=== PATIENT | female | born 1950 | race Caucasian/White ===

== ENCOUNTER 2019-09-15 17:49 | Emergency (ER) | payer MEDICARE, OTHER, SELFPAY ==
[2019-09-15 17:52] VITALS: BP 137/69; PULSE 79; RESP 18; TEMP 38.2; O2SAT 94; BMI 38.0
--- NOTE | 2019-09-15 18:13 | CT_ITS ---
PROCEDURE: CT HEAD/BRAIN WO CON CLINICAL INDICATION: weakness Dizziness COMPARISON: No exams were available for comparison TECHNIQUE: Axial images obtained. All CT scans at the facility use one or more dose reduction, viz: automated exposure control, ma/kV adjustment per patient size (including targeted exams where dose is matched to indication, i.e. head), or iterative reconstruction technique. FINDINGS: No midline shift, mass effect, intracranial hemorrhage, hydrocephalus, or extra-axial fluid collection is evident. There is generalized atrophy with hypoattenuation of the periventricular white matter consistent with microangiopathic changes. The calvarium has an unremarkable appearance. No mastoid effusion. No sinus air-fluid level. There is mild cortical thickening of the lateral wall the right maxillary sinus which could be due to prior chronic inflammatory changes. IMPRESSION: No acute intracranial finding Dictated by: Manan Haro MD 09/16/2019 07:35 Electronically signed by Manan Haro MD in [place] 09/16/2019 07:35
--- NOTE | 2019-09-15 18:13 | XR_ITS ---
PROCEDURE: XR CHEST PORTABLE CLINICAL HISTORY: cough COMPARISON: CXR2V XR chest 2V from 12/05/2017 CXR2 XR chest AP from 03/24/2018 FINDINGS: Mild cardiomegaly without failure. No lobar consolidation or collapse. There is an old right 6th rib fracture with callus formation causing increased density in the right midlung. Degenerative changes are present in the shoulders. IMPRESSION: Mild cardiomegaly, no acute finding Dictated by: Manan Haro MD 09/16/2019 07:06 Electronically signed by Manan Haro MD in [place] 09/16/2019 07:06
[2019-09-15 18:31] VITALS: BP 118/70; PULSE 70; RESP 18; O2SAT 94
[2019-09-15 18:39] LABS: Basophils % 0.5 % (0.1-2.0); Eosinophils # 0.2 K/mm3 (0.0-0.4); Eosinophils % 1.9 % (0.1-12.0); Hematocrit 36.5 % (37.0-47.0); Hemoglobin 12.1 g/dL (12.2-16.2); Lymphocytes # 1.2 K/mm3 (0.7-4.5); Lymphocytes % 14.8 % (10-50); Mean Corpuscular HGB Conc 33.3 g/dL (31.8-35.4); Mean Corpuscular Hemoglobin 29.4 pg (27.0-31.2); Mean Corpuscular Volume 88.3 fl (81-99); Mean Platelet Volume 9.4 fl (7.4-10.4); Monocytes # 0.4 K/mm3 (0.1-1.0); Monocytes % 4.4 % (1.7-9.3); Neutrophils # 6.4 K/mm3 (1.8-7.8); Neutrophils % 78.5 % (37.0-80.0); Platelet Count 125 K/mm3 (142-424); Red Blood Count 4.13 M/mm3 (4.20-5.40); Red Cell Distribution Width 14.6 % (11.5-17.5); White Blood Count 8.2 K/mm3 (4.8-10.8)
[2019-09-15 18:42] LABS: Chloride 108 mmol/L (98-107); Potassium 4.5 mmoL/L (3.5-5.1); Sodium 141 mmol/L (136-145)
[2019-09-15 18:44] LABS: Alanine Aminotransferase 16 U/L (12-78); Aspartate Amino Transferase 23 U/L (14-36); Blood Urea Nitrogen 28 mg/dl (7-17); Creatinine Clearance Estimated 53 mL/min (50-200); Estimated Glomerular Filt Rate 30 ml/min (>60); GFR (African American) 36 ML/MIN (>60)
[2019-09-15 18:45] LABS: Albumin Level 3.8 g/dl (3.5-5.0); Albumin/Globulin Ratio 1.2 (1.1-1.8); Alkaline Phosphatase 139 U/L (38-126); Anion Gap 12.5 mEq/L (5-15); Bilirubin,Total 0.6 mg/dl (0.2-1.3); Calcium 9.6 mg/dl (8.4-10.2); Carbon Dioxide 25 mmol/L (22.0-30.0); Globulin 3.1 g/dL (1.3-3.2); Glucose 147 mg/dl (74-100); Total Protein,Serum 6.9 g/dl (6.3-8.2)
[2019-09-15 18:58] LABS: Troponin I 0.01 ng/ml (0.00-0.034)
--- NOTE | 2019-09-15 19:03 | HMH.EDGENADL ---
ED Disposition Clinical Impression: Acute kidney injury, Bronchitis, Diabetes Disposition: Still a Patient Condition on Discharge: Good Referrals: Marcio Rodriguez MD [Primary Care Provider] - - Critical Care Critical Care Time: No Attestation: On 09/15/19, the high probability of a clinically significant, sudden or life threatening deterioration of the following system(s) required my full and direct attention, intervention and personal management. The time I documented below is in addition to time spent performing reported procedures but includes the following listed in this critical care notation. Medical Decision Making - Kristopher Inquiry Pt receiving controlled substance: No Vital Signs: 09/15/19 17:52 09/15/19 18:31 Temperature 100.8 F H Temperature Source Oral Pulse Rate [Right] 79 70 Respiratory Rate 18 18 Blood Pressure [Right Arm] 137/69 118/70 Blood Pressure Mean [Right Arm] 91 86 Blood Pressure Source [Right Arm] Automatic Cuff Blood Pressure Position [Right Arm] Sitting 02 Sat by Pulse Oximetry 94 L 94 L Oxygen Delivery Method Room Air Room Air - Lab Data Lab Results 09/15/19 18:28: WBC 8.2, RBC 4.13 L, Hgb 12.1 L, Hct 36.5 L, MCV 88.3, MCH 29.4, MCHC 33.3, RDW 14.6, Plt Count 125 L, MPV 9.4, Neut % (Auto) 78.5, Lymph % (Auto) 14.8, [place] % (Auto) 4.4, Eos % (Auto) 1.9, Baso % (Auto) 0.5, Neut # (Auto) 6.4, Lymph # (Auto) 1.2, [place] # (Auto) 0.4, Eos # (Auto) 0.2, Baso # (Auto) 0.0 09/15/19 18:28: Sodium 141, Potassium 4.5, Chloride 108 H, Carbon Dioxide 25, Anion Gap 12.5, BUN 28 H, Creatinine 1.70 H, Estimated Creat Clear 53, Estimated GFR 30 L, Est GFR ( Amer) 36 L, Glucose 147 H, Calcium 9.6, Total Bilirubin 0.6, AST 23, ALT 16, Alkaline Phosphatase 139 H, Troponin I 0.01, Total Protein 6.9, Albumin 3.8, Globulin 3.1, Albumin/Globulin Ratio 1.2 09/15/19 19:07: Influenza Type A Ag Negative, Influenza Type B Ag Negative Result diagrams: 09/15/19 18:28 09/15/19 18:28 Orders (Tests/Meds): ED MEDICATIONS Generic Name Dose Route Start Last Admin Trade Name Freq PRN Reason Stop Dose Admin Sodium Chloride 1,000 mls @ 999 mls/hr 09/15/19 19:15 Sod Chlor 0.9% 1000ml Bag IV 09/15/19 20:15 .[id number] LIZZETH Discontinued Medications Generic Name Dose Route Start Last Admin Trade Name Freq PRN Reason Stop Dose Admin Acetaminophen 1,000 mg 09/15/19 19:04 Tylenol 500mg Tablet PO 09/15/19 19:05 ONCE ONE ORDERS Category Date Time Status CT head/brain wo con Stat Cat Scan 09/15/19 18:13 Taken XR chest portable Stat Exams 09/15/19 18:13 Taken Urinalysis and Microscopic Stat Lab 09/15/19 19:40 Received - Reevaluation(s) Time: 19:46 Reevaluation #1: On reevaluation, the patient is feeling better. Patient was signed out to oncoming physician pending further evaluation and treatment Medical Decision Narrative: 69-year-old female presented to the emergency department with fever and generalized weakness. Patient is running a low-grade fever on initial examination. She has no focal deficits. No respiratory distress. Work-up initiated. General Adult HPI - General Chief complaint: Fall Stated complaint: light headed Time Seen by Provider: 09/15/19 17:55 Mode of Arrival: EMS Limitations: No Limitations Description of Symptoms (Recalled from ER Triage Doc. by RN): pt states she is light headed and when she tries to stand up she falls backwards. pt states she fell on her bottom. - History of Present Illness HPI narrative: 69-year-old female presented to the emergency department with generalized weakness. Patient states that she has been feeling bad for the last few days. She states that she has no energy. She has a mild nonproductive cough as well. Patient states that she stood up today and got very lightheaded. She felt like she was going to pass out. She fell backwards onto her backside. She did not actually lose consciousness. Patient de
[2019-09-15 19:44] LABS: Microscopic, Urine URINE MICROSCOPIC (MICROSCOPIC)
[2019-09-15 19:48] LABS: Blood, Urine Negative (Negative); Glucose,Urine (UA) Negative (Negative); Ketones,Urine TRACE (Negative); Leukocyte Esterase,Urine 2+ (Negative); Nitrate,Urine POSITIVE (Negative); Protein,Urine 1+ (Negative); Specific Gravity, Urine 1.025 (1.005-1.030)
[2019-09-15 19:57] LABS: Appearance,Urine Slightly Cloudy (Clear); Bacteria,Urine 2+ /lpf; Bilirubin,Urine Negative (Negative); Color,Urine Dark Yellow (Yellow); WBC,Urine 20-50 #/hpf (0-3)
--- NOTE | 2019-09-15 20:14 | PC.NURSE ---
[facility] and she stated the pt woudnt be able to be properly quarantined because their quarantine room was being taken up already
--- NOTE | 2019-09-15 20:44 | PC.NURSE ---
spoke with Elvis at [facility] and informed her the pt would be returning to their residence and will not be tested for COVID per .
--- NOTE | 2019-09-15 21:00 | PC.NURSE ---
spoke with ofelia she is trying to find transportation for pt
[2019-09-15 21:02] VITALS: BP 121/80; PULSE 72; RESP 18; O2SAT 95
[2019-09-15 21:43] VITALS: BP 121/62; PULSE 52; RESP 16; TEMP 37.1; O2SAT 96
== END 2019-09-15 21:44 | disposition home or self-care (01) ==
PROVIDERS: Emergency Provider Emergency Medicine; PCP Emergency Medicine
DX: N17.9 Acute kidney failure, unspecified (principal); J20.9 Acute bronchitis, unspecified; E11.65 Type 2 diabetes mellitus with hyperglycemia; K21.9 Gastro-esophageal reflux disease without esophagitis; Z79.899 Other long term (current) drug therapy; Z88.8 Allergy status to other drugs, medicaments and biological substances
CPT/HCPCS: 70450; 71045; 80053; 81001; 84484; 85025; 87086; 87088; 87186; 87275; 87276; 96365; 96367; 99283; 99284

== ENCOUNTER 2019-09-28 17:01 | Observation (INO) | payer MEDICARE, OTHER, SELFPAY ==
[2019-09-28] VITALS (9 sets, daily range): BP systolic 109–170; BP diastolic 63–89; PULSE 49–95; RESP 14–20; TEMP 36.8–36.9; O2SAT 94–99; BMI 15.9; BMI 35.2; BMI 34.6
--- NOTE | 2019-09-28 16:57 | ECG_ITS ---
APPROVED REPORT Exam: Resting ECG HR:49 bpm ECG Measurements Heart Rate 49 AXES FL 164 P 0 QRSd 72 QRS -17 QT 450 T 80 QTc 406 <Conclusion> Marked sinus bradycardia Low voltage QRS Inferior infarct, age undetermined Cannot rule out Anteroseptal infarct, age undetermined Abnormal ECG Electronically signed by : Rainer Asher, 09/30/2019 08:07:50
--- NOTE | 2019-09-28 17:02 | XR_ITS ---
PROCEDURE: XR CHEST PORTABLE CLINICAL HISTORY: CP Chest pain COMPARISON: CXR2V XR chest 2V from 12/05/2017 CXR2 XR chest AP from 03/24/2018 XR CHEST PORTABLE from 09/15/2019 FINDINGS: There is cardiomegaly without failure. No lobar consolidation or collapse Degenerative changes of the shoulders IMPRESSION: Cardiomegaly Dictated by: Manan Haro MD 09/28/2019 18:27 Electronically signed by Manan Haro MD in [place] 09/28/2019 18:27
[2019-09-28 17:23] LABS: Anion Gap 13.4 mEq/L (5-15); Blood Urea Nitrogen 16 mg/dl (7-17); Calcium 9.4 mg/dl (8.4-10.2); Carbon Dioxide 30 mmol/L (22.0-30.0); Chloride 105 mmol/L (98-107); Creatinine Clearance Estimated 81 mL/min (50-200); Estimated Glomerular Filt Rate 49 ml/min (>60); GFR (African American) 60 ML/MIN (>60); Glucose 138 mg/dl (74-100); Potassium 4.4 mmoL/L (3.5-5.1); Sodium 144 mmol/L (136-145)
[2019-09-28 17:25] LABS: Basophils % 0.6 % (0.1-2.0); Eosinophils # 0.2 K/mm3 (0.0-0.4); Eosinophils % 2.2 % (0.1-12.0); Hematocrit 37.7 % (37.0-47.0); Hemoglobin 12.6 g/dL (12.2-16.2); Lymphocytes # 2.1 K/mm3 (0.7-4.5); Lymphocytes % 27.8 % (10-50); Mean Corpuscular HGB Conc 33.3 g/dL (31.8-35.4); Mean Corpuscular Hemoglobin 29.5 pg (27.0-31.2); Mean Corpuscular Volume 88.6 fl (81-99); Mean Platelet Volume 9.5 fl (7.4-10.4); Monocytes # 0.4 K/mm3 (0.1-1.0); Monocytes % 4.6 % (1.7-9.3); Neutrophils # 4.9 K/mm3 (1.8-7.8); Neutrophils % 64.8 % (37.0-80.0); Platelet Count 141 K/mm3 (142-424); Red Blood Count 4.26 M/mm3 (4.20-5.40); Red Cell Distribution Width 14.4 % (11.5-17.5); White Blood Count 7.6 K/mm3 (4.8-10.8)
--- NOTE | 2019-09-28 17:31 | HMH.EDCP ---
ED Disposition Clinical Impression: Atypical chest pain, Unstable angina pectoris Disposition: Still a Patient Condition on Discharge: Fair Referrals: Marcio Rodriguez MD [Primary Care Provider] - Time of Disposition: 19:36 - Critical Care Critical Care Time: No Attestation: On 09/28/19, the high probability of a clinically significant, sudden or life threatening deterioration of the following system(s) required my full and direct attention, intervention and personal management. The time I documented below is in addition to time spent performing reported procedures but includes the following listed in this critical care notation. Medical Decision Making - Medical Records Medical records reviewed: Yes: I reviewed the patient's medical records. - Kristopher Inquiry Pt receiving controlled substance: No Vital Signs: 09/28/19 17:01 09/28/19 18:24 09/28/19 19:00 Temperature 98.2 F Temperature Source Oral Pulse Rate [Right] 49 L 58 L 52 L Respiratory Rate 17 20 20 Blood Pressure [Right Arm] 119/64 127/63 109/86 L Blood Pressure Mean [Right Arm] 82 84 93 Blood Pressure Source [Right Arm] Automatic Cuff Blood Pressure Position [Right Arm] Sitting 02 Sat by Pulse Oximetry 96 94 L 98 Oxygen Delivery Method Room Air Room Air 09/28/19 19:27 Temperature Temperature Source Pulse Rate [Right] 95 H Respiratory Rate 18 Blood Pressure [Right Arm] 127/67 Blood Pressure Mean [Right Arm] 87 Blood Pressure Source [Right Arm] Blood Pressure Position [Right Arm] 02 Sat by Pulse Oximetry 98 Oxygen Delivery Method Room Air - Lab Data Lab Results 09/28/19 17:03: WBC 7.6, RBC 4.26, Hgb 12.6, Hct 37.7, MCV 88.6, MCH 29.5, MCHC 33.3, RDW 14.4, Plt Count 141 L, MPV 9.5, Neut % (Auto) 64.8, Lymph % (Auto) 27.8, [place] % (Auto) 4.6, Eos % (Auto) 2.2, Baso % (Auto) 0.6, Neut # (Auto) 4.9, Lymph # (Auto) 2.1, [place] # (Auto) 0.4, Eos # (Auto) 0.2, Baso # (Auto) 0.0 09/28/19 17:03: Sodium 144, Potassium 4.4, Chloride 105, Carbon Dioxide 30, Anion Gap 13.4, BUN 16, Creatinine 1.10 H, Estimated Creat Clear 81, Estimated GFR 49 L, Est GFR ( Amer) 60, Glucose 138 H, Calcium 9.4, Troponin I < 0.01 Result diagrams: 09/28/19 17:03 09/28/19 17:03 Orders (Tests/Meds): ED MEDICATIONS Discontinued Medications Generic Name Dose Route Start Last Admin Trade Name Suzanne PRN Reason Stop Dose Admin Aspirin 325 mg 09/28/19 17:31 09/28/19 18:13 Aspirin 325mg Tablet PO 09/28/19 17:32 Not Given ONCE ONE Aspirin 243 mg 09/28/19 18:14 09/28/19 18:15 Aspirin 81mg Chewable Tablet PO 09/28/19 18:15 243 mg ONCE ONE Administration Nitroglycerin 0.4 mg 09/28/19 19:14 09/28/19 19:16 Nitrostat 0.4mg Sl Tablet SL 09/28/19 19:15 0.4 mg ONCE ONE Administration ORDERS Category Date Time Status Troponin I Q3H Lab 09/28/19 20:15 Ordered Troponin I Q3H Lab 09/28/19 23:15 Ordered ECG Request by /Jhon Stat Y 09/28/19 17:02 Ordered EKG Request [ECG Request by /Jhon] Stat Y 09/28/19 19:16 Ordered - COLBY Score for Non-Stemi Age of Patient: 60-69 years old Heart Rate: 50-69 bpm Systolic Blood Pressure: 100-119 mmHg Serum Creatinine: 0.80-1.19 mg/dl CHF Killip Class: I-No CHF Other Risk Factors: None Non-Stemi Risk Score: 111 Medical Decision Narrative: In summary this is a 69-year-old female presenting to the emergency department with chest pain. Patient is conversational on arrival. She is bradycardic to 50 bpm. Other vital signs are stable. She is mentating appropriately. Differential diagnoses include acute coronary syndrome, vasospasm, medication overuse. Plan to obtain CBC, BMP, chest x-ray, EKG, troponin profile. Patient given 325 mg chewable aspirin. EKG shows no significant ST segment elevation or ischemia. Does show bradycardia and low voltage. Initial troponin is not elevated. Patient continued to have chest pain. Given sublingual nitroglycerin. Blood pressure remai
[2019-09-28 17:37] LABS: Troponin I < 0.01 ng/ml (0.00-0.034)
--- NOTE | 2019-09-28 19:37 | ECG_ITS ---
APPROVED REPORT Exam: Resting ECG HR:47 bpm ECG Measurements Heart Rate 47 AXES GA 168 P 77 QRSd 72 QRS 0 QT 466 T 59 QTc 412 <Conclusion> Marked sinus bradycardia Low voltage QRS Septal infarct, age undetermined Abnormal ECG Electronically signed by : Rainer Asher, 09/30/2019 08:07:16
[2019-09-28 21:04] LABS: Troponin I 0.02 ng/ml (0.00-0.034)
[2019-09-28 21:38] LABS: Coronavirus 19 IgG Antibody Negative (Negative); Coronavirus 19 IgM Antibody Negative (Negative)
--- NOTE | 2019-09-28 22:09 | PC.NURSE ---
PT ARRIVED TO THE FLOOR VIA W/C FROM ED AT 2207
--- NOTE | 2019-09-28 22:09 | HMH.HP ---
*Admission Date: 09/28/19 *Chief complaint: chest pain *History of present illness: this wf presented with chest pain from local [facility]-pt dev chest [id number]-old female presenting to the emergency department with chest pain. Symptoms started today around lunchtime, 5 hours ago. Described as a pressure sensation across her chest. Feels very heavy. She has pain that radiates into her left side of her jaw and her left arm. No numbness, weakness, tingling. She has had symptoms like this before, 10 years ago when she had a heart attack. She does know what medications she takes. Says she takes whatever she is given at her [facility]. She took a nap after the pain started, but it returned this evening. She has pain on arrival. Has not taken aspirin. summary this is a 69-year-old female presenting to the emergency department with chest pain. Patient is conversational on arrival. She is bradycardic to 50 bpm. Other vital signs are stable. She is mentating appropriately. Differential diagnoses include acute coronary syndrome, vasospasm, medication overuse. Plan to obtain CBC, BMP, chest x-ray, EKG, troponin profile. Patient given 325 mg chewable aspirin. EKG shows no significant ST segment elevation or ischemia. Does show bradycardia and low voltage. Initial troponin is not elevated. Patient continued to have chest pain. Given sublingual nitroglycerin. Blood pressure remained stable. Other laboratory results are generally unremarkable. Repeat EKG shows no dynamic changes. Delta troponin shows no change. Patient is at moderate risk with chest pain. Will admit for further observation and management as indicated. pt was admitted for eval and treatment [facility] History I have reviewed the patient's past medical history: Yes Medical History: Reports:: Anxiety, Congestive Heart Failure, Diabetes Mellitus Type 1, Diabetes Mellitus Type 2, Gastroesophageal Reflux Disease(GERD) Denies:: Cancer, MRSA *Have you ever received a pneumonia vaccine?: No *Have you received a flu vaccine this season?: No Other Medical History: Reports: Anemia Other Surgeries: Yes: No Previous Surgery Amputation: No Fractures: Yes - *Social History Smoking Status: Never smoker Alcohol Intake: never Alcohol Intake Frequency:: 0-2 drinks per day Substance Use Type: denies use *Occupational Status:: unemployed, disabled Housing: assisted living facility Household Members: caregiver *Travel in the last 8 weeks: None - Psychiatric History Pschychiatric History:: Reports:: Anxiety Family Hx:: No significant family history Review of Systems - Review of Systems Review of systems:: pertinent systems reviewed and negative unless documented below - Constitutional Denies fever(s) - Eyes Denies change in vision - ENT Denies sore throat - *Cardiovascular Reports chest pain at rest - *Respiratory Denies cough - *Gastrointestinal Denies abdominal pain - *Genitourinary Denies blood in urine - *Musculoskeletal Denies joint pain - Integumentary/Breasts Denies rash - *Neurologic Denies headache(s), Denies numbness - Psychiatric Denies thoughts of hurting/killing yourself Meds Home Medications Medication Instructions Recorded Confirmed Type amlodipine 2.5 mg tablet 2.5 mg PO DAILY 02/17/18 09/28/19 History aripiprazole 30 mg tablet 30 mg PO DAILY 02/17/18 09/28/19 History aspirin 81 mg tablet,delayed 81 mg PO DAILY 02/17/18 09/28/19 History release atorvastatin 20 mg tablet 20 mg PO QHS 02/17/18 09/28/19 History buspirone 5 mg tablet 5 mg PO BID 02/17/18 09/28/19 History ferrous sulfate 325 mg (65 mg 325 mg PO BID tab 02/17/18 09/28/19 History iron) tablet glipizide 10 mg tablet 10 mg PO BID 02/17/18 09/28/19 History lamotrigine 100 mg tablet 100 mg PO DAILY 02/17/18 09/28/19 History lisinopril 20 mg tablet 20 mg PO BID tab 02/17/18 09/28/19 History pantoprazole 40 mg tablet,delayed 40 mg PO DAILY 02/17/18 09/28/19 History
[2019-09-28 23:35] LABS: Troponin I 0.02 ng/ml (0.00-0.034)
[2019-09-29] VITALS: BP 132/62; PULSE 50; PULSE 51; RESP 18; TEMP 36.3; O2SAT 95
[2019-09-29 00:32] LABS: Troponin I 0.01 ng/ml (0.00-0.034)
[2019-09-29 03:23] LABS: Troponin I 0.02 ng/ml (0.00-0.034)
[2019-09-29 03:52] VITALS: BP 136/67; PULSE 43; RESP 14; TEMP 36.4; O2SAT 96
[2019-09-29 04:00] VITALS: PULSE 52
[2019-09-29 04:03] VITALS: BMI 35.4
--- NOTE | 2019-09-29 04:51 | PC.NURSE ---
cardiac has shown SB, between 35-50, BP 130 systolic, pt denies dizziness, weakness, or any further chest pain
--- NOTE | 2019-09-29 06:06 | PC.NURSE ---
Yadiel DE LA FUENTE NOTIFIED OF CONSULT.
[2019-09-29 07:27] LABS: Basophils % 0.6 % (0.1-2.0); Chloride 106 mmol/L (98-107); Eosinophils # 0.2 K/mm3 (0.0-0.4); Eosinophils % 3.3 % (0.1-12.0); Hematocrit 37.1 % (37.0-47.0); Hemoglobin 12.5 g/dL (12.2-16.2); Lymphocytes # 1.9 K/mm3 (0.7-4.5); Lymphocytes % 32.4 % (10-50); Mean Corpuscular HGB Conc 33.8 g/dL (31.8-35.4); Mean Corpuscular Hemoglobin 29.4 pg (27.0-31.2); Mean Platelet Volume 9.5 fl (7.4-10.4); Monocytes # 0.3 K/mm3 (0.1-1.0); Monocytes % 4.4 % (1.7-9.3); Neutrophils # 3.5 K/mm3 (1.8-7.8); Neutrophils % 59.3 % (37.0-80.0); Platelet Count 121 K/mm3 (142-424); Red Blood Count 4.26 M/mm3 (4.20-5.40); Red Cell Distribution Width 14.3 % (11.5-17.5); Sodium 144 mmol/L (136-145)
[2019-09-29 07:28] LABS: Potassium 4.1 mmoL/L (3.5-5.1)
[2019-09-29 07:31] LABS: Anion Gap 11.1 mEq/L (5-15); Blood Urea Nitrogen 15 mg/dl (7-17); Carbon Dioxide 31 mmol/L (22.0-30.0); Creatinine Clearance Estimated 82 mL/min (50-200); Estimated Glomerular Filt Rate 49 ml/min (>60); GFR (African American) 60 ML/MIN (>60); Glucose 65 mg/dl (74-100)
--- NOTE | 2019-09-29 07:55 | HMH.PHAVTE ---
[facility] Pharmacy VTE Monitoring - Patient Demographics Admission date: 09/28/19 Report Date: 09/29/19 Time: 07:55 Allergies/Adverse Reactions: Patient Allergies pentazocine [PENTAZOCINE] Allergy (Intermediate, Verified 09/28/19 23:00) CRAZY prochlorperazine [PROCHLORPERAZINE] Allergy (Intermediate, Verified 09/28/19 23:00) ITCHING lithium [LITHIUM] Allergy (Unknown, Verified 09/28/19 23:00) Height: 1.73 m Weight: 106 kg Patient Problems: Current Active Problems (Last Updated 03/21/18 @ 17:14 by Perez Lehman APRN) Atypical chest pain (Acute) Unstable angina pectoris (Acute) - VTE Risk Labs: VTE Related Lab Results Hgb 12.5 g/dL (12.2-16.2) 09/29/19 06:44 Hct 37.1 % (37.0-47.0) 09/29/19 06:44 Plt Count 121 K/mm3 (142-424) L 09/29/19 06:44 BUN 15 mg/dl (7-17) 09/29/19 06:44 Creatinine 1.10 mg/dl (0.52-1.04) H 09/29/19 06:44 Estimated Creat Clear 82 mL/min (50-200) 09/29/19 06:44 Was VTE Risk Assessment Performed: Yes VTE Score: 6 VTE Risk Level: Moderate Risk - Prophylaxis VTE Prophylaxis Ordered?: Yes Types of VTE Prophylaxis: IPCS Thigh High Location of Applied Device: Bilateral Lower Extremeties - VTE Diagnosis Confirmed Treatment or plan recommended: Continue Current Treatment
[2019-09-29 08:00] VITALS: BP 141/79; PULSE 50; RESP 20; TEMP 36.7; O2SAT 95
--- NOTE | 2019-09-29 08:00 | CA_ITS ---
APPROVED REPORT EXAM: Comprehensive 2D, Doppler, and color-flow Echocardiogram Head Bone Grinder: Analy Coker RT(R) Ht: 5 ft 8 in Wt: 232lbs BSA: 2.18 BP: 131/89 mmHg Indications: CP, DM, CHF, GERD 2D Dimensions LVOT 1.77 cm (M/F) 1.5-2.5 M-Mode Dimensions RVDd 3.14 cm (0.9-2.6) LVDd 4.83 cm (3.5-5.7) LVDs 2.70 cm (3.5-5.7) IVSd 1.33 cm (0.6-1.1) PWd 1.41 cm (0.6-1.1) EF (Teich) 75.30% FS 44.10% EDV (Teich) 109.10 mL ESV (Teich) 27.00 mL LV Diastology E/A Ratio 1.28 Mitral Valve MV A Velocity 85.00 (40-130 cm/s) Left Ventricle Left atrium is mildly enlarged, left ventricle is normal size, mild concentric left ventricular hypertrophy, visually estimated ejection fraction 55% with no regional wall motion abnormality. Diastolic parameters are inconclusive. Right Ventricle Right atrium and right ventricular mildly enlarged with normal contractility. Aortic Valve Aortic valve is thickened and calcified leaflet chordae display good mobility, there is no aortic stenosis or aortic insufficiency. Mitral Valve Mitral valve leaflets are thickened and calcified, there is mitral annular calcification present, there is no mitral stenosis, there is mild mitral regurgitation. Tricuspid Valve Tricuspid valve is grossly normal, there is mild tricuspid regurgitation, calculated right ventricular systolic pressure is 47 mmHg. Pulmonic Valve Pulmonic valve is poorly visualized. Great Vessels Aortic root is normal size. Pericardium No significant pericardial effusion noted. Conclusion 1. Biatrial enlargement, normal left ventricular size, mild concentric left ventricular hypertrophy, visually estimated ejection fraction 55% with no regional wall motion abnormality, diastolic parameters are inconclusive. 2. Thickened and calcified aortic valve without aortic stenosis or aortic insufficiency. 3. Mildly enlarged right ventricle with normal contractility. 4. Mild mitral and tricuspid regurgitation, calculated right ventricular systolic pressure is 47 mmHg. 5. No significant pericardial effusion noted. Electronically signed by : Pineda Thomas, 09/29/2019 14:30:11
--- NOTE | 2019-09-29 08:50 | HMH.CNCARD ---
History of Present Illness Consult date: 09/29/19 Requesting physician: Marcio Rodriguez Consult reason: chest pain Chief complaint: chest pain Additional Medical History:: 1. History of myocardial infarction, per patient, approximately 10 years ago with reported cardiac catheterization at [facility] in [place] finding no significant coronary artery disease that needed intervention 2. Hypertension 3. Hyperlipidemia 4. Presumed esophageal stricture with history of therapy/EGD and correction in the past. 5. Diabetes mellitus type 2 6. Thrombocytopenia 7. CKD, stage II History of present illness: 69-year-old white female reports onset of substernal chest discomfort with feeling as if something was sitting on her chest. Radiation of symptoms into the neck and left shoulder. Patient was brought to the emergency department at which time she was given sublingual nitroglycerin but states this did not help her. Symptoms gradually improved. She was kept overnight for observation with troponins returning normal x5. EKG is sinus rhythm with poor R wave progression versus old anteroseptal IA noted. No acute ST segment changes noted. Preliminary echocardiogram this morning shows preserved ejection fraction with mild to moderate mitral regurgitation and evidence of elevated right ventricular systolic pressure. Patient does relate history of diuretic use but discontinued it because I am taking another pill to help me with not peeing so much. Patient denies any chest discomfort at this time. She is eating breakfast with no difficulty. She does relate a history of GI problem related to difficulty swallowing at which time she reports that she had a procedure to correct that but cannot remember what was done. [facility] History Medical History: Reports:: Anxiety, Congestive Heart Failure, Diabetes Mellitus Type 2, Gastroesophageal Reflux Disease(GERD), Myocardial Infarction Denies:: Cancer, Diabetes Mellitus Type 1, MRSA *Have you ever received a pneumonia vaccine?: Yes *Have you received a flu vaccine this season?: Yes Other Medical History: Reports: Anemia, Arthritis Laterality Cases: Left: Arthroscopy Shoulder, Total Knee Replacement Other Surgeries: Yes: No Previous Surgery, Cardiac Catheterization Amputation: No Fractures: Yes - *Social History Last grade of school completed: High school graduate Smoking Status: Never smoker Alcohol Intake: never Alcohol Intake Frequency:: 0-2 drinks per day Substance Use Type: denies use *Occupational Status:: retired Housing: assisted living facility Household Members: other *Travel in the last 8 weeks: None - Psychiatric History Pschychiatric History:: Reports:: Anxiety Family Hx:: Asthma, Cancer, Heart Attack, Hyperlipidemia, Hypertension, Substance abuse, Alcoholism, Mental illness Meds Home Medications Medication Instructions Recorded Confirmed Type amlodipine 2.5 mg tablet 2.5 mg PO DAILY 02/17/18 09/28/19 History aripiprazole 30 mg tablet 30 mg PO DAILY 02/17/18 09/28/19 History aspirin 81 mg tablet,delayed 81 mg PO DAILY 02/17/18 09/28/19 History release atorvastatin 20 mg tablet 20 mg PO QHS 02/17/18 09/28/19 History buspirone 5 mg tablet 5 mg PO BID 02/17/18 09/28/19 History ferrous sulfate 325 mg (65 mg 325 mg PO BID tab 02/17/18 09/28/19 History iron) tablet glipizide 10 mg tablet 10 mg PO BID 02/17/18 09/28/19 History lamotrigine 100 mg tablet 100 mg PO DAILY 02/17/18 09/28/19 History lisinopril 20 mg tablet 20 mg PO BID tab 02/17/18 09/28/19 History pantoprazole 40 mg tablet,delayed 40 mg PO DAILY 02/17/18 09/28/19 History release quetiapine 50 mg tablet 50 mg PO QHS tab 02/17/18 09/28/19 History ranolazine 1,000 mg 1,000 mg PO BID 02/17/18 09/28/19 History tablet,extended release,12 hr sertraline 100 mg tablet 100 mg PO DAILY 02/17/18 09/28/19 History Gabapentin [Neurontin 100mg 200 mg PO HS 03/24/18 09/28/19 History cap] Isosorbide Mononitrate [Imdur 60m
--- NOTE | 2019-09-29 10:11 | SW/DCPLANNER ---
CALLED [facility] TO INFORM THEM PATIENT IS DISCHARGING BACK THERE TODAY... NO SIGNIFICANT CHANGES WITH HER CONDITION THAT WOULD WARRANT A HIGHER LEVEL OF CARE...
[2019-09-29 12:00] VITALS: BP 131/65; PULSE 50; RESP 16; TEMP 36.7; O2SAT 97
--- NOTE | 2019-09-29 12:36 | HMH.PHAINT ---
MEDICATION RECONCILIATION COMPLETED ON PATIENT USING MAR FROM [facility]. -VASU CAO, SHAILAD
--- NOTE | 2019-09-29 12:53 | HMH.DCSUM ---
General - General Admission date:: 09/28/19 Discharge date: 09/29/19 HPI HPI: this wf presented with chest pain from local detention-pt dev chest [id number]-old female presenting to the emergency department with chest pain. Symptoms started today around lunchtime, 5 hours ago. Described as a pressure sensation across her chest. Feels very heavy. She has pain that radiates into her left side of her jaw and her left arm. No numbness, weakness, tingling. She has had symptoms like this before, 10 years ago when she had a heart attack. She does know what medications she takes. Says she takes whatever she is given at her group home. She took a nap after the pain started, but it returned this evening. She has pain on arrival. Has not taken aspirin. summary this is a 69-year-old female presenting to the emergency department with chest pain. Patient is conversational on arrival. She is bradycardic to 50 bpm. Other vital signs are stable. She is mentating appropriately. Differential diagnoses include acute coronary syndrome, vasospasm, medication overuse. Plan to obtain CBC, BMP, chest x-ray, EKG, troponin profile. Patient given 325 mg chewable aspirin. EKG shows no significant ST segment elevation or ischemia. Does show bradycardia and low voltage. Initial troponin is not elevated. Patient continued to have chest pain. Given sublingual nitroglycerin. Blood pressure remained stable. Other laboratory results are generally unremarkable. Repeat EKG shows no dynamic changes. Delta troponin shows no change. Patient is at moderate risk with chest pain. Will admit for further observation and management as indicated. pt was admitted for eval and treatment Hospital Course Hospital Course: pt has did well in hospital with no chest pain and card enz ok - she was seen by card - History of myocardial infarction, per patient, approximately 10 years ago with reported cardiac catheterization at [facility] in [place] finding no significant coronary artery disease that needed intervention 2. Hypertension 3. Hyperlipidemia 4. Presumed esophageal stricture with history of therapy/EGD and correction in the past. 5. Diabetes mellitus type 2 6. Thrombocytopenia 7. CKD, stage II History of present illness: 69-year-old white female reports onset of substernal chest discomfort with feeling as if something was sitting on her chest. Radiation of symptoms into the neck and left shoulder. Patient was brought to the emergency department at which time she was given sublingual nitroglycerin but states this did not help her. Symptoms gradually improved. She was kept overnight for observation with troponins returning normal x5. EKG is sinus rhythm with poor R wave progression versus old anteroseptal W[place] noted. No acute ST segment changes noted. Preliminary echocardiogram this morning shows preserved ejection fraction with mild to moderate mitral regurgitation and evidence of elevated right ventricular systolic pressure. Patient does relate history of diuretic use but discontinued it because I am taking another pill to help me with not peeing so much. Patient denies any chest discomfort at this time. She is eating breakfast with no difficulty. She does relate a history of GI problem related to difficulty swallowing at which time she reports that she had a procedure to correct that but cannot remember what was done. . Chest pressure with normal troponins x5, EKG without acute change and echocardiogram showing preserved ejection fraction with evidence of left ventricular end-diastolic dysfunction/elevated right ventricular systolic pressure. Recommend continuing the patient's amlodipine 2.5 mg daily, Ranexa 1000 mg twice daily and isosorbide 60 mg daily and aspirin 81 mg daily. Would recommend adding HCTZ 25 mg daily with plans to check a BMP in 1 week. Would schedule outpatient Lexiscan Myoview in the next 1 to 2 weeks. Follow-up in our office
--- NOTE | 2019-09-29 13:33 | SW/DCPLANNER ---
SET UP TRANSPORTATION FOR THIS PATIENT TO DISCHARGE BACK TO [facility] WITH [facility] TRANSPORT...
== END 2019-09-29 14:20 | disposition home or self-care (01) ==
LOC: ER 19:36 → 2ND 20:45
PROVIDERS: Admitting Provider Emergency Medicine; Emergency Provider Emergency Medicine; PCP Emergency Medicine; Visit Provider Emergency Medicine
DX: I13.0 Hypertensive heart and chronic kidney disease with heart failure and stage 1 through stage 4 chronic kidney disease, or unspecified chronic kidney disease (principal); E11.22 Type 2 diabetes mellitus with diabetic chronic kidney disease; N18.2 Chronic kidney disease, stage 2 (mild); I50.32 Chronic diastolic (congestive) heart failure; Z79.4 Long term (current) use of insulin; Z79.02 Long term (current) use of antithrombotics/antiplatelets; Z88.8 Allergy status to other drugs, medicaments and biological substances; I25.2 Old myocardial infarction; E78.5 Hyperlipidemia, unspecified; D69.6 Thrombocytopenia, unspecified; Z79.899 Other long term (current) drug therapy
CPT/HCPCS: 36415; 71045; 80048; 84484; 85025; 86328; 93005; 93306; 99284; G0378

== ENCOUNTER 2019-10-16 17:55 | Emergency (ER) | payer MEDICARE, OTHER, SELFPAY ==
[2019-10-16 17:55] VITALS: BP 135/67; PULSE 76; RESP 17; TEMP 38.4; O2SAT 95; BMI 34.9
--- NOTE | 2019-10-16 17:58 | XR_ITS ---
PROCEDURE: XR CHEST PORTABLE CLINICAL HISTORY: fever COMPARISON: CR CXR2 XR chest AP from 03/24/2018 CR XR CHEST PORTABLE from 09/15/2019 CR XR CHEST PORTABLE from 09/28/2019 FINDINGS: The cardiomediastinal silhouette and pulmonary vascularity are within normal limits. There are mild atelectatic changes in the left lower lobe. The remaining lungs are clear. No acute bony abnormalities. IMPRESSION: Mild left lower lobe atelectasis Dictated b Manan Haro MD 10/16/2019 22:42 Manan Haro MD in [place] 10/16/2019 22:42
--- NOTE | 2019-10-16 18:06 | PC.NURSE ---
Rad at bedside
[2019-10-16 18:42] LABS: Microscopic, Urine URINE MICROSCOPIC (MICROSCOPIC)
[2019-10-16 18:45] LABS: Appearance,Urine CLEAR (Clear); Bilirubin,Urine Negative (Negative); Blood, Urine TRACE-I (Negative); Color,Urine YELLOW (Yellow); Glucose,Urine (UA) Negative (Negative); Ketones,Urine Negative (Negative); Leukocyte Esterase,Urine 2+ (Negative); Nitrate,Urine POSITIVE (Negative); Protein,Urine TRACE (Negative); Specific Gravity, Urine 1.015 (1.005-1.030)
[2019-10-16 18:56] LABS: Amphetamine/Metha Screen,Urine Negative ng/ml (<1000); Benzodiazepines Screen,Urine Negative ng/ml (<200)
[2019-10-16 18:57] LABS: Barbiturates Screen,Urine Negative ng/ml (<200)
[2019-10-16 18:58] LABS: Basophils % 0.3 % (0.1-2.0); Eosinophils # 0.1 K/mm3 (0.0-0.4); Eosinophils % 0.6 % (0.1-12.0); Hematocrit 37.4 % (37.0-47.0); Hemoglobin 12.3 g/dL (12.2-16.2); Lymphocytes # 1.6 K/mm3 (0.7-4.5); Mean Corpuscular HGB Conc 32.9 g/dL (31.8-35.4); Mean Corpuscular Hemoglobin 28.7 pg (27.0-31.2); Mean Corpuscular Volume 87.2 fl (81-99); Mean Platelet Volume 9.3 fl (7.4-10.4); Monocytes # 0.6 K/mm3 (0.1-1.0); Monocytes % 5.8 % (1.7-9.3); Neutrophils # 8.5 K/mm3 (1.8-7.8); Neutrophils % 78.3 % (37.0-80.0); Platelet Count 124 K/mm3 (142-424); Red Blood Count 4.29 M/mm3 (4.20-5.40); Red Cell Distribution Width 14.4 % (11.5-17.5); White Blood Count 10.9 K/mm3 (4.8-10.8)
[2019-10-16 18:58] LABS: Cannabinoid Screen,Urine Negative ng/ml (<50); Cocaine Screen,Urine Negative ng/ml (<300)
[2019-10-16 18:59] LABS: Methadone Screen,Urine Negative ng/ml (<300); Opiate Screen,Urine Negative ng/ml (<300)
[2019-10-16 19:00] LABS: Phencyclidine Screen,Urine Negative ng/ml (<25)
[2019-10-16 19:05] LABS: Chloride 102 mmol/L (98-107); Potassium 4.1 mmoL/L (3.5-5.1); Sodium 140 mmol/L (136-145)
[2019-10-16 19:07] LABS: Blood Urea Nitrogen 16 mg/dl (7-17); Creatinine Clearance Estimated 68 mL/min (50-200); Estimated Glomerular Filt Rate 41 ml/min (>60); GFR (African American) 49 ML/MIN (>60)
[2019-10-16 19:08] LABS: Alanine Aminotransferase 16 U/L (12-78); Albumin Level 3.9 g/dl (3.5-5.0); Albumin/Globulin Ratio 1.1 (1.1-1.8); Alkaline Phosphatase 134 U/L (38-126); Anion Gap 11.1 mEq/L (5-15); Aspartate Amino Transferase 26 U/L (14-36); Bilirubin,Total 0.8 mg/dl (0.2-1.3); Calcium 10.2 mg/dl (8.4-10.2); Carbon Dioxide 31 mmol/L (22.0-30.0); Globulin 3.4 g/dL (1.3-3.2); Glucose 151 mg/dl (74-100); Total Protein,Serum 7.3 g/dl (6.3-8.2)
[2019-10-16 19:19] LABS: Lactic Acid 1.3 mmol/L (0.7-2.1)
[2019-10-16 19:22] LABS: Bacteria,Urine 1+ /lpf
--- NOTE | 2019-10-16 19:25 | HMH.EDWEAK ---
ED Disposition Clinical Impression: Dehydration, UTI (urinary tract infection), Malaise and fatigue Disposition: Home, Self-Care Condition on Discharge: Good Instructions: DI for Muscle Weakness, Urinary Tract Infection Prescriptions: levoFLOXacin [Levaquin 500mg tab] 500 mg PO DAILY 7 Days #7 tab Transmission Status: Pending to [facility] Referrals: Marcio Rodriguez MD [Primary Care Provider] - - Critical Care Critical Care Time: No Attestation: On 10/16/19, the high probability of a clinically significant, sudden or life threatening deterioration of the following system(s) required my full and direct attention, intervention and personal management. The time I documented below is in addition to time spent performing reported procedures but includes the following listed in this critical care notation. Medical Decision Making - Medical Records Medical records reviewed: Yes: I reviewed the patient's medical records. - Kristopher Inquiry Pt receiving controlled substance: No Vital Signs: 10/16/19 17:55 Temperature 101.2 F H Temperature Source Oral Pulse Rate [Right] 76 Respiratory Rate 17 Blood Pressure [Right Arm] 135/67 Blood Pressure Mean [Right Arm] 89 02 Sat by Pulse Oximetry 95 - Lab Data Lab results reviewed: Yes: I reviewed the patient's lab results. Lab Results 10/16/19 18:27: Urine Color Yellow, Urine Appearance Clear, Urine pH 7.0, Ur Specific [place] 1.015, Urine Protein Trace, Urine Glucose (UA) Negative, Urine Ketones Negative, Urine Blood Trace-i, Urine Nitrate Positive, Urine Bilirubin Negative, Urine Urobilinogen 2.0, Ur Leukocyte Esterase 2+ A, Urine WBC 5-10, Ur Squamous Epith Cells 3-5, Urine Bacteria 1+ 10/16/19 18:27: Urine Opiates Screen Negative, Urine Methadone Screen Negative, Ur Barbituates Screen Negative, Ur Phencyclidine Scrn Negative, Ur Amphetamines Screen Negative, U Benzodiazepines Scrn Negative, Urine Cocaine Screen Negative, U Marijuana (THC) Screen Negative 10/16/19 18:35: WBC 10.9 H, RBC 4.29, Hgb 12.3, Hct 37.4, MCV 87.2, MCH 28.7, MCHC 32.9, RDW 14.4, Plt Count 124 L, MPV 9.3, Neut % (Auto) 78.3, Lymph % (Auto) 15.0, Arroyo % (Auto) 5.8, Eos % (Auto) 0.6, Baso % (Auto) 0.3, Neut # (Auto) 8.5 H, Lymph # (Auto) 1.6, Arroyo # (Auto) 0.6, Eos # (Auto) 0.1, Baso # (Auto) 0.0 10/16/19 18:35: Sodium 140, Potassium 4.1, Chloride 102, Carbon Dioxide 31 H, Anion Gap 11.1, BUN 16, Creatinine 1.30 H, Estimated Creat Clear 68, Estimated GFR 41 L, Est GFR ( Amer) 49 L, Glucose 151 H, Calcium 10.2, Total Bilirubin 0.8, AST 26, ALT 16, Alkaline Phosphatase 134 H, Total Protein 7.3, Albumin 3.9, Globulin 3.4 H, Albumin/Globulin Ratio 1.1 10/16/19 18:35: Lactate 1.3 Result diagrams: 10/16/19 18:35 10/16/19 18:35 Orders (Tests/Meds): ED MEDICATIONS Generic Name Dose Route Start Last Admin Trade Name Freq PRN Reason Stop Dose Admin Sodium Chloride 1,000 mls @ 999 mls/hr 10/16/19 18:00 10/16/19 18:57 Sod Chlor 0.9% 1000ml Bag IV 10/16/19 19:00 999 mls/hr .[id number] LIZZETH Administration Levofloxacin/Dextrose 500 mg in 100 mls @ 100 mls/hr 10/16/19 19:30 Levaquin 500mg/100ml Premix IV 10/30/19 19:29 Q24H LIZZETH Protocol Discontinued Medications Generic Name Dose Route Start Last Admin Trade Name Freq PRN Reason Stop Dose Admin Acetaminophen 1,000 mg 10/16/19 17:59 10/16/19 18:57 Tylenol 500mg Tablet PO 10/16/19 18:00 1,000 mg ONCE ONE Administration ORDERS Category Date Time Status XR chest portable Stat Exams 10/16/19 17:58 Taken Coronavirus 19 Swab (OUTPT) Routine Lab 10/16/19 19:24 Ordered Blood Culture Stat Micro 10/16/19 18:35 Received Urine Culture Stat Micro 10/16/19 18:27 Received Weakness HPI - General Chief complaint: Weakness Stated complaint: lethargy, weakness Time Seen by Provider: 10/16/19 19:25 Mode of Arrival: EMS Source of Information: Patient Limitations: No Limitations De
[2019-10-16 19:30] VITALS: BP 139/59; PULSE 82; RESP 16; O2SAT 94
[2019-10-16 19:53] VITALS: BP 131/53; PULSE 80; RESP 17; TEMP 37.6; O2SAT 94
== END 2019-10-16 20:10 | disposition home or self-care (01) ==
PROVIDERS: Emergency Provider Family Medicine; PCP Emergency Medicine
DX: E86.0 Dehydration (principal); N30.00 Acute cystitis without hematuria; E11.65 Type 2 diabetes mellitus with hyperglycemia; Z79.4 Long term (current) use of insulin; I25.2 Old myocardial infarction; K21.9 Gastro-esophageal reflux disease without esophagitis; Z88.8 Allergy status to other drugs, medicaments and biological substances; Z79.899 Other long term (current) drug therapy; Z03.818 Encounter for observation for suspected exposure to other biological agents ruled out
CPT/HCPCS: 71045; 80053; 80305; 81001; 83605; 85025; 87040; 87086; 87088; 87186; 96365; 96375; 99284; J1956; U0003

== ENCOUNTER 2019-12-17 02:24 | Emergency (ER) | payer MEDICARE, OTHER, SELFPAY ==
[2019-12-17] VITALS (8 sets, daily range): BP systolic 140–155; BP diastolic 70–110; PULSE 47–63; RESP 14–18; TEMP 36.6; O2SAT 93–99; BMI 41.5
--- NOTE | 2019-12-17 02:30 | CT_ITS ---
Procedure: CT ABDOMEN PELVIS W CON Referring Doctor: Marcio Rodriguez Patient Age:69Y CLINICAL INDICATION: fall, luq pain left upper quadrant pain from fall 1 week ago. COMPARISON: CT ABDPELWO CT abdomen pelvis wo con from 12/05/2017 TECHNIQUE: Axial images obtained with sagittal and coronal reformats. All CT scans at the facility use one or more dose reduction, viz: automated exposure control, ma/kV adjustment per patient size (including targeted exams where dose is matched to indication, i.e. head), or iterative reconstruction technique. FINDINGS: Lower thorax: as described on today's CT chest report there is basilar atelectasis and scarring most evident at left base but a trace pleural fluid collection along associated with focal atelectasis at left posterior sulcus. ABDOMEN: Liver: No masses or biliary dilatation. Gallbladder: Nondistended. No radio opaque stones. Pancreas: No masses a fatty changes throughout the pancreas with no seen new findings Spleen:. Intact, upper normal size leAdrenals: unremarkable tract Kidneys/ureters: Unremarkable. No significant change since November 2017 PELVIS: Uterus appears normal size anteverted but no fluid cul-de-sac. No adnexal masses. Urinary bladder is unremarkable . GI tract Small/moderate hiatal hernia is again noted. Stomach otherwise of stable. Unremarkable. Small bowel. Normal caliber unremarkable. A few small air-fluid levels right lower quadrant not felt to be of significance but Large bowel. Moderate to generous stool at the right and transverse colon. Scattered diverticuli throughout the descending colon and sigmoid colon. Upper normal wall thickness and these latter areas most likely reflects lack of distension but no good evidence of acute diverticulitis but there are some diverticuli with upper normal wall thickness but these appear similar to the previous study with no convincing acute diverticulitis. Peritoneum: No abnormal fluid collections. No obvious inflammatory changes. No free air. Mild laxity at the left inguinal ring more so than right of with some fat bulging here but no significant bowel loops or other features. Lymph nodes: No enlarged lymph nodes apparent. Vasculature: No evidence of abdominal aortic aneurysm. No retroperitoneal hemorrhage evident. Bones: No acute fracture lumbar fracture but there evidence of old transverse process fractures on the right. mild scoliosis with degenerative changes L-spine. Degenerative disc space narrowing most evident at L4/5-L3/4 Degenerative hypertrophic degenerative facet changes most pronounced lower L-spine a particularly notable to the left at L5/S1. Soft tissues. There is some subtle edema which may reflect recent contusion at the left flank and soft tissues just inferior to the left breast laterally. Correlation required. Any bruising in this area. Axial 15-19 IMPRESSION: No acute intra-abdominal or pelvic findings. Subtle edematous changes likely reflecting minimal contusion at the superficial subcutaneous lateral soft tissues here at the upper abdomen and left flank.. (Axial image 15-19). Likely reflecting minimal localized contusion. No underlying acute rib fracture in this region. Colonic diverticulosis most evident at the sigmoid and left colon. Upper normal thickening and some of the diverticula noted appear to be stable with no good evidence of acute diverticulitis Hiatal hernia Dictated by: Willie Kirkpatrick MD 12/17/2019 11:17 Willie Kirkpatrick MD in [facility] 12/17/2019 11:17
--- NOTE | 2019-12-17 02:30 | CT_ITS ---
PROCEDURE: CT HEAD/BRAIN WO CON Referring Doctor: Marcio Rodriguez Patient Age:69Y CLINICAL INDICATION: fall, luq pain of fell tonight with lacerations and contusion to the back of head COMPARISON: CT CT HEAD/BRAIN WO CON from 09/15/2019 TECHNIQUE: Routine axial images were obtained. No IV contrast utilized All CT scans at the facility use one or more dose reduction, viz: automated exposure control, ma/kV adjustment per patient size (including targeted exams where dose is matched to indication, i.e. head), or iterative reconstruction technique. FINDINGS: No acute intracranial findings. No significant change since previous exam September [address] The Prominent chronic small vessel ischemic gliotic white matter changes again observed, most notable periventricular regions as seen before. Overall no significant change since September 2019 CT head. mild diffuse cerebral atrophy and central atrophy result in slight enlarging lateral ventricles. Lateral ventricles and basal cisterns otherwise appear clear and unremarkable otherwise. There is a small old focal area of atrophy at the right occipital lobe reflecting old injury or infarct,-this too is unchanged since prior study. No subdural nor extra-axial collection.. Posterior fossa appears stable in satisfactory. No mass lesion or mass effect Skull intact- . Nomastoid effusions. Mastoid air cells are well developed and clear. Middle ear clear. IAC's symmetric. Nosinus air-fluid level. Mild mucosal thickening anterior ethmoid air cells noted of. Otherwise visualized paranasal sinuses appear clear. Mild wall thickening at the posterior right maxillary sinus again noted reflecting some chronic changes here IMPRESSION: No acute intracranial findings No change since September 2019 CT head. .. Prominent chronic small vessel deep white-matter ischemic gliotic changes again noted Dictated by: Willie Kirkpatrick MD 12/17/2019 11:24 Willie Kirkpatrick MD in [facility] 12/17/2019 11:24
--- NOTE | 2019-12-17 02:30 | XR_ITS ---
PROCEDURE: XR CHEST PORTABLE Referring Doctor: Marcio Rodriguez Patient Age:69Y CLINICAL HISTORY: fall left lower anterior rib pain generally beneath breast fell 1 week ago COMPARISON: CT CT ANGIO CHEST from 12/17/2019 FINDINGS: The lungs are well expanded and clear with no acute cardiopulmonary findings further may be some very minor atelectasis at the medial left base. A CT study from today does reveal a subtle fracture at the anterior left 8th rib end which appears acute on further review . Old longstanding fracture of the posterior right 6 rib which is vaguely seen on today's plain film study. The heart is mildly enlarged.. Small hiatal hernia suggested retrocardiac region. Lucie and mediastinal structures satisfactory. No pleural effusion but no pneumothorax. IMPRESSION: No acute cardiopulmonary findings. Minimal scarring with minimal atelectasis medial left base (The subtle anterior left 8th rib end fracture seen on today's CT chest is not apparent on plain film) Dictated by: Willie Kirkpatrick MD 12/17/2019 15:28 Willie Kirkpatrick MD in [facility] 12/17/2019 15:28
--- NOTE | 2019-12-17 02:30 | CT_ITS ---
PROCEDURE: CT CERVICAL SPINE WO CON Referring Doctor: Marcio Rodriguez Patient Age:69Y CLINICAL INDICATION: fall, luq pain fell. States she fell last week as well. Pain left chest beneath the left breast. Head and neck injury as well. Neck pain COMPARISON: CT CT HEAD/BRAIN WO CON from 09/15/2019 TECHNIQUE: No IV contrast. Helical axial images obtained with sagittal and coronal reformats. All CT scans at the facility use one or more dose reduction, viz: automated exposure control, ma/kV adjustment per patient size (including targeted exams where dose is matched to indication, i.e. head), or iterative reconstruction technique. FINDINGS: . Cervical spine with no fracture nor subluxation is evident. Normal prevertebral soft tissues. Facets, neural foramen and vertebral bodies intact and unremarkable. Normal C1/C2 relationships. Apices of lungs are clear with no acute findings. Cervical spine intact with acute fracture. No acute subluxation Of slight reversal of cervical curvature most likely positional and reflection of degenerative changes. Although can reflect muscle spasm or pain related to recent injury. A cervicocranial junction appears satisfactory by CT. . Normal C1-C2 relationships. Degenerative changes at C1-C2 with small degenerative cystic changes about the dens. Multilevel degenerative changes and cervical spondylosis. C4/5 degenerative disc space narrowing and degenerative listhesis. Approximately 2.4 mm anterior positioning of C4 on C5 with degenerative disc and prominent degenerative facet changes at this level, contributing to the listhesis.. Moderate foraminal narrowing bilaterally but C 5/6: Degenerative disc space narrowing with mild degenerative listhesis at this level as well. 2.2 mm anterior positioning C5 on C6 vertebra but of prominent degenerative facet changes most evident on right. Mild foraminal narrowing bilaterally Suspect small central disc protrusion. c6/7 marked degenerative disc space narrowing of scant anterior degenerative listhesis facet hypertrophy arthropathy most pronounced on right C7/T1 disc intact T1/T2 disc intact. . There is mild levoscoliosis of through C-spine from this C4 through C7 segment Apices of lungs are clear. Motion artifact most likely accounts for appearance towards hyoid region.. IMPRESSION: No significant acute findings at the C-spine. No acute fracture or acute subluxation Prominent multilevel degenerative changes and cervical spondylosis most evident C4/5,, C5/6 and C6/7. Degenerative listhesis most notable C4/5-and C5/6. Prominent degenerative disc and facet features also at C6/7 level. These all appear longstanding. Dictated by: Willie Kirkpatrick MD 12/17/2019 20:40 Willie Kirkpatrick MD in [facility] 12/17/2019 20:40
--- NOTE | 2019-12-17 02:30 | XR_ITS ---
PROCEDURE: XR PELVIS 1-2V Referring Doctor: Marcio Rodriguez Patient Age:69Y CLINICAL INDICATION: fall Fall with multiple injuries COMPARISON: CT CT ABDOMEN PELVIS W CON from 12/17/2019 TECHNIQUE: XR Pelvis AP View FINDINGS: AP osseous pelvis radiograph Osseous pelvis appears intact with no fracture evident. AP view of hips appears satisfactory stable unremarkable with hip joint spaces well maintained bilateral. Sacrum, SI joints, iliac bone, superior and inferior ramus intact. There is contrast within partially included pelvicaliceal systems bilaterally from preceding CT studies. No obstructive uropathy in the bladder outline appears satisfactory. The osseous pelvis with moderate mineralization and no significant change since 2018 no significant degenerative change. No lytic or blastic change. The SI joints have an unremarkable appearance. . degenerative changes along with facet hypertrophy lower L-spine incidentally noted IMPRESSION: Osseous pelvis intact with no acute findings. Dictated by: Willie Kirkpatrick MD 12/17/2019 21:22 Willie Kirkpatrick MD in [facility] 12/17/2019 21:22
--- NOTE | 2019-12-17 02:36 | CT_ITS ---
PROCEDURE: CT ANGIO CHEST 3D volume rendering with shading included in addition to the CT a processing Referring Doctor: Marcio Rodriguez Patient Age:69Y CLINCIAL INDICATION: fall Patient fell tonight with lower left anterior rib pain fall about 1 week ago as well. Nonsmoker. COMPARISON: CR RIBSRT XR ribs RT 2V from 03/24/[address] ABDOMEN PELVIS W CON from 12/17/2019 CR XR CHEST PORTABLE from 12/17/2019 TECHNIQUE: IV Contrast: 70ML OPTIRAY 350 Helical axial images obtained with thick volume MIP sagittal and coronal reformats. Along with thickened axial images on independent CT workstation.. Also in addition 3D volume rendering images with shading performed on independent workstation evaluate chest wall/ribs A all CT scans at the facility use one or more dose reduction, viz: automated exposure control, ma/kV adjustment per patient size (including targeted exams where dose is matched to indication, i.e. head), or iterative reconstruction technique. FINDINGS: PULMONARY ARTERIES: No pulmonary embolus evident. The excellent visualization of pulmonary arteries Would note generous caliber of the right main pulmonary artery measures up to 2 point 7 cm diameter. The nonspecific but can be reflection of developing pulmonary hypertension. AORTA: No acute finding. No thoracic aortic aneurysm or dissection evident LUNGS: . linear scarring along with linear atelectasis towards left lung base left lung base/left lower lobe. Only minor linear scarring at the right lower lobe and right mid lung Also trace scant left pleural effusion associated with atelectasis at the posterior sulcus sulcus left lower lobe. No lung mass or consolidation. HEART:. Mildly enlarged.. No significant pericardial effusion. MEDIASTINAL AND HILAR STRUCTURES: No mediastinal or hilar mass evident. No dominant adenopathy A generous of wall thickness of esophagus throughout. Any history of reflux or esophageal symptoms? This may warrant follow-up or further investigation. BONY STRUCTURES: . dextroscoliosis of the thoracic spine are noted. No compression fractures spine. Mild degenerative disc changes at the mid and lower T-spine but mild facet arthropathy lower most T-spine levels Left chest-minimal acute appearing fracture at anterior left 8th rib end.. Right chest: Recent appearing fracture of the posterior lateral 9th rib. A however this may not be acute. Correlation required. Just anterior to this at 9th rib is a very old healed fracture of the 9th rib with minimal residual deformity. There is also no old appearing fracture at the posterior 6th rib. As was seen on old rib series from 2019 LYMPH NODES: No enlarged lymph nodes evident. UPPER ABDOMEN: Sliding hiatal hernia noted IMPRESSION: No evidence of acute pulmonary embolism. Aorta appears satisfactory Acute Fracture, Anterior Left 8th Rib end. : Minor bruising and contusion subcutaneous adipose .-beneath the left breast overlying the lower lower left chest and upper most abdomen Recent appearing fracture of the posterior lateral 9th rib-this appears recent but may not be acute. Correlation required . Old clearly remote healed fractures, far the lateral 9th rib and posterior 6 rib . Lungs: No pneumothorax. No pneumonia. Scant trace left pleural effusion with associated atelectasis posterior sulcus on left Linear scarring and atelectasis at lung bases most pronounced at the left lung base. . Other observations. . Small sliding hiatal hernia . Upper normal wall thickness throughout esophagus noted. Warrants correlation Dictated by: Willie Kirkpatrick MD 12/17/2019 15:41 Willie Kirkpatrick MD in [facility] 12/17/2019 15:41
[2019-12-17 02:40] LABS: Basophils # 0.1 K/mm3 (0-0.2); Basophils % 0.6 % (0.1-2.0); Eosinophils # 0.3 K/mm3 (0.0-0.4); Eosinophils % 3.6 % (0.1-12.0); Hematocrit 39.4 % (37.0-47.0); Hemoglobin 12.8 g/dL (12.2-16.2); Lymphocytes # 2.3 K/mm3 (0.7-4.5); Mean Corpuscular HGB Conc 32.4 g/dL (31.8-35.4); Mean Corpuscular Hemoglobin 28.5 pg (27.0-31.2); Mean Platelet Volume 8.7 fl (7.4-10.4); Monocytes # 0.5 K/mm3 (0.1-1.0); Monocytes % 5.7 % (1.7-9.3); Neutrophils # 5.1 K/mm3 (1.8-7.8); Neutrophils % 62.1 % (37.0-80.0); Platelet Count 129 K/mm3 (142-424); Red Blood Count 4.48 M/mm3 (4.20-5.40); Red Cell Distribution Width 14.6 % (11.5-17.5); White Blood Count 8.3 K/mm3 (4.8-10.8)
[2019-12-17 02:45] LABS: Alanine Aminotransferase 14 U/L (12-78); Albumin/Globulin Ratio 1.2 (1.1-1.8); Alkaline Phosphatase 196 U/L (38-126); Anion Gap 10.9 mEq/L (5-15); Aspartate Amino Transferase 23 U/L (14-36); Bilirubin,Total 0.4 mg/dl (0.2-1.3); Blood Urea Nitrogen 16 mg/dl (7-17); Calcium 9.7 mg/dl (8.4-10.2); Carbon Dioxide 30 mmol/L (22.0-30.0); Chloride 107 mmol/L (98-107); Creatinine Clearance Estimated 37 mL/min (50-200); Estimated Glomerular Filt Rate 41 ml/min (>60); GFR (African American) 49 ML/MIN (>60); Globulin 3.4 g/dL (1.3-3.2); Glucose 113 mg/dl (74-100); Potassium 3.9 mmoL/L (3.5-5.1); Sodium 144 mmol/L (136-145); Total Protein,Serum 7.4 g/dl (6.3-8.2)
--- NOTE | 2019-12-17 04:40 | HMH.EDFALL ---
ED Disposition Clinical Impression: Thrombocytopenia Contusion of rib on left side Qualifiers: Encounter type: initial encounter Qualified Code(s): S20.212A - Contusion of left front wall of thorax, initial encounter Fracture of rib of right side Qualifiers: Encounter type: subsequent encounter Rib fracture type: multiple ribs Fracture type: closed Fracture healing: with routine healing Qualified Code(s): S22.41XD - Multiple fractures of ribs, right side, subsequent encounter for fracture with routine healing CKD (chronic kidney disease) stage 3, GFR 30-59 ml/min Qualifiers: Chronic kidney disease stage 3 subtype: unspecified whether 3a or 3b Qualified Code(s): N18.30 - Chronic kidney disease, stage 3 unspecified Obesity Qualifiers: Obesity type: due to excess calories Obesity classification: adult class 3 (BMI >= 40) Serious obesity comorbidity presence: with serious comorbidity Body mass index: BMI 40.0-44.9 Qualified Code(s): E66.01 - Morbid (severe) obesity due to excess calories; Z68.41 - Body mass index [BMI]40.0-44.9, adult Scalp laceration Qualifiers: Encounter type: initial encounter Qualified Code(s): S01.01XA - Laceration without foreign body of scalp, initial encounter Fall Qualifiers: Encounter type: initial encounter Qualified Code(s): W19.XXXA - Unspecified fall, initial encounter Disposition: Home, Self-Care Condition on Discharge: Fair Instructions: How to Prevent Falls Additional Instructions: lin out 10-12 days Referrals: Marcio Rodriguez MD [Primary Care Provider] - - Critical Care Critical Care Time: No Attestation: On 12/17/19, the high probability of a clinically significant, sudden or life threatening deterioration of the following system(s) required my full and direct attention, intervention and personal management. The time I documented below is in addition to time spent performing reported procedures but includes the following listed in this critical care notation. Medical Decision Making - Medical Records Medical records reviewed: Yes: I reviewed the patient's medical records. - Kristopher Inquiry Pt receiving controlled substance: No Vital Signs: 12/17/19 02:20 12/17/19 02:57 12/17/19 03:30 Temperature 97.8 F Temperature Source Oral Pulse Rate [Right Brachial] 50 L 49 L 52 L Respiratory Rate 14 18 18 Blood Pressure [Right Arm] 154/72 H 144/72 H 152/70 H Blood Pressure Mean [Right Arm] 99 96 97 Blood Pressure Source [Right Arm] Automatic Cuff Blood Pressure Position [Right Arm] Sitting 02 Sat by Pulse Oximetry 95 99 99 Oxygen Delivery Method Room Air Room Air 12/17/19 03:55 12/17/19 04:42 12/17/19 05:20 Temperature Temperature Source Pulse Rate [Right Brachial] 47 L 50 L 52 L Respiratory Rate 18 18 16 Blood Pressure [Right Arm] 154/80 H 144/78 H 140/110 H Blood Pressure Mean [Right Arm] 104 100 120 Blood Pressure Source [Right Arm] Blood Pressure Position [Right Arm] Sitting 02 Sat by Pulse Oximetry 99 98 93 L Oxygen Delivery Method Room Air Room Air Room Air - Lab Data Lab results reviewed: Yes: I reviewed the patient's lab results. Lab Results 12/17/19 02:25: WBC 8.3, RBC 4.48, Hgb 12.8, Hct 39.4, MCV 88.0, MCH 28.5, MCHC 32.4, RDW 14.6, Plt Count 129 L, MPV 8.7, Neut % (Auto) 62.1, Lymph % (Auto) 28.0, [place] % (Auto) 5.7, Eos % (Auto) 3.6, Baso % (Auto) 0.6, Neut # (Auto) 5.1, Lymph # (Auto) 2.3, [place] # (Auto) 0.5, Eos # (Auto) 0.3, Baso # (Auto) 0.1 12/17/19 02:25: Sodium 144, Potassium 3.9, Chloride 107, Carbon Dioxide 30, Anion Gap 10.9, BUN 16, Creatinine 1.30 H, Estimated Creat Clear 37, Estimated GFR 41 L, Est GFR ( Amer) 49 L, Glucose 113 H, Calcium 9.7, Total Bilirubin 0.4, AST 23, ALT 14, Alkaline Phosphatase 196 H, Total Protein 7.4, Albumin 4.0, Globulin 3.4 H, Albumin/Globulin Ratio 1.2 Result diagrams: 12/17/19 02:25 12/17/19 02:25 Orders (Tests/Meds): ED MEDICATIONS Generic Name Dose Route Start Las
--- NOTE | 2019-12-17 05:58 | PC.NURSE ---
Contacted [facility]nor Go[facility] at this time for ride
--- NOTE | 2019-12-17 06:49 | PC.NURSE ---
Contacted Maynor Goins again about pts ride. They reported first shift just got there and someone was on the way.
== END 2019-12-17 07:06 | disposition home or self-care (01) ==
PROVIDERS: Emergency Provider Emergency Medicine; PCP Emergency Medicine
DX: S01.01XA Laceration without foreign body of scalp, initial encounter (principal); S22.42XA Multiple fractures of ribs, left side, initial encounter for closed fracture; W01.0XXA Fall on same level from slipping, tripping and stumbling without subsequent striking against object, initial encounter; Y92.199 Unspecified place in other specified residential institution as the place of occurrence of the external cause; E66.01 Morbid (severe) obesity due to excess calories; Z68.41 Body mass index [BMI] 40.0-44.9, adult; Z23 Encounter for immunization; I25.2 Old myocardial infarction; E11.9 Type 2 diabetes mellitus without complications; K21.9 Gastro-esophageal reflux disease without esophagitis; F41.8 Other specified anxiety disorders; N18.30 Chronic kidney disease, stage 3 unspecified; Z88.8 Allergy status to other drugs, medicaments and biological substances; Z79.899 Other long term (current) drug therapy
CPT/HCPCS: 12001; 70450; 71045; 71275; 72125; 72170; 74177; 80053; 85025; 90715; 96365; 96372; 96375; 99283; Q9967

== ENCOUNTER → 2020-02-20 10:02 | Outpatient (CLI) | payer MEDICARE, OTHER, SELFPAY ==
--- NOTE | 2020-02-20 | CA_ITS ---
APPROVED REPORT EXAM: Comprehensive 2D, Doppler, and color-flow Echocardiogram Pharmaceutical Salesperson: Analy Coker RT(R) Ht: 5 ft 8 in Wt: 232lbs BSA: 2.18 BP: 140/110 mmHg Indications: HTN, hyperlipidemia, CHF, DM, hx UT, GERD, obesity 2D Dimensions LVOT 1.92 cm (M/F) 1.5-2.5 M-Mode Dimensions RVDd 2.07 cm (0.9-2.6) LA Diam 3.71 cm (1.9-4.0) LVDd 5.66 cm (3.5-5.7) Ao Diam 2.56 cm (2.0-3.7) LVDs 3.64 cm (3.5-5.7) IVSd 1.01 cm (0.6-1.1) PWd 0.93 cm (0.6-1.1) EF (Teich) 64.50% FS 35.70% EDV (Teich) 157.50 mL ESV (Teich) 55.90 mL LV Diastology E Decel Time 340.00 (160-240 msec) E/A Ratio 0.7 MED E' 5.00 (< 7 cm/sec) E'/MED E' Ratio 16.22 (>14) LAT E' 6.10 (<10 cm/sec) E/LAT E' Ratio 13.30 (>14) Mitral Valve MV E Max Des. 81.00 (40-130 cm/s) MV A Velocity 109.00 (40-130 cm/s) E/A Ratio 0.74 MV Decel. Time 340.00 (160-240 ms) MV PHT 100.00 ms Tricuspid Valve TR P. Velocity 291.00 cm/s RAP Estimate 15.00 mmHg RVSP 48.90 mmHg Left Ventricle Left atrium is mildly enlarged, left ventricle is normal size, moderate concentric left ventricular hypertrophy, visually estimated ejection fraction 55% with no regional wall motion abnormality, grade 1 diastolic dysfunction seen without tissue Doppler evidence of raise left atrial pressure. Right Ventricle Right atrium and right ventricular normal size and contractility. Aortic Valve Aortic valve is thickened and calcified leaflet continue to display good mobility, there is no aortic stenosis. There is no significant aortic insufficiency. Mitral Valve Mitral valve leaflets are minimally thickened and calcified, the mitral inflow pattern is not suggestive of any significant mitral inflow obstruction, there is mild mitral regurgitation. Tricuspid Valve Tricuspid valve grossly normal, there is mild tricuspid regurgitation, tricuspid regurgitation jet velocity is inadequate for calculation of the right ventricular systolic pressure. Pulmonic Valve Pulmonic valve is poorly visualized. Great Vessels Aortic root is normal size. Pericardium No significant pericardial effusion noted. Conclusion 1. Mildly enlarged left atrium, normal left ventricular size, moderate concentric left ventricular hypertrophy, visually estimated ejection fraction 55% with no regional wall motion abnormality, grade 1 diastolic dysfunction seen without tissue Doppler evidence of raise left atrial pressure. 2. Thickened and calcified aortic valve without aortic stenosis or aortic insufficiency. 3. Mild mitral and tricuspid regurgitation. 4. No significant pericardial effusion noted. Electronically signed by : Pineda Thomas, 02/21/2020 06:18:16
== END ==
PROVIDERS: PCP Emergency Medicine; Visit Provider Emergency Medicine
DX: I10 Essential (primary) hypertension (principal); I27.20 Pulmonary hypertension, unspecified
CPT/HCPCS: 93306

== ENCOUNTER 2020-05-13 14:40 | Emergency (ER) | payer MEDICARE, OTHER, SELFPAY ==
[2020-05-13 14:40] VITALS: BP 147/83; PULSE 55; RESP 20; TEMP 36.5; O2SAT 97; BMI 34.0
[2020-05-13 15:10] VITALS: BP 147/65; PULSE 57; RESP 18; O2SAT 97
--- NOTE | 2020-05-13 15:25 | CT_ITS ---
PROCEDURE: CT CERVICAL SPINE WO CON CLINICAL INDICATION: fall Posttraumatic pain Neck injury with pain, contusion/abrasion or hematoma, cervical sprain/strain the COMPARISON: CT CT CERVICAL SPINE WO CON from 12/17/2019 TECHNIQUE: Axial images obtained with sagittal and coronal reformats. All CT scans at the facility use one or more dose reduction, viz: automated exposure control, ma/kV adjustment per patient size (including targeted exams where dose is matched to indication, i.e. head), or iterative reconstruction technique. Axial spiral CT scanning performed of the cervical spine beginning at the base of the skull and continuing to the upper T-spine. 3-D multiplanar reconstruction with 3-D manipulation of volumetric data set in image rendering was completed by the radiologist and/or technologist with the supervision of the radiologist on independent workstation. FINDINGS: No acute fracture or dislocation. C2-C3: Unremarkable. C3-C4: Mild degenerative disc disease with 2 mm anterolisthesis of C3. C4-C5: 3 mm anterolisthesis of C4 with degenerative disc disease and bilateral foraminal narrowing. C5-C6: Degenerative disc disease with right foraminal narrowing. C6-C7: Degenerative disc disease with bilateral foraminal narrowing. C7-T1 degenerative disc disease. Atelectatic or fibrotic change right apex. IMPRESSION: Cervical spondylosis. No acute finding. Dictated by: Manan Haro MD 05/14/2020 05:58 Manan Haro MD in [place] 05/14/2020 05:58
--- NOTE | 2020-05-13 15:25 | XR_ITS ---
PROCEDURE: XR FOREARM RT 2V CLINICAL INDICATION: trauma Injury with pain COMPARISON: No exams were available for comparison FINDINGS: No fracture or dislocation. No lytic or blastic change. There is normal mineralization. The joint spaces are well-preserved. No significant degenerative/arthritic changes. No erosive changes evident. Other findings:Ulnar minus variant IMPRESSION: No acute findings. Dictated by: Manan Haro MD 05/14/2020 05:47 Manan Haro MD in [facility] 05/14/2020 05:47
--- NOTE | 2020-05-13 15:25 | CT_ITS ---
PROCEDURE: CT HEAD/BRAIN WO CON CLINICAL INDICATION: fall Head injury with headache/pain, contusion, abrasion or hematoma. Laceration to the forehead COMPARISON: CT CT HEAD/BRAIN WO CON from 12/17/2019 TECHNIQUE: Axial images obtained. All CT scans at the facility use one or more dose reduction, viz: automated exposure control, ma/kV adjustment per patient size (including targeted exams where dose is matched to indication, i.e. head), or iterative reconstruction technique. FINDINGS: No midline shift, mass effect, intracranial hemorrhage, hydrocephalus, or extra-axial fluid collection is evident. There is generalized atrophy with hypoattenuation of the periventricular white matter consistent with microangiopathic changes.. There is mild soft tissue swelling in the right frontal scalp region the calvarium has an unremarkable appearance. No mastoid effusion. No sinus air-fluid level. IMPRESSION: No acute intracranial finding Right frontal scalp hematoma Dictated by: Manan Haro MD 05/14/2020 05:53 Manan Haro MD in [facility] 05/14/2020 05:53
[2020-05-13 15:44] VITALS: BP 144/81; PULSE 54; RESP 18; O2SAT 97
--- NOTE | 2020-05-13 17:13 | HMH.EDFALL ---
ED Disposition Clinical Impression: Concussion without loss of consciousness Qualifiers: Encounter type: initial encounter Qualified Code(s): S06.0X0A - Concussion without loss of consciousness, initial encounter Disposition: Home, Self-Care Condition on Discharge: Good Instructions: How to Prevent Falls Referrals: Marcio Rodriguez MD [Primary Care Provider] - - Critical Care Critical Care Time: No Attestation: On 05/13/20, the high probability of a clinically significant, sudden or life threatening deterioration of the following system(s) required my full and direct attention, intervention and personal management. The time I documented below is in addition to time spent performing reported procedures but includes the following listed in this critical care notation. Medical Decision Making - Medical Records Medical records reviewed: Yes: I reviewed the patient's medical records. - Kristopher Inquiry Pt receiving controlled substance: No Vital Signs: 05/13/20 14:40 05/13/20 15:10 05/13/20 15:44 Temperature 97.7 F Temperature Source Oral Pulse Rate [Left Radial] 55 L 57 L 54 L Respiratory Rate 20 18 18 Blood Pressure [Right Arm] 147/83 H 147/65 H 144/81 H Blood Pressure Mean [Right Arm] 104 92 102 Blood Pressure Source [Right Arm] Automatic Cuff Blood Pressure Position [Right Arm] Sitting 02 Sat by Pulse Oximetry 97 97 97 Oxygen Delivery Method Room Air Orders (Tests/Meds): ORDERS Category Date Time Status CT cervical spine wo con Stat Cat Scan 05/13/20 15:[address] head/brain wo con Stat Cat Scan 05/13/20 15:25 Taken Forearm XR right 2 views [XR forearm RT 2V] Stat Exams 05/13/20 15:25 Taken - Radiology Data #1 Image(s): Forearm Image Reviewed: Yes I reviewed the patient's radiology results, Yes I reviewed the patient's radiology image Preliminary Findings: Normal/NAD, No Fracture Seen - CT Data CT Scan: Head, C-Spine Time Received: 17:[address] Reviewed: Yes: I have reviewed the patient's CT results, I have viewed the radiologist's interpretation Preliminary Findings: Normal/NAD, No Fracture Seen - Reevaluation(s) Time: 17:45 Reevaluation #1: On reevaluation, the patient is feeling much better. CT was unremarkable. Repeat neurologic exam did not show any deficits. Patient needs to follow-up with PCP in 24 hours. Given strict return precautions. Verbalized understanding. Medical Decision Narrative: 69-year-old female presented to the emergency department after an axonal fall. Patient has evidence of head trauma. Patient meets imaging criteria for head and cervical spine. Work-up initiated. Fall HPI - General Chief Complaint: Fall Stated Complaint: fall Time Seen by Provider: 05/13/20 14:45 Mode of Arrival: EMS Limitations: No Limitations Description of Symptoms (Recalled from ER Triage Doc. by RN): Pt states that he legs just would not move and she fell into her table. Small laceration noted on forhead. Denies any other injuries at this time. Denies any LOC - History of Present Illness HPI Narrative: This is a 69-year-old female presented to the emergency department after an accidental fall. Patient states that she was using her walker to get around her bed when she accidentally tripped. She fell forward and hit her head on her inside table. She has a small abrasion to the right frontal area. Had some minimal bleeding. There was no loss of consciousness. She is complaining of some headache and neck pain. She denies any change in vision or focal weakness. Denies any chest pain or shortness of breath. No abdominal pain or vomiting. No diarrhea. No fevers or chills. - Related Data Home Medications Medication Instructions Recorded Confirmed atorvastatin 20 mg tablet 20 mg PO HS 02/17/18 09/29/19 sertraline 100 mg tablet 150 mg PO DAILY 02/17/18 09/29/19 ARIPiprazole [Abilify 10mg 10 mg PO DAILY 09/29/19 09/29/19 Tablet] Aspirin [Aspiri
[2020-05-13 18:11] VITALS: BP 140/82; PULSE 52; RESP 16; TEMP 36.6; O2SAT 98
== END 2020-05-13 18:13 | disposition home or self-care (01) ==
PROVIDERS: Emergency Provider Emergency Medicine; PCP Emergency Medicine
DX: S06.0X0A Concussion without loss of consciousness, initial encounter (principal); W18.09XA Striking against other object with subsequent fall, initial encounter; Y92.019 Unspecified place in single-family (private) house as the place of occurrence of the external cause; I50.9 Heart failure, unspecified; K21.9 Gastro-esophageal reflux disease without esophagitis; F41.9 Anxiety disorder, unspecified; E11.9 Type 2 diabetes mellitus without complications; I25.2 Old myocardial infarction; Z79.899 Other long term (current) drug therapy
CPT/HCPCS: 70450; 72125; 73090; 99283

== ENCOUNTER 2020-05-17 09:12 | Observation (INO) | payer MEDICARE, OTHER, SELFPAY ==
[2020-05-17] VITALS (10 sets, daily range): BP systolic 102–135; BP diastolic 46–74; PULSE 55–70; RESP 16–20; TEMP 36.6–36.8; O2SAT 16–100; BMI 34.7; BMI 31.1
--- NOTE | 2020-05-17 09:30 | HMH.EDGENADL ---
ED Disposition Clinical Impression: Multiple falls, Fracture of proximal phalanx of digit of hand, Gait instability, JACK (acute kidney injury) Skin tear of forearm without complication Qualifiers: Encounter type: initial encounter Laterality: right Qualified Code(s): S51.811A - Laceration without foreign body of right forearm, initial encounter Knee contusion Qualifiers: Encounter type: initial encounter Laterality: right Qualified Code(s): S80.01XA - Contusion of right knee, initial encounter Contusion of left hip Qualifiers: Encounter type: initial encounter Qualified Code(s): S70.02XA - Contusion of left hip, initial encounter Disposition: Admitted as Observation Condition on Discharge: [facility] - Critical Care Critical Care Time: No Attestation: On 05/17/20, the high probability of a clinically significant, sudden or life threatening deterioration of the following system(s) required my full and direct attention, intervention and personal management. The time I documented below is in addition to time spent performing reported procedures but includes the following listed in this critical care notation. Medical Decision Making - Kristopher Inquiry Pt receiving controlled substance: No Vital Signs: 05/17/20 09:25 05/17/20 09:39 05/17/20 10:30 Temperature 98 F Temperature Source Oral Pulse Rate [Radial] 70 66 68 Respiratory Rate 16 18 20 Blood Pressure [Right Arm] 111/46 L 102/51 L 114/64 Blood Pressure Mean [Right Arm] 67 68 80 Blood Pressure Position [Right Arm] Sitting 02 Sat by Pulse Oximetry 98 94 L 98 Oxygen Delivery Method Room Air 05/17/20 11:00 05/17/20 11:30 05/17/20 12:00 Temperature Temperature Source Pulse Rate [Radial] 70 59 L 65 Respiratory Rate 18 18 16 Blood Pressure [Right Arm] 117/67 125/55 L 106/46 L Blood Pressure Mean [Right Arm] 83 78 66 Blood Pressure Position [Right Arm] 02 Sat by Pulse Oximetry 98 98 100 Oxygen Delivery Method 05/17/20 12:45 Temperature Temperature Source Pulse Rate [Radial] 65 Respiratory Rate 18 Blood Pressure [Right Arm] 114/50 L Blood Pressure Mean [Right Arm] 71 Blood Pressure Position [Right Arm] 02 Sat by Pulse Oximetry 95 Oxygen Delivery Method - Lab Data Lab Results 05/17/20 10:00: Urine Color Yellow, Urine Appearance Clear, Urine pH 6.0, Ur Specific [place] 1.025, Urine Protein Negative, Urine Glucose (UA) Negative, Urine Ketones Negative, Urine Blood Negative, Urine Nitrate Negative, Urine Bilirubin 1+ A, Urine Urobilinogen 0.2, Ur Leukocyte Esterase Negative, Urine RBC None, Urine WBC 5-10, Ur Squamous Epith Cells 5-10, Urine Bacteria None 05/17/20 10:50: WBC 7.6, RBC 4.28, Hgb 12.1 L, Hct 37.3, MCV 87.2, MCH 28.3, MCHC 32.5, RDW 15.1, Plt Count 130 L, MPV 9.2, Neut % (Auto) 76.9, Lymph % (Auto) 17.0, [place] % (Auto) 4.7, Eos % (Auto) 1.1, Baso % (Auto) 0.3, Neut # (Auto) 5.9, Lymph # (Auto) 1.3, [place] # (Auto) 0.4, Eos # (Auto) 0.1, Baso # (Auto) 0.0 05/17/20 10:50: Sodium 144, Potassium 4.7, Chloride 108 H, Carbon Dioxide 29, Anion Gap 11.7, BUN 32 H, Creatinine 1.80 H, Estimated Creat Clear 49, Estimated GFR 28 L, Est GFR ( Amer) 34 L, Glucose 86, Calcium 10.3 H, Total Bilirubin 0.8, AST 48 H, ALT 20, Alkaline Phosphatase 150 H, Troponin I 0.03, Total Protein 7.9, Albumin 4.4, Globulin 3.5 H, Albumin/Globulin Ratio 1.3 Result diagrams: 05/17/20 10:50 05/17/20 10:50 Orders (Tests/Meds): ED MEDICATIONS Generic Name Dose Route Start Last Admin Trade Name Freq PRN Reason Stop Dose Admin Acetaminophen 650 mg 05/17/20 13:49 Acetaminophen 325mg Tab PO 06/16/20 13:48 Q4HP PRN As Needed for Fever or Pain Amlodipine Besylate 2.5 mg 05/18/20 09:00 Amlodipine 2.5mg Tablet PO 06/17/20 08:59 DAILY LIZZETH Atorvastatin Calcium 20 mg 05/17/20 21:00 Atorvastatin 20mg Tablet PO 06/16/20 20:59 HS LIZZETH Clopidogrel Bisulfate 75 mg 05/18/20 09:00 Clopidogrel 75mg Tab PO 06/17/20 0
--- NOTE | 2020-05-17 09:35 | XR_ITS ---
PROCEDURE: XR HAND LT MIN 3V CLINICAL INDICATION: fall Pain COMPARISON: No exams were available for comparison FINDINGS: Minimally displaced fracture involves the proximal aspect of the proximal phalanx the 4th finger. The distal fracture fragment is slightly displaced laterally by 3 mm. There are osteoarthritic changes at the 1st metacarpal-carpal joint. IMPRESSION: Mildly displaced fracture proximal phalanx 4th digit Dictated by: Manan Haro MD 05/17/2020 10:44 Manan Haro MD in [place] 05/17/2020 10:44
--- NOTE | 2020-05-17 09:35 | CT_ITS ---
PROCEDURE: CT HEAD/BRAIN WO CON CLINICAL INDICATION: fall Head injury with headache/pain, contusion, abrasion or hematoma COMPARISON: CT CT HEAD/BRAIN WO CON from 05/13/2020 TECHNIQUE: Axial images obtained. All CT scans at the facility use one or more dose reduction, viz: automated exposure control, ma/kV adjustment per patient size (including targeted exams where dose is matched to indication, i.e. head), or iterative reconstruction technique. FINDINGS: No midline shift, mass effect, intracranial hemorrhage, hydrocephalus, or extra-axial fluid collection is evident. There is generalized atrophy with hypoattenuation of the periventricular white matter consistent with microangiopathic changes. The calvarium has an unremarkable appearance. No mastoid effusion. No sinus air-fluid level. IMPRESSION: No acute intracranial finding Dictated by: Manan Haro MD 05/17/2020 10:32 Manan Haro MD in [place] 05/17/2020 10:32
--- NOTE | 2020-05-17 09:36 | XR_ITS ---
PROCEDURE: XR KNEE RT 3V CLINICAL INDICATION: fall Pain COMPARISON: No exams were available for comparison FINDINGS: Osteoarthritic changes are present involving all 3 compartments with a small suprapatellar effusion. There is a faint lucency involving the proximal aspect of the fibula on the lateral view and may represent a nondisplaced fracture. Please correlate as the patient's area of pain and tenderness. Other findings:None. IMPRESSION: Possible nondisplaced fracture proximal fibula Dictated by: Manan Haro MD 05/17/2020 10:45 Manan Haro MD in [place] 05/17/2020 10:46
--- NOTE | 2020-05-17 09:38 | XR_ITS ---
PROCEDURE: XR HIP LT 2-3V W/PELVIS CLINICAL INDICATION: fall Injury with pain COMPARISON: CR XR PELVIS 1-2V from 12/17/2019 FINDINGS: No fracture or dislocation is evident. No significant degenerative change. No lytic or blastic change. Unremarkable soft tissues. IMPRESSION: No acute findings. Dictated by: Manan Haro MD 05/17/2020 10:49 Manan Haro MD in [place] 05/17/2020 10:49
--- NOTE | 2020-05-17 09:38 | XR_ITS ---
PROCEDURE: XR CHEST AP CLINICAL HISTORY: fall Posttraumatic pain COMPARISON: No exams were available for comparison FINDINGS: The cardiomediastinal silhouette and pulmonary vascularity are within normal limits. The lungs are clear without infiltrates, suspicious nodules, or pleural effusions. No acute bony abnormalities. IMPRESSION: No acute findings. Dictated by: Manan Haro MD 05/17/2020 10:50 Manan Haro MD in [place] 05/17/2020 10:50
--- NOTE | 2020-05-17 10:27 | ECG_ITS ---
APPROVED REPORT Exam: Resting ECG HR:60 bpm ECG Measurements Heart Rate 60 AXES SD 162 P 37 QRSd 72 QRS 33 QT 408 T 78 QTc 408 Conclusion Normal sinus rhythm Low voltage QRS Septal changes present since 09/2019 Abnormal ECG Electronically signed by : Rainer Asher, 05/18/2020 16:33:06
[2020-05-17 10:58] LABS: Basophils % 0.3 % (0.1-2.0); Eosinophils # 0.1 K/mm3 (0.0-0.4); Eosinophils % 1.1 % (0.1-12.0); Hematocrit 37.3 % (37.0-47.0); Hemoglobin 12.1 g/dL (12.2-16.2); Lymphocytes # 1.3 K/mm3 (0.7-4.5); Mean Corpuscular HGB Conc 32.5 g/dL (31.8-35.4); Mean Corpuscular Hemoglobin 28.3 pg (27.0-31.2); Mean Corpuscular Volume 87.2 fl (81-99); Mean Platelet Volume 9.2 fl (7.4-10.4); Monocytes # 0.4 K/mm3 (0.1-1.0); Monocytes % 4.7 % (1.7-9.3); Neutrophils # 5.9 K/mm3 (1.8-7.8); Neutrophils % 76.9 % (37.0-80.0); Platelet Count 130 K/mm3 (142-424); Red Blood Count 4.28 M/mm3 (4.20-5.40); Red Cell Distribution Width 15.1 % (11.5-17.5); White Blood Count 7.6 K/mm3 (4.8-10.8)
--- NOTE | 2020-05-17 11:01 | PC.NURSE ---
rt arm with skin tear noted area cleaned, adaptic dressing applied
[2020-05-17 11:06] LABS: Chloride 108 mmol/L (98-107); Potassium 4.7 mmoL/L (3.5-5.1); Sodium 144 mmol/L (136-145)
[2020-05-17 11:08] LABS: Blood Urea Nitrogen 32 mg/dl (7-17); Creatinine Clearance Estimated 49 mL/min (50-200); Estimated Glomerular Filt Rate 28 ml/min (>60); GFR (African American) 34 ML/MIN (>60)
[2020-05-17 11:09] LABS: Alanine Aminotransferase 20 U/L (12-78); Albumin Level 4.4 g/dl (3.5-5.0); Albumin/Globulin Ratio 1.3 (1.1-1.8); Alkaline Phosphatase 150 U/L (38-126); Anion Gap 11.7 mEq/L (5-15); Aspartate Amino Transferase 48 U/L (14-36); Bilirubin,Total 0.8 mg/dl (0.2-1.3); Calcium 10.3 mg/dl (8.4-10.2); Carbon Dioxide 29 mmol/L (22.0-30.0); Globulin 3.5 g/dL (1.3-3.2); Glucose 86 mg/dl (74-100); Total Protein,Serum 7.9 g/dl (6.3-8.2)
[2020-05-17 11:13] LABS: Microscopic, Urine URINE MICROSCOPIC (MICROSCOPIC)
[2020-05-17 11:15] LABS: Appearance,Urine CLEAR (Clear); Blood, Urine Negative (Negative); Color,Urine YELLOW (Yellow); Glucose,Urine (UA) Negative (Negative); Ketones,Urine Negative (Negative); Leukocyte Esterase,Urine Negative (Negative); Nitrate,Urine Negative (Negative); Protein,Urine Negative (Negative); Specific Gravity, Urine 1.025 (1.005-1.030); Urobilinogen,Urine 0.2 EU/dl (0.2)
[2020-05-17 11:17] LABS: Bilirubin,Urine 1+ (Negative)
[2020-05-17 11:21] LABS: Troponin I 0.03 ng/ml (0.00-0.034)
--- NOTE | 2020-05-17 11:55 | SW/DCPLANNER ---
Addendum entered by Lauren Edinburg 05/21/20 14:53: This patient will discharge to [facility] level of care. I have notified Mariana with [facility]. Addendum entered by Lauren Edinburg 05/21/20 09:47: [facility] has accepted this patient under Medicaid pending once medically stable for discharge. Patient is in surgery today but could discharge this afternoon pending no setbacks. COVID swab is negative from yesterday and has been faxed to [facility]. I will continue to follow up with and Mariana with [facility]. I have informed [facility] and that this patient has found placement elsewhere. Addendum entered by Lauren Edinburg 05/20/20 13:09: Patient is agreeable with plan of discharging to higher level of care. At this time patient information has been faxed to:[facility] and [facility]. I will continue to follow up with all facilities. Patient will have surgery tomorrow morning. Addendum entered by Lauren Edinburg 05/20/20 10:19: Katheryn with [facility] has denied this patient at this time: they can not meet her needs. I will speak with [facility] and [facility] regarding this patient and bed availability. Addendum entered by Lauren Edinburg 05/20/20 09:19: Updated patient information has been faxed to Katheryn at [facility]. I am currently waiting to hear back from Katheryn regarding this patient. Original Note: This patient currently resides at [facility]. has been contacted by Dr Rodriguez stating that patient will be admitted and more than likely need short term placement at a skilled facility at time of discharge. I have spoke with Katheryn at [facility] whom has beds available at this time. Patient information has been faxed to Katheryn and I will fax updates/evaluations once in computer. I have updated John at [facility].
--- NOTE | 2020-05-17 14:13 | P.CONPHA_ITS ---
[facility] VTE Monitoring - Patient Demographics Admission date: 05/17/20 Report Date: 05/17/20 Time: 14:13 Allergies/Adverse Reactions: Patient Allergies pentazocine [PENTAZOCINE] Allergy (Intermediate, Verified 09/28/19 23:00) CRAZY prochlorperazine [PROCHLORPERAZINE] Allergy (Intermediate, Verified 09/28/19 23:00) ITCHING lithium [LITHIUM] Allergy (Unknown, Verified 09/28/19 23:00) Height: 1.73 m Weight: 103.419 kg Patient Problems: Current Active Problems (Last Updated 03/21/18 @ 17:14 by Perez Lehman APRN) Acute kidney injury (Acute) Multiple falls (Acute) Skin tear of forearm without complication (Acute) Fracture of proximal phalanx of digit of hand (Acute) Knee contusion (Acute) Contusion of left hip (Acute) Gait instability (Acute) - VTE Risk Labs: VTE Related Lab Results Hgb 12.1 g/dL (12.2-16.2) L 05/17/20 10:50 Hct 37.3 % (37.0-47.0) 05/17/20 10:50 Plt Count 130 K/mm3 (142-424) L 05/17/20 10:50 BUN 32 mg/dl (7-17) H 05/17/20 10:50 Creatinine 1.80 mg/dl (0.52-1.04) H 05/17/20 10:50 Estimated Creat Clear 49 mL/min (50-200) 05/17/20 10:50 Was VTE Risk Assessment Performed: No Clinical Trial Participant: Yes - Prophylaxis VTE Prophylaxis Ordered?: Yes Types of VTE Prophylaxis: TEDS Knee High
--- NOTE | 2020-05-17 14:38 | PC.NURSE ---
report called to mega day
--- NOTE | 2020-05-17 15:57 | HMH.PTEV ---
Physical Therapy Evaluation Rehab PT IP Evaluation Start: 05/17/20 13:49 Freq: ONCE Status: Active Protocol: Document 05/17/20 15:52 PHORNE (Rec: 05/17/20 15:57 PHORNE [id number]) Subjective/History History History 69 yowf adm to [facility] with general weakness and hx of multiple falls over the past 2 days. She reports 4 falls since yesterday morning. She [facility] a [facility] and uses a walker for ambulation at baseline. Subjective Subjective Pt reports pain in her L hand and R knee this pm. Rehab PT IP Eval Objective Appearance Patient Behavior Appropriate Patient Orientation Person,Place,Time Difficulty following instructions none Speech Pattern Clear Ambulation Patient Able to Ambulate No Balance Ability to Arise Able, uses arms to help Sitting Balance Steady, safe Standing Balance Steady, wide stance Dynamic Sitting Balance Ability Good Dynamic Standing Balance Ability Poor Transfers Bed Transfer Ability Contact Guard/Hand Hold Chair Transfer Ability Minimal x 1 (25% assist) Sit to Stand Bed Transfer Ability Minimal x 1 (25% assist) Sit to Stand Chair Transfer Ability Minimal x 1 (25% assist) ROM All Extremities PT ROM Status WFL Abnormal ROM Comment except L hand NT MMT All Extremities PT MMT WFL Abnormal MMT Grade except L hand NT Rehab PT IP prob,goals,plan Problems Date of Evaluation: 05/17/20 PT IP Problems Bed Mobility,Transfers,Gait Rehab Potential Rehab Potential Good Equipment Needs Assistive Devices Platform Walker Plan PT Intervention Plan Bed Mobility,Transfers,Gait, Therapeutic Exercise PT Plan Frequency BID Duration LOS Discharge Goals Bed Transfer Ability Contact Guard/Hand Hold Sit to Stand Chair Transfer Ability Contact Guard/Hand Hold Ambulation Assistive Device Platform Walker Ambulation Distance (feet) 15 Discharge Plan PT Discharge Plan Pt is currently most appropriate for rehab placement due to decreased safety, decreased balance, and general deconditioning. G -code Required No Eval Complexity Eval Charge Codes 00514 - Moderate Complex
--- NOTE | 2020-05-17 16:37 | PC.NURSE ---
SHE IS AOX4, ABLE TO MAKE NEEDS KNOWN TO STAFF, PT DID STATE THAT SHE WAS EXPERIENCING HALLUCINATIONS AND THAT SHE SAW CATS ON THE CEILING SHE DENIED AND AUDITORY INVOLVEMENT, SHE HAS EXTENSIVE BRUISING T/O UPPER AND LOWER EXTREMITIES AND A LARGE SKIN TEAR ON THE RIGHT FOREARM WHICH IS WRAPPED IN A KERLEX DRESSING THAT IS C/D/I. HER ABD IS SOFT ROUND AND NON-TENDER AND SHE DENIES N/V/D, PT DOES NOT HAVE AY TEETH AND HAS REQUESTED HER MEALS TO HAVE MEAT ON HER TRAY. SHE DID AMBULATE TO THE BED FROM THE WHEELCHAIR WHEN SHE ARRIVED TO FLOOR BUT TOLERATED POORLY R/T WEAKNESS IN HER LEGS AND FEELING DIZZY, PHYSICAL THERAPY DID COME TO THE FLOOR FOR CONSULT AND STATED THAT SHE SHOULD BE A X1 ASSIST STAND AND PIVOT TO BSC FOR ELIMINATION, LUNG SOUNDS ARE CLEAR TO AUSCULTATION, AND SHE DOES NOT REQUIRE O2 SUPPORT, NO COUGH NOTED, NO EDEMA NOTED, PT STATES THAT SHE HAD A CVA IN THE PAST. 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 PT DID STATE THAT SHE WAS A TYPE 2 DIABETIC SO THIS NURSE CONTACTED DR JOY SCREEN PRINTER WHO ORDERED FSBS ACHS AND LOW INTENSITY SLIDING SCALE.
--- NOTE | 2020-05-17 16:39 | HMH.ORTHOCON ---
*Admission Date: 05/17/20 *Reason for consult:: multiple falls, contusion R knee, L hand fracture *History of present illness: 69-year-old female resident of [facility] brought to the ER for evaluation after sustaining multiple falls recently. Her most recent fall was today but per report has fallen multiple times recently. She has a walker and was using it today when she fell. On admission she reported left hip pain, but currently does not experience this. She has some soreness in the right knee and right forearm in addition to the left hand. She did not hit her head today, but has on previous falls and has facial bruising. She has recently been diagnosed with a UTI and has been on antibiotics for 3 days. Denies chest pain, shortness of breath, cough, fever, vomiting or diarrhea. A fracture was noted to the left hand in the ER and an ulnar gutter splint placed. [facility] History I have reviewed the patient's past medical history: Yes Medical History: Reports:: Anxiety, Congestive Heart Failure, Diabetes Mellitus Type 2, Gastroesophageal Reflux Disease(GERD), Hyperlipidemia, Hypertension, Myocardial Infarction Denies:: Cancer, Diabetes Mellitus Type 1, MRSA *Have you ever received a pneumonia vaccine?: No *Have you received a flu vaccine this season?: Yes Other Medical History: Reports: Anemia, Arthritis Laterality Cases: Left: Arthroscopy Shoulder Other Surgeries: Yes: No Previous Surgery, Cardiac Catheterization Amputation: No Fractures: Yes - *Social History Last grade of school completed: High school graduate Smoking Status: Never smoker Alcohol Intake: never Alcohol Intake Frequency:: 0-2 drinks per day Substance Use Type: denies use *Occupational Status:: unemployed Housing: assisted living facility Household Members: other *Travel in the last 8 weeks: None - Psychiatric History Pschychiatric History:: Reports:: Anxiety Family Hx:: Cancer, Heart Attack, Hyperlipidemia, Hypertension Review of Systems - Review of Systems Review of systems:: pertinent systems reviewed and negative unless documented below - *Neurologic Reports frequent falls, Denies headache(s), Denies numbness, Denies weakness Meds Home Medications Medication Instructions Recorded Confirmed Type atorvastatin 20 mg tablet 20 mg PO HS 02/17/18 05/17/20 History sertraline 100 mg tablet 200 mg PO DAILY 02/17/18 05/17/20 History Calcium Carbonate/Vitamin D3 1 each PO BID 09/29/19 05/17/20 History [Calcium 600 + Vit D Tablet] Clopidogrel Bisulfate [Clopidogrel 75 mg PO DAILY 09/29/19 05/17/20 History 75mg Tab] Doxepin HCl [Sinequan 10mg capsule] 30 mg PO HS 09/29/19 05/17/20 History Insulin Glargine,Hum.rec.anlog 35 unit SQ HS 09/29/19 05/17/20 History [Basaglar Mikkiikpen U-100] Metformin HCl 500 mg PO DAILY 09/29/19 05/17/20 History Omeprazole [Omeprazole 40mg 40 mg PO DAILY 09/29/19 05/17/20 History Capsule] Oxybutynin Chloride [Oxybutynin 10 mg PO DAILY 09/29/19 05/17/20 History Chloride ER] lisinopriL [Lisinopril 5mg 5 mg PO DAILY 09/29/19 05/17/20 History Tablet] gabapentin 100 mg capsule 100 mg PO QID #120 cap 01/01/20 05/17/20 Rx ARIPiprazole [Aripiprazole 30mg 30 mg PO DAILY 05/17/20 05/17/20 History Tablet] Amlodipine Besylate [Norvasc 5mg 5 mg PO DAILY 05/17/20 05/17/20 History tablet] Aspirin [Aspirin 81mg chewable 81 mg PO DAILY 05/17/20 05/17/20 History tab] Trazodone HCl 100 mg PO HS 05/17/20 05/17/20 History buPROPion HCL [Wellbutrin XL] 150 mg PO DAILY 05/17/20 05/17/20 History Allergies Allergy/AdvReac Type Severity Reaction Status Date / Time pentazocine [PENTAZOCINE] Allergy Intermediate CRAZY Verified 09/28/19 23:00 prochlorperazine Allergy Intermediate ITCHING Verified 09/28/19 23:00 [PROCHLORPERAZINE] lithium [LITHIUM] Allergy Unknown Verified 09/28/19 23:00 Exam Vital signs and Labs for Last 24 Hours: Temp Pulse Resp BP Pulse Ox 97.9 F 61 18 110/56 L 96
[2020-05-17 17:14] LABS: POC Glucose,Bedside 109 (70-110)
--- NOTE | 2020-05-17 20:17 | HMH.HP ---
*Admission Date: 05/17/20 *Chief complaint: falls *History of present illness: this pt from local [facility] who has had multiple falls - pt with lt hand injury: to ed per squad pt resident [facility] sent for eval due to freg falls and c/o lt hip pain. pt seen 05/13 for falls and head injury, dx with uti. pt with multiple bruises noted, face, rt knee, yoon hands, yoon legs. skin tear to rt lower arm Arrives by ambulance from [facility]. States that she keeps falling. She most recently fell today, but has fallen multiple times recently. She says she gets to leaning to the left and falls over. She has a walker and was using it today when she fell. She says that she injured her left hip, right knee, and right forearm today. Her forearm injury is a skin tear. Right knee is bruised. Left hip is sore. She also has left hand pain, swelling, and bruising, from a previous fall a couple of days ago. States she did not hit her head today. She has hit her head on previous falls. States last tetanus immunization was a couple of years ago. She states she is currently being treated for UTI, has been on antibiotics for 3 days. Denies chest pain, shortness of breath, cough, fever, vomiting, diarrhea. pt was admitted for eval and treatment [facility] History I have reviewed the patient's past medical history: Yes Medical History: Reports:: Anxiety, Congestive Heart Failure, Diabetes Mellitus Type 2, Gastroesophageal Reflux Disease(GERD), Hyperlipidemia, Hypertension, Myocardial Infarction Denies:: Cancer, Diabetes Mellitus Type 1, MRSA *Have you ever received a pneumonia vaccine?: No *Have you received a flu vaccine this season?: Yes Other Medical History: Reports: Anemia, Arthritis Laterality Cases: Left: Arthroscopy Shoulder Other Surgeries: Yes: No Previous Surgery, Cardiac Catheterization Amputation: No Fractures: Yes - *Social History Last grade of school completed: High school graduate Smoking Status: Never smoker Alcohol Intake: never Alcohol Intake Frequency:: 0-2 drinks per day Substance Use Type: denies use *Occupational Status:: unemployed Housing: assisted living facility Household Members: other *Travel in the last 8 weeks: None - Psychiatric History Pschychiatric History:: Reports:: Anxiety Family Hx:: Cancer, Heart Attack, Hyperlipidemia, Hypertension Review of Systems - Review of Systems Review of systems:: pertinent systems reviewed and negative unless documented below - Constitutional Denies headache(s) - Eyes Denies change in vision - ENT Denies sore throat - *Cardiovascular Denies chest pain at rest - *Respiratory Denies cough - *Gastrointestinal Denies abdominal pain - *Genitourinary Denies blood in urine - *Musculoskeletal Reports joint pain - Integumentary/Breasts Denies rash - *Neurologic Reports frequent falls, Denies headache(s), Denies numbness, Denies weakness - Psychiatric Denies anxiety Meds Home Medications Medication Instructions Recorded Confirmed Type atorvastatin 20 mg tablet 20 mg PO HS 02/17/18 05/17/20 History sertraline 100 mg tablet 200 mg PO DAILY 02/17/18 05/17/20 History Calcium Carbonate/Vitamin D3 1 each PO BID 09/29/19 05/17/20 History [Calcium 600 + Vit D Tablet] Clopidogrel Bisulfate [Clopidogrel 75 mg PO DAILY 09/29/19 05/17/20 History 75mg Tab] Doxepin HCl [Sinequan 10mg capsule] 30 mg PO HS 09/29/19 05/17/20 History Insulin Glargine,Hum.rec.anlog 35 unit SQ HS 09/29/19 05/17/20 History [Basaglar Tevinpen U-100] Metformin HCl 500 mg PO DAILY 09/29/19 05/17/20 History Omeprazole [Omeprazole 40mg 40 mg PO DAILY 09/29/19 05/17/20 History Capsule] Oxybutynin Chloride [Oxybutynin 10 mg PO DAILY 09/29/19 05/17/20 History Chloride ER] lisinopriL [Lisinopril 5mg 5 mg PO DAILY 09/29/19 05/17/20 History Tablet] gabapentin 100 mg capsule 100 mg PO QID #120 cap 01/01/20 05/17/20 Rx ARIPiprazole [Aripiprazole 30mg 30 mg PO
[2020-05-17 21:35] LABS: POC Glucose,Bedside 104 (70-110)
[2020-05-18] VITALS: BP 121/48; PULSE 58; RESP 24; TEMP 36.6; O2SAT 93
--- NOTE | 2020-05-18 01:51 | PC.NURSE ---
PT IS RESTING IN BED. RECEIVED PAIN MEDICATION FOR DISCOMFORT IN THE LT HAND. LT HAND IS ELEVATED ON A PILLOW. PT WAS OFFERED SOME ICE TO APPLY TO HAND FOR COMFORT BUT SHE REFUSED. PT HAS MULTIPLE AREAS WITH BRUISING. PT STATES SHE HAS FALLEN SEVERAL TIMES AT [facility] BUT IS REALLY HOPING SHE CAN GO BACK WHEN SHE IS DISCHARGED FROM THE HOSPITAL B/C THAT IS HER HOME. LUNG SOUNDS CLEAR. ABDOMEN SOFT/NON TENDER WITH ACTIVE BOWEL SOUNDS. PT HAS REDNESS NOTED TO ABDOMINAL FOLDS. VSS. WILL CONTINUE TO MONITOR.
[2020-05-18 03:41] VITALS: BP 120/59; PULSE 60; RESP 16; TEMP 36.6; O2SAT 98
[2020-05-18 05:10] VITALS: BMI 31.8
[2020-05-18 06:41] LABS: POC Glucose,Bedside 85 (70-110)
[2020-05-18 07:08] LABS: Anion Gap 10.1 mEq/L (5-15); Blood Urea Nitrogen 33 mg/dl (7-17); Carbon Dioxide 26 mmol/L (22.0-30.0); Chloride 110 mmol/L (98-107); Creatinine Clearance Estimated 51 mL/min (50-200); Estimated Glomerular Filt Rate 32 ml/min (>60); GFR (African American) 39 ML/MIN (>60); Glucose 84 mg/dl (74-100); Potassium 4.1 mmoL/L (3.5-5.1); Sodium 142 mmol/L (136-145)
[2020-05-18 08:00] VITALS: BP 131/72; PULSE 57; RESP 20; TEMP 36.8; O2SAT 100
[2020-05-18 08:09] LABS: Calcium 9.1 mg/dl (8.4-10.2)
--- NOTE | 2020-05-18 09:11 | HMH.ACPN2 ---
Internal Medicine - PN: Subj *Date: 05/19/20 *Time: 07:32 Interval history: doing better this am -splint lt hand Exam Vital signs and Labs for Last 24 Hours: Temp Pulse Resp BP Pulse Ox 97.9 F 60 16 120/59 L 98 05/18/20 03:41 05/18/20 03:41 05/18/20 03:41 05/18/20 03:41 05/18/20 03:41 Laboratory Results - last 24 hr 05/17/20 10:00: Urine Color Yellow, Urine Appearance Clear, Urine pH 6.0, Ur Specific [place] 1.025, Urine Protein Negative, Urine Glucose (UA) Negative, Urine Ketones Negative, Urine Blood Negative, Urine Nitrate Negative, Urine Bilirubin 1+ A, Urine Urobilinogen 0.2, Ur Leukocyte Esterase Negative, Urine RBC None, Urine WBC 5-10, Ur Squamous Epith Cells 5-10, Urine Bacteria None 05/17/20 10:50: WBC 7.6, RBC 4.28, Hgb 12.1 L, Hct 37.3, MCV 87.2, MCH 28.3, MCHC 32.5, RDW 15.1, Plt Count 130 L, MPV 9.2, Neut % (Auto) 76.9, Lymph % (Auto) 17.0, [place] % (Auto) 4.7, Eos % (Auto) 1.1, Baso % (Auto) 0.3, Neut # (Auto) 5.9, Lymph # (Auto) 1.3, [place] # (Auto) 0.4, Eos # (Auto) 0.1, Baso # (Auto) 0.0 05/17/20 10:50: Sodium 144, Potassium 4.7, Chloride 108 H, Carbon Dioxide 29, Anion Gap 11.7, BUN 32 H, Creatinine 1.80 H, Estimated Creat Clear 49, Estimated GFR 28 L, Est GFR ( Amer) 34 L, Glucose 86, Calcium 10.3 H, Total Bilirubin 0.8, AST 48 H, ALT 20, Alkaline Phosphatase 150 H, Troponin I 0.03, Total Protein 7.9, Albumin 4.4, Globulin 3.5 H, Albumin/Globulin Ratio 1.3 05/17/20 16:57: POC Glucose 109 05/17/20 20:45: POC Glucose 104 05/18/20 06:15: Sodium 142, Potassium 4.1, Chloride 110 H, Carbon Dioxide 26, Anion Gap 10.1, BUN 33 H, Creatinine 1.60 H, Estimated Creat Clear 51, Estimated GFR 32 L, Est GFR ( Amer) 39 L, Glucose 84, Calcium 9.1 D 05/18/20 06:35: POC Glucose 85 I & O for Last 24 hours: Intake & Output 05/15/20 05/16/20 05/17/20 05/18/20 11:59 11:59 11:59 11:59 Intake Total 120 / 120 Balance 120 / 120 Weight 228 lb 210 lb 1 oz Microbiology Reports for the Last 24 Hours: Microbiology 05/17/20 11:30 Nasopharyngeal Coronavirus COVID-19 PCR - Final - Constitutional no acute distress, obese - *Routine HEENT Exam Head: Present: normocephalic Eye: Present: EOMI, PERRL ENT: Present: mucous membranes dry - *Routine Neck Exam Present: supple - *Routine Respiratory Exam Present: CTA bilaterally - *Routine Cardiovascular Exam Present: RRR, murmur - *Routine Abdominal Exam Present: soft - *Routine Extremities Exam Absent: calf tenderness Comments: lt hand in splint - *Routine Skin Exam Present: intact - *Routine Neurological Exam Present: alert, CN II-XII intact - Routine Psychiatric Exam Absent: visual hallucinations, good insight Assessment and Plan (1) Acute kidney injury Status: Acute Category: Medical Code(s): N17.9 - Acute kidney failure, unspecified (2) Contusion of left hip Status: Acute Qualifiers: Encounter type: initial encounter Qualified Code(s): S70.02XA - Contusion of left hip, initial encounter Category: Medical Code(s): S70.02XA - Contusion of left hip, initial encounter (3) Fracture of proximal phalanx of digit of hand Status: Acute Category: Medical Code(s): S62.619A - Displaced fracture of proximal phalanx of unspecified finger, initial encounter for closed fracture (4) Gait instability Status: Acute Category: Medical Code(s): R26.81 - Unsteadiness on feet (5) Knee contusion Status: Acute Qualifiers: Encounter type: initial encounter Laterality: right Qualified Code(s): S80.01XA - Contusion of right knee, initial encounter Category: Medical Code(s): S80.00XA - Contusion of unspecified knee, initial encounter (6) Multiple falls Status: Acute Category: Medical Code(s): R29.6 - Repeated falls (7) Skin tear of forearm without complication Status: Acute Qualifiers: Encounter type: initial encounter Laterality: right Qualified Code(s):
[2020-05-18 12:00] VITALS: BP 125/62; PULSE 57; RESP 20; TEMP 36.8; O2SAT 100
[2020-05-18 12:26] LABS: POC Glucose,Bedside 89 (70-110)
[2020-05-18 16:00] VITALS: BP 130/75; PULSE 60; RESP 19; TEMP 36.8; O2SAT 100
[2020-05-18 16:51] LABS: POC Glucose,Bedside 91 (70-110)
--- NOTE | 2020-05-18 17:39 | PC.NURSE ---
PATIENT HAS BEEN A&OX4 FOR THIS RN THRU THIS SHIFT, LUNGS ARE CLEAR, PULSES EQUAL. PATIENT WAS UP TO CHAIR THIS AFTERNOON. PATIENT FED SELF MEALS, TOLERATED WELL. PATIENT IS A 2X ASSIST TO AMBULATE TO RESTROOM . NO NEW CONCERNS AT THIS TIME.
[2020-05-18 20:00] VITALS: BP 159/74; PULSE 57; RESP 18; TEMP 36.7; O2SAT 95
[2020-05-18 21:40] LABS: POC Glucose,Bedside 171 (70-110)
--- NOTE | 2020-05-19 03:27 | PC.NURSE ---
No acute changes. Pt is A&O x4. C/O discomfort to (L) hand this shift. Medicated per may. VSS. Pt has voided per bedpan this shift. Bed linens and bath given. Scattered bruising noted to face, extremities, ananya area and buttocks. DSG remains in place to LUE. Call light within reach. No other concerns. Will continue to monitor.
[2020-05-19 04:00] VITALS: BP 132/74; PULSE 52; RESP 14; TEMP 36.5; O2SAT 100
[2020-05-19 05:00] VITALS: BMI 32.0
[2020-05-19 05:43] LABS: POC Glucose,Bedside 113 (70-110)
[2020-05-19 08:00] VITALS: BP 130/69; PULSE 59; RESP 18; TEMP 36.7; O2SAT 97
[2020-05-19 08:44] LABS: Basophils % 0.5 % (0.1-2.0); Eosinophils # 0.2 K/mm3 (0.0-0.4); Eosinophils % 4.2 % (0.1-12.0); Hematocrit 32.7 % (37.0-47.0); Hemoglobin 10.5 g/dL (12.2-16.2); Lymphocytes # 1.5 K/mm3 (0.7-4.5); Lymphocytes % 32.6 % (10-50); Mean Corpuscular Hemoglobin 28.8 pg (27.0-31.2); Mean Corpuscular Volume 89.9 fl (81-99); Mean Platelet Volume 9.6 fl (7.4-10.4); Monocytes # 0.2 K/mm3 (0.1-1.0); Monocytes % 4.6 % (1.7-9.3); Neutrophils # 2.7 K/mm3 (1.8-7.8); Neutrophils % 58.2 % (37.0-80.0); Platelet Count 104 K/mm3 (142-424); Red Blood Count 3.64 M/mm3 (4.20-5.40); Red Cell Distribution Width 14.9 % (11.5-17.5); White Blood Count 4.6 K/mm3 (4.8-10.8)
[2020-05-19 09:00] LABS: Anion Gap 9.4 mEq/L (5-15); Blood Urea Nitrogen 25 mg/dl (7-17); Calcium 8.8 mg/dl (8.4-10.2); Carbon Dioxide 24 mmol/L (22.0-30.0); Chloride 110 mmol/L (98-107); Creatinine Clearance Estimated 68 mL/min (50-200); Estimated Glomerular Filt Rate 45 ml/min (>60); GFR (African American) 54 ML/MIN (>60); Glucose 145 mg/dl (74-100); Potassium 4.4 mmoL/L (3.5-5.1); Sodium 139 mmol/L (136-145)
--- NOTE | 2020-05-19 09:23 | HMH.ACPN2 ---
Internal Medicine - PN: Subj *Date: 05/20/20 *Time: 06:59 Interval history: doing better with no chest pain - has ongoing pain to lt upper ext Exam Vital signs and Labs for Last 24 Hours: Temp Pulse Resp BP Pulse Ox 98.1 F 59 L 18 130/69 97 05/19/20 08:00 05/19/20 08:00 05/19/20 08:00 05/19/20 08:00 05/19/20 08:00 Laboratory Results - last 24 hr 05/18/20 12:18: POC Glucose 89 05/18/20 16:36: POC Glucose 91 05/18/20 19:50: POC Glucose 171 H 05/19/20 05:30: POC Glucose 113 H 05/19/20 08:34: WBC 4.6 L D, RBC 3.64 L, Hgb 10.5 L, Hct 32.7 L, MCV 89.9, MCH 28.8, MCHC 32.0, RDW 14.9, Plt Count 104 L, MPV 9.6, Neut % (Auto) 58.2, Lymph % (Auto) 32.6, [place] % (Auto) 4.6, Eos % (Auto) 4.2, Baso % (Auto) 0.5, Neut # (Auto) 2.7, Lymph # (Auto) 1.5, [place] # (Auto) 0.2, Eos # (Auto) 0.2, Baso # (Auto) 0.0 05/19/20 08:34: Sodium 139, Potassium 4.4, Chloride 110 H, Carbon Dioxide 24, Anion Gap 9.4, BUN 25 H, Creatinine 1.20 H D, Estimated Creat Clear 68, Estimated GFR 45 L, Est GFR ( Amer) 54 L D, Glucose 145 H, Calcium 8.8 I & O for Last 24 hours: Intake & Output 05/16/20 05/17/20 05/18/20 05/19/20 11:59 11:59 11:59 12:59 Intake Total 360 / 360 3960 / 3960 Balance 360 / 360 3960 / 3960 Weight 228 lb 210 lb 1 oz 211 lb 4 oz - Constitutional no acute distress, obese - *Routine HEENT Exam Head: Present: normocephalic Eye: Present: EOMI, PERRL ENT: Present: mucous membranes dry - *Routine Neck Exam Present: supple. Absent: JVD - *Routine Respiratory Exam Present: CTA bilaterally - *Routine Cardiovascular Exam Present: RRR - *Routine Abdominal Exam Present: soft - *Routine Extremities Exam Absent: calf tenderness - *Routine Skin Exam Present: intact - *Routine Neurological Exam Present: alert, CN II-XII intact - Routine Psychiatric Exam Present: normal affect Assessment and Plan (1) Acute kidney injury Status: Acute Category: Medical Code(s): N17.9 - Acute kidney failure, unspecified (2) Contusion of left hip Status: Acute Qualifiers: Encounter type: initial encounter Qualified Code(s): S70.02XA - Contusion of left hip, initial encounter Category: Medical Code(s): S70.02XA - Contusion of left hip, initial encounter (3) Fracture of proximal phalanx of digit of hand Status: Acute Category: Medical Code(s): S62.619A - Displaced fracture of proximal phalanx of unspecified finger, initial encounter for closed fracture (4) Gait instability Status: Acute Category: Medical Code(s): R26.81 - Unsteadiness on feet (5) Knee contusion Status: Acute Qualifiers: Encounter type: initial encounter Laterality: right Qualified Code(s): S80.01XA - Contusion of right knee, initial encounter Category: Medical Code(s): S80.00XA - Contusion of unspecified knee, initial encounter (6) Multiple falls Status: Acute Category: Medical Code(s): R29.6 - Repeated falls (7) Skin tear of forearm without complication Status: Acute Qualifiers: Encounter type: initial encounter Laterality: right Qualified Code(s): S51.811A - Laceration without foreign body of right forearm, initial encounter Category: Medical Code(s): S51.819A - Laceration without foreign body of unspecified forearm, initial encounter (8) Obesity (BMI 30-39.9) Status: Acute Category: Medical Code(s): E66.9 - Obesity, unspecified (9) Anemia Status: Acute Qualifiers: Anemia type: unspecified type Qualified Code(s): D64.9 - Anemia, unspecified Category: Medical Code(s): D64.9 - Anemia, unspecified
[2020-05-19 10:25] VITALS: BMI 31.7
[2020-05-19 11:54] LABS: POC Glucose,Bedside 114 (70-110)
[2020-05-19 12:00] VITALS: BP 114/73; PULSE 59; RESP 18; TEMP 37.1; O2SAT 100
[2020-05-19 15:41] LABS: POC Glucose,Bedside 94 (70-110)
--- NOTE | 2020-05-19 16:12 | PC.NURSE ---
PATIENT IS A&O X4, LUNGS ARE DIMINISHED, PULSES EQUAL. PATIENT WAS UP TO CHAIR 2X DURING THIS RN SHIFT. THIS RN RECEIVED AN ORDER FOR ICE ON PATIENT'S LEFT HAND. PATIENT STATED THAT THE ICE HELPED. NO NEW CONCERNS.
[2020-05-19 16:52] VITALS: BP 142/79; PULSE 57; RESP 16; TEMP 36.6; O2SAT 100
[2020-05-19 19:55] VITALS: BP 140/75; PULSE 64; RESP 18; TEMP 36.7; O2SAT 98
[2020-05-19 20:59] LABS: POC Glucose,Bedside 143 (70-110)
[2020-05-20] VITALS (9 sets, daily range): BP systolic 141–170; BP diastolic 72–82; PULSE 50–61; RESP 14–18; TEMP 36.5–36.7; O2SAT 95–98; BMI 32.3
--- NOTE | 2020-05-20 02:14 | PC.NURSE ---
No acute changes noted. Pt has slept at intervals. Has c/o more discomfort to LUE this shift. Medication administered per mar. Bruising continues to face, BUE, ananya area and (L) side. Skin tear to RUE. DSG changed. LUE with DSG intact. Pt has used bedpan to void with episodes of incontinence. Nystatin powder applied. VSS. Call light within reach. Will continue to monitor.
[2020-05-20 06:17] LABS: POC Glucose,Bedside 97 (70-110)
--- NOTE | 2020-05-20 08:00 | CA_ITS ---
APPROVED REPORT EXAM: Comprehensive 2D, Doppler, and color-flow Echocardiogram Forensic Engineer: Radhika Marie, THONG, RVS Ht: 5 ft 8 in Wt: 213lbs BSA: 2.10 HR: 56 bpm BP: 170/82 mmHg Rhythm: Bradycardia Indications: Pre-op s/p fall Lt wrist FX, Hx-mi,HTN, DM, Obestity Echo Enhancing Agent Comments: Technically difficult exam due to limited windows with patient positioned rt lateral decubitus, lung interference and constant motion of patient 2D Dimensions IVSd 1.00 cm F: 0.6-1.0 LVEF (Visual) 77.10 % PWd 1.09 cm F: 0.6 - 1.0 LA Volume 69.00 mL LVDd 5.11 cm F: 3.9 - 5.3 LA Volume Index 32.657909 mL/m2 (M/F) 16-34 LVDs 2.76 cm F: 2.2 - 3.5 Aortic Root 2.88 cm F: 2.7 - 3.3 Left Atrium 3.92 cm F: 2.7 - 3.8 LVOT 1.75 cm (M/F) 1.5-2.5 M-Mode Dimensions LA Diam 4.00 cm (1.9-4.0) Ao Diam 3.32 cm (2.0-3.7) EPSs 0.42 cm TAPSE 1.37 (<1.7) LV Diastology E Decel Time 240.00 (160-240 msec) E/A Ratio 1.26 MED E' 10.00 (< 7 cm/sec) MED A' 15.70 cm/s E'/MED E' Ratio 14.11 (>14) LAT E' 7.00 (<10 cm/sec) LAT A' 6.20 cm/s E/LAT E' Ratio 20.16 (>14) Aortic Valve LVOT Max 98.00 (70-110 cm/s) LVOT VTI 22.63 cm AO Peak GR. 5.10 mmHg Mitral Valve MV E Max Des. 141.00 (40-130 cm/s) MV A Velocity 112.00 (40-130 cm/s) E/A Ratio 1.26 MV Decel. Time 240.00 (160-240 ms) MV PHT 70.00 ms Pulmonary Valve PV Peak Velocity 81.00 (50-150 cm/s) Tricuspid Valve TR P. Velocity 267.00 cm/s RAP Estimate 10.00 mmHg RVSP 38.50 mmHg Left Ventricle Left atrium is moderately enlarged, left ventricle is normal size, mild concentric left ventricular hypertrophy, visually estimated ejection fraction 55% with no regional wall motion abnormality, diastolic parameters are inconclusive. Right Ventricle Right atrium and right ventricle are normal size and contractility. Aortic Valve Aortic valve is minimally thickened and fibrosed. There is no aortic stenosis or aortic insufficiency. Mitral Valve Mitral valve shows mitral annular calcification, leaflets are minimally thickened, there is mild prolapse of the posterior mitral leaflet. There is mild mitral regurgitation. Tricuspid Valve Tricuspid valve grossly normal, there is trace tricuspid regurgitation. Pulmonic Valve Pulmonic valve is poorly visualized. Great Vessels Aortic root is normal size. Pericardium No significant pericardial effusion noted. Conclusion 1. Moderate left atrial enlargement, normal left ventricular size, mild concentric left ventricular hypertrophy, visually estimated ejection fraction 55% with no regional wall motion abnormality, diastolic parameters are inconclusive. 2. Abnormal mitral valve as described above without mitral stenosis, there is mild mitral regurgitation. 3. No significant pericardial effusion noted. Electronically signed by : Pineda Thomas, 05/20/2020 09:18:41
[2020-05-20 08:26] LABS: Basophils % 0.5 % (0.1-2.0); Eosinophils # 0.2 K/mm3 (0.0-0.4); Eosinophils % 3.5 % (0.1-12.0); Hematocrit 34.5 % (37.0-47.0); Hemoglobin 11.1 g/dL (12.2-16.2); Lymphocytes # 1.8 K/mm3 (0.7-4.5); Lymphocytes % 36.9 % (10-50); Mean Corpuscular HGB Conc 32.3 g/dL (31.8-35.4); Mean Corpuscular Hemoglobin 29.1 pg (27.0-31.2); Mean Corpuscular Volume 89.9 fl (81-99); Mean Platelet Volume 9.9 fl (7.4-10.4); Monocytes # 0.2 K/mm3 (0.1-1.0); Monocytes % 4.3 % (1.7-9.3); Neutrophils # 2.7 K/mm3 (1.8-7.8); Neutrophils % 54.8 % (37.0-80.0); Platelet Count 110 K/mm3 (142-424); Red Blood Count 3.83 M/mm3 (4.20-5.40); Red Cell Distribution Width 15.1 % (11.5-17.5); White Blood Count 4.8 K/mm3 (4.8-10.8)
[2020-05-20 08:34] LABS: Chloride 110 mmol/L (98-107); Potassium 4.3 mmoL/L (3.5-5.1); Sodium 143 mmol/L (136-145)
[2020-05-20 08:37] LABS: Anion Gap 9.3 mEq/L (5-15); Blood Urea Nitrogen 20 mg/dl (7-17); Carbon Dioxide 28 mmol/L (22.0-30.0); Creatinine Clearance Estimated 68 mL/min (50-200); Estimated Glomerular Filt Rate 45 ml/min (>60); GFR (African American) 54 ML/MIN (>60)
[2020-05-20 08:38] LABS: Calcium 9.1 mg/dl (8.4-10.2); Glucose 105 mg/dl (74-100)
--- NOTE | 2020-05-20 08:50 | HMH.ACPN2 ---
Internal Medicine - PN: Subj *Date: 05/20/20 *Time: 08:50 Interval history: pt laying in bed no c/o Exam Vital signs and Labs for Last 24 Hours: Temp Pulse Resp BP Pulse Ox 97.9 F 61 16 170/82 H 97 05/20/20 04:00 05/20/20 04:00 05/20/20 07:30 05/20/20 04:00 05/20/20 04:00 Laboratory Results - last 24 hr 05/19/20 08:34: WBC 4.6 L D, RBC 3.64 L, Hgb 10.5 L, Hct 32.7 L, MCV 89.9, MCH 28.8, MCHC 32.0, RDW 14.9, Plt Count 104 L, MPV 9.6, Neut % (Auto) 58.2, Lymph % (Auto) 32.6, [place] % (Auto) 4.6, Eos % (Auto) 4.2, Baso % (Auto) 0.5, Neut # (Auto) 2.7, Lymph # (Auto) 1.5, [place] # (Auto) 0.2, Eos # (Auto) 0.2, Baso # (Auto) 0.0 05/19/20 08:34: Sodium 139, Potassium 4.4, Chloride 110 H, Carbon Dioxide 24, Anion Gap 9.4, BUN 25 H, Creatinine 1.20 H D, Estimated Creat Clear 68, Estimated GFR 45 L, Est GFR ( Amer) 54 L D, Glucose 145 H, Calcium 8.8 05/19/20 11:45: POC Glucose 114 H 05/19/20 15:34: POC Glucose 94 05/19/20 19:51: POC Glucose 143 H 05/20/20 05:20: POC Glucose 97 05/20/20 08:15: WBC 4.8, RBC 3.83 L, Hgb 11.1 L, Hct 34.5 L, MCV 89.9, MCH 29.1, MCHC 32.3, RDW 15.1, Plt Count 110 L, MPV 9.9, Neut % (Auto) 54.8, Lymph % (Auto) 36.9, [place] % (Auto) 4.3, Eos % (Auto) 3.5, Baso % (Auto) 0.5, Neut # (Auto) 2.7, Lymph # (Auto) 1.8, [place] # (Auto) 0.2, Eos # (Auto) 0.2, Baso # (Auto) 0.0 05/20/20 08:15: Sodium 143, Potassium 4.3, Chloride 110 H, Carbon Dioxide 28, Anion Gap 9.3, BUN 20 H, Creatinine 1.20 H, Estimated Creat Clear 68, Estimated GFR 45 L, Est GFR ( Amer) 54 L, Glucose 105 H D, Calcium 9.1 I & O for Last 24 hours: Intake & Output 05/17/20 05/18/20 05/19/20 05/20/20 10:59 10:59 11:59 11:59 Intake Total 1876 / 1876 Output Total 250 / 250 Balance 1626 / 1626 Weight 213 lb 1 oz Microbiology Reports for the Last 24 Hours: Microbiology 05/18/20 11:36 Urine,Clean Catch Urine Culture - Final Multiple organisms, suggests contamination. - Constitutional no acute distress, obese - *Routine HEENT Exam Head: Present: normocephalic Eye: Present: PERRL ENT: Present: mucous membranes moist - *Routine Neck Exam Present: supple. Absent: lymphadenopathy - *Routine Respiratory Exam Present: CTA bilaterally - *Routine Cardiovascular Exam Present: RRR - *Routine Abdominal Exam Present: soft, normoactive bowel sounds. Absent: tenderness - *Routine Extremities Exam Absent: cyanosis, clubbing, edema Comments: splint to left hand/wrist - *Routine Skin Exam Present: warm, ecchymosis. Absent: rash Comments: contusion to rt knee rt forearm skin tear contusion to left hip bruising to both eyes lac to forehead scattered bruising - *Routine Neurological Exam Present: alert - Routine Psychiatric Exam Present: normal affect Assessment and Plan (1) Acute kidney injury Status: Acute Category: Medical Code(s): N17.9 - Acute kidney failure, unspecified (2) Contusion of left hip Status: Acute Qualifiers: Encounter type: initial encounter Qualified Code(s): S70.02XA - Contusion of left hip, initial encounter Category: Medical Code(s): S70.02XA - Contusion of left hip, initial encounter (3) Fracture of proximal phalanx of digit of hand Status: Acute Category: Medical Code(s): S62.619A - Displaced fracture of proximal phalanx of unspecified finger, initial encounter for closed fracture (4) Gait instability Status: Acute Category: Medical Code(s): R26.81 - Unsteadiness on feet (5) Knee contusion Status: Acute Qualifiers: Encounter type: initial encounter Laterality: right Qualified Code(s): S80.01XA - Contusion of right knee, initial encounter Category: Medical Code(s): S80.00XA - Contusion of unspecified knee, initial encounter (6) Multiple falls Status: Acute Category: Medical Code(s): R29.6 - Repeated falls (7) Skin tear of forearm without complication Status
--- NOTE | 2020-05-20 08:57 | HMH.CNCARD ---
History of Present Illness Consult date: 05/20/20 Requesting physician: Marcio Rodriguez Consult reason: pre-op evaluation Chief complaint: falls, had pain Additional Medical History:: 1. History of myocardial infarction, per patient, approximately 10 years ago with reported cardiac catheterization at [facility] in [place] finding no significant coronary artery disease that needed intervention 2. Hypertension 3. Hyperlipidemia 4. Presumed esophageal stricture with history of therapy/EGD and correction in the past. 5. Diabetes mellitus type 2 6. Thrombocytopenia 7. CKD, stage II History of present illness: This is a 69-year-old female who is a resident at [facility]. She was brought into the emergency department after sustaining multiple falls. The patient reports that she has been falling because she really feels unsteady on her feet. She states that she has been leaning to the left and just falls over. She states that she has been using a walker and still sustaining multiple falls. She denies any chest pain or pressure. Denies any shortness of breath or racing of the heart. She denies any episodes of syncope. After her most recent fall the patient states that she has been having left hip pain, right knee pain right forearm pain and left hand pain. She states that she did not hit her head but she does have significant facial bruising and states that she has hit her face and head on previous falls. She is currently being treated for a UTI as well. She does report having a history of an HI approximately 10 years ago with cardiac catheterization that required no stenting. She also has hypertension hyperlipidemia and diabetes. She denies any fever, chills, nausea, vomiting, diarrhea, PND or orthopnea. She does report edema in her left upper extremity. She does have a splint noted to her left hand and forearm for a fracture of the left ring finger, proximal phalanx. This is an unstable fracture and will require surgery. Cardiology has been consulted for cardiac preoperative clearance. [facility] History I have reviewed the patient's past medical history: Yes Medical History: Reports:: Anxiety, Congestive Heart Failure, Diabetes Mellitus Type 2, Gastroesophageal Reflux Disease(GERD), Hyperlipidemia, Hypertension, Myocardial Infarction Denies:: Cancer, Diabetes Mellitus Type 1, MRSA *Have you ever received a pneumonia vaccine?: No *Have you received a flu vaccine this season?: Yes Other Medical History: Reports: Anemia, Arthritis Laterality Cases: Left: Arthroscopy Shoulder Other Surgeries: Yes: No Previous Surgery, Cardiac Catheterization Amputation: No Fractures: Yes - *Social History Last grade of school completed: High school graduate Smoking Status: Never smoker Alcohol Intake: never Alcohol Intake Frequency:: 0-2 drinks per day Substance Use Type: denies use *Occupational Status:: unemployed Housing: assisted living facility Household Members: other *Travel in the last 8 weeks: None - Psychiatric History Pschychiatric History:: Reports:: Anxiety Family Hx:: Cancer, Heart Attack, Hyperlipidemia, Hypertension Meds Home Medications Medication Instructions Recorded Confirmed Type atorvastatin 20 mg tablet 20 mg PO HS 02/17/18 05/17/20 History sertraline 100 mg tablet 200 mg PO DAILY 02/17/18 05/17/20 History Calcium Carbonate/Vitamin D3 1 each PO BID 09/29/19 05/17/20 History [Calcium 600 + Vit D Tablet] Clopidogrel Bisulfate [Clopidogrel 75 mg PO DAILY 09/29/19 05/17/20 History 75mg Tab] Doxepin HCl [Sinequan 10mg capsule] 30 mg PO 09/29/19 05/17/20 History Insulin Glargine,Hum.rec.anlog 35 unit SQ 09/29/19 05/17/20 History [Basaglar Tevinpen U-100] Metformin HCl 500 mg PO DAILY 09/29/19 05/17/20 History Omeprazole [Omeprazole 40mg 40 mg PO DAILY 09/29/19 05/17/20 History Capsule] Oxybutynin Chloride [Oxybutynin 10 mg PO DAILY 09/29/19 05/17/20 History Chloride ER] lisinopriL [Lisino
--- NOTE | 2020-05-20 10:56 | PC.NURSE ---
Pt will not have surgery today per Dr. Ash.
[2020-05-20 11:19] LABS: POC Glucose,Bedside 87 (70-110)
--- NOTE | 2020-05-20 13:01 | P.PN_ITS ---
Subjective Date: 05/20/20 Time: 12:00 Principal diagnosis: L ring finger proximal phalanx fracture Interval history: The patient is doing well this morning. She has been seen by cardiology and cleared for surgery on the hand. No changes in her history or new complaints s bishnu I last saw her Wednesday. PN: Obj Ex Vital signs: Temp Pulse Resp BP Pulse Ox 98.0 F 58 L 14 145/80 H 98 05/20/20 11:53 05/20/20 11:53 05/20/20 11:53 05/20/20 11:53 05/20/20 11:53 - Constitutional no acute distress - Routine HEENT Exam Head: Present: abrasion, hematoma, facial swelling Eye: Present: EOMI ENT: Present: mucous membranes moist - Routine Neck Exam Present: trachea midline - Routine Respiratory Exam Absent: respiratory distress, wheezes - Routine Cardiovascular Exam Present: RRR - Routine Abdominal Exam Present: soft. Absent: tenderness - Routine Extremities Exam Comments: L hand in ulnar gutter splint AIN/PIN/ulnar nerves motor intact distally LUE SILT distally m/r/u distributions LUE palpable radial pulse L wrist, fingers pink/warm with brisk capillary refill abrasions R forearm, clean and dry R knee contusion; ecchymosis anterior knee, no effusion, non-tender with FROM L hip FROM without pain, no tenderness to touch 5/5 strength BLE hip flexion/extension, knee flexion/extension, DF/PF/EHL palpable pedal pulses BLE, feet warm/pink - Routine Skin Exam Present: warm - Routine Neurological Exam Present: alert, oriented X3, moving all extremities, normal tone, vision grossly intact, hearing grossly intact, normal speech. Absent: sensory deficit, motor deficit, altered mental status Progress Note: A&P (1) Pre-operative cardiovascular examination Status: Acute (2) HTN (hypertension) Status: Chronic (3) Hyperlipidemia Status: Chronic (4) Acute kidney injury Status: Acute (5) Contusion of left hip Status: Acute (6) Fracture of proximal phalanx of digit of hand Status: Acute (7) Gait instability Status: Acute (8) Knee contusion Status: Acute (9) Multiple falls Status: Acute (10) Skin tear of forearm without complication Status: Acute (11) Obesity (BMI 30-39.9) Status: Acute (12) Anemia Status: Acute (13) Diabetes Status: Chronic Assessment and Plan for All Diagnoses:: 69yo F with history of gait instability and multiple recent falls, being treated for recent UTI; admitted with JACK and multiple contusions/abrasions to the extremities, as well as a new fracture of the L ring finger proximal phalanx; DOI 05/17/20 -- continue ulnar gutter splint LUE; elevate L hand frequently to decrease swelling -- continue current medical management per primary team/cardiology -- will plan on CRPP L ring PP fx tomorrow morning -- 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
--- NOTE | 2020-05-20 14:22 | DIET.NUTRFU ---
PO intakes 75%, weight stable, normal bowel function. No nutritional complaints/concerns, pt with diabetic/soft diet. Continuing to monitor.
[2020-05-20 16:14] LABS: POC Glucose,Bedside 109 (70-110)
[2020-05-20 17:00] LABS: Adenovirus,PCR Not Detected (NotDetected); Bordetella Pertussis Not Detected (NotDetected); Chlamydophila Pneumoniae, PCR Not Detected (NotDetected); Coronavirus 19, PCR Not Detected (NotDetected); Coronavirus 229E Not Detected (NotDetected); Coronavirus NL63 Not Detected (NotDetected); Coronavirus OC43 Not Detected (NotDetected); Coronovirus HKU1,PCR Not Detected (NotDetected); Human Metapneumovirus Not Detected (NotDetected); Influenza A, PCR Not Detected (NotDetected); Influenza AH1, 2009 Not Detected (NotDetected); Influenza AH1, PCR Not Detected (NotDetected); Influenza AH3,PCR Not Detected (NotDetected); Influenza B, PCR Not Detected (NotDetected); Mycoplasma Pneumoniae, PCR Not Detected (NotDetected); Parainfluenza 1, PCR Not Detected (NotDetected); Parainfluenza 2, PCR Not Detected (NotDetected); Parainfluenza 3, PCR Not Detected (NotDetected); Parainfluenza 4, PCR Not Detected (NotDetected); Respiratory Syncytial Virus Not Detected (NotDetected); Rhinovirus/Enterovirus Not Detected (NotDetected)
--- NOTE | 2020-05-20 18:38 | HMH.BHCONS ---
*Admission Date: 05/17/20 *Reason for consult:: falls; possibly from medications *History of present illness: I interviewed patient at bedside. She was alone. -she states that she is here for lots of falls -she currently resides at [facility] -she states that she can tell she is going to fall before it happens -that she feels she is rushing -she is using her walker -but can't sit down or get to a seat before she falls -she is bruised all over She states that she does take medicines to help her sleep at night. However she is falling all hours of the day. -she state that she doesn't sleep well at night; maybe 4-6 hours -but then she naps a lot in the daytime -she states that this is all they have to do where she lives at She reports she has lived at [facility] for about a year. -that before this she was a patient at [facility]. -and before this she was homeless -she states that the best decision she ever made was going to live there -that meant that she had a home -she states that she was at [facility] for about a week for suicidal ideations -she had a plan to drink drano -she had attempted 2 times prior to this; both by cutting her wrists She reports that a lot of her depression started when she was younger. 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 -but they are good ones -she states that she sees cats all the time -she has 4-5 with her at any time in her hospital room here -she states that she has been seeing them ever since she raised them -not sure what this means; she would not elaborate -she states that she has been diagnosed schizophrenic for a long time -the only hallucination she endorses seeing is cats -denies that she hears any voices RECOMMENDATIONS: 1. Hold all psychotropic mediations. -to see if the dizziness resolves on it's own 2. This is likely a result from something else; she hasn't had her medicines since here in the hospital (for 3 days) and her gait is not better. -she denies getting dizzy -she states that she just feels she is going to fall and then she finds herself on the floor TIME IN: 1715 TIME OUT: 1750 [facility] History Medical History: Reports:: Anxiety, Congestive Heart Failure, Diabetes Mellitus Type 2, Gastroesophageal Reflux Disease(GERD), Hyperlipidemia, Hypertension, Myocardial Infarction Denies:: Cancer, Diabetes Mellitus Type 1, MRSA *Have you ever received a pneumonia vaccine?: No *Have you received a flu vaccine this season?: Yes Other Medical History: Reports: Anemia, Arthritis Laterality Cases: Left: Arthroscopy Shoulder Other Surgeries: Yes: No Previous Surgery, Cardiac Catheterization Amputation: No Fractures: Yes - *Social History Last grade of school completed: High school graduate Smoking Status: Never smoker Alcohol Intake: never Alcohol Intake Frequency:: 0-2 drinks per day Substance Use Type: denies use *Occupational Status:: unemployed Housing: assisted living facility Household Members: other *Travel in the last 8 weeks: None - Psychiatric History Pschychiatric History:: Reports:: Anxiety Family Hx:: Cancer, Heart Attack, Hyperlipidemia, Hypertension Review of Systems - *Neurologic Reports abnormal walking, Reports frequent falls, Reports lack of coordination, Denies headache(s), Denies numbness, Denies fainting, Denies weakness Meds Home Medications Medication Instructions Recorded Confirmed Type atorvastatin 20 mg tablet 20 mg PO HS 02/17/18 05/17/20 History sertraline 100 mg tablet 200 mg PO DAILY 02/17/18 05/17/20 History Calcium Carbonate/Vitamin D3 1 each PO BID 09/29/19 05/17/20 History [Calcium 600 + Vit D Tablet] Clopidogrel Bisulfate [Clopidogrel 75 mg
--- NOTE | 2020-05-20 20:15 | PC.NURSE ---
Pt treated for generalized all over pain per MAY. Remains on room air. No s/s of resp distress. Abdomen soft, non-tender w/ active BS. No BM this shift. Pt has been incontinent throughout shift. Staff have offered to get pt up to BSC, but pt states she is unaware when she has voided on herself. Pt received bath and linen change. LUE remains in cast, cap refill <3 sec, able to move fingers freely. Scattered bruising noted. Pt up to chair this shift w/ assistance x1. No needs voiced. Call cortes w/in reach.
[2020-05-20 21:42] LABS: POC Glucose,Bedside 104 (70-110)
[2020-05-21] VITALS (23 sets, daily range): BP systolic 124–179; BP diastolic 52–93; PULSE 50–73; RESP 12–20; TEMP 36.1–39.4; O2SAT 93–100; BMI 31.7
[2020-05-21 06:15] LABS: POC Glucose,Bedside 106 (70-110)
--- NOTE | 2020-05-21 06:50 | PC.NURSE ---
no acute changes since prior assessment, pt has rested well t/o shift, complained of pain one time and was treated per MAY, lungs CTA and remains on room air, no complaints of SOA or chest pain, bed alarm on for safety
[2020-05-21 06:51] LABS: Chol/HDL Ratio 2.9 (1-3.5); Cholesterol 112 mg/dl (140-200); HDL Cholesterol 39 mg/dl (40-60); Triglycerides 139 mg/dl (30-150); VLDL Cholesterol 28 mg/dL (0-40)
[2020-05-21 06:52] LABS: Blood Urea Nitrogen 17 mg/dl (7-17); Calcium 9.2 mg/dl (8.4-10.2); Carbon Dioxide 25 mmol/L (22.0-30.0); Creatinine Clearance Estimated 81 mL/min (50-200); Estimated Glomerular Filt Rate 55 ml/min (>60); GFR (African American) 67 ML/MIN (>60); Glucose 114 mg/dl (74-100); Potassium 3.9 mmoL/L (3.5-5.1); Sodium 141 mmol/L (136-145)
[2020-05-21 07:02] LABS: Direct LDL Cholesterol 36.22 mg/dL (100-129)
[2020-05-21 07:20] LABS: Anion Gap 10.9 mEq/L (5-15); Chloride 109 mmol/L (98-107)
[2020-05-21 07:44] LABS: Basophils % 0.4 % (0.1-2.0); Eosinophils # 0.2 K/mm3 (0.0-0.4); Hematocrit 35.7 % (37.0-47.0); Hemoglobin 11.4 g/dL (12.2-16.2); Lymphocytes # 1.5 K/mm3 (0.7-4.5); Lymphocytes % 27.1 % (10-50); Mean Corpuscular HGB Conc 31.9 g/dL (31.8-35.4); Mean Corpuscular Hemoglobin 28.5 pg (27.0-31.2); Mean Corpuscular Volume 89.3 fl (81-99); Monocytes # 0.3 K/mm3 (0.1-1.0); Monocytes % 4.6 % (1.7-9.3); Neutrophils # 3.6 K/mm3 (1.8-7.8); Neutrophils % 64.8 % (37.0-80.0); Platelet Count 114 K/mm3 (142-424); Red Blood Count 3.99 M/mm3 (4.20-5.40); Red Cell Distribution Width 15.1 % (11.5-17.5); White Blood Count 5.5 K/mm3 (4.8-10.8)
--- NOTE | 2020-05-21 07:53 | HMH.ANESCL ---
[facility] Anesthesia Checklist - Patient Identification Patient Identification: Arm Band - Structural Data Admitted From: Emergency Dept Planned Operative Procedure/s: Closed reduction pinning Consent for Planned Operative Procedure(s) Verified: Yes - Cardiovascular Assessment Heart Sounds: S1 & S2 Pulse Strength: Baseline - Airway Assessment C-Spine Mobility Assessed: Yes TMJ Mobility Assessed: Yes (Large tongue) Dentition: Edentulous - Neurological Assessment Level of Consciousness: Awake, Alert Hx Seizures: No Numbness or tingling in extremities: No (Weakness in bilateral lower extremities) - Anesthesia Plan Anesthesia Risk discussed: Yes Anesthesia Plan: Verified ASA Class: III Anesthesia Type: General [facility] History I have reviewed the patient's past medical history: Yes Medical History: Reports:: Anxiety, Congestive Heart Failure, Chronic Obstructive Pulmonary Disease (COPD), Cerebrovascular Accident, Diabetes Mellitus Type 2, Gastroesophageal Reflux Disease(GERD), Hyperlipidemia, Hypertension, Myocardial Infarction Denies:: Cancer, Diabetes Mellitus Type 1, MRSA *Have you ever received a pneumonia vaccine?: No *Have you received a flu vaccine this season?: Yes Other Medical History: Reports: Anemia, Arthritis Anesthesia experience/problems:: None Laterality Cases: Left: Arthroscopy Shoulder Other Surgeries: Yes: No Previous Surgery, Cardiac Catheterization Amputation: No Fractures: Yes - *Social History Last grade of school completed: High school graduate Smoking Status: Never smoker Alcohol Intake: never Alcohol Intake Frequency:: 0-2 drinks per day Substance Use Type: denies use *Occupational Status:: unemployed Housing: assisted living facility Household Members: other *Travel in the last 8 weeks: None - Psychiatric History Pschychiatric History:: Reports:: Anxiety Family Hx:: Cancer, Heart Attack, Hyperlipidemia, Hypertension
--- NOTE | 2020-05-21 09:25 | P.PN_ITS ---
[facility] Anesthesia Record Part I Intake, IV Amount: 300 Estimated blood loss (mL): 0 Urine output (mL): 0 Blood Pressure: 145/52 SaO2: 95 Pulse Rate: 73 Respiratory Rate: 12 Temperature: 97.8 F Patient is:: Awake, Stable Stable to PACU at:: 09:20
[2020-05-21 09:48] LABS: POC Glucose,Bedside 104 (70-110)
--- NOTE | 2020-05-21 09:57 | HMH.OPNOTE ---
Date of procedure: 05/21/20 Pre-op Diagnosis:: L ring finger proximal phalanx fracture Post-op Diagnosis:: L ring finger proximal phalanx fracture Procedure performed:: closed reduction percutaneous pinning (CRPP) L ring finger proximal phalanx fracture Surgeon:: Eliza Pantoja MD Wastewater Treatment Engineer(s):: Elba Emery GRANITE FABRICATOR:: Emiliano John Anesthesia: LMA Estimated blood loss (mL): 5 Clinical Note:: 69-year-old female resident of [facility] brought to the ER for evaluation after sustaining multiple falls recently. Her most recent fall was 05/17/20 but per report has fallen multiple times recently. She has a walker and was using it today when she fell. On admission she reported left hip pain, but currently does not experience this. She has some soreness in the right knee and right forearm in addition to the left hand. She did not hit her head today, but has on previous falls and has facial bruising. She has recently been diagnosed with a UTI and has been on antibiotics for 3 days. Denies chest pain, shortness of breath, cough, fever, vomiting or diarrhea. A fracture was noted to the left hand ring finger proximal phalanx in the ER and an ulnar gutter splint placed. This was a fracture of the base with an extension deformity of the distal fragment. I discussed the inherent instability of this fracture with the patient and recommend closed reduction & percutaneous pinning. I discussed both operative and nonoperative treatment options with the patient, including their inherent risks and benefits. After discussion, the patient has elected to proceed with surgical treatment. I discussed the risks of the procedure, including but not limited to: bleeding, infection, neurovascular damage, nonunion, malunion, postoperative stiffness, possible need for surgical tenolysis in the future, possible need for occupational therapy, persistent pain in the finger, and risks of anesthesia. The patient vocalized understanding and provided informed consent for the procedure. Operative findings:: k-wire 0.35-in x2 Operative note:: The patient was identified in pre-operative holding and the left hand marked by myself. Consent was reviewed by myself and all questions answered. She was then taken to the OR and placed supine on the OR table with the left arm on a hand table. 2g cefazolin were infused and anesthesia administered with an LMA. SCDs were placed on bilateral lower extremities. Timeout was performed, identifying the correct patient, correct procedure, and correct site. The left hand was then prepped and draped in the usual sterile fashion. C-arm was brought in to image the hand. The ring finger proximal phalanx fracture was visualized: an oblique fracture of the base, which was also pulled into an extended/dorsally angulated, apex volar deformity. The fracture was reduced in a closed fashion using manual pressure. Once acceptable alignment was achieved, it was stabilized with 2 0.035 k-wires in a crossed fashion. The wires were started from the proximal aspect of the bone, one at the ulnar base and the other radially. They were each passed in an antegrade fashion, past the fracture site and anchored in the distal fracture fragment. The wires were crossed distal to the fracture site. Once acceptable reduction/fixation was achieved and seen on fluoro, the pins were trimmed. Using a heavy needle non cdl driver and a conti suction tip, the wire was bent and trimmed just outside the skin, and pin caps placed. Xeroform, 4x4s, webril were applied and a plaster ulnar gutter splint applied. The tourniquet was not inflated during this case and EBL was <5cc. The patient tolerated this procedure well without any immediate adverse sequelae. Tourniquet time (min): 0 Condition: stable Disposition: PACU Specimens:: none Complications:: none
--- NOTE | 2020-05-21 10:03 | HMH.ORTHPN ---
Subjective Date: 05/21/20 Time: 10:00 Principal diagnosis: L ring finger proximal phalanx fracture Interval history: The patient underwent CRPP L ring finger PP fx this morning without complication. PN: Obj Ex Vital signs: Temp Pulse Resp BP Pulse Ox 97.8 F 73 12 145/52 H 97 05/21/20 09:25 05/21/20 09:25 05/21/20 09:25 05/21/20 09:25 05/21/20 04:00 - Constitutional no acute distress - Routine Extremities Exam Comments: L hand in ulnar gutter splint AIN/PIN/ulnar nerves motor intact distally LUE SILT distally m/r/u distributions LUE palpable radial pulse L wrist, fingers pink/warm with brisk capillary refill Progress Note: A&P (1) Pre-operative cardiovascular examination Status: Acute (2) HTN (hypertension) Status: Chronic (3) Hyperlipidemia Status: Chronic (4) Acute kidney injury Status: Acute (5) Contusion of left hip Status: Acute (6) Fracture of proximal phalanx of digit of hand Status: Acute (7) Gait instability Status: Acute (8) Knee contusion Status: Acute (9) Multiple falls Status: Acute (10) Skin tear of forearm without complication Status: Acute (11) Obesity (BMI 30-39.9) Status: Acute (12) Anemia Status: Acute (13) Diabetes Status: Chronic Assessment and Plan for All Diagnoses:: 69yo F POD 1 s/p CRPP L ring finger PP fx -- do not remove splint LUE, keep hand elevated -- NWB LUE -- ok to d/c to SNF from ortho standpoint, call office at [phone] when ready for transfer to schedule follow-up appointment
--- NOTE | 2020-05-21 10:26 | XR_ITS ---
PROCEDURE: XR FINGER LT MIN 2V CLINICAL INDICATION: PINNING OF LT RING FINGER COMPARISON: CR XR HAND LT MIN 3V from 05/17/2020 FINDINGS: Fluoroscopy time: 50 seconds Multiple C-arm images submitted demonstrates 2 K-wires placed crossing 1 another within the proximal aspect of the proximal phalanx of the 4th finger with good alignment of the fracture fragments. IMPRESSION: Status post pinning of the proximal phalangeal fracture of the 4th digit with good alignment Dictated by: Manan Haro MD 05/22/2020 17:17 Manan Haro MD in OV 05/22/2020 17:17
--- NOTE | 2020-05-21 10:47 | HMH.ANESII ---
[facility] Anesthesia Record Part II Discharge Time: 09:40 Destination: Medical Surgical Department PACU nurse assessment reviewed?: Yes Patient Condition:: Good Anesthesia Complications:: None Swallowing reflex intact?: Yes Cyanosis?: No Blood Pressure: 160/87 Pulse Rate: 55 Temperature: 97.6 F Mental Status: Alert & Oriented Pain level:: 0 Nausea and/or vomitting:: None Intake, IV Amount: 0
--- NOTE | 2020-05-21 10:59 | HMH.PNCARD ---
Subjective Date: 05/21/20 Time: 10:50 Principal diagnosis: L ring finger proximal phalanx fracture Interval history: This is a 69-year-old female who is a resident of [facility] and she was brought into the emergency department here at [facility] for multiple falls. The patient did fracture her left ring finger and this was an unstable fracture and she underwent surgery for this this morning. She tolerated the procedure well. This morning she denies any chest pain or pressure. She denies any shortness of breath or edema. She denies any racing of the heart. She denies any fever, chills, nausea, vomiting, diarrhea, PND orthopnea. Her only complaint this morning is pain in her hand where she had her surgery. Exam Vital signs and Labs for Last 24 Hours: Temp Pulse Resp BP Pulse Ox 97.6 F 55 L 16 160/87 H 99 05/21/20 10:48 05/21/20 10:48 05/21/20 10:30 05/21/20 10:48 05/21/20 10:30 Laboratory Results - last 24 hr 05/20/20 11:04: POC Glucose 87 05/20/20 15:48: POC Glucose 109 05/20/20 16:54: Chlamy pneumoniae PCR Not detected, Adenovirus (PCR) Not detected, B. pertussis DNA (PCR) Not detected, Coronavirus OC43 (PCR) Not detected, Coronavirus HKU1 (PCR) Not detected, Coronavirus 229E (PCR) Not detected, SARS-CoV-2 (PCR) Not detected, Coronavirus NL63 (PCR) Not detected, Human Metapneumovir PCR Not detected, Influenza A (H1) PCR Not detected, Influ A (H1N1/09) PCR Not detected, Influenza A (H3) PCR Not detected, Influenza Type A (PCR) Not detected, Influenza Type B (PCR) Not detected, M. pneumoniae (PCR) Not detected, Parainfluenza 1 (PCR) Not detected, Parainfluenza 2 (PCR) Not detected, Parainfluenza 3 (PCR) Not detected, Parainfluenza 4 (PCR) Not detected, RSV (PCR) Not detected, Entero/Rhino (PCR) Not detected 05/20/20 20:30: POC Glucose 104 05/21/20 06:08: POC Glucose 106 05/21/20 06:12: WBC 5.5, RBC 3.99 L, Hgb 11.4 L, Hct 35.7 L, MCV 89.3, MCH 28.5, MCHC 31.9, RDW 15.1, Plt Count 114 L, MPV 9.0, Neut % (Auto) 64.8, Lymph % (Auto) 27.1, Russell % (Auto) 4.6, Eos % (Auto) 3.0, Baso % (Auto) 0.4, Neut # (Auto) 3.6, Lymph # (Auto) 1.5, Russell # (Auto) 0.3, Eos # (Auto) 0.2, Baso # (Auto) 0.0 05/21/20 06:12: Sodium 141, Potassium 3.9, Chloride 109 H, Carbon Dioxide 25, Anion Gap 10.9, BUN 17, Creatinine 1.00, Estimated Creat Clear 81, Estimated GFR 55 L, Est GFR ( Amer) 67 D, Glucose 114 H, Calcium 9.2 05/21/20 06:12: Triglycerides 139, Cholesterol 112 L, LDL Cholesterol Direct 36.22 L, VLDL Cholesterol 28, HDL Cholesterol 39 L, Cholesterol/HDL Ratio 2.9 05/21/20 09:41: POC Glucose 104 I & O for Last 24 hours: Intake & Output 05/18/20 05/19/20 05/20/20 05/21/20 22:59 23:59 23:59 23:59 Intake Total 2395 / 2395 300 / 300 Output Total 250 / 250 250 / 250 Balance 2145 / 2145 50 / 50 Weight 213 lb 1 oz 209 lb 6 oz Microbiology Reports for the Last 24 Hours: Microbiology 05/18/20 11:36 Urine,Clean Catch Urine Culture - Final Multiple organisms, suggests contamination. Narrative: Telemetry strip is sinus rhythm with a rate of 60. - Constitutional no acute distress, obese - *Routine HEENT Exam Head: Present: normocephalic, atraumatic Eye: Present: EOMI, PERRL ENT: Present: mucous membranes moist - *Routine Neck Exam Present: supple, full ROM, normal carotid upstroke. Absent: JVD, carotid bruit, lymphadenopathy - *Routine Respiratory Exam Present: CTA bilaterally - *Routine Cardiovascular Exam Present: RRR, Normal S1, Normal S2. Absent: murmur - *Routine Abdominal Exam Present: soft, normoactive bowel sounds. Absent: tenderness, distended - *Routine Extremities Exam Present: edema (L UE), full ROM, pulses intact. Absent: cyanosis, clubbing - *Routine Skin Exam Present: warm, ecchymosis (to R knee and face/around eyes). Absent: rash Comments: abrasion noted to the R forearm splint noted to the L arm/forearm. brisk cap refill. - *Rout
[2020-05-21 11:24] LABS: POC Glucose,Bedside 95 (70-110)
--- NOTE | 2020-05-21 12:57 | HMH.DCSUM ---
General - General Admission date:: 05/17/20 Discharge date: 05/21/20 HPI HPI: this pt from [facility] who has had multiple falls - pt with lt hand injury: to ed per squad pt resident ken bailey sent for eval due to freg falls and c/o lt hip pain. pt seen 05/13 for falls and head injury, dx with uti. pt with multiple bruises noted, face, rt knee, yoon hands, yoon legs. skin tear to rt lower arm Arrives by ambulance from [facility]. States that she keeps falling. She most recently fell today, but has fallen multiple times recently. She says she gets to leaning to the left and falls over. She has a walker and was using it today when she fell. She says that she injured her left hip, right knee, and right forearm today. Her forearm injury is a skin tear. Right knee is bruised. Left hip is sore. She also has left hand pain, swelling, and bruising, from a previous fall a couple of days ago. States she did not hit her head today. She has hit her head on previous falls. States last tetanus immunization was a couple of years ago. She states she is currently being treated for UTI, has been on antibiotics for 3 days. Denies chest pain, shortness of breath, cough, fever, vomiting, diarrhea. pt was admitted for eval and treatment Hospital Course Hospital Course: this pt from [facility] who has had multiple falls - pt with lt hand injury: to ed per squad pt resident ken bailey sent for eval due to freg falls and c/o lt hip pain. pt seen 05/13 for falls and head injury, dx with uti. pt with multiple bruises noted, face, rt knee, yoon hands, yoon legs. skin tear to rt lower arm Arrives by ambulance from [facility]. States that she keeps falling. She most recently fell today, but has fallen multiple times recently. She says she gets to leaning to the left and falls over. She has a walker and was using it today when she fell. She says that she injured her left hip, right knee, and right forearm today. Her forearm injury is a skin tear. Right knee is bruised. Left hip is sore. She also has left hand pain, swelling, and bruising, from a previous fall a couple of days ago. States she did not hit her head today. She has hit her head on previous falls. States last tetanus immunization was a couple of years ago. She states she is currently being treated for UTI, has been on antibiotics for 3 days. Denies chest pain, shortness of breath, cough, fever, vomiting, diarrhea. pt was admitted for eval and treatment 05/17/20 L Hand XR: IMPRESSION: Mildly displaced fracture proximal phalanx 4th digit Dictated by: Tahir Head CT: FINDINGS: No midline shift, mass effect, intracranial hemorrhage, hydrocephalus, or extra-axial fluid collection is evident. There is generalized atrophy with hypoattenuation of the periventricular white matter consistent with microangiopathic changes. The calvarium has an unremarkable appearance. No mastoid effusion. No sinus air-fluid level. 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 There is a faint lucency involving the proximal aspect of the fibula on the lateral view and may represent a nondisplaced fracture. Please correlate as the patient's area of pain and tenderness. Other findings:None. IMPRESSION: Possible nondisplaced fracture proximal fibula Dictated by: Tahir 05/17/20 L Hip XR: FINDINGS: No fracture or dislocation is evident. No significant degenerative change. No lytic or blastic change. Unremarkable soft tissues. IMPRESSION: No acute findings. Dictated by: Josefina Haro seen and performed CRPP for L ring finger proximal phalanx fracture and recommends: -- do not remove splint LUE, keep hand elevated -- NWB LUE -- ok to d/c to SNF from ortho standpoint, call
--- NOTE | 2020-05-21 13:06 | SUR.OPER ---
.035 k wire x2 implanted into left ring finger proximal phalanx/ see operative note for more details.
--- NOTE | 2020-05-21 13:53 | HMH.ACPN ---
Internal Medicine - PN: Subj *Date: 05/21/20 *Time: 13:53 Exam Vital signs and Labs for Last 24 Hours: Temp Pulse Resp BP Pulse Ox 97.7 F 63 18 159/77 H 96 05/21/20 11:15 05/21/20 11:15 05/21/20 11:15 05/21/20 11:15 05/21/20 11:15 Laboratory Results - last 24 hr 05/20/20 15:48: POC Glucose 109 05/20/20 16:54: Chlamy pneumoniae PCR Not detected, Adenovirus (PCR) Not detected, B. pertussis DNA (PCR) Not detected, Coronavirus OC43 (PCR) Not detected, Coronavirus HKU1 (PCR) Not detected, Coronavirus 229E (PCR) Not detected, SARS-CoV-2 (PCR) Not detected, Coronavirus NL63 (PCR) Not detected, Human Metapneumovir PCR Not detected, Influenza A (H1) PCR Not detected, Influ A (H1N1/09) PCR Not detected, Influenza A (H3) PCR Not detected, Influenza Type A (PCR) Not detected, Influenza Type B (PCR) Not detected, M. pneumoniae (PCR) Not detected, Parainfluenza 1 (PCR) Not detected, Parainfluenza 2 (PCR) Not detected, Parainfluenza 3 (PCR) Not detected, Parainfluenza 4 (PCR) Not detected, RSV (PCR) Not detected, Entero/Rhino (PCR) Not detected 05/20/20 20:30: POC Glucose 104 05/21/20 06:08: POC Glucose 106 05/21/20 06:12: WBC 5.5, RBC 3.99 L, Hgb 11.4 L, Hct 35.7 L, MCV 89.3, MCH 28.5, MCHC 31.9, RDW 15.1, Plt Count 114 L, MPV 9.0, Neut % (Auto) 64.8, Lymph % (Auto) 27.1, Grady % (Auto) 4.6, Eos % (Auto) 3.0, Baso % (Auto) 0.4, Neut # (Auto) 3.6, Lymph # (Auto) 1.5, Grady # (Auto) 0.3, Eos # (Auto) 0.2, Baso # (Auto) 0.0 05/21/20 06:12: Sodium 141, Potassium 3.9, Chloride 109 H, Carbon Dioxide 25, Anion Gap 10.9, BUN 17, Creatinine 1.00, Estimated Creat Clear 81, Estimated GFR 55 L, Est GFR ( Amer) 67 D, Glucose 114 H, Calcium 9.2 05/21/20 06:12: Triglycerides 139, Cholesterol 112 L, LDL Cholesterol Direct 36.22 L, VLDL Cholesterol 28, HDL Cholesterol 39 L, Cholesterol/HDL Ratio 2.9 05/21/20 09:41: POC Glucose 104 05/21/20 11:10: POC Glucose 95 I & O for Last 24 hours: Intake & Output 05/18/20 05/19/20 05/20/20 05/21/20 22:59 23:59 23:59 23:59 Intake Total 2395 / 2395 300 / 300 Output Total 250 / 250 250 / 250 Balance 2145 / 2145 50 / 50 Weight 96.644 kg 94.971 kg Assessment and Plan (1) HTN (hypertension) Status: Chronic Category: Medical Code(s): I10 - Essential (primary) hypertension (2) Hyperlipidemia Status: Chronic Category: Medical Code(s): E78.5 - Hyperlipidemia, unspecified (3) Acute kidney injury Status: Acute Category: Medical Code(s): N17.9 - Acute kidney failure, unspecified (4) Contusion of left hip Status: Acute Qualifiers: Encounter type: initial encounter Qualified Code(s): S70.02XA - Contusion of left hip, initial encounter Category: Medical Code(s): S70.02XA - Contusion of left hip, initial encounter (5) Fracture of proximal phalanx of digit of hand Status: Acute Category: Medical Code(s): S62.619A - Displaced fracture of proximal phalanx of unspecified finger, initial encounter for closed fracture (6) Gait instability Status: Acute Category: Medical Code(s): R26.81 - Unsteadiness on feet (7) Knee contusion Status: Acute Qualifiers: Encounter type: initial encounter Laterality: right Qualified Code(s): S80.01XA - Contusion of right knee, initial encounter Category: Medical Code(s): S80.00XA - Contusion of unspecified knee, initial encounter (8) Multiple falls Status: Acute Category: Medical Code(s): R29.6 - Repeated falls (9) Skin tear of forearm without complication Status: Acute Qualifiers: Encounter type: initial encounter Laterality: right Qualified Code(s): S51.811A - Laceration without foreign body of right forearm, initial encounter Category: Medical Code(s): S51.819A - Laceration without foreign body of unspecified forearm, initial encounter (10) Obesity (BMI 30-39.9) Status: Acute Category: Medical Code(s): E66.9 - Obesity, unspecified (11) Anemia Status: Acute
[2020-05-21 16:56] LABS: POC Glucose,Bedside 101 (70-110)
--- NOTE | 2020-05-21 23:05 | PC.NURSE ---
Waiting for [facility]. Pt is currently resting in bed at this time. No needs voiced. Medications administered per may. Pt currently does not have IV access. VSS. Will continue to monitor.
[2020-05-21 23:10] LABS: POC Glucose,Bedside 86 (70-110)
--- NOTE | 2020-05-22 02:39 | PC.NURSE ---
Pt left floor accompanied by [facility] @ [phone].
== END 2020-05-22 01:33 ==
LOC: ER 11:41 → 2ND 11:46
PROVIDERS: Nurse Practitioner Family; Orthopaedic Surgery; Admitting Provider Emergency Medicine; Emergency Provider Emergency Medicine; PCP Emergency Medicine; Visit Provider Emergency Medicine
PROC: 0PSV34Z Reposition Left Finger Phalanx with Internal Fixation Device, Percutaneous Approach (ICD-10-PCS; CPT 26727; principal; 2020-05-21 08:00)
DX: S62.615A Displaced fracture of proximal phalanx of left ring finger, initial encounter for closed fracture (principal); E11.22 Type 2 diabetes mellitus with diabetic chronic kidney disease; Z79.4 Long term (current) use of insulin; R29.6 Repeated falls; Z91.81 History of falling; N18.2 Chronic kidney disease, stage 2 (mild); I13.0 Hypertensive heart and chronic kidney disease with heart failure and stage 1 through stage 4 chronic kidney disease, or unspecified chronic kidney disease; I50.9 Heart failure, unspecified; I25.2 Old myocardial infarction; Z88.8 Allergy status to other drugs, medicaments and biological substances; Z79.899 Other long term (current) drug therapy; R26.81 Unsteadiness on feet; I49.8 Other specified cardiac arrhythmias; W18.39XA Other fall on same level, initial encounter; Y92.099 Unspecified place in other non-institutional residence as the place of occurrence of the external cause
CPT/HCPCS: 26727; 36415; 70450; 71045; 73130; 73140; 73502; 73562; 80048; 80053; 80061; 81001; 82962; 84484; 85025; 87086; 87581; 87633; 87798; 93005; 93270; 93306; 96365; 96374; 97116; 97162; 97530; 99285; G0378; J2405; U0003

== ENCOUNTER → 2020-05-31 12:35 | Outpatient (CLI) | payer MEDICARE, OTHER, SELFPAY ==
--- NOTE | 2020-05-31 12:39 | XR_ITS ---
PROCEDURE: XR HAND LT MIN 3V CLINICAL INDICATION: s/p LT proximal phalalnx Follow-up fracture COMPARISON: CR XR HAND LT MIN 3V from 05/17/2020 FINDINGS: There are 2 K-wires crossing 1 another along the proximal aspect of the proximal phalanx of the 4th finger stabilizing previously noted fracture at this region. There is minimal anterior displacement of the distal fracture fragment with good alignment. Overlying splint obscures some of the bony detail. Other findings:None. IMPRESSION: Good alignment status post ORIF proximal phalangeal fracture of the 4th digit Dictated by: Manan Haro MD 05/31/2020 16:02 Manan Haro MD in OV 05/31/2020 16:02
== END ==
PROVIDERS: PCP Emergency Medicine; Visit Provider Orthopaedic Surgery
DX: Z09 Encounter for follow-up examination after completed treatment for conditions other than malignant neoplasm (principal); S62.619A Displaced fracture of proximal phalanx of unspecified finger, initial encounter for closed fracture
CPT/HCPCS: 73130

== ENCOUNTER → 2020-06-05 06:55 | Outpatient (CLI) | payer MEDICARE, OTHER, SELFPAY ==
--- NOTE | 2020-06-05 | CA_ITS ---
APPROVED REPORT Exam: Pharmacologic Technologist: Stacy Guo Ht: 5 ft 8 in Wt: 205 lbs BSA: 2.07 m2 HR: 56 bpm BP: 118/66 mmHg Indications: Shortness of Air, Abnormal EKG Medical History Medications: Amlodipine,,,,, Lisinopril,,,,, Omeprazole,,,,, Aspirin,,,,, Metformin,,,,, Gabapentin,,,,, Vitamin D3,,,,, Tylenol,,,,, CloPIdogrel,,,,, DOxepin,,,,, BuPROPION,,,,, Sertraline,,,,, Stress Test Details Test: LEXISCAN HR Resting HR: 58 bpm Max Heart Rate (APMHR): 152 bpm Max HR Achieved: 80 bpm Target HR (85% APMHR): 129 bpm % of APMHR: 52 Recovery HR: 68 bpm BP Resting BP: 118.0/66.0 mmHg Max BP: 135.0/56.0 mmHg Recovery BP: 114.0/52.0 mmHg ECG Resting ECG: Irregular narrow complex bradycardia rhythm, old anteroseptal OK, low voltage QRS Clinical Exercise duration: 04:13 min Highest Stage Achieved: Exercise capacity: 1.0 METs Stress ECG Conclusion Symptoms: Mild shortness of air. No chest pain Arrhythmias/Ectopy: Occasional PVC ST-T Changes: No significant changes. Conclusion: Unremarkable Lexiscan stress. Myoview images reported separately. Electronically signed by : Pineda Thomas, 06/06/2020 12:53:29
--- NOTE | 2020-06-05 07:05 | NM_ITS ---
APPROVED REPORT Exam: Nuclear Stress Test Indication: HTN, DM, HYPERLIPIDEMIA, FM HX, C.P., SOB, ABN EKG Patient Location: Outpatient Stress Tech: Stacy Guo ID Tech:Malka Mock, ARRT, RT (R)(N) Ht: 5 ft 8 in Wt: 205 lbs Bra Size: 44DD HR: 56 bpm BP: 118/66 mmHg BSA: 2.07 m2 BMI: 31.1 History: HTN, DM, HYPERLIPIDEMIA, FM HX, C.P., SOB, ABN Procedure: Patient received a 0.4 mg of intravenous Lexiscan, resting heart rate 56 bpm, resting blood pressure 118/66 mmHg, with Lexiscan maximum heart rate achived was 71 bpm which is Less than 85 % of the maximum predicted heart rate and blood pressure was 1111/52 mmHg. With Lexiscan, patient denied any complaint of chest pain. Electrocardiogram Resting electrocardiogram showed sinus rhythm, with Lexiscan there is less than 1.[address] segment depression noted from the baseline EKG. The EKG portion of the Lexiscan is nondiagnostic. Cardiac Stress and Resting SPECT Images: Cardiac Stress and Resting SPECT images were obtained using technetium 99m Myoview 32.1 mCi stress and 10.76 mCi at rest. Gated SPECT for analysis of segmental wall motion and calculation of the ejection fraction also done. Cardiac stress and resting SPECT images show reversible ischemia involving the anterior apical and anteroseptal wall, computer derived ejection fraction is 60% with no regional wall motion abnormality, right ventricle is normal size and contractility. This study is technically limited due to patient's body habitus. Conclusion: 1. The EKG portion of the Lexiscan is nondiagnostic. 2. Scintigraphic evidence of reversible ischemia involving the anterior apical and anteroseptal wall, computer derived ejection fraction is 60% with no regional wall motion abnormality, right ventricle is normal size and contractility. This study is technically limited due to patient's body habitus. 3. Likely abnormal Lexiscan Myoview study. Electronically signed by : Pineda Thomas, 06/06/2020 14:12:44
--- NOTE | 2020-06-05 08:44 | HMH.ITSHM ---
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 []SERTRALINE LISINOPRIL INSULIN LACTULOSE DOXEPIN HYDROCODONE CLOPIDOGREL GABAPENTIN CALCIUM ASA ARIPIPRAZOLE BURPROPION ATORVASTATIN AMLODIPINE TRAZODONE OXYBUTYNIN OMEPRAZOLE METFORMIN
== END ==
PROVIDERS: PCP Emergency Medicine; Visit Provider Nurse Practitioner Family
DX: R07.89 Other chest pain (principal); R94.31 Abnormal electrocardiogram [ECG] [EKG]
CPT/HCPCS: 78452; 93017; A9502; J2785

== ENCOUNTER → 2020-06-17 11:16 | Outpatient (CLI) | payer MEDICARE, MEDICAID, SELFPAY ==
[2020-06-17 12:05] LABS: Basophils % 0.4 % (0.1-2.0); Eosinophils # 0.2 K/mm3 (0.0-0.4); Eosinophils % 2.5 % (0.1-12.0); Hematocrit 38.8 % (37.0-47.0); Hemoglobin 12.9 g/dL (12.2-16.2); Lymphocytes # 1.4 K/mm3 (0.7-4.5); Lymphocytes % 16.2 % (10-50); Mean Corpuscular HGB Conc 33.1 g/dL (31.8-35.4); Mean Corpuscular Hemoglobin 28.9 pg (27.0-31.2); Mean Corpuscular Volume 87.2 fl (81-99); Mean Platelet Volume 9.7 fl (7.4-10.4); Monocytes # 0.4 K/mm3 (0.1-1.0); Monocytes % 4.5 % (1.7-9.3); Neutrophils # 6.4 K/mm3 (1.8-7.8); Neutrophils % 76.4 % (37.0-80.0); Platelet Count 152 K/mm3 (142-424); Red Blood Count 4.45 M/mm3 (4.20-5.40); White Blood Count 8.4 K/mm3 (4.8-10.8)
[2020-06-17 12:46] LABS: Chloride 108 mmol/L (98-107); Potassium 4.4 mmoL/L (3.5-5.1); Sodium 142 mmol/L (136-145)
[2020-06-17 12:49] LABS: Anion Gap 12.4 mEq/L (5-15); Blood Urea Nitrogen 19 mg/dl (7-17); Carbon Dioxide 26 mmol/L (22.0-30.0); Estimated Glomerular Filt Rate 45 ml/min (>60); GFR (African American) 54 ML/MIN (>60)
[2020-06-17 12:50] LABS: Calcium 10.4 mg/dl (8.4-10.2); Glucose 117 mg/dl (74-100)
[2020-06-19 14:11] LABS: Coronavirus 19 IgG Antibody Positive (Negative); Coronavirus 19 IgM Antibody Negative (Negative)
== END ==
PROVIDERS: Internal Medicine; Visit Provider Nurse Practitioner Family
DX: E78.2 Mixed hyperlipidemia (principal); I51.89 Other ill-defined heart diseases; R06.02 Shortness of breath; Z01.812 Encounter for preprocedural laboratory examination; Z20.822 Contact with and (suspected) exposure to COVID-19
CPT/HCPCS: 36415; 80048; 85025; 86328

== ENCOUNTER 2020-06-21 08:34 | Day surgery (SDC) | payer MEDICARE, MEDICAID, SELFPAY ==
[2020-06-21] VITALS (16 sets, daily range): BP systolic 87–142; BP diastolic 45–77; PULSE 52–79; RESP 16–20; TEMP 36.6; O2SAT 93–100; BMI 31.1
--- NOTE | 2020-06-21 | IR_ITS ---
APPROVED REPORT Patient Location: Outpatient PROCEDURES Left heart catheterization Left ventriculogram Selective coronary angiogram INDICATION Angina pectoris, High risk Myoview Informed consent was obtained prior to the procedure. COMPLICATIONS None Estimated Blood Loss: Less than 10 mls TECHNIQUE One percent lidocaine used to anesthetize the right anterior aspect of the wrist. The right radial artery was accessed via the Seldinger technique. A 6 Argentine sheath was placed in the right radial artery. 2.5 mg of verapamil, 800 mcg of nitroglycerin, 1mg Lidocaine and 5000 U Heparin were given through the arterial sheath. The trap catheter was also used to perform left heart catheterization, left ventriculogram and selective coronary angiogram. At the end of the procedure the sheath was removed good hemostasis was achieved using Traclet band, patient was transferred to the postop holding area in stable condition. ANGIOGRAPHIC RESULTS The left main artery Normal The left anterior descending artery Is proximally normal with mid vessel 10% stenoses The circumflex artery Normal The right coronary artery Dominant with proximal and distal 10% luminal irregularities The NUNN ventriculogram reveals Normal 65% The left ventricular end-diastolic pressure Normal 10 mmHg IMPRESSION Mild nonflow limiting coronary disease Normal ejection fraction Normal left ventricular end-diastolic pressure PLAN 1. Noncardiac symptoms evaluation Electronically signed by : Venkat Amato, 06/21/2020 10:46:47
== END 2020-06-21 14:03 | disposition home or self-care (01) ==
LOC: CATHLAB 08:36
PROVIDERS: PCP Emergency Medicine; Visit Provider Internal Medicine
DX: I25.118 Atherosclerotic heart disease of native coronary artery with other forms of angina pectoris (principal); R94.39 Abnormal result of other cardiovascular function study; I10 Essential (primary) hypertension; Z79.4 Long term (current) use of insulin; Z79.82 Long term (current) use of aspirin; E11.9 Type 2 diabetes mellitus without complications; E78.5 Hyperlipidemia, unspecified; R06.02 Shortness of breath; Z88.8 Allergy status to other drugs, medicaments and biological substances; Z79.899 Other long term (current) drug therapy
CPT/HCPCS: 93458; 99152; C1725; C1769; J1644; Q9967

== ENCOUNTER → 2020-06-24 13:54 | Outpatient (CLI) | payer MEDICARE, MEDICAID, SELFPAY ==
--- NOTE | 2020-06-24 13:57 | XR_ITS ---
PROCEDURE: XR HAND LT MIN 3V CLINICAL INDICATION: LT hand fracture Follow-up fracture COMPARISON: CR XR HAND LT MIN 3V from 05/17/2020 CR XR HAND LT MIN 3V from 05/31/2020 FINDINGS: There are 2 crossing K-wires in place stabilizing the fracture at the proximal aspect of the proximal phalanx of the 4th digit. There is only minimal lateral displacement of the distal fracture fragment. Splint has been removed. Metallic artifact from ring is present along the proximal phalanx of the 3rd digit. Osteoarthritic changes are present at the 1st carpal metacarpal joint. There is also widening of the scapholunate space. Osteoarthritic changes are present at the radiocarpal joint. IMPRESSION: Good alignment healing 4th proximal phalanx fracture status post pinning Dictated by: Manan Haro MD 06/24/2020 17:02 Manan Haro MD in [place] 06/24/2020 17:02
== END ==
PROVIDERS: PCP Emergency Medicine; Visit Provider Orthopaedic Surgery
DX: S62.619A Displaced fracture of proximal phalanx of unspecified finger, initial encounter for closed fracture (principal)
CPT/HCPCS: 73130

== ENCOUNTER 2020-07-05 15:10 | Emergency (ER) | payer MEDICARE, MEDICAID, SELFPAY ==
[2020-07-05] VITALS (12 sets, daily range): BP systolic 104–137; BP diastolic 47–71; PULSE 59–98; RESP 16–18; TEMP 36.6; O2SAT 92–98; BMI 30.1
--- NOTE | 2020-07-05 15:09 | PC.NURSE ---
ROLF Ayon at bedside with pt at this time. Clothing and jewelry removed and pt placed in gown.
--- NOTE | 2020-07-05 15:25 | PC.NURSE ---
MD Harden request medical records from [facility]. ROLF Joseph attempting to call at this time.
--- NOTE | 2020-07-05 16:38 | HMH.EDGENADL ---
ED Disposition Clinical Impression: Suicidal ideation Disposition: Xfer Psychiatric Hosp Condition on Discharge: Good Referrals: Rainer Asher MD [Staff Physician] - - Critical Care Critical Care Time: No Attestation: On 07/05/20, the high probability of a clinically significant, sudden or life threatening deterioration of the following system(s) required my full and direct attention, intervention and personal management. The time I documented below is in addition to time spent performing reported procedures but includes the following listed in this critical care notation. Medical Decision Making - Kristopher Inquiry Pt receiving controlled substance: No Vital Signs: 07/05/20 15:15 07/05/20 17:20 07/05/20 17:52 Temperature 97.8 F Temperature Source Oral Pulse Rate 75 Pulse Rate [Left Radial] 80 62 Respiratory Rate 16 16 Blood Pressure 116/66 Blood Pressure [Right Arm] 126/60 119/61 Blood Pressure Mean [Right Arm] 82 80 Blood Pressure Source Automatic Cuff Blood Pressure Source [Right Arm] Automatic Cuff Blood Pressure Position Blood Pressure Position [Right Arm] Supine 02 Sat by Pulse Oximetry 97 98 97 Oxygen Delivery Method Room Air Room Air Room Air 07/05/20 18:28 07/05/20 19:01 07/05/20 19:18 Temperature Temperature Source Pulse Rate 59 L 70 98 H Pulse Rate [Left Radial] Respiratory Rate 18 Blood Pressure 133/67 127/67 132/68 Blood Pressure [Right Arm] Blood Pressure Mean [Right Arm] Blood Pressure Source Automatic Cuff Automatic Cuff Automatic Cuff Blood Pressure Source [Right Arm] Blood Pressure Position Supine Supine Supine Blood Pressure Position [Right Arm] 02 Sat by Pulse Oximetry 97 93 L Oxygen Delivery Method Room Air Room Air 07/05/20 19:31 07/05/20 19:46 Temperature Temperature Source Pulse Rate 62 61 Pulse Rate [Left Radial] Respiratory Rate Blood Pressure 134/61 122/61 Blood Pressure [Right Arm] Blood Pressure Mean [Right Arm] Blood Pressure Source Blood Pressure Source [Right Arm] Blood Pressure Position Supine Blood Pressure Position [Right Arm] 02 Sat by Pulse Oximetry Oxygen Delivery Method - Lab Data Lab Results 07/05/20 17:54: WBC 6.3, RBC 4.36, Hgb 12.9, Hct 39.3, MCV 90.0, MCH 29.5, MCHC 32.7, RDW 14.7, Plt Count 146, MPV 8.8, Neut % (Auto) 68.1, Lymph % (Auto) 25.5, [place] % (Auto) 3.7, Eos % (Auto) 2.0, Baso % (Auto) 0.7, Neut # (Auto) 4.3, Lymph # (Auto) 1.6, [place] # (Auto) 0.2, Eos # (Auto) 0.1, Baso # (Auto) 0.0 07/05/20 17:54: Sodium 143, Potassium 4.6, Chloride 106, Carbon Dioxide 28, Anion Gap 13.6, BUN 29 H, Creatinine 1.50 H, Estimated Creat Clear 51, Estimated GFR 35 L, Est GFR ( Amer) 42 L, Glucose 118 H, Calcium 10.2, Total Bilirubin 0.6, AST 35, ALT 17, Alkaline Phosphatase 158 H, Total Protein 7.8, Albumin 4.4, Globulin 3.4 H, Albumin/Globulin Ratio 1.3, Salicylates < 1.0 L, Acetaminophen < 10 L 07/05/20 17:54: Plasma/Serum Alcohol < 10 07/05/20 19:17: Urine Color Yellow, Urine Appearance Sl cloudy, Urine pH 5.5, Ur Specific [place] >= 1.030, Urine Protein Negative, Urine Glucose (UA) Negative, Urine Ketones Trace, Urine Blood Trace-i, Urine Nitrate Positive, Urine Bilirubin Negative, Urine Urobilinogen 1.0, Ur Leukocyte Esterase 2+ A, Urine RBC 3-5, Urine WBC 20-50, Ur Squamous Epith Cells 5-10, Urine Bacteria 3+, Urine Mucus 1+ 07/05/20 19:17: Urine Opiates Screen Positive H, Urine Methadone Screen Negative, Ur Barbituates Screen Negative, Ur Phencyclidine Scrn Negative, Ur Amphetamines Screen Negative, U Benzodiazepines Scrn Negative, Urine Cocaine Screen Negative, U Marijuana (THC) Screen Negative Result diagrams: 07/05/20 17:54 07/05/20 17:54 Orders (Tests/Meds): ORDERS Category Date Time Status Covid-19 Nasal PCR ([facility]) Routine Lab 07/05/20 17:30 Received Urine Culture Stat Micro 07/05/20 19:17 Received - ECG Data Tracing #1 EKG interpreted by Barron
--- NOTE | 2020-07-05 17:10 | PC.NURSE ---
[employer] officer present, attempting to get hold paperwork signed by driller helper.
--- NOTE | 2020-07-05 17:28 | PC.NURSE ---
ROLF Padron speaking with nursing staff at [facility] at this time.
--- NOTE | 2020-07-05 17:31 | PC.NURSE ---
COVID test being sent to lab at this time.
--- NOTE | 2020-07-05 17:38 | PC.NURSE ---
spoke with [facility], staff requesting a covid swab on pt.
[2020-07-05 18:05] LABS: Basophils % 0.7 % (0.1-2.0); Eosinophils # 0.1 K/mm3 (0.0-0.4); Hematocrit 39.3 % (37.0-47.0); Hemoglobin 12.9 g/dL (12.2-16.2); Lymphocytes # 1.6 K/mm3 (0.7-4.5); Lymphocytes % 25.5 % (10-50); Mean Corpuscular HGB Conc 32.7 g/dL (31.8-35.4); Mean Corpuscular Hemoglobin 29.5 pg (27.0-31.2); Mean Platelet Volume 8.8 fl (7.4-10.4); Monocytes # 0.2 K/mm3 (0.1-1.0); Monocytes % 3.7 % (1.7-9.3); Neutrophils # 4.3 K/mm3 (1.8-7.8); Neutrophils % 68.1 % (37.0-80.0); Platelet Count 146 K/mm3 (142-424); Red Blood Count 4.36 M/mm3 (4.20-5.40); Red Cell Distribution Width 14.7 % (11.5-17.5); White Blood Count 6.3 K/mm3 (4.8-10.8)
--- NOTE | 2020-07-05 18:14 | ECG_ITS ---
APPROVED REPORT Exam: Resting ECG HR:59 bpm ECG Measurements Heart Rate 59 AXES AL 138 P -6 QRSd 74 QRS -23 QT 444 T 48 QTc 439 Conclusion Sinus bradycardia Low voltage QRS Septal and inferior changes are old Abnormal ECG Electronically signed by : Rainer Asher, 07/06/2020 08:44:52
[2020-07-05 18:21] LABS: Alanine Aminotransferase 17 U/L (12-78); Albumin Level 4.4 g/dl (3.5-5.0); Albumin/Globulin Ratio 1.3 (1.1-1.8); Alkaline Phosphatase 158 U/L (38-126); Anion Gap 13.6 mEq/L (5-15); Aspartate Amino Transferase 35 U/L (14-36); Bilirubin,Total 0.6 mg/dl (0.2-1.3); Blood Urea Nitrogen 29 mg/dl (7-17); Calcium 10.2 mg/dl (8.4-10.2); Carbon Dioxide 28 mmol/L (22.0-30.0); Chloride 106 mmol/L (98-107); Creatinine Clearance Estimated 51 mL/min (50-200); Estimated Glomerular Filt Rate 35 ml/min (>60); GFR (African American) 42 ML/MIN (>60); Globulin 3.4 g/dL (1.3-3.2); Glucose 118 mg/dl (74-100); Potassium 4.6 mmoL/L (3.5-5.1); Sodium 143 mmol/L (136-145); Total Protein,Serum 7.8 g/dl (6.3-8.2)
[2020-07-05 18:22] LABS: Acetaminophen < 10 ug/ml (10-30); Ethyl Alcohol < 10 mg/dl (0-10); Salicylate < 1.0 mg/dL (2.0-20.0)
[2020-07-05 19:22] LABS: Microscopic, Urine URINE MICROSCOPIC (MICROSCOPIC)
--- NOTE | 2020-07-05 19:23 | PC.NURSE ---
face sheet, ekg, cbc, cmp, toxicity results faxed to [facility] at this time. Waiting on covid swab results-will fax when resulted
[2020-07-05 19:24] LABS: Appearance,Urine SL CLOUDY (Clear); Blood, Urine TRACE-I (Negative); Color,Urine YELLOW (Yellow); Glucose,Urine (UA) Negative (Negative); Ketones,Urine TRACE (Negative); Leukocyte Esterase,Urine 2+ (Negative); Nitrate,Urine POSITIVE (Negative); PH,Urine 5.5 (5.0-8.5); Protein,Urine Negative (Negative); Specific Gravity, Urine >= 1.030 (1.005-1.030)
--- NOTE | 2020-07-05 19:29 | PC.NURSE ---
per lab approx 45 mins left on covid swab
[2020-07-05 19:34] LABS: Bilirubin,Urine Negative (Negative)
[2020-07-05 19:35] LABS: WBC,Urine 20-50 #/hpf (0-3)
[2020-07-05 19:36] LABS: Amphetamine/Metha Screen,Urine Negative ng/ml (<1000); Bacteria,Urine 3+ /lpf; Mucus,Urine 1+ /lpf
[2020-07-05 19:37] LABS: Barbiturates Screen,Urine Negative ng/ml (<200)
[2020-07-05 19:38] LABS: Benzodiazepines Screen,Urine Negative ng/ml (<200); Cannabinoid Screen,Urine Negative ng/ml (<50)
[2020-07-05 19:39] LABS: Cocaine Screen,Urine Negative ng/ml (<300)
[2020-07-05 19:40] LABS: Methadone Screen,Urine Negative ng/ml (<300); Opiate Screen,Urine Positive ng/ml (<300)
[2020-07-05 19:41] LABS: Phencyclidine Screen,Urine Negative ng/ml (<25)
--- NOTE | 2020-07-05 20:13 | PC.NURSE ---
severo GARCIA called for transport
== END 2020-07-05 20:39 ==
PROVIDERS: Emergency Provider Emergency Medicine; PCP Emergency Medicine
DX: T14.91XA Suicide attempt, initial encounter (principal); X78.8XXA Intentional self-harm by other sharp object, initial encounter; N30.00 Acute cystitis without hematuria; B96.20 Unspecified Escherichia coli [E. coli] as the cause of diseases classified elsewhere; Y92.129 Unspecified place in nursing home as the place of occurrence of the external cause; J44.9 Chronic obstructive pulmonary disease, unspecified; E11.9 Type 2 diabetes mellitus without complications; K21.9 Gastro-esophageal reflux disease without esophagitis; I50.9 Heart failure, unspecified; Z20.822 Contact with and (suspected) exposure to COVID-19; I25.2 Old myocardial infarction; E78.5 Hyperlipidemia, unspecified; Z86.73 Personal history of transient ischemic attack (TIA), and cerebral infarction without residual deficits; Z79.899 Other long term (current) drug therapy
CPT/HCPCS: 80053; 80305; 80329; 81001; 85025; 87086; 87088; 87186; 93005; 99284; U0003

== ENCOUNTER → 2020-07-15 08:46 | Outpatient (CLI) | payer MEDICARE, MEDICAID, OTHER, SELFPAY ==
--- NOTE | 2020-07-15 08:55 | XR_ITS ---
PROCEDURE: XR HAND LT MIN 3V CLINICAL INDICATION: left hand fracture COMPARISON: CR XR HAND LT MIN 3V from 05/17/2020 CR XR HAND LT MIN 3V from 05/31/2020 CR XR HAND LT MIN 3V from 06/24/2020 FINDINGS: Interval removal of the orthopedic hardware is noted. Minimally displaced healing fracture of the diaphysis of the proximal phalanx of the 4th digit. Soft tissue swelling of the 4th digit is noted. Mild osteopenia. Degenerative changes of the 1st CMC joint is noted. No significant soft tissue abnormality is noted. IMPRESSION: Minimally displaced healing fracture of the proximal phalanx of the 4th digit. Dictated by: Dodie Higgins 07/15/2020 10:56 Dodie Higgins in [place] 07/15/2020 10:56
== END ==
PROVIDERS: PCP Emergency Medicine; Visit Provider Orthopaedic Surgery
DX: M79.642 Pain in left hand (principal)
CPT/HCPCS: 73130

== ENCOUNTER → 2020-07-27 06:53 | Outpatient (CLI) | payer MEDICARE, MEDICAID, SELFPAY ==
[2020-07-27 07:13] LABS: Microscopic, Urine URINE MICROSCOPIC (MICROSCOPIC)
[2020-07-27 07:33] LABS: Appearance,Urine CLEAR (Clear); Bilirubin,Urine Negative (Negative); Blood, Urine Negative (Negative); Color,Urine YELLOW (Yellow); Glucose,Urine (UA) Negative (Negative); Ketones,Urine Negative (Negative); Leukocyte Esterase,Urine 1+ (Negative); Nitrate,Urine Negative (Negative); Protein,Urine Negative (Negative); Specific Gravity, Urine 1.015 (1.005-1.030)
[2020-07-27 07:55] LABS: Amorphous Sediment,Urine 1+ /lpf
== END ==
PROVIDERS: PCP Emergency Medicine; Visit Provider Emergency Medicine
DX: R31.9 Hematuria, unspecified (principal); N39.0 Urinary tract infection, site not specified
CPT/HCPCS: 81001; 87086; 87088; 87186

== ENCOUNTER → 2020-09-06 09:35 | Outpatient (CLI) | payer MEDICARE, MEDICAID, SELFPAY ==
--- NOTE | 2020-09-06 09:38 | XR_ITS ---
PROCEDURE: XR HAND LT MIN 3V CLINICAL INDICATION: s/p CRPP L ring finger PP fx COMPARISON: CR XR HAND LT MIN 3V from 05/17/2020 CR XR HAND LT MIN 3V from 05/31/2020 CR XR HAND LT MIN 3V from 06/24/2020 CR XR HAND LT MIN 3V from 07/15/2020 FINDINGS: Minimally displaced fracture involves the proximal aspect of the proximal phalanx of the 4th digit. The distal fracture fragment is displaced laterally by 2 mm. This is not significantly changed. Fracture line remains visible although somewhat less distinct compared to the previous exam. Ring artifact noted along the proximal phalanx of the 1st digit and proximal phalanx of the 2nd digit. Osteoarthritic changes 1st metacarpal-carpal joint. Other findings:None. IMPRESSION: Healing fracture proximal phalanx 4th digit as described Dictated by: Manan Haro MD 09/06/2020 10:01 Manan Haro MD in [place] 09/06/2020 10:01
== END ==
PROVIDERS: PCP Emergency Medicine; Visit Provider Orthopaedic Surgery
DX: S62.619A Displaced fracture of proximal phalanx of unspecified finger, initial encounter for closed fracture (principal)
CPT/HCPCS: 73130

== ENCOUNTER 2020-09-12 03:19 | Emergency (ER) | payer MEDICARE, MEDICAID, SELFPAY ==
[2020-09-12 03:19] VITALS: BP 132/60; PULSE 61; RESP 16; TEMP 36.6; O2SAT 100; BMI 34.0
--- NOTE | 2020-09-12 03:27 | HMH.EDGENADL ---
ED Disposition Clinical Impression: Traumatic hematoma of forehead Qualifiers: Encounter type: initial encounter Qualified Code(s): S00.83XA - Contusion of other part of head, initial encounter Puncture wound of forehead Qualifiers: Encounter type: initial encounter Qualified Code(s): S01.83XA - Puncture wound without foreign body of other part of head, initial encounter Contusion of right hip Qualifiers: Encounter type: initial encounter Qualified Code(s): S70.01XA - Contusion of right hip, initial encounter Disposition: Home, Self-Care Condition on Discharge: Good Instructions: DI for Hematoma (Bruise), How to Prevent Falls, DI for Closed Head Injury Additional Instructions: Ice 20 minutes 4-5 times a day to reduce swelling. Expect to develop black eyes bilaterally. Tylenol as needed for pain. Additional instructions for HEAD INJURY: Return immediately if severe headache, vomiting, problems with vision or speech, numbness or weakness of the extremities, or severe neck pain. Referrals: Marcio Rodriguez MD [Primary Care Provider] - - Critical Care Critical Care Time: No Attestation: On , the high probability of a clinically significant, sudden or life threatening deterioration of the following system(s) required my full and direct attention, intervention and personal management. The time I documented below is in addition to time spent performing reported procedures but includes the following listed in this critical care notation. Medical Decision Making - Medical Records Medical records reviewed: Yes: I reviewed the patient's medical records. MR Comment: Her in May for multiple falls. At that time was a resident of [facility]. Discharged to [facility] because of the multiple falls, no longer appropriate for [facility]. - Kristopher Inquiry Pt receiving controlled substance: No Vital Signs: 09/12/20 03:19 09/12/20 03:31 Temperature 97.9 F Temperature Source Oral Pulse Rate 62 Pulse Rate [Left Radial] 61 Respiratory Rate 16 Blood Pressure 113/52 L Blood Pressure [Left Arm] 132/60 Blood Pressure Mean [Left Arm] 84 Blood Pressure Source [Left Arm] Automatic Cuff Blood Pressure Position [Left Arm] Supine 02 Sat by Pulse Oximetry 100 100 Oxygen Delivery Method Room Air Room Air - Lab Data Lab Results 09/12/20 03:27: POC Glucose 84 Orders (Tests/Meds): ORDERS Category Date Time Status Femur XR right 2 views [XR femur RT 2V] Stat Exams 09/12/20 04:16 Ordered XR hip RT 2-3V w/pelvis Stat Exams 09/12/20 04:16 Ordered - Radiology Data #1 Image(s): Hip, Femur Image Reviewed: Yes I reviewed the patient's radiology image Preliminary Findings: Normal/NAD - CT Data CT Scan: Head, C-Spine Time Received: 04:[address] Reviewed: Yes: I have viewed the radiologist's interpretation Findings Narrative: PROCEDURE INFORMATION: Exam: CT Cervical Spine Without Contrast Exam date and time: 09/12/2020 3:29 AM Age: 70 years old Clinical indication: Injury or trauma; Fall; Blunt trauma; Injury date: 09/12/2020; Injury details: Fell hematoma frontal head; Additional info: Head injury TECHNIQUE: Imaging protocol: Computed tomography images of the cervical spine without contrast. Radiation optimization: All CT scans at this facility use at least one of these dose optimization techniques: automated exposure control; mA and/or kV adjustment per patient size (includes targeted exams where dose is matched to clinical indication); or iterative reconstruction. COMPARISON: CT CERVICAL SPINE WO CON 05/13/2020 3:45 PM FINDINGS: Loss of normal curvature of the spine with degenerative spondylolisthesis. . Vertebral body height is normal without compression fracture or deformity. No evidence of a displaced fracture involving the vertebral bodies or their posterior elements. Facet joints are normally aligned without facetal
--- NOTE | 2020-09-12 03:29 | CT_ITS ---
PROCEDURE INFORMATION: Exam: CT Head Without Contrast Exam date and time: 09/12/2020 3:29 AM Age: 70 years old Clinical indication: Injury or trauma; Fall; Blunt trauma (contusions or hematomas); Without loss of consciousness; Injury date: 09/12/2020; Injury details: Fell hematoma frontal head; Additional info: Head injury TECHNIQUE: Imaging protocol: Computed tomography of the head without contrast. Radiation optimization: All CT scans at this facility use at least one of these dose optimization techniques: automated exposure control; mA and/or kV adjustment per patient size (includes targeted exams where dose is matched to clinical indication); or iterative reconstruction. COMPARISON: CT HEAD/BRAIN WO CON 05/17/2020 9:53 AM FINDINGS: Bilateral extensive periventricular lucencies with chronic appearing infarcts without intraparenchymal hemorrhage and no obvious acute ischemic stroke. No intra-or extra-axial fluid collection, no supra-or infratentorial mass, no mass effect or midline shift. . Dilated ventricles, sulci and basal cisterns due to generalized atrophy/chronic ischemic changes without evidence of hydrocephalus. Skull bones are normal. Mild sinonasal mucoperiosteal thickening. No mastoid effusion. . A large midline frontal scalp HEMATOMA. IMPRESSION: 1. Moderate to advanced chronic microvascular disease and generalized atrophy without acute intracranial abnormality. 2. No evidence of acute hemorrhage, mass lesion or obvious acute ischemic infarction. COMMENTS: Suboptimal study due to motion artifact.
--- NOTE | 2020-09-12 03:29 | CT_ITS ---
PROCEDURE INFORMATION: Exam: CT Cervical Spine Without Contrast Exam date and time: 09/12/2020 3:29 AM Age: 70 years old Clinical indication: Injury or trauma; Fall; Blunt trauma; Injury date: 09/12/2020; Injury details: Fell hematoma frontal head; Additional info: Head injury TECHNIQUE: Imaging protocol: Computed tomography images of the cervical spine without contrast. Radiation optimization: All CT scans at this facility use at least one of these dose optimization techniques: automated exposure control; mA and/or kV adjustment per patient size (includes targeted exams where dose is matched to clinical indication); or iterative reconstruction. COMPARISON: CT CERVICAL SPINE WO CON 05/13/2020 3:45 PM FINDINGS: Loss of normal curvature of the spine with degenerative spondylolisthesis. . Vertebral body height is normal without compression fracture or deformity. No evidence of a displaced fracture involving the vertebral bodies or their posterior elements. Facet joints are normally aligned without facetal dislocation or subluxation. . Chronic degenerative changes in the cervical spine. No fracture of the dens, chronic degenerative changes at the lateral C1-C2 articulation, atlantooccipital joints and central atlantodental joint. Pre-and paravertebral soft tissues are grossly normal. . Atherosclerotic calcification of the carotid arteries. IMPRESSION: Chronic degenerative changes without an acute cervical spine injury or abnormality.
--- NOTE | 2020-09-12 03:29 | PC.NURSE ---
FS 85
[2020-09-12 03:31] VITALS: BP 113/52; PULSE 62; O2SAT 100
[2020-09-12 03:35] LABS: POC Glucose,Bedside 84 (70-110)
--- NOTE | 2020-09-12 03:36 | PC.NURSE ---
pt gone to radiology at this time.
--- NOTE | 2020-09-12 04:16 | XR_ITS ---
PROCEDURE INFORMATION: Exam: XR Right Femur Exam date and time: 09/12/2020 4:16 AM Age: 70 years old Clinical indication: Injury or trauma; Fall; Blunt trauma; Thigh or upper leg; Right; Injury date: 09/12/2020; Patient HX: Fell bruises RT hip and femur TECHNIQUE: Imaging protocol: XR Right femur. Views: 2 views. COMPARISON: CR XR KNEE RT 3V 05/17/2020 10:04 AM FINDINGS: Osteopenia, chronic degenerative changes and extensive vascular calcification. Otherwise unremarkable appearing bones and joints without evidence of a fracture line. No discrete lytic or blastic lesion. IMPRESSION: Osteopenia, chronic degenerative changes without acute bony abnormality or injury.
--- NOTE | 2020-09-12 04:16 | XR_ITS ---
PROCEDURE INFORMATION: Exam: XR Right Hip Exam date and time: 09/12/2020 4:16 AM Age: 70 years old Clinical indication: Injury or trauma; Fall; Blunt trauma (contusions or hematomas); Right; Injury date: 09/12/2020; Patient HX: Fell bruises RT hip and RT femur TECHNIQUE: Imaging protocol: XR Right hip. Views: 2 or 3 views hip with pelvis when performed. COMPARISON: CR XR PELVIS 1-2V 12/17/2019 3:38 AM FINDINGS: Osteopenia, chronic degenerative changes in the lower lumbar spine, sacroiliac and hip joints. Otherwise unremarkable appearing bones and joints without evidence of a fracture line. No discrete lytic or blastic lesion. IMPRESSION: Osteopenia, chronic degenerative changes without acute bony abnormality or injury.
--- NOTE | 2020-09-12 05:01 | PC.NURSE ---
Called [facility] for transfer back to [place]. Also call [place] to update them on pt to transfer back to their facility, s/w Ele.
[2020-09-12 05:21] VITALS: BP 122/58; PULSE 60; RESP 18; TEMP 36.6; O2SAT 98
== END 2020-09-12 05:25 | disposition home or self-care (01) ==
PROVIDERS: Emergency Provider Emergency Medicine; PCP Emergency Medicine
DX: S00.83XA Contusion of other part of head, initial encounter (principal); S01.83XA Puncture wound without foreign body of other part of head, initial encounter; S70.01XA Contusion of right hip, initial encounter; W01.0XXA Fall on same level from slipping, tripping and stumbling without subsequent striking against object, initial encounter; Y92.129 Unspecified place in nursing home as the place of occurrence of the external cause; E11.9 Type 2 diabetes mellitus without complications; J44.9 Chronic obstructive pulmonary disease, unspecified; I50.9 Heart failure, unspecified; E78.5 Hyperlipidemia, unspecified; I10 Essential (primary) hypertension; K21.9 Gastro-esophageal reflux disease without esophagitis; F41.9 Anxiety disorder, unspecified; Z88.8 Allergy status to other drugs, medicaments and biological substances; Z79.899 Other long term (current) drug therapy
CPT/HCPCS: 70450; 72125; 73502; 73552; 82962; 99282; 99283

== ENCOUNTER 2020-09-25 13:02 | Emergency (ER) | payer MEDICARE, MEDICAID, SELFPAY ==
[2020-09-25 12:00] VITALS: BP 126/73; PULSE 65; RESP 18; TEMP 36.5; O2SAT 100; BMI 35.2
--- NOTE | 2020-09-25 12:52 | CT_ITS ---
PROCEDURE: CT CERVICAL SPINE WO CON CLINICAL INDICATION: fall, headstrike, on plavix COMPARISON: CT CT CERVICAL SPINE WO CON from 09/12/2020 TECHNIQUE: Axial images obtained with sagittal and coronal reformats. All CT scans at the facility use one or more dose reduction, viz: automated exposure control, ma/kV adjustment per patient size (including targeted exams where dose is matched to indication, i.e. head), or iterative reconstruction technique. Axial spiral CT scanning performed of the cervical spine beginning at the base of the skull and continuing to the upper T-spine. 3-D multiplanar reconstruction with 3-D manipulation of volumetric data set in image rendering was completed by the radiologist and/or technologist with the supervision of the radiologist on independent workstation. FINDINGS: C1 through C7 appear intact. However there is 4.3 mm anterior listhesis of C 4 on C5 probably related to arthritic changes of the apophyseal joints. There is no acute fracture. There is disc space narrowing at the C6-7 level with minimal anterior and posterior osteophytic spurring. The prevertebral soft tissues are normal and the odontoid is normal. The spinal canal is normal in size throughout. There is no obvious abnormal disc protrusion. 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 Dictated by: Dr. Celestino Nath MD 09/25/2020 13:35 Dr. Celestino Nath MD in [facility] 09/25/2020 13:35
--- NOTE | 2020-09-25 12:52 | CT_ITS ---
PROCEDURE: CT HEAD/BRAIN WO CON CLINICAL INDICATION: fall, headstrike, on plavix COMPARISON: CT CT HEAD/BRAIN WO CON from 09/12/2020 TECHNIQUE: Axial images obtained. All CT scans at the facility use one or more dose reduction, viz: automated exposure control, ma/kV adjustment per patient size (including targeted exams where dose is matched to indication, i.e. head), or iterative reconstruction technique. FINDINGS: No midline shift, mass effect, intracranial hemorrhage, hydrocephalus, or extra-axial fluid collection is evident. Scalp in the midline the forehead is again noted but has shown slight decrease in size previous study now measuring 2.9 cm transverse diameter where as previously measures 3.8 cm. The basilar cisterns are prominent. The sylvian fissures and cortical sulci are prominent. There are prominent bilateral periventricular hypodensities consistent with chronic ischemic white matter changes. There is mild diffuse ventriculomegaly. The temporal horns of the lateral ventricles are somewhat prominent a finding more commonly seen in the L sinus disease but not definitely diagnostic there of.. The calvarium has an unremarkable appearance there is no skull fracture. No mastoid effusion. No sinus air-fluid level. IMPRESSION: Findings of moderate cortical atrophy and prominent chronic ischemic bilateral periventricular white matter changes. Slight interval decrease in size of the scalp hematoma of the forehead when compared to the previous exam 09/12/2020 Dictated by: Dr. Celestino Nath MD 09/25/2020 13:30 Dr. Celestino Nath MD in [facility] 09/25/2020 13:30
[2020-09-25 13:00] VITALS: BP 128/62; PULSE 54; RESP 16; O2SAT 98
[2020-09-25 13:31] VITALS: BP 134/74; PULSE 56; RESP 18; O2SAT 97
[2020-09-25 14:00] VITALS: BP 126/69; PULSE 54; RESP 16; O2SAT 96
--- NOTE | 2020-09-25 14:29 | HMH.EDGENADL ---
ED Disposition Clinical Impression: Multiple bruises Fall from bed Qualifiers: Encounter type: initial encounter Qualified Code(s): W06.XXXA - Fall from bed, initial encounter Traumatic hematoma of forehead Qualifiers: Encounter type: initial encounter Qualified Code(s): S00.83XA - Contusion of other part of head, initial encounter Disposition: Home Health Service Condition on Discharge: Fair Instructions: How to Prevent Falls Additional Instructions: Follow-up with Dr. Rodriguez for further concerns. Referrals: Provider,Referral, [Primary Care Provider] - - Critical Care Critical Care Time: No Attestation: On 09/25/20, the high probability of a clinically significant, sudden or life threatening deterioration of the following system(s) required my full and direct attention, intervention and personal management. The time I documented below is in addition to time spent performing reported procedures but includes the following listed in this critical care notation. Medical Decision Making - Kristopher Inquiry Pt receiving controlled substance: No Vital Signs: 09/25/20 12:00 Temperature 97.7 F Temperature Source Oral Pulse Rate [Right] 65 Respiratory Rate 18 Blood Pressure [Right Arm] 126/73 Blood Pressure Mean [Right Arm] 90 02 Sat by Pulse Oximetry 100 Oxygen Delivery Method Room Air - CT Data CT Scan: Head, C-Spine Time Received: 14:[address] Reviewed: Yes: I have viewed the radiologist's interpretation Findings Narrative: PROCEDURE: CT HEAD/BRAIN WO CON CLINICAL INDICATION: fall, headstrike, on plavix COMPARISON: CT CT HEAD/BRAIN WO CON from 09/12/2020 TECHNIQUE: Axial images obtained. All CT scans at the facility use one or more dose reduction, viz: automated exposure control, ma/kV adjustment per patient size (including targeted exams where dose is matched to indication, i.e. head), or iterative reconstruction technique. FINDINGS: No midline shift, mass effect, intracranial hemorrhage, hydrocephalus, or extra-axial fluid collection is evident. Scalp in the midline the forehead is again noted but has shown slight decrease in size previous study now measuring 2.9 cm transverse diameter where as previously measures 3.8 cm. The basilar cisterns are prominent. The sylvian fissures and cortical sulci are prominent. There are prominent bilateral periventricular hypodensities consistent with chronic ischemic white matter changes. There is mild diffuse ventriculomegaly. The temporal horns of the lateral ventricles are somewhat prominent a finding more commonly seen in the L sinus disease but not definitely diagnostic there of.. The calvarium has an unremarkable appearance there is no skull fracture. No mastoid effusion. No sinus air-fluid level. IMPRESSION: Findings of moderate cortical atrophy and prominent chronic ischemic bilateral periventricular white matter changes. Slight interval decrease in size of the scalp hematoma of the forehead when compared to the previous exam 09/12/2020 Dictated by: Dr. Celestino Nath MD 09/25/2020 13:30 Dr. Celestino Nath MD in [facility] 09/25/2020 13:30 PROCEDURE: CT CERVICAL SPINE WO CON CLINICAL INDICATION: fall, headstrike, on plavix COMPARISON: CT CT CERVICAL SPINE WO CON from 09/12/2020 TECHNIQUE: Axial images obtained with sagittal and coronal reformats. All CT scans at the facility use one or more dose reduction, viz: automated exposure control, ma/kV adjustment per patient size (including targeted exams where dose is matched to indication, i.e. head), or iterative reconstruction technique. Axial spiral CT scanning performed of the cervical spine beginning at the base of the skull and continuing to the upper T-spine. 3-D multiplanar reconstruction with 3-D manipulation of volumetric data set in image rendering was completed by the radiologist and/or technologist with the supervision of the
[2020-09-25 14:30] VITALS: BP 119/66; PULSE 59; RESP 16; O2SAT 94
--- NOTE | 2020-09-25 14:51 | PC.NURSE ---
[facility] called for transport back to [facility]
[2020-09-25 15:18] VITALS: BP 137/77; PULSE 57; RESP 16; TEMP 36.3; O2SAT 100
--- NOTE | 2020-09-25 15:18 | PC.NURSE ---
Report given to Sridevi at [place].
== END 2020-09-25 15:21 | disposition home health service (06) ==
PROVIDERS: Emergency Provider Emergency Medicine
DX: S00.83XA Contusion of other part of head, initial encounter (principal); T07.XXXA Unspecified multiple injuries, initial encounter; W06.XXXA Fall from bed, initial encounter; Y92.129 Unspecified place in nursing home as the place of occurrence of the external cause; J44.9 Chronic obstructive pulmonary disease, unspecified; Z86.73 Personal history of transient ischemic attack (TIA), and cerebral infarction without residual deficits; I25.2 Old myocardial infarction; E78.5 Hyperlipidemia, unspecified; I10 Essential (primary) hypertension; F41.9 Anxiety disorder, unspecified; I50.9 Heart failure, unspecified; E11.9 Type 2 diabetes mellitus without complications; Z79.899 Other long term (current) drug therapy
CPT/HCPCS: G0463; 70450; 72125; 99211

== ENCOUNTER → 2020-10-11 07:26 | Outpatient (CLI) | payer MEDICARE, MEDICAID, SELFPAY ==
--- NOTE | 2020-10-11 07:32 | CT_ITS ---
PROCEDURE: CT HEAD/BRAIN WO/W CON CLINICAL INDICATION: MULTIPLES FALLS W/HEAD INJURY AND INCREASED LETHARGY COMPARISON: CT CT HEAD/BRAIN WO CON from 05/13/[address] HEAD/BRAIN WO CON from 09/25/2020 TECHNIQUE: IV Contrast: 100ML Isovue 370 Axial images obtained. All CT scans at the facility use one or more dose reduction, viz: automated exposure control, ma/kV adjustment per patient size (including targeted exams where dose is matched to indication, i.e. head), or iterative reconstruction technique. FINDINGS: No midline shift, mass effect, intracranial hemorrhage, hydrocephalus, or extra-axial fluid collection is evident. There is generalized atrophy with hypoattenuation of the periventricular white matter consistent with microangiopathic changes. 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 No enhancing lesions are evident. The calvarium has an unremarkable appearance. The right frontal scalp hematoma has further decreased in size no mastoid effusion. No sinus air-fluid level. IMPRESSION: 1. No acute intracranial findings. 2. There is generalized atrophy with hypoattenuation of the periventricular white matter consistent with microangiopathic changes. 3. Encephalomalacia change in the right occipital lobe medially suggestive of an old infarction unchanged Dictated by: Manan Haro MD 10/11/2020 17:09 Manan Haro MD in [facility] 10/11/2020 17:09
== END ==
PROVIDERS: PCP Emergency Medicine; Visit Provider Emergency Medicine
DX: R26.81 Unsteadiness on feet (principal); R53.83 Other fatigue
CPT/HCPCS: 70470; Q9967

== ENCOUNTER 2020-12-06 21:05 | Emergency (ER) | payer MEDICARE, MEDICAID, SELFPAY ==
[2020-12-06 21:02] VITALS: BP 131/67; PULSE 58; RESP 16; TEMP 36.8; O2SAT 100; BMI 34.3
[2020-12-06 21:05] VITALS: BMI 32.3
--- NOTE | 2020-12-06 21:06 | XR_ITS ---
PROCEDURE INFORMATION: Exam: XR Chest Exam date and time: 12/06/20 09:06 PM Age: 70 years old Clinical indication: Injury or trauma; Fall; Blunt trauma (contusions or hematomas) TECHNIQUE: Imaging protocol: XR of the chest. Views: 4 or more views. COMPARISON: CR XR CHEST AP 05/17/20 10:02 AM FINDINGS: Lungs: Unremarkable. No consolidation. Pleural spaces: Unremarkable. No pleural effusion. No pneumothorax. Heart/Mediastinum: Unremarkable. No cardiomegaly. Bones/joints: Severe osteoarthritic changes left glenohumeral joint. IMPRESSION: No acute traumatic injury detected.
--- NOTE | 2020-12-06 21:06 | CT_ITS ---
PROCEDURE INFORMATION: Exam: CT Cervical Spine Without Contrast Exam date and time: 12/06/2020 9:06 PM Age: 70 years old Clinical indication: Injury or trauma; Fall; Blunt trauma TECHNIQUE: Imaging protocol: Computed tomography images of the cervical spine without contrast. Radiation optimization: All CT scans at this facility use at least one of these dose optimization techniques: automated exposure control; mA and/or kV adjustment per patient size (includes targeted exams where dose is matched to clinical indication); or iterative reconstruction. COMPARISON: CT CERVICAL SPINE WO CON 09/25/2020 1:10 PM FINDINGS: Vertebrae: There are marked degenerative changes present. There is grade 1 stepwise anterolisthesis of C4 on C5 and C5 on C6 which is degenerative in nature. Otherwise normal alignment. No acute fractures. Other bones/joints: Erosions at the base of the dens with surrounding pannus formation suggests rheumatoid arthritis. Soft tissues: Unremarkable. Lungs: Lung apices are normal. IMPRESSION: No acute injury.
--- NOTE | 2020-12-06 21:06 | XR_ITS ---
PROCEDURE INFORMATION: Exam: XR Pelvis Exam date and time: 12/06/20 09:06 PM Age: 70 years old Clinical indication: Injury or trauma; Fall; Blunt trauma (contusions or hematomas); Bilateral; Hip TECHNIQUE: Imaging protocol: XR pelvis. Views: 1 or 2 view. COMPARISON: CR XR HIP RT 2-3V W/PELVIS 09/12/20 04:31 AM FINDINGS: Bones/joints: Unremarkable. No acute fracture. Soft tissues: Unremarkable. IMPRESSION: No acute findings.
--- NOTE | 2020-12-06 21:06 | XR_ITS ---
PROCEDURE INFORMATION: Exam: XR Left Knee Exam date and time: 12/06/20 09:06 PM Age: 70 years old Clinical indication: Injury or trauma; Fall; Blunt trauma; Knee; Left; Prior surgery; Surgery date: 6+ months; Surgery type: Tka; Additional info: Fall, knee pain TECHNIQUE: Imaging protocol: XR Left knee. Views: 3 views. COMPARISON: No relevant prior studies available. FINDINGS: Bones/joints: Left total knee arthroplasty. Soft tissues: Normal. IMPRESSION: Left total knee arthroplasty.
--- NOTE | 2020-12-06 21:06 | CT_ITS ---
PROCEDURE INFORMATION: Exam: CT Head Without Contrast Exam date and time: 12/06/2020 9:06 PM Age: 70 years old Clinical indication: Injury or trauma; Fall; Blunt trauma (contusions or hematomas) TECHNIQUE: Imaging protocol: Computed tomography of the head without contrast. 3D rendering (Not supervised by radiologist): MIP and/or 3D reconstructed images were created by the technologist. Radiation optimization: All CT scans at this facility use at least one of these dose optimization techniques: automated exposure control; mA and/or kV adjustment per patient size (includes targeted exams where dose is matched to clinical indication); or iterative reconstruction. COMPARISON: CT HEAD/BRAIN WO/W CON 10/11/2020 7:40 AM FINDINGS: Brain: Age appropriate atrophy and small vessel ischemic change. No evidence of intracranial hemorrhage, mass effect, midline shift or extra-axial fluid collections. Midline structures are normal. Butler-white matter differentiation is normal. Cerebral ventricles: No ventriculomegaly. Paranasal sinuses: Visualized sinuses are unremarkable. No fluid levels. Mastoid air cells: Visualized mastoid air cells are well aerated. Vasculature: Carotid and vertebral artery atherosclerotic calcification. Bones/joints: Unremarkable. No acute fracture. Soft tissues: There is left periorbital and temporal soft tissue swelling.Mucosal thickening in the sphenoid sinuses. IMPRESSION: No acute intracranial injury.
--- NOTE | 2020-12-06 21:17 | HMH.EDFALL ---
ED Disposition Clinical Impression: Fall Qualifiers: Encounter type: initial encounter Qualified Code(s): W19.XXXA - Unspecified fall, initial encounter Facial laceration Qualifiers: Encounter type: initial encounter Qualified Code(s): S01.81XA - Laceration without foreign body of other part of head, initial encounter Contusion of knee, left Qualifiers: Encounter type: initial encounter Qualified Code(s): S80.02XA - Contusion of left knee, initial encounter Disposition: Home, Self-Care Condition on Discharge: Good Instructions: DI for Laceration Repair Additional Instructions: sutures out 8-9 days and resume prev orders Referrals: Marcio Rodriguez MD [Primary Care Provider] - - Critical Care Critical Care Time: No Attestation: On 12/06/20, the high probability of a clinically significant, sudden or life threatening deterioration of the following system(s) required my full and direct attention, intervention and personal management. The time I documented below is in addition to time spent performing reported procedures but includes the following listed in this critical care notation. Medical Decision Making - Medical Records Medical records reviewed: Yes: I reviewed the patient's medical records. - Kristopher Inquiry Pt receiving controlled substance: No Vital Signs: 12/06/20 21:02 Temperature 98.3 F Temperature Source Oral Pulse Rate [Left] 58 L Respiratory Rate 16 Blood Pressure [Right Arm] 131/67 Blood Pressure Mean [Right Arm] 88 Blood Pressure Source [Right Arm] Automatic Cuff Blood Pressure Position [Right Arm] Sitting 02 Sat by Pulse Oximetry 100 Oxygen Delivery Method Room Air - Lab Data Lab results reviewed: Yes: I reviewed the patient's lab results. - Radiology Data #1 Image(s): Chest, Pelvis, Knee Image Reviewed: Yes I have reviewed radiologist's interpretation Preliminary Findings: No Fracture Seen - CT Data CT Scan: Head, C-Spine Time Received: 22:[address] Reviewed: Yes: I have viewed the radiologist's interpretation Preliminary Findings: No Fracture Seen Medical Decision Narrative: no fx seen on xrays and at baseline on exam Fall HPI - General Chief Complaint: Wound/Laceration Stated Complaint: Fall, L eyebrow LAC Time Seen by Provider: 12/06/20 21:17 Mode of Arrival: EMS Source of Information: Patient, Medical Record Limitations: Physical Limitations Description of Symptoms (Recalled from ER Triage Doc. by RN): pt got up and fell in the bathroom and hit head her head on the wall and has a laceration above the left eye. pt also complains of pain in the left knee, small abrasion noted - History of Present Illness HPI Narrative: fell at f getting oob - c/o of lt facial fx and lt knee MD complaint: fall Onset (ago): hour(s) Fall from: out of bed Fall witnessed: no Place fall occurred: detention/SNF Loss of consciousness: none Prolonged down time: no Context: tripped/slipped Location of injury: face Location of injury - extremities: Left: knee Severity: moderate Associated symptoms (after fall): denies - Related Data Home Medications Medication Instructions Recorded Confirmed atorvastatin 20 mg tablet 20 mg PO HS 02/17/18 10/29/20 sertraline 100 mg tablet 200 mg PO DAILY 02/17/18 10/29/20 RX: Calcium Carbonate/Vitamin D3 1 each PO BID 09/29/19 10/29/20 [Calcium 600 + Vit D Tablet] RX: Clopidogrel Bisulfate 75 mg PO DAILY 09/29/19 10/29/20 [Clopidogrel 75mg Tab] RX: Doxepin HCl [Sinequan 10mg 30 mg PO HS 09/29/19 10/29/20 capsule] RX: Insulin Glargine,Hum.rec.anlog 35 unit SQ 09/29/19 10/29/20 [Basaglar Mikkiikpen U-100] RX: Metformin HCl 500 mg PO DAILY 09/29/19 10/29/20 RX: Omeprazole [Omeprazole 40mg 40 mg PO DAILY 09/29/19 10/29/20 Capsule] RX: Oxybutynin Chloride 10 mg PO DAILY 09/29/19 10/29/20 [Oxybutynin Chloride ER] RX: ARIPiprazole [Aripiprazole 30 mg PO DAILY 05/17/20 10/29/20 30mg Tablet] RX: Aspirin
[2020-12-06 22:36] VITALS: BP 134/72; PULSE 60; RESP 16; TEMP 36.8; O2SAT 100
== END 2020-12-06 22:37 | disposition home or self-care (01) ==
PROVIDERS: Emergency Provider Emergency Medicine; PCP Emergency Medicine
DX: S01.81XA Laceration without foreign body of other part of head, initial encounter (principal); S80.02XA Contusion of left knee, initial encounter; W01.0XXA Fall on same level from slipping, tripping and stumbling without subsequent striking against object, initial encounter; Y92.121 Bathroom in nursing home as the place of occurrence of the external cause; K21.9 Gastro-esophageal reflux disease without esophagitis; E11.9 Type 2 diabetes mellitus without complications; I25.10 Atherosclerotic heart disease of native coronary artery without angina pectoris; J44.9 Chronic obstructive pulmonary disease, unspecified; I25.2 Old myocardial infarction; I50.9 Heart failure, unspecified; I10 Essential (primary) hypertension; Z79.899 Other long term (current) drug therapy
CPT/HCPCS: 12001; 70450; 71045; 72125; 72170; 73562; 99282

== ENCOUNTER 2020-12-13 18:37 | Emergency (ER) | payer MEDICARE, MEDICAID, SELFPAY ==
[2020-12-13] VITALS (8 sets, daily range): BP systolic 131–175; BP diastolic 73–98; PULSE 60–77; RESP 14–18; TEMP 36.9; O2SAT 98–100; BMI 35.2
--- NOTE | 2020-12-13 18:14 | ECG_ITS ---
APPROVED REPORT Exam: Resting ECG HR:59 bpm ECG Measurements Heart Rate 59 AXES SC 130 P -2 QRSd 78 QRS -9 QT 416 T 56 QTc 411 Conclusion Sinus bradycardia Low voltage QRS Old anteroseptal changes Abnormal ECG Electronically signed by : Rainer Asher MD 12/14/2020 09:46:17
--- NOTE | 2020-12-13 18:18 | XR_ITS ---
PROCEDURE INFORMATION: Exam: XR Chest Exam date and time: 12/13/2020 6:18 PM Age: 70 years old Clinical indication: Chest wall pain; Patient HX: Chest pain; Cough; Non-smoker TECHNIQUE: Imaging protocol: XR of the chest. Views: 1 view. Total images: 1 COMPARISON: CR XR CHEST AP 12/06/2020 9:30 PM FINDINGS: Lungs: Normal pulmonary expansion. Mild central vascular congestion. No gross pulmonary infiltrates or edema pattern. Pleural spaces: No pleural effusion. No pneumothorax. Heart/Mediastinum: Heart size within normal limits for portable AP technique. No tracheal/mediastinal shift. Vasculature: The aorta demonstrates mild ectasia/tortuosity and mild calcific atherosclerosis. Bones/joints: Osteopenia. Chronic right posterolateral 6th rib fracture unchanged back to comparison exam 10/16/2019. No acute fractures are identified. IMPRESSION: 1. No acute thoracic process. No significant change. 2. Osteopenia and chronic right posterolateral 6th rib fracture.
--- NOTE | 2020-12-13 18:47 | HMH.EDCP ---
ED Disposition Condition on Discharge: Good - Critical Care Critical Care Time: No <Barron Padron - Last Filed: 12/13/20 20:05> <Marcio Rodriguez - Last Filed: 12/13/20 22:22> Clinical Impression: Nonspecific chest pain, Dyspepsia Disposition: Home, Self-Care Instructions: DI for Atypical Chest Pain Additional Instructions: resume care at ec Referrals: Venkat Amato MD [Staff Physician] - Attestation: On 12/13/20, the high probability of a clinically significant, sudden or life threatening deterioration of the following system(s) required my full and direct attention, intervention and personal management. The time I documented below is in addition to time spent performing reported procedures but includes the following listed in this critical care notation. Medical Decision Making - Medical Records Medical records reviewed: Yes: I reviewed the patient's medical records. - Kristopher Inquiry Pt receiving controlled substance: No - Lab Data Result diagrams: 12/13/20 19:02 12/13/20 18:44 - Radiology Data #1 Image(s): Chest Image Reviewed: Yes I reviewed the patient's radiology results, Yes I reviewed the patient's radiology image, Yes I have reviewed radiologist's interpretation - ECG Data Tracing #1 I reviewed this ECG and interpreted as documented below: ECG initial impression date: 12/13/20 ECG initial impression time: 18:14 - Reevaluation(s) Time: 20:06 - COLBY Score for Non-Stemi Age of Patient: 60-69 years old Heart Rate: 50-69 bpm Systolic Blood Pressure: 140-159 mmHg Serum Creatinine: 1.20-1.59 mg/dl CHF Killip Class: I-No CHF Other Risk Factors: None Non-Stemi Risk Score: 95 Risk Stratification: 1-108 = Low Risk <Barron Padron - Last Filed: 12/13/20 20:05> - Lab Data Lab results reviewed: Yes: I reviewed the patient's lab results. Result diagrams: 12/13/20 19:02 12/13/20 18:44 <Marcio Rodriguez - Last Filed: 12/13/20 22:22> Vital Signs: 12/13/20 18:30 Temperature 98.4 F Temperature Source Oral Pulse Rate [Left Radial] 60 Respiratory Rate 18 Blood Pressure [Right Arm] 155/75 H Blood Pressure Mean [Right Arm] 101 Blood Pressure Source [Right Arm] Automatic Cuff Blood Pressure Position [Right Arm] Supine 02 Sat by Pulse Oximetry 100 Oxygen Delivery Method Room Air - Lab Data Lab Results 12/13/20 18:44: Sodium 143, Potassium 4.5, Chloride 109 H, Carbon Dioxide 28, Anion Gap 10.5, BUN 20 H, Creatinine 0.90, Estimated Creat Clear 88, Estimated GFR 62, Est GFR ( Amer) 75, Glucose 137 H, Calcium 9.3, Total Bilirubin 0.3, AST 29, ALT 17, Alkaline Phosphatase 212 H, Troponin I 0.01, NT-Pro-B Natriuret Pep 234 H, Total Protein 7.1, Albumin 3.8, Globulin 3.3 H, Albumin/Globulin Ratio 1.2, Lipase 57 12/13/20 19:02: WBC 6.7, RBC 3.67 L, Hgb 11.0 L, Hct 33.8 L, MCV 92.1, MCH 29.9, MCHC 32.5, RDW 15.2, Plt Count 146, MPV 9.0, Neut % (Auto) 69.4, Lymph % (Auto) 23.5, [place] % (Auto) 3.9, Eos % (Auto) 2.8, Baso % (Auto) 0.5, Neut # (Auto) 4.7, Lymph # (Auto) 1.6, [place] # (Auto) 0.3, Eos # (Auto) 0.2, Baso # (Auto) 0.0 12/13/20 21:19: Troponin I < 0.01 Orders (Tests/Meds): ED MEDICATIONS Discontinued Medications Generic Name Dose Route Start Last Admin Trade Name Freq PRN Reason Stop Dose Admin Ondansetron HCl 4 mg 12/13/20 19:16 Ondansetron 4mg/2ml Vial IV 12/13/20 19:17 ONCE ONE ORDERS Category Date Time Status Troponin I Q3H Lab 12/14/20 00:30 Ordered - Radiology Data #1 IMPRESSION: 1. No acute thoracic process. No significant change. 2. Osteopenia and chronic right posterolateral 6th rib fracture. (Barron Padron) - ECG Data Tracing #1 Bradycardic rate of 59 bpm, IA interval 130, normal QTC. Sinus bradycardia with nonspecific changes (Barron Padron) - Reevaluation(s) Reevaluation #1: On reevaluation, patient is pain-free. First troponin was negative. Patient is low risk for acu
[2020-12-13 19:00] LABS: Alanine Aminotransferase 17 U/L (12-78); Albumin Level 3.8 g/dl (3.5-5.0); Albumin/Globulin Ratio 1.2 (1.1-1.8); Alkaline Phosphatase 212 U/L (38-126); Anion Gap 10.5 mEq/L (5-15); Aspartate Amino Transferase 29 U/L (14-36); Bilirubin,Total 0.3 mg/dl (0.2-1.3); Blood Urea Nitrogen 20 mg/dl (7-17); Calcium 9.3 mg/dl (8.4-10.2); Carbon Dioxide 28 mmol/L (22.0-30.0); Chloride 109 mmol/L (98-107); Creatinine Clearance Estimated 88 mL/min (50-200); Estimated Glomerular Filt Rate 62 ml/min (>60); GFR (African American) 75 ML/MIN (>60); Globulin 3.3 g/dL (1.3-3.2); Glucose 137 mg/dl (74-100); Lipase 57 U/L (23-300); Potassium 4.5 mmoL/L (3.5-5.1); Sodium 143 mmol/L (136-145); Total Protein,Serum 7.1 g/dl (6.3-8.2)
[2020-12-13 19:11] LABS: Basophils % 0.5 % (0.1-2.0); Eosinophils # 0.2 K/mm3 (0.0-0.4); Eosinophils % 2.8 % (0.1-12.0); Hematocrit 33.8 % (37.0-47.0); Lymphocytes # 1.6 K/mm3 (0.7-4.5); Lymphocytes % 23.5 % (10-50); Mean Corpuscular HGB Conc 32.5 g/dL (31.8-35.4); Mean Corpuscular Hemoglobin 29.9 pg (27.0-31.2); Mean Corpuscular Volume 92.1 fl (81-99); Monocytes # 0.3 K/mm3 (0.1-1.0); Monocytes % 3.9 % (1.7-9.3); Neutrophils # 4.7 K/mm3 (1.8-7.8); Neutrophils % 69.4 % (37.0-80.0); Platelet Count 146 K/mm3 (142-424); Red Blood Count 3.67 M/mm3 (4.20-5.40); Red Cell Distribution Width 15.2 % (11.5-17.5); White Blood Count 6.7 K/mm3 (4.8-10.8)
[2020-12-13 19:12] LABS: NT Pro Brain Natriuretic Pep. 234 pg/mL (0-125)
[2020-12-13 19:14] LABS: Troponin I 0.01 ng/ml (0.00-0.034)
[2020-12-13 22:03] LABS: Troponin I < 0.01 ng/ml (0.00-0.034)
--- NOTE | 2020-12-13 22:31 | PC.NURSE ---
called report to [facility]
== END 2020-12-13 23:04 | disposition home or self-care (01) ==
PROVIDERS: Emergency Provider Emergency Medicine; PCP Emergency Medicine
DX: N30.00 Acute cystitis without hematuria (principal); R10.13 Epigastric pain; E11.9 Type 2 diabetes mellitus without complications; I10 Essential (primary) hypertension; I25.2 Old myocardial infarction; K21.9 Gastro-esophageal reflux disease without esophagitis; E78.5 Hyperlipidemia, unspecified; J44.9 Chronic obstructive pulmonary disease, unspecified; I25.10 Atherosclerotic heart disease of native coronary artery without angina pectoris; Z79.899 Other long term (current) drug therapy; R06.09 Other forms of dyspnea
CPT/HCPCS: 36415; 71045; 80053; 83690; 83880; 84484; 85025; 93005; 99283; J2405

== ENCOUNTER → 2021-04-08 02:36 | Outpatient (CLI) | payer MEDICARE, MEDICAID, SELFPAY ==
[2021-04-08 02:59] LABS: Microscopic, Urine URINE MICROSCOPIC (MICROSCOPIC)
[2021-04-08 03:04] LABS: Bilirubin,Urine Negative (Negative); Blood, Urine TRACE-I (Negative); Color,Urine YELLOW (Yellow); Glucose,Urine (UA) Negative (Negative); Ketones,Urine Negative (Negative); Leukocyte Esterase,Urine 3+ (Negative); Nitrate,Urine POSITIVE (Negative); Protein,Urine Negative (Negative); Urobilinogen,Urine 0.2 EU/dl (0.2)
[2021-04-08 03:05] LABS: Appearance,Urine Cloudy (Clear)
[2021-04-08 03:29] LABS: Bacteria,Urine 3+ /lpf
== END ==
PROVIDERS: Visit Provider Emergency Medicine
DX: N39.0 Urinary tract infection, site not specified (principal); R53.83 Other fatigue; R53.1 Weakness; B96.20 Unspecified Escherichia coli [E. coli] as the cause of diseases classified elsewhere
CPT/HCPCS: 81001; 87086; 87088; 87186

== ENCOUNTER 2021-04-27 09:29 | Emergency (ER) | payer MEDICARE, MEDICAID, SELFPAY ==
[2021-04-27] VITALS (13 sets, daily range): BP systolic 105–130; BP diastolic 48–70; PULSE 48–69; RESP 17–20; TEMP 36.7; O2SAT 96–100; BMI 45.3
--- NOTE | 2021-04-27 10:00 | XR_ITS ---
PROCEDURE INFORMATION: Exam: XR Chest Exam date and time: 04/27/2021 10:00 AM Age: 70 years old Clinical indication: Other: Psych clearance TECHNIQUE: Imaging protocol: XR of the chest. Views: 1 view. COMPARISON: CR XR CHEST PORTABLE 12/13/2020 6:35 PM FINDINGS: Lungs: No evidence of an active pulmonary process. No focal consolidation. Pleural spaces: Unremarkable. No pleural effusion. No pneumothorax. Heart/Mediastinum: Cardiomegaly. Mild pulmonary vascular congestion. Vasculature: Mild vascular calcifications. Bones/joints: Osteoarthritic changes. IMPRESSION: No acute process. Otherwise, as above
--- NOTE | 2021-04-27 10:01 | HMH.EDGENADL ---
ED Disposition Clinical Impression: Suicidal ideation Depression Qualifiers: Depression Type: unspecified Qualified Code(s): F32.A - Depression, unspecified Disposition: Xfer Psychiatric Hosp Condition on Discharge: Good Referrals: Marcio Rodriguez MD [Primary Care Provider] - - Critical Care Critical Care Time: No Attestation: On 04/27/21, the high probability of a clinically significant, sudden or life threatening deterioration of the following system(s) required my full and direct attention, intervention and personal management. The time I documented below is in addition to time spent performing reported procedures but includes the following listed in this critical care notation. Medical Decision Making - Kristopher Inquiry Pt receiving controlled substance: No Vital Signs: 04/27/21 09:29 04/27/21 09:52 04/27/21 10:00 Temperature 98.1 F Temperature Source Oral Pulse Rate 55 L 55 L Pulse Rate [Left Radial] 54 L Respiratory Rate 17 18 18 Blood Pressure 108/50 L 105/49 L Blood Pressure [Right Arm] 128/55 L Blood Pressure Mean [Right Arm] 79 02 Sat by Pulse Oximetry 100 96 96 Oxygen Delivery Method Room Air Room Air Room Air 04/27/21 10:54 04/27/21 11:22 04/27/21 11:31 Temperature Temperature Source Pulse Rate 69 60 62 Pulse Rate [Left Radial] Respiratory Rate 18 18 18 Blood Pressure 128/57 L 130/66 105/70 L Blood Pressure [Right Arm] Blood Pressure Mean [Right Arm] 02 Sat by Pulse Oximetry 99 97 100 Oxygen Delivery Method Room Air Room Air Room Air 04/27/21 12:00 04/27/21 12:30 04/27/21 13:00 Temperature Temperature Source Pulse Rate 52 L 52 L 51 L Pulse Rate [Left Radial] Respiratory Rate 18 18 18 Blood Pressure 112/55 L 119/61 125/62 Blood Pressure [Right Arm] Blood Pressure Mean [Right Arm] 02 Sat by Pulse Oximetry 99 99 100 Oxygen Delivery Method Room Air Room Air Room Air 04/27/21 13:30 04/27/21 13:38 04/27/21 14:00 Temperature 98.1 F Temperature Source Oral Pulse Rate 62 54 L 48 L Pulse Rate [Left Radial] Respiratory Rate 18 20 18 Blood Pressure 127/53 L 127/53 L 127/54 L Blood Pressure [Right Arm] Blood Pressure Mean [Right Arm] 02 Sat by Pulse Oximetry 97 98 Oxygen Delivery Method Room Air Room Air Room Air 04/27/21 14:30 Temperature Temperature Source Pulse Rate 64 Pulse Rate [Left Radial] Respiratory Rate 18 Blood Pressure 128/48 L Blood Pressure [Right Arm] Blood Pressure Mean [Right Arm] 02 Sat by Pulse Oximetry 98 Oxygen Delivery Method Room Air - Lab Data Lab Results 04/27/21 09:32: SARS-CoV-2 (PCR) Not detected, Influenza A Untype (PCR) Not detected, Influenza Type B (PCR) Not detected 04/27/21 10:00: Urine Color Straw, Urine Appearance Clear, Urine pH 6.0, Ur Specific [place] 1.015, Urine Protein Negative, Urine Glucose (UA) Negative, Urine Ketones Negative, Urine Blood Negative, Urine Nitrate Negative, Urine Bilirubin Negative, Urine Urobilinogen 0.2, Ur Leukocyte Esterase 2+ A, Urine RBC None, Urine WBC 3-5, Ur Squamous Epith Cells 3-5, Ur Transition Epith Cell Occ, Urine Bacteria Trace 04/27/21 10:12: Urine Opiates Screen Negative, Urine Methadone Screen Negative, Ur Barbituates Screen Negative, Ur Phencyclidine Scrn Negative, Ur Amphetamines Screen Negative, U Benzodiazepines Scrn Negative, Urine Cocaine Screen Negative, U Marijuana (THC) Screen Negative 04/27/21 11:03: WBC 6.8, RBC 4.23, Hgb 12.7, Hct 38.7, MCV 91.4, MCH 29.9, MCHC 32.8, RDW 14.6, Plt Count 161, MPV 10.8 H, Neut % (Auto) 65.4, Lymph % (Auto) 25.6, [place] % (Auto) 4.5, Eos % (Auto) 4.0, Baso % (Auto) 0.6, Neut # (Auto) 4.5, Lymph # (Auto) 1.7, [place] # (Auto) 0.3, Eos # (Auto) 0.3, Baso # (Auto) 0.0 04/27/21 11:03: Sodium 139, Potassium 4.7, Chloride 106, Carbon Dioxide 32 H, Anion Gap 5.7, BUN 24 H, Creatinine 1.30 H, Estimated Creat Clear 29, Estimated GFR 41 L, Est GFR ( Amer) 49 L, Glucose 101 H, Calcium 9.0, Total Bilirubin 0
--- NOTE | 2021-04-27 10:13 | PC.NURSE ---
assisted nurse in helping patient to the bathroom.
--- NOTE | 2021-04-27 10:14 | PC.NURSE ---
patient back in bed after using restroom.
--- NOTE | 2021-04-27 10:14 | PC.NURSE ---
radiology bedside doing chest x-ray.
[2021-04-27 10:17] LABS: Microscopic, Urine URINE MICROSCOPIC (MICROSCOPIC)
[2021-04-27 10:23] LABS: Appearance,Urine CLEAR (Clear); Bilirubin,Urine Negative (Negative); Blood, Urine Negative (Negative); Color,Urine STRAW (Yellow); Glucose,Urine (UA) Negative (Negative); Ketones,Urine Negative (Negative); Leukocyte Esterase,Urine 2+ (Negative); Nitrate,Urine Negative (Negative); Protein,Urine Negative (Negative); Specific Gravity, Urine 1.015 (1.005-1.030); Urobilinogen,Urine 0.2 EU/dl (0.2)
[2021-04-27 10:32] LABS: Amphetamine/Metha Screen,Urine Negative ng/ml (<1000); Barbiturates Screen,Urine Negative ng/ml (<200)
[2021-04-27 10:33] LABS: Benzodiazepines Screen,Urine Negative ng/ml (<200)
[2021-04-27 10:34] LABS: Cannabinoid Screen,Urine Negative ng/ml (<50); Cocaine Screen,Urine Negative ng/ml (<300)
[2021-04-27 10:35] LABS: Methadone Screen,Urine Negative ng/ml (<300); Opiate Screen,Urine Negative ng/ml (<300)
[2021-04-27 10:36] LABS: Phencyclidine Screen,Urine Negative ng/ml (<25)
[2021-04-27 10:37] LABS: Bacteria,Urine Trace /lpf; Transitional Epi Cells,Urine OCC #/lpf (0-3)
--- NOTE | 2021-04-27 10:47 | PC.NURSE ---
EKG done at this time
--- NOTE | 2021-04-27 10:48 | ECG_ITS ---
APPROVED REPORT Exam: Resting ECG HR:67 bpm ECG Measurements Heart Rate 67 AXES QRSd 76 QRS 102 QT 417 T -2 QTc 433 Conclusion ATRIAL FIBRILLATION RIGHT AXIS DEVIATION [QRS AXIS > 100] LOW QRS VOLTAGE IN PRECORDIAL LEADS [QRS DEFLECTION < 1.0 mV IN CHEST LEADS] POSSIBLE ANTERIOR MYOCARDIAL INFARCTION , OF INDETERMINATE AGE [30 ms Q WAVE IN V3/V4, OR R < 0.2 mV IN V4] ABNORMAL ECG UNCONFIRMED REPORT Electronically signed by : Rainer Asher MD 04/28/2021 18:00:37
--- NOTE | 2021-04-27 10:57 | PC.NURSE ---
mill laborer is bedside
--- NOTE | 2021-04-27 11:05 | PC.NURSE ---
called the kitchen to get patient a lunch tray.
[2021-04-27 11:12] LABS: Basophils % 0.6 % (0.1-2.0); Eosinophils # 0.3 K/mm3 (0.0-0.4); Hematocrit 38.7 % (37.0-47.0); Hemoglobin 12.7 g/dL (12.2-16.2); Lymphocytes # 1.7 K/mm3 (0.7-4.5); Lymphocytes % 25.6 % (10-50); Mean Corpuscular HGB Conc 32.8 g/dL (31.8-35.4); Mean Corpuscular Hemoglobin 29.9 pg (27.0-31.2); Mean Corpuscular Volume 91.4 fl (81-99); Mean Platelet Volume 10.8 fl (7.4-10.4); Monocytes # 0.3 K/mm3 (0.1-1.0); Monocytes % 4.5 % (1.7-9.3); Neutrophils # 4.5 K/mm3 (1.8-7.8); Neutrophils % 65.4 % (37.0-80.0); Platelet Count 161 K/mm3 (142-424); Red Blood Count 4.23 M/mm3 (4.20-5.40); Red Cell Distribution Width 14.6 % (11.5-17.5); White Blood Count 6.8 K/mm3 (4.8-10.8)
--- NOTE | 2021-04-27 11:15 | PC.NURSE ---
Kitchen brought patient down a tray for lunch. Pt sitting up in bed eating at this time.
[2021-04-27 11:17] LABS: Chloride 106 mmol/L (98-107); Potassium 4.7 mmoL/L (3.5-5.1); Sodium 139 mmol/L (136-145)
[2021-04-27 11:19] LABS: Alanine Aminotransferase 16 U/L (12-78); Aspartate Amino Transferase 25 U/L (14-36); Blood Urea Nitrogen 24 mg/dl (7-17); Creatinine Clearance Estimated 29 mL/min (50-200); Estimated Glomerular Filt Rate 41 ml/min (>60); GFR (African American) 49 ML/MIN (>60)
[2021-04-27 11:20] LABS: Albumin Level 4.1 g/dl (3.5-5.0); Albumin/Globulin Ratio 1.3 (1.1-1.8); Alkaline Phosphatase 222 U/L (38-126); Anion Gap 5.7 mEq/L (5-15); Bilirubin,Total 0.5 mg/dl (0.2-1.3); Carbon Dioxide 32 mmol/L (22.0-30.0); Globulin 3.1 g/dL (1.3-3.2); Glucose 101 mg/dl (74-100); Total Protein,Serum 7.2 g/dl (6.3-8.2)
[2021-04-27 11:22] LABS: Acetaminophen < 10 ug/ml (10-30); Ethyl Alcohol < 10 mg/dl (0-10); Salicylate < 1.0 mg/dL (2.0-20.0)
--- NOTE | 2021-04-27 12:25 | PC.NURSE ---
spoke with for petition
[2021-04-27 13:16] LABS: Coronavirus 19, PCR Not Detected (NotDetected); Influenza A, PCR Not Detected (NotDetected); Influenza B, PCR Not Detected (NotDetected)
--- NOTE | 2021-04-27 14:48 | PC.NURSE ---
pt is sitting up in bed eating a rice krispy treat and drinking some iced tea. Has been talking to this survey and mapping technician and also sleeping some as well. When asking her if she needs anything she states, NO she is very appreciative of me and thanks me for sitting with her and giving her some company.
== END 2021-04-27 14:57 ==
PROVIDERS: Emergency Provider Emergency Medicine; PCP Emergency Medicine
DX: R45.851 Suicidal ideations (principal); F32.A Depression, unspecified; J44.9 Chronic obstructive pulmonary disease, unspecified; I25.10 Atherosclerotic heart disease of native coronary artery without angina pectoris; Z86.73 Personal history of transient ischemic attack (TIA), and cerebral infarction without residual deficits; K21.9 Gastro-esophageal reflux disease without esophagitis; M79.7 Fibromyalgia; I10 Essential (primary) hypertension; E78.5 Hyperlipidemia, unspecified; I25.2 Old myocardial infarction; Z79.899 Other long term (current) drug therapy
CPT/HCPCS: 36415; 71045; 80053; 80305; 80329; 81001; 85025; 87086; 87088; 87186; 93005; 99284; 99285; C9803; U0003; U0005

== ENCOUNTER → 2021-06-26 09:51 | Outpatient (CLI) | payer MEDICARE, MEDICAID, SELFPAY ==
--- NOTE | 2021-06-26 09:55 | XR_ITS ---
FINAL REPORT CLINICAL HISTORY: LEFT KNEE/HIP PAIN FINDINGS: LEFT KNEE 3 views of the left knee were obtained. The patient is status post left total knee arthroplasty, stable. There is no acute fracture or dislocation. Soft tissues are unremarkable. IMPRESSION: No acute bony abnormality. Reviewed, Interpreted and Dictated by Mike Macias III, MD Transcribed by Yesy Angeles Authenticated by Mike Macias III, MD on 06/26/2021 12:24:15 PM [facility]
--- NOTE | 2021-06-26 10:21 | XR_ITS ---
FINAL REPORT CLINICAL HISTORY: LEFT KNEE/HIP PAIN FINDINGS: LEFT HIP 3 views were obtained. There is no acute fracture or dislocation. There are mild degenerative changes of both hips. There is no soft tissue abnormality. IMPRESSION: Degenerative changes with no acute bony abnormality. Reviewed, Interpreted and Dictated by Mike Macias III, MD Transcribed by Yesy Angeles Authenticated by Mike Macias III, MD on 06/26/2021 12:24:19 PM [facility]
[2021-06-26 13:05] LABS: Basophils # 0.2 K/mm3 (0-0.2); Basophils % 2.2 % (0.1-2.0); Eosinophils # 0.2 K/mm3 (0.0-0.4); Hematocrit 37.6 % (37.0-47.0); Hemoglobin 12.2 g/dL (12.2-16.2); Lymphocytes # 1.8 K/mm3 (0.7-4.5); Lymphocytes % 25.6 % (10-50); Mean Corpuscular HGB Conc 32.4 g/dL (31.8-35.4); Mean Corpuscular Hemoglobin 29.6 pg (27.0-31.2); Mean Corpuscular Volume 91.4 fl (81-99); Mean Platelet Volume 9.9 fl (7.4-10.4); Monocytes # 0.3 K/mm3 (0.1-1.0); Monocytes % 4.7 % (1.7-9.3); Neutrophils # 4.5 K/mm3 (1.8-7.8); Neutrophils % 64.5 % (37.0-80.0); Platelet Count 183 K/mm3 (142-424); Red Blood Count 4.12 M/mm3 (4.20-5.40); White Blood Count 6.9 K/mm3 (4.8-10.8)
[2021-06-26 13:14] LABS: C-Reactive Protein 23.1 mg/L (0-4)
[2021-06-26 14:14] LABS: Erythrocyte Sedimentation Rate 53 mm/hr (0-30)
== END ==
PROVIDERS: PCP Emergency Medicine; Visit Provider Orthopaedic Surgery
DX: M25.562 Pain in left knee (principal); S80.02XA Contusion of left knee, initial encounter
CPT/HCPCS: 36415; 73502; 73562; 85025; 85651; 86140

== ENCOUNTER → 2021-07-01 08:58 | Outpatient (CLI) | payer MEDICARE, MEDICAID, SELFPAY ==
--- NOTE | 2021-07-01 09:41 | XR_ITS ---
FINAL REPORT TECHNIQUE: Bone densitometry calculations of the lumbar spine and left hip were obtained. CLINICAL HISTORY: POST MENOPAUSAL FINDINGS: DEXA BONE DENSITY AXIAL SKELETON Using L1-4, the bone mineral density of the spine is 0.970 g/cm2, corresponding to T-score of -0.7. These values may be falsely elevated secondary to hypertrophic change. Using the left hip, the bone mineral density of the femoral neck is 0.790 g/cm2, corresponding to a T-score of -1.2. Using the right hip, the bone mineral density of the femoral neck is 0.666 g/cm2, corresponding to a T-score of -1.6. NOTE: T-score: Standard deviation compared with peak bone mass of young adult mean. *Following the recommendations of the International Society of Bone densitometry, classification of hip BMD is based on the lower of two T-scores; total hip or femoral neck. IMPRESSION: Diminished bone mineral density of the lumbar spine and each hip consistent with osteopenia. FRAX 10 year fracture risk is 15% for major osteoporotic fracture. Reviewed, Interpreted and Dictated by Khoa Culp MD Transcribed by Marisela Newsome Authenticated by Khoa Culp MD on 07/01/2021 11:15:[address] [facility]
== END ==
PROVIDERS: PCP Emergency Medicine; Visit Provider Emergency Medicine
DX: Z78.0 Asymptomatic menopausal state (principal); Z13.820 Encounter for screening for osteoporosis
CPT/HCPCS: 77080

== ENCOUNTER → 2021-07-22 08:40 | Outpatient (CLI) | payer MEDICARE, MEDICAID, SELFPAY ==
--- NOTE | 2021-07-22 08:40 | NM_ITS ---
FINAL REPORT CLINICAL HISTORY: lt knee pain, multiple recent falls, prior lt tka several yrs ago, prior lt knee xray 9:00am 25.3 mci tc mdp FINDINGS: BONE SCAN LIMITED NM COMPARISON: Plain radiographs dated June 26, 2021 FINDINGS: The patient was injected with 25.3 mCi technetium 99 M MDP. Spot planar images of the knees were obtained after an approximate 3 are delayed. There is mild increased tracer activity in the right knee which may be degenerative. There is increased tracer activity in the distal left femur and proximal left tibia adjacent to the knee arthroplasty. This is favored to be reactive and is nonspecific. IMPRESSION: Nonspecific increased tracer activity adjacent to left knee arthroplasty is favored to be reactive. Reviewed, Interpreted and Dictated by Mike Macias III, MD Transcribed by Bret Enriquez Authenticated by Mike Macias III, MD on 07/22/2021 03:19:40 PM [facility]
== END ==
PROVIDERS: PCP Emergency Medicine; Visit Provider Orthopaedic Surgery
DX: M25.562 Pain in left knee (principal); S80.02XA Contusion of left knee, initial encounter
CPT/HCPCS: 78300; A9503

== ENCOUNTER → 2022-09-28 13:33 | Outpatient (CLI) | payer MEDICARE, MEDICAID, SELFPAY ==
--- NOTE | 2022-09-28 14:01 | CA_ITS ---
FINAL REPORT TECHNIQUE: Compression mast scale and Doppler evaluation CLINICAL HISTORY: LLE EDEMA COMPARISON: None FINDINGS: Femoral and popliteal veins show normal compressibility and flow. Visualized portion of the calf veins are patent by Doppler exam. IMPRESSION: No evidence of left lower extremity deep venous thrombosis Reviewed, Interpreted and Dictated by Tono Nielsen MD Transcribed by Iva Mendes Authenticated and [facility]
== END ==
PROVIDERS: PCP Nurse Practitioner Family; Visit Provider Nurse Practitioner Family
DX: R06.02 Shortness of breath; M79.605 Pain in left leg; R60.0 Localized edema
CPT/HCPCS: 93971

== ENCOUNTER 2023-05-20 11:22 | Outpatient (CLI) | payer MEDICARE, MEDICAID, SELFPAY ==
[2023-05-20 11:48] LABS: Basophils % 0.3 % (0.1-2.0); Eosinophils % 0.3 % (0.1-12.0); Hematocrit 34.3 % (37.0-47.0); Hemoglobin 10.8 g/dL (12.2-16.2); Lymphocytes # 1.6 K/mm3 (0.7-4.5); Lymphocytes % 23.5 % (10-50); Mean Corpuscular HGB Conc 31.4 g/dL (31.8-35.4); Mean Corpuscular Hemoglobin 28.5 pg (27.0-31.2); Mean Corpuscular Volume 90.6 fl (81-99); Mean Platelet Volume 8.5 fl (7.4-10.4); Monocytes # 0.6 K/mm3 (0.1-1.0); Monocytes % 9.4 % (1.7-9.3); Neutrophils # 4.4 K/mm3 (1.8-7.8); Neutrophils % 66.5 % (37.0-80.0); Platelet Count 135 K/mm3 (142-424); Red Blood Count 3.79 M/mm3 (4.20-5.40); Red Cell Distribution Width 16.2 % (11.5-17.5); White Blood Count 6.6 K/mm3 (4.8-10.8)
[2023-05-20 12:24] LABS: Chloride 109 mmol/L (98-107); Sodium 140 mmol/L (136-145)
[2023-05-20 12:25] LABS: Potassium 5.3 mmoL/L (3.5-5.1)
[2023-05-20 12:27] LABS: Anion Gap 10.3 mEq/L (5-15); Blood Urea Nitrogen 57 mg/dl (7-17); Carbon Dioxide 26 mmol/L (22.0-30.0); Estimated Glomerular Filt Rate 16 ml/min (>60); GFR (African American) 19 ML/MIN (>60)
[2023-05-20 12:28] LABS: Glucose 144 mg/dl (74-100)
== END 2023-05-20 23:59 ==
PROVIDERS: PCP Internal Medicine Adolescent Medicine; Visit Provider Internal Medicine Adolescent Medicine
DX: M62.81 Muscle weakness (generalized) (principal); R13.12 Dysphagia, oropharyngeal phase; E11.40 Type 2 diabetes mellitus with diabetic neuropathy, unspecified; Z79.899 Other long term (current) drug therapy; I10 Essential (primary) hypertension
CPT/HCPCS: 80048; 85025

== ENCOUNTER 2023-05-21 16:47 | Outpatient (CLI) | payer MEDICARE, MEDICAID, SELFPAY ==
[2023-05-21 21:05] LABS: Chloride 110 mmol/L (98-107); Potassium 4.8 mmoL/L (3.5-5.1); Sodium 139 mmol/L (136-145)
[2023-05-21 21:08] LABS: Anion Gap 9.8 mEq/L (5-15); Blood Urea Nitrogen 53 mg/dl (7-17); Calcium 8.7 mg/dl (8.4-10.2); Carbon Dioxide 24 mmol/L (22.0-30.0); Estimated Glomerular Filt Rate 26 ml/min (>60); GFR (African American) 32 ML/MIN (>60); Glucose 146 mg/dl (74-100)
== END 2023-05-21 23:59 ==
PROVIDERS: PCP Internal Medicine Adolescent Medicine; Visit Provider Internal Medicine Adolescent Medicine
DX: M62.81 Muscle weakness (generalized) (principal); N18.30 Chronic kidney disease, stage 3 unspecified
CPT/HCPCS: 80048

== ENCOUNTER 2023-10-06 13:04 | Outpatient (POV) | payer MEDICARE, MEDICAID, SELFPAY ==
--- OUTSIDE RECORDS SUMMARY | 2023-10-06 13:07 | XMS_ITS | Continuity of Care Document ---
Author Organization [address] [place] [address] Address [address] [facility] [address] [place] [address] Phone Care Team Providers Care Complaint Coordinator Name Role Phone Lina CHEEK, Katelynn Unavailable Unavailabl e Allergies, Adverse Reactions, Alerts Substance Reaction Status Criticality prochlorperazine Active No Informat ion pentazocine Active No Information lithium Active No Information Medications Medication Instructions Dosage Effective Dates (start - stop) Status Comments Acid Gone Antacid 95 mg-358 mg/15 mL oral suspension - Active docusate sodium 100 mg capsule - Active Farxiga 10 mg tablet - Activ e acetaminophen 500 mg tablet - Active aspirin 81 mg chewable tablet - Active calcium carbonate 600 mg-vitamin D3 5 mcg (200 unit) tablet - Active ropinirole 0.25 mg tablet - Active polyethylene glycol 3350 17 gram/dose oral powder - Active ibuprofen 400 mg tablet - Ac tive sodium chloride 0.9 % intravenous solution - Active ondansetron HCl 4 mg tablet - Active meloxicam 15 mg tablet - Act josafat furosemide 20 mg tablet - Ac tive insulin glargine-yfgn (U-100) 100 unit/mL subcutaneous solution - Active amitriptyline 25 mg tablet - Active tramadol 50 mg tablet - Acti ve BD AutoShield Duo Pen Needle 30 gauge x 3/16 - Active Lagevrio 200 mg capsule (EUA) - Active Basaglar KwikPen U-100 Insulin 100 unit/mL (3 mL) subcutaneous - Active lactulose 10 gram/15 mL oral solution - Active levofloxacin 250 mg tablet - Active levofloxacin 500 mg tablet - Active gabapentin 100 mg capsule - Active trazodone 50 mg tablet - Act josafat amlodipine 5 mg tablet - Act josafat aripiprazole 30 mg tablet - Active atorvastatin 20 mg tablet - Active bupropion HCl SR 150 mg tablet,12 hr sustained-release - Active clopidogrel 75 mg tablet - A ctive doxepin 10 mg capsule - Acti ve lisinopril 5 mg tablet - Act josafat metformin 500 mg tablet - Ac tive omeprazole 40 mg capsule,delayed release - Active oxybutynin chloride ER 10 mg tablet,extended release 24 hr - Active sertraline 100 mg tablet - A ctive trazodone 100 mg tablet - Ac tive bupropion HCl XL 150 mg 24 hr tablet, extended release - Active hydrocodone 5 mg-acetaminophen 325 mg tablet - Active Novofine Autocover 30 gauge x 1/3 needle - Active loperamide 2 mg capsule - Ac tive aripiprazole 20 mg tablet - Active aripiprazole 15 mg tablet - Active aripiprazole 10 mg tablet - Active cephalexin 500 mg capsule - Active sertraline 50 mg tablet - Ac tive Procedures Procedure Date REMOVE IMPACTED EAR WAX Compsve Oral Eval- New/Est Pat Herbert-26-20 24 Complete Series Of Radiographic Images J un-26-2024 PARING/CUTG B9 HYPRKER LES 1 DEBRIDE NAIL 6 OR MORE PARING/CUTG B9 HYPRKER LES 1 DEBRIDE NAIL 6 OR MORE Low extemity neur exam docum FULL FIELD ERG W/I&R NURSING FAC CARE SUBSEQ Compsve Oral Eval- New/Est Pat FUNDUS PHOTOGRAPHY SBSQ NF CARE MODERATE MDM 30 DEBRIDE NAIL 6 OR MORE NURSING FAC CARE SUBSEQ Low extemity neur exam docum TRIM SKIN LESION DEBRIDE NAIL 6 OR MORE Diabetic Foot Exam Performed FULL FIELD ERG W/I&R NURSING FAC CARE SUBSEQ EYE EXAM & TREATMENT Periodic Oral Evaluation HEARING SERVICE, MISCELLANEOUS TRIM SKIN LESION DEBRIDE NAIL 6 OR MORE Diabetic Foot Exam Performed Vision svcs frames purchases FITTING OF SPECTACLES DETERMINATION OF REFRACTIVE STATE Lens spher bifoc plano 4.00d NURSING FAC CARE SUBSEQ FUNDUS PHOTOGRAPHY ECHO EXAM OF EYE THICKNESS EYE EXAM & TREATMENT DEBRIDE NAIL 6 OR MORE Diabetic Foot Exam Performed DEBRIDE NAIL 6 OR MORE Diabetic Foot Exam Performed NURSING FAC CARE SUBSEQ ERG w/ interpretation EYE EXAM & TREATMENT DEBRIDE NAIL 6 OR MORE TRIM SKIN LESION Compsve Oral Eval- New/Est Pat 22 DEBRIDE NAIL 6 OR MORE FUNDUS PHOTOGRAPHY EYE EXAM & TREATMENT ERG w/ interpretation NURSING FAC CARE SUBSEQ TRIM NAIL(S) DEBRIDE NAIL 6 OR MORE NURSING FAC CARE SUBSEQ HEARING SERVICE, MISCELLANEOUS EYE EXAM NEW PATIENT FUNDUS PHOTOGRAPHY NURSING FAC CARE SUBSEQ Advance Directives Directive Yes / No Effective Date File Name No Information Encounters Encounter Description Practice Location Reason(s) For Visit Diagnoses Date Provider Providers Copied on Encounter [address] [place] [address], [address] [place] [address], [place], [place], [id number], tel:[phone] [place] Impacted cerumen, bilateral 4 Lina Pace. , [place]. Referring Provider: Marcio Melo. [address] [place] [address], [address] [place] [address], [place], [place], [id number], tel:[phone] [place] Encounter for dental examination and cleaning without abnormal findings 4 Steven Landa. [address] [place] [address], [address], [place], [place], [id number], . tel:[phone] Referring Provider: Marcio Melo. [address] [place] [address], [address] [place] [address], [place], [place], [id number], tel:[phone] [place] Tinea unguiumType 2 diabetes w diabetic peripheral angiopath w/o gangreneCorns and callosities 4 Christian Jaquez [address] [facility], [address], [place], [place], [facility], . Referring Provider: Rainer Asher. [address] [place] [address], [address] [place] [address], [place], [place], [id number], tel:[phone] [place] No Information 4 Christian Jaquez [address] [facility], [address], [place], [address], [place]. [facility] [place], [address] [facility], [place], [place], [id number], [place] tel:[phone] [place] Corns and callositiesTine a unguiumType 2 diabetes w diabetic peripheral angiopath w/o gangrene Feb- 4 Christian Cummings. [address] [facility], [address], [place], [address], [place]. Referring Provider: Rainer Asher. NURSING FAC CARE SUBSEQ [facility], [address] [place], [place] [address] [address], [place], [place], [id number], [place] tel:[phone] [place] Medical eye problem (chief complaint) Hypertensive retinopathy, bilateral Dec-2 3 Kristie Romano. [address] [facility], [place], [address], [place]. tel:[phone] Referring Provider: Marcio Melo. [address] [place] [address], [address] [place], [place] [address], [place], [place], [id number], [place] tel:[phone] [place] Encounter for dental examination and cleaning without abnormal findings Dec-0 3 Angel Payne. [address] [facility], [address], [place], [place], [id number], [place]. tel:[phone] Referring Provider: Marcio Melo. [facility] MODERATE MDM 30 [facility], [address] [place], [place] [address], [place], [place], [id number], [place] tel:[phone] [place] Glaucoma, suspect (chief complaint) Open angle with borderline findings, high risk, bilateralAge-re lated nuclear cataract, bilateralType 2 diabetes mellitus without complications Oct-2 3 Mack Mendoza. [address] [facility], [address], [place], [address], [place]. Referring Provider: Marcio Melo. NURSING FAC CARE SUBSEQ [facility], [address] [place], [place] [address], [place], [place], [id number], [place] tel:[phone] [place] Abrasion, left lesser toe(s), initial encounterTinea unguiumType 2 diabetes w diabetic peripheral angiopath w/o gangrene 3 Christian Cummings. [address] [facility], [address], [place], [address], [place]. [address] [place] [address], [id number] [place] [address], [place], [place], [id number], [place] tel:[phone] [place] Tinea unguiumType 2 diabetes w diabetic peripheral angiopath w/o gangreneCorns and callosities 3 Christian Cummings. [address] [facility], [address], [place], [address], [place]. Referring Provider: Rainer Asher. NURSING FAC CARE SUBSEQ [address] [place] [address], [address] [place] [address], [place], [place], [id number], [place] tel:[phone] [place] Medical eye problem (chief complaint) Hypertensive retinopathy, bilateral 3 Kristie Romano. [address] [facility], [place], [address], [place]. tel:[phone] Referring Provider: Marcio Melo. [address] [place] [address], [address] [place] [address], [place], [place], [id number], [place] tel:[phone] [place] Glaucoma, suspect (chief complaint) Open angle with borderline findings, high risk, bilateralType 2 diabetes mellitus without complicationsAg e-related nuclear cataract, bilateral 3 Mack Mendoza. [address] [facility], [facility], [place], [address], [place]. Referring Provider: Marcio Melo. [address] [place] [address], [address] [place] [address], [place], [place], [id number], [place] tel:[phone] [place] No Information 3 [facility] , [place]. [address] [place] [address], [address] [place] [address], [place], [place], [id number], [place] tel:[phone] [place] Encounter for dental examination and cleaning without abnormal findings 3 [facility] , [place]. Referring Provider: Marcio Melo. [address] [place] [address], [address] [facility] [address], [place], [place], [id number], [place] tel:[phone] [place] Encounter for examination of ears and hearing without abnormal findings 3 Bridgett [place], [place]. Referring Provider: Marcio Melo. [address] [place] [address], [address] [place] [address], [place], [place], [id number], [place] tel:[phone] [place] Corns and callositiesTine a unguiumType 2 diabetes w diabetic peripheral angiopath w/o gangrene 3 Christian Cummings. [address] [facility], [address], [place], [address], [place]. Referring Provider: Rainer Asher. [address] [place] [address], [address] [place], [place] [address], [place], [place], [id number], tel:[phone] [place] Presbyopia 3 [place], [place]. NURSING FAC CARE SUBSEQ [address] [place] [address], [address] [place] [address], [place], [place], [id number], [place] tel:[phone] [place] hearing loss (chief complaint) Unspecified hearing loss, bilateral b-0 3 Alexy-Hard sera Genia. [address] [facility], [address], [place], [address], [place]. Referring Provider: Marcio Melo. [address] [place] [address], [address] [place], [place] [address], [place], [place], [id number], [place] tel:[phone] [place] Diabetic eye exam (chief complaint) Glaucoma, suspect (chief complaint) Open angle with borderline findings, high risk, bilateralVitreo us degeneration, left eyeHypertensive retinopathy, bilateral 2 [place], [place]. Referring Provider: Marcio Melo. [address] [place] [address], [address] [place], [place] [address], [place], [place], [id number], [place] tel:[phone] [place] Tinea unguiumType 2 diabetes w diabetic peripheral angiopath w/o gangrene 2 Christian Cummings. [address] [facility], [address], [place], [address], [place]. Referring Provider: Rainer Mcdowell. NURSING FAC CARE SUBSEQ [address] [place] [address], [address] [facility] [address], [place], [place], [id number], [place] tel:[phone] [place] Tinea unguiumType 2 diabetes w diabetic peripheral angiopath w/o gangreneHallux valgus (acquired), right foot 2 Christian Cummings. [address] [facility], [address], [place], [address], [place]. Referring Provider: Marcio Melo. [address] [place] [address], [address] [place], [place] [address], [place], [place], [id number], [place] tel:[phone] [place] Diabetic eye exam (chief complaint) Type 2 diabetes mellitus with mild nonproliferativ e diabetic retinopathy without macular edema, bilateral 2 Kristie Romano. [address] [facility], [place], [address], [place]. tel:[phone] Referring Provider: Marcio Melo. [address] [place] [address], [address] [place] [address], [place], [place], [id number], [place] tel:[phone] [place] Glaucoma, suspect (chief complaint) Type 2 diabetes mellitus without complicationsOp en angle with borderline findings, high risk, bilateralDry eye syndrome of bilateral lacrimal glands 2 Mack Mendoza. [address] [facility], [address], [place], [address], [place]. Referring Provider: Marcio Melo. [address] [place] [address], [address] [place] [address], [place], [place], [id number], [place] tel:[phone] [place] Type 2 diabetes w diabetic peripheral angiopath w/o gangreneTinea unguiumCorns and callosities 2 [place], [place]. Referring Provider: Malak Truong. [address] [place] [address], [address] [place] [address], [place], [place], [id number], [place] tel:[phone] [place] Encounter for dental exam and cleaning w/o abnormal findings 2 Angel Payne. [address] [facility], [address], [place], [place], [id number], [place]. tel:[phone] Referring Provider: Marcio Melo. [address] [place] [address], [address] [place] [address], [place], [place], [id number], [place] tel:[phone] [place] Type 2 diabetes mellitus without complicationsTi dimas unguium 2 [place]. Referring Provider: Marcio Melo. [address] [place] [address], [address] [facility] [address], [place], [place], [id number], [place] tel:[phone] [place] Glaucoma, suspect (chief complaint) Open angle with borderline findings, high risk, bilateralType 2 diabetes mellitus without complications 2 Mack Mendoza. [address] [facility], [address], [place], [address], [place]. Referring Provider: Marcio Melo. [address] [place] [address], [id number] [place] [address], [place], [place], [id number], [place] tel:[phone] [place] No Information 1 [place], [place]. [address] [place] [address], [address] [facility] [address], [place], [place], [id number], [place] tel:[phone] [place] Glaucoma (chief complaint) Glaucoma, suspect (chief complaint) Open angle with borderline findings, high risk, bilateral Oct-1 - 1 Kristie Romano. [address] [facility], [place], [address], [place]. tel:[phone] Referring Provider: Marcio Melo. NURSING FAC CARE SUBSEQ [address] [place] [address], [address] [facility] [address], [place], [place], [id number], [place] tel:[phone] [place] ear care exam (chief complaint) Unspecified hearing loss, bilateral Oct-0 1 Alexy-Hard sera Genia. [address] [facility], [address], [place], [address], [place]. Referring Provider: Marcio Melo. [address] [place] [address], [address] [place] [address], [place], [place], [id number], tel:[phone] [place] Tinea unguiumType 2 diabetes mellitus without complications Sep-2 1 [place]. Referring Provider: Marcio Melo. NURSING FAC CARE SUBSEQ [address] [place] [address], [address] [place] [address], [place], [place], [id number], [place] tel:[phone] [place] Tinea unguiumAbrasion , right lesser toe(s), initial encounterFlat foot [pes planus] (acquired), unspecified footType 2 diabetes mellitus without complications Sep-2 1 [place]. Referring Provider: Marcio Melo. [address] [place] [address], [address] [place] [address], [place], [place], [id number], tel:[phone] [place] Unspecified hearing loss, bilateral Herbert- 1 Dupree Marlenaci. [address] [place] [address], [address], [place], [place], [id number], [place]. tel:[phone] Referring Provider: Marcio Melo. [address] [place] [address], [address] [place] [address], [place], [place], [id number], tel:[phone] [place] Medical eye problem (chief complaint) Diabetic eye exam (chief complaint) Type 2 diabetes mellitus without complicationsOp en angle with borderline findings, high risk, bilateral May-0 1 Kristie Romano. [address] [place] [address], [place], [address], [place]. tel:[phone] Referring Provider: Marcio Melo. NURSING FAC CARE SUBSEQ [address] [place] [address], [address] [place] [address], [place], [place], [id number], [place] tel:[phone] [place] hearing loss (chief complaint) Unspecified hearing loss, bilateral Apr-2 1 George-Emeka Cormier. [address] [facility], [address], [place], [address], . Referring Provider: Marcio Melo. Family History Family Member Type Diagnosis Age At Onset No Information Payers Payer name Insurance type Covered libertarian ID Authoriza tion(s) Medicare [facility] [id number] Medicaid [facility] [id number] Social History Type Description Quantity Date Captured Comments Alcohol Use Details Unknown Caffeine Use Details Unknown Tobacco Use Status No Information Smoking Status No Information Sex Female Chief Complaint And Reason For Visit No Information Reason For Referral Reason For Referral No Information Plan Of Treatment Date Type Action Status Appointment Faby Palm BOOKED Patient Education Learning About Dental Care and Your Health Problem completed Patient Education Dental X-Ray: About Thi s Test completed Patient Education Learning About Dental Care and Your Health Problem completed Patient Education Learning About Dental Care and Your Health Problem completed Patient Education Learning About Your Ear s completed Patient Education Learning About Dental Care and Your Health Problem completed Patient Education Learning About Your Ear s completed Patient Education Diabetes Foot Health: C are Instructions completed Patient Education Reduced Vision: Care In structions completed Patient Education Learning About Your Ear s completed History Of Present Illness Encounter Date Complaint History Of Prese nt Illness Medical eye problem The 72 year old patient presents for evaluation of Medical eye problem in the right eye and left eye. ERG to measure HTN ret changes compared to last Glaucoma, suspect The 72 year ol d patient presents for evaluation of Glaucoma, suspect in the right eye and left eye. It occurs doing close work. The onset was gradual. It affects near vision. Medical eye problem The 72 year old patient presents for evaluation of Medical eye problem in the right eye and left eye. ERG for HTN ret Glaucoma, suspect The 72 year ol d patient presents for evaluation of Glaucoma, suspect in the right eye and left eye. It occurs doing close work. The onset was gradual. Glaucoma, suspect Diabetic eye exam The 71 year ol d female presents for evaluation of Diabetic eye exam in the right eye and left eye. It occurs always. The onset was gradual. The symptom is constant. Diabetic eye exam The 71 year ol d female presents for evaluation of Diabetic eye exam in the right eye and left eye. ERG Glaucoma, suspect The 71 year ol d female presents for evaluation of Glaucoma, suspect in the right eye and left eye. It occurs all the time. The onset was progressive. It affects near vision. The symptom is constant. Says she has specs but cant read out of them. Eyes are watery Glaucoma, suspect The 70 year ol d female presents for evaluation of Glaucoma, suspect in the right eye and left eye. It occurs all the time. The onset was progressive. It affects both near and far vision. The symptom is frequent. The condition is moderate. Oct- Glaucoma Oct- Glaucoma, suspect The patient is present for evaluation of Glaucoma, suspect in the right eye and left eye. ERG Medical eye problem The 69 year old female presents for evaluation of Medical eye problem in the right eye.Floater RE x 2 yrs. no flashes. vision fine Diabetic eye exam The patient is present for evaluation of Diabetic eye exam in the right eye and left eye. Functional Status Date Functional Assessmen t No Information Instructions Date Instruction Additional Infor mishel Performed cerumen re moval as per protocol. AU cleared. Follow up for reevaluation for chronic cerumen impaction. Would recommend audiology referral at this time for evaluation patient wishes to pursue. Related to Impacted cerumen, bilateral All of the calluses were debrided/pared to prevent further tissue breakdown and pain. Related to Corns and callosities Toenails 1-5 b/l wer e debrided in length and thickness without incident. Follow up in 2-3 months. Related to Tinea unguium Toenails 1-5 b/l wer e debrided in length and thickness without incident. Follow up in 2-3 months. Related to Tinea unguium All of the calluses were debrided/pared to prevent further tissue breakdown and pain. Related to Corns and callosities Impression/Plan - im proved ERG/Monitor Related to Hypertensive retinopathy, bilateral Oct We will schedule a f ollow up appointment in 6-9 months for a dilated fundus exam. Related to Open angle with borderline findings, high risk, bilateral Oct Follow up - We will schedule a follow up appointment in 6-9 months for a dilated fundus exam. Related to Open angle with borderline findings, high risk, bilateral Oct- Impression/Plan - David rderline Glaucoma findings; No treatment indicated at this time; Further testing needed to assess risk of developing glaucoma. Related to Open angle with borderline findings, high risk, bilateral Oct Impression/Plan - Ca taracts are mild; we will monitor for progression. Related to Age-related nuclear cataract, bilateral Impression/Plan - No active diabetic retinopathy present in either eye. We will monitor at regular intervals. Related to Type 2 diabetes mellitus without complications Discussed with the p atient. No dressing needed at this time. Monitor for infection. Related to Abrasion, left lesser toe(s), initial encounter Toenails 1-5 b/l wer e debrided in length and thickness without incident. Follow up in 2-3 months. Related to Tinea unguium All of the calluses were debrided/pared to prevent further tissue breakdown and pain. Related to Corns and callosities Toenails 1-5 b/l wer e debrided in length and thickness without incident. Follow up in 2-3 months. Related to Tinea unguium Impression/Plan - Mi ld retinal vascular changes consistent with hypertension. Minimal occlusive risk. Related to Hypertensive retinopathy, bilateral Impression/Plan - Ca taracts are mild; we will monitor for progression. Related to Age-related nuclear cataract, bilateral Impression/Plan - No active diabetic retinopathy present in either eye. We will monitor at regular intervals. Related to Type 2 diabetes mellitus without complications Impression/Plan - David rderline Glaucoma findings; No treatment indicated at this time; Further testing needed to assess risk of developing glaucoma. Higher IOP today, need to watch closely Related to Open angle with borderline findings, high risk, bilateral See prn for complaints Related t o Encounter for examination of ears and hearing without abnormal findings Toenails 1-5 b/l wer e debrided in length and thickness without incident. Follow up in 2-3 months. Related to Tinea unguium All of the calluses were debrided/pared to prevent further tissue breakdown and pain. Related to Corns and callosities Recommend referral t o audiology per patient's request. Follow up prn. Related to Unspecified hearing loss, bilateral Return in 6-9 months for IOP deidre ck. Related to Open angle with borderline findings, high risk, bilateral Follow up - Return i n 6-9 months for IOP check. Related to Open angle with borderline findings, high risk, bilateral Impression/Plan - David rderline Glaucoma findings; No treatment indicated at this time; Further testing needed to assess risk of developing glaucoma. Pachymetry today reveals normal thickness OD, thin cornea OS Related to Open angle with borderline findings, high risk, bilateral Impression/Plan - Vi treous floaters are present; however, no holes, breaks, or tears are evident. Related to Vitreous degeneration, left eye Impression/Plan - Mi ld retinal vascular changes consistent with hypertension. Minimal occlusive risk. Related to Hypertensive retinopathy, bilateral Toenails 1-5 b/l wer e debrided in length and thickness without incident. Follow up in 2-3 months. Related to Tinea unguium Recommend shoes that are wider to accommodate the bunion deformity. Related to Hallux valgus (acquired), right foot Toenails 1-5 b/l wer e debrided in length and thickness without incident. Follow up in 2-3 months. Related to Tinea unguium Impression/Plan - Ch anges in ERG. Repeat 3 mths. Ret eval next Related to Type 2 diabetes mellitus with mild nonproliferative diabetic retinopathy without macular edema, bilateral We will schedule a f ollow up appointment in 6-9 months for a dilated fundus exam. Related to Dry eye syndrome of bilateral lacrimal glands Impression/Plan - No active diabetic retinopathy present in either eye. We will monitor at regular intervals. Related to Type 2 diabetes mellitus without complications Impression/Plan - David rderline Glaucoma findings; No treatment indicated at this time; Further testing needed to assess risk of developing glaucoma. Good iop today, stable onhs size Related to Open angle with borderline findings, high risk, bilateral Follow up - We will schedule a follow up appointment in 6-9 months for a dilated fundus exam. Related to Dry eye syndrome of bilateral lacrimal glands Impression/Plan - Dr y eye syndrome is significant; treat with artificial tears solution; 1 drop both eyes twice per day. Related to Dry eye syndrome of bilateral lacrimal glands Nails 1-5 debrided b /l without incident. Follow up in 2-3 months Related to Tinea unguium All of the calluses were debrided/pared to prevent further tissue breakdown and pain. Related to Corns and callosities Nails 1-5 debrided b /l without incident. Follow up in 2-3 months Related to Tinea unguium We will schedule a f ollow up appointment in 6-9 months for a dilated fundus exam. Related to Type 2 diabetes mellitus without complications Impression/Plan - David rderline Glaucoma findings; No treatment indicated at this time; Further testing needed to assess risk of developing glaucoma. 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 Related to Type 2 diabetes mellitus without complications Impression/Plan - No active diabetic retinopathy present in either eye. We will monitor at regular intervals. Related to Type 2 diabetes mellitus without complications Impression/Plan - David rderline Glaucoma findings; No treatment indicated at this time; Further testing needed to assess risk of developing glaucoma. 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 Related to Unspecified hearing loss, bilateral Nails 1-5 debrided b /l without incident. Follow up in 2-3 months Related to Tinea unguium Nails 1-5 debrided b /l without incident Related to Tinea unguium Impression/Plan - No active diabetic retinopathy present in either eye. We will monitor at regular intervals. Related to Type 2 diabetes mellitus without complications Impression/Plan - David rderline Glaucoma findings; No treatment indicated at this time; Further testing needed to assess risk of developing glaucoma. 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 Follow up in 6-9 months or sooner if needed. Related to Unspecified hearing loss, bilateral Assessments Type Assessment Date assessment Impacted imani, bilateral Patient Care Teams Name Effective Dates (start - stop) Status Members No Information
[2023-10-06 13:28] VITALS: BP 112/61; PULSE 62; RESP 18; O2SAT 95; BMI 34.9
--- NOTE | 2023-10-06 13:48 | A.OFFVIS_ITS ---
HPI Data of Consult Patient: new to practice Consult date: 10/06/23 Requesting Physician: Carmen Boyd APRN Primary Care Provider: Rainer Asher MD Consult Narrative Reason for consult: Bilateral knee pain History of present illness: Ms. Palm is a 73 year old female who presents today as a new patient. She is a referral from [facility]'s office. Today she rates her pain a 9 out of 10. Patient states she has pain throughout her bilateral knees. She does state that her left knee is the worsening and that this joint has been replaced years ago. She states that initially that procedure did help however over time she has continued to have worsening pain. Patient denies any prior surgery in her right knee and denies any injection history. Patient does state the pain is a constant aching, throbbing sensation that is worse with increased activity however does affect her ability to even ambulate. Patient is interested in any help we may be able to provide. Patient has tried Tylenol along with Aspercreme and other topicals with no additional relief. [facility] Patient has tried continued home exercise and stretching for longer than 6 weeks. Patient does state this is been going on for longer than 6 months. Her Kristopher has been reviewed and is appropriate. CC: Carmen Boyd APRN [facility] Disclaimer: The information contained in this section may have been updated after the patient was seen, as this information can be updated by other users. Medical History (Updated 10/06/23 @ 13:51 by Carmen Boyd APRN) Depression Facial laceration Multiple bruises Fall from bed Contusion of right hip Puncture wound of forehead Traumatic hematoma of forehead Suicidal ideation Pre-operative cardiovascular examination Contusion of left hip Knee contusion Skin tear of forearm without complication Multiple falls Concussion without loss of consciousness Scalp laceration Fracture of rib of right side Contusion of rib on left side Malaise and fatigue Dehydration Elevated left ventricular end-diastolic pressure (LVEDP) Unstable angina pectoris Atypical chest pain Bronchitis Acute kidney injury Sinus bradycardia Renal insufficiency Shingles rash Family History (Updated 10/06/23 @ 13:29 by Rachel Maria RN) Other Unknown family medical history Social History (Updated 10/06/23 @ 13:45 by Rachel Maria RN) Smoking Status: Never smoker alcohol intake: never substance use type: denies use current occupational status: disabled Travel in the last 8 weeks: None household members: other housing: longterm caffeine: No Review of Systems Review of Systems Review of systems:: pertinent systems reviewed and negative unless documented below Review of systems (narrative): Review of Systems: General: No recent weight changes, no fever, no sleep disturbances Respiratory: No cough, no shortness of air, no recurring pulmonary infections Cardiovascular/peripheral vascular: No chest pain, no palpitations, no edema, no shortness of breath Gastrointestinal: No new onset incontinence, normal bowel movements reported Genitourinary: No new onset incontinence Musculoskeletal: Bilateral knee pain Psychiatric: [Normal mood/affect] Neurological: [Denies weakness in extremities], [denies balance issues] Meds Home Medications and Allergies Home Medications ?Medication ?Instructions ?Recorded ?Confirmed ?Type atorvastatin 20 mg tablet 20 mg PO HS Cholesterol 02/17/18 08/18/22 History sertraline 100 mg tablet 200 mg PO DAILY mood 02/17/18 08/18/22 History calcium carbonate-vitamin D3 600 1 each PO BID Supplement 09/29/19 08/18/22 History mg-125 unit tablet clopidogrel 75 mg tablet 75 mg PO DAILY antiplatelet 09/29/19 08/18/22 History doxepin 10 mg capsule 30 mg PO HS sleep 09/29/19 08/18/22 History insulin glargine 100 unit/mL (3 35 unit SQ HS Diabetes 09/29/19 08/18/22 History mL) subcutaneous pen metformin 500 mg tablet 500 mg PO DAILY Diabetes 09/29/19 08/18/22 History omeprazole 40 mg capsule,delayed 40 mg PO DAILY acid reflux 09/29/19 08/18/22 History release oxybutynin chloride 10 mg 10 mg PO DAILY overactive bladder 09/29/19 08/18/22 History tablet,extended release 24 hr aripiprazole 30 mg tablet 30 mg PO DAILY mood 05/17/20 08/18/22 History aspirin 81 mg chewable tablet 81 mg PO DAILY heart health 05/17/20 08/18/22 History bupropion HCl 150 mg 24 hr tablet, 150 mg PO DAILY Depression 05/17/20 08/18/22 History extended release trazodone 100 mg tablet 100 mg PO HS Insomnia 05/17/20 08/18/22 History acetaminophen 500 mg tablet 500 mg PO Q6H PRN pain 06/03/20 08/18/22 History (Tylenol Extra Strength) amlodipine 5 mg tablet 2.5 mg (1/2 x 5 mg) PO DAILY 06/03/20 08/18/22 Rx Hypertension #15 tabs docusate sodium 100 mg capsule 100 mg PO DAILY constipation 06/03/20 08/18/22 History (Colace) lactulose 20 gram/30 mL oral 20 g PO BID constipation 06/03/20 08/18/22 History solution lisinopril 5 mg tablet 2.5 mg (1/2 x 5 mg) PO DAILY 06/03/20 08/18/22 Rx Hypertension #15 tabs polyethylene glycol 3350 17 17 g PO DAILY constipation 06/03/20 08/18/22 History gram/dose oral powder (Miralax) zinc acetate 25 mg (zinc) capsule 25 mg PO DAILY supplement 06/03/20 08/18/22 History (Galzin) gabapentin 100 mg capsule 100 mg PO BID Pain #60 caps 08/18/22 08/18/22 Rx tramadol 50 mg tablet 50 mg PO BID PRN pain #60 tabs 09/03/22 Rx New Prescriptions to Start Prescriptions: Allergies Allergy/AdvReac Type Severity Reaction Status Date / Time pentazocine [PENTAZOCINE] Allergy Intermediate CRAZY Verified 08/18/22 21:22 prochlorperazine Allergy Intermediate ITCHING Verified 08/18/22 21:22 [PROCHLORPERAZINE] lithium [LITHIUM] Allergy Unknown Verified 08/18/22 21:22 Objective Narrative: Physical Exam: General: Alert and oriented x3, no acute distress, pleasant and cooperative Lungs: Respirations even and unlabored, symmetrical chest expansion Eyes: PERRL Musculoskeletal: Flexion and extension of bilateral knees somewhat guarded secondary to pain, [antalgic gait noted] Neurological: Speech clear, no gross sensory deficit Assessment and Plan *Assessment and plan (1) Bilateral knee pain: Status: Acute Qualifiers: Chronicity: chronic Qualified Code(s): M25.561 - Pain in right knee; M25.562 - Pain in left knee; G89.29 - Other chronic pain Category: Medical Code(s): M25.561 - Pain in right knee; M25.562 - Pain in left knee Plan patient is experiencing significant pain in her bilateral knees with limited range of motion. Patient did have a left total knee replacement and is not a candidate for intra-articular . I did discuss with the patient due to her extent of pain that she may benefit from a right intra-articular injection and a left infrapatellar nerve block. Risk and benefits of both of these injections were discussed with the patient and she would like to proceed forward with this plan of care. Patient has tried and failed conservative therapy including oral medications, heat and ice and topicals as well as continued at home exercise and stretching for longer than 6 weeks. We will schedule the patient for a right intra-articular knee injection and left infrapatellar nerve block. patient has been instructed to contact the clinic with any concerns before the next appointment. Dr. Smith has reviewed this note and agrees with this plan of care. This note was dictated using voice recognition software and make contain errors or omissions. All injections are used with Lidocaine or Bupivacaine and Depo Medrol.
== END 2023-10-06 23:59 | disposition home or self-care (01) ==
LOC: SC.PAIN 13:05
PROVIDERS: PCP Internal Medicine Adolescent Medicine; Visit Provider Nurse Practitioner Family
DX: M25.561 Pain in right knee (principal); M25.562 Pain in left knee; G89.29 Other chronic pain; Z96.652 Presence of left artificial knee joint; Z79.899 Other long term (current) drug therapy
CPT/HCPCS: 99202; G0463

== ENCOUNTER 2023-10-19 11:32 | Day surgery (SDC) | payer MEDICARE, MEDICAID, SELFPAY ==
[2023-10-19 11:46] VITALS: BP 147/92; PULSE 59; RESP 16; TEMP 36.2; O2SAT 96; BMI 35.2
[2023-10-19 11:58] LABS: POC Glucose,Bedside 126 (70-110)
[2023-10-19 12:18] VITALS: BP 140/68; PULSE 62; RESP 16; O2SAT 96
--- NOTE | 2023-10-19 12:21 | P.PCN_ITS ---
Procedure Date: 10/19/23 Time: 12:00 Anesthesiologist:: Thong Pelaez CRNA Complications:: None Pre-procedure Diagnosis:: DJD right knee. Chronic right knee pain. Chronic left knee pain following left TKA. Post-procedure Diagnosis:: Same. Indications for Procedure:: Patient is a pleasant 73-year-old female comes our clinic today for right intra- articular knee injection. Also, left infrapatellar nerve block. Patient describes pain in the bilateral knees as constant, dull, aching. Patient is status post left TKA several years ago.. However, has been having pain in the knee since. She rates the bilateral knee pain 7/10. Procedure Details:: Informed consent was obtained risk and benefits of the procedure were explained to the patient. Patient was taken the procedure room right knee was prepped using ChloraPrep. A 25-gauge needle was used to inject 10 mL bupivacaine 0.25% and Depo-Medrol 40 mg into right knee. We did a total of 80 mg Depo-Medrol for both knees. The patient tolerated the procedure well with no complications. Using a 25-gauge inch and half needle the left infrapatellar branch of the saphenous nerve was blocked with 4 cc of 1% lidocaine and 20 mg of Depo-Medrol. Patient tolerated procedure without difficulty. No complications. Plan and Disposition:: Patient was discharged without incident.
[2023-10-19] MEDS: methylPREDNISolone ACETATE 80MG/ML VIAL 80 MG (14:03)
[2023-10-19] MEDS: LIDOCAINE 1% 5ML PF VIAL 5 ML (14:03)
[2023-10-19] MEDS: BUPIVACAINE 0.25% 10ML INJ 25 MG IJ (14:04)
== END 2023-10-19 12:18 | disposition home or self-care (01) ==
LOC: SC.PAINP 11:33
PROVIDERS: PCP Internal Medicine Adolescent Medicine; Visit Provider Nurse Anesthetist, Certified Registered
DX: M17.11 Unilateral primary osteoarthritis, right knee (principal); M25.561 Pain in right knee; G89.29 Other chronic pain; M25.562 Pain in left knee; Z96.652 Presence of left artificial knee joint
CPT/HCPCS: 20610; 64450; 82962; J1010

== ENCOUNTER 2023-12-02 08:58 | Outpatient (POV) | payer MEDICARE, MEDICAID, SELFPAY ==
[2023-12-02 09:15] VITALS: BP 128/68; PULSE 59; RESP 16; O2SAT 100; BMI 35.2
--- NOTE | 2023-12-02 09:34 | EXP.PAIN.SOA ---
[facility] Disclaimer: The information contained in this section may have been updated after the patient was seen, as this information can be updated by other users. Medical History Depression Facial laceration Multiple bruises Fall from bed Contusion of right hip Puncture wound of forehead Traumatic hematoma of forehead Suicidal ideation Pre-operative cardiovascular examination Contusion of left hip Knee contusion Skin tear of forearm without complication Multiple falls Concussion without loss of consciousness Scalp laceration Fracture of rib of right side Contusion of rib on left side Malaise and fatigue Dehydration Elevated left ventricular end-diastolic pressure (LVEDP) Unstable angina pectoris Atypical chest pain Bronchitis Acute kidney injury Sinus bradycardia Renal insufficiency Shingles rash Family History Other Unknown family medical history Social History Smoking Status: Never smoker alcohol intake: never substance use type: denies use current occupational status: other Travel in the last 8 weeks: None household members: other housing: retirement caffeine: No PM Subjective & Objective Subjective Subjective:: Patient is a pleasant 73-year-old female who presents today for follow-up of right intra-articular knee injection and left infrapatellar nerve block on 10/19/2023. Today she rates her pain a 9 out of 10. Patient denies any new trauma or injury. She does state that the injections did provide at least 90% improvement however only lasted about 3 days in her left knee. She states that overall her right knee is still doing pretty good. Patient does state that she is always have worse symptoms along the left side and this is where she had her total left knee replacement in the past. Patient does use Aspercreme and Tylenol with minimal relief. Patient is a resident of [facility]. Patient states the pain is constant and interferes with her sleeping and every type of activity. She is interested in any help we may be able to provide. Her Kristopher has been reviewed and is appropriate. Review of Systems: General: No recent weight changes, no fever, no sleep disturbances Respiratory: No cough, no shortness of air, no recurring pulmonary infections Cardiovascular/peripheral vascular: No chest pain, no palpitations, no edema, no shortness of breath Gastrointestinal: No new onset incontinence, normal bowel movements reported Genitourinary: No new onset incontinence Musculoskeletal: Left knee pain Psychiatric: [Normal mood/affect] Neurological: [Denies weakness in extremities], [denies balance issues] Pain at rest (0-10 scale): 9 Objective Objective:: Physical Exam: General: Alert and oriented x3, no acute distress, pleasant and cooperative Lungs: Respirations even and unlabored, symmetrical chest expansion Eyes: PERRL Musculoskeletal: Flexion and extension of left knee somewhat guarded secondary to pain, [antalgic gait noted] Neurological: Speech clear, no gross sensory deficit Has patient had previous pain injection?: Yes Percent improvement in pain since last injection: 90% Conservative treatment options previously tried: Home exercise plan Length of treatment: Longer than 6 weeks Meds Home Medications and Allergies Home Medications ?Medication ?Instructions ?Recorded ?Confirmed ?Type atorvastatin 20 mg tablet 20 mg PO HS Cholesterol 02/17/18 12/02/23 History sertraline 100 mg tablet 200 mg PO DAILY mood 02/17/18 12/02/23 History calcium carbonate-vitamin D3 600 1 each PO BID Supplement 09/29/19 12/02/23 History mg-125 unit tablet clopidogrel 75 mg tablet 75 mg PO DAILY antiplatelet 09/29/19 12/02/23 History doxepin 10 mg capsule 30 mg PO HS sleep 09/29/19 12/02/23 History insulin glargine 100 unit/mL (3 35 unit SQ HS Diabetes 09/29/19 12/02/23 History mL) subcutaneous pen metformin 500 mg tablet 500 mg PO DAILY Diabetes 09/29/19 12/02/23 History omeprazole 40 mg capsule,delayed 40 mg PO DAILY acid reflux 09/29/19 12/02/23 History release oxybutynin chloride 10 mg 10 mg PO DAILY overactive bladder 09/29/19 12/02/23 History tablet,extended release 24 hr aripiprazole 30 mg tablet 30 mg PO DAILY mood 05/17/20 12/02/23 History aspirin 81 mg chewable tablet 81 mg PO DAILY heart health 05/17/20 12/02/23 History bupropion HCl 150 mg 24 hr tablet, 150 mg PO DAILY Depression 05/17/20 12/02/23 History extended release trazodone 100 mg tablet 100 mg PO HS Insomnia 05/17/20 12/02/23 History acetaminophen 500 mg tablet 500 mg PO Q6H PRN pain 06/03/20 12/02/23 History (Tylenol Extra Strength) amlodipine 5 mg tablet 2.5 mg (1/2 x 5 mg) PO DAILY 06/03/20 12/02/23 Rx Hypertension #15 tabs docusate sodium 100 mg capsule 100 mg PO DAILY constipation 06/03/20 12/02/23 History (Colace) lactulose 20 gram/30 mL oral 20 g PO BID constipation 06/03/20 12/02/23 History solution lisinopril 5 mg tablet 2.5 mg (1/2 x 5 mg) PO DAILY 06/03/20 12/02/23 Rx Hypertension #15 tabs polyethylene glycol 3350 17 17 g PO DAILY constipation 06/03/20 12/02/23 History gram/dose oral powder (Miralax) zinc acetate 25 mg (zinc) capsule 25 mg PO DAILY supplement 06/03/20 12/02/23 History (Galzin) gabapentin 100 mg capsule 100 mg PO BID Pain #60 caps 08/18/22 12/02/23 Rx tramadol 50 mg tablet 50 mg PO BID PRN pain #60 tabs 09/03/22 12/02/23 Rx New Prescriptions to Start Prescriptions: Allergies Allergy/AdvReac Type Severity Reaction Status Date / Time pentazocine [PENTAZOCINE] Allergy Intermediate CRAZY Verified 10/19/23 11:47 prochlorperazine Allergy Intermediate ITCHING Verified 10/19/23 11:47 [PROCHLORPERAZINE] lithium [LITHIUM] Allergy Unknown Verified 10/19/23 11:47 Assessment and Plan *Assessment and plan (1) Bilateral knee pain: Status: Acute Qualifiers: Chronicity: chronic Qualified Code(s): M25.561 - Pain in right knee; M25.562 - Pain in left knee; G89.29 - Other chronic pain Category: Medical Code(s): M25.561 - Pain in right knee; M25.562 - Pain in left knee Plan Patient did have significant relief in her bilateral knees however the left knee only lasted about 3 days. I did discuss with the patient that we will be able to repeat these injections however we will plan on waiting to give a 3-month interval. I have discussed with the patient that I will order a compounded cream and due to her history of falls with certain medications I am recommending to try tramadol 25 mg twice daily to help with some of the knee pain. Patient will return to clinic in 1 month for reevaluation of symptoms and plan of care. Patient has been instructed to contact the clinic with any concerns before the next appointment. Dr. Smith has reviewed this note and agrees with this plan of care. This note was dictated using voice recognition software and make contain errors or omissions. All injections are used with Lidocaine or Bupivacaine and Depo Medrol.
== END 2023-12-02 23:59 | disposition home or self-care (01) ==
LOC: SC.PAIN 09:00
PROVIDERS: PCP Internal Medicine Adolescent Medicine; Visit Provider Nurse Practitioner Family
DX: M25.561 Pain in right knee (principal); M25.562 Pain in left knee; G89.29 Other chronic pain; Z73.89 Other problems related to life management difficulty; Z79.899 Other long term (current) drug therapy
CPT/HCPCS: 99212; G0463

== ENCOUNTER 2023-12-31 13:22 | Outpatient (POV) | payer MEDICARE, MEDICAID, SELFPAY ==
--- OUTSIDE RECORDS SUMMARY | 2023-12-31 13:25 | XMS_ITS | Continuity of Care Document ---
Author Organization [address] [place] [address] Address [address] [facility] [address] [place] [address] Phone Care Team Providers Care Abalone Fisherman Name Role Phone Lina CHEEK, Katelynn Unavailable Unavailabl e Allergies, Adverse Reactions, Alerts Substance Reaction Status Criticality prochlorperazine Active No Informat ion pentazocine Active No Information lithium Active No Information Medications Medication Instructions Dosage Effective Dates (start - stop) Status Comments Acid Gone Antacid 95 mg-358 mg/15 mL oral suspension - Active Farxiga 10 mg tablet - Activ e docusate sodium 100 mg capsule - Active aspirin 81 mg chewable tablet - Active acetaminophen 500 mg tablet - Active calcium carbonate 600 mg-vitamin [...] Lagevrio 200 mg capsule (EUA) - Active lactulose 10 gram/15 mL oral solution - Active Basaglar MikkiikPen U-100 Insulin 100 unit/mL (3 mL) subcutaneous - Active levofloxacin 500 mg tablet - Active levofloxacin 250 mg tablet - Active gabapentin 100 mg capsule - Active trazodone 50 mg tablet - Act josafat sertraline 100 mg tablet - A ctive oxybutynin chloride ER 10 mg tablet,extended release 24 hr - Active omeprazole 40 mg capsule,delayed release - Active metformin 500 mg tablet - Ac tive lisinopril 5 mg tablet - Act josafat doxepin 10 mg capsule - Acti ve clopidogrel 75 mg tablet - A ctive bupropion HCl SR 150 mg tablet,12 hr sustained-release - Active atorvastatin 20 mg tablet - Active aripiprazole 30 mg tablet - Active amlodipine 5 mg tablet - Act josafat trazodone 100 mg tablet - Ac tive hydrocodone 5 mg-acetaminophen 325 mg tablet - Active bupropion HCl XL 150 mg 24 hr tablet, extended release - Active Novofine Autocover 30 gauge x 1/3 needle - Active loperamide 2 mg capsule - Ac tive aripiprazole 20 mg tablet - Active aripiprazole 15 mg tablet - Active aripiprazole 10 mg tablet - Active cephalexin 500 mg capsule - Active sertraline 50 mg tablet - Ac tive Procedures Procedure Date REMOVE IMPACTED EAR WAX DEBRIDE NAIL 6 OR MORE COMPRE OPH EXAM EST PT 1/> REMOVE IMPACTED EAR WAX Compsve Oral Eval- New/Est Pat Complete Series Of Radiographic Images J PARING/CUTG B9 HYPRKER LES 1 DEBRIDE NAIL [...] SKIN LESION Compsve Oral Eval- New/Est Pat DEBRIDE NAIL 6 OR MORE FUNDUS PHOTOGRAPHY [...] Diagnoses Date Provider Providers Copied on Encounter [address] [place] [address], [address] [place], [place] [address] [address], [place], [place], [id number], tel:[phone] [place] ear care exam (chief complaint) Impacted cerumen, bilateral Sep-0 4 iLna Pace. , [place]. Referring Provider: Rainer Asher. [address] [place] [address], [address] [place], [place] [address], [place], [place], [id number], [place] tel:[phone] [place] Tinea unguiumType 2 diabetes w diabetic peripheral angiopath w/o gangrene [address]ings[id number] [place] [address], [address], [place], [address], [place]. [facility], [address] [place], [place] [address], [place], [place], [id number], [place] tel:[phone] [place] Glaucoma, suspect (chief complaint) Open angle with borderline findings, high risk, bilateralAge-re lated nuclear cataract, bilateralType 2 diabetes mellitus without complications 4 Keron Paredes. , [place]. Referring Provider: Marcio Melo. [address] [place] [address], [address] [place], [place] [address], [place], [place], [id number], [place] tel:[phone] [place] Impacted cerumen, bilateral 4 Lina Pace. , [place]. Referring Provider: Marcio Melo. [address] [place] [address], [address] [place] [address], [place], [place], [id number], tel:[phone] [place] Encounter for dental examination and cleaning without abnormal findings 4 Steven Landa. [address] [place] [address], [address], [place], [place], [id number], [place]. tel:[phone] Referring Provider: Marcio Melo. [address] [place] [address], [address] [place] [address], [place], [place], [id number], tel:[phone] [place] Tinea unguiumType 2 diabetes w diabetic peripheral angiopath w/o gangreneCorns and callosities 4 Christian Cummings. [address] [place] [address], [address], [place], [address], [place]. Referring Provider: Rainer Asher. [address] [place] [address], [address] [place] [address], [place], [place], [id number], [place] tel:[phone] [place] No Information 4 Christian Cummings. [address] [place] [address], [address], [place], [address], [place]. [address] [place] [address], [address] [place] [address], [place], [place], [id number], [place] tel:[phone] [place] Corns and callositiesTine a unguiumType 2 diabetes w diabetic peripheral angiopath w/o gangrene 4 Christian Cummings. [address] [place] [address], [address], [place], [address], [place]. Referring Provider: Rainer Asher. NURSING FAC CARE SUBSEQ [address] [place] [address], [address] [place] [address], [place], [place], [id number], tel:[phone] [place] Medical eye problem (chief complaint) Hypertensive retinopathy, bilateral Dec-2 3 Kristie Romano. [address] [place] [address], [place], [address], . tel:[phone] Referring Provider: Marcio Melo. [facility], [address] [place], [place] [address], [place], [place], [address], [place] tel:[phone] [place] Encounter for dental examination and cleaning without abnormal findings Dec-0 [address] [place] [address], [address], [place], [place], [id number], [place]. tel:[phone] Referring Provider: Marcio Melo. SBSQ NF CARE MODERATE MDM 30 [facility], [address] [place], [place] [address], [place], [place], [id number], [place] tel:[phone] [place] Glaucoma, suspect (chief complaint) Open angle with borderline findings, high risk, bilateralAge-re lated nuclear cataract, bilateralType 2 diabetes mellitus without complications Dec- 3 Mack Mendoza. [address] [place] [address], [address], [place], [address], [place]. Referring Provider: Marcio Melo. NURSING FAC CARE SUBSEQ [facility], [address] [place], [place] [address], [place], [place], [id number], [place] tel:[phone] [place] Abrasion, left lesser toe(s), initial encounterTinea unguiumType 2 diabetes w diabetic peripheral angiopath w/o gangrene Nov- 3 Christian Cummings. [address] [place] [address], [address], [place], [address], [place]. [facility], [address] [place], [place] [address] [address], [place], [place], [id number], [place] tel:[phone] [place] Tinea unguiumType 2 diabetes w diabetic peripheral angiopath w/o gangreneCorns and callosities 3 Christian Cummings. [address] [facility], [address], [place], [address], [place]. Referring Provider: Rainer Asher. NURSING FAC CARE SUBSEQ [facility], [address] [place], [place] [address] [address], [place], [place], [id number], [place] tel:[phone] [place] Medical eye problem (chief complaint) Hypertensive retinopathy, bilateral 3 Kristie Romano. [address] [facility], [place], [address], [place]. tel:[phone] Referring Provider: Marcio Melo. [address] [place] [address], [address] [facility], [place], [place], [id number], [place] tel:[phone] [place] Glaucoma, suspect (chief complaint) Open angle with borderline findings, high risk, bilateralType 2 diabetes mellitus without complicationsAg e-related nuclear cataract, bilateral 3 Mack Mendoza. [address] [facility], [address] [facility], [place], [address], [place]. Referring Provider: Marcio Melo. [address] [place] [address], [address] [place], [place] [address], [place], [place], [id number], [place] tel:[phone] [place] No Information 3 [place], [place]. [address] [place] [address], [address] [facility], [place], [place], [id number], [place] tel:[phone] [place] Encounter for dental examination and cleaning without abnormal findings 3 [place], [place]. Referring Provider: Marcio Melo. [address] [place] [address], [address] [place] [address], [place], [place], [address], [place] tel:[phone] [place] Encounter for examination of ears and hearing without abnormal findings 3 [place], [place]. Referring Provider: Marcio Melo. [address] [place] [address], [address] [place], [place] [address], [place], [place], [address], [place] tel:[phone] [place] Corns and callositiesTine a unguiumType 2 diabetes w diabetic peripheral angiopath w/o gangrene 3 Christian Cummings. [address] [facility], [address], [place], [address], [place]. Referring Provider: Rainer Asher. [address] [place] [address], [address] [place], [place] [address], [place], [place], [id number], [place] tel:[phone] [place] Presbyopia Feb-2 3 [facility]. [place]. NURSING FAC CARE SUBSEQ [address] [place] [address], [address] [facility] [address], [place], [place], [id number], [place] tel:[phone] [place] hearing loss (chief complaint) Unspecified hearing loss, bilateral Feb-0 2- 3 Alexy-Hard sera Genia. [address], [address], [place], [address], [place]. Referring Provider: Marcio Melo. [address] [place] [address], [address] [place] [address], [place], [place], [id number], [place] tel:[phone] [place] Diabetic eye exam (chief complaint) Glaucoma, suspect (chief complaint) Open angle with borderline findings, high risk, bilateralVitreo us degeneration, left eyeHypertensive retinopathy, bilateral Feb- 2 [facility] , [place]. Referring Provider: Marcio Melo. [address] [place] [address], [address] [place], [place] [address], [place], [place], [id number], [place] tel:[phone] [place] Tinea unguiumType 2 diabetes w diabetic peripheral angiopath w/o gangrene Feb-0 2 Christian Cummings. [address] [facility], [address], [place], [address], [place]. Referring Provider: Rainer Mcdowell. NURSING FAC CARE SUBSEQ [address] [place] [address], [address] [place], [place] [address], [place], [place], [id number], [place] tel:[phone] [place] Tinea unguiumType 2 diabetes w diabetic peripheral angiopath w/o gangreneHallux valgus (acquired), right foot Sep-2 [address] Christian Cummings. [address], [address], [place], [address], [place]. Referring Provider: Marcio Melo. [address] [place] [address], [address] [place], [place] [address], [place], [place], [id number], [place] tel:[phone] [place] Diabetic eye exam (chief complaint) Type 2 diabetes mellitus with mild nonproliferativ e diabetic retinopathy without macular edema, bilateral Cristian-0 2 Kristie Romano. [address] [facility], [place], [address], [place]. tel:[phone] Referring Provider: Marcio Melo. [address] [place] [address], [address] [place], [place] [address], [place], [place], [id number], [place] tel:[phone] [place] Glaucoma, suspect (chief complaint) Type 2 diabetes mellitus without complicationsOp en angle with borderline findings, high risk, bilateralDry eye syndrome of bilateral lacrimal glands 2 Mack Mendoza. [address] [facility], [address], [place], [address], [place]. Referring Provider: Marcio Melo. [address] [place] [address], [address] [place], [place] [address], [place], [place], [id number], [place] tel:[phone] [place] Type 2 diabetes w diabetic peripheral angiopath w/o gangreneTinea unguiumCorns and callosities 2 [place], [place]. Referring Provider: Malka Troung. [address] [place] [address], [address] [place], [place] [address], [place], [place], [id number], [place] tel:[phone] [place] Encounter for dental exam and cleaning w/o abnormal findings 2 Angel Payne. [address] [facility], [address], [place], [place], [address], [place]. tel:[phone] Referring Provider: Marcio Melo. [address] [place] [address], [address] [place], [place] [address], [place], [place], [id number], [place] tel:[phone] [place] Type 2 diabetes mellitus without complicationsTi dimas unguium 2 [place], [place]. Referring Provider: Marcio Melo. [address] [place] [address], [address] [place], [place] [address], [place], [place], [id number], [place] tel:[phone] [place] Glaucoma, suspect (chief complaint) Open angle with borderline findings, high risk, bilateralType 2 diabetes mellitus without complications Robi-0 2 Mack Vazquezina. [address] [facility], [address], [place], [address], [place]. Referring Provider: Marcio Melo. [address] [place] [address], [address] [place] [address], [place], [place], [id number], [place] tel:[phone] [place] No Information Dec-0 1 [facility] , [place]. [address] [place] [address], [address] [place], [place] [address], [place], [place], [id number], [place] tel:[phone] [place] Glaucoma (chief complaint) Glaucoma, suspect (chief complaint) Open angle with borderline findings, high risk, bilateral Oct-1 - 1 Kristie Romano. [address] [facility], [place], [address], [place]. tel:[phone] Referring Provider: Marcio Melo. NURSING FAC CARE SUBSEQ [address] [place] [address], [address] [place] [address], [place], [place], [id number], [place] tel:[phone] [place] ear care exam (chief complaint) Unspecified hearing loss, bilateral Oct-0 - 1 [place]-Hard sera Genia. [address] [facility], [address], [place], [address], [place]. Referring Provider: Marcio Melo. [address] [place] [address], [address] [place] [address], [place], [place], [id number], [place] tel:[phone] [place] Tinea unguiumType 2 diabetes mellitus without complications Sep-2 1 [facility] , [place]. Referring Provider: Marcio Melo. NURSING FAC CARE SUBSEQ [address] [place] [address], [address] [place] [address], [place], [place], [id number], [place] tel:[phone] [place] Tinea unguiumAbrasion , right lesser toe(s), initial encounterFlat foot [pes planus] (acquired), unspecified footType 2 diabetes mellitus without complications Cristian-2 6-202 1 [place]. , [place]. Referring Provider: Marcio Melo. [address] [place] [address], [address] [facility] [address], [place], [place], [id number], tel:[phone] [place] Unspecified hearing loss, bilateral Herbert- 1 Leia Bansk. [address] [facility], [address], [place], [place], [address], [place]. tel:[phone] Referring Provider: Marcio Melo. [address] [place] [address], [address], [place], [place], [address], tel:[phone] [place] Medical eye problem (chief complaint) Diabetic eye exam (chief complaint) Type 2 diabetes mellitus without complicationsOp en angle with borderline findings, high risk, bilateral July- 1 Kristie Romano. [address] [facility], [place], [address], [place]. tel:[phone] Referring Provider: Marcio Melo. NURSING FAC CARE SUBSEQ [address] [place] [address], [address], [place], [place], [id number], tel:[phone] [place] hearing loss (chief complaint) Unspecified hearing loss, bilateral Jun- 1 Alexy-Hard sera Santiagoa. [address] [facility], [address], [place], [address], [place]. Referring Provider: Marcio Melo. Family History Family Member Type Diagnosis Age At Onset No Information Payers Payer name Insurance type Covered green party ID Authoriza tion(s) Medicare [facility] [id number] Medicaid [facility] [id number] Social History Type Description Quantity Date Captured Comments Alcohol Use Details Unknown Caffeine Use Details Unknown Tobacco Use Status No Information Smoking Status No Information Sex Female Chief Complaint And Reason For Visit From encounter dated '11/11/2023 10:10'. ear care exam (chief complaint) Reason For Referral Reason For Referral No Information Plan Of Treatment Date Type Action Status Appointment Faby Palm BOOKED Appointment Faby Palm BOOKED Patient Education Learning [...] Date Complaint History Of Prese nt Illness Glaucoma, suspect The 73 year ol d patient presents for evaluation of Glaucoma, suspect in the right eye and left eye. It occurs always. The onset was gradual. The symptom is constant. Medical eye problem The 72 year old [...] to pursue. Related to Impacted cerumen, bilateral Toenails 1-5 b/l wer e debrided in length and thickness without incident. Follow up in 2-3 months. Related to Tinea unguium Return in 6-9 months for IOP deidre ck. Related to Open angle with borderline findings, high risk, bilateral Impression/Plan - No active diabetic retinopathy present in either eye. We will monitor at regular intervals. Related to Type 2 diabetes mellitus without complications Impression/Plan - Ca taracts are moderate and are affecting visual acuity; however, no treatment recommended at this time. We will monitor for progression. Related to Age-related nuclear cataract, bilateral Impression/Plan - IO P read high today; recheck at next visit. Related to Open angle with borderline findings, high risk, bilateral Follow up - Return i n 6-9 months for IOP check. Related to Open angle with borderline findings, high risk, bilateral Performed cerumen re moval as per protocol. [...] proved ERG/Monitor Related to Hypertensive retinopathy, bilateral We will schedule a f ollow up appointment in 6-9 months for a dilated fundus exam. Related to Open angle with borderline findings, high risk, bilateral Impression/Plan - No active diabetic retinopathy present in either eye. We will monitor at regular intervals. Related to Type 2 diabetes mellitus without complications Impression/Plan - Ca taracts are mild; we will monitor for progression. Related to Age-related nuclear cataract, bilateral Impression/Plan - David rderline Glaucoma findings; No treatment indicated at this time; Further testing needed to assess risk of developing glaucoma. 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 Related to Open angle with borderline findings, high risk, bilateral Discussed with the p bryan. No dressing needed at this time. Monitor [...] borderline findings, high risk, bilateral Impression/Plan - Mi ld retinal vascular changes consistent with hypertension. Minimal occlusive risk. Related to Hypertensive retinopathy, bilateral Impression/Plan - Vi treous floaters are present; however, no holes, breaks, or tears are evident. Related to Vitreous degeneration, left eye Impression/Plan - David rderline Glaucoma findings; No treatment indicated at this time; Further testing needed to assess risk of developing glaucoma. Pachymetry today reveals normal thickness OD, thin cornea OS Related to Open angle with borderline findings, high risk, bilateral Toenails 1-5 b/l wer e debrided [...] Dry eye syndrome of bilateral lacrimal glands All of the calluses were debrided/pared to prevent further tissue breakdown and pain. Related to Corns and callosities Nails 1-5 debrided b /l without incident. Follow up in 2-3 months Related to Tinea unguium Nails 1-5 debrided b /l without incident. [...] to Type 2 diabetes mellitus without complications Follow up - We will schedule a [...] risk, bilateral follow up in 12-[address] [facility] or sooner if needed. Related to Unspecified hearing loss, bilateral Nails 1-5 debrided b /l without incident. Follow up in 2-3 months Related to Tinea unguium Nails 1-5 debrided b /l without incident Related to Tinea unguium Impression/Plan - David rderline Glaucoma findings; No treatment indicated at this time; Further testing needed to assess risk of developing glaucoma. Related to Open angle with borderline findings, high risk, bilateral Impression/Plan - No active diabetic retinopathy present in either eye. We will monitor at regular intervals. Related to Type 2 diabetes mellitus without complications Recommend referral t o audiology per patient's request. Follow up in 6-9 months or sooner if needed. Related to Unspecified hearing loss, bilateral Assessments Type Assessment Date assessment Impacted cerumen, bilateral Patient Care Teams Name Effective Dates (start - stop) Status Members No Information
[2023-12-31 13:40] VITALS: BP 133/59; PULSE 63; RESP 16; O2SAT 95; BMI 35.2
--- NOTE | 2023-12-31 13:52 | EXP.PAIN.SOA ---
[facility] Disclaimer: The information contained in this section may have been updated after the patient was seen, as this information can be updated by other users. Medical History Depression Facial laceration Multiple bruises Fall from bed Contusion of right hip Puncture wound of forehead Traumatic hematoma of forehead Suicidal ideation Pre-operative cardiovascular examination Contusion of left hip Knee contusion Skin tear of forearm without complication Multiple falls Concussion without loss of consciousness Scalp laceration Fracture of rib of right side Contusion of rib on left side Malaise and fatigue Dehydration Elevated left ventricular end-diastolic pressure (LVEDP) Unstable angina pectoris Atypical chest pain Bronchitis Acute kidney injury Sinus bradycardia Renal insufficiency Shingles rash Family History Other Unknown family medical history Social History Smoking Status: Never smoker alcohol intake: never substance use type: denies use current occupational status: other Travel in the last 8 weeks: None household members: other housing: half-way caffeine: No PM Subjective & Objective Subjective Subjective:: Patient is a pleasant 73-year-old female who presents today for worsening pain. Today she rates her pain a 9 out of 10. She denies any new trauma or injury. She does state that she is continue to have chronic pain throughout her knees and does state the pain interferes with her ability to perform activities of daily living such as cooking and cleaning. Patient would like to try injections again. Patient did previously have a right intra-articular knee injection and a left infrapatellar nerve block back in October that did provide approximately 90% relief however the left knee only lasted for about 3 days patient has had a left knee replacement and cannot have the intra-articular injections due to this. Patient does state with those last injection she was at least able to move around easier with overall improvement in function. Patient at her last visit had also discussed regarding starting tramadol 25 mg twice a day however her primary care did still feel like this would put her at increased risk of falls because she has a longstanding history. Her Kristopher has been reviewed and is appropriate. Review of Systems: General: No recent weight changes, no fever, no sleep disturbances Respiratory: No cough, no shortness of air, no recurring pulmonary infections Cardiovascular/peripheral vascular: No chest pain, no palpitations, no edema, no shortness of breath Gastrointestinal: No new onset incontinence, normal bowel movements reported Genitourinary: No new onset incontinence Musculoskeletal: Bilateral knee pain Psychiatric: [Normal mood/affect] Neurological: [Denies weakness in extremities], [denies balance issues] Pain at rest (0-10 scale): 9 Objective Objective:: Physical Exam: General: Alert and oriented x3, no acute distress, pleasant and cooperative Lungs: Respirations even and unlabored, symmetrical chest expansion Eyes: PERRL Musculoskeletal: Flexion and extension of bilateral knees somewhat guarded secondary to pain, [antalgic gait noted] Neurological: Speech clear, no gross sensory deficit Has patient had previous pain injection?: No Conservative treatment options previously tried: Home exercise plan Length of treatment: Longer than 12 weeks Meds Home Medications and Allergies Home Medications ?Medication ?Instructions ?Recorded ?Confirmed ?Type atorvastatin 20 mg tablet 20 mg PO HS Cholesterol 02/17/18 12/31/23 History sertraline 100 mg tablet 200 mg PO DAILY mood 02/17/18 12/31/23 History calcium carbonate-vitamin D3 600 1 each PO BID Supplement 09/29/19 12/31/23 History mg-125 unit tablet clopidogrel 75 mg tablet 75 mg PO DAILY antiplatelet 09/29/19 12/31/23 History doxepin 10 mg capsule 30 mg PO HS sleep 09/29/19 12/31/23 History insulin glargine 100 unit/mL (3 35 unit SQ HS Diabetes 09/29/19 12/31/23 History mL) subcutaneous pen metformin 500 mg tablet 500 mg PO DAILY Diabetes 09/29/19 12/31/23 History omeprazole 40 mg capsule,delayed 40 mg PO DAILY acid reflux 09/29/19 12/31/23 History release oxybutynin chloride 10 mg 10 mg PO DAILY overactive bladder 09/29/19 12/31/23 History tablet,extended release 24 hr aripiprazole 30 mg tablet 30 mg PO DAILY mood 05/17/20 12/31/23 History aspirin 81 mg chewable tablet 81 mg PO DAILY heart health 05/17/20 12/31/23 History bupropion HCl 150 mg 24 hr tablet, 150 mg PO DAILY Depression 05/17/20 12/31/23 History extended release trazodone 100 mg tablet 100 mg PO HS Insomnia 05/17/20 12/31/23 History acetaminophen 500 mg tablet 500 mg PO Q6H PRN pain 06/03/20 12/31/23 History (Tylenol Extra Strength) amlodipine 5 mg tablet 2.5 mg (1/2 x 5 mg) PO DAILY 06/03/20 12/31/23 Rx Hypertension #15 tabs docusate sodium 100 mg capsule 100 mg PO DAILY constipation 06/03/20 12/31/23 History (Colace) lactulose 20 gram/30 mL oral 20 g PO BID constipation 06/03/20 12/31/23 History solution lisinopril 5 mg tablet 2.5 mg (1/2 x 5 mg) PO DAILY 06/03/20 12/31/23 Rx Hypertension #15 tabs polyethylene glycol 3350 17 17 g PO DAILY constipation 06/03/20 12/31/23 History gram/dose oral powder (Miralax) zinc acetate 25 mg (zinc) capsule 25 mg PO DAILY supplement 06/03/20 12/31/23 History (Galzin) gabapentin 100 mg capsule 100 mg PO BID Pain #60 caps 08/18/22 12/31/23 Rx tramadol 50 mg tablet 50 mg PO BID PRN pain #60 tabs 09/03/22 12/31/23 Rx diclofenac sodium 1 % topical gel 2 g topical QID #100 grams 12/09/23 12/31/23 Rx (Voltaren Arthritis Pain) New Prescriptions to Start Prescriptions: Allergies Allergy/AdvReac Type Severity Reaction Status Date / Time pentazocine [PENTAZOCINE] Allergy Intermediate CRAZY Verified 10/19/23 11:47 prochlorperazine Allergy Intermediate ITCHING Verified 10/19/23 11:47 [PROCHLORPERAZINE] lithium [LITHIUM] Allergy Unknown Verified 10/19/23 11:47 Assessment and Plan *Assessment and plan (1) Bilateral knee pain: Status: Acute Qualifiers: Chronicity: chronic Qualified Code(s): M25.561 - Pain in right knee; M25.562 - Pain in left knee; G89.29 - Other chronic pain Category: Medical Code(s): M25.561 - Pain in right knee; M25.562 - Pain in left knee Plan Patient is experiencing more pain in her bilateral knees with limited range of motion. Patient did previously have a right intra-articular knee injection and a left infrapatellar nerve block that did provide 90% relief in October. Patient's left knee is the worst knee and did only give temporary relief however both of these injections did significantly improve the patient's overall function and quality of life. I did discuss with the patient reviewing over the risk and benefits of repeat injection and she would like to proceed forward with this plan of care. Patient has tried and failed conservative therapy including continued at home stretching exercise for longer than 12 weeks. Patient will be scheduled for a right intra-articular knee injection and a left infrapatellar nerve block. Patient has been instructed to contact the clinic with any concerns before the next appointment. Dr. Smith has reviewed this note and agrees with this plan of care. This note was dictated using voice recognition software and make contain errors or omissions. All injections are used with Lidocaine or Bupivacaine and Depo Medrol.
== END 2023-12-31 23:59 | disposition home or self-care (01) ==
LOC: SC.PAIN 13:24
PROVIDERS: PCP Internal Medicine Adolescent Medicine; Visit Provider Nurse Practitioner Family
DX: M25.561 Pain in right knee (principal); M25.562 Pain in left knee; G89.29 Other chronic pain; Z73.89 Other problems related to life management difficulty; Z79.899 Other long term (current) drug therapy
CPT/HCPCS: 99212; G0463

== ENCOUNTER 2024-01-18 13:53 | Day surgery (SDC) | payer MEDICARE, MEDICAID, SELFPAY ==
--- OUTSIDE RECORDS SUMMARY | 2024-01-18 13:56 | XMS_ITS | Continuity of Care Document ---
Author Organization [address] [place] [address] Address [address] [facility] [place] [address] Phone Care Team Providers Care Electromechanical Assembler Name Role Phone Lina CHEEK, Katelynn Unavailable [...] 200 mg capsule (EUA) - Active Basaglar TevinPen U-100 Insulin 100 unit/mL (3 mL) subcutaneous [...] Diagnoses Date Provider Providers Copied on Encounter [address] [place] [address], [address] [place], [place] [address], [place], [place], [id number], tel:[phone] [place] ear care exam (chief complaint) Impacted cerumen, bilateral Sep-0 4 Lina Pace. , [place]. Referring Provider: Rainer Asher. [address] [place] [address], [address] [place], [place] [address], [place], [place], [id number], [place] tel:[phone] [place] Tinea unguiumType 2 diabetes w diabetic peripheral angiopath w/o gangrene 4 Christian Cummings. [address] [place] [address], [address], [place], [address], [place]. [facility], [address] [place], [place] [address], [place], [place], [id number], [place] tel:[phone] [place] Glaucoma, suspect (chief complaint) Open angle with borderline findings, high risk, bilateralAge-re lated nuclear cataract, bilateralType 2 diabetes mellitus without complications 4 Keron Paredes. , [place]. Referring Provider: Marcio Melo. [address] [place] [address], [address] [place], [place] [address], [place], [place], [id number], [place] tel:[phone] [place] Impacted cerumen, bilateral 4 Lina Pace. , [place] Referring Provider: Marcio Melo. [address] [place] [address], [address] [place] [address], [place], [place], [id number], tel:[phone] [place] Encounter for dental examination and cleaning without abnormal findings 4 Steven Landa. [address] [place] [address], [address], [place], [place], [id number], [place]. tel:[phone] Referring Provider: Marcio Melo. [address] [place] [address], [address] [place] [address], [place], [place], [id number], tel:[phone] [place] Tinea unguiumType 2 diabetes w diabetic peripheral angiopath w/o gangreneCorns and callosities 4 Christian Cummings. [address] [place] [address], [address], [place], [address], [place]. Referring Provider: Rainer Asher. [address] [place] [address], [address] [place] [address], [place], [place], [id number], [place] tel:[phone] [place] No Information 4 Christian Cummings. [address] [place] [address], [address], [place], [address], [place]. [address] [place] [address], [address] [place] [address], [place], [place], [id number], [place] tel:[phone] [place] Corns and callositiesTine a unguiumType 2 diabetes w diabetic peripheral angiopath w/o gangrene 4 Christian Cummings. [address] [place] [address], [address], [place], [address], [place]. Referring Provider: Rainer Asher. NURSING FAC CARE SUBSEQ [address] [place] [address], [address] [place] [address], [place], [place], [id number], tel:[phone] [place] Medical eye problem (chief complaint) Hypertensive retinopathy, bilateral Dec-2 3 Kristie Romano. [address] [place] [address], [place], [address], . tel:[phone] Referring Provider: Marcio Melo. [facility], [address] [place], [place] [address], [place], [place], [id number], [place] tel:[phone] [place] Encounter for dental examination and cleaning without abnormal findings Dec-0 3 Angel Payne. [address] [place] [address], [address], [place], [place], [id number], [place]. tel:[phone] Referring Provider: Marcio Melo. SBSQ NF CARE MODERATE MDM 30 [facility], [address] [place], [place] [address], [place], [place], [id number], [place] tel:[phone] [place] Glaucoma, suspect (chief complaint) Open angle with borderline findings, high risk, bilateralAge-re lated nuclear cataract, bilateralType 2 diabetes mellitus without complications Dec- 3 Mack Mendoza. [address] [place] [address], [address], [place], [address], [place]. Referring Provider: Marcio Melo. NURSING FAC CARE SUBSEQ [facility], [address] [place], [place] [address], [place], [place], [id number], [place] tel:[phone] [place] Abrasion, left lesser toe(s), initial encounterTinea unguiumType 2 diabetes w diabetic peripheral angiopath w/o gangrene Nov- 3 Christian Cummings. [address] [place] [address], [address], [place], [address], [place]. [facility], [address] [place], [place] [address], [place], [place], [id number], [place] tel:[phone] [place] Tinea unguiumType 2 diabetes w diabetic peripheral angiopath w/o gangreneCorns and callosities 3 Christian Cummings. [address] [facility], [address], [place], [address], [place]. Referring Provider: Rainer Asher. NURSING FAC CARE SUBSEQ [facility], [address] [place], [place] [address], [place], [place], [address], [place] tel:[phone] [place] Medical eye problem (chief complaint) Hypertensive retinopathy, bilateral 3 Kristie Romano. [address] [facility], [place], [address], [place]. tel:[phone] Referring Provider: Marcio Melo. [address] [place] [address], [address] [facility], [place], [place], [id number], [place] tel:[phone] [place] Glaucoma, suspect (chief complaint) Open angle with borderline findings, high risk, bilateralType 2 diabetes mellitus without complicationsAg e-related nuclear cataract, bilateral 3 Mack Mendoza. [address] [facility], [facility], [place], [address], [place]. Referring Provider: Marcio Melo. [address] [place] [address], [address] [place], [place] [address], [place], [place], [address], [place] tel:[phone] [place] No Information 3 [place], [place]. [address] [place] [address], [address] [facility] [address], [place], [place], [address], [place] tel:[phone] [place] Encounter for dental examination and cleaning without abnormal findings 3 [place], [place]. Referring Provider: Marcio Melo. [address] [place] [address], [address] [place] [address], [place], [place], [address], [place] tel:[phone] [place] Encounter for examination of ears and hearing without abnormal findings 3 [place], [place]. Referring Provider: Marcio Melo. [address] [place] [address], [address] [place], [place] [address], [place], [place], [id number], [place] tel:[phone] [place] Corns and callositiesTine a unguiumType 2 diabetes w diabetic peripheral angiopath w/o gangrene 3 Christian Cummings. [address] [facility], [address], [place], [address], [place]. Referring Provider: Rainer Asher. [address] [place] [address], [address] [place], [place] [address], [place], [place], [id number], [place] tel:[phone] [place] Presbyopia Feb-2 3 [facility]. [place]. NURSING FAC CARE SUBSEQ [address] [place] [address], [address] [facility] [address], [place], [place], [id number], [place] tel:[phone] [place] hearing loss (chief complaint) Unspecified hearing loss, bilateral Feb-0 2- 3 Alexy-Hard sera Genia. [address], [address], [place], [address], [place]. Referring Provider: Marcio Melo. [address] [place] [address], [address] [place] [address], [place], [place], [id number], [place] tel:[phone] [place] Diabetic eye exam (chief complaint) Glaucoma, suspect (chief complaint) Open angle with borderline findings, high risk, bilateralVitreo us degeneration, left eyeHypertensive retinopathy, bilateral Feb- 2 [facility] , [place]. Referring Provider: Marcio Melo. [address] [place] [address], [address] [place], [place] [address], [place], [place], [address], [place] tel:[phone] [place] Tinea unguiumType 2 diabetes w diabetic peripheral angiopath w/o gangrene Feb-0 2 Christian Cummings. [address] [facility], [address], [place], [address], [place]. Referring Provider: Rainer Mcdowell. NURSING FAC CARE SUBSEQ [address] [place] [address], [address] [place], [place] [address], [place], [place], [id number], [place] tel:[phone] [place] Tinea unguiumType 2 diabetes w diabetic peripheral angiopath w/o gangreneHallux valgus (acquired), right foot Sep-2 2 Christian Cummings. [address], [address], [place], [address], [place]. Referring Provider: Marcio Melo. [address] [place] [address], [address] [place], [place] [address], [place], [place], [address], [place] tel:[phone] [place] Diabetic eye exam (chief complaint) Type 2 diabetes mellitus with mild nonproliferativ e diabetic retinopathy without macular edema, bilateral Cristian-0 2 Kristie Romano. [address] [facility], [place], [address], [place]. tel:[phone] Referring Provider: Marcio Melo. [address] [place] [address], [address] [place], [place] [address], [place], [place], [address], [place] tel:[phone] [place] Glaucoma, suspect (chief complaint) Type 2 diabetes mellitus without complicationsOp en angle with borderline findings, high risk, bilateralDry eye syndrome of bilateral lacrimal glands 2 Mack Mendoza. [address] [facility], [address], [place], [address], [place]. Referring Provider: Marcio Melo. [address] [place] [address], [address] [place], [place] [address], [place], [place], [address], [place] tel:[phone] [place] Type 2 diabetes w diabetic peripheral angiopath w/o gangreneTinea unguiumCorns and callosities 2 [place], [place]. Referring Provider: Malka Truong. [address] [place] [address], [address] [place], [place] [address], [place], [place], [address], [place] tel:[phone] [place] Encounter for dental exam and cleaning w/o abnormal findings 2 Angel Payne. [address] [facility] [address], [address], [place], [place], [id number], [place]. tel:[phone] Referring Provider: Marcio Melo. [address] [place] [address], [address] [place], [place] [address], [place], [place], [address], [place] tel:[phone] [place] Type 2 diabetes mellitus without complicationsTi dimas unguium 2 [place], [place]. Referring Provider: Marcio Melo. [address] [place] [address], [address] [place], [place] [address], [place], [place], [address], [place] tel:[phone] [place] Glaucoma, suspect (chief complaint) Open angle with borderline findings, high risk, bilateralType 2 diabetes mellitus without complications Robi-0 2 Mack Vazquezina. [address] [facility], [address], [place], [address], [place]. Referring Provider: Marcio Melo. [address] [place] [address], [address] [place] [address], [place], [place], [address], [place] tel:[phone] [place] No Information Dec-0 1 [facility] , [place]. [address] [place] [address], [address] [place], [place] [address], [place], [place], [address], [place] tel:[phone] [place] Glaucoma (chief complaint) Glaucoma, suspect (chief complaint) Open angle with borderline findings, high risk, bilateral Oct-1 - 1 Kristie Romano. [address] [facility], [place], [address], [place]. tel:[phone] Referring Provider: Marcio Melo. NURSING FAC CARE SUBSEQ [address] [place] [address], [address] [place] [address], [place], [place], [address], [place] tel:[phone] [place] ear care exam (chief complaint) Unspecified hearing loss, bilateral Oct-0 - 1 [place]-Hard sera Genia. [address] [facility], [address], [place], [address], [place]. Referring Provider: Marcio Melo. [address] [place] [address], [address] [place] [address], [place], [place], [id number], [place] tel:[phone] [place] Tinea unguiumType 2 diabetes mellitus without complications Sep-2 1 [facility] , [place]. Referring Provider: Marcio Melo. NURSING FAC CARE SUBSEQ [address] [place] [address], [address] [place] [address], [place], [place], [id number], [place] tel:[phone] [place] Tinea unguiumAbrasion , right lesser toe(s), initial encounterFlat foot [pes planus] (acquired), unspecified footType 2 diabetes mellitus without complications Cristian-2 6-202 1 [place]. , [place]. Referring Provider: Marcio Melo. [address] [place] [address], [address] [facility] [address], [place], [place], [address], tel:[phone] [place] Unspecified hearing loss, bilateral Herbert- 1 Leia Banks. [address] [facility], [address], [place], [place], [address], [place]. tel:[phone] Referring Provider: Marcio Melo. [address] [place] [address], [address], [place], [place], [address], tel:[phone] [place] Medical eye problem (chief complaint) Diabetic eye exam (chief complaint) Type 2 diabetes mellitus without complicationsOp en angle with borderline findings, high risk, bilateral July- 1 Kristie Romano. [address] [facility], [place], [address], [place]. tel:[phone] Referring Provider: Marcio Melo. NURSING FAC CARE SUBSEQ [address] [place] [address], [address], [place], [place], [address], tel:[phone] [place] hearing loss (chief complaint) Unspecified hearing loss, bilateral Jun- 1 Alexy-Hard sera Santiagoa. [address] [facility], [address], [place], [address], [place]. Referring Provider: Marcio Melo. Family History Family Member Type Diagnosis Age At Onset No Information Payers Payer name Insurance type Covered republican ID Authoriza tion(s) Medicare [facility] [id number] Medicaid [facility] [id number] Social History Type Description Quantity Date Captured [...] Dry eye syndrome of bilateral lacrimal glands Follow up - We will schedule a follow up appointment in 6-9 months for a dilated fundus exam. Related to Dry eye syndrome of bilateral lacrimal glands Impression/Plan - David rderline Glaucoma findings; No treatment indicated at this time; Further testing needed to assess risk of developing glaucoma. Good iop today, stable onhs size Related to Open angle with borderline findings, high risk, bilateral Impression/Plan - No active diabetic retinopathy present in either eye. We will monitor at regular intervals. Related to Type 2 diabetes mellitus without complications All of the calluses were debrided/pared to [...] follow up in 12-[address] [facility] or sooner if needed. Related to [...]
[2024-01-18 14:12] VITALS: BP 138/69; PULSE 66; RESP 16; TEMP 36.4; O2SAT 97; BMI 34.9
[2024-01-18] MEDS: BUPIVACAINE 0.25% 10ML INJ 25 MG IJ (14:21)
[2024-01-18 14:22] VITALS: BP 155/64; PULSE 54; RESP 18; O2SAT 97
[2024-01-18] MEDS: LIDOCAINE 1% 5ML PF VIAL 5 ML (14:22)
[2024-01-18] MEDS: methylPREDNISolone ACETATE 80MG/ML VIAL 80 MG (14:22)
[2024-01-18 14:23] VITALS: BP 165/88; PULSE 80; RESP 16; O2SAT 96
[2024-01-18 14:24] VITALS: BP 155/64; PULSE 54; RESP 18; O2SAT 97
[2024-01-18 14:24] LABS: POC Glucose,Bedside 179 (70-110)
--- NOTE | 2024-01-18 14:33 | P.PCN_ITS ---
Procedure Date: 01/18/24 Time: 14:20 Anesthesiologist:: Thong Pelaez CRNA Complications:: None Pre-procedure Diagnosis:: DJD bilateral knees. Chronic bilateral knee pain. Post-procedure Diagnosis:: Same. Indications for Procedure:: Patient is a pleasant 73-year-old female who comes our clinic today for a right intra-articular knee injection. Also, left infrapatellar nerve block. Patient has chronic bilateral knee pain. She rates her knee pain 8/10. She presents today in a wheelchair. However, patient reports while at home she is ambulatory to some degree. Procedure Details:: Details of the procedure explained to the patient. The patient taken procedure room placed in the sitting position. The over the right knee was cleaned using chlorhexidine as a cleansing solution. Using a 22-gauge inch and half needle the right knee joint was accessed from the anterior lateral position. After negative aspiration 4 cc of 1% lidocaine +4 cc of 0.25% Marcaine and 40 mg of Depo-Medrol was injected. Patient tolerated procedure without difficulty. There are no complications. Details of the procedure explained to the patient. The patient taken procedure room placed in sitting position. The area of the left knee was cleaned using chlorhexidine as a cleansing solution. Using a 25-gauge inch and half needle the left infrapatellar nerve was accessed with ease. After negative aspiration 7 mL of a solution containing 0.25% Marcaine +1% lidocaine and 40 mg of Depo- Medrol was injected. Patient tolerated procedure without difficulty. There are no complications. Plan and Disposition:: Patient was discharged without incident.
== END 2024-01-18 14:23 | disposition home or self-care (01) ==
LOC: SC.PAINP 13:54
PROVIDERS: PCP Internal Medicine Adolescent Medicine; Visit Provider Nurse Anesthetist, Certified Registered
DX: M17.0 Bilateral primary osteoarthritis of knee (principal); M25.561 Pain in right knee; M25.562 Pain in left knee; G89.29 Other chronic pain
CPT/HCPCS: 20610; 64450; 82962; J1010

== ENCOUNTER 2024-02-16 14:45 | Outpatient (POV) | payer MEDICARE, MEDICAID, SELFPAY ==
--- OUTSIDE RECORDS SUMMARY | 2024-02-16 14:49 | XMS_ITS | Encounter Summary ---
Author Organization [place] [address] Care Team Providers Care Fish Seiner Name Role Phone Sharee Segovia APRN Primary Care Provider [phone] Isaura Pickens LCSW Unavailable Unavail able Reason for Visit * Reason Onset Date Comments SW- Telephonic Outreach 09/12/2018 Encounter Details Date Type Department Care Team (Late st Contact Info) Description 09/12/2018 Patient Outreach [facility] [address] [place] [address] Isaura Pickens LCSW SW- Telephonic Outreach Social History Tobacco Use Types Packs/Day Years Used Date Smoking Tobacco: Never Smokeless Tobacco: Never Alcohol Use Standard Drinks/Week Comments No 0 (1 standard drink = 0.6 oz pur e alcohol) wednesday PHQ-2 Answer Date Recorded PHQ-2 Score 2 07/26/2018 Sexually Active Control Partners Comments Never Comments No Sex and Gender Information Value Date Recorded Sex Assigned at Not on file Legal Sex Female 11:12 AM EDT Gender Identity Not on file Sexual Orientation Not on file Occupation Industry Job Start Date Job End Date retired Not on file Not on file Not on file documented as of this encounter Functional Status * Is the person deaf or does he/she have serious difficulty hearing? Answer Date of Assessment Author No 08/14/2018 1:48 PM EDT Susan Kaye RN * Is the person blind or does he/she have serious difficulty seeing even when wearing glasses? Answer Date of Assessment Author No 08/14/2018 1:48 PM EDT Susan Kaye RN * Does this person have serious difficulty walking or climbing stairs? Answer Date of Assessment Author No 08/14/2018 1:48 PM EDT Ssuan Kaye RN * Does this person have difficulty dressing or bathing? Answer Date of Assessment Author Yes 08/14/2018 1:48 PM EDT Susan Kaye RN * Because of a physical, mental or emotional condition, does this person have difficulty doing errands alone such as visiting a doctor's office or shopping? Answer Date of Assessment Author Yes 08/14/2018 1:48 PM EDT Susan Kaye RN documented as of this encounter Mental Status * Because of a physical, mental or emotional condition, does this person have serious difficulty concentrating, remembering or making decisions? Answer Entry Date Author No 08/14/2018 1:48 PM EDT Susan Kaye RN documented in this encounter Progress Notes * Isaura Pickens CSW - 09/12/2018 3:50 PM EDT TIMING ADJUSTER called and left message for pt this date to offer SW assistance with housing options. Provided phone number and requested return call. documented in this encounter Plan of Treatment Not on file documented as of this encounter Goals Goal Patient Goal Type Associated Problems Recent Progress Patient-Stated? Author Blood Pressure < 140/90 Blood Pressure 124/52(2018 4:00 PM EDT) No Silva Mathew RMA BMI (Calculated) < 30 General 35.6(10/06/19 19 4:56 PM EDT) No Silva Mathew RMA Maintain a healthy diet, exercise regularly and maintain an ideal body weight General No Silva Mathew RMA HEMOGLOBIN A1C < 7.0 Result Component 6.6( 9 9:49 AM EST) No Silva Mathew RMA documented as of this encounter Visit Diagnoses Not on filedocumented in this encounter Additional Health Concerns Assessment Noted Time PHQ-9 Depression Total Score: 2 07/27/19 19 9:40 AM EDT A fall risk assessment has been complete d for the patient 05/17/2018 8:17 AM EDT PHQ-2 Depression Total Score: 2 07/27/19 19 9:40 AM EDT documented as of this encounter Care Teams Fish Seiner Relationship Specialty Start Date End Date Sharee Segovia APRN [address] [place], [place] [address] PCP - General Nurse Practitioner-Family 09/21/16 Isaura Pickens LCSW Handbag Operator 09/12/18 9 documented as of this encounter
--- OUTSIDE RECORDS SUMMARY | 2024-02-16 14:49 | XMS_ITS | Encounter Summary ---
Author Organization [place] [address] Care Team Providers Care Pilot Manager Name Role Phone SegoviaSharee nichols NIKO Primary Care Provider [phone] Isaura Pickens BLACK OXIDE OPERATOR Unavailable Unavail able Reason for Visit * Reason Comments Nail Care Diabetes * In Office Procedure (Routine) - Closed Specialty Diagnoses / Procedures Referred By Arsh paetl Referred To Contact Diagnoses Tinea unguium Procedures IN DEBRIDEMENT OF NAILS, 6 OR MORE Mayo Muse, MUNAM [address] [place] [address] Phone: tel: fax: Mayo Muse, MUNAM [address] [place] [address] Phone: tel: fax: Referral ID Status Reason Start Date Expiration Date Visits Re quested Visits Authorized [id number] Closed 09/15/2018 09/15/2019 1 1 Encounter Details Date Type Department Care Team (Late st Contact Info) Description 09/15/2018 2:15 PM EDT Office Visit [facility] [place] [address] [place] [id number] Mayo Muse, DPM [address] [facility] [address] [place] [id number] 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 (HCC) (Primary Dx); Onychomycosis; Pain in toes of both feet; Dystrophic nail; Hemiparesis affecting left side as late effect of stroke (HCC); Pre-ulcerative calluses; History of CVA (cerebrovascular accident) Social History Tobacco Use Types Packs/Day Years [...] on file documented as of this encounter Last Filed Vital Signs Vital Sign Reading Time Taken Comments Blood Pressure - - Pulse - - Temperature - - Respiratory Rate - - Oxygen Saturation - - Inhaled Oxygen Concentration - - Weight 106.1 kg (234 lb) 09/15/2018 2:24 PM EDT Height 165.1 cm (5' 5 ) 09/15/2018 2:24 PM EDT Body Mass Index 38.94 09/15/2018 2:24 PM EDT documented in this encounter Functional Status * Is the [...] of Assessment Author No 08/14/2018 1:48 PM LET Susan Kaye RN * Does this person have difficulty dressing or bathing? Answer Date of Assessment Author Yes 08/14/2018 1:48 PM LET Susan Kaye RN * Because of a physical, mental or emotional condition, does this person have difficulty doing errands alone such as visiting a doctor's office or shopping? Answer Date of Assessment Author Yes 08/14/2018 1:48 PM Susan Centeno, ROLF documented as of this encounter Mental Status * Because of a physical, mental or emotional condition, does this person have serious difficulty concentrating, remembering or making decisions? Answer Entry Date Author No 08/14/2018 1:48 PM Susan Centeno RN documented in this encounter Progress Notes * Mayo Muse DPM - 09/15/2018 2:15 PM EDT [facility] Podiatric Surgery Outpatient Progress Note Mayo Muse DPM Name: Faby Palm Primary Care Physician: Sharee Segovia ARNP Chief Complaint: Chief Complaint Patient presents with ??? Nail Care ??? Diabetes History of Presenting Illness: Faby Palm is a 68 y.o. female who is here for painful toenails 1-5 of both feet. Relates thatpain is with shoe pressures. No new pedal complaints. Medications: Outpatient Medications Marked as Taking for the 09/15/18 encounter (Office Visit) with Keira Muse DPM Medication Sig Dispense Refill ??? acetaminophen 325 mg Oral Tab Take 650 mg by mouth every 4 hours as needed for Pain. Pt takes 1to 2 tabs as needed ??? albuterol (PROVENTIL HFA; VENTOLIN HFA) 90 mcg/actuation Inhl HFA Aerosol Inhaler Inhale 2 Puffs into the lungs 0800, 1200, 1600, 2000. ??? amLODIPine (NORVASC) 5 mg Oral Tablet Take 1 Tab by mouth daily. 30 Tab 0 ??? ARIPiprazole (ABILIFY) 30 mg Oral Tablet Take 1 Tab by mouth daily. 30 Tab 0 ??? aspirin (ASPIRIN) 81 mg Oral Tablet, Chewable Take 1 Tab by mouth daily. 30 Tab 11 ??? atorvastatin (LIPITOR) 20 mg Oral Tablet TAKE ONE TABLET BY MOUTH NIGHTLY 30 Tab 1 ??? busPIRone (BUSPAR) 5 mg Oral Tablet Take 5 mg by mouth 2 times daily. ??? Calcium Carbonate-Vitamin D3 (CALCIUM 600 + D,3,) 600 mg calcium- 200 unit Oral Capsule Take 1 Tab by mouth every 12 hours. ??? clopidogrel (PLAVIX) 75 mg Oral Tablet Take 75 mg by mouth daily. ??? ferrous sulfate 325 mg (65 mg iron) Oral Tablet Take 1 Tab by mouth 2 times daily (with meals).60 Tab 5 ??? gabapentin (NEURONTIN) 100 mg Oral Capsule Take 200 mg by mouth 4 times daily. ??? glipiZIDE (GLUCOTROL) 10 mg Oral Tablet Take 10 mg by mouth 2 times daily. ??? icosapent ethyl (VASCEPA) 1 gram Oral Capsule Take 1 g by mouth 2 times daily. ??? Insulin glargine (BASAGLAR KWIKPEN U-100 INSULIN) 100 unit/mL (3 mL) SubQ Insulin Pen Subcutaneous (Inject under the skin) 35 Units every evening. 3 mL 6 ??? isosorbide mononitrate (IMDUR) 60 mg Oral Tablet Sustained Release 24 hr Take 120 mg by mouth daily. ??? lamoTRIgine (LAMICTAL) 100 mg Oral Tablet Take 50 mg by mouth daily program development manager. And Takes 100 mg at night ??? loperamide (IMODIUM) 2 mg Oral Capsule Take 2 mg by mouth 2 times daily. ??? Melatonin 3 mg Oral Tablet Take 5 mg by mouth nightly. ??? metFORMIN XR (GLUCOPHAGE-XR) 500 mg Oral Tablet Sustained Release 24 hr Take 500 mg by mouth daily (with breakfast). ??? nitroGLYCERIN (NITROSTAT) 0.4 mg SL Tablet, Sublingual Place under the tongue every 5 minutes as needed for Chest pain. ??? oxybutynin (DITROPAN-XL) 10 mg Oral Tablet Extended Rel 24 hr TAKE ONE TABLET BY MOUTH ONCE DAILY 30 Tab 2 ??? pantoprazole (PROTONIX) 40 mg Oral Tablet, Delayed Release (E.C.) Take 1 Tab by mouth daily. 30Tab 2 ??? QUEtiapine (SEROQUEL) 50 mg Oral Tablet Take 100 mg by mouth nightly. ??? RANEXA 1,000 mg Oral Tablet Sustained Release 12 hr TAKE ONE TABLET BY MOUTH EVERY 12 HOURS 60 Tab 0 ??? sertraline (ZOLOFT) 100 mg Oral Tablet Take 200 mg by mouth daily. Reported on 08/12/2016 ??? traZODone (DESYREL) 50 mg Oral Tablet Take 3 Tabs by mouth nightly. 90 Tab 2 Allergies Allergen Reactions ??? Compazine [Prochlorperazine Edisylate] ??? [place] ??? Pentazocine Hcl ??? Prochlorperazine Maleate ??? Talwin [Pentazocine Lactate] Past Medical History: Diagnosis Date ??? Atrial flutter (HCC) EPS, AFL Ablation on 12/31/[address] Tee ??? CHF (congestive heart failure) (HCC) ??? COPD (chronic obstructive pulmonary disease) (HCC) ??? DDD (degenerative disc disease) ??? Diabetes mellitus (HCC) ??? Gastrointestinal hemorrhage associated with gastroduodenitis 04/01/2015 ??? Hypertension ??? Intellectual disability 05/03/2017 ??? WA (myocardial infarction) (HCC) ??? RLS (restless legs syndrome) ??? Schizoaffective disorder, depressive type (HCC) 02/19/2017 ??? Stroke (HCC) 2010 left side affected ??? Suicide attempt (HCC) ??? Urinary incontinence ??? Yeast infection recurrent Past Surgical History: Procedure Laterality Date ??? ABLATION OF DYSRHYTHMIC FOCUS 12/31/2015 atrial flutter ablation by Dr. Tee ??? ANKLE SURGERY ??? BREAST SURGERY reduction ??? JOINT REPLACEMENT left total knee replacement 1999 ??? KNEE SURGERY Left 12/06/2008 ??? LUNG SURGERY partial removal ??? ORTHOPEDIC SURGERY ??? TONSILLECTOMY ??? UPPER GASTROINTESTINAL ENDOSCOPY N/A 04/03/2015 ESOPHAGOGASTRODUODENOSCOPY WITH BIOPSY AND BRUSHING; Surgeon: Be Brown MD; Location: [facility]; Service: Endoscopy Family History Problem Relation Age of Onset ??? Cancer Mother larnyx cancer ??? Colon Cancer Mother ??? Heart Disease Sister ??? Heart Disease Brother ??? No Known Problems Son ??? Seizures Daughter Social History: Faby's social history reviewed: Social History Socioeconomic History ??? Marital status: Spouse name: None ??? Number of children: 2 ??? Years of education: None ??? Highest education level: None Occupational History ??? Occupation: retired Tobacco Use ??? Smoking status: Never Smoker ??? Smokeless tobacco: Never Used Substance and Sexual Activity ??? Alcohol use: No Comment: wednesday mass ??? Drug use: No ??? Sexual activity: Never Social History Narrative Lives at [facility] Has two children and two grandchildren. Is Review of Systems: Review of Systems Constitutional: Negative for activity change, chills, fatigue and fever. Eyes: Negative for visual disturbance. Respiratory: Negative for apnea and shortness of breath. Cardiovascular: Negative for chest pain and leg swelling. Gastrointestinal: Negative for nausea and vomiting. Musculoskeletal: Positive for arthralgias and gait problem. Negative for back pain and joint swelling. Skin: Negative for rash and wound. Neurological: Negative for dizziness, seizures, weakness, light-headedness, numbness and headaches. Hematological: Does not bruise/bleed easily. Psychiatric/Behavioral: Negative for agitation, behavioral problems and confusion. The patient is not nervous/anxious. All other systems reviewed and are negative. Physical Examination: Vital Signs: Ht 5' 5 (1.651 m) Wt 234 lb (106.1 kg) BMI 38.94 kg/m?? General: Faby appears in no acute distress Skin: warm, dry, and intact Head: Normocephalic, without obvious abnormality, atraumatic Lungs: Breathing unlabored Neurological: sensation grossly normal. LE exam separate. LOWER EXTREMITY FOCUSED EXAM: Nail plates of 1-5 toes are long thickened brittle and dystrophic. No gross paronychia is noted theadjacent nail folds. No gross evidence of pyogenic granuloma is noted. Grossly mycotic appearing with subungual debris. No gross evidence of subungual abscess. +Pain to palpation. Skin is thin, cool to touch. ??+Shiny. ??+Paresthesia, +Burning. ??No open wounds. ?? +Preulcerative callus noted to left great toe. Monofilament & Eye Exam 04/21/2017 07/15/2017 04/19/2018 06/02/2018 Foot Exam Performed? Yes Yes Yes Yes R Posterior Tibial Present Absent Present Absent L Posterior Tibial Present Absent Present Absent R Dorsalis Pedis Present Present Present Present L Dorsalis Pedis Present Present Present Present R Monofilament Decreased Decreased Present Decreased L Monofilament Decreased Decreased Present Decreased Reflex Ankle R (optional) - - N/A - Reflex Ankle L (optional) - - N/A - R Inspection Normal Normal Abnormal Normal L Inspection Normal Normal Normal Normal Assessment: Faby was seen today for nail care and diabetes. Diagnoses and all orders for this visit: 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 (HCC) - IN DEBRIDEMENT OF NAILS, 6 OR MORE Onychomycosis - IN DEBRIDEMENT OF NAILS, 6 OR MORE Pain in toes of both feet - IN DEBRIDEMENT OF NAILS, 6 OR MORE - IN TRIM HYPERKERATOTIC SKIN LESION, ONE Dystrophic nail - IN DEBRIDEMENT OF NAILS, 6 OR MORE - IN TRIM HYPERKERATOTIC SKIN LESION, ONE Hemiparesis affecting left side as late effect of stroke (HCC) - IN TRIM HYPERKERATOTIC SKIN LESION, ONE Pre-ulcerative calluses - IN TRIM HYPERKERATOTIC SKIN LESION, ONE History of CVA (cerebrovascular accident) - IN TRIM HYPERKERATOTIC SKIN LESION, ONE - Debrided mycotic appearing hypertrophied nails of both dystrophic thickening and length to reliefof all affected toes. No new orders regarding nail treatment. -Sharp pairing of??pre-ulcerative callus left great toe with 15 blade. - Encouraged daily foot examinations. Call immediately with signs or symptoms of infection which were discussed. - Follow up in 3 months. Mayo Muse DPM 09/15/2018 documented in this encounter Miscellaneous Notes * Patient Instructions - Dana Lynn CMA - 09/15/2018 2:15 PM EDT Images from the original note were not included. Patient Education Diabetes Mellitus and Foot Care Foot care is an important part of your health, especially when you have diabetes. Diabetes may cause you to have problems because of poor blood flow (circulation) to your feet and legs, which can cause your skin to: ?? Become thinner and production truck driver. ?? Break more easily. ?? Heal more slowly. ?? Peel and crack. You may also have nerve damage (neuropathy) in your legs and feet, causing decreased feeling in them. This means that you may not notice minor injuries to your feet that could lead to more serious problems. Noticing and addressing any potential problems early is the best way to prevent future foot problems. How to care for your feet Foot hygiene ?? Wash your feet daily with warm water and mild soap. Do not use hot water. Then, pat your feet and the areas between your toes until they are completely dry. Do not soak your feet as this can dry your skin. ?? Trim your toenails straight across. Do not dig under them or around the cuticle. File the edges of your nails with an emery board or nail file. ?? Apply a moisturizing lotion or petroleum jelly to the skin on your feet and to dry, brittle toenails. Use lotion that does not contain alcohol and is unscented. Do not apply lotion between your toes. Shoes and socks ?? Wear clean socks or stockings every day. Make sure they are not too tight. Do not wear knee-highstockings since they may decrease blood flow to your legs. ?? Wear shoes that fit properly and have enough cushioning. Always look in your shoes before you put them on to be sure there are no objects inside. ?? To break in new shoes, wear them for just a few hours a day. This prevents injuries on your feet. Wounds, scrapes, corns, and calluses ?? Check your feet daily for blisters, cuts, bruises, sores, and redness. If you cannot see the bottom of your feet, use a mirror or ask someone for help. ?? Do not cut corns or calluses or try to remove them with medicine. ?? If you find a minor scrape, cut, or break in the skin on your feet, keep it and the skin around it clean and dry. You may clean these areas with mild soap and water. Do not clean the area with peroxide, alcohol, or iodine. ?? If you have a wound, scrape, corn, or callus on your foot, look at it several times a day to make sure it is healing and not infected. Check for: ? Redness, swelling, or pain. ? Fluid or blood. ? Warmth. ? Pus or a bad smell. General instructions ?? Do not cross your legs. This may decrease blood flow to your feet. ?? Do not use heating pads or hot water bottles on your feet. They may burn your skin. If you have lost feeling in your feet or legs, you may not know this is happening until it is too late. ?? Protect your feet from hot and cold by wearing shoes, such as at the beach or on hot pavement. ?? Schedule a complete foot exam at least once a year (annually) or more often if you have foot problems. If you have foot problems, report any cuts, sores, or bruises to your health care provider immediately. Contact a health care provider if: ?? You have a medical condition that increases your risk of infection and you have any cuts, sores,or bruises on your feet. ?? You have an injury that is not healing. ?? You have redness on your legs or feet. ?? You feel burning or tingling in your legs or feet. ?? You have pain or cramps in your legs and feet. ?? Your legs or feet are numb. ?? Your feet always feel cold. ?? You have pain around a toenail. Get help right away if: ?? You have a wound, scrape, corn, or callus on your foot and: ? You have pain, swelling, or redness that gets worse. ? You have fluid or blood coming from the wound, scrape, corn, or callus. ? Your wound, scrape, corn, or callus feels warm to the touch. ? You have pus or a bad smell coming from the wound, scrape, corn, or callus. ? You have a fever. ? You have a red line going up your leg. Summary ?? Check your feet every day for cuts, sores, red spots, swelling, and blisters. ?? Moisturize feet and legs daily. ?? Wear shoes that fit properly and have enough cushioning. ?? If you have foot problems, report any cuts, sores, or bruises to your health care provider immediately. ?? Schedule a complete foot exam at least once a year (annually) or more often if you have foot problems. This information is not intended to replace advice given to you by your health care provider. Make sure you discuss any questions you have with your health care provider. Document Released: 02/19/2001 Document Revised: 03/26/2017 Document Reviewed: 03/26/2017 [employer] Patient Education ?? 2019 [employer] documented in this encounter Plan of Treatment Scheduled Orders Name Type Priority Associated Diagnoses Orde r Schedule IN DEBRIDEMENT OF NAILS, 6 OR MORE IN Charge Routine 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 (HCC) Onychomycosis Pain in toes of both feet Dystrophic nail Ordered: 09/15/2018 IN TRIM HYPERKERATOTIC SKIN LESION, ONE IN Charge Routine Pain in toes of both feet Dystrophic nail Hemiparesis affecting left side as late effect of stroke (HCC) Pre-ulcerative calluses History of CVA (cerebrovascular accident) Ordered: 09/15/2018 documented as of this encounter Goals Goal Patient Goal Type Associated Problems Recent Progress Patient-Stated? Author Blood Pressure < 140/90 Blood Pressure 124/52(2018 4:00 PM EDT) No Silva Mathew RMA BMI (Calculated) < 30 General 35.6(10/06/19 4:56 PM EDT) No Silva Mathew RMA Maintain a healthy diet, exercise regularly and maintain an ideal body weight General No Silva Mathew RMA HEMOGLOBIN A1C < 7.0 Result Component 6.6( 9 9:49 AM EST) No Silva Mathew RMA documented as of this encounter Visit Diagnoses Diagnosis 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- Primary Onychomycosis Dermatophytosis of nail Pain in toes of both feet Dystrophic nail Other specified disease of nail Hemiparesis affecting left side as late effect of stroke (HCC) Hemiplegia affecting unspecified side, late effect of cerebrovascular disease Pre-ulcerative calluses Corns and callosities History of CVA (cerebrovascular accident) Transient ischemic attack (TIA), and cerebral infarction without residual deficits documented in this encounter Historical Medications * This list may reflect changes made after this encounter. nitroGLYCERIN (NITROSTAT) 0.4 mg SL Tablet, Sublingual Place under the tongue every 5 minutes as needed for Chest pain. metFORMIN XR (GLUCOPHAGE-XR) 500 mg Oral Tablet Sustained Release 24 hr Take 500 mg by mouth daily (with breakfast). isosorbide mononitrate (IMDUR) 60 mg Oral Tablet Sustained Release 24 hr Take 120 mg by mouth daily. loperamide (IMODIUM) 2 mg Oral Capsule Take 2 mg by mouth 2 times daily. 10/06/2018 added in this encounter Additional Health Concerns Assessment Noted Time PHQ-9 Depression Total Score: 2 07/27/19 19 9:40 AM EDT A fall risk assessment has been complete d for the patient 05/17/2018 8:17 AM EDT PHQ-2 Depression Total Score: 2 07/27/19 9:40 AM EDT documented as of this encounter Care Teams Pilot Manager Relationship Specialty Start Date End Date Sharee Segovia APRN [address] [place] [phone] PCP - General Nurse Practitioner-Family 09/21/16 Isaura Pickens, BLACK OXIDE OPERATOR Billing Associate 09/12/18 9 documented as of this encounter
--- OUTSIDE RECORDS SUMMARY | 2024-02-16 14:49 | XMS_ITS | Encounter Summary ---
Author Organization [place] [address] Care Team Providers Care Conversion Worker Name Role Phone Sharee Segovia APRN Primary Care Provider [phone] Isaura Pickens ECONOMICS LECTURER Unavailable Unavail able Reason for Visit * Reason Onset Date Comments Results 09/21/2018 Encounter Details Date Type Department Care Team (Late st Contact Info) Description 09/21/2018 Telephone SEP Quality Transformation [address] [place] [address] Lesia Harris RN Results Social History Tobacco Use Types Packs/Day Years [...] of Assessment Author No 08/14/2018 1:48 PM Susan Centeno, ROLF * Is the person blind or does he/she have serious difficulty seeing even when wearing glasses? Answer Date of Assessment Author No 08/14/2018 1:48 PM Susan Centeno RN * Does this person have serious [...] Susan Kaye RN documented in this encounter Miscellaneous Notes * Telephone Encounter - Lesia Harris RN - 09/23/2018 1:34 PM EDT ESL notified new kit needs shipped. * Telephone Encounter - Lesia Harris RN - 09/21/2018 9:59 AM EDT Attempted contact regarding Cologuard returned empty to lab and to schedule recollection. Left message to return call to [phone]. Will attempt contact as scheduled. documented in this encounter Plan of Treatment [...] 6.6( 9 9:49 AM EST) No Silva Mathew, RMA documented as of this encounter Visit Diagnoses Not on filedocumented in this encounter Additional Health Concerns Assessment Noted Time PHQ-9 Depression Total Score: 2 07/27/19 9:40 AM EDT A fall risk assessment has been complete d for the patient 05/17/2018 8:17 AM EDT PHQ-2 Depression Total Score: 2 07/27/19 9:40 AM EDT documented as of this encounter Care Teams Conversion Worker Relationship Specialty Start Date End Date Sharee Segovia APRN [address] [place], [place] [id number] PCP - General Nurse Practitioner-Family 09/21/16 Isaura Pickens, GINGER Aerial Erector 09/12/18 9 documented as of this encounter
--- OUTSIDE RECORDS SUMMARY | 2024-02-16 14:49 | XMS_ITS | Referral Summary ---
Author Organization [facility] Address [address] [place] [address] Phone Care Team Providers Care Before School Babysitter Name Role Phone Unavailable Primary Care Provider Unavailabl e Allergies Active Allergy Reactions Criticality Noted Date Comments Prochlorperazine Edisylate 5 [place] 08/29/2014 Pentazocine Hcl 06/22/2016 Prochlorperazine Maleate 06/22/2016 Pentazocine Lactate 08/29/2014 Medications * This document contains information received from the source organization and may not represent a complete record from that organization. ferrous sulfate 325 mg (65 mg iron) Oral Tablet Take 1 Tab by mouth 2 times daily (with meals). 60 Tab 5 04/04/19 16 Active sertraline (ZOLOFT) 100 mg Oral Tablet Take 200 mg by mouth daily. Reported on 08/12/2016 Active atorvastatin (LIPITOR) 20 mg Oral Tablet TAKE ONE TABLET BY MOUTH NIGHTLY 30 Tab 1 03/24/19 18 Active sucralfate (CARAFATE) 100 mg/mL Oral Suspension Take 1 g by mouth 4 times daily (before meals and nightly). Active Saccharomyces boulardii (FLORASTOR) 250 mg Oral Capsule Take 250 mg by mouth 2 times daily. Active pantoprazole (PROTONIX) 40 mg Oral Tablet, Delayed Release (E.C.) Take 1 Tab by mouth daily. 30 Tab 2 09/22/19 18 Active aspirin (ASPIRIN) 81 mg Oral Tablet, Chewable Take 1 Tab by mouth daily. 30 Tab 11 09/22/19 18 Active busPIRone (BUSPAR) 5 mg Oral Tablet Take 5 mg by mouth 2 times daily. Active RANEXA 1,000 mg Oral Tablet Sustained Release 12 hrIndications:Stab le angina ([facility]) TAKE ONE TABLET BY MOUTH EVERY 12 HOURS 60 Tab 10/07/19 18 Active glipiZIDE (GLUCOTROL) 10 mg Oral TabletIndications: NSTEMI (non-ST elevated myocardial infarction) ([facility]),ASHD (arteriosclerotic heart disease),Essential hypertension,Chron ic diastolic CHF (congestive heart failure) ([facility]),Hyperlipidem ia, unspecified hyperlipidemia type Take 10 mg by mouth 2 times daily. 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 And Takes 100 mg at night Active QUEtiapine (SEROQUEL) 50 mg Oral Tablet Take 100 mg by mouth nightly. Active gabapentin (NEURONTIN) 100 mg Oral Capsule Take 200 mg by mouth 4 times daily. Active albuterol (PROVENTIL HFA; VENTOLIN HFA) 90 mcg/actuation Inhl HFA Aerosol InhalerIndications :Chronic diastolic CHF (congestive heart failure) ([facility]),Essential hypertension,ASHD (arteriosclerotic heart disease),S/P ablation of atrial flutter,Old LA (myocardial infarction) Inhale 2 Puffs into the lungs 0800, 1200, 1600, 2000. Active clopidogrel (PLAVIX) 75 mg Oral Tablet Take 75 mg by mouth daily. Active icosapent ethyl (VASCEPA) 1 gram Oral Capsule Take 1 g by mouth 2 times daily. Active amLODIPine (NORVASC) 5 mg Oral Tablet Take 1 Tab by mouth daily. 30 Tab 08/15/19 19 Active oxybutynin (DITROPAN-XL) 10 mg Oral Tablet Extended Rel 24 hrIndications:Post ural urinary incontinence TAKE ONE TABLET BY MOUTH ONCE DAILY 30 Tab 2 09/07/19 19 Active Calcium Carbonate-Vitamin D3 (CALCIUM 600 + D,3,) 600 mg calcium- 200 unit Oral Capsule Take 1 Tab by mouth every 12 hours. 09/08/19 Active Insulin glargine (BASAGLAR KWIKPEN U-100 INSULIN) 100 unit/mL (3 mL) SubQ Insulin PenIndications:Natalia cordoba mellitus type 2 in obese,Falls, initial encounter,History of CVA with residual deficit Subcutaneous (Inject under the skin) 35 Units every evening. 3 mL 6 09/10/19 Active isosorbide mononitrate (IMDUR) 60 mg Oral Tablet Sustained Release 24 hr Take 120 mg by mouth daily. Active metFORMIN XR (GLUCOPHAGE-XR) 500 mg Oral Tablet Sustained Release 24 hr Take 500 mg by mouth daily (with breakfast). Active nitroGLYCERIN (NITROSTAT) 0.4 mg SL Tablet, Sublingual Place under the tongue every 5 minutes as needed for Chest pain. Active ARIPiprazole (ABILIFY) 15 mg Oral Tablet Take 1 Tab by mouth daily. 10/08/19 Active melatonin 5 mg Oral Tablet Take 2 Tabs by mouth nightly. 10/07/19 Active Active Problems Patient Care Coordination No te Formatting of this note migh t be different from the original. 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 - [facility] 11/2018 Call Storage Made Easy message with Kyra for lab results . Problem Noted Date Diagnosed Date [facility] resident 11/25/2023 MDD (major depressive disorder), recurrent episo de, mild 08/26/2023 Mood insomnia 08/26/2023 Personality disorder 08/26/2023 Edema of both lower legs due to peripheral venous insufficiency 09/29/2018 Bilateral cellulitis of lower leg 09/29/2018 Hypovolemic shock 08/12/2018 Severe obesity (BMI 35.0-39.9) with comorbidity 07/11/2018 Overview (07/11/2018): --BMI 36.34 with diabetes in problem list Osteopenia of multiple sites 07/07/2018 Old LA (myocardial infarction) 04/18/2018 Overview (04/18/2018): -LA > 4 weeks old Schizoaffective disorder, depressive type 2016 Mood disorder 10/13/2016 Diabetes mellitus type 2 in obese 07/31/2016 Overview (08/15/2018): Lab Results Component Value Date HGBA1C 6.6 (H) 04/19/2018 HGBA1C 6.6 08/09/2017 HGBA1C 6.8 05/02/2017 Metformin stopped due to acute renal injury. Previously on lantus 36u, had hypoglycemia so decreased to 20u/nightly. Will continue same to allow for renal recovery and follow-up 2 weeks S/P ablation of atrial flutter 01/01/2016 Overview (01/01/2016): S/P EPS/atrial flutter ablation on 12/31/[address] eTe Chronic diastolic heart failure 12/26/2015 JACK (acute kidney injury) 09/09/2015 Overview (08/15/2018): 08/12/18: GFR 13, Cr 3.38 > BP and oral diabetes meds stopped, IVF > 08/14/18 GFR 42, Cr 1.[address] Johnson in hospital Continue same and recheck 2 week ASHD (arteriosclerotic heart disease) 09/09/2015 Overview (07/26/2017): July 2017 ? Ost RCA lesion 60% stenosed. ?? Mid RCA lesion 40% stenosed. ?? Mid LAD lesion 50% stenosed. Significant but not clearly flow limiting dz Ostial RCA of 50-70% - difficult to image due to angulation with FFR of 0.92 Mid LAD appearing 50% with FFR of 0.82 Normal LVEDP ?? Coronary Findings 12/2015 Dominance: Right Left Main The vessel is moderate in size. Left Anterior Descending Proximal LAD 60-70% stenosis. Left Circumflex There is mild diffuse disease throughout the vessel. Right Coronary Artery High anterior takeoff. Ostial RCA 20%, no dampening noted. ELIU (iron deficiency anemia) 04/02/2015 Hemiparesis affecting left side as late effect o f stroke 04/01/2015 History of CVA with residual deficit 10/19/2014 Essential hypertension 10/19/2014 Resolved Problems Problem Noted Date Diagnosed Date Resolved Date Socially inappropriate behavior 07/27/2022 08/26/2023 Aggressive behavior 12/18/2019 08/26/19 24 Irritability 12/18/2019 08/26/2023 Agitation 12/18/2019 08/26/2023 Sleep disturbances 12/18/2018 Primary insomnia 11/15/2018 08/26/2023 Medication monitoring encounter 11/15/2018 08/26/2023 Falls, initial encounter 08/12/2018 Mammogram declined 08/30/2017 9 Positive occult stool blood test 08/12/2017 08/26/2023 NSTEMI (non-ST elevated myoc ardial infarction) 08/01/2017 04/18/2018 Overview (04/18/2018): -LA > 4 weeks old -added Old LA Chest pain 07/24/2017 07/26/2018 Overview (07/25/2017): Added automatically from request for surgery [id number] Diarrhea 05/04/2017 07/24/2017 Acute lower UTI 05/04/2017 07/24/2017 Morbid obesity with BMI of 45.0-49.9, adult 05/03/2017 07/24/2017 Metabolic encephalopathy 05/03/2017 Depression with suicidal ideation 05/03/2017 07/24/2017 Intellectual disability 05/03/201708/07 Acute chest pain 04/11/2017 08/26/2023 Hypotension 12/19/2016 07/24/2017 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 10/22/2016 08/10/2017 Recurrent major depressive d isorder, in partial remission 10/22/2016 08/26/2023 Coronary artery disease invo lving [place] coronary artery of [place] heart without angina pectoris 12/30/2015 08/26/2023 Ulcer of esophagus without bleeding 12/29/2015 07/24/2017 Angina pectoris 12/27/2015 07/24/2017 Typical atrial flutter 12/26/201508/25 Chest pain at rest 09/09/2015 9 Elevated alkaline phosphatase level 09/09/2015 12/29/2015 Precordial pain 04/01/2015 07/24/2017 Gastrointestinal hemorrhage associated with gastroduodenitis 04/01/2015 09/07/2018 Acute blood loss anemia 04/01/2015 06/0 07/2017 Weakness of left leg 10/19/2014 016 Frequent falls 10/19/2014 07/24/2017 Peripheral motor neuropathy 10/19/2014 07/24/2017 Atrial flutter 07/24/2017 Overview (02/03/2016): EPS, AFL Ablation on 12/31/[address] Tee Immunizations Name Administration Dates Next Due Influenza Patient Reported 01/05/2018 Influenza Vaccine Quadrivalent PF 12/27/2015 Pneumococcal Conjugate Vaccine 13 Valent 016 Pneumococcal Polysaccharide 23 Valent 07/26/2017 Social History Tobacco Use Types Packs/Day Years [...] file Not on file Not on file Last Filed Vital Signs Vital Sign Reading Time Taken Comments Blood Pressure 124/52 10/06/2018 4:00 PM EDT Pulse 76 10/06/2018 6:00 PM EDT Temperature 36.7 ??C (98 ??F) 10/06/2018 4:00 PM EDT Respiratory Rate 18 10/06/2018 6:00 PM EDT Oxygen Saturation 94% 10/06/2018 6:00 PM EDT Inhaled Oxygen Concentration - - Weight 107.2 kg (236 lb 5.3 oz) 10/06/2018 5:34 AM EDT Height 174 cm (5' 8.5 ) 10/05/2018 4:56 PM EDT Body Mass Index 35.41 10/05/2018 4:56 PM EDT Functional Status * Is the person deaf or does he/she have serious difficulty hearing? Answer Date of Assessment Author No 10/06/2018 6:12 PM EDT Ronaldo Marley RN * Is the person blind or does he/she have serious difficulty seeing even when wearing glasses? Answer Date of Assessment Author No 10/06/2018 6:12 PM EDT Ronaldo Marley RN * Does this person have serious difficulty walking or climbing stairs? Answer Date of Assessment Author Yes 10/06/2018 6:12 PM EDT Ronaldo Marley RN * Does this person have difficulty dressing or bathing? Answer Date of Assessment Author Yes 10/06/2018 6:12 PM EDT Ronaldo Marley RN * Because of a physical, mental or emotional condition, does this person have difficulty doing errands alone such as visiting a doctor's office or shopping? Answer Date of Assessment Author Yes 10/06/2018 6:12 PM EDT Ronaldo Marley RN Mental Status * Because of a physical, mental or emotional condition, does this person have serious difficulty concentrating, remembering or making decisions? Answer Entry Date Author Yes 10/06/2018 6:12 PM EDT Ronaldo Marley RN Plan of Treatment Not on file Goals Goal Patient Goal Type Associated Problems [...] 9:49 AM EST) No Silva Mathew RMA Procedures Procedure Name Priority Date/Time Associated Diagnosis Comments MM MAMMO DIGITAL SCREENING W CAD BILAT Routine 07/25/2018 3:22 PM EDT Encounter for screening mammogram for breast cancer DX BONE DENSITY AXIAL SKELETON Routine 07/05/2018 3:04 PM EDT Menopause MICROALBUMIN/CREATIN INE RATIO URINE Routine 05/17/2018 9:24 AM EDT 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) LIPID SCREEN Routine 04/19/2018 9:49 AM EST Screening for lipid disorders HEMOGLOBIN A1C Routine 04/19/2018 9:49 AM EST 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) FECAL HEME (FIT) CANCER SCREEN Routine 08/11/2017 4:29 PM EDT Screening for colon cancer HCV ANTIBODY SCREEN W/ REFLEX Routine 10/22/2016 2:42 PM EDT Need for hepatitis C screening test from Last 3 Months or Most Recently Relevant to Health Maintenance Results * MM MAMMO DIGITAL SCREENING W CAD BILAT (07/25/2018 3:22 PM EDT) Anatomical Region Laterality Modality Breast Bilateral Mammography 07/25/2018 4:07 PM EDT Impressions 07/25/2018 4:07 PM EDT Negative ??([id number]) ~ RECOMMENDATION: Routine screening mammogram in 1 year. ~ DISCLAIMER * Any patient with a palpable abnormality, unexplained by breast imaging, should be managed on clinical basis by the attending physician. * Breast imaging has a false negative rate of 15%. * The patient was notified by mail of the results of this examination. *The patient's information was entered into a reminder system with a target due date for the next mammogram. The mammogram was reviewed by a Radiologist and CAD. Narrative 07/25/2018 4:07 PM EDT Procedure:MM MAMMO DIGITAL SCREENING W CAD BILAT ~ Reason for exam: screening, asymptomatic. Z12.31-Encounter for screening mammogram for malignant neoplasm of [id number] ~ MM MAMMO DIG SCREEN CAD BILAT Bilateral CC and MLO view(s) were taken. There are scattered fibroglandular densities. Prior study comparison: No prior studies available for comparison. No mammographic evidence of malignancy. No suspicious calcifications. ~ Procedure Note Rainer Gonsalez DO - 07/25/2018 Procedure:MM MAMMO DIGITAL SCREENING W CAD BILAT ~ Reason for exam: screening, asymptomatic. Z12.31-Encounter for screening mammogram for malignant neoplasm of [id number]-CM ~ MM MAMMO DIG SCREEN CAD BILAT Bilateral CC and MLO view(s) were taken. There are scattered fibroglandular densities. Prior study comparison: No prior studies available for comparison. No mammographic evidence of malignancy. No suspicious calcifications. ~ IMPRESSION: Negative ([id number]) ~ RECOMMENDATION: Routine screening mammogram in 1 year. ~ DISCLAIMER * Any patient with a palpable abnormality, unexplained by breast imaging, should be managed on clinical basis by the attending physician. * Breast imaging has a false negative rate of 15%. * The patient was notified by mail of the results of this examination. *The patient's information was entered into a reminder system with atarget due date for the next mammogram. The mammogram was reviewed by a Radiologist and CAD. us Sharee Segovia GLOST KILN [employer]ACER IM MAMMOGRAPHY ORDERABLE S Final Result * DX BONE DENSITY AXIAL SKELETON (07/05/2018 3:04 PM EDT) Anatomical Region Laterality Modality Dexa Scan 07/05/2018 Narrative 07/06/2018 12:03 PM EDT Indication: The patient is a female age 65 or older who requires a bone density assessment. Study was performed on [email or web address] 5. Bone Density: Region ?BMD ? T-score ? Z- score ?? AP Spine (L1, L2, L4) ? 0.909 ?-1.1 ? 0.7 ? Femoral Neck (Left) ? 0.726 ?-1.1 ? 0.5 ? Total Hip (Left) ?0.845 ?-0.8 ? 0.5 ? Femoral Neck (Right) ?0.709 ?-1.3 ? 0.4 ? Total Hip (Right) ? 0.846 ?-0.8 ? 0.5 ? 1/3 Radius (Left) ? 0.642 ?-0.9 ? 1.0 ? World Health Organization criteria for BMD interpretation classify patients as: Normal (T-score at or above -1.0), Low Bone Density (T-score between -1.0 and -2.5), or Osteoporotic (T-score at or below -2.5). T Scores are reported in Postmenopausal women and in men age 50 and older. Z-scores are reported in females prior to menopause and in males younger than age 50. 10-year Fracture Risk(1): Major Osteoporotic Fracture ?7.9% Hip Fracture ? 0.7% Reported Risk Factors: [place] (), Neck BMD=0.709, BMI=38.6 (1) FRAX(R) Version 3.08. Fracture probability calculated for an untreated patient. Fracture probability may be lower if the patient has received treatment. Clinical Information Provided by Patient: Has used or is currently using the following medications: Calcium, Vitamin D, Diuretic, Anticonvulsant Has had or currently has the following medical conditions: Asthma, Emphysema, or COPD, Diabetes Mellitus, Back pain, Any seizure disorder, Depression Patient maximum height was 66.5 Menopause Age: 46 Patient is postmenopausal Interpretation: Bone mineral density is in the low bone density range. Medical evaluation for secondary causes of low bone mineral density may be appropriate. A minimum of two years may be required between bone density studies due to inherent testing precision limitations. Intervals between BMD testing should be determined according to each patient's clinical status: typically one year after initiation or change in therapy is appropriate, with longer intervals once therapeutic effect is established. The left and right hip portion of the study is limited by body habitus. The spine portion of the study is limited by patient body habitus with elevated TH value. The spine portion of the study is limited by visual hypertrophic change with associated vertebra deleted. Reported by: Alessandra Arguelles PA-C, BHUMIKA on 07/05/2018 3:35:00 PM. Sharee Segovia APRN IMG DEXA ORDERABLES Final Result * MICROALBUMIN/CREATININE RATIO URINE (05/17/2018 9:24 AM EDT) Urine Microalb 17.7 mg/L 05/17/2018 4:35 PM EDT [facility] Urine Creatinine 76.0 mg/dL 05/17/2018 4:35 PM EDT [facility] Ur Microalb/Creat 23 0 - 30 mg/g 05/17/2018 4:35 PM EDT [facility] Urine URINE SPECIMEN COLLECTION / Unknown 05/17/2018 9:24 AM EDT 05/17/2018 9:24 AM EDT Sharee Segovia APRN URINE ORDERABLES Final Re sult Performing Organization Address City/[facility] Co de Phone Number [facility] [address] [facility] , [place] [address] * (ABNORMAL) HEMOGLOBIN A1C (04/19/2018 9:49 AM EST) Hgb A1C 6.6(H) 4.2 - 5.6 % 04/19/2018 4:07 PM EST [facility] Est. Avg Glucose 143 mg/dL 04/19/2018 4:07 PM EST [facility] Blood VENOUS BLOOD / Unknown Venipuncture / Unknown 04/19/2018 9:49 AM EST 04/19/2018 9:49 AM EST Narrative [facility] - 04/19/2018 4:07 PM EST REFERENCE RANGE: Normal: 4.0-5.6% Pre-diabetes: 5.7-6.4% Provisional diagnosis of diabetes: >6.4% Hgb F>10% and anything which shortens red cell survival, such as hemolytic anemia, or unstable hemoglobin variants such as HbSS, HbSC, or HbCC, will lower the HbA1c value associated with a given level of glycemic control. ? Sharee Segovia [employer] PLACER CHEMISTRY ORDERABLES Mildred l Result [facility] [address], [place] [address] * LIPID SCREEN (04/19/2018 9:49 AM EST) Cholesterol 116 <=200 mg/dL 04/19/2018 4:24 PM EST [facility] Comment: < 200 ?Desirable 200 - 239 ? Borderline High >= 240 ?High Triglyceride 124 <=150 mg/dL 04/19/2018 4:24 PM EST [facility] Comment: < 150 ? Normal 150 - 199 ?Borderline High 200 - 499 ?High ??>= 500 ? Very High HDL 51 >=40 mg/dL 04/19/2018 4:24 PM EST [facility] Comment: ??> 60 ?Optimal 40 - 60 ?Acceptable ?? < 40 ?Low LDL Calculated 40 <=100 mg/dL 04/19/2018 4:24 PM EST [facility] Comment: < 100 ?Optimal 100 - 129 ? Near or above optimal 130 - 159 ? Borderline High 160 - 189 ? High >= 190 ?Very High Non-HDL-C Calculated 65 <=129 mg/dL 04/19/2018 4:24 PM EST [facility] Comment: <130 ?Desirable 130-159 Above Desirable 160-189 Borderline High 190-219 High >= 220 ??Very High Fasting Specimen? Yes None 019 4:24 PM EST [facility] Blood VENOUS BLOOD / Unknown Venipuncture / Unknown 04/19/2018 9:49 AM EST 04/19/2018 9:49 AM EST Sharee Segovia [employer]ACER CHEMISTRY ORDERABLES Mildred l Result [facility] [address] [facility], [place] [address] * (ABNORMAL) FECAL HEME SCREEN (08/11/2017 4:29 PM EDT) Fecal Heme Scrn Positive(A ) Negative 08/11/2017 8:34 PM EDT [facility] Stool COLON STRUCTURE / Unknown 08/11/2017 4:29 PM EDT 08/11/2017 4:29 PM EDT us Sharee Juliette [employer] IMMUNOLOGY ORDERABLES Fin al Result [facility] [address] [place] [address] * HEPATITIS C ANTIBODY - SCREENING (10/22/2016 2:42 PM EDT) Hep C Ab Negative Negative [facility] Blood specimen (specimen) UPPER LIMB STRUCTURE / Unknown 10/22/2016 2:42 PM EDT 10/22/2016 8:27 PM EDT Sharee Segovia G[employer]ACER HEMATOLOGY ORDERABLES Fin al Result Performing Organization Address [facility] [place] [address] from Last 3 Months or Most Recently Relevant to Health Maintenance Insurance MEDICARE PART B [place] [id number] MEDICARE PART B [facility] [place] [facility] [place] [facility] [place] * Guarantor: Faby Palm Account Type Relation to Patient Date of Phone Billing Address [place] Personal Family Self Advance Directives For more information, please contact: [phone] * Full Code (Latest Code Status on File) Date Activated Date Inactivated Comments 10/05/2018 8:15 PM 10/07/2018 12:59 AM * Full Code Date Activated Date Inactivated Comments 10/02/2018 1:55 PM 10/05/2018 8:14 PM * Full Code Date Activated Date Inactivated Comments 08/12/2018 3:12 PM 08/14/2018 6:44 PM * Full Code Date Activated Date Inactivated Comments 08/12/2018 12:57 PM 08/12/2018 3:11 PM * Full Code Date Activated Date Inactivated Comments 09/21/2017 2:10 AM 09/21/2017 6:36 PM
--- OUTSIDE RECORDS SUMMARY | 2024-02-16 14:49 | XMS_ITS | Encounter Summary ---
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 midpoint 1-2 inches in multiple planes Standing Balance 2/5 indep, requires both UE support Exercise Exercise Yes Additional Comments Balance exercises with and without eyes closed Education Education To use call light to request assistance with all mobility;Patient/Family Education;Role of Therapy;Safety with mobility;Cues for proper technique;Discharge planning;Up with assistance only;Precautions;Safe and proper technique with transfers;Safe and proper technique with gait pattern Patient Safety Patient Safety Patient left in chair with needs in reach;Chair/personal alarm activated Assessment Assessment Decreased gait;Decreased functional mobility;Decreased balance;Decreased activity tolerance ;Decreased safety judgement ;Decreased endurance;Decreased high-level ADLs Prognosis Good;With continued PT s/p acute discharge Progress Progressing toward goals Rationale for Skilled Therapy Fall Risk;Balance Deficits;Not safe with independent transfers;Not safe ambulating independently Plan Treatment/Interventions Continue with current plan of care Recommendation PT Recommendation [facility] Therapy Equipment Recommended 4 Wheel walker Time In / Time Out [id number] IP PT Treatment Minutes 24 (15 GT; 9 TA) Cosigned by Rocio Haile PT at 10/05/2018 2:16 PM EDT Associated attestation - Rocio Haile PT - 10/05/2018 2:16 PM EDT I agree with student PT's documentation and POC. Clinical instructor was physically present and directing the entire session. Rocio Haile PT * Jemima Manrique MSW - 10/05/2018 11:41 AM EDT 10/05/18 1136 Discharge Planning Evaluation Actual Discharge Plan 10/05/18: SW reviewed chart. Awaiting placement at this time. [facility], where patient was admitted from, is not able to accept patient back at discharge, per Ely ([phone]). Mass referral sent. [facility] are following. SW spoke to ELIZABETH hurley [facility], who is reviewing case and will notify if they are able to accept. LISA also spoke withRegina with [facility], who believe they can accept but is going to meet withpatient at bedside today and can confirm after visit. 30 day exemption form signed by attending MD and placed on chart, per Regin'as request. Patient is FTSB eligible for transportation at discharge. SW to follow. Discharge Parameters Placement IP Mental Health Referral Pending No Discharge to Assisted Living Anticipated post-acute care needs Nursing Facility Identified Needs and Options Personal Care;Assisted Living Does patient need health safety instructor? No Discussed discharge plans with Patient Mini-mental exam completed? No Agency/Facility Options Offered, list provided Yes [facility] Financial Disclosure completed? Yes Patient/Family Prefer No preference Referral Received Denial from Insurance No Transportation Arrangements Other (Specify) (FTSB) Obtain prescription meds at discharge? Medicare D/Medicaid RRS Is patient score high risk on RRS score? No * Mayo Robbins MD - 10/04/2018 12:08 PM EDT Images from the original note were not included. PROGRESS NOTE ASSESSMENT & PLAN: JACK on CKD. Stage 3 CKD - Monitor renal function, Cr back to baseline Cellulitis bilateral LE - Doxycycline PO Falls - PT eval Diabetes - Lantus - Novolog - Glipizide HTN - Amlodipine - Imdur Schizoaffective disorder - Abilify - Buspar - Lamictal - Zoloft Left sided hemiparesis, Hx of CVA - Stable GERD - Carafate Insomnia - Melatonin PPX: Lovenox FEN: REGULAR DIET Dispo: Continue care on unit. Medically ready for discharge when placement found Active Hospital Problems Diagnosis ??? *Bilateral cellulitis of lower leg ??? Edema of both lower legs due to peripheral venous insufficiency ??? Falls, initial encounter ??? Severe obesity (BMI 35.0-39.9) with comorbidity (HCC) ??? Osteopenia of multiple sites ??? Intellectual disability ??? Schizoaffective disorder, depressive type (HCC) ??? Recurrent major depressive disorder, in partial remission (HCC) ??? Mood disorder (HCC) ??? Diabetes mellitus type 2 in obese (HCC) ??? Chronic diastolic heart failure (HCC) ??? ASHD (arteriosclerotic heart disease) ??? Hemiparesis affecting left side as late effect of stroke (HCC) ??? Essential hypertension SUBJECTIVE: Faby Palm is a 68 y.o. female being followed for Bilateral cellulitis of lower leg. Seen and examined today. Patient reports having trouble sleeping. Would like to try increased dose of melatonin ROS: Denies fever. OBJECTIVE: BP 135/58 (BP Location: Left arm, Patient Position: Semi Fowlers) Pulse 62 Temp 97.5 ??F (36.4 ??C) (Oral) Resp 18 Ht 5' 8 (1.727 m) Wt 232 lb (105.2 kg) SpO2 95% ? No BMI 35.28 kg/m?? I/O last 3 completed shifts: In: 291.1 [P.O.:240; I.V.:51.1] Out: 5 [Urine:1774] Weight: 232 lb (105.2 kg) Constitutional: NAD Pulmonary: CTAB. Normal effort Cardiovascular: RRR Abdominal: Soft. NT ND NBS Extremities: Trace edema BLE Skin: Resolving erythema in bilateral lower legs. No increased warmth Neurological: Alert. No focal deficits Labs: Laboratory data and diagnostic testing reviewed from 10/04/18. Mayo Robbins MD * Ela Curiel - 10/03/2018 7:57 PM EDT 10/03/18 1956 Pastoral Care Encounter Visited With Patient Date of visit 10/03/18 Visit Type Follow-up Need to follow-up? Yes Oriental Orthodox Needs Oriental Orthodox articles (rosary and Miraculous Medal) Spiritual Needs Christianity? Religion Oriental Orthodox Affiliation [facility] Contact [employer]/[facility] Community Yes Has Pts jane community been notified Yes Pastoral Care Issues Comments will keep in prayer Pastoral Care Plan/Intervention Plan/Intervention Prayer Plan/Intervention Comments Ela * Jemima Manrique INVESTMENT ANALYST - 10/03/2018 12:23 PM EDT 10/03/18 1214 Discharge Planning Evaluation Actual Discharge Plan 10/03/18: LISA reviewed chart and discussed with nursing. Patient from [facility]. SW spoke to Nii ([phone]) from [facility] on 09/30 who stated that they had been working with APS regarding patient and APS had suggested that they send patient tospital as patient has been requiring more care than they are able to prepare. Per Ely, patient is a fall risk which is why she is not able to return. There are concerns that patient may not meet level of care for Medicaid pending bed. LISA had sent mass referral to find accepting facility. Received call from [facility] who are possibly able to accept but want to do an in person e valuation prior to accept, which will occurr this afternoon or tomorrow. Will continue to attempt to find accepting facility. SW to follow. Discharge Parameters Placement IP Mental Health Referral Pending No Discharge to Assisted Living Anticipated post-acute care needs Nursing Facility Identified Needs and Options Personal Care;Assisted Living Does patient need health safety instructor? No Discussed discharge plans with Patient Mini-mental exam completed? No Agency/Facility Options Offered, list provided N/A [facility] Financial Disclosure completed? N/A Referral Received Denial from Insurance No Transportation Arrangements Other (Specify) (FTSB) Obtain prescription meds at discharge? Medicare D/Medicaid 10/03/18 1214 Discharge Planning Evaluation Actual Discharge Plan 10/03/18: SW reviewed chart and discussed with nursing. Patient from [facility]. SW spoke to Nii ([phone]) from [facility] on 09/30 who stated that they had been working with APS regarding patient and APS had suggested that they send patient tohospital as patient has been requiring more care than they are able to prepare. Per Nii, patient is a fall risk which is why she is not able to return. There are concerns that patient may not meet level of care for Medicaid pending bed. LISA had sent mass referral to find accepting facility. Received call from [facility] who are possibly able to accept but want to do an in person e valuation prior to accept, which will occurr this afternoon or tomorrow. Will continue to attempt to find accepting facility. SW to follow. Discharge Parameters Placement IP Mental Health Referral Pending No Discharge to Assisted Living Anticipated post-acute care needs Nursing Facility Identified Needs and Options Personal Care;Assisted Living Does patient need health safety instructor? No Discussed discharge plans with Patient Mini-mental exam completed? No Agency/Facility Options Offered, list provided N/A [facility] Financial Disclosure completed? N/A Referral Received Denial from Insurance No Transportation Arrangements Other (Specify) (FTSB) Obtain prescription meds at discharge? Medicare D/Medicaid * Huseyin Freeman, ROLF - 10/03/2018 12:05 PM EDT Patient has been complaining of shaky feeling in upper and lower extremities. States she is having trouble eating and drinking due to her shakiness. MD aware and is going to stop some of her medications. Started on IV fluids due to dehydration. Encouraged fluids. Continue to monitor. * Sherif Bartholomew MD - 10/03/2018 10:44 AM EDT [facility] Progress Note Name: Faby Palm ADDRESS: [address] [place] [id number] : 1950 AGE: 68 y.o. HPI: 68 y.o., female patient admitted for Cellulitis of lower extremity, unspecified laterality [L03.119] SUBJECTIVE: Patient was seen Still complaining of jerking movements of time that made her dropped her coffee and interfering with her ability to hold her utensils and feed herself. No fever No chills overnight Denies any chest pain No palpitations No cough No SOB No abdominal pain No nausea No vomiting OBJECTIVE: I personally reviewed this patient???s laboratories results: CBC: Lab Results Component Value Date WBC 6.5 09/29/2018 RBC 3.97 09/29/2018 HGB 12.1 09/29/2018 HCT 36.4 09/29/2018 MCV 91.8 09/29/2018 MCHC 33.1 09/29/2018 RDW 14.7 09/29/2018 MPV 9.4 09/29/2018 BMP: Lab Results Component Value Date NA 146 (H) 10/03/2018 K 4.8 10/03/2018 CL 110 (H) 10/03/2018 CO2 28 10/03/2018 BUN 38 (H) 10/03/2018 CREATININE 1.87 (H) 10/03/2018 CALCIUM 9.7 10/03/2018 GFRAFRAM 32 (L) 10/03/2018 GFRNONAFRAM 27 (L) 10/03/2018 GLU 72 (L) 10/03/2018 Hepatic: Lab Results Component Value Date ALKPHOS 145 (H) 09/29/2018 ALT 10 09/29/2018 AST 10 09/29/2018 PROT 7.7 09/29/2018 LABBILI 0.6 09/29/2018 No results found for: AMYLASE, LIPASE U/A:No results found for: SPECGRAV, UAPROTEIN, BLOODU, NITRITE, LEUKOCYTESUR, WBCUA, RBCUA RADIOGRAPHIC DATA REVIEWED BY ME: No results found. Results for orders placed during the hospital encounter of 08/12/18 EK EKG [address] [facility] Test Date: 2018-08-12 Pat Name: FABY PALM Department: DEPID Room: E2409 Gender: Female Parachute Panel Joiner: Cruz : 1950 Requested By: RAUL Saleem Order Number: [id number] Reading MD: Kamari Goss MD Measurements Intervals [place] Rate: 46 P: [place]: 164 QRS: QRSD: 97 T: 62 QT: 489 QTc: 429 Interpretive Statements SINUS BRADYCARDIA LOW QRS VOLTAGE IN PRECORDIAL LEADS INFERIOR MYOCARDIAL INFARCTION, OF INDETERMINATE AGE ANTEROSEPTAL MYOCARDIAL INFARCTION, PROBABLY OLD NO CHANGE Electronically Signed On 08-12-2018 12:52:00 EDT by Kamari Goss MD PHYSICAL EXAM: BP 118/54 (BP Location: Left arm, Patient Position: Semi Fowlers) Pulse 64 Temp 97.8 ??F (36.6 ??C) (Oral) Resp 16 Ht 5' 8 (1.727 m) Wt 232 lb (105.2 kg) SpO2 99% ? No BMI 35.28 kg/m?? GENERAL APPEARANCE: Not in any distress at the time of this encounter PSYCHIATRIC: alert and oriented x 4 (time, place, person and situation), normal affect, stable mood. HEENT: head atraumatic, normocephalic NECK: supple, no lymph node palpated LUNGS: Clear breath sounds bilateral auscultation HEART: Regular S1-S2 ABDOMEN: BS+, non-distended, non-tender, no organomegaly palpated, no rebound, no guarding : no CVA tenderness EXTREMITIES: no gross deformities, no edema, pulses present and equal bilaterally SKIN: Very dry but discussed with physical therapy no rash, no redness, IV site is clean w/o signs of infection NEURO: no tremors ASSESSMENT/PLAN : Active Hospital Problems Diagnosis ??? *Bilateral cellulitis of lower leg ??? Edema of both lower legs due to peripheral venous insufficiency ??? Falls, initial encounter ??? Severe obesity (BMI 35.0-39.9) with comorbidity (HCC) ??? Osteopenia of multiple sites ??? Intellectual disability ??? Schizoaffective disorder, depressive type (HCC) ??? Recurrent major depressive disorder, in partial remission (HCC) ??? Mood disorder (HCC) ??? Diabetes mellitus type 2 in obese (HCC) ??? Chronic diastolic heart failure (HCC) ??? ASHD (arteriosclerotic heart disease) ??? Hemiparesis affecting left side as late effect of stroke (HCC) ??? Essential hypertension Off-service summary note: 68-year-old lady admitted for cellulitis of the lower extremities. Complains of some involuntary jerking movements of her upper extremities that are likely due to her regimen of multiple antipsychotic/antidepressant combined. Now with acute kidney injury from decreased p.o. intake. Acute kidney injury Secondary to dehydration IV hydration Monitor I&O's Monitor BMP Ataxia? Side effects of all her psychiatric medications? Discussed with patient Discontinue trazodone altogether Decrease Abilify dose by 50%(from 30 mg to 50 mg daily) Decrease Zoloft from 200 mg to 100 mg daily Patient also on Seroquel at night (!!!!!) Cellulitis lower extremities? Diagnosed on admission Continue PO antibiotics day # 4 ?? Falls Fall precautions and get physical therapy Discussed with physical therapy ?? Chronic diastolic heart failure Compensated at the time of this encounter On aspirin Amlodipine ?? Schizoaffective disorder Major depressive disorder Unspecified mood disorder per chart Zoloft dose decreased Seroquel Trazodone discontinued. Seems to have been ordered for insomnia ?? Left-sided hemiparesis as a late effect of prior stroke Monitor closely Continue aspirin Lipitor ?? Essential hypertension Amlodipine Continue to monitor blood pressure ?? DM type 2, uncontrolled with complications Accuchecks ACHS Diabetic d iet ?? Insulin therapy ? DVT prophylaxis D/C planning: SNF? outpt PT? Sherif Bartholomew MD10/03/2018 10:44 AM * Rocio Haile, PT - 10/03/2018 10:40 AM EDT 10/03/18 1040 PT Subjective Note Type Treatment/Progress Patient Room/Unit 4611 PT Subjective Comments #1 patient in bed, she is agreeable to PT, she is pleasant and cooperative, she reports issues with jerking movements, however none noticed this date Discharge Information This progress note will serve as the discharge summary if no further therapy is provided prior to the patient being discharged from the hospital. Pain Screening PT/OT Patient Currently in Pain No Cognition Orientation Intact Arousal Normal Safety Awareness Impaired Safety Awareness Impairment Minimal Impairments: Needs up to 25% input/direction from therapist in order to identify safety issues and maintain safety. Affect/Ability to cope Normal Command Following Normal Memory Intact Communication Intact Precautions Therapy Precautions Yes Precaution info given To use call light to request assistance with all mobility Other precautions fall risk, full code, recommend bed/chair alarm Observation Presentation Patient resting in bed Observation IV;Bed Alarm;Chair Alarm Bed Mobility Rolling Independent Supine to Sit Supervision Sit to Supine Supervision Transfers Sit to Stand Contact guard assist;Min assist Stand to Sit Contact guard assist;Min assist Gait Gait Contact guard assist;Min assist;With verbal cues Gait Distance (Feet) 150 Feet (x2 trials, shoes donned for second gait trial) Assistive Device 4 Wheel walker Pattern Slow chhaya;Step to;Foot drag L;Foot flat R;Foot flat L Additional Comments patient lacks heel strike and toe off, at times, she stumbles and gait pattern is semi-festinating, diabetic foot changes noted AM PAC: How much help from another person does the patient currently need... turning from your back to your side while in a flat bed without using bedrails? 4 moving from lying on your back to sitting on the side of a flat bed without using bedrails? 3 moving to and from a bed to a chair? 3 standing up from a chair using your arms (e.g. wheelchair, or bedside chair)? 3 need to walk in hospital room? 3 climbing 3-5 steps with a railing? 2 AM PAC: BASIC MOBILITY SCORING AM PAC Moblity Raw Score 18 AM PAC Mobility CMS 0-100% Functional Percentage 40.47 AM PAC Mobility CMS G Code Modifier CK Balance Sitting Balance 4/5 moves/returns trunkal midpoint 1-2 inches in multiple planes Standing Balance 1+/5>50% (min assist) Exercise Exercise Yes Additional Comments standing marches and heel raises x10 reps each Education Education To use call light to request assistance with all mobility;Patient/Family Education;Role of Therapy;Safety with mobility;Cues for proper technique;Discharge planning;Up with assistance only;Precautions;Safe and proper technique with transfers;Safe and proper technique with gait pattern Patient Safety Patient Safety Patient in bed with needs in reach;Bed alarm activated Assessment Assessment Decreased gait;Decreased functional mobility;Decreased balance;Decreased RightLower Extremity strength;Decreased Left Lower Extremity strength;Decreased activity tolerance ;Decreased safety judgement ;Decreased endurance;Decreased high-level ADLs;Decreased self-care trans Prognosis Good;With continued PT s/p acute discharge Progress Progressing toward goals Rationale for Skilled Therapy Fall Risk;Balance Deficits;Not safe with independent transfers;Not safe ambulating independently Plan Treatment/Interventions Continue with current plan of care Recommendation PT [facility]ation [facility] ([facility]) Time In / Time Out [id number] IP PT Treatment Minutes 30 (15 GT, 15 NMR) * Marjorie Stearns, RN - 10/03/2018 6:24 AM EDT Blue pill found in patient's bed. Spoke with pharmacy to confirm; pill identified as oxybutynin. Disposed of properly. * Sherif Bartholomew MD - 10/02/2018 1:46 PM EDT [facility] Progress Note Name: Faby Palm ADDRESS: [address] [place] [address] : 1950 AGE: 68 y.o. HPI: 68 y.o., female patient admitted for Cellulitis of lower extremity, unspecified laterality [L03.119] SUBJECTIVE: Patient was seen Complain of jerking movements of the upper extremities at times??? No fever No chills overnight Denies any chest pain No palpitations No cough No SOB No abdominal pain No nausea No vomiting OBJECTIVE: I personally reviewed this patient???s laboratories results: CBC: Lab Results Component Value Date WBC 6.5 09/29/2018 RBC 3.97 09/29/2018 HGB 12.1 09/29/2018 HCT 36.4 09/29/2018 MCV 91.8 09/29/2018 MCHC 33.1 09/29/2018 RDW 14.7 09/29/2018 MPV 9.4 09/29/2018 BMP: Lab Results Component Value Date NA 141 09/29/2018 K 4.6 09/29/2018 CL 105 09/29/2018 CO2 30 (H) 09/29/2018 BUN 22 09/29/2018 CREATININE 1.30 09/29/2018 CALCIUM 10.3 09/29/2018 GFRAFRAM 49 (L) 09/29/2018 GFRNONAFRAM 43 (L) 09/29/2018 GLU 83 09/29/2018 Hepatic: Lab Results Component Value Date ALKPHOS 145 (H) 09/29/2018 ALT 10 09/29/2018 AST 10 09/29/2018 PROT 7.7 09/29/2018 LABBILI 0.6 09/29/2018 No results found for: AMYLASE, LIPASE U/A:No results found for: SPECGRAV, UAPROTEIN, BLOODU, NITRITE, LEUKOCYTESUR, WBCUA, RBCUA RADIOGRAPHIC DATA REVIEWED BY ME: No results found. Results for orders placed during the hospital encounter of 08/12/18 EK [facility]: 2018[facility]12 Pat Name: FABY PALM Department: DEPID Room: E2409 Gender: Female Parachute Panel Joiner: [facility] : 1950 Requested By: RAUL Saleem Order Number: [id number] Reading MD: Kamari Goss MD Measurements Intervals [place] Rate: 46 P: [place]: 164 QRS: QRSD: 97 T: 62 QT: 489 QTc: 429 Interpretive Statements SINUS BRADYCARDIA LOW QRS VOLTAGE IN PRECORDIAL LEADS INFERIOR MYOCARDIAL INFARCTION, OF INDETERMINATE AGE ANTEROSEPTAL MYOCARDIAL INFARCTION, PROBABLY OLD NO CHANGE Electronically Signed On 08-12-2018 12:52:00 EDT by Kamari Goss MD PHYSICAL EXAM: BP 145/75 (BP Location: Left arm, Patient Position: Sitting) Pulse 70 Temp 97.3 ??F (36.3 ??C) (Oral) Resp 18 Ht 5' 8 (1.727 m) Wt 232 lb (105.2 kg) SpO2 98% ? No BMI 35.28 kg/m?? GENERAL APPEARANCE: not in any distress, appears comfortable. PSYCHIATRIC: alert and oriented x 4 (time, place, person and situation), normal affect, stable mood. HEENT: head atraumatic, normocephalic NECK: supple, no lymph node palpated LUNGS: clear breath sounds bilaterally, no rales, no wheezes HEART: Normal S1/S2 ABDOMEN: BS+, non-distended, non-tender, no organomegaly palpated, no rebound, no guardin : no CVA tenderness EXTREMITIES: no gross deformities, no edema, pulses present and equal bilaterally SKIN: Chronic skin changes, excoriations likely from scratching, IV site is clean w/o signs of infection NEURO: no tremors ASSESSMENT/PLAN: Active Hospital Problems Diagnosis ??? *Bilateral cellulitis of lower leg ??? Edema of both lower legs due to peripheral venous insufficiency ??? Falls, initial encounter ??? Severe obesity (BMI 35.0-39.9) with comorbidity (HCC) ??? Osteopenia of multiple sites ??? Intellectual disability ??? Schizoaffective disorder, depressive type (HCC) ??? Recurrent major depressive disorder, in partial remission (HCC) ??? Mood disorder (HCC) ??? Diabetes mellitus type 2 in obese (HCC) ??? Chronic diastolic heart failure (HCC) ??? ASHD (arteriosclerotic heart disease) ??? Hemiparesis affecting left side as late effect of stroke (HCC) ??? Essential hypertension Cellulitis lower extremities? Diagnosed on admission Continue IV antibiotics Falls Fall precautions and get physical therapy Chronic diastolic heart failure Compensated at the time of this encounter On aspirin Amlodipine Schizoaffective disorder Major depressive disorder Unspecified mood disorder per chart Zoloft Seroquel Trazodone Left-sided hemiparesis as a late effect of prior stroke Monitor closely Continue aspirin Lipitor Essential hypertension Amlodipine Continue to monitor blood pressure DM type 2, uncontrolled with complications Accuchecks ACHS Diabetic d iet ?? Insulin therapy We will review the treatment regimen on a daily basis and adjust as necessary See orders DVT prophylaxis Sherif Bartholomew MD10/02/2018 1:46 PM * Nighat Jules, PT - 10/02/2018 11:30 AM EDT 10/02/18 1109 PT Subjective Note Type Follow Up Treatment Attempt Patient Room/Unit 4611 PT Subjective Comments #1 On EOB, not agreeable to any attempts at intervention. Pt reports she is too weak today and is twitching. Pt states he knees buckled when transferring to [facility] earlier and [facility] pt required use of STEDY to return to bed. Offered assist for therex in legs to assist withweakness. Pt continued to decline Therapy delay reason Patient refused * Nighat Jules, PT - 10/01/2018 6:49 PM EDT 10/01/18 1718 PT Subjective Note Type Follow Up Treatment Attempt Patient Room/Unit 4611 PT Subjective Comments #1 Sleeping soundly. Does not awaken to name. Will follow up later or next date as able. Therapy delay reason Unable to arouse/awaken patient * Mike Dunaway - 10/01/2018 3:33 PM EDT 10/01/18 1500 Pastoral Care Encounter Visited With Patient Date of visit 10/01/18 Visit Type Follow-up Need to follow-up? Yes Referral From Nurse Referral To Exploration Engineer Pastoral Care Plan/Intervention Plan/Intervention [facility];Prayer pt sought a privileged consult w 10/01/2018 Mike Dunaway * Tabitha Paz MD - 10/01/2018 10:45 AM EDT Images from the original note were not included. PROGRESS NOTE Subjective: HPI: overnight course and nurses??? notes reviewed. Laying in bed resting, didn't wake when spoken to or touched, except when her legs were touched when rebuked this marketing copywriter and went back to sleep. Noother issues or complains. Objective: BP 137/68 (BP Location: Left arm, Patient Position: Semi Fowlers) Pulse 60 Temp 97.3 ??F (36.3 ??C) (Oral) Resp 16 Ht 5' 8 (1.727 m) Wt 232 lb (105.2 kg) SpO2 95% ? No BMI 35.28 kg/m?? I/O last 3 completed shifts: In: 1795.7 [P.O.:1320; I.V.:21.9; IV Piggyback:453.8] Out: 276 [Urine:275; Stool:1] Weight: 232 lb (105.2 kg) Resting Breathing easy S1+S2+0 Both anterior legs alley tender with venous static changes and some blistering. Results: ECG: Results for orders placed during the hospital encounter of 08/12/18 EK EKG [address] [facility] Test Date: 2018-08-12 Pat Name: FABY PALM Department: DEPID Room: E2409 Gender: Female Parachute Panel Joiner: [facility] : 1950 Requested By: RAUL Saleem Order Number: [id number] Reading MD: Kamari Goss MD Measurements Intervals [place] Rate: 46 P: [place]: 164 QRS: QRSD: 97 T: 62 QT: 489 QTc: 429 Interpretive Statements SINUS BRADYCARDIA LOW QRS VOLTAGE IN PRECORDIAL LEADS INFERIOR MYOCARDIAL INFARCTION, OF INDETERMINATE AGE ANTEROSEPTAL MYOCARDIAL INFARCTION, PROBABLY OLD NO CHANGE Electronically Signed On 08-12-2018 12:52:00 EDT by Kamari Goss MD Labs: Lab Results Component Value Date WBC 6.5 09/29/2018 HGB 12.1 09/29/2018 HCT 36.4 09/29/2018 MCV 91.8 09/29/2018 PLT 168 09/29/2018 Lab Results Component Value Date NA 141 09/29/2018 K 4.6 09/29/2018 CL 105 09/29/2018 CO2 30 (H) 09/29/2018 BUN 22 09/29/2018 CREATININE 1.30 09/29/2018 CALCIUM 10.3 09/29/2018 GFRAFRAM 49 (L) 09/29/2018 GFRNONAFRAM 43 (L) 09/29/2018 GLU 83 09/29/2018 Lab Results Component Value Date ALKPHOS 145 (H) 09/29/2018 ALT 10 09/29/2018 AST 10 09/29/2018 PROT 7.7 09/29/2018 LABBILI 0.6 09/29/2018 No results found for: AMYLASE, LIPASE No results found for: CKMB, MYOGLOBIN No results found for: INR, APTT No results found for: SPECGRAV, UAPROTEIN, BLOODU, NITRITE, LEUKOCYTESUR, WBCUA, RBCUA No results found for: PH, PCO2, PO2, HCO3, TCO2, BASEEXCESS, O2SAT, INSPIREDO2, SPECIMENTYPE Radiology Results: No results found. Assessment/Plan: Active Hospital Problems Diagnosis ??? Bilateral cellulitis of lower leg ??? Edema of both lower legs due to peripheral venous insufficiency ??? Falls, initial encounter ??? Severe obesity (BMI 35.0-39.9) with comorbidity ([facility]) --BMI 36.34 with diabetes in problem list ??? Osteopenia of multiple sites ??? Intellectual disability ??? Schizoaffective disorder, depressive type ([facility]) ??? Recurrent major depressive disorder, in partial remission ([facility]) ??? Mood disorder ([facility]) ??? Diabetes mellitus type 2 in obese ([facility]) Lab Results Component Value Date HGBA1C 6.6 (H) 04/19/2018 HGBA1C 6.6 08/09/2017 HGBA1C 6.8 05/02/2017 Metformin stopped due to acute renal injury. Previously on lantus 36u, had hypoglycemia so decreased to 20u/nightly. Will continue same to allow for renal recovery and follow-up 2 weeks ??? Chronic diastolic heart failure ([facility]) ??? ASHD (arteriosclerotic heart disease) July 2017 ? Ost RCA lesion 60% [...] takeoff. Ostial RCA 20%, no dampening noted. ??? Hemiparesis affecting left side as late effect of stroke ([facility]) ??? Essential hypertension Resolved Hospital Problems No resolved problems to display. continue antibiotic at this time for the cellulitis No more falls at this time BP medically managed No new strokes at this time Heart failure stable with medicines at this time Unfortunately she cant go back to the personal prison and now has to wait to be accepted to a detention Stay today. Continue the rest of the regimen. See orders for details. To be discharged when accepted by a facility Tabitha Paz MD 10/01/2018 10:45 AM * Jennifer Naqvi RN - 09/30/2018 5:15 PM EDT 3:43pm- Dr. Paz notified to address insulin. Will continue to assess and monitor. 5:14pm- No new orders for sliding scale insulin at this time. Fingerstick blood sugar was 177. Message sent to Dr. Paz to address sliding scale insulin. Will continue to assess and monitor. * Jemima Manrique MSW - 09/30/2018 3:59 PM EDT 09/30/18 1553 Assessment Complete Actual Discharge Plan 09/30/18: SW attempted to meet with patient with no success. Chart reviewed and screen completed in ED. patient had been living at [facility]. Patient had a PCP and was able to afford medications. Patient is [facility] eligible for transportation. Per chart review, [facility] is not able to return to facility. LISA called and spoke with Nii ([phone]), manager development of [facility]. He confirmed that they had been working to find placement in [place] (per patient's request), as patient needs more care that [facility] is able to provider. Per Nii, this is due to patient being a fall risk and increased hospital admissions. Nii stated that they have been working with APS regarding patient and they suggested she be brought [facility] for placemet. Unsure at this time if patient has POA or guardian. Per attending MD, patient has capacity to make decisions. LISA will proactively send mass referral for placement in [facility]. SW to follow. Discharge Parameters Placement Assign Video Yes Completed by CC/SW Yes IP Mental Health Referral Pending No Discharge to Assisted Living Is patient in a Bundle Payment initiative? N/A Psychosocial Assessment Referral Source [facility] Referral Reason Discharge Planning Received Denial from Insurance No Assessed Medical Record review, patient/family unavailable Mental Status Unable to assess Does patient need health safety instructor? No Mini-mental exam completed? No Decision Maker Him/Herself Activities of Daily Living Needs Assistance Living Arrangements Long Term/Assisted Living Where did the patient come from? [facility] ([facility] prison) Support Systems Spouse/Significant Other;Family Members Quality of Support System Adequate Identified Needs and Options Personal Care;Assisted Living Anticipated post-acute care needs Nursing Facility * Yasmine Schmitt, PT - 09/30/2018 3:46 PM EDT 09/30/18 1200 PT Subjective Note Type Evaluation Patient Room/Unit 4611 PT Subjective Comments #1 Pt agreed to work with therapy. Legs still itch. Pt wants to discharge from hospital today: says she has 2 appointments today. Pt reports they have been trying to find a detention for her near [place] but have not been able to do so. Discharge Information Evaluation to serve as discharge summary if no further treatment provided before the facility discharge Admitting Diagnosis cellulitis of LE Past Med Hx Pt was admitted via ED 09/29/2018 from [facility] due to kieran LE swelling and redness. H/oitchy blisters x 2 weeks. PMHx: has a past medical history of Atrial flutter ([facility]), CHF (congestiveheart failure) ([facility]), COPD (chronic obstructive pulmonary disease) ([facility]), DDD (degenerative disc disease), Diabetes mellitus ([facility]), Gastrointestinal hemorrhage associated with gastroduodenitis (04/01/2015), Hypertension, Intellectual disability (05/03/2017), NJ (myocardial infarction) ([facility]), RLS (restless legs syndrome), Schizoaffective disorder, depressive type ([facility]) (02/19/2017), Stroke ([facility]) (2009), Suicide attempt ([facility]), Urinary incontinence, and Yeast infection. has a past surgical history that includes Tonsillectomy; orthopedic surgery; joint replacement; Ankle surgery; Upper gastrointestinal endoscopy (N/A, 04/03/2015); ablation of dysrhythmic focus (12/31/2015); Breast surgery; Lung surgery; and knee surgery (Left, 12/06/2008). Pain Screening PT/OT Patient Currently in Pain No Additional Comments denies pain but reports kieran LEs itch. Cognition Orientation Intact Arousal Normal Safety Awareness Normal Affect/Ability to cope Normal Command Following Normal Memory Intact Communication Intact Precautions Therapy Precautions Yes Precaution info given Yes;To use call light to request assistance with all mobility Home Living/Prior Function Type of Home Assisted Living Home Layout Able to Live on Main level with bedroom/bathroom Number of Steps 0 Additional Comments Resides at [facility] (detention). Home Equipment 4 wheel walker Level of Assistance Needs assistance with homemaking;Independent with functional transfers;Ambulatory in home Lives With Personal Care Additional Comments Pt reports she has assistance to shower but dresses herself. She has assistancefor meals and housekeeping. Per medical record, pt is needing more assistance than current facilitycan provide and attempts have been made to secure NHP for pt. Observation Presentation Patient resting in bed Posture 5'8 , 232 lbs per medical record Observation IV;Bed Alarm;Chair Alarm Vitals VSS room air UE Assessment LUE Assessment WFL RUE Assessment WFL LE Assessment LLE Assessment WFL RLE Assessment WFL Bed Mobility Rolling Independent Supine to Sit Supervision;Head of bed flat Additional Comments Pt independently donned kieran nonskid socks while seated in bed. Transfers Sit to Stand Contact guard assist;Stand by assist Stand to Sit Contact guard assist;Stand by assist Stand Pivot Transfers Contact guard assist;Stand by assist Additional Comments with 4wheeled walker. Toilet transfer with SBA. Pt stood at sink to wash/dry hands with SBA. Gait Gait Contact guard assist;Stand by assist Gait Distance (Feet) 150 Feet Assistive Device 4 Wheel walker Pattern Slow chhaya Weight Bearing Status Weight bearing as tolerated AM PAC: How much help from another person does the patient currently need... turning from your back to your side while in a flat bed without using bedrails? 4 moving from lying on your back to sitting on the side of a flat bed without using bedrails? 3 moving to and from a bed to a chair? 3 standing up from a chair using your arms (e.g. wheelchair, or bedside chair)? 3 need to walk in hospital room? 3 climbing 3-5 steps with a railing? 3 AM PAC: BASIC MOBILITY SCORING AM PAC Moblity Raw Score 19 AM PAC Mobility CMS 0-100% Functional Percentage 36.99 AM PAC Mobility CMS G Code Modifier CJ Balance Sitting Balance 4+/5 moves/returns trunkal midpoint 1-2 inches in multiple planes Standing Balance 2+/5 indep, requires 1 UE support Exercise Exercise No Education Education To use call light to request assistance with all mobility;Patient/Family Education;Role of Therapy;Safety with mobility;Cues for proper technique;Discharge planning;Up with assistance only;Precautions;Safe and proper posture/positioning;Safe and proper technique with transfers;Safe and pro per technique with gait pattern;Energy conservation Patient Safety Patient Safety Patient left in chair with needs in reach;Chair/personal alarm activated Assessment Assessment Decreased gait;Decreased functional mobility;Decreased balance;Decreased activity tolerance ;Decreased endurance Prognosis Good Progress Improving as expected Rationale for Skilled Therapy Not safe ambulating independently;Not safe with independent transfers Goals Patient and/or Family Goal return to her detention/personal care unit PT GOALS (Yes/No) Yes Add Goals Pt Will Go Supine To Sit Independently Pt will perform Sit to Stand Independently Pt Will Ambulate With 4 wheel walker;151-200 feet;Supervision Goal Formulation With patient Time for Goal Achievement/Duration of Treatment 5 treatment days Plan Treatment/Interventions Gait training;Bed mobility;Neuromuscular re- education;Balance training;Functional transfer training;UE strengthening/ROM;LE strengthening/ROM;Increase activity tolerance ;Cognitive reorientation;Patient/Family training;Equipment eval/education;Compensatory technique education PT Frequency 3-5x/week Recommendation PT Recommendation 24 hour supervision/assist;Home PT Additional PT discharge information Home PT if needed. If pt is not able to return to her prior living situation, then SNF/LTC. Time In / Time Out 1140/1200 IP PT Evaluation Minutes 10 IP PT Treatment Minutes 10 gait * Mike Dunaway - 09/30/2018 2:38 PM EDT 09/30/18 1400 Pastoral Care Encounter Visited With Patient Date of visit 07/26/19 Visit Type Follow-up Need to follow-up? Yes Oriental Orthodox Needs Prayer Sacramental Needs Has Patient Received SOS? Yes Date of Sacrament of the Sick (Anointing) 09/30/18 Pastoral Care Plan/Intervention Plan/Intervention Sacraments;Prayer 09/30/2018 Mike Dunaway * Tabitha Paz MD - 09/30/2018 7:49 AM EDT Images from the original note were not included. PROGRESS NOTE Subjective: HPI: overnight course and nurses??? notes reviewed. Walking with PT earlier in the morning with contact guard assist. Doing OK, still has some swelling and tenderness in the legs but better than yesterday. No other issues or complains. Objective: BP 156/73 (BP Location: Right arm) Pulse 65 Temp 98.2 ??F (36.8 ??C) (Oral) Resp 18 Ht 5' 8 (1.727 m) Wt 232 lb (105.2 kg) SpO2 95% ? No BMI 35.28 kg/m?? I/O last 3 completed shifts: In: 729.8 [P.O.:360; I.V.:107.1; IV Piggyback:262.7] Out: - Weight: 232 lb (105.2 kg) General appearance: NAD Awake, morbidly obese HEENT: PERRLA EOMI, mucosae moist, neck supple Cardiovascular: RRR. S1+S2+0 Lungs: No rales or rhonchi Abdomen: positive bowel sounds, soft, non-tender Extremities: moderate edema. Pulses 1+. Redness in the legs Neuro: no focal neurological deficits Skin: redness in the lower legs with some blisters most of which are intact Psychiatric: anxious about making it to her appointments today. Results: ECG: Results for orders placed during the hospital encounter of 08/12/18 EK EKG 12 LEAD Impression [facility] Test Date: 2018-08-12 Pat Name: FABY PALM Department: DEPID Room: E2409 Gender: Female Parachute Panel Joiner: [facility] : 1950 Requested By: RAUL Saleem Order Number: [id number] Reading MD: Kamari Goss MD Measurements Intervals [place] Rate: 46 P: [place]: 164 QRS: QRSD: 97 T: 62 QT: 489 QTc: 429 Interpretive Statements SINUS BRADYCARDIA LOW QRS VOLTAGE IN PRECORDIAL LEADS INFERIOR MYOCARDIAL INFARCTION, OF INDETERMINATE AGE ANTEROSEPTAL MYOCARDIAL INFARCTION, PROBABLY OLD NO CHANGE Electronically Signed On 08-12-2018 12:52:00 EDT by Kamari Goss MD Labs: Lab Results Component Value Date WBC 6.5 09/29/2018 HGB 12.1 09/29/2018 HCT 36.4 09/29/2018 MCV 91.8 09/29/2018 PLT 168 09/29/2018 Lab Results Component Value Date NA 141 09/29/2018 K 4.6 09/29/2018 CL 105 09/29/2018 CO2 30 (H) 09/29/2018 BUN 22 09/29/2018 CREATININE 1.30 09/29/2018 CALCIUM 10.3 09/29/2018 GFRAFRAM 49 (L) 09/29/2018 GFRNONAFRAM 43 (L) 09/29/2018 GLU 83 09/29/2018 Lab Results Component Value Date ALKPHOS 145 (H) 09/29/2018 ALT 10 09/29/2018 AST 10 09/29/2018 PROT 7.7 09/29/2018 LABBILI 0.6 09/29/2018 No results found for: AMYLASE, LIPASE No results found for: CKMB, MYOGLOBIN No results found for: INR, APTT No results found for: SPECGRAV, UAPROTEIN, BLOODU, NITRITE, LEUKOCYTESUR, WBCUA, RBCUA No results found for: PH, PCO2, PO2, HCO3, TCO2, BASEEXCESS, O2SAT, INSPIREDO2, SPECIMENTYPE Radiology Results: No results found. Assessment/Plan: Active Hospital Problems Diagnosis ??? Bilateral cellulitis of lower leg ??? Edema of both lower legs due to peripheral venous insufficiency ??? Falls, initial encounter ??? Severe obesity (BMI 35.0-39.9) with comorbidity ([facility]) --BMI 36.34 with diabetes in problem list ??? Osteopenia of multiple sites ??? Intellectual disability ??? Schizoaffective disorder, depressive type ([facility]) ??? Recurrent major depressive disorder, in partial remission ([facility]) ??? Mood disorder (HCC) ??? Diabetes mellitus type 2 in obese (HCC) Lab Results Component Value Date HGBA1C 6.6 (H) 04/19/2018 HGBA1C 6.6 08/09/2017 HGBA1C 6.8 05/02/2017 Metformin stopped due to acute renal injury. Previously on lantus 36u, had hypoglycemia so decreased to 20u/nightly. Will continue same to allow for renal recovery and follow-up 2 weeks ??? Chronic diastolic heart failure (HCC) ??? ASHD (arteriosclerotic heart disease) July 2017 ? Ost RCA lesion 60% [...] takeoff. Ostial RCA 20%, no dampening noted. ??? Hemiparesis affecting left side as late effect of stroke ([facility]) ??? Essential hypertension Resolved Hospital Problems No resolved problems to display. continue IV doxycycline from this morning. While this marketing copywriter could switch it to PO doxycycline, [facility] personal care facility where she lives would not accept her back though she was adamant that she can go back till she finds a detention in the [place] to [place] since she feels she hasnt deteriorated enough but they are saying to the social service liaison that she cant come back. Difficult situation to be in. Didn't order discharge since if the personal prison doesn't take her, she would become homeless! No new strokes at this time No more falls since being in the hospital Heart failure stable Mood fluctuant especially after being told that she cant ho back today Stay today. Continue the rest of the regimen. See orders for details. To be discharged when a safe and clear plan is established for her Tabitha Paz MD 09/30/2018 7:49 AM * Stefani Haro RN - 09/29/2018 4:07 PM EDT 09/29/18 1605 ED Screening ED Screening Completed Initial screening complete, post-acute needs identified, assessment to follow Medical Record Reviewed Yes Who you interviewed Medical Record review, patient/family unavailable What brought the patient to the ED blistets on legs Where did the patient come from? [facility] ([facility]) Issues related to prior living situation uses a walker Activities of Daily Living Needs Assistance Mental Status Unable to assess Identified psychosocial/financial issues Assist with discharge arrangement for patients transferring to SNF's Issues with non-compliance No Anticipated post-acute care needs Nursing Facility Additional comments regarding post acute care needs pt is unable to return to [facility] shehas become more than they can care for Potential barriers to discharge No Does patient meet high risk triggers? Exacerbation of chronic illness documented in this encounter H&P Notes * Tabitha Paz MD - 09/29/2018 3:10 PM EDT [facility] History and Physical Name: Faby Palm : 1950 AGE: 68 y.o. Referring Physician: Sharee Segovia ARNP Date of Admit: 09/29/2018 SUBJECTIVE Chief Complaint: bilateral lower leg cellulitis History of Present Illness: Ms. Palm was admitted to the hospital with bilateral lower leg cellulitis but she can not adequately care for herself in her current condition or with the cellulitis hence she might need placement while her infection is healing. She has redness, tenderness, swelling and warmth in the areas. No other complains or issues. Chart reviewed. Past Medical History: Diagnosis Date ??? Atrial flutter (HCC) EPS, AFL Ablation on 12/31/[address] Tee ??? CHF (congestive heart failure) (HCC) ??? COPD (chronic obstructive pulmonary disease) (HCC) ??? DDD (degenerative disc disease) ??? Diabetes mellitus (HCC) ??? Gastrointestinal hemorrhage associated with gastroduodenitis 04/01/2015 ??? Hypertension ??? Intellectual disability 05/03/2017 ??? NJ (myocardial infarction) (HCC) ??? RLS (restless legs [...] 04/03/2015 ESOPHAGOGASTRODUODENOSCOPY WITH BIOPSY AND BRUSHING; Surgeon: Chrissy Brown MD; Location: [facility]; Service: Endoscopy Medications Prior to Admission Medication Sig Dispense Refill Last Dose ??? acetaminophen 325 mg Oral Tab Take 650 mg by mouth every 4 hours as needed for Pain. Pt takes 1to 2 tabs as needed Taking at Unknown time ??? albuterol (PROVENTIL HFA; VENTOLIN HFA) 90 mcg/actuation Inhl HFA Aerosol Inhaler Inhale 2 Puffs into the lungs 0800, 1200, 1600, 2000. Taking at Unknown time ??? amLODIPine (NORVASC) 5 mg Oral Tablet Take 1 Tab by mouth daily. 30 Tab 0 09/29/2018 at Unknown time ??? ARIPiprazole (ABILIFY) 30 mg Oral Tablet Take 1 Tab by mouth daily. 30 Tab 0 09/29/2018 at Unknown time ??? aspirin (ASPIRIN) 81 mg Oral Tablet, Chewable Take 1 Tab by mouth daily. 30 Tab 11 09/29/2018 atUnknown time ??? atorvastatin (LIPITOR) 20 mg Oral Tablet TAKE ONE TABLET BY MOUTH NIGHTLY 30 Tab 1 09/28/2018 atUnknown time ??? busPIRone (BUSPAR) 5 mg Oral Tablet Take 5 mg by mouth 2 times daily. 09/29/2018 at Unknown time ??? Calcium Carbonate-Vitamin D3 (CALCIUM 600 + D,3,) 600 mg calcium- 200 unit Oral Capsule Take 1 Tab by mouth every 12 hours. 09/29/2018 at Unknown time ??? clopidogrel (PLAVIX) 75 mg Oral Tablet Take 75 mg by mouth daily. 09/29/2018 at Unknown time ??? ferrous sulfate 325 mg (65 mg iron) Oral Tablet Take 1 Tab by mouth 2 times daily (with meals).60 Tab 5 09/29/2018 at Unknown time ??? gabapentin (NEURONTIN) 100 mg Oral Capsule Take 200 mg by mouth 4 times daily. 09/29/2018 at Unknown time ??? glipiZIDE (GLUCOTROL) 10 mg Oral Tablet Take 10 mg by mouth 2 times daily. 09/29/2018 at Unknowntime ??? icosapent ethyl (VASCEPA) 1 gram Oral Capsule Take 1 g by mouth 2 times daily. 09/29/2018 at Unknown time ??? Insulin glargine (BASAGLAR KWIKPEN U-100 INSULIN) 100 unit/mL (3 mL) SubQ Insulin Pen Subcutaneous (Inject under the skin) 35 Units every evening. 3 mL 6 09/28/2018 at Unknown time ??? isosorbide mononitrate (IMDUR) 60 mg Oral Tablet Sustained Release 24 hr Take 120 mg by mouth daily. 09/29/2018 at Unknown time ??? lamoTRIgine (LAMICTAL) 100 mg Oral Tablet Take 50 mg by mouth daily forging die sinker. And Takes 100 mg at night 09/29/2018 at Unknown time ??? Melatonin 3 mg Oral Tablet Take 5 mg by mouth nightly. 09/28/2018 at Unknown time ??? metFORMIN XR (GLUCOPHAGE-XR) 500 mg Oral Tablet Sustained Release 24 hr Take 500 mg by mouth daily (with breakfast). 09/29/2018 at Unknown time ??? nitroGLYCERIN (NITROSTAT) 0.4 mg SL Tablet, Sublingual Place under the tongue every 5 minutes as needed for Chest pain. Taking at Unknown time ??? oxybutynin (DITROPAN-XL) 10 mg Oral Tablet Extended Rel 24 hr TAKE ONE TABLET BY MOUTH ONCE DAILY 30 Tab 2 09/29/2018 at Unknown time ??? pantoprazole (PROTONIX) 40 mg Oral Tablet, Delayed Release (E.C.) Take 1 Tab by mouth daily. 30Tab 2 09/29/2018 at Unknown time ??? QUEtiapine (SEROQUEL) 50 mg Oral Tablet Take 100 mg by mouth nightly. 09/28/2018 at Unknown time ??? RANEXA 1,000 mg Oral Tablet Sustained Release 12 hr TAKE ONE TABLET BY MOUTH EVERY 12 HOURS 60 Tab 0 09/29/2018 at Unknown time ??? Saccharomyces boulardii (FLORASTOR) 250 mg Oral Capsule Take 250 mg by mouth 2 times daily. 09/29/2018 at Unknown time ??? sertraline (ZOLOFT) 100 mg Oral Tablet Take 200 mg by mouth daily. Reported on 08/12/2016 09/29/2018 at Unknown time ??? sucralfate (CARAFATE) 100 mg/mL Oral Suspension Take 1 g by mouth 4 times daily (before meals and nightly). 09/29/2018 at Unknown time ??? traZODone (DESYREL) 50 mg Oral Tablet Take 3 Tabs by mouth nightly. 90 Tab 2 09/28/2018 at Unknown time ??? loperamide (IMODIUM) 2 mg Oral Capsule Take 2 mg by mouth 2 times daily. Not Taking at Unknown time Allergies: Allergies Allergen Reactions ??? Compazine [Prochlorperazine Edisylate] ??? Shoshoni ??? Pentazocine Hcl ??? Prochlorperazine Maleate ??? Talwin [Pentazocine Lactate] Social History: Smoking:never Alcohol:none Drugs:none Family History Problem Relation Age of Onset ??? Cancer Mother larnyx cancer ??? Colon Cancer Mother ??? Heart Disease Sister ??? Heart Disease Brother ??? No Known Problems Son ??? Seizures Daughter Review of Systems: The listed systems were reviewed and reveal the following in addition to any already discussed in the HPI: ?? Constitutional: malaise and fatigue ?? Eyes: no changes in acuity, double vision or dry eyes ?? HENT: no hoarseness, no sore throat, no mouth sores, no congestion, no epistaxis ?? Lungs: no additional concerns noted ?? Cardiovascular: no additional concerns noted ?? Endocrine: no additional concerns noted ?? GI: no additional concerns noted ?? : no additional concerns noted ?? Musculoskeletal: gait disturbance, muscle aches and muscle weakness ?? Neurologic: no additional concerns noted ?? Skin: blistering and redness on both legs. ?? Psychiatric: anxiety/excessive worrying and feeling depressed ?? Hematologic/Allergic: no additional concerns noted OBJECTIVE Physical Exam: Patient Vitals for the past 24 hrs: BP Temp Temp src Pulse Resp SpO2 09/29/18 1427 112/81 -- -- 51 16 99 % 09/29/18 1229 144/65 97.5 ??F (36.4 ??C) Oral 50 16 99 % Body mass index is 35.28 kg/m??. Body surface area is 2.18 meters squared. ?? General: Faby appears active and obese ?? Skin: bilateral anterolateral redness swelling, tenderness and warmth with some blisters on bothlegs ?? Head: Normocephalic, without obvious abnormality, atraumatic ?? Eyes: Pupils equal, round and reactive to light and Extraocular movements intact ?? ENT: ENT exam normal, mucous membranes moist ?? Neck: neck is supple and there is full active range of motion ?? Breast: not examined ?? Lungs: clear to auscultation bilaterally ?? Cardiac: heart tones normal S1, S2 regular rate and rhythm ?? Abdomen: abdomen is soft, nontender, and nondistended without hepatosplenomegaly or masses, normoactive bowel sounds are present, there are no peritoneal signs ?? Back: negative ?? : not examined ?? Lymphadenopathy: normal and no adenopathy noted ?? Musculoskeletal/Ext: tenderness at both legs, Edema: None ?? Neurological: normal without focal findings Labs: CBC: Recent Labs 09/29/18 1307 WBC 6.5 RBC 3.97 HGB 12.1 HCT 36.4 MCV 91.8 MCH 30.4 RDW 14.7 PLT 168 MPV 9.4 Renal: Recent Labs 09/29/18 1307 NA 141 K 4.6 CL 105 CO2 30* BUN 22 CREATININE 1.30 CALCIUM 10.3 GFRAFRAM 49* GFRNONAFRAM 43* GLU 83 ALT 10 AST 10 ALKPHOS 145* Lab Results Component Value Date TROPT <0.01 09/21/2017 U/A: Radiology: No results found. Assessment/Plan: Active Hospital Problems Diagnosis ??? *Bilateral cellulitis of lower leg ??? Edema of both lower legs due to peripheral venous insufficiency ??? Falls, initial encounter ??? Severe obesity (BMI 35.0-39.9) with comorbidity (HCC) ??? Osteopenia of multiple sites ??? Intellectual disability ??? Schizoaffective disorder, depressive type (HCC) ??? Recurrent major depressive disorder, in partial remission (HCC) ??? Mood disorder (HCC) ??? Diabetes mellitus type 2 in obese (HCC) ??? Chronic diastolic heart failure (HCC) ??? ASHD (arteriosclerotic heart disease) ??? Hemiparesis affecting left side as late effect of stroke (HCC) ??? Essential hypertension bilateral lower leg cellulitis: needs IV antibiotic, started on clindamycin by the ED, will switch it to doxycycline tomorrow. If she goes out of the hospital, a BID regimen would be easier to followthan TID or QID. Leg edema due to chronic venous congestion: secondary to heart failure and chronic venous congestion. Makes it easier for her to get skin infections which need local skin care and antibiotic Falls: [facility]. No significant injuries or fractures or dislocations Obesity: complicates all aspects of care Osteopenia: may continue calcium and vitamin D supplementation if needed schizoaffective disorder: makes a little suspicious at time in unfamiliar locations or situations Anxiety and depression with mood disorder: continue existing regimen. Easily get scared from new situations Intellectual disability: affects and hinders her ability to comprehend the ongoing life changes that she is facing since the personal prison wants to send her to a nursing facility since they feelthat she can not get adequate care at their place. She wants to go back to [place] and was thinking that they would wait till a facility in [place] can accept her. Diabetes: use correctional scale insulin, diet and FSBS Chronic diastolic heart failure: continue gentle diuresis while here. Doesn't appear to be in majorvolume overload at this time but the leg edema predisposes to skin infection easily. CAD: no acute coronary ischemia. Continue existing regimen. Prior stroke: no new strokes or new deficits. However, she has had falls recently which might be one of the reasons the personal prison doesn't want her to come back and be placed in a detention HTN: continue home medicines, adjust if needed Prophylaxis: see orders Stay today. See orders for details. Tabitha Paz MD 09/29/2018 3:10 PM documented in this encounter Consult Notes * Jose Eduardo Green MD - 10/06/2018 4:27 PM EDTAssociated Order(s): IP CONSULT TO PSYCHIATRY Full consult dictated: [id number] Transfer to [facility] when medically cleared. * Jose Eduardo Green MD - 10/06/2018 4:26 PM EDT DATE OF CONSULTATION: 10/06/2018 PSYCHIATRIC CONSULTATION DATE OF ADMISSION: 09/29/2018 REASON FOR CONSULTATION: Suicidal ideations. HISTORY OF PRESENT ILLNESS: This is a 68-year-old white female who resides at [facility] in [place]. She has a history of chronic anxiety and depression. She states that she hasbeen at the [facility] for the past 5 years. She has been increasingly depressed as of late because of pending eviction. Claims that the tire fabric impregnating range tender of the facility told her that they cannot handle her medical needs any longer. Reportedly, she has frequently been falling and medically hospitalized. He tells me I can't take care of myself. She said she has already paid rent for next month. She has had increased depression in the past month with suicidal ideations about drinking Drano or dressing herself in dark clothes and sitting on nearby train tracks. She said she feels like nobody cares about her anymore and that she just wants to . She ended up getting medically admitted with lower extremity cellulitis. She has reportedly been medically cleared for transfer to [facility]. PAST PSYCHIATRIC HISTORY: She sees Ela Snow at the [facility] office. She claims she has been compliant with her medications and outpatient visits. She has seen Dr. Gavin a couple of times on an inpatient basis on Behavioral Health in 2017 and 2018. She has had borderline personality behavior and carries a diagnosis of schizoaffective disorder. She has been on multiple different prior psych medications, including Abilify, Zoloft, Wellbutrin, Risperdal, trazodone, Effexor, multiple others. She has been hospitalized in [place] psychiatrically a couple of times. History of intellectual disability. SOCIAL HISTORY: She has been residing at [facility] for the past 5 years, suspected of being in special ED classes, several times. Two children, 2 siblings. No tobacco. Denies history of substance dependence. Past Medical History: Diagnosis Date ??? Atrial flutter (HCC) EPS, AFL Ablation on 12/31/[address] Tee ??? CHF (congestive heart failure) (HCC) ??? COPD (chronic obstructive pulmonary disease) (HCC) ??? DDD (degenerative disc disease) ??? Diabetes mellitus (HCC) ??? Gastrointestinal hemorrhage associated with gastroduodenitis 04/01/2015 ??? Hypertension ??? Intellectual disability 05/03/2017 ??? NJ (myocardial infarction) (HCC) ??? RLS (restless legs [...] 04/03/2015 ESOPHAGOGASTRODUODENOSCOPY WITH BIOPSY AND BRUSHING; Surgeon: Chrissy Brown MD; Location: [facility]; Service: Endoscopy Family History Problem Relation Age of Onset ??? Cancer Mother larnyx cancer ??? Colon Cancer Mother ??? Heart Disease Sister ??? Heart Disease Brother ??? No Known Problems Son ??? Seizures Daughter No current facility-administered medications on file prior to encounter. Current Outpatient Medications on File Prior to Encounter Medication Sig Dispense Refill ??? albuterol (PROVENTIL HFA; VENTOLIN HFA) 90 [...] Tablet Take 50 mg by mouth daily forging die sinker. And Takes 100 mg at night ??? metFORMIN XR (GLUCOPHAGE-XR) 500 mg Oral [...] EVERY 12 HOURS 60 Tab 0 ??? Saccharomyces boulardii (FLORASTOR) 250 mg Oral Capsule Take 250 mg by mouth 2 times daily. ??? sertraline (ZOLOFT) 100 mg Oral Tablet Take 200 mg by mouth daily. Reported on 08/12/2016 ??? sucralfate (CARAFATE) 100 mg/mL Oral Suspension Take 1 g by mouth 4 times daily (before meals and nightly). FAMILY PSYCHIATRIC HISTORY: Denied. MENTAL STATUS EXAMINATION: She is seen in [facility]. She is irritable, depressed morbidly obese. Insight and judgment poor. Attention and concentration is decreased. She continues to voice suicidal ideations with plans. She denies homicidal ideations. Episodic auditory hallucinations, some suspected delusions. She offered little in conversation. Mood is sad. Affect is flat. DIAGNOSTIC STATUS: AXIS I: Schizoaffective disorder, depressed. AXIS II: 1. Borderline mental functioning. 2. Borderline personality. AXIS III: See past medical/surgical history. TREATMENT RECOMMENDATIONS: The majority of her issues are suspected to be [place] II/situational. She continues to voice thoughts or plans of harming herself. Doubtful that her medical needs can be addressed at the [facility], and she was advised that she should actually have a higher level of care. I recommend that she be transferred to Geropsych Unit at [facility]. Reviewed in full by Iban, 10/06/2018 Jose Eduardo Green M.D. By: Michel Job ID: [id number] Doc ID: [id number] documented in this encounter ED Notes * Marisol Torre RN - 09/29/2018 2:38 PM EDT [facility]. States has been trying to get placement for her for past 2 months. Has called over 40 facilities and APS and does not want to accept patientback. Care Coordination Gladys alarcon. * Elizabeth Bhatia PA-C - 09/29/2018 12:28 PM EDT Chief Complaint Patient presents with ??? Cellulitis pt arrives per EMS from [facility]. pt has bilat lower leg swelling and redness Patient is a 68-year-old female presents to emergency department complaining of bilateral lower extremity burning and swelling. She states that 2 weeks ago she started having blisters to the lower extremities that was very itchy and she was scratching at these over the past 2 weeks. Then about a day and a half ago it started to burn and she rates his pain as a 9 out of 10. She does admit to some drainage that looked puslike out of some of the blisters. She denies any history of skin infections but states she is a diabetic. She currently lives in [facility] that [facility] but does take her to doctors at a clinic who regulates her insulin. She states that the facility has been using hand lotion to try to relieve the areas of the itching. She did try Tylenol yes terday with some relief but none today. She denies any fever, nausea, vomiting, chills. Patient History Allergies Allergen Reactions ??? Compazine [Prochlorperazine Edisylate] ??? Shoshoni ??? Pentazocine Hcl ??? Prochlorperazine Maleate ??? Talwin [Pentazocine Lactate] Home Medications: Prior to Admission medications Medication Sig Start Date End Date Taking? Authorizing Provider acetaminophen 325 mg Oral Tab Take 650 mg by mouth every 4 hours as needed for Pain. Pt takes 1 to 2 tabs as needed Provider, Historical albuterol (PROVENTIL HFA; VENTOLIN HFA) 90 mcg/actuation Inhl HFA Aerosol Inhaler Inhale 2 Puffs into the lungs 0800, 1200, 1600, 1999. Provider, Historical amLODIPine (NORVASC) 5 mg Oral Tablet Take 1 Tab by mouth daily. 08/14/18 Mayo Robbins MD ARIPiprazole (ABILIFY) 30 mg Oral Tablet Take 1 Tab by mouth daily. 02/23/17 Eric Gavin MD aspirin (ASPIRIN) 81 mg Oral Tablet, Chewable Take 1 Tab by mouth daily. 09/21/17 Ernie Pizano MD atorvastatin (LIPITOR) 20 mg Oral Tablet TAKE ONE TABLET BY MOUTH NIGHTLY 03/24/17 Joanna Pierce MD busPIRone (BUSPAR) 5 mg Oral Tablet Take 5 mg by mouth 2 times daily. Provider, Historical Calcium Carbonate-Vitamin D3 (CALCIUM 600 + D,3,) 600 mg calcium- 200 unit Oral Capsule Take 1 Tab by mouth every 12 hours. 09/07/18 Sharee Segovia ARNP clopidogrel (PLAVIX) 75 mg Oral Tablet Take 75 mg by mouth daily. Provider, Historical ferrous sulfate 325 mg (65 mg iron) Oral Tablet Take 1 Tab by mouth 2 times daily (with meals). 04/04/15 Campbell Huston MD gabapentin (NEURONTIN) 100 mg Oral Capsule Take 200 mg by mouth 4 times daily. Provider, Historical glipiZIDE (GLUCOTROL) 10 mg Oral Tablet Take 10 mg by mouth 2 times daily. Provider, Historical icosapent ethyl (VASCEPA) 1 gram Oral Capsule Take 1 g by mouth 2 times daily. Provider, Historical Insulin glargine (BASAGLAR KWIKPEN U-100 INSULIN) 100 unit/mL (3 mL) SubQ Insulin Pen Subcutaneous (Inject under the skin) 35 Units every evening. 09/09/18 Joanna Pierce MD isosorbide mononitrate (IMDUR) 60 mg Oral Tablet Sustained Release 24 hr Take 120 mg by mouth daily. Provider, Historical lamoTRIgine (LAMICTAL) 100 mg Oral Tablet Take 50 mg by mouth daily forging die sinker. And Takes 100 mgat night Provider, Historical loperamide (IMODIUM) 2 mg Oral Capsule Take 2 mg by mouth 2 times daily. Provider, Historical Melatonin 3 mg Oral Tablet Take 5 mg by mouth nightly. Provider, Historical metFORMIN XR (GLUCOPHAGE-XR) 500 mg Oral Tablet Sustained Release 24 hr Take 500 mg by mouth daily (with breakfast). Provider, Historical nitroGLYCERIN (NITROSTAT) 0.4 mg SL Tablet, Sublingual Place under the tongue every 5 minutes as needed for Chest pain. Provider, Historical oxybutynin (DITROPAN-XL) 10 mg Oral Tablet Extended Rel 24 hr TAKE ONE TABLET BY MOUTH ONCE DAILY 09/06/18 Sharee Segovia ARNP pantoprazole (PROTONIX) 40 mg Oral Tablet, Delayed Release (E.C.) Take 1 Tab by mouth daily. 09/21/17 Ernie Pizano MD QUEtiapine (SEROQUEL) 50 mg Oral Tablet Take 100 mg by mouth nightly. Provider, Historical RANEXA 1,000 mg Oral Tablet Sustained Release 12 hr TAKE ONE TABLET BY MOUTH EVERY 12 HOURS 10/06/17 Joanna Pierce MD Saccharomyces boulardii (FLORASTOR) 250 mg Oral Capsule Take 250 mg by mouth 2 times daily. Provider, Historical sertraline (ZOLOFT) 100 mg Oral Tablet Take 200 mg by mouth daily. Reported on 08/12/2016 Provider, Historical sucralfate (CARAFATE) 100 mg/mL Oral Suspension Take 1 g by mouth 4 times daily (before meals and nightly). Provider, Historical traZODone (DESYREL) 50 mg Oral Tablet Take 3 Tabs by mouth nightly. 07/12/18 Sharee Segovia ARNP Past Medical History: Past Medical History: Diagnosis Date ??? Atrial flutter (HCC) EPS, AFL Ablation on 12/31/[address] Tee ??? CHF (congestive heart failure) (HCC) ??? COPD (chronic obstructive pulmonary disease) (HCC) ??? DDD (degenerative disc disease) ??? Diabetes mellitus (HCC) ??? Gastrointestinal hemorrhage associated with gastroduodenitis 04/01/2015 ??? Hypertension ??? Intellectual disability 05/03/2017 ??? NJ (myocardial infarction) (HCC) ??? RLS (restless legs syndrome) ??? Schizoaffective disorder, depressive type (HCC) 02/19/2017 ??? Stroke (HCC) 2010 left side affected ??? Suicide attempt (HCC) ??? Urinary incontinence ??? Yeast infection recurrent Social History: reports that she has never smoked. She has never used smokeless tobacco. She reports that she does not drink alcohol, use drugs, or engage in sexual activity. Family History: Family History Problem Relation Age of Onset ??? Cancer Mother larnyx cancer ??? Colon Cancer Mother ??? Heart Disease Sister ??? Heart Disease Brother ??? No Known Problems Son ??? Seizures Daughter Surgical History: Past Surgical History: Procedure Laterality Date ??? ABLATION OF DYSRHYTHMIC FOCUS 12/31/2015 atrial flutter ablation by Dr. Tee ??? ANKLE SURGERY ??? BREAST SURGERY reduction ??? JOINT REPLACEMENT left total knee replacement 1999 ??? KNEE SURGERY Left 12/06/2008 ??? LUNG SURGERY partial removal ??? ORTHOPEDIC SURGERY ??? TONSILLECTOMY ??? UPPER GASTROINTESTINAL ENDOSCOPY N/A 04/03/2015 ESOPHAGOGASTRODUODENOSCOPY WITH BIOPSY AND BRUSHING; Surgeon: Chrissy Brown MD; Location: [facility]; Service: Endoscopy Review of Systems Review of Systems Skin: Redness and pain bilateral lower extremities. Physical Exam Blood pressure 144/65, pulse 50, temperature 97.5 ??F (36.4 ??C), temperature source Oral, resp. rate 16, SpO2 99 %, not currently . Physical Exam Constitutional: She is oriented to person, place, and time. She appears well- developed and well-nourished. HENT: Head: Normocephalic and atraumatic. Right Ear: External ear normal. Left Ear: External ear normal. Nose: Nose normal. Mouth/Throat: Oropharynx is clear and moist. Eyes: Pupils are equal, round, and reactive to light. Conjunctivae and EOM are normal. Cardiovascular: Normal rate, regular rhythm, normal heart sounds and intact distal pulses. Pulmonary/Chest: Effort normal and breath sounds normal. Neurological: She is alert and oriented to person, place, and time. Skin: Skin is warm and dry. There is small scattered areas of scabs to bilateral lackey areas and small raised blisters noted scattered to area. This is surrounded by erythema and swelling. No abscess palpated. A couple small 3 mm pustules noted to the right lackey region. No abscess. Erythema is localized surrounding blistered/scabbed area. neurovascularly intact bilateral lower extremities. Psychiatric: She has a normal mood and affect. Her behavior is normal. Nursing note and vitals reviewed. Procedures Radiology/EKG/Labs: Results for orders placed or performed during the hospital encounter of 09/29/18 CBC WITH DIFF Result Value Ref Range WBC 6.5 4.0 - 11.0 x10(3)/mcL RBC 3.97 3.80 - 5.10 x10(6)/mcL Hgb 12.1 12.0 - 15.6 g/dL Hct 36.4 35.7 - 45.9 % MCV 91.8 82.5 - 99.8 fL MCH 30.4 27.0 - 34.3 pg MCHC 33.1 32.1 - 35.3 g/dL RDW 14.7 11.5 - 15.0 % Platelet 168 144 - 423 x10(3)/mcL MPV 9.4 6.8 - 10.8 fL Neut Percent 59.3 % Lymph Percent 30.8 % Fountain Percent 5.8 % Eos Percent 3.5 % Baso Percent 0.6 % Neut # 3.9 1.8 - 7.7 x10(3)/mcL Lymph # 2.0 0.6 - 4.8 x10(3)/mcL Fountain # 0.4 0.0 - 1.3 x10(3)/mcL Eos# 0.2 0.0 - 0.5 x10(3)/mcL Baso # 0.0 0.0 - 0.2 x10(3)/mcL COMPREHENSIVE METABOLIC PANEL Result Value Ref Range Sodium 141 136 - 145 mmol/L Potassium 4.6 3.5 - 5.0 mmol/L Chloride 105 98 - 107 mmol/L Total CO2 30 (H) 22 - 29 mmol/L Anion Gap 6 (L) 7 - 16 mmol/L Calcium 10.3 8.8 - 10.4 mg/dL Glucose Lvl 83 82 - 100 mg/dL BUN 22 8 - 23 mg/dL Creatinine 1.30 0.51 - 1.30 mg/dL Albumin 4.4 3.2 - 4.6 gm/dL Total Protein 7.7 6.4 - 8.3 gm/dL Bili Total 0.6 0.1 - 1.3 mg/dL ALT 10 <=41 IU/L AST 10 <=40 IU/L Alk Phos 145 (H) 36 - 123 IU/L GFR Afr Am 49 (L) >=60 mL/min/1.73 m2 GFR Non Afr Am 43 (L) >=60 mL/min/1.73 m2 ED Course: Appropriate laboratory and radiology studies reviewed Patient is evaluated appears on exam. She does have localized areas of scabs and blistering to bilateral lackey areas. Appears that she has been scratching at the initial contact dermatitis to both lackey regions. This appears to have become infected causing a secondary cellulitis. Cellulitis appears to be localized to both lower extremity areas below the knee and above the ankle. She is given an injection IM of clindamycin here in the emergency department. She was given B discharge and oral antibiotics but when talking to the director long term care over at her facility they stated they have been having difficulty with managing the patient do not feel that they would be able to manage this patient especially with the added diagnosis. Therefore then talked our director long term care, Katheryn, who talked to her supervisor phosphatic fertilizer about getting the patient admitted for observation. I then talked to Dr. Paz, the hospitalist on-call, who agreed to admitting the patient but stated to place the patient is inpatientfor IV antibiotic coverage and for more time for placement because he did not feel that we will be able to get her placed to his somewhere but tomorrow. Patient is explained that she will be staying overnight. ED Clinical Impression: Bilateral lower extremity cellulitis Critical Care time Condition at Discharge/Transfer from Department: Stable This chart was completed using voice recognition technology and may contain unintended errors Elizabeth Bhatia PA-C 09/29/18 1431 Elizabeth Bhatia PA-C 09/29/18 1522 Cosigned by Jemima Swartz MD at 09/29/2018 9:49 PM EDT Associated attestation - Jemima Swartz MD - 09/29/2018 9:49 PM EDT I have reviewed the chief complaint, history of present illness and review of systems as well as the past medical/social/family history sections for this patient. I have examined this patient and participated in the care of this patient. I reviewed the pertinent clinical information including physical exam, labs, radiographic studies and the plan. This patient was seen in coordination with the PA/BODY HANGER. This chart was completed using voice recognition technology and may contain unintended errors documented in this encounter Miscellaneous Notes * Utilization Review Notes - Patricia Cabrera LPN - 10/06/2018 8:51 PM EDT DISCHARGED TO [facility] ON 10/06/18 , * Plan of Care - Jackeline Nance RN - 10/06/2018 2:27 PM EDT Problem: Assess for New Problems - (ALWAYS ADD TO CARE PLAN) Description Assess patient for any new problem(s) to add to Care Plan. If no new problem(s) are identified, choose no new problem(s) added . If new problem(s) are identified, choose new problem added and document a note regarding the new problem(s). Add the template for the new problem(s) to the Care Plan. Goal: Patient's care plan will be individualized with added problems when problem is identified Description Below is a list of the more common patient problems. The list is not all inclusive. When an additional problem is identified add to the Care Plan. To see entire list of additional problem options, search ADDITIONAL PROBLEMS [51] or search for individual problems such as RESTRAINTS [62]. To add an Additional Problem, go to APPLY TEMPLATE. Common problems: Altered bladder elimination [77] Altered bowel elimination [78] Altered mental status [80] Altered mobility [79] Altered skin integrity [86] Trace scale <18 (prevention) [76] Diabetes newly diagnosed/uncontrolled or A1C >6 [75] Infection [93] Isolation [69] Nutrition imbalance [91] Restraints [94] Outcome: No New Problem(s) Identified Problem: Individualized Patient Preference/Goals - (ALWAYS ADD TO CARE PLANS) Description (always add to care plan) Goal: What is most important for you today? ANSWER DAILY Description This goal needs to be ANSWER DAILY - DO NOT COMPLETE Outcome: Progressing Flowsheets (Taken 10/06/2018 4107) What is most important for you today? (ANSWER DAILY): Talk to [place] Goal: Care Team Goal Description Document what the Care Team goal is to help the patient meet their What's Most Important For You Today? DAILY goal This goal needs to be ANSWER DAILY - DO NOT COMPLETE Outcome: Progressing Flowsheets (Taken 10/06/2018 5535) Care Team Goal: Monitor for patient safety Problem: Safety: Fall Risk Goal: Patient will remain free of falls and injury Outcome: Progressing Problem: Pain Management Goal: The patient's stated pain goal will be reached and maintained. Description The patient's stated pain goal will be reached and maintained Outcome: Progressing Problem: Knowledge Deficit Related to Disease Process/Treatment Description Goal: Patient/family will be knowledgeable of disease process and treatment Outcome: Progressing Problem: Psycho/Social/Spiritual Goal: Patient will identify sources of support and strength Outcome: Progressing Problem: Risk for harm to self or others - 74 Description related to drug overdose/suicide Goal: Patient will be free from danger to self or others Outcome: Progressing Problem: Individualized Patient Preference/Goals - (ALWAYS ADD TO CARE PLANS) Description (always add to care plan) Goal: What are your personal goals for this hospitalization? Description Ask the patient what their personal goal is for this hospitalization. Example: I want to be able toplay with my grandkids, gardening, get back to work, etc Outcome: Completed Flowsheets (Taken 09/29/20181626 by Jesica Valdez, ROLF) What are your personal goals for this hospitalization?: To get antibiotic and go home Goal: What personal preferences should we be aware of to make your stay more comfortable? Description Ask the patient for some personal preferences. Examples: I use two pillows to sleep at night, I take my meds with applesauce, I do not like cheese, I don't want a male nurse Outcome: Completed Flowsheets (Taken 09/29/20181626 by Jesica Valdez, RN) What personal preferences should we be aware of to make your stay more comfortable?: None Goal: What is your greatest fear or concern around this hospitalization? Description This question is geared toward patient experience to reduce anxiety. Outcome: Completed Flowsheets (Taken 09/29/20181626 by Jesica Valdez, RN) What is your greatest fear or concern around your hospitalization?: None Goal: Tell me about yourself (i.e. hobbies, interests, pets, etc) Outcome: Completed Flowsheets (Taken 09/29/20181626 by Jesica Valdez, RN) Tell me about yourself (i.e. hobbies, pets, interests): Nails * Utilization Review Notes - Patricia Cabrera LPN - 10/06/2018 8:32 AM EDT conts on icu, TEMP 97.8, HR 57, RESP 17, BP 117/61, Pt transferred to ICU for suicide precautions. Pt has been admitted to floor since 09/29 w/ cellulitis ON 72 HR HOLD, Cellulitis bilateral LE - Doxycycline PO CONTS ON SUICIDE PRECAUTIONS,. * Plan of Care - Melisa Winters - 10/06/2018 6:25 AM EDT Problem: Individualized Patient Preference/Goals - (ALWAYS ADD TO CARE PLANS) Description (always add to care plan) Goal: Tell me about yourself (i.e. hobbies, interests, pets, etc) Outcome: Progressing Goal: Care Team Goal Description Document what the Care Team goal is to help the patient meet their What's Most Important For You Today? DAILY goal This goal needs to be ANSWER DAILY - DO NOT COMPLETE Outcome: Progressing Flowsheets (Taken 10/06/2018618) Care Team Goal: No attempts to injure self per pt will occur this shift Note: Pt cooperative, alert and oriented times 3. No attempts to injure self this shift. Problem: Individualized Patient Preference/Goals - (ALWAYS ADD TO CARE PLANS) Description (always add to care plan) Goal: Tell me about yourself (i.e. hobbies, interests, pets, etc) Outcome: Progressing Problem: Safety: Fall Risk Goal: Patient will remain free of falls and injury Outcome: Progressing Note: No falls or injury this shift Problem: Pain Management Goal: The patient's stated pain goal will be reached and maintained. Description The patient's stated pain goal will be reached and maintained Outcome: Progressing Flowsheets (Taken 10/06/2018618) Post Intervention Reassessment: Denies Note: Denies pain this shift Problem: Knowledge Deficit Related to Disease Process/Treatment Description Goal: Patient/family will be knowledgeable of disease process and treatment Outcome: Progressing Note: Discussed 72 hour hold, and suicide precautions with pt. Verbalizes understanding of reason for suicide precautions. Problem: Psycho/Social/Spiritual Goal: Patient will identify sources of support and strength Outcome: Not Progressing Note: Lives in a [place] in [facility] and has lost her room [facility]. Pt says she is comfortable there and has 2 roommates who she likes, a boyfriend there, and outside cats that she feeds. Patient is upset over the prospect of losing her housing or room while being in hospital. Had adult kids who live in another state, does not seem to have much social or family support other than center where she is comfortable. Problem: Assess for New Problems - (ALWAYS ADD TO CARE PLAN) Description Assess patient for any new problem(s) to add to Care Plan. If no new problem(s) are identified, choose no new problem(s) added . If new problem(s) are identified, choose new problem added and document a note regarding the new problem(s). Add the template for the new problem(s) to the Care Plan. Goal: Patient's care plan will be individualized with added problems when problem is identified Description Below is a list of the more common patient problems. The list is not all inclusive. When an additional problem is identified add to the Care Plan. To see entire list of additional problem options, search ADDITIONAL PROBLEMS [51] or search for individual problems such as RESTRAINTS [62]. To add an Additional Problem, go to APPLY TEMPLATE. Common problems: Altered bladder elimination [77] Altered bowel elimination [78] Altered mental status [80] Altered mobility [79] Altered skin integrity [86] Trace scale <18 (prevention) [76] Diabetes newly diagnosed/uncontrolled or A1C >6 [75] Infection [93] Isolation [69] Nutrition imbalance [91] Restraints [94] Outcome: Progressing * Plan of Care - Rosalie Epps RN - 10/05/2018 2:22 PM EDT Pt a&o, states is depressed. And wishes to go home. Vitals stable. Took ultram this shift for c/o chronic knee pain. Up with assist. Eating well. Rosalie Epps * Plan of Care - Rocio Haile PT - 10/05/2018 2:16 PM EDT I agree with student PT's POC. Rocio Haile, PT * Utilization Review Notes - Sridevi Harris RN - 10/05/2018 10:00 AM EDT INPATIENT ORDER ON CHART, CONTINUES STAY ON TELEMETRY FLOOR FOR: Cellulitis bilateral LE JACK on CKD. Stage 3 CKD 1/2NS @ 100ML/HR, VIBRATABS BID, LOVENOX, RANEXA, CARAFATE, ULTRAM X [address] ROBBINS: Medically ready for discharge when placement found DISCHARGE PLAN PER SW: 10/03/18: SW reviewed chart and discussed with nursing. Patient from [facility]. SW spoke to Nii ([phone]) from [facility] on 09/30 who stated that they had been working with APS regarding patient and APS had suggested that they send patient to hospital as patient has been requiring more care than they are able to prepare. Per Nii, patient is a fall risk which is why she is not able to return. There are concerns that patient may not meet level of care for Medicaid pending bed. LISA had sent mass referral to find accepting facility. Received call from [facility] who are possibly able to accept but want to do an in person evaluation prior to accept, which will occurr this afternoon or tomorrow. Will continue to attempt to find accepting facility. SW to follow. * Plan of Care - Kandice Davidson RN - 10/05/2018 7:40 AM EDT Problem: Assess for New Problems - (ALWAYS ADD TO CARE PLAN) Description Assess patient for any new problem(s) to add to Care Plan. If no new problem(s) are identified, choose no new problem(s) added . If new problem(s) are identified, choose new problem added and document a note regarding the new problem(s). Add the template for the new problem(s) to the Care Plan. Goal: Patient's care plan will be individualized with added problems when problem is identified Description Below is a list of the more common patient problems. The list is not all inclusive. When an additional problem is identified add to the Care Plan. To see entire list of additional problem options, search ADDITIONAL PROBLEMS [51] or search for individual problems such as RESTRAINTS [62]. To add an Additional Problem, go to APPLY TEMPLATE. Common problems: Altered bladder elimination [77] Altered bowel elimination [78] Altered mental status [80] Altered mobility [79] Altered skin integrity [86] Trace scale <18 (prevention) [76] Diabetes newly diagnosed/uncontrolled or A1C >6 [75] Infection [93] Isolation [69] Nutrition imbalance [91] Restraints [94] Outcome: No New Problem(s) Identified Problem: Safety: Fall Risk Goal: Patient will remain free of falls and injury Outcome: Progressing Note: Bed alarm remains on. Pt calls for assist when needed. Problem: Pain Management Goal: The patient's stated pain goal will be reached and maintained. Description The patient's stated pain goal will be reached and maintained Outcome: Progressing Note: PO pain med given at bedtime. Pt slept well thru the night. Problem: Knowledge Deficit Related to Disease Process/Treatment Description Goal: Patient/family will be knowledgeable of disease process and treatment Outcome: Progressing Problem: Psycho/Social/Spiritual Goal: Patient will identify sources of support and strength Outcome: Progressing * Plan of Care - Rosalie Epps, ROLF - 10/04/2018 2:55 PM EDT Pt a&o, up with assist. No c/o pain. Tolerating po well. Vitals stable. No new issues. Rosalie Epps * Plan of Care - Shona Palm RN - 10/04/2018 3:08 AM EDT Uneventful shift. VSS. BLE red, swollen, and scabs noted. IV in right upper arm with 0.45% NS running at 100ml/hr. Pt c/o of bilateral leg pain which was unrelieved with Tylenol; notified BODY HANGER and she ordered Ultram. Ultram given with success. Call light and belongings within reach. Will continue to monitor. * Plan of Care - Marjorie Stearns RN - 10/03/2018 5:38 AM EDT Problem: Safety: Fall Risk Goal: Patient will remain free of falls and injury Outcome: Progressing Note: Free on fall Problem: Pain Management Goal: The patient's stated pain goal will be reached and maintained. Description The patient's stated pain goal will be reached and maintained Outcome: Progressing Note: Prn pain tylenol given with relief Problem: Knowledge Deficit Related to Disease Process/Treatment Description Goal: Patient/family will be knowledgeable of disease process and treatment Outcome: Progressing Problem: Psycho/Social/Spiritual Goal: Patient will identify sources of support and strength Outcome: Progressing * Plan of Care - Rosalie Epps RN - 10/01/2018 3:42 PM EDT Pt a&o, independent in bed. No c/o pain. Vitals stable. Tolerating po well. Kieran lower ext red, swollen. No open areas. Rosalie Epps * Utilization Review Notes - Viktoriya Pepe RN - 10/01/2018 11:15 AM EDT Inpatient order in chart. New admit from ED to Med Surg for Bilateral lower extremity cellulitis Patient presents with ??? Cellulitis ? pt arrives per EMS from [facility]. pt has bilat lower leg swelling and redness There is small scattered areas of scabs to bilateral lackey areas and small raised blisters noted scattered to area. This is surrounded by erythema and swelling. No abscess palpated. A couple small 3 mm pustules noted to the right lackey region. No abscess. Erythema is localized surrounding blistered/scabbed area. neurovascularly intact bilateral lower extremities. Cleocin ivpb Iv x 1, Cleocin IM x 1, Doxycycline ivpb Bid, Insulin, Consult PT CC/SW following for dc planning to assist with arrangement for patients transferring to SNF's. Patient needs assist. [facility] she has become more than they can care for.SW will proactively send mass referral for placement in [facility]. SW to follow. PT Recommendation 24 hour supervision/assist;Home PT Attending MD [place] 09-30-18 No resolved problems to display. continue IV doxycycline from this morning. While this marketing copywriter could switch it to PO doxycycline, [facility] personal care facility where she lives would not accept her back though she was adamant that she can go back till she finds a detention [place] the [place] to [place] since she feels she hasnt deteriorated enough but they are saying to the social service liaison that she cant come back. Difficult situation to be in. Didn't order discharge since if the personal prison doesn't take her, she would become homeless! No new strokes at this time No more falls since being in the hospital Heart failure stable Mood fluctuant especially after being told that she cant ho back today Stay today. Continue the rest of the regimen. See orders for details. To be discharged when a safe and clear plan is established for her * Plan of Care - Shona Palm RN - 10/01/2018 1:27 AM EDT Uneventful shift. VSS. BLE w/ redness, swelling, and scabs. C/o BLE pain; Tylenol given for pain. IV in L AC was occluded, nursing supervisor phosphatic fertilizer stared new IV in R upper arm. IV Doxycycline administered. Standy assist w/ pt's rolling walker. Pt nervous about where she is going to live since she is unable to return to [facility]; support and comfort provided. Call light and belongings within reach. Bed alarm on throughout shift for safety. Will continue to monitor. * Plan of Care - Jennifer Naqvi RN - 09/30/2018 8:59 AM EDT Problem: Safety: Fall Risk Goal: Patient will remain free of falls and injury Note: Bed alarm on. Call light and belongings within reach. Nonskid socks on. Yellow armband on. Signage outside the door. * Plan of Care - Toshia Rachel, ROLF - 09/30/2018 3:29 AM EDT Resting in bed, has cellulitis of lower extremities, legs reddened with scabs, swollen getting vibramycin iv twice a day, states has to leave hospital in morning she has 2 appointments she needs to go to, documented in this encounter Plan of Treatment [...] Mathew RMA documented as of this encounter Procedures Procedure Name Priority Date/Time Associated Diagnosis Comments GLUCOSE METER POC Routine 10/06/2018 5:3 5 PM EDT GLUCOSE METER POC Routine 10/06/2018 12: 00 PM EDT GLUCOSE METER POC Routine 10/06/2018 8:2 7 AM EDT GLUCOSE METER POC Routine 10/06/2018 8:1 9 AM EDT ECG AND WAVEFORMS - TELEMETRY Routine 10/06/2018 7:02 AM EDT GLUCOSE METER POC Routine 10/05/2018 9:3 3 PM EDT GLUCOSE METER POC Routine 10/05/2018 6:1 7 PM EDT ECG AND WAVEFORMS - TELEMETRY Routine 10/05/2018 5:04 PM EDT IP CONSULT TO PSYCHIATRY Routine 10/05/2018 3:44 PM EDT Procedure Note - Jose Eduardo Green MD - 10/06/2018 4:27 PM EDTThis note is in progress. Full consult dictated: [id number] Transfer to [facility] when medically cleared. GLUCOSE METER POC Routine 10/05/2018 11: 42 AM EDT GLUCOSE METER POC Routine 10/05/2018 8:3 2 AM EDT GLUCOSE METER POC Routine 10/04/2018 9:5 2 PM EDT GLUCOSE METER POC Routine 10/04/2018 4:3 0 PM EDT GLUCOSE METER POC Routine 10/04/2018 12: 24 PM EDT GLUCOSE METER POC Routine 10/04/2018 7:5 8 AM EDT BASIC METABOLIC PANEL Timed 10/04/2018 6:21 AM EDT GLUCOSE METER POC Routine 10/03/2018 9:3 3 PM EDT GLUCOSE METER POC Routine 10/03/2018 6:1 3 PM EDT GLUCOSE METER POC Routine 10/03/2018 1:1 5 PM EDT GLUCOSE METER POC Routine 10/03/2018 8:0 2 AM EDT MAGNESIUM LEVEL Timed 10/03/2018 5:56 AM EDT BASIC METABOLIC PANEL Timed 10/03/2018 5:56 AM EDT GLUCOSE METER POC Routine 10/02/2018 10: 45 PM EDT GLUCOSE METER POC Routine 10/02/2018 6:0 1 PM EDT GLUCOSE METER POC Routine 10/02/2018 1:5 1 PM EDT GLUCOSE METER POC Routine 10/02/2018 10: 30 AM EDT GLUCOSE METER POC Routine 10/02/2018 8:2 4 AM EDT GLUCOSE METER POC Routine 10/01/2018 8:2 5 PM EDT GLUCOSE METER POC Routine 10/01/2018 6:3 9 PM EDT GLUCOSE METER POC Routine 10/01/2018 2:2 7 PM EDT GLUCOSE METER POC Routine 10/01/2018 9:2 7 AM EDT GLUCOSE METER POC Routine 09/30/2018 9:2 2 PM EDT GLUCOSE METER POC Routine 09/30/2018 5:1 2 PM EDT GLUCOSE METER POC Routine 09/30/2018 12: 56 PM EDT GLUCOSE METER POC Routine 09/30/2018 7:5 0 AM EDT GLUCOSE METER POC Routine 09/29/2018 9:2 6 PM EDT GLUCOSE METER POC Routine 09/29/2018 5:3 9 PM EDT CBC WITH DIFF STAT 09/29/2018 1:07 PM EDT COMPREHENSIVE METABOLIC PANEL STAT 09/29/2018 1:07 PM EDT SALINE LOCK IV STAT 09/29/2018 12:49 PM EDT documented in this encounter Results * GLUCOSE METER POC (10/06/2018 5:35 PM EDT) Glucose Meter POC 93 70 - 100 mg/dL 10/06/2018 5:43 PM EDT [facility] Sample Type Capillary 10/06/2018 5:43 PM EDT [facility] Patient Status Non-Critical Patient 10/06/2018 5:43 PM EDT [facility] Blood BLOOD SPECIMEN / Unknown 10/06/2018 5:35 PM EDT 10/06/2018 5:43 PM EDT Mayo Robbins MD POINT OF CARE TEST ORDERABLES Final Result Performing Organization Address City/[facility]/ZIP Co de Phone Number [address] [address] * (ABNORMAL) GLUCOSE METER POC (10/06/2018 12:00 PM EDT) Glucose Meter POC 201(H) 70 - 100 mg/dL 10/06/2018 12:06 PM EDT [facility] Sample Type Capillary 10/06/2018 12:06 PM EDT [facility] Patient Status Non-Critical Patient 10/06/2018 12:06 PM EDT [facility] Blood BLOOD SPECIMEN / Unknown 10/06/2018 12:00 PM EDT 10/06/2018 12:06 PM EDT us Mayo Robbins MD POINT OF CARE TEST ORDERABLES Final Result [address] [address] * GLUCOSE METER POC (10/06/2018 8:27 AM EDT) Glucose Meter POC 78 70 - 100 mg/dL 10/06/2018 8:29 AM EDT [facility] Sample Type Capillary 10/06/2018 8:29 AM EDT [facility] Patient Status Non-Critical Patient 10/06/2018 8:29 AM EDT [facility] Blood BLOOD SPECIMEN / Unknown 10/06/2018 8:27 AM EDT 10/06/2018 8:29 AM EDT us Mayo Robbins MD POINT OF CARE TEST ORDERABLES Final Result Performing Organization Address [facility] de Phone Number [facility] [address] [place] [address] * (ABNORMAL) GLUCOSE METER POC (10/06/2018 8:19 AM EDT) Glucose Meter POC 61(L) 70 - 100 mg/dL 10/06/2018 8:26 AM EDT [facility] Sample Type Capillary 10/06/2018 8:26 AM EDT [facility] Patient Status Non-Critical Patient 10/06/2018 8:26 AM EDT [facility] Blood BLOOD SPECIMEN / Unknown 10/06/2018 8:19 AM EDT 10/06/2018 8:26 AM EDT us Mayo Robbins MD POINT OF CARE TEST ORDERABLES Final Result Performing Organization Address [facility] Co de Phone Number [facility] [address] [place] [address] * ECG AND WAVEFORMS - TELEMETRY (10/06/2018 7:02 AM EDT) ECG INTERPRET Sinus Bradycardia [facility] APPROVED Yes [facility] 10/06/2018 7:02 AM EDT Narrative [facility] - 10/06/2018 7:28 AM EDT ??See Clinical Report link for waveform capture us Unknown Provider POINT OF CARE CARDIOLOGY Final Result Performing Organization Address [facility] Co de Phone Number [facility] [address] [place] [address] * (ABNORMAL) GLUCOSE METER POC (10/05/2018 9:33 PM EDT) Glucose Meter POC 128(H) 70 - 100 mg/dL 10/05/2018 9:34 PM EDT [facility] Sample Type Capillary 10/05/2018 9:34 PM EDT [facility] Patient Status Non-Critical Patient 10/05/2018 9:34 PM EDT [facility] Blood BLOOD SPECIMEN / Unknown 10/05/2018 9:33 PM EDT 10/05/2018 9:34 PM EDT us Mayo Robbins MD POINT OF CARE TEST ORDERABLES Final Result [facility] [address] [place] [address] * (ABNORMAL) GLUCOSE METER POC (10/05/2018 6:17 PM EDT) Glucose Meter POC 169(H) 70 - 100 mg/dL 10/05/2018 6:21 PM EDT [facility] Sample Type Capillary 10/05/2018 6:21 PM EDT [facility] Patient Status Non-Critical Patient 10/05/2018 6:21 PM EDT [facility] Blood BLOOD SPECIMEN / Unknown 10/05/2018 6:17 PM EDT 10/05/2018 6:21 PM EDT us Mayo Robbins MD POINT OF CARE TEST ORDERABLES Final Result Performing Organization Address City/[facility]/ZIP Co de Phone Number [facility] [address] [place] [address] * ECG AND WAVEFORMS - TELEMETRY (10/05/2018 5:04 PM EDT) ECG INTERPRET NSR [facility] APPROVED Yes [facility] 10/05/2018 5:04 PM EDT Narrative [facility] - 10/05/2018 6:07 PM EDT ??See Clinical Report link for waveform capture us Unknown Provider POINT OF CARE CARDIOLOGY Final Result [facility] [address] [place] [address] * (ABNORMAL) GLUCOSE METER POC (10/05/2018 11:42 AM EDT) Glucose Meter POC 122(H) 70 - 100 mg/dL 10/05/2018 11:43 AM EDT [facility] Sample Type Capillary 10/05/2018 11:43 AM EDT [facility] Patient Status Non-Critical Patient 10/05/2018 11:43 AM EDT [facility] Blood BLOOD SPECIMEN / Unknown 10/05/2018 11:42 AM EDT 10/05/2018 11:43 AM EDT Mayo Robbins MD POINT OF CARE TEST [place] [address] * (ABNORMAL) GLUCOSE METER POC (10/05/2018 8:32 AM EDT) Glucose Meter POC 127(H) 70 - 100 mg/dL 10/05/2018 8:33 AM EDT [facility] Sample Type Capillary 10/05/2018 8:33 AM EDT [facility] Patient Status Non-Critical Patient 10/05/2018 8:33 AM EDT [facility] Blood BLOOD SPECIMEN / Unknown 10/05/2018 8:32 AM EDT 10/05/2018 8:33 AM EDT us Mayo Robbins MD POINT OF CARE TEST ORDERABLES Final Result Performing Organization Address City/[facility]/[place] [address] * (ABNORMAL) GLUCOSE METER POC (10/04/2018 9:52 PM EDT) Glucose Meter POC 205(H) 70 - 100 mg/dL 10/04/2018 9:58 PM EDT [facility] Sample Type Capillary 10/04/2018 9:58 PM EDT [facility] Patient Status Non-Critical Patient 10/04/2018 9:58 PM EDT [facility] Blood BLOOD SPECIMEN / Unknown 10/04/2018 9:52 PM EDT 10/04/2018 9:58 PM EDT Mayo Robbins MD POINT OF CARE TEST ORDERABLES Final Result Performing Organization Address City/[facility]/ZIP Co de Phone Number [address] [address] * (ABNORMAL) GLUCOSE METER POC (10/04/2018 4:30 PM EDT) Glucose Meter POC 181(H) 70 - 100 mg/dL 10/04/2018 4:31 PM EDT [facility] Sample Type Capillary 10/04/2018 4:31 PM EDT [facility] Patient Status Non-Critical Patient 10/04/2018 4:31 PM EDT [facility] Blood BLOOD SPECIMEN / Unknown 10/04/2018 4:30 PM EDT 10/04/2018 4:31 PM EDT Mayo Robbins MD POINT OF CARE TEST ORDERABLES Final Result Performing Organization Address [facility] Co de Phone Number [address] [address] * (ABNORMAL) GLUCOSE METER POC (10/04/2018 12:24 PM EDT) Glucose Meter POC 155(H) 70 - 100 mg/dL 10/04/2018 12:26 PM EDT [facility] Sample Type Capillary 10/04/2018 12:26 PM EDT [facility] Patient Status Non-Critical Patient 10/04/2018 12:26 PM EDT [facility] Blood BLOOD SPECIMEN / Unknown 10/04/2018 12:24 PM EDT 10/04/2018 12:26 PM EDT us Mayo Robbins MD POINT OF CARE TEST ORDERABLES Final Result Performing Organization Address City/[facility]/ZIP Co de Phone Number [address] [address] * (ABNORMAL) GLUCOSE METER POC (10/04/2018 7:58 AM EDT) Glucose Meter POC 119(H) 70 - 100 mg/dL 10/04/2018 7:59 AM EDT [facility] Sample Type Capillary 10/04/2018 7:59 AM EDT [facility] Patient Status Non-Critical Patient 10/04/2018 7:59 AM EDT [facility] Blood BLOOD SPECIMEN / Unknown 10/04/2018 7:58 AM EDT 10/04/2018 7:59 AM EDT us Mayo Robbins MD POINT OF CARE TEST ORDERABLES Final Result [facility] [address] [place] [address] * (ABNORMAL) BASIC METABOLIC PANEL (10/04/2018 6:21 AM EDT) [facility] Sodium 145 136 - 145 mmol/L 10/04/2018 7:03 AM EDT [facility] Potassium 4.5 3.5 - 5.0 mmol/L 10/04/2018 7:03 AM EDT [facility] Chloride 110(H) 98 - 107 mmol/L 10/04/2018 7:03 AM EDT [facility] Total CO2 27 22 - 29 mmol/L 10/04/2018 7:03 AM EDT [facility] Anion Gap 8 7 - 16 mmol/L 10/04/2018 7:03 AM EDT [facility] Calcium 9.2 8.8 - 10.4 mg/dL 10/04/2018 7:03 AM EDT [facility] Glucose Lvl 123(H) 82 - 100 mg/dL 10/04/2018 7:03 AM EDT [facility] BUN 31(H) 8 - 23 mg/dL 10/04/2018 7:03 AM EDT [facility] Creatinine 1.34(H) 0.51 - 1.30 mg/dL 10/04/2018 7:03 AM EDT [facility] GFR Afr Am 47(L) >=60 mL/min/1.7 3 m2 10/04/2018 7:03 AM EDT [facility] GFR Non Afr Am 41(L) >=60 mL/min/1.7 3 m2 10/04/2018 7:03 AM EDT [facility] Comment: This estimated GFR was calculated using CKD-EPI equation which is modified based on ethnicity for Non Americans and Americans. Both results are reported since it is not always possible to determine the patient's ethnicity. This equation should only be used for individuals 18 and older. It has not been validated for use with the elderly (>70 years), women, or in some racial or ethnic subgroups, such as Hispanics. The equation will be less accurate in people with differences in nutritional status or muscle mass. Blood Venipuncture / Unknown 10/04/2018 6:21 AM EDT 10/04/2018 6:38 AM EDT Sherif Bartholomew MD CHEMISTRY ORDERABLES Final R esult Performing Organization Address [facility] Co de Phone Number [facility] [address] [place] [address] * (ABNORMAL) GLUCOSE METER POC (10/03/2018 9:33 PM EDT) Glucose Meter POC 243(H) 70 - 100 mg/dL 10/03/2018 9:34 PM EDT [facility] Sample Type Capillary 10/03/2018 9:34 PM EDT [facility] Patient Status Non-Critical Patient 10/03/2018 9:34 PM EDT [facility] Blood BLOOD SPECIMEN / Unknown 10/03/2018 9:33 PM EDT 10/03/2018 9:34 PM EDT us hSerif Bartholomew MD POINT OF CARE TEST ORDERABLE S Final Result Performing Organization Address City/[facility]/ZIP Co de Phone Number [facility] [address] [place] [address] * (ABNORMAL) GLUCOSE METER POC (10/03/2018 6:13 PM EDT) Glucose Meter POC 178(H) 70 - 100 mg/dL 10/03/2018 6:14 PM EDT [facility] Sample Type Capillary 10/03/2018 6:14 PM EDT [facility] Patient Status Non-Critical Patient 10/03/2018 6:14 PM EDT [facility] Blood BLOOD SPECIMEN / Unknown 10/03/2018 6:13 PM EDT 10/03/2018 6:14 PM EDT us Sherif Bartholomew MD POINT OF CARE TEST ORDERABLE S Final Result Performing Organization Address [facility] [place] [address] * GLUCOSE METER POC (10/03/2018 1:15 PM EDT) Glucose Meter POC 88 70 - 100 mg/dL 10/03/2018 1:16 PM EDT [facility] Sample Type Capillary 10/03/2018 1:16 PM EDT [facility] Patient Status Non-Critical Patient 10/03/2018 1:16 PM EDT [facility] Blood BLOOD SPECIMEN / Unknown 10/03/2018 1:15 PM EDT 10/03/2018 1:16 PM EDT us Sherif Bartholomew MD POINT OF CARE TEST ORDERABLE S Final Result Performing Organization Address [facility] [place] [address] * (ABNORMAL) GLUCOSE METER POC (10/03/2018 8:02 AM EDT) Glucose Meter POC 120(H) 70 - 100 mg/dL 10/03/2018 8:03 AM EDT [facility] Sample Type Capillary 10/03/2018 8:03 AM EDT [facility] Patient Status Non-Critical Patient 10/03/2018 8:03 AM EDT [facility] Blood BLOOD SPECIMEN / Unknown 10/03/2018 8:02 AM EDT 10/03/2018 8:03 AM EDT us Sherif Bartholomew MD POINT OF CARE TEST ORDERABLE S Final Result Performing Organization Address City/[facility]/ZIP Co de Phone Number [facility] [address] [place] [phone] * MAGNESIUM LEVEL (10/03/2018 5:56 AM EDT) Pathologist [facility] [place] Magnesium 1.9 1.6 - 2.4 mg/dL 10/03/2018 7:09 AM EDT [facility] Blood Venipuncture / Unknown 10/03/2018 5:56 AM EDT 10/03/2018 6:32 AM EDT Sherif Bartholomew MD CHEMISTRY ORDERABLES Final R esult Performing Organization Address [facility]/ZIP Co de Phone Number [facility] [address] [place] [address] * (ABNORMAL) BASIC METABOLIC PANEL (10/03/2018 5:56 AM EDT) [facility] Sodium 146(H) 136 - 145 mmol/L 10/03/2018 7:09 AM EDT [facility] Potassium 4.8 3.5 - 5.0 mmol/L 10/03/2018 7:09 AM EDT [facility] Chloride 110(H) 98 - 107 mmol/L 10/03/2018 7:09 AM EDT [facility] Total CO2 28 22 - 29 mmol/L 10/03/2018 7:09 AM EDT [facility] Anion Gap 8 7 - 16 mmol/L 10/03/2018 7:09 AM EDT [facility] Calcium 9.7 8.8 - 10.4 mg/dL 10/03/2018 7:09 AM EDT [facility] Glucose Lvl 72(L) 82 - 100 mg/dL 10/03/2018 7:09 AM EDT [facility] BUN 38(H) 8 - 23 mg/dL 10/03/2018 7:09 AM EDT [facility] Creatinine 1.87(H) 0.51 - 1.30 mg/dL 10/03/2018 7:09 AM EDT [facility] GFR Afr Am 32(L) >=60 mL/min/1.7 3 m2 10/03/2018 7:09 AM EDT [facility] GFR Non Afr Am 27(L) >=60 mL/min/1.7 3 m2 10/03/2018 7:09 AM EDT [facility] Comment: This estimated GFR was calculated using CKD-EPI equation which is modified based on ethnicity for Non Americans and Americans. Both results are reported since it is not always possible to determine the patient's ethnicity. This equation should only be used for individuals 18 and older. It has not been validated for use with the elderly (>70 years), women, or in some racial or ethnic subgroups, such as Hispanics. The equation will be less accurate in people with differences in nutritional status or muscle mass. Blood Venipuncture / Unknown 10/03/2018 5:56 AM EDT 10/03/2018 6:32 AM EDT us Sherif Bartholomew MD CHEMISTRY ORDERABLES Final R esult Performing Organization Address City/[facility]/ZIP Co de Phone Number [facility] [address] [place] [address] * GLUCOSE METER POC (10/02/2018 10:45 PM EDT) [facility] Glucose Meter POC 74 70 - 100 mg/dL 10/02/2018 10:46 PM EDT [facility] Sample Type Capillary 10/02/2018 10:46 PM EDT [facility] Patient Status Non-Critical Patient 10/02/2018 10:46 PM EDT [facility] Blood BLOOD SPECIMEN / Unknown 10/02/2018 10:45 PM EDT 10/02/2018 10:46 PM EDT us Sherif Bartholomew MD POINT OF CARE TEST ORDERABLE S Final Result Performing Organization Address City/[facility]/ZIP Co de Phone Number [facility] [address] [place] [address] * (ABNORMAL) GLUCOSE METER POC (10/02/2018 6:01 PM EDT) Glucose Meter POC 105(H) 70 - 100 mg/dL 10/02/2018 6:02 PM EDT [facility] Sample Type Capillary 10/02/2018 6:02 PM EDT [facility] Patient Status Non-Critical Patient 10/02/2018 6:02 PM EDT [facility] Blood BLOOD SPECIMEN / Unknown 10/02/2018 6:01 PM EDT 10/02/2018 6:02 PM EDT us Sherif Bartholomew MD POINT OF CARE TEST [place] [address] * (ABNORMAL) GLUCOSE METER POC (10/02/2018 1:51 PM EDT) Glucose Meter POC 284(H) 70 - 100 mg/dL 10/02/2018 1:52 PM EDT [facility] Sample Type Capillary 10/02/2018 1:52 PM EDT [facility] Patient Status Non-Critical Patient 10/02/2018 1:52 PM EDT [facility] Blood BLOOD SPECIMEN / Unknown 10/02/2018 1:51 PM EDT 10/02/2018 1:52 PM EDT us Sherif Bartholomew MD POINT OF CARE TEST ORDERABLE S Final Result [address] [address] * (ABNORMAL) GLUCOSE METER POC (10/02/2018 10:30 AM EDT) Glucose Meter POC 104(H) 70 - 100 mg/dL 10/02/2018 10:31 AM EDT [facility] Sample Type Capillary 10/02/2018 10:31 AM EDT [facility] Patient Status Non-Critical Patient 10/02/2018 10:31 AM EDT [facility] Blood BLOOD SPECIMEN / Unknown 10/02/2018 10:30 AM EDT 10/02/2018 10:30 AM EDT us Sherif Bartholomew MD POINT OF CARE TEST ORDERABLE S Final Result [facility] [address] [place] [address] * (ABNORMAL) GLUCOSE METER POC (10/02/2018 8:24 AM EDT) Glucose Meter POC 106(H) 70 - 100 mg/dL 10/02/2018 8:30 AM EDT [facility] Sample Type Capillary 10/02/2018 8:30 AM EDT [facility] Patient Status Non-Critical Patient 10/02/2018 8:30 AM EDT [facility] Blood BLOOD SPECIMEN / Unknown 10/02/2018 8:24 AM EDT 10/02/2018 8:30 AM EDT us Sherif Bartholomew MD POINT OF CARE TEST ORDERABLE S Final Result Performing Organization Address [facility]/ZIP Co de Phone Number [facility] [address] [place] [phone] * (ABNORMAL) GLUCOSE METER POC (10/01/2018 8:25 PM EDT) Glucose Meter POC 134(H) 70 - 100 mg/dL 10/01/2018 8:26 PM EDT [facility] Sample Type Capillary 10/01/2018 8:26 PM EDT [facility] Patient Status Non-Critical Patient 10/01/2018 8:26 PM EDT [facility] Blood BLOOD SPECIMEN / Unknown 10/01/2018 8:25 PM EDT 10/01/2018 8:26 PM EDT us Tabitha Paz MD POINT OF CARE TEST ORDERABLES Fi nal Result [facility] [address] [place] [address] * (ABNORMAL) GLUCOSE METER POC (10/01/2018 6:39 PM EDT) Glucose Meter POC 120(H) 70 - 100 mg/dL 10/01/2018 6:40 PM EDT [facility] Sample Type Capillary 10/01/2018 6:40 PM EDT [facility] Patient Status Non-Critical Patient 10/01/2018 6:40 PM EDT [facility] Blood BLOOD SPECIMEN / Unknown 10/01/2018 6:39 PM EDT 10/01/2018 6:40 PM EDT Tabitha Paz MD POINT OF CARE TEST ORDERABLES Fi nal Result Performing Organization Address [facility] [place] [address] * (ABNORMAL) GLUCOSE METER POC (10/01/2018 2:27 PM EDT) Glucose Meter POC 128(H) 70 - 100 mg/dL 10/01/2018 2:28 PM EDT [facility] Sample Type Capillary 10/01/2018 2:28 PM EDT [facility] Patient Status Non-Critical Patient 10/01/2018 2:28 PM EDT [facility] Blood BLOOD SPECIMEN / Unknown 10/01/2018 2:27 PM EDT 10/01/2018 2:28 PM EDT us Tabitha Paz MD POINT OF CARE TEST ORDERABLES Fi nal Result Performing Organization Address City/[facility]/[place] [address] * (ABNORMAL) GLUCOSE METER POC (10/01/2018 9:27 AM EDT) Glucose Meter POC 161(H) 70 - 100 mg/dL 10/01/2018 9:28 AM EDT [facility] Sample Type Capillary 10/01/2018 9:28 AM EDT [facility] Patient Status Non-Critical Patient 10/01/2018 9:28 AM EDT [facility] Blood BLOOD SPECIMEN / Unknown 10/01/2018 9:27 AM EDT 10/01/2018 9:28 AM EDT us Tabitha Paz MD POINT OF CARE TEST ORDERABLES Fi nal Result [facility] [address] [place] [address] * (ABNORMAL) GLUCOSE METER POC (09/30/2018 9:22 PM EDT) Glucose Meter POC 135(H) 70 - 100 mg/dL 09/30/2018 9:23 PM EDT [facility] Sample Type Capillary 09/30/2018 9:23 PM EDT [facility] Patient Status Non-Critical Patient 09/30/2018 9:23 PM EDT [facility] Blood BLOOD SPECIMEN / Unknown 09/30/2018 9:22 PM EDT 09/30/2018 9:23 PM EDT us Tabitha Paz MD POINT OF CARE TEST ORDERABLES Fi nal Result [facility] [address] [place] [address] * (ABNORMAL) GLUCOSE METER POC (09/30/2018 5:12 PM EDT) Glucose Meter POC 177(H) 70 - 100 mg/dL 09/30/2018 5:13 PM EDT [facility] Sample Type Capillary 09/30/2018 5:13 PM EDT [facility] Patient Status Non-Critical Patient 09/30/2018 5:13 PM EDT [facility] Blood BLOOD SPECIMEN / Unknown 09/30/2018 5:12 PM EDT 09/30/2018 5:13 PM EDT us Tabitha Paz MD POINT OF CARE TEST ORDERABLES Fi nal Result [facility] [address] [place] [phone] * (ABNORMAL) GLUCOSE METER POC (09/30/2018 12:56 PM EDT) Glucose Meter POC 140(H) 70 - 100 mg/dL 09/30/2018 12:57 PM EDT [facility] Sample Type Capillary 09/30/2018 12:57 PM EDT [facility] Patient Status Non-Critical Patient 09/30/2018 12:57 PM EDT [facility] Blood BLOOD SPECIMEN / Unknown 09/30/2018 12:56 PM EDT 09/30/2018 12:57 PM EDT Tabitha Paz MD POINT OF CARE TEST ORDERABLES Fi nal Result Performing Organization Address [facility] Co de Phone Number [place] [phone] * (ABNORMAL) GLUCOSE METER POC (09/30/2018 7:50 AM EDT) Glucose Meter POC 126(H) 70 - 100 mg/dL 09/30/2018 7:51 AM EDT [facility] Sample Type Capillary 09/30/2018 7:51 AM EDT [facility] Patient Status Non-Critical Patient 09/30/2018 7:51 AM EDT [facility] Blood BLOOD SPECIMEN / Unknown 09/30/2018 7:50 AM EDT 09/30/2018 7:51 AM EDT us Tabitha Paz MD POINT OF CARE TEST ORDERABLES Fi nal Result Performing Organization Address [facility]/ZIP Co de Phone Number [address] [address] * (ABNORMAL) GLUCOSE METER POC (09/29/2018 9:26 PM EDT) Glucose Meter POC 188(H) 70 - 100 mg/dL 09/29/2018 9:27 PM EDT [facility] Sample Type Capillary 09/29/2018 9:27 PM EDT [facility] Patient Status Non-Critical Patient 09/29/2018 9:27 PM EDT [facility] Blood BLOOD SPECIMEN / Unknown 09/29/2018 9:26 PM EDT 09/29/2018 9:27 PM EDT Tabitha Paz MD POINT OF CARE TEST ORDERABLES Fi nal Result Performing Organization Address [facility] [place] [address] * (ABNORMAL) GLUCOSE METER POC (09/29/2018 5:39 PM EDT) Glucose Meter POC 186(H) 70 - 100 mg/dL 09/29/2018 5:40 PM EDT [facility] Sample Type Capillary 09/29/2018 5:40 PM EDT [facility] Patient Status Non-Critical Patient 09/29/2018 5:40 PM EDT [facility] Blood BLOOD SPECIMEN / Unknown 09/29/2018 5:39 PM EDT 09/29/2018 5:40 PM EDT Tabitha Paz MD POINT OF CARE TEST ORDERABLES Fi nal Result Performing Organization Address [facility] [place] [address] * (ABNORMAL) COMPREHENSIVE METABOLIC PANEL (09/29/2018 1:07 PM EDT) Sodium 141 136 - 145 mmol/L 09/29/2018 1:39 PM EDT [facility] Potassium 4.6 3.5 - 5.0 mmol/L 09/29/2018 1:39 PM EDT [facility] Chloride 105 98 - 107 mmol/L 09/29/2018 1:39 PM EDT [facility] Total CO2 30(H) 22 - 29 mmol/L 09/29/2018 1:39 PM EDT [facility] Anion Gap 6(L) 7 - 16 mmol/L 09/29/2018 1:39 PM EDT [facility] Calcium 10.3 8.8 - 10.4 mg/dL 09/29/2018 1:39 PM EDT [facility] Glucose Lvl 83 82 - 100 mg/dL 09/29/2018 1:39 PM EDT [facility] BUN 22 8 - 23 mg/dL 09/29/2018 1:39 PM T [facility] Creatinine 1.30 0.51 - 1.30 mg/dL 09/29/2018 1:39 PM [facility] Albumin 4.4 3.2 - 4.6 gm/dL 09/29/2018 1:39 PM T [facility] Total Protein 7.7 6.4 - 8.3 gm/dL 09/29/2018 1:39 PM [facility] Bili Total 0.6 0.1 - 1.3 mg/dL 09/29/2018 1:39 PM [facility] ALT 10 <=41 IU/L 09/29/2018 1:39 PM [facility] AST 10 <=40 IU/L 09/29/2018 1:39 PM [facility] Alk Phos 145(H) 36 - 123 IU/L 09/29/2018 1:39 PM [facility] GFR Afr Am 49(L) >=60 mL/min/1.7 3 m2 09/29/2018 1:39 PM [facility] GFR Non Afr Am 43(L) >=60 mL/min/1.7 3 m2 09/29/2018 1:39 PM T [facility] Comment: This estimated GFR was calculated using CKD-EPI equation which is modified based on ethnicity for Non Americans and Americans. Both results are reported since it is not always possible to determine the patient's ethnicity. This equation should only be used for individuals 18 and older. It has not been validated for use with the elderly (>70 years), women, or in some racial or ethnic subgroups, such as Hispanics. The equation will be less accurate in people with differences in nutritional status or muscle mass. Blood VENOUS BLOOD / Unknown Venipuncture / Unknown 09/29/2018 1:07 PM EDT 09/29/2018 1:09 PM EDT us Jemima Swartz MD CHEMISTRY ORDERABLES Final Resu lt [facility] [address] [place], [place] [address] * CBC WITH DIFF (09/29/2018 1:07 PM EDT) WBC 6.5 4.0 - 11.0 x10(3)/mcL 09/29/2018 1:11 PM EDT [facility] RBC 3.97 3.80 - 5.10 x10(6)/mcL 09/29/2018 1:11 PM EDT [facility] Hgb 12.1 12.0 - 15.6 g/dL 09/29/2018 1:11 PM EDT [facility] Hct 36.4 35.7 - 45.9 % 09/29/2018 1:11 PM EDT [facility] MCV 91.8 82.5 - 99.8 fL 09/29/2018 1:11 PM EDT [facility] MCH 30.4 27.0 - 34.3 pg 09/29/2018 1:11 PM EDT [facility] MCHC 33.1 32.1 - 35.3 g/dL 09/29/2018 1:11 PM EDT [facility] RDW 14.7 11.5 - 15.0 % 09/29/2018 1:11 PM EDT [facility] Platelet 168 144 - 423 x10(3)/mcL 09/29/2018 1:11 PM EDT [facility] MPV 9.4 6.8 - 10.8 fL 09/29/2018 1:11 PM EDT [facility] Neut Percent 59.3 % 09/29/2018 1:11 PM EDT [facility] Lymph Percent 30.8 % 09/29/2018 1:11 PM EDT [facility] [place] Percent 5.8 % 09/29/2018 1:11 PM EDT [facility] Eos Percent 3.5 % 09/29/2018 1:11 PM EDT [facility] Baso Percent 0.6 % 09/29/2018 1:11 PM EDT [facility] Neut # 3.9 1.8 - 7.7 x10(3)/[facility] 09/29/2018 1:11 PM EDT [facility] Lymph # 2.0 0.6 - 4.8 x10(3)/[facility] 09/29/2018 1:11 PM EDT [facility] [place] # 0.4 0.0 - 1.3 x10(3)/[facility] 09/29/2018 1:11 PM EDT [facility] Eos# 0.2 0.0 - 0.5 x10(3)/[facility] 09/29/2018 1:11 PM EDT [facility] Baso # 0.0 0.0 - 0.2 x10(3)/[facility] 09/29/2018 1:11 PM EDT [facility] Blood VENOUS BLOOD / Unknown Venipuncture / Unknown 09/29/2018 1:07 PM EDT 09/29/2018 1:09 PM EDT us Jemima Swartz MD HEMATOLOGY ORDERABLES Final Res ult [facility] [address] [place] [address] documented in this encounter Visit Diagnoses Diagnosis Bilateral cellulitis of lower leg- Primary Cellulitis and abscess of leg, except foot Cellulitis of lower extremity, unspecified laterality Diabetes mellitus type 2 in obese Type II or unspecified type diabetes mellitus without mention of complication, not stated as uncontrolled Severe obesity (BMI 35.0-39.9) with comorbidity (HCC) Schizoaffective disorder, depressive type (HCC) Schizoaffective disorder, unspecified condition Falls, initial encounter Essential hypertension Unspecified essential hypertension Chronic diastolic heart failure (HCC) Chronic diastolic heart failure ASHD (arteriosclerotic heart disease) Coronary atherosclerosis of unspecified type of vessel, [place] or graft Osteopenia of multiple sites Mood disorder (HCC) Unspecified episodic mood disorder Intellectual disability Unspecified intellectual disabilities Hemiparesis affecting left side as late effect of stroke (HCC) Hemiplegia affecting unspecified side, late effect of cerebrovascular disease Recurrent major depressive disorder, in partial remission (HCC) Edema of both lower legs due to peripheral venous insufficiency documented in this encounter Administered Medications Inactive Administered Medications - up to 1 most recent administrations Medication Order MAR Action Action Date Dose Rate Site 0.45 % NaCl infusion Intravenous, at 100 mL/hr, CONTINUOUS, Starting on Wed10/03/18 at 1215, Until Wed10/04/18 at 1214 Rate/Dose Verify 10/04/2018 7:21 AM EDT 100 mL/hr 0.9 % NaCl infusion Intravenous, at 10 mL/hr, CONTINUOUS PRN, Starting on Wed10/05/18 at 2012, Until Wed10/07/18 at 0054, Used as needed for secondary medication administration. Do not discontinue primary IVF., Critical Care acetaminophen (TYLENOL) suppository 650 mg 650 mg, Rectal, EVERY 4 HOURS PRN, Starting on Wed10/05/18 at 2012, Until Wed10/07/18 at 0054, Pain, Fever, Temp greater than 102 F, Maximum adult dose of acetaminophen is 4000 mg from all sources in 24 hours. , Critical Care acetaminophen (TYLENOL) tablet 650 mg 650 mg, Oral, EVERY 4 HOURS PRN, Starting on Wed09/29/18 at 2035, Until Wed10/05/18 at 2030, Pain, Maximum adult dose of acetaminophen is 4000 mg from all sources in 24 hours. Given 10/03/2018 10:45 PM EDT 650 mg acetaminophen (TYLENOL) tablet 650 mg 650 mg, Oral, EVERY 4 HOURS PRN, Starting on Wed10/05/18 at 2012, Until Wed10/07/18 at 0054, Pain, Fever, Temp greater than 102 F, Maximum adult dose of acetaminophen is 4000 mg from all sources in 24 hours. , Critical Care amLODIPine (NORVASC) tablet 5 mg 5 mg, Oral, DAILY, First dose on Wed09/30/18 at 0900, Until Discontinued Given 10/06/2018 8:36 AM EDT 5 mg ARIPiprazole (ABILIFY) tablet 15 mg 15 mg, Oral, DAILY, First dose (after last modification) on Wed10/04/18 at 0900, Until Discontinued Given 10/06/2018 8:36 AM EDT 15 mg ARIPiprazole (ABILIFY) tablet 30 mg 30 mg, Oral, DAILY, First dose on Wed09/30/18 at 0900, Until Discontinued Given 10/03/2018 9:54 AM EDT 30 mg aspirin chewable tablet 81 mg 81 mg, Oral, DAILY, First dose on Wed09/30/18 at 0900, Until Discontinued Given 10/06/2018 8:36 AM EDT 81 mg atorvastatin (LIPITOR) tablet 20 mg 20 mg, Oral, NIGHTLY, First dose on Wed09/29/18 at 2215, Until Discontinued Given 10/05/2018 9:46 PM EDT 20 mg busPIRone (BUSPAR) tablet 5 mg 5 mg, Oral, 2 TIMES DAILY, First dose on Wed09/29/18 at 2215, Until Discontinued Given 10/06/2018 8:36 AM EDT 5 mg calcium carbonate-vitamin D 500 mg(1,250mg) -200 unit per tablet 1 Tab 1 Tablet, Oral, 2 TIMES DAILY, First dose on Wed09/29/18 at 2100, Until Discontinued Given 10/06/2018 8:36 AM EDT 1 Tablet clindamycin (CLEOCIN) 600 mg in 50 mL dextrose 5% IVBP 600 mg 600 mg, Intravenous, ONCE, 1 dose, On Wed09/29/18 at 2100, Administer over 30 Minutes IV Started 09/29/2018 10:16 PM EDT 600 mg 100 mL/hr clindamycin (CLEOCIN) injection 600 mg 600 mg, Intramuscular, ONCE, 1 dose, On Wed09/29/18 at 1345 Given 09/29/2018 2:11 PM EDT 600 mg Right Upper Outer Quadrant clopidogrel (PLAVIX) tablet 75 mg 75 mg, Oral, DAILY, First dose on Wed09/30/18 at 0900, Until Discontinued Given 10/06/2018 8:37 AM EDT 75 mg dextrose 50 % solution 25 mL 25 mL, Intravenous, PRN, Starting on Wed10/05/18 at 2013, Until Wed10/07/18 at 0054, Low blood sugar, If FSBS less than 70 mg/dl and patient cannot take orally, Check FSBS every 30 minutes and repeat 25 mL of D50 IV push and notify physician if FSBS less than 70 mg/dL VESICANT , Critical Care diphenhydrAMINE (BENADRYL) tablet 25 mg 25 mg, Oral, NIGHTLY PRN, Starting on Wed09/29/18 at 2046, Until Wed10/07/18 at 0054, Sleep, if trazodone and melatonin dont work Given 09/30/2018 2:13 AM EDT 25 mg doxycycline (VIBRAMYCIN) 100 mg in dextrose 5% 250 mL IVPB 100 mg, Intravenous, EVERY 12 HOURS SCHEDULED (2 times per day), 14 doses, First dose on Francine 09/29/18 at 2230, Last dose on Wed10/06/18 at 0900, Administer over 1 Hours IV Started 10/02/2018 11:07 AM EDT 100 mg 250 mL/hr doxycycline hyclate (VIBRA-TABS) tablet 100 mg 100 mg, Oral, EVERY 12 HOURS SCHEDULED (2 times per day), 8 doses, First dose on Wed10/02/18 at 2100, Last dose on Wed10/06/18 at 0900 Given 10/06/2018 8:37 AM EDT 100 mg enoxaparin (LOVENOX) injection 40 mg 40 mg, Subcutaneous, DAILY - LMWH/Xa, First dose on Francine 09/29/18 at 2230, Until Discontinued Given 10/06/2018 12:34 PM EDT 40 mg Abdominal Tissue ferrous sulfate tablet 325 mg 325 mg, Oral, 2 TIMES DAILY WITH MEALS, First dose on Francine 09/29/18 at 2215, Until Discontinued, Take with food other than cereals, dietary fiber, tea, coffee, eggs, or milk. Provides 65 mg of elemental iron. Do not crush. Given 10/06/2018 5:41 PM EDT 325 mg fish oil omega 3-dha-epa capsule 1 g 1 g, Oral, 2 TIMES DAILY, First dose on Wed09/29/18 at 2215, Until Discontinued Given 10/06/2018 8:36 AM EDT 1 g gabapentin (NEURONTIN) capsule 200 mg 200 mg, Oral, 4 TIMES DAILY, First dose on Wed09/29/18 at 2215, Until Discontinued Given 10/06/2018 5:41 PM EDT 200 mg glipiZIDE (GLUCOTROL) tablet 10 mg 10 mg, Oral, 2 TIMES DAILY, First dose on Wed09/29/18 at 2215, Until Discontinued, Hold if NPO. Given 10/06/2018 8:36 AM EDT 10 mg glucagon (human recombinant) (GLUCAGEN) injection 1 mg 1 mg, Intramuscular, PRN, Starting on Wed10/05/18 at 2013, Until Wed10/07/18 at 0054, Low blood sugar, If FSBS less than 70 mg/dl, patient cannot take orally and without IV access, If patient is without IV access, give Glucagon 1 mg Intramuscularly, insert IV and call physician., Critical Care ICU Electrolyte Replacement - Calcium 1 Each, MISCELLANEOUS, PRN, Starting on Wed10/05/18 at 2012, Until Wed10/07/18 at 0054, Hypocalcemia, Reference Range for Ionized Calcium 1.12 - 1.32 mmol/dL - If ionized calcium less than (<) 1.12 mmol/dL, refer to Electrolyte Protocol link for replacement orders. - Recheck serum ionized calcium at least 6 hours after being replaced or with next labs as if concentration greater than 0.9 mmol/dL prior to replacement. - DO NOT GIVE calcium if phosphorus is greater than 6 mg/dL. - Check ionized calcium if serum calcium is less than 8 mg/dL. - If ionized calcium is below 1 mmol/dL, check serum magnesium. - If calcium remains low after replacement, consider checking Vit D 25-hydroxy concentration. - Calcium should not be infused in the same IV catheter as phosphate. - Discontinue this order when patient is transferred out of ICU., Critical Care ICU Electrolyte Replacement - Magnesium 1 Each, MISCELLANEOUS, PRN, Starting on Wed10/05/18 at 2012, Until Wed10/07/18 at 0054, Hypomagnesemia, Reference Range 1.6 - 2.4 mg/dL - If magnesium less than (<) 1.6 mg/dL, refer to Electrolyte Protocol link for replacement orders. - Recheck serum magnesium concentration at least 6 hours after being replaced or with next labs as long as concentration greater than 1 mg/dL prior to replacement. - Discontinue this order when patient is transferred out of ICU., Critical Care ICU Electrolyte Replacement - Phosphate 1 Each, MISCELLANEOUS, PRN, Starting on Wed10/05/18 at 2012, Until Wed10/07/18 at 0054, Hypophosphatemia, Reference Range 2.5 - 4.5 mg/dL - If phosphorus less than (<) 2.6 mg/dL, refer to Electrolyte Protocol link for replacement orders. - Recheck serum phosphorus concentration 6 hours after infusion or 6 hours after the last dose of oral phosphorus is given. - Use with caution in patients with hypocalcemia. - Discontinue this order when patient is transferred out of ICU., Critical Care ICU Electrolyte Replacement - Potassium 1 Each, MISCELLANEOUS, PRN, Starting on Wed10/05/18 at 2012, Until Wed10/07/18 at 4, Hypokalemia, Reference Range 3.5 - 5 mmol/dL - If potassium less than (<) 3.5 mmol/dL, refer to Electrolyte Protocol link for replacement orders. - Recheck serum potassium concentration at least 2 hours after replaced or with next labs as long as concentration greater than 3 mmol/dL prior to replacement. - If pain or phlebitis occur with parenteral infusion, reduce rate by half. - Check ionized calcium and magnesium if hypokalemia persists despite adequate supplementation. - Discontinue this order when patient is transferred out of ICU., Critical Care insulin aspart U-100 (NovoLOG) injection 1-10 Units 1-10 Units, Subcutaneous, 4 TIMES DAILY WITH MEALS, 4 doses, First dose on Wed09/29/18 at 1800, Last dose on Wed09/30/18 at 1200, Interim Insulin FSBS Correction NPO/Bedtime 150-200 2 units 1 unit 201-250 4 units 2 units 251-300 6 units 3 units 301-350 8 units 4 units Greater than 350__10 units call MD __5 units call MD Notify MD if patient's blood sugar is below 70 or over 350 Waste Sort Code = BKC Given 09/29/2018 10:05 PM EDT 1 Units Left Arm insulin aspart U-100 (NovoLOG) injection 1-10 Units 1-10 Units, Subcutaneous, 4 TIMES DAILY WITH MEALS, First dose on Wed09/30/18 at 2100, Until Discontinued, Medium dose algorithm: FSBS Correction NPO/Bedtime 121-149 1 units 0 units 150-199 2 units 1 units 200-250 4 units 2 units 251-300 6 units 3 units 301-350 8 units 4 units Greater than 350__10 units call MD _5 units call MD Notify physician if FSBS less than 50 or greater than 350. Do not use NPO dosing If patient receiving TPN or tube feeds. Correction insulin doses must be by at least 3 hours. Waste Sort Code = BKC Given 10/06/2018 12:33 PM EDT 4 Units Left Arm insulin glargine U-100 (LANTUS) injection 35 Units 35 Units, Subcutaneous, EVERY EVENING (INSULIN), First dose on Wed09/29/18 at 2215, Until Discontinued, Waste Sort Code = BKC Given 10/06/2018 6:59 PM EDT 35 Units Right Arm isosorbide mononitrate (IMDUR) CR tablet 120 mg 120 mg, Oral, DAILY, First dose on Wed09/30/18 at 0900, Until Discontinued Given 10/06/2018 8:37 AM EDT 120 mg lamoTRIgine (LaMICtal) tablet 100 mg 100 mg, Oral, NIGHTLY, First dose on Wed09/29/18 at 2230, Until Discontinued Given 10/05/2018 9:48 PM EDT 100 mg lamoTRIgine (LaMICtal) tablet 50 mg 50 mg, Oral, DAILY, First dose on Wed09/30/18 at 0900, Until Discontinued Given 10/06/2018 8:37 AM EDT 50 mg melatonin tablet 10 mg 10 mg, Oral, NIGHTLY, First dose on Wed10/04/18 at 2100, Until Discontinued Given 10/05/2018 9:48 PM EDT 10 mg melatonin tablet 5 mg 5 mg, Oral, NIGHTLY, First dose on Wed09/29/18 at 2215, Until Discontinued Given 10/03/2018 8:27 PM EDT 5 mg metFORMIN XR (GLUCOPHAGE-XR) tablet 500 mg 500 mg, Oral, DAILY WITH MEAL, First dose on Wed09/30/18 at 0800, Until Discontinued, Take with food. Given 10/02/2018 10:57 AM EDT 500 mg miconazole (MICATIN) 2 % powder Topical, EVERY 12 HOURS SCHEDULED (2 times per day), 84 doses, First dose on Wed10/05/18 at 1300, Last dose on Wed11/15/18 at 2100, Application site: ananya-area, abd folds Given 10/06/2018 8:35 AM EDT miconazole (MICATIN) 2 % powder Topical, PRN, Starting on Wed10/05/18 at 1115, Until Wed10/07/18 at 0054, Wound Care, Application site: abd folds, ananya-area nitroGLYCERIN (NITROSTAT) SL tablet 0.4 mg 0.4 mg, Sublingual, EVERY 5 MIN PRN, Starting on Wed10/05/18 at 2013, Until Wed10/07/18 at 0054, Chest pain, May give up to three (3) doses. Call MD after 3rd dose Administer for angina/chest pain prior to administration of analgesics for angina., Critical Care oxybutynin (DITROPAN) tablet 5 mg 5 mg, Oral, 2 TIMES DAILY, First dose on Wed09/30/18 at 0900, Until Discontinued, Therapeutic Interchange for oxybutynin XL 10mg tab Daily Given 10/06/2018 8:38 AM EDT 5 mg pantoprazole (PROTONIX) tablet 40 mg 40 mg, Oral, DAILY, First dose on Wed09/30/18 at 0900, Until Discontinued, Do not crush or chew Given 10/03/2018 9:55 AM EDT 40 mg QUEtiapine (SEROquel) tablet 100 mg 100 mg, Oral, NIGHTLY, First dose on Wed09/29/18 at 2215, Until Discontinued Given 10/05/2018 9:49 PM EDT 100 mg ranolazine (RANEXA) SR tablet 1,000 mg 1,000 mg, Oral, 2 TIMES DAILY, First dose (after last modification) on Wed10/01/18 at 2100, Until Discontinued Given 10/06/2018 8:38 AM EDT 1,000 mg ranolazine (RANEXA) SR tablet 500 mg 500 mg, Oral, 2 TIMES DAILY, First dose on Wed09/29/18 at 2100, Until Discontinued Given 10/01/2018 8:58 AM EDT 500 mg Saccharomyces boulardii (FLORASTOR) capsule 250 mg 250 mg, Oral, 2 TIMES DAILY, First dose on Wed09/29/18 at 2215, Until Discontinued Given 10/06/2018 8:38 AM EDT 250 mg sertraline (ZOLOFT) tablet 100 mg 100 mg, Oral, DAILY, First dose (after last modification) on Wed10/04/18 at 0900, Until Discontinued Given 10/06/2018 8:38 AM EDT 100 mg sertraline (ZOLOFT) tablet 200 mg 200 mg, Oral, DAILY, First dose on Wed09/30/18 at 0900, Until Discontinued Given 10/03/2018 9:57 AM EDT 200 mg sodium chloride 0.9% IV line flush 20-50 mL 20-50 mL, Intravenous, at 150-600 mL/hr, PRN, Starting on Wed09/29/18 at 2212, Until Wed10/07/18 at 0054, Line Care, Flush with a minimum of 20 mL after IVPB to insure complete administration of the dose. May use the saline infusion to back flush IVPB tubing as needed. IV Started 10/02/2018 11:06 AM EDT 50 mL 150 mL/hr sodium chloride 0.9% syringe Intravenous, EVERY 8 HOURS SCHEDULED (3 times per day), First dose on Wed09/29/18 at 2345, Until Discontinued, Flush with 3-5 mL saline for PERIPHERAL saline lock maintenance. Given 10/06/2018 2:22 PM EDT 10 mL sodium chloride 0.9% syringe Intravenous, PRN, Starting on Wed09/29/18 at 2212, Until Wed10/07/18 at 0054, Line Care, Flush with 5-10 mL saline pre/post IVP, and 5 mL prior to IVPB or blood product administration. sterile water injection 1 mL 1 mL, Injection, PRN, Starting on Wed10/05/18 at 2013, Until Wed10/07/18 at 0054, Use for drug dilution, Use to dilute and administer glucagon injection, Critical Care sucralfate (CARAFATE) 100 mg/mL suspension 1 g 1 g, Oral, 4 TIMES DAILY BEFORE MEALS & NIGHTLY, First dose on Wed09/29/18 at 2215, Until Discontinued, Hold enteral feeding 1 hour before and 1 hour after administration Given 10/03/2018 6:26 PM EDT 1 g traMADol (ULTRAM) tablet 50 mg 50 mg, Oral, EVERY 6 HOURS PRN, Starting on Wed10/03/18 at 2359, Until Wed10/07/18 at 0054, Pain Unrelieved by Oral Non-Opioid Therapy Given 10/05/2018 9:27 AM EDT 50 mg traZODone (DESYREL) tablet 150 mg 150 mg, Oral, NIGHTLY, First dose on Francine 09/29/18 at 2215, Until Discontinued, Take shortly after a meal or light snack. Given 10/02/2018 8:39 PM EDT 150 mg documented in this encounter Discontinued Medications Medication Sig Discontinue Reason Start Date End Da te doxycycline (ADOXA) 100 mg Oral Tablet Take 1 Tab by mouth 2 times daily for 7 days. Stop Taking at Discharge 09/29/2018 10/06/2018 cephALEXin (KEFLEX) 500 mg Oral Capsule Take 1 Cap by mouth 4 times daily for 7 days. Stop Taking at Discharge 09/29/2018 10/06/2018 acetaminophen 325 mg Oral Tab Take 650 mg by mouth every 4 hours as needed for Pain. Pt takes 1 to 2 tabs as needed Stop Taking at Discharge 10/06/2018 ARIPiprazole (ABILIFY) 30 mg Oral Tablet Take 1 Tab by mouth daily. Stop Taking at Discharge 02/23/2017 10/06/2018 Melatonin 3 mg Oral Tablet Take 5 mg by mouth nightly. Stop Taking at Discharge 10/06/2018 traZODone (DESYREL) 50 mg Oral Tablet Take 3 Tabs by mouth nightly. Stop Taking at Discharge 07/12/2018 10/06/2018 loperamide (IMODIUM) 2 mg Oral Capsule Take 2 mg by mouth 2 times daily. Stop Taking at Discharge 10/06/2018 documented as of this encounter Active and Recently Administered Medications Times are shown in EDT. Scheduled Medication Order 10/04/2018 10/05/2018 10/06/2018 amLODIPine (NORVASC) tablet 5 mg 5 mg, Oral, DAILY, First dose on Wed09/30/18 at 0900, Until Discontinued 0903 (Given - Provider: Rosalie Epps RN) 0928 (Given - Provider: Rosalie Epps RN) 0836 (Given - Provider: Jackeline Nance RN) ARIPiprazole (ABILIFY) tablet 15 mg 15 mg, Oral, DAILY, First dose (after last modification) on Wed10/04/18 at 0900, Until Discontinued 902 (Given - Provider: Rosalie Epps RN) 925 (Given - Provider: Rosalie Epps RN) 08 (Given - Provider: Jackeline Nance RN) aspirin chewable tablet 81 mg 81 mg, Oral, DAILY, First dose on Wed09/30/18 at 0900, Until Discontinued 910 (Given - Provider: Rosalie Epps RN) 926 (Given - Provider: Rosalie Epps RN) 08 (Given - Provider: Jackeline Nance RN) atorvastatin (LIPITOR) tablet 20 mg 20 mg, Oral, NIGHTLY, First dose on Wed09/29/18 at 2215, Until Discontinued 2034 (Given - Provider: Kandice Davidson RN) 2145 (Given - Provider: Melisa Winters) busPIRone (BUSPAR) tablet 5 mg 5 mg, Oral, 2 TIMES DAILY, First dose on Wed09/29/18 at 2215, Until Discontinued 902 (Given - Provider: Rosalie Epps RN)2034 (Given - Provider: Kandice Davidson RN) 925 (Given - Provider: Rosalie Epps RN)2145 (Given - Provider: Melisa Winters) 835 (Given - Provider: Jackeline Nance RN) calcium carbonate-vitamin D 500 mg(1,250mg) -200 unit per tablet 1 Tab 1 Tablet, Oral, 2 TIMES DAILY, First dose on Wed09/29/18 at 2100, Until Discontinued 903 (Given - Provider: Rosalie Epps RN)2035 (Given - Provider: Kandice Davidson RN) 925 (Given - Provider: Rosalie Epps RN)2146 (Given - Provider: Melisa Winters) 835 (Given - Provider: Jackeline Nance RN) clopidogrel (PLAVIX) tablet 75 mg 75 mg, Oral, DAILY, First dose on Wed09/30/18 at 0900, Until Discontinued 902 (Given - Provider: Rosalie Epps RN) 925 (Given - Provider: Rosalie Epps RN) 0837 (Given - Provider: Jackeline Nance RN) doxycycline hyclate (VIBRA-TABS) tablet 100 mg (COMPLETED) 100 mg, Oral, EVERY 12 HOURS SCHEDULED (2 times per day), 8 doses, First dose on Wed10/02/18 at 2100, Last dose on Wed10/06/18 at 0900 0904 (Given - Provider: Rosalie Epps RN)2032 (Given - Provider: Kandice Davidson RN) 09 (Given - Provider: Rosalie Epps RN)2146 (Given - Provider: Melisa Winters) 08 (Given - Provider: Jackeline Nance RN) enoxaparin (LOVENOX) injection 40 mg 40 mg, Subcutaneous, DAILY - LMWH/Xa, First dose on Wed09/29/18 at 2230, Until Discontinued 1241 (Given - Provider: Rosalie Epps RN) 1315 (Given - Provider: Rosalie Epps RN) 1234 (Given - Provider: Jackeline Nance RN) ferrous sulfate tablet 325 mg 325 mg, Oral, 2 TIMES DAILY WITH MEALS, First dose on Wed09/29/18 at 2215, Until Discontinued, Take with food other than cereals, dietary fiber, tea, coffee, eggs, or milk. Provides 65 mg of elemental iron. Do not crush. 0903 (Given - Provider: Rosalie Epps RN)170 (Given - Provider: Kaylene Gonzalez RN) 09 (Given - Provider: Rosalie Epps RN)182 (Given - Provider: Birdie Frances RN) 0836 (Given - Provider: Jackeline Nance RN)174 (Given - Provider: Jackeline Nance RN) fish oil omega 3-dha-epa capsule 1 g 1 g, Oral, 2 TIMES DAILY, First dose on Wed09/29/18 at 2215, Until Discontinued 09 (Given - Provider: Rosalie Epps RN)2035 (Given - Provider: Kandice Davidson RN) 09 (Given - Provider: Rosalie Epps RN)2146 (Given - Provider: Melisa Winters) 0836 (Given - Provider: Jackeline Nance RN) gabapentin (NEURONTIN) capsule 200 mg 200 mg, Oral, 4 TIMES DAILY, First dose on Wed09/29/18 at 2215, Until Discontinued 0911 (Given - Provider: Rosalie Epps RN)1241 (Given - Provider: Rosalie Epps RN)1701 (Given - Provider: Kaylene Gonzalez RN)2052 (Given - Provider: Kandice Davidson RN) 0927 (Given - Provider: Rosalie Epps RN)1315 (Given - Provider: Rosalie Epps RN)1630 (Given - Provider: Kaylene Gonzalez RN)215 (Given - Provider: Melisa Winters) 0837 (Given - Provider: Jackeline Nance RN)1235 (Given - Provider: Jackeline Nance RN)1741 (Given - Provider: Jackeline Nance RN) glipiZIDE (GLUCOTROL) tablet 10 mg 10 mg, Oral, 2 TIMES DAILY, First dose on Wed09/29/18 at 2215, Until Discontinued, Hold if NPO. 0903 (Given - Provider: Rosalie Epps RN)203 (Given - Provider: Kandice Davidson RN) 0926 (Given - Provider: Rosalie Epps RN)214 (Given - Provider: Melisa Winters) 0836 (Given - Provider: Jackeline Nance RN) insulin aspart U-100 (NovoLOG) injection 1-10 Units 1-10 Units, Subcutaneous, 4 TIMES DAILY WITH MEALS, First dose on Wed09/30/18 at 2100, Until Discontinued, Medium dose algorithm: FSBS Correction NPO/Bedtime 121-149 1 units 0 units 150-199 2 units 1 units 200-250 4 units 2 units 251-300 6 units 3 units 301-350 8 units 4 units Greater than 350__10 units call MD _5 units call MD Notify physician if FSBS less than 50 or greater than 350. Do not use NPO dosing If patient receiving TPN or tube feeds. Correction insulin doses must be by at least 3 hours. Waste Sort Code = [facility] 0800 (Hold - Provider: Rosalie Epps RN - Reason: Order parameters not met)1241 (Given - Provider: Rosalie Epps RN)1703 (Given - Provider: Kaylene Gonzalez RN - Comment: verfied with lonny)2202 (Given - Provider: Kandice Davidson RN) 0925 (Given - Provider: Rosalie Epps RN)1217 (Given - Provider: Jada Miller, ROLF)182 (Given - Provider: Birdie Frances RN - Comment: [id number] verified w/fr rn)2100 (Not Given - Provider: Melisa Winters - Reason: Order parameters not met) 0823 (Not Given - Provider: Jackeline Nance RN - Reason: Order parameters not met - Comment: [phone] (Given - Provider: Jackeline Nance RN - Comment: [phone] (Not Given - Provider: Jackeline Nance RN - Reason: Order parameters not met - Comment: 93) insulin glargine U-100 (LANTUS) injection 35 Units 35 Units, Subcutaneous, EVERY EVENING (INSULIN), First dose on Francine 09/29/18 at 2215, Until Discontinued, Waste Sort Code = [facility] 1844 (Given - Provider: Kaylene Gonzalez RN) 2028 (Given - Provider: Melisa Winters) 185 (Given - Provider: Jackeline Nance, ROLF) isosorbide mononitrate (IMDUR) CR tablet 120 mg 120 mg, Oral, DAILY, First dose on Wed09/30/18 at 0900, Until Discontinued 902 (Given - Provider: Rosalie Epps RN) 09 (Given - Provider: Rosalie Epps RN) 08 (Given - Provider: Jackleine Nance, ROLF) lamoTRIgine (LaMICtal) tablet 100 mg(Linked Group 1) 100 mg, Oral, NIGHTLY, First dose on Wed09/29/18 at 2230, Until Discontinued 2033 (Given - Provider: Kandice Davidson RN) 2147 (Given - Provider: Melisa Winters) lamoTRIgine (LaMICtal) tablet 50 mg(Linked Group 1) 50 mg, Oral, DAILY, First dose on Wed09/30/18 at 0900, Until Discontinued 902 (Given - Provider: Rosalie Epps RN) 926 (Given - Provider: Rosalie Epps RN) 08 (Given - Provider: Jackeline Nance RN) melatonin tablet 10 mg 10 mg, Oral, NIGHTLY, First dose on Wed10/04/18 at 2100, Until Discontinued 2033 (Given - Provider: Kandice Davidson RN) 2147 (Given - Provider: Melisa Winters) miconazole (MICATIN) 2 % powder Topical, EVERY 12 HOURS SCHEDULED (2 times per day), 84 doses, First dose on Wed10/05/18 at 1300, Last dose on Wed11/15/18 at 2100, Application site: ananya-area, abd folds 1631 (Given - Provider: Kaylene Gonzalez RN)2144 (Given - Provider: Melisa Winters) 0835 (Given - Provider: Jackeline Nance RN) oxybutynin (DITROPAN) tablet 5 mg 5 mg, Oral, 2 TIMES DAILY, First dose on Wed09/30/18 at 0900, Until Discontinued, Therapeutic Interchange for oxybutynin XL 10mg tab Daily 903 (Given - Provider: Rosalie Epps RN)2033 (Given - Provider: Kandice Davidson RN) 926 (Given - Provider: Rosalie Epps RN)2148 (Given - Provider: Melisa Winters) 0838 (Given - Provider: Jackeline Nance RN) QUEtiapine (SEROquel) tablet 100 mg 100 mg, Oral, NIGHTLY, First dose on Wed09/29/18 at 2215, Until Discontinued 2032 (Given - Provider: Kandice Davidson RN) 2148 (Given - Provider: Melisa Winters) ranolazine (RANEXA) SR tablet 1,000 mg 1,000 mg, Oral, 2 TIMES DAILY, First dose (after last modification) on Wed10/01/18 at 2100, Until Discontinued 902 (Given - Provider: Rosalie Epps RN)2035 (Given - Provider: Kandice Davidson RN) 926 (Given - Provider: Rosalie Epps RN)2148 (Given - Provider: Melisa Winters) 0838 (Given - Provider: Jackeline Nance, ROLF) Saccharomyces boulardii (FLORASTOR) capsule 250 mg 250 mg, Oral, 2 TIMES DAILY, First dose on Francine 09/29/18 at 2215, Until Discontinued 902 (Given - Provider: Rosalie Epps RN)2034 (Given - Provider: Kandice Davidson RN) 926 (Given - Provider: Rosalie Epps RN)2149 (Given - Provider: Melisa Winters) 08 (Given - Provider: Jackeline Nance RN) sertraline (ZOLOFT) tablet 100 mg 100 mg, Oral, DAILY, First dose (after last modification) on Wed10/04/18 at 0900, Until Discontinued 902 (Given - Provider: Rosalie Epps RN) 926 (Given - Provider: Rosalie Epps RN) 0838 (Given - Provider: Jackeline Nance RN) sodium chloride 0.9% syringe Intravenous, EVERY 8 HOURS SCHEDULED (3 times per day), First dose on Francine 09/29/18 at 2345, Until Discontinued, Flush with 3-5 mL saline for PERIPHERAL saline lock maintenance. 0607 (Not Given - Provider: Shona Palm RN - Reason: IV Infusing)1246 (Given - Provider: Rosalie Epps RN)1400 (Canceled Entry - Provider: Rosalie Epps RN)215 (Given - Provider: Kandice Davidson RN) 0655 (Given - Provider: Kandice Davidson RN)1318 (Not Given - Provider: Rosalie Epps RN - Reason: Loss of IV access)1400 (Canceled Entry - Provider: Rosalie Epps RN)2230 (Given - Provider: Melisa Winters - Comment: forgot to scan) 0535 (Given - Provider: Melisa Winters)1422 (Given - Provider: Jackeline Nance RN) sucralfate (CARAFATE) 100 mg/mL suspension 1 g 1 g, Oral, 4 TIMES DAILY BEFORE MEALS & NIGHTLY, First dose on Francine 09/29/18 at 2215, Until Discontinued, Hold enteral feeding 1 hour before and 1 hour after administration 0607 (Not Given - Provider: Shona Palm RN - Reason: Patient/family declined)1030 (Not Given - Provider: Rosalie Epps RN - Reason: Patient/family declined)1538 (Not Given - Provider: Kaylene Gonzalez RN - Reason: Patient/family declined)2100 (Not Given - Provider: Kandice Davidson RN - Reason: Patient/family declined) 0600 (Not Given - Provider: Kandice Davidson RN - Reason: Patient/family declined)1030 (Hold - Provider: Rosalie Epps RN - Reason: Patient/family declined)1630 (Not Given - Provider: Kaylene Gonzalez RN - Reason: Patient/family declined)2145 (Not Given - Provider: Melisa Winters - Reason: Patient/family declined) 0600 (Not Given - Provider: Melisa Winters - Reason: Patient/family declined)0930 (Not Given - Provider: Jackeline Nance RN - Reason: Patient/family declined)1530 (Not Given - Provider: Jackeline Nance RN - Reason: Patient/family declined) Continuous Medication Order 10/04/2018 10/05/2018 10/06/2018 0.45 % NaCl infusion (CANCELED) Intravenous, at 100 mL/hr, CONTINUOUS, Starting on Wed10/03/18 at 1215, Until Wed10/04/18 at 1214 0627 (New Bag - Provider: Shona Palm RN)0721 (Rate/Dose Verify - Provider: Rosalie Epps, ROLF)1244 (Stopped - Provider: Rosalie Epps RN) PRN Medication Order 10/04/2018 10/05/2018 10/06/2018 0.9 % NaCl infusion Intravenous, at 10 mL/hr, CONTINUOUS PRN, Starting on Wed10/05/18 at 2013, Until Wed10/07/18 at 0054, Used as needed for secondary medication administration. Do not discontinue primary IVF., Critical Care 1842 (IV Stopped by Other - Provider: Jackeline Nance RN - Comment: stopped prior to this shift by other RN) acetaminophen (TYLENOL) suppository 650 mg(Linked Group 2) 650 mg, Rectal, EVERY 4 HOURS PRN, Starting on Wed10/05/18 at 2012, Until Wed10/07/18 at 0054, Pain, Fever, Temp greater than 102 F, Maximum adult dose of acetaminophen is 4000 mg from all sources in 24 hours. , Critical Care acetaminophen (TYLENOL) tablet 650 mg(Linked Group 2) 650 mg, Oral, EVERY 4 HOURS PRN, Starting on Wed10/05/18 at 2012, Until Wed10/07/18 at 0054, Pain, Fever, Temp greater than 102 F, Maximum adult dose of acetaminophen is 4000 mg from all sources in 24 hours. , Critical Care dextrose 50 % solution 25 mL 25 mL, Intravenous, PRN, Starting on Wed10/05/18 at 2012, Until Wed10/07/18 at 0054, Low blood sugar, If FSBS less than 70 mg/dl and patient cannot take orally, Check FSBS every 30 minutes and repeat 25 mL of D50 IV push and notify physician if FSBS less than 70 mg/dL VESICANT , Critical Care diphenhydrAMINE (BENADRYL) tablet 25 mg 25 mg, Oral, NIGHTLY PRN, Starting on Wed09/29/18 at 2046, Until Wed10/07/18 at 0054, Sleep, if trazodone and melatonin dont work glucagon (human recombinant) (GLUCAGEN) injection 1 mg(Linked Group 3) 1 mg, Intramuscular, PRN, Starting on Wed10/05/18 at 2012, Until Wed10/07/18 at 0054, Low blood sugar, If FSBS less than 70 mg/dl, patient cannot take orally and without IV access, If patient is without IV access, give Glucagon 1 mg Intramuscularly, insert IV and call physician., Critical Care ICU Electrolyte Replacement - Calcium 1 Each, MISCELLANEOUS, PRN, Starting on Wed10/05/18 at 2012, Until Wed10/07/18 at 0054, Hypocalcemia, Reference Range for Ionized Calcium 1.12 - 1.32 mmol/dL - If ionized calcium less than (<) 1.12 mmol/dL, refer to Electrolyte Protocol link for replacement orders. - Recheck serum ionized calcium at least 6 hours after being replaced or with next labs as if concentration greater than 0.9 mmol/dL prior to replacement. - DO NOT GIVE calcium if phosphorus is greater than 6 mg/dL. - Check ionized calcium if serum calcium is less than 8 mg/dL. - If ionized calcium is below 1 mmol/dL, check serum magnesium. - If calcium remains low after replacement, consider checking Vit D 25-hydroxy concentration. - Calcium should not be infused in the same IV catheter as phosphate. - Discontinue this order when patient is transferred out of ICU., Critical Care ICU Electrolyte Replacement - Magnesium 1 Each, MISCELLANEOUS, PRN, Starting on Wed10/05/18 at 2012, Until Wed10/07/18 at 0054, Hypomagnesemia, Reference Range 1.6 - 2.4 mg/dL - If magnesium less than (<) 1.6 mg/dL, refer to Electrolyte Protocol link for replacement orders. - Recheck serum magnesium concentration at least 6 hours after being replaced or with next labs as long as concentration greater than 1 mg/dL prior to replacement. - Discontinue this order when patient is transferred out of ICU., Critical Care ICU Electrolyte Replacement - Phosphate 1 Each, MISCELLANEOUS, PRN, Starting on Wed10/05/18 at 2012, Until Wed10/07/18 at 0054, Hypophosphatemia, Reference Range 2.5 - 4.5 mg/dL - If phosphorus less than (<) 2.6 mg/dL, refer to Electrolyte Protocol link for replacement orders. - Recheck serum phosphorus concentration 6 hours after infusion or 6 hours after the last dose of oral phosphorus is given. - Use with caution in patients with hypocalcemia. - Discontinue this order when patient is transferred out of ICU., Critical Care ICU Electrolyte Replacement - Potassium 1 Each, MISCELLANEOUS, PRN, Starting on Wed10/05/182012, Until Wed10/07/18 at 0054, Hypokalemia, Reference Range 3.5 - 5 mmol/dL - If potassium less than (<) 3.5 mmol/dL, refer to Electrolyte Protocol link for replacement orders. - Recheck serum potassium concentration at least 2 hours after replaced or with next labs as long as concentration greater than 3 mmol/dL prior to replacement. - If pain or phlebitis occur with parenteral infusion, reduce rate by half. - Check ionized calcium and magnesium if hypokalemia persists despite adequate supplementation. - Discontinue this order when patient is transferred out of ICU., Critical Care miconazole (MICATIN) 2 % powder Topical, PRN, Starting on Wed10/05/18 at 1115, Until Wed10/07/18 at 0054, Wound Care, Application site: abd folds, ananya-area nitroGLYCERIN (NITROSTAT) SL tablet 0.4 mg 0.4 mg, Sublingual, EVERY 5 MIN PRN, Starting on Wed10/05/18 at 2012, Until Wed10/07/18 at 005, Chest pain, May give up to three (3) doses. Call MD after 3rd dose Administer for angina/chest pain prior to administration of analgesics for angina., Critical Care sodium chloride 0.9% IV line flush 20-50 mL 20-50 mL, Intravenous, at 150-600 mL/hr, PRN, Starting on Francine 09/29/18 at 2212, Until Wed10/07/18 at 005, Line Care, Flush with a minimum of 20 mL after IVPB to insure complete administration of the dose. May use the saline infusion to back flush IVPB tubing as needed. sodium chloride 0.9% syringe Intravenous, PRN, Starting on Francine 09/29/18 at 2212, Until Wed10/07/18 at 0054, Line Care, Flush with 5-10 mL saline pre/post IVP, and 5 mL prior to IVPB or blood product administration. sterile water injection 1 mL(Linked Group 3) 1 mL, Injection, PRN, Starting on Wed10/05/18 at 2012, Until Wed10/07/18 at 005, Use for drug dilution, Use to dilute and administer glucagon injection, Critical Care traMADol (ULTRAM) tablet 50 mg 50 mg, Oral, EVERY 6 HOURS PRN, Starting on Wed10/03/18 at 2359, Until Wed10/07/18 at 005, Pain Unrelieved by Oral Non-Opioid Therapy 0009 (Given - Provider: Shona Palm, ROLF)1538 (Given - Provider: Kaylene Gonzalez, ROLF)8776 (Given - Provider: Kandice Davidson RN) 0926 (Given - Provider: Rosalie Epps RN) Linked Groups Order Group 1: lamoTRIgine (LaMICtal) tablet 50 mgJump to med 50 mg, Oral, DAILY, First dose on Wed09/30/18 at 0900, Until Discontinued And lamoTRIgine (LaMICtal) tablet 100 mgJump to med 100 mg, Oral, NIGHTLY, First dose on Wed09/29/18 at 2230, Until Discontinued Group 2: acetaminophen (TYLENOL) tablet 650 mgJump to med 650 mg, Oral, EVERY 4 HOURS PRN, Starting on Wed10/05/18 at 2012, Until Wed10/07/18 at 0054, Pain, Fever, Temp greater than 102 F, Maximum adult dose of acetaminophen is 4000 mg from all sources in 24 hours. , Critical Care Or acetaminophen (TYLENOL) suppository 650 mgJump to med 650 mg, Rectal, EVERY 4 HOURS PRN, Starting on Wed10/05/18 at 2012, Until Wed10/07/18 at 0054, Pain, Fever, Temp greater than 102 F, Maximum adult dose of acetaminophen is 4000 mg from all sources in 24 hours. , Critical Care Or acetaminophen (OFIRMEV) infusion 1,000 mg (CANCELED) 1,000 mg, Intravenous, EVERY 6 HOURS PRN, Starting on Wed10/05/18 at 2012, Until Wed10/05/18 at 2030, Pain, Fever, Temp greater than 102 F, Administer over 15 Minutes, Maximum adult dose of acetaminophen is 4000 mg from all sources in 24 hours. , Critical Care Group 3: glucagon (human recombinant) (GLUCAGEN) injection 1 mgJump to med 1 mg, Intramuscular, PRN, Starting on Wed10/05/18 at 2012, Until Wed10/07/18 at 0054, Low blood sugar, If FSBS less than 70 mg/dl, patient cannot take orally and without IV access, If patient is without IV access, give Glucagon 1 mg Intramuscularly, insert IV and call physician., Critical Care And sterile water injection 1 mLJump to med 1 mL, Injection, PRN, Starting on Wed10/05/18 at 2012, Until Wed10/07/18 at 0054, Use for drug dilution, Use to dilute and administer glucagon injection, Critical Care documented in this encounter Orders Medications Ordered That Gaurav ht Not Have Been Administered Count Last Ordered Date First Ordered Date 0.9 % NaCl infusion 1 10/05/2018 acetaminophen (OFIRMEV) infusion 1,000 mg 1 10/05/2018 acetaminophen (TYLENOL) suppository 650 mg 1 10/05/2018 acetaminophen (TYLENOL) tablet 650 mg 1 dextrose 50 % solution 25 mL 3 10/05/2018 09/29/2018 glucagon (human recombinant) (GLUCAGEN) injection 1 mg 3 10/05/2018 09/29/2018 ICU Electrolyte Replacement - Calcium 1 ICU Electrolyte Replacement - Magnesium 1 0 10/05/2018 ICU Electrolyte Replacement - Phosphate 1 0 10/05/2018 ICU Electrolyte Replacement - Potassium 1 0 10/05/2018 miconazole (MICATIN) 2 % powder 1 9 nitroGLYCERIN (NITROSTAT) SL tablet 0.4 mg 1 10/05/2018 sterile water injection 1 mL 3 10/05/2018 09/29/2018 melatonin tablet 10 mg 1 10/03/2018 lamoTRIgine (LaMICtal) tablet 50 mg 1 09/29 sodium chloride 0.9% IV line flush 50 mL 1 09/29/2018 sodium chloride 0.9% syringe 1 09/29/2018 sodium chloride 0.9% syringe 5-10 mL 1 09/06 Nursing Count Last Ordered Date First Orde red Date CALL ADMITING 1 10/05/2018 NURSING COMMUNICATION 1 10/05/2018 [facility] PROPH NON-CANDIDATE 2 10/02/2018 09/29/2018 ADMISSION 1 09/29/2018 ED ENTER ADMISSION ORDER 1 09/29/2018 Consult Count Last Ordered Date First Orde red Date IP CONSULT TO PSYCHIATRY 1 10/05/2018 PT Count Last Ordered Date First Orde red Date IP CONSULT TO PHYSICAL THERAPY 1 09/30/2018 IV Count Last Ordered Date First Orde red Date SALINE LOCK IV 1 09/29/2018 Transfer Count Last Ordered Date First Orde red Date BED REQUEST 1 09/29/2018 Discharge Count Last Ordered Date First Orde red Date DISCHARGE PATIENT 1 10/06/2018 documented in this encounter Additional Health Concerns Assessment Noted Time PHQ-9 Depression Total Score: 2 07/27/19 19 9:40 AM EDT A fall risk assessment has been complete d for the patient 05/17/2018 8:17 AM EDT PHQ-2 Depression Total Score: 2 07/27/19 19 9:40 AM EDT documented as of this encounter Care Teams Spring Winder Relationship Specialty Start Date End Date Sharee Segovia APRN [address] [place] [id number] PCP - General Nurse Practitioner-Family 09/21/16 Isaura Pickens, GINGER Survey Engineer 09/12/18 9 documented as of this encounter
--- OUTSIDE RECORDS SUMMARY | 2024-02-16 14:49 | XMS_ITS | Encounter Summary ---
Author Organization [facility] [place] [address] Care Team Providers Care Integrity Manager Name Role Phone Sharee Segovia MAID CLEANING COOKING Primary Care Provider [phone] Isaura Pickens MATLAB DEVELOPER Unavailable Unavail able Reason for Visit * Reason Onset Date Comments Medication Management 09/09/2018 Encounter Details Date Type Department Care Team (Late st Contact Info) Description 09/09/2018 Telephone [facility] [address] [place] [address] Sharee Segovia APRN [address] [place] [address] Medication Management Social History Tobacco Use Types Packs/Day Years [...] Assessment Author No 08/14/2018 1:48 PM EDT Vargas, M angelo, RN * Is the person blind or [...] Susan Kaye RN documented in this encounter Ordered Prescriptions Prescription Sig Dispense Quantity Refills Last Filled Start Date End Date Insulin glargine (BASAGLAR KWIKPEN U-100 INSULIN) 100 unit/mL (3 mL) SubQ Insulin PenIndications:Di abetes mellitus type 2 in obese,Falls, initial encounter,History of CVA with residual deficit Subcutaneous (Inject under the skin) 35 Units every evening. 3 mL 6 09/09/2018 documented in this encounter Miscellaneous Notes * Telephone Encounter - Sharee Segovia ARNP - 09/12/2018 11:33 AM EDT Her insulin had been cut back when she was in the hospital to 20 units * Telephone Encounter - Joanna Pierce MD - 09/09/2018 2:53 PM EDT Discussed with richard. Pt has been taking 32 units - was never told to decrease. With the 32 units has been having blood sugars in 180s. Will increase to 35 units and check blood sugars in am and of an evening. * Telephone Encounter - Tao Bonds MA - 09/09/2018 2:16 PM EDT Please advise, thanks. * Telephone Encounter - Jess Rosa - 09/09/2018 9:01 AM EDT Can someone call the nurse, Richard, at the [facility]? She has questions as to why the pts insulin dosage was decreased from 32 units to 24 units. The pt's blood sugar is running in the 180's. Please call Thank you documented in this encounter Plan of Treatment [...] as of this encounter Visit Diagnoses Diagnosis Diabetes mellitus type 2 in obese Type II or unspecified type diabetes mellitus without mention of complication, not stated as uncontrolled Falls, initial encounter History of CVA with residual deficit documented in this encounter Discontinued Medications Medication Sig Discontinue Reason Start Date End Da te Insulin glargine (BASAGLAR KWIKPEN U-100 INSULIN) 100 unit/mL (3 mL) SubQ Insulin PenIndications:Diabet es mellitus type 2 in obese,Falls, initial encounter,History of CVA with residual deficit Subcutaneous (Inject under the skin) 24 Units every evening. 09/07/2018 09/09/2018 documented as of this encounter Additional Health Concerns Assessment Noted Time PHQ-9 Depression Total Score: 2 07/27/19 9:40 AM EDT A fall risk assessment has been complete d for the patient 05/17/2018 8:17 AM EDT PHQ-2 Depression Total Score: 2 07/27/19 9:40 AM EDT documented as of this encounter Care Teams Integrity Manager Relationship Specialty Start Date End Date Sharee Segovia APRN [address] [place], [place] [phone] PCP - General Nurse Practitioner-Family 09/21/16 Isaura Pickens LCSW Speech Language Therapist 09/12/18 9 documented as of this encounter
--- OUTSIDE RECORDS SUMMARY | 2024-02-16 14:49 | XMS_ITS | Encounter Summary ---
Author Organization [place] [address] Care Team Providers Care Yacht Hand Name Role Phone Sharee Segovia APRN Primary Care Provider [phone] Isaura Pickens LCSW Unavailable Unavail able Reason for Visit * Reason Onset Date Comments SW- Telephonic Outreach 10/19/2018 Encounter Details Date Type Department Care Team (Late st Contact Info) Description 10/19/2018 Patient Outreach [facility] [address] [place] [address] Isaura Pickens LCSW SW- Telephonic Outreach [...] Ronaldo Marley RN documented in this encounter Progress Notes * Isaura Pickens CSW - 10/19/2018 1:38 PM EDT MATERIALS TECHNICIAN is closing SW referral at this time as she is currently admitted to [facility]. Nawill assist with discharge planning to the appropriate setting when pt is ready to be discharged. If need in future arises, a new referral will be needed. documented in this encounter Plan of Treatment [...] documented as of this encounter Care Teams Yacht Hand Relationship Specialty Start Date End Date Sharee Segovia APRN [address] [place] [phone] PCP - General Nurse Practitioner-Family 09/21/16 Isaura Pickens LCSW Front Desk Clerk 09/12/18 9 documented as of this encounter
--- OUTSIDE RECORDS SUMMARY | 2024-02-16 14:49 | XMS_ITS | Clinical Summary ---
Author Organization [facility] Address [address] [place] [address] Phone Care Team Providers Care Hogshead Packer Name Role Phone Unavailable Primary Care Provider Unavailabl e Allergies Active Allergy Reactions Criticality Noted Date Comments Prochlorperazine Edisylate [address] 08/29/2014 Pentazocine Hcl 06/22/2016 Prochlorperazine Maleate 06/22/2016 [...] Tablet Sustained Release 12 hrIndications:Stab le angina ([facility]) TAKE ONE TABLET BY MOUTH EVERY 12 HOURS 60 Tab 10/07/19 18 Active glipiZIDE (GLUCOTROL) 10 mg Oral TabletIndications: NSTEMI (non-ST elevated myocardial infarction) ([facility]),ASHD (arteriosclerotic heart disease),Essential hypertension,Chron ic diastolic CHF (congestive heart failure) ([facility]),Hyperlipidem ia, unspecified hyperlipidemia type Take 10 mg by mouth 2 times daily. Active lamoTRIgine (LAMICTAL) 100 mg Oral TabletIndications: NSTEMI (non-ST elevated myocardial infarction) ([facility]),ASHD (arteriosclerotic heart disease),Essential hypertension,Chron ic diastolic CHF (congestive heart failure) ([facility]),Hyperlipidem ia, unspecified hyperlipidemia type Take 50 mg by mouth daily supervisor cold rolling. And Takes 100 mg at night Active QUEtiapine (SEROQUEL) 50 mg Oral Tablet Take 100 mg by mouth nightly. Active gabapentin (NEURONTIN) 100 mg Oral Capsule Take 200 mg by mouth 4 times daily. Active albuterol (PROVENTIL HFA; VENTOLIN HFA) 90 mcg/actuation Inhl HFA Aerosol InhalerIndications :Chronic diastolic CHF (congestive heart failure) ([facility]),Essential hypertension,ASHD (arteriosclerotic heart disease),S/P ablation of atrial flutter,Old IA (myocardial infarction) Inhale 2 Puffs into the [...] from the original. Has been sent to pred[facility] animal extermin[facility] care facility [facility] - [facility] 11/2018 Call [employer] message with Kyra for lab results . Problem Noted Date Diagnosed Date care home resident 11/25/2023 MDD (major depressive disorder), recurrent episo de, mild 08/26/2023 Mood insomnia 08/26/2023 Personality disorder 08/26/2023 Edema of both lower legs due to peripheral venous insufficiency 09/29/2018 Bilateral cellulitis of lower leg 09/29/2018 Hypovolemic shock 08/12/2018 Severe obesity (BMI 35.0-39.9) with comorbidity 07/11/2018 Overview (07/11/2018): --BMI 36.34 with diabetes in problem list Osteopenia of multiple sites 07/07/2018 Old IA (myocardial infarction) 04/18/2018 Overview (04/18/2018): -IA > 4 weeks old Schizoaffective disorder, depressive [...] EPS/atrial flutter ablation on 12/31/[address] Tee Chronic diastolic heart failure 12/26/2015 JACK (acute [...] myoc ardial infarction) 08/01/2017 04/18/2018 Overview (04/18/2018): -IA > 4 weeks old -added Old IA Chest pain 07/24/2017 07/26/2018 Overview (07/25/2017): Added automatically from request for surgery [id number] Diarrhea 05/04/2017 07/24/2017 Acute lower UTI 05/04/2017 07/24/2017 Morbid obesity with BMI of 45.0-49.9, adult 05/03/2017 07/24/2017 Metabolic encephalopathy 05/03/2017 Depression with suicidal ideation 05/03/2017 07/24/2017 Intellectual disability 05/03/201708/07 Acute chest pain 04/11/2017 08/26/2023 Hypotension 12/19/2016 07/24/2017 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 10/22/2016 08/10/2017 Recurrent major depressive d isorder, in partial remission 10/22/2016 08/26/2023 Coronary artery disease invo lving [place] coronary artery of [place] heart without angina pectoris 12/30/2015 08/26/2023 Ulcer [...] Valent 016 Pneumococcal Polysaccharide 23 Valent 07/26/2017 Surgical History Surgery Date Site/Laterality Comments TONSILLECTOMY ORTHOPEDIC SURGERY JOINT REPLACEMENT left total knee replacement 1999 ANKLE SURGERY UPPER GASTROINTESTINAL ENDOSCOPY 04/03/2015 N/A ESOPHAGOGASTRODUODENOSCOPY WITH BIOPSY AND BRUSHING; Surgeon: Be Brwon MD; Location: [facility]; Service: Endoscopy ABLATION OF DYSRHYTHMIC FOCUS 12/31/2015 atrial fl[address] ablation [address] Dr. Tee BREAST SURGERY reduction LUNG SURGERY partial removal KNEE SURGERY 12/06/2008 Left Medical History Medical History Date Comments COPD (chronic obstructive pu lmonary disease) (HCC) DDD (degenerative disc disease) CHF (congestive heart failure) (HCC) Diabetes mellitus (HCC) Hypertension Yeast infection recurrent Suicide attempt (HCC) Stroke (HCC) 2009 left side affect ed RLS (restless legs syndrome) Atrial flutter (HCC) EPS, AFL Ab lation on 12/31/[address] Tee Schizoaffective disorder, de pressive type (HCC) 02/19/2017 IA (myocardial infarction) (HCC) Urinary incontinence Intellectual disability 05/03/2017 Gastrointestinal hemorrhage associated with gastroduodenitis 04/01/2015 Family History Medical History Relation Name Comments Heart Disease Brother Seizures Daughter Cancer Mother larnyx cancer Colon Cancer Mother Heart Disease Sister No Known Problems Son Relation Name Status Comments Brother Alive Daughter Alive Father Mother Sister Alive Son Alive Social History Tobacco Use Types Packs/Day Years [...] file Not on file Not on file Obstetrics History Last Filed Vital Signs Vital Sign Reading [...] Mass Index 35.41 10/05/2018 4:56 PM EDT Plan of Treatment Health Maintenance Due Date Last Done Comments Wellness Exam Medicare 07/13/1952 DTaP/TDaP/Td (1 - Tdap) 07/13/1970 Cologuard 07/13/1996 Colonoscopy 07/13/1996 Sigmoidoscopy 07/13/1996 Virtual Colonography 07/13/1996 Zoster (1 of 2) 07/13/2001 RSV or 60+ (1 - Ris k 60-74 years 1-dose series) 2011 Colon Cancer Screening 08/11/2018 FIT 08/11/2018 08/11/2017 Hemoglobin A1c 10/17/2018 04/19/2018, 06/0 06/2017, 05/02/2017, Additional history exists Lipids 04/19/2019 04/19/2018, 0709/2017, 08/02/2017, Additional history exists Microalbuminuria 05/18/2019 05/17/2018 Diabetic Eye Exam 04/19/2020 04/19/2018 Breast Cancer Screening 07/25/2020 07/25/2018 COVID-19 Vaccine (2023-2 5 season) 2023 Influenza Vaccine (#1) 2023 01/05/2018, 2015 Hepatitis C Screening Completed 10/22/2016 Pneumococcal Vaccine 65+ Completed 07/26/2017, 12/07 Bone Density Screening Completed 07/05/2018 Hepatitis B Vaccine Aged Out No longe r eligible based on patient's age to complete this topic Goals Goal Patient Goal Type Associated Problems [...] EDT Impressions 07/25/2018 4:07 PM EDT Negative ??([id number]) ~ RECOMMENDATION: Routine screening mammogram in 1 [...] for screening mammogram for malignant neoplasm of [id number] ~ MM MAMMO DIG SCREEN CAD BILAT Bilateral CC and MLO view(s) were taken. There are scattered fibroglandular densities. Prior study comparison: No prior studies available for comparison. No mammographic evidence of malignancy. No suspicious calcifications. ~ Procedure Note Rainer Gonsalez, - 07/25/2018 Procedure:MM MAMMO DIGITAL SCREENING W CAD BILAT ~ Reason for exam: screening, asymptomatic. Z12.31-Encounter for screening mammogram for malignant neoplasm of [id number]-CM ~ MM MAMMO DIG SCREEN CAD BILAT Bilateral CC and MLO view(s) were taken. There are scattered fibroglandular densities. Prior study comparison: No prior studies available for comparison. No mammographic evidence of malignancy. No suspicious calcifications. ~ IMPRESSION: Negative ([id number]-9) ~ RECOMMENDATION: Routine screening mammogram in 1 [...] a Radiologist and CAD. us Sharee Segovia APRN [facility] MAMMOGRAPHY ORDERABLE S Final Result * DX BONE DENSITY AXIAL SKELETON (07/05/2018 3:04 PM EDT) Anatomical Region Laterality Modality Dexa Scan 07/05/2018 Narrative 07/06/2018 12:03 PM EDT Indication: The patient is a female age 65 or older who requires a bone density assessment. Study was performed on IPTEGO 5. Bone Density: Region ?BMD ? T-score [...] vertebra deleted. Reported by: Alessandra Arguelles PA-C, CCD on 07/05/2018 3:35:00 PM. Sharee Segovia APRN IM DEXA ORDERABLES Final Result * MICROALBUMIN/CREATININE RATIO URINE (05/17/2018 9:24 AM EDT) Urine Microalb 17.7 mg/L 05/17/2018 4:35 PM EDT PREFERRED [facility] [employer] Urine Creatinine 76.0 mg/dL 05/17/2018 4:35 PM EDT [facility]REFERRED [facility] [employer] Ur Microalb/Creat 23 0 - 30 mg/g 05/17/2018 4:35 PM EDT PREFERRED [facility] [employer] Urine URINE SPECIMEN COLLECTION / Unknown 05/17/2018 9:24 AM EDT 05/17/2018 9:24 AM EDT Sharee Segovia INTERIOR SPECIALIST URINE ORDERABLES Final Re sult Performing Organization Address [facility] de Phone Number [facility] [address] , [address] [place] [id number] * (ABNORMAL) HEMOGLOBIN A1C (04/19/2018 9:49 AM EST) Hgb A1C 6.6(H) 4.2 - 5.6 % 04/19/2018 4:07 PM EST [facility] Est. Avg Glucose 143 mg/dL 04/19/2018 4:07 PM EST [facility] Blood VENOUS BLOOD / Unknown Venipuncture / Unknown 04/19/2018 9:49 AM EST 04/19/2018 9:49 AM EST Narrative [facility] - 04/19/2018 4:07 PM EST REFERENCE RANGE: Normal: 4.0-5.6% Pre-diabetes: 5.7-6.4% Provisional diagnosis of diabetes: >6.4% Hgb F>10% and anything which shortens red cell survival, such as hemolytic anemia, or unstable hemoglobin variants such as HbSS, HbSC, or HbCC, will lower the HbA1c value associated with a given level of glycemic control. ? Sharee Segovia INTERIOR SPECIALIST CHEMISTRY ORDERABLES Mildred l Result Performing Organization Address [facility] de Phone Number [facility] [address] [place] [address] , [place] [address] * LIPID SCREEN (04/19/2018 9:49 AM EST) Cholesterol 116 <=200 mg/dL 04/19/2018 4:24 PM EST [facility] Comment: < 200 ?Desirable 200 - 239 ? Borderline High >= 240 ?High Triglyceride 124 <=150 mg/dL 04/19/2018 4:24 PM EST [facility] Comment: < 150 ? Normal 150 - 199 ?Borderline High 200 - 499 ?High ??>= 500 ? Very High HDL 51 >=40 mg/dL 04/19/2018 4:24 PM EST [facility]REFERRED [facility] [employer] Comment: ??> 60 ?Optimal 40 - 60 ?Acceptable ?? < 40 ?Low LDL Calculated 40 <=100 mg/dL 04/19/2018 4:24 PM EST [facility]ERRED [facility] [employer] Comment: < 100 ?Optimal 100 - 129 ? Near or above optimal 130 - 159 ? Borderline High 160 - 189 ? High >= 190 ?Very High Non-HDL-C Calculated 65 <=129 mg/dL 04/19/2018 4:24 PM EST [facility]REFERRED [facility] [facility] Comment: <130 ?Desirable 130-159 Above Desirable 160-189 Borderline High 190-219 High >= 220 ??Very High Fasting Specimen? Yes None 019 4:24 PM EST PREFERRED [facility] Blood VENOUS BLOOD / Unknown Venipuncture / Unknown 04/19/2018 9:49 AM EST 04/19/2018 9:49 AM EST Sharee Segovia INTERIOR SPECIALIST CHEMISTRY ORDERABLES Mildred l Result Performing Organization Address [facility] Co de Phone Number [facility] [address], [place] [address] * (ABNORMAL) FECAL HEME SCREEN (08/11/2017 4:29 PM EDT) Fecal Heme Scrn Positive(A ) Negative 08/11/2017 8:34 PM EDT [facility] Stool COLON STRUCTURE / Unknown 08/11/2017 4:29 PM EDT 08/11/2017 4:29 PM EDT Sharee Segovia INTERIOR SPECIALIST IMMUNOLOGY ORDERABLES Fin al Result Performing Organization Address [facility] Co de Phone Number [facility] [address] [place] [address] * HEPATITIS C ANTIBODY - SCREENING (10/22/2016 2:42 PM EDT) Hep C Ab Negative Negative [facility] Blood specimen (specimen) UPPER LIMB STRUCTURE / Unknown 10/22/2016 2:42 PM EDT 10/22/2016 8:27 PM EDT Sharee Segovia INTERIOR SPECIALIST HEMATOLOGY ORDERABLES Fin al Result [facility] [address] [place] [address] from Last 3 Months or Most Recently Relevant to Health Maintenance Insurance MEDICARE PART B MEDICARE PART B [facility] [address] MEDICARE PART B [facility] [place] [address] * Guarantor: Faby Palm Account Type Relation to Patient Date of Phone Billing Address [place] Personal Family Self Advance Directives For more information, please contact: [phone] * Full Code (Latest Code Status on [...]
--- OUTSIDE RECORDS SUMMARY | 2024-02-16 14:49 | XMS_ITS | Encounter Summary ---
Author Organization [facility] [place] [address] Care Team Providers Care Budget Analyst Name Role Phone Sharee Segovia FINISHED GARMENT INSPECTOR Primary Care Provider [phone] Isaura Pickens PISTON MAKER Unavailable Unavail able Encounter Details Date Type Department Care Team (Latest Contact Info) Description 09/29/2018 Travel Social History Tobacco Use Types Packs/Day Years [...] 08/14/2018 1:48 PM Susan Centeno RN * Is the person blind or does he/she have serious difficulty seeing even when wearing glasses? Answer Date of Assessment Author No 08/14/2018 1:48 PM Susan Centeno RN * Does this person have serious difficulty walking or climbing stairs? Answer Date of Assessment Author No 08/14/2018 1:48 PM Susan Centeno RN * Does this person have difficulty dressing or bathing? Answer Date of Assessment Author Yes 08/14/2018 1:48 PM EDT Susan Kaye, ROLF * Because of a physical, mental or [...] Susan Kaye RN documented in this encounter Plan of Treatment [...] documented as of this encounter Care Teams Budget Analyst Relationship Specialty Start Date End Date Sharee Segovia APRN [address] [place] [phone] PCP - General Nurse Practitioner-Family 09/21/16 Isaura Pickens LCSW Garbage Worker 09/12/18 9 documented as of this encounter
--- OUTSIDE RECORDS SUMMARY | 2024-02-16 14:50 | XMS_ITS | Encounter Summary ---
Author Organization [place] [address] Care Team Providers Care Technical Marketing Engineer Name Role Phone Sharee Segovia APRN Primary Care Provider [phone] Reason for Visit * Reason Onset Date Comments Referral 09/07/2018 Encounter Details Date Type Department Care Team (Late st Contact Info) Description 09/07/2018 Patient Outreach SEP Quality Transformation [address] [place] [address] Marisabel Lr RN Referral Social History Tobacco Use Types Packs/Day Years Used Date Smoking Tobacco: Never Smokeless Tobacco: Never Alcohol Use Standard Drinks/Week Comments No 0 (1 standard drink = 0.6 oz pur e alcohol) wednesday mass PHQ-2 Answer Date Recorded PHQ-2 Score 2 [...] documented in this encounter Progress Notes * Marisabel Lr RN - 09/07/2018 3:06 PM EDT Social Work referral received from . Referral note: Pt wants to explore other assisted living options such as [facility]. She would like like to move to [place] closer to her family. Having frequent falling Assigned to: PRISCILLA Guajardo documented in this encounter Plan of Treatment [...] documented as of this encounter Care Teams Technical Marketing Engineer Relationship Specialty Start Date End Date Sharee Segovia APRN [address] [place] [phone] PCP - General Nurse Practitioner-Family 09/21/16 documented as of this encounter
--- OUTSIDE RECORDS SUMMARY | 2024-02-16 14:50 | XMS_ITS | Encounter Summary ---
Author Organization [facility] [place] [address] Care Team Providers Care Legal Records Clerk Name Role Phone Sharee Segovia APRN Primary Care Provider [phone] Encounter Details Date Type Department Care Team (Latest Contact Info) Description 08/12/2018 Travel Social History Tobacco Use Types Packs/Day [...] hearing? Answer Date of Assessment Author No 04/19/2018 9:02 AM Sharee García APRN * Is the person blind or does he/she have serious difficulty seeing even when wearing glasses? Answer Date of Assessment Author No 04/19/2018 9:02 AM Sharee García APRN * Does this person have serious difficulty walking or climbing stairs? Answer Date of Assessment Author Yes 04/19/2018 9:02 AM Sharee García APRN * Does this person have difficulty dressing or bathing? Answer Date of Assessment Author Yes 04/19/2018 9:02 AM Sharee García APRN * Because of a physical, mental or emotional condition, does this person have difficulty doing errands alone such as visiting a doctor's office or shopping? Answer Date of Assessment Author Yes 04/19/2018 9:02 AM Sharee García APRN documented as of this encounter Mental Status * Because of a physical, mental or emotional condition, does this person have serious difficulty concentrating, remembering or making decisions? Answer Entry Date Author Yes 04/19/2018 9:02 AM Sharee García APRN documented in this encounter Plan of Treatment [...] HEMOGLOBIN A1C < 7.0 Result Component 6.6( 9:49 AM EST) No Silva Mathew RMA [...] documented as of this encounter Care Teams Legal Records Clerk Relationship Specialty Start Date End Date Sharee Segovia APRN [address] [place], [place] [phone] PCP - General Nurse Practitioner-Family 09/21/16 documented as of this encounter
--- OUTSIDE RECORDS SUMMARY | 2024-02-16 14:50 | XMS_ITS | Encounter Summary ---
Author Organization [place] [address] Care Team Providers Care Coating Mixer Supervisor Name Role Phone Sharee Segovia APRN Primary Care Provider [phone] Reason for Visit * Reason Comments Hospital Follow Up meds per pt * Office Visit (Routine) - Closed Specialty Diagnoses / Procedures Referred By Arsh patel Referred To Contact Internal Medicine-Interventional Cardiology / Cardiology Diagnoses 6 mth f/u-labs prior Procedures OFFICE VISIT Sharee Segovia APRN [address] [place] [address] Phone: tel: fax: Bello Devries MD [address] [place] [address] Phone: tel: fax: Referral ID Status Reason Start Date Expiration Date Visits Re quested Visits Authorized [id number] Closed 04/25/2018 04/25/2019 99 [phone] Encounter Details Date Type Department Care Team (Late st Contact Info) Description 07/28/2018 8:40 AM EDT Office Visit [facility]P [facility] [address] [place] [address] Becca Sykes APRN [address] [place] [address] ASHD (arteriosclerotic heart disease) (Primary Dx); Chronic diastolic CHF (congestive heart failure) (HCC); Essential hypertension; S/P ablation of atrial flutter; Hemiparesis affecting left side as late effect of stroke (HCC); History of CVA with residual deficit; 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) Social History Tobacco Use Types Packs/Day Years [...] Sign Reading Time Taken Comments Blood Pressure 131/79 07/28/2018 8:52 AM EDT Pulse 63 07/28/2018 8:52 AM EDT Temperature - - Respiratory Rate - - Oxygen Saturation - - Inhaled Oxygen Concentration - - Weight 105.7 kg (233 lb) 07/28/2018 8:52 AM EDT Height 172.7 cm (5' 8 ) 07/28/2018 8:52 AM EDT Body Mass Index 35.43 07/28/2018 8:52 AM EDT documented in this encounter Functional Status [...] Sharee García APRN documented in this encounter Progress Notes * Becca Sykes ARNP - 07/28/2018 8:40 AM EDT ASSESSMENT AND PLAN: Chronic diastolic CHF (congestive heart failure) (HCC) -She doesn't want to take lasix due to urinary frequency. -Encouraged her to do so. -ECHO 04/25: nl EF ASHD -Currently having atypical CP -Recent hosp and negative [facility] 07/20/18 -CATH 07/24/17: ?? Ost RCA lesion 60% stenosed. ?? Mid RCA lesion 40% stenosed. ?? Mid LAD lesion 50% stenosed.FFR 0.82 Significant but not clearly flow limiting dz Ostial RCA of 50-70% - difficult to image due to angulation with FFR of 0.92 Mid LAD appearing 50% with FFR of 0.82 Normal LVEDP ?? -Cont isos, acei, ranexa, isoso, statin, asa, ccb, basa -D/C plavix due to frequent falls. ?? Bradycardia ??-Presumably why pt is not on bblocker Hx Atrial Flutter - S/p AF ablation (2016) -SR by exam and recent hosp stay. -No AC due to fall risk. ?? Hypertension -continue amlodipine, acei--controlled ?? Dyslipidemia -continue??statin ?? DM -per primary ??care? H/o CVA - Residual left hemiparesis -pt feels more weak all over today and trouble just trying to get up in bed -ASA, statin ?? Frequent Falls -Last Wednesday was the last time. Social: -[facility]ives [facility] assisted living. Follow up with Dr. Devries in 3 mos Chief Complaint Patient presents with ??? Hospital Follow Up meds per pt HPI: Faby Palm is here for regularly scheduled cardiology follow up of: Problem List Cardiology Problems ASHD (arteriosclerotic heart disease) Chronic diastolic CHF (congestive heart failure) (HCC) Essential hypertension S/P ablation of atrial flutter Chest pain at rest [place] (myocardial infarction) Stabbing CP that comes and goes within secs. Recent hosp and had negative stress test. Generally slightly SOB, LUONG. Describes orthop and PND at times. Chronic edema as well. Walks with walker. Falls frequently. Doesn't take her lasix due to urinary frequency. The patient currently denies any of the following symptoms palpitations, dizziness, syncope, angina,. Patient denies side effect to prescribed medications. REVIEW OF SYSTEMS: ?? NEGATIVE FOR: ?? Bleeding ?? Fevers ?? Weight Loss ?? Visual Disturbance ?? POSITIVE FOR: ?? none Per [facility] nursing notes ,remainder of ROS was reviewed and negative PAST MEDICAL HISTORY: Past Medical History: Diagnosis Date ??? Atrial flutter (HCC) EPS, AFL Ablation on 12/31/[address] Tee ??? CHF (congestive heart failure) (HCC) ??? COPD (chronic obstructive pulmonary disease) (HCC) ??? DDD (degenerative disc disease) ??? Diabetes mellitus (HCC) ??? Hypertension ??? Intellectual disability 05/03/2017 ??? [place] (myocardial infarction) (HCC) ??? RLS (restless legs syndrome) ??? Schizoaffective disorder, depressive type (HCC) 02/19/2017 ??? Stroke (HCC) 2010 left side affected ??? Suicide attempt (HCC) ??? Urinary incontinence ??? Yeast infection recurrent PAST SURGICAL HISTORY: Past Surgical History: Procedure Laterality Date ??? [...] AND BRUSHING; Surgeon: Be Brown MD; Location: [facility]; Service: Endoscopy ALLERGIES: Allergies Allergen Reactions ??? Compazine [Prochlorperazine Edisylate] ??? [place] ??? Pentazocine Hcl ??? Prochlorperazine Maleate ??? Talwin [Pentazocine Lactate] MEDICATIONS: Current Outpatient Medications on File Prior to Visit Medication Sig Dispense Refill ??? acetaminophen 325 mg Oral Tab Take 650 mg by mouth every 4 hours as needed for Pain. Pt takes 1to 2 tabs as needed ??? albuterol (PROVENTIL HFA; VENTOLIN HFA) 90 mcg/actuation Inhl HFA Aerosol Inhaler Inhale 2 Puffs into the lungs 0800, 1200, 1600, 2000. ??? amLODIPine (NORVASC) 2.5 mg Oral Tablet Take 1 Tab by mouth daily. 30 Tab 11 ??? ARIPiprazole (ABILIFY) 30 mg Oral Tablet Take 1 Tab by mouth daily. 30 Tab 0 ??? aspirin (ASPIRIN) 81 mg Oral Tablet, Chewable Take 1 Tab by mouth daily. 30 Tab 11 ??? atorvastatin (LIPITOR) 20 mg Oral Tablet TAKE ONE TABLET BY MOUTH NIGHTLY 30 Tab 1 ??? OLIVE MUELLER U-100 INSULIN 100 unit/mL (3 mL) SubQ Insulin Pen INJECT 36 UNITS UNDER THE SKIN DAILY AT BEDTIME (Patient taking differently: INJECT 28 UNITS UNDER THE SKIN DAILY AT BEDTIME) 15mL 3 ??? busPIRone (BUSPAR) 5 mg Oral Tablet Take 5 mg by mouth 2 times daily. ??? Calcium Carbonate-Vitamin D3 (CALCIUM 600 + D,3,) 600 mg calcium- 200 unit Oral Capsule Take 1 Tab by mouth every 12 hours. ??? ferrous sulfate 325 mg (65 mg iron) Oral Tablet Take 1 Tab by mouth 2 times daily (with meals).60 Tab 5 ??? gabapentin (NEURONTIN) 100 mg Oral Capsule Take 200 mg by mouth 4 times daily. ??? glipiZIDE (GLUCOTROL) 10 mg Oral Tablet Take 10 mg by mouth 2 times daily. ??? insulin glargine U-100 (LANTUS) 100 unit/mL SubQ Solution 36 units sq nightly 10 mL 2 ??? isosorbide mononitrate (IMDUR) 120 mg Oral Tablet Sustained Release 24 hr Take 1 Tab by mouth daily. 30 Tab 3 ??? lamoTRIgine (LAMICTAL) 100 mg Oral Tablet Take 50 mg by mouth 2 times daily. Takes 100 mg at night ??? lisinopril (PRINIVIL;ZESTRIL) 20 mg Oral Tablet Take 20 mg by mouth every morning. ??? loperamide (IMODIUM) 2 mg Oral Capsule Take 2 mg by mouth 3 times daily as needed. ??? Melatonin 3 mg Oral Tablet Take 5 mg by mouth nightly. ??? miconazole (MICOTIN) 2 % Top Cream Apply topically 2 times daily. Please dispense largest available tube 140 g 1 ??? nitroGLYCERIN (NITROSTAT) 0.4 mg SL Tablet, Sublingual Place 1 Tab under the tongue every 5 minutes as needed for Chest pain. 20 Tab 2 ??? omega-3 acid ethyl esters (LOVAZA) 1 gram Oral Capsule Take 1 g by mouth 2 times daily. ??? oxybutynin (DITROPAN-XL) 10 mg Oral Tablet Extended Rel 24 hr Take 1 Tab by mouth daily. 30 Tab2 ??? pantoprazole (PROTONIX) 40 mg Oral Tablet, Delayed Release (E.C.) Take 1 Tab by mouth daily. 30Tab 2 ??? QUEtiapine (SEROQUEL) 50 mg Oral Tablet Take 50 mg by mouth nightly. ??? RANEXA 1,000 mg Oral Tablet Sustained Release 12 hr TAKE ONE TABLET BY MOUTH EVERY 12 HOURS 60 Tab 0 ??? risperiDONE (RISPERDAL) 0.5 mg Oral Tablet Take 0.5 mg by mouth nightly. ??? Saccharomyces boulardii (FLORASTOR) 250 mg Oral Capsule Take 250 mg by mouth 2 times daily. ??? sertraline (ZOLOFT) 100 mg Oral Tablet Take 200 mg by mouth daily. Reported on 08/12/2016 ??? sucralfate (CARAFATE) 100 mg/mL Oral Suspension Take 1 g by mouth 4 times daily (before meals and nightly). ??? traZODone (DESYREL) 50 mg Oral Tablet Take 3 Tabs by mouth nightly. 90 Tab 2 ??? fUROsemide (LASIX) 20 mg Oral Tablet Take 20 mg by mouth daily. ??? metFORMIN XR (GLUCOPHAGE-XR) 500 mg Oral Tablet Sustained Release 24 hr Take 500 mg by mouth daily (with breakfast). No current facility-administered medications on file prior to visit. SOCIAL HISTORY: Social History Socioeconomic History ??? Marital status: Spouse name: Not on file ??? Number of children: 2 ??? Years of education: Not on file ??? Highest education level: Not on file Occupational History ??? Occupation: retired Social Needs ??? Financial resource strain: Not on file ??? Food insecurity: Worry: Not on file Inability: Not on file ??? Transportation needs: Medical: Not on file Non-medical: Not on file Tobacco Use ??? Smoking status: Never Smoker ??? Smokeless tobacco: Never Used Substance and Sexual Activity ??? Alcohol use: No Comment: wednesday mass ??? Drug use: No ??? Sexual activity: Never Lifestyle ??? Physical activity: Days per week: Not on file Minutes per session: Not on file ??? Stress: Not on file Relationships ??? Social connections: Talks on phone: Not on file Gets together: Not on file Attends oriental orthodox service: Not on file Active member of club or organization: Not on file Attends meetings of clubs or organizations: Not on file Relationship status: Not on file ??? Intimate partner violence: Fear of current or ex partner: Not on file Emotionally abused: Not on file Physically abused: Not on file Forced sexual activity: Not on file Other Topics Concern ??? Not on file Social History Narrative Lives at [facility] Has two children and two grandchildren. Is FAMILY HISTORY: Family History Problem Relation Age of Onset ??? Cancer Mother larnyx cancer ??? Colon Cancer Mother ??? Heart Disease Sister ??? No Known Problems Son ??? Seizures Daughter PHYSICAL EXAMINATION: Vitals: 07/28/18 0852 BP: 131/79 Pulse: 63 Body mass index is 35.43 kg/m??. Wt Readings from Last 3 Encounters: 07/28/18 233 lb (105.7 kg) 07/26/18 216 lb (98 kg) 07/12/18 223 lb (101.2 kg) CONSTITUTIONAL: ?? Vital signs are noted ?? No apparent distress ?? Alert and oriented EYES: ?? Sclera anicteric ?? Gaze conjugate EARS, NOSE, MOUTH, THROAT: ?? Nose is midline NECK: ?? Thyromegaly is absent ?? Trachea is midline ?? Masses are absent RESPIRATORY: ?? Respiratory effort is normal ?? Wheezes are absent ?? Rales are absent ?? Rhonchi are absent CARDIOVASCULAR: ?? Heart rate is noted above ?? Regular rate and rhythm ?? Murmurs are absent ?? Rubs are absent ?? S1 and S2 normal ?? S3 or S4 are absent ?? Pulses are normal ?? Jugular venous pressure is normal ?? Edema is 1+ ble GASTROINTESTINAL: ?? Bowel sounds are normal ?? Abdomen is soft and non tender MUSCULOSKELETAL: ?? Clubbing is absent ?? Cyanosis is absent ?? Gait is normal SKIN: ?? Rashes are visually absent ?? Warm and dry NEUROLOGICAL: ?? Cranial nerves are grossly intact ?? Speech is normal PSYCHIATRIC: ?? Mood is normal ?? Affect is normal LABORATORY AND STUDIES: All pertinent study and laboratory results have been personally reviewed including results from last coronary angiogram, echocardiogram, stress test and carotid ultrasound, pacemaker/ AICD check if done and pertinent to this visit. SELECTIVE LAST BLOOD WORK: Lab Results Component Value Date CHOLESTEROL 116 04/19/2018 HDL 51 04/19/2018 LDLCALC 40 04/19/2018 TRIG 124 04/19/2018 Lab Results Component Value Date INR 1.22 (H) 09/21/2017 Lab Results Component Value Date WBC 7.3 07/19/2018 HGB 12.3 07/19/2018 HCT 37.9 07/19/2018 MCV 92.3 07/19/2018 PLT 165 07/19/2018 Lab Results Component Value Date HGBA1C 6.6 (H) 04/19/2018 Lab Results Component Value Date NA 140 07/19/2018 K 4.6 07/19/2018 BUN 22 07/19/2018 CALCIUM 9.8 07/19/2018 CL 101 07/19/2018 CO2 28 07/19/2018 CREATININE 1.29 07/19/2018 GLU 157 (H) 07/19/2018 Lab Results Component Value Date ALT 8 04/19/2018 AST 8 04/19/2018 GGT 49 (H) 09/09/2015 ALKPHOS 172 (H) 04/19/2018 Lab Results Component Value Date TSH 2.130 04/19/2018 ECG: No results found for this visit on 07/28/18. ACTIVE PROBLEM LIST: There are no active hospital problems to display for this patient. IMAGING AND LABS ORDERED THIS VISIT: None No orders of the defined types were placed in this encounter. MEDICINES CHANGED THIS VISIT: Requested Prescriptions No prescriptions requested or ordered in this encounter Medications Discontinued During This Encounter Medication Reason ??? clopidogrel (PLAVIX) 75 mg Oral Tablet Cancelled by Midlevel documented in this encounter Miscellaneous Notes * Patient Instructions - Becca Sykes ARNP - 07/28/2018 8:40 AM EDT Follow up with Dr. 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 Cancelled by Midlevel 07/27/2017 07/28/2018 documented as of this encounter Additional Health Concerns Assessment Noted Time PHQ-9 Depression Total Score: 2 07/27/19 19 9:40 AM EDT A fall risk assessment has been complete d for the patient 05/17/2018 8:17 AM EDT PHQ-2 Depression Total Score: 2 07/27/19 9:40 AM EDT documented as of this encounter Care Teams Coating Mixer Supervisor Relationship Specialty Start Date End Date Sharee Segovia APRN [address] [place] [phone] PCP - General Nurse Practitioner-Family 09/21/16 documented as of this encounter
--- OUTSIDE RECORDS SUMMARY | 2024-02-16 14:50 | XMS_ITS | Encounter Summary ---
Author Organization [place] [address] Care Team Providers Care Toll Test Desk Worker Name Role Phone Sharee Segovia APRN Primary Care Provider [phone] Reason for Visit * Reason Onset Date Comments Care Management - Chart Review 08/15/2018 Encounter Details Date Type Department Care Team (Late st Contact Info) Description 08/15/2018 Patient Outreach SEP [facility] Transformation [address] [place] [address] Marisabel Lr RN Care Management - Chart Review Social History Tobacco Use Types Packs/Day Years [...] Progress Notes * Marisabel Lr RN - 08/15/2018 9:29 AM EDT Patient discharged from [facility] with an EPIC risk of admission or ED visit score of > 80%. Routed [facility] Transition Team (CTT) for weekly follow-up. documented in this encounter Plan of Treatment [...] documented as of this encounter Care Teams Toll Test Desk Worker Relationship Specialty Start Date End Date Sharee Segovia APRN [address] [place] [address] PCP - General Nurse Practitioner-Family 09/21/16 documented as of this encounter
--- OUTSIDE RECORDS SUMMARY | 2024-02-16 14:50 | XMS_ITS | Encounter Summary ---
Author Organization [place] [address] Care Team Providers Care Bias Cutter Name Role Phone Sharee Segovia APRN Primary Care Provider [phone] Reason for Visit * Reason Onset Date Comments Orders 07/26/2018 Encounter Details Date Type Department Care Team (Late Contact Info) Description 07/26/2018 Telephone SEP [facility] [address] [place] [address] Sharee Segovia APRN [address] [place], [place] [id number] Orders Social History Tobacco Use Types Packs/Day Years [...] of Assessment Author No 04/19/2018 9:02 AM EST Sharee Segovia APRN * Is the person blind or [...] Sharee García APRN documented in this encounter Miscellaneous Notes * Telephone Encounter - Birdie Amor RMA - 07/26/2018 5:30 PM EDT faxed * Telephone Encounter - Deena Schmidt CCMA - 07/26/2018 4:08 PM EDT Pt needs an order for a 4 wheeled walked to help with ADL and reduced risk of fall. Please sent to [facility] at fax [phone]. Pt was seen today by Sharee. documented in this encounter Plan of Treatment [...] an ideal body weight General No Silva Mathew, THEO HEMOGLOBIN A1C < 7.0 Result Component 6.6( [...] documented as of this encounter Care Teams Bias Cutter Relationship Specialty Start Date End Date Sharee Segovia APRN [address] [place], [place] [address] PCP - General Nurse Practitioner-Family 09/21/16 documented as of this encounter
--- OUTSIDE RECORDS SUMMARY | 2024-02-16 14:50 | XMS_ITS | Encounter Summary ---
Author Organization [place] [address] Care Team Providers [facility] Name Role Phone SegoviaSharee nichols NIKO Primary Care Provider [phone] Reason for Visit * Reason Comments Hospital Follow Up pt was in hospital f or 3 days one day ICU . Pt BS and BP dropped and was very lathargic . Pt sts that she had fallen and laid in [facility] for 30 mins. Pt sts that she isn't feeling better . Medication Refill Pt is needing basagl ar insulin quick pens Encounter Details Date Type Department Care Team (Late st Contact Info) Description 08/15/2018 10:40 AM EDT Office Visit [facility] [place] [address] [place] [id number] Aimee Garcia APRN [address] [place] [id number] Hospital discharge follow-up (Primary Dx); JACK (acute kidney injury) (HCC); Chronic diastolic heart failure (HCC); Diabetes mellitus type 2 in obese (HCC) (HCC) Social History Tobacco Use Types Packs/Day [...] Sign Reading Time Taken Comments Blood Pressure 138/80 08/15/2018 10:51 AM EDT Pulse 101 08/15/2018 10:51 AM EDT Temperature 36.8 ??C (98.3 ??F) 08/15/2018 10:51 AM E DT Respiratory Rate 16 08/15/2018 10:51 AM EDT Oxygen Saturation 96% 08/15/2018 10:51 AM EDT Inhaled Oxygen Concentration - - Weight 107 kg (236 lb) 08/15/2018 10:51 AM EDT Height 165.1 cm (5' 5 ) 08/15/2018 10:51 AM EDT Body Mass Index 39.27 08/15/2018 10:51 AM EDT documented in this encounter Functional [...] Assessment Author Yes 08/14/2018 1:48 PM Susan Centeno RN * Because of a physical, mental or emotional condition, does this person have difficulty doing errands alone such as visiting a doctor's office or shopping? Answer Date of Assessment Author Yes 08/14/2018 1:48 PM Susan Centeno RN documented as of this encounter Mental Status * Because of a physical, mental or emotional condition, does this person have serious difficulty concentrating, remembering or making decisions? Answer Entry Date Author No 08/14/2018 1:48 PM Susan Centeno RN documented in this encounter Ordered Prescriptions Prescription Sig Dispense Quantity Refills Last Filled Start Date End Date Insulin glargine (BASAGLAR KWIKPEN U-100 INSULIN) 100 unit/mL (3 mL) SubQ Insulin PenIndications:Di abetes mellitus type 2 in obese Subcutaneous (Inject under the skin) 20 Units every evening. 3 mL 6 08/15/2018 9 documented in this encounter Progress Notes * Amiee Garcia APRN - 08/15/2018 10:40 AM EDT Assessment Diagnoses and all orders for this visit: Hospital discharge follow-up Comments: 08/12/18 - 08/14/18 for hypovolemic chandrakant, fall, schizoaffective disorder, chronic heart failure and JACK JACK (acute kidney injury) (HCC) (Chronic) Overview: 08/12/18: GFR 13, Cr 3.38 > BP and oral diabetes meds stopped, IVF > 08/14/18 GFR 42, Cr 1.[address] Johnson in hospital Continue same and recheck 2 week Chronic diastolic heart failure (HCC) (Chronic) Diabetes mellitus type 2 in obese (HCC) (Chronic) Overview: Lab Results Component Value Date HGBA1C 6.6 (H) 04/19/2018 HGBA1C 6.6 08/09/2017 HGBA1C 6.8 05/02/2017 Metformin stopped due to acute renal injury. Previously on lantus 36u, had hypoglycemia so decreased to 20u/nightly. Will continue same to allow for renal recovery and follow-up 2 weeks Orders: - Insulin glargine (BASAGLAR KWIKPEN U-100 INSULIN) 100 unit/mL (3 mL) SubQ Insulin Pen; Subcutaneous (Inject under the skin) 20 Units every evening. Dispense: 3 mL; Refill: 6 Offered inpatient rehab. Patient declined. Offered home health, PT/OT - patient declined. Discussedfall safety. Strength building. Reviewed appropriate diet and fluids. Should follow-up in 2 weeks to have BMP repeated. Progress Note: Vitals: 08/15/18 1051 BP: 138/80 Pulse: 101 Resp: 16 Temp: 98.3 ??F (36.8 ??C) TempSrc: Temporal SpO2: 96% Weight: 236 lb (107 kg) Height: 5' 5 (1.651 m) SUBJECTIVE: Chief Complaint Patient presents with ??? Hospital Follow Up pt was in hospital for 3 days one day ICU . Pt BS and BP dropped and was very lathargic . Pt sts that she had fallen and laid in [facility] for 30 mins. Pt sts that she isn't feeling better . ??? Medication Refill Pt is needing basaglar insulin quick pens HPI: Hospital Follow-Up: Hospital/ER Follow-Up: Ms. Palm is a 68 y.o. female here for hospital follow up. She was admitted 08/12/18 and discharged08/14/18 with a diagnosis of hypovolemic shock, falls, schizoaffective disorder, chronic heart failure, and acute kidney injury.. Hx of schizoaffective disorder. Lives at [facility]. Ambulates with walker. Had an episode of shaking the night of 08/11/18 causing her to fall and land on right hip. Didn't seek out medical attention at the time because she was concerned she would get evicted from this living center. The following morning she was hypoglycemic and hypotensive so taken to hospital. Did have insulin adjustmentduring last office visit 2 weeks ago from 20u to 36u. Renal function improved with IVF. BP and heart rate improved with med adjustment. PO diabetes medications stopped d/t JACK. Has continued on insulin. She has only been home 18 hours. Still doesn't feel well with fatigue - generalized weakness, right hip pain. Denies chest pain, shortness of breath or palpitations. Denies orthostatic sx. She is compliant with discharge medications / treatment. Her insurance does not cover lantus - basaglar is preferred. She is not having medication side effects. Review of Systems Constitutional: Positive for fatigue. Negative for fever. Respiratory: Negative for cough, shortness of breath and wheezing. Cardiovascular: Negative for chest pain, palpitations and leg swelling. Gastrointestinal: Negative for abdominal pain, constipation, diarrhea and vomiting. Musculoskeletal: Positive for arthralgias, gait problem and myalgias. Skin: Negative for rash and wound. Hematological: Negative for adenopathy. Does not bruise/bleed easily. Psychiatric/Behavioral: Positive for behavioral problems and confusion. Negative for sleep disturbance. OBJECTIVE: Physical Exam Constitutional: She appears well-developed and well-nourished. HENT: Head: Normocephalic and atraumatic. Eyes: Pupils are equal, round, and reactive to light. Neck: Normal range of motion. Neck supple. No thyromegaly present. Cardiovascular: Normal rate, regular rhythm and normal heart sounds. Exam reveals no gallop and no friction rub. No murmur heard. Pulmonary/Chest: Effort normal and breath sounds normal. She has no wheezes. She has no rales. Abdominal: Soft. There is no tenderness. There is no rebound and no guarding. Musculoskeletal: She exhibits no edema. Right ankle: She exhibits deformity. Left ankle: She exhibits deformity. Lymphadenopathy: She has no cervical adenopathy. Neurological: She is alert. No cranial nerve deficit. Skin: Skin is warm and dry. No rash noted. No erythema. No pallor. Psychiatric: Her behavior is normal. Cognition and memory are impaired. documented in this encounter Plan of Treatment [...] as of this encounter Visit Diagnoses Diagnosis Hospital discharge follow-up- Primary Other follow-up examination JACK (acute kidney injury) (HCC) Acute kidney failure, unspecified Chronic diastolic heart failure (HCC) Chronic diastolic heart failure Diabetes mellitus type 2 in obese Type II or unspecified type diabetes mellitus without mention of complication, not stated as uncontrolled documented in this encounter Discontinued Medications Medication Sig Discontinue Reason Start Date End Da te insulin glargine U-100 (LANTUS) 100 unit/mL SubQ Solution Subcutaneous (Inject under the skin) 20 Units every evening. DELETE- Stopped by provider 08/14/2018 08/15/2018 documented as of this encounter Additional Health Concerns Assessment Noted Time PHQ-9 Depression Total Score: 2 05/21/20 19 9:40 AM EDT A fall risk assessment has been complete d for the patient 05/17/2018 8:17 AM EDT PHQ-2 Depression Total Score: 2 07/27/19 9:40 AM EDT documented as of this encounter Care Teams [facility] Relationship Specialty Start Date End Date Sharee Segovia APRN [address] [place], [place] [id number] PCP - General Nurse Practitioner-Family 09/21/16 documented as of this encounter
--- OUTSIDE RECORDS SUMMARY | 2024-02-16 14:50 | XMS_ITS | Encounter Summary ---
Author [place] [address] Care Team Providers Care Corn Grinder Name Role Phone Sharee Segovia APRN Primary Care Provider [phone] Reason for Visit * Reason Comments Fall Pt fell last night a fter dinner, states she was shaking all over , causing her to fall, began with right sided hip pain. 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 Hypoglycemia Medication recently adjusted inital BG was 54, pt was given a PB sandwich and Coke, BG 61, then BG 57, treated with oral glucose, last BG 71 per Engine Tester. * Auth/Cert/Inpt Specialty Diagnoses / Procedures Referred By Contac t Referred To Contact Diagnoses Acute kidney injury (HCC) Contusion of right hip, initial encounter Hypotension, unspecified hypotension type Referral ID Status Reason Start Date Expiration Date Visits Re quested Visits Authorized [id number] 1 1 Encounter Details Date Type Department Care Team (Latest Contact Info) Description 08/12/2018 7:17 AM EDT - 08/14/2018 2:37 PM EDT Hospital Encounter FTT [address] [facility] [address] [place] [address] Raul Castillo MD [address] [place] [address] Mayo Batres MD [address] [place] [address] Hypotension, unspecified hypotension type (Primary Dx); Acute kidney injury (HCC); Contusion of right hip, initial encounter; Sepsis, due to unspecified organism (HCC) Discharge Disposition: Home or Self Care Social History Tobacco Use Types Packs/Day Years [...] Sign Reading Time Taken Comments Blood Pressure 172/74 08/14/2018 9:11 AM EDT Pulse 60 08/14/2018 9:11 AM EDT Temperature 36.7 ??C (98 ??F) 08/14/2018 9:11 AM EDT Respiratory Rate 16 08/14/2018 9:11 AM EDT Oxygen Saturation 100% 08/14/2018 9:14 AM EDT Inhaled Oxygen Concentration - - Weight 107 kg (235 lb 14.3 oz) 08/13/2018 5:00 A M EDT Height 165.1 cm (5' 5 ) 08/12/2018 12:45 PM EDT Body Mass Index 39.25 08/12/2018 12:45 PM EDT documented in this encounter Functional [...] Susan Kaye RN documented in this encounter Discharge Summaries * Mayo Batres MD - 08/14/2018 12:05 PM EDT [facility] Discharge Summary Patient Name: Faby Palm : 1950 Admit Date: 08/12/2018 Discharge Date: 08/14/2018 Admitting Physician: Mayo Batres MD Discharging Physician: Mayo Batres MD Reason for Hospitalization: Active Hospital Problems *Hypovolemic shock (HCC) Falls, initial encounter Severe obesity (BMI 35.0-39.9) with comorbidity (HCC) Schizoaffective disorder, depressive type (HCC) Diabetes mellitus type 2 in obese (HCC) Chronic diastolic heart failure (HCC) ASHD (arteriosclerotic heart disease) JACK (acute kidney injury) (HCC) Essential hypertension Brief Hospital Summary: Faby Palm is a 68 y.o. female admitted for hypovolemic shock and JACK. Nephrology consulted. Patient treated with IV fluids. Blood pressure and renal function improved accordingly. Patient also found to have UTI, which was treated with Rocephin. Urine culture positive for bowen-sensitive E coli.She was transitioned to oral Keflex. Patient discharged home. Labs and imaging follow-up needed: Repeat CBC and BMP within 1 week Consultants: Nephrology Discharge Exam: General appearance: Well appearing female. No acute distress. Lungs: Clear to auscultation bilaterally. No wheezes, rales, rhonchi. Normal effort. Heart: Regular rate and rhythm. No murmur, rub, or gallop. Abdomen: Soft. No tenderness. No distention. Normal bowel sounds. Extremities: Trace edema . Pulses: Distal pulses are intact. Skin: Warm, dry. Neurologic: Alert. No focal deficits. Correct Full Discharge Med List: Medication List START taking these medications cephALEXin 500 mg Cap Dose: 500 mg Qty: 14 Cap Refills: 0 Commonly known as: KEFLEX 500 mg, Oral, EVERY 12 HOURS SCHEDULED insulin glargine U-100 100 unit/mL Soln Dose: 20 Units Qty: 10 mL Refills: 0 Commonly known as: LANTUS 20 Units, Subcutaneous, EVERY EVENING (INSULIN) Replaces: JOHNAGLBEKAH NUNEZPEN U-100 INSULIN 100 unit/mL (3 mL) Inpn CHANGE how you take these medications amLODIPine 5 mg Tab Dose: 5 mg Qty: 30 Tab Refills: 0 Commonly known as: NORVASC 5 mg, Oral, DAILY What changed: ?? medication strength ?? how much to take CONTINUE taking these medications acetaminophen 325 mg Tab Dose: 650 mg Refills: 0 Commonly known as: TYLENOL albuterol 90 mcg/actuation Hfaa Dose: 2 Puff Refills: 0 Commonly known as: PROVENTIL HFA; VENTOLIN HFA ARIPiprazole 30 mg Tab Dose: 30 mg Qty: 30 Tab Refills: 0 Commonly known as: ABILIFY 30 mg, Oral, DAILY aspirin 81 mg Chew [...] mg Refills: 0 Commonly known as: GLUCOTROL lamoTRIgine 100 mg Tab Dose: 50 mg Refills: 0 Commonly known as: LaMICtal Melatonin 3 mg Tab Dose: 5 mg Refills: 0 oxybutynin 10 mg Tr24 Dose: 10 mg Qty: 30 Tab Refills: 2 Commonly known as: DITROPAN-XL 10 mg, Oral, DAILY pantoprazole 40 mg Tbec Dose: 40 [...] g Refills: 0 Commonly known as: CARAFATE traZODone 50 mg Tab Dose: 150 mg Qty: 90 Tab Refills: 2 Commonly known as: DESYREL 150 mg, Oral, NIGHTLY VASCEPA 1 gram Cap Dose: 1 g Refills: 0 Generic drug: icosapent ethyl STOP taking these medications BASAGLAR KWIKPEN U-100 INSULIN 100 unit/mL (3 mL) Inpn Generic drug: Insulin glargine Replaced by: insulin glargine U-100 100 unit/mL Soln fUROsemide 20 mg Tab Commonly known as: LASix isosorbide mononitrate 120 mg Tb24 Commonly known as: IMDUR lisinopril 20 mg Tab tablet Commonly known as: PRINIVIL;ZESTril loperamide 2 mg Cap Commonly known as: IMODIUM metFORMIN XR 500 mg Tb24 Commonly known as: GLUCOPHAGE-XR miconazole 2 % Crea Commonly known as: MICOTIN nitroGLYCERIN 0.4 mg Subl Commonly known as: NITROSTAT omega-3 acid ethyl esters 1 gram Cap Commonly known as: LOVAZA PARoxetine 12.5 mg Tb24 Commonly known as: PAXIL-CR risperiDONE 0.5 mg Tab Commonly known as: RisperDAL Where to Get Your Medications These medications were sent to [id number] [place] [address] [address] [phone] [address] [facility] [address] ?? amLODIPine 5 mg Tab ?? cephALEXin 500 mg Cap ?? insulin glargine U-100 100 unit/mL Soln Condition at Discharge: good Disposition: Home Follow-up: Sharee Segovia ARNP [address] [place] [address] Call today For follow up with primary care within 1 week Time spent on discharge: 30 to 74 minutes Mayo Batres MD 08/14/2018 documented in this encounter Discharge Instructions * Discharge Instructions* Charity Kaye RN - 08/14/2018 1:50 PM EDT Cephalexin tablets or capsules What is this medicine? CEPHALEXIN (sef a NATALY in) is a cephalosporin antibiotic. It is used to treat certain kinds of bacterial infections It will not work for colds, flu, or other viral infections. This medicine may be used for other purposes; ask your health care provider or pharmacist if you have questions. COMMON BRAND NAME(S): Biocef, Daxbia, Keflex, Keftab What should I tell my health care provider before I take this medicine? They need to know if you have any of these conditions: -kidney disease -stomach or intestine problems, especially colitis -an unusual or allergic reaction to cephalexin, other cephalosporins, penicillins, other antibiotics, medicines, foods, dyes or preservatives - or trying to get -breast-feeding How should I use this medicine? Take this medicine by mouth with a full glass of water. Follow the directions on the prescription label. This medicine can be taken with or without food. Take your medicine at regular intervals. Do not take your medicine more often than directed. Take all of your medicine as directed even if you think you are better. Do not skip doses or stop your medicine early. Talk to your dining service worker regarding the use of this medicine in children. While this drug may be prescribed for selected conditions, precautions do apply. Overdosage: If you think you have taken too much of this medicine contact a poison control center or emergency room at once. NOTE: This medicine is only for you. Do not share this medicine with others. What if I miss a dose? If you miss a dose, take it as soon as you can. If it is almost time for your next dose, take only that dose. Do not take double or extra doses. There should be at least 4 to 6 hours between doses. What may interact with this medicine? -probenecid -some other antibiotics This list may not describe all possible interactions. Give your health care provider a list of all the medicines, herbs, non-prescription drugs, or dietary supplements you use. Also tell them if you smoke, drink alcohol, or use illegal drugs. Some items may interact with your medicine. What should I watch for while using this medicine? Tell your doctor or health pharmacist critical care if your symptoms do not begin to improve in a few days. Do not treat diarrhea with over the counter products. Contact your doctor if you have diarrhea thatlasts more than 2 days or if it is severe and watery. If you have diabetes, you may get a false-positive result for sugar in your urine. Check with your doctor or health pharmacist critical care. What side effects may I notice from receiving this medicine? Side effects that you should report to your doctor or health pharmacist critical care as soon as possible: -allergic reactions like skin rash, itching or hives, swelling of the face, lips, or tongue -breathing problems -pain or trouble passing urine -redness, blistering, peeling or loosening of the skin, including inside the mouth -severe or watery diarrhea -unusually weak or tired -yellowing of the eyes, skin Side effects that usually do not require medical attention (report to your doctor or health pharmacist critical care if they continue or are bothersome): -gas or heartburn -genital or anal irritation -headache -joint or muscle pain -nausea, vomiting This list may not describe all possible side effects. Call your doctor for medical advice about side effects. You may report side effects to FDA at 3-759-NIR-6821. Where should I keep my medicine? Keep out of the reach of children. Store at room temperature between 59 and 86 degrees F (15 and 30 degrees C). Throw away any unused medicine after the expiration date. NOTE: This sheet is a summary. It may not cover all possible information. If you have questions about this medicine, talk to your doctor, pharmacist, or health care provider. ?? 2019 Elsevier/Gold Standard (2008-05-28 17:09:13) documented in this encounter Medications at Time of Discharge albuterol (PROVENTIL HFA; VENTOLIN HFA) 90 mcg/actuation Inhl HFA Aerosol InhalerIndications:C hronic diastolic CHF (congestive heart failure) (HCC),Essential hypertension,ASHD (arteriosclerotic heart disease),S/P ablation of atrial flutter,Old MN (myocardial infarction) Inhale 2 Puffs into the lungs 0800, 1200, 1600, 2000. amLODIPine (NORVASC) 5 mg Oral Tablet Take 1 Tab by mouth daily. 30 Tab 08/14/2018 aspirin (ASPIRIN) 81 mg Oral Tablet, Chewable Take 1 Tab by mouth daily. 30 Tab 11 09/21/2017 atorvastatin (LIPITOR) 20 mg Oral Tablet TAKE ONE TABLET BY MOUTH NIGHTLY 30 Tab 1 03/24/2017 busPIRone (BUSPAR) 5 mg Oral Tablet Take 5 mg by mouth 2 times daily. clopidogrel (PLAVIX) 75 mg Oral Tablet Take 75 mg by mouth daily. ferrous sulfate 325 mg (65 mg iron) Oral Tablet Take 1 Tab by mouth 2 times daily (with meals). 60 Tab 5 04/04/2015 gabapentin (NEURONTIN) 100 mg Oral Capsule Take 200 mg by mouth 4 times daily. glipiZIDE (GLUCOTROL) 10 mg Oral TabletIndications:NS NORMA (non-ST elevated myocardial infarction) (HCC),ASHD (arteriosclerotic heart disease),Essential hypertension,Chronic diastolic CHF (congestive heart failure) (HCC),Hyperlipidemia , unspecified hyperlipidemia type Take 10 mg by mouth 2 times daily. icosapent ethyl (VASCEPA) 1 gram Oral Capsule Take 1 g by mouth 2 times daily. lamoTRIgine (LAMICTAL) 100 mg Oral TabletIndications:NS NORMA (non-ST elevated myocardial infarction) (HCC),ASHD (arteriosclerotic heart disease),Essential hypertension,Chronic diastolic CHF (congestive heart failure) (HCC),Hyperlipidemia , unspecified hyperlipidemia type Take 50 mg by mouth daily basketball assembler. And Takes 100 mg at night pantoprazole (PROTONIX) 40 mg Oral Tablet, Delayed Release (E.C.) Take 1 Tab by mouth daily. 30 Tab 2 09/21/2017 QUEtiapine (SEROQUEL) 50 mg Oral Tablet Take 100 mg by mouth nightly. RANEXA 1,000 mg Oral Tablet Sustained Release 12 hrIndications:Stable angina (HCC) TAKE ONE TABLET BY MOUTH EVERY 12 HOURS 60 Tab 10/06/2017 Saccharomyces boulardii (FLORASTOR) 250 mg Oral Capsule Take 250 mg by mouth 2 times daily. sertraline (ZOLOFT) 100 mg Oral Tablet Take 200 mg by mouth daily. Reported on 08/12/2016 sucralfate (CARAFATE) 100 mg/mL Oral Suspension Take 1 g by mouth 4 times daily (before meals and nightly). acetaminophen 325 mg Oral Tab Take 650 mg by mouth every 4 hours as needed for Pain. Pt takes 1 to 2 tabs as needed 9 ARIPiprazole (ABILIFY) 30 mg Oral Tablet Take 1 Tab by mouth daily. 30 Tab 02/23/2017 9 cephALEXin (KEFLEX) 500 mg Oral Capsule Take 1 Cap by mouth every 12 hours for 7 days. 14 Cap 08/14/2018 9 Melatonin 3 mg Oral Tablet Take 5 mg by mouth nightly. 9 traZODone (DESYREL) 50 mg Oral Tablet Take 3 Tabs by mouth nightly. 90 Tab 2 07/12/2018 9 documented as of this encounter Ordered Prescriptions Prescription Sig Dispense Quantity Refills Last Filled Start Date End Date amLODIPine (NORVASC) 5 mg Oral Tablet Take 1 Tab by mouth daily. 30 Tab 08/14/2018 cephALEXin (KEFLEX) 500 mg Oral Capsule Take 1 Cap by mouth every 12 hours for 7 days. 14 Cap 08/14/2018 9 insulin glargine U-100 (LANTUS) 100 unit/mL SubQ Solution Subcutaneous (Inject under the skin) 20 Units every evening. 10 mL 08/14/2018 9 documented in this encounter Discharge Disposition Disposition Code Departure Means Destination Home or Self Care Other Faci lity documented in this encounter Progress Notes * Liz Morrison - 08/14/2018 2:37 PM EDT 08/13/18 1132 Pastoral Care Encounter Visited With Patient Date of visit 08/13/18 Visit Type Follow-up Need to follow-up? Yes Mandaeism Needs Prayer Spiritual Needs Denomination? Mandaeism Sacramental Needs Communion Requested Yes Communion Received Yes Pastoral Care Issues Coping Resources Prayer Pastoral Care Plan/Intervention Plan/Intervention Sacramental;Prayer Plan/Intervention Comments Jacqueline 08/15/2018 Liz Morrison * Liz Morrison - 08/14/2018 2:37 PM EDT 08/14/18 1321 Pastoral Care Encounter Visited With Patient Date of visit 08/14/18 Visit Type Follow-up Need to follow-up? Yes Mandaeism Needs Prayer Spiritual Needs Denomination? Mandaeism Pastoral Care Plan/Intervention Plan/Intervention Prayer Plan/Intervention Comments Wilber 08/15/2018 Liz Morrison * Charity Kaye, ROLF - 08/14/2018 1:46 PM EDT Call placed to [place], with [facility], at [phone]. Notified of patient's discharge. He is unable to transport patient home but provided a phone number of a [employer]. Call placed to [facility]. According to the medical office receptionist assistant, they may be able to transport patient. She will attempt to find a driver recruiter and call back. Waiting for call back at this time At 1355, [employer] called back. Have located a driver recruiter. Will have to call [place] to receive paymentprior to picking patient up. Will call back with a time of pick pulling machine tender. At 1415, [employer] called stating they would be here in 10 minutes. Discharge instructions reviewed with patient, who verbalized an understanding. Assisted patient to wheelchair. Transported to [facility]. All personal belongings taken from room. * Donya May MD - 08/14/2018 9:15 AM EDT Images from the original note were not included. [facility] Daily Progress Note Assessment & Plan : Hypotension - no appreciable drop in Hct. No leukocytosis & no fever. - bradycardic with multiple outpt meds that can cause bradycardia with low BP and question if this was etiology - consider adrenal function evaluation - No lactic acidosis. - improved with IVFs. ??Acute on Chronic Kidney Disease??Stage 3 - S.cr appears to have had been ~ 1.3. - Last??random urine microalbumin :creatinine ratio??was 23 in 05/2018 which seems to R/O significant??diabetic nephropathy. No persistent hematuria. - suspect hemodynamically mediated JACK - creat improved to 1.34mg/dl from 3.38mg/dl. - push po fluids - Ok for discharge when ok with primary team. ??Chronic diastolic heart failure??(HCC) - 2D echo in 04/2017 showed LVEF??60-65% Abnormal tissue doppler signal c/w impaired diastolic function.?Diabetes mellitus type 2 in obese??(HCC) - HbA1c of 6.6% on Metformin, Glucotrol & insulin as outpatient - off metformin and glucotrol due to JACK - defer to primary team as to re-starting one or both of these on discharge.?Schizoaffective disorder,??depressive type (HCC) - defer to primary team.?Severe obesity??(BMI 35.0-39.9) with comorbidity (HCC) - stable ??Falls, initial encounter - PT/OT ??Essential hypertension - amlodipine started - gradually re introduce if needed with avoidance of av seven blockers. ?? Subjective: 68 y.o. female who we are seeing in consultation for JACK ?? Interval history Events overnight reviewed. In good spirits. Asking when she can go home. ?? SH: No family present. ?? Review of Systems Constitutional: positive for fatigue Respiratory: negative Cardiovascular: negative Gastrointestinal: negative Genitourinary:negative Neurological: positive for memory problems and weakness ?? Exam: Constitutional Faby is alert, chronically ill [id number] normocephalic, atraumatic, sclera clear, EOMI Respiratory clear to auscultation bilaterally, normal airflow, normal effort and symmetrical chest expansion Cardiovascular S1, S2 normal; no murmur, rub or gallop; regular rate and rhythm Abdomen soft, non-tender; bowel sounds normal; no masses, no organomegaly Musculoskeletal-NeuroPsych no focal neurological deficits, affect appropriate and alert, oriented x3 Extremities no cyanosis, clubbing or edema Skin no rashes or suspicious lesions, no evidence of bleeding or bruising ?? Objective: VITALS: Vitals: 08/13/182001 BP: 160/70 Pulse: 51 Resp: 20 Temp: 97.6 ??F (36.4 ??C) SpO2: 100% Temp (24hrs), Av.3 ??F (36.3 ??C), Min:96.8 ??F (36 ??C), Max:97.6 ??F (36.4 ??C) BP Min: 137/59 Max: 160/70 Pulse Av.9 Min: 51 Max: 79 24HR INTAKE/OUTPUT: Intake/Output Summary (Last 24 hours) at 08/14/2018 0706 Last data filed at 08/13/2018 2129 Gross per 24 hour Intake 2695.08 ml Output 220 ml Net 2475.08 ml Wt Readings from Last 3 Encounters: 08/13/18 235 lb 14.3 oz (107 kg) 07/28/18 233 lb (105.7 kg) 07/26/18 216 lb (98 kg) Data:- CBC: Recent Labs 08/12/18 0747 08/13/18 0550 WBC 6.2 4.4 HGB 11.0* 9.9* HCT 32.8* 30.2* PLT 130* 118* RENAL FUNCTION PANEL: Recent Labs 08/12/18 1350 08/13/18 0550 08/14/18 0559 NA 141 144 148* K 4.0 4.0 4.3 CL 106 112* 111* CO2 22 23 27 BUN 46* 35* 20 CREATININE 2.96* 1.94* 1.31* CALCIUM 8.3* 8.7* 9.6 PHOS -- 3.1 3.2 Lab Results Component Value Date ALKPHOS 121 08/12/2018 ALT 8 08/12/2018 AST 13 08/12/2018 PROT 6.0 (L) 08/12/2018 LABBILI 0.2 08/12/2018 Recent Labs 08/12/18 0902 SPECGRAV 1.015 UAPROTEIN 30 * BLOODU Trace-Intact* NITRITE Positive* LEUKOCYTESUR Large* WBCUA 50* RBCUA 1 Coagulation: Invalid input(s): PT ABGs: Microbiology: Us Renal And Bladder Result Date: 08/13/2018 US KIDNEYS AND BLADDER, 08/13/2018 10:50 AM CLINICAL HISTORY: -JACK COMPARISON: None. PROCEDURE COMMENTS: Routine sonographic evaluation of the kidneys and bladder with herbicide service sales representative images and anime designer notes sent to PACS for radiologist review. FINDINGS: RIGHT: 11.1 cm. No hydronephrosis, solid-appearing mass, or shadowing stone. LEFT: 10.5 cm. Lobular contour midpole left kidney is likely a dromedary hump. No hydronephrosis. PELVIS: The bladder is sonographically normal. Bilateral ureteral jets seen. No hydronephrosis. - - Dnoya May MD * Charity Kaye RN - 08/13/2018 6:53 PM EDT Arrived from ICU at 1750 via wheelchair. Skin assessment completed upon arrival. [place]/ groin isred but intact. Sitting on side of bed eating dinner. Bed alarm in use to prevent falls. Is reporting that PIV in left AC is hurting. Will remove once she's finished eating. No other issues voiced atthis time. * Mayo Batres MD - 08/13/2018 4:42 PM EDT Images from the original note were not included. PROGRESS NOTE ASSESSMENT & PLAN: Hypovolemic shock. Hypotension at admission. Improving with fluid resuscitation. - BP improved with IVF - Stop IVF - Encourage PO hydration ?? JACK on CKD. Stage 3 CKD - Nephrology consulted, appreciate recs - IVF stopped - Monitor renal function, improving ?? UTI. UA reviewed. - Rocephin - Ur Cx + E coli ?? Falls. Suspect due to hypotension vs hypoglycemia - PT eval ?? Diabetes - Lantus (reduced dose) - Novolog ?? Chronic diastolic heart failure - Hold Lasix - Caution with IVF ?? Schizoaffective disorder - Abilify - Seroquel - Lamictal - Sertraline ?? CAD - ASA - Plavix - Atorvastatin ?? HTN - Hold home antiHTN meds ?? Diabetic neuropathy - Gabapentin ?? OAB - Oxybutynin ?? GERD - Protonix ?? PPX: SCD FEN: 60 GM CONSISTENT CARB DIET Dispo: Transfer to Med/Surg Active Hospital Problems Diagnosis ??? *Hypovolemic shock (HCC) ??? Falls, initial encounter ??? Severe obesity (BMI 35.0-39.9) with comorbidity (HCC) ??? Schizoaffective disorder, depressive type (HCC) ??? Diabetes mellitus type 2 in obese (HCC) ??? Chronic diastolic heart failure (HCC) ??? ASHD (arteriosclerotic heart disease) ??? JACK (acute kidney injury) (HCC) ??? Essential hypertension SUBJECTIVE: Faby Palm is a 68 y.o. female being followed for Hypovolemic shock (HCC). Seen and examined today. Patient reports feeling better today. No complaints. ROS: Denies fever. OBJECTIVE: BP 143/60 Pulse 61 Temp 96.8 ??F (36 ??C) (Axillary) Resp 21 Ht 5' 5 (1.651 m) Wt 235 lb14.3 oz (107 kg) SpO2 99% ? No BMI 39.25 kg/m?? I/O last 3 completed shifts: In: 2540 [P.O.:1080; I.V.:1460] Out: 2520 [Urine:2520] Weight: 235 lb 14.3 oz (107 kg) Constitutional: NAD Pulmonary: CTAB. Normal effort Cardiovascular: RRR Abdominal: Soft. NT ND NBS Extremities: Trace edema BLE Pulses: Distal pulses intact Skin: Warm, dry Neurological: Alert. No focal deficits Labs: Laboratory data and diagnostic testing reviewed from 08/13/18. Mayo Batres MD * Nighat Jules, PT - 08/13/2018 4:35 PM EDT 08/13/18 1520 PT Subjective Note Type Evaluation Patient Room/Unit 2409 PT Subjective Comments #1 On EOB, eating. Agreeable and motivated. Hopes to go home soon. Discharge Information Evaluation to serve as discharge summary if no further treatment provided before the facility discharge Admitting Diagnosis Admitted with hypoglycemia, JACK, R hip contusion from fall Past Med Hx Atrial flutter ([facility]), CHF (congestive heart failure) ([facility]), COPD (chronic obstructive pulmonary disease) ([facility]), DDD (degenerative disc disease), Diabetes mellitus ([facility]), Hypertension, Intellectual disability (05/03/2017), MN (myocardial infarction) ([facility]), RLS (restless legs syndrome), Schizoaffective disorder, depressive type ([facility]) (02/19/2017), Stroke ([facility]) (2009), Suicide attempt ([facility]), Urinary incontinence, and Yeast infection Diagnostic Testing R hip xray No acute abnormality of the hip or pelvis.; CXR No acute finding. Pain Screening PT/OT Patient Currently in Pain Yes Pain Rating 8 Pain Location Hip Pain Orientation Right;Anterior Pain Intervention(s) Rest Additional Comments Increased pain with walking, pt tolerates well Cognition Orientation Intact Arousal Normal Safety Awareness Impaired Safety Awareness Impairment Minimal Impairments: Needs up to 25% input/direction from therapist in order to identify safety issues and maintain safety. Affect/Ability to cope Normal Command Following Normal Memory Intact Communication Intact Precautions Therapy Precautions Yes Precaution info given Yes;To use call light to request assistance with all mobility Home Living/Prior Function Type of Home House Home Layout One level;Ramped entrance Number of Steps 0 Home Equipment 4 wheel walker;Shower chair Level of Assistance Needs assistance with ADLs;Needs assistance with homemaking;Independent with functional transfers;Ambulatory in home Lives With Personal Care Additional Comments Pt lives at [facility]. Uses 4WW at all times. Stays on first floor . Has home health aide 7 days per week for ADL's. Gets assistance for laundry, med management and cooking. Pt also reports she gets home PT twice a week. Coord/Sensation Assessed Grossly Intact/Normal Perception Perception Grossly intact/normal Observation Presentation Patient seated edge of bed Observation IV;Digital Designer Vitals VSS UE Assessment LUE Assessment WFL RUE Assessment WFL LE Assessment LLE Assessment X LLE Additional Comments generalized hip stabilizer weakness RLE Assessment X RLE Additional Comments generalized hip stabilizer weakness Bed Mobility Additional Comments up on EOB Transfers Sit to Stand Stand by assist Stand to Sit Supervision Additional Comments to RW; some effort to stand initially Gait Gait Stand by assist Gait Distance (Feet) 110 Feet Assistive Device 2 Wheel walker Pattern Slow chhaya Additional Comments no overt LOB, gait safe. Pt turns safely. Vitals VSS AM PAC: How much help from another person does the patient currently need... turning from your back to your side while in a flat bed without using bedrails? 3 moving from lying on your back to sitting on the side of a flat bed without using bedrails? 3 moving to and from a bed to a chair? 3 standing up from a chair using your arms (e.g. wheelchair, or bedside chair)? 3 need to walk in hospital room? 3 climbing 3-5 steps with a railing? 1 AM PAC: BASIC MOBILITY SCORING AM PAC Moblity Raw Score 16 AM PAC Mobility CMS 0-100% Functional Percentage 47.12 AM PAC Mobility CMS G Code Modifier CK Balance Sitting Balance 3+/5 sits without UE support for 30 seconds or greater Standing Balance 2/5 indep, requires both UE support Education Education To use call light to request assistance with all mobility;Patient/Family Education;Role of Therapy;Cues for proper technique;Safety with mobility Patient Safety Patient Safety Patient seated edge of bed;Bed alarm activated;Nursing notified of status Assessment Assessment Decreased gait;Decreased functional mobility;Decreased balance;Decreased Left Lower Extremity strength;Decreased RightLower Extremity strength;Decreased activity tolerance Prognosis Good;With continued PT s/p acute discharge Rationale for Skilled Therapy Fall Risk;Balance Deficits;Not safe ambulating independently Goals Patient and/or Family Goal To go home today PT GOALS (Yes/No) Yes Add Goals Pt Will Go Supine To Sit Supervision Pt will perform Sit to Stand Supervision Pt Will Ambulate With 2 wheel walker;51-100 feet;Supervision Goal Formulation With patient Time for Goal Achievement/Duration of Treatment 5 treatments Plan Treatment/Interventions Gait training;Bed mobility;Neuromuscular re- education;Balance training;Functional transfer training;LE strengthening/ROM PT Frequency 3-5x/week Recommendation PT Recommendation Home PT Time In / Time Out 1503/1520 IP PT Evaluation Minutes 9 IP PT Treatment Minutes 8 (gait) * Donya May MD - 08/13/2018 3:23 PM EDT Images from the original note were not included. [facility] Daily Progress Note Assessment & Plan : Hypotension - no appreciable drop in Hct. No leukocytosis & no fever. - bradycardic with multiple outpt meds that can cause bradycardia with low BP. - consider adrenal function evaluation - No lactic acidosis. - improved with IVFs. Acute on Chronic Kidney Disease Stage 3 - S.cr appears to have had been ~ 1.3. - Last random urine microalbumin :creatinine ratio was 23 in 05/2018 which seems to R/O significant diabetic nephropathy. No persistent hematuria. - creat improved to 1.94mg/dl from 3.38mg/dl. - push po fluids Chronic diastolic heart failure (HCC) - 2D echo in 04/2017 showed LVEF 60-65% Abnormal tissue doppler signal c/w impaired diastolic function. Diabetes mellitus type 2 in obese ([facility]) - HbA1c of 6.6% on Metformin, Glucotrol & insulin as outpatient - off metformin and glucotrol and agree with permanent d/c on discharge. - defer to primary team. Schizoaffective disorder, depressive type ([facility]) - defer to primary team. Severe obesity (BMI 35.0-39.9) with comorbidity ([facility]) - stable Falls, initial encounter - walks with walker she says. - need PT/OT Essential hypertension - meds held - gradually re introduce if needed. Subjective: 68 y.o. female who we are seeing in consultation for JACK Interval history Events overnight reviewed. Reports feeling a little better. Sitting on side of bed eating ice creamand coca-cola SH: No family present. Review of Systems Constitutional: positive for fatigue Respiratory: negative Cardiovascular: negative Gastrointestinal: negative Genitourinary:negative Neurological: positive for memory problems and weakness Exam: Constitutional Faby is alert, appears older than stated age, cooperative, in no acute distress, obese, slowed mentation and chronically ill [id number] normocephalic, atraumatic, sclera clear, EOMI Respiratory clear to auscultation bilaterally, normal airflow, normal effort and symmetrical chest expansion Cardiovascular S1, S2 normal; no murmur, rub or gallop; regular rate and rhythm Abdomen soft, non-tender; bowel sounds normal; no masses, no organomegaly Musculoskeletal-NeuroPsych no focal neurological deficits, affect appropriate and alert, oriented x3 Extremities no cyanosis, clubbing or edema Skin no rashes or suspicious lesions, no evidence of bleeding or bruising Objective: VITALS: Vitals: 08/13/18 1000 BP: Pulse: 65 Resp: 18 Temp: SpO2: Temp (24hrs), Av.5 ??F (36.4 ??C), Min:96.8 ??F (36 ??C), Max:97.9 ??F (36.6 ??C) BP Min: 95/74 Max: 138/110 Pulse Av.8 Min: 50 Max: 79 24HR INTAKE/OUTPUT: Intake/Output Summary (Last 24 hours) at 08/13/2018 1523 Last data filed at 08/13/2018 1008 Gross per 24 hour Intake 2180 ml Output 2170 ml Net 10 ml Wt Readings from Last 3 Encounters: 08/13/18 235 lb 14.3 oz (107 kg) 07/28/18 233 lb (105.7 kg) 07/26/18 216 lb (98 kg) Data:- CBC: Recent Labs 08/12/18 0747 08/13/18 0550 WBC 6.2 4.4 HGB 11.0* 9.9* HCT 32.8* 30.2* PLT 130* 118* RENAL FUNCTION PANEL: Recent Labs 08/12/18 0747 08/12/18 1350 08/13/18 0550 NA 140 141 144 K 3.9 4.0 4.0 CL 101 106 112* CO2 26 22 23 BUN 47* 46* 35* CREATININE 3.38* 2.96* 1.94* CALCIUM 9.1 8.3* 8.7* PHOS -- -- 3.1 Lab Results Component Value Date ALKPHOS 121 08/12/2018 ALT 8 08/12/2018 AST 13 08/12/2018 PROT 6.0 (L) 08/12/2018 LABBILI 0.2 08/12/2018 Recent Labs 08/12/18 0902 SPECGRAV 1.015 UAPROTEIN 30 * BLOODU Trace-Intact* NITRITE Positive* LEUKOCYTESUR Large* WBCUA 50* RBCUA 1 Coagulation: Invalid input(s): PT ABGs: Microbiology: Us Renal And Bladder Result Date: 08/13/2018 US KIDNEYS AND BLADDER, 08/13/2018 10:50 AM CLINICAL HISTORY: -JACK COMPARISON: None. PROCEDURE COMMENTS: Routine sonographic evaluation of the kidneys and bladder with herbicide service sales representative images and anime designer notes sent to PACS for radiologist review. FINDINGS: RIGHT: 11.1 cm. No hydronephrosis, solid-appearing mass, or shadowing stone. LEFT: 10.5 cm. Lobular contour midpole left kidney is likely a dromedary hump. No hydronephrosis. PELVIS: The bladder is sonographically normal. Bilateral ureteral jets seen. No hydronephrosis. - - Donya May MD * Mike Dunaway - 08/12/2018 4:42 PM EDT 08/12/18 1642 Pastoral Care Encounter Visited With Patient Date of visit 08/12/18 Visit Type Follow-up Need to follow-up? Yes Mandaeism Needs Prayer Sacramental Needs Has Patient Received SOS? Yes Date of Sacrament of the Sick (Anointing) 08/12/18 Pastoral Care Plan/Intervention Plan/Intervention Sacraments;Prayer 08/12/2018 Mike Dunaway * Liz Morrison - 08/12/2018 4:41 PM EDT 08/12/18 1600 Pastoral Care Encounter Visited With Patient Date of visit 08/12/18 Visit Type Initial Need to follow-up? Yes Mandaeism Needs Prayer Spiritual Needs Denomination? Baptist Mandaeism Affiliation [facility] Has Pts jane community been notified Yes Pastoral Care Issues Pastoral Care Issues Coping Comments Patient shared her previous concerns re housing, but SW had made calls and pt feels at ease. Welder And Fitter assisted pt in calling her fountain roller assembler as she wanted to talk to him directly. Welder And Fitter prayedwith patient for her concerns. Coping Resources Jane Community;Jane;Family;Prayer Pastoral Care Plan/Intervention Plan/Intervention Active Listening;Continue to Follow;Family Support;Prayer;Spiritual-Emotional needs addressed 08/12/2018 Liz Morrison * Donya Chaudhary LSW - 08/12/2018 3:51 PM EDT 08/12/18--Per RN, patient very concerned that she is going to be evicted, placed call to Cec[place] at [facility] and he indicates that patient is not being evicted but they are currently lookinginto locating an intermediate bed in the [place] area so the she can be near her son. Patient will only leave when they have found another place for patient to go to. Made patient aware of this information, patient expressed relief, may need to be reinforced. At discharge, please call Cecilton at [facility] at for assist with transport. * Payton Story, PT - 08/12/2018 2:38 PM EDT 08/12/18 1437 PT Subjective Note Type Chart Review PT Subjective Comments #1 PT orders received and chart review performed. MD notes incomplete at this time. Will f/u once able to access MD notes Therapy delay reason Awaiting MD recommendations Recommendation Time In / Time Out 1437 documented in this encounter H&P Notes * Mayo Batres MD - 08/12/2018 9:32 AM EDT Images from the original note were not included. + Name: Faby Palm ADDRESS: [address] [place], [place] [id number] : 1950 AGE: 68 y.o. Admitting Physician: Mayo Batres MD Date of Admit: 08/12/2018 PCP: Sharee Segovia ARNP Chief Complaint: Fall (Pt fell last night after dinner, states she was shaking all over , causing her to fall, began with right sided hip pain. Pt did not want to come to ED because Painter And Decorator Apprentice of [place] she loves told her she will be evicted if she goes to the hospital again. ) and Hypoglycemia (Medication recently adjusted inital BG was 54, pt was given a PB sandwich and Coke, BG 61, then BG 57, treated with oral glucose, last BG 71 per Engine Tester. ) History of Present Illness: Faby Palm is a 68 y.o. female with past medical history of schizoaffective disorder, diabetes, and HTN, who presents with falls. Patient is a poor historian. She reports feeling shaky around 2200 on day prior to admission. She reports that she did not have her blood sugar checked. Per report, staff at retirement did check FSBG, which was found to be in 50s. She recently had insulin dose increased. She denies fever, chills. She reports urinary frequency. Normal appetite. Past Medical History: Past Medical History: Diagnosis Date ??? Atrial flutter (HCC) EPS, AFL Ablation on 12/31/[address] Tee ??? CHF (congestive heart failure) (HCC) ??? COPD (chronic obstructive pulmonary disease) (HCC) ??? DDD (degenerative disc disease) ??? Diabetes mellitus (HCC) ??? Hypertension ??? Intellectual disability 05/03/2017 ??? MN (myocardial infarction) (HCC) ??? RLS (restless legs syndrome) ??? Schizoaffective disorder, depressive type (HCC) 02/19/2017 ??? Stroke (HCC) 2010 left side affected ??? Suicide attempt (HCC) ??? Urinary incontinence ??? Yeast infection recurrent Past Surgical History: Past Surgical History: Procedure Laterality [...] Brown MD; Location: [facility]; Service: Endoscopy Home Medications: Prior to Admission medications Medication Sig Start Date End Date Taking? Authorizing Provider acetaminophen 325 mg Oral Tab Take 650 mg by mouth every 4 hours as needed for Pain. Pt takes 1 to 2 tabs as needed Yes Provider, Historical albuterol (PROVENTIL HFA; VENTOLIN HFA) 90 mcg/actuation Inhl HFA Aerosol Inhaler Inhale 2 Puffs into the lungs 0800, 1200, 1600, 2000. Yes Provider, Historical amLODIPine (NORVASC) 2.5 mg Oral Tablet Take 1 Tab by mouth daily. 07/20/17 Yes Sridevi Calle APRN ARIPiprazole (ABILIFY) 30 mg Oral Tablet Take 1 Tab by mouth daily. 02/23/17 Yes Eric Gavin MD aspirin (ASPIRIN) 81 mg Oral Tablet, Chewable Take 1 Tab by mouth daily. 09/21/17 Yes Donnell Pizano MD atorvastatin (LIPITOR) 20 mg Oral Tablet TAKE ONE TABLET BY MOUTH NIGHTLY 03/24/17 Yes Joanna Pierce MD BASAGLAR KWIKPEN U-100 INSULIN 100 unit/mL (3 mL) SubQ Insulin Pen INJECT 36 UNITS UNDER THE SKIN DAILY AT BEDTIME Patient taking differently: INJECT 28 UNITS UNDER THE SKIN DAILY AT BEDTIME 07/18/18 Yes Sharee Segovia ARNP busPIRone (BUSPAR) 5 mg Oral Tablet Take 5 mg by mouth 2 times daily. Yes Provider, Historical Calcium Carbonate-Vitamin D3 (CALCIUM 600 + D,3,) 600 mg calcium- 200 unit Oral Capsule Take 1 Tab by mouth every 12 hours. 07/13/18 Yes Sharee Segovia ARNP ferrous sulfate 325 mg (65 mg iron) Oral Tablet Take 1 Tab by mouth 2 times daily (with meals). 04/04/15 Yes Campbell Huston MD gabapentin (NEURONTIN) 100 mg Oral Capsule Take 200 mg by mouth 4 times daily. Yes Provider, Historical glipiZIDE (GLUCOTROL) 10 mg Oral Tablet Take 10 mg by mouth 2 times daily. Yes Provider, Historical insulin glargine U-100 (LANTUS) 100 unit/mL SubQ Solution 36 units sq nightly 07/12/18 Yes Sharee Segovia ARNP isosorbide mononitrate (IMDUR) 120 mg Oral Tablet Sustained Release 24 hr Take 1 Tab by mouth daily. 07/20/18 Yes Judi Li APRN lamoTRIgine (LAMICTAL) 100 mg Oral Tablet Take 50 mg by mouth 2 times daily. Takes 100 mg at night Yes Provider, Historical lisinopril (PRINIVIL;ZESTRIL) 20 mg Oral Tablet Take 20 mg by mouth every morning. Yes Provider, Historical loperamide (IMODIUM) 2 mg Oral Capsule Take 2 mg by mouth 3 times daily as needed. Yes Provider, Historical Melatonin 3 mg Oral Tablet Take 5 mg by mouth nightly. Yes Provider, Historical metFORMIN XR (GLUCOPHAGE-XR) 500 mg Oral Tablet Sustained Release 24 hr Take 500 mg by mouth daily (with breakfast). Yes Provider, Historical omega-3 acid ethyl esters (LOVAZA) 1 gram Oral Capsule Take 1 g by mouth 2 times daily. Yes Provider, Historical oxybutynin (DITROPAN-XL) 10 mg Oral Tablet Extended Rel 24 hr Take 1 Tab by mouth daily. 06/14/18 YesSharee Segovia ARNP QUEtiapine (SEROQUEL) 50 mg Oral Tablet Take 50 mg by mouth nightly. Yes Provider, Historical risperiDONE (RISPERDAL) 0.5 mg Oral Tablet Take 0.5 mg by mouth nightly. Yes Provider, Historical Saccharomyces boulardii (FLORASTOR) 250 mg Oral Capsule Take 250 mg by mouth 2 times daily. Yes Provider, Historical sertraline (ZOLOFT) 100 mg Oral Tablet Take 200 mg by mouth daily. Reported on 08/12/2016 Yes Provider, Historical traZODone (DESYREL) 50 mg Oral Tablet Take 3 Tabs by mouth nightly. 07/12/18 Yes Sharee Segovia ARNP fUROsemide (LASIX) 20 mg Oral Tablet Take 20 mg by mouth daily. Provider, Historical miconazole (MICOTIN) 2 % Top Cream Apply topically 2 times daily. Please dispense largest availabletube Patient not taking: Reported on 08/12/2018 06/14/18 Sharee Segovia ARNP nitroGLYCERIN (NITROSTAT) 0.4 mg SL Tablet, Sublingual Place 1 Tab under the tongue every 5 minutesas needed for Chest pain. 11/19/16 Sharee Segovia ARNP pantoprazole (PROTONIX) 40 mg Oral Tablet, Delayed Release (E.C.) Take 1 Tab by mouth daily. Patient not taking: Reported on 08/12/2018 09/21/17 Ernie Pizano MD RANEXA 1,000 mg Oral Tablet Sustained Release 12 hr TAKE ONE TABLET BY MOUTH EVERY 12 HOURS 10/06/17 Joanna Pierce MD sucralfate (CARAFATE) 100 mg/mL Oral Suspension Take 1 g by mouth 4 times daily (before meals and nightly). Provider, Historical Allergies: Allergies Allergen Reactions ??? Compazine [Prochlorperazine Edisylate] ??? Milfay ??? Pentazocine Hcl ??? Prochlorperazine Maleate ??? Talwin [Pentazocine Lactate] Social History: Social History Tobacco Use ??? Smoking status: Never Smoker ??? Smokeless tobacco: Never Used Substance Use Topics ??? Alcohol use: No Comment: wednesday mass ??? Drug use: No Family History: Family History Problem Relation Age of Onset ??? Cancer Mother larnyx cancer ??? Colon Cancer Mother ??? Heart Disease Sister ??? Heart Disease Brother ??? No Known Problems Son ??? Seizures Daughter Review of Systems: The listed systems were reviewed and reveal the following in addition to any already discussed in the HPI: CONSTITUTIONAL: Denies fever, chills EYES: Denies visual disturbance, eye pain ENT: Denies hearing loss, ear pain CARDIOVASCULAR: Denies chest pain, palpitations RESPIRATORY: Denies cough, shortness of breath ENDOCRINE: Denies polydipsia, polyuria HEME: Denies easy bleeding, easy bruising GI: Denies abdominal pain, nausea, emesis, diarrhea, constipation : +urinary frequency (see HPI) NEURO: Denies headache, focal weakness, numbness MUSCULOSKELETAL: Denies myalgias, muscle weakness SKIN: Denies rash, skin discoloration PSYCH: Denies anxiety, depression Physical Exam: General appearance: No acute distress. Head: Normocephalic, atraumatic. Eyes: Conjunctivae, corneas, sclera clear. Pupils equal, round, reactive to light. External ocular muscles intact. Ears: External ears normal Nose: Nares normal. Septum midline. Mucosa normal. Throat: Moist mucous membranes. Neck: Supple. No jugular venous distention. Back: Normal curvature. Lungs: Clear to auscultation bilaterally. No wheezes, rales, or rhonchi. Normal effort. Heart: Regular rate and rhythm. No murmur, rub, or gallop. Abdomen: Soft. No tenderness to palpation in all four quadrants and suprapubic region. No distention. Normal bowel sounds. No masses or organomegaly. Rectal: Deferred Genitourinary: Deferred Extremities: 1+ edema BLE Pulses: Distal pulses are intact. Skin: Warm, dry. No rash noted. Neurologic: Alert. Oriented to person, place, year. Labs: Reviewed Radiology: Reviewed EKG: Reviewed Assessment and Plan: Active Hospital Problems Diagnosis ??? *Hypovolemic shock ([facility]) ??? Severe obesity (BMI 35.0-39.9) with comorbidity ([facility]) ??? Schizoaffective disorder, depressive type ([facility]) ??? Diabetes mellitus type 2 in obese ([facility]) ??? Chronic diastolic heart failure ([facility]) ??? ASHD (arteriosclerotic heart disease) ??? JACK (acute kidney injury) ([facility]) ??? Essential hypertension Hypovolemic shock. Hypotension at admission. Improving with fluid resuscitation. - IVF - Monitor BP JACK on CKD. Stage 3 CKD - Nephrology consult - IVF - Monitor renal function UTI. UA reviewed. - Rocephin - Ur Cx Falls. Suspect due to hypotension vs hypoglycemia - PT eval Diabetes - Lantus (reduced dose) - Novolog Chronic diastolic heart failure - Hold Lasix - Caution with IVF Schizoaffective disorder - Abilify - Seroquel - Lamictal - Sertraline CAD - ASA - Plavix - Atorvastatin HTN - Hold home antiHTN meds Diabetic neuropathy - Gabapentin OAB - Oxybutynin GERD - Protonix I have reviewed and verified the Advance Care Plans and Healthcare Surrogate with patient. Son is HCS. PPX: SCD FEN: 60 GM CONSISTENT CARB DIET Dispo: Admit to ICU Mayo Batres MD documented in this encounter Consult Notes * Slim Lowe MD - 08/12/2018 5:12 PM EDTAssociated Order(s): IP CONSULT TO NEPHROLOGY Images from the original note were not included. [facility] Inpatient Nephrology Consult Note Reason for Consult: Acute Kidney Injury . History of Present Ilness: 68 y.o.obese white female resident at an assisted living facility in [place] with history of schizophrenia and diabetes was admitted after being sent to the ED here for evaluation after a fall &documented hypo. No LOC had fallen at the home. We have been asked to evaluate her azotemia similarto what we had done a couple of years ago when she had presented with weakness, hypotension & JACK. In the ED today she had a BP of 76/37, pulse 50, temperature 97.7 ??F (36.5 ??C), she had a WCC of 6.2, Hb of 11.0 & random glucose of 93. Outpt MAR reviewed. Past Medical History: Diagnosis Date ??? Atrial flutter (HCC) EPS, AFL Ablation on 12/31/[address] Tee ??? CHF (congestive heart failure) (HCC) ??? COPD (chronic obstructive pulmonary disease) (HCC) ??? DDD (degenerative disc disease) ??? Diabetes mellitus (HCC) ??? Hypertension ??? Intellectual disability 05/03/2017 ??? MN (myocardial infarction) (HCC) ??? RLS (restless legs syndrome) ??? Schizoaffective disorder, depressive type ([facility]) 02/19/2017 ??? Stroke (HCC) 2010 left side [...] Brown MD; Location: [facility]; Service: Endoscopy Allergies: Compazine [prochlorperazine edisylate]; Milfay; Pentazocine hcl; Prochlorperazine maleate; and Talwin [pentazocine lactate] Current Medications: Scheduled Meds: ??? cefTRIAXone (ROCEPHIN) IV (Orderable) 2 g Intravenous Daily ??? insulin aspart U-100 1-10 Units Subcutaneous QID WM ??? pantoprazole (PROTONIX) 40 mg Intravenous Daily Or ??? pantoprazole 40 mg Oral Daily Continuous Infusions: ??? sodium chloride 0.9 % ??? sodium chloride 0.9 % 125 mL/hr at 08/12/18 1558 Social History Occupational History ??? Occupation: retired Tobacco Use ??? Smoking status: Never Smoker ??? Smokeless tobacco: Never Used Substance and Sexual Activity ??? Alcohol use: No Comment: wednesday ??? Drug use: No ??? Sexual activity: Never Family History Problem Relation Age of Onset ??? Cancer Mother larnyx cancer ??? Colon Cancer Mother ??? Heart Disease Sister ??? Heart Disease Brother ??? No Known Problems Son ??? Seizures Daughter Review of Systems: ?? Constitutional: positive for failure to thrive, fatigue and malaise and negative for fevers ?? Eyes: negative ?? HENT: negative ?? Respiratory: positive for cough and negative for wheezing ?? Cardiovascular: negative for oxygen requirement and chest pain ?? Gastrointestinal: negative for diarrhea, nausea and vomiting ?? Genitourinary: negative for hematuria ?? Musculoskeletal: negative ?? Integumentary: negative ?? Hematology / Lymphatics: negative for bruises and bleeding problems ?? Endocrine: positive for blood sugar changes and obesity and negative for unexpected weight changes ?? Allergy / Immunology: negative ?? Neuro / Psych: positive for weakness and negative for change in personality and seizures Physical exam: Constitutional Faby is alert, appears stated age, cooperative, flat affect, well developed , well nourished, in mild distress, obese and pale Vitals: 08/12/18 1700 BP: Pulse: 53 Resp: 16 Temp: SpO2: 97% Temp (24hrs), Av.6 ??F (36.4 ??C), Min:97.4 ??F (36.3 ??C), Max:97.7 ??F (36.5 ??C) & BP Min: 76/37 Max: 117/54 Pulse Av Min: 44 Max: 103 24HR INTAKE/OUTPUT: Intake/Output Summary (Last 24 hours) at 08/12/2018 1712 Last data filed at 08/12/2018 1521 Gross per 24 hour Intake 4461.53 ml Output 350 ml Net 4111.53 ml Mmzi-Yoet-TCA Trachea midline Neck supple, midline trachea, no tenderness, no mass, no thyromegaly Respiratory clear to auscultation bilaterally, normal airflow, normal effort, symmetrical chest expansion and diminished breath sounds bilaterally Cardiovascular S1 and S2 normal, no S3 or S4 Abdomen normal findings: bowel sounds normal, no organomegaly, soft, non-tender and symmetric and abnormal findings: distended and obese Lymphatic no cervical adenopathy Musculoskeletal-NeuroPsych awake, alert, no focal neurological deficits and affect appropriate Extremities 1+ bilateral pedal edema Skin no rashes or suspicious lesions Database CBC: Recent Labs 08/12/18 0747 WBC 6.2 HGB 11.0* HCT 32.8* MCV 90.6 MCHC 33.6 RDW 14.0 PLT 130* RENAL FUNCTION PANEL: Recent Labs 08/12/18 0747 08/12/18 1350 NA 140 141 K 3.9 4.0 CL 101 106 CO2 26 22 BUN 47* 46* CREATININE 3.38* 2.96* CALCIUM 9.1 8.3* Liver panel: Recent Labs 08/12/18 1350 PROT 6.0* ALT 8 AST 13 ALKPHOS 121 LABBILI 0.2 ACID - BASE: Recent Labs 08/12/18 0747 08/12/18 0902 08/12/18 1350 ANIONGAP 13 -- 13 LACTA 1.0 -- -- KETONESU -- Negative -- UA Lab Results Component Value Date SPECGRAV 1.015 08/12/2018 UAPROTEIN 30 (A) 08/12/2018 BLOODU Trace-Intact (A) 08/12/2018 NITRITE Positive (A) 08/12/2018 LEUKOCYTESUR Large (A) 08/12/2018 WBCUA 50 (H) 08/12/2018 RBCUA 1 08/12/2018 RADIOLOGY Xr Chest Pa And Lateral Result Date: 08/12/2018 PA AND LATERAL CHEST X-RAY, 08/12/2018 8:50 AM CLINICAL HISTORY: -Sepsis -Sepsis - FALL -HYPOGLYCEMIA COMPARISON: July 2018 PROCEDURE COMMENTS: Frontal and lateral views of the chest. FINDINGS: Cardiovascular structures are stable. No pneumonia or effusion. No pneumothorax. No acute finding. - - Xr Hip Right Ap Lateral W Ap Pelvis Result Date: 08/12/2018 XR HIP RIGHT AP LATERAL W AP PELVIS, 08/12/2018 8:50 AM CLINICAL HISTORY: -FALL - HYPOGLYCEMIA COMPARISON: 2016 PROCEDURE COMMENTS: AP view of the pelvis with AP and frog-leg views of the hip. FINDINGS:Bony structure of the pelvis and hips intact. No fracture or dislocation. Joint spaces are maintained. No acute abnormality of the hip or pelvis. - - Ek Ekg 12 Lead Result Date: 08/12/2018 NOTICE: Preliminary tracing available for review; Final Interpretation by physician to follow. 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 No leukocytosis & no fever. Bradycardic with multiple outpt meds that can cause bradycardia with low BP. No adrenal function evaluation in the past. No lactic acidosis. Started on IVFs. Plan: continue IVFs, Hold Gabapentin Acute on Chronic Kidney Disease Stage 3 Assessment: baseline S.cr appears to have had been ~ 1.3. Last random urine microalbumin :creatinine ratio was 23 in 05/2018 which seems to R/O significant diabetic nephropathy. No persistent hematuria. Pyuria now suggests a poor sample or UTI. Started on IVFs. Plan: follow labs. Chronic diastolic heart failure (HCC) Assessment: 2D echo in 04/2017 showed LVEF 60-65% Abnormal tissue doppler signal c/w impaired diastolic function. Probably needs more pre load. Plan: Continue current management unchanged. Diabetes mellitus type 2 in obese (HCC) Assessment: fairly well controlled given HbA1c of 6.6% on Metformin, Glucotrol & insulin. Plan: defer to primary team. Schizoaffective disorder, depressive type (HCC) Assessment: meds seen. Plan: defer to primary team. Severe obesity (BMI 35.0-39.9) with comorbidity (HCC) Assessment: longterm challenge Plan: Nothing new. Falls, initial encounter Assessment: walks with walker she says. Plan: will need PT/OT Essential hypertension Assessment: meds held Plan: gradually re introduce Thank you very much for asking us to participate in your patient's care; Do call me if you have anyquestions regarding the plan of care as outlined. Slim Lowe MD Critical care time 35 mins documented in this encounter ED Notes * Eliza Contreras RN - 08/12/2018 12:00 PM EDT Very difficult to get an accurate pulse ox, pt is wearing a metallic nail lux[place]bourg[place], refuses to let usremove it. Using pediatric pulse ox on finger with some accuracy and coordinating wave form. * Eliza Contreras RN - 08/12/2018 11:10 AM EDT Pt updated on admission, states she does not want to be admitted because she was told she would be evicted from [employer], she is also concerned about her belongings and mail. * Eliza Contreras RN - 08/12/2018 10:11 AM EDT Meal tray provided and set up for pt. * Eliza Contreras RN - 08/12/2018 9:07 AM EDT Assisted back to bed via WC, pt states she bumped her head in bathroom on hook. No obvious injury noted, will notify MD. * Eliza Contreras RN - 08/12/2018 8:55 AM EDT Patient ambulated to restroom via WC. * Eliza Contreras RN - 08/12/2018 8:27 AM EDT Patient Transported to ED X-ray via stretcher pre radiotelegraph operator. * Eliza Contreras RN - 08/12/2018 8:26 AM EDT Pt refused cath urine collection. MD aware. * Eliza Contreras RN - 08/12/2018 7:30 AM EDT MD at bedside. * Raul Castillo MD - 08/12/2018 7:17 AM EDT Chief Complaint Patient presents with ??? Fall Pt fell last night after dinner, states she was shaking all over , causing her to fall, began withright sided hip pain. 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 ??? Hypoglycemia Medication recently adjusted inital BG was 54, pt was given a PB sandwich and Coke, BG 61, then BG 57, treated with oral glucose, last BG 71 per Engine Tester. The patient is a 68-year-old female with history of schizophrenia and diabetes who presents by squad from a personal retirement for evaluation. The patient states that she was shaking so badly last night that she fell. She states that she was using her walker at the time but fell injuring her right hip. She doesn't think that she's had a fever. She denies having a cough or dysuria. Her blood pressure is low here this morning, but she doesn't know if she normally has a low blood pressure or not. Her blood sugar was found to be 54 this morning. She was given oral glucose and the blood sugar was 71 when checked again by the paramedics. Patient History Allergies Allergen Reactions ??? Compazine [Prochlorperazine Edisylate] ??? Milfay ??? Pentazocine Hcl ??? Prochlorperazine Maleate ??? [...] 1200, 1600, 1999. Provider, Historical amLODIPine (NORVASC) 2.5 mg Oral Tablet Take 1 Tab by mouth daily. 07/20/17 Sridevi Calle APRN ARIPiprazole (ABILIFY) 30 mg Oral Tablet Take 1 Tab by mouth daily. 02/23/17 Eric Gavin MD aspirin (ASPIRIN) 81 mg Oral Tablet, Chewable Take 1 Tab by mouth daily. 09/21/17 Ernie Pizano MD atorvastatin (LIPITOR) 20 mg Oral Tablet TAKE ONE TABLET BY MOUTH NIGHTLY 03/24/17 Joanna Pierce MD BASAGLAR KWIKPEN U-100 INSULIN 100 unit/mL (3 mL) SubQ Insulin Pen INJECT 36 UNITS UNDER THE SKIN DAILY AT BEDTIME Patient taking differently: INJECT 28 UNITS UNDER THE SKIN DAILY AT BEDTIME 07/18/18 Sharee Segovia ARNP busPIRone (BUSPAR) 5 mg Oral Tablet Take 5 mg by mouth 2 times daily. Provider, Historical Calcium Carbonate-Vitamin D3 (CALCIUM 600 + D,3,) 600 mg calcium- 200 unit Oral Capsule Take 1 Tab by mouth every 12 hours. 07/13/18 Sharee Segovia ARNP ferrous sulfate 325 mg (65 mg iron) Oral Tablet Take 1 Tab by mouth 2 times daily (with meals). 04/04/15 Campbell Huston MD fUROsemide (LASIX) 20 mg Oral Tablet Take 20 mg by mouth daily. Provider, Historical gabapentin (NEURONTIN) 100 mg Oral Capsule Take 200 mg by mouth 4 times daily. Provider, Historical glipiZIDE (GLUCOTROL) 10 mg Oral Tablet Take 10 mg by mouth 2 times daily. Provider, Historical insulin glargine U-100 (LANTUS) 100 unit/mL SubQ Solution 36 units sq nightly 07/12/18 Sharee Segovia ARNP isosorbide mononitrate (IMDUR) 120 mg Oral Tablet Sustained Release 24 hr Take 1 Tab by mouth daily. 07/20/18 Judi Li APRN lamoTRIgine (LAMICTAL) 100 mg Oral Tablet Take 50 mg by mouth 2 times daily. Takes 100 mg at night Provider, Historical lisinopril (PRINIVIL;ZESTRIL) 20 mg Oral Tablet Take 20 mg by mouth every morning. Provider, Historical loperamide (IMODIUM) 2 mg Oral Capsule Take 2 mg by mouth 3 times daily as needed. Provider, Historical Melatonin 3 mg Oral Tablet Take 5 mg by mouth nightly. Provider, Historical metFORMIN XR (GLUCOPHAGE-XR) 500 mg Oral Tablet Sustained Release 24 hr Take 500 mg by mouth daily (with breakfast). Provider, Historical miconazole (MICOTIN) 2 % Top Cream Apply topically 2 times daily. Please dispense largest availabletube 06/14/18 Sharee Segovia ARNP nitroGLYCERIN (NITROSTAT) 0.4 mg SL Tablet, Sublingual Place 1 Tab under the tongue every 5 minutesas needed for Chest pain. 11/19/16 Sharee Segovia ARNP omega-3 acid ethyl esters (LOVAZA) 1 gram Oral Capsule Take 1 g by mouth 2 times daily. Provider, Historical oxybutynin (DITROPAN-XL) 10 mg Oral Tablet Extended Rel 24 hr Take 1 Tab by mouth daily. 06/14/18 Sharee Segovia ARNP pantoprazole (PROTONIX) 40 mg Oral Tablet, Delayed Release (E.C.) Take 1 Tab by mouth daily. 09/21/17 Ernie Pizano MD QUEtiapine (SEROQUEL) 50 mg Oral Tablet Take 50 mg by mouth nightly. Provider, Historical RANEXA 1,000 mg Oral Tablet Sustained Release 12 hr TAKE ONE TABLET BY MOUTH EVERY 12 HOURS 10/06/17 Joanna Pierce MD risperiDONE (RISPERDAL) 0.5 mg Oral Tablet Take 0.5 mg by mouth nightly. Provider, Historical Saccharomyces boulardii (FLORASTOR) 250 mg Oral Capsule [...] Dr. Tee ??? CHF (congestive heart failure) ([facility]) ??? COPD (chronic obstructive pulmonary disease) ([facility]) ??? DDD (degenerative disc disease) ??? Diabetes mellitus ([facility]) ??? Hypertension ??? Intellectual disability 05/03/2017 ??? MN (myocardial infarction) ([facility]) ??? RLS (restless legs syndrome) ??? Schizoaffective disorder, depressive type ([facility]) 02/19/2017 ??? Stroke ([facility]) 2010 left side affected ??? Suicide attempt ([facility]) ??? Urinary incontinence ??? Yeast infection recurrent [...] Endoscopy Review of Systems Review of Systems All other systems reviewed and are negative. Physical Exam Blood pressure (!) 76/37, pulse 50, temperature 97.7 ??F (36.5 ??C), temperature source Oral, resp.rate 16, height 5' 5 (1.651 m), weight 232 lb (105.2 kg), SpO2 99 %, not currently . Physical Exam Constitutional: She appears well-developed and well-nourished. No distress. Obese white female who is awake and alert. She is not shaking. HENT: Head: Normocephalic. Mouth/Throat: Oropharynx is clear and moist. Eyes: Pupils are equal, round, and reactive to light. Conjunctivae are normal. Neck: Normal range of motion. Neck supple. Cardiovascular: Normal rate and regular rhythm. Exam reveals no gallop and no friction rub. No murmur heard. Pulmonary/Chest: Effort normal and breath sounds normal. She has no rales. Abdominal: Soft. She exhibits no distension. There is no tenderness. Musculoskeletal: She exhibits no edema. The patient has a well demarcated area of erythema on the right lower leg laterally which may be from recent pressure to the skin. She can flex and extend both legs at the hip and knees. Neurological: She is alert. No cranial nerve deficit. Skin: Skin is warm and dry. No rash noted. Psychiatric: She has a normal mood and affect. Nursing note and vitals reviewed. Procedures Radiology/EKG/Labs: G shows a sinus bradycardia with a rate of 46. There is low voltage which is not new. She has inferior and anterior Q waves which are old as well by my reading.7:44 AM Results for orders placed or performed during the hospital encounter of 08/12/18 BLOOD CULTURE (NO STAIN) Result Value Ref Range Culture Result Blood culture received for processing in the laboratory. Positives will be reported immediately. BLOOD CULTURE (NO STAIN) Result Value Ref Range Culture Result Blood culture received for processing in the laboratory. Positives will be reported immediately. XR CHEST PA AND LATERAL Narrative PA AND LATERAL CHEST X-RAY, 08/12/2018 8:50 AM CLINICAL HISTORY: -Sepsis -Sepsis -FALL -HYPOGLYCEMIA COMPARISON: July 2018 PROCEDURE COMMENTS: Frontal and lateral views of the chest. FINDINGS: Cardiovascular structures are stable. No pneumonia or effusion. No pneumothorax. Impression No acute finding. - - XR HIP RIGHT AP LATERAL W AP PELVIS Narrative XR HIP RIGHT AP LATERAL W AP PELVIS, 08/12/2018 8:50 AM CLINICAL HISTORY: -FALL -HYPOGLYCEMIA COMPARISON: 2016 PROCEDURE COMMENTS: AP view of the pelvis with AP and frog-leg views of the hip. FINDINGS: Bony structure of the pelvis and hips intact. No fracture or dislocation. Joint spaces are maintained. Impression No acute abnormality of the hip or pelvis. - - CBC WITH DIFF Result Value Ref Range WBC 6.2 4.0 - 11.0 x10(3)/mcL RBC 3.62 (L) 3.80 - 5.10 x10(6)/mcL Hgb 11.0 (L) 12.0 - 15.6 g/dL Hct 32.8 (L) 35.7 - 45.9 % MCV 90.6 82.5 - 99.8 fL MCH 30.4 27.0 - 34.3 pg MCHC 33.6 32.1 - 35.3 g/dL RDW 14.0 11.5 - 15.0 % Platelet 130 (L) 144 - 423 x10(3)/mcL MPV 9.9 6.8 - 10.8 fL Neut Percent 68.9 % Lymph Percent 19.2 % [place] Percent 9.6 % Eos Percent 1.9 % Baso Percent 0.4 % Neut # 4.3 1.8 - 7.7 x10(3)/mcL Lymph # 1.2 0.6 - 4.8 x10(3)/mcL [place] # 0.6 0.0 - 1.3 x10(3)/mcL Eos# 0.1 0.0 - 0.5 x10(3)/mcL Baso # 0.0 0.0 - 0.2 x10(3)/mcL COMPREHENSIVE METABOLIC PANEL Result Value Ref Range Sodium 140 136 - 145 mmol/L Potassium 3.9 3.5 - 5.0 mmol/L Chloride 101 98 - 107 mmol/L Total CO2 26 22 - 29 mmol/L Anion Gap 13 7 - 16 mmol/L Calcium 9.1 8.8 - 10.4 mg/dL Glucose Lvl 93 82 - 100 mg/dL BUN 47 (H) 8 - 23 mg/dL Creatinine 3.38 (H) 0.51 - 1.30 mg/dL Albumin 3.5 3.2 - 4.6 gm/dL Total Protein 6.8 6.4 - 8.3 gm/dL Bili Total 0.4 0.1 - 1.3 mg/dL ALT 10 <=41 IU/L AST 15 <=40 IU/L Alk Phos 121 36 - 123 IU/L GFR Afr Am 15 (L) >=60 mL/min/1.73 m2 GFR Non Afr Am 13 (L) >=60 mL/min/1.73 m2 LACTIC ACID Result Value Ref Range Lactic Acid 1.0 0.5 - 1.9 mmol/L PROCALCITONIN Result Value Ref Range Procalcitonin 0.49 <=0.49 ng/mL Narrative Procalcitonin <0.50 ng/mL: Procalcitonin levels below 0.50 ng/mL on the first day of ICU admission represent a low risk for progression to severe sepsis and/or septic shock Procalcitonin >=0.50 ng/mL and <=2.00 ng/mL: If the procalcitonin measurement is performed shortly after the systemic infection process has started (usually less than 6 hours), this value may still be low. As various non-infectious conditions are known to induce procalcitonin as well, procalcitonin levels between 0.50 ng/mL and 2.00 ng/mL should be reviewed carefully to take into account the specific clinical background and condition(s) of the patient. Procalcitonin >2.00 ng/mL: Procalcitonin levels above 2.00 ng/mL on the first day of ICU admission represent a high risk for progression to severe sepsis and/or septic shock. BLOOD GAS, VENOUS Result Value Ref Range pH Venous 7.33 7.32 - 7.42 pH pCO2 Venous 56 (H) 41 - 51 mmHg pO2 Venous <42 (H) 25 - 40 mmHg Base Excess Martín 2.5 mmol/L Hco3 Venous 29.5 (H) 24.0 - 28.0 mmol/L CO2 Total Martín 28 25 - 29 mmol/L O2 Sat. Venous 37.5 (L) 40.0 - 70.0 % TROPONIN-T HIGH SENSITIVITY Result Value Ref Range wl-mPsskutej-Z 17 (H) <14 ng/L Narrative Ingestion of charles doses of biotin (>5 mg/day) taken within 8 hours of drawing blood sample can interfere with this immunoassay test. TROPONIN-T HIGH SENSITIVITY Result Value Ref Range br-gSoqtcgqi-F 16 (H) <14 ng/L Narrative Ingestion of charles doses of biotin (>5 mg/day) taken within 8 hours of drawing blood sample can interfere with this immunoassay test. NT PROBNP Result Value Ref Range NT Pro-BNP 433 (H) <=319 pg/mL Narrative An NT pro-BNP level less than 300 pg/mL in any patient, regardless of age, effectively rules out acute CHF with a 99% negative predictive value. URINALYSIS Result Value Ref Range UA Color Yellow UA Appear Slightly Cloudy (A) Clear UA Glucose Negative Negative mg/dL UA Ketones Negative Negative mg/dL UA Blood Trace-Intact (A) Negative UA pH 6.0 5.0 - 8.0 pH UA Protein 30 (A) Negative mg/dL UA Urobilinogen 0.2 <=1 mg/dL UA Bili Negative Negative UA Nitrite Positive (A) Negative UA Leuk Est Large (A) Negative UA Spec Grav 1.015 1.001 - 1.035 no units UA WBC 50 (H) 0 - 4 /HPF UA RBC 1 0 - 3 /HPF UA Squam Epi 1+ /LPF UA Bacteria 2+ (A) Negative /HPF TROPONIN-T HIGH SENSITIVITY Result Value Ref Range zs-vFvnjwyqw-O 15 (H) <14 ng/L Narrative Ingestion of charles doses of biotin (>5 mg/day) taken within 8 hours of drawing blood sample can interfere with this immunoassay test. GLUCOSE METER POC Result Value Ref Range Glucose Meter POC 71 70 - 100 mg/dL Sample Type Capillary Patient Status Non-Critical Patient ECG AND WAVEFORMS - TELEMETRY Result Value Ref Range ECG INTERPRET Sinus Bradycardia RN APPROVED Yes Narrative See Clinical Report link for waveform capture GLUCOSE METER POC Result Value Ref Range Glucose Meter POC 164 (H) 70 - 100 mg/dL Sample Type Capillary Patient Status Non-Critical Patient EK EKG [address] 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 Her blood sugar was slightly low this morning as well. Her initial blood pressures were in the eighties and seventies. Therefore she was evaluated for sepsis and given normal saline IV fluid boluses based on sepsis protocol. She requested something for pain and was given Tylenol initially. The patient's blood pressure eventually improved with IV fluid boluses, but she was admitted to theICU for close monitoring. She was also given Rocephin for urinary tract infection. Medications cefTRIAXone in dextrose (ROCEPHIN) 2 gram/50 mL IVPB 2 g (0 g Intravenous Stopped 08/12/18 1016) 0.9 % NaCl IV bolus 1,000 mL (0 mL Intravenous Stopped 08/12/18 1050) Followed by 0.9 % NaCl IV bolus 1,000 mL (0 mL Intravenous Stopped 08/12/18 1202) acetaminophen (TYLENOL) tablet 650 mg (650 mg Oral Given 08/12/18 0820) sodium chloride 0.9 % 1,000 mL IV bolus ( Intravenous Stopped 08/12/18 1221) I spoke with Dr. Batres for the admission. ED Clinical Impression: 1. Hypotension, unspecified hypotension type 2. Acute kidney injury (HCC) 3. Contusion of right hip, initial encounter 4. Sepsis, due to unspecified organism (HCC) Critical Care time Critical care was administered to the patient for 75 minutes. This time excludes procedure time. Condition at Discharge/Transfer from Department: Stable This chart was completed using voice recognition technology and may contain unintended errors Raul Castillo MD 08/12/18 1625 documented in this encounter Miscellaneous Notes * Plan of Care - Charity Kaye RN - 08/14/2018 2:26 PM EDT Discharged home * Plan of Care - Toshia Wood RN - 08/14/2018 3:23 AM EDT Problem: Safety: Fall Risk Goal: Patient will remain free of falls and injury Outcome: Progressing Note: Side rails up x 2. Call light in reach. Bed alarm in use. Nonskid socks in use. Problem: Pain Management Goal: The patient's stated pain goal will be reached and maintained. Description The patient's stated pain goal will be reached and maintained Outcome: Progressing Note: Patient has had no complaints of pain this shift. Problem: Knowledge Deficit Related to Disease Process/Treatment Description Goal: Patient/family will be knowledgeable of disease process and treatment Outcome: Progressing Problem: Psycho/Social/Spiritual Goal: Patient will identify sources of support and strength Outcome: Progressing Problem: Assess for New Problems - (ALWAYS [...] such as RESTRAINTS [62]. To add an additional problem, go to APPLY TEMPLATE. Impaired oxygenation/respiratory function/dyspna [84] Risk for harm to self or others [74] Volume excess [72] Altered bladder elimination [77] Altered bowel elimination [78] Altered mental status [80] Altered mobility[79] Altered skin integrity [86,87,88,89,90] Prevention: Skin integrity, joe scale <12 [76] Uncontrolled diabetes or A1C>6 or newly diagnosed [75] Infection [93] Isolation [69] Nutrition imbalance Outcome: Progressing * Plan of Care - Dolores Flores RN - 08/12/2018 4:09 PM EDT Admit to ICU. Monitoring BP and glucose. Fluids started. Med list verified with pharmacy (list on front of chart). PT consult R/T fall and hip injury. Pastoral care notified per patient request. * Plan of Care - Donya Chaudhary LSW - 08/12/2018 3:50 PM EDT collision worker to assist with discharge planning * Utilization Review Notes - Patricia Cabrera LPN - 08/12/2018 12:48 PM EDT 08/12 The patient states that she was shaking so badly last night that she fell. She states that she was using her walker at the time but fell injuring her right hip. She doesn't think that she's had afever. She denies having a cough or dysuria. Her blood pressure is low here this morning, but she doesn't know if she normally has a low blood pressure or not. Her blood sugar was found to be 54 thismorning. She was given oral glucose and the blood sugar was 71 when checked again by the paramedics Blood pressure (!) 76/37, pulse 50, temperature 97.7 ??F (36.5 ??C), temperature source Oral, resp.rate 16, WBC 6.2, BUN 47, CREAT 3.38, PCO2 56, PO2 <42, HCO3 29, 5, IVF BOLUS GIVEN X 2, ROCEPHIN 2GM IV QD ORDERED, UA CX, SERIAL TROP, CARDIAC MONITORING, BLD CX, documented in this encounter Plan of Treatment [...] Procedure Name Priority Date/Time Associated Diagnosis Comments SCANNED EKG 08/15/2018 10:09 AM EDT GLUCOSE METER POC Routine 08/14/2018 11:58 AM EDT GLUCOSE METER POC Routine 08/14/2018 7:57 AM EDT RENAL FUNCTION PANEL Timed 08/14/2018 5:59 AM EDT GLUCOSE METER POC Routine 08/13/2018 9:27 PM EDT GLUCOSE METER POC Routine 08/13/2018 6:04 PM EDT GLUCOSE METER POC Routine 08/13/2018 1:38 PM EDT US RENAL AND BLADDER EMMY 08/13/2018 10:50 AM EDT GLUCOSE METER POC Routine 08/13/2018 8:08 AM EDT ECG AND WAVEFORMS - TELEMETRY Routine 08/13/2018 7:17 AM EDT CBC WITH DIFF Timed 08/13/2018 5:50 AM EDT RENAL FUNCTION PANEL Timed 08/13/2018 5:50 AM EDT UREA NITROGEN LEVEL URINE Routine 08/12/2018 10:12 PM EDT CREATININE LEVEL URINE Routine 08/12/2018 10:12 PM EDT GLUCOSE METER POC Routine 08/12/2018 9:03 PM EDT ECG AND WAVEFORMS - TELEMETRY Routine 08/12/2018 7:02 PM EDT GLUCOSE METER POC Routine 08/12/2018 5:09 PM EDT IP CONSULT TO NEPHROLOGY Routine 08/12/2018 3:09 PM EDT Procedure Note - Slim Lowe MD - 08/12/2018 5:12 PM EDTThis note is in progress. Images from the original note were not included. [facility] Reason for Consult: Acute Kidney Injury . History of Present Ilness: 68 y.o.obese white female resident at an assisted living facility [facility] with history of schizophrenia and diabetes was admitted afterbeing sent to the ED here for evaluation after a fall & documented hypo.No LOC had fallen at the home. We have been asked to evaluate her azotemiasimilar to what we had done a couple of years ago when she had presentedwith weakness, hypotension & JACK. In the ED today she had a BP of 76/37,pulse 50, temperature 97.7 ??F (36.5 ??C), she had a WCC of 6.2, Hb of 11.0& random glucose of 93. Outpt MAR reviewed. Past Medical History: Diagnosis Date ? ? Atrial flutter (HCC) EPS, AFL Ablation on 12/31/[address] Tee ? ? CHF (congestive heart failure) (HCC) ? ? COPD (chronic obstructive pulmonary disease) (HCC) ? ? DDD (degenerative disc disease) ? ? Diabetes mellitus (HCC) ? ? Hypertension ? ? Intellectual disability 05/03/2017 ? ? MN (myocardial infarction) (HCC) ? ? RLS (restless legs syndrome) ? ? Schizoaffective disorder, depressive type (HCC) 02/19/2017 ? ? Stroke (HCC) 2010 left side affected ? ? Suicide attempt (HCC) ? ? Urinary incontinence ? ? Yeast infection recurrent Past Surgical History: Procedure Laterality Date ? ? ABLATION OF DYSRHYTHMIC FOCUS 12/31/[address] Dr[address] Tee ? ? ANKLE SURGERY ? ? BREAST SURGERY reduction ? ? JOINT REPLACEMENT left total knee replacement 1999 ? ? KNEE SURGERY Left 12/06/2008 ? ? LUNG SURGERY partial removal ? ? ORTHOPEDIC SURGERY ? ? TONSILLECTOMY ? ? UPPER GASTROINTESTINAL ENDOSCOPY N/A 04/03/2015 ESOPHAGOGASTRODUODENOSCOPY WITH BIOPSY AND BRUSHING; Surgeon: Chrissy Brown MD; Location: [facility]; Service: Endoscopy Allergies: Compazine [prochlorperazine edisylate]; Milfay; Pentazocinehcl; Prochlorperazine maleate; and Talwin [pentazocine lactate] Current Medications: Scheduled Meds: ? ? cefTRIAXone (ROCEPHIN) IV (Orderable) 2 g Intravenous Daily ? ? insulin aspart U-100 1-10 Units Subcutaneous QID WM ? ? pantoprazole (PROTONIX) 40 mg Intravenous Daily Or ? ? pantoprazole 40 mg Oral Daily Continuous Infusions: ? ? sodium chloride 0.9 % ? ? sodium chloride 0.9 % 125 mL/hr at 08/12/18 1558 Social History Occupational History ? ? Occupation: retired Tobacco Use ? ? Smoking status: Never Smoker ? ? Smokeless tobacco: Never Used Substance and Sexual Activity ? ? Alcohol use: No Comment: wednesday mass ? ? Drug use: No ? ? Sexual activity: Never Family History Problem Relation Age of Onset ? ? Cancer Mother larnyx cancer ? ? Colon Cancer Mother ? ? Heart Disease Sister ? ? Heart Disease Brother ? ? No Known Problems Son ? ? Seizures Daughter Review of Systems: ?? Constitutional: positive for failure to thrive, fatigue and malaise andnegative for fevers ?? Eyes: negative ?? HENT: negative ?? Respiratory: positive for cough and negative for wheezing ?? Cardiovascular: negative for oxygen requirement and chest pain ?? Gastrointestinal: negative for diarrhea, nausea and vomiting ?? Genitourinary: negative for hematuria ?? Musculoskeletal: negative ?? Integumentary: negative ?? Hematology / Lymphatics: negative for bruises and bleeding problems ?? Endocrine: positive for blood sugar changes and obesity and negativefor unexpected weight changes ?? Allergy / Immunology: negative ?? Neuro / Psych: positive for weakness and negative for change inpersonality and seizures Physical exam: Constitutional Faby is alert, appears stated age, cooperative, flataffect, well developed , well nourished, in mild distress, obese andpale Vitals: 08/12/18 1700 BP: Pulse: 53 Resp: 16 Temp: SpO2: 97% Temp (24hrs), Av.6 ??F (36.4 ??C), Min:97.4 ??F (36.3 ??C), Max:97.7 ??F(36.5 ??C) & BP Min: 76/37 Max: 117/54 Pulse Av Min: 44 Max: 103 24HR INTAKE/OUTPUT: Intake/Output Summary (Last 24 hours) at 08/12/2018 1712 Last data filed at 08/12/2018 1521 Gross per 24 hour Intake 4461.53 ml Output 350 ml Net 4111.53 ml Bxdm-[id number]-VZM Trachea midline Neck supple, midline trachea, no tenderness, no mass, no thyromegaly Respiratory clear to auscultation bilaterally, normal airflow, normaleffort, symmetrical chest expansion and diminished breath soundsbilaterally Cardiovascular S1 and S2 normal, no S3 or S4 Abdomen normal findings: bowel sounds normal, no organomegaly, soft,non-tender and symmetric and abnormal findings: distended and obese Lymphatic no cervical adenopathy Musculoskeletal-NeuroPsych awake, alert, no focal neurological deficitsand affect appropriate Extremities 1+ bilateral pedal edema Skin no rashes or suspicious lesions Database CBC: Recent Labs 08/12/18 0747 WBC 6.2 HGB 11.0* HCT 32.8* MCV 90.6 MCHC 33.6 RDW 14.0 PLT 130* RENAL FUNCTION PANEL: Recent Labs 08/12/18 0747 08/12/18 1350 NA 140 141 K 3.9 4.0 CL 101 106 CO2 26 22 BUN 47* 46* CREATININE 3.38* 2.96* CALCIUM 9.1 8.3* Liver panel: Recent Labs 08/12/18 1350 PROT 6.0* ALT 8 AST 13 ALKPHOS 121 LABBILI 0.2 ACID - BASE: Recent Labs 08/12/18 0747 08/12/18 0902 08/12/18 1350 ANIONGAP 13 -- 13 LACTA 1.0 -- -- KETONESU -- Negative -- UA Lab Results Component Value Date SPECGRAV 1.015 08/12/2018 UAPROTEIN 30 (A) 08/12/2018 BLOODU Trace-Intact (A) 08/12/2018 NITRITE Positive (A) 08/12/2018 LEUKOCYTESUR Large (A) 08/12/2018 WBCUA 50 (H) 08/12/2018 RBCUA 1 08/12/2018 RADIOLOGY Xr Chest Pa And Lateral Result Date: 08/12/2018 PA AND LATERAL CHEST X-RAY, 08/12/2018 8:50 AM CLINICAL HISTORY: -Sepsis-Sepsis -FALL -HYPOGLYCEMIA COMPARISON: July 2018 PROCEDURE COMMENTS:Frontal and lateral views of the chest. FINDINGS: Cardiovascularstructures are stable. No pneumonia or effusion. No pneumothorax. No acute finding. - - Xr Hip Right Ap Lateral W Ap Pelvis Result Date: 08/12/2018 XR HIP RIGHT AP LATERAL W AP PELVIS, 08/12/2018 8:50 AM CLINICAL HISTORY:-FALL -HYPOGLYCEMIA COMPARISON: 2016 PROCEDURE COMMENTS: AP view of thepelvis with AP and frog-leg views of the hip. FINDINGS: Bony structure ofthe pelvis and hips intact. No fracture or dislocation. Joint spaces aremaintained. No acute abnormality of the hip or pelvis. - - Ek Ekg 12 Lead Result Date: 08/12/2018 NOTICE: Preliminary tracing available for review; Final Interpretation byphysician to follow. 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 No leukocytosis & no fever.Bradycardic with multiple outpt meds that can cause bradycardia with lowBP. No adrenal function evaluation in the past. No lactic acidosis.Started on IVFs. Plan: continue IVFs, Hold Gabapentin Acute on Chronic Kidney Disease Stage 3 Assessment: baseline S.cr appears to have had been ~ 1.3. Last randomurine microalbumin :creatinine ratio was 23 in 05/2018 which seems to R/Osignificant diabetic nephropathy. No persistent hematuria. Pyuria nowsuggests a poor sample or UTI. Started on IVFs. Plan: follow labs. Chronic diastolic heart failure (HCC) Assessment: 2D echo in 04/2017 showed LVEF 60-65% Abnormal tissue dopplersignal c/w impaired diastolic function. Probably needs more pre load. Plan: Continue current management unchanged. Diabetes mellitus type 2 in obese (HCC) Assessment: fairly well controlled given HbA1c of 6.6% on Metformin,Glucotrol & insulin. Plan: defer to primary team. Schizoaffective disorder, depressive type (HCC) Assessment: meds seen. Plan: defer to primary team. Severe obesity (BMI 35.0-39.9) with comorbidity (HCC) Assessment: longterm challenge Plan: Nothing new. Falls, initial encounter Assessment: walks with walker she says. Plan: will need PT/OT Essential hypertension Assessment: meds held Plan: gradually re introduce Thank you very much for asking us to participate in your patient's care;Do call me if you have any questions regarding the plan of care asoutlined. Slim [place] MD Critical care time 35 mins GLUCOSE METER POC Routine 08/12/2018 2:05 PM EDT TROPONIN-T HIGH SENSITIVITY BASELINE W/ REFLEX Timed 08/12/2018 1:50 PM EDT URIC ACID Add-On 08/12/2018 1:50 PM EDT COMPREHENSIVE METABOLIC PANEL Add-On 08/12/2018 1:50 PM EDT ECG AND WAVEFORMS - TELEMETRY Routine 08/12/2018 1:34 PM EDT TROPONIN-T HIGH SENSITIVITY BASELINE W/ REFLEX Timed 08/12/2018 9:52 AM EDT EXTRA SMALL URINE CX STAT 08/12/2018 9:02 AM EDT URINALYSIS STAT 08/12/2018 9:02 AM EDT URINE CULTURE (NO STAIN) STAT 08/12/2018 9:02 AM EDT XR HIP RIGHT AP LATERAL W AP PELVIS EMMY 08/12/2018 8:50 AM EDT XR CHEST PA AND LATERAL STAT 08/12/2018 8:50 AM EDT BLOOD CULTURE (NO STAIN) STAT 08/12/2018 8:23 AM EDT BLOOD CULTURE (NO STAIN) STAT 08/12/2018 8:23 AM EDT TROPONIN-T HIGH SENSITIVITY BASELINE W/ REFLEX STAT 08/12/2018 7:47 AM EDT BLOOD GAS, VENOUS STAT 08/12/2018 7:47 AM EDT PROCALCITONIN STAT 08/12/2018 7:47 AM EDT CBC WITH DIFF STAT 08/12/2018 7:47 AM EDT NT PROBNP STAT 08/12/2018 7:47 AM EDT LACTIC ACID STAT 08/12/2018 7:47 AM EDT COMPREHENSIVE METABOLIC PANEL STAT 08/12/2018 7:47 AM EDT EK EKG 12 LEAD STAT 08/12/2018 7:34 AM EDT GLUCOSE METER POC Routine 08/12/2018 7:23 AM EDT documented in this encounter Results * SCANNED EKG (08/15/2018 10:09 AM EDT) Anatomical Region Laterality Modality Other 08/15/2018 10:0 9 AM EDT Unknown Unknown IMG ECG ORDERABLES Final Result * (ABNORMAL) GLUCOSE METER POC (08/14/2018 11:58 AM EDT) Glucose Meter POC 165(H) 70 - 100 mg/dL 08/14/2018 11:59 AM EDT [facility] Sample Type Capillary 08/14/2018 11:59 AM EDT [facility] Patient Status Non-Critical Patient 08/14/2018 11:59 AM EDT [facility] Blood BLOOD SPECIMEN / Unknown 08/14/2018 11:58 AM EDT 08/14/2018 11:59 AM EDT Mayo Batres MD POINT OF CARE TEST ORDERABLES Final Result Performing Organization Address [facility] [[email or web address]] [place] [address] * (ABNORMAL) GLUCOSE METER POC (08/14/2018 7:57 AM EDT) Glucose Meter POC 106(H) 70 - 100 mg/dL 08/14/2018 7:58 AM EDT [facility] Sample Type Capillary 08/14/2018 7:58 AM EDT [facility] Patient Status Non-Critical Patient 08/14/2018 7:58 AM EDT [facility] Blood BLOOD SPECIMEN / Unknown 08/14/2018 7:57 AM EDT 08/14/2018 7:58 AM EDT Mayo Batres MD POINT OF CARE TEST ORDERABLES Final Result Performing Organization Address City/[facility] [place] [address] * (ABNORMAL) RENAL FUNCTION PANEL (08/14/2018 5:59 AM EDT) Sodium 148(H) 136 - 145 mmol/L 08/14/2018 6:55 AM [facility] Potassium 4.3 3.5 - 5.0 mmol/L 08/14/2018 6:55 AM [facility] Chloride 111(H) 98 - 107 mmol/L 08/14/2018 6:55 AM [facility] Total CO2 27 22 - 29 mmol/L 08/14/2018 6:55 AM [facility] Anion Gap 10 7 - 16 mmol/L 08/14/2018 6:55 AM [facility] Calcium 9.6 8.8 - 10.4 mg/dL 08/14/2018 6:55 AM [facility] Glucose Lvl 117(H) 82 - 100 mg/dL 08/14/2018 6:55 AM [facility] BUN 20 8 - 23 mg/dL 08/14/2018 6:55 AM [facility] Creatinine 1.31(H) 0.51 - 1.30 mg/dL 08/14/2018 6:55 AM [facility] Albumin 3.5 3.2 - 4.6 gm/dL 08/14/2018 6:55 AM [facility] Phosphorus 3.2 2.5 - 4.5 mg/dL 08/14/2018 6:55 AM [facility] GFR Afr Am 49(L) >=60 mL/min/1.7 3 m2 08/14/2018 6:55 AM [facility] GFR Non Afr Am 42(L) >=60 mL/min/1.7 3 m2 08/14/2018 6:55 AM [facility] Comment: This estimated GFR was [...] or muscle mass. Blood Venipuncture / Unknown 08/14/2018 5:59 AM EDT 08/14/2018 6:30 AM EDT Mayo Batres MD CHEMISTRY ORDERABLES Final Res ult [facility] [address] [address] * (ABNORMAL) GLUCOSE METER POC (08/13/2018 9:27 PM EDT) Glucose Meter POC 183(H) 70 - 100 mg/dL 08/13/2018 9:28 PM EDT [facility] Sample Type Capillary 08/13/2018 9:28 PM EDT [facility] Patient Status Non-Critical Patient 08/13/2018 9:28 PM EDT [facility] Blood BLOOD SPECIMEN / Unknown 08/13/2018 9:27 PM EDT 08/13/2018 9:28 PM EDT Mayo Batres MD POINT OF CARE TEST ORDERABLES Final Result Performing Organization Address City/[facility]/ZIP Co de Phone Number [address] [address] * (ABNORMAL) GLUCOSE METER POC (08/13/2018 6:04 PM EDT) Glucose Meter POC 151(H) 70 - 100 mg/dL 08/13/2018 6:06 PM EDT [facility] Sample Type Capillary 08/13/2018 6:06 PM EDT [facility] Patient Status Non-Critical Patient 08/13/2018 6:06 PM EDT [facility] Blood BLOOD SPECIMEN / Unknown 08/13/2018 6:04 PM EDT 08/13/2018 6:06 PM EDT Mayo Batres MD POINT OF CARE TEST ORDERABLES Final Result [facility] [address] [place], [place] [id number] * (ABNORMAL) GLUCOSE METER POC (08/13/2018 1:38 PM EDT) Glucose Meter POC 126(H) 70 - 100 mg/dL 08/13/2018 1:43 PM EDT [facility] Sample Type Capillary 08/13/2018 1:43 PM EDT [facility] Patient Status Non-Critical Patient 08/13/2018 1:43 PM EDT [facility] Blood BLOOD SPECIMEN / Unknown 08/13/2018 1:38 PM EDT 08/13/2018 1:43 PM EDT us Mayo Batres MD POINT OF CARE TEST ORDERABLES Final Result Performing Organization Address City/State/[facility] Co de Phone Number [facility] [address] [place] [address] * US RENAL AND BLADDER (08/13/2018 10:50 AM EDT) Anatomical Region Laterality Modality Abdomen, Pelvis Ultrasound 08/13/2018 10:5 0 AM EDT Impressions 08/13/2018 10:56 AM EDT No hydronephrosis. - - Narrative 08/13/2018 10:56 AM EDT US KIDNEYS AND BLADDER, ??08/13/2018 10:50 AM ?? CLINICAL HISTORY: ??-JACK COMPARISON: ??None. PROCEDURE COMMENTS: Routine sonographic evaluation of the kidneys and bladder with herbicide service sales representative images and anime designer notes sent to PACS for radiologist review. FINDINGS: ?? RIGHT: 11.1 cm. ??No hydronephrosis, solid-appearing mass, or shadowing stone. LEFT: ??10.5 cm. ??Lobular contour midpole left kidney is likely a dromedary hump. No hydronephrosis. PELVIS: ??The bladder is sonographically normal. Bilateral ureteral jets seen. Procedure Note Raffy Kidd MD - 08/13/2018 US KIDNEYS AND BLADDER, 08/13/2018 10:50 AM CLINICAL HISTORY: -JACK COMPARISON: None. PROCEDURE COMMENTS: Routine sonographic evaluation of the kidneys andbladder with herbicide service sales representative images and anime designer notes sent to PACS forradiologist review. FINDINGS: RIGHT: 11.1 cm. No hydronephrosis, solid-appearing mass, or shadowingstone. LEFT: 10.5 cm. Lobular contour midpole left kidney is likely a dromedaryhump. No hydronephrosis. PELVIS: The bladder is sonographically normal. Bilateral ureteral jetsseen. IMPRESSION: No hydronephrosis. - - Mayo Batres MD IM US ORDERABLES Final Result * (ABNORMAL) GLUCOSE METER POC (08/13/2018 8:08 AM EDT) [facility] Glucose Meter POC 123(H) 70 - 100 mg/dL 08/13/2018 8:16 AM EDT [facility] Sample Type Capillary 08/13/2018 8:16 AM EDT [facility] Patient Status Non-Critical Patient 08/13/2018 8:16 AM EDT [facility] Blood BLOOD SPECIMEN / Unknown 08/13/2018 8:08 AM EDT 08/13/2018 8:16 AM EDT Mayo Batres MD POINT OF CARE TEST ORDERABLES Final Result Performing Organization Address [facility]/ZIP Co de Phone Number [facility] [address] [place] [address] * ECG AND WAVEFORMS - TELEMETRY (08/13/2018 7:17 AM EDT) [facility] ECG INTERPRET NSR [facility] [employer] APPROVED Yes [facility] 08/13/2018 7:17 AM EDT Narrative [facility] - 08/13/2018 7:21 AM EDT ??See Clinical Report link for waveform capture Unknown Provider POINT OF CARE CARDIOLOGY Final Result Performing Organization Address [facility]/ZIP Co de Phone Number [facility] [address] [place] [address] * (ABNORMAL) RENAL FUNCTION PANEL (08/13/2018 5:50 AM EDT) Sodium 144 136 - 145 mmol/L 08/13/2018 6:20 AM [facility] Potassium 4.0 3.5 - 5.0 mmol/L 08/13/2018 6:20 AM [facility] Chloride 112(H) 98 - 107 mmol/L 08/13/2018 6:20 AM [facility] Total CO2 23 22 - 29 mmol/L 08/13/2018 6:20 AM [facility] Anion Gap 9 7 - 16 mmol/L 08/13/2018 6:20 AM [facility] Calcium 8.7(L) 8.8 - 10.4 mg/dL 08/13/2018 6:20 AM [facility] Glucose Lvl 163(H) 82 - 100 mg/dL 08/13/2018 6:20 AM [facility] BUN 35(H) 8 - 23 mg/dL 08/13/2018 6:20 AM [facility] Creatinine 1.94(H) 0.51 - 1.30 mg/dL 08/13/2018 6:20 AM [facility] Albumin 2.8(L) 3.2 - 4.6 gm/dL 08/13/2018 6:20 AM [facility] Phosphorus 3.1 2.5 - 4.5 mg/dL 08/13/2018 6:20 AM [facility] GFR Afr Am 30(L) >=60 mL/min/1.7 3 m2 08/13/2018 6:20 AM [facility] GFR Non Afr Am 26(L) >=60 mL/min/1.7 3 m2 08/13/2018 6:20 AM [facility] Comment: This estimated GFR was [...] or muscle mass. Blood Venipuncture / Unknown 08/13/2018 5:50 AM EDT 08/13/2018 5:58 AM EDT us Slim [place] MD CHEMISTRY ORDERABLES Final Res ult [facility] [address] [facility] [place] [address] * (ABNORMAL) CBC WITH DIFF (08/13/2018 5:50 AM EDT) WBC 4.4 4.0 - 11.0 x10(3)/mcL 08/13/2018 6:01 AM EDT [facility] RBC 3.32(L) 3.80 - 5.10 x10(6)/mcL 08/13/2018 6:01 AM EDT [facility] Hgb 9.9(L) 12.0 - 15.6 g/dL 08/13/2018 6:01 AM EDT [facility] Hct 30.2(L) 35.7 - 45.9 % 08/13/2018 6:01 AM EDT [facility] MCV 90.9 82.5 - 99.8 fL 08/13/2018 6:01 AM EDT [facility] MCH 29.8 27.0 - 34.3 pg 08/13/2018 6:01 AM EDT [facility] [place] [facility] MCHC 32.8 32.1 - 35.3 g/dL 08/13/2018 6:[address] [facility] RDW 14.0 11.5 - 15.0 % 08/13/2018 6:01 AM EDT [facility] Platelet 118(L) 144 - 423 x10(3)/mcL 08/13/2018 6:01 AM EDT [facility] MPV 9.8 6.8 - 10.8 fL 08/13/2018 6:01 AM EDT [facility] Neut Percent 57.4 % 08/13/2018 6:[address] [facility] [place] Lymph Percent 28.6 % 08/13/2018 6:[address] [facility] [place] [place] Percent 9.2 % 08/13/2018 6:[address] [facility] [place] Eos Percent 4.2 % 08/13/2018 6:[address] [facility] [place] Baso Percent 0.6 % 08/13/2018 6:[address] [facility] [place] Neut # 2.5 1.8 - 7.7 x10(3)/[facility] 08/13/2018 6:[address] [facility] [place] Lymph # 1.3 0.6 - 4.8 x10(3)/[facility] 08/13/2018 6:[address] [facility] [place] [place] # 0.4 0.0 - 1.3 x10(3)/[facility] 08/13/2018 6:[address] [facility] [place] Eos# 0.2 0.0 - 0.5 x10(3)/[facility] 08/13/2018 6:01 AM EDT [facility] Baso # 0.0 0.0 - 0.2 x10(3)/[facility] 08/13/2018 6:[address] [facility] [place] Blood VENOUS BLOOD / Unknown Venipuncture / Unknown 08/13/2018 5:50 AM EDT 08/13/2018 5:58 AM EDT Mayo Batres MD HEMATOLOGY ORDERABLES Final Re sult Performing Organization Address City/[facility] Co de Phone Number [facility] [place] [address] [address] * UREA NITROGEN LEVEL URINE (08/12/2018 10:12 PM EDT) Urine Urea 295.8 mg/dL 08/13/2018 1:15 AM EDT [employer] Urine URINE SPECIMEN COLLECTION / Unknown 08/12/2018 10:12 PM EDT 08/12/2018 10:18 PM EDT Mayo Batres MD URINE ORDERABLES Final Result Performing Organization Address [facility] Co de Phone Number [facility] [address] [facility] , [place] [address] * CREATININE LEVEL URINE (08/12/2018 10:12 PM EDT) Urine Creatinine 33.4 mg/dL 08/13/2018 1:15 AM EDT [facility] [employer] Urine URINE SPECIMEN COLLECTION / Unknown 08/12/2018 10:12 PM EDT 08/12/2018 10:18 PM EDT Mayo Batres MD URINE ORDERABLES Final Result [facility] [employer] [address] [place] [address] * (ABNORMAL) GLUCOSE METER POC (08/12/2018 9:03 PM EDT) Glucose Meter POC 173(H) 70 - 100 mg/dL 08/12/2018 9:05 PM EDT [facility] Sample Type Capillary 08/12/2018 9:05 PM EDT [facility] Patient Status Non-Critical Patient 08/12/2018 9:05 PM EDT [facility] Blood BLOOD SPECIMEN / Unknown 08/12/2018 9:03 PM EDT 08/12/2018 9:04 PM EDT us Mayo Batres MD POINT OF CARE TEST ORDERABLES Final Result Performing Organization Address [facility]/ZIP Co de Phone Number [facility] [address] [place] [phone] * ECG AND WAVEFORMS - TELEMETRY (08/12/2018 7:02 PM EDT) ECG INTERPRET Sinus Bradycardia [facility] [employer] APPROVED Yes [facility] 08/12/2018 7:02 PM EDT Narrative [facility] - 08/12/2018 10:56 PM EDT ??See Clinical Report link for waveform capture us Unknown Provider POINT OF CARE CARDIOLOGY Final Result Performing Organization Address City/[facility]/ZIP Co de Phone Number [facility] [address] [place] [address] * (ABNORMAL) GLUCOSE METER POC (08/12/2018 5:09 PM EDT) Glucose Meter POC 141(H) 70 - 100 mg/dL 08/12/2018 5:10 PM EDT [facility] Sample Type Capillary 08/12/2018 5:10 PM EDT [facility] Patient Status Non-Critical Patient 08/12/2018 5:10 PM EDT [facility] Blood BLOOD SPECIMEN / Unknown 08/12/2018 5:09 PM EDT 08/12/2018 5:10 PM EDT Mayo Batres MD POINT OF CARE TEST ORDERABLES Final Result Performing Organization Address [facility] Co de Phone Number [facility] [address] [place] [address] * (ABNORMAL) GLUCOSE METER POC (08/12/2018 2:05 PM EDT) Glucose Meter POC 164(H) 70 - 100 mg/dL 08/12/2018 2:08 PM EDT [facility] Sample Type Capillary 08/12/2018 2:08 PM EDT [facility] Patient Status Non-Critical Patient 08/12/2018 2:08 PM EDT [facility] Blood BLOOD SPECIMEN / Unknown 08/12/2018 2:05 PM EDT 08/12/2018 2:08 PM EDT Mayo Batres MD POINT OF CARE TEST ORDERABLES Final Result [facility] [address] [place] [address] * (ABNORMAL) COMPREHENSIVE METABOLIC PANEL (08/12/2018 1:50 PM EDT) Sodium 141 136 - 145 mmol/L 08/12/2018 4:59 PM EDT [facility] Potassium 4.0 3.5 - 5.0 mmol/L 08/12/2018 4:59 PM EDT [facility] Chloride 106 98 - 107 mmol/L 08/12/2018 4:59 PM [facility] Total CO2 22 22 - 29 mmol/L 08/12/2018 4:59 PM [facility] Anion Gap 13 7 - 16 mmol/L 08/12/2018 4:59 PM [facility] Calcium 8.3(L) 8.8 - 10.4 mg/dL 08/12/2018 4:59 PM [facility] Glucose Lvl 189(H) 82 - 100 mg/dL 08/12/2018 4:59 PM [facility] BUN 46(H) 8 - 23 mg/dL 08/12/2018 4:59 PM [facility] Creatinine 2.96(H) 0.51 - 1.30 mg/dL 08/12/2018 4:59 PM [facility] Albumin 3.0(L) 3.2 - 4.6 gm/dL 08/12/2018 4:59 PM [facility] Total Protein 6.0(L) 6.4 - 8.3 gm/dL 08/12/2018 4:59 PM [facility] Bili Total 0.2 0.1 - 1.3 mg/dL 08/12/2018 4:59 PM [facility] ALT 8 <=41 IU/L 08/12/2018 4:59 PM [facility] AST 13 <=40 IU/L 08/12/2018 4:59 PM [facility] Alk Phos 121 36 - 123 IU/L 08/12/2018 4:59 PM [facility] GFR Afr Am 18(L) >=60 mL/min/1.7 3 m2 08/12/2018 4:59 PM [facility] GFR Non Afr Am 16(L) >=60 mL/min/1.7 3 m2 08/12/2018 4:59 PM T [facility] Comment: This estimated GFR was calculated [...] VENOUS BLOOD / Unknown Venipuncture / Unknown 08/12/2018 1:50 PM EDT 08/12/2018 2:03 PM EDT Slim Lowe MD CHEMISTRY ORDERABLES Final Res ult Performing Organization Address [facility] [[email or web address]] de Phone Number [facility] [address] [place], [place] [id number] * (ABNORMAL) URIC ACID (08/12/2018 1:50 PM EDT) Uric Acid 7.4(H) 2.4 - 5.7 mg/dL 08/12/2018 4:59 PM EDT [facility] Blood VENOUS BLOOD / Unknown Venipuncture / Unknown 08/12/2018 1:50 PM EDT 08/12/2018 2:03 PM EDT Slim Lowe MD CHEMISTRY ORDERABLES Final Res ult Performing Organization Address [facility] [[email or web address]] de Phone Number [facility] [address] [place] [address] * (ABNORMAL) TROPONIN-T HIGH SENSITIVITY (08/12/2018 1:50 PM EDT) [id number] 15(H) <14 ng/L 08/12/2018 2:32 PM EDT [facility] Comment: See the website below for rule out [place], conditions other than AMI that can cause elevated hs cTnT, and comparison of values from the 4th and 5th generation Rob tests. https://[email or web address]/clinical-answers/[email or web address] Blood VENOUS BLOOD / Unknown Venipuncture / Unknown 08/12/2018 1:50 PM EDT 08/12/2018 2:03 PM EDT Narrative [facility] - 08/12/2018 2:32 PM EDT Ingestion of charles doses of biotin (>5 mg/day) taken within 8 hours of drawing blood sample can interfere with this immunoassay test. us Raul Castillo MD CHEMISTRY ORDERABLES Final Resu lt Performing Organization Address [facility]/ZIP Co de Phone Number [facility] [address] [place] [address] * ECG AND WAVEFORMS - TELEMETRY (08/12/2018 1:34 PM EDT) Pathologist [facility] ECG INTERPRET Sinus Bradycardia [facility] [employer] APPROVED Yes [facility] 08/12/2018 1:34 PM EDT Narrative [facility] - 08/12/2018 1:59 PM EDT ??See Clinical Report link for waveform capture us Unknown Provider POINT OF CARE CARDIOLOGY Final Result Performing Organization Address [facility] Co de Phone Number [facility] [address] [place] [address] * (ABNORMAL) TROPONIN-T HIGH SENSITIVITY (08/12/2018 9:52 AM EDT) [id number] 16(H) <14 ng/L 08/12/2018 10:16 AM EDT [facility] Comment: See the website below for rule out [place], conditions other than AMI that can cause elevated hs cTnT, and comparison of values from the 4th and 5th generation Rob tests. https://[email or web address]/clinical-answers/[email or web address] Blood VENOUS BLOOD / Unknown Venipuncture / Unknown 08/12/2018 9:52 AM EDT 08/12/2018 9:54 AM EDT Narrative [facility] - 08/12/2018 10:16 AM EDT Ingestion of charles doses of biotin (>5 mg/day) taken within 8 hours of drawing blood sample can interfere with this immunoassay test. us Raul Castillo MD CHEMISTRY ORDERABLES Final Resu lt [facility] [address] [place] [address] [place] [address] * (ABNORMAL) URINE CULTURE (NO STAIN) (08/12/2018 9:02 AM EDT) Culture Positive Growth(A) 08/14/2018 10:51 AM EDT [facility] Culture >[id number] CFU/mL Escherichia coli SUSCEPTIBI LITY RESULT 08/14/2018 10:51 AM EDT [facility] Urine URINE SPECIMEN COLLECTION, CLEAN CATCH / Unknown 08/12/2018 9:02 AM EDT 08/12/2018 9:06 AM EDT Narrative Organism Antibiotic Method Susceptibility Escherichia coli Amikacin SUSCEPTIBILITY RESULT <=16 ug/mL: Susceptible Escherichia coli Amoxicillin/Clavulanate SUSCEPTIBILIT Y RESULT <=4/2 ug/mL: Susceptible Escherichia coli Ampicillin SUSCEPTIBILITY RESULT <=8 ug/mL: Susceptible Escherichia coli Ampicillin/Sulbactam SUSCEPTIBILITY R ESULT <=1/0.5 ug/mL: Susceptible Escherichia coli Aztreonam SUSCEPTIBILITY RESULT <=4 ug/mL: Susceptible Escherichia coli Cefazolin SUSCEPTIBILITY RESULT <=2 ug/mL: Susceptible Escherichia coli Cefepime SUSCEPTIBILITY RESULT Escherichia coli Cefotaxime SUSCEPTIBILITY RESULT Escherichia coli Cefoxitin SUSCEPTIBILITY RESULT <=8 ug/mL: Susceptible Escherichia coli Ceftazidime SUSCEPTIBILITY RESULT Escherichia coli Ceftriaxone SUSCEPTIBILITY RESULT Escherichia coli Cefuroxime SUSCEPTIBILITY RESULT Escherichia coli Ciprofloxacin SUSCEPTIBILITY RESULT <=1 ug/mL: Susceptible Escherichia coli Ertapenem SUSCEPTIBILITY RESULT <=0.5 ug/mL: Susceptible Escherichia coli Gentamicin SUSCEPTIBILITY RESULT 2 ug/mL: Susceptible Escherichia coli Imipenem SUSCEPTIBILITY RESULT <=0.5 ug/mL: Susceptible Escherichia coli Levofloxacin SUSCEPTIBILITY RESULT <=0.25 ug/mL: Susceptible Escherichia coli Meropenem SUSCEPTIBILITY RESULT <=1 ug/mL: Susceptible Escherichia coli Nitrofurantoin SUSCEPTIBILITY RESULT <=32 ug/mL: Susceptible Escherichia coli Piperacillin/Tazobactam SUSCEPTIBILIT Y RESULT <=4 ug/mL: Susceptible Escherichia coli Tetracycline SUSCEPTIBILITY RESULT <=4 ug/mL: Susceptible Escherichia coli Tigecycline SUSCEPTIBILITY RESULT Escherichia coli Tobramycin SUSCEPTIBILITY RESULT <=1 ug/mL: Susceptible Escherichia coli Trimethoprim/Sulfame tho xazole SUSCEPTIBILITY RESULT <=2/38 ug/mL: Susceptible Raul Castillo MD MICROBIOLOGY - GENERAL ORDERABL ES Final Result Performing Organization Address [facility] Co de Phone Number [facility], [facility] [address] [facility], [place] [address] * EXTRA SMALL URINE CX (08/12/2018 9:02 AM EDT) Urine URINE SPECIMEN COLLECTION, CLEAN CATCH / Unknown 08/12/2018 9:02 AM EDT 08/12/2018 9:06 AM EDT Raul Castillo MD MICROBIOLOGY - GENERAL ORDERABL ES Final Result Performing Organization Address [facility] [[email or web address]] de Phone Number [address] [address] * (ABNORMAL) URINALYSIS (08/12/2018 9:02 AM EDT) UA Color Yellow 08/12/2018 9:16 AM EDT [facility] UA Appear Slightly Cloudy(A) Clear 08/12/2018 9:16 AM EDT [facility] UA Glucose Negative Negative mg/dL 08/12/2018 9:16 AM EDT [facility] UA Ketones Negative Negative mg/dL 08/12/2018 9:16 AM EDT [facility] UA Blood Trace-Intac t(A) Negative 08/12/2018 9:16 AM EDT [facility] UA pH 6.0 5.0 - 8.0 pH 08/12/2018 9:16 AM EDT [facility] UA Protein 30(A) Negative mg/dL 08/12/2018 9:16 AM EDT [facility] UA Urobilinogen 0.2 <=1 mg/dL 9 9:16 AM EDT [facility] UA Bili Negative Negative 08/12/2018 9:16 AM EDT [facility] UA Nitrite Positive(A) Negative 08/12/2018 9:16 AM EDT [facility] UA Leuk Est Large(A) Negative 08/12/2018 9:16 AM EDT [facility] UA Spec Grav 1.015 1.001 - 1.035 no units 08/12/2018 9:16 AM EDT [facility] Comment: Reference range valid for random specimens only. UA WBC 50(H) 0 - 4 /HPF 08/12/2018 9:16 AM EDT [facility] UA RBC 1 0 - 3 /HPF 08/12/2018 9:16 AM EDT [facility] UA Squam Epi 1+ /LPF 08/12/2018 9:16 AM EDT [facility] UA Bacteria 2+(A) Negative /HPF 08/12/2018 9:16 AM EDT [facility] Urine URINE SPECIMEN COLLECTION, CLEAN CATCH / Unknown 08/12/2018 9:02 AM EDT 08/12/2018 9:06 AM EDT Raul Castillo MD URINE ORDERABLES Final Result [place] [id number] * XR HIP RIGHT AP LATERAL W AP PELVIS (08/12/2018 8:50 AM EDT) Anatomical Region Laterality Modality Hip Radiographic Whit ging 08/12/2018 8:50 AM EDT Impressions 08/12/2018 9:21 AM EDT No acute abnormality of the hip or pelvis. - - Narrative 08/12/2018 9:21 AM EDT XR HIP RIGHT AP LATERAL W AP PELVIS, ??08/12/2018 8:50 AM CLINICAL HISTORY: ??-FALL -HYPOGLYCEMIA COMPARISON: ??2017 PROCEDURE COMMENTS: ??AP view of the pelvis with AP and frog-leg views of the hip. FINDINGS: Bony structure of the pelvis and hips intact. No fracture or dislocation. Joint spaces are maintained. Procedure Note Fransisco Kidd MD - 08/12/2018 XR HIP RIGHT AP LATERAL W AP PELVIS, 08/12/2018 8:50 AM CLINICAL HISTORY: -FALL -HYPOGLYCEMIA COMPARISON: 2016 PROCEDURE COMMENTS: AP view of the pelvis with AP and frog-leg views ofthe hip. FINDINGS: Bony structure of the pelvis and hips intact. No fracture ordislocation. Joint spaces are maintained. IMPRESSION: No acute abnormality of the hip or pelvis. - - Raul Castillo MD [facility] ORDERABL ES Final Result * XR CHEST PA AND LATERAL (08/12/2018 8:50 AM EDT) Anatomical Region Laterality Modality Chest Radiographic Whit ging 08/12/2018 8:50 AM EDT Impressions 08/12/2018 9:10 AM EDT No acute finding. - - Narrative 08/12/2018 9:10 AM EDT PA AND LATERAL CHEST X-RAY, ??08/12/2018 8:50 AM CLINICAL HISTORY: ??-Sepsis -Sepsis -FALL -HYPOGLYCEMIA COMPARISON: ??July 2018 PROCEDURE COMMENTS: Frontal and lateral views of the chest. FINDINGS: Cardiovascular structures are stable. ??No pneumonia or effusion. ??No pneumothorax. Procedure Note Fransisco Kidd MD - 08/12/2018 PA AND LATERAL CHEST X-RAY, 08/12/2018 8:50 AM CLINICAL HISTORY: -Sepsis -Sepsis -FALL -HYPOGLYCEMIA COMPARISON: July 2018 PROCEDURE COMMENTS: Frontal and lateral views of the chest. FINDINGS: Cardiovascular structures are stable. No pneumonia or effusion. No pneumothorax. IMPRESSION: No acute finding. - - Raul Castillo MD [facility] ORDERABL ES Final Result * BLOOD CULTURE (NO STAIN) (08/12/2018 8:23 AM EDT) Culture Result No Growth at 120 hours. BLOOD CULTURE (NO STAIN) 08/17/2018 3:00 PM EDT [facility] [employer] [facility] Blood VENOUS BLOOD / Unknown Venipuncture / Unknown 08/12/2018 8:23 AM EDT 08/12/2018 8:25 AM EDT Raul Castillo MD MICROBIOLOGY - GENERAL ORDERABL ES Final Result Performing Organization Address City/State/[facility] Co de Phone Number [facility] [employer] [facility] [address] [place] [address] * BLOOD CULTURE (NO STAIN) (08/12/2018 8:23 AM EDT) Culture Result No Growth at 120 hours. BLOOD CULTURE (NO STAIN) 08/17/2018 3:00 PM EDT [facility] [employer] [facility] Blood VENOUS BLOOD / Unknown Venipuncture / Unknown 08/12/2018 8:23 AM EDT 08/12/2018 8:25 AM EDT Raul Castillo MD MICROBIOLOGY - GENERAL ORDERABL ES Final Result Performing Organization Address [facility] Co de Phone Number [facility] [employer] [address] , [place] [address] * (ABNORMAL) NT PROBNP (08/12/2018 7:47 AM EDT) NT Pro-BNP 433(H) <=319 pg/mL 08/12/2018 8:[address] [facility] Blood VENOUS BLOOD / Unknown Venipuncture / Unknown 08/12/2018 7:47 AM EDT 08/12/2018 7:52 AM EDT Narrative [facility] - 08/12/2018 8:23 AM EDT An NT pro-BNP level less than 300 pg/mL in any patient, regardless of age, effectively rules out acute CHF with a 99% negative predictive value. Raul Castillo MD CHEMISTRY ORDERABLES Final Resu lt Performing Organization Address [facility] [[email or web address]] de Phone Number [facility] [address] [place] [address] * (ABNORMAL) TROPONIN-T HIGH SENSITIVITY (08/12/2018 7:47 AM EDT) [id number] 17(H) <14 ng/L 08/12/2018 8:23 AM EDT [facility] Comment: See the website below for rule out [place] care pathway, conditions other than AMI that can cause elevated hs cTnT, and comparison of values from the 4th and 5th generation Rob tests. https://[email or web address]/clinical-answers/[email or web address]/[email or web address] Blood VENOUS BLOOD / Unknown Venipuncture / Unknown 08/12/2018 7:47 AM EDT 08/12/2018 7:52 AM EDT Narrative [facility] - 08/12/2018 8:23 AM EDT Ingestion of charles doses of biotin (>5 mg/day) taken within 8 hours of drawing blood sample can interfere with this immunoassay test. us Raul Castillo MD CHEMISTRY ORDERABLES Final Resu lt [facility] [address] [place] [address] * (ABNORMAL) BLOOD GAS, VENOUS (08/12/2018 7:47 AM EDT) pH Venous 7.33 7.32 - 7.42 pH 08/12/2018 7:56 AM EDT [facility] pCO2 Venous 56(H) 41 - 51 mmHg 08/12/2018 7:56 AM EDT [facility] pO2 Venous <42(H) 25 - 40 mmHg 08/12/2018 7:56 AM EDT [facility] Comment: The peripheral venous blood gas oxygen level (PvO2) is not clinically useful and PvO2 levels <42 mmHg in venous blood gases are below the analytical measuring range for our blood gas instrumentation. Base Excess Martín 2.5 mmol/L 9 7:56 AM EDT [facility] Hco3 Venous 29.5(H) 24.0 - 28.0 mmol/L 08/12/2018 7:56 AM EDT [facility] CO2 Total Martín 28 25 - 29 mmol/L 08/12/2018 7:56 AM EDT [facility] O2 Sat. Venous 37.5(L) 40.0 - 70.0 % 08/12/2018 7:[address] [facility] Blood VENOUS BLOOD / Unknown Venipuncture / Unknown 08/12/2018 7:47 AM EDT 08/12/2018 7:52 AM EDT us Raul Castillo MD CHEMISTRY ORDERABLES Final Resu lt Performing Organization Address [facility] [[email or web address]] de Phone Number [facility] [address] [facility] [place] [address] * PROCALCITONIN (08/12/2018 7:47 AM EDT) Procalcitonin 0.49 <=0.49 ng/mL 08/12/2018 8:23 AM EDT [facility] Blood VENOUS BLOOD / Unknown Venipuncture / Unknown 08/12/2018 7:47 AM EDT 08/12/2018 7:52 AM EDT Narrative [facility] - 08/12/2018 8:23 AM EDT Procalcitonin <0.50 ng/mL: Procalcitonin levels below 0.50 ng/mL on the first day of ICU admission represent a low risk for progression to severe sepsis and/or septic shock Procalcitonin >=0.50 ng/mL and <=2.00 ng/mL: If the procalcitonin measurement is performed shortly after the systemic infection process has started (usually less than 6 hours), this value may still be low. ??As various non-infectious conditions are known to induce procalcitonin as well, procalcitonin levels between 0.50 ng/mL and 2.00 ng/mL should be reviewed carefully to take into account the specific clinical background and condition(s) of the patient. Procalcitonin >2.00 ng/mL: Procalcitonin levels above 2.00 ng/mL on the first day of ICU admission represent a high risk for progression to severe sepsis and/or septic shock. Raul Castillo MD CHEMISTRY ORDERABLES Final Resu lt Performing Organization Address [facility] [[email or web address]] de Phone Number [facility] [address] [facility] [address] [place], [place] [address] * LACTIC ACID (08/12/2018 7:47 AM EDT) Lactic Acid 1.0 0.5 - 1.9 mmol/L 08/12/2018 8:10 AM EDT [facility] Blood VENOUS BLOOD / Unknown Venipuncture / Unknown 08/12/2018 7:47 AM EDT 08/12/2018 7:52 AM EDT us Raul Castillo MD CHEMISTRY ORDERABLES Final Resu lt [facility] [address] [facility] [place] [address] * (ABNORMAL) COMPREHENSIVE METABOLIC PANEL (08/12/2018 7:47 AM EDT) Pathologist [facility] Sodium 140 136 - 145 mmol/L 08/12/2018 8:[address] [facility] Potassium 3.9 3.5 - 5.0 mmol/L 08/12/2018 8:12 AM EDT [facility] Chloride 101 98 - 107 mmol/L 08/12/2018 8:12 AM EDT [facility] Total CO2 26 22 - 29 mmol/L 08/12/2018 8:12 AM EDT [facility] Anion Gap 13 7 - 16 mmol/L 08/12/2018 8:12 AM EDT [facility] Calcium 9.1 8.8 - 10.4 mg/dL 08/12/2018 8:12 AM EDT [facility] Glucose Lvl 93 82 - 100 mg/dL 08/12/2018 8:12 AM EDT [facility] BUN 47(H) 8 - 23 mg/dL 08/12/2018 8:12 AM EDT [facility] Creatinine 3.38(H) 0.51 - 1.30 mg/dL 08/12/2018 8:12 AM EDT [facility] Albumin 3.5 3.2 - 4.6 gm/dL 08/12/2018 8:12 AM EDT [facility] Total Protein 6.8 6.4 - 8.3 gm/dL 08/12/2018 8:12 AM EDT [facility] Bili Total 0.4 0.1 - 1.3 mg/dL 08/12/2018 8:12 AM EDT [facility] ALT 10 <=41 IU/L 08/12/2018 8:12 AM EDT [facility] AST 15 <=40 IU/L 08/12/2018 8:12 AM EDT [facility] Alk Phos 121 36 - 123 IU/L 08/12/2018 8:12 AM EDT [facility] GFR Afr Am 15(L) >=60 mL/min/1.7 3 m2 08/12/2018 8:12 AM EDT [facility] GFR Non Afr Am 13(L) >=60 mL/min/1.7 3 m2 08/12/2018 8:12 AM EDT [facility] Comment: This estimated GFR was calculated [...] VENOUS BLOOD / Unknown Venipuncture / Unknown 08/12/2018 7:47 AM EDT 08/12/2018 7:52 AM EDT us Raul Castillo MD CHEMISTRY ORDERABLES Final Resu lt [facility] [address] [facility] [place] [address] * (ABNORMAL) CBC WITH DIFF (08/12/2018 7:47 AM EDT) WBC 6.2 4.0 - 11.0 x10(3)/mcL 08/12/2018 7:57 AM EDT [facility] RBC 3.62(L) 3.80 - 5.10 x10(6)/mcL 08/12/2018 7:57 AM EDT [facility] Hgb 11.0(L) 12.0 - 15.6 g/dL 08/12/2018 7:57 AM EDT [facility] Hct 32.8(L) 35.7 - 45.9 % 08/12/2018 7:57 AM EDT [facility] MCV 90.6 82.5 - 99.8 fL 08/12/2018 7:57 AM EDT [facility] MCH 30.4 27.0 - 34.3 pg 08/12/2018 7:57 AM EDT [facility] MCHC 33.6 32.1 - 35.3 g/dL 08/12/2018 7:57 AM EDT [facility] RDW 14.0 11.5 - 15.0 % 08/12/2018 7:57 AM EDT [facility] Platelet 130(L) 144 - 423 x10(3)/mcL 08/12/2018 7:57 AM EDT [facility] MPV 9.9 6.8 - 10.8 fL 08/12/2018 7:57 AM EDT [facility] Neut Percent 68.9 % 08/12/2018 7:57 AM EDT [facility] Lymph Percent 19.2 % 08/12/2018 7:57 AM EDT [facility] [place] Percent 9.6 % 08/12/2018 7:57 AM EDT [facility] Eos Percent 1.9 % 08/12/2018 7:57 AM EDT [facility] Baso Percent 0.4 % 08/12/2018 7:57 AM EDT [facility] Neut # 4.3 1.8 - 7.7 x10(3)/mcL 08/12/2018 7:57 AM EDT [facility] Lymph # 1.2 0.6 - 4.8 x10(3)/mcL 08/12/2018 7:57 AM EDT [facility] [place] # 0.6 0.0 - 1.3 x10(3)/mcL 08/12/2018 7:57 AM EDT [facility] Eos# 0.1 0.0 - 0.5 x10(3)/mcL 08/12/2018 7:57 AM EDT [facility] Baso # 0.0 0.0 - 0.2 x10(3)/mcL 08/12/2018 7:57 AM EDT [facility] Blood VENOUS BLOOD / Unknown Venipuncture / Unknown 08/12/2018 7:47 AM EDT 08/12/2018 7:52 AM EDT us Raul Castillo MD HEMATOLOGY ORDERABLES Final Res ult [facility] [address] [facility] [place] [address] * EK EKG 12 LEAD (08/12/2018 7:34 AM EDT) Anatomical Region Laterality Modality Electrocardiogra phy 08/12/2018 7:37 AM EDT Impressions 08/12/2018 12:52 PM EDT ? [facility] ? Test Date: ?2018-08-12 Pat Name: ? FABY PALM ?Department: ?? [facility] ? Room: ? E2409 Gender: ? Female ? 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 Requested By: RAUL Saleem Order Number: [id number] ?Reading MD: ?? Kamari Goss MD ? Measurements Intervals ?[place] ? Rate: ? 46 ? P: ? NM: ? 164 ?QRS: ? QRSD: ? 97 ? T: ?62 QT: ? 489 ? QTc: ?429 ? 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: Cruz : 1950 Requested By: RAUL Saleem Order Number: [id number] Reading MD: Kamari Goss MD Measurements Intervals [place] Rate: 46 P: NM: 164 QRS: QRSD: 97 T: 62 QT: 489 QTc: 429 Interpretive Statements SINUS BRADYCARDIA LOW QRS VOLTAGE IN PRECORDIAL LEADS INFERIOR MYOCARDIAL INFARCTION, OF INDETERMINATE AGE ANTEROSEPTAL MYOCARDIAL INFARCTION, PROBABLY OLD NO CHANGE Electronically Signed On 08-12-2018 12:52:00 EDT by Kamari Goss MD Raul Castillo MD IMG ECG ORDERABLES Final Result * GLUCOSE METER POC (08/12/2018 7:23 AM EDT) [facility] Glucose Meter POC 71 70 - 100 mg/dL 08/12/2018 7:24 AM EDT [facility] Sample Type Capillary 08/12/2018 7:24 AM EDT [facility] Patient Status Non-Critical Patient 08/12/2018 7:24 AM EDT [facility] Blood BLOOD SPECIMEN / Unknown 08/12/2018 7:23 AM EDT 08/12/2018 7:24 AM EDT Raul Castillo MD POINT OF CARE TEST ORDERABLES F inal Result Performing Organization Address City/State/[facility] Co de Phone Number [facility] [address] [place] [address] documented in this encounter Visit Diagnoses Diagnosis Hypovolemic shock (HCC)- Primary Other shock without mention of trauma Hypotension, unspecified hypotension type Acute kidney injury (HCC) Acute kidney failure, unspecified Contusion of right hip, initial encounter Sepsis, due to unspecified organism Essential hypertension Unspecified essential hypertension ASHD (arteriosclerotic heart disease) Coronary atherosclerosis of unspecified type of vessel, [place] or graft Chronic diastolic heart failure (HCC) Chronic diastolic heart failure Schizoaffective disorder, depressive type (HCC) Schizoaffective disorder, unspecified condition Severe obesity (BMI 35.0-39.9) with comorbidity (HCC) Diabetes mellitus type 2 in obese Type II or unspecified type diabetes mellitus without mention of complication, not stated as uncontrolled JACK (acute kidney injury) (HCC) Acute kidney failure, unspecified Falls, initial encounter documented in this encounter Administered Medications Inactive Administered Medications - up to 1 most recent administrations Medication Order MAR Action Action Date Dose Rate Site 0.9 % NaCl infusion Intravenous, at 125 mL/hr, CONTINUOUS, Starting on Wed08/12/18 at 1645, Until 08/13/18 at 0844 Rate/Dose Verify 08/13/2018 9:30 AM EDT 125 mL/hr 0.9 % NaCl IV bolus 1,000 mL 1,000 mL, Intravenous, ONCE, 1 dose, On Wed08/12/18 at 0745, Administer over 2 Hours, Bag 1 of 2 - IV crystalloid 30 mL/kg based on [place] body weight: 57 kg (125 lb 10.6 oz) for BMI greater than 30 IV Started 08/12/2018 8:19 AM EDT 1,000 mL 500 mL/hr 0.9 % NaCl IV bolus 1,000 mL 1,000 mL, Intravenous, ONCE, 1 dose, On Wed08/12/18 at 0945, Administer over 2 Hours, Bag 2 of 2 - IV crystalloid 30 mL/kg based on [place] body weight: 57 kg (125 lb 10.6 oz) for BMI greater than 30 IV Started 08/12/2018 10:28 AM EDT 1,000 mL 500 mL/hr acetaminophen (TYLENOL) suppository 650 mg 650 mg, Rectal, EVERY 4 HOURS PRN, Starting on Wed08/12/18 at 1511, Until Wed08/14/18 at 1839, Pain, Fever, Temp greater than 102 F, Maximum adult dose of acetaminophen is 4000 mg from all sources in 24 hours. acetaminophen (TYLENOL) tablet 1,000 mg 1,000 mg, Oral, ONCE, 1 dose, On Wed08/12/18 at 1545, Maximum adult dose of acetaminophen is 4000 mg from all sources in 24 hours. Given 08/12/2018 2:25 PM EDT 1,000 mg acetaminophen (TYLENOL) tablet 650 mg 650 mg, Oral, ONCE, 1 dose, On Wed08/12/18 at 0800, Maximum adult dose of acetaminophen is 4000 mg from all sources in 24 hours. Given 08/12/2018 8:20 AM EDT 650 mg acetaminophen (TYLENOL) tablet 650 mg 650 mg, Oral, EVERY 4 HOURS PRN, Starting on Wed08/12/18 at 1511, Until Wed08/14/18 at 1839, Pain, Fever, Temp greater than 102 F, Maximum adult dose of acetaminophen is 4000 mg from all sources in 24 hours. Given 08/13/2018 2:30 AM EDT 650 mg albuterol (PROVENTIL HFA; VENTOLIN HFA) INHALER 2 Puff 2 Puff, Inhalation, PRN, Starting on Wed08/12/18 at 1945, Until Wed08/14/18 at 1839, Wheezing, Shortness of Breath, Waste Sort Code = SP Given 08/14/2018 8:18 AM EDT 2 Puffs albuterol (PROVENTIL) nebulizer solution 2.5 mg 2.5 mg, Nebulization, PRN, Starting on Wed08/12/18 at 1945, Until Wed08/14/18 at 1839, Wheezing, Shortness of Breath, Bronchospasm amLODIPine (NORVASC) tablet 5 mg 5 mg, Oral, DAILY, First dose on Wed08/14/18 at 1100, Until Discontinued Given 08/14/2018 12:07 PM EDT 5 mg ARIPiprazole (ABILIFY) tablet 30 mg 30 mg, Oral, DAILY, First dose on Wed08/12/18 at 1845, Until Discontinued Given 08/14/2018 9:16 AM EDT 30 mg aspirin chewable tablet 81 mg 81 mg, Oral, DAILY, First dose on Wed08/12/18 at 1900, Until Discontinued Given 08/14/2018 9:16 AM EDT 81 mg atorvastatin (LIPITOR) tablet 20 mg 20 mg, Oral, NIGHTLY, First dose on Wed08/12/18 at 2100, Until Discontinued Given 08/13/2018 8:17 PM EDT 20 mg calcium carbonate-vitamin D 500 mg(1,250mg) -200 unit per tablet 1 Tab 1 Tablet, Oral, 2 TIMES DAILY, First dose on Wed08/12/18 at 2100, Until Discontinued Given 08/14/2018 9:16 AM EDT 1 Tablet cefTRIAXone in dextrose (ROCEPHIN) 2 gram/50 mL IVPB 2 g 2 g, Intravenous, EVERY 24 HOURS SCHEDULED (Daily), 7 doses, First dose on Wed08/12/18 at 0930, Last dose on Wed08/18/18 at 0900, Administer over 30 Minutes, IV Started 08/13/2018 10:25 AM EDT 2 g 100 mL/hr cephALEXin (KEFLEX) capsule 500 mg 500 mg, Oral, EVERY 12 HOURS SCHEDULED (2 times per day), 14 doses, First dose on Wed08/14/18 at 1245, Last dose on Wed08/20/18 at 2100 Given 08/14/2018 12:21 PM EDT 500 mg clopidogrel (PLAVIX) tablet 75 mg 75 mg, Oral, DAILY, First dose on Wed08/12/18 at 1900, Until Discontinued Given 08/14/2018 9:19 AM EDT 75 mg dextrose 50 % solution 25 mL 25 mL, Intravenous, PRN, Starting on Wed08/12/18 at 1510, Until Wed08/14/18 at 1839, Low blood sugar, If FSBS less than 70 mg/dl and patient cannot take orally, Check FSBS every 30 minutes and repeat 25 mL of D50 IV push and notify physician if FSBS less than 70 mg/dL VESICANT ferrous sulfate tablet 325 mg 325 mg, Oral, 2 TIMES DAILY WITH MEALS, First dose on Wed08/12/18 at 1845, Until Discontinued, Take with food other than cereals, dietary fiber, tea, coffee, eggs, or milk. Provides 65 mg of elemental iron. Do not crush. Given 08/14/2018 9:16 AM EDT 325 mg gabapentin (NEURONTIN) capsule 200 mg 200 mg, Oral, 4 TIMES DAILY, First dose on Wed08/12/18 at 1845, Until Discontinued Given 08/14/2018 12:07 PM EDT 200 mg glucagon (human recombinant) (GLUCAGEN) injection 1 mg 1 mg, Intramuscular, PRN, Starting on Wed08/12/18 at 1510, Until Wed08/14/18 at 1839, Low blood sugar, If FSBS less than 70 mg/dl, patient cannot take orally and without IV access, If patient is without IV access, give Glucagon 1 mg Intramuscularly, insert IV and call physician. insulin aspart U-100 (NovoLOG) injection 1-10 Units 1-10 Units, Subcutaneous, 4 TIMES DAILY WITH MEALS, First dose on Wed08/12/18 at 1800, Until Discontinued, Medium dose algorithm: FSBS Correction [...] hours. Waste Sort Code = BKC Given 08/14/2018 12:08 PM EDT 2 Units Right Arm insulin glargine U-100 (LANTUS) injection 20 Units 20 Units, Subcutaneous, EVERY EVENING (INSULIN), First dose on Wed08/12/18 at 1900, Until Discontinued, Waste Sort Code = BKC Given 08/13/2018 8:18 PM EDT 20 Units Right Arm lamoTRIgine (LaMICtal) tablet 100 mg 100 mg, Oral, NIGHTLY, First dose on Wed08/12/18 at 2100, Until Discontinued Given 08/13/2018 8:48 PM EDT 100 mg lamoTRIgine (LaMICtal) tablet 50 mg 50 mg, Oral, DAILY, First dose on Wed08/12/18 at 1900, Until Discontinued Given 08/14/2018 9:15 AM EDT 50 mg melatonin tablet 5 mg 5 mg, Oral, NIGHTLY, First dose on Wed08/12/18 at 2100, Until Discontinued Given 08/13/2018 8:17 PM EDT 5 mg miconazole (MICATIN) 2 % powder Topical, 2 TIMES DAILY, 84 doses, First dose on 08/14/18 at 1200, Last dose on Wed09/24/18 at 2100, Application site: [place] Given 08/14/2018 12:11 PM EDT miconazole (MICATIN) 2 % powder Topical, PRN, Starting on Wed08/14/18 at 1026, Until 08/14/18 at 1839, Wound Care, Application site: [place] nitroGLYCERIN (NITROSTAT) SL tablet 0.4 mg 0.4 mg, Sublingual, EVERY 5 MIN PRN, Starting on Wed08/12/18 at 1511, Until Wed08/14/18 at 1839, Chest pain, May give up to three (3) doses. Call MD after 3rd dose Administer for angina/chest pain prior to administration of analgesics for angina. oxybutynin (DITROPAN) tablet 5 mg 5 mg, Oral, 2 TIMES DAILY, First dose on Wed08/12/18 at 2100, Until Discontinued, Therapeutic Interchange for oxybutynin XL 10mg tab Daily Given 08/14/2018 9:16 AM EDT 5 mg pantoprazole (PROTONIX) tablet 40 mg 40 mg, Oral, 2 TIMES DAILY, First dose (after last modification) on Wed08/13/18 at 0900, Until Discontinued, Do not crush or chew Given 08/14/2018 9:15 AM EDT 40 mg QUEtiapine (SEROquel) tablet 100 mg 100 mg, Oral, NIGHTLY, First dose on Wed08/12/18 at 2100, Until Discontinued Given 08/13/2018 8:18 PM EDT 100 mg sertraline (ZOLOFT) tablet 200 mg 200 mg, Oral, DAILY, First dose on Wed08/12/18 at 1845, Until Discontinued Given 08/14/2018 9:16 AM EDT 200 mg sodium chloride 0.9 % 1,000 mL IV bolus Intravenous, ONCE, 1 dose, On Wed08/12/18 at 1100, at 983.6 mL/hr IV Started 08/12/2018 10:19 AM EDT 983.6 mL/hr sodium chloride 0.9% IV line flush 50 mL 50 mL, Intravenous, at 150-600 mL/hr, PRN, Starting on Wed08/12/18 at 0733, Until Wed08/12/18 at 1510, Line Care, Flush with 50 mL after IVPB to insure complete administration of the dose. May use the saline infusion to back flush IVPB tubing as needed., Use this order to document priming and flushing IV line after medication administration. IV Started 08/12/2018 9:36 AM EDT 50 mL 150 mL/hr documented in this encounter Discontinued Medications Medication Sig Discontinue Reason Start Date End Da te nitroGLYCERIN (NITROSTAT) 0.4 mg SL Tablet, SublingualIndications:An wendy pectoris (HCC) Place 1 Tab under the tongue every 5 minutes as needed for Chest pain. Stop Taking at Discharge 11/19/2016 08/14/2018 loperamide (IMODIUM) 2 mg Oral Capsule Take 2 mg by mouth 3 times daily as needed. Stop Taking at Discharge 08/14/2018 metFORMIN XR (GLUCOPHAGE-XR) 500 mg Oral Tablet Sustained Release 24 hr Take 500 mg by mouth daily (with breakfast). Stop Taking at Discharge 08/14/2018 amLODIPine (NORVASC) 2.5 mg Oral Tablet Take 1 Tab by mouth daily. Stop Taking at Discharge 07/20/2017 08/14/2018 omega-3 acid ethyl esters (LOVAZA) 1 gram Oral Capsule Take 1 g by mouth 2 times daily. Stop Taking at Discharge 08/14/2018 risperiDONE (RISPERDAL) 0.5 mg Oral Tablet Take 0.5 mg by mouth nightly. Stop Taking at Discharge 08/14/2018 lisinopril (PRINIVIL;ZESTRIL) 20 mg Oral TabletIndications:NSTEMI (non-ST elevated myocardial infarction) ([facility]),ASHD (arteriosclerotic heart disease),Essential hypertension,Chronic diastolic CHF (congestive heart failure) ([facility]),Hyperlipidemia, unspecified hyperlipidemia type Take 20 mg by mouth 2 times daily. Stop Taking at Discharge 08/14/2018 fUROsemide (LASIX) 20 mg Oral Tablet Take 20 mg by mouth daily. Stop Taking at Discharge 08/14/2018 miconazole (MICOTIN) 2 % Top CreamIndications:Intertr igo Apply topically 2 times daily. Please dispense largest available tube Stop Taking at Discharge 06/14/2018 08/14/2018 insulin glargine U-100 (LANTUS) 100 unit/mL SubQ SolutionIndications:Well controlled type 2 diabetes mellitus with peripheral neuropathy ([facility]),Type 2 diabetes mellitus with stage 3 chronic kidney disease, with long-term current use of insulin ([facility]) 36 units sq nightly Stop Taking at Discharge 07/12/2018 08/14/2018 OLIVE MUELLER U-100 INSULIN 100 unit/mL (3 mL) SubQ Insulin Pen INJECT 36 UNITS UNDER THE SKIN DAILY AT BEDTIME Stop Taking at Discharge 07/18/2018 08/14/2018 isosorbide mononitrate (IMDUR) 120 mg Oral Tablet Sustained Release 24 hr Take 1 Tab by mouth daily. Stop Taking at Discharge 07/20/2018 08/14/2018 PARoxetine (PAXIL-CR) 12.5 mg Oral Tablet Sustained Release 24 hr Take 12.5 mg by mouth daily. Stop Taking at Discharge 08/14/2018 documented as of this encounter Historical Medications * This list may reflect changes made after this encounter. icosapent ethyl (VASCEPA) 1 gram Oral Capsule Take 1 g by mouth 2 times daily. clopidogrel (PLAVIX) 75 mg Oral Tablet Take 75 mg by mouth daily. PARoxetine (PAXIL-CR) 12.5 mg Oral Tablet Sustained Release 24 hr Take 12.5 mg by mouth daily. 08/14/2018 added in this encounter Active and Recently Administered Medications Times are shown in EDT. Scheduled Medication Order 08/12/2018 08/13/2018 08/14/2018 0.9 % NaCl IV bolus 1,000 mL (COMPLETED)(Linked Group 1) 1,000 mL, Intravenous, ONCE, 1 dose, On Wed08/12/18 at 0745, Administer over 2 Hours, Bag 1 of 2 - IV crystalloid 30 mL/kg based on [place] body weight: 57 kg (125 lb 10.6 oz) for BMI greater than 30 0819 (IV Started - Provider: Eliza Contreras RN)1050 (Stopped - Provider: Eliza Contreras RN) 0.9 % NaCl IV bolus 1,000 mL (COMPLETED)(Linked Group 1) 1,000 mL, Intravenous, ONCE, 1 dose, On Wed08/12/18 at 0945, Administer over 2 Hours, Bag 2 of 2 - IV crystalloid 30 mL/kg based on [place] body weight: 57 kg (125 lb 10.6 oz) for BMI greater than 30 1028 (IV Started - Provider: Eliza Contreras, ROLF)1202 (Stopped - Provider: Eliza Contreras RN) acetaminophen (TYLENOL) tablet 1,000 mg (COMPLETED) 1,000 mg, Oral, ONCE, 1 dose, On Wed08/12/18 at 1545, Maximum adult dose of acetaminophen is 4000 mg from all sources in 24 hours. 1425 (Given - Provider: Dolores Olivares RN) acetaminophen (TYLENOL) tablet 650 mg (COMPLETED) 650 mg, Oral, ONCE, 1 dose, On Wed08/12/18 at 0800, Maximum adult dose of acetaminophen is 4000 mg from all sources in 24 hours. 0820 (Given - Provider: Eliza Contreras, ROLF) amLODIPine (NORVASC) tablet 5 mg 5 mg, Oral, DAILY, First dose on Wed08/14/18 at 1100, Until Discontinued 1207 (Given - Provider: Charity Kaye, RN - Comment: Blood [id number]) ARIPiprazole (ABILIFY) tablet 30 mg 30 mg, Oral, DAILY, First dose on Wed08/12/18 at 1845, Until Discontinued 2108 (Given - Provider: Diane Abarca RN) 101 (Given - Provider: Octavio Ghosh RN) 0916 (Given - Provider: Charity Kaye, RN) aspirin chewable tablet 81 mg 81 mg, Oral, DAILY, First dose on Wed08/12/18 at 1900, Until Discontinued 1999 (Not Given - Provider: Diane Abarca RN - Reason: Other)2119 (Given - Provider: Diane Abarca RN) 101 (Given - Provider: Octavio Ghosh RN) 0916 (Given - Provider: Charity Kaye, ROLF) atorvastatin (LIPITOR) tablet 20 mg 20 mg, Oral, NIGHTLY, First dose on Wed08/12/18 at 2100, Until Discontinued 2108 (Given - Provider: Diane Abarca RN) 2016 (Given - Provider: Toshia Wood, ROLF) calcium carbonate-vitamin D 500 mg(1,250mg) -200 unit per tablet 1 Tab 1 Tablet, Oral, 2 TIMES DAILY, First dose on Wed08/12/18 at 2100, Until Discontinued 2108 (Given - Provider: Diane Abarca RN) 101 (Given - Provider: Octavio Ghosh, ROLF)2017 (Given - Provider: Toshia Wood, RN) 0916 (Given - Provider: Charity Kaye, ROLF) cefTRIAXone in dextrose (ROCEPHIN) 2 gram/50 mL IVPB 2 g (CANCELED) 2 g, Intravenous, EVERY 24 HOURS SCHEDULED (Daily), 7 doses, First dose on Wed08/12/18 at 0930, Last dose on Wed08/18/18 at 0900, Administer over 30 Minutes, 0937 (IV Started - Provider: Eliza Contreras RN)1016 (Stopped - Provider: Eliza Contreras RN) 1025 (IV Started - Provider: Octavio Ghosh RN)1055 (Stopped - Provider: Octavio Ghosh RN) 0900 (Not Given - Provider: Charity Kaye RN - Reason: Loss of IV access - Comment: notified; medicince changed to oral) cephALEXin (KEFLEX) capsule 500 mg 500 mg, Oral, EVERY 12 HOURS SCHEDULED (2 times per day), 14 doses, First dose on Wed08/14/18 at 1245, Last dose on Wed08/20/18 at 2100 1221 (Given - Provider: Charity Kaye, ROLF) clopidogrel (PLAVIX) tablet 75 mg 75 mg, Oral, DAILY, First dose on Wed08/12/18 at 1900, Until Discontinued 2107 (Given - Provider: Diane Abarca RN) 101 (Given - Provider: Octavio Ghosh RN) 0919 (Given - Provider: Charity Kaye RN) ferrous sulfate tablet 325 mg 325 mg, Oral, 2 TIMES DAILY WITH MEALS, First dose on Wed08/12/18 at 1845, Until Discontinued, Take with food other than cereals, dietary fiber, tea, coffee, eggs, or milk. Provides 65 mg of elemental iron. Do not crush. 2108 (Given - Provider: Diane Abarca RN) 101 (Given - Provider: Octavio Ghosh RN)180 (Given - Provider: Octavio Ghosh RN) 0916 (Given - Provider: Charity Kaye, ROLF) gabapentin (NEURONTIN) capsule 200 mg 200 mg, Oral, 4 TIMES DAILY, First dose on Wed08/12/18 at 1845, Until Discontinued 1999 (Canceled Entry - Provider: Diane Abarca RN)2108 (Given - Provider: Diane Abarca RN) 1012 (Given - Provider: Octavio Ghosh RN)143 (Given - Provider: Octavio Ghosh RN)180 (Given - Provider: Octavio Ghosh RN)2016 (Given - Provider: Toshia Wood RN) 0916 (Given - Provider: Charity Kaye RN)1207 (Given - Provider: Charity Kaye RN) insulin aspart U-100 (NovoLOG) injection 1-10 Units 1-10 Units, Subcutaneous, 4 TIMES DAILY WITH MEALS, First dose on Wed08/12/18 at 1800, Until Discontinued, Medium dose algorithm: FSBS Correction [...] least 3 hours. Waste Sort Code = [facility] 2904 (Given - Provider: Dolores Olivares RN)2109 (Given - Provider: Diane Abarca RN) 0921 (Given - Provider: Octavio Ghosh RN)1430 (Given - Provider: Octavio Ghosh RN)1809 (Given - Provider: Octavio Ghosh RN)2203 (Given - Provider: Toshia Wood, ROLF - Comment: STEVE SMITH) 0800 (Not Given - Provider: Charity Kaye RN - Reason: Order parameters not met)1208 (Given - Provider: Charity Kaye RN) insulin glargine U-100 (LANTUS) injection 20 Units 20 Units, Subcutaneous, EVERY EVENING (INSULIN), First dose on Wed08/12/18 at 1900, Until Discontinued, Waste Sort Code = [facility] 2109 (Given - Provider: Diane Abarca RN) 2017 (Given - Provider: Toshia Wood, ORLF - Comment: verified with sha) lamoTRIgine (LaMICtal) tablet 100 mg(Linked Group 2) 100 mg, Oral, NIGHTLY, First dose on Wed08/12/18 at 2100, Until Discontinued 2107 (Given - Provider: Diane Abarca RN) 2047 (Given - Provider: Toshia Wood, ROLF) lamoTRIgine (LaMICtal) tablet 50 mg(Linked Group 2) 50 mg, Oral, DAILY, First dose on Wed08/12/18 at 1900, Until Discontinued 1999 (Not Given - Provider: Diane Abarca RN - Reason: Other) 1014 (Given - Provider: Octavio Ghosh RN) 914 (Given - Provider: Charity Kaye RN) melatonin tablet 5 mg 5 mg, Oral, NIGHTLY, First dose on Wed08/12/18 at 2100, Until Discontinued 2109 (Given - Provider: Diane Abarca RN) 2016 (Given - Provider: Toshia Wood, ROLF) miconazole (MICATIN) 2 % powder(Linked Group 3) Topical, 2 TIMES DAILY, 84 doses, First dose on Wed08/14/18 at 1200, Last dose on 09/24/18 at 2100, [facility] (Given - Provider: Charity Kaye, ROLF) oxybutynin (DITROPAN) tablet 5 mg 5 mg, Oral, 2 TIMES DAILY, First dose on Wed08/12/18 at 2100, Until Discontinued, Therapeutic Interchange for oxybutynin XL 10mg tab Daily 2110 (Given - Provider: Diane Abarca RN) 1013 (Given - Provider: Octavio Ghosh RN)2017 (Given - Provider: Toshia Wood, ROLF) 0916 (Given - Provider: Charity Kaye, ROLF) pantoprazole (PROTONIX) tablet 40 mg 40 mg, Oral, 2 TIMES DAILY, First dose (after last modification) on 08/13/18 at 0900, Until Discontinued, Do not crush or chew 1013 (Given - Provider: Octavio Ghosh, ROLF)2016 (Given - Provider: Toshia Wood, RLOF) 0915 (Given - Provider: Charity Kaye, ROLF) QUEtiapine (SEROquel) tablet 100 mg 100 mg, Oral, NIGHTLY, First dose on Wed08/12/18 at 2100, Until Discontinued 2107 (Given - Provider: Diane Abarca RN) 2017 (Given - Provider: Toshia Wood, ROLF) sertraline (ZOLOFT) tablet 200 mg 200 mg, Oral, DAILY, First dose on Wed08/12/18 at 1845, Until Discontinued 2109 (Given - Provider: Diane Abarca RN) 1014 (Given - Provider: Octavio Ghosh, ROLF) 0916 (Given - Provider: Charity Kaye, ROLF) sodium chloride 0.9 % 1,000 mL IV bolus (COMPLETED) Intravenous, ONCE, 1 dose, On Wed08/12/18 at 1100, at 983.6 mL/hr 1019 (IV Started - Provider: Eliza Contreras, ROLF)1221 (Stopped - Provider: Eliza Contreras RN) Continuous Medication Order 08/12/2018 08/13/2018 08/14/2018 0.9 % NaCl infusion (CANCELED) Intravenous, at 125 mL/hr, CONTINUOUS, Starting on Wed08/12/18 at 1645, Until 08/13/18 at 0844 1558 (New Bag - Provider: Dolores Olivares RN)2000 (Rate/Dose Verify - Provider: Diane Abarca RN)2214 (New Bag - Provider: Diane Abarca RN) 0930 (Rate/Dose Verify - Provider: Octavio Ghosh RN)1252 (Stopped - Provider: Octavio Ghosh RN) PRN Medication Order 08/12/2018 08/13/2018 08/14/2018 acetaminophen (TYLENOL) suppository 650 mg(Linked Group 4) 650 mg, Rectal, EVERY 4 HOURS PRN, Starting on Wed08/12/18 at 1511, Until 08/14/18 at 1839, Pain, Fever, Temp greater than 102 F, Maximum adult dose of acetaminophen is 4000 mg from all sources in 24 hours. 0230 (See Alternative - Provider: Diane Abarca RN) acetaminophen (TYLENOL) tablet 650 mg(Linked Group 4) 650 mg, Oral, EVERY 4 HOURS PRN, Starting on Wed08/12/18 at 1511, Until 08/14/18 at 1839, Pain, Fever, Temp greater than 102 F, Maximum adult dose of acetaminophen is 4000 mg from all sources in 24 hours. 0230 (Given - Provider: Diane Abarca RN) albuterol (PROVENTIL HFA; VENTOLIN HFA) INHALER 2 Puff(Linked Group 5) 2 Puff, Inhalation, PRN, Starting on Wed08/12/18 at 1945, Until Wed08/14/18 at 1839, Wheezing, Shortness of Breath, Waste Sort Code = SP 0818 (Given - Provider: Amairani Brunner, CICI) albuterol (PROVENTIL) nebulizer solution 2.5 mg(Linked Group 5) 2.5 mg, Nebulization, PRN, Starting on Wed08/12/18 at 1945, Until Wed08/14/18 at 1839, Wheezing, Shortness of Breath, Bronchospasm 0818 (See Alternative - Provider: Amairani Brunner, CICI) dextrose 50 % solution 25 mL 25 mL, Intravenous, PRN, Starting on Wed08/12/18 at 1510, Until Wed08/14/18 at 1839, Low blood sugar, If FSBS less than 70 mg/dl and patient cannot take orally, Check FSBS every 30 minutes and repeat 25 mL of D50 IV push and notify physician if FSBS less than 70 mg/dL VESICANT glucagon (human recombinant) (GLUCAGEN) injection 1 mg 1 mg, Intramuscular, PRN, Starting on Wed08/12/18 at 1510, Until Wed08/14/18 at 183, Low blood sugar, If FSBS less than 70 mg/dl, patient cannot take orally and without IV access, If patient is without IV access, give Glucagon 1 mg Intramuscularly, insert IV and call physician. miconazole (MICATIN) 2 % powder(Linked Group 3) Topical, PRN, Starting on Wed08/14/18 at 1026, Until Wed08/14/18 at 183, Wound Care, Application site: [place] nitroGLYCERIN (NITROSTAT) SL tablet 0.4 mg 0.4 mg, Sublingual, EVERY 5 MIN PRN, Starting on Wed08/12/18 at 1511, Until Wed08/14/18 at 183, Chest pain, May give up to three (3) doses. Call MD after 3rd dose Administer for angina/chest pain prior to administration of analgesics for angina. sodium chloride 0.9% IV line flush 50 mL (CANCELED) 50 mL, Intravenous, at 150-600 mL/hr, PRN, Starting on Wed08/12/18 at 0733, Until Wed08/12/18 at 1510, Line Care, Flush with 50 mL after IVPB to insure complete administration of the dose. May use the saline infusion to back flush IVPB tubing as needed., Use this order to document priming and flushing IV line after medication administration. 0936 (IV Started - Provider: Eliza Contreras, ROLF)1027 (Stopped - Provider: Eliza Contreras RN) Linked Groups Order Group 1: 0.9 % NaCl IV bolus 1,000 mL (COMPLETED)Jump to med 1,000 mL, Intravenous, ONCE, 1 dose, On Wed08/12/18 at 0745, Administer over 2 Hours, Bag 1 of 2 - IV crystalloid 30 mL/kg based on [place] body weight: 57 kg (125 lb 10.6 oz) for BMI greater than 30 Followed by 0.9 % NaCl IV bolus 1,000 mL (COMPLETED)Jump to med 1,000 mL, Intravenous, ONCE, 1 dose, On Wed08/12/18 at 0945, Administer over 2 Hours, Bag 2 of 2 - IV crystalloid 30 mL/kg based on [place] body weight: 57 kg (125 lb 10.6 oz) for BMI greater than 30 Group 2: lamoTRIgine (LaMICtal) tablet 50 mgJump to med 50 mg, Oral, DAILY, First dose on Wed08/12/18 at 1900, Until Discontinued And lamoTRIgine (LaMICtal) tablet 100 mgJump to med 100 mg, Oral, NIGHTLY, First dose on Wed08/12/18 at 2100, Until Discontinued Group 3: miconazole (MICATIN) 2 % powderJump to med Topical, 2 TIMES DAILY, 84 doses, First dose on 08/14/18 at 1200, Last dose on Wed09/24/18 at 2100, Application site: [place] And miconazole (MICATIN) 2 % powderJump to med Topical, PRN, Starting on Wed08/14/18 at 1026, Until Wed08/14/18 at 1839, Wound Care, Application site: Groin Group 4: acetaminophen (TYLENOL) tablet 650 mgJump to med 650 mg, Oral, EVERY 4 HOURS PRN, Starting on Wed08/12/18 at 1511, Until Wed08/14/18 at 1839, Pain, Fever, Temp greater than 102 F, Maximum adult dose of acetaminophen is 4000 mg from all sources in 24 hours. Or acetaminophen (TYLENOL) suppository 650 mgJump to med 650 mg, Rectal, EVERY 4 HOURS PRN, Starting on Wed08/12/18 at 1511, Until Wed08/14/18 at 1839, Pain, Fever, Temp greater than 102 F, Maximum adult dose of acetaminophen is 4000 mg from all sources in 24 hours. Or acetaminophen (OFIRMEV) infusion 1,000 mg (CANCELED) 1,000 mg, Intravenous, EVERY 6 HOURS PRN, Starting on Wed08/12/18 at 1511, Until Wed08/12/18 at 1520, Pain, Fever, Temp greater than 102 F, Administer over 15 Minutes, Maximum adult dose of acetaminophen is 4000 mg from all sources in 24 hours. Group 5: albuterol (PROVENTIL HFA; VENTOLIN HFA) INHALER 2 PuffJump to med 2 Puff, Inhalation, PRN, Starting on Wed08/12/18 at 1945, Until Wed08/14/18 at 1839, Wheezing, Shortness of Breath, Waste Sort Code = SP Or albuterol (PROVENTIL) nebulizer solution 2.5 mgJump to med 2.5 mg, Nebulization, PRN, Starting on Wed08/12/18 at 1945, Until Wed08/14/18 at 1839, Wheezing, Shortness of Breath, Bronchospasm documented in this encounter Orders Medications Ordered That Gaurav ht Not Have Been Administered Count Last Ordered Date First Ordered Date miconazole (MICATIN) 2 % powder 1 9 0.9 % NaCl infusion 1 08/12/2018 acetaminophen (OFIRMEV) infusion 1,000 mg 2 08/12/2018 acetaminophen (TYLENOL) suppository 650 mg 2 08/12/2018 acetaminophen (TYLENOL) tablet 1,000 mg 1 0 08/12/2018 acetaminophen (TYLENOL) tablet 650 mg 1 09/2018 albuterol (PROVENTIL HFA; VE NTOLIN HFA) INHALER 2 Puff 1 08/12/2018 albuterol (PROVENTIL) nebuli zer solution 2.5 mg 1 08/12/2018 dextrose 50 % solution 25 mL 3 08/12/2018 glucagon (human recombinant) (GLUCAGEN) injection 1 mg 3 08/12/2018 ICU Electrolyte Replacement - Calcium 1 09/2018 ICU Electrolyte Replacement - Magnesium 1 0 08/12/2018 ICU Electrolyte Replacement - Phosphate 1 0 08/12/2018 ICU Electrolyte Replacement - Potassium 1 0 08/12/2018 insulin aspart U-100 (NovoLO G) injection 1-10 Units 1 08/12/2018 insulin glargine U-100 (LANT US) injection 43 Units 1 08/12/2018 lamoTRIgine (LaMICtal) tablet 50 mg 2 08/12 Melatonin Tab 4.5 mg 1 08/12/2018 nitroGLYCERIN (NITROSTAT) SL tablet 0.4 mg 1 08/12/2018 pantoprazole (PROTONIX) 40 m g in sodium chloride 10 mL injection 1 08/12/2018 pantoprazole (PROTONIX) tablet 40 mg 2 09/2018 sodium chloride 0.9% syringe 5-10 mL 1 09/2018 Nursing Count Last Ordered Date First Orde red Date ADMISSION 1 08/12/2018 ED ENTER ADMISSION ORDER 1 08/12/2018 Consult Count Last Ordered Date First Orde red Date IP CONSULT TO NEPHROLOGY 1 08/12/2018 PT Count Last Ordered Date First Orde red Date IP CONSULT TO PHYSICAL THERAPY 1 08/13/2018 Transfer Count Last Ordered Date First Orde red Date BED REQUEST 1 08/12/2018 Discharge Count Last Ordered Date First Orde red Date DISCHARGE PATIENT 1 08/14/2018 documented in this encounter Additional Health Concerns Assessment Noted Time PHQ-9 Depression Total Score: 2 07/27/19 19 9:40 AM EDT A fall risk assessment has been complete d for the patient 05/17/2018 8:17 AM EDT PHQ-2 Depression Total Score: 2 07/27/19 19 9:40 AM EDT documented as of this encounter Care Teams Corn Grinder Relationship Specialty Start Date End Date Sharee Segovia APRN [address] [place], [place] [address] PCP - General Nurse Practitioner-Family 09/21/16 documented as of this encounter
--- OUTSIDE RECORDS SUMMARY | 2024-02-16 14:50 | XMS_ITS | Encounter Summary ---
Author Organization [place] [address] Care Team Providers Care Training Lead Name Role Phone Sharee Segovia APRN Primary Care Provider [phone] Reason for Visit * Reason Onset Date Comments Care Management - Chart Review 08/15/2018 Encounter Details Date Type Department Care Team (Late st Contact Info) Description 08/15/2018 Patient Outreach SEP Quality Transformation [address] [place] [address] Charity Last RN Care Management - Chart Review Social [...] documented in this encounter Progress Notes * Charity Last RN - 08/15/2018 3:11 PM EDT Chart reviewed for transitional care management. Pt resides at [facility] which is assisted living [facility]. Pt has daily nursing supervision. CTT will not follow. Pt completed hospital follow up today. documented in this encounter Miscellaneous Notes * Telephone Encounter - Katheryn Allen RN - 08/16/2018 8:37 AM EDT Noted. [facility]/RN has talked to the patient & [facility] in the past. They have the offices contact number & the Office CC/RN contact number as well. Office CC/RN will not follow the patient now, but can in the future if the need arises. documented in this encounter Plan of Treatment Not on file documented as of this encounter Goals Goal Patient Goal Type Associated Problems Recent Progress Patient-Stated? Author Blood Pressure < 140/90 Blood Pressure 124/52(2018 4:00 PM EDT) No [place], Silva S, RMA BMI (Calculated) < 30 General 35.6(10/06/19 19 4:56 PM EDT) No Silva Mathew RMA Maintain a healthy diet, exercise regularly and maintain an ideal body weight General No Silva Mathew, RMA HEMOGLOBIN A1C < 7.0 Result Component [...] documented as of this encounter Care Teams Training Lead Relationship Specialty Start Date End Date Sharee Segovia APRN [address] [place] [id number] PCP - General Nurse Practitioner-Family 09/21/16 documented as of this encounter
--- OUTSIDE RECORDS SUMMARY | 2024-02-16 14:50 | XMS_ITS | Encounter Summary ---
Author Organization [place] [address] Care Team Providers Care Soloist Dancer Name Role Phone Sharee Segovia APRN Primary Care Provider [phone] Reason for Visit * Reason Onset Date Comments Other 07/28/2018 medication revif ication and adjustment Encounter Details Date Type Department Care Team (Late st Contact Info) Description 07/28/2018 Telephone [facility] [place] [facility] [address] [place] [address] Becca Sykes APRN [address] [facility] [address] [place], [place] [id number] Other (medication revification and adjustment) Social History Tobacco Use Types Packs/Day Years [...] encounter Miscellaneous Notes * Telephone Encounter - Kinga Warren RMA - 08/26/2018 9:14 AM EDT Several attempts to obtain medication list with no response from nurse. Closing. * Telephone Encounter - Kinga Warren RMA - 08/03/2018 2:41 PM EDT Left message for them to refax never received. * Telephone Encounter - Kinga Warren RMA - 07/28/2018 2:38 PM EDT Rafia called back she has already called their pharmacy and d/c plavix she will fax med list to us. * Telephone Encounter - Kinga Warren RMA - 07/28/2018 2:26 PM EDT Spoke with Aaliyah at [facility] and asked that a nurse call me regarding this patient and her medications. Patient was not sure of what meds she is currently on and didn't bring a list or bottles. Also need to make them aware that we are stopping her plavix due to frequent falls. Rafia to call me back. documented in this encounter Plan of Treatment [...] documented as of this encounter Care Teams Soloist Dancer Relationship Specialty Start Date End Date Sharee Segovia APRN [address] [place], [place] [phone] PCP - General Nurse Practitioner-Family 09/21/16 documented as of this encounter
--- OUTSIDE RECORDS SUMMARY | 2024-02-16 14:50 | XMS_ITS | Encounter Summary ---
Author Organization [place] [address] Care Team Providers Care Salesperson [employer] Name Role Phone Sharee Segovia APRN Primary Care Provider [phone] Reason for Visit * Reason Comments Hospital Follow Up Pt sts that she was having chest pains was in the hospital for a day , sts that they were not sure what was the cause . Pt sts that she is feeling better but is aggervated that they don't know what caused the pain. Encounter Details Date Type Department Care Team (Late st Contact Info) Description 07/26/2018 9:00 AM EDT Office Visit [facility] [place] [address] [place] [address] Sharee Segovia APRN [address] [email or web address] [address] Annual physical exam (Primary Dx); Other forms of angina pectoris; 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); History of CVA with residual deficit; Hemiparesis affecting left side as late effect of stroke (HCC); Essential hypertension Social History Tobacco Use Types Packs/Day Years [...] Sign Reading Time Taken Comments Blood Pressure 110/80 07/26/2018 9:08 AM EDT Pulse 59 07/26/2018 9:08 AM EDT Temperature 36.4 ??C (97.5 ??F) 07/26/2018 9:08 AM ED T Respiratory Rate 20 07/26/2018 9:08 AM EDT Oxygen Saturation 95% 07/26/2018 9:08 AM EDT Inhaled Oxygen Concentration - - Weight 98 kg (216 lb) 07/26/2018 9:08 AM EDT Height 172.7 cm (5' 8 ) 07/26/2018 9:08 AM EDT Body Mass Index 32.84 07/26/2018 9:08 AM EDT documented in this encounter Functional [...] documented in this encounter Progress Notes * Sharee Segovia ARNP - 07/26/2018 9:00 AM EDT Assessment Diagnoses and all orders for this visit: Annual physical exam Comments: recently completed mammogram. will consider shingles vaccine. Other forms of angina pectoris (HCC) (Chronic) Comments: no chest pain since discharge some mod CAD, stress could aggravate Overview: Added automatically from request for surgery [id number] 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) (Chronic) Comments: to increase insulin to 36 units History of CVA with residual deficit Comments: continue with PT for balance and strengthening Hemiparesis affecting left side as late effect of stroke (HCC) (Chronic) Comments: continue with PT for balance and strengthening Essential hypertension Comments: stable Progress Note: Vitals: 07/26/18 0908 BP: 110/80 Pulse: 59 Resp: 20 Temp: 97.5 ??F (36.4 ??C) TempSrc: Temporal SpO2: 95% Weight: 216 lb (98 kg) Height: 5' 8 (1.727 m) Chief Complaint Patient presents with ??? Hospital Follow Up Pt sts that she was having chest pains was in the hospital for a day , sts that they were not sure what was the cause . Pt sts that she is feeling better but is aggervated that they don't know what caused the pain. HPI: Hospital Follow-Up: Hospital/ER Follow-Up: Ms. Palm is a 68 y.o. female here for hospital follow up. She was admitted 07/19/2018 and discharged 07/20/2018 with a diagnosis of chest pain . Also here to do annual wellness exam. Her troponinswere negative while hospitalized and a stress test was negative. She is anxious about what caused the pain. We had a long discussion about what could have caused her pain. She has been stressed due to several anniversaries of loved ones . She does have physical therapy coming to her home to assist with balance strengthening. She is prone to recent falls. She is compliant with discharge medications / treatment. She is having medication side effects. Review of Systems Constitutional: Negative. HENT: Negative for congestion. Eyes: Negative. Respiratory: Positive for chest tightness and shortness of breath. Negative for cough. Cardiovascular: Positive for chest pain. Negative for palpitations. Endocrine: Negative. Neurological: Negative. Psychiatric/Behavioral: Positive for agitation and sleep disturbance. The patient is nervous/anxious. Physical Exam NAD PERRL, ANICTERIS EOMI CTA B RR no murmur No C/C/E ABDOMEN SOFT WITH POS BS, NONTENDER Non focal neuro exam GAIT STEADY with walker, POSTURE SEMI-ERECT Patient Active Problem List Diagnosis ??? History of CVA with residual deficit ??? Essential hypertension ??? Gastrointestinal hemorrhage associated with gastroduodenitis ??? Hemiparesis affecting left side as late effect of stroke ([facility]) ??? ELIU (iron deficiency anemia) ??? Chest pain at rest ??? ASHD (arteriosclerotic heart disease) ??? Chronic diastolic CHF (congestive heart failure) ([facility]) ??? S/P ablation of atrial flutter ??? Well controlled type 2 diabetes mellitus with peripheral neuropathy ([facility]) ??? Mood disorder ([facility]) ??? Recurrent major depressive disorder, in partial remission ([facility]) ??? Schizoaffective disorder, depressive type ([facility]) ??? Intellectual disability ??? Positive occult stool blood test ??? Old CT (myocardial infarction) ??? Osteopenia of multiple sites ??? Severe obesity (BMI 35.0-35.9 with comorbidity) ([facility]) Past Medical History: Diagnosis Date ??? Atrial flutter ([facility]) EPS, AFL Ablation on 12/31/[address] Tee ??? CHF (congestive heart failure) ([facility]) ??? COPD (chronic obstructive pulmonary disease) (HCC) ??? DDD (degenerative disc disease) ??? Diabetes mellitus ([facility]) ??? Hypertension ??? Intellectual disability 05/03/2017 ??? CT (myocardial infarction) ([facility]) ??? RLS (restless legs syndrome) ??? Schizoaffective disorder, depressive type ([facility]) 02/19/2017 ??? Stroke ([facility]) 2010 left side affected ??? Suicide attempt ([facility]) ??? Urinary incontinence ??? Yeast [...] AND BRUSHING; Surgeon: Be Brown MD; Location: [facility]; Service: Endoscopy Social History Socioeconomic History ??? Marital status: [...] file Gets together: Not on file Attends caodaism service: Not on file Active member of [...] on file Social History Narrative Lives at [facility] Has two children and two grandchildren. Is Family History Problem Relation Age of Onset ??? Cancer Mother larnyx cancer ??? Colon Cancer Mother ??? Heart Disease Sister ??? No Known Problems Son ??? Seizures Daughter Allergies Allergen Reactions ??? Compazine [Prochlorperazine Edisylate] ??? [place] ??? Pentazocine Hcl ??? Prochlorperazine Maleate ??? [place] [Pentazocine Lactate] Outpatient Encounter Medications as of 07/26/2018 Medication Sig Dispense Refill ??? acetaminophen 325 [...] BY MOUTH NIGHTLY 30 Tab 1 ??? BASAGLAR KWIKPEN U-100 INSULIN 100 unit/mL (3 [...] Tablet Take 1 Tab by mouth daily. 90 Each 1 ??? ferrous sulfate 325 mg (65 mg iron) Oral Tablet Take 1 Tab by mouth 2 times daily (with meals).60 Tab 5 ??? fUROsemide (LASIX) 20 mg Oral Tablet Take 20 mg by mouth daily. ??? gabapentin (NEURONTIN) 100 mg Oral Capsule [...] mg by mouth daily (with breakfast). ??? miconazole (MICOTIN) 2 % Top Cream [...] Tabs by mouth nightly. 90 Tab 2 No facility-administered encounter medications on file as of 07/26/2018. See time date stamps in the EMR for other pertinent history components reviewed as part of today's encounter. Medicare Wellness Assessment Flowsheet Version: Ms. Palm is a 68 y.o. female here for an Subsequent Annual Medicare Wellness Assessment. Below are the results from wellness category assessments administered throughout the year compiled for review as part of today's assessment. Fall Risk Assessment Has the patient had any fall with injury in the past year?: (!) Yes Has the patient had 2 or more falls in the past year?: (!) Yes Is the patient able to sit without assistance?: Yes Is the patient able to get up without assistance?: (!) No Does the patient have a difficult time ambulating when first getting up?: (!) Yes Does the patient have rugs or runners in the home?: No Does the patient have grab bars in the bathroom?: Yes Does the patient have handrails for all inside or outside stairs?: Yes (In office Assessment Only): Is the patient able to ambulate without assistance/device and with a gait steady?: (!) No (In office Assessment Only): Is the patient able to get out of the exam chair and ambulate steadilyin less than 30 second?: (!) No She is currently getting physical therapy to help with balance and physical improvement and strengthening. Functional Status Assessment Functional Level: (!) partial assistance Functional Mobility Assessment: (!) mobile with cane/walker Assessment of transportation needs: (!) dependent on other/public transportation Functional Activities of Daily Living Limitations: (!) ambulation;bathing/hygiene;preparing meals;managing money She has atypical walker but would like to transition to a rolling walker. I advised Faby to check with physical therapy if they felt that was a good device for her Activities of Daily Living Assistive Device Assessment Assistive Devices: Toilet riser;Walker Home O2 Device: Room Air Osteoporosis Screening Assessment Has the patient had a DEXA scan in the past 2 years?: (!) No Abnormal Pains Assessment Excluding what you would consider normal aches and pains for your age and medical condition, do youhave any unusual or worrisome pains?: No PHQ Depression Screening Results Little interest or pleasure in doing things: 1 Feeling down, depressed, or hopeless: 1 PHQ-2 Total Score: 2 Trouble falling or staying asleep, or sleeping too much: 2 Feeling tired or having little energy: 2 Poor appetite or overeatin Feeling bad about yourself - or that you are a failure or have let yourself or your family down: 2 Trouble concentrating on things, such as reading the newspaper or watching television: 0 Moving or speaking so slowly that other people could have noticed. Or the opposite - being so fidgety or restless that you have been moving around a lot more than usual: 0 Thoughts that you would be better off , or of hurting yourself in some way: 1 PHQ-9 Total Score: 2 If you checked off any problems, how difficult have these problems made it for you to do your work,take care of things at home, or get along with other people?: Somewhat difficult Advanced Directive Evaluation Does the patient have an Advance Directive?: (!) No Advance Care Planning Guide Given?: Yes Care planning advanced directive form given to patient for review (For Dementia Screening below can use either AD-8 or Mini Cog. Doesn't require both.) AD-8 Dementia Screening tool results Problems with judgement: 0 Less interest in hobbies/activities: 0 Repeats the same things over and over: (!) 1 Trouble learning how to use a tool, appliance or gadget: 0 Forgets correct month or year: 0 Trouble handling complicated financial affairs: (!) 1 Trouble remembering appointments: 0 Daily problems with thinking and/or memory: 0 Total AD8 score:: (!) 2 Mini Cog Dementia Screening tool results Number of words immediately repeated back correctly.: 2 Clock Test: Please draw a clock face and draw in hands to show 10 minutes past eleven o'clock.: correct number placement, 1 pt Number of Words Recalled: 2 Dementia: Negative No exam data present No results found for this visit on 07/26/18. Patient Active Problem List Diagnosis ??? History of CVA with residual deficit ??? Essential hypertension ??? Gastrointestinal hemorrhage associated with gastroduodenitis ??? Hemiparesis affecting left side as late effect of stroke (HCC) ??? ELIU (iron deficiency anemia) ??? Chest pain at rest ??? ASHD (arteriosclerotic heart disease) ??? Chronic diastolic CHF (congestive heart failure) (HCC) ??? S/P ablation of atrial flutter ??? 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 Mood disorder (HCC) ??? Recurrent major depressive disorder, in partial remission (HCC) ??? Schizoaffective disorder, depressive type (HCC) ??? Intellectual disability ??? Positive occult stool blood test ??? Old CT (myocardial infarction) ??? Osteopenia of multiple sites ??? Severe obesity (BMI 35.0-35.9 with comorbidity) (HCC) Past Medical History: Diagnosis Date ??? Atrial flutter (HCC) EPS, AFL Ablation on 12/31/[address] Tee ??? CHF (congestive heart failure) (HCC) ??? COPD (chronic obstructive pulmonary disease) (HCC) ??? DDD (degenerative disc disease) ??? Diabetes mellitus (HCC) ??? Hypertension ??? Intellectual disability 05/03/2017 ??? CT (myocardial infarction) (HCC) ??? RLS (restless legs syndrome) ??? Schizoaffective disorder, depressive type (HCC) 02/19/2017 ??? Stroke (HCC) 2010 left side affected ??? Suicide attempt (HCC) ??? Urinary incontinence ??? Yeast infection recurrent Past Surgical History: Procedure Laterality Date ??? ABLATION OF DYSRHYTHMIC FOCUS 12/31/2015 atrial flutter ablation by Dr. eTe ??? ANKLE SURGERY ??? BREAST SURGERY reduction ??? JOINT REPLACEMENT left total knee replacement 1999 ??? KNEE SURGERY Left 12/06/2008 ??? LUNG SURGERY partial removal ??? ORTHOPEDIC SURGERY ??? TONSILLECTOMY ??? UPPER GASTROINTESTINAL ENDOSCOPY N/A 04/03/2015 ESOPHAGOGASTRODUODENOSCOPY WITH BIOPSY AND BRUSHING; Surgeon: Be Brown MD; Location: [facility]; Service: Endoscopy Allergies Allergen Reactions ??? Compazine [Prochlorperazine Edisylate] ??? [place] ??? Pentazocine Hcl ??? Prochlorperazine Maleate ??? [place] [Pentazocine Lactate] Current Outpatient Medications on File Prior to [...] BY MOUTH NIGHTLY 30 Tab 1 ??? BASAGLAR [place]PEN U-100 INSULIN 100 unit/mL (3 mL) SubQ [...] Tablet Take 1 Tab by mouth daily. 90 Each 1 ??? ferrous sulfate 325 mg (65 mg iron) Oral Tablet Take 1 Tab by mouth 2 times daily (with meals).60 Tab 5 ??? fUROsemide (LASIX) 20 mg Oral Tablet Take 20 mg by mouth daily. ??? gabapentin (NEURONTIN) 100 mg Oral Capsule [...] mg by mouth daily (with breakfast). ??? miconazole (MICOTIN) 2 % Top Cream [...] Tabs by mouth nightly. 90 Tab 2 No current facility-administered medications on file prior to visit. Social History Socioeconomic History ??? Marital status: [...] file Gets together: Not on file Attends caodaism service: Not on file Active member of [...] on file Social History Narrative Lives at [facility] Has two children and two grandchildren. Is Family History Problem Relation Age of Onset ??? Cancer Mother larnyx cancer ??? Colon Cancer Mother ??? Heart Disease Sister ??? No Known Problems Son ??? Seizures Daughter Immunization History Administered Date(s) Administered ??? Influenza Patient Reported 01/05/2018 ??? Influenza Vaccine Quadrivalent PF 12/27/2015 ??? Pneumococcal Conjugate Vaccine 13 Valent 12/26/2015 ??? Pneumococcal Polysaccharide 23 Valent 07/26/2017 Health Maintenance Topic Date Due ??? Hepatitis B Vaccine (1 of 3 - Risk 3-dose series) 07/13/1970 ??? Zoster (1 of 2) 07/13/2001 ??? Annual Wellness Exam 09/21/2017 ??? Colon Cancer Screening: FIT 08/11/2018 ??? Hemoglobin A1c 10/17/2018 ??? Lipids 04/19/2019 ??? Microalbuminuria 05/18/2019 ??? Fall Risk Assessment 07/27/2019 ??? Diabetic Eye Exam 04/19/2020 ??? Breast Cancer Screening 07/25/2020 ??? Influenza Vaccine Completed ??? Bone Density Screening Completed ??? Hepatitis C Screening Completed ??? Pneumococcal Vaccine 65+ Completed Health Maintenance Due Topic Date Due ??? Hepatitis B Vaccine (1 of 3 - Risk 3-dose series) 07/13/1970 ??? Zoster (1 of 2) 07/13/2001 ??? Annual Wellness Exam 09/21/2017 Patient Care Team: Sharee Segovia ARNP as PCP - General (Nurse Practitioner-Family) === Other chronic disease management or a new acute condition was addressed today as a separate identifiable service today and the HPI of those conditions may be noted in the body of this note just below this statement with associated pertinent ROS/EXAM/A&P incorporated into the documentation within the appropriate sections of the note. Separate service billing not applicable if the patient is in for Initial Medicare wellness Assessment or as a new patient to the practice. === Additional issues addressed today: Diabetes: staff at home has not increased insulin. Pt states sugars are still in the 200's [facility] Documentation Medication Compliance: Compliant most of the time Understanding of Current Medications: Fair Medication Compliance Barriers: None or N/A Self-Management Tools: N/A, no chronic conditions Self-Management Ability: Fair Willingness to Adopt Healthy Behaviors: Fair Potential Barriers to completing treatment plans today: No significant barriers [facility] Flowsheet was completed/reviewed as part of today's visit. Educated patient regarding the diagnosis, medication/treatment, goals, self- management tools and instructions based on their care plan. They verbalized understanding of the education given on the After Visit Summary [AVS] for today's visit. A copy of the AVS was provided either in writing and/or via [employer]. A new medicine was prescribed during this office visit. I did discuss the reason for prescribing this new medication. I also informed of possible likely side effects, but also encouraged them to readthe medication insert that will accompany their prescription and encouraged them to discuss any questions about the insert with their pharmacist. I instructed them to call if having side effects or possible allergic reaction after taking. I also discussed the risk of stopping the medication or deviating from prescribing instructions. Dosing instructions are present on the AVS and they are aware. I inquired of any questions and answered accordingly. documented in this encounter Miscellaneous Notes * Patient Instructions - Sharee Segovia ARNP - 07/26/2018 9:00 AM EDT Increase Insulin to 36 units at night. documented in this encounter Plan of Treatment [...] as of this encounter Visit Diagnoses Diagnosis Annual physical exam- Primary Routine general medical examination at a health care facility Other forms of angina pectoris (HCC) 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) Type II or unspecified type diabetes mellitus with neurological manifestations, not stated as uncontrolled History of CVA with residual deficit Hemiparesis affecting left side as late effect of stroke (HCC) Hemiplegia affecting unspecified side, late effect of cerebrovascular disease Essential hypertension Unspecified essential hypertension documented in this encounter Additional Health Concerns Assessment Noted Time PHQ-9 Depression Total Score: 2 07/27/19 9:40 AM EDT A fall risk assessment has been complete d for the patient 05/17/2018 8:17 AM EDT PHQ-2 Depression Total Score: 2 07/27/19 9:40 AM EDT documented as of this encounter Care Teams Salesperson [employer] Relationship Specialty Start Date End Date Sharee Segovia APRN [address] [place] [id number] PCP - General Nurse Practitioner-Family 09/21/16 documented as of this encounter
--- OUTSIDE RECORDS SUMMARY | 2024-02-16 14:50 | XMS_ITS | Encounter Summary ---
Author Organization [place] [address] Care Team Providers Care Title Investigator Name Role Phone Sharee Segovia APRN Primary Care Provider [phone] Reason for Referral * Consultation (Routine) - Closed Specialty Diagnoses / Procedures Referred By Arsh patel Referred To Contact Psychologist-Cognitive & Behavioral Diagnoses Diabetes mellitus type 2 in obese Falls, initial encounter History of CVA with residual deficit Sharee Segovia APRN [address] [place] [address] Phone: tel: fax: Referral ID Status Reason Start Date Expiration Date Visits Re quested Visits Authorized [id number] Closed 09/07/2018 09/07/2019 99 99 Question Answer Service Requested Community assistance, Housing Comments Pt wants to explore other assisted living options such as [facility]. She would like like to move to [place] closer to her family. Having frequent falling * Consultation (Routine) - Closed Specialty Diagnoses / Procedures Referred By Arsh patel Referred To Contact Gynecology Diagnoses Urinary incontinence, unspecified type Sharee Segovia APRN [address] [place] [address] Phone: tel: fax: Inge Henderson MD Referral ID Status Reason Start Date Expiration Date Visits Re quested Visits Authorized [id number] Closed 09/07/2018 09/07/2019 99 99 * Genetic Lab Test (Routine) - Closed Specialty Diagnoses / Procedures Referred By Arsh patel Referred To Contact Diagnoses Screening for malignant neoplasm of the rectum Special screening for malignant neoplasms, colon Procedures COLOGUARD Sharee Segovia, NIKO [address] [place] [address] Phone: tel: fax: Referral ID Status Reason Start Date Expiration Date Visits Re quested Visits Authorized [id number] Closed 09/07/2018 09/07/2019 1 1 Reason for Visit * Reason Comments Kidney Problem 1 month follow up Encounter Details Date Type Department Care Team (Late st Contact Info) Description 09/07/2018 2:20 PM EDT Office Visit [facility] [place] [address] [place], [place] [id number] Sharee Segovia, BUSINESS ECONOMIST [address] [place] [id number] Essential hypertension (Primary Dx); Special screening for malignant neoplasms, colon; Screening for malignant neoplasm of the rectum; Diabetes mellitus type 2 in obese (HCC) (HCC); Urinary incontinence, unspecified type; Falls, initial encounter; History of CVA with residual deficit; Other iron deficiency anemia; Need for vaccination; Annual physical exam Social History Tobacco Use Types Packs/Day Years [...] Sign Reading Time Taken Comments Blood Pressure 122/76 09/07/2018 2:07 PM EDT Pulse 84 09/07/2018 2:07 PM EDT Temperature 36.9 ??C (98.5 ??F) 09/07/2018 2:07 PM ED T Respiratory Rate 16 09/07/2018 2:07 PM EDT Oxygen Saturation 97% 09/07/2018 2:07 PM EDT Inhaled Oxygen Concentration - - Weight 106.5 kg (234 lb 12.8 oz) 09/07/2018 2:07 PM EDT Height 165.1 cm (5' 5 ) 09/07/2018 2:07 PM EDT Body Mass Index 39.07 09/07/2018 2:07 PM EDT documented in this encounter Functional [...] Refills Last Filled Start Date End Date Calcium Carbonate-Vitamin D3 (CALCIUM 600 + D,3,) 600 mg calcium- 200 unit Oral Capsule Take 1 Tab by mouth every 12 hours. 9 Insulin glargine (BASAGLAR KWIKPEN U-100 INSULIN) 100 unit/mL (3 mL) SubQ Insulin PenIndications:Diab etes mellitus type 2 in obese,Falls, initial encounter,History of CVA with residual deficit Subcutaneous (Inject under the skin) 24 Units every evening. 3 mL 6 9 09/10/19 19 varicella-zoster gE-AS01B, PF, (SHINGRIX, PF,) 50 mcg/0.5 mL IM Suspension for Reconstitution Inject 0.5 mL into the muscle once for 1 dose. Inject 0.5ml intramuscularly and repeat with one dose 2 to 6 months later 1 Each 1 9 09/08/19 19 documented in this encounter Progress Notes * Sharee Segovia ARNP - 09/07/2018 2:20 PM EDT Assessment Diagnoses and all orders for this visit: Essential hypertension Comments: Stable Orders: - COMPREHENSIVE METABOLIC PANEL; Future Special screening for malignant neoplasms, colon Comments: She refuses colonoscopy but will complete a Cologuard 1 fit test was positive for blood but she does admit to hemorrhoids Orders: - COLOGUARD; Future Screening for malignant neoplasm of the rectum - COLOGUARD; Future Diabetes mellitus type 2 in obese (HCC) (Chronic) Comments: Increase insulin from 20 units to 24 units and follow-up in a month Overview: Lab Results Component Value Date HGBA1C 6.6 (H) 04/19/2018 HGBA1C 6.6 08/09/2017 HGBA1C 6.8 05/02/2017 Metformin stopped due to acute renal injury. Previously on lantus 36u, had hypoglycemia so decreased to 20u/nightly. Will continue same to allow for renal recovery and follow-up 2 weeks Orders: - COMPREHENSIVE METABOLIC PANEL; Future - AMB REFERRAL TO SOCIAL WORK - Insulin glargine (BASAGLAR KWIKPEN U-100 INSULIN) 100 unit/mL (3 mL) SubQ Insulin Pen; Subcutaneous (Inject under the skin) 24 Units every evening. Dispense: 3 mL; Refill: 6 Urinary incontinence, unspecified type Comments: Refer to urogynecology sounds like mixed incontinence of stress and urge Orders: - AMB REFERRAL TO UROGYNECOLOGY [place], initial encounter Comments: Will refer to social work faculty member to see if eligible for [facility] and available placement Frequent falls Orders: - AMB REFERRAL TO SOCIAL WORK - Insulin glargine (BASAGLAR KWIKPEN U-100 INSULIN) 100 unit/mL (3 mL) SubQ Insulin Pen; Subcutaneous (Inject under the skin) 24 Units every evening. Dispense: 3 mL; Refill: 6 History of CVA with residual deficit - AMB REFERRAL TO SOCIAL WORK - Insulin glargine (BASAGLAR KWIKPEN U-100 INSULIN) 100 unit/mL (3 mL) SubQ Insulin Pen; Subcutaneous (Inject under the skin) 24 Units every evening. Dispense: 3 mL; Refill: 6 Other iron deficiency anemia - CBC WITH DIFF; Future Need for vaccination Annual physical exam Other orders - varicella-zoster gE-AS01B, PF, (SHINGRIX, PF,) 50 mcg/0.5 mL IM Suspension for Reconstitution; Inject 0.5 mL into the muscle once for 1 dose. Inject 0.5ml intramuscularly and repeat with one dose 2to 6 months later Dispense: 1 Each; Refill: 1 - Calcium Carbonate-Vitamin D3 (CALCIUM 600 + D,3,) 600 mg calcium- 200 unit Oral Capsule; Take 1 Tab by mouth every 12 hours. Progress Note: Vitals: 09/07/18 1407 BP: 122/76 BP Location: Left arm Patient Position: Sitting Pulse: 84 Resp: 16 Temp: 98.5 ??F (36.9 ??C) TempSrc: Temporal SpO2: 97% Weight: 234 lb 12.8 oz (106.5 kg) Height: 5' 5 (1.651 m) SUBJECTIVE: Chief Complaint Patient presents with ??? Kidney Problem 1 month follow up HPI: Patient here for follow-up. She was seen a month ago after being hospitalized for acute kidney failure and chronic heart failure. She is no longer taking her Lasix. We will draw a repeat blood work. She stabilized at discharge. She has had mild edema of her lower legs. She does not elevate her legs, admits to high salt intake, does not wear support hose Her insulin had been decreased due to hypoglycemia. She states her blood sugars have been at least 1 80-220. She was taken from 36 units to 20 units a day. Medicare Wellness Assessment Flowsheet Version: Ms. Palm [...] steadilyin less than 30 second?: (!) No Frequent falls, recently completed 4 weeks of PT. Functional Status Assessment Functional Level: (!) partial assistance Functional Mobility Assessment: (!) mobile with cane/walker Assessment of transportation needs: (!) dependent on other/public transportation Functional Activities of Daily Living Limitations: (!) ambulation;bathing/hygiene;preparing meals;managing money Lives at [facility]. Activities of Daily Living Assistive Device Assessment Assistive Devices: Walker;Eyeglasses;Dentures upper Osteoporosis Screening Assessment Has the patient had a DEXA scan in the past 2 years?: (!) No Pt has osteopenia. On calcium and vitamin d Abnormal Pains Assessment Excluding what you would [...] get along with other people?: Somewhat difficult Goes to counseling at [facility]. Sees Ela Olivares for medication management. Advanced Directive Evaluation Does the patient have an Advance Directive?: (!) No Advance Care Planning Guide Given?: Yes Advanced directive pamplet given to pt. (For Dementia Screening below can use either [...] No results found for this visit on 09/07/18. Patient Active Problem List Diagnosis ??? History of CVA with residual deficit ??? Essential hypertension ??? Hemiparesis affecting left side as late effect of stroke ([facility]) ??? ELIU (iron deficiency anemia) ??? JACK (acute kidney injury) (HCC) ??? ASHD (arteriosclerotic heart disease) ??? Chronic diastolic heart failure (HCC) ??? S/P ablation of atrial flutter ??? Diabetes mellitus type 2 in obese (HCC) ??? Mood disorder (HCC) ??? Recurrent major depressive disorder, in partial remission (HCC) ??? Schizoaffective disorder, depressive type ([facility]) ??? Intellectual disability ??? Positive occult stool blood test ??? Old SC (myocardial infarction) ??? Osteopenia of multiple sites ??? Severe obesity (BMI 35.0-39.9) with comorbidity (HCC) ??? Hypovolemic shock (HCC) ??? Falls, initial encounter Past Medical History: Diagnosis Date ??? Atrial flutter (HCC) EPS, AFL Ablation on 12/31/[address] Tee ??? CHF (congestive heart failure) (HCC) ??? COPD (chronic obstructive pulmonary disease) (HCC) ??? DDD (degenerative disc disease) ??? Diabetes mellitus (HCC) ??? Gastrointestinal hemorrhage associated with gastroduodenitis 04/01/2015 ??? Hypertension ??? Intellectual disability 05/03/2017 ??? SC (myocardial infarction) (HCC) ??? RLS (restless legs [...] AND BRUSHING; Surgeon: Be Brown MD; Location: [facility] END[facility]; Service: Endoscopy Allergies Allergen Reactions ??? Compazine [Prochlorperazine Edisylate] ??? [place] ??? Pentazocine Hcl ??? Prochlorperazine Maleate ??? [...] mg by mouth 2 times daily. ??? clopidogrel (PLAVIX) 75 mg Oral Tablet [...] g by mouth 2 times daily. ??? lamoTRIgine (LAMICTAL) 100 mg Oral Tablet Take 50 mg by mouth daily environmental protection specialist. And Takes 100 mg at night ??? Melatonin 3 mg Oral Tablet Take 5 mg by mouth nightly. ??? oxybutynin (DITROPAN-XL) 10 mg Oral Tablet [...] level: None Occupational History ??? Occupation: retired Social Needs ??? Financial resource strain: None ??? Food insecurity: Worry: None Inability: None ??? Transportation needs: Medical: None Non-medical: None Tobacco Use ??? Smoking status: Never Smoker ??? Smokeless tobacco: Never Used Substance and Sexual Activity ??? Alcohol use: No Comment: wednesday mass ??? Drug use: No ??? Sexual activity: Never Lifestyle ??? Physical activity: Days per week: None Minutes per session: None ??? Stress: None Relationships ??? Social connections: Talks on phone: None Gets together: None Attends protestant service: None Active member of club or organization: None Attends meetings of clubs or organizations: None Relationship status: None ??? Intimate partner violence: Fear of current or ex partner: None Emotionally abused: None Physically abused: None Forced sexual activity: None Other Topics Concern ??? None Social History Narrative Lives at [facility] Has two children and two grandchildren. [...] FIT 08/11/2018 ??? Hemoglobin A1c 10/17/2018 ??? Influenza Vaccine (1) 11/06/2018 ??? Lipids 04/19/2019 ??? Microalbuminuria 05/18/2019 ??? Fall Risk Assessment 07/27/2019 ??? Diabetic Eye Exam 04/19/2020 ??? Breast Cancer Screening 07/25/2020 ??? Bone Density Screening Completed ??? Hepatitis C Screening Completed ??? Pneumococcal Vaccine 65+ Completed Health Maintenance Due Topic Date Due ??? Hepatitis B Vaccine (1 of 3 - Risk 3-dose series) 07/13/1970 ??? Zoster (1 of 2) 07/13/2001 ??? Annual Wellness Exam 09/21/2017 ??? Colon Cancer Screening: FIT 08/11/2018 Patient Care Team: Sharee Segovia ARNP as PCP - General (Nurse Practitioner-Family) Additional issues addressed today: Review of Systems Constitutional: Negative. HENT: Negative. Eyes: Negative. Respiratory: Positive for cough. Neurological: Weakness: Headaches: Psychiatric/Behavioral: Chronic mood issues no worsening of symptoms OBJECTIVE: Physical Exam NAD PERRL, ANICTERIS EOMI CTA B RR no murmur No cyanosis or clubbing, 1+ edema of her lower legs and feet ABDOMEN SOFT WITH POS BS, NONTENDER Non focal neuro exam GAIT STEADY, POSTURE ERECT documented in this encounter Miscellaneous Notes * Patient Instructions - Shruthi Rosas CMA - 09/07/2018 2:20 PM EDT You may be contacted by mail or e-mail to participate in a patient satisfaction survey regarding your office visit today. We value your opinion and depend on your feedback to make improvements and provide you with the best possible experience while receiving high quality medical treatment. Your time in completing this survey is greatly appreciated. 1. Count calories: Can look up on [employer]. Goal 1500 calories per day. 2. No fruit juice or regular POP. 3. Watch night time snacking. Good alternative is pop corn 4. Split meals when you eat out. 5. Smaller portions and fewer servings, leave food on your plate. 6. Aerobic exercise at least 3x per week. 7. Watch anything white like breads, pasta, and potatoes. (startches) Above tools can decrease current intake by 500 calories per day, which can provide good weight loss. Dietary information can be very confusing, and the research sometimes makes us positively vertiginous. The bulk of the evidence, though, supports the Mediterranean diet as the best at reducing the risk of heart disease and cancer, and at improving health. So that diet is the one which I recommend routinely to my patients. Other general recommendations from the wealth of nutritional research published currently: 1. Eat fewer white carbohydrates 2. Add low-fat milk products 3. Include whole grains 4. Eat fruits and vegetables 5. Add good oils Behavioral Modifications that can be helpful ?? Avoid eating everything on your plate. Though we should be appreciative that we have enough to eat, eating compulsively only leads to taking in many more calories than we intend. Leave one bite onyour plate to start paying attention to when your stomach is full. ?? Avoid distraction. Be mindful when you eat. Keep the television off. Don't eat at the movies. Listen to your body. ?? Eat only at meal time. Most of us are not disciplined enough to limit calories while eating snacks between meals. ?? Think of those hunger pangs as a good thing. If you experience hunger, you will start burning fat! But you must eat several times a day to keep your metabolic rate up, or your body will think you're starving and start lowering your metabolic rate to conserve fat for the famine! If you have diabetes or hypoglycemia, be careful and watch your blood sugars. Diet-Food Guide Pyramid, USDA For a 2,000-calorie diet, you need the amounts below from each food group. To find the amounts thatare right for you, go to MyPyramid.gov. GRAINS ?? Eat at least 6 oz. of whole-grain cereals, breads, crackers, rice or pasta every day. ?? 1 oz. is about 1 slice of breads, about 1 cup of cereal, or 1/2 cup of cooked rice, cereal or pasta. VEGETABLES ?? Eat 2 1/2 cups every day. ?? Eat more dark green veggies like broccoli, spinach and other dark leafy greens. ?? Eat more orange vegetables like carrots and sweet potatoes. ?? Eat dry beans and peas (small beans, kidney beans and lentils). FRUITS ?? Eat 2 cups every day. ?? Eat a variety of fruit. ?? Choose fresh, frozen, canned or dried fruit. ?? Go easy on fruit juices. MILK ?? Get 3 cups every day (for kids aged 2 to 8, drink 2 cups). ?? Go low-fat or fat-free when you choose milk, yogurt and other milk products. ?? If you do not or cannot drink milk, choose lactose-free products or other calcium sources such as fortified foods and beverages. MEAT AND BEANS ?? Eat 5 1/2 oz. every day. ?? Choose low-fat or lean meats and poultry. ?? Bake it, broil it or grill it. ?? Vary your protein routine. Choose more fish, beans, peas, nuts and seeds. FATS, SUGARS AND SALT (SODIUM) ?? Make most of your fat sources from fish, nuts and vegetable oils. ?? Limit solid fats like butter, margarine, shortening, and lard, as well as foods that contain these. ?? Check the nutrition facts label to keep saturated fats, trans fats, and sodium low. ?? Choose food and beverages low in added sugars. Added sugars contribute calories with few, if any, nutrients. Find your balance between food and physical activity. Information courtesy of [employer] and [employer] Document Released: 03/13/2008 Document Re-Released: 05/31/2008 ExitCare?? Patient Information ??2010 [employer] DASH Eating Plan DASH stands for Dietary Approaches to Stop Hypertension. The DASH eating plan is a healthy eatingplan that has been shown to reduce high blood pressure (hypertension). Additional health benefits may include reducing the risk of type 2 diabetes mellitus, heart disease, and stroke. The DASH eatingplan may also help with weight loss. WHAT DO I NEED TO KNOW ABOUT THE DASH EATING PLAN? For the DASH eating plan, you will follow these general guidelines: Choose foods with a percent daily value for sodium of less than 5% (as listed on the food label). Use salt-free seasonings or herbs instead of table salt or sea salt. Check with your health care provider or pharmacist before using salt substitutes. Eat lower-sodium products, often labeled as lower sodium or no salt added. Eat fresh foods. Eat more vegetables, fruits, and low-fat dairy products. Choose whole grains. Look for the word whole as the first word in the ingredient list. Choose fish and skinless chicken or turkey more often than red meat. Limit fish, poultry, and meat to 6 oz (170 g) each day. Limit sweets, desserts, sugars, and sugary drinks. Choose heart-healthy fats. Limit cheese to 1 oz (28 g) per day. Eat more home-cooked food and less restaurant, buffet, and fast food. Limit fried foods. Cook foods using methods other than frying. Limit canned vegetables. If you do use them, rinse them well to decrease the sodium. When eating at a restaurant, ask that your food be prepared with less salt, or no salt if possible. WHAT FOODS CAN I EAT? Seek help from a dietitian for individual calorie needs. Grains Whole grain or whole wheat bread. Brown rice. Whole grain or whole wheat pasta. Quinoa, bulgur, andwhole grain cereals. Low-sodium cereals. [place] or whole wheat flour tortillas. Whole grain cornbread. Whole grain crackers. Low-sodium crackers. Vegetables Fresh or frozen vegetables (raw, steamed, roasted, or grilled). Low-sodium or reduced-sodium tomatoand vegetable juices. Low-sodium or reduced-sodium tomato sauce and paste. Low-sodium or reduced-sodium canned vegetables. Fruits All fresh, canned (in natural juice), or frozen fruits. Meat and Other Protein Products Ground beef (85% or leaner), grass-fed beef, or beef trimmed of fat. Skinless chicken or turkey. Ground chicken or turkey. Pork trimmed of fat. All fish and seafood. Eggs. Dried beans, peas, or lentils. Unsalted nuts and seeds. Unsalted canned beans. Dairy Low-fat dairy products, such as skim or 1% milk, 2% or reduced-fat cheeses, low- fat ricotta or cottage cheese, or plain low-fat yogurt. Low-sodium or reduced- sodium cheeses. Fats and Oils Tub margarines without trans fats. Light or reduced-fat mayonnaise and salad dressings (reduced sodium). Avocado. Safflower, olive, or canola oils. Natural peanut or almond butter. Other Unsalted popcorn and pretzels. The items listed above may not be a complete list of recommended foods or beverages. Contact your dietitian for more options. WHAT FOODS ARE NOT RECOMMENDED? Grains White bread. White pasta. White rice. Refined cornbread. Bagels and croissants. Crackers that contain trans fat. Vegetables Creamed or fried vegetables. Vegetables in a cheese sauce. Regular canned vegetables. Regular canned tomato sauce and paste. Regular tomato and vegetable juices. Fruits Dried fruits. Canned fruit in light or heavy syrup. Fruit juice. Meat and Other Protein Products Fatty cuts of meat. Ribs, chicken wings, baez, sausage, bologna, salami, chitterlings, fatback, hot dogs, bratwurst, and packaged luncheon meats. Salted nuts and seeds. Canned beans with salt. Dairy Whole or 2% milk, cream, [id number], and cream cheese. Whole-fat or sweetened yogurt. Full-fat cheeses or blue cheese. Nondairy creamers and whipped toppings. Processed cheese, cheese spreads, or cheese curds. Condiments Onion and garlic salt, seasoned salt, table salt, and sea salt. Canned and packaged gravies. Worcestershire sauce. Tartar sauce. Barbecue sauce. Teriyaki sauce. Soy sauce, including reduced sodium. Steak sauce. Fish sauce. Oyster sauce. Cocktail sauce. Horseradish. Ketchup and mustard. Meat flavorings and tenderizers. Bouillon cubes. Hot sauce. Tabasco sauce. Marinades. Taco seasonings. Relishes. Fats and Oils Butter, stick margarine, lard, shortening, ghee, and baez fat. Coconut, palm kernel, or palm oils.Regular salad dressings. Other Pickles and olives. Salted popcorn and pretzels. The items listed above may not be a complete list of foods and beverages to avoid. Contact your dietitian for more information. WHERE CAN I FIND MORE INFORMATION? National Heart, Lung, and Blood [place]: www.nhlbi.nih.gov/health/health-topics/topics/dash/ Document Released: 02/11/2012 Document Revised: 02/27/2014 Document Reviewed: 12/27/2013 ExitCare?? Patient Information ??2015 ImmuRx. This information is not intended to replace advice given to you by your health care provider. Make sure you discuss any questions you have with your health care provider. documented in this encounter Plan of Treatment Pending Results Name Type Priority Associated Diagnoses Date /Time COLOGUARD Microbiology Routine Screening for malignant neoplasm of the rectum Special screening for malignant neoplasms, colon 09/20/2018 8:20 PM EDT Scheduled Referrals Name Type Priority Associated Diagnoses Order Schedule AMB REFERRAL TO UROGYNECOLOGY Outpatient Referral Routine Urinary incontinence, unspecified type Ordered: 09/07/2018 AMB REFERRAL TO SOCIAL WORK Outpatient Referral Routine Diabetes mellitus type 2 in obese (HCC) (HCC) Falls, initial encounter History of CVA with residual deficit Ordered: 09/07/2018 documented as of this encounter Goals Goal Patient Goal Type Associated Problems Recent Progress Patient-Stated? Author Blood Pressure < 140/90 Blood Pressure 124/52(2018 4:00 PM EDT) No Silva Mathew, RMA BMI (Calculated) < 30 General 35.6(10/06/19 19 4:56 PM EDT) No Silva Mathew RMA Maintain a healthy diet, exercise regularly and maintain an ideal body weight General No Silva Mathew, RMA HEMOGLOBIN A1C < 7.0 Result Component 6.6( 9 9:49 AM EST) No Silva Mathew RMA documented as of this encounter Procedures Procedure Name Priority Date/Time Associated Diagnosis Comments COLOGUARD Routine 09/20/2018 8:20 PM EDT Screening for malignant neoplasm of the rectum Special screening for malignant neoplasms, colon CBC WITH DIFF Routine 09/07/2018 2:53 PM EDT Other iron deficiency anemia COMPREHENSIVE METABOLIC PANEL Routine 09/07/2018 2:53 PM EDT Essential hypertension Diabetes mellitus type 2 in obese (HCC) (HCC) documented in this encounter Results * (ABNORMAL) CBC WITH DIFF (09/07/2018 2:53 PM EDT) WBC 7.5 3.7 - 10.3 x10(3)/mcL 09/07/2018 7:07 PM EDT [facility] RBC 3.68(L) 3.90 - 5.20 x10(6)/mcL 09/07/2018 7:07 PM EDT [facility] Hgb 11.1(L) 11.2 - 15.7 g/dL 09/07/2018 7:07 PM EDT [facility] Hct 34.5 34.0 - 45.0 % 09/07/2018 7:07 PM EDT [facility] MCV 93.8 80.0 - 100.0 fL 09/07/2018 7:07 PM EDT [facility] MCH 30.2 26.0 - 34.0 pg 09/07/2018 7:07 PM EDT [facility] MCHC 32.2 30.7 - 35.5 g/dL 09/07/2018 7:07 PM EDT [facility] RDW 14.2 <=14.9 % 09/07/2018 7:07 PM EDT [facility] Platelet 172 155 - 369 x10(3)/mcL 09/07/2018 7:07 PM EDT [facility] MPV 12.2 8.8 - 12.5 fL 09/07/2018 7:07 PM EDT [facility] Neut Percent 59.7 % 09/07/2018 7:07 PM EDT [facility] Comment:Neutrophils equals s egs plus bands Imm Gran% 0.7 % 09/07/2018 7:07 PM EDT [facility] Comment:Automated count of m etamyelocytes, myelocytes and promyelocytes. Lymph Percent 29.1 % 09/07/2018 7:07 PM EDT [facility] [place] Percent 6.4 % 09/07/2018 7:07 PM EDT [facility] Eos Percent 3.7 % 09/07/2018 7:07 PM EDT [facility] Baso Percent 0.4 % 09/07/2018 7:07 PM EDT [facility] Neut # 4.5 1.6 - 6.1 x10(3)/mcL 09/07/2018 7:07 PM EDT [facility] Comment:Neutrophils equals s egs plus bands IMMGRAN# 0.1 0.0 - 0.1 x10(3)/mcL 09/07/2018 7:07 PM EDT [facility] Comment:Automated count of m etamyelocytes, myelocytes and promyelocytes. An absolute IG <0.1 is reported as 0.0. Lymph # 2.2 1.2 - 3.9 x10(3)/mcL 09/07/2018 7:07 PM EDT [facility] [place] # 0.5 0.3 - 0.9 x10(3)/mcL 09/07/2018 7:07 PM EDT [facility] Eos# 0.3 0.0 - 0.5 x10(3)/[facility] 09/07/2018 7:07 PM EDT [facility] Baso # 0.0 0.0 - 0.1 x10(3)/[facility] 09/07/2018 7:07 PM EDT [facility] Blood VENOUS BLOOD / Unknown Venipuncture / Unknown 09/07/2018 2:53 PM EDT 09/07/2018 2:53 PM EDT Sharee Segovia BUSINESS ECONOMIST HEMATOLOGY ORDERABLES Fin al Result [facility] [address] , [place] [address] * (ABNORMAL) COMPREHENSIVE METABOLIC PANEL (09/07/2018 2:53 PM EDT) Sodium 141 136 - 145 mmol/L 09/07/2018 7:30 PM EDT [facility] Potassium 4.6 3.5 - 5.0 mmol/L 09/07/2018 7:30 PM EDT [facility] Chloride 103 98 - 107 mmol/L 09/07/2018 7:30 PM EDT [facility] Total CO2 27 22 - 29 mmol/L 09/07/2018 7:30 PM EDT [facility] Anion Gap 11 7 - 16 mmol/L 09/07/2018 7:30 PM EDT [facility] Calcium 9.9 8.8 - 10.4 mg/dL 09/07/2018 7:30 PM EDT [facility] Glucose Lvl 174(H) 82 - 100 mg/dL 09/07/2018 7:30 PM EDT [facility] BUN 23 8 - 23 mg/dL 09/07/2018 7:30 PM EDT [facility] Creatinine 1.59(H) 0.51 - 1.30 mg/dL 09/07/2018 7:30 PM EDT [facility] Albumin 4.4 3.2 - 4.6 gm/dL 09/07/2018 7:30 PM EDT [facility] Total Protein 7.3 6.4 - 8.3 gm/dL 09/07/2018 7:30 PM EDT [facility] Bili Total 0.4 0.1 - 1.3 mg/dL 09/07/2018 7:30 PM EDT [facility] ALT 8 <=41 IU/L 09/07/2018 7:30 PM EDT [facility] AST 9 <=40 IU/L 09/07/2018 7:30 PM EDT [facility] Alk Phos 132(H) 36 - 123 IU/L 09/07/2018 7:30 PM EDT [facility], [facility] GFR Afr Am 38(L) >=60 mL/min/1.7 3 m2 09/07/2018 7:30 PM EDT [facility] GFR Non Afr Am 33(L) >=60 mL/min/1.7 3 m2 09/07/2018 7:30 PM EDT [facility] Comment: This estimated GFR was [...] VENOUS BLOOD / Unknown Venipuncture / Unknown 09/07/2018 2:53 PM EDT 09/07/2018 2:53 PM EDT us Sharee Segovia BUSINESS ECONOMIST CHEMISTRY ORDERABLES Mildred pike Result [facility] [address] , [place] [address] [facility] [address] [place], [place] [id number] documented in this encounter Visit Diagnoses Diagnosis Essential hypertension- Primary Unspecified essential hypertension Special screening for malignant neoplasms, colon Screening for malignant neoplasm of the rectum Diabetes mellitus type 2 in obese Type II or unspecified type diabetes mellitus without mention of complication, not stated as uncontrolled Urinary incontinence, unspecified type Falls, initial encounter History of CVA with residual deficit Other iron deficiency anemia Need for vaccination Need for prophylactic vaccination and inoculation against unspecified single disease Annual physical exam Routine general medical examination at a health care facility documented in this encounter Discontinued Medications Medication Sig Discontinue Reason Start Date End Da te Insulin glargine (BASAGLAR KWIKPEN U-100 INSULIN) 100 unit/mL (3 mL) SubQ Insulin PenIndications:Diabet es mellitus type 2 in obese Subcutaneous (Inject under the skin) 20 Units every evening. Reorder 08/15/2018 09/07/2018 Calcium Carbonate-Vitamin D3 (CALCIUM 600 + D,3,) 600 mg calcium- 200 unit Oral Capsule Take 1 Tab by mouth every 12 hours. Reorder 07/13/2018 09/07/2018 documented as of this encounter Additional Health Concerns Assessment Noted Time PHQ-9 Depression Total Score: 2 07/27/19 19 9:40 AM EDT A fall risk assessment has been complete d for the patient 05/17/2018 8:17 AM EDT PHQ-2 Depression Total Score: 2 07/27/19 19 9:40 AM EDT documented as of this encounter Care Teams Title Investigator Relationship Specialty Start Date End Date Sharee Segovia APRN [address] [place] [address] PCP - General Nurse Practitioner-Family 09/21/16 documented as of this encounter
--- OUTSIDE RECORDS SUMMARY | 2024-02-16 14:50 | XMS_ITS | Encounter Summary ---
Author Organization [place] [address] Care Team Providers Care Flat Screen Worker Name Role Phone Sharee Segovia APRN Primary Care Provider [phone] Reason for Visit * Reason Comments Medication Refill Encounter Details Date Type Department Care Team (Late st Contact Info) Description 09/06/2018 Refill [facility] [address] [place] [address] Sharee Segovia APRN [address] [place] [address] Medication Refill Social History Tobacco Use Types Packs/Day Years [...] Refills Last Filled Start Date End Date oxybutynin (DITROPAN-XL) 10 mg Oral Tablet Extended Rel 24 hrIndications:Postu ral urinary incontinence TAKE ONE TABLET BY MOUTH ONCE DAILY 30 Tab 2 09/06/2018 documented in this encounter Plan of Treatment Not on file documented as of this encounter Goals Goal Patient Goal Type Associated Problems Recent Progress Patient-Stated? Author Blood Pressure < 140/90 Blood Pressure 124/52(2018 4:00 PM EDT) Silva Mead RMA BMI (Calculated) < 30 General 35.6(10/06/19 19 4:56 PM EDT) Silva Mead RMA Maintain a healthy diet, exercise regularly and maintain an ideal body weight General No Silva Mathew RMA HEMOGLOBIN A1C < 7.0 Result Component 6.6( 9 9:49 AM EST) Silva Mead RMA documented as of this encounter Visit Diagnoses Diagnosis Postural urinary incontinence documented in this encounter Discontinued Medications Medication Sig Discontinue Reason Start Date End Da te oxybutynin (DITROPAN-XL) 10 mg Oral Tablet Extended Rel 24 hrIndications:Postural urinary incontinence Take 1 Tab by mouth daily. Reorder 06/14/2018 09/06/2018 documented as of this encounter Additional Health Concerns Assessment Noted Time PHQ-9 Depression Total Score: 2 07/27/19 19 9:40 AM EDT A fall risk assessment has been complete d for the patient 05/17/2018 8:17 AM EDT PHQ-2 Depression Total Score: 2 07/27/19 19 9:40 AM EDT documented as of this encounter Care Teams Flat Screen Worker Relationship Specialty Start Date End Date Sharee Segovia APRN [address] [place] [phone] PCP - General Nurse Practitioner-Family 09/21/16 documented as of this encounter
--- OUTSIDE RECORDS SUMMARY | 2024-02-16 14:51 | XMS_ITS | Encounter Summary ---
Author Organization [place] [address] Care Team Providers Care Molder Name Role Phone Sharee Segovia APRN Primary Care Provider [phone] Encounter Details Date Type Department Care Team (Late st Contact Info) Description 04/20/2018 Orders Only [facility] [address] [place] [address] Sharee Segovia APRN [address] [place] [address] Essential hypertension (Primary Dx) Social History Tobacco Use Types Packs/Day Years Used Date Smoking Tobacco: Never Smokeless Tobacco: Never Alcohol Use Standard Drinks/Week Comments No 0 (1 standard drink = 0.6 oz pur e alcohol) wednesday mass Sexually Active Control Partners Comments Never Comments [...] Type Priority Associated Diagnoses Orde r Schedule BASIC METABOLIC PANEL Lab Routine Essential hypertension Expected: 05/18/2018, Expires: 04/20/2019 documented as of this encounter Goals Goal Patient Goal Type Associated Problems Recent Progress Patient-Stated? Author Blood Pressure < 140/90 Blood Pressure 124/52(2018 4:00 PM EDT) No Silva Mathew RMA BMI (Calculated) < 30 General 35.6(10/06/19 19 4:56 PM EDT) No Silva Mathew, RMA Maintain a healthy diet, exercise regularly and maintain an ideal body weight General No Silva Mathew RMA HEMOGLOBIN A1C < 7.0 Result Component 6.6( 9 9:49 AM EST) No Silva Mathew RMA documented as of this encounter Visit Diagnoses Diagnosis Essential hypertension- Primary Unspecified essential hypertension documented in this encounter Additional Health Concerns Assessment Noted Time PHQ-9 Depression Total Score: 13 019 9:00 AM EST A fall risk assessment has been complete d for the patient 04/21/2017 10:52 AM EST PHQ-2 Depression Total Score: 6 04/19/19 19 9:00 AM EST documented as of this encounter Care Teams Molder Relationship Specialty Start Date End Date Sharee Segovia APRN [address] [place] [phone] PCP - General Nurse Practitioner-Family 09/21/16 documented as of this encounter
--- OUTSIDE RECORDS SUMMARY | 2024-02-16 14:51 | XMS_ITS | Encounter Summary ---
Author Organization [place] [address] Care Team Providers Care Electronic Intelligence Officer Name Role Phone Sharee Segovia APRN Primary Care Provider [phone] Reason for Visit * Reason Comments Medication Refill Encounter Details Date Type Department Care Team (Late st Contact Info) Description 06/16/2018 Refill [facility] [address] [place] [address] Sharee Segovia APRN [address] [place] [address] Medication Refill Social History Tobacco Use Types [...] Sharee García APRN documented in this encounter Ordered Prescriptions Prescription Sig Dispense Quantity Refills Last Filled Start Date End Date OLIVE MUELLER U-100 INSULIN 100 unit/mL (3 mL) SubQ Insulin Pen INJECT 32 UNITS UNDER THE SKIN DAILY AT BEDTIME 15 mL 3 06/16/2018 9 documented in this encounter Plan of Treatment [...] 8:17 AM EDT PHQ-2 Depression Total Score: 6 04/19/19 19 9:00 AM EST documented as of this encounter Care Teams Electronic Intelligence Officer Relationship Specialty Start Date End Date Sharee Segovia APRN [address] [place], [place] [address] PCP - General Nurse Practitioner-Family 09/21/16 documented as of this encounter
--- OUTSIDE RECORDS SUMMARY | 2024-02-16 14:51 | XMS_ITS | Encounter Summary ---
Author Organization [place] [address] Care Team Providers Care Motion Picture Equipment Machinist Name Role Phone SegoviaSharee nichols NIKO Primary Care Provider [phone] Reason for Visit * Reason Comments Diabetes Nail Care * In Office Procedure (Routine) - Closed Specialty Diagnoses / Procedures Referred By Arsh patel Referred To Contact Diagnoses Type 2 diabetes mellitus with diabetic polyneuropathy (HCC) Type 2 diabetes mellitus with hyperglycemia (HCC) Valgus deformity, not elsewhere classified, left ankle Tinea unguium Pain in right toe(s) Pain in left toe(s) Procedures CT DEBRIDEMENT OF NAILS, 6 OR MORE Mayo Muse, TJ [address] [place] [address] Phone: tel: fax: Mayo Muse, T[place] [address] [place] [address] Phone: tel: fax: Referral ID Status Reason Start Date Expiration Date Visits Re quested Visits Authorized [id number] Closed 06/02/2018 07/03/2018 1 1 Encounter Details Date Type Department Care Team (Late st Contact Info) Description 06/02/2018 1:00 PM EDT Office Visit [facility] [place] [address] [place] [address] Mayo Muse, T[place] [address] [place] [address] 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 (HCC) (Primary Dx); Acquired valgus deformity of left ankle; Onychomycosis; Pre-ulcerative calluses; History of CVA (cerebrovascular accident); Pain in toes of both feet; Peripheral motor neuropathy Social History Tobacco Use Types Packs/Day Years [...] - - Weight 105.7 kg (233 lb) 06/02/2018 1:18 PM EDT Height 172.7 cm (5' 8 ) 06/02/2018 1:18 PM EDT Body Mass Index 35.43 06/02/2018 1:18 PM EDT documented in this encounter Functional [...] Progress Notes * Mayo Muse DPM - 06/02/2018 1:00 PM EDT [facility] Podiatric Surgery Outpatient Progress Note Mayo Muse DPM Name: Faby Palm Primary Care Physician: Sharee Segovia ARNP Chief Complaint: Chief Complaint Patient presents with ??? Diabetes ??? Nail Care History of Presenting Illness: Faby Palm is a 67 y.o. female who is here for painful toenails 1-5 of both feet. Relates thatpain is with shoe pressures. No new pedal complaints. Medications: Outpatient Prescriptions Marked as Taking for the 06/02/18 encounter (Office Visit) with Mayo uMse DPM Medication Sig Dispense Refill ??? acetaminophen [...] busPIRone (BUSPAR) 5 mg Oral Tablet Take 10 mg by [...] mouth 2 times daily. ??? insulin glargine (LANTUS) 100 unit/mL SubQ Solution 30 units sq nightly (Patient taking differently: Subcutaneous (Inject under the skin) 28 Units nightly. 30 units sq nightly) 10 mL 2 ??? isosorbide mononitrate (IMDUR) 60 mg Oral Tablet Sustained Release 24 hr TAKE ONE TABLET BY MOUTH ONCE DAILY 30 Tab 1 ??? lamoTRIgine (LAMICTAL) 100 mg Oral Tablet Take 50 mg by mouth 2 times daily. Takes 100 mg at night ??? lamoTRIgine (LAMICTAL) 25 mg Oral Tablet Take 1 Tab by mouth 2 times daily. 60 Tab 0 ??? lisinopril (PRINIVIL;ZESTRIL) 20 mg Oral Tablet [...] Top Cream Apply topically 2 times daily. 30 g 1 ??? nitroGLYCERIN (NITROSTAT) 0.4 mg SL Tablet, Sublingual Place 1 Tab under the tongue every 5 minutes as needed for Chest pain. 20 Tab 2 ??? omega-3 acid ethyl esters (LOVAZA) 1 gram Oral Capsule Take 1 g by mouth 2 times daily. ??? pantoprazole (PROTONIX) 40 mg Oral Tablet, [...] traZODone (DESYREL) 50 mg Oral Tablet Take 1 Tab by mouth nightly. 30 Tab 2 Allergies Allergen Reactions ??? Compazine [Prochlorperazine Edisylate] ??? [place] ??? Pentazocine Hcl ??? Prochlorperazine Maleate ??? [place] [Pentazocine Lactate] Past Medical History: Diagnosis Date ??? Atrial flutter (HCC) EPS, AFL Ablation on 12/31/[address] Tee ??? CHF (congestive heart failure) (HCC) ??? COPD (chronic obstructive pulmonary disease) (HCC) ??? DDD (degenerative disc disease) ??? Diabetes mellitus (HCC) ??? Hypertension ??? Intellectual disability 05/03/2017 ??? KS (myocardial infarction) (HCC) ??? RLS (restless legs [...] REPLACEMENT left total knee replacement 1999 ??? LUNG SURGERY partial removal ??? ORTHOPEDIC SURGERY ??? TONSILLECTOMY ??? UPPER GASTROINTESTINAL ENDOSCOPY N/A 04/03/2015 ESOPHAGOGASTRODUODENOSCOPY WITH BIOPSY AND BRUSHING; Surgeon: Be Brown MD; Location: [facility]; Service: Endoscopy Family History Problem Relation Age of Onset ??? Cancer Mother larnyx cancer ??? Colon Cancer Mother ??? Heart Disease Sister ??? No Known Problems Son ??? Seizures Daughter Social History: Faby's social history reviewed: Social History Social History ??? Marital status: Spouse name: N/A ??? Number of children: 2 ??? Years of education: N/A Occupational History ??? retired Social History Main Topics ??? Smoking status: Never Smoker ??? Smokeless tobacco: Never Used ??? Alcohol use No Comment: wednesday mass ??? Drug use: No ??? Sexual activity: No Other Topics Concern ??? None Social History Narrative Lives at [facility] Has two children and two grandchildren. [...] negative. Physical Examination: Vital Signs: Ht 5' 8 (1.727 m) Wt 233 lb (105.7 kg) BMI 35.43 kg/m?? General: Faby appears in no acute [...] debris. No gross evidence of subungual abscess. ?? +Pain to palpation. Skin is thin, cool to touch. +Shiny. +Paresthesia, +Burning. No open wounds. ?? +Preulcerative callus noted to left great toe. ?? Monofilament & Eye Exam 04/21/2017 07/15/2017 04/19/2018 [...] Normal Assessment: Faby was seen today for diabetes and nail care. Diagnoses and all orders for this visit: 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 (HCC) - CT DEBRIDEMENT OF NAILS, 6 OR MORE Acquired valgus deformity of left ankle - CT DEBRIDEMENT OF NAILS, 6 OR MORE Onychomycosis - CT DEBRIDEMENT OF NAILS, 6 OR MORE Pre-ulcerative calluses - CT TRIM HYPERKERATOTIC SKIN LESION, ONE History of CVA (cerebrovascular accident) - CT TRIM HYPERKERATOTIC SKIN LESION, ONE Pain in toes of both feet - CT DEBRIDEMENT OF NAILS, 6 OR MORE - CT TRIM HYPERKERATOTIC SKIN LESION, ONE Peripheral motor neuropathy - CT TRIM HYPERKERATOTIC SKIN LESION, ONE Treatment: - Debrided mycotic appearing hypertrophied nails of both dystrophic thickening and length to reliefof all affected toes. No new orders regarding nail treatment. -Sharp pairing of pre-ulcerative callus left great toe with 15 blade. - Encouraged daily foot examinations. Call immediately with signs or symptoms of infection which were discussed. - Follow up in 3 months. ?? Mayo Muse DPM 06/02/2018 documented in this encounter Miscellaneous Notes * Patient Instructions - Dana Lynn CMA - 06/02/2018 1:19 PM EDT Patient Education Hand Washing Germs like bacteria, viruses, and parasites are found everywhere. They can be in the air and water,and they can be on surfaces like food, door handles, and your skin. Every day, your hands come intocontact with germs, many of which can make you and your family sick. Washing your hands is one of the easiest and most effective ways to reduce your risk of huyen and sharing germs. When should I wash my hands? You should wash your hands whenever you think they are dirty. You should also wash your hands: ?? Before: ? Visiting a baby or anyone with a weakened or lowered defense (immune) system. ? Putting in and taking out any contact lenses. ?? After: ? Working or playing outside. ? Touching an animal or its toys or leash. ? Handling livestock. ? Using the bathroom. ? Using household as400 developer or toxic chemicals. ? Touching or taking out the garbage. ? Touching anything dirty around your home. ? Handling soiled clothes or rags. ? Taking care of a sick child. This includes touching used tissues, toys, and clothes. ? Sneezing, coughing, or blowing your nose. ? Using public transportation. ? Shaking hands. ? Using a phone, including your mobile phone. ? Touching money. ?? Before and after: ? Preparing food. ? Preparing a bottle for a baby. ? Feeding a baby or young child. ? Eating. ? Visiting or taking care of someone who is sick. ? Changing a diaper. ? Changing a bandage (dressing) or taking care of an injury or wound. ? Giving or taking medicine. What is the correct way to wash my hands? ?? Wet your hands with clean, running water. ?? Apply liquid soap or bar soap to your hands. ?? Rub your hands together quickly to create lather. ?? Keep rubbing your hands together for at least 20 seconds. Thoroughly scrub all parts of your hands, including under your fingernails and between your fingers. ?? Rinse your hands with clean, running water until all the soap is gone. ?? Dry your hands using an air dryer or a clean paper or cloth towel, or let your hands air-dry. Donot use your clothing or a soiled towel to dry your hands. ?? If you are in a public restroom, use your towel: ? To turn off the water faucet. ? To open the bathroom door. How can I clean my hands if I do not have soap and water? If soap and clean water are not available, use an alcohol-based wipe, spray, or hand gel. Use a hand-sanitizing agent that contains at least 60% alcohol. If you are preparing food, hand sanitizers are not recommended as a substitute for hand washing. To use a hand wireless field technician, follow the directions provided on the product, and: ?? Apply an adequate amount of the product to your hands. ?? Make sure you wipe, rub, or spray the product so that it reaches every part of your hands and wrists. Include the backs of your hands, between your fingers, and under your fingernails. ?? Rub the product onto your hands until it dries. This information is not intended to replace advice given to you by your health care provider. Make sure you discuss any questions you have with your health care provider. Document Released: 10/13/2005 Document Revised: 07/22/2016 Document Reviewed: 07/20/2014 [employer] Interactive Patient Education ?? 2018 [employer]. documented in this encounter Plan of Treatment Scheduled Orders Name Type Priority Associated Diagnoses Orde r Schedule CT DEBRIDEMENT OF NAILS, [address] Charge Routine 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 (HCC) Acquired valgus deformity of left ankle Onychomycosis Pain in toes of both feet Ordered: 06/02/2018 CT TRIM HYPERKERATOTIC SKIN LESION, ONE CT Charge Routine Pre-ulcerative calluses History of CVA (cerebrovascular accident) Pain in toes of both feet Peripheral motor neuropathy Ordered: 06/02/2018 documented as of this encounter Goals Goal [...] 2 diabetes mellitus with peripheral neuropathy- Primary Acquired valgus deformity of left ankle Onychomycosis Dermatophytosis of nail Pre-ulcerative calluses Corns and callosities History of CVA (cerebrovascular accident) Transient ischemic attack (TIA), and cerebral infarction without residual deficits Pain in toes of both feet Peripheral motor neuropathy Mononeuritis of unspecified site documented in this encounter Additional Health Concerns Assessment Noted Time PHQ-9 Depression Total Score: 13 019 9:00 AM EST A fall risk assessment has been complete d for the patient 05/17/2018 8:17 AM EDT PHQ-2 Depression Total Score: 6 04/19/19 19 9:00 AM EST documented as of this encounter Care Teams Motion Picture Equipment Machinist Relationship Specialty Start Date End Date Sharee Segovia APRN [address] [place], [place] [phone] PCP - General Nurse Practitioner-Family 09/21/16 documented as of this encounter
--- OUTSIDE RECORDS SUMMARY | 2024-02-16 14:51 | XMS_ITS | Encounter Summary ---
Author Organization [place] [address] Care Team Providers Care Senior Payroll Manager Name Role Phone Sharee Segovia APRN Primary Care Provider [phone] [phone] Reason for Visit * Reason Comments Medication Refill Encounter Details Date Type Department Care Team (Late st Contact Info) Description 07/18/2018 Refill [facility] [address] [place] [address] Sharee Segovia APRN [address] [place] [address] Medication Refill Social History Tobacco Use Types [...] SKIN DAILY AT BEDTIME 15 mL 3 07/18/2018 9 documented in this encounter Plan of [...] documented as of this encounter Care Teams Senior Payroll Manager Relationship Specialty Start Date End Date Sharee Segovia APRN [address] [place], [place] [phone] PCP - General Nurse Practitioner-Family 09/21/16 documented as of this encounter
--- OUTSIDE RECORDS SUMMARY | 2024-02-16 14:51 | XMS_ITS | Encounter Summary ---
Author Organization [facility] [place] [address] Care Team Providers Care Laborer Yard Name Role Phone Sharee Segovia APRN Primary Care Provider [phone] Encounter Details Date Type Department Care Team (Late st Contact Info) Description 07/13/2018 Orders Only SEP [facility] [address] [place] [address] Sharee Segovia APRN [address] [place] [address] Osteopenia of multiple sites (Primary Dx) Social History Tobacco Use Types [...] 1 Tab by mouth every 12 hours. 07/13/2018 09/07/2018 documented in this encounter Plan of Treatment [...] as of this encounter Visit Diagnoses Diagnosis Osteopenia of multiple sites- Primary documented in this encounter Discontinued Medications Medication Sig Discontinue Reason Start Date End Da te BASAGLBEKAH NUNEZPEN U-100 INSULIN 100 unit/mL (3 mL) SubQ Insulin Pen INJECT 32 UNITS UNDER THE SKIN DAILY AT BEDTIME Dose adjustment 06/16/2018 07/13/2018 documented as of this encounter Additional Health Concerns Assessment Noted Time PHQ-9 Depression Total Score: 13 019 9:00 AM EST A fall risk assessment has been complete d for the patient 05/17/2018 8:17 AM EDT PHQ-2 Depression Total Score: 6 04/19/19 19 9:00 AM EST documented as of this encounter Care Teams Laborer Yard Relationship Specialty Start Date End Date Sharee Segovia APRN [address] [place], [place] [phone] PCP - General Nurse Practitioner-Family 09/21/16 documented as of this encounter
--- OUTSIDE RECORDS SUMMARY | 2024-02-16 14:51 | XMS_ITS | Encounter Summary ---
Author Organization [facility] [address] Care Team Providers Care Lpc Name Role Phone Sharee Segovia APRN Primary Care Provider [phone] Reason for Visit * Reason Onset Date Comments Medication Management 07/12/2018 Encounter Details Date Type Department Care Team (Late st Contact Info) Description 07/12/2018 Telephone SEP [facility] [address] [place] [address] Sharee Segovia APRN [address] [employer] [place], [place] [id number] Medication Management Social History Tobacco Use Types [...] Telephone Encounter - Sharee Segovia ARNP - 07/13/2018 11:38 AM EDT See other phone note from same day addressed * Telephone Encounter - Sharee Segovia ARNP - 07/13/2018 8:41 AM EDT Message left for Rafia to call back. * Telephone Encounter - Deena Schmidt CCMA - 07/12/2018 12:55 PM EDT Rafia called back stating they close at 2 if you could call her before then. * Telephone Encounter - Deena Schmidt CCMA - 07/12/2018 12:12 PM EDT [facility] is requesting a call from Sharee or Celina to discuss med changes made at pt's appt today. documented in this encounter Plan of Treatment [...] documented as of this encounter Care Teams Lpc Relationship Specialty Start Date End Date Sharee Segovia APRN [address] [place] [id number] PCP - General Nurse Practitioner-Family 09/21/16 documented as of this encounter
--- OUTSIDE RECORDS SUMMARY | 2024-02-16 14:51 | XMS_ITS | Encounter Summary ---
Author Organization [place] [address] Care Team Providers Care Financial Service Representative Name Role Phone Sharee Segovia APRN Primary Care Provider [phone] Reason for Visit * Reason Comments Chest Pain pt arrives per EMS f or chest pain with SOB while at [facility]. per EMS, staff from [facility] reported pt has been under a lot of stress. pt given ASA, 2 corinne, and zofran in route. BP 130/90 HR 61 98% on RA Shortness of Breath Encounter Details Date Type Department Care Team (Late st Contact Info) Description 06/30/2018 3:42 PM EDT - 06/30/2018 8:36 PM EDT Emergency [facility] Emergency [address] [facility] [place] [address] Yang Valles MD [address] [place] [address] Atypical chest pain (Primary Dx) Discharge Disposition: Home or Self Care Social [...] Sign Reading Time Taken Comments Blood Pressure 116/79 06/30/2018 4:27 PM EDT Pulse 62 06/30/2018 8:35 PM EDT Temperature 36.7 ??C (98 ??F) 06/30/2018 3:49 PM EDT Respiratory Rate 18 06/30/2018 8:35 PM EDT Oxygen Saturation 97% 06/30/2018 8:35 PM EDT Inhaled Oxygen Concentration - - Weight 105.2 kg (232 lb) 06/30/2018 3:49 PM EDT Height 172.7 cm (5' 8 ) 06/30/2018 3:49 PM EDT Body Mass Index 35.28 06/30/2018 3:49 PM EDT documented in this encounter Functional [...] Sharee García APRN documented in this encounter Discharge Instructions * Attachments The following attachments cannot be sent through Care Everywhere. * Nonspecific Chest Pain Brty-hl-Dckc (Mauritanian) documented in this encounter Medications at Time of Discharge albuterol (PROVENTIL HFA; VENTOLIN HFA) 90 mcg/actuation Inhl HFA Aerosol InhalerIndications:C hronic diastolic CHF (congestive heart failure) (HCC),Essential hypertension,ASHD (arteriosclerotic heart disease),S/P ablation of atrial flutter,Old NE (myocardial infarction) Inhale 2 Puffs into the lungs 0800, 1200, 1600, 2000. aspirin (ASPIRIN) 81 mg Oral Tablet, Chewable Take 1 Tab by mouth daily. 30 Tab 11 09/21/2017 atorvastatin (LIPITOR) 20 mg Oral Tablet TAKE ONE TABLET BY MOUTH NIGHTLY 30 Tab 1 03/24/2017 busPIRone (BUSPAR) 5 mg Oral Tablet Take 5 mg by mouth 2 times daily. ferrous sulfate 325 mg (65 mg [...] 10 mg by mouth 2 times daily. 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 30 Tab 11 07/20/2017 9 ARIPiprazole (ABILIFY) 30 mg Oral Tablet Take 1 Tab by mouth daily. 30 Tab 02/23/2017 9 fUROsemide (LASIX) 20 mg Oral Tablet Take 20 mg by mouth daily. 9 isosorbide mononitrate (IMDUR) 60 mg Oral Tablet Sustained Release 24 hr TAKE ONE TABLET BY MOUTH ONCE DAILY 30 Tab 1 03/24/2017 9 lisinopril (PRINIVIL;ZESTRIL) 20 mg Oral TabletIndications:NS NORMA (non-ST elevated myocardial infarction) ([facility]),ASHD (arteriosclerotic heart disease),Essential hypertension,Chronic diastolic CHF (congestive heart failure) ([facility]),Hyperlipidemia , unspecified hyperlipidemia type Take 20 mg by mouth 2 times daily. 9 loperamide (IMODIUM) 2 mg Oral Capsule Take 2 mg by mouth 3 times daily as needed. 9 Melatonin 3 mg Oral Tablet Take 5 mg by mouth nightly. 9 metFORMIN XR (GLUCOPHAGE-XR) 500 mg Oral Tablet Sustained Release 24 hr Take 500 mg by mouth daily (with breakfast). 9 miconazole (MICOTIN) 2 % Top CreamIndications:Int ertrigo Apply topically 2 times daily. Please dispense largest available tube 140 g 1 06/14/2018 9 nitroGLYCERIN (NITROSTAT) 0.4 mg SL Tablet, SublingualIndication s:Angina pectoris ([facility]) Place 1 Tab under the tongue every 5 minutes as needed for Chest pain. 20 Tab 2 11/19/2016 9 omega-3 acid ethyl esters (LOVAZA) 1 gram Oral Capsule Take 1 g by mouth 2 times daily. 9 risperiDONE (RISPERDAL) 0.5 mg Oral Tablet Take 0.5 mg by mouth nightly. 9 documented as of this encounter Discharge Disposition Disposition Code Departure Means Destination Home or Self Group Home documented in this encounter ED Notes * Camryn Rojas RN - 06/30/2018 8:34 PM EDT Pt given cab voucher to return to [facility]. * Camryn Rojas RN - 06/30/2018 7:59 PM EDT Attempted to call report to [facility] and arrange transportation for pt with no response. RN left voicemail and will continue to monitor pt at this time. * Camryn Rojas RN - 06/30/2018 7:19 PM EDT Report received from ABRAM BANSAL. * Ximena Ng RN - 06/30/2018 6:59 PM EDT Dinner tray ordered for patient. * Marjan Jackson RN - 06/30/2018 3:42 PM EDT Bed: [facility] Expected date: Expected time: Means of arrival: Comments: PC * Yang Valles MD - 06/30/2018 3:42 PM EDT Chief Complaint Patient presents with ??? Chest Pain pt arrives per EMS for chest pain with SOB while at [facility]. per EMS, staff from [facility] reported pt has been under a lot of stress. pt given ASA, 2 corinne, and zofran in route. BP 130/90 HR 61 98%on RA ??? Shortness of Breath 67-year-old female presents to the emergency department from her [facility] psychiatric appointment due to chest pain. Pain started about 4 hours ago. She describes it as sharp and stabbing. She ratesit as medium. Pain is just left of center and will occasionally radiate to her jaw. She felt short of breath when the pain began but that has resolved. She denies diaphoresis or nausea. The pain began while at rest and is not worse with exertion. She was given nitroglycerin and aspirin en route to the hospital but reports no improvement. Patient has been under increased stress, which led to herappointment with psychiatry. She has a history of schizoaffective disorder as well as COPD, hypertension, diabetes, congestive heart failure and atrial flutter status post ablation. She had a cardiaccatheterization in July 2017. This showed Ost RCA lesion 60% stenosed, Mid RCA lesion 40% stenosed, Mid LAD lesion 50% stenosed. She was admitted to the hospital in September with chest pain and had negative rule out. Patient History Allergies Allergen Reactions ??? Compazine [Prochlorperazine Edisylate] ??? [place] ??? Pentazocine Hcl ??? Prochlorperazine Maleate ??? [...] into the lungs 0800, 1200, 1600, 2000. Provider, Historical amLODIPine (NORVASC) 2.5 mg Oral [...] UNITS UNDER THE SKIN DAILY AT BEDTIME 06/16/18 Sharee Segovia ARNP busPIRone (BUSPAR) 5 mg Oral Tablet Take 10 mg by mouth 2 times daily. Provider, Historical clopidogrel (PLAVIX) 75 mg Oral Tablet Take 1 Tab by mouth daily. 07/27/17 Ben Anderson APRN ferrous sulfate 325 mg (65 mg iron) [...] glargine U-100 (LANTUS) 100 unit/mL SubQ Solution 32 units sq nightly 06/14/18 Sharee Segovia ARNP isosorbide mononitrate (IMDUR) 60 mg Oral Tablet Sustained Release 24 hr TAKE ONE TABLET BY MOUTH ONCE DAILY 03/24/17 Joanna Pierce MD lamoTRIgine (LAMICTAL) 100 mg Oral Tablet Take [...] traZODone (DESYREL) 50 mg Oral Tablet Take 2 Tabs by mouth nightly. 06/14/18 Sharee Segovia ARNP Past Medical History: Past Medical History: Diagnosis Date ??? Atrial flutter (HCC) EPS, AFL Ablation on 12/31/[address] Tee ??? CHF (congestive heart failure) (HCC) ??? COPD (chronic obstructive pulmonary disease) (HCC) ??? DDD (degenerative disc disease) ??? Diabetes mellitus (HCC) ??? Hypertension ??? Intellectual disability 05/03/2017 ??? NE (myocardial infarction) ([facility]) ??? RLS (restless legs syndrome) ??? Schizoaffective disorder, depressive type ([facility]) 02/19/2017 ??? Stroke ([facility]) 2010 left side affected ??? Suicide attempt [...] Endoscopy Review of Systems Review of Systems Constitutional: Negative for chills and fever. HENT: Negative. Eyes: Negative. Respiratory: Positive for shortness of breath. Negative for cough. Cardiovascular: Positive for chest pain. Negative for palpitations and leg swelling. Gastrointestinal: Negative for abdominal pain, diarrhea, nausea and vomiting. Genitourinary: Negative for dysuria and frequency. Musculoskeletal: Negative. Skin: Negative for rash. Neurological: Negative. Psychiatric/Behavioral: Negative. All other systems reviewed and are negative. Physical Exam Blood pressure 139/60, pulse 52, temperature 98 ??F (36.7 ??C), temperature source Oral, resp. rate16, height 5' 8 (1.727 m), weight 232 lb (105.2 kg), SpO2 95 %, not currently . Physical Exam Constitutional: She is oriented to person, place, and time. She appears well- developed and well-nourished. No distress. HENT: Mouth/Throat: Oropharynx is clear and moist. Eyes: Pupils are equal, round, and reactive to light. Conjunctivae and EOM are normal. Neck: Normal range of motion. Neck supple. Cardiovascular: Normal rate and regular rhythm. Exam reveals no gallop and no friction rub. No murmur heard. Pulmonary/Chest: Effort normal and breath sounds normal. No respiratory distress. She has no wheezes. Abdominal: Soft. She exhibits no distension. There is no tenderness. Musculoskeletal: She exhibits no edema. Lymphadenopathy: She has no cervical adenopathy. Neurological: She is alert and oriented to person, place, and time. Skin: Skin is warm and dry. No rash noted. Psychiatric: She has a normal mood and affect. Nursing note and vitals reviewed. Procedures Radiology/EKG/Labs: Results for orders placed or performed during the hospital encounter of 06/30/18 XR CHEST PA AND LATERAL Narrative PA AND LATERAL CHEST X-RAY, 06/30/2018 5:08 PM CLINICAL HISTORY: -CHEST PAIN -SHORTNESS OF BREATH COMPARISON: September 20, 2017 PROCEDURE COMMENTS: Frontal and lateral views of the chest. FINDINGS: Heart is normal size. Pulmonary vasculature is within normal limits. Suspect mild left basilar atelectasis. Lungs otherwise are clear, without pleural effusion or pneumothorax. Impression No acute finding. - - CBC WITH DIFF Result Value Ref Range WBC 6.2 4.0 - 11.0 x10(3)/mcL RBC 3.93 3.80 - 5.10 x10(6)/mcL Hgb 11.8 (L) 12.0 - 15.6 g/dL Hct 36.4 35.7 - 45.9 % MCV 92.6 82.5 - 99.8 fL MCH 30.0 27.0 - 34.3 pg MCHC 32.5 32.1 - 35.3 g/dL RDW 14.3 11.5 - 15.0 % Platelet 165 144 - 423 x10(3)/mcL MPV 9.8 6.8 - 10.8 fL Neut Percent 59.4 % Lymph Percent 27.6 % Moore Percent 7.2 % Eos Percent 5.2 % Baso Percent 0.6 % Neut # 3.7 1.8 - 7.7 x10(3)/mcL Lymph # 1.7 0.6 - 4.8 x10(3)/mcL Moore # 0.4 0.0 - 1.3 x10(3)/mcL Eos# 0.3 0.0 - 0.5 x10(3)/mcL Baso # 0.0 0.0 - 0.2 x10(3)/mcL BASIC METABOLIC PANEL Result Value Ref Range Sodium 143 136 - 145 mmol/L Potassium 4.7 3.5 - 5.0 mmol/L Chloride 103 98 - 107 mmol/L Total CO2 29 22 - 29 mmol/L Anion Gap 11 7 - 16 mmol/L Calcium 9.3 8.8 - 10.4 mg/dL Glucose Lvl 118 (H) 82 - 100 mg/dL BUN 26 (H) 8 - 23 mg/dL Creatinine 1.33 (H) 0.51 - 1.30 mg/dL GFR Afr Am 48 (L) >=60 mL/min/1.73 m2 GFR Non Afr Am 42 (L) >=60 mL/min/1.73 m2 TROPONIN-T HIGH SENSITIVITY Result Value Ref Range xp-dYnivpjtp-B 15 (H) <14 ng/L Narrative Ingestion of charles doses of biotin (>5 mg/day) taken within 8 hours of drawing blood sample can interfere with this immunoassay test. TROPONIN-T HIGH SENSITIVITY Result Value Ref Range pb-dNtjgqvoy-K 16 (H) <14 ng/L Narrative Ingestion of charles doses of biotin (>5 mg/day) taken within 8 hours of drawing blood sample can interfere with this immunoassay test. EK EKG 12 LEAD Impression [facility] Test Date: 2018-06-30 Pat Name: FABY PALM Department: [facility] Room: [facility] Gender: Female Telephone Lineman: [facility] : 1950 Requested By: YANG CARBAJAL Order Number: [id number] Reading MD: Herminio Avitia MD Measurements Intervals [place] Rate: 54 P: 85 MS: 166 QRS: QRSD: 88 T: 61 QT: 451 QTc: 428 Interpretive Statements SINUS BRADYCARDIA LOW QRS VOLTAGE IN PRECORDIAL LEADS ANTEROSEPTAL MYOCARDIAL INFARCTION, PROBABLY OLD INTERPRETATION BASED ON A DEFAULT AGE OF [address]-T wave abnormality Compared to previous EKG, no significant change. Correlate clinically. Electronically Signed On 06-30-2018 16:23:42 EDT by Herminio Avitia MD ED Course: Appropriate laboratory and radiology studies reviewed Patient's chest pain is atypical for ACS. His history more stress related. It is not worse with exertion and is not associated with nausea or diaphoresis. She has an unchanged EKG and 2 troponins are16 and 15, respectively. Chest pain has been resolved in the ED. Since her pain is atypical and troponins are negative and she had an angiogram last Wednesday followedby an admission for chest pain in September, the patient is to be admitted to the hospital. She can follow up with her primary care physician for reevaluation. If her condition worsens, she should return ED Clinical Impression: Atypical chest pain (primary encounter diagnosis) Critical Care time Condition at Discharge/Transfer from Department: Improved This chart was completed using voice recognition technology and may contain unintended errors Yang Valles MD 07/05/18 0741 documented in this encounter Plan of Treatment [...] Priority Date/Time Associated Diagnosis Comments SCANNED EKG 07/01/2018 10:44 AM EDT TROPONIN-T HIGH SENSITIVITY BASELINE W/ REFLEX Timed 06/30/2018 6:43 PM EDT XR CHEST PA AND LATERAL STAT 06/30/2018 5:08 PM EDT TROPONIN-T HIGH SENSITIVITY BASELINE W/ REFLEX STAT 06/30/2018 4:33 PM EDT CBC WITH DIFF STAT 06/30/2018 4:33 PM EDT BASIC METABOLIC PANEL STAT 06/30/2018 4:33 PM EDT SALINE LOCK IV STAT 06/30/2018 4:22 PM EDT EK EKG 12 LEAD STAT 06/30/2018 3:55 PM EDT documented in this encounter Results * SCANNED EKG (07/01/2018 10:44 AM EDT) Anatomical Region Laterality Modality Other 07/01/2018 10:4 4 AM EDT us Unknown Unknown IMG ECG ORDERABLES Final Result * (ABNORMAL) TROPONIN-T HIGH SENSITIVITY (06/30/2018 6:43 PM EDT) pf-eVqqavemo-G 16(H) <14 ng/L 06/30/2018 7:03 PM EDT [facility] Comment: See the website below for rule out NE care pathway, conditions other than AMI that can cause elevated hs cTnT, and comparison of values from the 4th and 5th generation Rob tests. [email or web address]/clinical-[email or web address] Blood VENOUS BLOOD / Unknown Venipuncture / Unknown 06/30/2018 6:43 PM EDT 06/30/2018 6:44 PM EDT Narrative [facility] - 06/30/2018 7:03 PM EDT Ingestion of charles doses of biotin (>5 mg/day) taken within 8 hours of drawing blood sample can interfere with this immunoassay test. us Yang Valles MD CHEMISTRY ORDERABLES Final Result [facility] [address] [place] [id number] * XR CHEST PA AND LATERAL (06/30/2018 5:08 PM EDT) Anatomical Region Laterality Modality Chest Radiographic Whit ging 06/30/2018 5:08 PM EDT Impressions 06/30/2018 5:15 PM EDT No acute finding. - - Narrative 06/30/2018 5:15 PM EDT PA AND LATERAL CHEST X-RAY, ??06/30/2018 5:08 PM CLINICAL HISTORY: ??-CHEST PAIN -SHORTNESS OF BREATH COMPARISON: ??September 20, 2017 PROCEDURE COMMENTS: Frontal and lateral views of the chest. FINDINGS: Heart is normal size. Pulmonary vasculature is within normal limits. Suspect mild left basilar atelectasis. Lungs otherwise are clear, without pleural effusion or pneumothorax. Procedure Note Juan Manuel Linares MD - 06/30/2018 PA AND LATERAL CHEST X-RAY, 06/30/2018 5:08 PM CLINICAL HISTORY: -CHEST PAIN -SHORTNESS OF BREATH COMPARISON: September 20, 2017 PROCEDURE COMMENTS: Frontal and lateral views of the chest. FINDINGS: Heart is normal size. Pulmonary vasculature is within normal limits.Suspect mild left basilar atelectasis. Lungs otherwise are clear, withoutpleural effusion or pneumothorax. IMPRESSION: No acute finding. - - us Yang Valles MD IMG DIAGNOSTIC IMAGI NG ORDERABLES Final Result * (ABNORMAL) TROPONIN-T HIGH SENSITIVITY (06/30/2018 4:33 PM EDT) Pathologist [facility] fv-nHdhgpjvd-J 15(H) <14 ng/L 06/30/2018 5:01 PM EDT [facility] Comment: See the website below for rule out NE care pathway, conditions other than AMI that can cause elevated hs cTnT, and comparison of values from the 4th and 5th generation Rob tests. [email or web address]://[email or web address]/clinical-[email or web address] Blood VENOUS BLOOD / Unknown Venipuncture / Unknown 06/30/2018 4:33 PM EDT 06/30/2018 4:36 PM EDT Narrative [facility] - 06/30/2018 5:01 PM EDT Ingestion of charles doses of biotin (>5 mg/day) taken within 8 hours of drawing blood sample can interfere with this immunoassay test. us Yang Valles MD CHEMISTRY ORDERABLES Final Result [facility] [address] [place] [address] * (ABNORMAL) BASIC METABOLIC PANEL (06/30/2018 4:33 PM EDT) [facility] Sodium 143 136 - 145 mmol/L 06/30/2018 5:00 PM EDT [facility] Potassium 4.7 3.5 - 5.0 mmol/L 06/30/2018 5:00 PM EDT [facility] Chloride 103 98 - 107 mmol/L 06/30/2018 5:00 PM EDT [facility] Total CO2 29 22 - 29 mmol/L [facility]/30/2018 [facility] Anion Gap 11 7 - 16 mmol/L 06/30/2018 [facility] Calcium 9.3 8.8 - 10.4 mg/dL 06/30/2018 5:00 PM EDT [facility] Glucose Lvl 118(H) 82 - 100 mg/dL 06/30/2018 5:00 PM [facility] BUN 26(H) 8 - 23 mg/dL 06/30/2018 5:00 PM [facility] Creatinine 1.33(H) 0.51 - 1.30 mg/dL 06/30/2018 5:00 PM T [facility] GFR Afr Am 48(L) >=60 mL/min/1.7 3 m2 06/30/2018 5:00 PM [facility] GFR Non Afr Am 42(L) >=60 mL/min/1.7 3 m2 06/30/2018 5:00 PM T [facility] Comment: This estimated GFR was calculated [...] VENOUS BLOOD / Unknown Venipuncture / Unknown 06/30/2018 4:33 PM EDT 06/30/2018 4:36 PM EDT us Yang Valles MD CHEMISTRY ORDERABLES Final Result [facility] [address] [facility] [place], [place] [address] * (ABNORMAL) CBC WITH DIFF (06/30/2018 4:33 PM EDT) WBC 6.2 4.0 - 11.0 x10(3)/mcL 06/30/2018 4:39 PM EDT [facility] RBC 3.93 3.80 - 5.10 x10(6)/mcL 06/30/2018 4:39 PM EDT [facility] Hgb 11.8(L) 12.0 - 15.6 g/dL 06/30/2018 4:39 PM EDT [facility] Hct 36.4 35.7 - 45.9 % 06/30/2018 4:39 PM EDT [facility] MCV 92.6 82.5 - 99.8 fL 06/30/2018 4:39 PM EDT [facility] MCH 30.0 27.0 - 34.3 pg 06/30/2018 4:39 PM EDT [facility] MCHC 32.5 32.1 - 35.3 g/dL 06/30/2018 4:39 PM EDT [facility] RDW 14.3 11.5 - 15.0 % 06/30/2018 4:39 PM EDT [facility] Platelet 165 144 - 423 x10(3)/mcL 06/30/2018 4:39 PM EDT [facility] MPV 9.8 6.8 - 10.8 fL 06/30/2018 4:39 PM EDT [facility] Neut Percent 59.4 % 06/30/2018 4:39 PM EDT [facility] Lymph Percent 27.6 % 06/30/2018 4:39 PM EDT [facility] Moore Percent 7.2 % 06/30/2018 4:39 PM EDT [facility] Eos Percent 5.2 % 06/30/2018 4:39 PM EDT [facility] Baso Percent 0.6 % 06/30/2018 4:39 PM EDT [facility] Neut # 3.7 1.8 - 7.7 x10(3)/mcL 06/30/2018 4:39 PM EDT [facility] Lymph # 1.7 0.6 - 4.8 x10(3)/mcL 06/30/2018 4:39 PM EDT [facility] Moore # 0.4 0.0 - 1.3 x10(3)/mcL 06/30/2018 4:39 PM EDT [facility] Eos# 0.3 0.0 - 0.5 x10(3)/mcL 06/30/2018 4:39 PM EDT [facility] Baso # 0.0 0.0 - 0.2 x10(3)/mcL 06/30/2018 4:39 PM EDT [facility] Blood VENOUS BLOOD / Unknown Venipuncture / Unknown 06/30/2018 4:33 PM EDT 06/30/2018 4:36 PM EDT us Yang Valles MD HEMATOLOGY ORDERABLE S Final Result [facility] [address] [place] [address] * EK EKG 12 LEAD (06/30/2018 3:55 PM EDT) Anatomical Region Laterality Modality Electrocardiogra phy 06/30/2018 3:51 PM EDT Impressions 06/30/2018 4:23 PM EDT ? [facility] ? Test Date: ?2018-06-30 Pat Name: ? FABY PALM ?Department: ?? DE[facility] ? Room: ? AC08 Gender: ? Female ? Telephone Lineman: ?? Murali : ?1950 ? Requested By: YANG VALLES SOLOOMN Order Number: [id number] ?Reading MD: ?? Herminio Avitia, MD ? Measurements Intervals ?[place] ? Rate: ? 54 ? P: ?85 MS: ? 166 ?QRS: ? QRSD: ? 88 ? T: ?61 QT: ? 451 ? QTc: ?428 ? Interpretive Statements SINUS BRADYCARDIA LOW QRS VOLTAGE IN PRECORDIAL LEADS ANTEROSEPTAL MYOCARDIAL INFARCTION, PROBABLY OLD INTERPRETATION BASED ON A DEFAULT AGE OF [address]-T wave abnormality Compared to previous EKG, no significant change. Correlate clinically. Electronically Signed On 06-30-2018 16:23:42 EDT by Herminio Avitia MD Narrative Procedure Note Herminio Avitia MD - 06/30/[address] [facility] Test Date: 2018-06-30 Pat Name: FABY PALM Department: [facility] Room: [facility] Gender: Female Telephone Lineman: [facility] : 1950 Requested By: YANG PRINGLE Order Number: [id number] Reading MD: Herminio Avitia MD Measurements Intervals [place] Rate: 54 P: 85 MS: 166 QRS: QRSD: 88 T: 61 QT: 451 QTc: 428 Interpretive Statements SINUS BRADYCARDIA LOW QRS VOLTAGE IN PRECORDIAL LEADS ANTEROSEPTAL MYOCARDIAL INFARCTION, PROBABLY OLD INTERPRETATION BASED ON A DEFAULT AGE OF [address]-T wave abnormality Compared to previous EKG, no significant change. Correlate clinically. Electronically Signed On 06-30-2018 16:23:42 EDT by Herminio Avitia MD us Yang Valles MD IMG ECG ORDERABLES F inal Result documented in this encounter Visit Diagnoses Diagnosis Atypical chest pain- Primary Other chest pain documented in this encounter Administered Medications Inactive Administered Medications - up to 1 most recent administrations Medication Order MAR Action Action Date Dose Rate Site fluconazole (DIFLUCAN) tablet 150 mg 150 mg, Oral, ONCE, 1 dose, On Francine 06/30/18 at 1945 Given 06/30/2018 8:10 PM EDT 150 mg ketorolac (TORADOL) injection 15 mg 15 mg, Intravenous, ONCE, 1 dose, On Francine 06/30/18 at 1630 Given 06/30/2018 4:28 PM EDT 15 mg sodium chloride 0.9 % 500 mL IV bolus Intravenous, ONCE, 1 dose, On Francine 06/30/18 at 1730, at 491.8 mL/hr IV Started 06/30/2018 5:27 PM EDT 491.8 mL/hr sodium chloride 0.9% IV line flush 50 mL 50 mL, Intravenous, at 999 mL/hr, PRN, Starting on Francine 06/30/18 at 1622, Until Wed07/01/18 at 0036, Line Care, Flush with 50 mL after IVPB to insure complete administration of the dose. May use the saline infusion to back flush IVPB tubing as needed., Use this order to document priming and flushing IV line after medication administration. sodium chloride 0.9% syringe 5-10 mL 5-10 mL, Intravenous, PRN, Starting on Francine 06/30/18 at 1622, Until Wed07/01/18 at 0036, Line Care, Flush with 5 mL saline pre/post IVP, and 5 mL prior to IVPB or blood product administration. Protocol for PERIPHERAL IV saline lock maintenance, flush with 3-5 mL saline syringe every 8 hours., Flush every shift or after IV medication documented in this encounter Active and Recently Administered Medications Times are shown in EDT. Scheduled Medication Order 06/28/2018 06/29/2018 06/30/2018 fluconazole (DIFLUCAN) tablet 150 mg (COMPLETED) 150 mg, Oral, ONCE, 1 dose, On Francine 06/30/18 at 1945 2009 (Given - Provid er: Camryn Rojas RN) ketorolac (TORADOL) injection 15 mg (COMPLETED) 15 mg, Intravenous, ONCE, 1 dose, On Francine 06/30/18 at 1630 1628 (Given - Provid er: Ximena Ng RN) sodium chloride 0.9 % 500 mL IV bolus (COMPLETED) Intravenous, ONCE, 1 dose, On Francine 06/30/18 at 1730, at 491.8 mL/hr 1727 (IV Started - P rovider: Ximena Ng RN)1830 (Stopped - Provider: Ximena Ng RN) PRN Medication Order 06/28/2018 06/29/2018 06/30/2018 sodium chloride 0.9% IV line flush 50 mL 50 mL, Intravenous, at 999 mL/hr, PRN, Starting on Francine 06/30/18 at 1622, Until Wed07/01/18 at 0036, Line Care, Flush with 50 mL after IVPB to insure complete administration of the dose. May use the saline infusion to back flush IVPB tubing as needed., Use this order to document priming and flushing IV line after medication administration. sodium chloride 0.9% syringe 5-10 mL 5-10 mL, Intravenous, PRN, Starting on Francine 06/30/18 at 1622, Until 07/01/18 at 0036, Line Care, Flush with 5 mL saline pre/post IVP, and 5 mL prior to IVPB or blood product administration. Protocol for PERIPHERAL IV saline lock maintenance, flush with 3-5 mL saline syringe every 8 hours., Flush every shift or after IV medication documented in this encounter Orders Medications Ordered That Gaurav ht Not Have Been Administered Count Last Ordered Date First Ordered Date sodium chloride 0.9% IV line flush 50 mL 1 06/30/2018 sodium chloride 0.9% syringe 5-10 mL 1 06/07 IV Count Last Ordered Date First Orde red Date SALINE LOCK IV 1 06/30/2018 documented in this encounter Additional Health Concerns Assessment Noted Time PHQ-9 Depression Total Score: 13 019 9:00 AM EST A fall risk assessment has been complete d for the patient 05/17/2018 8:17 AM EDT PHQ-2 Depression Total Score: 6 04/19/19 19 9:00 AM EST documented as of this encounter Care Teams Financial Service Representative Relationship Specialty Start Date End Date Sharee Segovia APRN [address] [place] [id number] PCP - General Nurse Practitioner-Family 09/21/16 documented as of this encounter
--- OUTSIDE RECORDS SUMMARY | 2024-02-16 14:51 | XMS_ITS | Encounter Summary ---
Author Organization [place] [address] Care Team Providers Care Dental Instructor Name Role Phone Sharee Segovia APRN Primary Care Provider [phone] [phone] Charity Last RN Unavailable Unavail able Reason for Visit * Reason Onset Date Comments Care Management - Chart Review 07/21/2018 Encounter Details Date Type Department Care Team (Late st Contact Info) Description 07/21/2018 Patient Outreach SEP Quality Transformation [address] [place] [address] Marisabel Lr, RN Care Management - Chart Review Social [...] Progress Notes * Marisabel Lr RN - 07/21/2018 8:34 AM EDT Patient discharged from [facility] with an EPIC risk of admission or ED visit score of > 80%. Routed [facility] Transition Team (CTT) for weekly follow-up. documented [...] documented as of this encounter Care Teams Dental Instructor Relationship Specialty Start Date End Date Sharee Segovia APRN [address] [place] [address] PCP - General Nurse Practitioner-Family 09/21/16 Charity Last RN Director Of Product Marketing Registered Nurse 07/21/18 07/21/18 documented as of this encounter
--- OUTSIDE RECORDS SUMMARY | 2024-02-16 14:51 | XMS_ITS | Encounter Summary ---
Author Organization [place] [place] [address] Care Team Providers Care Social Research Assistant Name Role Phone Sharee Segovia APRN Primary Care Provider [phone] [phone] Reason for Visit * Reason Comments Follow-up 6 mth f/u (Meds per verbal review) Coronary Artery Disease Hypertension * Office Visit (Routine) - Closed Specialty Diagnoses / Procedures Referred By Arsh t Referred To Contact Internal Medicine-Interventional Cardiology / Cardiology Diagnoses 6 mth f/u-labs prior Procedures OFFICE VISIT Sharee Segovia APRN [address] [place] [address] Phone: tel: fax: Bello Devries MD [address] [place] [address] Phone: tel: fax: Referral ID Status Reason Start Date Expiration Date Visits Re quested Visits Authorized [id number] Closed 04/25/2018 04/25/2019 99 99 Encounter Details Date Type Department Care Team (Late st Contact Info) Description 04/25/2018 1:00 PM EST Office Visit [facility] [address] [place] [address] Bello Devries MD [address] [place] [id number] Chronic diastolic CHF (congestive heart failure) (HCC) (Primary Dx); Essential hypertension; ASHD (arteriosclerotic heart disease); S/P ablation of atrial flutter; Old VA (myocardial infarction) Social History Tobacco Use Types Packs/Day Years [...] Sign Reading Time Taken Comments Blood Pressure 129/73 04/25/2018 1:23 PM EST Pulse 44 04/25/2018 1:23 PM EST Temperature - - Respiratory Rate - - Oxygen Saturation - - Inhaled Oxygen Concentration - - Weight 107.1 kg (236 lb 3.2 oz) 04/25/2018 1:23 PM EST Height 172.7 cm (5' 8 ) 04/25/2018 1:23 PM EST Body Mass Index 35.91 04/25/2018 1:23 PM EST documented in this encounter Functional Status * [...] Entry Date Author Yes 04/19/2018 9:02 AM EST Sharee Segovia APRN documented in this encounter Progress Notes * Bello Devries MD - 04/25/2018 1:00 PM EST Subjective: Patient ID: Faby Palm is a 67 y.o. female. Chief Complaint Patient presents with ??? Follow-up 6 mth f/u (Meds per verbal review) ??? Coronary Artery Disease ??? Hypertension Ms. Palm is here for a scheduled routine follow-up visit HPI None Their chronic cardiac conditions are: Problem List Cardiology Problems Essential hypertension Controlled at home ASHD (arteriosclerotic heart disease) No chest, shoulder, arm, back, or jaw pain. Chest pain at rest Chronic diastolic CHF (congestive heart failure) (HCC) Edema stable Urinary frequency and incontinence- stopped lasix. S/P ablation of atrial flutter Chest pain Old VA (myocardial infarction) History Smoking Status ??? Never Smoker Smokeless Tobacco ??? Never Used Current Outpatient Prescriptions Medication Sig Dispense Refill ??? acetaminophen 325 [...] MOUTH ONCE DAILY 30 Tab 1 ??? lisinopril (PRINIVIL;ZESTRIL) 20 mg Oral Tablet [...] mg by mouth daily (with breakfast). ??? metoprolol (LOPRESSOR) 25 mg Oral Tablet Take 25 mg by mouth 2 times daily. ??? nitroGLYCERIN (NITROSTAT) 0.4 mg SL Tablet, [...] times daily (before meals and nightly). ??? fUROsemide (LASIX) 20 mg Oral Tablet Take 20 mg by mouth daily. ??? lamoTRIgine (LAMICTAL) 100 mg Oral Tablet Take 50 mg by mouth 2 times daily. Takes 100 mg at night ??? lamoTRIgine (LAMICTAL) 25 mg Oral Tablet Take 1 Tab by mouth 2 times daily. (Patient not taking: Reported on 03/30/2018) 60 Tab 0 ??? traZODone (DESYREL) 50 mg Oral Tablet Take 1 Tab by mouth nightly. (Patient not taking: Reported on 03/30/2018) 30 Tab 2 No current facility-administered medications for this visit. Patients past medical, family and social histories were reviewed and updated. There were no changesexcept as noted. Review of Systems Constitution: Negative for weight gain and weight loss. HENT: Negative for nosebleeds. Eyes: Negative. Cardiovascular: Negative for chest pain and palpitations. Respiratory: Negative for shortness of breath. Endocrine: Negative for cold intolerance. Skin: Negative for color change. Musculoskeletal: Negative for joint pain. Gastrointestinal: Negative for nausea. Genitourinary: Negative for nocturia. Neurological: Negative for light-headedness. Psychiatric/Behavioral: Negative for substance abuse. Objective: Patient Vitals for the past 24 hrs: Pulse BP BP Location Patient Position 04/25/18 1323 (!) 44 129/73 Right arm Sitting Body mass index is 35.91 kg/m??. Physical Exam Constitutional: She appears healthy. HENT: Nose: No nasal discharge. Eyes: Conjunctivae are normal. Neck: No JVD present. Cardiovascular: Normal rate, regular rhythm, S1 normal, S2 normal and normal heart sounds. Exam reveals no S3. No murmur heard. Pulmonary/Chest: Breath sounds normal. She has no wheezes. She has no rales. Abdominal: She exhibits no distension. Musculoskeletal: She exhibits no edema. Neurological: She is alert. Skin: Skin is warm. No pallor. Relevant Studies ecg 8 18 SB at 40 No results found for this visit on 04/25/18. Lab Review Lab Results Component Value Date WBC 6.9 04/19/2018 HGB 12.0 04/19/2018 PLT 170 04/19/2018 Lab Results Component Value Date NA 144 04/19/2018 K 4.4 04/19/2018 GLU 116 (H) 04/19/2018 ALT 8 04/19/2018 ALKPHOS 172 (H) 04/19/2018 Lab Results Component Value Date TSH 2.130 04/19/2018 Lab Results Component Value Date CHOLESTEROL 116 04/19/2018 HDL 51 04/19/2018 LDLCALC 40 04/19/2018 TRIG 124 04/19/2018 Lab Results Component Value Date INR 1.22 (H) 09/21/2017 Assessment and Plan: Faby was seen today for follow-up, coronary artery disease and hypertension. Diagnoses and all orders for this visit: Chronic diastolic CHF (congestive heart failure) (HCC) Essential hypertension ASHD (arteriosclerotic heart disease) S/P ablation of atrial flutter Old VA (myocardial infarction) NSTEMI [facility] 07-24-17 ?? Ost RCA lesion 60% stenosed. ?? Mid RCA lesion 40% stenosed. ?? Mid LAD lesion 50% stenosed.FFR 0.82 ??Significant but not clearly flow limiting dz Ostial RCA of 50-70% - difficult to image due to angulation with FFR of 0.92 Mid LAD appearing 50% with FFR of 0.82 Normal LVEDP ?? -->??DAPT w ??Plavix/ASA ? CAD - Card cath (10/2016): 50-60% mid LAD, 50% ost RCA, pEF - managed medically - Nonischemic stress (04/2017) - continue Imdur, Ranexa ? Bradycardia ?? Hx Atrial Flutter - S/p AF ablation (2015) -remains SR-SB on tele No AC ?? Hypertension -continue amlodipine ?? Dyslipidemia -continue??statin ?? DM -per primary ??care? H/o CVA - Residual left hemiparesis -pt feels more weak all over today and trouble just trying to get up in bed -ASA, statin ?? Bradycardia - no symptoms. Will DC bblock. documented in this encounter Miscellaneous Notes * Patient Instructions - Brianne Bass MA - 04/25/2018 1:00 PM EST You may be contacted by phone, mail or e-mail for a patient satisfaction survey regarding your visit here today. We value your opinion and depend on your feedback to make improvements, if needed, andto provide you with the best possible experience while receiving high quality care. We appreciate you taking the time to complete this survey. BLOOD WORK INSTRUCTIONS Blood work needs to be completed one week prior to your six month follow up. Nothing to eat or drink for 10 to 12 hours the night prior to blood draw. May drink water prior to draw. You can have your labs done at any [facility] lab. Labs orders are in the computer. documented in this encounter Plan of Treatment Scheduled Orders Name Type Priority Associated Diagnoses Orde r Schedule LIPID PANEL REFLEX Lab Routine Chronic diastolic CHF (congestive heart failure) (HCC) Essential hypertension ASHD (arteriosclerotic heart disease) S/P ablation of atrial flutter Old VA (myocardial infarction) 1 Occurrences starting 04/25/2018 until 04/25/2019 documented as of this encounter Goals Goal [...] as of this encounter Visit Diagnoses Diagnosis Chronic diastolic CHF (congestive heart failure) (HCC)- Primary Essential hypertension Unspecified essential hypertension ASHD (arteriosclerotic heart disease) Coronary atherosclerosis of unspecified type of vessel, [place] or graft S/P ablation of atrial flutter Other postprocedural status Old VA (myocardial infarction) Old myocardial infarction documented in this encounter Discontinued Medications Medication Sig Discontinue Reason Start Date End Da te [id number]-G-idjsrrtiewjhk (ANTI-GAS ORAL) Take by mouth 3 times daily as needed. DELETE-Therapy completed 04/25/2018 pantoprazole (PROTONIX) 40 mg Oral Tablet, Delayed Release (E.C.) Take 40 mg by mouth. 2 tabs at bedtime DELETE-Duplicate 04/25/2018 UNABLE TO FINDIndications:NSTEMI (non-ST elevated myocardial infarction) (HCC),ASHD (arteriosclerotic heart disease),Essential hypertension,Chronic diastolic CHF (congestive heart failure) (HCC),Hyperlipidemia, unspecified hyperlipidemia type as needed. VALZACYCLOVIR HCL 1 GM DELETE-Therapy completed 04/25/2018 UNABLE TO FINDIndications:NSTEMI (non-ST elevated myocardial infarction) (HCC),ASHD (arteriosclerotic heart disease),Essential hypertension,Chronic diastolic CHF (congestive heart failure) (HCC),Hyperlipidemia, unspecified hyperlipidemia type as needed. HENTOLIN HFA 90 MCG DELETE- Entered in Error 04/25/2018 UNABLE TO FINDIndications:NSTEMI (non-ST elevated myocardial infarction) (HCC),ASHD (arteriosclerotic heart disease),Essential hypertension,Chronic diastolic CHF (congestive heart failure) (HCC),Hyperlipidemia, unspecified hyperlipidemia type 3 times daily as needed. HM ANTACID -ANTIGAS FILEMON 20 ML DELETE-Therapy completed 04/25/2018 metoprolol (LOPRESSOR) 25 mg Oral Tablet Take 25 mg by mouth 2 times daily. Cancelled by MD 04/25/2018 documented as of this encounter Historical Medications * This list may reflect changes made after this encounter. albuterol (PROVENTIL HFA; VENTOLIN HFA) 90 mcg/actuation Inhl HFA Aerosol InhalerIndication s:Chronic diastolic CHF (congestive heart failure) (HCC),Essential hypertension,ASHD (arteriosclerotic heart disease),S/P ablation of atrial flutter,Old VA (myocardial infarction) Inhale 2 Puffs into the lungs 0800, 1200, 1600, 2000. added in this encounter Additional Health Concerns Assessment Noted Time PHQ-9 Depression Total Score: 13 019 9:00 AM EST A fall risk assessment has been complete d for the patient 04/21/2017 10:52 AM EST PHQ-2 Depression Total Score: 6 04/19/19 19 9:00 AM EST documented as of this encounter Care Teams Social Research Assistant Relationship Specialty Start Date End Date Sharee Segovia APRN [address] [place] [address] PCP - General Nurse Practitioner-Family 09/21/16 documented as of this encounter
--- OUTSIDE RECORDS SUMMARY | 2024-02-16 14:51 | XMS_ITS | Encounter Summary ---
Author Organization [place] [address] Care Team Providers Care Penology Teacher Name Role Phone Sharee Segovia APRN Primary Care Provider [phone] Reason for Referral * Mammography (Routine) - Closed Specialty Diagnoses / Procedures Referred By Arsh patel Referred To Contact Radiology Diagnoses Encounter for screening mammogram for breast cancer Procedures MM MAMMO DIGITAL SCREENING W Sharee [place]os[place] APRN [address] [place] [address] Phone: tel: fax: Referral ID Status Reason Start Date Expiration Date Visits Re quested Visits Authorized [id number] Closed 04/19/2018 04/19/2020 1 1 Reason for Visit * Mammography (Routine) - Closed Specialty Diagnoses / Procedures Referred By Arsh patel Referred To Contact Radiology Diagnoses Encounter for screening mammogram for breast cancer Procedures MM MAMMO DIGITAL SCREENING W Sharee Hermosillo APRN [address] [place] [address] Phone: tel: fax: Referral ID Status Reason Start Date Expiration Date Visits Re quested Visits Authorized [id number] Closed 04/19/2018 04/19/2020 1 1 Encounter Details Date Type Department Care Team (Latest Contact Info) Description 07/25/2018 3:01 PM EDT - 07/25/2018 11:59 PM EDT Hospital Encounter [facility] [address] 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 30 Tab 02/23/2017 9 BASAGLAR KWIKPEN U-100 INSULIN 100 unit/mL (3 mL) SubQ Insulin Pen INJECT 36 UNITS UNDER THE SKIN DAILY AT BEDTIME 15 mL 3 07/18/2018 9 fUROsemide (LASIX) 20 mg Oral Tablet Take 20 mg by mouth daily. 9 insulin glargine U-100 (LANTUS) 100 unit/mL SubQ SolutionIndications: Well controlled type 2 diabetes mellitus with peripheral neuropathy ([facility]),Type 2 diabetes mellitus with stage 3 chronic kidney disease, with long-term current use of insulin ([facility]) 36 units sq nightly 10 mL 2 07/12/2018 9 isosorbide mononitrate (IMDUR) 120 mg Oral Tablet Sustained Release 24 hr Take 1 Tab by mouth daily. 30 Tab 3 07/20/2018 9 lisinopril (PRINIVIL;ZESTRIL) 20 mg Oral TabletIndications:NS NORMA (non-ST elevated myocardial infarction) ([facility]),ASHD (arteriosclerotic heart disease),Essential hypertension,Chronic diastolic CHF (congestive heart failure) ([facility]),Hyperlipidemia , unspecified hyperlipidemia type Take 20 [...] 0.4 mg SL Tablet, SublingualIndication s:Angina pectoris (HCC) Place 1 Tab under the tongue every 5 minutes as needed for Chest pain. 20 Tab 2 11/19/2016 9 omega-3 acid ethyl esters (LOVAZA) 1 gram Oral Capsule Take 1 g by mouth 2 times daily. 9 risperiDONE (RISPERDAL) 0.5 mg Oral Tablet Take 0.5 mg by mouth nightly. 9 traZODone (DESYREL) 50 mg Oral Tablet Take 3 Tabs by mouth nightly. 90 Tab 2 07/12/2018 9 documented as of this encounter Discharge Disposition Disposition Code Departure Means Destination Home or Self Care documented in this encounter Progress Notes * Sharee Segovia ARNP - 07/25/2018 5:26 PM EDT Mammogram is normal Repeat in 1-2 years documented in this encounter Plan of Treatment [...] Encounter for screening mammogram for breast cancer documented in this encounter Results * MM MAMMO DIGITAL SCREENING W CAD BILAT (07/25/2018 3:22 PM EDT) Anatomical Region Laterality Modality Breast Bilateral Mammography 07/25/2018 4:07 PM EDT Impressions 07/25/2018 4:07 PM EDT Negative ??([id number]) ~ RECOMMENDATION: Routine screening mammogram in 1 [...] for screening mammogram for malignant neoplasm of [id number] ~ MM MAMMO DIG SCREEN CAD BILAT [...] for screening mammogram for malignant neoplasm of [id number] ~ MM MAMMO DIG SCREEN CAD BILAT Bilateral CC and MLO view(s) were taken. There are scattered fibroglandular densities. Prior study comparison: No prior studies available for comparison. No mammographic evidence of malignancy. No suspicious calcifications. ~ IMPRESSION: Negative ([id number]-0) ~ RECOMMENDATION: Routine screening mammogram in 1 [...] was reviewed by a Radiologist and CAD. Sharee Segovia APRN IMG MAMMOGRAPHY ORDERABLE S Final Result documented in this encounter Visit Diagnoses Diagnosis Encounter for screening mammogram for breast cancer documented in this encounter Additional Health Concerns Assessment Noted Time PHQ-9 Depression Total Score: 13 019 9:00 AM EST A fall risk assessment has been complete d for the patient 05/17/2018 8:17 AM EDT PHQ-2 Depression Total Score: 6 04/19/19 19 9:00 AM EST documented as of this encounter Care Teams Penology Teacher Relationship Specialty Start Date End Date Sharee Segovia APRN [address] [place] [id number] PCP - General Nurse Practitioner-Family 09/21/16 documented as of this encounter
--- OUTSIDE RECORDS SUMMARY | 2024-02-16 14:51 | XMS_ITS | Encounter Summary ---
Author Organization [facility] [address] Care Team Providers Care Check Weigher Name Role Phone Sharee Segovia APRN Primary Care Provider [phone] Reason for Visit * Reason Onset Date Comments Other 07/12/2018 Encounter Details Date Type Department Care Team (Late st Contact Info) Description 07/12/2018 Telephone [facility]P [facility] [address] [place] [address] Sharee Segovia APRN [address] [place], [place] [id number] Other Social History Tobacco Use Types Packs/Day Years [...] Encounter - Sharee Segovia ARNP - 07/13/2018 8:54 AM EDT Spoke to Rafia who is the nurse at [facility] daily until 2 pm andhelps at her home living center. She had questions about the change in insulin dosage. Verified about increasing to 36 units Nurse states she has noticed an increase lately because she consuming a large amount of regular soft drinks. I also discussed with Rafia how much falling she is experiencing. The nurse states she does not fall at the day program but has had some falls at the home. They have been encouraging her to considermoving to as location that has more assisted living because where she is she is pretty much self-care for physical needs except for meals etc. patient is reluctant to move to a home in this area she is wanting to go to one in [place] which is closer to her family. The nurse states that her son is supposedly working on this. In the meantime I have ordered physical therapy to be done by the home health company to help with balance and strengthening. The nurse at the [facility] is supposed to keep in touch with us for any acuteneeds or decline in her health * Telephone Encounter - Deena Schmidt CCMA - 07/12/2018 1:56 PM EDT Karina notified * Telephone Encounter - Sharee Segovia ARNP - 07/12/2018 1:33 PM EDT I would like her to have 1200 mg a day of calcium and 600 units of vtiamin d a day. Or something similar. If there is a combined product that would be great. She can even have more vitamin D if thereis a combined product She has osteopenia Please call to pharmacy * Telephone Encounter - Deena Schmidt CCMA - 07/12/2018 1:03 PM EDT Please advise * Telephone Encounter - Debi Fowler - 07/12/2018 12:37 PM EDT The calcium that was sent in she would like to break up the dosage to bid. She said the body cannotabsorb that much calcium at once. What calcium supplement do you want. documented in this encounter Plan of Treatment [...] Component 6.6( 9 9:49 AM EST) No [place], Silva S, RMA documented as of this encounter Visit Diagnoses Not on filedocumented in this encounter Discontinued Medications Medication Sig Discontinue Reason Start Date End Da te [id number]-hst-piw g-bor (CALTRATE 600-D PLUS MINERALS) 600 mg calcium- 800 unit-50 mg Oral TabletIndications:Osteope arturo of multiple sites Take 2 Tabs by mouth every 24 hours. Dose adjustment 07/12/2018 07/12/2018 documented as of this encounter Additional Health Concerns Assessment Noted Time PHQ-9 Depression Total Score: 13 019 9:00 AM EST A fall risk assessment has been complete d for the patient 05/17/2018 8:17 AM EDT PHQ-2 Depression Total Score: 6 04/19/19 19 9:00 AM EST documented as of this encounter Care Teams Check Weigher Relationship Specialty Start Date End Date Sharee Segovia APRN [address] [place] [phone] PCP - General Nurse Practitioner-Family 09/21/16 documented as of this encounter
--- OUTSIDE RECORDS SUMMARY | 2024-02-16 14:51 | XMS_ITS | Encounter Summary ---
Author Organization [place] [address] Care Team Providers Care Regional Psychiatric Director Name Role Phone Sharee Segovia APRN Primary Care Provider [phone] [phone] Reason for Referral * Mammography (Routine) - Closed Specialty Diagnoses / Procedures Referred By Arsh patel Referred To Contact Radiology Diagnoses Encounter for screening mammogram for breast cancer Procedures MM MOBILE MAMMO DIGITAL SCREEN W CAD EMI Sharee Segovia APRN [address] [place] [address] Phone: tel: fax: Referral ID Status Reason Start Date Expiration Date Visits Re quested Visits Authorized [id number] Closed 07/12/2018 07/12/2020 1 1 * Home Health Care (Routine) - Closed Specialty Diagnoses / Procedures Referred By Arsh patle Referred To Contact Home Health Diagnoses Frequent falls General weakness Hemiparesis affecting left side as late effect of stroke (HCC) Sharee Segovia APRN [address] [place] [address] Phone: tel: fax: [facility] [address] [place] [address] Phone: tel: fax: Referral ID Status Reason Start Date Expiration Date V isits Requested Visits Authorized [id number] Closed Specialty Services Required 07/12/2018 07/12/2019 1 1 Comments [facility] Physician Certificate of Medical Necessity for Home Care Services Face to Face Encounter Home Health: Need for Home Health Services I certify that based on my findings: Home health services are medically necessary for this patient. This patient is homebound based on the following information:decreased strength, decreased endurance, requires frequent rest periods, unsteady gait and weakness. My clinical findings support the need for the above services because:strength and endurance training, home safety assessment and frequent falls. Recommended Nursing Services: Medication Management Therapies to Evaluate and Treat: Physical Therapy Agency Choice/Phone Number: Height: 5' 8 (172.7 cm) (07/12/18 1021) Weight: 223 lb (101.2 kg) (07/12/18 1021) Encounter Date and Reason for Encounter I certify that I, or a qualified hospitalist practitioner working with me, had a face to face encounter with this patient on the date indicated below due to the medical condition also listed below, which related to the primary reason the patient requires home health services. Encounter Date: 07/12/2018 Need for Home Health Services I certify that based on my findings: A. Home health services are medically necessary for this patient due to the following medical conditions: Patient Active Problem List: History of CVA with residual deficit Essential hypertension Gastrointestinal hemorrhage associated with gastroduodenitis Hemiparesis affecting left side as late effect of stroke ([facility]) ELIU (iron deficiency anemia) Chest pain at rest ASHD (arteriosclerotic heart disease) Chronic diastolic CHF (congestive heart failure) (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) Mood disorder ([facility]) Recurrent major depressive disorder, in partial remission ([facility]) Schizoaffective disorder, depressive type ([facility]) Intellectual disability Chest pain Positive occult stool blood test Mammogram declined [place] (myocardial infarction) Osteopenia of multiple sites Severe obesity (BMI 35.0-35.9 with comorbidity) ([facility]) I certify that this patient is under my care, or has been referred to another physician having professional knowledge of the patient's condition. Services ordered above are needed to treat condition for which patient was hospitalized and/or seen in the office. The composed above information is based on my clinical judgment relating to this patient's medical condition. 07/12/2018 The information requested on this form is mandated by the Affordable Care Act, effective March. Home Care services cannot be provided to the patient without completion of this document. The Plan of Care will be forwarded to the patient's primary physician for approval after services have commenced. A hospitalist or covering physician may certify home care even if they will not be caring for the patient after discharge. Reason for Visit * Reason Comments Diabetes Pt sts today is to carmine birch up on Dm and she sts that she has been having 200 reading. Enuresis Pt sts that the medi cation for her bladder is workig wonders Fall Pt sts that she has been having falling spells when she stands for certain length of time Results discuss Dexa scan re cruz, pt sts that she is taking vit d and calcium but does not know how much . Encounter Details Date Type Department Care Team (Late st Contact Info) Description 07/12/2018 10:00 AM EDT Office Visit [facility] [place] [facility] [address] [place] [address] Sharee Segovia, TEXTILE EXAMINER [address] [place] [address] Frequent falls (Primary Dx); Severe obesity (BMI 35.0-35.9 with comorbidity) (HCC) (HCC); General weakness; 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); Type 2 diabetes mellitus with stage 3 chronic kidney disease, with long-term current use of insulin (HCC); Schizoaffective disorder, depressive type (HCC); Recurrent major depressive disorder, in partial remission (HCC); Osteopenia of multiple sites; Hemiparesis affecting left side as late effect of stroke (HCC); Encounter for screening mammogram for breast cancer Social History Tobacco Use Types Packs/Day Years [...] Sign Reading Time Taken Comments Blood Pressure 122/70 07/12/2018 10:21 AM EDT Pulse 89 07/12/2018 10:21 AM EDT Temperature 36.8 ??C (98.2 ??F) 07/12/2018 10:21 AM E DT Respiratory Rate 16 07/12/2018 10:21 AM EDT Oxygen Saturation 98% 07/12/2018 10:21 AM EDT Inhaled Oxygen Concentration - - Weight 101.2 kg (223 lb) 07/12/2018 10:21 AM EDT Height 172.7 cm (5' 8 ) 07/12/2018 10:21 AM EDT Body Mass Index 33.91 07/12/2018 10:21 AM EDT documented in this encounter Functional [...] Refills Last Filled Start Date End Date traZODone (DESYREL) 50 mg Oral Tablet Take 3 Tabs by mouth nightly. 90 Tab 2 07/12/2018 9 insulin glargine U-100 (LANTUS) 100 unit/mL SubQ SolutionIndication s: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),Type 2 diabetes mellitus with stage 3 chronic kidney disease, with long-term current use of insulin ([facility]) 36 units sq nightly 10 mL 2 07/12/2018 9 [id number] (CALTRATE 600-D PLUS MINERALS) 600 mg calcium- 800 unit-50 mg Oral TabletIndications: Osteopenia of multiple sites Take 2 Tabs by mouth every 24 hours. 60 Tab 11 07/12/2018 9 documented in this encounter Progress Notes * Sharee Segovia ARNP - 07/12/2018 10:00 AM EDT Assessment Diagnoses and all orders for this visit: Frequent falls Comments: refer to PT for balance and strengthening Orders: - AMB REFERRAL TO HOME HEALTH Severe obesity (BMI 35.0-35.9 with comorbidity) ([facility]) (Chronic) Comments: weight loss advised Overview: --BMI 36.34 with diabetes in problem list General weakness Comments: PT for balance and strengthening Orders: - AMB REFERRAL TO HOME HEALTH Well controlled type 2 diabetes mellitus with peripheral neuropathy ([facility]) (Chronic) Comments: Increase insulin by 4 units if stays above 200 to increase another 2 units Orders: - insulin glargine U-100 (LANTUS) 100 unit/mL SubQ Solution; 36 units sq nightly Dispense: 10 mL; Refill: 2 Type 2 diabetes mellitus with stage 3 chronic kidney disease, with long-term current use of insulin([facility]) (Chronic) Comments: Increase insulin by 4 units, follow-up if not improved Orders: - insulin glargine U-100 (LANTUS) 100 unit/mL SubQ Solution; 36 units sq nightly Dispense: 10 mL; Refill: 2 Schizoaffective disorder, depressive type ([facility]) (Chronic) Comments: managed by Kylah Espinoza, stable Recurrent major depressive disorder, in partial remission ([facility]) (Chronic) Comments: stable, managed by kylah espinoza Osteopenia of multiple sites Comments: start calcium and vitamin d Hemiparesis affecting left side as late effect of stroke (HCC) (Chronic) - AMB REFERRAL TO HOME HEALTH Encounter for screening mammogram for breast cancer Comments: agreeable for mammogram Orders: - MM MOBILE MAMMO DIGITAL SCREEN W CAD EMI; Future Other orders - traZODone (DESYREL) 50 mg Oral Tablet; Take 3 Tabs by mouth nightly. Dispense: 90 Tab; Refill: 2 Progress Note: Vitals: 07/12/18 1021 BP: 122/70 Pulse: 89 Resp: 16 Temp: 98.2 ??F (36.8 ??C) TempSrc: Temporal SpO2: 98% Weight: 223 lb (101.2 kg) Height: 5' 8 (1.727 m) Chief Complaint Patient presents with ??? Diabetes Pt sts today is to follow up on Dm and she sts that she has been having 200 reading. ??? Enuresis Pt sts that the medication for her bladder is workig wonders ??? Fall Pt sts that she has been having falling spells when she stands for certain length of time ??? Results discuss Dexa scan results, pt sts that she is taking vit d and calcium but does not know how much . HPI: Diabetes: Home reporting of sugars was reviewed at time of visit. Consistently above 200, BS are running consistent with A1c. Pt denies episodes of hypo or hyperglycemia. Faby does not report any new symptoms of possible diabetes sequelae. After last visit we increased insulin by two units with no significant change noticed. Exercise - none Antiplatelet Therapy - (goals: 75-162 mg/day for increased risk, men >50, women >60, with oneadditional risk factor - smoking, htn, obesity, albuminuria, fmhx) Patient does have aspirin or other antiplatelet agent listed on medication list. If not, encouragedto start taking and if taking, added to med list. Fungal rash under her breast and abdominal folds is improved with topical Recently started on Ditropan which is improved her bladder stress incontinence She continues to go to [facility] for counseling. States her mood is up and down but no thoughts of hurting herself or others. Overall she feels it is fairly stable She did have a recent ER visit for chest pain that was thought to be noncardiac related. DEXA bone scan was consistent with osteopenia. Will suggest calcium and vitamin D Patient does admit to frequent falling with most recent fall last night. She states she loses her strength in her legs for any standing of extended period of time. She denies dizziness. She is statuspost CVA with some weakness. Review of Systems Respiratory: Negative for chest tightness and shortness of breath. Cardiovascular: Negative for chest pain and palpitations. Neurological: Positive for weakness. Negative for dizziness and headaches. Physical Exam NAD, overweight, cheerful. PERRL, ANICTERIS EOMI CTA B RR no murmur No C/C/E ABDOMEN SOFT WITH POS BS, NONTENDER Non focal neuro exam Mild erythema under breast and abdominal fold. GAIT unSTEADY, POSTURE ERECT but leaning over walker. Mild left sided hand weakness. See time date stamps in the EMR for other pertinent history components reviewed as part of today's encounter. [facility] Documentation Medication Compliance: Compliant most of the time Understanding of Current Medications: Fair Medication Compliance Barriers: None or N/A Self-Management Ability: Fair Willingness to Adopt Healthy Behaviors: Fair Potential Barriers to completing treatment plans today: Cognitive [facility] Flowsheet was completed/reviewed as part of today's visit. Educated patient regarding the diagnosis, medication/treatment, goals, self- management tools and instructions based on their care plan. They verbalized understanding of the education given on the After Visit Summary [AVS] for today's visit. A copy of the AVS was provided either in writing and/or via [employer]. A new medicine was prescribed during this [...] and answered accordingly. documented in this encounter Plan of Treatment Scheduled Orders Name Type Priority Associated Diagnoses Orde r Schedule MM MOBILE MAMMO DIGITAL SCREEN W CAD EMI Imaging Routine Encounter for screening mammogram for breast cancer 1 Occurrences starting 07/12/2018 until 07/12/2020 Scheduled Referrals Name Type Priority Associated Diagnoses Orde r Schedule AMB REFERRAL TO HOME HEALTH Outpatient Referral Routine Frequent falls General weakness Hemiparesis affecting left side as late effect of stroke (HCC) Ordered: 07/12/2018 documented as of this encounter Goals Goal [...] as of this encounter Visit Diagnoses Diagnosis Frequent falls- Primary Personal history of fall Severe obesity (BMI 35.0-35.9 with comorbidity) (HCC) Obesity, unspecified General weakness Other malaise and fatigue 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) Type II or unspecified type diabetes mellitus with neurological manifestations, not stated as uncontrolled Type 2 diabetes mellitus with stage 3 chronic kidney disease, with long-term current use of insulin (HCC) Schizoaffective disorder, depressive type (HCC) Schizoaffective disorder, unspecified condition Recurrent major depressive disorder, in partial remission (HCC) Osteopenia of multiple sites Hemiparesis affecting left side as late effect of stroke (HCC) Hemiplegia affecting unspecified side, late effect of cerebrovascular disease Encounter for screening mammogram for breast cancer documented in this encounter Discontinued Medications Medication Sig Discontinue Reason Start Date End Da te insulin glargine U-100 (LANTUS) 100 unit/mL SubQ SolutionIndications: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),Type 2 diabetes mellitus with stage 3 chronic kidney disease, with long-term current use of insulin (HCC) 32 units sq nightly Dose adjustment 06/14/2018 019 traZODone (DESYREL) 50 mg Oral Tablet Take 2 Tabs by mouth nightly. Reorder 06/14/2018 07/12/2018 documented as of this encounter Additional Health Concerns Assessment Noted Time PHQ-9 Depression Total Score: 13 019 9:00 AM EST A fall risk assessment has been complete d for the patient 05/17/2018 8:17 AM EDT PHQ-2 Depression Total Score: 6 04/19/19 19 9:00 AM EST documented as of this encounter Care Teams Regional Psychiatric Director Relationship Specialty Start Date End Date Sharee Segovia APRN [address] [place] [phone] PCP - General Nurse Practitioner-Family 09/21/16 documented as of this encounter
--- OUTSIDE RECORDS SUMMARY | 2024-02-16 14:51 | XMS_ITS | Encounter Summary ---
Author Organization [place] [address] Care Team Providers Care Medical Artist Name Role Phone Sharee Segovia APRN Primary Care Provider [phone] Reason for Referral * DEXA (Routine) - Closed Specialty Diagnoses / Procedures Referred By Arsh patel Referred To Contact Radiology Diagnoses Menopause Procedures DX BONE DENSITY AXIAL SKELETON Sharee Segovia APRN [address] [place] [address] Phone: tel: fax: Referral ID Status Reason Start Date Expiration Date Visits Re quested Visits Authorized [id number] Closed 06/14/2018 06/14/2019 1 1 Reason for Visit * DEXA (Routine) - Closed Specialty Diagnoses / Procedures Referred By Arsh patel Referred To Contact Radiology Diagnoses Menopause Procedures DX BONE DENSITY AXIAL SKELETON Sharee Segovia APRN [address] [place] [address] Phone: tel: fax: Referral ID Status Reason Start Date Expiration Date Visits Re quested Visits Authorized [id number] Closed 06/14/2018 06/14/2019 1 1 Encounter Details Date Type Department Care Team (Late st Contact Info) Description 07/05/2018 2:26 PM EDT - 07/05/2018 11:59 PM EDT Hospital Encounter [facility] [address] [place] [id number] Sharee Segovia APRN [address] [place] [address] Menopause Discharge Disposition: Home or Self Care Social [...] (arteriosclerotic heart disease),S/P ablation of atrial flutter,[place] (myocardial infarction) Inhale 2 Puffs into the [...] type Take 50 mg by mouth daily chief concierge. And Takes 100 mg at night pantoprazole [...] Oral TabletIndications:NS NORMA (non-ST elevated myocardial infarction) ([facility]),ASHD (arteriosclerotic heart disease),Essential hypertension,Chronic diastolic CHF (congestive heart failure) ([facility]),Hyperlipidemia , unspecified hyperlipidemia type Take 20 mg [...] 0.4 mg SL Tablet, SublingualIndication s:Angina pectoris ([facility]) Place 1 Tab under the tongue every [...] or Self Care documented in this encounter Plan of Treatment [...] Procedure Name Priority Date/Time Associated Diagnosis Comments DX BONE DENSITY AXIAL SKELETON Routine 07/05/2018 3:04 PM EDT Menopause documented in this encounter Results * DX BONE DENSITY AXIAL SKELETON (07/05/2018 3:04 PM EDT) Anatomical Region Laterality Modality Dexa Scan 07/05/2018 Narrative 07/06/2018 12:03 PM EDT Indication: The patient is a female age 65 or older who requires a bone density assessment. Study was performed on Sonar.me 5. Bone Density: Region ?BMD ? T-score [...] Segovia APRN IMG DEXA ORDERABLES Final Result documented in this encounter Visit Diagnoses Diagnosis Menopause Symptomatic menopausal or female climacteric states documented in this encounter Additional Health Concerns Assessment Noted Time PHQ-9 Depression Total Score: 13 019 9:00 AM EST A fall risk assessment has been complete d for the patient 05/17/2018 8:17 AM EDT PHQ-2 Depression Total Score: 6 04/19/19 19 9:00 AM EST documented as of this encounter Care Teams Medical Artist Relationship Specialty Start Date End Date Sharee Segovia APRN [address] [place] [address] PCP - General Nurse Practitioner-Family 09/21/16 documented as of this encounter
--- OUTSIDE RECORDS SUMMARY | 2024-02-16 14:51 | XMS_ITS | Encounter Summary ---
Author Organization [place] [address] Care Team Providers Care Movie Extra Name Role Phone Sharee Segovia APRN Primary Care Provider [phone] [phone] Charity Last RN Unavailable Unavail able Reason for Visit * Reason Onset Date Comments Hospital Follow Up 07/21/2018 Chest Pain Encounter Details Date Type Department Care Team (Late st Contact Info) Description 07/21/2018 Patient Outreach [facility] [address] [place] [address] Charity Last, RN Hospital Follow Up (Chest Pain) Social History Tobacco Use Types Packs/Day Years [...] Assessment Author No 04/19/2018 9:02 AM EST Segovia, Sharee, PLUMBER HELPER * Does this person have serious difficulty walking or climbing stairs? Answer Date of Assessment Author Yes 04/19/2018 9:02 AM Sharee García APRN * Does this person have difficulty dressing or bathing? Answer Date of Assessment Author Yes 04/19/2018 9:02 AM Sharee García, PLUMBER HELPER * Because of a physical, mental or [...] Progress Notes * Charity Last RN - 07/21/2018 9:53 AM EDT nurse Rafia at [facility] returned call. [facility] and [facility]. Nurse schedules appts and arranges transportation. Kika she had pts discharge paperwork. Assisted with scheduling follow up with PCP. Advised to contact PCPs office with any concerns. CTT will no longer follow as pt has daily nursing supervision. * Charity Last RN - 07/21/2018 9:42 AM EDT Contacted [facility] penitentiary where pt resides. Spoke with Janeen pt advocate who will have Rafia lange return CCs call. documented in this encounter Miscellaneous Notes * Telephone Encounter - Katheryn Allen RN - 07/22/2018 12:19 PM EDT Noted. Office CC/RN familiar with the patient, office CC/RN has followed her in the past & talked to the [facility] facility, where the patient resides at. [facility] [place] [facility] Office CC/RN can reach out to the patient & the person bringing her in that day to Follow-up as well & make sure they have the Office CC/RN contact information as well if needed. documented in this encounter Plan of [...] documented as of this encounter Care Teams Movie Extra Relationship Specialty Start Date End Date Sharee Segovia APRN [address] [place] [id number] PCP - General Nurse Practitioner-Family 09/21/16 Charity Last RN Director Of Assessment Registered Nurse 07/21/18 07/21/18 documented as of this encounter
--- OUTSIDE RECORDS SUMMARY | 2024-02-16 14:51 | XMS_ITS | Encounter Summary ---
Author Organization [place] [address] Care Team Providers Care Band Saw Operator Cake Cutting Name Role Phone Sharee Segovia APRN Primary Care Provider [phone] Reason for Referral * DEXA (Routine) - Closed Specialty Diagnoses / Procedures Referred By Arsh patel Referred To Contact Radiology Diagnoses Menopause Procedures DX BONE DENSITY AXIAL SKELETON Sharee Segovia APRN [address] [place] [address] Phone: tel: fax: Referral ID Status Reason Start Date Expiration Date Visits Re quested Visits Authorized [id number] Closed 06/14/2018 06/14/2019 1 1 Reason for Visit * Reason Comments Follow-up On Intertrigo, incon tinence , and depression. . Pt sts that she is still having issues with the yeast infection . pt sts that she used all the medication. Drooling Pt sts that she has been noticing in the last month that she has been drooling a lot , will happen at random times. happens on the left side , no numbness or tingling . Encounter Details Date Type Department Care Team (Late st Contact Info) Description 06/14/2018 9:20 AM EDT Office Visit [facility] [place] [address] 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) (Primary Dx); Type 2 diabetes mellitus with stage 3 chronic kidney disease, with long-term current use of insulin (HCC); Postural urinary incontinence; Schizoaffective disorder, depressive type (HCC); Intertrigo; Heel ulceration, left, limited to breakdown of skin (HCC); Menopause; Encounter for screening mammogram for breast cancer [...] Sign Reading Time Taken Comments Blood Pressure 130/84 06/14/2018 9:23 AM EDT Pulse 86 06/14/2018 9:23 AM EDT Temperature 36.3 ??C (97.3 ??F) 06/14/2018 9:23 AM ED T Respiratory Rate 20 06/14/2018 9:23 AM EDT Oxygen Saturation 97% 06/14/2018 9:23 AM EDT Inhaled Oxygen Concentration - - Weight 108.4 kg (239 lb) 06/14/2018 9:23 AM EDT Height 172.7 cm (5' 8 ) 06/14/2018 9:23 AM EDT Body Mass Index 36.34 06/14/2018 9:23 AM EDT documented in this encounter Functional [...] Refills Last Filled Start Date End Date miconazole (MICOTIN) 2 % Top CreamIndications:I ntertrigo Apply topically 2 times daily. Please dispense largest available tube 140 g 1 06/14/2018 9 oxybutynin (DITROPAN-XL) 10 mg Oral Tablet Extended Rel 24 hrIndications:Post ural urinary incontinence Take 1 Tab by mouth daily. 30 Tab 2 06/14/2018 9 traZODone (DESYREL) 50 mg Oral Tablet Take 2 Tabs by mouth nightly. 30 Tab 2 06/14/2018 9 insulin glargine U-100 (LANTUS) 100 unit/mL SubQ SolutionIndication s: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),Type 2 diabetes mellitus with stage 3 chronic kidney disease, with long-term current use of insulin (HCC) 32 units sq nightly 10 mL 2 06/14/2018 9 documented in this encounter Progress Notes * Sharee Segovia ARNP - 06/14/2018 9:20 AM EDT Assessment Diagnoses and all orders for this visit: 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) (Chronic) Comments: Increase insulin by 2 units Orders: - insulin glargine U-100 (LANTUS) 100 unit/mL SubQ Solution; 32 units sq nightly Dispense: 10 mL; Refill: 2 Type 2 diabetes mellitus with stage 3 chronic kidney disease, with long-term current use of insulin([facility]) (Chronic) Comments: Increase insulin by 2 units, follow-up if not improved Orders: - insulin glargine U-100 (LANTUS) 100 unit/mL SubQ Solution; 32 units sq nightly Dispense: 10 mL; Refill: 2 Postural urinary incontinence Comments: Try Ditropan for urge component, needs evaluation by urogynecology Orders: - oxybutynin (DITROPAN-XL) 10 mg Oral Tablet Extended Rel 24 hr; Take 1 Tab by mouth daily. Dispense: 30 Tab; Refill: 2 Schizoaffective disorder, depressive type ([facility]) (Chronic) Comments: Managed by Jimbo shepherd Intertrigo Comments: multiple drug interactions with oral fungal. will try topicals. keep dry, personal hygiene reinforced Orders: - miconazole (MICOTIN) 2 % Top Cream; Apply topically 2 times daily. Please dispense largest available tube Dispense: 140 g; Refill: 1 Heel ulceration, left, limited to breakdown of skin ([facility]) (Chronic) Comments: Monitored and cared for by podiatry Menopause Comments: DEXA scan ordered Orders: - DX BONE DENSITY AXIAL SKELETON; Future Encounter for screening mammogram for breast cancer Comments: Refuses mammogram, mobile mammogram van is in the office today and refuses to have it completed Other orders - traZODone (DESYREL) 50 mg Oral Tablet; Take 2 Tabs by mouth nightly. Dispense: 30 Tab; Refill: 2 Progress Note: Vitals: 06/14/18 0923 BP: 130/84 Pulse: 86 Resp: 20 Temp: 97.3 ??F (36.3 ??C) TempSrc: Temporal SpO2: 97% Weight: 239 lb (108.4 kg) Height: 5' 8 (1.727 m) Chief Complaint Patient presents with ??? Follow-up On Intertrigo, incontinence , and depression. . Pt sts that she is still having issues with the yeast infection . pt sts that she used all the medication. ??? Drooling Pt sts that she has been noticing in the last month that she has been drooling a lot , will happen at random times. happens on the left side , no numbness or tingling . HPI: Patient here for follow-up. She was seen a month ago and was referred to urogynecology for mixed incontinence. She has not madethat follow-up call. Transportation is difficult to visits due to her location. We will try medications States she is out of her fungal cream medicine for her skin. She did have improvement while using it. Reinforced needs to be kept dry. She was seen last week at [facility] and medications were increased for her depression. She is not sure what medicine was increased. States her mood is stable Faby states her blood sugars have been running in the 200s. She is hesitant to increase her metformin due to previous diarrhea. Will increase her insulin. Review of Systems Respiratory: Positive for chest tightness and shortness of breath. Cardiovascular: Negative for chest pain and palpitations. Genitourinary: Positive for frequency. Negative for difficulty urinating. Neurological: Positive for dizziness. Negative for headaches. Psychiatric/Behavioral: Positive for agitation. The patient is nervous/anxious. Physical Exam NAD PERRL, ANICTERIS EOMI CTA B RR no murmur No C/C/E ABDOMEN SOFT WITH POS BS, NONTENDER Non focal neuro exam Deep pink beefy rash in lower abdominal fold GAIT STEADY, POSTURE ERECT See time date stamps in the EMR for other pertinent history components reviewed as part of today's encounter. LOCATED [facility]IN [facility] Documentation Medication Compliance: Compliant most of the time Understanding of Current Medications: Fair Medication Compliance Barriers: None or N/A Self-Management Tools: Home blood pressure monitoring, Home weight monitoring, Home glucometer Self-Management Ability: Fair Willingness to Adopt Healthy Behaviors: Fair Potential Barriers to completing treatment plans today: Cognitive LOCATED WITHIN [facility] Flowsheet was completed/reviewed as part of today's visit. Educated patient regarding the diagnosis, medication/treatment, goals, self- management tools and instructions based on their care plan. They verbalized understanding of the education given on the After Visit Summary [AVS] for today's visit. A copy of the AVS was provided either in writing and/or via [employer]. A new medicine was prescribed during this [...] Patient Instructions - Sharee Segovia ARNP - 06/14/2018 9:20 AM EDT Call uro gynecology for an appt: [phone] documented in this encounter Plan of Treatment [...] Mathew RMA documented as of this encounter Results * DX BONE DENSITY AXIAL SKELETON (07/05/2018 3:04 PM EDT) Anatomical Region Laterality Modality Dexa Scan 07/05/2018 Narrative 07/06/2018 12:03 PM EDT Indication: The patient is a female age 65 or older who requires a bone density assessment. Study was performed on [facility]. Bone Density: Region ?BMD ? T-score [...] PA-C, CCD on 07/05/2018 3:35:00 PM. Sharee Juliette HEEL SLICKER IMG DEXA ORDERABLES Final Result documented in this encounter Visit Diagnoses Diagnosis 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)- Primary Type II or unspecified type diabetes mellitus with neurological manifestations, not stated as uncontrolled Type 2 diabetes mellitus with stage 3 chronic kidney disease, with long-term current use of insulin (HCC) Postural urinary incontinence Schizoaffective disorder, depressive type (HCC) Schizoaffective disorder, unspecified condition Intertrigo Other specified erythematous condition Heel ulceration, left, limited to breakdown of skin (HCC) Menopause Symptomatic menopausal or female climacteric states Encounter for screening mammogram for breast cancer Menopause Symptomatic menopausal or female climacteric states documented in this encounter Discontinued Medications Medication Sig Discontinue Reason Start Date End Da te insulin glargine (LANTUS) 100 unit/mL SubQ SolutionIndications:Wel l controlled type 2 diabetes mellitus with peripheral neuropathy (HCC),Type 2 diabetes mellitus with stage 3 chronic kidney disease, with long-term current use of insulin (HCC) 30 units sq nightly Reorder 08/09/2017 019 traZODone (DESYREL) 50 mg Oral TabletIndications:Insom arturo, persistent Take 1 Tab by mouth nightly. Reorder 08/09/2017 06/14/2018 miconazole (MICOTIN) 2 % Top CreamIndications:Intert mayito Apply topically 2 times daily. Reorder 05/17/2018 06/14/2018 lamoTRIgine (LAMICTAL) 25 mg Oral Tablet Take 1 Tab by mouth 2 times daily. Dose adjustment 05/12/2017 06/14/2018 documented as of this encounter Additional Health Concerns Assessment Noted Time PHQ-9 Depression Total Score: 13 019 9:00 AM EST A fall risk assessment has been complete d for the patient 05/17/2018 8:17 AM EDT PHQ-2 Depression Total Score: 6 04/19/19 19 9:00 AM EST documented as of this encounter Care Teams Band Saw Operator Cake Cutting Relationship Specialty Start Date End Date Sharee Segovia APRN [address] [place] [address] PCP - General Nurse Practitioner-Family 09/21/16 documented as of this encounter
--- OUTSIDE RECORDS SUMMARY | 2024-02-16 14:51 | XMS_ITS | Encounter Summary ---
Author Organization [place] [address] Care Team Providers Care Oracle Applications Developer Name Role Phone Sharee Segovia APRN Primary Care Provider [phone] Reason for Referral * Consultation (Routine) - Closed Specialty Diagnoses / Procedures Referred By Arsh patel Referred To Contact Gynecology Diagnoses Stress incontinence of urine Sharee Segovia APRN [address] [place] [address] Phone: tel: fax: [facility] [address] [place] [address] Phone: tel: fax: Referral ID Status Reason Start Date Expiration Date Visits Re quested Visits Authorized [id number] Closed 05/17/2018 05/17/2019 1 99 Reason for Visit * Reason Comments Follow-up Depression Pt sts that she is s till having issues with her depression. Vaginitis 2 weeks has not used anything to help. Encounter Details Date Type Department Care Team (Late st Contact Info) Description 05/17/2018 8:00 AM EDT Office Visit [facility] [place] [address] 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) (Primary Dx); Stress incontinence of urine; Schizoaffective disorder, depressive type (HCC); Intertrigo; Recurrent major depressive disorder, in partial remission (HCC); Chest pain at rest Social History Tobacco Use Types Packs/Day Years [...] Sign Reading Time Taken Comments Blood Pressure 120/82 05/17/2018 8:22 AM EDT Pulse 52 05/17/2018 8:22 AM EDT Temperature 36.8 ??C (98.3 ??F) 05/17/2018 8:22 AM ED T Respiratory Rate 16 05/17/2018 8:22 AM EDT Oxygen Saturation 98% 05/17/2018 8:22 AM EDT Inhaled Oxygen Concentration - - Weight 105.7 kg (233 lb) 05/17/2018 8:22 AM EDT Height 172.7 cm (5' 8 ) 05/17/2018 8:22 AM EDT Body Mass Index 35.43 05/17/2018 8:22 AM EDT documented in this encounter Functional [...] CreamIndications:I ntertrigo Apply topically 2 times daily. 30 g 1 05/17/2018 9 nystatin (MYCOSTATIN) Top PowderIndications: Intertrigo Apply topically 3 times daily for 14 days. 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 Orders: - MICROALBUMIN/CREATININE RATIO URINE; Future Stress incontinence of urine - POCT URINALYSIS DIPSTICK - AMB REFERRAL TO UROGYNECOLOGY Schizoaffective disorder, depressive type (HCC) (Chronic) Comments: managed by psychiatry. stable. no current HI or SI Intertrigo - nystatin (MYCOSTATIN) Top Powder; Apply topically 3 times daily for 14 days. Dispense: 15 g; Refill: 2 - miconazole (MICOTIN) 2 % Top Cream; Apply topically 2 times daily. Dispense: 30 g; Refill: 1 Progress Note: Vitals: 05/17/18 0822 BP: 120/82 Pulse: 52 Resp: 16 Temp: 98.3 ??F (36.8 ??C) TempSrc: Temporal SpO2: 98% Weight: 233 lb (105.7 kg) Height: 5' 8 (1.727 m) Chief Complaint Patient presents with ??? Follow-up ??? Depression Pt sts that she is still having issues with her depression. ??? Vaginitis 2 weeks has not used anything to help. HPI: Here for follow up. Recent labs reviewed. Complains of urinary frequency and urgency. Also having vaginal burning and itching. Denies vaginaldischarge. States it is raw in that area. No burning with urination. States has nothing to apply toit. No blood with urination. No fever or chills. Complains of urinating on self and wears depends daily. Has little control of bladder. incontinenceis worse with positional changes, laughing and coughing. By the time she gets to the bathroom she has gone on herself. Denies urgency. Has never had any testing done and would like to pursue to see if anything would help. Explained stress versus urge incontinence and meds, etc. Has an appt soon with Ela Snow from [facility] with psychiatry. States mood is fair. Still having issues with man friend. States she gave him up for lent . Denies any more thoughts of hurting self. Complains of still falling. States she can tell when she is going to fall. She feels nervous. Denies heart racing or beating slow. Denies dizziness. Uses walker most of the time. She does not feel like it is a balance issue. Recent retinopathy exam done in office at last visit. Reinforced does not replace full exam. Princess had full exam done 6 months ago. Cannot recall name. Bradycardia in the 40's at recent cardiology appt. Lopressor was d/c. Denies feelings of dizziness.HR in 50's today Review of Systems Constitutional: Positive for fatigue. Respiratory: Positive for shortness of breath. Negative for chest tightness. Cardiovascular: Positive for palpitations. Negative for chest pain. Genitourinary: Positive for vaginal discharge and vaginal pain. Negative for difficulty urinating. Neurological: Negative for dizziness and headaches. Physical Exam NAD, in good mood. PERRL, ANICTERIS EOMI CTA B RR no murmur No C/C/E ABDOMEN SOFT WITH POS BS, NONTENDER Beefy red confluent rash in bilateral groins that is moist, poor perineal and anal hygiene. Stool on skin in rectal area, no external vaginal lesions or mass. Redness extends into labial area. Non focal neuro exam GAIT STEADY, POSTURE ERECT Results for orders placed or performed in visit on 05/17/18 POCT URINALYSIS DIPSTICK Result Value Ref Range Color, UA yellow CLEAR,YELLOW,ORANGE,RUST Clarity, UA cloudy CLEAR,CLOUDY Glucose, UA neg G/DL% Bilirubin, UA neg POS/NEG Ketones, UA neg POS/NEG Spec Grav, UA 1.010 1.001 - 1.035 G/DL Blood, UA neg POS/NEG pH, UA 6.5 5.0 - 8 Protein, UA neg POS/NEG Urobilinogen, UA neg 0.2 - 1.0 MG/DL Leukocytes, UA neg POS/NEG Nitrite, UA neg POS/NEG UA Appear POC Lot Number Expiration Date SeriAl # Patient Active Problem List Diagnosis ??? History [...] depressive type (HCC) ??? Intellectual disability ??? Chest pain ??? Positive occult stool blood test ??? Mammogram declined ??? Old UT (myocardial infarction) Past Medical History: Diagnosis Date ??? Atrial flutter (HCC) EPS, AFL Ablation on 12/31/[address] Tee ??? CHF (congestive heart failure) (HCC) ??? COPD (chronic obstructive pulmonary disease) (HCC) ??? DDD (degenerative disc disease) ??? Diabetes mellitus (HCC) ??? Hypertension ??? Intellectual disability 05/03/2017 ??? UT (myocardial infarction) (HCC) ??? RLS (restless legs [...] AND BRUSHING; Surgeon: Be Brown MD; Location: [facility]; Service: Endoscopy Social History Social History ??? Marital status: Spouse name: N/A ??? Number of children: 2 ??? Years of education: N/A Occupational History ??? retired Social History Main Topics ??? Smoking status: Never Smoker ??? Smokeless tobacco: Never Used ??? Alcohol use No Comment: wednesday mass ??? Drug use: No ??? Sexual activity: No Other Topics Concern ??? None Social History Narrative Lives at [facility] Has two children and two grandchildren. Is Family History Problem Relation Age of Onset ??? Cancer Mother larnyx cancer ??? Colon Cancer Mother ??? Heart Disease Sister ??? No Known Problems Son ??? Seizures Daughter Allergies Allergen Reactions ??? Compazine [Prochlorperazine Edisylate] ??? Stark ??? Pentazocine Hcl ??? Prochlorperazine Maleate ??? Talwin [Pentazocine Lactate] Outpatient Encounter Prescriptions as of 05/17/2018 Medication Sig Dispense Refill ??? acetaminophen 325 [...] mg by mouth daily (with breakfast). ??? omega-3 acid ethyl esters (LOVAZA) 1 [...] Tab by mouth nightly. 30 Tab 2 ??? fUROsemide (LASIX) 20 mg Oral Tablet Take 20 mg by mouth daily. ??? miconazole (MICOTIN) 2 % Top Cream Apply topically 2 times daily. 30 g 1 ??? nitroGLYCERIN (NITROSTAT) 0.4 mg SL Tablet, Sublingual Place 1 Tab under the tongue every 5 minutes as needed for Chest pain. 20 Tab 2 ??? nystatin (MYCOSTATIN) Top Powder Apply topically 3 times daily for 14 days. 15 g 2 No facility-administered encounter medications on file as of 05/17/2018. See time date stamps in the EMR for other pertinent history components reviewed as part of today's encounter. [facility] Documentation Medication Compliance: Compliant most of the time Understanding of Current Medications: Fair Medication Compliance Barriers: None or N/A Self-Management Ability: Fair Willingness to Adopt Healthy Behaviors: Fair Potential Barriers to completing treatment plans today: No significant barriers, Cognitive PCM Flowsheet was completed/reviewed as part of today's visit. Educated patient regarding the diagnosis, medication/treatment, goals, self- management tools and instructions based on their care plan. They verbalized understanding of the education given on the After Visit Summary [AVS] for today's visit. A copy of the AVS was provided either in writing and/or via [employer]. A new medicine was prescribed during this [...] Patient Instructions - Sharee Segovia ARNP - 05/17/2018 10:15 AM EDT Images from the original note were not included. Patient Education Intertrigo Intertrigo is skin irritation (inflammation) that happens in warm, moist areas of the body. The irritation can cause a rash and make skin raw and itchy. The rash is usually pink or red. It happens mostly between folds of skin or where skin rubs together, such as: ?? Toes. ?? Armpits. ?? Groin. ?? Belly. ?? Breasts. ?? Buttocks. This condition is not passed from person to person (is not contagious). Follow these instructions at home: ?? Keep the affected area clean and dry. ?? Do not scratch your skin. ?? Stay cool as much as possible. Use an air conditioner or fan, if you can. ?? Apply [id number]-[id number] and prescription medicines only as told by your doctor. ?? If you were prescribed an antibiotic medicine, use it as told by your doctor. Do not stop using the antibiotic even if your condition starts to get better. ?? Keep all follow-up visits as told by your doctor. This is important. How is this prevented? ?? Stay at a healthy weight. ?? Keep your feet dry. This is very important if you have diabetes. Wear cotton or wool socks. ?? Take care of and protect the skin in your groin and butt area as told by your doctor. ?? Do not wear tight clothes. Wear clothes that: ?? Are loose. ?? Take away moisture from your body. ?? Are made of cotton. ?? Wear a bra that gives good support, if needed. ?? Shower and dry yourself fully after being active. ?? Keep your blood sugar under control if you have diabetes. Contact a doctor if: ?? Your symptoms do not get better with treatment. ?? Your symptoms get worse or they spread. ?? You notice more redness and warmth. ?? You have a fever. This information is not intended to replace advice given to you by your health care provider. Make sure you discuss any questions you have with your health care provider. Document Released: 03/27/2011 Document Revised: 07/30/2016 Document Reviewed: 08/26/2015 [employer] Patient Education ?? 2018 [employer] documented in this encounter Plan of Treatment Scheduled Referrals Name Type Priority Associated Diagnoses Orde r Schedule AMB REFERRAL TO UROGYNECOLOGY Outpatient Referral Routine Stress incontinence of urine Ordered: 05/17/2018 documented as of this encounter Goals Goal [...] Procedure Name Priority Date/Time Associated Diagnosis Comments VAGINAL PANEL Routine 05/17/2018 10:19 AM EDT Stress incontinence of urine Intertrigo MICROALBUMIN/CREATI NINE RATIO URINE Routine 05/17/2018 9:24 AM EDT 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) POCT URINALYSIS DIPSTICK Routine 05/17/2018 9:17 AM EDT Stress incontinence of urine documented in this encounter Results * VAGINAL PANEL (05/17/2018 10:19 AM EDT) Naina Species DNA probe Negative Negative 05/19/2018 12:20 AM EDT [facility] Comment: Performed by [facility], [address] [place] [address] [email or web address], Luis Daniel Spangler MD, Lab. Director [place] Vaginalis DNAprobe Negative Negative 05/19/2018 12:20 AM EDT [facility] Trichomonas Vaginalis DNA probe Negative Negative 05/19/2018 12:20 AM EDT [facility] Comment: INTERPRETIVE DATA: Vaginal Pathogen Panel by DNA Probe All test results should be correlated with clinical history. Swab SPECIMEN FROM VAGINA / Unknown 05/17/2018 10:19 AM EDT 05/17/2018 10:19 AM EDT Sharee Segovia APRN MICROBIOLOGY - GENERAL OR DERABLES Final Result Performing Organization Address City/[facility]/ZIP Co de Phone Number [facility] [address] [place] [address] * MICROALBUMIN/CREATININE RATIO URINE (05/17/2018 9:24 AM EDT) Urine Microalb 17.7 mg/L 05/17/2018 4:35 PM EDT [facility] Urine Creatinine 76.0 mg/dL 05/17/2018 4:35 PM EDT [facility] Ur Microalb/Creat 23 0 - 30 mg/g 05/17/2018 4:35 PM EDT [facility] Urine URINE SPECIMEN COLLECTION / Unknown 05/17/2018 9:24 AM EDT 05/17/2018 9:24 AM EDT us Sharee Segovia APRN URINE ORDERABLES Final Re sult [facility] [address] [facility] , [place] [address] * POCT URINALYSIS DIPSTICK (05/17/2018 9:17 AM EDT) Color, UA yellow CLEAR,YELL OW,ORANGE, RUST SEP OFFICE Clarity, UA cloudy CLEAR,CLOU DY SEP OFFICE Glucose, UA neg G/DL% SEP OFFICE Bilirubin, UA neg POS/NEG SEP OFFICE Ketones, UA neg POS/NEG SEP knifer up Grav, UA 1.010 1.001 - 1.035 G/DL SEP OFFICE Blood, UA neg POS/NEG SEP OFFICE pH, UA 6.5 5.0 - 8 SEP OFFICE Protein, UA neg POS/NEG SEP OFFICE Urobilinogen, UA neg 0.2 - 1.0 MG/DL SEP OFFICE Leukocytes, UA neg POS/NEG SEP OFFICE Nitrite, UA neg POS/NEG SEP OFFICE UA Appear POC SEP OFFICE Lot Number SEP OFFICE Expiration Date SEP OFFICE SeriAl # SEP OFFICE Urine 05/17/2018 9:17 AM EDT Sharee Segovia APRN POINT OF CARE TEST ORDERA BLES Final Result SEP OFFICE documented in this encounter Visit Diagnoses Diagnosis 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)- Primary Type II or unspecified type diabetes mellitus with neurological manifestations, not stated as uncontrolled Stress incontinence of urine Schizoaffective disorder, depressive type (HCC) Schizoaffective disorder, unspecified condition Intertrigo Other specified erythematous condition Recurrent major depressive disorder, in partial remission (HCC) Chest pain at rest Chest pain, unspecified documented in this encounter Additional Health Concerns Assessment Noted Time PHQ-9 Depression Total Score: 13 019 9:00 AM EST A fall risk assessment has been complete d for the patient 05/17/2018 8:17 AM EDT PHQ-2 Depression Total Score: 6 04/19/19 19 9:00 AM EST documented as of this encounter Care Teams Oracle Applications Developer Relationship Specialty Start Date End Date Sharee Segovia APRN [address] [place], [place] [id number] PCP - General Nurse Practitioner-Family 09/21/16 documented as of this encounter
--- OUTSIDE RECORDS SUMMARY | 2024-02-16 14:51 | XMS_ITS | Encounter Summary ---
Author Organization [place] [address] Care Team Providers Care Quiller Operator Name Role Phone Sharee Segovia APRN Primary Care Provider [phone] Reason for Visit * Reason Comments Chest Pain Per Rafia at [facility] pt c/o not feeling well and chest pain at 1230, VS 180/64, 64,96%, described pain as stabbing with L arm tingling and jaw pain, Hx of CHF, CVA and diabetes, BG 153, was given Neurontin at noon, pt is A&O. * Auth/Cert/Inpt Specialty Diagnoses / Procedures Referred By Arsh patel Referred To Contact Diagnoses Chest pain, unspecified type Chest pain, unspecified type Chest pain, unspecified type Referral ID Status Reason Start Date Expiration Date Visits Re quested Visits Authorized [id number] 1 1 Encounter Details Date Type Department Care Team (Late st Contact Info) Description 07/19/2018 1:37 PM EDT - 07/20/2018 4:19 PM EDT Emergency [facility] [address] [address] [place] [address]. [place] [address] Negra Love MD [address] [place] [address] Jesse Crouch MD [address] [place] [address] [place] [address] Chest pain, unspecified type (Primary Dx) Discharge Disposition: Home or Self [...] Sign Reading Time Taken Comments Blood Pressure 118/88 07/20/2018 11:47 AM EDT Pulse 64 07/20/2018 11:47 AM EDT Temperature 36.7 ??C (98 ??F) 07/20/2018 11:47 AM EDT Respiratory Rate 16 07/20/2018 11:47 AM EDT Oxygen Saturation 93% 07/20/2018 11:47 AM EDT Inhaled Oxygen Concentration - - Weight - - Height - - Body Mass Index - - documented in this encounter Functional Status * [...] García APRN documented in this encounter Discharge Summaries * Jefferson Mckeon MD - 07/20/2018 1:54 PM EDT [facility] Discharge Summary Patient Name: Faby Palm : 1950 Admit Date: 07/19/2018 Discharge Date: 07/20/2018 Admitting Physician: Jesse Crouch MD Discharging Physician: Jefferson Mckeon MD Reason for Hospitalization: Active Hospital Problems *Chest pain Schizoaffective disorder, depressive type (HCC) Chronic diastolic CHF (congestive heart failure) (HCC) ASHD (arteriosclerotic heart disease) Chest pain at rest Essential hypertension Brief Hospital Summary: 68-year-old was admitted to hospital with the chest pain she had negative troponin. Seen by cardiology. Had stress test done which is unremarkable. Dose of Imdur was increasedfrom 60 mg to 120 mg daily. Recommended to follow-up with PCP and cardiology. Labs and imaging follow-up needed: none Consultants: Treatment Team: Consulting Physician: Bello Devries MD Discharge Exam: Vitals: 07/20/18 1147 BP: 118/88 Pulse: 64 Resp: 16 Temp: 98 ??F (36.7 ??C) SpO2: 93% See Progress Note Correct Full Discharge Med List: Medication List CHANGE how you take these medications * insulin glargine U-100 100 unit/mL Soln Qty: 10 mL Refills: 2 Commonly known as: LANTUS 36 units sq nightly What changed: Another medication with the same name was changed. Make sure you understand how and when to take each. * BASAGLAR KWIKPEN U-100 INSULIN 100 unit/mL (3 mL) Inpn Qty: 15 mL Refills: 3 Generic drug: Insulin glargine INJECT 36 UNITS UNDER THE SKIN DAILY AT BEDTIME What changed: See the new instructions. isosorbide mononitrate 120 mg Tb24 Dose: 120 mg Qty: 30 Tab Refills: 3 Commonly known as: IMDUR 120 mg, Oral, DAILY What changed: ?? medication strength ?? how much to take * This list has 2 medication(s) that are the same as other medications prescribed for you. Read thedirections carefully, and ask your doctor or other care provider to review them with you. CONTINUE taking these medications acetaminophen 325 mg Tab Dose: 650 mg Refills: 0 Commonly known as: TYLENOL albuterol 90 mcg/actuation Hfaa Dose: 2 Puff Refills: 0 Commonly known as: PROVENTIL HFA; VENTOLIN HFA amLODIPine 2.5 mg Tab Dose: 2.5 mg Qty: 30 Tab Refills: 11 Commonly known as: NORVASC 2.5 mg, Oral, DAILY ARIPiprazole 30 mg Tab Dose: 30 mg [...] clopidogrel 75 mg Tab Dose: 75 mg Qty: 90 Each Refills: 1 Commonly known as: PLAVIX 75 mg, Oral, DAILY ferrous sulfate 325 mg (65 mg iron) Tab Dose: 325 mg Qty: 60 Tab Refills: 5 325 mg, Oral, 2 TIMES DAILY WITH MEALS fUROsemide 20 mg Tab Dose: 20 mg Refills: 0 Commonly known as: LASix gabapentin 100 mg Cap Dose: 200 mg Refills: 0 Commonly known as: NEURONTIN glipiZIDE 10 mg Tab Dose: 10 mg Refills: 0 Commonly known as: GLUCOTROL lamoTRIgine 100 mg Tab Dose: 50 mg Refills: 0 Commonly known as: LaMICtal lisinopril 20 mg Tab tablet Dose: 20 mg Refills: 0 Commonly known as: PRINIVIL;ZESTril loperamide 2 mg Cap Dose: 2 mg Refills: 0 Commonly known as: IMODIUM Melatonin 3 mg Tab Dose: 5 mg Refills: 0 metFORMIN XR 500 mg Tb24 Dose: 500 mg Refills: 0 Commonly known as: GLUCOPHAGE-XR miconazole 2 % Crea Qty: 140 g Refills: 1 Commonly known as: MICOTIN Topical, 2 TIMES DAILY, Please dispense largest available tube nitroGLYCERIN 0.4 mg Subl Dose: 0.4 mg Qty: 20 Tab Refills: 2 Commonly known as: NITROSTAT 0.4 mg, Sublingual, EVERY 5 MIN PRN omega-3 acid ethyl esters 1 gram Cap Dose: 1 g Refills: 0 Commonly known as: LOVAZA oxybutynin 10 mg Tr24 Dose: 10 mg Qty: 30 Tab Refills: 2 Commonly known as: DITROPAN-XL 10 mg, Oral, DAILY pantoprazole 40 mg Tbec Dose: 40 mg Qty: 30 Tab Refills: 2 Commonly known as: PROTONIX 40 mg, Oral, DAILY QUEtiapine 50 mg Tab Dose: 50 mg Refills: 0 Commonly known as: SEROquel RANEXA 1,000 mg Tb12 Qty: 60 Tab Refills: 0 Generic drug: Ranolazine TAKE ONE TABLET BY MOUTH EVERY 12 HOURS risperiDONE 0.5 mg Tab Dose: 0.5 mg Refills: 0 Commonly known as: RisperDAL Saccharomyces boulardii 250 mg Cap Dose: 250 mg Refills: 0 Commonly known as: FLORASTOR sertraline 100 mg Tab Dose: 200 mg Refills: 0 Commonly known as: ZOLOFT sucralfate 100 mg/mL Susp Dose: 1 g Refills: 0 Commonly known as: CARAFATE traZODone 50 mg Tab Dose: 150 mg Qty: 90 Tab Refills: 2 Commonly known as: DESYREL 150 mg, Oral, NIGHTLY Where to Get Your Medications These medications were sent to [id number] [place] [address] - [address] [phone] [address] [facility] [address] ?? isosorbide mononitrate 120 mg Tb24 Condition at Discharge: stable Disposition: Home Follow-up: Bello Devries MD [address] [place] [address] [place] [address] In 2 weeks Follow Up Sharee Segovia ARNP [address] [place] [phone] Schedule an appointment as soon as possible for a visit in 3 days Follow Up Jefferson Mckeon MD 07/20/2018 documented in this encounter Discharge Instructions * Discharge Instructions* Jefferson Mckeon MD - 07/20/2018 1:56 PM EDT Follow-up with cardiology and PCP documented in this encounter Medications at Time of Discharge albuterol (PROVENTIL HFA; VENTOLIN HFA) 90 mcg/actuation Inhl HFA Aerosol InhalerIndications:C hronic diastolic CHF (congestive heart failure) (HCC),Essential hypertension,ASHD (arteriosclerotic heart disease),S/P ablation of atrial flutter,Old OR (myocardial infarction) Inhale 2 Puffs into the [...] type 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 And Takes 100 mg at night pantoprazole [...] with long-term current use of insulin (HCC) 36 units sq nightly 10 mL 2 07/12/2018 9 isosorbide mononitrate (IMDUR) 120 mg Oral Tablet Sustained Release 24 hr Take 1 Tab by mouth daily. 30 Tab 3 07/20/2018 9 lisinopril (PRINIVIL;ZESTRIL) 20 mg Oral TabletIndications:NS NORMA (non-ST elevated myocardial infarction) ([facility]),ASHD (arteriosclerotic heart disease),Essential hypertension,Chronic diastolic CHF (congestive heart failure) ([facility]),Hyperlipidemia , unspecified hyperlipidemia type Take 20 mg [...] 0.4 mg SL Tablet, SublingualIndication s:Angina pectoris ([facility]) Place 1 Tab under the tongue every [...] Refills Last Filled Start Date End Date isosorbide mononitrate (IMDUR) 120 mg Oral Tablet Sustained Release 24 hr Take 1 Tab by mouth daily. 30 Tab 3 07/20/2018 08/14/2018 documented in this encounter Discharge Disposition Disposition Code Departure Means Destination Home or Self [facility] documented in this encounter Progress Notes * VeenaElaAlba - 07/20/2018 4:19 PM EDT 07/20/18 1711 Pastoral Care Encounter Visited With Patient Date of visit 07/20/18 Visit Type Follow-up Need to follow-up? Yes Yarsanism Needs Yarsanism articles ( [facility] rosary ring) Pastoral Care Issues Comments said being discharged, (needed to use bathroom) let her know I would keep her in prayer Pastoral Care Plan/Intervention Plan/Intervention Prayer Plan/Intervention Comments Ela * Destini Rogers RN - 07/20/2018 4:19 PM EDT Pt discharged back to [facility] per order. IV removed, no complications noted, dressing applied. Heart monitor removed. Verbal and written discharge information given to pt. Pt verbalized understanding. Pt taken off floor via wheelchair by RN to br transported by [facility] [employer]. * Ela Cochran RN - 07/20/2018 3:29 PM EDT 07/20/18 1526 Final Note Referral to SEP Care Management (SEP patients only) No Actual Discharge Plan 07/20/18 CC Pt discharging today to home at [facility]. Pt denies needs. [facility] to transport at discharge. Per [facility] a company called [employer] is transporting for them. Pt denies needs. [facility] and aware of discharge. CC to follow for discharge. Discharge to Assisted Living Transportation at discharge [facility] cab PASAR Completed Not Applicable Patient/Family Aware of Plan Yes MD Aware of Plan Yes RN Notified of Plan Yes * Mike Dunaway - 07/20/2018 3:11 PM EDT 07/20/18 1500 Pastoral Care Encounter Visited With Patient Date of visit 07/20/18 Visit Type Follow-up Need to follow-up? Yes Yarsanism Needs Prayer Sacramental Needs Has Patient Received SOS? Yes Date of Sacrament of the Sick (Anointing) 07/20/18 Pastoral Care Plan/Intervention Plan/Intervention Sacraments;Prayer 07/20/2018 Mike Dunaway * Judi Li APRN - 07/20/2018 1:12 PM EDT Stress results reviewed. Nonischemic EKG and perfusion imaging. On ranexa and imdur 60 mgs daily, will increase imdur to 120 mgs daily at d/c OP follow up with Dr. Devries in 2 weeks for re evaluation. Stable for discharge from cards standpoint when ok with others. Judi Li APRN * Michelle Obrien RN - 07/20/2018 10:57 AM EDT [facility] called and notified of pt room transfer. * Michelle Obrien RN - 07/20/2018 10:45 AM EDT Report called to Destini on 3S. * Michelle Obrien RN - 07/20/2018 9:03 AM EDT Cardio MD in room with pt * Michelle Obrien RN - 07/20/2018 8:50 AM EDT Rafia from [facility] called and updated on patient * Diane Abarca RN - 07/19/2018 11:04 PM EDT admitted to ED From [facility] with chest pain. Pt is being held as a TCU overflow, pt is alert and oriented, initial assessment completed. Bed rails up X2, bed in low position, call light within reach. Pt resting comfortably in bed, will continue to monitor. * Ela Curiel - 07/19/2018 7:04 PM EDT 07/19/18 1902 Pastoral Care Encounter Visited With Patient Date of visit 07/19/18 Visit Type Initial Need to follow-up? Yes Crisis Visit ED Yarsanism Needs Yarsanism articles (requested [employer]) Spiritual Needs Taoist? Zoroastrian Yarsanism Affiliation [place] Pastoral Care Issues Comments already has marta from last visit, wants FrSuki Dunaway to hear her confession so left candido note, prayed for peace and healing,blessings for family and staff, will keep in prayer Pastoral Care Plan/Intervention Plan/Intervention Active Listening;Continue to Follow;Prayer Plan/Intervention Comments Ela * Darren Aranda RN - 07/19/2018 4:42 PM EDT 07/19/18 1638 ED Screening ED Screening Completed Initial screening complete, no post-acute needs identified at this time Medical Record Reviewed Yes Who you interviewed In person interview with patient What brought the patient to the ED 07/19/2018 ED CC met with patient at bedside. [place] [facility] and needs assistance with care, uses a walker. PCP is Sharee Robb APRN.Pharmacy is [facility] in [place], issues. OBS letter given and explained. Patient will use [employer] transportation through [employer]. CC to follow at discharge. Where did the patient come from? [facility] Support Systems Home Care Staff Activities of Daily Living Needs Assistance Mental Status Alert and oriented Issues with non-compliance No Anticipated post-acute care needs Home with OP Follow Up Potential barriers to discharge No Observation Information Provided to Patient/Family Yes CC staff provided Non- Medicare Obs Notice documented in this encounter H&P Notes * Jefferson Mckeon MD - 07/20/2018 8:41 AM EDT Images from the original note were not included. Name: Faby Palm ADDRESS: [facility] [address] [facility] [id number] : 1950 AGE: 68 y.o. Admitting Physician: Jesse Crouch MD Date of Admit: 07/19/2018 PCP:Sharee Segovia ARNP Chief Complaint: Chest Pain (Per Rafia at [facility] pt c/o not feeling well and chest pain at 1230, VS180/64, 64,96%, described pain as stabbing with L arm tingling and jaw pain, Hx of CHF, CVA and diabetes, BG 153, was given Neurontin at noon, pt is A&O. ) History of Present Illness: Patient is a 68 y.o. female with past medical history of HTN, HLD, diastolic heart failure, schizoaffective disorder is admitted from [facility] for evaluation of chest pain. Patient reports her chest pain started after she was done eating her lunch y esterday. She describes her chest pain and stabbing, constant, midsternal in location, radiates to neck and left arm. She reports prior history of coronary artery disease and takes her medication regularly. Her angiogram in July 2017 showed mid RCA lesion 40% stenosis, ost RCA lesion 60% stenosis, mid LAD 50% stenosis. In emergency room she has negative troponin. Chest x-ray is unremarkable for acute findings. EKG shows no evidence of acute ischemia. Past Medical History: Diagnosis Date ??? Atrial flutter ([facility]) EPS, AFL Ablation on 12/31/[address] Tee ??? CHF (congestive heart failure) ([facility]) ??? COPD (chronic obstructive pulmonary disease) ([facility]) ??? DDD (degenerative disc disease) ??? Diabetes mellitus ([facility]) ??? Hypertension ??? Intellectual disability 05/03/2017 ??? OR (myocardial infarction) ([facility]) ??? RLS (restless legs syndrome) ??? Schizoaffective disorder, depressive type ([facility]) 02/19/2017 ??? Stroke ([facility]) 2010 left side affected ??? Suicide attempt ([facility]) ??? Urinary incontinence ??? Yeast infection recurrent [...] Brown MD; Location: [facility] END[facility]COPY; Service: Endoscopy Prior to Admission medications Medication Sig Start Date End Date Taking? Authorizing Provider amLODIPine (NORVASC) 2.5 mg Oral Tablet Take [...] MOUTH NIGHTLY 03/24/17 Yes Joanna Pierce MD busPIRone (BUSPAR) 5 mg Oral Tablet Take 5 mg by mouth 2 times daily. Yes Provider, Historical clopidogrel (PLAVIX) 75 mg Oral Tablet Take 1 Tab by mouth daily. 07/27/17 Yes Ben Anderson APRN ferrous sulfate 325 mg (65 mg iron) Oral Tablet Take 1 Tab by mouth 2 times daily (with meals). 04/04/15 Yes Campbell Huston MD glipiZIDE (GLUCOTROL) 10 mg Oral Tablet Take 10 mg by mouth 2 times daily. Yes Provider, Historical insulin glargine U-100 (LANTUS) 100 unit/mL SubQ Solution 36 units sq nightly 07/12/18 Yes Sharee Segovia ARNP lamoTRIgine (LAMICTAL) 100 mg Oral Tablet Take 50 mg by mouth 2 times daily. Takes 100 mg at night Yes Provider, Historical lisinopril (PRINIVIL;ZESTRIL) 20 mg Oral Tablet Take 20 mg by mouth every morning. Yes Provider, Historical Melatonin 3 mg Oral Tablet Take 5 mg by mouth nightly. Yes Provider, Historical metFORMIN XR (GLUCOPHAGE-XR) 500 mg Oral Tablet Sustained Release 24 hr Take 500 mg by mouth daily (with breakfast). Yes Provider, Historical pantoprazole (PROTONIX) 40 mg Oral Tablet, Delayed Release (E.C.) Take 1 Tab by mouth daily. 09/21/17 Yes Ernie Pizano MD QUEtiapine (SEROQUEL) 50 mg Oral Tablet Take 50 mg by mouth nightly. Yes Provider, Historical RANEXA 1,000 mg Oral Tablet Sustained Release 12 hr TAKE ONE TABLET BY MOUTH EVERY 12 HOURS 10/06/17 Yes Joanna Pierce MD sertraline (ZOLOFT) 100 mg Oral Tablet Take 200 mg by mouth daily. Reported on 08/12/2016 Yes Provider, Historical acetaminophen 325 mg Oral Tab Take 650 mg by mouth every 4 hours as needed for Pain. Pt takes 1 to 2 tabs as needed Provider, Historical albuterol (PROVENTIL HFA; VENTOLIN HFA) 90 mcg/actuation Inhl HFA Aerosol Inhaler Inhale 2 Puffs into the lungs 0800, 1200, 1600, 2000. Provider, Historical BASAGLAR KWIKPEN U-100 INSULIN 100 unit/mL (3 mL) SubQ Insulin Pen INJECT 36 UNITS UNDER THE SKIN DAILY AT BEDTIME Patient taking differently: INJECT 28 UNITS UNDER THE SKIN DAILY AT BEDTIME 07/18/18 Sharee Segovia ARNP Calcium Carbonate-Vitamin D3 (CALCIUM 600 + D,3,) 600 mg calcium- 200 unit Oral Capsule Take 1 Tab by mouth every 12 hours. 07/13/18 Sharee Segovia ARNP fUROsemide (LASIX) 20 mg Oral Tablet Take 20 mg by mouth daily. Provider, Historical gabapentin (NEURONTIN) 100 mg Oral Capsule Take 200 mg by mouth 4 times daily. Provider, Historical isosorbide mononitrate (IMDUR) 60 mg Oral Tablet Sustained Release 24 hr TAKE ONE TABLET BY MOUTH ONCE DAILY Patient not taking: Reported on 07/12/2018 03/24/17 Joanna Pierce MD loperamide (IMODIUM) 2 mg Oral Capsule Take 2 mg by mouth 3 times daily as needed. Provider, Historical miconazole (MICOTIN) 2 % Top [...] by mouth daily. 06/14/18 Sharee Segovia ARNP risperiDONE (RISPERDAL) 0.5 mg Oral Tablet Take 0.5 mg by mouth nightly. Provider, Historical Saccharomyces boulardii (FLORASTOR) 250 mg Oral Capsule Take 250 mg by mouth 2 times daily. Provider, Historical sucralfate (CARAFATE) 100 mg/mL Oral Suspension Take 1 g by mouth 4 times daily (before meals and nightly). Provider, Historical traZODone (DESYREL) 50 mg Oral Tablet Take 3 Tabs by mouth nightly. 07/12/18 Sharee Segovia ARNP Allergies Allergen Reactions ??? Compazine [Prochlorperazine Edisylate] ??? [place] ??? Pentazocine Hcl ??? Prochlorperazine Maleate ??? Talwin [Pentazocine Lactate] Social History Social History ??? Marital status: Spouse name: N/A ??? Number of children: 2 ??? Years of education: N/A Occupational History ??? retired Social History Main Topics ??? Smoking status: Never Smoker ??? Smokeless tobacco: Never Used ??? Alcohol use No Comment: wednesday mass ??? Drug use: No ??? Sexual activity: No Other Topics Concern ??? None Social History Narrative Lives at [facility] Has two children and two grandchildren. Is Family History Problem Relation Age of Onset ??? Cancer Mother larnyx cancer ??? Colon Cancer Mother ??? Heart Disease Sister ??? No Known Problems Son ??? Seizures Daughter Review of Systems: The listed systems were reviewed and reveal the following in addition to any already discussed in the HPI: ?? Constitutional: No fever, chills, or weight loss. ?? Eyes: No visual disturbance. ?? HENT: No headache, hearing loss, epistaxis, sore throat. ?? Respiratory: No SOB, cough, hemoptysis, or pleuritic chest pain. ?? Cardiovascular: No chest pain, PND or orthopnea, no palpitations. ?? Endocrine: No polyuria, polydypsia, or polyphagia. ?? GI: No abdominal pain, nausea, vomiting, diarrhea, melena or hematochezia. ?? : No dysuria, frequency, hesitancy, or hematuria ?? Musculoskeletal: No myalgias or muscle weakness. ?? Neurologic: No focal numbness or weakness. ?? Skin: No edema, jaundice, or skin discoloration. ?? Psychiatric: No depression, homicidal or suicidal ideation. ?? Hematologic/Allergic: No history of blood clots, bleeding or easy bruising. Physical Exam: Blood pressure 148/68, pulse 60, temperature 98 ??F (36.7 ??C), temperature source Oral, resp. rate12, SpO2 97 %, not currently . There is no height or weight on file to calculate BMI. There is no height or weight on file to calculate BSA. Constitutional: Pt appears well-developed and well-nourished. No distress. HEENT: Normocephalic and atraumatic. Oropharynx is clear and moist. Conjunctivae and EOM are normal. Pupils are equal, round, and reactive to light. No scleral icterus. Neck: Normal range of motion. Neck supple. Cardiovascular: Normal rate, regular rhythm, normal heart sounds and intact distal pulses. Exam reveals no gallop and no friction rub. No murmur heard. Pulmonary/Chest: Clear breath sounds bilaterally. No crackles, rales, wheezing. No accessory muscles use. Abdominal: Soft. Bowel sounds are normal. There is no distension, no palpable mass, rebound or guarding. : not examined . Neurological: Patient is alert and oriented to person, place, and time. No cranial nerve deficit. Strength is normal and equal throughout. Sensation is intact Musculoskeletal: No edema lower extremity Skin: Skin is warm and dry. No rash noted. Psychiatric: normal mood and affect. Labs: CBC: Lab Results Component Value Date WBC 7.3 07/19/2018 RBC 4.11 07/19/2018 HGB 12.3 07/19/2018 HCT 37.9 07/19/2018 MCV 92.3 07/19/2018 MCHC 32.5 07/19/2018 RDW 14.0 07/19/2018 MPV 9.4 07/19/2018 BMP: Lab Results Component Value Date NA 140 07/19/2018 K 4.6 07/19/2018 CL 101 07/19/2018 CO2 28 07/19/2018 BUN 22 07/19/2018 CREATININE 1.29 07/19/2018 CALCIUM 9.8 07/19/2018 GFRAFRAM 50 (L) 07/19/2018 GFRNONAFRAM 43 (L) 07/19/2018 GLU 157 (H) 07/19/2018 Hepatic: No results found for: ALKPHOS, ALT, AST, PROT, LABBILI, BILIDIR, IBILI, LABALBU No results found for: AMYLASE, LIPASE U/A:No results found for: SPECGRAV, UAPROTEIN, BLOODU, NITRITE, LEUKOCYTESUR, WBCUA, RBCUA Coagulation: No results found for: INR, APTT Cardiac markers: No results found for: CKMB, MYOGLOBIN ABGs:No results found for: PH, PCO2, PO2, HCO3, TCO2, BASEEXCESS, O2SAT, INSPIREDO2, SPECIMENTYPE Radiology: Xr Elbow Left Ap Lateral And Obliques Result Date: 07/19/2018 XR ELBOW LEFT AP LATERAL AND OBLIQUES, 07/19/2018 4:24 PM CLINICAL HISTORY: All with elbow pain. COMPARISON: None. PROCEDURE COMMENTS: Routine views. FINDINGS: No visible fracture or malalignment. No fat pad displacement to suggest effusion. Joint spaces are maintained. Soft tissue swelling overlying the olecranon region. No acute bony abnormality of the elbow. - - Xr Chest Ap Portable Result Date: 07/19/2018 XR CHEST AP PORTABLE, 07/19/2018 2:41 PM CLINICAL HISTORY: -CHEST PAIN COMPARISON: 06/30/2018 PROCEDURE COMMENTS: AP portable technique. FINDINGS: Heart size borderline but stable. Lungs are clear. No acute finding. - - Ek Ekg 12 Lead Result Date: 07/20/2018 NOTICE: Preliminary tracing available for review; Final Interpretation by physician to follow. 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 EKG Reviewed: Results for orders placed during the hospital encounter of 07/19/18 EK EKG 12 LEAD Narrative NOTICE: Preliminary tracing available for review; Final Interpretation by physician to follow. Impression 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 *Chest pain ??? Schizoaffective disorder, depressive type (HCC) ??? Chronic diastolic CHF (congestive heart failure) (HCC) ??? ASHD (arteriosclerotic heart disease) ??? Chest pain at rest ??? Essential hypertension Chest pain Negative troponin. EKG with no evidence of acute ischemia. Has several risk factor for coronary artery disease and has known coronary artery disease. Seen by cardiology and stress test ordered. Pending. Aspirin, Plavix, sublingual nitroglycerin as needed. ASHD Imdur, Ranexa, dual antiplatelet agent. Essential hypertension Controlled. Resume home medication After stress test Type 2 diabetes mellitus Basaglar and sliding scale insulin. Hold home oral hypoglycemics. Chronic diastolic heart failure Compensated. Lasix, metoprolol and lisinopril. Dyslipidemia Statin History of schizoaffective disorder Resume prior to admission medication Prophylaxis DVT-Lovenox PPI Disposition-pending stress study Jefferson Mckeon MD 07/20/2018 This note was generated using voice recognition technology. It has been reviewed by the undersigned, however, may still contain unintended errors documented in this encounter Consult Notes * Mohamud Childers MD - 07/20/2018 8:58 AM EDTAssociated Order(s): IP CONSULT TO CARDIOLOGY Name: Faby Palm Inpatient Consult to Cardiology - Chest Pain; Stat Consult Requested: No Consult performed by: MOHAMUD CHILDERS Consult ordered by: NEGRA LOVE Assessment/Recommendations: Chest pain syndrome atypical with intermediate probability of coronary artery disease Known coronary artery disease with borderline lesion involving mid LAD and RCA Hypertension Status post previous ablation for atrial flutter off beta-blockers secondary to bradycardia Degenerative joint disease History of previous CVA Discussion and plan 68-year-old woman with known coronary artery disease who presents with chest discomfort more or less continuous no specific aggravating or relieving factors has ruled out for myocardial infarction and acute coronary syndrome will proceed with myocardial perfusion for further risk stratification in the meantime continue to optimize medical management further plan per stress perfusion. Consider adding Long acting nitrates Imdur 30 mg daily PCP:Sharee Segovia ARNP 68-year-old woman with a history of known coronary artery disease status post previous coronary arteriography that revealed 50 to 60% lesion involving mid LAD nonischemic by FFR also had ostial RCA disease which was also nonischemic by FFR preserved LV systolic function who presents to the hospital with chief complaints of retrosternal chest discomfort that radiates to her left shoulderand arm no specific aggravating or relieving factor pain does get worse intermittently presently chest pain free with nitroglycerin patch EKG did not show any dynamic changes serial troponins are so far unremarkable She denies any shortness of breath otherwise. No palpitations no fall no bleeding issues was previously taken off beta-blockers secondary to bradycardia and fatigue. Past Medical History: Diagnosis Date ??? Atrial flutter (HCC) EPS, AFL Ablation on 12/31/[address] Tee ??? CHF (congestive heart failure) (HCC) ??? COPD (chronic obstructive pulmonary disease) (HCC) ??? DDD (degenerative disc disease) ??? Diabetes mellitus (HCC) ??? Hypertension ??? Intellectual disability 05/03/2017 ??? OR (myocardial infarction) (HCC) ??? RLS (restless legs [...] Surgeon: Chrissy Brown MD; Location: [facility]; Service: Endoscopy Family History Problem Relation Age of Onset ??? Cancer Mother larnyx cancer ??? Colon Cancer Mother ??? Heart Disease Sister ??? No Known Problems Son ??? Seizures Daughter Social History Social History ??? Marital status: Spouse name: N/A ??? Number of children: 2 ??? Years of education: N/A Occupational History ??? retired Social History Main Topics ??? Smoking status: Never Smoker ??? Smokeless tobacco: Never Used ??? Alcohol use No Comment: wednesday mass ??? Drug use: No ??? Sexual activity: No Other Topics Concern ??? None Social History Narrative Lives at [facility] Has two children and two grandchildren. Is Review of Systems Constitutional: Negative. HENT: Negative. Eyes: Negative. Respiratory: Negative. Cardiovascular: Positive for chest pain. Negative for palpitations, orthopnea, claudication, leg swelling and PND. Gastrointestinal: Positive for abdominal pain and heartburn. Negative for nausea and vomiting. Genitourinary: Negative. Musculoskeletal: Negative. Skin: Negative. Vitals: 07/19/18 1959 07/19/18 2025 07/19/18 2337 07/20/18 0400 BP: 127/49 150/60 154/55 148/68 BP Location: Right arm Right arm Right arm Patient Position: Semi Fowlers Semi Fowlers Semi Fowlers Pulse: 56 62 60 Resp: 17 21 12 Temp: 98.1 ??F (36.7 ??C) 98.6 ??F (37 ??C) 98 ??F (36.7 ??C) TempSrc: Oral Oral Oral SpO2: 97% 96% 97% Physical Exam EXAM: Alert and oriented. VSS Neck: Supple no JVP CVS: RRR no murmur no rub. RESP: B/L clear no wheezing or crackles Abdo: Soft non tender sounds heard normally. CONSUMER PRODUCT ADVISOR: Intact. No focal defecit Extremities: Pulses well palpable, no cyanosis no edema. Lab and radiographic data reviewed. ECG no dynamic changes Thank you for asking me to participate in your patient's care. Mohamud Childers MD 07/20/2018 documented in this encounter ED Notes * Marisol Torre RN - 07/19/2018 8:20 PM EDT Bed: FT24 Expected date: Expected time: Means of arrival: Comments: * Deena Landeros - 07/19/2018 6:13 PM EDT Cardiology called back stating that they will see pt in the morning Deena Landeros 07/19/2018 6:14 PM * Faby Ureña PA-C - 07/19/2018 1:37 PM EDT Chief Complaint Patient presents with ??? Chest Pain Per Rafia at [facility] pt c/o not feeling well and chest pain at 1230, VS 180/64, 64,96%, described pain as stabbing with L arm tingling and jaw pain, Hx of CHF, CVA and diabetes, BG 153, was given Neurontin at noon, pt is A&O. Patient is a 68-year-old female with a past medical history significant for hypertension, CHF, COPD, and schizoaffective disorder presenting to the emergency department with chest pain. Patient resides at [facility]. She was reportedly eating approximately 3 hours ago when she s tarted with central chest pain. This is described as stabbing and has been constant over the last 3hours. She reports some tingling in her arm, but denies any pain radiating into her neck. Triage report does mention pain radiating into her jaw at times. She denies exertional chest pain. She deniesalleviating or aggravating factors. She denies shortness of breath and leg swelling. She does have a history of hypertension and diabetes mellitus, but denies hypercholesterolemia. Shedoes not smoke. Family cardiac history is significant for a myocardial infarction for her father and paternal grandfather. Patient was seen in the ED 2 weeks ago for similar symptoms. She had a angiogram in July 2017. Mid LAD was 50% stenosed; Ost RCA was 60% stenosed; and mid RCA was 40% stenosis. Patient presents here for further evaluation. Patient History Allergies Allergen Reactions ??? Compazine [Prochlorperazine Edisylate] ??? [place] ??? Pentazocine Hcl ??? Prochlorperazine Maleate ??? Talwin [Pentazocine Lactate] Home Medications: Prior to Admission medications Medication Sig Start Date End Date Taking? Authorizing Provider amLODIPine (NORVASC) 2.5 mg Oral Tablet Take [...] MOUTH NIGHTLY 03/24/17 Yes Joanna Pierce MD busPIRone (BUSPAR) 5 mg Oral Tablet Take 5 mg by mouth 2 times daily. Yes Provider, Historical clopidogrel (PLAVIX) 75 mg Oral Tablet Take 1 Tab by mouth daily. 07/27/17 Yes Ben Anderson APRN ferrous sulfate 325 mg (65 mg iron) Oral Tablet Take 1 Tab by mouth 2 times daily (with meals). 04/04/15 Yes Campbell Huston MD glipiZIDE (GLUCOTROL) 10 mg Oral Tablet Take 10 mg by mouth 2 times daily. Yes Provider, Historical insulin glargine U-100 (LANTUS) 100 unit/mL SubQ Solution 36 units sq nightly 07/12/18 Yes Sharee Segovia ARNP lamoTRIgine (LAMICTAL) 100 mg Oral Tablet Take 50 mg by mouth 2 times daily. Takes 100 mg at night Yes Provider, Historical lisinopril (PRINIVIL;ZESTRIL) 20 mg Oral Tablet Take 20 mg by mouth every morning. Yes Provider, Historical Melatonin 3 mg Oral Tablet Take 5 mg by mouth nightly. Yes Provider, Historical metFORMIN XR (GLUCOPHAGE-XR) 500 mg Oral Tablet Sustained Release 24 hr Take 500 mg by mouth daily (with breakfast). Yes Provider, Historical pantoprazole (PROTONIX) 40 mg Oral Tablet, Delayed Release (E.C.) Take 1 Tab by mouth daily. 09/21/17 Yes Ernie Pizano MD QUEtiapine (SEROQUEL) 50 mg Oral Tablet Take 50 mg by mouth nightly. Yes Provider, Historical RANEXA 1,000 mg Oral Tablet Sustained Release 12 hr TAKE ONE TABLET BY MOUTH EVERY 12 HOURS 10/06/17 Yes Joanna Pierce MD sertraline (ZOLOFT) 100 mg Oral Tablet Take 200 mg by mouth daily. Reported on 08/12/2016 Yes Provider, Historical acetaminophen 325 mg Oral Tab Take 650 mg by mouth every 4 hours as needed for Pain. Pt takes 1 to 2 tabs as needed Provider, Historical albuterol (PROVENTIL HFA; VENTOLIN HFA) 90 mcg/actuation Inhl HFA Aerosol Inhaler Inhale 2 Puffs into the lungs 0800, 1200, 1600, 2000. Provider, Historical BASAGLAR KWIKPEN U-100 INSULIN 100 unit/mL (3 mL) SubQ Insulin Pen INJECT 36 UNITS UNDER THE SKIN DAILY AT BEDTIME Patient taking differently: INJECT 28 UNITS UNDER THE SKIN DAILY AT BEDTIME 07/18/18 Sharee Segovia ARNP Calcium Carbonate-Vitamin D3 (CALCIUM 600 + D,3,) 600 mg calcium- 200 unit Oral Capsule Take 1 Tab by mouth every 12 hours. 07/13/18 Sharee Segovia ARNP fUROsemide (LASIX) 20 mg Oral Tablet Take 20 mg by mouth daily. Provider, Historical gabapentin (NEURONTIN) 100 mg Oral Capsule Take 200 mg by mouth 4 times daily. Provider, Historical isosorbide mononitrate (IMDUR) 60 mg Oral Tablet Sustained Release 24 hr TAKE ONE TABLET BY MOUTH ONCE DAILY Patient not taking: Reported on 07/12/2018 03/24/17 Joanna Pierce MD loperamide (IMODIUM) 2 mg Oral Capsule Take 2 mg by mouth 3 times daily as needed. Provider, Historical miconazole (MICOTIN) 2 % Top [...] by mouth daily. 06/14/18 Sharee Segovia ARNP risperiDONE (RISPERDAL) 0.5 mg Oral Tablet Take 0.5 mg by mouth nightly. Provider, Historical Saccharomyces boulardii (FLORASTOR) 250 mg Oral Capsule Take 250 mg by mouth 2 times daily. Provider, Historical sucralfate (CARAFATE) 100 mg/mL Oral [...] ??? Hypertension ??? Intellectual disability 05/03/2017 ??? OR (myocardial infarction) (HCC) ??? RLS (restless legs syndrome) ??? Schizoaffective disorder, depressive type ([facility]) 02/19/2017 ??? Stroke ([facility]) 2010 left side affected ??? Suicide attempt ([facility]) ??? Urinary incontinence ??? Yeast infection recurrent [...] Systems Review of Systems Constitutional: Negative for fever. Respiratory: Negative for shortness of breath. Cardiovascular: Positive for chest pain. Negative for leg swelling. Gastrointestinal: Negative for vomiting. Skin: Negative for color change, pallor, rash and wound. Neurological: Negative for syncope and numbness. Psychiatric/Behavioral: Negative for confusion. Physical Exam Blood pressure 143/60, pulse 51, temperature 97.8 ??F (36.6 ??C), temperature source Oral, resp. rate 12, SpO2 100 %, not currently . Physical Exam Constitutional: She is oriented to person, place, and time. She appears well- developed and well-nourished. No distress. HENT: Head: Normocephalic and atraumatic. Right Ear: External ear normal. Left Ear: External ear normal. Nose: Nose normal. Eyes: Conjunctivae and EOM are normal. Right eye exhibits no discharge. Left eye exhibits no discharge. No scleral icterus. Neck: Normal range of motion. Neck supple. Cardiovascular: Normal rate, regular rhythm and intact distal pulses. Exam reveals no friction rub. Pulmonary/Chest: Effort normal and breath sounds normal. No respiratory distress. She has no wheezes. She has no rales. Lungs clear to auscultation. Musculoskeletal: Normal range of motion. She exhibits no edema. No lower leg edema, calf tenderness, or palpable cords. Neurological: She is alert and oriented to person, place, and time. No cranial nerve deficit. Skin: Skin is warm and dry. No rash noted. She is not diaphoretic. No erythema. No pallor. Psychiatric: She has a normal mood and affect. Nursing note and vitals reviewed. Procedures Radiology/EKG/Labs: Results for orders placed or performed during the hospital encounter of 07/19/18 XR CHEST AP PORTABLE Narrative XR CHEST AP PORTABLE, 07/19/2018 2:41 PM CLINICAL HISTORY: -CHEST PAIN COMPARISON: 06/30/2018 PROCEDURE COMMENTS: AP portable technique. FINDINGS: Heart size borderline but stable. Lungs are clear. Impression No acute finding. - - XR ELBOW LEFT AP LATERAL AND OBLIQUES Narrative XR ELBOW LEFT AP LATERAL AND OBLIQUES, 07/19/2018 4:24 PM CLINICAL HISTORY: All with elbow pain. COMPARISON: None. PROCEDURE COMMENTS: Routine views. FINDINGS: No visible fracture or malalignment. No fat pad displacement to suggest effusion. Joint spaces are maintained. Soft tissue swelling overlying the olecranon region. Impression No acute bony abnormality of the elbow. - - CBC WITH DIFF Result Value Ref Range WBC 7.3 4.0 - 11.0 x10(3)/mcL RBC 4.11 3.80 - 5.10 x10(6)/mcL Hgb 12.3 12.0 - 15.6 g/dL Hct 37.9 35.7 - 45.9 % MCV 92.3 82.5 - 99.8 fL MCH 30.0 27.0 - 34.3 pg MCHC 32.5 32.1 - 35.3 g/dL RDW 14.0 11.5 - 15.0 % Platelet 165 144 - 423 x10(3)/mcL MPV 9.4 6.8 - 10.8 fL Neut Percent 72.8 % Lymph Percent 18.9 % [place] Percent 4.6 % Eos Percent 3.1 % Baso Percent 0.6 % Neut # 5.3 1.8 - 7.7 x10(3)/mcL Lymph # 1.4 0.6 - 4.8 x10(3)/mcL [place] # 0.3 0.0 - 1.3 x10(3)/mcL Eos# 0.2 0.0 - 0.5 x10(3)/mcL Baso # 0.0 0.0 - 0.2 x10(3)/mcL BASIC METABOLIC PANEL Result Value Ref Range Sodium 140 136 - 145 mmol/L Potassium 4.6 3.5 - 5.0 mmol/L Chloride 101 98 - 107 mmol/L Total CO2 28 22 - 29 mmol/L Anion Gap 11 7 - 16 mmol/L Calcium 9.8 8.8 - 10.4 mg/dL Glucose Lvl 157 (H) 82 - 100 mg/dL BUN 22 8 - 23 mg/dL Creatinine 1.29 0.51 - 1.30 mg/dL GFR Afr Am 50 (L) >=60 mL/min/1.73 m2 GFR Non Afr Am 43 (L) >=60 mL/min/1.73 m2 TROPONIN-T HIGH SENSITIVITY Result Value Ref Range pt-[id number]-T 9 <14 ng/L Narrative Ingestion of charles doses of biotin (>5 mg/day) taken within 8 hours of drawing blood sample can interfere with this immunoassay test. TROPONIN-T HIGH SENSITIVITY Result Value Ref Range jq-tGnfgauxr-W 8 <14 ng/L Narrative Ingestion of charles doses of biotin (>5 mg/day) taken within 8 hours of drawing blood sample can interfere with this immunoassay test. EK EKG 12 LEAD Narrative NOTICE: Preliminary tracing available for review; Final Interpretation by physician to follow. Impression 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 Patient wasseen and examined and discussed with the attending physician, Dr. Love. Aspirin was given en route. A cardiac work up was ordered. Troponin was 8. EKG was unchanged. Giventhe patient's recurrent symptoms and recent ED visit, admission was recommended. Dr. Crouch, hospitalist, accepted the patient for admission. A cardiology consult was placed. Patient was admitted to TCU in stable condition. ED Clinical Impression: Chest pain, unspecified type (primary encounter diagnosis) Critical Care time Condition at Discharge/Transfer from Department: Stable This chart was completed using voice recognition technology and may contain unintended errors Faby Ureña PA-C 07/19/18 1855 Cosigned by Negra Love MD at 07/21/2018 7:45 AM EDT Associated attestation - Negra Love MD - 07/21/2018 7:45 AM EDT This chart was completed using voice recognition technology and may contain unintended errors documented in this encounter Miscellaneous Notes * Utilization Review Notes - Silva Singleton RN - 07/20/2018 1:49 PM EDT Continued stay review +OBV order on chart and EM Cardiology note 07/20/18: Stress results reviewed. Nonischemic EKG and perfusion imaging. On ranexa and imdur 60 mgs daily, will increase imdur to 120 mgs daily at d/c ?? OP follow up with Dr. Devries in 2 weeks for re evaluation. Stable for discharge from cards standpoint when ok with others. * Utilization Review Notes - Silva Singleton RN - 07/20/2018 8:40 AM EDT Admit review. ED for chest pain +OBV order on chart and EM Presents with central chest pain. This is described as stabbing and has been constant over the last3 hours. She reports some tingling in her arm, but denies any pain radiating into her neck. Triage report does mention pain radiating into her jaw at times. Patient was seen in the ED 2 weeks ago forsimilar symptoms. CXR- no acute finding Troponin- 9, 8, 9 EKG- sinus bradycardia Cardiology consult documented in this encounter Plan of Treatment Not on file documented as of this encounter Goals Goal Patient Goal Type Associated Problems Recent Progress Patient-Stated? Author Blood Pressure < 140/90 Blood Pressure 124/52(2018 4:00 PM EDT) No Silva Mathew RMA BMI (Calculated) < 30 General 35.6(10/06/19 19 4:56 PM EDT) No Silav Mathew RMA Maintain a healthy diet, exercise regularly and maintain an ideal body weight General No Silva Mathew RMA HEMOGLOBIN A1C < 7.0 Result Component 6.6( 9 9:49 AM EST) No Silva Mathew RMA documented as of this encounter Procedures Procedure Name Priority Date/Time Associated Diagnosis Comments GLUCOSE METER POC Routine 07/20/2018 12:38 PM EDT SCANNED RADIOLOGY REPORT 07/20/2018 12:27 PM EDT NM MYOCARDIAL PERFUSION SPECT STRESS AND REST STAT 07/20/2018 11:56 AM EDT ECG AND WAVEFORMS - TELEMETRY Routine 07/20/2018 11:[address] STRESS TEST LEXISCAN STAT 07/20/2018 10:45 AM EDT SCANNED EKG 07/20/2018 8:39 AM EDT EK EKG 12 LEAD Routine 07/20/2018 12:05 AM EDT TROPONIN-T HIGH SENSITIVITY BASELINE W/ REFLEX Timed 07/19/2018 8:18 PM EDT IP CONSULT TO CARDIOLOGY Routine 07/19/2018 6:07 PM EDT Procedure Note - Mohamud Childers MD - 07/20/2018 8:58 AM EDTThis note is in progress. Name: Faby Palm Inpatient Consult to Cardiology - Chest Pain; Stat Consult Requested: No Consult performed by: MOHAMUD CHILDERS Consult ordered by: NEGRA LOVE Assessment/Recommendations: Chest pain syndrome atypical with intermediateprobability of coronary artery disease Known coronary artery disease with borderline lesion involving mid LAD andRCA Hypertension Status post previous ablation for atrial flutter off beta-blockerssecondary to bradycardia Degenerative joint disease History of previous CVA Discussion and plan 68-year-old woman with known coronary artery disease whopresents with chest discomfort more or less continuous no specificaggravating or relieving factors has ruled out for myocardial infarctionand acute coronary syndrome will proceed with myocardial perfusion forfurther risk stratification in the meantime continue to optimize medicalmanagement further plan per stress perfusion. Consider adding Long acting nitrates Imdur 30 mg daily PCP:Sharee Segovia ARNP 68-year-old woman with a history of known coronary arterydisease status post previous coronary arteriography that revealed 50 to60% lesion involving mid LAD nonischemic by FFR also had ostial RCAdisease which was also nonischemic by FFR preserved LV systolic functionwho presents to the hospital with chief complaints of retrosternal chestdiscomfort that radiates to her left shoulder and arm no specificaggravating or relieving factor pain does get worse intermittentlypresently chest pain free with nitroglycerin patch EKG did not show anydynamic changes serial troponins are so far unremarkable She denies any shortness of breath otherwise. No palpitations no fall nobleeding issues was previously taken off beta-blockers secondary tobradycardia and fatigue. Past Medical History: Diagnosis Date ? ? Atrial flutter (HCC) EPS, AFL Ablation on 12/31/[address] Tee ? ? CHF (congestive heart failure) (HCC) ? ? COPD (chronic obstructive pulmonary disease) (HCC) ? ? DDD (degenerative disc disease) ? ? Diabetes mellitus (HCC) ? ? Hypertension ? ? Intellectual disability 05/03/2017 ? ? OR (myocardial infarction) (HCC) ? ? RLS (restless [...] left total knee replacement 1999 ? ? LUNG SURGERY partial removal ? ? ORTHOPEDIC SURGERY ? ? TONSILLECTOMY ? ? UPPER GASTROINTESTINAL ENDOSCOPY N/A 04/03/2015 ESOPHAGOGASTRODUODENOSCOPY WITH BIOPSY AND BRUSHING; Surgeon: Chrissy Brown MD; Location: [facility]; Service: Endoscopy Family History Problem Relation Age of Onset ? ? Cancer Mother larnyx cancer ? ? Colon Cancer Mother ? ? Heart Disease Sister ? ? No Known Problems Son ? ? Seizures Daughter Social History Social History ? ? Marital status: Spouse name: N/A ? ? Number of children: 2 ? ? Years of education: N/A Occupational History ? ? retired Social History Main Topics ? ? Smoking status: Never Smoker ? ? Smokeless tobacco: Never Used ? ? Alcohol use No Comment: wednesday mass ? ? Drug use: No ? ? Sexual activity: No Other Topics Concern ? ? None Social History Narrative Lives at [facility] Has two children and two grandchildren. Is Review of Systems Constitutional: Negative. HENT: Negative. Eyes: Negative. Respiratory: Negative. Cardiovascular: Positive for chest pain. Negative for palpitations,orthopnea, claudication, leg swelling and PND. Gastrointestinal: Positive for abdominal pain and heartburn. Negative fornausea and vomiting. Genitourinary: Negative. Musculoskeletal: Negative. Skin: Negative. Vitals: 07/19/18 1959 07/19/18 2025 07/19/18 2337 07/20/18 0400 BP: 127/49 150/60 154/55 148/68 BP Location: Right arm Right arm Right arm Patient Position: Semi Fowlers Semi Fowlers Semi Fowlers Pulse: 56 62 60 Resp: 17 25 02 Temp: 98.1 ??F (36.7 ??C) 98.6 ??F (37 ??C) 98 ??F (36.7 ??C) TempSrc: Oral Oral Oral SpO2: 97% 96% 97% Physical Exam EXAM: Alert and oriented. VSS Neck: Supple no JVP CVS: RRR no murmur no rub. RESP: B/L clear no wheezing or crackles Abdo: Soft non tender sounds heard normally. CONSUMER PRODUCT ADVISOR: Intact. No focal defecit Extremities: Pulses well palpable, no cyanosis no edema. Lab and radiographic data reviewed. ECG no dynamic changes Thank you for asking me to participate in your patient's care. Mohamud Childers MD 07/20/2018 TROPONIN-T HIGH SENSITIVITY BASELINE W/ REFLEX Timed 07/19/2018 4:30 PM EDT XR ELBOW LEFT AP LATERAL AND OBLIQUES EMMY 07/19/2018 4:24 PM EDT XR CHEST AP PORTABLE EMMY 07/19/2018 2:41 PM EDT TROPONIN-T HIGH SENSITIVITY BASELINE W/ REFLEX STAT 07/19/2018 2:13 PM EDT CBC WITH DIFF STAT 07/19/2018 2:13 PM EDT BASIC METABOLIC PANEL STAT 07/19/2018 2:13 PM EDT EK EKG 12 LEAD STAT 07/19/2018 1:38 PM EDT documented in this encounter Results * GLUCOSE METER POC (07/20/2018 12:38 PM EDT) Glucose Meter POC 88 70 - 100 mg/dL 07/20/2018 12:44 PM EDT [facility] Sample Type Capillary 07/20/2018 12:44 PM EDT [facility] Patient Status Non-Critical Patient 07/20/2018 12:44 PM EDT [facility] Blood BLOOD SPECIMEN / Unknown 07/20/2018 12:38 PM EDT 07/20/2018 12:44 PM EDT us Jesse Crouch MD POINT OF CARE TEST ORDERABL ES Final Result [facility] [address] [place] [address] * SCANNED RADIOLOGY REPORT (07/20/2018 12:27 PM EDT) Anatomical Region Laterality Modality Other 07/20/2018 12:2 7 PM EDT us Unknown Unknown IMG DIAGNOSTIC IMAGING ORDERABLE S Final Result * NM MYOCARDIAL PERFUSION SPECT STRESS AND REST (07/20/2018 11:56 AM EDT) Anatomical Region Laterality Modality Nuclear Medicine 07/20/2018 9:27 AM EDT Impressions 07/20/2018 12:45 PM EDT IMPRESSIONS Normal left ventricular perfusion study. ?? No evidence of myocardial ischemia or myocardial infarction. ?? Normal left ventricular size and function. ?? Narrative Procedure Note Mohamud Childers MD - 07/20/2018 IMPRESSION IMPRESSIONS Normal left ventricular perfusion study. No evidence of myocardial ischemia or myocardial infarction. Normal left ventricular size and function. Mohamud Childers MD IMG NM CARDIAC ORDERABLES Final Result * ECG AND WAVEFORMS - TELEMETRY (07/20/2018 11:48 AM EDT) Pathologist [facility] ECG INTERPRET NSR [facility] DIRECTOR BIOLOGY APPROVED Yes [facility] 07/20/2018 11:4 8 AM EDT Narrative [facility] - 07/20/2018 11:55 AM EDT ??WI 0.16 ??QRS 0.10 ??QT 0.38 ??See Clinical Report link for waveform capture us Unknown Provider POINT OF CARE CARDIOLOGY Final Result [facility] [address] [place] [address] * ST STRESS TEST LEXISCAN (07/20/2018 10:45 AM EDT) Anatomical Region Laterality Modality Cardiac Stress T esting 07/20/2018 10:1 8 AM EDT Impressions 07/20/2018 12:40 PM EDT ? [facility] ? Test Date: ?2018-07-20 Pat Name: ? FABY PALM ?Department: ?? DEPID ? Room: ? E3606 Gender: ? Female ? Railcar Switchman: ?? MARTA THIBODEAUX DOB: ?1950 ? Requested By: MOHAMUD TORRES Order Number: [id number] ?Reading : ?? Calderon Childers MD ? Interpretive Statements Stress Test Lexiscan Reason for Exam: cp Resting HR: 64 ?? Peak HR: 95 Resting B/P 159/78 ?? PeaK B/P 167/78 1. Lexiscan 0.4 mg was given IV push at 30 seconds into protocol. 2. Lexiscan injection was done ___with _x__without low level exercise. 3. Termination of test due to protocol completion __x_ yes ___ no. 4. Symptoms: increased chest pain. 5. Aminophylline given _x_ no ___ yes 6. Myoview scan report pending. 7. Resting EKG: NSR 8. Arrhythmias: None 9. Conclusion: Stress ECG is negative for ischemia Electronically Signed On 07-20-2018 12:40:43 EDT by Calderon Childers MD Narrative Procedure Note Mohamud Childers MD - 07/20/2018 IMPRESSION [facility] Test Date: 2018-07-20 Pat Name: FABY PALM Department: DEPID Room: E3606 Gender: Female Railcar Switchman: MARTA THIBODEAUX, : 1950 Requested By: MOHAMUD TORRES Order Number: [id number] Reading MD: Calderon Childers MD Interpretive Statements Stress Test Lexiscan Reason for Exam: cp Resting HR: 64 Peak HR: 95 Resting B/P 159/78 PeaK B/P 167/78 1. Lexiscan 0.4 mg was given IV push at 30 seconds into protocol. 2. Lexiscan injection was done ___with _x__without low level exercise. 3. Termination of test due to protocol completion __x_ yes ___ no. 4. Symptoms: increased chest pain. 5. Aminophylline given _x_ no ___ yes 6. Myoview scan report pending. 7. Resting EKG: NSR 8. Arrhythmias: None 9. Conclusion: Stress ECG is negative for ischemia Electronically Signed On 07-20-2018 12:40:43 EDT by Calderon Childers MD us Mohamud Childers MD IMG STRESS ORDERABLES Final Res ult * SCANNED EKG (07/20/2018 8:39 AM EDT) Anatomical Region Laterality Modality Other 07/20/2018 8:39 AM EDT us Unknown Unknown IMG ECG ORDERABLES Final Result * EK EKG 12 LEAD (07/20/2018 12:05 AM EDT) Anatomical Region Laterality Modality Electrocardiogra phy 07/20/2018 8:07 AM EDT Impressions 07/20/2018 2:32 PM EDT ? [facility] ? Test Date: ?2018-07-20 Pat Name: ? FABY PALM ?Department: ?? DEPID ? Room: ? E3606 Gender: ? Female ? Railcar Switchman: ?? 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 Requested By: NEGRA Platt Order Number: [id number] ?Reading : ?? Calderon Childers MD ? Measurements Intervals ?[place] ? Rate: ? 55 ? P: ?76 WI: ? 166 ?QRS: ? QRSD: ? 92 ? T: ?81 QT: ? 439 ? QTc: ?421 ? Interpretive Statements SINUS BRADYCARDIA LOW QRS VOLTAGE IN PRECORDIAL LEADS INFERIOR MYOCARDIAL INFARCTION, PROBABLY OLD ANTEROSEPTAL MYOCARDIAL INFARCTION, PROBABLY OLD No significant change from previous Electronically Signed On 07-20-2018 14:32:58 EDT by Calderon Childers MD Narrative Procedure Note Mohamud Childers MD - 07/20/2018 [facility] Date: 2018-07-20 Pat Name: FABY PALM Department: DEPID Room: E3606 Gender: Female Railcar Switchman: [facility] : 1950 Requested By: NEGRA Platt Order Number: [id number] Teresa MD: Calderon Childers MD Measurements Intervals [place] Rate: 55 P: 76 WI: 166 QRS: QRSD: 92 T: 81 QT: 439 QTc: 421 Interpretive Statements SINUS BRADYCARDIA LOW QRS VOLTAGE IN PRECORDIAL LEADS INFERIOR MYOCARDIAL INFARCTION, 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 [email or web address]://[email or web address]/topic/clinical-[email or web address] Blood VENOUS BLOOD / Unknown Venipuncture / Unknown 07/19/2018 8:18 PM EDT 07/19/2018 8:21 PM EDT Narrative [facility] - 07/19/2018 8:41 PM EDT Ingestion of charles doses of biotin (>5 mg/day) taken within 8 hours of drawing blood sample can interfere with this immunoassay test. Negra Love MD CHEMISTRY ORDERABLES Final Result [facility] [address] [place] [address] * TROPONIN-T HIGH SENSITIVITY (07/19/2018 4:30 PM EDT) [id number] 8 <14 ng/L 07/19/2018 4:52 PM EDT [facility] Comment: See the website below for rule out OR care pathway, conditions other than AMI that can cause elevated hs cTnT, and comparison of values from the 4th and 5th generation Rob tests. [email or web address]://[email or web address]/topic/clinical-[email or web address] Blood VENOUS BLOOD / Unknown Venipuncture / Unknown 07/19/2018 4:30 PM EDT 07/19/2018 4:33 PM EDT Narrative [facility] - 07/19/2018 4:52 PM EDT Ingestion of charles doses of biotin (>5 mg/day) taken within 8 hours of drawing blood sample can interfere with this immunoassay test. Negra Love MD CHEMISTRY ORDERABLES Final Result [facility] [address] [facility] [place] [address] * XR ELBOW LEFT AP LATERAL AND OBLIQUES (07/19/2018 4:24 PM EDT) Anatomical Region Laterality Modality Elbow Radiographic Whit ging 07/19/2018 4:24 PM EDT Impressions 07/19/2018 4:36 PM EDT No acute bony abnormality of the elbow. - - Narrative 07/19/2018 4:36 PM EDT XR ELBOW LEFT AP LATERAL AND OBLIQUES, ??07/19/2018 4:24 PM CLINICAL HISTORY: ??All with elbow pain. COMPARISON: ??None. PROCEDURE COMMENTS: Routine views. FINDINGS: ?? No visible fracture or malalignment. ??No fat pad displacement to suggest effusion. Joint spaces are maintained. Soft tissue swelling overlying the olecranon region. Procedure Note Luis E Wayne MD - 07/19/2018 XR ELBOW LEFT AP LATERAL AND OBLIQUES, 07/19/2018 4:24 PM CLINICAL HISTORY: All with elbow pain. COMPARISON: None. PROCEDURE COMMENTS: Routine views. FINDINGS: No visible fracture or malalignment. No fat pad displacement to suggest effusion. Joint spaces are maintained. Soft tissue swelling overlying theolecranon region. IMPRESSION: No acute bony abnormality of the elbow. - - Negra Love MD IMG DIAGNOSTIC IMAGING JENI JOHNSON Final Result * XR CHEST AP PORTABLE (07/19/2018 2:41 PM EDT) Anatomical Region Laterality Modality Chest Radiographic Whit ging 07/19/2018 2:41 PM EDT Impressions 07/19/2018 3:07 PM EDT No acute finding. - - Narrative 07/19/2018 3:07 PM EDT XR CHEST AP PORTABLE, ??07/19/2018 2:41 PM CLINICAL HISTORY: ??-CHEST PAIN COMPARISON: ??06/30/2018 PROCEDURE COMMENTS: AP portable technique. FINDINGS: Heart size borderline but stable. Lungs are clear. Procedure Note Luis E Wayne MD - 07/19/2018 XR CHEST AP PORTABLE, 07/19/2018 2:41 PM CLINICAL HISTORY: -CHEST PAIN COMPARISON: 06/30/2018 PROCEDURE COMMENTS: AP portable technique. FINDINGS: Heart size borderline but stable. Lungs are clear. IMPRESSION: No acute finding. - - Negra Love MD IMG DIAGNOSTIC IMAGING ORDE RABLES Final Result * TROPONIN-T HIGH SENSITIVITY (07/19/2018 2:13 PM EDT) Pathologist [facility] bb-[id number]-B 9 <14 ng/L 07/19/2018 2:43 PM EDT [facility] Comment: See the website below for rule out OR care pathway, conditions other than AMI that can cause elevated hs cTnT, and comparison of values from the 4th and 5th generation Rob tests. [email or web address]/clinical-[email or web address] Blood VENOUS BLOOD / Unknown Venipuncture / Unknown 07/19/2018 2:13 PM EDT 07/19/2018 2:17 PM EDT Narrative [facility] - 07/19/2018 2:43 PM EDT Ingestion of charles doses of biotin (>5 mg/day) taken within 8 hours of drawing blood sample can interfere with this immunoassay test. Negra Love MD CHEMISTRY ORDERABLES Final Result [facility] [address] [place] [address] * (ABNORMAL) BASIC METABOLIC PANEL (07/19/2018 2:13 PM EDT) Pathologist [facility] Sodium 140 136 - 145 mmol/L 07/19/2018 2:43 PM EDT [facility] Potassium 4.6 3.5 - 5.0 mmol/L 07/19/2018 2:43 PM EDT [facility] Chloride 101 98 - 107 mmol/L 07/19/2018 2:43 PM EDT [facility] Total CO2 28 22 - 29 mmol/L 07/19/2018 2:43 PM EDT [facility] Anion Gap 11 7 - 16 mmol/L 07/19/2018 2:43 PM EDT [facility] Calcium 9.8 8.8 - 10.4 mg/dL 07/19/2018 2:43 PM EDT [facility] Glucose Lvl 157(H) 82 - 100 mg/dL 07/19/2018 2:43 PM EDT [facility] BUN 22 8 - 23 mg/dL 07/19/2018 2:43 PM T [facility] Creatinine 1.29 0.51 - 1.30 mg/dL 07/19/2018 2:43 PM EDT [facility] GFR Afr Am 50(L) >=60 mL/min/1.7 3 m2 07/19/2018 2:43 PM T [facility] GFR Non Afr Am 43(L) >=60 mL/min/1.7 3 m2 07/19/2018 2:43 PM EDT [facility] Comment: This estimated GFR was [...] VENOUS BLOOD / Unknown Venipuncture / Unknown 07/19/2018 2:13 PM EDT 07/19/2018 2:17 PM EDT Negra Love MD CHEMISTRY ORDERABLES Final Result [facility] [address] [place] [address] * CBC WITH DIFF (07/19/2018 2:13 PM EDT) WBC 7.3 4.0 - 11.0 x10(3)/mcL 07/19/2018 2:21 PM EDT [facility] RBC 4.11 3.80 - 5.10 x10(6)/mcL 07/19/2018 2:21 PM EDT [facility] Hgb 12.3 12.0 - 15.6 g/dL 07/19/2018 2:21 PM EDT [facility] Hct 37.9 35.7 - 45.9 % 07/19/2018 2:21 PM EDT [facility] MCV 92.3 82.5 - 99.8 fL 07/19/2018 2:21 PM EDT [facility] MCH 30.0 27.0 - 34.3 pg 07/19/2018 2:21 PM EDT [facility] MCHC 32.5 32.1 - 35.3 g/dL 07/19/2018 2:21 PM EDT [facility] RDW 14.0 11.5 - 15.0 % 07/19/2018 2:21 PM EDT [facility] Platelet 165 144 - 423 x10(3)/mcL 07/19/2018 2:21 PM EDT [facility] MPV 9.4 6.8 - 10.8 fL 07/19/2018 2:21 PM EDT [facility] Neut Percent 72.8 % 07/19/2018 2:21 PM EDT [facility] Lymph Percent 18.9 % 07/19/2018 2:21 PM EDT [facility] [place] Percent 4.6 % 07/19/2018 2:21 PM EDT [facility] Eos Percent 3.1 % 07/19/2018 2:21 PM EDT [facility] Baso Percent 0.6 % 07/19/2018 2:21 PM EDT [facility] Neut # 5.3 1.8 - 7.7 x10(3)/mcL 07/19/2018 2:21 PM EDT [facility] Lymph # 1.4 0.6 - 4.8 x10(3)/mcL 07/19/2018 2:21 PM EDT [facility] [place] # 0.3 0.0 - 1.3 x10(3)/mcL 07/19/2018 2:21 PM EDT [facility] Eos# 0.2 0.0 - 0.5 x10(3)/mcL 07/19/2018 2:21 PM EDT [facility] Baso # 0.0 0.0 - 0.2 x10(3)/mcL 07/19/2018 2:21 PM EDT [facility] Blood VENOUS BLOOD / Unknown Venipuncture / Unknown 07/19/2018 2:13 PM EDT 07/19/2018 2:17 PM EDT Negra Love MD HEMATOLOGY ORDERABLES Final Result Performing Organization Address [facility]/State/[facility] Co de Phone Number [address] [address] * EK EKG 12 LEAD (07/19/2018 1:38 PM EDT) Anatomical Region Laterality Modality Electrocardiogra phy 07/19/2018 1:43 PM EDT Impressions 07/20/2018 9:19 PM EDT ? [facility] ? Test Date: ?2018-07-19 Pat Name: ? FABY PALM ?Department: ?? DEPID ? Room: ? E3606 Gender: ? Female ? Railcar Switchman: ?? Oneal : ?1950 ? Requested By: [facility] Order Number: [id number] ?Reading MD: ?? Calderon Childers MD ? Measurements Intervals ?[place] ? Rate: ? 50 ? P: ?81 WI: ? 177 ?QRS: ? QRSD: ? 82 ? T: ?63 QT: ? 448 ? QTc: ?410 ? Interpretive Statements SINUS BRADYCARDIA LOW QRS VOLTAGE IN PRECORDIAL LEADS INFERIOR MYOCARDIAL INFARCTION, PROBABLY OLD Electronically Signed On 07-20-2018 21:19:35 EDT by Calderon Childers MD Narrative Procedure Note Mohamud Childers MD - 07/20/[address] [facility] Test Date: 2018-07-19 Pat Name: FABY PALM Department: DEPID Room: E3606 Gender: Female Railcar Switchman: Oneal : 1950 Requested By: [facility] Order Number: [id number] Reading MD: Calderon Childers MD Measurements Intervals [place] Rate: 50 P: 81 WI: 177 QRS: QRSD: 82 T: 63 QT: 448 QTc: 410 Interpretive Statements SINUS BRADYCARDIA LOW QRS VOLTAGE IN PRECORDIAL LEADS INFERIOR MYOCARDIAL INFARCTION, PROBABLY OLD Electronically Signed On 07-20-2018 21:19:35 EDT by Calderon Childers MD Negra Love MD IMG ECG ORDERABLES Final Re sult documented in this encounter Visit Diagnoses Diagnosis Chest pain- Primary Chest pain, unspecified Chest pain, unspecified type Chronic diastolic CHF (congestive heart failure) (HCC) Essential hypertension Unspecified essential hypertension Schizoaffective disorder, depressive type (HCC) Schizoaffective disorder, unspecified condition ASHD (arteriosclerotic heart disease) Coronary atherosclerosis of unspecified type of vessel, [place] or graft Chest pain at rest Chest pain, unspecified documented in this encounter Administered Medications Inactive Administered Medications - up to 1 most recent administrations Medication Order MAR Action Action Date Dose Rate Site acetaminophen (TYLENOL) suppository 650 mg 650 mg, Rectal, EVERY 4 HOURS PRN, Starting on Wed07/19/18 at 1807, Until Wed07/20/18 at 2019, Fever, Headaches, Maximum adult dose of acetaminophen is 4000 mg from all sources in 24 hours. acetaminophen (TYLENOL) tablet 650 mg 650 mg, Oral, EVERY 4 HOURS PRN, Starting on Wed07/19/18 at 1807, Until Wed07/20/18 at 2019, Fever, Headaches, Maximum adult dose of acetaminophen is 4000 mg from all sources in 24 hours. Given 07/19/2018 11:41 PM EDT 650 mg dextrose 50 % solution 25 mL 25 mL, Intravenous, PRN, Starting on Wed07/20/18 at 0924, Until Wed07/20/18 at 2019, Low blood sugar, If FSBS less than 70 mg/dl and patient cannot take orally, Check FSBS every 30 minutes and repeat 25 mL of D50 IV push and notify physician if FSBS less than 70 mg/dL VESICANT glucagon (human recombinant) (GLUCAGEN) injection 1 mg 1 mg, Intramuscular, PRN, Starting on Wed07/20/18 at 0924, Until Wed07/20/18 at 2019, Low blood sugar, If FSBS less than 70 mg/dl, patient cannot take orally and without IV access, If patient is without IV access, give Glucagon 1 mg Intramuscularly, insert IV and call physician. insulin aspart U-100 (NovoLOG) injection 1-10 Units 1-10 Units, Subcutaneous, 4 TIMES DAILY WITH MEALS, First dose on Wed07/20/18 at 0930, Until Discontinued, Medium dose algorithm: FSBS Correction [...] least 3 hours. Waste Sort Code = [facility] insulin glargine U-100 (LANTUS) injection 28 Units 28 Units, Subcutaneous, EVERY EVENING (INSULIN), First dose on Wed07/19/18 at 2114, Until Discontinued, Do not mix with other insulins Waste Sort Code = [facility] Given 07/19/2018 10:58 PM EDT 28 Units Abdominal Tissue melatonin tablet 5 mg 5 mg, Oral, ONCE, 1 dose, On Wed07/19/18 at 2115 Given 07/19/2018 9:41 PM EDT 5 mg nitroGLYCERIN (NITROGLYN) 2 % ointment 1 Inch 1 Inch, Topical, ONCE, 1 dose, On Wed07/19/18 at 1430, Wipe off old dose, apply to chest wall Patch Applied 07/19/2018 2:51 PM EDT 1 Inch nitroGLYCERIN (NITROGLYN) 2 % ointment 1 Inch 1 Inch, Topical, EVERY 6 HOURS SCHEDULED (4 times per day), First dose on Wed07/19/18 at 1815, Until Discontinued, Wipe off old dose, apply to chest wall. Patch Applied 07/20/2018 5:09 AM EDT 1 Inch ondansetron (ZOFRAN) injection 4 mg 4 mg, Intravenous, EVERY 6 HOURS PRN, Starting on Wed07/19/18 at 1807, Until Wed07/20/18 at 2019, Nausea ondansetron (ZOFRAN) tablet 4 mg 4 mg, Oral, EVERY 6 HOURS PRN, Starting on Wed07/19/18 at 1807, Until Wed07/20/18 at 2019, Nausea regadenoson (LEXISCAN) injection 0.4 mg 0.4 mg, Intravenous, ONCE, 1 dose, On Wed07/20/18 at 0945, Stress Meds Given 07/20/2018 10:30 AM EDT 0.4 mg sodium chloride 0.9% syringe Intravenous, PRN, Starting on Wed07/20/18 at 1055, Until Wed07/20/18 at 2019, Line Care, Flush with 5-10 mL saline pre/post IVP, and 5 mL prior to IVPB or blood product administration., Stress Meds Given 07/20/2018 10:30 AM EDT sodium chloride 0.9% syringe Intravenous, ONCE PRN, 1 dose, Starting on Wed07/20/18 at 0938, Until Wed07/20/18 at 0938, Line Care, Flush every shift or after IV medication, Radiology Given 07/20/2018 9:38 AM EDT 20 mL Rj-11l-kysxplgrdhe (MYOVIEW) injection 8-45 millicurie 8-45 millicurie, Intravenous, ONCE PRN, 1 dose, Starting on Wed07/20/18 at 0938, Until Wed07/20/18 at 1120, Radiology Procedure, Administration dose must be within 10% of the ordered dose for radiopharmaceutical medications., Radiology Given 07/20/2018 11:20 AM EDT 30.3 millicuries Qg-75d-yvafvsaljqw (MYOVIEW) injection 8-45 millicurie 8-45 millicurie, Intravenous, ONCE PRN, 1 dose, Starting on Wed07/20/18 at 0938, Until Wed07/20/18 at 0938, Radiology Procedure, Administration dose must be within 10% of the ordered dose for radiopharmaceutical medications., Radiology Given 07/20/2018 9:38 AM EDT 10.3 millicuries traZODone (DESYREL) tablet 50 mg 50 mg, Oral, ONCE, 1 dose, On Wed07/19/18 at 2115, If melatonin not effective Take shortly after a meal or light snack. Given 07/19/2018 9:15 PM EDT 50 mg documented in this encounter Discontinued Medications Medication Sig Discontinue Reason Start Date End Da te isosorbide mononitrate (IMDUR) 60 mg Oral Tablet Sustained Release 24 hr TAKE ONE TABLET BY MOUTH ONCE DAILY Stop Taking at Discharge 03/24/2017 07/20/2018 documented as of this encounter Active and Recently Administered Medications Times are shown in EDT. Scheduled Medication Order 07/18/2018 07/19/2018 07/20/2018 insulin aspart U-100 (NovoLOG) injection 1-10 Units 1-10 Units, Subcutaneous, 4 TIMES DAILY WITH MEALS, First dose on Wed07/20/18 at 0930, Until Discontinued, Medium dose algorithm: FSBS Correction [...] least 3 hours. Waste Sort Code = [facility] 0983 (Not Given - Provider: Destini Rogers RN - Reason: Transfer to a Procedural area)1200 (Not Given - Provider: Destini Rogers RN - Reason: Order parameters not met) insulin glargine U-100 (LANTUS) injection 28 Units 28 Units, Subcutaneous, EVERY EVENING (INSULIN), First dose on Wed07/19/18 at 2115, Until Discontinued, Do not mix with other insulins Waste Sort Code = [facility] 3458 (Given - Provider: Diane Abarca RN) isosorbide mononitrate (IMDUR) CR tablet 120 mg 120 mg, Oral, DAILY, First dose on Wed07/20/18 at 1500, Until Discontinued 1500 (Due) melatonin tablet 5 mg (COMPLETED) 5 mg, Oral, ONCE, 1 dose, On Wed07/19/18 at 2115 2141 (Given - Provider: Diane Abarca RN) nitroGLYCERIN (NITROGLYN) 2 % ointment 1 Inch (COMPLETED) 1 Inch, Topical, ONCE, 1 dose, On Wed07/19/18 at 1430, Wipe off old dose, apply to chest wall 1451 (Patch Applied - Provider: Zoie Monge) nitroGLYCERIN (NITROGLYN) 2 % ointment 1 Inch (CANCELED) 1 Inch, Topical, EVERY 6 HOURS SCHEDULED (4 times per day), First dose on Wed07/19/18 at 1815, Until Discontinued, Wipe off old dose, apply to chest wall. 2100 (Not Given - Provider: Diane Abarca RN - Reason: Other) 0000 (Not Given - Provider: Diane Abarca RN - Reason: Patient/family declined)0509 (Patch Applied - Provider: Diane Abarca RN)1200 (Not Given - Provider: Destini Rogers RN - Reason: Patient/family declined) ranolazine (RANEXA) SR tablet 1,000 mg 1,000 mg, Oral, EVERY 12 HOURS SCHEDULED (2 times per day), First dose on Wed07/20/18 at 2100, Until Discontinued regadenoson (LEXISCAN) injection 0.4 mg (COMPLETED) 0.4 mg, Intravenous, ONCE, 1 dose, On Wed07/20/18 at 0945, Stress Meds 0945 (Canceled Entry - Provider: Destini Rogers, RN)1030 (Given - Provider: Marta Thibodeaux, ROLF) traZODone (DESYREL) tablet 50 mg (CANCELED) 50 mg, Oral, ONCE, 1 dose, On Wed07/19/18 at 2115, If melatonin not effective Take shortly after a meal or light snack. 2114 (Given - Provider: Diane Abarca RN) PRN Medication Order 07/18/2018 07/19/2018 07/20/2018 acetaminophen (TYLENOL) suppository 650 mg(Linked Group 1) 650 mg, Rectal, EVERY 4 HOURS PRN, Starting on Wed07/19/18 at 1807, Until Wed07/20/18 at 2019, Fever, Headaches, Maximum adult dose of acetaminophen is 4000 mg from all sources in 24 hours. 2341 (See Alternative - Provider: Diane Abarca, ROLF) acetaminophen (TYLENOL) tablet 650 mg(Linked Group 1) 650 mg, Oral, EVERY 4 HOURS PRN, Starting on Wed07/19/18 at 1807, Until Wed07/20/18 at 2019, Fever, Headaches, Maximum adult dose of acetaminophen is 4000 mg from all sources in 24 hours. 2341 (Given - Provider: Diane Abarca RN) dextrose 50 % solution 25 mL 25 mL, Intravenous, PRN, Starting on Wed07/20/18 at 0924, Until Wed07/20/18 at 2019, Low blood sugar, If FSBS less than 70 mg/dl and patient cannot take orally, Check FSBS every 30 minutes and repeat 25 mL of D50 IV push and notify physician if FSBS less than 70 mg/dL VESICANT glucagon (human recombinant) (GLUCAGEN) injection 1 mg 1 mg, Intramuscular, PRN, Starting on Wed07/20/18 at 0924, Until Wed07/20/18 at 2019, Low blood sugar, If FSBS less than 70 mg/dl, patient cannot take orally and without IV access, If patient is without IV access, give Glucagon 1 mg Intramuscularly, insert IV and call physician. ondansetron (ZOFRAN) injection 4 mg(Linked Group 2) 4 mg, Intravenous, EVERY 6 HOURS PRN, Starting on Wed07/19/18 at 1807, Until Wed07/20/18 at 2019, Nausea ondansetron (ZOFRAN) tablet 4 mg(Linked Group 2) 4 mg, Oral, EVERY 6 HOURS PRN, Starting on Wed07/19/18 at 1807, Until Wed07/20/18 at 2019, Nausea sodium chloride 0.9% syringe Intravenous, PRN, Starting on Wed07/20/18 at 1055, Until Wed07/20/18 at 2019, Line Care, Flush with 5-10 mL saline pre/post IVP, and 5 mL prior to IVPB or blood product administration., Stress Meds 1030 (Given - Provider: Marta Thibodeaux RN) sodium chloride 0.9% syringe (COMPLETED) Intravenous, ONCE PRN, 1 dose, Starting on Wed07/20/18 at 0938, Until Wed07/20/18 at 0938, Line Care, Flush every shift or after IV medication, Radiology 0938 (Given - Provider: Fransisco Graner, TROLLEY CAR OPERATOR) Qy-[id number]-vxyddebfvmc (MYOVIEW) injection 8-45 millicurie (COMPLETED) 8-45 millicurie, Intravenous, ONCE PRN, 1 dose, Starting on Wed07/20/18 at 0938, Until Wed07/20/18 at 1120, Radiology Procedure, Administration dose must be within 10% of the ordered dose for radiopharmaceutical medications., Radiology 1120 (Given - Provider: Rome Zapata, TROLLEY CAR OPERATOR) Ul-49m-bexrfbxapes (MYOVIEW) injection 8-45 millicurie (COMPLETED) 8-45 millicurie, Intravenous, ONCE PRN, 1 dose, Starting on Wed07/20/18 at 0938, Until Wed07/20/18 at 0938, Radiology Procedure, Administration dose must be within 10% of the ordered dose for radiopharmaceutical medications., Radiology 0938 (Given - Provider: Fransisco Garner, [employer]OLLEY CAR OPERATOR) Linked Groups Order Group 1: acetaminophen (TYLENOL) tablet 650 mgJump to med 650 mg, Oral, EVERY 4 HOURS PRN, Starting on Wed07/19/18 at 1807, Until Wed07/20/18 at 2019, Fever, Headaches, Maximum adult dose of acetaminophen is 4000 mg from all sources in 24 hours. Or acetaminophen (TYLENOL) suppository 650 mgJump to med 650 mg, Rectal, EVERY 4 HOURS PRN, Starting on Wed07/19/18 at 1807, Until Wed07/20/18 at 2019, Fever, Headaches, Maximum adult dose of acetaminophen is 4000 mg from all sources in 24 hours. Group 2: ondansetron (ZOFRAN) tablet 4 mgJump to med 4 mg, Oral, EVERY 6 HOURS PRN, Starting on Wed07/19/18 at 1807, Until Wed07/20/18 at 2019, Nausea Or ondansetron (ZOFRAN) injection 4 mgJump to med 4 mg, Intravenous, EVERY 6 HOURS PRN, Starting on Wed07/19/18 at 1807, Until Wed07/20/18 at 2019, Nausea documented in this encounter Orders Medications Ordered That Gaurav ht Not Have Been Administered Count Last Ordered Date First Ordered Date albuterol (PROVENTIL HFA; VE NTOLIN HFA) INHALER 2 Puff 1 07/20/2018 aminophylline injection 125 mg 1 07/20/2018 dextrose 50 % solution 25 mL 1 07/20/2018 glucagon (human recombinant) (GLUCAGEN) injection 1 mg 1 07/20/2018 insulin aspart U-100 (NovoLO G) injection 1-10 Units 1 07/20/2018 isosorbide mononitrate (IMDU R) CR tablet 120 mg 1 07/20/2018 isosorbide mononitrate (IMDU R) CR tablet 30 mg 1 07/20/2018 nitroGLYCERIN (NITROSTAT) SL tablet 0.4 mg 07/20/2018 ranolazine (RANEXA) SR tablet 1,000 mg 1 sodium chloride 0.9% IV line flush 20-50 mL 1 07/20/2018 acetaminophen (TYLENOL) suppository 650 mg 1 07/19/2018 aspirin tablet 325 mg 07/19/2018 ondansetron (ZOFRAN) injection 4 mg 1 07/19 ondansetron (ZOFRAN) tablet 4 mg 1 07/20/19 19 traZODone (DESYREL) tablet 50 mg 1 07/20/19 19 Nursing Count Last Ordered Date First Orde red Date ADMISSION 1 07/19/2018 ED ENTER ADMISSION ORDER 1 07/19/2018 Consult Count Last Ordered Date First Orde red Date IP CONSULT TO CARDIOLOGY 1 07/19/2018 Transfer Count Last Ordered Date First Orde red Date BED REQUEST 1 07/19/2018 Discharge Count Last Ordered Date First Orde red Date DISCHARGE PATIENT 1 07/20/2018 documented in this encounter Additional Health Concerns Assessment Noted Time PHQ-9 Depression Total Score: 13 019 9:00 AM EST A fall risk assessment has been complete d for the patient 05/17/2018 8:17 AM EDT PHQ-2 Depression Total Score: 6 04/19/19 19 9:00 AM EST documented as of this encounter Care Teams Quiller Operator Relationship Specialty Start Date End Date Sharee Segovia APRN [address] [place] [id number] PCP - General Nurse Practitioner-Family 09/21/16 documented as of this encounter
--- OUTSIDE RECORDS SUMMARY | 2024-02-16 14:52 | XMS_ITS | Encounter Summary ---
Author [place] [address] Care Team Providers Care Drain Layer Name Role Phone Sharee Segovia APRN Primary Care Provider [phone] Reason for Visit * Reason Comments Psychiatric Evaluation pt presents from [facility] with reports of self harm. presents with a suicide note as well. Encounter Details Date Type Department Care Team (Late st Contact Info) Description 10/09/2017 12:34 PM EDT - 10/09/2017 3:30 PM EDT Emergency [place] Emergency [facility] Dr. Mantilla, [facility]17 Gregor Clayton MD Suicidal ideation (Primary Dx) Discharge Disposition: Psychiatric Hospital Social [...] Sign Reading Time Taken Comments Blood Pressure 134/66 10/09/2017 12:42 PM EDT Pulse 52 10/09/2017 12:42 PM EDT Temperature 36.7 ??C (98.1 ??F) 10/09/2017 12:44 PM E DT Respiratory Rate 18 10/09/2017 12:42 PM EDT Oxygen Saturation 94% 10/09/2017 12:42 PM EDT Inhaled Oxygen Concentration - - Weight - - Height - - Body Mass Index - - documented in this encounter Functional Status * Is the person deaf or does he/she have serious difficulty hearing? Answer Date of Assessment Author No 08/09/2017 9:08 AM Birdie Wilkinson RMA * Is the person blind or does he/she have serious difficulty seeing even when wearing glasses? Answer Date of Assessment Author No 08/09/2017 9:08 AM Birdie Wilkinson RMA * Does this person have serious difficulty walking or climbing stairs? Answer Date of Assessment Author Yes 08/09/2017 9:08 AM Birdie Wilkinson RMA * Does this person have difficulty dressing or bathing? Answer Date of Assessment Author No 08/09/2017 9:08 AM Birdie Wilkinson RMA * Because of a physical, mental or emotional condition, does this person have difficulty doing errands alone such as visiting a doctor's office or shopping? Answer Date of Assessment Author Yes 08/09/2017 9:08 AM Birdie Wilkinson RMA documented as of this encounter Mental Status * Because of a physical, mental or emotional condition, does this person have serious difficulty concentrating, remembering or making decisions? Answer Entry Date Author Yes 08/09/2017 9:08 AM Birdie Wilkinson RMA documented in this encounter Medications at Time of Discharge aspirin (ASPIRIN) 81 mg Oral Tablet, Chewable [...] daily (with meals). 60 Tab 5 04/04/2015 pantoprazole (PROTONIX) 40 mg Oral Tablet, Delayed Release (E.C.) Take 1 Tab by mouth daily. 30 Tab 2 09/21/2017 RANEXA 1,000 mg Oral Tablet Sustained Release 12 hrIndications:Sta ble angina (HCC) TAKE ONE TABLET BY MOUTH [...] by mouth daily. 30 Tab 02/23/2017 9 isosorbide mononitrate (IMDUR) 60 mg Oral Tablet Sustained Release 24 hr TAKE ONE TABLET BY MOUTH ONCE DAILY 30 Tab 1 03/24/2017 9 loperamide (IMODIUM) 2 mg Oral Capsule Take 2 mg by mouth 3 times daily as needed. 9 Melatonin 3 mg Oral Tablet Take 5 mg by mouth nightly. 9 metFORMIN XR (GLUCOPHAGE-XR) 500 mg Oral Tablet Sustained Release 24 hr Take 500 mg by mouth daily (with breakfast). 9 nitroGLYCERIN (NITROSTAT) 0.4 mg SL Tablet, SublingualIndicat ions:Angina pectoris (HCC) Place 1 Tab under the [...] Discharge Disposition Disposition Code Departure Means Destination [facility] documented in this encounter Progress Notes * Chaparro Brantley - 10/09/2017 5:08 PM EDT 10/09/17 1706 Pastoral Care Encounter Visited With Patient Date of visit 10/09/17 Visit Type Initial Crisis Visit ED Spiritual Needs Pentecostal? Tenriism Pastoral Care Issues Pastoral Care Issues Coping Well Coping Resources Jane Community;Jane;Family;Friends Pastoral Care Plan/Intervention Plan/Intervention Active Listening;Prayer * Caitlin Bonner RN - 10/09/2017 3:48 PM EDT Patient accepted to [facility]. [facility] to provide transport, ETA 1715. Kurt notified. documented in this encounter ED Notes * Aliya Vera RN - 10/09/2017 5:21 PM EDT [facility] to transport [facility]. * Aliya Vera RN - 10/09/2017 4:59 PM EDT Report received from Arslan Colby RN, pt awaiting transport to [facility]. * Arlsan Mcintyre RN - 10/09/2017 4:40 PM EDT Report to BEVERLEY Fernando. * Arslan Mcintyre RN - 10/09/2017 4:29 PM EDT Pt has eaten lunch, sitting in room resting quietly. Updated with plan of care. No other needs at this time. * Uriel Mauricio CSW - 10/09/2017 3:18 PM EDT Pt is a 67 yr old female who presented to the ED after writing a note to her boyfriend and then cutting her wrist with the intent to commit suicide. The note said she was going to do something so they'd realize they can't mess with people's lives. Pt is upset because she lives at the [facility] and she says that staff want to keep her and Rome apart, Rome is her boyfriend. Pt made a transverse cut to her right wrist, does not require stitches. She says she used scissors. Pt says she did intend to commit suicide and told another resident this who asked her about the letter. Ptdoes appear somewhat cognitively delayed. She has a small pink stuffed animal that she calls Little [place] because he gave it to her for Andrews's Day. Pt is A&Ox3. She presents as sad. She denies HI/AVHs. She denies prior suicide attempts. Last stay was in May 2017. Pt says she's also been to [facility] before, about 4 years ago because someonesaw me acting funny. She says she was having a reaction to Mayflower. Pt sees a therapist at [facility] but couldn't recall her name, saying it is a new therapist. Pt is very much centered about this Rome person, says her whole life revolves around him yet he's also involved with this other resident who is male. She seemed to not understand the seriousness of her actions today. She says that since the cut wasn't bad, she thought she could go home. Although in her letter it says that after she does what she's planning to do she'll have to go to the hospital. SW explained that although her cut isn't severe, the intent behind it is and her increased depression is as well. Pt wears depends, says she changes them herself. She brought some with her to the ED. Pt is diabetic and says she gives herself insulin. Pt reports that someone helps bathe her because where she lives doesn't have shower chairs and she's afraid she'll fall in the shower. She walks with a walker. Recommendation: admission, referral to [facility] Consulted: Dr. Clayton * Arslan Mcintyre RN - 10/09/2017 1:07 PM EDT Pt presents from [facility]. Pt has a boyfriend, Rome, who shes been dating for a few years. Reports of getting angry today and made a superficial cut to her right wrist. Pt states this is herfirst time cutting. Pt also has wrote a note to Rome as well. Pt denies any SI at this time just states she was frusterated. Pt's depends changed and put into gown due to paper scrubs not being able to fit. Pt cooperative at this time. Will continue to monitor. * Gregor Clayton MD - 10/09/2017 12:34 PM EDT CHIEF COMPLAINT Chief Complaint Patient presents with ??? Psychiatric Evaluation pt presents from [facility] with reports of self harm. presents with a suicide note as well. HPI Faby Palm is a 67 y.o. female who presentsFor psychiatric evaluation. Patient was sent from the [facility] feeling suicidal. She states she is upset because she cannot D with another resident who is there, a male. It is because the staff will not let them interact and he is in a relationship with another male. She attempted to cut her wrist and wrote a suicide note which is with her. She knew she was trying to kill herself. She has a history of schizoaffective disorder no drug or alcohol use. REVIEW OF SYSTEMS See HPI for further details. Review of systems negative for vomiting, all else otherwise negative. PAST MEDICAL HISTORY Past Medical History: Diagnosis Date ??? Atrial flutter (HCC) EPS, AFL Ablation on 12/31/[address] Tee ??? CHF (congestive heart failure) (HCC) ??? COPD (chronic obstructive pulmonary disease) (HCC) ??? DDD (degenerative disc disease) ??? Diabetes mellitus (HCC) ??? Hypertension ??? Intellectual disability 05/03/2017 ??? IA (myocardial infarction) (HCC) ??? RLS (restless legs syndrome) ??? Schizoaffective disorder, depressive type (HCC) 02/19/2017 ??? Stroke (HCC) 2010 left side affected ??? Suicide attempt (HCC) ??? Urinary incontinence ??? Yeast infection recurrent FAMILY HISTORY Family History Problem Relation Age of Onset ??? Cancer Mother larnyx cancer ??? Heart Disease Sister ??? No Known Problems Son ??? Seizures Daughter SOCIAL HISTORY Social History Social History ??? Marital status: Spouse name: N/A ??? Number of children: 2 ??? Years of education: N/A Occupational History ??? retired Social History Main Topics ??? Smoking status: Never Smoker ??? Smokeless tobacco: Never Used ??? Alcohol use No Comment: wednesday mass ??? Drug use: No ??? Sexual activity: No Other Topics Concern ??? None Social History Narrative Lives at [facility] Has two children and two grandchildren. Is SURGICAL HISTORY Past Surgical History: Procedure Laterality Date ??? ABLATION OF DYSRHYTHMIC FOCUS 12/31/[address] atrial flutter ablation by Dr. Tee ??? ANKLE SURGERY ??? BREAST SURGERY reduction ??? JOINT REPLACEMENT left total knee replacement 1999 ??? LUNG SURGERY partial removal ??? ORTHOPEDIC SURGERY ??? TONSILLECTOMY ??? UPPER GASTROINTESTINAL ENDOSCOPY N/A 04/03/2015 ESOPHAGOGASTRODUODENOSCOPY WITH BIOPSY AND BRUSHING; Surgeon: Be Brown MD; Location: [facility] ENDOSCOPY; Service: Endoscopy CURRENT MEDICATIONS No current facility-administered medications for this encounter. Current Outpatient Prescriptions: ??? acetaminophen 325 mg Oral Tab, Take 650 mg by mouth every 4 hours as needed for Pain., Disp: , Rfl: ??? ufpvl-[id number]-usxzbmacqipkv (ANTI-GAS ORAL), Take by mouth 3 times daily as needed., Disp: , Rfl: ??? amLODIPine (NORVASC) 2.5 mg Oral Tablet, Take 1 Tab by mouth daily., Disp: 30 Tab, Rfl: 11 ??? ARIPiprazole (ABILIFY) 30 mg Oral Tablet, Take 1 Tab by mouth daily., Disp: 30 Tab, Rfl: 0 ??? aspirin (ASPIRIN) 81 mg Oral Tablet, Chewable, Take 1 Tab by mouth daily., Disp: 30 Tab, Rfl: 11 ??? atorvastatin (LIPITOR) 20 mg Oral Tablet, TAKE ONE TABLET BY MOUTH NIGHTLY, Disp: 30 Tab, Rfl: 1 ??? busPIRone (BUSPAR) 5 mg Oral Tablet, Take 5 mg by mouth 2 times daily., Disp: , Rfl: ??? clopidogrel (PLAVIX) 75 mg Oral Tablet, Take 1 Tab by mouth daily., Disp: 90 Each, Rfl: 1 ??? ferrous sulfate 325 mg (65 mg iron) Oral Tablet, Take 1 Tab by mouth 2 times daily (with meals)., Disp: 60 Tab, Rfl: 5 ??? FIBER CHOICE ORAL, Take 325 mg by mouth 2 times daily., Disp: , Rfl: ??? fUROsemide (LASIX) 20 mg Oral Tablet, Take 1 Tab by mouth daily., Disp: 30 Tab, Rfl: 0 ??? hydrocortisone 1 % Top Cream, Apply 1 % topically 2 times daily., Disp: , Rfl: ??? insulin glargine (LANTUS) 100 unit/mL SubQ Solution, 30 units sq nightly (Patient taking differently: 28 Units nightly.), Disp: 10 mL, Rfl: 2 ??? inulin (FIBER CHOICE, INULIN,) 1.5 gram Oral Tablet, Chewable, Take by mouth 2 times daily., Disp: , Rfl: ??? isosorbide mononitrate (IMDUR) 60 mg Oral Tablet Sustained Release 24 hr, TAKE ONE TABLET BY MOUTH ONCE DAILY, Disp: 30 Tab, Rfl: 1 ??? lamoTRIgine (LAMICTAL) 25 mg Oral Tablet, Take 1 Tab by mouth 2 times daily., Disp: 60 Tab, Rfl: 0 ??? loperamide (IMODIUM) 2 mg Oral Capsule, Take 2 mg by mouth 3 times daily as needed., Disp: , Rfl: ??? loratadine (CLARITIN) 10 mg Oral Tablet, Take 10 mg by mouth daily., Disp: , Rfl: ??? Melatonin 3 mg Oral Tablet, Take 5 mg by mouth nightly., Disp: , Rfl: ??? metFORMIN XR (GLUCOPHAGE-XR) 500 mg Oral Tablet Sustained Release 24 hr, Take 500 mg by mouth daily (with breakfast)., Disp: , Rfl: ??? metoprolol (LOPRESSOR) 25 mg Oral Tablet, Take 1 Tab by mouth 2 times daily., Disp: 60 Tab, Rfl: 2 ??? nitroGLYCERIN (NITROSTAT) 0.4 mg SL Tablet, Sublingual, Place 1 Tab under the tongue every 5 minutes as needed for Chest pain., Disp: 20 Tab, Rfl: 2 ??? nystatin (MYCOSTATIN) Top Powder, Apply topically 2 times daily., Disp: , Rfl: ??? omega-3 acid ethyl esters (LOVAZA) 1 gram Oral Capsule, Take 1 g by mouth 2 times daily., Disp:, Rfl: ??? pantoprazole (PROTONIX) 40 mg Oral Tablet, Delayed Release (E.C.), Take 1 Tab by mouth daily., Disp: 30 Tab, Rfl: 2 ??? pantoprazole (PROTONIX) 40 mg Oral Tablet, Delayed Release (E.C.), Take 40 mg by mouth daily., Disp: , Rfl: ??? RANEXA 1,000 mg Oral Tablet Sustained Release 12 hr, TAKE ONE TABLET BY MOUTH EVERY 12 HOURS, Disp: 60 Tab, Rfl: 0 ??? risperiDONE (RISPERDAL) 0.5 mg Oral Tablet, Take 0.5 mg by mouth nightly., Disp: , Rfl: ??? Saccharomyces boulardii (FLORASTOR) 250 mg Oral Capsule, Take 250 mg by mouth 2 times daily., Disp: , Rfl: ??? sertraline (ZOLOFT) 100 mg Oral Tablet, Take 200 mg by mouth daily. Reported on 08/12/2016, Disp:, Rfl: ??? sucralfate (CARAFATE) 100 mg/mL Oral Suspension, Take 1 g by mouth 4 times daily (before meals and nightly)., Disp: , Rfl: ??? traZODone (DESYREL) 50 mg Oral Tablet, Take 1 Tab by mouth nightly., Disp: 30 Tab, Rfl: 2 ALLERGIES Allergies Allergen Reactions ??? Compazine [Prochlorperazine Edisylate] ??? Mayflower ??? Pentazocine Hcl ??? Prochlorperazine Maleate ??? Talwin [Pentazocine Lactate] PHYSICAL EXAM VITAL SIGNS: BP 134/66 (BP Location: Right arm) Pulse 52 Temp 98.1 ??F (36.7 ??C) (Oral) Resp18 SpO2 94% Constitutional:Cooperative alert HENT: Normocephalic, Atraumatic, Bilateral external ears normal, Oropharynx moist, No oral exudates, Nose normal. Eyes: PERRLA, EOMI, Conjunctiva normal, No discharge. Neck: Normal range of motion, No tenderness, Supple, No stridor. Lymphatic: No lymphadenopathy noted. Cardiovascular: Normal heart rate, Normal rhythm, No murmurs, No rubs, No gallops. Thorax & Lungs: Normal breath sounds, No respiratory distress, No wheezing, No chest tenderness. Abdomen: Bowel sounds normal, Soft, No tenderness, No masses, No pulsatile masses. Skin: Warm, Dry, No erythema, No rash. Back: No tenderness, No CVA tenderness. Extremities: Intact distal pulses, No edema, No tenderness, No cyanosis, No clubbing. Musculoskeletal: Good range of motion in all major joints. No tenderness to palpation or major deformities noted. Neurologic: Alert & oriented x 3, Normal motor function, Normal sensory function, No focal deficits noted. Psychiatric: Affect normal, Judgment normal, Mood normal. EKG RADIOLOGY/PROCEDURES Results for orders placed or performed during the hospital encounter of 10/09/17 CBC WITH DIFF Result Value Ref Range WBC 7.0 4.0 - 11.0 x10(3)/mcL RBC 4.32 3.80 - 5.10 x10(6)/mcL Hgb 12.7 12.0 - 15.6 g/dL Hct 37.1 35.7 - 45.9 % MCV 85.9 82.5 - 99.8 fL MCH 29.3 27.0 - 34.3 pg MCHC 34.1 32.1 - 35.3 g/dL RDW 15.2 (H) 11.5 - 15.0 % Platelet 178 144 - 423 x10(3)/mcL MPV 9.3 6.8 - 10.8 fL Neut Percent 67.0 % Lymph Percent 24.5 % Kings Percent 4.9 % Eos Percent 2.9 % Baso Percent 0.7 % Neut # 4.7 1.8 - 7.7 x10(3)/mcL Lymph # 1.7 0.6 - 4.8 x10(3)/mcL Kings # 0.3 0.0 - 1.3 x10(3)/mcL Eos# 0.2 0.0 - 0.5 x10(3)/mcL Baso # 0.0 0.0 - 0.2 x10(3)/mcL COMPREHENSIVE METABOLIC PANEL Result Value Ref Range Sodium 141 136 - 145 mmol/L Potassium 4.2 3.5 - 5.0 mmol/L Chloride 102 98 - 107 mmol/L Total CO2 28 22 - 29 mmol/L Anion Gap 11 7 - 16 mmol/L Calcium 9.7 8.8 - 10.2 mg/dL Glucose Lvl 140 (H) 82 - 100 mg/dL BUN 18 8 - 23 mg/dL Creatinine 1.24 0.51 - 1.30 mg/dL Albumin 3.9 3.2 - 4.6 gm/dL Total Protein 7.1 6.4 - 8.3 gm/dL Bili Total 0.4 0.1 - 1.3 mg/dL ALT 10 <=41 IU/L AST 13 <=40 IU/L Alk Phos 132 (H) 35 - 104 IU/L GFR Afr Am 52 mL/min/1.73 m2 GFR Non Afr Am 45 mL/min/1.73 m2 ALCOHOL MEDICAL Result Value Ref Range Alcohol Medical <10 <=10 mg/dL COURSE & MEDICAL DECISION MAKING Pertinent Labs & Imaging studies reviewed. (See chart for details) Patient evaluated should be seen by mental health social worker. She is placed in a 72 hour hold. I have discussed with the patient their clinical scenario, answered all questions and explained thetreatment plan and return precautions. If a controlled substance was prescribed to this patient it was deemed the patient had acute pain that required the prescribing of a controlled substance. KARLENE was reviewed and the risk and benefits of prescribing a controlled substance was discussed with the patient. FINAL IMPRESSION 1. Suicidal ideation Condition at dischargeStable This chart was completed using voice recognition technology and may contain unintended errors Gregor Clayton MD 10/09/17 1459 documented in this encounter Plan of Treatment [...] Procedure Name Priority Date/Time Associated Diagnosis Comments ACETAMINOPHEN LEVEL STAT 10/09/2017 4 :50 PM EDT SALICYLATE LEVEL STAT 10/09/2017 4:50 PM EDT CBC WITH DIFF STAT 10/09/2017 1:47 PM EDT ALCOHOL MEDICAL STAT 10/09/2017 1:46 PM EDT COMPREHENSIVE METABOLIC PANEL STAT 10/09/2017 1:46 PM EDT documented in this encounter Results * SALICYLATE LEVEL (10/09/2017 4:50 PM EDT) Salicylate <0.3 <=0.3 mg/dL 10/09/2017 5:18 PM EDT [facility] Blood VENOUS BLOOD / Unknown Venipuncture / Unknown 10/09/2017 4:50 PM EDT 10/09/2017 4:53 PM EDT us Gregor Clayton MD CHEMISTRY ORDERABLES Final R esult [facility] [address] [facility] , [address] [place] [id number] * ACETAMINOPHEN LEVEL (10/09/2017 4:50 PM EDT) Acetaminophen Lvl <15.0 mcg/mL 018 5:17 PM EDT [id number] Blood VENOUS BLOOD / Unknown Venipuncture / Unknown 10/09/2017 4:50 PM EDT 10/09/2017 4:53 PM EDT Narrative [facility] - 10/09/2017 5:17 PM EDT Therapeutic: ? 10-30 mcg/ml Supratherapeutic: ?> 35 mcg/ml Toxic: ? > 150 mcg/ml (4h post ingestion) ? > ??75 mcg/ml (8h post ingestion) ? > ??40 mcg/ml (12h post ingestion) ?? us Gregor Clayton MD CHEMISTRY ORDERABLES Final R esult [facility] [address] [facility] , [address] [place] [id number] * (ABNORMAL) CBC WITH DIFF (10/09/2017 1:47 PM EDT) WBC 7.0 4.0 - 11.0 x10(3)/mcL 10/09/2017 2:01 PM EDT [facility] RBC 4.32 3.80 - 5.10 x10(6)/mcL 10/09/2017 2:01 PM EDT [facility] Hgb 12.7 12.0 - 15.6 g/dL 10/09/2017 2:01 PM EDT [facility] Hct 37.1 35.7 - 45.9 % 10/09/2017 2:01 PM EDT [facility] MCV 85.9 82.5 - 99.8 fL 10/09/2017 2:01 PM EDT [facility] MCH 29.3 27.0 - 34.3 pg 10/09/2017 2:01 PM EDT [facility] MCHC 34.1 32.1 - 35.3 g/dL 10/09/2017 2:01 PM EDT [facility] RDW 15.2(H) 11.5 - 15.0 % 10/09/2017 2:01 PM EDT [facility] Platelet 178 144 - 423 x10(3)/mcL 10/09/2017 2:01 PM EDT [facility] MPV 9.3 6.8 - 10.8 fL 10/09/2017 2:01 PM EDT [facility] Neut Percent 67.0 % 10/09/2017 2:01 PM EDT [facility] Lymph Percent 24.5 % 10/09/2017 2:01 PM EDT [facility] Kings Percent 4.9 % 10/09/2017 2:01 PM EDT [facility] Eos Percent 2.9 % 10/09/2017 2:01 PM EDT [facility] Baso Percent 0.7 % 10/09/2017 2:01 PM EDT [facility] Neut # 4.7 1.8 - 7.7 x10(3)/[facility] 10/09/2017 2:01 PM EDT [facility] Lymph # 1.7 0.6 - 4.8 x10(3)/[facility] 10/09/2017 2:01 PM EDT [facility] Kings # 0.3 0.0 - 1.3 x10(3)/[facility] 10/09/2017 2:01 PM EDT [facility] Eos# 0.2 0.0 - 0.5 x10(3)/[facility] 10/09/2017 2:01 PM EDT [facility] Baso # 0.0 0.0 - 0.2 x10(3)/[facility] 10/09/2017 2:01 PM EDT [facility] Blood VENOUS BLOOD / Unknown Venipuncture / Unknown 10/09/2017 1:47 PM EDT 10/09/2017 1:47 PM EDT us Gregor Clayton MD HEMATOLOGY ORDERABLES Final Result [facility] [address] [place] [address] * ALCOHOL MEDICAL (10/09/2017 1:46 PM EDT) [facility] Alcohol Medical <10 <=10 mg/dL 10/09/2017 1:59 PM EDT [facility] Blood VENOUS BLOOD / Unknown Venipuncture / Unknown 10/09/2017 1:46 PM EDT 10/09/2017 1:46 PM EDT us Gregor Clayton MD CHEMISTRY ORDERABLES Final R esult [facility] [address] [place] [id number] * (ABNORMAL) COMPREHENSIVE METABOLIC PANEL (10/09/2017 1:46 PM EDT) Sodium 141 136 - 145 mmol/L 10/09/2017 1:59 PM EDT [facility] Potassium 4.2 3.5 - 5.0 mmol/L 10/09/2017 1:59 PM EDT [facility] Chloride 102 98 - 107 mmol/L 10/09/2017 1:59 PM EDT [facility] Total CO2 28 22 - 29 mmol/L 10/09/2017 1:59 PM EDT [facility] Anion Gap 11 7 - 16 mmol/L 10/09/2017 1:59 PM EDT [facility] Calcium 9.7 8.8 - 10.2 mg/dL 10/09/2017 1:59 PM EDT [facility] Glucose Lvl 140(H) 82 - 100 mg/dL 10/09/2017 1:59 PM EDT [facility] BUN 18 8 - 23 mg/dL 10/09/2017 1:59 PM EDT [facility] Creatinine 1.24 0.51 - 1.30 mg/dL 10/09/2017 1:59 PM EDT [facility] Albumin 3.9 3.2 - 4.6 gm/dL 10/09/2017 1:59 PM EDT [facility] Total Protein 7.1 6.4 - 8.3 gm/dL 10/09/2017 1:59 PM EDT [facility] Bili Total 0.4 0.1 - 1.3 mg/dL 10/09/2017 1:59 PM EDT [facility] ALT 10 <=41 IU/L 10/09/2017 1:59 PM EDT [facility] AST 13 <=40 IU/L 10/09/2017 1:59 PM EDT [facility] Alk Phos 132(H) 35 - 104 IU/L 10/09/2017 1:59 PM EDT [facility] GFR Afr Am 52 mL/min/1.7 3 m2 10/09/2017 1:59 PM EDT [facility] GFR Non Afr Am 45 mL/min/1.7 3 m2 10/09/2017 1:59 PM EDT [facility] Comment: GFR Afr Am and GFR Non Afr Am calculated using CKD-EPI equation. ?? GFR Category ?GFR(mL/min/1.73 m??) ? Kidney Function G1 ?>=90 ?Normal or high G2 ?60-89 ? Mildly decreased G3a ? 45-59 ? Mildly to moderately decreased G3b ? 30-44 ? Moderately to severely decreased G4 ?15-29 ? Severely decreased G5 ?<15 ? Kidney Failure Blood VENOUS BLOOD / Unknown Venipuncture / Unknown 10/09/2017 1:46 PM EDT 10/09/2017 1:46 PM EDT us Gregor Clayton MD CHEMISTRY ORDERABLES Final R esult [facility] [address] [place], [place] [id number] documented in this encounter Visit Diagnoses Diagnosis Suicidal ideation- Primary documented in this encounter Orders Nourishments Count Last Ordered Date First Orde red Date DIET MESSAGE 1 10/09/2017 Behavioral Health Services Count Last Ordered D ate First Ordered Date ED CONSULT FOR MENTAL HEALTH ASSESSMENT 1 0 10/09/2017 documented in this encounter Additional Health Concerns Assessment Noted Time A fall risk assessment has been complete d for the patient 04/21/2017 10:52 AM EST documented as of this encounter Care Teams Drain Layer Relationship Specialty Start Date End Date Sharee Segovia APRN [address] [place] [phone] PCP - General Nurse Practitioner-Family 09/21/16 documented as of this encounter
--- OUTSIDE RECORDS SUMMARY | 2024-02-16 14:52 | XMS_ITS | Encounter Summary ---
Author Organization [place] [address] Care Team Providers Care Glass Forming Engineer Name Role Phone Sharee Segovia APRN Primary Care Provider [phone] Reason for Visit * Reason Comments Diabetes Foot Pain Bilateral, sore on l eft heel. Nail Care * Consultation (Routine) - Closed Specialty Diagnoses / Procedures Referred By Arsh patel Referred To Contact Slurry Control Operator Helper-Surgery, Foot & Ankle / Podiatry Diagnoses Dermatophytosis of nail diabetic nc Procedures OFFICE VISIT Sharee Segovia APRN [address] [place] [address] Phone: tel: fax: Mayo Muse, MUNAM [address] [place] [address] Phone: tel: fax: Referral ID Status Reason Start Date Expiration Date Visits Re quested Visits Authorized [id number] Closed 10/28/2017 10/28/2018 99 99 Encounter Details Date Type Department Care Team (Late st Contact Info) Description 10/28/2017 3:00 PM EDT Office Visit [facility] [place] [address] [place] [address] Mayo Muse, DPM [address] [place] [address] 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 (HCC) (Primary Dx); Acquired valgus deformity of left ankle; History of CVA (cerebrovascular accident); Heel ulceration, left, limited to breakdown of skin (HCC); Onychomycosis; Pain in toes of both feet Social History Tobacco Use Types Packs/Day Years [...] - Inhaled Oxygen Concentration - - Weight 106.6 kg (235 lb) 10/28/2017 3:17 PM EDT Height 174 cm (5' 8.5 ) 10/28/2017 3:17 PM EDT Body Mass Index 35.21 10/28/2017 3:17 PM EDT documented in this encounter Functional [...] Birdie Wilkinson RMA documented in this encounter Progress Notes * Mayo Muse DPM - 10/28/2017 3:00 PM EDT Images from the original note were not included. Subjective: Patient ID: Faby Palm is a 67 y.o. female. Chief Complaint: Diabetes; Foot Pain (Bilateral, sore on left heel.); and Nail Care HPI 67 y.o. female complains of painful lesion to the back of her left heel states is been present for several months. Has had ulcers in the past. Also complains of toenails 1 through 5 both feet. Has history of CVA Past Medical History: Diagnosis Date ??? Atrial flutter ([facility]) EPS, AFL Ablation on 12/31/[address] Tee ??? CHF (congestive heart failure) ([facility]) ??? COPD (chronic obstructive pulmonary disease) ([facility]) ??? DDD (degenerative disc disease) ??? Diabetes mellitus ([facility]) ??? Hypertension ??? Intellectual disability 05/03/2017 ??? FL (myocardial infarction) ([facility]) ??? RLS (restless legs syndrome) ??? Schizoaffective disorder, depressive type ([facility]) 02/19/2017 ??? Stroke ([facility]) 2010 left side affected ??? Suicide attempt ([facility]) ??? Urinary incontinence ??? Yeast infection recurrent Outpatient Prescriptions Marked as Taking for the 10/28/17 encounter (Office Visit) with Mayo Muse DPM Medication Sig Dispense Refill ??? acetaminophen 325 mg Oral Tab Take 650 mg by mouth every 4 hours as needed for Pain. Pt takes 1to 2 tabs as needed ??? pifne-B-jufxcivvjnrvm (ANTI-GAS ORAL) Take by mouth 3 times daily as needed. ??? amLODIPine (NORVASC) 2.5 mg Oral Tablet [...] times daily (with meals).60 Tab 5 ??? glipiZIDE (GLUCOTROL) 10 mg Oral Tablet Take 10 mg by mouth 2 times daily. ??? insulin glargine (LANTUS) 100 unit/mL SubQ Solution 30 units sq nightly (Patient taking differently: 28 Units nightly.) 10 mL 2 ??? isosorbide mononitrate (IMDUR) 60 mg Oral Tablet Sustained Release 24 hr TAKE ONE TABLET BY MOUTH ONCE DAILY 30 Tab 1 ??? lamoTRIgine (LAMICTAL) 100 mg Oral Tablet Take 50 mg by mouth 2 times daily. Takes 1/2 tablet bid of 100 mg ??? lamoTRIgine (LAMICTAL) 25 mg Oral Tablet [...] ??? nystatin (MYCOSTATIN) Top Powder Apply topically 2 times daily. ??? omega-3 acid ethyl esters (LOVAZA) 1 gram Oral Capsule Take 1 g by mouth 2 times daily. ??? pantoprazole (PROTONIX) 40 mg Oral Tablet, Delayed Release (E.C.) Take 1 Tab by mouth daily. 30Tab 2 ??? pantoprazole (PROTONIX) 40 mg Oral Tablet, Delayed Release (E.C.) Take 40 mg by mouth. 2 tabs at bedtime ??? RANEXA 1,000 mg Oral Tablet Sustained [...] by mouth nightly. 30 Tab 2 ??? UNABLE TO FIND as needed. VALZACYCLOVIR HCL 1 GM ??? UNABLE TO FIND as needed. HENTOLIN HFA 90 MCG ??? UNABLE TO FIND 3 times daily as needed. HM ANTACID -ANTIGAS FILEMON 20 ML Review of Systems Constitutional: Positive for fatigue. Musculoskeletal: Positive for arthralgias, back pain, gait problem and joint swelling. Neurological: Positive for weakness (uses walker.). Hematological: Bruises/bleeds easily. All other systems reviewed and are negative. Objective: Vitals: 10/28/17 1517 Weight: 235 lb (106.6 kg) Height: 5' 8.5 (1.74 m) Body mass index is 35.21 kg/m??. Physical Exam Pulses palpable. Sensation diminished. Valgus deformity of the left foot. Nail plates of 1-5 bilateral toes are long thickened brittle and dystrophic. No gross paronychia isnoted the adjacent nail folds. No gross evidence of pyogenic granuloma is noted. +Pain Left foot ulceration measuring 0.5 0.5 x 0 point x 1 cm which includes skin full thickness.. It is 85% granular, 50% fibrotic. It does not probe to bone. There is no sebastián pus. There is no necrosis. No malodor. Surrounding tissue is hyperkeratotic Shoes appear to be abutting the heel ulceration Patient verbally consented permission allowing todays photograph - using the [employer] aurelio. Assessment and Plan: Faby was seen today for diabetes, foot pain and nail care. Diagnoses and all orders for this visit: 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 (HCC) - ME DEBRIDEMENT OF NAILS, 6 OR MORE - ME DEBRIDEMENT OPEN WOUND 20 SQ CM< Acquired valgus deformity of left ankle History of CVA (cerebrovascular accident) Heel ulceration, left, limited to breakdown of skin (HCC) - ME DEBRIDEMENT OPEN WOUND 20 SQ CM< Onychomycosis - ME DEBRIDEMENT OF NAILS, 6 OR MORE Pain in toes of both feet - ME DEBRIDEMENT OF NAILS, 6 OR MORE Plan: 1. Sharp excisional debridement of left foot, to a depth of subcutaneous tissue utilizing a pickup and a # 15 blade. All nonviable soft tissue removed to a healthy bleeding base. Hemostasis was achieved with 4x4 gauze. Bulky dressing applied. 2. Rx extra depth shoes. 3. Rx Plastazote insoles 4. Debrided mycotic appearing hypertrophied nails of both dystrophic thickening and length to relief of all affected toes. No new orders regarding nail treatment. 5. Follow-up in 8 weeks Mayo Muse DPM 10/28/17 documented in this encounter Plan of Treatment Scheduled Orders Name Type Priority Associated Diagnoses Orde r Schedule ME DEBRIDEMENT OF NAILS, 6 OR MORE ME Charge Routine 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 (HCC) Onychomycosis Pain in toes of both feet Ordered: 10/28/2017 ME DEBRIDEMENT OPEN WOUND 20 SQ CM< ME Charge Routine 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 (HCC) Heel ulceration, left, limited to breakdown of skin (HCC) Ordered: 10/28/2017 documented as of this encounter Goals Goal Patient Goal Type Associated Problems Recent Progress Patient-Stated? Author Blood Pressure < 140/90 Blood Pressure 124/52(2018 4:00 PM EDT) No Silva Mathew RMA BMI (Calculated) < 30 General 35.6(10/06/19 19 4:56 PM EDT) No Silva Mathew RMA Maintain a healthy diet, exercise regularly and maintain an ideal body weight General No [place], Silva S, RMA HEMOGLOBIN A1C < 7.0 Result Component 6.6( 9 9:49 AM EST) No Silva Mathew S, RMA documented as of this encounter Visit Diagnoses Diagnosis 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- Primary Acquired valgus deformity of left ankle History of CVA (cerebrovascular accident) Transient ischemic attack (TIA), and cerebral infarction without residual deficits Heel ulceration, left, limited to breakdown of skin (HCC) Onychomycosis Dermatophytosis of nail Pain in toes of both feet documented in this encounter Additional Health Concerns Assessment Noted Time A fall risk assessment has been complete d for the patient 04/21/2017 10:52 AM EST documented as of this encounter Care Teams Glass Forming Engineer Relationship Specialty Start Date End Date Sharee Segovia APRN [address] [place] [id number] PCP - General Nurse Practitioner-Family 09/21/16 documented as of this encounter
--- OUTSIDE RECORDS SUMMARY | 2024-02-16 14:52 | XMS_ITS | Encounter Summary ---
Author Organization [place] [address] Care Team Providers Care Manager Of Tax Name Role Phone Sharee Segovia APRN Primary Care Provider [phone] Encounter Details Date Type Department Care Team (Late st Contact Info) Description 03/28/2018 Orders Only [facility] [address] [place] [address] Sharee Segovia APRN [address] [email or web address] [address] 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) (Primary Dx) Social History Tobacco Use Types [...] of Assessment Author No 08/09/2017 9:08 AM EDT Birdie Kyle RMA * Is the person blind or does he/she have serious difficulty seeing even when wearing glasses? Answer Date of Assessment Author No 08/09/2017 9:08 AM EDT Anabella Kaanbelén Marshall RMRonaldo * Does this person have serious difficulty walking or climbing stairs? Answer Date of Assessment Author Yes 08/09/2017 9:08 AM EDT Anabella , Birdie L, RMRonaldo * Does this person have difficulty dressing or bathing? Answer Date of Assessment Author No 08/09/2017 9:08 AM EDT Anabella Kanabelén Marshall RMA * Because of a physical, mental or emotional condition, does this person have difficulty doing errands alone such as visiting a doctor's office or shopping? Answer Date of Assessment Author Yes 08/09/2017 9:08 AM EDT Anabella Kanabelén Marshall RMRonaldo documented as of this encounter Mental Status * Because of a physical, mental or emotional condition, does this person have serious difficulty concentrating, remembering or making decisions? Answer Entry Date Author Yes 08/09/2017 9:08 AM EDT Birdie Kyle RMRonaldo documented in this encounter Plan of Treatment [...] as of this encounter Visit Diagnoses Diagnosis 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)- Primary Type II or unspecified type diabetes mellitus with neurological manifestations, not stated as uncontrolled documented in this encounter Additional Health Concerns Assessment Noted Time A fall risk assessment has been complete d for the patient 04/21/2017 10:52 AM EST documented as of this encounter Care Teams Manager Of Tax Relationship Specialty Start Date End Date Sharee Segovia APRN [address] [place] [address] PCP - General Nurse Practitioner-Family 09/21/16 documented as of this encounter
--- OUTSIDE RECORDS SUMMARY | 2024-02-16 14:52 | XMS_ITS | Encounter Summary ---
Author Organization [place] [address] Care Team Providers Care Auto Damage Estimator Name Role Phone Sharee Segovia ELECTROTYPE SERVICER Primary Care Provider [phone] Reason for Visit * Reason Onset Date Comments Visit Follow Up 12/16/2017 Encounter Details Date Type Department Care Team (Late Contact Info) Description 12/16/2017 Telephone [facility] [address] [place] [address] Sharee Segovia APRN [address] [place], [place] [id number] Visit Follow Up Social History Tobacco Use Types Packs/Day Years [...] Author No 08/09/2017 9:08 AM EDT Anabella Birdie RMA * Does this person have serious difficulty walking or climbing stairs? Answer Date of Assessment Author Yes 08/09/2017 9:08 AM EDT Anabella Birdie RMA * Does this person have difficulty dressing or bathing? Answer Date of Assessment Author No 08/09/2017 9:08 AM EDT Anabella Kanae Joanna RMRonaldo * Because of a physical, mental or emotional condition, does this person have difficulty doing errands alone such as visiting a doctor's office or shopping? Answer Date of Assessment Author Yes 08/09/2017 9:08 AM EDT Birdie Kyle RMRonaldo documented as of this encounter Mental Status * Because of a physical, mental or emotional condition, does this person have serious difficulty concentrating, remembering or making decisions? Answer Entry Date Author Yes 08/09/2017 9:08 AM EDT Anabella Kanabelén MarshallTHEO documented in this encounter Miscellaneous Notes * Telephone Encounter - Rosa Maria Rene - 12/16/2017 3:17 PM EDT Tried to reach pt's nurses to schedule mammogram. No answer no vm documented in this encounter Plan of Treatment [...] documented as of this encounter Care Teams Auto Damage Estimator Relationship Specialty Start Date End Date Sharee Segovia APRN [address] [place] [phone] PCP - General Nurse Practitioner-Family 09/21/16 documented as of this encounter
--- OUTSIDE RECORDS SUMMARY | 2024-02-16 14:52 | XMS_ITS | Encounter Summary ---
Author Organization [place] [address] Care Team Providers Care Community Services Coordinator Name Role Phone Sharee Segovia APRN Primary Care Provider [phone] Reason for Visit * Reason Comments Rash brought in by EMS, p t was at [facility] c/o sever rash to groin. (+) Dysuria Psychiatric Evaluation pt took EMS, she is suicidal and wants to lay on train tracks. When arrived pt said she only said that because she was mad. Denies SI/HI Encounter Details Date Type Department Care Team (Late st Contact Info) Description 01/18/2018 5:36 PM EST - 01/18/2018 7:20 PM EST Emergency . [facility] [address] [place] [address] Jemima Swartz MD [address] [place] [address] Candidal dermatitis (Primary Dx); Depression, unspecified depression type Discharge Disposition: Home or Self Care Social [...] Sign Reading Time Taken Comments Blood Pressure 158/61 01/18/2018 5:41 PM EST Pulse 70 01/18/2018 5:41 PM EST Temperature 37.1 ??C (98.7 ??F) 01/18/2018 5:41 PM ES T Respiratory Rate 16 01/18/2018 5:41 PM EST Oxygen Saturation 97% 01/18/2018 5:41 PM EST Inhaled Oxygen Concentration - - Weight - [...] Birdie Wilkinson RMA documented in this encounter Discharge Instructions * Discharge Instructions* Jemima Swartz MD - 01/18/2018 6:25 PM EST Try to keep the skin in the area of the rash as dry as possible. Nystatin as prescribed. Follow-up with your doctor next week for recheck. Return to the ER for fever, expanding skin redness despite nystatin use, any suicidal thoughts or other emergent concerns. * Attachments The following attachments cannot be sent through Care Everywhere. * Skin Yeast Infection (Cymraes) documented in this encounter Medications at Time [...] daily (with meals). 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 And Takes 100 mg at night [...] NORMA (non-ST elevated myocardial infarction) ([facility]),ASHD (arteriosclerotic heart disease),Essential hypertension,Chronic diastolic CHF (congestive heart failure) ([facility]),Hyperlipidemia , unspecified hyperlipidemia type Take 20 [...] SL Tablet, SublingualIndication s:Angina pectoris ([facility]) Place 1 Tab under the tongue every 5 minutes as needed for Chest pain. 20 Tab 2 11/19/2016 9 nystatin (MYCOSTATIN) Top Powder Apply topically 3 times daily for 14 days. 60 g 1 01/18/2018 8 omega-3 acid ethyl esters (LOVAZA) 1 gram Oral Capsule Take 1 g by mouth 2 times daily. 9 risperiDONE (RISPERDAL) 0.5 mg Oral Tablet Take 0.5 mg by mouth nightly. 9 documented as of this encounter Ordered Prescriptions Prescription Sig Dispense Quantity Refills Last Filled Start Date End Date nystatin (MYCOSTATIN) Top Powder Apply topically 3 times daily for 14 days. 60 g 1 01/18/2018 8 documented in this encounter Discharge Disposition Disposition Code Departure Means Destination Home or Self Half-Way documented in this encounter ED Notes * Janina Huber RN - 01/18/2018 7:18 PM EST Called cab for patient. Pt ambulatory to wheel chair and assisted out to cab. Pt leaving a/o. * Marcos Arriaza RN - 01/18/2018 6:33 PM EST Attempted x 6 to call [facility] where patient lives to set up transportation. No answer. training coordinator notified. * Marcos Arriaza RN - 01/18/2018 6:00 PM EST Present with MD to Dr. Hill to evaluate patients groin. * Jemima Swartz MD - 01/18/2018 5:36 PM EST Chief Complaint Patient presents with ??? Rash brought in by EMS, pt was at [facility] c/o sever rash to groin. (+) Dysuria ??? Psychiatric Evaluation pt took EMS, she is suicidal and wants to lay on train tracks. When arrived pt said she only said that because she was mad. Denies SI/HI History provided by: Patient 67 y.o. female with history of COPD, DDD, CHF, atrial flutter, CVA, mood disorder, recurrent major depressive disorder, schizoaffective disorder, and intellectual disability presents to the ED via EMS with 2 separate complaints. Patient reports rash on groin onset a few months ago. She denies seeking treatment or taking medications for the rash prior to today because she thought the rash would resolve on its own. Reports pain, redness, and bleeding in the groin area due to the rash. Denies fever, vaginal discharge, or any urinary symptoms. She is not sexually active. Patient was also involved in a verbal altercation with her psychiatrist today. States I just got madder and madder and threatened to kill myself. I was just mad at the world. She states she only said this because she was angry and is not truly suicidal. Denies any recent thoughts of suicide. No homicidal ideation. Denies any recent changes to her medications. Patient History Allergies Allergen Reactions ??? Compazine [Prochlorperazine Edisylate] ??? Star ??? Pentazocine Hcl ??? Prochlorperazine Maleate ??? Talwin [Pentazocine Lactate] Home Medications: Prior to Admission medications Medication Sig Start Date End Date Taking? Authorizing Provider acetaminophen 325 mg Oral Tab Take 650 mg by mouth every 4 hours as needed for Pain. Pt takes 1 to 2 tabs as needed Provider, Historical hhbmn-W-zwmrvsykbgwif (ANTI-GAS ORAL) Take by mouth 3 times daily as needed. Provider, Historical amLODIPine (NORVASC) 2.5 mg Oral [...] daily (with meals). 04/04/15 Campbell Huston MD glipiZIDE (GLUCOTROL) 10 mg Oral Tablet Take 10 mg by mouth 2 times daily. Provider, Historical insulin glargine (LANTUS) 100 unit/mL SubQ Solution 30 units sq nightly Patient taking differently: 28 Units nightly. 08/09/17 Sharee Segovia ARNP isosorbide mononitrate (IMDUR) 60 mg Oral Tablet Sustained Release 24 hr TAKE ONE TABLET BY MOUTH ONCE DAILY 03/24/17 Joanna Pierce MD lamoTRIgine (LAMICTAL) 100 mg Oral Tablet Take 50 mg by mouth 2 times daily. Takes 1/2 tablet bid of 100 mg Provider, Historical lamoTRIgine (LAMICTAL) 25 mg Oral Tablet Take 1 Tab by mouth 2 times daily. 05/12/17 Eric Gavin MD lisinopril (PRINIVIL;ZESTRIL) 20 mg Oral Tablet Take [...] for Chest pain. 11/19/16 Sharee Segovia ARNP nystatin (MYCOSTATIN) Top Powder Apply topically 3 times daily for 14 days. 01/18/18 02/01/18 Jemima Swartz MD omega-3 acid ethyl esters (LOVAZA) 1 gram Oral Capsule Take 1 g by mouth 2 times daily. Provider, Historical pantoprazole (PROTONIX) 40 mg Oral Tablet, Delayed Release (E.C.) Take 1 Tab by mouth daily. 09/21/17 Ernie Pizano MD pantoprazole (PROTONIX) 40 mg Oral Tablet, Delayed Release (E.C.) Take 40 mg by mouth. 2 tabs at bedtime Provider, Historical RANEXA 1,000 mg Oral Tablet [...] Tablet Take 1 Tab by mouth nightly. 08/09/17 Sharee Segovia ARNP UNABLE TO FIND as needed. VALZACYCLOVIR HCL 1 GM Provider, Historical UNABLE TO FIND as needed. HENTOLIN HFA 90 MCG Provider, Historical UNABLE TO FIND 3 times daily as needed. HM ANTACID -ANTIGAS FILEMON 20 ML Provider, Historical Past Medical History: Past Medical History: Diagnosis Date ??? Atrial flutter (HCC) EPS, AFL Ablation on 12/31/[address] Tee ??? CHF (congestive heart failure) (HCC) ??? COPD (chronic obstructive pulmonary disease) (HCC) ??? DDD (degenerative disc disease) ??? Diabetes mellitus (HCC) ??? Hypertension ??? Intellectual disability 05/03/2017 ??? [place] (myocardial infarction) (HCC) ??? RLS (restless legs syndrome) ??? Schizoaffective disorder, depressive type ([facility]) 02/19/2017 ??? Stroke ([facility]) 2010 left side affected ??? Suicide [...] and fever. HENT: Negative. Eyes: Negative. Respiratory: Negative for cough and shortness of breath. Cardiovascular: Negative for chest pain. Gastrointestinal: Negative for abdominal pain, nausea and vomiting. Genitourinary: Negative for dysuria, frequency and vaginal discharge. Musculoskeletal: Negative. Skin: Positive for rash (groin area). Neurological: Negative. Psychiatric/Behavioral: Negative. Negative for hallucinations and suicidal ideas. All other systems reviewed and are negative. Physical Exam Blood pressure 158/61, pulse 70, temperature 98.7 ??F (37.1 ??C), temperature source Oral, resp. rate 16, SpO2 97 %, not currently . Physical Exam Constitutional: She is oriented to person, place, and time. She appears well- developed and well-nourished. No distress. HENT: Head: Normocephalic and atraumatic. Eyes: Conjunctivae are normal. Neck: Neck supple. Cardiovascular: Normal rate and regular rhythm. Exam reveals no gallop and no friction rub. No murmur heard. Pulmonary/Chest: Effort normal and breath sounds normal. Abdominal: She exhibits no distension. Genitourinary: Genitourinary Comments: Erythematous confluent rash within the left inguinal crease extending to the left labia majora. The external genitalia is otherwise normal. There are satellite lesions consistent with blaze. There is minimal rash in the right inguinal crease. Musculoskeletal: She exhibits no edema. Neurological: She is alert and oriented to person, place, and time. Skin: Skin is warm and dry. No rash noted. Psychiatric: She has a normal mood and affect. Her speech is normal. She is not actively hallucinating. She expresses no homicidal and no suicidal ideation. Nursing note and vitals reviewed. Procedures Radiology/EKG/Labs: No results found for this visit on 01/18/18. ED Course: Appropriate laboratory and radiology studies reviewed Patient presents with rash and reportedly made a suicidal statement prior to arrival. Patient adamantly denies suicidal ideation. She contracts for safety. Her rash is consistent with blaze dermatitis. She is prescribed nystatin. We discussed the importance of keeping the area as clean and dry aspossible. She will follow up with PCP for recheck. She will continue management of her chronic psychiatric issues with her psychiatrist. She will return to the ED for new or worsening symptoms. She is in agreement with treatment plan and is comfortable with discharge from the ED. Given return precautions.discharge. New Prescriptions NYSTATIN (MYCOSTATIN) TOP POWDER Apply topically 3 times daily for 14 days. ED Clinical Impression: 1. Candidal dermatitis 2. Depression, unspecified depression type Critical Care time Condition at Discharge/Transfer from Department: Stable This chart was completed using voice recognition technology and may contain unintended errors Jemima Olivares MD, personally performed the services described in this documentation, as scribedbyCharan, in my presence and it is accurate and complete. Charan Olivares Scribe, am scribing for and in the presence of Jemima Cleaning MD. Charan Garrett Scribe 01/18/18 1840 Jemima Swartz MD 02/04/18 1756 documented in this encounter Plan of Treatment [...] as of this encounter Visit Diagnoses Diagnosis Candidal dermatitis- Primary Candidiasis of skin and nails Depression, unspecified depression type documented in this encounter Discontinued Medications Medication Sig Discontinue Reason Start Date End Da te nystatin (MYCOSTATIN) Top Powder Apply topically 2 times daily. Cancelled by 01/18/2018 documented as of this encounter Additional Health Concerns Assessment Noted Time A fall risk assessment has been complete d for the patient 04/21/2017 10:52 AM EST documented as of this encounter Care Teams Community Services Coordinator Relationship Specialty Start Date End Date Sahree Segovia APRN [address] [place], [place] [address] PCP - General Nurse Practitioner-Family 09/21/16 documented as of this encounter
--- OUTSIDE RECORDS SUMMARY | 2024-02-16 14:52 | XMS_ITS | Encounter Summary ---
Author Organization [place] [place] [address] Care Team Providers Care Inside Sales Manager Name Role Phone Sharee Segovia APRN Primary Care Provider [phone] Encounter Details Date Type Department Care Team (Late st Contact Info) Description 03/28/2018 Orders Only SEP [facility] [address] [place] [address] Sharee Segovia APRN [address] [place] [address] Well controlled type 2 diabetes mellitus with [...] 08/09/2017 9:08 AM EDT Anabella Kanabelén Marshall THEO * Does this person have serious difficulty walking or climbing stairs? Answer Date of Assessment Author Yes 08/09/2017 9:08 AM EDChelsi Holmdt Kanabelén MarshallTHEO * Does this person have difficulty dressing or bathing? Answer Date of Assessment Author No 08/09/2017 9:08 AM EDT Anabella Kanabelén MarshallTHEO * Because of a physical, mental or emotional condition, does this person have difficulty doing errands alone such as visiting a doctor's office or shopping? Answer Date of Assessment Author Yes 08/09/2017 9:08 AM EDT Kana Kylebelén MarshallTHEO documented as of this encounter Mental Status * Because of a physical, mental or emotional condition, does this person have serious difficulty concentrating, remembering or making decisions? Answer Entry Date Author Yes 08/09/2017 9:08 AM MARIPOSA AnabellaBirdie charlton THEO documented in this encounter Progress Notes * Sharee Segovia ARNP - 03/28/2018 1:25 PM EST Please call and schedule Medicare physical. Her last physical was 09/2016 * Birdie Amor RMA - 03/28/2018 1:25 PM EST Pt is a current resident at the [facility] in [place]. No answer at this time, not able to leave message documented in this encounter Plan of Treatment [...] documented as of this encounter Care Teams Inside Sales Manager Relationship Specialty Start Date End Date Sharee Segovia APRN [address] [place] [phone] PCP - General Nurse Practitioner-Family 09/21/16 documented as of this encounter
--- OUTSIDE RECORDS SUMMARY | 2024-02-16 14:52 | XMS_ITS | Encounter Summary ---
Author Organization [place] [address] Care Team Providers Care State [employer] Agent Team Member Name Role Phone Sharee Segovia APRN Primary Care Provider [phone] Reason for Visit * Reason Onset Date Comments Care Management - Chart Review 09/22/2017 Encounter Details Date Type Department Care Team (Late st Contact Info) Description 09/22/2017 Patient Outreach [facility] [address] [place] [address] Marisabel Lr RN Care Management - Chart [...] Yes 08/09/2017 9:08 AM EDT Birdie Kyle RMA * Does this person have difficulty dressing or bathing? Answer Date of Assessment Author No 08/09/2017 9:08 AM EDT Birdie Kyle RMA * Because of a physical, mental or emotional condition, does this person have difficulty doing errands alone such as visiting a doctor's office or shopping? Answer Date of Assessment Author Yes 08/09/2017 9:08 AM EDT Birdie Kyle RMA documented as of this encounter Mental Status * Because of a physical, mental or emotional condition, does this person have serious difficulty concentrating, remembering or making decisions? Answer Entry Date Author Yes 08/09/2017 9:08 AM EDT Birdie Kyle RMA documented in this encounter Progress Notes * Marisabel Lr RN - 09/22/2017 7:41 AM EDT Chart reviewed after recent hospital discharge; patient not appropriate for H[facility]/CTT to follow. Patient appropriate for Level 1. Dx: CP r/t Gerd documented in this encounter Plan of Treatment [...] documented as of this encounter Care Teams State [employer] Agent Team Member Relationship Specialty Start Date End Date Sharee Segovia APRN [address] [place], [place] [address] PCP - General Nurse Practitioner-Family 09/21/16 documented as of this encounter
--- OUTSIDE RECORDS SUMMARY | 2024-02-16 14:52 | XMS_ITS | Encounter Summary ---
Author Organization [place] [address] Care Team Providers Care Powder Monkey Name Role Phone Sharee Segovia APRN Primary Care Provider [phone] Reason for Visit * Reason Comments Diarrhea prev ts IP only, pos itive Hemclt * Consultation (Routine) - Closed Specialty Diagnoses / Procedures Referred By Arsh t Referred To Contact Gastroenterology Diagnoses Positive occult stool blood test Sharee Segovia APRN [address] [place] [address] Phone: tel: fax: Danial Erickson DO Phone: tel: fax: Referral ID Status Reason Start Date Expiration Date V isits Requested Visits Authorized [id number] Closed Specialty Services Required 08/12/2017 08/12/2018 1 99 Encounter Details Date Type Department Care Team (Late st Contact Info) Description 10/14/2017 2:00 PM EDT Office Visit SEP Gastro [facility] [address] [facility] [address] [place] [id number] Ruth Conteh MD Positive occult stool blood test (Primary Dx); Diarrhea, unspecified type Social History Tobacco Use Types Packs/Day Years [...] Sign Reading Time Taken Comments Blood Pressure 122/78 10/14/2017 2:44 PM EDT Pulse - - Temperature - - Respiratory Rate - - Oxygen Saturation - - Inhaled Oxygen Concentration - - Weight 106.1 kg (234 lb) 10/14/2017 2:44 PM EDT Height 174 cm (5' 8.5 ) 10/14/2017 2:44 PM EDT Body Mass Index 35.06 10/14/2017 2:44 PM EDT documented in this encounter Functional [...] Kyle RMA * Does this person have serious [...] Entry Date Author Yes 08/09/2017 9:08 AM EDBirdie Lynn RMA documented in this encounter Progress Notes * Ruth Conteh MD - 10/14/2017 2:00 PM EDT Purpose of Consult Evaluation and management of diarrhea and guaiac positive stools (consultation requested by Sharee Segovia ARNP). Present Illness The patient is a 67-year-old woman who has had diarrhea, onset several months ago. She stated that her stools are a little loose, or watery. She underwent stool testing which was negative for C. difficile toxin, however, positive for occult blood. The patient did not report any overt bleeding, tenesmus, or proctalgia. She reported urgency associated with her bowel movements, and at times incontinence. The patient has never undergone colonoscopy Past Medical History: Diagnosis Date ??? Atrial flutter (HCC) EPS, AFL Ablation on 12/31/[address] Tee ??? CHF (congestive heart failure) (HCC) ??? COPD (chronic obstructive pulmonary disease) (HCC) ??? DDD (degenerative disc disease) ??? Diabetes mellitus (HCC) ??? Hypertension ??? Intellectual disability 05/03/2017 ??? [place] (myocardial infarction) (HCC) ??? RLS (restless legs [...] Brown MD; Location: [facility]; Service: Endoscopy Family History Problem Relation Age of Onset ??? Cancer Mother larnyx cancer ??? Colon Cancer Mother ??? Heart Disease Sister ??? No Known Problems Son ??? Seizures Daughter Social History Social History Substance Use Topics ??? Smoking status: Never Smoker ??? Smokeless tobacco: Never Used ??? Alcohol use No Comment: wednesday mass Immunization History Administered Date(s) Administered ??? Influenza Vaccine Quadrivalent PF 12/27/2015 ??? Pneumococcal Conjugate Vaccine 13 Valent 12/26/2015 ??? Pneumococcal Polysaccharide 23 Valent 07/26/2017 Review of Systems: Constitutional: Weight gain. No change in appetite. No fever or chills. No undue fatigue. HEENT: No sore throat or sores in mouth. No hoarseness. No ear pain. Respiratory: No cough or hemoptysis. Has SOB. No wheezing. No choking sensation. Cardiovascular: Has chest pain Gastrointestinal: See HPI. Musculoskeletal: Has aches and pains in joints. Genitourinary: Has frequency. No burning or dysuria. No hematuria. Skin: Has skin issues Extremities: Has ankle swelling. Neurological: No weakness. No headaches. Has history of stroke Hematological: Does bruise easily. Has not noticed any nodes. Current Outpatient Prescriptions: ??? acetaminophen 325 mg Oral Tab, Take 650 mg by mouth every 4 hours as needed for Pain., Disp: , Rfl: ??? dgqfi-L-tlhqktlitgjkh (ANTI-GAS ORAL), Take by mouth 3 times [...] mouth nightly., Disp: 30 Tab, Rfl: 2 Allergies Allergen Reactions ??? Compazine [Prochlorperazine Edisylate] ??? Bajandas ??? Pentazocine Hcl ??? Prochlorperazine Maleate ??? Talwin [Pentazocine Lactate] Physical Exam VITAL SIGNS: BP 122/78 Ht 5' 8.5 (1.74 m) Wt 234 lb (106.1 kg) BMI 35.06 kg/m?? Constitutional: Obese. In wheelchair. In no acute distress. HEENT: Normocephalic. No abnormalities noted in ears, nose or lips. Oral membranes moist; no exudates. Conjunctiva normal. No scleral icterus. EOM intact. Pupils equal. Neck: Supple. No JVD. No palpable nodes. Heart: Regular rate and rhythm. No murmurs appreciated. Chest: No respiratory distress; no use of accessory muscles. Clear bilaterally. No wheezing. Abdomen: Unremarkable on inspection. Soft; no guarding. Nontender. No mass or organomegally. Liver edge not palpable. BS audible. Rectal: Deferred. Skin: Warm. No rash. Back: No tender areas. No CVA tenderness. Extremities: No edema, cyanosis or clubbing. Neurologic: Alert & oriented x 3. No obvious focal deficits. Investigations Lab Results Component Value Date WBC 7.0 10/09/2017 HGB 12.7 10/09/2017 HCT 37.1 10/09/2017 MCV 85.9 10/09/2017 PLT 178 10/09/2017 Lab Results Component Value Date ALT 10 10/09/2017 AST 13 10/09/2017 GGT 49 (H) 09/09/2015 ALKPHOS 132 (H) 10/09/2017 BILIDIR <0.2 09/21/2017 LIPASE 24 09/09/2015 Impression and Recommendations The patient has guaiac positive stools, and she has not undergone screening colonoscopy The patient adamantly refused colonoscopy stating that it was bad. I had a long discussion with patient convincing her that colonoscopy would not be painful at all. She stated that the prep was bad . I conceded that the prep might be bad , but it is only for an evening. I further told her, that whoever scared her from the prep, cannot be a friend of hers, because that person went to bed prep and at least has been screened and knows that she does not have colon cancer, whereas the patient doesnot. The patient will reconsider her stance on colonoscopy. In addition to screening, colonoscopy would help rule out microscopic colitis as a cause of her diarrhea. Meanwhile, the patient can keep takingImodium I would like to thank Sharee Segovia ARNP for allowing my participation in this patient's care. Electronically signed by: Ruth Conteh MD, 10/14/2017 3:06 PM CC: hSaree Segovia ARNP documented in this encounter Plan of Treatment Scheduled Referrals Name Type Priority Associated Diagnoses Order Schedule AMB REFERRAL TO GASTROENTEROLOGY Outpatient Referral Routine Positive occult stool blood test Ordered: 08/12/2017 documented as of this encounter Goals Goal [...] 6.6( 9 9:49 AM EST) No Silva Mtahew RMA documented as of this encounter Visit Diagnoses Diagnosis Positive occult stool blood test- Primary Nonspecific abnormal finding in stool contents Diarrhea, unspecified type documented in this encounter Additional Health Concerns Assessment Noted Time A fall risk assessment has been complete d for the patient 04/21/2017 10:52 AM EST documented as of this encounter Care Teams Powder Monkey Relationship Specialty Start Date End Date Sharee Segovia APRN [address] [place] [id number] PCP - General Nurse Practitioner-Family 09/21/16 documented as of this encounter
--- OUTSIDE RECORDS SUMMARY | 2024-02-16 14:52 | XMS_ITS | Encounter Summary ---
Author Organization [place] [address] Care Team Providers Care Senior Solutions Architect Name Role Phone SegoviaSharee nichols NIKO Primary Care Provider [phone] Reason for Visit * Reason Comments Diabetes Nail Problem Calluses * In Office Procedure (Routine) - Closed Specialty Diagnoses / Procedures Referred By Arsh patel Referred To Contact Diagnoses Tinea unguium Type 2 diabetes mellitus with diabetic polyneuropathy (HCC) Procedures CA DEBRIDEMENT OF NAILS, 6 OR MORE Mayo Muse, DPM [address] [place] [address] Phone: tel: fax: Mayo Muse, DPM [address] [place] [address] Phone: tel: fax: Referral ID Status Reason Start Date Expiration Date Visits Re quested Visits Authorized [id number] Closed 03/03/2018 03/03/2019 1 1 Encounter Details Date Type Department Care Team (Latest Contact Info) Description 03/03/2018 2:40 PM EST Procedure visit [facility] [place] [address] [place] [address] Mayo Muse, DPM [address] [place] [address] Pre-ulcerative calluses (Primary Dx); Onychomycosis; Uncontrolled type 2 diabetes mellitus with peripheral [...] - - Weight 106.6 kg (235 lb) 03/03/2018 3:19 PM EST Height 174 cm (5' 8.5 ) 03/03/2018 3:19 PM EST Body Mass Index 35.21 03/03/2018 3:19 PM EST documented in this encounter Functional [...] Progress Notes * Mayo Muse DPM - 03/03/2018 2:40 PM EST [facility] Surgery Outpatient Progress Note Mayo Muse DPM Name: Faby Palm Primary Care Physician: Sharee Segovia ARNP Chief Complaint: Chief Complaint Patient presents with ??? Diabetes ??? Nail Problem ??? Calluses History of Presenting Illness: Faby Palm is a 67 y.o. female who is here for painful toenails 1-5 of both feet. Relates thatpain is with shoe pressures. No new pedal complaints. Medications: Outpatient Prescriptions Marked as Taking for the 03/03/18 encounter (Procedure visit) with Mayo Muse DPM Medication Sig Dispense Refill ??? acetaminophen 325 mg Oral Tab Take 650 mg by mouth every 4 hours as needed for Pain. Pt takes 1to 2 tabs as needed ??? [id number]-A-rtjpyujkgtmen (ANTI-GAS ORAL) Take by mouth 3 times [...] needed. HM ANTACID -ANTIGAS FILEMON 20 ML Allergies Allergen Reactions ??? Compazine [Prochlorperazine Edisylate] ??? [place] ??? Pentazocine Hcl ??? Prochlorperazine Maleate ??? [place] [Pentazocine Lactate] Past Medical History: Diagnosis Date ??? Atrial flutter (HCC) EPS, AFL Ablation on 12/31/[address] Tee ??? CHF (congestive heart failure) (HCC) ??? COPD (chronic obstructive pulmonary disease) (HCC) ??? DDD (degenerative disc disease) ??? Diabetes mellitus (HCC) ??? Hypertension ??? Intellectual disability 05/03/2017 ??? [place] (myocardial infarction) (HCC) ??? RLS (restless legs [...] AND BRUSHING; Surgeon: Be Brown MD; Location: [facility]; Service: Endoscopy Family History Problem [...] ??? None Social History Narrative Lives at [facility] Has two children and two grandchildren. [...] negative. Physical Examination: Vital Signs: Ht 5' 8.5 (1.74 m) Wt 235 lb (106.6 kg) BMI 35.21 kg/m?? General: Faby appears in no acute distress Skin: warm, dry, and intact Head: Normocephalic, without obvious abnormality, atraumatic Lungs: Breathing unlabored Neurological: sensation grossly normal. LE exam separate. LOWER EXTREMITY FOCUSED EXAM: Nail plates of 1-5 bilateral toes are long thickened brittle and dystrophic. No gross paronychia isnoted the adjacent nail folds. No gross evidence of pyogenic granuloma is noted. Grossly mycotic appearing with subungual debris. No gross evidence of subungual abscess. +Pain to palpation. Monofilament & Eye Exam 04/21/2017 07/15/2017 Foot Exam Performed? Yes Yes R Posterior Tibial Present Absent L Posterior Tibial Present Absent R Dorsalis Pedis Present Present L Dorsalis Pedis Present Present R Monofilament Decreased Decreased L Monofilament Decreased Decreased R Inspection Normal Normal L Inspection Normal Normal Assessment: Faby was seen today for diabetes, nail problem and calluses. Diagnoses and all orders for this visit: Pre-ulcerative calluses - CA DEBRIDEMENT OF NAILS, 6 OR MORE Onychomycosis - CA DEBRIDEMENT OF NAILS, 6 OR MORE 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 (HCC) - CA DEBRIDEMENT OF NAILS, 6 OR MORE - Debrided mycotic appearing hypertrophied nails of both dystrophic thickening and length to reliefof all affected toes. No new orders regarding nail treatment. - Encouraged daily foot examinations. Call immediately with signs or symptoms of infection which were discussed. - Follow up in 3 months. LEEANN Mcgrath 03/03/2018 Note written by LEEANN Mcgrath acting as scribe for Mayo Muse DPM. The following was discussed with Ms. Palm during today's visit: ?? The importance of good blood pressure control to prevent cardiovascular and end organ complications. Recommended follow up with PCP to address abnormal elevation noted today. documented in this encounter Miscellaneous Notes * Patient Instructions - Lew Garcia ABR-OE - 03/03/2018 3:40 PM EST Images from the original note were not included. Mayo Hobbs DPM or the staff today noticed that you have findings that are out of the recommendations that [facility] uses to optimize our patients health and outcomes. Today this was specific to: ?? Last A1c was more than 6 months ago - Based on review of our records it appears that you have diabetes or another blood sugar metabolism condition that is monitored with an A1c. Consistently having a A1c below 7 has been shown to significantly decrease risk of developing or worsening end organ damage which includes the heart, kidneys, brain, eyes, and others. The national specialty organizations that set the best practice guidelines for management of this condition recommend A1c monitoring at least every six months. At [facility] we strive to follow these guidelines because they give our patients the best chances for the best possible outcomes. We noticed today that you were beyond that timeframe and encourage you to complete your A1c monitoring as soon as possible if it was orderedfor you today by Mayo Muse DPM, or contact the provider that helps you manage and monitor your A1c to get this testing completed. ?? Blood Pressure Control - It is well documented in clinical studies that reaching the target goals for management of this condition significantly decrease risk of developing or worsening end organ damage which includes the heart, kidneys, brain, eyes, and others. Mayo Muse DPM strongly encourages you to schedule follow up with your regular provider for this issue as soon as you can.They can help you develop or adjust your plan to maximize your control of this issue and minimize your ongoing risk of serious complications that may impact your health and overall quality of life. We continue to strive as your health care community towards our goal of being the healthiest area in the country. Thank you for allowing us to help you get there. Sincerely. Mayo Muse DPM and Staff Patient Education Diabetes and Foot Care Diabetes may cause you to have problems because of poor blood supply (circulation) to your feet andlegs. This may cause the skin on your feet to become thinner, break easier, and heal more slowly. Your skin may become dry, and the skin may peel and crack. You may also have nerve damage in your legs and feet causing decreased feeling in them. You may not notice minor injuries to your feet that could lead to infections or more serious problems. Taking care of your feet is one of the most important things you can do for yourself. Follow these instructions at home: ?? Wear shoes at all times, even in the house. Do not go barefoot. Bare feet are easily injured. ?? Check your feet daily for blisters, cuts, and redness. If you cannot see the bottom of your feet, use a mirror or ask someone for help. ?? Wash your feet with warm water (do not use hot water) and mild soap. Then pat your feet and the areas between your toes until they are completely dry. Do not soak your feet as this can dry your skin. ?? Apply a moisturizing lotion or petroleum jelly (that does not contain alcohol and is unscented) to the skin on your feet and to dry, brittle toenails. Do not apply lotion between your toes. ?? Trim your toenails straight across. Do not dig under them or around the cuticle. File the edges of your nails with an emery board or nail file. ?? Do not cut corns or calluses or try to remove them with medicine. ?? Wear clean socks or stockings every day. Make sure they are not too tight. Do not wear knee-highstockings since they may decrease blood flow to your legs. ?? Wear shoes that fit properly and have enough cushioning. To break in new shoes, wear them for just a few hours a day. This prevents you from injuring your feet. Always look in your shoes before you put them on to be sure there are no objects inside. ?? Do not cross your legs. This may decrease the blood flow to your feet. ?? If you find a minor scrape, cut, or break in the skin on your feet, keep it and the skin around it clean and dry. These areas may be cleansed with mild soap and water. Do not cleanse the area withperoxide, alcohol, or iodine. ?? When you remove an adhesive bandage, be sure not to damage the skin around it. ?? If you have a wound, look at it several times a day to make sure it is healing. ?? Do not use heating pads or hot water bottles. They may burn your skin. If you have lost feeling in your feet or legs, you may not know it is happening until it is too late. ?? Make sure your health care provider performs a complete foot exam at least annually or more often if you have foot problems. Report any cuts, sores, or bruises to your health care provider immediately. Contact a health care provider if: ?? You have an injury that is not healing. ?? You have cuts or breaks in the skin. ?? You have an ingrown nail. ?? You notice redness on your legs or feet. ?? You feel burning or tingling in your legs or feet. ?? You have pain or cramps in your legs and feet. ?? Your legs or feet are numb. ?? Your feet always feel cold. Get help right away if: ?? There is increasing redness, swelling, or pain in or around a wound. ?? There is a red line that goes up your leg. ?? Pus is coming from a wound. ?? You develop a fever or as directed by your health care provider. ?? You notice a bad smell coming from an ulcer or wound. This information is not intended to replace advice given to you by your health care provider. Make sure you discuss any questions you have with your health care provider. Document Released: 02/19/2001 Document Revised: 07/30/2016 Document Reviewed: 08/01/2013 [employer] Interactive Patient Education ?? 2017 [employer] documented in this encounter Plan of Treatment Scheduled Orders Name Type Priority Associated Diagnoses Orde r Schedule CA DEBRIDEMENT OF NAILS, 6 OR MORE CA Charge Routine Pre-ulcerative calluses Onychomycosis 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 (HCC) Ordered: 03/03/2018 documented as of this encounter Goals Goal [...] as of this encounter Visit Diagnoses Diagnosis Pre-ulcerative calluses- Primary Corns and callosities Onychomycosis Dermatophytosis of nail 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 documented in this encounter Additional Health Concerns Assessment Noted Time A fall risk assessment has been complete d for the patient 04/21/2017 10:52 AM EST documented as of this encounter Care Teams Senior Solutions Architect Relationship Specialty Start Date End Date Sharee Segovia APRN [address] [place] [id number] PCP - General Nurse Practitioner-Family 09/21/16 documented as of this encounter
--- OUTSIDE RECORDS SUMMARY | 2024-02-16 14:52 | XMS_ITS | Encounter Summary ---
Author Organization [place] [address] Care Team Providers Care Sheet Pile Hammer Operator Name Role Phone Sharee Segovia APRN Primary Care Provider [phone] Reason for Visit * Reason Comments Suicidal pt to ed with compla ints of feeling suicidal with a plan, pt was seen by her therapist today and called the police for transport to the hospital, pt states I have a plan and a back up plan cpta-none Rib Pain fell a week ago comp lains of right rib pain Encounter Details Date Type Department Care Team (Late st Contact Info) Description 03/30/2018 1:50 PM EST - 03/30/2018 6:13 PM EST Emergency [facility] Emergency [address] [place] [address] Tr Henry MD [address] [place] [address] Suicidal ideation (Primary Dx); Rib pain on right side Discharge Disposition: Critical Access Hospital Social History Tobacco Use Types Packs/Day [...] Sign Reading Time Taken Comments Blood Pressure 155/84 03/30/2018 5:15 PM EST Pulse 72 03/30/2018 5:15 PM EST Temperature 36.3 ??C (97.4 ??F) 03/30/2018 1:53 PM ES T Respiratory Rate 16 03/30/2018 5:15 PM EST Oxygen Saturation 97% 03/30/2018 5:15 PM EST Inhaled Oxygen Concentration - - Weight 100.7 kg (222 lb) 03/30/2018 1:53 PM EST Height 172.7 cm (5' 8 ) 03/30/2018 1:53 PM EST Body Mass Index 33.75 03/30/2018 1:53 PM EST documented in this encounter Functional [...] type Take 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 And Takes 100 mg at night pantoprazole [...] Oral TabletIndications:NS NORMA (non-ST elevated myocardial infarction) ([facility]),ASHD (arteriosclerotic heart disease),Essential hypertension,Chronic diastolic CHF (congestive heart failure) ([facility]),Hyperlipidemia , unspecified hyperlipidemia type Take 20 mg [...] 0.4 mg SL Tablet, SublingualIndication s:Angina pectoris ([facility]) Place 1 Tab under the tongue every 5 minutes as needed for Chest pain. 20 Tab 2 11/19/2016 9 omega-3 acid ethyl esters (LOVAZA) 1 gram Oral Capsule Take 1 g by mouth 2 times daily. 9 risperiDONE (RISPERDAL) 0.5 mg Oral Tablet Take 0.5 mg by mouth nightly. 9 documented as of this encounter Discharge Disposition Disposition Code Departure Means Destination Comment s [facility] Access [facility] to [facility] via [facility] documented in this encounter ED Notes * Ximena Armendariz RN - 03/30/2018 6:10 PM EST [facility] here to transport patient, report to EMT. Patient alert and oriented, verbalized understanding of transfer. Clothes and walker to EMT. Patient to [facility]. * Ximena Armendariz RN - 03/30/2018 5:45 PM EST Report to Ximena at [facility]. * Camille Tillman RN - 03/30/2018 5:17 PM EST Ximena @ [place] accepts pt; [facility] ETA = 1800PM Renata aware * Bessie North MSW - 03/30/2018 4:19 PM EST Reviewed chart. Met with pt who was alert and oriented. Pt reports residing with herself at [facility]. Per chart review pt has a h/o Suicidal ideation and a mild intellectual disability. Pt???s last MH hospitalization was 10/09/17 for SI. Pt has current MH providers at [facility]. Pt currently + for SI w/ plan to drink drano or to put dark clothes on and sit in front of the train and states if I'm gone no one is going to miss me. Pt reports dysfunctional relationship as a trigger. - for HI. + for V hallucinations of cats wandering around. Pt denies ETOH/illicit drug use.Pt gave verbal consent for SW to call Frans[place] at [facility] and Nii returned the call to fill SW on finer details and reported that all sharp items such as razors and all cleaning supplies and hazardous liquids have been removed from her home and she is monitored. Pt is on a 72hour hold as they are of imminent risk to themselves. LISA consulted with PRAVIN Hughes with directions to send referral to [place]. Pt is agreeable to admission. Consulted with: PRAVIN Hughes Sent referral via [facility] Care Link to: [facility] Pt logistics notified. * Kendall Hughes PA-C - 03/30/2018 1:42 PM EST Chief Complaint Patient presents with ??? Suicidal pt to ed with complaints of feeling suicidal with a plan, pt was seen by her therapist today and called the police for transport to the hospital, pt states I have a plan and a back up plan cpta-none ??? Rib Pain fell a week ago complains of right rib pain This is a 67-year-old female seen for Dr. Henry. Patient presents to the ER with police from [facility] therapist office, where she reported suicidal ideation with plan to drink Drano. She denies attempted self-harm. She tells me this stems from her lover no longer wanting to be involved with her as he has found somebody else. She tells me a week ago she tripped and struck her right rib area on a chair. She did not strike her head, neck, or other portion of her body. She denies fever, headache, neck pain, difficulty breathing, abdominal pain, vomiting, hematuria, dysuria, or any other complaint. History provided by: Patient Patient History Allergies Allergen Reactions ??? Compazine [Prochlorperazine Edisylate] ??? [place] ??? Pentazocine Hcl ??? Prochlorperazine Maleate ??? Talwin [Pentazocine Lactate] Home Medications: Prior to Admission medications Medication Sig Start Date End Date Taking? Authorizing Provider acetaminophen 325 mg Oral Tab Take 650 mg by mouth every 4 hours as needed for Pain. Pt takes 1 to 2 tabs as needed Yes Provider, Historical nyvxg-C-oyghoonnukrin (ANTI-GAS ORAL) Take by mouth 3 times daily as needed. Yes Provider, Historical amLODIPine (NORVASC) 2.5 mg [...] (with meals). 04/04/15 Yes Campbell Huston MD fUROsemide (LASIX) 20 mg Oral Tablet Take 20 mg by mouth daily. Yes Provider, Historical gabapentin (NEURONTIN) 100 mg Oral Capsule Take 200 mg by mouth 3 times daily. Yes Provider, Historical insulin glargine (LANTUS) 100 unit/mL SubQ Solution 30 units sq nightly 08/09/17 Yes Sharee Segovia ARNP isosorbide mononitrate (IMDUR) 60 mg Oral Tablet Sustained Release 24 hr TAKE ONE TABLET BY MOUTH ONCE DAILY 03/24/17 Yes Joanna Pierce MD lamoTRIgine (LAMICTAL) 100 mg Oral Tablet Take 50 mg by mouth 2 times daily. Takes 100 mg at night Yes Provider, Historical metFORMIN XR (GLUCOPHAGE-XR) 500 mg Oral Tablet Sustained Release 24 hr Take 500 mg by mouth daily (with breakfast). Yes Provider, Historical metoprolol (LOPRESSOR) 25 mg Oral Tablet Take 25 mg by mouth 2 times daily. Yes Provider, Historical nitroGLYCERIN (NITROSTAT) 0.4 mg SL Tablet, Sublingual Place 1 Tab under the tongue every 5 minutesas needed for Chest pain. 11/19/16 Yes Sharee Segovia ARNP omega-3 acid ethyl esters (LOVAZA) 1 gram Oral Capsule Take 1 g by mouth 2 times daily. Yes Provider, Historical pantoprazole (PROTONIX) 40 mg Oral Tablet, Delayed Release (E.C.) Take 1 Tab by mouth daily. 09/21/17 Yes Ernie Pizano MD QUEtiapine (SEROQUEL) 50 mg Oral Tablet Take 50 mg by mouth nightly. Yes Provider, Historical sertraline (ZOLOFT) 100 mg Oral Tablet Take 200 mg by mouth daily. Reported on 08/12/2016 Yes Provider, Historical glipiZIDE (GLUCOTROL) 10 mg Oral Tablet Take 10 mg by mouth 2 times daily. Provider, Historical lamoTRIgine (LAMICTAL) 25 mg Oral Tablet Take 1 Tab by mouth 2 times daily. Patient not taking: Reported on 03/30/2018 05/12/17 Eric Gavin MD lisinopril (PRINIVIL;ZESTRIL) 20 mg Oral Tablet Take 20 mg by mouth every morning. Provider, Historical loperamide (IMODIUM) 2 mg Oral Capsule Take 2 mg by mouth 3 times daily as needed. Provider, Historical Melatonin 3 mg Oral Tablet Take 5 mg by mouth nightly. Provider, Historical pantoprazole (PROTONIX) 40 mg Oral Tablet, Delayed Release (E.C.) Take 40 mg by mouth. 2 tabs at bedtime Provider, Historical RANEXA 1,000 mg Oral Tablet Sustained Release 12 hr TAKE ONE TABLET BY MOUTH EVERY 12 HOURS Patient not taking: Reported on 03/30/2018 10/06/17 Joanna Pierce MD risperiDONE (RISPERDAL) 0.5 [...] Tablet Take 1 Tab by mouth nightly. Patient not taking: Reported on 03/30/2018 08/09/17 Sharee Segovia ARNP UNABLE TO FIND [...] Dr. Tee ??? CHF (congestive heart failure) ([facility]) ??? COPD (chronic obstructive pulmonary disease) ([facility]) ??? DDD (degenerative disc disease) ??? Diabetes mellitus ([facility]) ??? Hypertension ??? Intellectual disability 05/03/2017 ??? MD (myocardial infarction) ([facility]) ??? RLS (restless legs syndrome) ??? Schizoaffective disorder, depressive type ([facility]) 02/19/2017 ??? Stroke ([facility]) 2010 left side affected ??? Suicide attempt ([facility]) ??? Urinary incontinence ??? Yeast infection recurrent [...] AND BRUSHING; Surgeon: Chrissy Brown MD; Location: T ENDOSCOPY; Service: Endoscopy Review of Systems Review of Systems All other systems reviewed and are negative. Physical Exam Blood pressure 167/83, pulse 70, temperature 97.4 ??F (36.3 ??C), temperature source Oral, resp. rate 18, height 5' 8 (1.727 m), weight 222 lb (100.7 kg), SpO2 97 %, not currently . Physical Exam Constitutional: She is oriented to person, place, and time. She appears well- developed and well-nourished. No distress. HENT: Head: Normocephalic and atraumatic. Right Ear: External ear normal. Left Ear: External ear normal. Nose: Nose normal. Mouth/Throat: Oropharynx is clear and moist. No oropharyngeal exudate. Eyes: Pupils are equal, round, and reactive to light. Conjunctivae and EOM are normal. Right eye exhibits no discharge. Left eye exhibits no discharge. No scleral icterus. Neck: Normal range of motion. Neck supple. Cardiovascular: Normal rate and regular rhythm. Pulmonary/Chest: Effort normal and breath sounds normal. No respiratory distress. She has no wheezes. She has no rales. She exhibits tenderness. Ecchymosis over right rib area. Abdominal: Soft. Bowel sounds are normal. She exhibits no distension and no mass. There is no tenderness. There is no rebound and no guarding. Musculoskeletal: Normal range of motion. Neurological: She is alert and oriented to person, place, and time. Skin: Skin is warm. She is not diaphoretic. Psychiatric: Her behavior is normal. She exhibits a depressed mood. She expresses suicidal ideation. She expresses suicidal plans. Nursing note and vitals reviewed. Procedures Radiology/EKG/Labs: XR RIBS RIGHT W PA CHEST Final Result There is no acute finding. There is a remote right posterior sixth rib fracture. Labs Reviewed BASIC METABOLIC PANEL - Abnormal; Notable for the following: Result Value Glucose Lvl 115 (*) GFR Afr Am 56 (*) GFR Non Afr Am 48 (*) All other components within normal limits HEPATIC FUNCTION PANEL - Abnormal; Notable for the following: Alk Phos 199 (*) All other components within normal limits SALICYLATE LEVEL - Normal ALCOHOL MEDICAL - Normal CBC WITH DIFF ACETAMINOPHEN LEVEL Narrative: Therapeutic: 10-30 mcg/ml Supratherapeutic: > 35 mcg/ml Toxic: > 150 mcg/ml (4h post ingestion) > 75 mcg/ml (8h post ingestion) > 40 mcg/ml (12h post ingestion) DRUGS OF ABUSE, SCREEN ONLY, URINE Narrative: These drug classes have been qualitatively screened by immunoassay and are for medical purposes only. Results reported as presumptive positive have not been confirmed. If results don???t reflect the clinical picture, the prescribed medication, or the discussion with the patient, confirmation testing is recommended on the ORIGINAL urine. All urine specimens for drug testing are held for 7 days. If confirmation testing is desired, call the Lab [facility]. Due to possible factors, such as, dilute/adulterated urine, concentration of drug/metabolite being below the cut-off, or antibody specificity of test reagent, a negative result does not rule out druguse. These results are only valid for urine specimens. Any contamination with vaginal pool/amniotic fluid could cause erroneous results. TSH REFLEX ED Course: Appropriate laboratory and radiology studies reviewed This patient is interviewed, examined, and discussed with Dr. Henry. Patient presents as above. Patient placed on 72 hours hold for safety. Work up as above reviewed with patient. Repeat abdominal exam benign. Plan is for admission to [facility]. ED Clinical Impression: Suicidal ideation Right rib injury Critical Care time Condition at Discharge/Transfer from Department: Stable This chart was completed using voice recognition technology and may contain unintended errors Kendall Hughes PA-C 03/30/18 1611 Cosigned by Tr Henry MD at 03/31/2018 4:59 PM EST Associated attestation - Tr Henry MD - 03/31/2018 4:59 PM EST I have reviewed the chief complaint and history of present illness and review of systems as well asthe past medical/social/family history sections for this patient. I have examined this patient, andparticipated in the care of this patient. I have reviewed the pertinent clinical information including physical exam, labs, radiographic studies and the plan. This patient was seen in coordination with PA/MAGAZINE SUPERVISOR. This chart was completed using voice recognition technology and may contain unintended errors documented in this encounter Plan of Treatment [...] Procedure Name Priority Date/Time Associated Diagnosis Comments DRUGS OF ABUSE, SCREEN ONLY, URINE STAT 03/30/2018 2:53 PM EST XR RIBS RIGHT W PA CHEST EMMY 03/30/2018 2:49 PM EST TSH REFLEX STAT 03/30/2018 2:25 PM EST CBC WITH DIFF STAT 03/30/2018 2:25 PM EST ALCOHOL MEDICAL STAT 03/30/2018 2:25 PM EST ACETAMINOPHEN LEVEL STAT 03/30/2018 2 :25 PM EST SALICYLATE LEVEL STAT 03/30/2018 2:25 PM EST HEPATIC FUNCTION PANEL STAT 9 2:25 PM EST BASIC METABOLIC PANEL STAT 03/30/2018 2:25 PM EST documented in this encounter Results * DRUGS OF ABUSE, SCREEN ONLY, URINE (03/30/2018 2:53 PM EST) 6 AM (Heroin) Absent Cutoff 10 ng/mL 03/30/2018 3:22 PM EST [facility] Amphetamines Absent Cutoff 500 ng/mL 03/30/2018 3:22 PM [facility] Barbiturates Absent Cutoff 200 ng/mL 03/30/2018 3:22 PM [facility] Benzodiazepines Absent Cutoff 200 ng/mL 03/30/2018 3:22 PM [facility] Buprenorphine Absent Cutoff 5 ng/mL 03/30/2018 3:22 PM [facility] Cannabinoid Metabolite Absent Cutoff 50 ng/mL 03/30/2018 3:22 PM EST [facility] Cocaine Metabolite Absent Cutoff 150 ng/mL 03/30/2018 3:22 PM [facility] Methadone and Metabolite Absent Cutoff 300 ng/mL 03/30/2018 3:22 PM [facility] Opiate Absent Cutoff 300 ng/mL 03/30/2018 3:22 PM [facility] Oxycodone Lvl Absent Cutoff 100 ng/mL 03/30/2018 3:22 PM [facility] Phencyclidine Absent Cutoff 25 ng/mL 03/30/2018 3:22 PM [facility] Creatinine Ur >25.0 mg/dL 03/30/2018 3:22 PM [facility] Comment: Greater than 20: Consistent with valid sample Greater than 2 but less than 20: Possible dilution Less than 2: Questionable valid sample Urine URINE SPECIMEN COLLECTION / Unknown 03/30/2018 2:53 PM EST 03/30/2018 2:56 PM EST Narrative [facility] - 03/30/2018 3:22 PM EST These drug classes have been qualitatively screened by immunoassay and are for medical purposes only. Results reported as presumptive positive have not been confirmed. If results don? t reflect the clinical picture, the prescribed medication, or the discussion with the patient, confirmation testing is recommended on the ORIGINAL urine. All urine specimens for drug testing are held for 7 days. If confirmation testing is desired, call the Lab [facility]. Due to possible factors, such as, dilute/adulterated urine, concentration of drug/metabolite being below the cut-off, or antibody specificity of test reagent, a negative result does not rule out drug use. These results are only valid for urine specimens. Any contamination with vaginal pool/amniotic fluid could cause erroneous results. ?? us Tr Henry MD URINE ORDERABLES Final Result [facility] [address] [place] [address] * XR RIBS RIGHT W PA CHEST (03/30/2018 2:49 PM EST) Anatomical Region Laterality Modality Chest Radiographic Whit ging 03/30/2018 2:49 PM EST Impressions 03/30/2018 3:26 PM EST There is no acute finding. There is a remote right posterior sixth rib fracture. Narrative 03/30/2018 3:26 PM EST XR RIBS RIGHT W PA CHEST, ??03/30/2018 2:49 PM CLINICAL HISTORY: ??-SUICIDAL -RIB PAIN COMPARISON: ??PA and lateral chest x-ray, dated 09/20/2017. PROCEDURE COMMENTS: Routine imaging of the chest with unilateral rib detail per protocol. FINDINGS: ?? There is a remote right posterior sixth rib fracture. This is unchanged from a September 2017 study. There is no pneumothorax. The lungs are clear. There are no acute displaced rib fractures in the right chest. Procedure Note Jennifer Evangelista MD - 03/30/2018 XR RIBS RIGHT W PA CHEST, 03/30/2018 2:49 PM CLINICAL HISTORY: -SUICIDAL -RIB PAIN COMPARISON: PA and lateral chest x-ray, dated 09/20/2017. PROCEDURE COMMENTS: Routine imaging of the chest with unilateral ribdetail per protocol. FINDINGS: There is a remote right posterior sixth rib fracture. This is unchangedfrom a September 2017 study. There is no pneumothorax. The lungs are clear. There areno acute displaced rib fractures in the right chest. IMPRESSION: There is no acute finding. There is a remote right posterior sixth rib fracture. us Tr Henry MD IMG DIAGNOSTIC IMAGING ORDERA BLES Final Result * (ABNORMAL) HEPATIC FUNCTION PANEL (03/30/2018 2:25 PM EST) Total Protein 7.3 6.4 - 8.3 gm/dL 03/30/2018 2:57 PM EST [facility] Albumin 4.1 3.2 - 4.6 gm/dL 03/30/2018 2:57 PM EST [facility] Bili Direct <0.2 0.0 - 0.3 mg/dL 03/30/2018 2:57 PM EST [facility] Bili Total 0.5 0.1 - 1.3 mg/dL 03/30/2018 2:57 PM EST [facility] AST 12 <=40 IU/L 03/30/2018 2:57 PM EST [facility] ALT 5 <=41 IU/L 03/30/2018 2:57 PM EST [facility] Alk Phos 199(H) 35 - 104 IU/L 03/30/2018 2:57 PM EST [facility] Blood VENOUS BLOOD / Unknown Venipuncture / Unknown 03/30/2018 2:25 PM EST 03/30/2018 2:31 PM EST Tr Henry MD CHEMISTRY ORDERABLES Final Re sult [facility] [address] [facility] [place] [address] * TSH REFLEX (03/30/2018 2:25 PM EST) TSH Reflex 2.100 0.270 - 4.200 mcIU/mL 03/30/2018 6:07 PM EST [email or web address] Blood VENOUS BLOOD / Unknown Venipuncture / Unknown 03/30/2018 2:25 PM EST 03/30/2018 2:31 PM EST Narrative [facility] [employer] - 03/30/2018 6:07 PM EST Ingestion of charles doses of biotin (>5 mg/day) taken within 8 hours of drawing blood sample can interfere with this immunoassay test. us Tr Henry MD CHEMISTRY ORDERABLES Final Re sult Performing Organization Address [facility] Co de Phone Number [email or web address] [address] [facility] , [place] [address] * ALCOHOL MEDICAL (03/30/2018 2:25 PM EST) Alcohol Medical <10 <=10 mg/dL 03/30/2018 2:57 PM EST [facility] Blood VENOUS BLOOD / Unknown Venipuncture / Unknown 03/30/2018 2:25 PM EST 03/30/2018 2:31 PM EST us Tr Henry MD CHEMISTRY ORDERABLES Final Re sult Performing Organization Address [facility] Phone Number [address] [address] * SALICYLATE LEVEL (03/30/2018 2:25 PM EST) Salicylate <0.3 <=0.3 mg/dL 03/30/2018 2:55 PM EST [facility] Blood VENOUS BLOOD / Unknown Venipuncture / Unknown 03/30/2018 2:25 PM EST 03/30/2018 2:31 PM EST us Tr Henry MD CHEMISTRY ORDERABLES Final Re sult Performing Organization Address [facility] de Phone Number [facility] [address] [place] [address] * ACETAMINOPHEN LEVEL (03/30/2018 2:25 PM EST) Acetaminophen Lvl <15.0 mcg/mL 019 2:55 PM EST [facility] Blood VENOUS BLOOD / Unknown Venipuncture / Unknown 03/30/2018 2:25 PM EST 03/30/2018 2:31 PM EST Narrative [facility] - 03/30/2018 2:55 PM EST Therapeutic: ? 10-30 mcg/ml Supratherapeutic: ?> 35 mcg/ml Toxic: ? > 150 mcg/ml (4h post ingestion) ? > ??75 mcg/ml (8h post ingestion) ? > ??40 mcg/ml (12h post ingestion) ?? us Tr Henry MD CHEMISTRY ORDERABLES Final Re sult [facility] [address] [place] [address] * (ABNORMAL) BASIC METABOLIC PANEL (03/30/2018 2:25 PM EST) [facility] Sodium 143 136 - 145 mmol/L 03/30/2018 2:57 PM EST [facility] Potassium 4.3 3.5 - 5.0 mmol/L 03/30/2018 2:57 PM EST [facility] Chloride 107 98 - 107 mmol/L 03/30/2018 2:57 PM [facility] Total CO2 23 22 - 29 mmol/L 03/30/2018 2:57 PM EST [facility] Anion Gap 13 7 - 16 mmol/L 03/30/2018 2:57 PM EST [facility] Calcium 9.7 8.8 - 10.2 mg/dL 03/30/2018 2:57 PM [facility] Glucose Lvl 115(H) 82 - 100 mg/dL 03/30/2018 2:57 PM EST [facility] BUN 18 8 - 23 mg/dL 03/30/2018 2:57 PM EST [facility] Creatinine 1.18 0.51 - 1.30 mg/dL 03/30/2018 2:57 PM EST [facility] GFR Afr Am 56(L) >=60 mL/min/1.7 3 m2 03/30/2018 2:57 PM EST [facility] GFR Non Afr Am 48(L) >=60 mL/min/1.7 3 m2 03/30/2018 2:57 PM EST [facility] Comment: This estimated GFR [...] VENOUS BLOOD / Unknown Venipuncture / Unknown 03/30/2018 2:25 PM EST 03/30/2018 2:31 PM EST us Tr Henry MD CHEMISTRY ORDERABLES Final Re sult [facility] [address] [address] * CBC WITH DIFF (03/30/2018 2:25 PM EST) WBC 6.8 4.0 - 11.0 x10(3)/mcL 03/30/2018 2:34 PM EST [facility] RBC 4.07 3.80 - 5.10 x10(6)/mcL 03/30/2018 2:34 PM EST [facility] Hgb 12.2 12.0 - 15.6 g/dL 03/30/2018 2:34 PM EST [facility] Hct 37.1 35.7 - 45.9 % 03/30/2018 2:34 PM EST [facility] MCV 91.3 82.5 - 99.8 fL 03/30/2018 2:34 PM EST [facility] MCH 30.1 27.0 - 34.3 pg 03/30/2018 2:34 PM EST [facility] MCHC 32.9 32.1 - 35.3 g/dL 03/30/2018 2:34 PM EST [facility] RDW 14.9 11.5 - 15.0 % 03/30/2018 2:34 PM EST [facility] Platelet 183 144 - 423 x10(3)/mcL 03/30/2018 2:34 PM EST [facility] MPV 9.1 6.8 - 10.8 fL 03/30/2018 2:34 PM EST [facility] Neut Percent 64.1 % 03/30/2018 2:34 PM EST [facility] Lymph Percent 26.0 % 03/30/2018 2:34 PM EST [facility] [place] Percent 5.5 % 03/30/2018 2:34 PM EST [facility] Eos Percent 3.3 % 03/30/2018 2:34 PM EST [facility] Baso Percent 1.1 % 03/30/2018 2:34 PM EST [facility] Neut # 4.4 1.8 - 7.7 x10(3)/mcL 03/30/2018 2:34 PM EST [facility] Lymph # 1.8 0.6 - 4.8 x10(3)/mcL 03/30/2018 2:34 PM EST [facility] [place] # 0.4 0.0 - 1.3 x10(3)/mcL 03/30/2018 2:34 PM EST [facility] Eos# 0.2 0.0 - 0.5 x10(3)/mcL 03/30/2018 2:34 PM EST [facility] Baso # 0.1 0.0 - 0.2 x10(3)/mcL 03/30/2018 2:34 PM EST [facility] Blood VENOUS BLOOD / Unknown Venipuncture / Unknown 03/30/2018 2:25 PM EST 03/30/2018 2:31 PM EST us Tr Henry MD HEMATOLOGY ORDERABLES Final R esult [facility] [address] [facility] [place] [id number] documented in this encounter Visit Diagnoses Diagnosis Suicidal ideation- Primary Rib pain on right side Chest pain, unspecified documented in this encounter Administered Medications Inactive Administered Medications - up to 1 most recent administrations Medication Order MAR Action Action Date Dose Rate Site acetaminophen (TYLENOL) tablet 500 mg 500 mg, Oral, ONCE, 1 dose, On Wed03/30/18 at 1615, Maximum adult dose of acetaminophen is 4000 mg from all sources in 24 hours. Given 03/30/2018 4:16 PM EST 500 mg documented in this encounter Historical Medications * This list may reflect changes made after this encounter. gabapentin (NEURONTIN) 100 mg Oral Capsule Take 200 mg by mouth 4 times daily. QUEtiapine (SEROQUEL) 50 mg Oral Tablet Take 100 mg by mouth nightly. metoprolol (LOPRESSOR) 25 mg Oral Tablet Take 25 mg by mouth 2 times daily. 04/25/2018 fUROsemide (LASIX) 20 mg Oral Tablet Take 20 mg by mouth daily. 08/14/2018 added in this encounter Active and Recently Administered Medications Times are shown in EST. Scheduled Medication Order 03/28/2018 03/29/2018 03/30/2018 acetaminophen (TYLENOL) tablet 500 mg (COMPLETED) 500 mg, Oral, ONCE, 1 dose, On Wed03/30/18 at 1615, Maximum adult dose of acetaminophen is 4000 mg from all sources in 24 hours. 1616 (Given - Provid er: Ximena Armendariz, RN) documented in this encounter Orders Nursing Count Last Ordered Date First Orde red Date CONTINUOUS VISUAL OBSERVATION 03/30/2018 Behavioral Health Services Count Last Ordered D ate First Ordered Date ED CONSULT FOR MENTAL HEALTH ASSESSMENT 1 0 03/30/2018 INITIATE PETITION FOR 72 HOUR HOLD 2018 documented in this encounter Additional Health Concerns Assessment Noted Time A fall risk assessment has been complete d for the patient 04/21/2017 10:52 AM EST documented as of this encounter Care Teams Sheet Pile Hammer Operator Relationship Specialty Start Date End Date Sharee Segovia APRN [address] [place] [phone] PCP - General Nurse Practitioner-Family 09/21/16 documented as of this encounter
--- OUTSIDE RECORDS SUMMARY | 2024-02-16 14:52 | XMS_ITS | Encounter Summary ---
Author Organization [place] [address] Care Team Providers Care Senior Linux Systems Administrator Name Role Phone Sharee Segovia APRN Primary Care Provider [phone] Reason for Visit * Reason Onset Date Comments Care Transition 01/19/2018 Care Management - Chart Review 01/19/2018 ED Follow-Up Call 01/19/2018 Encounter Details Date Type Department Care Team (Late st Contact Info) Description 01/19/2018 Patient Outreach [facility] [address] [place] [address] Katheryn Allen, sleep scientist; Care Management - Chart Review; ED Follow-Up Call Social History Tobacco Use Types Packs/Day Years [...] documented in this encounter Progress Notes * Katheryn Allen RN - 01/19/2018 9:52 AM EST Patient's chart reviewed related to recent ED discharge on 01/18/18, with a diagnosis of Candidal dermatitis. The patient has been in the ED 3 times in the past 6 months with 4 admissions as well. The patient lives in a Group homes & has a nurse who takes care of her & also has a doctor that rounds at the facility. I have followed the patient in the past. Patient is not a candidate for [facility] to follow at this time. Approved for MD Level 1. The patient is overdue for her Annual Wellness Exam at this time. The patient's last one was on 09/21/16. No upcoming appointments noted. documented in this encounter Miscellaneous Notes * Telephone Encounter - Deena Schmidt CCMA - 01/19/2018 11:52 AM EST LMTRC documented in this encounter Plan of Treatment Not on file documented as of this encounter Goals Goal Patient Goal Type Associated Problems Recent Progress Patient-Stated? Author Blood Pressure < 140/90 Blood Pressure 124/52(2018 4:00 PM EDT) No Silva Mathew RMA BMI (Calculated) < 30 General 35.6(10/06/19 4:56 PM EDT) No Silva Mathew, RMA [...] as of this encounter Care Teams Senior Linux Systems Administrator Relationship Specialty Start Date End Date Sharee Segovia APRN [address] [place] [phone] PCP - General Nurse Practitioner-Family 09/21/16 documented as of this encounter
--- OUTSIDE RECORDS SUMMARY | 2024-02-16 14:52 | XMS_ITS | Encounter Summary ---
Author Organization [place] [address] Care Team Providers Care Weight Loss Physician Name Role Phone Sharee Segovia MAIL SERVICE COORDINATOR Primary Care Provider [phone] Reason for Visit * Reason Onset Date Comments Tire Finisher Note 02/03/2018 Encounter Details Date Type Department Care Team (Late Contact Info) Description 02/03/2018 Telephone [facility] [address] [place] [address] Sharee Segovia APRN [address] [place], [place] [id number] Tire Finisher Note Social History Tobacco Use Types Packs/Day Years [...] No 08/09/2017 9:08 AM EDT Birdie Kyle RMRonaldo * Because of a physical, mental [...] Yes 08/09/2017 9:08 AM EDT Anabella Birdie JoannaTHEO documented in this encounter Miscellaneous Notes * Telephone Encounter - Sharee Segovia ARNP - 02/03/2018 11:32 PM EST Call to arrange an office visit Needs diabetes follow up and IRIS documented in this encounter Plan of Treatment [...] documented as of this encounter Care Teams Weight Loss Physician Relationship Specialty Start Date End Date Sharee Segovia APRN [address] [place], [place] [phone] PCP - General Nurse Practitioner-Family 09/21/16 documented as of this encounter
--- OUTSIDE RECORDS SUMMARY | 2024-02-16 14:52 | XMS_ITS | Encounter Summary ---
Author Organization [place] [address] Care Team Providers Care Wind Turbine Mechanic Name Role Phone Sharee Segovia LUMP ROLLER Primary Care Provider [phone] Reason for Visit * Reason Comments Medication Refill Encounter Details Date Type Department Care Team (Late st Contact Info) Description 10/06/2017 Refill [facility] [address] [place] [address] Joanna Hitchcock MD Medication Refill Social History Tobacco Use Types [...] Yes 08/09/2017 9:08 AM EDT Birdie Kyle THEO * Does this person have difficulty dressing or bathing? Answer Date of Assessment Author No 08/09/2017 9:08 AM EDT Birdie KyleTHEO * Because of a physical, mental or emotional condition, does this person have difficulty doing errands alone such as visiting a doctor's office or shopping? Answer Date of Assessment Author Yes 08/09/2017 9:08 AM EDT Birdie Kyle THEO documented as of this encounter Mental Status * Because of a physical, mental or emotional condition, does this person have serious difficulty concentrating, remembering or making decisions? Answer Entry Date Author Yes 08/09/2017 9:08 AM EDT Birdie Kyle THEO documented in this encounter Ordered Prescriptions Prescription Sig Dispense Quantity Refills Last Filled Start Date End Date RANEXA 1,000 mg Oral Tablet Sustained Release 12 hrIndications:Stabl e angina (HCC) TAKE ONE TABLET BY MOUTH EVERY 12 HOURS 60 Tab 10/06/2017 documented in this encounter Plan of Treatment Not on file documented as of this encounter Goals Goal Patient Goal Type Associated Problems Recent Progress Patient-Stated? Author Blood Pressure < 140/90 Blood Pressure 124/52(2018 4:00 PM EDT) Silva Mead RMA BMI (Calculated) < 30 General 35.6(10/06/19 19 4:56 PM EDT) Silva eMad RMA Maintain a healthy diet, exercise regularly and maintain an ideal body weight General No Silva Mathew RMA HEMOGLOBIN A1C < 7.0 Result Component 6.6( 9 9:49 AM EST) No Silva Mathew RMA documented as of this encounter Visit Diagnoses Diagnosis Stable angina (HCC) Other and unspecified angina pectoris documented in this encounter Discontinued Medications Medication Sig Discontinue Reason Start Date End Da te RANEXA 1,000 mg Oral Tablet Sustained Release 12 hrIndications:Stable angina (HCC) TAKE ONE TABLET BY MOUTH EVERY 12 HOURS Reorder 08/30/2017 10/06/2017 documented as of this encounter Additional Health Concerns Assessment Noted Time A fall risk assessment has been complete d for the patient 04/21/2017 10:52 AM EST documented as of this encounter Care Teams Wind Turbine Mechanic Relationship Specialty Start Date End Date Sharee Segovia APRN [address] [place] [phone] PCP - General Nurse Practitioner-Family 09/21/16 documented as of this encounter
--- OUTSIDE RECORDS SUMMARY | 2024-02-16 14:52 | XMS_ITS | Encounter Summary ---
Author Organization [place] [address] Care Team Providers Care Director Trial Name Role Phone Sharee Segovia APRN Primary Care Provider [phone] Reason for Visit * Reason Comments Follow-up 3 m ck (Meds per [facility]) Congestive Heart Failure Coronary Artery Disease Hypertension Encounter Details Date Type Department Care Team (Latest Contact Info) Description 10/25/2017 1:15 PM EDT Office Visit [facility] [place] [facility] [address] [place] [address] Bello Devries MD [address] [place] [address] NSTEMI (non-ST elevated myocardial infarction) (HCC) (Primary Dx); ASHD (arteriosclerotic heart disease); Essential hypertension; Chronic diastolic CHF (congestive heart failure) (HCC); Hyperlipidemia, unspecified hyperlipidemia type Social History Tobacco Use Types Packs/Day [...] Sign Reading Time Taken Comments Blood Pressure 101/61 10/25/2017 1:19 PM EDT Pulse 44 10/25/2017 1:19 PM EDT Temperature - - Respiratory Rate - - Oxygen Saturation - - Inhaled Oxygen Concentration - - Weight 106.6 kg (235 lb) 10/25/2017 1:19 PM EDT Height 174 cm (5' 8.5 ) 10/25/2017 1:19 PM EDT Body Mass Index 35.21 10/25/2017 1:19 PM EDT documented in this encounter Functional Status * Is the person deaf or does he/she have serious difficulty hearing? Answer Date of Assessment Author No 08/09/2017 9:08 AM EDT Birdie Kyle RMA * Is the person blind or does he/she have serious difficulty seeing even when wearing glasses? Answer Date of Assessment Author No 08/09/2017 9:08 AM EDBirdie Lynn RMA * Does this person have serious difficulty walking or climbing stairs? Answer Date of Assessment Author Yes 08/09/2017 9:08 AM Birdie Wilkinson RMA * Does this person have difficulty dressing or bathing? Answer Date of Assessment Author No 08/09/2017 9:08 AM Birdie Wilkinson RMRonaldo * Because of a physical, mental [...] Author Yes 08/09/2017 9:08 AM Birdie Wilkinson RMRonaldo documented in this encounter Progress Notes * Bello Devries MD - 10/25/2017 1:15 PM EDT Subjective: Patient ID: Faby Palm is a 67 y.o. female. Chief Complaint Patient presents with ??? Follow-up 3 m ck (Meds per [facility]) ??? Congestive Heart Failure ??? Coronary Artery Disease ??? Hypertension Ms. Palm is here for a scheduled routine follow-up visit HPI None Their chronic cardiac conditions are: Problem List Cardiology Problems Essential hypertension bp at home up off and on ASHD (arteriosclerotic heart disease) No chest, shoulder, arm, back, or jaw pain. Chest pain at rest Chronic diastolic CHF (congestive heart failure) ([facility]) LUONG STABLE S/P ablation of atrial flutter Chest pain NSTEMI (non-ST elevated myocardial infarction) ([facility]) History Smoking Status ??? Never Smoker Smokeless Tobacco ??? Never Used Current Outpatient Prescriptions Medication Sig Dispense Refill ??? acetaminophen 325 mg Oral Tab Take 650 mg by mouth every 4 hours as needed for Pain. Pt takes 1to 2 tabs as needed ??? dzgms-R-fpvsvomroknls (ANTI-GAS ORAL) Take by mouth 3 times [...] fUROsemide (LASIX) 20 mg Oral Tablet Take 1 Tab by mouth daily. 30 Tab 0 ??? glipiZIDE (GLUCOTROL) 10 mg Oral Tablet [...] needed. HM ANTACID -ANTIGAS FILEMON 20 ML ??? metoprolol (LOPRESSOR) 25 mg Oral Tablet Take 1 Tab by mouth 2 times daily. 60 Tab 2 No current facility-administered medications for this visit. Patients past medical, family and social histories were reviewed and updated. There were no changesexcept as noted. Review of Systems Constitution: Negative for weight gain and weight loss. HENT: Negative for nosebleeds. Eyes: Negative. Cardiovascular: Positive for dyspnea on exertion and leg swelling. Negative for chest pain and palpitations. Respiratory: Negative for shortness of breath. Endocrine: Negative for cold intolerance. Skin: Negative for color change. Musculoskeletal: Negative for joint pain. Gastrointestinal: Negative for nausea. Genitourinary: Negative for nocturia. Neurological: Negative for light-headedness. Psychiatric/Behavioral: Negative for substance abuse. Objective: Patient Vitals for the past 24 hrs: Pulse BP BP Location Patient Position 10/25/17 1319 (!) 44 101/61 Right arm Sitting Body mass index is 35.21 kg/m??. Physical Exam Constitutional: She appears healthy. [...] Skin is warm. No pallor. Relevant Studies Cardiac Cath Abnormal 50% lad FFR .82 rca FFR .92 No results found for this visit on 10/25/17. Lab Review Lab Results Component Value Date WBC 7.0 10/09/2017 HGB 12.7 10/09/2017 PLT 178 10/09/2017 Lab Results Component Value Date NA 141 10/09/2017 K 4.2 10/09/2017 GLU 140 (H) 10/09/2017 ALT 10 10/09/2017 ALKPHOS 132 (H) 10/09/2017 Lab Results Component Value Date TSH 2.760 09/21/2017 Lab Results Component Value Date CHOLESTEROL 110 09/21/2017 HDL 36 (L) 09/21/2017 LDLCALC 35 09/21/2017 TRIG 195 (H) 09/21/2017 Lab Results Component Value Date INR 1.22 (H) 09/21/2017 Assessment and Plan: Faby was seen today for follow-up, congestive heart failure, coronary artery disease and hypertension. Diagnoses and all orders for this visit: NSTEMI (non-ST elevated myocardial infarction) ([facility]) ASHD (arteriosclerotic heart disease) Essential hypertension Chronic diastolic CHF (congestive heart failure) ([facility]) NSTEMI [facility] 5--18 ?? Ost RCA lesion 60% stenosed. ?? Mid RCA lesion 40% stenosed. ?? Mid LAD lesion 50% stenosed. ??Significant but not clearly flow limiting dz Ostial RCA of 50-70% - difficult to image due to angulation with FFR of 0.92 Mid LAD appearing 50% with FFR of 0.82 Normal LVEDP -->??DAPT w ??Plavix/ASA ? CAD - Card cath (10/2016): 50-60% mid LAD, 50% ost RCA, pEF - managed medically - Nonischemic stress (04/2017) - continue Imdur, Ranexa ? Bradycardia Hx Atrial Flutter - S/p AF ablation (2015) -remains SR-SB on tele No AC ?? Hypertension -continue amlodipine ?? Dyslipidemia -continue statin ?? DM -per primary ??care? H/o CVA - Residual left hemiparesis -pt feels more weak all over today and trouble just trying to get up in bed -ASA, statin Bradycardia today- check ecg DC metoprolol Frustrated with lasix- has noted no edema improvement- will dc lasix Could DC amlodipine if hypertension tolerates DC of metoprolol. ??labs in 6 months documented in this encounter Miscellaneous Notes * Patient Instructions - Steph Ontiveros RMA - 10/25/2017 1:15 PM EDT Stop taking the Metoprolol. Stop taking the Furosemide. BLOOD WORK INSTRUCTIONS Blood work needs to be completed one week prior to your six month follow up. Nothing to eat or drink for 10 to 12 hours the night prior to blood draw. May drink water prior to draw. documented in this encounter Plan of Treatment Scheduled Orders Name Type Priority Associated Diagnoses Orde r Schedule CBC Lab Routine NSTEMI (non-ST elevated myocardial infarction) (HCC) ASHD (arteriosclerotic heart disease) Essential hypertension Chronic diastolic CHF (congestive heart failure) (HCC) Hyperlipidemia, unspecified hyperlipidemia type 1 Occurrences starting 10/25/2017 until 10/25/2018 BASIC METABOLIC PANEL Lab Routine NSTEMI (non-ST elevated myocardial infarction) (HCC) ASHD (arteriosclerotic heart disease) Essential hypertension Chronic diastolic CHF (congestive heart failure) (HCC) Hyperlipidemia, unspecified hyperlipidemia type 1 Occurrences starting 10/25/2017 until 10/25/2018 HEPATIC FUNCTION PANEL Lab Routine NSTEMI (non-ST elevated myocardial infarction) (HCC) ASHD (arteriosclerotic heart disease) Essential hypertension Chronic diastolic CHF (congestive heart failure) (HCC) Hyperlipidemia, unspecified hyperlipidemia type 1 Occurrences starting 10/25/2017 until 10/25/2018 LIPID PANEL REFLEX Lab Routine NSTEMI (non-ST elevated myocardial infarction) (HCC) ASHD (arteriosclerotic heart disease) Essential hypertension Chronic diastolic CHF (congestive heart failure) (HCC) Hyperlipidemia, unspecified hyperlipidemia type 1 Occurrences starting 10/25/2017 until 10/25/2018 documented as of this encounter Goals Goal [...] Procedure Name Priority Date/Time Associated Diagnosis Comments POCT EKG Routine 10/25/2017 1:58 PM EDT NSTEMI (non-ST elevated myocardial infarction) (HCC) ASHD (arteriosclerotic heart disease) Essential hypertension Chronic diastolic CHF (congestive heart failure) (HCC) Hyperlipidemia, unspecified hyperlipidemia type documented in this encounter Results * POCT EKG (10/25/2017 1:58 PM EDT) 10/25/2017 1:58 PM EDT Bello Devries MD POINT OF CARE CARDIOLOGY Final Result SEP OFFICE documented in this encounter Visit Diagnoses Diagnosis NSTEMI (non-ST elevated myocardial infarction) ([facility])- Primary Acute myocardial infarction, subendocardial infarction, episode of care unspecified ASHD (arteriosclerotic heart disease) Coronary atherosclerosis of unspecified type of vessel, [place] ira or graft Essential hypertension Unspecified essential hypertension Chronic diastolic CHF (congestive heart failure) ([facility]) Hyperlipidemia, unspecified hyperlipidemia type documented in this encounter Discontinued Medications Medication Sig Discontinue Reason Start Date End Da te hydrocortisone 1 % Top Cream Apply 1 % topically 2 times daily. DELETE-Therapy completed 10/25/2017 FIBER CHOICE ORAL Take 325 mg by mouth 2 times daily. DELETE-Therapy completed 10/25/2017 inulin (FIBER CHOICE, INULIN,) 1.5 gram Oral Tablet, Chewable Take by mouth 2 times daily. DELETE-Therapy completed 10/25/2017 loratadine (CLARITIN) 10 mg Oral Tablet Take 10 mg by mouth daily. DELETE-Therapy completed 10/25/2017 fUROsemide (LASIX) 20 mg Oral Tablet Take 1 Tab by mouth daily. DELETE- Stopped by provider 05/12/2017 10/25/2017 metoprolol (LOPRESSOR) 25 mg Oral Tablet Take 1 Tab by mouth 2 times daily. DELETE- Stopped by provider 09/22/2017 10/25/2017 documented as of this encounter Historical Medications * This list may reflect changes made after this encounter. lamoTRIgine (LAMICTAL) 100 mg Oral TabletIndications:N STEMI (non-ST elevated myocardial infarction) (HCC),ASHD (arteriosclerotic heart disease),Essential hypertension,Chroni c diastolic CHF (congestive heart failure) ([facility]),Hyperlipidemi a, unspecified hyperlipidemia type Take 50 mg by mouth daily bowstring maker. And Takes 100 mg at night glipiZIDE (GLUCOTROL) 10 mg Oral TabletIndications:N STEMI (non-ST elevated myocardial infarction) (HCC),ASHD (arteriosclerotic heart disease),Essential hypertension,Chroni c diastolic CHF (congestive heart failure) (HCC),Hyperlipidemi a, unspecified hyperlipidemia type Take 10 mg by mouth 2 times daily. UNABLE TO FINDIndications:NST JOVAN (non-ST elevated myocardial infarction) (HCC),ASHD (arteriosclerotic heart disease),Essential hypertension,Chroni c diastolic CHF (congestive heart failure) (HCC),Hyperlipidemi a, unspecified hyperlipidemia type 3 times daily as needed. HM ANTACID -ANTIGAS FILEMON 20 ML 04/25/19 19 UNABLE TO FINDIndications:NST JOVAN (non-ST elevated myocardial infarction) (HCC),ASHD (arteriosclerotic heart disease),Essential hypertension,Chroni c diastolic CHF (congestive heart failure) (HCC),Hyperlipidemi a, unspecified hyperlipidemia type as needed. HENTOLIN HFA 90 MCG 04/25/19 UNABLE TO FINDIndications:NST JOVAN (non-ST elevated myocardial infarction) (HCC),ASHD (arteriosclerotic heart disease),Essential hypertension,Chroni c diastolic CHF (congestive heart failure) (HCC),Hyperlipidemi a, unspecified hyperlipidemia type as needed. VALZACYCLOVIR HCL 1 GM 04/25/19 19 lisinopril (PRINIVIL;ZESTRIL) 20 mg Oral TabletIndications:N STEMI (non-ST elevated myocardial infarction) (HCC),ASHD (arteriosclerotic heart disease),Essential hypertension,Chroni c diastolic CHF (congestive heart failure) (HCC),Hyperlipidemi a, unspecified hyperlipidemia type Take 20 mg by mouth 2 times daily. 08/15/19 19 added in this encounter Additional Health Concerns Assessment Noted Time A fall risk assessment has been complete d for the patient 04/21/2017 10:52 AM EST documented as of this encounter Care Teams Director Trial Relationship Specialty Start Date End Date Sharee Segovia APRN [address] [place] [phone] PCP - General Nurse Practitioner-Family 09/21/16 documented as of this encounter
--- OUTSIDE RECORDS SUMMARY | 2024-02-16 14:52 | XMS_ITS | Encounter Summary ---
Author [place] [address] Care Team Providers Care Associate Curator Name Role Phone Sharee Segovia APRN Primary Care Provider [phone] Reason for Referral * Mammography (Routine) - Closed Specialty Diagnoses / Procedures Referred By Arsh patel Referred To Contact Radiology Diagnoses Encounter for screening mammogram for breast cancer Procedures MM MAMMO DIGITAL SCREENING W CAD BILAT Sharee Segovia APRN [address] [place] [address] Phone: tel: fax: Referral ID Status Reason Start Date Expiration Date Visits Re quested Visits Authorized [id number] Closed 04/19/2018 04/19/2020 1 1 * DEXA (Routine) - Closed Specialty Diagnoses / Procedures Referred By Arsh patel Referred To Contact Radiology Diagnoses Menopause Procedures DX BONE DENSITY AXIAL SKELETON Sharee Segovia APRN [address] [place] [address] Phone: tel: fax: Referral ID Status Reason Start Date Expiration Date Visits Re quested Visits Authorized [id number] Closed 04/19/2018 04/19/2019 1 1 Reason for Visit * Reason Comments Annual Exam has been fasting for bw Encounter Details Date Type Department Care Team (Late st Contact Info) Description 04/19/2018 8:20 AM EST Office Visit [facility] [address] 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); Iron deficiency anemia due to chronic blood loss; Screening for metabolic disorder; Screening for lipid disorders; Screening for thyroid disorder; Encounter for vitamin deficiency screening; Menopause; Type 2 diabetes mellitus without complication, unspecified whether jail insulin use (HCC); Hemiparesis affecting left side as late effect of stroke (HCC); Schizoaffective disorder, depressive type (HCC); Chronic diastolic CHF (congestive heart failure) (HCC); Encounter for screening mammogram for breast [...] Sign Reading Time Taken Comments Blood Pressure 138/84 04/19/2018 9:02 AM EST Pulse 64 04/19/2018 8:39 AM EST Temperature 36.9 ??C (98.5 ??F) 04/19/2018 8:39 AM ES T Respiratory Rate 18 04/19/2018 8:39 AM EST Oxygen Saturation 91% 04/19/2018 8:39 AM EST Inhaled Oxygen Concentration - - Weight 100.7 kg (222 lb) 04/19/2018 8:39 AM EST Height 172.7 cm (5' 8 ) 04/19/2018 8:39 AM EST Body Mass Index 33.75 04/19/2018 8:39 AM EST documented in this encounter Functional Status [...] Progress Notes * Sharee Segovia ARNP - 04/19/2018 8:20 AM EST Assessment Diagnoses and all orders for this visit: Annual physical exam Old LA (myocardial infarction) Comments: stress test 2018 normal-no ischemia Overview: -LA > 4 weeks old 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) (Chronic) - HEMOGLOBIN A1C; Future - MICROALBUMIN/CREATININE RATIO URINE; Future Iron deficiency anemia due to chronic blood loss - CBC WITH DIFF; Future Screening for metabolic disorder - COMPREHENSIVE METABOLIC PANEL; Future Screening for lipid disorders - LIPID SCREEN; Future Screening for thyroid disorder - T3 FREE; Future - T4, FREE (THYROXINE); Future - THYROID STIMULATING HORMONE; Future Encounter for vitamin deficiency screening Menopause - DX BONE DENSITY AXIAL SKELETON; Future Type 2 diabetes mellitus without complication, unspecified whether oysterman insulin use (HCC) (Chronic) Comments: check Aic. FSBS stable Orders: - IRIS DIABETIC RETINOPATHY EXAM Hemiparesis affecting left side as late effect of stroke (HCC) (Chronic) Schizoaffective disorder, depressive type (HCC) (Chronic) Comments: managed by psychiatry at [facility] Chronic diastolic CHF (congestive heart failure) (HCC) (Chronic) Encounter for screening mammogram for breast cancer Comments: refuses to get mammogram Orders: - MM MAMMO DIGITAL SCREENING W CAD BILAT; Future Progress Note: Vitals: 04/19/18 0839 04/19/18 0902 BP: 148/82 138/84 Pulse: 64 Resp: 18 Temp: 98.5 ??F (36.9 ??C) TempSrc: Temporal SpO2: 91% Weight: 222 lb (100.7 kg) Height: 5' 8 (1.727 m) Chief Complaint Patient presents with ??? Annual Exam has been fasting for bw Recent admission to [facility]. Admitted with suicidal ideation. States she threatened to drink Drano. Denies any current suicidal thoughts. She was having problems with her boyfriend. Things are better with him. They are working on problems. She goes to counseling at [facility]. She was seen by Adult protective services. She lives at a Living center. She has had several recent falls. She uses a walker but states she trips over things. She also thinks she loses her balance. The [facility] has concerns that she should be in a usp with more assistance if falls continue. HPI: Medicare Wellness Assessment Flowsheet Version: Ms. Palm is a 67 y.o. female here for an Subsequent Annual Medicare Wellness Assessment. Below are the results from wellness category assessments administered throughout the year compiled for review as part of today's assessment. Fall Risk Assessment Has the patient had any fall with injury in the past year?: Yes Has the patient had 2 or more falls in the past year?: Yes Is the patient able to sit without assistance?: Yes Is the patient able to get up without assistance?: Yes Does the patient have a difficult time ambulating when first getting up?: Yes Does the patient have rugs or runners in the home?: No Does the patient have grab bars in the bathroom?: Yes Does the patient have handrails for all inside or outside stairs?: Yes (In office Assessment Only): Is the patient able to ambulate without assistance/device and with a gait steady?: No (In office Assessment Only): Is the patient able to get out of the exam chair and ambulate steadilyin less than 30 second?: No Functional Status Assessment Functional Level: partial assistance Functional Mobility Assessment: mobile with cane/walker Assessment of transportation needs: dependent on other/public transportation Functional Activities of Daily Living Limitations: ambulation;bathing/hygiene;preparing meals;managing money Activities of Daily Living Assistive Device Assessment Assistive Devices: Walker Home O2 Device: Room Air Osteoporosis Screening Assessment Has the patient had a DEXA scan in the past 2 years?: No Abnormal Pains Assessment Excluding what you would consider normal aches and pains for your age and medical condition, do youhave any unusual or worrisome pains?: No PHQ Depression Screening Results Little interest or pleasure in doing things: 3 Feeling down, depressed, or hopeless: 3 PHQ-2 Total Score: 6 Trouble falling or staying asleep, or sleeping [...] in some way: 1 PHQ-9 Total Score: 13 If you checked off any problems, how difficult have these problems made it for you to do your work,take care of things at home, or get along with other people?: Somewhat difficult Advanced Directive Evaluation Does the patient have an Advanced Directive?: No Advance Care Planning Guide Given?: Yes (For Dementia Screening below can use either AD-8 or Mini Cog. Doesn't require both.) AD-8 Dementia Screening tool results Problems with judgement: 0 Less interest in hobbies/activities: 0 Repeats the same things over and over: 0 Trouble learning how to use a tool, appliance or gadget: 0 Forgets correct month or year: 0 Trouble handling complicated financial affairs: 1 Trouble remembering appointments: 0 Daily problems with thinking and/or memory: 0 Total AD8 score:: 1 Mini Cog Dementia Screening tool results Number of words immediately repeated back correctly.: 2 Clock Test: Please draw a clock face and draw in hands to show 10 minutes past eleven o'clock.: correct number placement, 1 pt Number of Words Recalled: 2 Dementia: Negative No exam data present Results for orders placed or performed in visit on 04/19/18 HEMOGLOBIN A1C Result Value Ref Range Hgb A1C 6.6 (H) 4.2 - 5.6 % Est. Avg Glucose 143 mg/dL Narrative REFERENCE RANGE: Normal: 4.0-5.6% Pre-diabetes: 5.7-6.4% Provisional diagnosis of diabetes: >6.4% Hgb F>10% and anything which shortens red cell survival, such as hemolytic anemia, or unstable hemoglobin variants such as HbSS, HbSC, or HbCC, will lower the HbA1c value associated with a given level of glycemic control. CBC WITH DIFF Result Value Ref Range WBC 6.9 3.7 - 10.3 x10(3)/mcL RBC 3.99 3.90 - 5.20 x10(6)/mcL Hgb 12.0 11.2 - 15.7 g/dL Hct 38.6 34.0 - 45.0 % MCV 96.7 79.0 - 98.0 fL MCH 30.1 26.0 - 32.0 pg MCHC 31.1 30.7 - 35.5 g/dL RDW 14.6 <=14.9 % Platelet 170 155 - 369 x10(3)/mcL MPV 12.3 8.8 - 12.5 fL Neut Percent 65.1 % Imm Gran% 0.7 % Lymph Percent 25.1 % [place] Percent 5.8 % Eos Percent 2.9 % Baso Percent 0.4 % Neut # 4.5 1.6 - 6.1 x10(3)/mcL IMMGRAN# 0.1 0.0 - 0.1 x10(3)/mcL Lymph # 1.7 1.2 - 3.9 x10(3)/mcL Mifflin # 0.4 0.3 - 0.9 x10(3)/mcL Eos# 0.2 0.0 - 0.5 x10(3)/mcL Baso # 0.0 0.0 - 0.1 x10(3)/mcL COMPREHENSIVE METABOLIC PANEL Result Value Ref Range Sodium 144 136 - 145 mmol/L Potassium 4.4 3.5 - 5.0 mmol/L Chloride 106 98 - 107 mmol/L Total CO2 28 22 - 29 mmol/L Anion Gap 10 7 - 16 mmol/L Calcium 9.3 8.8 - 10.2 mg/dL Glucose Lvl 116 (H) 82 - 100 mg/dL BUN 19 8 - 23 mg/dL Creatinine 1.33 (H) 0.51 - 1.30 mg/dL Albumin 4.0 3.2 - 4.6 gm/dL Total Protein 7.1 6.4 - 8.3 gm/dL Bili Total 0.4 0.1 - 1.3 mg/dL ALT 8 <=41 IU/L AST 8 <=40 IU/L Alk Phos 172 (H) 35 - 104 IU/L GFR Afr Am 48 (L) >=60 mL/min/1.73 m2 GFR Non Afr Am 42 (L) >=60 mL/min/1.73 m2 LIPID SCREEN Result Value Ref Range Cholesterol 116 <=200 mg/dL Triglyceride 124 <=150 mg/dL HDL 51 >=40 mg/dL LDL Calculated 40 <=100 mg/dL Non-HDL-C Calculated 65 <=129 mg/dL Fasting Specimen? Yes None T3 FREE Result Value Ref Range T3 Free 2.34 2.00 - 4.40 pg/mL Narrative Ingestion of charles doses of biotin (>5 mg/day) taken within 8 hours of drawing blood sample can interfere with this immunoassay test. T4, FREE (THYROXINE) Result Value Ref Range Free T4 0.91 0.80 - 2.00 ng/dL Narrative Ingestion of charles doses of biotin (>5 mg/day) taken within 8 hours of drawing blood sample can interfere with this immunoassay test. THYROID STIMULATING HORMONE Result Value Ref Range TSH 2.130 0.270 - 4.200 mcIU/mL Narrative Ingestion of charles doses of biotin (>5 mg/day) taken within 8 hours of drawing blood sample can interfere with this immunoassay test. IRIS DIABETIC RETINOPATHY EXAM Result Value Ref Range Retinopathy Exam Severity NORMAL Right Diabetic Retinopathy None Right Macular Edema None Right Other Retina None Right Eye Image Quality Gradable Image Left Diabetic Retinopathy None Left Macular Edema None Left Other Retina None Left Eye Image Quality Gradable Image Impression Retinal Study Result for FABY PALM DEBORAH, a 67 y/o, F (: 1950, ) presented to [facility] on 04-19-2018 for a retinal imaging study of the left and right eyes. Based on the findings of the study, the following is recommended for FABY PALM Normal Study: Return for follow up exam in 12 months or next calendar year. Interpreting Provider's Comments: No comments provided Diagnoses Present: E11.9 - Type 2 diabetes mellitus without complications Right Eye Findings: Normal Result. Negative for Diabetic Retinopathy. Left Eye Findings: Normal Result. Negative for Diabetic Retinopathy. This result was electronically signed by Darrel Parker MD, , Taxonomy: [id number] 04-20-2018 12:55:08 [facility] time. NOTE: Any pathology noted on this diabetic retinal evaluation should be confirmed by an appropriateophthalmic examination. Patient Active Problem List Diagnosis ??? History of CVA with residual deficit ??? Essential hypertension ??? Gastrointestinal hemorrhage associated with gastroduodenitis ??? Hemiparesis affecting left side as late effect of stroke ([facility]) ??? ELIU (iron deficiency anemia) ??? Chest pain at rest ??? ASHD (arteriosclerotic heart disease) ??? Chronic diastolic CHF (congestive heart failure) ([facility]) ??? S/P ablation of atrial flutter ??? Well controlled type 2 diabetes mellitus with peripheral neuropathy ([facility]) ??? Mood disorder (HCC) ??? Recurrent major depressive disorder, in partial remission (HCC) ??? Schizoaffective disorder, depressive type ([facility]) ??? Intellectual disability ??? Chest pain ??? Positive occult stool blood test ??? Mammogram declined ??? Old LA (myocardial infarction) Past Medical History: Diagnosis Date ??? Atrial flutter (HCC) EPS, AFL Ablation on 12/31/[address] Tee ??? CHF (congestive heart failure) ([facility]) ??? COPD (chronic obstructive pulmonary disease) (HCC) ??? DDD (degenerative disc disease) ??? Diabetes mellitus (HCC) ??? Hypertension ??? Intellectual disability 05/03/2017 ??? LA (myocardial infarction) ([facility]) ??? RLS (restless legs syndrome) ??? Schizoaffective disorder, depressive type ([facility]) 02/19/2017 ??? Stroke ([facility]) 2010 left side affected ??? Suicide [...] Brown MD; Location: [facility]; Service: Endoscopy Allergies Allergen Reactions ??? Compazine [Prochlorperazine Edisylate] ??? [place] [facility] ??? Pentazocine Hcl ??? Prochlorperazine Maleate ??? Talwin [Pentazocine Lactate] Current Outpatient Prescriptions on File Prior to Visit Medication Sig Dispense Refill ??? acetaminophen 325 mg Oral Tab Take 650 mg by mouth every 4 hours as needed for Pain. Pt takes 1to 2 tabs as needed ??? amLODIPine (NORVASC) 2.5 mg Oral Tablet [...] times daily (before meals and nightly). ??? [id number]-H-zlrgjgegbldjl (ANTI-GAS ORAL) Take by mouth 3 times daily as needed. ??? lamoTRIgine (LAMICTAL) 25 mg Oral Tablet Take 1 Tab by mouth 2 times daily. (Patient not taking: Reported on 03/30/2018) 60 Tab 0 ??? pantoprazole (PROTONIX) 40 mg Oral Tablet, Delayed Release (E.C.) Take 40 mg by mouth. 2 tabs at bedtime ??? risperiDONE (RISPERDAL) 0.5 mg Oral Tablet Take 0.5 mg by mouth nightly. ??? Saccharomyces boulardii (FLORASTOR) 250 mg Oral Capsule Take 250 mg by mouth 2 times daily. ??? traZODone (DESYREL) 50 mg Oral Tablet Take 1 Tab by mouth nightly. (Patient not taking: Reported on 03/30/2018) 30 Tab 2 ??? UNABLE TO FIND as needed. VALZACYCLOVIR HCL 1 GM ??? UNABLE TO FIND as needed. HENTOLIN HFA 90 MCG ??? UNABLE TO FIND 3 times daily as needed. HM ANTACID -ANTIGAS FILEMON 20 ML No current facility-administered medications on file prior to visit. Social History Social History ??? Marital status: [...] 07/26/2017 Health Maintenance Topic Date Due ??? Microalbuminuria 07/13/1961 ??? Zoster (1 of 2) 07/13/2001 ??? Bone Density Screening 07/13/2016 ??? Annual Wellness Exam 09/21/2017 ??? Hepatitis B Vaccine (1 of 3 - Risk 3-dose series) 06/04/2018 (Originally 07/13/1970) ??? Colon Cancer Screening: Occult Blood 08/11/2018 ??? Hemoglobin A1c 10/17/2018 ??? Lipids 04/19/2019 ??? Fall Risk Assessment 04/19/2019 ??? Diabetic Eye Exam 04/19/2020 ??? Influenza Vaccine Completed ??? Pneumococcal Vaccine (Low/Medium risk) 65+ Completed ??? Hepatitis C Screening Completed Health Maintenance Due Topic Date Due ??? Microalbuminuria 07/13/1961 ??? Zoster (1 of 2) 07/13/2001 ??? Bone Density Screening 07/13/2016 ??? Annual Wellness Exam 09/21/2017 Patient Care [...] practice. === Additional issues addressed today: Diabetes: is checking blood sugar at least once a day. Having good readings. [facility]. Not getting any exercise. Mood: stable recently since last admission. Pt signed to get records from [place]. Unsure if any changes were done in meds. Review of Systems Constitutional: Positive for fatigue. Negative for fever. HENT: Negative for congestion and sore throat. Respiratory: Positive for chest tightness (intermittent sharp pain no pressure. NM test in 2018 negative for ischemia) and shortness of breath (with exertion). Cardiovascular: Negative for chest pain and palpitations. Gastrointestinal: Negative for abdominal pain, nausea and vomiting. Neurological: Negative for dizziness and headaches. Psychiatric/Behavioral: Stable, on suicide watch at [facility] Physical Exam Constitutional: She is oriented to person, place, and time. She appears well- developed and well-nourished. HENT: Head: Normocephalic. Eyes: Pupils are equal, round, and reactive to light. Conjunctivae are normal. Neck: Normal range of motion. Neck supple. No JVD present. No thyromegaly present. Cardiovascular: Normal rate and regular rhythm. Pulmonary/Chest: Effort normal and breath sounds normal. Abdominal: Soft. Bowel sounds are normal. Musculoskeletal: She exhibits no edema. Mild left sided hand and arm weakness Lymphadenopathy: She has no cervical adenopathy. Neurological: She is alert and oriented to person, place, and time. Skin: Skin is warm and dry. Psychiatric: She has a normal mood and affect. Patient Active Problem List Diagnosis ??? History [...] blood test ??? Mammogram declined ??? Old LA (myocardial infarction) Past Medical History: Diagnosis Date ??? Atrial flutter (HCC) EPS, AFL Ablation on 12/31/[address] Tee ??? CHF (congestive heart failure) (HCC) ??? COPD (chronic obstructive pulmonary disease) (HCC) ??? DDD (degenerative disc disease) ??? Diabetes mellitus (HCC) ??? Hypertension ??? Intellectual disability 05/03/2017 ??? LA (myocardial infarction) (HCC) ??? RLS (restless legs [...] Brown MD; Location: [facility]; Service: Endoscopy Social History Social History [...] Allergen Reactions ??? Compazine [Prochlorperazine Edisylate] ??? [place] ??? Pentazocine Hcl ??? Prochlorperazine Maleate ??? Maria Teresa [Pentazocine Lactate] Outpatient Encounter Prescriptions as of 04/19/2018 Medication Sig Dispense Refill ??? acetaminophen 325 mg Oral Tab Take 650 mg by mouth every 4 hours as needed for Pain. Pt takes 1to 2 tabs as needed ??? amLODIPine (NORVASC) 2.5 mg Oral Tablet [...] times daily (before meals and nightly). ??? qvqsg-M-lukjwqxcmoxrh (ANTI-GAS ORAL) Take by mouth 3 times daily as needed. ??? lamoTRIgine (LAMICTAL) 25 mg Oral Tablet Take 1 Tab by mouth 2 times daily. (Patient not taking: Reported on 03/30/2018) 60 Tab 0 ??? pantoprazole (PROTONIX) 40 mg Oral Tablet, Delayed Release (E.C.) Take 40 mg by mouth. 2 tabs at bedtime ??? risperiDONE (RISPERDAL) 0.5 mg Oral Tablet Take 0.5 mg by mouth nightly. ??? Saccharomyces boulardii (FLORASTOR) 250 mg Oral Capsule Take 250 mg by mouth 2 times daily. ??? traZODone (DESYREL) 50 mg Oral Tablet Take 1 Tab by mouth nightly. (Patient not taking: Reported on 03/30/2018) 30 Tab 2 ??? UNABLE TO FIND as needed. VALZACYCLOVIR HCL 1 GM ??? UNABLE TO FIND as needed. HENTOLIN HFA 90 MCG ??? UNABLE TO FIND 3 times daily as needed. HM ANTACID -ANTIGAS FILEMON 20 ML No facility-administered encounter medications on file as of 04/19/2018. See time date stamps in the EMR for other pertient history components reviewed as part of today's encounter. [facility] Documentation Medication Compliance: Compliant most of the time Understanding of Current Medications: Fair Medication Compliance Barriers: None or N/A Self-Management Tools: Home glucometer Self-Management Ability: Fair Willingness to Adopt Healthy Behaviors: Fair Potential Barriers to completing treatment plans today: No significant barriers [facility] Flowsheet was completed/reviewed as part of today's visit. Educated patient regarding the diagnosis, medication/treatment, goals, self- management tools and instructions based on their care plan. They verbalized understanding of the education given on the After Visit Summary [AVS] for today's visit. A copy of the AVS was provided either in writing and/or via [employer]. A new medicine was prescribed during this [...] inquired of any questions and answered accordingly. * Deena Schmidt CCMA - 04/19/2018 8:20 AM EST IDeena CCMA, administered the Iris diabetic retinopathy screening without difficulty. Initial evaluation involved looking at patient eyes to confirm that eyes do not appear red, angry, and/or the cornea appears hazy. Patient was able to adequately dilate pupils naturally for adequate images to be obtained. No dilation drops were necessary. 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) 1 Occurrences starting 04/19/2018 until 04/19/2019 DX BONE DENSITY AXIAL SKELETON Imaging Routine Menopause 1 Occurrences starting 04/19/2018 until 04/19/2019 documented as of this encounter Goals Goal [...] Procedure Name Priority Date/Time Associated Diagnosis Comments CBC WITH DIFF Routine 04/19/2018 9:49 AM EST Iron deficiency anemia due to chronic blood loss T3 FREE Routine 04/19/2018 9:49 AM EST Screening for thyroid disorder THYROID STIMULATING HORMONE Routine 04/19/2018 9:49 AM EST Screening for thyroid disorder T4, FREE (THYROXINE) Routine 04/19/2018 9:49 AM EST Screening for thyroid disorder HEMOGLOBIN A1C Routine 04/19/2018 9:49 AM EST 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) LIPID SCREEN Routine 04/19/2018 9:49 AM EST Screening for lipid disorders COMPREHENSIVE METABOLIC PANEL Routine 04/19/2018 9:49 AM EST Screening for metabolic disorder IRIS DIABETIC RETINOPATHY EXAM Routine 04/19/2018 9:31 AM EST Type 2 diabetes mellitus without complication, unspecified whether jail insulin use (HCC) documented in this encounter Results * MM MAMMO DIGITAL SCREENING W CAD BILAT (07/25/2018 3:22 PM EDT) Anatomical Region Laterality Modality Breast Bilateral Mammography 07/25/2018 4:07 PM EDT Impressions 07/25/2018 4:07 PM EDT Negative ??([id number]) ~ RECOMMENDATION: Routine screening mammogram in 1 [...] for screening mammogram for malignant neoplasm of [id number] ~ MM MAMMO DIG SCREEN CAD BILAT [...] for screening mammogram for malignant neoplasm of [id number] ~ MM MAMMO DIG SCREEN CAD BILAT Bilateral CC and MLO view(s) were taken. There are scattered fibroglandular densities. Prior study comparison: No prior studies available for comparison. No mammographic evidence of malignancy. No suspicious calcifications. ~ IMPRESSION: Negative ([id number]) ~ RECOMMENDATION: Routine screening mammogram in 1 [...] APRN IMG MAMMOGRAPHY ORDERABLE S Final Result * THYROID STIMULATING HORMONE (04/19/2018 9:49 AM EST) TSH 2.130 0.270 - 4.200 mcIU/mL 04/19/2018 4:24 PM EST [employer] Blood VENOUS BLOOD / Unknown Venipuncture / Unknown 04/19/2018 9:49 AM EST 04/19/2018 9:49 AM EST Narrative PREFERRED [employer] - 04/19/2018 4:24 PM EST Ingestion of charles doses of biotin (>5 mg/day) taken within 8 hours of drawing blood sample can interfere with this immunoassay test. Sharee Segovia APRN CHEMISTRY ORDERABLES Mildred l Result [employer] [address] [facility] , [place] [address] * T4, FREE (THYROXINE) (04/19/2018 9:49 AM EST) Free T4 0.91 0.80 - 2.00 ng/dL 04/19/2018 4:24 PM EST [employer] Blood VENOUS BLOOD / Unknown Venipuncture / Unknown 04/19/2018 9:49 AM EST 04/19/2018 9:49 AM EST Narrative [employer] - 04/19/2018 4:24 PM EST Ingestion of charles doses of biotin (>5 mg/day) taken within 8 hours of drawing blood sample can interfere with this immunoassay test. Sharee Guoing MANAGER CULTURE CHEMISTRY ORDERABLES Mildred l Result Performing Organization Address [facility] de Phone Number [employer] [address] [place] [address] , [place] [address] * T3 FREE (04/19/2018 9:49 AM EST) T3 Free 2.34 2.00 - 4.40 pg/mL 04/19/2018 4:24 PM EST [employer] Blood VENOUS BLOOD / Unknown Venipuncture / Unknown 04/19/2018 9:49 AM EST 04/19/2018 9:49 AM EST Narrative [employer] - 04/19/2018 4:24 PM EST Ingestion of charles doses of biotin (>5 mg/day) taken within 8 hours of drawing blood sample can interfere with this immunoassay test. Sharee Juliette ODONNELLN CHEMISTRY ORDERABLES Mildred l Result Performing Organization Address [facility] Phone Number [employer] [address] [place] [address] , [place] [id number] * LIPID SCREEN (04/19/2018 9:49 AM EST) Cholesterol 116 <=200 mg/dL 04/19/2018 4:24 PM EST [employer] Comment: < 200 ?Desirable 200 - 239 ? Borderline High >= 240 ?High Triglyceride 124 <=150 mg/dL 04/19/2018 4:24 PM EST [employer] Comment: < 150 ? Normal 150 - 199 ?Borderline High 200 - 499 ?High ??>= 500 ? Very High HDL 51 >=40 mg/dL 04/19/2018 4:24 PM EST [facility] Comment: ??> 60 ?Optimal 40 - 60 ?Acceptable ?? < 40 ?Low LDL Calculated 40 <=100 mg/dL 04/19/2018 4:24 PM EST [facility] Comment: < 100 ?Optimal 100 - 129 ? Near or above optimal 130 - 159 ? Borderline High 160 - 189 ? High >= 190 ?Very High Non-HDL-C Calculated 65 <=129 mg/dL 04/19/2018 4:24 PM EST [facility] Comment: <130 ?Desirable 130-159 Above Desirable 160-189 Borderline High 190-219 High >= 220 ??Very High Fasting Specimen? Yes None 019 4:24 PM EST [facility] Blood VENOUS BLOOD / Unknown Venipuncture / Unknown 04/19/2018 9:49 AM EST 04/19/2018 9:49 AM EST Sharee Segovia MANAGER CULTURE CHEMISTRY ORDERABLES Mildred pike Result [facility] [address] [facility] , [place] [address] * (ABNORMAL) COMPREHENSIVE METABOLIC PANEL (04/19/2018 9:49 AM EST) Sodium 144 136 - 145 mmol/L 04/19/2018 4:24 PM EST [facility] Potassium 4.4 3.5 - 5.0 mmol/L 04/19/2018 4:24 PM EST [facility] Chloride 106 98 - 107 mmol/L 04/19/2018 4:24 PM EST [facility] Total CO2 28 22 - 29 mmol/L 04/19/2018 4:24 PM EST [facility] Anion Gap 10 7 - 16 mmol/L 04/19/2018 4:24 PM EST [facility] Calcium 9.3 8.8 - 10.2 mg/dL 04/19/2018 4:24 PM EST [facility] Glucose Lvl 116(H) 82 - 100 mg/dL 04/19/2018 4:24 PM EST [facility] BUN 19 8 - 23 mg/dL 04/19/2018 4:24 PM EST [facility] Creatinine 1.33(H) 0.51 - 1.30 mg/dL 04/19/2018 4:24 PM EST [facility] Albumin 4.0 3.2 - 4.6 gm/dL 04/19/2018 4:24 PM EST [facility] Total Protein 7.1 6.4 - 8.3 gm/dL 04/19/2018 4:24 PM EST [facility] Bili Total 0.4 0.1 - 1.3 mg/dL 04/19/2018 4:24 PM EST [facility] ALT 8 <=41 IU/L 04/19/2018 4:24 PM EST [facility] AST 8 <=40 IU/L 04/19/2018 4:24 PM EST [facility] Alk Phos 172(H) 35 - 104 IU/L 04/19/2018 4:24 PM EST [facility] GFR Afr Am 48(L) >=60 mL/min/1.7 3 m2 04/19/2018 4:24 PM EST [facility] GFR Non Afr Am 42(L) >=60 mL/min/1.7 3 m2 04/19/2018 4:24 PM EST [facility] Comment: This estimated GFR was [...] EST 04/19/2018 9:49 AM EST Sharee Segovia MANAGER CULTURE CHEMISTRY ORDERABLES Mildred pike Result [facility] [address] [address], [place] [address] [facility] [address] [place] [address] * CBC WITH DIFF (04/19/2018 9:49 AM EST) WBC 6.9 3.7 - 10.3 x10(3)/mcL 04/19/2018 3:39 PM EST [facility] RBC 3.99 3.90 - 5.20 x10(6)/mcL 04/19/2018 3:39 PM EST [facility] Hgb 12.0 11.2 - 15.7 g/dL 04/19/2018 3:39 PM EST [facility] Hct 38.6 34.0 - 45.0 % 04/19/2018 3:39 PM EST [facility] MCV 96.7 79.0 - 98.0 fL 04/19/2018 3:39 PM EST [facility] MCH 30.1 26.0 - 32.0 pg 04/19/2018 3:39 PM EST [facility] MCHC 31.1 30.7 - 35.5 g/dL 04/19/2018 3:39 PM EST [facility] RDW 14.6 <=14.9 % 04/19/2018 3:39 PM EST [facility] Platelet 170 155 - 369 x10(3)/mcL 04/19/2018 3:39 PM EST [facility] MPV 12.3 8.8 - 12.5 fL 04/19/2018 3:39 PM EST [facility] Neut Percent 65.1 % 04/19/2018 3:39 PM EST [facility] Comment:Neutrophils equals s egs plus bands Imm Gran% 0.7 % 04/19/2018 3:39 PM EST [facility] Comment:Automated count of m etamyelocytes, myelocytes and promyelocytes. Lymph Percent 25.1 % 04/19/2018 3:39 PM EST [facility] [place] Percent 5.8 % 04/19/2018 3:39 PM EST [facility] Eos Percent 2.9 % 04/19/2018 3:39 PM EST [facility] Baso Percent 0.4 % 04/19/2018 3:39 PM EST [facility] Neut # 4.5 1.6 - 6.1 x10(3)/[facility] 04/19/2018 3:39 PM EST [facility] Comment:Neutrophils equals s egs plus bands IMMGRAN# 0.1 0.0 - 0.1 x10(3)/[facility] 04/19/2018 3:39 PM EST [facility] Comment:Automated count of m etamyelocytes, myelocytes and promyelocytes. An absolute IG <0.1 is reported as 0.0. Lymph # 1.7 1.2 - 3.9 x10(3)/[facility] 04/19/2018 3:39 PM EST [facility] [place] # 0.4 0.3 - 0.9 x10(3)/[facility] 04/19/2018 3:39 PM EST [facility] Eos# 0.2 0.0 - 0.5 x10(3)/[facility] 04/19/2018 3:39 PM EST [facility] Baso # 0.0 0.0 - 0.1 x10(3)/[facility] 04/19/2018 3:39 PM EST [facility] Blood VENOUS BLOOD / Unknown Venipuncture / Unknown 04/19/2018 9:49 AM EST 04/19/2018 9:49 AM EST Sharee Segovia MANAGER CULTURE HEMATOLOGY ORDERABLES Fin al Result [facility] [address] [facility] , [address] [place] [id number] * (ABNORMAL) HEMOGLOBIN A1C (04/19/2018 9:49 AM EST) Hgb A1C 6.6(H) 4.2 - 5.6 % 04/19/2018 4:07 PM EST [facility] Est. Avg Glucose 143 mg/dL 04/19/2018 4:07 PM EST [facility] Blood VENOUS BLOOD / Unknown Venipuncture / Unknown 04/19/2018 9:49 AM EST 04/19/2018 9:49 AM EST Narrative [employer] - 04/19/2018 4:07 PM EST REFERENCE RANGE: Normal: 4.0-5.6% Pre-diabetes: 5.7-6.4% Provisional diagnosis of diabetes: >6.4% Hgb F>10% and anything which shortens red cell survival, such as hemolytic anemia, or unstable hemoglobin variants such as HbSS, HbSC, or HbCC, will lower the HbA1c value associated with a given level of glycemic control. ? us Shareeyola Segovia MANAGER CULTURE CHEMISTRY ORDERABLES Mildred glendy Result [employer] [facility] [address] [facility] , [address] [place] [id number] * IRIS DIABETIC RETINOPATHY EXAM (04/19/2018 9:31 AM EST) Retinopathy Exam Severity NORMAL [facility] Right Diabetic Retinopathy None [facility] Right Macular Edema None [facility] Right Other Retina None [facility] Right Eye Image Quality Gradable Image [facility] Left Diabetic Retinopathy None [facility] Left Macular Edema None [facility] Left Other Retina None [facility] Left Eye Image Quality Gradable Image [facility] 04/19/2018 9:31 AM EST 04/19/2018 9:31 AM EST Impressions [facility] - 04/19/2018 7:55 PM EST Retinal Study Result for FABY PALM DEBORAH, joshua 67 y/o, F (: 1950, ) presented to [facility] on 04-19-2018 for a retinal imaging study of the left and right eyes. Based on the findings of the study, the following is recommended for FABY PALM Normal Study: Return for follow up exam in 12 months or next calendar year. Interpreting Provider's Comments: ??No comments provided Diagnoses Present: E11.9 - Type 2 diabetes mellitus without complications Right Eye Findings: Normal Result. ??Negative for Diabetic Retinopathy. Left Eye Findings: Normal Result. ??Negative for Diabetic Retinopathy. This result was electronically signed by Darrel Parker MD, , Taxonomy: [id number] on 04-20-2018 12:55:08 [facility] time. NOTE: ??Any pathology noted on this diabetic retinal evaluation should be confirmed by an appropriate ophthalmic examination. 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) Type II or unspecified type diabetes mellitus with neurological manifestations, not stated as uncontrolled Iron deficiency anemia due to chronic blood loss Iron deficiency anemia secondary to blood loss (chronic) Screening for metabolic disorder Screening for lipid disorders Screening for thyroid disorder Encounter for vitamin deficiency screening Screening for other and unspecified endocrine, nutritional, metabolic, and immunity disorders Menopause Symptomatic menopausal or female climacteric states Type 2 diabetes mellitus without complication, unspecified whether jail insulin use (HCC) Hemiparesis affecting left side as late effect of stroke (HCC) Hemiplegia affecting unspecified side, late effect of cerebrovascular disease Schizoaffective disorder, depressive type (HCC) Schizoaffective disorder, unspecified condition Chronic diastolic CHF (congestive heart failure) (HCC) Encounter for screening mammogram for breast cancer Encounter for screening mammogram for breast cancer documented in this encounter Additional Health Concerns Assessment Noted Time PHQ-9 Depression Total Score: 13 019 9:00 AM EST A fall risk assessment has been complete d for the patient 04/21/2017 10:52 AM EST PHQ-2 Depression Total Score: 6 04/19/19 19 9:00 AM EST documented as of this encounter Care Teams Associate Curator Relationship Specialty Start Date End Date Sharee Segovia APRN [address] [place] [phone] PCP - General Nurse Practitioner-Family 09/21/16 documented as of this encounter
--- OUTSIDE RECORDS SUMMARY | 2024-02-16 14:53 | XMS_ITS | Encounter Summary ---
Author Organization [place] [address] Care Team Providers Care Student Worker Name Role Phone Sharee Segovia [address] [facility]ISER Primary Care Provider [phone] Katheryn Allen RN Unavailable Unavailable Reason for Visit * Reason Onset Date Comments Medication Refill 08/06/2017 Encounter Details Date Type Department Care Team (Late st Contact Info) Description 08/06/2017 Refill SEP Sunny PATRICK [address] [place] [address] Sharee Segovia APRN [address] [place], [place] [id number] Medication Refill Social History Tobacco Use Types [...] on file documented as of this encounter Ordered Prescriptions Prescription Sig Dispense Quantity Refills Last Filled Start Date End Date metoprolol 75 mg Oral Tablet Take 75 mg by mouth 2 times daily. 60 Tab 2 08/06/2017 09/21/2017 cloNIDine HCl (CATAPRES) 0.1 mg Oral Tablet Take 1 Tab by mouth daily. Hold for SBP <90 30 Tab 2 08/06/2017 09/21/2017 documented in this encounter Plan of Treatment [...] Discontinue Reason Start Date End Da te metoprolol (LOPRESSOR) 50 mg Oral Tablet TAKE 1 TABLET BY MOUTH 2 TIMES DAILY DELETE- Entered in Error 01/26/2017 08/06/2017 cloNIDine HCl (CATAPRES) 0.1 mg Oral Tablet Take 1 Tab by mouth daily. Hold for SBP <90 DELETE- Entered in Error 08/02/2017 08/06/2017 metoprolol (LOPRESSOR) 25 mg Oral Tablet Take 1 Tab by mouth 2 times daily. DELETE- Entered in Error 07/26/2017 08/06/2017 documented as of this encounter Additional Health Concerns Assessment Noted Time A fall risk assessment has been complete d for the patient 04/21/2017 10:52 AM EST documented as of this encounter Care Teams Student Worker Relationship Specialty Start Date End Date Sharee Segovia APRN [address] [place] [phone] PCP - General Nurse Practitioner-Family 09/21/16 Katheryn Allen, RN Health Advocate Registered Nurse 08/04/17 09/14/17 documented as of this encounter
--- OUTSIDE RECORDS SUMMARY | 2024-02-16 14:53 | XMS_ITS | Encounter Summary ---
Author Organization [place] [address] Care Team Providers Care Car Carder Name Role Phone Sharee Segovia APRN Primary Care Provider [phone] Katheryn Allen RN Unavailable Unavailable Khalida Hunter KETTLE SKIMMER, COS Unavailable Unavai lable Reason for Visit * Reason Comments Chest Pain c/o chest pain had t hree nitro prior to squad arrival and received nitro (3) enroute. pt takes a BASA a day took her lasix today. * Auth/Cert/Inpt Specialty Diagnoses / Procedures Referred By Arsh patel Referred To Contact Diagnoses Chest pain Chest pain in adult Referral ID Status Reason Start Date Expiration Date Visits Re quested Visits Authorized [id number] 1 1 Encounter Details Date Type Department Care Team (Late st Contact Info) Description 08/19/2017 11:48 AM EDT - 08/20/2017 12:04 PM EDT Emergency [facility] [address] [place] [address]. [place] [address] Nasir Yanez MD [address] [place] [phone] Jefferson Mckeon MD [address] [place] [id number] Acute chest pain (Primary Dx) Discharge Disposition: Shelter Facility Social History Tobacco Use Types Packs/Day Years [...] Sign Reading Time Taken Comments Blood Pressure 160/66 08/20/2017 8:58 AM EDT Pulse 52 08/20/2017 8:58 AM EDT Temperature 36.7 ??C (98.1 ??F) 08/20/2017 8:58 AM ED T Respiratory Rate 18 08/20/2017 8:58 AM EDT Oxygen Saturation 97% 08/20/2017 8:58 AM EDT Inhaled Oxygen Concentration - - Weight 104.3 kg (230 lb) 08/19/2017 11:51 AM EDT Height 172.7 cm (5' 8 ) 08/19/2017 11:51 AM EDT Body Mass Index 34.97 08/19/2017 11:51 AM EDT documented in this encounter Functional [...] Entry Date Author Yes 08/09/2017 9:08 AM LET Birdie Kyle RMA documented in this encounter Discharge Summaries * Jefferson Mckeon MD - 08/20/2017 11:45 AM EDT [facility] Discharge Summary Patient Name: Faby Palm : 1950 Admit Date: 08/19/2017 Discharge Date: 08/20/2017 Admitting Physician: Jefferson Mckeon MD Discharging Physician: Jefferson Mckeon MD Reason for Hospitalization: Active Hospital Problems Chronic diastolic CHF (congestive heart failure) (HCC) *Chest pain at rest ASHD (arteriosclerotic heart disease) History of CVA with residual deficit Essential hypertension Brief Hospital Summary: 67-year-old female [facility]. She had negative troponin ??3. Her left heart cath from last month did not show any evidence of flow-limiting disease. She was placed on Vistaril which improved her chest pain. Chest pain is likely from anxiety. [facility]. Labs and imaging follow-up needed: none Consultants: Discharge Exam: Vitals: 08/20/17 0858 BP: 160/66 Pulse: 52 Resp: 18 Temp: 98.1 ??F (36.7 ??C) SpO2: 97% See Progress Note Correct Full Discharge Med List: Medication List START taking these medications hydrOXYzine 25 mg Cap Dose: 25 mg Qty: 60 Cap Refills: 0 Commonly known as: VISTARIL 25 mg, Oral, 3 TIMES DAILY PRN CHANGE how you take these medications insulin glargine 100 unit/mL Soln Qty: 10 mL Refills: 2 Commonly known as: LANTUS 30 units sq nightly What changed: ?? how much to take ?? when to take this ?? additional instructions metoprolol tartrate 75 mg Tab Dose: 75 mg Qty: 60 Tab Refills: 2 75 mg, Oral, 2 TIMES DAILY What changed: how much to take CONTINUE taking these medications acetaminophen 325 mg Tab Dose: 650 mg Refills: 0 Commonly known as: TYLENOL amLODIPine 2.5 mg Tab Dose: 2.5 mg Qty: 30 Tab Refills: 11 Commonly known as: NORVASC 2.5 mg, Oral, DAILY ANTI-GAS ORAL Refills: 0 ARIPiprazole 30 mg Tab Dose: 30 mg Qty: 30 Tab Refills: 0 Commonly known as: ABILIFY 30 mg, Oral, DAILY aspirin 81 mg Chew Dose: 81 mg Qty: 60 Tab Refills: 0 81 mg, Oral, DAILY atorvastatin 20 mg Tab Qty: 30 Tab Refills: 1 Commonly known as: LIPITOR TAKE ONE TABLET BY MOUTH NIGHTLY cloNIDine HCl 0.1 mg Tab Dose: 0.1 mg Qty: 30 Tab Refills: 2 Commonly known as: CATAPRES 0.1 mg, Oral, DAILY, Hold for SBP <90 clopidogrel 75 mg Tab Dose: 75 mg Qty: 90 Each Refills: 1 Commonly known as: PLAVIX 75 mg, Oral, DAILY ferrous sulfate 325 mg (65 mg iron) Tab Dose: 325 mg Qty: 60 Tab Refills: 5 325 mg, Oral, 2 TIMES DAILY WITH MEALS FIBER CHOICE (INULIN) 1.5 gram Chew Refills: 0 Generic drug: inulin FIBER CHOICE ORAL Dose: 325 mg Refills: 0 fUROsemide 20 mg Tab Dose: 20 mg Qty: 30 Tab Refills: 0 Commonly known as: LASix 20 mg, Oral, DAILY glipiZIDE 10 mg Tab Dose: 10 mg Refills: 0 Commonly known as: GLUCOTROL isosorbide mononitrate 60 mg Tb24 Qty: 30 Tab Refills: 1 Commonly known as: IMDUR TAKE ONE TABLET BY MOUTH ONCE DAILY lamoTRIgine 25 mg Tab Dose: 25 mg Qty: 60 Tab Refills: 0 Commonly known as: LaMICtal 25 mg, Oral, 2 TIMES DAILY lisinopril 20 mg Tab Dose: 20 mg Refills: 0 Commonly known as: PRINIVIL;ZESTril loperamide 2 mg Cap Dose: 2 mg Refills: 0 Commonly known as: IMODIUM metFORMIN XR 500 mg Tb24 Dose: 500 mg Refills: 0 Commonly known as: GLUCOPHAGE-XR nitroGLYCERIN 0.4 mg Subl Dose: 0.4 mg Qty: 20 Tab Refills: 2 Commonly known as: NITROSTAT 0.4 mg, Sublingual, EVERY 5 MIN PRN nystatin Powd Refills: 0 Commonly known as: MYCOSTATIN RANEXA 1,000 mg Tb12 Qty: 60 Tab [...] as: CARAFATE traZODone 50 mg Tab Dose: 50 mg Qty: 30 Tab Refills: 2 Commonly known as: DESYREL 50 mg, Oral, NIGHTLY Where to Get Your Medications These medications were sent to [id number] [place] [address] [address] [facility] -[phone] [address] [facility] [id number] ?? hydrOXYzine 25 mg Cap Condition at Discharge: stable Disposition: Home Follow-up: Sharee Segovia ARNP [facility] [place] [address] Schedule an appointment as soon as possible for a visit [facility] [place] Jefferson Mckeon MD 08/20/2017 documented in this encounter Discharge Instructions * Attachments The following attachments cannot be sent through Care Everywhere. * HYDROXYZINE CAPSULES OR TABLETS (UKRAINIAN) documented in this encounter Medications at Time of Discharge atorvastatin (LIPITOR) 20 mg Oral Tablet TAKE ONE TABLET BY MOUTH NIGHTLY 30 Tab 1 03/24/2017 ferrous sulfate 325 mg (65 mg iron) Oral Tablet Take 1 Tab by mouth 2 times daily (with meals). 60 Tab 5 04/04/2015 Saccharomyces boulardii (FLORASTOR) 250 mg Oral Capsule [...] by mouth daily. 30 Tab 02/23/2017 9 aspirin 81 mg Oral Tablet, Chewable Take 1 Tab by mouth daily. 60 Tab 04/14/2017 8 cloNIDine HCl (CATAPRES) 0.1 mg Oral Tablet Take 1 Tab by mouth daily. Hold for SBP <90 30 Tab 2 08/06/2017 8 glipiZIDE (GLUCOTROL) 10 mg Oral Tablet Take 10 mg by mouth 2 times daily (with meals). 8 hydrOXYzine (VISTARIL) 25 mg Oral Capsule Take 1 Cap by mouth 3 times daily as needed (anxiety) for up to 30 days. 60 Cap 08/19/2017 8 isosorbide mononitrate (IMDUR) 60 mg Oral Tablet Sustained Release 24 hr TAKE ONE TABLET BY MOUTH ONCE DAILY 30 Tab 1 03/24/2017 9 lisinopril (PRINIVIL;ZESTRIL ) 20 mg Oral Tablet Take 20 mg by mouth daily. 8 loperamide (IMODIUM) 2 mg Oral Capsule Take 2 mg by mouth 3 times daily as needed. 9 metFORMIN XR (GLUCOPHAGE-XR) 500 mg Oral Tablet Sustained Release 24 hr Take 500 mg by mouth daily (with breakfast). 9 metoprolol 75 mg Oral Tablet Take 75 mg by mouth 2 times daily. 60 Tab 2 08/06/2017 8 nitroGLYCERIN (NITROSTAT) 0.4 mg SL Tablet, SublingualIndicat ions:Angina pectoris (HCC) Place 1 Tab under the tongue every 5 minutes as needed for Chest pain. 20 Tab 2 11/19/2016 9 documented as of this encounter Ordered Prescriptions Prescription Sig Dispense Quantity Refills Last Filled Start Date End Date hydrOXYzine (VISTARIL) 25 mg Oral Capsule Take 1 Cap by mouth 3 times daily as needed (anxiety) for up to 30 days. 60 Cap 08/19/2017 09/18/2017 documented in this encounter Discharge Disposition Disposition Code Departure Means Destination Shelter Facility Oth er documented in this encounter Progress Notes * Tesha May RN - 08/20/2017 11:31 AM EDT Patient discharged to assisted living facility, instructions given, cab called, IV discontinued, site WNL, Patient voiced understanding, * Mike Dunaway - 08/20/2017 11:21 AM EDT 08/20/17 1100 Pastoral Care Encounter Visited With Patient Date of visit 08/20/17 Visit Type Initial Need to follow-up? Yes Yazidi Needs Prayer Sacramental Needs Has Patient Received SOS? Yes Date of Sacrament of the Sick (Anointing) 08/20/17 Pastoral Care Plan/Intervention Plan/Intervention Sacraments;Prayer 08/20/2017 Mike Dunaway * Jefferson Mckeon MD - 08/20/2017 8:40 AM EDT Images from the original note were not included. Admit Date: 08/19/2017 LOS: 0 days HPI: Faby Palm is a(n)67 y.o. female being followed for Chest pain [R07.9] Chest pain in adult [R07.9]. Subjective: Seen today and examined. Reports chest pain is much better. No acute events overnight as per RN reports. Objective: I reviewed all labs, imaging studies and current inpatient medications as of this date Scheduled Meds: ??? amLODIPine 2.5 mg Oral Daily ??? ARIPiprazole 30 mg Oral Daily ??? aspirin 81 mg Oral Daily ??? atorvastatin 20 mg Oral Nightly ??? cloNIDine HCl 0.1 mg Oral Daily ??? clopidogrel 75 mg Oral Daily ??? ferrous sulfate 325 mg Oral BID WM ??? fUROsemide 20 mg Oral Daily ??? insulin glargine 28 Units Subcutaneous Nightly ??? isosorbide mononitrate 60 mg Oral Daily ??? lamoTRIgine 25 mg Oral BID ??? lisinopril 20 mg Oral Daily ??? metoprolol 75 mg Oral BID ??? miconazole Topical 2 times per day ??? ranolazine 1,000 mg Oral 2 times per day ??? sertraline 200 mg Oral Daily ? ? sucralfate 1 g Oral QID AC & HS ??? traZODone 50 mg Oral Nightly Continuous Infusions: BP 160/66 (BP Location: Right arm, Patient Position: Sitting) Pulse 52 Temp 98.1 ??F (36.7 ??C)(Oral) Resp 18 Ht 5' 8 (1.727 m) Wt 230 lb (104.3 kg) SpO2 97% BMI 34.97 kg/m?? Patient not in acute distress,comfortable resting in bed. Eyes- FOUZIA, EOM intact, Neck No lymphadenopathy,JVP normal. Lungs Clear to auscultation. Heart regular S1, S2 are normal. No murmur. Abd soft, Non tender, Not distended, bowel sounds are present. Extremities no pedal edema, DP 2+ B/L Neuro AAO X3. Radiology: Xr Chest Pa And Lateral Result Date: 08/19/2017 PA AND LATERAL CHEST X-RAY, 08/19/2017 12:37 PM CLINICAL HISTORY: -CHEST PAIN COMPARISON: 08/01/2017 PROCEDURE COMMENTS: Frontal and lateral views of the chest. FINDINGS: Stable heart size and pulmonary vascularity. No focal pulmonary infiltrates, effusion, or pneumothorax. Degenerative changes in the shoulders. Stable chest Ek Ekg 12 Lead Result Date: 08/20/2017 NOTICE: Preliminary tracing available for review; Final Interpretation by physician to follow. Stationary ECG Study [facility] Interpretive Statements SINUS BRADYCARDIA LOW QRS VOLTAGE IN PRECORDIAL LEADS INFERIOR MYOCARDIAL INFARCTION, PROBABLY OLD ANTEROSEPTAL MYOCARDIAL INFARCTION, PROBABLY OLD Ek Ekg 12 Lead Result Date: 08/19/2017 NOTICE: Preliminary tracing available for review; Final Interpretation by physician to follow. Stationary ECG Study [facility] Interpretive Statements SINUS RHYTHM WITH OCCASIONAL SUPRAVENTRICULAR PREMATURE COMPLEXES LOW QRS VOLTAGE IN PRECORDIAL LEADS INFERIOR MYOCARDIAL INFARCTION, PROBABLY OLD ANTEROLATERAL MYOCARDIAL INFARCTION, PROBABLY OLD NO CHANGE Electronically Signed On 08-19-2017 12:04:00 EDT by Kamari Goss MD Assessment/Plan: Chest pain at rest Likely from anxiety. Chest pain much better with Vistaril. Not cardiac in etiology. Negative troponin ??3. Her left heart cath on 07/25/2017 showed no clear flow-limiting disease. The ostial RCA of 50-70%-difficult to image due to angulation with FFR of 0.92, mid LAD 50% with FFR of 0.82, normal LV diastolic pressure. Continue aspirin, Plavix, statin, Imdur, ranolazine metoprolol. ?? Chronic diastolic heart failure Compensated. On Lasix, metoprolol and lisinopril. ?? Bradycardia On beta-laquita. ?? Essential hypertension Blood pressures controlled. Continue clonidine, amlodipine, lisinopril, metoprolol. ?? HLD Statin ?? Schizoaffective disorder/intellectual disability On Abilify ?? Type 2 diabetes mellitus Lantus and sliding scale insulin. ?? Prophylaxis DVT-heparin PPI Okay to discharge. Jefferson Mckeon MD This note was generated using voice recognition technology. It has been reviewed by the undersigned, however, may still contain unintended errors * Tsering Flores RN - 08/19/2017 7:[address] Mckeon discharged patient. Attempted to call [facility] [place] with multiple numbers, no answer. Pt stated They go home at 2. Pt educated on discharge plan. Will wait until AM to discuss with people at [facility] [place]. * Evie Casiano RN - 08/19/2017 6:45 PM EDT Pt was incontinent, brief removed by STEEL S[employer] ERECTOR. Pt skin folds around the ananya area were noted to be extremely excoriated and painful. Order obtained for powder. Pillow cases were placed in the skin folds while waiting for powder to be delivered. Pt requested vistaril and stated she's going through a lotright now because her boyfriend is also in the hospital. * Stefani Haro RN - 08/19/2017 1:44 PM EDT 08/19/17 1342 ED Screening ED Screening Completed Initial screening complete, post-acute needs identified, assessment to follow Medical Record Reviewed Yes Who you interviewed In person interview with patient What brought the patient to the ED chest pain Where did the patient come from? [facility] Support Systems Home Care Staff Issues related to prior living situation uses a walker Activities of Daily Living Needs Assistance Mental Status Alert and oriented Issues with non-compliance No Anticipated post-acute care needs Home with OP Follow Up Potential barriers to discharge No Observation Information Provided to Patient/Family Yes form signed Does patient meet high risk triggers? Readmitted within last 30 days documented in this encounter H&P Notes * Jefferson Mckeon MD - 08/19/2017 3:14 PM EDT Images from the original note were not included. Name: Faby Palm ADDRESS: [address] [place] [address] : 1950 AGE: 67 y.o. Admitting Physician: Jefferson Mckeon MD Date of Admit: 08/19/2017 PCP:Sharee Segovia ARNP Chief Complaint: Chest Pain (c/o chest pain had three nitro prior to squad arrival and received nitro (3) enroute. pt takes a BASA a day took her lasix today. ) History of Present Illness: Patient is a 67 y.o. female with past medical history of HTN, HLD, diastolic heart failure, DM, schizoaffective disorder who lives in [facility] is admitted to hospital with chest pain. She reports that she was watching TV at 11 AM today when she developed left-sided chest pressure, 9/10 in intensity and nothing seems to set this off. She was given aspirin andsublingual nitroglycerin without much relief and brought to hospital. In the emergency room she wasgiven Nitropaste. She reports that her pain is now 4/10 in intensity. She reports that she is goingthrough stressful time as her boyfriend is admitted to hospital for lupus. Her chest x-ray is unremarkable for acute changes. Her 2 troponins are negative. She reports she is having anxiety. She had left heart cath done last month which showed no low limiting disease. She was admitted to hospital 2weeks ago with chest pain which was noncardiac. Her dose of clonidine was reduced. Past Medical History: Diagnosis Date ??? Atrial flutter (HCC) EPS, AFL Ablation on 12/31/[address] Tee ??? CHF (congestive heart failure) (HCC) ??? COPD (chronic obstructive pulmonary disease) (HCC) ??? DDD (degenerative disc disease) ??? Diabetes mellitus (HCC) ??? Hypertension ??? Intellectual disability 05/03/2017 ??? LA (myocardial infarction) ([facility]) ??? RLS (restless legs syndrome) ??? Schizoaffective disorder, depressive type ([facility]) 02/19/2017 ??? Stroke (HCC) 2010 left side [...] Brown MD; Location: T ENDOSCOPY; Service: Endoscopy Prior to Admission medications Medication Sig Start Date End Date Taking? Authorizing Provider acetaminophen 325 mg Oral Tab Take 650 mg by mouth every 4 hours as needed for Pain. Provider, Historical pirfi-O-fqtmscndsrkkx (ANTI-GAS ORAL) Take by mouth 3 times daily as needed. Provider, Historical amLODIPine (NORVASC) 2.5 mg Oral Tablet Take 1 Tab by mouth daily. 07/20/17 Sridevi Calle APRN ARIPiprazole (ABILIFY) 30 mg Oral Tablet Take 1 Tab by mouth daily. 02/23/17 Eric Gavin MD aspirin 81 mg Oral Tablet, Chewable Take 1 Tab by mouth daily. 04/14/17 Sherif Bartholomew MD atorvastatin (LIPITOR) 20 mg Oral Tablet TAKE ONE TABLET BY MOUTH NIGHTLY 03/24/17 Joanna Pierce MD cloNIDine HCl (CATAPRES) 0.1 mg Oral Tablet Take 1 Tab by mouth daily. Hold for SBP <90 08/06/17 Sharee Segovia ARNP clopidogrel (PLAVIX) 75 mg Oral Tablet Take 1 Tab by mouth daily. 07/27/17 Ben Anderson APRN ferrous sulfate 325 mg (65 mg iron) Oral Tablet Take 1 Tab by mouth 2 times daily (with meals). 04/04/15 Campbell Huston MD fUROsemide (LASIX) 20 mg Oral Tablet Take 1 Tab by mouth daily. 05/12/17 Eric Gavin MD glipiZIDE (GLUCOTROL) 10 mg Oral Tablet Take 10 mg by mouth 2 times daily (with meals). Provider, Historical insulin glargine (LANTUS) 100 unit/mL SubQ Solution 30 units sq nightly 08/09/17 Sharee Segovia ARNP inulin (FIBER CHOICE, INULIN,) 1.5 gram Oral Tablet, Chewable Take by mouth 2 times daily. Provider, Historical isosorbide mononitrate (IMDUR) 60 mg Oral Tablet Sustained Release 24 hr TAKE ONE TABLET BY MOUTH ONCE DAILY 03/24/17 Joanna Pierce MD lamoTRIgine (LAMICTAL) 25 mg Oral Tablet Take 1 Tab by mouth 2 times daily. 05/12/17 Eric Gavin MD lisinopril (PRINIVIL;ZESTRIL) 20 mg Oral Tablet Take 20 mg by mouth daily. Provider, Historical loperamide (IMODIUM) 2 mg Oral Capsule Take 2 mg by mouth 2 times daily. Provider, Historical metFORMIN XR (GLUCOPHAGE-XR) 500 mg Oral Tablet Sustained Release 24 hr Take 500 mg by mouth daily (with breakfast). Provider, Historical metoprolol 75 mg Oral Tablet Take 75 mg by mouth 2 times daily. 08/06/17 Sharee Segovia ARNP nitroGLYCERIN (NITROSTAT) 0.4 mg SL Tablet, Sublingual Place 1 Tab under the tongue every 5 minutesas needed for Chest pain. 11/19/16 Sharee Segovia ARNP nystatin (MYCOSTATIN) Top Powder Apply topically 2 times daily. Provider, Historical RANEXA 1,000 mg Oral Tablet Sustained Release 12 hr TAKE ONE TABLET BY MOUTH EVERY 12 HOURS 08/04/17Joanna Pierce MD sertraline (ZOLOFT) 100 mg Oral Tablet Take 200 mg by mouth daily. Reported on 08/12/2016 Provider, Historical traZODone (DESYREL) 50 mg Oral Tablet Take 1 Tab by mouth nightly. 08/09/17 Sharee Segovia ARNP Allergies Allergen Reactions ??? Compazine [Prochlorperazine Edisylate] ??? Rienzi ??? Pentazocine Hcl ??? Prochlorperazine Maleate ??? [...] ??? None Social History Narrative Lives at [facility] Has two children and two [...] or easy bruising. Physical Exam: Blood pressure 132/85, pulse 56, temperature 98.7 ??F (37.1 ??C), temperature source Oral, resp. rate 16, height 5' 8 (1.727 m), weight 230 lb (104.3 kg), SpO2 100 %. Body mass index is 34.97 kg/m??. Body surface area is 2.17 meters squared. Constitutional: Pt appears well-developed and well-nourished. No distress. HEENT: Normocephalic and atraumatic. Oropharynx is clear and moist. Conjunctivae and EOM are normal. Pupils are equal, round, and reactive to light. No scleral icterus. Neck: Normal range of motion. Neck supple. Cardiovascular normal rate, regular rhythm, no murmur. Pulmonary/Chest: Clear breath sounds bilaterally. No crackles, [...] CBC: Lab Results Component Value Date WBC 9.9 08/19/2017 RBC 4.48 08/19/2017 HGB 13.2 08/19/2017 HCT 39.4 08/19/2017 MCV 87.9 08/19/2017 MCHC 33.6 08/19/2017 RDW 14.6 08/19/2017 MPV 9.5 08/19/2017 BMP: Lab Results Component Value Date NA 140 08/19/2017 K 4.0 08/19/2017 CL 100 08/19/2017 CO2 28 08/19/2017 BUN 11 08/19/2017 CREATININE 1.14 08/19/2017 CALCIUM 9.6 08/19/2017 GFRAFRAM 58 08/19/2017 GFRNONAFRAM 50 08/19/2017 GLU 191 (H) 08/19/2017 Hepatic: No results found for: ALKPHOS, ALT, AST, PROT, LABBILI, BILIDIR, IBILI, LABALBU No results found for: AMYLASE, LIPASE U/A:No results found for: SPECGRAV, UAPROTEIN, BLOODU, NITRITE, LEUKOCYTESUR, WBCUA, RBCUA Coagulation: No results found for: INR, APTT Cardiac markers: No results found for: CKMB, MYOGLOBIN ABGs:No results found for: PH, PCO2, PO2, HCO3, TCO2, BASEEXCESS, O2SAT, INSPIREDO2, SPECIMENTYPE Radiology: Xr Chest Pa And Lateral Result Date: 08/19/2017 PA AND LATERAL CHEST X-RAY, 08/19/2017 12:37 PM CLINICAL HISTORY: -CHEST PAIN COMPARISON: 08/01/2017 PROCEDURE COMMENTS: Frontal and lateral views of the chest. FINDINGS: Stable heart size and pulmonary vascularity. No focal pulmonary infiltrates, effusion, or pneumothorax. Degenerative changes in the shoulders. Stable chest Ek Ekg 12 Lead Result Date: 08/19/2017 NOTICE: Preliminary tracing available for review; Final Interpretation by physician to follow. [facility] Interpretive Statements SINUS RHYTHM WITH OCCASIONAL SUPRAVENTRICULAR PREMATURE COMPLEXES LOW QRS VOLTAGE IN PRECORDIAL LEADS INFERIOR MYOCARDIAL INFARCTION, PROBABLY OLD ANTEROLATERAL MYOCARDIAL INFARCTION, PROBABLY OLD NO CHANGE Electronically Signed On 08-19-2017 12:04:00 EDT by Kamari Goss MD EKG Reviewed: Results for orders placed during the hospital encounter of 08/19/17 EK EKG 12 LEAD Impression Stationary ECG Study [facility] Suki Chrissy Interpretive Statements SINUS RHYTHM WITH OCCASIONAL SUPRAVENTRICULAR PREMATURE COMPLEXES LOW QRS VOLTAGE IN PRECORDIAL LEADS INFERIOR MYOCARDIAL INFARCTION, PROBABLY OLD ANTEROLATERAL MYOCARDIAL INFARCTION, PROBABLY OLD NO CHANGE Electronically Signed On 08-19-2017 12:04:00 EDT by Kamari Goss MD Assessment/plan: Active Hospital Problems Diagnosis ??? *Chest pain at rest ??? Chronic diastolic CHF (congestive heart failure) (HCC) ??? ASHD (arteriosclerotic heart disease) ??? History of CVA with residual deficit ??? Essential hypertension Chest pain at rest Negative troponin ??2. Trend troponin ??3. Low suspicion for cardiac in etiology. Likely anxiety. Her left heart cath on 07/25/2017 showed no clear flow-limiting disease. The ostial RCA of 50-70%-difficult to image due to angulation with FFR of 0.92, mid LAD 50% with FFR of 0.82, normal LV diastolic pressure. Continue aspirin, Plavix, statin, Imdur, ranolazine metoprolol. Start on p.o. Vistaril as needed. Chronic diastolic heart failure Compensated. On Lasix, metoprolol and lisinopril. Bradycardia On beta-laquita. Essential hypertension Blood pressures controlled. Continue clonidine, amlodipine, lisinopril, metoprolol. HLD Statin Schizoaffective disorder/intellectual disability On Abilify Type 2 diabetes mellitus Lantus and sliding scale insulin. Prophylaxis DVT-heparin PPI Disposition-okay to [facility] to [facility] if third troponin is negative. Jefferson Mckeon MD 08/19/2017 This note was generated using voice recognition technology. It has been reviewed by the undersigned, however, may still contain unintended errors documented in this encounter ED Notes * Nasir Yanez MD - 08/19/2017 11:48 AM EDT Chief Complaint Patient presents with ??? Chest Pain c/o chest pain had three nitro prior to squad arrival and received nitro (3) enroute. pt takes a BASA a day took her lasix today. Patient has a history of CHF, diabetes mellitus, hypertension, chronic angina, elevated cholesterol, psychiatric issues with schizoaffective disorder presents here due to due to chest pain. Patient tells me she was watching TV this morning she's not sure what time it started but she started with jaw pain and left arm pain and chest pain. Appears that she was given aspirin as well as 3 nitroglycerin sublingual per EMS. She feels better but still having pain. 07/25/2017 cardiac catheter Result status: Final result ? Ost RCA lesion 60% stenosed. ?? Mid RCA lesion 40% stenosed. ?? Mid LAD lesion 50% stenosed. Significant but not clearly flow limiting dz Ostial RCA of 50-70% - difficult to image due to angulation with FFR of 0.92 Mid LAD appearing 50% with FFR of 0.82 Normal LVEDP History provided by: Patient, medical records and EMS personnel hourly sign language interpreter used: No Chest Pain Associated symptoms: no abdominal pain, no cough, no fever, no nausea, no palpitations, no shortness of breath and no vomiting Patient History Allergies Allergen Reactions ??? Compazine [Prochlorperazine Edisylate] ??? Rienzi ??? Pentazocine Hcl ??? Prochlorperazine Maleate ??? Talwin [Pentazocine Lactate] Home Medications: Prior to Admission medications Medication Sig Start Date End Date Taking? Authorizing Provider acetaminophen 325 mg Oral Tab Take 650 mg by mouth every 4 hours as needed for Pain. Provider, Historical ccetg-N-iviyuxlnnfuqm (ANTI-GAS ORAL) Take by mouth 3 times daily as needed. Provider, Historical amLODIPine (NORVASC) 2.5 mg Oral Tablet Take 1 Tab by mouth daily. 07/20/17 Sridevi Calle APRN ARIPiprazole (ABILIFY) 30 mg Oral Tablet Take 1 Tab by mouth daily. 02/23/17 Eric Gavin MD aspirin 81 mg Oral Tablet, Chewable Take 1 Tab by mouth daily. 04/14/17 Sherif Bartholomew MD atorvastatin (LIPITOR) 20 mg Oral Tablet TAKE ONE TABLET BY MOUTH NIGHTLY 03/24/17 Joanna Pierce MD cloNIDine HCl (CATAPRES) 0.1 mg Oral Tablet Take 1 Tab by mouth daily. Hold for SBP <90 08/06/17 Sharee Segovia ARNP clopidogrel (PLAVIX) 75 mg Oral Tablet Take 1 Tab by mouth daily. 07/27/17 Ben Anderson APRN ferrous sulfate 325 mg (65 mg iron) Oral Tablet Take 1 Tab by mouth 2 times daily (with meals). 04/04/15 Campbell Huston MD fUROsemide (LASIX) 20 mg Oral Tablet Take 1 Tab by mouth daily. 05/12/17 Eric Gavin MD glipiZIDE (GLUCOTROL) 10 mg Oral Tablet Take 10 mg by mouth 2 times daily (with meals). Provider, Historical insulin glargine (LANTUS) 100 unit/mL SubQ Solution 30 units sq nightly 08/09/17 Sharee Segovia ARNP inulin (FIBER CHOICE, INULIN,) 1.5 gram Oral Tablet, Chewable Take by mouth 2 times daily. Provider, Historical isosorbide mononitrate (IMDUR) 60 mg Oral Tablet Sustained Release 24 hr TAKE ONE TABLET BY MOUTH ONCE DAILY 03/24/17 Joanna Pierce MD lamoTRIgine (LAMICTAL) 25 mg Oral Tablet Take 1 Tab by mouth 2 times daily. 05/12/17 Eric Gavin MD lisinopril (PRINIVIL;ZESTRIL) 20 mg Oral Tablet Take 20 mg by mouth daily. Provider, Historical loperamide (IMODIUM) 2 mg Oral Capsule Take 2 mg by mouth 2 times daily. Provider, Historical metFORMIN XR (GLUCOPHAGE-XR) 500 mg Oral Tablet Sustained Release 24 hr Take 500 mg by mouth daily (with breakfast). Provider, Historical metoprolol 75 mg Oral Tablet Take 75 mg by mouth 2 times daily. 08/06/17 Sharee Segovia ARNP nitroGLYCERIN (NITROSTAT) 0.4 mg SL Tablet, Sublingual Place 1 Tab under the tongue every 5 minutesas needed for Chest pain. 11/19/16 Sharee Segovia ARNP nystatin (MYCOSTATIN) Top Powder Apply topically 2 times daily. Provider, Historical RANEXA 1,000 mg Oral Tablet Sustained Release 12 hr TAKE ONE TABLET BY MOUTH EVERY 12 HOURS 08/04/17Joanna Pierce MD sertraline (ZOLOFT) 100 mg Oral Tablet Take 200 mg by mouth daily. Reported on 08/12/2016 Provider, Historical traZODone (DESYREL) 50 mg Oral Tablet Take 1 Tab by mouth nightly. 08/09/17 Sharee Segovia ARNP Past Medical History: Past Medical History: Diagnosis Date ??? Atrial flutter (HCC) EPS, AFL Ablation on 12/31/[address] Tee ??? CHF (congestive heart failure) (HCC) ??? COPD (chronic obstructive pulmonary disease) (HCC) ??? DDD (degenerative disc disease) ??? Diabetes mellitus (HCC) ??? Hypertension ??? Intellectual disability 05/03/2017 ??? LA (myocardial infarction) ([facility]) ??? RLS (restless legs syndrome) ??? Schizoaffective disorder, depressive type ([facility]) 02/19/2017 ??? Stroke ([facility]) 2010 left side affected ??? Suicide [...] AND BRUSHING; Surgeon: Chrissy Brown MD; Location: [facility]; Service: Endoscopy Review of Systems Review of Systems Constitutional: Negative for chills and fever. HENT: Negative. Eyes: Negative. Respiratory: Negative for cough and shortness of breath. Cardiovascular: Positive for chest pain. Negative for palpitations and leg swelling. Gastrointestinal: Negative for abdominal pain, diarrhea, nausea and vomiting. Genitourinary: Negative for dysuria and frequency. Musculoskeletal: Negative. Skin: Negative for rash. Neurological: Negative. Psychiatric/Behavioral: Negative. All other systems reviewed and are negative. Physical Exam Blood pressure 150/67, pulse 64, temperature 99.5 ??F (37.5 ??C), temperature source Oral, resp. rate 24, height 5' 8 (1.727 m), weight 230 lb (104.3 kg), SpO2 98 %. Physical Exam Constitutional: She is oriented to person, place, and time. She appears well- developed and well-nourished. No distress. HENT: Mouth/Throat: Oropharynx is clear and moist. Eyes: Conjunctivae and EOM are normal. Pupils are equal, round, and reactive to light. Neck: Normal range of motion. Neck supple. Cardiovascular: Normal rate and regular rhythm. Exam reveals no gallop and no friction rub. No murmur heard. Pulmonary/Chest: Effort normal and breath sounds normal. Abdominal: Soft. Bowel sounds are normal. She exhibits no distension. There is no tenderness. Musculoskeletal: She exhibits no edema. Lymphadenopathy: She has no cervical adenopathy. Neurological: She is alert and oriented to person, place, and time. Skin: Skin is warm and dry. No rash noted. Psychiatric: She has a normal mood and affect. Nursing note and vitals reviewed. Procedures Radiology/EKG/Labs: EKG Interpretation Interpreted by me Rhythm: normal sinus Rate: normal Alloway: normal Ectopy: none Conduction: normal ST Segments: no acute change T Waves: no acute change Q Waves: none Clinical Impression: no acute changes and normal EKG Results for orders placed or performed during the hospital encounter of 08/19/17 XR CHEST PA AND LATERAL Narrative PA AND LATERAL CHEST X-RAY, 08/19/2017 12:37 PM CLINICAL HISTORY: -CHEST PAIN COMPARISON: 08/01/2017 PROCEDURE COMMENTS: Frontal and lateral views of the chest. FINDINGS: Stable heart size and pulmonary vascularity. No focal pulmonary infiltrates, effusion, or pneumothorax. Degenerative changes in the shoulders. Impression Stable chest CBC WITH DIFF Result Value Ref Range WBC 9.9 4.0 - 11.0 x10(3)/mcL RBC 4.48 3.80 - 5.10 x10(6)/mcL Hgb 13.2 12.0 - 15.6 g/dL Hct 39.4 35.7 - 45.9 % MCV 87.9 82.5 - 99.8 fL MCH 29.5 27.0 - 34.3 pg MCHC 33.6 32.1 - 35.3 g/dL RDW 14.6 11.5 - 15.0 % Platelet 183 144 - 423 x10(3)/mcL MPV 9.5 6.8 - 10.8 fL Neut Percent 71.0 % Lymph Percent 20.3 % Hubbard Percent 5.3 % Eos Percent 2.7 % Baso Percent 0.7 % Neut # 7.0 1.8 - 7.7 x10(3)/mcL Lymph # 2.0 0.6 - 4.8 x10(3)/mcL Hubbard # 0.5 0.0 - 1.3 x10(3)/mcL Eos# 0.3 0.0 - 0.5 x10(3)/mcL Baso # 0.1 0.0 - 0.2 x10(3)/mcL TROPONIN-T Result Value Ref Range Troponin-T <0.01 <0.01 ng/mL Narrative Ingestion of charles doses of biotin (>5 mg/day) taken within 8 hours of drawing blood sample can interfere with this immunoassay test. BASIC METABOLIC PANEL Result Value Ref Range Sodium 140 136 - 145 mmol/L Potassium 4.0 3.5 - 5.0 mmol/L Chloride 100 98 - 107 mmol/L Total CO2 28 22 - 29 mmol/L Anion Gap 12 7 - 16 mmol/L Calcium 9.6 8.8 - 10.2 mg/dL Glucose Lvl 191 (H) 82 - 100 mg/dL BUN 11 8 - 23 mg/dL Creatinine 1.14 0.51 - 1.30 mg/dL GFR Afr Am 58 mL/min/1.73 m2 GFR Non Afr Am 50 mL/min/1.73 m2 NT PROBNP Result Value Ref Range NT Pro-BNP 452 (H) <=319 pg/mL Narrative An NT pro-BNP level less than 300 pg/mL in any patient, regardless of age, effectively rules out acute CHF with a 99% negative predictive value. TROPONIN-T Result Value Ref Range Troponin-T <0.01 <0.01 ng/mL Narrative Ingestion of charles doses of biotin (>5 mg/day) taken within 8 hours of drawing blood sample can interfere with this immunoassay test. ECG AND WAVEFORMS - TELEMETRY Result Value Ref Range ECG INTERPRET NSR RN APPROVED Yes Narrative Station B AL 0.19 QRS 0.05 QT 0.43 See Clinical Report link for waveform capture ECG AND WAVEFORMS - TELEMETRY Result Value Ref Range ECG INTERPRET NSR RN APPROVED Yes Narrative AL 0.19 QRS 0.06 QT 0.46 See Clinical Report link for waveform capture EK EKG 12 LEAD Impression Stationary ECG Study [place] [facility]y Interpretive Statements SINUS RHYTHM WITH OCCASIONAL SUPRAVENTRICULAR PREMATURE COMPLEXES LOW QRS VOLTAGE IN PRECORDIAL LEADS INFERIOR MYOCARDIAL INFARCTION, PROBABLY OLD ANTEROLATERAL MYOCARDIAL INFARCTION, PROBABLY OLD NO CHANGE Electronically Signed On 08-19-2017 12:04:00 EDT by Kaamri Goss MD ED Course: Appropriate laboratory and radiology studies reviewed Patient did have complaints of chest pain still after arrival. Nitropaste was given. Patient will be admitted to the hospitalist service to be ruled out from a cardiac standpoint. Patient agreeable. ED Clinical Impression: Chest pain in adult (primary encounter diagnosis) Critical Care time Condition at Discharge/Transfer from Department: Stable This chart was completed using voice recognition technology and may contain unintended errors Nasir Yanez MD 08/19/17 1451 documented in this encounter Miscellaneous Notes * Utilization Review Notes - Candace Rojas RN - 08/20/2017 9:19 AM EDT NEW ADMIT FROM ED TO TELE UNIT OBV ORDER ON CHART FOR CHEST PAIN ED NOTE 08/19: Patient presents with ??? Chest Pain ? c/o chest pain had three nitro prior to squad arrival and received nitro (3) enroute. pt takes a BASA a day took her lasix today. Patient has a history of CHF, diabetes mellitus, hypertension, chronic angina, elevated cholesterol, psychiatric issues with schizoaffective disorder presents here due to due to chest pain. Patient tells me she was watching TV this morning she's not sure what time it started but she started with jaw pain and left arm pain and chest pain. Appears that she was given aspirin as well as 3 nitroglycerin sublingual per EMS. She feels better but still having pain. 07/25/2017 cardiac catheter Result status: Final result ? Ost RCA lesion 60% stenosed. ?? Mid RCA lesion 40% stenosed. ?? Mid LAD lesion 50% stenosed. Significant but not clearly flow limiting dz Ostial RCA of 50-70% - difficult to image due to angulation with FFR of 0.92 Mid LAD appearing 50% with FFR of 0.82 Normal LVEDP MD NOTE 08/19: Chest pain at rest Negative troponin ??2. Trend troponin ??3. Low suspicion for cardiac in etiology. Likely anxiety. Her left heart cath on 07/25/2017 showed no clear flow-limiting disease. The ostial RCA of 50-70%-difficult to image due to angulation with FFR of 0.92, mid LAD 50% with FFR of 0.82, normal LV diastolic pressure. Continue aspirin, Plavix, statin, Imdur, ranolazine metoprolol. Start on p.o. Vistaril as needed. Chronic diastolic heart failure Compensated. On Lasix, metoprolol and lisinopril. Bradycardia On beta-laquita. Essential hypertension Blood pressures controlled. Continue clonidine, amlodipine, lisinopril, metoprolol. HLD Statin Schizoaffective disorder/intellectual disability On Abilify Type 2 diabetes mellitus Lantus and sliding scale insulin. Prophylaxis DVT-heparin PPI Disposition-[facility] third troponin is negative. ? * Plan of Care - Tesha May RN - 08/20/2017 7:56 AM EDT Problem: Chest Pain Cardiac Dysfunction Goal: Patient will have adequate blood volume through coronary vasculature maintained and cardiac pump effectiveness will be improved Outcome: Progressing Patient has no complaints of pain this morning, she is A&O , assisted her to the bathroom. She tolerated it well. documented in this encounter Plan of Treatment [...] Priority Date/Time Associated Diagnosis Comments SCANNED EKG 08/23/2017 9:04 AM EDT GLUCOSE METER POC Routine 08/20/2017 8:4 8 AM EDT ECG AND WAVEFORMS - TELEMETRY Routine 08/20/2017 7:22 AM EDT ECG AND WAVEFORMS - TELEMETRY Routine 08/20/2017 7:00 AM EDT ECG AND WAVEFORMS - TELEMETRY Routine 08/20/2017 6:10 AM EDT ECG AND WAVEFORMS - TELEMETRY Routine 08/20/2017 6:10 AM EDT EK EKG 12 LEAD Routine 08/20/2017 12:05 AM EDT ECG AND WAVEFORMS - TELEMETRY Routine 08/19/2017 7:19 PM EDT ECG AND WAVEFORMS - TELEMETRY Routine 08/19/2017 7:00 PM EDT TROPONIN-T Timed 08/19/2017 6:12 PM EDT TROPONIN-T Timed 08/19/2017 2:19 PM EDT ECG AND WAVEFORMS - TELEMETRY Routine 08/19/2017 2:10 PM EDT ECG AND WAVEFORMS - TELEMETRY Routine 08/19/2017 2:10 PM EDT XR CHEST PA AND LATERAL EMMY 08/19/2017 12:37 PM EDT TROPONIN-T STAT 08/19/2017 12:01 PM EDT CBC WITH DIFF STAT 08/19/2017 12:01 PM EDT NT PROBNP Add-On 08/19/2017 12:01 PM EDT BASIC METABOLIC PANEL STAT 08/19/2017 12:01 PM EDT EK EKG 12 LEAD STAT 08/19/2017 11:50 AM EDT documented in this encounter Results * SCANNED EKG (08/23/2017 9:04 AM EDT) Anatomical Region Laterality Modality Other 08/23/2017 9:04 AM EDT us Unknown Unknown IMG ECG ORDERABLES Final Result * (ABNORMAL) GLUCOSE METER POC (08/20/2017 8:48 AM EDT) Glucose Meter POC 152(H) 70 - 100 mg/dL 08/20/2017 8:49 AM EDT [facility] Sample Type Capillary 08/20/2017 8:49 AM EDT [facility] Patient Status Non-Critical Patient 08/20/2017 8:49 AM EDT [facility] Blood BLOOD SPECIMEN / Unknown 08/20/2017 8:48 AM EDT 08/20/2017 8:49 AM EDT us Jefferson Mckeon MD POINT OF CARE TEST ORDERABLES Fi nal Result Performing Organization Address City/[facility] Co de Phone Number [facility] [address] [place] [address] * ECG AND WAVEFORMS - TELEMETRY (08/20/2017 7:22 AM EDT) ECG INTERPRET NSR [facility] [employer]PECT[employer] APPROVED Yes [facility] 08/20/2017 7:22 AM EDT Narrative [facility] - 08/20/2017 7:42 AM EDT Station B elonged QT ??AL 0.17 ??QRS 0.10 ??RR 1.17 ??QT 0.48 ??QTc 0.44 ??See Clinical Report link for waveform capture us Unknown Provider POINT OF CARE CARDIOLOGY Final Result Performing Organization Address [facility] Co de Phone Number [facility] [address] [place] [address] * ECG AND WAVEFORMS - TELEMETRY (08/20/2017 7:00 AM EDT) ECG INTERPRET Sinus Bradycardia [facility] [employer] INSPECT[employer] APPROVED Yes [facility] 08/20/2017 7:00 AM EDT Narrative [facility] - 08/20/2017 7:58 AM EDT ??AL 0.17 ??QRS 0.05 ??QT 0.48 ??See Clinical Report link for waveform capture us Unknown Provider POINT OF CARE CARDIOLOGY Final Result Performing Organization Address [facility] [[email or web address]] de Phone Number [facility] [address] [place] [address] * ECG AND WAVEFORMS - TELEMETRY (08/20/2017 6:10 AM EDT) ECG INTERPRET Sinus Bradycardia [facility] [employer] INSPECT[employer] APPROVED Yes [facility] 08/20/2017 6:10 AM EDT Narrative [facility] - 08/20/2017 6:22 AM EDT ??See Clinical Report link for waveform capture us Unknown Provider POINT OF CARE CARDIOLOGY Final Result Performing Organization Address [facility] Phone Number [facility] [address] [place] [address] * ECG AND WAVEFORMS - TELEMETRY (08/20/2017 6:10 AM EDT) ECG INTERPRET Sinus Bradycardia [facility] [employer] INSPECT[employer] APPROVED Yes [facility] 08/20/2017 6:10 AM EDT Narrative [facility] - 08/20/2017 6:17 AM EDT Station B ??See Clinical Report link for waveform capture us Unknown Provider POINT OF CARE CARDIOLOGY Final Result Performing Organization Address [facility] de Phone Number [facility] [address] [place] [address] * EK EKG 12 LEAD (08/20/2017 12:05 AM EDT) Anatomical Region Laterality Modality Electrocardiogra phy 08/20/2017 7:32 AM EDT Impressions 08/21/2017 12:14 AM EDT ? Stationary ECG Study ? [place] [facility] ? Interpretive Statements ? SINUS BRADYCARDIA LOW QRS VOLTAGE IN PRECORDIAL LEADS INFERIOR MYOCARDIAL INFARCTION, PROBABLY OLD ANTEROSEPTAL MYOCARDIAL INFARCTION, PROBABLY OLD No acute ST-T wave abnormality Compared to previous EKG, heart rate is slower, no other significant change. Correlate clinically. Electronically Signed On 08-21-2017 0:14:28 EDT by Herminio Avitia MD Narrative Procedure Note Herminio Avitia MD - 08/21/2017 IMPRESSION Stationary ECG Study [place] [facility]y Interpretive Statements SINUS BRADYCARDIA LOW QRS VOLTAGE IN PRECORDIAL LEADS INFERIOR MYOCARDIAL INFARCTION, PROBABLY OLD ANTEROSEPTAL MYOCARDIAL INFARCTION, PROBABLY OLD No acute ST-T wave abnormality Compared to previous EKG, heart rate is slower, no other significantchange. Correlate clinically. Electronically Signed On 08-21-2017 0:14:28 EDT by Herminio Avitia MD us Nasir Yanez MD IMG ECG ORDERABLES Final Result * ECG AND WAVEFORMS - TELEMETRY (08/19/2017 7:19 PM EDT) Pathologist [facility] ECG INTERPRET NSR with PVCs [facility] [employer] INSPECTOR APPROVED Yes [facility] 08/19/2017 7:19 PM EDT Narrative [facility] - 08/19/2017 7:46 PM EDT ??AL 0.15 ??QRS 0.10 ??QT 0.41 ??See Clinical Report link for waveform capture us Unknown Provider POINT OF CARE CARDIOLOGY Final Result Performing Organization Address [facility] [[email or web address]] de Phone Number [facility] [address] [place] [address] * ECG AND WAVEFORMS - TELEMETRY (08/19/2017 7:00 PM EDT) Pathologist [facility] ECG INTERPRET Atrial Fib/Flutter [facility] [employer] INSPECTOR APPROVED Yes [facility] 08/19/2017 7:00 PM EDT Narrative [facility] - 08/19/2017 7:16 PM EDT Station B ??AL 0.13 ??QRS 0.05 ??QT 0.37 ??See Clinical Report link for waveform capture us Unknown Provider POINT OF CARE CARDIOLOGY Final Result Performing Organization Address [facility] de Phone Number [facility] [address] [place] [address] * TROPONIN-T (08/19/2017 6:12 PM EDT) [facility] Troponin-T <0.01 <0.01 ng/mL 08/19/2017 6:45 PM EDT [facility] Blood VENOUS BLOOD / Unknown 08/19/2017 6:12 PM EDT 08/19/2017 6:21 PM EDT [facility] - 08/19/2017 6:45 PM EDT Ingestion of charles doses of biotin (>5 mg/day) taken within 8 hours of drawing blood sample can interfere with this immunoassay test. us Jefferson Mckeon MD CHEMISTRY ORDERABLES Final Resul t Performing Organization Address [facility] [[email or web address]] de Phone Number [facility] [address] [place] [id number] * TROPONIN-T (08/19/2017 2:19 PM EDT) [facility] Troponin-T <0.01 <0.01 ng/mL 08/19/2017 2:48 PM EDT [facility] Blood VENOUS BLOOD / Unknown 08/19/2017 2:19 PM EDT 08/19/2017 2:26 PM EDT Narrative [facility] - 08/19/2017 2:48 PM EDT Ingestion of charles doses of biotin (>5 mg/day) taken within 8 hours of drawing blood sample can interfere with this immunoassay test. us Nasir Yanez MD CHEMISTRY ORDERABLES Final Resu lt Performing Organization Address [facility] Co de Phone Number [facility] [address] [place] [phone] * ECG AND WAVEFORMS - TELEMETRY (08/19/2017 2:10 PM EDT) ECG INTERPRET NSR [facility] [employer] INSPECTOR APPROVED Yes [facility] 08/19/2017 2:10 PM EDT Narrative [facility] - 08/19/2017 2:13 PM EDT Station B ??AL 0.19 ??QRS 0.05 ??QT 0.43 ??See Clinical Report link for waveform capture us Unknown Provider POINT OF CARE CARDIOLOGY Final Result Performing Organization Address [facility] de Phone Number [facility] [address] [place] [id number] * ECG AND WAVEFORMS - TELEMETRY (08/19/2017 2:10 PM EDT) ECG INTERPRET NSR [facility] [employer] INSPECTOR APPROVED Yes [facility] 08/19/2017 2:10 PM EDT Narrative [facility] - 08/19/2017 2:23 PM EDT ??AL 0.19 ??QRS 0.06 ??QT 0.46 ??See Clinical Report link for waveform capture us Unknown Provider POINT OF CARE CARDIOLOGY Final Result Performing Organization Address [facility] Co de Phone Number [facility] [address] [place] [address] * XR CHEST PA AND LATERAL (08/19/2017 12:37 PM EDT) Anatomical Region Laterality Modality Chest Radiographic Whit ging 08/19/2017 12:3 7 PM EDT Impressions 08/19/2017 12:39 PM EDT Stable chest Narrative 08/19/2017 12:39 PM EDT PA AND LATERAL CHEST X-RAY, ??08/19/2017 12:37 PM CLINICAL HISTORY: ??-CHEST PAIN COMPARISON: ??08/01/2017 PROCEDURE COMMENTS: Frontal and lateral views of the chest. FINDINGS: Stable heart size and pulmonary vascularity. No focal pulmonary infiltrates, effusion, or pneumothorax. Degenerative changes in the shoulders. Procedure Note Cory Vallejo MD - 08/19/2017 PA AND LATERAL CHEST X-RAY, 08/19/2017 12:37 PM CLINICAL HISTORY: -CHEST PAIN COMPARISON: 08/01/2017 PROCEDURE COMMENTS: Frontal and lateral views of the chest. FINDINGS: Stable heart size and pulmonary vascularity. No focal pulmonaryinfiltrates, effusion, or pneumothorax. Degenerative changes in the shoulders. IMPRESSION: Stable chest us Nasir Yanez MD IMG DIAGNOSTIC IMAGING ORDERABL ES Final Result * (ABNORMAL) NT PROBNP (08/19/2017 12:01 PM EDT) NT Pro-BNP 452(H) <=319 pg/mL 08/19/2017 1:27 PM EDT [facility] Blood VENOUS BLOOD / Unknown Venipuncture / Unknown 08/19/2017 12:01 PM EDT 08/19/2017 12:03 PM EDT Narrative [facility] - 08/19/2017 1:27 PM EDT An NT pro-BNP level less than 300 pg/mL in any patient, regardless of age, effectively rules out acute CHF with a 99% negative predictive value. us Nasir Yanez MD CHEMISTRY ORDERABLES Final Resu lt [facility] [address] [facility] [place] [address] * (ABNORMAL) BASIC METABOLIC PANEL (08/19/2017 12:01 PM EDT) [facility] Sodium 140 136 - 145 mmol/L 08/19/2017 12:35 PM [facility] Potassium 4.0 3.5 - 5.0 mmol/L 08/19/2017 12:35 PM [facility] Chloride 100 98 - 107 mmol/L 08/19/2017 12:35 PM [facility] Total CO2 28 22 - 29 mmol/L 08/19/2017 12:35 PM [facility] Anion Gap 12 7 - 16 mmol/L 08/19/2017 12:35 PM [facility] Calcium 9.6 8.8 - 10.2 mg/dL 08/19/2017 12:35 PM [facility] Glucose Lvl 191(H) 82 - 100 mg/dL 08/19/2017 12:35 PM [facility] BUN 11 8 - 23 mg/dL 08/19/2017 12:35 PM [facility] Creatinine 1.14 0.51 - 1.30 mg/dL 08/19/2017 12:35 PM [facility] GFR Afr Am 58 mL/min/1.7 3 m2 08/19/2017 12:35 PM [facility] GFR Non Afr Am 50 mL/min/1.7 3 m2 08/19/2017 12:35 PM [facility] Comment: GFR Afr Am [...] VENOUS BLOOD / Unknown Venipuncture / Unknown 08/19/2017 12:01 PM EDT 08/19/2017 12:03 PM EDT Nasir Yanez MD CHEMISTRY ORDERABLES Final [facility] Performing Organization Address [facility] [[email or web address]] de Phone Number [address] [id number] * TROPONIN-T (08/19/2017 12:01 PM EDT) Troponin-T <0.01 <0.01 ng/mL 08/19/2017 12:34 PM EDT [facility] Blood VENOUS BLOOD / Unknown Venipuncture / Unknown 08/19/2017 12:01 PM EDT 08/19/2017 12:03 PM EDT Narrative [facility] - 08/19/2017 12:34 PM EDT Ingestion of charles doses of biotin (>5 mg/day) taken within 8 hours of drawing blood sample can interfere with this immunoassay test. us Nasir Yanez MD CHEMISTRY ORDERABLES Final Resu lt Performing Organization Address [facility] Phone Number [facility] [address] [place], [place] [address] * CBC WITH DIFF (08/19/2017 12:01 PM EDT) WBC 9.9 4.0 - 11.0 x10(3)/mcL 08/19/2017 12:16 PM EDT [facility] RBC 4.48 3.80 - 5.10 x10(6)/mcL 08/19/2017 12:16 PM EDT [facility] Hgb 13.2 12.0 - 15.6 g/dL 08/19/2017 12:16 PM EDT [facility] Hct 39.4 35.7 - 45.9 % 08/19/2017 12:16 PM EDT [facility] MCV 87.9 82.5 - 99.8 fL 08/19/2017 12:16 PM EDT [facility] MCH 29.5 27.0 - 34.3 pg 08/19/2017 12:16 PM EDT [facility] MCHC 33.6 32.1 - 35.3 g/dL 08/19/2017 12:16 PM EDT [facility] RDW 14.6 11.5 - 15.0 % 08/19/2017 12:16 PM EDT [facility] Platelet 183 144 - 423 x10(3)/mcL 08/19/2017 12:16 PM EDT [facility] MPV 9.5 6.8 - 10.8 fL 08/19/2017 12:16 PM EDT [facility] Neut Percent 71.0 % 08/19/2017 12:16 PM EDT [facility] Lymph Percent 20.3 % 08/19/2017 12:16 PM EDT [facility] Hubbard Percent 5.3 % 08/19/2017 12:16 PM EDT [facility] Eos Percent 2.7 % 08/19/2017 12:16 PM EDT [facility] Baso Percent 0.7 % 08/19/2017 12:16 PM EDT [facility] Neut # 7.0 1.8 - 7.7 x10(3)/mcL 08/19/2017 12:16 PM EDT [facility] Lymph # 2.0 0.6 - 4.8 x10(3)/[facility] 08/19/2017 12:16 PM EDT [facility] [place] # 0.5 0.0 - 1.3 x10(3)/[facility] 08/19/2017 12:16 PM EDT [facility] Eos# 0.3 0.0 - 0.5 x10(3)/[facility] 08/19/2017 12:16 PM EDT [facility] Baso # 0.1 0.0 - 0.2 x10(3)/[facility] 08/19/2017 12:16 PM EDT [facility] Blood VENOUS BLOOD / Unknown Venipuncture / Unknown 08/19/2017 12:01 PM EDT 08/19/2017 12:03 PM EDT Nasir Yanez MD HEMATOLOGY ORDERABLES Final Res ult Performing Organization Address [facility]/State/ZIP Co de Phone Number [address] [address] * EK EKG 12 LEAD (08/19/2017 11:50 AM EDT) Anatomical Region Laterality Modality Electrocardiogra phy 08/19/2017 12:0 2 PM EDT Impressions 08/19/2017 12:04 PM EDT ? [facility] Interpretive Statements ? SINUS RHYTHM WITH OCCASIONAL SUPRAVENTRICULAR PREMATURE COMPLEXES LOW QRS VOLTAGE IN PRECORDIAL LEADS INFERIOR MYOCARDIAL INFARCTION, PROBABLY OLD ANTEROLATERAL MYOCARDIAL INFARCTION, PROBABLY OLD NO ??CHANGE Electronically Signed On 08-19-2017 12:04:00 EDT by Kamari Goss MD Narrative Procedure Note Kamari Goss MD - 08/19/[address] ECG Study [facility] [place] Interpretive Statements SINUS RHYTHM WITH OCCASIONAL SUPRAVENTRICULAR PREMATURE COMPLEXES LOW QRS VOLTAGE IN PRECORDIAL LEADS INFERIOR MYOCARDIAL INFARCTION, PROBABLY OLD ANTEROLATERAL MYOCARDIAL INFARCTION, PROBABLY OLD NO CHANGE Electronically Signed On 08-19-2017 12:04:00 EDT by Kamari Goss MD Nasir Yanez MD IMG ECG ORDERABLES Final Result documented in this encounter Visit Diagnoses Diagnosis Chest pain at rest- Primary Chest pain, unspecified Acute chest pain Chest pain, unspecified Chronic diastolic CHF (congestive heart failure) (HCC) History of CVA with residual deficit Essential hypertension Unspecified essential hypertension ASHD (arteriosclerotic heart disease) Coronary atherosclerosis of unspecified type of vessel, nikolski or graft documented in this encounter Administered Medications Inactive Administered Medications - up to 1 most recent administrations Medication Order MAR Action Action Date Dose Rate Site acetaminophen (TYLENOL) suppository 650 mg 650 mg, Rectal, EVERY 4 HOURS PRN, Starting on Francine 08/19/17 at 1406, Until Wed08/20/17 at 1610, Fever, Headaches, Maximum adult dose of acetaminophen is 4000 mg from all sources in 24 hours. acetaminophen (TYLENOL) tablet 650 mg 650 mg, Oral, EVERY 4 HOURS PRN, Starting on Francine 08/19/17 at 1406, Until 08/20/17 at 1610, Fever, Headaches, Maximum adult dose of acetaminophen is 4000 mg from all sources in 24 hours. Given 08/19/2017 3:38 PM EDT 650 mg amLODIPine (NORVASC) tablet 2.5 mg 2.5 mg, Oral, DAILY, First dose on Wed08/19/17 at 1800, Until Discontinued Given 08/20/2017 8:55 AM EDT 2.5 mg ARIPiprazole (ABILIFY) tablet 30 mg 30 mg, Oral, DAILY, First dose on Wed08/19/17 at 1800, Until Discontinued Given 08/20/2017 8:54 AM EDT 30 mg aspirin chewable tablet 81 mg 81 mg, Oral, DAILY, First dose on Wed08/19/17 at 1800, Until Discontinued Given 08/20/2017 8:52 AM EDT 81 mg atorvastatin (LIPITOR) tablet 20 mg 20 mg, Oral, NIGHTLY, First dose on Wed08/19/17 at 2100, Until Discontinued Given 08/19/2017 9:00 PM EDT 20 mg cloNIDine HCl (CATAPRES) tablet 0.1 mg 0.1 mg, Oral, DAILY, First dose on Wed08/19/17 at 1800, Until Discontinued, Hold for SBP <90 Given 08/20/2017 8:54 AM EDT 0.1 mg clopidogrel (PLAVIX) tablet 75 mg 75 mg, Oral, DAILY, First dose on Wed08/19/17 at 1800, Until Discontinued Given 08/20/2017 8:52 AM EDT 75 mg diphenhydrAMINE (BENADRYL) tablet 50 mg 50 mg, Oral, NIGHTLY PRN, Starting on Wed08/19/17 at 2039, Until Wed08/20/17 at 1610, Sleep Given 08/19/2017 8:59 PM EDT 50 mg ferrous sulfate tablet 325 mg 325 mg, Oral, 2 TIMES DAILY WITH MEALS, First dose on Wed08/19/17 at 1800, Until Discontinued Given 08/20/2017 8:52 AM EDT 325 mg fUROsemide (LASix) tablet 20 mg 20 mg, Oral, DAILY, First dose on Wed08/19/17 at 1800, Until Discontinued Given 08/20/2017 8:52 AM EDT 20 mg hydrOXYzine (VISTARIL) capsule 25 mg 25 mg, Oral, 3 TIMES DAILY PRN, Starting on Wed08/19/17 at 1622, Until Wed08/20/17 at 1610, Anxiety Given 08/20/2017 8:53 AM EDT 25 mg insulin glargine (LANTUS) injection 28 Units 28 Units, Subcutaneous, NIGHTLY, First dose on Wed08/19/17 at 2100, Until Discontinued, Do not mix with other insulins Waste Sort Code = BKC Given 08/19/2017 9:00 PM EDT 28 Units Abdominal Tissue isosorbide mononitrate (IMDUR) CR tablet 60 mg 60 mg, Oral, DAILY, First dose on Wed08/19/17 at 1800, Until Discontinued Given 08/20/2017 8:54 AM EDT 60 mg lamoTRIgine (LaMICtal) tablet 25 mg 25 mg, Oral, 2 TIMES DAILY, First dose on Wed08/19/17 at 2100, Until Discontinued Given 08/20/2017 8:53 AM EDT 25 mg lisinopril (PRINIVIL;ZESTril) tablet 20 mg 20 mg, Oral, DAILY, First dose on Wed08/19/17 at 1800, Until Discontinued, +++ACEI Medication+++ Given 08/20/2017 8:54 AM EDT 20 mg loperamide (IMODIUM) capsule 2 mg 2 mg, Oral, 3 TIMES DAILY PRN, Starting on Wed08/19/17 at 1621, Until Wed08/20/17 at 1610, Diarrhea, After each loose stool - Max 16 mg (8 caps) per 24 hours. Given 08/20/2017 8:55 AM EDT 2 mg metoprolol (LOPRESSOR) tablet 75 mg 75 mg, Oral, 2 TIMES DAILY, First dose on Wed08/19/17 at 2100, Until Discontinued Given 08/20/2017 8:52 AM EDT 75 mg miconazole (MICATIN) 2 % powder Topical, EVERY 12 HOURS SCHEDULED (2 times per day), 84 doses, First dose on Wed08/19/17 at 2100, Last dose on Wed09/30/17 at 0900, Application site: under abd folds/ananya area Given 08/20/2017 8:58 AM EDT miconazole (MICATIN) 2 % powder Topical, PRN, Starting on Wed08/19/17 at 1805, Until Wed08/20/17 at 1610, Wound Care, Application site: under abd folds/ananya area nitroGLYCERIN (NITROGLYN) 2 % ointment 1 Inch 1 Inch, Topical, ONCE, 1 dose, On Francine 08/19/17 at 1215, Wipe off old dose, apply to chest wall Patch Applied 08/19/2017 1:07 PM EDT 1 Inch ondansetron (ZOFRAN) injection 4 mg 4 mg, Intravenous, EVERY 6 HOURS PRN, Starting on Wed08/19/17 at 1406, Until Wed08/20/17 at 1610, Nausea ondansetron (ZOFRAN) tablet 4 mg 4 mg, Oral, EVERY 6 HOURS PRN, Starting on Wed08/19/17 at 1406, Until Wed08/20/17 at 1610, Nausea ranolazine (RANEXA) SR tablet 1,000 mg 1,000 mg, Oral, EVERY 12 HOURS SCHEDULED (2 times per day), First dose on [facility] 08/19/17 at 2100, Until Discontinued Given 08/20/2017 8:54 AM EDT 1,000 mg sertraline (ZOLOFT) tablet 200 mg 200 mg, Oral, DAILY, First dose on [facility] 08/19/17 at 1800, Until Discontinued Given 08/20/2017 8:54 AM EDT 200 mg sucralfate (CARAFATE) 100 mg/mL suspension 1 g 1 g, Oral, 4 TIMES DAILY BEFORE MEALS & NIGHTLY, First dose on [facility] 08/19/17 at 1800, Until Discontinued, Hold enteral feeding 1 hour before and 1 hour after administration Given 08/20/2017 6:01 AM EDT 1 g traZODone (DESYREL) tablet 50 mg 50 mg, Oral, NIGHTLY, First dose on [facility] 08/19/17 at 2100, Until Discontinued Given 08/19/2017 9:00 PM EDT 50 mg documented in this encounter Historical Medications * This list may reflect changes made after this encounter. Saccharomyces boulardii (FLORASTOR) 250 mg Oral Capsule Take 250 mg by mouth 2 times daily. sucralfate (CARAFATE) 100 mg/mL Oral Suspension Take 1 g by mouth 4 times daily (before meals and nightly). FIBER CHOICE ORAL Take 325 mg by mouth 2 times daily. 10/25/2017 added in this encounter Active and Recently Administered Medications Times are shown in EDT. Scheduled Medication Order 08/18/2017 08/19/2017 08/20/2017 amLODIPine (NORVASC) tablet 2.5 mg 2.5 mg, Oral, DAILY, First dose on Francine 08/19/17 at 1800, Until Discontinued 1800 (Not Given - Provider: Evie Casiano RN - Reason: Prior to Arrival) 0855 (Given - Provider: Tesha May, ROLF) ARIPiprazole (ABILIFY) tablet 30 mg 30 mg, Oral, DAILY, First dose on Francine 08/19/17 at 1800, Until Discontinued 1800 (Not Given - Provider: Evie Casiano RN - Reason: Prior to Arrival) 0854 (Given - Provider: Tesha May RN) aspirin chewable tablet 81 mg 81 mg, Oral, DAILY, First dose on Francine 08/19/17 at 1800, Until Discontinued 1800 (Not Given - Provider: Evie Casiano RN - Reason: Prior to Arrival) 0852 (Given - Provider: Tesha May RN) atorvastatin (LIPITOR) tablet 20 mg 20 mg, Oral, NIGHTLY, First dose on Francine 08/19/17 at 2100, Until Discontinued 2100 (Given - Provider: Barron Finley RN) cloNIDine HCl (CATAPRES) tablet 0.1 mg 0.1 mg, Oral, DAILY, First dose on Francine 08/19/17 at 1800, Until Discontinued, Hold for SBP <90 1800 (Not Given - Provider: Evie Casiano RN - Reason: Prior to Arrival) 0854 (Given - Provider: Tesha May RN) clopidogrel (PLAVIX) tablet 75 mg 75 mg, Oral, DAILY, First dose on Francine 08/19/17 at 1800, Until Discontinued 1800 (Not Given - Provider: Evie Casiano RN - Reason: Prior to Arrival) 0852 (Given - Provider: Tesha May RN) ferrous sulfate tablet 325 mg 325 mg, Oral, 2 TIMES DAILY WITH MEALS, First dose on Francine 08/19/17 at 1800, Until Discontinued 1829 (Given - Provider: Evie Casiaon RN) 0852 (Given - Provider: Tesha May RN) fUROsemide (LASix) tablet 20 mg 20 mg, Oral, DAILY, First dose on Francine 08/19/17 at 1800, Until Discontinued 1800 (Not Given - Provider: Evie Casiano RN - Reason: Prior to Arrival) 0852 (Given - Provider: Tesha May, ROLF) insulin glargine (LANTUS) injection 28 Units 28 Units, Subcutaneous, NIGHTLY, First dose on Wed08/19/17 at 2100, Until Discontinued, Do not mix with other insulins Waste Sort Code = [facility] 2099 (Given - Provider: Barron Finley RN) isosorbide mononitrate (IMDUR) CR tablet 60 mg 60 mg, Oral, DAILY, First dose on Francine 08/19/17 at 1800, Until Discontinued 1799 (Not Given - Provider: Evie Casiano RN - Reason: Prior to Arrival) 0854 (Given - Provider: Tesha aMy RN) lamoTRIgine (LaMICtal) tablet 25 mg 25 mg, Oral, 2 TIMES DAILY, First dose on Wed08/19/17 at 2100, Until Discontinued 2058 (Given - Provider: Barron Finley RN) 0853 (Given - Provider: Tesha May RN) lisinopril (PRINIVIL;ZESTril) tablet 20 mg 20 mg, Oral, DAILY, First dose on Francine 08/19/17 at 1800, Until Discontinued, +++ACEI Medication+++ 1800 (Not Given - Provider: Evie Casiano RN - Reason: Prior to Arrival) 0854 (Given - Provider: Tesha May RN) metoprolol (LOPRESSOR) tablet 75 mg 75 mg, Oral, 2 TIMES DAILY, First dose on Wed08/19/17 at 2100, Until Discontinued 2099 (Given - Provider: Barron Finley RN) 0852 (Given - Provider: Tesha May RN) miconazole (MICATIN) 2 % powder Topical, EVERY 12 HOURS SCHEDULED (2 times per day), 84 doses, First dose on Wed08/19/17 at 2100, Last dose on Wed09/30/17 at 0900, Application site: under abd folds/ananya area 2099 (Given - Provider: Barron Finley RN) 0858 (Given - Provider: Tesha May RN) nitroGLYCERIN (NITROGLYN) 2 % ointment 1 Inch (COMPLETED) 1 Inch, Topical, ONCE, 1 dose, On Wed08/19/17 at 1215, Wipe off old dose, apply to chest wall 1307 (Patch Applied - Provider: Patricia Stapleton RN) ranolazine (RANEXA) SR tablet 1,000 mg 1,000 mg, Oral, EVERY 12 HOURS SCHEDULED (2 times per day), First dose on Wed08/19/17 at 2100, Until Discontinued 2058 (Given - Provider: Barron Finley RN) 0854 (Given - Provider: Tesha May, ROLF) sertraline (ZOLOFT) tablet 200 mg 200 mg, Oral, DAILY, First dose on Wed08/19/17 at 1800, Until Discontinued 1800 (Not Given - Provider: Evie Casiano RN - Reason: Prior to Arrival) 0854 (Given - Provider: Tesha May, ROLF) sucralfate (CARAFATE) 100 mg/mL suspension 1 g 1 g, Oral, 4 TIMES DAILY BEFORE MEALS & NIGHTLY, First dose on Wed08/19/17 at 1800, Until Discontinued, Hold enteral feeding 1 hour before and 1 hour after administration 1829 (Given - Provider: Evie Casiano RN)2100 (Given - Provider: Barron Finley RN) 0601 (Given - Provider: Barron Finley RN)1030 (Not Given - Provider: Tesha May RN - Reason: Patient/family declined) traZODone (DESYREL) tablet 50 mg 50 mg, Oral, NIGHTLY, First dose on Wed08/19/17 at 2100, Until Discontinued 2100 (Given - Provider: Barron Finley RN) PRN Medication Order 08/18/2017 08/19/2017 08/20/2017 acetaminophen (TYLENOL) suppository 650 mg(Linked Group 1) 650 mg, Rectal, EVERY 4 HOURS PRN, Starting on Wed08/19/17 at 1406, Until Wed08/20/17 at 1610, Fever, Headaches, Maximum adult dose of acetaminophen is 4000 mg from all sources in 24 hours. 1538 (See Alternative - Provider: Evie Casiano RN) acetaminophen (TYLENOL) tablet 650 mg(Linked Group 1) 650 mg, Oral, EVERY 4 HOURS PRN, Starting on Wed08/19/17 at 1406, Until Wed08/20/17 at 1610, Fever, Headaches, Maximum adult dose of acetaminophen is 4000 mg from all sources in 24 hours. 1538 (Given - Provider: Evie Casiano RN) diphenhydrAMINE (BENADRYL) tablet 50 mg 50 mg, Oral, NIGHTLY PRN, Starting on Wed08/19/17 at 2039, Until Wed08/20/17 at 1610, Sleep 2058 (Given - Provider: Barron Finley RN) hydrOXYzine (VISTARIL) capsule 25 mg 25 mg, Oral, 3 TIMES DAILY PRN, Starting on Wed08/19/17 at 1622, Until Wed08/20/17 at 1610, Anxiety 1836 (Given - Provider: Evie Casiano RN) 0853 (Given - Provider: Tesha May RN) loperamide (IMODIUM) capsule 2 mg 2 mg, Oral, 3 TIMES DAILY PRN, Starting on Wed08/19/17 at 1621, Until Wed08/20/17 at 1610, Diarrhea, After each loose stool - Max 16 mg (8 caps) per 24 hours. 0855 (Given - Provid er: Tesha May RN) miconazole (MICATIN) 2 % powder Topical, PRN, Starting on Wed08/19/17 at 1805, Until Wed08/20/17 at 1610, Wound Care, Application site: under abd folds/ananya area ondansetron (ZOFRAN) injection 4 mg(Linked Group 2) 4 mg, Intravenous, EVERY 6 HOURS PRN, Starting on Wed08/19/17 at 1406, Until Wed08/20/17 at 1610, Nausea ondansetron (ZOFRAN) tablet 4 mg(Linked Group 2) 4 mg, Oral, EVERY 6 HOURS PRN, Starting on Wed08/19/17 at 1406, Until Wed08/20/17 at 1610, Nausea Linked Groups Order Group 1: acetaminophen (TYLENOL) tablet 650 mgJump to med 650 mg, Oral, EVERY 4 HOURS PRN, Starting on Wed08/19/17 at 1406, Until Wed08/20/17 at 1610, Fever, Headaches, Maximum adult dose of acetaminophen is 4000 mg from all sources in 24 hours. Or acetaminophen (TYLENOL) suppository 650 mgJump to med 650 mg, Rectal, EVERY 4 HOURS PRN, Starting on Francine 08/19/17 at 1406, Until Wed08/20/17 at 1610, Fever, Headaches, Maximum adult dose of acetaminophen is 4000 mg from all sources in 24 hours. Group 2: ondansetron (ZOFRAN) tablet 4 mgJump to med 4 mg, Oral, EVERY 6 HOURS PRN, Starting on Francine 08/19/17 at 1406, Until Wed08/20/17 at 1610, Nausea Or ondansetron (ZOFRAN) injection 4 mgJump to med 4 mg, Intravenous, EVERY 6 HOURS PRN, Starting on Francine 08/19/17 at 1406, Until Wed08/20/17 at 1610, Nausea documented in this encounter Orders Medications Ordered That Gaurav ht Not Have Been Administered Count Last Ordered Date First Ordered Date acetaminophen (TYLENOL) suppository 650 mg 1 08/19/2017 miconazole (MICATIN) 2 % powder 1 8 nitroGLYCERIN (NITROGLYN) 2 % ointment 1 Inch 2 08/19/2017 ondansetron (ZOFRAN) injection 4 mg 1 08/19 ondansetron (ZOFRAN) tablet 4 mg 1 08/20/19 18 Nursing Count Last Ordered Date First Orde red Date ADMISSION 1 08/19/2017 ED ENTER ADMISSION ORDER 08/19/2017 Transfer Count Last Ordered Date First Orde red Date BED REQUEST 08/19/2017 documented in this encounter Additional Health Concerns Assessment Noted Time A fall risk assessment has been complete d for the patient 04/21/2017 10:52 AM EST documented as of this encounter Care Teams Car Carder Relationship Specialty Start Date End Date Sharee Segovia APRN [address] [place], [place] [address] PCP - General Nurse Practitioner-Family 09/21/16 Katheryn Allen, RN Health Advocate Registered Nurse 08/04/17 09/14/17 Khalida Hunter, KETTLE SKIMMER, COS Apn 08/09/17 08/29/17 documented as of this encounter
--- OUTSIDE RECORDS SUMMARY | 2024-02-16 14:53 | XMS_ITS | Encounter Summary ---
Author Organization [place] [address] Care Team Providers Care Cutter First Name Role Phone Sharee Segovia APRN Primary Care Provider [phone] Katheryn Allen RN Unavailable Unavailable Khalida Hunter, COS Unavailable Unavai lable Encounter Details Date Type Department Care Team (Late st Contact Info) Description 08/10/2017 Social Work SEP Care Managment [address] Appointment [place] [address] Khalida Hunter, MARIAELENA, COS Social History Tobacco Use Types Packs/Day Years [...] Author No 08/09/2017 9:08 AM EDT Birdie Kyle, ROSIA * Because of a physical, mental or [...] Author Yes 08/09/2017 9:08 AM EDT Birdie Kyle, THEO documented in this encounter Miscellaneous Notes * Telephone Encounter - Khalida Hunter LSW - 08/10/2017 12:13 PM EDT 08/10/17: SW spoke to pt. Pt stated she would like to move to [place] to live closer to her 2 children and 2 grandchildren. Pt stated she would like to move for 2 reasons: personal and getting old/wants to be home. SW asked pt if she felt safe where she is and pt stated she does feel safe. SW asked if she discussed moving with her nurse or a piano case and bench assembler there and pt stated yes, but theydont want her to move. Pt stated she has spoken to her son Luis Manuel about moving, but Luis Manuel feels she should stay where she is. Pt agreed for SW to contact Luis Manuel to discuss further. Pt is not sure where she would like to live in [place], but knows not on the [place] and in an assisted living. SW asked pt if the assisted living she is currently residing in paid privately or through Medicaid. Pt stated through Medicaid. Pt agreed for SW to speak to her son Luis Manuel, as well as her nurse Amara about moving. Pt stated Amarais off today, but will be in tomorrow. SW to contact Luis Manuel and f/u with Amara tomorrow. 08/10/17: SW tried to contact pts son Luis Manuel, but no answer. SW left vm. documented in this encounter Plan of Treatment Not on file documented as of this encounter Goals Goal Patient Goal Type Associated Problems Recent Progress Patient-Stated? Author Blood Pressure < 140/90 Blood Pressure 124/52(2018 4:00 PM EDT) No Silva Mathew S, RMA BMI (Calculated) < 30 General 35.6(10/06/19 4:56 PM EDT) No Silva Mathew S, RMA Maintain a healthy diet, exercise regularly [...] documented as of this encounter Care Teams Cutter First Relationship Specialty Start Date End Date Sharee Segovia APRN [address] [place], [place] [phone] PCP - General Nurse Practitioner-Family 09/21/16 Katheryn Allen RN Health Advocate Registered Nurse 08/04/17 09/14/17 Khalida Hunter LSW, COS Shoe Repair Cobbler 08/09/17 08/29/17 documented as of this encounter
--- OUTSIDE RECORDS SUMMARY | 2024-02-16 14:53 | XMS_ITS | Encounter Summary ---
Author Organization [place] [address] Care Team Providers Care Auto Body Repair Estimator Name Role Phone Sharee Segovia APRN Primary Care Provider [phone] Katheryn Allen RN Unavailable Unavailable TribbeKhalida TOPOGRAPHICAL ENGINEER, COS Unavailable Unavai lable Reason for Referral * Consultation (Routine) - Closed Specialty Diagnoses / Procedures Referred By Contac t Referred To Contact Gastroenterology Diagnoses Positive occult stool blood test Sharee Segovia APRN [address] [place] [address] Phone: tel: fax: Danial Erickson DO Phone: tel: fax: Referral ID Status Reason Start Date Expiration Date V isits Requested Visits Authorized [id number] Closed Specialty Services Required 08/12/2017 08/12/2018 1 99 Question Answer Is this referral for colon cancer screening? Yes Comments Pos stool for blood on FIT test Encounter Details Date Type Department Care Team (Late st Contact Info) Description 08/12/2017 Orders Only ANNA PATRICK [address] [place] [phone] Sharee Segovia APRN [address] [place] [address] Positive occult stool blood test (Primary Dx) Social History Tobacco Use Types [...] Birdie Wilkinson RMA documented in this encounter Plan of Treatment [...] 35.6(10/06/19 4:56 PM EDT) No Silva Mathew S RMA Maintain a healthy diet, exercise regularly and maintain an ideal body weight General No Silva Mathew S, RMA HEMOGLOBIN A1C < 7.0 Result Component 6.6( 9 9:49 AM EST) No Silva Mathew S RMA documented as of this encounter Visit Diagnoses Diagnosis Positive occult stool blood test- Primary Nonspecific abnormal finding in stool contents documented in this encounter Additional Health Concerns Assessment Noted Time A fall risk assessment has been complete d for the patient 04/21/2017 10:52 AM EST documented as of this encounter Care Teams Auto Body Repair Estimator Relationship Specialty Start Date End Date Sharee Segovia APRN [address] [place] [phone] PCP - General Nurse Practitioner-Family 09/21/16 Katheryn Allen, ROLF Health Advocate Registered Nurse 08/04/17 09/14/17 Khalida Hunter LSW, COS Conciliation Court Judge 08/09/17 08/29/17 documented as of this encounter
--- OUTSIDE RECORDS SUMMARY | 2024-02-16 14:53 | XMS_ITS | Encounter Summary ---
Author Organization [place] [address] Care Team Providers Care Film Composer Name Role Phone Sharee Segovia APRN Primary Care Provider [phone] Katheryn Allen RN Unavailable Unavailable Khalida Hunter WORKERS COMPENSATION ANALYST, COS Unavailable Unavai lable Encounter Details Date Type Department Care Team (Late st Contact Info) Description 08/09/2017 Social Work SEP Quality Transformation [address] [place] [address] Jesica Humphrey RN Social History Tobacco Use Types Packs/Day Years [...] Birdie Kyle RMA documented in this encounter Miscellaneous Notes * Telephone Encounter - Khalida Hunter LSW - 08/09/2017 2:08 PM EDT 08/09/17: SW spoke to pts nurse, Amara, who advised pt is typically at the [facility] between 8-2. Pt was at her house currently and will be back over in the morning after 8. Amara advised for SW to call back tomorrow morning. * Telephone Encounter - Jesica Francisco RN - 08/09/2017 11:58 AM EDT independent distributor received a referral from BRUNA/ to follow up on Insert from referral note (Lives at [facility] in [place], wants to get relocated to a similar location in [place]. Had multiple health problems and psych history, needs assistance with meds and personal care). RN assignedcase to Khalida Hunter. documented in this encounter Plan of Treatment [...] documented as of this encounter Care Teams Film Composer Relationship Specialty Start Date End Date Sharee Segovia APRN [address] [place] [id number] PCP - General Nurse Practitioner-Family 09/21/16 Katheryn Allen, ROLF Health Advocate Registered Nurse 08/04/17 09/14/17 Khalida Hunter LSW, COS Car Escort 08/09/17 08/29/17 documented as of this encounter
--- OUTSIDE RECORDS SUMMARY | 2024-02-16 14:53 | XMS_ITS | Encounter Summary ---
Author Organization [place] [address] Care Team Providers Care Marine Equipment Research Engineer Name Role Phone Sharee Segovia APRN Primary Care Provider [phone] Reason for Visit * Reason Comments Chest Pain pt given 3 nitro bef ore EMS called. EMS gave pt 3 nitro, 3x81mg ASA (pt takes 1x81mg ASA daily), 50mcg of fentanyl, 4mg zofran. * Auth/Cert/Inpt Specialty Diagnoses / Procedures Referred By Contac t Referred To Contact Diagnoses Hypotension due to drugs Chest pain, unspecified type Referral ID Status Reason Start Date Expiration Date Visits Re quested Visits Authorized [id number] 1 1 Encounter Details Date Type Department Care Team (Late st Contact Info) Description 09/20/2017 9:33 PM EDT - 09/21/2017 2:25 PM EDT Emergency EDG 6D [facility] [place] [address] Elizabeth Martin MD [address] [place] [address] [place] [address] Evie Adames MD [address] [place] [address] [place] [address] Chest pain, unspecified type (Primary Dx); Hypotension due to drugs Discharge Disposition: Home or Self Care Social [...] Sign Reading Time Taken Comments Blood Pressure 127/73 09/21/2017 11:10 AM EDT Pulse 52 09/21/2017 11:10 AM EDT Temperature 36.7 ??C (98 ??F) 09/21/2017 11: 10 AM EDT Respiratory Rate 16 09/21/2017 11:1 0 AM EDT Oxygen Saturation 98% 09/21/2017 11: 10 AM EDT Inhaled Oxygen Concentration - - Weight 106.9 kg (235 lb 11.2 oz) 09/21/2017 2:10 AM EDT Height 174 cm (5' 8.5 ) 09/20/2017 9:47 PM EDT Body Mass Index 35.32 09/20/2017 9:47 PM EDT documented in this encounter Functional [...] documented in this encounter Discharge Summaries * Ernie Pizano MD - 09/21/2017 9:33 AM EDT [facility] Discharge Summary Patient Name: Faby Palm : 1950 Admit Date: 09/20/2017 Discharge Date: 09/21/2017 Admitting Physician: Evie Adames MD Discharging Physician: Ernie Pizano MD Reason for Hospitalization: Active Hospital Problems ??? *Chest pain at rest--pt with recurrent CP--now resolved. troponins negative and EKG without acute changes Recent angio in 07/2017 as above --fele to have stable coronary anatomy per Card--continues cardiac meds Chest xray negative Labs unrevealing Possible GERD?--given sxs with lying down ---add Protonix ? Priority: Medium ??? Schizoaffective disorder, depressive type (HCC) ? Priority: Medium ??? 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 Priority: Medium ??? S/P ablation of atrial flutter--pt with sinus bradycardia --decrease metoprolol to 25 mg BID ? Priority: Medium ??? Chronic diastolic CHF (congestive heart failure) (HCC) ? Priority: Medium--cont Lasix ??? ASHD (arteriosclerotic heart disease)--as above with recent angio 07/2017 ? Priority: Medium ? Will add Protonix for possible GERD as above Reduce Lopressor Ok to d/c to home with outpt f/u Brief Hospital Summary: 67 yo WF admitted with chest pain which she states began last PM when she lied down to go to bed. Pain was non-exertional and sharp. She took several NTG SL which she states were nasty and only helped a little Pain now gone and wants to eat. No ab pain, N/V ?? Pt with hx of CAD with angio on 07/25/17 with ----Card Cath 07/25/17: ?? Ost RCA lesion 60% stenosed. ?? Mid RCA lesion 40% stenosed. ?? Mid LAD lesion 50% stenosed. Significant but not clearly flow limiting dz Ostial RCA of 50-70% - difficult to image due to angulation with FFR of 0.92 Mid LAD appearing 50% with FFR of 0.82 Normal LVEDP ?? Pt was here in late July 2017 for CP and seen by Card at time --not felt to need further cardiac w/u. ?? Pt was hypotensive in the Ed last PM--prob due to several doses of NTG--now improved at 118/56. Pt bradycardic with pulse in the 40-50s which appears to be somewhat chronic. Pt's CP resolved, troponins and EKG were unrevealing. Protonix added. Ischemic w/u not pursued as pt just had angio within the past 1-2 months. Her metoprolol was decreased to 25 mg BID due to bradycardia. Glipizide stopped as doesn't appear to be needed --pt on Lantus and metformin. Clonidine stopped as BP on the low side. ?? Consultants: none Discharge Exam: Vitals: 09/21/17 0726 BP: 118/56 Pulse: 51 Resp: 18 Temp: 98.1 ??F (36.7 ??C) SpO2: 96% See Progress Note Correct Full Discharge Med List: Medication List START taking these medications pantoprazole 40 mg Tbec Dose: 40 mg Qty: 30 Tab Refills: 2 Commonly known as: PROTONIX 40 mg, Oral, DAILY CHANGE how you take these medications insulin glargine 100 unit/mL Soln Qty: 10 mL Refills: 2 Commonly known as: LANTUS 30 units sq nightly What changed: ?? how much to take ?? when to take this ?? additional instructions metoprolol 25 mg Tab Dose: 25 mg Qty: 60 Tab Refills: 2 Commonly known as: LOPRESSOR 25 mg, Oral, 2 TIMES DAILY What changed: ?? medication strength ?? [...] LIPITOR TAKE ONE TABLET BY MOUTH NIGHTLY clopidogrel 75 mg Tab Dose: 75 mg [...] known as: LASix 20 mg, Oral, DAILY isosorbide mononitrate 60 mg Tb24 Qty: 30 Tab Refills: 1 Commonly known as: IMDUR TAKE ONE TABLET BY MOUTH ONCE DAILY lamoTRIgine 25 mg Tab Dose: 25 mg Qty: 60 Tab Refills: 0 Commonly known as: LaMICtal 25 mg, Oral, 2 TIMES DAILY loperamide 2 mg Cap Dose: 2 mg [...] known as: DESYREL 50 mg, Oral, NIGHTLY STOP taking these medications cloNIDine HCl 0.1 mg Tab Commonly known as: CATAPRES glipiZIDE 10 mg Tab Commonly known as: GLUCOTROL lisinopril 20 mg Tab Commonly known as: PRINIVIL;ZESTril Where to Get Your Medications These medications were sent to [id number] [place] [address] - [address] [facility] [phone] [address] [facility] [address] ?? aspirin 81 mg Chew ?? metoprolol 25 mg Tab ?? pantoprazole 40 mg Tbec Condition at Discharge: good Disposition: Home Follow-up: Sharee Segovia ARNP [address] [place] [address] In 3 days Ernie Pizano MD 09/21/2017 documented in this encounter Discharge Instructions * Discharge Instructions* Payton Lemus RN - 09/21/2017 10:03 AM EDT Images from the original note were not included. Angina Pectoris Angina pectoris, often called angina, is extreme discomfort in the chest, neck, or arm. This is caused by a lack of blood in the middle and thickest layer of the heart wall (myocardium). There are four types of angina: ?? Stable angina. Stable angina usually occurs in episodes of predictable frequency and duration. It is usually brought on by physical activity, stress, or excitement. Stable angina usually lasts a few minutes and can often be relieved by a medicine that you place under your tongue. This medicine is called sublingual nitroglycerin. ?? Unstable angina. Unstable angina can occur even when you are doing little or no physical activity. It can even occur while you are sleeping or when you are at rest. It can suddenly increase in severity or frequency. It may not be relieved by sublingual nitroglycerin, and it can last up to 30 minutes. ?? Microvascular angina. This type of angina is caused by a disorder of tiny blood vessels called arterioles. Microvascular angina is more common in women. The pain may be more severe and last longerthan other types of angina pectoris. ?? Prinzmetal or variant angina. This type of angina pectoris is rare and usually occurs when you are doing little or no physical activity. It especially occurs in the merchandise collector hours. What are the causes? Atherosclerosis is the cause of angina. This is the buildup of fat and cholesterol (plaque) on the inside of the arteries. Over time, the plaque may narrow or block the artery, and this will lessen blood flow to the heart. Plaque can also become weak and break off within a coronary artery to form aclot and cause a sudden blockage. What increases the risk? Risk factors common to both men and women include: ?? High cholesterol levels. ?? High blood pressure (hypertension). ?? Tobacco use. ?? Diabetes. ?? Family history of angina. ?? Obesity. ?? Lack of exercise. ?? A diet high in saturated fats. Women are at greater risk for angina if they are: ?? Over age 55. ?? Postmenopausal. What are the signs or symptoms? Many people do not experience any symptoms during the early stages of angina. As the condition progresses, symptoms common to both men and women may include: ?? Chest pain. ?? The pain can be described as a crushing or squeezing in the chest, or a tightness, pressure, fullness, or heaviness in the chest. ?? The pain can last more than a few minutes, or it can stop and recur. ?? Pain in the arms, neck, jaw, or back. ?? Unexplained heartburn or indigestion. ?? Shortness of breath. ?? Nausea. ?? Sudden cold sweats. ?? Sudden light-headedness. Many women have chest discomfort and some of the other symptoms. However, women often have different (atypical) symptoms, such as: ?? Fatigue. ?? Unexplained feelings of nervousness or anxiety. ?? Unexplained weakness. ?? Dizziness or fainting. Sometimes, women may have angina without any symptoms. How is this diagnosed? Tests to diagnose angina may include: ?? ECG (electrocardiogram). ?? Exercise stress test. This looks for signs of blockage when the heart is being exercised. ?? Pharmacologic stress test. This test looks for signs of blockage when the heart is being stressed with a medicine. ?? Blood tests. ?? Coronary angiogram. This is a procedure to look at the coronary arteries to see if there is any blockage. How is this treated? The treatment of angina may include the following: ?? Healthy behavioral changes to reduce or control risk factors. ?? Medicine. ?? Coronary stenting.??A stent helps to keep an artery open. ?? Coronary angioplasty. This procedure widens a narrowed or blocked artery. ?? Coronary artery??bypass surgery. This will allow your blood to pass the blockage (bypass) to reach your heart. Follow these instructions at home: ?? Take medicines only as directed by your health care provider. ?? Do not take the following medicines unless your health care provider approves: ?? Nonsteroidal anti-inflammatory drugs (NSAIDs), such as ibuprofen, naproxen, or celecoxib. ?? Vitamin supplements that contain vitamin A, vitamin E, or both. ?? Hormone replacement therapy that contains estrogen with or without progestin. ?? Manage other health conditions such as hypertension and diabetes as directed by your health careprovider. ?? Follow a heart-healthy diet. A dietitian can help to educate you about healthy food options and changes. ?? Use healthy cooking methods such as roasting, grilling, broiling, baking, poaching, steaming, orstir-frying. Talk to a dietitian to learn more about healthy cooking methods. ?? Follow an exercise program approved by your health care provider. ?? Maintain a healthy weight. Lose weight as approved by your health care provider. ?? Plan rest periods when fatigued. ?? Learn to manage stress. ?? Do not use any tobacco products, including cigarettes, chewing tobacco, or electronic cigarettes. If you need help quitting, ask your health care provider. ?? If you drink alcohol, and your health care provider approves, limit your alcohol intake to no more than 1 drink per day. One drink equals 12 ounces of beer, 5 ounces of wine, or 1?? ounces of hardliquor. ?? Stop illegal drug use. ?? Keep all follow-up visits as directed by your health care provider. This is important. Get help right away if: ?? You have pain in your chest, neck, arm, jaw, stomach, or back that lasts more than a few minutes, is recurring, or is unrelieved by taking sublingual??nitroglycerin. ?? You have profuse sweating without cause. ?? You have unexplained: ?? Heartburn or indigestion. ?? Shortness of breath or difficulty breathing. ?? Nausea or vomiting. ?? Fatigue. ?? Feelings of nervousness or anxiety. ?? Weakness. ?? Diarrhea. ?? You have sudden light-headedness or dizziness. ?? You faint. These symptoms may represent a serious problem that is an emergency. Do not wait to see if the symptoms will go away. Get medical help right away. Call your local emergency services (911 in the [place] Do not drive yourself to the hospital. This information is not intended to replace advice given to you by your health care provider. Make sure you discuss any questions you have with your health care provider. Document Released: 02/22/2006 Document Revised: 08/05/2016 Document Reviewed: 06/26/2014 [employer] Patient Education ?? 2017 [employer]. documented in this encounter Medications at Time [...] by mouth daily. 30 Tab 2 09/21/2017 Saccharomyces boulardii (FLORASTOR) 250 mg Oral Capsule [...] Refills Last Filled Start Date End Date aspirin (ASPIRIN) 81 mg Oral Tablet, Chewable Take 1 Tab by mouth daily. 30 Tab 11 09/21/2017 pantoprazole (PROTONIX) 40 mg Oral Tablet, Delayed Release (E.C.) Take 1 Tab by mouth daily. 30 Tab 2 09/21/2017 metoprolol (LOPRESSOR) 25 mg Oral Tablet Take 1 Tab by mouth 2 times daily. 60 Tab 2 09/22/2017 10/25/2017 documented in this encounter Discharge Disposition Disposition Code Departure Means Destination Home or Self Jail documented in this encounter Progress Notes * Payton Lemus RN - 09/21/2017 2:10 PM EDT Discharge instructions given to pt and encouraged to give paperwork to Nurse Amara at facility. Transportation is here waiting and pt being transported by wheelchair to main entrance. * Janeen Jansen RN - 09/21/2017 11:34 AM EDT 09/21/17 1131 Final Note Actual Discharge Plan 09/21/17 CC FINAL NOTE reviewed chart. Noted pt to be dc'd this date. Transport via [facility] to warp picker at Entrance 3A at 1600. [place] at [facility] aware of pt returning today. Nurse Mila aware of DC PLAN CC SIGNING OFF * Payton Lemus RN - 09/21/2017 10:00 AM EDT Called Amara at [facility] at [phone] and updated pt home med list and also gave reportto her about pt since pt is coming back home today. Amara gave nurse joshua Curiel's transportation number and nurse left message with joshua Conley to set up transportation for pt to return back home. Will continue to monitor. * Mya Arroyo RN - 09/21/2017 7:35 AM EDT Attempted to call [facility] to confirm meds without an answer, hopefully day shift will attempt later. * Mya Arroyo RN - 09/21/2017 4:08 AM EDT New admit into 6427 with CP, from [facility], pt A&Ox3, pt not really experiencing CP now, pt 1xa with walker and gait belt, was little unsteady, but tolerated well, Pt is unaware of her meds, the facility was called with no answer, it will be contact in the morning again to clarify meds. Skin assessment done with Jadon Reilly RN, pt skin is excoriated in ananya- area, old R knee scar, no open areas noted, coccyx c/d/i, bed alarm on, call light within reach, will cont to monitor. * Mya Arroyo RN - 09/21/2017 2:25 AM EDT TT informed RN pt HR 37, pt back to bed from bathroom, pt asymptomatic. Call light within reach, will cont to monitor. * Marta Calderón RN - 09/20/2017 11:54 PM EDT 09/20/17 2351 ED Screening ED Screening Completed Initial screening complete, post-acute needs identified, assessment to follow Medical Record Reviewed No Who you interviewed In person interview with patient What brought the patient to the ED CHEST PAIN PT LIVES AT [facility] IN [place] HAS PCP RX COVERAGE DORIAN JACOB IS POLICY WRITER SALES PT USES 2 WHEELED WALKER- WITH HER NOW GETS ASSISTANCE WITH SHOWERING DRESSING BY STAFF AT FACILITY HER PLACE OF LIVING HAS CONTRACT WITH [employer]. FOR TRANSPORT AT D/C [place] [phone] Where did the patient come from? Assisted Living Support Systems Agency Activities of Daily Living Needs Assistance Mental Status Alert and oriented Issues with non-compliance No Anticipated post-acute care needs Assisted Living Potential barriers to discharge No Observation Information Provided to Patient/Family Yes form signed (D/W PT NO C/O SIGNED COPY TO ED CHART MEDICARE/MEDICAID COVERAGE) Does patient meet high risk triggers? Multiple acute diagnosis;Exacerbation of chronic illness documented in this encounter H&P Notes * Ernie Pizano MD - 09/21/2017 8:38 AM EDT [facility] History and Physical Name: Faby Palm : 1950 AGE: 67 y.o. PCP: Sharee Segovia ARNP Admitting Physician: Ernie Pizano MD Date of Admit: 09/20/2017 Chief Complaint: Chief Complaint Patient presents with ??? Chest Pain pt given 3 nitro before EMS called. EMS gave pt 3 nitro, 3x81mg ASA (pt takes 1x81mg ASA daily), 50mcg of fentanyl, 4mg zofran. History of Present Illness: 67 yo WF admitted with chest pain which she states began last PM when she lied down to go to bed. Pain was non-exertional and sharp. She took several NTG SL which she states were nasty and only helped a little Pain now gone and wants to eat. No ab pain, N/V Pt with hx of CAD with angio on 07/25/17 with ----Card Cath 07/25/17: ?? Ost RCA lesion 60% stenosed. ?? Mid RCA lesion 40% stenosed. ?? Mid LAD lesion 50% stenosed. Significant but not clearly flow limiting dz Ostial RCA of 50-70% - difficult to image due to angulation with FFR of 0.92 Mid LAD appearing 50% with FFR of 0.82 Normal LVEDP Pt was here in late July 2017 for CP and seen by Card at time --not felt to need further cardiac w/u. Pt was hypotensive in the Ed last PM--prob due to several doses of NTG--now improved at 118/56. Pt bradycardic with pulse in the 40-50s which appears to be somewhat chronic. Past Medical History: Diagnosis Date ??? Atrial flutter (HCC) EPS, AFL Ablation on 12/31/[address] Tee ??? CHF (congestive heart failure) ([facility]) ??? COPD (chronic obstructive pulmonary disease) ([facility]) ??? DDD (degenerative disc disease) ??? Diabetes mellitus ([facility]) ??? Hypertension ??? Intellectual disability 05/03/2017 ??? NC (myocardial infarction) ([facility]) ??? RLS (restless legs syndrome) ??? Schizoaffective disorder, depressive type ([facility]) 02/19/2017 ??? Stroke ([facility]) 2010 left side affected ??? [...] Brown MD; Location: [facility]; Service: Endoscopy Prescriptions Prior to Admission Medication Sig Dispense Refill Last Dose ??? acetaminophen 325 mg Oral Tab Take 650 mg by mouth every 4 hours as needed for Pain. Taking at Unknown time ??? ydcao-A-iokuanhocxpxm (ANTI-GAS ORAL) Take by mouth 3 times daily as needed. Taking at Unknown time ??? amLODIPine (NORVASC) 2.5 mg Oral Tablet Take 1 Tab by mouth daily. 30 Tab 11 Taking at Unknown time ??? ARIPiprazole (ABILIFY) 30 mg Oral Tablet Take 1 Tab by mouth daily. 30 Tab 0 Taking at Unknown time ??? aspirin 81 mg Oral Tablet, Chewable Take 1 Tab by mouth daily. 60 Tab 0 Taking at Unknown time ??? atorvastatin (LIPITOR) 20 mg Oral Tablet TAKE ONE TABLET BY MOUTH NIGHTLY 30 Tab 1 Taking at Unknown time ? ? cloNIDine HCl (CATAPRES) 0.1 mg Oral Tablet Take 1 Tab by mouth daily. Hold for SBP <90 30 Tab 2 Taking at Unknown time ??? clopidogrel (PLAVIX) 75 mg Oral Tablet Take 1 Tab by mouth daily. 90 Each 1 Taking at Unknown time ??? ferrous sulfate 325 mg (65 mg iron) Oral Tablet Take 1 Tab by mouth 2 times daily (with meals).60 Tab 5 Taking at Unknown time ??? FIBER CHOICE ORAL Take 325 mg by mouth 2 times daily. Taking at Unknown time ??? fUROsemide (LASIX) 20 mg Oral Tablet Take 1 Tab by mouth daily. 30 Tab 0 Taking at Unknown time ??? glipiZIDE (GLUCOTROL) 10 mg Oral Tablet Take 10 mg by mouth 2 times daily (with meals). Taking at Unknown time ??? insulin glargine (LANTUS) 100 unit/mL SubQ Solution 30 units sq nightly (Patient taking differently: 28 Units nightly. 30 units sq nightly) 10 mL 2 Taking at Unknown time ??? inulin (FIBER CHOICE, INULIN,) 1.5 gram Oral Tablet, Chewable Take by mouth 2 times daily. Taking at Unknown time ??? isosorbide mononitrate (IMDUR) 60 mg Oral Tablet Sustained Release 24 hr TAKE ONE TABLET BY MOUTH ONCE DAILY 30 Tab 1 Taking at Unknown time ??? lamoTRIgine (LAMICTAL) 25 mg Oral Tablet Take 1 Tab by mouth 2 times daily. 60 Tab 0 Taking at Unknown time ??? lisinopril (PRINIVIL;ZESTRIL) 20 mg Oral Tablet Take 20 mg by mouth daily. Taking at Unknown time ??? loperamide (IMODIUM) 2 mg Oral Capsule Take 2 mg by mouth 3 times daily as needed. Taking at Unknown time ??? metFORMIN XR (GLUCOPHAGE-XR) 500 mg Oral Tablet Sustained Release 24 hr Take 500 mg by mouth daily (with breakfast). Taking at Unknown time ??? metoprolol 75 mg Oral Tablet Take 75 mg by mouth 2 times daily. (Patient taking differently: Take 50 mg by mouth 2 times daily.) 60 Tab 2 Taking Differently at Unknown time ??? nitroGLYCERIN (NITROSTAT) 0.4 mg SL Tablet, Sublingual Place 1 Tab under the tongue every 5 minutes as needed for Chest pain. 20 Tab 2 Taking at Unknown time ??? nystatin (MYCOSTATIN) Top Powder Apply topically 2 times daily. Taking at Unknown time ??? RANEXA 1,000 mg Oral Tablet Sustained Release 12 hr TAKE ONE TABLET BY MOUTH EVERY 12 HOURS 60 Tab 0 ??? Saccharomyces boulardii (FLORASTOR) 250 mg Oral Capsule Take 250 mg by mouth 2 times daily. Taking at Unknown time ??? sertraline (ZOLOFT) 100 mg Oral Tablet Take 200 mg by mouth daily. Reported on 08/12/2016 Taking at Unknown time ??? sucralfate (CARAFATE) 100 mg/mL Oral Suspension Take 1 g by mouth 4 times daily (before meals and nightly). Taking at Unknown time ??? traZODone (DESYREL) 50 mg Oral Tablet Take 1 Tab by mouth nightly. 30 Tab 2 Taking at Unknown time Allergies Allergen Reactions ??? Compazine [Prochlorperazine Edisylate] ??? Warrior ??? Pentazocine Hcl ??? Prochlorperazine Maleate ??? Maria Teresa [Pentazocine Lactate] Social History Social History ??? [...] ??? None Social History Narrative Lives at [facility] Has two children and two grandchildren. Is Family History Problem Relation Age of Onset ??? Cancer Mother larnyx cancer ??? Heart Disease Sister ??? No Known Problems Son ??? Seizures Daughter Review of Systems: The listed systems were reviewed and reveal the following in addition to any already discussed in the HPI: ?? Constitutional: No fever, chills, or weight loss ?? Eyes: No visual disturbance ?? HEENT: No headache, hearing loss, epistaxis, sore throat, or hoarseness ?? Lungs: No SOB, cough, hemoptysis, or pleuritic chest pain ?? Cardiovascular: Pt with CP yest PM--sharp and associated with lying down--now resolved ?? Endocrine: No polyuria, polydypsia, or polyphagia ?? GI: No abdominal pain, nausea, vomiting, hematemesis, diarrhea, constipation, melena, hematochezia, or bright red blood per rectum ?? : No dysuria, frequency, hesitancy, or hematuria ?? Musculoskeletal: No myalgias or muscle weakness ?? Neurologic: No focal numbness or weakness ?? Skin: No edema, jaundice, or skin doscoloration ?? Psychiatric: No depression, ?? Hematologic/Allergic: No history of bleeding or easy bruising OBJECTIVE: Physical Exam: Vitals: 09/21/17 0726 BP: 118/56 Pulse: 51 Resp: 18 Temp: 98.1 ??F (36.7 ??C) SpO2: 96% Weight: 235 lb 11.2 oz (106.9 kg) Constitutional: Well developed, well nourished, no acute distress, non-toxic appearance Appears comfortable Eyes: PERRL, conjunctiva normal HEENT: Atraumatic,mouth moist, Neck- normal range of motion, no tenderness, supple no LA TM JVD Respiratory: No respiratory distress, normal breath sounds, no rales, no wheezing Cardiovascular: Bradycardic--regular Chest wall --non-tender GI: Soft, nondistended, normal bowel sounds, nontender no mass, no rebound, no guarding :not examined Musculoskeletal: No edema, no tenderness, no deformities. Integument: Well hydrated, no rash Lymphatic: No lymphadenopathy noted Neurologic: Alert & oriented x 3, ,moving all 4 limbs equally no Gross focal deficits noted Psychiatric: Speech and behavior appropriate Labs: CBC: Lab Results Component Value Date WBC 7.1 09/21/2017 RBC 3.95 09/21/2017 HGB 11.4 09/21/2017 HCT 36.0 09/21/2017 MCV 91.1 09/21/2017 MCHC 31.7 09/21/2017 RDW 13.8 09/21/2017 MPV 11.8 09/21/2017 BMP: Lab Results Component Value Date NA 142 09/20/2017 K 3.6 09/20/2017 CL 104 09/20/2017 CO2 25 09/20/2017 BUN 17 09/20/2017 CREATININE 1.18 09/20/2017 CALCIUM 8.6 (L) 09/20/2017 GFRAFRAM 56 09/20/2017 GFRNONAFRAM 48 09/20/2017 GLU 149 (H) 09/20/2017 Hepatic: Lab Results Component Value Date ALKPHOS 118 (H) 09/21/2017 ALT 6 09/21/2017 AST 8 09/21/2017 PROT 6.5 09/21/2017 LABBILI 0.2 09/21/2017 BILIDIR <0.2 09/21/2017 No results found for: AMYLASE, LIPASE U/A:No results found for: SPECGRAV, UAPROTEIN, BLOODU, NITRITE, LEUKOCYTESUR, WBCUA, RBCUA Coagulation: Lab Results Component Value Date INR 1.22 (H) 09/21/2017 Cardiac markers: No results found for: CKMB, MYOGLOBIN ABGs:No results found for: PH, PCO2, PO2, HCO3, TCO2, BASEEXCESS, O2SAT, INSPIREDO2, SPECIMENTYPE Radiology: Xr Chest Pa And Lateral Result Date: 09/20/2017 PA AND LATERAL CHEST X-RAY, 09/20/2017 10:09 PM CLINICAL HISTORY: -CHEST PAIN COMPARISON: 08/19/2017PROCEDURE COMMENTS: Frontal and lateral views of the chest. FINDINGS: Mild cardiac enlargement stable. Lungs clear. Degenerative changes of shoulders. No acute finding. Ek Ekg 12 Lead Result Date: 09/21/2017 NOTICE: Preliminary tracing available for review; Final Interpretation by physician to follow. Stationary ECG Study [facility] Interpretive Statements SINUS BRADYCARDIA LOW QRS VOLTAGE IN PRECORDIAL LEADS INFERIOR MYOCARDIAL INFARCTION, PROBABLY OLD ANTEROSEPTAL MYOCARDIAL INFARCTION, PROBABLY OLD Ek Ekg 12 Lead Result Date: 09/21/2017 NOTICE: Preliminary tracing available for review; Final Interpretation by physician to follow. Stationary ECG Study [facility] Interpretive Statements SINUS BRADYCARDIA LOW QRS VOLTAGE IN PRECORDIAL LEADS ANTEROSEPTAL MYOCARDIAL INFARCTION, PROBABLY OLD CONSIDER INFERIOR INFARCT - AGE UNDETERMINED Electronically Signed On 09-21-2017 7:25:28 EDT by Tank Gregg MD Results for orders placed during the hospital encounter of 09/20/17 EK EKG 12 LEAD Narrative NOTICE: Preliminary tracing available for review; Final Interpretation by physician to follow. Impression Stationary ECG Study [facility] Interpretive Statements SINUS BRADYCARDIA LOW QRS VOLTAGE IN PRECORDIAL LEADS INFERIOR MYOCARDIAL INFARCTION, PROBABLY OLD ANTEROSEPTAL MYOCARDIAL INFARCTION, PROBABLY OLD All Radiology/Labs/EKG's/Cardiac testing reviewed. A/P Diagnosis ??? *Chest pain at rest--pt with recurrent CP--now resolved. troponins negative and EKG without acute changes Recent angio in 07/2017 as above --fele to have stable coronary anatomy per Card--continues cardiac meds Chest xray negative Labs unrevealing Possible GERD?--given sxs with lying down ---add Protonix Priority: Medium ??? Schizoaffective disorder, depressive type (HCC) Priority: Medium ??? 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 S/P ablation of atrial flutter--pt with sinus bradycardia --decrease metoprolol to 25 mg BID Priority: Medium ??? Chronic diastolic CHF (congestive heart failure) (HCC) Priority: Medium--cont Lasix ??? ASHD (arteriosclerotic heart disease)--as above with recent angio 07/2017 Priority: Medium Will add Protonix for possible GERD as above Reduce Lopressor Ok to d/c to home with outpt f/u Ernie Pizano MD 09/21/2017 8:38 AM documented in this encounter ED Notes * Cassie Rabago RN - 09/20/2017 9:33 PM EDT Bed: 23 Expected date: Expected time: Means of arrival: Comments: Allen * Elizabeth Martin MD - 09/20/2017 9:33 PM EDT CHIEF COMPLAINT Chief Complaint Patient presents with ??? Chest Pain pt given 3 nitro before EMS called. EMS gave pt 3 nitro, 3x81mg ASA (pt takes 1x81mg ASA daily), 50mcg of fentanyl, 4mg zofran. HPI Faby Palm is a 67 y.o. female who presents Chest pain, onset tonight when she went to lay down to go to sleep. She had dinner lay down to go to bed, had anterior chest pain radiates to left shoulder and left jaw. She was treated at her facility with 3 nitroglycerin. She had taken her nightly medicines including clonidine, and blood pressure medicines, and routes. She was given 3 more nitroglycerin, aspirin and fentanyl. She states her pain is unchanged. She's had recent cardiac problems. She states her day was okay other than some life stressors and she's had a cough and a little shortness of breath. It got better with an inhaler. No fevers, no nausea, no vomiting. She's also had several loose stools today. REVIEW OF SYSTEMS See HPI for further details. Review of systems otherwise negative. PAST MEDICAL HISTORY Past Medical History: Diagnosis Date ??? Atrial flutter (HCC) EPS, AFL Ablation on 12/31/[address] Tee ??? CHF (congestive heart failure) (HCC) ??? COPD (chronic obstructive pulmonary disease) (HCC) ??? DDD (degenerative disc disease) ??? Diabetes mellitus (HCC) ??? Hypertension ??? Intellectual disability 05/03/2017 ??? NC (myocardial infarction) (HCC) ??? RLS (restless legs [...] ??? None Social History Narrative Lives at [facility] Has two children and two grandchildren. [...] Brown MD; Location: [facility]; Service: Endoscopy CURRENT MEDICATIONS Current Facility-Administered Medications: ??? sodium chloride 0.9% IV line flush 50 mL, 50 mL, Intravenous, PRNVeronica Emily Lynn, MD ??? sodium chloride 0.9% syringe 5 mL, 5 mL, Intravenous, PRN, Elizabeth Martin MD Current Outpatient Prescriptions: ??? acetaminophen 325 mg Oral Tab, Take 650 mg by mouth every 4 hours as needed for Pain., Disp: , Rfl: ??? zydub-F-rlpewrzukhlng (ANTI-GAS ORAL), Take by mouth 3 times daily as needed., Disp: , Rfl: ??? amLODIPine (NORVASC) 2.5 mg Oral Tablet, Take 1 Tab by mouth daily., Disp: 30 Tab, Rfl: 11 ??? ARIPiprazole (ABILIFY) 30 mg Oral Tablet, Take 1 Tab by mouth daily., Disp: 30 Tab, Rfl: 0 ??? aspirin 81 mg Oral Tablet, Chewable, Take 1 Tab by mouth daily., Disp: 60 Tab, Rfl: 0 ??? atorvastatin (LIPITOR) 20 mg Oral Tablet, TAKE ONE TABLET BY MOUTH NIGHTLY, Disp: 30 Tab, Rfl: 1 ? ? cloNIDine HCl (CATAPRES) 0.1 mg Oral Tablet, Take 1 Tab by mouth daily. Hold for SBP <90, Disp: 30 Tab, Rfl: 2 ??? clopidogrel (PLAVIX) 75 mg Oral Tablet, [...] daily., Disp: 30 Tab, Rfl: 0 ??? glipiZIDE (GLUCOTROL) 10 mg Oral Tablet, Take 10 mg by mouth 2 times daily (with meals)., Disp:, Rfl: ??? insulin glargine (LANTUS) 100 unit/mL SubQ Solution, 30 units sq nightly (Patient taking differently: 28 Units nightly. 30 units sq nightly), Disp: 10 mL, Rfl: 2 ??? inulin [...] daily., Disp: 60 Tab, Rfl: 0 ??? lisinopril (PRINIVIL;ZESTRIL) 20 mg Oral Tablet, Take 20 mg by mouth daily., Disp: , Rfl: ??? loperamide (IMODIUM) 2 mg Oral Capsule, Take 2 mg by mouth 3 times daily as needed., Disp: , Rfl: ??? metFORMIN XR (GLUCOPHAGE-XR) 500 mg Oral Tablet Sustained Release 24 hr, Take 500 mg by mouth daily (with breakfast)., Disp: , Rfl: ??? metoprolol 75 mg Oral Tablet, Take 75 mg by mouth 2 times daily. (Patient taking differently: Take 50 mg by mouth 2 times daily.), Disp: 60 Tab, Rfl: 2 ??? nitroGLYCERIN (NITROSTAT) 0.4 mg SL Tablet, Sublingual, Place 1 Tab under the tongue every 5 minutes as needed for Chest pain., Disp: 20 Tab, Rfl: 2 ??? nystatin (MYCOSTATIN) Top Powder, Apply topically 2 times daily., Disp: , Rfl: ??? RANEXA 1,000 mg Oral Tablet Sustained Release 12 hr, TAKE ONE TABLET BY MOUTH EVERY 12 HOURS, Disp: 60 Tab, Rfl: 0 ??? Saccharomyces boulardii (FLORASTOR) 250 mg [...] Allergen Reactions ??? Compazine [Prochlorperazine Edisylate] ??? Warrior ??? Pentazocine Hcl ??? Prochlorperazine Maleate ??? Talwin [Pentazocine Lactate] PHYSICAL EXAM VITAL SIGNS: ED Triage Vitals [09/20/177] Temp 98.1 ??F (36.7 ??C) Pulse (!) 46 Resp 20 BP (!) 80/48 SpO2 91 % Height 5' 8.5 (1.74 m) Weight 242 lb (109.8 kg) Constitutional: Well developed, Well nourished, No acute distress, Non-toxic appearance. Sitting upright, drowsy-appearing, but no acute distress HENT: Normocephalic, Atraumatic, Bilateral external ears normal, Oropharynx moist, No oral exudates, Nose normal. Eyes: PERRLA, EOMI, Conjunctiva normal, No discharge. Neck: Normal range of motion, No tenderness, Supple, No stridor. Cardiovascular: Slow heart rate, Normal rhythm, No murmurs, No rubs, No gallops. Thorax & Lungs: Normal breath sounds, No respiratory distress, No wheezing, No chest tenderness. Abdomen: Soft, No tenderness, No masses, No pulsatile masses. Skin: Warm, Dry, No erythema, No rash. Back: No tenderness, No CVA tenderness. Extremities: Intact distal pulses, trace bilateral but left greater than right edema, No tenderness, No cyanosis Musculoskeletal: Good range of motion in all major joints. No tenderness to palpation or major deformities noted. Neurologic: Alert & oriented x 3, Normal motor function, Normal sensory function, No focal deficits noted. Psychiatric: Affect flat, Judgment normal, Mood depressed EKG EKG done at 21/40, rate of 48, sinus bradycardia, low QRS voltage is very similar to 08/20/17 RADIOLOGY/PROCEDURES Labs Reviewed CBC WITH DIFF - Abnormal Result Value WBC 7.9 RBC 4.10 Hgb 12.0 Hct 35.4 (*) MCV 86.2 MCH 29.2 MCHC 33.9 RDW 14.1 Platelet 186 MPV 9.3 Neut Percent 59.0 Lymph Percent 30.6 [place] Percent 6.4 Eos Percent 3.1 Baso Percent 0.9 Neut # 4.7 Lymph # 2.4 [place] # 0.5 Eos# 0.2 Baso # 0.1 BASIC METABOLIC PANEL - Abnormal Sodium 142 Potassium 3.6 Chloride 104 Total CO2 25 Anion Gap 13 Calcium 8.6 (*) Glucose Lvl 149 (*) BUN 17 Creatinine 1.18 GFR Afr Am 56 GFR Non Afr Am 48 TROPONIN-T - Normal Troponin-T <0.01 Narrative: Ingestion of charles doses of biotin (>5 mg/day) taken within 8 hours of drawing blood sample can interfere with this immunoassay test. TROPONIN-T XR CHEST PA AND LATERAL Final Result PA AND LATERAL CHEST X-RAY, 09/20/2017 10:09 PM CLINICAL HISTORY: -CHEST PAIN COMPARISON: 08/19/2017 PROCEDURE COMMENTS: Frontal and lateral views of the chest. FINDINGS: Mild cardiac enlargement stable. Lungs clear. Degenerative changes of shoulders. IMPRESSION: No acute finding. EK EKG 12 LEAD Preliminary Result NOTICE: Preliminary tracing available for review; Final Interpretation by physician to follow. IMPRESSION Stationary ECG Study [facility] Interpretive Statements SINUS BRADYCARDIA LOW QRS VOLTAGE IN PRECORDIAL LEADS ANTEROSEPTAL MYOCARDIAL INFARCTION, PROBABLY OLD COURSE & MEDICAL DECISION MAKING Pertinent Labs & Imaging studies reviewed. (See chart for details) Presents with recurrent at rest. Chest pain. Patient has had several cardiac admissions recently angiogram done showing 40-70% lesions recommended medical therapy and adding Plavix at that time. Patient presented hypotensive. I suspect this is due to the 6 doses of sublingual nitroglycerin, fentanyl, clonidine, other nighttime meds that patient had she is responding to fluids. She continues to complain of pain trying to provide pain relief without causing further hemodynamic instability. Ispoke with Deirdre with hospitalist team regarding plan for admission FINAL IMPRESSION 1. 1. Chest pain, unspecified type 2. Hypotension due to drugs Condition the disposition: stable This chart was completed using voice recognition technology and may contain unintended errors Elizabeth Martin MD 09/20/17 [id number] documented in this encounter Miscellaneous Notes * Utilization Review Notes - Pat Chapa RN - 09/21/2017 9:35 AM EDT To ED, OBS order for chest pain Plan: Tele, serial troponin documented in this encounter Plan of Treatment [...] Priority Date/Time Associated Diagnosis Comments SCANNED EKG 09/23/2017 4:22 PM EDT GLUCOSE METER POC Routine 09/21/2017 12: 33 PM EDT GLUCOSE METER POC Routine 09/21/2017 9:0 7 AM EDT ECG AND WAVEFORMS - TELEMETRY Routine 09/21/2017 8:07 AM EDT GLUCOSE METER POC Routine 09/21/2017 7:5 7 AM EDT TROPONIN-T Timed 09/21/2017 4:15 AM EDT PARTIAL THROMBOPLASTIN TIME Routine 09/21/2017 4:15 AM EDT PT / INR Routine 09/21/2017 4:15 AM EDT CBC WITH DIFF Routine 09/21/2017 4:15 AM EDT THYROID STIMULATING HORMONE Routine 09/21/2017 4:15 AM EDT MAGNESIUM LEVEL Routine 09/21/2017 4:15 AM EDT HEPATIC FUNCTION PANEL Routine 8 4:15 AM EDT LIPID SCREEN Routine 09/21/2017 4:15 AM EDT ECG AND WAVEFORMS - TELEMETRY Routine 09/21/2017 2:22 AM EDT ECG AND WAVEFORMS - TELEMETRY Routine 09/21/2017 2:19 AM EDT EK EKG 12 LEAD Routine 09/21/2017 2:10 AM EDT TROPONIN-T STAT 09/20/2017 11:56 PM EDT XR CHEST PA AND LATERAL EMMY 09/21/19 18 10:09 PM EDT TROPONIN-T STAT 09/20/2017 9:51 PM EDT CBC WITH DIFF STAT 09/20/2017 9:51 PM EDT BASIC METABOLIC PANEL STAT 09/20/2017 9:51 PM EDT EK EKG 12 LEAD STAT 09/20/2017 9:34 PM EDT SALINE LOCK IV STAT 09/20/2017 9:34 PM EDT documented in this encounter Results * SCANNED EKG (09/23/2017 4:22 PM EDT) Anatomical Region Laterality Modality Other 09/23/2017 4:22 PM EDT us Unknown Unknown IMG ECG ORDERABLES Final Result * (ABNORMAL) GLUCOSE METER POC (09/21/2017 12:33 PM EDT) [facility] Glucose Meter POC 104(H) 70 - 100 mg/dL 09/21/2017 12:35 PM EDT [facility] Sample Type Capillary 09/21/2017 12:35 PM EDT [facility] Patient Status Non-Critical Patient 09/21/2017 12:35 PM EDT [facility] Blood BLOOD SPECIMEN / Unknown 09/21/2017 12:33 PM EDT 09/21/2017 12:35 PM EDT us Evie Adames MD POINT OF CARE TEST ORDERABLES Final Result [facility] [address] [place] [address] * GLUCOSE METER POC (09/21/2017 9:07 AM EDT) Glucose Meter POC 91 70 - 100 mg/dL 09/21/2017 9:08 AM EDT [facility] Sample Type Capillary 09/21/2017 9:08 AM EDT [facility] Patient Status Non-Critical Patient 09/21/2017 9:08 AM EDT [facility] Blood BLOOD SPECIMEN / Unknown 09/21/2017 9:07 AM EDT 09/21/2017 9:08 AM EDT us Evie Adames MD POINT OF CARE TEST [place] [address] * ECG AND WAVEFORMS - TELEMETRY (09/21/2017 8:07 AM EDT) ECG INTERPRET Sinus Bradycardia [facility] EXECUTIVE RECRUITER APPROVED Yes [facility] 09/21/2017 8:[address] [facility] - 09/21/2017 8:35 AM EDT ??See Clinical Report link for waveform capture us Unknown Provider POINT OF CARE CARDIOLOGY Final Result [facility] [address] [place] [address] * GLUCOSE METER POC (09/21/2017 7:57 AM EDT) Glucose Meter POC 97 70 - 100 mg/dL 09/21/2017 7:58 AM EDT [facility] Sample Type Capillary 09/21/2017 7:58 AM EDT [facility] Patient Status Non-Critical Patient 09/21/2017 7:58 AM EDT [facility] Blood BLOOD SPECIMEN / Unknown 09/21/2017 7:57 AM EDT 09/21/2017 7:58 AM EDT us Evie Adames MD POINT OF CARE TEST ORDERABLES Final Result Performing Organization Address [facility]/State/[place] [address] * (ABNORMAL) LIPID SCREEN (09/21/2017 4:15 AM EDT) Cholesterol 110 <=200 mg/dL 09/21/2017 7:13 AM EDT [facility] Comment: < 200 ?Desirable 200 - 239 ? Borderline High >= 240 ?High Triglyceride 195(H) <=150 mg/dL 09/21/2017 7:13 AM EDT [facility] Comment: < 150 ? Normal 150 - 199 ?Borderline High 200 - 499 ?High ??>= 500 ? Very High HDL 36(L) >=40 mg/dL 09/21/2017 7:13 AM EDT [facility] Comment: ??> 60 ?Optimal 40 - 60 ?Acceptable ?? < 40 ?Low LDL Calculated 35 <=100 mg/dL 09/21/2017 7:13 AM EDT [facility] Comment: < 100 ?Optimal 100 - 129 ? Near or above optimal 130 - 159 ? Borderline High 160 - 189 ? High >= 190 ?Very High Non-HDL-C Calculated 74 <=129 mg/dL 09/21/2017 7:13 AM EDT [facility] Comment: <130 ?Desirable 130-159 Above Desirable 160-189 Borderline High 190-219 High >= 220 ??Very High Blood VENOUS BLOOD / Unknown Venipuncture / Unknown 09/21/2017 4:15 AM EDT 09/21/2017 6:24 AM EDT us Crystal Sally Eastridge LIBRARIAN ASSISTANT CHEMISTRY ORDERABLES Final Result [facility] [address] [facility] , [place] [address] * MAGNESIUM LEVEL (09/21/2017 4:15 AM EDT) Pathologist [facility] Magnesium 1.7 1.6 - 2.4 mg/dL 09/21/2017 7:13 AM EDT [facility] Blood VENOUS BLOOD / Unknown Venipuncture / Unknown 09/21/2017 4:15 AM EDT 09/21/2017 6:24 AM EDT us Deirdre Romano LIBRARIAN ASSISTANT CHEMISTRY ORDERABLES Final Result Performing Organization Address City/[facility] Co de Phone Number [facility] [address] [facility] , [address] [place] [phone] * (ABNORMAL) HEPATIC FUNCTION PANEL (09/21/2017 4:15 AM EDT) Total Protein 6.5 6.4 - 8.3 gm/dL 09/21/2017 7:13 AM EDT [facility] Albumin 3.4 3.2 - 4.6 gm/dL 09/21/2017 7:13 AM EDT [facility] Bili Direct <0.2 0.0 - 0.3 mg/dL 09/21/2017 7:13 AM EDT [facility] Bili Total 0.2 0.1 - 1.3 mg/dL 09/21/2017 7:13 AM EDT [facility] AST 8 <=40 IU/L 09/21/2017 7:13 AM EDT [facility] ALT 6 <=41 IU/L 09/21/2017 7:13 AM EDT [facility] Alk Phos 118(H) 35 - 104 IU/L 09/21/2017 7:13 AM EDT [facility] Blood VENOUS BLOOD / Unknown Venipuncture / Unknown 09/21/2017 4:15 AM EDT 09/21/2017 6:24 AM EDT us Crystal Sally [place] LIBRARIAN ASSISTANT CHEMISTRY ORDERABLES Final Result Performing Organization Address [facility] de Phone Number [facility] [address] [facility] , [address] [place] [phone] * THYROID STIMULATING HORMONE (09/21/2017 4:15 AM EDT) TSH 2.760 0.270 - 4.200 mcIU/mL 09/21/2017 7:13 AM EDT [facility] Blood VENOUS BLOOD / Unknown Venipuncture / Unknown 09/21/2017 4:15 AM EDT 09/21/2017 6:24 AM EDT Narrative [facility] - 09/21/2017 7:13 AM EDT Ingestion of charles doses of biotin (>5 mg/day) taken within 8 hours of drawing blood sample can interfere with this immunoassay test. Deirdre Romano APRN CHEMISTRY ORDERABLES Final Result Performing Organization Address [facility] Phone Number [facility] [address] [facility] , [place] [address] * PARTIAL THROMBOPLASTIN TIME (09/21/2017 4:15 AM EDT) PTT 29.6 26.0 - 36.4 second(s) 09/21/2017 7:11 AM EDT [facility] Comment: Therapeutic range for unfractionated heparin: 53.0 - 94.4 seconds Therapeutic range for direct thrombin inhibitors: Argatroban is 1.5 to 3 times the aPTT baseline. Lepirudin is 1.5 to 2 times the aPTT baseline. The aPTT should not exceed 100 seconds. The dosage of Argatroban should be decreased in patients with hepatic impairment. ??The dosage of Lepirudin should be decreased in renal insufficiency. Blood VENOUS BLOOD / Unknown Venipuncture / Unknown 09/21/2017 4:15 AM EDT 09/21/2017 6:24 AM EDT Deirdre Romano APRN HEMATOLOGY ORDERABLE S Final Result Performing Organization Address [facility]/ZIP Co de Phone Number [facility] [address] [facility] , [place] [address] * (ABNORMAL) PT / INR (09/21/2017 4:15 AM EDT) Pathologist [facility] PT 14.2(H) 9.7 - 12.5 second(s) 09/21/2017 7:11 AM EDT [facility] [place] INR 1.22(H) 0.84 - 1.08 no units 09/21/2017 7:11 AM EDT [facility] [place] Comment: Level of Therapy ? Indications ?Target INR Range Standard Dose Treatment and prophylaxis of venous ? 2.0 - 3.0 ? thrombosis, pulmonary embolism High Dose ? High risk patients with mechanical ? 2.5 - 3.5 ? heart valves Blood VENOUS BLOOD / Unknown Venipuncture / Unknown 09/21/2017 4:15 AM EDT 09/21/2017 6:24 AM EDT Deirdre Romano APRN HEMATOLOGY ORDERABLE S Final Result [facility] [address] [facility] , [place] [address] * CBC WITH DIFF (09/21/2017 4:15 AM EDT) Pathologist [facility] WBC 7.1 3.7 - 10.3 x10(3)/mcL 09/21/2017 6:30 AM EDT [facility] RBC 3.95 3.90 - 5.20 x10(6)/mcL 09/21/2017 6:30 AM EDT [facility] Hgb 11.4 11.2 - 15.7 g/dL 09/21/2017 6:30 AM EDT [facility] Hct 36.0 34.0 - 45.0 % 09/21/2017 6:30 AM EDT [facility] MCV 91.1 79.0 - 98.0 fL 09/21/2017 6:30 AM EDT [facility] MCH 28.9 26.0 - 32.0 pg 09/21/2017 6:30 AM EDT [facility] MCHC 31.7 30.7 - 35.5 g/dL 09/21/2017 6:30 AM EDT [facility] RDW 13.8 <=14.9 % 09/21/2017 6:30 AM EDT [facility] Platelet 159 155 - 369 x10(3)/[facility] 09/21/2017 6:30 AM EDT [facility] MPV 11.8 8.8 - 12.5 fL 09/21/2017 6:30 AM EDT [facility] Neut Percent 57.5 % 09/21/2017 6:30 AM EDT [facility] Comment:Neutrophils equals s egs plus bands Imm Gran% 0.8 % 09/21/2017 6:30 AM EDT [facility] Comment:Automated count of m etamyelocytes, myelocytes and promyelocytes. Lymph Percent 31.2 % 09/21/2017 6:30 AM EDT [facility] Louisa Percent 7.0 % 09/21/2017 6:30 AM EDT [facility] Eos Percent 3.1 % 09/21/2017 6:30 AM EDT [facility] Baso Percent 0.4 % 09/21/2017 6:30 AM EDT [facility] Neut # 4.1 1.6 - 6.1 x10(3)/[facility] 09/21/2017 6:30 AM EDT [facility] Comment:Neutrophils equals s egs plus bands IMMGRAN# 0.1 0.0 - 0.1 x10(3)/[facility] 09/21/2017 6:30 AM EDT [facility] Comment:Automated count of m etamyelocytes, myelocytes and promyelocytes. An absolute IG <0.1 is reported as 0.0. Lymph # 2.2 1.2 - 3.9 x10(3)/mcL 09/21/2017 6:30 AM EDT [facility] Louisa # 0.5 0.3 - 0.9 x10(3)/[facility] 09/21/2017 6:30 AM EDT [facility] Eos# 0.2 0.0 - 0.5 x10(3)/mcL 09/21/2017 6:30 AM EDT [facility] Baso # 0.0 0.0 - 0.1 x10(3)/mcL 09/21/2017 6:30 AM EDT [facility] Blood VENOUS BLOOD / Unknown Venipuncture / Unknown 09/21/2017 4:15 AM EDT 09/21/2017 6:24 AM EDT us Deirdre Romano NIKO HEMATOLOGY ORDERABLE S Final Result Performing Organization Address [facility] de Phone Number [facility] [employer] [address] , [address] [place] [phone] * TROPONIN-T (09/21/2017 4:15 AM EDT) Troponin-T <0.01 <0.01 ng/mL 09/21/2017 7:13 AM EDT [facility] Blood VENOUS BLOOD / Unknown Venipuncture / Unknown 09/21/2017 4:15 AM EDT 09/21/2017 6:24 AM EDT Narrative [facility] - 09/21/2017 7:13 AM EDT Ingestion of charles doses of biotin (>5 mg/day) taken within 8 hours of drawing blood sample can interfere with this immunoassay test. us Elizabeth Martin MD CHEMISTRY ORDERABLES Final R esult Performing Organization Address [facility] Co de Phone Number [facility] [employer] [address] , [place] [address] * ECG AND WAVEFORMS - TELEMETRY (09/21/2017 2:22 AM EDT) ECG INTERPRET Sinus Bradycardia [facility] EXECUTIVE RECRUITER APPROVED Yes [facility] 09/21/2017 2:[address] [facility] - 09/21/2017 2:23 AM EDT ??See Clinical Report link for waveform capture us Unknown Provider POINT OF CARE CARDIOLOGY Final Result Performing Organization Address City/[facility]/ZIP Co de Phone Number [facility] [facility] [address] [place] [address] * ECG AND WAVEFORMS - TELEMETRY (09/21/2017 2:19 AM EDT) ECG INTERPRET Sinus Bradycardia [facility] EXECUTIVE RECRUITER APPROVED Yes [facility] 09/21/2017 2:[address] [facility] - 09/21/2017 2:23 AM EDT ??See Clinical Report link for waveform capture us Unknown Provider POINT OF CARE CARDIOLOGY Final Result Performing Organization Address [facility] de Phone Number [facility] [address] [place] [address] * EK EKG 12 LEAD (09/21/2017 2:10 AM EDT) Anatomical Region Laterality Modality Electrocardiogra phy 09/21/2017 6:39 AM EDT Impressions 09/21/2017 4:01 PM EDT ? Stationary ECG Study ?[facility] ? Interpretive Statements ? SINUS BRADYCARDIA LOW QRS VOLTAGE IN PRECORDIAL LEADS INFERIOR MYOCARDIAL INFARCTION, PROBABLY OLD ANTEROSEPTAL MYOCARDIAL INFARCTION, PROBABLY OLD Electronically Signed On 09-21-2017 16:01:17 EDT by Tank Gregg MD Narrative Procedure Note Tank Gregg MD - 09/21/2017 IMPRESS[address] ECG Study [facility] Interpretive Statements SINUS BRADYCARDIA LOW QRS VOLTAGE IN PRECORDIAL LEADS INFERIOR MYOCARDIAL INFARCTION, PROBABLY OLD ANTEROSEPTAL MYOCARDIAL INFARCTION, PROBABLY OLD Electronically Signed On 09-21-2017 16:01:17 EDT by Tank Gregg MD us Elizabeth Martin MD IMG ECG ORDERABLES Final Res ult * TROPONIN-T (09/20/2017 11:56 PM EDT) Troponin-T <0.01 <0.01 ng/mL 09/21/2017 12:18 AM EDT [facility] Blood VENOUS BLOOD / Unknown Venipuncture / Unknown 09/20/2017 11:56 PM EDT 09/21/2017 12:00 AM EDT Narrative [facility] - 09/21/2017 12:18 AM EDT Ingestion of charles doses of biotin (>5 mg/day) taken within 8 hours of drawing blood sample can interfere with this immunoassay test. us Elizabeth Martin MD CHEMISTRY ORDERABLES Final R esult [facility] [address] [place] [address] * XR CHEST PA AND LATERAL (09/20/2017 10:09 PM EDT) Anatomical Region Laterality Modality Chest Radiographic Whit ging 09/20/2017 10:0 9 PM EDT Impressions 09/20/2017 10:12 PM EDT No acute finding. Narrative 09/20/2017 10:12 PM EDT PA AND LATERAL CHEST X-RAY, ??09/20/2017 10:09 PM CLINICAL HISTORY: ??-CHEST PAIN COMPARISON: ??08/19/2017 PROCEDURE COMMENTS: Frontal and lateral views of the chest. FINDINGS: Mild cardiac enlargement stable. Lungs clear. Degenerative changes of shoulders. Procedure Note Kyrie Sheppard MD - 09/20/2017 PA AND LATERAL CHEST X-RAY, 09/20/2017 10:09 PM CLINICAL HISTORY: -CHEST PAIN COMPARISON: 08/19/2017 PROCEDURE COMMENTS: Frontal and lateral views of the chest. FINDINGS: Mild cardiac enlargement stable. Lungs clear. Degenerative changes ofshoulders. IMPRESSION: No acute finding. us Elizabeth Martin MD IMG DIAGNOSTIC IMAGING ORDER DEBBIE Final Result * TROPONIN-T (09/20/2017 9:51 PM EDT) [facility] Troponin-T <0.01 <0.01 ng/mL 09/20/2017 10:19 PM EDT [facility] Blood VENOUS BLOOD / Unknown Venipuncture / Unknown 09/20/2017 9:51 PM EDT 09/20/2017 9:55 PM EDT Narrative [facility] - 09/20/2017 10:19 PM EDT Ingestion of charles doses of biotin (>5 mg/day) taken within 8 hours of drawing blood sample can interfere with this immunoassay test. us Elizabeth Martin MD CHEMISTRY ORDERABLES Final R esult [facility] [address] [place] [address] * (ABNORMAL) BASIC METABOLIC PANEL (09/20/2017 9:51 PM EDT) [facility] Sodium 142 136 - 145 mmol/L 09/20/2017 10:17 PM EDT [facility] Potassium 3.6 3.5 - 5.0 mmol/L 09/20/2017 10:17 PM EDT [facility] Chloride 104 98 - 107 mmol/L 09/20/2017 10:17 PM EDT [facility] Total CO2 25 22 - 29 mmol/L 09/20/2017 10:17 PM EDT [facility] Anion Gap 13 7 - 16 mmol/L 09/20/2017 10:17 PM EDT [facility] Calcium 8.6(L) 8.8 - 10.2 mg/dL 09/20/2017 10:17 PM [facility] Glucose Lvl 149(H) 82 - 100 mg/dL 09/20/2017 10:17 PM [facility] BUN 17 8 - 23 mg/dL 09/20/2017 10:17 PM [facility] Creatinine 1.18 0.51 - 1.30 mg/dL 09/20/2017 10:17 PM PSY[facility]IATRIC GFR Afr Am 56 mL/min/1.7 3 m2 09/20/2017 10:17 PM PSYCHIATRIC GFR Non Afr Am 48 mL/min/1.7 3 m2 09/20/2017 10:17 PM [facility] Comment: GFR Afr Am and GFR [...] VENOUS BLOOD / Unknown Venipuncture / Unknown 09/20/2017 9:51 PM EDT 09/20/2017 9:55 PM EDT us Elizabeth Martin MD CHEMISTRY ORDERABLES Final R esult [facility] [address] [place] [address] * (ABNORMAL) CBC WITH DIFF (09/20/2017 9:51 PM EDT) WBC 7.9 4.0 - 11.0 x10(3)/mcL 09/20/2017 9:57 PM EDT [facility] RBC 4.10 3.80 - 5.10 x10(6)/mcL 09/20/2017 9:57 PM EDT [facility] Hgb 12.0 12.0 - 15.6 g/dL 09/20/2017 9:57 PM EDT [facility] Hct 35.4(L) 35.7 - 45.9 % 09/20/2017 9:57 PM EDT [facility] MCV 86.2 82.5 - 99.8 fL 09/20/2017 9:57 PM EDT [facility] MCH 29.2 27.0 - 34.3 pg 09/20/2017 9:57 PM EDT [facility] MCHC 33.9 32.1 - 35.3 g/dL 09/20/2017 9:57 PM EDT [facility] RDW 14.1 11.5 - 15.0 % 09/20/2017 9:57 PM EDT [facility] Platelet 186 144 - 423 x10(3)/mcL 09/20/2017 9:57 PM EDT [facility] MPV 9.3 6.8 - 10.8 fL 09/20/2017 9:57 PM EDT [facility] Neut Percent 59.0 % 09/20/2017 9:57 PM EDT [facility] Lymph Percent 30.6 % 09/20/2017 9:57 PM EDT [facility] Louisa Percent 6.4 % 09/20/2017 9:57 PM EDT [facility] Eos Percent 3.1 % 09/20/2017 9:57 PM EDT [facility] Baso Percent 0.9 % 09/20/2017 9:57 PM EDT [facility] Neut # 4.7 1.8 - 7.7 x10(3)/[facility] 09/20/2017 9:57 PM EDT [facility] Lymph # 2.4 0.6 - 4.8 x10(3)/[facility] 09/20/2017 9:57 PM EDT [facility] Louisa # 0.5 0.0 - 1.3 x10(3)/[facility] 09/20/2017 9:57 PM EDT [facility] Eos# 0.2 0.0 - 0.5 x10(3)/[facility] 09/20/2017 9:57 PM EDT [facility] Baso # 0.1 0.0 - 0.2 x10(3)/[facility] 09/20/2017 9:57 PM EDT [facility] Blood VENOUS BLOOD / Unknown Venipuncture / Unknown 09/20/2017 9:51 PM EDT 09/20/2017 9:55 PM EDT us Elizabeth Martin MD HEMATOLOGY ORDERABLES Final Result Performing Organization Address City/State/[facility] Co de Phone Number [facility] [address] [place] [address] * EK EKG 12 LEAD (09/20/2017 9:34 PM EDT) Anatomical Region Laterality Modality Electrocardiogra phy 09/20/2017 9:40 PM EDT Impressions 09/21/2017 7:25 AM EDT ? Stationary ECG Study ?[facility] [place] ? Interpretive Statements ? SINUS BRADYCARDIA LOW QRS VOLTAGE IN PRECORDIAL LEADS ANTEROSEPTAL MYOCARDIAL INFARCTION, PROBABLY OLD CONSIDER INFERIOR INFARCT - AGE UNDETERMINED Electronically Signed On 09-21-2017 7:25:28 EDT by Tank Gregg MD Narrative Procedure Note Tank Gregg MD - 09/21/2017 IMPRESSION Stationary ECG Study [facility] [place] Interpretive Statements SINUS BRADYCARDIA LOW QRS VOLTAGE IN PRECORDIAL LEADS ANTEROSEPTAL MYOCARDIAL INFARCTION, PROBABLY OLD CONSIDER INFERIOR INFARCT - AGE UNDETERMINED Electronically Signed On 09-21-2017 7:25:28 EDT by Tank Gregg MD us Elizabeth Martin MD IMG ECG ORDERABLES Final Res ult documented in this encounter Visit Diagnoses Diagnosis Chest pain at rest- Primary Chest pain, unspecified Chest pain, unspecified type Hypotension due to drugs Other iatrogenic hypotension Chronic diastolic CHF (congestive heart failure) (HCC) 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) Type II or unspecified type diabetes mellitus with neurological manifestations, not stated as uncontrolled Schizoaffective disorder, depressive type (HCC) Schizoaffective disorder, unspecified condition ASHD (arteriosclerotic heart disease) Coronary atherosclerosis of unspecified type of vessel, cachil dehe or graft S/P ablation of atrial flutter Other postprocedural status documented in this encounter Administered Medications Inactive Administered Medications - up to 1 most recent administrations Medication Order MAR Action Action Date Dose Rate Site acetaminophen (OFIRMEV) infusion 1,000 mg 1,000 mg, Intravenous, ONCE, 1 dose, On Wed09/20/17 at 2300, Administer over 15 Minutes, Maximum adult dose of acetaminophen is 4000 mg from all sources in 24 hours. IV Started 09/20/2017 11:01 PM EDT 1,000 mg 400 mL/hr acetaminophen (TYLENOL) suppository 650 mg 650 mg, Rectal, EVERY 4 HOURS PRN, Starting on Wed09/21/17 at 0215, Until Wed09/21/17 at 1831, Pain, Fever, Headaches, mild to moderate pain, Maximum adult dose of acetaminophen is 4000 mg from all sources in 24 hours. acetaminophen (TYLENOL) tablet 650 mg 650 mg, Oral, EVERY 4 HOURS PRN, Starting on Wed09/21/17 at 0215, Until Wed09/21/17 at 1831, Pain, Fever, Headaches, mild to moderate pain, Maximum adult dose of acetaminophen is 4000 mg from all sources in 24 hours. amLODIPine (NORVASC) tablet 2.5 mg 2.5 mg, Oral, DAILY, First dose (after last reorder) on Wed09/21/17 at 0900, Until Discontinued, Hold for SBP less than 120 Given 09/21/2017 10:29 AM EDT 2.5 mg ARIPiprazole (ABILIFY) tablet 30 mg 30 mg, Oral, DAILY, First dose on Wed09/21/17 at 0900, Until Discontinued Given 09/21/2017 12:47 PM EDT 30 mg Aspirin EC tablet 325 mg 325 mg, Oral, DAILY, First dose on Wed09/21/17 at 0900, Until Discontinued, Do not crush or chew. Given 09/21/2017 8:29 AM EDT 325 mg aspirin suppository 300 mg 300 mg, Rectal, DAILY, First dose on Wed09/21/17 at 0900, Until Discontinued atropine injection 0.5 mg 0.5 mg, Intravenous, PRN, Starting on Wed09/21/17 at 0257, Until Wed09/21/17 at 1831, Symptomatic bradycardia, emergency treatment, Administer IV push for symptomatic bradycardia, may repeat every 3-5 minutes to total of 3 mg. busPIRone (BUSPAR) tablet 5 mg 5 mg, Oral, 2 TIMES DAILY, First dose on Wed09/21/17 at 1015, Until Discontinued Given 09/21/2017 10:28 AM EDT 5 mg clopidogrel (PLAVIX) tablet 75 mg 75 mg, Oral, DAILY, First dose on Wed09/21/17 at 0900, Until Discontinued Given 09/21/2017 10:28 AM EDT 75 mg dextrose 50 % solution 25 mL 25 mL, Intravenous, PRN, Starting on Wed09/21/17 at 0837, Until Wed09/21/17 at 1831, Low blood sugar, If FSBS less than 70 mg/dl and patient cannot take orally, Check FSBS every 30 minutes and repeat 25 mL of D50 IV push and notify physician if FSBS less than 70 mg/dL VESICANT EPINEPHrine injection 1 mg 1 mg, Intravenous, PRN, Starting on Wed09/21/17 at 0257, Until Wed09/21/17 at 1831, Ventricular fibrillation, Emergency order for V-FIB or Pulseless V-TACH, Emergency order for V-FIB or Pulseless V-TACH, Asystole, PEA. VESICANT glucagon (human recombinant) (GLUCAGEN) injection 1 mg 1 mg, Intramuscular, PRN, Starting on Wed09/21/17 at 0837, Until Wed09/21/17 at 1831, Low blood sugar, If FSBS less than 70 mg/dl, patient cannot take orally and without IV access, If patient is without IV access, give Glucagon 1 mg Intramuscularly, insert IV and call physician. insulin aspart U-100 (NovoLOG) injection 1-10 Units 1-10 Units, Subcutaneous, 4 TIMES DAILY WITH MEALS, First dose on Wed09/21/17 at 0845, Until Discontinued, Medium dose algorithm: FSBS? Additional Insulin? NPO/Bedtime 121-149 1 units 0 units 150-199 [...] 3 hours. Waste Sort Code = [facility] isosorbide mononitrate (IMDUR) CR tablet 60 mg 60 mg, Oral, DAILY, First dose (after last reorder) on Wed09/21/17 at 0900, Until Discontinued Given 09/21/2017 10:29 AM EDT 60 mg lamoTRIgine (LaMICtal) tablet 25 mg 25 mg, Oral, 2 TIMES DAILY, First dose on Wed09/21/17 at 0900, Until Discontinued Given 09/21/2017 10:28 AM EDT 25 mg loratadine (CLARITIN) tablet 10 mg 10 mg, Oral, DAILY, First dose on Wed09/21/17 at 1015, Until Discontinued Given 09/21/2017 10:29 AM EDT 10 mg metFORMIN XR (GLUCOPHAGE-XR) tablet 500 mg 500 mg, Oral, DAILY WITH MEAL, First dose on Wed09/21/17 at 0900, Until Discontinued Given 09/21/2017 10:28 AM EDT 500 mg metoprolol (LOPRESSOR) tablet 25 mg 25 mg, Oral, 2 TIMES DAILY, First dose on Wed09/22/17 at 0900, Until Discontinued, Hold for SBP less than 100 or pulse less than 55 miconazole (MICATIN) 2 % powder Topical, EVERY 12 HOURS SCHEDULED (2 times per day), 84 doses, First dose on Wed09/21/17 at 0900, Last dose on Wed11/01/17 at 2100, Application site: ananya- area Given 09/21/2017 8:29 AM EDT miconazole (MICATIN) 2 % powder Topical, PRN, Starting on Wed09/21/17 at 0404, Until Wed09/21/17 at 1831, Wound Care, Application site: ananya- area nitroGLYCERIN (NITROSTAT) SL tablet 0.4 mg 0.4 mg, Sublingual, EVERY 5 MIN PRN, Starting on Wed09/21/17 at 0257, Until Wed09/21/17 at 1831, Chest pain, 0.4 mg = 1 Tab sublingual q5 min x 3 for chest pain, then notify MD if unrelieved. Administer for angina/chest pain prior to administration of analgesics for angina. omega-3 acid ethyl esters (LOVAZA) capsule 1 g 1 g, Oral, 2 TIMES DAILY, First dose on Wed09/21/17 at 1015, Until Discontinued Given 09/21/2017 10:28 AM EDT 1 g ondansetron (ZOFRAN) injection 4 mg 4 mg, Intravenous, EVERY 6 HOURS PRN, Starting on Wed09/21/17 at 0210, Until Wed09/21/17 at 1831, Nausea ondansetron (ZOFRAN) tablet 4 mg 4 mg, Oral, EVERY 6 HOURS PRN, Starting on Wed09/21/17 at 0210, Until Wed09/21/17 at 1831, Nausea pantoprazole (PROTONIX) tablet 40 mg 40 mg, Oral, DAILY, First dose on Wed09/21/17 at 0900, Until Discontinued, Do not crush or chew Given 09/21/2017 10:28 AM EDT 40 mg ranolazine (RANEXA) SR tablet 1,000 mg 1,000 mg, Oral, EVERY 12 HOURS SCHEDULED (2 times per day), First dose on Wed09/21/17 at 0900, Until Discontinued Given 09/21/2017 10:28 AM EDT 1,000 mg Saccharomyces boulardii (FLORASTOR) capsule 250 mg 250 mg, Oral, 2 TIMES DAILY, First dose on Wed09/21/17 at 0900, Until Discontinued Given 09/21/2017 10:28 AM EDT 250 mg sodium chloride 0.9 % 500 mL IV bolus Intravenous, ONCE, 1 dose, On Wed09/20/17 at 2200, at 967.7 mL/hr IV Started 09/20/2017 10:00 PM EDT 967.7 mL/hr sodium chloride 0.9 % 500 mL IV bolus Intravenous, ONCE, 1 dose, On Wed09/20/17 at 2330, at 491.8 mL/hr IV Started 09/20/2017 11:37 PM EDT 491.8 mL/hr sodium chloride 0.9% IV line flush 50 mL 50 mL, Intravenous, at 150-600 mL/hr, PRN, Starting on Wed09/20/17 at 2133, Until Wed09/21/17 at 1831, Line Care, Flush with a minimum of 20 mL after IVPB to insure complete administration of the dose. May use the saline infusion to back flush IVPB tubing as needed., Use this order to document priming and flushing IV line after medication administration. sodium chloride 0.9% syringe 5 mL 5 mL, Intravenous, PRN, Starting on Wed09/20/17 at 2133, Until Wed09/21/17 at 1831, Line Care, Flush with 5 mL saline pre/post IVP, and 5 mL prior to IVPB or blood product administration. Protocol for PERIPHERAL IV saline lock maintenance, flush with 3-5 mL saline syringe every 8 hours., Flush every shift or after IV medication documented in this encounter Discontinued Medications Medication Sig Discontinue Reason Start Date End Da te glipiZIDE (GLUCOTROL) 10 mg Oral Tablet Take 10 mg by mouth 2 times daily (with meals). Stop Taking at Discharge 09/21/2017 aspirin 81 mg Oral Tablet, Chewable Take 1 Tab by mouth daily. Stop Taking at Discharge 04/14/2017 09/21/2017 lisinopril (PRINIVIL;ZESTRIL) 20 mg Oral Tablet Take 20 mg by mouth daily. Stop Taking at Discharge 09/21/2017 cloNIDine HCl (CATAPRES) 0.1 mg Oral Tablet Take 1 Tab by mouth daily. Hold for SBP <90 Stop Taking at Discharge 08/06/2017 09/21/2017 metoprolol 75 mg Oral Tablet Take 75 mg by mouth 2 times daily. Stop Taking at Discharge 08/06/2017 09/21/2017 documented as of this encounter Historical Medications * This list may reflect changes made after this encounter. busPIRone (BUSPAR) 5 mg Oral Tablet Take 5 mg by mouth 2 times daily. hydrocortisone 1 % Top Cream Apply 1 % topically 2 times daily. 8 risperiDONE (RISPERDAL) 0.5 mg Oral Tablet Take 0.5 mg by mouth nightly. 9 pantoprazole (PROTONIX) 40 mg Oral Tablet, Delayed Release (E.C.) Take 40 mg by mouth. 2 tabs at bedtime 9 omega-3 acid ethyl esters (LOVAZA) 1 gram Oral Capsule Take 1 g by mouth 2 times daily. 9 Melatonin 3 mg Oral Tablet Take 5 mg by mouth nightly. 9 loratadine (CLARITIN) 10 mg Oral Tablet Take 10 mg by mouth daily. 8 added in this encounter Active and Recently Administered Medications Times are shown in EDT. Scheduled Medication Order 09/19/2017 09/20/2017 09/21/2017 acetaminophen (OFIRMEV) infusion 1,000 mg (COMPLETED) 1,000 mg, Intravenous, ONCE, 1 dose, On Wed09/20/17 at 2300, Administer over 15 Minutes, Maximum adult dose of acetaminophen is 4000 mg from all sources in 24 hours. 2301 (IV Started - Provider: Jahaira Ghosh)2324 (Stopped - Provider: Jahaira Ghosh) amLODIPine (NORVASC) tablet 2.5 mg 2.5 mg, Oral, DAILY, First dose (after last reorder) on Wed09/21/17 at 0900, Until Discontinued, Hold for SBP less than 120 1029 (Given - Provid er: Payton Lemus RN) ARIPiprazole (ABILIFY) tablet 30 mg 30 mg, Oral, DAILY, First dose on Wed09/21/17 at 0900, Until Discontinued 1247 (Given - Provid er: Payton Lemus RN) Aspirin EC tablet 325 mg(Linked Group 1) 325 mg, Oral, DAILY, First dose on Wed09/21/17 at 0900, Until Discontinued, Do not crush or chew. 0829 (Given - Provid er: Payton Lemus RN) aspirin suppository 300 mg(Linked Group 1) 300 mg, Rectal, DAILY, First dose on Wed09/21/17 at 0900, Until Discontinued 08 (See Alternativ e - Provider: Payton Lemus RN) atorvastatin (LIPITOR) tablet 20 mg 20 mg, Oral, NIGHTLY, First dose on Wed09/21/17 at 0300, Until Discontinued 0300 (Due) busPIRone (BUSPAR) tablet 5 mg 5 mg, Oral, 2 TIMES DAILY, First dose on Wed09/21/17 at 1015, Until Discontinued 8 (Given - Provid er: Payton Lemus, ROLF) clopidogrel (PLAVIX) tablet 75 mg 75 mg, Oral, DAILY, First dose on Wed09/21/17 at 0900, Until Discontinued 102 (Given - Provid er: Payton Lemus, ROLF) ferrous sulfate tablet 325 mg 325 mg, Oral, 2 TIMES DAILY WITH MEALS, First dose on Wed09/21/17 at 0800, Until Discontinued 1028 (Not Given - Provider: Payton Lemus RN - Reason: Medication not available) insulin aspart U-100 (NovoLOG) injection 1-10 Units 1-10 Units, Subcutaneous, 4 TIMES DAILY WITH MEALS, First dose on Wed09/21/17 at 0845, Until Discontinued, Medium dose algorithm: FSBS? Additional Insulin? NPO/Bedtime 121-149 1 units 0 units 150-199 [...] least 3 hours. Waste Sort Code = [facility] 0917 (Not Given - Provider: Payton Lemus RN - Reason: Order parameters not met)0425 (Not Given - Provider: Payton Lemus RN - Reason: Order parameters not met) insulin glargine (LANTUS) injection 28 Units 28 Units, Subcutaneous, NIGHTLY, First dose on Wed09/21/17 at 0300, Until Discontinued, Do not mix with other insulins Waste Sort Code = [facility] 0300 (Due) isosorbide mononitrate (IMDUR) CR tablet 60 mg 60 mg, Oral, DAILY, First dose (after last reorder) on Wed09/21/17 at 0900, Until Discontinued 1029 (Given - Provid er: Payton Lemus RN) lamoTRIgine (LaMICtal) tablet 25 mg 25 mg, Oral, 2 TIMES DAILY, First dose on Wed09/21/17 at 0900, Until Discontinued 1028 (Given - Provid er: Payton Lemus RN) loratadine (CLARITIN) tablet 10 mg 10 mg, Oral, DAILY, First dose on Wed09/21/17 at 1015, Until Discontinued 1029 (Given - Provid er: Payton Lemus RN) melatonin tablet 5 mg 5 mg, Oral, NIGHTLY, First dose on Wed09/21/17 at 2100, Until Discontinued metFORMIN XR (GLUCOPHAGE-XR) tablet 500 mg 500 mg, Oral, DAILY WITH MEAL, First dose on Wed09/21/17 at 0900, Until Discontinued 1028 (Given - Provid er: Payton Lemus RN) metoprolol (LOPRESSOR) tablet 25 mg 25 mg, Oral, 2 TIMES DAILY, First dose on Wed09/22/17 at 0900, Until Discontinued, Hold for SBP less than 100 or pulse less than 55 miconazole (MICATIN) 2 % powder Topical, EVERY 12 HOURS SCHEDULED (2 times per day), 84 doses, First dose on Wed09/21/17 at 0900, Last dose on Wed11/01/17 at 2100, Application site: ananya- area 0829 (Given - Provid er: Payton Lemus RN) omega-3 acid ethyl esters (LOVAZA) capsule 1 g 1 g, Oral, 2 TIMES DAILY, First dose on Wed09/21/17 at 1015, Until Discontinued 1028 (Given - Provid er: Payton Lemus RN) pantoprazole (PROTONIX) tablet 40 mg 40 mg, Oral, DAILY, First dose on Wed09/21/17 at 0900, Until Discontinued, Do not crush or chew 1028 (Given - Provid er: Payton Lemus RN) ranolazine (RANEXA) SR tablet 1,000 mg 1,000 mg, Oral, EVERY 12 HOURS SCHEDULED (2 times per day), First dose on Wed09/21/17 at 0900, Until Discontinued 1028 (Given - Provid er: Payton Lemus RN) risperiDONE (RisperDAL) tablet 0.5 mg 0.5 mg, Oral, NIGHTLY, First dose on Wed09/21/17 at 2100, Until Discontinued Saccharomyces boulardii (FLORASTOR) capsule 250 mg 250 mg, Oral, 2 TIMES DAILY, First dose on Wed09/21/17 at 0900, Until Discontinued 1028 (Given - Provid er: Payton Lemus RN) sertraline (ZOLOFT) tablet 200 mg 200 mg, Oral, NIGHTLY, First dose on Wed09/21/17 at 2100, Until Discontinued sodium chloride 0.9 % 500 mL IV bolus (COMPLETED) Intravenous, ONCE, 1 dose, On Wed09/20/17 at 2200, at 967.7 mL/hr 2200 (IV Started - Provider: Jahaira Ghosh)2259 (Stopped - Provider: Jahaira Ghosh) sodium chloride 0.9 % 500 mL IV bolus (COMPLETED) Intravenous, ONCE, 1 dose, On Wed09/20/17 at 2330, at 491.8 mL/hr 2337 (IV Started - Provider: Jahaira Ghosh) 0104 (Stopped - Provider: Jahaira Ghosh) traZODone (DESYREL) tablet 50 mg 50 mg, Oral, NIGHTLY, First dose on Wed09/21/17 at 0300, Until Discontinued 0300 (Due) PRN Medication Order 09/19/2017 09/20/2017 09/21/2017 acetaminophen (TYLENOL) suppository 650 mg(Linked Group 2) 650 mg, Rectal, EVERY 4 HOURS PRN, Starting on Wed09/21/17 at 0215, Until Wed09/21/17 at 1831, Pain, Fever, Headaches, mild to moderate pain, Maximum adult dose of acetaminophen is 4000 mg from all sources in 24 hours. acetaminophen (TYLENOL) tablet 650 mg(Linked Group 2) 650 mg, Oral, EVERY 4 HOURS PRN, Starting on Wed09/21/17 at 0215, Until Wed09/21/17 at 1830, Pain, Fever, Headaches, mild to moderate pain, Maximum adult dose of acetaminophen is 4000 mg from all sources in 24 hours. atropine injection 0.5 mg 0.5 mg, Intravenous, PRN, Starting on Wed09/21/17 at 0257, Until Wed09/21/17 at 1830, Symptomatic bradycardia, emergency treatment, Administer IV push for symptomatic bradycardia, may repeat every 3-5 minutes to total of 3 mg. dextrose 50 % solution 25 mL 25 mL, Intravenous, PRN, Starting on Wed09/21/17 at 0837, Until Wed09/21/17 at 1830, Low blood sugar, If FSBS less than 70 mg/dl and patient cannot take orally, Check FSBS every 30 minutes and repeat 25 mL of D50 IV push and notify physician if FSBS less than 70 mg/dL VESICANT EPINEPHrine injection 1 mg 1 mg, Intravenous, PRN, Starting on Wed09/21/17 at 0257, Until Wed09/21/17 at 1830, Ventricular fibrillation, Emergency order for V-FIB or Pulseless V-TACH, Emergency order for V-FIB or Pulseless V-TACH, Asystole, PEA. VESICANT glucagon (human recombinant) (GLUCAGEN) injection 1 mg 1 mg, Intramuscular, PRN, Starting on Wed09/21/17 at 0837, Until Wed09/21/17 at 1830, Low blood sugar, If FSBS less than 70 mg/dl, patient cannot take orally and without IV access, If patient is without IV access, give Glucagon 1 mg Intramuscularly, insert IV and call physician. miconazole (MICATIN) 2 % powder Topical, PRN, Starting on Wed09/21/17 at 0404, Until Wed09/21/17 at 1830, Wound Care, Application site: ananya- area nitroGLYCERIN (NITROSTAT) SL tablet 0.4 mg 0.4 mg, Sublingual, EVERY 5 MIN PRN, Starting on Wed09/21/17 at 0257, Until Wed09/21/17 at 1830, Chest pain, 0.4 mg = 1 Tab sublingual q5 min x 3 for chest pain, then notify MD if unrelieved. Administer for angina/chest pain prior to administration of analgesics for angina. ondansetron (ZOFRAN) injection 4 mg(Linked Group 3) 4 mg, Intravenous, EVERY 6 HOURS PRN, Starting on Wed09/21/17 at 0210, Until Wed09/21/17 at 1831, Nausea ondansetron (ZOFRAN) tablet 4 mg(Linked Group 3) 4 mg, Oral, EVERY 6 HOURS PRN, Starting on Wed09/21/17 at 0210, Until Wed09/21/17 at 183, Nausea sodium chloride 0.9% IV line flush 50 mL 50 mL, Intravenous, at 150-600 mL/hr, PRN, Starting on Wed09/20/17 at 2133, Until Wed09/21/17 at 183, Line Care, Flush with a minimum of 20 mL after IVPB to insure complete administration of the dose. May use the saline infusion to back flush IVPB tubing as needed., Use this order to document priming and flushing IV line after medication administration. sodium chloride 0.9% syringe 5 mL 5 mL, Intravenous, PRN, Starting on Wed09/20/17 at 2133, Until Wed09/21/17 at 183, Line Care, Flush with 5 mL saline pre/post IVP, and 5 mL prior to IVPB or blood product administration. Protocol for PERIPHERAL IV saline lock maintenance, flush with 3-5 mL saline syringe every 8 hours., Flush every shift or after IV medication Linked Groups Order Group 1: Aspirin EC tablet 325 mgJump to med 325 mg, Oral, DAILY, First dose on Wed09/21/17 at 0900, Until Discontinued, Do not crush or chew. Or aspirin suppository 300 mgJump to med 300 mg, Rectal, DAILY, First dose on Wed09/21/17 at 0900, Until Discontinued Group 2: acetaminophen (TYLENOL) tablet 650 mgJump to med 650 mg, Oral, EVERY 4 HOURS PRN, Starting on Wed09/21/17 at 0215, Until Wed09/21/17 at 1831, Pain, Fever, Headaches, mild to moderate pain, Maximum adult dose of acetaminophen is 4000 mg from all sources in 24 hours. Or acetaminophen (TYLENOL) suppository 650 mgJump to med 650 mg, Rectal, EVERY 4 HOURS PRN, Starting on Wed09/21/17 at 0215, Until Wed09/21/17 at 1831, Pain, Fever, Headaches, mild to moderate pain, Maximum adult dose of acetaminophen is 4000 mg from all sources in 24 hours. Group 3: ondansetron (ZOFRAN) tablet 4 mgJump to med 4 mg, Oral, EVERY 6 HOURS PRN, Starting on Wed09/21/17 at 0210, Until Wed09/21/17 at 1831, Nausea Or ondansetron (ZOFRAN) injection 4 mgJump to med 4 mg, Intravenous, EVERY 6 HOURS PRN, Starting on Wed09/21/17 at 0210, Until Wed09/21/17 at 183, Nausea documented in this encounter Orders Medications Ordered That Gaurav ht Not Have Been Administered Count Last Ordered Date First Ordered Date acetaminophen (OFIRMEV) infusion 1,000 mg 1 09/21/2017 acetaminophen (TYLENOL) suppository 650 mg 2 09/21/2017 acetaminophen (TYLENOL) tablet 650 mg 3 amLODIPine (NORVASC) tablet 2.5 mg 1 2017 aspirin suppository 300 mg 1 09/21/2017 atorvastatin (LIPITOR) tablet 20 mg 1 09/21 atropine injection 0.5 mg 1 09/21/2017 cloNIDine HCl (CATAPRES) tablet 0.1 mg 1 dextrose 50 % solution 25 g 1 09/21/2017 dextrose 50 % solution 25 mL 2 09/21/2017 EPINEPHrine injection 1 mg 1 09/21/2017 ferrous sulfate tablet 325 mg 1 09/21/2017 fUROsemide (LASix) tablet 20 mg 1 8 glipiZIDE (GLUCOTROL) tablet 10 mg 1 2017 glucagon (human recombinant) (GLUCAGEN) injection 1 mg 2 09/21/2017 insulin aspart U-100 (NovoLO G) injection 1-10 Units 2 09/21/2017 insulin glargine (LANTUS) in jection 28 Units 1 09/21/2017 isosorbide mononitrate (IMDU R) CR tablet 60 mg 1 09/21/2017 lisinopril (PRINIVIL;ZESTril) tablet 20 mg 1 09/21/2017 melatonin tablet 5 mg 1 09/21/2017 metoprolol (LOPRESSOR) tablet 25 mg 1 09/21 metoprolol tartrate Tab 25 mg 1 09/21/2017 metoprolol tartrate Tab 50 mg 1 09/21/2017 miconazole (MICATIN) 2 % powder 1 8 nitroGLYCERIN (NITROSTAT) SL tablet 0.4 mg 2 09/21/2017 ondansetron (ZOFRAN) injection 4 mg 2 09/21 ondansetron (ZOFRAN) tablet 4 mg 1 09/22/19 18 risperiDONE (RisperDAL) tablet 0.5 mg 1 sertraline (ZOLOFT) tablet 200 mg 1 018 traZODone (DESYREL) tablet 50 mg 1 09/22/19 18 sodium chloride 0.9% IV line flush 50 mL 1 09/20/2017 sodium chloride 0.9% syringe 5 mL 1 018 Nursing Count Last Ordered Date First Orde red Date ADMISSION 1 09/20/2017 CARDIAC MONITORING 1 09/20/2017 IV Count Last Ordered Date First Orde red Date SALINE LOCK IV 1 09/20/2017 Transfer Count Last Ordered Date First Orde red Date BED REQUEST 1 09/20/2017 Discharge Count Last Ordered Date First Orde red Date DISCHARGE PATIENT 1 09/21/2017 documented in this encounter Additional Health Concerns Assessment Noted Time A fall risk assessment has been complete d for the patient 04/21/2017 10:52 AM EST documented as of this encounter 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
--- OUTSIDE RECORDS SUMMARY | 2024-02-16 14:53 | XMS_ITS | Encounter Summary ---
Author Organization [place] [address] Care Team Providers Care Bioinformatics Analyst Name Role Phone Sharee Segovia APRN Primary Care Provider [phone] Katheryn Allen RN Unavailable Unavailable Khalida Hunter CUTTING AND PRINTING MACHINE OPERATOR, COS Unavailable Unavai lable Reason for Visit * Reason Onset Date Comments Cardiac Rehab 08/23/2017 Referral Encounter Details Date Type Department Care Team (Late st Contact Info) Description 08/23/2017 Telephone [facility] Cardiac Rehab [address] [place] [id number] Cielo Lr, Clerical Staff Cardiac Rehab (Referral) Social History Tobacco Use Types Packs/Day Years [...] encounter Miscellaneous Notes * Telephone Encounter - Cielo Lr, Clerical Staff - 08/23/2017 9:03 AM EDT Pt lives at [facility], pt does not drive but transportation is offered where she lives, when calling for f/u ask for [place] at [facility] [phone] or [phone] - [facility] would be closer to resident. 07/29/17 s/w Amara (pt???s nurse) and she has to talk to Administration about the program and will get back with me and let me know if pt will be able to participate documented in this encounter Plan of Treatment [...] documented as of this encounter Care Teams Bioinformatics Analyst Relationship Specialty Start Date End Date Sharee Segovia APRN [address] [address] [place] [phone] PCP - General Nurse Practitioner-Family 09/21/16 Katheryn Allen, RN Health Advocate Registered Nurse 08/04/17 09/14/17 Khalida Hunter LSW, COS Tread Builder 08/09/17 08/29/17 documented as of this encounter
--- OUTSIDE RECORDS SUMMARY | 2024-02-16 14:53 | XMS_ITS | Encounter Summary ---
Author Organization [place] [address] Care Team Providers Care Twisting Frame Changer Name Role Phone Sharee Segovia APRN Primary Care Provider [phone] Katheryn Allen RN Unavailable Unavailable Khalida Hunter, COS Unavailable Unavai lable Encounter Details Date Type Department Care Team (Late st Contact Info) Description 08/17/2017 Social Work [facility] Man[facility] [address] Appointment [place] [address] Khalida Hunter, MARIAELENA, COS Social History Tobacco [...] Telephone Encounter - Khalida Hunter LSW - 08/23/2017 9:52 AM EDT 08/23/17: LISA spoke to Amara. Amara stated she was given the information for [facility]. Amara stated she will call with pt this week to see if any options available in [place]. Amara asked for a f/u call next week. Amara understands pts reason for leaving, but Amara really hopes pt stays there bc she gets all the care she needs. Amara stated pt spoke to her son and son even told pt he travels so much he wont be around much to help. * Telephone Encounter - Khalida Hunter LSW - 08/17/2017 11:09 AM EDT 08/17/17: LISA contacted [facility] to discuss Adult Foster Care agencies in [place] #[phone], option 8. LISA spoke to [place] and she advised to contact [facility] which is located in [place], [place] (same as [facility]). 08/17/17: LISA contacted [facility] #[phone]. SW had to leave for [place]. 08/17/17: SW spoke to pts nurse for the day. Nurse stated they will try and get in touch with son, as well as aRje. Nurse stated still kind of the talk of her moving, but nothing definite by ptyet. SW advised nurse that SW will f/u next to see if any progress made. documented in this encounter Plan of Treatment [...] documented as of this encounter Care Teams Twisting Frame Changer Relationship Specialty Start Date End Date Sharee Segovia APRN [address] [place], [place] [phone] PCP - General Nurse Practitioner-Family 09/21/16 Katheryn Allen, RN Health Advocate Registered Nurse 08/04/17 09/14/17 Khalida Hunter LSW, COS Kitchen Steward/Stewardess 08/09/17 08/29/17 documented as of this encounter
--- OUTSIDE RECORDS SUMMARY | 2024-02-16 14:53 | XMS_ITS | Encounter Summary ---
Author Organization [place] [address] Care Team Providers Care Enterprise Engineer Name Role Phone Sharee Segovia APRN Primary Care Provider [phone] [phone] Katheryn Allen RN Unavailable Unavailable Reason for Visit * Reason Comments Medication Refill Encounter Details Date Type Department Care Team (Late Contact Info) Description 08/04/2017 Refill [facility] [address] [place] [address] Joanna Hitchcock MD Medication Refill Social [...] Tablet Sustained Release 12 hrIndications:Stab le angina (HCC) TAKE ONE TABLET BY MOUTH EVERY 12 HOURS 60 Tab 08/04/2017 08/30/2017 documented in this encounter Plan of Treatment [...] TABLET BY MOUTH EVERY 12 HOURS Reorder 06/28/2017 08/04/2017 documented as of this encounter Additional Health Concerns Assessment Noted Time A fall risk assessment has been complete d for the patient 04/21/2017 10:52 AM EST documented as of this encounter Care Teams Enterprise Engineer Relationship Specialty Start Date End Date Sharee Segovia APRN [address] [place] [phone] PCP - General Nurse Practitioner-Family 09/21/16 Katheryn Allen, RN Health Advocate Registered Nurse 08/04/17 09/14/17 documented as of this encounter
--- OUTSIDE RECORDS SUMMARY | 2024-02-16 14:53 | XMS_ITS | Encounter Summary ---
Author Organization [place] [address] Care Team Providers Care Dementia Program Director Name Role Phone Sharee Segovia TOWBOAT OPERATOR Primary Care Provider [phone] [phone] Katheryn Allen RN Unavailable Unavailable Reason for Visit * Reason Comments Medication Refill Encounter Details Date Type Department Care Team (Late Contact Info) Description 08/30/2017 Refill [facility] [address] [place] [address] Joanna Hitchcock MD Medication Refill Social [...] Yes 08/09/2017 9:08 AM Birdie Wilkinson RMRonaldo * Does this person have difficulty dressing or bathing? Answer Date of Assessment Author No 08/09/2017 9:08 AM Birdie Wilkinson THEO * Because of a physical, mental or emotional condition, does this person have difficulty doing errands alone such as visiting a doctor's office or shopping? Answer Date of Assessment Author Yes 08/09/2017 9:08 AM Birdie Wilkinson THEO documented as of this encounter Mental Status * Because of a physical, mental or emotional condition, does this person have serious difficulty concentrating, remembering or making decisions? Answer Entry Date Author Yes 08/09/2017 9:08 AM Birdie Wilkinson THEO documented in this encounter Ordered Prescriptions Prescription Sig Dispense Quantity Refills Last Filled Start Date End Date RANEXA 1,000 mg Oral Tablet Sustained Release 12 hrIndications:Stab le angina (HCC) TAKE ONE TABLET BY MOUTH EVERY 12 HOURS 60 Tab 08/30/2017 10/06/2017 documented in this encounter Plan of [...] TABLET BY MOUTH EVERY 12 HOURS Reorder 08/04/2017 08/30/2017 documented as of this encounter Additional Health Concerns Assessment Noted Time A fall risk assessment has been complete d for the patient 04/21/2017 10:52 AM EST documented as of this encounter Care Teams Dementia Program Director Relationship Specialty Start Date End Date Sharee Segovia APRN [address] [place], [place] [address] PCP - General Nurse Practitioner-Family 09/21/16 Katheryn Allen, RN Health Advocate Registered Nurse 08/04/17 09/14/17 documented as of this encounter
--- OUTSIDE RECORDS SUMMARY | 2024-02-16 14:53 | XMS_ITS | Encounter Summary ---
Author Organization [place] [address] Care Team Providers Care Research Computing Specialist Name Role Phone Sharee Segovia APRN Primary Care Provider [phone] Katheryn Allen RN Unavailable Unavailable Khalida Hunter B[employer] PLANT MANAGER, COS Unavailable Unavai lable Reason for Referral * Vascular Imaging (Routine) - Closed Specialty Diagnoses / Procedures Referred By Arsh patel Referred To Contact Radiology Diagnoses History of CVA (cerebrovascular accident) Procedures [facility] CAROTID DUPLEX BILATERAL Sharee Segovia APRN [address] [place] [address] Phone: tel: fax: Referral ID Status Reason Start Date Expiration Date Visits Re quested Visits Authorized [id number] Closed 08/09/2017 08/10/2019 1 1 * Mammography (Routine) - Closed Specialty Diagnoses / Procedures Referred By Arsh patel Referred To Contact Radiology Diagnoses Encounter for screening mammogram for breast cancer Procedures MM MAMMO DIGITAL SCREENING W CAD BILAT CHG SCREENING MAMMOGRAPHY BI 2-VIEW BREAST INC CAD DE SCR MAMMO BI INCL CAD Sharee Segovia APRN [address] [place] [address] Phone: tel: fax: Referral ID Status Reason Start Date Expiration Date Visits Re quested Visits Authorized [id number] Closed 08/09/2017 08/10/2019 1 1 * Consultation (Routine) - Closed Specialty Diagnoses / Procedures Referred By Arsh patel Referred To Contact Psychologist-Cognitive & Behavioral Diagnoses Hemiparesis affecting left side as late effect of stroke (HCC) Schizoaffective disorder, depressive type (HCC) History of CVA (cerebrovascular accident) Frequent hospital admissions Sharee Segovia, NIKO [address] [place] [address] Phone: tel: fax: Referral ID Status Reason Start Date Expiration Date Visits Re quested Visits Authorized [id number] Closed 08/09/2017 08/09/2018 1 99 Question Answer Services Behavioral Health (Only for Offices with an Integrated Health Specialist on site) Comments Lives at [facility] in [place], wants to get relocated to a similar location in [place]. Had multiple health problems and psych history, needs assistance with meds and personal care Reason for Visit * Reason Comments Hospital Follow Up Been in for Chest pa ins and CT. Pt sts that she has not been feeling any better. pt sts that she is still having pains a couple times aday. pt sts that she only seen the heart Dr when she had the heart attack Annual Exam Encounter Details Date Type Department Care Team (Late st Contact Info) Description 08/09/2017 9:00 AM EDT Office Visit [facility] [address] [place] [phone] Sharee Segovia, NIKO [address] [place] [id number] Coronary artery disease involving [place] coronary artery of [place] heart with unstable angina pectoris (HCC) (Primary Dx); Hemiparesis affecting left side as late effect of stroke (HCC); Schizoaffective disorder, depressive type (HCC); NSTEMI (non-ST elevated myocardial infarction) (HCC); History of CVA (cerebrovascular accident); Frequent hospital admissions; Insomnia, persistent; Encounter for screening mammogram for breast cancer; Screening for colon cancer; Essential hypertension; 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); Type 2 diabetes mellitus with stage 3 chronic kidney disease, with long-term current use of insulin (HCC) Social History Tobacco Use Types Packs/Day [...] Sign Reading Time Taken Comments Blood Pressure 134/84 08/09/2017 9:06 AM EDT Pulse 56 08/09/2017 9:06 AM EDT Temperature 36.8 ??C (98.2 ??F) 08/09/2017 9:06 AM ED T Respiratory Rate 18 08/09/2017 9:06 AM EDT Oxygen Saturation 95% 08/09/2017 9:06 AM EDT Inhaled Oxygen Concentration - - Weight 104.8 kg (231 lb) 08/09/2017 9:06 AM EDT Height 174 cm (5' 8.5 ) 08/09/2017 9:06 AM EDT Body Mass Index 34.61 08/09/2017 9:06 AM EDT documented in this encounter Functional Status * Is the person deaf or does he/she have serious difficulty hearing? Answer Date of Assessment Author No 08/09/2017 9:08 AM Fátima Wilkinson RMA * Is the person blind or does he/she have serious difficulty seeing even when wearing glasses? Answer Date of Assessment Author No 08/09/2017 9:08 AM Fátima Wilkinson RMA * Does this person have serious difficulty walking or climbing stairs? Answer Date of Assessment Author Yes 08/09/2017 9:08 AM Fátima Wilkinson RMA * Does this person have difficulty dressing or bathing? Answer Date of Assessment Author No 08/09/2017 9:08 AM LEFátima Lnyn RMA * Because of a physical, mental or emotional condition, does this person have difficulty doing errands alone such as visiting a doctor's office or shopping? Answer Date of Assessment Author Yes 08/09/2017 9:08 AM Fátima Wilkinson RMA documented as of this encounter Mental Status * Because of a physical, mental or emotional condition, does this person have serious difficulty concentrating, remembering or making decisions? Answer Entry Date Author Yes 08/09/2017 9:08 AM Fátima Wilkinson RMA documented in this encounter Ordered Prescriptions Prescription Sig Dispense Quantity Refills Last Filled Start Date End Date traZODone (DESYREL) 50 mg Oral TabletIndications: Insomnia, persistent Take 1 Tab by mouth nightly. 30 Tab 2 08/09/2017 9 insulin glargine (LANTUS) 100 unit/mL SubQ SolutionIndication s: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),Type 2 diabetes mellitus with stage 3 chronic kidney disease, with long-term current use of insulin ([facility]) 30 units sq nightly 10 mL 2 08/09/2017 9 documented in this encounter Progress Notes * Sharee Segovia ARNP - 08/09/2017 9:00 AM EDT Assessment Diagnoses and all orders for this visit: Coronary artery disease involving [place] coronary artery of [place] heart with unstable angina pectoris (HCC) Comments: managed by cardiology Overview: July 2017 ? Ost RCA lesion 60% [...] takeoff. Ostial RCA 20%, no dampening noted. Hemiparesis affecting left side as late effect of stroke (HCC) (Chronic) Comments: uses walker Orders: - AMB REFERRAL TO SOCIAL WORK Schizoaffective disorder, depressive type (HCC) (Chronic) Comments: stable Orders: - AMB REFERRAL TO SOCIAL WORK NSTEMI (non-ST elevated myocardial infarction) ([facility]) History of CVA (cerebrovascular accident) - AMB REFERRAL TO SOCIAL WORK - [facility] CAROTID DUPLEX BILATERAL; Future Frequent hospital admissions Comments: will call social work. Orders: - AMB REFERRAL TO SOCIAL WORK Insomnia, persistent Comments: resume trazadone Orders: - traZODone (DESYREL) 50 mg Oral Tablet; Take 1 Tab by mouth nightly. Dispense: 30 Tab; Refill: 2 Encounter for screening mammogram for breast cancer - MM MAMMO DIGITAL SCREENING W CAD BILAT; Future Screening for colon cancer - FECAL HEME SCREEN; Future Essential hypertension Comments: stable Orders: - TSH REFLEX; Future - T4, FREE (THYROXINE); Future 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) (Chronic) - HEMOGLOBIN A1C; Future - insulin glargine (LANTUS) 100 unit/mL SubQ Solution; 30 units sq nightly Dispense: 10 mL; Refill:2 Type 2 diabetes mellitus with stage 3 chronic kidney disease, with long-term current use of insulin(HCC) (Chronic) - HEMOGLOBIN A1C; Future - insulin glargine (LANTUS) 100 unit/mL SubQ Solution; 30 units sq nightly Dispense: 10 mL; Refill:2 Progress Note: Vitals: 08/09/17 0906 BP: 134/84 Pulse: 56 Resp: 18 Temp: 98.2 ??F (36.8 ??C) TempSrc: Temporal SpO2: 95% Weight: 231 lb (104.8 kg) Height: 5' 8.5 (1.74 m) Chief Complaint Patient presents with ??? Hospital Follow Up Been in for Chest pains and CT. Pt sts that she has not been feeling any better. pt sts that she isstill having pains a couple times aday. pt sts that she only seen the heart Dr when she had the heart attack ??? Annual Exam HPI: here for follow up to hospitalization. She has had numerous admissions. She lives in an assisted living center in [place]. She gets chest pain frequently and gets admitted. Chest pain: Having intermittent sharp pains and heaviness. States she doesn't always call the staff. She does follow up with cardiology. She was felt to not have flow limiting disease. Diabetes: checks blood sugar and has been having good control. Pt [place], her family is in [place] and she would like to move back to that area to be closer to her family. Social work referral will be made. Preventative care: she is reluctant to get some of the services done. Refuses mammogram and colonoscopy. Review of Systems Eyes: Positive for visual disturbance. Respiratory: Positive for chest tightness and shortness of breath. Cardiovascular: Positive for chest pain and palpitations. Neurological: Positive for dizziness. Negative for headaches. Physical Exam Constitutional: Well developed, well nourished, no distress. Makeup very animated and bright on eyes. Head: Normocephalic and atraumatic. No sinus pressure Ears: Canals normal. TM's pearly mederos with bright light reflex. Mouth: No oral lesions, no pharyngeal erythema. No tonsillar enlargement or exudate. Eyes: Conjunctiva normal. EOM intact, PERRLA. Neck: Supple, normal ROM, no thyroid enlargement, no adenopathy. Cardiovascular: Normal rate and rhythm. Normal S1 and S2. No murmurs, gallops or rub Pulmonary: Clear anterior and posterior. No wheezes, rales, or rhonchi. Abdomen: Soft, normal bowel sounds, non tender, no mass. Neurological: Alert and oriented. CN grossly intact. Skin: Warm and dry. Color natural. No rashes or lesions. Normal turgor and brisk cap refill. Psychological: Normal mood and affect with normal judgement. M/S: uses walker to assist with ambulation. Patient Active Problem List Diagnosis ??? History of CVA (cerebrovascular accident) ??? Essential hypertension ??? Gastrointestinal hemorrhage associated with gastroduodenitis ??? Hemiparesis affecting left side as late effect of stroke ([facility]) ??? ELIU (iron deficiency anemia) ??? Coronary artery disease involving [place] coronary artery of [place] heart with unstable angina pectoris ([facility]) ??? Chronic diastolic CHF (congestive heart failure) ([facility]) ??? S/P ablation of atrial flutter ??? Well controlled type 2 diabetes mellitus with peripheral neuropathy ([facility]) ??? Mood disorder ([facility]) ??? Recurrent major depressive disorder, in partial remission ([facility]) ??? Schizoaffective disorder, depressive type (HCC) ??? Intellectual disability ??? Chest pain ??? NSTEMI (non-ST elevated myocardial infarction) (HCC) Past Medical History: Diagnosis Date ??? [...] AND BRUSHING; Surgeon: Be Brown MD; Location: [facility] END[facility]; Service: Endoscopy Social History Social History [...] ??? None Social History Narrative Lives at [facility] Has two children and two grandchildren. Is Family History Problem Relation Age of Onset ??? Cancer Mother larnyx cancer ??? Heart Disease Sister ??? No Known Problems Son ??? Seizures Daughter Allergies Allergen Reactions ??? Compazine [Prochlorperazine Edisylate] ??? [facility] ??? Pentazocine Hcl ??? Prochlorperazine Maleate ??? [place]win [Pentazocine Lactate] Outpatient Encounter Prescriptions as of 08/09/2017 Medication Sig Dispense Refill ??? acetaminophen 325 mg Oral Tab Take 650 mg by mouth every 4 hours as needed for Pain. ??? ubtms-K-gebnghwkloijh (ANTI-GAS ORAL) Take by mouth 3 times daily as needed. ??? amLODIPine (NORVASC) 2.5 mg Oral Tablet Take 1 Tab by mouth daily. 30 Tab 11 ??? ARIPiprazole (ABILIFY) 30 mg Oral Tablet Take 1 Tab by mouth daily. 30 Tab 0 ??? aspirin 81 mg Oral Tablet, Chewable Take 1 Tab by mouth daily. 60 Tab 0 ??? atorvastatin (LIPITOR) 20 mg Oral Tablet TAKE ONE TABLET BY MOUTH NIGHTLY 30 Tab 1 ? ? cloNIDine HCl (CATAPRES) 0.1 mg Oral Tablet Take 1 Tab by mouth daily. Hold for SBP <90 30 Tab 2 ??? clopidogrel (PLAVIX) 75 mg Oral Tablet [...] by mouth 2 times daily (with meals). ??? insulin glargine (LANTUS) 100 unit/mL SubQ Solution 30 units sq nightly 10 mL 2 ??? [DISCONTINUED] insulin glargine (LANTUS) 100 unit/mL SubQ Solution Subcutaneous (Inject under the skin) 28 Units every evening. 10 mL 12 ??? inulin (FIBER CHOICE, INULIN,) 1.5 gram Oral Tablet, Chewable Take by mouth 2 times daily. ??? isosorbide mononitrate (IMDUR) 60 mg Oral Tablet Sustained Release 24 hr TAKE ONE TABLET BY MOUTH ONCE DAILY 30 Tab 1 ??? lamoTRIgine (LAMICTAL) 25 mg Oral Tablet Take 1 Tab by mouth 2 times daily. 60 Tab 0 ??? lisinopril (PRINIVIL;ZESTRIL) 20 mg Oral Tablet Take 20 mg by mouth daily. ??? loperamide (IMODIUM) 2 mg Oral Capsule Take 2 mg by mouth 2 times daily. ??? metFORMIN XR (GLUCOPHAGE-XR) 500 mg Oral Tablet Sustained Release 24 hr Take 500 mg by mouth daily (with breakfast). ??? metoprolol 75 mg Oral Tablet Take 75 mg by mouth 2 times daily. 60 Tab 2 ??? nitroGLYCERIN (NITROSTAT) 0.4 mg SL Tablet, Sublingual Place 1 Tab under the tongue every 5 minutes as needed for Chest pain. 20 Tab 2 ??? nystatin (MYCOSTATIN) Top Powder Apply topically 2 times daily. ??? RANEXA 1,000 mg Oral Tablet Sustained Release 12 hr TAKE ONE TABLET BY MOUTH EVERY 12 HOURS 60 Tab 0 ??? sertraline (ZOLOFT) 100 mg Oral Tablet Take 200 mg by mouth daily. Reported on 08/12/2016 ??? [DISCONTINUED] pantoprazole (PROTONIX) 40 mg Oral Tablet, Delayed Release (E.C.) TAKE ONE TABLET BY MOUTH ONCE DAILY 30 Tab 6 ??? [DISCONTINUED] traZODone (DESYREL) 300 mg Oral Tablet Take 1 Tab by mouth nightly. (Patient taking differently: Take 150 mg by mouth nightly.) 30 Tab 0 ??? traZODone (DESYREL) 50 mg Oral Tablet Take 1 Tab by mouth nightly. 30 Tab 2 ??? [DISCONTINUED] valACYclovir (VALTREX) 1 gram Oral Tablet Take by mouth 3 times daily. No facility-administered encounter medications on file as of 08/09/2017. See time date stamps in the EMR for other pertient history components reviewed as part of today's encounter. [facility] Documentation Medication Compliance: Compliant most of the time Understanding of Current Medications: Fair Self-Management Ability: Fair Willingness to Adopt Healthy Behaviors: Fair Potential Barriers to completing treatment plans today: Cognitive [facility] Flowsheet was completed/reviewed as part of today's visit. Educated patient regarding the diagnosis, medication/treatment, goals, self- management tools and instructions based on their care plan. They verbalized understanding of the education given on the After Visit Summary [AVS] for today's visit. A copy of the AVS was provided either in writing and/or via [employer]. A new medicine was prescribed during this [...] of any questions and answered accordingly. * Silva Potts - 08/09/2017 9:00 AM EDT Venipuncture in the right antecubital vein with 21 gauge needle, length 1 1/2 inch. documented in this encounter Miscellaneous Notes * Addendum Note - Fátima Amor RMA - 08/09/2017 9:00 AM EDT Addended by: FÁTIMA AMOR on: 08/11/2017 04:29 PM Modules accepted: Orders documented in this encounter Plan of Treatment Scheduled Orders Name Type Priority Associated Diagnoses Order Schedule MM MAMMO DIGITAL SCREENING W CAD BILAT Imaging Routine Encounter for screening mammogram for breast cancer 1 Occurrences starting 08/09/2017 until 08/10/2019 [facility] CAROTID DUPLEX BILATERAL Imaging Cardiology Routine History of CVA (cerebrovascular accident) 1 Occurrences starting 08/09/2017 until 08/10/2019 Scheduled Referrals Name Type Priority Associated Diagnoses Orde r Schedule AMB REFERRAL TO SOCIAL WORK Outpatient Referral Routine Hemiparesis affecting left side as late effect of stroke (HCC) Schizoaffective disorder, depressive type (HCC) History of CVA (cerebrovascular accident) Frequent hospital admissions Ordered: 08/09/2017 documented as of this encounter Goals Goal [...] Procedure Name Priority Date/Time Associated Diagnosis Comments FECAL HEME (FIT) CANCER SCREEN Routine 08/11/2017 4:29 PM EDT Screening for colon cancer TSH REFLEX Routine 08/09/2017 9:57 AM EDT Essential hypertension T4, FREE (THYROXINE) Routine 08/09/2017 9:57 AM EDT Essential hypertension HEMOGLOBIN A1C Routine 08/09/2017 9:57 AM EDT 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) Type 2 diabetes mellitus with stage 3 chronic kidney disease, with long-term current use of insulin (HCC) documented in this encounter Results * (ABNORMAL) FECAL HEME SCREEN (08/11/2017 4:29 PM EDT) Fecal Heme Scrn Positive(A ) Negative 08/11/2017 8:34 PM EDT [facility] Stool COLON STRUCTURE / Unknown 08/11/2017 4:29 PM EDT 08/11/2017 4:29 PM EDT us Sharee Segovia LOGISTICAL ENGINEER IMMUNOLOGY ORDERABLES Fin al Result [facility] [address] [place] [id number] * T4, FREE (THYROXINE) (08/09/2017 9:57 AM EDT) Free T4 0.86 0.80 - 2.00 ng/dL 08/09/2017 4:36 PM EDT [employer] [employer] [employer] Blood VENOUS BLOOD / Unknown Venipuncture / Unknown 08/09/2017 9:57 AM EDT 08/09/2017 9:58 AM EDT Narrative [employer] - 08/09/2017 4:36 PM EDT Ingestion of charles doses of biotin (>5 mg/day) taken within 8 hours of drawing blood sample can interfere with this immunoassay test. Sharee Juliette LOGISTICAL ENGINEER CHEMISTRY ORDERABLES Mildred l Result Performing Organization Address [facility] de Phone Number [facility] [employer] [address] , [place] [phone] * (ABNORMAL) TSH REFLEX (08/09/2017 9:57 AM EDT) TSH Reflex 4.820(H) 0.270 - 4.200 mcIU/mL 08/09/2017 4:13 PM EDT Patient Feed Blood VENOUS BLOOD / Unknown Venipuncture / Unknown 08/09/2017 9:57 AM EDT 08/09/2017 9:58 AM EDT Narrative Patient Feed - 08/09/2017 4:13 PM EDT Ingestion of charles doses of biotin (>5 mg/day) taken within 8 hours of drawing blood sample can interfere with this immunoassay test. Sharee Segovia LOGISTICAL ENGINEER CHEMISTRY ORDERABLES Mildred l Result Performing Organization Address [facility] Phone Number [facility] [employer] [address] [place] [address] , [place] [address] * HEMOGLOBIN A1C (08/09/2017 9:57 AM EDT) Hgb A1C 6.6 <=7.0 % 08/09/2017 4:06 PM EDT Patient Feed Est. Avg Glucose 143 mg/dL 08/09/2017 4:06 PM EDT Patient Feed Blood Venipuncture / Unknown 08/09/2017 9:57 AM EDT 08/09/2017 9:58 AM EDT Narrative Patient Feed - 08/09/2017 4:06 PM EDT Reference Interval for Hgb A1c Hgb A1c ?Interpretation ? < 6.0 ?Non-Diabetic Range 6.0 - 7.0 ? ADA Therapeutic Target ??> 7.0 ?Action suggested us Sharee Segovia LOGISTICAL ENGINEER CHEMISTRY ORDERABLES Mildred glendy Result Patient Feed [address] [facility] , [place] [address] documented in this encounter Visit Diagnoses Diagnosis Coronary artery disease involving [place] coronary artery of [place] heart with unstable angina pectoris (HCC)- Primary Hemiparesis affecting left side as late effect of stroke (HCC) Hemiplegia affecting unspecified side, late effect of cerebrovascular disease Schizoaffective disorder, depressive type (HCC) Schizoaffective disorder, unspecified condition NSTEMI (non-ST elevated myocardial infarction) (HCC) Acute myocardial infarction, subendocardial infarction, episode of care unspecified History of CVA (cerebrovascular accident) Transient ischemic attack (TIA), and cerebral infarction without residual deficits Frequent hospital admissions Insomnia, persistent Persistent disorder of initiating or maintaining sleep Encounter for screening mammogram for breast cancer Screening for colon cancer Special screening for malignant neoplasms, colon Essential hypertension Unspecified essential hypertension 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) Type II or unspecified type diabetes mellitus with neurological manifestations, not stated as uncontrolled Type 2 diabetes mellitus with stage 3 chronic kidney disease, with long-term current use of insulin (HCC) documented in this encounter Discontinued Medications Medication Sig Discontinue Reason Start Date End Da te pantoprazole (PROTONIX) 40 mg Oral Tablet, Delayed Release (E.C.) TAKE ONE TABLET BY MOUTH ONCE DAILY Alternate therapy 11/26/2016 08/09/2017 traZODone (DESYREL) 300 mg Oral Tablet Take 1 Tab by mouth nightly. Alternate therapy 05/12/2017 08/09/2017 valACYclovir (VALTREX) 1 gram Oral Tablet Take by mouth 3 times daily. Alternate therapy 08/09/2017 insulin glargine (LANTUS) 100 unit/mL SubQ Solution Subcutaneous (Inject under the skin) 28 Units every evening. Reorder 02/23/2017 08/09/2017 documented as of this encounter Additional Health Concerns Assessment Noted Time A fall risk assessment has been complete d for the patient 04/21/2017 10:52 AM EST documented as of this encounter Care Teams Research Computing Specialist Relationship Specialty Start Date End Date Sharee Segovia APRN [address] [place], [place] [id number] PCP - General Nurse Practitioner-Family 09/21/16 Katheryn Allen, RN Health Advocate Registered Nurse 08/04/17 09/14/17 Khalida Hunter LSW, COS Disability Program Navigator 08/09/17 08/29/17 documented as of this encounter
--- OUTSIDE RECORDS SUMMARY | 2024-02-16 14:53 | XMS_ITS | Encounter Summary ---
Author Organization [place] [address] Care Team Providers Care Rn Clinical Quality Name Role Phone Sharee Segovia APRN Primary Care Provider [phone] Katheryn Allen RN Unavailable Unavailable Encounter Details Date Type Department Care Team (Late st Contact Info) Description 08/30/2017 Social Work SEP Care Managment [address] Appointment [place] [address] Khalida Hunter, UTILITIES SERVICE INVESTIGATOR, COS Social History Tobacco Use Types Packs/Day [...] Telephone Encounter - Khalida Hunter LSW - 08/30/2017 11:03 AM EDT 08/30/17: SW spoke to Amara, pts nurse. It has been decided pt to stay at facility she is in. [facility] was contacted, but limited options for pt in [place]. Amara mentioned just recently they learned pt was raised by a clan member and she has a hard time adjusting/being around others of color.Amara stated others in the facility have learned to put up with her. Amara feels pt gets great careat their facility. Amara stated son does stay in contact with pt by phone frequently. LISA will close referral at this time due to pt going to remain at [facility]. Main reason pt wanted to move was due to the man she loved is now in love with another man. Pt seems to be doing well there. documented in this encounter Plan of Treatment [...] ideal body weight General No Silva Mathew RMRonaldo HEMOGLOBIN A1C < 7.0 Result Component 6.6( 9 9:49 AM EST) No Quincy Silva Colby RMA documented as of this encounter Visit Diagnoses Not on filedocumented in this encounter Additional Health Concerns Assessment Noted Time A fall risk assessment has been complete d for the patient 04/21/2017 10:52 AM EST documented as of this encounter Care Teams Rn Clinical Quality Relationship Specialty Start Date End Date Sharee Segovia APRN [address] [place], [place] [address] PCP - General Nurse Practitioner-Family 09/21/16 Katheryn Allen, RN Health Advocate Registered Nurse 08/04/17 09/14/17 documented as of this encounter
--- OUTSIDE RECORDS SUMMARY | 2024-02-16 14:53 | XMS_ITS | Encounter Summary ---
Author Organization [place] [address] Care Team Providers Care Resaw Operator Name Role Phone Sharee Segovia APRN Primary Care Provider [phone] [phone] Katheryn Allen RN Unavailable Unavailable Khalida Hunter AUTOMATIC BEAM WARPER TENDER, COS Unavailable Unavai lable Reason for Visit * Reason Onset Date Comments Care Transition 08/13/2017 Care Management - Chart Review 08/13/2017 Encounter Details Date Type Department Care Team (Late st Contact Info) Description 08/13/2017 Patient Outreach [facility] [address] [place] [id number] Katheryn Allen, dredge deckhand; Care Management - Chart Review Social History [...] in this encounter Progress Notes * Katheryn Allen, ROLF - 08/13/2017 4:09 PM EDT Amara from the [facility] called me & left a message. I attempted to call her back at the end of the day & the [facility] primary phone, rang & rang. I was not able to leave a message. This will complete my calls on this patient at this time. I will move this patient to a level 1 & remove my name from the Care Team. The patient lives in a Detention & has a nurse, Amara that takes care ofher & is a advocate for her as well. Amara has my name & contact number if needed. I can follow the patient in the future if the need would arise. documented in this encounter Plan of Treatment Not on file documented as of this encounter Goals Goal Patient Goal Type Associated Problems Recent Progress Patient-Stated? Author Blood Pressure < 140/90 Blood Pressure 124/52(2018 4:00 PM EDT) No Silva Mathew S, RMA BMI (Calculated) < 30 General 35.6(10/06/19 19 4:56 PM EDT) No Quincy Silva S RMA Maintain a healthy diet, exercise regularly and maintain an ideal body weight General No Laila Mathewjericho Colby, RMA HEMOGLOBIN A1C < 7.0 Result Component 6.6( 9 9:49 AM EST) No Quincy Silva Colby RMA documented as of this encounter Visit Diagnoses Not on filedocumented in this encounter Additional Health Concerns Assessment Noted Time A fall risk assessment has been complete d for the patient 04/21/2017 10:52 AM EST documented as of this encounter Care Teams Resaw Operator Relationship Specialty Start Date End Date Sharee Segovia APRN [address] [place] [id number] PCP - General Nurse Practitioner-Family 09/21/16 Katheryn Allen, ROLF Health Advocate Registered Nurse 08/04/17 09/14/17 Khalida Hunter LSW, COS Funeral Service Licensee 08/09/17 08/29/17 documented as of this encounter
--- OUTSIDE RECORDS SUMMARY | 2024-02-16 14:53 | XMS_ITS | Encounter Summary ---
Author Organization [place] [address] Care Team Providers Care Canadian Bacon Tier Name Role Phone Sharee Segovia APRN Primary Care Provider [phone] [phone] Katheryn Allen RN Unavailable Unavailable Reason for Visit * Reason Onset Date Comments Care Management - Chart Review 08/04/2017 Encounter Details Date Type Department Care Team (Late st Contact Info) Description 08/04/2017 Patient Outreach [facility]formation [address] [place] [address] Marisabel Lr, RN Care Management - Chart [...] on file documented as of this encounter Progress Notes * Marisabel Lr RN - 08/04/2017 8:55 AM EDT Triage reviewed chart, pt appropriate for Level 2/HCA to review. Diagnosis of nstemi, was in [facility] a week. documented in this encounter Plan of Treatment [...] documented as of this encounter Care Teams Canadian Bacon Tier Relationship Specialty Start Date End Date Sharee Segovia APRN [address] [place], [place] [id number] PCP - General Nurse Practitioner-Family 09/21/16 Katheryn Allen, ROLF Health Advocate Registered Nurse 08/04/17 09/14/17 documented as of this encounter
--- OUTSIDE RECORDS SUMMARY | 2024-02-16 14:53 | XMS_ITS | Encounter Summary ---
Author Organization [place] [address] Care Team Providers Care Senior Business Objects Developer Name Role Phone Sharee Segovia APRN Primary Care Provider [phone] -[phone] Katheryn Allen RN Unavailable Unavailable Khalida Hunter RESEARCH ASST, COS Unavailable Unavai lable Reason for Visit * Reason Onset Date Comments Care Transition 08/12/2017 Care Management - Chart Review 08/12/2017 Encounter Details Date Type Department Care Team (Late st Contact Info) Description 08/12/2017 Patient Outreach [facility] [address] [place] [phone] Katheryn Allen, salesperson trailers and motor homes; Care Management - Chart Review Social History [...] Progress Notes * Katheryn Allen RN - 08/12/2017 2:41 PM EDT I called to Follow-up on the patient. I talked to Amara - the patient's nurse. She did not have time to talk to me today, she stated the doctor was in & rounding on patient's & she had to give report. She did inform me that the patient wants to move, but her son still needs to be talked to about it. Film Mounter is involved with that per notes. She also mentioned that the patient had blood in her stool per our tests here & she is to Follow-up with GI. She is not able to get the patient in until 10/14/2017. She stated since the patient was not having any trouble- pain or diarrhea at this time, that was the earliest she can get it. I gave Amara my name & contact number for her to call me back if needed. She stated she will try to call me back tomorrow. I will continue to Fol low the patient as scheduled. documented in this encounter Plan [...] as of this encounter Care Teams Senior Business Objects Developer Relationship Specialty Start Date End Date Sharee Segovia APRN [address] [place], [place] [address] PCP - General Nurse Practitioner-Family 09/21/16 Katheryn Allen, ROLF Health Advocate Registered Nurse 08/04/17 09/14/17 Khalida Hunter LSW, COS Railcar Switcher 08/09/17 08/29/17 documented as of this encounter
--- OUTSIDE RECORDS SUMMARY | 2024-02-16 14:53 | XMS_ITS | Encounter Summary ---
Author Organization [place] [address] Care Team Providers Care Statistics Tutor Name Role Phone Sharee Segovia APRN Primary Care Provider [phone] [phone] Katheryn Allen RN Unavailable Unavailable Reason for Visit * Reason Onset Date Comments Care Transition 08/04/2017 Care Management - Chart Review 08/04/2017 Hospital Follow Up 08/04/2017 Encounter Details Date Type Department Care Team (Late st Contact Info) Description 08/04/2017 Patient Outreach [facility] [address] [place] [phone] Katheryn Allen, equine pharmacology technician; Care Management - Chart Review; Hospital Follow Up Social History Tobacco Use Types [...] as of this encounter Progress Notes * Katheryn Allen, RN - 08/04/2017 9:52 AM EDT Hospital Discharge on 08/01/17, related to NSTEMI (non-ST elevated myocardial infarction). The patient does meet the criteria for HCA to follow at this time patient will be made a level 2. I called the patient for a Follow-up. I talked to the patient's nurse- Amara at the [facility] where she lives. Amara takes care of the patient & her meds. I reviewed all of the patient's D/C meds with her on the phone & the changes as well. Amara stated she had all of her meds & was taking them. Amara reported her blood sugar this morning was 124 & her b/p was 125/69 & pulse was 58. I reminded her to hold the patient's Clonidine med- if SBP was less than 90 per D/C instructions. Amara stated she had all of the D/C paperwork & it was in front of her while I was talkingto her. I reminded Amara of the patient's Hospital F/U appointment tomorrow here at our office at 9:00 am. Amara stated that the patient can not come, they needed 3-4 days notice prior to an appointment with transportation with [facility]. I rescheduled the patient for 08/09/17 at 9:00 am. I also reminded her that the patient needed to follow-up with Dr. Devries as well in 4 weeks, Amara was given the number to call & schedule that as well. Amara has our offices contact number & will call if needed. I will continue to F/U with the patient as scheduled. documented in this [...] documented as of this encounter Care Teams Statistics Tutor Relationship Specialty Start Date End Date Sharee Segovia APRN [address] [place] [phone] PCP - General Nurse Practitioner-Family 09/21/16 Katheryn Allen, RN Health Advocate Registered Nurse 08/04/17 09/14/17 documented as of this encounter
--- OUTSIDE RECORDS SUMMARY | 2024-02-16 14:53 | XMS_ITS | Encounter Summary ---
Author Organization [place] [address] Care Team Providers Care Jd Edwards Consultant Name Role Phone Sharee Segovia APRN Primary Care Provider [phone] [phone] Katheryn Allen RN Unavailable Unavailable Khalida Hunter, COS Unavailable Unavai lable Encounter Details Date Type Department Care Team (Late st Contact Info) Description 08/12/2017 Social Work [facility] Care Managment [address] [place] [address] Khalida Hunter, MARIAELENA, COS Social History Tobacco [...] Telephone Encounter - Khalida Hunter LSW - 08/12/2017 1:42 PM EDT 08/12/17: LISA contacted Jimbo Espinoza for suggestion of housing [facility]. Left vm for Liz to return call. * Telephone Encounter - Khalida Hunter LSW - 08/12/2017 1:37 PM EDT 08/12/17: LISA tried to contact pts son, but no answer. LISA left vm. documented in this encounter Plan [...] documented as of this encounter Care Teams Jd Edwards Consultant Relationship Specialty Start Date End Date Sharee Segovia APRN [address] [place], [place] [phone] PCP - General Nurse Practitioner-Family 09/21/16 Katheryn Allen, ROLF Health Advocate Registered Nurse 08/04/17 09/14/17 Khalida Hunter LSW, COS Pile Driving Superintendent 08/09/17 08/29/17 documented as of this encounter
--- OUTSIDE RECORDS SUMMARY | 2024-02-16 14:53 | XMS_ITS | Encounter Summary ---
Author Organization [place] [address] Care Team Providers Care Research Animal Facility Supervisor Name Role Phone Sharee Segovia APRN Primary Care Provider [phone] [phone] Katheryn Allen RN Unavailable Unavailable Khalida Hunter, COS Unavailable Unavai lable Encounter Details Date Type Department Care Team (Late st Contact Info) Description 08/11/2017 Social Work [facility] Care Managment [address] Appointment [place] [address] Khalida Hunter, MARIAELENA, COS Social History Tobacco [...] Telephone Encounter - Khalida Hunter LSW - 08/11/2017 10:57 AM EDT 08/11/17: SW spoke to Amara, pts nurse. Amara stated pt was okay living there until a man she fell inlove with and is still in love with left her for another man. Pt does not want to continue to be around him everyday. Pt wanting to move back to [place] to be closer to her family. Amara stated there aren't many/if any places like the one she is at in [place]. Amara stated pt resides in this [facility]. Amara going to let pt know that SW spoke to her and will continue to research facilities in [place], as well as try and get in touch with pts son. SW will f/u next week. documented in this encounter Plan of Treatment Not on file documented as of this encounter Goals Goal Patient Goal Type Associated Problems Recent Progress Patient-Stated? Author Blood Pressure < 140/90 Blood Pressure 124/52(2018 4:00 PM EDT) No Quincy, Silva S, RMA BMI (Calculated) < 30 General 35.6(10/06/19 19 4:56 PM EDT) No Silva Mathew S [...] as of this encounter Care Teams Research Animal Facility Supervisor Relationship Specialty Start Date End Date Sharee Segovia APRN [address] [place], [place] [phone] PCP - General Nurse Practitioner-Family 09/21/16 Katheryn Allen, ROLF Health Advocate Registered Nurse 08/04/17 09/14/17 Khalida Hunter LSW, COS Child Care Centre Manager 08/09/17 08/29/17 documented as of this encounter
--- OUTSIDE RECORDS SUMMARY | 2024-02-16 14:54 | XMS_ITS | Encounter Summary ---
Author Organization [place] [address] Care Team Providers Care French Weaver Name Role Phone Sharee Segovia APRN Primary Care Provider [phone] Reason for Visit * Reason Comments Shortness of Breath pt c/o feeling short of breath most of today; pt from [facility]--[place] last week * Auth/Cert/Inpt Specialty Diagnoses / Procedures Referred By Contac t Referred To Contact Critical Care Medicine Diagnoses Angina at rest (HCC) Elevated troponin [place] [address] Phone: tel: fax: Referral ID Status Reason Start Date Expiration Date Visits Re quested Visits Authorized [id number] 08/02/2017 08/02/2018 1 1 Encounter Details Date Type Department Care Team (Latest Contact Info) Description 08/01/2017 1:29 PM EDT - 08/03/2017 5:15 PM EDT Hospital Encounter [facility] [place] [id number] Colleen Ghosh MD [address] [place] [id number] Eunice Polanco MD Angina at rest (HCC) (Primary Dx); Elevated troponin Discharge Disposition: Home or Self Care Social [...] Sign Reading Time Taken Comments Blood Pressure 123/67 08/03/2017 9:46 AM EDT Pulse 55 08/03/2017 9:46 AM EDT Temperature 36.7 ??C (98.1 ??F) 08/03/2017 9:46 AM ED T Respiratory Rate 18 08/03/2017 9:46 AM EDT Oxygen Saturation 93% 08/03/2017 12:49 PM EDT Inhaled Oxygen Concentration - - Weight 105.2 kg (232 lb) 08/01/2017 1:24 PM EDT Height 174 cm (5' 8.5 ) 08/01/2017 1:24 PM EDT Body Mass Index 34.76 08/01/2017 1:24 PM EDT documented in this encounter Discharge Summaries * Monie Rajput MD - 08/03/2017 5:15 PM EDT [facility] Patient Name: Faby Palm : 1950 Admit Date: 08/01/2017 Discharge Date: 08/03/2017 Admitting Physician: Eunice Polanco MD Discharging Physician: Monie Rajput MD Reason for Hospitalization: Active Hospital Problems *NSTEMI (non-ST elevated myocardial infarction) ([facility]) Mood disorder ([facility]) 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 She came from [facility]. She came in on ranexa, imdur and amlodipine. Card Cath 07/25/17: ?? Ost RCA lesion 60% stenosed. ?? Mid RCA lesion 40% stenosed. ?? Mid LAD lesion 50% stenosed No further recs from cardiology as they think the pain is atypical and reproducible. ?? Labs and imaging follow-up needed: none Consultants: cardiology Discharge Exam: Vitals: 08/03/17 1249 BP: Pulse: Resp: Temp: SpO2: 93% CONSTITUTIONAL: Alert and oriented x 3. NAD. CARDIOVASCULAR: normal rate and regular rhythm. No murmur heard. PULMONARY/CHEST: CTA bilat.. No W/R/R. ABDOMINAL: soft, non-tender; normal BS. MUSCULOSKELETAL: no atrophy or effusions. No edema. NEURO: non-focal, no lateralizing weakness. PSYCHIATRIC: normal mood and affect. Not suicidal/homicidal. Correct Full Discharge Med List: Medication List CONTINUE taking these medications acetaminophen 325 mg Tab Dose: 650 mg Refills: 0 Commonly known as: TYLENOL amLODIPine 2.5 mg Tab Dose: 2.5 mg Qty: 30 Tab Refills: 11 Commonly known as: NORVASC 2.5 mg, Oral, DAILY ANTI-GAS ORAL Refills: 0 ARIPiprazole 30 mg Tab Dose: 30 mg Qty: 30 Tab Refills: 0 Commonly known as: ABILIFY 30 mg, Oral, DAILY atorvastatin 20 mg Tab [...] gram Chew Refills: 0 Generic drug: inulin fUROsemide 20 mg Tab Dose: 20 mg [...] Powd Refills: 0 Commonly known as: MYCOSTATIN sertraline 100 mg Tab Dose: 200 mg Refills: 0 Commonly known as: ZOLOFT STOP taking these medications aspirin 81 mg Chew cloNIDine HCl 0.1 mg Tab Commonly known as: CATAPRES glipiZIDE 10 mg Tab Commonly known as: GLUCOTROL lisinopril 20 mg Tab Commonly known as: PRINIVIL;ZESTril Condition at Discharge: good Disposition: Home Follow-up: Bello Devries MD [address] [place] [address] [place] [address] In 4 weeks Sharee Segovia ARNP [facility] [place] [address] On 08/05/2017 Please follow up with Sharee Segovia on August 05 at 9:15 am Monie Rajput MD 09/30/2017 documented in this encounter Discharge Instructions * Attachments The following attachments cannot be sent through Care Everywhere. * ANGINA PECTORIS (SRI LANKAN) documented in this encounter Medications at Time of Discharge atorvastatin (LIPITOR) 20 mg Oral Tablet TAKE ONE TABLET BY MOUTH NIGHTLY 30 Tab 1 03/24/2017 ferrous sulfate 325 mg (65 mg iron) Oral Tablet Take 1 Tab by mouth 2 times daily (with meals). 60 Tab 5 04/04/2015 sertraline (ZOLOFT) 100 mg Oral Tablet Take 200 mg by mouth daily. Reported on 08/12/2016 acetaminophen 325 mg Oral Tab Take 650 mg by mouth every 4 hours as needed for Pain. Pt takes 1 to 2 tabs as needed 9 amLODIPine (NORVASC) 2.5 mg Oral Tablet Take 1 Tab by mouth daily. 30 Tab 11 07/20/2017 9 ARIPiprazole (ABILIFY) 30 mg Oral Tablet Take 1 Tab by mouth daily. 30 Tab 02/23/2017 08/01/201 9 aspirin 81 mg Oral Tablet, Chewable Take 1 Tab by mouth daily. 60 Tab 04/14/2017 8 glipiZIDE (GLUCOTROL) 10 mg Oral Tablet Take 10 mg by mouth 2 times daily (with meals). 8 isosorbide mononitrate (IMDUR) 60 mg Oral [...] Refills Last Filled Start Date End Date cloNIDine HCl (CATAPRES) 0.1 mg Oral Tablet Take 1 Tab by mouth daily. Hold for SBP <90 08/02/2017 08/06/2017 documented in this encounter Discharge Disposition Disposition Code Departure Means Destination Comment s Home or Self Nursing Home [facility] documented in this encounter Progress Notes * Cece Nice RN - 08/03/2017 5:15 PM EDT Vital signs stable, patient has no complaints. Patient discharged home with med- cab. Discharge sentwith patient to be given to [facility]. IV taken out, heart monitor disconnected. ?? Transportation took patient out in wheelchair to patient entrance. * Payton Carroll RN - 08/03/2017 1:53 PM EDT 08/03/17 1349 Final Note Actual Discharge Plan 08/03/2017: CC: INITIAL AND FINAL ASSESSMENT. Chart reviewed. CC following fordc planning. CC met with patient. Patient from [facility], lives there with home care staff, independent with some assistance required prior to admission. Patient completed 5 day rehab stay at [facility] prior to readmission to hospital with NSTEMI. Patient has walker, cane, and glucometer with all supplies for home use. Denies HHC. Patient has prescription coverage and uses [facility], states meds are affordable. PCP Sharee Segovia, states she comesto the home and sees her. [facility] to transport when patient ready, nurse Cece will notify CC when ready for them to be called. CC WILL SIGN OFF. PASAR Completed Not Applicable Patient/Family Aware of Plan Yes MD Aware of Plan Yes RN Notified of Plan Yes Patient's goals for recovery Recreational activities Community Resources Medication Assistance Medicare D/Medicaid Transportation Resources Yes Adult Protective Services report made? No Domestic Violence resources No Support Groups No Chemical Dependency/Substance Abuse Resources No Patient Tool Kit Given No Meals Assistance No Clothing Assistance No Subsidized Housing Assistance Referrals No Intermediate Referrals No Assisted Living/Senior Housing Information Referrals No * Fior Guo, RN - 08/03/2017 1:27 AM EDT Patient alert and oriented x4. Patient reported feeling anxious and unable to sleep. Prn anxiety med given. Patient sleeping upon recheck. No reports of pain. Cardiology s/o. Possible d/c in AM. 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 Call light within reach. Will continue to monitor. * America Chester APRN - 08/02/2017 5:50 PM EDT Images from the original note were not included. PROGRESS NOTE Assessment/Plan: Chest pain -cardiology evaluated and felt that chest pain was atypical and no further cardiac workup was planned at this time, continue ASA, statin, plavix, Ranexa, and Imdur, -had recent cardiac cath on 07/2017 -cardiology said ok for discharge Hypertension hx but has had some hypotension -BP noted to be low, cardiology adjusted medications clonidine dose reduced to once daily -asked nurse to check BP manually Acute on Chronic Kidney Disease -creatinine 2.02 today -lisinopril and lasix on hold -repeat BMP in am -avoid nephro toxic agents Diabetes mellitus -continue accu-checks, inulin per s/s, and lantus Hx CVA -residual left-sided hemiparesis DVT prophylaxis -Lovenox Dispo: Possibly Home tomorrow refusing to go back to [facility] for rehab Active Hospital Problems Diagnosis ??? *NSTEMI (non-ST elevated myocardial infarction) (HCC) ??? Mood disorder (HCC) ??? 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 3 chronic kidney disease, with long-term current use of insulin (HCC) ??? Chronic diastolic CHF (congestive heart failure) ([facility]) Subjective: Denies any complaints chest pain, or shortness of breath Objective: BP (!) 80/40 (BP Location: Left arm, Patient Position: Semi Fowlers) Comment: asymptomatic Pulse 52 Temp 98.1 ??F (36.7 ??C) (Oral) Resp 20 Ht 5' 8.5 (1.74 m) Wt 232 lb (105.2 kg) SpO2 98% ? No BMI 34.76 kg/m?? I/O last 3 completed shifts: In: 1450.3 [P.O.:960; IV Piggyback:490.3] Out: - Weight: 232 lb (105.2 kg) Constitutional: Alert and oriented to person, place, and time. No distress. Cardiovascular: Normal rate and regular rhythm. Exam reveals no friction rub. No murmur heard. Pulmonary/Chest: Effort normal and breath sounds normal. No respiratory distress. There are no wheezes. Abdominal: Soft. Bowel sounds are normal. No distension. There is no tenderness. There is no rebound and no guarding. Musculoskeletal: No edema. Neurological: Grossly normal. Skin: Skin is warm and dry. No erythema. Labs: Laboratory data and diagnostic testing reviewed 08/02/17. America Chester APRN 08/02/2017 5:51 PM Cosigned by Monie Rajput MD at 08/02/2017 11:50 PM EDT Associated attestation - Monie Rajput MD - 08/02/2017 11:50 PM EDT I have personally seen and examined this patient. I have fully participated in the care of this patient. I have reviewed and agree with all of the pertinent information including labs, imaging, vitals, medications, history, and allergies. I agree with the advanced practive provider's assessment and plan. Assessment and plan (brief): Chest pain - cardiology signed off. On ranexa and imdure, and had recent cath. Probable discharge tomorrow Exam: gen -in no acute distress Heart - mild systolic ejection murmur noted Lungs - clear to auscultation LE - no edema. * Anaya Rome RN - 08/02/2017 10:27 AM EDT Bed alarm on, bed in lowest position, call light and belongings in reach, and side rails up x2. Patient educated on fall risk, verbalized understanding. VSS. Heart monitor on. NSR on monitor. No complaints of pain or discomfort at this time. Patient updated on plan of care. Will continue to monitor. * Ange Cody RN - 08/02/2017 5:12 AM EDT Pt refused full AM vitals and assessment. Will continue to monitor. * Ange Cody RN - 08/02/2017 1:12 AM EDT 500mL bolus ordered and infused. Will continue to monitor. * Ange Cody RN - 08/02/2017 12:24 AM EDT 08/02/17 0006 08/02/17 0011 Vitals Pulse (!) 47 -- Heart Rate Source Ship Laborer -- Cardiac Rhythm SB -- Resp 16 -- BP (!) 64/30 -- BP Location Right arm -- BP (Second Site) (!) 83/47 (!) 72/40 BP Location (Second Site) Left arm Left arm BP Method Automatic Manual Patient Position Semi Fowlers -- Message sent to MD. Will continue to monitor. * Elvira Moscoso RN - 08/01/2017 5:57 PM EDT Pt admitted to room 4408. Primary RN Larissa at bedside. Pt oriented to room, hospital and unit policies, and the GWN. Pt given non skid socks and told to call when needing assistance throughout the shift. Bed alarm activated for pt safety. Pt verbalized understanding. Skin assessment completed with primary RN Larissa. Pt found to have scattered brusing on BLE and BUE. Redness and excoriation to groin and ananya area. Powder ordered. documented in this encounter H&P Notes * Eunice Polanco MD - 08/01/2017 3:37 PM EDT [facility] History and Physical Name: Faby Palm : 1950 AGE: 67 y.o. PCP: Sharee Segovia ARNP Admitting Physician: Eunice Polanco MD Date of Admit: 08/01/2017 Chief Complaint: Chief Complaint Patient presents with ??? Shortness of Breath pt c/o feeling short of breath most of today; pt from [facility] last week History of Present Illness: This is a 67-year-old female who was recently discharged from the hospital after undergoing coronary angiogram for N STEMI and was found not to have any flow-limiting lesions and therefore did not undergo any intervention, plan was for medical management. She presents today with complaints of chest pain. Patient states that she developed sudden onset left-sided chest pain which was dullin nature about 5-6/10 occurred at rest no aggravating factors resolved by itself was not associated with shortness of breath, palpitations, diaphoresis, lightheadedness or dizziness. Past Medical History: Diagnosis Date ??? Atrial [...] Brown MD; Location: T ENDOSCOPY; Service: Endoscopy Prescriptions Prior to Admission Medication Sig Dispense Refill Last Dose ??? acetaminophen 325 mg Oral Tab Take 650 mg by mouth every 4 hours as needed for Pain. Taking at Unknown time ??? amLODIPine (NORVASC) 2.5 mg Oral Tablet Take 1 Tab by mouth daily. 30 Tab 11 08/01/2017 at 0800 ??? ARIPiprazole (ABILIFY) 30 mg Oral Tablet Take 1 Tab by mouth daily. 30 Tab 0 08/01/2017 at 0800 ??? aspirin 81 mg Oral Tablet, Chewable Take 1 Tab by mouth daily. 60 Tab 0 08/01/2017 at 0800 ??? atorvastatin (LIPITOR) 20 mg Oral Tablet TAKE ONE TABLET BY MOUTH NIGHTLY 30 Tab 1 07/31/2017 [id number] ? ? cloNIDine HCl (CATAPRES) 0.1 mg Oral Tablet Take 1 Tab by mouth 2 times daily. Hold for SBP <90 60 Tab 2 08/01/2017 at 0800 ??? clopidogrel (PLAVIX) 75 mg Oral Tablet Take 1 Tab by mouth daily. 90 Each 1 08/01/2017 at [id number] ??? ferrous sulfate 325 mg (65 mg iron) Oral Tablet Take 1 Tab by mouth 2 times daily (with meals).60 Tab 5 08/01/2017 at 0800 ??? fUROsemide (LASIX) 20 mg Oral Tablet Take 1 Tab by mouth daily. 30 Tab 0 08/01/2017 at 0800 ??? glipiZIDE (GLUCOTROL) 10 mg Oral Tablet Take 10 mg by mouth 2 times daily (with meals). 08/01/2017 at 0800 ??? isosorbide mononitrate (IMDUR) 60 mg Oral Tablet Sustained Release 24 hr TAKE ONE TABLET BY MOUTH ONCE DAILY 30 Tab 1 08/01/2017 at 0800 ??? lamoTRIgine (LAMICTAL) 25 mg Oral Tablet Take 1 Tab by mouth 2 times daily. 60 Tab 0 08/01/2017 at 0800 ??? lisinopril (PRINIVIL;ZESTRIL) 20 mg Oral Tablet Take 20 mg by mouth daily. 08/01/2017 at 0800 ??? loperamide (IMODIUM) 2 mg Oral Capsule Take 2 mg by mouth 2 times daily. 08/01/2017 at 0800 ??? metFORMIN XR (GLUCOPHAGE-XR) 500 mg Oral Tablet Sustained Release 24 hr Take 500 mg by mouth daily (with breakfast). 08/01/2017 at 0800 ??? metoprolol (LOPRESSOR) 25 mg Oral Tablet Take 1 Tab by mouth 2 times daily. 180 Tab 3 08/01/2017at 0800 ??? nitroGLYCERIN (NITROSTAT) 0.4 mg SL Tablet, Sublingual Place 1 Tab under the tongue every 5 minutes as needed for Chest pain. 20 Tab 2 Taking at Unknown time ??? nystatin (MYCOSTATIN) Top Powder Apply topically 2 times daily. Taking at Unknown time ??? pantoprazole (PROTONIX) 40 mg Oral Tablet, Delayed Release (E.C.) TAKE ONE TABLET BY MOUTH ONCEDAILY 30 Tab 6 08/01/2017 at 0800 ??? RANEXA 1,000 mg Oral Tablet Sustained Release 12 hr TAKE ONE TABLET BY MOUTH EVERY 12 HOURS 60 Tab 0 08/01/2017 at 0800 ??? sertraline (ZOLOFT) 100 mg Oral Tablet Take 200 mg by mouth daily. Reported on 08/12/2016 08/01/2017 at 0800 ??? traZODone (DESYREL) 300 mg Oral Tablet Take 1 Tab by mouth nightly. (Patient taking differently: Take 150 mg by mouth nightly.) 30 Tab 0 07/31/2017 at 2100 ??? gybbk-D-moukvgnmzihpw (ANTI-GAS ORAL) Take by mouth 3 times daily as needed. Not Taking at Unknown time ??? insulin glargine (LANTUS) 100 unit/mL SubQ Solution Subcutaneous (Inject under the skin) 28 Units every evening. 10 mL 12 Taking Differently at Unknown time ??? inulin (FIBER CHOICE, INULIN,) 1.5 gram Oral Tablet, Chewable Take by mouth 2 times daily. Not Taking at Unknown time ??? metoprolol (LOPRESSOR) 50 mg Oral Tablet TAKE 1 TABLET BY MOUTH 2 TIMES DAILY (Patient not taking: Reported on 08/01/2017) 60 Tab 2 Not Taking at Unknown time ??? valACYclovir (VALTREX) 1 gram Oral Tablet Take by mouth 3 times daily. Not Taking at Unknown time Allergies Allergen Reactions ??? Compazine [Prochlorperazine Edisylate] ??? [place] ??? Pentazocine Hcl ??? Prochlorperazine Maleate ??? [...] in the HPI: ?? Constitutional: No fever, chills ?? Eyes: No visual disturbance ?? HENT: No headache, hearing loss, epistaxis, sore throat, or hoarseness ?? Lungs: No SOB, cough, hemoptysis, or pleuritic chest pain ?? Cardiovascular: No PND or orthopnea ?? Endocrine: No polyuria, polydypsia, or polyphagia ?? GI: No abdominal pain, nausea, vomiting, hematemesis, diarrhea, constipation, melena or bright red blood per rectum ?? : No dysuria, frequency, hesitancy, or hematuria ?? Musculoskeletal: No myalgias or muscle weakness ?? Neurologic: No focal numbness or weakness ?? Skin: No edema, jaundice ?? Psychiatric: No homicidal or suicidal ideation OBJECTIVE: Physical Exam: Vitals: 08/01/17 1729 BP: 97/56 Pulse: 50 Resp: 16 Temp: 98.2 ??F (36.8 ??C) SpO2: 99% Weight: 232 lb (105.2 kg) Constitutional: mild distress Eyes: PERRL, No pallor/icterus HENT: Atraumatic head,mucosa moist, Neck- normal range of motion, no tenderness, supple noJVD Respiratory: No respiratory distress, normal breath sounds, no rales, no wheezing Cardiovascular: Normal rate, normal rhythm, no murmurs GI: Soft, nondistended, normal bowel sounds, nontender no mass, no rebound, no guarding :not examined Musculoskeletal: no tenderness, no deformities. No pedal edema Integument: no rash Lymphatic: No palpable lymphadenopathy Neurologic: Alert & oriented x 3, Strength 5/5 in all extremities. Psychiatric: Speech and behavior appropriate Labs: CBC: Lab Results Component Value Date WBC 7.6 08/01/2017 RBC 4.69 08/01/2017 HGB 13.6 08/01/2017 HCT 40.9 08/01/2017 MCV 87.4 08/01/2017 MCHC 33.1 08/01/2017 RDW 14.4 08/01/2017 MPV 9.6 08/01/2017 BMP: Lab Results Component Value Date NA 141 08/01/2017 K 4.5 08/01/2017 CL 100 08/01/2017 CO2 30 (H) 08/01/2017 BUN 19 08/01/2017 CREATININE 1.36 (H) 08/01/2017 CALCIUM 9.8 08/01/2017 GFRAFRAM 47 08/01/2017 GFRNONAFRAM 41 08/01/2017 GLU 142 (H) 08/01/2017 Hepatic: No results found for: ALKPHOS, ALT, AST, PROT, LABBILI, BILIDIR, IBILI, LABALBU No results found for: AMYLASE, LIPASE U/A:No results found for: SPECGRAV, UAPROTEIN, BLOODU, NITRITE, LEUKOCYTESUR, WBCUA, RBCUA Coagulation: No results found for: INR, APTT Cardiac markers: No results found for: CKMB, MYOGLOBIN ABGs:No results found for: PH, PCO2, PO2, HCO3, TCO2, BASEEXCESS, O2SAT, INSPIREDO2, SPECIMENTYPE Radiology: Xr Chest Ap Portable Result Date: 08/01/2017 CLINICAL HISTORY: -SHORTNESS OF BREATH. COMPARISON: 07/22/2017. TECHNIQUE: XR CHEST AP PORTABLE on 08/01/2017 2:23 PM. FINDINGS: There is minimal atelectasis in the left lung but the lungs are otherwise clear. There is no pneumothorax or pleural effusion. The heart size and pulmonary vascularity are stable. The upper abdomen and osseous structures are unremarkable. No acute findings. Ek Ekg 12 Lead Result Date: 08/01/2017 NOTICE: Preliminary tracing available for review; Final Interpretation by physician to follow. Stationary ECG Study [employer] [place] Interpretive Statements SINUS BRADYCARDIA LOW QRS VOLTAGE IN PRECORDIAL LEADS INFERIOR MYOCARDIAL INFARCTION, OF INDETERMINATE AGE ANTEROSEPTAL MYOCARDIAL INFARCTION, PROBABLY OLD Electronically Signed On 08-01-2017 16:46:17 EDT by Alok Pinon MD Results for orders placed during the hospital encounter of 08/01/17 EK EKG 12 LEAD Impression Stationary ECG Study [employer] [place] Interpretive Statements SINUS BRADYCARDIA LOW QRS VOLTAGE IN PRECORDIAL LEADS INFERIOR MYOCARDIAL INFARCTION, OF INDETERMINATE AGE ANTEROSEPTAL MYOCARDIAL INFARCTION, PROBABLY OLD Electronically Signed On 08-01-2017 16:46:17 EDT by Alok Pinon MD Assessment and Plan: Active Hospital Problems Diagnosis Date Noted ??? NSTEMI (non-ST elevated myocardial infarction) ([facility]) 08/01/2017 ??? Mood disorder ([facility]) 10/13/2016 ??? 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 3 chronic kidney disease, with long-term current use of insulin ([facility]) 07/31/2016 ??? Chronic diastolic CHF (congestive heart failure) ([facility]) 12/26/2015 Resolved Hospital Problems Diagnosis Date Noted Date Resolved No resolved problems to display. NSTEMI Recent admission for N STEMI underwent left heart catheterization but found not to have any flow-limiting lesions Presents again with chest pain troponin mildly elevated over the last admission Follow serial troponins Consult cardiology Continue aspirin, Plavix, Ranexa, beta-laquita, imdur, statin Bradycardia She is noted to be on a beta-laquita Currently asymptomatic Hold beta-laquita for heart rate less than 50 Cardiology eval Hypertension Continue metoprolol, Norvasc, lisinopril History of atrial fibrillation Status post ablation History of mood disorder Currently stable Continue Abilify, Lamictal, Zoloft DM Lantus, prandial and SSI Hold metformin Monitor BS DVT prophylaxis Lovenox I have reviewed and verified the Advance Care Plans and Healthcare Surrogate with patient. FULL CODE Full orders as written on electronic medical records at admission. Med reconciliation completed andor verified.Total time spent 70 mnts, >50% face to face with the patient and/or family and/or coordination of care. Discussed test results, projected prognosis and treatment plans, patient/family education for treatment and/or follow up. Eunice Polanco MD 08/01/2017 documented in this encounter Consult Notes * Praneeth Bailey MD - 08/02/2017 12:29 PM EDTAssociated Order(s): IP CONSULT TO [facility] Chief Complaint Patient presents with ??? Shortness of Breath pt c/o feeling short of breath most of today; pt from [facility] last week HPI: Faby Palm is a 67 y.o. female who was admitted to the hospital on 08/01/2017 from [facility] chest pain and shortness of breath She was admitted 07/24/17 -07/27/17 with chest pain and possible SVT. Underwent LHC on 07/25/17 that demonstrated stable anatomy. Sent to [facility]. At [facility] she has been complaining of left sided chest pain that is constant in nature. It worsens when she tries to get up . No associated nausea, vomiting, or diaphoresis. 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 Dr devries REVIEW OF SYSTEMS: Constitutional: Denies weight loss, weight gain Eyes: Denies vision changes Ears, Nose, Throat: Denies sinus drainage, hearing changes, sore throat Cardiovascular: see HPI Respiratory: Denies cough, wheezing, sputum, hemoptysis Gastrointestinal: Denies melena, hematochezia, appetite changes Musculoskeletal: Denies muscle pain, muscle weakness, joint swelling, joint pain Skin: Denies rashes Neurologic: Denies numbness, slurred speech Psychiatric: Denies depression, anxiety Hematologic/Lymphatic: Denies excessive bleeding or bruising, abnormal masses Endocrine: Denies polyuria, polyphagia, hot intolerance, cold intolerance Allergic/Immunologic: Denies fevers, chills, sweating PAST MEDICAL HISTORY: Past Medical History: Diagnosis [...] Allergen Reactions ??? Compazine [Prochlorperazine Edisylate] ??? [place] ??? Pentazocine Hcl ??? Prochlorperazine Maleate ??? [place] [Pentazocine Lactate] HOME MEDICATIONS: Prior to Admission medications Medication Sig Start Date End Date Taking? Authorizing Provider acetaminophen 325 mg Oral Tab Take 650 mg by mouth every 4 hours as needed for Pain. Yes Provider, Historical amLODIPine (NORVASC) 2.5 mg Oral Tablet Take 1 Tab by mouth daily. 07/20/17 Yes Sridevi Calle APRN ARIPiprazole (ABILIFY) 30 mg Oral Tablet Take 1 Tab by mouth daily. 02/23/17 Yes Eric Gavin MD aspirin 81 mg Oral Tablet, Chewable Take 1 Tab by mouth daily. 04/14/17 Yes Sherif Bartholomew MD atorvastatin (LIPITOR) 20 mg Oral Tablet TAKE ONE TABLET BY MOUTH NIGHTLY 03/24/17 Yes Joanna Pierce MD cloNIDine HCl (CATAPRES) 0.1 mg Oral Tablet Take 1 Tab by mouth 2 times daily. Hold for SBP <90 07/20/17 Yes Sridevi Calle APRN clopidogrel (PLAVIX) 75 mg Oral Tablet Take 1 Tab by mouth daily. 07/27/17 Yes Ben Anderson APRN ferrous sulfate 325 mg (65 mg iron) Oral Tablet Take 1 Tab by mouth 2 times daily (with meals). 04/04/15 Yes Campbell Huston MD fUROsemide (LASIX) 20 mg Oral Tablet Take 1 Tab by mouth daily. 05/12/17 Yes Eric Gavin MD glipiZIDE (GLUCOTROL) 10 mg Oral Tablet Take 10 mg by mouth 2 times daily (with meals). Yes Provider, Historical isosorbide mononitrate (IMDUR) 60 mg Oral Tablet Sustained Release 24 hr TAKE ONE TABLET BY MOUTH ONCE DAILY 03/24/17 Yes Joanna Pierce MD lamoTRIgine (LAMICTAL) 25 mg Oral Tablet Take 1 Tab by mouth 2 times daily. 05/12/17 Yes Eric Gavin MD lisinopril (PRINIVIL;ZESTRIL) 20 mg Oral Tablet Take 20 mg by mouth daily. Yes Provider, Historical loperamide (IMODIUM) 2 mg Oral Capsule Take 2 mg by mouth 2 times daily. Yes Provider, Historical metFORMIN XR (GLUCOPHAGE-XR) 500 mg Oral Tablet Sustained Release 24 hr Take 500 mg by mouth daily (with breakfast). Yes Provider, Historical metoprolol (LOPRESSOR) 25 mg Oral Tablet Take 1 Tab by mouth 2 times daily. 07/26/17 Yes Ben Anderson APRN nitroGLYCERIN (NITROSTAT) 0.4 mg SL Tablet, Sublingual Place 1 Tab under the tongue every 5 minutesas needed for Chest pain. 11/19/16 Yes Sharee Segovia ARNP nystatin (MYCOSTATIN) Top Powder Apply topically 2 times daily. Yes Provider, Historical pantoprazole (PROTONIX) 40 mg Oral Tablet, Delayed Release (E.C.) TAKE ONE TABLET BY MOUTH ONCE DAILY 11/26/16 Yes Joanna Pierce MD RANEXA 1,000 mg Oral Tablet Sustained Release 12 hr TAKE ONE TABLET BY MOUTH EVERY 12 HOURS 06/28/17Yes Joanna Pierce MD sertraline (ZOLOFT) 100 mg Oral Tablet Take 200 mg by mouth daily. Reported on 08/12/2016 Yes Provider, Historical traZODone (DESYREL) 300 mg Oral Tablet Take 1 Tab by mouth nightly. Patient taking differently: Take 150 mg by mouth nightly. 05/12/17 Yes Eric Gavin MD vpasd-A-zpntvjznluspz (ANTI-GAS ORAL) Take by mouth 3 times daily as needed. Provider, Historical insulin glargine (LANTUS) 100 unit/mL SubQ Solution Subcutaneous (Inject under the skin) 28 Units every evening. 02/23/17 Eric Gavin MD inulin (FIBER CHOICE, INULIN,) 1.5 gram Oral Tablet, Chewable Take by mouth 2 times daily. Provider, Historical metoprolol (LOPRESSOR) 50 mg Oral Tablet TAKE 1 TABLET BY MOUTH 2 TIMES DAILY Patient not taking: Reported on 08/01/2017 01/26/17 Joanna Pierce MD valACYclovir (VALTREX) 1 gram Oral Tablet Take by mouth 3 times daily. Provider, [facility] MEDICATIONS: Scheduled Medications: ??? amLODIPine 2.5 mg Oral Daily ??? ARIPiprazole 30 mg Oral Daily ??? aspirin 81 mg Oral Daily ??? atorvastatin 20 mg Oral Nightly ??? cloNIDine HCl 0.1 mg Oral BID ??? clopidogrel 75 mg Oral Daily ??? enoxaparin 40 mg Subcutaneous Daily ??? ferrous sulfate 325 mg Oral BID WM ??? fUROsemide 20 mg Oral Daily ??? glipiZIDE 10 mg Oral BID WM ??? guar gum 1 Each Oral BID WM ??? insulin aspart U-100 1-10 Units Subcutaneous QID WM ??? insulin glargine 24 Units Subcutaneous QPM (Insulin) ??? isosorbide mononitrate 60 mg Oral Daily ??? lamoTRIgine 25 mg Oral BID ??? lisinopril 20 mg Oral Daily ??? loperamide 2 mg Oral BID ??? metoprolol 25 mg Oral BID ??? miconazole Topical BID ??? nitroGLYCERIN 0.5 Inch Topical 4 times per day ??? pantoprazole 40 mg Oral Daily ??? ranolazine 1,000 mg Oral 2 times per day ??? sertraline 200 mg Oral Daily ??? traZODone 150 mg Oral Nightly Continuous Infusions: PRN Medications: acetaminophen OR acetaminophen, dextrose, glucagon (human recombinant), miconazole AND miconazole, morphine OR morphine, nitroGLYCERIN, ondansetron OR ondansetron SOCIAL HISTORY: Social History Social History ??? Marital status: Spouse name: N/A ??? Number of children: 2 ??? Years of education: N/A Occupational History ??? retired Social History Main Topics ??? Smoking status: Never Smoker ??? Smokeless tobacco: Never Used ??? Alcohol use No Comment: wednesday ??? Drug use: No ??? Sexual activity: No Other Topics Concern ??? Not on file Social History Narrative Lives at [facility] Has two children and two grandchildren. Is FAMILY HISTORY: Family History Problem Relation Age of Onset ??? Cancer Mother larnyx cancer ??? Heart Disease Sister ??? No Known Problems Son ??? Seizures Daughter PHYSICAL EXAMINATION: Vitals: 08/02/17 1103 BP: 90/41 Pulse: 94 Resp: 20 Temp: SpO2: 100% Temp (24hrs), Av.2 ??F (36.8 ??C), Min:98.1 ??F (36.7 ??C), Max:98.3 ??F (36.8 ??C) Weight: 232 lb (105.2 kg) Intake/Output Summary (Last 24 hours) at 08/02/17 1229 Last data filed at 08/02/17 1000 Gross per 24 hour Intake 1210.34 ml Output 0 ml Net 1210.34 ml CONSTITUTIONAL: No apparent distress. Alert and oriented. EYES: Gaze is conjugate. Ptosis is absent. EARS, NOSE, MOUTH, THROAT: Oropharynx is clear. Nose is midline. NECK: Thyromegaly is absent. Trachea is midline. Masses are absent. RESPIRATORY: Respiratory effort is normal. Wheezes are absent. Rales are absent. Rhonchi are absent. CARDIOVASCULAR: Heart rate is noted above. Rhythm is regular. Murmurs are absent. Rubs are absent. S1 and S2 normal. S3 or S4 are absent. Pulses are normal. Jugular venous pressure is normal. Edema is absent. Carotid Bruits are absent. GASTROINTESTINAL: Bowel sounds are normal. Hepatomegaly is absent. Splenomegaly is absent. Abdomen is soft and non tender. MUSCULOSKELETAL: Clubbing is absent. Cyanosis is absent. SKIN: Rashes are visually absent. Turgor is normal. Warm and dry. NEUROLOGICAL: Grossly non focal. PSYCHIATRIC: Mood is normal. Affect is normal. LABORATORY AND STUDIES: Lab Results Component Value Date WBC 9.2 08/02/2017 HGB 13.0 08/02/2017 HCT 40.7 08/02/2017 MCV 90.8 08/02/2017 PLT 190 08/02/2017 Lab Results Component Value Date NA 142 08/02/2017 K 4.1 08/02/2017 CL 102 08/02/2017 CO2 26 08/02/2017 BUN 25 (H) 08/02/2017 CREATININE 2.02 (H) 08/02/2017 CALCIUM 8.8 08/02/2017 GLU 85 08/02/2017 IMAGING: Xr Chest Ap Portable Result Date: 08/01/2017 CLINICAL HISTORY: -SHORTNESS OF BREATH. COMPARISON: 07/22/2017. TECHNIQUE: XR CHEST AP PORTABLE on 08/01/2017 2:23 PM. FINDINGS: There is minimal atelectasis in the left lung but the lungs are otherwise clear. There is no pneumothorax or pleural effusion. The heart size and pulmonary vascularity are stable. The upper abdomen and osseous structures are unremarkable. No acute findings. Ek Ekg 12 Lead Result Date: 08/01/2017 NOTICE: Preliminary tracing available for review; Final Interpretation by physician to follow. Stationary ECG Study [facility] Interpretive Statements SINUS BRADYCARDIA LOW QRS VOLTAGE IN PRECORDIAL LEADS INFERIOR MYOCARDIAL INFARCTION, OF INDETERMINATE AGE ANTEROSEPTAL MYOCARDIAL INFARCTION, PROBABLY OLD Electronically Signed On 08-01-2017 16:46:17 EDT by Alok Pinon MD ACTIVE HOSPITAL PROBLEM LIST: Active Hospital Problems Diagnosis ??? *NSTEMI (non-ST elevated myocardial infarction) ([facility]) ??? Mood disorder ([facility]) ??? 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 3 chronic kidney disease, with long-term current use of insulin ([facility]) ??? Chronic diastolic CHF (congestive heart failure) ([facility]) ASSESSMENT AND PLAN: This is a 67 y.o. female with the followin. Chest pain Trop 0.13-->0.13-->0.14. Linear, nonspecific EKG with Old Inf/Ant infarcts On Ranexa, Imdur, amlodipine Defer any ischemic workup at present 2. CAD - Card cath (10/2016): 50-60% mid LAD, 50% ost RCA, pEF - managed medically Nonischemic stress (04/2017) Card Cath 07/25/17: ?? Ost RCA lesion 60% stenosed. ?? Mid RCA lesion 40% stenosed. ?? Mid LAD lesion 50% stenosed. Significant but not clearly flow limiting dz Ostial RCA of 50-70% - difficult to image due to angulation with FFR of 0.92 Mid LAD appearing 50% with FFR of 0.82 Normal LVEDP Asa, statin, Plavix, Imdur 3. Atrial Flutter S/p ablation 2015 4. HTN BP low on at present 5. Hx of CVA Residual Left sided hemiparesis 6. JACK on CKD Cr 2.02 DC lisinopril, lasix Follow BMP in am 7. Obesity Dr Bailey to See Ollie Davis APRN 08/02/2017 12:29 PM Cardiology: ATTENDING PHYSICIAN ATTESTATION: The patient was seen in collaboration with the nurse practioner. I have reviewed all the pertinent history, laboratory and radiology studies. I have taken a history and performed a physical examination of this patient. I agree with the history, physical, assessment and plan as outlined above. Patent seen and examined Chest exam: negative CVS NO JVD S1 S2 normal No murmurs or gallops As above. Her chest pain is atypical and is clearly improved.. Patient states she wants to go home.No further cardiac workup at this time. Her blood pressure iss on the low side and we will therefore reduce her clonidine to 0.1 mg daily. Okay to go from cardiac standpoint. Follow-up Dr. Devries 4 weeks Thanks for consult documented in this encounter ED Notes * Ange Holden RN - 08/01/2017 1:29 PM EDT Bed: 11 Expected date: Expected time: Means of arrival: Comments: ems * Colleen Ghosh MD - 08/01/2017 1:21 PM EDT Chief Complaint Patient presents with ??? Shortness of Breath pt c/o feeling short of breath most of today; pt from [facility]--hx of [place] last week History provided by: Medical records and patient Patient is a 67 year old female who presents to the ED from [facility] via EMS with complaints ofchest pain and shortness of breath. The patient has a history of CAD, schizoaffective disorder, diabetes, atrial flutter with ablation, CHF, prior CVA, and EF of 60-65%. She was admitted 07/24/17-07/27/17 for non-ST elevation myocardial infarction. Left heart catheterization 07/24/17 showed significant disease but no flow limiting lesions. Deemed medical management. The patient complains of chest pain and shortness of breath that has been present since 1100 today. She reports her pain has been constant since onset but is unable to describe her pain. She denies any pain before this morning. She denies fever, vomiting, and any other pain or associated symptoms. Patient History Allergies Allergen Reactions ??? Compazine [Prochlorperazine Edisylate] ??? [place] ??? Pentazocine Hcl ??? Prochlorperazine Maleate ??? Talwin [Pentazocine Lactate] Home Medications: Prior to Admission medications Medication Sig Start Date End Date Taking? Authorizing Provider acetaminophen 325 mg Oral Tab Take 650 mg by mouth every 4 hours as needed for Pain. Provider, Historical eogxt-X-dtbfzdloddjiy (ANTI-GAS ORAL) Take by mouth 3 times [...] 1 Tab by mouth 2 times daily. Hold for SBP <90 07/20/17 Sridevi Calle APRN clopidogrel (PLAVIX) 75 mg Oral Tablet Take [...] under the skin) 28 Units every evening. 02/23/17 Eric Gavin MD inulin (FIBER CHOICE, INULIN,) 1.5 gram Oral [...] mouth daily (with breakfast). Provider, Historical metoprolol (LOPRESSOR) 25 mg Oral Tablet Take 1 Tab by mouth 2 times daily. 07/26/17 Ben Anderson APRN metoprolol (LOPRESSOR) 50 mg Oral Tablet TAKE 1 TABLET BY MOUTH 2 TIMES DAILY 01/26/17 Joanna Pierce MD nitroGLYCERIN (NITROSTAT) 0.4 mg SL Tablet, Sublingual Place 1 Tab under the tongue every 5 minutesas needed for Chest pain. 11/19/16 Sharee Segovia ARNP nystatin (MYCOSTATIN) Top Powder Apply topically 2 times daily. Provider, Historical pantoprazole (PROTONIX) 40 mg Oral Tablet, Delayed Release (E.C.) TAKE ONE TABLET BY MOUTH ONCE DAILY 11/26/16 Joanna Pierce MD RANEXA 1,000 mg Oral Tablet Sustained Release 12 hr TAKE ONE TABLET BY MOUTH EVERY 12 HOURS 06/28/17Joanna Pierce MD sertraline (ZOLOFT) 100 mg Oral Tablet Take 200 mg by mouth daily. Reported on 08/12/2016 Provider, Historical traZODone (DESYREL) 300 mg Oral Tablet Take 1 Tab by mouth nightly. Patient taking differently: Take 150 mg by mouth nightly. 05/12/17 Eric Gavin MD valACYclovir (VALTREX) 1 gram Oral Tablet Take by mouth 3 times daily. Provider, Historical Past Medical History: Past Medical [...] AND BRUSHING; Surgeon: Be Brown MD; Location: [facility] END[facility]COPY; Service: Endoscopy Review of Systems Review [...] and are negative. Physical Exam Blood pressure 105/75, pulse 51, temperature 98.3 ??F (36.8 ??C), temperature source Oral, resp. rate 16, height 5' 8.5 (1.74 m), weight 232 lb (105.2 kg), SpO2 96 %. Physical Exam Nursing note and vitals reviewed. Vitals: Reviewed, see nursing chart Constitutional: No acute distress, Non-toxic appearance. HENT: Normocephalic, Atraumatic, Bilateral external ears normal, Oropharynx moist, No oral exudates, Nose normal. Eyes: PERRLA, EOMI, Conjunctiva normal, No discharge. Neck: Normal range of motion, No tenderness, Supple, No lymphadenopathy, No stridor. Cardiovascular: Normal rhythm, No murmurs, No rubs, No gallops. Bradycardic, rate of 50. Pulmonary/Chest: No respiratory distress. Mild decreased breath sounds throughout. No chest wall tenderness. No wheezing, no stridor. No increased work of breathing. Abdomen: Bowel sounds normal, Soft, No tenderness, No masses, No pulsatile masses. Back: No tenderness, No CVA tenderness. Extremities: Normal range of motion, Intact distal pulses, No edema, No tenderness. Lymphatic: No lymphadenopathy noted. Neurologic: Alert & oriented x 3, Normal motor function, Normal sensory function, No focal defecits. Mild left sided facial droop which is chronic. Skin: Warm, Dry, No erythema, No rash. Psychiatric: Affect normal, Judgement normal, Mood normal. Procedures Radiology/EKG/Labs: Results for orders placed or performed during the hospital encounter of 08/01/17 EK EKG 12 LEAD Narrative NOTICE: Preliminary tracing available for review; Final Interpretation by physician to follow. Impression Stationary ECG Study [facility] Interpretive Statements SINUS BRADYCARDIA LOW QRS VOLTAGE IN PRECORDIAL LEADS INFERIOR MYOCARDIAL INFARCTION, OF INDETERMINATE AGE ANTEROSEPTAL MYOCARDIAL INFARCTION, PROBABLY OLD Results for orders placed or performed during the hospital encounter of 08/01/17 XR CHEST AP PORTABLE Narrative CLINICAL HISTORY: -SHORTNESS OF BREATH. COMPARISON: 07/22/2017. TECHNIQUE: XR CHEST AP PORTABLE on 08/01/2017 2:23 PM. FINDINGS: There is minimal atelectasis in the left lung but the lungs are otherwise clear. There is no pneumothorax or pleural effusion. The heart size and pulmonary vascularity are stable. The upper abdomen and osseous structures are unremarkable. Impression No acute findings. CBC WITH DIFF Result Value Ref Range WBC 7.6 4.0 - 11.0 x10(3)/mcL RBC 4.69 3.80 - 5.10 x10(6)/mcL Hgb 13.6 12.0 - 15.6 g/dL Hct 40.9 35.7 - 45.9 % MCV 87.4 82.5 - 99.8 fL MCH 28.9 27.0 - 34.3 pg MCHC 33.1 32.1 - 35.3 g/dL RDW 14.4 11.5 - 15.0 % Platelet 254 144 - 423 x10(3)/mcL MPV 9.6 6.8 - 10.8 fL Neut Percent 71.2 % Lymph Percent 21.6 % [place] Percent 4.0 % Eos Percent 2.6 % Baso Percent 0.6 % Neut # 5.4 1.8 - 7.7 x10(3)/mcL Lymph # 1.6 0.6 - 4.8 x10(3)/mcL [place] # 0.3 0.0 - 1.3 x10(3)/mcL Eos# 0.2 0.0 - 0.5 x10(3)/mcL Baso # 0.0 0.0 - 0.2 x10(3)/mcL BASIC METABOLIC PANEL Result Value Ref Range Sodium 141 136 - 145 mmol/L Potassium 4.5 3.5 - 5.0 mmol/L Chloride 100 98 - 107 mmol/L Total CO2 30 (H) 22 - 29 mmol/L Anion Gap 11 7 - 16 mmol/L Calcium 9.8 8.8 - 10.2 mg/dL Glucose Lvl 142 (H) 82 - 100 mg/dL BUN 19 8 - 23 mg/dL Creatinine 1.36 (H) 0.51 - 1.30 mg/dL GFR Afr Am 47 mL/min/1.73 m2 GFR Non Afr Am 41 mL/min/1.73 m2 TROPONIN-T Result Value Ref Range Troponin-T 0.13 (H) <0.01 ng/mL Narrative Ingestion of charles doses of biotin (>5 mg/day) taken within 8 hours of drawing blood sample can interfere with this immunoassay test. EK EKG 12 LEAD Narrative NOTICE: Preliminary tracing available for review; Final Interpretation by physician to follow. Impression Stationary ECG Study [facility] Interpretive Statements SINUS BRADYCARDIA LOW QRS VOLTAGE IN PRECORDIAL LEADS INFERIOR MYOCARDIAL INFARCTION, OF INDETERMINATE AGE ANTEROSEPTAL MYOCARDIAL INFARCTION, PROBABLY OLD ED Course: Appropriate laboratory and radiology studies reviewed 67-year-old female with a history of coronary artery disease recent admission for non-ST elevation SC. Underwent heart catheterization which did not show flow limiting lesion. Treated with medical management. Presents with constant left- sided chest pain. Troponin is elevated above that at discharge. Trop 0.13 today. EKG does not show any acute ST elevation. Received an aspirin. Received nitroglycerin which did not relieve her pain. Received morphine and Zofran. Will admit for further cardiac evaluation and rule out. Will consult cardiology. ED Clinical Impression: Chest pain Coronary artery disease Elevated troponin-NSTEMI Critical Care time 35min Condition at Discharge/Transfer from Department: Stable Colleen Olivares MD, personally performed the services described in this documentation, as scribed by, Jessica Phoenix , in my presence and it is accurate and complete. This chart was completed using voice recognition technology and may contain unintended errors Jessica Olivares Scribe, am scribing for and in the presence of Colleen Velazquez MD. Jessica Phoenix Scribe 08/01/17 [id number] Colleen Ghosh MD 08/01/17 1527 documented in this encounter Miscellaneous Notes * Plan of Care - Payton Carroll RN - 08/03/2017 1:54 PM EDT Problem: Disposition/Transition of Care Goal: Patient will have a plan for disposition or transition to next level of care Outcome: Completed Date Met: 08/03/17 Patient returning to [facility] upon discharge. * RT Oxygen Plan of Care Note - Anthony Villagran RRT - 08/03/2017 12:49 PM EDT August 03, 2017 Oxygen Therapy: Oxygen Liters/Percent: No order found Maintain Oxygen Sat greater than or equal to: >90 Other Saturation No order found O2 Device: Room Air SpO2: 93 % Will continue to wean oxygen as tolerated to maintain titration goal. Anthony Villagran, CICI * RT Oxygen Plan of Care Note - Cristina Jacobs RRT - 08/02/2017 6:31 PM EDT August 02, 2017 Oxygen Therapy: Oxygen Liters/Percent: No order found Maintain Oxygen Sat greater than or equal to: >90 Other Saturation No order found O2 Device: Nasal cannula O2 Flow Rate (L/min): 3 lpm SpO2: 98 % Will continue to wean oxygen as tolerated to maintain titration goal. Cristina Jacobs RRT * Utilization Review Notes - Katheryn Bro RN - 08/02/2017 9:58 AM EDT ADMIT PER ED TO TCU FOR CHEST PAIN, CORONARY ARTERY DISEASE AND ELEVATED TROPONIN-NSTEMI. INPT [id number] 08/01: PT ADMITTED C/O CHEST PAIN AND SOB. ADMITTED 07/24-07/27 FOR NON-ST ELEVATION MYOCARDIAL INFARCTION. TROPONIN IS ELEVATED EKG DOES NOT SHOW ANY ACUTE ST ELEVATION GIVEN ASPIRIN AND NITROGLYCERIN RECEIVED MORPHINE AND ZOFRAN ADMITTED FOR FURTHER CARDIAC EVALUATION AND R/O. SEE H/P * RT Oxygen Plan of Care Note - Elizabeth Wharton RRT - 08/02/2017 8:08 AM EDT August 02, 2017 Oxygen Therapy: Oxygen Liters/Percent: No order found Maintain Oxygen Sat greater than or equal to: >90 Other Saturation No order found O2 Device: Nasal cannula O2 Flow Rate (L/min): 3 lpm SpO2: 94 % Will continue to wean oxygen as tolerated to maintain titration goal. Elizabeth Wharton RRT documented in this encounter Plan of Treatment [...] Associated Diagnosis Comments GLUCOSE METER POC Routine 08/03/2017 12:36 PM EDT GLUCOSE METER POC Routine 08/03/2017 8:07 AM EDT CBC WITH DIFF Timed 08/03/2017 5:49 AM EDT BASIC METABOLIC PANEL Timed 08/03/2017 5:49 AM EDT ECG AND WAVEFORMS - TELEMETRY Routine 08/03/2017 4:55 AM EDT GLUCOSE METER POC Routine 08/02/2017 8:04 PM EDT GLUCOSE METER POC Routine 08/02/2017 4:43 PM EDT ECG AND WAVEFORMS - TELEMETRY Routine 08/02/2017 4:12 PM EDT CBC WITH DIFF Timed 08/02/2017 8:26 AM EDT GLUCOSE METER POC Routine 08/02/2017 8:14 AM EDT LIPID SCREEN Routine 08/02/2017 6:14 AM EDT BASIC METABOLIC PANEL Timed 08/02/2017 6:14 AM EDT ECG AND WAVEFORMS - TELEMETRY Routine 08/02/2017 5:05 AM EDT GLUCOSE METER POC Routine 08/01/2017 9:33 PM EDT TROPONIN-T Timed 08/01/2017 8:11 PM EDT GLUCOSE METER POC Routine 08/01/2017 6:09 PM EDT ECG AND WAVEFORMS - TELEMETRY Routine 08/01/2017 5:34 PM EDT IP CONSULT TO CARDIOLOGY STAT 08/01/2017 5:29 PM EDT Procedure Note - Praneeth Bailey MD - 08/02/2017 12:29 PM EDTThis note is in progress. [facility] Chief Complaint Patient presents with ? ? Shortness of Breath pt c/o feeling short of breath most of today; pt [facility]--hx ofMI last week HPI: aFby Palm is a 67 y.o. female who was admitted to the hospital on08/01/2017 from [facility] with chest pain and shortness of breath Shewas admitted 07/24/17 -07/27/17 with chest pain and possible SVT. UnderwentLHC on 07/25/17 that demonstrated stable anatomy. Sent to [facility]. At [facility] she has been complaining of leftsided chest pain that is constant in nature. It worsens when she triesto get up . No associated nausea, vomiting, or diaphoresis. 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 Dr devries REVIEW OF SYSTEMS: Constitutional: Denies weight loss, weight gain Eyes: Denies vision changes Ears, Nose, Throat: Denies sinus drainage, hearing changes, sore throat Cardiovascular: see HPI Respiratory: Denies cough, wheezing, sputum, hemoptysis Gastrointestinal: Denies melena, hematochezia, appetite changes Musculoskeletal: Denies muscle pain, muscle weakness, joint swelling,joint pain Skin: Denies rashes Neurologic: Denies numbness, slurred speech Psychiatric: Denies depression, anxiety Hematologic/Lymphatic: Denies excessive bleeding or bruising, abnormalmasses Endocrine: Denies polyuria, polyphagia, hot intolerance, coldintolerance Allergic/Immunologic: Denies fevers, chills, sweating PAST MEDICAL HISTORY: Past Medical History: Diagnosis Date ? ? Atrial flutter (HCC) EPS, AFL Ablation on 12/31/[address] Tee ? ? CHF (congestive heart failure) (HCC) ? ? COPD (chronic obstructive pulmonary disease) (HCC) ? ? DDD (degenerative disc disease) ? ? Diabetes mellitus (HCC) ? ? Hypertension ? ? Intellectual disability 05/03/2017 ? ? SC (myocardial infarction) (HCC) ? ? RLS (restless legs syndrome) ? ? Schizoaffective disorder, depressive type (HCC) 02/19/2017 ? ? Stroke (HCC) 2010 left side affected ? ? Suicide attempt (HCC) ? ? Urinary incontinence ? ? Yeast infection recurrent PAST SURGICAL HISTORY: Past Surgical History: Procedure Laterality Date ? [...] AND BRUSHING; Surgeon: Be Brown MD; Location: [facility] ENDOSCOPY; Service: Endoscopy ALLERGIES: Allergies Allergen Reactions ? ? Compazine [Prochlorperazine Edisylate] ? ? [place] ? ? Pentazocine Hcl ? ? Prochlorperazine Maleate ? ? Talwin [Pentazocine Lactate] HOME MEDICATIONS: Prior to Admission medications Medication Sig Start Date End Date Taking? Authorizing Provider acetaminophen 325 mg Oral Tab Take 650 mg by mouth every 4 hours as neededfor Pain. Yes Provider, Historical amLODIPine (NORVASC) 2.5 mg Oral Tablet Take 1 Tab by mouth daily. 07/20/17Yes Sridevi Calle APRN ARIPiprazole (ABILIFY) 30 mg Oral Tablet Take 1 Tab by mouth daily.02/23/17 Yes Eric Gavin MD aspirin 81 mg Oral Tablet, Chewable Take 1 Tab by mouth daily. 04/14/17 Sherif Gray MD atorvastatin (LIPITOR) 20 mg Oral Tablet TAKE ONE TABLET BY MOUTH NIGHTLY03/24/17 Yes Joanna Pierce MD cloNIDine HCl (CATAPRES) 0.1 mg Oral Tablet Take 1 Tab by mouth 2 timesdaily. Hold for SBP <90 07/20/17 Yes Sridevi Calle APRN clopidogrel (PLAVIX) 75 mg Oral Tablet Take 1 Tab by mouth daily. 07/27/17Yes Ben Anderson APRN ferrous sulfate 325 mg (65 mg iron) Oral Tablet Take 1 Tab by mouth 2times daily (with meals). 04/04/15 Yes Campbell Huston MD fUROsemide (LASIX) 20 mg Oral Tablet Take 1 Tab by mouth daily. 05/12/17Yes Eric Gavin MD glipiZIDE (GLUCOTROL) 10 mg Oral Tablet Take 10 mg by mouth 2 times daily(with meals). Yes Provider, Historical isosorbide mononitrate (IMDUR) 60 mg Oral Tablet Sustained Release 24 hrTAKE ONE TABLET BY MOUTH ONCE DAILY 03/24/17 Yes Travis Pierce MD lamoTRIgine (LAMICTAL) 25 mg Oral Tablet Take 1 Tab by mouth 2 timesdaily. 05/12/17 Yes Eric Gavin MD lisinopril (PRINIVIL;ZESTRIL) 20 mg Oral Tablet Take 20 mg by mouth daily.Yes Provider, Historical loperamide (IMODIUM) 2 mg Oral Capsule Take 2 mg by mouth 2 times daily.Yes Provider, Historical metFORMIN XR (GLUCOPHAGE-XR) 500 mg Oral Tablet Sustained Release 24 hrTake 500 mg by mouth daily (with breakfast). Yes Provider, Historical metoprolol (LOPRESSOR) 25 mg Oral Tablet Take 1 Tab by mouth 2 timesdaily. 07/26/17 Yes Ben Anderson APRN nitroGLYCERIN (NITROSTAT) 0.4 mg SL Tablet, Sublingual Place 1 Tab underthe tongue every 5 minutes as needed for Chest pain. 11/19/16 YesSharee Segovia ARNP nystatin (MYCOSTATIN) Top Powder Apply topically 2 times daily. YesProvider, Historical pantoprazole (PROTONIX) 40 mg Oral Tablet, Delayed Release (E.C.) TAKE ONETABLET BY MOUTH ONCE DAILY 11/26/16 Yes Joanna Pierce MD RANEXA 1,000 mg Oral Tablet Sustained Release 12 hr TAKE ONE TABLET BYMOUTH EVERY 12 HOURS 06/28/17 Yes Joanna Pierce MD sertraline (ZOLOFT) 100 mg Oral Tablet Take 200 mg by mouth daily.Reported on 08/12/2016 Yes Provider, Historical traZODone (DESYREL) 300 mg Oral Tablet Take 1 Tab by mouth nightly. Patient taking differently: Take 150 mg by mouth nightly. 05/12/17 YesEric Gavin MD [id number] (ANTI-GAS ORAL) Take by mouth 3 times daily asneeded. Provider, Historical insulin glargine (LANTUS) 100 unit/mL SubQ Solution Subcutaneous (Injectunder the skin) 28 Units every evening. 02/23/17 Eric Gavin MD inulin (FIBER CHOICE, INULIN,) 1.5 gram Oral Tablet, Chewable Take bymouth 2 times daily. Provider, Historical metoprolol (LOPRESSOR) 50 mg Oral Tablet TAKE 1 TABLET BY MOUTH 2 TIMESDAILY Patient not taking: Reported on 08/01/2017 01/26/17 Joanna Pierce MD valACYclovir (VALTREX) 1 gram Oral Tablet Take by mouth 3 times daily.Provider, Historical HOSPITAL MEDICATIONS: Scheduled Medications: ? ? amLODIPine 2.5 mg Oral Daily ? ? ARIPiprazole 30 mg Oral Daily ? ? aspirin 81 mg Oral Daily ? ? atorvastatin 20 mg Oral Nightly ? ? cloNIDine HCl 0.1 mg Oral BID ? ? clopidogrel 75 mg Oral Daily ? ? enoxaparin 40 mg Subcutaneous Daily ? ? ferrous sulfate 325 mg Oral BID WM ? ? fUROsemide 20 mg Oral Daily ? ? glipiZIDE 10 mg Oral BID WM ? ? guar gum 1 Each Oral BID WM ? ? insulin aspart U-100 1-10 Units Subcutaneous QID WM ? ? insulin glargine 24 Units Subcutaneous QPM (Insulin) ? ? isosorbide mononitrate 60 mg Oral Daily ? ? lamoTRIgine 25 mg Oral BID ? ? lisinopril 20 mg Oral Daily ? ? loperamide 2 mg Oral BID ? ? metoprolol 25 mg Oral BID ? ? miconazole Topical BID ? ? nitroGLYCERIN 0.5 Inch Topical 4 times per day ? ? pantoprazole 40 mg Oral Daily ? ? ranolazine 1,000 mg Oral 2 times per day ? ? sertraline 200 mg Oral Daily ? ? traZODone 150 mg Oral Nightly Continuous Infusions: PRN Medications: acetaminophen OR acetaminophen, dextrose, glucagon (humanrecombinant), miconazole AND miconazole, morphine OR morphine,nitroGLYCERIN, ondansetron OR ondansetron SOCIAL HISTORY: Social History Social History ? ? Marital [...] activity: No Other Topics Concern ? ? Not on file Social History Narrative Lives at [facility] Has two children and two grandchildren. Is FAMILY HISTORY: Family History Problem Relation Age of Onset ? ? Cancer Mother larnyx cancer ? ? Heart Disease Sister ? ? No Known Problems Son ? ? Seizures Daughter PHYSICAL EXAMINATION: Vitals: 08/02/17 1103 BP: 90/41 Pulse: 94 Resp: 20 Temp: SpO2: 100% Temp (24hrs), Av.2 ??F (36.8 ??C), Min:98.1 ??F (36.7 ??C), Max:98.3 ??F(36.8 ??C) Weight: 232 lb (105.2 kg) Intake/Output Summary (Last 24 hours) at 08/02/17 1229 Last data filed at 08/02/17 1000 Gross per 24 hour Intake 1210.34 ml Output 0 ml Net 1210.34 ml CONSTITUTIONAL: No apparent distress. Alert and oriented. EYES: Gaze is conjugate. Ptosis is absent. EARS, NOSE, MOUTH, THROAT: Oropharynx is clear. Nose is midline. NECK: Thyromegaly is absent. Trachea is midline. Masses are absent. RESPIRATORY: Respiratory effort is normal. Wheezes are absent. Rales are absent.Rhonchi are absent. CARDIOVASCULAR: Heart rate is noted above. Rhythm is regular. Murmurs are absent. Rubsare absent. S1 and S2 normal. S3 or S4 are absent. Pulses are normal.Jugular venous pressure is normal. Edema is absent. Carotid Bruits areabsent. GASTROINTESTINAL: Bowel sounds are normal. Hepatomegaly is absent. Splenomegaly is absent.Abdomen is soft and non tender. MUSCULOSKELETAL: Clubbing is absent. Cyanosis is absent. SKIN: Rashes are visually absent. Turgor is normal. Warm and dry. NEUROLOGICAL: Grossly non focal. PSYCHIATRIC: Mood is normal. Affect is normal. LABORATORY AND STUDIES: Lab Results Component Value Date WBC 9.2 08/02/2017 HGB 13.0 08/02/2017 HCT 40.7 08/02/2017 MCV 90.8 08/02/2017 PLT 190 08/02/2017 Lab Results Component Value Date NA 142 08/02/2017 K 4.1 08/02/2017 CL 102 08/02/2017 CO2 26 08/02/2017 BUN 25 (H) 08/02/2017 CREATININE 2.02 (H) 08/02/2017 CALCIUM 8.8 08/02/2017 GLU 85 08/02/2017 IMAGING: Xr Chest Ap Portable Result Date: 08/01/2017 CLINICAL HISTORY: -SHORTNESS OF BREATH. COMPARISON: 07/22/2017. TECHNIQUE:XR CHEST AP PORTABLE on 08/01/2017 2:23 PM. FINDINGS: There is minimalatelectasis in the left lung but the lungs are otherwise clear. There isno pneumothorax or pleural effusion. The heart size and pulmonaryvascularity are stable. The upper abdomen and osseous structures areunremarkable. No acute findings. Ek Ekg 12 Lead Result Date: 08/01/2017 NOTICE: Preliminary tracing available for review; Final Interpretation byphysician to follow. Stationary ECG StudySt. Sandra MantillaInterpretive Statements SINUSBRADYCARDIA LOW QRS VOLTAGE IN PRECORDIAL LEADS INFERIOR MYOCARDIALINFARCTION, OF INDETERMINATE AGE ANTEROSEPTAL MYOCARDIAL INFARCTION,PROBABLY OLD Electronically Signed On 08-01-2017 16:46:17 EDT by MD Zelalem [facility]: Active Hospital Problems Diagnosis ? ? *NSTEMI (non-ST elevated myocardial infarction) (HCC) ? ? Mood disorder (HCC) ? ? 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 3 chronic kidneydisease, with long-term current use of insulin (HCC) ? ? Chronic diastolic CHF (congestive heart failure) ([facility]) ASSESSMENT AND PLAN: This is a 67 y.o. female with the followin. Chest pain Trop 0.13-->0.13-->0.14. Linear, nonspecific EKG with Old Inf/Ant infarcts On Ranexa, Imdur, amlodipine Defer any ischemic workup at present 2. CAD - Card cath (10/2016): 50-60% mid LAD, 50% ost RCA, pEF - managed medically Nonischemic stress (04/2017) Card Cath 07/25/17: ?? Ost RCA lesion 60% stenosed. ?? Mid RCA lesion 40% stenosed. ?? Mid LAD lesion 50% stenosed. Significant but not clearly flow limiting dz Ostial RCA of 50-70% - difficult to image due to angulation with FFR of0.92 Mid LAD appearing 50% with FFR of 0.82 Normal LVEDP Asa, statin, Plavix, Imdur 3. Atrial Flutter S/p ablation 2015 4. HTN BP low on at present 5. Hx of CVA Residual Left sided hemiparesis 6. JACK on CKD Cr 2.02 DC lisinopril, lasix Follow BMP in am 7. Obesity Dr Bailey to See Ollie Davis, NIKO 08/02/2017 12:29 PM Cardiology: ATTENDING PHYSICIAN ATTESTATION: The patient was seen in collaboration with the nurse practioner. I have reviewed all the pertinent history, laboratory and radiologystudies. I have taken a history and performed a physical examination of thispatient. I agree with the history, physical, assessment and plan as outlinedabove. Patent seen and examined Chest exam: negative CVS NO JVD S1 S2 normal No murmurs or gallops As above. Her chest pain is atypical and is clearly improved.. Patientstates she wants to go home. No further cardiac workup at this time. Herblood pressure iss on the low side and we will therefore reduce herclonidine to 0.1 mg daily. Okay to go from cardiac standpoint. Follow-up Dr. Devries 4 weeks Thanks for consult TROPONIN-T Timed 08/01/2017 4:02 PM EDT XR CHEST AP PORTABLE EMMY 08/01/2017 2:23 PM EDT TROPONIN-T STAT 08/01/2017 2:10 PM EDT CBC WITH DIFF STAT 08/01/2017 2:10 PM EDT BASIC METABOLIC PANEL STAT 08/01/2017 2:10 PM EDT EK EKG 12 LEAD STAT 08/01/2017 1:23 PM EDT ECG AND WAVEFORMS - TELEMETRY Routine 07/26/2017 8:00 AM EDT ECG AND WAVEFORMS - TELEMETRY Routine 07/26/2017 5:46 AM EDT documented in this encounter Results * (ABNORMAL) GLUCOSE METER POC (08/03/2017 12:36 PM EDT) Glucose Meter POC 236(H) 70 - 100 mg/dL 08/03/2017 12:38 PM EDT [facility] Sample Type Capillary 08/03/2017 12:38 PM EDT [facility] Patient Status Non-Critical Patient 08/03/2017 12:38 PM EDT [facility] Blood BLOOD SPECIMEN / Unknown 08/03/2017 12:36 PM EDT 08/03/2017 12:38 PM EDT us Eunice Polanco MD POINT OF CARE TEST ORDERABLE S Final Result [facility] [address] [place], [place] [id number] * GLUCOSE METER POC (08/03/2017 8:07 AM EDT) Glucose Meter POC 77 70 - 100 mg/dL 08/03/2017 8:09 AM EDT [facility] Sample Type Capillary 08/03/2017 8:09 AM EDT [facility] Patient Status Non-Critical Patient 08/03/2017 8:09 AM EDT [facility] Blood BLOOD SPECIMEN / Unknown 08/03/2017 8:07 AM EDT 08/03/2017 8:09 AM EDT us Euncie Polanco MD POINT OF CARE TEST ORDERABLE S Final Result [facility] [address] [id number] * CBC WITH DIFF (08/03/2017 5:49 AM EDT) WBC 8.1 3.7 - 10.3 x10(3)/mcL 08/03/2017 5:57 AM EDT [facility] RBC 4.64 3.90 - 5.20 x10(6)/mcL 08/03/2017 5:57 AM EDT [facility] Hgb 13.5 11.2 - 15.7 g/dL 08/03/2017 5:57 AM EDT [facility] Hct 43.2 34.0 - 45.0 % 08/03/2017 5:57 AM EDT [facility] MCV 93.1 79.0 - 98.0 fL 08/03/2017 5:57 AM EDT [facility] MCH 29.1 26.0 - 32.0 pg 08/03/2017 5:57 AM EDT [facility] MCHC 31.3 30.7 - 35.5 g/dL 08/03/2017 5:57 AM EDT [facility] RDW 13.3 <=14.9 % 08/03/2017 5:57 AM EDT [facility] Platelet 227 155 - 369 x10(3)/mcL 08/03/2017 5:57 AM EDT [facility] MPV 11.1 8.8 - 12.5 fL 08/03/2017 5:57 AM EDT [facility] Neut Percent 63.8 % 08/03/2017 5:57 AM EDT [facility] Comment:Neutrophils equals s egs plus bands Imm Gran% 0.7 % 08/03/2017 5:57 AM EDT [facility] Comment:Automated count of m etamyelocytes, myelocytes and promyelocytes Lymph Percent 25.7 % 08/03/2017 5:57 AM EDT [facility] [place] Percent 6.0 % 08/03/2017 5:57 AM EDT [facility] Eos Percent 3.2 % 08/03/2017 5:57 AM EDT [facility] Baso Percent 0.6 % 08/03/2017 5:57 AM EDT [facility] Neut # 5.2 1.6 - 6.1 x10(3)/[facility] 08/03/2017 5:57 AM EDT [facility] Comment:Neutrophils equals s egs plus bands IMMGRAN# 0.1 0.0 - 0.1 x10(3)/[facility] 08/03/2017 5:57 AM EDT [facility] Comment:Automated count of m etamyelocytes, myelocytes and promyelocytes Lymph # 2.1 1.2 - 3.9 x10(3)/[facility] 08/03/2017 5:57 AM EDT [facility] [place] # 0.5 0.3 - 0.9 x10(3)/[facility] 08/03/2017 5:57 AM EDT [facility] Eos# 0.3 0.0 - 0.5 x10(3)/[facility] 08/03/2017 5:57 AM EDT [facility] Baso # 0.1 0.0 - 0.1 x10(3)/[facility] 08/03/2017 5:57 AM EDT [facility] Blood VENOUS BLOOD / Unknown Venipuncture / Unknown 08/03/2017 5:49 AM EDT 08/03/2017 5:53 AM EDT us Eunice Polanco MD HEMATOLOGY ORDERABLES Final Result [facility] [address] [id number] * (ABNORMAL) BASIC METABOLIC PANEL (08/03/2017 5:49 AM EDT) Sodium 141 136 - 145 mmol/L 08/03/2017 6:24 AM EDT [facility] Potassium 4.2 3.5 - 5.0 mmol/L 08/03/2017 6:24 AM EDT [facility] Chloride 102 98 - 107 mmol/L 08/03/2017 6:24 AM [facility] Total CO2 26 22 - 29 mmol/L 08/03/2017 6:24 AM [facility] Anion Gap 13 7 - 16 mmol/L 08/03/2017 6:24 AM [facility] Calcium 9.3 8.8 - 10.2 mg/dL 08/03/2017 6:24 AM [facility] Glucose Lvl 61(L) 82 - 100 mg/dL 08/03/2017 6:24 AM [facility] BUN 25(H) 8 - 23 mg/dL 08/03/2017 6:24 AM [facility] Creatinine 1.83(H) 0.51 - 1.30 mg/dL 08/03/2017 6:24 AM [facility] GFR Afr Am 33 mL/min/1.7 3 m2 08/03/2017 6:24 AM [facility] GFR Non Afr Am 28 mL/min/1.7 3 m2 08/03/2017 6:24 AM [facility] Comment: GFR Afr Am and GFR Non [...] VENOUS BLOOD / Unknown Venipuncture / Unknown 08/03/2017 5:49 AM EDT 08/03/2017 5:53 AM EDT Eunice Polanco MD CHEMISTRY ORDERABLES Final R esult Performing Organization Address City/[facility] Co de Phone Number [facility] [address] [place] [address] * ECG AND WAVEFORMS - TELEMETRY (08/03/2017 4:55 AM EDT) [facility] ECG INTERPRET Sinus Bradycardia [facility] NURSE PRACTICAL APPROVED Yes [facility] 08/03/2017 4:55 AM EDT Narrative [facility] - 08/03/2017 5:01 AM EDT ??VT 0.18 ??QRS 0.09 ??QT 0.46 ??See Clinical Report link for waveform capture us Unknown Provider POINT OF CARE CARDIOLOGY Final Result Performing Organization Address [facility] de Phone Number [facility] [address] [place] [address] * (ABNORMAL) GLUCOSE METER POC (08/02/2017 8:04 PM EDT) Glucose Meter POC 120(H) 70 - 100 mg/dL 08/02/2017 8:06 PM EDT [facility] Sample Type Capillary 08/02/2017 8:06 PM EDT [facility] Patient Status Non-Critical Patient 08/02/2017 8:06 PM EDT [facility] Blood BLOOD SPECIMEN / Unknown 08/02/2017 8:04 PM EDT 08/02/2017 8:06 PM EDT us Eunice Polanco MD POINT OF CARE TEST ORDERABLE S Final Result Performing Organization Address [facility] Co de Phone Number [facility] [address] [place] [address] * (ABNORMAL) GLUCOSE METER POC (08/02/2017 4:43 PM EDT) [facility] Glucose Meter POC 130(H) 70 - 100 mg/dL 08/02/2017 4:45 PM EDT [facility] Sample Type Capillary 08/02/2017 4:45 PM EDT [facility] Patient Status Non-Critical Patient 08/02/2017 4:45 PM EDT [facility] Blood BLOOD SPECIMEN / Unknown 08/02/2017 4:43 PM EDT 08/02/2017 4:45 PM EDT us Eunice Polanco MD POINT OF CARE TEST ORDERABLE S Final Result Performing Organization Address [facility]/ZIP Co de Phone Number [facility] [address] [place] [address] * ECG AND WAVEFORMS - TELEMETRY (08/02/2017 4:12 PM EDT) [facility] ECG INTERPRET Sinus Bradycardia [facility] NURSE PRACTICAL APPROVED Yes [facility] 08/02/2017 4:12 PM EDT Narrative [facility] - 08/02/2017 4:17 PM EDT ??VT 0.20 ??QRS 0.09 ??QT 0.43 ??See Clinical Report link for waveform capture us Unknown Provider POINT OF CARE CARDIOLOGY Final Result Performing Organization Address City/[facility]/ZIP Co de Phone Number [facility] [address] [place] [address] * CBC WITH DIFF (08/02/2017 8:26 AM EDT) WBC 9.2 3.7 - 10.3 x10(3)/mcL 08/02/2017 9:36 AM EDT [facility] RBC 4.48 3.90 - 5.20 x10(6)/mcL 08/02/2017 9:36 AM EDT [facility] Hgb 13.0 11.2 - 15.7 g/dL 08/02/2017 9:36 AM EDT [facility] Hct 40.7 34.0 - 45.0 % 08/02/2017 9:36 AM EDT [facility] MCV 90.8 79.0 - 98.0 fL 08/02/2017 9:36 AM EDT [facility] MCH 29.0 26.0 - 32.0 pg 08/02/2017 9:36 AM EDT [facility] MCHC 31.9 30.7 - 35.5 g/dL 08/02/2017 9:36 AM EDT [facility] RDW 13.5 <=14.9 % 08/02/2017 9:36 AM EDT [facility] Platelet 190 155 - 369 x10(3)/mcL 08/02/2017 9:36 AM EDT [facility] MPV 11.4 8.8 - 12.5 fL 08/02/2017 9:36 AM EDT [facility] Neut Percent 66.3 % 08/02/2017 9:36 AM EDT [facility] Comment:Neutrophils equals s egs plus bands Imm Gran% 1.1 % 08/02/2017 9:36 AM EDT [facility] Comment:Automated count of m etamyelocytes, myelocytes and promyelocytes Lymph Percent 21.6 % 08/02/2017 9:36 AM EDT [facility] [place] Percent 8.0 % 08/02/2017 9:36 AM EDT [facility] Eos Percent 2.6 % 08/02/2017 9:36 AM EDT [facility] Baso Percent 0.4 % 08/02/2017 9:36 AM EDT [facility] Neut # 6.1 1.6 - 6.1 x10(3)/mcL 08/02/2017 9:36 AM EDT [facility] Comment:Neutrophils equals s egs plus bands IMMGRAN# 0.1 0.0 - 0.1 x10(3)/mcL 08/02/2017 9:36 AM EDT [facility] Comment:Automated count of m etamyelocytes, myelocytes and promyelocytes Lymph # 2.0 1.2 - 3.9 x10(3)/[facility] 08/02/2017 9:36 AM EDT [facility] [place] # 0.7 0.3 - 0.9 x10(3)/[facility] 08/02/2017 9:36 AM EDT [facility] Eos# 0.2 0.0 - 0.5 x10(3)/[facility] 08/02/2017 9:36 AM EDT [facility] Baso # 0.0 0.0 - 0.1 x10(3)/[facility] 08/02/2017 9:36 AM EDT [facility] Blood VENOUS BLOOD / Unknown Venipuncture / Unknown 08/02/2017 8:26 AM EDT 08/02/2017 8:35 AM EDT us Eunice Polanco MD HEMATOLOGY [place]AB[place] [address] * GLUCOSE METER POC (08/02/2017 8:14 AM EDT) [facility] Glucose Meter POC 84 70 - 100 mg/dL 08/02/2017 8:15 AM EDT [facility] Sample Type Capillary 08/02/2017 8:15 AM EDT [facility] Patient Status Non-Critical Patient 08/02/2017 8:15 AM EDT [facility] Blood BLOOD SPECIMEN / Unknown 08/02/2017 8:14 AM EDT 08/02/2017 8:15 AM EDT us Eunice Polanco MD POINT OF CARE TEST ORDERABLE S Final Result [address] [address] * (ABNORMAL) BASIC METABOLIC PANEL (08/02/2017 6:14 AM EDT) [facility] Sodium 142 136 - 145 mmol/L 08/02/2017 6:55 AM [facility] Potassium 4.1 3.5 - 5.0 mmol/L 08/02/2017 6:55 AM [facility] Chloride 102 98 - 107 mmol/L 08/02/2017 6:55 AM [facility] Total CO2 26 22 - 29 mmol/L 08/02/2017 6:55 AM [facility] Anion Gap 14 7 - 16 mmol/L 08/02/2017 6:55 AM [facility] Calcium 8.8 8.8 - 10.2 mg/dL 08/02/2017 6:55 AM [facility] Glucose Lvl 85 82 - 100 mg/dL 08/02/2017 6:55 AM [facility] BUN 25(H) 8 - 23 mg/dL 08/02/2017 6:55 AM [facility] Creatinine 2.02(H) 0.51 - 1.30 mg/dL 08/02/2017 6:55 AM [facility] GFR Afr Am 29 mL/min/1.7 3 m2 08/02/2017 6:55 AM [facility] GFR Non Afr Am 25 mL/min/1.7 3 m2 08/02/2017 6:55 AM [facility] Comment: GFR Afr Am and GFR Non [...] VENOUS BLOOD / Unknown Venipuncture / Unknown 08/02/2017 6:14 AM EDT 08/02/2017 6:27 AM EDT us Eunice Polanco MD CHEMISTRY ORDERABLES Final R esult [facility] [address] [place] [address] * (ABNORMAL) LIPID SCREEN (08/02/2017 6:14 AM EDT) Cholesterol 115 <=200 mg/dL 08/02/2017 6:55 AM EDT [facility] Comment: < 200 ?Desirable 200 - 239 ? Borderline High >= 240 ?High Triglyceride 254(H) <=150 mg/dL 08/02/2017 6:55 AM EDT [facility] Comment: < 150 ? Normal 150 - 199 ?Borderline High 200 - 499 ?High ??>= 500 ? Very High HDL 37(L) >=40 mg/dL 08/02/2017 6:55 AM EDT [facility] Comment: ??> 60 ?Optimal 40 - 60 ?Acceptable ?? < 40 ?Low LDL Calculated 27 <=100 mg/dL 08/02/2017 6:55 AM EDT [facility] Comment: < 100 ?Optimal 100 - 129 ? Near or above optimal 130 - 159 ? Borderline High 160 - 189 ? High >= 190 ?Very High Non-HDL-C Calculated 78 <=129 mg/dL 08/02/2017 6:55 AM EDT [facility] Comment: <130 ?Desirable 130-159 Above Desirable 160-189 Borderline High 190-219 High >= 220 ??Very High Blood VENOUS BLOOD / Unknown Venipuncture / Unknown 08/02/2017 6:14 AM EDT 08/02/2017 6:27 AM EDT us Eunice Polanco MD CHEMISTRY ORDERABLES Final R esult Performing Organization Address [facility] Co de Phone Number [facility] [address] [place] [address] * ECG AND WAVEFORMS - TELEMETRY (08/02/2017 5:05 AM EDT) [facility] ECG INTERPRET Sinus Bradycardia [facility] NURSE PRACTICAL APPROVED Yes [facility] 08/02/2017 5:05 AM EDT Narrative [facility] - 08/02/2017 5:15 AM EDT ??VT 0.17 ??QRS 0.10 ??QT 0.53 ??See Clinical Report link for waveform capture us Unknown Provider POINT OF CARE CARDIOLOGY Final Result Performing Organization Address [facility] de Phone Number [facility] [address] [place] [address] * (ABNORMAL) GLUCOSE METER POC (08/01/2017 9:33 PM EDT) Glucose Meter POC 119(H) 70 - 100 mg/dL 08/01/2017 9:35 PM EDT [facility] Sample Type Capillary 08/01/2017 9:35 PM EDT [facility] Patient Status Non-Critical Patient 08/01/2017 9:35 PM EDT [facility] Blood BLOOD SPECIMEN / Unknown 08/01/2017 9:33 PM EDT 08/01/2017 9:34 PM EDT us Self Referral POINT OF CARE TEST ORDERABLES Fi nal Result Performing Organization Address [facility]/[place] [address] * (ABNORMAL) TROPONIN-T (08/01/2017 8:11 PM EDT) Troponin-T 0.14(H) <0.01 ng/mL 08/01/2017 8:45 PM EDT [facility] Blood VENOUS BLOOD / Unknown Butterfly / Unknown 08/01/2017 8:11 PM EDT 08/01/2017 8:21 PM EDT Narrative [facility] - 08/01/2017 8:45 PM EDT Ingestion of charles doses of biotin (>5 mg/day) taken within 8 hours of drawing blood sample can interfere with this immunoassay test. us Colleen Ghosh MD CHEMISTRY ORDERABLES Final Result Performing Organization Address [facility] [place] [address] * GLUCOSE METER POC (08/01/2017 6:09 PM EDT) Glucose Meter POC 89 70 - 100 mg/dL 08/01/2017 6:10 PM EDT [facility] Sample Type Capillary 08/01/2017 6:10 PM EDT [facility] Patient Status Non-Critical Patient 08/01/2017 6:10 PM EDT [facility] Blood BLOOD SPECIMEN / Unknown 08/01/2017 6:09 PM EDT 08/01/2017 6:10 PM EDT us Self Referral POINT OF CARE TEST ORDERABLES Fi nal Result Performing Organization Address City/[facility]/ZIP Co de Phone Number [facility] [address] [place] [address] * ECG AND WAVEFORMS - TELEMETRY (08/01/2017 5:34 PM EDT) ECG INTERPRET Sinus Bradycardia [facility] N[facility]SE PRACTICAL APPROVED Yes [facility] 08/01/2017 5:34 PM EDT Narrative [facility] - 08/01/2017 5:38 PM EDT ??VT 0.18 ??QRS 0.07 ??QT 0.45 ??See Clinical Report link for waveform capture us Unknown Provider POINT OF CARE CARDIOLOGY [place] [address] * (ABNORMAL) TROPONIN-T (08/01/2017 4:02 PM EDT) [facility] Troponin-T 0.13(H) <0.01 ng/mL 08/01/2017 4:32 PM EDT [facility] Blood VENOUS BLOOD / Unknown Venipuncture / Unknown 08/01/2017 4:02 PM EDT 08/01/2017 4:06 PM EDT Narrative [facility] - 08/01/2017 4:32 PM EDT Ingestion of charles doses of biotin (>5 mg/day) taken within 8 hours of drawing blood sample can interfere with this immunoassay test. us Colleen Ghosh MD CHEMISTRY ORDERABLES Final Result [facility] [address] [place] [address] * XR CHEST AP PORTABLE (08/01/2017 2:23 PM EDT) Anatomical Region Laterality Modality Chest Radiographic Whit ging 08/01/2017 2:23 PM EDT Impressions 08/01/2017 2:29 PM EDT No acute findings. Narrative 08/01/2017 2:29 PM EDT CLINICAL HISTORY: -SHORTNESS OF BREATH. COMPARISON: 07/22/2017. TECHNIQUE: XR CHEST AP PORTABLE on 08/01/2017 2:23 PM. FINDINGS: There is minimal atelectasis in the left lung but the lungs are otherwise clear. There is no pneumothorax or pleural effusion. The heart size and pulmonary vascularity are stable. The upper abdomen and osseous structures are unremarkable. Procedure Note Shane Clayton MD - 08/01/2017 CLINICAL HISTORY: -SHORTNESS OF BREATH. COMPARISON: 07/22/2017. TECHNIQUE: XR CHEST AP PORTABLE on 08/01/2017 2:23 PM. FINDINGS: There is minimal atelectasis in the left lung but the lungsare otherwise clear. There is no pneumothorax or pleural effusion. The heartsize and pulmonary vascularity are stable. The upper abdomen and osseousstructures are unremarkable. IMPRESSION: No acute findings. Colleen Ghosh MD IMG DIAGNOSTIC IMAGING [facility] Final Result * (ABNORMAL) TROPONIN-T (08/01/2017 2:10 PM EDT) Pathologist [facility] [place] Troponin-T 0.13(H) <0.01 ng/mL 08/01/2017 2:43 PM EDT [facility] Blood VENOUS BLOOD / Unknown Venipuncture / Unknown 08/01/2017 2:10 PM EDT 08/01/2017 2:15 PM EDT Narrative [facility] - 08/01/2017 2:43 PM EDT Ingestion of charles doses of biotin (>5 mg/day) taken within 8 hours of drawing blood sample can interfere with this immunoassay test. Colleen Ghosh MD CHEMISTRY ORDERABLES Final Result [facility] [address] [place] [address] * (ABNORMAL) BASIC METABOLIC PANEL (08/01/2017 2:10 PM EDT) [facility] Sodium 141 136 - 145 mmol/L 08/01/2017 2:42 PM EDT [facility] Potassium 4.5 3.5 - 5.0 mmol/L 08/01/2017 2:42 PM EDT [facility] Chloride 100 98 - 107 mmol/L 08/01/2017 2:42 PM [facility] Total CO2 30(H) 22 - 29 mmol/L 08/01/2017 2:42 PM [facility] Anion Gap 11 7 - 16 mmol/L 08/01/2017 2:42 PM [facility] Calcium 9.8 8.8 - 10.2 mg/dL 08/01/2017 2:42 PM [facility] Glucose Lvl 142(H) 82 - 100 mg/dL 08/01/2017 2:42 PM [facility] BUN 19 8 - 23 mg/dL 08/01/2017 2:42 PM [facility] Creatinine 1.36(H) 0.51 - 1.30 mg/dL 08/01/2017 2:42 PM [facility] GFR Afr Am 47 mL/min/1.7 3 m2 08/01/2017 2:42 PM [facility] GFR Non Afr Am 41 mL/min/1.7 3 m2 08/01/2017 2:42 PM [facility] Comment: GFR Afr Am and GFR Non [...] VENOUS BLOOD / Unknown Venipuncture / Unknown 08/01/2017 2:10 PM EDT 08/01/2017 2:15 PM EDT us Colleen Ghosh MD CHEMISTRY ORDERABLES Final Result Performing Organization Address [facility]/State/ZIP Co de Phone Number [facility] [address] [place] [address] * CBC WITH DIFF (08/01/2017 2:10 PM EDT) WBC 7.6 4.0 - 11.0 x10(3)/mcL 08/01/2017 2:31 PM EDT [facility] RBC 4.69 3.80 - 5.10 x10(6)/mcL 08/01/2017 2:31 PM EDT [facility] Hgb 13.6 12.0 - 15.6 g/dL 08/01/2017 2:31 PM EDT [facility] Hct 40.9 35.7 - 45.9 % 08/01/2017 2:31 PM EDT [facility] MCV 87.4 82.5 - 99.8 fL 08/01/2017 2:31 PM EDT [facility] MCH 28.9 27.0 - 34.3 pg 08/01/2017 2:31 PM EDT [facility] MCHC 33.1 32.1 - 35.3 g/dL 08/01/2017 2:31 PM EDT [facility] RDW 14.4 11.5 - 15.0 % 08/01/2017 2:31 PM EDT [facility] Platelet 254 144 - 423 x10(3)/mcL 08/01/2017 2:31 PM EDT [facility] MPV 9.6 6.8 - 10.8 fL 08/01/2017 2:31 PM EDT [facility] Neut Percent 71.2 % 08/01/2017 2:31 PM EDT [facility] Lymph Percent 21.6 % 08/01/2017 2:31 PM EDT [facility] [place] Percent 4.0 % 08/01/2017 2:31 PM EDT [facility] Eos Percent 2.6 % 08/01/2017 2:31 PM EDT [facility] Baso Percent 0.6 % 08/01/2017 2:31 PM EDT [facility] Neut # 5.4 1.8 - 7.7 x10(3)/[facility] 08/01/2017 2:31 PM EDT [facility] Lymph # 1.6 0.6 - 4.8 x10(3)/[facility] 08/01/2017 2:31 PM EDT [facility] [place] # 0.3 0.0 - 1.3 x10(3)/[facility] 08/01/2017 2:31 PM EDT [facility] Eos# 0.2 0.0 - 0.5 x10(3)/[facility] 08/01/2017 2:31 PM EDT [facility] Baso # 0.0 0.0 - 0.2 x10(3)/[facility] 08/01/2017 2:31 PM EDT [facility] Blood VENOUS BLOOD / Unknown Venipuncture / Unknown 08/01/2017 2:10 PM EDT 08/01/2017 2:15 PM EDT us Colleen Ghosh MD HEMATOLOGY ORDERABLES Final Result [facility] [address] [place] [address] * EK EKG 12 LEAD (08/01/2017 1:23 PM EDT) Anatomical Region Laterality Modality Electrocardiogra phy 08/01/2017 1:39 PM EDT Impressions 08/01/2017 4:46 PM EDT ? Stationary ECG Study ?[facility] ? Interpretive Statements ? SINUS BRADYCARDIA LOW QRS VOLTAGE IN PRECORDIAL LEADS INFERIOR MYOCARDIAL INFARCTION, OF INDETERMINATE AGE ANTEROSEPTAL MYOCARDIAL INFARCTION, PROBABLY OLD Electronically Signed On 08-01-2017 16:46:17 EDT by Alok Pinon MD Narrative Procedure Note Alok Pinon MD - 08/01/2017 IMPRESSION [address] ECG Study [facility] Interpretive Statements SINUS BRADYCARDIA LOW QRS VOLTAGE IN PRECORDIAL LEADS INFERIOR MYOCARDIAL INFARCTION, OF INDETERMINATE AGE ANTEROSEPTAL MYOCARDIAL INFARCTION, PROBABLY OLD Electronically Signed On 08-01-2017 16:46:17 EDT by Alok Pinon MD Colleen Ghosh MD IMG ECG ORDERABLES Final Re sult * ECG AND WAVEFORMS - TELEMETRY (07/26/2017 8:00 AM EDT) [facility] ECG INTERPRET Ventricular Tachycardia [facility] NURSE PRACTICAL APPROVED Yes [facility] 07/26/2017 8:00 AM EDT Narrative [facility] - 08/01/2017 4:52 PM EDT ??See Clinical Report link for waveform capture us Unknown Provider POINT OF CARE CARDIOLOGY Final Result Performing Organization Address City/[facility]/ZIP Co de Phone Number [facility] [address] [place] [address] * ECG AND WAVEFORMS - TELEMETRY (07/26/2017 5:46 AM EDT) ECG INTERPRET NSR [facility] NURSE PRACTICAL APPROVED Yes [facility] 07/26/2017 5:46 AM EDT Narrative [facility] - 08/01/2017 4:52 PM EDT ??VT 0.17 ??QRS 0.09 ??QT 0.43 ??See Clinical Report link for waveform capture us Unknown Provider POINT OF CARE CARDIOLOGY Final Result Performing Organization Address [facility] Co de Phone Number 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 acetaminophen (TYLENOL) tablet 650 mg 650 mg, Oral, EVERY 4 HOURS PRN, Starting on Wed08/01/17 at 1729, Until Wed08/03/17 at 2115, Fever, Headaches, Maximum adult dose of acetaminophen is 4000 mg from all sources in 24 hours. amLODIPine (NORVASC) tablet 2.5 mg 2.5 mg, Oral, DAILY, First dose on Wed08/02/17 at 0900, Until Discontinued Given 08/03/2017 9:50 AM EDT 2.5 mg ARIPiprazole (ABILIFY) tablet 30 mg 30 mg, Oral, DAILY, First dose on Wed08/02/17 at 0900, Until Discontinued Given 08/03/2017 9:51 AM EDT 30 mg aspirin chewable tablet 81 mg 81 mg, Oral, DAILY, First dose on Wed08/02/17 at 0900, Until Discontinued Given 08/03/2017 9:53 AM EDT 81 mg aspirin tablet 325 mg 325 mg, Oral, ONCE, 1 dose, On Wed08/01/17 at 1400 Given 08/01/2017 2:17 PM EDT 325 mg atorvastatin (LIPITOR) tablet 20 mg 20 mg, Oral, NIGHTLY, First dose on Wed08/01/17 at 2100, Until Discontinued Given 08/02/2017 8:33 PM EDT 20 mg cloNIDine HCl (CATAPRES) tablet 0.1 mg 0.1 mg, Oral, 2 TIMES DAILY, First dose on Wed08/01/17 at 2100, Until Discontinued Given 08/02/2017 8:45 AM EDT 0.1 mg cloNIDine HCl (CATAPRES) tablet 0.1 mg 0.1 mg, Oral, DAILY, First dose (after last modification) on Wed08/03/17 at 0900, Until Discontinued Given 08/03/2017 9:53 AM EDT 0.1 mg clopidogrel (PLAVIX) tablet 75 mg 75 mg, Oral, DAILY, First dose on Wed08/02/17 at 0900, Until Discontinued Given 08/03/2017 9:53 AM EDT 75 mg dextrose 50 % solution 25 mL 25 mL, Intravenous, PRN, Starting on Wed08/01/17 at 1617, Until Wed08/03/17 at 2115, Low blood sugar, If FSBS less than 70 mg/dl and patient cannot take orally, Check FSBS every 30 minutes and repeat 25 mL of D50 IV push and notify physician if FSBS less than 70 mg/dL VESICANT enoxaparin (LOVENOX) injection 40 mg 40 mg, Subcutaneous, DAILY, First dose on Wed08/01/17 at 2030, Until Discontinued Given 08/03/2017 9:50 AM EDT 40 mg Right Lower Quadrant- Abdomen ferrous sulfate tablet 325 mg 325 mg, Oral, 2 TIMES DAILY WITH MEALS, First dose on Wed08/01/17 at 1800, Until Discontinued Given 08/03/2017 9:53 AM EDT 325 mg fUROsemide (LASix) tablet 20 mg 20 mg, Oral, DAILY, First dose on Wed08/02/17 at 0900, Until Discontinued Given 08/02/2017 8:43 AM EDT 20 mg glipiZIDE (GLUCOTROL) tablet 10 mg 10 mg, Oral, 2 TIMES DAILY WITH MEALS, First dose on Wed08/01/17 at 1800, Until Discontinued Given 08/03/2017 9:50 AM EDT 10 mg glucagon (human recombinant) (GLUCAGEN) injection 1 mg 1 mg, Intramuscular, PRN, Starting on Wed08/01/17 at 1617, Until Wed08/03/17 at 2115, Low blood sugar, If FSBS less than 70 mg/dl, patient cannot take orally and without IV access, If patient is without IV access, give Glucagon 1 mg Intramuscularly, insert IV and call physician. guar gum (BENEFIBER) packet 1 Each 1 Each, Oral, 2 TIMES DAILY WITH MEALS, First dose on Wed08/01/17 at 1930, Until Discontinued, Mix in at least 4 oz. of hot or cold beverage/water prior to administration HYDROcodone-acetamino phen (NORCO) 5-325 mg per tablet 1 Tab 1 Tablet, Oral, ONCE, 1 dose, On Wed08/01/17 at 1400, Maximum adult dose of acetaminophen is 4000 mg from all sources in 24 hours. Given 08/01/2017 2:17 PM EDT 1 Tablet hydrOXYzine (VISTARIL) capsule 25 mg 25 mg, Oral, EVERY 4 HOURS PRN, 2 doses, Starting on Wed08/02/17 at 2228, Until Wed08/03/17 at 0308, Anxiety Given 08/03/2017 3:08 AM EDT 25 mg insulin aspart U-100 (NovoLOG) injection 1-10 Units 1-10 Units, Subcutaneous, 4 TIMES DAILY WITH MEALS, First dose on Wed08/01/17 at 1800, Until Discontinued, Medium dose algorithm: FSBS? Additional [...] hours. Waste Sort Code = BKC Given 08/03/2017 1:05 PM EDT 4 Units Right Arm insulin glargine (LANTUS) injection 24 Units 24 Units, Subcutaneous, EVERY EVENING (INSULIN), First dose on Wed08/01/17 at 1900, Until Discontinued, Do not mix with other insulins Waste Sort Code = BKC Given 08/02/2017 8:31 PM EDT 24 Units Abdominal Tissue isosorbide mononitrate (IMDUR) CR tablet 60 mg 60 mg, Oral, DAILY, First dose on Wed08/02/17 at 0900, Until Discontinued Given 08/03/2017 9:53 AM EDT 60 mg lamoTRIgine (LaMICtal) tablet 25 mg 25 mg, Oral, 2 TIMES DAILY, First dose on 08/01/17 at 2100, Until Discontinued Given 08/03/2017 9:51 AM EDT 25 mg lisinopril (PRINIVIL;ZESTril) tablet 20 mg 20 mg, Oral, DAILY, First dose on Wed08/02/17 at 0900, Until Discontinued, +++ACEI Medication+++ Given 08/02/2017 8:44 AM EDT 20 mg loperamide (IMODIUM) capsule 2 mg 2 mg, Oral, 2 TIMES DAILY, First dose on Wed08/01/17 at 2100, Until Discontinued, After each loose stool - Max 16 mg (8 caps) per 24 hours. Given 08/03/2017 9:50 AM EDT 2 mg metoprolol (LOPRESSOR) tablet 25 mg 25 mg, Oral, 2 TIMES DAILY, First dose on Wed08/01/17 at 2100, Until Discontinued Given 08/03/2017 9:51 AM EDT 25 mg miconazole (MICATIN) 2 % powder Topical, 2 TIMES DAILY, 84 doses, First dose on Wed08/01/17 at 2100, Last dose on Wed09/12/17 at 0900, Application site: groin excoriation Given 08/03/2017 9:59 AM EDT miconazole (MICATIN) 2 % powder Topical, PRN, Starting on Wed08/01/17 at 1843, Until Wed08/03/17 at 211, Wound Care, Application site: groin excoriation morphine injection 2 mg 2 mg, Intravenous, EVERY 4 HOURS PRN, Starting on Wed08/01/17 at 1729, Until Wed08/03/17 at 2114, Pain, Pain Unrelieved by Oral Opioid Therapy, More Severe Pain, Begin with lowest dose unless otherwise directed. Reassess pain in 15 minutes. If pain unrelieved, remainder of dose may be given to patient. morphine injection 4 mg 4 mg, Intravenous, ONCE, 1 dose, On Wed08/01/17 at 1530 Given 08/01/2017 3:58 PM EDT 4 mg morphine injection 4 mg 4 mg, Intravenous, EVERY 4 HOURS PRN, Starting on Wed08/01/17 at 1729, Until Wed08/03/17 at 2114, Pain, Pain Unrelieved by Oral Opioid Therapy, More Severe Pain, Begin with lowest dose unless otherwise directed. Reassess pain in 15 minutes. If pain unrelieved, remainder of dose may be given to patient. nitroGLYCERIN (NITROGLYN) 2 % ointment 0.5 Inch 0.5 Inch, Topical, ONCE, 1 dose, On Wed08/01/17 at 1530, Wipe off old dose, apply to chest wall Patch Applied 08/01/2017 4:00 PM EDT 0.5 Inches nitroGLYCERIN (NITROGLYN) 2 % ointment 0.5 Inch 0.5 Inch, Topical, EVERY 6 HOURS SCHEDULED (4 times per day), First dose on Wed08/01/17 at 2300, Until Discontinued, Wipe off old dose, apply to chest wall nitroGLYCERIN (NITROSTAT) SL tablet 0.4 mg 0.4 mg, Sublingual, ONCE, 1 dose, On Wed08/01/17 at 1400, 0.4 mg = 1 Tab sublingual q5 min x 3 for CP, then notify MD if unrelieved - hold if SBP less than 90. Administer for angina/chest pain prior to administration of analgesics for angina. Given 08/01/2017 2:43 PM EDT 0.4 mg ondansetron (ZOFRAN) injection 4 mg 4 mg, Intravenous, ONCE, 1 dose, On Wed08/01/17 at 1530 Given 08/01/2017 3:56 PM EDT 4 mg ondansetron (ZOFRAN) injection 4 mg 4 mg, Intravenous, EVERY 6 HOURS PRN, Starting on Wed08/01/17 at 1729, Until Wed08/03/17 at 2115, Nausea ondansetron (ZOFRAN) tablet 4 mg 4 mg, Oral, EVERY 6 HOURS PRN, Starting on Wed08/01/17 at 1729, Until Wed08/03/17 at 2115, Nausea pantoprazole (PROTONIX) tablet 40 mg 40 mg, Oral, DAILY, First dose on Wed08/02/17 at 0900, Until Discontinued, Do not crush or chew Given 08/03/2017 9:53 AM EDT 40 mg ranolazine (RANEXA) SR tablet 1,000 mg 1,000 mg, Oral, EVERY 12 HOURS SCHEDULED (2 times per day), First dose on Wed08/01/17 at 2100, Until Discontinued Given 08/03/2017 9:53 AM EDT 1,000 mg sertraline (ZOLOFT) tablet 200 mg 200 mg, Oral, DAILY, First dose on Wed08/02/17 at 0900, Until Discontinued Given 08/03/2017 9:53 AM EDT 200 mg sodium chloride 0.9 % 500 mL IV bolus Intravenous, ONCE, 1 dose, On Wed08/02/17 at 0030, at 967.7 mL/hr IV Started 08/02/2017 12:33 AM EDT 967.7 mL/hr traZODone (DESYREL) tablet 150 mg 150 mg, Oral, NIGHTLY, First dose on Wed08/01/17 at 2100, Until Discontinued Given 08/02/2017 8:33 PM EDT 150 mg documented in this encounter Discontinued Medications Medication Sig Discontinue Reason Start Date End Da te cloNIDine HCl (CATAPRES) 0.1 mg Oral Tablet Take 1 Tab by mouth 2 times daily. Hold for SBP <90 07/20/2017 08/02/2017 documented as of this encounter Active and Recently Administered Medications Times are shown in EDT. Scheduled Medication Order 08/01/2017 08/02/2017 08/03/2017 amLODIPine (NORVASC) tablet 2.5 mg 2.5 mg, Oral, DAILY, First dose on Wed08/02/17 at 0900, Until Discontinued 08 (Given - Provider: Anaya Rome RN) 0950 (Given - Provider: Cece Nice, ROLF) ARIPiprazole (ABILIFY) tablet 30 mg 30 mg, Oral, DAILY, First dose on Wed08/02/17 at 0900, Until Discontinued 842 (Given - Provider: Anaya Rome RN) 0951 (Given - Provider: Cece Nice, ROLF) aspirin chewable tablet 81 mg 81 mg, Oral, DAILY, First dose on Wed08/02/17 at 0900, Until Discontinued 842 (Given - Provider: Anaya Rome RN) 0953 (Given - Provider: Cece Nice RN) aspirin tablet 325 mg (COMPLETED) 325 mg, Oral, ONCE, 1 dose, On 08/01/17 at 1400 1417 (Given - Provider: Brea Givens, ROLF) atorvastatin (LIPITOR) tablet 20 mg 20 mg, Oral, NIGHTLY, First dose on 08/01/17 at 2100, Until Discontinued 2017 (Given - Provider: Ange Cody, ROLF) 2032 (Given - Provider: Fior Guo RN) cloNIDine HCl (CATAPRES) tablet 0.1 mg (CANCELED) 0.1 mg, Oral, 2 TIMES DAILY, First dose on 08/01/17 at 2100, Until Discontinued 2017 (Given - Provider: Ange Cody, ROLF) 45 (Given - Provider: Anaya Rome RN) cloNIDine HCl (CATAPRES) tablet 0.1 mg 0.1 mg, Oral, DAILY, First dose (after last modification) on Wed08/03/17 at 0900, Until Discontinued 952 (Given - Provider: Cece Nice RN) clopidogrel (PLAVIX) tablet 75 mg 75 mg, Oral, DAILY, First dose on Wed08/02/17 at 0900, Until Discontinued 0844 (Given - Provider: Anaya Rome RN) 0953 (Given - Provider: Cece Nice RN) enoxaparin (LOVENOX) injection 40 mg 40 mg, Subcutaneous, DAILY, First dose on 08/01/17 at 2030, Until Discontinued 2024 (Given - Provider: Ange Cody RN) 0839 (Given - Provider: Anaya Rome RN) 0950 (Given - Provider: Cece Nice RN) ferrous sulfate tablet 325 mg 325 mg, Oral, 2 TIMES DAILY WITH MEALS, First dose on 08/01/17 at 1800, Until Discontinued 1918 (Given - Provider: Sandra Rose RN) 0842 (Given - Provider: Anaya Rome RN)170 (Given - Provider: Anaya Rome RN) 0953 (Given - Provider: Cece Nice RN) fUROsemide (LASix) tablet 20 mg (CANCELED) 20 mg, Oral, DAILY, First dose on Wed08/02/17 at 0900, Until Discontinued 0843 (Given - Provider: Anaya Rome RN) glipiZIDE (GLUCOTROL) tablet 10 mg 10 mg, Oral, 2 TIMES DAILY WITH MEALS, First dose on 08/01/17 at 1800, Until Discontinued 1918 (Given - Provider: Sandra Rose RN) 0845 (Given - Provider: Anaya Rome RN)170 (Given - Provider: Anaya Rome RN) 0950 (Given - Provider: Cece Nice RN) guar gum (BENEFIBER) packet 1 Each 1 Each, Oral, 2 TIMES DAILY WITH MEALS, First dose on 08/01/17 at 1930, Until Discontinued, Mix in at least 4 oz. of hot or cold beverage/water prior to administration 0 (Not Given - Provider: Ange Cody RN - Reason: Patient/family declined) 0840 (Not Given - Provider: Anaya Rome RN - Reason: Patient/family declined)1800 (Hold - Provider: Anaya Rome RN - Reason: Patient/family declined) 0951 (Not Given - Provider: Cece Nice RN - Reason: Patient/family declined) HYDROcodone-acetaminophen (NORCO) 5-325 mg per tablet 1 Tab (COMPLETED) 1 Tablet, Oral, ONCE, 1 dose, On 08/01/17 at 1400, Maximum adult dose of acetaminophen is 4000 mg from all sources in 24 hours. 1417 (Given - Provider: Brea Givens, ROLF) insulin aspart U-100 (NovoLOG) injection 1-10 Units 1-10 Units, Subcutaneous, 4 TIMES DAILY WITH MEALS, First dose on 08/01/17 at 1800, Until Discontinued, Medium dose algorithm: FSBS? Additional [...] least 3 hours. Waste Sort Code = BK 1849 (Not Given - Provider: Sandra Rose RN - Reason: Order parameters not met)2100 (Not Given - Provider: Ange Cody RN - Reason: Order parameters not met) 0800 (Not Given - Provider: Anaya Rome RN - Reason: Order parameters not met)1200 (Not Given - Provider: Anaya Rome RN - Reason: Patient/family declined - Comment: Patient already finished eating when nurse went in to take sugar)1800 (Hold - Provider: Anaya Rome RN - Reason: Order parameters not met)2100 (Not Given - Provider: Fior Guo RN - Reason: Order parameters not met) 0800 (Not Given - Provider: Cece Nice RN - Reason: Contraindicated)1305 (Given - Provider: Cece Nice RN) insulin glargine (LANTUS) injection 24 Units 24 Units, Subcutaneous, EVERY EVENING (INSULIN), First dose on 08/01/17 at 1900, Until Discontinued, Do not mix with other insulins Waste Sort Code = [facility] 2121 (Given - Provider: Ange Cody, ROLF) 2030 (Given - Provider: Fior Guo RN) isosorbide mononitrate (IMDUR) CR tablet 60 mg 60 mg, Oral, DAILY, First dose on Wed08/02/17 at 0900, Until Discontinued 08 (Given - Provider: Anaya Rome RN) 09 (Given - Provider: Cece Nice, ROLF) lamoTRIgine (LaMICtal) tablet 25 mg 25 mg, Oral, 2 TIMES DAILY, First dose on 08/01/17 at 2100, Until Discontinued 2017 (Given - Provider: Ange Cody, ROLF) 0845 (Given - Provider: Anaya Rome RN)2032 (Given - Provider: Fior Guo RN) 0951 (Given - Provider: Ceec Nice, ROLF) lisinopril (PRINIVIL;ZESTril) tablet 20 mg (CANCELED) 20 mg, Oral, DAILY, First dose on Wed08/02/17 at 0900, Until Discontinued, +++ACEI Medication+++ 0844 (Given - Provider: Anaya Rome RN) loperamide (IMODIUM) capsule 2 mg 2 mg, Oral, 2 TIMES DAILY, First dose on 08/01/17 at 2100, Until Discontinued, After each loose stool - Max 16 mg (8 caps) per 24 hours. 2019 (Given - Provider: Ange Cody RN) 0845 (Given - Provider: Anaya Rome RN)2032 (Given - Provider: Fior Guo, RN) 0950 (Given - Provider: Cece Nice, ROLF) metoprolol (LOPRESSOR) tablet 25 mg 25 mg, Oral, 2 TIMES DAILY, First dose on 08/01/17 at 2100, Until Discontinued 2017 (Given - Provider: Ange Cody RN) 0842 (Given - Provider: Anaya Rome RN)2032 (Given - Provider: Fior Guo RN) 0951 (Given - Provider: Cece Nice, ROLF) miconazole (MICATIN) 2 % powder(Linked Group 1) Topical, 2 TIMES DAILY, 84 doses, First dose on 08/01/17 at 2100, Last dose on 09/12/17 at 0900, Application site: groin excoriation 2018 (Given - Provider: Ange Cody RN) 0842 (Given - Provider: Anaya Rome RN)2032 (Given - Provider: Fior Guo RN) 0959 (Given - Provider: Cece Nice, ROLF) morphine injection 4 mg (COMPLETED) 4 mg, Intravenous, ONCE, 1 dose, On 08/01/17 at 1530 1558 (Given - Provider: Brea Givens, ROLF) nitroGLYCERIN (NITROGLYN) 2 % ointment 0.5 Inch (COMPLETED) 0.5 Inch, Topical, ONCE, 1 dose, On 08/01/17 at 1530, Wipe off old dose, apply to chest wall 1600 (Patch Applied - Provider: Brea Givens, ROLF) nitroGLYCERIN (NITROGLYN) 2 % ointment 0.5 Inch 0.5 Inch, Topical, EVERY 6 HOURS SCHEDULED (4 times per day), First dose on 08/01/17 at 2300, Until Discontinued, Wipe off old dose, apply to chest wall 0004 (Not Given - Provider: Ange Cody RN - Reason: Contraindicated)0600 (Not Given - Provider: Ange Cody RN - Reason: Contraindicated)1200 (Hold - Provider: Anaya Rome RN - Reason: Patient/family declined)1800 (Hold - Provider: Anaya Rome RN - Reason: Patient/family declined) 0000 (Not Given - Provider: Fior Guo RN - Reason: Patient/family declined)0600 (Hold - Provider: Fior Guo RN - Reason: Patient/family declined)1200 (Not Given - Provider: Cece Nice RN - Reason: Patient/family declined) nitroGLYCERIN (NITROSTAT) SL tablet 0.4 mg (COMPLETED) 0.4 mg, Sublingual, ONCE, 1 dose, On 08/01/17 at 1400, 0.4 mg = 1 Tab sublingual q5 min x 3 for CP, then notify MD if unrelieved - hold if SBP less than 90. Administer for angina/chest pain prior to administration of analgesics for angina. 1443 (Given - Provider: Brea Givens, RN) ondansetron (ZOFRAN) injection 4 mg (COMPLETED) 4 mg, Intravenous, ONCE, 1 dose, On 08/01/17 at 1530 1556 (Given - Provider: Brea Givens, RN) pantoprazole (PROTONIX) tablet 40 mg 40 mg, Oral, DAILY, First dose on Wed08/02/17 at 0900, Until Discontinued, Do not crush or chew 08 (Given - Provider: Anaya Rome RN) 0953 (Given - Provider: Cece Nice, ROLF) ranolazine (RANEXA) SR tablet 1,000 mg 1,000 mg, Oral, EVERY 12 HOURS SCHEDULED (2 times per day), First dose on Wed08/01/17 at 2100, Until Discontinued 2017 (Given - Provider: Ange Cody RN) 0844 (Given - Provider: Anaya Rome RN)2032 (Given - Provider: Fior Guo RN) 0953 (Given - Provider: Cece Nice, ROLF) sertraline (ZOLOFT) tablet 200 mg 200 mg, Oral, DAILY, First dose on Wed08/02/17 at 0900, Until Discontinued 08 (Given - Provider: Anaya Rome RN) 0953 (Given - Provider: Cece Nice, ROLF) sodium chloride 0.9 % 500 mL IV bolus (COMPLETED) Intravenous, ONCE, 1 dose, On 08/02/17 at 0030, at 967.7 mL/hr 0033 (IV Started - Provider: Ange Cody, RN)0104 (Stopped - Provider: Ange Cody, RN) traZODone (DESYREL) tablet 150 mg 150 mg, Oral, NIGHTLY, First dose on Wed08/01/17 at 2100, Until Discontinued 2017 (Given - Provider: Ange Cody, RN) 2032 (Given - Provider: Fior Guo, RN) PRN Medication Order 08/01/2017 08/02/2017 08/03/2017 acetaminophen (TYLENOL) suppository 650 mg(Linked Group 2) 650 mg, Rectal, EVERY 4 HOURS PRN, Starting on Wed08/01/17 at 1729, Until Wed08/03/17 at 2115, Fever, Headaches, Maximum adult dose of acetaminophen is 4000 mg from all sources in 24 hours. acetaminophen (TYLENOL) tablet 650 mg(Linked Group 2) 650 mg, Oral, EVERY 4 HOURS PRN, Starting on Wed08/01/17 at 1729, Until Wed08/03/17 at 2115, Fever, Headaches, Maximum adult dose of acetaminophen is 4000 mg from all sources in 24 hours. dextrose 50 % solution 25 mL 25 mL, Intravenous, PRN, Starting on 08/01/17 at 1617, Until Wed08/03/17 at 2115, Low blood sugar, If FSBS less than 70 mg/dl and patient cannot take orally, Check FSBS every 30 minutes and repeat 25 mL of D50 IV push and notify physician if FSBS less than 70 mg/dL VESICANT glucagon (human recombinant) (GLUCAGEN) injection 1 mg 1 mg, Intramuscular, PRN, Starting on Wed08/01/17 at 1617, Until Wed08/03/17 at 2115, Low blood sugar, If FSBS less than 70 mg/dl, patient cannot take orally and without IV access, If patient is without IV access, give Glucagon 1 mg Intramuscularly, insert IV and call physician. hydrOXYzine (VISTARIL) capsule 25 mg (COMPLETED) 25 mg, Oral, EVERY 4 HOURS PRN, 2 doses, Starting on 08/02/17 at 2228, Until Wed08/03/17 at 0308, Anxiety 2233 (Given - Provider: Fior Guo RN) 0308 (Given - Provider: Fior Guo RN) miconazole (MICATIN) 2 % powder(Linked Group 1) Topical, PRN, Starting on Wed08/01/17 at 1843, Until Wed08/03/17 at 2115, Wound Care, Application site: groin excoriation morphine injection 2 mg(Linked Group 3) 2 mg, Intravenous, EVERY 4 HOURS PRN, Starting on Wed08/01/17 at 1729, Until Wed08/03/17 at 2114, Pain, Pain Unrelieved by Oral Opioid Therapy, More Severe Pain, Begin with lowest dose unless otherwise directed. Reassess pain in 15 minutes. If pain unrelieved, remainder of dose may be given to patient. morphine injection 4 mg(Linked Group 3) 4 mg, Intravenous, EVERY 4 HOURS PRN, Starting on Wed08/01/17 at 1729, Until Wed08/03/17 at 2114, Pain, Pain Unrelieved by Oral Opioid Therapy, More Severe Pain, Begin with lowest dose unless otherwise directed. Reassess pain in 15 minutes. If pain unrelieved, remainder of dose may be given to patient. nitroGLYCERIN (NITROSTAT) SL tablet 0.4 mg 0.4 mg, Sublingual, EVERY 5 MIN PRN, Starting on Wed08/01/17 at 1615, Until Wed08/03/17 at 2114, Chest pain, 0.4 mg = 1 Tab sublingual q5 min x 3 for CP, then notify MD if unrelieved - hold if SBP less than 90. Administer for angina/chest pain prior to administration of analgesics for angina. ondansetron (ZOFRAN) injection 4 mg(Linked Group 4) 4 mg, Intravenous, EVERY 6 HOURS PRN, Starting on Wed08/01/17 at 1729, Until Wed08/03/17 at 2115, Nausea ondansetron (ZOFRAN) tablet 4 mg(Linked Group 4) 4 mg, Oral, EVERY 6 HOURS PRN, Starting on Wed08/01/17 at 1729, Until Wed08/03/17 at 5, Nausea Linked Groups Order Group 1: miconazole (MICATIN) 2 % powderJump to med Topical, 2 TIMES DAILY, 84 doses, First dose on Wed08/01/17 at 2100, Last dose on Wed09/12/17 at 0900, Application site: groin excoriation And miconazole (MICATIN) 2 % powderJump to med Topical, PRN, Starting on Wed08/01/17 at 1843, Until Wed08/03/17 at 211, Wound Care, Application site: groin excoriation Group 2: acetaminophen (TYLENOL) tablet 650 mgJump to med 650 mg, Oral, EVERY 4 HOURS PRN, Starting on Wed08/01/17 at 1729, Until Wed08/03/17 at 2114, Fever, Headaches, Maximum adult dose of acetaminophen is 4000 mg from all sources in 24 hours. Or acetaminophen (TYLENOL) suppository 650 mgJump to med 650 mg, Rectal, EVERY 4 HOURS PRN, Starting on Wed08/01/17 at 1729, Until Wed08/03/17 at 2114, Fever, Headaches, Maximum adult dose of acetaminophen is 4000 mg from all sources in 24 hours. Group 3: morphine injection 2 mgJump to med 2 mg, Intravenous, EVERY 4 HOURS PRN, Starting on 08/01/17 at 1729, Until Wed08/03/17 at 2114, Pain, Pain Unrelieved by Oral Opioid Therapy, More Severe Pain, Begin with lowest dose unless otherwise directed. Reassess pain in 15 minutes. If pain unrelieved, remainder of dose may be given to patient. Or morphine injection 4 mgJump to med 4 mg, Intravenous, EVERY 4 HOURS PRN, Starting on 08/01/17 at 1729, Until Wed08/03/17 at 2114, Pain, Pain Unrelieved by Oral Opioid Therapy, More Severe Pain, Begin with lowest dose unless otherwise directed. Reassess pain in 15 minutes. If pain unrelieved, remainder of dose may be given to patient. Group 4: ondansetron (ZOFRAN) tablet 4 mgJump to med 4 mg, Oral, EVERY 6 HOURS PRN, Starting on Wed08/01/17 at 1729, Until Wed08/03/17 at 2115, Nausea Or ondansetron (ZOFRAN) injection 4 mgJump to med 4 mg, Intravenous, EVERY 6 HOURS PRN, Starting on 08/01/17 at 1729, Until Tu08/03/17 at 2115, Nausea documented in this encounter Orders Medications Ordered That Gaurav ht Not Have Been Administered Count Last Ordered Date First Ordered Date acetaminophen (TYLENOL) suppository 650 mg 1 08/01/2017 acetaminophen (TYLENOL) tablet 650 mg 2 aspirin tablet 325 mg 1 08/01/2017 dextrose 50 % solution 25 mL 1 08/01/2017 glucagon (human recombinant) (GLUCAGEN) injection 1 mg 1 08/01/2017 guar gum (BENEFIBER) packet 1 Each 1 2017 inulin Chew 1 08/01/2017 metFORMIN XR (GLUCOPHAGE-XR) tablet 500 mg 1 08/01/2017 metoprolol (LOPRESSOR) tablet 50 mg 1 08/01 miconazole (MICATIN) 2 % powder 1 8 morphine injection 2 mg 1 08/01/2017 morphine injection 4 mg 1 08/01/2017 nitroGLYCERIN (NITROGLYN) 2 % ointment 0.5 Inch 1 08/01/2017 nitroGLYCERIN (NITROSTAT) SL tablet 0.4 mg 1 08/01/2017 ondansetron (ZOFRAN) injection 4 mg 1 08/01 ondansetron (ZOFRAN) tablet 4 mg 1 08/02/19 18 Nursing Count Last Ordered Date First Orde red Date ADMISSION 1 08/01/2017 ED ENTER ADMISSION ORDER 1 08/01/2017 Consult Count Last Ordered Date First Orde red Date IP CONSULT TO CARDIOLOGY 1 08/01/2017 Transfer Count Last Ordered Date First Orde red Date BED REQUEST 1 08/01/2017 documented in this encounter Additional Health Concerns Assessment Noted Time A fall risk assessment has been complete d for the patient 04/21/2017 10:52 AM EST documented as of this encounter Care Teams French Weaver Relationship Specialty Start Date End Date Sharee Segovia APRN [address] [place] [id number] PCP - General Nurse Practitioner-Family 09/21/16 documented as of this encounter
--- OUTSIDE RECORDS SUMMARY | 2024-02-16 14:54 | XMS_ITS | Encounter Summary ---
Author Organization [place] Address [facility] [place] [address] Care Team Providers Care Regional Manager Name Role Phone Sharee Segovia APRN Primary Care Provider [phone] Katheryn Allen RN Unavailable Unavailable Khalida Hunter CARPET SEWER, COS Unavailable Unavai Charity Newell RN Unavailable Unavail able Isaura Pickens RN DELIVERY Unavailable Unavail able Encounter Details Date Type Department Care Team (Late st Contact Info) Description 07/29/2017 Lab Requisition [facility] [place] [id number] [facility] Encounter for general adult medical examination without abnormal findings Social History Tobacco Use Types Packs/Day Years [...] on file documented as of this encounter Plan of Treatment Not on file documented as of this encounter Goals Goal Patient Goal Type Associated Problems Recent Progress Patient-Stated? Author Blood Pressure < 140/90 Blood Pressure 124/52(2018 4:00 PM EDT) No Silva Mathew RMA BMI (Calculated) < 30 General 35.6(10/06/19 19 4:56 PM EDT) No Silva Mathew THEO Maintain a healthy diet, exercise regularly and maintain an ideal body weight General No Quincy Silva Colby ROSIRonaldo HEMOGLOBIN A1C < 7.0 Result Component 6.6( 9 9:49 AM EST) No Shana Mathewly THEO Colby documented as of this encounter Procedures Procedure Name Priority Date/Time Associated Diagnosis Comments CBC Today 07/29/2017 5:50 AM EDT Encounter for general adult medical examination without abnormal findings BASIC METABOLIC PANEL Today 07/29/2017 5:50 AM EDT Encounter for general adult medical examination without abnormal findings documented in this encounter Results * (ABNORMAL) BASIC METABOLIC PANEL (07/29/2017 5:50 AM EDT) Sodium 144 136 - 145 mmol/L 07/29/2017 10:50 AM EDT [facility] Potassium 4.1 3.5 - 5.0 mmol/L 07/29/2017 10:50 AM EDT [facility] Chloride 101 98 - 107 mmol/L 07/29/2017 10:50 AM EDT [facility] Total CO2 30(H) 22 - 29 mmol/L 07/29/2017 10:50 AM EDT [facility] Anion Gap 13 7 - 16 mmol/L 07/29/2017 10:50 AM EDT [facility] Calcium 9.3 8.8 - 10.2 mg/dL 07/29/2017 10:50 AM EDT [facility] Glucose Lvl 70(L) 82 - 100 mg/dL 07/29/2017 10:50 AM EDT [facility] BUN 18 8 - 23 mg/dL 07/29/2017 10:50 AM EDT [facility] Creatinine 1.33(H) 0.51 - 1.30 mg/dL 07/29/2017 10:50 AM EDT [facility] GFR Afr Am 48 mL/min/1.7 3 m2 07/29/2017 10:50 AM EDT [facility] GFR Non Afr Am 42 mL/min/1.7 3 m2 07/29/2017 10:50 AM EDT [facility] Comment: GFR Afr Am and GFR Non Afr Am calculated using CKD-EPI equation. ?? GFR Category ?GFR(mL/min/1.73 m??) ? Kidney Function G1 ?>=90 ?Normal or high G2 ?60-89 ? Mildly decreased G3a ? 45-59 ? Mildly to moderately decreased G3b ? 30-44 ? Moderately to severely decreased G4 ?15-29 ? Severely decreased G5 ?<15 ? Kidney Failure Blood VENOUS BLOOD / Unknown 07/29/2017 5:50 AM EDT 07/29/2017 9:08 AM EDT [facility] CHEMISTRY ORDERABLES Final Resu lt [facility] [address] [place] [address] * CBC (07/29/2017 5:50 AM EDT) Pathologist [facility] WBC 6.6 3.7 - 10.3 x10(3)/mcL 07/29/2017 9:34 AM EDT [facility] RBC 3.99 3.90 - 5.20 x10(6)/mcL 07/29/2017 9:34 AM EDT [facility] Hgb 11.5 11.2 - 15.7 g/dL 07/29/2017 9:34 AM EDT [facility] Hct 36.3 34.0 - 45.0 % 07/29/2017 9:34 AM EDT [facility] MCV 91.0 79.0 - 98.0 fL 07/29/2017 9:34 AM EDT [facility] MCH 28.8 26.0 - 32.0 pg 07/29/2017 9:34 AM EDT [facility] MCHC 31.7 30.7 - 35.5 g/dL 07/29/2017 9:34 AM EDT [facility] RDW 13.2 <=14.9 % 07/29/2017 9:34 AM EDT [facility] Platelet 206 155 - 369 x10(3)/mcL 07/29/2017 9:34 AM EDT [facility] MPV 11.7 8.8 - 12.5 fL 07/29/2017 9:34 AM EDT [facility] Blood VENOUS BLOOD / Unknown 07/29/2017 5:50 AM EDT 07/29/2017 9:08 AM EDT [facility] HEMATOLOGY ORDERABLES Final Res ult [facility] [address] [place] [id number] documented in this encounter Visit Diagnoses Diagnosis Encounter for general adult medical examination without abnormal findings Routine general medical examination at a health care facility documented in this encounter Additional Health Concerns Assessment Noted Time A fall risk assessment has been complete d for the patient 04/21/2017 10:52 AM EST documented as of this encounter Care Teams Regional Manager Relationship Specialty Start Date End Date Sharee Segovia APRN [address] [place] [phone] PCP - General Nurse Practitioner-Family 09/21/16 Katheryn Allen, RN Health Advocate Registered Nurse 08/04/17 09/14/17 Khalida Hunter LSW, COS Curriculum Consultant 08/09/17 08/29/17 Charity Last RN Certification And Selection Specialist Registered Nurse 07/21/18 07/21/18 Isaura Pickens RN DELIVERY Curriculum Consultant 09/12/18 10/19/18 documented as of this encounter
--- OUTSIDE RECORDS SUMMARY | 2024-02-16 14:54 | XMS_ITS | Encounter Summary ---
Author Organization [place] [address] Care Team Providers Care Fast Food Supervisor Name Role Phone SegoviaSharee nichols NIKO Primary Care Provider [phone] Reason for Referral * Consultation (Routine) - Closed Specialty Diagnoses / Procedures Referred By Arsh patel Referred To Contact Cardiology Ben Anderson APRN [facility] [address] [place] [address] Phone: tel: fax: Referral ID Status Reason Start Date Expiration Date Visits Re quested Visits Authorized [id number] Closed 07/26/2017 07/26/2018 1 1 Reason for Visit * Reason Comments Chest Pain Pt to ER via [facility] complaints of SVT per EMS. Pt at this time HR is 115. PT states chest pain and jaw pain woke me up this morning @ 645. CPTA: lisa * Auth/Cert/Inpt Specialty Diagnoses / Procedures Referred By Arsh patel Referred To Contact Critical Care Medicine Diagnoses NSTEMI (non-ST elevated myocardial infarction) (HCC) NSTEMI, initial episode of care (HCC) Chest pain, unspecified type Chest pain, unspecified type [R07.9] Procedures CORONARY ANGIOGRAM / CARDIAC CATHETERIZATION [[id number]] EDG 6D [facility] [place] [address] Phone: tel: fax: Referral ID Status Reason Start Date Expiration Date Visits Re quested Visits Authorized [id number] 07/25/2017 07/25/2018 1 1 Encounter Details Date Type Department Care Team (Latest Contact Info) Description 07/24/2017 8:21 AM EDT - 07/27/2017 6:06 PM EDT Hospital Encounter EDG 3C PULMONARY [address] [facility] [place] [address] Ela Zayas MD [address] [address] Mayo Omalley DO [address] [address] NSTEMI (non-ST elevated myocardial infarction) (HCC) (Primary Dx); Chest pain; Chest pain, unspecified type; History of CVA (cerebrovascular accident) Discharge Disposition: Rehab Facility Social History Tobacco Use Types Packs/Day [...] Sign Reading Time Taken Comments Blood Pressure 109/59 07/27/2017 12:27 PM EDT Pulse 48 07/27/2017 12:27 PM EDT Temperature 36.2 ??C (97.2 ??F) 07/27/2017 1 2:27 PM EDT Respiratory Rate 16 07/27/2017 12:2 7 PM EDT Oxygen Saturation 95% 07/27/2017 12: 27 PM EDT Inhaled Oxygen Concentration - - Weight 104.4 kg (230 lb 1.6 oz) 07/27/2017 5:12 AM EDT Height 172.7 cm (5' 8 ) 07/24/2017 2:34 PM EDT Body Mass Index 34.99 07/24/2017 2:34 PM EDT documented in this encounter Discharge Summaries * Venkat Sanchez MD - 07/27/2017 3:57 PM EDT [facility] Patient Name: Faby Palm : 1950 Admit Date: 07/24/2017 Discharge Date: 07/27/2017 Admitting Physician: Mayo Omalley DO Discharging Physician: Venkat Sanchez MD Reason for Hospitalization: Active Hospital Problems Chest pain Intellectual disability *Acute chest pain Schizoaffective disorder, depressive type (HCC) 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 Pt presented to the ED 2 days ago with paroxysmal atrial flutter and atypical chest pain and prescribed norvasc.Her last echo was in 04/2017 and it revealed Left Ventricular ejection fraction is estimated at 60-65%. Last ischemic eval 2016. Trop elevated in ED cards consulted. Coronary artery disease with non-ST elevation myocardial infarction: Cardiology consultation is greatly appreciated. Results of left heart catheterization from July 24, 2017 reviewed. She does have some significant disease but no clearly flow limiting lesions. Continue medical therapy under the supervision of cardiology including Plavix and aspirin, Imdur, Ranexa, and beta-blockade. ?? Bradycardia: As above cardiology following. She is on Lopressor. ?? Atrial flutter: She is status post ablation in 2016. She remains in a sinus rhythm or sinus bradycardia on telemetry ?? Hypertension: Continue current regimen, avoid significant bradycardia and hypotension ?? Hyperlipidemia: Continue with high-dose statin ?? Diabetes Mellitus Type 2: Educate patient on the disease through out the admission, including the importance of healthy food choices and weight reduction. Monitor FSBS and cover with a sliding scale of NovoLog insulin. ?? 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 She is overall weak, and will benefit from physical therapy. ?? Dispo: She is being discharged to [facility] today for continuation of physical therapy and occupational therapy. Labs and imaging follow-up needed: None. Consultants: Treatment Team: Consulting Physician: Mike Winchester MD Discharge Exam: Vitals: 07/27/17 1227 BP: 109/59 Pulse: (!) 48 Resp: 16 Temp: 97.2 ??F (36.2 ??C) SpO2: 95% See Progress Note Correct Full Discharge Med List: Medication List START taking these medications clopidogrel 75 mg Tab Dose: 75 mg Qty: 90 Each Refills: 1 Commonly known as: PLAVIX 75 mg, Oral, DAILY Notes to patient: Antiplatelet to prevent blood clots CHANGE how you take these medications * metoprolol 50 mg Tab Qty: 60 Tab Refills: 2 Commonly known as: LOPRESSOR TAKE 1 TABLET BY MOUTH 2 TIMES DAILY What changed: Another medication with the same name was added. Make sure you understand how and when to take each. * metoprolol 25 mg Tab Dose: 25 mg Qty: 180 Tab Refills: 3 Commonly known as: LOPRESSOR 25 mg, Oral, 2 TIMES DAILY What changed: You were already taking a medication with the same name, and this prescription was added. Make sure you understand how and when to take each. Notes to patient: Beta-laquita to reduce heart rate, blood pressure and work of the heart traZODone 300 mg Tab Dose: 300 mg Qty: 30 Tab Refills: 0 Commonly known as: DESYREL 300 mg, Oral, NIGHTLY What changed: how much to take * This list [...] Tab Refills: 0 81 mg, Oral, DAILY Notes to patient: Antiplatelet to prevent blood clots atorvastatin 20 mg Tab Qty: 30 Tab Refills: 1 Commonly known as: LIPITOR TAKE ONE TABLET BY MOUTH NIGHTLY Notes to patient: Statin for cholesterol cloNIDine HCl 0.1 mg Tab Dose: 0.1 mg Qty: 60 Tab Refills: 2 Commonly known as: CATAPRES 0.1 mg, Oral, 2 TIMES DAILY, Hold for SBP <90 ferrous sulfate 325 mg (65 mg iron) [...] mg Refills: 0 Commonly known as: GLUCOTROL insulin glargine 100 unit/mL Soln Dose: 28 Units Qty: 10 mL Refills: 12 Commonly known as: LANTUS 28 Units, Subcutaneous, EVERY EVENING (INSULIN) isosorbide mononitrate 60 mg Tb24 Qty: 30 Tab Refills: 1 Commonly known as: IMDUR TAKE ONE TABLET BY MOUTH ONCE DAILY Notes to patient: Nitrate for chest pain lamoTRIgine 25 mg Tab Dose: 25 mg Qty: 60 Tab Refills: 0 Commonly known as: LaMICtal 25 mg, Oral, 2 TIMES DAILY lisinopril 20 mg Tab Dose: 20 mg Refills: 0 Commonly known as: PRINIVIL;ZESTril Notes to patient: ARABELLA inhibitor loperamide 2 mg Cap Dose: 2 mg Refills: 0 Commonly known as: IMODIUM metFORMIN XR 500 mg Tb24 Dose: 500 mg Refills: 0 Commonly known as: GLUCOPHAGE-XR nitroGLYCERIN 0.4 mg Subl Dose: 0.4 mg Qty: 20 Tab Refills: 2 Commonly known as: NITROSTAT 0.4 mg, Sublingual, EVERY 5 MIN PRN nystatin Powd Refills: 0 Commonly known as: MYCOSTATIN pantoprazole 40 mg Tbec Qty: 30 Tab Refills: 6 Commonly known as: PROTONIX TAKE ONE TABLET BY MOUTH ONCE DAILY RANEXA 1,000 mg Tb12 Qty: 60 Tab Refills: 0 Generic drug: Ranolazine TAKE ONE TABLET BY MOUTH EVERY 12 HOURS sertraline 100 mg Tab Dose: 200 mg Refills: 0 Commonly known as: ZOLOFT valACYclovir 1 gram Tab Refills: 0 Commonly known as: VALTREX STOP taking these medications risperiDONE 0.5 mg Tab Commonly known as: RisperDAL Saccharomyces boulardii 250 mg Cap Commonly known as: FLORASTOR sucralfate 100 mg/mL Susp Commonly known as: CARAFATE Where to Get Your Medications These medications were sent to [id number] [place] [address] [address] -[phone] [address] [facility] [address] ?? clopidogrel 75 mg Tab ?? metoprolol 25 mg Tab Condition at Discharge: good Disposition: Rehab [facility] Follow-up: Sharee Segovia ARNP [address] [place] [address] In 3 days Bello Devries MD [address] [place] [address] [place] [address] Schedule an appointment as soon as possible for a visit in 2 weeks Time spent on this discharge summary is over 30 minutes today. Venkat Sanchez MD 07/27/2017 documented in this encounter Discharge Instructions * Attachments The following attachments cannot be sent through Care Everywhere. * HEART ATTACK (SYRIAC) documented in this encounter Medications at Time [...] Hold for SBP <90 60 Tab 2 07/20/2017 8 glipiZIDE (GLUCOTROL) 10 mg Oral Tablet [...] Last Filled Start Date End Date metoprolol (LOPRESSOR) 25 mg Oral Tablet Take 1 Tab by mouth 2 times daily. 180 Tab 3 07/26/2017 08/06/2017 clopidogrel (PLAVIX) 75 mg Oral Tablet Take 1 Tab by mouth daily. 90 Each 1 07/27/2017 07/28/2018 documented in this encounter Discharge Disposition Disposition Code Departure Means Destination Rehab Facility [facility] documented in this encounter Progress Notes * Annie Hampton APRN - 07/27/2017 4:56 PM EDT Heart & Vascular Progress Note PATIENT: Faby Palm She has been in the hospital for LOS: 3 days Cardiology following for: chest pain, NSTEMI Subjective: Patient feeling okay today. She has no chest pain or SOB. No obvious signs of bleeding. Is hoping to DC today Objective: Vitals: 07/27/17 1227 BP: 109/59 Pulse: (!) 48 Resp: 16 Temp: 97.2 ??F (36.2 ??C) SpO2: 95% Telemetry: SR-SB, HR 50-60 Exam: Pt in no distress. Lymph/Neck supple, no enlarged nodes or masses CVS - S1, S2 RRR, no edema RS - No rales, no rhonchi GI/Abd - soft, NT, +BS Neuro- Alert and oriented Psych- Mood and affect appropriate Skin warm, dry, no rashes Medication: ??? amLODIPine 2.5 mg Oral Daily ??? ARIPiprazole 30 mg Oral Daily ??? aspirin 81 mg Oral Daily ??? atorvastatin 20 mg Oral Nightly ??? cloNIDine HCl 0.1 mg Oral BID ??? clopidogrel 75 mg Oral Daily ??? fUROsemide 20 mg Oral Daily ??? glipiZIDE 10 mg Oral BID WM ??? insulin aspart U-100 1-10 Units Subcutaneous QID WM ??? insulin glargine 28 Units Subcutaneous QPM (Insulin) ??? isosorbide mononitrate 60 mg Oral Daily ??? lamoTRIgine 25 mg Oral BID ??? lisinopril 20 mg Oral Daily ??? metoprolol 25 mg Oral BID ??? miconazole Topical BID ??? pantoprazole 40 mg Oral Daily ??? ranolazine 1,000 mg Oral 2 times per day ??? sertraline 200 mg Oral Daily ??? sodium chloride 0.9% Intravenous 3 times per day ??? traZODone 150 mg Oral Nightly acetaminophen, atropine, dextrose, dextrose, EPINEPHrine injection, glucagon (human recombinant), sodium chloride 0.9% Labs & Studies: All pertinent labs & radiologic studies for the past 24 hours have been reviewed Assessment & Plan: NSTEMI [facility] 07-24-17 ?? Ost RCA lesion 60% stenosed. ?? Mid RCA lesion 40% stenosed. ?? Mid LAD lesion 50% stenosed. ??Significant but not clearly flow limiting dz Ostial RCA of 50-70% - difficult to image due to angulation with FFR of 0.92 Mid LAD appearing 50% with FFR of 0.82 Normal LVEDP Cr still elevated but stable for past 2 days. --> DAPT w Plavix/ASA CAD - Card cath (10/2016): 50-60% mid LAD, 50% ost RCA, pEF - managed medically - Nonischemic stress (04/2017) - On Imdur, Ranexa prior to admit ? Bradycardia HR 50's No HB, pauses -no symptoms On Lopressor 50 mg BID ?? Hx Atrial Flutter - S/p AF ablation (2015) -remains SR-SB on tele No AC ?? Hypertension -controlled on BB -off ARABELLA with elevated Cr ?? Dyslipidemia -continue statin ?? DM -per primary care ?? H/o CVA - Residual left hemiparesis -pt feels more weak all over today and trouble just trying to get up in bed -ASA, statin Plan: Okay to DC to rehab. F/u with cardiology in 2 weeks. Further input from Dr Jaycob Hampton APRN Cosigned by Bello Devries MD at 08/10/2017 8:55 AM EDT * Sarah Whatley, STAFF SCIENTIST - 07/27/2017 4:52 PM EDT 07/27/17 2611 Final Note Actual Discharge Plan 07/27 Final Discharge Note: [facility] and have gotten precert. Pt. has been discharged and [facility] will transport pt[facility] to [facility] today. They will call nurses station with time. Called [facility] and left a VM to notify them. Notified pt's. nurse, Manju and Kassie @ [facility] [place]. will sign off. Discharge to Rehab Transportation at discharge [facility] cab PASAR Completed Not Applicable Patient/Family Aware of Plan Yes MD Aware of Plan Yes RN Notified of Plan Yes Patient's goals for recovery [place]mer in mobility * Manju Alvarez RN - 07/27/2017 4:41 PM EDT Pt to be discharged to [facility]. VSS. Report given to Carmen. AVS placed in folder and also reviewed withpt. Pt to be transported via cab. Call light within reach. * Bello Devries MD - 07/27/2017 4:03 PM EDT No chest pain, shortness of breath, palpitations. Exam: Vitals: 07/27/17 1227 BP: 109/59 Pulse: (!) 48 Resp: 16 Temp: 97.2 ??F (36.2 ??C) SpO2: 95% No intake or output data in the 24 hours ending 07/27/17 1604 Skin color good Neck No JVD Chest CTA Cardiac RRR Abd soft NT Edema absent Medications ??? amLODIPine 2.5 mg Oral Daily ??? ARIPiprazole 30 mg Oral Daily ??? aspirin 81 mg Oral Daily ??? atorvastatin 20 mg Oral Nightly ??? cloNIDine HCl 0.1 mg Oral BID ??? clopidogrel 75 mg Oral Daily ??? fUROsemide 20 mg Oral Daily ??? glipiZIDE 10 mg Oral BID WM ??? insulin aspart U-100 1-10 Units Subcutaneous QID WM ??? insulin glargine 28 Units Subcutaneous QPM (Insulin) ??? isosorbide mononitrate 60 mg Oral Daily ??? lamoTRIgine 25 mg Oral BID ??? lisinopril 20 mg Oral Daily ??? metoprolol 25 mg Oral BID ??? miconazole Topical BID ??? pantoprazole 40 mg Oral Daily ??? ranolazine 1,000 mg Oral 2 times per day ??? sertraline 200 mg Oral Daily ??? sodium chloride 0.9% Intravenous 3 times per day ??? traZODone 150 mg Oral Nightly Labs LAB Lab Results Component Value Date WBC 6.1 07/27/2017 HGB 10.7 (L) 07/27/2017 HCT 34.4 07/27/2017 PLT 182 07/27/2017 Lab Results Component Value Date CREATININE 1.59 (H) 07/27/2017 BUN 27 (H) 07/27/2017 NA 144 07/27/2017 K 4.1 07/27/2017 CL 104 07/27/2017 CO2 30 (H) 07/27/2017 Lab Results Component Value Date CHOLESTEROL 117 05/02/2017 TRIG 203 (H) 05/02/2017 HDL 49 05/02/2017 LDLCALC 27 05/02/2017 Lab Results Component Value Date ALT 8 07/16/2017 AST 11 07/16/2017 Lab Results Component Value Date TSH 2.900 05/03/2017 Lab Results Component Value Date INR 1.12 (H) 07/16/2017 No results found for: CKTOTAL, CKMB, CKMBINDEX, TROPONINI Active Hospital Problems Diagnosis ??? *Acute chest pain ??? Chest pain ??? Intellectual disability ??? Schizoaffective disorder, depressive type (HCC) ??? 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 (HCC) ??? 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 3 chronic kidney disease, with long-term current use of insulin (HCC) ??? S/P ablation of atrial flutter ??? Chronic diastolic CHF (congestive heart failure) ([facility]) ??? 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 History of CVA (cerebrovascular accident) Plan Conservative management post cath Ok for DC when others ready. Bello Devries MD * Manju Alvarez RN - 07/27/2017 2:47 PM EDT Pt vitals stable, pt alert and oriented. Pt able to turn self independently. Resting in bed. Ambulating as a standby assist with walker. Denies pain this shift but had some anxiety. Medicated per MARwith effective results. Bed alarm on, call light within reach, will continue to monitor. * Sarah Whatley BSW - 07/27/2017 1:50 PM EDT 07/27/17 1341 Discharge Planning Evaluation Actual Discharge Plan 07/27 SW Update: Received pt. from [facility]. Pt. from [facility]. Per P.T. referral, pt. needs rehab/SNF. Met with pt. to discuss options. Pt. would like to go to [facility]. Referra sent and received a call back from Kassie @ [facility] [place]. They can accept pt. pending precert. Precert started. SW will continue to follow and assist with disposition. Discussed discharge plans with Patient * Venkat Sanchez MD - 07/27/2017 1:01 PM EDT Images from the original note were not included. PROGRESS NOTE Assessment/Plan: Coronary artery disease with non-ST elevation myocardial infarction: Cardiology consultation is greatly appreciated. Results of left heart catheterization from July 24, 2017 reviewed. She does have some significant disease but no clearly flow limiting lesions. Continue medical therapy under the supervision of cardiology including Plavix and aspirin, Imdur, Ranexa, and beta-blockade. Bradycardia: As above cardiology following. She is on Lopressor. Atrial flutter: She is status post ablation in 2016. She remains in a sinus rhythm or sinus bradycardia on telemetry Hypertension: Continue current regimen, avoid significant bradycardia and hypotension Hyperlipidemia: Continue with high-dose statin Diabetes Mellitus Type 2: Educate patient on the disease through out the admission, including the importance of healthy food choices and weight reduction. Monitor FSBS and cover with a sliding scale of NovoLog insulin. 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 She is overall weak, and will benefit from physical therapy. Dispo: Home or short-term rehab per physical therapy evaluation and recommendations. Active Hospital Problems Diagnosis ??? *Acute chest pain ??? Chest pain ??? Intellectual disability ??? Schizoaffective disorder, depressive type (HCC) ??? 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 (HCC) ??? 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 3 chronic kidney disease, with long-term current use of insulin (HCC) ??? S/P ablation of atrial flutter ??? Chronic diastolic CHF (congestive heart failure) (HCC) ??? 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 History of CVA (cerebrovascular accident) Subjective: Patient is very weak in general. She wants to shower. She is eating and drinking well. No chest pain. No shortness of breath. Review of systems is otherwise negative. Objective: BP 139/61 (BP Location: Right arm, Patient Position: Sitting) Pulse 59 Temp 99.5 ??F (37.5 ??C)(Oral) Resp 16 Ht 5' 8 (1.727 m) Wt 230 lb 1.6 oz (104.4 kg) SpO2 96% ? No BMI 34.99 kg/m?? I/O last 3 completed shifts: In: 720 [P.O.:720] Out: 150 [Urine:150] Weight: 230 lb 1.6 oz (104.4 kg) General appearance: Pleasant, Conversant, NAD, A&OX3, obese HEENT: ATNC, PERRLA, EOMI, no JVD, neck supple Cardiovascular: regular rate and rhythm, without murmurs, rubs, or gallops Lungs: respirations unlabored, CTA Bilaterally, No rales, rhonchi, wheeze, or stridor Abdomen: positive bowel sounds, soft, non-tender to palpation, no hepatosplenomegaly appreciated, non-distended, no guarding, no rebound Extremities: no cyanosis, clubbing or edema, no deformities Neuro: no focal neurological deficits, AAO x3, CN 2-12 grossly intact, moves all extremities spontaneously, sensation intact throughout, muscle strength 5/5 and symmetrical throughout, finger to noseintact bilaterally, no pronator drift Skin: warm,dry, no rash Mood: well adjusted, appropriate affect Labs: Laboratory data and diagnostic testing reviewed 07/27/17. Venkat Sanchez MD 07/27/2017 5:22 AM * Dane Sanchez RN - 07/26/2017 7:39 PM EDT Resumed care of patient from outgoing RN . Patient was admitted for NSTEMI. Patient is currently resting in bed with no needs at this time. Denies any pain, no shortness of breath, no nausea or vomiting. Denies dysuria nor hematuria. Alert and oriented. Breathing is even and non labored. Patient isin no acute distress. Plan of care has been explained to patient. Patient verbalized understanding and is in agreement. All safety checks are in place, bed in lowest position, wheels locked and call light within reach. We will continue to monitor throughout the night and intervene accordingly and notify MD as needed. * Manju Alvarez RN - 07/26/2017 6:45 PM EDT Pt arrived to floor. Orientation to floor provided for pt. VSS. Assessment complete. Pt comfortable. Call light within reach, will continue to monitor. * Cece Nice RN - 07/26/2017 4:57 PM EDT Report called to 3C. Transport placed for patient. * Cece Nice RN - 07/26/2017 3:35 PM EDT Message sent to Dr. Omalley about PT recommendations for short-term skilled PT; Rehab. Also asking if okay for transfer out of [facility]? RN will continue to monitor. Dr. Omalley responded okay for transfer. * Yael Venegas, PT - 07/26/2017 3:22 PM EDT 07/26/17 1514 PT Subjective Note Type Evaluation Patient Room/Unit [facility] PT Subjective Comments #1 Order: IP Consult to Physical Therapy per Dr. Omalley PT Subjective Comments #2 Clear for PT per nurse. Pt agreeable. States not good with getting up- states she feels weak and tired. Discharge Information Evaluation to serve as discharge summary if no further treatment provided before the facility discharge Admitting Diagnosis 67yo female admitted 07/24/17 with chest pain, NSTEMI. Pt presented to ED with recurrent chest pain. Troponins elevated. Cardiology consulted. Cardiac cath 07/25. Past Med Hx COPD, DDD, CHF, DM, HTN, stroke- left side affected, RLS, atrial flutter, schizoaffective disorder depressive type, [place], intellectual disability, ablation of dysrhythmic focus, ankle sx, left TKR, lung sx- partial removal, orthopedic sx Pain Screening PT/OT Patient Currently in Pain Denies Cognition Overall Cognitive Status WFL Arousal/Alertness Appropriate responses to stimuli Attention Span Appears intact Orientation Level Oriented X3;Pleasant and Cooperative Following Commands Follows one step commands without difficulty Home Living/Prior Function [facility] of Home [facility] Home Equipment 2 wheel walker Level of Assistance Ambulatory in home;Needs assistance with ADLs Lives With Assisted Living Additional Comments pt reports she gets around independently - usually uses rolling walker but doesnot use one when she is carrying things/tray from the kitchen to the dining room. Pt reports she receives assist for bathing and dressing, otherwise is independent. Pt reports she fell ~ 2 weeks ago. Observation Presentation Patient resting in bed Observation Customer Care Representative;Bed Alarm Vitals SPO2 94% on RA UE Assessment Additional Comments min general weakness RUE Additional Comments min general weakness LE Assessment LLE Assessment X LLE Additional Comments general weakness- grossly 4-/5 except hip flexion 2/5 RLE Assessment X RLE Additional Comments general weakness- grossly 4/5 Bed Mobility Supine to Sit Min assist ;With verbal cues;Head of bed slightly elevated Sit to Supine Min assist ;With verbal cues (assist for LEs) Transfers Sit to Stand Contact guard assist;Min assist ;With verbal cues Stand to Sit Contact guard assist;Min assist;With verbal cues Additional Comments cues for proper hand placement and safe technique; pt sat a little prematurely after gait- states her legs were feeling weak. Gait Gait Contact guard assist;With verbal cues Gait Distance (Feet) 100 Feet Assistive Device 2 Wheel walker Pattern Slow chhaya;Step to (left LE ER) Additional Comments cues for upright posture and walker proximity- tends to let walker get too far forward. Pt assisted to bathroom prior to gait in hallway. Min/CGA assist on/off toilet. Vitals SPO2 95% after gait AM PAC: How much help from another [...] indep, requires both UE support Education Education Role of Therapy;Safety with mobility;Cues for proper technique;Safe and proper technique with transfers;Safe and proper technique with gait pattern;Up with assistance only;To use call lightto request assistance with all mobility;Discharge planning Patient Safety Patient Safety Patient in bed with needs in reach;Bed alarm activated Assessment Assessment Decreased gait;Decreased functional mobility;Decreased balance;Decreased RightLower Extremity strength;Decreased Left Lower Extremity strength;Decreased activity tolerance Prognosis Good;With continued PT s/p acute discharge Rationale for Skilled Therapy Not safe with independent transfers;Not safe ambulating independently Goals Patient and/or Family Goal get up and down on my own PT GOALS (Yes/No) Yes Add Goals Pt Will Go Supine To Sit Modified independent Pt Will Go Sit to Supine Modified independent Pt will perform Sit to Stand Modified independent Pt Will Ambulate With 2 wheel walker;151-200 feet;With stand by assist Goal Formulation With patient Time for Goal Achievement 7 days Plan Treatment/Interventions Gait training;Bed mobility;Balance training;Functional transfer training;LEstrengthening/ROM;Increase activity tolerance PT Frequency 3-5x/week Recommendation PT Recommendation Short-term skilled PT;Rehab Time In / Time Out [id number] IP PT Evaluation Minutes 15 IP PT Treatment Minutes 14 * Sadnra Branch RD,LD - 07/26/2017 2:28 PM EDT Nutrition consult received for post AMI diet education. Pt visited, sleeping, did not wake. Heart Healthy handout left in pt's room. Will continue to follow for diet education. * Vincent Snow - 07/26/2017 2:28 PM EDT This junior bookkeeper attempted to complete initial visit with this patient during normal rounds in order to introduce pastoral care services, assess spiritual needs, and offer spiritual support. The patientwas not available at time of attempted visit due to being asleep and no visitors present. This junior bookkeeper left card and pastoral care brochure in order to let the patient know of attempted visit and availability of pastoral care services. Pastoral Care will continue to be available to this patient and family during hospital stay. Rev. Chaplain Efren ([id number]) 07/26/17 1400 Pastoral Care Encounter Visited With Asleep Date of visit 07/26/17 Visit Type Initial Mandaen Needs Pastoral care brochure Pastoral Care Plan/Intervention Plan/Intervention Continue to Follow * Yael Venegas, PT - 07/26/2017 12:48 PM EDT 07/26/17 1230 PT Subjective Note Type Evaluation Attempt Patient Room/Unit [facility]4 PT Subjective Comments #1 Order: IP Consult to Physical Therapy per Dr. Omalley Therapy delay reason Patient eating Admitting Diagnosis 67yo female admitted 07/24/17 with chest pain, NSTEMI. Pt presented to ED with recurrent chest pain. Troponins elevated. Cardiology consulted. Cardiac cath 07/25. 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 Chest Pain Pt to ER via squad with complaints of SVT per EMS. Pt at this time HR is 115. PT states chest painand jaw pain woke me up this morning @ 645. CPTA: lisa SUBJECTIVE: The patient has no CV complaints from over night . Pt weak and feels she is having trouble getting up in bed REVIEW OF SYSTEMS: NEGATIVE FOR: chest pain, dyspnea, palpitations, dizziness, syncope, edema POSITIVE FOR: See subjective. Review of systems is otherwise negative. MEDICATIONS: Scheduled Medications: ??? amLODIPine 2.5 mg Oral Daily ??? ARIPiprazole 30 mg Oral Daily ??? aspirin 81 mg Oral Daily ??? atorvastatin 20 mg Oral Nightly ??? cloNIDine HCl 0.1 mg Oral BID ??? clopidogrel 75 mg Oral Daily ??? fUROsemide 20 mg Oral Daily ??? glipiZIDE 10 mg Oral BID WM ??? insulin aspart U-100 1-10 Units Subcutaneous QID WM ??? insulin glargine 28 Units Subcutaneous QPM (Insulin) ??? isosorbide mononitrate 60 mg Oral Daily ??? lamoTRIgine 25 mg Oral BID ??? lisinopril 20 mg Oral Daily ??? metoprolol 50 mg Oral BID ??? miconazole Topical BID ??? pantoprazole 40 mg Oral Daily ??? pneumococcal vaccine 0.5 mL Intramuscular ONCE ??? ranolazine 1,000 mg Oral 2 times per day ??? sertraline 200 mg Oral Daily ??? sodium chloride 0.9% Intravenous 3 times per day ??? traZODone 150 mg Oral Nightly Continuous Infusions: PRN Medications: acetaminophen, atropine, dextrose, dextrose, EPINEPHrine injection, glucagon (human recombinant), LORazepam, oxyCODONE-acetaminophen, sodium chloride 0.9% PHYSICAL EXAMINATION: Vitals: 07/26/17 0800 BP: 112/58 Pulse: 59 Resp: 18 Temp: 98.6 ??F (37 ??C) SpO2: 92% Temp (24hrs), Av.4 ??F (36.9 ??C), Min:97.9 ??F (36.6 ??C), Max:98.7 ??F (37.1 ??C) Weight: 236 lb 9.6 oz (107.3 kg) Intake/Output Summary (Last 24 hours) at 07/26/17 1123 Last data filed at 07/26/17 0803 Gross per 24 hour Intake 1640 ml Output 400 ml Net 1240 ml Physical Exam: GEN: Alert, pleasant and oriented x3. In no acute distress. LUNGS: clear to auscultation. Chest wall nontender. HEART: RRR, no murmur, gallop, or rub. No jugular venous distension. ABD: soft, nontender, positive bowel sounds. EXT: no edema, +2 radial, +2 PT pulses Musculoskeletal: No cyanosis, discoloration, clubbing . NEURO: no obvious focal abnormalities SKIN: warm and dry. No new rashes Customer Care Representative: Vitals: Vitals: 07/26/17 0425 07/26/17 0426 07/26/17 0624 07/26/17 0800 BP: 122/61 112/58 BP Location: Right arm Patient Position: Semi Fowlers Semi Fowlers Pulse: 57 59 Resp: 16 18 Temp: 98.7 ??F (37.1 ??C) 98.6 ??F (37 ??C) TempSrc: Oral Oral SpO2: (!) 88% 91% 92% Weight: 236 lb 9.6 oz (107.3 kg) Height: Intake and Output: Intake/Output Summary (Last 24 hours) at 07/26/17 1123 Last data filed at 07/26/17 0803 Gross per 24 hour Intake 1640 ml Output 400 ml Net 1240 ml Weight: Wt Readings from Last 3 Encounters: 07/26/17 236 lb 9.6 oz (107.3 kg) 07/22/17 243 lb 6 oz (110.4 kg) 07/20/17 241 lb 3.2 oz (109.4 kg) LABORATORY AND STUDIES: Lab Results Component Value Date WBC 6.3 07/26/2017 HGB 10.6 (L) 07/26/2017 HCT 33.7 (L) 07/26/2017 MCV 92.1 07/26/2017 PLT 181 07/26/2017 Lab Results Component Value Date NA 138 07/26/2017 K 4.5 07/26/2017 CL 101 07/26/2017 CO2 27 07/26/2017 BUN 22 07/26/2017 CREATININE 1.59 (H) 07/26/2017 CALCIUM 9.0 07/26/2017 GLU 155 (H) 07/26/2017 IMAGING: Scanned Rhythm Strips Result Date: 07/26/2017 Ordered by an unspecified provider. Cardiac Procedure Result Date: 07/25/2017 ?? Ost RCA lesion 60% stenosed. ?? Mid RCA lesion 40% stenosed. ?? Mid LAD lesion 50% stenosed. Significant but not clearly flow limiting dz Ostial RCA of 50-70% - difficult to image due to angulation with FFR of 0.92 Mid LAD appearing 50% with FFR of 0.82 Normal LVEDP ACTIVE PROBLEM LIST: Active Hospital Problems Diagnosis ??? *Acute chest pain ??? Chest pain ??? Intellectual disability ??? Schizoaffective disorder, depressive type ([facility]) ??? 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 ([facility]) ??? 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 3 chronic kidney disease, with long-term current use of insulin ([facility]) ??? S/P ablation of atrial flutter ??? Chronic diastolic CHF (congestive heart failure) ([facility]) ??? 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 History of CVA (cerebrovascular accident) ASSESSMENT AND PLAN: This is a 67 y.o. female who was admitted on 07/24/2017 and has the following issues: 1. NSTEMI [facility] 07-24-17 ?? Ost RCA lesion 60% stenosed. ?? Mid RCA lesion 40% stenosed. ?? Mid LAD lesion 50% stenosed. Significant but not clearly flow limiting dz Ostial RCA of 50-70% - difficult to image due to angulation with FFR of 0.92 Mid LAD appearing 50% with FFR of 0.82 Normal LVEDP --> no post angio complications --> post cath cr 1.59 --> Will continue medical therapy --> DAPT w Plavix/ASA for 1-3 months --> Hemodynamically stable ?? Bradycardia HR 50's No HB, pauses On Lopressor 50 mg BID ?? CAD - Card cath (10/2016): 50-60% mid LAD, 50% ost RCA, pEF - managed medically - Nonischemic stress (04/2017) - On Imdur, Ranexa prior to admit ?? Atrial Flutter - S/p AF ablation (2015) -remains SR-SB on tele ?? Hypertension - OMT on BB and Lisinopril ?? Dyslipidemia - On statin ?? DM -per primary care ?? H/o CVA - Residual left hemiparesis -pt feels more weak all over today and trouble just trying to get up in bed -ASA, statin PLAN Rx medical mngt of ASHD Cont ASA, plavix up to 3 months Cont BB and ARABELLA- Lower BB per bradycardia BP, HR stable Home when OK by others Will ask PT to see--> Pt weak on left side and difficulty sitting up in bed Dr Devries in 2 weeks Shane Anderson APRN 07/26/2017 11:23 AM Cosigned by Bello Cruz MD at 07/26/2017 1:48 PM EDT Associated attestation - Bello Cruz MD - 07/26/2017 1:48 PM EDT Agree with discharge as above. No other changes from cardiology standpoint. * Mayo Omalley DO - 07/26/2017 11:19 AM EDT Images from the original note were not included. PROGRESS NOTE Assessment/Plan: ?*Acute chest pain ?Coronary artery disease involving tetlin coronary artery of tetlin heart with unstable angina pectoris (HCC) -trend trop and ekg -cards to [facility] Noted Ost RCA lesion 60% stenosed. Mid RCA lesion 40% stenosed. Mid LAD lesion 50% stenosed. Significant but not clearly flow limiting dz . Normal LVEDP -asa, bb, statin ?Schizoaffective disorder, depressive type ([facility]) ?Intellectual disability -obs -home regimen ?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 ([facility]) ?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 3 chronic kidney disease, with long-term current use of insulin ([facility]) -ssi/long acting -home regimen ?S/P ablation of atrial flutter ?Chronic diastolic CHF (congestive heart failure) ([facility]) -is and os -daily weight -diuresis prn -tele ?History of CVA (cerebrovascular accident) -OBS -PT to see if neccessary ?? Discharge anticipated for today pending cards eval ?? Active Hospital Problems Diagnosis ??? *Acute chest pain ??? Chest pain ??? Intellectual disability ??? Schizoaffective disorder, depressive type ([facility]) ??? 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 ([facility]) ??? 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 3 chronic kidney disease, with long-term current use of insulin ([facility]) ??? S/P ablation of atrial flutter ??? Chronic diastolic CHF (congestive heart failure) ([facility]) ??? 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 History of CVA (cerebrovascular accident) Subjective: Discussed weakness PT will assess Cards to discussed dc timing today Objective: BP 112/58 (BP Location: Right arm, Patient Position: Semi Fowlers) Pulse 59 Temp 98.6 ??F (37 ??C) (Oral) Resp 18 Ht 5' 8 (1.727 m) Wt 236 lb 9.6 oz (107.3 kg) SpO2 92% ? No BMI 35.97 kg/m?? I/O last 3 completed shifts: In: 1210 [P.O.:410; I.V.:800] Out: 500 [Urine:500] Weight: 236 lb 9.6 oz (107.3 kg) Constitutional: Alert and oriented to person, [...] Labs: Laboratory data and diagnostic testing reviewed 07/26/17. Mayo Omalley DO 07/26/2017 11:19 AM * Faby Omer RN - 07/25/2017 10:30 PM EDT Pt.'s bedrest completed . L groin site without bleeding or hematoma,no c/o chest pain or discomfort, some meds held d/t sbp 90s and hr 50s, see MAR,will cont. to monitor. * Ela Zhang RN - 07/25/2017 5:23 PM EDT Pt arrived from labour market economist per stretcher. Placed on cardiac care unit nurse and oriented to room. Rt femoral artery site negative for hematoma, negative for bleeding and negative for ecchymosis. Dressing is dry and intact. Will continue to evaluate. Skin assessment performed on transfer from unit. Excoriation noted on all skin folds worse rt groin than left. Bruising scattered and blanchable redness noted coccyx. Left groin site addressed in addtl worksheet. * Deisy Campuzano RN - 07/25/2017 4:30 PM EDT Redoing another ACT, no blood return prior ACT at [address] Winchester notified and gave order to remove sheath. Will continue to monitor. * Gerard Reddy RN - 07/25/2017 4:29 PM EDT Patient to be sent to [facility] for closer monitoring after her coronary Angiogram. Report called to floor and belongings collected and delivered to patient new room.. * Shira Borges RPH - 07/25/2017 11:49 AM EDT S: Faby Palm is a(n) 67 y.o. female with diagnosis of CP / AMI / ACS. Allergies: Compazine [prochlorperazine edisylate]; Medina; Pentazocine hcl; Prochlorperazine maleate; and Talwin [pentazocinelactate] Pharmacy managing heparin therapy. Bleeding signs/symptoms noted: scattered bruising. O: Most Recent Labs: Recent Labs 07/22/17 1427 07/24/17 0913 07/25/17 0720 WBC 9.9 10.6 9.5 HGB 12.9 13.6 11.0* HCT 38.8 41.4 34.4 PLT 157 167 177 Recent Labs 07/24/17 2057 07/25/17 0720 HEPARINLEVEL 0.22* 0.34 Recent Labs 07/22/17 1427 07/24/17 0913 07/24/17 1119 07/24/17 1554 07/25/17 0720 TROPT <0.01 < > 0.02* 0.07* 0.10* -- BUN 10 -- 12 -- -- 20 CREATININE 1.14 -- 1.17 -- -- 1.66* < > = values in this interval not displayed. Weight: 232 lb 6.4 oz (105.4 kg) A/P: CP / AMI / ACS Physician orders and progress notes reviewed. Plan for coronary cath this afternoon at 1300. Hgb/Hct are stable. Will continue current dose of heparin 1500 units/hr . Will follow pertinent labparameters in am and adjust for goal (anti-Xa 0.3 - 0.7 unit/mL). Thank you! Shira Borges RPH * Mayo Omalley, DO - 07/25/2017 10:14 AM EDT Images from the original note were not included. PROGRESS NOTE Assessment/Plan: *Acute chest pain Coronary artery disease involving tetlin coronary artery of tetlin heart with unstable angina pectoris (HCC) -trend trop and ekg -cards to eval -discussed [facility] today -asa, bb, statin ?? Schizoaffective disorder, depressive type (HCC) Intellectual disability -obs -home regimen ?? 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 (HCC) 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 3 chronic kidney disease, with long-term current use of insulin (HCC) -ssi/long acting -home regimen ?? S/P ablation of atrial flutter Chronic diastolic CHF (congestive heart failure) (HCC) -is and os -daily weight -diuresis prn -tele ?? History of CVA (cerebrovascular accident) -OBS -PT to see if neccessary ?? Discharge anticipated for 1-2days pending [facility] Active Hospital Problems Diagnosis ??? *Acute chest pain ??? Chest pain ??? Intellectual disability ??? Schizoaffective disorder, depressive type (HCC) ??? 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 (HCC) ??? 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 3 chronic kidney disease, with long-term current use of insulin (HCC) ??? S/P ablation of atrial flutter ??? Chronic diastolic CHF (congestive heart failure) (HCC) ??? 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 History of CVA (cerebrovascular accident) Subjective: This AM doing well Pain controlled Wants to go home Objective: BP 109/52 (BP Location: Right arm, Patient Position: Semi Fowlers) Pulse 57 Temp 98.7 ??F (37.1??C) (Oral) Resp 17 Ht 5' 8 (1.727 m) Wt 232 lb 6.4 oz (105.4 kg) SpO2 92% ? No BMI 35.34 kg/m?? I/O last 3 completed shifts: In: 439 [P.O.:230; I.V.:209] Out: - Weight: 232 lb 6.4 oz (105.4 kg) Constitutional: Alert and oriented to person, [...] Labs: Laboratory data and diagnostic testing reviewed 07/25/17. Mayo Omalley DO 07/25/2017 10:14 AM * Gerard Reddy RN - 07/25/2017 8:43 AM EDT Patient resting in bed this morning with no complaints of pain. Vital signs are stable and on room air. Patient to have coronary cath at 1300 today. All morning medications given with about 50 mL of water. Call light within reach and will continue to monitor. * Sharee Latif RN - 07/24/2017 10:12 PM EDT Noted rate change in heparin gtt. * Faby Schuler RPH - 07/24/2017 9:51 PM EDT Pharmacy Note - heparin Ms. Palm is on a heparin drip for NSTEMI, PCI tomorrow. Her anti-Xa level this evening is subtherapeutic at 0.22 units/ml (goal: 0.3-0.7 units/ml). Will increase drip to 1500 units/hr and follow in am. Thank you, Faby Schuler PharmD * Gerard Reddy RN - 07/24/2017 3:44 PM EDT Patient arrived to floor from ED with diagnosis of NSTEMI. Patient [facility] and was brought to ER after complaining of chest pain that radiated down her arm and elevated heart rate. Patient admission was completed. Patient currently resting in bed this afternoon with no complaints of pain. Vital signs are stable and on room air. Skin assessment was completed on admission. Dusky skin noted on areas of lower extremities with scattered bruising. No open areas noted on admission. Patient is on Heparin drip that is running at 13.3 mL/hr. Call light within reach and will continue to monitor. * Mira Hudson, [facility] - 07/24/2017 1:28 PM EDT [facility] S: Faby Palm is a(n) 67 y.o. female with diagnosis of CP / AMI / ACS. Allergies: Compazine [prochlorperazine edisylate]; Medina; Pentazocine hcl; Prochlorperazine maleate; and Talwin [pentazocinelactate]. Pharmacy consulted for management of heparin pharmacotherapy. Bleeding signs/symptoms noted: none. O: Anticoagulation therapy received prior to consult: aspirin 81 mg daily Most Recent Labs: Recent Labs 07/22/17 1427 07/24/17 0913 WBC 9.9 10.6 HGB 12.9 13.6 HCT 38.8 41.4 PLT 157 167 Platelets are being monitored at least every 48 hours while the patient is receiving unfractionatedheparin therapy. Recent Labs 07/22/17 1427 07/22/17 1657 07/24/17 0913 07/24/17 1119 TROPT <0.01 <0.01 0.02* 0.07* BUN 10 -- 12 -- CREATININE 1.14 -- 1.17 -- Weight: 245 lb (111.1 kg) A/P: CP / AMI / ACS Physician orders and progress notes reviewed. Will initiate therapy per protocol. Heparin dose has been adjusted for age and weight. Will bolus 4000 units and initiate infusion at 1300 units/hour. Pharmacy will follow pertinent lab parameters in 6 hours and adjust for goal (anti-Xa 0.3 - 0.7 unit/mL). Thank you! Mira Hudson, PharmD, BCPS, BCCCP documented in this encounter H&P Notes * Mike Winchester MD - 07/25/2017 2:27 PM EDT PHYSICIAN IMMEDIATE PRE-PROCEDURE UPDATE H&P and SEDATION ASSESSMENT Risks, benefits, potential complications and alternatives have been discussed with patient and/or patient's legal authorized title insurance sales representative. HISTORY AND PHYSICAL H&P is less than 30 days old and reviewed. The patient was examined and NO change has occurred in the patient's condition since the H&P was completed. SEDATION ASSESSMENT The patient's immediate pre-procedure physical assessment indicates the patient is a suitable candidate for and agrees to the planned sedation: Moderate sedation Patient has been NPO for a sufficient period of time to allow for gastric emptying. Date of last liquid consumption: 07/25/17 Time of last liquid consumption: 0838 Date of last solid food consumption: 07/24/17 Time of last solid food consumption: 2300 Comment: Patient has no previous adverse experience to anesthesia. Comment: Vital Signs: Temp: 98.5 ??F (36.9 ??C) Pulse: (!) 48 Resp: 15 BP: 97/50 SpO2: 92 % Comment: Patient's pain has been assessed and based on patient report consideration has been given as to howit might alter the patient's sedation plan. Comment: Patient's airway has been assessed and consideration has been given as to how it might alter the patient's response to sedation. Mallampati Score: III (soft palate, base of uvula visible) Height: 5' 8 (172.7 cm) Weight: 232 lb 6.4 oz (105.4 kg) BMI (Calculated): 35.6 Comment: Allergies Allergen Reactions ??? Compazine [Prochlorperazine Edisylate] ??? Medina ??? Pentazocine Hcl ??? Prochlorperazine Maleate ??? Talwin [Pentazocine Lactate] Source Note - Mike Winchester MD - 07/24/2017 2:32 PM EDT CARDIOLOGY CONSULT Faby Palm Today's Date: 07/24/2017 Date of Admission: 07/24/2017 Primary Care Provider: Sharee Segovia ARNP Final [employer] Packing Supervisor: Bello Devries Chief Complaint: Chest pain Referring MD: Ela Zayas HPI: Faby Palm 67 y/o female with a history of CAD, HTN, HLD, atrial flutter and prior CVA presents with chest pain that awoke her from sleep early this morning. Describes as a pressure with radiation to bilateral jaw and left arm. She felt short of breath. Took 1 NTG with partial relief. Called staff at assisted living and EMS called. Per notes, went into narrow complex tachycardia twice in EMSwith spontaneous conversion back to NSR. She has been ST / NSR since arrival here. She reports feeling palpitations during episode. Admits to intermittent chest and jaw pain over the last month usually lasting an hour or so in duration. Unrelated to activity but she is overall sedentary. Does note o ften occurs with stress . Seen in ED (07/22) with chest pain but she was adamant to leave to buy cat food. Cardiac catheterization (10/2016) managed medically. Nonischemic stress (04/2017). ROS: Denies: Constitutional: fever, chills ENT: headaches, vertigo Cardiovascular: edema, orthopnea, lightheaded, syncope Pulmonary: cough, sputum production Gastrointestinal: abdominal pain, nausea, vomiting Genitourinary: change in bladder habits Integumentary: rash Hematologic/Lymphatic: abnormal bruising Allergic/Immunologic: hives Allergies Allergen Reactions ??? Compazine [Prochlorperazine Edisylate] ??? Medina ??? Pentazocine Hcl ??? Prochlorperazine Maleate ??? Talwin [Pentazocine Lactate] Prior to Admission Medications Prior to Admission medications Medication Sig Start [...] mouth daily. 04/14/17 Yes Sherif Bartholomew MD cloNIDine HCl (CATAPRES) 0.1 mg Oral Tablet Take 1 Tab by mouth 2 times daily. Hold for SBP <90 07/20/17 Yes Sridevi Calle APRN ferrous sulfate 325 mg (65 mg [...] (with breakfast). Yes Provider, Historical metoprolol (LOPRESSOR) 50 mg Oral Tablet TAKE 1 TABLET BY MOUTH 2 TIMES DAILY 01/26/17 Yes Joanna Pierce MD nitroGLYCERIN (NITROSTAT) 0.4 mg SL Tablet, Sublingual Place 1 Tab under the tongue every 5 minutesas needed for Chest pain. 11/19/16 Yes Sharee Segovia ARNP RANEXA 1,000 mg Oral Tablet Sustained Release [...] mouth nightly. 05/12/17 Yes Eric Gavin MD valACYclovir (VALTREX) 1 gram Oral Tablet Take by mouth 3 times daily. Yes Provider, Historical [id number] (ANTI-GAS ORAL) Take by mouth 3 times daily as needed. Provider, Historical atorvastatin (LIPITOR) 20 mg Oral Tablet TAKE ONE TABLET BY MOUTH NIGHTLY 03/24/17 Joanna Pierce MD insulin glargine (LANTUS) 100 unit/mL SubQ Solution Subcutaneous (Inject under the skin) 28 Units every evening. 02/23/17 Eric Gavin MD inulin (FIBER CHOICE, INULIN,) 1.5 gram Oral Tablet, Chewable Take by mouth 2 times daily. Provider, Historical nystatin (MYCOSTATIN) Top Powder Apply topically 2 times daily. Provider, Historical pantoprazole (PROTONIX) 40 mg Oral Tablet, Delayed Release (E.C.) TAKE ONE TABLET BY MOUTH ONCE DAILY 11/26/16 Joanna Pierce MD risperiDONE (RISPERDAL) 0.5 mg Oral Tablet Take 0.5 mg by mouth nightly. Provider, Historical Saccharomyces boulardii (FLORASTOR) 250 mg Oral Capsule Take 1 Cap by mouth 2 times daily. Patient not taking: Reported on 07/22/2017 05/12/17 Eric Gavin MD sucralfate (CARAFATE) 100 mg/mL Oral Suspension Take 1 g by mouth 4 times daily (before meals and nightly). Provider, Historical Past Medical History: Past Medical History: Diagnosis Date ??? Atrial flutter (HCC) EPS, AFL Ablation on 12/31/[address] Tee ??? CHF (congestive heart failure) (HCC) ??? COPD (chronic obstructive pulmonary disease) (HCC) ??? DDD (degenerative disc disease) ??? Diabetes mellitus (HCC) ??? Hypertension ??? Intellectual disability 05/03/2017 ??? KS (myocardial infarction) ([facility]) ??? RLS (restless legs syndrome) ??? Schizoaffective disorder, depressive type ([facility]) 02/19/2017 ??? Stroke (HCC) 2010 left side affected ??? Suicide attempt (HCC) ??? Urinary incontinence ??? Yeast infection recurrent Surgical History: Past Surgical History: Procedure Laterality [...] MD; Location: [facility]; Service: Endoscopy Family History: Family History Problem Relation Age of Onset ??? Cancer Mother larnyx cancer ??? Heart Disease Sister ??? No Known Problems Son ??? Seizures Daughter Social History: reports that she has never smoked. She has never used smokeless tobacco. She reports that she does not drink alcohol or use drugs. Labs: Lab Results Component Value Date HGB 13.6 07/24/2017 HCT 41.4 07/24/2017 PLT 167 07/24/2017 NA 136 07/24/2017 K 4.6 07/24/2017 CREATININE 1.17 07/24/2017 BUN 12 07/24/2017 TSH 2.900 05/03/2017 INR 1.12 (H) 07/16/2017 Vitals: Vitals: 07/24/17 1000 07/24/17 1200 07/24/17 1300 07/24/17 1415 BP: 97/50 115/64 139/79 BP Location: Patient Position: Pulse: 102 80 79 95 Resp: 29 22 19 14 Temp: TempSrc: SpO2: 90% Weight: Height: Body mass index is 37.25 kg/m??. TELEMETRY: NSR, 80's Physical Exam: GEN: Alert, pleasant and oriented x3. In no acute distress. HEENT: Sclerae anicteric. No xanthelasmas. EOM's intact. NECK: Supple. LUNGS: clear to auscultation. Chest wall nontender. HEART: RRR, no murmur, gallop, or rub. ABD: soft, nontender, positive bowel sounds EXT: no edema, +2 radial, +2 PT pulses NEURO: left hemiparesis Cardiac Catheterization (10/2016): Mid LAD 50-60% stenosis Ostial RCA 50% stenosis.200mcg of IC NTG administered and angiogram performed. The ejection fraction is greater than 55% by visual estimate Plan Films reviewed by Dr. Wayne- med Rx. Echo (04/2017): LVEF 60-65%, no WMA, diastolic dysfunction, mild RV dil, mild TR, RVSP~31+JVP EKG: ST, rate 114, minor ST depression I, aVL, inferior / anterior QW Assessment: Chest pain - Troponins 0.02, 0.07 - Initial EKG with minor ST depression, not as evident on follow-up tracing Narrow Complex Tachycardia - Per EMS, no strips available for review CAD - Card cath (10/2016): 50-60% mid LAD, 50% ost RCA, pEF - managed medically - Nonischemic stress (04/2017) - On Imdur, Ranexa prior to admit Atrial Flutter - S/p AF ablation (2015) Hypertension - Elevated but has not received home medications today Dyslipidemia - On statin DM H/o CVA - Residual left hemiparesis Plan: - Follow troponin trend - DW MD - plans for cardiac catheterization in am. Procedure, benefits and risks DWP. She verbalizes understanding and wishes to proceed. Plan for tomorrow with Dr. Winchester. - Monitor for arrhythmia / tachycardia on telemetry - Continue ASA, Metoprolol, Norvasc, Lasix, Imdur, Lisinopril, Clonidine, Lipitor Further input to follow-up from Dr. Ranulfo Oropeza, PLUMBING INSPECTOR 07/24/2017 Addendum: I personally interviewed and examined the above patient. I have reviewed the PMH, Social Hx, and ROS. I agree with the outlined assessment and plan as noted. Pt presents with chest pain. Somewhat inconsistent with description. Recent ER visit for chest pain. Now comfortable but troponin found to be mildly elevated. EMS reports narrow complex tachycardia en route EKG: NSR. Possible age undetermined anterolateral KS with low voltage limb leads. Similar to prior tracing. Exam: GENERAL APPEARANCE: In no acute distress. Tangential with questions NECK: No JVD, No Bruit. Carotid upstrokes are full. RESPIRATORY: Normal breath sounds bilaterally. No rales or wheezing HEART: Normal S1, S2- No S3, S4. No Murmur, rub or gallop. ABDOMEN: Soft, nontender. Bowel sounds are normoactive. EXTREMITIES: No edema- No cyanosis. Good capillary refill. Assessment: Chest pain - vague descriptors but troponin elevation with recent ER assessment Narrow Complex Tachycardia- Per EMS, no strips available for review CAD - significant dz in LAD and RCA on cath 10/22 but felt not likely flow limiting Atrial Flutter - S/p AF ablation (2015) Hypertension Dyslipidemia - On statin Diabetes H/o CVA - Residual left hemiparesis Schizoaffective d/o and Depression Plan: Continue beta laquita, asa and Heparin Will plan for cardiac cath and possible PCI in am Discussed the risks and benefits in depth with Fabychaz Palm, including, but not limited to, risks of bleeding, infection, heart attack or stroke. * Mayo Omalley DO - 07/24/2017 1:10 PM EDT [facility] History and Physical Name: Faby Palm ADDRESS: [address] [place] [address] : 1950 AGE: 67 y.o. Admitting Physician: Mayo Omalley DO Date of Admit: 07/24/2017 Chief Complaint: Chief Complaint Patient presents with ??? Chest Pain Pt to ER via squad with complaints of SVT per EMS. Pt at this time HR is 115. PT states chest painand jaw pain woke me up this morning @ 645. CPTA: zofran History of Present Illness: 67 y/o female with hx of Dm, cad, cva presents with c/o palpitations. Pt presented to the ED 2 days ago with paroxysmal atrial flutter and atypical chest pain and prescribed norvasc.Her last echo was in 04/2017 and it revealed Left Ventricular ejection fraction is estimated at 60- 65%. Last ischemic eval 2015. Trop elevated in ED cards consulted. Prescriptions Prior to Admission Medication Sig Dispense Refill Last Dose ??? acetaminophen 325 mg Oral Tab Take 650 mg by mouth every 4 hours as needed for Pain. 07/23/2017 at Unknown time ??? qjrqk-[id number]-ucyxtayjiqpdp (ANTI-GAS ORAL) Take by mouth 3 times daily as needed. 07/09/2017 at Unknown time ??? amLODIPine (NORVASC) 2.5 mg Oral Tablet Take 1 Tab by mouth daily. 30 Tab 11 07/21/2017 at pm ??? ARIPiprazole (ABILIFY) 30 mg Oral Tablet Take 1 Tab by mouth daily. 30 Tab 0 07/22/2017 at am ??? aspirin 81 mg Oral Tablet, Chewable Take 1 Tab by mouth daily. 60 Tab 0 07/22/2017 at am ??? atorvastatin (LIPITOR) 20 mg Oral Tablet TAKE ONE TABLET BY MOUTH NIGHTLY 30 Tab 1 Taking at Unknown time ? ? cloNIDine HCl (CATAPRES) 0.1 mg Oral Tablet Take 1 Tab by mouth 2 times daily. Hold for SBP <90 60 Tab 2 07/22/2017 at am ??? ferrous sulfate 325 mg (65 mg iron) Oral Tablet Take 1 Tab by mouth 2 times daily (with meals).60 Tab 5 07/22/2017 at am ??? fUROsemide (LASIX) 20 mg Oral Tablet Take 1 Tab by mouth daily. 30 Tab 0 07/22/2017 at am ??? glipiZIDE (GLUCOTROL) 10 mg Oral Tablet Take 10 mg by mouth 2 times daily (with meals). 07/22/2017 at am ??? inulin (FIBER CHOICE, INULIN,) 1.5 gram Oral Tablet, Chewable Take by mouth 2 times daily. Taking at Unknown time ??? isosorbide mononitrate (IMDUR) 60 mg Oral Tablet Sustained Release 24 hr TAKE ONE TABLET BY MOUTH ONCE DAILY 30 Tab 1 07/22/2017 at am ??? lamoTRIgine (LAMICTAL) 25 mg Oral Tablet Take 1 Tab by mouth 2 times daily. 60 Tab 0 07/22/2017 at am ??? lisinopril (PRINIVIL;ZESTRIL) 20 mg Oral Tablet Take 20 mg by mouth daily. 07/22/2017 at am ??? loperamide (IMODIUM) 2 mg Oral Capsule Take 2 mg by mouth 2 times daily. Taking at Unknown time ??? metoprolol (LOPRESSOR) 50 mg Oral Tablet TAKE 1 TABLET BY MOUTH 2 TIMES DAILY 60 Tab 2 07/22/2017 at am ??? nitroGLYCERIN (NITROSTAT) 0.4 mg SL Tablet, Sublingual Place 1 Tab under the tongue every 5 minutes as needed for Chest pain. 20 Tab 2 07/22/2017 at Unknown time ??? pantoprazole (PROTONIX) 40 mg Oral Tablet, Delayed Release (E.C.) TAKE ONE TABLET BY MOUTH ONCEDAILY 30 Tab 6 07/22/2017 at am ??? RANEXA 1,000 mg Oral Tablet Sustained Release 12 hr TAKE ONE TABLET BY MOUTH EVERY 12 HOURS 60 Tab 0 07/22/2017 at am ??? sertraline (ZOLOFT) 100 mg Oral Tablet Take 200 mg by mouth daily. Reported on 08/12/2016 07/22/2017 at am ??? valACYclovir (VALTREX) 1 gram Oral Tablet Take by mouth 3 times daily. 07/22/2017 at am ??? insulin glargine (LANTUS) 100 unit/mL SubQ Solution Subcutaneous (Inject under the skin) 28 Units every evening. 10 mL 12 Taking at Unknown time ??? metFORMIN XR (GLUCOPHAGE-XR) 500 mg Oral Tablet Sustained Release 24 hr Take 500 mg by mouth daily (with breakfast). ??? nystatin (MYCOSTATIN) Top Powder Apply topically 2 times daily. Taking at Unknown time ??? risperiDONE (RISPERDAL) 0.5 mg Oral Tablet Take 0.5 mg by mouth nightly. Taking at Unknown time ??? Saccharomyces boulardii (FLORASTOR) 250 mg Oral Capsule Take 1 Cap by mouth 2 times daily. (Patient not taking: Reported on 07/22/2017) 60 Cap 0 Not Taking at Unknown time ??? sucralfate (CARAFATE) 100 mg/mL Oral Suspension Take 1 g by mouth 4 times daily (before meals and nightly). Taking at Unknown time ??? traZODone (DESYREL) 300 mg Oral Tablet Take 1 Tab by mouth nightly. (Patient taking differently: Take 150 mg by mouth nightly.) 30 Tab 0 Allergies Allergen Reactions ??? Compazine [Prochlorperazine Edisylate] ??? Medina ??? Pentazocine Hcl ??? Prochlorperazine Maleate ??? [...] AND BRUSHING; Surgeon: Be Brown MD; [facility]; Service: Endoscopy Social History Social [...] ??? None Social History Narrative Lives at [facility] Has two children and two [...] loss ?? Eyes: No visual disturbance ?? HENT: No headache, hearing loss, epistaxis, sore throat, or hoarseness ?? Lungs: No SOB, cough, hemoptysis, or pleuritic chest pain ?? Cardiovascular: No PND or orthopnea ?? Endocrine: No polyuria, polydipsia, or polyphagia ?? GI: No abdominal pain, nausea, vomiting, hematemesis, diarrhea, constipation, melena, hematochezia, or bright red blood per rectum ?? : No dysuria, frequency, hesitancy, or hematuria ?? Musculoskeletal: No myalgias or muscle weakness ?? Neurologic: No focal numbness or weakness ?? Skin: No edema, jaundice, or skin discoloration ?? Psychiatric: No depression, homicidal or suicidal ideation ?? Hematologic/Allergic: No history of blood clots, bleeding or easy bruising OBJECTIVE: Physical Exam: Patient Vitals for the past 24 hrs: BP Temp Temp src Pulse Resp SpO2 Height Weight 07/24/17 1434 (!) 150/91 99 ??F (37.2 ??C) Oral 88 16 94 % 5' 8 (1.727 m) 233 lb 8 oz (105.9 kg) 07/24/17 1415 139/79 - - 95 14 - - - 07/24/17 1300 115/64 - - 79 19 - - - 07/24/17 1200 97/50 - - 80 22 90 % - - 07/24/17 1000 - - - 102 29 - - - 07/24/17 0914 103/72 - - 115 16 - - - 07/24/17 0911 (!) 80/46 - - 120 18 - - - 07/24/17 0900 (!) 80/46 - - 120 (!) 41 - - - 07/24/17 0858 (!) 79/42 - - 121 (!) 33 - - - 07/24/17 0837 - 99.8 ??F (37.7 ??C) Oral - - - - - 07/24/17 0832 123/62 - - 115 16 91 % 5' 8 (1.727 m) 245 lb (111.1 kg) Weight: 233 lb 8 oz (105.9 kg) ?? General: NAD ?? Head: Atraumatic, normocephalic ?? Eyes: PEERL, No purulent drainage, non-icteric sclera ?? ENT: Op clear, Nasal clear, MMM ?? Neck: Supple, No JVD ?? Lungs: CTA b/l, no wheeze, rales, or rhonchi ?? Cardiac: RRR, no MGR ?? Abdomen: + Bowel sounds, soft, non-tender ?? Musculoskeletal/Ext: Pulses 1-2+ bilaterally in upper and lower extremities. ?? Neurological: AAOx3, No focal deficits ?? Skin: Warm, no rashes, dry Labs: CBC: Lab Results Component Value Date WBC 10.6 07/24/2017 RBC 4.66 07/24/2017 HGB 13.6 07/24/2017 HCT 41.4 07/24/2017 MCV 88.9 07/24/2017 MCHC 32.8 07/24/2017 RDW 13.8 07/24/2017 MPV 10.2 07/24/2017 BMP: Lab Results Component Value Date NA 136 07/24/2017 K 4.6 07/24/2017 CL 99 07/24/2017 CO2 24 07/24/2017 BUN 12 07/24/2017 CREATININE 1.17 07/24/2017 CALCIUM 9.0 07/24/2017 GFRAFRAM 56 07/24/2017 GFRNONAFRAM 49 07/24/2017 GLU 323 (H) 07/24/2017 Hepatic: No results found for: ALKPHOS, ALT, AST, PROT, LABBILI, BILIDIR, IBILI, LABALBU No results found for: AMYLASE, LIPASE U/A:No results found for: SPECGRAV, UAPROTEIN, BLOODU, NITRITE, LEUKOCYTESUR, WBCUA, RBCUA Coagulation: No results found for: INR, APTT Cardiac markers: No results found for: CKMB, MYOGLOBIN ABGs:No results found for: PH, PCO2, PO2, HCO3, TCO2, BASEEXCESS, O2SAT, INSPIREDO2, SPECIMENTYPE Radiology: Ek Ekg 12 Lead Result Date: 07/24/2017 NOTICE: Preliminary tracing available for review; Final Interpretation by physician to follow. Stationary ECG Study [facility] Interpretive Statements SINUS RHYTHM LOW QRS VOLTAGE INPRECORDIAL LEADS ANTERIOR MYOCARDIAL INFARCTION, PROBABLY OLD INFERIOR MYOCARDIAL INFARCTION, PROBABLY OLD Ek Ekg 12 Lead Result Date: 07/24/2017 NOTICE: Preliminary tracing available for review; Final Interpretation by physician to follow. Stationary ECG Study [facility] Interpretive Statements SINUS TACHYCARDIA WITH OCCASIONAL ECTOPIC PREMATURE COMPLEXES ANTERIOR MYOCARDIAL INFARCTION, PROBABLY OLD INFERIOR MYOCARDIAL INFARCTION, OF INDETERMINATE AGE INTERPRETATION BASED ON A DEFAULT AGE OF 40 YEARS Results for orders placed during the hospital encounter of 07/24/17 EK EKG 12 LEAD Narrative NOTICE: Preliminary tracing available for review; Final Interpretation by physician to follow. Impression Stationary ECG Study [facility] Interpretive Statements SINUS RHYTHM LOW QRS VOLTAGE IN PRECORDIAL LEADS ANTERIOR MYOCARDIAL INFARCTION, PROBABLY OLD INFERIOR MYOCARDIAL INFARCTION, PROBABLY OLD Assessment/Plan: Active Hospital Problems *Acute chest pain Coronary artery disease involving tetlin coronary artery of tetlin heart with unstable angina pectoris (HCC) -trend trop and ekg -cards to eval -discussed LHC vs stress -asa, bb, statin Schizoaffective disorder, depressive type ([facility]) Intellectual disability -obs -home regimen 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 ([facility]) 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 3 chronic kidney disease, with long-term current use of insulin ([facility]) -ssi/long acting -home regimen S/P ablation of atrial flutter Chronic diastolic CHF (congestive heart failure) ([facility]) -is and os -daily weight -diuresis prn -tele History of CVA (cerebrovascular accident) -OBS -PT to see if neccessary I have reviewed and verified the Advance Care Plans and Healthcare Surrogate with pt Tono Omalley DO [facility] Hospitalist 07/24/2017 3:14 PM documented in this encounter Consult Notes * Mike Winchester MD - 07/24/2017 2:32 PM EDTAssociated Order(s): IP CONSULT TO CARDIOLOGY CARDIOLOGY CONSULT Faby Palm Today's Date: 07/24/2017 Date of Admission: 07/24/2017 Primary Care Provider: Sharee Segovia ARNP [employer] Supervisor: Bello Devries Chief Complaint: Chest pain Referring MD: Ela Zayas HPI: Faby Palm 67 y/o female with a history of CAD, HTN, HLD, atrial flutter and prior CVA presents with chest pain that awoke her from sleep early this morning. Describes as a pressure with radiation to bilateral jaw and left arm. She felt short of breath. Took 1 NTG with partial relief. Called staff at assisted living and EMS called. Per notes, went into narrow complex tachycardia twice in EMSwith spontaneous conversion back to NSR. She has been ST / NSR since arrival here. She reports feeling palpitations during episode. Admits to intermittent chest and jaw pain over the last month usually lasting an hour or so in duration. Unrelated to activity but she is overall sedentary. Does note o ften occurs with stress . Seen in ED (07/22) with chest pain but she was adamant to leave to buy cat food. Cardiac catheterization (10/2016) managed medically. Nonischemic stress (04/2017). ROS: Denies: Constitutional: fever, chills ENT: headaches, vertigo Cardiovascular: edema, orthopnea, lightheaded, syncope Pulmonary: cough, sputum production Gastrointestinal: abdominal pain, nausea, vomiting Genitourinary: change in bladder habits Integumentary: rash Hematologic/Lymphatic: abnormal bruising Allergic/Immunologic: hives Allergies Allergen Reactions ??? Compazine [Prochlorperazine Edisylate] ??? [place]ina ??? Pentazocine Hcl ??? Prochlorperazine Maleate ??? [place] [Pentazocine Lactate] Prior to Admission Medications Prior to Admission medications Medication Sig Start [...] mouth daily. 04/14/17 Yes Sherif Bartholomew MD cloNIDine HCl (CATAPRES) 0.1 mg Oral Tablet Take 1 Tab by mouth 2 times daily. Hold for SBP <90 07/20/17 Yes Sridevi Calle APRN ferrous sulfate 325 mg (65 mg [...] (with breakfast). Yes Provider, Historical metoprolol (LOPRESSOR) 50 mg Oral Tablet TAKE 1 TABLET BY MOUTH 2 TIMES DAILY 01/26/17 Yes Joanna Pierce MD nitroGLYCERIN (NITROSTAT) 0.4 mg SL Tablet, Sublingual Place 1 Tab under the tongue every 5 minutesas needed for Chest pain. 11/19/16 Yes Sharee Segovia ARNP RANEXA 1,000 mg Oral Tablet Sustained Release [...] mouth nightly. 05/12/17 Yes Eric Gavin MD valACYclovir (VALTREX) 1 gram Oral Tablet Take by mouth 3 times daily. Yes Provider, Historical xgahn-A-zqadasknjuyzg (ANTI-GAS ORAL) Take by mouth 3 times daily as needed. Provider, Historical atorvastatin (LIPITOR) 20 mg Oral Tablet TAKE ONE TABLET BY MOUTH NIGHTLY 03/24/17 Joanna Pierce MD insulin glargine (LANTUS) 100 unit/mL SubQ Solution Subcutaneous (Inject under the skin) 28 Units every evening. 02/23/17 Eric Gavin MD inulin (FIBER CHOICE, INULIN,) 1.5 gram Oral Tablet, Chewable Take by mouth 2 times daily. Provider, Historical nystatin (MYCOSTATIN) Top Powder Apply topically 2 times daily. Provider, Historical pantoprazole (PROTONIX) 40 mg Oral Tablet, Delayed Release (E.C.) TAKE ONE TABLET BY MOUTH ONCE DAILY 11/26/16 Joanna Pierce MD risperiDONE (RISPERDAL) 0.5 mg Oral Tablet Take 0.5 mg by mouth nightly. Provider, Historical Saccharomyces boulardii (FLORASTOR) 250 mg Oral Capsule Take 1 Cap by mouth 2 times daily. Patient not taking: Reported on 07/22/2017 05/12/17 Eric Gavin MD sucralfate (CARAFATE) 100 mg/mL Oral Suspension Take 1 g by mouth 4 times daily (before meals and nightly). Provider, Historical Past Medical History: Past Medical History: Diagnosis Date ??? Atrial flutter (HCC) EPS, AFL Ablation on 12/31/[address] Tee ??? CHF (congestive heart failure) (HCC) ??? COPD (chronic obstructive pulmonary disease) (HCC) ??? DDD (degenerative disc disease) ??? Diabetes mellitus (HCC) ??? Hypertension ??? Intellectual disability 05/03/2017 ??? KS (myocardial infarction) ([facility]) ??? RLS (restless legs syndrome) ??? Schizoaffective disorder, depressive type ([facility]) 02/19/2017 ??? Stroke (HCC) 2010 left side affected ??? Suicide attempt (HCC) ??? Urinary incontinence ??? Yeast infection recurrent Surgical History: Past Surgical History: Procedure Laterality [...] MD; Location: [facility]; Service: Endoscopy Family History: Family History Problem Relation Age of Onset ??? Cancer Mother larnyx cancer ??? Heart Disease Sister ??? No Known Problems Son ??? Seizures Daughter Social History: reports that she has never smoked. She has never used smokeless tobacco. She reports that she does not drink alcohol or use drugs. Labs: Lab Results Component Value Date HGB 13.6 07/24/2017 HCT 41.4 07/24/2017 PLT 167 07/24/2017 NA 136 07/24/2017 K 4.6 07/24/2017 CREATININE 1.17 07/24/2017 BUN 12 07/24/2017 TSH 2.900 05/03/2017 INR 1.12 (H) 07/16/2017 Vitals: Vitals: 07/24/17 1000 07/24/17 1200 07/24/17 1300 07/24/17 1415 BP: 97/50 115/64 139/79 BP Location: Patient Position: Pulse: 102 80 79 95 Resp: 29 22 19 14 Temp: TempSrc: SpO2: 90% Weight: Height: Body mass index is 37.25 kg/m??. TELEMETRY: NSR, 80's Physical Exam: GEN: Alert, pleasant and oriented x3. In no acute distress. HEENT: Sclerae anicteric. No xanthelasmas. EOM's intact. NECK: Supple. LUNGS: clear to auscultation. Chest wall nontender. HEART: RRR, no murmur, gallop, or rub. ABD: soft, nontender, positive bowel sounds EXT: no edema, +2 radial, +2 PT pulses NEURO: left hemiparesis Cardiac Catheterization (10/2016): Mid LAD 50-60% stenosis Ostial RCA 50% stenosis.200mcg of IC NTG administered and angiogram performed. The ejection fraction is greater than 55% by visual estimate Plan Films reviewed by Dr. Wayne- med Rx. Echo (04/2017): LVEF 60-65%, no WMA, diastolic dysfunction, mild RV dil, mild TR, RVSP~31+JVP EKG: ST, rate 114, minor ST depression I, aVL, inferior / anterior QW Assessment: Chest pain - Troponins 0.02, 0.07 - Initial EKG with minor ST depression, not as evident on follow-up tracing Narrow Complex Tachycardia - Per EMS, no strips available for review CAD - Card cath (10/2016): 50-60% mid LAD, 50% ost RCA, pEF - managed medically - Nonischemic stress (04/2017) - On Imdur, Ranexa prior to admit Atrial Flutter - S/p AF ablation (2015) Hypertension - Elevated but has not received home medications today Dyslipidemia - On statin DM H/o CVA - Residual left hemiparesis Plan: - Follow troponin trend - DW MD - plans for cardiac catheterization in am. Procedure, benefits and risks DWP. She verbalizes understanding and wishes to proceed. Plan for tomorrow with Dr. Winchester. - Monitor for arrhythmia / tachycardia on telemetry - Continue ASA, Metoprolol, Norvasc, Lasix, Imdur, Lisinopril, Clonidine, Lipitor Further input to follow-up from Dr. Ranulfo Oropeza, PLUMBING INSPECTOR 07/24/2017 Addendum: I personally interviewed and examined the above patient. I have reviewed the PMH, Social Hx, and ROS. I agree with the outlined assessment and plan as noted. Pt presents with chest pain. Somewhat inconsistent with description. Recent ER visit for chest pain. Now comfortable but troponin found to be mildly elevated. EMS reports narrow complex tachycardia en route EKG: NSR. Possible age undetermined anterolateral KS with low voltage limb leads. Similar to prior tracing. Exam: GENERAL APPEARANCE: In no acute distress. Tangential with questions NECK: No JVD, No Bruit. Carotid upstrokes are full. RESPIRATORY: Normal breath sounds bilaterally. No rales or wheezing HEART: Normal S1, S2- No S3, S4. No Murmur, rub or gallop. ABDOMEN: Soft, nontender. Bowel sounds are normoactive. EXTREMITIES: No edema- No cyanosis. Good capillary refill. Assessment: Chest pain - vague descriptors but troponin elevation with recent ER assessment Narrow Complex Tachycardia- Per EMS, no strips available for review CAD - significant dz in LAD and RCA on cath 10/22 but felt not likely flow limiting Atrial Flutter - S/p AF ablation (2015) Hypertension Dyslipidemia - On statin Diabetes H/o CVA - Residual left hemiparesis Schizoaffective d/o and Depression Plan: Continue beta laquita, asa and Heparin Will plan for cardiac cath and possible PCI in am Discussed the risks and benefits in depth with Faby Palm, including, but not limited to, risks of bleeding, infection, heart attack or stroke. documented in this encounter ED Notes * Rustam De RN - 07/24/2017 2:14 PM EDT Diet given * Rustam De RN - 07/24/2017 12:21 PM EDT sleeping * Rustam De RN - 07/24/2017 10:46 AM EDT sleeping * Rustam De RN - 07/24/2017 10:21 AM EDT sleeping * Rustam De RN - 07/24/2017 9:53 AM EDT sleeping * Rustam De RN - 07/24/2017 9:31 AM EDT Attempted to start iv x 2 unsuccessful * Ange Holden RN - 07/24/2017 8:21 AM EDT Bed: 20 Expected date: Expected time: Means of arrival: Comments: Svt * Ela Zayas MD - 07/24/2017 8:21 AM EDT Chief Complaint Patient presents with ??? Chest Pain Pt to ER via squad with complaints of SVT per EMS. Pt at this time HR is 115. PT states chest painand jaw pain woke me up this morning @ 645. CPTA: zofran History provided by: Patient and medical records Faby Palm is a 67 y/o female who presents to the ED via EMS c/o SVT. She presented to the ED 2 days ago with paroxysmal atrial flutter and atypical chest pain and prescribed norvasc. States that she woke up with lef sided chest pain and jaw pain at 0645 this morning and called EMS around 0700. She also reported radiation of pain down her left arm. Upon EMS arrival, she was in sinus tachycardia. She vomited once and this was followed by a narrow complex tachycardia with a rate of around 180, possible atrial fib. She arrives with a HR of 115. She reports her chest pain is a lot better since onset but still rates at 8/10 in severity. She took 1 NTG while at home with EMS there and EMS g ave 4mg zofran en route. Denies diaphoresis, palpitations or SOB associated with her pain. She denies nausea on exam. She does not wear O2 at home. Hx of CVA affecting her left side. She does not currently take any heart rate controlling medications. She had a coronary angiogram in 12/2015 which revealed proximal LAD 60-70% stenosis, mild diffuse disease throughout the vessel, and right coronary artery having high anterior takeoff, ostial RCA 20% and no dampening. Her last echo was in 04/2017 and it revealed Left Ventricular ejection fraction is estimated at 60-65%, Normal global left ventricular size, wall thickness, systolic function with no obvious regional wall motion abnormalities. Abnormal tissue doppler signal c/w impaired diastolic function. Mild right ventricular dilatation. Patient History Allergies Allergen Reactions ??? Compazine [Prochlorperazine Edisylate] ??? [place]ina ??? Pentazocine Hcl ??? Prochlorperazine Maleate ??? [...] mouth daily. 04/14/17 Yes Sherif Bartholomew MD cloNIDine HCl (CATAPRES) 0.1 mg Oral Tablet Take 1 Tab by mouth 2 times daily. Hold for SBP <90 07/20/17 Yes Sridevi Calle APRN ferrous sulfate 325 mg (65 mg [...] (with breakfast). Yes Provider, Historical metoprolol (LOPRESSOR) 50 mg Oral Tablet TAKE 1 TABLET BY MOUTH 2 TIMES DAILY 01/26/17 Yes Joanna Pierce MD nitroGLYCERIN (NITROSTAT) 0.4 mg SL Tablet, Sublingual Place 1 Tab under the tongue every 5 minutesas needed for Chest pain. 11/19/16 Yes Sharee Segovia ARNP RANEXA 1,000 mg Oral Tablet Sustained Release [...] mouth nightly. 05/12/17 Yes Eric Gavin MD valACYclovir (VALTREX) 1 gram Oral Tablet Take by mouth 3 times daily. Yes Provider, Historical yfzwi-B-kowvoeqylwbyh (ANTI-GAS ORAL) Take by mouth 3 times daily as needed. Provider, Historical atorvastatin (LIPITOR) 20 mg Oral Tablet TAKE ONE TABLET BY MOUTH NIGHTLY 03/24/17 Joanna Pierce MD insulin glargine (LANTUS) 100 unit/mL SubQ Solution Subcutaneous (Inject under the skin) 28 Units every evening. 02/23/17 Eric Gavin MD inulin (FIBER CHOICE, INULIN,) 1.5 gram Oral Tablet, Chewable Take by mouth 2 times daily. Provider, Historical nystatin (MYCOSTATIN) Top Powder Apply topically 2 times daily. Provider, Historical pantoprazole (PROTONIX) 40 mg Oral Tablet, Delayed Release (E.C.) TAKE ONE TABLET BY MOUTH ONCE DAILY 11/26/16 Joanna Pierce MD risperiDONE (RISPERDAL) 0.5 mg Oral Tablet Take 0.5 mg by mouth nightly. Provider, Historical Saccharomyces boulardii (FLORASTOR) 250 mg Oral Capsule Take 1 Cap by mouth 2 times daily. Patient not taking: Reported on 07/22/2017 05/12/17 Eric Gavin MD sucralfate (CARAFATE) 100 mg/mL Oral Suspension Take 1 g by mouth 4 times daily (before meals and nightly). Provider, Historical Past Medical History: Past Medical [...] syndrome) ??? Schizoaffective disorder, depressive type ([facility]) 02/19/2017 ??? Stroke ([facility]) 2010 left side affected ??? Suicide attempt ([facility]) ??? Urinary incontinence ??? Yeast infection recurrent [...] AND BRUSHING; Surgeon: Be Brown MD; [facility]; Service: Endoscopy Review of Systems Review of Systems Constitutional: Negative for chills and fever. HENT: Negative. Eyes: Negative. Respiratory: Negative for cough and shortness of breath. Cardiovascular: Positive for chest pain. Negative for palpitations and leg swelling. Gastrointestinal: Negative for abdominal pain, diarrhea, nausea and vomiting. Genitourinary: Negative for dysuria and frequency. Musculoskeletal: Negative. Jaw pain, arm pain Skin: Negative for rash. Neurological: Negative. Psychiatric/Behavioral: Negative. All other systems reviewed and are negative. Physical Exam Blood pressure 123/62, pulse 121, temperature 99.8 ??F (37.7 ??C), temperature source Oral, resp. rate (!) 33, height 5' 8 (1.727 m), weight 245 lb (111.1 kg), SpO2 91 %. Physical Exam Constitutional: She is oriented to person, place, and time. She appears well- developed and well-nourished. No distress. HENT: Head: Normocephalic and atraumatic. Mild facial droop on the left which is chronic Eyes: Conjunctivae are normal. Neck: Neck supple. No JVD present. No thyromegaly present. Cardiovascular: Regular rhythm. Exam reveals no gallop and no friction rub. No murmur heard. Mildly tachycardic Pulmonary/Chest: Effort normal and breath sounds normal. Abdominal: Soft. Bowel sounds are normal. She exhibits no distension. There is no tenderness. Musculoskeletal: She exhibits no edema. No calf asymmetry or tenderness Neurological: She is alert and oriented to person, place, and time. GCS eye subscore is 4. GCS verbal subscore is 5. GCS motor subscore is 6. Skin: Skin is warm and dry. No rash noted. Psychiatric: She has a normal mood and affect. Nursing note and vitals reviewed. Procedures Radiology/EKG/Labs: Results for orders placed or performed during the hospital encounter of 07/24/17 CBC WITH DIFF Result Value Ref Range WBC 10.6 4.0 - 11.0 x10(3)/mcL RBC 4.66 3.80 - 5.10 x10(6)/mcL Hgb 13.6 12.0 - 15.6 g/dL Hct 41.4 35.7 - 45.9 % MCV 88.9 82.5 - 99.8 fL MCH 29.2 27.0 - 34.3 pg MCHC 32.8 32.1 - 35.3 g/dL RDW 13.8 11.5 - 15.0 % Platelet 167 144 - 423 x10(3)/mcL MPV 10.2 6.8 - 10.8 fL Neut Percent 87.9 % Lymph Percent 6.2 % Haakon Percent 5.4 % Eos Percent 0.1 % Baso Percent 0.4 % Neut # 9.3 (H) 1.8 - 7.7 x10(3)/mcL Lymph # 0.7 0.6 - 4.8 x10(3)/mcL Haakon # 0.6 0.0 - 1.3 x10(3)/mcL Eos# 0.0 0.0 - 0.5 x10(3)/mcL Baso # 0.0 0.0 - 0.2 x10(3)/mcL BASIC METABOLIC PANEL Result Value Ref Range Sodium 136 136 - 145 mmol/L Potassium 4.6 3.5 - 5.0 mmol/L Chloride 99 98 - 107 mmol/L Total CO2 24 22 - 29 mmol/L Anion Gap 13 7 - 16 mmol/L Calcium 9.0 8.8 - 10.2 mg/dL Glucose Lvl 323 (H) 82 - 100 mg/dL BUN 12 8 - 23 mg/dL Creatinine 1.17 0.51 - 1.30 mg/dL GFR Afr Am 56 mL/min/1.73 m2 GFR Non Afr Am 49 mL/min/1.73 m2 TROPONIN-T Result Value Ref Range Troponin-T 0.02 (H) <0.01 ng/mL Narrative Ingestion of charles doses of biotin (>5 mg/day) taken within 8 hours of drawing blood sample can interfere with this immunoassay test. TROPONIN-T Result Value Ref Range Troponin-T 0.07 (H) <0.01 ng/mL Narrative Ingestion of charles doses of biotin (>5 mg/day) taken within 8 hours of drawing blood sample can interfere with this immunoassay test. TROPONIN-T Result Value Ref Range Troponin-T 0.10 (H) <0.01 ng/mL Narrative Ingestion of charles doses of biotin (>5 mg/day) taken within 8 hours of drawing blood sample can interfere with this immunoassay test. IP CONSULT TO CARDIOLOGY Mike Mullins MD 07/24/2017 4:22 PM CARDIOLOGY CONSULT Fabychaz Palm Today's Date: 07/24/2017 Date of Admission: 07/24/2017 Primary Care Provider: Sharee Segovia ARNP [employer] Supervisor: Bello Devries Chief Complaint: Chest pain Referring MD: Ela Zayas HPI: Faby Palm 67 y/o female with a history of CAD, HTN, HLD, atrial flutter and prior CVA presents with chest pain that awoke her from sleep early this morning. Describes as a pressure with radiation to bilateral jaw and left arm. She felt short of breath. Took 1 NTG with partial relief. Called staff at assisted living and EMS called. Per notes, went into narrow complex tachycardia twice in EMS with spontaneous conversion back to NSR. She has been ST / NSR since arrival here. She reports feeling palpitations during episode. Admits to intermittent chest and jaw pain over the last month usually lasting an hour or so in duration. Unrelated to activity but she is overall sedentary. Does note often occurs with stress . Seen in ED (07/22) with chest pain but she was adamant to leave to buy cat food. Cardiac catheterization (10/2016) managed medically. Nonischemic stress (04/2017). ROS: Denies: Constitutional: fever, chills ENT: headaches, vertigo Cardiovascular: edema, orthopnea, lightheaded, syncope Pulmonary: cough, sputum production Gastrointestinal: abdominal pain, nausea, vomiting Genitourinary: change in bladder habits Integumentary: rash Hematologic/Lymphatic: abnormal bruising Allergic/Immunologic: hives Allergies Allergen Reactions ??? Compazine [Prochlorperazine Edisylate] ??? Medina ??? Pentazocine Hcl ??? Prochlorperazine Maleate ??? Talwin [Pentazocine Lactate] Prior to Admission Medications Prior to Admission medications Medication Sig Start [...] mouth daily. 04/14/17 Yes Sherif Bartholomew MD cloNIDine HCl (CATAPRES) 0.1 mg Oral Tablet Take 1 Tab by mouth 2 times daily. Hold for SBP <90 07/20/17 Yes Sridevi Calle APRN ferrous sulfate 325 mg (65 mg [...] (with breakfast). Yes Provider, Historical metoprolol (LOPRESSOR) 50 mg Oral Tablet TAKE 1 TABLET BY MOUTH 2 TIMES DAILY 01/26/17 Yes Joanna Pierce MD nitroGLYCERIN (NITROSTAT) 0.4 mg SL Tablet, Sublingual Place 1 Tab under the tongue every 5 minutes as needed for Chest pain. 11/19/16 Yes Sharee Segovia ARNP RANEXA 1,000 mg Oral Tablet Sustained Release 12 hr TAKE ONE TABLET BY MOUTH EVERY 12 HOURS 06/28/17 Yes Joanna Pierce MD sertraline (ZOLOFT) 100 mg Oral Tablet Take 200 mg by mouth daily. Reported on 08/12/2016 Yes Provider, Historical traZODone (DESYREL) 300 mg Oral Tablet Take 1 Tab by mouth nightly. Patient taking differently: Take 150 mg by mouth nightly. 05/12/17 Yes Eric Gavin MD valACYclovir (VALTREX) 1 gram Oral Tablet Take by mouth 3 times daily. Yes Provider, Historical soywl-G-nfjgoibkitckl (ANTI-GAS ORAL) Take by mouth 3 times daily as needed. Provider, Historical atorvastatin (LIPITOR) 20 mg Oral Tablet TAKE ONE TABLET BY MOUTH NIGHTLY 03/24/17 Joanna Pierce MD insulin glargine (LANTUS) 100 unit/mL SubQ Solution Subcutaneous (Inject under the skin) 28 Units every evening. 02/23/17 Eric Gavin MD inulin (FIBER CHOICE, INULIN,) 1.5 gram Oral Tablet, Chewable Take by mouth 2 times daily. Provider, Historical nystatin (MYCOSTATIN) Top Powder Apply topically 2 times daily. Provider, Historical pantoprazole (PROTONIX) 40 mg Oral Tablet, Delayed Release (E.C.) TAKE ONE TABLET BY MOUTH ONCE DAILY 11/26/16 Joanna Pierce MD risperiDONE (RISPERDAL) 0.5 mg Oral Tablet Take 0.5 mg by mouth nightly. Provider, Historical Saccharomyces boulardii (FLORASTOR) 250 mg Oral Capsule Take 1 Cap by mouth 2 times daily. Patient not taking: Reported on 07/22/2017 05/12/17 Eric Gavin MD sucralfate (CARAFATE) 100 mg/mL Oral Suspension Take 1 g by mouth 4 times daily (before meals and nightly). Provider, Historical Past Medical History: Past Medical [...] ??? Urinary incontinence ??? Yeast infection recurrent Surgical History: Past Surgical History: Procedure Laterality Date ??? ABLATION OF DYSRHYTHMIC FOCUS 12/31/2015 atrial flutter ablation by Dr. Tee ??? ANKLE SURGERY ??? BREAST SURGERY reduction ??? JOINT REPLACEMENT left total knee replacement 1999 ??? LUNG SURGERY partial removal ??? ORTHOPEDIC SURGERY ??? TONSILLECTOMY ??? UPPER GASTROINTESTINAL ENDOSCOPY N/A 04/03/2015 ESOPHAGOGASTRODUODENOSCOPY WITH BIOPSY AND BRUSHING; Surgeon: Be Brown MD; [facility]; Service: Endoscopy Family History: Family History Problem Relation Age of Onset ??? Cancer Mother larnyx cancer ??? Heart Disease Sister ??? No Known Problems Son ??? Seizures Daughter Social History: reports that she has never smoked. She has never used smokeless tobacco. She reports that she does not drink alcohol or use drugs. Labs: Lab Results Component Value Date HGB 13.6 07/24/2017 HCT 41.4 07/24/2017 PLT 167 07/24/2017 NA 136 07/24/2017 K 4.6 07/24/2017 CREATININE 1.17 07/24/2017 BUN 12 07/24/2017 TSH 2.900 05/03/2017 INR 1.12 (H) 07/16/2017 Vitals: Vitals: 07/24/17 1000 07/24/17 1200 07/24/17 1300 07/24/17 1415 BP: 97/50 115/64 139/79 BP Location: Patient Position: Pulse: 102 80 79 95 Resp: 29 22 19 14 Temp: TempSrc: SpO2: 90% Weight: Height: Body mass index is 37.25 kg/m??. TELEMETRY: NSR, 80's Physical Exam: GEN: Alert, pleasant and oriented x3. In no acute distress. HEENT: Sclerae anicteric. No xanthelasmas. EOM's intact. NECK: Supple. LUNGS: clear to auscultation. Chest wall nontender. HEART: RRR, no murmur, gallop, or rub. ABD: soft, nontender, positive bowel sounds EXT: no edema, +2 radial, +2 PT pulses NEURO: left hemiparesis Cardiac Catheterization (10/2016): Mid LAD 50-60% stenosis Ostial RCA 50% stenosis.200mcg of IC NTG administered and angiogram performed. The ejection fraction is greater than 55% by visual estimate Plan Films reviewed by Dr. Wayne- med Rx. Echo (04/2017): LVEF 60-65%, no WMA, diastolic dysfunction, mild RV dil, mild TR, RVSP~31+JVP EKG: ST, rate 114, minor ST depression I, aVL, inferior / anterior QW Assessment: Chest pain - Troponins 0.02, 0.07 - Initial EKG with minor ST depression, not as evident on follow-up tracing Narrow Complex Tachycardia - Per EMS, no strips available for review CAD - Card cath (10/2016): 50-60% mid LAD, 50% ost RCA, pEF - managed medically - Nonischemic stress (04/2017) - On Imdur, Ranexa prior to admit Atrial Flutter - S/p AF ablation (2016) Hypertension - Elevated but has not received home medications today Dyslipidemia - On statin DM H/o CVA - Residual left hemiparesis Plan: - Follow troponin trend - KENDAL JOSE - plans for cardiac catheterization in am. Procedure, benefits and risks DWP. She verbalizes understanding and wishes to proceed. Plan for tomorrow with Dr. Winchester. - Monitor for arrhythmia / tachycardia on telemetry - Continue ASA, Metoprolol, Norvasc, Lasix, Imdur, Lisinopril, Clonidine, Lipitor Further input to follow-up from Dr. Ranulfo Gregoryecca Sandip, PLUMBING INSPECTOR 07/24/2017 Addendum: I personally interviewed and examined the above patient. I have reviewed the PMH, Social Hx, and ROS. I agree with the outlined assessment and plan as noted. Pt presents with chest pain. Somewhat inconsistent with description. Recent ER visit for chest pain. Now comfortable but troponin found to be mildly elevated. EMS reports narrow complex tachycardia en route EKG: NSR. Possible age undetermined anterolateral KS with low voltage limb leads. Similar to prior tracing. Exam: GENERAL APPEARANCE: In no acute distress. Tangential with questions NECK: No JVD, No Bruit. Carotid upstrokes are full. RESPIRATORY: Normal breath sounds bilaterally. No rales or wheezing HEART: Normal S1, S2- No S3, S4. No Murmur, rub or gallop. ABDOMEN: Soft, nontender. Bowel sounds are normoactive. EXTREMITIES: No edema- No cyanosis. Good capillary refill. Assessment: Chest pain - vague descriptors but troponin elevation with recent ER assessment Narrow Complex Tachycardia- Per EMS, no strips available for review CAD - significant dz in LAD and RCA on cath 10/22 but felt not likely flow limiting Atrial Flutter - S/p AF ablation (2016) Hypertension Dyslipidemia - On statin Diabetes H/o CVA - Residual left hemiparesis Schizoaffective d/o and Depression Plan: Continue beta laquita, asa and Heparin Will plan for cardiac cath and possible PCI in am Discussed the risks and benefits in depth with Faby Palm, including, but not limited to, risks of bleeding, infection, heart attack or stroke. GLUCOSE METER POC Result Value Ref Range Glucose Meter POC 243 (H) 70 - 100 mg/dL Sample Type Capillary Patient Status Non-Critical Patient ECG AND WAVEFORMS - TELEMETRY Result Value Ref Range ECG INTERPRET NSR RN APPROVED Yes Narrative See Clinical Report link for waveform capture EK EKG 12 LEAD Narrative NOTICE: Preliminary tracing available for review; Final Interpretation by physician to follow. Impression Stationary ECG Study [facility] Interpretive Statements SINUS TACHYCARDIA WITH OCCASIONAL ECTOPIC PREMATURE COMPLEXES ANTERIOR MYOCARDIAL INFARCTION, PROBABLY OLD INFERIOR MYOCARDIAL INFARCTION, OF INDETERMINATE AGE INTERPRETATION BASED ON A DEFAULT AGE OF 40 YEARS EK EKG 12 LEAD Narrative NOTICE: Preliminary tracing available for review; Final Interpretation by physician to follow. Impression Stationary ECG Study [facility] [place] Interpretive Statements SINUS RHYTHM LOW QRS VOLTAGE IN PRECORDIAL LEADS ANTERIOR MYOCARDIAL INFARCTION, PROBABLY OLD INFERIOR MYOCARDIAL INFARCTION, PROBABLY OLD ED Course: Appropriate laboratory and radiology studies reviewed Vitals: 07/24/17 1200 07/24/17 1300 07/24/17 1415 07/24/17 1434 BP: 97/50 115/64 139/79 (!) 150/91 BP Location: Right arm Patient Position: Sitting Pulse: 80 79 95 88 Resp: 22 19 14 16 Temp: 99 ??F (37.2 ??C) TempSrc: Oral SpO2: 90% 94% Weight: 233 lb 8 oz (105.9 kg) Height: 5' 8 (1.727 m) Presents to the emergency department with recurrent chest pain. Squad notes she had a transient narrow complex tachycardia or to arrival suggestive of either transient A. fib or a flutter. She is in sinus tach on arrival without evidence of persistent atrial fibrillation. Nonspecific changes on EKG. Given her persistent recurrent chest pain, troponins were obtained and they are elevated into ranges suggestive of a non-STEMI. Of note, they were normal 2 days ago. Plan to treat her as acute coronary syndrome/non-STEMI. She has been initiated on an unfractionated heparin bolus and intravenous infusion. I discussed the case by phone with Dr. Winchester who will see her in consultation today for ca rdiology. I have also discussed the case with the hospitalist for admission to [place]. ED Clinical Impression: 1. NSTEMI (non-ST elevated myocardial infarction) (HCC) Critical Care time Critical care was administered to the patient for greater than 30 minutes. This time excludes procedure time. Condition at Discharge/Transfer from Department: Lamont Olivares, Royce Hunter, am scribing for and in the presence of Ela Herbert MD. This chart was completed using voice recognition technology and may contain unintended errors Omaira Mathew Scribe 07/24/17 0859 IEla MD, personally performed the services described in this documentation, as scribed byParas , in my presence and it is accurate and complete. Ela Zayas MD 07/24/17 1644 documented in this encounter Miscellaneous Notes * Plan of Care - Manju Alvarez RN - 07/27/2017 2:49 PM EDT Problem: Safety: Fall Risk Goal: Patient will remain free of falls and injury Outcome: Progressing Non-skid footwear in place, bed alarm on, discussed with pt the importance of calling out for assistance to ambulate with pt verbalizing understanding. Bed in lowest position, call light within reach. * Plan of Care - Dane Sanchez RN - 07/27/2017 6:03 AM EDT Problem: Safety: Fall Risk Goal: Patient will remain free of falls and injury Outcome: Progressing All safety checks are in place, bed in lowest position, wheels locked and call light within reach. We will continue to monitor and intervene accordingly. * Utilization Review Notes - Pat Chapa RN - 07/26/2017 4:51 PM EDT Review 07/25/17: ADMIT TO TELE FROM ED IP (Order [id number]) CP, NSTEMI, HX CAD, SCHIZOAFFECTIVE D/O, DM, CHF, AFLUTTER S/P ABLATION, CVA TMAX 99.8, HR 48, RR 41, BP 88/42, 86% RA, 95% 2LNC, NOW ON RA +TROP, GLUC 323, CR 1.66, HGB 11.0 NPO IVF@150, HEPARIN IV CONTINUOUS PRIMARY 07/25- Discharge anticipated for 1-2days pending [facility] C[facility]IOLOG[facility] 07/24- Continue beta laquita, asa and Heparin Will plan for cardiac cath and possible PCI in am DC PENDING MEDICAL STABILITY/FURTHER MD INPUT Review 07/26/17: Troponin up to 0.07 POSITIVE FOR NSTEMI Had card cath on 07/25: Final result ? Ost RCA lesion 60% stenosed. ?? Mid RCA lesion 40% stenosed. ?? Mid LAD lesion 50% stenosed. Significant but not clearly flow limiting dz Ostial RCA of 50-70% - difficult to image due to angulation with FFR of 0.92 Mid LAD appearing 50% with FFR of 0.82 Normal LVEDP ?? Plan Will continue medical therapy Add Plavix for 1-3 months Reassess renal function in am * Utilization Review Notes - Alicia Perez, RN - 07/25/2017 1:17 PM EDT ADMIT TO TELE FROM ED IP (Order [id number]) CP, NSTEMI, HX CAD, SCHIZOAFFECTIVE D/O, DM, CHF, AFLUTTER S/P ABLATION, CVA TMAX 99.8, HR 48, RR 41, BP 88/42, 86% RA, 95% 2LNC, NOW ON RA +TROP, GLUC 323, CR 1.66, HGB 11.0 NPO IVF@150, HEPARIN IV CONTINUOUS PRIMARY 07/25- Discharge anticipated for 1-2days pending [facility] C[facility] 07/24- Continue beta laquita, asa and Heparin Will plan for cardiac cath and possible PCI in am DC PENDING MEDICAL STABILITY/FURTHER MD INPUT documented in this encounter Plan of Treatment Pending Results Name Type Priority Associated Diagnoses Date /Time ECG AND WAVEFORMS - TELEMETRY Point of Care Testing Routine 07/26/2017 7:24 PM EDT Scheduled Referrals Name Type Priority Associated Diagnoses Order Schedule AMB REFERRAL TO CARDIAC REHAB Outpatient Referral Routine One Time for 1 Occurrences starting 07/26/2017 until 07/26/2017 documented as of this encounter Goals Goal [...] Priority Date/Time Associated Diagnosis Comments SCANNED EKG 07/29/2017 10:38 PM EDT SCANNED RHYTHM STRIPS 07/29/2017 10:38 PM EDT GLUCOSE METER POC Routine 07/27/2017 12:45 PM EDT GLUCOSE METER POC Routine 07/27/2017 8:03 AM EDT ECG AND WAVEFORMS - TELEMETRY Routine 07/27/2017 7:22 AM EDT CBC Early AM 07/27/2017 6:40 AM EDT BASIC METABOLIC PANEL Early AM 07/27/2017 6:40 AM EDT ECG AND WAVEFORMS - TELEMETRY Routine 07/27/2017 5:46 AM EDT GLUCOSE METER POC Routine 07/26/2017 9:30 PM EDT ECG AND WAVEFORMS - TELEMETRY Routine 07/26/2017 7:24 PM EDT GLUCOSE METER POC Routine 07/26/2017 5:23 PM EDT GLUCOSE METER POC Routine 07/26/2017 12:06 PM EDT IP CONSULT TO CASE MANAGEMENT Routine 07/26/2017 11:41 AM EDT IP CONSULT TO NUTRITION Routine 07/26/2017 11:41 AM EDT CBC Early AM 07/26/2017 10:03 AM EDT BASIC METABOLIC PANEL Timed 07/26/2017 10:03 AM EDT SCANNED RHYTHM STRIPS 07/26/2017 9:14 AM EDT GLUCOSE METER POC Routine 07/26/2017 7:17 AM EDT GLUCOSE METER POC Routine 07/25/2017 11:00 PM EDT ECG AND WAVEFORMS - TELEMETRY Routine 07/25/2017 6:51 PM EDT GLUCOSE METER POC Routine 07/25/2017 5:32 PM EDT ECG AND WAVEFORMS - TELEMETRY Routine 07/25/2017 5:31 PM EDT ACTIVATED CLOTTING TIME LR POC Routine 07/25/2017 4:00 PM EDT LEFT VENTRICULOGRAM Routine 07/25/2017 3:38 PM EDT Chest pain, unspecified type CARDIAC PROCEDURE Routine 07/25/2017 3:38 PM EDT Chest pain, unspecified type CARDIAC PROCEDURE Routine 07/25/2017 3:38 PM EDT Chest pain, unspecified type SUPERVISOR BOILER REPAIR HEMODYNAMIC WAVEFORMS Routine 07/25/2017 2:48 PM EDT GLUCOSE METER POC Routine 07/25/2017 12:03 PM EDT GLUCOSE METER POC Routine 07/25/2017 8:28 AM EDT ECG AND WAVEFORMS - TELEMETRY Routine 07/25/2017 7:58 AM EDT HEPARIN ANTI-XA, UNF Early AM 07/25/2017 7:20 AM EDT CBC Early AM 07/25/2017 7:20 AM EDT BASIC METABOLIC PANEL Early AM 07/25/2017 7:20 AM EDT GLUCOSE METER POC Routine 07/24/2017 9:22 PM EDT HEPARIN ANTI-XA, UNF Timed 07/24/2017 8:57 PM EDT ECG AND WAVEFORMS - TELEMETRY Routine 07/24/2017 8:21 PM EDT GLUCOSE METER POC Routine 07/24/2017 6:05 PM EDT TROPONIN-T Timed 07/24/2017 3:54 PM EDT ECG AND WAVEFORMS - TELEMETRY Routine 07/24/2017 3:05 PM EDT GLUCOSE METER POC Routine 07/24/2017 2:07 PM EDT IP CONSULT TO PHARMACY STAT 07/24/2017 1:21 PM EDT IP CONSULT TO CARDIOLOGY Routine 07/24/2017 1:21 PM EDT Procedure Note - Mike Winchester MD - 07/24/2017 2:32 PM EDTThis note is in progress. CARDIOLOGY CONSULT Faby Palm Today's Date: 07/24/2017 Date of Admission: 07/24/2017 Primary Care Provider: Sharee Segovia ARNP [employer] Supervisor: Bello Devries Chief Complaint: Chest pain Referring MD: Ela Zayas HPI: Faby Palm 67 y/o female with a history of CAD, HTN, HLD, atrialflutter and prior CVA presents with chest pain that awoke her from sleepearly this morning. Describes as a pressure with radiation to bilateraljaw and left arm. She felt short of breath. Took 1 NTG with partialrelief. Called staff at assisted living and EMS called. Per notes, wentinto narrow complex tachycardia twice in EMS with spontaneous conversionback to NSR. She has been ST / NSR since arrival here. She reports feelingpalpitations during episode. Admits to intermittent chest and jaw painover the last month usually lasting an hour or so in duration. Unrelatedto activity but she is overall sedentary. Does note often occurs with stress . Seen in ED (07/22) with chest pain but she was adamant to leaveto buy cat food. Cardiac catheterization (10/2016) managed medically.Nonischemic stress (04/2017). ROS: Denies: Constitutional: fever, chills ENT: headaches, vertigo Cardiovascular: edema, orthopnea, lightheaded, syncope Pulmonary: cough, sputum production Gastrointestinal: abdominal pain, nausea, vomiting Genitourinary: change in bladder habits Integumentary: rash Hematologic/Lymphatic: abnormal bruising Allergic/Immunologic: hives Allergies Allergen Reactions ? ? Compazine [Prochlorperazine Edisylate] ? ? Medina ? ? Pentazocine Hcl ? ? Prochlorperazine Maleate ? ? Talwin [Pentazocine Lactate] Prior to Admission Medications Prior to Admission medications Medication Sig Start [...] Take 1 Tab by mouth daily. 04/14/17 YesSherif Bartholomew MD cloNIDine HCl (CATAPRES) 0.1 mg Oral Tablet Take 1 Tab by mouth 2 timesdaily. Hold for SBP <90 07/20/17 Yes Sridevi Calle APRN ferrous sulfate 325 mg (65 mg [...] (with breakfast). Yes Provider, Historical metoprolol (LOPRESSOR) 50 mg Oral Tablet TAKE 1 TABLET BY MOUTH 2 TIMESDAILY 01/26/17 Yes Joanna Pierce MD nitroGLYCERIN (NITROSTAT) 0.4 mg SL Tablet, Sublingual Place 1 Tab underthe tongue every 5 minutes as needed for Chest pain. 11/19/16 YesSharee Segovia ARNP RANEXA 1,000 mg Oral Tablet Sustained Release 12 hr TAKE ONE TABLET BYMOUTH EVERY 12 HOURS 06/28/17 Yes Joanna Pierce MD sertraline (ZOLOFT) 100 mg Oral Tablet Take 200 mg by mouth daily.Reported on 08/12/2016 Yes Provider, Historical traZODone (DESYREL) 300 mg Oral Tablet Take 1 Tab by mouth nightly. Patient taking differently: Take 150 mg by mouth nightly. 05/12/17 YesEric Gavin MD valACYclovir (VALTREX) 1 gram Oral Tablet Take by mouth 3 times daily.Yes Provider, Historical rqjdw-L-zsyuditwhejzj (ANTI-GAS ORAL) Take by mouth 3 times daily asneeded. Provider, Historical atorvastatin (LIPITOR) 20 mg Oral Tablet TAKE ONE TABLET BY MOUTH NIGHTLY03/24/17 Joanna Pierce MD insulin glargine (LANTUS) 100 unit/mL SubQ Solution Subcutaneous (Injectunder the skin) 28 Units every evening. 02/23/17 Eric Gavin MD inulin (FIBER CHOICE, INULIN,) 1.5 gram Oral Tablet, Chewable Take bymouth 2 times daily. Provider, Historical nystatin (MYCOSTATIN) Top Powder Apply topically 2 times daily.Provider, Historical pantoprazole (PROTONIX) 40 mg Oral Tablet, Delayed Release (E.C.) TAKE ONETABLET BY MOUTH ONCE DAILY 11/26/16 Joanna Pierce MD risperiDONE (RISPERDAL) 0.5 mg Oral Tablet Take 0.5 mg by mouth nightly.Provider, Historical Saccharomyces boulardii (FLORASTOR) 250 mg Oral Capsule Take 1 Cap bymouth 2 times daily. Patient not taking: Reported on 07/22/2017 05/12/17 Eric Gavin MD sucralfate (CARAFATE) 100 mg/mL Oral Suspension Take 1 g by mouth 4 timesdaily (before meals and nightly). Provider, Historical Past Medical History: Past Medical History: Diagnosis Date ? ? Atrial flutter (HCC) EPS, AFL Ablation on 12/31/[address] Tee ? ? CHF (congestive heart failure) (HCC) ? ? COPD (chronic obstructive pulmonary disease) (HCC) ? ? DDD (degenerative disc disease) ? ? Diabetes mellitus (HCC) ? ? Hypertension ? ? Intellectual disability 05/03/2017 ? ? KS (myocardial infarction) (HCC) ? ? RLS (restless legs syndrome) ? ? Schizoaffective disorder, depressive type ([facility]) 02/19/2017 ? ? Stroke (HCC) 2010 left side affected ? ? Suicide attempt ([facility]) ? ? Urinary incontinence ? ? Yeast infection recurrent Surgical History: Past Surgical History: Procedure Laterality Date ? [...] MD; Location: [facility]; Service: Endoscopy Family History: Family History Problem Relation Age of Onset ? ? Cancer Mother larnyx cancer ? ? Heart Disease Sister ? ? No Known Problems Son ? ? Seizures Daughter Social History: reports that she has never smoked. She has never used smokeless tobacco.She reports that she does not drink alcohol or use drugs. Labs: Lab Results Component Value Date HGB 13.6 07/24/2017 HCT 41.4 07/24/2017 PLT 167 07/24/2017 NA 136 07/24/2017 K 4.6 07/24/2017 CREATININE 1.17 07/24/2017 BUN 12 07/24/2017 TSH 2.900 05/03/2017 INR 1.12 (H) 07/16/2017 Vitals: Vitals: 07/24/17 1000 07/24/17 1200 07/24/17 1300 07/24/17 1415 BP: 97/50 115/64 139/79 BP Location: Patient Position: Pulse: 102 80 79 95 Resp: 29 22 19 14 Temp: TempSrc: SpO2: 90% Weight: Height: Body mass index is 37.25 kg/m??. TELEMETRY: NSR, 80's Physical Exam: GEN: Alert, pleasant and oriented x3. In no acute distress. HEENT: Sclerae anicteric. No xanthelasmas. EOM's intact. NECK: Supple. LUNGS: clear to auscultation. Chest wall nontender. HEART: RRR, no murmur, gallop, or rub. ABD: soft, nontender, positive bowel sounds EXT: no edema, +2 radial, +2 PT pulses NEURO: left hemiparesis Cardiac Catheterization (10/2016): Mid LAD 50-60% stenosis Ostial RCA 50% stenosis.200mcg of IC NTG administered and angiogramperformed. The ejection fraction is greater than 55% by visual estimate Plan Films reviewed by Dr. Wayne- med Rx. Echo (04/2017): LVEF 60-65%, no WMA, diastolic dysfunction, mild RV dil,mild TR, RVSP~31+JVP EKG: ST, rate 114, minor ST depression I, aVL, inferior / anterior QW Assessment: Chest pain - Troponins 0.02, 0.07 - Initial EKG with minor ST depression, not as evident on follow-uptracing Narrow Complex Tachycardia - Per EMS, no strips available for review CAD - Card cath (10/2016): 50-60% mid LAD, 50% ost RCA, pEF - managed medically - Nonischemic stress (04/2017) - On Imdur, Ranexa prior to admit Atrial Flutter - S/p AF ablation (2016) Hypertension - Elevated but has not received home medications today Dyslipidemia - On statin DM H/o CVA - Residual left hemiparesis Plan: - Follow troponin trend - DW - plans for cardiac catheterization in am. Procedure, benefits andrisks DWP. She verbalizes understanding and wishes to proceed. Plan fortomorrow with Dr. Winchester. - Monitor for arrhythmia / tachycardia on telemetry - Continue ASA, Metoprolol, Norvasc, Lasix, Imdur, Lisinopril, Clonidine,Lipitor Further input to follow-up from Dr. Ranulfo Santiago Joanna Hutchisonary, PLUMBING INSPECTOR 07/24/2017 Addendum: I personally interviewed and examined the above patient. I have reviewedthe PMH, Social Hx, and ROS. I agree with the outlined assessment andplan as noted. Pt presents with chest pain. Somewhat inconsistent with description.Recent ER visit for chest pain. Now comfortable but troponin found to bemildly elevated. EMS reports narrow complex tachycardia en route EKG: NSR. Possible age undetermined anterolateral KS with low voltage limbleads. Similar to prior tracing. Exam: GENERAL APPEARANCE: In no acute distress. Tangential with questions NECK: No JVD, No Bruit. Carotid upstrokes are full. RESPIRATORY: Normal breath sounds bilaterally. No rales or wheezing HEART: Normal S1, S2- No S3, S4. No Murmur, rub or gallop. ABDOMEN: Soft, nontender. Bowel sounds are normoactive. EXTREMITIES: No edema- No cyanosis. Good capillary refill. Assessment: Chest pain - vague descriptors but troponin elevation with recent ERassessment Narrow Complex Tachycardia- Per EMS, no strips available for review CAD - significant dz in LAD and RCA on cath 10/22 but felt not likely flowlimiting Atrial Flutter - S/p AF ablation (2015) Hypertension Dyslipidemia - On statin Diabetes H/o CVA - Residual left hemiparesis Schizoaffective d/o and Depression Plan: Continue beta laquita, asa and Heparin Will plan for cardiac cath and possible PCI in am Discussed the risks and benefits in depth with Faby Palm, including,but not limited to, risks of bleeding, infection, heart attack orstroke. EK EKG 12 LEAD STAT 07/24/2017 12:54 PM EDT TROPONIN-T STAT 07/24/2017 11:19 AM EDT TROPONIN-T STAT 07/24/2017 9:13 AM EDT CBC WITH DIFF STAT 07/24/2017 9:13 AM EDT BASIC METABOLIC PANEL STAT 07/24/2017 9:13 AM EDT EK EKG 12 LEAD STAT 07/24/2017 8:41 AM EDT documented in this encounter Results * SCANNED EKG (07/29/2017 10:38 PM EDT) Anatomical Region Laterality Modality Other 07/29/2017 10:3 8 PM EDT us Unknown Unknown IMG ECG ORDERABLES Final Result * SCANNED RHYTHM STRIPS (07/29/2017 10:38 PM EDT) Anatomical Region Laterality Modality Other 07/29/2017 10:3 8 PM EDT us Unknown Unknown IMG ECG ORDERABLES Final Result * (ABNORMAL) GLUCOSE METER POC (07/27/2017 12:45 PM EDT) [facility] Glucose Meter POC 185(H) 70 - 100 mg/dL 07/27/2017 12:47 PM EDT [facility] Sample Type Capillary 07/27/2017 12:47 PM EDT [facility] Patient Status Non-Critical Patient 07/27/2017 12:47 PM EDT [facility] Blood BLOOD SPECIMEN / Unknown 07/27/2017 12:45 PM EDT 07/27/2017 12:47 PM EDT us Mayo Omalley DO POINT OF CARE TEST ORDER DEBBIE Final Result [facility] [address] [place] [id number] * GLUCOSE METER POC (07/27/2017 8:03 AM EDT) [facility] Glucose Meter POC 99 70 - 100 mg/dL 07/27/2017 8:05 AM EDT [facility] Sample Type Capillary 07/27/2017 8:05 AM EDT [facility] Patient Status Non-Critical Patient 07/27/2017 8:05 AM EDT [facility] Blood BLOOD SPECIMEN / Unknown 07/27/2017 8:03 AM EDT 07/27/2017 8:05 AM EDT us Mayo Omalley DO POINT OF CARE TEST ORDER DEBBIE Final Result Performing Organization Address City/[facility]/ZIP Co de Phone Number [facility] [address] [place] [id number] * ECG AND WAVEFORMS - TELEMETRY (07/27/2017 7:22 AM EDT) [facility] ECG INTERPRET Sinus Bradycardia [facility] PROFILE GRINDER APPROVED Yes [facility] 07/27/2017 7:22 AM EDT Narrative [facility] - 07/27/2017 9:04 AM EDT ??See Clinical Report link for waveform capture us Unknown Provider POINT OF CARE CARDIOLOGY Final Result Performing Organization Address City/[facility]/ZIP Co de Phone Number [facility] [address] [place] [address] * (ABNORMAL) BASIC METABOLIC PANEL (07/27/2017 6:40 AM EDT) [facility] Sodium 144 136 - 145 mmol/L 07/27/2017 7:34 AM EDT [facility] Potassium 4.1 3.5 - 5.0 mmol/L 07/27/2017 7:34 AM EDT [facility] Chloride 104 98 - 107 mmol/L 07/27/2017 7:34 AM EDT [facility] Total CO2 30(H) 22 - 29 mmol/L 07/27/2017 7:34 AM EDT [facility] Anion Gap 10 7 - 16 mmol/L 07/27/2017 7:34 AM [facility] Calcium 9.0 8.8 - 10.2 mg/dL 07/27/2017 7:34 AM [facility] Glucose Lvl 116(H) 82 - 100 mg/dL 07/27/2017 7:34 AM [facility] BUN 27(H) 8 - 23 mg/dL 07/27/2017 7:34 AM [facility] Creatinine 1.59(H) 0.51 - 1.30 mg/dL 07/27/2017 7:34 AM [facility] GFR Afr Am 39 mL/min/1.7 3 m2 07/27/2017 7:34 AM [facility] GFR Non Afr Am 34 mL/min/1.7 3 m2 07/27/2017 7:34 AM [facility] Comment: GFR Afr Am and [...] Kidney Failure Blood VENOUS BLOOD / Unknown Capillary / Unknown 07/27/2017 6:40 AM EDT 07/27/2017 6:52 AM EDT Mayo Omalley DO CHEMISTRY ORDERABLES Fin al Result [facility] [address] [place] [address] * (ABNORMAL) CBC (07/27/2017 6:40 AM EDT) WBC 6.1 3.7 - 10.3 x10(3)/mcL 07/27/2017 7:17 AM EDT [facility] RBC 3.72(L) 3.90 - 5.20 x10(6)/mcL 07/27/2017 7:17 AM EDT [facility] Hgb 10.7(L) 11.2 - 15.7 g/dL 07/27/2017 7:17 AM EDT [facility] Hct 34.4 34.0 - 45.0 % 07/27/2017 7:17 AM EDT [facility] MCV 92.5 79.0 - 98.0 fL 07/27/2017 7:17 AM EDT [facility] MCH 28.8 26.0 - 32.0 pg 07/27/2017 7:17 AM EDT [facility] MCHC 31.1 30.7 - 35.5 g/dL 07/27/2017 7:17 AM EDT [facility] RDW 13.2 <=14.9 % 07/27/2017 7:17 AM EDT [facility] Platelet 182 155 - 369 x10(3)/mcL 07/27/2017 7:17 AM EDT [facility] MPV 11.5 8.8 - 12.5 fL 07/27/2017 7:17 AM EDT [facility] Blood VENOUS BLOOD / Unknown Capillary / Unknown 07/27/2017 6:40 AM EDT 07/27/2017 6:53 AM EDT Mayo Omalley DO HEMATOLOGY ORDERABLES Fi nal Result Performing Organization Address City/[facility]/ZIP Co de Phone Number [facility] [address] [place] [address] * ECG AND WAVEFORMS - TELEMETRY (07/27/2017 5:46 AM EDT) ECG INTERPRET Sinus Ankit with prolonged QT [facility] PROFILE GRINDER APPROVED Yes [facility] 07/27/2017 5:46 AM EDT Narrative [facility] - 07/27/2017 5:48 AM EDT ??See Clinical Report link for waveform capture us Unknown Provider POINT OF CARE CARDIOLOGY Final Result Performing Organization Address [facility] de Phone Number [facility] [address] [place] [address] * (ABNORMAL) GLUCOSE METER POC (07/26/2017 9:30 PM EDT) Glucose Meter POC 137(H) 70 - 100 mg/dL 07/26/2017 9:32 PM EDT [facility] Sample Type Capillary 07/26/2017 9:32 PM EDT [facility] Patient Status Non-Critical Patient 07/26/2017 9:32 PM EDT [facility] Blood BLOOD SPECIMEN / Unknown 07/26/2017 9:30 PM EDT 07/26/2017 9:32 PM EDT us Mayo Omalley DO POINT OF CARE TEST ORDER DEBBIE Final Result Performing Organization Address [facility] Co de Phone Number [facility] [address] [place] [address] * (ABNORMAL) GLUCOSE METER POC (07/26/2017 5:23 PM EDT) Glucose Meter POC 158(H) 70 - 100 mg/dL 07/26/2017 5:25 PM EDT [facility] Sample Type Capillary 07/26/2017 5:25 PM EDT [facility] Patient Status Non-Critical Patient 07/26/2017 5:25 PM EDT [facility] Blood BLOOD SPECIMEN / Unknown 07/26/2017 5:23 PM EDT 07/26/2017 5:25 PM EDT Mayo Omalley DO POINT OF CARE TEST ORDER DEBBIE Final Result Performing Organization Address [facility]/[place] [address] * (ABNORMAL) GLUCOSE METER POC (07/26/2017 12:06 PM EDT) [facility] Glucose Meter POC 122(H) 70 - 100 mg/dL 07/26/2017 12:07 PM EDT [facility] Sample Type Capillary 07/26/2017 12:07 PM EDT [facility] Patient Status Non-Critical Patient 07/26/2017 12:07 PM EDT [facility] Blood BLOOD SPECIMEN / Unknown 07/26/2017 12:06 PM EDT 07/26/2017 12:07 PM EDT Mayo Omalley DO POINT OF CARE TEST ORDER DEBBIE Final Result Performing Organization Address [facility] [place] [place] [address] * (ABNORMAL) BASIC METABOLIC PANEL (07/26/2017 10:03 AM EDT) [facility] Sodium 138 136 - 145 mmol/L 07/26/2017 10:40 AM EDT [facility] Potassium 4.5 3.5 - 5.0 mmol/L 07/26/2017 10:40 AM EDT [facility] Chloride 101 98 - 107 mmol/L 07/26/2017 10:40 AM EDT [facility] Total CO2 27 22 - 29 mmol/L 07/26/2017 10:40 AM EDT [facility] Anion Gap 10 7 - 16 mmol/L 07/26/2017 10:40 AM EDT [facility] Calcium 9.0 8.8 - 10.2 mg/dL 07/26/2017 10:40 AM [facility] Glucose Lvl 155(H) 82 - 100 mg/dL 07/26/2017 10:40 AM [facility] BUN 22 8 - 23 mg/dL 07/26/2017 10:40 AM [facility] Creatinine 1.59(H) 0.51 - 1.30 mg/dL 07/26/2017 10:40 AM [facility] GFR Afr Am 39 mL/min/1.7 3 m2 07/26/2017 10:40 AM [facility] GFR Non Afr Am 34 mL/min/1.7 3 m2 07/26/2017 10:40 AM [facility] Comment: GFR Afr Am and [...] VENOUS BLOOD / Unknown Venipuncture / Unknown 07/26/2017 10:03 AM EDT 07/26/2017 10:11 AM EDT Mike Winchester MD CHEMISTRY ORDERABLES Fi nal Result [facility] [address] [place] [address] * (ABNORMAL) CBC (07/26/2017 10:03 AM EDT) WBC 6.3 3.7 - 10.3 x10(3)/mcL 07/26/2017 10:24 AM EDT [facility] RBC 3.66(L) 3.90 - 5.20 x10(6)/mcL 07/26/2017 10:24 AM EDT [facility] Hgb 10.6(L) 11.2 - 15.7 g/dL 07/26/2017 10:24 AM EDT [facility] Hct 33.7(L) 34.0 - 45.0 % 07/26/2017 10:24 AM EDT [facility] MCV 92.1 79.0 - 98.0 fL 07/26/2017 10:24 AM EDT [facility] MCH 29.0 26.0 - 32.0 pg 07/26/2017 10:24 AM EDT [facility] MCHC 31.5 30.7 - 35.5 g/dL 07/26/2017 10:24 AM EDT [facility] RDW 13.3 <=14.9 % 07/26/2017 10:24 AM EDT [facility] Platelet 181 155 - 369 x10(3)/mcL 07/26/2017 10:24 AM EDT [facility] MPV 11.7 8.8 - 12.5 fL 07/26/2017 10:24 AM EDT [facility] Blood VENOUS BLOOD / Unknown Venipuncture / Unknown 07/26/2017 10:03 AM EDT 07/26/2017 10:11 AM EDT us Mayo Omalley DO HEMATOLOGY [place] [address] * SCANNED RHYTHM STRIPS (07/26/2017 9:14 AM EDT) Anatomical Region Laterality Modality Other 07/26/2017 9:14 AM EDT us Unknown Unknown IMG ECG ORDERABLES Final Result * (ABNORMAL) GLUCOSE METER POC (07/26/2017 7:17 AM EDT) Glucose Meter POC 128(H) 70 - 100 mg/dL 07/26/2017 7:19 AM EDT [facility] Sample Type Capillary 07/26/2017 7:19 AM EDT [facility] Patient Status Non-Critical Patient 07/26/2017 7:19 AM EDT [facility] Blood BLOOD SPECIMEN / Unknown 07/26/2017 7:17 AM EDT 07/26/2017 7:19 AM EDT us Mayo Omalley DO POINT OF CARE TEST ORDER DEBBIE Final Result Performing Organization Address City/[facility] [place] [place] [address] * (ABNORMAL) GLUCOSE METER POC (07/25/2017 11:00 PM EDT) Glucose Meter POC 138(H) 70 - 100 mg/dL 07/25/2017 11:01 PM EDT [facility] Sample Type Capillary 07/25/2017 11:01 PM EDT [facility] Patient Status Non-Critical Patient 07/25/2017 11:01 PM EDT [facility] Blood BLOOD SPECIMEN / Unknown 07/25/2017 11:00 PM EDT 07/25/2017 11:01 PM EDT us Mayo Omalley DO POINT OF CARE TEST ORDER DEBBIE Final Result Performing Organization Address [facility]/ZIP Co de Phone Number [facility] [address] [place] [phone] * ECG AND WAVEFORMS - TELEMETRY (07/25/2017 6:51 PM EDT) ECG INTERPRET Sinus Bradycardia [facility] PROFILE GRINDER APPROVED Yes [facility] 07/25/2017 6:51 PM EDT Narrative [facility] - 07/25/2017 6:56 PM EDT *PVC* ??AK 0.19 ??QRS 0.07 ??QT 0.43 ??See Clinical Report link for waveform capture us Unknown Provider POINT OF CARE CARDIOLOGY Final Result Performing Organization Address [facility] Co de Phone Number [facility] [address] [place] [address] * GLUCOSE METER POC (07/25/2017 5:32 PM EDT) [facility] Glucose Meter POC 90 70 - 100 mg/dL 07/25/2017 5:33 PM EDT [facility] Sample Type Capillary 07/25/2017 5:33 PM EDT [facility] Patient Status Non-Critical Patient 07/25/2017 5:33 PM EDT [facility] Blood BLOOD SPECIMEN / Unknown 07/25/2017 5:32 PM EDT 07/25/2017 5:33 PM EDT Mayo Omalley DO POINT OF CARE TEST ORDER DEBBIE Final Result Performing Organization Address [facility] Co de Phone Number [facility] [address] [place] [address] * ECG AND WAVEFORMS - TELEMETRY (07/25/2017 5:31 PM EDT) ECG INTERPRET Sinus Bradycardia [facility] PROFILE GRINDER APPROVED Yes [facility] 07/25/2017 5:31 PM EDT Narrative [facility] - 07/25/2017 5:42 PM EDT *PVC* ??AK 0.14 ??QRS 0.07 ??QT 0.48 ??See Clinical Report link for waveform capture us Unknown Provider POINT OF CARE CARDIOLOGY Final Result Performing Organization Address City/[facility]/ZIP Co de Phone Number [facility] [address] [place] [address] * (ABNORMAL) ACTIVATED CLOTTING TIME LR POC (07/25/2017 4:00 PM EDT) ACT-LR 176(H) 89 - 169 second(s) 07/25/2017 4:04 PM EDT [facility] Blood BLOOD SPECIMEN / Unknown 07/25/2017 4:00 PM EDT 07/25/2017 4:03 PM EDT us Mayo Omalley DO POINT OF CARE TEST ORDER DEBBIE Final Result Performing Organization Address [facility] Co de Phone Number [facility] [address] [place] [address] * CORONARY ANGIOGRAM (COR/LHC/LV GRAM, CARDIAC CATHETERIZATION), INTRAVASCULAR DOPPLER VELOCITY, LEFTVENTRICULOGRAM (07/25/2017 3:38 PM EDT) Narrative [facility] - 07/25/2017 3:42 PM EDT ?? Ost RCA lesion 60% stenosed. ?? Mid RCA lesion 40% stenosed. ?? Mid LAD lesion 50% stenosed. Significant but not clearly flow limiting dz Ostial RCA of 50-70% - difficult to image due to angulation with FFR of 0.92 Mid LAD appearing 50% with FFR of 0.82 Normal LVEDP Coronary Findings Diagnostic Dominance: Right Left Main: The vessel was visualized by angiography, is large and is angiographically normal. Left Anterior Descending: The vessel is large. There is moderate diffuse disease throughout the vessel. Mid LAD lesion 50% stenosed. The lesion is located at a bifurcation. Pressure wire/FFR was performed on the lesion. FFR: 0.82. Maximum hyperemia was achieved through IV adenosine LAD lesion is eccentric at junction of diagonal and septal trifurcation appearing about 50% Left Circumflex: The vessel is large. The vessel exhibits minimal luminal irregularities. Right Coronary Artery: The vessel was visualized by angiography and is large. Ost RCA lesion 60% stenosed. The lesion is discrete. The lesion was not previously treated. Pressure wire/FFR was performed on the lesion. FFR: 0.92. Ostial RCA appears 50- 70% but difficult to obtain coaxial image. Mid RCA lesion 40% stenosed. Intervention No interventions have been documented. Left Ventricle The patient's LV Systolic pressure is normal. The patient's LV End Diastolic pressure is normal. LVEDP /post-A wave : 15 mmHg No LV gram was performed Pamela Oropeza APRN CARDIAC CATH ORDERABLES Fin al Result Performing Organization Address City/[facility]/ZIP Co de Phone Number [facility] * SUPERVISOR BOILER REPAIR HEMODYNAMIC WAVEFORMS (07/25/2017 2:48 PM EDT) 07/25/2017 2:48 PM EDT Pamela Oropeza APRN CARDIAC CATH ORDERABLES Fin al Result Performing Organization Address [facility] Co de Phone Number [facility] [address] [place] [address] * (ABNORMAL) GLUCOSE METER POC (07/25/2017 12:03 PM EDT) [facility] Glucose Meter POC 144(H) 70 - 100 mg/dL 07/25/2017 12:04 PM EDT [facility] Sample Type Capillary 07/25/2017 12:04 PM EDT [facility] Patient Status Non-Critical Patient 07/25/2017 12:04 PM EDT [facility] Blood BLOOD SPECIMEN / Unknown 07/25/2017 12:03 PM EDT 07/25/2017 12:04 PM EDT Mayo Omalley DO POINT OF CARE TEST ORDER DEBBIE Final Result Performing Organization Address [facility] Co de Phone Number [facility] [address] [place] [address] * (ABNORMAL) GLUCOSE METER POC (07/25/2017 8:28 AM EDT) [facility] Glucose Meter POC 159(H) 70 - 100 mg/dL 07/25/2017 8:36 AM EDT [facility] Sample Type Capillary 07/25/2017 8:36 AM EDT [facility] Patient Status Non-Critical Patient 07/25/2017 8:36 AM EDT [facility] Blood BLOOD SPECIMEN / Unknown 07/25/2017 8:28 AM EDT 07/25/2017 8:36 AM EDT us Mayo Omalley DO POINT OF CARE TEST ORDER DEBBIE Final Result [facility] [address] [place] [address] * ECG AND WAVEFORMS - TELEMETRY (07/25/2017 7:58 AM EDT) [facility] ECG INTERPRET Sinus Bradycardia [facility] PROFILE GRINDER APPROVED Yes [facility] 07/25/2017 7:58 AM EDT Narrative [facility] - 07/25/2017 8:01 AM EDT ??See Clinical Report link for waveform capture us Unknown Provider POINT OF CARE CARDIOLOGY Final Result Performing Organization Address [facility]/ZIP Co de Phone Number [facility] [address] [place] [address] * (ABNORMAL) BASIC METABOLIC PANEL (07/25/2017 7:20 AM EDT) [facility] Sodium 138 136 - 145 mmol/L 07/25/2017 8:23 AM EDT [facility] Potassium 4.4 3.5 - 5.0 mmol/L 07/25/2017 8:23 AM EDT [facility] Chloride 100 98 - 107 mmol/L 07/25/2017 8:23 AM EDT [facility] Total CO2 27 22 - 29 mmol/L 07/25/2017 8:23 AM EDT [facility] Anion Gap 11 7 - 16 mmol/L 07/25/2017 8:23 AM EDT [facility] Calcium 8.9 8.8 - 10.2 mg/dL 07/25/2017 8:23 AM [facility] Glucose Lvl 152(H) 82 - 100 mg/dL 07/25/2017 8:23 AM [facility] BUN 20 8 - 23 mg/dL 07/25/2017 8:23 AM [facility] Creatinine 1.66(H) 0.51 - 1.30 mg/dL 07/25/2017 8:23 AM [facility] GFR Afr Am 37 mL/min/1.7 3 m2 07/25/2017 8:23 AM [facility] GFR Non Afr Am 32 mL/min/1.7 3 m2 07/25/2017 8:23 AM [facility] Comment: GFR Afr Am and [...] Kidney Failure Blood VENOUS BLOOD / Unknown Capillary / Unknown 07/25/2017 7:20 AM EDT 07/25/2017 7:41 AM EDT Mayo Omalley DO CHEMISTRY ORDERABLES Fin al Result Performing Organization Address [facility] [place] [address] * HEPARIN ANTI-XA, UNF (07/25/2017 7:20 AM EDT) Heparin Level UNF 0.34 0.30 - 0.70 IU/mL 07/25/2017 7:52 AM EDT [facility] Comment: The therapeutic range for heparinized patients monitored by the Heparin Lvl UF is 0.30-0.70 IU/mL. Blood VENOUS BLOOD / Unknown Capillary / Unknown 07/25/2017 7:20 AM EDT 07/25/2017 7:40 AM EDT us Ela Zayas MD HEMATOLOGY ORDERABLES Final Result Performing Organization Address [facility] [place] [address] * (ABNORMAL) CBC (07/25/2017 7:20 AM EDT) WBC 9.5 3.7 - 10.3 x10(3)/mcL 07/25/2017 7:46 AM EDT [facility] RBC 3.73(L) 3.90 - 5.20 x10(6)/mcL 07/25/2017 7:46 AM EDT [facility] Hgb 11.0(L) 11.2 - 15.7 g/dL 07/25/2017 7:46 AM EDT [facility] Hct 34.4 34.0 - 45.0 % 07/25/2017 7:46 AM EDT [facility] MCV 92.2 79.0 - 98.0 fL 07/25/2017 7:46 AM EDT [facility] MCH 29.5 26.0 - 32.0 pg 07/25/2017 7:46 AM EDT [facility] MCHC 32.0 30.7 - 35.5 g/dL 07/25/2017 7:46 AM EDT [facility] RDW 13.5 <=14.9 % 07/25/2017 7:46 AM EDT [facility] Platelet 177 155 - 369 x10(3)/mcL 07/25/2017 7:46 AM EDT [facility] MPV 11.9 8.8 - 12.5 fL 07/25/2017 7:46 AM EDT [facility] Blood VENOUS BLOOD / Unknown Capillary / Unknown 07/25/2017 7:20 AM EDT 07/25/2017 7:40 AM EDT Mayo Omalley DO HEMATOLOGY ORDERABLES Fi nal Result Performing Organization Address [facility]/ZIP Co de Phone Number [place] [phone] * (ABNORMAL) GLUCOSE METER POC (07/24/2017 9:22 PM EDT) Glucose Meter POC 173(H) 70 - 100 mg/dL 07/24/2017 9:23 PM EDT [facility] Sample Type Capillary 07/24/2017 9:23 PM EDT [facility] Patient Status Non-Critical Patient 07/24/2017 9:23 PM EDT [facility] Blood BLOOD SPECIMEN / Unknown 07/24/2017 9:22 PM EDT 07/24/2017 9:23 PM EDT us Mayo Omalley DO POINT OF CARE TEST ORDER DEBBIE Final Result Performing Organization Address [facility]/ZIP Co de Phone Number [address] [phone] * (ABNORMAL) HEPARIN ANTI-XA, UNF (07/24/2017 8:57 PM EDT) Heparin Level UNF 0.22(L) 0.30 - 0.70 IU/mL 07/24/2017 9:41 PM EDT [facility] Comment: The therapeutic range for heparinized patients monitored by the Heparin Lvl UF is 0.30-0.70 IU/mL. Blood VENOUS BLOOD / Unknown Venipuncture / Unknown 07/24/2017 8:57 PM EDT 07/24/2017 9:02 PM EDT Mayo Omalley DO HEMATOLOGY ORDERABLES Fi nal Result Performing Organization Address City/[facility]/ZIP Co de Phone Number [facility] [address] [place] [address] * ECG AND WAVEFORMS - TELEMETRY (07/24/2017 8:21 PM EDT) [facility] Signature ECG INTERPRET NSR [facility] PROFILE GRINDER APPROVED Yes [facility] 07/24/2017 8:21 PM EDT Narrative [facility] - 07/24/2017 9:12 PM EDT ??See Clinical Report link for waveform capture us Unknown Provider POINT OF CARE CARDIOLOGY Final Result Performing Organization Address [facility] Co de Phone Number [facility] [address] [place] [address] * (ABNORMAL) GLUCOSE METER POC (07/24/2017 6:05 PM EDT) Glucose Meter POC 183(H) 70 - 100 mg/dL 07/24/2017 6:06 PM EDT [facility] Sample Type Capillary 07/24/2017 6:06 PM EDT [facility] Patient Status Non-Critical Patient 07/24/2017 6:06 PM EDT [facility] Blood BLOOD SPECIMEN / Unknown 07/24/2017 6:05 PM EDT 07/24/2017 6:06 PM EDT Mayo Omalley DO POINT OF CARE TEST ORDER DEBBIE Final Result Performing Organization Address [facility] Co de Phone Number [facility] [address] [place] [address] * (ABNORMAL) TROPONIN-T (07/24/2017 3:54 PM EDT) [facility] Troponin-T 0.10(H) <0.01 ng/mL 07/24/2017 4:19 PM EDT [facility] Blood CAPILLARY BLOOD / Unknown Capillary / Unknown 07/24/2017 3:54 PM EDT 07/24/2017 3:59 PM EDT Narrative [facility] - 07/24/2017 4:19 PM EDT Ingestion of charles doses of biotin (>5 mg/day) taken within 8 hours of drawing blood sample can interfere with this immunoassay test. us Ela Zayas MD CHEMISTRY ORDERABLES Final R esult [facility] [address] [place] [address] * ECG AND WAVEFORMS - TELEMETRY (07/24/2017 3:05 PM EDT) [facility] ECG INTERPRET NSR [facility] PROFILE GRINDER APPROVED Yes [facility] 07/24/2017 3:05 PM EDT Narrative [facility] - 07/24/2017 3:15 PM EDT ??See Clinical Report link for waveform capture us Unknown Provider POINT OF CARE CARDIOLOGY Final Result Performing Organization Address City/[facility]/ZIP Co de Phone Number [facility] [address] [place] [address] * (ABNORMAL) GLUCOSE METER POC (07/24/2017 2:07 PM EDT) [facility] Glucose Meter POC 243(H) 70 - 100 mg/dL 07/24/2017 2:08 PM EDT [facility] Sample Type Capillary 07/24/2017 2:08 PM EDT [facility] Patient Status Non-Critical Patient 07/24/2017 2:08 PM EDT [facility] Blood BLOOD SPECIMEN / Unknown 07/24/2017 2:07 PM EDT 07/24/2017 2:08 PM EDT us Mayo Omalley DO POINT OF CARE TEST ORDER DEBBIE Final Result [facility] [address] [place] [address] * EK EKG 12 LEAD (07/24/2017 12:54 PM EDT) Anatomical Region Laterality Modality Electrocardiogra phy 07/24/2017 1:10 PM EDT Impressions 07/24/2017 8:21 PM EDT ? Stationary ECG Study ?[facility] ? Interpretive Statements ? SINUS RHYTHM LOW QRS VOLTAGE IN PRECORDIAL LEADS ANTERIOR MYOCARDIAL INFARCTION, PROBABLY OLD INFERIOR MYOCARDIAL INFARCTION, PROBABLY OLD No significant change except for rate Electronically Signed On 07-24-2017 20:21:08 EDT by Ashwin Hoffmann MD Narrative Procedure Note Ashwin Hoffmann MD - 07/24/2017 IMPRESSION [address] ECG Study [facility] Interpretive Statements SINUS RHYTHM LOW QRS VOLTAGE IN PRECORDIAL LEADS ANTERIOR MYOCARDIAL INFARCTION, PROBABLY OLD INFERIOR MYOCARDIAL INFARCTION, PROBABLY OLD No significant change except for rate Electronically Signed On 07-24-2017 20:21:08 EDT by Ashwin Hoffmann MD Ela Zayas MD IMG ECG ORDERABLES Final Res ult * (ABNORMAL) TROPONIN-T (07/24/2017 11:19 AM EDT) Pathologist [facility] Troponin-T 0.07(H) <0.01 ng/mL 07/24/2017 11:41 AM EDT [facility] Blood VENOUS BLOOD / Unknown Venipuncture / Unknown 07/24/2017 11:19 AM EDT 07/24/2017 11:22 AM EDT Narrative [facility] - 07/24/2017 11:41 AM EDT Ingestion of charles doses of biotin (>5 mg/day) taken within 8 hours of drawing blood sample can interfere with this immunoassay test. Ela Zayas MD CHEMISTRY ORDERABLES Final R esult Performing Organization Address [facility] [place] [place] [address] * (ABNORMAL) TROPONIN-T (07/24/2017 9:13 AM EDT) [facility] Troponin-T 0.02(H) <0.01 ng/mL 07/24/2017 9:39 AM EDT [facility] Blood VENOUS BLOOD / Unknown Venipuncture / Unknown 07/24/2017 9:13 AM EDT 07/24/2017 9:17 AM EDT Narrative [facility] - 07/24/2017 9:39 AM EDT Ingestion of charles doses of biotin (>5 mg/day) taken within 8 hours of drawing blood sample can interfere with this immunoassay test. Ela Zayas MD CHEMISTRY ORDERABLES Final R esult Performing Organization Address [facility] [place] [address] * (ABNORMAL) BASIC METABOLIC PANEL (07/24/2017 9:13 AM EDT) Sodium 136 136 - 145 mmol/L 07/24/2017 9:35 AM [facility] Potassium 4.6 3.5 - 5.0 mmol/L 07/24/2017 9:35 AM [facility] Chloride 99 98 - 107 mmol/L 07/24/2017 9:35 AM [facility] Total CO2 24 22 - 29 mmol/L 07/24/2017 9:35 AM [facility] Anion Gap 13 7 - 16 mmol/L 07/24/2017 9:35 AM [facility] Calcium 9.0 8.8 - 10.2 mg/dL 07/24/2017 9:35 AM [facility] Glucose Lvl 323(H) 82 - 100 mg/dL 07/24/2017 9:35 AM [facility] BUN 12 8 - 23 mg/dL 07/24/2017 9:35 AM [facility] Creatinine 1.17 0.51 - 1.30 mg/dL 07/24/2017 9:35 AM [facility] GFR Afr Am 56 mL/min/1.7 3 m2 07/24/2017 9:35 AM [facility] GFR Non Afr Am 49 mL/min/1.7 3 m2 07/24/2017 9:35 AM [facility] Comment: GFR Afr Am and GFR Non [...] VENOUS BLOOD / Unknown Venipuncture / Unknown 07/24/2017 9:13 AM EDT 07/24/2017 9:17 AM EDT us Ela Zayas MD CHEMISTRY ORDERABLES Final R esult Performing Organization Address City/State/[facility] Co de Phone Number [facility] [address] [place] [address] * (ABNORMAL) CBC WITH DIFF (07/24/2017 9:13 AM EDT) WBC 10.6 4.0 - 11.0 x10(3)/mcL 07/24/2017 9:21 AM EDT [facility] RBC 4.66 3.80 - 5.10 x10(6)/mcL 07/24/2017 9:21 AM EDT [facility] Hgb 13.6 12.0 - 15.6 g/dL 07/24/2017 9:21 AM EDT [facility] Hct 41.4 35.7 - 45.9 % 07/24/2017 9:21 AM EDT [facility] MCV 88.9 82.5 - 99.8 fL 07/24/2017 9:21 AM EDT [facility] MCH 29.2 27.0 - 34.3 pg 07/24/2017 9:21 AM EDT [facility] MCHC 32.8 32.1 - 35.3 g/dL 07/24/2017 9:21 AM EDT [facility] RDW 13.8 11.5 - 15.0 % 07/24/2017 9:21 AM EDT [facility] Platelet 167 144 - 423 x10(3)/Health system 07/24/2017 9:21 AM EDT [facility] MPV 10.2 6.8 - 10.8 fL 07/24/2017 9:21 AM EDT [facility] Neut Percent 87.9 % 07/24/2017 9:21 AM EDT [facility] Lymph Percent 6.2 % 07/24/2017 9:21 AM EDT [facility] Haakon Percent 5.4 % 07/24/2017 9:21 AM EDT [facility] Eos Percent 0.1 % 07/24/2017 9:21 AM EDT [facility] Baso Percent 0.4 % 07/24/2017 9:21 AM EDT [facility] Neut # 9.3(H) 1.8 - 7.7 x10(3)/Health system 07/24/2017 9:21 AM EDT [facility] Lymph # 0.7 0.6 - 4.8 x10(3)/Health system 07/24/2017 9:21 AM EDT [facility] Haakon # 0.6 0.0 - 1.3 x10(3)/Health system 07/24/2017 9:21 AM EDT [facility] Eos# 0.0 0.0 - 0.5 x10(3)/Health system 07/24/2017 9:21 AM EDT [facility] Baso # 0.0 0.0 - 0.2 x10(3)/Health system 07/24/2017 9:21 AM EDT [facility] Blood VENOUS BLOOD / Unknown Venipuncture / Unknown 07/24/2017 9:13 AM EDT 07/24/2017 9:17 AM EDT us Ela Zayas MD HEMATOLOGY ORDERABLES Final Result [facility] [address] [place] [address] * EK EKG 12 LEAD (07/24/2017 8:41 AM EDT) Anatomical Region Laterality Modality Electrocardiogra phy 07/24/2017 8:33 AM EDT Impressions 07/24/2017 8:35 PM EDT ? Stationary ECG Study ?[facility] ? Interpretive Statements ? SINUS TACHYCARDIA WITH OCCASIONAL ECTOPIC PREMATURE COMPLEXES Ventricular premature beats ANTERIOR MYOCARDIAL INFARCTION, PROBABLY OLD INFERIOR MYOCARDIAL INFARCTION, OF INDETERMINATE AGE No significant change except for rate Electronically Signed On 07-24-2017 20:35:03 EDT by Ashwin Hoffmann MD Narrative Procedure Note Ashwin Hoffmann MD - 07/24/2017 IMPRESSION Stationary ECG Study [facility] Interpretive Statements SINUS TACHYCARDIA WITH OCCASIONAL ECTOPIC PREMATURE COMPLEXES Ventricular premature beats ANTERIOR MYOCARDIAL INFARCTION, PROBABLY OLD INFERIOR MYOCARDIAL INFARCTION, OF INDETERMINATE AGE No significant change except for rate Electronically Signed On 07-24-2017 20:35:03 EDT by Ashwin Hoffmann MD us Ela Zayas MD IMG ECG ORDERABLES Final Res ult documented in this encounter Visit Diagnoses Diagnosis Acute chest pain- Primary Chest pain, unspecified NSTEMI (non-ST elevated myocardial infarction) (HCC) Acute myocardial infarction, subendocardial infarction, episode of care unspecified Chest pain, unspecified type History of CVA (cerebrovascular accident) Transient ischemic attack (TIA), and cerebral infarction without residual deficits 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 3 chronic kidney disease, with long-term current use of insulin History of CVA (cerebrovascular accident) Transient ischemic attack (TIA), and cerebral infarction without residual deficits Chronic diastolic CHF (congestive heart failure) ([facility]) Intellectual disability Unspecified intellectual disabilities Schizoaffective disorder, depressive type ([facility]) Schizoaffective disorder, unspecified condition 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 S/P ablation of atrial flutter Other postprocedural status Chest pain Chest pain, unspecified Chest pain, unspecified type documented in this encounter Admitting Diagnoses Diagnosis Chest pain Chest pain, unspecified documented in this encounter Administered Medications Inactive Administered Medications - up to 1 most recent administrations Medication Order MAR Action Action Date Dose Rate Site 0.9 % NaCl infusion Intravenous, at 150 mL/hr, CONTINUOUS, Starting on 07/24/17 at 1700, Until 07/25/17 at 1544, Start 2 hours prior to procedure at 150 mL/hr. If Sodium Bicarbonate drip to infuse, 0.9% Normal Saline to infuse at Keep Open Rate., Pre-op (Floor Meds) New Bag 07/25/2017 11:10 AM EDT 1,000 mL 150 mL/hr 0.9 % NaCl infusion Intravenous, at 150 mL/hr, CONTINUOUS, Starting on 07/25/17 at 1545, Until 07/25/17 at 1944, If infusion complete, infuse 0.9% Normal Saline at KOR until sheath is removed., Post-op Rate/Dose Verify 07/25/2017 3:45 PM EDT 150 mL/hr acetaminophen (TYLENOL) tablet 650 mg 650 mg, Oral, EVERY 4 HOURS PRN, Starting on 07/25/17 at 1544, Until 07/27/17 at 2212, Pain, Maximum adult dose of acetaminophen is 4000 mg from all sources in 24 hours. , Post-op amLODIPine (NORVASC) tablet 2.5 mg 2.5 mg, Oral, DAILY, First dose on 07/24/17 at 1530, Until Discontinued Given 07/27/2017 8:12 AM EDT 2.5 mg ARIPiprazole (ABILIFY) tablet 30 mg 30 mg, Oral, DAILY, First dose on Wed07/24/17 at 1530, Until Discontinued Given 07/27/2017 8:10 AM EDT 30 mg aspirin chewable tablet 324 mg 324 mg, Oral, ONCE, 1 dose, On Wed07/24/17 at 0845 Given 07/24/2017 8:47 AM EDT 324 mg aspirin chewable tablet 81 mg 81 mg, Oral, DAILY, First dose on Wed07/24/17 at 1530, Until Discontinued Given 07/27/2017 8:10 AM EDT 81 mg atorvastatin (LIPITOR) tablet 20 mg 20 mg, Oral, NIGHTLY, First dose on Wed07/24/17 at 2100, Until Discontinued Given 07/26/2017 9:19 PM EDT 20 mg atropine injection 0.5 mg 0.5 mg, Intravenous, PRN, Starting on Wed07/25/17 at 1532, Until Wed07/27/17 at 2212, Symptomatic bradycardia, emergency treatment, Administer IV push for symptomatic bradycardia, may repeat every 3-5 minutes to total of 3 mg. cloNIDine HCl (CATAPRES) tablet 0.1 mg 0.1 mg, Oral, 2 TIMES DAILY, First dose on Wed07/24/17 at 2100, Until Discontinued Given 07/27/2017 8:11 AM EDT 0.1 mg clopidogrel (PLAVIX) tablet 75 mg 75 mg, Oral, DAILY, First dose on Wed07/26/17 at 0900, Until Discontinued, Post-op Given 07/27/2017 8:11 AM EDT 75 mg dextrose 50 % solution 25 g 25 g, Intravenous, PRN, Starting on Wed07/25/17 at 1532, Until Wed07/27/17 at 2212, Low blood sugar, for emergency treatment of profound hypoglycemia, May repeat in 15 minutes. VESICANT dextrose 50 % solution 25 mL 25 mL, Intravenous, PRN, Starting on Wed07/24/17 at 1516, Until Wed07/27/17 at 2212, Low blood sugar, If FSBS less than 70 mg/dl and patient cannot take orally, Check FSBS every 30 minutes and repeat 25 mL of D50 IV push and notify physician if FSBS less than 70 mg/dL VESICANT EPINEPHrine injection 1 mg 1 mg, Intravenous, PRN, Starting on Wed18 at 1532, Until Wed07/27/17 at 2212, Ventricular fibrillation, Emergency order for V-FIB or Pulseless V-TACH, Emergency order for V-FIB or Pulseless V-TACH, Asystole, PEA. VESICANT fUROsemide (LASix) tablet 20 mg 20 mg, Oral, DAILY, First dose on [facility] 07/24/17 at 1530, Until Discontinued Given 07/27/2017 8:12 AM EDT 20 mg glipiZIDE (GLUCOTROL) tablet 10 mg 10 mg, Oral, 2 TIMES DAILY WITH MEALS, First dose on [facility] 07/24/17 at 1800, Until Discontinued Given 07/27/2017 8:11 AM EDT 10 mg glucagon (human recombinant) (GLUCAGEN) injection 1 mg 1 mg, Intramuscular, PRN, Starting on [facility] 07/24/17 at 1516, Until Wed07/27/17 at 2212, Low blood sugar, If FSBS less than 70 mg/dl, patient cannot take orally and without IV access, If patient is without IV access, give Glucagon 1 mg Intramuscularly, insert IV and call physician. heparin (porcine) injection 4,000 Units 4,000 Units, Intravenous, ONCE, 1 dose, On [facility] 07/24/17 at 1330 Given 07/24/2017 2:09 PM EDT 4,000 Units heparin 25,000 units in 250 mL 0.45% NaCl 1,500 Units/hr (15 mL/hr), Intravenous, CONTINUOUS, Starting on [facility] 07/24/17 at 1330, Until [place] 07/25/17 at 1531 New Bag 07/25/2017 8:05 AM EDT 1,500 Units/hr 15 mL/hr insulin aspart U-100 (NovoLOG) injection 1-10 Units 1-10 Units, Subcutaneous, 4 TIMES DAILY WITH MEALS, First dose on [facility] 07/24/17 at 1800, Until Discontinued, Medium dose algorithm: [...] hours. Waste Sort Code = BKC Given 07/27/2017 1:29 PM EDT 2 Units Right Arm insulin glargine (LANTUS) injection 28 Units 28 Units, Subcutaneous, EVERY EVENING (INSULIN), First dose on 07/24/17 at 1900, Until Discontinued, Do not mix with other insulins Waste Sort Code = BKC Given 07/26/2017 6:13 PM EDT 28 Units Abdominal Tissue isosorbide mononitrate (IMDUR) CR tablet 60 mg 60 mg, Oral, DAILY, First dose on 07/24/17 at 1530, Until Discontinued Given 07/27/2017 8:12 AM EDT 60 mg lamoTRIgine (LaMICtal) tablet 25 mg 25 mg, Oral, 2 TIMES DAILY, First dose on 07/24/17 at 2100, Until Discontinued Given 07/27/2017 8:12 AM EDT 25 mg lisinopril (PRINIVIL;ZESTril) tablet 20 mg 20 mg, Oral, DAILY, First dose on 07/24/17 at 1530, Until Discontinued, +++ACEI Medication+++ Given 07/27/2017 8:12 AM EDT 20 mg LORazepam (ATIVAN) tablet 1 mg 1 mg, Oral, EVERY 4 HOURS PRN, Starting on 07/25/17 at 1544, Until Wed07/27/17 at 1543, Anxiety, Restlessness, Post-op Given 07/27/2017 8:12 AM EDT 1 mg metoprolol (LOPRESSOR) tablet 25 mg 25 mg, Oral, 2 TIMES DAILY, First dose (after last modification) on 07/26/17 at 2100, Until Discontinued Given 07/26/2017 9:19 PM EDT 25 mg metoprolol (LOPRESSOR) tablet 50 mg 50 mg, Oral, 2 TIMES DAILY, First dose on 07/24/17 at 2100, Until Discontinued Given 07/25/2017 8:39 AM EDT 50 mg miconazole (MICATIN) 2 % powder Topical, 2 TIMES DAILY, 84 doses, First dose on 07/26/17 at 0900, Last dose on 09/05/17 at 2100, Application site: ananya area Given 07/27/2017 9:00 AM EDT nitroGLYCERIN (NITROSTAT) SL tablet 0.4 mg 0.4 mg, Sublingual, EVERY 5 MIN PRN, Starting on 07/24/17 at 0841, Until 07/24/17 at 0940, Chest pain, 0.4 mg = 1 Tab sublingual q5 min x 3 for CP, then notify MD if unrelieved - hold if SBP less than 90. Administer for angina/chest pain prior to administration of analgesics for angina. Given 07/24/2017 8:52 AM EDT 0.4 mg oxyCODONE-acetaminoph en (PERCOCET) 5-325 mg per tablet 1-2 Tab 1-2 Tablet, Oral, EVERY 4 HOURS PRN, Starting on 07/25/17 at 1544, Until Tu07/27/17 at 1543, Pain Unrelieved by Oral Non-Opioid Therapy, Moderate to Severe Pain, Begin with lowest dose unless otherwise directed. Reassess pain in one hour. If pain unrelieved, remainder of dose may be given to patient. Maximum adult dose of acetaminophen is 4000 mg from all sources in 24 hours. , Post-op Given 07/26/2017 9:19 PM EDT 2 Tablets pantoprazole (PROTONIX) tablet 40 mg 40 mg, Oral, DAILY, First dose on 07/24/17 at 1530, Until Discontinued, Do not crush or chew Given 07/27/2017 8:10 AM EDT 40 mg ranolazine (RANEXA) SR tablet 1,000 mg 1,000 mg, Oral, EVERY 12 HOURS SCHEDULED (2 times per day), First dose on 07/24/17 at 2100, Until Discontinued Given 07/27/2017 8:10 AM EDT 1,000 mg sertraline (ZOLOFT) tablet 200 mg 200 mg, Oral, DAILY, First dose on 07/24/17 at 1530, Until Discontinued Given 07/27/2017 8:10 AM EDT 200 mg sodium chloride 0.9% syringe Intravenous, EVERY 8 HOURS SCHEDULED (3 times per day), First dose on Wed07/26/17 at 0600, Until Discontinued, Flush with 3-5 mL saline for PERIPHERAL saline lock maintenance. Given 07/26/2017 9:28 PM EDT 5 mL sodium chloride 0.9% syringe Intravenous, PRN, Starting on Wed07/26/17 at 0459, Until Wed07/27/17 at 2212, Line Care, Flush with 5-10 mL saline pre/post IVP, and 5 mL prior to IVPB or blood product administration. traZODone (DESYREL) tablet 150 mg 150 mg, Oral, NIGHTLY, First dose on Wed07/24/17 at 2100, Until Discontinued Given 07/26/2017 9:19 PM EDT 150 mg documented in this encounter Discontinued Medications Medication Sig Discontinue Reason Start Date End Da te sucralfate (CARAFATE) 100 mg/mL Oral Suspension Take 1 g by mouth 4 times daily (before meals and nightly). Stop Taking at Discharge 07/24/2017 Saccharomyces boulardii (FLORASTOR) 250 mg Oral Capsule Take 1 Cap by mouth 2 times daily. Stop Taking at Discharge 05/12/2017 07/24/2017 risperiDONE (RISPERDAL) 0.5 mg Oral Tablet Take 0.5 mg by mouth nightly. Stop Taking at Discharge 07/27/2017 documented as of this encounter Active and Recently Administered Medications Times are shown in EDT. Scheduled Medication Order 07/25/2017 07/26/2017 07/27/2017 amLODIPine (NORVASC) tablet 2.5 mg 2.5 mg, Oral, DAILY, First dose on 07/24/17 at 1530, Until Discontinued 0839 (Given - Provider: Gerard Reddy RN) 0824 (Given - Provider: Cece Nice RN) 0812 (Given - Provider: Manju Alvarez RN) ARIPiprazole (ABILIFY) tablet 30 mg 30 mg, Oral, DAILY, First dose on 07/24/17 at 1530, Until Discontinued 0838 (Given - Provider: Gerard Reddy RN) 0824 (Given - Provider: Cece Nice RN) 0810 (Given - Provider: Manju Alvarez, ROLF) aspirin chewable tablet 81 mg 81 mg, Oral, DAILY, First dose on 07/24/17 at 1530, Until Discontinued 0837 (Given - Provider: Gerard Reddy RN) 0823 (Given - Provider: Cece Nice RN) 0810 (Given - Provider: Manju Alvarez RN) atorvastatin (LIPITOR) tablet 20 mg 20 mg, Oral, NIGHTLY, First dose on 07/24/17 at 2100, Until Discontinued 224 (Given - Provider: Faby Omer, ROLF) 2118 (Given - Provider: Dane Sanchez, ROLF) cloNIDine HCl (CATAPRES) tablet 0.1 mg 0.1 mg, Oral, 2 TIMES DAILY, First dose on 07/24/17 at 2100, Until Discontinued 0839 (Given - Provider: Gerard Reddy RN)220 (Not Given - Provider: Faby Omer RN - Reason: Other - Comment: sbp 90s) 08 (Given - Provider: Cece Nice RN)2118 (Given - Provider: Dane Sanchez, ROLF) 0811 (Given - Provider: Manju Alvarez RN) clopidogrel (PLAVIX) tablet 75 mg 75 mg, Oral, DAILY, First dose on 07/26/17 at 0900, Until Discontinued, Post-op 1628 (Given - Provider: Deisy Campuzano RN) 0824 (Given - Provider: Cece Nice RN) 0811 (Given - Provider: Manju Alvarez RN) fUROsemide (LASix) tablet 20 mg 20 mg, Oral, DAILY, First dose on 07/24/17 at 1530, Until Discontinued 0840 (Given - Provider: Gerard Reddy RN) 0823 (Given - Provider: Cece Nice RN) 0812 (Given - Provider: Manju Alvarez RN) glipiZIDE (GLUCOTROL) tablet 10 mg 10 mg, Oral, 2 TIMES DAILY WITH MEALS, First dose on 07/24/17 at 1800, Until Discontinued 0839 (Given - Provider: Gerard Reddy RN)1819 (Given - Provider: Ela Zhang RN) 0824 (Given - Provider: Cece Nice RN)1739 (Given - Provider: Cece Nice RN) 0811 (Given - Provider: Manju Alvarez RN)1800 (Due) insulin aspart U-100 (NovoLOG) injection 1-10 Units 1-10 Units, Subcutaneous, 4 TIMES DAILY WITH MEALS, First dose on 07/24/17 at 1800, Until Discontinued, Medium dose algorithm: [...] hours. Waste Sort Code = [facility] 0800 (Not Given - Provider: Gerard Reddy RN - Reason: Other - Comment: Angio at 1300)1200 (Not Given - Provider: Gerard Reddy RN - Reason: NPO)1800 (Not Given - Provider: Ela Zhang RN - Reason: Order parameters not met)2200 (Not Given - Provider: Faby Omer RN - Reason: Order parameters not met) 0811 (Given - Provider: Cece Nice RN - Comment: verified ROLF VENTURA)1217 (Given - Provider: Cece Nice RN - Comment: verified with ROLF Guillory)1739 (Given - Provider: Cece Nice RN)2100 (Not Given - Provider: Dane Sanchez RN - Reason: Order parameters not met - Comment: FSBS was 137) 0800 (Not Given - Provider: Manju Alvarez RN - Reason: Order parameters not met)1329 (Given - Provider: Manju Alvarez RN - Comment: JE)1800 (Due) insulin glargine (LANTUS) injection 28 Units 28 Units, Subcutaneous, EVERY EVENING (INSULIN), First dose on 07/24/17 at 1900, Until Discontinued, Do not mix with other insulins Waste Sort Code = [facility] 2023 (Given - Provider: Faby Omer, ROLF) 1812 (Given - Provider: Cece Nice, ROLF) isosorbide mononitrate (IMDUR) CR tablet 60 mg 60 mg, Oral, DAILY, First dose on 07/24/17 at 1530, Until Discontinued 0838 (Given - Provider: Gerard Reddy RN - Comment: [id number]) 0824 (Given - Provider: Cece Nice RN) 08 (Given - Provider: Manju Alvarez RN) lamoTRIgine (LaMICtal) tablet 25 mg 25 mg, Oral, 2 TIMES DAILY, First dose on 07/24/17 at 2100, Until Discontinued 0838 (Given - Provider: Gerard Reddy RN)2246 (Given - Provider: Faby Omer RN) 0823 (Given - Provider: Cece Nice, ROLF)211 (Given - Provider: Dane Sanchez RN) 08 (Given - Provider: Manju Alvarez RN) lisinopril (PRINIVIL;ZESTril) tablet 20 mg 20 mg, Oral, DAILY, First dose on 07/24/17 at 1530, Until Discontinued, +++ACEI Medication+++ 0839 (Given - Provider: Gerard Reddy RN) 08 (Given - Provider: Cece Nice RN) 08 (Given - Provider: Manju Alvarez, ROLF) metoprolol (LOPRESSOR) tablet 25 mg 25 mg, Oral, 2 TIMES DAILY, First dose (after last modification) on 07/26/17 at 2100, Until Discontinued 2118 (Given - Provider: Dane Sanchez RN) 08 (Not Given - Provider: Manju Alvarez, ROLF - Reason: Contraindicated) metoprolol (LOPRESSOR) tablet 50 mg (CANCELED) 50 mg, Oral, 2 TIMES DAILY, First dose on 07/24/17 at 2100, Until Discontinued 0839 (Given - Provider: Gerard Reddy RN)2199 (Not Given - Provider: Faby Omer RN - Reason: Other - Comment: sbp 90s , hr 50s) 0823 (Not Given - Provider: Cece Nice RN - Reason: Contraindicated - Comment: Heart rate in 50's, PLUMBING INSPECTOR infromed to hold) miconazole (MICATIN) 2 % powder Topical, 2 TIMES DAILY, 84 doses, First dose on 07/26/17 at 0900, Last dose on 09/05/17 at 2100, Application site: [place] area 1147 (Given - Provider: Cece Nice RN)2119 (Given - Provider: Dane Sanchez RN) 09 (Given - Provider: Manju Alvarez, ROLF) pantoprazole (PROTONIX) tablet 40 mg 40 mg, Oral, DAILY, First dose on 07/24/17 at 1530, Until Discontinued, Do not crush or chew 0838 (Given - Provider: Gerard Reddy RN) 0824 (Given - Provider: Cece Nice, ROLF) 0810 (Given - Provider: Manju Alvarez, ROLF) ranolazine (RANEXA) SR tablet 1,000 mg 1,000 mg, Oral, EVERY 12 HOURS SCHEDULED (2 times per day), First dose on 07/24/17 at 2100, Until Discontinued 0838 (Given - Provider: Gerard Reddy RN)2246 (Given - Provider: Faby Omer, ROLF) 0824 (Given - Provider: Cece Nice RN)2118 (Given - Provider: Dane Sanchez RN) 0810 (Given - Provider: Manju Alvarez, ROLF) sertraline (ZOLOFT) tablet 200 mg 200 mg, Oral, DAILY, First dose on 07/24/17 at 1530, Until Discontinued 0839 (Given - Provider: Gerard Reddy, RN) 0824 (Given - Provider: Cece Nice, RN) 0810 (Given - Provider: Manju Alvarez, ROLF) sodium chloride 0.9% syringe Intravenous, EVERY 8 HOURS SCHEDULED (3 times per day), First dose on 07/26/17 at 0600, Until Discontinued, Flush with 3-5 mL saline for PERIPHERAL saline lock maintenance. 0646 (Given - Provider: Faby Omer RN)1740 (Given - Provider: Cece Nice, ROLF)2128 (Given - Provider: Dane Sanchez, ROLF) 0600 (Not Given - Provider: Dane Sanchez, ROLF - Reason: Contraindicated)140 0 (Not Given - Provider: Manju Alvarez, ROLF - Reason: Loss of IV access) traZODone (DESYREL) tablet 150 mg 150 mg, Oral, NIGHTLY, First dose on 07/24/17 at 2100, Until Discontinued 2200 (Not Given - Provider: Faby Omer RN - Reason: Sedated/Sleeping) 9 (Given - Provider: Dane Sanchez, ROLF) Continuous Medication Order 07/25/2017 07/26/2017 07/27/2017 0.9 % NaCl infusion (CANCELED) Intravenous, at 150 mL/hr, CONTINUOUS, Starting on 07/24/17 at 1700, Until 07/25/17 at 1544, Start 2 hours prior to procedure at 150 mL/hr. If Sodium Bicarbonate drip to infuse, 0.9% Normal Saline to infuse at Keep Open Rate., Pre-op (Floor Meds) 1110 (New Bag - Provider: Gerard Reddy, RN) 0814 (IV Stopped by Other - Provider: Cece Nice, ROLF - Comment: not runnig during my shift) 0.9 % NaCl infusion () Intravenous, at 150 mL/hr, CONTINUOUS, Starting on 07/25/17 at 1545, Until 07/25/17 at 1944, If infusion complete, infuse 0.9% Normal Saline at KOR until sheath is removed., Post-op 1545 (Rate/Dose Verify - Provider: Deisy Campuzano, ROLF) 0812 (IV Stopped by Other - Provider: Cece Nice, ROLF - Comment: not running during my shift) heparin 25,000 units in 250 mL 0.45% NaCl (CANCELED) 1,500 Units/hr (15 mL/hr), Intravenous, CONTINUOUS, Starting on 07/24/17 at 1330, Until 07/25/17 at 1531 0805 (New Bag - Provider: Gerard Reddy, RN)1232 (Stopped - Provider: Arpita Croft, ROLF) PRN Medication Order 07/25/2017 07/26/2017 07/27/2017 acetaminophen (TYLENOL) tablet 650 mg 650 mg, Oral, EVERY 4 HOURS PRN, Starting on 07/25/17 at 1544, Until Wed07/27/17 at 2212, Pain, Maximum adult dose of acetaminophen is 4000 mg from all sources in 24 hours. , Post-op adenosine in sodium chloride 0.9% (ADENOSCAN) 1 mg/mL ivpb (COMPLETED) CONTINUOUS PRN, Starting on 07/25/17 at 1515, Until 07/25/17 at 1524, Intra-procedure(Cath) 1515 (New Bag - Provider: Mike Winchester MD)1524 (New Bag - Provider: Mike Winchester MD) 0800 (IV Stopped by Other - Provider: Cece Nice, ROLF - Comment: not running during my shift) atropine injection 0.5 mg 0.5 mg, Intravenous, PRN, Starting on 07/25/17 at 1532, Until Tu07/27/17 at 2212, Symptomatic bradycardia, emergency treatment, Administer IV push for symptomatic bradycardia, may repeat every 3-5 minutes to total of 3 mg. dextrose 50 % solution 25 g 25 g, Intravenous, PRN, Starting on 07/25/17 at 1532, Until Tu07/27/17 at 2212, Low blood sugar, for emergency treatment of profound hypoglycemia, May repeat in 15 minutes. VESICANT dextrose 50 % solution 25 mL 25 mL, Intravenous, PRN, Starting on 07/24/17 at 1516, Until 07/27/17 at 2212, Low blood sugar, If FSBS less than 70 mg/dl and patient cannot take orally, Check FSBS every 30 minutes and repeat 25 mL of D50 IV push and notify physician if FSBS less than 70 mg/dL VESICANT EPINEPHrine injection 1 mg 1 mg, Intravenous, PRN, Starting on 07/25/17 at 1532, Until 07/27/17 at 2212, Ventricular fibrillation, Emergency order for V-FIB or Pulseless V-TACH, Emergency order for V-FIB or Pulseless V-TACH, Asystole, PEA. VESICANT fentaNYL (SUBLIMAZE) injection (CANCELED) PRN, Starting on 07/25/17 at 1436, Until 07/25/17 at 1538, Intra-procedure(Cath) 1436 (Given - Provider: Simran Gary) glucagon (human recombinant) (GLUCAGEN) injection 1 mg 1 mg, Intramuscular, PRN, Starting on 07/24/17 at 1516, Until 07/27/17 at 2212, Low blood sugar, If FSBS less than 70 mg/dl, patient cannot take orally and without IV access, If patient is without IV access, give Glucagon 1 mg Intramuscularly, insert IV and call physician. heparin 2 units/ml in 0.9% NaCl 500 mL (COMPLETED) CONTINUOUS PRN, Starting on 07/25/17 at 1441, Until 07/25/17 at 1441, Intra-procedure(Cath) 1441 (New Bag - Provider: Simran Gary) lidocaine 20 mg/mL (2 %) injection (CANCELED) PRN, Starting on 07/25/17 at 1445, Until 07/25/17 at 1538, Intra-procedure(Cath) 1445 (Given - Provider: Mike Winchester MD) LORazepam (ATIVAN) tablet 1 mg 1 mg, Oral, EVERY 4 HOURS PRN, Starting on 07/25/17 at 1544, Until 07/27/17 at 1543, Anxiety, Restlessness, Post-op 2022 (Given - Provider: Faby Omer RN) 2118 (Given - Provider: Dane Sanchez RN) 08 (Given - Provider: Manju Alvarez RN) midazolam (VERSED) injection (CANCELED) PRN, Starting on 07/25/17 at 1437, Until 07/25/17 at 1538, Intra-procedure(Cath) 1437 (Given - Provider: Simran Gary) nitroglycerin injection (CANCELED) PRN, Starting on 07/25/17 at 1454, Until 07/25/17 at 1538, Intra-procedure(Cath) 1454 (Given - Provider: Mike Winchester MD) oxyCODONE-acetaminophen (PERCOCET) 5-325 mg per tablet 1-2 Tab 1-2 Tablet, Oral, EVERY 4 HOURS PRN, Starting on 07/25/17 at 1544, Until Wed07/27/17 at 1543, Pain Unrelieved by Oral Non-Opioid Therapy, Moderate to Severe Pain, Begin with lowest dose unless otherwise directed. Reassess pain in one hour. If pain unrelieved, remainder of dose may be given to patient. Maximum adult dose of acetaminophen is 4000 mg from all sources in 24 hours. , Post-op 2022 (Given - Provider: Faby Omer RN) 2118 (Given - Provider: Dane Sanchez RN) sodium chloride 0.9% syringe Intravenous, PRN, Starting on 07/26/17 at 0459, Until Wed07/27/17 at 2212, Line Care, Flush with 5-10 mL saline pre/post IVP, and 5 mL prior to IVPB or blood product administration. documented in this encounter Orders Medications Ordered That Gaurav ht Not Have Been Administered Count Last Ordered Date First Ordered Date sodium chloride 0.9% syringe 07/26/2017 acetaminophen (TYLENOL) tablet 650 mg adenosine in sodium chloride 0.9% (ADENOSCAN) 1 mg/mL ivpb 07/25/2017 atropine injection 0.5 mg 07/25/2017 clopidogrel (PLAVIX) tablet 75 mg 018 dextrose 50 % solution 25 g 07/25/2017 EPINEPHrine injection 1 mg 07/25/2017 fentaNYL (SUBLIMAZE) injection 07/25/2017 heparin 2 units/ml in 0.9% NaCl 500 mL lidocaine 20 mg/mL (2 %) injection 2017 midazolam (VERSED) injection 07/25/2017 morphine injection 4 mg 1 07/25/2017 nitroglycerin injection 1 07/25/2017 dextrose 50 % solution 25 mL 1 07/24/2017 glucagon (human recombinant) (GLUCAGEN) injection 1 mg 1 07/24/2017 heparin (porcine) injection 5,000 Units 1 0 07/24/2017 heparin 25,000 units in 250 mL 0.45% NaCl 1 07/24/2017 risperiDONE (RisperDAL) tablet 0.5 mg 1 sodium chloride 0.9% syringe 5-10 mL 1 07/06 Procedures Count Last Ordered Date First Orde red Date 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 1 07/24/2017 Nursing Count Last Ordered Date First Orde red Date ADMISSION 1 07/24/2017 [facility] VTE PROPH NON-CANDIDATE 1 07/24/2017 Consult Count Last Ordered Date First Orde red Date IP CONSULT TO CLINICAL OUTCOMES RN 1 2017 IP CONSULT TO NUTRITION 1 07/26/2017 IP CONSULT TO CARDIOLOGY 1 07/24/2017 IP CONSULT TO PHARMACY 1 07/24/2017 Nourishments Count Last Ordered Date First Orde red Date DIET MESSAGE 1 07/24/2017 PT Count Last Ordered Date First Orde red Date IP CONSULT TO PHYSICAL THERAPY 1 07/26/2017 Transfer Count Last Ordered Date First Orde red Date TRANSFER PATIENT 1 07/26/2017 BED REQUEST 1 07/24/2017 Discharge Count Last Ordered Date First Orde red Date AMBULATE PATIENT WITH ASSIST 1 07/27/2017 CERTIFICATION STATEMENT 1 07/27/2017 CONTACT PCP 1 07/27/2017 CONTINUE CURRENT DIET 1 07/27/2017 FULL CODE 1 07/27/2017 OCCUPATIONAL THERAPY EVALUAT ION AND TREATMENT 1 07/27/2017 PHYSICAL THERAPY EVALUATION AND TREATMENT 1 07/27/2017 SEE AVS 1 07/27/2017 documented in this encounter Additional Health Concerns Assessment Noted Time A fall risk assessment has been complete d for the patient 04/21/2017 10:52 AM EST documented as of this encounter Care Teams Fast Food Supervisor Relationship Specialty Start Date End Date Sharee Segovia APRN [address] [place] [phone] PCP - General Nurse Practitioner-Family 09/21/16 documented as of this encounter
--- OUTSIDE RECORDS SUMMARY | 2024-02-16 14:54 | XMS_ITS | Encounter Summary ---
Author Organization [place] [facility] [place] [address] Care Team Providers Care Face Worker Name Role Phone Sharee Segovia APRN Primary Care Provider [phone] Katheryn Allen RN Unavailable Unavailable Khalida Hunter TUTOR COORDINATOR, COS Unavailable Unavai Charity Newell RN Unavailable Unavail able Isaura Pickens CREDIT SUPPORT COUNSELOR Unavailable Unavail able Encounter Details Date Type Department Care Team (Late st Contact Info) Description 07/28/2017 Lab Requisition [facility] [place] [id number] [facility] Encounter for general adult medical [...] maintain an ideal body weight General No QuincyLailaSilva S ROSIRonaldo HEMOGLOBIN A1C < 7.0 Result Component 6.6( 9 9:49 AM EST) No Shana Mathewly THEO Colby documented as of this encounter Procedures Procedure Name Priority Date/Time Associated Diagnosis Comments CBC WITH DIFF Today 07/28/2017 5:23 AM EDT Encounter for general adult medical examination without abnormal findings COMPREHENSIVE METABOLIC PANEL Today 07/28/2017 5:23 AM EDT Encounter for general adult medical examination without abnormal findings documented in this encounter Results * (ABNORMAL) CBC WITH DIFF (07/28/2017 5:23 AM EDT) WBC 6.8 3.7 - 10.3 x10(3)/mc L 07/28/2017 8:16 AM EDT [facility] RBC 3.87(L) 3.90 - 5.20 x10(6)/mc L 07/28/2017 8:16 AM EDT [facility] Hgb 11.3 11.2 - 15.7 g/dL 07/28/2017 8:16 AM EDT [facility] Hct 35.2 34.0 - 45.0 % 07/28/2017 8:16 AM EDT [facility] MCV 91.0 79.0 - 98.0 fL 07/28/2017 8:16 AM EDT [facility] MCH 29.2 26.0 - 32.0 pg 07/28/2017 8:16 AM EDT [facility] MCHC 32.1 30.7 - 35.5 g/dL 07/28/2017 8:16 AM EDT [facility] RDW 13.4 <=14.9 % 07/28/2017 8:16 AM EDT [facility] Platelet 197 155 - 369 x10(3)/mc L 07/28/2017 8:16 AM EDT [facility] MPV 11.6 8.8 - 12.5 fL 07/28/2017 8:16 AM EDT [facility] Neut Percent 66.3 % 07/28/2017 8:16 AM EDT [facility] Comment:Neutrophils equals s egs plus bands Imm Gran% 0.9 % 07/28/2017 8:16 AM EDT [facility] Comment:Automated count of m etamyelocytes, myelocytes and promyelocytes Lymph Percent 22.4 % 07/28/2017 8:16 AM EDT [facility] [place] Percent 6.5 % 07/28/2017 8:16 AM EDT [facility] Eos Percent 3.2 % 07/28/2017 8:16 AM EDT [facility] Baso Percent 0.7 % 07/28/2017 8:16 AM EDT [facility] Neut # 4.5 1.6 - 6.1 x10(3)/mc L 07/28/2017 8:16 AM EDT [facility] Comment:Neutrophils equals s egs plus bands IMMGRAN# 0.1 0.0 - 0.1 x10(3)/mc L 07/28/2017 8:16 AM EDT [facility] Comment:Automated count of m etamyelocytes, myelocytes and promyelocytes Lymph # 1.5 1.2 - 3.9 x10(3)/mc L 07/28/2017 8:16 AM EDT [facility] [place] # 0.4 0.3 - 0.9 x10(3)/mc L 07/28/2017 8:16 AM EDT [facility] Eos# 0.2 0.0 - 0.5 x10(3)/mc L 07/28/2017 8:16 AM EDT [facility] Baso # 0.1 0.0 - 0.1 x10(3)/mc L 07/28/2017 8:16 AM EDT [facility] Blood VENOUS BLOOD / Unknown 07/28/2017 5:23 AM EDT 07/28/2017 7:55 AM EDT us [facility] HEMATOLOGY ORDERABLES Final Res ult [facility] [address] [id number] * (ABNORMAL) COMPREHENSIVE METABOLIC PANEL (07/28/2017 5:23 AM EDT) Sodium 143 136 - 145 mmol/L [facility]2017 [facility] Potassium 4.3 3.5 - 5.0 mmol/L 07/28/2017 9:46 AM EDT [facility] Chloride 103 98 - 107 mmol/L 07/28/2017 9:46 AM EDT [facility] Total CO2 26 22 - 29 mmol/L 07/28/2017 9:[facility] Anion Gap 14 7 - 16 mmol/L 07/28/2017 9:46 AM [facility] Calcium 9.0 8.8 - 10.2 mg/dL 07/28/2017 9:46 AM [facility] Glucose Lvl 86 82 - 100 mg/dL 07/28/2017 9:46 AM [facility] BUN 23 8 - 23 mg/dL 07/28/2017 9:46 AM EDT [facility] Creatinine 1.30 0.51 - 1.30 mg/dL 07/28/2017 9:46 AM [facility] Albumin 3.5 3.2 - 4.6 gm/dL 07/28/2017 9:46 AM [facility] Total Protein 6.2(L) 6.4 - 8.3 gm/dL 07/28/2017 9:46 [facility] Bili Total 0.3 0.1 - 1.3 mg/dL 07/28/2017 9:46 AM EDT [facility] ALT 12 <=41 IU/L 07/28/2017 9:46 [facility] AST 17 <=40 IU/L 07/28/2017 9:46 AM [facility] Alk Phos 113(H) 35 - 104 IU/L 07/28/2017 9:46 AM EDT [facility] GFR Afr Am 49 mL/min/1.7 3 m2 07/28/2017 9:46 AM EDT [facility] GFR Non Afr Am 43 mL/min/1.7 3 m2 07/28/2017 9:46 AM EDT [facility] Comment: GFR Afr Am and GFR Non Afr Am calculated using CKD-EPI equation. ?? GFR Category ?GFR(mL/min/1.73 m??) ? Kidney Function G1 ?>=90 ?Normal or high G2 ?60-89 ? Mildly decreased G3a ? 45-59 ? Mildly to moderately decreased G3b ? 30-44 ? Moderately to severely decreased G4 ?15-29 ? Severely decreased G5 ?<15 ? Kidney Failure Blood VENOUS BLOOD / Unknown 07/28/2017 5:23 AM EDT 07/28/2017 7:55 AM EDT us [facility] CHEMISTRY ORDERABLES Final Resu lt [facility] [address] [place] [address] documented in this encounter Visit Diagnoses Diagnosis Encounter for general adult medical examination without abnormal findings Routine general medical examination at a health care facility documented in this encounter Additional Health Concerns Assessment Noted Time A fall risk assessment has been complete d for the patient 04/21/2017 10:52 AM EST documented as of this encounter Care Teams Face Worker Relationship Specialty Start Date End Date Sharee Segovia APRN [address] [place], [place] [phone] PCP - General Nurse Practitioner-Family 09/21/16 Katheryn Allen, RN Health Advocate Registered Nurse 08/04/17 09/14/17 Khalida Hunter LSW, COS Rolls Mill Operator 08/09/17 08/29/17 Charity Last RN Concrete Rubber Registered Nurse 07/21/18 07/21/18 Isaura Pickens, CREDIT SUPPORT COUNSELOR [employer] Operator 09/12/18 10/19/18 documented as of this encounter
--- OUTSIDE RECORDS SUMMARY | 2024-02-16 14:55 | XMS_ITS | Encounter Summary ---
Author Organization [place] [address] Care Team Providers Care Welt Trimming Machine Operator Name Role Phone Sharee Segovia APRN Primary Care Provider [phone] [phone] Reason for Visit * Reason Comments Follow-up 6 mth f/u (Meds per pt's list) Coronary Artery Disease Atrial Flutter Hypertension Encounter Details Date Type Department Care Team (Late st Contact Info) Description 07/20/2017 10:15 AM EDT Office Visit [facility] [address] [place] [address] Bello Devries MD [address] [place] [address] Chronic diastolic CHF (congestive heart failure) (HCC) (Primary Dx); Atrial flutter, unspecified type (HCC); Essential hypertension; Coronary artery disease involving chickahominy indian tribe coronary artery of chickahominy indian tribe heart with unstable angina pectoris (HCC) Social History Tobacco Use Types Packs/Day [...] Sign Reading Time Taken Comments Blood Pressure 155/71 07/20/2017 10:37 AM EDT Pulse 50 07/20/2017 10:37 AM EDT Temperature - - Respiratory Rate - - Oxygen Saturation - - Inhaled Oxygen Concentration - - Weight 109.4 kg (241 lb 3.2 oz) 018 10:37 AM EDT Height 172.7 cm (5' 8 ) 07/20/2017 10:3 7 AM EDT Body Mass Index 36.67 07/20/2017 10:37 AM EDT documented in this encounter Ordered Prescriptions Prescription Sig Dispense Quantity Refills Last Filled Start Date End Date cloNIDine HCl (CATAPRES) 0.1 mg Oral Tablet Take 1 Tab by mouth 2 times daily. Hold for SBP <90 60 Tab 2 07/20/2017 08/02/2017 amLODIPine (NORVASC) 2.5 mg Oral Tablet Take 1 Tab by mouth daily. 30 Tab 11 07/20/2017 08/14/2018 documented in this encounter Progress Notes * Sridevi Calle, PRESCHOOL SPECIAL EDUCATION TEACHER - 07/20/2017 10:15 AM EDT Cardiology Progress Note Patient Name: Faby Palm : 1950 HPI Patient is here today for a 6 month follow up visit. She reports going to the ED recently for HTN and headache via the squad. She was treated and then sent home. She reports having intermittent high blood pressure. She has a great deal of stress and feels this could be contributing to her HTN. She has chronic SOB that is unchanged. Denies any chest pain, palpitations, dizzy, lightheadedness and syncope. Denies smoking. Sedentary ROS Denies: fever, chills, nausea, vomiting, dizziness, headaches, diarrhea Past Medical History: Diagnosis Date ??? Atrial [...] ??? Urinary incontinence ??? Yeast infection recurrent Current Outpatient Prescriptions: ??? acetaminophen 325 mg Oral Tab, Take 650 mg by mouth every 4 hours as needed for Pain., Disp: , Rfl: ??? nsosk-C-giznqgplgfbrv (ANTI-GAS ORAL), Take by mouth 3 times daily as needed., Disp: , Rfl: ??? ARIPiprazole (ABILIFY) 30 mg Oral Tablet, [...] mouth 2 times daily. Hold for SBP <90, Disp: 28 Tab, Rfl: 0 ??? ferrous sulfate 325 mg (65 mg iron) Oral Tablet, Take 1 Tab by mouth 2 times daily (with meals)., Disp: 60 Tab, Rfl: 5 ??? fUROsemide (LASIX) 20 mg Oral Tablet, Take 1 Tab by mouth daily., Disp: 30 Tab, Rfl: 0 ??? glipiZIDE (GLUCOTROL) 10 mg Oral Tablet, Take 10 mg by mouth 2 times daily (with meals)., Disp:, Rfl: ??? insulin glargine (LANTUS) 100 unit/mL SubQ Solution, Subcutaneous (Inject under the skin) 28 Units every evening., Disp: 10 mL, Rfl: 12 ??? inulin (FIBER CHOICE, INULIN,) 1.5 [...] Oral Capsule, Take 2 mg by mouth 2 times daily., Disp: , Rfl: ??? metFORMIN XR (GLUCOPHAGE-XR) 500 mg Oral Tablet Sustained Release 24 hr, Take 500 mg by mouth daily (with breakfast)., Disp: , Rfl: ??? metoprolol (LOPRESSOR) 50 mg Oral Tablet, TAKE 1 TABLET BY MOUTH 2 TIMES DAILY, Disp: 60 Tab, Rfl: 2 ??? nitroGLYCERIN (NITROSTAT) 0.4 mg SL Tablet, Sublingual, Place 1 Tab under the tongue every 5 minutes as needed for Chest pain., Disp: 20 Tab, Rfl: 2 ??? nystatin (MYCOSTATIN) Top Powder, Apply topically 2 times daily., Disp: , Rfl: ??? pantoprazole (PROTONIX) 40 mg Oral Tablet, Delayed Release (E.C.), TAKE ONE TABLET BY MOUTH ONCE DAILY, Disp: 30 Tab, Rfl: 6 ??? RANEXA 1,000 mg Oral Tablet Sustained Release 12 hr, TAKE ONE TABLET BY MOUTH EVERY 12 HOURS, Disp: 60 Tab, Rfl: 0 ??? risperiDONE (RISPERDAL) 0.5 mg Oral Tablet, Take 0.5 mg by mouth nightly., Disp: , Rfl: ??? Saccharomyces boulardii (FLORASTOR) 250 mg Oral Capsule, Take 1 Cap by mouth 2 times daily., Disp: 60 Cap, Rfl: 0 ??? sertraline (ZOLOFT) 100 mg Oral Tablet, Take 200 mg by mouth daily. Reported on 08/12/2016, Disp:, Rfl: ??? sucralfate (CARAFATE) 100 mg/mL Oral Suspension, Take 1 g by mouth 4 times daily (before meals and nightly)., Disp: , Rfl: ??? traZODone (DESYREL) 300 mg Oral Tablet, Take 1 Tab by mouth nightly. (Patient taking differently: Take 150 mg by mouth nightly.), Disp: 30 Tab, Rfl: 0 ??? valACYclovir (VALTREX) 1 gram Oral Tablet, Take by mouth 3 times daily., Disp: , Rfl: Social History Social History ??? Marital status: [...] on file Social History Narrative Lives at [facility] Has two children and two grandchildren. Is Past Surgical History: Procedure Laterality Date ??? [...] Allergen Reactions ??? Compazine [Prochlorperazine Edisylate] ??? [place] ??? Pentazocine Hcl ??? Prochlorperazine Maleate ??? [place] [Pentazocine Lactate] Family History Problem Relation Age of Onset ??? Cancer Mother larnyx cancer ??? Heart Disease Sister ??? No Known Problems Son ??? Seizures Daughter Objective Vitals: 07/20/17 1037 BP: 155/71 Pulse: 50 Exam: GENERAL APPEARANCE: In no acute distress NECK: No JVD - No Bruit RESPIRATORY: Normal breath sounds bilateral HEART: Normal S1 S2- No S3, S4 No Murmur, rub or gallop VASCULAR: Normal pulses, equal, bilateral ABDOMEN: Soft, nontender, no organomegaly, no distension EXTREMITIES Trace bilat ankle edema- No cyanosis No results found for this visit on 07/20/17. Labs Lab Results Component Value Date CHOLESTEROL 117 05/02/2017 CHOLESTEROL 164 10/22/2016 CHOLESTEROL 177 09/09/2015 HDL 49 05/02/2017 HDL 48 10/22/2016 HDL 35 (L) 09/09/2015 LDLCALC 27 05/02/2017 LDLCALC 69 10/22/2016 LDLCALC 67 09/09/2015 TRIG 203 (H) 05/02/2017 TRIG 235 (H) 10/22/2016 TRIG 375 (H) 09/09/2015 Lab Results Component Value Date INR 1.12 (H) 07/16/2017 INR 1.09 11/10/2016 INR 1.03 12/28/2015 Lab Results Component Value Date WBC 6.7 07/16/2017 WBC 10.2 07/11/2017 WBC 8.6 05/03/2017 HGB 12.8 07/16/2017 HGB 13.1 07/11/2017 HGB 11.4 (L) 05/03/2017 HCT 38.0 07/16/2017 HCT 38.9 07/11/2017 HCT 33.3 (L) 05/03/2017 MCV 89.2 07/16/2017 MCV 88.4 07/11/2017 MCV 90.2 05/03/2017 PLT 200 07/16/2017 PLT 207 07/11/2017 PLT 214 05/03/2017 Lab Results Component Value Date HGBA1C 6.8 05/02/2017 HGBA1C 7.9 (H) 10/22/2016 HGBA1C 6.1 09/09/2015 Lab Results Component Value Date NA 142 07/16/2017 NA 142 07/11/2017 NA 144 05/03/2017 K 4.1 07/16/2017 K 3.9 07/11/2017 K 4.1 05/03/2017 BUN 10 07/16/2017 BUN 8 07/11/2017 BUN 20 05/03/2017 CALCIUM 9.3 07/16/2017 CALCIUM 9.1 07/11/2017 CALCIUM 8.6 (L) 05/03/2017 CL 104 07/16/2017 CL 102 07/11/2017 CL 103 05/03/2017 CO2 25 07/16/2017 CO2 27 07/11/2017 CO2 26 05/03/2017 CREATININE 1.03 07/16/2017 CREATININE 1.04 07/11/2017 CREATININE 1.44 (H) 05/03/2017 GLU 237 (H) 07/16/2017 GLU 123 (H) 07/11/2017 GLU 133 (H) 05/03/2017 Lab Results Component Value Date ALT 8 07/16/2017 ALT 10 05/03/2017 ALT 9 10/22/2016 AST 11 07/16/2017 AST 13 05/03/2017 AST 9 10/22/2016 GGT 49 (H) 09/09/2015 ALKPHOS 145 (H) 07/16/2017 ALKPHOS 135 (H) 05/03/2017 ALKPHOS 157 (H) 10/22/2016 Assessment Patient Active Problem List Diagnosis Date Noted ??? Diarrhea 05/04/2017 ??? Acute lower UTI 05/04/2017 ??? Morbid obesity with BMI of 45.0-49.9, adult ([facility]) 05/03/2017 ??? Metabolic encephalopathy 05/03/2017 ??? Depression with suicidal ideation 05/03/2017 ??? Intellectual disability 05/03/2017 ??? Acute chest pain 04/11/2017 ??? Schizoaffective disorder, depressive type ([facility]) 02/19/2017 ??? Hypotension 12/19/2016 ??? 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 ([facility]) 10/22/2016 ??? Recurrent major depressive disorder, in partial remission ([facility]) 10/22/2016 ??? Mood disorder ([facility]) 10/13/2016 ??? 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 3 chronic kidney disease, with long-term current use of insulin ([facility]) 07/31/2016 ??? Atrial flutter ([facility]) EPS, AFL Ablation on 12/31/[address] Tee ??? S/P ablation of atrial flutter 01/01/2016 S/P EPS/atrial flutter ablation on 12/31/[address] Tee ??? Ulcer of esophagus without bleeding 12/29/2015 ??? Angina pectoris ([facility]) 12/27/2015 ??? Chronic diastolic CHF (congestive heart failure) ([facility]) 12/26/2015 ??? JACK (acute kidney injury) ([facility]) 09/09/2015 ??? Coronary artery disease involving chickahominy indian tribe coronary artery of chickahominy indian tribe heart with unstable angina pectoris ([facility]) 09/09/2015 Coronary Findings 12/2015 Dominance: Right Left Main The vessel is moderate in size. Left Anterior Descending Proximal LAD 60-70% stenosis. Left Circumflex There is mild diffuse disease throughout the vessel. Right Coronary Artery High anterior takeoff. Ostial RCA 20%, no dampening noted. ??? ELIU (iron deficiency anemia) 04/02/2015 ??? Precordial pain 04/01/2015 ??? Gastrointestinal hemorrhage associated with gastroduodenitis 04/01/2015 ??? Acute blood loss anemia 04/01/2015 ??? Hemiparesis affecting left side as late effect of stroke (HCC) 04/01/2015 ??? History of CVA (cerebrovascular accident) 10/19/2014 ??? Frequent falls 10/19/2014 ??? Essential hypertension 10/19/2014 ??? Peripheral motor neuropathy 10/19/2014 HTN -Elevated -155/71 today -With recent ED visit for HTN, will start Amlodipine 2.5 mg daily. -Continue on BB, ARABELLA and Clonidine. ASHD -LHC 10/15/16: Mid LAD w/ 50-60% stenosis. Ostial RCA 50% stenosis. LV EF 55%. -Nuclear [place] Stress 04/13/17: No evidence of myocardial ischemia or prior myocardial infarction. Normal LV size and function. -LV EF 60-65% per echo on 04/12/17 -Denies any chest pain. -Continue on ASA, Statin, BB, ARABELLA, Clonidine, Imdur and Ranexa. NTG prn. Chronic Diastolic CHF -Appears mostly compensated -LV EF 60-65% per echo on 04/12/17 -Continue on BB, ARABELLA and Lasix. -Discussed importance of monitoring Na+ and fluid intake with the pt. Atrial Flutter -s/p Ablation in 2015 H/o CVA DM Type II Morbid Obesity -Encouraged pt to diet and exercise as tolerated daily. Plan -Will start Amlodipine 2.5 mg po daily for tighter BP management. -Encouraged pt to call for any questions or concerns. -Follow up in 3 months or earlier if needed. * Bello Devries MD - 07/20/2017 10:15 AM EDT Seen and examined with LITHOGRAPHIC PROOFER APPRENTICE cta rrr abd nt Try adding non dhp ccb for bp- continue prn clonidine. documented in this encounter Miscellaneous Notes * Patient Instructions - Steph Ontiveros RMA - 07/20/2017 10:15 AM EDT Start taking Amlodipine 2.5 mg daily. Follow up with Dr. Devries in 3 months. Sooner if needed. You may be contacted by phone, mail or e-mail for a patient satisfaction survey regarding your visit here today. We value your opinion and depend on your feedback to make improvements, if needed, andto provide you with the best possible experience while receiving high quality care. We appreciate you taking the time to complete this survey. documented in this encounter Plan of Treatment [...] diastolic CHF (congestive heart failure) (HCC)- Primary Atrial flutter, unspecified type (HCC) Essential hypertension Unspecified essential hypertension Coronary artery disease involving chickahominy indian tribe coronary artery of chickahominy indian tribe heart with unstable angina pectoris (HCC) documented in this encounter Discontinued Medications Medication Sig Discontinue Reason Start Date End Da te lisinopril (PRINIVIL;ZESTRIL) 5 mg Oral Tablet Take 5 mg by mouth daily. Dose adjustment 07/20/2017 hydrOXYzine (VISTARIL) 25 mg Oral Capsule Take 1 Cap by mouth every 6 hours as needed. DELETE-Therapy completed 05/12/2017 07/20/2017 cloNIDine HCl (CATAPRES) 0.1 mg Oral Tablet Take 1 Tab by mouth 2 times daily. Hold for SBP <90 Reorder 07/16/2017 07/20/2017 documented as of this encounter Historical Medications * This list may reflect changes made after this encounter. lisinopril (PRINIVIL;ZESTRI L) 20 mg Oral Tablet Take 20 mg by mouth daily. 8 valACYclovir (VALTREX) 1 gram Oral Tablet Take by mouth 3 times daily. 8 nystatin (MYCOSTATIN) Top Powder Apply topically 2 times daily. 8 egusx-F-iynkktiq idase (ANTI-GAS ORAL) Take by mouth 3 times daily as needed. 9 inulin (FIBER CHOICE, INULIN,) 1.5 gram Oral Tablet, Chewable Take by mouth 2 times daily. 8 added in this encounter Additional Health Concerns Assessment Noted Time A fall risk assessment has been complete d for the patient 04/21/2017 10:52 AM EST documented as of this encounter Care Teams Welt Trimming Machine Operator Relationship Specialty Start Date End Date Sharee Segovia APRN [address] [place] [address] PCP - General Nurse Practitioner-Family 09/21/16 documented as of this encounter
--- OUTSIDE RECORDS SUMMARY | 2024-02-16 14:55 | XMS_ITS | Encounter Summary ---
Author Organization [place] [address] Care Team Providers Care Instrument Tech Name Role Phone Sharee Segovia APRN Primary Care Provider [phone] Reason for Visit * Reason Onset Date Comments ED Follow-Up Call 07/19/2017 Care Management - Chart Review 07/19/2017 Care Transition 07/19/2017 Encounter Details Date Type Department Care Team (Late st Contact Info) Description 07/19/2017 Patient Outreach [facility] [address] [place] [address] Katheryn Allen, CABLE REPAIRER Follow-Up Call; Care Management - Chart Review; Care Transition Social History Tobacco Use Types Packs/Day Years [...] Progress Notes * Katheryn Allen, RN - 07/19/2017 8:13 AM EDT Patient's chart reviewed related to recent ED discharge on 07/16/17, with a diagnosis of Hypertensive urgency. Patient is not a candidate for [facility] to follow at this time. Approved for MD Level 1. The patient lives in a [facility], [facility]. documented in this encounter Plan of Treatment [...] documented as of this encounter Care Teams Instrument Tech Relationship Specialty Start Date End Date Sharee Segovia APRN [address] [place] [phone] PCP - General Nurse Practitioner-Family 09/21/16 documented as of this encounter
--- OUTSIDE RECORDS SUMMARY | 2024-02-16 14:55 | XMS_ITS | Encounter Summary ---
Author Organization [place] [address] Care Team Providers Care Crew Team Member Name Role Phone Sharee Segovia APRN Primary Care Provider [phone] Reason for Visit * Reason Onset Date Comments ED Follow-Up Call 07/12/2017 Care Transition 07/12/2017 Care Management - Chart Review 07/12/2017 Encounter Details Date Type Department Care Team (Late st Contact Info) Description 07/12/2017 Patient Outreach [facility] [place] [facility] [address] [place] [address] Katheryn Allen, SHACTOR Follow-Up Call; Care Transition; Care Management - Chart Review Social History [...] Progress Notes * Katheryn Allen, RN - 07/12/2017 10:03 AM EDT Patient's chart reviewed related to recent ED discharge on 07/11/17, with a diagnosis of Nonintractable headache, unspecified chronicity pattern, unspecified headache type. Patient is not a candidate for [facility] to follow at this time. Approved for MD Level 1. documented in this encounter Plan of Treatment [...] documented as of this encounter Care Teams Crew Team Member Relationship Specialty Start Date End Date Sharee Segovia APRN [address] [place] [phone] PCP - General Nurse Practitioner-Family 09/21/16 documented as of this encounter
--- OUTSIDE RECORDS SUMMARY | 2024-02-16 14:55 | XMS_ITS | Encounter Summary ---
Author [place] [address] Care Team Providers Care Supervisor [employer] Name Role Phone Sharee Segovia APRN Primary Care Provider [phone] Reason for Visit * Reason Comments Chest Pain Began with chest kellen n 30 min prior to EMS arrival, pt was given ASA 324 mg and NTG without reliet, Pt states pain is mid chest with radiation to jaw + SOB. Encounter Details Date Type Department Care Team (Late st Contact Info) Description 07/22/2017 1:28 PM EDT - 07/22/2017 8:04 PM EDT Emergency [facility] [address] [place] [address] Tr Guevara MD [address] [place] [address] Atypical chest pain (Primary Dx) Discharge Disposition: [...] Sign Reading Time Taken Comments Blood Pressure 126/61 07/22/2017 7:49 PM EDT Pulse 61 07/22/2017 7:49 PM EDT Temperature 37.1 ??C (98.7 ??F) 07/22/2017 1:33 PM ED T Respiratory Rate 14 07/22/2017 7:49 PM EDT Oxygen Saturation 93% 07/22/2017 7:49 PM EDT Inhaled Oxygen Concentration - - Weight 110.4 kg (243 lb 6 oz) 07/22/2017 1:33 PM EDT Height 174 cm (5' 8.5 ) 07/22/2017 1:33 PM EDT Body Mass Index 36.47 07/22/2017 1:33 PM EDT documented in this encounter Discharge Instructions * Discharge Instructions* Tr Guevara MD - 07/22/2017 3:25 PM EDT Resume usual medications Call your doctor's office tomorrow to schedule a follow-up appointment for next week Return to the emergency department if you have recurrent or worsening pain, shortness of breath, nausea, weakness, any other concerns In the emergency department, your EKG looked similar to previous EKGs and her blood work did not show any significant abnormalities. * Attachments The following attachments cannot be sent through Care Everywhere. * NONSPECIFIC CHEST PAIN, AADG-ZO-LSAM (AFGHAN) documented in this encounter Medications at Time [...] Chest pain. 20 Tab 2 11/19/2016 9 risperiDONE (RISPERDAL) 0.5 mg Oral Tablet Take 0.5 mg by mouth nightly. 8 Saccharomyces boulardii (FLORASTOR) 250 mg Oral Capsule Take 1 Cap by mouth 2 times daily. 60 Cap 05/12/2017 8 sucralfate (CARAFATE) 100 mg/mL Oral Suspension Take 1 g by mouth 4 times daily (before meals and nightly). 8 documented as of this encounter Discharge Disposition Disposition Code Departure Means Destination Home or Self Senior Living documented in this encounter Progress Notes * Mike Dunaway - 07/22/2017 3:44 PM EDT 07/22/17 1500 Pastoral Care Encounter Visited With Patient Date of visit 07/22/17 Visit Type Initial Need to follow-up? Yes Jehovah'[employer] Witness Needs Prayer Sacramental Needs Has Patient Received SOS? Yes Date of Sacrament of the Sick (Anointing) 07/22/17 Pastoral Care Plan/Intervention Plan/Intervention Sacraments;Prayer 07/22/2017 Mike Dunaway documented in this encounter ED Notes * Tr Guevara MD - 07/22/2017 1:26 PM EDT Chief Complaint Patient presents with ??? Chest Pain Began with chest pain 30 min prior to EMS arrival, pt was given ASA 324 mg and NTG without reliet, Pt states pain is mid chest with radiation to jaw + SOB. This is a 67-year-old female who does have a history of prior coronary disease and stroke. She has been seen a few times within the last few months for chest pain and had a negative stress test and normal ejection fraction by echo approximately 4 months ago. She presented today because she developed some pain in her upper chest at rest is somewhat positional but not significantly pleuritic. She can reproduce the pain somewhat certain positions and pressing on the chest. It does radiate up toward her neck. She received aspirin and nitroglycerin in route to the hospital which really didn't havemuch effect. However when I saw the patient, she really did not have any ongoing pain or at least it was very minimal. She otherwise felt well. She had no associated weakness, shortness of breath, nausea, sweating, or other symptoms. Patient History Allergies Allergen Reactions ??? Compazine [Prochlorperazine Edisylate] ??? Pioneer ??? Pentazocine Hcl ??? Prochlorperazine Maleate ??? Talwin [Pentazocine Lactate] Home Medications: Prior to Admission medications Medication Sig Start Date End Date Taking? Authorizing Provider acetaminophen 325 mg Oral Tab Take 650 mg by mouth every 4 hours as needed for Pain. Yes Provider, Historical ARIPiprazole (ABILIFY) 30 mg Oral Tablet Take [...] times daily (with meals). Yes Provider, Historical insulin glargine (LANTUS) 100 unit/mL SubQ Solution Subcutaneous (Inject under the skin) 28 Units every evening. 02/23/17 Yes Eric Gavin MD isosorbide mononitrate (IMDUR) 60 mg Oral [...] EVERY 12 HOURS 06/28/17Yes Joanna Pierce MD risperiDONE (RISPERDAL) 0.5 mg Oral Tablet Take 0.5 mg by mouth nightly. Yes Provider, Historical sertraline (ZOLOFT) 100 mg Oral Tablet Take 200 mg by mouth daily. Reported on 08/12/2016 Yes Provider, Historical sucralfate (CARAFATE) 100 mg/mL Oral Suspension Take 1 g by mouth 4 times daily (before meals and nightly). Yes Provider, Historical traZODone (DESYREL) 300 mg Oral Tablet Take 1 Tab by mouth nightly. Patient taking differently: Take 150 mg by mouth nightly. 05/12/17 Yes Eric Gavin MD valACYclovir (VALTREX) 1 gram Oral Tablet Take by mouth 3 times daily. Yes Provider, Historical esajy-N-cuehkdfpbvirk (ANTI-GAS ORAL) Take by mouth 3 times daily as needed. Provider, Historical amLODIPine (NORVASC) 2.5 mg Oral Tablet Take 1 Tab by mouth daily. Patient not taking: Reported on 07/22/2017 07/20/17 Sridevi Calle APRN inulin (FIBER CHOICE, INULIN,) 1.5 gram Oral Tablet, Chewable Take by mouth 2 times daily. Provider, Historical Saccharomyces boulardii (FLORASTOR) 250 mg Oral Capsule Take 1 Cap by mouth 2 times daily. Patient not taking: Reported on 07/22/2017 05/12/17 Eric Gavin MD Past Medical History: Past Medical History: Diagnosis Date ??? Atrial flutter (HCC) EPS, AFL Ablation on 12/31/[address] Tee ??? CHF (congestive heart failure) (HCC) ??? COPD (chronic obstructive pulmonary disease) (HCC) ??? DDD (degenerative disc disease) ??? Diabetes mellitus ([facility]) ??? Hypertension ??? Intellectual disability 05/03/2017 ??? IN (myocardial infarction) ([facility]) ??? RLS (restless legs syndrome) ??? Schizoaffective disorder, depressive type ([facility]) 02/19/2017 ??? Stroke ([facility]) 2010 left side affected ??? Suicide attempt ([facility]) ??? Urinary incontinence ??? Yeast infection recurrent Social History: reports that she has never smoked. She has never used smokeless tobacco. She reports that she does not drink alcohol, use drugs, or engage in sexual activity. Family History: Family History Problem Relation Age of Onset ??? Cancer Mother larannitax cancer ??? Heart Disease Sister ??? No [...] AND BRUSHING; Surgeon: Be Brown MD; Location: [facility]; Service: Endoscopy Review of Systems Review [...] and are negative. Physical Exam Blood pressure 158/77, pulse 59, temperature 98.7 ??F (37.1 ??C), temperature source Oral, resp. rate 17, height 5' 8.5 (1.74 m), weight 243 lb 6 oz (110.4 kg), SpO2 (!) 85 %. Physical Exam Constitutional: She is oriented to person, place, and time. She appears well- developed and well-nourished. No distress. HENT: Head: Normocephalic and atraumatic. Mouth/Throat: Oropharynx is clear and moist. Eyes: Conjunctivae and EOM are normal. Pupils are equal, round, and reactive to light. Neck: Normal range of motion. Neck supple. No JVD present. Cardiovascular: Normal rate and regular rhythm. Exam reveals no gallop and no friction rub. Murmur heard. Pulmonary/Chest: Effort normal and breath sounds normal. No respiratory distress. She has no wheezes. She exhibits tenderness. Abdominal: Soft. Bowel sounds are normal. She exhibits no distension. There is no tenderness. Musculoskeletal: She exhibits no edema. Lymphadenopathy: She has no cervical adenopathy. Neurological: She is alert and oriented to person, place, and time. She exhibits normal muscle tone. Coordination normal. Skin: Skin is warm and dry. No rash noted. Psychiatric: She has a normal mood and affect. Her behavior is normal. Nursing note and vitals reviewed. Procedures Radiology/EKG/Labs: Labs Reviewed BASIC METABOLIC PANEL - Abnormal; Notable for the following: Result Value Glucose Lvl 196 (*) All other components within normal limits TROPONIN-T - Normal Narrative: Ingestion of charles doses of biotin (>5 mg/day) taken within 8 hours of drawing blood sample can interfere with this immunoassay test. CBC WITH DIFF TROPONIN-T XR CHEST PA AND LATERAL Final Result No acute finding. EK EKG 12 LEAD Final Result Stationary ECG Study [facility] Interpretive Statements SINUS BRADYCARDIA LOW QRS VOLTAGE IN PRECORDIAL LEADS INFERIOR MYOCARDIAL INFARCTION, PROBABLY OLD ANTEROSEPTAL MYOCARDIAL INFARCTION, PROBABLY OLD No change since previous ECG Electronically Signed On 07-22-2017 13:55:15 EDT by Abundio Marin MD ED Course: Appropriate laboratory and radiology studies reviewed Patient presents with headache atypical sounding symptoms. She does obviously have a history of atherosclerosis. Her EKG is unchanged from previous and initial enzymes are negative. She is fairly adamant about going home unless her tests come back abnormal. She understands that there are limitations and the workup and that even negative blood test may not greens picker on serious heart disease. However, the presentation again is somewhat atypical. If she has 2 sets of negative troponins with no EKG findings or worsening of symptoms, I will respect her wishes to go home and I'll ask her to call her primary doctor's office tomorrow to schedule follow-up within the next week. The patient is signed out to my PA to follow up on the second troponin. The plan is to discharge the patient if the second troponin is negative and if the patient does not have any recurrent or worsening symptoms. If the second troponin is positive for she is feeling worse, she will be admitted to telemetry for further workup and management. ED Clinical Impression: 1. Atypical chest pain Critical Care time Condition at Discharge/Transfer from Department: Stable This chart was completed using voice recognition technology and may contain unintended errors Tr Guevara MD 07/27/17 [id number] * Angela Baldwin PA-C - 07/22/2017 1:26 PM EDT Patient's second troponin is negative. On reevaluation, the patient is resting comfortably in bed and sleeping. No further workup indicated at this time. This chart was completed using voice recognition technology and may contain unintended errors Angela Baldwin PA-C 07/22/17 0103 Cosigned by Tr Guevara MD at 07/24/2017 2:48 PM EDT documented in this encounter Plan of Treatment [...] Procedure Name Priority Date/Time Associated Diagnosis Comments TROPONIN-T STAT 07/22/2017 4:57 PM EDT TROPONIN-T STAT 07/22/2017 2:27 PM EDT CBC WITH DIFF STAT 07/22/2017 2:27 PM EDT BASIC METABOLIC PANEL STAT 07/22/2017 2:27 PM EDT XR CHEST PA AND LATERAL EMMY 07/22/2017 2:18 PM EDT EK EKG 12 LEAD STAT 07/22/2017 1:28 PM EDT SALINE LOCK IV STAT 07/22/2017 1:28 PM EDT documented in this encounter Results * TROPONIN-T (07/22/2017 4:57 PM EDT) Troponin-T <0.01 <0.01 ng/mL 07/22/2017 5:23 PM EDT [facility] Blood VENOUS BLOOD / Unknown Venipuncture / Unknown 07/22/2017 4:57 PM EDT 07/22/2017 5:03 PM EDT Narrative [facility] - 07/22/2017 5:23 PM EDT Ingestion of charles doses of biotin (>5 mg/day) taken within 8 hours of drawing blood sample can interfere with this immunoassay test. us Tr Guevara MD CHEMISTRY ORDERABLES Final Resu lt Performing Organization Address [facility] de Phone Number [facility] [address] [place] [id number] * TROPONIN-T (07/22/2017 2:27 PM EDT) Troponin-T <0.01 <0.01 ng/mL 07/22/2017 2:48 PM EDT [facility] Blood VENOUS BLOOD / Unknown Venipuncture / Unknown 07/22/2017 2:27 PM EDT 07/22/2017 2:29 PM EDT Narrative [facility] - 07/22/2017 2:48 PM EDT Ingestion of charles doses of biotin (>5 mg/day) taken within 8 hours of drawing blood sample can interfere with this immunoassay test. us Tr Guevara MD CHEMISTRY ORDERABLES Final Resu lt Performing Organization Address [facility] Co de Phone Number [facility] [address] [place] [address] * (ABNORMAL) BASIC METABOLIC PANEL (07/22/2017 2:27 PM EDT) [facility] Sodium 140 136 - 145 mmol/L 07/22/2017 2:46 PM EDT [facility] Potassium 3.9 3.5 - 5.0 mmol/L 07/22/2017 2:46 PM EDT [facility] Chloride 101 98 - 107 mmol/L 07/22/2017 2:46 PM EDT [facility] Total CO2 27 22 - 29 mmol/L 07/22/2017 2:46 PM EDT [facility] Anion Gap 12 7 - 16 mmol/L 07/22/2017 2:46 PM T [facility] Calcium 9.0 8.8 - 10.2 mg/dL 07/22/2017 2:46 PM EDT [facility] Glucose Lvl 196(H) 82 - 100 mg/dL 07/22/2017 2:46 PM EDT [facility] BUN 10 8 - 23 mg/dL 07/22/2017 2:46 PM EDT [facility] Creatinine 1.14 0.51 - 1.30 mg/dL 07/22/2017 2:46 PM T [facility] GFR Afr Am 58 mL/min/1.7 3 m2 07/22/2017 2:46 PM [facility] GFR Non Afr Am 50 mL/min/1.7 3 m2 07/22/2017 2:46 PM T [facility] Comment: GFR Afr Am [...] VENOUS BLOOD / Unknown Venipuncture / Unknown 07/22/2017 2:27 PM EDT 07/22/2017 2:29 PM EDT us Tr Guevara MD CHEMISTRY ORDERABLES Final Resu lt Performing Organization Address City/State/[facility] Co de Phone Number [facility] [address] [place] [address] * CBC WITH DIFF (07/22/2017 2:27 PM EDT) WBC 9.9 4.0 - 11.0 x10(3)/mcL 07/22/2017 2:31 PM EDT [facility] RBC 4.31 3.80 - 5.10 x10(6)/mcL 07/22/2017 2:31 PM EDT [facility] Hgb 12.9 12.0 - 15.6 g/dL 07/22/2017 2:31 PM EDT [facility] Hct 38.8 35.7 - 45.9 % 07/22/2017 2:31 PM EDT [facility] MCV 90.1 82.5 - 99.8 fL 07/22/2017 2:31 PM EDT [facility] MCH 29.9 27.0 - 34.3 pg 07/22/2017 2:31 PM EDT [facility] MCHC 33.2 32.1 - 35.3 g/dL 07/22/2017 2:31 PM EDT [facility] RDW 14.3 11.5 - 15.0 % 07/22/2017 2:31 PM EDT [facility] Platelet 157 144 - 423 x10(3)/mcL 07/22/2017 2:31 PM EDT [facility] MPV 9.9 6.8 - 10.8 fL 07/22/2017 2:31 PM EDT [facility] Neut Percent 75.0 % 07/22/2017 2:31 PM EDT [facility] Lymph Percent 15.3 % 07/22/2017 2:31 PM EDT [facility] Willacy Percent 8.0 % 07/22/2017 2:31 PM EDT [facility] Eos Percent 0.9 % 07/22/2017 2:31 PM EDT [facility] Baso Percent 0.8 % 07/22/2017 2:31 PM EDT [facility] Neut # 7.4 1.8 - 7.7 x10(3)/mcL 07/22/2017 2:31 PM EDT [facility] Lymph # 1.5 0.6 - 4.8 x10(3)/[facility] 07/22/2017 2:31 PM EDT [facility] Willacy # 0.8 0.0 - 1.3 x10(3)/[facility] 07/22/2017 2:31 PM EDT [facility] Eos# 0.1 0.0 - 0.5 x10(3)/[facility] 07/22/2017 2:31 PM EDT [facility] Baso # 0.1 0.0 - 0.2 x10(3)/[facility] 07/22/2017 2:31 PM EDT [facility] Blood VENOUS BLOOD / Unknown Venipuncture / Unknown 07/22/2017 2:27 PM EDT 07/22/2017 2:29 PM EDT us Tr Guevara MD HEMATOLOGY ORDERABLES Final Res ult [facility] [address] [place] [address] * XR CHEST PA AND LATERAL (07/22/2017 2:18 PM EDT) Anatomical Region Laterality Modality Chest Radiographic Whit ging 07/22/2017 2:18 PM EDT Impressions 07/22/2017 2:19 PM EDT No acute finding. Narrative 07/22/2017 2:19 PM EDT PA AND LATERAL CHEST X-RAY, ??07/22/2017 2:18 PM CLINICAL HISTORY: ??-CHEST PAIN COMPARISON: ??07/16/2017 PROCEDURE COMMENTS: Frontal and lateral views of the chest. FINDINGS: Heart size enlarged but stable. Lungs are clear. Procedure Note Luis E Wayne MD - 07/22/2017 PA AND LATERAL CHEST X-RAY, 07/22/2017 2:18 PM CLINICAL HISTORY: -CHEST PAIN COMPARISON: 07/16/2017 PROCEDURE COMMENTS: Frontal and lateral views of the chest. FINDINGS: Heart size enlarged but stable. Lungs are clear. IMPRESSION: No acute finding. Tr Guevara MD IMG DIAGNOSTIC IMAGING ORDERABL ES Final Result * EK EKG 12 LEAD (07/22/2017 1:28 PM EDT) Anatomical Region Laterality Modality Electrocardiogra phy 07/22/2017 1:34 PM EDT Impressions 07/22/2017 1:55 PM EDT ? Stationary ECG Study ? [facility] ? Interpretive Statements ? SINUS BRADYCARDIA LOW QRS VOLTAGE IN PRECORDIAL LEADS INFERIOR MYOCARDIAL INFARCTION, PROBABLY OLD ANTEROSEPTAL MYOCARDIAL INFARCTION, PROBABLY OLD No change since previous ECG Electronically Signed On 07-22-2017 13:55:15 EDT by Abundio Marin MD Narrative Procedure Note Abundio Marin MD - 07/22/2017 IMPRESSION Stationary ECG Study [facility] Interpretive Statements SINUS BRADYCARDIA LOW QRS VOLTAGE IN PRECORDIAL LEADS INFERIOR MYOCARDIAL INFARCTION, PROBABLY OLD ANTEROSEPTAL MYOCARDIAL INFARCTION, PROBABLY OLD No change since previous ECG Electronically Signed On 07-22-2017 13:55:15 EDT by Abundio Marin MD us Tr Guevara MD IMG ECG ORDERABLES Final Result documented in this encounter Visit Diagnoses Diagnosis Atypical chest pain- Primary Other chest pain documented in this encounter Administered Medications Inactive Administered Medications - up to 1 most recent administrations Medication Order MAR Action Action Date Dose Rate Site acetaminophen (TYLENOL) tablet 1,000 mg 1,000 mg, Oral, ONCE, 1 dose, On Francine 07/22/17 at 1400, Maximum adult dose of acetaminophen is 4000 mg from all sources in 24 hours. Given 07/22/2017 2:27 PM EDT 1,000 mg sodium chloride 0.9% IV line flush 50 mL 50 mL, Intravenous, at 150-600 mL/hr, PRN, Starting on Francine 07/22/17 at 1326, Until Wed07/23/17 at 0009, Line Care, Flush with a minimum of 20 mL after IVPB to insure complete administration of the dose. May use the saline infusion to back flush IVPB tubing as needed., Use this order to document priming and flushing IV line after medication administration. sodium chloride 0.9% syringe 5 mL 5 mL, Intravenous, PRN, Starting on Francine 07/22/17 at 1326, Until Wed07/23/17 at 0009, Line Care, Flush with 5 mL saline pre/post IVP, and 5 mL prior to IVPB or blood product administration. Protocol for PERIPHERAL IV saline lock maintenance, flush with 3-5 mL saline syringe every 8 hours., Flush every shift or after IV medication documented in this encounter Active and Recently Administered Medications Times are shown in EDT. Scheduled Medication Order 07/20/2017 07/21/2017 07/22/2017 acetaminophen (TYLENOL) tablet 1,000 mg (COMPLETED) 1,000 mg, Oral, ONCE, 1 dose, On Francine 07/22/17 at 1400, Maximum adult dose of acetaminophen is 4000 mg from all sources in 24 hours. 1427 (Given - Provid er: Manju Cortes) PRN Medication Order 07/20/2017 07/21/2017 07/22/2017 sodium chloride 0.9% IV line flush 50 mL 50 mL, Intravenous, at 150-600 mL/hr, PRN, Starting on Francine 07/22/17 at 1326, Until Wed07/23/17 at 0009, Line Care, Flush with a minimum of 20 mL after IVPB to insure complete administration of the dose. May use the saline infusion to back flush IVPB tubing as needed., Use this order to document priming and flushing IV line after medication administration. sodium chloride 0.9% syringe 5 mL 5 mL, Intravenous, PRN, Starting on Francine 07/22/17 at 1326, Until Wed07/23/17 at 0009, Line Care, Flush with 5 mL saline [...] 0.9% IV line flush 50 mL 1 07/22/2017 sodium chloride 0.9% syringe 5 mL 1 018 Nursing Count Last Ordered Date First Orde red Date CARDIAC MONITORING 1 07/22/2017 IV Count Last Ordered Date First Orde red Date SALINE LOCK IV 1 07/22/2017 documented in this encounter Additional Health Concerns Assessment Noted Time A fall risk assessment has been complete d for the patient 04/21/2017 10:52 AM EST documented as of this encounter Care Teams Supervisor [employer] Relationship Specialty Start Date End Date Sharee Segovia APRN [address] [place] [phone] PCP - General Nurse Practitioner-Family 09/21/16 documented as of this encounter
--- OUTSIDE RECORDS SUMMARY | 2024-02-16 14:55 | XMS_ITS | Encounter Summary ---
Author Organization [place] [address] Care Team Providers Care Hot Mix Operator Name Role Phone Sharee Segovia APRN Primary Care Provider [phone] Reason for Visit * Reason Comments Hypertension CPTA: EMS TRANSPORT. PT BLURRED VISION X2 WKS, NO WORSE. PT RECENT CHANGE OF BP MEDICINE, WITH SYSTOLIC IN 180'S PER EMS. PT COMPLAINS OF SLIGHT HEADACHE. Encounter Details Date Type Department Care Team (Late st Contact Info) Description 07/16/2017 10:35 AM EDT - 07/16/2017 2:58 PM EDT Emergency [facility] [address] [place] [address]. [place] [address] Nasir Yanez MD [address] [place] [id number] Hypertensive urgency (Primary Dx); Nonintractable headache, unspecified chronicity pattern, unspecified headache type Discharge Disposition: Home or Self Care [...] Sign Reading Time Taken Comments Blood Pressure 171/84 07/16/2017 1:46 PM EDT Pulse 51 07/16/2017 1:46 PM EDT Temperature 36.5 ??C (97.7 ??F) 07/16/2017 10:31 AM E DT Respiratory Rate 16 07/16/2017 1:46 PM EDT Oxygen Saturation 100% 07/16/2017 1:13 PM EDT Inhaled Oxygen Concentration - - Weight 109.8 kg (242 lb) 07/16/2017 10:31 AM EDT Height - - Body Mass Index 36.8 07/15/2017 2:39 PM EDT documented in this encounter Discharge Instructions * Discharge Instructions* Nasir Yanez MD - 07/16/2017 1:24 PM EDT Repeat clonidine twice daily as prescribed. Check your blood pressure twice daily. Do not take clonidine as systolic less than 130. Return if worse. * Attachments The following attachments cannot be sent through Care Everywhere. * GENERAL HEADACHE WITHOUT CAUSE (BRUNEIAN) * HYPERTENSION, [id number] (BRUNEIAN) documented in this encounter Medications at Time [...] nightly). 8 documented as of this encounter Ordered Prescriptions Prescription Sig Dispense Quantity Refills Last Filled Start Date End Date cloNIDine HCl (CATAPRES) 0.1 mg Oral Tablet Take 1 Tab by mouth 2 times daily. Hold for SBP <90 28 Tab 07/16/2017 07/20/2017 documented in this encounter Discharge Disposition Disposition Code Departure Means Destination Home or Self Nursing Home documented in this encounter ED Notes * Shane Harris RN - 07/16/2017 2:18 PM EDT RN FROM [facility] UNABLE TO COME INSTALLATION COORDINATOR PT. INSTRUCTED TO CALL FOR FEDERATED TRANSPORTATION * Shane Harris RN - 07/16/2017 2:06 PM EDT RN FROM [facility] IS COMING TO GET PT. * Shane Harris RN - 07/16/2017 10:58 AM EDT THIS NURSE ATTEMPTED X2 IV'S W/O SUCCESS * Nasir Yanez MD - 07/16/2017 10:29 AM EDT Chief Complaint Patient presents with ??? Hypertension CPTA: EMS TRANSPORT. PT BLURRED VISION X2 WKS, NO WORSE. PT RECENT CHANGE OF BP MEDICINE, WITH SYSTOLIC IN 180'S PER EMS. PT COMPLAINS OF SLIGHT HEADACHE. Patient has a history of COPD, CHF, diabetes mellitus, atrial flutter, and schizophrenia presents here with headache. According to report from the retirement she lives in patient has had blood pressure elevated to 180s. Patient describes a headache. She denies chest pain no abdominal pain. During transfer paperwork 3 days ago was increased from lisinopril 5 mg a day to 20 mg a day. 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 Compazine [Prochlorperazine Edisylate] ??? Mullens ??? Pentazocine Hcl ??? Prochlorperazine Maleate ??? Talwin [Pentazocine Lactate] Home Medications: Prior to Admission medications Medication Sig Start Date End Date Taking? Authorizing Provider ARIPiprazole (ABILIFY) 30 mg Oral Tablet Take 1 Tab by mouth daily. 02/23/17 Yes Eric Gavin MD aspirin 81 mg Oral Tablet, Chewable Take 1 Tab by mouth daily. 04/14/17 Yes Sherif Bartholomew MD ferrous sulfate 325 mg (65 mg iron) [...] every evening. 02/23/17 Yes Eric Gavin MD lamoTRIgine (LAMICTAL) 25 mg Oral Tablet Take 1 Tab by mouth 2 times daily. 05/12/17 Yes Eric Gavin MD loperamide (IMODIUM) 2 mg Oral Capsule Take 2 mg by mouth 2 times daily. Yes Provider, Historical metFORMIN XR (GLUCOPHAGE-XR) 500 mg Oral Tablet Sustained Release 24 hr Take 500 mg by mouth daily (with breakfast). Yes Provider, Historical metoprolol (LOPRESSOR) 50 mg Oral Tablet TAKE 1 TABLET BY MOUTH 2 TIMES DAILY 01/26/17 Yes Joanan Pierce MD pantoprazole (PROTONIX) 40 mg Oral Tablet, Delayed Release (E.C.) TAKE ONE TABLET BY MOUTH ONCE DAILY 11/26/16 Yes Joanna Pierce MD RANEXA 1,000 mg Oral Tablet Sustained Release 12 hr TAKE ONE TABLET BY MOUTH EVERY 12 HOURS 06/28/17Yes Joanna Pierce MD risperiDONE (RISPERDAL) 0.5 mg Oral Tablet Take 0.5 mg by mouth 2 times daily. Yes Provider, Historical Saccharomyces boulardii (FLORASTOR) 250 mg Oral Capsule Take 1 Cap by mouth 2 times daily. 05/12/17 Yes Eric Gavin MD sertraline (ZOLOFT) 100 mg Oral Tablet Take 200 mg by mouth daily. Reported on 08/12/2016 Yes Provider, Historical sucralfate (CARAFATE) 100 mg/mL Oral Suspension Take 1 g by mouth 4 times daily (before meals and nightly). Yes Provider, Historical traZODone (DESYREL) 300 mg Oral Tablet Take 1 Tab by mouth nightly. 05/12/17 Yes Eric Gavin MD acetaminophen 325 mg Oral Tab Take 650 mg by mouth every 4 hours as needed for Pain. Provider, Historical atorvastatin (LIPITOR) 20 mg Oral Tablet TAKE ONE TABLET BY MOUTH NIGHTLY 03/24/17 Joanna Pierce MD hydrOXYzine (VISTARIL) 25 mg Oral Capsule Take 1 Cap by mouth every 6 hours as needed. 05/12/17 Eric Gavin MD isosorbide mononitrate (IMDUR) 60 mg Oral Tablet Sustained Release 24 hr TAKE ONE TABLET BY MOUTH ONCE DAILY 03/24/17 Joanna Pierce MD lisinopril (PRINIVIL;ZESTRIL) 5 mg Oral Tablet Take 5 mg by mouth daily. Provider, Historical nitroGLYCERIN (NITROSTAT) 0.4 mg SL Tablet, Sublingual Place 1 Tab under the tongue every 5 minutesas needed for Chest pain. 11/19/16 Sharee Segovia ARNP Past Medical History: Past Medical History: Diagnosis Date ??? Atrial flutter (HCC) EPS, AFL Ablation on 12/31/[address] Tee ??? CHF (congestive heart failure) (HCC) ??? COPD (chronic obstructive pulmonary disease) (HCC) ??? DDD (degenerative disc disease) ??? Diabetes mellitus (HCC) ??? Hypertension ??? Intellectual disability 05/03/2017 ??? [place] (myocardial infarction) (HCC) ??? RLS (restless legs [...] shortness of breath. Cardiovascular: Negative for chest pain, palpitations and leg swelling. Gastrointestinal: Negative for abdominal pain, diarrhea, nausea and vomiting. Genitourinary: Negative for dysuria and frequency. Musculoskeletal: Negative. Skin: Negative for rash. Neurological: Positive for headaches. Psychiatric/Behavioral: Negative. All other systems reviewed and are negative. Physical Exam Blood pressure 183/67, pulse 54, temperature 97.7 ??F (36.5 ??C), temperature source Oral, resp. rate 16, weight 242 lb (109.8 kg), SpO2 100 %. Physical Exam Constitutional: She is oriented [...] has no cervical adenopathy. Neurological: She is oriented to person, place, and time. She does answer questions. She is oriented ??3. Grossly moving all extremities. Skin: Skin is warm and dry. No rash noted. Psychiatric: She has a normal mood and affect. Nursing note and vitals reviewed. Procedures Radiology/EKG/Labs: EKG Interpretation Interpreted by me Rhythm: Sinus bradycardia Rate: 55 [place]: normal Ectopy: none Conduction: normal ST Segments: no acute change T Waves: no acute change Q Waves: none Clinical Impression: no acute changes and normal EKG Results for orders placed or performed during the hospital encounter of 07/16/17 XR CHEST PA AND LATERAL Narrative PA AND LATERAL CHEST X-RAY, 07/16/2017 11:29 AM CLINICAL HISTORY: -HYPERTENSION COMPARISON: 04/10/2017 PROCEDURE COMMENTS: Frontal and lateral views of the chest. FINDINGS: Stable heart size. Normal pulmonary vascularity. No pneumonia or effusion. No pneumothorax. Impression No acute finding. CT HEAD WO CONTRAST Narrative CT HEAD WO CONTRAST 07/16/2017 11:43 AM CLINICAL HISTORY: -Headache, positional COMPARISON: 07/11/2017 PROCEDURE COMMENTS: Routine noncontrast head CT with multiplanar reconstructions. Automated exposure control for dose reduction was used. CTDIvol: 48.3 mGy. DLP: 810 mGy-cm. FINDINGS: Ventricular size and configuration are normal. Prominent chronic small vessel white matter ischemic changes redemonstrated as is an old, small right occipital lobe infarct. Old lacunar infarct left lentiform nucleus. No CT evidence of recent infarct. Mucosal thickening right sphenoid sinus has increased a little. Hyperostosis of the meza of the right sphenoid sinus and right maxillary sinus due to remote/chronic sinusitis. Included paranasal sinuses and the tympanomastoid cavities otherwise are clear. Normal variant pneumatization of both petrous apices. Impression No acute abnormality. Old infarcts as described. CBC WITH DIFF Result Value Ref Range WBC 6.7 4.0 - 11.0 x10(3)/mcL RBC 4.26 3.80 - 5.10 x10(6)/mcL Hgb 12.8 12.0 - 15.6 gm/dL Hct 38.0 35.7 - 45.9 % MCV 89.2 82.5 - 99.8 fL MCH 30.1 27.0 - 34.3 pg MCHC 33.7 32.1 - 35.3 gm/dL RDW 14.0 11.5 - 15.0 % Platelet 200 144 - 423 x10(3)/mcL MPV 9.4 6.8 - 10.8 fL Neut Percent 67.1 % Lymph Percent 24.1 % Pike Percent 4.9 % Eos Percent 2.9 % Baso Percent 1.0 % Neut # 4.5 1.8 - 7.7 x10(3)/mcL Lymph # 1.6 0.6 - 4.8 x10(3)/mcL Pike # 0.3 0.0 - 1.3 x10(3)/mcL Eos# 0.2 0.0 - 0.5 x10(3)/mcL Baso # 0.1 0.0 - 0.2 x10(3)/mcL BASIC METABOLIC PANEL Result Value Ref Range Sodium 142 136 - 145 mmol/L Potassium 4.1 3.5 - 5.0 mmol/L Chloride 104 98 - 107 mmol/L Total CO2 25 22 - 29 mmol/L Anion Gap 13 7 - 16 mmol/L Calcium 9.3 8.8 - 10.2 mg/dL Glucose Lvl 237 (H) 82 - 100 mg/dL BUN 10 8 - 23 mg/dL Creatinine 1.03 0.51 - 1.30 mg/dL GFR Afr Am 65 mL/min/1.73 m2 GFR Non Afr Am 57 mL/min/1.73 m2 HEPATIC FUNCTION PANEL Result Value Ref Range Total Protein 6.8 6.4 - 8.3 gm/dL Albumin 3.4 3.2 - 4.6 gm/dL Bili Direct <0.2 0.0 - 0.3 mg/dL Bili Total 0.3 0.1 - 1.3 mg/dL AST 11 <=40 IU/L ALT 8 <=41 IU/L Alk Phos 145 (H) 35 - 104 IU/L NT PROBNP Result Value Ref Range NT Pro-BNP 439 (H) <=319 pg/mL Narrative An NT pro-BNP level less than 300 pg/mL in any patient, regardless of age, effectively rules out acute CHF with a 99% negative predictive value. PARTIAL THROMBOPLASTIN TIME Result Value Ref Range PTT 29.0 26.0 - 36.4 second(s) PT / INR Result Value Ref Range PT 12.9 (H) 9.7 - 12.5 second(s) INR 1.12 (H) 0.84 - 1.08 no units TROPONIN-T Result Value Ref Range Troponin-T <0.01 <0.01 ng/mL Narrative Ingestion of charles doses of biotin (>5 mg/day) taken within 8 hours of drawing blood sample can interfere with this immunoassay test. EK EKG 12 LEAD Impression Stationary ECG Study [facility] Interpretive Statements SINUS BRADYCARDIA LOW QRS VOLTAGE IN PRECORDIAL LEADS INFERIOR MYOCARDIAL INFARCTION, PROBABLY OLD ANTEROSEPTAL MYOCARDIAL INFARCTION, PROBABLY OLD Electronically Signed On 07-16-2017 17:39:52 EDT by Abundio Marin MD ED Course: Appropriate laboratory and radiology studies reviewed Patient after arrival in the ED given clonidine 0.1 orally. Blood pressure eventually did seem to be improving. Headache seems to be improved. Workup is unremarkable. There are any increased her lisinopril at the retirement setting. I did write her for clonidine. Follow-up with family doctor. Record blood pressures twice daily. Return if worse. ED Clinical Impression: Hypertensive urgency (primary encounter diagnosis) Nonintractable headache, unspecified chronicity pattern, unspecified headache type Critical Care time Condition at Discharge/Transfer from Department: Stable This chart was completed using voice recognition technology and may contain unintended errors Nasir Yanez MD 07/22/17 0038 documented in this encounter Plan of Treatment [...] Procedure Name Priority Date/Time Associated Diagnosis Comments CT HEAD WO CONTRAST STAT 07/16/2017 1 1:43 AM EDT XR CHEST PA AND LATERAL EMMY 07/17/19 18 11:29 AM EDT TROPONIN-T STAT 07/16/2017 11:06 AM EDT PARTIAL THROMBOPLASTIN TIME STAT 07/16/2017 11:06 AM EDT PT / INR STAT 07/16/2017 11:06 AM EDT CBC WITH DIFF STAT 07/16/2017 11:06 AM EDT NT PROBNP STAT 07/16/2017 11:06 AM EDT HEPATIC FUNCTION PANEL STAT 8 11:06 AM EDT BASIC METABOLIC PANEL STAT 07/16/2017 11:06 AM EDT EK EKG 12 LEAD STAT 07/16/2017 10:40 AM EDT documented in this encounter Results * CT HEAD WO CONTRAST (07/16/2017 11:43 AM EDT) Anatomical Region Laterality Modality Head Computed Tomogra phy 07/16/2017 11:4 3 AM EDT Impressions 07/16/2017 11:51 AM EDT No acute abnormality. Old infarcts as described. Narrative 07/16/2017 11:[address] HEAD WO CONTRAST ??07/16/2017 11:43 AM ?? CLINICAL HISTORY: ??-Headache, positional COMPARISON: ??07/11/2017 PROCEDURE COMMENTS: Routine noncontrast head CT with multiplanar reconstructions. Automated exposure control for dose reduction was used. CTDIvol: 48.3 mGy. DLP: 810 mGy-cm. FINDINGS: ??Ventricular size and configuration are normal. Prominent chronic small vessel white matter ischemic changes redemonstrated as is an old, small right occipital lobe infarct. Old lacunar infarct left lentiform nucleus. No CT evidence of recent infarct. Mucosal thickening right sphenoid sinus has increased a little. Hyperostosis of the meza of the right sphenoid sinus and right maxillary sinus due to remote/chronic sinusitis. Included paranasal sinuses and the tympanomastoid cavities otherwise are clear. Normal variant pneumatization of both petrous apices. Procedure Note Nathanael Archibald MD - 07/16/2017 CT HEAD WO CONTRAST 07/16/2017 11:43 AM CLINICAL HISTORY: -Headache, positional COMPARISON: 07/11/2017 PROCEDURE COMMENTS: Routine noncontrast head CT with multiplanar reconstructions. Automated exposure control for dose reduction was used. CTDIvol: 48.3 mGy. DLP: 810 mGy-cm. FINDINGS: Ventricular size and configuration are normal. Prominentchronic small vessel white matter ischemic changes redemonstrated as is an old,small right occipital lobe infarct. Old lacunar infarct left lentiform nucleus.No CT evidence of recent infarct. Mucosal thickening right sphenoid sinus has increased a little. Hyperostosis of the meza of the right sphenoid sinusand right maxillary sinus due to remote/chronic sinusitis. Includedparanasal sinuses and the tympanomastoid cavities otherwise are clear. Normalvariant pneumatization of both petrous apices. IMPRESSION: No acute abnormality. Old infarcts as described. us Nasir Yanez MD [facility] [place] ORDERABLES Final Result * XR CHEST PA AND LATERAL (07/16/2017 11:29 AM EDT) Anatomical Region Laterality Modality Chest Radiographic [place] 07/16/2017 11:2 9 AM EDT Impressions 07/16/2017 11:33 AM EDT No acute finding. Narrative 07/16/2017 11:33 AM EDT PA AND LATERAL CHEST X-RAY, ??07/16/2017 11:29 AM CLINICAL HISTORY: ??-HYPERTENSION COMPARISON: ??04/10/2017 PROCEDURE COMMENTS: Frontal and lateral views of the chest. FINDINGS: Stable heart size. Normal pulmonary vascularity. ??No pneumonia or effusion. ??No pneumothorax. Procedure Note Cory Vallejo MD - 07/16/2017 PA AND LATERAL CHEST X-RAY, 07/16/2017 11:29 AM CLINICAL HISTORY: -HYPERTENSION COMPARISON: 04/10/2017 PROCEDURE COMMENTS: Frontal and lateral views of the chest. FINDINGS: Stable heart size. Normal pulmonary vascularity. No pneumonia oreffusion. No pneumothorax. IMPRESSION: No acute finding. us Nasir Yanez MD [facility] [place]ING ORDERABL ES Final Result * TROPONIN-T (07/16/2017 11:06 AM EDT) Troponin-T <0.01 <0.01 ng/mL 07/16/2017 11:41 AM EDT [facility] Blood VENOUS BLOOD / Unknown Venipuncture / Unknown 07/16/2017 11:06 AM EDT 07/16/2017 11:09 AM EDT Narrative [facility] - 07/16/2017 11:41 AM EDT Ingestion of charles doses of biotin (>5 mg/day) taken within 8 hours of drawing blood sample can interfere with this immunoassay test. us Nasir Yanez MD CHEMISTRY ORDERABLES Final Resu lt Performing Organization Address [facility] de Phone Number [facility] [address] [place] [address] * (ABNORMAL) PT / INR (07/16/2017 11:06 AM EDT) PT 12.9(H) 9.7 - 12.5 second(s) 07/16/2017 11:21 AM EDT [facility] INR 1.12(H) 0.84 - 1.08 no units 07/16/2017 11:21 AM EDT [facility] Comment: Level of Therapy ? Indications ?Target INR Range Standard Dose Treatment and prophylaxis of venous ? 2.0 - 3.0 ? thrombosis, pulmonary embolism High Dose ? High risk patients with mechanical ? 2.5 - 3.5 ? heart valves Blood VENOUS BLOOD / Unknown Venipuncture / Unknown 07/16/2017 11:06 AM EDT 07/16/2017 11:09 AM EDT Nasir Yanez MD HEMATOLOGY ORDERABLES Final Res ult Performing Organization Address [facility] de Phone Number [facility] [address] [place] [address] * PARTIAL THROMBOPLASTIN TIME (07/16/2017 11:06 AM EDT) PTT 29.0 26.0 - 36.4 second(s) 07/16/2017 11:21 AM EDT [facility] Comment: Therapeutic range for unfractionated heparin: 53.0 [...] VENOUS BLOOD / Unknown Venipuncture / Unknown 07/16/2017 11:06 AM EDT 07/16/2017 11:09 AM EDT us Nasir Yanez MD HEMATOLOGY ORDERABLES Final Res ult Performing Organization Address [facility] de Phone Number [facility] [address] [place] [address] * (ABNORMAL) NT PROBNP (07/16/2017 11:06 AM EDT) NT Pro-BNP 439(H) <=319 pg/mL 07/16/2017 11:41 AM EDT [facility] Blood VENOUS BLOOD / Unknown Venipuncture / Unknown 07/16/2017 11:06 AM EDT 07/16/2017 11:09 AM EDT Narrative [facility] - 07/16/2017 11:41 AM EDT An NT pro-BNP level less than 300 pg/mL in any patient, regardless of age, effectively rules out acute CHF with a 99% negative predictive value. us Nasir Yanez MD CHEMISTRY ORDERABLES Final Resu lt Performing Organization Address [facility] de Phone Number [facility] [address] [place] [address] * (ABNORMAL) HEPATIC FUNCTION PANEL (07/16/2017 11:06 AM EDT) Total Protein 6.8 6.4 - 8.3 gm/dL 07/16/2017 11:30 AM EDT [facility] Albumin 3.4 3.2 - 4.6 gm/dL 07/16/2017 11:30 AM EDT [facility] Bili Direct <0.2 0.0 - 0.3 mg/dL 07/16/2017 11:30 AM EDT [facility] Bili Total 0.3 0.1 - 1.3 mg/dL 07/16/2017 11:30 AM EDT [facility] AST 11 <=40 IU/L 07/16/2017 11:30 AM EDT [facility] ALT 8 <=41 IU/L 07/16/2017 11:30 AM EDT [facility] Alk Phos 145(H) 35 - 104 IU/L 07/16/2017 11:30 AM EDT [facility] Blood VENOUS BLOOD / Unknown Venipuncture / Unknown 07/16/2017 11:06 AM EDT 07/16/2017 11:09 AM EDT us Nasir Yanez MD CHEMISTRY ORDERABLES Final Resu lt [facility] [address] [place] [address] * (ABNORMAL) BASIC METABOLIC PANEL (07/16/2017 11:06 AM EDT) Sodium 142 136 - 145 mmol/L 07/16/2017 11:30 AM EDT [facility] Potassium 4.1 3.5 - 5.0 mmol/L 07/16/2017 11:30 AM EDT [facility] Chloride 104 98 - 107 mmol/L 07/16/2017 11:30 AM EDT [facility] Total CO2 25 22 - 29 mmol/L 07/16/2017 11:30 AM EDT [facility] Anion Gap 13 7 - 16 mmol/L 07/16/2017 11:30 AM EDT [facility] Calcium 9.3 8.8 - 10.2 mg/dL 07/16/2017 11:30 AM EDT [facility] Glucose Lvl 237(H) 82 - 100 mg/dL 07/16/2017 11:30 AM EDT [facility] BUN 10 8 - 23 mg/dL 07/16/2017 11:30 AM EDT [facility] Creatinine 1.03 0.51 - 1.30 mg/dL 07/16/2017 11:30 AM EDT [facility] GFR Afr Am 65 mL/min/1.7 3 m2 07/16/2017 11:30 AM EDT [facility] GFR Non Afr Am 57 mL/min/1.7 3 m2 07/16/2017 11:30 AM EDT [facility] Comment: GFR Afr Am and GFR Non [...] VENOUS BLOOD / Unknown Venipuncture / Unknown 07/16/2017 11:06 AM EDT 07/16/2017 11:09 AM EDT us Nasir Yanez MD CHEMISTRY ORDERABLES Final Resu lt [facility] [address] [place] [address] * CBC WITH DIFF (07/16/2017 11:06 AM EDT) WBC 6.7 4.0 - 11.0 x10(3)/mcL 07/16/2017 11:12 AM EDT [facility] RBC 4.26 3.80 - 5.10 x10(6)/mcL 07/16/2017 11:12 AM EDT [facility] Hgb 12.8 12.0 - 15.6 gm/dL 07/16/2017 11:12 AM EDT [facility] Hct 38.0 35.7 - 45.9 % 07/16/2017 11:12 AM EDT [facility] MCV 89.2 82.5 - 99.8 fL 07/16/2017 11:12 AM EDT [facility] MCH 30.1 27.0 - 34.3 pg 07/16/2017 11:12 AM EDT [facility] MCHC 33.7 32.1 - 35.3 gm/dL 07/16/2017 11:12 AM EDT [facility] RDW 14.0 11.5 - 15.0 % 07/16/2017 11:12 AM EDT [facility] Platelet 200 144 - 423 x10(3)/mcL 07/16/2017 11:12 AM EDT [facility] MPV 9.4 6.8 - 10.8 fL 07/16/2017 11:12 AM EDT [facility] Neut Percent 67.1 % 07/16/2017 11:12 AM EDT [facility] Lymph Percent 24.1 % 07/16/2017 11:12 AM EDT [facility] Pike Percent 4.9 % 07/16/2017 11:12 AM EDT [facility] Eos Percent 2.9 % 07/16/2017 11:12 AM EDT [facility] Baso Percent 1.0 % 07/16/2017 11:12 AM EDT [facility] Neut # 4.5 1.8 - 7.7 x10(3)/mcL 07/16/2017 11:12 AM EDT [facility] Lymph # 1.6 0.6 - 4.8 x10(3)/mcL 07/16/2017 11:12 AM EDT [facility] Pike # 0.3 0.0 - 1.3 x10(3)/mcL 07/16/2017 11:12 AM EDT [facility] Eos# 0.2 0.0 - 0.5 x10(3)/mcL 07/16/2017 11:12 AM EDT [facility] Baso # 0.1 0.0 - 0.2 x10(3)/mcL 07/16/2017 11:12 AM EDT [facility] Blood VENOUS BLOOD / Unknown Venipuncture / Unknown 07/16/2017 11:06 AM EDT 07/16/2017 11:09 AM EDT us Nasir Yanez MD HEMATOLOGY ORDERABLES Final Res ult [facility] [address] [place] [id number] * EK EKG 12 LEAD (07/16/2017 10:40 AM EDT) Anatomical Region Laterality Modality Electrocardiogra phy 07/16/2017 10:5 0 AM EDT Impressions 07/16/2017 5:39 PM EDT ? Stationary ECG Study ? [place] [facility] ? Interpretive Statements ? SINUS BRADYCARDIA LOW QRS VOLTAGE IN PRECORDIAL LEADS INFERIOR MYOCARDIAL INFARCTION, PROBABLY OLD ANTEROSEPTAL MYOCARDIAL INFARCTION, PROBABLY OLD Electronically Signed On 07-16-2017 17:39:52 EDT by Abundio Marin MD Narrative Procedure Note Abundio Marin MD - 07/16/2017 IMPRESSION Stationary ECG Study [place] [facility]y Interpretive Statements SINUS BRADYCARDIA LOW QRS VOLTAGE IN PRECORDIAL LEADS INFERIOR MYOCARDIAL INFARCTION, PROBABLY OLD ANTEROSEPTAL MYOCARDIAL INFARCTION, PROBABLY OLD Electronically Signed On 07-16-2017 17:39:52 EDT by Abundio Marin MD Nasir Yanez MD IMG ECG ORDERABLES Final Result documented in this encounter Visit Diagnoses Diagnosis Hypertensive urgency- Primary Unspecified essential hypertension Nonintractable headache, unspecified chronicity pattern, unspecified headache type documented in this encounter Administered Medications Inactive Administered Medications - up to 1 most recent administrations Medication Order MAR Action Action Date Dose Rate Site cloNIDine HCl (CATAPRES) tablet 0.1 mg 0.1 mg, Oral, ONCE, 1 dose, On Wed07/16/17 at 1115 Given 07/16/2017 11:13 AM EDT 0.1 mg sodium chloride 0.9% IV line flush 50 mL 50 mL, Intravenous, at 999 mL/hr, PRN, Starting on Wed07/16/17 at 1040, Until Wed07/16/17 at 1859, Line Care, Flush with 50 mL after IVPB to insure complete administration of the dose. May use the saline infusion to back flush IVPB tubing as needed., Use this order to document priming and flushing IV line after medication administration. sodium chloride 0.9% syringe 5-10 mL 5-10 mL, Intravenous, PRN, Starting on Wed07/16/17 at 1040, Until Wed07/16/17 at 1859, Line Care, Flush with 5 mL saline pre/post IVP, and 5 mL prior to IVPB or blood product administration. Protocol for PERIPHERAL IV saline lock maintenance, flush with 3-5 mL saline syringe every 8 hours., Flush every shift or after IV medication documented in this encounter Historical Medications * This list may reflect changes made after this encounter. risperiDONE (RISPERDAL) 0.5 mg Oral Tablet Take 0.5 mg by mouth nightly. 07/27/2017 metFORMIN XR (GLUCOPHAGE-XR) 500 mg Oral Tablet Sustained Release 24 hr Take 500 mg by mouth daily (with breakfast). 08/14/2018 loperamide (IMODIUM) 2 mg Oral Capsule Take 2 mg by mouth 3 times daily as needed. 08/14/2018 sucralfate (CARAFATE) 100 mg/mL Oral Suspension Take 1 g by mouth 4 times daily (before meals and nightly). 07/24/2017 added in this encounter Active and Recently Administered Medications Times are shown in EDT. Scheduled Medication Order 2017 07/15/2017 07/16/2017 cloNIDine HCl (CATAPRES) tablet 0.1 mg (COMPLETED) 0.1 mg, Oral, ONCE, 1 dose, On Wed07/16/17 at 1115 1113 (Given - Provid er: Shane Harris RN) PRN Medication Order 2017 07/15/2017 07/16/2017 sodium chloride 0.9% IV line flush 50 mL 50 mL, Intravenous, at 999 mL/hr, PRN, Starting on Wed07/16/17 at 1040, Until Wed07/16/17 at 1859, Line Care, Flush with 50 mL after IVPB to insure complete administration of the dose. May use the saline infusion to back flush IVPB tubing as needed., Use this order to document priming and flushing IV line after medication administration. sodium chloride 0.9% syringe 5-10 mL 5-10 mL, Intravenous, PRN, Starting on Wed07/16/17 at 1040, Until Wed07/16/17 at 1859, Line Care, Flush with 5 mL saline [...] 0.9% IV line flush 50 mL 1 07/16/2017 sodium chloride 0.9% syringe 5-10 mL 1 07/06 documented in this encounter Additional Health Concerns Assessment Noted Time A fall risk assessment has been complete d for the patient 04/21/2017 10:52 AM EST documented as of this encounter Care Teams Hot Mix Operator Relationship Specialty Start Date End Date Sharee Segovia APRN [address] [place] [phone] PCP - General Nurse Practitioner-Family 09/21/16 documented as of this encounter
--- OUTSIDE RECORDS SUMMARY | 2024-02-16 14:55 | XMS_ITS | Encounter Summary ---
Author Organization [place] [address] Care Team Providers Care Clinical Safety Manager Name Role Phone Sharee Segovia APRN Primary Care Provider [phone] Reason for Visit * Reason Comments Medication Refill Encounter Details Date Type Department Care Team (Late st Contact Info) Description 06/28/2017 Refill [facility] [address] [place] [address] Joanna Hitchcock MD Medication Refill Social [...] BY MOUTH EVERY 12 HOURS 60 Tab 06/28/2017 08/04/2017 documented in this encounter Plan of Treatment Not on file documented as of this encounter Goals Goal Patient Goal Type Associated Problems Recent Progress Patient-Stated? Author Blood Pressure < 140/90 Blood Pressure 124/52(2018 4:00 PM EDT) No iSlva Mathew RMA BMI (Calculated) < 30 General [...] TABLET BY MOUTH EVERY 12 HOURS Reorder 05/26/2017 06/28/2017 documented as of this encounter Additional Health Concerns Assessment Noted Time A fall risk assessment has been complete d for the patient 04/21/2017 10:52 AM EST documented as of this encounter Care Teams Clinical Safety Manager Relationship Specialty Start Date End Date Sharee Segovia APRN [address] [place] [phone] PCP - General Nurse Practitioner-Family 09/21/16 documented as of this encounter
--- OUTSIDE RECORDS SUMMARY | 2024-02-16 14:55 | XMS_ITS | Encounter Summary ---
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, with long-term current use of insulin 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 Sharee Segovia APRN [address] [place] [address] Phone: tel: fax: [facility] [place] [address] [place] [address] Phone: tel: fax: Referral ID Status Reason Start Date Expiration Date V isits Requested Visits Authorized [id number] Closed Specialty Services Required 10/22/2016 10/22/2017 [id number] [phone] Encounter Details Date Type Department Care Team (Late st Contact Info) Description 07/15/2017 2:20 PM EDT Office Visit [facility] [place] [facility] [place] [address] [place] [address] Mayo Muse, DPM [address] [facility] [address] [place] [id number] Pre-ulcerative calluses (Primary Dx); 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 (HCC); History of CVA (cerebrovascular accident); Onychomycosis; Pain in toes of both feet [...] - Inhaled Oxygen Concentration - - Weight 109.8 kg (242 lb) 07/15/2017 2:39 PM EDT Height 172.7 cm (5' 8 ) 07/15/2017 2:39 PM EDT Body Mass Index 36.8 07/15/2017 2:39 PM EDT documented in this encounter Progress Notes * Mayo Muse DPM - 07/15/2017 2:20 PM EDT [facility] Podiatric Surgery Outpatient Progress Note Mayo Muse DPM Name: Faby Palm Primary Care Physician: Sharee Segovia ARNP Chief Complaint: Chief Complaint Patient presents with ??? Nail Care ??? Diabetes History of Presenting Illness: Faby Palm is a 67 y.o. female who is here for painful toenails 1-5 of both feet. Relates thatpain is with shoe pressures. No new pedal complains. Patient with history of CVA. Medications: Outpatient Prescriptions Marked as Taking for the 07/15/17 encounter (Office Visit) with Mayo Muse DPM Medication Sig Dispense Refill ??? acetaminophen 325 mg Oral Tab Take 650 mg by mouth every 4 hours as needed for Pain. ??? ARIPiprazole (ABILIFY) 30 mg Oral Tablet Take 1 Tab by mouth daily. 30 Tab 0 ??? aspirin 81 mg Oral Tablet, Chewable Take 1 Tab by mouth daily. 60 Tab 0 ??? atorvastatin (LIPITOR) 20 mg Oral Tablet TAKE ONE TABLET BY MOUTH NIGHTLY 30 Tab 1 ??? ferrous sulfate 325 mg (65 mg iron) Oral Tablet Take 1 Tab by mouth 2 times daily (with meals).60 Tab 5 ??? fUROsemide (LASIX) 20 mg Oral Tablet Take 1 Tab by mouth daily. 30 Tab 0 ??? glipiZIDE (GLUCOTROL) 10 mg Oral Tablet Take 10 mg by mouth 2 times daily (with meals). ??? hydrOXYzine (VISTARIL) 25 mg Oral Capsule Take 1 Cap by mouth every 6 hours as needed. 60 Cap 0 ??? insulin glargine (LANTUS) 100 unit/mL SubQ Solution Subcutaneous (Inject under the skin) 28 Units every evening. 10 mL 12 ??? isosorbide mononitrate (IMDUR) 60 mg Oral Tablet Sustained Release 24 hr TAKE ONE TABLET BY MOUTH ONCE DAILY 30 Tab 1 ??? lamoTRIgine (LAMICTAL) 25 mg Oral Tablet Take 1 Tab by mouth 2 times daily. 60 Tab 0 ??? lisinopril (PRINIVIL;ZESTRIL) 5 mg Oral Tablet Take 5 mg by mouth daily. ??? metoprolol (LOPRESSOR) 50 mg Oral Tablet TAKE 1 TABLET BY MOUTH 2 TIMES DAILY 60 Tab 2 ??? nitroGLYCERIN (NITROSTAT) 0.4 mg SL Tablet, Sublingual Place 1 Tab under the tongue every 5 minutes as needed for Chest pain. 20 Tab 2 ??? pantoprazole (PROTONIX) 40 mg Oral Tablet, Delayed Release (E.C.) TAKE ONE TABLET BY MOUTH ONCEDAILY 30 Tab 6 ??? RANEXA 1,000 mg Oral Tablet Sustained Release 12 hr TAKE ONE TABLET BY MOUTH EVERY 12 HOURS 60 Tab 0 ??? Saccharomyces boulardii (FLORASTOR) 250 mg Oral Capsule Take 1 Cap by mouth 2 times daily. 60 Cap 0 ??? sertraline (ZOLOFT) 100 mg Oral Tablet Take 200 mg by mouth daily. Reported on 08/12/2016 ??? traZODone (DESYREL) 300 mg Oral Tablet Take 1 Tab by mouth nightly. 30 Tab 0 Allergies Allergen Reactions ??? Compazine [Prochlorperazine Edisylate] ??? [place] ??? Pentazocine Hcl ??? Prochlorperazine Maleate ??? Talwin [Pentazocine Lactate] Past Medical History: Diagnosis Date ??? Atrial flutter (HCC) EPS, AFL Ablation on 12/31/[address] Tee ??? CHF (congestive heart failure) (HCC) ??? COPD (chronic obstructive pulmonary disease) (HCC) ??? DDD (degenerative disc disease) ??? Diabetes mellitus (HCC) ??? Hypertension ??? Intellectual disability 05/03/2017 ??? SD (myocardial infarction) (HCC) ??? RLS (restless legs [...] BRUSHING; Surgeon: Be Brown MD; Location: [facility] END[facility]; Service: Endoscopy Family History Problem Relation [...] ??? None Social History Narrative Lives at [facility] Has two children and two grandchildren. Is Review of Systems: Review of Systems Constitutional: Positive for fatigue. Negative for activity change, chills and fever. Eyes: Negative for visual disturbance. Respiratory: Positive for shortness of breath. Negative for apnea. Cardiovascular: Positive for leg swelling. Negative for chest pain. Gastrointestinal: Negative for nausea and vomiting. Musculoskeletal: Negative for back pain, gait problem and joint swelling. Skin: Negative for rash and wound. Neurological: Negative for dizziness, seizures, weakness, light-headedness, numbness and headaches. Hematological: Does not bruise/bleed easily. Psychiatric/Behavioral: Negative for agitation, behavioral problems and confusion. The patient is not nervous/anxious. All other systems reviewed and are negative. Physical Examination: Vital Signs: Ht 5' 8 (1.727 m) Wt 242 lb (109.8 kg) BMI 36.80 kg/m?? General: Faby appears in no acute [...] Inspection Normal Normal L Inspection Normal Normal Skin is thin, cool to touch. +Shiny. +Paresthesia, +Burning. No open wounds. +Preulcerative callus noted to left great toe. Assessment: Faby was seen today for nail care and diabetes. Diagnoses and all orders for this visit: Pre-ulcerative calluses - TN TRIM HYPERKERATOTIC SKIN LESION, ONE 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 (HCC) - TN DEBRIDEMENT OF NAILS, 6 OR MORE - TN TRIM HYPERKERATOTIC SKIN LESION, ONE History of CVA (cerebrovascular accident) - TN TRIM HYPERKERATOTIC SKIN LESION, ONE Onychomycosis - TN DEBRIDEMENT OF NAILS, 6 OR MORE Pain in toes of both feet - TN DEBRIDEMENT OF NAILS, 6 OR MORE - TN TRIM HYPERKERATOTIC SKIN LESION, ONE Treatment: - [...] up in 3 months. Mayo Muse DPM The following was discussed with Ms. Palm during today's visit: ?? The need for and benefit of colon cancer screening and benefit of early detection and management, recommended contacting PCP to get an order or referral as appropriate. ?? The importance of good blood pressure control to prevent cardiovascular and end organ complications. Recommended follow up with PCP to address abnormal elevation noted today. documented in this encounter Miscellaneous Notes * Patient Instructions - Dana Lynn TREE TRIMMING LINE TECHNICIAN - 07/15/2017 2:40 PM EDT Patient Education Hand Washing Germs [...] your risk of huyen and sharing germs. WHEN SHOULD I WASH MY HANDS? You should wash your hands whenever you think they are dirty. You should also wash your hands: ?? Before: Visiting a baby or anyone with a weakened or lowered defense (immune) system. Putting in and taking out any contact lenses. ?? After: Working or playing outside. Touching an animal or its toys or leash. Handling livestock. Using the bathroom. Using household director regulatory affairs or toxic chemicals. Touching or taking out the garbage. Touching anything dirty around your home. Handling soiled clothes or rags. Taking care of a sick child. This includes touching used tissues, toys, and clothes. Sneezing, coughing, or blowing your nose. Using public transportation. Shaking hands. Using a phone, including your mobile phone. Touching money. ?? Before and after: Preparing food. Preparing a bottle for a baby. Feeding a baby or young child. Eating. Visiting or taking care of someone who is sick. Changing a diaper. Changing a bandage (dressing) or taking care of an injury or wound. Giving or taking medicine. WHAT IS THE CORRECT WAY TO WASH MY HANDS? ?? Wet your hands with clean, running [...] in a public restroom, use your towel: To turn off the water faucet. To open the bathroom door. HOW CAN I CLEAN MY HANDS IF I DO NOT HAVE SOAP AND WATER? If soap and clean water are not available, use an alcohol-based wipe, spray, or hand gel. Use a hand-sanitizing agent that contains at least 60% alcohol. If you are preparing food, hand sanitizers are not recommended as a substitute for hand washing. To use a hand medicare insurance specialist, follow the directions provided on the product, [...] care provider. Document Released: 10/13/2005 Document Revised: 03/15/2015 Document Reviewed: 07/20/2014 [employer] Interactive Patient Education ??2016 wireLawyer. Mayo Hobbs DPM or the staff today noticed that you have findings that are out of the recommendations that [facility] uses to optimize our patients health and outcomes. Today this was specific to: ?? Blood Pressure Control - It is [...] your health and overall quality of life. ?? Colon Cancer Screening - It was noticed today that we don't have a record of your colon cancer screening exam. Colon Cancer is the 3rd leading cause of cancer for both men and women with thelifetime risk of developing this disease over your lifetime approaching 5% with 90% of all colon cancers being diagnosed after age 50. Most cases of colon cancer begin as small, noncancerous (benign)clumps of cells called adenomatous polyps. Over time some of these polyps become colon cancers. Polyps may be small and produce few, if any, symptoms. For this reason, doctors recommend regular screening tests to help prevent colon cancer by identifying and removing polyps before they become colon cancer. Waiting until you have symptoms seriously decreases your chance at optimal outcomes and may allow the cancer to grow to a large size or spread to other organs before it is detected. We understand that many patients have anxiety about colon cancer screening or have heard stories about colonoscopy. Most of those are exaggerated. Our regional specialists do thousands of these exams yearly andare very good. Colonoscopy is considered the gold standard for the best screening test for colon cancer available; however, for patients who still have concerns about this particular test there are other testing options that may be available to you based on your individual health history and may req uire no more than a stool sample. Because the complexity of colon cancer screening options can be very individualized Mayo Muse DPM strongly encourages you to follow up with your primary care provider to discuss screening for this deadly and preventable disease and decide which option is best for you. ?? Breast Cancer Screening - It was noticed today that we either don't have a record of a recent mammogram or you have been found to be overdue for this very important screening exam. Because one in 8 women will develop breast cancer in their lifetime and it is the second leading cause of cancer in women behind lung cancer, it is very serious and important to identify it early because survival rates are directly related to early detection and treatment. ?? The 5-year relative survival rate for women with stage 0 or stage I breast cancer is close to 100%. ?? For women with stage II breast cancer, the 5-year relative survival rate is about 93%. ?? The 5-year relative survival rate for stage III breast cancers is about 72%. But often, women with these breast cancers can be successfully treated. ?? Breast cancers that have spread to other parts of the body are more difficult to treat and tend to have a poorer outlook. Metastatic, or stage IV breast cancers, have a 5-year relative survival rate of about 22%. Mayo Muse DPM, like the rest of your health care family, understands the importance of early detection and encourages you to complete your mammogram as soon as possible if it was ordered for you today or contact your primary care provider as soon as possible to have an order placed. We continue to strive as your health care community towards our goal of being the healthiest area in the country. Thank you for allowing us to help you get there. Sincerely. Mayo Muse DPM and Staff documented in this encounter Plan of Treatment Scheduled Orders Name Type Priority Associated Diagnoses Orde r Schedule TN DEBRIDEMENT OF NAILS, 6 OR MORE TN Charge Routine 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 (HCC) Onychomycosis Pain in toes of both feet Ordered: 07/15/2017 TN TRIM HYPERKERATOTIC SKIN LESION, ONE TN Charge Routine 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 (HCC) History of CVA (cerebrovascular accident) Pre-ulcerative calluses Ordered: 07/15/2017 documented as of this encounter Goals Goal Patient Goal Type Associated Problems Recent Progress Patient-Stated? Author Blood Pressure < 140/90 Blood Pressure 124/52(2018 4:00 PM EDT) Silva Mead S, RMA BMI (Calculated) < 30 General 35.6(10/06/19 19 4:56 PM EDT) No Silva Mathew RMA Maintain a healthy diet, exercise regularly and maintain an ideal body weight General No Silva Mathew RMA HEMOGLOBIN A1C < 7.0 Result Component 6.6( 9 9:49 AM EST) No Silva Mathew ROSIA documented as of this encounter Visit Diagnoses Diagnosis Pre-ulcerative calluses- Primary Corns and callosities 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 History of CVA (cerebrovascular accident) Transient ischemic attack (TIA), and cerebral infarction without residual deficits Onychomycosis Dermatophytosis of nail Pain in toes of both feet documented in this encounter Additional Health Concerns Assessment Noted Time A fall risk assessment has been complete d for the patient 04/21/2017 10:52 AM EST documented as of this encounter Care Teams Systems Eng Relationship Specialty Start Date End Date Sharee Segovia APRN [address] [place], [place] [id number] PCP - General Nurse Practitioner-Family 09/21/16 documented as of this encounter
--- OUTSIDE RECORDS SUMMARY | 2024-02-16 14:55 | XMS_ITS | Encounter Summary ---
Author Organization [place] [address] Care Team Providers Care Curtain Mender Name Role Phone Sharee Segovia APRN Primary Care Provider [phone] Encounter Details Date Type Department Care Team (Late st Contact Info) Description 06/22/2017 Orders Only [facility] [address] [place] [address] Sharee Segovia APRN [address] [place], [place] [phone] Encounter for screening mammogram for breast cancer (Primary Dx) Social History Tobacco Use Types [...] Mathew RMA BMI (Calculated) < 30 General 35.6(07/31/20 19 4:56 PM EDT) No Silav Mathew RMA Maintain a healthy diet, exercise regularly and maintain an ideal body weight General No Silva Mathew RMA HEMOGLOBIN A1C < 7.0 Result Component 6.6( 9 9:49 AM EST) No Silva Mathew RMA documented as of this encounter Visit Diagnoses Diagnosis Encounter for screening mammogram for breast cancer- Primary documented in this encounter Additional Health Concerns Assessment Noted Time A fall risk assessment has been complete d for the patient 04/21/2017 10:52 AM EST documented as of this encounter Care Teams Curtain Mender Relationship Specialty Start Date End Date Sharee Segovia APRN [address] [place], [place] [phone] PCP - General Nurse Practitioner-Family 09/21/16 documented as of this encounter
--- OUTSIDE RECORDS SUMMARY | 2024-02-16 14:55 | XMS_ITS | Encounter Summary ---
Author [place] [address] Care Team Providers Care Perennial House Manager Name Role Phone Sharee Segovia APRN Primary Care Provider [phone] Reason for Visit * Reason Comments Chest Pain Pt to ER via squad w ith complaints of SVT per EMS. Pt at [...] [R07.9] Procedures CORONARY ANGIOGRAM / CARDIAC CATHETERIZATION [[id number]] EDG 6D [facility] [place] [address] Phone: tel: fax: Referral ID Status Reason Start Date Expiration Date Visits Re quested Visits Authorized [id number] 07/25/2017 07/25/2018 1 1 Encounter Details Date Type Department Care Team (Late st Contact Info) Description 07/25/2017 1:00 PM EDT - 07/25/2017 2:00 PM EDT Surgery EDG CLIENT LIAISON [facility] [address] [place] [address] Mike Winchester MD [address] [place] [address] (work) CORONARY ANGIOGRAM / CARDIAC CATHETERIZATION Surgery Details Date/Time Status Location OR Service Patient Class Case Class Case Type Trauma Case? 07/25/2017 1:00 PM Posted EDG CARDIAC CLIENT LIAISON IMAGING EDG CCL 2 Cardiac Inpatient N/A Panel 1 Procedure LRB Anes Op Region Wound Class Comments CORONARY ANGIOGRAM / CARDIAC CATHETERIZATION N/A Moderate Sedation CORONARY ANGIOGRAM / CARDIAC CATHETERIZATION [[id number]] LEFT VENTRICULOGRAM N/A Moderate Sedation INTRAVASCULAR DOPPLER VELOCITY N/A Moderate Sedation Surgeon Surgeon Role Service Panel Mike Winchester MD Primary Cardiac 1 documented in this encounter Social History Tobacco Use Types Packs/Day Years Used Date Smoking Tobacco: Never Smokeless Tobacco: Never Alcohol Use Standard Drinks/Week Comments No 0 (1 standard drink = 0.6 oz pur e alcohol) wednesday Sexually Active Control Partners Comments Never Comments [...] Sign Reading Time Taken Comments Blood Pressure 97/50 07/25/2017 12:42 PM EDT Pulse 48 07/25/2017 12:42 PM EDT Temperature 36.9 ??C (98.5 ??F) 07/25/2017 1 1:10 AM EDT Respiratory Rate 15 07/25/2017 12:4 2 PM EDT Oxygen Saturation 92% 07/25/2017 12: 42 PM EDT Inhaled Oxygen Concentration - - Weight 105.4 kg (232 lb 6.4 oz) 07/25/2017 6:33 AM EDT Height 172.7 cm (5' 8 ) 07/24/2017 2:34 PM EDT Body Mass Index 34.99 07/24/2017 2:34 PM EDT documented in this encounter Discharge Summaries * Venkat Sanchez MD - 07/27/2017 3:57 PM EDT [facility] Discharge Summary Patient Name: Faby [...] heart failure) (HCC) 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 Dispo: She is being discharged to [facility] today for continuation of physical therapy [...] Your Medications These medications were sent to [id number] - [place], [place] [address] [address] [facility] -[phone] [address] [facility] [address] ?? clopidogrel 75 mg Tab ?? metoprolol 25 mg Tab Condition at Discharge: good Disposition: Rehab - [facility] Follow-up: Sharee Segovia ARNP [address] [place] [address] In 3 days Bello Devries MD [address] [place] [address] [place] [address] Schedule an appointment as soon as possible for a visit in 2 weeks Time spent on this discharge summary is over 30 minutes today. Venkat Sanchez MD 07/27/2017 documented in this encounter Discharge Instructions * Attachments The following attachments cannot be sent through Care Everywhere. * HEART ATTACK (GUINEAN) documented in this encounter Medications at Time [...] Disposition Code Departure Means Destination Rehab Facility [facility] documented in this encounter Progress Notes * Annie Hampton, AIRCRAFT TOOL MAKER - 07/27/2017 4:56 PM EDT Heart & [...] have been reviewed Assessment & Plan: NSTEMI [facility] 07-24-17 ?? Ost RCA lesion 60% [...] at 08/10/2017 8:55 AM EDT * Sarah Whatley BSW - 07/27/2017 4:52 PM EDT 07/27/17 1641 Final Note Actual Discharge Plan 07/27 Final Discharge Note: [facility] can accept pt. and have gotten precert. Pt. has been discharged and [facility] will transport pt. to [facility] today. They will call nurses station with time. Called [facility] and left a VM to notify them. Notified pt's. , Manju and Kassie @ [facility] will sign off. Discharge to Rehab Transportation at discharge [facility] cab PASAR Completed Not Applicable Patient/Family Aware of Plan Yes MD Aware of Plan Yes RN Notified of Plan Yes Patient's goals for recovery [place] in mobility * Manju Alvarez, ROLF - 07/27/2017 4:41 PM EDT Pt to be discharged to [facility]. S. Report given to Carmen. AVS placed in [...] failure) (HCC) ??? 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 [...] Discharge Planning Evaluation Actual Discharge Plan 07/27 Update: Received pt. from [facility]. Pt. from [facility]. Per P.T. referral, pt. needs rehab/SNF. Met with pt. to discuss options. Pt. would like to go to [facility]. Referra sent and received a call back from Kassie @ [facility]. They can accept pt. pending precert. Precert [...] Intellectual disability ??? Schizoaffective disorder, depressive type ([facility]) ??? 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 (HCC) ??? 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 3 chronic kidney disease, with long-term current use of insulin ([facility]) ??? S/P ablation of atrial flutter ??? Chronic diastolic CHF (congestive heart failure) ([facility]) ??? 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 History of CVA (cerebrovascular accident) Subjective: [...] Sanchez MD 07/27/2017 5:22 AM * Dane Sanchez, RN - 07/26/2017 7:39 PM EDT Resumed [...] and notify MD as needed. * Manju Alvarez, ROLF - 07/26/2017 6:45 PM EDT Pt arrived [...] RLS, atrial flutter, schizoaffective disorder depressive type, WY, intellectual disability, ablation of dysrhythmic focus, ankle sx, left TKR, lung sx- partial removal, orthopedic sx Pain Screening PT/OT Patient Currently in Pain Denies Cognition Overall Cognitive Status WFL Arousal/Alertness Appropriate responses to stimuli Attention Span Appears intact Orientation Level Oriented X3;Pleasant and Cooperative Following Commands Follows one step commands without difficulty Home Living/Prior Function Type of Home Assisted Living ([facility]) Home Equipment 2 wheel walker Level [...] Observation Presentation Patient resting in bed Observation Bead Worker Sewing;Bed Alarm Vitals SPO2 94% on RA UE [...] skilled PT;Rehab Time In / Time Out [id number] IP PT Evaluation Minutes 15 IP PT Treatment Minutes 14 * Sandra Branch RD,LD - 07/26/2017 2:28 PM EDT Nutrition consult received for post AMI diet education. Pt visited, sleeping, did not wake. Heart Healthy handout left in pt's room. Will continue to follow for diet education. * Vincent Snow - 07/26/2017 2:28 PM EDT This manufacturing assistant attempted to complete initial visit with this patient during normal rounds in order to introduce pastoral care services, assess spiritual needs, and offer spiritual support. The patientwas not available at time of attempted visit due to being asleep and no visitors present. This manufacturing assistant left card and pastoral care brochure in order to let the patient know of attempted visit and availability of pastoral care services. Pastoral Care will continue to be available to this patient and family during hospital stay. Rev. Chaplain Efren ([id number]) 07/26/17 1400 Pastoral Care Encounter Visited With Asleep Date of visit 07/26/17 Visit Type Initial Protestant Needs Pastoral care brochure Pastoral Care Plan/Intervention [...] RLS, atrial flutter, schizoaffective disorder depressive type, WY, intellectual disability, ablation of dysrhythmic focus, ankle sx, left TKR, lung sx- partial removal, orthopedic sx * Ben Anderson APRN - 07/26/2017 11:23 AM EDT [facility] Patient: Faby Palm Primary Insulation Inspector: Dr Devries She has been in the [...] SKIN: warm and dry. No new rashes Bead Worker Sewing: Vitals: Vitals: 07/26/17 0425 07/26/17 0426 07/26/17 [...] Intellectual disability ??? Schizoaffective disorder, depressive type ([facility]) ??? 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 ([facility]) ??? 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 3 chronic kidney disease, with long-term current use of insulin ([facility]) ??? S/P ablation of atrial flutter ??? Chronic diastolic CHF (congestive heart failure) ([facility]) ??? 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 History of CVA (cerebrovascular accident) ASSESSMENT AND PLAN: This is a 67 y.o. female who was admitted on 07/24/2017 and has the following issues: 1. NSTEMI [facility] 07-24-17 ?? Ost RCA lesion 60% [...] other changes from cardiology standpoint. * Mayo Omalley, - 07/26/2017 11:19 AM EDT Images from the original note were not included. 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 Noted Ost RCA lesion 60% stenosed. Mid RCA lesion 40% stenosed. Mid LAD lesion 50% stenosed. Significant but not clearly flow limiting dz . Normal LVEDP -asa, bb, statin ?Schizoaffective disorder, depressive type (HCC) ?Intellectual disability -obs -home regimen ?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 (HCC) ?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 3 chronic kidney disease, with long-term current use of insulin (HCC) -ssi/long acting -home regimen ?S/P ablation of atrial flutter ?Chronic diastolic CHF (congestive heart failure) (HCC) -is [...] ??? Chronic diastolic CHF (congestive heart failure) ([facility]) ??? 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 Placed on taffy candy maker and oriented to room. Rt femoral artery [...] sheath. Will continue to monitor. * Gerard Reddy, ROLF - 07/25/2017 4:29 PM EDT Patient to be sent to [facility] for closer monitoring after her coronary Angiogram. Report called to floor and belongings collected and delivered to patient new room.. * Shira Borges [facility] - 07/25/2017 11:49 AM EDT S: Faby Palm is a(n) 67 y.o. female with diagnosis of CP / AMI / ACS. Allergies: Compazine [prochlorperazine edisylate]; Nipinnawasee; Pentazocine hcl; Prochlorperazine maleate; and Talwin [pentazocinelactate] [...] you! Shira Borges RPH * Mayo Omalley, - 07/25/2017 10:14 AM EDT Images from the original note were not included. 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 Schizoaffective disorder, [...] neccessary ?? Discharge anticipated for 1-2days pending [facility] Active Hospital Problems Diagnosis ??? *Acute chest [...] failure) (HCC) ??? 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 [...] Omalley DO 07/25/2017 10:14 AM * Gerard Reddy, ROLF - 07/25/2017 8:43 AM EDT Patient resting [...] and follow in am. Thank you, Faby Schuler, BayronD * Gerard Reddy RN - 07/24/2017 3:44 PM EDT Patient arrived to floor from ED with diagnosis of NSTEMI. Patient Lives at [facility] and was brought to ER after [...] and will continue to monitor. * Mira Hudson RPH - 07/24/2017 1:28 PM EDT [facility] S: Fbay Palm is a(n) 67 y.o. female with diagnosis of CP / AMI / ACS. Allergies: Compazine [prochlorperazine edisylate]; Nipinnawasee; Pentazocine hcl; Prochlorperazine maleate; and Talwin [pentazocinelactate]. [...] 0.3 - 0.7 unit/mL). Thank you! Mira Hduson, PharmD, BCPS, BCCCP documented in this encounter H&P Notes * Mike Winchester MD - 07/25/2017 2:27 PM EDT PHYSICIAN IMMEDIATE PRE-PROCEDURE UPDATE H&P and SEDATION ASSESSMENT Risks, benefits, potential complications and alternatives have been discussed with patient and/or patient's legal authorized major account representative. HISTORY AND PHYSICAL H&P is less [...] consumption: 07/25/17 Time of last liquid consumption: 08 Date of last solid food consumption: 07/24/17 [...] Allergen Reactions ??? Compazine [Prochlorperazine Edisylate] ??? Nipinnawasee ??? Pentazocine Hcl ??? Prochlorperazine Maleate ??? Talwin [Pentazocine Lactate] Source Note - Mike Winchester MD - 07/24/2017 2:32 PM EDT CARDIOLOGY CONSULT Faby Palm Today's Date: 07/24/2017 Date of Admission: 07/24/2017 Primary Care Provider: Sharee Segovia ARNP Insulation Inspector: Bello Devries Chief Complaint: Chest pain Referring [...] Allergen Reactions ??? Compazine [Prochlorperazine Edisylate] ??? Nipinnawasee ??? Pentazocine Hcl ??? Prochlorperazine Maleate ??? [...] mouth 3 times daily. Yes Provider, Historical equie-D-ghquqydttftkt (ANTI-GAS ORAL) Take by mouth 3 times [...] AND BRUSHING; Surgeon: Be Brown MD; Location: [facility]; Service: Endoscopy Family History: Family History [...] input to follow-up from Dr. Ranulfo Oropeza, AIRCRAFT TOOL MAKER 07/24/2017 Addendum: I personally interviewed and examined [...] route EKG: NSR. Possible age undetermined anterolateral WY with low voltage limb leads. Similar to [...] dz in LAD and RCA on cath 8/17 but felt not likely flow limiting Atrial [...] Omalley DO - 07/24/2017 1:10 PM EDT [facility] History and Physical Name: Faby Palm ADDRESS: [address] [place] [address] : 1950 AGE: 67 y.o. Admitting Physician: [...] for Pain. 07/23/2017 at Unknown time ??? jlyws-F-wbvkxuxpstupv (ANTI-GAS ORAL) Take by mouth 3 times [...] Allergen Reactions ??? Compazine [Prochlorperazine Edisylate] ??? Nipinnawasee ??? Pentazocine Hcl ??? Prochlorperazine Maleate ??? [...] ??? None Social History Narrative Lives at [facility] Has two children and two [...] by physician to follow. Stationary ECG Study [facility] Interpretive Statements SINUS RHYTHM LOW QRS VOLTAGE INPRECORDIAL LEADS ANTERIOR MYOCARDIAL INFARCTION, PROBABLY OLD INFERIOR MYOCARDIAL INFARCTION, PROBABLY OLD Ek Ekg 12 Lead Result Date: 07/24/2017 NOTICE: Preliminary tracing available for review; Final Interpretation by physician to follow. Stationary ECG Study [facility] Interpretive Statements SINUS TACHYCARDIA WITH OCCASIONAL ECTOPIC PREMATURE COMPLEXES ANTERIOR MYOCARDIAL INFARCTION, PROBABLY OLD INFERIOR MYOCARDIAL INFARCTION, OF INDETERMINATE AGE INTERPRETATION BASED ON A DEFAULT AGE OF 40 YEARS Results for orders placed during the hospital encounter of 07/24/17 EK EKG 12 LEAD Narrative NOTICE: Preliminary tracing available for review; Final Interpretation by physician to follow. 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 (HCC) 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 3 chronic kidney disease, with long-term current use of insulin ([facility]) -ssi/long acting -home regimen S/P ablation of atrial flutter Chronic diastolic CHF (congestive heart failure) ([facility]) -is and os -daily weight -diuresis prn -tele History of CVA (cerebrovascular accident) -OBS -PT to see if neccessary I have reviewed and verified the Advance Care Plans and Healthcare Surrogate with pt Tono Omalley DO [facility] Hospitalist 07/24/2017 3:14 PM documented in this encounter Consult Notes * Mike Winchester MD - 07/24/2017 2:32 PM EDTAssociated Order(s): IP CONSULT TO CARDIOLOGY CARDIOLOGY CONSULT Faby Palm Today's Date: 07/24/2017 Date of Admission: 07/24/2017 Primary Care Provider: Sharee Segovia ARNP Insulation Inspector: Bello Devries Chief Complaint: Chest pain Referring [...] Allergen Reactions ??? Compazine [Prochlorperazine Edisylate] ??? Nipinnawasee ??? Pentazocine Hcl ??? Prochlorperazine Maleate ??? [...] daily. Hold for SBP <90 07/20/17 Yes Sriedvi Calle APRN ferrous sulfate 325 mg (65 [...] mouth 3 times daily. Yes Provider, Historical hhudt-U-malhmknxmirql (ANTI-GAS ORAL) Take by mouth 3 times [...] MD; Location: [facility]; Service: Endoscopy Family History: Family History [...] Position: Pulse: 102 80 79 95 Resp: 14 Temp: TempSrc: SpO2: 90% Weight: Height: [...] Further input to follow-up from Dr. Ranulfo Oropeza APRN 07/24/2017 Addendum: I personally interviewed and examined [...] route EKG: NSR. Possible age undetermined anterolateral W[place] with low voltage limb leads. Similar to [...] Allergen Reactions ??? Compazine [Prochlorperazine Edisylate] ??? Nipinnawasee ??? Pentazocine Hcl ??? Prochlorperazine Maleate ??? [...] TABLET BY MOUTH ONCE DAILY 03/24/17 Yes Jaonna Pierce MD lamoTRIgine (LAMICTAL) 25 mg Oral [...] mouth 3 times daily. Yes Provider, Historical torhh-L-cgajprtspamcb (ANTI-GAS ORAL) Take by mouth 3 times [...] Percent 87.9 % Lymph Percent 6.2 % Hayes Percent 5.4 % Eos Percent 0.1 % Baso Percent 0.4 % Neut # 9.3 (H) 1.8 - 7.7 x10(3)/mcL Lymph # 0.7 0.6 - 4.8 x10(3)/mcL Hayes # 0.6 0.0 - 1.3 x10(3)/mcL Eos# [...] this immunoassay test. IP CONSULT TO CARDIOLOGY Narrative Mike Winchester MD 07/24/2017 4:22 PM CARDIOLOGY CONSULT Faby Palm Today's Date: 07/24/2017 Date of Admission: 07/24/2017 Primary Care Provider: Sharee Segovia ARNP Insulation Inspector: Bello Devries Chief Complaint: Chest pain Referring [...] Allergen Reactions ??? Compazine [Prochlorperazine Edisylate] ??? Nipinnawasee ??? Pentazocine Hcl ??? Prochlorperazine Maleate ??? [...] mouth 3 times daily. Yes Provider, Historical hpuro-E-mookegofgtsvq (ANTI-GAS ORAL) Take by mouth 3 times [...] MD; Location: [facility]; Service: Endoscopy Family History: Family History [...] Position: Pulse: 102 80 79 95 Resp: 14 Temp: TempSrc: SpO2: 90% Weight: Height: [...] input to follow-up from Dr. Ranulfo Oropeza, AIRCRAFT TOOL MAKER 07/24/2017 Addendum: I personally interviewed and examined [...] route EKG: NSR. Possible age undetermined anterolateral WY with low voltage limb leads. Similar to [...] follow. Impression Stationary ECG Study [facility] [place] Interpretive Statements SINUS TACHYCARDIA WITH OCCASIONAL ECTOPIC PREMATURE COMPLEXES ANTERIOR MYOCARDIAL INFARCTION, PROBABLY OLD INFERIOR MYOCARDIAL INFARCTION, OF INDETERMINATE AGE INTERPRETATION BASED ON A DEFAULT AGE OF 40 YEARS EK EKG 12 LEAD Narrative NOTICE: Preliminary tracing available for review; Final Interpretation by physician to follow. Impression Stationary ECG Study [facility] Interpretive Statements SINUS RHYTHM LOW QRS VOLTAGE [...] case with the hospitalist for admission to [facility]. ED Clinical Impression: 1. NSTEMI (non-ST elevated myocardial infarction) (HCC) Critical Care time Critical care was administered to the patient for greater than 30 minutes. This time excludes procedure time. Condition at Discharge/Transfer from Department: Stable Omaira Olivares Scribe, am scribing for and in the presence of Ela Herbert MD. This chart was completed using voice recognition technology and may contain unintended errors Omaira Mathew Scribe 07/24/17 8670 Ela Olivares MD, personally performed the services described in this documentation, as scribed byParas in my presence and it is accurate [...] ADMIT TO TELE FROM ED IP (Order [id number]) CP, NSTEMI, HX CAD, SCHIZOAFFECTIVE D/O, DM, CHF, AFLUTTER S/P ABLATION, CVA TMAX 99.8, HR 48, RR 41, BP 88/42, 86% RA, 95% 2LNC, NOW ON RA +TROP, GLUC 323, CR 1.66, HGB 11.0 NPO IVF@150, HEPARIN IV CONTINUOUS PRIMARY 07/25- Discharge anticipated for 1-2days pending [facility] CARDIOLOGY 07/24- Continue beta laquita, asa and [...] * Utilization Review Notes - Alicia Perez, ROLF - 07/25/2017 1:17 PM EDT ADMIT TO TELE FROM ED IP (Order [id number]) CP, NSTEMI, HX CAD, SCHIZOAFFECTIVE D/O, DM, CHF, AFLUTTER S/P ABLATION, CVA TMAX 99.8, HR 48, RR 41, BP 88/42, 86% RA, 95% 2LNC, NOW ON RA +TROP, GLUC 323, CR 1.66, HGB 11.0 NPO IVF@150, HEPARIN IV CONTINUOUS PRIMARY 07/25- Discharge anticipated for 1-2days pending [facility] CARDIOLOGY 07/24- Continue beta laquita, asa and [...] 19 4:56 PM EDT) No Quincy Silva Lasha, RMRonaldo Maintain a healthy diet, exercise regularly and [...] 3:38 PM EDT Chest pain, unspecified type CLIENT LIAISON HEMODYNAMIC WAVEFORMS Routine 07/25/2017 2:48 PM EDT [...] 07/24/2017 Primary Care Provider: Sharee Segovia ARNP Insulation Inspector: Bello Devries Chief Complaint: Chest pain Referring [...] ? ? Compazine [Prochlorperazine Edisylate] ? ? Nipinnawasee ? ? Pentazocine Hcl ? ? Prochlorperazine [...] 150 mg by mouth nightly. 05/12/17 Eric Santillan MD valACYclovir (VALTREX) 1 gram Oral Tablet Take by mouth 3 times daily.Yes Provider, Historical rdjkd-W-sduyksczozbdc (ANTI-GAS ORAL) Take by mouth 3 times [...] ? ? Intellectual disability 05/03/2017 ? ? WY (myocardial infarction) (HCC) ? ? RLS (restless legs syndrome) ? ? Schizoaffective disorder, depressive type ([facility]) 02/19/2017 ? ? Stroke ([facility]) 2010 left side affected ? ? Suicide attempt ([facility]) ? ? Urinary incontinence ? ? Yeast [...] AND BRUSHING; Surgeon: Be Brown MD; Location: [facility]; Service: Endoscopy Family History: Family History [...] Position: Pulse: 102 80 79 95 Resp: 14 Temp: TempSrc: SpO2: 90% Weight: Height: [...] wishes to proceed. Plan fortomorrow with Dr. iWnchester. - Monitor for arrhythmia / tachycardia on telemetry - Continue ASA, Metoprolol, Norvasc, Lasix, Imdur, Lisinopril, Clonidine,Lipitor Further input to follow-up from Dr. Ranulfo Oropeza, AIRCRAFT TOOL MAKER 07/24/2017 Addendum: I personally interviewed and examined the above patient. I have reviewedthe PMH, Social Hx, and ROS. I agree with the outlined assessment andplan as noted. Pt presents with chest pain. Somewhat inconsistent with description.Recent ER visit for chest pain. Now comfortable but troponin found to bemildly elevated. EMS reports narrow complex tachycardia en route EKG: NSR. Possible age undetermined anterolateral WY with low voltage limbleads. Similar to prior [...] GLUCOSE METER POC (07/27/2017 12:45 PM EDT) Glucose Meter POC 185(H) 70 - 100 mg/dL 07/27/2017 12:47 PM EDT [facility] Sample Type Capillary 07/27/2017 12:47 PM EDT [facility] Patient Status Non-Critical Patient 07/27/2017 12:47 PM EDT [facility] Blood BLOOD SPECIMEN / Unknown 07/27/2017 12:45 PM EDT 07/27/2017 12:47 PM EDT us Mayo Omalley DO POINT OF CARE TEST ORDER DEBBIE Final Result [facility] [address] [place] [address] * GLUCOSE METER POC (07/27/2017 8:03 AM EDT) Glucose Meter POC 99 70 - 100 mg/dL 07/27/2017 8:05 AM EDT [facility] Sample Type Capillary 07/27/2017 8:05 AM EDT [facility] Patient Status Non-Critical Patient 07/27/2017 8:05 AM EDT [facility] Blood BLOOD SPECIMEN / Unknown 07/27/2017 8:03 AM EDT 07/27/2017 8:05 AM EDT Mayo Omalley DO POINT OF CARE TEST ORDER DEBBIE Final Result Performing Organization Address City/[facility]/ZIP Co de Phone Number [facility] [address] [place] [address] * ECG AND WAVEFORMS - TELEMETRY (07/27/2017 7:22 AM EDT) Pathologist [facility] ECG INTERPRET Sinus Bradycardia [facility] FOOD ADVISER APPROVED Yes [facility] 07/27/2017 7:22 AM EDT Narrative [facility] - 07/27/2017 9:04 AM EDT ??See Clinical Report link for waveform capture us Unknown Provider POINT OF CARE CARDIOLOGY Final Result Performing Organization Address [facility] Co de Phone Number [facility] [address] [place] [address] * (ABNORMAL) BASIC METABOLIC PANEL (07/27/2017 6:40 AM EDT) [facility] Sodium 144 136 - 145 mmol/L 07/27/2017 7:34 AM EDT [facility] Potassium 4.1 3.5 - 5.0 mmol/L 07/27/2017 7:34 AM EDT [facility] Chloride 104 98 - 107 mmol/L 07/27/2017 7:34 AM EDT [facility] Total CO2 30(H) 22 - 29 mmol/L 07/27/2017 7:34 AM EDT [facility] Anion Gap 10 7 - 16 mmol/L 07/27/2017 7:34 AM EDT [facility] Calcium 9.0 8.8 - 10.2 mg/dL 07/27/2017 7:34 AM EDT [facility] Glucose Lvl 116(H) 82 - 100 mg/dL 07/27/2017 7:34 AM EDT [facility] BUN 27(H) 8 - 23 mg/dL 07/27/2017 7:34 AM EDT [facility] Creatinine 1.59(H) 0.51 - 1.30 mg/dL 07/27/2017 7:34 AM T [facility] GFR Afr Am 39 mL/min/1.7 3 m2 07/27/2017 7:34 AM T [facility] GFR Non Afr Am 34 mL/min/1.7 3 m2 07/27/2017 7:34 AM EDT [facility] Comment: GFR Afr Am and GFR [...] ORDERABLES Fin al Result Performing Organization Address [facility]/ZIP Co de Phone Number [facility] [address] [place] [address] * (ABNORMAL) CBC (07/27/2017 6:40 AM EDT) WBC 6.1 3.7 - 10.3 x10(3)/mcL 07/27/2017 7:17 AM EDT [facility] RBC 3.72(L) 3.90 - 5.20 x10(6)/mcL 07/27/2017 7:17 AM EDT [facility] Hgb 10.7(L) 11.2 - 15.7 g/dL 07/27/2017 7:17 AM EDT [facility] Hct 34.4 34.0 - 45.0 % 07/27/2017 7:17 AM EDT [facility] MCV 92.5 79.0 - 98.0 fL 07/27/2017 7:17 AM EDT [facility] MCH 28.8 26.0 - 32.0 pg 07/27/2017 7:17 AM EDT [facility] MCHC 31.1 30.7 - 35.5 g/dL 07/27/2017 7:17 AM EDT [facility] RDW 13.2 <=14.9 % 07/27/2017 7:17 AM EDT [facility] Platelet 182 155 - 369 x10(3)/mcL 07/27/2017 7:17 AM EDT [facility] MPV 11.5 8.8 - 12.5 fL 07/27/2017 7:17 AM EDT [facility] Blood VENOUS BLOOD / Unknown Capillary / Unknown 07/27/2017 6:40 AM EDT 07/27/2017 6:53 AM EDT Mayo Omalley DO HEMATOLOGY ORDERABLES Fi nal Result Performing Organization Address City/[facility]/ZIP Co de Phone Number [facility] [address] [place] [address] * ECG AND WAVEFORMS - TELEMETRY (07/27/2017 5:46 AM EDT) ECG INTERPRET Sinus Ankit with prolonged QT [facility] FOOD ADVISER APPROVED Yes [facility] 07/27/2017 5:46 AM EDT Narrative [facility] - 07/27/2017 5:48 AM EDT ??See Clinical Report link for waveform capture us Unknown Provider POINT OF CARE CARDIOLOGY Final Result Performing Organization Address [facility]/ZIP Co de Phone Number [facility] [address] [place] [address] * (ABNORMAL) GLUCOSE METER POC (07/26/2017 9:30 PM EDT) Glucose Meter POC 137(H) 70 - 100 mg/dL 07/26/2017 9:32 PM EDT [facility] Sample Type Capillary 07/26/2017 9:32 PM EDT [facility] Patient Status Non-Critical Patient 07/26/2017 9:32 PM EDT [facility] Blood BLOOD SPECIMEN / Unknown 07/26/2017 9:30 PM EDT 07/26/2017 9:32 PM EDT Mayo Omalley DO POINT OF CARE TEST ORDER DEBBIE Final Result Performing Organization Address [facility] Co de Phone Number [facility] [address] [place] [address] * (ABNORMAL) GLUCOSE METER POC (07/26/2017 5:23 PM EDT) Glucose Meter POC 158(H) 70 - 100 mg/dL 07/26/2017 5:25 PM EDT [facility] Sample Type Capillary 07/26/2017 5:25 PM EDT [facility] Patient Status Non-Critical Patient 07/26/2017 5:25 PM EDT [facility] Blood BLOOD SPECIMEN / Unknown 07/26/2017 5:23 PM EDT 07/26/2017 5:25 PM EDT Mayo Stewart Omalley DO POINT OF CARE TEST ORDER DEBBIE Final Result Performing Organization Address City/[facility]/[place] [address] * (ABNORMAL) GLUCOSE METER POC (07/26/2017 12:06 PM EDT) Glucose Meter POC 122(H) 70 - 100 mg/dL 07/26/2017 12:07 PM EDT [facility] Sample Type Capillary 07/26/2017 12:07 PM EDT [facility] Patient Status Non-Critical Patient 07/26/2017 12:07 PM EDT [facility] Blood BLOOD SPECIMEN / Unknown 07/26/2017 12:06 PM EDT 07/26/2017 12:07 PM EDT Mayo Omalley DO POINT OF CARE TEST ORDER DEBBIE Final Result Performing Organization Address [facility] [place] [address] * (ABNORMAL) BASIC METABOLIC PANEL (07/26/2017 10:03 AM EDT) Sodium 138 136 - 145 mmol/L 07/26/2017 10:40 AM EDT [facility] Potassium 4.5 3.5 - 5.0 mmol/L 07/26/2017 10:40 AM EDT [facility] Chloride 101 98 - 107 mmol/L 07/26/2017 10:40 AM EDT [facility] Total CO2 27 22 - 29 mmol/L 07/26/2017 10:40 AM EDT [facility] Anion Gap 10 7 - 16 mmol/L 07/26/2017 10:40 AM EDT [facility] Calcium 9.0 8.8 - 10.2 mg/dL 07/26/2017 10:40 AM EDT [facility] Glucose Lvl 155(H) 82 - 100 mg/dL 07/26/2017 10:40 AM EDT [facility] BUN 22 8 - 23 mg/dL 07/26/2017 10:40 AM EDT [facility] Creatinine 1.59(H) 0.51 - 1.30 mg/dL 07/26/2017 10:40 AM EDT [facility] GFR Afr Am 39 mL/min/1.7 3 m2 07/26/2017 10:40 AM EDT [facility] GFR Non Afr Am 34 mL/min/1.7 3 m2 07/26/2017 10:40 AM EDT [facility] Comment: GFR Afr Am and GFR [...] AM EDT 07/26/2017 10:11 AM EDT us Mike Winchester MD CHEMISTRY ORDERABLES Fi nal Result Performing Organization Address City/[facility]/ZIP Co de Phone Number [facility] [address] [place] [address] * (ABNORMAL) CBC (07/26/2017 10:03 AM EDT) WBC 6.3 3.7 - 10.3 x10(3)/[facility] 07/26/2017 10:24 AM EDT [facility] RBC 3.66(L) 3.90 - 5.20 x10(6)/mcL 07/26/2017 10:24 AM EDT [facility] Hgb 10.6(L) 11.2 - 15.7 g/dL 07/26/2017 10:24 AM EDT [facility] Hct 33.7(L) 34.0 - 45.0 % 07/26/2017 10:24 AM EDT [facility] MCV 92.1 79.0 - 98.0 fL 07/26/2017 10:24 AM EDT [facility] MCH 29.0 26.0 - 32.0 pg 07/26/2017 10:24 AM EDT [facility] MCHC 31.5 30.7 - 35.5 g/dL 07/26/2017 10:24 AM EDT [facility] RDW 13.3 <=14.9 % 07/26/2017 10:24 AM EDT [facility] Platelet 181 155 - 369 x10(3)/[facility] 07/26/2017 10:24 AM EDT [facility] MPV 11.7 8.8 - 12.5 fL 07/26/2017 10:24 AM EDT [facility] Blood VENOUS BLOOD / Unknown Venipuncture / Unknown 07/26/2017 10:03 AM EDT 07/26/2017 10:11 AM EDT Mayo Omalley DO HEMATOLOGY ORDERABLES Fi nal Result Performing Organization Address City/[facility]/ZIP Co de Phone Number [facility] [address] [place] [address] * SCANNED RHYTHM STRIPS (07/26/2017 9:14 AM EDT) Anatomical Region Laterality Modality Other 07/26/2017 9:14 AM EDT us Unknown Unknown IMG ECG ORDERABLES Final Result * (ABNORMAL) GLUCOSE METER POC (07/26/2017 7:17 AM EDT) Glucose Meter POC 128(H) 70 - 100 mg/dL 07/26/2017 7:19 AM EDT [facility] Sample Type Capillary 07/26/2017 7:19 AM EDT [facility] Patient Status Non-Critical Patient 07/26/2017 7:19 AM EDT [facility] Blood BLOOD SPECIMEN / Unknown 07/26/2017 7:17 AM EDT 07/26/2017 7:19 AM EDT Mayo Omalley DO POINT OF CARE TEST ORDER DEBBIE Final Result Performing Organization Address [facility] [place] [address] * (ABNORMAL) GLUCOSE METER POC (07/25/2017 11:00 PM EDT) Glucose Meter POC 138(H) 70 - 100 mg/dL 07/25/2017 11:01 PM EDT [facility] Sample Type Capillary 07/25/2017 11:01 PM EDT [facility] Patient Status Non-Critical Patient 07/25/2017 11:01 PM EDT [facility] Blood BLOOD SPECIMEN / Unknown 07/25/2017 11:00 PM EDT 07/25/2017 11:01 PM EDT Mayo Omalley DO POINT OF CARE TEST ORDER DEBBIE Final Result Performing Organization Address [facility] [place] [address] * ECG AND WAVEFORMS - TELEMETRY (07/25/2017 6:51 PM EDT) ECG INTERPRET Sinus Bradycardia [facility] FOOD ADVISER APPROVED Yes [facility] 07/25/2017 6:51 PM EDT Narrative [facility] - 07/25/2017 6:56 PM EDT *PVC* ??MI 0.19 ??QRS 0.07 ??QT 0.43 ??See Clinical Report link for waveform capture us Unknown Provider POINT OF CARE CARDIOLOGY Final Result Performing Organization Address [facility]/ZIP Co de Phone Number [facility] [address] [place] [address] * GLUCOSE METER POC (07/25/2017 5:32 PM EDT) Glucose Meter POC 90 70 - 100 mg/dL 07/25/2017 5:33 PM EDT [facility] Sample Type Capillary 07/25/2017 5:33 PM EDT [facility] Patient Status Non-Critical Patient 07/25/2017 5:33 PM EDT [facility] Blood BLOOD SPECIMEN / Unknown 07/25/2017 5:32 PM EDT 07/25/2017 5:33 PM EDT us Mayo Omalley DO POINT OF CARE TEST ORDER DEBBIE Final Result Performing Organization Address [facility] Co de Phone Number [facility] [address] [place] [address] * ECG AND WAVEFORMS - TELEMETRY (07/25/2017 5:31 PM EDT) ECG INTERPRET Sinus Bradycardia [facility] FOOD ADVISER APPROVED Yes [facility] 07/25/2017 5:31 PM EDT Narrative [facility] - 07/25/2017 5:42 PM EDT *PVC* ??MI 0.14 ??QRS 0.07 ??QT 0.48 ??See Clinical Report link for waveform capture us Unknown Provider POINT OF CARE CARDIOLOGY Final Result Performing Organization Address [facility]/ZIP Co de Phone Number [facility] [address] [place] [address] * (ABNORMAL) ACTIVATED CLOTTING TIME LR POC (07/25/2017 4:00 PM EDT) ACT-LR 176(H) 89 - 169 second(s) 07/25/2017 4:04 PM EDT [facility] Blood BLOOD SPECIMEN / Unknown 07/25/2017 4:00 PM EDT 07/25/2017 4:03 PM EDT Mayo Omalley DO POINT OF CARE TEST ORDER DEBBIE Final Result [facility] [address] [place] [address] * CORONARY ANGIOGRAM (COR/LHC/LV GRAM, CARDIAC CATHETERIZATION), [...] No LV gram was performed Pamela Oropeza [employer] CARDIAC CATH ORDERABLES Fin al Result Performing Organization Address [facility] Co de Phone Number [facility] * CLIENT LIAISON HEMODYNAMIC WAVEFORMS (07/25/2017 2:48 PM EDT) 07/25/2017 2:48 PM EDT Pamela Oropeza [employer] CARDIAC CATH ORDERABLES Fin al Result Performing Organization Address [facility] de Phone Number [facility] [address] [place] [address] * (ABNORMAL) GLUCOSE METER POC (07/25/2017 12:03 PM EDT) Glucose Meter POC 144(H) 70 - 100 mg/dL 07/25/2017 12:04 PM EDT [facility] Sample Type Capillary 07/25/2017 12:04 PM EDT [facility] Patient Status Non-Critical Patient 07/25/2017 12:04 PM EDT [facility] Blood BLOOD SPECIMEN / Unknown 07/25/2017 12:03 PM EDT 07/25/2017 12:04 PM EDT Mayo Omalley DO POINT OF CARE TEST ORDER DEBBIE Final Result Performing Organization Address [facility] de Phone Number [facility] [address] [place] [address] * (ABNORMAL) GLUCOSE METER POC (07/25/2017 8:28 AM EDT) Glucose Meter POC 159(H) 70 - 100 mg/dL 07/25/2017 8:36 AM EDT [facility] Sample Type Capillary 07/25/2017 8:36 AM EDT [facility] Patient Status Non-Critical Patient 07/25/2017 8:36 AM EDT [facility] Blood BLOOD SPECIMEN / Unknown 07/25/2017 8:28 AM EDT 07/25/2017 8:36 AM EDT us Mayo Omalley DO POINT OF CARE TEST ORDER DEBBIE Final Result Performing Organization Address City/[facility]/ZIP Co de Phone Number [facility] [address] [place] [address] * ECG AND WAVEFORMS - TELEMETRY (07/25/2017 7:58 AM EDT) [facility] ECG INTERPRET Sinus Bradycardia [facility] FOOD ADVISER APPROVED Yes [facility] 07/25/2017 7:58 AM EDT Narrative [facility] - 07/25/2017 8:01 AM EDT ??See Clinical Report link for waveform capture us Unknown Provider POINT OF CARE CARDIOLOGY Final Result Performing Organization Address [facility] Co de Phone Number [facility] [address] [place] [address] * (ABNORMAL) BASIC METABOLIC PANEL (07/25/2017 7:20 AM EDT) [facility] Sodium 138 136 - 145 mmol/L 07/25/2017 8:23 AM EDT [facility] Potassium 4.4 3.5 - 5.0 mmol/L 07/25/2017 8:23 AM EDT [facility] Chloride 100 98 - 107 mmol/L 07/25/2017 8:23 AM EDT [facility] Total CO2 27 22 - 29 mmol/L 07/25/2017 8:23 AM EDT [facility] Anion Gap 11 7 - 16 mmol/L 07/25/2017 8:23 AM EDT [facility] Calcium 8.9 8.8 - 10.2 mg/dL 07/25/2017 8:23 AM EDT [facility] Glucose Lvl 152(H) 82 - 100 mg/dL 07/25/2017 8:23 AM EDT [facility] BUN 20 8 - 23 mg/dL 07/25/2017 8:23 AM EDT [facility] Creatinine 1.66(H) 0.51 - 1.30 mg/dL 07/25/2017 8:23 AM EDT [facility] GFR Afr Am 37 mL/min/1.7 3 m2 07/25/2017 8:23 AM EDT [facility] GFR Non Afr Am 32 mL/min/1.7 3 m2 07/25/2017 8:23 AM EDT [facility] Comment: GFR Afr Am and GFR Non [...] 7:20 AM EDT 07/25/2017 7:41 AM EDT us Mayo Omalley DO CHEMISTRY ORDERABLES Fin al Result [address] [address] * HEPARIN ANTI-XA, UNF (07/25/2017 7:20 AM EDT) [facility] Heparin Level UNF 0.34 0.30 - 0.70 IU/mL 07/25/2017 7:52 AM EDT [facility] Comment: The therapeutic range for heparinized patients monitored by the Heparin Lvl UF is 0.30-0.70 IU/mL. Blood VENOUS BLOOD / Unknown Capillary / Unknown 07/25/2017 7:20 AM EDT 07/25/2017 7:40 AM EDT us Ela Zayas MD HEMATOLOGY ORDERABLES Final Result Performing Organization Address [facility] [place] [address] * (ABNORMAL) CBC (07/25/2017 7:20 AM EDT) [facility] WBC 9.5 3.7 - 10.3 x10(3)/mcL 07/25/2017 7:46 AM EDT [facility] RBC 3.73(L) 3.90 - 5.20 x10(6)/mcL 07/25/2017 7:46 AM EDT [facility] Hgb 11.0(L) 11.2 - 15.7 g/dL 07/25/2017 7:46 AM EDT [facility] Hct 34.4 34.0 - 45.0 % 07/25/2017 7:46 AM EDT [facility] MCV 92.2 79.0 - 98.0 fL 07/25/2017 7:46 AM EDT [facility] MCH 29.5 26.0 - 32.0 pg 07/25/2017 7:46 AM EDT [facility] MCHC 32.0 30.7 - 35.5 g/dL 07/25/2017 7:46 AM EDT [facility] RDW 13.5 <=14.9 % 07/25/2017 7:46 AM EDT [facility] Platelet 177 155 - 369 x10(3)/mcL 07/25/2017 7:46 AM EDT [facility] MPV 11.9 8.8 - 12.5 fL 07/25/2017 7:46 AM EDT [facility] Blood VENOUS BLOOD / Unknown Capillary / Unknown 07/25/2017 7:20 AM EDT 07/25/2017 7:40 AM EDT Mayo Omalley DO HEMATOLOGY ORDERABLES Fi nal Result Performing Organization Address City/[facility]/ZIP Co de Phone Number [address] [address] * (ABNORMAL) GLUCOSE METER POC (07/24/2017 9:22 PM EDT) Glucose Meter POC 173(H) 70 - 100 mg/dL 07/24/2017 9:23 PM EDT [facility] Sample Type Capillary 07/24/2017 9:23 PM EDT [facility] Patient Status Non-Critical Patient 07/24/2017 9:23 PM EDT [facility] Blood BLOOD SPECIMEN / Unknown 07/24/2017 9:22 PM EDT 07/24/2017 9:23 PM EDT Mayo Omalley DO POINT OF CARE TEST ORDER DEBBIE Final Result Performing Organization Address [facility] Co de Phone Number [address] [address] * (ABNORMAL) HEPARIN ANTI-XA, UNF (07/24/2017 8:57 PM EDT) Heparin Level UNF 0.22(L) 0.30 - 0.70 IU/mL 07/24/2017 9:41 PM EDT [facility] Comment: The therapeutic range for heparinized patients monitored by the Heparin Lvl UF is 0.30-0.70 IU/mL. Blood VENOUS BLOOD / Unknown Venipuncture / Unknown 07/24/2017 8:57 PM EDT 07/24/2017 9:02 PM EDT us Mayo Omalley DO HEMATOLOGY ORDERABLES Fi nal Result Performing Organization Address City/[facility]/ZIP Co de Phone Number [facility] [address] [place] [address] * ECG AND WAVEFORMS - TELEMETRY (07/24/2017 8:21 PM EDT) Pathologist [facility] ECG INTERPRET NSR [facility] FOOD ADVISER APPROVED Yes [facility] 07/24/2017 8:21 PM EDT Narrative [facility] - 07/24/2017 9:12 PM EDT ??See Clinical Report link for waveform capture us Unknown Provider POINT OF CARE CARDIOLOGY Final Result Performing Organization Address [facility] Co de Phone Number [facility] [address] [place] [address] * (ABNORMAL) GLUCOSE METER POC (07/24/2017 6:05 PM EDT) [facility] Glucose Meter POC 183(H) 70 - 100 mg/dL 07/24/2017 6:06 PM EDT [facility] Sample Type Capillary 07/24/2017 6:06 PM EDT [facility] Patient Status Non-Critical Patient 07/24/2017 6:06 PM EDT [facility] Blood BLOOD SPECIMEN / Unknown 07/24/2017 6:05 PM EDT 07/24/2017 6:06 PM EDT us Mayo Omalley DO POINT OF CARE TEST ORDER DEBBIE Final Result Performing Organization Address [facility]/ZIP Co de Phone Number [facility] [address] [place] [address] * (ABNORMAL) TROPONIN-T (07/24/2017 3:54 PM EDT) [facility] Troponin-T 0.10(H) <0.01 ng/mL 07/24/2017 4:19 PM EDT [facility] Blood CAPILLARY BLOOD / Unknown Capillary / Unknown 07/24/2017 3:54 PM EDT 07/24/2017 3:59 PM EDT Narrative [facility] - 07/24/2017 4:19 PM EDT Ingestion of charles doses of biotin (>5 mg/day) taken within 8 hours of drawing blood sample can interfere with this immunoassay test. us Ela Zayas MD CHEMISTRY ORDERABLES Final R esult Performing Organization Address [facility] Co de Phone Number [facility] [address] [place] [address] * ECG AND WAVEFORMS - TELEMETRY (07/24/2017 3:05 PM EDT) ECG INTERPRET NSR [facility] FOOD ADVISER APPROVED Yes [facility] 07/24/2017 3:05 PM EDT Narrative [facility] - 07/24/2017 3:15 PM EDT ??See Clinical Report link for waveform capture us Unknown Provider POINT OF CARE CARDIOLOGY Final Result Performing Organization Address [facility] de Phone Number [facility] [address] [place] [id number] * (ABNORMAL) GLUCOSE METER POC (07/24/2017 2:07 PM EDT) Glucose Meter POC 243(H) 70 - 100 mg/dL 07/24/2017 2:08 PM EDT [facility] Sample Type Capillary 07/24/2017 2:08 PM EDT [facility] Patient Status Non-Critical Patient 07/24/2017 2:08 PM EDT [facility] Blood BLOOD SPECIMEN / Unknown 07/24/2017 2:07 PM EDT 07/24/2017 2:08 PM EDT us Mayo Omalley DO POINT OF CARE TEST ORDER DEBBIE Final Result Performing Organization Address [facility] Co de Phone Number [facility] [address] [place] [address] * EK EKG 12 LEAD (07/24/2017 12:54 PM EDT) Anatomical Region Laterality Modality Electrocardiogra phy 07/24/2017 1:10 PM EDT Impressions 07/24/2017 8:21 PM EDT ? Stationary ECG Study ?[facility] ? Interpretive Statements ? SINUS RHYTHM LOW QRS VOLTAGE IN PRECORDIAL LEADS ANTERIOR MYOCARDIAL INFARCTION, PROBABLY OLD INFERIOR MYOCARDIAL INFARCTION, PROBABLY OLD No significant change except for rate Electronically Signed On 07-24-2017 20:21:08 EDT by Ashwin Hoffmann MD Narrative Procedure Note Ashwin Hoffmann MD - 07/24/2017 IMPRESSION Stationary ECG Study [facility] [place] Interpretive Statements SINUS RHYTHM LOW QRS VOLTAGE IN PRECORDIAL LEADS ANTERIOR MYOCARDIAL INFARCTION, PROBABLY OLD INFERIOR MYOCARDIAL INFARCTION, PROBABLY OLD No significant change except for rate Electronically Signed On 07-24-2017 20:21:08 EDT by Ashwin Hoffmann MD us Ela Zayas MD IMG ECG ORDERABLES Final Res ult * (ABNORMAL) TROPONIN-T (07/24/2017 11:19 AM EDT) Troponin-T 0.07(H) <0.01 ng/mL 07/24/2017 11:41 AM EDT [facility] Blood VENOUS BLOOD / Unknown Venipuncture / Unknown 07/24/2017 11:19 AM EDT 07/24/2017 11:22 AM EDT Narrative [facility] - 07/24/2017 11:41 AM EDT Ingestion of charles doses of biotin (>5 mg/day) taken within 8 hours of drawing blood sample can interfere with this immunoassay test. Ela Zayas MD CHEMISTRY ORDERABLES Final R esult Performing Organization Address [facility] [place] [address] * (ABNORMAL) TROPONIN-T (07/24/2017 9:13 AM EDT) Troponin-T 0.02(H) <0.01 ng/mL 07/24/2017 9:39 AM EDT [facility] Blood VENOUS BLOOD / Unknown Venipuncture / Unknown 07/24/2017 9:13 AM EDT 07/24/2017 9:17 AM EDT Narrative [facility] - 07/24/2017 9:39 AM EDT Ingestion of charles doses of biotin (>5 mg/day) taken within 8 hours of drawing blood sample can interfere with this immunoassay test. Ela Zayas MD CHEMISTRY ORDERABLES Final R ult Performing Organization Address [facility] [place] [address] * (ABNORMAL) BASIC METABOLIC PANEL (07/24/2017 9:13 AM EDT) Sodium 136 136 - 145 mmol/L 07/24/2017 9:35 AM EDT [facility] Potassium 4.6 3.5 - 5.0 mmol/L 07/24/2017 9:35 AM EDT [facility] Chloride 99 98 - 107 mmol/L 07/24/2017 9:35 AM EDT [facility] Total CO2 24 22 - 29 mmol/L 07/24/2017 9:35 AM [facility] Anion Gap 13 7 - 16 mmol/L 07/24/2017 9:35 AM [facility] Calcium 9.0 8.8 - 10.2 mg/dL 07/24/2017 9:35 AM [facility] Glucose Lvl 323(H) 82 - 100 mg/dL 07/24/2017 9:35 AM [facility] BUN 12 8 - 23 mg/dL 07/24/2017 9:35 AM [facility] Creatinine 1.17 0.51 - 1.30 mg/dL 07/24/2017 9:35 AM [facility] GFR Afr Am 56 mL/min/1.7 3 m2 07/24/2017 9:35 AM [facility] GFR Non Afr Am 49 mL/min/1.7 3 m2 07/24/2017 9:35 AM [facility] Comment: GFR Afr Am and GFR [...] Zayas MD CHEMISTRY ORDERABLES Final R esult [facility] [address] [place] [address] * (ABNORMAL) CBC WITH DIFF (07/24/2017 9:13 AM EDT) WBC 10.6 4.0 - 11.0 x10(3)/mcL 07/24/2017 9:21 AM EDT [facility] RBC 4.66 3.80 - 5.10 x10(6)/mcL 07/24/2017 9:21 AM EDT [facility] Hgb 13.6 12.0 - 15.6 g/dL 07/24/2017 9:21 AM EDT [facility] Hct 41.4 35.7 - 45.9 % 07/24/2017 9:21 AM EDT [facility] MCV 88.9 82.5 - 99.8 fL 07/24/2017 9:21 AM EDT [facility] MCH 29.2 27.0 - 34.3 pg 07/24/2017 9:21 AM EDT [facility] MCHC 32.8 32.1 - 35.3 g/dL 07/24/2017 9:21 AM EDT [facility] RDW 13.8 11.5 - 15.0 % 07/24/2017 9:21 AM EDT [facility] Platelet 167 144 - 423 x10(3)/mcL 07/24/2017 9:21 AM EDT [facility] MPV 10.2 6.8 - 10.8 fL 07/24/2017 9:21 AM EDT [facility] Neut Percent 87.9 % 07/24/2017 9:21 AM EDT [facility] Lymph Percent 6.2 % 07/24/2017 9:21 AM EDT [facility] Hayes Percent 5.4 % 07/24/2017 9:21 AM EDT [facility] Eos Percent 0.1 % 07/24/2017 9:21 AM EDT [facility] Baso Percent 0.4 % 07/24/2017 9:21 AM EDT [facility] Neut # 9.3(H) 1.8 - 7.7 x10(3)/[facility] 07/24/2017 9:21 AM EDT [facility] Lymph # 0.7 0.6 - 4.8 x10(3)/[facility] 07/24/2017 9:21 AM EDT [facility] Hayes # 0.6 0.0 - 1.3 x10(3)/[facility] 07/24/2017 9:21 AM EDT [facility] Eos# 0.0 0.0 - 0.5 x10(3)/[facility] 07/24/2017 9:21 AM EDT [facility] Baso # 0.0 0.0 - 0.2 x10(3)/[facility] 07/24/2017 9:21 AM EDT [facility] Blood VENOUS BLOOD / Unknown Venipuncture / Unknown 07/24/2017 9:13 AM EDT 07/24/2017 9:17 AM EDT us Ela Zayas MD HEMATOLOGY ORDERABLES Final Result Performing Organization Address [facility] Co de Phone Number [facility] [address] [phone] * EK EKG 12 LEAD (07/24/2017 8:41 AM EDT) Anatomical Region Laterality Modality Electrocardiogra phy 07/24/2017 8:33 AM EDT Impressions 07/24/2017 8:35 PM EDT ? Stationary ECG Study ?[facility]menaSandra Derw ? Interpretive Statements ? SINUS TACHYCARDIA WITH OCCASIONAL ECTOPIC PREMATURE COMPLEXES Ventricular premature beats ANTERIOR MYOCARDIAL INFARCTION, PROBABLY OLD INFERIOR MYOCARDIAL INFARCTION, OF INDETERMINATE AGE No significant change except for rate Electronically Signed On 07-24-2017 20:35:03 EDT by Ashwin Hoffmann MD Narrative Procedure Note Ashwin Hoffmann MD - 07/24/2017 IM[address] ECG Study 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 S/P ablation of atrial flutter Other postprocedural status Coronary artery disease involving [place] coronary artery of [place] heart with unstable angina pectoris (HCC) Chest pain Chest pain, unspecified Chest pain, unspecified type documented in this encounter Admitting Diagnoses Diagnosis Chest pain Chest pain, unspecified documented in this encounter Administered Medications Inactive Administered Medications - up to 1 most recent administrations Medication Order MAR Action Action Date Dose Rate Site acetaminophen (TYLENOL) tablet 650 mg 650 mg, Oral, EVERY 4 HOURS PRN, Starting on Wed07/25/17 at 1544, Until Wed07/27/17 at 2212, Pain, Maximum adult dose of acetaminophen is 4000 mg from all sources in 24 hours. , Post-op adenosine in sodium chloride 0.9% (ADENOSCAN) 1 mg/mL ivpb CONTINUOUS PRN, Starting on Wed07/25/17 at 1515, Until Wed07/25/17 at 1524, Intra-procedure(Cath) New Bag 07/25/2017 3:24 PM EDT 882 mL/hr 882 mL/hr amLODIPine (NORVASC) tablet 2.5 mg 2.5 mg, Oral, DAILY, First dose on [facility] 07/24/17 at 1530, Until Discontinued Given 07/27/2017 8:12 AM EDT 2.5 mg ARIPiprazole (ABILIFY) tablet 30 mg 30 mg, Oral, DAILY, First dose on [facility] 07/24/17 at 1530, Until Discontinued Given 07/27/2017 8:10 AM EDT 30 mg aspirin chewable tablet 81 mg 81 mg, Oral, DAILY, First dose on [facility] 07/24/17 at 1530, Until Discontinued Given [...] mL 25 mL, Intravenous, PRN, Starting on [facility] 07/24/17 at 1516, Until Wed07/27/17 at 2212, Low blood sugar, If FSBS less than 70 mg/dl and patient cannot take orally, Check FSBS every 30 minutes and repeat 25 mL of D50 IV push and notify physician if FSBS less than 70 mg/dL VESICANT EPINEPHrine injection 1 mg 1 mg, Intravenous, PRN, Starting on Wed07/25/17 at 1532, Until Wed07/27/17 at 2212, Ventricular fibrillation, Emergency order for V-FIB or Pulseless V-TACH, Emergency order for V-FIB or Pulseless V-TACH, Asystole, PEA. VESICANT fentaNYL (SUBLIMAZE) injection PRN, Starting on [facility] 07/25/17 at 1436, Until [facility] 07/25/17 at 1538, Intra-procedure(Cath) Given 07/25/2017 2:36 PM EDT 25 mcg fUROsemide (LASix) tablet 20 mg 20 mg, Oral, DAILY, First dose on Wed07/24/17 at 1530, Until Discontinued Given 07/27/2017 8:12 AM EDT 20 mg glipiZIDE (GLUCOTROL) tablet 10 mg 10 mg, Oral, 2 TIMES DAILY WITH MEALS, First dose on [facility] 07/24/17 at 1800, Until Discontinued Given [...] 2 units/ml in 0.9% NaCl 500 mL CONTINUOUS PRN, Starting on 07/25/17 at 1441, Until 07/25/17 at 1441, Intra-procedure(Cath) New Bag 07/25/2017 2:41 PM EDT 2 'Bag' insulin aspart U-100 (NovoLOG) injection 1-10 Units [...] Given 07/27/2017 8:12 AM EDT 25 mg lidocaine 20 mg/mL (2 %) injection PRN, Starting on 07/25/17 at 1445, Until 07/25/17 at 1538, Intra-procedure(Cath) Given 07/25/2017 2:45 PM EDT 10 mL lisinopril (PRINIVIL;ZESTril) tablet 20 mg 20 mg, Oral, DAILY, First dose on 07/24/17 at 1530, Until Discontinued, +++ACEI Medication+++ Given 07/27/2017 8:12 AM EDT 20 mg metoprolol (LOPRESSOR) tablet 25 mg 25 mg, Oral, 2 TIMES DAILY, First dose (after last modification) on 07/26/17 at 2100, Until Discontinued Given 07/26/2017 9:19 PM EDT 25 mg miconazole (MICATIN) 2 % powder Topical, 2 TIMES DAILY, 84 doses, First dose on Wed07/26/17 at 0900, Last dose on 09/05/17 at 2100, Application site: ananya area Given 07/27/2017 9:00 AM EDT midazolam (VERSED) injection PRN, Starting on 07/25/17 at 1437, Until 07/25/17 at 1538, Intra-procedure(Cath) Given 07/25/2017 2:37 PM EDT 1 mg nitroglycerin injection PRN, Starting on 07/25/17 at 1454, Until 07/25/17 at 1538, Intra-procedure(Cath) Given 07/25/2017 2:54 PM EDT 150 mcg pantoprazole (PROTONIX) tablet 40 mg 40 mg, Oral, DAILY, First dose on 07/24/17 at 1530, Until Discontinued, Do not crush or chew Given 07/27/2017 8:10 AM EDT 40 mg ranolazine (RANEXA) SR tablet 1,000 mg 1,000 mg, Oral, EVERY 12 HOURS SCHEDULED (2 times per day), First dose on Wed07/24/17 at 2100, Until Discontinued Given 07/27/2017 8:10 AM EDT 1,000 mg sertraline (ZOLOFT) tablet 200 mg 200 mg, Oral, DAILY, First dose on Wed07/24/17 [...] 2.5 mg, Oral, DAILY, First dose on Wed07/24/17 at 1530, Until Discontinued 0839 (Given - Provider: Gerard Reddy RN) 0824 (Given - Provider: Cece Nice RN) 0812 (Given - Provider: Manju Alvarez RN) ARIPiprazole (ABILIFY) tablet 30 mg 30 mg, Oral, DAILY, First dose on 07/24/17 at 1530, Until Discontinued 0838 (Given - Provider: Gerard Reddy RN) 0824 (Given - Provider: Cece Nice RN) 0810 (Given - Provider: Manju Alvarez RN) aspirin chewable tablet 81 mg 81 mg, Oral, DAILY, First dose on 07/24/17 at 1530, Until Discontinued 0837 (Given - Provider: Gerard Reddy RN) 0823 (Given - Provider: Cece Nice RN) 0810 (Given - Provider: Manju Alvarez RN) atorvastatin (LIPITOR) tablet 20 mg 20 mg, Oral, NIGHTLY, First dose on 07/24/17 at 2100, Until Discontinued 2245 (Given - Provider: Faby Omer, ROLF) 2118 (Given - Provider: Dane Sanchez RN) cloNIDine HCl (CATAPRES) tablet 0.1 mg 0.1 mg, Oral, 2 TIMES DAILY, First dose on 07/24/17 at 2100, Until Discontinued 0839 (Given - Provider: Gerard Reddy RN)2200 (Not Given - Provider: Faby Omer RN - Reason: Other - Comment: sbp 90s) 0823 (Given - Provider: Cece Nice, ROLF)2118 (Given - Provider: Dane Sanchez, ROLF) 0811 [...] Nice RN) 0812 (Given - Provider: Manju Alvarez, ROLF) glipiZIDE (GLUCOTROL) tablet 10 mg 10 mg, Oral, 2 TIMES DAILY WITH MEALS, First dose on 07/24/17 at 1800, Until Discontinued 0839 (Given - Provider: Gerard Reddy RN)1819 (Given - Provider: Ela Zhang RN) 0824 (Given - Provider: Cece Nice, ROLF)1739 (Given - Provider: Cece Nice, ROLF) 0811 (Given - Provider: Manju Alvarez RN)1800 [...] least 3 hours. Waste Sort Code = [facility] 0800 (Not Given - Provider: Gerard Reddy [...] other insulins Waste Sort Code = BK 2023 (Given - Provider: Faby Omer RN) 181 (Given - Provider: Cece Nice RN) isosorbide mononitrate (IMDUR) CR tablet 60 mg 60 mg, Oral, DAILY, First dose on 07/24/17 at 1530, Until Discontinued 0838 (Given - Provider: Gerard Reddy RN - Comment: [id number]) 0824 (Given - Provider: Cece Nice RN) 0812 (Given - Provider: Manju Alvarez RN) lamoTRIgine (LaMICtal) tablet 25 mg 25 mg, Oral, 2 TIMES DAILY, First dose on 07/24/17 at 2100, Until Discontinued 0838 (Given - Provider: Gerard Reddy RN)2246 (Given - Provider: Faby Omer RN) 0823 (Given - Provider: Cece Nice RN)211 (Given - Provider: Dane Sanchez RN) 08 (Given - Provider: Manju Alvarez RN) lisinopril (PRINIVIL;ZESTril) tablet 20 mg 20 mg, Oral, DAILY, First dose on 07/24/17 at 1530, Until Discontinued, +++ACEI Medication+++ 0839 (Given - Provider: Gerard Reddy RN) 0823 (Given - Provider: Cece Nice RN) 0812 (Given - Provider: Manju Alvarez, ROLF) metoprolol [...] Reddy RN)2199 (Not Given - Provider: Faby Omer, ROLF - Reason: Other - Comment: sbp 90s , hr 50s) 08 (Not Given - Provider: Cece Nice RN - Reason: Contraindicated - Comment: Heart rate in 50's, [employer] infromed to hold) miconazole (MICATIN) 2 % powder Topical, 2 TIMES DAILY, 84 doses, First dose on 07/26/17 at 0900, Last dose on Wed09/05/17 at 2100, Application site: ananya area 1147 (Given - Provider: Cece Nice RN)2119 (Given - Provider: Dane Sanchez RN) 899 (Given - Provider: Manju Alvarez, ROLF) pantoprazole [...] Discontinued 0838 (Given - Provider: Gerard Reddy RN)224 (Given - Provider: Faby Omer, ROLF) 08 (Given - Provider: Cece Nice RN)2118 (Given - Provider: Dane Sanchez RN) 0810 (Given - Provider: Manju Alvarez, ROLF) sertraline (ZOLOFT) tablet 200 mg 200 mg, Oral, DAILY, First dose on 07/24/17 at 1530, Until Discontinued 0839 (Given - Provider: Gerard Reddy, RN) 0824 (Given - Provider: Cece Nice, ROLF) 0810 (Given - Provider: Manju Alvarez RN) sodium chloride 0.9% syringe Intravenous, EVERY 8 HOURS SCHEDULED (3 times per day), First dose on 07/26/17 at 0600, Until Discontinued, Flush with 3-5 mL saline for PERIPHERAL saline lock maintenance. 0646 (Given - Provider: Faby Omer RN)1740 (Given - Provider: Cece Nice RN)2128 (Given - Provider: Dane Sanchez RN) 0600 (Not Given - Provider: Dane Sanchez RN - Reason: Contraindicated)140 0 (Not Given - Provider: Manju Alvarez RN - Reason: Loss of IV access) traZODone (DESYREL) tablet 150 mg 150 mg, Oral, NIGHTLY, First dose on 07/24/17 at 2100, Until Discontinued 2200 (Not Given - Provider: Faby Omer RN - Reason: Sedated/Sleeping) 2118 (Given - Provider: Dane Sanchez RN) Continuous Medication Order 07/25/2017 07/26/2017 07/27/2017 0.9 % NaCl infusion (CANCELED) Intravenous, at 150 mL/hr, CONTINUOUS, Starting on 07/24/17 at 1700, Until 07/25/17 at 1544, Start 2 hours prior to procedure at 150 mL/hr. If Sodium Bicarbonate drip to infuse, 0.9% Normal Saline to infuse at Keep Open Rate., Pre-op (Floor Meds) 1110 (New Bag - Provider: Gerard Reddy RN) 0814 (IV Stopped by Other - Provider: Cece Nice RN - Comment: not runnig during my shift) 0.9 % NaCl infusion () Intravenous, at 150 mL/hr, CONTINUOUS, Starting on 07/25/17 at 1545, Until 07/25/17 at 1944, If infusion complete, infuse 0.9% Normal Saline at KOR until sheath is removed., Post-op 1545 (Rate/Dose Verify - Provider: Deisy Campuzano, RN) 0812 (IV Stopped by Other - Provider: Cece Nice, ROLF - Comment: not running during my shift) heparin 25,000 units in 250 mL 0.45% NaCl (CANCELED) 1,500 Units/hr (15 mL/hr), Intravenous, CONTINUOUS, Starting on 07/24/17 at 1330, Until 07/25/17 at 1531 0805 (New Bag - Provider: Gerard Reddy RN)1232 (Stopped - Provider: Arpita Croft RN) PRN Medication Order 07/25/2017 07/26/2017 07/27/2017 acetaminophen (TYLENOL) tablet 650 mg 650 mg, Oral, EVERY 4 HOURS PRN, Starting on 07/25/17 at 1544, Until Tu07/27/17 at 2212, Pain, Maximum adult dose of [...] 07/25/17 at 1532, Until 07/27/17 at 2212, Symptomatic bradycardia, emergency treatment, Administer IV push for symptomatic bradycardia, may repeat every 3-5 minutes to total of 3 mg. dextrose 50 % solution 25 g 25 g, Intravenous, PRN, Starting on 07/25/17 at 1532, Until 07/27/17 at 2212, Low blood sugar, for emergency [...] 07/25/17 at 1532, Until Tu07/27/17 at 2212, Ventricular fibrillation, Emergency order for V-FIB or Pulseless V-TACH, Emergency order for V-FIB or Pulseless V-TACH, Asystole, PEA. VESICANT fentaNYL (SUBLIMAZE) injection (CANCELED) PRN, Starting on 07/25/17 at 1436, Until Wed07/25/17 at 1538, Intra-procedure(Cath) 143 (Given - Provider: Simran Gary) glucagon (human [...] PRN, Starting on 07/25/17 at 1441, Until Wed07/25/17 at 1441, Intra-procedure(Cath) 1441 (New Bag - Provider: Simran Gary) lidocaine 20 mg/mL (2 %) injection (CANCELED) PRN, Starting on 07/25/17 at 1445, Until 07/25/17 at 1538, Intra-procedure(Cath) 1445 (Given - Provider: Mike Winchester MD) LORazepam (ATIVAN) tablet 1 mg 1 mg, Oral, EVERY 4 HOURS PRN, Starting on 07/25/17 at 1544, Until Wed07/27/17 at 1543, Anxiety, Restlessness, Post-op 2022 (Given - Provider: Faby Omer RN) 2118 (Given - Provider: Dane Sanchez, ROLF) 08 (Given - Provider: Manju Alvarez RN) [...] Count Last Ordered Date First Ordered Date metoprolol (LOPRESSOR) tablet 25 mg 1 07/26 miconazole (MICATIN) 2 % powder 1 8 sodium chloride 0.9% syringe 2 07/26/2017 0.9 % NaCl infusion 2 07/25/2017 07/25/19 18 acetaminophen (TYLENOL) tablet 650 mg 1 atropine injection 0.5 mg 1 07/25/2017 clopidogrel (PLAVIX) tablet 75 mg 2 018 dextrose 50 % solution 25 g 1 07/25/2017 EPINEPHrine injection 1 mg 1 07/25/2017 LORazepam (ATIVAN) tablet 1 mg 1 07/25/2017 morphine injection 4 mg 1 07/25/2017 oxyCODONE-acetaminophen (PER COCET) 5-325 mg per tablet 1-2 Tab 1 07/25/2017 amLODIPine (NORVASC) tablet 2.5 mg 1 2017 ARIPiprazole (ABILIFY) tablet 30 mg 07/24 aspirin chewable tablet 324 mg 1 07/24/2017 aspirin chewable tablet 81 mg 1 07/24/2017 atorvastatin (LIPITOR) tablet 20 mg 1 07/24 cloNIDine HCl (CATAPRES) tablet 0.1 mg 1 dextrose 50 % solution 25 mL 07/24/2017 fUROsemide (LASix) tablet 20 mg 8 glipiZIDE (GLUCOTROL) tablet 10 mg 2017 glucagon (human recombinant) (GLUCAGEN) injection 1 mg 1 07/24/2017 heparin (porcine) injection 4,000 Units 1 0 07/24/2017 heparin (porcine) injection 5,000 Units 1 0 07/24/2017 heparin 25,000 units in 250 mL 0.45% NaCl 2 07/24/2017 insulin aspart U-100 (NovoLO G) injection 1-10 Units 1 07/24/2017 insulin glargine (LANTUS) in jection 28 Units 1 07/24/2017 isosorbide mononitrate (IMDU R) CR tablet 60 mg 07/24/2017 lamoTRIgine (LaMICtal) tablet 25 mg 07/24 lisinopril (PRINIVIL;ZESTril) tablet 20 mg 1 07/24/2017 metoprolol (LOPRESSOR) tablet 50 mg 1 07/24 nitroGLYCERIN (NITROSTAT) SL tablet 0.4 mg 07/24/2017 pantoprazole (PROTONIX) tablet 40 mg 07/06 ranolazine (RANEXA) SR tablet 1,000 mg 1 risperiDONE (RisperDAL) tablet 0.5 mg sertraline (ZOLOFT) tablet 200 mg 1 018 sodium chloride 0.9% syringe 5-10 mL 1 07/06 traZODone (DESYREL) tablet 150 mg 1 018 Procedures Count Last Ordered Date First Orde red Date CASE REQUEST CLIENT LIAISON 1 07/24/2017 Nursing Count Last Ordered Date First Orde red Date ADMISSION 1 07/24/2017 [facility] NON-CANDIDATE 1 07/24/2017 Consult [...] documented as of this encounter Care Teams Pe[employer]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
--- OUTSIDE RECORDS SUMMARY | 2024-02-16 14:55 | XMS_ITS | Encounter Summary ---
Author Organization [place] [address] Care Team Providers Care Hydrochloric Area Supervisor Name Role Phone Sharee Segovia APRN Primary Care Provider [phone] Reason for Visit * Reason Comments Hypertension pt from [facility], called EMS multiple times today for several different reasons. complains of blurred vision and feeling light headed and HTN. VSS stable per EMS Encounter Details Date Type Department Care Team (Late st Contact Info) Description 07/11/2017 7:29 PM EDT - 07/11/2017 10:17 PM EDT Emergency [facility] [address] [place] [address]. [place] [address] Nasir Yanez MD [address] [place] [id number] Nonintractable headache, unspecified chronicity pattern, unspecified headache type (Primary Dx) Discharge Disposition: Home or [...] Sign Reading Time Taken Comments Blood Pressure 165/86 07/11/2017 10:04 PM EDT Pulse 60 07/11/2017 10:04 PM EDT Temperature 37 ??C (98.6 ??F) 07/11/2017 7:35 PM EDT Respiratory Rate 18 07/11/2017 10:04 PM EDT Oxygen Saturation 94% 07/11/2017 10:04 PM EDT Inhaled Oxygen Concentration - - Weight 109.8 kg (242 lb) 07/11/2017 7:33 PM EDT Height 172.7 cm (5' 8 ) 07/11/2017 7:33 PM EDT Body Mass Index 36.8 07/11/2017 7:33 PM EDT documented in this encounter Discharge Instructions * Discharge Instructions* Faby rUeña PA-C - 07/11/2017 9:58 PM EDT Follow-up with your primary care provider in the next 2 days for recheck. Return if you develop confusion, syncope, unilateral weakness, difficulty walking/talking, chest pain, and any other concerns. documented in this encounter Medications at Time [...] ONCE DAILY 30 Tab 1 03/24/2017 9 nitroGLYCERIN (NITROSTAT) 0.4 mg SL Tablet, SublingualIndicat ions:Angina pectoris (HCC) Place 1 Tab under the tongue every 5 minutes as needed for Chest pain. 20 Tab 2 11/19/2016 9 Saccharomyces boulardii (FLORASTOR) 250 mg Oral Capsule Take 1 Cap by mouth 2 times daily. 60 Cap 05/12/2017 8 documented as of this encounter Discharge Disposition Disposition Code Departure Means Destination Home or Self [facility] documented in this encounter ED Notes * Brianne Vazquez RN - 07/11/2017 7:29 PM EDT Bed: [facility] Expected date: Expected time: Means of arrival: Comments: jerry noble/ * Faby Ureña PA-C - 07/11/2017 7:29 PM EDT Chief Complaint Patient presents with ??? Hypertension pt from [facility] [place], called EMS multiple times today for several different reasons. complainsof blurred vision and feeling light headed and HTN. VSS stable per EMS Patient is a 67-year-old female with a past medical history significant for hypertension, diabetes mellitus, CVA, intellectual disability, and schizoaffective disorder presenting to the emergency department via EMS with multiple complaints. Patient has resided at the [facility] for the last 3 years. She reportedly asked staff to contact EMS for her multiple times today. The first time was for concern of hypoglycemia. When they checked it upon arrival, her blood glucose was within normal limits. They were then called out a second time, but exact reasoning is unknown. EMS was again called out for the third time today for hypertension. Again, her vital signs were stable, but they decided to bring her to the ED for further evaluation. Patient is currently complaining of lightheadedness, blurry vision, and frontal headache. Patient'sheadache began 1.5 hours ago. It was gradual in-onset. She describes it as if someone is stepping on her head. She denies head trauma, fever, neck stiffness, and loss of consciousness. She denies chest pain and shortness of breath. She also denies visual field cuts. Patient presents here for further evaluation. Patient History Allergies Allergen Reactions ??? Compazine [Prochlorperazine Edisylate] ??? Thurmond ??? Pentazocine Hcl ??? Prochlorperazine Maleate ??? Talwin [Pentazocine Lactate] Home Medications: Prior to Admission medications Medication Sig Start Date End Date Taking? Authorizing Provider acetaminophen 325 mg Oral Tab Take 650 mg by mouth every 4 hours as needed for Pain. Provider, Historical ARIPiprazole (ABILIFY) 30 mg Oral Tablet Take 1 Tab by mouth daily. 02/23/17 Eric Gavin MD aspirin 81 mg Oral Tablet, Chewable Take 1 Tab by mouth daily. 04/14/17 Sherif Bartholomew MD atorvastatin (LIPITOR) 20 mg Oral Tablet TAKE ONE TABLET BY MOUTH NIGHTLY 03/24/17 Joanna Pierce MD ferrous sulfate 325 mg (65 mg iron) Oral Tablet Take 1 Tab by mouth 2 times daily (with meals). 04/04/15 Campbell Huston MD fUROsemide (LASIX) 20 mg Oral Tablet Take 1 Tab by mouth daily. 05/12/17 Eric Gavin MD glipiZIDE (GLUCOTROL) 10 mg Oral Tablet Take 10 mg by mouth 2 times daily (with meals). Provider, Historical hydrOXYzine (VISTARIL) 25 mg Oral Capsule Take 1 Cap by mouth every 6 hours as needed. 05/12/17 Eric Gavin MD insulin glargine (LANTUS) 100 unit/mL SubQ Solution Subcutaneous (Inject under the skin) 28 Units every evening. 02/23/17 Eric Gavin MD isosorbide mononitrate (IMDUR) 60 mg Oral Tablet Sustained Release 24 hr TAKE ONE TABLET BY MOUTH ONCE DAILY 03/24/17 Joanna Pierce MD lamoTRIgine (LAMICTAL) 25 mg Oral Tablet Take 1 Tab by mouth 2 times daily. 05/12/17 Eric Gavin MD lisinopril (PRINIVIL;ZESTRIL) 5 mg Oral Tablet Take 5 mg by mouth daily. Provider, Historical metoprolol (LOPRESSOR) 50 mg [...] MOUTH EVERY 12 HOURS 06/28/17Joanna Pierce MD Saccharomyces boulardii (FLORASTOR) 250 mg Oral Capsule Take 1 Cap by mouth 2 times daily. 05/12/17 Eric Gavin MD sertraline (ZOLOFT) 100 mg Oral Tablet Take 200 mg by mouth daily. Reported on 08/12/2016 Provider, Historical traZODone (DESYREL) 300 mg Oral Tablet Take 1 Tab by mouth nightly. 05/12/17 Eric Gavin MD Past Medical History: Past Medical History: Diagnosis Date ??? Atrial flutter ([facility]) EPS, AFL Ablation on 12/31/[address] Tee ??? CHF (congestive heart failure) ([facility]) ??? COPD (chronic obstructive pulmonary disease) ([facility]) ??? DDD (degenerative disc disease) ??? Diabetes mellitus ([facility]) ??? Hypertension ??? Intellectual disability 05/03/2017 ??? [place] (myocardial infarction) ([facility]) ??? RLS (restless legs syndrome) ??? Schizoaffective disorder, depressive type ([facility]) 02/19/2017 ??? Stroke ([facility]) 2010 left side affected ??? Suicide attempt ([facility]) ??? Urinary incontinence ??? Yeast infection recurrent [...] AND BRUSHING; Surgeon: Chrissy Brown MD; Location: [facility]; Service: Endoscopy Review of Systems Review of Systems Constitutional: Negative for fever. Eyes: Positive for visual disturbance. Cardiovascular: Negative for chest pain. Gastrointestinal: Negative for vomiting. Musculoskeletal: Negative for neck stiffness. Skin: Negative for color change, pallor, rash and wound. Neurological: Positive for light-headedness and headaches. Negative for syncope. Psychiatric/Behavioral: Negative for confusion. Physical Exam Blood pressure 165/86, pulse 60, temperature 98.6 ??F (37 ??C), temperature source Oral, resp. rate18, height 5' 8 (1.727 m), weight 242 lb (109.8 kg), SpO2 94 %. Physical Exam Constitutional: She is oriented to person, place, and time. She appears well- developed and well-nourished. No distress. Non-toxic female sitting upright in bed. She is in no acute distress. HENT: Head: Normocephalic and atraumatic. Right Ear: External ear normal. Left Ear: External ear normal. Nose: Nose normal. Eyes: Conjunctivae and EOM are normal. Pupils are equal, round, and reactive to light. Right eye exhibits no discharge. Left eye exhibits no discharge. No scleral icterus. Pupils round and reactive to light. Neck: Normal range of motion. Neck supple. Cardiovascular: Normal rate and regular rhythm. Exam reveals no gallop and no friction rub. No murmur heard. Pulmonary/Chest: Effort normal and breath sounds normal. No respiratory distress. She has no wheezes. She has no rales. Lungs clear to auscultation. Musculoskeletal: She exhibits no edema. Neurological: She is alert and oriented to person, place, and time. No cranial nerve deficit. She exhibits normal muscle tone. Coordination normal. Patient is alert and oriented x 3. Strength of upper and lower extremities is 5/5 bilaterally. Handgrip strength normal. Cranial nerves II-XII intact. Skin: Skin is warm and dry. No rash noted. She is not diaphoretic. No erythema. No pallor. Psychiatric: She has a normal mood and affect. Nursing note and vitals reviewed. Procedures Radiology/EKG/Labs: Results for orders placed or performed during the hospital encounter of 07/11/17 CT HEAD WO CONTRAST Narrative CT HEAD WO CONTRAST 07/11/2017 8:58 PM CLINICAL HISTORY: -OLGUIN/blurry vision COMPARISON: 10/18/2014 PROCEDURE COMMENTS: Routine noncontrast head CT with multiplanar reconstructions. Automated exposure control for dose reduction was used. CTDIvol: 48.1 mGy. DLP: 882 mGy-cm. FINDINGS: No evidence of acute stroke, mass, or hemorrhage. No fracture or extra-axial collection. Chronic senescent white matter changes. Included portions of the paranasal sinuses, mastoids, and orbits unremarkable. Impression No acute intracranial abnormality. CBC WITH DIFF Result Value Ref Range WBC 10.2 4.0 - 11.0 x10(3)/mcL RBC 4.40 3.80 - 5.10 x10(6)/mcL Hgb 13.1 12.0 - 15.6 gm/dL Hct 38.9 35.7 - 45.9 % MCV 88.4 82.5 - 99.8 fL MCH 29.8 27.0 - 34.3 pg MCHC 33.7 32.1 - 35.3 gm/dL RDW 14.1 11.5 - 15.0 % Platelet 207 144 - 423 x10(3)/mcL MPV 9.4 6.8 - 10.8 fL Neut Percent 66.1 % Lymph Percent 23.3 % [place] Percent 7.1 % Eos Percent 2.2 % Baso Percent 1.3 % Neut # 6.7 1.8 - 7.7 x10(3)/mcL Lymph # 2.4 0.6 - 4.8 x10(3)/mcL [place] # 0.7 0.0 - 1.3 x10(3)/mcL Eos# 0.2 0.0 - 0.5 x10(3)/mcL Baso # 0.1 0.0 - 0.2 x10(3)/mcL BASIC METABOLIC PANEL Result Value Ref Range Sodium 142 136 - 145 mmol/L Potassium 3.9 3.5 - 5.0 mmol/L Chloride 102 98 - 107 mmol/L Total CO2 27 22 - 29 mmol/L Anion Gap 13 7 - 16 mmol/L Calcium 9.1 8.8 - 10.2 mg/dL Glucose Lvl 123 (H) 82 - 100 mg/dL BUN 8 8 - 23 mg/dL Creatinine 1.04 0.51 - 1.30 mg/dL GFR Afr Am 65 mL/min/1.73 m2 GFR Non Afr Am 57 mL/min/1.73 m2 TROPONIN-T Result Value Ref Range Troponin-T <0.01 <0.01 ng/mL Narrative Ingestion of charles doses of biotin (>5 mg/day) taken within 8 hours of drawing blood sample can interfere with this immunoassay test. GLUCOSE METER POC Result Value Ref Range Glucose Meter POC 140 (H) 70 - 100 mg/dL Sample Type Capillary Patient Status Non-Critical Patient EK EKG 12 LEAD Impression Stationary ECG Study [facility] Interpretive Statements SINUS BRADYCARDIA LOW QRS VOLTAGE IN PRECORDIAL LEADS [QRS DEFLECTION < 1.0 mV IN CHEST LEADS] INFERIOR MYOCARDIAL INFARCTION [40+ ms Q WAVE AND/OR ST/T ABNORMALITY IN II/aVF], P PROBABLY OLD ANTEROSEPTAL MYOCARDIAL INFARCTION [40+ ms Q WAVE IN V1-V4], PROBABLY OLD No acute ST-T wave abnormality Compared to previous EKG, no significant change. Correlate clinically. Electronically Signed On 07-12-2017 13:52:53 EDT by Herminio Avitia MD ED Course: Patient is a 67-year-old female with a past medical history significant for hypertension, diabetes mellitus, CVA, intellectual disability, and schizoaffective disorder who presented to the emergency department via EMS with multiple complaints. Patient was seen for Dr. Yanez. Tylenol 650 mg PO was given for headache. Blood work and a head CT without contrast were ordered asa precaution. BMP was remarkable for hyperglycemia at 123. Otherwise, blood work was within normal limits, including troponin ??1. No acute ST or T-wave changes appreciated on EKG. Head imaging was within normal limits. Toradol 15 mg was given with improvement. Visual acuity was attempted, but patient was not very cooperative. Patient was non-toxic throughout her ED stay. She was resting comfortably in bed watching TV. I believe that outpatient management is appropriate at this time. She was strongly encouraged to contact her primary care provider for a recheck. Return precautions were given. All questions were answered and the patient was in agreement with this treatment plan. She was transferred back to [facility] in stable condition. ED Clinical Impression: Nonintractable headache, unspecified chronicity pattern, unspecified headache type (primary encounter diagnosis) Critical Care time Condition at Discharge/Transfer from Department: Stable This chart was completed using voice recognition technology and may contain unintended errors Faby Ureña PA-C 07/15/17 1100 Cosigned by Nasir Yanez MD at 07/16/2017 8:07 AM EDT Associated attestation - Nasir Yanez MD - 07/16/2017 8:07 AM EDT I have reviewed the chief complaint and history of present illness and review of systems as well asthe past medical/social/family history sections for this patient. I have examined this patient, andparticipated in the care of this patient. I have reviewed the pertinent clinical information including physical exam, labs, radiographic studies and the plan. This patient was seen in coordination with PA/MEDICAL ADVISOR. This chart was completed using voice recognition [...] Mead RMA documented as of this encounter Procedures Procedure Name Priority Date/Time Associated Diagnosis Comments CT HEAD WO CONTRAST STAT 07/11/2017 8 :58 PM EDT EK EKG 12 LEAD STAT 07/11/2017 8:04 PM EDT TROPONIN-T STAT 07/11/2017 8:04 PM EDT CBC WITH DIFF STAT 07/11/2017 8:04 PM EDT BASIC METABOLIC PANEL STAT 07/11/2017 8:04 PM EDT GLUCOSE METER POC Routine 07/11/2017 7:4 4 PM EDT documented in this encounter Results * CT HEAD WO CONTRAST (07/11/2017 8:58 PM EDT) Anatomical Region Laterality Modality Head Computed Tomogra phy 07/11/2017 8:58 PM EDT Impressions 07/11/2017 9:12 PM EDT No acute intracranial abnormality. Narrative 07/11/2017 9:[address] HEAD WO CONTRAST ??07/11/2017 8:58 PM ?? CLINICAL HISTORY: ??-OLGUIN/blurry vision COMPARISON: ??10/18/2014 PROCEDURE COMMENTS: Routine noncontrast head CT with multiplanar reconstructions. ??Automated exposure control for dose reduction was used. CTDIvol: 48.1 mGy. DLP: 882 mGy-cm. FINDINGS: ?? No evidence of acute stroke, mass, or hemorrhage. No fracture or extra-axial collection. Chronic senescent white matter changes. Included portions of the paranasal sinuses, mastoids, and orbits unremarkable. Procedure Note Kyrie Sheppard MD - 07/11/2017 CT HEAD WO CONTRAST 07/11/2017 8:58 PM CLINICAL HISTORY: -OLGUIN/blurry vision COMPARISON: 10/18/2014 PROCEDURE COMMENTS: Routine noncontrast head CT with multiplanar reconstructions. Automated exposure control for dose reduction wasused. CTDIvol: 48.1 mGy. DLP: 882 mGy-cm. FINDINGS: No evidence of acute stroke, mass, or hemorrhage. No fracture orextra-axial collection. Chronic senescent white matter changes. Included portions of the paranasal sinuses, mastoids, and orbitsunremarkable. IMPRESSION: No acute intracranial abnormality. us Nasir Yanez MD IMG CT ORDERABLES Final Result * EK EKG 12 LEAD (07/11/2017 8:04 PM EDT) Anatomical Region Laterality Modality Electrocardiogra phy 07/11/2017 8:12 PM EDT Impressions 07/12/2017 1:52 PM EDT ? Stationary ECG Study ? [facility] ? Interpretive Statements ? SINUS BRADYCARDIA LOW QRS VOLTAGE IN PRECORDIAL LEADS [QRS DEFLECTION < 1.0 mV IN CHEST LEADS] INFERIOR MYOCARDIAL INFARCTION [40+ ms Q WAVE AND/OR ST/T ABNORMALITY IN II/aVF], P PROBABLY OLD ANTEROSEPTAL MYOCARDIAL INFARCTION [40+ ms Q WAVE IN V1-V4], PROBABLY OLD No acute ST-T wave abnormality Compared to previous EKG, no significant change. Correlate clinically. Electronically Signed On 07-12-2017 13:52:53 EDT by Herminio Avitia MD Narrative Procedure Note Herminio Avitia MD - 07/12/2017 IMPRESSION Stationary ECG Study [facility] Interpretive Statements SINUS BRADYCARDIA LOW QRS VOLTAGE IN PRECORDIAL LEADS [QRS DEFLECTION < 1.0 mV IN CHESTLEADS] INFERIOR MYOCARDIAL INFARCTION [40+ ms Q WAVE AND/OR ST/T ABNORMALITY IN II/aVF], P PROBABLY OLD ANTEROSEPTAL MYOCARDIAL INFARCTION [40+ ms Q WAVE IN V1-V4], PROBABLYOLD No acute ST-T wave abnormality Compared to previous EKG, no significant change. Correlate clinically. Electronically Signed On 07-12-2017 13:52:53 EDT by Herminio Avitia MD Nasir Yanez MD IMG ECG ORDERABLES Final Result * TROPONIN-T (07/11/2017 8:04 PM EDT) [facility] Troponin-T <0.01 <0.01 ng/mL 07/11/2017 8:25 PM EDT [facility] Blood VENOUS BLOOD / Unknown Venipuncture / Unknown 07/11/2017 8:04 PM EDT 07/11/2017 8:06 PM EDT Narrative [facility] - 07/11/2017 8:25 PM EDT Ingestion of charles doses of biotin (>5 mg/day) taken within 8 hours of drawing blood sample can interfere with this immunoassay test. Nasir Yanez MD CHEMISTRY ORDERABLES Final Resu lt [facility] [address] [place] [address] * (ABNORMAL) BASIC METABOLIC PANEL (07/11/2017 8:04 PM EDT) [facility] Sodium 142 136 - 145 mmol/L 07/11/2017 8:24 PM EDT [facility] Potassium 3.9 3.5 - 5.0 mmol/L 07/11/2017 8:24 PM EDT [facility] Chloride 102 98 - 107 mmol/L 07/11/2017 8:24 PM [facility] Total CO2 27 22 - 29 mmol/L 07/11/2017 8:24 PM [facility] Anion Gap 13 7 - 16 mmol/L 07/11/2017 8:24 PM [facility] Calcium 9.1 8.8 - 10.2 mg/dL 07/11/2017 8:24 PM [facility] Glucose Lvl 123(H) 82 - 100 mg/dL 07/11/2017 8:24 PM [facility] BUN 8 8 - 23 mg/dL 07/11/2017 8:24 PM [facility] Creatinine 1.04 0.51 - 1.30 mg/dL 07/11/2017 8:24 PM [facility] GFR Afr Am 65 mL/min/1.7 3 m2 07/11/2017 8:24 PM [facility] GFR Non Afr Am 57 mL/min/1.7 3 m2 07/11/2017 8:24 PM [facility] Comment: GFR Afr Am and [...] VENOUS BLOOD / Unknown Venipuncture / Unknown 07/11/2017 8:04 PM EDT 07/11/2017 8:06 PM EDT us Nasir Yanez MD CHEMISTRY ORDERABLES Final Resu lt [facility] [address] [place] [address] * CBC WITH DIFF (07/11/2017 8:04 PM EDT) WBC 10.2 4.0 - 11.0 x10(3)/mcL 07/11/2017 8:10 PM EDT [facility] RBC 4.40 3.80 - 5.10 x10(6)/mcL 07/11/2017 8:10 PM EDT [facility] Hgb 13.1 12.0 - 15.6 gm/dL 07/11/2017 8:10 PM EDT [facility] Hct 38.9 35.7 - 45.9 % 07/11/2017 8:10 PM EDT [facility] MCV 88.4 82.5 - 99.8 fL 07/11/2017 8:10 PM EDT [facility] MCH 29.8 27.0 - 34.3 pg 07/11/2017 8:10 PM EDT [facility] MCHC 33.7 32.1 - 35.3 gm/dL 07/11/2017 8:10 PM EDT [facility] RDW 14.1 11.5 - 15.0 % 07/11/2017 8:10 PM EDT [facility] Platelet 207 144 - 423 x10(3)/mcL 07/11/2017 8:10 PM EDT [facility] MPV 9.4 6.8 - 10.8 fL 07/11/2017 8:10 PM EDT [facility] Neut Percent 66.1 % 07/11/2017 8:10 PM EDT [facility] Lymph Percent 23.3 % 07/11/2017 8:10 PM EDT [facility] [place] Percent 7.1 % 07/11/2017 8:10 PM EDT [facility] Eos Percent 2.2 % 07/11/2017 8:10 PM EDT [facility] Baso Percent 1.3 % 07/11/2017 8:10 PM EDT [facility] Neut # 6.7 1.8 - 7.7 x10(3)/[facility] 07/11/2017 8:10 PM EDT [facility] Lymph # 2.4 0.6 - 4.8 x10(3)/[facility] 07/11/2017 8:10 PM EDT [facility] [place] # 0.7 0.0 - 1.3 x10(3)/[facility] 07/11/2017 8:10 PM EDT [facility] Eos# 0.2 0.0 - 0.5 x10(3)/[facility] 07/11/2017 8:10 PM EDT [facility] Baso # 0.1 0.0 - 0.2 x10(3)/[facility] 07/11/2017 8:10 PM EDT [facility] Blood VENOUS BLOOD / Unknown Venipuncture / Unknown 07/11/2017 8:04 PM EDT 07/11/2017 8:06 PM EDT us Nasir Yanez MD HEMATOLOGY ORDERABLES Final Res ult [facility] [address] [facility] [place] [address] * (ABNORMAL) GLUCOSE METER POC (07/11/2017 7:44 PM EDT) [facility] Glucose Meter POC 140(H) 70 - 100 mg/dL 07/11/2017 7:47 PM EDT [facility] Sample Type Capillary 07/11/2017 7:47 PM EDT [facility] Patient Status Non-Critical Patient 07/11/2017 7:47 PM EDT [facility] Blood BLOOD SPECIMEN / Unknown 07/11/2017 7:44 PM EDT 07/11/2017 7:47 PM EDT us Lab Test POINT OF CARE TEST ORDERABLES Fi nal Result [facility] [address] [place] [address] documented in this encounter Visit Diagnoses Diagnosis Nonintractable headache, unspecified chronicity pattern, unspecified headache type- Primary documented in this encounter Administered Medications Inactive Administered Medications - up to 1 most recent administrations Medication Order MAR Action Action Date Dose Rate Site acetaminophen (TYLENOL) tablet 650 mg 650 mg, Oral, ONCE, 1 dose, On Wed07/11/17 at 2015, Maximum adult dose of acetaminophen is 4000 mg from all sources in 24 hours. Given 07/11/2017 8:07 PM EDT 650 mg ketorolac (TORADOL) injection 15 mg 15 mg, Intramuscular, ONCE, 1 dose, On Wed07/11/17 at 2145 Given 07/11/2017 9:40 PM EDT 15 mg Right Arm sodium chloride 0.9% IV line flush 50 mL 50 mL, Intravenous, at 150-600 mL/hr, PRN, Starting on Wed07/11/17 at 2002, Until Wed07/12/17 at 021, Line Care, Flush with a minimum of 20 mL after IVPB to insure complete administration of the dose. May use the saline infusion to back flush IVPB tubing as needed., Use this order to document priming and flushing IV line after medication administration. sodium chloride 0.9% syringe 5 mL 5 mL, Intravenous, PRN, Starting on Wed07/11/17 at 2002, Until Wed07/12/17 at 021, Line Care, Flush with 5 mL saline pre/post IVP, and 5 mL prior to IVPB or blood product administration. Protocol for PERIPHERAL IV saline lock maintenance, flush with 3-5 mL saline syringe every 8 hours., Flush every shift or after IV medication documented in this encounter Active and Recently Administered Medications Times are shown in EDT. Scheduled Medication Order 07/09/2017 07/10/2017 07/11/2017 acetaminophen (TYLENOL) tablet 650 mg (COMPLETED) 650 mg, Oral, ONCE, 1 dose, On 07/11/17 at 2015, Maximum adult dose of acetaminophen is 4000 mg from all sources in 24 hours. 2006 (Given - Provid er: Caitlin Solomon, RN) ketorolac (TORADOL) injection 15 mg (COMPLETED) 15 mg, Intramuscular, ONCE, 1 dose, On 07/11/17 at 2145 2140 (Given - Provid er: Caitlin Solomon RN) PRN Medication Order 07/09/2017 07/10/2017 07/11/2017 sodium chloride 0.9% IV line flush 50 mL 50 mL, Intravenous, at 150-600 mL/hr, PRN, Starting on 07/11/17 at 2002, Until 07/12/17 at 021, Line Care, Flush with a minimum of 20 mL after IVPB to insure complete administration of the dose. May use the saline infusion to back flush IVPB tubing as needed., Use this order to document priming and flushing IV line after medication administration. sodium chloride 0.9% syringe 5 mL 5 mL, Intravenous, PRN, Starting on 07/11/17 at 2002, Until 07/12/17 at 0217, Line Care, Flush with 5 mL saline [...] 0.9% IV line flush 50 mL 1 07/11/2017 sodium chloride 0.9% syringe 5 mL 1 018 Nursing Count Last Ordered Date First Orde red Date BLOOD GLUCOSE 1 07/11/2017 documented in this encounter Additional Health Concerns Assessment Noted Time A fall risk assessment has been complete d for the patient 04/21/2017 10:52 AM EST documented as of this encounter Care Teams Hydrochloric Area Supervisor Relationship Specialty Start Date End Date Sharee Segovia APRN [address] [place], [place] [address] PCP - General Nurse Practitioner-Family 09/21/16 documented as of this encounter
--- OUTSIDE RECORDS SUMMARY | 2024-02-16 14:55 | XMS_ITS | Encounter Summary ---
Author Organization [place] [address] Care Team Providers Care Equipment Hire Manager Name Role Phone Sharee Segovia APRN Primary Care Provider [phone] Reason for Visit * Reason Comments Medication Refill Encounter Details Date Type Department Care Team (Late st Contact Info) Description 05/26/2017 Refill [facility] [address] [place] [address] Joanna Hitchcock MD Medication Refill Social [...] BY MOUTH EVERY 12 HOURS 60 Tab 05/26/2017 06/28/2017 documented in this encounter Plan of Treatment [...] TABLET BY MOUTH EVERY 12 HOURS Reorder 05/07/2017 05/26/2017 documented as of this encounter Additional Health Concerns Assessment Noted Time A fall risk assessment has been complete d for the patient 04/21/2017 10:52 AM EST documented as of this encounter Care Teams Equipment Hire Manager Relationship Specialty Start Date End Date Sharee Segovia APRN [address] [place] [address] PCP - General Nurse Practitioner-Family 09/21/16 documented as of this encounter
--- OUTSIDE RECORDS SUMMARY | 2024-02-16 14:55 | XMS_ITS | Encounter Summary ---
Author Organization [place] [address] Care Team Providers Care Health Care / Medical Job Titles Name Role Phone Sharee Segovia APRN Primary Care Provider [phone] Reason for Visit * Reason Onset Date Comments Care Management - Chart Review 07/23/2017 Encounter Details Date Type Department Care Team (Late st Contact Info) Description 07/23/2017 Patient Outreach [facility] [address] [place] [address] Jesica Humphrey RN Care Management - Chart Review Social [...] as of this encounter Progress Notes * Jesica Francisco RN - 07/23/2017 2:46 PM EDT Chart reviewed after recent ED visit for chest pain. Patient is not a candidate for CTT/HCA to follow at this time. MD level 1. documented in this encounter Miscellaneous Notes * Telephone Encounter - Deena Schmidt CCMA - 07/23/2017 3:06 PM EDT LMTRC documented in this encounter Plan of [...] documented as of this encounter Care Teams Health Care / Medical Job Titles Relationship Specialty Start Date End Date Sharee Segovia APRN [address] [place], [place] [phone] PCP - General Nurse Practitioner-Family 09/21/16 documented as of this encounter
--- OUTSIDE RECORDS SUMMARY | 2024-02-16 14:56 | XMS_ITS | Encounter Summary ---
Author Organization [place] [address] Care Team Providers Care Waiter/Waitress Name Role Phone Sharee Segovia APRN Primary Care Provider [phone] Reason for Visit * Reason Comments Medication Refill Encounter Details Date Type Department Care Team (Late st Contact Info) Description 05/07/2017 Refill [facility] [address] [place] [address] Joanna Hitchcock MD Medication Refill Social [...] BY MOUTH EVERY 12 HOURS 60 Tab 05/07/2017 05/26/2017 documented in this encounter Plan of Treatment [...] TABLET BY MOUTH EVERY 12 HOURS Reorder 04/08/2017 05/07/2017 documented as of this encounter Additional Health Concerns Assessment Noted Time A fall risk assessment has been complete d for the patient 04/21/2017 10:52 AM EST documented as of this encounter Care Teams Waiter/Waitress Relationship Specialty Start Date End Date Sharee Segovia APRN [address] [place] [phone] PCP - General Nurse Practitioner-Family 09/21/16 documented as of this encounter
--- OUTSIDE RECORDS SUMMARY | 2024-02-16 14:56 | XMS_ITS | Encounter Summary ---
Author Organization [place] [address] Care Team Providers Care Service Delivery Manager Name Role Phone Sharee Segovia APRN Primary Care Provider [phone] Reason for Visit * Reason Onset Date Comments Care Management - Chart Review 04/14/2017 Encounter Details Date Type Department Care Team (Late st Contact Info) Description 04/14/2017 Patient Outreach [facility] [address] [place] [address] Jesica George, RN Care Management - Chart Review Social [...] of this encounter Progress Notes * Jesica George RN - 04/14/2017 7:35 AM EST Upon reviewing chart, patient is not a candidate for HCA/CTT at this time. MD score level one. documented in this encounter Plan of Treatment [...] Diagnoses Not on filedocumented in this encounter Care Teams Service Delivery Manager Relationship Specialty Start Date End Date Sharee Segovia APRN [address] [place] [address] PCP - General Nurse Practitioner-Family 09/21/16 documented as of this encounter
--- OUTSIDE RECORDS SUMMARY | 2024-02-16 14:56 | XMS_ITS | Encounter Summary ---
Author Organization [place] [address] Care Team Providers Care Emergency Medicine Specialist Name Role Phone Sharee Segovia BODY MAN Primary Care Provider [phone] Reason for Visit * Reason Onset Date Comments Orders 05/11/2017 Encounter Details Date Type Department Care Team (Late st Contact Info) Description 05/11/2017 Telephone [facility]P [facility] [address] [place] [address] Sharee Segovia APRN [address] [place], [place] [id number] Orders Social History Tobacco Use Types Packs/Day [...] on file documented as of this encounter Miscellaneous Notes * Telephone Encounter - Birdie Amor RMA - 05/11/2017 2:45 PM EST Needing them to refaxed papers over and Dr TOLLIVER will have to sign them. They have been advised. * Telephone Encounter - Deena Schmidt CCMA - 05/11/2017 9:52 AM EST Rosalie from [facility] calling stating that they received an order on the pt signed by Sharee but they cannot accept orders signed by [email or web address]. It needs to be signed by a physician. They are faxing it back. documented in this encounter Plan of [...] documented as of this encounter Care Teams Emergency Medicine Specialist Relationship Specialty Start Date End Date Sharee Segovia APRN [address] [place], [place] [phone] PCP - General Nurse Practitioner-Family 09/21/16 documented as of this encounter
--- OUTSIDE RECORDS SUMMARY | 2024-02-16 14:56 | XMS_ITS | Encounter Summary ---
Author Organization [place] [address] Care Team Providers Care Cardiac Nurse Name Role Phone Sharee Segovia APRN Primary Care Provider [phone] Reason for Visit * Reason Comments Psychiatric Evaluation PT [facility] ED [facility] [place] [place] WITH C/O SUICIDAL IDEATION. PT STATES SHE HAS BEEN DEPRESSED FOR A FEW MONTHS, BUT ABIELL CAME UP WITH A PLAN. STATES SHE WILL WAIT UNTIL DARK, PUT ON DARK CLOTHING AND THEN SIT ON THE TRAIN TRACKS CPTA; NONE * Auth/Cert/Inpt Specialty Diagnoses / Procedures Referred By Arsh patel Referred To Contact Diagnoses Depression with suicidal ideation Depression with suicidal ideation Depression with suicidal ideation Procedures Referral ID Status Reason Start Date Expiration Date Visits Re quested Visits Authorized [id number] 1 1 Encounter Details Date Type Department Care Team (Latest Contact Info) Description 05/02/2017 4:46 PM EST - 05/12/2017 1:35 PM EST Hospital Encounter EDG BH1 GERIATRIC PSY [facility] [address] Beni Gonzales MD [address] [place] [address] [place] [address] Eric Gavin MD [address] [place] [id number] Depression with suicidal ideation (Primary Dx) Discharge Disposition: Home or Self [...] Sign Reading Time Taken Comments Blood Pressure 133/57 05/12/2017 10:00 AM EST Pulse 51 05/12/2017 10:00 AM EST Temperature 36.9 ??C (98.4 ??F) 05/12/2017 10:[address] Respiratory Rate 20 05/12/2017 10:00 AM EST Oxygen Saturation 94% 05/12/2017 10:00 AM EST Inhaled Oxygen Concentration - - Weight 102.1 kg (225 lb) 05/02/2017 5:16 PM EST Height 174 cm (5' 8.5 ) 05/02/2017 5:16 PM EST Body Mass Index 33.71 05/02/2017 5:16 PM EST documented in this encounter Discharge Summaries * Eric Gavin MD - 05/12/2017 8:[address] [facility] Discharge Summary Patient Name: Faby Palm : 1950 Admit Date: 05/02/2017 Discharge Date: 05/12/2017 Admitting Physician: Eric Gavin MD Discharge Physician: Eric Gavin M.D. Reason for Hospitalization: History of Present Illness: Faby Palm is a(n)66 y.o. female being seen for suicidal thoughts/threats. ?? The patient stated that she wanted to kill herself by means of going to train tracks and waiting for a train to run over her. ?? I remember the patient from previous admission in February 2017, the patient at that time was admitted due to thoughts of suicide. ?? The patient stated about being depressed as reportedly she has a boyfriend who started dating another man. ?? The patient has a history of mood disorder, in the past her diagnosis problems significant for schizoaffective disorder, as the patient has history of low- grade psychosis. Very often the patient states about having auditory hallucinations, the patient also has cognitive disability. ?? The patient in the past tried numerous medications including antidepressants, mood stabilizers and antipsychotics. Upon review of her medications the patient now is on 2 antipsychotics, the patient is not very reliable in the sense of history giving. I suspect that at times the patient reports auditory hallucinations for attention seeking behavior. ?? The patient right now would be observed on Behavioral Health Unit, the patient will have medicationadjusted, the patient would be participating in treatment. Upon resolution of suicidality the patient would be discharged to the long term. ?? The patient's psychiatric history goes back to many years ago, the patient was hospitalized in [place] twice, prior to coming to the local area. The patient's intellectual disability makes the treatment quite difficult. ? See Emergency Room Note: History provided by: ??Patient and medical records ?? 66 year old female presents to the ED by police for a psychiatric evaluation. History of diabetes mellitus, depression, and CA. Previous hospital admissions for depression with last on 04/10/17. Patient states she has been having thoughts of harming herself for several months. Reports suicide plan to dress in dark clothes and go sit in front of a train . Denies visual or auditory hallucinations, sudden weight loss, or any other associated symptoms. There was no care prior to arrival stated. ?? See Extension Work Instructor's Note: Pt is a 66 yr old female with a history of schizoaffective disorder, depressive type. ??She presents to the ED via police after telling staff at [facility] that she wanted to kill herself. ??She has a plan to wait until dark, wear dark clothing and sit on the train track until she's struck and killed. ??Pt reports that she feels depressed because her boyfriend of 2 years (also a resident) left her for another male resident. ??She says she's in love with someone she can't have andthis makes her want to kill herself. ??She reports that she's felt suicidal for months, but recently thought of this plan. ? Pt resides at [facility], says she's lived there 3 years next month. ??She reports that she hasn't seen or spoken to her children or any family since she moved there from [place]. ??Pt reports that she previously lived with her sister in [place]. ? Pt reports that she's had 3 prior admissions, most recently at [facility] in 2016 for SI. ??She reports that she was hospitalized at [facility] twice prior to moving here, both after suicide attempts. ??She reported that once she overdosed on her sister's medications. ??She reported that her sister had a lot of medical issues and was on morphine. ??Pt reports that her sister came home to find her. ??She reports that she also attempted suicide by cutting her wrist. ??Pt reports she sees a therapist at [facility] every two weeks, next appt is scheduled for this week. ? Pt is A&Ox3. ??She appears somewhat??cognitively delayed. ??She presents with euthymic mood andappropriate affect. ??She speaks very matter of factly about her plan for suicide. ??She reports that she does want to act on this plan. ??Patient denies HI/AVHs. ??She reports that she's taking her meds and that staff keep them for her. ??She reports a normal appetite. ??She reports difficulty sleeping all the time. ? Pt is unable to contract for safety. ??She reports that she does want to act on the plan to sit on the train track in dark clothing at night. ??She says it will take a little while to walk there because she knows not to take her walker because then someone would see her. ??Pt says there is a train track near where she lives. ?? Recommendation/Plan: admission to [facility] under Dr. Gavin Consulted: Dr. Gonzales Intake: [place] ?? 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 The patient denied auditory and visual hallucinations, the patient was kept on Zoloft 200 mg PO daily, Abilify 30 mg PO daily, the patient was taken off Risperidone, she was placed on Trazodone at night that was increased to 300 mg PO at bedtime. The patient still was voicing thoughts of suicide, the patient having had limited intellectual understanding of her situation, her intellectual disability was anobstacle in improvement. Gradually however the patient did better, the patient improved, the patient denied thoughts of suicide. The patient will be discharged home to the long term where she resides , with a follow-up by Jimbo Espinoza. The patient most likely has also borderline personality disorder, with attention seeking behavior. The patient was placed on Lamictal that was gradually increased to 25 mg PO twice a day for mood stabilization and impulse control. See Physician Notes: 05/05/2017: Subjective: I think I'm starting to feel better, I'm not sure about having thoughts of suicide today ?? The patient was seen for the follow-up regarding her depression thoughts of suicide. The patient was in her bed, the patient stated about being too early in the morning to be specific about the date.The patient stated that yesterday she had a better day, the patient stated about thoughts of suicide decreasing. The patient is quite limited in her approach. The patient denies auditory and visual hallucinations, the patient stated about being better emotionally The patient stated about feeling better, her thoughts of suicide are decreasing. The patient deniesauditory and visual hallucinations. In many ways the patient presentation is significant for attention seeking behavior, the patient has thoughts of suicide that probably could be the best managed bymeans of behavioral approach. The patient has limited understanding of her situation. Will continue management, will follow, will observe for suicidal ideations, the planned discharge may take place on Wednesday if the patient continues to do better. 05/06/2017: Subjective: I still have thoughts of suicide ?? The patient was seen for the follow-up. The patient still stated about having thoughts of suicide, the patient still reports depression and anxiety. The patient denies auditory and visual hallucinations, the patient does not look internally preoccupied. The patient still was talking about her boyfriend today. Her insight and judgment is very limited, the patient also most likely has borderline personality disorder in addition to her mood disorder. The patient is not very insightful in terms of her stress management abilities. Will continue hospitalization as the least restrictive means for providing care. The patient was seen for the follow-up. The patient was alert, oriented to person and place, the patient still reported depression and anxiety. The patient still stated that she had thoughts of suicide. Her insight and judgment is very much impaired, the patient has also most likely borderline personality disorder. Will add Lamictal 25 mg PO daily, will follow, will observe for suicidal thoughts. ??05/07/2017: Subjective: I still have thoughts of suicide, I don't hear any voices ?? The patient still reports thoughts of suicide, the patient stated that she is not much better. However the patient stated about not having auditory hallucinations, the patient still reports some insomnia. Patient does not look internally preoccupied, in many ways her depression is attention seeking behavior. I think that the patient shows borderline tendencies in addition to her diagnosis of schizoaffective and bipolar disorder. Will increase Lamictal, will increase Trazodone at night, will follow, if the patient is better over the weekend she may be discharged early next week. ??Will continue hospitalization as the least restrictive means for providing care. The patient still has attention seeking behavior, the patient still reports depression, thoughts ofsuicide. The patient denies auditory and visual hallucinations. Will continue management, will increase Lamictal and Trazodone , will follow. The patient may be discharged after the weekend if she has good the next few days. ??05/09/2017: Subjective: I feel better ?? The patient still up and Ativan last night for restlessness, the patient stated about not having thoughts of suicide while in the hospital but she may be having thoughts of suicide after she is discharged. The patient clearly shows personality disorder, the patient probably uses statements of suicide as attention seeking behavior. The patient denies auditory and visual hallucinations, the patient does not look internally preoccupied. Gradual improvement is noted. Will continue hospitalization as the least restrictive means for providing care. The patient stated that about not having thoughts of suicide, but the patient stated about being possibly suicidal when she is discharged. The patient denies auditory and visual hallucinations, over the patient is compliant and cooperative. Will continue management, will follow, will observe for gradual resolution for suicidality. I anticipate discharge in the next couple of days. 05/10/2017: Subjective: I still have thoughts of suicide ?? The patient still had poor sleep last night, the patient obtained Ativan last night. The patient still reported depressed mood, the patient stated about having thoughts of suicide. The patient deniesauditory and visual hallucinations. The patient has very poor insight and judgment, we talked about the disposition, I indicated to the patient that she had to refrain from suicidal attempts when shegoes home. Will continue hospitalization as the least restrictive means for providing care. She still reported depressed mood, the patient still was voicing suicidal thoughts. The patient hasvery poor insight and judgment into her condition. Will continue management, we will increase Trazodone at night, will follow. I indicated to the patient that the patient may have periodic thoughts of suicide, but she has to refrain from any actions. The patient's ability to understand her situation is quite limited. Will follow. ??05/11/2017: Subjective: I think I will be ready to go home tomorrow ?? The patient stated about feeling better, the patient still stated about having transient thoughts of suicide. The patient reportedly denied thoughts of suicide yesterday to the nurses. We talked about the disposition, the patient stated that she would be ready to go home tomorrow. The patient will go back to the long term, the patient is not focused as much on her interpersonalrelationship problems. The patient has limited understanding of her situation. The patient slept better last night. Will continue current management, will follow. The patient denies any hallucinations. ??The patient was seen for the follow-up today. The patient stated about feeling better, the patient still stated about having some depression, but the patient denied thoughts of suicide. The patientdenies auditory and visual hallucinations. We talked about her disposition, the patient stated about feeling better, about being ready to be discharged tomorrow. Will continue management, will follow, the patient has limited understanding of her condition due to her intellectual disability Procedures Performed: Evaluation, management, medical follow up Consults: Treatment Team: Consulting Physician: Marcio Acosta, DO Discharge Exam: The patient was alert, oriented to person, place and time. Mood is moderately dysphoric, affect is constricted. The patient's speech is concrete, the patient doesn't have loosening associations, flights of ideas, thought blocking. The patient denies auditory or visual hallucinations. The patient doesn't seem to be paranoid. The patient denies suicidal and homicidal ideations, the patient stated about feeling safe to go home. Insight and judgment is very much impaired. Discharge Diagnoses: Schizoaffective disorder, depressive type ([facility]) Provisional Diagnosis: [place] I:Schizoaffective disorder, depressive type??diagnosis provisional [place] II: intellectual ??disability, mild Borderline personality disorder [place] III: ??see PMH/PSH ? [place] IV: severe [place] V: 20 Condition at Discharge: stable Disposition: Home Discharge Medications:: Medication List START taking these medications hydrOXYzine 25 mg Cap Dose: 25 mg Qty: 60 Cap Refills: 0 Commonly known as: VISTARIL 25 mg, Oral, EVERY 6 HOURS PRN lamoTRIgine 25 mg Tab Dose: 25 mg Qty: 60 Tab Refills: 0 Commonly known as: LaMICtal 25 mg, Oral, 2 TIMES DAILY * miconazole 2 % Powd Qty: 30 g Refills: 0 Commonly known as: MICATIN Topical, 2 TIMES DAILY * miconazole 2 % Powd Qty: 30 g Refills: 0 Commonly known as: MICATIN Topical, PRN Saccharomyces boulardii 250 mg Cap Dose: 250 mg Qty: 60 Cap Refills: 0 Commonly known as: FLORASTOR 250 mg, Oral, 2 TIMES DAILY traZODone 300 mg Tab Dose: 300 mg Qty: 30 Tab Refills: 0 Commonly known as: DESYREL 300 mg, Oral, NIGHTLY * This list has 2 medication(s) that are the same as other medications prescribed for you. Read thedirections carefully, and ask your doctor or other care provider to review them with you. CHANGE how you take these medications fUROsemide 20 mg Tab Dose: 20 mg Qty: 30 Tab Refills: 0 Commonly known as: LASix 20 mg, Oral, DAILY What changed: ?? medication strength ?? how much to take CONTINUE taking these medications acetaminophen 325 mg Tab Dose: 650 mg Refills: 0 Commonly known as: TYLENOL ARIPiprazole 30 mg Tab Dose: 30 mg Qty: 30 Tab Refills: 0 Commonly known as: ABILIFY 30 mg, Oral, DAILY aspirin 81 mg Chew Dose: 81 mg Qty: 60 Tab Refills: 0 81 mg, Oral, DAILY atorvastatin 20 mg Tab Qty: 30 Tab Refills: 1 Commonly known as: LIPITOR TAKE ONE TABLET BY MOUTH NIGHTLY ferrous sulfate 325 mg (65 mg iron) Tab Dose: 325 mg Qty: 60 Tab Refills: 5 325 mg, Oral, 2 TIMES DAILY WITH MEALS glipiZIDE 10 mg Tab Dose: 10 mg Refills: 0 Commonly known as: GLUCOTROL insulin glargine 100 unit/mL Soln Dose: 28 Units Qty: 10 mL Refills: 12 Commonly known as: LANTUS 28 Units, Subcutaneous, EVERY EVENING (INSULIN) isosorbide mononitrate 60 mg Tb24 Qty: 30 Tab Refills: 1 Commonly known as: IMDUR TAKE ONE TABLET BY MOUTH ONCE DAILY lisinopril 5 mg Tab Dose: 5 mg Refills: 0 Commonly known as: PRINIVIL;ZESTril metoprolol 50 mg Tab Qty: 60 Tab Refills: 2 Commonly known as: LOPRESSOR TAKE 1 TABLET BY MOUTH 2 TIMES DAILY nitroGLYCERIN 0.4 mg Subl Dose: 0.4 mg Qty: 20 Tab Refills: 2 Commonly known as: NITROSTAT 0.4 mg, Sublingual, EVERY 5 MIN PRN pantoprazole 40 mg Tbec Qty: 30 Tab Refills: 6 Commonly known as: PROTONIX TAKE ONE TABLET BY MOUTH ONCE DAILY RANEXA 1,000 mg Tb12 Qty: 60 Tab Refills: 0 Generic drug: Ranolazine TAKE ONE TABLET BY MOUTH EVERY 12 HOURS sertraline 100 mg Tab Dose: 200 mg Refills: 0 Commonly known as: ZOLOFT STOP taking these medications insulin syringe,safetyneedle 1 mL 30 gauge x 5/16 Syrg metFORMIN 500 mg Tab Commonly known as: GLUCOPHAGE NIFEdipine 90 mg Tr24 Commonly known as: PROCARDIA XL risperiDONE 2 mg Tab Commonly known as: RisperDAL Where to Get Your Medications These medications were sent to [id number] [place] [address] - [address] [facility] -[phone] [address] [facility] [address] ?? fUROsemide 20 mg Tab ?? hydrOXYzine 25 mg Cap ?? lamoTRIgine 25 mg Tab ?? miconazole 2 % Powd ?? miconazole 2 % Powd ?? RANEXA 1,000 mg Tb12 ?? Saccharomyces boulardii 250 mg Cap ?? traZODone 300 mg Tab Follow Up: Sharee Segovia ARNP [address] [place] [address] Signed: Eric Gavin MD DT>30 min 05/12/2017 8:45 AM documented in this encounter Discharge Instructions * Discharge Instructions* Macho Mcclure RN - 05/12/2017 10:42 AM EST Other Instructions Admission Diagnosis: Depression with suicidal ideation [F32.9, R45.851] Discharge Diagnosis: Schizoaffective disorder, depressive type (HCC) Advanced Directives: Information Provided on Healthcare Directives: No Information Refused on Healthcare Directives: Yes Major procedures and tests including summary of results:None Labs pending: List: None [facility] Primary care doctor and phone number: Sharee Segovia ARNP [phone] [facility] Behavioral Health Unit: [phone] Pain Assessment Location: None Type: (Instructed) Current pain management regimen (Instructed) IF PAIN INTENSIFIES OR PAIN IS UNRELIEVED WITH MEDICATIONS ORDERED, CALL YOUR DOCTOR Individual Instructions/Custom Documents/Teaching Sheets Use this area to list any individualized instructions, appointments, continued therapies, etc that the patient/family is to continue after discharge. If additional space is needed, use Additional Instructions. SUICIDE PREVENTION If you or someone you know is feeling sad, hopeless, or suicidal you are not alone. Seek help as soon as possible by contacting your own private mental health professional, come to a [facility] room or call the National Suicide Prevention Lifeline. The National Suicide Prevention Lifeline is a free and confidential service for anyone seeking help when they feel like there is nowhere to turn. 9-486-427-TJXX (2106) can be dialed toll-free from anywhere in the [place] 24 hours a day, 7 days a week. Suicide Warning Signs Call the National Suicide Prevention Lifeline at 7-235-460-TALK if you or someone you know exhibitsthe following suicide warning signs: ?? Threatening to hurt or kill oneself by talking about wanting to hurt or kill oneself ?? Looking for ways to kill oneself by seeking access to firearms, available pills or other means ?? Talking or writing about , dying, or suicide when these actions are out of the ordinary forthe person ?? Feeling hopeless ?? Feeling rage or uncontrolled anger or seeking revenge ?? Acting recklessly or engaging in risky activities-seemingly without thinking ?? Feeling trapped-like there's no way out ?? Increasing alcohol or drug use ?? Withdrawing from friends family and society ?? Feeling anxious or agitated, being unable to sleep, or sleeping all the time ?? Experiencing dramatic mood changes ?? Seeing no reason for living or having no sense of purpose in life Educational Material Given: Additional Instructions: documented in this encounter Medications at Time [...] ONCE DAILY 30 Tab 1 03/24/2017 9 miconazole (MICATIN) 2 % Top Powder Apply topically 2 times daily for 68 doses. 30 g 05/12/2017 8 miconazole (MICATIN) 2 % Top Powder Apply topically as needed for up to 33 days. 30 g 05/12/2017 8 nitroGLYCERIN (NITROSTAT) 0.4 mg SL Tablet, SublingualIndicat ions:Angina pectoris (HCC) Place 1 Tab under the tongue every 5 minutes as needed for Chest pain. 20 Tab 2 11/19/2016 9 Saccharomyces boulardii (FLORASTOR) 250 mg Oral Capsule Take 1 Cap by mouth 2 times daily. 60 Cap 05/12/2017 8 documented as of this encounter Ordered Prescriptions Prescription Sig Dispense Quantity Refills Last Filled Start Date End Date traZODone (DESYREL) 300 mg Oral Tablet Take 1 Tab by mouth nightly. 30 Tab 05/12/2017 8 Saccharomyces boulardii (FLORASTOR) 250 mg Oral Capsule Take 1 Cap by mouth 2 times daily. 60 Cap 05/12/2017 8 miconazole (MICATIN) 2 % Top Powder Apply topically as needed for up to 33 days. 30 g 05/12/2017 8 miconazole (MICATIN) 2 % Top Powder Apply topically 2 times daily for 68 doses. 30 g 05/12/2017 8 lamoTRIgine (LAMICTAL) 25 mg Oral Tablet Take 1 Tab by mouth 2 times daily. 60 Tab 05/12/2017 9 hydrOXYzine (VISTARIL) 25 mg Oral Capsule Take 1 Cap by mouth every 6 hours as needed. 60 Cap 05/12/2017 8 fUROsemide (LASIX) 20 mg Oral Tablet Take 1 Tab by mouth daily. 30 Tab 05/12/2017 8 documented in this encounter Discharge Disposition Disposition Code Departure Means Destination Home or Self [facility] documented in this encounter Progress Notes * Macho Mcclure, ROLF - 05/12/2017 1:24 PM EST Status P-Patient on discharge. She has been up in the day room for most of the am her behavior is calm andcooperative. She c/o depression 11/15 but denies suicidal or homicidal ideation * Valerie Wayne LCSW - 05/12/2017 11:50 AM EST 05/12/17 1143 Final Note Actual Discharge Plan 05/12 SW: Pt returning to [facility]. Spoke w/ Rbea (facility nurse) yesterday whoverified pt return. Called Medicaid cab. Transport arranged. Nurse notified. Confirmation # [id number]. Reported that it could be 4-5 hours before arrival. * Ernie Baez, Recreational Therapist - 05/12/2017 11:30 AM EST Problem #1 INTERVENTION Time of intervention: 1020 - 1115 Exercise Discussion METHODS Instruction Conversation Discussion Simple seated exercises interspersed with discussion and silly jokes. Encouraging group tolerance, social appropriateness, exercise, and fall prevention awareness. MOOD/AFFECT Appropriate Brightened with process Calm COGNITION Appropriate Oriented Good concentration Alert PARTICIPATION Tolerated staying for the entire group without negative or disruptive behavioral issues Interested Attentive Active Cooperative Followed instructions well Was escorted from group to get ready for her d/c - returned to group. * Valerie Wayne LCSW - 05/12/2017 11:07 AM EST 05/12/17 1050 Final Note Discharge to (long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 Poor Abnormal Involuntary Movement: Absent Assessment: Provisional Diagnosis: [place] I:Schizoaffective disorder, depressive type??diagnosis provisional [place] II: intellectual ??disability, mild Borderline personality disorder [place] III: ??see PMH/PSH ? [place] IV: severe [place] V: 20 Active Hospital Problems Diagnosis ??? *Schizoaffective disorder, depressive type ([facility]) Priority: High ??? Diarrhea ??? Acute lower UTI ??? Morbid obesity with BMI of 45.0-49.9, adult ([facility]) ??? Metabolic encephalopathy ??? Depression with suicidal ideation ??? Intellectual disability ??? 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 (HCC) ??? Mood disorder (HCC) ??? Chronic diastolic CHF (congestive heart failure) (HCC) ??? Hemiparesis affecting left side as late effect of stroke (HCC) ??? Essential hypertension Plan: Will continue hospitalization as the least restrictive means for providing care. She still reported depressed mood, the patient still was voicing suicidal thoughts. The patient hasvery poor insight and judgment into her condition. Will continue management, we will increase Trazodone at night, will follow. I indicated to the patient that the patient may have periodic thoughts of suicide, but she has to refrain from any actions. The patient's ability to understand her situation is quite limited. Will follow. Eric Gavin MD * Marcio Acosta DO - 05/10/2017 7:46 AM EST Patient: Faby Palm Sex: female Date of : 1950 Age: 66 y.o. Unit: [place] [address] Attending Physician: Eric Gavin MD Consulting Physician: Marcio Acosta DO Subjective: H/o bipolar/schizoaffective d/o, depression, htn, hld, diabetic, h/o CAD/CA/chronic angina(ranolazine), h/o morbid obesity, COPD, CVA w/ residual L. Hemiparesis. ?? Slept 7 + hrs Calm and cooperative. Repeat ua 05/09 looks neg. On Diflucan for groin dermatitis. - Tolerating med. No se/rxn. C.diff neg. ??05/03 Anti-fungal powder not effective for groin rash No fever. ?? No n/v Took lorazepam last night Intake 30%. ??Good fluid intake +BM 05/08. No other c/o ? ua w/ 96 WBC, +LE/nitrites. ??Will start abx. Empirically Creat 1.44 (baseline around 1.09 12/2016) BUN 20 Calcium 8.6 H/H 11.4/33.3 Current Facility-Administered Medications Medication Dose Route Frequency Last Rate Last Dose ??? acetaminophen (TYLENOL) tablet 650 mg 650 mg Oral Q4H PRN 650 mg at 05/08/17 1047 ? ? aluminum & magnesium hydroxide-simethicone 200-200-20 mg/5 mL suspension 30 mL 30 mL Oral Q2H PRN ??? ARIPiprazole (ABILIFY) tablet 30 mg 30 mg Oral Daily 30 mg at 05/09/17851 ??? aspirin chewable tablet 81 mg 81 mg Oral Daily 81 mg at 05/09/17851 ??? atorvastatin (LIPITOR) tablet 20 mg 20 mg Oral Nightly 20 mg at 05/09/172033 ??? dextrose 50 % solution 25 mL 25 mL Intravenous PRN ??? ferrous sulfate tablet 325 mg 325 mg Oral BID WM 325 mg at 05/09/171710 ??? fluconazole (DIFLUCAN) tablet 150 mg 150 mg Oral Daily 150 mg at 05/09/17 08 ??? fUROsemide (LASix) tablet 20 mg 20 mg Oral Daily 20 mg at 05/09/17845 ??? glipiZIDE (GLUCOTROL) tablet 10 mg 10 mg Oral BID WM 10 mg at 05/09/171710 ??? glucagon (human recombinant) (GLUCAGEN) injection 1 mg 1 mg Intramuscular PRN ??? insulin aspart U-100 (NovoLOG) injection 1-5 Units 1-5 Units Subcutaneous QID WM 1 Units at 05/06/172049 ??? insulin glargine (LANTUS) injection 28 Units 28 Units Subcutaneous QPM (Insulin) 28 Units at 05/09/172037 ??? isosorbide mononitrate (IMDUR) CR tablet 60 mg 60 mg Oral Daily 60 mg at 05/09/17845 ??? lamoTRIgine (LaMICtal) tablet 25 mg 25 mg Oral BID 25 mg at 05/09/172033 ??? lisinopril (PRINIVIL;ZESTril) tablet 5 mg 5 mg Oral Daily 5 mg at 05/09/17851 ??? loperamide (IMODIUM) capsule 2 mg 2 mg Oral QID PRN 2 mg at 05/04/172056 ??? LORazepam (ATIVAN) tablet 0.5 mg 0.5 mg Oral Q4H PRN 0.5 mg at 05/09/172226 Or ??? LORazepam (ATIVAN) injection 0.5 mg 0.5 mg Intramuscular Q4H PRN ??? magnesium hydroxide (MILK OF MAGNESIA) 400 mg/5 mL suspension 30 mL 30 mL Oral Q6H PRN ??? metoprolol (LOPRESSOR) tablet 50 mg 50 mg Oral BID 50 mg at 05/09/172033 ??? miconazole (MICATIN) 2 % powder Topical BID And ??? miconazole (MICATIN) 2 % powder Topical PRN ??? nitroGLYCERIN (NITROSTAT) SL tablet 0.4 mg 0.4 mg Sublingual Q5 Min PRN ??? ondansetron (ZOFRAN) tablet 4 mg 4 mg Oral Q4H PRN 4 mg at 05/05/17 1742 Or ??? ondansetron (ZOFRAN) injection 4 mg 4 mg Intramuscular Q4H PRN ??? pantoprazole (PROTONIX) tablet 40 mg 40 mg Oral Daily 40 mg at 05/09/17 0852 ??? ranolazine (RANEXA) SR tablet 1,000 mg 1,000 mg Oral 2 times per day 1,000 mg at 05/09/172033 ??? Saccharomyces boulardii (FLORASTOR) capsule 250 mg 250 mg Oral BID 250 mg at 05/09/172033 ??? sertraline (ZOLOFT) tablet 200 mg 200 mg Oral Daily 200 mg at 05/09/17845 ??? traZODone (DESYREL) tablet 200 mg 200 mg Oral Nightly 200 mg at 05/09/172033 Objective: Blood pressure 117/62, pulse 54, temperature 97.7 ??F (36.5 ??C), temperature source Tympanic, resp. rate 17, height 5' 8.5 (1.74 m), weight 225 lb (102.1 kg), SpO2 95 %, not currently . Intake/Output Summary (Last 24 hours) at 05/10/17 0746 Last data filed at 05/09/17 1721 Gross per 24 hour Intake 960 ml Output 0 ml Net 960 ml ?? General: Faby appears alert, well developed, well nourished, in no acute distress, morbid obesity ?? Skin: warm, well perfused and no rashes ?? Head: Normocephalic, without obvious abnormality, atraumatic ?? Eyes: Pupils equal, round and reactive to light and Extraocular movements intact ?? ENT: ENT exam normal, mucous membranes moist ?? Neck: neck is supple and there is full active range of motion ?? Breast: not examined ?? Lungs: clear to auscultation bilaterally ?? Cardiac: heart tones regular ?? Abdomen: abdomen is soft, nontender, and nondistended without hepatosplenomegaly or masses, normoactive bowel sounds are present, there are no peritoneal signs ?? G-TUBE/PEG - NONE. ?? Back: symmetric, no curvature. ROM normal. No CVA tenderness. ?? : not examined ?? Lymphadenopathy: normal and no adenopathy noted ?? Musculoskeletal/Ext: L. Hemiparesis. ?? Neurological: normal without focal findings, FOUZIA, reflexes normal and symmetric, no tremors, cogwheeling or rigidity noted and Babinski response negative ?? CLAY CATHETER - NONE ?? Labs: Lab Results Component Value Date FSBS 119 (H) 05/09/2017 FSBS 135 (H) 05/09/2017 FSBS 134 (H) 05/09/2017 FSBS 78 05/09/2017 Lab Results Component Value Date WBC 8.6 05/03/2017 INR 1.09 11/10/2016 NA 144 05/03/2017 K 4.1 05/03/2017 CL 103 05/03/2017 CREATININE 1.44 (H) 05/03/2017 BUN 20 05/03/2017 GLU 133 (H) 05/03/2017 ALT 10 05/03/2017 AST 13 05/03/2017 TSH 2.900 05/03/2017 DDIMER 646 (H) 06/22/2016 RBC 3.70 (L) 05/03/2017 HCT 33.3 (L) 05/03/2017 HGB 11.4 (L) 05/03/2017 HDL 49 05/02/2017 FOLATE 10.15 05/03/2017 [id number] 382 05/03/2017 No results found for: PHENYTOIN, PHENOBARB, VALPROATE, CBMZ Impression/Plan: Acute lower UTI ?Urine cx. W/ E.coli 05/03. ?macrobid x 7 d ?05/04 - completed. Recheck ua c+s today 05/08. - looks neg. ?florastor. ?Enc. Po fluids ?Groin dermatitis ?Diflucan x 7 d 05/04 ?Diarrhea ?Resolved. ?D/t glucophage. ?D/c glucophage 05/05 ?d/c cholestyramine 3/1. ?C.diff ??Neg. ?Start florastor. 05/04 ?Essential hypertension ?Controlled ?Furosemide ?Lisinopril, metoprolol ?asa ?Monitor trends. ?type 2 diabetes mellitus with peripheral neuropathy (HCC) ?controlled ?Accucheck/ssi ?A1c - 6.8 ?Low carb diet ?Glucophage, glipizide, lantus ?monitor ?Morbid obesity with BMI of 45.0-49.9, adult (HCC) ?Elevate hob ?Oxygen continuous ?GINA risk ?Chronic diastolic CHF (congestive heart failure) (HCC) ?EF 65% ??04/12/2017 w/ mild RV dilation ?Decr. Furosemide. ??No edema ?Pt. Needs afterload reduction. ??Continue w/ lisinopril ?Hemiparesis affecting left side as late effect of stroke (HCC) ?acute on chronic Metabolic encephalopathy ?D/t htn, DM, morbid obesity, chronic diastolic CHF ?Depression with suicidal ideation ?Schizoaffective disorder, depressive type (HCC) ?Mood disorder (HCC) ?Management per psych. ?? Signed By: Marcio Acosta DO * Kylah Omer, ROLF - 05/09/2017 9:11 PM EST The Pt. Has been calm and cooperative. VSS. She slept a total of 7+ hours. Will cont. To jose. Overnight the Pt. Reported feeling anxiety. She requested Ativan. This was given at 2230. * Jacque Morfin Recreational Therapist - 05/09/2017 6:32 PM EST Problem # 1 Time of intervention: 0479-6246 Intervention Leisure Methods Beading and socialization. Mood/Affect Calm Cognition Alert Participation Pt made a bracelet with minimal assistance from RT. Pt interacted with peers appropriately. * Jacque Morfin Recreational Therapist - 05/09/2017 3:00 PM EST Problem # 1 Time of intervention: 9303-4586 Intervention Leisure Methods [address] and Socialization. Participation Pt declined. Resting in the dayroom. * Jeana Carreon LCSW - 05/09/2017 2:09 PM EST SW met with pt who is alert and oriented x4. She is pleasant and cooperative with interaction. Stated mood is good and her affect brightens with interaction. Pt talked with journalists and other writers and another pt about pets and living arrangements. She talked about her cat, living at the [facility], and her friend, [place]. Pt was appropriate in conversation and interaction with other patient. * Eric Gavin MD - 05/09/2017 11:19 AM EST Inpatient Psychiatry Progress Note Admit Date: 05/02/2017 LOS: 7 days Attending: Eric Gavin MD Subjective: I feel better The patient still up and Ativan last night for restlessness, the patient stated about not having thoughts of suicide while in the hospital but she may be having thoughts of suicide after she is discharged. The patient clearly shows personality disorder, the patient probably uses statements of suicide as attention seeking behavior. The patient denies auditory and visual hallucinations, the patient does not look internally preoccupied. Gradual improvement is noted. Objective: Patient Vitals for the past 24 hrs: BP Temp Temp src Pulse Resp SpO2 05/09/17 0839 147/68 98.1 ??F (36.7 ??C) Oral 59 16 - 05/08/17 1937 106/66 98.2 ??F (36.8 ??C) Oral 55 17 94 % 05/08/17 1835 117/64 - - 55 18 - 05/08/17 1826 - - - - - 96 % 05/08/17 1824 - - - - - 94 % Labs: Labs were reviewed Review of Systems: A comprehensive ROS was completed including: Constitutional, HEENT, Cardiovascular, Respiratory, GI, TRUPTI, Musculoskeletal, Integumentary, Neurological, Psychiatric, Endocrine, Hematology/Lymphatics. All were negative except for what was noted above in HPI. Scheduled Meds: ??? ARIPiprazole 30 mg Oral Daily ??? aspirin 81 mg Oral Daily ??? atorvastatin 20 mg Oral Nightly ??? ferrous sulfate 325 mg Oral BID WM ??? fluconazole 150 mg Oral Daily ??? fUROsemide 20 mg Oral Daily ??? glipiZIDE 10 mg Oral BID WM ??? insulin aspart U-100 1-5 Units Subcutaneous QID WM ??? insulin glargine 28 Units Subcutaneous QPM (Insulin) ??? isosorbide mononitrate 60 mg Oral Daily ??? lamoTRIgine 25 mg Oral BID ??? lisinopril 5 mg Oral Daily ??? metoprolol 50 mg Oral BID ??? miconazole Topical BID ??? pantoprazole 40 mg Oral Daily ??? ranolazine 1,000 mg Oral 2 times per day ??? Saccharomyces boulardii 250 mg Oral BID ??? sertraline 200 mg Oral Daily ??? traZODone 200 mg Oral Nightly Family History Problem Relation Age of Onset [...] on file Social History Narrative Lives at [facility] Has two children and two grandchildren. Is Past Medical History: Diagnosis Date ??? Atrial flutter (HCC) EPS, AFL Ablation on 12/31/[address] Tee ??? CHF (congestive heart failure) (HCC) ??? COPD (chronic obstructive pulmonary disease) (HCC) ??? DDD (degenerative disc disease) ??? Diabetes mellitus (HCC) ??? Hypertension ??? Intellectual disability 05/03/2017 ??? CA (myocardial infarction) ??? RLS (restless legs syndrome) ??? Schizoaffective disorder, depressive type (HCC) 02/19/2017 ??? Stroke (HCC) 2010 left side affected ??? Suicide attempt ??? Urinary incontinence ??? Yeast infection recurrent [...] AND BRUSHING; Surgeon: Be Brown MD; Location: [facility]; Service: Endoscopy Mental Status Exam: Estimated Reliability: Unreliable Appearance: Fair Dress: Appropriate Psychomotor Activity: Fidgety and Restless Attitude: Guarded and Evasive Responsiveness: Alert Speech: Slow Mood: Anxious Affect: Constricted Thought Process: Illogical Thought Content: No Disturbances Perception: No Disturbances Orientation: Person and Place Memory: Deficit Insight: Does not understand problem Judgement: Poor Abnormal Involuntary Movement: Absent Assessment: Provisional Diagnosis: [place] I:Schizoaffective disorder, depressive type??diagnosis provisional [place] II: intellectual ??disability, mild Borderline personality disorder [place] III: ??see PMH/PSH ? [place] IV: severe [place] V: 20 Active Hospital Problems Diagnosis ??? *Schizoaffective disorder, depressive type (HCC) Priority: High ??? Diarrhea ??? Acute lower UTI ??? Morbid obesity with BMI of 45.0-49.9, adult (HCC) ??? Metabolic encephalopathy ??? Depression with suicidal ideation ??? Intellectual disability ??? 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 (HCC) ??? Mood disorder (HCC) ??? Chronic diastolic CHF (congestive heart failure) (HCC) ??? Hemiparesis affecting left side as late effect of stroke (HCC) ??? Essential hypertension Plan: Will continue hospitalization as the least restrictive means for providing care. The patient stated that about not having thoughts of suicide, but the patient stated about being possibly suicidal when she is discharged. The patient denies auditory and visual hallucinations, over the patient is compliant and cooperative. Will continue management, will follow, will observe for gradual resolution for suicidality. I anticipate discharge in the next couple of days. Eric Gavin MD * Marcio Acosta DO - 05/09/2017 7:56 AM EST Patient: Faby Palm Sex: female Date of : 1950 Age: 66 y.o. Unit: [id number] Attending Physician: Eric Gavin MD Consulting Physician: Marcio Acosta DO Subjective: H/o bipolar/schizoaffective d/o, depression, htn, hld, diabetic, h/o CAD/CA/chronic angina(ranolazine), h/o morbid obesity, COPD, CVA w/ residual L. Hemiparesis. ?? Anxiety 12/15 and depression 11/15 per pt. Report. +/- SI On Diflucan for groin dermatitis. - Tolerating med. No se/rxn. C.diff neg. ??05/03 Anti-fungal powder not effective for groin rash No fever. ?? No n/v Took lorazepam last night Intake 100%. ??Good fluid intake +BM 3/. No other c/o ? ua w/ 96 WBC, +LE/nitrites. ??Will start abx. Empirically Creat 1.44 (baseline around .12/2016) BUN 20 Calcium 8.6 H/H 11.4/33.3 Current Facility-Administered Medications Medication Dose Route Frequency Last Rate Last Dose ??? acetaminophen (TYLENOL) tablet 650 mg 650 mg Oral Q4H PRN 650 mg at 05/08/17 1047 ? ? aluminum & magnesium hydroxide-simethicone 200-200-20 mg/5 mL suspension 30 mL 30 mL Oral Q2H PRN ??? ARIPiprazole (ABILIFY) tablet 30 mg 30 mg Oral Daily 30 mg at 05/08/17 0833 ??? aspirin chewable tablet 81 mg 81 mg Oral Daily 81 mg at 05/08/17 0835 ??? atorvastatin (LIPITOR) tablet 20 mg 20 mg Oral Nightly 20 mg at 05/08/172004 ??? dextrose 50 % solution 25 mL 25 mL Intravenous PRN ??? ferrous sulfate tablet 325 mg 325 mg Oral BID WM 325 mg at 05/08/17 1724 ??? fluconazole (DIFLUCAN) tablet 150 mg 150 mg Oral Daily 150 mg at 05/08/17 0834 ??? fUROsemide (LASix) tablet 20 mg 20 mg Oral Daily 20 mg at 05/08/17 0834 ??? glipiZIDE (GLUCOTROL) tablet 10 mg 10 mg Oral BID WM 10 mg at 05/08/17 1724 ??? glucagon (human recombinant) (GLUCAGEN) injection 1 mg 1 mg Intramuscular PRN ??? insulin aspart U-100 (NovoLOG) injection 1-5 Units 1-5 Units Subcutaneous QID WM 1 Units at 05/06/17 2050 ??? insulin glargine (LANTUS) injection 28 Units 28 Units Subcutaneous QPM (Insulin) 28 Units at 05/08/17 1855 ??? isosorbide mononitrate (IMDUR) CR tablet 60 mg 60 mg Oral Daily 60 mg at 05/08/17 0833 ??? lamoTRIgine (LaMICtal) tablet 25 mg 25 mg Oral BID 25 mg at 05/08/172004 ??? lisinopril (PRINIVIL;ZESTril) tablet 5 mg 5 mg Oral Daily 5 mg at 05/08/17 0833 ??? loperamide (IMODIUM) capsule 2 mg 2 mg Oral QID PRN 2 mg at 05/04/172056 ??? LORazepam (ATIVAN) tablet 0.5 mg 0.5 mg Oral Q4H PRN 0.5 mg at 05/09/17 0038 Or ??? LORazepam (ATIVAN) injection 0.5 mg 0.5 mg Intramuscular Q4H PRN ??? magnesium hydroxide (MILK OF MAGNESIA) 400 mg/5 mL suspension 30 mL 30 mL Oral Q6H PRN ??? metoprolol (LOPRESSOR) tablet 50 mg 50 mg Oral BID 50 mg at 05/08/17 0834 ??? miconazole (MICATIN) 2 % powder Topical BID And ??? miconazole (MICATIN) 2 % powder Topical PRN ??? nitroGLYCERIN (NITROSTAT) SL tablet 0.4 mg 0.4 mg Sublingual Q5 Min PRN ??? ondansetron (ZOFRAN) tablet 4 mg 4 mg Oral Q4H PRN 4 mg at 05/05/17 1742 Or ??? ondansetron (ZOFRAN) injection 4 mg 4 mg Intramuscular Q4H PRN ??? pantoprazole (PROTONIX) tablet 40 mg 40 mg Oral Daily 40 mg at 05/08/17 0834 ??? ranolazine (RANEXA) SR tablet 1,000 mg 1,000 mg Oral 2 times per day 1,000 mg at 05/08/172004 ??? Saccharomyces boulardii (FLORASTOR) capsule 250 mg 250 mg Oral BID 250 mg at 05/08/172005 ??? sertraline (ZOLOFT) tablet 200 mg 200 mg Oral Daily 200 mg at 05/08/17 0833 ??? traZODone (DESYREL) tablet 200 mg 200 mg Oral Nightly 200 mg at 05/08/172005 Objective: Blood pressure 106/66, pulse 55, temperature 98.2 ??F (36.8 ??C), temperature source Oral, resp. rate 17, height 5' 8.5 (1.74 m), weight 225 lb (102.1 kg), SpO2 94 %, not currently . Intake/Output Summary (Last 24 hours) at 05/09/17 2796 Last data filed at 05/08/17 1804 Gross per 24 hour Intake 768 ml Output 0 ml Net 768 ml ?? General: Faby appears alert, well developed, well nourished, in no acute distress, morbid obesity ?? Skin: warm, well perfused and no rashes ?? Head: Normocephalic, without obvious abnormality, atraumatic ?? Eyes: Pupils equal, round and reactive to light and Extraocular movements intact ?? ENT: ENT exam normal, mucous membranes moist ?? Neck: neck is supple and there is full active range of motion ?? Breast: not examined ?? Lungs: clear to auscultation bilaterally ?? Cardiac: heart tones regular ?? Abdomen: abdomen is soft, nontender, and nondistended without hepatosplenomegaly or masses, normoactive bowel sounds are present, there are no peritoneal signs ?? G-TUBE/PEG - NONE. ?? Back: symmetric, no curvature. ROM normal. No CVA tenderness. ?? : not examined ?? Lymphadenopathy: normal and no adenopathy noted ?? Musculoskeletal/Ext: normal muscle bulk with no contractures or deformities and no edema, c/c ortremors. ?? Neurological: normal without focal findings, FOUZIA, reflexes normal and symmetric, no tremors, cogwheeling or rigidity noted and Babinski response negative ?? CLAY CATHETER - NONE ?? Labs: Lab Results Component Value Date FSBS 134 (H) 05/08/2017 FSBS 166 (H) 05/08/2017 FSBS 73 05/08/2017 FSBS 108 (H) 05/07/2017 Lab Results Component Value Date WBC 8.6 05/03/2017 INR 1.09 11/10/2016 NA 144 05/03/2017 K 4.1 05/03/2017 CL 103 05/03/2017 CREATININE 1.44 (H) 05/03/2017 BUN 20 05/03/2017 GLU 133 (H) 05/03/2017 ALT 10 05/03/2017 AST 13 05/03/2017 TSH 2.900 05/03/2017 DDIMER 646 (H) 06/22/2016 RBC 3.70 (L) 05/03/2017 HCT 33.3 (L) 05/03/2017 HGB 11.4 (L) 05/03/2017 HDL 49 05/02/2017 FOLATE 10.15 05/03/2017 [id number] 382 05/03/2017 No results found for: PHENYTOIN, PHENOBARB, VALPROATE, CBMZ Impression/Plan: Acute lower UTI ?Urine cx. W/ E.coli 05/03. ?macrobid x 7 d ?05/04 - completed. Recheck ua c+s today 05/08. ?florastor. ?Enc. Po fluids ?Groin dermatitis ?Diflucan x 7 d 05/04 ?Diarrhea ?Resolved. ?D/t glucophage. ?D/c glucophage 05/05 ?d/c cholestyramine 05/06. ?C.diff ??Neg. ?Start florastor. 05/04 ?Essential hypertension ?Controlled ?Furosemide ?Lisinopril, metoprolol ?asa ?Monitor trends. ?type 2 diabetes mellitus with peripheral neuropathy (HCC) ?controlled ?Accucheck/ssi ?A1c - 6.8 ?Low carb diet ?Glucophage, glipizide, lantus ?monitor ?Morbid obesity with BMI of 45.0-49.9, adult (HCC) ?Elevate hob ?Oxygen continuous ?GINA risk ?Chronic diastolic CHF (congestive heart failure) (HCC) ?EF 65% ??04/12/2017 w/ mild RV dilation ?Decr. Furosemide. ??No edema ?Pt. Needs afterload reduction. ??Continue w/ lisinopril ?Hemiparesis affecting left side as late effect of stroke (HCC) ?acute on chronic Metabolic encephalopathy ?D/t htn, DM, morbid obesity, chronic diastolic CHF ?Depression with suicidal ideation ?Schizoaffective disorder, depressive type (HCC) ?Mood disorder (HCC) ?Management per psych. Signed By: Marcio Acosta DO * Joanna Schmidt RN - 05/09/2017 4:25 AM EST During assessment patient states that her anxiety is a 10/10 and Depression is 9/10, requesting PRNAtivan for anxiety symptoms. When asked if she was experiencing suicidal thoughts, she stated that she was but that they are improving. Patient states that she is anxious about getting out of here so that she can go visit [place] theve of [her] life and tell him how I feel. Patient does not have a plan for SI at this time * Joanna Schmidt RN - 05/09/2017 4:19 AM EST Patient slept well throughout evening. PRN Ativan administered for agitation at 2000 and 0045 and was found to be effective in reducing anxiety and aiding in sleep. VSS. No concerns at this time. * Joanna Schmidt RN - 05/08/2017 8:00 PM EST Patient oxygen saturations 94% on room air. PRN oxygen removed and placed in nurse station * Eric Gavin MD - 05/08/2017 6:48 PM EST Inpatient Psychiatry Progress Note Admit Date: 05/02/2017 LOS: 6 days Attending: Eric Gavin MD Subjective: I still have thoughts of suicide The patient was eating dinner in the afternoon, the patient was calm and cooperative. The patient stated about having thoughts of suicide, the patient denies auditory and visual hallucinations. The patient is fairly cooperative. The patient most likely reports thoughts of suicide as attention seeking behavior. The patient stated about being less depressed. Objective: Patient Vitals for the past 24 hrs: BP Temp Temp src Pulse Resp SpO2 05/08/17 1835 117/64 - - 55 18 - 05/08/17 1826 - - - - - 96 % 05/08/17 1824 - - - - - 94 % 05/08/17 0809 148/84 97.7 ??F (36.5 ??C) Oral 58 18 95 % 05/07/17 2111 126/69 97.7 ??F (36.5 ??C) Oral 62 16 92 % Labs: Labs were reviewed Review of Systems: A comprehensive ROS was completed including: Constitutional, HEENT, Cardiovascular, Respiratory, GI, TRUPTI, Musculoskeletal, Integumentary, Neurological, Psychiatric, Endocrine, Hematology/Lymphatics. All were negative except for what was noted above in HPI. Scheduled Meds: ??? ARIPiprazole 30 mg Oral Daily ??? aspirin 81 mg Oral Daily ??? atorvastatin 20 mg Oral Nightly ??? ferrous sulfate 325 mg Oral BID WM ??? fluconazole 150 mg Oral Daily ??? fUROsemide 20 mg Oral Daily ??? glipiZIDE 10 mg Oral BID WM ??? insulin aspart U-100 1-5 Units Subcutaneous QID WM ??? insulin glargine 28 Units Subcutaneous QPM (Insulin) ??? isosorbide mononitrate 60 mg Oral Daily ??? lamoTRIgine 25 mg Oral BID ??? lisinopril 5 mg Oral Daily ??? metoprolol 50 mg Oral BID ??? miconazole Topical BID ??? pantoprazole 40 mg Oral Daily ??? ranolazine 1,000 mg Oral 2 times per day ??? Saccharomyces boulardii 250 mg Oral BID ??? sertraline 200 mg Oral Daily ??? traZODone 200 mg Oral Nightly Family History Problem Relation Age of Onset [...] on file Social History Narrative Lives at [facility] Has two children and two grandchildren. Is Past Medical History: Diagnosis Date ??? Atrial flutter (HCC) EPS, AFL Ablation on 12/31/[address] Tee ??? CHF (congestive heart failure) (HCC) ??? COPD (chronic obstructive pulmonary disease) (HCC) ??? DDD (degenerative disc disease) ??? Diabetes mellitus (HCC) ??? Hypertension ??? Intellectual disability 05/03/2017 ??? CA (myocardial infarction) ??? RLS (restless legs syndrome) ??? Schizoaffective disorder, depressive type (HCC) 02/19/2017 ??? Stroke (HCC) 2010 left side affected ??? Suicide attempt ??? Urinary incontinence ??? Yeast infection recurrent [...] AND BRUSHING; Surgeon: Be Brown MD; Location: [facility]; Service: Endoscopy Mental Status Exam: Estimated Reliability: Unreliable Appearance: Fair Dress: Appropriate Psychomotor Activity: Psychomotor Retardation Attitude: Cooperative Responsiveness: Alert Speech: Slow and Soft Mood: Anxious Affect: Constricted Thought Process: Illogical Thought Content: No Disturbances Perception: No Disturbances Orientation: Person and Place Memory: Deficit Insight: Does not understand problem Judgement: Poor Abnormal Involuntary Movement: Absent Assessment: Provisional Diagnosis: [place] I:Schizoaffective disorder, depressive type??diagnosis provisional [place] II: intellectual ??disability, mild Borderline personality disorder [place] III: ??see PMH/PSH ? [place] IV: severe [place] V: 20 Active Hospital Problems Diagnosis ??? *Schizoaffective disorder, depressive type (HCC) Priority: High ??? Diarrhea ??? Acute lower UTI ??? Morbid obesity with BMI of 45.0-49.9, adult (HCC) ??? Metabolic encephalopathy ??? Depression with suicidal ideation ??? Intellectual disability ??? 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 (HCC) ??? Mood disorder (HCC) ??? Chronic diastolic CHF (congestive heart failure) (HCC) ??? Hemiparesis affecting left side as late effect of stroke (HCC) ??? Essential hypertension Plan: Will continue hospitalization as the least restrictive means for providing care. The patient still reports some depression, the patient still reports some thoughts of suicide. The patient however stated about being better. She was observed in the day room today eating dinner, thepatient is fairly cooperative. Will continue current medication management, I think we deal with personality disorder more than clinical depression. Will follow. Eric Gavin MD * Holly Anderson RN - 05/08/2017 6:29 PM EST Pt complain of SOB. O2sat 94 percent RA. Applied oxygen per order. O2sat 95-96 percent at 1L/minute. Denies chest pain or any discomfort. Pt in bed resting at this time. * Viktoriya Haro, Recreational Therapist - 05/08/2017 3:18 PM EST Time of intervention: 10:05-11:00 am Intervention Exercise Methods Listening to music, orientation, ball toss, exercises, trivia socializing Participation Pt. Did not participate ~~~~~~~~~~~~~~~~~~~~ Time of intervention: 14:15-15:45 pm Intervention Leisure Skills Methods Socializing Participation Pt. Did not participate. * Marcio Acosta DO - 05/08/2017 9:48 AM EST Patient: Faby Palm Sex: female Date of : 1950 Age: 66 y.o. Unit: [id number] Attending Physician: Eric Gavin MD Consulting Physician: Marcio Acosta DO Subjective: H/o bipolar/schizoaffective d/o, depression, htn, hld, diabetic, h/o CAD/CA/chronic angina(ranolazine), h/o morbid obesity, COPD, CVA w/ residual L. Hemiparesis. ?? No further diarrhea since glucophage stopped. Mood better. Still feels anxious and depressed. On Diflucan for groin dermatitis. C.diff neg. ??05/03 Anti-fungal powder not effective for groin rash No fever. ?? No n/v Took lorazepam last night Intake 90%. ??Good fluid intake No other c/o ? ua w/ 96 WBC, +LE/nitrites. ??Will start abx. Empirically Creat 1.44 (baseline around 1.09 12/2016) BUN 20 Calcium 8.6 H/H 11.4/33.3 Current Facility-Administered Medications Medication Dose Route Frequency Last Rate Last Dose ??? acetaminophen (TYLENOL) tablet 650 mg 650 mg Oral Q4H PRN 650 mg at 05/07/172132 ? ? aluminum & magnesium hydroxide-simethicone 200-200-20 mg/5 mL suspension 30 mL 30 mL Oral Q2H PRN ??? ARIPiprazole (ABILIFY) tablet 30 mg 30 mg Oral Daily 30 mg at 05/08/1733 ??? aspirin chewable tablet 81 mg 81 mg Oral Daily 81 mg at 05/08/17 0835 ??? atorvastatin (LIPITOR) tablet 20 mg 20 mg Oral Nightly 20 mg at 05/07/172132 ??? dextrose 50 % solution 25 mL 25 mL Intravenous PRN ??? ferrous sulfate tablet 325 mg 325 mg Oral BID WM 325 mg at 05/08/17832 ??? fluconazole (DIFLUCAN) tablet 150 mg 150 mg Oral Daily 150 mg at 05/08/17833 ??? fUROsemide (LASix) tablet 20 mg 20 mg Oral Daily 20 mg at 05/08/17833 ??? glipiZIDE (GLUCOTROL) tablet 10 mg 10 mg Oral BID WM 10 mg at 05/08/17833 ??? glucagon (human recombinant) (GLUCAGEN) injection 1 mg 1 mg Intramuscular PRN ??? insulin aspart U-100 (NovoLOG) injection 1-5 Units 1-5 Units Subcutaneous QID WM 1 Units at 05/06/172049 ??? insulin glargine (LANTUS) injection 28 Units 28 Units Subcutaneous QPM (Insulin) 28 Units at 05/07/172138 ??? isosorbide mononitrate (IMDUR) CR tablet 60 mg 60 mg Oral Daily 60 mg at 05/08/17832 ??? lamoTRIgine (LaMICtal) tablet 25 mg 25 mg Oral BID 25 mg at 05/08/17833 ??? lisinopril (PRINIVIL;ZESTril) tablet 5 mg 5 mg Oral Daily 5 mg at 05/08/17832 ??? loperamide (IMODIUM) capsule 2 mg 2 mg Oral QID PRN 2 mg at 05/04/172056 ??? LORazepam (ATIVAN) tablet 0.5 mg 0.5 mg Oral Q4H PRN 0.5 mg at 05/08/17 0232 Or ??? LORazepam (ATIVAN) injection 0.5 mg 0.5 mg Intramuscular Q4H PRN ??? magnesium hydroxide (MILK OF MAGNESIA) 400 mg/5 mL suspension 30 mL 30 mL Oral Q6H PRN ??? metoprolol (LOPRESSOR) tablet 50 mg 50 mg Oral BID 50 mg at 05/08/17833 ??? miconazole (MICATIN) 2 % powder Topical BID And ??? miconazole (MICATIN) 2 % powder Topical PRN ??? nitroGLYCERIN (NITROSTAT) SL tablet 0.4 mg 0.4 mg Sublingual Q5 Min PRN ??? ondansetron (ZOFRAN) tablet 4 mg 4 mg Oral Q4H PRN 4 mg at 05/05/17 1742 Or ??? ondansetron (ZOFRAN) injection 4 mg 4 mg Intramuscular Q4H PRN ??? pantoprazole (PROTONIX) tablet 40 mg 40 mg Oral Daily 40 mg at 05/08/17 0834 ??? ranolazine (RANEXA) SR tablet 1,000 mg 1,000 mg Oral 2 times per day 1,000 mg at 05/08/17 0834 ??? Saccharomyces boulardii (FLORASTOR) capsule 250 mg 250 mg Oral BID 250 mg at 05/08/17 0833 ??? sertraline (ZOLOFT) tablet 200 mg 200 mg Oral Daily 200 mg at 05/08/17 08 ??? traZODone (DESYREL) tablet 200 mg 200 mg Oral Nightly 200 mg at 05/07/17 2133 Objective: Blood pressure 148/84, pulse 58, temperature 97.7 ??F (36.5 ??C), temperature source Oral, resp. rate 18, height 5' 8.5 (1.74 m), weight 225 lb (102.1 kg), SpO2 95 %, not currently . Intake/Output Summary (Last 24 hours) at 05/08/17 0948 Last data filed at 05/07/17 1806 Gross per 24 hour Intake 720 ml Output 0 ml Net 720 ml ?? General: Faby appears alert, well developed, well nourished, in no acute distress, morbid obesity ?? Skin: warm, well perfused and no rashes ?? Head: Normocephalic, without obvious abnormality, atraumatic ?? Eyes: Pupils equal, round and reactive to light and Extraocular movements intact ?? ENT: ENT exam normal, mucous membranes moist ?? Neck: neck is supple and there is full active range of motion ?? Breast: not examined ?? Lungs: clear to auscultation bilaterally ?? Cardiac: heart tones regular ?? Abdomen: abdomen is soft, nontender, and nondistended without hepatosplenomegaly or masses, normoactive bowel sounds are present, there are no peritoneal signs ?? G-TUBE/PEG - NONE. ?? Back: symmetric, no curvature. ROM normal. No CVA tenderness. ?? : not examined ?? Lymphadenopathy: normal and no adenopathy noted ?? Musculoskeletal/Ext: normal muscle bulk with no contractures or deformities and no edema, c/c ortremors. ?? Neurological: normal without focal findings, FOUZIA, reflexes normal and symmetric, no tremors, cogwheeling or rigidity noted and Babinski response negative ?? CLAY CATHETER - NONE ?? Labs: Lab Results Component Value Date FSBS 73 05/08/2017 FSBS 108 (H) 05/07/2017 FSBS 116 (H) 05/07/2017 FSBS 141 (H) 05/07/2017 Lab Results Component Value Date WBC 8.6 05/03/2017 INR 1.09 11/10/2016 NA 144 05/03/2017 K 4.1 05/03/2017 CL 103 05/03/2017 CREATININE 1.44 (H) 05/03/2017 BUN 20 05/03/2017 GLU 133 (H) 05/03/2017 ALT 10 05/03/2017 AST 13 05/03/2017 TSH 2.900 05/03/2017 DDIMER 646 (H) 06/22/2016 RBC 3.70 (L) 05/03/2017 HCT 33.3 (L) 05/03/2017 HGB 11.4 (L) 05/03/2017 HDL 49 05/02/2017 FOLATE 10.15 05/03/2017 [id number] 382 05/03/2017 No results found for: PHENYTOIN, PHENOBARB, VALPROATE, CBMZ Impression/Plan: Acute lower UTI ?Urine cx. W/ E.coli 05/03. ?macrobid x 7 d ?05/04 ?florastor. ?Enc. Po fluids ?Groin dermatitis ?Diflucan x 7 d 05/04 ?Diarrhea Resolved. ?D/t glucophage. ?D/c glucophage 05/05 ?d/c cholestyramine 3/1. ?C.diff ??Neg. ?Start florastor. 05/04 ?Essential hypertension ?Controlled ?Furosemide ?Lisinopril, metoprolol ?asa ?Monitor trends. ?type 2 diabetes mellitus with peripheral neuropathy (HCC) ?controlled ?Accucheck/ssi ?A1c - 6.8 ?Low carb diet ?Glucophage, glipizide, lantus ?monitor ?Morbid obesity with BMI of 45.0-49.9, adult (HCC) ?Elevate hob ?Oxygen continuous ?GINA risk ?Chronic diastolic CHF (congestive heart failure) (HCC) ?EF 65% ??04/12/2017 w/ mild RV dilation ?Decr. Furosemide. ??No edema ?Pt. Needs afterload reduction. ??Continue w/ lisinopril ?Hemiparesis affecting left side as late effect of stroke (HCC) ?acute on chronic Metabolic encephalopathy ?D/t htn, DM, morbid obesity, chronic diastolic CHF ?Depression with suicidal ideation ?Schizoaffective disorder, depressive type (HCC) ?Mood disorder (HCC) ?Management per psych. Signed By: Marcio Acosta DO * Dane Sanchez RN - 05/07/2017 7:30 PM EST Resumed care of patient from outgoing RN . Patient is currently resting in bed with no needs at this time. Denies any pain, no shortness of breath, no nausea or vomiting. Denies dysuria nor hematuria. Alert and oriented. Breathing is even and non labored. Patient is in no acute distress. Plan of care was communicated to patient. All safety checks are in place, bed in lowest position, wheels locked and call light within reach. We will continue to monitor throughout the night and intervene accordingly and notify MD as needed. * Jacque Morfin Recreational Therapist - 05/07/2017 6:58 PM EST Problem # 1 Time of intervention: 2335-6912 Intervention Leisure Methods Pts played Left, Right, Center and listened to music. Participation Pt declined. Went to bed to rest. * Jacque Morfin Recreational Therapist - 05/07/2017 4:20 PM EST Problem # 1 Time of intervention: 6343-7361 Intervention Exercise Methods Chair exercises, Perfect Pitch Washers , and category activity. Participation Pt was asleep. * Eric Gavin MD - 05/07/2017 10:35 AM EST Inpatient Psychiatry Progress Note Admit Date: 05/02/2017 LOS: 5 days Attending: Eric Gavin MD Subjective: I still have thoughts of suicide, I don't hear any voices The patient still reports thoughts of suicide, the patient stated that she is not much better. However the patient stated about not having auditory hallucinations, the patient still reports some insomnia. Patient does not look internally preoccupied, in many ways her depression is attention seeking behavior. I think that the patient shows borderline tendencies in addition to her diagnosis of schizoaffective and bipolar disorder. Will increase Lamictal, will increase Trazodone at night, will follow, if the patient is better over the weekend she may be discharged early next week. Objective: Patient Vitals for the past 24 hrs: BP Temp Temp src Pulse Resp SpO2 05/07/17 0838 128/56 98.3 ??F (36.8 ??C) Oral 54 16 94 % 05/06/17 1946 111/58 98.5 ??F (36.9 ??C) Oral 52 16 92 % Labs: Labs were reviewed Review of Systems: A comprehensive ROS was completed including: Constitutional, HEENT, Cardiovascular, Respiratory, GI, TRUPTI, Musculoskeletal, Integumentary, Neurological, Psychiatric, Endocrine, Hematology/Lymphatics. All were negative except for what was noted above in HPI. Scheduled Meds: ??? ARIPiprazole 30 mg Oral Daily ??? aspirin 81 mg Oral Daily ??? atorvastatin 20 mg Oral Nightly ??? ferrous sulfate 325 mg Oral BID WM ??? fluconazole 150 mg Oral Daily ??? fUROsemide 20 mg Oral Daily ??? glipiZIDE 10 mg Oral BID WM ??? insulin aspart U-100 1-5 Units Subcutaneous QID WM ??? insulin glargine 28 Units Subcutaneous QPM (Insulin) ??? isosorbide mononitrate 60 mg Oral Daily ??? lamoTRIgine 25 mg Oral BID ??? lisinopril 5 mg Oral Daily ??? metoprolol 50 mg Oral BID ??? miconazole Topical BID ??? pantoprazole 40 mg Oral Daily ??? ranolazine 1,000 mg Oral 2 times per day ??? Saccharomyces boulardii 250 mg Oral BID ??? sertraline 200 mg Oral Daily ??? traZODone 150 mg Oral Nightly Family History Problem Relation Age of Onset [...] on file Social History Narrative Lives at [facility] Has two children and two grandchildren. Is Past Medical History: Diagnosis Date ??? Atrial flutter (HCC) EPS, AFL Ablation on 12/31/[address] Tee ??? CHF (congestive heart failure) (HCC) ??? COPD (chronic obstructive pulmonary disease) (HCC) ??? DDD (degenerative disc disease) ??? Diabetes mellitus (HCC) ??? Hypertension ??? Intellectual disability 05/03/2017 ??? CA (myocardial infarction) ??? RLS (restless legs syndrome) ??? Schizoaffective disorder, depressive type (HCC) 02/19/2017 ??? Stroke (HCC) 2010 left side affected ??? Suicide attempt ??? Urinary incontinence ??? Yeast infection recurrent [...] AND BRUSHING; Surgeon: Be Brown MD; Location: [facility]; Service: Endoscopy Mental Status Exam: Estimated Reliability: Unreliable Appearance: Fair Dress: Appropriate Psychomotor Activity: Psychomotor Retardation Attitude: Cooperative Responsiveness: Alert Speech: Spontaneous and Slow Mood: Depressed and Anxious Affect: Constricted Thought Process: Illogical and Confused Thought Content: No Disturbances Perception: No Disturbances Orientation: Person, Place and Time Memory: Deficit Insight: Does not understand problem Judgement: Poor Abnormal Involuntary Movement: Absent Assessment: Provisional Diagnosis: [place] I:Schizoaffective disorder, depressive type??diagnosis provisional [place] II: intellectual ??disability, mild Borderline personality disorder [place] III: ??see PMH/PSH ? [place] IV: severe [place] V: 20 Active Hospital Problems Diagnosis ??? *Schizoaffective disorder, depressive type (HCC) Priority: High ??? Diarrhea ??? Acute lower UTI ??? Morbid obesity with BMI of 45.0-49.9, adult (HCC) ??? Metabolic encephalopathy ??? Depression with suicidal ideation ??? Intellectual disability ??? 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 (HCC) ??? Mood disorder (HCC) ??? Chronic diastolic CHF (congestive heart failure) (HCC) ??? Hemiparesis affecting left side as late effect of stroke (HCC) ??? Essential hypertension Plan: Will continue hospitalization as the least restrictive means for providing care. The patient still has attention seeking behavior, the patient still reports depression, thoughts ofsuicide. The patient denies auditory and visual hallucinations. Will continue management, will increase Lamictal and Trazodone , will follow. The patient may be discharged after the weekend if she has good the next few days. Eric Gavin MD * Neisha Amezquita RN - 05/07/2017 5:50 AM EST Pt has been cooperative throughout this shift. She received PO ativan at 0203 for restlessness and has been sleeping since. No other prn medications were given. She slept for about 6 hours. No negative behaviors noted. Pt is currently sleeping in her room. Will continue to monitor. * Ela Knapp RN - 05/06/2017 5:00 PM EST Pt calm and cooperative today. Pt took meds whole. Pt slept most of the afternoon. Pt rated her depression 9/10. Pt denies SI here at hospital but stated that she would be suicidal at home. * Jacque Morfin Recreational Therapist - 05/06/2017 3:37 PM EST Problem # 1 Time of intervention: 1529-0455 Intervention Leisure Methods Name that [employer]. Socialization and reminiscence. Participation Pt was asleep. * Barron Patel - 05/06/2017 2:56 PM EST 05/06/17 1400 Pastoral Care Encounter Visited With Asleep Date of visit 05/06/17 Visit Type Follow-up [employer] Needs Prayer * Jacque Morfin Recreational Therapist - 05/06/2017 1:08 PM EST Problem # 1 Time of intervention: 5473-9531 Intervention Exercise Methods Ball toss, chair exercises, ring toss, and trivia. Participation Pt was asleep. * Eric Gavin MD - 05/06/2017 11:18 AM EST Inpatient Psychiatry Progress Note Admit Date: 05/02/2017 LOS: 4 days Attending: Eric Gavin MD Subjective: I still have thoughts of suicide The patient was seen for the follow-up. The patient still stated about having thoughts of suicide, the patient still reports depression and anxiety. The patient denies auditory and visual hallucinations, the patient does not look internally preoccupied. The patient still was talking about her boyfriend today. Her insight and judgment is very limited, the patient also most likely has borderline personality disorder in addition to her mood disorder. The patient is not very insightful in terms of her stress management abilities. Objective: Patient Vitals for the past 24 hrs: BP Temp Temp src Pulse Resp SpO2 05/06/17 0857 144/52 - - 53 - - 05/05/17 2050 125/55 98.3 ??F (36.8 ??C) Oral 59 18 94 % Labs: Labs were reviewed Review of Systems: A comprehensive ROS was completed including: Constitutional, HEENT, Cardiovascular, Respiratory, GI, TRUPTI, Musculoskeletal, Integumentary, Neurological, Psychiatric, Endocrine, Hematology/Lymphatics. All were negative except for what was noted above in HPI. Scheduled Meds: ??? ARIPiprazole 30 mg Oral Daily ??? aspirin 81 mg Oral Daily ??? atorvastatin 20 mg Oral Nightly ??? ferrous sulfate 325 mg Oral BID WM ??? fluconazole 150 mg Oral Daily ??? fUROsemide 20 mg Oral Daily ??? glipiZIDE 10 mg Oral BID WM ??? insulin aspart U-100 1-5 Units Subcutaneous QID WM ??? insulin glargine 28 Units Subcutaneous QPM (Insulin) ??? isosorbide mononitrate 60 mg Oral Daily ??? lamoTRIgine 25 mg Oral Daily ??? lisinopril 5 mg Oral Daily ??? metoprolol 50 mg Oral BID ??? miconazole Topical BID ??? nitrofurantoin (macrocrystal-monohydrate) 100 mg Oral BID ??? pantoprazole 40 mg Oral Daily ??? ranolazine 1,000 mg Oral 2 times per day ??? Saccharomyces boulardii 250 mg Oral BID ??? sertraline 200 mg Oral Daily ??? traZODone 150 mg Oral Nightly Family History Problem Relation Age of Onset [...] on file Social History Narrative Lives at [facility] Has two children and two grandchildren. Is Past Medical History: Diagnosis Date ??? Atrial flutter (HCC) EPS, AFL Ablation on 12/31/[address] Tee ??? CHF (congestive heart failure) (HCC) ??? COPD (chronic obstructive pulmonary disease) (HCC) ??? DDD (degenerative disc disease) ??? Diabetes mellitus (HCC) ??? Hypertension ??? Intellectual disability 05/03/2017 ??? CA (myocardial infarction) ??? RLS (restless legs syndrome) ??? Schizoaffective disorder, depressive type (HCC) 02/19/2017 ??? Stroke (HCC) 2010 left side affected ??? Suicide attempt ??? Urinary incontinence ??? Yeast infection recurrent [...] Brown MD; Location: [facility]; Service: Endoscopy Mental Status Exam: Estimated Reliability: Unreliable Appearance: Fair Dress: Appropriate Psychomotor Activity: Psychomotor Retardation Attitude: Cooperative Responsiveness: Alert Speech: Slow Mood: Depressed and Anxious Affect: Constricted Thought Process: Illogical Thought Content: Suicidal Ideation/Intent Perception: No Disturbances Orientation: Person and Place Memory: Deficit Insight: Blames others Judgement: Poor Abnormal Involuntary Movement: Absent Assessment: Provisional Diagnosis: [place] I:Schizoaffective disorder, depressive type??diagnosis provisional [place] II: intellectual ??disability, mild [place] III: ??see PMH/PSH ? [place] IV: severe [place] V: 20 Active Hospital Problems Diagnosis ??? *Schizoaffective disorder, depressive type ([facility]) Priority: High ??? Diarrhea ??? Acute lower UTI ??? Morbid obesity with BMI of 45.0-49.9, adult ([facility]) ??? Metabolic encephalopathy ??? Depression with suicidal ideation ??? Intellectual disability ??? 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 ([facility]) ??? Mood disorder (HCC) ??? Chronic diastolic CHF (congestive heart failure) ([facility]) ??? Hemiparesis affecting left side as late effect of stroke ([facility]) ??? Essential hypertension Plan: Will continue hospitalization as the least restrictive means for providing care. The patient was seen for the follow-up. The patient was alert, oriented to person and place, the patient still reported depression and anxiety. The patient still stated that she had thoughts of suicide. Her insight and judgment is very much impaired, the patient has also most likely borderline personality disorder. Will add Lamictal 25 mg PO daily, will follow, will observe for suicidal thoughts. Eric Gavin MD * Marcio Acosta DO - 05/06/2017 7:36 AM EST Patient: Faby Palm Sex: female Date of : 1950 Age: 66 y.o. Unit: [place] [address] Attending Physician: Eric Gavin MD Consulting Physician: Marcio Acosta DO Subjective: H/o bipolar/schizoaffective d/o, depression, htn, hld, diabetic, h/o CAD/CA/chronic angina(ranolazine), h/o morbid obesity, COPD, CVA w/ residual L. Hemiparesis. ?? No further diarrhea since glucophage stopped. Mood better. Still feels anxious and depressed. On Diflucan for groin dermatitis. C.diff neg. 05/03 Anti-fungal powder not effective for groin rash No fever. No n/v Took lorazepam last night Intake 50%. ??Good fluid intake No other c/o ? ua w/ 96 WBC, +LE/nitrites. ??Will start abx. Empirically Creat 1.44 (baseline around 1.09 12/2016) BUN 20 Calcium 8.6 H/H 11.4/33.3 Current Facility-Administered Medications Medication Dose Route Frequency Last Rate Last Dose ??? acetaminophen (TYLENOL) tablet 650 mg 650 mg Oral Q4H PRN 650 mg at 05/05/172100 ? ? aluminum & magnesium hydroxide-simethicone 200-200-20 mg/5 mL suspension 30 mL 30 mL Oral Q2H PRN ??? ARIPiprazole (ABILIFY) tablet 30 mg 30 mg Oral Daily 30 mg at 05/05/17 0843 ??? aspirin chewable tablet 81 mg 81 mg Oral Daily 81 mg at 05/05/17 0844 ??? atorvastatin (LIPITOR) tablet 20 mg 20 mg Oral Nightly 20 mg at 05/05/172100 ??? cholestyramine light 4 gram packet 4 g 4 g Oral BID 4 g at 05/05/172100 ??? dextrose 50 % solution 25 mL 25 mL Intravenous PRN ??? ferrous sulfate tablet 325 mg 325 mg Oral BID WM 325 mg at 05/05/17 1707 ??? fluconazole (DIFLUCAN) tablet 150 mg 150 mg Oral Daily 150 mg at 05/05/17 0844 ??? fUROsemide (LASix) tablet 20 mg 20 mg Oral Daily 20 mg at 05/05/17 0843 ??? glipiZIDE (GLUCOTROL) tablet 10 mg 10 mg Oral BID WM 10 mg at 05/05/17 1707 ??? glucagon (human recombinant) (GLUCAGEN) injection 1 mg 1 mg Intramuscular PRN ??? insulin aspart U-100 (NovoLOG) injection 1-5 Units 1-5 Units Subcutaneous QID WM 1 Units at 05/05/17 1158 ??? insulin glargine (LANTUS) injection 28 Units 28 Units Subcutaneous QPM (Insulin) 28 Units at 05/05/172109 ??? isosorbide mononitrate (IMDUR) CR tablet 60 mg 60 mg Oral Daily 60 mg at 05/05/17 0843 ??? lisinopril (PRINIVIL;ZESTril) tablet 5 mg 5 mg Oral Daily 5 mg at 05/05/17 0843 ??? loperamide (IMODIUM) capsule 2 mg 2 mg Oral QID PRN 2 mg at 05/04/172056 ??? LORazepam (ATIVAN) tablet 0.5 mg 0.5 mg Oral Q4H PRN 0.5 mg at 05/06/17 0126 Or ??? LORazepam (ATIVAN) injection 0.5 mg 0.5 mg Intramuscular Q4H PRN ??? magnesium hydroxide (MILK OF MAGNESIA) 400 mg/5 mL suspension 30 mL 30 mL Oral Q6H PRN ??? metoprolol (LOPRESSOR) tablet 50 mg 50 mg Oral BID 50 mg at 05/05/172101 ??? miconazole (MICATIN) 2 % powder Topical BID And ??? miconazole (MICATIN) 2 % powder Topical PRN ??? nitrofurantoin (macrocrystal-monohydrate) (MACROBID) 100 mg capsule 100 mg 100 mg Oral BID 100 mg at 05/05/172100 ??? nitroGLYCERIN (NITROSTAT) SL tablet 0.4 mg 0.4 mg Sublingual Q5 Min PRN ??? ondansetron (ZOFRAN) tablet 4 mg 4 mg Oral Q4H PRN 4 mg at 05/05/17 1742 Or ??? ondansetron (ZOFRAN) injection 4 mg 4 mg Intramuscular Q4H PRN ??? pantoprazole (PROTONIX) tablet 40 mg 40 mg Oral Daily 40 mg at 05/05/17 0843 ??? ranolazine (RANEXA) SR tablet 1,000 mg 1,000 mg Oral 2 times per day 1,000 mg at 05/05/172100 ??? Saccharomyces boulardii (FLORASTOR) capsule 250 mg 250 mg Oral BID 250 mg at 05/05/172100 ??? sertraline (ZOLOFT) tablet 200 mg 200 mg Oral Daily 200 mg at 05/05/17843 ??? traZODone (DESYREL) tablet 150 mg 150 mg Oral Nightly 150 mg at 05/05/172100 Objective: Blood pressure 125/55, pulse 59, temperature 98.3 ??F (36.8 ??C), temperature source Oral, resp. rate 18, height 5' 8.5 (1.74 m), weight 225 lb (102.1 kg), SpO2 94 %, not currently . Intake/Output Summary (Last 24 hours) at 05/06/17 0737 Last data filed at 05/06/17 0135 Gross per 24 hour Intake 1200 ml Output 0 ml Net 1200 ml ?? General: Faby appears alert, well developed, well nourished, in no acute distress, morbid obesity ?? Skin: warm, well perfused and no rashes ?? Head: Normocephalic, without obvious abnormality, atraumatic ?? Eyes: Pupils equal, round and reactive to light and Extraocular movements intact ?? ENT: ENT exam normal, mucous membranes moist ?? Neck: neck is supple and there is full active range of motion ?? Breast: not examined ?? Lungs: clear to auscultation bilaterally ?? Cardiac: heart tones regular ?? Abdomen: abdomen is soft, nontender, and nondistended without hepatosplenomegaly or masses, normoactive bowel sounds are present, there are no peritoneal signs ?? G-TUBE/PEG - NONE. ?? Back: symmetric, no curvature. ROM normal. No CVA tenderness. ?? : not examined ?? Lymphadenopathy: normal and no adenopathy noted ?? Musculoskeletal/Ext: normal muscle bulk with no contractures or deformities and no edema, c/c ortremors. ?? Neurological: normal without focal findings, FOUZIA, reflexes normal and symmetric, no tremors, cogwheeling or rigidity noted and Babinski response negative ?? CLAY CATHETER - NONE ?? Labs: Lab Results Component Value Date FSBS 175 (H) 05/05/2017 FSBS 136 (H) 05/05/2017 FSBS 158 (H) 05/05/2017 FSBS 73 05/05/2017 Lab Results Component Value Date WBC 8.6 05/03/2017 INR 1.09 11/10/2016 NA 144 05/03/2017 K 4.1 05/03/2017 CL 103 05/03/2017 CREATININE 1.44 (H) 05/03/2017 BUN 20 05/03/2017 GLU 133 (H) 05/03/2017 ALT 10 05/03/2017 AST 13 05/03/2017 TSH 2.900 05/03/2017 DDIMER 646 (H) 06/22/2016 RBC 3.70 (L) 05/03/2017 HCT 33.3 (L) 05/03/2017 HGB 11.4 (L) 05/03/2017 HDL 49 05/02/2017 FOLATE 10.15 05/03/2017 [id number] 382 05/03/2017 No results found for: PHENYTOIN, PHENOBARB, VALPROATE, CBMZ Impression/Plan: Acute lower UTI ?Urine cx. W/ E.coli 05/03. ?Pt. W/ diarrhea. ?Start macrobid x 7 d ?05/04 ?florastor. ?Enc. Po fluids ?Groin dermatitis ?Diflucan x 7 d 05/04 ?Diarrhea Resolved. D/t glucophage. D/c glucophage 05/05 d/c cholestyramine 05/06. ?C.diff Neg. ?Start florastor. 05/04 ??? Essential hypertension ?Controlled ?Furosemide ?Lisinopril, metoprolol ?asa ?Monitor trends. ??? type 2 diabetes mellitus with peripheral neuropathy (HCC) ?controlled ?Accucheck/ssi ?A1c -pending. ?Low carb diet ?Glucophage, glipizide, lantus ?monitor ??? Morbid obesity with BMI of 45.0-49.9, adult (HCC) ?Elevate hob ?Oxygen continuous ?GINA risk ??? Chronic diastolic CHF (congestive heart failure) (HCC) ?EF 65% ??04/12/2017 w/ mild RV dilation ?Decr. Furosemide. ??No edema ?Pt. Needs afterload reduction. ??Continue w/ lisinopril ??? Hemiparesis affecting left side as late effect of stroke (HCC) ??? acute on chronic Metabolic encephalopathy ?D/t htn, DM, morbid obesity, chronic diastolic CHF ??? Depression with suicidal ideation ??? Schizoaffective disorder, depressive type (HCC) ??? Mood disorder (HCC) ?Management per psych. Signed By: Marcio Acosta DO * Dane Sanchez RN - 05/05/2017 7:22 PM EST Resumed care of patient from outgoing RN . Patient is currently resting in bed with no needs at this time. Denies any pain, no shortness of breath, no nausea or vomiting. Alert and oriented. Breathing is even and non labored. Patient is in no acute distress. Plan of care has been explained to patient. All safety checks are in place, bed in lowest position, wheels locked and call light within reach. We will continue to monitor throughout the night and intervene accordingly and notify MD/PA/PIPE BENDING MACHINE OPERATOR asneeded. * Mehdi Dennis - 05/05/2017 2:57 PM EST 05/05/17 1130 Pastoral Care Encounter Visited With Asleep Date of visit 05/05/17 Visit Type Follow-up Episcopalian Needs Prayer Sacramental Needs Communion Requested Yes Communion Received No * Valerie Wayne LCSW - 05/05/2017 11:34 AM EST 05/05/17 1130 Assessment Complete Actual Discharge Plan 05/05 SW: Met with pt in her room. +SI. Plan remains to lay on RR tracks. C/O nausea. When asked what she believed to be the cuase of her nausea she stated nerves. Asked pt what she was thinking about that was upsetting to her and she shrugged her shoulders and closed her eyes. Asked pt if it might have something to do with knowing she has to go back home eventually and face [place]. Pt agreed with this and stated that I need to call [place] today. * Jackeline Albarran RN - 05/05/2017 11:30 AM EST Patient states that she feels like she is in a better mood today. Says that her depression and anxiety are unchanged from yesterday. Patient up in day room for breakfast, but back to bed to sleep soon after. PRN zofran given this morning before breakfast, but denies needing Ativan at this time. Will continue to monitor. * Eric Gavin MD - 05/05/2017 8:56 AM EST Inpatient Psychiatry Progress Note Admit Date: 05/02/2017 LOS: 3 days Attending: Eric Gavin MD Subjective: I think I'm starting to feel better, I'm not sure about having thoughts of suicide today The patient was seen for the follow-up regarding her depression thoughts of suicide. The patient was in her bed, the patient stated about being too early in the morning to be specific about the date.The patient stated that yesterday she had a better day, the patient stated about thoughts of suicide decreasing. The patient is quite limited in her approach. The patient denies auditory and visual hallucinations, the patient stated about being better emotionally. Objective: Patient Vitals for the past 24 hrs: BP Temp Temp src Pulse Resp SpO2 05/05/17 0755 146/82 98.1 ??F (36.7 ??C) Oral 60 18 91 % 05/04/17 1936 123/53 98.4 ??F (36.9 ??C) Oral 57 18 93 % 05/04/17 0915 123/70 98.4 ??F (36.9 ??C) Oral 57 18 98 % Labs: Labs were reviewed Review of Systems: A comprehensive ROS was completed including: Constitutional, HEENT, Cardiovascular, Respiratory, GI, TRUPTI, Musculoskeletal, Integumentary, Neurological, Psychiatric, Endocrine, Hematology/Lymphatics. All were negative except for what was noted above in HPI. Scheduled Meds: ??? ARIPiprazole 30 mg Oral Daily ??? aspirin 81 mg Oral Daily ??? atorvastatin 20 mg Oral Nightly ??? cholestyramine light 4 g Oral BID ??? ferrous sulfate 325 mg Oral BID WM ??? fluconazole 150 mg Oral Daily ??? fUROsemide 20 mg Oral Daily ??? glipiZIDE 10 mg Oral BID WM ??? insulin aspart U-100 1-5 Units Subcutaneous QID WM ??? insulin glargine 28 Units Subcutaneous QPM (Insulin) ??? isosorbide mononitrate 60 mg Oral Daily ??? lisinopril 5 mg Oral Daily ??? metoprolol 50 mg Oral BID ??? miconazole Topical BID ??? nitrofurantoin (macrocrystal-monohydrate) 100 mg Oral BID ??? pantoprazole 40 mg Oral Daily ??? ranolazine 1,000 mg Oral 2 times per day ??? Saccharomyces boulardii 250 mg Oral BID ??? sertraline 200 mg Oral Daily ??? traZODone 150 mg Oral Nightly Family History Problem Relation Age of Onset [...] on file Social History Narrative Lives at [facility] Has two children and two grandchildren. Is Past Medical History: Diagnosis Date ??? Atrial flutter (HCC) EPS, AFL Ablation on 12/31/[address] Tee ??? CHF (congestive heart failure) (HCC) ??? COPD (chronic obstructive pulmonary disease) (HCC) ??? DDD (degenerative disc disease) ??? Diabetes mellitus (HCC) ??? Hypertension ??? Intellectual disability 05/03/2017 ??? CA (myocardial infarction) ??? RLS (restless legs syndrome) ??? Schizoaffective disorder, depressive type (HCC) 02/19/2017 ??? Stroke (HCC) 2010 left side affected ??? Suicide attempt ??? Urinary incontinence ??? Yeast infection recurrent [...] AND BRUSHING; Surgeon: Be Brown MD; Location: [facility]; Service: Endoscopy Mental Status Exam: Estimated Reliability: Unreliable Appearance: Fair Dress: Appropriate Psychomotor Activity: Psychomotor Retardation Attitude: Cooperative Responsiveness: Alert Speech: Slow and Soft Mood: Depressed and Anxious Affect: Constricted Thought Process: Illogical and Confused Thought Content: No Disturbances Perception: No Disturbances Orientation: Person and Place Memory: Deficit Insight: Blames others Judgement: Poor Abnormal Involuntary Movement: Absent Assessment: Provisional Diagnosis: [place] I:Schizoaffective disorder, depressive type??diagnosis provisional [place] II: intellectual ??disability, mild [place] III: ??see PMH/PSH ? [place] IV: severe [place] V: 20 Active Hospital Problems Diagnosis ??? *Schizoaffective disorder, depressive type ([facility]) Priority: High ??? Diarrhea ??? Acute lower UTI ??? Morbid obesity with BMI of 45.0-49.9, adult (HCC) ??? Metabolic encephalopathy ??? Depression with suicidal ideation ??? Intellectual disability ??? 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 (HCC) ??? Mood disorder (HCC) ??? Chronic diastolic CHF (congestive heart failure) (HCC) ??? Hemiparesis affecting left side as late effect of stroke (HCC) ??? Essential hypertension Plan: The patient stated about feeling better, her thoughts of suicide are decreasing. The patient deniesauditory and visual hallucinations. In many ways the patient presentation is significant for attention seeking behavior, the patient has thoughts of suicide that probably could be the best managed bymeans of behavioral approach. The patient has limited understanding of her situation. Will continue management, will follow, will observe for suicidal ideations, the planned discharge may take place on Wednesday if the patient continues to do better. Eric Gavin MD * Marcio Acosta DO - 05/05/2017 7:21 AM EST Patient: Faby Palm Sex: female Date of : 1950 Age: 66 y.o. Unit: [id number] Attending Physician: Eric Gavin MD Consulting Physician: Marcio Acosta DO Subjective: H/o bipolar/schizoaffective d/o, depression, htn, hld, diabetic, h/o CAD/CA/chronic angina(ranolazine), h/o morbid obesity, COPD, CVA w/ residual L. Hemiparesis. ?? Pt. W/ another episode watery explosive stool, malodorous. Pt. On glucophage. Pt. Is having 2 BM's daily, watery. No abd. Cramping or pain. No fevers, nausea. Will d/c glucophage. On macrobid empirically for UTI. Urine cx. Preliminary w/ 100k E. Coli. Sens. Pending. On Diflucan for groin dermatitis. C.diff neg. 05/03 Anti-fungal powder not effective for groin rash No fever. No n/v Took lorazepam last night Intake 75%. Good fluid intake, + loose watery BM yesterday. No other c/o ? ua w/ 96 WBC, +LE/nitrites. Will start abx. Empirically Creat 1.44 (baseline around 1.09 12/2016) BUN 20 Calcium 8.6 H/H 11.4/33.3 Current Facility-Administered Medications Medication Dose Route Frequency Last Rate Last Dose ??? acetaminophen (TYLENOL) tablet 650 mg 650 mg Oral Q4H PRN ? ? aluminum & magnesium hydroxide-simethicone 200-200-20 mg/5 mL suspension 30 mL 30 mL Oral Q2H PRN ??? ARIPiprazole (ABILIFY) tablet 30 mg 30 mg Oral Daily 30 mg at 05/04/171314 ??? aspirin chewable tablet 81 mg 81 mg Oral Daily 81 mg at 05/04/171314 ??? atorvastatin (LIPITOR) tablet 20 mg 20 mg Oral Nightly 20 mg at 05/04/172056 ??? dextrose 50 % solution 25 mL 25 mL Intravenous PRN ??? ferrous sulfate tablet 325 mg 325 mg Oral BID WM 325 mg at 05/04/17 180 ??? fluconazole (DIFLUCAN) tablet 150 mg 150 mg Oral Daily 150 mg at 05/04/171314 ??? fUROsemide (LASix) tablet 20 mg 20 mg Oral Daily 20 mg at 05/04/171314 ??? glipiZIDE (GLUCOTROL) tablet 10 mg 10 mg Oral BID WM 10 mg at 05/04/171803 ??? glucagon (human recombinant) (GLUCAGEN) injection 1 mg 1 mg Intramuscular PRN ??? insulin aspart U-100 (NovoLOG) injection 1-5 Units 1-5 Units Subcutaneous QID WM 2 Units at 05/04/171313 ??? insulin glargine (LANTUS) injection 28 Units 28 Units Subcutaneous QPM (Insulin) 28 Units at 05/04/172057 ??? isosorbide mononitrate (IMDUR) CR tablet 60 mg 60 mg Oral Daily 60 mg at 05/04/171314 ??? lisinopril (PRINIVIL;ZESTril) tablet 5 mg 5 mg Oral Daily 5 mg at 05/04/171314 ??? loperamide (IMODIUM) capsule 2 mg 2 mg Oral QID PRN 2 mg at 05/04/172056 ??? LORazepam (ATIVAN) tablet 0.5 mg 0.5 mg Oral Q4H PRN 0.5 mg at 05/04/172056 Or ??? LORazepam (ATIVAN) injection 0.5 mg 0.5 mg Intramuscular Q4H PRN ??? magnesium hydroxide (MILK OF MAGNESIA) 400 mg/5 mL suspension 30 mL 30 mL Oral Q6H PRN ??? metFORMIN (GLUCOPHAGE) tablet 500 mg 500 mg Oral BID WM 500 mg at 05/04/171803 ??? metoprolol (LOPRESSOR) tablet 50 mg 50 mg Oral BID 50 mg at 05/04/172056 ??? miconazole (MICATIN) 2 % powder Topical BID And ??? miconazole (MICATIN) 2 % powder Topical PRN ??? nitrofurantoin (macrocrystal-monohydrate) (MACROBID) 100 mg capsule 100 mg 100 mg Oral BID 100 mg at 05/04/172056 ??? nitroGLYCERIN (NITROSTAT) SL tablet 0.4 mg 0.4 mg Sublingual Q5 Min PRN ??? ondansetron (ZOFRAN) tablet 4 mg 4 mg Oral Q4H PRN 4 mg at 05/04/171803 Or ??? ondansetron (ZOFRAN) injection 4 mg 4 mg Intramuscular Q4H PRN ??? pantoprazole (PROTONIX) tablet 40 mg 40 mg Oral Daily 40 mg at 05/04/171313 ??? ranolazine (RANEXA) SR tablet 1,000 mg 1,000 mg Oral 2 times per day 1,000 mg at 05/04/172056 ??? Saccharomyces boulardii (FLORASTOR) capsule 250 mg 250 mg Oral BID 250 mg at 05/04/172056 ??? sertraline (ZOLOFT) tablet 200 mg 200 mg Oral Daily 200 mg at 02/27/18 1315 ??? traZODone (DESYREL) tablet 150 mg 150 mg Oral Nightly 150 mg at 05/04/172056 Objective: Blood pressure 123/53, pulse 57, temperature 98.4 ??F (36.9 ??C), temperature source Oral, resp. rate 18, height 5' 8.5 (1.74 m), weight 225 lb (102.1 kg), SpO2 93 %, not currently . Intake/Output Summary (Last 24 hours) at 05/05/17 0722 Last data filed at 05/04/17 1801 Gross per 24 hour Intake 960 ml Output 0 ml Net 960 ml ?? General: Faby appears alert, well developed, well nourished, in no acute distress, morbid obesity. ?? Skin: warm, well perfused and no rashes ?? Head: Normocephalic, without obvious abnormality, atraumatic ?? Eyes: Pupils equal, round and reactive to light and Extraocular movements intact ?? ENT: ENT exam normal, mucous membranes moist ?? Neck: neck is supple and there is full active range of motion ?? Breast: not examined ?? Lungs: clear to auscultation bilaterally ?? Cardiac: heart tones regular ?? Abdomen: abdomen is soft, nontender, and nondistended without hepatosplenomegaly or masses, normoactive bowel sounds are present, there are no peritoneal signs ?? G-TUBE/PEG - NONE. ?? Back: symmetric, no curvature. ROM normal. No CVA tenderness. ?? : not examined ?? Lymphadenopathy: normal and no adenopathy noted ?? Musculoskeletal/Ext: normal muscle bulk with no contractures or deformities and no edema, c/c ortremors. ?? Neurological: normal without focal findings, FOUIZA, reflexes normal and symmetric, no tremors, cogwheeling or rigidity noted and Babinski response negative ?? CLAY CATHETER - NONE ?? Labs: Lab Results Component Value Date FSBS 110 (H) 05/04/2017 FSBS 105 (H) 05/04/2017 FSBS 203 (H) 05/04/2017 FSBS 127 (H) 05/04/2017 Lab Results Component Value Date WBC 8.6 05/03/2017 INR 1.09 11/10/2016 NA 144 05/03/2017 K 4.1 05/03/2017 CL 103 05/03/2017 CREATININE 1.44 (H) 05/03/2017 BUN 20 05/03/2017 GLU 133 (H) 05/03/2017 ALT 10 05/03/2017 AST 13 05/03/2017 TSH 2.900 05/03/2017 DDIMER 646 (H) 06/22/2016 RBC 3.70 (L) 05/03/2017 HCT 33.3 (L) 05/03/2017 HGB 11.4 (L) 05/03/2017 HDL 49 05/02/2017 FOLATE 10.15 05/03/2017 [id number] 382 05/03/2017 No results found for: PHENYTOIN, PHENOBARB, VALPROATE, CBMZ Impression/Plan: Acute lower UTI Urine cx. Pending Pt. W/ diarrhea. Start macrobid x 7 d 05/04 florastor. Enc. Po fluids Groin dermatitis Diflucan x 7 d 05/04 Diarrhea Prob. D/t glucophage. D/c glucophage 05/05 Add cholestyramine. 05/05 C.diff Neg. Start florastor. 05/04 ??? Essential hypertension Controlled Furosemide Lisinopril, metoprolol asa Monitor trends. ??? type 2 diabetes mellitus with peripheral neuropathy (HCC) controlled Accucheck/ssi A1c -pending. Low carb diet Glucophage, glipizide, lantus monitor ??? Morbid obesity with BMI of 45.0-49.9, adult (HCC) Elevate hob Oxygen continuous GINA risk ??? Chronic diastolic CHF (congestive heart failure) (HCC) EF 65% 04/12/2017 w/ mild RV dilation Decr. Furosemide. No edema Pt. Needs afterload reduction. Continue w/ lisinopril ??? Hemiparesis affecting left side as late effect of stroke (HCC) ??? acute on chronic Metabolic encephalopathy D/t htn, DM, morbid obesity, chronic diastolic CHF ??? Depression with suicidal ideation ??? Schizoaffective disorder, depressive type (HCC) ??? Mood disorder (HCC) Management per psych. Signed By: Marcio Acosta DO * Deena Bender RN - 05/05/2017 5:00 AM EST VSS. Pt had another large episode watery stool. Pt stated she needed help sleeping and requested the ativan again. About an hour later, she asked for more ativan to help her sleep. Explained that permar, I could not give more. She took her scheduled trazodone as well. Pt went to sleep an hour later and stayed resting in bed with no further requests. Call light in reach. Will continue to monitor * Viktoriya Haro, Recreational Therapist - 05/04/2017 2:45 PM EST Problem #1 Time of intervention: 13:50-14:25 pm Intervention Leisure Skills Methods Wii Leisure skills group - a group effort to play a variety of TV game shows. It encouraged individual effort, brainstorming and cooperation. Patient contributed throughout the activity. Participation Pt. In bed. * Viktoriya Haro, Recreational Therapist - 05/04/2017 12:40 PM EST Problem #1 Time of intervention: 10:15-10:50 am Intervention Exercise Methods Introductions, ball toss, music, exercises Participation Pt. Did not attend or participate in group. * Valerie Wayne LCSW - 05/04/2017 11:53 AM EST Problem # 1 Time of intervention: 11:00 - 11:45 Intervention Other - SW Group Methods Worksheet and Other - Values Participation Pt in room; c/o nausea. Had brief 1:1. See Care Coordination Note. * Valerie Wayne LCSW - 05/04/2017 11:50 AM EST 05/04/17 1148 Assessment Complete Actual Discharge Plan 05/04 SW: Met with pt in her room. C/O nausea. RN aware. Pt shared she had notcalled [place] yet. Discussed if this might have been due to discuss yesterday. Pt agreed. SW let pt know that she was proud of her for standing up for herself and utilizing her own coping skills instead of relying on others. Offered pt a journal, which she accepted and then allowed pt to rest. * Mehdi Dennis - 05/04/2017 11:33 AM EST 05/04/17 1025 Pastoral Care Encounter Visited With Patient Date of visit 05/04/17 Visit Type Follow-up Episcopalian Needs Prayer Sacramental Needs Communion Requested Yes Communion Received Yes * Eric Gavin MD - 05/04/2017 9:24 AM EST Inpatient Psychiatry Progress Note Admit Date: 05/02/2017 LOS: 2 days Attending: Eric Gavin MD Subjective: I feel a little better The patient was seen for the follow-up. The patient took Ativan last night, the patient was still sleepy when I was talking to her in the morning. The patient still was reporting thoughts of suicide yesterday. The patient has extremely poor judgment about her situation, the patient denies auditory and visual hallucinations. The patient overall is quite cooperative. Objective: Patient Vitals for the past 24 hrs: BP Temp Temp src Pulse Resp SpO2 05/03/17 1954 130/60 99 ??F (37.2 ??C) Oral 59 16 93 % Labs: Labs were reviewed Review of Systems: A comprehensive ROS was completed including: Constitutional, HEENT, Cardiovascular, Respiratory, GI, TRUPTI, Musculoskeletal, Integumentary, Neurological, Psychiatric, Endocrine, Hematology/Lymphatics. All were negative except for what was noted above in HPI. Scheduled Meds: ??? ARIPiprazole 30 mg Oral Daily ??? aspirin 81 mg Oral Daily ??? atorvastatin 20 mg Oral Nightly ??? ferrous sulfate 325 mg Oral BID WM ??? fluconazole 150 mg Oral Daily ??? fUROsemide 20 mg Oral Daily ??? glipiZIDE 10 mg Oral BID WM ??? insulin aspart U-100 1-5 Units Subcutaneous QID WM ??? insulin glargine 28 Units Subcutaneous QPM (Insulin) ??? isosorbide mononitrate 60 mg Oral Daily ??? lisinopril 5 mg Oral Daily ??? metFORMIN 500 mg Oral BID WM ??? metoprolol 50 mg Oral BID ??? miconazole Topical BID ??? nitrofurantoin (macrocrystal-monohydrate) 100 mg Oral BID ??? pantoprazole 40 mg Oral Daily ??? ranolazine 1,000 mg Oral 2 times per day ??? Saccharomyces boulardii 250 mg Oral BID ??? sertraline 200 mg Oral Daily ??? traZODone 150 mg Oral Nightly Family History Problem Relation Age of Onset [...] on file Social History Narrative Lives at [facility] Has two children and two grandchildren. Is Past Medical History: Diagnosis Date ??? Atrial flutter (HCC) EPS, AFL Ablation on 12/31/[address] Tee ??? CHF (congestive heart failure) (HCC) ??? COPD (chronic obstructive pulmonary disease) (HCC) ??? DDD (degenerative disc disease) ??? Diabetes mellitus (HCC) ??? Hypertension ??? Intellectual disability 05/03/2017 ??? CA (myocardial infarction) ??? RLS (restless legs syndrome) ??? Schizoaffective disorder, depressive type (HCC) 02/19/2017 ??? Stroke (HCC) 2010 left side affected ??? Suicide attempt ??? Urinary incontinence ??? Yeast infection recurrent [...] Brown MD; Location: [facility]; Service: Endoscopy Mental Status Exam: Estimated Reliability: Unreliable Appearance: Fair Dress: Appropriate Psychomotor Activity: Psychomotor Retardation Attitude: Cooperative Responsiveness: Drowsy Speech: Slow and Soft Mood: Depressed and Anxious Affect: Constricted Thought Process: Illogical Thought Content: Suicidal Ideation/Intent Perception: No Disturbances Orientation: Person, Place and Time Memory: Deficit Insight: Does not understand problem Judgement: Poor Abnormal Involuntary Movement: Absent Assessment: Provisional Diagnosis: [place] I:Schizoaffective disorder, depressive type diagnosis provisional [place] II: intellectual disability, mild [place] III: ??see PMH/PSH ? [place] IV: severe [place] V: 20 ?? Active Hospital Problems Diagnosis ??? *Schizoaffective disorder, depressive type (HCC) Priority: High ??? Diarrhea ??? Acute lower UTI ??? Morbid obesity with BMI of 45.0-49.9, adult (HCC) ??? Metabolic encephalopathy ??? Depression with suicidal ideation ??? Intellectual disability ??? 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 (HCC) ??? Mood disorder (HCC) ??? Chronic diastolic CHF (congestive heart failure) (HCC) ??? Hemiparesis affecting left side as late effect of stroke (HCC) ??? Essential hypertension Plan: Will continue hospitalization as the least restrictive means for providing care. The patient in general is no change much, the patient still was voicing thoughts of suicide yesterday. The patient has extremely impaired judgment about her situation, the patient talked about the situation with her boyfriend. The patient slept better last night. The patient denies auditory and visual hallucinations. Will continue current management, treatment, will follow. Eric Gavin MD * Marcio Acosta DO - 05/04/2017 7:03 AM EST Patient: Faby Palm Sex: female Date of : 1950 Age: 66 y.o. Unit: [place] [id number] Attending Physician: Eric Gavin MD Consulting Physician: Marcio Acosta DO Subjective: H/o bipolar/schizoaffective d/o, depression, htn, hld, diabetic, h/o CAD/CA/chronic angina(ranolazine), h/o morbid obesity, COPD, CVA w/ residual L. Hemiparesis. Pt. W/ diarrhea and excoriated groin area. C.diff sent and pending Anti-fungal powder not effective for groin rash +low grade temp this am. 99 oral. No n/v Took lorazepam last night Intake 100%. Good fluid intake, +diarrhea No other c/o ua w/ 96 WBC, +LE/nitrites. Will start abx. Empirically Creat 1.44 (baseline around 1.09 12/2016) BUN 20 Calcium 8.6 H/H 11.4/33.3 Current Facility-Administered Medications Medication Dose Route Frequency Last Rate Last Dose ??? acetaminophen (TYLENOL) tablet 650 mg 650 mg Oral Q4H PRN ? ? aluminum & magnesium hydroxide-simethicone 200-200-20 mg/5 mL suspension 30 mL 30 mL Oral Q2H PRN ??? ARIPiprazole (ABILIFY) tablet 30 mg 30 mg Oral Daily 30 mg at 05/03/17901 ??? aspirin chewable tablet 81 mg 81 mg Oral Daily 81 mg at 05/03/17901 ??? atorvastatin (LIPITOR) tablet 20 mg 20 mg Oral Nightly 20 mg at 05/03/172104 ??? dextrose 50 % solution 25 mL 25 mL Intravenous PRN ??? ferrous sulfate tablet 325 mg 325 mg Oral BID WM 325 mg at 05/03/171724 ??? fUROsemide (LASix) tablet 20 mg 20 mg Oral Daily 20 mg at 05/03/17901 ??? glipiZIDE (GLUCOTROL) tablet 10 mg 10 mg Oral BID WM 10 mg at 05/03/17 172 ??? glucagon (human recombinant) (GLUCAGEN) injection 1 mg 1 mg Intramuscular PRN ??? insulin aspart U-100 (NovoLOG) injection 1-5 Units 1-5 Units Subcutaneous QID WM 1 Units at 05/03/17900 ??? insulin glargine (LANTUS) injection 28 Units 28 Units Subcutaneous QPM (Insulin) 28 Units at 05/03/172105 ??? isosorbide mononitrate (IMDUR) CR tablet 60 mg 60 mg Oral Daily 60 mg at 05/03/17901 ??? lisinopril (PRINIVIL;ZESTril) tablet 5 mg 5 mg Oral Daily 5 mg at 05/03/17901 ??? LORazepam (ATIVAN) tablet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 ??? MPV 05/03/2017 9.9 ??? Neut Percent 05/03/2017 65.4 ??? Lymph Percent 05/03/2017 24.9 ??? Randolph Percent 05/03/2017 6.3 ??? Eos Percent 05/03/2017 2.9 ??? Baso Percent 05/03/2017 0.5 ??? Neut # 05/03/2017 5.6 ??? Lymph # 05/03/2017 2.1 ??? Randolph # 05/03/2017 0.5 ??? Eos# 05/03/2017 0.2 ??? Baso # 05/03/2017 0.0 ??? TSH 05/03/2017 2.900 ??? Vitamin B12 05/03/2017 382 ??? Folate 05/03/2017 10.15 ??? Glucose Meter POC 05/03/2017 151* ??? Sample Type 05/03/2017 Capillary ??? Patient Status 05/03/2017 Non-Critical Patient ??? Glucose Meter POC 05/03/2017 92 ??? Sample Type 05/03/2017 Capillary ??? Patient Status 05/03/2017 Non-Critical Patient No results found for this or any previous visit. No results found for this or any previous visit. Results for orders placed during the hospital encounter of 04/10/17 EK EKG 12 LEAD Impression Stationary ECG Study [facility] Interpretive Statements SINUS RHYTHM LOW QRS VOLTAGE IN PRECORDIAL LEADS SEPTAL MYOCARDIAL INFARCTION, PROBABLY OLD INFERIOR MYOCARDIAL INFARCTION, PROBABLY OLD WARNING: DATA QUALITY MAY AFFECT INTERPRETATION Electronically Signed On 04-11-2017 15:28:34 EST by Abundio Marin MD Provisional Diagnosis: [place] I:Schizoaffective disorder, depressive type diagnosis provisional [place] II: intellectual disability, mild [place] III: see PMH/PSH [place] IV: severe [place] V: 20 Medication(s) Prescribed: 1) Zoloft 200 mg Po daily 2) Abilify 30 mg Po daily 3) Trazodone 150 mg Po qhs Medication Education: Explanation of indication,benefits, risks, and potential side effects of the prescribed medicine(s) done. Treatment Plan: 1) Stabilize mood, the patient participate in treatment, and reported resolution of thoughts of suicide the patient will be discharged back to the long term. The patient is very much attention seeking, the patient has intellectual disability that makes the treatment difficult. 2) Improve impulse control, the patient had history of many suicidal statements and a couple attempts in the past. 3) Individual/Milieu therapy 4) Pharmacotherapy(if indicated) 5) Maintain or improve compliance Reviewed Treatment Plan with Patient: Yes documented in this encounter Consult Notes * Marcio Acosta DO - 05/03/2017 6:[address] [facility] Consult Name: Faby Palm ADDRESS: [address] [place] [address] : 1950 AGE: 66 y.o. Referring Physician: Eric Gavin MD Admitting Physician: Eric Gavin MD Consulting MD: Marcio Acosta DO Date of Admit: 05/02/2017 SUBJECTIVE History provided by: chart review Reason for consultation: medical management History of Present Illness: H/o bipolar/schizoaffective d/o, depression, htn, hld, diabetic, h/o CAD/CA/chronic angina(ranolazine), h/o morbid obesity, COPD, CVA w/ residual L. Hemiparesis. From home Previous hospitalizations for depression Pt. W/ thoughts of harming herself x sev. Months. Pt. Reporting suicide plan to dress in dark clothes and go sit in front of a train . No report AVH or delusions Pt. Endorses low mood, anergia,anhedonia. No weight loss. Appetite ok Sleep poor. Non smoker No alcohol, recreational drugs Ambulates w/ a walker. On approach pt. Morbidly obese. Flat affect Denies cp, sob, palpitations Does not wear CPAP or O2 Denies GI/ s/s No fevers,cough ED evaluation: Tox. Screen neg. Alcohol level < 10 No blood chemistries. Past Medical History: Diagnosis Date ??? Atrial flutter (HCC) EPS, AFL Ablation on 12/31/[address] Tee ??? CHF (congestive heart failure) (HCC) ??? COPD (chronic obstructive pulmonary disease) (HCC) ??? DDD (degenerative disc disease) ??? Diabetes mellitus (HCC) ??? Hypertension ??? CA (myocardial infarction) ??? RLS (restless legs syndrome) ??? Schizoaffective disorder, depressive type (HCC) 02/19/2017 ??? Stroke (HCC) 2010 left side affected ??? Suicide attempt ??? Urinary incontinence ??? Yeast infection recurrent [...] Medication Sig Dispense Refill Last Dose ??? ARIPiprazole (ABILIFY) 30 mg Oral Tablet Take 1 Tab by mouth daily. 30 Tab 0 Taking at Unknown time ??? aspirin 81 mg Oral Tablet, Chewable Take 1 Tab by mouth daily. 60 Tab 0 Taking at Unknown time ??? atorvastatin (LIPITOR) 20 mg Oral Tablet TAKE ONE TABLET BY MOUTH NIGHTLY 30 Tab 1 05/01/2017 atUnknown time ??? ferrous sulfate 325 mg (65 mg iron) Oral Tablet Take 1 Tab by mouth 2 times daily (with meals).60 Tab 5 05/02/2017 at Unknown time ??? fUROsemide (LASIX) 40 mg Oral Tablet Take 1 Tab by mouth daily. 30 Tab 2 Taking at Unknown time ??? glipiZIDE (GLUCOTROL) 10 mg Oral Tablet Take 10 mg by mouth 2 times daily (with meals). 05/02/2017 at Unknown time ??? insulin glargine (LANTUS) 100 unit/mL SubQ Solution Subcutaneous (Inject under the skin) 28 Units every evening. 10 mL 12 Taking Differently at Unknown time ??? insulin syringe,safetyneedle 1 mL 30 gauge x 07/21 Misc Syringe 1 Syringe by Mis.(Non-Drug; Combo Route) route nightly. 30 Syringe 1 Taking at Unknown time ??? isosorbide mononitrate (IMDUR) 60 mg Oral Tablet Sustained Release 24 hr TAKE ONE TABLET BY MOUTH ONCE DAILY 30 Tab 1 Taking at Unknown time ??? lisinopril (PRINIVIL;ZESTRIL) 5 mg Oral Tablet Take 5 mg by mouth daily. Taking at Unknown time ??? metFORMIN (GLUCOPHAGE) 500 mg Oral Tablet Take 500 mg by mouth 2 times daily. 05/02/2017 at Unknown time ??? metoprolol (LOPRESSOR) 50 mg Oral Tablet TAKE 1 TABLET BY MOUTH 2 TIMES DAILY 60 Tab 2 05/02/2017 at Unknown time ??? NIFEdipine (PROCARDIA XL) 90 mg Oral Tablet Extended Rel 24 hr Take 1 Tab by mouth daily. 30 Tab 1 Taking at Unknown time ??? pantoprazole (PROTONIX) 40 mg Oral Tablet, Delayed Release (E.C.) TAKE ONE TABLET BY MOUTH ONCEDAILY 30 Tab 6 Taking at Unknown time ??? RANEXA 1,000 mg Oral Tablet Sustained Release 12 hr TAKE ONE TABLET BY MOUTH EVERY 12 HOURS 60 Tab 0 Taking at Unknown time ??? risperiDONE (RISPERDAL) 2 mg Oral Tablet Take 2 mg by mouth nightly. 05/01/2017 at Unknown time ??? sertraline (ZOLOFT) 100 mg Oral Tablet Take 200 mg by mouth daily. Reported on 08/12/2016 05/01/2017 at Unknown time ??? acetaminophen 325 mg Oral Tab Take 650 mg by mouth every 4 hours as needed for Pain. Taking ??? nitroGLYCERIN (NITROSTAT) 0.4 mg SL Tablet, Sublingual Place 1 Tab under the tongue every 5 minutes as needed for Chest pain. 20 Tab 2 Taking Allergies Allergen Reactions ??? Compazine [Prochlorperazine Edisylate] ??? Dwight ??? Pentazocine Hcl ??? Prochlorperazine Maleate ??? [...] No Known Problems Son ??? Seizures Daughter REVIEW OF SYSTEMS. SEE HPI. Diet: eats three meals a day OBJECTIVE Physical Exam: Patient Vitals for the past 24 hrs: BP Temp Temp src Pulse Resp SpO2 Height Weight 05/02/17 1716 135/67 98.4 ??F (36.9 ??C) Oral 64 18 99 % 5' 8.5 (1.74 m) 225 lb (102.1 kg) Body mass index is 33.71 kg/m??. Body surface area is 2.16 meters squared. ?? General: Faby appears alert, obese, in no acute distress and flat affect ?? Skin: warm, well perfused and no rashes ?? Head: Normocephalic, without obvious abnormality, atraumatic ?? Eyes: Pupils equal, round and reactive to light and Extraocular movements intact ?? ENT: ENT exam normal, mucous membranes moist ?? Neck: neck is supple and there is full active range of motion ?? Breast: not examined ?? Lungs: clear to auscultation bilaterally ?? Cardiac: heart tones regular ?? Abdomen: abdomen is soft, nontender, and nondistended without hepatosplenomegaly or masses, normoactive bowel sounds are present, there are no peritoneal signs ?? G-TUBE/PEG: NONE. ?? Back: symmetric, no curvature. ROM normal. No CVA tenderness. ?? : not examined ?? Lymphadenopathy: normal and no adenopathy noted ?? Musculoskeletal/Ext: normal muscle bulk with no contractures or deformities, L. Sided weakness. ?? Neurological: L. Sided weakness, FOUZIA, reflexes normal and symmetric, no tremors, cogwheeling or rigidity noted and Babinski response negative ?? CLAY CATHETER: NONE. Labs: CBC: No results found for: WBC, RBC, HGB, HCT, MCV, MCHC, RDW, PLT, MPV BMP: No results found for: NA, K, CL, CO2, BUN, LABALBU, CREATININE, CALCIUM, GFRAFRAM, GFRNONAFRAM, GLU No results found for: ALKPHOS, ALT, AST, PROT, LABBILI, BILIDIR, IBILI, LABALBU No results found for: SPECGRAV, UAPROTEIN, BLOODU, NITRITE, LEUKOCYTESUR, WBCUA, RBCUA Radiology: Assessment/Plan: ??? Essential hypertension Controlled Furosemide Lisinopril, metoprolol asa Monitor trends. ??? 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 (HCC) Accucheck/ssi A1c -pending. Low carb diet Glucophage, glipizide, lantus monitor ??? Morbid obesity with BMI of 45.0-49.9, adult (HCC) Elevate hob Oxygen continuous GINA risk ??? Chronic diastolic CHF (congestive heart failure) (HCC) EF 65% 04/12/2017 w/ mild RV dilation Decr. Furosemide. No edema Pt. Needs afterload reduction. Continue w/ lisinopril ??? Hemiparesis affecting left side as late effect of stroke (HCC) ??? acute on chronic Metabolic encephalopathy D/t htn, DM, morbid obesity, chronic diastolic CHF ??? Depression with suicidal ideation ??? Schizoaffective disorder, depressive type (HCC) ??? Mood disorder (HCC) Check labs. Management per psych. Thank you for consult Marcio Acosta DO 05/03/2017 documented in this encounter ED Notes * Uriel Mauricio, OIL EXPELLER OPERATOR - 05/02/2017 5:57 PM EST Pt is a 66 yr old female with a history of schizoaffective disorder, depressive type. She presents to the ED via police after telling staff at [facility] that she wanted to kill herself. She has a plan to wait until dark, wear dark clothing and sit on the train track until she's struck and killed. Pt reports that she feels depressed because her boyfriend of 2 years (also a resident) left her for another male resident. She says she's in love with someone she can't have and this makes her want to kill herself. She reports that she's felt suicidal for months, but recently thought of this plan. Pt resides at [facility], says she's lived there 3 years next month. She reports that she hasn't seen or spoken to her children or any family since she moved there from [place]. Pt reports that she previously lived with her sister in [place]. Pt reports that she's had 3 prior admissions, most recently at [facility] in 2016 for SI. She reports that she was hospitalized at [facility] twice prior to moving here, both after suicide attempts. She reported that once she overdosed on her sister's medications. She reported that her sister hada lot of medical issues and was on morphine. Pt reports that her sister came home to find her. She reports that she also attempted suicide by cutting her wrist. Pt reports she sees a therapist at [facility] every two weeks, next appt is scheduled for this week. Pt is A&Ox3. She appears somewhat cognitively delayed. She presents with euthymic mood and appropriate affect. She speaks very matter of factly about her plan for suicide. She reports that she does want to act on this plan. Patient denies HI/AVHs. She reports that she's taking her meds and thatstaff keep them for her. She reports a normal appetite. She reports difficulty sleeping all the time. Pt is unable to contract for safety. She reports that she does want to act on the plan to sit on the train track in dark clothing at night. She says it will take a little while to walk there because she knows not to take her walker because then someone would see her. Pt says there is a train track [place] she [place]. Recommendation/Plan: admission to [facility] under Dr. Gavin Consulted: Dr. Gonzales Intake: [place] * Beni Gonzales MD - 05/02/2017 4:46 PM EST No chief complaint on file. History provided by: Patient and medical records 66 year old female presents to the ED by police for a psychiatric evaluation. History of diabetes mellitus, depression, and CA. Previous hospital admissions for depression with last on 04/10/17. Patient states she has been having thoughts of harming herself for several months. Reports suicide plan to dress in dark clothes and go sit in front of a train . Denies visual or auditory hallucinations, sudden weight loss, or any other associated symptoms. There was no care prior to arrival stated. Patient History Allergies Allergen Reactions ??? Compazine [Prochlorperazine Edisylate] ??? Dwight ??? Pentazocine Hcl ??? Prochlorperazine Maleate ??? [...] meals). 04/04/15 Campbell Huston MD fUROsemide (LASIX) 40 mg Oral Tablet Take 1 Tab by mouth daily. 02/03/17 Sharee Segovia ARNP glipiZIDE (GLUCOTROL) 10 mg Oral Tablet Take 10 mg by mouth 2 times daily (with meals). Provider, Historical insulin glargine (LANTUS) 100 unit/mL SubQ Solution Subcutaneous (Inject under the skin) 28 Units every evening. 02/23/17 Eric Gavin MD insulin syringe,safetyneedle 1 mL 30 gauge x 07/21 Misc Syringe 1 Syringe by Misc.(Non-Drug; Combo Route) route nightly. 08/04/16 Joanna Pierce MD isosorbide mononitrate (IMDUR) 60 mg Oral Tablet Sustained Release 24 hr TAKE ONE TABLET BY MOUTH ONCE DAILY 03/24/17 Joanna Pierce MD lisinopril (PRINIVIL;ZESTRIL) 5 mg Oral Tablet Take 5 mg by mouth daily. Provider, Historical metFORMIN (GLUCOPHAGE) 500 mg Oral Tablet Take 500 mg by mouth 2 times daily. Provider, Historical metoprolol (LOPRESSOR) 50 mg Oral Tablet TAKE 1 TABLET BY MOUTH 2 TIMES DAILY 01/26/17 Joanna Pierce MD NIFEdipine (PROCARDIA XL) 90 mg Oral Tablet Extended Rel 24 hr Take 1 Tab by mouth daily. 06/24/16 Campbell Huston MD nitroGLYCERIN (NITROSTAT) 0.4 mg SL Tablet, Sublingual Place 1 Tab under the tongue every 5 minutesas needed for Chest pain. 11/19/16 Sharee Segovia ARNP pantoprazole (PROTONIX) 40 mg Oral Tablet, Delayed Release (E.C.) TAKE ONE TABLET BY MOUTH ONCE DAILY 11/26/16 Jonana Pierce MD RANEXA 1,000 mg Oral Tablet Sustained Release 12 hr TAKE ONE TABLET BY MOUTH EVERY 12 HOURS 04/08/17 Joanna Pierce MD risperiDONE (RISPERDAL) 2 mg Oral Tablet Take 2 mg by mouth nightly. Provider, Historical sertraline (ZOLOFT) 100 mg Oral Tablet Take 200 mg by mouth daily. Reported on 08/12/2016 Provider, Historical Past Medical History: Past Medical History: Diagnosis Date ??? Atrial flutter (HCC) EPS, AFL Ablation on 12/31/[address] Tee ??? CHF (congestive heart failure) (HCC) ??? COPD (chronic obstructive pulmonary disease) (HCC) ??? DDD (degenerative disc disease) ??? Diabetes mellitus (HCC) ??? Hypertension ??? CA (myocardial infarction) ??? RLS (restless legs syndrome) ??? Schizoaffective disorder, depressive type (HCC) 02/19/2017 ??? Stroke (HCC) 2010 left side affected ??? Suicide attempt ??? Urinary incontinence ??? Yeast infection recurrent [...] Systems Review of Systems Constitutional: Negative for chills, fever and unexpected weight change. HENT: Negative. Eyes: Negative. Respiratory: Negative for cough and shortness of breath. Cardiovascular: Negative for chest pain, palpitations and leg swelling. Gastrointestinal: Negative for abdominal pain, diarrhea, nausea and vomiting. Genitourinary: Negative for dysuria and frequency. Musculoskeletal: Negative. Skin: Negative for rash. Neurological: Negative. Psychiatric/Behavioral: Positive for suicidal ideas. Negative for hallucinations. All other systems reviewed and are negative. Physical Exam Physical Exam Constitutional: She is oriented to person, place, and time. She appears well- developed and well-nourished. No distress. HENT: Head: Normocephalic and atraumatic. Mouth/Throat: Oropharynx is clear and moist. Eyes: Conjunctivae are normal. Neck: Neck supple. Cardiovascular: Normal rate, regular rhythm and normal heart sounds. Exam reveals no gallop and no friction rub. No murmur heard. Pulmonary/Chest: Effort normal and breath sounds normal. No respiratory distress. Abdominal: She exhibits no distension. Musculoskeletal: She exhibits no edema. Neurological: She is alert and oriented to person, place, and time. Skin: Skin is warm and dry. No rash noted. Psychiatric: She has a normal mood and affect. Nursing note and vitals reviewed. Procedures None Radiology/EKG/Labs: Labs Reviewed GLUCOSE METER POC - Abnormal; Notable for the following: Result Value Glucose Meter POC 127 (*) All other components within normal limits ALCOHOL MEDICAL - Normal DRUGS OF ABUSE, SCREEN ONLY, URINE Narrative: [...] vaginal pool/amniotic fluid could cause erroneous results. ED Course: Appropriate laboratory and radiology studies reviewed Patient is placed on a 72 hour hold. She will be admitted to the geriatric behavioral health unit under Dr. Gavin. ED Clinical Impression: 1. Depression with suicidal ideation Critical Care time N/A Condition at Discharge/Transfer from Department: Stable This chart was completed using voice recognition technology and may contain unintended errors Claire Olivares Scribe, am scribing for and in the presence of Beni Calderón MD . Claire Youssef Scribe 05/02/17 1700 Beni Olivares MD, personally performed the services described in this documentation, as scribed byClaire , in my presence and it is accurate and complete. Beni Gonzales MD 05/02/17 1658 documented in this encounter Miscellaneous Notes * Plan of Care - Alessandra Champion RN - 05/11/2017 2:34 PM EST Problem: Suicidal thoughts with plan or attempt Goal: STG Patient will make no attempt to harm self during hospitalization Outcome: Progressing Pt reports no thoughts of suicidal thoughts at present Problem: Prevention: Skin Integrity - 76 For Stage 1 Pressure Ulcer or a Trace Scale Score of 18 or less Goal: Skin remains intact Outcome: Progressing Wound Care Protocol * Utilization Review Notes - Candace Rojas RN - 05/10/2017 8:24 AM EST SEAFOOD CLERK ON BH INPT ORDER ON CHART FOR Depression with suicidal ideation PSYCH MD NOTE 3/4: Subjective: I feel better The patient still up and Ativan last night for restlessness, the patient stated about not having thoughts of suicide while in the hospital but she may be having thoughts of suicide after she is discharged. The patient clearly shows personality disorder, the patient probably uses statements of suicide as attention seeking behavior. The patient denies auditory and visual hallucinations, the patient does not look internally preoccupied. Gradual improvement is noted. Mental Status Exam: Estimated Reliability: Unreliable Appearance: Fair Dress: Appropriate Psychomotor Activity: Fidgety and Restless Attitude: Guarded and Evasive Responsiveness: Alert Speech: Slow Mood: Anxious Affect: Constricted Thought Process: Illogical Thought Content: No Disturbances Perception: No Disturbances Orientation: Person and Place Memory: Deficit Insight: Does not understand problem Judgement: Poor Abnormal Involuntary Movement: Absent Assessment: Provisional Diagnosis: [place] I:Schizoaffective disorder, depressive type??diagnosis provisional [place] II: intellectual ??disability, mild Borderline personality disorder [place] III: ??see PMH/PSH ? [place] IV: severe [place] V: 20 Plan: Will continue hospitalization as the least restrictive means for providing care. The patient stated that about not having thoughts of suicide, but the patient stated about being possibly suicidal when she is discharged. The patient denies auditory and visual hallucinations, over the patient is compliant and cooperative. Will continue management, will follow, will observe for gradual resolution for suicidality. I anticipate discharge in the next couple of days. SW NOTE 3/4: SW met with pt who is alert and oriented x4. She is pleasant and cooperative with interaction. Stated mood is good and her affect brightens with interaction. Pt talked with journalists and other writers and another pt about pets and living arrangements. She talked about her cat, living at the [facility], and her friend, [place]. Pt was appropriate in conversation and interaction with other patient. RN NOTES 3/4: Patient slept well throughout evening. PRN Ativan administered for agitation at 2000 and 0045 and was found to be effective in reducing anxiety and aiding in sleep. VSS. No concerns at this time During assessment patient states that her anxiety is a 10/10 and Depression is 9/10, requesting PRNAtivan for anxiety symptoms. When asked if she was experiencing suicidal thoughts, she stated that she was but that they are improving. Patient states that she is anxious about getting out of here so that she can go visit corazon Potts of [her] life and tell him how I feel. Patient does not have a plan for SI at this time Problem: Suicidal thoughts with plan or attempt Goal: LTG Not demonstrate or verbalize active suicide plan by time of discharge. Outcome: Not Progressing Pt denies suicidal thoughts today. However, pt will hurt herself upon discharged. No specific plan. Goal: LTG Demonstrate ability to recognize, accept and cope with symptoms of depression by time of discharge. Outcome: Not Progressing Pt rated her depression and anxiety 10/10. Goal: STG Patient will actively participate in groups and attend meetings per unit schedule. Outcome: Progressing Pt joined the group activity at 1700. LAMICTAL 25 MG PO BID ATIVAN 0.5 MG PO EVERY 4 HRS PRN X 2 ZOLOFT 200 MG PO DAILY TRAZODONE 200 MG PO NIGHTLY ?? * Plan of Care - Holly Anderson RN - 05/09/2017 5:37 PM EST Problem: Suicidal thoughts with plan or attempt Goal: LTG Not demonstrate or verbalize active suicide plan by time of discharge. Outcome: Not Progressing Pt denies suicidal thoughts today. However, pt will hurt herself upon discharged. No specific plan. Goal: LTG Demonstrate ability to recognize, accept and cope with symptoms of depression by time of discharge. Outcome: Not Progressing Pt rated her depression and anxiety 10/10. Goal: STG Patient will actively participate in groups and attend meetings per unit schedule. Outcome: Progressing Pt joined the group activity at 1700. * Plan of Care - Joanna Schmidt RN - 05/08/2017 10:03 PM EST Problem: Safety: Fall Risk Goal: Patient will remain free of falls and injury Outcome: Progressing Patient oriented toroom and unit. In agreement with plan of care * Plan of Care - Holly Anderson RN - 05/08/2017 6:19 PM EST Problem: Suicidal thoughts with plan or attempt Goal: LTG Not demonstrate or verbalize active suicide plan by time of discharge. Outcome: Not Progressing Pt is still verbalized active suicide plan upon discharge but no specific plan this time. Goal: LTG Demonstrate ability to recognize, accept and cope with symptoms of depression by time of discharge. Outcome: Not Progressing Pt rated both her depression and anxiety 9/10 . Goal: STG Patient will make no attempt to harm self during hospitalization Outcome: Progressing Pt denies to harm herself during hospitalization. Goal: STG Patient will actively participate in groups and attend meetings per unit schedule. Outcome: Not Progressing Pt was not actively participating in groups activity. * Plan of Care - Dane Sanchez RN - 05/08/2017 1:47 AM EST Problem: Safety: Fall Risk Goal: Patient will remain free of falls and injury Outcome: Progressing All safety checks are in place, bed in lowest position, wheels locked and call light within reach. Bed alarm is activated. We will continue to monitor. * Utilization Review Notes - Candace Rojas RN - 05/07/2017 8:13 AM EST [employer] CLERK ON UNIT INPT ORDER ON CHART FOR Depression with suicidal ideation PSYCH MD NOTE 05/06: The patient was seen for the follow-up. The patient still stated about having thoughts of suicide, the patient still reports depression and anxiety. The patient denies auditory andvisual hallucinations, the patient does not look internally preoccupied. The patient still was talking about her boyfriend today. Her insight and judgment is very limited, the patient also most likely has borderline personality disorder in addition to her mood disorder. The patient is not very insightful in terms of her stress management abilities. 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 AM EST us Eric Gavin MD POINT OF CARE TEST ORDERABLES Fi nal Result Performing Organization Address [facility] [place] [address] * (ABNORMAL) GLUCOSE METER POC (05/08/2017 5:17 PM EST) Glucose Meter POC 134(H) 70 - 100 mg/dL 05/08/2017 5:18 PM EST [facility] Sample Type Capillary 05/08/2017 5:18 PM EST [facility] Patient Status Non-Critical Patient 05/08/2017 5:18 PM EST [facility] Blood BLOOD SPECIMEN / Unknown 05/08/2017 5:17 PM EST 05/08/2017 5:18 PM EST us Eric Gavin MD POINT OF CARE TEST [place] [address] * (ABNORMAL) GLUCOSE METER POC (05/08/2017 12:35 PM EST) Glucose Meter POC 166(H) 70 - 100 mg/dL 05/08/2017 12:36 PM EST [facility] Sample Type Capillary 05/08/2017 12:36 PM EST [facility] Patient Status Non-Critical Patient 05/08/2017 12:36 PM EST [facility] Blood BLOOD SPECIMEN / Unknown 05/08/2017 12:35 PM EST 05/08/2017 12:36 PM EST us Eric Gavin MD POINT OF CARE TEST ORDERABLES Fi nal Result Performing Organization Address City/[facility] Co de Phone Number [facility] [address] [place] [address] * GLUCOSE METER POC (05/08/2017 8:10 AM EST) Glucose Meter POC 73 70 - 100 mg/dL 05/08/2017 8:11 AM EST [facility] Sample Type Capillary 05/08/2017 8:11 AM EST [facility] Patient Status Non-Critical Patient 05/08/2017 8:11 AM EST [facility] Blood BLOOD SPECIMEN / Unknown 05/08/2017 8:10 AM EST 05/08/2017 8:11 AM EST us Eric Gavin MD POINT OF CARE TEST ORDERABLES Fi nal Result Performing Organization Address [facility] [place] [address] * (ABNORMAL) GLUCOSE METER POC (05/07/2017 9:38 PM EST) Glucose Meter POC 108(H) 70 - 100 mg/dL 05/07/2017 9:40 PM EST [facility] Sample Type Capillary 05/07/2017 9:40 PM EST [facility] Patient Status Non-Critical Patient 05/07/2017 9:40 PM EST [facility] Blood BLOOD SPECIMEN / Unknown 05/07/2017 9:38 PM EST 05/07/2017 9:40 PM EST us Eric Gavin MD POINT OF CARE TEST ORDERABLES Fi nal Result [facility] [address] [place] [address] * (ABNORMAL) GLUCOSE METER POC (05/07/2017 4:54 PM EST) Glucose Meter POC 116(H) 70 - 100 mg/dL 05/07/2017 4:55 PM EST [facility] Sample Type Capillary 05/07/2017 4:55 PM EST [facility] Patient Status Non-Critical Patient 05/07/2017 4:55 PM EST [facility] Blood BLOOD SPECIMEN / Unknown 05/07/2017 4:54 PM EST 05/07/2017 4:55 PM EST us Eric Gavin MD POINT OF CARE TEST ORDERABLES Fi nal Result [facility] [address] [place] [address] * (ABNORMAL) GLUCOSE METER POC (05/07/2017 12:30 PM EST) Glucose Meter POC 141(H) 70 - 100 mg/dL 05/07/2017 12:31 PM EST [facility] Sample Type Capillary 05/07/2017 12:31 PM EST [facility] Patient Status Non-Critical Patient 05/07/2017 12:31 PM EST [facility] Blood BLOOD SPECIMEN / Unknown 05/07/2017 12:30 PM EST 05/07/2017 12:31 PM EST us Eric Gavin MD POINT OF CARE TEST ORDERABLES Fi nal Result [facility] [address] [place] [address] * (ABNORMAL) GLUCOSE METER POC (05/07/2017 8:26 AM EST) Glucose Meter POC 112(H) 70 - 100 mg/dL 05/07/2017 8:27 AM EST [facility] Sample Type Capillary 05/07/2017 8:27 AM EST [facility] Patient Status Non-Critical Patient 05/07/2017 8:27 AM EST [facility] Blood BLOOD SPECIMEN / Unknown 05/07/2017 8:26 AM EST 05/07/2017 8:27 AM EST us Eric Gavin MD POINT OF CARE TEST ORDERABLES Fi nal Result Performing Organization Address [facility]/[place] [address] * (ABNORMAL) GLUCOSE METER POC (05/06/2017 8:41 PM EST) Glucose Meter POC 201(H) 70 - 100 mg/dL 05/06/2017 8:42 PM EST [facility] Sample Type Capillary 05/06/2017 8:42 PM EST [facility] Patient Status Non-Critical Patient 05/06/2017 8:42 PM EST [facility] Blood BLOOD SPECIMEN / Unknown 05/06/2017 8:41 PM EST 05/06/2017 8:42 PM EST us Eric Gavin MD POINT OF CARE TEST ORDERABLES Fi nal Result Performing Organization Address [facility] [place] [address] * (ABNORMAL) GLUCOSE METER POC (05/06/2017 5:05 PM EST) Glucose Meter POC 129(H) 70 - 100 mg/dL 05/06/2017 5:06 PM EST [facility] Sample Type Capillary 05/06/2017 5:06 PM EST [facility] Patient Status Non-Critical Patient 05/06/2017 5:06 PM EST [facility] Blood BLOOD SPECIMEN / Unknown 05/06/2017 5:05 PM EST 05/06/2017 5:06 PM EST us Eric Gavin MD POINT OF CARE TEST ORDERABLES Fi nal Result Performing Organization Address City/[facility]/[place] [address] * (ABNORMAL) GLUCOSE METER POC (05/06/2017 12:05 PM EST) Glucose Meter POC 185(H) 70 - 100 mg/dL 05/06/2017 12:06 PM EST [facility] Sample Type Capillary 05/06/2017 12:06 PM EST [facility] Patient Status Non-Critical Patient 05/06/2017 12:06 PM EST [facility] Blood BLOOD SPECIMEN / Unknown 05/06/2017 12:05 PM EST 05/06/2017 12:06 PM EST us Eric Gavin MD POINT OF CARE TEST ORDERABLES Fi nal Result Performing Organization Address [facility] [place] [address] * (ABNORMAL) GLUCOSE METER POC (05/06/2017 8:34 AM EST) Glucose Meter POC 167(H) 70 - 100 mg/dL 05/06/2017 8:35 AM EST [facility] Sample Type Capillary 05/06/2017 8:35 AM EST [facility] Patient Status Non-Critical Patient 05/06/2017 8:35 AM EST [facility] Blood BLOOD SPECIMEN / Unknown 05/06/2017 8:34 AM EST 05/06/2017 8:35 AM EST us Eric Gavin MD POINT OF CARE TEST ORDERABLES Fi nal Result Performing Organization Address [facility] [place] [address] * (ABNORMAL) GLUCOSE METER POC (05/05/2017 9:10 PM EST) Glucose Meter POC 175(H) 70 - 100 mg/dL 05/05/2017 9:11 PM EST [facility] Sample Type Capillary 05/05/2017 9:11 PM EST [facility] Patient Status Non-Critical Patient 05/05/2017 9:11 PM EST [facility] Blood BLOOD SPECIMEN / Unknown 05/05/2017 9:10 PM EST 05/05/2017 9:11 PM EST us Eric Gavin MD POINT OF CARE TEST ORDERABLES Fi nal Result Performing Organization Address City/[facility]/ZIP Co de Phone Number [facility] [address] [place] [address] * (ABNORMAL) GLUCOSE METER POC (05/05/2017 4:50 PM EST) Glucose Meter POC 136(H) 70 - 100 mg/dL 05/05/2017 4:50 PM EST [facility] Sample Type Capillary 05/05/2017 4:50 PM EST [facility] Patient Status Non-Critical Patient 05/05/2017 4:50 PM EST [facility] Blood BLOOD SPECIMEN / Unknown 05/05/2017 4:50 PM EST 05/05/2017 4:50 PM EST us Eric Gavin MD POINT OF CARE TEST ORDERABLES Fi nal Result Performing Organization Address [facility] Co de Phone Number [facility] [address] [place] [address] * (ABNORMAL) GLUCOSE METER POC (05/05/2017 11:55 AM EST) Glucose Meter POC 158(H) 70 - 100 mg/dL 05/05/2017 11:56 AM EST [facility] Sample Type Capillary 05/05/2017 11:56 AM EST [facility] Patient Status Non-Critical Patient 05/05/2017 11:56 AM EST [facility] Blood BLOOD SPECIMEN / Unknown 05/05/2017 11:55 AM EST 05/05/2017 11:56 AM EST us Eric Gavin MD POINT OF CARE TEST ORDERABLES Fi nal Result Performing Organization Address City/[facility]/ZIP Co de Phone Number [facility] [address] [place] [address] * GLUCOSE METER POC (05/05/2017 8:08 AM EST) Glucose Meter POC 73 70 - 100 mg/dL 05/05/2017 8:09 AM EST [facility] Sample Type Capillary 05/05/2017 8:09 AM EST [facility] Patient Status Non-Critical Patient 05/05/2017 8:09 AM EST [facility] Blood BLOOD SPECIMEN / Unknown 05/05/2017 8:08 AM EST 05/05/2017 8:09 AM EST us Eric Gavin MD POINT OF CARE TEST ORDERABLES Fi nal Result Performing Organization Address City/[facility]/[place] [address] * (ABNORMAL) GLUCOSE METER POC (05/04/2017 9:01 PM EST) Glucose Meter POC 110(H) 70 - 100 mg/dL 05/04/2017 9:02 PM EST [facility] Sample Type Capillary 05/04/2017 9:02 PM EST [facility] Patient Status Non-Critical Patient 05/04/2017 9:02 PM EST [facility] Blood BLOOD SPECIMEN / Unknown 05/04/2017 9:01 PM EST 05/04/2017 9:02 PM EST us Eric Gavin MD POINT OF CARE TEST ORDERABLES Fi nal Result Performing Organization Address City/[facility]/[place] [address] * (ABNORMAL) GLUCOSE METER POC (05/04/2017 5:34 PM EST) Glucose Meter POC 105(H) 70 - 100 mg/dL 05/04/2017 5:35 PM EST [facility] Sample Type Capillary 05/04/2017 5:35 PM EST [facility] Patient Status Non-Critical Patient 05/04/2017 5:35 PM EST [facility] Blood BLOOD SPECIMEN / Unknown 05/04/2017 5:34 PM EST 05/04/2017 5:35 PM EST us Eric Gavin MD POINT OF CARE TEST ORDERABLES Fi nal Result Performing Organization Address City/[facility]/[place] [address] * (ABNORMAL) GLUCOSE METER POC (05/04/2017 12:30 PM EST) Glucose Meter POC 203(H) 70 - 100 mg/dL 05/04/2017 12:31 PM EST [facility] Sample Type Capillary 05/04/2017 12:31 PM EST [facility] Patient Status Non-Critical Patient 05/04/2017 12:31 PM EST [facility] Blood BLOOD SPECIMEN / Unknown 05/04/2017 12:30 PM EST 05/04/2017 12:31 PM EST us Eric Gavin MD POINT OF CARE TEST ORDERABLES Fi nal Result Performing Organization Address [facility] [place] [address] * (ABNORMAL) GLUCOSE METER POC (05/04/2017 8:54 AM EST) Glucose Meter POC 127(H) 70 - 100 mg/dL 05/04/2017 8:56 AM EST [facility] Sample Type Capillary 05/04/2017 8:56 AM EST [facility] Patient Status Non-Critical Patient 05/04/2017 8:56 AM EST [facility] Blood BLOOD SPECIMEN / Unknown 05/04/2017 8:54 AM EST 05/04/2017 8:56 AM EST us Eric Gavin MD POINT OF CARE TEST ORDERABLES Fi nal Result Performing Organization Address [facility] [place] [address] * (ABNORMAL) GLUCOSE METER POC (05/03/2017 9:15 PM EST) Glucose Meter POC 110(H) 70 - 100 mg/dL 05/03/2017 9:16 PM EST [facility] Sample Type Capillary 05/03/2017 9:16 PM EST [facility] Patient Status Non-Critical Patient 05/03/2017 9:16 PM EST [facility] Blood BLOOD SPECIMEN / Unknown 05/03/2017 9:15 PM EST 05/03/2017 9:16 PM EST us Eric Gavin MD POINT OF CARE TEST ORDERABLES Fi nal Result Performing Organization Address [facility]/[place] [address] * C DIFF TOXIN DNA (05/03/2017 9:10 PM EST) Pathologist [facility] C Diff Toxin DNA Negative Negative 05/04/2017 7:40 AM EST [facility] Stool SPECIMEN FROM RECTUM / Unknown Collection / Unknown 05/03/2017 9:10 PM EST 05/04/2017 6:09 AM EST Narrative [facility] - 05/04/2017 7:40 AM EST Toxin producing C. difficile target DNA sequences are not detected. This qualitative assay is intended for the detection of Clostridium difficile toxin B gene sequences and for presumptive identification of 027/NAP1/BI strains of toxigenic Clostridium difficile from unformed (liquid or soft) stool specimens in patients suspected of having Clostridium difficile infection (CDI). This assay utilizes real time PCR on the Lumate GeneXHTP Infinity, and its performance has been verified by the [facility]. A negative result does not rule out the presence of the Clostridium difficile in concentrations below the limit of detection for the assay. us Marcio Acosta DO MICROBIOLOGY - GENERAL ORDERA BLES Final Result Performing Organization Address [facility] [place] [address] * (ABNORMAL) URINE CULTURE (NO STAIN) (05/03/2017 7:48 PM EST) Pathologist [facility] Culture Positive Growth(A) 05/05/2017 11:29 AM EST [facility] Culture >[id number] CFU/mL Escherichia coli SUSCEPTIBI LITY RESULT 05/05/2017 11:29 AM EST [facility] Urine 05/03/2017 7:48 PM EST 05/03/2017 8:19 PM EST Narrative Organism Antibiotic Method Susceptibility Escherichia coli [...] ug/mL: Susceptible Escherichia coli Gentamicin SUSCEPTIBILITY RESULT <=1 ug/mL: Susceptible Escherichia coli Imipenem SUSCEPTIBILITY RESULT [...] tho xazole SUSCEPTIBILITY RESULT <=2/38 ug/mL: Susceptible us Marcio Cholera DO MICROBIOLOGY - GENERAL [place] [address] * (ABNORMAL) URINALYSIS (05/03/2017 7:48 PM EST) UA Color Yellow 05/03/2017 8:00 PM EST [facility] UA Appear Hazy(A) Clear 05/03/2017 8:00 PM EST [facility] UA Glucose Negative Negative mg/dL 05/03/2017 8:00 PM EST [facility] UA Ketones Negative Negative mg/dL 05/03/2017 8:00 PM EST [facility] UA Blood Negative Negative 05/03/2017 8:00 PM EST [facility] UA pH 6.0 5.0 - 8.0 pH 05/03/2017 8:00 PM EST [facility] UA Protein Negative Negative mg/dL 05/03/2017 8:00 PM [facility] UA Urobilinogen Normal <=1 E.U./dL 05/03/19 18 8:00 PM [facility] UA Nitrite Positive(A) Negative 05/03/2017 8:00 PM [facility] UA Leuk Est Large(A) Negative 05/03/2017 8:00 PM [facility] UA Spec Grav 1.011 1.001 - 1.035 no units 05/03/2017 8:00 PM [facility] Comment: Reference range valid for random specimens only. UA WBC 96(H) 0 - 4 /HPF 05/03/2017 8:00 PM [facility] UA RBC 5(H) 0 - 3 /HPF 05/03/2017 8:00 PM [facility] UA Squam Epi Few /LPF 05/03/2017 8:00 PM [facility] UA Bacteria 2+(A) Negative /HPF 05/03/2017 8:00 PM [facility] UA Hyal Cast 1 0 - 2 /LPF 05/03/2017 8:00 PM [facility] Urine 05/03/2017 7:48 PM EST 05/03/2017 7:48 PM EST us Marcio Acosta DO URINE ORDERABLES Final Result [facility] [address] [place] [address] * GLUCOSE METER POC (05/03/2017 5:12 PM EST) [facility] Glucose Meter POC 81 70 - 100 mg/dL 05/03/2017 5:13 PM EST [facility] Sample Type Capillary 05/03/2017 5:13 PM EST [facility] Patient Status Non-Critical Patient 05/03/2017 5:13 PM EST [facility] Blood BLOOD SPECIMEN / Unknown 05/03/2017 5:12 PM EST 05/03/2017 5:13 PM EST us Eric Gavin MD POINT OF CARE TEST ORDERABLES Fi nal Result Performing Organization Address City/[facility]/ZIP Co de Phone Number [facility] [address] [place] [address] * GLUCOSE METER POC (05/03/2017 1:01 PM EST) Glucose Meter POC 92 70 - 100 mg/dL 05/03/2017 1:02 PM EST [facility] Sample Type Capillary 05/03/2017 1:02 PM EST [facility] Patient Status Non-Critical Patient 05/03/2017 1:02 PM EST [facility] Blood BLOOD SPECIMEN / Unknown 05/03/2017 1:01 PM EST 05/03/2017 1:02 PM EST us Eric Gavin MD POINT OF CARE TEST ORDERABLES Fi nal Result Performing Organization Address [facility] [place] [address] * (ABNORMAL) GLUCOSE METER POC (05/03/2017 8:07 AM EST) Glucose Meter POC 151(H) 70 - 100 mg/dL 05/03/2017 8:50 AM EST [facility] Sample Type Capillary 05/03/2017 8:50 AM EST [facility] Patient Status Non-Critical Patient 05/03/2017 8:50 AM EST [facility] Blood BLOOD SPECIMEN / Unknown 05/03/2017 8:07 AM EST 05/03/2017 8:50 AM EST us Eric Gavin MD POINT OF CARE TEST ORDERABLES Fi nal Result Performing Organization Address City/[facility]/ZIP Co de Phone Number [facility] [address] [place] [address] * FOLATE LEVEL (05/03/2017 7:19 AM EST) Folate 10.15 4.50 - 37.30 ng/mL 05/03/2017 10:53 AM EST [facility] Blood Venipuncture / Unknown 05/03/2017 7:19 AM EST 05/03/2017 7:43 AM EST Marcio Acosta DO CHEMISTRY ORDERABLES Final Re sult Performing Organization Address [facility]/ZIP Co de Phone Number [facility] [address] [place] [address] * VITAMIN B12 LEVEL (05/03/2017 7:19 AM EST) Pathologist [facility] Vitamin B12 382 211 - 946 pg/mL 05/03/2017 10:52 AM EST [facility] Blood Venipuncture / Unknown 05/03/2017 7:19 AM EST 05/03/2017 7:43 AM EST Marcio Acosta DO CHEMISTRY ORDERABLES Final Re sult Performing Organization Address [facility] Co de Phone Number [facility] [address] [place] [address] * THYROID STIMULATING HORMONE (05/03/2017 7:19 AM EST) Pathologist [facility] TSH 2.900 0.270 - 4.200 mcIU/mL 05/03/2017 10:42 AM EST [facility] Blood Venipuncture / Unknown 05/03/2017 7:19 AM EST 05/03/2017 7:43 AM EST Marcio Dave DO CHEMISTRY ORDERABLES Final Re sult Performing Organization Address [facility] Co de Phone Number [facility] [address] [place] [address] * (ABNORMAL) CBC WITH DIFF (05/03/2017 7:19 AM EST) [facility] WBC 8.6 4.0 - 11.0 x10(3)/mcL 05/03/2017 7:57 AM EST [facility] RBC 3.70(L) 3.80 - 5.10 x10(6)/mcL 05/03/2017 7:57 AM EST [facility] Hgb 11.4(L) 12.0 - 15.6 gm/dL 05/03/2017 7:57 AM EST [facility] Hct 33.3(L) 35.7 - 45.9 % 05/03/2017 7:57 AM [facility] MCV 90.2 82.5 - 99.8 fL 05/03/2017 7:57 AM [facility] MCH 30.8 27.0 - 34.3 pg 05/03/2017 7:57 AM [facility] MCHC 34.1 32.1 - 35.3 gm/dL 05/03/2017 7:57 AM [facility] RDW 14.4 11.5 - 15.0 % 05/03/2017 7:57 AM [facility] Platelet 214 144 - 423 x10(3)/mcL 05/03/2017 7:57 AM [facility] MPV 9.9 6.8 - 10.8 fL 05/03/2017 7:57 AM [facility] Neut Percent 65.4 % 05/03/2017 7:57 AM [facility] Lymph Percent 24.9 % 05/03/2017 7:57 AM [facility] Randolph Percent 6.3 % 05/03/2017 7:57 AM [facility] Eos Percent 2.9 % 05/03/2017 7:57 AM [facility] Baso Percent 0.5 % 05/03/2017 7:57 AM [facility] Neut # 5.6 1.8 - 7.7 x10(3)/mcL 05/03/2017 7:57 AM [facility] Lymph # 2.1 0.6 - 4.8 x10(3)/mcL 05/03/2017 7:57 AM [facility] Randolph # 0.5 0.0 - 1.3 x10(3)/mcL 05/03/2017 7:57 AM [facility] Eos# 0.2 0.0 - 0.5 x10(3)/mcL 05/03/2017 7:57 AM [facility] Baso # 0.0 0.0 - 0.2 x10(3)/mcL 05/03/2017 7:57 AM [facility] Blood VENOUS BLOOD / Unknown Venipuncture / Unknown 05/03/2017 7:19 AM EST 05/03/2017 7:43 AM EST Marcio Cholera DO HEMATOLOGY ORDERABLES Final R esult [facility] [address] [place] [address] * (ABNORMAL) COMPREHENSIVE METABOLIC PANEL (05/03/2017 7:19 AM EST) Sodium 144 136 - 145 mmol/L 05/03/2017 10:42 AM [facility] Potassium 4.1 3.5 - 5.0 mmol/L 05/03/2017 10:42 AM [facility] Chloride 103 98 - 107 mmol/L 05/03/2017 10:42 AM [facility] Total CO2 26 22 - 29 mmol/L 05/03/2017 10:42 AM [facility] Anion Gap 15 7 - 16 mmol/L 05/03/2017 10:42 AM [facility] Calcium 8.6(L) 8.8 - 10.2 mg/dL 05/03/2017 10:42 AM [facility] Glucose Lvl 133(H) 82 - 100 mg/dL 05/03/2017 10:42 AM [facility] BUN 20 8 - 23 mg/dL 05/03/2017 10:42 AM [facility] Creatinine 1.44(H) 0.51 - 1.30 mg/dL 05/03/2017 10:42 AM [facility] Albumin 3.5 3.2 - 4.6 gm/dL 05/03/2017 10:42 AM [facility] Total Protein 6.5 6.4 - 8.3 gm/dL 05/03/2017 10:42 AM [facility] Bili Total 0.2 0.1 - 1.3 mg/dL 05/03/2017 10:42 AM [facility] ALT 10 <=41 IU/L 05/03/2017 10:42 AM [facility] AST 13 <=40 IU/L 05/03/2017 10:42 AM [facility] Alk Phos 135(H) 35 - 104 IU/L 05/03/2017 10:42 AM [facility] GFR Afr Am 44 mL/min/1.7 3 m2 05/03/2017 10:42 AM EST [facility] GFR Non Afr Am 38 mL/min/1.7 3 m2 05/03/2017 10:42 AM EST [facility] Comment: GFR Afr Am and GFR Non Afr Am calculated using CKD-EPI equation. ?? GFR Category ?GFR(mL/min/1.73 m??) ? Kidney Function G1 ?>=90 ?Normal or high G2 ?60-89 ? Mildly decreased G3a ? 45-59 ? Mildly to moderately decreased G3b ? 30-44 ? Moderately to severely decreased G4 ?15-29 ? Severely decreased G5 ?<15 ? Kidney Failure Blood Venipuncture / Unknown 05/03/2017 7:19 AM EST 05/03/2017 7:43 AM EST us Marcio Acosta DO CHEMISTRY ORDERABLES Final Re sult [facility] [address] [place] [address] * HEMOGLOBIN A1C (05/02/2017 8:22 PM EST) Hgb A1C 6.8 <=7.0 % 05/02/2017 8:43 PM EST [facility] Blood VENOUS BLOOD / Unknown Butterfly / Unknown 05/02/2017 8:22 PM EST 05/02/2017 8:25 PM EST Narrative [facility] - 05/02/2017 8:43 PM EST Reference Interval for Hgb A1c Hgb A1c ?Interpretation ? < 6.0 ?Non-Diabetic Range 6.0 - 7.0 ? ADA Therapeutic Target ??> 7.0 ?Action suggested us Eric Gavin MD CHEMISTRY [place] [address] * (ABNORMAL) LIPID PANEL REFLEX (05/02/2017 8:22 PM EST) [facility] Cholesterol 117 <=200 mg/dL 05/02/2017 8:52 PM EST [facility] Comment: < 200 ?Desirable 200 - 239 ? Borderline High >= 240 ?High Triglyceride 203(H) <=150 mg/dL 05/02/2017 8:52 PM EST [facility] Comment: < 150 ? Normal 150 - 199 ?Borderline High 200 - 499 ?High ??>= 500 ? Very High HDL 49 >=40 mg/dL 05/02/2017 8:52 PM EST [facility] Comment: ??> 60 ?Optimal 40 - 60 ?Acceptable ?? < 40 ?Low LDL Calculated 27 <=100 mg/dL 05/02/2017 8:52 PM EST [facility] Non-HDL-C Calculated 68 <=129 mg/dL 05/02/2017 8:52 PM EST [facility] Comment: <130 ?Desirable 130-159 Above Desirable 160-189 Borderline High 190-219 High >= 220 ??Very High Blood VENOUS BLOOD / Unknown Butterfly / Unknown 05/02/2017 8:22 PM EST 05/02/2017 8:25 PM EST us Eric Gavin MD CHEMISTRY ORDERABLES Final Resul t Performing Organization Address City/State/[facility] Co de Phone Number [facility] [address] [place] [address] * DRUGS OF ABUSE, SCREEN ONLY, URINE (05/02/2017 5:33 PM EST) 6 AM (Heroin) Absent Absent 05/02/2017 6:22 PM [facility] Amphetamines Absent Absent 05/02/2017 6:22 PM [facility] Barbiturates Absent Absent 05/02/2017 6:22 PM [facility] Benzodiazepines Absent Absent 8 6:22 PM [facility] Buprenorphine Absent Absent 05/02/2017 6:22 PM [facility] Cannabinoid Metabolite Absent Absent 05/02/2017 6:22 PM [facility] Cocaine Metabolite Absent Absent 2017 6:22 PM [facility] Methadone and Metabolite Absent Absent 05/02/2017 6:22 PM [facility] Opiate Absent Absent 05/02/2017 6:22 PM [facility] Oxycodone Lvl Absent Absent 05/02/2017 6:22 PM [facility] Phencyclidine Absent Absent 05/02/2017 6:22 PM [facility] Creatinine Ur >25.0 mg/dL 05/02/2017 6:22 PM [facility] Comment: Greater than 20: Consistent with valid sample Greater than 2 but less than 20: Possible dilution Less than 2: Questionable valid sample Urine URINE SPECIMEN COLLECTION / Unknown 05/02/2017 5:33 PM EST 05/02/2017 5:35 PM EST Narrative [facility] - 05/02/2017 6:22 PM EST These drug classes have been [...] pool/amniotic fluid could cause erroneous results. ?? Beni Gonzales MD URINE ORDERABLES Final Resu lt Performing Organization Address City/[facility]/[place] [address] * ALCOHOL MEDICAL (05/02/2017 5:18 PM EST) [facility] Alcohol Medical <10 <=10 mg/dL 05/02/2017 5:35 PM EST [facility] Blood VENOUS BLOOD / Unknown Venipuncture / Unknown 05/02/2017 5:18 PM EST 05/02/2017 5:22 PM EST Beni Gonzales MD CHEMISTRY ORDERABLES Final Result Performing Organization Address [facility] [place] [address] * (ABNORMAL) GLUCOSE METER POC (05/02/2017 5:17 PM EST) [facility] Glucose Meter POC 127(H) 70 - 100 mg/dL 05/02/2017 5:18 PM EST [facility] Sample Type Venous 05/02/2017 5:18 PM EST [facility] Patient Status Non-Critica l Patient 05/02/2017 5:18 PM EST [facility] Blood BLOOD SPECIMEN / Unknown 05/02/2017 5:17 PM EST 05/02/2017 5:18 PM EST us Beni Gonzales MD POINT OF CARE TEST ORDERABL ES Final Result [facility] [address] [place] [address] documented in this encounter Visit Diagnoses Diagnosis Schizoaffective disorder, depressive type (HCC)- Primary Schizoaffective disorder, unspecified condition Depression with suicidal ideation Morbid obesity with BMI of 45.0-49.9, adult (HCC) Chronic diastolic CHF (congestive heart failure) (HCC) Essential hypertension Unspecified essential hypertension Hemiparesis affecting left side as late effect of stroke (HCC) Hemiplegia affecting unspecified side, late effect of cerebrovascular disease 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 Metabolic encephalopathy Depression with suicidal ideation Mood disorder (HCC) Unspecified episodic mood disorder Intellectual disability Unspecified intellectual disabilities Diarrhea Acute lower UTI Urinary tract infection, site not specified documented in this encounter Admitting Diagnoses Diagnosis Depression with suicidal ideation documented in this encounter Administered Medications Inactive Administered Medications - up to 1 most recent administrations Medication Order MAR Action Action Date Dose Rate Site acetaminophen (TYLENOL) tablet 650 mg 650 mg, Oral, EVERY 4 HOURS PRN, Starting on 05/02/17 at 1924, Until Wed05/12/17 at 1745, Pain, Fever, Maximum adult dose of acetaminophen is 4000 mg from all sources in 24 hours. Given During Downtime 05/08/2017 10:47 AM EST 650 mg aluminum & magnesium hydroxide-simethicone 200-200-20 mg/5 mL suspension 30 mL 30 mL, Oral, EVERY 2 HOURS PRN, Starting on 05/02/17 at 1924, Until Wed05/12/17 at 1745, Indigestion, Shake well. ARIPiprazole (ABILIFY) tablet 30 mg 30 mg, Oral, DAILY, First dose on 05/02/17 at 1930, Until Discontinued Given 05/12/2017 8:59 AM EST 30 mg aspirin chewable tablet 81 mg 81 mg, Oral, DAILY, First dose on Wed05/03/17 at 0900, Until Discontinued Given 05/12/2017 9:00 AM EST 81 mg atorvastatin (LIPITOR) tablet 20 mg 20 mg, Oral, NIGHTLY, First dose on Wed05/02/17 at 2100, Until Discontinued Given 05/11/2017 8:55 PM EST 20 mg cholestyramine light 4 gram packet 4 g 4 g, Oral, 2 TIMES DAILY, First dose on Wed05/05/17 at 0900, Until Discontinued Given 05/05/2017 9:01 PM EST 4 g dextrose 50 % solution 25 mL 25 mL, Intravenous, PRN, Starting on Wed05/03/17 at 0650, Until Wed05/12/17 at 1745, Low blood sugar, If FSBS less than 70 mg/dl and patient cannot take orally, Check FSBS every 30 minutes and repeat 25 mL of D50 IV push and notify physician if FSBS less than 70 mg/dL VESICANT ferrous sulfate tablet 325 mg 325 mg, Oral, 2 TIMES DAILY WITH MEALS, First dose on Wed05/02/17 at 1930, Until Discontinued Given 05/12/2017 9:01 AM EST 325 mg fluconazole (DIFLUCAN) tablet 150 mg 150 mg, Oral, DAILY, 7 doses, First dose on Wed05/04/17 at 0900, Last dose on Wed05/10/17 at 0900 Given 05/10/2017 10:19 AM EST 150 mg fUROsemide (LASix) tablet 20 mg 20 mg, Oral, DAILY, First dose (after last modification) on Wed05/03/17 at 0900, Until Discontinued Given 05/12/2017 9:02 AM EST 20 mg glipiZIDE (GLUCOTROL) tablet 10 mg 10 mg, Oral, 2 TIMES DAILY WITH MEALS, First dose on Wed05/02/17 at 1930, Until Discontinued Given 05/12/2017 9:02 AM EST 10 mg glucagon (human recombinant) (GLUCAGEN) injection 1 mg 1 mg, Intramuscular, PRN, Starting on Wed05/03/17 at 0650, Until Wed05/12/17 at 1745, Low blood sugar, If FSBS less than 70 mg/dl, patient cannot take orally and without IV access, If patient is without IV access, give Glucagon 1 mg Intramuscularly, insert IV and call physician. hydrOXYzine (VISTARIL) capsule 25 mg 25 mg, Oral, EVERY 6 HOURS PRN, Starting on Wed05/10/17 at 1003, Until Wed05/12/17 at 1745, Anxiety Given 05/11/2017 9:46 PM EST 25 mg insulin aspart U-100 (NovoLOG) injection 1-5 Units 1-5 Units, Subcutaneous, 4 TIMES DAILY WITH MEALS, First dose on Wed05/03/17 at 0800, Until Discontinued, Low dose algorithm: FSBS? Additional Insulin? NPO/Bedtime 121-149 0 units 0 units 150-199 1 units 0 units 200-250 2 units 1 units 251-300 3 units 1 units 301-350 4 units 2 units Greater than 350___5 units call MD _3 units call MD Notify physician if FSBS less than 50 or greater than 350 Do not use NPO dosing If patient receiving TPN or tube feeds. Correction insulin doses must be by at least 3 hours. Waste Sort Code = BKC Given 05/12/2017 12:07 PM EST 2 Units Left Arm insulin glargine (LANTUS) injection 28 Units 28 Units, Subcutaneous, EVERY EVENING (INSULIN), First dose on 05/02/17 at 1930, Until Discontinued, Do not mix with other insulins Waste Sort Code = BKC Given 05/11/2017 6:04 PM EST 28 Units Right Arm isosorbide mononitrate (IMDUR) CR tablet 60 mg 60 mg, Oral, DAILY, First dose on 05/02/17 at 1930, Until Discontinued Given 05/12/2017 9:05 AM EST 60 mg lamoTRIgine (LaMICtal) tablet 25 mg 25 mg, Oral, DAILY, First dose on Francine 05/06/17 at 1130, Until Discontinued Given 05/07/2017 8:36 AM EST 25 mg lamoTRIgine (LaMICtal) tablet 25 mg 25 mg, Oral, 2 TIMES DAILY, First dose (after last modification) on Wed05/07/17 at 2100, Until Discontinued Given 05/12/2017 9:06 AM EST 25 mg lisinopril (PRINIVIL;ZESTril) tablet 5 mg 5 mg, Oral, DAILY, First dose on Wed05/02/17 at 1930, Until Discontinued, +++ACEI Medication+++ Given 05/12/2017 9:06 AM EST 5 mg loperamide (IMODIUM) capsule 2 mg 2 mg, Oral, 4 TIMES DAILY PRN, Starting on Wed05/04/17 at 1937, Until Wed05/12/17 at 1745, Diarrhea, After each loose stool - Max 16 mg (8 caps) per 24 hours. Given 05/04/2017 8:57 PM EST 2 mg LORazepam (ATIVAN) tablet 0.5 mg 0.5 mg, Oral, EVERY 4 HOURS PRN, Starting on Wed05/02/17 at 1924, Until Wed05/10/17 at 1003, Anxiety, Restlessness, Agitation Given 05/09/2017 10:27 PM EST 0.5 mg magnesium hydroxide (MILK OF MAGNESIA) 400 mg/5 mL suspension 30 mL 30 mL, Oral, EVERY 6 HOURS PRN, Starting on Wed05/02/17 at 1924, Until Wed05/12/17 at 1745, Constipation, Max of 60 mL in 24 hours metFORMIN (GLUCOPHAGE) tablet 500 mg 500 mg, Oral, 2 TIMES DAILY WITH MEALS, First dose on Wed05/02/17 at 2130, Until Discontinued, For procedures using IV iodinated contrast: hold metformin at the time of or prior to the procedure, and for 48 hours after. Inform MD Given 05/04/2017 6:04 PM EST 500 mg metoprolol (LOPRESSOR) tablet 50 mg 50 mg, Oral, 2 TIMES DAILY, First dose on Wed05/02/17 at 2100, Until Discontinued Given 05/12/2017 9:06 AM EST 50 mg miconazole (MICATIN) 2 % powder Topical, 2 TIMES DAILY, 84 doses, First dose on Wed05/03/17 at 0900, Last dose on Wed06/13/17 at 2100, Application site: ABD Folds, ananya area Given 05/12/2017 9:00 AM EST miconazole (MICATIN) 2 % powder Topical, PRN, Starting on Wed05/03/17 at 0345, Until Wed05/12/17 at 1745, Wound Care, Application site: ABD Folds and ananya area Given 05/07/2017 9:36 PM EST nitrofurantoin (macrocrystal-monohydrate ) (MACROBID) 100 mg capsule 100 mg 100 mg, Oral, 2 TIMES DAILY, 6 doses, First dose on Wed05/04/17 at 0900, Last dose on Wed05/06/17 at 2100, Administer with food Given 05/06/2017 8:51 PM EST 100 mg ondansetron (ZOFRAN) injection 4 mg 4 mg, Intramuscular, EVERY 4 HOURS PRN, Starting on Wed05/04/17 at 1600, Until Wed05/12/17 at 1745, Nausea ondansetron (ZOFRAN) tablet 4 mg 4 mg, Oral, EVERY 6 HOURS PRN, Starting on Wed05/02/17 at 1924, Until Wed05/04/17 at 1542, Nausea Given 05/04/2017 9:55 AM EST 4 mg ondansetron (ZOFRAN) tablet 4 mg 4 mg, Oral, EVERY 4 HOURS PRN, Starting on Wed05/04/17 at 1600, Until Wed05/12/17 at 1745, Nausea Given 05/05/2017 5:42 PM EST 4 mg pantoprazole (PROTONIX) tablet 40 mg 40 mg, Oral, DAILY, First dose on Wed05/02/17 at 1930, Until Discontinued, Do not crush or chew Given 05/12/2017 9:07 AM EST 40 mg ranolazine (RANEXA) SR tablet 1,000 mg 1,000 mg, Oral, EVERY 12 HOURS SCHEDULED (2 times per day), First dose on Wed05/02/17 at 2130, Until Discontinued Given 05/12/2017 9:09 AM EST 1,000 mg Saccharomyces boulardii (FLORASTOR) capsule 250 mg 250 mg, Oral, 2 TIMES DAILY, First dose on Wed05/04/17 at 0900, Until Discontinued Given 05/12/2017 9:11 AM EST 250 mg sertraline (ZOLOFT) tablet 200 mg 200 mg, Oral, DAILY, First dose on Wed05/02/17 at 2130, Until Discontinued Given 05/12/2017 9:11 AM EST 200 mg traZODone (DESYREL) tablet 100 mg 100 mg, Oral, NIGHTLY, First dose on 05/02/17 at 2100, Until Discontinued Given 05/02/2017 10:16 PM EST 100 mg traZODone (DESYREL) tablet 150 mg 150 mg, Oral, NIGHTLY, First dose (after last modification) on Wed05/03/17 at 2100, Until Discontinued Given 05/06/2017 8:51 PM EST 150 mg traZODone (DESYREL) tablet 200 mg 200 mg, Oral, NIGHTLY, First dose (after last modification) on Wed05/07/17 at 2100, Until Discontinued Given 05/09/2017 8:34 PM EST 200 mg traZODone (DESYREL) tablet 300 mg 300 mg, Oral, NIGHTLY, First dose (after last modification) on Wed05/10/17 at 2100, Until Discontinued Given 05/11/2017 8:55 PM EST 300 mg documented in this encounter Discontinued Medications Medication Sig Discontinue Reason Start Date End Da te NIFEdipine (PROCARDIA XL) 90 mg Oral Tablet Extended Rel 24 hr Take 1 Tab by mouth daily. Stop Taking at Discharge 06/24/2016 05/12/2017 insulin syringe,safetyneedle 1 mL 30 gauge x 516 Misc Syringe 1 Syringe by Misc.(Non-Drug; Combo Route) route nightly. Stop Taking at Discharge 08/04/2016 05/12/2017 metFORMIN (GLUCOPHAGE) 500 mg Oral Tablet Take 500 mg by mouth 2 times daily. Stop Taking at Discharge 05/12/2017 fUROsemide (LASIX) 40 mg Oral TabletIndications:Ananya pheral edema Take 1 Tab by mouth daily. Stop Taking at Discharge 02/03/2017 05/12/2017 risperiDONE (RISPERDAL) 2 mg Oral Tablet Take 2 mg by mouth nightly. Stop Taking at Discharge 05/12/2017 documented as of this encounter Active and Recently Administered Medications Times are shown in EST. Scheduled Medication Order 05/10/2017 05/11/2017 05/12/2017 ARIPiprazole (ABILIFY) tablet 30 mg 30 mg, Oral, DAILY, First dose on 05/02/17 at 1930, Until Discontinued 1020 (Given - Provider: Ela Knapp RN) 0905 (Given - Provider: Alessandra Champion RN) 0859 (Given - Provider: Macho Mcclure RN) aspirin chewable tablet 81 mg 81 mg, Oral, DAILY, First dose on Wed05/03/17 at 0900, Until Discontinued 102 (Given - Provider: Ela Knapp RN) 09 (Given - Provider: Alessandra Champion RN) 09 (Given - Provider: Macho Mcclure RN) atorvastatin (LIPITOR) tablet 20 mg 20 mg, Oral, NIGHTLY, First dose on 05/02/17 at 2100, Until Discontinued 2030 (Given - Provider: Salome Jimenez RN) 2054 (Given - Provider: Cordell Singleton RN) ferrous sulfate tablet 325 mg 325 mg, Oral, 2 TIMES DAILY WITH MEALS, First dose on 05/02/17 at 1930, Until Discontinued 102 (Given - Provider: Ela Knapp RN)181 (Given - Provider: Ela Knapp RN) 09 (Given - Provider: Alessandra Champion RN)172 (Given - Provider: Latha Abdullahi RN) 0901 (Given - Provider: Macho Mcclure RN) fluconazole (DIFLUCAN) tablet 150 mg (COMPLETED) 150 mg, Oral, DAILY, 7 doses, First dose on Wed05/04/17 at 0900, Last dose on Wed05/10/17 at 0900 1019 (Given - Provider: Ela Knapp RN) fUROsemide (LASix) tablet 20 mg 20 mg, Oral, DAILY, First dose (after last modification) on Wed05/03/17 at 0900, Until Discontinued 102 (Given - Provider: Ela Knapp RN) 09 (Given - Provider: Alessandra Champion RN) 09 (Given - Provider: Macho Mcclure RN) glipiZIDE (GLUCOTROL) tablet 10 mg 10 mg, Oral, 2 TIMES DAILY WITH MEALS, First dose on 05/02/17 at 1930, Until Discontinued 102 (Given - Provider: Ela Knapp RN)181 (Given - Provider: Ela Knapp RN) 09 (Given - Provider: Alessandra Champion RN)172 (Given - Provider: Latha Jennifer Gubser, RN) 0902 (Given - Provider: Macho Mcclure RN) insulin aspart U-100 (NovoLOG) injection 1-5 Units 1-5 Units, Subcutaneous, 4 TIMES DAILY WITH MEALS, First dose on Wed05/03/17 at 0800, Until Discontinued, Low dose algorithm: FSBS? Additional Insulin? NPO/Bedtime 121-149 0 units 0 units 150-199 1 units 0 units 200-250 2 units 1 units 251-300 3 units 1 units 301-350 4 units 2 units Greater than 350___5 units call MD _3 units call MD Notify physician if FSBS less than 50 or greater than 350 Do not use NPO dosing If patient receiving TPN or tube feeds. Correction insulin doses must be by at least 3 hours. Waste Sort Code = [facility] 0800 (Not Given - Provider: Ela Knapp RN - Reason: Order parameters not met)1234 (Given - Provider: Ela Knapp RN - Comment: checked by B.S.)1700 (Not Given - Provider: Ela Knapp RN - Reason: Order parameters not met)2100 (Not Given - Provider: Salome Jimenez RN - Reason: Order parameters not met) 0858 (Not Given - Provider: Alessandra Champion RN - Reason: Order parameters not met)1219 (Not Given - Provider: Alessandra Champion RN - Reason: Order parameters not met)1724 (Given - Provider: Latha Abdullahi RN - Comment: bgl 238, pt eating)2100 (Not Given - Provider: Cordell Singleton RN - Reason: Order parameters not met) 0800 (Not Given - Provider: Macho Mcclure RN - Reason: Other - Comment: BS 76 not indicated)1207 (Given - Provider: Macho Mcclure RN) insulin glargine (LANTUS) injection 28 Units 28 Units, Subcutaneous, EVERY EVENING (INSULIN), First dose on 05/02/17 at 1930, Until Discontinued, Do not mix with other insulins Waste Sort Code = BK 1810 (Given - Provider: Ela Knapp RN - Comment: checked by B.S.) 180 (Given - Provider: Latha Abdullahi RN) isosorbide mononitrate (IMDUR) CR tablet 60 mg 60 mg, Oral, DAILY, First dose on 05/02/17 at 1930, Until Discontinued 102 (Given - Provider: Ela Knapp RN) 904 (Given - Provider: Alessandra Champion RN) 904 (Given - Provider: Macho Mcclure RN) lamoTRIgine (LaMICtal) tablet 25 mg 25 mg, Oral, 2 TIMES DAILY, First dose (after last modification) on Wed05/07/17 at 2100, Until Discontinued 102 (Given - Provider: Ela Knapp RN)2030 (Given - Provider: Salome Jimenez RN) 09 (Given - Provider: Alessandra Champion RN)2054 (Given - Provider: Cordell Singleton RN) 09 (Given - Provider: Macho Mcclure RN) lisinopril (PRINIVIL;ZESTril) tablet 5 mg 5 mg, Oral, DAILY, First dose on 05/02/17 at 1930, Until Discontinued, +++ACEI Medication+++ 1022 (Given - Provider: Ela Knapp RN) 09 (Given - Provider: Alessandra Champion RN) 09 (Given - Provider: Macho Mcclure RN) metoprolol (LOPRESSOR) tablet 50 mg 50 mg, Oral, 2 TIMES DAILY, First dose on 05/02/17 at 2100, Until Discontinued 1024 (Given - Provider: Ela Knapp RN)2030 (Given - Provider: Salome Jimenez RN) 09 (Given - Provider: Alessandra Champion RN)2099 (Not Given - Provider: Cordell A Singleton, RN - Reason: Other) 09 (Given - Provider: Macho Mcclure RN) miconazole (MICATIN) 2 % powder(Linked Group 1) Topical, 2 TIMES DAILY, 84 doses, First dose on Wed05/03/17 at 0900, Last dose on 06/13/17 at 2100, Application site: ABD Folds, ananya area 1236 (Given - Provider: Ela Knapp RN)2030 (Given - Provider: Salome Jimenez RN) 911 (Given - Provider: Alessandra Champion RN)2055 (Given - Provider: Cordell Singleton RN) 09 (Given - Provider: Macho Mcclure RN) pantoprazole (PROTONIX) tablet 40 mg 40 mg, Oral, DAILY, First dose on 05/02/17 at 1930, Until Discontinued, Do not crush or chew 1019 (Given - Provider: Ela Knapp RN) 09 (Given - Provider: Alessandra Champion RN) 0907 (Given - Provider: Macho Mcclure RN) ranolazine (RANEXA) SR tablet 1,000 mg 1,000 mg, Oral, EVERY 12 HOURS SCHEDULED (2 times per day), First dose on 05/02/17 at 2130, Until Discontinued 899 (Due)2030 (Given - Provider: Salome Jimenez RN) 09 (Given - Provider: Alessandra Champion RN)2054 (Given - Provider: Cordell Singleton RN) 0909 (Given - Provider: Macho Mcclure RN) Saccharomyces boulardii (FLORASTOR) capsule 250 mg 250 mg, Oral, 2 TIMES DAILY, First dose on Wed05/04/17 at 0900, Until Discontinued 102 (Given - Provider: Ela Knapp RN)2031 (Given - Provider: Salome Jimenez RN) 09 (Given - Provider: Alessandra Champion RN)2054 (Given - Provider: Cordell Singleton RN) 0911 (Given - Provider: Macho Mcclure RN) sertraline (ZOLOFT) tablet 200 mg 200 mg, Oral, DAILY, First dose on 05/02/17 at 2130, Until Discontinued 102 (Given - Provider: Ela Knapp, ROLF) 0905 (Given - Provider: Alessandra Champion, RN) 09 (Given - Provider: Macho Mcclure RN) traZODone (DESYREL) tablet 300 mg 300 mg, Oral, NIGHTLY, First dose (after last modification) on Wed05/10/17 at 2100, Until Discontinued 2030 (Given - Provider: Salome Jimenez, RN) 2054 (Given - Provider: Cordell Singleton RN) PRN Medication Order 05/10/2017 05/11/2017 05/12/2017 acetaminophen (TYLENOL) tablet 650 mg 650 mg, Oral, EVERY 4 HOURS PRN, Starting on 05/02/17 at 1924, Until Wed05/12/17 at 1745, Pain, Fever, Maximum adult dose of acetaminophen is 4000 mg from all sources in 24 hours. aluminum & magnesium hydroxide-simethicone 200-200-20 mg/5 mL suspension 30 mL 30 mL, Oral, EVERY 2 HOURS PRN, Starting on 05/02/17 at 1924, Until Wed05/12/17 at 1745, Indigestion, Shake well. dextrose 50 % solution 25 mL 25 mL, Intravenous, PRN, Starting on Wed05/03/17 at 0650, Until Wed05/12/17 at 1745, Low blood sugar, If FSBS less than 70 mg/dl and patient cannot take orally, Check FSBS every 30 minutes and repeat 25 mL of D50 IV push and notify physician if FSBS less than 70 mg/dL VESICANT glucagon (human recombinant) (GLUCAGEN) injection 1 mg 1 mg, Intramuscular, PRN, Starting on Wed05/03/17 at 0650, Until Wed05/12/17 at 1745, Low blood sugar, If FSBS less than 70 mg/dl, patient cannot take orally and without IV access, If patient is without IV access, give Glucagon 1 mg Intramuscularly, insert IV and call physician. hydrOXYzine (VISTARIL) capsule 25 mg 25 mg, Oral, EVERY 6 HOURS PRN, Starting on 05/10/17 at 1003, Until Wed05/12/17 at 1745, Anxiety 2030 (Given - Provider: Salome Jimenez, ROLF) 09 (Given - Provider: Alessandra Champion RN)153 (Given - Provider: Latha Abdullahi RN)2145 (Given - Provider: Cordell Singleton RN) loperamide (IMODIUM) capsule 2 mg 2 mg, Oral, 4 TIMES DAILY PRN, Starting on Wed05/04/17 at 1937, Until Wed05/12/17 at 1745, Diarrhea, After each loose stool - Max 16 mg (8 caps) per 24 hours. magnesium hydroxide (MILK OF MAGNESIA) 400 mg/5 mL suspension 30 mL 30 mL, Oral, EVERY 6 HOURS PRN, Starting on Wed05/02/17 at 1924, Until Wed05/12/17 at 1745, Constipation, Max of 60 mL in 24 hours miconazole (MICATIN) 2 % powder(Linked Group 1) Topical, PRN, Starting on Wed05/03/17 at 0345, Until Wed05/12/17 at 1745, Wound Care, Application site: ABD Folds and ananya area nitroGLYCERIN (NITROSTAT) SL tablet 0.4 mg 0.4 mg, Sublingual, EVERY 5 MIN PRN, Starting on Wed05/02/17 at 1923, Until Wed05/12/17 at 1745, Chest pain, 0.4 mg = 1 Tab sublingual q5 min x 3 for CP, then notify MD if unrelieved - hold if SBP less than 90. Administer for angina/chest pain prior to administration of analgesics for angina. ondansetron (ZOFRAN) injection 4 mg(Linked Group 2) 4 mg, Intramuscular, EVERY 4 HOURS PRN, Starting on Wed05/04/17 at 1600, Until Wed05/12/17 at 1745, Nausea ondansetron (ZOFRAN) tablet 4 mg(Linked Group 2) 4 mg, Oral, EVERY 4 HOURS PRN, Starting on Wed05/04/17 at 1600, Until Wed05/12/17 at 1745, Nausea Linked Groups Order Group 1: miconazole (MICATIN) 2 % powderJump to med Topical, 2 TIMES DAILY, 84 doses, First dose on Wed05/03/17 at 0900, Last dose on Wed06/13/17 at 2100, Application site: ABD Folds, ananya area And miconazole (MICATIN) 2 % powderJump to med Topical, PRN, Starting on Wed05/03/17 at 0345, Until Wed05/12/17 at 1745, Wound Care, Application site: ABD Folds and ananya area Group 2: ondansetron (ZOFRAN) tablet 4 mgJump to med 4 mg, Oral, EVERY 4 HOURS PRN, Starting on Wed05/04/17 at 1600, Until Wed05/12/17 at 1745, Nausea Or ondansetron (ZOFRAN) injection 4 mgJump to med 4 mg, Intramuscular, EVERY 4 HOURS PRN, Starting on Wed05/04/17 at 1600, Until Wed05/12/17 at 1745, Nausea documented in this encounter Orders Medications Ordered That Gaurav ht Not Have Been Administered Count Last Ordered Date First Ordered Date ondansetron (ZOFRAN) injection 4 mg 3 05/0405/02/2017 ondansetron (ZOFRAN) tablet 4 mg 1 05/04/19 18 dextrose 50 % solution 25 mL 1 05/03/2017 glucagon (human recombinant) (GLUCAGEN) injection 1 mg 1 05/03/2017 aluminum & magnesium hydroxi de-simethicone 200-200-20 mg/5 mL suspension 30 mL 1 05/02/2017 fUROsemide (LASix) tablet 40 mg 1 8 LORazepam (ATIVAN) injection 0.5 mg 1 05/02 magnesium hydroxide (MILK OF MAGNESIA) 400 mg/5 mL suspension 30 mL 1 05/02/2017 nitroGLYCERIN (NITROSTAT) SL tablet 0.4 mg 1 05/02/2017 risperiDONE (RisperDAL) tablet 2 mg 1 05/02 Nursing Count Last Ordered Date First Orde red Date MAY SIGN VOLUNTARY PSYCHIATRIC ADMISSION 1 05/05/2017 ADMISSION 1 05/02/2017 ASSESS 1 05/02/2017 BLOOD GLUCOSE 1 05/02/2017 ED ENTER ADMISSION ORDER 1 05/02/2017 MEASURE WEIGHT 1 05/02/2017 NURSING COMMUNICATION 1 05/02/2017 Consult Count Last Ordered Date First Orde red Date IP CONSULT TO INTERNAL MEDICINE 1 8 [facility] Count Last Ordered D ate First Ordered Date ED CONSULT FOR MENTAL HEALTH ASSESSMENT 1 0 05/02/2017 INITIATE PETITION FOR 72 HOUR HOLD 2 2017 Transfer Count Last Ordered Date First Orde red Date BED REQUEST 1 05/02/2017 documented in this encounter Additional Health Concerns Assessment Noted Time A fall risk assessment has been complete d for the patient 04/21/2017 10:52 AM EST documented as of this encounter Care Teams Cardiac Nurse Relationship Specialty Start Date End Date Sharee Segovia APRN [address] [place] [address] PCP - General Nurse Practitioner-Family 09/21/16 documented as of this encounter
--- OUTSIDE RECORDS SUMMARY | 2024-02-16 14:56 | XMS_ITS | Encounter Summary ---
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, with long-term current use of insulin 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 Sharee Segovia APRN [address] [place] [address] Phone: tel: fax: [facility] [address] [place] [address] Phone: tel: fax: Referral ID Status Reason Start Date Expiration Date V isits Requested Visits Authorized [id number] Closed Specialty Services Required 10/22/2016 10/22/[phone] Encounter Details Date Type Department Care Team (Late st Contact Info) Description 04/21/2017 10:50 AM EST Office Visit [facility] [address] [place] [address] Mayo Muse, DPM [address] [facility] [address] [place] [address] [id number] 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 (HCC) (Primary Dx); History of CVA (cerebrovascular accident); Hemiparesis affecting left side as late effect of stroke (HCC); Onychomycosis; Pain in toes of both [...] - Inhaled Oxygen Concentration - - Weight 102.1 kg (225 lb) 04/21/2017 10:58 AM EST Height 174 cm (5' 8.5 ) 04/21/2017 10:58 AM EST Body Mass Index 33.71 04/21/2017 10:58 AM EST documented in this encounter Progress Notes * Mayo Muse DPM - 04/21/2017 10:50 AM EST Subjective: Patient ID: Faby Palm is a 66 y.o. female. Chief Complaint: Diabetes and Nail Care (Complains of painful toenails ) HPI 66 y.o. female DM2 with neuropathy and history of CVA here for painful toenails 1-5 of both feet b/l. Denies new pedal complaints. Patients past medical, family and social histories were reviewed and updated. There were no changesexcept as noted. Outpatient Prescriptions Marked as Taking for the 04/21/17 encounter (Office Visit) with Mayo Muse DPM [...] (with meals).60 Tab 5 ??? fUROsemide (LASIX) 40 mg Oral Tablet Take 1 Tab by mouth daily. 30 Tab 2 ??? glipiZIDE (GLUCOTROL) 10 mg Oral Tablet Take 10 mg by mouth 2 times daily (with meals). ??? insulin glargine (LANTUS) 100 unit/mL SubQ Solution Subcutaneous (Inject under the skin) 28 Units every evening. 10 mL 12 ??? insulin syringe,safetyneedle 1 mL 30 gauge x 516 Misc Syringe 1 Syringe by [facility] [place] [facility].(Non-Drug; Combo Route) route nightly. 30 Syringe 1 ??? isosorbide mononitrate (IMDUR) 60 mg Oral Tablet Sustained Release 24 hr TAKE ONE TABLET BY MOUTH ONCE DAILY 30 Tab 1 ??? lisinopril (PRINIVIL;ZESTRIL) 5 mg Oral Tablet Take 5 mg by mouth daily. ??? metFORMIN (GLUCOPHAGE) 500 mg Oral Tablet Take 500 mg by mouth 2 times daily. ??? metoprolol (LOPRESSOR) 50 mg Oral Tablet TAKE 1 TABLET BY MOUTH 2 TIMES DAILY 60 Tab 2 ??? NIFEdipine (PROCARDIA XL) 90 mg Oral Tablet Extended Rel 24 hr Take 1 Tab by mouth daily. 30 Tab 1 ??? nitroGLYCERIN (NITROSTAT) 0.4 mg SL [...] HOURS 60 Tab 0 ??? risperiDONE (RISPERDAL) 2 mg Oral Tablet Take 2 mg by mouth nightly. ??? sertraline (ZOLOFT) 100 mg Oral Tablet Take 200 mg by mouth daily. Reported on 08/12/2016 Review of Systems Constitutional: Positive for fatigue. Negative for chills and fever. Respiratory: Positive for shortness of breath. Cardiovascular: Positive for leg swelling. Gastrointestinal: Negative for nausea and vomiting. All other systems reviewed and are negative. Objective: Vitals: 04/21/17 1058 Weight: 225 lb (102.1 kg) Height: 5' 8.5 (1.74 m) Body mass index is 33.71 kg/m??. Lab Results Component Value Date HGBA1C 7.9 (H) 10/22/2016 Monofilament & Eye Exam 04/21/2017 Foot Exam Performed? Yes R Posterior Tibial Present L Posterior Tibial Present R Dorsalis Pedis Present L Dorsalis Pedis Present R Monofilament Decreased L Monofilament Decreased R Inspection Normal L Inspection Normal Physical Exam Nail plates of 1-5 bilateral toes are long thickened brittle and dystrophic. No gross paronychia isnoted the adjacent nail folds. No gross evidence of pyogenic granuloma is noted. +Pain. Assessment and Plan: Faby was seen today for diabetes and nail care. Diagnoses and all orders for this visit: 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 (HCC) - WA DEBRIDEMENT OF NAILS, 6 OR MORE History of CVA (cerebrovascular accident) - WA DEBRIDEMENT OF NAILS, 6 OR MORE Hemiparesis affecting left side as late effect of stroke (HCC) - WA DEBRIDEMENT OF NAILS, 6 OR MORE Onychomycosis - WA DEBRIDEMENT OF NAILS, 6 OR MORE Pain in toes of both feet - WA DEBRIDEMENT OF NAILS, 6 OR MORE Debrided mycotic appearing hypertrophied nails of both dystrophic thickening and length to relief of all affected toes. No new orders regarding nail treatment. 3 month f/u. Mayo Muse DPM 04/21/17 documented in this encounter Miscellaneous Notes * Patient Instructions - Marilu Rodriguez, RMA - 04/21/2017 11:00 AM EST Patient Education Diabetes and Foot Care Diabetes [...] important things you can do for yourself. HOME CARE INSTRUCTIONS ?? Wear shoes at all times, even [...] bruises to your health care provider immediately. SEEK MEDICAL CARE IF: ?? You have an injury that is [...] numb. ?? Your feet always feel cold. SEEK IMMEDIATE MEDICAL CARE IF: ?? There is increasing redness, swelling, or [...] care provider. Document Released: 02/19/2001 Document Revised: 10/25/2013 Document Reviewed: 08/01/2013 [employer] Interactive Patient Education ??2016 [employer] documented in this encounter Plan of Treatment Scheduled Orders Name Type Priority Associated Diagnoses Orde r Schedule WA DEBRIDEMENT OF NAILS, 6 OR MORE WA Charge Routine 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 (HCC) History of CVA (cerebrovascular accident) Hemiparesis affecting left side as late effect of stroke (HCC) Onychomycosis Pain in toes of both feet Ordered: 04/21/2017 documented as of this encounter Goals Goal Patient Goal Type Associated Problems Recent Progress Patient-Stated? Author Blood Pressure < 140/90 Blood Pressure 124/52(2018 4:00 PM EDT) No Silva Mathew RMA BMI (Calculated) < 30 General 35.6(10/06/19 4:56 PM EDT) No Silva Mathew RMA Maintain a healthy diet, exercise regularly and maintain an ideal body weight General No Quincy Silva S, RMA HEMOGLOBIN A1C < 7.0 Result Component 6.6( 9 9:49 AM EST) No Silva Mathew RMA documented as of this encounter Visit Diagnoses Diagnosis 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- Primary History of CVA (cerebrovascular accident) Transient ischemic attack (TIA), and cerebral infarction without residual deficits Hemiparesis affecting left side as late effect of stroke (HCC) Hemiplegia affecting unspecified side, late effect of cerebrovascular disease Onychomycosis Dermatophytosis of nail Pain in toes of both feet documented in this encounter Historical Medications * This list may reflect changes made after this encounter. risperiDONE (RISPERDAL) 2 mg Oral Tablet Take 2 mg by mouth nightly. 05/12/2017 lisinopril (PRINIVIL;ZESTRIL ) 5 mg Oral Tablet Take 5 mg by mouth daily. 07/20/2017 added in this encounter Additional Health Concerns Assessment Noted Time A fall risk assessment has been complete d for the patient 04/21/2017 10:52 AM EST documented as of this encounter Care Teams Counter Help Relationship Specialty Start Date End Date Sharee Segovia APRN [address] [place] [address] PCP - General Nurse Practitioner-Family 09/21/16 documented as of this encounter
--- OUTSIDE RECORDS SUMMARY | 2024-02-16 14:56 | XMS_ITS | Encounter Summary ---
Author Organization [place] [address] Care Team Providers Care Cuff Turner Name Role Phone Sharee Segovia APRN Primary Care Provider [phone] Reason for Visit * Reason Onset Date Comments Care Transition 04/14/2017 Care Management - Chart Review 04/14/2017 Hospital Follow Up 04/14/2017 Encounter Details Date Type Department Care Team (Latest Contact Info) Description 04/14/2017 Patient Outreach [facility] [address] [place] [address] Viktoriya Pizarro LPN Care Transition; Care Management - Chart Review; Hospital Follow [...] as of this encounter Progress Notes * Viktoriya Sevilla LPN - 04/14/2017 8:45 AM EST Hospital Discharge on 04/13/17 related to Acute chest pain does not meet the criteria for [facility] to follow at this time patient to remain a Level 1. documented in this encounter Miscellaneous Notes * Patient Instructions - Birdie Amor RMA - 04/14/2017 10:29 AM EST Called and left message for pt to call back . Pt does live in a bookkeeper assistant living home documented in this encounter Plan of Treatment [...] on filedocumented in this encounter Care Teams Cuff Turner Relationship Specialty Start Date End Date Sharee Segovia APRN [address] [place] [address] PCP - General Nurse Practitioner-Family 09/21/16 documented as of this encounter
--- OUTSIDE RECORDS SUMMARY | 2024-02-16 14:56 | XMS_ITS | Encounter Summary ---
Author Organization [place] [address] Care Team Providers Care Interventional Technologist Name Role Phone Sharee Segovia MEAT HOSTESS Primary Care Provider [phone] Reason for Visit * Reason Comments Medication Refill Encounter Details Date Type Department Care Team (Late st Contact Info) Description 05/06/2017 Refill [facility] [address] [place] [address] Joanna Hitchcock MD Medication Refill Social [...] unspecified angina pectoris documented in this encounter Additional Health Concerns Assessment Noted Time A fall risk assessment has been complete d for the patient 04/21/2017 10:52 AM EST documented as of this encounter Care Teams Interventional Technologist Relationship Specialty Start Date End Date Sharee Segovia APRN [address] [place] [phone] PCP - General Nurse Practitioner-Family 09/21/16 documented as of this encounter
--- OUTSIDE RECORDS SUMMARY | 2024-02-16 14:57 | XMS_ITS | Encounter Summary ---
Author Organization [place] [address] Care Team Providers Care Dominatrix Name Role Phone Sharee Segovia APRN Primary Care Provider [phone] Reason for Visit * Reason Comments Medication Refill Encounter Details Date Type Department Care Team (Late st Contact Info) Description 12/04/2016 Refill [facility] [address] [place] [address] Joanna Hitchcock MD Medication Refill Social [...] BY MOUTH EVERY 12 HOURS 60 Tab 12/04/2016 12/30/2016 documented in this encounter Plan of Treatment Not on file documented as of this encounter Goals Goal Patient Goal Type Associated Problems Recent Progress Patient-Stated? Author Blood Pressure < 140/90 Blood Pressure 124/52(2018 4:00 PM EDT) No Silva Mathew RMRonaldo BMI (Calculated) < 30 General 35.6(10/06/19 19 4:56 PM EDT) No Silva Mathew RMRonaldo Maintain a healthy diet, exercise regularly [...] Discontinue Reason Start Date End Da te Ranolazine 1,000 mg Oral Tablet Sustained Release 12 hrIndications:Stable angina (HCC) Take 1,000 mg by mouth every 12 hours. Reorder 11/02/2016 12/04/2016 documented as of this encounter Care Teams Dominatrix Relationship Specialty Start Date End Date Sharee Segovia APRN [address] [place] [phone] PCP - General Nurse Practitioner-Family 09/21/16 documented as of this encounter
--- OUTSIDE RECORDS SUMMARY | 2024-02-16 14:57 | XMS_ITS | Encounter Summary ---
Author Organization [place] [address] Care Team Providers Care Model And Mold Maker Name Role Phone Sharee Segovia APRN Primary Care Provider [phone] Reason for Visit * Reason Comments Medication Refill Encounter Details Date Type Department Care Team (Late st Contact Info) Description 02/03/2017 Refill [facility] [address] [place] [address] Sharee Segovia APRN [address] [place] [address] Medication Refill Social History Tobacco Use Types [...] Refills Last Filled Start Date End Date fUROsemide (LASIX) 40 mg Oral TabletIndications:P eripheral edema Take 1 Tab by mouth daily. 30 Tab 2 02/03/2017 05/12/2017 documented in this encounter Plan of Treatment [...] as of this encounter Visit Diagnoses Diagnosis Peripheral edema Edema documented in this encounter Care Teams Model And Mold Maker Relationship Specialty Start Date End Date Sharee Segovia APRN [address] [place], [place] [phone] PCP - General Nurse Practitioner-Family 09/21/16 documented as of this encounter
--- OUTSIDE RECORDS SUMMARY | 2024-02-16 14:57 | XMS_ITS | Encounter Summary ---
Author Organization [place] [address] Care Team Providers Care Criminal Justice Professor Name Role Phone Sharee Segovia APRN Primary Care Provider [phone] Reason for Visit * Reason Comments Medication Refill Encounter Details Date Type Department Care Team (Late st Contact Info) Description 03/23/2017 Refill [facility] [address] [place] [address] Joanna Hitchcock MD Medication Refill Social [...] Refills Last Filled Start Date End Date atorvastatin (LIPITOR) 20 mg Oral Tablet TAKE ONE TABLET BY MOUTH NIGHTLY 30 Tab 1 03/24/2017 isosorbide mononitrate (IMDUR) 60 mg Oral Tablet Sustained Release 24 hr TAKE ONE TABLET BY MOUTH ONCE DAILY 30 Tab 1 03/24/2017 05/15/201 9 documented in this encounter Plan of Treatment Not on file documented as of this encounter Goals Goal Patient Goal Type Associated Problems Recent Progress Patient-Stated? Author Blood Pressure < 140/90 Blood Pressure 124/52(2018 4:00 PM EDT) No Silva Mathew RMA BMI (Calculated) < 30 General 35.6(10/06/19 4:56 PM EDT) No Silva Mathew RMRonaldo Maintain a healthy diet, exercise regularly and maintain an ideal body weight General No Silva Mathew RMA HEMOGLOBIN A1C < 7.0 Result Component 6.6( 9 9:49 AM EST) No Silva Mathew RMA documented as of this encounter Visit Diagnoses Not on filedocumented in this encounter Discontinued Medications Medication Sig Discontinue Reason Start Date End Da te atorvastatin (LIPITOR) 20 mg Oral Tablet Take 1 Tab by mouth nightly. DELETE-Duplicate 10/28/2016 03/24/2017 isosorbide mononitrate (IMDUR) 60 mg Oral Tablet Sustained Release 24 hr Take 1 Tab by mouth daily. DELETE-Duplicate 10/28/2016 03/24/2017 documented as of this encounter Care Teams Criminal Justice Professor Relationship Specialty Start Date End Date Sharee Segovia APRN [address] [place] [phone] PCP - General Nurse Practitioner-Family 09/21/16 documented as of this encounter
--- OUTSIDE RECORDS SUMMARY | 2024-02-16 14:57 | XMS_ITS | Encounter Summary ---
Author Organization [place] [address] Care Team Providers Care Shipping Room Helper Name Role Phone Sharee Segovia APRN Primary Care Provider [phone] Reason for Visit * Reason Comments Medication Refill Encounter Details Date Type Department Care Team (Late st Contact Info) Description 03/10/2017 Refill [facility] [address] [place] [address] Joanna Hitchcock MD Medication Refill Social [...] BY MOUTH EVERY 12 HOURS 60 Tab 03/10/2017 04/08/2017 documented in this encounter Plan of Treatment [...] TABLET BY MOUTH EVERY 12 HOURS Reorder 01/26/2017 03/10/2017 documented as of this encounter Care Teams Shipping Room Helper Relationship Specialty Start Date End Date Sharee Segovia APRN [address] [place], [place] [address] PCP - General Nurse Practitioner-Family 09/21/16 documented as of this encounter
--- OUTSIDE RECORDS SUMMARY | 2024-02-16 14:57 | XMS_ITS | Encounter Summary ---
Author Organization [place] [address] Care Team Providers Care Stone Sandblaster Name Role Phone Sharee Segovia APRN Primary Care Provider [phone] Reason for Visit * Reason Comments Medication Refill Encounter Details Date Type Department Care Team (Late st Contact Info) Description 02/13/2017 Refill [facility] [address] [place] [address] Joanna Hitchcock MD Medication Refill Social [...] Refills Last Filled Start Date End Date UNIFINE PENTIPS 32 gauge x 5/32 Misc Needle USE WITH LANTUS ONCE DAILY 30 Each 02/15/2017 02/23/2017 documented in this encounter Plan of Treatment [...] Discontinue Reason Start Date End Da te UNIFINE PENTIPS 32 gauge x Misc Needle USE WITH LANTUS ONCE DAILY Reorder 01/13/2017 02/13/2017 documented as of this encounter Care Teams Stone Sandblaster Relationship Specialty Start Date End Date Sharee Segovia APRN [address] [place] [phone] PCP - General Nurse Practitioner-Family 09/21/16 documented as of this encounter
--- OUTSIDE RECORDS SUMMARY | 2024-02-16 14:57 | XMS_ITS | Encounter Summary ---
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 [place] [address] [place] [address] Mayo Muse, DPM [address] [facility] [address] [place] [address] [id number] 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 (HCC) (Primary Dx); Hemiparesis affecting left side as late effect of stroke (HCC); History of CVA (cerebrovascular accident); Peripheral motor neuropathy; Onychomycosis; Pain in toes of both feet [...] - Inhaled Oxygen Concentration - - Weight 115.7 kg (255 lb) 12/16/2016 12:30 PM EDT Height 174 cm (5' 8.5 ) 12/16/2016 12:30 PM EDT Body Mass Index 38.21 12/16/2016 12:30 PM EDT documented in this encounter Progress Notes * Mayo Muse, TJ - 12/16/2016 12:10 PM EDT Subjective: Patient ID: Faby Palm is a 66 y.o. female. Chief Complaint: Diabetes HPI This is a 66 year old female with type 2 diabetes with peripheral neuropathy and a history of CVA and left sided weakness. Patient is also complaining of multiple toe nails of each foot which are painful and upon ambulation and shoe gear as well as generalized foot care. The patient has thus far been unable to provide self-care due to both concomitant medical/physical issues, and the severe nature of the deformity which limits the patient's ability to ambulate and to walk in shoe gear without pain. Patient also admits to toes intermittently becoming irritated around thickened nail plates as well as incurvation or impingement on adjacent digits if the nail is left untrimmed. Patients past medical, family and social histories were reviewed and updated. There were no changesexcept as noted. Outpatient Prescriptions Marked as Taking for the 12/16/16 encounter (Office Visit) with Mayo Muse DPM Medication Sig Dispense Refill ??? acetaminophen 325 mg Oral Tab Take 650 mg by mouth every 4 hours as needed for Pain. ??? amitriptyline (ELAVIL) 75 mg Oral Tablet TAKE ONE TABLET BY MOUTH NIGHTLY 30 Tab 0 ??? ARIPiprazole (ABILIFY) 10 mg Oral Tablet Take 20 mg by mouth 2 times daily. ??? aspirin 81 mg Oral Tablet, Delayed Release (E.C.) Take 81 mg by mouth daily. ??? atorvastatin (LIPITOR) 20 mg Oral Tablet Take 1 Tab by mouth nightly. 30 Tab 1 ??? atorvastatin (LIPITOR) 20 mg Oral Tablet Take 1 Tab by mouth nightly. 14 Tab 0 ??? buPROPion (WELLBUTRIN SR) 150 mg Oral Tablet Sustained Release 12 hr Take 150 mg by mouth daily. ??? ferrous sulfate 325 mg (65 mg iron) Oral Tablet Take 1 Tab by mouth 2 times daily (with meals).60 Tab 5 ??? fUROsemide (LASIX) 40 mg Oral Tablet Take 1 Tab by mouth daily. 30 Tab 2 ??? gabapentin (NEURONTIN) 100 mg Oral Capsule Take 100 mg by mouth 3 times daily. Take 2 capsules by mouth 3 times daily ??? glipiZIDE (GLUCOTROL) 10 mg Oral Tablet Take 10 mg by mouth 2 times daily (with meals). ??? hydrOXYzine (ATARAX) 25 mg Oral Tablet Take 25 mg by mouth 2 times daily. Indications: ANXIETY ??? ibuprofen (ADVIL;MOTRIN) 600 mg Oral Tablet Take 1 Tab by mouth every 6 hours as needed for Pain. 160 Tab 2 ??? insulin glargine (LANTUS) 100 unit/mL SubQ Solution Inject 21 units at nighttime in subcutaneous area.May substitute pens if covered by insurance 10 mL 3 ??? insulin syringe,safetyneedle 1 mL 30 gauge x 07/21 [facility] Syringe 1 Syringe by [facility].(Non-Drug; Combo Route) route nightly. 30 Syringe 1 ??? isosorbide mononitrate (IMDUR) 60 mg Oral Tablet Sustained Release 24 hr Take 1 Tab by mouth daily. 30 Tab 1 ??? isosorbide mononitrate (IMDUR) 60 mg Oral Tablet Sustained Release 24 hr Take 1 Tab by mouth daily. 14 Tab 0 ??? LANTUS SOLOSTAR 100 unit/mL (3 mL) SubQ Insulin Pen INJECT 15 UNITS UNDER THE SKIN EVERY EVENING 15 mL 0 ??? lisinopril (PRINIVIL;ZESTRIL) 5 mg Oral Tablet TAKE 1 TABLET BY MOUTH DAILY 30 Tab 5 ??? metFORMIN (GLUCOPHAGE) 500 mg Oral Tablet Take 500 mg by mouth 2 times daily. ??? metoprolol (LOPRESSOR) 50 mg Oral Tablet Take 1 Tab by mouth 2 times daily. 60 Tab 0 ??? NIFEdipine (PROCARDIA XL) 90 mg Oral Tablet Extended Rel 24 hr TAKE ONE TABLET BY MOUTH DAILY 30 Tab 2 ??? NIFEdipine (PROCARDIA XL) 90 [...] HOURS 60 Tab 0 ??? risperiDONE (RISPERDAL) 1 mg Oral Tablet Take 2 mg by mouth nightly. ??? roPINIRole (REQUIP) 0.5 mg Oral Tablet TALE 3 TABLET BY MOUTH DAILY FOR 1.5MG AT BEDTIME 90 Tab5 ??? sertraline (ZOLOFT) 100 mg Oral Tablet Take 200 mg by mouth daily. Reported on 08/12/2016 ??? sitaGLIPtin (JANUVIA) 100 mg Oral Tablet Take 100 mg by mouth daily. ??? UNIFINE PENTIPS 32 gauge x 32 Misc Needle USE WITH LANTUS ONCE DAILY 30 Each 0 Review of Systems Constitutional: Negative for chills and fever. Gastrointestinal: Negative for nausea and vomiting. All other systems reviewed and are negative. Objective: Vitals: 12/16/16 1230 Weight: 255 lb (115.7 kg) Height: 5' 8.5 (1.74 m) Body mass index is 38.21 kg/m??. Physical Exam Lower Extremity Exam: Dermatologic: Bilaterally, 1-5 pedal nails thick and incurvated with subungual debris discolored dystrophic and crumbly. Skin overall intact with skin discoloration foot dorsally and perimalleolarly. Atrophic skinand skin structure changes including hair follicle absence and overall skin thickness dorsally present bilaterally. Webspaces 1-4 intact bilaterally. Discomfort w/ palpation of nail plates. Vascular: Pulses 2/4 DP & PT Bilaterally. Capillary fill time brisk, approximately 3 seconds or less. Orthopedic: Bony foot structure appears grossly normal. Extrinsic and intrinsic musculature of the foot are grossly normal with strengths of 5/5 all moversof the foot and ankle. Negative pain to palpation pedal bones and structures bilaterally with no evidence of soft tissue crepitation. Negative pain to passive or active range of motion bilaterally and free of overt joint crepitation. Footwear inspected and appropriate given patient's neurovascular lower extremity findings. Neurological: Gross and epicritic sensation diminished bilaterally. Protective sensation diminished Gross motor intact bilaterally. Achilles and Patellar reflexes within normal limits 2/4 bilateral, negative babinski, hallux downgoing. Negative tinels/vallieux upon neural light percussion. Assessment and Plan: Faby was seen today for diabetes. Diagnoses and all orders for this visit: 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 (HCC) Hemiparesis affecting left side as late effect of stroke (HCC) History of CVA (cerebrovascular accident) Peripheral motor neuropathy Onychomycosis Pain in toes of both feet 1. E./M. x30 minutes with greater than 50% of time spent with patient dedicated to discussion of pathogenesis and treatment options for patient's problem including neurologic examination, shoegear inspection and recommendations, frequency of rechecks, and application of common-sense foot protectionfrom elements and extreme cold and heat. - Sharp debridement painful mycotic nails one through 5 from bilateral feet. - Due to patient's concomitant medical conditions and inability to self care due to severity of condition, patient will be reappointed for regularly scheduled exam and treatment. - Follow up in 4 months. The following was discussed with Ms. Palm during today's visit: ?? The need for and benefit of colon cancer screening and benefit of early detection and management, recommended contacting PCP to get an order or referral as appropriate. Mayo Muse DPM 12/16/16 documented in this encounter Miscellaneous Notes * Patient Instructions - Mayo Muse DPM - 12/16/2016 10:35 PM EDT Mayo Hobbs DPM or the staff today noticed that you have findings that are out of the recommendations that [facility] uses to optimize our patients health and outcomes. Today this was specific to: ?? 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 3 chronic kidney disease, with long-term current use of insulin (HCC) 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 (HCC) Ordered: 10/22/2016 documented as of this encounter Goals Goal [...] 2 diabetes mellitus with peripheral neuropathy- Primary Hemiparesis affecting left side as late effect of stroke (HCC) Hemiplegia affecting unspecified side, late effect of cerebrovascular disease History of CVA (cerebrovascular accident) Transient ischemic attack (TIA), and cerebral infarction without residual deficits Peripheral motor neuropathy Mononeuritis of unspecified site Onychomycosis Dermatophytosis of nail Pain in toes of both feet documented in this encounter Care Teams Web Pressman Relationship Specialty Start Date End Date Sharee Segovia APRN [address] [place], [place] [id number] PCP - General Nurse Practitioner-Family 09/21/16 documented as of this encounter
--- OUTSIDE RECORDS SUMMARY | 2024-02-16 14:57 | XMS_ITS | Encounter Summary ---
Author Organization [place] [address] Care Team Providers Care Director Employment Name Role Phone Sharee Segovia APRN Primary Care Provider [phone] Reason for Visit * Reason Comments Weakness was weak for a day i n [facility] living [facility]. EMS found blood pressure in the 70's and pt is bradycardic. * Auth/Cert/Inpt Specialty Diagnoses / Procedures Referred By Contac t Referred To Contact Diagnoses JACK (acute kidney injury) (HCC) Hypotension, unspecified hypotension type Referral ID Status Reason Start Date Expiration Date Visits Re quested Visits Authorized [id number] 1 1 Encounter Details Date Type Department Care Team (Latest Contact Info) Description 12/18/2016 4:03 PM EDT - 12/22/2016 2:47 PM EDT Hospital Encounter [facility] [address] [address] [place] [address]. [place] [address] Jeanette Santos MD [address] [place] [id number] Jesse Crouch MD [address] [place] [address] JACK (acute kidney injury) (HCC) (Primary Dx); Hypotension, unspecified hypotension type Discharge Disposition: Home or Self Care [...] Sign Reading Time Taken Comments Blood Pressure 171/77 12/22/2016 9:59 AM EDT Pulse 62 12/22/2016 9:59 AM EDT Temperature 36.3 ??C (97.4 ??F) 12/22/2016 9:59 AM ED T Respiratory Rate 16 12/22/2016 9:59 AM EDT Oxygen Saturation 92% 12/22/2016 9:59 AM EDT Inhaled Oxygen Concentration - - Weight 118.9 kg (262 lb 3.2 oz) 12/18/2016 4:05 PM EDT Height 172.7 cm (5' 8 ) 12/18/2016 4:05 PM EDT Body Mass Index 39.87 12/18/2016 4:05 PM EDT documented in this encounter Discharge Summaries * Jesse Crouch MD - 12/22/2016 11:29 AM EDT Date of Admission: 12/18/2016 Date of Discharge: 12/22/2016 Discharge Diagnoses: Acute on chronic renal failure, hypotension, essential hypertension, Consultants: Nephrology History and Hospital Course: Patient is a 66 y/o woman, a [facility] a [facility], who presented with complaint of weakness. She was hypotensive on arrival and in acute renal failure. She was brought in, was placed on fluids and Nephrology was consulted. We held her BP medications, Creatinine improved steadily with fluids. She initially developed some edema after fluid administration but this cleared up once we restarted BP meds. Nephrology has determined that she has CKD from DM and HTN and that she was in acute prerenal failure on arrival due to h ypotension. She's had no further hypotension since meds were adjusted. She will be discharged on her Nifedipine and Metoprolol with plans to hold Lasix and ARABELLA-I medication. She will follow up with primary care. Medication List CHANGE how you take these medications NIFEdipine 90 mg Tr24 Dose: 90 mg Qty: 30 Tab Refills: 1 Commonly known as: PROCARDIA XL 90 mg, Oral, DAILY What changed: Another medication with the same name was removed. Continue taking this medication, and follow the directions you see here. CONTINUE taking these medications acetaminophen 325 mg Tab Dose: 650 mg Refills: 0 Commonly known as: TYLENOL amitriptyline 75 mg Tab Qty: 30 Tab Refills: 0 Commonly known as: ELAVIL TAKE ONE TABLET BY MOUTH NIGHTLY ARIPiprazole 10 mg Tab Dose: 30 mg Refills: 0 Commonly known as: ABILIFY aspirin 81 mg Tbec Dose: 81 mg Refills: 0 * atorvastatin 20 mg Tab Dose: 20 mg Qty: 14 Tab Refills: 0 Commonly known as: LIPITOR 20 mg, Oral, NIGHTLY * atorvastatin 20 mg Tab Dose: 20 mg Qty: 30 Tab Refills: 1 Commonly known as: LIPITOR 20 mg, Oral, NIGHTLY buPROPion 150 mg Tb12 Dose: 150 mg Refills: 0 Commonly known as: WELLBUTRIN SR ferrous sulfate 325 mg (65 mg iron) Tab Dose: 325 mg Qty: 60 Tab Refills: 5 325 mg, Oral, 2 TIMES DAILY WITH MEALS gabapentin 100 mg Cap Dose: 100 mg Refills: 0 Commonly known as: NEURONTIN glipiZIDE 10 mg Tab Dose: 10 mg Refills: 0 Commonly known as: GLUCOTROL hydrOXYzine 25 mg Tab Dose: 25 mg Refills: 0 Commonly known as: ATARAX * insulin glargine 100 unit/mL Soln Qty: 10 mL Refills: 3 Commonly known as: LANTUS Inject 21 units at nighttime in subcutaneous area.May substitute pens if covered by insurance * LANTUS SOLOSTAR 100 unit/mL (3 mL) Inpn Qty: 15 mL Refills: 0 Generic drug: Insulin Glargine INJECT 15 UNITS UNDER THE SKIN EVERY EVENING insulin syringe,safetyneedle 1 mL 30 gauge x 5/16 Syrg Dose: 1 Syringe Qty: 30 Syringe Refills: 1 1 Syringe, Misc.(Non-Drug; Combo Route), NIGHTLY * isosorbide mononitrate 60 mg Tb24 Dose: 60 mg Qty: 14 Tab Refills: 0 Commonly known as: IMDUR 60 mg, Oral, DAILY * isosorbide mononitrate 60 mg Tb24 Dose: 60 mg Qty: 30 Tab Refills: 1 Commonly known as: IMDUR 60 mg, Oral, DAILY metFORMIN 500 mg Tab Dose: 500 mg Refills: 0 Commonly known as: GLUCOPHAGE metoprolol 50 mg Tab Dose: 50 mg Qty: 60 Tab Refills: 0 Commonly known as: LOPRESSOR 50 mg, Oral, 2 TIMES DAILY nitroGLYCERIN 0.4 mg Subl [...] TABLET BY MOUTH EVERY 12 HOURS risperiDONE 1 mg Tab Dose: 2 mg Refills: 0 Commonly known as: RisperDAL roPINIRole 0.5 mg Tab Qty: 90 Tab Refills: 5 Commonly known as: REQUIP TALE 3 TABLET BY MOUTH DAILY FOR 1.5MG AT BEDTIME sertraline 100 mg Tab Dose: 200 mg Refills: 0 Commonly known as: ZOLOFT sitaGLIPtin 100 mg Tab Dose: 100 mg Refills: 0 Commonly known as: JANUVIA UNIFINE PENTIPS 32 gauge x 5/32 Ndle Qty: 30 Each Refills: 0 Generic drug: Insulin [place] (Disposable) USE WITH LANTUS ONCE DAILY venlafaxine 150 mg Cp24 Refills: 0 Commonly known as: EFFEXOR-XR * This list has 6 medication(s) that are the same as other medications prescribed for you. Read thedirections carefully, and ask your doctor or other care provider to review them with you. STOP taking these medications fUROsemide 40 mg Tab Commonly known as: LASix ibuprofen 600 mg Tab Commonly known as: ADVIL;MOTRIN lisinopril 5 mg Tab Commonly known as: PRINIVIL;ZESTril documented in this encounter Medications at Time of Discharge ferrous sulfate 325 mg (65 mg iron) [...] 2 tabs as needed 9 ARIPiprazole (ABILIFY) 10 mg Oral Tablet Take 30 mg by mouth 2 times daily. 7 buPROPion (WELLBUTRIN SR) 150 mg Oral Tablet Sustained Release 12 hr Take 150 mg by mouth daily. 7 gabapentin (NEURONTIN) 100 mg Oral Capsule Take 100 mg by mouth 3 times daily. Take 2 capsules by mouth 3 times daily 7 glipiZIDE (GLUCOTROL) 10 mg Oral Tablet Take 10 mg by mouth 2 times daily (with meals). 8 hydrOXYzine (ATARAX) 25 mg Oral TabletIndication s:anxiety Take 25 mg by mouth 2 times daily. Indications: ANXIETY 7 insulin glargine (LANTUS) 100 unit/mL SubQ SolutionIndicati ons:Peripheral motor neuropathy Inject 21 units at nighttime in subcutaneous area.May substitute pens if covered by insurance 10 mL 3 10/22/2016 7 insulin syringe,safetyne edle 1 mL 30 gauge x 5/16 Misc Syringe 1 Syringe by Misc.(Non-Drug; Combo Route) route nightly. 30 Syringe 1 08/04/2016 8 metFORMIN (GLUCOPHAGE) 500 mg Oral Tablet Take 500 mg by mouth 2 times daily. 8 NIFEdipine (PROCARDIA XL) 90 mg Oral Tablet Extended Rel 24 hr Take 1 Tab by mouth daily. 30 Tab 1 06/24/2016 8 nitroGLYCERIN (NITROSTAT) 0.4 mg SL Tablet, SublingualIndica tions:Angina pectoris (HCC) Place 1 Tab under the tongue every 5 minutes as needed for Chest pain. 20 Tab 2 11/19/2016 9 risperiDONE (RISPERDAL) 1 mg Oral Tablet Take 2 mg by mouth nightly. 7 roPINIRole (REQUIP) 0.5 mg Oral Tablet TALE 3 TABLET BY MOUTH DAILY FOR 1.5MG AT BEDTIME 90 Tab 5 11/26/2016 7 sitaGLIPtin (JANUVIA) 100 mg Oral Tablet Take 100 mg by mouth daily. 7 venlafaxine (EFFEXOR-XR) 150 mg Oral Capsule, Sust. Release 24 hr Take by mouth daily. 7 documented as of this encounter Discharge Disposition Disposition Code Departure Means Destination Home or Self Intermediate documented in this encounter Progress Notes * Emelia Meek RN - 12/22/2016 2:47 PM EDT [facility] back to [facility]. Care coordination set up transportation for the patient. Discharge paperwork reviewed with patient and all questions were answered. * Ela Cochran RN - 12/22/2016 12:25 PM EDT 12/22/16 1217 Final Note Actual Discharge Plan 12/22/16 CC Pt discharging today to her home at [facility]. [facility] contacted for transport. They will transport, and her ride will be here in the next hour. Staff notified.CC to follow for discharge. Discharge to (usp) DME Currently Used [facility] [employer] at discharge [facility] cab [facility] Completed Not Applicable Patient/Family Aware of Plan Yes MD Aware of Plan Yes RN Notified of Plan Yes * Axel Brunson MD - 12/22/2016 12:15 PM EDT Images from the original note were not included. [facility] Daily Progress Note Reason for consult:??JACK on CKD stage 3 ?? Subjective: No new complaints. ??States she feel fine ?? ROS:??+fatigue. ??No chest pain. ?? SHx:??No visitors this morning. Objective: VITALS: Vitals: 12/22/16 0959 BP: 171/77 Pulse: 62 Resp: 16 Temp: 97.4 ??F (36.3 ??C) SpO2: 92% Temp (24hrs), Av.1 ??F (36.7 ??C), Min:97.4 ??F (36.3 ??C), Max:98.8 ??F (37.1 ??C) BP Min: 141/54 Max: 171/77 Pulse Av.6 Min: 59 Max: 63 24HR INTAKE/OUTPUT: Intake/Output Summary (Last 24 hours) at 12/22/16 1215 Last data filed at 12/22/16 0510 Gross per 24 hour Intake 480 ml Output 0 ml Net 480 ml Wt Readings from Last 3 Encounters: 12/18/16 262 lb 3.2 oz (118.9 kg) 12/16/16 255 lb (115.7 kg) 11/19/16 255 lb (115.7 kg) Exam: Gen:NAD. ??Comfortable and pleasant. ENT: MMM, OP clear. CV: RRR no S3. ?? Lungs: CTA-B, normal respiratory effort Abd: S/NT +BS, no mass Ext: +BLE??edema. ??No cyanosis. Skin: Warm. ??No rashes appreciated. Data:- CBC: Recent Labs 12/18/16 1643 12/19/16 0937 12/21/16 0959 WBC 6.7 -- -- HGB 11.9* -- -- HCT 35.5* -- -- PLT 140* 120* 138* RENAL FUNCTION PANEL: Recent Labs 12/20/16 0621 12/21/16 0548 12/22/16 0548 NA 148* 143 142 K 3.9 3.8 4.6 CL 111* 101 102 CO2 24 24 26 BUN 26* 13 16 CREATININE 1.34* 0.96 1.09 CALCIUM 8.6* 8.9 9.4 Lab Results Component Value Date ALKPHOS 157 (H) 10/22/2016 ALT 9 10/22/2016 AST 9 10/22/2016 PROT 7.8 10/22/2016 LABBILI 0.4 10/22/2016 Recent Labs 12/18/16 1705 SPECGRAV >=1.030 UAPROTEIN Trace* BLOODU Negative NITRITE Negative LEUKOCYTESUR Negative WBCUA 3 RBCUA 0 Coagulation: Invalid input(s): PT ABGs: Microbiology: No results found for this visit on 12/18/16 (from the past 168 hour(s)). Scanned Rhythm Strips Result Date: 12/22/2016 Ordered by an unspecified provider. Assessment & Plan : 1. JACK on CKD stage 3: It appears her baseline Cr is 1.2-1.5. ??She has not followed with a milker machine prior to this admission ?? UA on admit??had little protein and no blood. ??Spec gravity was very concentrated, and her Cr is improving quickly with fluids and improvement in her blood pressure. ??I suspect her JACK was pre-renal with perhaps some ATN from hypotension. ??She was on lasix, ibuprofen, and lisinopril prior to admission. - ??Her underlying CKD is likely a combination of DM2 and HTN. ??Cr back to baseline. ? 2. HTN/hypotension: - ??Resumed home nifedipine and metoprolol. ??Holding ARABELLA and lasix still. ?? 3. DM2: ??On insulin. ??Her GFR is over 40 and she could restart metformin if needed, though I would do this with caution. ?? 4. Anemia of iron def: On po iron. ??May also have some degree of anemia from CKD. ??No indication for epo as her hgb is over 10. ? 5 Hypernatremia: ??Encourage po intake. Axel Brunson MD * Destini Marquez RN - 12/22/2016 6:24 AM EDT Patient rested well through the night with no complaints, VSS. Bed alarm in use, call light in reach. Will continue to monitor. * Mike Dunaway - 12/21/2016 4:25 PM EDT 12/21/16 1600 Pastoral Care Encounter Visited With Patient Date of visit 12/21/16 Visit Type Follow-up Need to follow-up? Yes Referral From Shank Faker Referral To Shank Faker Taoism Needs Prayer Pastoral Care Issues Pastoral Care Issues Relationship with God Pastoral Care Plan/Intervention Plan/Intervention Sacraments;Prayer 12/21/2016 Mike Dunaway * Axel Brunson MD - 12/21/2016 11:21 AM EDT Images from the original note were not included. [facility] Daily Progress Note Reason for consult: JACK on CKD stage 3 ?? Subjective: No new complaints. States she feel fine ?? ROS: +fatigue. No chest pain. ?? SHx: No visitors this morning. Objective: VITALS: Vitals: 12/21/16 0850 BP: 151/81 Pulse: 66 Resp: 18 Temp: 97.8 ??F (36.6 ??C) SpO2: 96% Temp (24hrs), Av.8 ??F (36.6 ??C), Min:97.4 ??F (36.3 ??C), Max:98.3 ??F (36.8 ??C) BP Min: 147/69 Max: 186/102 Pulse Av.2 Min: 56 Max: 68 24HR INTAKE/OUTPUT: Intake/Output Summary (Last 24 hours) at 12/21/16 1121 Last data filed at 12/21/16 0641 Gross per 24 hour Intake 1683.79 ml Output 100 ml Net 1583.79 ml Wt Readings from Last 3 Encounters: 12/18/16 262 lb 3.2 oz (118.9 kg) 12/16/16 255 lb (115.7 kg) 11/19/16 255 lb (115.7 kg) Exam: Gen: Resting in bed, NAD. Comfortable and pleasant. ENT: MMM, OP clear. CV: RRR no S3. Lungs: CTA-B Abd: S/NT +BS Ext: +BLE edema. No cyanosis. Skin: Warm. No rashes appreciated. Data:- CBC: Recent Labs 12/18/16 1643 12/19/16 0937 12/21/16 0959 WBC 6.7 -- -- HGB 11.9* -- -- HCT 35.5* -- -- PLT 140* 120* 138* RENAL FUNCTION PANEL: Recent Labs 12/19/16 0937 12/20/16 0621 12/21/16 0548 NA 145 148* 143 K 4.5 3.9 3.8 CL 107 111* 101 CO2 25 24 24 BUN 44* 26* 13 CREATININE 2.35* 1.34* 0.96 CALCIUM 8.8 8.6* 8.9 Lab Results Component Value Date ALKPHOS 157 (H) 10/22/2016 ALT 9 10/22/2016 AST 9 10/22/2016 PROT 7.8 10/22/2016 LABBILI 0.4 10/22/2016 Recent Labs 12/18/16 1705 SPECGRAV >=1.030 UAPROTEIN Trace* BLOODU Negative NITRITE Negative LEUKOCYTESUR Negative WBCUA 3 RBCUA 0 Coagulation: Invalid input(s): PT ABGs: Microbiology: No results found for this visit on 12/18/16 (from the past 168 hour(s)). Scanned Rhythm Strips Result Date: 12/21/2016 Ordered by an unspecified provider. Assessment & Plan : 1. JACK on CKD stage 3: It appears her baseline Cr is 1.2-1.5. ??She has not followed with a milker machine prior to this admission ?? UA on admit had little protein and no blood. ??Spec gravity was very concentrated, and her Cr is improving quickly with fluids and improvement in her blood pressure. ??I suspect her JACK was pre-renalwith perhaps some ATN from hypotension. ??She was on lasix, ibuprofen, and lisinopril prior to admission. - ??Her underlying CKD is likely a combination of DM2 and HTN. ??Cr back to baseline. ?? 2. HTN/hypotension: - ??Resumed home nifedipine and metoprolol. Holding ARABELLA and lasix still. ?? 3. DM2: ??On insulin. Her GFR is over 40 and she could restart metformin if needed, though I would do this with caution. ?? 4. Anemia of iron def: On po iron. ??May also have some degree of anemia from CKD. ??No indication for epo as her hgb is over 10. ? 5 Hypernatremia: Encourage po intake. Axel Brunson MD * Ela Cochran RN - 12/21/2016 11:02 AM EDT 12/21/16 1058 Assessment Complete ED Screening Completed Initial screening complete, post-acute needs identified, assessment to follow Actual Discharge Plan 12/21/16 CC Met with pt in the room. [facility] Pt states she is independent with her walker with wheels. Pt does attend [employer] from 830 to 230 Mon-Fri for activities. Pt has a PCP. Pt gets her scripts with no issues, and the staff at [facility] takes care of it. Pt states she uses [employer] transportation. CC to follow for discharge. Completed by CC/SW Yes Discharge to (usp) RRS Is patient score high risk on RRS score? No Care Coordination Assessment Observation Information Provided to Patient/Family N/A Assessed In person interview with patient Mental Status Alert and oriented Does patient need technology auditor? No Decision Maker Him/Herself Activities of Daily Living Needs Assistance Living Arrangements [facility]isted [facility] Where did the patient come from? [facility] Family Members;Agency Quality of Support System Good Recent decline in your ability to care for yourself physically? No DME Currently Used [facility] Financial Concerns No Obtain prescription meds at discharge? Medicare D/Medicaid Obtain follow up care after discharge? [facility] Discussed discharge plan with patient/family Yes * Ela Curiel - 12/21/2016 10:46 AM EDT 12/21/16 1045 Pastoral Care Encounter Visited With Patient Date of visit 12/21/16 Visit Type Follow-up Need to follow-up? Yes Taoism Needs Taoism articles (Rosary and Miraculous Medal) Spiritual Needs Denomination? Pentecostal Taoism Affiliation [facility] Contact Professor Of Fine Art/Jane Community Yes Has Pts jane community been notified Yes Pastoral Care Issues Comments will keep in prayer Pastoral Care Plan/Intervention Plan/Intervention Prayer Plan/Intervention Comments [facility] 12/21/2016 Ela Curiel * Jesse Crouch MD - 12/21/2016 9:12 AM EDT No acute events to speak of. Still awaiting this morning's BMP. Patient complaining of nausea and runny nose today, less complaint of swelling. Vitals: 12/20/16201212/21/16 0056 12/21/16 0417 12/21/16 0850 BP: 150/77 152/71 147/69 151/81 BP Location: Left arm Left arm Right arm Left arm Patient Position: Semi Fowlers Semi Fowlers Semi Fowlers Sitting Pulse: 63 58 56 66 Resp: Temp: 98 ??F (36.7 ??C) 97.6 ??F (36.4 ??C) 97.4 ??F (36.3 ??C) 97.8 ??F (36.6 ??C) TempSrc: Oral Oral Oral Oral SpO2: 98% 98% 96% 96% Weight: Height: Gen: Awake, alert CV: RRR. Less edema today Resp: Unlabored A/P Hypotension -- Good improvement with fluids. ?? Acute renal failure -- Good correction with fluids. Repeat labs pending. ?? DM -- Low dose protocol and coverage here ?? CHF -- Breathing is good. Developed some edema yesterday after fluid administrations but swelling is much improved today. HTN -- Nifedipine and Metoprolol With swelling down and Creatinine improved if her numbers look good today we might anticipate discharge very soon. Looking forward to labs and to Nephrology's thoughts. * Judith Nelson RN - 12/20/2016 11:20 PM EDT During first assessment patient complained that she did not sleep the night before, and would like something for sleep tonight. Contacted midlevel provider for new orders. Will continue to monitor. * Jesse Crouch MD - 12/20/2016 1:01 PM EDT Patient reports that she's swollen up upon receiving fluids through the day. Reports less generalized weakness but swelling is uncomfortable to her. Vitals: 12/20/16 0029 12/20/16 0355 12/20/16 0810 12/20/16 1124 BP: 181/70 181/83 (!) 201/90 (!) 186/102 BP Location: Left arm Left arm Left arm Left arm Patient Position: Semi Fowlers Semi Fowlers Semi Fowlers Pulse: 83 70 68 Resp: Temp: 98.2 ??F (36.8 ??C) 98.1 ??F (36.7 ??C) 98.3 ??F (36.8 ??C) TempSrc: Oral Oral Oral SpO2: 100% 94% 98% Weight: Height: Gen: Awake, alert CV: RRR. [place] of lower and upper extremities. Some puffiness of face. A/p Hypotension -- Good improvement with fluids. Now high. Appreciate nephrology direction and note restart of some home meds ?? Acute renal failure -- Good correction with fluids. Now struggling with some edema though post fluid administration. ?? DM -- Low dose protocol and coverage here ?? CHF -- Breathing is good but marked edema now. * Carlos Alberto Hassan MD - 12/20/2016 11:37 AM EDT Images from the original note were not included. Nephrology Progress Note [facility] Name: Faby Palm ADDRESS: [address] [place] [address] : 1950 AGE: 66 y.o. Reason for consult: JACK on CKD stage 3 Subjective: No new complaints. Not eating great today. ROS: +fatigue. No chest pain. SHx: No visitors this morning. Medications Current Facility-Administered Medications Medication Dose Route Frequency Provider Last Rate Last Dose ??? ARIPiprazole (ABILIFY) tablet 30 mg 30 mg Oral Daily Jesse Crouch MD 30 mg at 12/20/16 1134 ??? dextrose 50 % solution 25 mL 25 mL Intravenous PRN Jesse Crouch MD ??? glucagon (human recombinant) (GLUCAGEN) injection 1 mg 1 mg Intramuscular PRN Jesse Crouch MD ??? heparin, porcine (PF) injection 5,000 Units 5,000 Units Subcutaneous 3 times per day Jesse Crouch MD 5,000 Units at 12/20/16 0638 ??? insulin aspart (NovoLOG) injection 1-5 Units 1-5 Units Subcutaneous QID Jesse Crouch MD 1 Units at 12/20/16 0952 ??? insulin aspart (NovoLOG) injection 3 Units 3 Units Subcutaneous TID Jesse Crouch MD 3Units at 12/20/16 0952 ??? insulin glargine (LANTUS) injection 10 Units 10 Units Subcutaneous QPM (Insulin) Jesse Crouch MD 10 Units at 12/19/16 1856 ??? miconazole (MICATIN) 2 % powder Topical 2 times per day Jesse Crouch MD ??? miconazole (MICATIN) 2 % powder Topical PRN Jesse Crouch MD ??? risperiDONE (RisperDAL) tablet 2 mg 2 mg Oral Nightly Jesse Crouch MD 2 mg at 12/19/16 2131 ??? venlafaxine (EFFEXOR-XR) XR capsule 150 mg 150 mg Oral Daily Jesse Crouch MD 150 mg at 12/20/16 0815 Physical Examination Patient Vitals for the past 24 hrs: BP Temp Temp src Pulse Resp SpO2 12/20/16 1124 (!) 186/102 98.3 ??F (36.8 ??C) Oral 68 18 98 % 12/20/16 0810 (!) 201/90 98.1 ??F (36.7 ??C) Oral 70 16 94 % 12/20/16 0355 181/83 98.2 ??F (36.8 ??C) Oral 83 22 100 % 12/20/16 0029 181/70 - - - - - 12/20/16 0016 (!) 163/114 98.3 ??F (36.8 ??C) Oral 78 23 100 % 12/19/16 2113 168/75 98.2 ??F (36.8 ??C) Oral 73 17 99 % 12/19/16 1721 99/45 98.1 ??F (36.7 ??C) Oral 70 18 99 % 12/19/16 1718 163/69 - - - - - 12/19/16 1715 135/64 - - - - - 12/19/16 1256 142/59 98 ??F (36.7 ??C) Oral 70 18 97 % Gen: Resting in bed, NAD. Comfortable and pleasant. ENT: MMM, OP clear. CV: RRR no S3. Lungs: CTA-B Abd: S/NT +BS Ext: +BLE edema. No cyanosis. Skin: Warm. No rashes appreciated. Laboratory: CBC: Lab Results Component Value Date WBC 6.7 12/18/2016 WBC 7.3 11/10/2016 RBC 4.00 12/18/2016 RBC 4.15 11/10/2016 HGB 11.9 (L) 12/18/2016 HGB 12.1 11/10/2016 HCT 35.5 (L) 12/18/2016 HCT 36.2 11/10/2016 MCV 88.7 12/18/2016 MCV 87.2 11/10/2016 MCHC 33.5 12/18/2016 MCHC 33.5 11/10/2016 RDW 14.3 12/18/2016 RDW 14.6 11/10/2016 PLT 120 (L) 12/19/2016 PLT 148 11/10/2016 MPV 10.0 12/19/2016 MPV 9.5 11/10/2016 BMP: Lab Results Component Value Date NA 148 (H) 12/20/2016 NA 138 11/10/2016 K 3.9 12/20/2016 K 4.3 11/10/2016 CL 111 (H) 12/20/2016 CL 101 11/10/2016 CO2 24 12/20/2016 CO2 28 11/10/2016 BUN 26 (H) 12/20/2016 BUN 15 11/10/2016 CREATININE 1.34 (H) 12/20/2016 CREATININE 1.18 11/10/2016 CALCIUM 8.6 (L) 12/20/2016 CALCIUM 9.2 11/10/2016 GFRAFRAM 48 12/20/2016 GFRAFRAM 56 11/10/2016 GFRNONAFRAM 42 12/20/2016 GFRNONAFRAM 46 11/10/2016 GLU 135 (H) 12/20/2016 GLU 134 (H) 11/10/2016 A/P: 1. JACK on CKD stage 3: It appears her baseline Cr is 1.2-1.5. She has not followed with a milker machine. UA on admit had little protein and no blood. Spec gravity was very concentrated, and her Cr is improving quickly with fluids and improvement in her blood pressure. I suspect her JACK was pre-renalwith perhaps some ATN from hypotension. She was on lasix, ibuprofen, and lisinopril prior to admission. Her underlying CKD is likely a combination of DM2 and HTN. Cr back to baseline. Give a little D5W today as her sodium is up. ?? 2. HTN/hypotension: We have been holding BP meds and now her BP is running higher. Resume home nifedipine and metoprolol. Holding ARABELLA and lasix still. ?? 3. DM2: On insulin. Her GFR is over 40 and she could restart metformin if needed, though I would dothis with caution. ?? 4. Anemia of iron def: On po iron. May also have some degree of anemia from CKD. No indication for epo as her hgb is over 10. ?? 5. Thrombocytopenia: This appears chronic. Her platlets seem to run mostly 150-200. 6. Hypernatremia: Give 1L D5W today. Encourage po intake. Carlos Alberto Hassan MD FACP, FASN, RPVI * Jacqueline Anderson RN - 12/19/2016 6:43 PM EDT Patient pleasant and cooperative, ambulating with walker to bathroom with assist X1. Orthostatics MD alena made aware of result. * Destini Quintanilla, Cnc Milling Machine Operator - 12/19/2016 5:39 PM EDT 12/19/16 1715 12/19/16 1718 12/19/16 1721 Vitals BP 135/64 163/69 99/45 BP Location Left arm Left arm Left arm BP Method Automatic Automatic Automatic Patient Position Supine Semi Fowlers Standing * Mike Dunaway - 12/19/2016 3:58 PM EDT 12/19/16 1500 Pastoral Care Encounter Visited With Patient Date of visit 12/19/16 Visit Type Initial Need to follow-up? Yes Taoism Needs Prayer Sacramental Needs Has Patient Received SOS? Yes Date of Sacrament of the Sick (Anointing) 12/19/16 Pastoral Care Plan/Intervention Plan/Intervention [facility]raments;Prayer 12/19/2016 Mike Dunaway documented in this encounter H&P Notes * Jesse Crouch MD - 12/19/2016 9:51 AM EDT Chief Complaint Patient presents with ??? Weakness was weak for a day in [facility]. EMS found blood pressure in the 70's and pt is bradycardic. HPI Patient is a 66 y/o woman who was [facility] in [facility] with complaint of weakness. Her insight is a little limited which complicates her ability to provide a history. She states that for about a day she's been feeling weak whenever she walks. She describes her legs feeling wobbly and forcing her to sit every time she tries to rise to a standing position and walk. She cannot think of anything to set this off. She states that symptoms are worse upon standing but that nothing else makesthen better or worse on her. She recalls the symptoms being present yesterday but she cannot tell me how long they may have been going on before this. ROS was performed and was limited due to her insight but was negative except as above. Past Medical History: Diagnosis Date ??? Atrial flutter (HCC) EPS, AFL Ablation on 12/31/[address] Tee ??? CHF (congestive heart failure) (HCC) ??? COPD (chronic obstructive pulmonary disease) (HCC) ??? DDD (degenerative disc disease) ??? Diabetes mellitus (HCC) ??? Hypertension ??? RLS (restless legs syndrome) ??? Stroke (HCC) 2010 left side affected ??? Suicide attempt ??? Yeast infection recurrent Social History Social History ??? Marital status: [...] on file Social History Narrative Lives at [facility] Has two children and two grandchildren. Is Family History Problem Relation Age of Onset ??? Cancer Mother larnyx cancer ??? Heart Disease Sister ??? No Known Problems Son ??? Seizures Daughter Past Surgical History: Procedure Laterality Date ??? ABLATION OF DYSRHYTHMIC FOCUS 12/31/2015 atrial flutter ablation by Dr. Tee ??? ANKLE SURGERY ??? BREAST SURGERY ??? JOINT REPLACEMENT left total knee replacement 1999 ??? LUNG SURGERY ??? ORTHOPEDIC SURGERY ??? TONSILLECTOMY ??? UPPER GASTROINTESTINAL ENDOSCOPY N/A 04/03/2015 ESOPHAGOGASTRODUODENOSCOPY WITH BIOPSY AND BRUSHING; Surgeon: Chrissy Brown MD; Location: [facility]; Service: Endoscopy PE Vitals: 12/18/16 1838 12/18/16200012/18/16 2344 12/19/16 0447 BP: 110/49 101/46 124/68 BP Location: Right arm Right arm Right arm Patient Position: Semi Fowlers Semi Fowlers Semi Fowlers Pulse: 56 57 64 71 Resp: 12 12 12 12 Temp: 97.2 ??F (36.2 ??C) 97.2 ??F (36.2 ??C) 97.3 ??F (36.3 ??C) TempSrc: Oral Oral Oral SpO2: 98% 100% 98% 96% Weight: Height: Gen: Patient is awake, alert. HEENT: Pupils are equal, round. Mucous membranes are moist. Hearing is grossly intact. Neck: Supple, full range of motion Lymph: No cervical lymphadenopathy CV: Heart is regular in rate and rhythm. No murmurs, rubs, or gallops are appreciated. Peripheral pulses are strong and symmetrical. No edema. Resp: Lungs are clear to ausculation bilaterally. Abd: Abdomen is soft, nontender, nondistended. I appreciate no hepatosplenomegaly or masses. Bowel sounds are normal. Ext: No clubbing or cyanosis. Appropriate range of motion. Skin: I appreciate no lesions or exanthem Neuro: Cranial nerves 2-12 are intact. Patient has normal strength in bilateral upper and lower extremities. Psych: Pleasant with appropriate mood. Insight is a little limited but affect is full. A/P Hypotension -- Improved today without much in the way of intervention beyond fluids and holding home medications. Patient is in renal failure and I wonder which problem preceded the other. Continue to hold BP meds now and follow pressures. Getting orthostatic vitals. Acute renal failure -- Working to get complete med list from her facility but she's been on a number of potentially nephrotoxic medications. With hypotension there could also be a large prerenal component. Repeat labs now. Asking nephrology to review her case. DM -- Low dose protocol and coverage here CHF -- Follow here as we give fluids. documented in this encounter Consult Notes * Carlos Alberto Hassan MD - 12/19/2016 10:41 AM EDTAssociated Order(s): IP CONSULT TO NEPHROLOGY Images from the original note were not included. [facility] Nephrology Consult Name: Faby Palm ADDRESS: [address] [place] [address] : 1950 AGE: 66 y.o. Hospital: Primary Care Physician: Sharee Segovia ARNP Date of Admission: 12/18/2016 Date of Consultation: 12/19/2016 Reason for Consult: JACK History of Presenting Illness Faby Palm is a(n) 66 y.o. female with a history of CHF, COPD, DM2, and HTN who [facility] with [facility] x 1 day. She noted weakness to the point that she couldn't walk. No hematuria, foamy urine, or change in some chronic leg swelling. She tells me she was eating well. She was significantly hypotensive on presentation, which systolics in the 70's. Her appetite has been great in the last few days by her report. No chest pain, fevers, or shortness of breath. No history ofrenal disease. Review of Systems: Pertinent ROS noted in HPI. Otherwise negative for all systems. Medications Prescriptions Prior to Admission Medication Sig Dispense Refill Last Dose ??? acetaminophen 325 mg Oral Tab Take 650 mg by mouth every 4 hours as needed for Pain. Taking at Unknown time ??? amitriptyline (ELAVIL) 75 mg Oral Tablet TAKE ONE TABLET BY MOUTH NIGHTLY 30 Tab 0 Taking at Unknown time ??? ARIPiprazole (ABILIFY) 10 mg Oral Tablet Take 30 mg by mouth 2 times daily. Taking at Unknown time ??? ferrous sulfate 325 mg (65 mg iron) Oral Tablet Take 1 Tab by mouth 2 times daily (with meals).60 Tab 5 Taking at Unknown time ??? gabapentin (NEURONTIN) 100 mg Oral Capsule Take 100 mg by mouth 3 times daily. Take 2 capsules by mouth 3 times daily Taking at Unknown time ??? glipiZIDE (GLUCOTROL) 10 mg Oral Tablet Take 10 mg by mouth 2 times daily (with meals). Taking at Unknown time ??? hydrOXYzine (ATARAX) 25 mg Oral Tablet Take 25 mg by mouth 2 times daily. Indications: ANXIETY Taking at Unknown time ??? lisinopril (PRINIVIL;ZESTRIL) 5 mg Oral Tablet TAKE 1 TABLET BY MOUTH DAILY 30 Tab 5 Taking at Unknown time ??? NIFEdipine (PROCARDIA XL) 90 mg Oral Tablet Extended Rel 24 hr Take 1 Tab by mouth daily. 30 Tab 1 Taking at Unknown time ??? pantoprazole (PROTONIX) 40 mg Oral Tablet, Delayed Release (E.C.) TAKE ONE TABLET BY MOUTH ONCEDAILY 30 Tab 6 Taking at Unknown time ??? risperiDONE (RISPERDAL) 1 mg Oral Tablet Take 2 mg by mouth nightly. Taking at Unknown time ??? roPINIRole (REQUIP) 0.5 mg Oral Tablet TALE 3 TABLET BY MOUTH DAILY FOR 1.5MG AT BEDTIME 90 Tab5 Taking at Unknown time ??? sitaGLIPtin (JANUVIA) 100 mg Oral Tablet Take 100 mg by mouth daily. Taking at Unknown time ??? venlafaxine (EFFEXOR-XR) 150 mg Oral Capsule, Sust. Release 24 hr Take by mouth daily. Taking at Unknown time ??? aspirin 81 mg Oral Tablet, Delayed Release (E.C.) Take 81 mg by mouth daily. Taking ??? atorvastatin (LIPITOR) 20 mg Oral Tablet Take 1 Tab by mouth nightly. 30 Tab 1 Taking ??? atorvastatin (LIPITOR) 20 mg Oral Tablet Take 1 Tab by mouth nightly. 14 Tab 0 Taking ??? buPROPion (WELLBUTRIN SR) 150 mg Oral Tablet Sustained Release 12 hr Take 150 mg by mouth daily. Taking ??? fUROsemide (LASIX) 40 mg Oral Tablet Take 1 Tab by mouth daily. 30 Tab 2 Taking ??? ibuprofen (ADVIL;MOTRIN) 600 mg Oral Tablet Take 1 Tab by mouth every 6 hours as needed for Pain. 160 Tab 2 Taking ??? insulin glargine (LANTUS) 100 unit/mL SubQ Solution Inject 21 units at nighttime in subcutaneous area.May substitute pens if covered by insurance 10 mL 3 Taking ??? insulin syringe,safetyneedle 1 mL 30 gauge x 5/16 Misc Syringe 1 Syringe by [facility]Non-Drug; Combo Route) route nightly. 30 Syringe 1 Taking ??? isosorbide mononitrate (IMDUR) 60 mg Oral Tablet Sustained Release 24 hr Take 1 Tab by mouth daily. 30 Tab 1 Taking ??? isosorbide mononitrate (IMDUR) 60 mg Oral Tablet Sustained Release 24 hr Take 1 Tab by mouth daily. 14 Tab 0 Taking ??? LANTUS SOLOSTAR 100 unit/mL (3 mL) SubQ Insulin Pen INJECT 15 UNITS UNDER THE SKIN EVERY EVENING 15 mL 0 Taking ??? metFORMIN (GLUCOPHAGE) 500 mg Oral Tablet Take 500 mg by mouth 2 times daily. Taking ??? metoprolol (LOPRESSOR) 50 mg Oral Tablet Take 1 Tab by mouth 2 times daily. 60 Tab 0 Taking ??? NIFEdipine (PROCARDIA XL) 90 mg Oral Tablet Extended Rel 24 hr TAKE ONE TABLET BY MOUTH DAILY 30 Tab 2 Taking ??? nitroGLYCERIN (NITROSTAT) 0.4 mg SL Tablet, Sublingual Place 1 Tab under the tongue every 5 minutes as needed for Chest pain. 20 Tab 2 Taking ??? RANEXA 1,000 mg Oral Tablet Sustained Release 12 hr TAKE ONE TABLET BY MOUTH EVERY 12 HOURS 60 Tab 0 Taking ??? sertraline (ZOLOFT) 100 mg Oral Tablet Take 200 mg by mouth daily. Reported on 08/12/2016 Taking ??? UNIFINE PENTIPS 32 gauge x 32 Misc Needle USE WITH LANTUS ONCE DAILY 30 Each 0 Taking Current Facility-Administered Medications Medication Dose Route Frequency Provider Last Rate Last Dose ??? 0.9 % NaCl infusion Intravenous Continuous LeJeanette MD Stopped at 12/19/16 1035 ??? ARIPiprazole (ABILIFY) tablet 30 mg 30 mg Oral Daily Jesse Crouch MD ??? dextrose 50 % solution 25 mL 25 mL Intravenous PRN Jesse Crouch MD ??? glucagon (human recombinant) (GLUCAGEN) injection 1 mg 1 mg Intramuscular PRN Jesse Crouch MD ??? heparin, porcine (PF) injection 5,000 Units 5,000 Units Subcutaneous 3 times per day Jesse Crouch MD ??? insulin aspart (NovoLOG) injection 1-5 Units 1-5 Units Subcutaneous QID Jesse Crouch MD ??? insulin aspart (NovoLOG) injection 3 Units 3 Units Subcutaneous TID Jesse Crouch MD ??? insulin glargine (LANTUS) injection 10 Units 10 Units Subcutaneous QPM (Insulin) Jesse Crouch MD ??? miconazole (MICATIN) 2 % powder Topical 2 times per day Jesse Crouch MD ??? miconazole (MICATIN) 2 % powder Topical PRN Jesse Crouch MD ??? risperiDONE (RisperDAL) tablet 2 mg 2 mg Oral Nightly Jesse Crouch MD ??? venlafaxine (EFFEXOR-XR) XR capsule 150 mg 150 mg Oral Daily Jesse Crouch MD Allergies Allergen Reactions ??? Compazine [Prochlorperazine Edisylate] ??? [address] ??? Pentazocine Hcl ??? Prochlorperazine Maleate ??? Talwin [Pentazocine Lactate] Past Medical History: Diagnosis Date ??? Atrial flutter (HCC) EPS, AFL Ablation on 12/31/[address] Tee ??? CHF (congestive heart failure) (HCC) ??? COPD (chronic obstructive pulmonary disease) (HCC) ??? DDD (degenerative disc disease) ??? Diabetes mellitus (HCC) ??? Hypertension ??? RLS (restless legs syndrome) ??? Stroke (HCC) 2010 left side affected ??? Suicide attempt ??? Yeast infection recurrent Past Surgical History: Procedure Laterality Date ??? ABLATION OF DYSRHYTHMIC FOCUS 12/31/2015 atrial flutter ablation by Dr. Tee ??? ANKLE SURGERY ??? BREAST SURGERY ??? JOINT REPLACEMENT left total knee replacement 1999 ??? LUNG SURGERY ??? ORTHOPEDIC SURGERY ??? TONSILLECTOMY ??? UPPER GASTROINTESTINAL ENDOSCOPY N/A 04/03/2015 ESOPHAGOGASTRODUODENOSCOPY WITH BIOPSY AND BRUSHING; Surgeon: Chrissy Brown MD; Location: [facility]; Service: Endoscopy Family History Problem Relation Age of Onset ??? Cancer Mother larnyx cancer ??? Heart Disease Sister ??? No Known Problems Son ??? Seizures Daughter Social History: Faby's social history reviewed. Physical Examination Patient Vitals for the past 24 hrs: BP Temp Temp src Pulse Resp SpO2 Height Weight 12/19/16 1033 154/87 97.9 ??F (36.6 ??C) Oral 70 16 97 % - - 12/19/16 0447 124/68 97.3 ??F (36.3 ??C) Oral 71 12 96 % - - 12/18/16 2344 101/46 97.2 ??F (36.2 ??C) Oral 64 12 98 % - - 12/18/16 2001 110/49 97.2 ??F (36.2 ??C) Oral 57 12 100 % - - 12/18/16 1838 - - - 56 12 98 % - - 12/18/16 1816 95/40 - - 56 17 98 % - - 12/18/16 1740 98/57 - - 52 13 93 % - - 12/18/16 1732 - - - 53 13 98 % - - 12/18/16 1731 (!) 88/43 - - 52 18 94 % - - 12/18/16 1651 93/44 - - 54 12 98 % - - 12/18/16 1605 94/43 98.1 ??F (36.7 ??C) Oral 55 - 92 % 5' 8 (1.727 m) 262 lb 3.2 oz (118.9 kg) 12/18/16 1603 - - Oral - 14 - - - Gen: Resting in bed, comfortable and pleasant. Eyes: No icterus, nl conjunctiva. ENT: MMM, OP clear. Neck: Supple, no carotid bruits appreciated. CV: RRR no m/r/g. No S3. Lungs: CTA-B Abd: S/NT +BS Ext: +BLE edema. No cyanosis. Skin: Warm, no rashes appreciated. : Non-distened bladder. Not TTP. Neuro: Alert and oriented x 3, nonfocal. Laboratory: CBC: Lab Results Component Value Date WBC 6.7 12/18/2016 WBC 7.3 11/10/2016 RBC 4.00 12/18/2016 RBC 4.15 11/10/2016 HGB 11.9 (L) 12/18/2016 HGB 12.1 11/10/2016 HCT 35.5 (L) 12/18/2016 HCT 36.2 11/10/2016 MCV 88.7 12/18/2016 MCV 87.2 11/10/2016 MCHC 33.5 12/18/2016 MCHC 33.5 11/10/2016 RDW 14.3 12/18/2016 RDW 14.6 11/10/2016 PLT 120 (L) 12/19/2016 PLT 148 11/10/2016 MPV 10.0 12/19/2016 MPV 9.5 11/10/2016 BMP: Lab Results Component Value Date NA 145 12/19/2016 NA 138 11/10/2016 K 4.5 12/19/2016 K 4.3 11/10/2016 CL 107 12/19/2016 CL 101 11/10/2016 CO2 25 12/19/2016 CO2 28 11/10/2016 BUN 44 (H) 12/19/2016 BUN 15 11/10/2016 CREATININE 2.35 (H) 12/19/2016 CREATININE 1.18 11/10/2016 CALCIUM 8.8 12/19/2016 CALCIUM 9.2 11/10/2016 GFRAFRAM 24 12/19/2016 GFRAFRAM 56 11/10/2016 GFRNONAFRAM 21 12/19/2016 GFRNONAFRAM 46 11/10/2016 GLU 140 (H) 12/19/2016 GLU 134 (H) 11/10/2016 A/P: 1. JACK on CKD stage 3: It appears her baseline Cr is 1.2-1.5. She has not followed with a milker machine. UA yesterday had little protein and no blood. Spec gravity was very concentrated, and her Cr isimproving quickly with fluids and improvement in her blood pressure. I suspect her JACK was pre-renal with perhaps some ATN from hypotension. She was on lasix, ibuprofen, and lisinopril prior to admission. Her underlying CKD is likely a combination of DM2 and HTN. Continue supportive care, avoid nephrotoxins. BP improved, avoid further hypotension. 2. HTN/hypotension: Holding BP meds and now her BP is running higher. Off IV fluids and eating well. Holding lasix. If her BP runs too high, I would restart nifedipine first. 3. DM2: Avoid metformin as long as her GFR is under 40. On insulin. 4. Anemia of iron def: On po iron. May also have some degree of anemia from CKD. No indication for epo as her hgb is over 10. 5. Thrombocytopenia: This appears chronic. Her platlets seem to run mostly 150- 200. Recheck as theyare trending down a bit. Thank you for allowing me to participate in the care of Faby Palm. I will continue to follow along. Please call with questions. Carlos Alberto Hassan MD FACP, FASN, RPVI documented in this encounter ED Notes * Claire Villeda RN - 12/18/2016 6:43 PM EDT Report called to TCU RN * Jeanette Santos MD - 12/18/2016 4:03 PM EDT Chief Complaint Patient presents with ??? Weakness was weak for a day in [facility]. EMS found blood pressure in the 70's and pt is bradycardic. The patient is a 66 years old female who is brought into the ED with complaint of general weakness and hypotension. Patient reported feeling weak today. She had no other specific complaint. There is no chest pain and abdominal pain. She denies any nausea or vomiting. She is hypotensive with systolic blood pressure of 70. She is also bradycardic per EMS. On arrival to the patient is awake and alert. She had no specific complaint. She is on multiple blood pressure medication. There is no recent change in medication. She had no fever. There is no urinary complaint. History provided by: Patient and EMS personnel Patient History Allergies Allergen Reactions ??? Compazine [Prochlorperazine Edisylate] ??? [address] ??? Pentazocine Hcl ??? Prochlorperazine Maleate ??? Talwin [Pentazocine Lactate] Home Medications: Prior to Admission medications Medication Sig Start Date End Date Taking? Authorizing Provider acetaminophen 325 mg Oral Tab Take 650 mg by mouth every 4 hours as needed for Pain. Yes Provider, Historical amitriptyline (ELAVIL) 75 mg Oral Tablet TAKE ONE TABLET BY MOUTH NIGHTLY 11/26/16 Yes Joanna Pierce MD ARIPiprazole (ABILIFY) 10 mg Oral Tablet Take 30 mg by mouth 2 times daily. Yes Provider, Historical ferrous sulfate 325 mg (65 mg iron) Oral Tablet Take 1 Tab by mouth 2 times daily (with meals). 04/04/15 Yes Campbell Huston MD gabapentin (NEURONTIN) 100 mg Oral Capsule Take 100 mg by mouth 3 times daily. Take 2 capsules by mouth 3 times daily Yes Provider, Historical glipiZIDE (GLUCOTROL) 10 mg Oral Tablet Take 10 mg by mouth 2 times daily (with meals). Yes Provider, Historical hydrOXYzine (ATARAX) 25 mg Oral Tablet Take 25 mg by mouth 2 times daily. Indications: ANXIETY Yes Provider, Historical lisinopril (PRINIVIL;ZESTRIL) 5 mg Oral Tablet TAKE 1 TABLET BY MOUTH DAILY 11/17/16 Yes Joanna Pierce MD NIFEdipine (PROCARDIA XL) 90 mg Oral Tablet Extended Rel 24 hr Take 1 Tab by mouth daily. 06/24/16 Yes Campbell Huston MD pantoprazole (PROTONIX) 40 mg Oral Tablet, Delayed Release (E.C.) TAKE ONE TABLET BY MOUTH ONCE DAILY 11/26/16 Yes Joanna Pierce MD risperiDONE (RISPERDAL) 1 mg Oral Tablet Take 2 mg by mouth nightly. Yes Provider, Historical roPINIRole (REQUIP) 0.5 mg Oral Tablet TALE 3 TABLET BY MOUTH DAILY FOR 1.5MG AT BEDTIME 11/26/16 Yes Joanna Pierce MD sitaGLIPtin (JANUVIA) 100 mg Oral Tablet Take 100 mg by mouth daily. Yes Provider, Historical venlafaxine (EFFEXOR-XR) 150 mg Oral Capsule, Sust. Release 24 hr Take by mouth daily. Yes Provider, Historical aspirin 81 mg Oral Tablet, Delayed Release (E.C.) Take 81 mg by mouth daily. Provider, Historical atorvastatin (LIPITOR) 20 mg Oral Tablet Take 1 Tab by mouth nightly. 11/17/16 oJanna Pierce MD atorvastatin (LIPITOR) 20 mg Oral Tablet Take 1 Tab by mouth nightly. 10/28/16 Joanna Pierce MD buPROPion (WELLBUTRIN SR) 150 mg Oral Tablet Sustained Release 12 hr Take 150 mg by mouth daily. Provider, Historical fUROsemide (LASIX) 40 mg Oral Tablet Take 1 Tab by mouth daily. 11/19/16 Sharee Segovia ARNP ibuprofen (ADVIL;MOTRIN) 600 mg Oral Tablet Take 1 Tab by mouth every 6 hours as needed for Pain. 09/21/16 Sharee Segovia ARNP insulin glargine (LANTUS) 100 unit/mL SubQ Solution Inject 21 units at nighttime in subcutaneous area.May substitute pens if covered by insurance 10/22/16 Sharee Segovia ARNP insulin syringe,safetyneedle 1 mL 30 gauge x 07/21 [facility] Syringe 1 Syringe by [facility].(Non-Drug; Combo Route) route nightly. 08/04/16 Joanna Pierce MD isosorbide mononitrate (IMDUR) 60 mg Oral Tablet Sustained Release 24 hr Take 1 Tab by mouth daily.11/17/16 Joanna Pierce MD isosorbide mononitrate (IMDUR) 60 mg Oral Tablet Sustained Release 24 hr Take 1 Tab by mouth daily.10/28/16 Joanna Pierce MD LANTUS SOLOSTAR 100 unit/mL (3 mL) SubQ Insulin Pen INJECT 15 UNITS UNDER THE SKIN EVERY EVENING 12/11/16 Joanna Pierce MD metFORMIN (GLUCOPHAGE) 500 mg Oral Tablet Take 500 mg by mouth 2 times daily. Provider, Historical metoprolol (LOPRESSOR) 50 mg Oral Tablet Take 1 Tab by mouth 2 times daily. 10/15/16 Deena Waldron MD NIFEdipine (PROCARDIA XL) 90 mg Oral Tablet Extended Rel 24 hr TAKE ONE TABLET BY MOUTH DAILY 11/26/16 Joanna Pierce MD nitroGLYCERIN (NITROSTAT) 0.4 mg SL Tablet, Sublingual Place 1 Tab under the tongue every 5 minutesas needed for Chest pain. 11/19/16 Sharee Segovia ARNP RANEXA 1,000 mg Oral Tablet Sustained Release 12 hr TAKE ONE TABLET BY MOUTH EVERY 12 HOURS 12/04/16Joanna Pierce MD sertraline (ZOLOFT) 100 mg Oral Tablet Take 200 mg by mouth daily. Reported on 08/12/2016 Provider, Historical UNIFINE PENTIPS 32 gauge x 5/32 Misc Needle USE WITH LANTUS ONCE DAILY 12/11/16 Joanna Pierce MD Past Medical History: Past Medical History: Diagnosis Date ??? Atrial flutter (HCC) EPS, AFL Ablation on 12/31/[address] Tee ??? CHF (congestive heart failure) (HCC) ??? COPD (chronic obstructive pulmonary disease) (HCC) ??? DDD (degenerative disc disease) ??? Diabetes mellitus (HCC) ??? Hypertension ??? RLS (restless legs syndrome) ??? Stroke (HCC) 2010 left side affected ??? Suicide attempt ??? Yeast infection recurrent Social History: reports [...] Tee ??? ANKLE SURGERY ??? BREAST SURGERY ??? JOINT REPLACEMENT left total knee replacement 1999 ??? LUNG SURGERY ??? ORTHOPEDIC SURGERY ??? TONSILLECTOMY ??? UPPER [...] Skin: Negative for rash. Neurological: Positive for weakness. Psychiatric/Behavioral: Negative. All other systems reviewed and are negative. Physical Exam Blood pressure (!) 88/43, pulse 53, temperature 98.1 ??F (36.7 ??C), temperature source Oral, resp.rate 13, height 5' 8 (1.727 m), weight 262 lb 3.2 oz (118.9 kg), SpO2 98 %. Physical Exam Constitutional: She appears well-developed and well-nourished. HENT: Mouth/Throat: Oropharynx is clear and moist. Pupils are equal and reactive. Conjunctiva are clear. Oral mucosa is moist. Posterior pharynx is within normal limits. No exudate noted. Neck supple without meningismus. No cervical adenopathy. Eyes: Conjunctivae and EOM are normal. Pupils are equal, round, and reactive to light. Neck: Normal range of motion. Neck supple. Cardiovascular: Normal rate and regular rhythm. Exam reveals no gallop and no friction rub. No murmur heard. Pulmonary/Chest: Effort normal and breath sounds normal. Abdominal: Soft. Bowel sounds are normal. She exhibits no distension. There is no tenderness. Abdomen is soft and nontender. Musculoskeletal: Normal range of motion. She exhibits no edema. Lymphadenopathy: She has no cervical adenopathy. Neurological: Patient is awake alert and oriented ??3. There is left-sided weakness from prior stroke. Skin: Skin is warm and dry. No rash noted. Psychiatric: She has a normal mood and affect. Nursing note and vitals reviewed. Procedures Radiology/EKG/Labs: Results for orders placed or performed during the hospital encounter of 12/18/16 XR CHEST AP PORTABLE Narrative XR CHEST AP PORTABLE 12/18/2016 5:20 PM CLINICAL: -WEAKNESS COMPARISON: 11/10/2016 FINDINGS: Cardiopericardial silhouette and mediastinum are within normal limits. Ill-defined nodular opacity right midlung unchanged. This appears ribs a healing fracture. Lungs clear of acute infiltrate. Impression No acute disease. CBC WITH DIFF Result Value Ref Range WBC 6.7 4.0 - 11.0 x10(3)/mcL RBC 4.00 3.80 - 5.10 x10(6)/mcL Hgb 11.9 (L) 12.0 - 15.6 gm/dL Hct 35.5 (L) 35.7 - 45.9 % MCV 88.7 82.5 - 99.8 fL MCH 29.7 27.0 - 34.3 pg MCHC 33.5 32.1 - 35.3 gm/dL RDW 14.3 11.5 - 15.0 % Platelet 140 (L) 144 - 423 x10(3)/mcL MPV 10.0 6.8 - 10.8 fL Neut Percent 73.3 % Lymph Percent 17.3 % [place] Percent 7.1 % Eos Percent 1.5 % Baso Percent 0.8 % Neut # 4.9 1.8 - 7.7 x10(3)/mcL Lymph # 1.2 0.6 - 4.8 x10(3)/mcL [place] # 0.5 0.0 - 1.3 x10(3)/mcL Eos# 0.1 0.0 - 0.5 x10(3)/mcL Baso # 0.1 0.0 - 0.2 x10(3)/mcL BASIC METABOLIC PANEL Result Value Ref Range Sodium 142 136 - 145 mmol/L Potassium 4.7 3.5 - 5.0 mmol/L Chloride 103 98 - 107 mmol/L Total CO2 25 22 - 29 mmol/L Anion Gap 14 7 - 16 mmol/L Calcium 8.7 (L) 8.8 - 10.2 mg/dL Glucose Lvl 130 (H) 82 - 100 mg/dL BUN 53 (H) 8 - 23 mg/dL Creatinine 3.58 (H) 0.51 - 1.30 mg/dL GFR Afr Am 15 mL/min/1.73 m2 GFR Non Afr Am 13 mL/min/1.73 m2 TROPONIN-T Result Value Ref Range Troponin-T 0.01 (H) <0.01 ng/mL Narrative Values > or = 0.01 ng/mL have been shown to have prognostic value. URINALYSIS Result Value Ref Range UA Color Yellow UA Appear Clear Clear UA Glucose Negative Negative mg/dL UA Ketones Negative Negative mg/dL UA Blood Negative Negative UA pH 6.0 5.0 - 8.0 pH UA Protein Trace (A) Negative mg/dL UA Urobilinogen 0.2 <=1 E.U./dL UA Nitrite Negative Negative UA Leuk Est Negative Negative UA Spec Grav >=1.030 1.001 - 1.035 no units UA WBC 3 0 - 4 /HPF UA RBC 0 0 - 3 /HPF UA Squam Epi 3+ /LPF UA Amorph 1+ /LPF UA Bacteria 2+ (A) Negative /HPF UA Hyal Cast 1 0 - 2 /LPF UA Gran Cast 3 (H) <=0 /LPF EK EKG 12 LEAD Narrative NOTICE: Preliminary tracing available for review; Final Interpretation by physician to follow. Impression Stationary ECG Study [facility] Interpretive Statements ATRIAL FIBRILLATION WITH SLOW VENTRICULAR RESPONSE LOW QRS VOLTAGE IN PRECORDIAL LEADS [QRS DEFLECTION < 1.0 mV IN CHEST LEADS] INFERIOR MYOCARDIAL INFARCTION [40+ ms Q WAVE AND/OR ST/T ABNORMALITY IN II/aVF], PROBABLY OLD ANTEROSEPTAL MYOCARDIAL INFARCTION [40+ ms Q WAVE IN V1-V4], PROBABLY OLD ED Course: Appropriate laboratory and radiology studies reviewed The patient presents ED for history of hypotension. Patient is afebrile. There is no clinical symptom of infection or sepsis. Patient had no history of fluid loss. I suspect his symptom medication related. Patient is on hypertensive medication. She had chronic atrial fibrillation. She is given IV fluid hydration bolus with normal saline followed by continuous infusion. There is improvement of blood pressure with fluid noted. She remained awake alert and comfortable in ED. There is no complaint of pain or discomfort. Laboratory study is significant for acute kidney injury for BUN of 53 and creatinine of 3.58. Thereis minimal electrolyte derangement. CBC is stable and troponin is within normal limits. Urinalysis appeared to be contaminated. I discussed with hospitalist superintendent drilling and production. Patient is admitted for further evaluation of her acute kidney injury and hypotension. Admission orders written by ED physician. At the times of admission the blood pressure is 110/49. chiller technician reveals sinus rhythm throughout. There is no arrhythmia. Plan of care discussed with patient at bedside. ED Clinical Impression: JACK (acute kidney injury) (HCC) (primary encounter diagnosis) Hypotension, unspecified hypotension type Critical Care time Total critical care time in the ED excluding procedure time is 70 minutes Condition at Discharge/Transfer from Department: Improved This chart was completed using voice recognition technology and may contain unintended errors Jeanette Santos MD 12/18/16 2148 * Zoie Monge - 12/18/2016 4:03 PM EDT Bed: 15 Expected date: Expected time: Means of arrival: Comments: documented in this encounter Miscellaneous Notes * Plan of Care - Destini Marquez RN - 12/22/2016 12:15 AM EDT Problem: Prevention: Skin Integrity - 76 For Stage 1 Pressure Ulcer or a Trace Scale Score of 18 or less Goal: Skin remains intact Outcome: Progressing Pt turned q2hr, powder applied to bottom Problem: Safety: Fall Risk Goal: Patient will remain free of falls and injury Outcome: Progressing Bed in lowest position, call light in reach, instructed to call for assistance, bed alarm in use Problem: Pain Management Goal: The patient's stated pain goal will be reached and maintained. The patient's stated pain goal will be reached and maintained Outcome: Progressing Denies pain, medication available if needed Problem: Knowledge Deficit Related to Disease Process/Treatment Goal: Patient/family will be knowledgeable of disease process and treatment Outcome: Progressing Updated patient on POC * Utilization Review Notes - Viktoriya Pepe RN - 12/21/2016 1:59 PM EDT Images from the original note were not included. Inpatient order in chart. Continued stay review on telemetry unit for JACK (acute kidney injury), Hypotension. 12/20/16 1124 98.3 ??F (36.8 ??C) 68 18 186/102 -- -- -- 98 % -- Room Air Cont ivf D5 at 100 ml/hr, heparin sub q tid, Insulin, 12/21/16 CC Met with pt in the room. [facility]. Pt states she is independent with her walker with wheels. Pt does attend [employer] from 830 to 230 Mon-Fri for activities.Pt has a PCP. Pt gets her scripts with no issues, and the staff at [facility] takes care of it. Pt states she uses [employer] transportation. CC to follow for discharge. Attending MD Higgins/P 12-21-16: Hypotension -- Good improvement with fluids. ?? Acute renal failure -- Good correction with fluids. Repeat labs pending. ?? DM -- Low dose protocol and coverage here ?? CHF -- Breathing is good. Developed some edema yesterday after fluid administrations but swelling is much improved today. ?? HTN -- Nifedipine and Metoprolol ? With swelling down and Creatinine improved if her numbers look good today we might anticipate discharge very soon. Looking forward to labs and to Nephrology's thoughts * Plan of Care - Ela Cochran RN - 12/21/2016 10:57 AM EDT Problem: Disposition/Transition of Care Goal: Patient will have a plan for disposition or transition to next level of care Outcome: Completed Date Met: 12/21/16 CC Met with pt in the room. CC following for discharge * Plan of Care - Melisa Navarro RN - 12/21/2016 1:56 AM EDT Problem: Prevention: Skin Integrity - 76 For Stage 1 Pressure Ulcer or a Trace Scale Score of 18 or less Goal: Skin remains intact Outcome: Progressing Frequent turns, patient education, skin assessments with VS Problem: Safety: Fall Risk Goal: Patient will remain free of falls and injury Outcome: Progressing Bed alarm on, frequent rounding checks, patient education, up with assist Problem: Knowledge Deficit Related to Disease Process/Treatment Goal: Patient/family will be knowledgeable of disease process and treatment Outcome: Progressing Answered questions at bedside * Plan of Care - Judith Nelson RN - 12/21/2016 12:34 AM EDT Problem: Safety: Fall Risk Goal: Patient will remain free of falls and injury Outcome: Progressing Pt remained free from falls. Bed in lowest position, side rails up x2. Call light within reach and pt educated on use. Problem: Pain Management Goal: The patient's stated pain goal will be reached and maintained. The patient's stated pain goal will be reached and maintained Outcome: Progressing No complaints of pain during shift * Plan of Care - Greg Aldana RN - 12/20/2016 4:52 AM EDT Problem: Prevention: Skin Integrity - 76 For Stage 1 Pressure Ulcer or a Trace Scale Score of 18 or less Goal: Skin remains intact Outcome: Progressing q2 hr turns being completed. Trace score assessed. Problem: Safety: Fall Risk Goal: Patient will remain free of falls and injury Outcome: Progressing Bed alarm on, call light within reach, room free of clutter, non skid footwear on, belongings within reach. Remaining with pt when in bathroom. Will continue to monitor. Problem: Knowledge Deficit Related to Disease Process/Treatment Goal: Patient/family will be knowledgeable of disease process and treatment Outcome: Progressing Updated pt on POC. Discussed medications with pt during medication pass. Showed pt GWN. * Plan of Micheline - Jacqueline Anderson RN - 12/19/2016 6:37 PM EDT Problem: Safety: Fall Risk Goal: Patient will remain free of falls and injury Outcome: Progressing Bed in lowest position, alarm in use, call light in reach, hourly rounding. Problem: Pain Management Goal: The patient's stated pain goal will be reached and maintained. The patient's stated pain goal will be reached and maintained Outcome: Progressing Patient denies pain. * Utilization Review Notes - Sridevi Harris RN - 12/19/2016 9:08 AM EDT INPATIENT ORDER ON CHART, ADMITTED TO TELEMETRY FLOOR FROM ER FOR: JACK HYPOTENSION BUN 53 CREAT- 3.58 BP- 88/43, 94/43, 93/44 HR- 55, 54, 52, 53, 52, 56 NS @ 150ML/HR, 500ML NS IV BOLUS X [address] CROUCH: Continue to hold BP meds now and follow pressures. Getting orthostatic vitals. DISCHARGE PLAN: PT IS FROM [facility] AND SW WILL FOLLOW FOR DISCHARGE PLANNING. * Plan of Care - Manju Choudhary RN - 12/19/2016 1:31 AM EDT Problem: Safety: Fall Risk Goal: Patient will remain free of falls and injury Outcome: Progressing Bed alarm on, call light within reach, room free of clutter, non skid footwear on, belongings within reach. Remaining with pt when in bathroom. Utilizing foot brace, gait belt and walker when ambulating. Will continue to monitor. Problem: Pain Management Goal: The patient's stated pain goal will be reached and maintained. The patient's stated pain goal will be reached and maintained Outcome: Progressing No c/o pain this shift. Will continue to assess for pain. Problem: Knowledge Deficit Related to Disease Process/Treatment Goal: Patient/family will be knowledgeable of disease process and treatment Outcome: Progressing Updated pt on POC. Discussed medications with pt during medication pass. Showed pt GWN. Problem: Psycho/Social/Spiritual Goal: Patient will identify sources of support and strength Outcome: Progressing Pt calm and cooperative documented in this encounter Plan of Treatment [...] Name Priority Date/Time Associated Diagnosis Comments SCANNED RHYTHM STRIPS 12/24/2016 6:05 PM EDT GLUCOSE METER POC Routine 12/22/2016 12:03 PM EDT GLUCOSE METER POC Routine 12/22/2016 7:50 AM EDT BASIC METABOLIC PANEL Early AM 12/22/2016 5:48 AM EDT SCANNED RHYTHM STRIPS 12/22/2016 12:29 AM EDT GLUCOSE METER POC Routine 12/21/2016 9:29 PM EDT GLUCOSE METER POC Routine 12/21/2016 5:11 PM EDT GLUCOSE METER POC Routine 12/21/2016 1:10 PM EDT PLATELET COUNT Timed 12/21/2016 9:59 AM EDT GLUCOSE METER POC Routine 12/21/2016 8:48 AM EDT BASIC METABOLIC PANEL Early AM 12/21/2016 5:48 AM EDT SCANNED RHYTHM STRIPS 12/21/2016 2:29 AM EDT GLUCOSE METER POC Routine 12/20/2016 9:09 PM EDT GLUCOSE METER POC Routine 12/20/2016 5:45 PM EDT GLUCOSE METER POC Routine 12/20/2016 12:29 PM EDT GLUCOSE METER POC Routine 12/20/2016 9:10 AM EDT BASIC METABOLIC PANEL Early AM 12/20/2016 6:21 AM EDT SCANNED RHYTHM STRIPS 12/20/2016 2:35 AM EDT GLUCOSE METER POC Routine 12/19/2016 9:00 PM EDT GLUCOSE METER POC Routine 12/19/2016 6:22 PM EDT GLUCOSE METER POC Routine 12/19/2016 3:33 PM EDT GLUCOSE METER POC Routine 12/19/2016 12:38 PM EDT IP CONSULT TO NEPHROLOGY Routine 12/19/2016 10:05 AM EDT Procedure Note - Carlos Alberto Hassan MD - 12/19/2016 10:41 AM EDTThis note is in progress. Images from the original note were not included. [facility] Nephrology Consult Name: Faby Palm ADDRESS: [address] [place] [address] : 1950 AGE: 66 y.o. Hospital: Primary Care Physician: Sharee Segovia ARNP Date of Admission: 12/18/2016 Date of Consultation: 12/19/2016 Reason for Consult: JACK History of Presenting Illness Faby Palm is a(n) 66 y.o. female with a history of CHF, COPD, DM2,and HTN who [facility] her [facility] with [facility] x 1 day. Shenoted weakness to the point that she couldn't walk. No hematuria, foamyurine, or change in some chronic leg swelling. She tells me she waseating well. She was significantly hypotensive on presentation, whichsystolics in the 70's. Her appetite has been great in the last few daysby her report. No chest pain, fevers, or shortness of breath. No historyof renal disease. Review of Systems: Pertinent ROS noted in HPI. Otherwise negative for all systems. Medications Prescriptions Prior to Admission Medication Sig Dispense Refill Last Dose ? ? acetaminophen 325 mg Oral Tab Take 650 mg by mouth every 4 hours asneeded for Pain. Taking at Unknown time ? ? amitriptyline (ELAVIL) 75 mg Oral Tablet TAKE ONE TABLET BY MOUTHNIGHTLY 30 Tab 0 Taking at Unknown time ? ? ARIPiprazole (ABILIFY) 10 mg Oral Tablet Take 30 mg by mouth 2 timesdaily. Taking at Unknown time ? ? ferrous sulfate 325 mg (65 mg iron) Oral Tablet Take 1 Tab by mouth 2times daily (with meals). 60 Tab 5 Taking at Unknown time ? ? gabapentin (NEURONTIN) 100 mg Oral Capsule Take 100 mg by mouth 3 timesdaily. Take 2 capsules by mouth 3 times daily Taking at Unknown time ? ? glipiZIDE (GLUCOTROL) 10 mg Oral Tablet Take 10 mg by mouth 2 timesdaily (with meals). Taking at Unknown time ? ? hydrOXYzine (ATARAX) 25 mg Oral Tablet Take 25 mg by mouth 2 timesdaily. Indications: ANXIETY Taking at Unknown time ? ? lisinopril (PRINIVIL;ZESTRIL) 5 mg Oral Tablet TAKE 1 TABLET BY MOUTHDAILY 30 Tab 5 Taking at Unknown time ? ? NIFEdipine (PROCARDIA XL) 90 mg Oral Tablet Extended Rel 24 hr Take 1Tab by mouth daily. 30 Tab 1 Taking at Unknown time ? ? pantoprazole (PROTONIX) 40 mg Oral Tablet, Delayed Release (E.C.) TAKEONE TABLET BY MOUTH ONCE DAILY 30 Tab 6 Taking at Unknown time ? ? risperiDONE (RISPERDAL) 1 mg Oral Tablet Take 2 mg by mouth nightly.Taking at Unknown time ? ? roPINIRole (REQUIP) 0.5 mg Oral Tablet TALE 3 TABLET BY MOUTH DAILY FOR1.5MG AT BEDTIME 90 Tab 5 Taking at Unknown time ? ? sitaGLIPtin (JANUVIA) 100 mg Oral Tablet Take 100 mg by mouth daily.Taking at Unknown time ? ? venlafaxine (EFFEXOR-XR) 150 mg Oral Capsule, Sust. Release 24 hr Takeby mouth daily. Taking at Unknown time ? ? aspirin 81 mg Oral Tablet, Delayed Release (E.C.) Take 81 mg by mouthdaily. Taking ? ? atorvastatin (LIPITOR) 20 mg Oral Tablet Take 1 Tab by mouth nightly. 30Tab 1 Taking ? ? atorvastatin (LIPITOR) 20 mg Oral Tablet Take 1 Tab by mouth nightly. 14Tab 0 Taking ? ? buPROPion (WELLBUTRIN SR) 150 mg Oral Tablet Sustained Release 12 hrTake 150 mg by mouth daily. Taking ? ? fUROsemide (LASIX) 40 mg Oral Tablet Take 1 Tab by mouth daily. 30 Tab 2Taking ? ? ibuprofen (ADVIL;MOTRIN) 600 mg Oral Tablet Take 1 Tab by mouth every 6hours as needed for Pain. 160 Tab 2 Taking ? ? insulin glargine (LANTUS) 100 unit/mL SubQ Solution Inject 21 units atnighttime in subcutaneous area.May substitute pens if covered by [id number] mL 3 Taking ? ? insulin syringe,safetyneedle 1 mL 30 gauge x 5 Misc Syringe 1Syringe by [facility]Non-Drug; Combo Route) route nightly. 30 Syringe 1 Taking ? ? isosorbide mononitrate (IMDUR) 60 mg Oral Tablet Sustained Release 24 hrTake 1 Tab by mouth daily. 30 Tab 1 Taking ? ? isosorbide mononitrate (IMDUR) 60 mg Oral Tablet Sustained Release 24 hrTake 1 Tab by mouth daily. 14 Tab 0 Taking ? ? LANTUS SOLOSTAR 100 unit/mL (3 mL) SubQ Insulin Pen INJECT 15 UNITSUNDER THE SKIN EVERY EVENING 15 mL 0 Taking ? ? metFORMIN (GLUCOPHAGE) 500 mg Oral Tablet Take 500 mg by mouth 2 timesdaily. Taking ? ? metoprolol (LOPRESSOR) 50 mg Oral Tablet Take 1 Tab by mouth 2 timesdaily. 60 Tab 0 Taking ? ? NIFEdipine (PROCARDIA XL) 90 mg Oral Tablet Extended Rel 24 hr TAKE ONETABLET BY MOUTH DAILY 30 Tab 2 Taking ? ? nitroGLYCERIN (NITROSTAT) 0.4 mg SL Tablet, Sublingual Place 1 Tab underthe tongue every 5 minutes as needed for Chest pain. 20 Tab 2 Taking ? ? RANEXA 1,000 mg Oral Tablet Sustained Release 12 hr TAKE ONE TABLET BYMOUTH EVERY 12 HOURS 60 Tab 0 Taking ? ? sertraline (ZOLOFT) 100 mg Oral Tablet Take 200 mg by mouth daily.Reported on 08/12/2016 Taking ? ? UNIFINE PENTIPS 32 gauge x 5 Misc Needle USE WITH LANTUS ONCE DAILY30 Each 0 Taking Current Facility-Administered Medications Medication Dose Route Frequency Provider Last Rate Last Dose ? ? 0.9 % NaCl infusion Intravenous Continuous LeJeanette MD Stoppedat 12/19/16 1035 ? ? ARIPiprazole (ABILIFY) tablet 30 mg 30 mg Oral Daily Juwan Crouch MD ? ? dextrose 50 % solution 25 mL 25 mL Intravenous PRN Jesse Crouch MD ? ? glucagon (human recombinant) (GLUCAGEN) injection 1 mg 1 mgIntramuscular PRN Jesse Crouch MD ? ? heparin, porcine (PF) injection 5,000 Units 5,000 Units Subcutaneous 3times per day Jesse Crouch MD ? ? insulin aspart (NovoLOG) injection 1-5 Units 1-5 Units Subcutaneous QIDWM Jesse Crouch MD ? ? insulin aspart (NovoLOG) injection 3 Units 3 Units Subcutaneous TID WMJesse Crouch MD ? ? insulin glargine (LANTUS) injection 10 Units 10 Units Subcutaneous QPM(Insulin) Jesse Crouch MD ? ? miconazole (MICATIN) 2 % powder Topical 2 times per day Jesse Crouch MD ? ? miconazole (MICATIN) 2 % powder Topical PRN Jesse Crouch MD ? ? risperiDONE (RisperDAL) tablet 2 mg 2 mg Oral Nightly Juwan Crouch MD ? ? venlafaxine (EFFEXOR-XR) XR capsule 150 mg 150 mg Oral Daily Jesse Crouch MD Allergies Allergen Reactions ? ? Compazine [Prochlorperazine Edisylate] ? ? [address] ? ? Pentazocine Hcl ? ? Prochlorperazine Maleate ? ? Talwin [Pentazocine Lactate] Past Medical History: Diagnosis Date ? ? Atrial flutter (HCC) EPS, AFL Ablation on 12/31/[address] Tee ? ? CHF (congestive heart failure) (HCC) ? ? COPD (chronic obstructive pulmonary disease) (HCC) ? ? DDD (degenerative disc disease) ? ? Diabetes mellitus (HCC) ? ? Hypertension ? ? RLS (restless legs syndrome) ? ? Stroke (HCC) 2010 left side affected ? ? Suicide attempt ? ? Yeast infection recurrent Past Surgical History: Procedure Laterality Date ? ? ABLATION OF DYSRHYTHMIC FOCUS 12/31/[address] fl[address] ablation [address] Dr. Tee ? ? ANKLE SURGERY ? ? BREAST SURGERY ? ? JOINT REPLACEMENT left total knee replacement 1999 ? ? LUNG SURGERY ? ? ORTHOPEDIC SURGERY ? ? TONSILLECTOMY ? ? UPPER GASTROINTESTINAL ENDOSCOPY N/A 04/03/2015 ESOPHAGOGASTRODUODENOSCOPY WITH BIOPSY AND BRUSHING; Surgeon: Chrissy Brown MD; Location: [facility]; Service: Endoscopy Family History Problem Relation Age of Onset ? ? Cancer Mother larnyx cancer ? ? Heart Disease Sister ? ? No Known Problems Son ? ? Seizures Daughter Social History: Faby's social history reviewed. Physical Examination Patient Vitals for the past 24 hrs: BP Temp Temp src Pulse Resp SpO2 Height Weight 12/19/16 1033 154/87 97.9 ??F (36.6 ??C) Oral 70 16 97 % - - 12/19/16 0447 124/68 97.3 ??F (36.3 ??C) Oral 71 12 96 % - - 12/18/16 2344 101/46 97.2 ??F (36.2 ??C) Oral 64 12 98 % - - 12/18/16 2001 110/49 97.2 ??F (36.2 ??C) Oral 57 12 100 % - - 12/18/16 1838 - - - 56 12 98 % - - 12/18/16 1816 95/40 - - 56 17 98 % - - 12/18/16 1740 98/57 - - 52 13 93 % - - 12/18/16 1732 - - - 53 13 98 % - - 12/18/16 1731 (!) 88/43 - - 52 18 94 % - - 12/18/16 1651 93/44 - - 54 12 98 % - - 12/18/16 1605 94/43 98.1 ??F (36.7 ??C) Oral 55 - 92 % 5' 8 (1.727 m) 262lb 3.2 oz (118.9 kg) 12/18/16 1603 - - Oral - 14 - - - Gen: Resting in bed, comfortable and pleasant. Eyes: No icterus, nl conjunctiva. ENT: MMM, OP clear. Neck: Supple, no carotid bruits appreciated. CV: RRR no m/r/g. No S3. Lungs: CTA-B Abd: S/NT +BS Ext: +BLE edema. No cyanosis. Skin: Warm, no rashes appreciated. : Non-distened bladder. Not TTP. Neuro: Alert and oriented x 3, nonfocal. Laboratory: CBC: Lab Results Component Value Date WBC 6.7 12/18/2016 WBC 7.3 11/10/2016 RBC 4.00 12/18/2016 RBC 4.15 11/10/2016 HGB 11.9 (L) 12/18/2016 HGB 12.1 11/10/2016 HCT 35.5 (L) 12/18/2016 HCT 36.2 11/10/2016 MCV 88.7 12/18/2016 MCV 87.2 11/10/2016 MCHC 33.5 12/18/2016 MCHC 33.5 11/10/2016 RDW 14.3 12/18/2016 RDW 14.6 11/10/2016 PLT 120 (L) 12/19/2016 PLT 148 11/10/2016 MPV 10.0 12/19/2016 MPV 9.5 11/10/2016 BMP: Lab Results Component Value Date NA 145 12/19/2016 NA 138 11/10/2016 K 4.5 12/19/2016 K 4.3 11/10/2016 CL 107 12/19/2016 CL 101 11/10/2016 CO2 25 12/19/2016 CO2 28 11/10/2016 BUN 44 (H) 12/19/2016 BUN 15 11/10/2016 CREATININE 2.35 (H) 12/19/2016 CREATININE 1.18 11/10/2016 CALCIUM 8.8 12/19/2016 CALCIUM 9.2 11/10/2016 GFRAFRAM 24 12/19/2016 GFRAFRAM 56 11/10/2016 GFRNONAFRAM 21 12/19/2016 GFRNONAFRAM 46 11/10/2016 GLU 140 (H) 12/19/2016 GLU 134 (H) 11/10/2016 A/P: 1. JACK on CKD stage 3: It appears her baseline Cr is 1.2-1.5. She has notfollowed with a milker machine. UA yesterday had little protein and noblood. Spec gravity was very concentrated, and her Cr is improvingquickly with fluids and improvement in her blood pressure. I suspect herAKI was pre-renal with perhaps some ATN from hypotension. She was onlasix, ibuprofen, and lisinopril prior to admission. Her underlying CKDis likely a combination of DM2 and HTN. Continue supportive care, avoidnephrotoxins. BP improved, avoid further hypotension. 2. HTN/hypotension: Holding BP meds and now her BP is running higher. OffIV fluids and eating well. Holding lasix. If her BP runs too high, Iwould restart nifedipine first. 3. DM2: Avoid metformin as long as her GFR is under 40. On insulin. 4. Anemia of iron def: On po iron. May also have some degree of anemiafrom CKD. No indication for epo as her hgb is over 10. 5. Thrombocytopenia: This appears chronic. Her platlets seem to runmostly 150-200. Recheck as they are trending down a bit. Thank you for allowing me to participate in the care of Faby Palm.I will continue to follow along. Please call with questions. Carlos Alberto Hassan MD FACP, FASN, RPVI PLATELET COUNT Timed 12/19/2016 9:37 AM EDT BASIC METABOLIC PANEL Early AM 12/19/2016 9:37 AM EDT SCANNED RHYTHM STRIPS 12/18/2016 11:45 PM EDT TROPONIN-T Timed 12/18/2016 10:10 PM EDT TROPONIN-T Timed 12/18/2016 7:40 PM EDT XR CHEST AP PORTABLE EMMY 12/18/2016 5:20 PM EDT URINALYSIS STAT 12/18/2016 5:05 PM EDT TROPONIN-T STAT 12/18/2016 4:43 PM EDT CBC WITH DIFF STAT 12/18/2016 4:43 PM EDT BASIC METABOLIC PANEL STAT 12/18/2016 4:43 PM EDT EK EKG 12 LEAD STAT 12/18/2016 4:05 PM EDT documented in this encounter Results * SCANNED RHYTHM STRIPS (12/24/2016 6:05 PM EDT) Anatomical Region Laterality Modality Other 12/24/2016 6:05 PM EDT us Unknown Unknown IMG ECG ORDERABLES Final Result * (ABNORMAL) GLUCOSE METER POC (12/22/2016 12:03 PM EDT) Glucose Meter POC 218(H) 70 - 100 mg/dL 12/22/2016 12:04 PM EDT [facility] Sample Type Capillary 12/22/2016 12:04 PM EDT [facility] Patient Status Non-Critical Patient 12/22/2016 12:04 PM EDT [facility] Blood BLOOD SPECIMEN / Unknown 12/22/2016 12:03 PM EDT 12/22/2016 12:04 PM EDT Jesse Crouch MD POINT OF CARE TEST ORDERABL ES Final Result Performing Organization Address City/[facility]/[place] [address] * (ABNORMAL) GLUCOSE METER POC (12/22/2016 7:50 AM EDT) Glucose Meter POC 166(H) 70 - 100 mg/dL 12/22/2016 7:51 AM EDT [facility] Sample Type Capillary 12/22/2016 7:51 AM EDT [facility] Patient Status Non-Critical Patient 12/22/2016 7:51 AM EDT [facility] Blood BLOOD SPECIMEN / Unknown 12/22/2016 7:50 AM EDT 12/22/2016 7:51 AM EDT Jesse Crouch MD POINT OF CARE TEST ORDERABL ES Final Result Performing Organization Address City/[facility]/[place] [address] * (ABNORMAL) BASIC METABOLIC PANEL (12/22/2016 5:48 AM EDT) [facility] Signature Sodium 142 136 - 145 mmol/L 12/22/2016 7:[address] [facility] Potassium 4.6 3.5 - 5.0 mmol/L 12/22/2016 7:34 AM [facility] Chloride 102 98 - 107 mmol/L 12/22/2016 7:34 AM [facility] Total CO2 26 22 - 29 mmol/L 12/22/2016 7:34 AM [facility] Anion Gap 14 7 - 16 mmol/L 12/22/2016 7:34 AM [facility] Calcium 9.4 8.8 - 10.2 mg/dL 12/22/2016 7:34 AM [facility] Glucose Lvl 152(H) 82 - 100 mg/dL 12/22/2016 7:34 AM [facility] BUN 16 8 - 23 mg/dL 12/22/2016 7:34 AM [facility] Creatinine 1.09 0.51 - 1.30 mg/dL 12/22/2016 7:34 AM [facility] GFR Afr Am 62 mL/min/1.7 3 m2 12/22/2016 7:34 AM [facility] GFR Non Afr Am 53 mL/min/1.7 3 m2 12/22/2016 7:34 AM [facility] [...] decreased G5 ?<15 ? Kidney Failure Blood Capillary / Unknown 12/22/2016 5:48 AM EDT 12/22/2016 6:41 AM EDT us Jesse Crouch MD CHEMISTRY ORDERABLES Final Result Performing Organization Address [facility]/State/ZIP Co de Phone Number [address] [id number] * SCANNED RHYTHM STRIPS (12/22/2016 12:29 AM EDT) Anatomical Region Laterality Modality Other 12/22/2016 12:2 9 AM EDT us Unknown Unknown IMG ECG ORDERABLES Final Result * (ABNORMAL) GLUCOSE METER POC (12/21/2016 9:29 PM EDT) [facility] Signature Glucose Meter POC 132(H) 70 - 100 mg/dL 12/21/2016 9:30 PM EDT [facility] Sample Type Capillary 12/21/2016 9:30 PM EDT [facility] Patient Status Non-Critical Patient 12/21/2016 9:30 PM EDT [facility] Blood BLOOD SPECIMEN / Unknown 12/21/2016 9:29 PM EDT 12/21/2016 9:30 PM EDT us Jesse Crouch MD POINT OF CARE TEST ORDERABL ES Final Result Performing Organization Address City/[facility]/ZIP Co de Phone Number [facility] [address] [place] [address] * (ABNORMAL) GLUCOSE METER POC (12/21/2016 5:11 PM EDT) Glucose Meter POC 146(H) 70 - 100 mg/dL 12/21/2016 5:12 PM EDT [facility] Sample Type Capillary 12/21/2016 5:12 PM EDT [facility] Patient Status Non-Critical Patient 12/21/2016 5:12 PM EDT [facility] Blood BLOOD SPECIMEN / Unknown 12/21/2016 5:11 PM EDT 12/21/2016 5:12 PM EDT us Jesse Crouch MD POINT OF CARE TEST ORDERABL ES Final Result Performing Organization Address [facility] Co de Phone Number [facility] [address] [place] [address] * (ABNORMAL) GLUCOSE METER POC (12/21/2016 1:10 PM EDT) Glucose Meter POC 165(H) 70 - 100 mg/dL 12/21/2016 1:10 PM EDT [facility] Sample Type Capillary 12/21/2016 1:10 PM EDT [facility] Patient Status Non-Critical Patient 12/21/2016 1:10 PM EDT [facility] Blood BLOOD SPECIMEN / Unknown 12/21/2016 1:10 PM EDT 12/21/2016 1:10 PM EDT us Jesse Crouch MD POINT OF CARE TEST ORDERABL ES Final Result Performing Organization Address [facility] Co de Phone Number [facility] [address] [place] [address] * (ABNORMAL) PLATELET COUNT (12/21/2016 9:59 AM EDT) Platelet 138(L) 144 - 423 x10(3)/mcL 12/21/2016 10:57 AM EDT [facility] MPV 9.7 6.8 - 10.8 fL 12/21/2016 10:57 AM EDT [facility] Blood VENOUS BLOOD / Unknown Capillary / Unknown 12/21/2016 9:59 AM EDT 12/21/2016 10:52 AM EDT Jesse Crouch MD HEMATOLOGY ORDERABLES Final Result Performing Organization Address [facility]/ZIP Co de Phone Number [facility] [address] [phone] * (ABNORMAL) GLUCOSE METER POC (12/21/2016 8:48 AM EDT) [facility] Glucose Meter POC 161(H) 70 - 100 mg/dL 12/21/2016 8:50 AM EDT [facility] Sample Type Capillary 12/21/2016 8:50 AM EDT [facility] Patient Status Non-Critical Patient 12/21/2016 8:50 AM EDT [facility] Blood BLOOD SPECIMEN / Unknown 12/21/2016 8:48 AM EDT 12/21/2016 8:50 AM EDT Jesse Crouch MD POINT OF CARE TEST ORDERABL ES Final Result Performing Organization Address [facility] de Phone Number [facility] [address] [place] [id number] * (ABNORMAL) BASIC METABOLIC PANEL (12/21/2016 5:48 AM EDT) Sodium 143 136 - 145 mmol/L 12/21/2016 9:33 AM EDT [facility] Potassium 3.8 3.5 - 5.0 mmol/L 12/21/2016 9:33 AM EDT [facility] Chloride 101 98 - 107 mmol/L 12/21/2016 9:33 AM EDT [facility] Total CO2 24 22 - 29 mmol/L 12/21/2016 9:33 AM EDT [facility] Anion Gap 18(H) 7 - 16 mmol/L 12/21/2016 9:33 AM [facility] Calcium 8.9 8.8 - 10.2 mg/dL 12/21/2016 9:33 AM [facility] Glucose Lvl 138(H) 82 - 100 mg/dL 12/21/2016 9:33 AM [facility] BUN 13 8 - 23 mg/dL 12/21/2016 9:33 AM [facility] Creatinine 0.96 0.51 - 1.30 mg/dL 12/21/2016 9:33 AM [facility] GFR Afr Am 72 mL/min/1.7 3 m2 12/21/2016 9:33 AM [facility] GFR Non Afr Am 62 mL/min/1.7 3 m2 12/21/2016 9:[address] [facility] Comment: GFR Afr Am and GFR Non Afr Am calculated using CKD-EPI equation. ?? GFR Category ?GFR(mL/min/1.73 m??) ? Kidney Function G1 ?>=90 ?Normal or high G2 ?60-89 ? Mildly decreased G3a ? 45-59 ? Mildly to moderately decreased G3b ? 30-44 ? Moderately to severely decreased G4 ?15-29 ? Severely decreased G5 ?<15 ? Kidney Failure Blood Capillary / Unknown 12/21/2016 5:48 AM EDT 12/21/2016 7:25 AM EDT Jesse Crouch MD CHEMISTRY ORDERABLES Final Result Performing Organization Address [facility] Co de Phone Number [facility] [address] [place] [address] * SCANNED RHYTHM STRIPS (12/21/2016 2:29 AM EDT) Anatomical Region Laterality Modality Other 12/21/2016 2:29 AM EDT us Unknown Unknown IMG ECG ORDERABLES Final Result * (ABNORMAL) GLUCOSE METER POC (12/20/2016 9:09 PM EDT) Glucose Meter POC 193(H) 70 - 100 mg/dL 12/20/2016 9:10 PM EDT [facility] Sample Type Capillary 12/20/2016 9:10 PM EDT [facility] Patient Status Non-Critical Patient 12/20/2016 9:10 PM EDT [facility] Blood BLOOD SPECIMEN / Unknown 12/20/2016 9:09 PM EDT 12/20/2016 9:10 PM EDT Jesse Crouch MD POINT OF CARE TEST ORDERABL ES Final Result Performing Organization Address [facility] Co de Phone Number [facility] [address] [place] [address] * (ABNORMAL) GLUCOSE METER POC (12/20/2016 5:45 PM EDT) Glucose Meter POC 143(H) 70 - 100 mg/dL 12/20/2016 5:46 PM EDT [facility] Sample Type Capillary 12/20/2016 5:46 PM EDT [facility] Patient Status Non-Critical Patient 12/20/2016 5:46 PM EDT [facility] Blood BLOOD SPECIMEN / Unknown 12/20/2016 5:45 PM EDT 12/20/2016 5:45 PM EDT us Jesse Crouch MD POINT OF CARE TEST ORDERABL ES Final Result Performing Organization Address [facility] [place] [address] * (ABNORMAL) GLUCOSE METER POC (12/20/2016 12:29 PM EDT) Glucose Meter POC 198(H) 70 - 100 mg/dL 12/20/2016 12:30 PM EDT [facility] Sample Type Capillary 12/20/2016 12:30 PM EDT [facility] Patient Status Non-Critical Patient 12/20/2016 12:30 PM EDT [facility] Blood BLOOD SPECIMEN / Unknown 12/20/2016 12:29 PM EDT 12/20/2016 12:30 PM EDT us Jesse Crouch MD POINT OF CARE TEST ORDERABL ES Final Result Performing Organization Address [facility] [place] [address] * (ABNORMAL) GLUCOSE METER POC (12/20/2016 9:10 AM EDT) Glucose Meter POC 152(H) 70 - 100 mg/dL 12/20/2016 9:10 AM EDT [facility] Sample Type Capillary 12/20/2016 9:10 AM EDT [facility] Patient Status Non-Critical Patient 12/20/2016 9:10 AM EDT [facility] Blood BLOOD SPECIMEN / Unknown 12/20/2016 9:10 AM EDT 12/20/2016 9:10 AM EDT us Jesse Crouch MD POINT OF CARE TEST ORDERABL ES Final Result [facility] [address] [place] [address] * (ABNORMAL) BASIC METABOLIC PANEL (12/20/2016 6:21 AM EDT) Sodium 148(H) 136 - 145 mmol/L 12/20/2016 7:48 AM EDT [facility] Potassium 3.9 3.5 - 5.0 mmol/L 12/20/2016 7:48 AM EDT [facility] Chloride 111(H) 98 - 107 mmol/L 12/20/2016 7:48 AM EDT [facility] Total CO2 24 22 - 29 mmol/L 12/20/2016 7:48 AM EDT [facility] Anion Gap 13 7 - 16 mmol/L 12/20/2016 7:48 AM EDT [facility] Calcium 8.6(L) 8.8 - 10.2 mg/dL 12/20/2016 7:48 AM EDT [facility] Glucose Lvl 135(H) 82 - 100 mg/dL 12/20/2016 7:48 AM EDT [facility] BUN 26(H) 8 - 23 mg/dL 12/20/2016 7:48 AM EDT [facility] Creatinine 1.34(H) 0.51 - 1.30 mg/dL 12/20/2016 7:48 AM EDT [facility] GFR Afr Am 48 mL/min/1.7 3 m2 12/20/2016 7:48 AM EDT [facility] GFR Non Afr Am 42 mL/min/1.7 3 m2 12/20/2016 7:48 AM EDT [facility] Comment: GFR Afr Am and GFR Non Afr Am calculated using CKD-EPI equation. ?? GFR Category ?GFR(mL/min/1.73 m??) ? Kidney Function G1 ?>=90 ?Normal or high G2 ?60-89 ? Mildly decreased G3a ? 45-59 ? Mildly to moderately decreased G3b ? 30-44 ? Moderately to severely decreased G4 ?15-29 ? Severely decreased G5 ?<15 ? Kidney Failure Blood Capillary / Unknown 12/20/2016 6:21 AM EDT 12/20/2016 7:19 AM EDT us Jesse Crouch MD CHEMISTRY ORDERABLES Final Result Performing Organization Address [facility] de Phone Number [address] [id number] * SCANNED RHYTHM STRIPS (12/20/2016 2:35 AM EDT) Anatomical Region Laterality Modality Other 12/20/2016 2:35 AM EDT us Unknown Unknown IMG ECG ORDERABLES Final Result * (ABNORMAL) GLUCOSE METER POC (12/19/2016 9:00 PM EDT) [facility] Glucose Meter POC 140(H) 70 - 100 mg/dL 12/19/2016 9:01 PM EDT [facility] Sample Type Capillary 12/19/2016 9:01 PM EDT [facility] Patient Status Non-Critical Patient 12/19/2016 9:01 PM EDT [facility] Blood BLOOD SPECIMEN / Unknown 12/19/2016 9:00 PM EDT 12/19/2016 9:01 PM EDT us Jesse Crouch MD POINT OF CARE TEST ORDERABL ES Final Result Performing Organization Address City/[facility]/[place] [address] * (ABNORMAL) GLUCOSE METER POC (12/19/2016 6:22 PM EDT) Glucose Meter POC 163(H) 70 - 100 mg/dL 12/19/2016 6:23 PM EDT [facility] Sample Type Capillary 12/19/2016 6:23 PM EDT [facility] Patient Status Non-Critical Patient 12/19/2016 6:23 PM EDT [facility] Blood BLOOD SPECIMEN / Unknown 12/19/2016 6:22 PM EDT 12/19/2016 6:23 PM EDT us Jesse Crouch MD POINT OF CARE TEST ORDERABL ES Final Result Performing Organization Address [facility] [place] [address] * (ABNORMAL) GLUCOSE METER POC (12/19/2016 3:33 PM EDT) Glucose Meter POC 169(H) 70 - 100 mg/dL 12/19/2016 3:34 PM EDT [facility] Sample Type Capillary 12/19/2016 3:34 PM EDT [facility] Patient Status Non-Critical Patient 12/19/2016 3:34 PM EDT [facility] Blood BLOOD SPECIMEN / Unknown 12/19/2016 3:33 PM EDT 12/19/2016 3:34 PM EDT us Jesse Crouch MD POINT OF CARE TEST ORDERABL ES Final Result Performing Organization Address City/[facility] Co de Phone Number [facility] [address] [place] [address] * (ABNORMAL) GLUCOSE METER POC (12/19/2016 12:38 PM EDT) Glucose Meter POC 220(H) 70 - 100 mg/dL 12/19/2016 12:39 PM EDT [facility] Sample Type Capillary 12/19/2016 12:39 PM EDT [facility] Patient Status Non-Critical Patient 12/19/2016 12:39 PM EDT [facility] Blood BLOOD SPECIMEN / Unknown 12/19/2016 12:38 PM EDT 12/19/2016 12:39 PM EDT Jesse Crouch MD POINT OF CARE TEST ORDERABL ES Final Result Performing Organization Address [facility] de Phone Number [facility] [address] [place] [address] * (ABNORMAL) PLATELET COUNT (12/19/2016 9:37 AM EDT) [facility] Platelet 120(L) 144 - 423 x10(3)/mcL 12/19/2016 10:15 AM EDT [facility] MPV 10.0 6.8 - 10.8 fL 12/19/2016 10:15 AM EDT [facility] Blood VENOUS BLOOD / Unknown Capillary / Unknown 12/19/2016 9:37 AM EDT 12/19/2016 10:07 AM EDT Jesse Crouch MD HEMATOLOGY ORDERABLES Final Result Performing Organization Address [facility] Co de Phone Number [facility] [address] [place] [address] * (ABNORMAL) BASIC METABOLIC PANEL (12/19/2016 9:37 AM EDT) Sodium 145 136 - 145 mmol/L 12/19/2016 10:35 AM EDT [facility] Potassium 4.5 3.5 - 5.0 mmol/L 12/19/2016 10:35 AM EDT [facility] Chloride 107 98 - 107 mmol/L 12/19/2016 10:35 AM [facility] Total CO2 25 22 - 29 mmol/L 12/19/2016 10:35 AM [facility] Anion Gap 13 7 - 16 mmol/L 12/19/2016 10:35 AM [facility] Calcium 8.8 8.8 - 10.2 mg/dL 12/19/2016 10:35 AM [facility] Glucose Lvl 140(H) 82 - 100 mg/dL 12/19/2016 10:35 AM [facility] BUN 44(H) 8 - 23 mg/dL 12/19/2016 10:35 AM [facility] Creatinine 2.35(H) 0.51 - 1.30 mg/dL 12/19/2016 10:[address] [facility] GFR Afr Am 24 mL/min/1.7 3 m2 12/19/2016 10:35 AM [facility] GFR Non Afr Am 21 mL/min/1.7 3 m2 12/19/2016 10:[address] [facility] Comment: GFR Afr Am and GFR Non Afr Am calculated using CKD-EPI equation. ?? GFR Category ?GFR(mL/min/1.73 m??) ? Kidney Function G1 ?>=90 ?Normal or high G2 ?60-89 ? Mildly decreased G3a ? 45-59 ? Mildly to moderately decreased G3b ? 30-44 ? Moderately to severely decreased G4 ?15-29 ? Severely decreased G5 ?<15 ? Kidney Failure Blood Capillary / Unknown 12/19/2016 9:37 AM EDT 12/19/2016 10:07 AM EDT Jesse Crouch MD CHEMISTRY ORDERABLES Final Result Performing Organization Address [facility] de Phone Number [address] [address] * SCANNED RHYTHM STRIPS (12/18/2016 11:45 PM EDT) Anatomical Region Laterality Modality Other 12/18/2016 11:4 5 PM EDT Unknown Unknown IMG ECG ORDERABLES Final Result * TROPONIN-T (12/18/2016 10:10 PM EDT) Troponin-T <0.01 <0.01 ng/mL 12/18/2016 10:50 PM EDT [facility] Blood VENOUS BLOOD / Unknown Venipuncture / Unknown 12/18/2016 10:10 PM EDT 12/18/2016 10:13 PM EDT Narrative [facility] - 12/18/2016 10:50 PM EDT Values > or = 0.01 ng/mL have been shown to have prognostic value. Jeanette Santos MD CHEMISTRY ORDERABLES Final Resul t Performing Organization Address [facility] de Phone Number [facility] [address] [place] [address] * TROPONIN-T (12/18/2016 7:40 PM EDT) Troponin-T <0.01 <0.01 ng/mL 12/18/2016 8:30 PM EDT [facility] Blood VENOUS BLOOD / Unknown Venipuncture / Unknown 12/18/2016 7:40 PM EDT 12/18/2016 8:03 PM EDT Narrative [facility] - 12/18/2016 8:30 PM EDT Values > or = 0.01 ng/mL have been shown to have prognostic value. us Jeanette Santos MD CHEMISTRY ORDERABLES Final Resul t [facility] [address] [facility] [place] [address] * XR CHEST AP PORTABLE (12/18/2016 5:20 PM EDT) Anatomical Region Laterality Modality Chest Radiographic Whit ging 12/18/2016 5:20 PM EDT Impressions 12/18/2016 5:23 PM EDT No acute disease. Narrative 12/18/2016 5:23 PM EDT XR CHEST AP PORTABLE ?? 12/18/2016 5:20 PM CLINICAL: -WEAKNESS COMPARISON: 11/10/2016 FINDINGS: Cardiopericardial silhouette and mediastinum are within normal limits. Ill-defined nodular opacity right midlung unchanged. This appears ribs a healing fracture. Lungs clear of acute infiltrate. Procedure Note Juvenal Woodward III, MD - 12/18/2016 XR CHEST AP PORTABLE 12/18/2016 5:20 PM CLINICAL: -WEAKNESS COMPARISON: 11/10/2016 FINDINGS: Cardiopericardial silhouette and mediastinum are within normallimits. Ill-defined nodular opacity right midlung unchanged. This appears ribs ahealing fracture. Lungs clear of acute infiltrate. IMPRESSION: No acute disease. Jeanette Santos MD IMG DIAGNOSTIC IMAGING ORDERABLE S Final Result * (ABNORMAL) URINALYSIS (12/18/2016 5:05 PM EDT) UA Color Yellow 12/18/2016 5:31 PM EDT [facility] UA Appear Clear Clear 12/18/2016 5:31 PM EDT [facility] UA Glucose Negative Negative mg/dL 12/18/2016 5:31 PM EDT [facility] UA Ketones Negative Negative mg/dL 12/18/2016 5:31 PM EDT [facility] UA Blood Negative Negative 12/18/2016 5:31 PM EDT [facility] UA pH 6.0 5.0 - 8.0 pH 12/18/2016 5:31 PM EDT [facility] UA Protein Trace(A) Negative mg/dL 12/18/2016 5:31 PM EDT [facility] UA Urobilinogen 0.2 <=1 E.U./dL 12/19/19 17 5:31 PM EDT [facility]A Nitrite Negative Negative 12/18/2016 5:31 PM EDT [facility] UA Leuk Est Negative Negative 12/18/2016 5:31 PM EDT [facility] UA Spec Grav >=1.030 1.001 - 1.035 no units 12/18/2016 5:31 PM EDT [facility] Comment: Reference range valid for random specimens only. UA WBC 3 0 - 4 /HPF 12/18/2016 5:31 PM EDT [facility] UA RBC 0 0 - 3 /HPF 12/18/2016 5:31 PM EDT [facility] UA Squam Epi 3+ /LPF 12/18/2016 5:31 PM EDT [facility] UA Amorph 1+ /LPF 12/18/2016 5:31 PM EDT [facility] UA Bacteria 2+(A) Negative /HPF 12/18/2016 5:31 PM EDT [facility] UA Hyal Cast 1 0 - 2 /LPF 12/18/2016 5:31 PM EDT [facility] UA Gran Cast 3(H) <=0 /LPF 12/18/2016 5:31 PM EDT [facility] Urine URINE SPECIMEN COLLECTION, CLEAN CATCH / Unknown 12/18/2016 5:05 PM EDT 12/18/2016 5:09 PM EDT Jeanette Santos MD URINE ORDERABLES Final Result Performing Organization Address [facility] Co de Phone Number [facility] [address] [place] [address] * (ABNORMAL) TROPONIN-T (12/18/2016 4:43 PM EDT) Troponin-T 0.01(H) <0.01 ng/mL 12/18/2016 5:15 PM EDT [facility] Blood VENOUS BLOOD / Unknown Venipuncture / Unknown 12/18/2016 4:43 PM EDT 12/18/2016 4:46 PM EDT Narrative [facility] - 12/18/2016 5:15 PM EDT Values > or = 0.01 ng/mL have been shown to have prognostic value. Jeanette Santos MD CHEMISTRY ORDERABLES Final Resul t Performing Organization Address [facility] Co de Phone Number [facility] [address] [place] [address] * (ABNORMAL) BASIC METABOLIC PANEL (12/18/2016 4:43 PM EDT) Sodium 142 136 - 145 mmol/L 12/18/2016 5:13 PM EDT [facility] Potassium 4.7 3.5 - 5.0 mmol/L 12/18/2016 5:13 PM EDT [facility] Chloride 103 98 - 107 mmol/L 12/18/2016 5:13 PM EDT [facility] Total CO2 25 22 - 29 mmol/L 12/18/2016 5:13 PM EDT [facility] Anion Gap 14 7 - 16 mmol/L 12/18/2016 5:13 PM EDT [facility] Calcium 8.7(L) 8.8 - 10.2 mg/dL 12/18/2016 5:13 PM [facility] Glucose Lvl 130(H) 82 - 100 mg/dL 12/18/2016 5:13 PM [facility] BUN 53(H) 8 - 23 mg/dL 12/18/2016 5:13 PM [facility] Creatinine 3.58(H) 0.51 - 1.30 mg/dL 12/18/2016 5:13 PM [facility] GFR Afr Am 15 mL/min/1.7 3 m2 12/18/2016 5:13 PM [facility] GFR Non Afr Am 13 mL/min/1.7 3 m2 12/18/2016 5:13 PM [facility] Comment: GFR Afr Am and GFR [...] VENOUS BLOOD / Unknown Venipuncture / Unknown 12/18/2016 4:43 PM EDT 12/18/2016 4:46 PM EDT us Jeanette Santos MD CHEMISTRY ORDERABLES Final Resul t [facility] [address] [facility] [place] [address] * (ABNORMAL) CBC WITH DIFF (12/18/2016 4:43 PM EDT) WBC 6.7 4.0 - 11.0 x10(3)/mcL 12/18/2016 4:57 PM EDT [facility] RBC 4.00 3.80 - 5.10 x10(6)/mcL 12/18/2016 4:57 PM EDT [facility] Hgb 11.9(L) 12.0 - 15.6 gm/dL 12/18/2016 4:57 PM EDT [facility] Hct 35.5(L) 35.7 - 45.9 % 12/18/2016 4:57 PM EDT [facility] MCV 88.7 82.5 - 99.8 fL 12/18/2016 4:57 PM EDT [facility] MCH 29.7 27.0 - 34.3 pg 12/18/2016 4:57 PM EDT [facility] MCHC 33.5 32.1 - 35.3 gm/dL 12/18/2016 4:57 PM EDT [facility] RDW 14.3 11.5 - 15.0 % 12/18/2016 4:57 PM EDT [facility] Platelet 140(L) 144 - 423 x10(3)/mcL 12/18/2016 4:57 PM EDT [facility] MPV 10.0 6.8 - 10.8 fL 12/18/2016 4:57 PM EDT [facility] Neut Percent 73.3 % 12/18/2016 4:57 PM EDT [facility] Lymph Percent 17.3 % 12/18/2016 4:57 PM EDT [facility] [place] Percent 7.1 % 12/18/2016 4:57 PM EDT [facility] Eos Percent 1.5 % 12/18/2016 4:57 PM EDT [facility] Baso Percent 0.8 % 12/18/2016 4:57 PM EDT [facility] Neut # 4.9 1.8 - 7.7 x10(3)/mcL 12/18/2016 4:57 PM EDT [facility] Lymph # 1.2 0.6 - 4.8 x10(3)/mcL 12/18/2016 4:57 PM EDT [facility] [place] # 0.5 0.0 - 1.3 x10(3)/mcL 12/18/2016 4:57 PM EDT [facility] Eos# 0.1 0.0 - 0.5 x10(3)/mcL 12/18/2016 4:57 PM EDT [facility] Baso # 0.1 0.0 - 0.2 x10(3)/mcL 12/18/2016 4:57 PM EDT [facility] Blood VENOUS BLOOD / Unknown Venipuncture / Unknown 12/18/2016 4:43 PM EDT 12/18/2016 4:46 PM EDT us Jeanette Santso MD HEMATOLOGY ORDERABLES Final Resu lt Performing Organization Address City/State/[facility] Co de Phone Number [id number] [address] [place] [address] * EK EKG 12 LEAD (12/18/2016 4:05 PM EDT) Anatomical Region Laterality Modality Electrocardiogra phy 12/18/2016 4:11 PM EDT Impressions 12/18/2016 11:05 PM EDT ? Stationary ECG Study ? [place] ? Interpretive Statements ? SINUS BRADYCARDIA LOW QRS VOLTAGE IN PRECORDIAL LEADS INFERIOR MYOCARDIAL INFARCTION, PROBABLY OLD ANTEROSEPTAL MYOCARDIAL INFARCTION, PROBABLY OLD Electronically Signed On 12-18-2016 23:05:31 EDT by Abundio Marin MD Narrative Procedure Note Abundio Marin MD - 12/18/2016 IMPRESSION [facility]ary [facility] Interpretive Statements SINUS BRADYCARDIA LOW QRS VOLTAGE IN PRECORDIAL LEADS INFERIOR MYOCARDIAL INFARCTION, PROBABLY OLD ANTEROSEPTAL MYOCARDIAL INFARCTION, PROBABLY OLD Electronically Signed On 12-18-2016 23:05:31 EDT by Abundio Marin MD Jeanette Santos MD IMG ECG ORDERABLES Final Result documented in this encounter Visit Diagnoses Diagnosis JACK (acute kidney injury) (HCC)- Primary Acute kidney failure, unspecified JACK (acute kidney injury) (HCC) Acute kidney failure, unspecified Hypotension, unspecified hypotension type Hypotension Hypotension, unspecified 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 documented in this encounter Admitting Diagnoses Diagnosis Hypotension Hypotension, unspecified documented in this encounter Administered Medications Inactive Administered Medications - up to 1 most recent administrations Medication Order MAR Action Action Date Dose Rate Site 0.9 % NaCl infusion Intravenous, at 150 mL/hr, CONTINUOUS, Starting on Wed12/18/16 at 1800, Until Wed12/20/16 at 0829 Rate/Dose Verify 12/20/2016 7:06 AM EDT 150 mL/hr ARIPiprazole (ABILIFY) tablet 30 mg 30 mg, Oral, DAILY, First dose on 12/19/16 at 1100, Until Discontinued Given 12/22/2016 10:01 AM EDT 30 mg dextrose 5% infusion Intravenous, at 100 mL/hr, CONTINUOUS, Starting on 12/20/16 at 1315, Until Wed12/20/16 at 2314 Rate/Dose Verify 12/20/2016 7:15 PM EDT 100 mL/hr diphenhydrAMINE (BENADRYL) tablet 50 mg 50 mg, Oral, NIGHTLY PRN, Starting on Wed12/20/16 at 2320, Until Wed12/22/16 at 1847, Sleep Given 12/21/2016 1:02 AM EDT 50 mg heparin, porcine (PF) injection 5,000 Units 5,000 Units, Subcutaneous, EVERY 8 HOURS SCHEDULED (3 times per day), First dose on 12/19/16 at 1400, Until Discontinued, Hold Heparin for platelet count less than 100,000 Given 12/21/2016 5:15 AM EDT 5,000 Units Abdominal Tissue insulin aspart (NovoLOG) injection 1-5 Units 1-5 Units, Subcutaneous, 4 TIMES DAILY WITH MEALS, First dose on 12/19/16 at 1200, Until Discontinued, Low dose algorithm: FSBS? Additional [...] hours. Waste Sort Code = BKC Given 12/22/2016 10:02 AM EDT 1 Units Abdominal Tissue insulin aspart (NovoLOG) injection 3 Units 3 Units, Subcutaneous, 3 TIMES DAILY WITH MEALS, First dose on 12/19/16 at 1200, Until Discontinued, If patient is unable to eat a meal, hold prandial insulin. Waste Sort Code = BKC Given 12/22/2016 10:01 AM EDT 3 Units Abdominal Tissue insulin glargine (LANTUS) injection 10 Units 10 Units, Subcutaneous, EVERY EVENING (INSULIN), First dose on 12/19/16 at 1900, Until Discontinued, If patient is unable to eat a meal, give basal insulin as ordered. Pre-op/NPO: Contact physician for clarification of basal insulin or to reduce basal insulin by 20% Waste Sort Code = BKC Given 12/21/2016 7:06 PM EDT 10 Units Abdominal Tissue metoprolol (LOPRESSOR) tablet 50 mg 50 mg, Oral, 2 TIMES DAILY, First dose on Wed12/20/16 at 1315, Until Discontinued Given 12/22/2016 10:01 AM EDT 50 mg miconazole (MICATIN) 2 % powder Topical, EVERY 12 HOURS SCHEDULED (2 times per day), 84 doses, First dose on Wed12/18/16 at 2145, Last dose on Wed01/29/17 at 0900, Application site: folds Given 12/22/2016 10:03 AM EDT miconazole (MICATIN) 2 % powder Topical, PRN, Starting on Wed12/18/16 at 2014, Until Wed12/22/16 at 1847, Wound Care, Application site: folds NIFEdipine (PROCARDIA XL) CR tablet 90 mg 90 mg, Oral, DAILY, First dose on 12/20/16 at 1315, Until Discontinued Given 12/22/2016 10:01 AM EDT 90 mg ondansetron (ZOFRAN) tablet 4 mg 4 mg, Oral, EVERY 8 HOURS PRN, Starting on Wed12/21/16 at 1650, Until Wed12/22/16 at 1847, Nausea, Dissolve in mouth Given 12/21/2016 8:37 PM EDT 4 mg risperiDONE (RisperDAL) tablet 2 mg 2 mg, Oral, NIGHTLY, First dose on 12/19/16 at 2100, Until Discontinued Given 12/21/2016 8:38 PM EDT 2 mg sodium chloride 0.9 % 500 mL IV bolus Intravenous, ONCE, 1 dose, On Wed12/18/16 at 1645, at 491.8 mL/hr IV Started 12/18/2016 4:56 PM EDT 491.8 mL/hr venlafaxine (EFFEXOR-XR) XR capsule 150 mg 150 mg, Oral, DAILY, First dose on 12/19/16 at 1100, Until Discontinued Given 12/22/2016 10:01 AM EDT 150 mg documented in this encounter Discontinued Medications Medication Sig Discontinue Reason Start Date End Da te ibuprofen (ADVIL;MOTRIN) 600 mg Oral TabletIndications:Righ t groin pain Take 1 Tab by mouth every 6 hours as needed for Pain. Stop Taking at Discharge 09/21/2016 12/22/2016 lisinopril (PRINIVIL;ZESTRIL) 5 mg Oral Tablet TAKE 1 TABLET BY MOUTH DAILY Stop Taking at Discharge 11/17/2016 12/22/2016 fUROsemide (LASIX) 40 mg Oral TabletIndications:Maria pheral edema Take 1 Tab by mouth daily. Stop Taking at Discharge 11/19/2016 12/22/2016 NIFEdipine (PROCARDIA XL) 90 mg Oral Tablet Extended Rel 24 hr TAKE ONE TABLET BY MOUTH DAILY Stop Taking at Discharge 11/26/2016 12/22/2016 documented as of this encounter Historical Medications * This list may reflect changes made after this encounter. venlafaxine (EFFEXOR-XR) 150 mg Oral Capsule, Sust. Release 24 hr Take by mouth daily. 02/23/2017 added in this encounter Active and Recently Administered Medications Times are shown in EDT. Scheduled Medication Order 12/20/2016 12/21/2016 12/22/2016 ARIPiprazole (ABILIFY) tablet 30 mg 30 mg, Oral, DAILY, First dose on 12/19/16 at 1100, Until Discontinued 1134 (Given - Provider: Destini Quintanilla, Cnc Milling Machine Operator) 0857 (Given - Provider: Destini Rogers, ROLF) 1001 (Given - Provider: Emelia Meek RN) heparin, porcine (PF) injection 5,000 Units 5,000 Units, Subcutaneous, EVERY 8 HOURS SCHEDULED (3 times per day), First dose on 12/19/16 at 1400, Until Discontinued, Hold Heparin for platelet count less than 100,000 0638 (Given - Provider: Judith Nelson, RN)1510 (Given - Provider: Destini Quintanilla, Cnc Milling Machine Operator)2200 (Not Given - Provider: Judith Nelson RN - Reason: Patient/family declined) 0515 (Given - Provider: Melisa Navarro, RN)1400 (Not Given - Provider: Destini Rogers RN - Reason: Patient/family declined)2200 (Not Given - Provider: Destini Marquez RN - Reason: Patient/family declined) 0600 (Not Given - Provider: Destini Marquez RN - Reason: Patient/family declined)1400 (Not Given - Provider: Emelia Meek RN - Reason: Patient/family declined) insulin aspart (NovoLOG) injection 1-5 Units 1-5 Units, Subcutaneous, 4 TIMES DAILY WITH MEALS, First dose on 12/19/16 at 1200, Until Discontinued, Low dose algorithm: FSBS? Additional [...] 3 hours. Waste Sort Code = BK 0952 (Given - Provider: Jacqueline Anderson, RN)1352 (Given - Provider: Jacqueline Anderson, RN)1800 (Not Given - Provider: Jacqueline Anderson RN - Reason: Order parameters not met)2110 (Not Given - Provider: Judith Nelson RN - Reason: Order parameters not met - Comment: BS 193) 0902 (Given - Provider: Destini Rogers RN - Comment: verified with FARIBA RN)1200 (Not Given - Provider: Destini Rogers RN - Reason: Patient/family declined)1800 (Not Given - Provider: Destini Rogers RN - Reason: Order parameters not met)2100 (Not Given - Provider: Destini Marquez RN - Reason: Order parameters not met) 1002 (Given - Provider: Emelia Meek RN)1200 (Not Given - Provider: Emelia Meek RN - Reason: Patient/family declined) insulin aspart (NovoLOG) injection 3 Units 3 Units, Subcutaneous, 3 TIMES DAILY WITH MEALS, First dose on 12/19/16 at 1200, Until Discontinued, If patient is unable to eat a meal, hold prandial insulin. Waste Sort Code = [facility] 0952 (Given - Provider: Jacqueline Anderson RN)1352 (Given - Provider: Jacqueline Anderson RN)1845 (Given - Provider: Destini Quintanilla, Cnc Milling Machine Operator) 0902 (Given - Provider: Destini Rogers RN - Comment: Verified with FARIBA RN)1200 (Not Given - Provider: Destini Rogers RN - Reason: Patient/family declined)1800 (Not Given - Provider: Destini Rogers RN - Reason: Patient/family declined) 1001 (Given - Provider: Emelia Meek RN)1200 (Not Given - Provider: Emelia Meek RN - Reason: Patient/family declined) insulin glargine (LANTUS) injection 10 Units 10 Units, Subcutaneous, EVERY EVENING (INSULIN), First dose on 12/19/16 at 1900, Until Discontinued, If patient is unable to eat a meal, give basal insulin as ordered. Pre-op/NPO: Contact physician for clarification of basal insulin or to reduce basal insulin by 20% Waste Sort Code = [facility] 1906 (Given - Provider: Destini Quintanilla, Cnc Milling Machine Operator) 1906 (Given - Provider: Destini Rogers RN) metoprolol (LOPRESSOR) tablet 50 mg 50 mg, Oral, 2 TIMES DAILY, First dose on 12/20/16 at 1315, Until Discontinued 1511 (Given - Provider: Destini Quintanilla, Cnc Milling Machine Operator)2021 (Given - Provider: Judith Nelson, RN) 0858 (Given - Provider: Destini Rogers, ROLF)2037 (Given - Provider: Destini Marquez, RN) 100 (Given - Provider: Emelia Meek, ROLF) miconazole (MICATIN) 2 % powder Topical, EVERY 12 HOURS SCHEDULED (2 times per day), 84 doses, First dose on Wed12/18/16 at 2145, Last dose on Wed01/29/17 at 0900, Application site: [facility] 0816 (Given - Provider: Jacqueline Anderson, RN)2020 (Given - Provider: Judith Nelson RN) 09 (Given - Provider: Destini Rogers, ROLF)2038 (Given - Provider: Destini Marquez RN) 100 (Given - Provider: Emelia Meek, ROLF) NIFEdipine (PROCARDIA XL) CR tablet 90 mg 90 mg, Oral, DAILY, First dose on 12/20/16 at 1315, Until Discontinued 1511 (Given - Provider: Destini Quintanilla, Cnc Milling Machine Operator) 08 (Given - Provider: Destini Rogers, ROLF) 100 (Given - Provider: Emelia Meek RN) risperiDONE (RisperDAL) tablet 2 mg 2 mg, Oral, NIGHTLY, First dose on 12/19/16 at 2100, Until Discontinued 2021 (Given - Provider: Judith Nelson RN) 2037 (Given - Provider: Destini Marquez RN) venlafaxine (EFFEXOR-XR) XR capsule 150 mg 150 mg, Oral, DAILY, First dose on 12/19/16 at 1100, Until Discontinued 814 (Given - Provider: Jacqueline Anderson RN) 08 (Given - Provider: Destini Rogers, ROLF) 100 (Given - Provider: Emelia Meek RN) Continuous Medication Order 12/20/2016 12/21/2016 12/22/2016 0.9 % NaCl infusion (CANCELED) Intravenous, at 150 mL/hr, CONTINUOUS, Starting on Wed12/18/16 at 1800, Until 12/20/16 at 0829 0355 (Rate/Dose Verify - Provider: Greg Aldana RN)0706 (Rate/Dose Verify - Provider: Jacqueline Anderson, RN)0827 (Stopped - Provider: Jacqueline Anderson RN) dextrose 5% infusion () Intravenous, at 100 mL/hr, CONTINUOUS, Starting on Wed12/20/16 at 1315, Until Wed12/20/16 at 2314 1459 (New Bag - Provider: Destini Quintanilla, Cnc Milling Machine Operator)1915 (Rate/Dose Verify - Provider: Judith Nelson RN) 0046 (Stopped - Provider: Melisa Navarro, ROLF)005 (Stopped - Provider: Judith Nelson RN - Comment: stopped per order) PRN Medication Order 12/20/2016 12/21/2016 12/22/2016 dextrose 50 % solution 25 mL 25 mL, Intravenous, PRN, Starting on 12/19/16 at 0916, Until Wed12/22/16 at 1847, Low blood sugar, If FSBS less than 70 mg/dl and patient cannot take orally, Check FSBS every 30 minutes and repeat 25 mL of D50 IV push and notify physician if FSBS less than 70 mg/dL VESICANT diphenhydrAMINE (BENADRYL) tablet 50 mg 50 mg, Oral, NIGHTLY PRN, Starting on Wed12/20/16 at 2320, Until Wed12/22/16 at 1847, Sleep 0102 (Given - Provider: Melisa Navarro, ROLF) glucagon (human recombinant) (GLUCAGEN) injection 1 mg 1 mg, Intramuscular, PRN, Starting on 12/19/16 at 0916, Until Wed12/22/16 at 1847, Low blood sugar, If FSBS less than 70 mg/dl, patient cannot take orally and without IV access, If patient is without IV access, give Glucagon 1 mg Intramuscularly, insert IV and call physician. miconazole (MICATIN) 2 % powder Topical, PRN, Starting on Wed12/18/16 at 2014, Until Wed12/22/16 at 184, Wound Care, Application site: folds ondansetron (ZOFRAN) tablet 4 mg 4 mg, Oral, EVERY 8 HOURS PRN, Starting on 12/21/16 at 1650, Until Wed12/22/16 at 184, Nausea, Dissolve in mouth 2036 (Given - Provider: Keri Marquez, RN) documented in this encounter Orders Medications Ordered That Gaurav ht Not Have Been Administered Count Last Ordered Date First Ordered Date ondansetron (ZOFRAN) injection 4 mg 1 12/21 dextrose 50 % solution 25 mL 1 12/19/2016 glucagon (human recombinant) (GLUCAGEN) injection 1 mg 1 12/19/2016 miconazole (MICATIN) 2 % powder 1 7 Nursing Count Last Ordered Date First Orde red Date MECH VTE PROPH NON-CANDIDATE 1 12/19/2016 ORTHOSTATIC BLOOD PRESSURE AND PULSE 1 12/06 ADMISSION 1 12/18/2016 CATHETERIZATION FOR SPEC COLLECTION 1 12/18 ED ENTER ADMISSION ORDER 1 12/18/2016 Consult Count Last Ordered Date First Orde red Date IP CONSULT TO NEPHROLOGY 1 12/19/2016 Transfer Count Last Ordered Date First Orde red Date BED REQUEST 1 12/18/2016 documented in this encounter Care Teams Director Employment Relationship Specialty Start Date End Date Sharee Segovia APRN [address] [place] [phone] PCP - General Nurse Practitioner-Family 09/21/16 documented as of this encounter
--- OUTSIDE RECORDS SUMMARY | 2024-02-16 14:57 | XMS_ITS | Encounter Summary ---
Author Organization [place] [address] Care Team Providers Care Shipmaster Name Role Phone Sharee Segovia APRN Primary Care Provider [phone] Reason for Visit * Reason Comments Medication Refill Encounter Details Date Type Department Care Team (Late st Contact Info) Description 01/13/2017 Refill [facility] [address] [place] [address] Joanna Hitchcock MD Medication Refill Social [...] TABLET BY MOUTH NIGHTLY 30 Tab 1 01/13/2017 7 isosorbide mononitrate (IMDUR) 60 mg Oral Tablet Sustained Release 24 hr TAKE ONE TABLET BY MOUTH ONCE DAILY 30 Tab 1 01/13/2017 7 UNIFINE PENTIPS 32 gauge x 5/32 Misc Needle USE WITH LANTUS ONCE DAILY 30 Each 01/13/2017 7 documented in this encounter Plan of Treatment Not on file documented as of this encounter Goals Goal Patient Goal Type Associated Problems Recent Progress Patient-Stated? Author Blood Pressure < 140/90 Blood Pressure 124/52(2018 4:00 PM EDT) No Sivla Mathew RMA BMI (Calculated) < 30 General [...] Da te UNIFINE PENTIPS 32 gauge x 5/32 Misc Needle USE WITH LANTUS ONCE DAILY Reorder 12/11/2016 01/13/2017 isosorbide mononitrate (IMDUR) 60 mg Oral Tablet Sustained Release 24 hr Take 1 Tab by mouth daily. Reorder 11/17/2016 01/13/2017 atorvastatin (LIPITOR) 20 mg Oral Tablet Take 1 Tab by mouth nightly. Reorder 11/17/2016 01/13/2017 documented as of this encounter Care Teams Shipmaster Relationship Specialty Start Date End Date Sharee Segovia APRN [address] [place] [phone] PCP - General Nurse Practitioner-Family 09/21/16 documented as of this encounter
--- OUTSIDE RECORDS SUMMARY | 2024-02-16 14:57 | XMS_ITS | Encounter Summary ---
Author Organization [place] [address] Care Team Providers Care Wire Drawing Machine Operator Name Role Phone Sharee Segovia APRN Primary Care Provider [phone] Reason for Visit * Reason Comments Medication Refill Encounter Details Date Type Department Care Team (Late st Contact Info) Description 11/26/2016 Refill [facility] [address] [place] [address] Joanna Hitchcock MD Medication Refill Social [...] Refills Last Filled Start Date End Date amitriptyline (ELAVIL) 75 mg Oral Tablet TAKE ONE TABLET BY MOUTH NIGHTLY 30 Tab 11/26/2016 7 NIFEdipine (PROCARDIA XL) 90 mg Oral Tablet Extended Rel 24 hr TAKE ONE TABLET BY MOUTH DAILY 30 Tab 2 11/26/2016 7 roPINIRole (REQUIP) 0.5 mg Oral Tablet TALE 3 TABLET BY MOUTH DAILY FOR 1.5MG AT BEDTIME 90 Tab 5 11/26/2016 7 documented in this encounter Plan of [...] Discontinue Reason Start Date End Da te roPINIRole (REQUIP) 0.5 mg Oral Tablet Take 1.5 mg by mouth nightly. Reorder 11/26/2016 amitriptyline (ELAVIL) 75 mg Oral Tablet TAKE ONE TABLET BY MOUTH NIGHTLY Reorder 10/22/2016 11/26/2016 documented as of this encounter Care Teams Wire Drawing Machine Operator Relationship Specialty Start Date End Date Sharee Segovia APRN [address] [place] [id number] PCP - General Nurse Practitioner-Family 09/21/16 documented as of this encounter
--- OUTSIDE RECORDS SUMMARY | 2024-02-16 14:57 | XMS_ITS | Encounter Summary ---
Author Organization [place] [address] Care Team Providers Care Lens Shaper Grinder Name Role Phone Sharee Segovia APRN Primary Care Provider [phone] Reason for Visit * Reason Onset Date Comments Care Transition 12/23/2016 Care Management - Chart Review 12/23/2016 Hospital Follow Up 12/23/2016 Encounter Details Date Type Department Care Team (Late st Contact Info) Description 12/23/2016 Patient Outreach [facility] [address] [place] [address] Viktoriya Pizarro LPN Care Transition; Care Management [...] Progress Notes * Viktoriya Sevilla LPN - 12/23/2016 8:44 AM EDT Hospital Discharge on 12/22/16 related to JACK (acute kidney injury does not meet the criteria for [facility] to follow at this time patient to remain a Level 1. documented in this encounter Miscellaneous Notes * Patient Instructions - Birdie Amor RMA - 12/23/2016 12:25 PM EDT Pt is in rest home documented in this encounter Plan of [...] on filedocumented in this encounter Care Teams Lens Shaper Grinder Relationship Specialty Start Date End Date Sharee Segovia APRN [address] [place] [phone] PCP - General Nurse Practitioner-Family 09/21/16 documented as of this encounter
--- OUTSIDE RECORDS SUMMARY | 2024-02-16 14:57 | XMS_ITS | Encounter Summary ---
Author Organization [place] [address] Care Team Providers Care Lpn Instructor Name Role Phone Sharee Segovia APRN Primary Care Provider [phone] Reason for Visit * Reason Comments Chest Pain CP/SOB- pt having ch est pain and shortness of breath since 1900, pt was given asa 324, and 2 nitro sprays per EMS. Alert and orient. * Auth/Cert/Inpt Specialty Diagnoses / Procedures Referred By Contac t Referred To Contact Critical Care Medicine Diagnoses Acute chest pain [facility] [address] [facility] [place] [address] Phone: tel: fax: Referral ID Status Reason Start Date Expiration Date Visits Re quested Visits Authorized [id number] 04/11/2017 04/11/2018 1 1 Encounter Details Date Type Department Care Team (Late st Contact Info) Description 04/10/2017 9:22 PM EST - 04/13/2017 6:02 PM EST Emergency [facility] [address] [facility] [place] [address] Brian Castillo MD [address] [place] [address] Emili Herbert MD [address] [place] [address] Aftab Crawford MD [address] [place] [address] Sherif Bartholomew MD [address] [place] [address] Jefferson Mckeon MD [address] [place] [place] [address] Acute chest pain (Primary Dx) Discharge Disposition: Home [...] Sign Reading Time Taken Comments Blood Pressure 95/53 04/13/2017 4:30 PM EST Pulse 60 04/13/2017 4:30 PM EST Temperature 36.8 ??C (98.3 ??F) 04/13/2017 4:30 PM ES T Respiratory Rate 20 04/13/2017 4:30 PM EST Oxygen Saturation 98% 04/13/2017 4:30 PM EST Inhaled Oxygen Concentration - - Weight 102.2 kg (225 lb 3.2 oz) 04/13/2017 2:34 AM EST Height 174 cm (5' 8.5 ) 04/10/2017 11:5 3 PM EST Body Mass Index 33.74 04/10/2017 11:53 PM EST documented in this encounter Discharge Summaries * Sherif Bartholomew MD - 04/13/2017 4:48 PM EST [facility] Discharge Summary Patient Name: Faby Palm : 1950 Admit Date: 04/10/2017 Discharge Date: 04/13/2017 Admitting Physician: Emili Herbert MD Discharge Physician: Sherif Bartholomew MD Reason for Hospitalization: Active Hospital Problems *Acute chest pain Schizoaffective disorder, depressive type (HCC) S/P ablation of atrial flutter Chronic diastolic CHF (congestive heart failure) ([facility]) Coronary artery disease involving cl[place] coronary artery of clark[place] point heart with unstable angina pectoris ([facility]) Essential hypertension History of CVA (cerebrovascular accident) Hospital Course/Significant Findings: Admitted for epigastric pain. Cardiac enzymes have been negative. No findings on telemetry. Stress test is unremarkable. The patient is likely having acute gastritis. No NSAIDs. Protonix. Procedures Performed: None Consults: Discharge Exam: Afebrile. General appearance: alert, appears stated age and cooperative ENT/MOUTH: moist mucous membranes, non tender to palpation. Neck: no stifness, no swelling Respiratory: CTA B/l Cardiovascular: normal and regular S1/S2 Gastroentestinal: ND, NT.No organomegaly palpated. MSK: full ROM in all 4 extremities Psyhiatric: alert, awake, and oriented. Discharge Diagnoses: Acute chest pain Condition at Discharge: stable Disposition: Home Discharge Medications:: Medication List START taking these medications aspirin 81 mg Chew Dose: 81 mg Qty: 60 Tab Refills: 0 Start: 04/14/2017 81 mg, Oral, DAILY CONTINUE taking these medications acetaminophen 325 mg [...] Oral, 2 TIMES DAILY WITH MEALS fUROsemide 40 mg Tab Dose: 40 mg Qty: 30 Tab Refills: 2 Commonly known as: LASix 40 mg, Oral, DAILY glipiZIDE 10 mg Tab Dose: 10 mg Refills: 0 Commonly known as: GLUCOTROL insulin glargine 100 unit/mL Soln Dose: 28 Units Qty: 10 mL Refills: 12 Commonly known as: LANTUS 28 Units, Subcutaneous, EVERY EVENING (INSULIN) insulin syringe,safetyneedle 1 mL 30 gauge x 5/16 Syrg Dose: 1 Syringe Qty: 30 Syringe Refills: 1 1 Syringe, Misc.(Non-Drug; Combo Route), NIGHTLY isosorbide mononitrate 60 mg Tb24 Qty: 30 Tab Refills: 1 Commonly known as: IMDUR TAKE ONE TABLET BY MOUTH ONCE DAILY metFORMIN 500 mg Tab Dose: 500 mg Refills: 0 Commonly known as: GLUCOPHAGE metoprolol 50 mg Tab Qty: 60 Tab Refills: 2 Commonly known as: LOPRESSOR TAKE 1 TABLET BY MOUTH 2 TIMES DAILY NIFEdipine 90 mg Tr24 Dose: 90 mg Qty: 30 Tab Refills: 1 Commonly known as: PROCARDIA XL 90 mg, Oral, DAILY nitroGLYCERIN 0.4 mg Subl Dose: 0.4 [...] known as: ZOLOFT STOP taking these medications ibuprofen 600 mg Tab Commonly known as: ADVIL;MOTRIN Where to Get Your Medications These medications were sent to [facility] [place] [address] [address] [phone] [address] [facility] [address] ?? aspirin 81 mg Chew Follow Up: Sharee Segovia ARNP [address] [place] [address] In 3 days Néstor Dang MD [address] [place], [place] [address] [address] [facility] [address] Schedule an appointment as soon as possible for a visit Signed: Sherif Bartholomew MD 04/13/2017 4:48 PM documented in this encounter Discharge Instructions * Attachments The following attachments cannot be sent through Care Everywhere. * ASPIRIN, ASA ORAL TABLETS (MAORI) documented in this encounter Medications at Time [...] by mouth daily. 60 Tab 04/14/2017 8 fUROsemide (LASIX) 40 mg Oral TabletIndications :Peripheral edema Take 1 Tab by mouth daily. 30 Tab 2 02/03/2017 8 glipiZIDE (GLUCOTROL) 10 mg Oral Tablet Take 10 mg by mouth 2 times daily (with meals). 8 insulin syringe,safetynee dle 1 mL 30 gauge x 5/16 Misc Syringe 1 Syringe by LivQuikc.(Non-Drug ; Combo Route) route nightly. 30 Syringe 1 08/04/2016 8 isosorbide mononitrate (IMDUR) 60 mg Oral Tablet Sustained Release 24 hr TAKE ONE TABLET BY MOUTH ONCE DAILY 30 Tab 1 03/24/2017 9 metFORMIN (GLUCOPHAGE) 500 mg Oral Tablet Take [...] Last Filled Start Date End Date aspirin 81 mg Oral Tablet, Chewable Take 1 Tab by mouth daily. 60 Tab 04/14/2017 09/21/2017 documented in this encounter Discharge Disposition Disposition Code Departure Means Destination Home or Self Residential documented in this encounter Progress Notes * Evlis Singh RN - 04/13/2017 6:02 PM EST Discharge orders received. IV removed. Catheter intact. Discharge instructions reviewed with patient. Awaiting transport. * Yvette Smalls CSW - 04/13/2017 5:24 PM EST 04/13/17 1722 Final Note Actual Discharge Plan 04/13- care coordination- pt to discharge back to the [facility]- cc spoke with the [facility]'s coordinator- and set up transport [facility] - the center'scoordinator was fine with pt's return - pt to d/c back to the [facility] with cab transportation * Tr Warren MD - 04/13/2017 2:30 PM EST [facility] Patient: Faby Palm LOS: 0 days SUBJECTIVE: The patient still complains of left sided chest pain. No change in intensity. Just constant. No associated symptoms. Has foul smelling pungent urine. REVIEW OF SYSTEMS: NEGATIVE FOR: dyspnea, palpitations, dizziness, syncope, edema POSITIVE FOR: See subjective. Review of systems is otherwise negative. MEDICATIONS: Scheduled Medications: ??? ARIPiprazole 30 mg Oral Daily ??? aspirin 81 mg Oral Daily ??? atorvastatin 20 mg Oral Nightly ??? ferrous sulfate 325 mg Oral BID WM ??? fUROsemide 40 mg Oral Daily ??? glipiZIDE 10 mg Oral BID WM ??? heparin, porcine (PF) 5,000 Units Subcutaneous 3 times per day ??? insulin aspart 1-10 Units Subcutaneous QID WM ??? insulin glargine 28 Units Subcutaneous QPM (Insulin) ??? isosorbide mononitrate 60 mg Oral Daily ??? metFORMIN 500 mg Oral BID ??? metoprolol 50 mg Oral BID ??? NIFEdipine 90 mg Oral Daily ??? pantoprazole 40 mg Oral Daily ??? ranolazine 1,000 mg Oral 2 times per day ??? sertraline 200 mg Oral Daily Continuous Infusions: PRN Medications: acetaminophen OR acetaminophen, dextrose, glucagon (human recombinant), nitroGLYCERIN, oxyCODONE-acetaminophen, sodium chloride 0.9%, sodium chloride 0.9% PHYSICAL EXAMINATION: Vitals: 04/13/17 1138 BP: 97/50 Pulse: 58 Resp: 16 Temp: 98.4 ??F (36.9 ??C) SpO2: 99% Temp (24hrs), Av.9 ??F (36.6 ??C), Min:97.5 ??F (36.4 ??C), Max:98.4 ??F (36.9 ??C) Weight: 225 lb 3.2 oz (102.2 kg) Intake/Output Summary (Last 24 hours) at 04/13/17 1430 Last data filed at 04/13/17 1154 Gross per 24 hour Intake 1800 ml Output 400 ml Net 1400 ml CONSTITUTIONAL: No apparent distress. Alert and [...] STUDIES: Lab Results Component Value Date WBC 9.4 04/10/2017 HGB 12.1 04/10/2017 HCT 36.0 04/10/2017 MCV 90.2 04/10/2017 PLT 189 04/13/2017 Lab Results Component Value Date NA 142 04/10/2017 K 4.3 04/10/2017 CL 99 04/10/2017 CO2 29 04/10/2017 BUN 20 04/10/2017 CREATININE 1.32 (H) 04/10/2017 CALCIUM 9.2 04/10/2017 GLU 135 (H) 04/10/2017 Lab Results Component Value Date BNP 481 (H) 04/11/2017 TELE-NSR, Occ PVC ACTIVE PROBLEM LIST: Active Hospital Problems Diagnosis ??? *Acute chest pain ??? Schizoaffective disorder, depressive type (HCC) ??? S/P ablation of atrial flutter ??? Chronic diastolic CHF (congestive heart failure) ([facility]) ??? Coronary artery disease involving [place] coronary artery of [place] heart with unstable angina pectoris ([facility]) ??? Essential hypertension ??? History of CVA (cerebrovascular accident) ASSESSMENT AND PLAN: This is a 66 y.o. female who was admitted on 04/10/2017 and has the following issues: 1. Chest Pain Trop Neg x 3, EKG w/ old inferior AL. Nonspecific ST changes. Gabby Nuc results Pend Continue ranexa, Imdur, procardia ?? 2. CAD S/p cath 10/15/16. Gabby Nuc Pend. Echo stable Asa, statin, BB ?? 3. HTN Stable, con't meds BB, CCB, would benefit from cesario-I if not contraindicated with renal. BP too low at present ?? 4. DM ?? 5. CKD Cr 1.32. Near baseline ?? 6. Schitzoaffective disorder ?? 7. S/P ablation of atrial flutter -s/p ablation 12/21-no f/u with EP since Con't asa. If recurrence then AC to be started 8. Foul smelling urine Check UA Gabby Nuc results-prelim are normal. No further cardiac workup planned. OK to discharge from Cardiology. Will follow up on final results Ollie Davis APRN 04/13/2017 2:30 PM * Manju Reid RN - 04/13/2017 7:00 AM EST Pt had few complaints, though chest pain still persists per pt. VSS across the board. States that PRN Percocet eases the pain she has which she says is chest pain that radiates to her jaw. Pt slept relatively well throughout the night. BA on, no falls this shift. Will continue to monitor. * Elvis Singh RN - 04/12/2017 4:16 PM EST Pt had an uneventful shift. Pt given percocet for chest pain. Otherwise VSS. Call light within reach. BA on. Will continue to monitor. * Ela Curiel - 04/12/2017 1:40 PM EST 04/12/17 1339 Pastoral Care Encounter Visited With Out of room Date of visit 04/12/17 Visit Type Follow-up Need to follow-up? Yes Muslim Needs Muslim articles;Pastoral care brochure ([place]) Spiritual Needs Denomination? Anglican Muslim Affiliation [facility] Pastoral Care Issues Comments will keep in prayer Pastoral Care Plan/Intervention Plan/Intervention Prayer Plan/Intervention Comments [facility] 04/12/2017 Ela Curiel * Aftab Crawford MD - 04/12/2017 11:58 AM EST Subjective: Faby Palm is a(n)66 y.o. female admitted for work-up and treatment for . LOS: 0 days Stress test this am Left sided chest pain 8.5/10 Vitals as noted Vitals: 04/12/17 0909 BP: 130/60 Pulse: 74 Resp: 18 Temp: 98.5 ??F (36.9 ??C) SpO2: 96% Physical Exam: NAD Chest clear CV -rrr abd soft Ext - no cce Labs: CBC: Recent Labs 04/10/17214804/11/17 0957 WBC 9.4 -- RBC 3.99 -- HGB 12.1 -- HCT 36.0 -- MCV 90.2 -- MCH 30.3 -- RDW 14.0 -- PLT 223 199 MPV 9.5 9.6 Recent Labs 04/10/17 2149 NA 142 K 4.3 CL 99 CO2 29 BUN 20 CREATININE 1.32* CALCIUM 9.2 GFRAFRAM 49 GFRNONAFRAM 42 GLU 135* U/A: Imaging Scanned Rhythm Strips Result Date: 04/12/2017 Ordered by an unspecified provider. I have reviewed all current medications. ??? ARIPiprazole 30 mg Oral Daily ??? aspirin 81 mg Oral Daily ??? atorvastatin 20 mg Oral Nightly ??? ferrous sulfate 325 mg Oral BID WM ??? fUROsemide 40 mg Oral Daily ??? glipiZIDE 10 mg Oral BID WM ??? heparin, porcine (PF) 5,000 Units Subcutaneous 3 times per day ??? insulin aspart 1-10 Units Subcutaneous QID WM ??? insulin glargine 28 Units Subcutaneous QPM (Insulin) ??? isosorbide mononitrate 60 mg Oral Daily ??? metFORMIN 500 mg Oral BID ??? metoprolol 50 mg Oral BID ??? NIFEdipine 90 mg Oral Daily ??? pantoprazole 40 mg Oral Daily ??? ranolazine 1,000 mg Oral 2 times per day ??? sertraline 200 mg Oral Daily Assessment/Plan: Active Hospital Problems Diagnosis ??? *Acute chest pain ??? Schizoaffective disorder, depressive type ([facility]) ??? S/P ablation of atrial flutter ??? Chronic diastolic CHF (congestive heart failure) ([facility]) ??? Coronary artery disease involving [place] coronary artery of [place] heart with unstable angina pectoris ([facility]) ??? Essential hypertension ??? History of CVA (cerebrovascular accident) Plan: ?? Acute chest pain - negative troponins, no acute EKG findings. CXR clear. Cardiology consulted due to h/o CAD. Stress test ordered. ?? CAD - Cath 10/2016: ?? Mid LAD 50-60% stenosis ?? Ostial RCA 50% stenosis.200mcg of IC NTG administered and angiogram performed. ?? The ejection fraction is greater than 55% by visual estimate ?? S/p A.flutter ablation ?? HTN - lopressor, procardia ?? Chronic diastolic CHF- lasix ?? DM - insulins ?? GERD - protonix Disposition - if chest pain persists despite negative stress test, consult GI. Aftab Crawford MD 04/12/2017 * Kike Burgos, RN - 04/11/2017 7:40 PM EST Pt had uneventful shift. VSS. Ambulated well x 1 to restroom. Chest pain controlled with prn pain medications. * Mike Dunaway - 04/11/2017 5:50 PM EST 04/11/17 1700 Pastoral Care Encounter Visited With Patient Date of visit 04/11/17 Visit Type Initial Need to follow-up? Yes Muslim Needs Prayer Sacramental Needs Has Patient Received SOS? Yes Date of Sacrament of the Sick (Anointing) 04/11/17 Pastoral Care Plan/Intervention Plan/Intervention Sacraments;Prayer 04/11/2017 Mike Dunaway * Kelly Sung MSW - 04/11/2017 11:04 AM EST 04/11/17: CC initial assessment: Pt admitted with chest pain, shortness of breath. Met with pt at bedside. Pt from [facility], stated facility will transport at discharge. Pt needs assistance with ADLs, no HH, DME includes a walker and a cane. PCP: Juliette, pharmacy: [facility]. No reported issues obtaining or affording medications. Provided obs letter, pt signed, on chart, no questions. No discharge needs identified. CC to follow. documented in this encounter H&P Notes * Aftab Crawford MD - 04/11/2017 8:39 AM EST [facility] History and Physical Name: Faby Palm ADDRESS: [address] [place] [address] : 1950 AGE: 66 y.o. Admitting Physician: Emili Herbert MD Date of Admit: 04/10/2017 PCP:Sharee Segovia ARNP Chief Complaint: Chest Pain (CP/SOB- pt having chest pain and shortness of breath since 1900, pt was given asa 324, and 2 nitro sprays per EMS. Alert and orient.) History of Present Illness: Patient is a 66 y.o. female with h/o CAD presents with left sided chestpain since yesterday that is constant. There is some relief with nitro paste. She denies SOB, cough, productive sputum or fever. troponins negative. No acute ST changes on EKG. She was admitted for evaluation. Past Medical History: Diagnosis Date ??? Atrial flutter (HCC) EPS, AFL Ablation on 12/31/[address] Tee ??? CHF (congestive heart failure) (HCC) ??? COPD (chronic obstructive pulmonary disease) (HCC) ??? DDD (degenerative disc disease) ??? Diabetes mellitus (HCC) ??? Hypertension ??? AL (myocardial infarction) ??? RLS (restless legs syndrome) [...] mouth daily. 02/23/17 Yes Eric Gavin MD atorvastatin (LIPITOR) 20 mg Oral Tablet TAKE ONE TABLET BY MOUTH NIGHTLY 03/24/17 Yes Joanna Pierce MD ferrous sulfate 325 mg (65 mg iron) Oral Tablet Take 1 Tab by mouth 2 times daily (with meals). 04/04/15 Yes Campbell Huston MD fUROsemide (LASIX) 40 mg Oral Tablet Take 1 Tab by mouth daily. 02/03/17 Yes Sharee Segovia ARNP glipiZIDE (GLUCOTROL) 10 mg Oral Tablet Take 10 mg by mouth 2 times daily (with meals). Yes Provider, Historical ibuprofen (ADVIL;MOTRIN) 600 mg Oral Tablet Take 1 Tab by mouth every 6 hours as needed for Pain. 02/23/17 Yes Eric Gavin MD insulin glargine (LANTUS) 100 unit/mL SubQ Solution Subcutaneous (Inject under the skin) 28 Units every evening. 02/23/17 Yes Eric Gavin MD isosorbide mononitrate (IMDUR) 60 mg Oral Tablet Sustained Release 24 hr TAKE ONE TABLET BY MOUTH ONCE DAILY 03/24/17 Yes Joanna Pierce MD metFORMIN (GLUCOPHAGE) 500 mg Oral Tablet Take 500 mg by mouth 2 times daily. Yes Provider, Historical metoprolol (LOPRESSOR) 50 mg Oral Tablet TAKE 1 TABLET BY MOUTH 2 TIMES DAILY 01/26/17 Yes Joanna Pierce MD NIFEdipine (PROCARDIA XL) 90 mg Oral Tablet Extended Rel 24 hr Take 1 Tab by mouth daily. 06/24/16 Yes Campbell Huston MD nitroGLYCERIN (NITROSTAT) 0.4 mg SL Tablet, Sublingual Place 1 Tab under the tongue every 5 minutesas needed for Chest pain. 11/19/16 Yes Sharee Segovia ARNP pantoprazole (PROTONIX) 40 mg Oral Tablet, Delayed Release (E.C.) TAKE ONE TABLET BY MOUTH ONCE DAILY 11/26/16 Yes Joanna Pierce MD RANEXA 1,000 mg Oral Tablet Sustained Release 12 hr TAKE ONE TABLET BY MOUTH EVERY 12 HOURS 04/08/17 Yes Joanna Pierce MD sertraline (ZOLOFT) 100 mg Oral Tablet Take 200 mg by mouth daily. Reported on 08/12/2016 Yes Provider, Historical insulin syringe,safetyneedle 1 mL 30 gauge x 07/21 Misc Syringe 1 Syringe by Misc.(Non-Drug; Combo Route) route nightly. 08/04/16 Joanna Pierce MD Allergies Allergen Reactions ??? Compazine [Prochlorperazine Edisylate] ??? [place] ??? Pentazocine Hcl ??? Prochlorperazine Maleate ??? Talwin [Pentazocine Lactate] Social: reports that she has never smoked. She has never used smokeless tobacco. She reports that she does not drink alcohol or use drugs. Family History: family history includes Cancer in her mother; Heart Disease in her sister; No KnownProblems in her son; Seizures in her daughter. Review of Systems: The listed systems were reviewed and reveal the following in addition to any already discussed in the HPI: Review of Systems Constitutional: Negative. HENT: Negative. Eyes: Negative. Respiratory: Negative. Cardiovascular: chest pain Gastrointestinal: Negative. Genitourinary: Negative. Musculoskeletal: Negative. Skin: Negative. Neurological: Negative. Endo/Heme/Allergies: Negative. Psychiatric/Behavioral: Negative. All other systems reviewed and are negative. Vitals: Blood pressure 133/63, pulse 61, temperature 97.2 ??F (36.2 ??C), temperature source Oral, resp. rate 14, height 5' 8.5 (1.74 m), weight 249 lb 2 oz (113 kg), SpO2 95 %, not currently . Body mass index is 37.33 kg/m??. Body surface area is 2.26 meters squared. Physical Exam Vitals reviewed. Constitutional: Patient is oriented to person, place, and time. Appears well- developed and well-nourished. No distress. HENT: [...] and breath sounds normal. No respiratory distress. Has no wheezes. Has no rales. Exhibits no tenderness. Abdominal: Soft. Bowel sounds are normal. Exhibits no distension and no mass. No tenderness. Has norebound and no guarding. Musculoskeletal: Normal range of motion. Lymphadenopathy: Patient has no cervical adenopathy. Neurological: Patient is alert and oriented to person, place, and time. Displays normal reflexes. No cranial nerve deficit. Exhibits normal muscle tone. Skin: Skin is warm and dry. No rash noted. Patient is not diaphoretic. Psychiatric: Patient has a normal mood and affect. Labs: Admission on 04/10/2017 Component Date Value ??? WBC 04/10/2017 9.4 ??? RBC 04/10/2017 3.99 ??? Hgb 04/10/2017 12.1 ??? Hct 04/10/2017 36.0 ??? MCV 04/10/2017 90.2 ??? MCH 04/10/2017 30.3 ??? MCHC 04/10/2017 33.6 ??? RDW 04/10/2017 14.0 ??? Platelet 04/10/2017 223 ??? MPV 04/10/2017 9.5 ??? Neut Percent 04/10/2017 73.1 ??? Lymph Percent 04/10/2017 18.2 ??? [place] Percent 04/10/2017 4.9 ??? Eos Percent 04/10/2017 3.2 ??? Baso Percent 04/10/2017 0.6 ??? Neut # 04/10/2017 6.9 ??? Lymph # 04/10/2017 1.7 ??? [place] # 04/10/2017 0.5 ??? Eos# 04/10/2017 0.3 ??? Baso # 04/10/2017 0.1 ??? Sodium 04/10/2017 142 ??? Potassium 04/10/2017 4.3 ??? Chloride 04/10/2017 99 ??? Total CO2 04/10/2017 29 ??? Anion Gap 04/10/2017 14 ??? Calcium 04/10/2017 9.2 ??? Glucose Lvl 04/10/2017 135* ??? BUN 04/10/2017 20 ??? Creatinine 04/10/2017 1.32* ??? GFR Afr Am 04/10/2017 49 ??? GFR Non Afr Am 04/10/2017 42 ? ? Troponin-T 04/10/2017 <0.01 ? ? Troponin-T 04/11/2017 <0.01 ? ? Troponin-T 04/11/2017 <0.01 Radiology: Xr Chest Pa And Lateral Result Date: 04/10/2017 Unchanged cardiomegaly. Ek Ekg 12 Lead Result Date: 04/11/[address] [facility] Lowe Interpretive Statements SINUS RHYTHM LOW QRS VOLTAGE IN PRECORDIAL LEADS SEPTAL MYOCARDIAL INFARCTION, PROBABLY OLD INFERIOR MYOCARDIAL INFARCTION, PROBABLY OLD WARNING: DATA QUALITY MAY AFFECT INTERPRETATION Ek Ekg 12 Lead Result Date: 04/10/[address] Sandra RauschSuki Chrissy Interpretive Statements SINUS BRADYCARDIA LOW QRS VOLTAGE IN PRECORDIAL LEADS [QRS DEFLECTION < 1.0 mV IN CHEST LEADS] INFERIOR MYOCARDIAL INFARCTION [40+ ms Q WAVE AND/OR ST/T ABNORMALITY IN II/aVF], PROBABLY OLD ANTEROSEPTAL MYOCARDIAL INFARCTION [40+ ms Q WAVE IN V1-V4], PROBABLY OLD EKG: Results for orders placed during the hospital encounter of 04/10/17 EK EKG 12 LEAD Narrative NOTICE: Preliminary tracing available for review; Final Interpretation by physician to follow. Impression Stationary ECG Study [facility] Suki Chrissy Interpretive Statements SINUS RHYTHM LOW QRS VOLTAGE IN PRECORDIAL LEADS SEPTAL MYOCARDIAL INFARCTION, PROBABLY OLD INFERIOR MYOCARDIAL INFARCTION, PROBABLY OLD WARNING: DATA QUALITY MAY AFFECT INTERPRETATION Assessment: Active Hospital Problems Diagnosis ??? *Acute chest pain ??? Schizoaffective disorder, depressive type ([facility]) ??? S/P ablation of atrial flutter ??? Chronic diastolic CHF (congestive heart failure) ([facility]) ??? Coronary artery disease involving [place] coronary artery of [place] heart with unstable angina pectoris ([facility]) ??? Essential hypertension ??? History of CVA (cerebrovascular accident) Plan: Acute chest pain - negative troponins, no acute EKG findings. CXR clear. Cardiology consulted due to h/o CAD. CAD - Cath 10/2016: ?? Mid LAD 50-60% stenosis ?? Ostial RCA 50% stenosis.200mcg of IC NTG administered and angiogram performed. ?? The ejection fraction is greater than 55% by visual estimate S/p A.flutter ablation HTN - lopressor, procardia Chronic diastolic CHF- lasix DM - insulins GERD - protonix Disposition based on trimmer loader recommendations. Aftab Crawford MD 04/11/2017 documented in this encounter Consult Notes * Tr Warren MD - 04/12/2017 9:11 AM EST [facility] Chief Complaint Patient presents with ??? Chest Pain CP/SOB- pt having chest pain and shortness of breath since 1900, pt was given asa 324, and 2 nitro sprays per EMS. Alert and orient. HPI: Faby Palm is a 66 y.o. female who was admitted to the hospital on 04/10/2017 left sided chest pain with radiation to her jaw and left arm. Pain described as sharp in nature. Symptoms started while she was eating dinner and has not subsided since. She lives at [facility] in [place] and the the symptoms they call EMS to transport to the hospital. No associated nausea, vomiting, or diaphoresis. PMHX: CAD, HTN, DM, HLD, aflutter s/p ablation Primary [employer] Consult[employer] Dr Devries REVIEW OF SYSTEMS: Constitutional: Denies weight loss, [...] ??? Diabetes mellitus (HCC) ??? Hypertension ??? AL (myocardial infarction) ??? RLS (restless legs syndrome) [...] Brown MD; Location: [facility]; Service: Endoscopy ALLERGIES: Allergies Allergen Reactions ??? Compazine [Prochlorperazine Edisylate] ??? [place] ??? Pentazocine Hcl ??? Prochlorperazine Maleate ??? Talwin [Pentazocine Lactate] HOME MEDICATIONS: Prior to Admission medications Medication Sig Start Date End Date Taking? Authorizing Provider acetaminophen 325 mg Oral Tab Take 650 mg by mouth every 4 hours as needed for Pain. Yes Provider, Historical ARIPiprazole (ABILIFY) 30 mg Oral Tablet Take 1 Tab by mouth daily. 02/23/17 Yes Eric Gavin MD atorvastatin (LIPITOR) 20 mg Oral Tablet TAKE ONE TABLET BY MOUTH NIGHTLY 03/24/17 Yes Joanna Pierce MD ferrous sulfate 325 mg (65 mg iron) Oral Tablet Take 1 Tab by mouth 2 times daily (with meals). 04/04/15 Yes Campbell Huston MD fUROsemide (LASIX) 40 mg Oral Tablet Take 1 Tab by mouth daily. 02/03/17 Yes Sharee Segovia ARNP glipiZIDE (GLUCOTROL) 10 mg Oral Tablet Take 10 mg by mouth 2 times daily (with meals). Yes Provider, Historical ibuprofen (ADVIL;MOTRIN) 600 mg Oral Tablet Take 1 Tab by mouth every 6 hours as needed for Pain. 02/23/17 Yes Eric Gavin MD insulin glargine (LANTUS) 100 unit/mL SubQ Solution Subcutaneous (Inject under the skin) 28 Units every evening. 02/23/17 Yes Eric Gavin MD isosorbide mononitrate (IMDUR) 60 mg Oral Tablet Sustained Release 24 hr TAKE ONE TABLET BY MOUTH ONCE DAILY 03/24/17 Yes Joanna Pierce MD metFORMIN (GLUCOPHAGE) 500 mg Oral Tablet Take 500 mg by mouth 2 times daily. Yes Provider, Historical metoprolol (LOPRESSOR) 50 mg Oral Tablet TAKE 1 TABLET BY MOUTH 2 TIMES DAILY 01/26/17 Yes Joanna Pierce MD NIFEdipine (PROCARDIA XL) 90 mg Oral Tablet Extended Rel 24 hr Take 1 Tab by mouth daily. 06/24/16 Yes Campbell Huston MD nitroGLYCERIN (NITROSTAT) 0.4 mg SL Tablet, Sublingual Place 1 Tab under the tongue every 5 minutesas needed for Chest pain. 11/19/16 Yes Sharee Segovia ARNP pantoprazole (PROTONIX) 40 mg Oral Tablet, Delayed Release (E.C.) TAKE ONE TABLET BY MOUTH ONCE DAILY 11/26/16 Yes Joanna Pierce MD RANEXA 1,000 mg Oral Tablet Sustained Release 12 hr TAKE ONE TABLET BY MOUTH EVERY 12 HOURS 04/08/17 Yes Joanna Pierce MD sertraline (ZOLOFT) 100 mg Oral Tablet Take 200 mg by mouth daily. Reported on 08/12/2016 Yes Provider, Historical insulin syringe,safetyneedle 1 mL 30 gauge x 07/21 Misc Syringe 1 Syringe by [facility].(Non-Drug; Combo Route) route nightly. 08/04/16 Joanna Pierce MD HOSPITAL MEDICATIONS: Scheduled Medications: ??? ARIPiprazole 30 mg Oral Daily ??? aspirin 81 mg Oral Daily ??? atorvastatin 20 mg Oral Nightly ??? ferrous sulfate 325 mg Oral BID WM ??? fUROsemide 40 mg Oral Daily ??? glipiZIDE 10 mg Oral BID WM ??? heparin, porcine (PF) 5,000 Units Subcutaneous 3 times per day ??? insulin aspart 1-10 Units Subcutaneous QID WM ??? insulin glargine 28 Units Subcutaneous QPM (Insulin) ??? isosorbide mononitrate 60 mg Oral Daily ??? metFORMIN 500 mg Oral BID ??? metoprolol 50 mg Oral BID ??? NIFEdipine 90 mg Oral Daily ??? nitroGLYCERIN 1 Inch Topical 4 times per day ??? pantoprazole 40 mg Oral Daily ??? ranolazine 1,000 mg Oral 2 times per day ??? sertraline 200 mg Oral Daily Continuous Infusions: PRN Medications: acetaminophen OR acetaminophen, dextrose, glucagon (human recombinant), morphine, nitroGLYCERIN, sodium chloride 0.9%, sodium chloride 0.9% SOCIAL HISTORY: Social History Social History ??? [...] on file Social History Narrative Lives at [facility] Has two children and two grandchildren. Is FAMILY HISTORY: Family History Problem Relation Age of Onset ??? Cancer Mother larnyx cancer ??? Heart Disease Sister ??? No Known Problems Son ??? Seizures Daughter PHYSICAL EXAMINATION: Vitals: 04/12/17 0517 BP: 179/85 Pulse: 81 Resp: 17 Temp: 98.3 ??F (36.8 ??C) SpO2: 100% Temp (24hrs), Av ??F (36.7 ??C), Min:97.8 ??F (36.6 ??C), Max:98.3 ??F (36.8 ??C) Weight: 223 lb (101.2 kg) Intake/Output Summary (Last 24 hours) at 02/05/18 0911 Last data filed at 04/12/17 0530 Gross per 24 hour Intake 360 ml Output 0 ml Net 360 ml CONSTITUTIONAL: No apparent distress. Alert and [...] STUDIES: Lab Results Component Value Date WBC 9.4 04/10/2017 HGB 12.1 04/10/2017 HCT 36.0 04/10/2017 MCV 90.2 04/10/2017 PLT 199 04/11/2017 Lab Results Component Value Date NA 142 04/10/2017 K 4.3 04/10/2017 CL 99 04/10/2017 CO2 29 04/10/2017 BUN 20 04/10/2017 CREATININE 1.32 (H) 04/10/2017 CALCIUM 9.2 04/10/2017 GLU 135 (H) 04/10/2017 Lab Results Component Value Date BNP 481 (H) 04/11/2017 Cardiac Cath 10/15/2016 Coronary Findings Dominance: Right Left Main The vessel is moderate in size. Left Anterior Descending The vessel is moderate in size. Mid LAD 50-60% stenosis. Left Circumflex The vessel is moderate in size. Right Coronary Artery Ostial RCA 50% stenosis. 200mcg of IC NTG administered and angiogram performed. TELE-NSR, Occ PVC ACTIVE HOSPITAL PROBLEM LIST: Active Hospital Problems Diagnosis ??? *Acute chest pain ??? Schizoaffective disorder, depressive type ([facility]) ??? S/P ablation of atrial flutter ??? Chronic diastolic CHF (congestive heart failure) (HCC) ??? Coronary artery disease involving [place] coronary artery of [place] heart with unstable angina pectoris (HCC) ??? Essential hypertension ??? History of CVA (cerebrovascular accident) ASSESSMENT AND PLAN: This is a 66 y.o. female with the followin. Chest Pain Trop Neg x 3, EKG w/ old inferior AL. Nonspecific ST changes. Atypical but has known CAD and risk factors. Will proceed with Gabby Nuc Continue ranexa, Imdur 2. CAD S/p cath 10/15/16. As above Last stress test 07/2016-No ischemia Asa, statin, BB 3. HTN Stable, con't meds BB, CCB, would benefit from cesario-I if not contraindicated with renal 4. DM 5. CKD Cr 1.32. Near baseline 6. Schitzoaffective disorder 7. S/P ablation of atrial flutter -s/p ablation 12/21-no f/u with EP since Previously on Eliquis Eliquis stopped due to falls per patient-Per record 06/23/16 Dr Warren to See Ollie Dvais, NIKO 04/12/2017 9:11 AM ATTENDING PHYSICIAN ATTESTATION: The patient was seen in collaboration with the nurse practioner. I have reviewed all the pertinent history, laboratory and radiology studies. I have taken a history and performed a physical examination of this patient. I have reviewed the history, physical, assessment and plan as outlined above. My findings are below: CC/HPI: Faby Palm is a 66 y.o. female we are seeing for cardiovascular issues. Patient with known non obstructive coronary artery disease presents with chest pain. Nearly 24 hours of pain without relieve with unchanged ECG and normal troponins. Has had cardiac cath in Oct 2016 (I reviewed films) showing non obstructive CAD in the mid LAD and mid RCA. Also had stress test (I reviewed films) in July 2016 which was normal. PMH includes CAD, HTN, CVA, atrial flutter with prior ablation in 2015, DM, CKD. EXAM: Vitals noted NAD RRR S1S2 CTA B Benign abdomen No edema STUDIES and LABS have been reviewed in detail. ASSESSMENT and PLAN: Faby Palm is a 66 y.o. female and has the following issues: 1. Chest pain ECG is unchanged and troponins are normal. Given her prior history of non obstructive CAD and significant cardiac risk factors we will order a cardiac stress testing and proceed with coronary angiography if needed for abnormal findings on stress testing 2. CAD Cont medical management 3. HTN Fair control so far Observe on current medications 4. DMII Plan per medicine 5. History of atrial flutter Appears her anticoagulation was discontinued at some point. No signs of recurrent atrial flutter since her ablation in 2015. Keep on asa for now and restart AC for any signs of afib or flutter. Tr Warren MD 04/12/2017 10:54 AM * Laila Terrazas MD - 04/11/2017 10:44 AM ESTAssociated Order(s): IP CONSULT TO CARDIOLOGY CARDIOLOGY CONSULT Faby Palm Today's Date: 04/11/2017 Date of Admission: 04/10/2017 Primary Care Provider: Sharee Segovia ARNP Forest[employer] Consultant: Jaycob Chief Complaint: CP Reason for consult CP Referring MD: Dr Zepeda HPI: Faby Palm is a 66 yo female presents with CP She has a PMHX of ASHD ,AF s/p ablation , chronic diastolic CHF, CKD presents with CP assoc with SOB She describes a sharp left sided pain assoc with jaw and arm pain She states the pain was better but not gone after NTG--similar presentation in 12/22 that lead to cath which showed 60% LAD disease and 50% ostial RCA She also relays a history of 40 pound wt gain over the last 3 months but wt seems similar to 12/22 wt She has a 2 pillow orthopnea and lower extremity edema for the last few weeks +abdominal distension + snoring ROS: Denies: Constitutional: fever, chills ENT: headaches, vertigo Cardiovascular: palpitations, lightheaded, syncope Pulmonary: cough, sputum production Gastrointestinal: abdominal pain, nausea, vomiting Genitourinary: change in bladder habits Musculoskeletal: weakness, joint complaints Integumentary: rash Endocrine: fatigue Hematologic/Lymphatic: abnormal bruising Allergic/Immunologic: hives Complains of: Chest pain /PND/orthopnea Allergies Allergen Reactions ??? Compazine [Prochlorperazine Edisylate] ??? [place] ??? Pentazocine Hcl ??? Prochlorperazine Maleate ??? Talwin [Pentazocine Lactate] Prior to Admission Medications Prescriptions Prior to Admission Medication Sig Dispense Refill Last Dose ??? acetaminophen 325 mg Oral Tab Take 650 mg by mouth every 4 hours as needed for Pain. 04/09/2017 at 1630 ??? ARIPiprazole (ABILIFY) 30 mg Oral Tablet Take 1 Tab by mouth daily. 30 Tab 0 04/10/2017 at 0900 ??? atorvastatin (LIPITOR) 20 mg Oral Tablet TAKE ONE TABLET BY MOUTH NIGHTLY 30 Tab 1 04/10/2017 at 0900 ??? ferrous sulfate 325 mg (65 mg iron) Oral Tablet Take 1 Tab by mouth 2 times daily (with meals).60 Tab 5 04/10/2017 at 1500 ??? fUROsemide (LASIX) 40 mg Oral Tablet Take 1 Tab by mouth daily. 30 Tab 2 04/10/2017 at 0900 ??? glipiZIDE (GLUCOTROL) 10 mg Oral Tablet Take 10 mg by mouth 2 times daily (with meals). 04/10/2017 at 1730 ??? ibuprofen (ADVIL;MOTRIN) 600 mg Oral Tablet Take 1 Tab by mouth every 6 hours as needed for Pain. 60 Tab 0 04/10/2017 at 1730 ??? insulin glargine (LANTUS) 100 unit/mL SubQ Solution Subcutaneous (Inject under the skin) 28 Units every evening. 10 mL 12 04/10/2017 at 2000 ??? isosorbide mononitrate (IMDUR) 60 mg Oral Tablet Sustained Release 24 hr TAKE ONE TABLET BY MOUTH ONCE DAILY 30 Tab 1 04/10/2017 at 0900 ??? metFORMIN (GLUCOPHAGE) 500 mg Oral Tablet Take 500 mg by mouth 2 times daily. 04/10/2017 at 1730 ??? metoprolol (LOPRESSOR) 50 mg Oral Tablet TAKE 1 TABLET BY MOUTH 2 TIMES DAILY 60 Tab 2 04/10/2017at 1730 ??? NIFEdipine (PROCARDIA XL) 90 mg Oral Tablet Extended Rel 24 hr Take 1 Tab by mouth daily. 30 Tab 1 04/10/2017 at 0900 ??? nitroGLYCERIN (NITROSTAT) 0.4 mg SL Tablet, Sublingual Place 1 Tab under the tongue every 5 minutes as needed for Chest pain. 20 Tab 2 04/10/2017 at Unknown time ??? pantoprazole (PROTONIX) 40 mg Oral Tablet, Delayed Release (E.C.) TAKE ONE TABLET BY MOUTH ONCEDAILY 30 Tab 6 04/10/2017 at 0900 ??? RANEXA 1,000 mg Oral Tablet Sustained Release 12 hr TAKE ONE TABLET BY MOUTH EVERY 12 HOURS 60 Tab 0 04/10/2017 at 0900 ??? sertraline (ZOLOFT) 100 mg Oral Tablet Take 200 mg by mouth daily. Reported on 08/12/2016 04/10/2017 at 0900 ??? insulin syringe,safetyneedle 1 mL 30 gauge x 5/16 Misc Syringe 1 Syringe by Misc.(Non-Drug; Combo Route) route nightly. 30 Syringe 1 Unknown at Unknown time Past Medical History: Past Medical History: Diagnosis Date ??? Atrial flutter (HCC) EPS, AFL Ablation on 12/31/[address] Tee ??? CHF (congestive heart failure) (HCC) ??? COPD (chronic obstructive pulmonary disease) (HCC) ??? DDD (degenerative disc disease) ??? Diabetes mellitus (HCC) ??? Hypertension ??? AL (myocardial infarction) ??? RLS (restless legs syndrome) [...] Labs: Lab Results Component Value Date HGB 12.1 04/10/2017 HCT 36.0 04/10/2017 PLT 199 04/11/2017 NA 142 04/10/2017 K 4.3 04/10/2017 CREATININE 1.32 (H) 04/10/2017 BUN 20 04/10/2017 TSH 5.200 (H) 02/20/2017 INR 1.09 11/10/2016 Vitals: Vitals: 04/10/17 2353 04/11/17 0345 04/11/17 0347 04/11/17 0903 BP: 133/63 120/59 BP Location: Left arm Left arm Patient Position: Sitting Semi Fowlers Pulse: 61 66 Resp: 14 16 Temp: 97.2 ??F (36.2 ??C) 97.5 ??F (36.4 ??C) TempSrc: Oral Oral SpO2: 95% 99% Weight: 249 lb 2 oz (113 kg) Height: 5' 8.5 (1.74 m) Body mass index is 37.33 kg/m??. TELEMETRY: SR-SB Physical Exam: GEN: Alert, pleasant and oriented x3/ pt snoring nad propped on 3 pillows when I arrived I room HEENT: Sclerae anicteric. No xanthelasmas. EOM's intact. NECK: Supple. Carotids without bruits. +JVD LUNGS: coarse BS HEART: RRR, no murmur, gallop, or rub. ABD: soft, nontender, positive bowel sounds EXT: 1 + edema, NEURO: no obvious focal abnormalities EKG: NSR , q waves in septal and inferior leads --similar to previous Echo 07/31/16: EF 55%, RVSP 29 mmHg Assessment: Chest pain -typical features -Trop neg x 3 -EKG NSR no acute ischemic changes changes [facility] 10/22 -mid LAD 50-60%,ostial RCA 50% -on statin,AUBRIE,BB,ranexa Acute on chronic CHF -EF 55% on 07/22 echo -? Overloaded causing CP -right sided -probable untx GINA -CXR-cardiomegaly PAFL -hx of flutter ablation 2016 -remains in SR -[id number] -off AC d/t maintain SR HTN DM2 Obesity H/o CVA Mood disorder CKD Plan: -no evidence of ACS (trop negative and EKG stable ) --LHC in 10/22 with moderate disease of LAD (60%) and RCA (50%) --best treated medically --hx supports some exacerbation of diastolic dysfxn and mild overload--defer further ischemic evaluation to Dr Terrazas -strict I and O's/daily wts/check BNP/check echo -add asa -consider outpt sleep study Further input to follow-up from Dr. Nini Coello PA-C 04/11/2017 Patient seen and examined independently. Labs, vitals, and other pertinent information reviewed. Reviewed MLP note including Assessment and Plan above. Personally reviewed past medical history, social and family histories. In addition: HPI: 66 y/o WF with h/o moderate non-obstructive CAD presented with sudden episode of sharp pain inleft side of chest and jaw. Pain random and not exertional. No associated sx of N/V/diaphoresis. EKG is non-ischemic and troponin's are negative. ROS: As above Physical Exam: Gen: A+O. NAD Neck: No JVD CV: RRR no murmur or Gallops Lungs: Clear BL Ext: +1 LE edema Plan: No objective evidence of ischemia. I personally reviewed C images from October 2016. LAD and RCA lesions appear to be moderate at most (50% or less) and non-obstructive. Due to some typical features of the symptoms however, she will require further ischemic testing. Will proceed with Lexiscan nuclear stress test tomorrow. Echocardiogram has also been ordered. Will need evaluation and treatment of GINA. Laila Terrazas Cardiology documented in this encounter ED Notes * Sridevi Dee, ROLF - 04/10/2017 9:22 PM EST Bed: 12 Expected date: 04/10/17 Expected time: 9:00 PM Means of arrival: EMS [facility] Comments: * Brian Castillo MD - 04/10/2017 9:18 PM EST Chief Complaint Patient presents with ??? Chest Pain CP/SOB- pt having chest pain and shortness of breath since 1900, pt was given asa 324, and 2 nitro sprays per EMS. Alert and orient. The patient is a 66-year-old female with a history of coronary artery disease who presents by squadfor evaluation of chest pain and shortness of breath. The symptoms started at 7:00 this evening. She describes having a sharp, left-sided chest pain associated with nausea, vomiting, lightheadedness and radiation the pain into her jaw and left arm. She states that the pain which she had with a myocardial infarction 2 years ago was more severe than this, but similar. She denies having cough or fever recently. She denies having diaphoresis. She was given aspirin and nitroglycerin times [address] hospital without improvement of her pain. Patient History Allergies Allergen Reactions ??? Compazine [Prochlorperazine Edisylate] ??? [place] ??? Pentazocine Hcl ??? Prochlorperazine Maleate ??? Talwin [Pentazocine Lactate] Home Medications: Prior to Admission medications Medication Sig Start Date End Date Taking? Authorizing Provider acetaminophen 325 mg Oral Tab Take 650 mg by mouth every 4 hours as needed for Pain. Provider, Historical ARIPiprazole (ABILIFY) 30 mg Oral Tablet Take 1 Tab by mouth daily. 02/23/17 Eric Gavin MD atorvastatin (LIPITOR) 20 mg Oral Tablet [...] 2 times daily (with meals). Provider, Historical ibuprofen (ADVIL;MOTRIN) 600 mg Oral Tablet Take 1 Tab by mouth every 6 hours as needed for Pain. 02/23/17 Eric Gavin MD insulin glargine (LANTUS) 100 unit/mL SubQ Solution Subcutaneous (Inject under the skin) 28 Units every evening. 02/23/17 Eric Gavin MD insulin syringe,safetyneedle 1 mL 30 gauge x 07/21 Misc Syringe 1 Syringe by [facility].(Non-Drug; Combo Route) route nightly. 08/04/16 Joanna Pierce MD isosorbide mononitrate (IMDUR) 60 mg Oral Tablet Sustained Release 24 hr TAKE ONE TABLET BY MOUTH ONCE DAILY 03/24/17 Joanna Pierce MD metFORMIN (GLUCOPHAGE) 500 mg [...] EVERY 12 HOURS 04/08/17 Joanna Pierce MD sertraline (ZOLOFT) 100 mg [...] Hypertension ??? RLS (restless legs syndrome) ??? Schizoaffective [...] and are negative. Physical Exam Blood pressure 108/45, pulse 60, temperature 97.6 ??F (36.4 ??C), temperature source Oral, resp. rate 18, height 5' 8.5 (1.74 m), weight 264 lb 3.2 oz (119.8 kg), SpO2 99 %. Physical Exam Constitutional: She appears well-developed and well-nourished. No distress. HENT: Head: Normocephalic. Mouth/Throat: Oropharynx is clear and moist. Eyes: Conjunctivae are normal. Pupils are equal, round, and reactive to light. Neck: Normal range of motion. Neck supple. Cardiovascular: Normal rate and regular rhythm. Exam reveals no gallop and no friction rub. No murmur heard. Pulmonary/Chest: Effort normal and breath sounds normal. Abdominal: Soft. She exhibits no distension. There is no tenderness. Musculoskeletal: She exhibits no edema. Neurological: She is alert. No cranial nerve deficit. Skin: Skin is warm and dry. No rash noted. Psychiatric: She has a normal mood and affect. Nursing note and vitals reviewed. Procedures Radiology/EKG/Labs: EKG shows a sinus rhythm with rate of 56. No acute ischemic changes compared to prior EKG per my reading. Results for orders placed or performed during the hospital encounter of 04/10/17 XR CHEST PA AND LATERAL Narrative PA AND LATERAL CHEST X-RAY, 04/10/2017 10:03 PM CLINICAL HISTORY: -CHEST PAIN COMPARISON: December 18, 2016 PROCEDURE COMMENTS: Frontal and lateral views of the chest. FINDINGS: Mild cardiomegaly unchanged. Lungs are clear, without effusion or pneumothorax. Impression Unchanged cardiomegaly. CBC WITH DIFF Result Value Ref Range WBC 9.4 4.0 - 11.0 x10(3)/mcL RBC 3.99 3.80 - 5.10 x10(6)/mcL Hgb 12.1 12.0 - 15.6 gm/dL Hct 36.0 35.7 - 45.9 % MCV 90.2 82.5 - 99.8 fL MCH 30.3 27.0 - 34.3 pg MCHC 33.6 32.1 - 35.3 gm/dL RDW 14.0 11.5 - 15.0 % Platelet 223 144 - 423 x10(3)/mcL MPV 9.5 6.8 - 10.8 fL Neut Percent 73.1 % Lymph Percent 18.2 % [place] Percent 4.9 % Eos Percent 3.2 % Baso Percent 0.6 % Neut # 6.9 1.8 - 7.7 x10(3)/mcL Lymph # 1.7 0.6 - 4.8 x10(3)/mcL [place] # 0.5 0.0 - 1.3 x10(3)/mcL Eos# 0.3 0.0 - 0.5 x10(3)/mcL Baso # 0.1 0.0 - 0.2 x10(3)/mcL BASIC METABOLIC PANEL Result Value Ref Range Sodium 142 136 - 145 mmol/L Potassium 4.3 3.5 - 5.0 mmol/L Chloride 99 98 - 107 mmol/L Total CO2 29 22 - 29 mmol/L Anion Gap 14 7 - 16 mmol/L Calcium 9.2 8.8 - 10.2 mg/dL Glucose Lvl 135 (H) 82 - 100 mg/dL BUN 20 8 - 23 mg/dL Creatinine 1.32 (H) 0.51 - 1.30 mg/dL GFR Afr Am 49 mL/min/1.73 m2 GFR Non Afr Am 42 mL/min/1.73 m2 TROPONIN-T Result Value Ref Range Troponin-T <0.01 <0.01 ng/mL Narrative Values > or = 0.01 ng/mL have been shown to have prognostic value. TROPONIN-T Result Value Ref Range Troponin-T <0.01 <0.01 ng/mL Narrative Values > or = 0.01 ng/mL have been shown to have prognostic value. EK EKG 12 LEAD Narrative NOTICE: Preliminary [...] radiology studies reviewed The patient presents with chest pain for 2.5 hours. She has history of coronary artery disease, buther initial EKG is normal. She requested something for pain and was given [place] 2 tablets by mouth. The patient was placed on nitroglycerin paste. She'll be admitted to rule out a cardiac etiology for her pain. I spoke with Anu Ayon. Admission. ED Clinical Impression: 1. Acute chest pain Critical Care time Condition at Discharge/Transfer from Department: Stable This chart was completed using voice recognition technology and may contain unintended errors Brian Castillo MD 04/11/17 0227 documented in this encounter Miscellaneous Notes * Plan of Care - Elvis Singh RN - 04/13/2017 1:42 PM EST Problem: Individualized Patient Preference/Goals - (ALWAYS ADD TO CARE PLANS) (always add to care plan) Goal: What is most important for you today? ANSWER DAILY This goal needs to be ANSWER DAILY - DO NOT COMPLETE Outcome: Progressing To get some sleep. Problem: Safety: Fall Risk Goal: Patient will remain free of falls and injury Outcome: Progressing Pt remained free from fall. BA on. Educated gerontological nurse practitioner light. Non skid foot wear on. Problem: Pain Management Goal: The patient's stated pain goal will be reached and maintained. The patient's stated pain goal will be reached and maintained Outcome: Progressing Pt given percocet. Problem: Knowledge Deficit Related to Disease Process/Treatment Goal: Patient/family will be knowledgeable of disease process and treatment Outcome: Progressing Patient educated on plan of care. Problem: Assess for New Problems - (ALWAYS ADD TO CARE PLAN) Assess patient for any new problem(s) to [...] with added problems when problem is identified Below is a list of the more [...] Nutrition imbalance [91] Restraints [94] Outcome: Progressing No new problems identified. * Utilization Review Notes - Camille Mcknight RN - 04/13/2017 8:32 AM EST continued stay review, pt remains on tele, Acute chest pain - negative troponins, no acute EKG findings. CXR clear. Cardiology consulted due to h/o CAD. Stress test ordered pt to return home at discharge if testing negative, patient care following for any discharge needs. * Utilization Review Notes - Camille Mcknight RN - 04/12/2017 11:00 AM EST continued stay review, pt remains on tele, Per MD - Trop Neg x 3, EKG w/ old inferior AL. Nonspecific ST changes. Atypical but has known CAD and risk factors. Will proceed with Gabby Nuc, Continue ranexa, Imdur. pt to return home at discharge if testing negative, patient care following for any discharge needs. * Plan of Care - Elvis Singh RN - 04/12/2017 10:58 AM EST Problem: Individualized Patient Preference/Goals - (ALWAYS ADD TO CARE PLANS) (always add to care plan) Goal: What is most important for you today? ANSWER DAILY This goal needs to be ANSWER DAILY - DO NOT COMPLETE Outcome: Progressing To be able to eat. Problem: Safety: Fall Risk Goal: Patient will remain free of falls and injury Outcome: Progressing Pt remained free from fall. BA on. Educated gerontological nurse practitioner light. Non skid foot wear on. Problem: Pain Management Goal: The patient's stated pain goal will be reached and maintained. The patient's stated pain goal will be reached and maintained Outcome: Progressing Pt getting IV morphine for chest pain. Problem: Knowledge Deficit Related to Disease Process/Treatment Goal: Patient/family will be knowledgeable of disease process and treatment Outcome: Progressing Patient educated on plan of care. Problem: Assess for New Problems - (ALWAYS ADD TO CARE PLAN) Assess patient for any new problem(s) to [...] with added problems when problem is identified Below is a list of the more [...] Nutrition imbalance [91] Restraints [94] Outcome: Progressing No new problems identified. * Plan of Care - Kike Burgos RN - 04/11/2017 2:50 PM EST Problem: Safety: Fall Risk Goal: Patient will remain free of falls and injury Outcome: Progressing Pt free of falls Problem: Pain Management Goal: The patient's stated pain goal will be reached and maintained. The patient's stated pain goal will be reached and maintained Outcome: Progressing Pts pain controlled with prn pain meds Problem: Knowledge Deficit Related to Disease Process/Treatment Goal: Patient/family will be knowledgeable of disease process and treatment Outcome: Progressing Pt updated on POC including poss d/c tomorrow * Plan of Care - Kelly Sung MSW - 04/11/2017 11:09 AM EST Problem: Disposition/Transition of Care Goal: Patient will have a plan for disposition or transition to next level of care Outcome: Completed Date Met: 04/11/17 CC to follow for discharge planning * Utilization Review Notes - Katheryn Bro RN - 04/11/2017 8:55 AM EST ADMIT PER ED TO TCU FOR ACUTE CHEST PAIN. OBV [id number] 2/3: PT PRESENTING BY SQUAD FOR CHEST PAIN AND SOB SINCE 7PM. ASSOCIATED NAUSEA, VOMITING, LIGHTHEADEDNESS AND RADIATION INTO JAW AND LEFT ARM. HX OF MYOCARDIAL INFARCTION 2 YEARS AGO. ADMIT TO R/O CARDIAC ETIOLOGY. * Plan of Care - Estrellita Simmons RN - 04/11/2017 6:55 AM EST Problem: Safety: Fall Risk Goal: Patient will remain free of falls and injury Outcome: Progressing Bed alarm is on. Pt wears non-skid socks to the bathroom and waits for assistance to use the bathroom. documented in this encounter Plan of Treatment [...] Date/Time Associated Diagnosis Comments SCANNED RHYTHM STRIPS 04/16/2017 11:12 AM EST GLUCOSE METER POC Routine 04/13/2017 4:50 PM EST EXTRA SPECIMENS (NON-BLOOD) Routine 04/13/2017 4:30 PM EST EXTRA YELLOW URINE Routine 04/13/2017 4:30 PM EST URINALYSIS Routine 04/13/2017 3:39 PM EST GLUCOSE METER POC Routine 04/13/2017 11:51 AM EST NM MYOCARDIAL PERFUSION SPECT STRESS AND REST EMMY 04/13/2017 11:33 AM EST PLATELET COUNT Timed 04/13/2017 9:48 AM EST GLUCOSE METER POC Routine 04/13/2017 7:44 AM EST SCANNED RHYTHM STRIPS 04/13/2017 2:43 AM EST GLUCOSE METER POC Routine 04/12/2017 9:12 PM EST GLUCOSE METER POC Routine 04/12/2017 5:19 PM EST SCANNED RADIOLOGY REPORT 04/12/2017 3:33 PM EST GLUCOSE METER POC Routine 04/12/2017 12:[address] STRESS TEST LEXISCAN Routine 04/12/2017 11:05 AM EST EC ECHOCARDIOGRAM COMPLETE W DOPPLER AND COLOR FLOW MAPPING Routine 04/12/2017 10:34 AM EST GLUCOSE METER POC Routine 04/12/2017 8:02 AM EST SCANNED RHYTHM STRIPS 04/12/2017 2:40 AM EST GLUCOSE METER POC Routine 04/11/2017 9:44 PM EST GLUCOSE METER POC Routine 04/11/2017 4:59 PM EST GLUCOSE METER POC Routine 04/11/2017 12:22 PM EST PLATELET COUNT Timed 04/11/2017 9:57 AM EST IP CONSULT TO CARDIOLOGY Routine 04/11/2017 9:42 AM EST Procedure Note - Laila Terrazas MD - 04/11/2017 10:44 AM ESTThis note is in progress. CARDIOLOGY CONSULT Faby Palm Today's Date: 04/11/2017 Date of Admission: 04/10/2017 Primary Care Provider: Sharee Segovia ARNP Forest[employer] Consultant: Jaycob Chief Complaint: CP Reason for consult CP Referring MD: Dr Zepeda HPI: Faby Palm is a 66 yo female presents with CP She has a PMHX of ASHD ,AF s/p ablation , chronic diastolic CHF, CKDpresents with CP assoc with SOB She describes a sharp left sided pain assoc with jaw and arm pain She states the pain was better but not gone after NTG--similarpresentation in 12/22 that lead to cath which showed 60% LAD disease and50% ostial RCA She also relays a history of 40 pound wt gain over the last 3 months butwt seems similar to 12/22 wt She has a 2 pillow orthopnea and lower extremity edema for the last fewweeks +abdominal distension + snoring ROS: Denies: Constitutional: fever, chills ENT: headaches, vertigo Cardiovascular: palpitations, lightheaded, syncope Pulmonary: cough, sputum production Gastrointestinal: abdominal pain, nausea, vomiting Genitourinary: change in bladder habits Musculoskeletal: weakness, joint complaints Integumentary: rash Endocrine: fatigue Hematologic/Lymphatic: abnormal bruising Allergic/Immunologic: hives Complains of: Chest pain /PND/orthopnea Allergies Allergen Reactions ? ? Compazine [Prochlorperazine Edisylate] ? ? [place]dale ? ? Pentazocine Hcl ? ? Prochlorperazine Maleate ? ? Talwin [Pentazocine Lactate] Prior to Admission Medications Prescriptions Prior to Admission Medication Sig Dispense Refill Last Dose ? ? acetaminophen 325 mg Oral Tab Take 650 mg by mouth every 4 hours asneeded for Pain. 04/09/2017 at 1630 ? ? ARIPiprazole (ABILIFY) 30 mg Oral Tablet Take 1 Tab by mouth daily. 30Tab 0 04/10/2017 at 0900 ? ? atorvastatin (LIPITOR) 20 mg Oral Tablet TAKE ONE TABLET BY MOUTHNIGHTLY 30 Tab 1 04/10/2017 at 0900 ? ? ferrous sulfate 325 mg (65 mg iron) Oral Tablet Take 1 Tab by mouth 2times daily (with meals). 60 Tab 5 04/10/2017 at 1500 ? ? fUROsemide (LASIX) 40 mg Oral Tablet Take 1 Tab by mouth daily. 30 Tab 27/05/2017 at 0900 ? ? glipiZIDE (GLUCOTROL) 10 mg Oral Tablet Take 10 mg by mouth 2 timesdaily (with meals). 04/10/2017 at 1730 ? ? ibuprofen (ADVIL;MOTRIN) 600 mg Oral Tablet Take 1 Tab by mouth every 6hours as needed for Pain. 60 Tab 0 04/10/2017 at 1730 ? ? insulin glargine (LANTUS) 100 unit/mL SubQ Solution Subcutaneous (Injectunder the skin) 28 Units every evening. 10 mL 12 04/10/2017 at 2000 ? ? isosorbide mononitrate (IMDUR) 60 mg Oral Tablet Sustained Release 24 hrTAKE ONE TABLET BY MOUTH ONCE DAILY 30 Tab 1 04/10/2017 at 0900 ? ? metFORMIN (GLUCOPHAGE) 500 mg Oral Tablet Take 500 mg by mouth 2 timesdaily. 04/10/2017 at 1730 ? ? metoprolol (LOPRESSOR) 50 mg Oral Tablet TAKE 1 TABLET BY MOUTH 2 TIMESDAILY 60 Tab 2 04/10/2017 at 1730 ? ? NIFEdipine (PROCARDIA XL) 90 mg Oral Tablet Extended Rel 24 hr Take 1Tab by mouth daily. 30 Tab 1 04/10/2017 at 0900 ? ? nitroGLYCERIN (NITROSTAT) 0.4 mg SL Tablet, Sublingual Place 1 Tab underthe tongue every 5 minutes as needed for Chest pain. 20 Tab 2 04/10/2017 atUnknown time ? ? pantoprazole (PROTONIX) 40 mg Oral Tablet, Delayed Release (E.C.) TAKEONE TABLET BY MOUTH ONCE DAILY 30 Tab 6 04/10/2017 at 0900 ? ? RANEXA 1,000 mg Oral Tablet Sustained Release 12 hr TAKE ONE TABLET BYMOUTH EVERY 12 HOURS 60 Tab 0 04/10/2017 at 0900 ? ? sertraline (ZOLOFT) 100 mg Oral Tablet Take 200 mg by mouth daily.Reported on 08/12/2016 04/10/2017 at 0900 ? ? insulin syringe,safetyneedle 1 mL 30 gauge x 5/16 Misc Syringe 1Syringe by Misc.(Non-Drug; Combo Route) route nightly. 30 Syringe 1Unknown at Unknown time Past Medical History: Past Medical History: Diagnosis Date ? ? Atrial flutter (HCC) EPS, AFL Ablation on 12/31/[address] Tee ? ? CHF (congestive heart failure) (HCC) ? ? COPD (chronic obstructive pulmonary disease) (HCC) ? ? DDD (degenerative disc disease) ? ? Diabetes mellitus (HCC) ? ? Hypertension ? ? AL (myocardial infarction) ? ? RLS (restless legs syndrome) ? ? Schizoaffective disorder, depressive type (HCC) 02/19/2017 ? ? Stroke (HCC) 2010 left side affected ? ? Suicide attempt ? ? Urinary incontinence ? ? Yeast [...] Labs: Lab Results Component Value Date HGB 12.1 04/10/2017 HCT 36.0 04/10/2017 PLT 199 04/11/2017 NA 142 04/10/2017 K 4.3 04/10/2017 CREATININE 1.32 (H) 04/10/2017 BUN 20 04/10/2017 TSH 5.200 (H) 02/20/2017 INR 1.09 11/10/2016 Vitals: Vitals: 04/10/17 2353 04/11/17 0345 04/11/17 0347 04/11/17 0903 BP: 133/63 120/59 BP Location: Left arm Left arm Patient Position: Sitting Semi Fowlers Pulse: 61 66 Resp: 14 16 Temp: 97.2 ??F (36.2 ??C) 97.5 ??F (36.4 ??C) TempSrc: Oral Oral SpO2: 95% 99% Weight: 249 lb 2 oz (113 kg) Height: 5' 8.5 (1.74 m) Body mass index is 37.33 kg/m??. TELEMETRY: SR-SB Physical Exam: GEN: Alert, pleasant and oriented x3/ pt snoring nad propped on 3 pillowswhen I arrived I room HEENT: Sclerae anicteric. No xanthelasmas. EOM's intact. NECK: Supple. Carotids without bruits. +JVD LUNGS: coarse BS HEART: RRR, no murmur, gallop, or rub. ABD: soft, nontender, positive bowel sounds EXT: 1 + edema, NEURO: no obvious focal abnormalities EKG: NSR , q waves in septal and inferior leads --similar to previous Echo 07/31/16: EF 55%, RVSP 29 mmHg Assessment: Chest pain -typical features -Trop neg x 3 -EKG NSR no acute ischemic changes changes ASHD -[facility] 10/22 -mid LAD 50-60%,ostial RCA 50% -on statin,AUBRIE,BB,ranexa Acute on chronic CHF -EF 55% on 07/22 echo -? Overloaded causing CP -right sided -probable untx GINA -CXR-cardiomegaly PAFL -hx of flutter ablation 2015 -remains in SR -TEPNF-fkcl-3 -off AC d/t maintain SR HTN DM2 Obesity H/o CVA Mood disorder CKD Plan: -no evidence of ACS (trop negative and EKG stable ) --LHC in 10/22 withmoderate disease of LAD (60%) and RCA (50%) --best treated medically --hxsupports some exacerbation of diastolic dysfxn and mild overload--deferfurther ischemic evaluation to Dr Terrazas -strict I and O's/daily wts/check BNP/check echo -add asa -consider outpt sleep study Further input to follow-up from Dr. Nini Coello PA-C 04/11/2017 Patient seen and examined independently. Labs, vitals, and other pertinent information reviewed. Reviewed MLP note including Assessment and Plan above. Personally reviewed past medical history, social and family histories. In addition: HPI: 66 y/o WF with h/o moderate non-obstructive CAD presented with suddenepisode of sharp pain in left side of chest and jaw. Pain random and notexertional. No associated sx of N/V/diaphoresis. EKG is non-ischemic and troponin's are negative. ROS: As above Physical Exam: Gen: A+O. NAD Neck: No JVD CV: RRR no murmur or Gallops Lungs: Clear BL Ext: +1 LE edema Plan: No objective evidence of ischemia. I personally reviewed [facility] images from October 2016. LAD and RCA lesionsappear to be moderate at most (50% or less) and non-obstructive. Due to some typical features of the symptoms however, she will requirefurther ischemic testing. Will proceed with Lexiscan nuclear stress test tomorrow. Echocardiogram has also been ordered. Will need evaluation and treatment of GINA. Laila Terrazas Cardiology GLUCOSE METER POC Routine 04/11/2017 9:27 AM EST TROPONIN-T Timed 04/11/2017 3:38 AM EST NT PROBNP Routine 04/11/2017 3:38 AM EST EK EKG 12 LEAD Routine 04/11/2017 12:05 AM EST TROPONIN-T STAT 04/10/2017 11:58 PM EST XR CHEST PA AND LATERAL EMMY 04/10/2017 10:03 PM EST TROPONIN-T STAT 04/10/2017 9:49 PM EST CBC WITH DIFF STAT 04/10/2017 9:49 PM EST BASIC METABOLIC PANEL STAT 04/10/2017 9:49 PM EST EK EKG 12 LEAD STAT 04/10/2017 9:19 PM EST SALINE LOCK IV STAT 04/10/2017 9:19 PM EST documented in this encounter Results * SCANNED RHYTHM STRIPS (04/16/2017 11:12 AM EST) Anatomical Region Laterality Modality Other 04/16/2017 11:1 2 AM EST us Unknown Unknown IMG ECG ORDERABLES Final Result * (ABNORMAL) GLUCOSE METER POC (04/13/2017 4:50 PM EST) [facility] Glucose Meter POC 108(H) 70 - 100 mg/dL 04/13/2017 4:51 PM EST [facility] Sample Type Capillary 04/13/2017 4:51 PM EST [facility] Patient Status Non-Critical Patient 04/13/2017 4:51 PM EST [facility] Blood BLOOD SPECIMEN / Unknown 04/13/2017 4:50 PM EST 04/13/2017 4:51 PM EST us Sherif Bartholomew MD POINT OF CARE TEST ORDERABLE S Final Result Performing Organization Address [facility]/ZIP Co de Phone Number [facility] [address] [place] [address] * EXTRA YELLOW URINE (04/13/2017 4:30 PM EST) Urine 04/13/2017 4:30 PM EST 04/13/2017 4:30 PM EST us Sherif Bartholomew MD URINE ORDERABLES Final Resul t Performing Organization Address [facility] Co de Phone Number [facility] [address] [phone] * (ABNORMAL) URINALYSIS (04/13/2017 3:39 PM EST) UA Color Yellow 04/13/2017 4:[address] [facility] UA Appear Cloudy(A) Clear 04/13/2017 4:[address] [facility] UA Glucose Negative Negative mg/dL 04/13/2017 4:[address] [facility] UA Ketones Negative Negative mg/dL 04/13/2017 4:[address] [facility] UA Blood Trace-Intac t(A) Negative 04/13/2017 4:[address] [facility] UA pH 6.0 5.0 - 8.0 pH 04/13/2017 4:[address] [facility] UA Protein Trace(A) Negative mg/dL 04/13/2017 4:47 PM EST [facility] UA Urobilinogen 0.2 <=1 E.U./dL 04/13/19 18 4:[address] [facility] UA Nitrite Negative Negative 04/13/2017 4:[address] [facility] UA Leuk Est Large(A) Negative 04/13/2017 4:47 PM EST [facility] UA Spec Grav 1.020 1.001 - 1.035 no units 04/13/2017 4:47 PM EST [facility] Comment: Reference range valid for random specimens only. UA WBC >100(H) 0 - 4 /HPF 04/13/2017 4:47 PM EST [facility] UA RBC 4(H) 0 - 3 /HPF 04/13/2017 4:47 PM EST [facility] UA Squam Epi 4+ /LPF 04/13/2017 4:47 PM EST [facility] UA Bacteria 2+(A) Negative /HPF 04/13/2017 4:47 PM EST [facility] Urine URINE SPECIMEN COLLECTION, CLEAN CATCH / Unknown 04/13/2017 3:39 PM EST 04/13/2017 4:28 PM EST us Ollie Davis APRN URINE ORDERABLES Final Result Performing Organization Address City/[facility]/ZIP Co de Phone Number [facility] [address] [place] [address] * (ABNORMAL) GLUCOSE METER POC (04/13/2017 11:51 AM EST) [facility] Glucose Meter POC 101(H) 70 - 100 mg/dL 04/13/2017 11:51 AM EST [facility] Sample Type Capillary 04/13/2017 11:51 AM EST [facility] Patient Status Non-Critical Patient 04/13/2017 11:51 AM EST [facility] Blood BLOOD SPECIMEN / Unknown 04/13/2017 11:51 AM EST 04/13/2017 11:51 AM EST us Sherif Bartholomew MD POINT OF CARE TEST ORDERABLE S Final Result Performing Organization Address City/[facility]/ZIP Co de Phone Number [facility] [address] [place] [address] * NM MYOCARDIAL PERFUSION SPECT STRESS AND REST (04/13/2017 11:33 AM EST) Anatomical Region Laterality Modality Nuclear Medicine 04/12/2017 11:1 5 AM EST Impressions 04/13/2017 4:55 PM EST IMPRESSIONS No evidence of myocardial ischemia or prior myocardial infarction. ?? Normal left ventricular size and function. ?? Narrative Procedure Note Tr Warren MD - 04/13/2017 IMPRESSION IMPRESSIONS No evidence of myocardial ischemia or prior myocardial infarction. Normal left ventricular size and function. us Ollie Davis TRAVEL RN OR IMG NM CARDIAC ORDERABLES Final Result * PLATELET COUNT (04/13/2017 9:48 AM EST) Pathologist [facility] Platelet 189 144 - 423 x10(3)/mcL 04/13/2017 10:07 AM EST [facility] MPV 9.4 6.8 - 10.8 fL 04/13/2017 10:07 AM EST [facility] Blood VENOUS BLOOD / Unknown Capillary / Unknown 04/13/2017 9:48 AM EST 04/13/2017 10:04 AM EST us Aftab Crawford MD HEMATOLOGY ORDERABLES Final R esult [facility] [address] [phone] * GLUCOSE METER POC (04/13/2017 7:44 AM EST) [facility] Glucose Meter POC 76 70 - 100 mg/dL 04/13/2017 7:45 AM EST [facility] Sample Type Capillary 04/13/2017 7:45 AM EST [facility] Patient Status Non-Critical Patient 04/13/2017 7:45 AM EST [facility] Blood BLOOD SPECIMEN / Unknown 04/13/2017 7:44 AM EST 04/13/2017 7:45 AM EST Sherif Bartholomew MD POINT OF CARE TEST ORDERABLE S Final Result Performing Organization Address City/[facility]/ZIP Co de Phone Number [facility] [address] [place] [address] * SCANNED RHYTHM STRIPS (04/13/2017 2:43 AM EST) Anatomical Region Laterality Modality Other 04/13/2017 2:43 AM EST us Unknown Unknown IMG ECG ORDERABLES Final Result * (ABNORMAL) GLUCOSE METER POC (04/12/2017 9:12 PM EST) Glucose Meter POC 114(H) 70 - 100 mg/dL 04/12/2017 9:13 PM EST [facility] Sample Type Capillary 04/12/2017 9:13 PM EST [facility] Patient Status Non-Critical Patient 04/12/2017 9:13 PM EST [facility] Blood BLOOD SPECIMEN / Unknown 04/12/2017 9:12 PM EST 04/12/2017 9:13 PM EST us Aftab Crawford MD POINT OF CARE TEST ORDERABLES Final Result Performing Organization Address [facility]/[place] [address] * (ABNORMAL) GLUCOSE METER POC (04/12/2017 5:19 PM EST) Glucose Meter POC 137(H) 70 - 100 mg/dL 04/12/2017 5:20 PM EST [facility] Sample Type Capillary 04/12/2017 5:20 PM EST [facility] Patient Status Non-Critical Patient 04/12/2017 5:20 PM EST [facility] Blood BLOOD SPECIMEN / Unknown 04/12/2017 5:19 PM EST 04/12/2017 5:20 PM EST us Aftab Crawford MD POINT OF CARE TEST ORDERABLES Final Result Performing Organization Address City/[facility]/[place] [address] * SCANNED RADIOLOGY REPORT (04/12/2017 3:33 PM EST) Anatomical Region Laterality Modality Other 04/12/2017 3:33 PM EST us Unknown Unknown IMG DIAGNOSTIC IMAGING ORDERABLE S Final Result * (ABNORMAL) GLUCOSE METER POC (04/12/2017 12:33 PM EST) Glucose Meter POC 129(H) 70 - 100 mg/dL 04/12/2017 12:34 PM EST [facility] Sample Type Capillary 04/12/2017 12:34 PM EST [facility] Patient Status Non-Critical Patient 04/12/2017 12:34 PM EST [facility] Blood BLOOD SPECIMEN / Unknown 04/12/2017 12:33 PM EST 04/12/2017 12:34 PM EST us Aftab Crawford MD POINT OF CARE TEST ORDERABLES Final Result Performing Organization Address City/State/[facility] Co de Phone Number [facility] [address] [place] [address] * ST STRESS TEST LEXISCAN (04/12/2017 11:05 AM EST) Anatomical Region Laterality Modality Cardiac Stress T esting 04/12/2017 10:3 7 AM EST Impressions 04/12/2017 4:30 PM EST ? Exercise ECG Report ? [facility] ? Interpretive Statements ? Stress Test Lexiscan Reason for Exam: Chest pain Resting HR: 62 ?? Peak HR: 77 Resting B/P 124/82 ?? PeaK B/P 124/82 1. Lexiscan 0.4 mg was given IV push at 30 seconds into protocol. 2. Lexiscan injection was done ___with _x__without low level exercise. 3. Termination of test due to protocol completion _x__ yes ___ no. 4. Symptoms: none 5. Aminophylline given _x_ no ___ yes 6. Myoview scan report pending. PHYSICIAN SUMMARY BASELINE ECG: Normal sinus rhythm. Low voltage. Possible inferior and anteroseptal infarctions. ARRHYTHMIAS: No stress induced arrhythmias were noted. ELECTROCARDIOGRAPHIC RESPONSE TO STRESS: There are no diagnostic stress induced electrocardiographic changes. Electronically Signed On 04-12-2017 16:30:26 EST by Tr Warren MD Narrative Procedure Note Tr Warren MD - 04/12/2017 IMPRESSION Exercise ECG Report [facility] Interpretive Statements Stress Test Lexiscan Reason for Exam: Chest pain Resting HR: 62 Peak HR: 77 Resting B/P 124/82 PeaK B/P 124/82 1. Lexiscan 0.4 mg was given IV push at 30 seconds into protocol. 2. Lexiscan injection was done ___with _x__without low level exercise. 3. Termination of test due to protocol completion _x__ yes ___ no. 4. Symptoms: none 5. Aminophylline given _x_ no ___ yes 6. Myoview scan report pending. PHYSICIAN SUMMARY BASELINE ECG: Normal sinus rhythm. Low voltage. Possible inferior and anteroseptal infarctions. ARRHYTHMIAS: No stress induced arrhythmias were noted. ELECTROCARDIOGRAPHIC RESPONSE TO STRESS: There are no diagnostic stress induced electrocardiographic changes. Electronically Signed On 04-12-2017 16:30:26 EST by Tr Warren MD Ollie Davis APRN IM STRESS ORDERABLES Final Res ult * EC ECHOCARDIOGRAM COMPLETE W DOPPLER AND COLOR FLOW MAPPING (04/12/2017 10:34 AM EST) Ejection Fraction 60-65 % [place] Anatomical Region Laterality Modality Electrocardiogra phy 04/12/2017 9:59 AM EST Impressions 04/12/2017 5:23 PM EST ??CONCLUSIONS ??Left Ventricular ejection fraction is estimated at 60-65% ??Normal global left ventricular size, wall thickness, systolic function with no obvious regional wall motion abnormalities. ?Abnormal tissue doppler signal c/w impaired diastolic function. ?Mild right ventricular dilatation. ?? Narrative Procedure Note Tr Warren MD - 04/12/2017 IMPRESSION CONCLUSIONS Left Ventricular ejection fraction is estimated at 60-65% Normal global left ventricular size, wall thickness, systolic functionwith no obvious regional wall motion abnormalities. Abnormal tissue doppler signal c/w impaired diastolic function. Mild right ventricular dilatation. us Elvis Coello PA-C IMG ECHO ORDERABLES Final Resu lt * (ABNORMAL) GLUCOSE METER POC (04/12/2017 8:02 AM EST) Glucose Meter POC 158(H) 70 - 100 mg/dL 04/12/2017 8:03 AM EST [facility] Sample Type Capillary 04/12/2017 8:03 AM EST [facility] Patient Status Non-Critical Patient 04/12/2017 8:03 AM EST [facility] Blood BLOOD SPECIMEN / Unknown 04/12/2017 8:02 AM EST 04/12/2017 8:03 AM EST us Aftab Crawford MD POINT OF CARE TEST ORDERABLES Final Result Performing Organization Address City/State/[facility] Co de Phone Number [facility] [address] [place] [address] * SCANNED RHYTHM STRIPS (04/12/2017 2:40 AM EST) Anatomical Region Laterality Modality Other 04/12/2017 2:40 AM EST us Unknown Unknown IMG ECG ORDERABLES Final Result * (ABNORMAL) GLUCOSE METER POC (04/11/2017 9:44 PM EST) Glucose Meter POC 208(H) 70 - 100 mg/dL 04/11/2017 9:46 PM EST [facility] Sample Type Capillary 04/11/2017 9:46 PM EST [facility] Patient Status Non-Critical Patient 04/11/2017 9:46 PM EST [facility] Blood BLOOD SPECIMEN / Unknown 04/11/2017 9:44 PM EST 04/11/2017 9:46 PM EST us Aftab Crawford MD POINT OF CARE TEST ORDERABLES Final Result [facility] [address] [place] [address] * GLUCOSE METER POC (04/11/2017 4:59 PM EST) Glucose Meter POC 90 70 - 100 mg/dL 04/11/2017 4:59 PM EST [facility] Sample Type Capillary 04/11/2017 4:59 PM EST [facility] Patient Status Non-Critical Patient 04/11/2017 4:59 PM EST [facility] Blood BLOOD SPECIMEN / Unknown 04/11/2017 4:59 PM EST 04/11/2017 4:59 PM EST us Aftab Crawford MD POINT OF CARE TEST ORDERABLES Final Result [facility] [address] [place] [address] * (ABNORMAL) GLUCOSE METER POC (04/11/2017 12:22 PM EST) Glucose Meter POC 195(H) 70 - 100 mg/dL 04/11/2017 12:23 PM EST [facility] Sample Type Capillary 04/11/2017 12:23 PM EST [facility] Patient Status Non-Critical Patient 04/11/2017 12:23 PM EST [facility] Blood BLOOD SPECIMEN / Unknown 04/11/2017 12:22 PM EST 04/11/2017 12:23 PM EST us Aftab Crawford MD POINT OF CARE TEST ORDERABLES Final Result Performing Organization Address City/[facility]/ZIP Co de Phone Number [facility] [address] [place] [address] * PLATELET COUNT (04/11/2017 9:57 AM EST) Pathologist [facility] Platelet 199 144 - 423 x10(3)/mcL 04/11/2017 10:39 AM EST [facility] MPV 9.6 6.8 - 10.8 fL 04/11/2017 10:39 AM EST [facility] Blood VENOUS BLOOD / Unknown Venipuncture / Unknown 04/11/2017 9:57 AM EST 04/11/2017 10:34 AM EST us Aftab Crawford MD HEMATOLOGY ORDERABLES Final R esult Performing Organization Address [facility] Co de Phone Number [facility] [address] [place] [address], [place] [phone] * (ABNORMAL) GLUCOSE METER POC (04/11/2017 9:27 AM EST) [facility] Glucose Meter POC 118(H) 70 - 100 mg/dL 04/11/2017 9:28 AM EST [facility] Sample Type Capillary 04/11/2017 9:28 AM EST [facility] Patient Status Non-Critical Patient 04/11/2017 9:28 AM EST [facility] Blood BLOOD SPECIMEN / Unknown 04/11/2017 9:27 AM EST 04/11/2017 9:28 AM EST us Aftab Crawford MD POINT OF CARE TEST ORDERABLES Final Result Performing Organization Address City/[facility]/ZIP Co de Phone Number [facility] [address] [place] [address] * (ABNORMAL) NT PROBNP (04/11/2017 3:38 AM EST) [facility] NT Pro-BNP 481(H) <=319 pg/mL 04/11/2017 12:02 PM EST [facility] Blood VENOUS BLOOD / Unknown Venipuncture / Unknown 04/11/2017 3:38 AM EST 04/11/2017 3:41 AM EST Narrative [facility] - 04/11/2017 12:02 PM EST An NT pro-BNP level less than 300 pg/mL in any patient, regardless of age, effectively rules out acute CHF with a 99% negative predictive value. us Elvis Coello PA-C CHEMISTRY ORDERABLES Final Res ult Performing Organization Address [facility] Phone Number [facility] [address] [address] * TROPONIN-T (04/11/2017 3:38 AM EST) Troponin-T <0.01 <0.01 ng/mL 04/11/2017 4:09 AM EST [facility] Blood VENOUS BLOOD / Unknown Venipuncture / Unknown 04/11/2017 3:38 AM EST 04/11/2017 3:41 AM EST Narrative [facility] - 04/11/2017 4:09 AM EST Values > or = 0.01 ng/mL have been shown to have prognostic value. us Brian Castillo MD CHEMISTRY ORDERABLES Final Resu lt Performing Organization Address [facility] Phone Number [facility] [address] [address] * EK EKG 12 LEAD (04/11/2017 12:05 AM EST) Anatomical Region Laterality Modality Electrocardiogra phy 04/11/2017 7:27 AM EST Impressions 04/11/2017 3:28 PM EST ? [facility] Interpretive Statements ? SINUS RHYTHM LOW QRS VOLTAGE IN PRECORDIAL LEADS SEPTAL MYOCARDIAL INFARCTION, PROBABLY OLD INFERIOR MYOCARDIAL INFARCTION, PROBABLY OLD WARNING: DATA QUALITY MAY AFFECT INTERPRETATION Electronically Signed On 04-11-2017 15:28:34 EST by Abundio Marin MD Narrative Procedure Note Abundio Marin MD - 04/11/2017 IMPRESSION Stationary ECG Study [facility] Interpretive Statements SINUS RHYTHM LOW QRS VOLTAGE IN PRECORDIAL LEADS SEPTAL MYOCARDIAL INFARCTION, PROBABLY OLD INFERIOR MYOCARDIAL INFARCTION, PROBABLY OLD WARNING: DATA QUALITY MAY AFFECT INTERPRETATION Electronically Signed On 04-11-2017 15:28:34 EST by Abundio Marin MD us Brian Castillo MD IMG ECG ORDERABLES Final Result * TROPONIN-T (04/10/2017 11:58 PM EST) Troponin-T <0.01 <0.01 ng/mL 04/11/2017 12:28 AM EST [facility] Blood VENOUS BLOOD / Unknown Venipuncture / Unknown 04/10/2017 11:58 PM EST 04/11/2017 12:10 AM EST Narrative [facility] - 04/11/2017 12:28 AM EST Values > or = 0.01 ng/mL have been shown to have prognostic value. us Brian Castillo MD CHEMISTRY ORDERABLES Final Resu lt [facility] [address] [facility] [place] [address] * XR CHEST PA AND LATERAL (04/10/2017 10:03 PM EST) Anatomical Region Laterality Modality Chest Radiographic Whit ging 04/10/2017 10:0 3 PM EST Impressions 04/10/2017 10:08 PM EST Unchanged cardiomegaly. Narrative 04/10/2017 10:08 PM EST PA AND LATERAL CHEST X-RAY, ??04/10/2017 10:03 PM CLINICAL HISTORY: ??-CHEST PAIN COMPARISON: ??December 18, 2016 PROCEDURE COMMENTS: Frontal and lateral views of the chest. FINDINGS: Mild cardiomegaly unchanged. Lungs are clear, without effusion or pneumothorax. Procedure Note Juan Manuel Linares MD - 04/10/2017 PA AND LATERAL CHEST X-RAY, 04/10/2017 10:03 PM CLINICAL HISTORY: -CHEST PAIN COMPARISON: December 18, 2016 PROCEDURE COMMENTS: Frontal and lateral views of the chest. FINDINGS: Mild cardiomegaly unchanged. Lungs are clear, without effusion orpneumothorax. IMPRESSION: Unchanged cardiomegaly. Brian Castillo MD IMG DIAGNOSTIC IMAGING ORDERABL ES Final Result * TROPONIN-T (04/10/2017 9:49 PM EST) [facility] Troponin-T <0.01 <0.01 ng/mL 04/10/2017 10:[address] [facility] Blood VENOUS BLOOD / Unknown Venipuncture / Unknown 04/10/2017 9:49 PM EST 04/10/2017 9:[address] [facility] - 04/10/2017 10:11 PM EST Values > or = 0.01 ng/mL have been shown to have prognostic value. Brian Castillo MD CHEMISTRY ORDERABLES Final Resu lt [facility] [address] [place] [address] * (ABNORMAL) BASIC METABOLIC PANEL (04/10/2017 9:49 PM EST) [facility] Sodium 142 136 - 145 mmol/L 04/10/2017 10:09 PM [facility] Potassium 4.3 3.5 - 5.0 mmol/L 04/10/2017 10:09 PM [facility] Chloride 99 98 - 107 mmol/L 04/10/2017 10:09 PM [facility] Total CO2 29 22 - 29 mmol/L 04/10/2017 10:09 PM [facility] Anion Gap 14 7 - 16 mmol/L 04/10/2017 10:09 PM [facility] Calcium 9.2 8.8 - 10.2 mg/dL 04/10/2017 10:09 PM [facility] Glucose Lvl 135(H) 82 - 100 mg/dL 04/10/2017 10:09 PM [facility] BUN 20 8 - 23 mg/dL 04/10/2017 10:09 PM [facility] Creatinine 1.32(H) 0.51 - 1.30 mg/dL 04/10/2017 10:09 PM [facility] GFR Afr Am 49 mL/min/1.7 3 m2 04/10/2017 10:09 PM [facility] GFR Non Afr Am 42 mL/min/1.7 3 m2 04/10/2017 10:09 PM [facility] Comment: GFR Afr Am and GFR Non [...] VENOUS BLOOD / Unknown Venipuncture / Unknown 04/10/2017 9:49 PM EST 04/10/2017 9:51 PM EST Brian Castillo MD CHEMISTRY ORDERABLES Final Resu lt Performing Organization Address City/State/[facility] Co de Phone Number [facility] [address] [phone] * CBC WITH DIFF (04/10/2017 9:49 PM EST) WBC 9.4 4.0 - 11.0 x10(3)/mcL 04/10/2017 9:[address] [facility] RBC 3.99 3.80 - 5.10 x10(6)/mcL 04/10/2017 9:[address] [facility] Hgb 12.1 12.0 - 15.6 gm/dL 04/10/2017 9:[address] [facility] Hct 36.0 35.7 - 45.9 % 04/10/2017 9:[address] [facility] MCV 90.2 82.5 - 99.8 fL 04/10/2017 9:[address] [facility] MCH 30.3 27.0 - 34.3 pg 04/10/2017 9:[address] [facility] MCHC 33.6 32.1 - 35.3 gm/dL 04/10/2017 9:[address] [facility] RDW 14.0 11.5 - 15.0 % 04/10/2017 9:55 PM EST [facility] Platelet 223 144 - 423 x10(3)/[facility] 04/10/2017 9:55 PM EST [facility] MPV 9.5 6.8 - 10.8 fL 04/10/2017 9:55 PM EST [facility] Neut Percent 73.1 % 04/10/2017 9:55 PM EST [facility] Lymph Percent 18.2 % 04/10/2017 9:55 PM EST [facility] [place] Percent 4.9 % 04/10/2017 9:55 PM EST [facility] Eos Percent 3.2 % 04/10/2017 9:55 PM EST [facility] Baso Percent 0.6 % 04/10/2017 9:55 PM EST [facility] Neut # 6.9 1.8 - 7.7 x10(3)/[facility] 04/10/2017 9:55 PM EST [facility] Lymph # 1.7 0.6 - 4.8 x10(3)/[facility] 04/10/2017 9:55 PM EST [facility] [place] # 0.5 0.0 - 1.3 x10(3)/[facility] 04/10/2017 9:55 PM EST [facility] Eos# 0.3 0.0 - 0.5 x10(3)/[facility] 04/10/2017 9:55 PM EST [facility] Baso # 0.1 0.0 - 0.2 x10(3)/[facility] 04/10/2017 9:55 PM EST [facility] Blood VENOUS BLOOD / Unknown Venipuncture / Unknown 04/10/2017 9:49 PM EST 04/10/2017 9:51 PM EST us Brian Castillo MD HEMATOLOGY ORDERABLES Final Res ult [facility] [address] [place] [address] * EK EKG 12 LEAD (04/10/2017 9:19 PM EST) Anatomical Region Laterality Modality Electrocardiogra phy 04/10/2017 9:26 PM EST Impressions 04/11/2017 3:33 PM EST ? Stationary ECG Study ? [facility] ? Interpretive Statements ? SINUS BRADYCARDIA LOW QRS VOLTAGE IN PRECORDIAL LEADS INFERIOR MYOCARDIAL INFARCTION, PROBABLY OLD ANTEROSEPTAL MYOCARDIAL INFARCTION, PROBABLY OLD Electronically Signed On 04-11-2017 15:33:33 EST by Abundio Marin MD Narrative Procedure Note Abundio Marin MD - 04/11/2017 IMPRESSION Stationary ECG Study [facility] Interpretive Statements SINUS BRADYCARDIA LOW QRS VOLTAGE IN PRECORDIAL LEADS INFERIOR MYOCARDIAL INFARCTION, PROBABLY OLD ANTEROSEPTAL MYOCARDIAL INFARCTION, PROBABLY OLD Electronically Signed On 04-11-2017 15:33:33 EST by Abundio Marin MD us Brian Castillo MD IMG ECG ORDERABLES Final Result documented in this encounter Visit Diagnoses Diagnosis Acute chest pain- Primary Chest pain, unspecified Acute chest pain Chest pain, unspecified Chronic diastolic CHF (congestive heart failure) (HCC) Coronary artery disease involving [place] coronary artery of [place] heart with unstable angina pectoris (HCC) Essential hypertension Unspecified essential hypertension History of CVA (cerebrovascular accident) Transient ischemic attack (TIA), and cerebral infarction without residual deficits S/P ablation of atrial flutter Other postprocedural status Schizoaffective disorder, depressive type (HCC) Schizoaffective disorder, unspecified condition documented in this encounter Admitting Diagnoses Diagnosis Acute chest pain Chest pain, unspecified documented in this encounter Administered Medications Inactive Administered Medications - up to 1 most recent administrations Medication Order MAR Action Action Date Dose Rate Site acetaminophen (TYLENOL) suppository 650 mg 650 mg, Rectal, EVERY 4 HOURS PRN, Starting on Wed04/10/17 at 2341, Until Wed04/13/17 at 2202, Fever, Headaches, Maximum adult dose of acetaminophen is 4000 mg from all sources in 24 hours. acetaminophen (TYLENOL) tablet 650 mg 650 mg, Oral, EVERY 4 HOURS PRN, Starting on Wed04/10/17 at 2341, Until Wed04/13/17 at 2202, Fever, Headaches, Maximum adult dose of acetaminophen is 4000 mg from all sources in 24 hours. ARIPiprazole (ABILIFY) tablet 30 mg 30 mg, Oral, DAILY, First dose on Wed04/11/17 at 0900, Until Discontinued Given 04/13/2017 8:00 AM EST 30 mg aspirin chewable tablet 81 mg 81 mg, Oral, DAILY, First dose on Wed04/11/17 at 1315, Until Discontinued Given 04/13/2017 8:02 AM EST 81 mg atorvastatin (LIPITOR) tablet 20 mg 20 mg, Oral, NIGHTLY, First dose on Wed04/11/17 at 0145, Until Discontinued Given 04/12/2017 10:34 PM EST 20 mg dextrose 50 % solution 25 mL 25 mL, Intravenous, PRN, Starting on Wed04/11/17 at 1245, Until Wed04/13/17 at 2202, Low blood sugar, If FSBS less than 70 mg/dl and patient cannot take orally, Check FSBS every 30 minutes and repeat 25 mL of D50 IV push and notify physician if FSBS less than 70 mg/dL VESICANT ferrous sulfate tablet 325 mg 325 mg, Oral, 2 TIMES DAILY WITH MEALS, First dose on Wed04/11/17 at 0800, Until Discontinued Given 04/13/2017 5:48 PM EST 325 mg fUROsemide (LASix) tablet 40 mg 40 mg, Oral, DAILY, First dose on Wed04/11/17 at 0900, Until Discontinued Given 04/13/2017 8:01 AM EST 40 mg glipiZIDE (GLUCOTROL) tablet 10 mg 10 mg, Oral, 2 TIMES DAILY WITH MEALS, First dose on 04/11/17 at 0800, Until Discontinued Given 04/13/2017 5:48 PM EST 10 mg glucagon (human recombinant) (GLUCAGEN) injection 1 mg 1 mg, Intramuscular, PRN, Starting on Wed04/11/17 at 1245, Until Wed04/13/17 at 2202, Low blood sugar, If FSBS less than 70 mg/dl, patient cannot take orally and without IV access, If patient is without IV access, give Glucagon 1 mg Intramuscularly, insert IV and call physician. heparin, porcine (PF) injection 5,000 Units 5,000 Units, Subcutaneous, EVERY 8 HOURS SCHEDULED (3 times per day), First dose on 04/11/17 at 1400, Until Discontinued, Hold Heparin for platelet count less than 100,000 Given 04/13/2017 1:28 PM EST 5,000 Units Left Arm HYDROcodone-acetaminophen (NORCO) 5-325 mg per tablet 2 Tab 2 Tablet, Oral, ONCE, 1 dose, On 04/10/17 at 2145, Maximum adult dose of acetaminophen is 4000 mg from all sources in 24 hours. Given 04/10/2017 10:13 PM EST 2 Tablets insulin aspart (NovoLOG) injection 1-10 Units 1-10 Units, Subcutaneous, 4 TIMES DAILY WITH MEALS, First dose on 04/11/17 at 1800, Until Discontinued, Medium dose algorithm: [...] hours. Waste Sort Code = BKC Given 04/12/2017 6:05 PM EST 1 Units Left Arm insulin glargine (LANTUS) injection 28 Units 28 Units, Subcutaneous, EVERY EVENING (INSULIN), First dose on 04/11/17 at 1900, Until Discontinued, Do not mix with other insulins Waste Sort Code = BKC Given 04/12/2017 6:05 PM EST 28 Units Left Arm isosorbide mononitrate (IMDUR) CR tablet 60 mg 60 mg, Oral, DAILY, First dose on 04/11/17 at 0900, Until Discontinued Given 04/13/2017 8:02 AM EST 60 mg metFORMIN (GLUCOPHAGE) tablet 500 mg 500 mg, Oral, 2 TIMES DAILY, First dose on 04/11/17 at 0145, Until Discontinued, For procedures using IV iodinated contrast: hold metformin at the time of or prior to the procedure, and for 48 hours after. Inform MD Given 04/13/2017 8:00 AM EST 500 mg metoprolol (LOPRESSOR) tablet 50 mg 50 mg, Oral, 2 TIMES DAILY, First dose on 04/11/17 at 0145, Until Discontinued Given 04/13/2017 8:00 AM EST 50 mg morphine injection 4 mg 4 mg, Intravenous, EVERY 4 HOURS PRN, Starting on 04/11/17 at 0005, Until 04/12/17 at 1310, Pain Given 04/12/2017 5:28 AM EST 4 mg NIFEdipine (PROCARDIA XL) CR tablet 90 mg 90 mg, Oral, DAILY, First dose on 04/11/17 at 0900, Until Discontinued Given 04/13/2017 8:00 AM EST 90 mg nitroGLYCERIN (NITROGLYN) 2 % ointment 1 Inch 1 Inch, Topical, ONCE, 1 dose, On 04/10/17 at 2300, Wipe off old dose, apply to chest wall Patch Applied 04/10/2017 11:26 PM EST 1 Inch nitroGLYCERIN (NITROGLYN) 2 % ointment 1 Inch 1 Inch, Topical, EVERY 6 HOURS SCHEDULED (4 times per day), First dose on 2/4/18 at 0115, Until Discontinued, Wipe off old dose, apply to chest wall. Patch Applied 04/12/2017 5:20 AM EST 1 Inch Right Arm oxyCODONE-acetaminophen (PERCOCET) 5-325 mg per tablet 1-2 Tab 1-2 Tablet, Oral, EVERY 4 HOURS PRN, Starting on 04/12/17 at 1310, Until Wed04/13/17 at 2202, Pain, Maximum adult dose of acetaminophen is 4000 mg from all sources in 24 hours. Given 04/13/2017 4:11 PM EST 2 Tablets pantoprazole (PROTONIX) tablet 40 mg 40 mg, Oral, DAILY, First dose on Wed04/11/17 at 0900, Until Discontinued, Do not crush or chew Given 04/13/2017 8:00 AM EST 40 mg ranolazine (RANEXA) SR tablet 1,000 mg 1,000 mg, Oral, EVERY 12 HOURS SCHEDULED (2 times per day), First dose on Wed04/11/17 at 0145, Until Discontinued Given 04/13/2017 8:00 AM EST 1,000 mg regadenoson (LEXISCAN) injection 0.4 mg 0.4 mg, Intravenous, ONCE, 1 dose, On Wed04/12/17 at 1245, Echo Meds Given 04/12/2017 11:00 AM EST 0.4 mg sertraline (ZOLOFT) tablet 200 mg 200 mg, Oral, DAILY, First dose on Wed04/11/17 at 0900, Until Discontinued Given 04/13/2017 8:00 AM EST 200 mg sodium chloride 0.9% IV line flush 50 mL 50 mL, Intravenous, at 150-600 mL/hr, PRN, Starting on 04/10/17 at 2119, Until Wed04/13/17 at 2202, Line Care, Flush with a minimum of 20 mL after IVPB to insure complete administration of the dose. May use the saline infusion to back flush IVPB tubing as needed., Use this order to document priming and flushing IV line after medication administration. sodium chloride 0.9% syringe 5 mL 5 mL, Intravenous, PRN, Starting on 04/10/17 at 2119, Until Wed04/13/17 at 2202, Line Care, Flush with 5 mL saline pre/post IVP, and 5 mL prior to IVPB or blood product administration. Protocol for PERIPHERAL IV saline lock maintenance, flush with 3-5 mL saline syringe every 8 hours., Flush every shift or after IV medication Given 04/11/2017 8:53 PM EST 5 mL sodium chloride 0.9% syringe Intravenous, ONCE PRN, 1 dose, Starting on Wed04/12/17 at 1140, Until Wed04/12/17 at 1141, Line Care, Flush every shift or after IV medication, Radiology Given 04/12/2017 11:41 AM EST 10 mL [id number] (MYOVIEW) injection 11.6 millicurie 11.6 millicurie, Intravenous, ONCE PRN, 1 dose, Starting on Wed04/13/17 at 1133, Until Wed04/13/17 at 1133, Radiology Procedure, Administration dose must be within 10% of the ordered dose for radiopharmaceutical medications., Radiology Given 04/13/2017 11:33 AM EST 11.6 millicuries [id number] (MYOVIEW) injection 32.9 millicurie 32.9 millicurie, Intravenous, ONCE PRN, 1 dose, Starting on Wed04/12/17 at 1140, Until Wed04/12/17 at 1141, Radiology Procedure, Administration dose must be within 10% of the ordered dose for radiopharmaceutical medications., Radiology Given 04/12/2017 11:41 AM EST 32.9 millicuries documented in this encounter Discontinued Medications Medication Sig Discontinue Reason Start Date End Da te ibuprofen (ADVIL;MOTRIN) 600 mg Oral Tablet Take 1 Tab by mouth every 6 hours as needed for Pain. Stop Taking at Discharge 02/23/2017 04/13/2017 documented as of this encounter Active and Recently Administered Medications Times are shown in EST. Scheduled Medication Order 04/11/2017 04/12/2017 04/13/2017 ARIPiprazole (ABILIFY) tablet 30 mg 30 mg, Oral, DAILY, First dose on Wed04/11/17 at 0900, Until Discontinued 0906 (Given - Provider: Kike Burgos RN) 1521 (Given - Provider: Elvis Singh RN) 0800 (Given - Provider: Elvis Singh RN) aspirin chewable tablet 81 mg 81 mg, Oral, DAILY, First dose on 04/11/17 at 1315, Until Discontinued 1314 (Given - Provider: Kike Burgos RN) 0916 (Given - Provider: Elvis Singh RN) 0802 (Given - Provider: Elvis Singh RN) atorvastatin (LIPITOR) tablet 20 mg 20 mg, Oral, NIGHTLY, First dose on 04/11/17 at 0145, Until Discontinued 014 (Not Given - Provider: Estrellita Simmons RN - Reason: Other - Comment: Pt already took dose [employer])2052 (Given - Provider: Patricia Rey RN) 2233 (Given - Provider: Manju Reid RN) ferrous sulfate tablet 325 mg 325 mg, Oral, 2 TIMES DAILY WITH MEALS, First dose on 04/11/17 at 0800, Until Discontinued 09 (Given - Provider: Kike Burgos RN)1708 (Given - Provider: Kike Burgos RN) 0916 (Given - Provider: Elvis Singh RN)1733 (Given - Provider: Elvis Singh RN) 0801 (Given - Provider: Elvis Singh RN)1748 (Given - Provider: Elvis Singh RN) fUROsemide (LASix) tablet 40 mg 40 mg, Oral, DAILY, First dose on 04/11/17 at 0900, Until Discontinued 0907 (Given - Provider: Kike Burgos RN) 1521 (Given - Provider: Elvis Singh RN) 0801 (Given - Provider: Elvis Singh RN) glipiZIDE (GLUCOTROL) tablet 10 mg 10 mg, Oral, 2 TIMES DAILY WITH MEALS, First dose on 04/11/17 at 0800, Until Discontinued 0907 (Given - Provider: Kike Burgos RN)1708 (Given - Provider: Kike Burgos RN) 0916 (Given - Provider: Elvis Singh RN)1732 (Given - Provider: Elvis Singh RN) 0801 (Given - Provider: Elvis Singh RN)1748 (Given - Provider: Elvis Singh RN) heparin, porcine (PF) injection 5,000 Units 5,000 Units, Subcutaneous, EVERY 8 HOURS SCHEDULED (3 times per day), First dose on 04/11/17 at 1400, Until Discontinued, Hold Heparin for platelet count less than 100,000 1314 (Given - Provider: Kike Burgos RN)2210 (Given - Provider: Patricia Rey RN - Comment: verified with Isis Nath RN) 0519 (Given - Provider: Patricia Rey RN)1323 (Given - Provider: Elvis Singh RN)2234 (Given - Provider: Manju Reid, ROLF) 0628 (Given - Provider: Manju Reid, ROLF)1328 (Given - Provider: Elvis Singh RN) insulin aspart (NovoLOG) injection 1-10 Units 1-10 Units, Subcutaneous, 4 TIMES DAILY WITH MEALS, First dose on 04/11/17 at 1800, Until Discontinued, Medium dose algorithm: [...] least 3 hours. Waste Sort Code = [facility] 1703 (Not Given - Provider: Kike Burgos RN - Reason: Order parameters not met)2210 (Given - Provider: Patricia Rey RN - Comment: verified with Isis Nath RN) 0900 (Given - Provider: Elvis Singh RN)1323 (Given - Provider: Elvis Singh RN)1805 (Given - Provider: Elvis Singh RN)2100 (Not Given - Provider: Manju Reid RN - Reason: Order parameters not met - Comment: BG 114) 0800 (Not Given - Provider: Elvis Singh RN - Reason: Order parameters not met)1200 (Not Given - Provider: Elvis Singh RN - Reason: Order parameters not met)1800 (Not Given - Provider: Elvis Singh RN - Reason: Order parameters not met) insulin glargine (LANTUS) injection 28 Units 28 Units, Subcutaneous, EVERY EVENING (INSULIN), First dose on 04/11/17 at 1900, Until Discontinued, Do not mix with other insulins Waste Sort Code = [facility] 1806 (Given - Provider: Kike Burgos RN) 1805 (Given - Provider: Elvis Singh RN) isosorbide mononitrate (IMDUR) CR tablet 60 mg 60 mg, Oral, DAILY, First dose on 04/11/17 at 0900, Until Discontinued 0908 (Given - Provider: Kike Burgos RN) 0916 (Given - Provider: Elvis Singh RN) 0802 (Given - Provider: Elvis Singh RN) metFORMIN (GLUCOPHAGE) tablet 500 mg 500 mg, Oral, 2 TIMES DAILY, First dose on 04/11/17 at 0145, Until Discontinued, For procedures using IV iodinated contrast: hold metformin at the time of or prior to the procedure, and for 48 hours after. 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 took evening dose [employer]INEER)0908 (Given - Provider: Kike Burgos RN)2052 (Given - Provider: Patricia Rey RN) 0916 (Given - Provider: Elvis Singh RN)2234 (Given - Provider: Manju Reid, ROLF) 0800 (Given - Provider: Elvis Singh RN) metoprolol (LOPRESSOR) tablet 50 mg 50 mg, Oral, 2 TIMES DAILY, First dose on 04/11/17 at 0145, Until Discontinued 014 (Not Given - Provider: Estrellita Simmons RN - Reason: Other - Comment: Pt already took evening dose [employer]INEER)906 (Given - Provider: Kike Burgos RN)2052 (Given - Provider: Patricia Rey RN) 0916 (Given - Provider: Elvis Singh, RN)2234 (Given - Provider: Manju Reid, ROLF) 0800 (Given - Provider: Elvis Singh, ROLF) NIFEdipine (PROCARDIA XL) CR tablet 90 mg 90 mg, Oral, DAILY, First dose on 04/11/17 at 0900, Until Discontinued 908 (Given - Provider: Kike Burgos RN) 0916 (Given - Provider: Elvis Singh, ROLF) 0800 (Given - Provider: Elvis Singh, ROLF) nitroGLYCERIN (NITROGLYN) 2 % ointment 1 Inch (CANCELED) 1 Inch, Topical, EVERY 6 HOURS SCHEDULED (4 times per day), First dose on 04/11/17 at 0115, Until Discontinued, Wipe off old dose, apply to chest wall. 0115 (Not Given - Provider: Estrellita Simmons RN - Reason: Other - Comment: New patch applied at 2326 in the ED)0507 (Patch Applied - Provider: Estrellita Simmons RN)1145 (Patch Applied - Provider: Kike Burgos RN)1703 (Not Given - Provider: Kike Burgos RN - Reason: Patient/family declined) 0012 (Patch Applied - Provider: Patricia Rey RN)0520 (Patch Applied - Provider: Patricia Rey RN) pantoprazole (PROTONIX) tablet 40 mg 40 mg, Oral, DAILY, First dose on 04/11/17 at 0900, Until Discontinued, Do not crush or chew 0908 (Given - Provider: Kike Burgos RN) 1521 (Given - Provider: Elvis Singh, ROLF) 0800 (Given - Provider: Elvis Singh, ROLF) ranolazine (RANEXA) SR tablet 1,000 mg 1,000 mg, Oral, EVERY 12 HOURS SCHEDULED (2 times per day), First dose on 04/11/17 at 0145, Until Discontinued 014 (Not Given - Provider: Estrellita Simmons RN - Reason: Other - Comment: Pt already took evening dose [employer]INEER)905 (Given - Provider: Kike Burgos RN)2052 (Given - Provider: Patricia Rey, ROLF) 0916 (Given - Provider: Elvis Singh, ROLF)2234 (Given - Provider: Manju Reid, ROLF) 0800 (Given - Provider: Elvis Singh, ROLF) regadenoson (LEXISCAN) injection 0.4 mg (COMPLETED) 0.4 mg, Intravenous, ONCE, 1 dose, On 04/12/17 at 1245, Echo Meds 1100 (Given - Provider: Marta Mock RN)1245 (Hold - Provider: Marta Mock RN - Reason: Other) sertraline (ZOLOFT) tablet 200 mg 200 mg, Oral, DAILY, First dose on Wed04/11/17 at 0900, Until Discontinued 907 (Given - Provider: Kike Burgos RN) 1521 (Given - Provider: Elvis Singh, ROLF) 0800 (Given - Provider: Elvis Singh, ROLF) PRN Medication Order 04/11/2017 04/12/2017 04/13/2017 acetaminophen (TYLENOL) suppository 650 mg(Linked Group 1) 650 mg, Rectal, EVERY 4 HOURS PRN, Starting on 04/10/17 at 2341, Until Tu04/13/17 at 2202, Fever, Headaches, Maximum adult dose of acetaminophen is 4000 mg from all sources in 24 hours. acetaminophen (TYLENOL) tablet 650 mg(Linked Group 1) 650 mg, Oral, EVERY 4 HOURS PRN, Starting on 04/10/17 at 2341, Until 04/13/17 at 2202, Fever, Headaches, Maximum adult dose of acetaminophen is 4000 mg from all sources in 24 hours. dextrose 50 % solution 25 mL 25 mL, Intravenous, PRN, Starting on 04/11/17 at 1245, Until Tu04/13/17 at 2202, Low blood sugar, If FSBS less than 70 mg/dl and patient cannot take orally, Check FSBS every 30 minutes and repeat 25 mL of D50 IV push and notify physician if FSBS less than 70 mg/dL VESICANT glucagon (human recombinant) (GLUCAGEN) injection 1 mg 1 mg, Intramuscular, PRN, Starting on Wed04/11/17 at 1245, Until Wed04/13/17 at 2202, Low blood sugar, If FSBS less than 70 mg/dl, patient cannot take orally and without IV access, If patient is without IV access, give Glucagon 1 mg Intramuscularly, insert IV and call physician. morphine injection 4 mg (CANCELED) 4 mg, Intravenous, EVERY 4 HOURS PRN, Starting on Wed04/11/17 at 0005, Until Wed04/12/17 at 1310, Pain 0104 (Given - Provider: Estrellita Simmons, RN)0507 (Given - Provider: Estrellita Simmons RN)0916 (Given - Provider: Kike Burgos RN)1628 (Given - Provider: Cassie Garcia, ROLF)2052 (Given - Provider: Patricia Rey, RN) 0528 (Given - Provider: Patricia Rey, ROLF) nitroGLYCERIN (NITROSTAT) SL tablet 0.4 mg 0.4 mg, Sublingual, EVERY 5 MIN PRN, Starting on Wed04/11/17 at 0005, Until Wed04/13/17 at 2202, Chest pain, 0.4 mg = 1 Tab sublingual q5 min x 3 for CP, then notify MD if unrelieved - hold if SBP less than 90. Administer for angina/chest pain prior to administration of analgesics for angina. oxyCODONE-acetaminophen (PERCOCET) 5-325 mg per tablet 1-2 Tab 1-2 Tablet, Oral, EVERY 4 HOURS PRN, Starting on Wed04/12/17 at 1310, Until Wed04/13/17 at 2202, Pain, Maximum adult dose of acetaminophen is 4000 mg from all sources in 24 hours. 1323 (Given - Provider: Elvis Singh, ROLF)1732 (Given - Provider: Elvis Singh, ROLF)2234 (Given - Provider: Manju Reid, ROLF) 0343 (Given - Provider: Manju Reid, ROLF)0802 (Given - Provider: Elvis Singh, ROLF)1202 (Given - Provider: Elvis Singh RN)1611 (Given - Provider: Elvis Singh RN) sodium chloride 0.9% IV line flush 50 mL 50 mL, Intravenous, at 150-600 mL/hr, PRN, Starting on 04/10/17 at 211, Until Tu04/13/17 at 2202, Line Care, Flush with a minimum of 20 mL after IVPB to insure complete administration of the dose. May use the saline infusion to back flush IVPB tubing as needed., Use this order to document priming and flushing IV line after medication administration. sodium chloride 0.9% syringe 5 mL 5 mL, Intravenous, PRN, Starting on 04/10/17 at 2118, Until Wed04/13/17 at 220, Line Care, Flush with 5 mL saline pre/post IVP, and 5 mL prior to IVPB or blood product administration. Protocol for PERIPHERAL IV saline lock maintenance, flush with 3-5 mL saline syringe every 8 hours., Flush every shift or after IV medication 2052 (Given - Provider: Patricia Rey RN) sodium chloride 0.9% syringe (COMPLETED) Intravenous, ONCE PRN, 1 dose, Starting on Wed04/12/17 at 1140, Until Wed04/12/17 at 1141, Line Care, Flush every shift or after IV medication, Radiology 114 (Given - Provider: Rome Zapata, RADAR SYSTEMS ENGINEER) [id number] (MYOVIEW) injection 11.6 millicurie (COMPLETED) 11.6 millicurie, Intravenous, ONCE PRN, 1 dose, Starting on Tu04/13/17 at 1133, Until Tu04/13/17 at 1133, Radiology Procedure, Administration dose must be within 10% of the ordered dose for radiopharmaceutical medications., Radiology 1133 (Given - Provider: Fransisco Garner, RADAR SYSTEMS ENGINEER) [id number] (MYOVIEW) injection 32.9 millicurie (COMPLETED) 32.9 millicurie, Intravenous, ONCE PRN, 1 dose, Starting on 04/12/17 at 1140, Until Wed04/12/17 at 1141, Radiology Procedure, Administration dose must be within 10% of the ordered dose for radiopharmaceutical medications., Radiology 1141 (Given - Provider: Rome Zapata, RADAR SYSTEMS ENGINEER) Linked Groups Order Group 1: acetaminophen (TYLENOL) tablet 650 mgJump to med 650 mg, Oral, EVERY 4 HOURS PRN, Starting on 04/10/17 at 2341, Until 04/13/17 at 2202, Fever, Headaches, Maximum adult dose of acetaminophen is 4000 mg from all sources in 24 hours. Or acetaminophen (TYLENOL) suppository 650 mgJump to med 650 mg, Rectal, EVERY 4 HOURS PRN, Starting on 04/10/17 at 2341, Until 04/13/17 at 2202, Fever, Headaches, Maximum adult dose of acetaminophen is 4000 mg from all sources in 24 hours. documented in this encounter Orders Medications Ordered That Gaurav ht Not Have Been Administered Count Last Ordered Date First Ordered Date dextrose 50 % solution 25 mL 2 04/11/2017 04/10/2017 glucagon (human recombinant) (GLUCAGEN) injection 1 mg 2 04/11/2017 04/10/2017 nitroGLYCERIN (NITROSTAT) SL tablet 0.4 mg 1 04/11/2017 acetaminophen (TYLENOL) suppository 650 mg 1 04/10/2017 acetaminophen (TYLENOL) tablet 650 mg 1 05/2017 insulin aspart (NovoLOG) inj ection 1-10 Units 1 04/10/2017 sodium chloride 0.9% IV line flush 50 mL 1 04/10/2017 Nursing Count Last Ordered Date First Orde red Date [facility]H NON-CANDIDATE 1 04/11/2017 ADMISSION 1 04/10/2017 CARDIAC MONITORING 1 04/10/2017 ED ENTER ADMISSION ORDER 1 04/10/2017 Consult Count Last Ordered Date First Orde red Date IP CONSULT TO CARDIOLOGY 1 04/11/2017 IV Count Last Ordered Date First Orde red Date SALINE LOCK IV 1 04/10/2017 Transfer Count Last Ordered Date First Orde red Date BED REQUEST 1 04/10/2017 documented in this encounter Care Teams Lpn Instructor Relationship Specialty Start Date End Date Sharee Segovia APRN [address] [place], [place] [address] PCP - General Nurse Practitioner-Family 09/21/16 documented as of this encounter
--- OUTSIDE RECORDS SUMMARY | 2024-02-16 14:57 | XMS_ITS | Encounter Summary ---
Author Organization [place] [address] Care Team Providers Care Chief Accounting Officer Name Role Phone Sharee Segovia APRN Primary Care Provider [phone] [phone] Reason for Visit * Reason Comments Medication Refill Encounter Details Date Type Department Care Team (Late st Contact Info) Description 01/25/2017 Refill [facility] [address] [place] [address] Joanna Hitchcock MD Medication Refill Social [...] ONE TABLET BY MOUTH NIGHTLY 30 Tab 01/26/2017 7 RANEXA 1,000 mg Oral Tablet Sustained Release 12 hrIndications:Stab le angina (HCC) TAKE ONE TABLET BY MOUTH EVERY 12 HOURS 60 Tab 01/26/2017 8 metoprolol (LOPRESSOR) 50 mg Oral Tablet TAKE 1 TABLET BY MOUTH 2 TIMES DAILY 60 Tab 2 01/26/2017 8 documented in this encounter Plan of Treatment [...] te metoprolol (LOPRESSOR) 50 mg Oral Tablet Take 1 Tab by mouth 2 times daily. Reorder 10/15/2016 01/25/2017 RANEXA 1,000 mg Oral Tablet Sustained Release 12 hrIndications:Stable angina (HCC) TAKE ONE TABLET BY MOUTH EVERY 12 HOURS Reorder 12/30/2016 01/25/2017 documented as of this encounter Care Teams Chief Accounting Officer Relationship Specialty Start Date End Date Sharee Segovia APRN [address] [place] [phone] PCP - General Nurse Practitioner-Family 09/21/16 documented as of this encounter
--- OUTSIDE RECORDS SUMMARY | 2024-02-16 14:57 | XMS_ITS | Encounter Summary ---
Author Organization [place] [address] Care Team Providers Care Geriatric Social Worker Name Role Phone Sharee Segovia APRN Primary Care Provider [phone] Reason for Visit * Reason Comments Medication Refill Encounter Details Date Type Department Care Team (Late st Contact Info) Description 11/17/2016 Refill [facility] [address] [place] [address] Joanna Hitchcock MD Medication Refill Social [...] Date atorvastatin (LIPITOR) 20 mg Oral Tablet Take 1 Tab by mouth nightly. 30 Tab 1 11/17/2016 01/13/2017 lisinopril (PRINIVIL;ZESTRIL) 5 mg Oral Tablet TAKE 1 TABLET BY MOUTH DAILY 30 Tab 5 11/17/2016 12/22/2016 isosorbide mononitrate (IMDUR) 60 mg Oral Tablet Sustained Release 24 hr Take 1 Tab by mouth daily. 30 Tab 1 11/17/2016 01/13/2017 documented in this encounter Plan of Treatment [...] lisinopril (PRINIVIL;ZESTRIL) 5 mg Oral Tablet Take by mouth daily. Reorder 11/17/2016 documented as of this encounter Care Teams Geriatric Social Worker Relationship Specialty Start Date End Date Sharee Segovia APRN [address] [place] [phone] PCP - General Nurse Practitioner-Family 09/21/16 documented as of this encounter
--- OUTSIDE RECORDS SUMMARY | 2024-02-16 14:57 | XMS_ITS | Encounter Summary ---
Author Organization [facility] [place] [address] Care Team Providers Care Production Operations Engineer Name Role Phone Sharee Segovia APRN Primary Care Provider [phone] [phone] Reason for Visit * Reason Comments Medication Refill Encounter Details Date Type Department Care Team (Late st Contact Info) Description 02/19/2017 Refill [facility] [address] [place] [address] Joanna Hitchcock MD [...] ONE TABLET BY MOUTH NIGHTLY 30 Tab 02/19/2017 7 documented in this encounter Plan of [...] Discontinue Reason Start Date End Da te amitriptyline (ELAVIL) 75 mg Oral Tablet TAKE ONE TABLET BY MOUTH NIGHTLY Reorder 01/26/2017 02/19/2017 documented as of this encounter Care Teams Production Operations Engineer Relationship Specialty Start Date End Date Sharee Segovia APRN [address] [place] [phone] PCP - General Nurse Practitioner-Family 09/21/16 documented as of this encounter
--- OUTSIDE RECORDS SUMMARY | 2024-02-16 14:57 | XMS_ITS | Encounter Summary ---
Author Organization [place] [address] Care Team Providers Care Regulatory Compliance Engineer Name Role Phone Sharee Segovia APRN Primary Care Provider [phone] [phone] Reason for Visit * Reason Comments Hospital Follow Up Angiogram f/u (Meds per verbal review, pt does not know her medication) Atrial Flutter Congestive Heart Failure Coronary Artery Disease Hypertension * Consultation (Routine) - Closed Specialty Diagnoses / Procedures Referred By Contac t Referred To Contact Internal Medicine-Interventional Cardiology / Cardiology Diagnoses Essential (primary) hypertension Hospital f/u (angio) Overdue Procedures OFFICE VISIT Sharee Segovia APRN [address] [place] [address] Phone: tel: fax: Bello Devries MD [address] [place] [address] [place] [address] Phone: tel: fax: Referral ID Status Reason Start Date Expiration Date Visits Re quested Visits Authorized [id number] Closed 01/21/2017 01/21/2018 99 99 Encounter Details Date Type Department Care Team (Late st Contact Info) Description 01/21/2017 10:15 AM EST Office Visit [facility] [address] [place] [address] Bello Devries MD [address] [place] [address] [place] [address] Chronic diastolic CHF (congestive heart failure) (HCC) (Primary Dx); Atrial flutter, unspecified type (HCC); Essential hypertension; Coronary artery disease involving [place] coronary artery of [place] heart with unstable angina pectoris (HCC) Social [...] Sign Reading Time Taken Comments Blood Pressure 146/73 01/21/2017 10:31 AM EST Pulse 64 01/21/2017 10:31 AM EST Temperature - - Respiratory Rate - - Oxygen Saturation - - Inhaled Oxygen Concentration - - Weight 118.1 kg (260 lb 6.4 oz) 017 10:31 AM EST Height 172.7 cm (5' 8 ) 01/21/2017 10:3 1 AM EST Body Mass Index 39.59 01/21/2017 10:31 AM EST documented in this encounter Progress Notes * Bello Devries MD - 01/21/2017 10:15 AM EST Subjective: Patient ID: Faby Palm is a 66 y.o. female. Chief Complaint Patient presents with ??? Hospital Follow Up Angiogram f/u (Meds per verbal review, pt does not know her medication) ??? Atrial Flutter ??? Congestive Heart Failure ??? Coronary Artery Disease ??? Hypertension Ms. Palm is here for a scheduled routine follow-up visit HPI None Their chronic cardiac conditions are: Problem List Cardiology Problems Essential hypertension Home bp good Precordial pain Coronary artery disease involving [place] coronary artery of [place] heart with unstable angina pectoris (HCC) Sensation sitting on chest All the time Worse with stress Better lying calm Chronic diastolic CHF (congestive heart failure) (HCC) No diuretics Angina pectoris (HCC) S/P ablation of atrial flutter Atrial flutter (HCC) Hypotension History Smoking Status ??? Never Smoker Smokeless Tobacco ??? Never Used Current Outpatient Prescriptions Medication Sig Dispense Refill ??? acetaminophen 325 mg Oral Tab Take 650 mg by mouth every 4 hours as needed for Pain. ??? ARIPiprazole (ABILIFY) 10 mg Oral Tablet Take 30 mg by mouth 2 times daily. ??? atorvastatin (LIPITOR) 20 mg Oral [...] mouth 2 times daily. Indications: ANXIETY ??? insulin glargine (LANTUS) 100 unit/mL SubQ Solution Inject 21 units at nighttime in subcutaneous area.May substitute pens if covered by insurance (Patient taking differently: Inject 28 units at nighttime in subcutaneous area.May substitute pens if covered by insurance) 10 mL 3 ??? insulin syringe,safetyneedle 1 mL 30 gauge x 516 Misc Syringe 1 Syringe by [facility]Non-Drug; Combo Route) route nightly. 30 Syringe 1 ??? isosorbide mononitrate (IMDUR) 60 mg Oral Tablet Sustained Release 24 hr Take 1 Tab by mouth daily. 14 Tab 0 ??? metFORMIN (GLUCOPHAGE) 500 mg Oral Tablet [...] BY MOUTH ONCEDAILY 30 Tab 6 ??? risperiDONE (RISPERDAL) 1 mg Oral Tablet Take 2 mg by mouth nightly. ??? roPINIRole (REQUIP) 0.5 mg Oral Tablet TALE 3 TABLET BY MOUTH DAILY FOR 1.5MG AT BEDTIME 90 Tab5 ??? sitaGLIPtin (JANUVIA) 100 mg Oral Tablet Take 100 mg by mouth daily. ??? UNIFINE PENTIPS 32 gauge x 5/32 Misc Needle USE WITH LANTUS ONCE DAILY 30 Each 0 ??? RANEXA 1,000 mg Oral Tablet Sustained Release 12 hr TAKE ONE TABLET BY MOUTH EVERY 12 HOURS 60 Tab 0 ??? sertraline (ZOLOFT) 100 mg Oral Tablet Take 200 mg by mouth daily. Reported on 08/12/2016 ??? venlafaxine (EFFEXOR-XR) 150 mg Oral Capsule, Sust. Release 24 hr Take by mouth daily. No current facility-administered medications for this visit. Patients past medical, family and social histories were reviewed and updated. There were no changesexcept as noted. Review of Systems Constitution: Negative for weight loss. HENT: Negative for nosebleeds. Cardiovascular: Negative for chest pain. Respiratory: Negative for shortness of breath. Endocrine: Negative for cold intolerance. Skin: Negative for rash. Musculoskeletal: Negative for arthritis. Gastrointestinal: Negative for melena. Neurological: Negative for light-headedness. Objective: Patient Vitals for the past 24 hrs: Pulse BP BP Location Patient Position 01/21/17 1031 64 146/73 Right arm Sitting Body mass index is 39.59 kg/m??. Physical Exam Constitutional: She appears healthy. [...] Skin is warm. No pallor. Relevant Studies ECHO Normal No results found for this visit on 01/21/17. Lab Review Lab Results Component Value Date WBC 6.7 12/18/2016 HGB 11.9 (L) 12/18/2016 PLT 138 (L) 12/21/2016 Lab Results Component Value Date NA 142 12/22/2016 K 4.6 12/22/2016 GLU 152 (H) 12/22/2016 ALT 9 10/22/2016 ALKPHOS 157 (H) 10/22/2016 Lab Results Component Value Date TSH 5.510 (H) 10/22/2016 Lab Results Component Value Date CHOLESTEROL 164 10/22/2016 HDL 48 10/22/2016 LDLCALC 69 10/22/2016 TRIG 235 (H) 10/22/2016 Lab Results Component Value Date INR 1.09 11/10/2016 Assessment and Plan: Faby was seen today for hospital follow up, atrial flutter, congestive heart failure, coronary artery disease and hypertension. Diagnoses and all orders for this visit: Chronic diastolic CHF (congestive heart failure) (HCC) Atrial flutter, unspecified type (HCC) Essential hypertension Coronary artery disease involving [place] coronary artery of [place] heart with unstable angina pectoris (HCC) 1. Chronic CHF diastolic- off diuretics for now 2. ARF- with low bp and cesario I and NSAIDS- I encouraged OP fu with renal 3. ASHD- 60% LAD on cath 10/22 4. PAf- remote 5. Hyplerlipidemia- continue lipitor Labs in 6 months. Diuretics to be added by renal if needed- daily weights monitored documented in this encounter Miscellaneous Notes * Patient Instructions - Steph Ontiveros RMA - 01/21/2017 10:15 AM EST Please remember to bring your pill bottles, or a list of your medication with you for your next appointment with Dr. Devries. documented in this encounter Plan of Treatment [...] ideal body weight General No Silva Mathew ROSIRonaldo HEMOGLOBIN A1C < 7.0 Result Component 6.6( 9 9:49 AM EST) No Silva Mathew THEO documented as of this encounter Visit Diagnoses Diagnosis Chronic diastolic CHF (congestive heart failure) (HCC)- Primary Atrial flutter, unspecified type (HCC) Essential hypertension Unspecified essential hypertension Coronary artery disease involving [place] coronary artery of [place] heart with unstable angina pectoris (HCC) documented in this encounter Discontinued Medications Medication Sig Discontinue Reason Start Date End Da te amitriptyline (ELAVIL) 75 mg Oral Tablet TAKE ONE TABLET BY MOUTH NIGHTLY DELETE-Therapy completed 12/30/2016 01/21/2017 aspirin 81 mg Oral Tablet, Delayed Release (E.C.) Take 81 mg by mouth daily. DELETE-Therapy completed 01/21/2017 atorvastatin (LIPITOR) 20 mg Oral Tablet TAKE ONE TABLET BY MOUTH NIGHTLY DELETE-Duplicate 01/13/2017 01/21/2017 isosorbide mononitrate (IMDUR) 60 mg Oral Tablet Sustained Release 24 hr TAKE ONE TABLET BY MOUTH ONCE DAILY DELETE-Duplicate 01/13/2017 01/21/2017 LANTUS SOLOSTAR 100 unit/mL (3 mL) SubQ Insulin Pen INJECT 15 UNITS UNDER THE SKIN EVERY EVENING DELETE-Duplicate 12/11/2016 01/21/2017 documented as of this encounter Care Teams Regulatory Compliance Engineer Relationship Specialty Start Date End Date Sharee Segovia APRN [address] [place] [phone] PCP - General Nurse Practitioner-Family 09/21/16 documented as of this encounter
--- OUTSIDE RECORDS SUMMARY | 2024-02-16 14:57 | XMS_ITS | Encounter Summary ---
Author Organization [facility] [place] [address] Care Team Providers Care Pot Fluxer Name Role Phone Sharee Segovia APRN Primary Care Provider [phone] [phone] Reason for Visit * Reason Comments Medication Refill Encounter Details Date Type Department Care Team (Late st Contact Info) Description 11/26/2016 Refill [facility] [address] [place] [address] Joanna Hitchcock MD Medication Refill Social [...] Refills Last Filled Start Date End Date pantoprazole (PROTONIX) 40 mg Oral Tablet, Delayed Release (E.C.) TAKE ONE TABLET BY MOUTH ONCE DAILY 30 Tab 6 11/26/2016 08/09/2017 documented in this encounter Plan of Treatment [...] (E.C.) Take 1 Tab by mouth daily. Reorder 06/24/2016 11/26/2016 documented as of this encounter Care Teams Pot Fluxer Relationship Specialty Start Date End Date Sharee Segovia APRN [address] [place] [phone] PCP - General Nurse Practitioner-Family 09/21/16 documented as of this encounter
--- OUTSIDE RECORDS SUMMARY | 2024-02-16 14:57 | XMS_ITS | Encounter Summary ---
Author Organization [place] [address] Care Team Providers Care Grade Tamper Name Role Phone Sharee Segovia APRN Primary Care Provider [phone] [phone] Reason for Visit * Reason Comments Medication Refill Encounter Details Date Type Department Care Team (Late st Contact Info) Description 12/30/2016 Refill [facility] [address] [place] [address] Joanna Hitchcock MD Medication Refill Social [...] BY MOUTH EVERY 12 HOURS 60 Tab 12/30/2016 7 amitriptyline (ELAVIL) 75 mg Oral Tablet TAKE ONE TABLET BY MOUTH NIGHTLY 30 Tab 12/30/2016 7 documented in this encounter Plan of [...] TAKE ONE TABLET BY MOUTH NIGHTLY Reorder 11/26/2016 12/30/2016 RANEXA 1,000 mg Oral Tablet Sustained Release 12 hrIndications:Stable angina (HCC) TAKE ONE TABLET BY MOUTH EVERY 12 HOURS Reorder 12/04/2016 12/30/2016 documented as of this encounter Care Teams Grade Tamper Relationship Specialty Start Date End Date Sharee Segovia APRN [address] [place] [phone] PCP - General Nurse Practitioner-Family 09/21/16 documented as of this encounter
--- OUTSIDE RECORDS SUMMARY | 2024-02-16 14:57 | XMS_ITS | Encounter Summary ---
Author Organization [place] [address] Care Team Providers Care Team Facilitator Name Role Phone Sharee Segovia APRN Primary Care Provider [phone] Reason for Visit * Reason Comments Follow-up 4 week f/u Fall pt sts that she has been falling , sts that she fell 3-4 times in the past week. Encounter Details Date Type Department Care Team (Late st Contact Info) Description 11/19/2016 10:00 AM EDT Office Visit [facility] [address] 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, with long-term current use of insulin (HCC); Peripheral edema; Frequent falls; Essential hypertension; Coronary artery disease involving [place] coronary artery of [place] heart with unstable angina pectoris (HCC) Social [...] Sign Reading Time Taken Comments Blood Pressure 122/80 11/19/2016 10:04 AM EDT Pulse 72 11/19/2016 10:04 AM EDT Temperature 36.5 ??C (97.7 ??F) 11/19/2016 10:04 AM E DT Respiratory Rate 16 11/19/2016 10:04 AM EDT Oxygen Saturation 96% 11/19/2016 10:04 AM EDT Inhaled Oxygen Concentration - - Weight 115.7 kg (255 lb) 11/19/2016 10:04 AM EDT Height 174 cm (5' 8.5 ) 11/19/2016 10:04 AM EDT Body Mass Index 38.21 11/19/2016 10:04 AM EDT documented in this encounter Ordered Prescriptions Prescription Sig Dispense Quantity Refills Last Filled Start Date End Date nitroGLYCERIN (NITROSTAT) 0.4 mg SL Tablet, SublingualIndicati ons:Angina pectoris (HCC) Place 1 Tab under the tongue every 5 minutes as needed for Chest pain. 20 Tab 2 11/19/2016 9 fUROsemide (LASIX) 40 mg Oral TabletIndications: Peripheral edema Take 1 Tab by mouth daily. 30 Tab 2 11/19/2016 7 nitroGLYCERIN (NITROSTAT) 0.4 mg SL Tablet, SublingualIndicati ons:Angina pectoris (HCC) Place 1 Tab under the tongue every 5 minutes as needed for Chest pain. 20 Tab 2 11/19/2016 7 documented in this encounter Progress Notes * Sharee Segovia ARNP - 11/19/2016 10:00 AM EDT Diagnoses and all orders for this visit: 1. History of CVA (cerebrovascular accident) Comments: needs to see ortho 2. Angina pectoris (HCC) (Chronic) Comments: recent ER visit refill of NTG Orders: - nitroGLYCERIN (NITROSTAT) 0.4 mg SL Tablet, Sublingual; Place 1 Tab under the tongue every 5 minutes as needed for Chest pain. Dispense: 20 Tab; Refill: 2 3. 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 Peripheral edema Comments: increase lasix Orders: - fUROsemide (LASIX) 40 mg Oral Tablet; Take 1 Tab by mouth daily. Dispense: 30 Tab; Refill: 2 5. Frequent falls Comments: to use walker consider PT 6. Essential hypertension Comments: stable 7. Coronary artery disease involving [place] coronary artery of [place] heart with unstable angina pectoris (HCC) Comments: refill NTG Overview: Coronary Findings 12/2015 Dominance: Right Left Main The vessel is moderate in size. Left Anterior Descending Proximal LAD 60-70% stenosis. Left Circumflex There is mild diffuse disease throughout the vessel. Right Coronary Artery High anterior takeoff. Ostial RCA 20%, no dampening noted. Subjective Chief Complaint Patient presents with ??? Follow-up 4 week f/u ??? Fall pt sts that she has been falling , sts that she fell 3-4 times in the past week. Here for follow up. Has fallen three times in the past week. On all three occasions she was using her walker. Denies any dizziness prior to each fall. States she can always tell when she is going to fall. Feels week but denies any dizziness. Does not feel like blood sugar is low. At the home where she lives they are trying to walk with her for assistance. Was seen in the ER 10 days ago with chest pain. She was not given NTG at the home. States they couldn't find it and called EMS. EMS gave aspirin and NTG and then the pain went away at the ER. No EKG changes noted. Neg troponin's. Pt complains of not losing weight. States every Donato she eats too much when she eats too much. States she eats a bag of donuts. States she knows nothing about watching her diet with her diabetes. Is checking blood sugar daily. Is always in the 200's. Is taking 21 units at night. Advised to go up to to 24 units. Patient Active Problem List Diagnosis ??? History of CVA (cerebrovascular accident) ??? Frequent falls ??? Essential hypertension ??? Peripheral motor neuropathy ??? Precordial pain ??? Gastrointestinal hemorrhage associated with gastroduodenitis ??? Acute blood loss anemia ??? Hemiparesis affecting left side as late effect of stroke (HCC) ??? ELIU (iron deficiency anemia) ??? JACK (acute kidney injury) ([facility]) ??? Coronary artery disease involving [place] coronary artery of [place] heart with unstable angina pectoris (HCC) ??? Chronic diastolic CHF (congestive heart failure) ([facility]) ??? Angina pectoris (HCC) ??? Ulcer of esophagus without bleeding ??? S/P ablation of atrial flutter ??? Atrial flutter (HCC) ??? 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 3 chronic kidney disease, with long-term current use of insulin (HCC) ??? Mood disorder (HCC) ??? 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 ([facility]) ??? Recurrent major depressive disorder, in partial remission ([facility]) Current Outpatient Prescriptions on File Prior to [...] insulin syringe,safetyneedle 1 mL 30 gauge x 16 Misc Syringe 1 Syringe by [facility].(Non-Drug; Combo Route) route nightly. 30 Syringe 1 ??? isosorbide mononitrate (IMDUR) 60 mg Oral Tablet Sustained Release 24 hr Take 1 Tab by mouth daily. 30 Tab 1 ??? isosorbide mononitrate (IMDUR) 60 mg Oral Tablet Sustained Release 24 hr Take 1 Tab by mouth daily. 14 Tab 0 ??? lisinopril (PRINIVIL;ZESTRIL) 5 mg Oral Tablet TAKE 1 TABLET BY MOUTH DAILY 30 Tab 5 ??? metFORMIN (GLUCOPHAGE) 500 mg Oral Tablet Take 500 mg by mouth 2 times daily. ??? metoprolol (LOPRESSOR) 50 mg Oral Tablet Take 1 Tab by mouth 2 times daily. 60 Tab 0 ??? miconazole (MICATIN) 2 % Top Powder Apply topically 2 times daily for 43 days. 30 g 0 ??? NIFEdipine (PROCARDIA XL) 90 mg Oral Tablet Extended Rel 24 hr Take 1 Tab by mouth daily. 30 Tab 1 ??? pantoprazole (PROTONIX) 40 mg Oral Tablet, Delayed Release (E.C.) Take 1 Tab by mouth daily. 30Tab 1 ??? Ranolazine 1,000 mg Oral Tablet Sustained Release 12 hr Take 1,000 mg by mouth every 12 hours. 60 Tab 0 ??? risperiDONE (RISPERDAL) 1 mg Oral Tablet Take 2 mg by mouth nightly. ??? roPINIRole (REQUIP) 0.5 mg Oral Tablet Take 1.5 mg by mouth nightly. ??? sertraline (ZOLOFT) 100 mg Oral Tablet Take 200 mg by mouth daily. Reported on 08/12/2016 ??? sitaGLIPtin (JANUVIA) 100 mg Oral Tablet Take 100 mg by mouth daily. No current facility-administered medications on file prior [...] ??? Pneumococcal Conjugate Vaccine 13 Valent 12/26/2015 Health Maintenance Due Topic Date Due ??? Breast Cancer Screening 1950 ??? Microalbuminuria 07/13/1961 ??? Colon Cancer Screening: Colonoscopy 07/13/2001 ??? Zoster (1) 2011 ??? Bone Density Screening 07/13/2016 ??? Fall Risk Assessment 07/13/2016 ??? Influenza Vaccine (1) 11/06/2016 Patient Care Team: Sharee Segovia ARNP as PCP - General (Nurse Practitioner-Family) Review of Systems Respiratory: Negative for chest tightness and shortness of breath. Cardiovascular: Negative for chest pain and palpitations. Neurological: Negative for dizziness and headaches. Objective BP 122/80 Pulse 72 Temp 97.7 ??F (36.5 ??C) (Forehead) Resp 16 Ht 5' 8.5 (1.74 m) Wt 255lb (115.7 kg) SpO2 96% BMI 38.21 kg/m?? Physical Exam NAD, pleasant PERRL, ANICTERIS EOMI CTA B RR no murmur No cyanosis or clubbing. 2+ pitting edema bilateral shins and ankles. ABDOMEN SOFT WITH POS BS, NONTENDER Non focal neuro exam GAIT STEADY, POSTURE ERECT Lab Results Component Value Date WBC 7.3 11/10/2016 HGB 12.1 11/10/2016 HCT 36.2 11/10/2016 PLT 148 11/10/2016 CHOLESTEROL 164 10/22/2016 TRIG 235 (H) 10/22/2016 HDL 48 10/22/2016 LDLCALC 69 10/22/2016 ALT 9 10/22/2016 AST 9 10/22/2016 NA 138 11/10/2016 K 4.3 11/10/2016 CL 101 11/10/2016 CREATININE 1.18 11/10/2016 BUN 15 11/10/2016 CO2 28 11/10/2016 TSH 5.510 (H) 10/22/2016 INR 1.09 11/10/2016 GLU 134 (H) 11/10/2016 HGBA1C 7.9 (H) 10/22/2016 [facility] Documentation Medication Compliance: Compliant most of the time Understanding of Current Medications: Fair Medication Compliance Barriers: None or N/A Self-Management Ability: Fair Willingness to Adopt Healthy Behaviors: Fair Potential Barriers to completing treatment plans today: Cognitive Existing barriers discussed and addressed in orders and /or referrals. Educated patient regarding the diagnosis, medication/treatment, goals, self- management tools and instructions based on their care plan. They verbalized understanding of the education given on the After Visit Summary [AVS] for today's visit. A copy of the AVS was provided either in writing and/or via [facility]. A new medicine was prescribed during this [...] Patient Instructions - Sharee Segovia ARNP - 11/19/2016 10:00 AM EDT Increase your insulin to 24 units every night Have babita make an appt for you to see the ortho doctor I sent a refill into the pharmacy for your NTG. I also increased your Lasix (water pill) to 40 mg a day Follow up in a month. documented in this encounter Plan of Treatment Not on file documented as of this encounter Goals Goal Patient Goal Type Associated Problems Recent Progress Patient-Stated? Author Blood Pressure < 140/90 Blood Pressure 124/52(2018 4:00 PM EDT) No Quincy Silva THEO [place] BMI (Calculated) < 30 General 35.6(10/06/19 4:56 PM EDT) No Silva MathewTHEO Maintain a healthy diet, exercise regularly and maintain an ideal body weight General No Shana Mathewjt ColbyTHEO HEMOGLOBIN A1C < 7.0 Result Component 6.6( 9 9:49 AM EST) No Shana Mathewly Lasha ROSIA documented as of this encounter Visit Diagnoses Diagnosis History of CVA (cerebrovascular accident)- Primary Transient ischemic attack (TIA), and cerebral infarction without residual deficits Angina pectoris (HCC) Other and unspecified angina pectoris 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 3 chronic kidney disease, with long-term current use of insulin Peripheral edema Edema Frequent falls Personal history of fall Essential hypertension Unspecified essential hypertension Coronary artery disease involving [place] coronary artery of [place] heart with unstable angina pectoris (HCC) documented in this encounter Discontinued Medications Medication Sig Discontinue Reason Start Date End Da te fUROsemide (LASIX) 20 mg Oral Tablet TAKE ONE TABLET BY MOUTH ONCE DAILY Dose adjustment 10/22/2016 11/19/2016 nitroGLYCERIN (NITROSTAT) 0.4 mg SL Tablet, SublingualIndications:An wendy pectoris (HCC) Place 1 Tab under the tongue every 5 minutes as needed for Chest pain. Reorder 09/21/2016 11/19/2016 nitroGLYCERIN (NITROSTAT) 0.4 mg SL Tablet, SublingualIndications:An wendy pectoris (HCC) Place 1 Tab under the tongue every 5 minutes as needed for Chest pain. Reorder 11/19/2016 11/19/2016 documented as of this encounter Care Teams Team Facilitator Relationship Specialty Start Date End Date Sharee Segovia APRN [address] [place], [place] [phone] PCP - General Nurse Practitioner-Family 09/21/16 documented as of this encounter
--- OUTSIDE RECORDS SUMMARY | 2024-02-16 14:57 | XMS_ITS | Encounter Summary ---
Author Organization [place] [address] Care Team Providers Care Moth Exterminator Name Role Phone Sharee Segovia APRN Primary Care Provider [phone] Reason for Visit * Reason Comments Medication Refill Encounter Details Date Type Department Care Team (Late st Contact Info) Description 12/11/2016 Refill [facility] [address] [place] [address] Joanna Hitchcock MD Medication Refill Social [...] USE WITH LANTUS ONCE DAILY 30 Each 12/11/2016 01/13/2017 documented in this encounter Plan of [...] on filedocumented in this encounter Care Teams Moth Exterminator Relationship Specialty Start Date End Date Sharee Segovia APRN [address] [place] [id number] PCP - General Nurse Practitioner-Family 09/21/16 documented as of this encounter
--- OUTSIDE RECORDS SUMMARY | 2024-02-16 14:57 | XMS_ITS | Encounter Summary ---
Author Organization [place] [address] Care Team Providers Care Log Peeler Name Role Phone Sharee Segovia APRN Primary Care Provider [phone] Reason for Visit * Reason Comments Medication Refill Encounter Details Date Type Department Care Team (Late st Contact Info) Description 12/11/2016 Refill [facility] [address] [place] [address] Joanna Hitchcock MD Medication Refill Social [...] Refills Last Filled Start Date End Date LANTUS SOLOSTAR 100 unit/mL (3 mL) SubQ Insulin Pen INJECT 15 UNITS UNDER THE SKIN EVERY EVENING 15 mL 12/11/2016 7 documented in this encounter Plan of [...] ideal body weight General No Silva Mathew, ROSIA HEMOGLOBIN A1C < 7.0 Result Component 6.6( 9 9:49 AM EST) No Silva Mathew RMA documented as of this encounter Visit Diagnoses Not on filedocumented in this encounter Care Teams Log Peeler Relationship Specialty Start Date End Date Sharee Segovia APRN [address] [place] [phone] PCP - General Nurse Practitioner-Family 09/21/16 documented as of this encounter
--- OUTSIDE RECORDS SUMMARY | 2024-02-16 14:57 | XMS_ITS | Encounter Summary ---
Author Organization [place] [address] Care Team Providers Care Buckle Stapler Name Role Phone Sharee Segovia APRN Primary Care Provider [phone] Reason for Visit * Reason Comments Medication Refill Encounter Details Date Type Department Care Team (Late st Contact Info) Description 04/08/2017 Refill [facility] [address] [place] [address] Joanna Hitchcock MD Medication Refill Social [...] BY MOUTH EVERY 12 HOURS 60 Tab 04/08/2017 05/07/2017 documented in this encounter Plan of Treatment [...] TABLET BY MOUTH EVERY 12 HOURS Reorder 03/10/2017 04/08/2017 documented as of this encounter Care Teams Buckle Stapler Relationship Specialty Start Date End Date Sharee Segovia APRN [address] [place], [place] [phone] PCP - General Nurse Practitioner-Family 09/21/16 documented as of this encounter
--- OUTSIDE RECORDS SUMMARY | 2024-02-16 14:58 | XMS_ITS | Encounter Summary ---
Author Organization [facility] Address [facility] [place] [address] Care Team Providers Care Fruit Canner Name Role Phone Sharee Segovia INFO ANALYST Primary Care Provider [phone] Encounter Details Date Type Department Care Team (Latest Contact Info) Description 10/22/2016 7:33 PM EDT - 10/22/2016 11:59 PM EDT Hospital Encounter EDG LAB LUCILA PROCESSING [facility] Dr. Mantilla [facility]17 Essential hypertension; Need for hepatitis C screening test; Iron deficiency anemia due to chronic blood loss; Annual physical exam Discharge Disposition: Home or Self Care Social [...] on file documented as of this encounter Medications at Time of Discharge [...] mouth 2 times daily. Indications: ANXIETY 7 ibuprofen (ADVIL;MOTRIN) 600 mg Oral TabletIndication s:Right groin pain Take 1 Tab by mouth every 6 hours as needed for Pain. 160 Tab 2 09/21/2016 7 insulin glargine (LANTUS) 100 unit/mL SubQ SolutionIndicati ons:Peripheral motor neuropathy Inject 21 units at nighttime in subcutaneous area.May substitute pens if covered by insurance 10 mL 3 10/22/2016 7 insulin syringe,safetycheryl belle 1 mL 30 gauge x 5/16 Misc Syringe 1 Syringe by [employer].(Non-Drug; Combo Route) route nightly. 30 Syringe 1 08/04/2016 8 metFORMIN (GLUCOPHAGE) 500 mg Oral Tablet Take 500 mg by mouth 2 times daily. 8 miconazole (MICATIN) 2 % Top Powder Apply topically 2 times daily for 43 days. 30 g 10/15/2016 7 NIFEdipine (PROCARDIA XL) 90 mg Oral Tablet Extended Rel 24 hr Take 1 Tab by mouth daily. 30 Tab 1 06/24/2016 8 risperiDONE (RISPERDAL) 1 mg Oral Tablet Take 2 mg by mouth nightly. 7 sitaGLIPtin (JANUVIA) 100 mg Oral Tablet Take 100 mg by mouth daily. 7 documented as of [...] Procedure Name Priority Date/Time Associated Diagnosis Comments HCV ANTIBODY SCREEN W/ REFLEX Routine 10/22/2016 2:42 PM EDT Need for hepatitis C screening test DIFFERENTIAL Routine 10/22/2016 2:42 PM EDT CBC WITH DIFF Routine 10/22/2016 2:42 PM EDT Iron deficiency anemia due to chronic blood loss THYROID STIMULATING HORMONE Routine 10/22/2016 2:42 PM EDT Essential hypertension T4, FREE (THYROXINE) Routine 10/22/2016 2:42 PM EDT Essential hypertension HEMOGLOBIN A1C Routine 10/22/2016 2:42 PM EDT Annual physical exam LIPID SCREEN Routine 10/22/2016 2:42 PM EDT Essential hypertension COMPREHENSIVE METABOLIC PANEL Routine 10/22/2016 2:42 PM EDT Essential hypertension documented in this encounter Results * DIFFERENTIAL (10/22/2016 2:42 PM EDT) Neut Percent 68.2 % [facility] Lymph Percent 21.2 % [facility] [place] Percent 7.4 % [facility] Eos Percent 2.4 % [facility] Baso Percent 0.8 % [facility] Neut# 6.6 1.8 - 7.7 x10(3)/[facility] Lymph# 2.1 0.6 - 4.8 x10(3)/[facility] [place]# 0.7 0.0 - 1.3 x10(3)/[facility] Eos# 0.2 0.0 - 0.5 x10(3)/[facility] Baso# 0.1 0.0 - 0.2 x10(3)/[facility] Blood specimen (specimen) 10/22/2016 2:42 PM EDT 10/22/2016 8:27 PM EDT Sharee Segovia INFO ANALYST HEMATOLOGY ORDERABLES Fin al Result Performing Organization Address City/State/[facility] Co de Phone Number [facility] [address] [place] [address] * (ABNORMAL) HEMOGLOBIN A1C (10/22/2016 2:42 PM EDT) Hgb A1c 7.9(H) <=7.0 % [facility] Comment: Reference Interval for Hgb A1c Hgb A1c ?Interpretation ? < 6.0 ?Non-Diabetic Range 6.0 - 7.0 ? ADA Therapeutic Target ??> 7.0 ? Action suggested Blood specimen (specimen) UPPER LIMB STRUCTURE / Unknown 10/22/2016 2:42 PM EDT 10/22/2016 8:27 PM EDT Sharee Segovia INFO ANALYST CHEMISTRY ORDERABLES Mildred l Result Performing Organization Address [facility] [place] [address] * CBC WITH AUTO DIFF (10/22/2016 2:42 PM EDT) Pathologist [facility] WBC 9.7 4.0 - 11.0 x10(3)/mcL [facility] RBC 4.45 3.80 - 5.10 x10(6)/mcL [facility] Hgb 13.0 12.0 - 15.6 gm/dL [facility] Hct 39.5 35.7 - 45.9 % [facility] MCV 88.6 82.5 - 99.8 fL [facility] MCH 29.1 27.0 - 34.3 pg [facility] MCHC 32.8 32.1 - 35.3 gm/dL [facility] RDW 14.7 11.5 - 15.0 % [facility] Platelet 202 144 - 423 x10(3)/mcL [facility] MPV 10.4 6.8 - 10.8 fL [facility] Blood specimen (specimen) UPPER LIMB STRUCTURE / Unknown 10/22/2016 2:42 PM EDT 10/22/2016 8:27 PM EDT Sharee Segovia INFO ANALYST HEMATOLOGY ORDERABLES Fin al Result Performing Organization Address [facility] Co de Phone Number [facility] [address] [place] [address] * (ABNORMAL) COMPREHENSIVE METABOLIC PANEL (10/22/2016 2:42 PM EDT) Pathologist [facility] Sodium 143 136 - 145 mmol/L [facility] Potassium 4.5 3.5 - 5.0 mmol/L [facility] Chloride 103 98 - 107 mmol/L [facility] Total CO2 28 22 - 29 mmol/L [facility] Anion Gap 12 7 - 16 mmol/L [facility] Calcium 10.0 8.8 - 10.2 mg/dL [facility] Glucose Lvl 113(H) 82 - 100 mg/dL [facility] BUN 26(H) 8 - 23 mg/dL [facility] Creatinine 1.43(H) 0.51 - 1.30 mg/dL [facility] Albumin 3.9 3.2 - 4.6 gm/dL [facility] Total Protein 7.8 6.4 - 8.3 gm/dL [facility] Bili Total 0.4 0.1 - 1.3 mg/dL [facility] AST 9 <=40 IU/L [facility] ALT 9 <=41 IU/L [facility] Alk Phos 157(H) 35 - 104 IU/L [facility] GFR Afr Am 45 [facility] GFR Non Afr Am 37 [facility] Blood specimen (specimen) UPPER LIMB STRUCTURE / Unknown 10/22/2016 2:42 PM EDT 10/22/2016 8:27 PM EDT Sharee Segovia INFO ANALYST CHEMISTRY ORDERABLES Edit ed Result - Final Performing Organization Address [facility] Co de Phone Number [facility] [address] [place] [address] * HEPATITIS C ANTIBODY - SCREENING (10/22/2016 2:42 PM EDT) Hep C Ab Negative Negative [facility] Blood specimen (specimen) UPPER LIMB STRUCTURE / Unknown 10/22/2016 2:42 PM EDT 10/22/2016 8:27 PM EDT Sharee Segovia INFO ANALYST HEMATOLOGY ORDERABLES Fin al Result Performing Organization Address [facility] Co de Phone Number [facility] [address] [place] [address] * (ABNORMAL) LIPID SCREEN (10/22/2016 2:42 PM EDT) Cholesterol 164 <=200 mg/dL [facility] Comment: < 200 ?Desirable 200 - 239 ? Borderline High >= 240 ?High Triglyceride 235(H) <=150 mg/dL [facility] Comment: < 150 ? Normal 150 - 199 ?Borderline High 200 - 499 ?High ??>= 500 ? Very High HDL 48 >=40 mg/dL [facility] Comment: ?? > 60 ?Optimal 40 - 60 ?Acceptable ?? < 40 ?Low LDL Calculated 69 <=100 mg/dL [facility] Comment: ??< 100 ?Optimal 100 - 129 ? Near or above optimal 130 - 159 ? Borderline High 160 - 189 ? High >= 190 ?Very High Blood specimen (specimen) UPPER LIMB STRUCTURE / Unknown 10/22/2016 2:42 PM EDT 10/22/2016 8:27 PM EDT Sharee Segovia INFO ANALYST CHEMISTRY ORDERABLES Edit ed Result - Final Performing Organization Address [facility] [place] [address] * T4, FREE (THYROXINE) (10/22/2016 2:42 PM EDT) Free T4 0.81 0.80 - 2.00 ng/dL [facility] Blood specimen (specimen) UPPER LIMB STRUCTURE / Unknown 10/22/2016 2:42 PM EDT 10/22/2016 8:27 PM EDT Sharee Segovia INFO ANALYST CHEMISTRY ORDERABLES Mildred l Result Performing Organization Address [facility] [place] [address] * (ABNORMAL) THYROID STIMULATING HORMONE (10/22/2016 2:42 PM EDT) TSH 5.510(H) 0.270 - 4.200 mcIU/mL [facility] Blood specimen (specimen) UPPER LIMB STRUCTURE / Unknown 10/22/2016 2:42 PM EDT 10/22/2016 8:27 PM EDT Sharee Segovia INFO ANALYST CHEMISTRY ORDERABLES Mildred l Result [facility] [address] [place] [address] documented in this encounter Visit Diagnoses Diagnosis Essential hypertension Unspecified essential hypertension Need for hepatitis C screening test Special screening examination for other specified viral diseases Iron deficiency anemia due to chronic blood loss Iron deficiency anemia secondary to blood loss (chronic) Annual physical exam Routine general medical examination at a health care facility documented in this encounter Care Teams Fruit Canner Relationship Specialty Start Date End Date Sharee Segovia APRN [address] [place] [address] PCP - General Nurse Practitioner-Family 09/21/16 documented as of this encounter
--- OUTSIDE RECORDS SUMMARY | 2024-02-16 14:58 | XMS_ITS | Encounter Summary ---
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, with long-term current use of insulin 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 Sharee Segovia [place] [address] Phone: tel: fax: [facility] [address] [place] [address] Phone: tel: fax: Referral ID Status Reason Start Date Expiration Date V isits Requested Visits Authorized [id number] Closed Specialty Services Required 10/22/2016 10/22/2017 99 99 Comments Or can see dr johnson in [place] Reason for Visit * Reason Comments Hospital Follow Up was in the hospital last foe chest pain, pt sts that they did a procedure and was released Wednesday, Pt sts that she is feeling some better but feeling nerves.( Not sure about meds Nurse at home is out for the day) Diabetes been running up in t he 200. Other wanting to know if s he can get toe nails cut Encounter Details Date Type Department Care Team (Late st Contact Info) Description 10/22/2016 1:40 PM EDT Office Visit [facility] [address] 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 (HCC) (Primary Dx); Peripheral motor neuropathy; 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 3 chronic kidney disease, with long-term current use of insulin (HCC); 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 (HCC); Recurrent major depressive disorder, in partial remission (HCC) Social History Tobacco Use Types Packs/Day [...] Sign Reading Time Taken Comments Blood Pressure 128/80 10/22/2016 1:54 PM EDT Pulse 59 10/22/2016 1:54 PM EDT Temperature 36.9 ??C (98.5 ??F) 10/22/2016 1:54 PM ED T Respiratory Rate 16 10/22/2016 1:54 PM EDT Oxygen Saturation 94% 10/22/2016 1:54 PM EDT Inhaled Oxygen Concentration - - Weight 116.1 kg (256 lb) 10/22/2016 1:54 PM EDT Height 172.7 cm (5' 8 ) 10/22/2016 1:54 PM EDT Body Mass Index 38.92 10/22/2016 1:54 PM EDT documented in this encounter Ordered Prescriptions Prescription Sig Dispense Quantity Refills Last Filled Start Date End Date insulin glargine (LANTUS) 100 unit/mL SubQ SolutionIndicatio ns:Peripheral motor neuropathy Inject 21 units at nighttime in subcutaneous area.May substitute pens if covered by insurance 10 mL 3 10/22/2016 7 documented in this encounter Progress Notes * Segovia ShareeJEAN-PAUL aceves - 10/22/2016 1:40 PM EDT Diagnoses and all orders for this visit: 1. 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 metoprolol was increased Overview: Coronary Findings 12/2015 Dominance: Right Left Main The vessel is moderate in size. Left Anterior Descending Proximal LAD 60-70% stenosis. Left Circumflex There is mild diffuse disease throughout the vessel. Right Coronary Artery High anterior takeoff. Ostial RCA 20%, no dampening noted. 2. Peripheral motor neuropathy Comments: podiatry Orders: - AMB REFERRAL TO PODIATRY - insulin glargine (LANTUS) 100 unit/mL SubQ Solution; Inject 21 units at nighttime in subcutaneousarea.May substitute pens if covered by insurance Dispense: 10 mL; Refill: 3 3. 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 3 chronic kidney disease, with long-term current use of insulin (HCC) (Chronic) Comments: repeat bmp done today increase lantus to 21 units from 18 units f/u 4 weeks Orders: - AMB REFERRAL TO PODIATRY 4. 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 (HCC) (Chronic) Comments: refer to podiatry Orders: - AMB REFERRAL TO PODIATRY - [place] HANDLG&/OR CONVEY OF SPEC FOR TR OFFICE TO LAB - [place] COLLECTION VENOUS BLOOD,VENIPUNCTURE 5. Recurrent major depressive disorder, in partial remission (HCC) (Chronic) Comments: stable, does not like housing. hoping to go to a assisted living in [place] Subjective Chief Complaint Patient presents with ??? Hospital Follow Up was in the hospital last foe chest pain, pt sts that they did a procedure and was releasedday, Pt sts that she is feeling some better but feeling nerves.( Not sure about meds Nurse at home is out for the day) ??? Diabetes been running up in the 200. ??? Other wanting to know if she can get toe nails cut Here for follow up to hospitalization. Was admitted with chest pain. Angiogram showed no progression of CAD. 50-60% of LAD lesion and RCA of 50%, EF was 55%. Denies any chest pain since discharge. Metoprolol was increased to bid States mood is stable but she does not like living in the assisted living center that she is in. Heis looking to move to [facility] where she has some family States blood sugar was elevated the entire time she was hospitalized and has been above 200. She does give her own insulin and is aware to increase as discussed. States she has very long toenails and would like to see a podiatrists. Patient Active Problem List Diagnosis ??? History of CVA (cerebrovascular accident) ??? Frequent falls ??? Essential hypertension ??? Peripheral motor neuropathy ??? Precordial pain ??? Gastrointestinal hemorrhage associated with gastroduodenitis ??? Acute blood loss anemia ??? Hemiparesis affecting left side as late effect of stroke ([facility]) ??? ELIU (iron deficiency anemia) ??? JACK (acute kidney injury) ([facility]) ??? 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 Chronic diastolic CHF (congestive heart failure) ([facility]) ??? Angina pectoris ([facility]) ??? Ulcer of esophagus without bleeding ??? S/P ablation of atrial flutter ??? Atrial flutter ([facility]) ??? 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 Mood disorder ([facility]) ??? 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 ([facility]) ??? Recurrent major depressive disorder, in partial remission ([facility]) Current Outpatient Prescriptions on [...] Take 81 mg by mouth daily. ??? buPROPion (WELLBUTRIN SR) 150 mg Oral [...] for Pain. 160 Tab 2 ??? insulin syringe,safetyneedle 1 mL 30 gauge x 5/16 Misc Syringe 1 Syringe by Misc.(Non-Drug; Combo Route) route nightly. 30 Syringe 1 ??? lisinopril (PRINIVIL;ZESTRIL) 5 mg Oral Tablet Take by mouth daily. ??? metFORMIN (GLUCOPHAGE) 500 [...] as needed for Chest pain. 20 Tab 0 ??? pantoprazole (PROTONIX) 40 mg [...] on file Social [facility] Cancer Screening 1950 ??? Microalbuminuria 07/13/1961 ??? Hepatitis C Screening 07/13/1969 ??? Colon Cancer Screening: Colonoscopy 07/13/2001 ??? Zoster (1) 2011 ??? Hemoglobin A1c 03/11/2016 ??? Bone Density Screening 07/13/2016 ??? Fall Risk Assessment 07/13/2016 ??? Lipids 09/08/2016 Patient Care Team: Sharee Segovia ARNP as PCP - General (Nurse Practitioner-Family) Review of Systems Cardiovascular: Negative for chest pain and palpitations. Neurological: Positive for dizziness and light-headedness. Negative for headaches. Psychiatric/Behavioral: Positive for agitation and behavioral problems. The patient is nervous/anxious. Objective BP 128/80 Pulse 59 Temp 98.5 ??F (36.9 ??C) (Temporal) Resp 16 Ht 5' 8 (1.727 m) Wt 256 lb (116.1 kg) SpO2 94% BMI 38.92 kg/m?? Physical Exam NAD PERRL, ANICTERIS EOMI CTA B RR no murmur No C/C/E ABDOMEN SOFT WITH POS BS, NONTENDER Non focal neuro exam GAIT STEADY,Hard formed plastic brace on left foot. Using walker for ambulation. Stable on feet Lab Results Component Value Date WBC 8.2 10/15/2016 HGB 12.5 10/15/2016 HCT 38.0 10/15/2016 PLT 158 10/15/2016 CHOLESTEROL 177 09/09/2015 TRIG 375 (H) 09/09/2015 HDL 35 (L) 09/09/2015 LDLCALC 67 09/09/2015 ALT 10 10/13/2016 AST 11 10/13/2016 NA 140 10/15/2016 K 5.1 (H) 10/15/2016 CL 100 10/15/2016 CREATININE 1.63 (H) 10/15/2016 BUN 27 (H) 10/15/2016 CO2 24 10/15/2016 TSH 0.043 (L) 10/13/2016 INR 1.03 12/28/2015 GLU 181 (H) 10/15/2016 HGBA1C 6.1 09/09/2015 [facility] Documentation Medication Compliance - non-compliant some of the time Understanding of current medications - poor Self-Management Tools - lives in [facility] Self-Management Ability - poor Willingness to adopt healthy behaviors - poor Patient Barriers: logistical, cognitive, physical, emotional and financial Existing barriers discussed and addressed in orders and /or referrals. Educated patient regarding the diagnosis, medication/treatment, goals, self- management tools and instructions based on their care plan. They verbalized understanding of the education given on the After Visit Summary [AVS] for today's visit. A copy of the AVS was provided either in writing and/or via [place]. A new medicine was prescribed during this [...] and answered accordingly. * Silva Potts - 10/22/2016 1:40 PM EDT Venipuncture in the right antecubital vein with 21 gauge needle, length 1 1/2 inch. 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 3 chronic kidney disease, with long-term current use of insulin 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 Recurrent major depressive disorder, in partial remission (HCC) documented in this encounter Discontinued Medications Medication Sig Discontinue Reason Start Date End Da te insulin glargine (LANTUS) 100 unit/mL SubQ Solution Inject 18 units at nighttime in subcutaneous area.May substitute pens if covered by insurance Reorder 09/21/2016 10/22/2016 documented as of this encounter Orders Charge Count Last Ordered Date First Orde red Date [place] COLLECTION VENOUS BLOOD,VENIPUNCTURE 1 0 10/22/2016 documented in this encounter Care Teams Associate Director Of Development Relationship Specialty Start Date End Date Sharee Segovia APRN [address] [place] [address] PCP - General Nurse Practitioner-Family 09/21/16 documented as of this encounter
--- OUTSIDE RECORDS SUMMARY | 2024-02-16 14:58 | XMS_ITS | Encounter Summary ---
Author Organization [place] [address] Care Team Providers Care Storage Solutions Architect Name Role Phone Sharee Segovia APRN Primary Care Provider [phone] Encounter Details Date Type Department Care Team (Late st Contact Info) Description 10/15/2016 Orders Only [facility] [address] [place] [address] Sharee Segovia APRN [address] [place] [address] Type 2 diabetes mellitus with renal complication (HCC) Social History Tobacco Use Types Packs/Day [...] as of this encounter Plan of Treatment Scheduled Orders Name Type Priority Associated Diagnoses Orde r Schedule BASIC METABOLIC PANEL Lab Routine Type 2 diabetes mellitus with renal complication (HCC) 1 Occurrences starting 10/15/2016 until 11/14/2016 HEMOGLOBIN A1C Lab Routine Type 2 diabetes mellitus with renal complication (HCC) 1 Occurrences starting 10/15/2016 until 11/14/2016 HEPATIC FUNCTION PANEL Lab Routine Type 2 diabetes mellitus with renal complication (HCC) 1 Occurrences starting 10/15/2016 until 11/14/2016 LIPID SCREEN Lab Routine Type 2 diabetes mellitus with renal complication (HCC) 1 Occurrences starting 10/15/2016 until 11/14/2016 MICROALBUMIN/CREATININE RATIO URINE Lab Routine Type 2 diabetes mellitus with renal complication (HCC) 1 Occurrences starting 10/15/2016 until 11/14/2016 documented as of this encounter Goals Goal [...] as of this encounter Visit Diagnoses Diagnosis Type 2 diabetes mellitus with renal complication (HCC) documented in this encounter Care Teams Storage Solutions Architect Relationship Specialty Start Date End Date Sharee Segovia APRN [address] [place], [place] [phone] PCP - General Nurse Practitioner-Family 09/21/16 documented as of this encounter
--- OUTSIDE RECORDS SUMMARY | 2024-02-16 14:58 | XMS_ITS | Encounter Summary ---
Author Organization [place] [address] Care Team Providers Care Physical Instructor Name Role Phone Sharee Segovia APRN Primary Care Provider [phone] Katheryn Allen RN Unavailable Unavailable Khalida Hunter RESTAURANT RECRUITER, COS Unavailable Unavai lable Reason for Visit * Reason Onset Date Comments Medication Refill 11/02/2016 Encounter Details Date Type Department Care Team (Late st Contact Info) Description 11/02/2016 Telephone SEP Sunny [address] [place] [address] Sharee Segovia APRN [address] [place], [place] [id number] Medication Refill Social History Tobacco Use Types [...] Refills Last Filled Start Date End Date Ranolazine 1,000 mg Oral Tablet Sustained Release 12 hrIndications:Stabl e angina (HCC) Take 1,000 mg by mouth every 12 hours. 60 Tab 11/02/2016 12/04/2016 documented in this encounter Miscellaneous Notes * Telephone Encounter - Josie Saunders RMA - 11/02/2016 5:43 PM EDT Pt aware * Telephone Encounter - Joanna Pierce MD - 11/02/2016 5:23 PM EDT Please inform patient that prescription was sent to pharmacy. * Telephone Encounter - Jess Rosa - 11/02/2016 4:31 PM EDT Pt needs a refill on ranexa ER 1,000 mg. 2xs daily. This was prescribed by her previous PCP. Can someone refill today? [facility] Thank you documented in this encounter Plan [...] this encounter Visit Diagnoses Diagnosis Stable angina (HCC)- Primary Other and unspecified angina pectoris documented in this encounter Discontinued Medications Medication Sig Discontinue Reason Start Date End Da te Ranolazine 1,000 mg Oral Tablet Sustained Release 12 hr Take 1,000 mg by mouth every 12 hours. Reorder 10/15/2016 11/02/2016 documented as of this encounter Care Teams Physical Instructor Relationship Specialty Start Date End Date Sharee Segovia APRN [address] [place], [place] [address] PCP - General Nurse Practitioner-Family 09/21/16 Katheryn Allen, RN Health Advocate Registered Nurse 08/04/17 09/14/17 Khalida Hunter LSW, COS Plasma Table Operator 08/09/17 08/29/17 documented as of this encounter
--- OUTSIDE RECORDS SUMMARY | 2024-02-16 14:58 | XMS_ITS | Encounter Summary ---
Author [place] [address] Care Team Providers Care Retrimmer Name Role Phone Sharee Segovia APRN Primary Care Provider [phone] Reason for Visit * Reason Comments Medication Refill Encounter Details Date Type Department Care Team (Late st Contact Info) Description 10/22/2016 Refill SEP Sunny [address] [place] [address] Joanna Hitchcock MD [...] ONE TABLET BY MOUTH NIGHTLY 30 Tab 10/22/2016 7 atorvastatin (LIPITOR) 20 mg Oral Tablet Take 1 Tab by mouth nightly. 14 Tab 10/22/2016 7 isosorbide mononitrate (IMDUR) 60 mg Oral Tablet Sustained Release 24 hr Take 1 Tab by mouth daily. 14 Tab 10/22/2016 7 fUROsemide (LASIX) 20 mg Oral Tablet TAKE ONE TABLET BY MOUTH ONCE DAILY 30 Tab 1 10/22/2016 7 documented in this encounter Plan of [...] te fUROsemide (LASIX) 20 mg Oral Tablet Take 1 Tab by mouth daily. Reorder 08/04/2016 10/22/2016 isosorbide mononitrate (IMDUR) 60 mg Oral Tablet Sustained Release 24 hr Take 1 Tab by mouth daily. Reorder 10/02/2016 10/22/2016 atorvastatin (LIPITOR) 20 mg Oral Tablet Take 1 Tab by mouth nightly. Reorder 10/02/2016 10/22/2016 documented as of this encounter Care Teams Retrimmer Relationship Specialty Start Date End Date Sharee Segovia APRN [address] [place] [address] PCP - General Nurse Practitioner-Family 09/21/16 documented as of this encounter
--- OUTSIDE RECORDS SUMMARY | 2024-02-16 14:58 | XMS_ITS | Encounter Summary ---
Author Organization [place] [address] Care Team Providers Care Behavioral Intervention Specialist Name Role Phone Sharee Segovia APRN Primary Care Provider [phone] Reason for Visit * Reason Comments Chest Pain pt was at home watch ing tv and started having chest pain, +sob, +dizzy, -n/-v , pt resides at the [facility]. Encounter Details Date Type Department Care Team (Late st Contact Info) Description 11/10/2016 1:18 PM EDT - 11/10/2016 4:03 PM EDT Emergency [address] [place] [address] Sherif Mathew [address] [address] Atypical chest pain (Primary Dx) Discharge [...] Sign Reading Time Taken Comments Blood Pressure 118/62 11/10/2016 1:25 PM EDT Pulse 55 11/10/2016 1:22 PM EDT Temperature 36.4 ??C (97.5 ??F) 11/10/2016 1:22 PM ED T Respiratory Rate 16 11/10/2016 1:22 PM EDT Oxygen Saturation 95% 11/10/2016 1:22 PM EDT Inhaled Oxygen Concentration - - Weight 114.3 kg (252 lb) 11/10/2016 1:21 PM EDT Height 174 cm (5' 8.5 ) 11/10/2016 1:21 PM EDT Body Mass Index 37.76 11/10/2016 1:21 PM EDT documented in this encounter Discharge Instructions * Attachments The following attachments cannot be sent through Care Everywhere. * NONSPECIFIC CHEST PAIN, [id number] ([place]) documented in this encounter Medications at Time [...] syringe,safetyne edle 1 mL 30 gauge x 07/21 Misc [...] Code Departure Means Destination Home or Self Penitentiary documented in this encounter Progress Notes * Darren Aranda RN - 11/10/2016 3:47 PM EDT ED CC contacted about discharge transportation for Ms Palm. ED coding file clerk Monica has called [facility] and [facility] with no luck for delivery back to [facility]. ED CC contacted the centers director at [phone] and asked how she is usually transported back. He said we should contact [facility] [employer] at [phone], they have an account with the [facility] and would bring her home. Cab set up for pickup and charge nurse informed. documented in this encounter ED Notes * Claire Villeda RN - 11/10/2016 4:03 PM EDT Cab called by rn hemodialysis charge. punch box tender spoke with facility and set up ride to go back. Pt notified of plan. * Sherif Mathew, DO - 11/10/2016 1:18 PM EDT Chief Complaint Patient presents with ??? Chest Pain pt was at home watching tv and started having chest pain, +sob, +dizzy, -n/-v , pt resides at the [facility]. 66-year-old female presents to the emergency Department chief complaint of chest pain and left arm pain. Patient reports the onset was prior to arrival while at rest. She states this occurred while sitting in a chair. She describes a sharp pain in the center of her chest with radiation to the left upper extremity. She reports associated symptoms of shortness of breath as well as nausea and sweatin g. Patient was brought to the ED by paramedics who administered 4 baby aspirin and nitroglycerin spray prior to arrival. This resolved patient's chest pain and she denies having pain at this time. She is completely asymptomatic. Patient is uncertain but believes she has a history of coronary stent placement. She states she has chronic swelling in the lower extremities which is unchanged. She denies fever, chills, or cough. No further acute concerns or complaints. History provided by: Patient Allergies Allergen Reactions ??? Compazine [Prochlorperazine Edisylate] ??? Ruthton ??? Pentazocine Hcl ??? Prochlorperazine Maleate ??? Talwin [Pentazocine Lactate] Home Medications: Prior to Admission medications Medication Sig Start Date End Date Taking? Authorizing Provider acetaminophen 325 mg Oral Tab Take 650 mg by mouth every 4 hours as needed for Pain. Yes Provider, Historical amitriptyline (ELAVIL) 75 mg Oral Tablet TAKE ONE TABLET BY MOUTH NIGHTLY 10/22/16 Yes Joanna Pierce MD ARIPiprazole (ABILIFY) 10 mg Oral Tablet Take 20 mg by mouth 2 times daily. Yes Provider, Historical aspirin 81 mg Oral Tablet, Delayed Release (E.C.) Take 81 mg by mouth daily. Yes Provider, Historical atorvastatin (LIPITOR) 20 mg Oral Tablet Take 1 Tab by mouth nightly. 10/28/16 Yes Joanna Pierce MD ferrous sulfate 325 mg (65 mg iron) Oral Tablet Take 1 Tab by mouth 2 times daily (with meals). 04/04/15 Yes Campbell Hsuton MD fUROsemide (LASIX) 20 mg Oral Tablet TAKE ONE TABLET BY MOUTH ONCE DAILY 10/22/16 Yes Joanna Pierce MD gabapentin (NEURONTIN) 100 mg Oral Capsule [...] times daily. Indications: ANXIETY Yes Provider, Historical ibuprofen (ADVIL;MOTRIN) 600 mg Oral Tablet Take 1 Tab by mouth every 6 hours as needed for Pain. 09/21/16 Yes Sharee Segovia ARNP insulin glargine (LANTUS) 100 unit/mL SubQ Solution Inject 21 units at nighttime in subcutaneous area.May substitute pens if covered by insurance 10/22/16 Yes Sharee Segovia ARNP insulin syringe,safetyneedle 1 mL 30 gauge x 07/21 [facility] Syringe 1 Syringe by [facility].(Non-Drug; Combo Route) route nightly. 08/04/16 Yes Joanna Pierce MD isosorbide mononitrate (IMDUR) 60 mg Oral Tablet Sustained Release 24 hr Take 1 Tab by mouth daily.10/28/16 Yes Joanna Pierce MD lisinopril (PRINIVIL;ZESTRIL) 5 mg Oral Tablet Take by mouth daily. Yes Provider, Historical metFORMIN (GLUCOPHAGE) 500 mg Oral Tablet Take 500 mg by mouth 2 times daily. Yes Provider, Historical metoprolol (LOPRESSOR) 50 mg Oral Tablet Take 1 Tab by mouth 2 times daily. 10/15/16 Yes Deena Waldron MD miconazole (MICATIN) 2 % Top Powder Apply topically 2 times daily for 43 days. 10/15/16 11/27/16 Yes Deena Waldron MD NIFEdipine (PROCARDIA XL) 90 mg Oral Tablet Extended Rel 24 hr Take 1 Tab by mouth daily. 06/24/16 Yes Campbell Huston MD nitroGLYCERIN (NITROSTAT) 0.4 mg SL Tablet, Sublingual Place 1 Tab under the tongue every 5 minutesas needed for Chest pain. 09/21/16 Yes Sharee Segovia ARNP pantoprazole (PROTONIX) 40 mg Oral Tablet, Delayed Release (E.C.) Take 1 Tab by mouth daily. 06/24/16 Yes Campbell Huston MD Ranolazine 1,000 mg Oral Tablet Sustained Release 12 hr Take 1,000 mg by mouth every 12 hours. 11/02/16 Yes Joanna Pierce MD risperiDONE (RISPERDAL) 1 mg Oral Tablet Take 2 mg by mouth nightly. Yes Provider, Historical roPINIRole (REQUIP) 0.5 mg Oral Tablet Take 1.5 mg by mouth nightly. Yes Provider, Historical sertraline (ZOLOFT) 100 mg Oral Tablet Take 200 mg by mouth daily. Reported on 08/12/2016 Yes Provider, Historical sitaGLIPtin (JANUVIA) 100 mg Oral Tablet Take 100 mg by mouth daily. Yes Provider, Historical buPROPion (WELLBUTRIN SR) 150 mg Oral Tablet Sustained Release 12 hr Take 150 mg by mouth daily. Provider, Historical Past Medical History: Past [...] side affected ??? Suicide attempt (HCC) ??? Yeast infection recurrent Social History: reports [...] T ENDOSCOPY; Service: Endoscopy Review of Systems Constitutional: Positive for diaphoresis. Negative for chills and fever. HENT: Negative. Eyes: Negative. Respiratory: Positive for shortness of breath. Negative for cough. Cardiovascular: Positive for chest pain and leg swelling. Negative for palpitations. Gastrointestinal: Positive for nausea. Negative for abdominal pain, diarrhea and vomiting. Genitourinary: Negative for dysuria and frequency. Musculoskeletal: Positive for arthralgias. Skin: Negative for rash. Neurological: Negative. Psychiatric/Behavioral: Negative. All other systems reviewed and are negative. Blood pressure 118/62, pulse 55, temperature 97.5 ??F (36.4 ??C), temperature source Oral, resp. rate 16, height 5' 8.5 (1.74 m), weight 252 lb (114.3 kg), SpO2 95 %. Physical Exam Constitutional: She is oriented [...] There is no tenderness. Musculoskeletal: She exhibits edema. 2+ pitting edema in the bilateral lower extremities. The patient's calves are nontender. There is no palpable cord. Lymphadenopathy: She has no cervical adenopathy. Neurological: She is alert and oriented to person, place, and time. Skin: Skin is warm and dry. No rash noted. Psychiatric: She has a normal mood and affect. Nursing note and vitals reviewed. Procedures Radiology/EKG/Labs: Results for orders placed or performed during the hospital encounter of 11/10/16 XR CHEST PA AND LATERAL Narrative TWO-VIEW CHEST, 11/10/2016 at 1420 HISTORY: -CHEST PAIN FINDINGS: Comparison 10/13/2016. Heart size is enlarged but stable. Lungs are grossly clear. Lung volumes are relatively low. Impression Stable cardiomegaly. No acute disease. CBC WITH AUTO DIFF Result Value Ref Range WBC 7.3 4.0 - 11.0 x10(3)/mcL RBC 4.15 3.80 - 5.10 x10(6)/mcL Hgb 12.1 12.0 - 15.6 gm/dL Hct 36.2 35.7 - 45.9 % MCV 87.2 82.5 - 99.8 fL MCH 29.3 27.0 - 34.3 pg MCHC 33.5 32.1 - 35.3 gm/dL RDW 14.6 11.5 - 15.0 % Platelet 148 144 - 423 x10(3)/mcL MPV 9.5 6.8 - 10.8 fL BASIC METABOLIC PANEL Result Value Ref Range Sodium 138 136 - 145 mmol/L Potassium 4.3 3.5 - 5.0 mmol/L Chloride 101 98 - 107 mmol/L Total CO2 28 22 - 29 mmol/L Anion Gap 9 7 - 16 mmol/L Calcium 9.2 8.8 - 10.2 mg/dL Glucose Lvl 134 (H) 82 - 100 mg/dL BUN 15 8 - 23 mg/dL Creatinine 1.18 0.51 - 1.30 mg/dL GFR Afr Am 56 GFR Non Afr Am 46 TROPONIN-T Result Value Ref Range Troponin-T <0.01 <=0.00 ng/mL PT / INR Result Value Ref Range PT 12.6 10.1 - 12.9 second(s) INR 1.09 0.88 - 1.12 DIFFERENTIAL Result Value Ref Range Neut Percent 67.8 % Lymph Percent 21.3 % Shoshone Percent 7.1 % Eos Percent 3.0 % Baso Percent 0.8 % Neut# 4.9 1.8 - 7.7 x10(3)/mcL Lymph# 1.6 0.6 - 4.8 x10(3)/mcL Shoshone# 0.5 0.0 - 1.3 x10(3)/mcL Eos# 0.2 0.0 - 0.5 x10(3)/mcL Baso# 0.1 0.0 - 0.2 x10(3)/mcL EK EKG 12 LEAD Narrative NOTICE: Preliminary tracing available for review; Final Interpretation by physician to follow. Impression Stationary ECG Study [facility] Interpretive Statements SINUS BRADYCARDIA LOW QRS VOLTAGE IN PRECORDIAL LEADS ANTEROSEPTAL MYOCARDIAL INFARCTION, PROBABLY OLD ED Course: Appropriate laboratory and radiology studies reviewed She presents as above. Patient has remained pain-free throughout her ED stay. She has requested. Immediately during arrival. She is provided a meal tray. She is eating comfortably and is in no acute distress during repeat evaluation. She showing a sinus bradycardia without acute ST or T-wave changes. Troponin is normal. CBC is normal. Renal function is normal. Chest x-ray read as nonacute per theradiologist. The patient appears suitable for discharge back to her residence. Her symptoms were atypical for cardiac etiology. She had a stress test performed under 4 months ago which was normal. The patient is advised to follow-up in the office of her primary care physician and is given return pre cautions at discharge. ED Clinical Impression: Atypical chest pain (primary encounter diagnosis) Critical Care time Condition at Discharge/Transfer from Department: Stable This chart was completed using voice recognition technology and may contain unintended errors Sherif Mathew DO 11/10/16 1458 documented in this encounter Plan of Treatment [...] Procedure Name Priority Date/Time Associated Diagnosis Comments XR CHEST PA AND LATERAL EMMY 11/10/2016 2:31 PM EDT SALINE LOCK IV STAT 11/10/2016 1:51 PM EDT TROPONIN-T Routine 11/10/2016 1:40 PM EDT DIFFERENTIAL STAT 11/10/2016 1:40 PM EDT PT / INR STAT 11/10/2016 1:40 PM EDT CBC WITH DIFF STAT 11/10/2016 1:40 PM EDT BASIC METABOLIC PANEL STAT 11/10/2016 1:40 PM EDT EK EKG 12 LEAD STAT 11/10/2016 1:20 PM EDT documented in this encounter Results * XR CHEST PA AND LATERAL (11/10/2016 2:31 PM EDT) Anatomical Region Laterality Modality Chest Radiographic Whit ging 11/10/2016 2:31 PM EDT Impressions 11/10/2016 2:45 PM EDT Stable cardiomegaly. No acute disease. Narrative 11/10/2016 2:45 PM EDT TWO-VIEW CHEST, 11/10/2016 at 1420 HISTORY: -CHEST PAIN FINDINGS: Comparison 10/13/2016. Heart size is enlarged but stable. Lungs are grossly clear. Lung volumes are relatively low. Procedure Note Luis E Wayne MD - 11/10/2016 TWO-VIEW CHEST, 11/10/2016 at 1420 HISTORY: -CHEST PAIN FINDINGS: Comparison 10/13/2016. Heart size is enlarged but stable. Lungs are grossly clear. Lung volumes are relatively low. IMPRESSION: Stable cardiomegaly. No acute disease. [facility] DO IMG DIAGNOSTIC IMAGING ORDERA BLES Final Result * DIFFERENTIAL (11/10/2016 1:40 PM EDT) Neut Percent 67.8 % [facility] Lymph Percent 21.3 % [facility] Shoshone Percent 7.1 % [facility] Eos Percent 3.0 % [facility] Baso Percent 0.8 % [facility] Neut# 4.9 1.8 - 7.7 x10(3)/[facility] Lymph# 1.6 0.6 - 4.8 x10(3)/[facility] Shoshone# 0.5 0.0 - 1.3 x10(3)/[facility] Eos# 0.2 0.0 - 0.5 x10(3)/mcL [facility] Baso# 0.1 0.0 - 0.2 x10(3)/[facility] Blood specimen (specimen) 11/10/2016 1:40 PM EDT 11/10/2016 1:40 PM EDT Sherif Mathew DO HEMATOLOGY ORDERABLES Final R esult Performing Organization Address [facility] de Phone Number [address] [address] * PT / INR (11/10/2016 1:40 PM EDT) Pathologist [facility] PT 12.6 10.1 - 12.9 second(s) [facility] INR 1.09 0.88 - 1.12 [facility] Comment: Level of Therapy ??Indications ??Target INR Range Standard Dose Treatment and prophylaxis of venous 2.0 - 3.0 ??thrombosis, pulmonary embolism ?High Dose High risk patients with mechanical ?2.5 - 3.5 ??heart valves Blood specimen (specimen) UPPER LIMB STRUCTURE / Unknown 11/10/2016 1:40 PM EDT 11/10/2016 1:40 PM EDT Sherif Mathew DO HEMATOLOGY ORDERABLES Final R esult Performing Organization Address [facility] de Phone Number [address] [address] * TROPONIN-T (11/10/2016 1:40 PM EDT) Pathologist [facility] Troponin-T <0.01 <=0.00 ng/mL [facility] Comment: Values > or = 0.01 ng/mL have been shown to have prognostic value. Blood specimen (specimen) 11/10/2016 1:40 PM EDT 11/10/2016 1:40 PM EDT Sherif Mathew CHEMISTRY ORDERABLES Final Re sult Performing Organization Address [facility] Co de Phone Number [facility] [address] [place] [address] * (ABNORMAL) BASIC METABOLIC PANEL (11/10/2016 1:40 PM EDT) Sodium 138 136 - 145 mmol/L [facility] Potassium 4.3 3.5 - 5.0 mmol/L [facility] Chloride 101 98 - 107 mmol/L [facility] Total CO2 28 22 - 29 mmol/L [facility] Anion Gap 9 7 - 16 mmol/L [facility] Calcium 9.2 8.8 - 10.2 mg/dL [facility] Glucose Lvl 134(H) 82 - 100 mg/dL [facility] BUN 15 8 - 23 mg/dL [facility] Creatinine 1.18 0.51 - 1.30 mg/dL [facility] GFR Afr Am 56 [facility] GFR Non Afr Am 46 [facility] Blood specimen (specimen) UPPER LIMB STRUCTURE / Unknown 11/10/2016 1:40 PM EDT 11/10/2016 1:40 PM EDT Sherif Mathew CHEMISTRY ORDERABLES Edited R esult - Final Performing Organization Address City/[facility]/ZIP Co de Phone Number [facility] [address] [place] [address] * CBC WITH AUTO DIFF (11/10/2016 1:40 PM EDT) WBC 7.3 4.0 - 11.0 x10(3)/mcL [facility] RBC 4.15 3.80 - 5.10 x10(6)/mcL [facility] Hgb 12.1 12.0 - 15.6 gm/dL [facility] Hct 36.2 35.7 - 45.9 % [facility] MCV 87.2 82.5 - 99.8 fL [facility] MCH 29.3 27.0 - 34.3 pg [facility] MCHC 33.5 32.1 - 35.3 gm/dL [facility] RDW 14.6 11.5 - 15.0 % [facility] Platelet 148 144 - 423 x10(3)/mcL [facility] MPV 9.5 6.8 - 10.8 fL [facility] Blood specimen (specimen) UPPER LIMB STRUCTURE / Unknown 11/10/2016 1:40 PM EDT 11/10/2016 1:40 PM EDT Sherif Mathew DO HEMATOLOGY ORDERABLES Final R esult Performing Organization Address [facility]/State/ZIP Co de Phone Number [address] [phone] * EK EKG 12 LEAD (11/10/2016 1:20 PM EDT) Anatomical Region Laterality Modality Electrocardiogra phy 11/10/2016 1:29 PM EDT Impressions 11/10/2016 6:25 PM EDT ? [facility] ? [facility] ? Interpretive Statements ? SINUS BRADYCARDIA LOW QRS VOLTAGE IN PRECORDIAL LEADS ANTEROSEPTAL MYOCARDIAL INFARCTION, PROBABLY OLD No acute ST-T wave abnormality Compared to previous EKG, heart rate is slower, no other significant change. Correlate clinically. Electronically Signed On 11-10-2016 18:25:01 EDT by Herminio Avitia MD Narrative Procedure Note Herminio Avitia MD - 11/10/2016 IMPRESSION Stationary ECG Study [facility] Interpretive Statements SINUS BRADYCARDIA LOW QRS VOLTAGE IN PRECORDIAL LEADS ANTEROSEPTAL MYOCARDIAL INFARCTION, PROBABLY OLD No acute ST-T wave abnormality Compared to previous EKG, heart rate is slower, no other significantchange. Correlate clinically. Electronically Signed On 11-10-2016 18:25:01 EDT by Herminio Avitia MD us Sherif Mathew DO IMG ECG ORDERABLES Final Resu lt documented in this encounter Visit Diagnoses Diagnosis Atypical chest pain- Primary Other chest pain documented in this encounter Administered Medications Inactive Administered Medications - up to 1 most recent administrations Medication Order MAR Action Action Date Dose Rate Site sodium chloride 0.9% IV line flush 50 mL 50 mL, Intravenous, at 999 mL/hr, PRN, Starting on Wed11/10/16 at 1351, Until Wed11/10/16 at 2007, Line Care, Flush with 50 mL after IVPB to insure complete administration of the dose. May use the saline infusion to back flush IVPB tubing as needed., Use this order to document priming and flushing IV line after medication administration. sodium chloride 0.9% syringe 5-10 mL 5-10 mL, Intravenous, PRN, Starting on Wed11/10/16 at 1351, Until Wed11/10/16 at 2007, Line Care, Flush with 5 mL saline pre/post IVP, and 5 mL prior to IVPB or blood product administration. Protocol for PERIPHERAL IV saline lock maintenance, flush with 3-5 mL saline syringe every 8 hours., Flush every shift or after IV medication documented in this encounter Active and Recently Administered Medications Times are shown in EDT. PRN Medication Order 11/08/2016 11/09/2016 11/10/2016 sodium chloride 0.9% IV line flush 50 mL 50 mL, Intravenous, at 999 mL/hr, PRN, Starting on Wed11/10/16 at 1351, Until Wed11/10/16 at 2007, Line Care, Flush with 50 mL after IVPB to insure complete administration of the dose. May use the saline infusion to back flush IVPB tubing as needed., Use this order to document priming and flushing IV line after medication administration. sodium chloride 0.9% syringe 5-10 mL 5-10 mL, Intravenous, PRN, Starting on Wed11/10/16 at 1351, Until Wed11/10/16 at 2007, Line Care, Flush with 5 mL saline [...] 0.9% IV line flush 50 mL 1 11/10/2016 sodium chloride 0.9% syringe 5-10 mL 1 07/2016 IV Count Last Ordered Date First Orde red Date SALINE LOCK IV 1 11/10/2016 documented in this encounter Care Teams Behavioral Intervention Specialist Relationship Specialty Start Date End Date Sharee Segovia APRN [address] [place], [place] [phone] PCP - General Nurse Practitioner-Family 09/21/16 documented as of this encounter
--- OUTSIDE RECORDS SUMMARY | 2024-02-16 14:58 | XMS_ITS | Encounter Summary ---
Author Organization [place] [address] Care Team Providers Care Physician Chief Of Pathology Name Role Phone Sharee Segovia APRN Primary Care Provider [phone] Reason for Visit * Reason Onset Date Comments Care Transition 10/16/2016 Care Management - Chart Review 10/16/2016 Hospital Follow Up 10/16/2016 Encounter Details Date Type Department Care Team (Late st Contact Info) Description 10/16/2016 Patient Outreach [facility] [address] [place] [address] Viktoriya Pizarro LPN Care Transition; Care [...] Progress Notes * Viktoriya Sevilla LPN - 10/16/2016 1:36 PM EDT Hospital Discharge on 10/14/16 related to Angina pectoris (HCC does not meet the criteria for [facility] to follow at this time patient to remain a Level 1. documented in this encounter Miscellaneous Notes * Patient Instructions - Yael Haddad CCMA - 10/16/2016 1:47 PM EDT Left message to call office if no better documented in this encounter Plan of Treatment [...] on filedocumented in this encounter Care Teams Physician Chief Of Pathology Relationship Specialty Start Date End Date Sharee Segovia APRN [address] [place] [phone] PCP - General Nurse Practitioner-Family 09/21/16 documented as of this encounter
--- OUTSIDE RECORDS SUMMARY | 2024-02-16 14:58 | XMS_ITS | Encounter Summary ---
Author Organization [place] [address] Care Team Providers Care Museum Or Zoo Director Name Role Phone Sharee Segovia APRN Primary Care Provider [phone] Reason for Visit * Reason Onset Date Comments Care Transition 11/11/2016 Care Management - Chart Review 11/11/2016 ED Follow-Up Call 11/11/2016 Encounter Details Date Type Department Care Team (Late st Contact Info) Description 11/11/2016 Patient Outreach [facility] [address] [place] [address] Viktoriya Pizarro LPN Care Transition; Care Management - Chart Review; ED Follow-Up [...] Progress Notes * Viktoriya Sevilla LPN - 11/11/2016 8:44 AM EDT Patient's chart reviewed related to recent ED discharge on 11/10/16 with a diagnosis of Atypical chest pain (primary encounter diagnosis. Patient is not a candidate for [facility] [...] on filedocumented in this encounter Care Teams Museum Or Zoo Director Relationship Specialty Start Date End Date Sharee Segovia APRN [address] [place] [phone] PCP - General Nurse Practitioner-Family 09/21/16 documented as of this encounter
--- OUTSIDE RECORDS SUMMARY | 2024-02-16 14:58 | XMS_ITS | Encounter Summary ---
Author Organization [place] [address] Care Team Providers Care Parts Driver Name Role Phone Sharee Segovia APRN Primary Care Provider [phone] Reason for Visit * Reason Comments Medication Refill Encounter Details Date Type Department Care Team (Late st Contact Info) Description 10/28/2016 Refill [facility] [address] [place] [address] Joanna Hitchcock MD Medication Refill [...] Start Date End Date isosorbide mononitrate (IMDUR) 60 mg Oral Tablet Sustained Release 24 hr Take 1 Tab by mouth daily. 14 Tab 10/28/2016 03/24/2017 atorvastatin (LIPITOR) 20 mg Oral Tablet Take 1 Tab by mouth nightly. 14 Tab 10/28/2016 03/24/2017 documented in this encounter Plan of Treatment [...] Take 1 Tab by mouth nightly. Reorder 10/22/2016 10/28/2016 isosorbide mononitrate (IMDUR) 60 mg Oral Tablet Sustained Release 24 hr Take 1 Tab by mouth daily. Reorder 10/22/2016 10/28/2016 documented as of this encounter Care Teams Parts Driver Relationship Specialty Start Date End Date Sharee Segovia APRN [address] [place] [phone] PCP - General Nurse Practitioner-Family 09/21/16 documented as of this encounter
--- OUTSIDE RECORDS SUMMARY | 2024-02-16 14:58 | XMS_ITS | Encounter Summary ---
Author Organization [place] [address] Care Team Providers Care Auto Accessories Installer Name Role Phone Sharee Segovia APRN Primary Care Provider [phone] Reason for Visit * Reason Onset Date Comments Care Management - Chart Review 10/16/2016 h ospital discharge review Encounter Details Date Type Department Care Team (Late st Contact Info) Description 10/16/2016 Patient Outreach SEP [facility] [address] [place] [address] Jemima Ramon, RN Care Management - Chart Review (hospital discharge review) Social History Tobacco Use Types Packs/Day Years [...] as of this encounter Progress Notes * Jemima Ramon, RN - 10/16/2016 9:50 AM EDT CTT reviewed patient's discharge information and is not a candidate to be followed by CTT at this time. Patient discharged to [facility]. Patient appropriate MD level 1. documented in this encounter Plan of [...] on filedocumented in this encounter Care Teams Auto Accessories Installer Relationship Specialty Start Date End Date Sharee Segovia APRN [address] [place] [phone] PCP - General Nurse Practitioner-Family 09/21/16 documented as of this encounter
--- OUTSIDE RECORDS SUMMARY | 2024-02-16 14:58 | XMS_ITS | Encounter Summary ---
Author [place] [address] Care Team Providers Care Shaping Machine Tender Name Role Phone Sharee Segovia NIKO Primary Care Provider [phone] Reason for Visit * Reason Comments Chest Pain Arrived via [facility] 4 Baby Asa, 3 Nitro given via Squad * Auth/Cert/Inpt Specialty Diagnoses / Procedures Referred By Contac t Referred To Contact Diagnoses Chest pain, unspecified type Referral ID Status Reason Start Date Expiration Date Visits Re quested Visits Authorized [id number] 1 1 Encounter Details Date Type Department Care Team (Late st Contact Info) Description 10/15/2016 11:00 AM EDT - 10/15/2016 12:00 PM EDT Surgery EDG CONCRETE TESTER [facility] [place] [address] Kaushik Perea MD [address] [place] [address] [place] [address] CORONARY ANGIOGRAM / CARDIAC CATHETERIZATION Surgery Details Date/Time Status Location OR Service Patient Class Case Class Case Type Trauma Case? 10/15/2016 11:00 AM Posted EDG CARDIAC CONCRETE TESTER IMAGING EDG CCL 2 Cardiac Inpatient N/A Panel 1 Procedure LRB Anes Op Region Wound Class Comments CORONARY ANGIOGRAM / CARDIAC CATHETERIZATION N/A Moderate Sedation CORONARY ANGIOGRAM / CARDIAC CATHETERIZATION [[id number]] LEFT VENTRICULOGRAM N/A Moderate Sedation LEFT HEART CATHETERIZATION N/A Moderate Sedation Surgeon Surgeon Role Service Panel Kaushik Perea MD Primary Cardiac 1 documented in this [...] Sign Reading Time Taken Comments Blood Pressure 144/73 10/15/2016 10:34 AM EDT Pulse 60 10/15/2016 10:34 AM EDT Temperature 37.2 ??C (98.9 ??F) 10/15/2016 8:02 AM ED T Respiratory Rate 10 10/15/2016 10:34 AM EDT Oxygen Saturation 90% 10/15/2016 10:34 AM EDT Inhaled Oxygen Concentration - - Weight 116.1 kg (256 lb) 10/13/2016 3:33 PM EDT Height 172.7 cm (5' 8 ) 10/13/2016 3:33 PM EDT Body Mass Index 38.92 10/13/2016 3:33 PM EDT documented in this encounter Discharge Summaries * Deena Waldron MD - 10/15/2016 2:46 PM EDT [facility] Discharge Summary Patient Name: Faby Palm : 1950 Admit Date: 10/13* Discharge Date: 10/15/2016 Admitting Physician: Deena Waldron MD Discharging Physician: Deena Waldron MD Reason for Hospitalization: Active Hospital Problems Mood disorder (HCC) *Angina pectoris (HCC) Chronic diastolic CHF (congestive heart failure) (HCC) Coronary artery disease involving [place] coronary artery of [place] heart with unstable angina pectoris (HCC) Hemiparesis affecting left side as late effect of stroke (HCC) History of CVA (cerebrovascular accident) Essential hypertension Brief Hospital Summary: Admitted with chest pain. Troponins x 3 were negative, EKG was unchanged from prior. She had a negative stress in July and an angiogram in December 2015 that showed Mid LAD of approximately 70% but difficult to quantify due to discrete lesion at point of trifurcation with a non flow limiting lesion based on FFR of 0.92. Cardiology was consulted and they increased her ranexa to 1000 mg BID and she underwent a repeat angiogram that showed Mid LAD 50-60% stenosis, Ostial RCA 50% stenosis.200mcg of IC NTG administered and angiogram performed. The ejection fraction is greaterthan 55% by visual estimate. Her metoprolol was also increased to 50 mg BID. Her creatinine did increase mildly to 1.63 on discharge. Patient was informed to hold her metforminfor 3 days on discharge. She also had mildly elevated potassium on discharge with a K of 5.1. She was instructed to hold her lisinopril for 3 days on discharge. Would recommend repeat BMP in 3 days. Name of Consultants: Treatment Team: Consulting Physician: Tr Wayne MD Procedures Performed: As above Discharge Exam: Physical Exam Constitutional: She is well-developed, well-nourished, and in no distress. HENT: Head: Normocephalic and atraumatic. Cardiovascular: Normal rate, regular rhythm and normal heart sounds. Pulmonary/Chest: Effort normal and breath sounds normal. No respiratory distress. Abdominal: Soft. Bowel sounds are normal. She exhibits no distension. There is no tenderness. Musculoskeletal: She exhibits no edema. Neurological: She is alert. Skin: She is not diaphoretic. Correct Full Discharge Med List: Medication List CHANGE how you take these medications insulin glargine 100 unit/mL Soln Qty: 10 mL Refills: 3 Commonly known as: LANTUS Inject 18 units at nighttime in subcutaneous area.May substitute pens if covered by insurance What changed: how much to take how to take this when to take this additional instructions metoprolol 50 mg Tab Dose: 50 mg Qty: 60 Tab Refills: 0 Commonly known as: LOPRESSOR 50 mg, Oral, 2 TIMES DAILY What changed: See the new instructions. Ranolazine 1,000 mg Tb12 Dose: 1000 mg Qty: 60 Tab Refills: 0 Commonly known as: RANEXA 1,000 mg, Oral, EVERY 12 HOURS SCHEDULED What changed: medication strength how much to take Another medication with the same name was removed. Continue taking this medication, and follow the directions you see here. CONTINUE taking these medications acetaminophen 325 mg Tab Dose: 650 mg Refills: 0 Commonly known as: TYLENOL ARIPiprazole 10 mg Tab Dose: 20 mg Refills: 0 Commonly known as: ABILIFY aspirin 81 mg Tbec Dose: 81 mg Refills: 0 atorvastatin 20 mg Tab Dose: 20 mg [...] 30 Tab Refills: 1 Commonly known as: LASix 20 mg, Oral, DAILY gabapentin 100 mg Cap Dose: 100 mg Refills: 0 Commonly known as: NEURONTIN glipiZIDE 10 mg Tab Dose: 10 mg Refills: 0 Commonly known as: GLUCOTROL hydrOXYzine 25 mg Tab Dose: 25 mg Refills: 0 Commonly known as: ATARAX ibuprofen 600 mg Tab Dose: 600 mg Qty: 160 Tab Refills: 2 Commonly known as: ADVIL;MOTRIN 600 mg, Oral, EVERY 6 HOURS PRN insulin syringe,safetyneedle 1 mL 30 gauge x 5/16 Syrg Dose: 1 Syringe Qty: 30 Syringe Refills: 1 1 Syringe, Misc.(Non-Drug; Combo Route), NIGHTLY isosorbide mononitrate 60 mg Tb24 Dose: 60 mg Qty: 14 Tab Refills: 0 Commonly known as: IMDUR 60 mg, Oral, DAILY lisinopril 5 mg Tab Refills: 0 Commonly known as: PRINIVIL;ZESTril metFORMIN 500 mg Tab Dose: 500 mg Refills: 0 Commonly known as: GLUCOPHAGE NIFEdipine 90 mg Tr24 Dose: 90 mg Qty: 30 Tab Refills: 1 Commonly known as: PROCARDIA XL 90 mg, Oral, DAILY nitroGLYCERIN 0.4 mg Subl Dose: 0.4 mg Qty: 20 Tab Refills: 0 Commonly known as: NITROSTAT 0.4 mg, Sublingual, EVERY 5 MIN PRN pantoprazole 40 mg Tbec Dose: 40 mg Qty: 30 Tab Refills: 1 Commonly known as: PROTONIX 40 mg, Oral, DAILY risperiDONE 1 mg Tab Dose: 2 mg Refills: 0 Commonly known as: RisperDAL roPINIRole 0.5 mg Tab Dose: 1.5 mg Refills: 0 Commonly known as: REQUIP sertraline 100 mg Tab Dose: 200 mg Refills: 0 Commonly known as: ZOLOFT sitaGLIPtin 100 mg Tab Dose: 100 mg Refills: 0 Commonly known as: JANUVIA STOP taking these medications amitriptyline 75 mg Tab Commonly known as: ELAVIL venlafaxine 150 mg Cp24 Commonly known as: EFFEXOR-XR Where to Get Your Medications These medications were sent to [id number] [place] [address] - [address] [facility] -[phone] [address] [facility] [id number] metoprolol 50 mg Tab Ranolazine 1,000 mg Tb12 Condition at Discharge: good Disposition: Home Follow-up: Sharee Segovia, JEAN-PAUL [address] [place] [address] In 3 days Labs and imaging follow-up needed: repeat BMP in 3 days Deena Waldron MD 10/15/2016 documented in this encounter Discharge Instructions * Discharge Instructions* Deena Waldron MD - 10/15/2016 2:54 PM EDT DO NOT TAKE YOUR LISINOPRIL AND METFORMIN ON DISCHARGE. OKAY TO RESTART IN 3 DAYS. * Attachments The following attachments cannot be sent through Care Everywhere. * NONSPECIFIC CHEST PAIN (OMANI) * ANGIOGRAM, CARE AFTER, [id number] (OMANI) documented in this encounter Medications at Time [...] Pain. 160 Tab 2 09/21/2016 7 insulin syringe,safetyne edle 1 mL 30 [...] daily. 7 documented as of this encounter Ordered Prescriptions Prescription Sig Dispense Quantity Refills Last Filled Start Date End Date miconazole (MICATIN) 2 % Top Powder Apply topically 2 times daily for 43 days. 30 g 10/15/2016 7 Ranolazine 1,000 mg Oral Tablet Sustained Release 12 hr Take 1,000 mg by mouth every 12 hours. 60 Tab 10/15/2016 7 metoprolol (LOPRESSOR) 50 mg Oral Tablet Take 1 Tab by mouth 2 times daily. 60 Tab 10/15/2016 7 documented in this encounter Discharge Disposition Disposition Code Departure Means Destination Comment s Home or Self Retirement home via cab documented in this encounter Progress Notes * Jesica Osorio RN - 10/15/2016 7:14 PM EDT Discharge instructions given to and signed by patient. Patient transported by cab. * Nubia Boyd RN - 10/15/2016 3:44 PM EDT 10/15/16 1542 Assessment Complete Actual Discharge Plan 10/15/16 PT to go back to [facility] by cab that they will pay for per health called set up cab to meet pt at main entrace of the hospital at 1900 pm pt awre rn jesica [employer] internship aware * Nubia Boyd RN - 10/15/2016 3:06 PM EDT 10/15/16 1456 Assessment Complete Actual Discharge Plan 10/15/16 CC called [facility] [phone] left voice mail message that pt was ready for discharge also call the directors number at [phone] could not leavea voice message as mailbox was full * Bertram Harvey APRN - 10/15/2016 1:43 PM EDT Heart & Vascular Progress Note PATIENT: Faby Palm Primary Carton Forming Machine Helper: Dr. guardado She has been in the hospital for LOS: 0 days Patient presents to the hospital for: Chief Complaint Patient presents with ??? Chest Pain Arrived via [facility] 4 Baby Asa, 3 Nitro given via Squad Cardiology following for: Chest pain Subjective: Feels ok s/p angio today. No further CP. Objective: Vitals: 10/15/16 1334 BP: 129/63 Pulse: 55 Resp: 16 Temp: 97.7 ??F (36.5 ??C) SpO2: 96% Telemetry: SR Exam: Pt in no distress. Lymph/Neck supple, no enlarged nodes or masses CVS - S1, S2 RRR, no edema RS - No rales, no rhonchi GI/Abd - soft, NT, +BS Neuro- Alert and oriented Psych- Mood and affect appropriate Skin warm, dry, no rashes Angio site stable Medication: ??? ARIPiprazole 30 mg Oral Daily ??? aspirin 81 mg Oral Daily ??? atorvastatin 20 mg Oral Nightly ??? buPROPion 150 mg Oral Daily ??? fentaNYL 50 mcg Intravenous Once ??? fUROsemide 20 mg Oral Daily ??? gabapentin 100 mg Oral TID ??? glipiZIDE 10 mg Oral BID WM ??? heparin, porcine (PF) 5,000 Units Subcutaneous 3 times per day ??? insulin aspart 1-5 Units Subcutaneous QID WM ??? insulin glargine 15 Units Subcutaneous QPM (Insulin) ??? isosorbide mononitrate 60 mg Oral Daily ??? lisinopril 5 mg Oral Daily ??? metoprolol 50 mg Oral BID ??? NIFEdipine 90 mg Oral Daily ??? pantoprazole 40 mg Oral Daily ??? ranolazine 1,000 mg Oral 2 times per day ??? sodium chloride 150 mL/hr at 10/15/16 1230 ??? sodium chloride Stopped (10/15/16 1230) acetaminophen, atropine, dextrose, dextrose, EPINEPHrine injection, glucagon (human recombinant), LORazepam, metoclopramide HCl, nitroGLYCERIN, ondansetron OR ondansetron, oxyCODONE-acetaminophen, sodium chloride 0.9%, sodium chloride 0.9% Labs & Studies: All pertinent labs & radiologic studies for the past 24 hours have been reviewed Assessment & Plan: 1. CP: -resolved Dull pressure, heavy sensation perist -trop < 0.01 x 3 -no ischemic EKG shifts Stress test 08-01-16--> neg for ischemia, EF 65% ? 2. CAD -angio this adm w unchanged cors- med management [facility] 03-30-15 Left Anterior Descending Mid LAD lesion 70% stenosed. The lesion is discrete. The stenosis was measured by a visual reading.Pressure wire/FFR was performed on the lesion. FFR: 0.92. Maximum hyperemia was achieved through IVadenosine Very discrete mid LAD at trifurcation of diagonal and septal branches -cont ASA, BB, Lipitor and Ranexa -plan as per above ?? 3. HTN -labile BP 131/63 -160/62 - Lopressor to 50 mg BID Monitor HR Cautious to increase ARABELLA- 2/2 Cr of 1.5 -cont procardia and Lisinopril ?? 4. Aflutter: h/o -s/p ablation 12-31-15 ( dr Tee) -maintaining SR -off AC -CHADSVASC score 8 5. DM -per primary care ?? 6. CVA, h/o -residual left hemiparesis -cont ASA ?? 7. CHF -chronic diastolic LV dysfunction: EF 65% Echo 06/23/2016 -compensated -cont Lasix, Lisinopril Watch renal Stop NSAIDS ?? 8. Mood disorder -per primary care Plan: Stable from cardiology Cont higher BB & Ranexa doses Further input from Dr Perea. Bertram Harvey APRN Cosigned by Kaushik Perea MD at 11/11/2016 12:57 PM EDT * Eliza Jung RN - 10/14/2016 9:57 PM EDT Sent message to [employer]. Patient complaining of headache. Gave 650 mg of tylenol, but patientsaid it is not helping. * Deena Waldron MD - 10/14/2016 3:09 PM EDT Faby Palm admitted with angina pectoris. LOS: 0 days SUBJECTIVE: Hospital day 0. Nursing notes reviewed. Continues to have a heaviness in her chest. OBJECTIVE: Current medication list reviewed. ??? ARIPiprazole 30 mg Oral Daily ??? aspirin 81 mg Oral Daily ??? atorvastatin 20 mg Oral Nightly ??? buPROPion 150 mg Oral Daily ??? fUROsemide 20 mg Oral Daily ??? gabapentin 100 mg Oral TID ??? glipiZIDE 10 mg Oral BID WM ??? insulin aspart 1-5 Units Subcutaneous QID WM ??? insulin glargine 15 Units Subcutaneous QPM (Insulin) ??? isosorbide mononitrate 60 mg Oral Daily ??? lisinopril 5 mg Oral Daily ??? metoprolol 50 mg Oral BID ??? NIFEdipine 90 mg Oral Daily ??? pantoprazole 40 mg Oral Daily ??? ranolazine 1,000 mg Oral 2 times per day Continuous Infusions: VITALS: Patient Vitals for the past 24 hrs: BP Temp Temp src Pulse Resp SpO2 Height Weight 10/14/16 1507 112/63 99.1 ??F (37.3 ??C) Oral 61 20 95 % - - 10/14/16 1159 142/69 99.3 ??F (37.4 ??C) Oral 62 20 91 % - - 10/14/16 0815 160/62 98.6 ??F (37 ??C) Oral 82 20 93 % - - 10/14/16 0524 171/68 98.4 ??F (36.9 ??C) Oral 83 20 96 % - - 10/13/16 2336 136/60 - - 70 20 91 % - - 10/13/16 1936 127/52 98 ??F (36.7 ??C) Oral 60 18 99 % - - 10/13/16 1800 (!) 146/98 - - - 18 - - - 10/13/16 1717 - - - 56 16 97 % - - 10/13/16 1700 122/70 - - 57 14 95 % - - 10/13/16 1533 131/63 98.1 ??F (36.7 ??C) Oral 61 18 94 % 5' 8 (1.727 m) 256 lb (116.1 kg) I/O: No intake/output data recorded. Constitutional: Alert, calm, cooperative. Respirations nonlabored. HEENT: Normocephalic. Mucous membranes moist. No nasal discharge. Cardiovascular: Regular rhythm, normal rate. No murmurs or rubs. Respiratory: Clear lung collins with no rhonchi, crackles, or wheezes. Full air movement bilaterally. Gastrointestinal: No tenderness or masses. Abdomen nondistended. No guarding or rebound. Normal bowel sounds. Extremities: No ankle edema. Neurological: Alert. No focal motor deficits. Labs: Pertinent laboratory results reviewed. Lab Results Component Value Date GLU 250 (H) 10/14/2016 NA 142 10/14/2016 K 4.7 10/14/2016 CO2 26 10/14/2016 CL 101 10/14/2016 BUN 22 10/14/2016 CREATININE 1.50 (H) 10/14/2016 Lab Results Component Value Date WBC 7.4 10/14/2016 HGB 12.9 10/14/2016 HCT 38.6 10/14/2016 MCV 87.7 10/14/2016 PLT 154 10/14/2016 Radiology: Recent radiology studies and results reviewed. ASSESSMENT AND PLAN: *Angina pectoris (HCC) - trop x 1 <0.01, will trend - EKG - 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 MYOCARDIAL INFARCTION, PROBABLY OLD no diagnostic change other than rate - neg stress in July - ASA, statin, nitro - angiogram in December 2015 - Mid LAD of approximately 70% but difficult to quantify due to discrete lesion at point of trifurcation with a non flow limiting lesion based on FFR of 0.92 - consulted cardiology - unsure if actually taking imdur or ranexa - will restart - cardiology increased ranexa JACK ([facility]) - bump in creatinine to 1.5 - will start IVF - check UA ?? Chronic diastolic CHF (congestive heart failure) ([facility]) - echo in July - EF 55-60% - does not appear decompensated at this time - continue lasix, ACEI ?? Coronary artery disease involving [place] coronary artery of [place] heart with unstable angina pectoris (HCC) - angiogram in December showed LAD lesion - ASA, statin, ACEI, BB, imdur, ranexa (increased to 1000 mg BID per cards recs) ?? Hemiparesis affecting left side as late effect of stroke ([facility])/History of CVA (cerebrovascular accident) - ASA, statin ?? Essential hypertension - lasix, lisinopril, metoprolol (increased to 50 mg BID), nifedipine ?? Mood disorder (HCC) - abilify, wellbutrin - unsure if also on risperdal and effexor, will hold for now ?? DM (HCC) - lantus 15 units - SSI - hold metformin - glipizide PLAN: await cards eval, increase ranexa and metoprolol per cards recs, check UA, start IVF, monitorkidney function Deena Waldron MD 10/14/2016 3:09 PM * Elvira Moscoso RN - 10/14/2016 2:58 PM EDT Pt resting comfortably in bed. A&O VSS. Pt has no complaints of pain at this time however is agitated that she cannot eat yet. NIKO Harvey contacted about whether or not pt can eat. Per NIKO Anderson pt can eat once MD Perea ok's it. NIKO Harvey contacting MD Perea to ask about diet order. Will continue to monitor and assess. * Nubia Boyd RN - 10/14/2016 10:12 AM EDT 10/14/16 1005 Assessment Complete Actual Discharge Plan 10-14-16 CC initial assessment met with the patient at the bedside she lives [facility] she needs assistance she uses a walker [facility] he will send a cab after me on disposition Completed by CC/SW Yes Discharge to Assisted living Care Coordination Assessment Observation Information Provided to Patient/Family Yes form signed Assessed In person interview with patient Mental Status Alert and oriented Does patient need hydrography teacher? No Decision Maker Him/Herself Activities of Daily Living Needs Assistance Living Arrangements Jail/Assisted Living Where did the patient come from? Senior Housing Type of Home Care Services None Recent decline in your ability to care for yourself physically? No DME Currently Used Walker Financial Concerns No Obtain prescription meds at discharge? Medicare D/Medicaid Obtain follow up care after discharge? PCP office Transportation at discharge Private Pay Cab Discussed discharge plan with patient/family Yes Agency/Facility Options Offered, list provided Yes * Marcio De León RN - 10/13/2016 10:29 PM EDT Patient admitted to unit. RN explained smoking policy, handwashing, hourly rounding, GWN, and call light function. Admission packet given to pt. Patient resting, call light within reach. * Marta Calderón RN - 10/13/2016 5:52 PM EDT 10/13/16 2879 ED Screening ED Screening Completed Initial screening complete, post-acute needs identified, assessment to follow (FROM [facility]) Medical Record Reviewed Yes Who you interviewed In person interview with patient;Medical Record review, patient/family unavailable What brought the patient to the ED CHEST PAIN FROM [facility]IST[facility]IVING USES 2WW AND LEFT LOWER LEG/ANKLE BRACE TO AMBULATE HAS PCP RX COVERAGE STAFF ASSISTS WITH ADLS AND ADMINISTERS MEDS TO PT N FACILITY HAS TRANSPORTATION AT D/C? Where did the patient come from? Assisted Living;[facility] Support [facility] Children Activities of Daily Living Needs Assistance Mental Status Alert and oriented Issues with non-compliance No Anticipated post-acute care needs Assisted Living Potential barriers to discharge No Observation Information Provided to Patient/Family Yes form signed (D/W PT NO C/O SIGNED COPY TO ED CHART STAFF AT [facility] GIVES PT HER MEDS) documented in this encounter H&P Notes * Kaushik Perea MD - 10/15/2016 11:25 AM EDT PHYSICIAN IMMEDIATE PRE-PROCEDURE UPDATE H&P and SEDATION ASSESSMENT Risks, benefits, potential complications and alternatives have been discussed with patient and/or patient's legal authorized service representative. HISTORY AND PHYSICAL H&P is less [...] gastric emptying. Date of last liquid consumption: 10/15/16 (water with am meds) Time of last liquid consumption: 904 Date of last solid food consumption: 10/14/16 Time of last solid food consumption: 1999 Comment: Patient has no previous adverse experience to anesthesia. Comment: Vital Signs: Temp: 98.9 ??F (37.2 ??C) Pulse: 60 Resp: 10 BP: 144/73 SpO2: 90 % Comment: Patient's pain has been assessed and based on patient report consideration has been given as to howit might alter the patient's sedation plan. Comment: Patient's airway has been assessed and consideration has been given as to how it might alter the patient's response to sedation. Mallampati Score: IV (only hard palate visible) Height: 5' 8 (172.7 cm) Weight: 256 lb (116.1 kg) BMI (Calculated): 39 Comment: Allergies Allergen Reactions ??? Compazine [Prochlorperazine Edisylate] ??? Pana ??? Pentazocine Hcl ??? Prochlorperazine Maleate ??? Talwin [Pentazocine Lactate] Source Note - Kaushik Perea MD - 10/14/2016 9:01 AM EDT Cardiology History and Physical: Faby Palm Today's Date: 10/14/2016 Date of Admission: 10/13/2016 Primary Care Provider: Sharee Segovia ARNP Carton Forming Machine Helper: None in the office PMH: CAD, HTN, DM, CVA, HLD, CHF, AFL s/p ablation SH: non smoker, no ETOH Cardiac procedures: Stress test 08-01-16: neg for ischemia, EF 65% [facility] 10-23-16 Mid LAD lesion 70% stenosed. The lesion is discrete. The stenosis was measured by a visual reading. Pressure wire/FFR was performed on the lesion. FFR: 0.92. Maximum hyperemia was achieved through IV adenosine Very discrete mid LAD at trifurcation of diagonal and septal branches Chief Complaint: CP History of Present Illness: Patient is a 66 y.o. female who presented to the ER w acute CP and pressure. Pt was sitting in chair watching TV w abrupt sensation of MS CP, pressure and heaviness like someone was sitting on my chest . Cp, pressure a/w SOB, dizziness, nausea and mild diaphoresis. CP was constant in nature for over an hour a/w radiating left jaw and left arm pain. Similar pattern back in 2016 a/w her [facility]. Pt describes similar pattern of CP over the past several weeks. Typically resolves on its own or w SL NTG. Arrival ER, SR on tele EKG old inferior, anterior w no acute ischemic shifts initial Trop < 0.01 Cr 1.50 BP 131/63 Review of Systems: Constitutional: No fever, chills, or sweats. No weight loss. No activity changes ?? Eyes: No visual disturbance ?? HENT: No headache, hearing loss, epistaxis, sore throat, or hoarseness ?? Lungs: No cough, hemoptysis, or pleuritic chest pain ?? Cardiovascular: No PND or orthopnea. No palpitations, dizziness. No Syncope ?? Endocrine: No polyuria, polydypsia, or polyphagia. \ ?? GI: No abdominal pain, vomiting, hematemesis, diarrhea, constipation, melena, hematochezia, or bright red blood per rectum ?? : No dysuria, frequency, hesitancy, or gross hematuria ?? Musculoskeletal: No myalgias or muscle weakness. No gait changes ?? Neurologic: ?? Skin: No jaundice, or skin rash ?? Hematologic/Allergic: No history of blood clots, bleeding or easy bruising Integument: NO rashes Neurologic: Alert & oriented x 3, No gross focal deficits noted Psychiatric: Speech and behavior appropriate . No agitation, depression r anxiety Medical History: Past Medical History: Diagnosis Date ??? Atrial flutter (HCC) EPS, AFL Ablation on 12/31/[address] Tee ??? CHF (congestive heart failure) (HCC) ??? COPD (chronic obstructive pulmonary disease) (HCC) ??? DDD (degenerative disc disease) ??? Diabetes mellitus (HCC) ??? Hypertension ??? RLS (restless legs syndrome) ??? Stroke (HCC) 2010 left side affected ??? Suicide attempt (HCC) ??? Yeast infection recurrent Surgical History: Past Surgical History: Procedure Laterality Date ??? ABLATION OF DYSRHYTHMIC FOCUS 12/31/2015 atrial fl[address] ablation by Dr. Tee ??? ANKLE SURGERY ??? BREAST SURGERY ??? JOINT REPLACEMENT left total knee replacement 1999 ??? LUNG SURGERY ??? ORTHOPEDIC SURGERY ??? TONSILLECTOMY ??? UPPER GASTROINTESTINAL ENDOSCOPY N/A 04/03/2015 ESOPHAGOGASTRODUODENOSCOPY WITH BIOPSY AND BRUSHING; Surgeon: Be Brown MD; Location: [facility]; Service: Endoscopy Allergies: Allergies Allergen Reactions ??? Compazine [Prochlorperazine Edisylate] ??? Pana ??? Pentazocine Hcl ??? Prochlorperazine Maleate ??? Talwin [Pentazocine Lactate] Prior To Admission Medications: Prescriptions Prior to Admission Medication Sig Dispense Refill Last Dose ??? acetaminophen 325 mg Oral Tab Take 650 mg by mouth every 4 hours as needed for Pain. Taking at Unknown time ??? ARIPiprazole (ABILIFY) 10 mg Oral Tablet Take 20 mg by mouth 2 times daily. 10/13/2016 at Unknowntime ??? buPROPion (WELLBUTRIN SR) 150 mg Oral Tablet Sustained Release 12 hr Take 150 mg by mouth daily. 10/13/2016 at Unknown time ??? gabapentin (NEURONTIN) 100 mg Oral Capsule Take 100 mg by mouth 3 times daily. Take 2 capsules by mouth 3 times daily 10/13/2016 at Unknown time ??? hydrOXYzine (ATARAX) 25 mg Oral Tablet Take 25 mg by mouth 2 times daily. Indications: ANXIETY 10/13/2016 at Unknown time ??? ibuprofen (ADVIL;MOTRIN) 600 mg Oral Tablet Take 1 Tab by mouth every 6 hours as needed for Pain. 160 Tab 2 Taking at Unknown time ??? insulin glargine (LANTUS) 100 unit/mL SubQ Solution Inject 18 units at nighttime in subcutaneous area.May substitute pens if covered by insurance (Patient taking differently: Subcutaneous (Injectunder the skin) 15 Units nightly. Inject 18 units at nighttime in subcutaneous area.May substitute pens if covered by insurance) 10 mL 3 10/12/2016 at Unknown time ??? insulin syringe,safetyneedle 1 mL 30 gauge x 07/21 Misc Syringe 1 Syringe by [facility].(Non-Drug; Combo Route) route nightly. 30 Syringe 1 Taking at Unknown time ??? metFORMIN (GLUCOPHAGE) 500 mg Oral Tablet Take 500 mg by mouth 2 times daily. 10/13/2016 at Unknown time ??? nitroGLYCERIN (NITROSTAT) 0.4 mg SL Tablet, Sublingual Place 1 Tab under the tongue every 5 minutes as needed for Chest pain. 20 Tab 0 Taking at Unknown time ??? risperiDONE (RISPERDAL) 1 mg Oral Tablet Take 2 mg by mouth nightly. 10/12/2016 at Unknown time ??? roPINIRole (REQUIP) 0.5 mg Oral Tablet Take 1.5 mg by mouth nightly. 10/12/2016 at Unknown time ??? sertraline (ZOLOFT) 100 mg Oral Tablet Take 200 mg by mouth daily. Reported on 08/12/2016 10/13/2016 at Unknown time ??? amitriptyline (ELAVIL) 75 mg Oral Tablet Take 1 Tab by mouth nightly for 30 days. (Patient not taking: Reported on 10/13/2016) 30 Tab 0 Not Taking at Unknown time ??? aspirin 81 mg Oral Tablet, Delayed Release (E.C.) Take 81 mg by mouth daily. Not Taking at Unknown time ??? atorvastatin (LIPITOR) 20 mg Oral Tablet Take 1 Tab by mouth nightly. (Patient not taking: Reported on 10/13/2016) 14 Tab 0 Not Taking at Unknown time ??? ferrous sulfate 325 mg (65 mg iron) Oral Tablet Take 1 Tab by mouth 2 times daily (with meals).(Patient not taking: Reported on 10/13/2016) 60 Tab 5 Not Taking at Unknown time ??? fUROsemide (LASIX) 20 mg Oral Tablet Take 1 Tab by mouth daily. (Patient not taking: Reported on 10/13/2016) 30 Tab 1 Not Taking at Unknown time ??? glipiZIDE (GLUCOTROL) 10 mg Oral Tablet Take 10 mg by mouth 2 times daily (with meals). Not Taking at Unknown time ??? isosorbide mononitrate (IMDUR) 60 mg Oral Tablet Sustained Release 24 hr Take 1 Tab by mouth daily. (Patient not taking: Reported on 10/13/2016) 14 Tab 0 Not Taking at Unknown time ??? lisinopril (PRINIVIL;ZESTRIL) 5 mg Oral Tablet Take by mouth daily. Not Taking at Unknown time ??? metoprolol (LOPRESSOR) 25 mg Oral Tablet TAKE 1 TABLET BY MOUTH TWICE A DAY (Patient not taking: Reported on 10/13/2016) 60 Tab 0 Not Taking at Unknown time ??? NIFEdipine (PROCARDIA XL) 90 mg Oral Tablet Extended Rel 24 hr Take 1 Tab by mouth daily. (Patient not taking: Reported on 10/13/2016) 30 Tab 1 Not Taking at Unknown time ??? pantoprazole (PROTONIX) 40 mg Oral Tablet, Delayed Release (E.C.) Take 1 Tab by mouth daily. 30Tab 1 Taking ??? RANEXA 500 mg Oral Tablet Sustained Release 12 hr Take 1 Tab by mouth every 12 hours. (Patient not taking: Reported on 10/13/2016) 28 Tab 0 Not Taking at Unknown time ??? RANEXA 500 mg Oral Tablet Sustained Release 12 hr TAKE ONE TABLET BY MOUTH TWICE DAILY (Patientnot taking: Reported on 10/13/2016) 60 Tab 0 Not Taking at Unknown time ??? sitaGLIPtin (JANUVIA) 100 mg Oral Tablet Take 100 mg by mouth daily. Not Taking at Unknown time ??? venlafaxine (EFFEXOR-XR) 150 mg Oral Capsule, Sust. Release 24 hr Take 300 mg by mouth nightly.Not Taking at Unknown time Social History: Social History Substance Use Topics ??? Smoking status: Never Smoker ??? Smokeless tobacco: Never Used ??? Alcohol use No Comment: wednesday Family History: Family History Problem Relation Age of Onset ??? Cancer Mother larnyx cancer ??? Heart Disease Sister ??? No Known Problems Son ??? Seizures Daughter Physical Exam: GEN: Alert, pleasant and oriented x3. In no acute distress. HEENT: Sclerae anicteric. No xanthelasmas. EOM's intact. NECK: Supple. Carotids without bruits. No thyromegaly. No JVD LUNGS: clear to auscultation. Chest wall nontender. HEART: RRR, no murmur, gallop, or rub. No jugular venous distension. PMI nondisplaced. ABD: soft, nontender, positive bowel sounds, no hepatosplenomegaly or bruits. EXT: 1+ left LE edema, +2 radial, +2 PT pulses Musculoskeletal: no clubbing, cyanosis or discoloration. Extremities w FROM , no restrictions, No joint pain NEURO: no obvious focal abnormalities Soa Integration Developer: SR Vitals: Vitals: 10/13/16 1936 10/13/16 2336 10/14/16 0524 10/14/16 0815 BP: 127/52 136/60 171/68 160/62 BP Location: Right arm Right arm Right arm Right arm Patient Position: Semi Fowlers Semi Fowlers Semi Fowlers Semi Fowlers Pulse: 60 70 83 82 Resp: 18 20 Temp: 98 ??F (36.7 ??C) 98.4 ??F (36.9 ??C) 98.6 ??F (37 ??C) TempSrc: Oral Oral Oral SpO2: 99% 91% 96% 93% Weight: Height: Intake and Output: No intake or output data in the 24 hours ending 10/14/16 0901 Weight: Wt Readings from Last 3 Encounters: 10/13/16 256 lb (116.1 kg) 09/21/16 256 lb (116.1 kg) 08/30/16 244 lb 4.8 oz (110.8 kg) Labs: Lab Results Component Value Date BNP 153 10/13/2016 HGB 12.9 10/14/2016 HCT 38.6 10/14/2016 PLT 154 10/14/2016 CHOLESTEROL 177 09/09/2015 TRIG 375 (H) 09/09/2015 HDL 35 (L) 09/09/2015 LDLCALC 67 09/09/2015 ALT 10 10/13/2016 AST 11 10/13/2016 NA 142 10/14/2016 K 4.7 10/14/2016 CREATININE 1.50 (H) 10/14/2016 BUN 22 10/14/2016 CO2 26 10/14/2016 TSH 0.043 (L) 10/13/2016 INR 1.03 12/28/2015 GLU 250 (H) 10/14/2016 HGBA1C 6.1 09/09/2015 Chest xray: No acute cardiopulmonary process EKG: SR w old inferior, anterior IL Assessment: 1. CP: -resolved Dull pressure, heavy sensation perist -trop < 0.01 x 3 -no ischemic EKG shifts Stress test 08-01-16--> neg for ischemia, EF 65% Remain NPO til seen by Dr Perea Given CV risk, pattern of angina and recent stress test-- may require LHC to reevaluate LAD . Pt agrees w POC if angio is warranted Cr 1.50 GFR 35 2. CAD LHC 03-30-15 Left Anterior Descending Mid LAD lesion 70% stenosed. The lesion is discrete. The stenosis was measured by a visual reading.Pressure wire/FFR was performed on the lesion. FFR: 0.92. Maximum hyperemia was achieved through IVadenosine Very discrete mid LAD at trifurcation of diagonal and septal branches -cont ASA, BB, Lipitor and Ranexa -plan as per above 3. HTN -labile BP 131/63 -160/62 -increase Lopressor to 50 mg BID Monitor HR Cautious to increase ARABELLA- 2/2 Cr of 1.5 -cont procardia and Lisinopril 4. Aflutter: h/o -s/p ablation 12-31-15 ( dr Tee) -maintaining SR -off AC [id number] Score Congestive heart failure 1 Hypertension 1 Age older than 75y (2pts) 0 Age 65 to 74y 1 Diabetes mellitus 1 Stroke/TIA/TE (2pts) 2 Vascular disease (prior IL, PAD, or aortic plaque) 1 Sex category (ie, female) 1 Total score: 8/9 5. DM -per primary care 6. CVA, h/o -residual left hemiparesis -cont ASA 7. CHF -chronic diastolic LV dysfunction: EF 65% Echo 06/23/2016 -compensated -cont Lasix, Lisinopril Watch renal Stop NSAIDS 8. Mood disorder -per primary care Plan: -keep NPO til seen by Dr Perea -consideration for LHC -increase Lopressor 50 mg BID -stop NSAIDS -increase Ranexa to 1000 mg BID Thank you for consult Will follow Further input to follow from Dr. Eliazar Anderson APRN Pt was seen in conjunction with a mid-level provider. I obtained the history from the patient. I personally examined this patient. I discussed the plan with pt I placed orders in chart. Pt admitted with chest pressure, like someone sitting on her chest, radiated to her lf jaw and lf arm. Similar to her anginal cp Relieved with NTG. On exam VSS Neck no JVD CVS s1, s2 rrr RS no rales or rhonchi Abd soft + BS Ext no edema EKG- SR, inferior q waves, decreased R progression, no dynamic ST abnormalities. Labs noted Plan. Chest pain suggestive of angina. Cath and FFR in 2016 noted Stress in July 2016 noted. I discussed with patient the indication for coronary angiography vs med Rx. The risks of cath, not limited to , bleeding, infection, heart attack, stoke, damage to blood vessels, kidney failure explained. She wishes to proceed with cath tomorrow. * Deena Waldron MD - 10/13/2016 6:40 PM EDT Images from the original note were not included. Admission History and Physical Date of Admission: 10/13/2016 Primary Care Physician: Sharee Segovia ARNP Subjective Chief Complaint Patient presents with ??? Chest Pain Arrived via [facility] 4 Baby Asa, 3 Nitro given via Squad Faby Palm is a 66 y.o. female who presents with chest pain. She has a history of known CAD. Around 12:30 pm today, she developed chest pain. She describes it as something sitting on my chest. The pain radiates down her left arm and up into her jaw. It is associated with shortness of breath.Earlier today she had an episode of nausea and vomiting which has since resolved. Active Hospital Problems Diagnosis ??? *Angina pectoris (HCC) ??? Chronic diastolic CHF (congestive heart failure) (HCC) ??? Coronary artery disease involving [place] coronary artery of [place] heart with unstable angina pectoris (HCC) ??? Hemiparesis affecting left side as late effect of stroke (HCC) ??? History of CVA (cerebrovascular accident) ??? Essential hypertension Past Medical History: Diagnosis Date ??? Atrial flutter (HCC) EPS, AFL Ablation on 12/31/[address] Tee ??? CHF (congestive heart failure) (HCC) ??? COPD (chronic obstructive pulmonary disease) (HCC) ??? DDD (degenerative disc disease) ??? Diabetes mellitus (HCC) ??? Hypertension ??? RLS (restless legs syndrome) ??? Stroke (HCC) 2010 left side affected ??? Suicide attempt (HCC) ??? Yeast infection recurrent Past Surgical History: [...] Allergen Reactions ??? Compazine [Prochlorperazine Edisylate] ??? Pana ??? Pentazocine Hcl ??? Prochlorperazine Maleate ??? Talwin [Pentazocine Lactate] No current facility-administered medications on file prior to encounter. Current Outpatient Prescriptions on File Prior to Encounter Medication Sig Dispense Refill ??? acetaminophen 325 mg Oral Tab Take 650 mg by mouth every 4 hours as needed for Pain. ??? ARIPiprazole (ABILIFY) 10 mg Oral Tablet Take 20 mg by mouth 2 times daily. ??? gabapentin (NEURONTIN) 100 mg Oral Capsule Take 100 mg by mouth 3 times daily. Take 2 capsules by mouth 3 times daily ??? hydrOXYzine (ATARAX) 25 mg Oral Tablet [...] if covered by insurance (Patient taking differently: Subcutaneous (Injectunder the skin) 15 Units nightly. Inject 18 units at nighttime in subcutaneous area.May substitute pens if covered by insurance) 10 mL 3 ??? insulin syringe,safetyneedle 1 mL 30 gauge x 07/21 Misc Syringe 1 Syringe by Misc.(Non-Drug; Combo Route) route nightly. 30 Syringe 1 ??? nitroGLYCERIN (NITROSTAT) 0.4 mg SL Tablet, Sublingual Place 1 Tab under the tongue every 5 minutes as needed for Chest pain. 20 Tab 0 ??? risperiDONE (RISPERDAL) 1 mg Oral Tablet Take 2 mg by mouth nightly. ??? roPINIRole (REQUIP) 0.5 mg Oral Tablet Take 1.5 mg by mouth nightly. ??? sertraline (ZOLOFT) 100 mg Oral Tablet Take 200 mg by mouth daily. Reported on 08/12/2016 ??? amitriptyline (ELAVIL) 75 mg Oral Tablet Take 1 Tab by mouth nightly for 30 days. (Patient not taking: Reported on 10/13/2016) 30 Tab 0 ??? aspirin 81 mg Oral Tablet, Delayed Release (E.C.) Take 81 mg by mouth daily. ??? atorvastatin (LIPITOR) 20 mg Oral Tablet Take 1 Tab by mouth nightly. (Patient not taking: Reported on 10/13/2016) 14 Tab 0 ??? ferrous sulfate 325 mg (65 mg iron) Oral Tablet Take 1 Tab by mouth 2 times daily (with meals).(Patient not taking: Reported on 10/13/2016) 60 Tab 5 ??? fUROsemide (LASIX) 20 mg Oral Tablet Take 1 Tab by mouth daily. (Patient not taking: Reported on 10/13/2016) 30 Tab 1 ??? glipiZIDE (GLUCOTROL) 10 mg Oral Tablet Take 10 mg by mouth 2 times daily (with meals). ??? isosorbide mononitrate (IMDUR) 60 mg Oral Tablet Sustained Release 24 hr Take 1 Tab by mouth daily. (Patient not taking: Reported on 10/13/2016) 14 Tab 0 ??? lisinopril (PRINIVIL;ZESTRIL) 5 mg Oral Tablet Take by mouth daily. ??? metoprolol (LOPRESSOR) 25 mg Oral Tablet TAKE 1 TABLET BY MOUTH TWICE A DAY (Patient not taking: Reported on 10/13/2016) 60 Tab 0 ??? NIFEdipine (PROCARDIA XL) 90 mg Oral Tablet Extended Rel 24 hr Take 1 Tab by mouth daily. (Patient not taking: Reported on 10/13/2016) 30 Tab 1 ??? pantoprazole (PROTONIX) 40 mg Oral Tablet, Delayed Release (E.C.) Take 1 Tab by mouth daily. 30Tab 1 ??? RANEXA 500 mg Oral Tablet Sustained Release 12 hr Take 1 Tab by mouth every 12 hours. (Patient not taking: Reported on 10/13/2016) 28 Tab 0 ??? RANEXA 500 mg Oral Tablet Sustained Release 12 hr TAKE ONE TABLET BY MOUTH TWICE DAILY (Patientnot taking: Reported on 10/13/2016) 60 Tab 0 ??? sitaGLIPtin (JANUVIA) 100 mg Oral Tablet Take 100 mg by mouth daily. ??? venlafaxine (EFFEXOR-XR) 150 mg Oral Capsule, Sust. Release 24 hr Take 300 mg by mouth nightly. Social History Social History ??? Marital status: [...] on file Social History Narrative Lives at [facility] Has two children and two grandchildren. Is Social History Narrative Lives at [facility] Has two children and two grandchildren. Is Problem Relation Age of Onset ??? Cancer Mother larnyx cancer ??? Heart Disease Sister ??? No Known Problems Son ??? Seizures Daughter Immunization History Administered Date(s) Administered ??? Influenza Vaccine Quadrivalent PF 12/27/2015 ??? Pneumococcal Conjugate Vaccine 13 Valent 12/26/2015 Review of Systems Constitutional: Negative for chills and fever. HENT: Negative for hearing loss. Eyes: Negative for blurred vision and double vision. Respiratory: Positive for cough and shortness of breath. Cardiovascular: Positive for chest pain and leg swelling. Gastrointestinal: Negative for abdominal pain, nausea and vomiting. Genitourinary: Negative for dysuria. Musculoskeletal: Negative for falls. Skin: Negative for rash. Neurological: Negative for headaches. Psychiatric/Behavioral: Positive for depression. Objective Vital Signs BP (!) 146/98 Pulse 56 Temp 98.1 ??F (36.7 ??C) (Oral) Resp 18 Ht 5' 8 (1.727 m) Wt 256 lb (116.1 kg) SpO2 97% BMI 38.92 kg/m?? Physical Exam Constitutional: She is oriented to person, place, and time. She appears well- developed and well-nourished. HENT: Head: Normocephalic and atraumatic. Neck: Normal range of motion. Cardiovascular: Normal rate, regular rhythm and normal heart sounds. Pulmonary/Chest: Effort normal and breath sounds normal. No respiratory distress. Abdominal: Soft. Bowel sounds are normal. She exhibits no distension. There is no tenderness. Musculoskeletal: Normal range of motion. She exhibits edema. Neurological: She is alert and oriented to person, place, and time. Skin: Skin is warm and dry. She is not diaphoretic. Psychiatric: She has a normal mood and affect. Radiology/ Procedures/Labs Pertinent imaging and laboratory studies were reviewed. Assessment and Plan Active Hospital Problems *Angina pectoris (HCC) - trop x 1 <0.01, will trend - EKG - 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 MYOCARDIAL INFARCTION, PROBABLY OLD no diagnostic change other than rate - neg stress in July - ASA, statin, nitro - angiogram in December 2015 - Mid LAD of approximately 70% but difficult to quantify due to discrete lesion at point of trifurcation with a non flow limiting lesion based on FFR of 0.92 - consult cardiology - unsure if actually taking imdur or ranexa - will restart Chronic diastolic CHF (congestive heart failure) ([facility]) - echo in July - EF 55-60% - does not appear decompensated at this time - continue lasix, ACEI Coronary artery disease involving [place] coronary artery of [place] heart with unstable angina pectoris ([facility]) - angiogram in December showed LAD lesion - ASA, statin, ACEI, BB, imdur, ranexa Hemiparesis affecting left side as late effect of stroke ([facility])/History of CVA (cerebrovascular accident) - ASA, statin Essential hypertension - lasix, lisinopril, metoprolol, nifedipine Mood disorder ([facility]) - abilify, wellbutrin - unsure if also on risperdal and effexor, will hold for now DM (HCC) - lantus 15 units - SSI - hold metformin - glipizide Total time spent 70 minutes, >50% face to face with the patient and/or family and/or coordination of care. Discussed test results, projected prognosis and treatment plans, patient/family educationfor treatment and/or follow up. Discharge summary from June was reviewed. Last angiogram was reviewed. Deena Waldron MD 10/13/2016 6:48 PM documented in this encounter Consult Notes * Kaushik Perea MD - 10/14/2016 9:01 AM EDTAssociated Order(s): IP CONSULT TO CARDIOLOGY Cardiology History and Physical: Faby Palm Today's Date: 10/14/2016 Date of Admission: 10/13/2016 Primary Care Provider: Sharee Segovia ARNP [employer]ing Machine Helper: None in the office PMH: CAD, HTN, DM, CVA, HLD, CHF, AFL s/p ablation SH: non smoker, no ETOH Cardiac procedures: Stress test 08-01-16: neg for ischemia, EF 65% [facility] 12-29-15 Mid LAD lesion 70% stenosed. The lesion is discrete. The stenosis was measured by a visual reading. Pressure wire/FFR was performed on the lesion. FFR: 0.92. Maximum hyperemia was achieved through IV adenosine Very discrete mid LAD at trifurcation of diagonal and septal branches Chief Complaint: CP History of Present Illness: Patient is a 66 y.o. female who presented to the ER w acute CP and pressure. Pt was sitting in chair watching TV w abrupt sensation of MS CP, pressure and heaviness like someone was sitting on my chest . Cp, pressure a/w SOB, dizziness, nausea and mild diaphoresis. CP was constant in nature for over an hour a/w radiating left jaw and left arm pain. Similar pattern back in 2016 a/w her [facility]. Pt describes similar pattern of CP over the past several weeks. Typically resolves on its own or w SL NTG. Arrival ER, SR on tele EKG old inferior, anterior w no acute ischemic shifts initial Trop < 0.01 Cr 1.50 BP 131/63 Review of Systems: Constitutional: No fever, chills, or sweats. No weight loss. No activity changes ?? Eyes: No visual disturbance ?? HENT: No headache, hearing loss, epistaxis, sore throat, or hoarseness ?? Lungs: No cough, hemoptysis, or pleuritic chest pain ?? Cardiovascular: No PND or orthopnea. No palpitations, dizziness. No Syncope ?? Endocrine: No polyuria, polydypsia, or polyphagia. \ ?? GI: No abdominal pain, vomiting, hematemesis, diarrhea, constipation, melena, hematochezia, or bright red blood per rectum ?? : No dysuria, frequency, hesitancy, or gross hematuria ?? Musculoskeletal: No myalgias or muscle weakness. No gait changes ?? Neurologic: ?? Skin: No jaundice, or skin rash ?? Hematologic/Allergic: No history of blood clots, bleeding or easy bruising Integument: NO rashes Neurologic: Alert & oriented x 3, No gross focal deficits noted Psychiatric: Speech and behavior appropriate . No agitation, depression r anxiety Medical History: Past Medical History: Diagnosis Date ??? Atrial flutter (HCC) EPS, AFL Ablation on 12/31/[address] Tee ??? CHF (congestive heart failure) (HCC) ??? COPD (chronic obstructive pulmonary disease) (HCC) ??? DDD (degenerative disc disease) ??? Diabetes mellitus (HCC) ??? Hypertension ??? RLS (restless legs syndrome) ??? Stroke (HCC) 2010 left side affected ??? Suicide attempt (HCC) ??? Yeast infection recurrent Surgical History: Past [...] Brown MD; Location: [facility]; Service: Endoscopy Allergies: Allergies Allergen Reactions ??? Compazine [Prochlorperazine Edisylate] ??? Pana ??? Pentazocine Hcl ??? Prochlorperazine Maleate ??? Talwin [Pentazocine Lactate] Prior To Admission Medications: Prescriptions Prior to Admission Medication Sig Dispense Refill Last Dose ??? acetaminophen 325 mg Oral Tab Take 650 mg by mouth every 4 hours as needed for Pain. Taking at Unknown time ??? ARIPiprazole (ABILIFY) 10 mg Oral Tablet Take 20 mg by mouth 2 times daily. 10/13/2016 at Unknowntime ??? buPROPion (WELLBUTRIN SR) 150 mg Oral Tablet Sustained Release 12 hr Take 150 mg by mouth daily. 10/13/2016 at Unknown time ??? gabapentin (NEURONTIN) 100 mg Oral Capsule Take 100 mg by mouth 3 times daily. Take 2 capsules by mouth 3 times daily 10/13/2016 at Unknown time ??? hydrOXYzine (ATARAX) 25 mg Oral Tablet Take 25 mg by mouth 2 times daily. Indications: ANXIETY 10/13/2016 at Unknown time ??? ibuprofen (ADVIL;MOTRIN) 600 mg Oral Tablet Take 1 Tab by mouth every 6 hours as needed for Pain. 160 Tab 2 Taking at Unknown time ??? insulin glargine (LANTUS) 100 unit/mL SubQ Solution Inject 18 units at nighttime in subcutaneous area.May substitute pens if covered by insurance (Patient taking differently: Subcutaneous (Injectunder the skin) 15 Units nightly. Inject 18 units at nighttime in subcutaneous area.May substitute pens if covered by insurance) 10 mL 3 10/12/2016 at Unknown time ??? insulin syringe,safetyneedle 1 mL 30 gauge x 07/21 Misc Syringe 1 Syringe by [facility].(Non-Drug; Combo Route) route nightly. 30 Syringe 1 Taking at Unknown time ??? metFORMIN (GLUCOPHAGE) 500 mg Oral Tablet Take 500 mg by mouth 2 times daily. 10/13/2016 at Unknown time ??? nitroGLYCERIN (NITROSTAT) 0.4 mg SL Tablet, Sublingual Place 1 Tab under the tongue every 5 minutes as needed for Chest pain. 20 Tab 0 Taking at Unknown time ??? risperiDONE (RISPERDAL) 1 mg Oral Tablet Take 2 mg by mouth nightly. 10/12/2016 at Unknown time ??? roPINIRole (REQUIP) 0.5 mg Oral Tablet Take 1.5 mg by mouth nightly. 10/12/2016 at Unknown time ??? sertraline (ZOLOFT) 100 mg Oral Tablet Take 200 mg by mouth daily. Reported on 08/12/2016 10/13/2016 at Unknown time ??? amitriptyline (ELAVIL) 75 mg Oral Tablet Take 1 Tab by mouth nightly for 30 days. (Patient not taking: Reported on 10/13/2016) 30 Tab 0 Not Taking at Unknown time ??? aspirin 81 mg Oral Tablet, Delayed Release (E.C.) Take 81 mg by mouth daily. Not Taking at Unknown time ??? atorvastatin (LIPITOR) 20 mg Oral Tablet Take 1 Tab by mouth nightly. (Patient not taking: Reported on 10/13/2016) 14 Tab 0 Not Taking at Unknown time ??? ferrous sulfate 325 mg (65 mg iron) Oral Tablet Take 1 Tab by mouth 2 times daily (with meals).(Patient not taking: Reported on 10/13/2016) 60 Tab 5 Not Taking at Unknown time ??? fUROsemide (LASIX) 20 mg Oral Tablet Take 1 Tab by mouth daily. (Patient not taking: Reported on 10/13/2016) 30 Tab 1 Not Taking at Unknown time ??? glipiZIDE (GLUCOTROL) 10 mg Oral Tablet Take 10 mg by mouth 2 times daily (with meals). Not Taking at Unknown time ??? isosorbide mononitrate (IMDUR) 60 mg Oral Tablet Sustained Release 24 hr Take 1 Tab by mouth daily. (Patient not taking: Reported on 10/13/2016) 14 Tab 0 Not Taking at Unknown time ??? lisinopril (PRINIVIL;ZESTRIL) 5 mg Oral Tablet Take by mouth daily. Not Taking at Unknown time ??? metoprolol (LOPRESSOR) 25 mg Oral Tablet TAKE 1 TABLET BY MOUTH TWICE A DAY (Patient not taking: Reported on 10/13/2016) 60 Tab 0 Not Taking at Unknown time ??? NIFEdipine (PROCARDIA XL) 90 mg Oral Tablet Extended Rel 24 hr Take 1 Tab by mouth daily. (Patient not taking: Reported on 10/13/2016) 30 Tab 1 Not Taking at Unknown time ??? pantoprazole (PROTONIX) 40 mg Oral Tablet, Delayed Release (E.C.) Take 1 Tab by mouth daily. 30Tab 1 Taking ??? RANEXA 500 mg Oral Tablet Sustained Release 12 hr Take 1 Tab by mouth every 12 hours. (Patient not taking: Reported on 10/13/2016) 28 Tab 0 Not Taking at Unknown time ??? RANEXA 500 mg Oral Tablet Sustained Release 12 hr TAKE ONE TABLET BY MOUTH TWICE DAILY (Patientnot taking: Reported on 10/13/2016) 60 Tab 0 Not Taking at Unknown time ??? sitaGLIPtin (JANUVIA) 100 mg Oral Tablet Take 100 mg by mouth daily. Not Taking at Unknown time ??? venlafaxine (EFFEXOR-XR) 150 mg Oral Capsule, Sust. Release 24 hr Take 300 mg by mouth nightly.Not Taking at Unknown time Social History: Social History Substance Use Topics ??? Smoking status: Never Smoker ??? Smokeless tobacco: Never Used ??? Alcohol use No Comment: wednesday Family History: Family History Problem Relation Age of Onset ??? Cancer Mother larnyx cancer ??? Heart Disease Sister ??? No Known Problems Son ??? Seizures Daughter Physical Exam: GEN: Alert, pleasant and oriented x3. In no acute distress. HEENT: Sclerae anicteric. No xanthelasmas. EOM's intact. NECK: Supple. Carotids without bruits. No thyromegaly. No JVD LUNGS: clear to auscultation. Chest wall nontender. HEART: RRR, no murmur, gallop, or rub. No jugular venous distension. PMI nondisplaced. ABD: soft, nontender, positive bowel sounds, no hepatosplenomegaly or bruits. EXT: 1+ left LE edema, +2 radial, +2 PT pulses Musculoskeletal: no clubbing, cyanosis or discoloration. Extremities w FROM , no restrictions, No joint pain NEURO: no obvious focal abnormalities Soa Integration Developer: Vitals: Vitals: 10/13/16 1936 10/13/16 2336 10/14/16 0524 10/14/16 0815 BP: 127/52 136/60 171/68 160/62 BP Location: Right arm Right arm Right arm Right arm Patient Position: Semi Fowlers Semi Fowlers Semi Fowlers Semi Fowlers Pulse: 60 70 83 82 Resp: 18 20 20 20 Temp: 98 ??F (36.7 ??C) 98.4 ??F (36.9 ??C) 98.6 ??F (37 ??C) TempSrc: Oral Oral Oral SpO2: 99% 91% 96% 93% Weight: Height: Intake and Output: No intake or output data in the 24 hours ending 10/14/16 0901 Weight: Wt Readings from Last 3 Encounters: 10/13/16 256 lb (116.1 kg) 09/21/16 256 lb (116.1 kg) 08/30/16 244 lb 4.8 oz (110.8 kg) Labs: Lab Results Component Value Date BNP 153 10/13/2016 HGB 12.9 10/14/2016 HCT 38.6 10/14/2016 PLT 154 10/14/2016 CHOLESTEROL 177 09/09/2015 TRIG 375 (H) 09/09/2015 HDL 35 (L) 09/09/2015 LDLCALC 67 09/09/2015 ALT 10 10/13/2016 AST 11 10/13/2016 NA 142 10/14/2016 K 4.7 10/14/2016 CREATININE 1.50 (H) 10/14/2016 BUN 22 10/14/2016 CO2 26 10/14/2016 TSH 0.043 (L) 10/13/2016 INR 1.03 12/28/2015 GLU 250 (H) 10/14/2016 HGBA1C 6.1 09/09/2015 Chest xray: No acute cardiopulmonary process EKG: SR w old inferior, anterior IL Assessment: 1. CP: -resolved Dull pressure, heavy sensation perist -trop < 0.01 x 3 -no ischemic EKG shifts Stress test 08-01-16--> neg for ischemia, EF 65% Remain NPO til seen by Dr Perea Given CV risk, pattern of angina and recent stress test-- may require [facility] to reevaluate LAD . Pt agrees w POC if angio is warranted Cr 1.50 GFR 35 2. CAD C 03-30-15 Left Anterior Descending Mid LAD lesion 70% stenosed. The lesion is discrete. The stenosis was measured by a visual reading.Pressure wire/FFR was performed on the lesion. FFR: 0.92. Maximum hyperemia was achieved through IVadenosine Very discrete mid LAD at trifurcation of diagonal and septal branches -cont ASA, BB, Lipitor and Ranexa -plan as per above 3. HTN -labile BP 131/63 -160/62 -increase Lopressor to 50 mg BID Monitor HR Cautious to increase ARABELLA- 2/2 Cr of 1.5 -cont procardia and Lisinopril 4. Aflutter: h/o -s/p ablation 12-31-15 ( dr Tee) -maintaining SR -off AC [id number] Score Congestive heart failure 1 Hypertension 1 Age older than 75y (2pts) 0 Age 65 to 74y 1 Diabetes mellitus 1 Stroke/TIA/TE (2pts) 2 Vascular disease (prior IL, PAD, or aortic plaque) 1 Sex category (ie, female) 1 Total score: 8/9 5. DM -per primary care 6. CVA, h/o -residual left hemiparesis -cont ASA 7. CHF -chronic diastolic LV dysfunction: EF 65% Echo 06/23/2016 -compensated -cont Lasix, Lisinopril Watch renal Stop NSAIDS 8. Mood disorder -per primary care Plan: -keep NPO til seen by Dr Perea -consideration for C -increase Lopressor 50 mg BID -stop NSAIDS -increase Ranexa to 1000 mg BID Thank you for consult Will follow Further input to follow from Dr. Eliazar Anderson APRN Pt was seen in conjunction with a mid-level provider. I obtained the history from the patient. I personally examined this patient. I discussed the plan with pt I placed orders in chart. Pt admitted with chest pressure, like someone sitting on her chest, radiated to her lf jaw and lf arm. Similar to her anginal cp Relieved with NTG. On exam VSS Neck no JVD CVS s1, s2 rrr RS no rales or rhonchi Abd soft + BS Ext no edema EKG- SR, inferior q waves, decreased R progression, no dynamic ST abnormalities. Labs noted Plan. Chest pain suggestive of angina. Cath and FFR in 2015 noted Stress in July 2016 noted. I discussed with patient the indication for coronary angiography vs med Rx. The risks of cath, not limited to , bleeding, infection, heart attack, stoke, damage to blood vessels, kidney failure explained. She wishes to proceed with cath tomorrow. documented in this encounter ED Notes * Joselyn Villanueva RN - 10/13/2016 6:31 PM EDT Report called to 4D * Manju Hutchins RN - 10/13/2016 3:30 PM EDT Bed: 07 Expected date: Expected time: Means of arrival: Comments: ems * Vero Dumas MD - 10/13/2016 3:30 PM EDT Chief Complaint Patient presents with ??? Chest Pain Arrived via [facility] 4 Baby Asa, 3 Nitro given via Squad This is a 66-year-old female who presents for evaluation of chest tightness and heaviness with radiation to the left jaw on the left arm associated with dyspnea, diaphoresis and nausea. This occurredwhile she was sitting at a desk filling out some paperwork in a doctor's office. She was referred to the ER. She describes pain at its worst of being 10-11 out of 10. As I examine her she tells me at9 out of 10 at this time. I did have a negative Myoview stress test in July of this year. She indicates that these symptoms are different than what she had back then. Mild to moderate severity and presentation without exacerbating or alleviating factors. Patient states that she gets similar symptomsabout once a week over the last couple of months. Allergies Allergen Reactions ??? Compazine [Prochlorperazine Edisylate] ??? Pana ??? Pentazocine Hcl ??? Prochlorperazine Maleate ??? Talwin [Pentazocine Lactate] Home Medications: Prior to Admission medications Medication Sig Start Date End Date Taking? Authorizing Provider acetaminophen 325 mg Oral Tab Take 650 mg by mouth every 4 hours as needed for Pain. Provider, Historical amitriptyline (ELAVIL) 75 mg Oral Tablet Take 1 Tab by mouth nightly for 30 days. 09/23/16 10/23/16 Joanna Pierce MD ARIPiprazole (ABILIFY) 10 mg Oral Tablet Take 30 mg by mouth daily. Provider, Historical aspirin 81 mg Oral Tablet, Delayed Release (E.C.) Take 81 mg by mouth daily. Provider, Historical atorvastatin (LIPITOR) 20 mg Oral Tablet Take 1 Tab by mouth nightly. 10/02/16 Joanna Pierce MD ferrous sulfate 325 mg (65 mg iron) Oral Tablet Take 1 Tab by mouth 2 times daily (with meals). 04/04/15 Campbell Huston MD fUROsemide (LASIX) 20 mg Oral Tablet Take 1 Tab by mouth daily. 08/04/16 Joanna Salazar MD gabapentin (NEURONTIN) 100 mg Oral Capsule Take 100 mg by mouth 3 times daily. Take 2 capsules by mouth 3 times daily Provider, Historical glipiZIDE (GLUCOTROL) 10 mg Oral Tablet Take 10 mg by mouth 2 times daily (with meals). Provider, Historical hydrOXYzine (ATARAX) 25 mg Oral Tablet Take 25 mg by mouth 2 times daily. Indications: ANXIETY Provider, Historical ibuprofen (ADVIL;MOTRIN) 600 mg Oral Tablet Take 1 Tab by mouth every 6 hours as needed for Pain. 09/21/16 Sharee Segovia ARNP insulin glargine (LANTUS) 100 unit/mL SubQ Solution Inject 18 units at nighttime in subcutaneous area.May substitute pens if covered by insurance 09/21/16 Sharee Segovia ARNP insulin syringe,safetyneedle 1 mL 30 gauge x 07/21 [facility] Syringe 1 Syringe by [facility].(Non-Drug; Combo Route) route nightly. 08/04/16 Joanna Pierce MD isosorbide mononitrate (IMDUR) 60 mg Oral Tablet Sustained Release 24 hr Take 1 Tab by mouth daily.10/02/16 Joanna Pierce MD lisinopril (PRINIVIL;ZESTRIL) 5 mg Oral Tablet Take by mouth daily. Provider, Historical metoprolol (LOPRESSOR) 25 mg Oral Tablet TAKE 1 TABLET BY MOUTH TWICE A DAY 09/22/16 Sharee Segovia ARNP NIFEdipine (PROCARDIA XL) 90 mg Oral Tablet Extended Rel 24 hr Take 1 Tab by mouth daily. 06/24/16 Campbell Huston MD nitroGLYCERIN (NITROSTAT) 0.4 mg SL Tablet, Sublingual Place 1 Tab under the tongue every 5 minutesas needed for Chest pain. 09/21/16 Sharee Segovia ARNP pantoprazole (PROTONIX) 40 mg Oral Tablet, Delayed Release (E.C.) Take 1 Tab by mouth daily. 06/24/16 Campbell Huston MD RANEXA 500 mg Oral Tablet Sustained Release 12 hr Take 1 Tab by mouth every 12 hours. 10/05/16 Joanna Pierce MD RANEXA 500 mg Oral Tablet Sustained Release 12 hr TAKE ONE TABLET BY MOUTH TWICE DAILY 10/02/16 Joanna Pierce MD risperiDONE (RISPERDAL) 1 mg Oral Tablet Take 2 mg by mouth nightly. Provider, Historical roPINIRole (REQUIP) 0.5 mg Oral Tablet Take 1.5 mg by mouth nightly. Provider, Historical sertraline (ZOLOFT) 100 mg Oral Tablet Take 150 mg by mouth 2 times daily. Reported on 08/12/2016 Provider, Historical sitaGLIPtin (JANUVIA) 100 mg Oral Tablet Take 100 mg by mouth daily. Provider, Historical venlafaxine (EFFEXOR-XR) 150 mg Oral Capsule, Sust. Release 24 hr Take 300 mg by mouth nightly. Provider, Historical Past Medical History: Past Medical [...] [facility]; Service: Endoscopy Review of Systems Respiratory: Positive for shortness of breath. Cardiovascular: Positive for chest pain. Gastrointestinal: Positive for nausea. All other systems reviewed and are negative. Blood pressure 131/63, pulse 61, temperature 98.1 ??F (36.7 ??C), temperature source Oral, resp. rate 18, height 5' 8 (1.727 m), weight 256 lb (116.1 kg), SpO2 94 %. Physical Exam Constitutional: [...] or performed during the hospital encounter of 10/13/16 XR CHEST AP PORTABLE Narrative XR CHEST AP PORTABLE, 10/13/2016 4:25 PM CLINICAL HISTORY: -CHEST PAIN COMPARISON: August 2016 PROCEDURE COMMENTS: Frontal chest radiograph. FINDINGS: The study is limited by patient body habitus. Stable cardiomegaly. Lungs grossly clear although bases are of limited assessment due to the technical nature of the film Impression No acute cardiopulmonary process. Limited study CBC WITH AUTO DIFF Result Value Ref Range WBC 8.4 4.0 - 11.0 x10(3)/mcL RBC 4.26 3.80 - 5.10 x10(6)/mcL Hgb 12.4 12.0 - 15.6 gm/dL Hct 36.9 35.7 - 45.9 % MCV 86.6 82.5 - 99.8 fL MCH 29.2 27.0 - 34.3 pg MCHC 33.7 32.1 - 35.3 gm/dL RDW 14.6 11.5 - 15.0 % Platelet 190 144 - 423 x10(3)/mcL MPV 9.2 6.8 - 10.8 fL COMPREHENSIVE METABOLIC PANEL Result Value Ref Range Sodium 142 136 - 145 mmol/L Potassium 4.2 3.5 - 5.0 mmol/L Chloride 102 98 - 107 mmol/L Total CO2 27 22 - 29 mmol/L Anion Gap 13 7 - 16 mmol/L Calcium 9.4 8.8 - 10.2 mg/dL Glucose Lvl 187 (H) 82 - 100 mg/dL BUN 21 8 - 23 mg/dL Creatinine 1.26 0.51 - 1.30 mg/dL Albumin 4.0 3.2 - 4.6 gm/dL Total Protein 7.1 6.4 - 8.3 gm/dL Bili Total 0.4 0.1 - 1.3 mg/dL AST 11 <=40 IU/L ALT 10 <=41 IU/L Alk Phos 152 (H) 35 - 104 IU/L GFR Afr Am 52 GFR Non Afr Am 43 NT PROBNP Result Value Ref Range NT Pro-BNP 153 <=319 pg/mL TROPONIN-T Result Value Ref Range Troponin-T <0.01 <=0.00 ng/mL DIFFERENTIAL Result Value Ref Range Neut Percent 70.7 % Lymph Percent 19.2 % [place] Percent 6.2 % Eos Percent 2.7 % Baso Percent 1.2 % Neut# 5.9 1.8 - 7.7 x10(3)/mcL Lymph# 1.6 0.6 - 4.8 x10(3)/mcL [place]# 0.5 0.0 - 1.3 x10(3)/mcL Eos# 0.2 0.0 - 0.5 x10(3)/mcL Baso# 0.1 0.0 - 0.2 x10(3)/mcL EK EKG 12 LEAD Impression Stationary ECG Study [facility] Interpretive Statements 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 MYOCARDIAL INFARCTION, PROBABLY OLD no diagnostic change other than rate Electronically Signed On 10-13-2016 15:43:[address] MD ED Course: Appropriate laboratory and radiology studies reviewed Patient is treated with aspirin nitroglycerin here. Continues to have some discomfort. Objective evaluation appears unremarkable. Has a known LAD lesion of about 70% bifurcating point of the artery. Negative Myoview stress back in July with, from cardiology that revascularization would be done if the stress test became positive. Continue to have more frequent symptom episodes and today's episode seemed to be more severe to the patient. Going to be admitted to the hospitalist with cardiology consult for further evaluation as indicated. ED Clinical Impression: 1. Chest pain, unspecified type Critical Care time Condition at Discharge/Transfer from Department: Stable This chart was completed using voice recognition technology and may contain unintended errors Vero Dumas MD 10/13/16 1731 documented in this encounter Miscellaneous Notes * Utilization Review Notes - Pat Chapa RN - 10/15/2016 12:15 PM EDT Await card cath today * Plan of Care - Elvira Moscoso RN - 10/14/2016 2:57 PM EDT Problem: Safety: Fall Risk Goal: Patient will remain free of falls and injury Outcome: Progressing Pt resting comfortably in bed with call light in reach. Pt alert and oriented and is educated on calling when needing assistance throughout the shift. Pt is wearing non skid socks and the room is free of clutter. For pt safety bed alarm is activated. Will continue to Monitor and assess. * Plan of Care - Nubia Boyd RN - 10/14/2016 10:13 AM EDT Problem: Disposition/Transition of Care Goal: Patient will have a plan for disposition or transition to next level of care Outcome: Completed Date Met: 10/14/16 10-14-16 See CC note * Utilization Review Notes - Pat Chapa RN - 10/14/2016 9:55 AM EDT From ED, OBS order for chest pain Plan: Tele, serial troponin documented in this encounter Plan of Treatment Scheduled Orders Name Type Priority Associated Diagnoses Orde r Schedule URINALYSIS Lab Routine Routine - Once for 1 Occurrences starting 10/14/2016 until 10/14/2016 BASIC METABOLIC PANEL Lab Routine Rou marianela - Once for 1 Occurrences starting 10/15/2016 until 10/15/2016 BASIC METABOLIC PANEL Lab Routine JACK (acute kidney injury) (HCC) Expected: 10/19/2016, Expires: 10/15/2017 documented as of this encounter Goals Goal [...] Date/Time Associated Diagnosis Comments SCANNED RHYTHM STRIPS 10/17/2016 7:24 PM EDT GLUCOSE METER POC Routine 10/15/2016 5:12 PM EDT GLUCOSE METER POC Routine 10/15/2016 1:47 PM EDT LEFT HEART CATH Routine 10/15/2016 12:00 PM EDT Chest pain, unspecified type LEFT VENTRICULOGRAM Routine 10/15/2016 12:00 PM EDT Chest pain, unspecified type CARDIAC PROCEDURE Routine 10/15/2016 12:00 PM EDT Chest pain, unspecified type CONCRETE TESTER HEMODYNAMIC WAVEFORMS Routine 10/15/2016 11:15 AM EDT SCANNED RHYTHM STRIPS 10/15/2016 9:35 AM EDT GLUCOSE METER POC Routine 10/15/2016 8:36 AM EDT DIFFERENTIAL Early AM 10/15/2016 8:24 AM EDT CBC WITH DIFF Early AM 10/15/2016 8:24 AM EDT BASIC METABOLIC PANEL Early AM 10/15/2016 6:05 AM EDT SCANNED RHYTHM STRIPS 10/15/2016 5:52 AM EDT SCANNED EKG 10/14/2016 10:55 PM EDT GLUCOSE METER POC Routine 10/14/2016 8:35 PM EDT GLUCOSE METER POC Routine 10/14/2016 6:34 PM EDT GLUCOSE METER POC Routine 10/14/2016 12:57 PM EDT SCANNED RHYTHM STRIPS 10/14/2016 9:52 AM EDT GLUCOSE METER POC Routine 10/14/2016 8:40 AM EDT DIFFERENTIAL Early AM 10/14/2016 6:29 AM EDT CBC WITH DIFF Early AM 10/14/2016 6:29 AM EDT BASIC METABOLIC PANEL Early AM 10/14/2016 6:29 AM EDT SCANNED RHYTHM STRIPS 10/14/2016 5:04 AM EDT EK EKG 12 LEAD Routine 10/14/2016 12:05 AM EDT TROPONIN-T Timed 10/13/2016 11:30 PM EDT GLUCOSE METER POC Routine 10/13/2016 7:39 PM EDT IP CONSULT TO CARDIOLOGY Routine 10/13/2016 7:33 PM EDT Procedure Note - Kaushik Perea MD - 10/14/2016 9:01 AM EDTThis note is in progress. Cardiology History and Physical: Faby Palm Today's Date: 10/14/2016 Date of Admission: 10/13/2016 Primary Care Provider: Sharee Segovia ARNP Carton Forming Machine Helper: None in the office PMH: CAD, HTN, DM, CVA, HLD, CHF, AFL s/p ablation SH: non smoker, no ETOH Cardiac procedures: Stress test 08-01-16: neg for ischemia, EF 65% [facility] 12-29-15 Mid LAD lesion 70%stenosed. The lesion is discrete. The stenosis was measured by a visualreading. Pressure wire/FFR was performed on the lesion. FFR: 0.92. Maximumhyperemia was achieved through IV adenosine Very discrete mid LAD attrifurcation of diagonal and septal branches Chief Complaint: CP History of Present Illness: Patient is a 66 y.o. female who presented to the ER w acute CP andpressure. Pt was sitting in chair watching TV w abrupt sensation of MS CP,pressure and heaviness like someone was sitting on my chest . Cp,pressure a/w SOB, dizziness, nausea and mild diaphoresis. CP was camille nature for over an hour a/w radiating left jaw and left arm pain.Similar pattern back in 2016 a/w her [facility]. Pt describes similar pattern ofCP over the past several weeks. Typically resolves on its own or w SL NTG. Arrival ER, SR on tele EKG old inferior, anterior w no acute ischemic shifts initial Trop < 0.01 Cr 1.50 BP 131/63 Review of Systems: Constitutional: No fever, chills, or sweats. No weight loss. No activitychanges ?? Eyes: No visual disturbance ?? HENT: No headache, hearing loss, epistaxis, sorethroat, or hoarseness ?? Lungs: No cough, hemoptysis, or pleuritic chestpain ?? Cardiovascular: No PND or orthopnea. Nopalpitations, dizziness. No Syncope ?? Endocrine: No polyuria, polydypsia, or polyphagia.\ ?? GI: No abdominal pain, vomiting, hematemesis,diarrhea, constipation, melena, hematochezia, or bright red blood perrectum ?? : No dysuria, frequency, hesitancy, or grosshematuria ?? Musculoskeletal: No myalgias or muscle weakness. Nogait changes ?? Neurologic: ?? Skin: No jaundice, or skin rash ?? Hematologic/Allergic: No history of blood clots,bleeding or easy bruising Integument: NO rashes Neurologic: Alert & oriented x 3, No gross focaldeficits noted Psychiatric: Speech and behavior appropriate . Noagitation, depression r anxiety Medical History: Past Medical History: Diagnosis Date [...] ? ? Suicide attempt (HCC) ? ? Yeast infection recurrent Surgical History: [...] MD; Location: [facility]; Service: Endoscopy Allergies: Allergies Allergen Reactions ? ? Compazine [Prochlorperazine Edisylate] ? ? Pana ? ? Pentazocine Hcl ? ? Prochlorperazine Maleate ? ? Talwin [Pentazocine Lactate] Prior To Admission Medications: Prescriptions Prior to Admission Medication Sig Dispense Refill Last Dose ? ? acetaminophen 325 mg Oral Tab Take 650 mg by mouth every 4 hours asneeded for Pain. Taking at Unknown time ? ? ARIPiprazole (ABILIFY) 10 mg Oral Tablet Take 20 mg by mouth 2 timesdaily. 10/13/2016 at Unknown time ? ? buPROPion (WELLBUTRIN SR) 150 mg Oral Tablet Sustained Release 12 hrTake 150 mg by mouth daily. 10/13/2016 at Unknown time ? ? gabapentin (NEURONTIN) 100 mg Oral Capsule Take 100 mg by mouth 3 timesdaily. Take 2 capsules by mouth 3 times daily 10/13/2016 at Unknown time ? ? hydrOXYzine (ATARAX) 25 mg Oral Tablet Take 25 mg by mouth 2 timesdaily. Indications: ANXIETY 10/13/2016 at Unknown time ? ? ibuprofen (ADVIL;MOTRIN) 600 mg Oral Tablet Take 1 Tab by mouth every 6hours as needed for Pain. 160 Tab 2 Taking at Unknown time ? ? insulin glargine (LANTUS) 100 unit/mL SubQ Solution Inject 18 units atnighttime in subcutaneous area.May substitute pens if covered by insurance(Patient taking differently: Subcutaneous (Inject under the skin) 15 Unitsnightly. Inject 18 units at nighttime in subcutaneous area.May substitutepens if covered by insurance) 10 mL 3 10/12/2016 at Unknown time ? ? insulin syringe,safetyneedle 1 mL 30 gauge x 07/21 Misc Syringe 1Syringe by Misc.(Non-Drug; Combo Route) route nightly. 30 Syringe 1 Takingat Unknown time ? ? metFORMIN (GLUCOPHAGE) 500 mg Oral Tablet Take 500 mg by mouth 2 timesdaily. 10/13/2016 at Unknown time ? ? nitroGLYCERIN (NITROSTAT) 0.4 mg SL Tablet, Sublingual Place 1 Tab underthe tongue every 5 minutes as needed for Chest pain. 20 Tab 0 Taking atUnknown time ? ? risperiDONE (RISPERDAL) 1 mg Oral Tablet Take 2 mg by mouth nightly.10/12/2016 at Unknown time ? ? roPINIRole (REQUIP) 0.5 mg Oral Tablet Take 1.5 mg by mouth nightly.10/12/2016 at Unknown time ? ? sertraline (ZOLOFT) 100 mg Oral Tablet Take 200 mg by mouth daily.Reported on 08/12/2016 10/13/2016 at Unknown time ? ? amitriptyline (ELAVIL) 75 mg Oral Tablet Take 1 Tab by mouth nightly for30 days. (Patient not taking: Reported on 10/13/2016) 30 Tab 0 Not Taking atUnknown time ? ? aspirin 81 mg Oral Tablet, Delayed Release (E.C.) Take 81 mg by mouthdaily. Not Taking at Unknown time ? ? atorvastatin (LIPITOR) 20 mg Oral Tablet Take 1 Tab by mouth nightly.(Patient not taking: Reported on 10/13/2016) 14 Tab 0 Not Taking at Unknowntime ? ? ferrous sulfate 325 mg (65 mg iron) Oral Tablet Take 1 Tab by mouth 2times daily (with meals). (Patient not taking: Reported on 10/13/2016) 60Tab 5 Not Taking at Unknown time ? ? fUROsemide (LASIX) 20 mg Oral Tablet Take 1 Tab by mouth daily. (Patientnot taking: Reported on 10/13/2016) 30 Tab 1 Not Taking at Unknown time ? ? glipiZIDE (GLUCOTROL) 10 mg Oral Tablet Take 10 mg by mouth 2 timesdaily (with meals). Not Taking at Unknown time ? ? isosorbide mononitrate (IMDUR) 60 mg Oral Tablet Sustained Release 24 hrTake 1 Tab by mouth daily. (Patient not taking: Reported on 10/13/2016) 14Tab 0 Not Taking at Unknown time ? ? lisinopril (PRINIVIL;ZESTRIL) 5 mg Oral Tablet Take by mouth daily.Not Taking at Unknown time ? ? metoprolol (LOPRESSOR) 25 mg Oral Tablet TAKE 1 TABLET BY MOUTH TWICE ADAY (Patient not taking: Reported on 10/13/2016) 60 Tab 0 Not Taking atUnknown time ? ? NIFEdipine (PROCARDIA XL) 90 mg Oral Tablet Extended Rel 24 hr Take 1Tab by mouth daily. (Patient not taking: Reported on 10/13/2016) 30 Tab 1Not Taking at Unknown time ? ? pantoprazole (PROTONIX) 40 mg Oral Tablet, Delayed Release (E.C.) Take 1Tab by mouth daily. 30 Tab 1 Taking ? ? RANEXA 500 mg Oral Tablet Sustained Release 12 hr Take 1 Tab by mouthevery 12 hours. (Patient not taking: Reported on 10/13/2016) 28 Tab 0 NotTaking at Unknown time ? ? RANEXA 500 mg Oral Tablet Sustained Release 12 hr TAKE ONE TABLET BYMOUTH TWICE DAILY (Patient not taking: Reported on 10/13/2016) 60 Tab 0 NotTaking at Unknown time ? ? sitaGLIPtin (JANUVIA) 100 mg Oral Tablet Take 100 mg by mouth daily.Not Taking at Unknown time ? ? venlafaxine (EFFEXOR-XR) 150 mg Oral Capsule, Sust. Release 24 hr [id number] mg by mouth nightly. Not Taking at Unknown time Social History: Social History Substance Use Topics ? ? Smoking status: Never Smoker ? ? Smokeless tobacco: Never Used ? ? Alcohol use No Comment: wednesday Family History: Family History Problem Relation Age of Onset ? ? Cancer Mother larnyx cancer ? ? Heart Disease Sister ? ? No Known Problems Son ? ? Seizures Daughter Physical Exam: GEN: Alert, pleasant and oriented x3. In no acute distress. HEENT: Sclerae anicteric. No xanthelasmas. EOM's intact. NECK: Supple. Carotids without bruits. No thyromegaly. No JVD LUNGS: clear to auscultation. Chest wall nontender. HEART: RRR, no murmur, gallop, or rub. No jugular venous distension. PMInondisplaced. ABD: soft, nontender, positive bowel sounds, no hepatosplenomegaly orbruits. EXT: 1+ left LE edema, +2 radial, +2 PT pulses Musculoskeletal: no clubbing, cyanosis or discoloration. Extremities wFROM , no restrictions, No joint pain NEURO: no obvious focal abnormalities Soa Integration Developer: SR Vitals: Vitals: 10/13/16 1936 10/13/16 2336 10/14/16 0524 10/14/16 0815 BP: 127/52 136/60 171/68 160/62 BP Location: Right arm Right arm Right arm Right arm Patient Position: Semi Fowlers Semi Fowlers Semi Fowlers Semi Fowlers Pulse: 60 70 83 82 Resp: 18 20 20 20 Temp: 98 ??F (36.7 ??C) 98.4 ??F (36.9 ??C) 98.6 ??F (37 ??C) TempSrc: Oral Oral Oral SpO2: 99% 91% 96% 93% Weight: Height: Intake and Output: No intake or output data in the 24 hours ending 10/14/16 0901 Weight: Wt Readings from Last 3 Encounters: 10/13/16 256 lb (116.1 kg) 09/21/16 256 lb (116.1 kg) 08/30/16 244 lb 4.8 oz (110.8 kg) Labs: Lab Results Component Value Date BNP 153 10/13/2016 HGB 12.9 10/14/2016 HCT 38.6 10/14/2016 PLT 154 10/14/2016 CHOLESTEROL 177 09/09/2015 TRIG 375 (H) 09/09/2015 HDL 35 (L) 09/09/2015 LDLCALC 67 09/09/2015 ALT 10 10/13/2016 AST 11 10/13/2016 NA 142 10/14/2016 K 4.7 10/14/2016 CREATININE 1.50 (H) 10/14/2016 BUN 22 10/14/2016 CO2 26 10/14/2016 TSH 0.043 (L) 10/13/2016 INR 1.03 12/28/2015 GLU 250 (H) 10/14/2016 HGBA1C 6.1 09/09/2015 Chest xray: No acute cardiopulmonary process EKG: SR w old inferior, anterior IL Assessment: 1. CP: -resolved Dull pressure, heavy sensation perist -trop < 0.01 x 3 -no ischemic EKG shifts Stress test 08-01-16--> neg for ischemia, EF 65% Remain NPO til seen by Dr Perea Given CV risk, pattern of angina and recent stress test-- may require LHCto reevaluate LAD . Pt agrees w POC if angio is warranted Cr 1.50 GFR 35 2. CAD [facility] 03-30-15 Left Anterior Descending Mid LAD lesion 70% stenosed. The lesion is discrete. The stenosis wasmeasured by a visual reading. Pressure wire/FFR was performed on thelesion. FFR: 0.92. Maximum hyperemia was achieved through IV adenosineVery discrete mid LAD at trifurcation of diagonal and septal branches -cont ASA, BB, Lipitor and Ranexa -plan as per above 3. HTN -labile BP 131/63 -160/62 -increase Lopressor to 50 mg BID Monitor HR Cautious to increase ARABELLA- 2/2 Cr of 1.5 -cont procardia and Lisinopril 4. Aflutter: h/o -s/p ablation 12-31-15 ( dr Tee) -maintaining SR -off AC [id number] Score Congestive heart failure 1 Hypertension 1 Age older than 75y (2pts) 0 Age 65 to 74y 1 Diabetes mellitus 1 Stroke/TIA/TE (2pts) 2 Vascular disease (prior IL, PAD, or aortic plaque) 1 Sex category (ie, female) 1 Total score: 8/9 5. DM -per primary care 6. CVA, h/o -residual left hemiparesis -cont ASA 7. CHF -chronic diastolic LV dysfunction: EF 65% Echo 06/23/2016 -compensated -cont Lasix, Lisinopril Watch renal Stop NSAIDS 8. Mood disorder -per primary care Plan: -keep NPO til seen by Dr Perea -consideration for LHC -increase Lopressor 50 mg BID -stop NSAIDS -increase Ranexa to 1000 mg BID Thank you for consult Will follow Further input to follow from Dr. Eliazar Anderson APRN Pt was seen in conjunction with a mid-level provider. I obtained the history from the patient. I personally examined this patient. I discussed the plan with pt I placed orders in chart. Pt admitted with chest pressure, like someone sitting on her chest,radiated to her lf jaw and lf arm. Similar to her anginal cp Relieved with NTG. On exam VSS Neck no JVD CVS s1, s2 rrr RS no rales or rhonchi Abd soft + BS Ext no edema EKG- SR, inferior q waves, decreased R progression, no dynamic STabnormalities. Labs noted Plan. Chest pain suggestive of angina. Cath and FFR in 2015 noted Stress in July 2016 noted. I discussed with patient the indication for coronary angiography vs medRx. The risks of cath, not limited to , bleeding, infection, heartattack, stoke, damage to blood vessels, kidney failure explained. She wishes to proceed with cath tomorrow. TROPONIN-T STAT 10/13/2016 7:00 PM EDT THYROID STIMULATING HORMONE Routine 10/13/2016 7:00 PM EDT TROPONIN-T STAT 10/13/2016 4:40 PM EDT DIFFERENTIAL STAT 10/13/2016 4:40 PM EDT CBC WITH DIFF STAT 10/13/2016 4:40 PM EDT NT PROBNP STAT 10/13/2016 4:40 PM EDT COMPREHENSIVE METABOLIC PANEL STAT 10/13/2016 4:40 PM EDT XR CHEST AP PORTABLE EMMY 10/13/2016 4:25 PM EDT EK EKG 12 LEAD STAT 10/13/2016 3:33 PM EDT documented in this encounter Results * SCANNED RHYTHM STRIPS (10/17/2016 7:24 PM EDT) Anatomical Region Laterality Modality Other 10/17/2016 7:24 PM EDT us Unknown Unknown IMG ECG ORDERABLES Final Result * (ABNORMAL) GLUCOSE METER POC (10/15/2016 5:12 PM EDT) Glucose Meter POC 133(H) 70 - 100 mg/dL [facility] Sample Type Capillary [facility] POIN T [facility]ARE [facility] Patient Status Non-Critical Patient [facility] Blood specimen (specimen) 10/15/2016 5:12 PM EDT 10/15/2016 5:12 PM EDT us Deena Waldron MD POINT OF CARE TEST ORDERABLES Final Result [facility] [address] [facility] [place] [address] * (ABNORMAL) GLUCOSE METER POC (10/15/2016 1:47 PM EDT) Glucose Meter POC 112(H) 70 - 100 mg/dL [facility] Sample Type Capillary [facility] PO[facility] T [facility]ARE [facility] Patient Status Non-Critical Patient [facility] Blood specimen (specimen) 10/15/2016 1:47 PM EDT 10/15/2016 1:47 PM EDT Deena Waldron MD POINT OF CARE TEST ORDERABLES Final Result Performing Organization Address [facility] de Phone Number [facility] [address] [facility] [place] [address] * CORONARY ANGIOGRAM (COR/LHC/LV GRAM, CARDIAC CATHETERIZATION), LEFT VENTRICULOGRAM, LEFT HEART CATH(10/15/2016 12:00 PM EDT) Cath EF Estimated 60 % [facility] Narrative [facility] - 10/15/2016 12:20 PM EDT ?? Mid LAD 50-60% stenosis ?? Ostial RCA 50% stenosis.200mcg of IC NTG administered and angiogram performed. ?? The ejection fraction is greater than 55% by visual estimate Plan Films reviewed by Dr. Wayne- med Rx. Coronary Findings Diagnostic Dominance: Right Left Main: The vessel is moderate in size. Left Anterior Descending: The vessel is moderate in size. Mid LAD 50-60% stenosis. Left Circumflex: The vessel is moderate in size. Right Coronary Artery: Ostial RCA 50% stenosis. 200mcg of IC NTG administered and angiogram performed. Intervention No interventions have been documented. Left Ventricle The ejection fraction is greater than 55% by visual estimate. us Bertram Harvey APRN CARDIAC CATH ORDERABLES Edit ed Result - Final Performing Organization Address [facility] de Phone Number [facility] * CONCRETE TESTER HEMODYNAMIC WAVEFORMS (10/15/2016 11:15 AM EDT) 10/15/2016 11:1 5 AM EDT Bertram Harvey APRN CARDIAC CATH ORDERABLES Mildred l Result Performing Organization Address [facility] Co de Phone Number [facility] [address] [place] [address] * SCANNED RHYTHM STRIPS (10/15/2016 9:35 AM EDT) Anatomical Region Laterality Modality Other 10/15/2016 9:35 AM EDT Unknown Unknown IMG ECG ORDERABLES Final Result * (ABNORMAL) GLUCOSE METER POC (10/15/2016 8:36 AM EDT) Glucose Meter POC 163(H) 70 - 100 mg/dL [facility] Sample Type Capillary [facility] Patient Status Non-Critical Patient [facility] Blood specimen (specimen) 10/15/2016 8:36 AM EDT 10/15/2016 8:36 AM EDT Deena Waldron MD POINT OF CARE TEST ORDERABLES Final Result Performing Organization Address [facility] de Phone Number [facility] [address] [place] [address] * DIFFERENTIAL (10/15/2016 8:24 AM EDT) Neut Percent 70.5 % [facility] Lymph Percent 20.3 % [facility] [place] Percent 5.7 % [facility] Eos Percent 2.5 % [facility] Baso Percent 1.0 % [facility] Neut# 5.8 1.8 - 7.7 x10(3)/[facility] LABORATORY Lymph# 1.7 0.6 - 4.8 x10(3)/[facility] LABORATORY [place]# 0.5 0.0 - 1.3 x10(3)/[facility] LABORATORY Eos# 0.2 0.0 - 0.5 x10(3)/[facility] LABORATORY Baso# 0.1 0.0 - 0.2 x10(3)/[facility] LABORATORY Blood specimen (specimen) 10/15/2016 8:24 AM EDT 10/15/2016 8:32 AM EDT Deena Waldron MD HEMATOLOGY ORDERABLES Final R esult Performing Organization Address City/[facility]/[place] [address] * CBC WITH AUTO DIFF (10/15/2016 8:24 AM EDT) [facility] WBC 8.2 4.0 - 11.0 x10(3)/mcL [facility] RBC 4.32 3.80 - 5.10 x10(6)/mcL [facility] Hgb 12.5 12.0 - 15.6 gm/dL [facility] Hct 38.0 35.7 - 45.9 % [facility] MCV 87.8 82.5 - 99.8 fL [facility] MCH 29.0 27.0 - 34.3 pg [facility] MCHC 33.0 32.1 - 35.3 gm/dL [facility] RDW 14.8 11.5 - 15.0 % [facility] Platelet 158 144 - 423 x10(3)/mcL [facility] MPV 9.0 6.8 - 10.8 fL [facility] Blood specimen (specimen) UPPER LIMB STRUCTURE / Unknown 10/15/2016 8:24 AM EDT 10/15/2016 8:32 AM EDT us Deena Waldron MD HEMATOLOGY ORDERABLES Final R esult [facility] [address] [place] [address] * (ABNORMAL) BASIC METABOLIC PANEL (10/15/2016 6:05 AM EDT) [facility] Sodium 140 136 - 145 mmol/L [facility] Potassium 5.1(H) 3.5 - 5.0 mmol/L [facility] Chloride 100 98 - 107 mmol/L [facility] Total CO2 24 22 - 29 mmol/L [facility] Anion Gap 16 7 - 16 mmol/L [facility] Calcium 9.1 8.8 - 10.2 mg/dL [facility] Glucose Lvl 181(H) 82 - 100 mg/dL [facility] BUN 27(H) 8 - 23 mg/dL [facility] Creatinine 1.63(H) 0.51 - 1.30 mg/dL [facility] GFR Afr Am 38 [facility] GFR Non Afr Am 32 [facility] Blood specimen (specimen) UPPER LIMB STRUCTURE / Unknown 10/15/2016 6:05 AM EDT 10/15/2016 6:40 AM EDT us Deena Waldron MD CHEMISTRY ORDERABLES Edited R esult - Final Performing Organization Address [facility] Co de Phone Number [facility] [address] [place] [address] * SCANNED RHYTHM STRIPS (10/15/2016 5:52 AM EDT) Anatomical Region Laterality Modality Other 10/15/2016 5:52 AM EDT us Unknown Unknown IMG ECG ORDERABLES Final Result * SCANNED EKG (10/14/2016 10:55 PM EDT) Anatomical Region Laterality Modality Other 10/14/2016 10:5 5 PM EDT us Unknown Unknown IMG ECG ORDERABLES Final Result * (ABNORMAL) GLUCOSE METER POC (10/14/2016 8:35 PM EDT) Glucose Meter POC 219(H) 70 - 100 mg/dL [facility] Sample Type Capillary [facility] Patient Status Non-Critical Patient [facility] Blood specimen (specimen) 10/14/2016 8:35 PM EDT 10/14/2016 8:35 PM EDT us Deena Waldron MD POINT OF CARE TEST ORDERABLES Final Result Performing Organization Address [facility] Co de Phone Number [facility] [address] [place] [address] * (ABNORMAL) GLUCOSE METER POC (10/14/2016 6:34 PM EDT) Glucose Meter POC 285(H) 70 - 100 mg/dL [facility] Sample Type Capillary [facility] PO[facility] T [facility] Patient Status Non-Critical Patient [facility] Blood specimen (specimen) 10/14/2016 6:34 PM EDT 10/14/2016 6:34 PM EDT us Deena Waldron MD POINT OF CARE TEST ORDERABLES Final Result Performing Organization Address [facility] de Phone Number [facility] [address] [place] [address] [place] [address] * (ABNORMAL) GLUCOSE METER POC (10/14/2016 12:57 PM EDT) Glucose Meter POC 120(H) 70 - 100 mg/dL [facility] POINT [facility] Sample Type Capillary [facility] POIN T OF [facility] Patient Status Non-Critical Patient [facility] Blood specimen (specimen) 10/14/2016 12:57 PM EDT 10/14/2016 12:57 PM EDT us Deena Waldron MD POINT OF CARE TEST ORDERABLES Final Result Performing Organization Address [facility] de Phone Number [address] [place] [address] * SCANNED RHYTHM STRIPS (10/14/2016 9:52 AM EDT) Anatomical Region Laterality Modality Other 10/14/2016 9:52 AM EDT us Unknown Unknown IMG ECG ORDERABLES Final Result * (ABNORMAL) GLUCOSE METER POC (10/14/2016 8:40 AM EDT) Glucose Meter POC 228(H) 70 - 100 mg/dL [facility] Sample Type Capillary [facility] PO[facility] T [facility]ARE [facility] Patient Status Non-Critical Patient [facility] Blood specimen (specimen) 10/14/2016 8:40 AM EDT 10/14/2016 8:40 AM EDT us Deena Waldron MD POINT OF CARE TEST ORDERABLES Final Result Performing Organization Address [facility] de Phone Number [facility] [address] [place] [address] * DIFFERENTIAL (10/14/2016 6:29 AM EDT) [facility] Neut Percent 73.4 % [facility] Lymph Percent 16.5 % [facility] [place] Percent 6.4 % [facility] Eos Percent 3.0 % [facility] Baso Percent 0.7 % [facility] Neut# 5.4 1.8 - 7.7 x10(3)/mcL [facility] Lymph# 1.2 0.6 - 4.8 x10(3)/mcL [facility] [place]# 0.5 0.0 - 1.3 x10(3)/mcL [facility] Eos# 0.2 0.0 - 0.5 x10(3)/mcL [facility] Baso# 0.1 0.0 - 0.2 x10(3)/[facility] LABORATORY Blood specimen (specimen) 10/14/2016 6:29 AM EDT 10/14/2016 6:35 AM EDT Deena Waldron MD HEMATOLOGY ORDERABLES Final R esult Performing Organization Address [facility] Co de Phone Number [facility] [address] [place] [address] * CBC WITH AUTO DIFF (10/14/2016 6:29 AM EDT) [facility] WBC 7.4 4.0 - 11.0 x10(3)/mcL [facility] RBC 4.40 3.80 - 5.10 x10(6)/[facility] LABORATORY Hgb 12.9 12.0 - 15.6 gm/dL [facility] Hct 38.6 35.7 - 45.9 % [facility] MCV 87.7 82.5 - 99.8 fL [facility] MCH 29.2 27.0 - 34.3 pg [facility] MCHC 33.4 32.1 - 35.3 gm/dL [facility] RDW 14.7 11.5 - 15.0 % [facility] Platelet 154 144 - 423 x10(3)/mcL [facility] MPV 9.6 6.8 - 10.8 fL [facility] Blood specimen (specimen) UPPER LIMB STRUCTURE / Unknown 10/14/2016 6:29 AM EDT 10/14/2016 6:35 AM EDT us Deena Waldron MD HEMATOLOGY ORDERABLES Final R esult Performing Organization Address [facility] Co de Phone Number [facility] [address] [place] [address] * (ABNORMAL) BASIC METABOLIC PANEL (10/14/2016 6:29 AM EDT) Sodium 142 136 - 145 mmol/L [facility] Potassium 4.7 3.5 - 5.0 mmol/L [facility] Chloride 101 98 - 107 mmol/L [facility] Total CO2 26 22 - 29 mmol/L [facility] Anion Gap 15 7 - 16 mmol/L [facility] Calcium 9.3 8.8 - 10.2 mg/dL [facility] Glucose Lvl 250(H) 82 - 100 mg/dL [facility] BUN 22 8 - 23 mg/dL [facility] Creatinine 1.50(H) 0.51 - 1.30 mg/dL [facility] GFR Non Afr Am 35 [facility] Blood specimen (specimen) UPPER LIMB STRUCTURE / Unknown 10/14/2016 6:29 AM EDT 10/14/2016 6:34 AM EDT us Deena Waldron MD CHEMISTRY ORDERABLES Edited R esult - Final Performing Organization Address [facility] Co de Phone Number [facility] [address] [place] [address] * SCANNED RHYTHM STRIPS (10/14/2016 5:04 AM EDT) Anatomical Region Laterality Modality Other 10/14/2016 5:04 AM EDT us Unknown Unknown IMG ECG ORDERABLES Final Result * EK EKG 12 LEAD (10/14/2016 12:05 AM EDT) Anatomical Region Laterality Modality Electrocardiogra phy 10/14/2016 6:36 AM EDT Impressions 10/14/2016 7:11 AM EDT ? Stationary ECG Study ?Lupus [place] ? Interpretive Statements ? SINUS RHYTHM INFERIOR MYOCARDIAL INFARCTION, OF INDETERMINATE AGE ANTEROSEPTAL MYOCARDIAL INFARCTION, OF INDETERMINATE AGE no diagnostic change from previous tracing Electronically Signed On 10-14-2016 7:11:[address] MD Narrative Procedure Note Davi Street MD - 10/14/2016 IMPRESSION Stationary ECG Study [facility] Interpretive Statements SINUS RHYTHM INFERIOR MYOCARDIAL INFARCTION, OF INDETERMINATE AGE ANTEROSEPTAL MYOCARDIAL INFARCTION, OF INDETERMINATE AGE no diagnostic change from previous tracing Electronically Signed On 10-14-2016 7:11:[address] MD us Vero Dumas MD IMG ECG ORDERABLES Final Res ult * TROPONIN-T (10/13/2016 11:30 PM EDT) Pathologist [facility] Troponin-T <0.01 <=0.00 ng/mL [facility] Comment: Values > or = 0.01 ng/mL have been shown to have prognostic value. Blood specimen (specimen) 10/13/2016 11:30 PM EDT 10/13/2016 11:30 PM EDT us Vero Dumas MD CHEMISTRY ORDERABLES Final R esult Performing Organization Address [facility]/[place] [address] * (ABNORMAL) GLUCOSE METER POC (10/13/2016 7:39 PM EDT) [facility] Glucose Meter POC 177(H) 70 - 100 mg/dL [facility] Patient Status Non-Critical Patient [facility] Blood specimen (specimen) 10/13/2016 7:39 PM EDT 10/13/2016 7:39 PM EDT us Deena Waldron MD POINT OF CARE TEST ORDERABLES Final Result Performing Organization Address [facility] Co de Phone Number [facility] [address] [place] [address] * (ABNORMAL) THYROID STIMULATING HORMONE (10/13/2016 7:00 PM EDT) Pathologist [facility] TSH 0.043(L) 0.270 - 4.200 mcIU/mL [facility] Blood specimen (specimen) UPPER LIMB STRUCTURE / Unknown 10/13/2016 7:00 PM EDT 10/13/2016 7:15 PM EDT us Deena Waldron MD CHEMISTRY ORDERABLES Final Re sult Performing Organization Address [facility]/ZIP Co de Phone Number [address] [address] * TROPONIN-T (10/13/2016 7:00 PM EDT) [facility] Troponin-T <0.01 <=0.00 ng/mL [facility] Comment: Values > or = 0.01 ng/mL have been shown to have prognostic value. Blood specimen (specimen) 10/13/2016 7:00 PM EDT 10/13/2016 7:02 PM EDT Vero Dumas MD CHEMISTRY ORDERABLES Final R esult Performing Organization Address City/[facility]/[place] [address] * DIFFERENTIAL (10/13/2016 4:40 PM EDT) [facility] Neut Percent 70.7 % [facility] Lymph Percent 19.2 % [facility] [place] Percent 6.2 % [facility] Eos Percent 2.7 % [facility] Baso Percent 1.2 % [facility] Neut# 5.9 1.8 - 7.7 x10(3)/[facility] LABORATORY Lymph# 1.6 0.6 - 4.8 x10(3)/[facility] LABORATORY [place]# 0.5 0.0 - 1.3 x10(3)/[facility] LABORATORY Eos# 0.2 0.0 - 0.5 x10(3)/[facility] LABORATORY Baso# 0.1 0.0 - 0.2 x10(3)/[facility] LABORATORY Blood specimen (specimen) 10/13/2016 4:40 PM EDT 10/13/2016 4:43 PM EDT Vero Dumas MD HEMATOLOGY ORDERABLES Final Result Performing Organization Address City/[facility] [place] [address] * TROPONIN-T (10/13/2016 4:40 PM EDT) [facility] Troponin-T <0.01 <=0.00 ng/mL [facility] Comment: Values > or = 0.01 ng/mL have been shown to have prognostic value. Blood specimen (specimen) 10/13/2016 4:40 PM EDT 10/13/2016 4:43 PM EDT Vero Dumas MD CHEMISTRY ORDERABLES Final R esult Performing Organization Address [facility] [place] [address] * NT PROBNP (10/13/2016 4:40 PM EDT) Pathologist [facility] NT Pro-BNP 153 <=319 pg/mL [facility] Comment: An NT pro-BNP level less than 300 pg/mL in any patient, regardless of age, Effectively rules out acute CHF with a 99% negative predictive value. Blood specimen (specimen) UPPER LIMB STRUCTURE / Unknown 10/13/2016 4:40 PM EDT 10/13/2016 4:43 PM EDT Vero Dumas MD CHEMISTRY ORDERABLES [facility] Performing Organization Address [facility] [place] [address] * (ABNORMAL) COMPREHENSIVE METABOLIC PANEL (10/13/2016 4:40 PM EDT) [facility] Sodium 142 136 - 145 mmol/L [facility] Potassium 4.2 3.5 - 5.0 mmol/L [facility] Chloride 102 98 - 107 mmol/L [facility] Total CO2 27 22 - 29 mmol/L [facility] Anion Gap 13 7 - 16 mmol/L [facility] Calcium 9.4 8.8 - 10.2 mg/dL [facility] Glucose Lvl 187(H) 82 - 100 mg/dL [facility] BUN 21 8 - 23 mg/dL [facility] Creatinine 1.26 0.51 - 1.30 mg/dL [facility] Albumin 4.0 3.2 - 4.6 gm/dL [facility] Total Protein 7.1 6.4 - 8.3 gm/dL [facility] Bili Total 0.4 0.1 - 1.3 mg/dL [facility] AST 11 <=40 IU/L [facility] ALT 10 <=41 IU/L [facility] Alk Phos 152(H) 35 - 104 IU/L [facility] GFR [facility]fr Am [facility] GFR Non Afr Am 43 [facility] Blood specimen (specimen) UPPER LIMB STRUCTURE / Unknown 10/13/2016 4:40 PM EDT 10/13/2016 4:43 PM EDT us Vero Dumas MD CHEMISTRY ORDERABLES Edited Result - Final Performing Organization Address City/[facility]/ZIP Co de Phone Number [facility] [address] [place] [address] * CBC WITH AUTO DIFF (10/13/2016 4:40 PM EDT) WBC 8.4 4.0 - 11.0 x10(3)/mcL [facility] RBC 4.26 3.80 - 5.10 x10(6)/mcL [facility] Hgb 12.4 12.0 - 15.6 gm/dL [facility] Hct 36.9 35.7 - 45.9 % [facility] MCV 86.6 82.5 - 99.8 fL [facility] MCH 29.2 27.0 - 34.3 pg [facility] MCHC 33.7 32.1 - 35.3 gm/dL [facility] RDW 14.6 11.5 - 15.0 % [facility] Platelet 190 144 - 423 x10(3)/mcL [facility] MPV 9.2 6.8 - 10.8 fL [facility] Blood specimen (specimen) UPPER LIMB STRUCTURE / Unknown 10/13/2016 4:40 PM EDT 10/13/2016 4:43 PM EDT us Vero Dumas MD HEMATOLOGY ORDERABLES Final Result [facility] [address] [place] [address] * XR CHEST AP PORTABLE (10/13/2016 4:25 PM EDT) Anatomical Region Laterality Modality Chest Radiographic Whit ging 10/13/2016 4:25 PM EDT Impressions 10/13/2016 4:31 PM EDT No acute cardiopulmonary process. Limited study Narrative 10/13/2016 4:31 PM EDT XR CHEST AP PORTABLE, ??10/13/2016 4:25 PM CLINICAL HISTORY: ??-CHEST PAIN COMPARISON: ??August 2016 PROCEDURE COMMENTS: Frontal chest radiograph. ?? FINDINGS: ?? The study is limited by patient body habitus. Stable cardiomegaly. Lungs grossly clear although bases are of limited assessment due to the technical nature of the film Procedure Note Mayo Dominguez MD - 10/13/2016 XR CHEST AP PORTABLE, 10/13/2016 4:25 PM CLINICAL HISTORY: -CHEST PAIN COMPARISON: August 2016 PROCEDURE COMMENTS: Frontal chest radiograph. FINDINGS: The study is limited by patient body habitus. Stable cardiomegaly. Lungsgrossly clear although bases are of limited assessment due to the technical natureof the film IMPRESSION: No acute cardiopulmonary process. Limited study us Vero Dumas MD IMG DIAGNOSTIC IMAGING ORDER DEBBIE Final Result * EK EKG 12 LEAD (10/13/2016 3:33 PM EDT) Anatomical Region Laterality Modality Electrocardiogra phy 10/13/2016 3:35 PM EDT Impressions 10/13/2016 3:43 PM EDT ? Stationary ECG Study ?[facility] ? Interpretive Statements ? 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 MYOCARDIAL INFARCTION, PROBABLY OLD no diagnostic change other than rate Electronically Signed On 10-13-2016 15:43:[address] MD Narrative Procedure Note Davi Street MD - 10/13/2016 IMPRESSION [facility] 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 MYOCARDIAL INFARCTION, PROBABLY OLD no diagnostic change other than rate Electronically Signed On 10-13-2016 15:43:[address] MD us Vero Dumas MD IMG ECG ORDERABLES Final Res ult documented in this encounter Visit Diagnoses Diagnosis Angina pectoris (HCC)- Primary Other and unspecified angina pectoris Chest pain, unspecified type JACK (acute kidney injury) (HCC) Acute kidney failure, unspecified Hemiparesis affecting left side as late effect of stroke (HCC) Hemiplegia affecting unspecified side, late effect of cerebrovascular disease History of CVA (cerebrovascular accident) Transient ischemic attack (TIA), and cerebral infarction without residual deficits Essential hypertension Unspecified essential hypertension Coronary artery disease involving [place] coronary artery of [place] heart with unstable angina pectoris (HCC) Chronic diastolic CHF (congestive heart failure) (HCC) Mood disorder (HCC) Unspecified episodic mood disorder Chest pain, unspecified type documented in this encounter Administered Medications Inactive Administered Medications - up to 1 most recent administrations Medication Order MAR Action Action Date Dose Rate Site 0.9 % NaCl infusion Intravenous, at 50 mL/hr, CONTINUOUS, Starting on Wed10/14/16 at 1545, Until Francine 10/15/16 at 1438 Rate/Dose Verify 10/15/2016 10:28 AM EDT 50 mL/hr 0.9 % NaCl infusion Intravenous, at 150 mL/hr, CONTINUOUS, Starting on Wed10/15/16 at 1230, Until Wed10/15/16 at 2329, If infusion complete, infuse 0.9% Normal Saline at KOR until sheath is removed., Post-op Rate/Dose Change 10/15/2016 12:30 PM EDT 150 mL/hr acetaminophen (TYLENOL) tablet 650 mg 650 mg, Oral, EVERY 4 HOURS PRN, Starting on Wed10/13/16 at 1851, Until Wed10/15/16 at 2329, Pain, Maximum adult dose of acetaminophen is 4000 mg from all sources in 24 hours. Given 10/14/2016 8:22 PM EDT 650 mg ARIPiprazole (ABILIFY) tablet 30 mg 30 mg, Oral, DAILY, First dose on Wed10/14/16 at 0900, Until Discontinued Given 10/15/2016 9:05 AM EDT 30 mg aspirin EC tablet 81 mg 81 mg, Oral, DAILY, First dose on Wed10/14/16 at 0900, Until Discontinued Given 10/15/2016 9:05 AM EDT 81 mg aspirin tablet 325 mg 325 mg, Oral, ONCE, 1 dose, On Wed10/13/16 at 1615 Given 10/13/2016 4:07 PM EDT 325 mg atorvastatin (LIPITOR) tablet 20 mg 20 mg, Oral, NIGHTLY, First dose on Wed10/13/16 at 2100, Until Discontinued Given 10/14/2016 8:22 PM EDT 20 mg atropine injection 0.5 mg 0.5 mg, Intravenous, PRN, Starting on Wed10/15/16 at 1202, Until Wed10/15/16 at 2329, Symptomatic bradycardia, emergency treatment, Administer IV push for symptomatic bradycardia, may repeat every 3-5 minutes to total of 3 mg. buPROPion (WELLBUTRIN SR) SR tablet 150 mg 150 mg, Oral, DAILY, First dose on Wed10/14/16 at 0900, Until Discontinued Given 10/15/2016 9:05 AM EDT 150 mg dextrose 50 % solution 25 g 25 g, Intravenous, PRN, Starting on Wed10/15/16 at 1202, Until Wed10/15/16 at 2329, Low blood sugar, for emergency treatment of profound hypoglycemia, May repeat in 15 minutes. VESICANT dextrose 50 % solution 25 mL 25 mL, Intravenous, PRN, Starting on Wed10/13/16 at 1856, Until Wed10/15/16 at 2329, Low blood sugar, If FSBS less than 70 mg/dl and patient cannot take orally, Check FSBS every 30 minutes and repeat 25 mL of D50 IV push and notify physician if FSBS less than 70 mg/dL VESICANT EPINEPHrine injection 1 mg 1 mg, Intravenous, PRN, Starting on Wed10/15/16 at 1202, Until Wed10/15/16 at 2329, Ventricular fibrillation, Emergency order for V-FIB or Pulseless V-TACH, Emergency order for V-FIB or Pulseless V-TACH, Asystole, PEA. VESICANT fentaNYL (SUBLIMAZE) injection PRN, Starting on Wed10/15/16 at 1130, Until Wed10/15/16 at 1200, Intra-procedure(Cath ) Given 10/15/2016 11:30 AM EDT 50 mcg fUROsemide (LASix) tablet 20 mg 20 mg, Oral, DAILY, First dose on Wed10/14/16 at 0900, Until Discontinued Given 10/15/2016 9:05 AM EDT 20 mg gabapentin (NEURONTIN) capsule 100 mg 100 mg, Oral, 3 TIMES DAILY, First dose on Wed10/13/16 at 2100, Until Discontinued Given 10/15/2016 3:18 PM EDT 100 mg glipiZIDE (GLUCOTROL) tablet 10 mg 10 mg, Oral, 2 TIMES DAILY WITH MEALS, First dose on Wed10/13/16 at 1900, Until Discontinued Given 10/15/2016 9:05 AM EDT 10 mg glucagon (human recombinant) (GLUCAGEN) injection 1 mg 1 mg, Intramuscular, PRN, Starting on Wed10/13/16 at 1856, Until Wed10/15/16 at 2329, Low blood sugar, If FSBS less than 70 mg/dl, patient cannot take orally and without IV access, If patient is without IV access, give Glucagon 1 mg Intramuscularly, insert IV and call physician. heparin 2 units/ml in 0.9% NaCl 500 mL CONTINUOUS PRN, Starting on Wed10/15/16 at 1131, Until Wed10/15/16 at 1200, Intra-procedure(Cath ) New Bag 10/15/2016 11:31 AM EDT 2 'Bag' heparin, porcine (PF) injection 5,000 Units 5,000 Units, Subcutaneous, EVERY 8 HOURS SCHEDULED (3 times per day), First dose on Wed10/14/16 at 1515, Until Discontinued, Hold Heparin for platelet count less than 100,000 Given 10/15/2016 3:18 PM EDT 5,000 Units Abdominal Tissue insulin aspart (NovoLOG) injection 1-5 Units 1-5 Units, Subcutaneous, 4 TIMES DAILY WITH MEALS, First dose on Wed10/13/16 at 2100, Until Discontinued, Low dose algorithm: FSBS? Additional [...] hours. Waste Sort Code = BKC Given 10/14/2016 9:58 PM EDT 1 Units Left Arm insulin glargine (LANTUS) injection 15 Units 15 Units, Subcutaneous, EVERY EVENING (INSULIN), First dose on Wed10/13/16 at 1930, Until Discontinued, Do not mix with other insulins Waste Sort Code = BKC Given 10/14/2016 6:39 PM EDT 15 Units Abdominal Tissue iopamidol (ISOVUE-370) 76 % injection (LOW) PRN, Starting on Wed10/15/16 at 1158, Until Wed10/15/16 at 1200, Intra-procedure(Cath ) Given 10/15/2016 11:58 AM EDT 130 mL isosorbide mononitrate (IMDUR) CR tablet 60 mg 60 mg, Oral, DAILY, First dose on Wed10/13/16 at 1900, Until Discontinued Given 10/15/2016 9:05 AM EDT 60 mg lidocaine 20 mg/mL (2 %) injection PRN, Starting on Wed10/15/16 at 1132, Until Wed10/15/16 at 1200, Intra-procedure(Cath ) Given 10/15/2016 11:32 AM EDT 10 mL lisinopril (PRINIVIL;ZESTril) tablet 5 mg 5 mg, Oral, DAILY, First dose on Wed10/13/16 at 1900, Until Discontinued, +++ACEI Medication+++ Given 10/15/2016 9:05 AM EDT 5 mg LORazepam (ATIVAN) tablet 1 mg 1 mg, Oral, EVERY 4 HOURS PRN, Starting on Wed10/15/16 at 1215, Until Wed10/15/16 at 2329, Anxiety, Restlessness, Post-op metoclopramide HCl (REGLAN) injection 10 mg 10 mg, Intravenous, EVERY 6 HOURS PRN, Starting on Wed10/15/16 at 1215, Until Wed10/15/16 at 2329, Nausea, Post-op metoprolol (LOPRESSOR) tablet 25 mg 25 mg, Oral, 2 TIMES DAILY, First dose on Wed10/13/16 at 2100, Until Discontinued Given 10/14/2016 8:40 AM EDT 25 mg metoprolol (LOPRESSOR) tablet 50 mg 50 mg, Oral, 2 TIMES DAILY, First dose (after last modification) on Wed10/14/16 at 2100, Until Discontinued, Hold for HR under 60 Given 10/15/2016 9:05 AM EDT 50 mg miconazole (MICATIN) 2 % powder Topical, 2 TIMES DAILY, 84 doses, First dose on Wed10/15/16 at 2100, Last dose on Wed11/26/16 at 0900, Application site: skin folds midazolam (VERSED) injection PRN, Starting on Wed10/15/16 at 1131, Until Wed10/15/16 at 1200, Intra-procedure(Cath ) Given 10/15/2016 11:32 AM EDT 1 mg morphine injection 4 mg 4 mg, Intravenous, ONCE, 1 dose, On Wed10/13/16 at 1745 Given 10/13/2016 5:49 PM EDT 4 mg NIFEdipine (PROCARDIA XL) CR tablet 90 mg 90 mg, Oral, DAILY, First dose on Wed10/13/16 at 1900, Until Discontinued Given 10/15/2016 9:05 AM EDT 90 mg nitroGLYCERIN (NITROGLYN) 2 % ointment 1 Inch 1 Inch, Topical, ONCE, 1 dose, On Wed10/13/16 at 1615, Wipe off old dose, apply to chest wall Patch Applied 10/13/2016 4:07 PM EDT 1 Inch nitroglycerin injection PRN, Starting on Wed10/15/16 at 1146, Until Wed10/15/16 at 1200, Intra-procedure(Cath ) Given 10/15/2016 11:46 AM EDT 200 mcg ondansetron (ZOFRAN) injection 4 mg 4 mg, Intravenous, EVERY 6 HOURS PRN, Starting on Wed10/13/16 at 1933, Until Wed10/15/16 at 2329, Nausea ondansetron (ZOFRAN) injection 4 mg 4 mg, Intravenous, ONCE, 1 dose, On Wed10/13/16 at 1745 Given 10/13/2016 5:49 PM EDT 4 mg ondansetron (ZOFRAN) tablet 4 mg 4 mg, Oral, EVERY 6 HOURS PRN, Starting on Wed10/13/16 at 1933, Until Wed10/15/16 at 2329, Nausea oxyCODONE-acetaminop hen (PERCOCET) 5-325 mg per tablet 1 Tab 1 Tablet, Oral, EVERY 4 HOURS PRN, Starting on Wed10/14/16 at 2159, Until Wed10/15/16 at 2329, Pain, Maximum adult dose of acetaminophen is 4000 mg from all sources in 24 hours. Given 10/14/2016 10:26 PM EDT 1 Tablet pantoprazole (PROTONIX) tablet 40 mg 40 mg, Oral, DAILY, First dose on Wed10/13/16 at 1900, Until Discontinued, Do not crush or chew Given 10/15/2016 9:05 AM EDT 40 mg ranolazine (RANEXA) SR tablet 1,000 mg 1,000 mg, Oral, EVERY 12 HOURS SCHEDULED (2 times per day), First dose (after last modification) on Wed10/14/16 at 2100, Until Discontinued Given 10/15/2016 9:05 AM EDT 1,000 mg ranolazine (RANEXA) SR tablet 500 mg 500 mg, Oral, EVERY 12 HOURS SCHEDULED (2 times per day), First dose on Wed10/13/16 at 2100, Until Discontinued Given 10/14/2016 8:40 AM EDT 500 mg documented in this encounter Discontinued Medications Medication Sig Discontinue Reason Start Date End Da te venlafaxine (EFFEXOR-XR) 150 mg Oral Capsule, Sust. Release 24 hr Take 300 mg by mouth nightly. Stop Taking at Discharge 10/15/2016 metoprolol (LOPRESSOR) 25 mg Oral Tablet TAKE 1 TABLET BY MOUTH TWICE A DAY Stop Taking at Discharge 09/22/2016 10/15/2016 amitriptyline (ELAVIL) 75 mg Oral Tablet Take 1 Tab by mouth nightly for 30 days. Stop Taking at Discharge 09/23/2016 10/15/2016 RANEXA 500 mg Oral Tablet Sustained Release 12 hr TAKE ONE TABLET BY MOUTH TWICE DAILY Stop Taking at Discharge 10/02/2016 10/15/2016 RANEXA 500 mg Oral Tablet Sustained Release 12 hr Take 1 Tab by mouth every 12 hours. Stop Taking at Discharge 10/05/2016 10/15/2016 documented as of this encounter Historical Medications * This list may reflect changes made after this encounter. metFORMIN (GLUCOPHAGE) 500 mg Oral Tablet Take 500 mg by mouth 2 times daily. 05/12/2017 buPROPion (WELLBUTRIN SR) 150 mg Oral Tablet Sustained Release 12 hr Take 150 mg by mouth daily. 02/23/2017 added in this encounter Active and Recently Administered Medications Times are shown in EDT. Scheduled Medication Order 10/13/2016 10/14/2016 10/15/2016 ARIPiprazole (ABILIFY) tablet 30 mg 30 mg, Oral, DAILY, First dose on Wed10/14/16 at 0900, Until Discontinued 0840 (Given - Provider: Elvira Moscoso RN) 0905 (Given - Provider: Jesica Osorio RN) aspirin EC tablet 81 mg 81 mg, Oral, DAILY, First dose on Wed10/14/16 at 0900, Until Discontinued 0840 (Given - Provider: Elvira Moscoso RN) 09 (Given - Provider: Jesica Osorio RN) aspirin tablet 325 mg (COMPLETED) 325 mg, Oral, ONCE, 1 dose, On Wed10/13/16 at 1615 1607 (Given - Provider: Joselyn Villanueva RN) atorvastatin (LIPITOR) tablet 20 mg 20 mg, Oral, NIGHTLY, First dose on Wed10/13/16 at 2100, Until Discontinued 2054 (Given - Provider: Marcio De eLón RN) 2021 (Given - Provider: Eliza Jung, ROLF) buPROPion (WELLBUTRIN SR) SR tablet 150 mg 150 mg, Oral, DAILY, First dose on Wed10/14/16 at 0900, Until Discontinued 0840 (Given - Provider: Elvira Moscoso RN) 904 (Given - Provider: Jesica Osorio RN) fentaNYL (SUBLIMAZE) injection 50 mcg 50 mcg, Intravenous, ONCE, 1 dose, On Francine 10/15/16 at 1230, Give 5 minutes prior to sheath removal, Post-op 1230 (Due) fUROsemide (LASix) tablet 20 mg 20 mg, Oral, DAILY, First dose on Wed10/14/16 at 0900, Until Discontinued 0841 (Given - Provider: Elvira Moscoso RN) 904 (Given - Provider: Jesica Osorio RN) gabapentin (NEURONTIN) capsule 100 mg 100 mg, Oral, 3 TIMES DAILY, First dose on Wed10/13/16 at 2100, Until Discontinued 2053 (Given - Provider: Marcio De León RN) 0840 (Given - Provider: Elvira Moscoso RN)1509 (Given - Provider: Elvira Moscoso RN)2020 (Given - Provider: Eliza Jung, ROLF) 09 (Given - Provider: Jesica Osorio RN)151 (Given - Provider: Jesica Osorio RN) glipiZIDE (GLUCOTROL) tablet 10 mg 10 mg, Oral, 2 TIMES DAILY WITH MEALS, First dose on Wed10/13/16 at 1900, Until Discontinued 2053 (Given - Provider: Marcio De León, RN) 0800 (Not Given - Provider: Elvira Moscoso, RN - Reason: NPO)1838 (Given - Provider: Elvira Moscoso, RN) 0905 (Given - Provider: Jesica Osorio, RN)1800 (Due) heparin, porcine (PF) injection 5,000 Units 5,000 Units, Subcutaneous, EVERY 8 HOURS SCHEDULED (3 times per day), First dose on Wed10/14/16 at 1515, Until Discontinued, Hold Heparin for platelet count less than 100,000 1643 (Given - Provider: Elvira Moscoso, RN)2158 (Given - Provider: Eliza Jung, ROLF) 0600 (Canceled Entry - Provider: Eliza Jung RN - Comment: hold for cathlab)1518 (Given - Provider: Jesica Osorio, ROLF) insulin aspart (NovoLOG) injection 1-5 Units 1-5 Units, Subcutaneous, 4 TIMES DAILY WITH MEALS, First dose on Wed10/13/16 at 2100, Until Discontinued, Low dose algorithm: FSBS? Additional [...] least 3 hours. Waste Sort Code = [facility] 2100 (Not Given - Provider: Marcio De León RN - Reason: Order parameters not met - Comment: bs 177 per npo scale) 0849 (Given - Provider: Elvira Moscoso RN)1200 (Not Given - Provider: Elvira Moscoso RN - Reason: NPO)1838 (Given - Provider: Elvira Moscoso RN)2158 (Given - Provider: Eliza Jung RN) 0800 (Not Given - Provider: Jesica Osorio RN - Reason: NPO)1200 (Not Given - Provider: Jesica Osorio RN - Reason: Order parameters not met)1800 (Not Given - Provider: Jesica Osorio RN - Reason: Order parameters not met) insulin glargine (LANTUS) injection 15 Units 15 Units, Subcutaneous, EVERY EVENING (INSULIN), First dose on Wed10/13/16 at 1930, Until Discontinued, Do not mix with other insulins Waste Sort Code = BK 2335 (Given - Provider: Marcio De León, ROLF) 1839 (Given - Provider: Elvira Moscoso RN) 1900 (Due) isosorbide mononitrate (IMDUR) CR tablet 60 mg 60 mg, Oral, DAILY, First dose on Wed10/13/16 at 1900, Until Discontinued 1899 (Hold - Provider: Marcio De León RN - Reason: Other - Comment: Pt already had daily dose) 0840 (Given - Provider: Elvira Moscoso RN) 0905 (Given - Provider: Jesica Osorio, ROLF) lisinopril (PRINIVIL;ZESTril) tablet 5 mg 5 mg, Oral, DAILY, First dose on Wed10/13/16 at 1900, Until Discontinued, +++ACEI Medication+++ 1899 (Hold - Provider: Marcio De León RN - Reason: Other - Comment: Pt already had daily dose) 0840 (Given - Provider: Elvira Moscoso RN) 0905 (Given - Provider: Jesica Osorio RN) metoprolol (LOPRESSOR) tablet 25 mg (CANCELED) 25 mg, Oral, 2 TIMES DAILY, First dose on Wed10/13/16 at 2100, Until Discontinued 2054 (Given - Provider: Marcio De León RN) 0840 (Given - Provider: Elvira Moscoso RN) metoprolol (LOPRESSOR) tablet 50 mg 50 mg, Oral, 2 TIMES DAILY, First dose (after last modification) on Wed10/14/16 at 2100, Until Discontinued, Hold for HR under 60 2020 (Given - Provider: Eliza Jung RN) 0905 (Given - Provider: Jesica Osorio, ROLF) miconazole (MICATIN) 2 % powder Topical, 2 TIMES DAILY, 84 doses, First dose on Wed10/15/16 at 2100, Last dose on Wed11/26/16 at 0900, Application site: skin folds morphine injection 4 mg (COMPLETED) 4 mg, Intravenous, ONCE, 1 dose, On Wed10/13/16 at 1745 1749 (Given - Provider: Joselyn Villanueva, ROLF) NIFEdipine (PROCARDIA XL) CR tablet 90 mg 90 mg, Oral, DAILY, First dose on Wed10/13/16 at 1900, Until Discontinued 1900 (Hold - Provider: Marcio De León RN - Reason: Medication not available) 0840 (Given - Provider: Elvira Moscoso RN) 0905 (Given - Provider: Jesica Osorio, ROLF) nitroGLYCERIN (NITROGLYN) 2 % ointment 1 Inch (COMPLETED) 1 Inch, Topical, ONCE, 1 dose, On Wed10/13/16 at 1615, Wipe off old dose, apply to chest wall 1607 (Patch Applied - Provider: Joselyn Villanueva, ROLF) ondansetron (ZOFRAN) injection 4 mg (COMPLETED) 4 mg, Intravenous, ONCE, 1 dose, On Wed10/13/16 at 1745 1749 (Given - Provider: Joselyn Villanueva, ROLF) pantoprazole (PROTONIX) tablet 40 mg 40 mg, Oral, DAILY, First dose on Wed10/13/16 at 1900, Until Discontinued, Do not crush or chew 2055 (Given - Provider: Marcio De León RN) 0840 (Given - Provider: Elvira Moscoso RN) 0905 (Given - Provider: Jesica Osorio, ROLF) ranolazine (RANEXA) SR tablet 1,000 mg 1,000 mg, Oral, EVERY 12 HOURS SCHEDULED (2 times per day), First dose (after last modification) on Wed10/14/16 at 2100, Until Discontinued 2021 (Given - Provider: Eliza Jung RN) 0905 (Given - Provider: Jesica Osorio, ROLF) ranolazine (RANEXA) SR tablet 500 mg (CANCELED) 500 mg, Oral, EVERY 12 HOURS SCHEDULED (2 times per day), First dose on Wed10/13/16 at 2100, Until Discontinued 2054 (Given - Provider: Marcio De León RN) 0840 (Given - Provider: Elvira Moscoso RN) Continuous Medication Order 10/13/2016 10/14/2016 10/15/2016 0.9 % NaCl infusion (CANCELED) Intravenous, at 50 mL/hr, CONTINUOUS, Starting on Wed10/14/16 at 1545, Until Wed10/15/16 at 1438 2026 (New Bag - Provider: Eliza Jung, ROLF) 1028 (Rate/Dose Verify - Provider: Elvis Case, ROLF)1230 (Stopped - Provider: Elvis Case RN) 0.9 % NaCl infusion Intravenous, at 150 mL/hr, CONTINUOUS, Starting on Wed10/15/16 at 1230, Until Wed10/15/16 at 2329, If infusion complete, infuse 0.9% Normal Saline at KOR until sheath is removed., Post-op 1230 (Rate/Dose Ramirez ge - Provider: Elvis Case, ROLF)1429 (Stopped - Provider: Jesica Osorio, ROLF) PRN Medication Order 10/13/2016 10/14/2016 10/15/2016 acetaminophen (TYLENOL) tablet 650 mg 650 mg, Oral, EVERY 4 HOURS PRN, Starting on Wed10/13/16 at 1851, Until Wed10/15/16 at 2329, Pain, Maximum adult dose of acetaminophen is 4000 mg from all sources in 24 hours. 2021 (Given - Provider: Eliza Jung RN) atropine injection 0.5 mg 0.5 mg, Intravenous, PRN, Starting on Wed10/15/16 at 1202, Until Francine 10/15/16 at 2329, Symptomatic bradycardia, emergency treatment, Administer IV push for symptomatic bradycardia, may repeat every 3-5 minutes to total of 3 mg. dextrose 50 % solution 25 g 25 g, Intravenous, PRN, Starting on Wed10/15/16 at 1202, Until Francine 10/15/16 at 2329, Low blood sugar, for emergency treatment of profound hypoglycemia, May repeat in 15 minutes. VESICANT dextrose 50 % solution 25 mL 25 mL, Intravenous, PRN, Starting on Wed10/13/16 at 1856, Until Wed10/15/16 at 2329, Low blood sugar, If FSBS less than 70 mg/dl and patient cannot take orally, Check FSBS every 30 minutes and repeat 25 mL of D50 IV push and notify physician if FSBS less than 70 mg/dL VESICANT EPINEPHrine injection 1 mg 1 mg, Intravenous, PRN, Starting on Wed10/15/16 at 1202, Until Francine 10/15/16 at 2329, Ventricular fibrillation, Emergency order for V-FIB or Pulseless V-TACH, Emergency order for V-FIB or Pulseless V-TACH, Asystole, PEA. VESICANT fentaNYL (SUBLIMAZE) injection (CANCELED) PRN, Starting on Wed10/15/16 at 1130, Until Wed10/15/16 at 1200, Intra-procedure(Cath) 1130 (Given - Provid er: Katheryn Moncada RN) glucagon (human recombinant) (GLUCAGEN) injection 1 mg 1 mg, Intramuscular, PRN, Starting on Wed10/13/16 at 1856, Until Wed10/15/16 at 2329, Low blood sugar, If FSBS less than 70 mg/dl, patient cannot take orally and without IV access, If patient is without IV access, give Glucagon 1 mg Intramuscularly, insert IV and call physician. heparin 2 units/ml in 0.9% NaCl 500 mL (CANCELED) CONTINUOUS PRN, Starting on Wed10/15/16 at 1131, Until Francine 10/15/16 at 1200, Intra-procedure(Cath) 1131 (New Bag - Provider: Katheryn Moncada RN)1600 (IV Stopped by Other - Provider: Jesica Osorio RN) iopamidol (ISOVUE-370) 76 % injection (LOW) (CANCELED) PRN, Starting on Wed10/15/16 at 1158, Until Wed10/15/16 at 1200, Intra-procedure(Cath) 1158 (Given - Provid er: Kaushik Perea MD) lidocaine 20 mg/mL (2 %) injection (CANCELED) PRN, Starting on Francine 10/15/16 at 1132, Until Francine 10/15/16 at 1200, Intra-procedure(Cath) 1132 (Given - Provid er: Kaushik Perea MD) LORazepam (ATIVAN) tablet 1 mg 1 mg, Oral, EVERY 4 HOURS PRN, Starting on Francine 10/15/16 at 1215, Until Francine 10/15/16 at 2329, Anxiety, Restlessness, Post-op metoclopramide HCl (REGLAN) injection 10 mg 10 mg, Intravenous, EVERY 6 HOURS PRN, Starting on Francine 10/15/16 at 1215, Until Francine 10/15/16 at 2329, Nausea, Post-op midazolam (VERSED) injection (CANCELED) PRN, Starting on Francine 10/15/16 at 1131, Until Francine 10/15/16 at 1200, Intra-procedure(Cath) 1131 (Given - Provid er: Katheryn Moncada RN)1132 (Given - Provider: Katheryn Moncada RN) nitroGLYCERIN (NITROSTAT) SL tablet 0.4 mg 0.4 mg, Sublingual, EVERY 5 MIN PRN, Starting on e 10/13/16 at 1852, Until Francine 10/15/16 at 2329, Chest pain, 0.4 mg = 1 Tab sublingual q5 min x 3 for CP, then notify MD if unrelieved - hold if SBP less than 90. Administer for angina/chest pain prior to administration of analgesics for angina. nitroglycerin injection (CANCELED) PRN, Starting on Francine 10/15/16 at 1146, Until Francine 10/15/16 at 1200, Intra-procedure(Cath) 1146 (Given - Provid er: Kaushik Perea MD) ondansetron (ZOFRAN) injection 4 mg(Linked Group 1) 4 mg, Intravenous, EVERY 6 HOURS PRN, Starting on Wed10/13/16 at 1933, Until Francine 10/15/16 at 2329, Nausea ondansetron (ZOFRAN) tablet 4 mg(Linked Group 1) 4 mg, Oral, EVERY 6 HOURS PRN, Starting on Wed10/13/16 at 1933, Until Wed10/15/16 at 2329, Nausea oxyCODONE-acetaminophen (PERCOCET) 5-325 mg per tablet 1 Tab 1 Tablet, Oral, EVERY 4 HOURS PRN, Starting on Wed10/14/16 at 2159, Until Wed10/15/16 at 2329, Pain, Maximum adult dose of acetaminophen is 4000 mg from all sources in 24 hours. 2226 (Given - Provider: Eliza Jung RN) sodium chloride 0.9% IV line flush 50 mL 50 mL, Intravenous, at 999 mL/hr, PRN, Starting on Wed10/13/16 at 1601, Until Wed10/15/16 at 1600, Line Care, Flush with 50 mL after IVPB to insure complete administration of the dose. May use the saline infusion to back flush IVPB tubing as needed., Use this order to document priming and flushing IV line after medication administration. sodium chloride 0.9% syringe 5-10 mL 5-10 mL, Intravenous, PRN, Starting on Wed10/13/16 at 1601, Until Wed10/15/16 at 1600, Line Care, Flush with 5 mL saline pre/post IVP, and 5 mL prior to IVPB or blood product administration. Protocol for PERIPHERAL IV saline lock maintenance, flush with 3-5 mL saline syringe every 8 hours., Flush every shift or after IV medication Linked Groups Order Group 1: ondansetron (ZOFRAN) tablet 4 mgJump to med 4 mg, Oral, EVERY 6 HOURS PRN, Starting on Wed10/13/16 at 1933, Until Wed10/15/16 at 2329, Nausea Or ondansetron (ZOFRAN) injection 4 mgJump to med 4 mg, Intravenous, EVERY 6 HOURS PRN, Starting on Wed10/13/16 at 1933, Until Wed10/15/16 at 2329, Nausea documented in this encounter Orders Medications Ordered That Gaurav ht Not Have Been Administered Count Last Ordered Date First Ordered Date atropine injection 0.5 mg 1 10/15/2016 dextrose 50 % solution 25 g 1 10/15/2016 EPINEPHrine injection 1 mg 1 10/15/2016 fentaNYL (SUBLIMAZE) injection 50 mcg 1 12/2016 LORazepam (ATIVAN) tablet 1 mg 1 10/15/2016 metoclopramide HCl (REGLAN) injection 10 mg 1 10/15/2016 miconazole (MICATIN) 2 % powder 1 7 0.9 % NaCl infusion 1 10/14/2016 dextrose 50 % solution 25 mL 1 10/13/2016 glucagon (human recombinant) (GLUCAGEN) injection 1 mg 1 10/13/2016 nitroGLYCERIN (NITROGLYN) 2 % ointment 1 Inch 1 10/13/2016 nitroGLYCERIN (NITROSTAT) SL tablet 0.4 mg 1 10/13/2016 ondansetron (ZOFRAN) injection 4 mg 1 10/13 ondansetron (ZOFRAN) tablet 4 mg 1 10/14/19 sodium chloride 0.9% IV line flush 50 mL 1 10/13/2016 sodium chloride 0.9% syringe 5-10 mL 1 10/2016 Procedures Count Last Ordered Date First Orde red Date CASE REQUEST CONCRETE TESTER 1 10/14/2016 Nursing Count Last Ordered Date First Orde red Date ADMISSION 1 10/13/2016 Consult Count Last Ordered Date First Orde red Date IP CONSULT TO CARDIOLOGY 1 10/13/2016 documented in this encounter Care Teams Shaping Machine Tender Relationship Specialty Start Date End Date Sharee Segovia APRN [address] [place] [id number] PCP - General Nurse Practitioner-Family 09/21/16 documented as of this encounter
--- OUTSIDE RECORDS SUMMARY | 2024-02-16 14:59 | XMS_ITS | Encounter Summary ---
Author Organization [facility] [place] [address] Care Team Providers Care Poll Watcher Name Role Phone Sharee Segovia APRN Primary Care Provider [phone] Reason for Visit * Reason Comments Medication Refill Encounter Details Date Type Department Care Team (Late st Contact Info) Description 09/22/2016 Refill SEP [facility] [address] [place] [address] Joanna Hitchcock MD [...] 1 Tab by mouth daily. 14 Tab 09/22/2016 10/02/2016 documented in this encounter Plan of Treatment [...] ideal body weight General No Silva Mathew, RMRonaldo HEMOGLOBIN A1C < 7.0 Result Component 6.6( 9 9:49 AM EST) No Silva Mathew ROSIA documented as of this encounter Visit Diagnoses Not on filedocumented in this encounter Discontinued Medications Medication Sig Discontinue Reason Start Date End Da te isosorbide mononitrate (IMDUR) 60 mg Oral Tablet Sustained Release 24 hr Take 1 Tab by mouth daily. Reorder 06/24/2016 09/22/2016 documented as of this encounter Care Teams Poll Watcher Relationship Specialty Start Date End Date Sharee Segovia APRN [address] [place] [phone] PCP - General Nurse Practitioner-Family 09/21/16 documented as of this encounter
--- OUTSIDE RECORDS SUMMARY | 2024-02-16 14:59 | XMS_ITS | Encounter Summary ---
Author [place] [address] Care Team Providers Care Excel Developer Name Role Phone Sharee Segovia APRN Primary Care Provider [phone] Reason for Visit * Reason Comments Chest Pain Arrived via [facility] 4 Baby Asa, 3 Nitro given via Squad * Auth/Cert/Inpt Specialty Diagnoses / Procedures Referred By Contac t Referred To Contact Diagnoses Chest pain, unspecified type Referral ID Status Reason Start Date Expiration Date Visits Re quested Visits Authorized [id number] 1 1 Encounter Details Date Type Department Care Team (Late st Contact Info) Description 10/13/2016 3:30 PM EDT - 10/15/2016 7:29 PM EDT Emergency [place] [address] Vero Dumas MD Hemmer, Amanda A, MD [address] [place] [address] Chest pain, unspecified type (Primary Dx); JACK (acute kidney injury) ([facility]) Discharge Disposition: Home or Self Care Social [...] Sign Reading Time Taken Comments Blood Pressure 128/64 10/15/2016 3:00 PM EDT Pulse 58 10/15/2016 3:00 PM EDT Temperature 36.5 ??C (97.7 ??F) 10/15/2016 1:34 PM ED T Respiratory Rate 16 10/15/2016 3:00 PM EDT Oxygen Saturation 93% 10/15/2016 2:29 PM EDT Inhaled Oxygen Concentration - - Weight 116.1 kg (256 lb) 10/13/2016 3:33 PM EDT Height 172.7 cm (5' 8 ) 10/13/2016 3:33 PM EDT Body Mass Index 38.92 10/13/2016 3:33 PM EDT documented in this encounter Discharge Summaries * Deena Waldron MD - 10/15/2016 2:46 PM EDT [facility] Discharge Summary Patient Name: Faby Palm : 1950 Admit Date: 10/13* Discharge Date: 10/15/2016 Admitting Physician: Deena Waldron MD Discharging Physician: Deena Waldron MD Reason for Hospitalization: Active Hospital Problems Mood disorder (HCC) *Angina pectoris (HCC) Chronic diastolic CHF (congestive heart failure) (HCC) 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 * NONSPECIFIC CHEST PAIN (BULGARIAN) * ANGIOGRAM, CARE AFTER, [id number] (BULGARIAN) documented in this encounter Medications at Time [...] Means Destination Comment s Home or Self [facility] home via cab documented in this encounter Progress Notes * Jesica Osorio RN - 10/15/2016 7:14 PM EDT Discharge instructions given to and signed by patient. Patient transported by cab. * Nubia Boyd RN - 10/15/2016 3:44 PM EDT 10/15/16 1542 Assessment Complete Actual Discharge Plan 10/15/16 PT to go back to [facility] by cab that they will pay for per health called set up cab to meet pt at main entrace of the hospital at 1900 pm pt awre rn jesica masters rn labor and delivery aware * Nubia Boyd RN - 10/15/2016 3:06 PM EDT 10/15/16 1456 Assessment Complete Actual Discharge Plan 10/15/16 CC called [facility] [phone] left voice mail message that pt was ready for discharge also call the directors number at [phone] could not leavea voice message as mailbox was full * Bertram Harvey, GANG KNIFE FISH CHOPPER - 10/15/2016 1:43 PM EDT Heart & Vascular Progress Note PATIENT: Faby Palm Primary Junior Staff Accountant: Dr. guardado She has been in the hospital for LOS: 0 days Patient presents to the hospital for: Chief Complaint Patient presents with ??? Chest Pain Arrived via [facility] 4 Baby Asa, 3 Nitro given [...] this adm w unchanged cors- med management [facility] 03-30-15 Left Anterior Descending Mid LAD [...] 10/14/2016 9:57 PM EDT Sent message to [employer]. Patient complaining of headache. Gave 650 mg [...] results reviewed. ASSESSMENT AND PLAN: *Angina pectoris ([facility]) - trop x 1 <0.01, will trend [...] will restart - cardiology increased ranexa JACK ([facility]) - bump in creatinine to 1.5 - will start IVF - check UA ?? Chronic diastolic CHF (congestive heart failure) ([facility]) - echo in July - EF 55-60% - does not appear decompensated at this time - continue lasix, ACEI ?? 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 Hemiparesis affecting left side as late effect of stroke ([facility])/History of CVA (cerebrovascular accident) - ASA, statin ?? Essential hypertension - lasix, lisinopril, metoprolol (increased to 50 mg BID), nifedipine ?? Mood disorder ([facility]) - abilify, wellbutrin - unsure if also on risperdal and effexor, will hold for now ?? DM ([facility]) - lantus 15 units - SSI - [...] the patient at the bedside she lives [facility] she needs assistance she uses a walker and gets [facility] medicatins [facility] the [facility] he will send a cab after me on disposition Completed by CC/SW Yes Discharge to Assisted living Care Coordination Assessment Observation Information Provided to Patient/Family Yes form signed Assessed In person interview with patient Mental Status Alert and oriented Does patient need educational interpreter? No Decision Maker Him/Herself Activities of Daily Living Needs Assistance Living Arrangements Intermediate/Assisted Living Where did the patient come from? [...] RN - 10/13/2016 5:52 PM EDT 10/13/16 1749 ED Screening ED Screening Completed Initial screening complete, post-acute needs identified, assessment to follow (FROM [facility]) Medical Record Reviewed Yes Who you interviewed In person interview with patient;Medical Record review, patient/family unavailable What brought the patient to the ED CHEST PAIN FROM [facility] USES 2WW AND LEFT LOWER LEG/ANKLE BRACE TO AMBULATE HAS PCP RX COVERAGE STAFF ASSISTS WITH ADLS AND ADMINISTERS MEDS TO PT N FACILITY HAS TRANSPORTATION AT D/C? Where did the patient come from? Assisted Living;[facility] Children Activities of Daily Living Needs Assistance Mental Status Alert and oriented Issues with non-compliance No Anticipated post-acute care needs Assisted Living Potential barriers to discharge No Observation Information Provided to Patient/Family Yes form signed (D/W PT NO C/O SIGNED COPY TO ED CHART STAFF AT [facility] GIVES PT HER MEDS) documented in this encounter H&P Notes * Kaushik Perea MD - 10/15/2016 11:25 AM EDT PHYSICIAN IMMEDIATE PRE-PROCEDURE UPDATE H&P and SEDATION ASSESSMENT Risks, benefits, potential complications and alternatives have been discussed with patient and/or patient's legal authorized business representative. HISTORY AND PHYSICAL H&P is less [...] Allergen Reactions ??? Compazine [Prochlorperazine Edisylate] ??? Cornucopia ??? Pentazocine Hcl ??? Prochlorperazine Maleate ??? Talwin [Pentazocine Lactate] Source Note - Kaushik Perea MD - 10/14/2016 9:01 AM EDT Cardiology History and Physical: Faby Palm Today's Date: 10/14/2016 Date of Admission: 10/13/2016 Primary Care Provider: Sharee Segovia ARNP Junior Staff Accountant: None in the office PMH: CAD, HTN, DM, CVA, HLD, CHF, AFL s/p ablation SH: non smoker, no ETOH Cardiac procedures: Stress test 08-01-16: neg for ischemia, EF 65% [facility] 12-29-15 Mid LAD lesion 70% stenosed. [...] Similar pattern back in 2016 a/w her [facility]. Pt describes similar pattern of CP [...] Allergen Reactions ??? Compazine [Prochlorperazine Edisylate] ??? Cornucopia ??? Pentazocine Hcl ??? Prochlorperazine Maleate ??? [...] ??? Alcohol use No Comment: wednesday mass Family History: Family History Problem Relation Age [...] joint pain NEURO: no obvious focal abnormalities Industrial Specialist: SR Vitals: Vitals: 10/13/16 1935 10/13/16 2336 [...] data in the 24 hours ending 10/14/16 09 Weight: Wt Readings from Last 3 Encounters: [...] process EKG: SR w old inferior, anterior MO Assessment: 1. CP: -resolved Dull pressure, heavy [...] warranted Cr 1.50 GFR 35 2. CAD [facility] 03-30-15 Left Anterior Descending Mid LAD [...] ( dr Tee) -maintaining SR -off AC [id number] Score Congestive heart failure 1 Hypertension 1 Age older than 75y (2pts) 0 Age 65 to 74y 1 Diabetes mellitus 1 Stroke/TIA/TE (2pts) 2 Vascular disease (prior MO, PAD, or aortic plaque) 1 Sex category (ie, female) 1 Total score: 8/9 5. DM -per primary care 6. CVA, h/o -residual left hemiparesis -cont ASA 7. CHF -chronic diastolic LV dysfunction: EF 65% Echo 06/23/2016 -compensated -cont Lasix, Lisinopril Watch renal Stop NSAIDS 8. Mood disorder -per primary care Plan: -keep NPO til seen by Dr Perea -consideration for [facility] -increase Lopressor 50 mg BID -stop NSAIDS [...] presents with ??? Chest Pain Arrived via [facility] 4 Baby Asa, 3 Nitro given [...] Active Hospital Problems Diagnosis ??? *Angina pectoris ([facility]) ??? Chronic diastolic CHF (congestive heart failure) ([facility]) ??? 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 Hemiparesis affecting left side as late effect of stroke (HCC) ??? History of CVA (cerebrovascular accident) ??? Essential hypertension Past Medical History: Diagnosis Date ??? Atrial flutter ([facility]) EPS, AFL Ablation on 12/31/[address] Tee ??? CHF (congestive heart failure) (HCC) ??? COPD (chronic obstructive pulmonary disease) (HCC) ??? DDD (degenerative disc disease) ??? Diabetes mellitus (HCC) ??? Hypertension ??? RLS (restless legs syndrome) ??? Stroke ([facility]) 2010 left side affected ??? [...] Allergen Reactions ??? Compazine [Prochlorperazine Edisylate] ??? Cornucopia ??? Pentazocine Hcl ??? Prochlorperazine Maleate ??? [...] grandchildren. 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 ([facility]) - angiogram in December showed LAD lesion - ASA, statin, ACEI, BB, imdur, ranexa Hemiparesis affecting left side as late effect of stroke ([facility])/History of CVA (cerebrovascular accident) - ASA, statin Essential hypertension - lasix, lisinopril, metoprolol, nifedipine Mood disorder ([facility]) - abilify, wellbutrin - unsure if also on risperdal and effexor, will hold for now DM ([facility]) - lantus 15 units - SSI - [...] 10/13/2016 Primary Care Provider: Sharee Segovia ARNP Junior Staff Accountant: None in the office PMH: CAD, HTN, DM, CVA, HLD, CHF, AFL s/p ablation SH: non smoker, no ETOH Cardiac procedures: Stress test 08-01-16: neg for ischemia, EF 65% [facility] 12-29-15 Mid LAD lesion 70% stenosed. [...] Similar pattern back in 2016 a/w her [facility]. Pt describes similar pattern of CP [...] Surgeon: Be Brown MD; Location: [facility] ENDOSCOPY; Service: Endoscopy Allergies: Allergies Allergen Reactions ??? Compazine [Prochlorperazine Edisylate] ??? Cornucopia ??? Pentazocine Hcl ??? Prochlorperazine Maleate ??? [...] ??? Alcohol use No Comment: wednesday mass Family History: Family History Problem Relation Age [...] joint pain NEURO: no obvious focal abnormalities Industrial Specialist: SR Vitals: Vitals: 10/13/16 1935 10/13/16 2336 [...] process EKG: SR w old inferior, anterior MO Assessment: 1. CP: -resolved Dull pressure, heavy sensation perist -trop < 0.01 x 3 -no ischemic EKG shifts Stress test 08-01-16--> neg for ischemia, EF 65% Remain NPO til seen by Dr Perea Given CV risk, pattern of angina and recent stress test-- may require [facility] to reevaluate LAD . Pt agrees w POC if angio is warranted Cr 1.50 GFR 35 2. CAD [facility] 03-30-15 Left Anterior Descending Mid LAD [...] ( dr Tee) -maintaining SR -off AC [id number] Score Congestive heart failure 1 Hypertension 1 Age older than 75y (2pts) 0 Age 65 to 74y 1 Diabetes mellitus 1 Stroke/TIA/TE (2pts) 2 Vascular disease (prior MO, PAD, or aortic plaque) 1 Sex category [...] presents with ??? Chest Pain Arrived via [facility] 4 Baby Asa, 3 Nitro given [...] Allergen Reactions ??? Compazine [Prochlorperazine Edisylate] ??? Cornucopia ??? Pentazocine Hcl ??? Prochlorperazine Maleate ??? [...] syringe,safetyneedle 1 mL 30 gauge x 07/21 [facility] Syringe 1 Syringe by [facility].(Non-Drug; Combo Route) route nightly. 08/04/16 Joanna Pierce [...] Percent 70.7 % Lymph Percent 19.2 % Swift Percent 6.2 % Eos Percent 2.7 % Baso Percent 1.2 % Neut# 5.9 1.8 - 7.7 x10(3)/mcL Lymph# 1.6 0.6 - 4.8 x10(3)/mcL Swift# 0.5 0.0 - 1.3 x10(3)/mcL Eos# 0.2 [...] 12:00 PM EDT Chest pain, unspecified type HISTOLOGICAL ILLUSTRATOR HEMODYNAMIC WAVEFORMS Routine 10/15/2016 11:15 AM EDT [...] 10/13/2016 Primary Care Provider: Sharee Segovia ARNP Junior Staff Accountant: None in the office PMH: CAD, HTN, DM, CVA, HLD, CHF, AFL s/p ablation SH: non smoker, no ETOH Cardiac procedures: Stress test 08-01-16: neg for ischemia, EF 65% [facility] 12-29-15 Mid LAD lesion 70%stenosed. The [...] pain.Similar pattern back in 2016 a/w her [facility]. Pt describes similar pattern ofCP over [...] Surgeon: Be Brown MD; Location: [facility] ENDOSCOPY; Service: Endoscopy Allergies: Allergies Allergen Reactions ? ? Compazine [Prochlorperazine Edisylate] ? ? Cornucopia ? ? Pentazocine Hcl ? ? Prochlorperazine [...] mL 30 gauge x 16 Misc Syringe 1Syringe by Misc.(Non-Drug; Combo Route) [...] mg Oral Capsule, Sust. Release 24 hr [id number] mg by mouth nightly. Not Taking at Unknown time Social History: Social History Substance Use Topics ? ? Smoking status: Never Smoker ? ? Smokeless tobacco: Never Used ? ? Alcohol use No Comment: wednesday mass Family History: Family History Problem Relation Age [...] joint pain NEURO: no obvious focal abnormalities Industrial Specialist: SR Vitals: Vitals: 10/13/16 1936 10/13/16 2336 [...] process EKG: SR w old inferior, anterior MO Assessment: 1. CP: -resolved Dull pressure, heavy sensation perist -trop < 0.01 x 3 -no ischemic EKG shifts Stress test 08-01-16--> neg for ischemia, EF 65% Remain NPO til seen by Dr Perea Given CV risk, pattern of angina and recent stress test-- may require [facility] reevaluate LAD . Pt agrees w POC if angio is warranted Cr 1.50 GFR 35 2. CAD [facility] 03-30-15 Left Anterior Descending Mid LAD [...] ( dr Tee) -maintaining SR -off AC [id number] Score Congestive heart failure 1 Hypertension 1 Age older than 75y (2pts) 0 Age 65 to 74y 1 Diabetes mellitus 1 Stroke/TIA/TE (2pts) 2 Vascular disease (prior MO, PAD, or aortic plaque) 1 Sex category [...] Meter POC 133(H) 70 - 100 mg/dL [facility] POINT OF CARE LABORATORY Sample Type Capillary [facility] POIN T OF CARE LABORATORY Patient Status Non-Critical Patient [facility]INT [facility]ARE LAB[facility] Blood specimen (specimen) 10/15/2016 5:12 PM EDT 10/15/2016 5:12 PM EDT us Deena Waldron MD POINT OF CARE TEST ORDERABLES Final Result Performing Organization Address [facility] Co de Phone Number [facility] [address] [place] [address] [place] [address] * (ABNORMAL) GLUCOSE METER POC (10/15/2016 1:47 PM EDT) Glucose Meter POC 112(H) 70 - 100 mg/dL [facility] POINT OF CARE LABORATORY Sample Type Capillary [facility] POIN T OF CARE LABORATORY Patient Status Non-Critical Patient [facility]INT [facility]ARE LAB[facility] Blood specimen (specimen) 10/15/2016 1:47 PM EDT 10/15/2016 1:47 PM EDT us Deena Waldron MD POINT OF CARE TEST ORDERABLES Final Result Performing Organization Address City/[facility]/ZIP Co de Phone Number [facility] POINT [facility] CARE LAB[facility]ORY [address] [place] [address] [place] [address] * CORONARY ANGIOGRAM (COR/LHC/LV GRAM, CARDIAC CATHETERIZATION), [...] CATH ORDERABLES Edit ed Result - Final [facility] * HISTOLOGICAL ILLUSTRATOR HEMODYNAMIC WAVEFORMS (10/15/2016 11:15 AM EDT) 10/15/2016 11:1 5 AM EDT us Bertram Harvey APRN CARDIAC CATH ORDERABLES Mildred l Result Performing Organization Address City/[facility]/ZIP Co de Phone Number [facility] [address] [place] [address] * SCANNED RHYTHM STRIPS (10/15/2016 9:35 AM EDT) Anatomical Region Laterality Modality Other 10/15/2016 9:35 AM EDT us Unknown Unknown IMG ECG ORDERABLES Final Result * (ABNORMAL) GLUCOSE METER POC (10/15/2016 8:36 AM EDT) Glucose Meter POC 163(H) 70 - 100 mg/dL [facility] POINT [facility] CARE LAB[facility] Sample Type Capillary [facility] POIN T OF CARE LABORAT[facility] Patient Status Non-Critical Patient [facility]ARE [facility] Blood specimen (specimen) 10/15/2016 8:36 AM EDT 10/15/2016 8:36 AM EDT Deena Waldron MD POINT OF CARE TEST ORDERABLES Final Result Performing Organization Address [facility] Co de Phone Number [facility]INT [facility] CARE LAB[facility] [address] [place] [address] * DIFFERENTIAL (10/15/2016 8:24 AM EDT) Neut Percent 70.5 % [facility] Lymph Percent 20.3 % [facility] Swift Percent 5.7 % [facility] Eos Percent 2.5 % [facility] Baso Percent 1.0 % [facility] Neut# 5.8 1.8 - 7.7 x10(3)/[facility] LABORATORY Lymph# 1.7 0.6 - 4.8 x10(3)/[facility] LABORATORY Swift# 0.5 0.0 - 1.3 x10(3)/[facility] LABORATORY Eos# 0.2 0.0 - 0.5 x10(3)/[facility] LABORATORY Baso# 0.1 0.0 - 0.2 x10(3)/[facility] LABORATORY Blood specimen (specimen) 10/15/2016 8:24 AM EDT 10/15/2016 8:32 AM EDT Deena Waldron MD HEMATOLOGY ORDERABLES Final R esult Performing Organization Address City/[facility]/ZIP Co de Phone Number [facility] [address] [place] [address] * CBC WITH AUTO DIFF (10/15/2016 8:24 AM EDT) WBC 8.2 4.0 - 11.0 x10(3)/[facility] LABORATORY RBC 4.32 3.80 - 5.10 x10(6)/[facility] LABORATORY Hgb 12.5 12.0 - 15.6 gm/dL [facility] Hct 38.0 35.7 - 45.9 % [facility] MCV 87.8 82.5 - 99.8 fL [facility] MCH 29.0 27.0 - 34.3 pg [facility] MCHC 33.0 32.1 - 35.3 gm/dL [facility] RDW 14.8 11.5 - 15.0 % [facility] Platelet 158 144 - 423 x10(3)/mcL [facility] MPV 9.0 6.8 - 10.8 fL [facility] Blood specimen (specimen) UPPER LIMB STRUCTURE / Unknown 10/15/2016 8:24 AM EDT 10/15/2016 8:32 AM EDT us Deena Waldron MD HEMATOLOGY [place] [address] * (ABNORMAL) BASIC METABOLIC PANEL (10/15/2016 6:05 AM EDT) Sodium 140 136 - 145 mmol/L [facility] Potassium 5.1(H) 3.5 - 5.0 mmol/L [facility] Chloride 100 98 - 107 mmol/L [facility] Total CO2 24 22 - 29 mmol/L [facility] Anion Gap 16 7 - 16 mmol/L [facility] Calcium 9.1 8.8 - 10.2 mg/dL [facility] Glucose Lvl 181(H) 82 - 100 mg/dL [facility] BUN 27(H) 8 - 23 mg/dL [facility] Creatinine 1.63(H) 0.51 - 1.30 mg/dL [facility] GFR Afr Am 38 [facility] OOD [facility] GFR Non Afr Am 32 [facility] Blood specimen (specimen) UPPER LIMB STRUCTURE / Unknown 10/15/2016 6:05 AM EDT 10/15/2016 6:40 AM EDT us Deena Waldron MD CHEMISTRY ORDERABLES Edited R esult - Final Performing Organization Address [facility] Co de Phone Number [address] [address] * SCANNED RHYTHM STRIPS (10/15/2016 5:52 AM [...] Meter POC 219(H) 70 - 100 mg/dL [facility] POINT [facility] CARE LAB[facility] Sample Type Capillary [facility] POIN T OF CARE LABORATORY Patient Status Non-Critical Patient [facility]ARE [facility] Blood specimen (specimen) 10/14/2016 8:35 PM EDT 10/14/2016 8:35 PM EDT us Deena Waldron MD POINT OF CARE TEST ORDERABLES Final Result Performing Organization Address [facility] de Phone Number [facility] [address] [place] [id number] * (ABNORMAL) GLUCOSE METER POC (10/14/2016 6:34 PM EDT) Glucose Meter POC 285(H) 70 - 100 mg/dL [facility] POINT [facility] CARE LAB[facility] Sample Type Capillary [facility] POIN T OF CARE LABORATORY Patient Status Non-Critical Patient [facility]ARE [facility] Blood specimen (specimen) 10/14/2016 6:34 PM EDT 10/14/2016 6:34 PM EDT us Deena Waldron MD POINT OF CARE TEST ORDERABLES Final Result Performing Organization Address [facility] Co de Phone Number [facility] [address] [place] [address] ADRIEL Bullard [address] * (ABNORMAL) GLUCOSE METER POC (10/14/2016 12:57 PM EDT) Glucose Meter POC 120(H) 70 - 100 mg/dL [facility] POINT OF [facility] Sample Type Capillary [facility] POIN T OF [facility] LAB[facility] Patient Status Non-Critical Patient [facility]INT [facility] CARE LAB[facility] Blood specimen (specimen) 10/14/2016 12:57 PM EDT 10/14/2016 12:57 PM EDT us Deena Waldron MD POINT OF CARE TEST ORDERABLES Final Result Performing Organization Address [facility] Phone Number [facility] PO[facility] [address] [place] [address] ADRIEL Bullard [address] * SCANNED RHYTHM STRIPS (10/14/2016 9:52 AM EDT) Anatomical Region Laterality Modality Other 10/14/2016 9:52 AM EDT us Unknown Unknown IMG ECG ORDERABLES Final Result * (ABNORMAL) GLUCOSE METER POC (10/14/2016 8:40 AM EDT) Glucose Meter POC 228(H) 70 - 100 mg/dL [facility] POINT [facility] CARE LAB[facility] Sample Type Capillary [facility] POIN T [facility] Patient Status Non-Critical Patient [facility] POINT [facility] CARE LAB[facility] Blood specimen (specimen) 10/14/2016 8:40 AM EDT 10/14/2016 8:40 AM EDT us Deena Waldron MD POINT OF CARE TEST ORDERABLES Final Result Performing Organization Address [facility] [facility] Co de Phone Number [facility] POINT OF CARE LABORATORY [address] [place] [address] [place] [address] * DIFFERENTIAL (10/14/2016 6:29 AM EDT) Neut Percent 73.4 % [facility] Lymph Percent 16.5 % [facility] Swift Percent 6.4 % [facility] Eos Percent 3.0 % [facility] Baso Percent 0.7 % [facility] Neut# 5.4 1.8 - 7.7 x10(3)/[facility] LABORATORY Lymph# 1.2 0.6 - 4.8 x10(3)/[facility] LABORATORY Swift# 0.5 0.0 - 1.3 x10(3)/[facility] LABORATORY Eos# 0.2 0.0 - 0.5 x10(3)/[facility] LABORATORY Baso# 0.1 0.0 - 0.2 x10(3)/[facility] LABORATORY Blood specimen (specimen) 10/14/2016 6:29 AM EDT 10/14/2016 6:35 AM EDT us Deena Waldron MD HEMATOLOGY ORDERABLES Final R esult Performing Organization Address City/State/[facility] [place] [place] [address] * CBC WITH AUTO DIFF (10/14/2016 6:29 AM EDT) WBC 7.4 4.0 - 11.0 x10(3)/[facility] LABORATORY RBC 4.40 3.80 - 5.10 x10(6)/[facility] LABORATORY Hgb 12.9 12.0 - 15.6 gm/dL [facility] Hct 38.6 35.7 - 45.9 % [facility] MCV 87.7 82.5 - 99.8 fL [facility] MCH 29.2 27.0 - 34.3 pg [facility] MCHC 33.4 32.1 - 35.3 gm/dL [facility] RDW 14.7 11.5 - 15.0 % [facility] Platelet 154 144 - 423 x10(3)/[facility] LABORATORY MPV 9.6 6.8 - 10.8 fL [facility] Blood specimen (specimen) UPPER LIMB STRUCTURE / Unknown 10/14/2016 6:29 AM EDT 10/14/2016 6:35 AM EDT us Deena Waldron MD HEMATOLOGY ORDERABLES Final [facility] Performing Organization Address [facility] [place] [address] * (ABNORMAL) BASIC METABOLIC PANEL (10/14/2016 6:29 AM EDT) Sodium 142 136 - 145 mmol/L [facility] Potassium 4.7 3.5 - 5.0 mmol/L [facility] Chloride 101 98 - 107 mmol/L [facility] Total CO2 26 22 - 29 mmol/L [facility] Anion Gap 15 7 - 16 mmol/L [facility] Calcium 9.3 8.8 - 10.2 mg/dL [facility] Glucose Lvl 250(H) 82 - 100 mg/dL [facility] BUN 22 8 - 23 mg/dL [facility] Creatinine 1.50(H) 0.51 - 1.30 mg/dL [facility] GFR Afr Am 42 [facility]OD LAB[facility]ATORY GFR Non Afr Am 35 [facility] Blood specimen (specimen) UPPER LIMB STRUCTURE / Unknown 10/14/2016 6:29 AM EDT 10/14/2016 6:34 AM EDT us Deena Waldron MD CHEMISTRY ORDERABLES Edited R esult - Final Performing Organization Address [facility] [place] [address] * SCANNED RHYTHM STRIPS (10/14/2016 5:04 AM EDT) Anatomical Region Laterality Modality Other 10/14/2016 5:04 AM EDT us Unknown Unknown IMG ECG ORDERABLES Final Result * EK EKG 12 LEAD (10/14/2016 12:05 AM EDT) Anatomical Region Laterality Modality Electrocardiogra phy 10/14/2016 6:36 AM EDT Impressions 10/14/2016 7:11 AM EDT ? Stationary ECG Study ?[place] ? Interpretive Statements ? SINUS RHYTHM INFERIOR MYOCARDIAL INFARCTION, OF INDETERMINATE AGE ANTEROSEPTAL MYOCARDIAL INFARCTION, OF INDETERMINATE AGE no diagnostic change from previous tracing Electronically Signed On 10-14-2016 7:11:[address] MD Narrative Procedure Note Davi Street MD - 10/14/2016 IMPRESSION Stationary ECG Study [place] Interpretive Statements SINUS RHYTHM INFERIOR MYOCARDIAL INFARCTION, OF INDETERMINATE AGE ANTEROSEPTAL MYOCARDIAL INFARCTION, OF INDETERMINATE AGE no diagnostic change from previous tracing Electronically Signed On 10-14-2016 7:11:[address] MD us Vero Dumas MD IMG ECG ORDERABLES Final Res ult * TROPONIN-T (10/13/2016 11:30 PM EDT) Troponin-T <0.01 <=0.00 ng/mL [facility] Comment: Values > or = 0.01 ng/mL have been shown to have prognostic value. Blood specimen (specimen) 10/13/2016 11:30 PM EDT 10/13/2016 11:30 PM EDT us Vero Dumas MD CHEMISTRY ORDERABLES Final R esult Performing Organization Address [facility] [place] [address] * (ABNORMAL) GLUCOSE METER POC (10/13/2016 7:39 PM EDT) Pathologist [facility] Glucose Meter POC 177(H) 70 - 100 mg/dL [facility] POINT OF CARE LABORATORY Sample Type Capillary [facility] Patient Status Non-Critical Patient [facility]ARE LABORATORY Blood specimen (specimen) 10/13/2016 7:39 PM EDT 10/13/2016 7:39 PM EDT us Deena Waldron MD POINT OF CARE TEST ORDERABLES Final Result Performing Organization Address [facility] Phone Number [facility] [address] [place] [address] * (ABNORMAL) THYROID STIMULATING HORMONE (10/13/2016 7:00 PM EDT) [facility] TSH 0.043(L) 0.270 - 4.200 mcIU/mL [facility] Blood specimen (specimen) UPPER LIMB STRUCTURE / Unknown 10/13/2016 7:00 PM EDT 10/13/2016 7:15 PM EDT us Deena Waldron MD CHEMISTRY ORDERABLES Final Re sult Performing Organization Address [facility] [place] [address] * TROPONIN-T (10/13/2016 7:00 PM EDT) [facility] Troponin-T <0.01 <=0.00 ng/mL [facility] Comment: Values > or = 0.01 ng/mL have been shown to have prognostic value. Blood specimen (specimen) 10/13/2016 7:00 PM EDT 10/13/2016 7:02 PM EDT Vero Dumas MD CHEMISTRY ORDERABLES Final R esult Performing Organization Address [facility] Co de Phone Number [facility] [address] [place] [address] * DIFFERENTIAL (10/13/2016 4:40 PM EDT) Pathologist [facility] Neut Percent 70.7 % [facility] Lymph Percent 19.2 % [facility] Swift Percent 6.2 % [facility] Eos Percent 2.7 % [facility] Baso Percent 1.2 % [facility] Neut# 5.9 1.8 - 7.7 x10(3)/mcL [facility] Lymph# 1.6 0.6 - 4.8 x10(3)/[facility] LABORATORY Swift# 0.5 0.0 - 1.3 x10(3)/[facility] LABORATORY Eos# 0.2 0.0 - 0.5 x10(3)/[facility] LABORATORY Baso# 0.1 0.0 - 0.2 x10(3)/[facility] LABORATORY Blood specimen (specimen) 10/13/2016 4:40 PM EDT 10/13/2016 4:43 PM EDT Vero Dumas MD HEMATOLOGY ORDERABLES Final Result Performing Organization Address [facility] de Phone Number [facility] [address] [place] [address] * TROPONIN-T (10/13/2016 4:40 PM EDT) [facility] Troponin-T <0.01 <=0.00 ng/mL [facility] Comment: Values > or = 0.01 ng/mL have been shown to have prognostic value. Blood specimen (specimen) 10/13/2016 4:40 PM EDT 10/13/2016 4:43 PM EDT Vero Dumas MD CHEMISTRY ORDERABLES Final R esult Performing Organization Address City/[facility] [place] [address] * NT PROBNP (10/13/2016 4:40 PM EDT) [facility] NT Pro-BNP 153 <=319 pg/mL [facility] Comment: An NT pro-BNP level less than 300 pg/mL in any patient, regardless of age, Effectively rules out acute CHF with a 99% negative predictive value. Blood specimen (specimen) UPPER LIMB STRUCTURE / Unknown 10/13/2016 4:40 PM EDT 10/13/2016 4:43 PM EDT Vero Dumas MD CHEMISTRY ORDERABLES Final [facility] Performing Organization Address [facility] de Phone Number [facility] [address] [place] [address] * (ABNORMAL) COMPREHENSIVE METABOLIC PANEL (10/13/2016 4:40 PM EDT) [facility] Sodium 142 136 - 145 mmol/L [facility] Potassium 4.2 3.5 - 5.0 mmol/L [facility] Chloride 102 98 - 107 mmol/L [facility] Total CO2 27 22 - 29 mmol/L [facility] Anion Gap 13 7 - 16 mmol/L [facility] Calcium 9.4 8.8 - 10.2 mg/dL [facility] Glucose Lvl 187(H) 82 - 100 mg/dL [facility] BUN 21 8 - 23 mg/dL [facility] Creatinine 1.26 0.51 - 1.30 mg/dL [facility] Albumin 4.0 3.2 - 4.6 gm/dL [facility] Total Protein 7.1 6.4 - 8.3 gm/dL [facility] Bili Total 0.4 0.1 - 1.3 mg/dL [facility] AST 11 <=40 IU/L [facility]AT[facility] ALT 10 <=41 IU/L [facility] Alk Phos 152(H) 35 - 104 IU/L [facility] GFR Afr Am 52 [facility] GFR Non Afr Am 43 [facility] Blood specimen (specimen) UPPER LIMB STRUCTURE / Unknown 10/13/2016 4:40 PM EDT 10/13/2016 4:43 PM EDT Vero Dumas MD CHEMISTRY ORDERABLES Edited Result - Final Performing Organization Address City/[facility] Co de Phone Number [facility] [address] [place] [address] * CBC WITH AUTO DIFF (10/13/2016 4:40 PM EDT) WBC 8.4 4.0 - 11.0 x10(3)/mcL [facility] RBC 4.26 3.80 - 5.10 x10(6)/mcL [facility] Hgb 12.4 12.0 - 15.6 gm/dL [facility] Hct 36.9 35.7 - 45.9 % [facility] MCV 86.6 82.5 - 99.8 fL [facility] MCH 29.2 27.0 - 34.3 pg [facility] MCHC 33.7 32.1 - 35.3 gm/dL [facility] RDW 14.6 11.5 - 15.0 % [facility] Platelet 190 144 - 423 x10(3)/mcL [facility] MPV 9.2 6.8 - 10.8 fL [facility] Blood specimen (specimen) UPPER LIMB STRUCTURE / Unknown 10/13/2016 4:40 PM EDT 10/13/2016 4:43 PM EDT Vero Dumas MD HEMATOLOGY ORDERABLES Final Result [facility] [address] [place] [address] * XR CHEST AP PORTABLE (10/13/2016 4:25 [...] 3:43 PM EDT ? Stationary ECG Study ?[facility] ? Interpretive Statements ? 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 MYOCARDIAL INFARCTION, PROBABLY OLD no diagnostic change other than rate Electronically Signed On 10-13-2016 15:43:[address] MD Narrative Procedure Note Davi Street MD - 10/13/2016 IMPRESSION Stationary ECG Study [place] Interpretive Statements 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 MYOCARDIAL INFARCTION, PROBABLY OLD no diagnostic change other than rate Electronically Signed On 10-13-2016 15:43:[address] MD Vero Dumas MD IMG ECG ORDERABLES Final [...] Unspecified essential hypertension Coronary artery disease involving [place] coronary artery of [place] heart with unstable angina pectoris (HCC) Chronic [...] Wed10/14/16 at 1545, Until Wed10/15/16 at 1438 Rate/Dose Verify 10/15/2016 10:28 AM [...] 6:39 PM EDT 15 Units Abdominal Tissue isosorbide mononitrate (IMDUR) CR tablet 60 mg 60 mg, Oral, DAILY, First dose on Wed10/13/16 at 1900, Until Discontinued Given 10/15/2016 9:05 AM EDT 60 mg lisinopril (PRINIVIL;ZESTril) tablet 5 mg 5 [...] site: skin folds morphine injection 4 mg 4 mg, Intravenous, [...] Applied 10/13/2016 4:07 PM EDT 1 Inch ondansetron (ZOFRAN) injection [...] 904 (Given - Provider: Jesica Osorio RN) aspirin EC tablet 81 mg 81 mg, Oral, DAILY, First dose on Wed10/14/16 at 0900, Until Discontinued 0840 (Given - Provider: Elvira Moscoos RN) 904 (Given - Provider: Jesica Osorio RN) aspirin tablet 325 mg (COMPLETED) 325 mg, Oral, ONCE, 1 dose, On Wed10/13/16 at 1615 1607 (Given - Provider: Joselyn Villanueva RN) atorvastatin (LIPITOR) tablet 20 mg 20 mg, Oral, NIGHTLY, First dose on Wed10/13/16 at 2100, Until Discontinued 2054 (Given - Provider: Marcio De León RN) 2021 (Given - Provider: Eliza Jung RN) buPROPion (WELLBUTRIN SR) SR tablet 150 mg [...] Elvira Moscoso RN)2020 (Given - Provider: Eliza Jung RN) 0905 (Given - Provider: Jesica Osorio, ROLF)1518 (Given - Provider: Jesica Osorio, ROLF) glipiZIDE (GLUCOTROL) tablet 10 mg 10 mg, Oral, 2 TIMES DAILY WITH MEALS, First dose on Wed10/13/16 at 1900, Until Discontinued 2053 (Given - Provider: Marcio De León RN) 0800 (Not Given - Provider: Elvira Moscoso RN - Reason: NPO)1838 (Given - Provider: Elvira Moscoso RN) 0905 (Given - Provider: Jesica Osorio, ROLF)1800 (Due) heparin, porcine (PF) injection 5,000 Units 5,000 Units, Subcutaneous, EVERY 8 HOURS SCHEDULED (3 times per day), First dose on Wed10/14/16 at 1515, Until Discontinued, Hold Heparin for platelet count less than 100,000 1643 (Given - Provider: Elvira Moscoso RN)2158 (Given - Provider: Eliza Jung RN) 0600 (Canceled Entry - Provider: Eliza Jung [...] 3 hours. Waste Sort Code = BKC 2100 (Not Given - Provider: Marcio De [...] 0905 (Given - Provider: Jesica Osorio RN) lisinopril (PRINIVIL;ZESTril) tablet 5 mg 5 mg, Oral, DAILY, First dose on Wed10/13/16 at 1900, Until Discontinued, +++ACEI Medication+++ 1900 (Hold - Provider: Marcio De León [...] at 1745 1749 (Given - Provider: Joselyn Villanueva RN) NIFEdipine (PROCARDIA XL) CR tablet 90 mg [...] RN) 0905 (Given - Provider: Jesica Osorio, RN) ranolazine (RANEXA) SR tablet 1,000 mg 1,000 mg, Oral, EVERY 12 HOURS SCHEDULED (2 times per day), First dose (after last modification) on Wed10/14/16 at 2100, Until Discontinued 2021 (Given - Provider: Eliza Jung RN) 0905 (Given - Provider: Jesica Osorio RN) ranolazine (RANEXA) SR tablet 500 mg (CANCELED) [...] 1438 2026 (New Bag - Provider: Eliza Jung RN) 1028 (Rate/Dose Verify - Provider: Elvis Case RN)1230 (Stopped - Provider: Elvis Case RN) 0.9 % NaCl infusion Intravenous, at 150 mL/hr, CONTINUOUS, Starting on Wed10/15/16 at 1230, Until Farncine 10/15/16 at 2329, If infusion complete, infuse 0.9% [...] mg 0.5 mg, Intravenous, PRN, Starting on Francine 10/15/16 at 1202, Until Francine 10/15/16 at 2329, Symptomatic bradycardia, emergency treatment, Administer IV push for symptomatic bradycardia, may repeat every 3-5 minutes to total of 3 mg. dextrose 50 % solution 25 g 25 g, Intravenous, PRN, Starting on Francine 10/15/16 at 1202, Until Francine 10/15/16 at 2329, Low blood sugar, for emergency treatment of profound hypoglycemia, May repeat in 15 minutes. VESICANT dextrose 50 % solution 25 mL 25 mL, Intravenous, PRN, Starting on Wed10/13/16 at 1856, Until Francine 10/15/16 at 2329, Low blood sugar, If FSBS [...] PRN, Starting on Wed10/15/16 at 1130, Until Francine 10/15/16 at 1200, Intra-procedure(Cath) 1130 (Given - Provid er: Katheryn Moncada RN) glucagon (human recombinant) (GLUCAGEN) injection 1 mg 1 mg, Intramuscular, PRN, Starting on Wed10/13/16 at 1856, Until Francine 10/15/16 at 2329, Low blood sugar, If FSBS [...] % injection (LOW) (CANCELED) PRN, Starting on Francine 10/15/16 at 1158, Until Francine 10/15/16 at 1200, Intra-procedure(Cath) 1158 (Given - Provid [...] Sublingual, EVERY 5 MIN PRN, Starting on Wed10/13/16 at 1852, Until Francine 10/15/16 at 2329, [...] Until Wed10/15/16 at 2329, Nausea ondansetron (ZOFRAN) tablet 4 mg(Linked Group 1) 4 mg, Oral, EVERY 6 HOURS PRN, Starting on Wed10/13/16 at 1933, Until Wed10/15/16 at 2329, Nausea oxyCODONE-acetaminophen (PERCOCET) 5-325 mg per tablet 1 Tab 1 Tablet, Oral, EVERY 4 HOURS PRN, Starting on Wed10/14/16 at 2159, Until Wed10/15/16 at 232, Pain, Maximum adult dose of acetaminophen is [...] 1933, Until Francine 10/15/16 at 2329, Nausea documented in this encounter Orders Medications Ordered That Gaurav ht Not Have Been Administered Count Last Ordered Date First Ordered Date atropine injection 0.5 mg 1 10/15/2016 dextrose 50 % solution 25 g 1 10/15/2016 EPINEPHrine injection 1 mg 1 10/15/2016 fentaNYL (SUBLIMAZE) injection 1 10/15/2016 fentaNYL (SUBLIMAZE) injection 50 mcg 1 12/2016 heparin 2 units/ml in 0.9% NaCl 500 mL 1 iopamidol (ISOVUE-370) 76 % injection (LOW) 1 10/15/2016 lidocaine 20 mg/mL (2 %) injection 1 2016 LORazepam (ATIVAN) tablet 1 mg 1 10/15/2016 metoclopramide HCl (REGLAN) injection 10 mg 1 10/15/2016 miconazole (MICATIN) 2 % powder 1 7 midazolam (VERSED) injection 1 10/15/2016 nitroglycerin injection 1 10/15/2016 0.9 % NaCl infusion 1 10/14/2016 dextrose 50 % solution 25 mL 1 10/13/2016 glucagon (human recombinant) (GLUCAGEN) injection 1 mg 1 10/13/2016 nitroGLYCERIN (NITROGLYN) 2 % ointment 1 Inch 1 10/13/2016 nitroGLYCERIN (NITROSTAT) SL tablet 0.4 mg 1 10/13/2016 ondansetron (ZOFRAN) injection 4 mg 1 10/13 ondansetron (ZOFRAN) tablet 4 mg 1 10/14/19 17 sodium chloride 0.9% IV line flush 50 mL 1 10/13/2016 sodium chloride 0.9% syringe 5-10 mL 10/2016 Procedures Count Last Ordered Date First Orde red Date CASE REQUEST HISTOLOGICAL ILLUSTRATOR 1 10/14/2016 Nursing Count Last Ordered Date First Orde red Date ADMISSION 1 10/13/2016 Consult Count Last Ordered Date First Orde red Date IP CONSULT TO CARDIOLOGY 1 10/13/2016 documented in this encounter Care Teams Excel Developer Relationship Specialty Start Date End Date Sharee Segovia APRN [address] [place] [address] PCP - General Nurse Practitioner-Family 09/21/16 documented as of this encounter
--- OUTSIDE RECORDS SUMMARY | 2024-02-16 14:59 | XMS_ITS | Encounter Summary ---
Author Organization [place] [address] Care Team Providers Care Manufacturing Tech Name Role Phone Sharee Segovia APRN Primary Care Provider [phone] Reason for Visit * Reason Comments Medication Refill Encounter Details Date Type Department Care Team (Late st Contact Info) Description 09/22/2016 Refill [facility] [address] [place] [address] Sharee Segovia APRN [address] [place] [address] Medication Refill Social History Tobacco Use Types [...] Date metoprolol (LOPRESSOR) 25 mg Oral Tablet TAKE 1 TABLET BY MOUTH TWICE A DAY 60 Tab 09/22/2016 10/15/2016 documented in this encounter Plan of Treatment [...] Start Date End Da te metoprolol (LOPRESSOR) 25 mg Oral Tablet Take 25 mg by mouth 2 times daily. Reorder 09/22/2016 documented as of this encounter Care Teams Manufacturing Tech Relationship Specialty Start Date End Date Sharee Segovia APRN [address] [place], [place] [phone] PCP - General Nurse Practitioner-Family 09/21/16 documented as of this encounter
--- OUTSIDE RECORDS SUMMARY | 2024-02-16 14:59 | XMS_ITS | Encounter Summary ---
Author Organization [place] [address] Care Team Providers Care Sound Person Name Role Phone Alessandra Trevino August Primary Care Provider + Reason for Visit * Reason Comments Medication Refill Encounter Details Date Type Department Care Team (Late st Contact Info) Description 09/10/2016 Refill [facility] [address] [place] [address] Sharee Segovia APRN [address] [facility] [place] [address] Medication Refill Social History Tobacco Use Types Packs/Day Years Used Date Smoking Tobacco: Never Smokeless Tobacco: Never Alcohol Use Standard Drinks/Week Comments No 0 (1 standard drink = 0.6 oz pur e alcohol) Comments No Sex and Gender Information Value Date Recorded Sex Assigned at Not on file Legal Sex Female 11:12 AM EDT Gender Identity Not on file Sexual Orientation Not on file documented as of this [...] on filedocumented in this encounter Care Teams Sound Person Relationship Specialty Start Date End Date Pablo Trevinomy August, [address] [facility] [address] [place] [phone] PCP - General Nurse Practitioner-Family 08/29/14 09/20/16 documented as of this encounter
--- OUTSIDE RECORDS SUMMARY | 2024-02-16 14:59 | XMS_ITS | Encounter Summary ---
Author Organization [place] [address] Care Team Providers Care Salary And Wage Administrator Name Role Phone Sharee Segovia APRN Primary Care Provider [phone] Reason for Visit * Reason Comments Medication Refill Encounter Details Date Type Department Care Team (Late st Contact Info) Description 10/02/2016 Refill [facility] [address] [place] [address] Joanna Hitchcock MD Medication Refill Social [...] 1 Tab by mouth daily. 14 Tab 10/02/2016 10/22/2016 atorvastatin (LIPITOR) 20 mg Oral Tablet Take 1 Tab by mouth nightly. 14 Tab 10/02/2016 10/22/2016 documented in this encounter Plan of Treatment [...] Take 1 Tab by mouth nightly. Reorder 09/22/2016 10/02/2016 isosorbide mononitrate (IMDUR) 60 mg Oral Tablet Sustained Release 24 hr Take 1 Tab by mouth daily. Reorder 09/22/2016 10/02/2016 documented as of this encounter Care Teams Salary And Wage Administrator Relationship Specialty Start Date End Date Sharee Segovia APRN [address] [place] [phone] PCP - General Nurse Practitioner-Family 09/21/16 documented as of this encounter
--- OUTSIDE RECORDS SUMMARY | 2024-02-16 14:59 | XMS_ITS | Encounter Summary ---
Author Organization [place] [address] Care Team Providers Care Director Of Assessing Name Role Phone Sharee Segovia APRN Primary Care Provider [phone] Encounter Details Date Type Department Care Team (Late st Contact Info) Description 09/23/2016 Orders Only [facility] [address] [place] [address] Josie Saunders, [facility] [address] [place] [address] Hemiparesis affecting left side as late effect of stroke (HCC) (Primary Dx) Social History Tobacco Use [...] Date amitriptyline (ELAVIL) 75 mg Oral Tablet Take 1 Tab by mouth nightly for 30 days. 30 Tab 09/23/2016 7 documented in this encounter Plan of [...] as of this encounter Visit Diagnoses Diagnosis Hemiparesis affecting left side as late effect of stroke (HCC)- Primary Hemiplegia affecting unspecified side, late effect of cerebrovascular disease documented in this encounter Discontinued Medications Medication Sig Discontinue Reason Start Date End Da te amitriptyline (ELAVIL) 75 mg Oral Tablet Take 75 mg by mouth nightly. Reorder 09/23/2016 documented as of this encounter Care Teams Director Of Assessing Relationship Specialty Start Date End Date Sharee Segovia APRN [address] [place] [phone] PCP - General Nurse Practitioner-Family 09/21/16 documented as of this encounter
--- OUTSIDE RECORDS SUMMARY | 2024-02-16 14:59 | XMS_ITS | Encounter Summary ---
Author Organization [place] [address] Care Team Providers Care Telephone Mechanic Name Role Phone Alberto Colindres POTTERY MACHINE OPERATOR Primary Care Provider [phone] Reason for Visit * Reason Comments Annual Exam Establish Care Encounter Details Date Type Department Care Team (Late st Contact Info) Description 09/21/2016 1:00 PM EDT Office Visit [facility] [address] 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); Iron deficiency anemia due to chronic blood loss; Essential hypertension; Angina pectoris (HCC); Right groin pain; Need for hepatitis C screening test Social History Tobacco Use Types Packs/Day Years [...] Sign Reading Time Taken Comments Blood Pressure 118/70 09/21/2016 1:24 PM EDT Pulse 78 09/21/2016 1:24 PM EDT Temperature 36.7 ??C (98 ??F) 09/21/2016 1:24 PM EDT Respiratory Rate 16 09/21/2016 1:24 PM EDT Oxygen Saturation 97% 09/21/2016 1:24 PM EDT Inhaled Oxygen Concentration - - Weight 116.1 kg (256 lb) 09/21/2016 1:24 PM EDT Height 172.7 cm (5' 8 ) 09/21/2016 1:24 PM EDT Body Mass Index 38.92 09/21/2016 1:24 PM EDT documented in this encounter Ordered Prescriptions Prescription Sig Dispense Quantity Refills Last Filled Start Date End Date ibuprofen (ADVIL;MOTRIN) 600 mg Oral TabletIndications :Right groin pain Take 1 Tab by mouth every 6 hours as needed for Pain. 160 Tab 2 09/21/2016 7 insulin glargine (LANTUS) 100 unit/mL SubQ Solution Inject 18 units at nighttime in subcutaneous area.May substitute pens if covered by insurance 10 mL 3 09/21/2016 7 nitroGLYCERIN (NITROSTAT) 0.4 mg SL Tablet, SublingualIndicat ions:Angina pectoris (HCC) Place 1 Tab under the tongue every 5 minutes as needed for Chest pain. 20 Tab 09/21/2016 7 documented in this encounter Progress Notes * Alberto Colindres ARNP - 09/21/2016 1:00 PM EDT Subjective Ms. Palm is a 66 y.o. female here for an annual wellness physical exam. Here to get established with care. States has been getting home care from [facility]. She also sees Ela Snow APRN for behavioral health issues. Complains of pain in right groin that started 2 weeks ago. Hurts on the inside of the right groin area. Has not taken any meds for the pain. Lives at [facility] for the past three years. The rest of her family lives in [place]. Is currently using walker to assist with balance with groin pain. Cannot recall an injury to leg. Has not applied ice or heat to groin. History of diabetes for a year. Was put on insulin when she was recently admitted. States blood sugars are running 200-250. Refuses all preventative screenings. States she is not interested. States she would not treat if she found out she had something. Patient Active Problem List Diagnosis ??? History of CVA (cerebrovascular accident) ??? Frequent falls ??? Essential hypertension ??? Peripheral motor neuropathy ??? Precordial pain ??? Gastrointestinal hemorrhage associated with gastroduodenitis ??? Acute blood loss anemia ??? Hemiparesis affecting left side as late effect of stroke (HCC) ??? ELIU (iron deficiency anemia) ??? JACK (acute kidney injury) (HCC) ??? 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 Acute on chronic diastolic (congestive) heart failure (HCC) ??? Angina pectoris (HCC) ??? Ulcer of esophagus without bleeding ??? S/P ablation of atrial flutter ??? Atrial flutter (HCC) ??? 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 [...] Allergen Reactions ??? Compazine [Prochlorperazine Edisylate] ??? Annex ??? Pentazocine Hcl ??? Prochlorperazine Maleate ??? Talwin [Pentazocine Lactate] Current Outpatient Prescriptions on File Prior to Visit Medication Sig Dispense Refill ??? acetaminophen 325 mg Oral Tab Take 650 mg by mouth every 4 hours as needed for Pain. ??? amitriptyline (ELAVIL) 75 mg Oral Tablet Take 75 mg by mouth nightly. ??? ARIPiprazole (ABILIFY) 10 mg Oral Tablet Take 30 mg by mouth daily. ??? aspirin 81 mg Oral Tablet, Delayed Release (E.C.) Take 81 mg by mouth daily. ??? atorvastatin (LIPITOR) 20 mg Oral Tablet Take 1 Tab by mouth nightly. 30 Tab 1 ??? ferrous sulfate 325 mg (65 mg iron) Oral Tablet Take 1 Tab by mouth 2 times daily (with meals).60 Tab 5 ??? fUROsemide (LASIX) 20 mg Oral Tablet Take 1 Tab by mouth daily. 30 Tab 1 ??? gabapentin (NEURONTIN) 100 mg Oral Capsule Take 100 mg by mouth 3 times daily. Take 2 capsules by mouth 3 times daily ??? glipiZIDE (GLUCOTROL) 10 mg Oral Tablet Take 10 mg by mouth 2 times daily (with meals). ??? hydrOXYzine (ATARAX) 25 mg Oral Tablet Take 25 mg by mouth 2 times daily. Indications: ANXIETY ??? insulin syringe,safetyneedle 1 mL 30 gauge x 5/16 Misc Syringe 1 Syringe by Misc.(Non-Drug; Combo Route) route nightly. 30 Syringe 1 ??? isosorbide mononitrate (IMDUR) 60 mg Oral Tablet Sustained Release 24 hr Take 1 Tab by mouth daily. 30 Tab 1 ??? lisinopril (PRINIVIL;ZESTRIL) 5 mg Oral Tablet Take by mouth daily. ??? NIFEdipine (PROCARDIA XL) 90 mg Oral Tablet Extended Rel 24 hr Take 1 Tab by mouth daily. 30 Tab 1 ??? pantoprazole (PROTONIX) 40 mg Oral Tablet, Delayed Release (E.C.) Take 1 Tab by mouth daily. 30Tab 1 ??? ranolazine (RANEXA) 500 mg Oral Tablet Sustained Release 12 hr Take 1 Tab by mouth every 12 hours. 60 Tab 1 ??? risperiDONE (RISPERDAL) 1 mg Oral Tablet Take 2 mg by mouth nightly. ??? roPINIRole (REQUIP) 0.5 mg Oral Tablet Take 1.5 mg by mouth nightly. ??? sertraline (ZOLOFT) 100 mg Oral Tablet Take 150 mg by mouth 2 times daily. Reported on 08/12/2016 ??? sitaGLIPtin (JANUVIA) 100 mg Oral Tablet Take 100 mg by mouth daily. ??? venlafaxine (EFFEXOR-XR) 150 mg Oral Capsule, Sust. Release 24 hr Take 300 mg by mouth nightly. No current facility-administered medications on file prior [...] Conjugate Vaccine 13 Valent 12/26/2015 Health Maintenance Topic Date Due ??? Breast Cancer Screening 1950 ??? Colon Cancer Screening: Occult Blood 1950 ??? Annual Wellness Exam 07/13/1953 ??? Microalbuminuria 07/13/1961 ??? Hepatitis C Screening 07/13/1969 ??? Colon Cancer Screening: Colonoscopy 07/13/2001 ??? Zoster (1) 2011 ??? Hemoglobin A1c 03/11/2016 ??? Bone Density Screening 07/13/2016 ??? Fall Risk Assessment 07/13/2016 ??? Lipids 09/08/2016 ??? Influenza Vaccine (1) 11/06/2016 ??? Pneumococcal Vaccine (Low/Medium risk) 65+ (2 of 2 - PPSV23) 12/25/2016 Health Maintenance Due Topic Date Due ??? Breast Cancer Screening 1950 ??? Colon Cancer Screening: Occult Blood 1950 ??? Annual Wellness Exam 07/13/1953 ??? Microalbuminuria 07/13/1961 ??? Hepatitis C Screening 07/13/1969 ??? Colon Cancer Screening: Colonoscopy 07/13/2001 ??? Zoster (1) 2011 ??? Hemoglobin A1c 03/11/2016 ??? Bone Density Screening 07/13/2016 ??? Fall Risk Assessment 07/13/2016 ??? Lipids 09/08/2016 Patient Care Team: Alberto Colindres ARNP as PCP - General (Nurse Practitioner-Family) Review of Systems Constitutional: Negative. HENT: Negative. Eyes: Negative. Respiratory: Negative. Cardiovascular: Positive for chest pain (occ chest pain at rest and with exercise). Gastrointestinal: Negative. Endocrine: Negative. Genitourinary: Negative. Musculoskeletal: Negative. Neurological: Negative. Hematological: Negative. Objective BP 118/70 Pulse 78 Temp 98 ??F (36.7 ??C) (Oral) Resp 16 Ht 5' 8 (1.727 m) Wt 256 lb (116.1 kg) SpO2 97% BMI 38.92 kg/m?? Physical Exam Constitutional: Well developed, well nourished, no distress. Head: Normocephalic and atraumatic. No sinus pressure. Ears: Canals normal. TM's pearly mederos with bright light reflex. Mouth: No oral lesions, no pharyngeal erythema. No tonsillar enlargement or exudate. Eyes: Conjunctiva normal. EOM intact, PERRLA. Neck: Supple, normal ROM, no thyroid enlargement, no adenopathy. Cardiovascular: Normal rate and rhythm. Normal S1 and S2. No murmurs, gallops or rub. Mild edema feet and ankles. Pulmonary: Clear anterior and posterior. No wheezes, rales, or rhonchi. Abdomen: Soft, normal bowel sounds, non tender, no mass. Neurological: Alert and oriented. CN grossly intact. Skin: Warm and dry. Color natural. No rashes or lesions. Normal turgor and brisk cap refill. Psychological: Normal mood and affect with normal judgement. Lab Results Component Value Date WBC 7.0 08/30/2016 HGB 13.1 08/30/2016 HCT 39.5 08/30/2016 PLT 152 08/30/2016 CHOLESTEROL 177 09/09/2015 TRIG 375 (H) 09/09/2015 HDL 35 (L) 09/09/2015 LDLCALC 67 09/09/2015 ALT 10 06/22/2016 AST 12 06/22/2016 NA 142 08/30/2016 K 4.1 08/30/2016 CL 103 08/30/2016 CREATININE 1.19 08/30/2016 BUN 19 08/30/2016 CO2 27 08/30/2016 TSH 3.090 12/27/2015 INR 1.03 12/28/2015 GLU 223 (H) 08/30/2016 HGBA1C 6.1 09/09/2015 Diagnoses and all orders for this visit: 1. Annual physical exam Comments: will return for fasting labs. 2. 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 is not using NTG. Overview: Coronary Findings 12/2015 Dominance: Right Left Main The vessel is moderate in size. Left Anterior Descending Proximal LAD 60-70% stenosis. Left Circumflex There is mild diffuse disease throughout the vessel. Right Coronary Artery High anterior takeoff. Ostial RCA 20%, no dampening noted. 3. Iron deficiency anemia due to chronic blood loss - CBC WITH AUTO DIFF; Future 4. Essential hypertension Comments: stable Orders: - THYROID STIMULATING HORMONE; Future - COMPREHENSIVE METABOLIC PANEL; Future - LIPID SCREEN; Future - T4, FREE (THYROXINE); Future 5. Angina pectoris (HCC) (Chronic) Comments: stable Orders: - nitroGLYCERIN (NITROSTAT) 0.4 mg SL Tablet, Sublingual; Place 1 Tab under the tongue every 5 minutes as needed for Chest pain. Dispense: 20 Tab; Refill: 0 6. Right groin pain - ibuprofen (ADVIL;MOTRIN) 600 mg Oral Tablet; Take 1 Tab by mouth every 6 hours as needed for Pain. Dispense: 160 Tab; Refill: 2 7. Need for hepatitis C screening test - HEPATITIS C ANTIBODY - SCREENING; Future Other orders - insulin glargine (LANTUS) 100 unit/mL SubQ Solution; Inject 18 units at nighttime in subcutaneousarea.May substitute pens if covered by insurance Dispense: 10 mL; Refill: 3 [facility] Documentation Medication Compliance - non-compliant some of the time Understanding of current medications - good Self-Management Tools - none, lives at [facility] Self-Management Ability - fair Willingness to adopt healthy behaviors - fair Patient Barriers: no significant Existing barriers discussed and addressed in orders and /or referrals. I have discussed appropriate preventative health care measures with this patient. The risks of not obtaining the appropriate preventative screening -- including missed diagnoses of illness or cancer have been fully explained. The risk of delayed diagnosis or has been discussed. Despite this discussion, the patient does not wish to proceed with the following preventative health measures: Educated patient regarding the diagnosis, medication/treatment, goals, self- management tools and instructions based on their care plan. They verbalized understanding of the education given on the After Visit Summary [AVS] for today's visit. A copy of the AVS was provided either in writing and/or via [employer]. A new medicine was not prescribed on this visit.no refills needed at this time. Pharmacy called to verify meds. Note from [facility] is not correct. SUBJECTIVE: Faby Palm is a 66 y.o. female presenting for an annual medicare wellness visit. Current Outpatient Prescriptions Medication Sig Dispense Refill ??? acetaminophen 325 mg Oral Tab Take 650 mg by mouth every 4 hours as needed for Pain. ??? amitriptyline (ELAVIL) 75 mg Oral Tablet Take 75 mg by mouth nightly. ??? ARIPiprazole (ABILIFY) 10 mg Oral Tablet Take 30 mg by mouth daily. ??? aspirin 81 mg Oral Tablet, Delayed Release (E.C.) Take 81 mg by mouth daily. ??? atorvastatin (LIPITOR) 20 mg Oral Tablet Take 1 Tab by mouth nightly. 30 Tab 1 ??? ferrous sulfate 325 mg (65 mg iron) Oral Tablet Take 1 Tab by mouth 2 times daily (with meals).60 Tab 5 ??? fUROsemide (LASIX) 20 mg Oral Tablet Take 1 Tab by mouth daily. 30 Tab 1 ??? gabapentin (NEURONTIN) 100 mg Oral Capsule [...] x 07/21 Misc Syringe 1 Syringe by [facility].(Non-Drug; Combo Route) route nightly. 30 Syringe 1 ??? isosorbide mononitrate (IMDUR) 60 mg Oral Tablet Sustained Release 24 hr Take 1 Tab by mouth daily. 30 Tab 1 ??? lisinopril (PRINIVIL;ZESTRIL) 5 mg Oral Tablet Take by mouth daily. ??? metoprolol (LOPRESSOR) 25 mg Oral Tablet Take 25 mg by mouth 2 times daily. ??? NIFEdipine (PROCARDIA XL) 90 mg Oral [...] Tab by mouth daily. 30Tab 1 ??? ranolazine (RANEXA) 500 mg Oral Tablet Sustained Release 12 hr Take 1 Tab by mouth every 12 hours. 60 Tab 1 ??? risperiDONE (RISPERDAL) 1 mg Oral Tablet Take 2 mg by mouth nightly. ??? roPINIRole (REQUIP) 0.5 mg Oral Tablet Take 1.5 mg by mouth nightly. ??? sertraline (ZOLOFT) 100 mg Oral Tablet Take 150 mg by mouth 2 times daily. Reported on 08/12/2016 ??? sitaGLIPtin (JANUVIA) 100 mg Oral Tablet Take 100 mg by mouth daily. ??? venlafaxine (EFFEXOR-XR) 150 mg Oral Capsule, Sust. Release 24 hr Take 300 mg by mouth nightly. No current facility-administered medications for this visit. Patient Active Problem List Diagnosis ??? History of CVA (cerebrovascular accident) ??? Frequent falls ??? Essential hypertension ??? Peripheral motor neuropathy ??? Precordial pain ??? Gastrointestinal hemorrhage associated with gastroduodenitis ??? Acute blood loss anemia ??? Hemiparesis affecting left side as late effect of stroke (HCC) ??? ELIU (iron deficiency anemia) ??? JACK (acute kidney injury) (HCC) ??? 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 Acute on chronic diastolic (congestive) heart failure (HCC) ??? Angina pectoris (HCC) ??? Ulcer of esophagus without bleeding ??? S/P ablation of atrial flutter ??? Atrial flutter (HCC) ??? 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 [...] [facility]; Service: Endoscopy Family History Problem Relation Age of Onset ??? Cancer Mother larnyx cancer ??? Heart Disease Sister ??? No Known Problems Son ??? Seizures Daughter Social History Substance Use Topics ??? Smoking status: Never Smoker ??? Smokeless tobacco: Never Used ??? Alcohol use No Comment: wednesday mass Allergies: Compazine [prochlorperazine edisylate]; Annex; Pentazocine hcl; Prochlorperazine maleate; and Talwin [pentazocine lactate] Current Care Providers: Patient Care Team: Alberto Colindres ARNP as PCP - General (Nurse Practitioner-Family) Depression Screening: In the past two weeks, how often have you felt down, depressed, or hopeless? This week - occasional. Goes to counseling. Feels stable Fall Risk Screening: Have you had 2 or more falls in the past year or any fall with injuries within the past year? no,uses walker on occasion. Currently using with left groin strain. Health Maintenance Topic Date Due ??? Breast Cancer Screening 1950 ??? Colon Cancer Screening: Occult Blood 1950 ??? Annual Wellness Exam 07/13/1953 ??? Microalbuminuria 07/13/1961 ??? Hepatitis C Screening 07/13/1969 ??? Colon Cancer Screening: Colonoscopy 07/13/2001 ??? Zoster (1) 2011 ??? Hemoglobin A1c 03/11/2016 ??? Bone Density Screening 07/13/2016 ??? Fall Risk Assessment 07/13/2016 ??? Lipids 09/08/2016 ??? Influenza Vaccine (1) 11/06/2016 ??? Pneumococcal Vaccine (Low/Medium risk) 65+ (2 of 2 - PPSV23) 12/25/2016 Health Maintenance Due Topic Date Due ??? Breast Cancer Screening 1950 ??? Colon Cancer Screening: Occult Blood 1950 ??? Annual Wellness Exam 07/13/1953 ??? Microalbuminuria 07/13/1961 ??? Hepatitis C Screening 07/13/1969 ??? Colon Cancer Screening: Colonoscopy 07/13/2001 ??? Zoster (1) 2011 ??? Hemoglobin A1c 03/11/2016 ??? Bone Density Screening 07/13/2016 ??? Fall Risk Assessment 07/13/2016 ??? Lipids 09/08/2016 Lab Results Component Value Date WBC 7.0 08/30/2016 HGB 13.1 08/30/2016 HCT 39.5 08/30/2016 PLT 152 08/30/2016 CHOLESTEROL 177 09/09/2015 TRIG 375 (H) 09/09/2015 HDL 35 (L) 09/09/2015 LDLCALC 67 09/09/2015 ALT 10 06/22/2016 AST 12 06/22/2016 NA 142 08/30/2016 K 4.1 08/30/2016 CL 103 08/30/2016 CREATININE 1.19 08/30/2016 BUN 19 08/30/2016 CO2 27 08/30/2016 TSH 3.090 12/27/2015 INR 1.03 12/28/2015 GLU 223 (H) 08/30/2016 HGBA1C 6.1 09/09/2015 Immunization History Administered Date(s) Administered ??? Influenza Vaccine Quadrivalent PF 12/27/2015 ??? Pneumococcal Conjugate Vaccine 13 Valent 12/26/2015 OBJECTIVE: BP 118/70 Pulse 78 Temp 98 ??F (36.7 ??C) (Oral) Resp 16 Ht 5' 8 (1.727 m) Wt 256 lb (116.1 kg) SpO2 97% BMI 38.92 kg/m?? Body mass index is 38.92 kg/m??. ASSESSMENT AND PLAN: Faby was seen today for annual exam and establish care. Diagnoses and all orders for this visit: Annual physical exam Comments: will return for fasting labs. 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 is not using NTG. Iron deficiency anemia due to chronic blood loss - CBC WITH AUTO DIFF; Future Essential hypertension Comments: stable Orders: - THYROID STIMULATING HORMONE; Future - COMPREHENSIVE METABOLIC PANEL; Future - LIPID SCREEN; Future - T4, FREE (THYROXINE); Future Angina pectoris (HCC) Comments: stable Orders: - nitroGLYCERIN (NITROSTAT) 0.4 mg SL Tablet, Sublingual; Place 1 Tab under the tongue every 5 minutes as needed for Chest pain. Right groin pain - ibuprofen (ADVIL;MOTRIN) 600 mg Oral Tablet; Take 1 Tab by mouth every 6 hours as needed for Pain. Need for hepatitis C screening test - HEPATITIS C ANTIBODY - SCREENING; Future Other orders - insulin glargine (LANTUS) 100 unit/mL SubQ Solution; Inject 18 units at nighttime in subcutaneousarea.May substitute pens if covered by insurance Recommended: begin progressive daily aerobic exercise program, follow a low fat, low cholesterol diet, attempt to lose weight, reduce salt in diet and cooking, improve dietary compliance, continue current medications, continue current healthy lifestyle patterns and return for routine annual checkups. Advanced directive: no documented in this encounter Miscellaneous Notes * Patient Instructions - Alberto Colindres ARNP - 09/21/2016 2:09 PM EDT Images from the original note were not included. Increase your insulin to 18 units once a day at bedtime. Use NTG if needed for chest pain Follow up in a month. In the meantime come back for fasting labs. northing to eat or drink for ten hours before the appointment. You can take your medications and drink water. Patient Education Angina Pectoris Angina pectoris, often called angina, [...] physical activity. It especially occurs in the windshield technician hours. CAUSES Atherosclerosis is the cause of angina. This is the buildup of fat and cholesterol (plaque) on the inside of the arteries. Over time, the plaque may narrow or block the artery, and this will lessen blood flow to the heart. Plaque can also become weak and break off within a coronary artery to form aclot and cause a sudden blockage. RISK FACTORS Risk factors common to both men and women include: ?? High cholesterol levels. ?? High blood pressure (hypertension). ?? Tobacco use. ?? Diabetes. ?? Family history of angina. ?? Obesity. ?? Lack of exercise. ?? A diet high in saturated fats. Women are at greater risk for angina if they are: ?? Over age 55. ?? Postmenopausal. SYMPTOMS Many people do not experience any symptoms during the early stages of angina. As the condition progresses, symptoms common to both men and women may include: ?? Chest pain. The pain can be described as a crushing or squeezing in the chest, or a tightness, pressure, fullness, or heaviness in the chest. The pain can last more than a [...] women may have angina without any symptoms. DIAGNOSIS Tests to diagnose angina may include: ?? [...] to see if there is any blockage. TREATMENT The treatment of angina may include the following: ?? Healthy behavioral changes to reduce or control risk factors. ?? Medicine. ?? Coronary stenting.??A stent helps to keep an artery open. ?? Coronary angioplasty. This procedure widens a narrowed or blocked artery. ?? Coronary artery??bypass surgery. This will allow your blood to pass the blockage (bypass) to reach your heart. HOME CARE INSTRUCTIONS ?? Take medicines only as directed by your health care provider. ?? Do not take the following medicines unless your health care provider approves: Nonsteroidal anti-inflammatory drugs (NSAIDs), such as ibuprofen, naproxen, or celecoxib. Vitamin supplements that contain vitamin A, vitamin E, or both. Hormone replacement therapy that contains estrogen with [...] your health care provider. This is important. SEEK IMMEDIATE MEDICAL CARE IF: ?? You have pain in your chest, neck, arm, jaw, stomach, or back that lasts more than a few minutes, is recurring, or is unrelieved by taking sublingual??nitroglycerin. ?? You have profuse sweating without cause. ?? You have unexplained: Heartburn or indigestion. Shortness of breath or difficulty breathing. Nausea or vomiting. Fatigue. Feelings of nervousness or anxiety. Weakness. Diarrhea. ?? You have sudden light-headedness or [...] care provider. Document Released: 02/22/2006 Document Revised: 03/15/2015 Document Reviewed: 06/26/2014 [employer] Interactive Patient Education ??2016 [employer] * Addendum Note - Alberto Colindres ARNP - 09/21/2016 1:00 PM EDTAddended by: ALBERTO COLINDRES on: 09/27/2016 10:24 PM Modules accepted: Orders documented in this [...] documented as of this encounter Results * (ABNORMAL) HEMOGLOBIN A1C (10/22/2016 2:42 PM EDT) Hgb A1c 7.9(H) <=7.0 % [facility] Comment: Reference Interval for Hgb A1c Hgb A1c ?Interpretation ? < 6.0 ?Non-Diabetic Range 6.0 - 7.0 ? ADA Therapeutic Target ??> 7.0 ? Action suggested Blood specimen (specimen) UPPER LIMB STRUCTURE / Unknown 10/22/2016 2:42 PM EDT 10/22/2016 8:27 PM EDT Alberto Colindres POTTERY MACHINE OPERATOR CHEMISTRY ORDERABLES Mildred l Result Performing Organization Address [facility] de Phone Number [facility] [address] [place] [address] * HEPATITIS C ANTIBODY - SCREENING (10/22/2016 2:42 PM EDT) [facility] Hep C Ab Negative Negative [facility] Blood specimen (specimen) UPPER LIMB STRUCTURE / Unknown 10/22/2016 2:42 PM EDT 10/22/2016 8:27 PM EDT Alberto Colindres POTTERY MACHINE OPERATOR HEMATOLOGY ORDERABLES Fin al Result Performing Organization Address [facility] de Phone Number [facility] [address] [place] [address] * T4, FREE (THYROXINE) (10/22/2016 2:42 PM EDT) [facility] Free T4 0.81 0.80 - 2.00 ng/dL [facility] Blood specimen (specimen) UPPER LIMB STRUCTURE / Unknown 10/22/2016 2:42 PM EDT 10/22/2016 8:27 PM EDT Alberto Guoing POTTERY MACHINE OPERATOR CHEMISTRY ORDERABLES Mildred l Result Performing Organization Address [facility] de Phone Number [facility] [address] [place] [address] * (ABNORMAL) LIPID SCREEN (10/22/2016 2:42 PM EDT) Pathologist [facility] Cholesterol 164 <=200 mg/dL [facility] Comment: < 200 ?Desirable 200 - 239 ? Borderline High >= 240 ?High Triglyceride 235(H) <=150 mg/dL [facility] Comment: < 150 ? Normal 150 - 199 ?Borderline High 200 - 499 ?High ??>= 500 ? Very High HDL 48 >=40 mg/dL [facility] Comment: ?? > 60 ?Optimal 40 - 60 ?Acceptable ?? < 40 ?Low LDL Calculated 69 <=100 mg/dL [facility] Comment: ??< 100 ?Optimal 100 - 129 ? Near or above optimal 130 - 159 ? Borderline High 160 - 189 ? High >= 190 ?Very High Blood specimen (specimen) UPPER LIMB STRUCTURE / Unknown 10/22/2016 2:42 PM EDT 10/22/2016 8:27 PM EDT Alberto Colindres APRN CHEMISTRY ORDERABLES Edit ed Result - Final [facility] [address] [place] [address] * CBC WITH AUTO DIFF (10/22/2016 2:42 PM EDT) WBC 9.7 4.0 - 11.0 x10(3)/mcL [facility] RBC 4.45 3.80 - 5.10 x10(6)/mcL [facility] Hgb 13.0 12.0 - 15.6 gm/dL [facility] Hct 39.5 35.7 - 45.9 % [facility] MCV 88.6 82.5 - 99.8 fL [facility] MCH 29.1 27.0 - 34.3 pg [facility] MCHC 32.8 32.1 - 35.3 gm/dL [facility] RDW 14.7 11.5 - 15.0 % [facility] Platelet 202 144 - 423 x10(3)/mcL [facility] MPV 10.4 6.8 - 10.8 fL [facility] Blood specimen (specimen) UPPER LIMB STRUCTURE / Unknown 10/22/2016 2:42 PM EDT 10/22/2016 8:27 PM EDT Alberto Colindres POTTERY MACHINE OPERATOR HEMATOLOGY ORDERABLES Fin al Result [facility] [address] [place] [address] * (ABNORMAL) COMPREHENSIVE METABOLIC PANEL (10/22/2016 2:42 PM EDT) Sodium 143 136 - 145 mmol/L [facility] Potassium 4.5 3.5 - 5.0 mmol/L [facility] Chloride 103 98 - 107 mmol/L [facility] Total CO2 28 22 - 29 mmol/L [facility] Anion Gap 12 7 - 16 mmol/L [facility] Calcium 10.0 8.8 - 10.2 mg/dL [facility] Glucose Lvl 113(H) 82 - 100 mg/dL [facility] BUN 26(H) 8 - 23 mg/dL [facility] Creatinine 1.43(H) 0.51 - 1.30 mg/dL [facility] Albumin 3.9 3.2 - 4.6 gm/dL [facility] Total Protein 7.8 6.4 - 8.3 gm/dL [facility] Bili Total 0.4 0.1 - 1.3 mg/dL [facility] AST 9 <=40 IU/L [facility] ALT 9 <=41 IU/L [facility] Alk Phos 157(H) 35 - 104 IU/L [facility] GFR Afr Am [facility] GFR Non Afr Am [address] [facility] Blood specimen (specimen) UPPER LIMB STRUCTURE / Unknown 10/22/2016 2:42 PM EDT 10/22/2016 8:27 PM EDT Alberto Colindres POTTERY MACHINE OPERATOR CHEMISTRY ORDERABLES Edit ed Result - Final Performing Organization Address City/[facility]/ZIP Co de Phone Number [facility] [address] [place] [address] * (ABNORMAL) THYROID STIMULATING HORMONE (10/22/2016 2:42 PM EDT) TSH 5.510(H) 0.270 - 4.200 mcIU/mL [facility] Blood specimen (specimen) UPPER LIMB STRUCTURE / Unknown 10/22/2016 2:42 PM EDT 10/22/2016 8:27 PM EDT Alberto Colindres POTTERY MACHINE OPERATOR CHEMISTRY ORDERABLES Mildred l Result Performing Organization Address City/[facility] Co de Phone Number [facility] [address] [place] [address] documented in this encounter Visit Diagnoses Diagnosis Annual physical exam- Primary Routine general medical examination at a health care facility 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 Reorder 08/30/2016 09/21/2016 insulin glargine (LANTUS) 100 unit/mL SubQ Solution Subcutaneous (Inject under the skin) 15 Units every evening. Reorder 08/02/2016 09/21/2016 documented as of this encounter Historical Medications * This list may reflect changes made after this encounter. metoprolol (LOPRESSOR) 25 mg Oral Tablet Take 25 mg by mouth 2 times daily. 09/22/2016 added in this encounter Care Teams Telephone Mechanic Relationship Specialty Start Date End Date Alberto Colindres APRN [address] [place] [id number] PCP - General Nurse Practitioner-Family 09/21/16 documented as of this encounter
--- OUTSIDE RECORDS SUMMARY | 2024-02-16 14:59 | XMS_ITS | Encounter Summary ---
Author Organization [place] [address] Care Team Providers Care Commercial Sheet Metal Foreman Name Role Phone Alessandra Trevino August Primary Care Provider + Reason for Visit * Reason Onset Date Comments Medication Refill 08/04/2016 Encounter Details Date Type Department Care Team (Late st Contact Info) Description 08/04/2016 Telephone [facility] [address] [place] [address] Joanna Hitchcock MD Medication Refill Social [...] Filled Start Date End Date fUROsemide (LASIX) 20 mg Oral Tablet Take 1 Tab by mouth daily. 30 Tab 1 08/04/2016 7 insulin syringe,safetyneed le 1 mL 30 gauge x 07/21 Misc Syringe 1 Syringe by Misc.(Non-Brian g; Combo Route) route nightly. 30 Syringe 1 08/04/2016 8 documented in this encounter Miscellaneous Notes * Telephone Encounter - Josie Saunders RMA - 08/04/2016 11:02 AM EDT Spoke to Rebekah and confirmed that the lasix dose os 20 mg * Telephone Encounter - Joanna Pierce MD - 08/04/2016 10:41 AM EDT Ok to send rx for syringes. Call to confirm dose of lasix - if 20mg daily okay to have for 1 month supply since she had renal check on 07/30/16 at ER. * Telephone Encounter - Jess Rosa - 08/04/2016 10:24 AM EDT Pharmacy called wanting to know if Dr. TOLLIVER would send a rx down for needles for the pt's lantus. Shehas the vials, but was not given a rx for needles from her last PCP. The pt has a IMM[employer]RATION LAW SPECIALIST appt with Dr. TOLLIVER on 08/12. Can you call the pharmacy, they are also wondering if a rx could be filled for furosemide. They are aware that we have not seen the pt yet. Please call Thank you Total Micheline Voss documented in this encounter Plan of Treatment Not on file documented as of this encounter Visit Diagnoses Not on filedocumented in this encounter Discontinued Medications Medication Sig Discontinue Reason Start Date End Da te fUROsemide (LASIX) 20 mg Oral Tablet Take 1 Tab by mouth daily. Reorder 08/02/2016 08/04/2016 documented as of this encounter Care Teams Commercial Sheet Metal Foreman Relationship Specialty Start Date End Date Alessandra Trevino August,N [address] [facility] [address] [place] [address] PCP - General Nurse Practitioner-Family 08/29/14 09/20/16 documented as of this encounter
--- OUTSIDE RECORDS SUMMARY | 2024-02-16 14:59 | XMS_ITS | Encounter Summary ---
Author Organization [place] [address] Care Team Providers Care Ballet Teacher Name Role Phone Sharee Segovia APRN Primary Care Provider [phone] Reason for Visit * Reason Comments Medication Refill Encounter Details Date Type Department Care Team (Late st Contact Info) Description 10/05/2016 Refill [facility] [address] [place] [address] Joanna Hitchcock MD Medication Refill Social [...] Last Filled Start Date End Date RANEXA 500 mg Oral Tablet Sustained Release 12 hr Take 1 Tab by mouth every 12 hours. 28 Tab 10/05/2016 10/15/2016 documented in this encounter Plan of Treatment Not on file documented as of this encounter Goals Goal Patient Goal Type Associated Problems Recent Progress Patient-Stated? Author Blood Pressure < 140/90 Blood Pressure 124/52(2018 4:00 PM EDT) No [place], Silva S, RMA BMI (Calculated) < 30 General 35.6(10/06/19 19 4:56 PM EDT) No Silva Mathew S, RMA Maintain a healthy diet, exercise regularly and maintain an ideal body weight General No Silva Mathew S, RMA HEMOGLOBIN A1C < 7.0 Result Component 6.6( 9 9:49 AM EST) No Silva Mathew S RMA documented as of this encounter Visit Diagnoses Not on filedocumented in this encounter Care Teams Ballet Teacher Relationship Specialty Start Date End Date Sharee Segovia APRN [address] [place], [place] [phone] PCP - General Nurse Practitioner-Family 09/21/16 documented as of this encounter
--- OUTSIDE RECORDS SUMMARY | 2024-02-16 14:59 | XMS_ITS | Encounter Summary ---
Author Organization [place] [address] Care Team Providers Care Substitute Teacher Name Role Phone Alessandra Trevino August Primary Care Provider + Reason for Visit * Reason Comments Hospital Follow Up chest pains / swelli ng Dr. Devries pt (ck med list per [facility]) Coronary Artery Disease Hypertension Atrial Flutter s/p ablation aflutte r Encounter Details Date Type Department Care Team (Late st Contact Info) Description 08/12/2016 3:20 PM EDT Office Visit [facility] [place] [address] [place] [address] Becca Sykes, [address] [facility] [address] [place], [place] [id number] Coronary artery disease involving [place]qu[place] coronary artery of [place] heart with unstable angina pectoris (HCC) (Primary Dx); Essential hypertension; S/P ablation of atrial flutter; Acute on chronic diastolic (congestive) heart failure (HCC); Angina pectoris (HCC); Atrial flutter, unspecified type; JACK (acute kidney injury) (HCC); Type 2 diabetes mellitus with other diabetic kidney complication, with long-term current use of insulin (HCC); History of CVA (cerebrovascular accident); Frequent falls; Hemiparesis affecting left side as late effect of stroke (HCC) Social History Tobacco Use Types Packs/Day [...] Sign Reading Time Taken Comments Blood Pressure 116/65 08/12/2016 3:30 PM EDT Pulse 60 08/12/2016 3:30 PM EDT Temperature - - Respiratory Rate - - Oxygen Saturation - - Inhaled Oxygen Concentration - - Weight 115.7 kg (255 lb) 08/12/2016 3:30 PM EDT Height 172.7 cm (5' 8 ) 08/12/2016 3:30 PM EDT Body Mass Index 38.77 08/12/2016 3:30 PM EDT documented in this encounter Progress Notes * Becca Sykes ARNP - 08/12/2016 3:20 PM EDT ASSESSMENT AND PLAN: Coronary artery disease involving [place] coronary artery of [place]mi[place] heart with unstable angina pectoris (HCC) -LAST STRESS 07/22: NEG -LAST ECHO 07/22: NL EF -LAST CATH: 12/21: Very discrete mid LAD at trifurcation of diagonal and septal branches ffr 0.92 -Cont ranexa, acei, isoso, statin, asa -No CP Essential hypertension -Controlled on acei, ccb, S/P ablation of atrial flutter -s/p ablation 12/21-no f/u with EP since. -Arrange f/u Acute on chronic diastolic (congestive) heart failure (HCC) -Compensated-not taking lasix CKD Type 2 diabetes mellitus with other diabetic kidney complication, with long-term current use of insulin ([facility]) History of CVA (cerebrovascular accident) Hemiparesis affecting left side as late effect of stroke ([facility]) Please also reference after visit summary for additional patient education, instructions and followup plan Chief Complaint Patient presents with ??? Hospital Follow Up chest pains / swelling Dr. Devries pt (ck med list per [facility]) ??? Coronary Artery Disease ??? Hypertension ??? Atrial Flutter s/p ablation aflutter HPI: Faby Palm is here for regularly scheduled cardiology follow up of: Specialty Problems Cardiology Problems Coronary artery disease involving [place] coronary artery of [place] heart with unstable angina pectoris (HCC) Acute on chronic diastolic (congestive) heart failure (HCC) Angina pectoris (HCC) Atrial flutter (HCC) Essential hypertension S/P ablation of atrial flutter Precordial pain Chronic LUONG over last 6 mos. No CP to speak of since hosp. Sedentary due to ortho complaints. The patient currently denies any of the following symptoms chest pain, SOB, palpitations, dizziness, syncope, angina, LUONG, orthopnea, PND, edema. Patient denies side effect to prescribed medications. REVIEW OF SYSTEMS: ?? NEGATIVE FOR: ?? Bleeding ?? Fevers ?? Weight Loss ?? Visual Disturbance ?? POSITIVE FOR: ?? none Per [facility] nursing notes ,remainder of ROS was [...] Suicide attempt (HCC) ??? Yeast infection recurrent PAST SURGICAL HISTORY: Past Surgical History: Procedure Laterality Date ??? ABLATION OF DYSRHYTHMIC FOCUS 12/31/[address] Tee ??? ANKLE SURGERY ??? BREAST SURGERY ??? JOINT REPLACEMENT ??? LUNG SURGERY ??? ORTHOPEDIC SURGERY ??? TONSILLECTOMY ??? UPPER GASTROINTESTINAL ENDOSCOPY N/A 04/03/2015 ESOPHAGOGASTRODUODENOSCOPY WITH BIOPSY AND BRUSHING; Surgeon: Be Brown MD; Location: [facility]; Service: Endoscopy ALLERGIES: Allergies Allergen Reactions ??? Compazine [Prochlorperazine Edisylate] ??? Britton ??? Pentazocine Hcl ??? Prochlorperazine Maleate ??? Talwin [Pentazocine Lactate] MEDICATIONS: Current Outpatient Prescriptions on File Prior to [...] Take 81 mg by mouth daily. ??? ferrous sulfate 325 mg (65 mg iron) Oral Tablet Take 1 Tab by mouth 2 times daily (with meals).60 Tab 5 ??? gabapentin (NEURONTIN) 100 mg Oral Capsule Take 100 mg by mouth nightly. ??? glipiZIDE (GLUCOTROL) 10 mg Oral Tablet Take 10 mg by mouth 2 times daily (with meals). ??? hydrOXYzine (ATARAX) 25 mg Oral Tablet Take 25 mg by mouth 2 times daily. Indications: ANXIETY ??? insulin glargine (LANTUS) 100 unit/mL SubQ Solution Subcutaneous (Inject under the skin) 15 Units every evening. 10 mL 12 ??? NIFEdipine (PROCARDIA XL) 90 mg Oral Tablet Extended Rel 24 hr Take 1 Tab by mouth daily. 30 Tab 1 ??? pantoprazole (PROTONIX) 40 mg Oral Tablet, Delayed Release (E.C.) Take 1 Tab by mouth daily. 30Tab 1 ??? risperiDONE (RISPERDAL) 1 mg Oral Tablet Take 2 mg by mouth nightly. ??? roPINIRole (REQUIP) 0.5 mg Oral Tablet Take 1.5 mg by mouth nightly. ??? sitaGLIPtin (JANUVIA) 100 mg Oral Tablet Take 100 mg by mouth daily. ??? venlafaxine (EFFEXOR-XR) 150 mg Oral Capsule, Sust. Release 24 hr Take 300 mg by mouth nightly. ??? atorvastatin (LIPITOR) 20 mg Oral Tablet Take 1 Tab by mouth nightly. (Patient not taking: Reported on 08/12/2016) 30 Tab 1 ??? fUROsemide (LASIX) 20 mg Oral Tablet Take 1 Tab by mouth daily. (Patient not taking: Reported on 08/12/2016) 30 Tab 1 ??? insulin syringe,safetyneedle 1 mL 30 gauge x 5/16 Misc Syringe 1 Syringe by Misc.(Non-Drug; Combo Route) route nightly. 30 Syringe 1 ??? isosorbide mononitrate (IMDUR) 60 mg Oral Tablet Sustained Release 24 hr Take 1 Tab by mouth daily. (Patient not taking: Reported on 08/12/2016) 30 Tab 1 ??? ranolazine (RANEXA) 500 mg Oral Tablet Sustained Release 12 hr Take 1 Tab by mouth every 12 hours. (Patient not taking: Reported on 08/12/2016) 60 Tab 1 ??? sertraline (ZOLOFT) 100 mg Oral Tablet Take 150 mg by mouth daily. Reported on 08/12/2016 No current facility-administered medications on file prior to visit. SOCIAL HISTORY: Social History Social History ??? Marital status: Spouse name: N/A ??? Number of children: N/A ??? Years of education: N/A Occupational History ??? Not on file. Social History Main Topics ??? Smoking status: Never Smoker ??? Smokeless tobacco: Never Used ??? Alcohol use No ??? Drug use: No ??? Sexual activity: Not on file Other Topics Concern ??? Not on file Social History Narrative FAMILY HISTORY: Family History Problem Relation Age of Onset ??? Cancer Mother raffaele cancer PHYSICAL EXAMINATION: Vitals: 08/12/16 1530 BP: 116/65 Pulse: 60 Body mass index is 38.77 kg/(m^2). Wt Readings from Last 3 Encounters: 08/12/16 255 lb (115.7 kg) 08/02/16 251 lb 3.2 oz (113.9 kg) 06/23/16 255 lb 1.6 oz (115.7 kg) CONSTITUTIONAL: ?? Vital signs are noted [...] venous pressure is normal ?? Edema is absent GASTROINTESTINAL: ?? Bowel sounds are normal ?? Abdomen is soft and non tender MUSCULOSKELETAL: ?? Clubbing is absent ?? Cyanosis is absent ?? Gait is in w/c SKIN: ?? Rashes are visually absent ?? [...] WORK: Lab Results Component Value Date CHOLESTEROL 177 09/09/2015 HDL 35 (L) 09/09/2015 LDLCALC 67 09/09/2015 TRIG 375 (H) 09/09/2015 Lab Results Component Value Date INR 1.03 12/28/2015 Lab Results Component Value Date WBC 7.6 07/30/2016 HGB 12.1 07/30/2016 HCT 36.7 07/30/2016 MCV 87.8 07/30/2016 PLT 174 07/30/2016 Lab Results Component Value Date HGBA1C 6.1 09/09/2015 Lab Results Component Value Date NA 139 07/30/2016 K 4.2 07/30/2016 BUN 20 07/30/2016 CALCIUM 9.0 07/30/2016 CL 101 07/30/2016 CO2 26 07/30/2016 CREATININE 1.43 (H) 07/30/2016 GLU 224 (H) 07/30/2016 Lab Results Component Value Date ALT 10 06/22/2016 AST 12 06/22/2016 GGT 49 (H) 09/09/2015 ALKPHOS 195 (H) 06/22/2016 Lab Results Component Value Date TSH 3.090 12/27/2015 ECG: No results found for this visit on 08/12/16. ACTIVE PROBLEM LIST: There are no active hospital problems to display for this patient. IMAGING AND LABS ORDERED THIS VISIT: None No orders of the defined types were placed in this encounter. MEDICINES CHANGED THIS VISIT: Requested Prescriptions No prescriptions requested or ordered in this encounter Medications Discontinued During This Encounter Medication Reason ??? lisinopril (PRINIVIL;ZESTRIL) 10 mg Oral Tablet Dose adjustment ??? guaiFENesin (ROBITUSSIN) 100 mg/5 mL Oral Liquid Therapy completed documented in this encounter Miscellaneous Notes * Patient Instructions - Becca Sykes ARNP - 08/12/2016 3:20 PM EDT F/u with Dr. Tee documented in this encounter Plan of Treatment [...] Visit Diagnoses Diagnosis Coronary artery disease involving [place] coronary artery of [place]qu[place] heart with unstable angina pectoris (HCC)- Primary Essential hypertension Unspecified essential hypertension S/P ablation of atrial flutter Other postprocedural status Acute on chronic diastolic (congestive) heart failure (HCC) Angina pectoris (HCC) Other and unspecified angina pectoris Atrial flutter, unspecified type (HCC) JACK (acute kidney injury) (HCC) Acute kidney failure, unspecified Type 2 diabetes mellitus with other diabetic kidney complication, with long-term current use of insulin (HCC) History of CVA (cerebrovascular accident) Transient ischemic attack (TIA), and cerebral infarction without residual deficits Frequent falls Personal history of fall Hemiparesis affecting left side as late effect of stroke (HCC) Hemiplegia affecting unspecified side, late effect of cerebrovascular disease documented in this encounter Discontinued Medications Medication Sig Discontinue Reason Start Date End Da te lisinopril (PRINIVIL;ZESTRIL) 10 mg Oral Tablet Take 5 mg by mouth daily. Dose adjustment 08/12/2016 guaiFENesin (ROBITUSSIN) 100 mg/5 mL Oral Liquid Take 10 mL by mouth every 4 hours as needed. DELETE-Therapy completed 08/02/2016 08/12/2016 documented as of this encounter Historical Medications * This list may reflect changes made after this encounter. lisinopril (PRINIVIL;ZESTRIL ) 5 mg Oral Tablet Take by mouth daily. 11/17/2016 added in this encounter Care Teams Substitute Teacher Relationship Specialty Start Date End Date Delmiscamilotone Alessandra August, [address] [facility] [address] [place] [address] PCP - General Nurse Practitioner-Family 08/29/14 09/20/16 documented as of this encounter
--- OUTSIDE RECORDS SUMMARY | 2024-02-16 14:59 | XMS_ITS | Encounter Summary ---
Author Organization [place] [address] Care Team Providers Care Telecommunication Lines Repairer Name Role Phone Alessandra Trevino August Primary Care Provider + Reason for Visit * Reason Comments Chest Pain Patient brought by [facility]. C/O left sided chest pain radiating towards jaw and left arm. started an hour 1/2 ago. Received 324 aspirin and 2 nitro SL. Chest pain went from 8 to 2 out of ten. Encounter Details Date Type Department Care Team (Late st Contact Info) Description 08/30/2016 12:37 PM EDT - 08/30/2016 5:34 PM EDT Emergency [facility] Emergency [address] [place] [address] Anthony Fish MD [address] [place] [id number] Angina pectoris (HCC) (Primary Dx) Discharge Disposition: Home or Self [...] Sign Reading Time Taken Comments Blood Pressure 132/70 08/30/2016 5:33 PM EDT Pulse 69 08/30/2016 5:33 PM EDT Temperature 37.2 ??C (98.9 ??F) 08/30/2016 1 2:44 PM EDT Respiratory Rate 18 08/30/2016 5:33 PM EDT Oxygen Saturation 99% 08/30/2016 5:33 PM EDT Inhaled Oxygen Concentration - - Weight 110.8 kg (244 lb 4.8 oz) 017 12:44 PM EDT Height 172.7 cm (5' 8 ) 08/30/2016 12:4 4 PM EDT Body Mass Index 37.15 08/30/2016 12:44 PM EDT documented in this encounter Discharge Instructions * Attachments The following attachments cannot be sent through Care Everywhere. * NONSPECIFIC CHEST PAIN, [id number] (ZAMBIAN) documented in this encounter Medications at Time [...] takes 1 to 2 tabs as needed 10/06/2018 ARIPiprazole (ABILIFY) 10 mg Oral Tablet Take 30 mg by mouth 2 times daily. 02/23/2017 gabapentin (NEURONTIN) 100 mg Oral Capsule Take 100 mg by mouth 3 times daily. Take 2 capsules by mouth 3 times daily 02/23/2017 glipiZIDE (GLUCOTROL) 10 mg Oral Tablet Take 10 mg by mouth 2 times daily (with meals). 09/21/2017 hydrOXYzine (ATARAX) 25 mg Oral TabletIndication s:anxiety Take 25 mg by mouth 2 times daily. Indications: ANXIETY 02/23/2017 insulin syringe,safetyne edle 1 mL 30 gauge x 16 Misc Syringe 1 Syringe by Misc.(Non-Drug ; Combo Route) route nightly. 30 Syringe 1 08/04/2016 05/12/2017 NIFEdipine (PROCARDIA XL) 90 mg Oral Tablet Extended Rel 24 hr Take 1 Tab by mouth daily. 30 Tab 1 06/24/2016 05/12/2017 risperiDONE (RISPERDAL) 1 mg Oral Tablet Take 2 mg by mouth nightly. 02/23/2017 sitaGLIPtin (JANUVIA) 100 mg Oral Tablet Take 100 mg by mouth daily. 02/23/2017 venlafaxine (EFFEXOR-XR) 150 mg Oral Capsule, Sust. Release 24 hr Take 300 mg by mouth nightly. 10/15/2016 documented as of this encounter Ordered Prescriptions Prescription Sig Dispense Quantity Refills Last Filled Start Date End Date nitroGLYCERIN (NITROSTAT) 0.4 mg SL Tablet, Sublingual Place 1 Tab under the tongue every 5 minutes as needed for Chest pain. 20 Tab 08/30/2016 7 documented in this encounter Discharge Disposition Disposition Code Departure Means Destination Home or Self Assisted documented in this encounter Progress Notes * Ela Curieln - 08/30/2016 5:25 PM EDT 08/30/16 1723 Pastoral Care Encounter Visited With Patient Date of visit 08/30/16 Visit Type Initial Need to follow-up? Yes Islam Needs Prayer Spiritual Needs Faith? Hindu Islam Affiliation [facility] Pastoral Care Issues Comments prayer for healing of heart, blessings for family and staff, will keep in prayer Pastoral Care Plan/Intervention Plan/Intervention Spiritual-Emotional needs addressed;Active Listening;Prayer Plan/Intervention Comments Ela 08/30/2016 Ela Curiel documented in this encounter ED Notes * Eliza Contreras RN - 08/30/2016 5:20 PM EDT Per home health care case manager at [facility] has a contract with [employer] to get the pt back. * Eliza Contreras RN - 08/30/2016 5:06 PM EDT Staff with [facility] called stating cab will pick pt up in 20 min. * Shahzad Correa RN - 08/30/2016 4:50 PM EDT Attempting to get a hold of [facility]. Busy signal at all number's provided * Anthony Fish MD - 08/30/2016 12:33 PM EDT Chief Complaint Patient presents with ??? Chest Pain Patient brought by [facility]. C/O left sided chest pain radiating towards jaw and left arm. started an hour 1/2 ago. Received 324 aspirin and 2 nitro SL. Chest pain went from 8 to 2 out of ten. 66-year-old female presents to the emergency department with chest pain. The pain began one or 2 hours ago. She was in the shower when it began. Pain is just left of center. She says it feels like jamaale is sitting on my chest. Pain does not radiate. It is associated with shortness of breath. She denies nausea, vomiting or diaphoresis. She called 911 and was transported via EMS. She was given 4 baby aspirin and sublingual nitroglycerin. Her pain went from an 8/10- 2/10 with nitroglycerin. However, pain has returned to 7.5/10 currently. She has a history of COPD, CHF, diabetes, mood disorderand atrial flutter status post ablation. She does not smoke. She was admitted to the hospital last month for chest pain. She had a normal Lexiscan stress test and echocardiogram. She was felt to be slightly volume overloaded and given diuresis. Last angiogram was 12/21, which showed very discrete disease at mid LAD trifurcation. Chest Pain Associated symptoms: shortness of breath Associated symptoms: no abdominal pain, no fever, no nausea and no vomiting Allergies Allergen Reactions ??? Compazine [Prochlorperazine Edisylate] ??? [place] ??? Pentazocine Hcl ??? Prochlorperazine Maleate ??? [place] [Pentazocine Lactate] Home Medications: Prior to Admission medications Medication Sig Start Date End Date Taking? Authorizing Provider acetaminophen 325 mg Oral Tab Take 650 mg by mouth every 4 hours as needed for Pain. Provider, Historical amitriptyline (ELAVIL) 75 mg Oral Tablet Take 75 mg by mouth nightly. Provider, Historical ARIPiprazole (ABILIFY) 10 mg Oral Tablet Take 30 mg by mouth daily. Provider, Historical aspirin 81 mg Oral Tablet, Delayed Release (E.C.) Take 81 mg by mouth daily. Provider, Historical atorvastatin (LIPITOR) 20 mg Oral Tablet Take 1 Tab by mouth nightly. Patient not taking: Reported on 08/12/2016 06/24/16 Campbell Huston MD ferrous sulfate 325 mg (65 mg iron) Oral Tablet Take 1 Tab by mouth 2 times daily (with meals). 04/04/15 Campbell Huston MD fUROsemide (LASIX) 20 mg Oral Tablet Take 1 Tab by mouth daily. Patient not taking: Reported on 08/12/2016 08/04/16 Joanna Pierce MD gabapentin (NEURONTIN) 100 mg Oral Capsule Take 100 mg by mouth nightly. Provider, Historical glipiZIDE (GLUCOTROL) 10 mg Oral Tablet Take 10 mg by mouth 2 times daily (with meals). Provider, Historical hydrOXYzine (ATARAX) 25 mg Oral Tablet Take 25 mg by mouth 2 times daily. Indications: ANXIETY Provider, Historical insulin glargine (LANTUS) 100 unit/mL SubQ Solution Subcutaneous (Inject under the skin) 15 Units every evening. 08/02/16 Tr Story MD insulin syringe,safetyneedle 1 mL 30 gauge x 07/21 [facility] [place] 1 Syringe by [facility]Non-Drug; Combo Route) route nightly. 08/04/16 Joanna Pierce MD isosorbide mononitrate (IMDUR) 60 mg Oral Tablet Sustained Release 24 hr Take 1 Tab by mouth daily. Patient not taking: Reported on 08/12/2016 06/24/16 Campbell Huston MD lisinopril (PRINIVIL;ZESTRIL) 5 mg Oral Tablet Take by mouth daily. Provider, Historical NIFEdipine (PROCARDIA XL) 90 mg Oral Tablet Extended Rel 24 hr Take 1 Tab by mouth daily. 06/24/16 Campbell Huston MD pantoprazole (PROTONIX) 40 mg Oral Tablet, Delayed Release (E.C.) Take 1 Tab by mouth daily. 06/24/16 Campbell Huston MD ranolazine (RANEXA) 500 mg Oral Tablet Sustained Release 12 hr Take 1 Tab by mouth every 12 hours. Patient not taking: Reported on 08/12/2016 06/24/16 Campbell Huston MD risperiDONE (RISPERDAL) 1 mg Oral Tablet Take 2 mg by mouth nightly. Provider, Historical roPINIRole (REQUIP) 0.5 mg Oral Tablet Take 1.5 mg by mouth nightly. Provider, Historical sertraline (ZOLOFT) 100 mg Oral Tablet Take 150 mg by mouth daily. Reported on 08/12/2016 Provider, Historical sitaGLIPtin [...] drink alcohol or use drugs. Family History: Family History Problem Relation Age of Onset ??? Cancer Mother raffaele cancer Surgical History: Past Surgical History: Procedure Laterality Date ??? ABLATION OF DYSRHYTHMIC FOCUS 12/31/[address] Dr[address] Tee ??? ANKLE SURGERY ??? BREAST SURGERY ??? JOINT REPLACEMENT ??? LUNG SURGERY ??? ORTHOPEDIC SURGERY ??? TONSILLECTOMY ??? UPPER GASTROINTESTINAL ENDOSCOPY N/A 04/03/2015 ESOPHAGOGASTRODUODENOSCOPY WITH BIOPSY AND BRUSHING; Surgeon: Be Brown MD; Location: [facility]; Service: Endoscopy Review of Systems Constitutional: Negative for chills and fever. HENT: Negative. Eyes: Negative. Respiratory: Positive for shortness of breath. Cardiovascular: Positive for chest pain. Gastrointestinal: Negative for abdominal pain, diarrhea, nausea and vomiting. Genitourinary: Negative for dysuria and frequency. Musculoskeletal: Negative. Skin: Negative for rash. Neurological: Negative. Psychiatric/Behavioral: Negative. All other systems reviewed and are negative. Blood pressure 131/78, pulse 97, temperature 98.9 ??F (37.2 ??C), temperature source Oral, resp. rate 20, height 5' 8 (1.727 m), weight 244 lb 4.8 oz (110.8 kg), SpO2 98 %. Physical Exam Constitutional: She is oriented to person, place, and time. She appears well- developed and well-nourished. No distress. HENT: Head: Normocephalic and atraumatic. Mouth/Throat: Oropharynx is clear and moist. Eyes: Conjunctivae and EOM are normal. Neck: Normal range of motion. Neck supple. Cardiovascular: Normal rate and regular rhythm. Exam reveals no gallop and no friction rub. No murmur heard. Pulmonary/Chest: Effort normal and breath sounds normal. No respiratory distress. Abdominal: Soft. She exhibits no distension. There is no tenderness. Musculoskeletal: She exhibits no edema. Neurological: She is alert and oriented to person, place, and time. Skin: Skin is warm and dry. No rash noted. Psychiatric: She has a normal mood and affect. Nursing note and vitals reviewed. Procedures Radiology/EKG/Labs: Results for orders placed or performed during the hospital encounter of 08/30/16 XR CHEST PA AND LATERAL Narrative XR CHEST PA AND LATERAL 08/30/2016 1:09 PM HISTORY: -chest pain. COMPARE: July 30, 2016 FINDINGS: Lung volumes are low. Cardiac size borderline but stable. No definite evidence of focal infiltrate Study of the base is again limited due to overlying soft tissues Impression Somewhat limited study but no definite acute findings CBC WITH AUTO DIFF Result Value Ref Range WBC 7.0 4.0 - 11.0 x10(3)/mcL RBC 4.58 3.80 - 5.10 x10(6)/mcL Hgb 13.1 12.0 - 15.6 gm/dL Hct 39.5 35.7 - 45.9 % MCV 86.3 82.5 - 99.8 fL MCH 28.7 27.0 - 34.3 pg MCHC 33.3 32.1 - 35.3 gm/dL RDW 14.1 11.5 - 15.0 % Platelet 152 144 - 423 x10(3)/mcL MPV 9.8 6.8 - 10.8 fL BASIC METABOLIC PANEL Result Value Ref Range Sodium 142 136 - 145 mmol/L Potassium 4.1 3.5 - 5.0 mmol/L Chloride 103 98 - 107 mmol/L Total CO2 27 22 - 29 mmol/L Anion Gap 12 7 - 16 mmol/L Calcium 9.1 8.8 - 10.2 mg/dL Glucose Lvl 223 (H) 82 - 100 mg/dL BUN 19 8 - 23 mg/dL Creatinine 1.19 0.51 - 1.30 mg/dL GFR Afr Am 55 GFR Non Afr Am 46 TROPONIN-T Result Value Ref Range Troponin-T <0.01 <=0.00 ng/mL TROPONIN-T Result Value Ref Range Troponin-T <0.01 <=0.00 ng/mL DIFFERENTIAL Result Value Ref Range Neut Percent 66.6 % Lymph Percent 24.3 % Crosby Percent 5.7 % Eos Percent 2.3 % Baso Percent 1.1 % Neut# 4.7 1.8 - 7.7 x10(3)/mcL Lymph# 1.7 0.6 - 4.8 x10(3)/mcL Crosby# 0.4 0.0 - 1.3 x10(3)/mcL Eos# 0.2 0.0 - 0.5 x10(3)/mcL Baso# 0.1 0.0 - 0.2 x10(3)/mcL EK EKG 12 LEAD Impression Stationary ECG Study [facility] Interpretive Statements SINUS TACHYCARDIA LOW QRS VOLTAGE IN EXTREMITY LEADS [QRS DEFLECTION < 0.5 mV IN LIMB LEADS] INFERIOR MYOCARDIAL INFARCTION [40+ ms Q WAVE AND/OR ST/T ABNORMALITY IN II/aVF], PROBABLY OLD ANTEROSEPTAL MYOCARDIAL INFARCTION [40+ ms Q WAVE IN V1-V4], PROBABLY OLD Electronically Signed On 08-30-2016 14:59:04 EDT by Kamari Goss MD ED Course: Appropriate laboratory and radiology studies reviewed Her EKG is unchanged and troponin is negative. She was given nitro paste and her pain has improved. An admission for chest pain and had a cardiac workup including stress test and echocardiogram, which were unremarkable. I spoke with Dr. Cardoso, conductor pullman for cardiology. Based on her angiogram 8 months ago and recent stress test and echocardiogram that were unremarkable, he feels that the patient can be discharged home after she is ruled out in the emergency department. She started on a calcium channel laquita, Imdur and Ranexa. He recommended discharging her with a prescription for sublingual nitroglycerin to use as needed for her stable angina. Otherwise, she does not require admission and can follow up with cardiology as an outpatient. ED Clinical Impression: Angina pectoris (HCC) (primary encounter diagnosis) Critical Care time Condition at Discharge/Transfer from Department: Improved This chart was completed using voice recognition technology and may contain unintended errors Anthony Fish MD 08/30/16 3005 documented in this encounter Plan of Treatment [...] Priority Date/Time Associated Diagnosis Comments TROPONIN-T STAT 08/30/2016 3:42 PM EDT TROPONIN-T STAT 08/30/2016 1:20 PM EDT DIFFERENTIAL STAT 08/30/2016 1:20 PM EDT CBC WITH DIFF STAT 08/30/2016 1:20 PM EDT BASIC METABOLIC PANEL STAT 08/30/2016 1:20 PM EDT XR CHEST PA AND LATERAL EMMY 08/30/2016 1:09 PM EDT EK EKG 12 LEAD STAT 08/30/2016 12:37 PM EDT SALINE LOCK IV STAT 08/30/2016 12:37 PM EDT documented in this encounter Results * TROPONIN-T (08/30/2016 3:42 PM EDT) [facility] Troponin-T <0.01 <=0.00 ng/mL [facility] Comment: Values > or = 0.01 ng/mL have been shown to have prognostic value. Blood specimen (specimen) 08/30/2016 3:42 PM EDT 08/30/2016 3:42 PM EDT Anthony Fish MD CHEMISTRY ORDERABLES Final Result Performing Organization Address City/State/[facility] Co de Phone Number [place] [phone] * DIFFERENTIAL (08/30/2016 1:20 PM EDT) [facility] Neut Percent 66.6 % [facility] Lymph Percent 24.3 % [facility] Crosby Percent 5.7 % [facility] Eos Percent 2.3 % [facility] Baso Percent 1.1 % [facility] Neut# 4.7 1.8 - 7.7 x10(3)/mcL [facility] Lymph# 1.7 0.6 - 4.8 x10(3)/mcL [facility] Crosby# 0.4 0.0 - 1.3 x10(3)/mcL [facility] Eos# 0.2 0.0 - 0.5 x10(3)/mcL [facility] Baso# 0.1 0.0 - 0.2 x10(3)/mcL [facility] Blood specimen (specimen) 08/30/2016 1:20 PM EDT 08/30/2016 1:22 PM EDT [facility] HEMATOLOGY ORDERABL ES Final Result Performing Organization Address [facility] Co de Phone Number [facility] [address] [place] [address] * TROPONIN-T (08/30/2016 1:20 PM EDT) Troponin-T <0.01 <=0.00 ng/mL [facility] Comment: Values > or = 0.01 ng/mL have been shown to have prognostic value. Blood specimen (specimen) 08/30/2016 1:20 PM EDT 08/30/2016 1:22 PM EDT Anthony Fish MD CHEMISTRY ORDERABLES Final Result Performing Organization Address [facility] Phone Number [facility] [address] [place] [address] * (ABNORMAL) BASIC METABOLIC PANEL (08/30/2016 1:20 PM EDT) Pathologist [facility] Sodium 142 136 - 145 mmol/L [facility] Potassium 4.1 3.5 - 5.0 mmol/L [facility] Chloride 103 98 - 107 mmol/L [facility] Total CO2 27 22 - 29 mmol/L [facility] Anion Gap 12 7 - 16 mmol/L [facility] Calcium 9.1 8.8 - 10.2 mg/dL [facility] Glucose Lvl 223(H) 82 - 100 mg/dL [facility] BUN 19 8 - 23 mg/dL [facility] Creatinine 1.19 0.51 - 1.30 mg/dL [facility] GFR Afr Am 55 [facility] GFR Non Afr Am 46 [facility] Blood specimen (specimen) UPPER LIMB STRUCTURE / Unknown 08/30/2016 1:20 PM EDT 08/30/2016 1:22 PM EDT Anthony Fish MD CHEMISTRY ORDERABLES Edited Result - Final Performing Organization Address [facility] de Phone Number [facility] [address] [place] [address] * CBC WITH AUTO DIFF (08/30/2016 1:20 PM EDT) [facility] WBC 7.0 4.0 - 11.0 x10(3)/mcL [facility] RBC 4.58 3.80 - 5.10 x10(6)/mcL [facility] Hgb 13.1 12.0 - 15.6 gm/dL [facility] Hct 39.5 35.7 - 45.9 % [facility] MCV 86.3 82.5 - 99.8 fL [facility] MCH 28.7 27.0 - 34.3 pg [facility] MCHC 33.3 32.1 - 35.3 gm/dL [facility] RDW 14.1 11.5 - 15.0 % [facility] Platelet 152 144 - 423 x10(3)/mcL [facility] MPV 9.8 6.8 - 10.8 fL [facility] Blood specimen (specimen) UPPER LIMB STRUCTURE / Unknown 08/30/2016 1:20 PM EDT 08/30/2016 1:22 PM EDT Anthony Fish MD HEMATOLOGY ORDERABLE S Final Result Performing Organization Address [facility] Co de Phone Number [facility] [address] [place] [address] * XR CHEST PA AND LATERAL (08/30/2016 1:09 PM EDT) Anatomical Region Laterality Modality Chest Radiographic Whit ging 08/30/2016 1:09 PM EDT Impressions 08/30/2016 1:17 PM EDT Somewhat limited study but no definite acute findings Narrative 08/30/2016 1:17 PM EDT XR CHEST PA AND LATERAL ?? 08/30/2016 1:09 PM HISTORY: ??-chest pain. ?? COMPARE: July 30, 2016 FINDINGS: Lung volumes are low. Cardiac size borderline but stable. No definite evidence of focal infiltrate Study of the base is again limited due to overlying soft tissues Procedure Note Mayo Dominguez MD - 08/30/2016 XR CHEST PA AND LATERAL 08/30/2016 1:09 PM HISTORY: -chest pain. COMPARE: July 30, 2016 FINDINGS: Lung volumes are low. Cardiac size borderline but stable. No definiteevidence of focal infiltrate Study of the base is again limited due to overlying soft tissues IMPRESSION: Somewhat limited study but no definite acute findings us Anthony Fish MD IMG DIAGNOSTIC IMAGI NG ORDERABLES Final Result * EK EKG 12 LEAD (08/30/2016 12:37 PM EDT) Anatomical Region Laterality Modality Electrocardiogra phy 08/30/2016 12:4 5 PM EDT Impressions 08/30/2016 2:59 PM EDT ? Stationary ECG Study ? [facility] ? Interpretive Statements ? SINUS TACHYCARDIA LOW QRS VOLTAGE IN EXTREMITY LEADS [QRS DEFLECTION < 0.5 mV IN LIMB LEADS] INFERIOR MYOCARDIAL INFARCTION [40+ ms Q WAVE AND/OR ST/T ABNORMALITY IN II/aVF], PROBABLY OLD ANTEROSEPTAL MYOCARDIAL INFARCTION [40+ ms Q WAVE IN V1-V4], PROBABLY OLD Electronically Signed On 08-30-2016 14:59:04 EDT by Kamari Goss MD Narrative Procedure Note Kamari Goss MD - 08/30/[address] IM[address] ECG Study [facility] Interpretive Statements SINUS TACHYCARDIA LOW QRS VOLTAGE IN EXTREMITY LEADS [QRS DEFLECTION < 0.5 mV IN LIMBLEADS] INFERIOR MYOCARDIAL INFARCTION [40+ ms Q WAVE AND/OR ST/T ABNORMALITY IN II/aVF], PROBABLY OLD ANTEROSEPTAL MYOCARDIAL INFARCTION [40+ ms Q WAVE IN V1-V4], PROBABLYOLD Electronically Signed On 08-30-2016 14:59:04 EDT by Kamari Goss MD Anthony Fish MD IMG ECG ORDERABLES F inal Result documented in this encounter Visit Diagnoses Diagnosis Angina pectoris (HCC)- Primary Other and unspecified angina pectoris documented in this encounter Administered Medications Inactive Administered Medications - up to 1 most recent administrations Medication Order MAR Action Action Date Dose Rate Site nitroGLYCERIN (NITROGLYN) 2 % ointment 1 Inch 1 Inch, Topical, ONCE, 1 dose, On 08/30/16 at 1345, Wipe off old dose, apply to chest wall Patch Applied 08/30/2016 1:36 PM EDT 1 Inch sodium chloride 0.9% IV line flush 50 mL 50 mL, Intravenous, at 150-600 mL/hr, PRN, Starting on 08/30/16 at 1235, Until 08/30/16 at 2140, Line Care, Flush with a minimum of 20 mL after IVPB to insure complete administration of the dose. May use the saline infusion to back flush IVPB tubing as needed., Use this order to document priming and flushing IV line after medication administration. sodium chloride 0.9% syringe 5 mL 5 mL, Intravenous, PRN, Starting on 08/30/16 at 1235, Until 08/30/16 at 2140, Line Care, Flush with 5 mL saline pre/post IVP, and 5 mL prior to IVPB or blood product administration. Protocol for PERIPHERAL IV saline lock maintenance, flush with 3-5 mL saline syringe every 8 hours., Flush every shift or after IV medication documented in this encounter Active and Recently Administered Medications Times are shown in EDT. Scheduled Medication Order 08/28/2016 08/29/2016 08/30/2016 nitroGLYCERIN (NITROGLYN) 2 % ointment 1 Inch (COMPLETED) 1 Inch, Topical, ONCE, 1 dose, On 08/30/16 at 1345, Wipe off old dose, apply to chest wall 1336 (Patch Applied - Provider: Shahzad Correa RN) PRN Medication Order 08/28/2016 08/29/2016 08/30/2016 sodium chloride 0.9% IV line flush 50 mL 50 mL, Intravenous, at 150-600 mL/hr, PRN, Starting on 08/30/16 at 1235, Until 08/30/16 at 2140, Line Care, Flush with a minimum of 20 mL after IVPB to insure complete administration of the dose. May use the saline infusion to back flush IVPB tubing as needed., Use this order to document priming and flushing IV line after medication administration. sodium chloride 0.9% syringe 5 mL 5 mL, Intravenous, PRN, Starting on 08/30/16 at 1235, Until 08/30/16 at 2140, Line Care, Flush with 5 mL saline [...] 0.9% IV line flush 50 mL 1 08/30/2016 sodium chloride 0.9% syringe 5 mL 1 017 Nursing Count Last Ordered Date First Orde red Date CARDIAC MONITORING 1 08/30/2016 IV Count Last Ordered Date First Orde red Date SALINE LOCK IV 1 08/30/2016 documented in this encounter Care Teams Telecommunication Lines Repairer Relationship Specialty Start Date End Date VerotoneAlessandra August, [address] [facility] [address] [place] [address] PCP - General Nurse Practitioner-Family 08/29/14 09/20/16 documented as of this encounter
--- OUTSIDE RECORDS SUMMARY | 2024-02-16 14:59 | XMS_ITS | Encounter Summary ---
Author Organization [place] [address] Care Team Providers Care Kiln Tester Name Role Phone Sharee Segovia APRN Primary Care Provider [phone] Reason for Visit * Reason Comments Medication Refill Encounter Details Date Type Department Care Team (Late st Contact Info) Description 10/02/2016 Refill SEP Sunny [address] [place] [address] Joanna Hitchcock MD Medication Refill Social [...] TAKE ONE TABLET BY MOUTH TWICE DAILY 60 Tab 10/02/2016 10/15/2016 documented in this encounter Plan of Treatment Not on file documented as of this encounter Goals Goal Patient Goal Type Associated Problems Recent Progress Patient-Stated? Author Blood Pressure < 140/90 Blood Pressure 124/52(2018 4:00 PM EDT) No [place], Silva S, RMA BMI (Calculated) < 30 General 35.6(10/06/19 19 4:56 PM EDT) No Silva Mathew S RMRonaldo Maintain a healthy diet, exercise regularly and maintain an ideal body weight General No Silva Mathew, ROSIRonaldo HEMOGLOBIN A1C < 7.0 Result Component 6.6( 9 9:49 AM EST) No Silva Mathew RMA documented as of this encounter Visit Diagnoses Not on filedocumented in this encounter Discontinued Medications Medication Sig Discontinue Reason Start Date End Da te RANEXA 500 mg Oral Tablet Sustained Release 12 hr Take 1 Tab by mouth every 12 hours. Reorder 09/22/2016 10/02/2016 documented as of this encounter Care Teams Kiln Tester Relationship Specialty Start Date End Date Sharee Segovia APRN [address] [place] [address] PCP - General Nurse Practitioner-Family 09/21/16 documented as of this encounter
--- OUTSIDE RECORDS SUMMARY | 2024-02-16 14:59 | XMS_ITS | Encounter Summary ---
Author Organization [place] [address] Care Team Providers Care Centrifugal Extractor Operator Name Role Phone Alessandra Trevino August Primary Care Provider + Reason for Visit * Reason Onset Date Comments Medication Management 09/11/2016 Encounter Details Date Type Department Care Team (Late st Contact Info) Description 09/11/2016 Telephone [facility] [address] [place] [address] Alessandra Trevino August,N [address] [facility] [address] [place] [address] Medication Management Social History Tobacco Use Types [...] Telephone Encounter - Josie Saunders RMA - 09/11/2016 3:29 PM EDT Spoke with pharmacy * Telephone Encounter - Carmen Altamirano RMA - 09/11/2016 1:19 PM EDT Pharmacy requesting to speak with Josie regarding some meds. Please advise. Thank you documented in this encounter Plan [...] on filedocumented in this encounter Care Teams Centrifugal Extractor Operator Relationship Specialty Start Date End Date Alessandra Trevino August, [address] [facility] [address] [place] [phone] PCP - General Nurse Practitioner-Family 08/29/14 09/20/16 documented as of this encounter
--- OUTSIDE RECORDS SUMMARY | 2024-02-16 14:59 | XMS_ITS | Encounter Summary ---
Author Organization [place] [address] Care Team Providers Care Manager Developmental Name Role Phone Sharee Segovia APRN Primary Care Provider [phone] Reason for Visit * Reason Comments Medication Refill Encounter Details Date Type Department Care Team (Late st Contact Info) Description 09/22/2016 Refill [facility] [address] [place] [address] Joanna Hitchcock MD Medication Refill Social [...] 1 Tab by mouth nightly. 14 Tab 09/22/2016 10/02/2016 RANEXA 500 mg Oral Tablet Sustained Release 12 hr Take 1 Tab by mouth every 12 hours. 28 Tab 09/22/2016 10/02/2016 documented in this encounter [...] Discontinue Reason Start Date End Da te ranolazine (RANEXA) 500 mg Oral Tablet Sustained Release 12 hr Take 1 Tab by mouth every 12 hours. Reorder 06/24/2016 09/22/2016 atorvastatin (LIPITOR) 20 mg Oral Tablet Take 1 Tab by mouth nightly. Reorder 06/24/2016 09/22/2016 documented as of this encounter Care Teams Manager Developmental Relationship Specialty Start Date End Date Sharee Segovia APRN [address] [place] [phone] PCP - General Nurse Practitioner-Family 09/21/16 documented as of this encounter
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
--- OUTSIDE RECORDS SUMMARY | 2024-02-16 15:00 | XMS_ITS | Encounter Summary ---
Author Organization [place] [address] Care Team Providers Care Seismic Interpreter Name Role Phone Alessandra Trevino August AMBULANCE ASSISTANT Primary Care Provider + Sharee Segovia AMBULANCE ASSISTANT Primary Care Provider [phone] Katheryn Allen RN Unavailable Unavailable Khalida Hunter TRACK MOVING MACHINE OPERATOR, COS Unavailable Unavai Charity Newell RN Unavailable Unavail able Isaura Pickens SALESPERSON HANDBAGS Unavailable Unavail able Encounter Details Date Type Department Care Team (Late st Contact Info) Description 12/31/2015 Orders Only [facility] Edg [address] [facility] [address] [place] [address] Elida Martin, AMBULANCE ASSISTANT [address] [place], [place] [id number] Social History Tobacco Use Types Packs/Day Years [...] Procedure Name Priority Date/Time Associated Diagnosis Comments EP LAB RECORDINGS Routine 12/31/2015 1:35 PM EDT documented in this encounter Results * EP LAB RECORDINGS (12/31/2015 1:35 PM EDT) 12/31/2015 1:35 PM EDT us Elida Martin AMBULANCE ASSISTANT CARDIAC CATH ORDERABLES Final Result [facility] [address] [place] [address] documented in this encounter Visit Diagnoses Not on filedocumented in this encounter Care Teams Seismic Interpreter Relationship Specialty Start Date End Date DelmisAlessandra walsh August, AMBULANCE ASSISTANT [address] [place] [id number] PCP - General Nurse Practitioner-Family 08/29/14 09/20/16 Sharee Segovia APRN [address] [place] [phone] PCP - General Nurse Practitioner-Family 09/21/16 01/01/19 Katheryn Allen, RN Health Advocate Registered Nurse 08/04/17 09/14/17 Khalida Hunter LSW, COS Land Leases And Rentals Manager 08/09/17 08/29/17 Charity Last, RN Emergency Department Rn Registered Nurse 07/21/1807/21 Isaura Pickens SALESPERSON HANDBAGS Land Leases And Rentals Manager 09/12/18 9 documented as of this encounter
--- OUTSIDE RECORDS SUMMARY | 2024-02-16 15:00 | XMS_ITS | Encounter Summary ---
Author Organization [place] [address] Care Team Providers Care Coffee Shop Aide Name Role Phone Alessandra Trevino August Primary Care Provider + Reason for Visit * Auth/Cert/Inpt Specialty Diagnoses / Procedures Referred By Arsh t Referred To Contact Critical Care Medicine Diagnoses Chest pain angina Procedures CORONARY ANGIOGRAM / CARDIAC CATHETERIZATION [[id number]] [facility] [facility] [address] Phone: tel: fax: Referral ID Status Reason Start Date Expiration Date Visits Re quested Visits Authorized [id number] 12/29/2015 12/28/2016 1 1 Encounter Details Date Type Department Care Team (Latest Contact Info) Description 12/28/2015 7:38 PM EDT - 01/02/2016 2:56 PM EDT Hospital Encounter [place] [address] Kaushik Perea MD [address] [place] [address] Mayo Omalley, DO [address] [place] [address] Discharge Disposition: Home Health Care Svc Social History Tobacco Use Types Packs/Day Years [...] Sign Reading Time Taken Comments Blood Pressure 130/64 01/02/2016 11:15 AM EDT Pulse 73 01/02/2016 11:15 AM EDT Temperature 37 ??C (98.6 ??F) 01/02/2016 11: 15 AM EDT Respiratory Rate 16 01/02/2016 11:1 5 AM EDT Oxygen Saturation 100% 01/02/2016 11: 15 AM EDT Inhaled Oxygen Concentration - - Weight 104.4 kg (230 lb 3.2 oz) 12/29/2015 6:48 AM EDT Height 174 cm (5' 8.5 ) 12/28/2015 10:4 0 PM EDT Body Mass Index 34.49 12/28/2015 10:40 PM EDT documented in this encounter Discharge Summaries * Ernie Pizano MD - 01/02/2016 11:45 AM EDT #[id number] * Ernie Pizano MD - 01/02/2016 11:45 AM EDT [facility]/[place]/[facility]/[place], [place] NAME: FABY PALM [facility]#: [id number] LOCATION/ROOM: [facility] [address] [place] [address] FACILITY: [facility] DICTATOR: Ernie Pizano DISCHARGE SUMMARY Page 3 DISCHARGE SUMMARY ADMISSION DATE: 12/28/2015 DISCHARGE DATE: OUTPATIENT PHYSICIAN: Dr. Alessandra Trevino DISCHARGE DIAGNOSES: 1. Atrial flutter/atrial fibrillation, status post ablation, on 01/01/2016. 2. Coronary artery disease, status post angio with LAD stenosis, but not felt to be flow significant. 3. Esophageal ulcer, seen previously by GI. 4. Acute renal insufficiency, resolved. 5. Chest pain, status post angio, as above. 6. History of CVA (cerebrovascular accident) with left-sided weakness. 7. Hypertension. 8. Diabetes. CONSULTATIONS: The patient was seen in consultation by Dr. Laila Terrazas of cardiology, Dr. Erickson of gastroenterology, miguel Shepherd. of cardiology. HOSPITAL COURSE: The patient is a 65-year-old white female with a history of chronic diastolic CHF,CVA with residual deficit left-sided weakness, diabetes, depression, who came into the emergency department for evaluation of shortness of breath and palpitations. The patient was found to be in new onset atrial fibrillation and atrial flutter; she was initially given metoprolol and Lasix, placed on IV heparin. She was seen in consultation by cardiology. She went for an echocardiogram on 12/27/2015 which demonstrated ejection fraction of 60% to 65%, evidence of diastolic dysfunction, moderate to severe tricuspid regurgitation. The patient was seen by cardiology and was further evaluated with an angiogram, as she had some chest pain; she was noted to have a 60% to 70% stenosis in the proximal LAD, but was not felt to be flow limiting. She also had a 20% ostial RCA lesion. The patient was then seen by electrophysiology and was felt to need ablation. She was transferred to [facility] for this reason and she went for this on 12/31/2015. The patient remains in sinus rhythm. She was placed on Eliquis by cardiology. The patient was also on a beta laquita, which was decreased somewhat because she had blood pressures on the low side. The patient did have some bump in her creatinine after her angiogram. Her Demadex was initially held. She was given some gentle IV fluids. Her creatinine normalized. She will be placed back on Demadex at a lower dose of 10 mg daily. The patient was seen by physical therapy. She was somewhat weak, overall, on top of her baseline left-sided weakness; rehabilitation or SNF was discussed, but the decision was made for the patient toreturn to her previous living arrangement at the [facility] in [place], [place] with home health and physical therapy in place. DISCHARGE MEDICATIONS: The patient's discharge medications if she goes home today include: Eliquis 5 mg b.i.d., Lipitor 20 mg daily, Lopressor 25 mg b.i.d., Demadex 10 mg daily, Tylenol 650 mg q.4h p.r.n., Abilify 30 mg daily, aspirin 81 mg daily, iron 320 mg b.i.d., Neurontin 100 mg nightly, glipizide 10 mg b.i.d., Protonix 40 mg b.i.d., Risperdal 2 mg nightly, Requip 1.5 mg nightly, Effexor 300mg daily, Elavil 75 mg daily, Atarax 25 mg b.i.d., Prinivil 5 mg daily, and Januvia 100 mg daily. FOLLOWUP: The patient will followup with Dr. Alessandra Trevino in the next week and with the other physicians, as they wish. Ernie Pizano MD By: deloris/djhg Job ID: [id number] Doc ID: [id number] CC: documented in this encounter Discharge Instructions * Discharge Instructions* Lia Hendricks RN - 01/01/2016 7:16 AM EDT [facility] Discharge Instructions - Leg Access Best wishes are extended to you on behalf of [facility] as you are discharged. Because we are most concerned with your health, we suggest you carefully read and take an active role in your overall health and follow these instructions. IF YOU ARE DISCHARGED THE DAY OF YOUR PROCEDURE: 1. Return to your usual diet including, low fat, no added salt. 2. Rest quietly today with the leg used for the procedure kept straight. Limit the use of stairs. Do not drive. 3. Leave the bandage in place over the puncture site until next day, when you remove the bandage, shower, and gently cleanse leg with soap and water. A Band- Aid may be placed over the area if desired. AFTER THE FIRST 24 HOURS FOLLOWING THE PROCEDURE: 1. You may climb stairs. 2. You may drive a car. 3. You may shower, wash gently in your groin area. You may NOT take a bath, swim, or use hot tubs for 5 days following your procedure. 4. You may NOT do strenuous exercise for five days, including golf, bowling, tennis, jogging, sexual relations, etc., unless otherwise instructed by your doctor. 5. You may NOT do heavy lifting, object heavier than 10 pounds, for five days, unless otherwise instructed by your doctor. You may return to your normal activities on . You may return to work on . Do NOT stop taking ASPIRIN and PLAVIX (CLOPIDOGREL) for any reason without first discussing with your physician, due to the risk of heart attack and . WHAT TO WATCH FOR AFTER GOING HOME: 1. You may have some groin discoloration and a small lump, at the puncture site this will graduallygo away. 2. There will be slight pain at the puncture site when you first begin to walk and move about. 3. You may have numbness at the puncture site; this should go away within 4-6 hours. WHAT TO BE CONCERNED ABOUT: 1. Excessive pain in the area around puncture site, in the thigh or calf. 2. Increase in swelling around puncture site or thigh. 3. Loss of color, extreme coldness or numbness of legs or feet. 4. Sign of infection- fever, chills, redness at puncture site. 5. Bleeding from the puncture site - if this happens, immediately lie flat and apply pressure to the bleeding site with your fingers and have someone call 911 to transport you to your local EmergencyRoom. IF ANY OF THE ABOVE OCCURS, GO IMMEDIATELY TO THE HOSPITAL EMERGENCY ROOM. PAIN ASSESSMENT Location: Condition: Current Pain Intensity: Pain Management: IF PAIN INTENSIFIES OR PAIN IS UNRELIEVED WITH MEDICATIONS ORDERED, CALL YOUR PHYSICIAN. MEDICATIONS: *Contact your physician before resuming any medication from home not listed in the discharge medication instruction sheet. PRESCRIPTIONS: FOLLOW-UP TO DOCTOR: ADDITIONAL INSTRUCTIONS: * Smoking is hazardous to your health. Second hand smoke is hazardous to those around you. If you smoke, you can contact your Primary Care Provider for smoking cessation information and classes. * See your physician regularly. * HEART FAILURE: Call your physician if you experience any weight gain of 4 lbs in 2 days, chest discomfort, swelling of feet/ankles, frequent dry hacking cough especially when lying down, dizziness,fainting, passing out, difficulty breathing, leg cramping, decrease in activity tolerance, problemsrelated to current illness/procedure or if symptoms persist or worsen. * Stay active, lower your stress level and monitor your blood pressure. Other Instructions: I HAVE RECEIVED AND UNDERSTAND THE ABOVE INSTRUCTIONS. Please bring this paper with you when you return to your physician. * Attachments The following attachments cannot be sent through Care Everywhere. * METOPROLOL TABLETS (FIJIAN) * ATORVASTATIN TABLETS (FIJIAN) * GROIN SITE CARE (FIJIAN) * APIXABAN ORAL TABLETS (FIJIAN) * ATRIAL FLUTTER (FIJIAN) documented in this encounter Medications at Time [...] times daily. 60 Tab 2 01/02/2016 06/24/2016 pantoprazole (PROTONIX) 40 mg Oral Tablet, Delayed [...] times daily. 60 Tab 2 01/02/2016 06/24/2016 atorvastatin (LIPITOR) 20 mg Oral Tablet Take 1 Tab by mouth nightly. 30 Tab 2 01/02/2016 06/24/2016 torsemide (DEMADEX) 10 mg Oral Tablet Take 1 Tab by mouth daily. 30 Tab 2 01/02/2016 06/24/2016 apixaban (ELIQUIS) 5 mg Oral Tablet Take 1 Tab by mouth 2 times daily. 60 Tab 01/01/2016 06/24/2016 documented in this encounter Discharge Disposition Disposition Code Departure Means Destination Home Health Care [facility] documented in this encounter Progress Notes * Lulu Sun MSW - 01/02/2016 2:56 PM EDT 01/01: Pt to transport [facility], advised arriving by 3:15-3:20p. Confirmed with Alissa at facility. [facility] accepted for SN and PT. * Lia Hendricks RN - 01/02/2016 2:44 PM EDT Patient understood discharge instructions. Informational handouts given to patient on Groin after care and restrictions, and new medicine, Eliquis, Lipitor and Metoprolol including side effects. * Lulu Sun MSW - 01/02/2016 12:29 PM EDT 01/01: SW update. Referral sent to [facility] for SN and PT. Awaiting response. [facility] transport,hopeful for transport around 3:00-3:30p. Discussed with RN and Alissa at [facility]. Alissa advised PT notes are similar to how pt was prior to coming into hospital and can accommodate [facility] for PT and SN. All in agreement. SW following. * Yael Venegas, PT - 01/02/2016 12:01 PM EDT 01/02/16 1159 PT Subjective Note Type Treatment/Progress Patient Room/Unit 4410 PT Subjective Comments #2 Clear for PT per nurse. pt agreeable. Pain Screening PT/OT Patient Currently in Pain Yes Pain Location Groin Pain Orientation Right Additional Comments just had pain meds Cognition Arousal/Alertness Appropriate responses to stimuli Attention Span Appears intact Following Commands Follows one step commands without difficulty Observation Presentation Patient seated edge of bed Observation Water/Wastewater Engineer;Bed Alarm Transfers Sit to Stand Contact guard assist;With verbal cues Stand to Sit Contact guard assist;With verbal cues Gait PT Gait Contact guard assist;With verbal cues Gait Distance (Feet) 100 Feet Assistive Device 2 Wheel walker Pattern Slow chhaya;Shuffle;Foot drag L (narrow PAUL with bilat hips ER) Additional Comments pt with very slow chhaya, tends to slide left foot to advance; amb with narrowBOS with heels close together, externally rotated bilat. Cues for walker proximity and safety AM PAC: How much difficulty does the patient currently have..... turning over in bed? 3 sitting down/standing up from a chair with arms? 3 moving from lying on back to sitting on side of bed? 1 AM PAC: How much help from another person does the patient currently need... moving to and from a bed to a chair? 3 need to walk in hospital room? 3 climbing 3-5 steps with a railing? 2 AM PAC: BASIC MOBILITY SCORING AM PAC Moblity Raw Score 15 AM PAC Mobility CMS 0-100% Functional Percentage 57.7 AM PAC Mobility CMS G Code Modifier CK Balance Standing Balance 2/5 indep, requires both UE support Education Education Role of Therapy;Safety with mobility;Cues for proper technique;Safe and proper technique with transfers;Safe and proper technique with gait pattern;Up with assistance only Patient Safety Patient Safety Patient in bed with needs in reach;Bed alarm activated Assessment Progress Progressing toward goals Plan Treatment/Interventions Continue with current plan of care PT Frequency 3-5x/week Recommendation PT Recommendation Short-term skilled PT Time In / Time Out [id number] IP PT Treatment Minutes 18 * Ernie Pizano MD - 01/02/2016 11:28 AM EDT [facility] Hospitalist Subjective: HPI: Received message from SS that pt and her son desire for the pt to return to the [facility]---PT rec rehab/SNF and pt seems agreeable to that currently--she states her son wants her to goto rehab as well?----I tried to call son, Elias Marquez, but no answer Objective: Visit Vitals ??? BP 130/64 (BP Location: Left arm, Patient Position: Semi Fowlers) ??? Pulse 73 ??? Temp 98.6 ??F (37 ??C) (Oral) ??? Resp 16 ??? Ht 5' 8.5 (1.74 m) ??? Wt 230 lb 3.2 oz (104.4 kg) ??? SpO2 100% ??? No ??? BMI 34.49 kg/m2 I/O last 3 completed shifts: In: 2495.2 [P.O.:1560; I.V.:935.2] Out: 300 [Urine:300] Weight: 230 lb 3.2 oz (104.4 kg) General appearance: NAD--looks better than yest Working with PT HEENT: PERRLA EOM, no JVD, neck supple Cardiovascular: RRR without murmurs, rubs, or gallops Lungs: CTA Bilaterally ,No rales or rhonchi, Abdomen: positive bowel sounds, soft, non-tender to palpation, no hepatosplenomegaly appreciated Extremities: no cyanosis, clubbing or edema, LE warm Neuro: no focal neurological deficits Skin: warm,dry Results: ECG: Results for orders placed during the hospital encounter of 12/28/15 EK EKG 12 LEAD Impression Stationary ECG Study [facility] [place] Interpretive Statements SINUS RHYTHM Conversion to sinus rhythm from flutter LOW QRS VOLTAGE IN PRECORDIAL LEADS ANTEROSEPTAL MYOCARDIAL INFARCTION, PROBABLY OLD Electronically Signed On 12-31-2015 18:13:01 EDT by Ashwin Hoffmann MD Labs: Lab Results Component Value Date WBC 7.4 01/01/2016 HGB 10.8 (L) 01/01/2016 HCT 32.4 (L) 01/01/2016 MCV 90.2 01/01/2016 PLT 126 (L) 01/01/2016 Lab Results Component Value Date NA 143 01/02/2016 K 4.0 01/02/2016 CL 104 01/02/2016 CO2 29 01/02/2016 BUN 17 01/02/2016 CREATININE 1.25 01/02/2016 CALCIUM 9.2 01/02/2016 GFRAFRAM 52 01/02/2016 GFRNONAFRAM 43 01/02/2016 GLU 84 01/02/2016 Lab Results Component Value Date ALKPHOS 182 (H) 09/09/2015 ALT 15 09/09/2015 AST 21 09/09/2015 PROT 7.3 09/09/2015 LABBILI 0.2 09/09/2015 BILIDIR <0.2 09/09/2015 Lab Results Component Value Date LIPASE 24 09/09/2015 No results found for: CKMB, MYOGLOBIN Lab Results Component Value Date INR 1.03 12/28/2015 No results found for: SPECGRAV, UAPROTEIN, BLOODU, NITRITE, LEUKOCYTESUR, WBCUA, RBCUA No results found for: PH, PCO2, PO2, HCO3, TCO2, BASEEXCESS, O2SAT, INSPIREDO2, SPECIMENTYPE Radiology Results: Scanned Rhythm Strips Result Date: 01/01/2016 Ordered by an unspecified provider. Assessment/Plan: ? *Typical atrial flutter (HCC)--s/p ablation yest.?? Off Cardizem gtt per Card??and on oral Lopressor ? Coronary artery disease involving gakona coronary artery of gakona heart without angina pectoris---s/p angio with LAD stenosis but not felt flow significant per Card. ? Esophageal ulcer--hx of Seen by GI? JACK (acute kidney injury) (HCC)-resolved -creatinine improved at 1.25 today ? Chest pain--s/p angio as above ? Hemiparesis affecting left side as late effect of stroke (HCC)? Essential hypertension--Lopressor ? History of CVA (cerebrovascular accident)? DM--glipizide, SS, tradjenta ? Ok [facility] d[facility] or to SNF/rehab if pt/son in agreement Time spent coordinating d/c --31 mins ?? Ernie Pizano MD 01/02/2016 11:29 AM * Lulu Sun MSW - 01/02/2016 10:29 AM EDT 01/01: SW update. Cardiology signed off. Spoke with pt's son and pt, both would like for pt to return to [facility] with home health. Do not want to consult OT per recommendationof one facility, all others declined due to pt doing too well for medicaid to approve SNF stay. Previous CC notes indicate that preference of facility for HH is [facility]. Referral sent. Orderrequested for [facility] for SN and PT from . Also requested DC orders if OK for dc. Will need [facility] transport. SW following. * Laila Terrazas MD - 01/02/2016 8:15 AM EDT CARDIOLOGY Daily Progress Note ? Patient personally seen and examined. ? Attending Physician: Mayo Omalley, DO Admitting Physician: Mayo Omalley, DO ? Admission Date: 12/28/2015 Admission diagnosis: Chest pain [R07.9] ? HPI: Faby Palm 65 y.o. female admitted on 12/28/2015 for Chest pain [R07.9] . Had LHC showed non obstructive narrowing of LAD. S/p Ablation on 12/31/2015. ? Subjective: Has tenderness in right groin at venous sheath area. No chest pain, palpitations, orthopnea, edema. Breathing is good. ? Recent Labs and other pertinent data reviewed. ? Vitals: Vitals: 01/01/16 1504 01/01/16200901/01/16 2339 01/02/16 0609 BP: 128/76 146/70 144/73 127/85 BP Location: Left arm Left arm Left arm Left arm Patient Position: Semi Fowlers Semi Fowlers Semi Fowlers Semi Fowlers Pulse: 67 71 67 71 Resp: Temp: 98.4 ??F (36.9 ??C) 98.6 ??F (37 ??C) 98.6 ??F (37 ??C) 98.5 ??F (36.9 ??C) TempSrc: Oral Oral Oral Oral SpO2: 96% 96% 94% 93% Weight: Height: ? LHC: Left Main? The vessel is moderate in size.? Left Anterior Descending? Proximal LAD 60-70% stenosis.? Left Circumflex? There is mild diffuse disease throughout the vessel.? Right Coronary Artery? High anterior takeoff. Ostial RCA 20%, no dampening noted.? S/p FFR was performed on the lesion in LAD. FFR: 0.92. Non-physiologic ? 12/27/2015 Echo: Left ventricular ejection fraction is in the normal range. ?? Gydjakjb-wq-[id number] tricuspid regurgitation. RVSP estimated to be: 32 mmHg + JVP. ? Tele: Afib CVR ? Physical Exam: GEN: Awake. In no acute distress. HEENT: Sclerae anicteric. No xanthelasmas. EOM's intact. NECK: Supple. Carotids without bruits. No thyromegaly. No JVD LUNGS: clear to auscultation. Chest wall nontender. HEART: RRR no M ABD: soft, nontender, positive bowel sounds EXT: no edema, ?? Right groin: Soft. Slight bruising. No hematoma. No discharge. Red at the fold (not new) Assessment: ? Chest pain S/p LHC 60-70% LAD: ??S/p FFR was performed on the lesion in LAD. FFR: 0.92. Non- physiologic. No PCI ? Aflutter/Afib EP on case on oral beta-laquita. On Eliquis S/p Successful mapping and ablation of CTI flutter on 12/31/2015 Remains In SR [id number] ? HX CVA ? HTN ? JACK Cr back to WNL: 1.27 ? Hx of schizophrenia ? Plan: No new suggestions. Discharge ok from cardiac standpoint. ? Laila Terrazas Cardiology * Anu Aguero, RN - 01/01/2016 8:46 PM EDT Right groin site open to air. Excoriation noted. Cleansed after toileted. Powder applied to skin folds except right groin d/t ablation. Clean guaze applied to groin. Looks better than yesterday. Lessmoist. Ambulated to BR with walker and standby assist. Large amount of incontinent of urine. Pericare delivered. Will continue to monitor. * Yael Venegas, PT - 01/01/2016 4:10 PM EDT 01/01/16 1606 PT Subjective Note Type Treatment/Progress Patient Room/Unit 4410 PT Subjective Comments #2 Clear for PT per nurse. Pt agreeable. States she has decided to go to rehab after talking to her son. Admitting Diagnosis 65yo female admitted 12/28/15 with chest pain. Pt initially presented to [facility] 12/25 with chest pain/tightness radiating to jaw, SOB. Found to have A-flutter- was seen by Cardiology and EP. Transferred to [facility] for LHC and ablation. Had cardiac cath 12/28 and scheduledfor ablation 12/30. Per CC note, pt has fallen at least 4 times in last few weeks. UPDATE 12/31- pt s/p ablation 12/30 Pain Screening PT/OT Patient Currently in Pain Yes Pain Rating 8 Pain Location Groin Pain Orientation Right Additional Comments recently had pain meds per nurse and pt Cognition Arousal/Alertness Appropriate responses to stimuli Following Commands Follows one step commands without difficulty Observation Presentation Patient resting in bed Observation Clay Catheter;Water/Wastewater Engineer Bed Mobility Supine to Sit Mod assist ;With verbal cues Sit to Supine Min assist ;With verbal cues Transfers Sit to Stand Contact guard assist;With verbal cues Stand to Sit Contact guard assist;With verbal cues Additional Comments requires verbal cues for proper hand placement Gait PT Gait Contact guard assist;With verbal cues Gait Distance (Feet) 80 Feet Assistive Device 2 Wheel walker Pattern Slow chhaya;Shuffle;Foot drag L (narrow PAUL with bilat hips ER) Additional Comments pt with very slow chhaya, tends to slide left foot to advance; amb with narrowBOS with heels close together, externally rotated bilat. Cues for walker proximity and safety AM PAC: How much difficulty does the patient currently have..... turning over in bed? 3 sitting down/standing up from a chair with arms? 3 moving from lying on back to sitting on side of bed? 1 AM PAC: How much help from another person does the patient currently need... moving to and from a bed to a chair? 3 need to walk in hospital room? 3 climbing 3-5 steps with a railing? 2 AM PAC: BASIC MOBILITY SCORING AM PAC Moblity Raw Score 15 AM PAC Mobility CMS 0-100% Functional Percentage 57.7 AM PAC Mobility CMS G Code Modifier CK Balance Standing Balance 2/5 indep, requires both UE support Education Education Role of Therapy;Safety with mobility;Safe and proper technique with transfers;Safe and proper technique with gait pattern;Up with assistance only;Discharge planning Patient Safety Patient Safety Patient in bed with needs in reach;Bed alarm activated Assessment Assessment Decreased gait;Decreased functional mobility;Decreased balance;Decreased RightLower Extremity strength;Decreased Left Lower Extremity strength;Decreased activity tolerance Plan Treatment/Interventions Continue with current plan of care PT Frequency 3-5x/week Recommendation PT Recommendation Short-term skilled PT Time In / Time Out [id number] IP PT Treatment Minutes 14 * Lia Hendricks, ROLF - 01/01/2016 3:28 PM EDT Patient resting quietly. Vital signs within normal limits. Patient had complaints of Right Groin pain, PRN pain meds given as ordered. Right groin angiogram site open to air, no hematoma and no bleeding, only some excoriation, powder applied as ordered. Patient educated on fall risks. Call light within reach and bed alarm on for safety. Will continue to monitor. * Charity Butler RN - 01/01/2016 3:03 PM EDT 01/01/16 1501 Assessment Complete Actual Discharge Plan CC 12/31: Physical therapy recommended skilled rehab. Met with patient and she was sleepy and had told me earlier she wanted to go back to living [facility]. However, note from MD today said patient is agreeable to go to rehab. Multiple referrals sent out to SNF. Patient's son agreeable as he said she should do what they recommend but patient can make final decision on this. Await replies from facilities. Patient will need precert. CC/SW to follow. * Ernie Pizano MD - 01/01/2016 12:16 PM EDT [facility] Hospitalist Subjective: HPI: Pt s/p ablation yest. Some pain at groin site She realizes she prob needs rehab after d/c Objective: Visit Vitals ??? BP 140/81 (BP Location: Left arm, Patient Position: Semi Fowlers) ??? Pulse 71 ??? Temp 98 ??F (36.7 ??C) (Oral) ??? Resp 18 ??? Ht 5' 8.5 (1.74 m) ??? Wt 230 lb 3.2 oz (104.4 kg) ??? SpO2 96% ??? No ??? BMI 34.49 kg/m2 I/O last 3 completed shifts: In: 2806.9 [P.O.:1500; I.V.:1306.9] Out: 200 [Urine:200] Weight: 230 lb 3.2 oz (104.4 kg) General appearance: Looks weak overall HEENT: PERRLA EOM, no JVD, neck supple Cardiovascular: RRR without murmurs, rubs, or gallops Lungs: CTA Bilaterally ,No rales or rhonchi, Abdomen: positive bowel sounds, soft, non-tender to palpation, no hepatosplenomegaly appreciated Extremities: right groin area with some ecchymosis but no obvious hematoma Neuro: no focal neurological deficits Skin: warm,dry Results: ECG: Results for orders placed during the hospital encounter of 12/28/15 EK EKG 12 LEAD Impression Stationary ECG Study [facility] [place] Interpretive Statements SINUS RHYTHM Conversion to sinus rhythm from flutter LOW QRS VOLTAGE IN PRECORDIAL LEADS ANTEROSEPTAL MYOCARDIAL INFARCTION, PROBABLY OLD Electronically Signed On 12-31-2015 18:13:01 EDT by Ashwin Hoffmann MD Labs: Lab Results Component Value Date WBC 7.4 01/01/2016 HGB 10.8 (L) 01/01/2016 HCT 32.4 (L) 01/01/2016 MCV 90.2 01/01/2016 PLT 126 (L) 01/01/2016 Lab Results Component Value Date NA 140 01/01/2016 K 4.3 01/01/2016 CL 104 01/01/2016 CO2 27 01/01/2016 BUN 16 01/01/2016 CREATININE 1.27 01/01/2016 CALCIUM 8.7 (L) 01/01/2016 GFRAFRAM 51 01/01/2016 GFRNONAFRAM 42 01/01/2016 GLU 116 (H) 01/01/2016 Lab Results Component Value Date ALKPHOS 182 (H) 09/09/2015 ALT 15 09/09/2015 AST 21 09/09/2015 PROT 7.3 09/09/2015 LABBILI 0.2 09/09/2015 BILIDIR <0.2 09/09/2015 Lab Results Component Value Date LIPASE 24 09/09/2015 No results found for: CKMB, MYOGLOBIN Lab Results Component Value Date INR 1.03 12/28/2015 No results found for: SPECGRAV, UAPROTEIN, BLOODU, NITRITE, LEUKOCYTESUR, WBCUA, RBCUA No results found for: PH, PCO2, PO2, HCO3, TCO2, BASEEXCESS, O2SAT, INSPIREDO2, SPECIMENTYPE Radiology Results: Ek Ekg 12 Lead Result Date: 12/31/2015 NOTICE: Preliminary tracing available for review; Final Interpretation by physician to follow. Stationary ECG Study [facility] [place] Interpretive Statements SINUS RHYTHM Conversion to sinus rhythm from flutter LOW QRS VOLTAGE IN PRECORDIAL LEADS ANTEROSEPTAL MYOCARDIAL INFARCTION, PROBABLY OLD Electronically Signed On 12-31-2015 18:13:01 EDT by Ashwin Hoffmann MD Scanned Rhythm Strips Result Date: 01/01/2016 Ordered by an unspecified provider. Scanned Rhythm Strips Result Date: 01/01/2016 Ordered by an unspecified provider. Scanned Rhythm Strips Result Date: 12/31/2015 Ordered by an unspecified provider. Electrophysiology Procedure Result Date: 12/31/2015 1. Successful mapping and ablation of CTI flutter with CL 260ms with achievement of Bidirectional block Assessment/Plan: ? *Typical atrial flutter (HCC)--s/p ablation yest.?? Off Cardizem gtt per Card??and on oral Lopressor ? Coronary artery disease involving [place] coronary artery of g[place] heart without angina pectoris---s/p angio with LAD stenosis but not felt flow significant per Card. ? Esophageal ulcer--hx of Seen by GI? JACK (acute kidney injury) (HCC)-resolved -creatinine improved at 1.27 today ? Chest pain--s/p angio as above ? Hemiparesis affecting left side as late effect of stroke (HCC)? Essential hypertension--Lopressor ??--decreased yest as BP running on the low side ??--improved today. Titrate up as needed ? History of CVA (cerebrovascular accident)? DM--glipizide, SS, tradjenta ? Pt appears to need rehab--she seems agreeable Ernie Pizano MD 01/01/2016 12:16 PM * Veronica Elida Karlee, [employer] - 01/01/2016 10:25 AM EDT Electrophysiology Daily Progress Note Faby Palm is a 65 y.o. female we are following for AFL. Feeling okay. Groin a little sore. No palpitation, chest pain, SOB Review of Systems: ?? General: negative for - fever, chills ?? Ophthalmic ROS: negative for - eye pain, loss of vision, diplopia ?? ENT ROS: negative for - hearing loss, sore throat, vertigo ?? Respiratory: negative for - cough, sputum ?? Cardiovascular: negative for - PND, orthopnea, dizziness, lightheadedness, syncope ?? Gastrointestinal: negative for - abdominal pain, diarrhea, N/V, melena, hematochezia ?? Hematology: negative for - bleeding, blood clots, bruising ?? Genito-Urinary: negative for - dysuria or incontinence ?? Musculoskeletal: generalized weakness ?? Neurological: negative for - dizziness, headaches, confusion ?? Psychiatric: negative for - anxiety, depression ?? Dermatological: negative for - rash No current facility-administered medications on file prior [...] mouth 2 times daily (with meals). ??? pantoprazole (PROTONIX) 40 mg Oral Tablet, Delayed Release (E.C.) Take 1 Tab by mouth 2 times daily. 60 Tab 1 ??? risperiDONE (RISPERDAL) 1 mg Oral Tablet Take 2 mg by mouth nightly. ??? roPINIRole (REQUIP) 0.5 mg Oral Tablet Take 1.5 mg by mouth nightly. ??? venlafaxine (EFFEXOR-XR) 150 mg Oral Capsule, Sust. Release 24 hr Take 300 mg by mouth nightly. ??? amitriptyline (ELAVIL) 75 mg Oral Tablet Take 75 mg by mouth nightly. ??? hydrOXYzine (ATARAX) 50 mg Oral Tablet Take 25 mg by mouth 2 times daily. ??? lisinopril (PRINIVIL;ZESTRIL) 10 mg Oral Tablet Take 5 mg by mouth daily. ??? sitaGLIPtin (JANUVIA) 100 mg Oral Tablet Take 100 mg by mouth daily. ??? torsemide (DEMADEX) 10 mg Oral Tablet Take 10 mg by mouth 2 times daily. Current Medications: ??? amitriptyline 75 mg Oral Nightly ??? apixaban 5 mg Oral BID ??? ARIPiprazole 30 mg Oral Daily ??? aspirin 81 mg Oral Daily ??? atorvastatin 20 mg Oral Nightly ??? ferrous sulfate 325 mg Oral BID WM ??? gabapentin 100 mg Oral Nightly ??? glipiZIDE 10 mg Oral BID WM ??? insulin aspart 1-10 Units Subcutaneous QID WM ??? linagliptin 5 mg Oral Daily ??? lisinopril 5 mg Oral Daily ??? metoprolol 25 mg Oral BID ??? miconazole Topical 2 times per day ??? pantoprazole 40 mg Oral BID ??? risperiDONE 2 mg Oral Nightly ??? roPINIRole 1.5 mg Oral Nightly ??? sodium chloride 0.9% 10 mL Intravenous 3 times per day ??? venlafaxine 300 mg Oral Nightly CBC: Lab Results Component Value Date WBC 7.4 01/01/2016 RBC 3.59 (L) 01/01/2016 HGB 10.8 (L) 01/01/2016 HCT 32.4 (L) 01/01/2016 MCV 90.2 01/01/2016 MCHC 33.4 01/01/2016 RDW 14.3 01/01/2016 PLT 126 (L) 01/01/2016 MPV 9.3 01/01/2016 BMP: Lab Results Component Value Date NA 140 01/01/2016 K 4.3 01/01/2016 CL 104 01/01/2016 CO2 27 01/01/2016 BUN 16 01/01/2016 CREATININE 1.27 01/01/2016 CALCIUM 8.7 (L) 01/01/2016 GFRAFRAM 51 01/01/2016 GFRNONAFRAM 42 01/01/2016 GLU 116 (H) 01/01/2016 Visit Vitals ??? BP 121/63 (BP Location: Left arm, Patient Position: Lying right side) ??? Pulse 69 ??? Temp 98.4 ??F (36.9 ??C) (Oral) ??? Resp 18 ??? Ht 5' 8.5 (1.74 m) ??? Wt 230 lb 3.2 oz (104.4 kg) ??? SpO2 99% ??? No ??? BMI 34.49 kg/m2 Physical Examination: ?? Constitutional: Oriented. No distress ?? Head: Atraumatic ?? Mouth/throat: Oropharynx is clear and moist ?? Neck: Neck supple. No JVD present ?? Cardiovascular: Normal rate, regular rhythm, S1&S2 ?? Pulmonary/Chest: Bilateral respiratory sounds clear. No wheezes, no Rhonchi ?? Abdominal: Soft. Bowel sounds present. No distention, No tenderness. ?? Extremities: extremities normal, no cyanosis, no edema ?? Right Groin site without hematoma, ecchymosis or tenderness. ?? Neurological: Alert and oriented. No gross deficit ?? Hematological: No abnormal bruising ?? Skin: Warm and dry. No rash noted ?? Psychiatric: Normal mood, affect, and behavior Telemetry/EKG: SR Assessment: Active Hospital Problems Diagnosis ??? *Typical atrial flutter (HCC) ??? S/P ablation of atrial flutter ??? Coronary artery disease involving [place] coronary artery of [place] heart without angina pectoris ??? Ulcer of esophagus without bleeding ??? JACK (acute kidney injury) (HCC) ??? Chest pain ??? Hemiparesis affecting left side as late effect of stroke (HCC) ??? Essential hypertension ??? History of CVA (cerebrovascular accident) Plan: 1. Atrial flutter- likely CTI dependent ?? --> S/P CTI flutter ablation 12/31/15 --> [id number] score: 6. She is on Eliquis. AFL ablation. No H/O AF. She will need AC x 4 weeks. 2. CVA in the past ?? --> patient reports that this was related to hypertensive emergency ? Patient may be D/C from EP standpoint. Thank you for allowing us to participate in the care of Faby Palm. EP will sign off. Call forfurther questions or problems. Follow up scheduled in office ?? Elida Martin APRN I have participated in the care of this patient and I have reviewed and agree with all pertinent clinical information above including history, exam, and recommendations. Cosigned by Mita Tee MD at 01/01/2016 4:54 PM EDT Associated attestation - Mita Tee MD - 01/01/2016 4:54 PM EDT Status post flutter ablation postop day one Maintaining normal sinus rhythm Plan: Oral anticoagulation for 4 weeks Okay to discharge when okay with others We'll sign off * Laila Terrazas MD - 01/01/2016 7:15 AM EDT CARDIOLOGY Daily Progress Note ? Patient personally seen and examined. ? Attending Physician: Mayo Omalley, DO Admitting Physician: Mayo Omalley, DO ? Admission Date: 12/28/2015 Admission diagnosis: Chest pain [R07.9] ? HPI: Faby Palm 65 y.o. female admitted on 12/28/2015 for Chest pain [R07.9] . Had LHC showed non obstructive narrowing of LAD. S/p Ablation on 12/31/2015. ? Subjective: No chest pain, palpitations, orthopnea, edema. Breathing is good. ? Recent Labs and other pertinent data reviewed. ? Vitals: Vitals: 12/31/15 1900 12/31/15 1938 12/31/15 2344 01/01/16 0552 BP: 124/84 127/73 117/62 125/63 BP Location: Left arm Left arm Left arm Patient Position: Lying left side Supine Semi Fowlers Lying left side Pulse: 66 72 66 71 Resp: 18 18 18 18 Temp: 98.2 ??F (36.8 ??C) 98.1 ??F (36.7 ??C) TempSrc: Oral Oral SpO2: 99% 97% 94% Weight: Height: ? LHC: Left Main? The vessel is moderate in size.? Left Anterior Descending? Proximal LAD 60-70% stenosis.? Left Circumflex? There is mild diffuse disease throughout the vessel.? Right Coronary Artery? High anterior takeoff. Ostial RCA 20%, no dampening noted.? S/p FFR was performed on the lesion in LAD. FFR: 0.92. Non-physiologic ? 12/27/2015 Echo: Left ventricular ejection fraction is in the normal range. ?? [id number] tricuspid regurgitation. RVSP estimated to be: 32 mmHg + JVP. ? Tele: Afib CVR ? Physical Exam: GEN: Sleepy and drowsy. In no acute distress. HEENT: Sclerae anicteric. No xanthelasmas. EOM's intact. NECK: Supple. Carotids without bruits. No thyromegaly. No JVD LUNGS: clear to auscultation. Chest wall nontender. HEART: RRR no M ABD: soft, nontender, positive bowel sounds EXT: no edema, ? Assessment: ? Chest pain S/p LHC 60-70% LAD: ??S/p FFR was performed on the lesion in LAD. FFR: 0.92. Non- physiologic. No PCI ? Aflutter/Afib EP on case on oral beta-laquita. On Eliquis S/p Successful mapping and ablation of CTI flutter on 12/31/2015 In SR [id number] 5 ? HX CVA ? HTN ? JACK Cr back to WNL: 1.27 ? Hx of schizophrenia ? Plan: No new suggestions. Discharge ok from cardiac standpoint after seen and evaluated by EP today. ? [facility] Terrazas Cardiology * Charity Perry RN - 01/01/2016 6:18 AM EDT Pt resting this shift with VSS and no complaints. Right groin site dressing removed this AM. No bleeding or hematoma noted. Excoriation to groin folds, abd folds, and ananya area noted. Wound care protocol in place. Pt independent in turns and educated on importance of turning. Verbalized understanding. Call light within reach and pt encouraged to call with any needs. Will continue to monitor. * Roslyn Hinkle RN - 12/31/2015 8:51 PM EDT Ambulated patient to bathroom after ordered bedrest period. Patient tolerated well, groin remains stable with no bleeding or hematoma. Will monitor. * Anu Aguero RN - 12/31/2015 6:10 PM EDT Pt returned to unit about 1745. Right groin dressing dry and intact. No bleeding, hematoma and/or ecchymosis. Pt instructed on activity restrictions. Pt restless, all over the bed. Encouraged and reminded multiple times of importance of lying still and keeping head on pillow and right leg extended.Pt turned to side and lifted head several times. When told to lay still pt says I can't . Will continue to monitor. * Joanna High RN - 12/31/2015 5:06 PM EDT Report to Heather Platt RN. Pt UTD on POC. Groin site remains benign. Pt denies discomfort or pain. No s/s of acute distress noted. On teletracking for transport. * Anu Aguero RN - 12/31/2015 12:59 PM EDT BS 89 this afternoon. Message sent to Dr. Pizano. Pt NPO for Ablation scheduled for 1600 this evening. Waiting for new orders or return call. * Ernie Pizano MD - 12/31/2015 10:51 AM EDT [facility] Subjective: HPI: Pt anxious for ablation which is planned for later today. Hungry and wants to eat Objective: Visit Vitals ??? BP 97/51 (Patient Position: Sitting) ??? Pulse 76 ??? Temp 98.1 ??F (36.7 ??C) (Oral) ??? Resp 18 ??? Ht 5' 8.5 (1.74 m) ??? Wt 230 lb 3.2 oz (104.4 kg) ??? SpO2 98% ??? No ??? BMI 34.49 kg/m2 I/O last 3 completed shifts: In: 2990.5 [P.O.:1320; I.V.:1670.5] Out: 550 [Urine:550] Weight: 230 lb 3.2 oz (104.4 kg) General appearance: NAD A&OX3 HEENT: PERRLA EOM, no JVD, neck supple Cardiovascular: irreg irreg Lungs: CTA Bilaterally ,No rales or rhonchi, Abdomen: positive bowel sounds, soft, non-tender to palpation, no hepatosplenomegaly appreciated Extremities: no cyanosis, clubbing or edema, LE warm Neuro: no focal neurological deficits Skin: warm,dry Results: ECG: Results for orders placed during the hospital encounter of 12/26/15 EK EKG 12 LEAD Impression Stationary ECG Study [facility] Interpretive Statements SINUS RHYTHM WITH FREQUENT ECTOPIC PREMATURE COMPLEXES LOW QRS VOLTAGE IN PRECORDIAL LEADS [QRS DEFLECTION < 1.0 mV IN CHEST LEADS] POSSIBLE ANTERIOR MYOCARDIAL INFARCTION [30 ms Q WAVE IN V3/V4, OR R < 0.2 mV IN V4], OF INDETERMINATE AGE INFERIOR MYOCARDIAL INFARCTION [40+ ms Q WAVE AND/OR ST/T ABNORMALITY IN II/aVF], OF INDETERMINATE AGE NO CHANGE Follow up tracing suggested Electronically Signed On 12-27-2015 16:01:01 EDT by Kamari Goss MD Labs: Lab Results Component Value Date WBC 7.6 12/31/2015 HGB 11.6 (L) 12/31/2015 HCT 35.4 (L) 12/31/2015 MCV 91.1 12/31/2015 PLT 145 12/31/2015 Lab Results Component Value Date NA 142 12/31/2015 K 4.0 12/31/2015 CL 102 12/31/2015 CO2 25 12/31/2015 BUN 20 12/31/2015 CREATININE 1.55 (H) 12/31/2015 CALCIUM 8.9 12/31/2015 GFRAFRAM 41 12/31/2015 GFRNONAFRAM 34 12/31/2015 GLU 113 (H) 12/31/2015 Lab Results Component Value Date ALKPHOS 182 (H) 09/09/2015 ALT 15 09/09/2015 AST 21 09/09/2015 PROT 7.3 09/09/2015 LABBILI 0.2 09/09/2015 BILIDIR <0.2 09/09/2015 Lab Results Component Value Date LIPASE 24 09/09/2015 No results found for: CKMB, MYOGLOBIN Lab Results Component Value Date INR 1.03 12/28/2015 No results found for: SPECGRAV, UAPROTEIN, BLOODU, NITRITE, LEUKOCYTESUR, WBCUA, RBCUA No results found for: PH, PCO2, PO2, HCO3, TCO2, BASEEXCESS, O2SAT, INSPIREDO2, SPECIMENTYPE Radiology Results: Scanned Rhythm Strips Result Date: 12/31/2015 Ordered by an unspecified provider. Scanned Rhythm Strips Result Date: 12/31/2015 Ordered by an unspecified provider. Scanned Rhythm Strips Result Date: 12/30/2015 Ordered by an unspecified provider. Assessment/Plan: ? *Typical atrial flutter (HCC)--to go for ablation today.?? On Cardizem gtt per Card ? Coronary artery disease involving [place] coronary artery of [place] heart without angina pectoris---s/p angio with LAD stenosis but not felt flow significant per Card. ? Esophageal ulcer--hx of Seen by GI? JACK (acute kidney injury) (HCC)--creatinine up to 1.66 yest--improved some at 1.55 today --may be due to contrast she received with the angio. Demedex on hold and giving some IVFs? Chest pain--s/p angio as above ? Hemiparesis affecting left side as late effect of stroke (HCC)? Essential hypertension--Lopressor ??---will decrease as BP running on the low side ? History of CVA (cerebrovascular accident)? DM--glipizide, SS, tradjenta ?? Ablation today Follow renal fx--BMP Ernie Pizano MD 12/31/2015 10:51 AM * Stewart Robert [facility] - 12/31/2015 7:57 AM EDT S: Faby Palm is a(n) 65 y.o. female with diagnosis of A-FIB (CHADS2=5). Allergies: Compazine [prochlorperazine edisylate]; [place]; and [place]win [pentazocine lactate] Pharmacy managing heparin therapy. Bleeding signs/symptoms noted: none. O: Most Recent Labs: Recent Labs 12/28/15214923/16 0620 12/30/15 0620 WBC 7.5 7.2 8.6 HGB 12.5 12.3 11.9* HCT 36.9 36.4 36.0 PLT 142* 145 160 Platelets are being monitored at least every 48 hours while the patient is receiving unfractionatedheparin therapy. Recent Labs 12/26/15 1907 12/28/15 0651 12/28/15 2150 12/29/15 0458 12/30/15 0710 12/31/15 0512 INR 1.02 -- 1.08 -- 1.03 -- -- -- HEPARINLEVEL -- < > 0.92* < > 0.32 0.31 0.30 0.35 PTT 28.2 -- -- -- -- -- -- -- < > = values in this interval not displayed. Recent Labs 12/26/15 1314 12/26/15 1525 12/26/15 1907 12/28/15 2150 12/29/15 0620 12/30/15 0620 TROPT <0.01 <0.01 <0.01 -- -- -- -- BUN 41* -- 41* < > 16 15 19 CREATININE 1.96* -- 2.04* < > 1.15 1.19 1.66* < > = values in this interval not displayed. Weight: 230 lb 3.2 oz (104.4 kg) A/P: A-FIB Physician orders and progress notes reviewed. CTI flutter ablation today, will need NOAC for 4 weeks post ablation. Hgb/Hct are stable. Anti-Xa in range this morning. Will continue current dose of 1050 units/hr. Will follow pertinent lab parameters in am and adjust for goal (anti-Xa 0.3 - 0.7 unit/mL). ThanksStewart PharmD * Laila Terrazas MD - 12/31/2015 7:53 AM EDT CARDIOLOGY Daily Progress Note ? Patient personally seen and examined. ? Attending Physician: Mayo Omalley, Admitting Physician: Mayo Omalley DO ?? Admission Date: 12/28/2015 Admission diagnosis: Chest pain [R07.9] ? HPI: Faby Palm 65 y.o. female admitted on 12/28/2015 for Chest pain [R07.9] . Had LHC showed non obstructive narrowing of LAD. ? Subjective: Denies any chest pain. Breathing is good. ? ROS: Denies chest pain, SOB/orthopnea/PND, cough, palpitations, dizziness. Eager to get EP procedure done. ?? Recent Labs and other pertinent data reviewed. ?? Vitals: LHC: Left Main?? The vessel is moderate in size.?? Left Anterior Descending?? Proximal LAD 60-70% stenosis.?? Left Circumflex?? There is mild diffuse disease throughout the vessel.?? Right Coronary Artery?? High anterior takeoff. Ostial RCA 20%, no dampening noted.?? S/p FFR was performed on the lesion in LAD. FFR: 0.92. Non-physiologic ?? 12/27/2015 Echo: Left ventricular ejection fraction is in the normal range. ?? Lzhpwzvb-ns-jkhvee tricuspid regurgitation. RVSP estimated to be: 32 mmHg + JVP. ? Tele: Afib CVR ?? Physical Exam: GEN: Alert, little Drowsy. In no acute distress. HEENT: Sclerae anicteric. No xanthelasmas. EOM's intact. NECK: Supple. Carotids without bruits. No thyromegaly. No JVD LUNGS: clear to auscultation. Chest wall nontender. HEART: Irregular no M ABD: soft, nontender, positive bowel sounds EXT: no edema, ?? Assessment: ?? Chest pain S/p LHC 60-70% LAD: ??S/p FFR was performed on the lesion in LAD. FFR: 0.92. Non- physiologic. No PCI ? Aflutter/Afib EP on case Planning CTI flutter ablation On Diltiazem drip rate control. Also on oral beta-laquita. Rate controlled. TSH normal On heparin infusion [id number] 5 ? HX CVA ? HTN ? JACK Cr 1.66 ? Hx of schizophrenia ? Plan: Ablation later today per EP. Hemodynamically stable. ?? [facility]ail[facility] Terrazas Cardiology * Patricia Mathew, RN - 12/31/2015 1:53 AM EDT Vital signs stable. cardizem drip infusing as ordered. Monitor remains atrial flutter. Right groin folds excoriated no bleeding or hematoma at cath site. Up to bathroom with assistance and tolerated fair. Bed alarm in place for safety. Offers no complaints. * Charity Butler, ROLF - 12/30/2015 3:22 PM EDT 12/30/15 5515 Assessment Complete Actual Discharge Plan 12/29 CC: Called and spoke with nurse at [facility] regarding patient returning there when medically stable. Physical therapy recommended skilled rehab. Noted patient hashad some falls prior to admit. They report patient can return with home health physical therapy through [facility] who they often use. Patient has assistance with getting to meals, bathing and cleaning. Spoke with patient and she reports she doesn't want to go to a facility for rehab. She only wants to return to living center. Called patient's son to inquire if they make decisions for patientand he reported they do not and usually let patient and living center decide what to do for her. Note left for MD asking for home health orders. CC to follow. * Ernie Pizano MD - 12/30/2015 11:46 AM EDT [facility] Subjective: HPI: Pt without complaints for me. BP running low and Cardizem gtt to be stopped per Cards. Going for ablation tomm per EP. Objective: Visit Vitals ??? BP (!) 82/56 (BP Location: Left arm, Patient Position: Semi Fowlers) ??? Pulse 66 ??? Temp 97.7 ??F (36.5 ??C) (Oral) ??? Resp 16 ??? Ht 5' 8.5 (1.74 m) ??? Wt 230 lb 3.2 oz (104.4 kg) ??? SpO2 95% ??? No ??? BMI 34.49 kg/m2 I/O last 3 completed shifts: In: 801.8 [P.O.:355; I.V.:446.8] Out: 50 [Urine:50] Weight: 230 lb 3.2 oz (104.4 kg) General appearance: NAD A&OX3 HEENT: PERRLA EOM, no JVD, neck supple Cardiovascular: irreg irreg Lungs: CTA Bilaterally ,No rales or rhonchi, Abdomen: positive bowel sounds, soft, non-tender to palpation, no hepatosplenomegaly appreciated Extremities: no cyanosis, clubbing or edema, LE warm Neuro: no focal neurological deficits Skin: warm,dry Results: ECG: Results for orders placed during the hospital encounter of 12/26/15 EK EKG 12 LEAD Impression Stationary ECG Study [facility] Interpretive Statements SINUS RHYTHM WITH FREQUENT ECTOPIC PREMATURE COMPLEXES LOW QRS VOLTAGE IN PRECORDIAL LEADS [QRS DEFLECTION < 1.0 mV IN CHEST LEADS] POSSIBLE ANTERIOR MYOCARDIAL INFARCTION [30 ms Q WAVE IN V3/V4, OR R < 0.2 mV IN V4], OF INDETERMINATE AGE INFERIOR MYOCARDIAL INFARCTION [40+ ms Q WAVE AND/OR ST/T ABNORMALITY IN II/aVF], OF INDETERMINATE AGE NO CHANGE Follow up tracing suggested Electronically Signed On 12-27-2015 16:01:01 EDT by Kamari Goss MD Labs: Lab Results Component Value Date WBC 8.6 12/30/2015 HGB 11.9 (L) 12/30/2015 HCT 36.0 12/30/2015 MCV 88.6 12/30/2015 PLT 160 12/30/2015 Lab Results Component Value Date NA 141 12/30/2015 K 4.0 12/30/2015 CL 101 12/30/2015 CO2 28 12/30/2015 BUN 19 12/30/2015 CREATININE 1.66 (H) 12/30/2015 CALCIUM 8.9 12/30/2015 GFRAFRAM 38 12/30/2015 GFRNONAFRAM 31 12/30/2015 GLU 126 (H) 12/30/2015 Lab Results Component Value Date ALKPHOS 182 (H) 09/09/2015 ALT 15 09/09/2015 AST 21 09/09/2015 PROT 7.3 09/09/2015 LABBILI 0.2 09/09/2015 BILIDIR <0.2 09/09/2015 Lab Results Component Value Date LIPASE 24 09/09/2015 No results found for: CKMB, MYOGLOBIN Lab Results Component Value Date INR 1.03 12/28/2015 No results found for: SPECGRAV, UAPROTEIN, BLOODU, NITRITE, LEUKOCYTESUR, WBCUA, RBCUA No results found for: PH, PCO2, PO2, HCO3, TCO2, BASEEXCESS, O2SAT, INSPIREDO2, SPECIMENTYPE Radiology Results: Scanned Rhythm Strips Result Date: 12/29/2015 Ordered by an unspecified provider. Assessment/Plan: @ Active Hospital Problems Diagnosis ??? *Typical atrial flutter (HCC)--to go for ablation tomm. ??? Coronary artery disease involving [place] coronary artery of [place] heart without angina pectoris---s/p angio yest with LAD stenosis but not felt flow significant per Card. ??? Esophageal ulcer--hx of Seen by GI yest ??? JACK (acute kidney injury) (HCC)--creatinine up to 1.66 today--may be due to contrast she received yest. Will give IVFs, hold Demedex, and recheck BMP ??? Chest pain--s/p angio as above ??? Hemiparesis affecting left side as late effect of stroke (HCC) ??? Essential hypertension--Lopressor ??? History of CVA (cerebrovascular accident) DM--glipizide, SS, tradjenta Holding Demedex Give IVFs today Recheck BMP Stop Nitropaste as BP running low Ablation planned for tomm Ernie Pizano MD 12/30/2015 11:46 AM * Yael Venegas, PT - 12/30/2015 11:34 AM EDT 12/30/15 1121 PT Subjective Note Type Evaluation Patient Room/Unit 4410 PT Subjective Comments #1 Order: IP consult to Physical therapy per PT Subjective Comments #2 Clear for PT per nurse. Pt agreeable. Has been up to bathroom with nursing assist. Discharge Information Evaluation to serve as discharge summary if no further treatment provided before the facility discharge Admitting Diagnosis 65yo female admitted 12/28/15 with chest pain. Pt initially presented to [facility] ED 12/25 with chest pain/tightness radiating to jaw, SOB. Found to have A-flutter- was seen by Cardiology and EP. Transferred to [facility] for LHC and ablation. Had cardiac cath 12/28 and scheduledfor ablation 12/30. Per CC note, pt has fallen at least 4 times in last few weeks. Past Med Hx COPD, DDD, CHF, DM, HTN, suicide attempt, stroke 2009- left side affected, RLS, ankle sx, joint replacement, lung sx Pain Screening Additional Comments states her right groin is sore from procedure Cognition Overall Cognitive Status Needs continued assessment Arousal/Alertness Appropriate responses to stimuli Orientation Level Oriented to person;Oriented to place;Oriented to time Following Commands Follows one step commands without difficulty Home Living/Prior Function Type of Home Facility ([facility]) Home Equipment 2 wheel walker Level of Assistance Ambulatory in home;Needs assistance with ADLs;Needs assistance with homemaking Lives With (has 2 roommates per pt) Additional Comments Pt reports she gets around independently with walker, only needs assist for bathing. States facility provides meals and does housework. Pt reports several falls recently. Observation Presentation Patient resting in bed Observation PICC line;Water/Wastewater Engineer;Bed Alarm UE Assessment Additional Comments general weakness RUE Additional Comments general weakness LE Assessment Additional Comments general weakness- grossly 4/5 except hip flexion 3+/5 Additional Comments general weakness- grossly 4/5 except hip flexion 3+/5 Bed Mobility Supine to Sit Stand by assist;Head of bed slightly elevated;With bed rails Sit to Supine Stand by assist Transfers Sit to Stand Contact guard assist;With verbal cues Stand to Sit Contact guard assist;With verbal cues Additional Comments requires verbal cues for proper hand placement Gait PT Gait Contact guard assist;With verbal cues Gait Distance (Feet) 50 Feet Assistive Device 2 Wheel walker Pattern Slow chhaya;Shuffle;Foot drag L (narrow PAUL with bilat hips ER) Additional Comments pt with very slow chhaya, tends to slide left foot to advance; amb with narrowBOS with heels close together, externally rotated bilat. Cues for walker proximity and safety - to keep walker on floor when turning around. AM PAC: How much difficulty does the patient currently have..... turning over in bed? 3 sitting down/standing up from a chair with arms? 3 moving from lying on back to sitting on side of bed? 3 AM PAC: How much help from another person does the patient currently need... moving to and from a bed to a chair? 3 need to walk in hospital room? 3 climbing 3-5 steps with a railing? 2 AM PAC: BASIC MOBILITY SCORING AM PAC Moblity Raw Score 17 AM PAC Mobility CMS 0-100% Functional Percentage 50.57 AM PAC Mobility CMS G Code Modifier CK Balance Standing Balance 2/5 indep, requires both UE support Education Education Role of Therapy;Safety with mobility;Cues for proper technique;Safe and proper technique with transfers;Safe and proper technique with gait pattern;Up with assistance only Patient Safety Patient Safety Patient in bed with needs in reach;Bed alarm activated Assessment Assessment Decreased gait;Decreased functional mobility;Decreased balance;Decreased RightLower Extremity strength;Decreased Left Lower Extremity strength;Decreased activity tolerance Prognosis Good;With continued PT s/p acute discharge Rationale for Skilled Therapy Fall Risk;Not safe with independent transfers;Not safe ambulating independently Goals PT GOALS (Yes/No) Yes Add Goals Pt Will Go Supine To Sit Modified independent Pt Will Go Sit to Supine Modified independent Pt will perform Sit to Stand Modified independent Pt Will Ambulate With 2 wheel walker;101-150 feet;With stand by assist Goal Formulation With patient Time for Goal Achievement 7 days Plan Treatment/Interventions Gait training;Bed mobility;Balance training;Functional transfer training;LEstrengthening/ROM;Increase activity tolerance PT Frequency 3-5x/week Recommendation PT Recommendation Short-term skilled PT Time In / Time Out [id number] IP PT Evaluation Minutes 15 IP PT Treatment Minutes 12 12/30/15 1121 PT Subjective Note Type Evaluation Patient Room/Unit 4410 PT Subjective Comments #1 Order: IP consult to Physical therapy per PT Subjective Comments #2 Clear for PT per nurse. Pt agreeable. Has been up to bathroom with nursing assist. Discharge Information Evaluation to serve as discharge summary if no further treatment provided before the facility discharge Admitting Diagnosis 65yo female admitted 12/28/15 with chest pain. Pt initially presented to [facility] ED 12/25 with chest pain/tightness radiating to jaw, SOB. Found to have A-flutter- was seen by Cardiology and EP. Transferred to [facility] for LHC and ablation. Had cardiac cath 12/28 and scheduledfor ablation 12/30. Per CC note, pt has fallen at least 4 times in last few weeks. Past Med Hx COPD, DDD, CHF, DM, HTN, suicide attempt, stroke 2009- left side affected, RLS, ankle sx, joint replacement, lung sx Pain Screening Additional Comments states her right groin is sore from procedure Cognition Overall Cognitive Status Needs continued assessment Arousal/Alertness Appropriate responses to stimuli Orientation Level Oriented to person;Oriented to place;Oriented to time Following Commands Follows one step commands without difficulty Home Living/Prior Function Type of Home Facility ([facility]) Home Equipment 2 wheel walker Level of Assistance Ambulatory in home;Needs assistance with ADLs;Needs assistance with homemaking Lives With (has 2 roommates per pt) Additional Comments Pt reports she gets around independently with walker, only needs assist for bathing. States facility provides meals and does housework. Pt reports several falls recently. Observation Presentation Patient resting in bed Observation PICC line;Water/Wastewater Engineer;Bed Alarm UE Assessment Additional Comments general weakness RUE Additional Comments general weakness LE Assessment Additional Comments general weakness- grossly 4/5 except hip flexion 3+/5 Additional Comments general weakness- grossly 4/5 except hip flexion 3+/5 Bed Mobility Supine to Sit Stand by assist;Head of bed slightly elevated;With bed rails Sit to Supine Stand by assist Transfers Sit to Stand Contact guard assist;With verbal cues Stand to Sit Contact guard assist;With verbal cues Additional Comments requires verbal cues for proper hand placement Gait PT Gait Contact guard assist;With verbal cues Gait Distance (Feet) 50 Feet Assistive Device 2 Wheel walker Pattern Slow chhaya;Shuffle;Foot drag L (narrow PAUL with bilat hips ER) Additional Comments pt with very slow chhaya, tends to slide left foot to advance; amb with narrowBOS with heels close together, externally rotated bilat. Cues for walker proximity and safety - to keep walker on floor when turning around. AM PAC: How much difficulty does the patient currently have..... turning over in bed? 3 sitting down/standing up from a chair with arms? 3 moving from lying on back to sitting on side of bed? 3 AM PAC: How much help from another person does the patient currently need... moving to and from a bed to a chair? 3 need to walk in hospital room? 3 climbing 3-5 steps with a railing? 2 AM PAC: BASIC MOBILITY SCORING AM PAC Moblity Raw Score 17 AM PAC Mobility CMS 0-100% Functional Percentage 50.57 AM PAC Mobility CMS G Code Modifier CK Balance Standing Balance 2/5 indep, requires both UE support Education Education Role of Therapy;Safety with mobility;Cues for proper technique;Safe and proper technique with transfers;Safe and proper technique with gait pattern;Up with assistance only Patient Safety Patient Safety Patient in bed with needs in reach;Bed alarm activated Assessment Assessment Decreased gait;Decreased functional mobility;Decreased balance;Decreased RightLower Extremity strength;Decreased Left Lower Extremity strength;Decreased activity tolerance Prognosis Good;With continued PT s/p acute discharge Rationale for Skilled Therapy Fall Risk;Not safe with independent transfers;Not safe ambulating independently Goals PT GOALS (Yes/No) Yes Add Goals Pt Will Go Supine To Sit Modified independent Pt Will Go Sit to Supine Modified independent Pt will perform Sit to Stand Modified independent Pt Will Ambulate With 2 wheel walker;101-150 feet;With stand by assist Goal Formulation With patient Time for Goal Achievement 7 days Plan Treatment/Interventions Gait training;Bed mobility;Balance training;Functional transfer training;LEstrengthening/ROM;Increase activity tolerance PT Frequency 3-5x/week Recommendation PT Recommendation Short-term skilled PT Time In / Time Out [id number] IP PT Evaluation Minutes 15 IP PT Treatment Minutes 12 * Mita Tee MD - 12/30/2015 9:50 AM EDT Electrophysiology Daily Progress Note Faby Palm is a 65 y.o. female we are following for AFL. Feeling okay. No chest pain, palpitation or SOB Review of Systems: ?? General: negative for - fever, chills ?? Ophthalmic ROS: negative for - eye pain, loss of vision, diplopia ?? ENT ROS: negative for - hearing loss, sore throat, vertigo ?? Respiratory: negative for - cough, sputum ?? Cardiovascular: negative for - PND, orthopnea, dizziness, lightheadedness, syncope ?? Gastrointestinal: negative for - abdominal pain, diarrhea, N/V, melena, hematochezia ?? Hematology: negative for - bleeding, blood clots, bruising ?? Genito-Urinary: negative for - dysuria or incontinence ?? Musculoskeletal: no muscle pain/joint pain ?? Neurological: negative for - dizziness, headaches, confusion ?? Psychiatric: negative for - anxiety, depression ?? Dermatological: negative for - rash No current facility-administered medications on file prior [...] mouth 2 times daily (with meals). ??? pantoprazole (PROTONIX) 40 mg Oral Tablet, Delayed Release (E.C.) Take 1 Tab by mouth 2 times daily. 60 Tab 1 ??? risperiDONE (RISPERDAL) 1 mg Oral Tablet Take 2 mg by mouth nightly. ??? roPINIRole (REQUIP) 0.5 mg Oral Tablet Take 1.5 mg by mouth nightly. ??? venlafaxine (EFFEXOR-XR) 150 mg Oral Capsule, Sust. Release 24 hr Take 300 mg by mouth nightly. ??? amitriptyline (ELAVIL) 75 mg Oral Tablet Take 75 mg by mouth nightly. ??? hydrOXYzine (ATARAX) 50 mg Oral Tablet Take 25 mg by mouth 2 times daily. ??? lisinopril (PRINIVIL;ZESTRIL) 10 mg Oral Tablet Take 5 mg by mouth daily. ??? sitaGLIPtin (JANUVIA) 100 mg Oral Tablet Take 100 mg by mouth daily. ??? torsemide (DEMADEX) 10 mg Oral Tablet Take 10 mg by mouth 2 times daily. Current Medications: ??? amitriptyline 75 mg Oral Nightly ??? ARIPiprazole 30 mg Oral Daily ??? aspirin 81 mg Oral Daily ??? atorvastatin 20 mg Oral Nightly ??? ferrous sulfate 325 mg Oral BID WM ??? gabapentin 100 mg Oral Nightly ??? glipiZIDE 10 mg Oral BID WM ??? insulin aspart 1-10 Units Subcutaneous QID WM ??? linagliptin 5 mg Oral Daily ??? lisinopril 5 mg Oral Daily ??? metoprolol 50 mg Oral BID ??? miconazole Topical 2 times per day ??? nitroGLYCERIN 1 Inch Topical 4 times per day ??? pantoprazole 40 mg Oral BID ??? risperiDONE 2 mg Oral Nightly ??? roPINIRole 1.5 mg Oral Nightly ??? sodium chloride 0.9% 10 mL Intravenous 3 times per day ??? torsemide 10 mg Oral BID ??? venlafaxine 300 mg Oral Nightly CBC: Lab Results Component Value Date WBC 8.6 12/30/2015 RBC 4.07 12/30/2015 HGB 11.9 (L) 12/30/2015 HCT 36.0 12/30/2015 MCV 88.6 12/30/2015 MCHC 32.9 12/30/2015 RDW 14.5 12/30/2015 PLT 160 12/30/2015 MPV 9.6 12/30/2015 Visit Vitals ??? BP 104/65 (BP Location: Left arm, Patient Position: Semi Fowlers) ??? Pulse 72 ??? Temp 97.9 ??F (36.6 ??C) (Oral) ??? Resp 16 ??? Ht 5' 8.5 (1.74 m) ??? Wt 230 lb 3.2 oz (104.4 kg) ??? SpO2 93% ??? No ??? BMI 34.49 kg/m2 Physical Examination: ?? Constitutional: Oriented. No distress ?? Head: Atraumatic ?? Mouth/throat: Oropharynx is clear and moist ?? Neck: Neck supple. No JVD present ?? Cardiovascular: Normal rate, irregular rhythm, S1&S2 ?? Pulmonary/Chest: Bilateral respiratory sounds clear. No wheezes, no Rhonchi ?? Abdominal: Soft. Bowel sounds present. No distention, No tenderness. ?? Extremities: extremities normal, no cyanosis, no edema ?? Neurological: Alert and oriented. No gross deficit ?? Hematological: No abnormal bruising ?? Skin: Warm and dry. No rash noted ?? Psychiatric: Normal mood, affect, and behavior Telemetry/EKG: atrial flutter, rate controlled on IV Cardizem Assessment: Active Hospital Problems Diagnosis ??? *Typical atrial flutter (HCC) ??? Coronary artery disease involving [place] coronary artery of [place] heart without angina pectoris ??? Esophageal ulcer ??? JACK (acute kidney injury) (HCC) ??? Chest pain ??? Hemiparesis affecting left side as late effect of stroke (HCC) ??? Essential hypertension ??? History of CVA (cerebrovascular accident) Plan: 1. Atrial flutter- likely CTI dependent ?? --> CTI flutter ablation tomorrow --> Continue UFH --> Will need NOAC for 4 weeks post flutter ablation ?? --> on Lopressor po and Cardizem gtt 2. CVA in the past ?? --> patient reports that this was related to hypertensive emergency ? Further recommendations per Dr. Nay Martin APRN I have participated in the care of this patient and I have reviewed and agree with all pertinent clinical information above including history, exam, and recommendations. MD note Persistent atrial flutter: --> CTI flutter ablation procedure tomorrow The customary risks and benefits of the procedure were explained to the patient and they wish to proceed. * Laila Terrazas MD - 12/30/2015 8:58 AM EDT CARDIOLOGY Daily Progress Note Patient personally seen and examined. Attending Physician: Mayo Omalley DO Admitting Physician: Mayo Omalley DO Admission Date: 12/28/2015 Admission diagnosis: Chest pain [R07.9] HPI: Faby Palm 65 y.o. female admitted on 12/28/2015 for Chest pain [R07.9] . Subjective: Denies any chest pain. Breathing is good. ROS: Denies chest pain, SOB/orthopnea/PND, cough, palpitations, dizziness Recent Labs and other pertinent data reviewed. Vitals: Vitals: 12/30/15 0412 12/30/15 0559 12/30/15 0609 12/30/15 0810 BP: 96/58 95/66 104/65 BP Location: Left arm Left arm Left arm Patient Position: Semi Fowlers Semi Fowlers Semi Fowlers Pulse: 73 77 72 Resp: Temp: 98.2 ??F (36.8 ??C) 97.9 ??F (36.6 ??C) TempSrc: Oral SpO2: 90% 93% 93% Weight: Height: Body mass index is 34.49 kg/(m^2). Intake/Output Summary (Last 24 hours) at 12/30/15 0858 Last data filed at 12/30/15 0824 Gross per 24 hour Intake 801.77 ml Output 50 ml Net 751.77 ml I/O last 3 completed shifts: In: 801.8 [P.O.:355; I.V.:446.8] Out: 50 [Urine:50] LHC: Left Main The vessel is moderate in size. Left Anterior Descending Proximal LAD 60-70% stenosis. Left Circumflex There is mild diffuse disease throughout the vessel. Right Coronary Artery High anterior takeoff. Ostial RCA 20%, no dampening noted. S/p FFR was performed on the lesion in LAD. FFR: 0.92. Non-physiologic 12/27/2015 Echo: Left ventricular ejection fraction is in the normal range. ?? [id number] tricuspid regurgitation. RVSP estimated to be: 32 mmHg + JVP. ?? Tele: Afib CVR Physical Exam: GEN: Alert, Drowsy. In no acute distress. HEENT: Sclerae anicteric. No xanthelasmas. EOM's intact. NECK: Supple. Carotids without bruits. No thyromegaly. No JVD LUNGS: clear to auscultation. Chest wall nontender. HEART: Irregular ABD: soft, nontender, positive bowel sounds EXT: no edema, Assessment: Chest pain S/p LHC 60-70% LAD: ??S/p FFR was performed on the lesion in LAD. FFR: 0.92. Non- physiologic. No PCI Aflutter/Afib EP on case Recommended CTI flutter ablation On Diltiazem drip rate control. Also on oral beta-laquita. Rate controlled. TSH normal On heparin infusion [id number] ?? HX CVA ? HTN ?? JACK Cr 1.66 ?? Hx of schizophrenia Plan: Will defer Arrhythmia management to EP. Add statin. Laila Terrazas Cardiology * Anu Aguero RN - 12/30/2015 8:46 AM EDT Return call from Dr. Tee and said Ablation will be tomorrow also said he would swing by and see her later today. * Anu Aguero RN - 12/30/2015 8:30 AM EDT Message sent to Dr. Tee regarding possible ablation or not. Not ordered but pt thinks she is having one today. Waiting for response. * Anu Aguero RN - 12/30/2015 8:27 AM EDT Right groin dressing removed. No complications. Denies pain/discomfort. Up with assist of walker and staff member. Pt NPO d/t she thinks she may be having an ablation today. Will contact Dr. Tee tofind out. Will continue to monitor. * Stewart Robert RPH - 12/30/2015 8:20 AM EDT S: Faby Palm is a(n) 65 y.o. female with diagnosis of A-FIB (CHADS2=5). Allergies: Compazine [prochlorperazine edisylate]; [place]; and Talwin [pentazocine lactate] Pharmacy managing heparin therapy. Bleeding signs/symptoms noted: none. O: Most Recent Labs: Recent Labs 12/28/15214912/29/15 0620 12/30/15 0620 WBC 7.5 7.2 8.6 HGB 12.5 12.3 11.9* HCT 36.9 36.4 36.0 PLT 142* 145 160 Platelets are being monitored at least every 48 hours while the patient is receiving unfractionatedheparin therapy. Recent Labs 12/26/15 1907 12/28/15 0651 12/28/15214912/29/15 0458 12/30/15 0710 INR 1.02 -- 1.08 -- 1.03 -- -- HEPARINLEVEL -- < > 0.92* < > 0.32 0.31 0.30 PTT 28.2 -- -- -- -- -- -- < > = values in this interval not displayed. Recent Labs 12/26/15 1314 12/26/15 1525 12/26/15 1907 12/28/15214912/29/15 0620 12/30/15 0620 TROPT <0.01 <0.01 <0.01 -- -- -- -- BUN 41* -- 41* < > 16 15 19 CREATININE 1.96* -- 2.04* < > 1.15 1.19 1.66* < > = values in this interval not displayed. Weight: 230 lb 3.2 oz (104.4 kg) A/P: A-FIB Physician orders and progress notes reviewed. Hgb/Hct are stable. Anti-Xa therapeutic this morning, but last 3 levels have been on the low end ofdesired range. Will increase slightly to 1050 units/hour. Due to level still being in range and to avoid unnecessary lab draws, will wait to follow pertinent lab parameters in am and adjust for goal (anti-Xa 0.3 - 0.7 unit/mL). Thanks, Stewart Robert PharmD * Hafsa Carrion, RN - 12/30/2015 6:39 AM EDT Patient slept through most of the night. Patient denies any pain this am, was medicated once duringthe shift for complaints of right groin tenderness. Right groin site unremarkable. Patient states that she is going to have her ablation today, no orders on chart currently. Patient kept NPO until clarification of procedure is made. Bed alarm maintained during the shift for safety. * Hafsa Carrion RN - 12/29/2015 10:39 PM EDT Patient is noted to be easily agitated with any staff interaction. With medication administration patient refused to provide her name and , stating I have already said it and I am not going to again! Informed patient that I had not administrated any medication to her and needed her to verify her name and . Patient complied and again stated that she was not going comply in the future. Asked patient why she was so annoyed with staff, patient states that she does not like this hospital, stating she likes the other [facility] better . Asked patient why, patient states she got woke up for blood test at 4 am, and the staff here does not know what they are doing. They keep disturbing me, informed patient that it necessary to check on her frequently, patient states that if we wake herup again, she would not be nice or complaint with the staff. Informed patient that I needed to monitor her BP every to hours due to her medication, and in an effort to not wake her I would leave the BP cuff, patient states I better not wake her up. Will continue to monitor. * Be Brown MD - 12/29/2015 6:35 PM EDT Images from the original note were not included. Asked about anticoagulation. Full consult note reviewed per Dr. Erickson 2days ago and he felt anticoagulation with concomitant ppi therapy was ok. Please call with any other questions or concerns. Be Brown MD 12/29/2015 6:44 PM [facility] * Araseli Mcguire, ROLF - 12/29/2015 4:07 PM EDT Patient continuously non-compliant with post-op angio bedrest orders. continuously finding patient with right leg bent at knee, ankles crossed, laying on left side, sitting up in bed. Patient will lie back down, apologize, then continues to do it again. Explained consequences of what could happen with doing this, patient verbalized understanding. Will continue to monitor. * Cristina Lobo, PT - 12/29/2015 4:01 PM EDT 12/29/15 1555 PT Subjective Note Type Chart Review;Evaluation Attempt Patient Room/Unit 4410 PT Subjective Comments #1 CR attempted PT silvana PT Subjective Comments #2 pt on bedrest following cardiac cath Therapy delay reason Medically not stable (pt on bedrest following cardiac procedure) Admitting Diagnosis 65 y/o F transferred to edg from [facility] on 12/27 for cardiac cath Past Med Hx COPD, DD, CHF, DM, HTN, suicide attempt, stoke 2009 left side affected, RLS * Araseli Mcguire, ROLF - 12/29/2015 1:03 PM EDT ACT 151 at 1040. Patient's HR staying 140's - 180's in Afib/Aflutter. Notified Dr. Kim. Orders for Cardizem gtt. Will continue to monitor. * Gregor Kim MD - 12/29/2015 12:34 PM EDT Patient was off the floor and could not be examined. * Araseli Mcguire RN - 12/29/2015 11:32 AM EDT Open, raw skin noted in right groin fold. Was able to see once sheath/dressing was removed. * Araseli Mcguire RN - 12/29/2015 10:20 AM EDT Patient alert and oriented. Right groin sheath intact. Dressing clean and dry. Denies pain. VSS. Patient verbalized understanding of post-angio instructions. Skin assessment performed with Toshia Kauffman RN. Moisture/redness noted in ananya-area, abdominal folds and under bilateral breasts. Blanchable redness on buttocks. Old dry stool noted on buttocks as well. Call light in reach. Bed in low position wi th alarm on. Will continue to monitor. * Pablo Montague, [facility] - 12/29/2015 10:19 AM EDT S: Faby Palm is a(n) 65 y.o. female with diagnosis of A-FIB(CHADS2=5) . Allergies: Compazine [prochlorperazine edisylate]; [place]; and Talwin [pentazocine lactate] Pharmacy managing heparin therapy. Bleeding signs/symptoms noted. Platelets are being monitored at least every 48 hours while the patient is receiving unfractionatedheparin therapy. O: Most Recent Labs: Recent Labs 12/28/15 0405 12/28/15 2150 12/29/15 0620 WBC 6.8 7.5 7.2 HGB 12.0 12.5 12.3 HCT 35.8 36.9 36.4 PLT 144 142* 145 Recent Labs 12/26/15 1907 12/28/15 0651 12/28/15 1454 12/28/15214912/29/15 0458 INR 1.02 -- 1.08 -- 1.03 -- HEPARINLEVEL -- < > 0.92* 0.61 0.32 0.31 PTT 28.2 -- -- -- -- -- < > = values in this interval not displayed. Recent Labs 12/26/15 1314 12/26/15 1525 12/26/15 1907 12/28/15 0405 12/28/15 2150 12/29/15 0620 TROPT <0.01 <0.01 <0.01 -- -- -- -- BUN 41* -- 41* < > 24* 16 15 CREATININE 1.96* -- 2.04* < > 1.16 1.15 1.19 < > = values in this interval not displayed. Weight: 230 lb 3.2 oz (104.4 kg) A/P: Physician orders and progress notes reviewed. GI consulted---hx of PUD. EP consulted---planning CTIflutter ablation early this week with transition to NOAC. Hgb/Hct are stable. Will resume heparin at previously therapeutic rate of 950 units/hr at 2200 tonight with no bolus. Will follow pertinent lab parameters in am and adjust for goal (anti-Xa 0.3 - 0.7unit/mL). Pablo Montague RPH * Maria Ghosh RN - 12/29/2015 10:17 AM EDT 12/29/15 1014 Assessment Complete Actual Discharge Plan 12/28: CC update. CC reviewed chart. CC received consult patient is from [facility] .Per chart, patient agreeable to angiogram today, transferred to PICU forrecovery. Per chart, [facility], uses walker for ambulation.CC requesting PT eval when medcailly stable to asst with safe DC plan. CC will cont to follow. * Estrellita Harris RN - 12/29/2015 9:30 AM EDT Pt sent to hoisting laborer this am, now being transferred to PICU, report called and belongings packed andtaken to pt room 4410. * Melisa Menon RN - 12/29/2015 2:04 AM EDT Patient transferred from [facility] for angio in the AM and possible ablation later in the week. Alert and oriented x3, standby assist to bathroom with walker. Pt refused skin assessment. Oriented to room, call light. VSS, A flutter on monitor. * Faby Schuler [facility] - 12/28/2015 11:01 PM EDT Pharmacy Note - heparin S: Faby Palm is a 65 y.o. female with recent chest pain, A flutter, angio scheduled for tomorrow, transferred from [facility] today. Allergies: Compazine [prochlorperazine edisylate]; [place]; and Talwin[pentazocine lactate] Pharmacy managing heparin therapy. Bleeding signs/symptoms noted: none. O: Most Recent Labs: Recent Labs 12/27/15 0529 12/28/15 0405 12/28/15 2150 WBC 6.5 6.8 7.5 HGB 12.1 12.0 12.5 HCT 36.3 35.8 36.9 PLT 154 144 142* Recent Labs 12/26/15 1907 12/28/15 0651 12/28/15 1454 12/28/15 2150 INR 1.02 -- 1.08 -- 1.03 HEPARINLEVEL -- < > 0.92* 0.61 0.32 PTT 28.2 -- -- -- -- < > = values in this interval not displayed. Recent Labs 12/26/15 1314 12/26/15 1525 12/26/15 1907 12/27/15 0958 12/28/15 0405 12/28/15 2150 TROPT <0.01 <0.01 <0.01 -- -- -- -- BUN 41* -- 41* < > 37* 24* 16 CREATININE 1.96* -- 2.04* < > 1.59* 1.16 1.15 < > = values in this interval not displayed. Weight: 232 lb 8 oz (105.5 kg) A/P: CP / AMI / ACS Physician orders and progress notes reviewed. Hgb/Hct are stable. Will continue current dose of 950 units/hr . Will follow pertinent lab parameters in am and adjust for goal (anti-Xa 0.3 - 0.7 unit/mL). Thank you, Faby Schuler [facility] documented in this encounter H&P Notes * Mita Tee MD - 12/31/2015 4:29 PM EDT PHYSICIAN IMMEDIATE PRE-PROCEDURE UPDATE H&P and SEDATION ASSESSMENT Risks, benefits, potential complications and alternatives have been discussed with patient and/or patient's legal authorized service representative. HISTORY AND PHYSICAL Inpatient: H&P is completed and reviewed; progress notes reflect changes in patient condition. SEDATION ASSESSMENT The patient's immediate pre-procedure physical assessment indicates the patient is a suitable candidate for and agrees to the planned sedation: Moderate sedation Patient has been NPO for a sufficient period of time to allow for gastric emptying. Date of last liquid consumption: 12/31/15 Time of last liquid consumption: 1200 Date of last solid food consumption: 12/30/15 Time of last solid food consumption: 2100 Comment: Patient has no previous adverse experience to anesthesia. Comment: Vital Signs: Temp: 98.4 ??F (36.9 ??C) Pulse: 92 Resp: 23 BP: 129/70 SpO2: 98 % Comment: Patient's pain has been assessed and based on patient report consideration has been given as to howit might alter the patient's sedation plan. Comment: Patient's airway has been assessed and consideration has been given as to how it might alter the patient's response to sedation. Mallampati Score: III (soft palate, base of uvula visible) Cath PCI Bleeding Risk Score Psychology Assistant; <=25 mild, 26-65 mod, >65 high: 65 Height: 5' 8.5 (174 cm) Weight: 230 lb 3.2 oz (104.4 kg) BMI (Calculated): 34.9 Comment: Allergies Allergen Reactions ??? Compazine [Prochlorperazine Edisylate] ??? [place] ??? Talwin [Pentazocine Lactate] Source Note - Mita Tee MD - 12/27/2015 5:36 PM EDT ADMISSION: 12/27/2015 PATIENT: Faby Palm [id number] PCP: Alessandra Trevino August, I would like to thank Campbell Huston MD for requesting me to see your patient, Faby Palm in consultation for AFL. Ms. Faby Palm is a 65 y.o. 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 ANgiogram tomorrow Past Medical History Past Medical History Diagnosis Date ??? CHF (congestive heart failure) (HCC) ??? COPD (chronic obstructive pulmonary disease) (HCC) ??? DDD (degenerative disc disease) ??? Diabetes mellitus (HCC) ??? Hypertension ??? RLS (restless legs syndrome) ??? Stroke (HCC) 2010 left side affected ??? Suicide attempt (HCC) ??? Yeast infection recurrent Medication No current facility-administered medications on file prior [...] Take 30 mg by mouth daily. ??? ferrous sulfate 325 mg (65 mg iron) Oral Tablet Take 1 Tab by mouth 2 times daily (with meals).60 Tab 5 ??? glipiZIDE (GLUCOTROL) 10 mg Oral Tablet Take 10 mg by mouth 2 times daily (with meals). ??? hydrOXYzine (ATARAX) 50 mg Oral Tablet Take 25 mg by mouth 2 times daily. ??? lisinopril (PRINIVIL;ZESTRIL) 10 mg Oral Tablet Take 5 mg by mouth daily. ??? pantoprazole (PROTONIX) 40 mg Oral Tablet, Delayed Release (E.C.) Take 1 Tab by mouth 2 times daily. 60 Tab 1 ??? risperiDONE (RISPERDAL) 1 mg Oral Tablet Take 2 mg by mouth nightly. ??? roPINIRole (REQUIP) 0.5 mg Oral Tablet Take 1.5 mg by mouth nightly. ??? sitaGLIPtin (JANUVIA) 100 mg Oral Tablet Take 100 mg by mouth daily. ??? venlafaxine (EFFEXOR-XR) 150 mg Oral Capsule, Sust. Release 24 hr Take 300 mg by mouth nightly. Scheduled Meds: ??? ARIPiprazole 30 mg Oral Daily ??? aspirin 81 mg Oral Daily ??? ferrous sulfate 325 mg Oral BID WM ??? gabapentin 100 mg Oral Nightly ??? insulin aspart 1-10 Units Subcutaneous QID WM ??? linagliptin 5 mg Oral Daily ??? metoprolol 25 mg Oral BID ??? nitroGLYCERIN 1 Inch Topical 4 times per day ??? pantoprazole 40 mg Oral BID ??? risperiDONE 2 mg Oral Nightly ??? roPINIRole 1.5 mg Oral Nightly ??? sodium chloride 0.9% 10 mL Intravenous 3 times per day ??? venlafaxine 300 mg Oral Nightly Continuous Infusions: ??? sodium chloride 100 mL/hr at 12/27/15 1440 ??? heparin (porcine) 1,350 Units/hr (12/27/15 1438) Past Surgical History Past Surgical History Procedure Laterality Date ??? Lung surgery ??? Tonsillectomy ??? Breast surgery ??? Orthopedic surgery ??? Joint replacement ??? Ankle surgery ??? Upper gastrointestinal endoscopy N/A 04/03/2015 ESOPHAGOGASTRODUODENOSCOPY WITH BIOPSY AND BRUSHING; Surgeon: Be Brown MD; Location: [facility] ENDOSCOPY; Service: Endoscopy Allergy Allergies Allergen Reactions ??? Compazine [Prochlorperazine Edisylate] ??? [place] ??? Talwin [Pentazocine Lactate] Family History Family History Problem Relation Age of Onset ??? Cancer Mother larcandace cancer Social History Social History Substance Use Topics ??? Smoking status: Never Smoker ??? Smokeless tobacco: Never Used ??? Alcohol use No Review of Systems palpitations, tachycardia, all other systems have been reviewed and are negative. Objective: Visit Vitals ??? BP (!) 147/95 (BP Location: Left arm, Patient Position: Semi Fowlers) ??? Pulse 90 ??? Temp 97.3 ??F (36.3 ??C) (Oral) ??? Resp 18 ??? Ht 5' 8.5 (1.74 m) ??? Wt 224 lb (101.6 kg) ??? SpO2 100% ??? No ??? BMI 33.56 kg/m2 General: alert, appears stated age and cooperative Oropharynx: normal or rolling of tongue Neck: nontender Lung: rhonchi bibasilar Heart: regularly irregular rhythm Abdomen: soft, non-tender. Bowel sounds normal. No masses, no organomegaly Extremities: extremities normal, atraumatic, no cyanosis or edema Pulses: 2+ and symmetric Skin: Warm and dry. no hyperpigmentation, vitiligo, or suspicious lesions Neuro: left sided weakness Diagnostic tests Lab Results Component Value Date WBC 6.5 12/27/2015 HGB 12.1 12/27/2015 HCT 36.3 12/27/2015 PLT 154 12/27/2015 Lab Results Component Value Date CREATININE 1.59 (H) 12/27/2015 BUN 37 (H) 12/27/2015 NA 139 12/27/2015 K 3.9 12/27/2015 CL 100 12/27/2015 CO2 29 12/27/2015 Lab Results Component Value Date CHOLESTEROL 177 09/09/2015 TRIG 375 (H) 09/09/2015 HDL 35 (L) 09/09/2015 LDLCALC 67 09/09/2015 Lab Results Component Value Date ALT 15 09/09/2015 AST 21 09/09/2015 Lab Results Component Value Date TSH 3.090 12/27/2015 Lab Results Component Value Date INR 1.02 12/26/2015 No results found for: CKTOTAL, CKMB, CKMBINDEX, TROPONINI Chest X-Ray: ECG:AFL. Telemetry: AFL Echocardiogram: EF 55%- dilated RV moderate to severe TR Ischemic Evaluation: The most recent cardiovascular imaging studies availabe in [facility] EMR were reviewed at time of consultation Assessment: Plan: 1. Atrial flutter- likely CTI dependent Discussed Rx options with the patient in detail- I recommended a CTI flutter ablation early next week- The customary risks and benefits of the procedure were explained to the patient and they wish to proceed. --> Continue UFH --> Will need NOAC for 4 weeks post flutter ablation --> Increase Lopressor for rate control --> please transfer to [place] over weekend/Wednesday under hospitalist service for planned procedure on Wednesday 2. CVA in the past --> patient reports that this was related to hypertensive emergency * Mayo Omalley DO - 12/29/2015 7:30 AM EDT [facility] History and Physical Name: Faby Palm ADDRESS: [address] [place] [address] : 1950 AGE: 65 y.o. Admitting Physician: Mayo Omalley DO Date of Admit: 12/28/2015 Chief Complaint: aflutter History of Present Illness:65 yo WF admitted for evaluation of chest pain and palpitations, she wasfound the have A flutter 2:1. Placed on IV heparin and BB, seen by cardiology and EP. She had mild JACK on CKD with improved with IVF. Transfer from [facility] for ablation and C. Prescriptions Prior to Admission Medication Sig Dispense Refill Last Dose ??? acetaminophen 325 mg Oral Tab Take 650 mg by mouth every 4 hours as needed for Pain. 12/27/2015at 0900 ??? ARIPiprazole (ABILIFY) 10 mg Oral Tablet Take 30 mg by mouth daily. 12/28/2015 at 0900 ??? aspirin 81 mg Oral Tablet, Delayed Release (E.C.) Take 81 mg by mouth daily. 12/28/2015 at 0900 ??? ferrous sulfate 325 mg (65 mg iron) Oral Tablet Take 1 Tab by mouth 2 times daily (with meals).60 Tab 5 12/28/2015 at 1730 ??? gabapentin (NEURONTIN) 100 mg Oral Capsule Take 100 mg by mouth nightly. 12/28/2015 at 2100 ??? glipiZIDE (GLUCOTROL) 10 mg Oral Tablet Take 10 mg by mouth 2 times daily (with meals). Unknownat Unknown time ??? pantoprazole (PROTONIX) 40 mg Oral Tablet, Delayed Release (E.C.) Take 1 Tab by mouth 2 times daily. 60 Tab 1 12/28/2015 at 0830 ??? risperiDONE (RISPERDAL) 1 mg Oral Tablet Take 2 mg by mouth nightly. 12/27/2015 at 2100 ??? roPINIRole (REQUIP) 0.5 mg Oral Tablet Take 1.5 mg by mouth nightly. 12/27/2015 at 2100 ??? venlafaxine (EFFEXOR-XR) 150 mg Oral Capsule, Sust. Release 24 hr Take 300 mg by mouth nightly.12/27/2015 at 2100 ??? amitriptyline (ELAVIL) 75 mg Oral Tablet Take 75 mg by mouth nightly. Not Taking at Unknown time ??? hydrOXYzine (ATARAX) 50 mg Oral Tablet Take 25 mg by mouth 2 times daily. Not Taking at Unknowntime ??? lisinopril (PRINIVIL;ZESTRIL) 10 mg Oral Tablet Take 5 mg by mouth daily. Not Taking at Unknowntime ??? sitaGLIPtin (JANUVIA) 100 mg Oral Tablet Take 100 mg by mouth daily. Not Taking at Unknown time ??? torsemide (DEMADEX) 10 mg Oral Tablet Take 10 mg by mouth 2 times daily. Not Taking at Unknown time Allergies Allergen Reactions ??? Compazine [Prochlorperazine Edisylate] ??? [place] ??? Talwin [Pentazocine Lactate] Past Medical History Diagnosis Date ??? CHF (congestive heart failure) (HCC) ??? COPD (chronic obstructive pulmonary disease) (HCC) ??? DDD (degenerative disc disease) ??? Diabetes mellitus (HCC) ??? Hypertension ??? RLS (restless legs syndrome) ??? Stroke (HCC) 2010 left side affected ??? Suicide attempt (HCC) ??? Yeast infection recurrent Past Surgical History Procedure Laterality Date ??? Lung surgery ??? Tonsillectomy ??? Breast surgery ??? Orthopedic surgery ??? Joint replacement ??? Ankle surgery ??? Upper gastrointestinal endoscopy N/A 04/03/2015 ESOPHAGOGASTRODUODENOSCOPY WITH BIOPSY AND BRUSHING; Surgeon: Be Brown MD; Location: [facility]; Service: Endoscopy Social History Social History ??? Marital status: Spouse name: N/A ??? Number of children: N/A ??? Years of education: N/A Social History Main Topics ??? Smoking status: Never Smoker ??? Smokeless tobacco: Never Used ??? Alcohol use No ??? Drug use: No ??? Sexual activity: Not Asked Other Topics Concern ??? None Social History Narrative Family History Problem Relation Age of Onset ??? Cancer Mother larcandace cancer Review of Systems: The listed systems were reviewed and reveal the following in addition to any already discussed in the HPI: ?? Constitutional: No fever, chills, or weight loss ?? Eyes: No visual disturbance ?? HENT: No headache, hearing loss, epistaxis, sore throat, or hoarseness ?? Lungs: No SOB, cough, hemoptysis, or pleuritic chest pain ?? Cardiovascular: No chest pain, PND or orthopnea ?? Endocrine: No polyuria, [...] Temp src Pulse Resp SpO2 Height Weight 12/29/15 0648 - - - - - - - 230 lb 3.2 oz (104.4 kg) 12/29/15 0557 (!) 149/93 98.1 ??F (36.7 ??C) Oral 108 18 94 % - - 12/28/15 2309 (!) 149/94 97.7 ??F (36.5 ??C) Oral 134 20 97 % - - 12/28/150 - - - - - - 5' 8.5 (1.74 m) 232 lb 8 oz (105.5 kg) 12/28/151956 154/81 97.7 ??F (36.5 ??C) Oral 108 20 100 % - 232 lb 8 oz (105.5 kg) Weight: 230 lb 3.2 oz (104.4 kg) ?? General: NAD ?? Head: Atraumatic, normocephalic ?? Eyes: PEERL, No purulent drainage, non-icteric sclera ?? ENT: Op clear, Nasal clear, MMM ?? Neck: Supple, No JVD ?? Lungs: CTA b/l, no wheeze, rales, or rhonchi ?? Cardiac: RRR, no MGR ?? Abdomen: + Bowel sounds, soft, non-tender ?? Musculoskeletal/Ext: Pulses 1-2+ bilaterally in upper and lower extremities. ?? Neurological: residual weakness at baseline, AAOx3, No focal deficits ?? Skin: Warm, no rashes, dry Labs: CBC: Lab Results Component Value Date WBC 7.2 12/29/2015 RBC 4.11 12/29/2015 HGB 12.3 12/29/2015 HCT 36.4 12/29/2015 MCV 88.6 12/29/2015 MCHC 33.8 12/29/2015 RDW 13.6 12/29/2015 MPV 9.5 12/29/2015 BMP: Lab Results Component Value Date NA 140 12/29/2015 K 3.9 12/29/2015 CL 103 12/29/2015 CO2 26 12/29/2015 BUN 15 12/29/2015 CREATININE 1.19 12/29/2015 CALCIUM 9.1 12/29/2015 GFRAFRAM 55 12/29/2015 GFRNONAFRAM 46 12/29/2015 GLU 136 (H) 12/29/2015 Hepatic: Lab Results Component Value Date ALKPHOS 182 (H) 09/09/2015 ALT 15 09/09/2015 AST 21 09/09/2015 PROT 7.3 09/09/2015 LABBILI 0.2 09/09/2015 BILIDIR <0.2 09/09/2015 Lab Results Component Value Date LIPASE 24 09/09/2015 U/A:No results found for: SPECGRAV, UAPROTEIN, BLOODU, NITRITE, LEUKOCYTESUR, WBCUA, RBCUA Coagulation: Lab Results Component Value Date INR 1.03 12/28/2015 Cardiac markers: No results found for: CKMB, MYOGLOBIN ABGs:No results found for: PH, PCO2, PO2, HCO3, TCO2, BASEEXCESS, O2SAT, INSPIREDO2, SPECIMENTYPE Radiology: No results found. Results for orders placed during the hospital encounter of 12/26/15 EK EKG 12 LEAD Impression Stationary ECG Study [facility] Interpretive Statements SINUS RHYTHM WITH FREQUENT ECTOPIC PREMATURE COMPLEXES LOW QRS VOLTAGE IN PRECORDIAL LEADS [QRS DEFLECTION < 1.0 mV IN CHEST LEADS] POSSIBLE ANTERIOR MYOCARDIAL INFARCTION [30 ms Q WAVE IN V3/V4, OR R < 0.2 mV IN V4], OF INDETERMINATE AGE INFERIOR MYOCARDIAL INFARCTION [40+ ms Q WAVE AND/OR ST/T ABNORMALITY IN II/aVF], OF INDETERMINATE AGE NO CHANGE Follow up tracing suggested Electronically Signed On 12-27-2015 16:01:01 EDT by Kamari [place] MD Assessment/Plan: CP -resolved -cardiology following -LHC today Aflutter Hx of CVA -CTI dependent -need NOAC for 4 weeks post flutter ablation -EP following -ablation planned for wednesday -BB -heparin -CHADs2-vasc= 5 HTN -stable JACK -BMP daily Tono Omalley DO [facility] Hospitalist 12/29/2015 7:30 AM documented in this encounter Miscellaneous Notes * Plan of Care - Hafsa Carrion RN - 12/30/2015 1:22 AM EDT Problem: Safety: Fall Risk Goal: Patient will remain free of falls and injury Outcome: Not Progressing Educated patient in the importance of allowing staff to assist with transfers. Patient uncooperative with staff, unwilling to use call light. Bed alarm activated. * Utilization Review Notes - Candace Rojas RN - 12/29/2015 11:30 AM EDT NEW ADMIT ON TCU INPUT ORDER ON CHART FOR CHEST PAIN PT D/C FROM [facility] FOR BE ADMITTED AT [facility] FOR CARDIAC PROCEDURE MD NOTE 12/28: Chief Complaint: aflutter History of Present Illness:65 yo WF admitted for evaluation of chest pain and palpitations, she wasfound the have A flutter 2:1. Placed on IV heparin and BB, seen by cardiology and EP. She had mild JACK on CKD with improved with IVF. Transfer from [facility] for ablation and LHC. Cardiac cath 12/28: Conclusion Result status: Final result ? Proximal LAD 60-70% stenosis. ?? Ostial RCA 20%, no dampening noted. ?? The ejection fraction is 50-55% by visual estimate?? Plan FFR of LAD with Dr. Winchester Hep gtt 9.5 ml/hr Ns at 150 ml/hr documented in this encounter Plan of Treatment Pending Results Name Type Priority Associated Diagnoses Date /Time GLUCOSE METER POC Point of Care Testing Routine 12/29/2015 3:42 PM EDT documented as of this encounter Procedures Procedure Name Priority Date/Time Associated Diagnosis Comments SCANNED RHYTHM STRIPS 01/06/2016 4:38 PM EDT GLUCOSE METER POC Routine 01/02/2016 11: 55 AM EDT HOME HEALTH ORDERS (FACE TO FACE ENCOUNTER) Routine 01/02/2016 11:34 AM EDT GLUCOSE METER POC Routine 01/02/2016 8:1 5 AM EDT BASIC METABOLIC PANEL Routine 01/02/2016 6:05 AM EDT GLUCOSE METER POC Routine 01/01/2016 11: 07 PM EDT SCANNED RHYTHM STRIPS 01/01/2016 9:53 PM EDT GLUCOSE METER POC Routine 01/01/2016 6:2 7 PM EDT GLUCOSE METER POC Routine 01/01/2016 12: 52 PM EDT IP CONSULT TO SOCIAL WORK Routine 2015 12:22 PM EDT SCANNED RHYTHM STRIPS 01/01/2016 9:31 AM EDT GLUCOSE METER POC Routine 01/01/2016 8:4 3 AM EDT SCANNED RHYTHM STRIPS 01/01/2016 6:16 AM EDT CBC Early AM 01/01/2016 6:10 AM EDT BASIC METABOLIC PANEL Routine 01/01/2016 6:10 AM EDT GLUCOSE METER POC Routine 12/31/2015 8:1 7 PM EDT GLUCOSE METER POC Routine 12/31/2015 5:3 2 PM EDT GLUCOSE METER POC Routine 12/31/2015 4:5 0 PM EDT EK EKG 12 LEAD Routine 12/31/2015 4:47 PM EDT ELECTROPHYSIOLOGY PROCEDURE Routine 12/31/2015 4:43 PM EDT GLUCOSE METER POC Routine 12/31/2015 2:0 3 PM EDT GLUCOSE METER POC Routine 12/31/2015 12: 37 PM EDT SCANNED RHYTHM STRIPS 12/31/2015 8:15 AM EDT GLUCOSE METER POC Routine 12/31/2015 7:2 0 AM EDT HEPARIN ANTI-XA, UNF Early AM 12/31/2015 5:12 AM EDT CBC Early AM 12/31/2015 5:12 AM EDT BASIC METABOLIC PANEL Routine 12/31/2015 5:12 AM EDT SCANNED RHYTHM STRIPS 12/31/2015 12:34 AM EDT GLUCOSE METER POC Routine 12/30/2015 8:1 4 PM EDT GLUCOSE METER POC Routine 12/30/2015 5:0 6 PM EDT SCANNED RHYTHM STRIPS 12/30/2015 4:11 PM EDT GLUCOSE METER POC Routine 12/30/2015 2:1 5 PM EDT GLUCOSE METER POC Routine 12/30/2015 8:5 3 AM EDT HEPARIN ANTI-XA, UNF Early AM 12/30/2015 7:10 AM EDT DIFFERENTIAL Early AM 12/30/2015 6:20 AM EDT CBC WITH DIFF Early AM 12/30/2015 6:20 AM EDT MAGNESIUM LEVEL Early AM 12/30/2015 6:20 AM EDT BASIC METABOLIC PANEL Early AM 12/30/2015 6:20 AM EDT SCANNED RHYTHM STRIPS 12/29/2015 11:56 PM EDT GLUCOSE METER POC Routine 12/29/2015 8:0 7 PM EDT GLUCOSE METER POC Routine 12/29/2015 3:4 2 PM EDT GLUCOSE METER POC Routine 12/29/2015 11: 51 AM EDT ACTIVATED CLOTTING TIME + POC Routine 12/29/2015 10:46 AM EDT IP CONSULT TO PHARMACY Routine 6 9:53 AM EDT ACTIVATED CLOTTING TIME + POC Routine 12/29/2015 9:33 AM EDT CARDIAC PROCEDURE Routine 12/29/2015 9:0 7 AM EDT LEFT HEART CATH Routine 12/29/2015 9:07 AM EDT LEFT VENTRICULOGRAM Routine 12/29/2015 9 :07 AM EDT CARDIAC PROCEDURE Routine 12/29/2015 9:0 7 AM EDT ACTIVATED CLOTTING TIME + POC Routine 12/29/2015 8:41 AM EDT GOLD BEATER HEMODYNAMIC WAVEFORMS Routine 12/29/2015 8:28 AM EDT SCANNED RHYTHM STRIPS 12/29/2015 8:06 AM EDT GLUCOSE METER POC Routine 12/29/2015 7:5 6 AM EDT DIFFERENTIAL Early AM 12/29/2015 6:20 AM EDT CBC WITH DIFF Early AM 12/29/2015 6:20 AM EDT MAGNESIUM LEVEL Early AM 12/29/2015 6:20 AM EDT BASIC METABOLIC PANEL Early AM 12/29/2015 6:20 AM EDT HEPARIN ANTI-XA, UNF Early AM 12/29/2015 4:58 AM EDT IP CONSULT TO SOCIAL WORK Routine 2015 2:31 AM EDT HEPARIN ANTI-XA, UNF Timed 12/28/2015 9:50 PM EDT DIFFERENTIAL Routine 12/28/2015 9:50 PM EDT PT / INR Routine 12/28/2015 9:50 PM EDT CBC WITH DIFF Routine 12/28/2015 9:50 PM EDT BASIC METABOLIC PANEL Routine 12/28/2015 9:50 PM EDT GLUCOSE METER POC Routine 12/28/2015 8:1 4 PM EDT IP CONSULT TO PHARMACY Routine 6 7:50 PM EDT documented in this encounter Results * SCANNED RHYTHM STRIPS (01/06/2016 4:38 PM EDT) Anatomical Region Laterality Modality Other 01/06/2016 4:38 PM EDT Unknown Unknown IMG ECG ORDERABLES Edited Result - Final * (ABNORMAL) GLUCOSE METER POC (01/02/2016 11:55 AM EDT) Glucose Meter POC 126(H) 70 - 100 mg/dL [facility] POINT OF CARE LABORATORY Blood specimen (specimen) 01/02/2016 11:55 AM EDT 01/02/2016 11:55 AM EDT Mayo William Omalley POINT OF CARE TEST ORDER DEBBIE Final Result Performing Organization Address [facility] Co de Phone Number [facility] POINT [facility] [address] [facility] [place] [address] * (ABNORMAL) GLUCOSE METER POC (01/02/2016 8:15 AM EDT) Glucose Meter POC 66(L) 70 - 100 mg/dL [facility] POINT OF [facility] Blood specimen (specimen) 01/02/2016 8:15 AM EDT 01/02/2016 8:15 AM EDT Mayo Omalley POINT OF CARE TEST ORDER DEBBIE Final Result Performing Organization Address [facility] de Phone Number [facility] [address] [facility] [place] [address] * BASIC METABOLIC PANEL (01/02/2016 6:05 AM EDT) Sodium 143 136 - 145 mmol/L [facility] Potassium 4.0 3.5 - 5.0 mmol/L [facility] Chloride 104 98 - 107 mmol/L [facility] Total CO2 29 22 - 29 mmol/L [facility] Anion Gap 10 7 - 16 mmol/L [facility] Calcium 9.2 8.8 - 10.2 mg/dL [facility] Glucose Lvl 84 82 - 100 mg/dL [facility] BUN 17 8 - 23 mg/dL [facility] Creatinine 1.25 0.51 - 1.30 mg/dL [facility] GFR Afr Am 52 [facility] GFR Non Afr Am 43 [facility] Blood specimen (specimen) 01/02/2016 6:05 AM EDT 01/02/2016 7:32 AM EDT Ernie Pizano MD CHEMISTRY ORDERABLES Edited R esult - Final Performing Organization Address [facility] Co de Phone Number [address] [place] [address] * GLUCOSE METER POC (01/01/2016 11:07 PM EDT) Glucose Meter POC 92 70 - 100 mg/dL [facility] POINT OF [facility] Blood specimen (specimen) 01/01/2016 11:07 PM EDT 01/01/2016 11:07 PM EDT Mayo Omalley DO POINT OF CARE TEST ORDER DEBBIE Final Result Performing Organization Address [facility] Phone Number [address] [place] [address] * SCANNED RHYTHM STRIPS (01/01/2016 9:53 PM EDT) Anatomical Region Laterality Modality Other 01/01/2016 9:53 PM EDT Unknown Unknown IMG ECG ORDERABLES Final Result * GLUCOSE METER POC (01/01/2016 6:27 PM EDT) Glucose Meter POC 83 70 - 100 mg/dL [facility] Blood specimen (specimen) 01/01/2016 6:27 PM EDT 01/01/2016 6:27 PM EDT Mayo Omalley DO POINT OF CARE TEST ORDER DEBBIE Final Result Performing Organization Address [facility] de Phone Number [address] [place] [address] * (ABNORMAL) GLUCOSE METER POC (01/01/2016 12:52 PM EDT) Glucose Meter POC 137(H) 70 - 100 mg/dL [facility] PO[facility] Blood specimen (specimen) 01/01/2016 12:52 PM EDT 01/01/2016 12:52 PM EDT Mayo Omalley POINT OF CARE TEST ORDER DEBBIE Final Result Performing Organization Address [facility] Co de Phone Number [facility] POINT OF CARE LABORATORY [address] [facility] [place] [address] * SCANNED RHYTHM STRIPS (01/01/2016 9:31 AM EDT) Anatomical Region Laterality Modality Other 01/01/2016 9:31 AM EDT us Unknown Unknown IMG ECG ORDERABLES Final Result * (ABNORMAL) GLUCOSE METER POC (01/01/2016 8:43 AM EDT) Glucose Meter POC 120(H) 70 - 100 mg/dL [facility] Blood specimen (specimen) 01/01/2016 8:43 AM EDT 01/01/2016 8:43 AM EDT Mayo Omalley POINT OF CARE TEST ORDER DEBBIE Final Result Performing Organization Address [facility] de Phone Number [facility] 1 [facility] [place] [address] * SCANNED RHYTHM STRIPS (01/01/2016 6:16 AM EDT) Anatomical Region Laterality Modality Other 01/01/2016 6:16 AM EDT us Unknown Unknown IMG ECG ORDERABLES Final Result * (ABNORMAL) CBC (01/01/2016 6:10 AM EDT) WBC 7.4 4.0 - 11.0 x10(3)/mcL [facility] RBC 3.59(L) 3.80 - 5.10 x10(6)/mcL [facility] Hgb 10.8(L) 12.0 - 15.6 gm/dL [facility] Hct 32.4(L) 35.7 - 45.9 % [facility] MCV 90.2 82.5 - 99.8 fL [facility] MCH 30.1 27.0 - 34.3 pg [facility] MCHC 33.4 32.1 - 35.3 gm/dL [facility] RDW 14.3 11.5 - 15.0 % [facility] Platelet 126(L) 144 - 423 x10(3)/mcL [facility] MPV 9.3 6.8 - 10.8 fL [facility] Blood specimen (specimen) UPPER LIMB STRUCTURE / Unknown 01/01/2016 6:10 AM EDT 01/01/2016 6:13 AM EDT Narrative [facility] - 01/01/2016 6:23 AM EDT Hemogram every 2nd day while on heparin us Kaushik Perea MD HEMATOLOGY [place] [address] * (ABNORMAL) BASIC METABOLIC PANEL (01/01/2016 6:10 AM EDT) Sodium 140 136 - 145 mmol/L [facility] Potassium 4.3 3.5 - 5.0 mmol/L [facility] Chloride 104 98 - 107 mmol/L [facility] Total CO2 27 22 - 29 mmol/L [facility] Anion Gap 9 7 - 16 mmol/L [facility] Calcium 8.7(L) 8.8 - 10.2 mg/dL [facility] Glucose Lvl 116(H) 82 - 100 mg/dL [facility] BUN 16 8 - 23 mg/dL [facility] Creatinine 1.27 0.51 - 1.30 mg/dL [facility] GFR Afr Am 51 [facility] GFR Non Afr Am 42 [facility] Blood specimen (specimen) UPPER LIMB STRUCTURE / Unknown 01/01/2016 6:10 AM EDT 01/01/2016 6:13 AM EDT us Kaushik Perea MD CHEMISTRY ORDERABLES Edited Resu lt - Final Performing Organization Address [facility]/ZIP Co de Phone Number [facility] 1 [facility] [place] [address] * (ABNORMAL) GLUCOSE METER POC (12/31/2015 8:17 PM EDT) Glucose Meter POC 115(H) 70 - 100 mg/dL [facility] Blood specimen (specimen) 12/31/2015 8:17 PM EDT 12/31/2015 8:17 PM EDT Mayo Omalley DO POINT OF CARE TEST ORDER DEBBIE Final Result Performing Organization Address [facility] de Phone Number [facility] 1 [facility] [place] [address] * GLUCOSE METER POC (12/31/2015 5:32 PM EDT) Glucose Meter POC 73 70 - 100 mg/dL [facility] Blood specimen (specimen) 12/31/2015 5:32 PM EDT 12/31/2015 5:32 PM EDT Mayo Omalley DO POINT OF CARE TEST ORDER DEBBIE Final Result Performing Organization Address [facility] Co de Phone Number [facility] 1 [facility] [place] [address] * GLUCOSE METER POC (12/31/2015 4:50 PM EDT) Glucose Meter POC 86 70 - 100 mg/dL [facility] Blood specimen (specimen) 12/31/2015 4:50 PM EDT 12/31/2015 4:50 PM EDT us Mayo Omalley DO POINT OF CARE TEST ORDER DEBBIE Final Result Performing Organization Address City/[facility]/ZIP Co de Phone Number [facility] 1 [facility] [place] [address] * EK EKG 12 LEAD (12/31/2015 4:47 PM EDT) Anatomical Region Laterality Modality Electrocardiogra phy 12/31/2015 4:56 PM EDT Impressions 12/31/2015 6:13 PM EDT ? Stationary ECG Study ?[place]onSandra [place] ? Interpretive Statements ? SINUS RHYTHM Conversion to sinus rhythm from flutter LOW QRS VOLTAGE IN PRECORDIAL LEADS ANTEROSEPTAL MYOCARDIAL INFARCTION, PROBABLY OLD Electronically Signed On 12-31-2015 18:13:01 EDT by Ashwin Hoffmann MD Narrative Procedure Note Ashwin Hoffmann MD - 12/31/2015 IMPRESS[address] ECG Study [facility] [place] Interpretive Statements SINUS RHYTHM Conversion to sinus rhythm from flutter LOW QRS VOLTAGE IN PRECORDIAL LEADS ANTEROSEPTAL MYOCARDIAL INFARCTION, PROBABLY OLD Electronically Signed On 12-31-2015 18:13:01 EDT by Ashwin Hoffmann MD us Mita Tee MD IMG ECG ORDERABLES Final Resu lt * ELECTROPHYSIOLOGY STUDIES + RADIO FREQUENCY ABLATION (12/31/2015 4:43 PM EDT) Narrative [facility] - 12/31/2015 4:44 PM EDT 1. Successful mapping and ablation of CTI flutter with CL 260ms with achievement of Bidirectional block Complication There were no immediate complications Elida Martin APRN ELECTROPHYSIOLOGY ORDER DEBBIE Final Result Performing Organization Address [facility]/ZIP Co de Phone Number [facility] * GLUCOSE METER POC (12/31/2015 2:03 PM EDT) Glucose Meter POC 72 70 - 100 mg/dL [facility] Blood specimen (specimen) 12/31/2015 2:03 PM EDT 12/31/2015 2:03 PM EDT Mayo Omalley DO POINT OF CARE TEST ORDER DEBBIE Final Result Performing Organization Address [facility] Co de Phone Number [facility] 1 [facility] [place] [address] * GLUCOSE METER POC (12/31/2015 12:37 PM EDT) Glucose Meter POC 89 70 - 100 mg/dL [facility] Blood specimen (specimen) 12/31/2015 12:37 PM EDT 12/31/2015 12:37 PM EDT Mayo Omalley DO POINT OF CARE TEST ORDER DEBBIE Final Result Performing Organization Address [facility] Phone Number [facility] 1 [facility] [place] [address] * SCANNED RHYTHM STRIPS (12/31/2015 8:15 AM EDT) Anatomical Region Laterality Modality Other 12/31/2015 8:15 AM EDT Unknown Unknown IMG ECG ORDERABLES Final Result * (ABNORMAL) GLUCOSE METER POC (12/31/2015 7:20 AM EDT) Glucose Meter POC 108(H) 70 - 100 mg/dL [facility] Blood specimen (specimen) 12/31/2015 7:20 AM EDT 12/31/2015 7:20 AM EDT us Mayo Omalley DO POINT OF CARE TEST ORDER DEBBIE Final Result Performing Organization Address [facility] Co de Phone Number [facility] [place] [address] * (ABNORMAL) CBC (12/31/2015 5:12 AM EDT) WBC 7.6 4.0 - 11.0 x10(3)/mcL [facility] RBC 3.89 3.80 - 5.10 x10(6)/mcL [facility] Hgb 11.6(L) 12.0 - 15.6 gm/dL [facility] Hct 35.4(L) 35.7 - 45.9 % [facility] MCV 91.1 82.5 - 99.8 fL [facility] MCH 29.8 27.0 - 34.3 pg [facility] MCHC 32.7 32.1 - 35.3 gm/dL [facility] RDW 14.3 11.5 - 15.0 % [facility] Platelet 145 144 - 423 x10(3)/mcL [facility] MPV 10.8 6.8 - 10.8 fL [facility] Blood specimen (specimen) UPPER LIMB STRUCTURE / Unknown 12/31/2015 5:12 AM EDT 12/31/2015 9:44 AM EDT Narrative [facility] - 12/31/2015 10:21 AM EDT Hemogram every 2nd day while on heparin us Ernie Pizano MD HEMATOLOGY ORDERABLES Final R esult Performing Organization Address City/[facility]/ZIP Co de Phone Number [facility] 1 [place] [address] * HEPARIN ANTI-XA, UNF (12/31/2015 5:12 AM EDT) Heparin Level UNF 0.35 0.30 - 0.70 IU/mL [facility] Comment:The therapeutic rang e for heparinized patients monitored by the Heparin Lvl UF is 0.30-0.70 IU/mL. Blood specimen (specimen) 12/31/2015 5:12 AM EDT 12/31/2015 7:30 AM EDT Narrative [facility] - 12/31/2015 7:41 AM EDT Heparin anti-Xa unfractionated level every day while on heparin us Campbell Huston MD HEMATOLOGY ORDERABLES Final Resu lt Performing Organization Address [facility] [place] [address] * (ABNORMAL) BASIC METABOLIC PANEL (12/31/2015 5:12 AM EDT) Sodium 142 136 - 145 mmol/L [facility] Potassium 4.0 3.5 - 5.0 mmol/L [facility] Chloride 102 98 - 107 mmol/L [facility] Total CO2 25 22 - 29 mmol/L [facility] Anion Gap 15 7 - 16 mmol/L [facility] Calcium 8.9 8.8 - 10.2 mg/dL [facility] Glucose Lvl 113(H) 82 - 100 mg/dL [facility] BUN 20 8 - 23 mg/dL [facility] Creatinine 1.55(H) 0.51 - 1.30 mg/dL [facility] GFR Afr Am 41 [facility] GFR Non Afr Am 34 [facility] Blood specimen (specimen) 12/31/2015 5:12 AM EDT 12/31/2015 7:31 AM EDT us Ernie Pizano MD CHEMISTRY ORDERABLES Edited R esult - Final Performing Organization Address City/[facility]/ZIP Co de Phone Number [facility] 1 [place] [address] * SCANNED RHYTHM STRIPS (12/31/2015 12:34 AM EDT) Anatomical Region Laterality Modality Other 12/31/2015 12:3 4 AM EDT us Unknown Unknown IMG ECG ORDERABLES Final Result * (ABNORMAL) GLUCOSE METER POC (12/30/2015 8:14 PM EDT) Glucose Meter POC 116(H) 70 - 100 mg/dL [facility] Blood specimen (specimen) 12/30/2015 8:14 PM EDT 12/30/2015 8:14 PM EDT Mayo Omalley DO POINT OF CARE TEST ORDER DEBBIE Final Result Performing Organization Address [facility] de Phone Number [facility] 1 [facility] [place] [address] * GLUCOSE METER POC (12/30/2015 5:06 PM EDT) Glucose Meter POC 75 70 - 100 mg/dL [facility] Blood specimen (specimen) 12/30/2015 5:06 PM EDT 12/30/2015 5:06 PM EDT Mayo Omalley POINT OF CARE TEST ORDER DEBBIE Final Result Performing Organization Address [facility] Phone Number [facility] 1 [facility] [place] [address] * SCANNED RHYTHM STRIPS (12/30/2015 4:11 PM EDT) Anatomical Region Laterality Modality Other 12/30/2015 4:11 PM EDT Unknown Unknown IMG ECG ORDERABLES Final Result * (ABNORMAL) GLUCOSE METER POC (12/30/2015 2:15 PM EDT) Glucose Meter POC 157(H) 70 - 100 mg/dL [facility] Blood specimen (specimen) 12/30/2015 2:15 PM EDT 12/30/2015 2:15 PM EDT us Mayo Omalley DO POINT OF CARE TEST ORDER DEBBIE Final Result Performing Organization Address [facility] de Phone Number [facility] 1 [facility] [place] [address] * (ABNORMAL) GLUCOSE METER POC (12/30/2015 8:53 AM EDT) Glucose Meter POC 108(H) 70 - 100 mg/dL [facility] Blood specimen (specimen) 12/30/2015 8:53 AM EDT 12/30/2015 8:53 AM EDT Mayo Omalley DO POINT OF CARE TEST ORDER DEBBIE Final Result Performing Organization Address [facility] Co de Phone Number [facility] 1 [facility] [place] [address] * HEPARIN ANTI-XA, UNF (12/30/2015 7:10 AM EDT) Heparin Level UNF 0.30 0.30 - 0.70 IU/mL [facility] Comment:The therapeutic rang e for heparinized patients monitored by the Heparin Lvl UF is 0.30-0.70 IU/mL. Blood specimen (specimen) 12/30/2015 7:10 AM EDT 12/30/2015 7:41 AM EDT Narrative [facility] - 12/30/2015 8:02 AM EDT Heparin anti-Xa unfractionated level every day while on heparin Campbell Huston MD HEMATOLOGY ORDERABLES Final Resu lt Performing Organization Address [facility] Co de Phone Number [facility] [address] [place] [address] * DIFFERENTIAL (12/30/2015 6:20 AM EDT) Neut Percent 58.5 % [facility] Lymph Percent 29.1 % [facility] [place] Percent 7.7 % [facility] Eos Percent 4.1 % [facility] Baso Percent 0.6 % [facility] Neut# 5.0 1.8 - 7.7 x10(3)/mcL [facility] Lymph# 2.5 0.6 - 4.8 x10(3)/mcL [facility] [place]# 0.7 0.0 - 1.3 x10(3)/mcL [facility] Eos# 0.4 0.0 - 0.5 x10(3)/[facility] LAB[facility] Baso# 0.1 0.0 - 0.2 x10(3)/[facility] Blood specimen (specimen) 12/30/2015 6:20 AM EDT 12/30/2015 6:25 AM EDT us Campbell Huston MD HEMATOLOGY ORDERABLES Final Resu lt Performing Organization Address [facility] Co de Phone Number [facility] 1 [place] [address] * (ABNORMAL) BASIC METABOLIC PANEL (12/30/2015 6:20 AM EDT) Sodium 141 136 - 145 mmol/L [facility] Potassium 4.0 3.5 - 5.0 mmol/L [facility] Chloride 101 98 - 107 mmol/L [facility] Total CO2 28 22 - 29 mmol/L [facility] Anion Gap 12 7 - 16 mmol/L [facility] Calcium 8.9 8.8 - 10.2 mg/dL [facility] Glucose Lvl 126(H) 82 - 100 mg/dL [facility] BUN 19 8 - 23 mg/dL [facility] Creatinine 1.66(H) 0.51 - 1.30 mg/dL [facility] GFR [facility] GFR Non Afr Am 31 [facility] Blood specimen (specimen) UPPER LIMB STRUCTURE / Unknown 12/30/2015 6:20 AM EDT 12/30/2015 6:25 AM EDT us Campbell Huston MD CHEMISTRY ORDERABLES Edited Resu lt - Final Performing Organization Address City/[facility]/ZIP Co de Phone Number [facility] 1 [place] [address] * MAGNESIUM LEVEL (12/30/2015 6:20 AM EDT) Magnesium 1.9 1.6 - 2.4 mg/dL [facility] Blood specimen (specimen) UPPER LIMB STRUCTURE / Unknown 12/30/2015 6:20 AM EDT 12/30/2015 6:25 AM EDT Campbell Huston MD CHEMISTRY ORDERABLES Final Resul t Performing Organization Address [facility] de Phone Number [facility] 1 [place] [address] * (ABNORMAL) CBC WITH AUTO DIFF (12/30/2015 6:20 AM EDT) [facility] WBC 8.6 4.0 - 11.0 x10(3)/mcL [facility] RBC 4.07 3.80 - 5.10 x10(6)/mcL [facility] Hgb 11.9(L) 12.0 - 15.6 gm/dL [facility] Hct 36.0 35.7 - 45.9 % [facility] MCV 88.6 82.5 - 99.8 fL [facility] MCH 29.2 27.0 - 34.3 pg [facility] MCHC 32.9 32.1 - 35.3 gm/dL [facility] RDW 14.5 11.5 - 15.0 % [facility] Platelet 160 144 - 423 x10(3)/mcL [facility] MPV 9.6 6.8 - 10.8 fL [facility] Blood specimen (specimen) UPPER LIMB STRUCTURE / Unknown 12/30/2015 6:20 AM EDT 12/30/2015 6:25 AM EDT Campbell Huston MD HEMATOLOGY ORDERABLES Final Resu lt Performing Organization Address City/[facility]/ZIP Co de Phone Number [facility] 1 [place] [address] * SCANNED RHYTHM STRIPS (12/29/2015 11:56 PM EDT) Anatomical Region Laterality Modality Other 12/29/2015 11:5 6 PM EDT us Unknown Unknown IMG ECG ORDERABLES Final Result * GLUCOSE METER POC (12/29/2015 8:07 PM EDT) Glucose Meter POC 97 70 - 100 mg/dL [facility] Blood specimen (specimen) 12/29/2015 8:07 PM EDT 12/29/2015 8:07 PM EDT Mayo Omalley DO POINT OF CARE TEST ORDER DEBBIE Final Result Performing Organization Address [facility] Co de Phone Number [facility] 1 [facility] [place] [address] * (ABNORMAL) GLUCOSE METER POC (12/29/2015 3:42 PM EDT) Glucose Meter POC 168(H) 70 - 100 mg/dL [facility] Blood specimen (specimen) 12/29/2015 3:42 PM EDT 12/29/2015 3:42 PM EDT Mayo Omalley POINT OF CARE TEST ORDER DEBBIE Final Result Performing Organization Address [facility] de Phone Number [facility] 1 [facility] [place] [address] * (ABNORMAL) GLUCOSE METER POC (12/29/2015 11:51 AM EDT) Glucose Meter POC 113(H) 70 - 100 mg/dL [facility] Blood specimen (specimen) 12/29/2015 11:51 AM EDT 12/29/2015 11:51 AM EDT us Mayo Omalley DO POINT OF CARE TEST ORDER DEBBIE Final Result Performing Organization Address City/[facility] Co de Phone Number [facility] 1 [facility] [place] [address] * ACTIVATED CLOTTING TIME POC (12/29/2015 10:46 AM EDT) ACT -LR 151 89 - 169 second(s) [facility] Blood specimen (specimen) 12/29/2015 10:46 AM EDT 12/29/2015 10:46 AM EDT Mayo Omalley DO POINT OF CARE TEST ORDER DEBBIE Final Result Performing Organization Address [facility] Co de Phone Number [facility] [address] [facility] [place] [address] * (ABNORMAL) ACTIVATED CLOTTING TIME POC (12/29/2015 9:33 AM EDT) ACT -LR 178(H) 89 - 169 second(s) [facility] Blood specimen (specimen) 12/29/2015 9:33 AM EDT 12/29/2015 9:33 AM EDT Kaushik Perea MD POINT OF CARE TEST ORDERABLES Fi nal Result Performing Organization Address [facility] Phone Number [facility] [address] [place] [address] [place] [address] * INTRAVASCULAR DOPPLER VELOCITY (12/29/2015 9:07 AM EDT) Narrative [facility] - 12/29/2015 11:45 AM EDT ?? Mid LAD lesion 70% stenosed. Mid LAD of approximately 70% but difficult to quantify due to discrete lesion at point of trifurcation with a non flow limiting lesion based on FFR of 0.92 Coronary Findings Diagnostic Dominance: Right Left Anterior Descending: Mid LAD lesion 70% stenosed. The lesion is discrete. The stenosis was measured by a visual reading. Pressure wire/FFR was performed on the lesion. FFR: 0.92. Maximum hyperemia was achieved through IV adenosine Very discrete mid LAD at trifurcation of diagonal and septal branches Intervention No interventions have been documented. Complication There were no immediate complications Mike Winchester MD CARDIAC CATH ORDERABLES Final Result Performing Organization Address [facility] Co de Phone Number [facility] * CORONARY ANGIOGRAM (COR/LHC/LV GRAM, CARDIAC CATHETERIZATION), LEFT VENTRICULOGRAM, LEFT HEART CATH(12/29/2015 9:07 AM EDT) Cath EF Estimated 50 % [facility] Narrative [facility] - 12/29/2015 10:41 AM EDT ?? Proximal LAD 60-70% stenosis. ?? Ostial RCA 20%, no dampening noted. ?? The ejection fraction is 50-55% by visual estimate Plan FFR of LAD with Dr. Winchester Coronary Findings Diagnostic Dominance: Right Left Main: The vessel is moderate in size. Left Anterior Descending: Proximal LAD 60-70% stenosis. Left Circumflex: There is mild diffuse disease throughout the vessel. Right Coronary Artery: High anterior takeoff. Ostial RCA 20%, no dampening noted. Intervention No interventions have been documented. Left Ventricle The ejection fraction is 50-55% by visual estimate. Complication There were no immediate complications us Kaushik Perea MD CARDIAC CATH ORDERABLES Final Re sult Performing Organization Address [facility] Co de Phone Number [facility] * ACTIVATED CLOTTING TIME POC (12/29/2015 8:41 AM EDT) ACT -LR 154 89 - 169 second(s) [facility] Blood specimen (specimen) 12/29/2015 8:41 AM EDT 12/29/2015 8:41 AM EDT us Kaushik Perea MD POINT OF CARE TEST ORDERABLES Fi nal Result Performing Organization Address [facility] de Phone Number [facility] [address] [place] [id number] * GOLD BEATER HEMODYNAMIC WAVEFORMS (12/29/2015 8:28 AM EDT) 12/29/2015 8:28 AM EDT us Kaushik Perea MD CARDIAC CATH ORDERABLES Final Re sult Performing Organization Address [facility] Co de Phone Number [facility] 1 [place] [address] * SCANNED RHYTHM STRIPS (12/29/2015 8:06 AM EDT) Anatomical Region Laterality Modality Other 12/29/2015 8:06 AM EDT us Unknown Unknown IMG ECG ORDERABLES Final Result * (ABNORMAL) GLUCOSE METER POC (12/29/2015 7:56 AM EDT) Glucose Meter POC 117(H) 70 - 100 mg/dL [facility] Blood specimen (specimen) 12/29/2015 7:56 AM EDT 12/29/2015 7:56 AM EDT Kaushik Perea MD POINT OF CARE TEST ORDERABLES Fi nal Result Performing Organization Address [facility] [place]/[facility] Co de Phone Number [facility] [address] [place] [address] * DIFFERENTIAL (12/29/2015 6:20 AM EDT) Neut Percent 67.4 % [facility] Lymph Percent 20.8 % [facility] [place] Percent 6.8 % [facility] Eos Percent 4.3 % [facility] Baso Percent 0.7 % [facility] Neut# 4.9 1.8 - 7.7 x10(3)/[facility] Lymph# 1.5 0.6 - 4.8 x10(3)/[facility] [place]# 0.5 0.0 - 1.3 x10(3)/[facility] Eos# 0.3 0.0 - 0.5 x10(3)/[facility] Baso# 0.1 0.0 - 0.2 x10(3)/[facility] Blood specimen (specimen) 12/29/2015 6:20 AM EDT 12/29/2015 6:24 AM EDT Campbell Huston MD HEMATOLOGY ORDERABLES Final Resu lt Performing Organization Address [facility] [place]/ZIP Co de Phone Number [facility] [address] [place] [address] * MAGNESIUM LEVEL (12/29/2015 6:20 AM EDT) Magnesium 1.8 1.6 - 2.4 mg/dL [facility] Blood specimen (specimen) UPPER LIMB STRUCTURE / Unknown 12/29/2015 6:20 AM EDT 12/29/2015 6:24 AM EDT Campbell Huston MD CHEMISTRY ORDERABLES Final Resul t Performing Organization Address City/[facility] [place]/[facility] Co de Phone Number [facility] [address] [place] [address] * CBC WITH AUTO DIFF (12/29/2015 6:20 AM EDT) WBC 7.2 4.0 - 11.0 x10(3)/mcL [facility] RBC 4.11 3.80 - 5.10 x10(6)/mcL [facility] Hgb 12.3 12.0 - 15.6 gm/dL [facility] Hct 36.4 35.7 - 45.9 % [facility] MCV 88.6 82.5 - 99.8 fL [facility] MCH 30.0 27.0 - 34.3 pg [facility] MCHC 33.8 32.1 - 35.3 gm/dL [facility] RDW 13.6 11.5 - 15.0 % [facility] Platelet 145 144 - 423 x10(3)/mcL [facility] MPV 9.5 6.8 - 10.8 fL [facility] Blood specimen (specimen) UPPER LIMB STRUCTURE / Unknown 12/29/2015 6:20 AM EDT 12/29/2015 6:24 AM EDT Campbell Huston MD HEMATOLOGY ORDERABLES Final Resu lt [facility] [address] [place] [address] * (ABNORMAL) BASIC METABOLIC PANEL (12/29/2015 6:20 AM EDT) Sodium 140 136 - 145 mmol/L [facility] Potassium 3.9 3.5 - 5.0 mmol/L [facility] Chloride 103 98 - 107 mmol/L [facility] Total CO2 26 22 - 29 mmol/L [facility] Anion Gap 11 7 - 16 mmol/L [facility] Calcium 9.1 8.8 - 10.2 mg/dL [facility] Glucose Lvl 136(H) 82 - 100 mg/dL [facility] BUN 15 8 - 23 mg/dL [facility] Creatinine 1.19 0.51 - 1.30 mg/dL [facility] GFR [facility]fr [facility] GFR Non Afr Am 46 [facility] Blood specimen (specimen) UPPER LIMB STRUCTURE / Unknown 12/29/2015 6:20 AM EDT 12/29/2015 6:24 AM EDT us Campbell Huston MD CHEMISTRY ORDERABLES Edited Resu lt - Final Performing Organization Address [facility] [place]/[facility] Co de Phone Number [facility] [address] [place] [address] * HEPARIN ANTI-XA, UNF (12/29/2015 4:58 AM EDT) Heparin Level UNF 0.31 0.30 - 0.70 IU/mL [facility] Comment:The therapeutic rang e for heparinized patients monitored by the Heparin Lvl UF is 0.30-0.70 IU/mL. Blood specimen (specimen) 12/29/2015 4:58 AM EDT 12/29/2015 6:09 AM EDT Narrative [facility] - 12/29/2015 6:32 AM EDT Heparin anti-Xa unfractionated level every day while on heparin us Campbell Huston MD HEMATOLOGY ORDERABLES Final Resu lt Performing Organization Address City/[facility] [place]/ZIP Co de Phone Number [facility] [address] [place] [address] * DIFFERENTIAL (12/28/2015 9:50 PM EDT) Neut Percent 61.4 % [facility] Lymph Percent 26.1 % [facility] [place] Percent 6.7 % [facility] Eos Percent 5.0 % [facility] Baso Percent 0.8 % [facility] Neut# 4.6 1.8 - 7.7 x10(3)/[facility] Lymph# 2.0 0.6 - 4.8 x10(3)/[facility] [place]# 0.5 0.0 - 1.3 x10(3)/[facility] Eos# 0.4 0.0 - 0.5 x10(3)/[facility] Baso# 0.1 0.0 - 0.2 x10(3)/[facility] Blood specimen (specimen) 12/28/2015 9:50 PM EDT 12/28/2015 10:13 PM EDT us Kaushik Perea MD HEMATOLOGY ORDERABLES Final Resu lt Performing Organization Address [facility] [place]/[facility] [place] [address] * HEPARIN ANTI-XA, UNF (12/28/2015 9:50 PM EDT) Heparin Level UNF 0.32 0.30 - 0.70 IU/mL [facility] Comment:The therapeutic rang e for heparinized patients monitored by the Heparin Lvl UF is 0.30-0.70 IU/mL. Blood specimen (specimen) 12/28/2015 9:50 PM EDT 12/28/2015 10:13 PM EDT us Kaushik Perea MD HEMATOLOGY ORDERABLES Final Resu lt Performing Organization Address [facility] [place] [address] * PT / INR (12/28/2015 9:50 PM EDT) PT 11.9 10.1 - 12.9 second(s) [facility] INR 1.03 0.88 - 1.12 [facility] Comment: Level of Therapy ??Indications ??Target INR Range Standard Dose Treatment and prophylaxis of venous 2.0 - 3.0 ??thrombosis, pulmonary embolism ?High Dose High risk patients with mechanical ?2.5 - 3.5 ??heart valves Blood specimen (specimen) UPPER LIMB STRUCTURE / Unknown 12/28/2015 9:50 PM EDT 12/28/2015 10:13 PM EDT Narrative [facility] - 12/28/2015 10:26 PM EDT PT/INR only if patient is on Coumadin. ??Notify manager monitoring if INR is 1.8 or greater Kaushik Perea MD HEMATOLOGY ORDERABLES Final Resu lt Performing Organization Address City/[facility] [place]/ZIP Co de Phone Number [facility] [address] [place] [address] * (ABNORMAL) CBC WITH AUTO DIFF (12/28/2015 9:50 PM EDT) WBC 7.5 4.0 - 11.0 x10(3)/mcL [facility] RBC 4.23 3.80 - 5.10 x10(6)/mcL [facility] Hgb 12.5 12.0 - 15.6 gm/dL [facility] Hct 36.9 35.7 - 45.9 % [facility] MCV 87.3 82.5 - 99.8 fL [facility] MCH 29.5 27.0 - 34.3 pg [facility] MCHC 33.8 32.1 - 35.3 gm/dL [facility] RDW 14.1 11.5 - 15.0 % [facility] Platelet 142(L) 144 - 423 x10(3)/mcL [facility] MPV 9.7 6.8 - 10.8 fL [facility] Blood specimen (specimen) UPPER LIMB STRUCTURE / Unknown 12/28/2015 9:50 PM EDT 12/28/2015 10:13 PM EDT Narrative [facility] - 12/28/2015 10:19 PM EDT Do not repeat if done in the past 10 days. us Kaushik Perea MD HEMATOLOGY ORDERABLES Final Resu lt Performing Organization Address City/[facility] [place]/ZIP Co de Phone Number [facility] [address] [place] [address] * (ABNORMAL) BASIC METABOLIC PANEL (12/28/2015 9:50 PM EDT) Sodium 141 136 - 145 mmol/L [facility] Potassium 4.1 3.5 - 5.0 mmol/L [facility] Chloride 104 98 - 107 mmol/L [facility] Total CO2 24 22 - 29 mmol/L [facility] Anion Gap 13 7 - 16 mmol/L [facility] Calcium 8.8 8.8 - 10.2 mg/dL [facility] Glucose Lvl 125(H) 82 - 100 mg/dL [facility] BUN 16 8 - 23 mg/dL [facility] Creatinine 1.15 0.51 - 1.30 mg/dL [facility] GFR Afr Am 57 [facility] GFR Non Afr Am 48 [facility] Blood specimen (specimen) UPPER LIMB STRUCTURE / Unknown 12/28/2015 9:50 PM EDT 12/28/2015 10:13 PM EDT Narrative [facility] - 12/28/2015 10:43 PM EDT Notify manager monitoring if GFR <45, and/or potassium greater than or equal to 5.5 or less than or equal to 3.0. ??Do not repeat if done within past 10 days unless angiography study done within past 10 days. us Kaushik Perea MD CHEMISTRY ORDERABLES Edited Resu lt - Final [facility] [address] [place] [address] * GLUCOSE METER POC (12/28/2015 8:14 PM EDT) Glucose Meter POC 93 70 - 100 mg/dL [facility] Blood specimen (specimen) 12/28/2015 8:14 PM EDT 12/28/2015 8:14 PM EDT us Kaushik Perea MD POINT OF CARE TEST ORDERABLES Fi nal Result Performing Organization Address City/[facility] [place]/[facility] Co de Phone Number [facility] [address] [place] [address] [address] documented in this encounter Visit Diagnoses Diagnosis Typical atrial flutter (HCC)- Primary Atrial flutter Chest pain Chest pain, unspecified Essential hypertension Unspecified essential hypertension History of CVA (cerebrovascular accident) Transient ischemic attack (TIA), and cerebral infarction without residual deficits JACK (acute kidney injury) (HCC) Acute kidney failure, unspecified Hemiparesis affecting left side as late effect of stroke (HCC) Hemiplegia affecting unspecified side, late effect of cerebrovascular disease Ulcer of esophagus without bleeding Coronary artery disease involving [place] coronary artery of [place] heart without angina pectoris S/P ablation of atrial flutter Other postprocedural status Precordial pain Typical atrial flutter (HCC) Atrial flutter documented in this encounter Administered Medications Inactive Administered Medications - up to 1 most recent administrations Medication Order MAR Action Action Date Dose Rate Site 0.45 % NaCl infusion Intravenous, at 30 mL/hr, PREPROCEDURE CONTINUOUS, Starting on Wed12/31/15 at 0645, Until Wed01/01/16 at 0848, Administer 1 hour prior to procedure in left arm with 20 gauge or larger IV catheter, Pre-op (Floor Meds) New Bag 12/31/2015 1:58 PM EDT 30 mL/hr 0.9 % NaCl infusion Intravenous, at 150 mL/hr, CONTINUOUS, Starting on 12/29/15 at 0630, Until 12/29/15 at 0923, Start 2 hours prior to procedure at 150 mL/hr. If Sodium Bicarbonate drip to infuse, 0.9% Normal Saline to infuse at Keep Open Rate., Pre-op (Floor Meds) New Bag 12/29/2015 6:12 AM EDT 1,000 mL 150 mL/hr 0.9 % NaCl infusion Intravenous, at 50 mL/hr, CONTINUOUS, Starting on Wed12/30/15 at 1200, Until Wed01/01/16 at 1222 New Bag 01/01/2016 8:02 AM EDT 50 mL/hr acetaminophen (TYLENOL) tablet 650 mg 650 mg, Oral, EVERY 4 HOURS PRN, Starting on 12/31/15 at 1647, Until Francine 01/02/16 at 1856, Pain, Headaches, Maximum adult dose of acetaminophen is 4000 mg from all sources in 24 hours. , Post-op amitriptyline (ELAVIL) tablet 75 mg 75 mg, Oral, NIGHTLY, First dose on Wed12/29/15 at 2100, Until Discontinued Given 01/01/2016 8:54 PM EDT 75 mg apixaban (ELIQUIS) tablet 5 mg 5 mg, Oral, 2 TIMES DAILY, First dose on Wed12/31/15 at 2230, Until Discontinued Given 01/02/2016 8:30 AM EDT 5 mg ARIPiprazole (ABILIFY) tablet 30 mg 30 mg, Oral, DAILY, First dose (after last modification) on Wed12/29/15 at 0900, Until Discontinued, Discharge/Readmit Given 01/02/2016 8:29 AM EDT 30 mg aspirin EC tablet 81 mg 81 mg, Oral, DAILY, First dose on Wed12/30/15 at 0900, Until Discontinued, Post-op Given 01/02/2016 8:29 AM EDT 81 mg aspirin tablet 325 mg 325 mg, Oral, DAILY, First dose (after last modification) on Wed12/29/15 at 0900, Until Discontinued, Only give pre-procedure if patient did not take ordered aspirin at home, Discharge/Readmit Given 12/29/2015 6:06 AM EDT 325 mg atorvastatin (LIPITOR) tablet 20 mg 20 mg, Oral, NIGHTLY, First dose on Wed12/30/15 at 2100, Until Discontinued Given 01/01/2016 8:53 PM EDT 20 mg diltiazem (CARDIZEM) 1 mg/mL in dextrose 5% 125 mL infusion 5 mg/hr (5 mL/hr), Intravenous, CONTINUOUS, Starting on Wed12/29/15 at 1245, Until Wed12/31/15 at 1632, If titrating diltiazem and no maximum dose is specified, DO NOT exceed 15 mg/hr without contacting the prescribing physician. New Bag 12/30/2015 7:00 PM EDT 5 mg/hr 5 mL/hr diltiazem (CARDIZEM) 10 mg in dextrose 5% 10 mL iv bolus 10 mg, Intravenous, at 300 mL/hr, ONCE, 1 dose, On Wed12/29/15 at 1245, Diltiazem IV bolus. Administer bolus from infusion bag via Alaris pump., Administer over 2 Minutes Given 12/29/2015 1:00 PM EDT 10 mg 300 mL/hr fentaNYL (SUBLIMAZE) 50 mcg/mL injection 50 mcg 50 mcg, Intravenous, ONCE, 1 dose, On Wed12/29/15 at 0930, Give 5 minutes prior to sheath removal, Post-op Given 12/29/2015 10:54 AM EDT 50 mcg ferrous sulfate tablet 325 mg 325 mg, Oral, 2 TIMES DAILY WITH MEALS, First dose (after last modification) on Wed12/29/15 at 0800, Until Discontinued, Discharge/Readmit Given 01/02/2016 8:29 AM EDT 325 mg gabapentin (NEURONTIN) capsule 100 mg 100 mg, Oral, NIGHTLY, First dose (after last modification) on Wed12/28/15 at 2100, Until Discontinued, Discharge/Readmit Given 01/01/2016 8:53 PM EDT 100 mg glipiZIDE (GLUCOTROL) tablet 10 mg 10 mg, Oral, 2 TIMES DAILY WITH MEALS, First dose on Wed12/29/15 at 1000, Until Discontinued Given 12/30/2015 5:49 PM EDT 10 mg glipiZIDE (GLUCOTROL) tablet 10 mg 10 mg, Oral, 2 TIMES DAILY WITH MEALS, First dose (after last modification) on Wed01/01/16 at 0800, Until Discontinued Given 01/02/2016 8:30 AM EDT 10 mg heparin 25,000 units in 250 mL 0.45% NaCl 950 Units/hr (9.5 mL/hr), Intravenous, CONTINUOUS, Starting on 12/28/15 at 2000, Until Wed12/29/15 at 1008, Discharge/Readmit New Bag 12/29/2015 7:47 AM EDT 950 Units/hr 9.5 mL/hr heparin 25,000 units in 250 mL 0.45% NaCl 1,050 Units/hr (10.5 mL/hr), Intravenous, CONTINUOUS, Starting on Wed12/29/15 at 2200, Until Wed12/31/15 at 1632, Start at 2200 12/29/15 if cath site okay. If not let MD and pharmacy know heparin not started. New Bag 12/30/2015 11:53 PM EDT 1,050 Units/hr 10.5 mL/hr HYDROcodone-acetaminophen (NORCO) 5-325 mg per tablet 1-2 Tab 1-2 Tablet, Oral, EVERY 6 HOURS PRN, Starting on 12/27/16 at 1949, Until Francine 01/02/16 at 1856, Pain, Begin with lowest dose unless otherwise directed. Reassess pain in one hour. If pain unrelieved, remainder of dose may be given to patient. Maximum adult dose of acetaminophen is 4000 mg from all sources in 24 hours. , Discharge/Readmit Given 01/02/2016 11:18 AM EDT 2 Tablets insulin aspart (NovoLOG) injection 1-10 Units 1-10 Units, Subcutaneous, 4 TIMES DAILY WITH MEALS, First dose (after last modification) on [facility] 12/28/15 at 2100, Until Discontinued, Medium dose algorithm: FSBS Additional Insulin NPO/Bedtime 121-149 1 units 0 units 150-199 2 units 1 units 200-250 4 units 2 units 251-300 6 units 3 units 301-350 8 units 4 units Greater than 350 10 units 5 units Notify physician if FSBS less than 50 or greater than 350. Do not use NPO dosing If patient receiving TPN or tube feeds. Correction insulin doses must be by at least 3 hours. Waste Sort Code = BKC, Discharge/Readmit Given 01/01/2016 12:57 PM EDT 1 Units lactated ringers infusion Intravenous, at 100 mL/hr, PREPROCEDURE CONTINUOUS, Starting on Wed12/31/15 at 0645, Until Francine 01/02/16 at 1856, To be given in SDS/Pre-op Holding Area, Pre-op (Holding/SDS Meds) linagliptin (TRADJENTA) tablet 5 mg 5 mg, Oral, DAILY, First dose (after last modification) on Wed12/29/15 at 0900, Until Discontinued, Therapeutic interchange as the dipeptidly peptidase-4 (DPP-4) inhibitor of choice., Discharge/Readmit Given 01/02/2016 8:29 AM EDT 5 mg lisinopril (PRINIVIL;ZESTril) tablet 5 mg 5 mg, Oral, DAILY, First dose on Wed12/29/15 at 1000, Until Discontinued, +++ACEI Medication+++ Hold for SBP less than 100 Given 01/02/2016 8:29 AM EDT 5 mg metoprolol (LOPRESSOR) tablet 25 mg 25 mg, Oral, 2 TIMES DAILY, First dose (after last modification) on Wed12/31/15 at 2100, Until Discontinued, Hold for SBP less than 100 or pulse less than 60, Discharge/Readmit Given 01/02/2016 8:30 AM EDT 25 mg metoprolol (LOPRESSOR) tablet 50 mg 50 mg, Oral, 2 TIMES DAILY, First dose (after last modification) on [facility] 12/28/15 at 2100, Until Discontinued, Discharge/Readmit Given 12/31/2015 8:34 AM EDT 50 mg miconazole (MICATIN) 2 % powder Topical, EVERY 12 HOURS SCHEDULED (2 times per day), First dose on [place] 12/29/15 at 1145, Until Discontinued, Application site: folds Given 01/02/2016 8:33 AM EDT miconazole (MICATIN) 2 % powder Topical, PRN, Starting on [place] 12/29/15 at 1133, Until Francine 01/02/16 at 1856, Wound Care, Application site: folds ondansetron (ZOFRAN) 4 mg/2 mL injection 4 mg 4 mg, Intravenous, EVERY 6 HOURS PRN, Starting on Wed12/28/15 at 1949, Until Wed12/31/15 at 1653, Nausea, Discharge/Readmit Given 12/29/2015 11:17 AM EDT 4 mg ondansetron (ZOFRAN) 4 mg/2 mL injection 4 mg 4 mg, Intravenous, EVERY 6 HOURS PRN, Starting on Wed12/31/15 at 1647, Until Wed01/02/16 at 1856, Nausea, Vomiting, Post-op oxyCODONE-acetaminophen (PERCOCET) 5-325 mg per tablet 1-2 Tab 1-2 Tablet, Oral, EVERY 4 HOURS PRN, Starting on Wed12/31/15 at 1647, Until Wed01/02/16 at 1856, Pain, Pain Unrelieved by Oral Non-Opioid Therapy, Begin with lowest dose unless otherwise directed. Reassess pain in one hour. If pain unrelieved, remainder of dose may be given to patient. Maximum adult dose of acetaminophen is 4000 mg from all sources in 24 hours. , Post-op pantoprazole (PROTONIX) tablet 40 mg 40 mg, Oral, 2 TIMES DAILY, First dose (after last modification) on [facility] [place] 12/28/15 at 2100, Until Discontinued, Do not crush or chew, Discharge/Readmit Given 01/02/2016 8:29 AM EDT 40 mg risperiDONE (RisperDAL) tablet 2 mg 2 mg, Oral, NIGHTLY, First dose (after last modification) on 12/28/15 at 2100, Until Discontinued, Discharge/Readmit Given 01/01/2016 8:53 PM EDT 2 mg roPINIRole (REQUIP) tablet 1.5 mg 1.5 mg, Oral, NIGHTLY, First dose (after last modification) on Wed12/28/15 at 2100, Until Discontinued, Discharge/Readmit Given 01/01/2016 8:53 PM EDT 1.5 mg sodium chloride 0.9% syringe 10 mL 10 mL, Intravenous, EVERY 8 HOURS SCHEDULED (3 times per day), First dose (after last modification) on Wed12/28/15 at 2200, Until Discontinued, Flush with 10 mL saline for saline locked CENTRAL line/PICC/Dialysis pigtail lock maintenance., Discharge/Readmit Given 12/30/2015 6:18 AM EDT 10 mL sodium chloride 0.9% syringe 10 mL 10 mL, Intravenous, EVERY 8 HOURS SCHEDULED (3 times per day), First dose on Wed01/01/16 at 0900, Until Discontinued, Flush PICC q8h when not in use Given 01/02/2016 6:16 AM EDT 10 mL sodium chloride 0.9% syringe 10-20 mL 10-20 mL, Intravenous, PRN, Starting on Wed01/01/16 at 0849, Until Francine 01/02/16 at 1856, Line Care, Flush with 10ml after medication administration, 20ml prior to blood sampling with TPN, 20ml prior to restarting IV's and 20ml after blood draws sodium chloride 0.9% syringe Intravenous, EVERY 8 HOURS SCHEDULED (3 times per day), First dose on Wed12/31/15 at 1700, Until Discontinued, Flush with 3-5 mL saline for PERIPHERAL saline lock maintenance. Given 01/01/2016 5:52 AM EDT 10 mL torsemide (DEMADEX) tablet 10 mg 10 mg, Oral, 2 TIMES DAILY, First dose on Wed12/29/15 at 1000, Until Discontinued Given 12/30/2015 9:53 AM EDT 10 mg venlafaxine (EFFEXOR-XR) XR capsule 300 mg 300 mg, Oral, NIGHTLY, First dose (after last modification) on 12/28/15 at 2100, Until Discontinued, Discharge/Readmit Given 01/01/2016 8:53 PM EDT 300 mg documented in this encounter Discontinued Medications Medication Sig Discontinue Reason Start Date End Da te torsemide (DEMADEX) 10 mg Oral Tablet Take 10 mg by mouth 2 times daily. 01/02/2016 documented as of this encounter Active and Recently Administered Medications Times are shown in EDT. Scheduled Medication Order 12/31/2015 01/01/2016 01/02/2016 amitriptyline (ELAVIL) tablet 75 mg 75 mg, Oral, NIGHTLY, First dose on 12/29/15 at 2100, Until Discontinued 2204 (Given - Provider: Roslyn Hinkle RN) 2053 (Given - Provider: nAu Aguero RN) apixaban (ELIQUIS) tablet 5 mg 5 mg, Oral, 2 TIMES DAILY, First dose on 12/31/15 at 2230, Until Discontinued 2205 (Given - Provider: Roslyn Hinkle RN) 812 (Given - Provider: Lia Hendricks RN)2053 (Given - Provider: Anu Aguero, ROLF) 08 (Given - Provider: Lia Hendricks, ROLF) ARIPiprazole (ABILIFY) tablet 30 mg 30 mg, Oral, DAILY, First dose (after last modification) on 12/29/15 at 0900, Until Discontinued, Discharge/Readmit 0834 (Given - Provider: Anu Aguero RN) 0813 (Given - Provider: Lia Hendricks RN) 0829 (Given - Provider: Lia Hendricks, ROLF) aspirin EC tablet 81 mg 81 mg, Oral, DAILY, First dose on 12/30/15 at 0900, Until Discontinued, Post-op 0834 (Given - Provider: Anu Aguero RN) 0813 (Given - Provider: Lia Hendricks RN) 0829 (Given - Provider: Lia Hendricks, ROLF) atorvastatin (LIPITOR) tablet 20 mg 20 mg, Oral, NIGHTLY, First dose on 12/30/15 at 2100, Until Discontinued 2205 (Given - Provider: Roslyn Hinkle RN) 2052 (Given - Provider: Anu Aguero RN) ferrous sulfate tablet 325 mg 325 mg, Oral, 2 TIMES DAILY WITH MEALS, First dose (after last modification) on Wed12/29/15 at 0800, Until Discontinued, Discharge/Readmit 0834 (Given - Provider: Anu Aguero RN)180 (Given - Provider: Anu Aguero RN) 08 (Given - Provider: Lia Hendricks, ROLF)182 (Given - Provider: Lia Hendricks RN) 08 (Given - Provider: Lia Hendricks RN) gabapentin (NEURONTIN) capsule 100 mg 100 mg, Oral, NIGHTLY, First dose (after last modification) on 12/28/15 at 2100, Until Discontinued, Discharge/Readmit 2205 (Given - Provider: Roslyn Hinkle RN) 2052 (Given - Provider: Anu Aguero RN) glipiZIDE (GLUCOTROL) tablet 10 mg 10 mg, Oral, 2 TIMES DAILY WITH MEALS, First dose (after last modification) on Wed01/01/16 at 0800, Until Discontinued 812 (Given - Provider: Lia Hendricks RN)1821 (Given - Provider: Lia Hendricks RN) 08 (Given - Provider: Lia Hendricks RN) insulin aspart (NovoLOG) injection 1-10 Units 1-10 Units, Subcutaneous, 4 TIMES DAILY WITH MEALS, First dose (after last modification) on 12/28/15 at 2100, Until Discontinued, Medium dose algorithm: FSBS Additional Insulin NPO/Bedtime 121-149 1 units 0 units 150-199 2 units 1 units 200-250 4 units 2 units 251-300 6 units 3 units 301-350 8 units 4 units Greater than 350 10 units 5 units Notify physician if FSBS less than 50 or greater than 350. Do not use NPO dosing If patient receiving TPN or tube feeds. Correction insulin doses must be by at least 3 hours. Waste Sort Code = BKC, Discharge/Readmit 0800 (Not Given - Provider: Anu Aguero RN - Reason: Order parameters not met)1200 (Not Given - Provider: Anu Aguero RN - Reason: Order parameters not met)1800 (Not Given - Provider: Anu Alma Neace, RN - Reason: Order parameters not met)2100 (Not Given - Provider: Roslyn Hinkle RN - Reason: Order parameters not met) 0800 (Not Given - Provider: Lia Hendricks RN - Reason: Order parameters not met)1257 (Given - Provider: Lia Hendricks RN)1800 (Not Given - Provider: Lia Hendricks RN - Reason: Order parameters not met - Comment: [phone] (Not Given - Provider: Anu Aguero RN - Reason: Order parameters not met) 0822 (Not Given - Provider: Lia Hendricks RN - Reason: Order parameters not met)1200 (Not Given - Provider: Lia Hendricks RN - Reason: Patient/family declined) linagliptin (TRADJENTA) tablet 5 mg 5 mg, Oral, DAILY, First dose (after last modification) on Wed12/29/15 at 0900, Until Discontinued, Therapeutic interchange as the dipeptidly peptidase-4 (DPP-4) inhibitor of choice., Discharge/Readmit 0900 (Not Given - Provider: Anu Aguero RN - Reason: Other - Comment: NPO after clear liquid breakfast) 08 (Given - Provider: Lia Hendricks RN) 08 (Given - Provider: Lia Hendricks RN) lisinopril (PRINIVIL;ZESTril) tablet 5 mg 5 mg, Oral, DAILY, First dose on Wed12/29/15 at 1000, Until Discontinued, +++ACEI Medication+++ Hold for SBP less than 100 0834 (Given - Provider: Anu Aguero RN) 0813 (Given - Provider: Lia Hendricks RN) 08 (Given - Provider: Lia Hendricks RN) metoprolol (LOPRESSOR) tablet 25 mg 25 mg, Oral, 2 TIMES DAILY, First dose (after last modification) on Wed12/31/15 at 2100, Until Discontinued, Hold for SBP less than 100 or pulse less than 60, Discharge/Readmit 2206 (Given - Provider: Roslyn Hinkle RN) 08 (Given - Provider: Lia Hendricks RN)2052 (Given - Provider: Anu Aguero RN) 08 (Given - Provider: Lia Hendricks RN) metoprolol (LOPRESSOR) tablet 50 mg (CANCELED) 50 mg, Oral, 2 TIMES DAILY, First dose (after last modification) on 12/28/15 at 2100, Until Discontinued, Discharge/Readmit 0834 (Given - Provider: Anu Aguero, ROLF) miconazole (MICATIN) 2 % powder Topical, EVERY 12 HOURS SCHEDULED (2 times per day), First dose on Wed12/29/15 at 1145, Until Discontinued, Application site: [facility] 0837 (Given - Provider: Anu Aguero RN)2206 (Given - Provider: Roslyn Hinkle RN) 814 (Given - Provider: Lia Hendricks, ROLF)2053 (Given - Provider: Anu Aguero, ROLF) 832 (Given - Provider: Lia Hendricks, ROLF) pantoprazole (PROTONIX) tablet 40 mg 40 mg, Oral, 2 TIMES DAILY, First dose (after last modification) on 12/28/15 at 2100, Until Discontinued, Do not crush or chew, Discharge/Readmit 0834 (Given - Provider: Anu Aguero RN)220 (Given - Provider: Roslyn Hinkle RN) 08 (Given - Provider: Lia Hendricks, ROLF)2052 (Given - Provider: Anu Aguero, ROLF) 08 (Given - Provider: Lia Hendricks, ROLF) risperiDONE (RisperDAL) tablet 2 mg 2 mg, Oral, NIGHTLY, First dose (after last modification) on 12/28/15 at 2100, Until Discontinued, Discharge/Readmit 2206 (Given - Provider: Roslyn Hinkle RN) 2052 (Given - Provider: Anu Aguero, ROLF) roPINIRole (REQUIP) tablet 1.5 mg 1.5 mg, Oral, NIGHTLY, First dose (after last modification) on 12/28/15 at 2100, Until Discontinued, Discharge/Readmit 2206 (Given - Provider: Roslyn Hinkle RN) 2052 (Given - Provider: Anu Aguero, ROLF) sodium chloride 0.9% syringe 10 mL 10 mL, Intravenous, EVERY 8 HOURS SCHEDULED (3 times per day), First dose on Wed01/01/16 at 0900, Until Discontinued, Flush PICC q8h when not in use 0900 (Not Given - Provider: Lia Hendricks RN - Reason: Contraindicated - Comment: given at 0552)1501 (Given - Provider: Lia Hendricks RN)1502 (Given - Provider: Lia Hendricks, RN)2343 (Given - Provider: Anu Aguero, ROLF)2344 (Given - Provider: Anu Aguero, ROLF) 0615 (Given - Provider: Anu Aguero RN - Comment: red port)0616 (Given - Provider: Anu Aguero RN - Comment: purple port flushed)1400 (Not Given - Provider: Lia Hendricks RN - Reason: Loss of IV access - Comment: pt d/c'd Home) sodium chloride 0.9% syringe (CANCELED) Intravenous, EVERY 8 HOURS SCHEDULED (3 times per day), First dose on Wed12/31/15 at 1700, Until Discontinued, Flush with 3-5 mL saline for PERIPHERAL saline lock maintenance. 180 (Given - Provider: Anu Aguero RN)2207 (Given - Provider: Roslyn Hinkle RN) 0552 (Given - Provider: Charity Perry RN) venlafaxine (EFFEXOR-XR) XR capsule 300 mg 300 mg, Oral, NIGHTLY, First dose (after last modification) on 12/28/15 at 2100, Until Discontinued, Discharge/Readmit 220 (Given - Provider: Roslyn Hinkle RN) 2052 (Given - Provider: Anu Aguero, ROLF) Continuous Medication Order 12/31/2015 01/01/2016 01/02/2016 0.9 % NaCl infusion (CANCELED) Intravenous, at 50 mL/hr, CONTINUOUS, Starting on Wed12/30/15 at 1200, Until Wed01/01/16 at 1222 0149 (New Bag - Provider: Patricia Mathew RN)1233 (Rate/Dose Change - Provider: Anu Aguero, ROLF) 0802 (New Bag - Provider: Lia Hendricks, ROLF)1257 (Stopped - Provider: Lia Hendricks RN) PRN Medication Order 12/31/2015 01/01/2016 01/02/2016 0.45 % NaCl infusion (CANCELED) Intravenous, at 30 mL/hr, PREPROCEDURE CONTINUOUS, Starting on Wed12/31/15 at 0645, Until Wed01/01/16 at 0848, Administer 1 hour prior to procedure in left arm with 20 gauge or larger IV catheter, Pre-op (Floor Meds) 1358 (New Bag - Provider: Karly Ames, RN)1627 (Anesthesia Volume Adjustment - Provider: Alyx Solo CRNA) 0759 (Stopped - Provider: Lia Hendricks, ROLF) acetaminophen (OFIRMEV) infusion 1,000 mg 1,000 mg, Intravenous, EVERY 6 HOURS PRN, Starting on 12/28/15 at 1949, Until Francine 01/02/16 at 1856, Pain, For Mild to Moderate Pain if oral route not available, Administer over 15 Minutes, Maximum adult dose of acetaminophen is 4000 mg from all sources in 24 hours. , Discharge/Readmit acetaminophen (TYLENOL) tablet 650 mg 650 mg, Oral, EVERY 4 HOURS PRN, Starting on Wed12/31/15 at 1647, Until Francine 01/02/16 at 1856, Pain, Headaches, Maximum adult dose of acetaminophen is 4000 mg from all sources in 24 hours. , Post-op atropine injection 0.5 mg 0.5 mg, Intravenous, PRN, Starting on Wed12/29/15 at 0920, Until Francine 01/02/16 at 1856, Symptomatic bradycardia, emergency treatment, Administer IV push for symptomatic bradycardia, may repeat every 3-5 minutes to total of 3 mg. dextrose 50 % solution 25 g 25 g, Intravenous, PRN, Starting on Wed12/29/15 at 0920, Until Francine 01/02/16 at 1856, Low blood sugar, for emergency treatment of profound hypoglycemia, May repeat in 15 minutes. VESICANT dextrose 50 % solution 25 mL 25 mL, Intravenous, PRN, Starting on 12/28/15 at 1949, Until Francine 01/02/16 at 1856, Low blood sugar, If FSBS <70 mg/dl and patient cannot take orally, Check FSBS every 15 minutes and repeat 25 mL of D50 IV push and notify physician if FSBS <70 mg/dl VESICANT , Discharge/Readmit EPINEPHrine injection 1 mg 1 mg, Intravenous, PRN, Starting on Wed12/29/15 at 0920, Until Wed01/02/16 at 1856, Ventricular fibrillation, Emergency order for V-FIB or Pulseless V-TACH, Emergency order for V-FIB or Pulseless V-TACH, Asystole, PEA. VESICANT glucagon (human recombinant) (GLUCAGEN) injection 1 mg 1 mg, Intramuscular, PRN, Starting on 12/28/15 at 1949, Until Francine 01/02/16 at 185, Low blood sugar, If FSBS less than 70 mg/dl, patient cannot take orally and without IV access, If patient is without IV access, give Glucagon 1 mg Intramuscularly, insert IV and call physician., Discharge/Readmit HYDROcodone-acetaminophe n (NORCO) 5-325 mg per tablet 1-2 Tab 1-2 Tablet, Oral, EVERY 6 HOURS PRN, Starting on Wed12/28/15 at 1949, Until Francine 01/02/16 at 185, Pain, Begin with lowest dose unless otherwise directed. Reassess pain in one hour. If pain unrelieved, remainder of dose may be given to patient. Maximum adult dose of acetaminophen is 4000 mg from all sources in 24 hours. , Discharge/Readmit 1326 (Given - Provider: Lia Hendricks, ROLF) 1118 (Given - Provider: Lia Hendricks, ROLF) hydrOXYzine (VISTARIL) capsule 50 mg 50 mg, Oral, 3 TIMES DAILY PRN, Starting on Wed12/29/15 at 0953, Until Wed01/02/16 at 1856, Itching, Therapeutic Interchange for hydrOXYzine hcl 50mg tab lactated ringers infusion Intravenous, at 100 mL/hr, PREPROCEDURE CONTINUOUS, Starting on Wed12/31/15 at 0645, Until Wed01/02/16 at 1856, To be given in SDS/Pre-op Holding Area, Pre-op (Holding/SDS Meds) metoclopramide HCl (REGLAN) injection 10 mg 10 mg, Intravenous, EVERY 6 HOURS PRN, Starting on Wed12/29/15 at 0920, Until Wed01/02/16 at 1856, Nausea, Post-op miconazole (MICATIN) 2 % powder Topical, PRN, Starting on 12/29/15 at 1133, Until Francine 01/02/16 at 1856, Wound Care, Application site: folds ondansetron (ZOFRAN) 4 mg/2 mL injection 4 mg 4 mg, Intravenous, EVERY 6 HOURS PRN, Starting on Wed12/31/15 at 1647, Until Francine 01/02/16 at 1856, Nausea, Vomiting, Post-op oxyCODONE-acetaminophen (PERCOCET) 5-325 mg per tablet 1-2 Tab 1-2 Tablet, Oral, EVERY 4 HOURS PRN, Starting on Wed12/31/15 at 1647, Until Francine 01/02/16 at 1856, Pain, Pain Unrelieved by Oral Non-Opioid Therapy, Begin with lowest dose unless otherwise directed. Reassess pain in one hour. If pain unrelieved, remainder of dose may be given to patient. Maximum adult dose of acetaminophen is 4000 mg from all sources in 24 hours. , Post-op sodium chloride 0.9% syringe 10-20 mL 10-20 mL, Intravenous, PRN, Starting on Wed01/01/16 at 0849, Until Francine 01/02/16 at 1856, Line Care, Flush with 10ml after medication administration, 20ml prior to blood sampling with TPN, 20ml prior to restarting IV's and 20ml after blood draws documented in this encounter Orders Medications Ordered That Gaurav ht Not Have Been Administered Count Last Ordered Date First Ordered Date sodium chloride 0.9% syringe 10-20 mL 1 acetaminophen (TYLENOL) tablet 650 mg 4 12/28/2015 ondansetron (ZOFRAN) 4 mg/2 mL injection 4 mg 2 12/31/2015 ondansetron (ZOFRAN-ODT) dis integrating tablet 8 mg 1 12/31/2015 oxyCODONE-acetaminophen (PER COCET) 5-325 mg per tablet 1-2 Tab 2 12/31/2015 12/29/2015 sodium chloride 0.9% IV line flush 20-50 mL 2 12/31/2015 12/28/2015 sodium chloride 0.9% syringe 2 12/31/2015 12/28/2015 lactated ringers infusion 1 12/30/2015 0.9 % NaCl infusion 1 12/29/2015 ARIPiprazole (ABILIFY) tablet 30 mg 1 12/28 aspirin EC tablet 81 mg 1 12/29/2015 atropine injection 0.5 mg 1 12/29/2015 dextrose 50 % solution 25 g 1 12/29/2015 EPINEPHrine injection 1 mg 1 12/29/2015 fentaNYL (SUBLIMAZE) 50 mcg/mL injection 1 12/29/2015 fentaNYL (SUBLIMAZE) 50 mcg/ mL injection 50 mcg 1 12/29/2015 ferrous sulfate tablet 325 mg 1 12/29/2015 gabapentin (NEURONTIN) capsule 100 mg 1 heparin (porcine) injection 1 12/29/2015 hydrOXYzine (VISTARIL) capsule 50 mg 1 12/07 linagliptin (TRADJENTA) tablet 5 mg 1 12/28 LORazepam (ATIVAN) tablet 1 mg 1 12/29/2015 metoclopramide HCl (REGLAN) injection 10 mg 1 12/29/2015 miconazole (MICATIN) 2 % powder 1 6 midazolam (VERSED) injection 1 12/29/2015 pantoprazole (PROTONIX) tablet 40 mg 1 12/07 risperiDONE (RisperDAL) tablet 2 mg 1 12/28 roPINIRole (REQUIP) tablet 1.5 mg 1 016 venlafaxine (EFFEXOR-XR) XR capsule 300 mg 1 12/29/2015 acetaminophen (OFIRMEV) infusion 1,000 mg 1 12/28/2015 acetaminophen (TYLENOL) suppository 650 mg 1 12/28/2015 dextrose 50 % solution 25 mL 1 12/28/2015 glucagon (human recombinant) (GLUCAGEN) injection 1 mg 1 12/28/2015 nitroGLYCERIN (NITROGLYN) 2 % ointment 1 Inch 1 12/28/2015 ondansetron (ZOFRAN) tablet 4 mg 1 12/28/19 16 Lab Orders Without Results Count Last Ordered D ate First Ordered Date BASIC METABOLIC PANEL 1 12/29/2015 Procedures Count Last Ordered Date First Orde red Date CASE REQUEST GOLD BEATER 1 12/30/2015 Nursing Count Last Ordered Date First Orde red Date BEDREST 1 12/31/2015 CLAY CATHETER - DISCONTINUE 1 12/31/2015 MISCELLANEOUS NURSING CARE ORDER (SPECIFY) 1 12/31/2015 PERFORM ACT 1 12/31/2015 POSITIONING INSTRUCTION 1 12/31/2015 ADMISSION 1 12/28/2015 Consult Count Last Ordered Date First Orde red Date HOME HEALTH ORDERS (FACE TO FACE ENCOUNTER) 1 01/02/2016 IP CONSULT TO SOCIAL WORK 2 01/01/2016 IP CONSULT TO PHARMACY 2 12/29/201512/27 PT Count Last Ordered Date First Orde red Date IP CONSULT TO PHYSICAL THERAPY 1 12/29/2015 Transfer Count Last Ordered Date First Orde red Date BED REQUEST 2 12/29/2015 12/28/2015 documented in this encounter Care Teams Coffee Shop Aide Relationship Specialty Start Date End Date Delmisjillian Alessandra August, [address] [facility] [address] [place] [address] PCP - General Nurse Practitioner-Family 08/29/14 09/20/16 documented as of this encounter
--- OUTSIDE RECORDS SUMMARY | 2024-02-16 15:00 | XMS_ITS | Encounter Summary ---
Author Organization [place] [address] Care Team Providers Care Assistant Bookkeeper Name Role Phone Alessandra Trevino August Primary Care Provider + Reason for Visit * Reason Onset Date Comments Other 02/21/2016 Encounter Details Date Type Department Care Team (Late st Contact Info) Description 02/21/2016 Telephone [facility] [address] [facility] [address] [place] [address] Bharti Wilcox Other Social History Tobacco Use Types Packs/Day [...] encounter Miscellaneous Notes * Telephone Encounter - Bharti Wilcox - 02/21/2016 9:38 AM EST Pt was scheduled for a hospital f/u from an AFL ablation per Dr Tee appt [place] with LOGISTICS TEAM LEAD Kendrick Martin on 02/11/16 pt did ot show up for appt. Msg was left on 02/19/16 at 3pm at the [facility] to return call to reschedule. We have not received a call to reschedule the appt. documented in this encounter Plan of Treatment Not on file documented as of this encounter Visit Diagnoses Not on filedocumented in this encounter Care Teams Assistant Bookkeeper Relationship Specialty Start Date End Date Alessandra Trevino August, [address] [facility] [address] [place] [address] PCP - General Nurse Practitioner-Family 08/29/14 09/20/16 documented as of this encounter
--- OUTSIDE RECORDS SUMMARY | 2024-02-16 15:00 | XMS_ITS | Encounter Summary ---
Author Organization [place] [address] Care Team Providers Care Marketing Content Manager Name Role Phone Alessandra Trevino August Primary Care Provider + Reason for Visit * Auth/Cert/Inpt Specialty Diagnoses / Procedures Referred By Arsh t Referred To Contact Diagnoses Chest pain Chest pain Chest Pain Referral ID Status Reason Start Date Expiration Date Visits Re quested Visits Authorized [id number] 1 1 Encounter Details Date Type Department Care Team (Latest Contact Info) Description 06/22/2016 6:18 PM EDT - 06/24/2016 6:08 PM EDT Hospital Encounter WILL [facility] [address] [place] [address] Campbell Huston MD [address] [place] [address] Discharge Disposition: [facility] Care Social History Tobacco Use Types Packs/Day [...] Sign Reading Time Taken Comments Blood Pressure 142/55 06/24/2016 10:28 AM EDT Pulse 76 06/24/2016 10:28 AM EDT Temperature 36.7 ??C (98 ??F) 06/24/2016 7:46 AM EDT Respiratory Rate 18 06/24/2016 7:46 AM EDT Oxygen Saturation 94% 06/24/2016 7:46 AM EDT Inhaled Oxygen Concentration - - Weight 115.7 kg (255 lb 1.6 oz) 06/23/2016 5:28 AM EDT Height 172.7 cm (5' 8 ) 06/22/2016 8:00 PM EDT Body Mass Index 38.79 06/22/2016 8:00 PM EDT documented in this encounter Discharge Summaries * Campbell Huston MD - 06/24/2016 11:52 AM EDT [facility] Discharge Summary Patient Name: Faby Palm : 1950 Admit Date: 06/22/2016 Discharge Date: 06/24/2016 Admitting Physician: Campbell Huston MD Discharge Physician: Campbell Huston MD Reason for Hospitalization: Active Hospital Problems Atrial flutter (HCC) *Precordial pain Hemiparesis affecting left side as late effect of stroke (HCC) Essential hypertension Peripheral motor neuropathy Hospital Course/Significant Findings: patient was admitted for evaluation of atypical chest pain, there was no evidence of PE, seen by cardiology, conservative mgt advised. Started on imdur, ranexa. OP f/u PCP Not on BB given hx of hypotension Not on AC given hx of fall Discharge Exam: NAD, comfortable Clear lungs, no wheezing RRR, no murmur Soft, NT +BS No LE edema Discharge Diagnoses: atypiccal Precordial pain Hx of PAF, post ablation CAD HLD HTN Obesity Condition at Discharge: stable Disposition: Home Discharge Medications:: Medication List START taking these medications isosorbide mononitrate 60 mg Tb24 Dose: 60 mg Qty: 30 Tab Refills: 1 Commonly known as: IMDUR 60 mg, Oral, Daily ranolazine 500 mg Tb12 Dose: 500 mg Qty: 60 Tab Refills: 1 Commonly known as: RANEXA 500 mg, Oral, Q12H LIZZETH CHANGE how you take these medications hydrOXYzine 25 mg Tab Dose: 25 mg Refills: 0 Commonly known as: ATARAX What changed: Another medication with the same name was removed. Continue taking this medication, and follow the directions you see here. pantoprazole 40 mg Tbec Dose: 40 mg Qty: 30 Tab Refills: 1 Commonly known as: PROTONIX 40 mg, Oral, Daily What changed: when to take this CONTINUE taking these medications acetaminophen 325 mg Tab Dose: 650 mg Refills: 0 Commonly known as: TYLENOL amitriptyline 75 mg Tab Dose: 75 mg Refills: 0 Commonly known as: ELAVIL ARIPiprazole 10 mg Tab Dose: 30 mg Refills: 0 Commonly known as: ABILIFY aspirin 81 mg Tbec Dose: 81 mg Refills: 0 atorvastatin 20 mg Tab Dose: 20 mg Qty: 30 Tab Refills: 1 Commonly known as: LIPITOR 20 mg, Oral, Nightly ferrous sulfate 325 mg (65 mg iron) Tab Dose: 325 mg Qty: 60 Tab Refills: 5 325 mg, Oral, BID WM gabapentin 100 mg Cap Dose: 100 mg Refills: 0 Commonly known as: NEURONTIN glipiZIDE 10 mg Tab Dose: 10 mg Refills: 0 Commonly known as: GLUCOTROL NIFEdipine 90 mg Tr24 Dose: 90 mg Qty: 30 Tab Refills: 1 Commonly known as: PROCARDIA XL 90 mg, Oral, Daily risperiDONE 1 mg Tab Dose: 2 mg Refills: 0 Commonly known as: RisperDAL roPINIRole 0.5 mg Tab Dose: 1.5 mg Refills: 0 Commonly known as: REQUIP sitaGLIPtin 100 mg Tab Dose: 100 mg Refills: 0 Commonly known as: JANUVIA venlafaxine 150 mg Cp24 Dose: 300 mg Refills: 0 Commonly known as: EFFEXOR-XR STOP taking these medications apixaban 5 mg Tab Commonly known as: ELIQUIS metoprolol 25 mg Tab Commonly known as: LOPRESSOR sertraline 100 mg Tab Commonly known as: ZOLOFT torsemide 10 mg Tab Commonly known as: DEMADEX ASK your doctor about these medications lisinopril 10 mg Tab Dose: 5 mg Refills: 0 Commonly known as: PRINIVIL;ZESTril Where to Get Your Medications These medications were sent to [id number] [place] [address] - [address] [facility] -[phone] [address] [facility] [address] ??? atorvastatin 20 mg Tab ??? isosorbide mononitrate 60 mg Tb24 ??? NIFEdipine 90 mg Tr24 ??? pantoprazole 40 mg Tbec ??? ranolazine 500 mg Tb12 Follow Up: Alessandra Trevino [place], OIL BURNER TECHNICIAN [address] [facility] [address] Kaushik Perea MD [address] [place] [address] [place] [address] Signed: Campbell Huston MD 06/24/2016 11:52 AM documented in this encounter Discharge Instructions * Attachments The following attachments cannot be sent through Care Everywhere. * HEART FAILURE, XHMO-AN-BSCB (ICELANDIC) * ISOSORBIDE MONONITRATE EXTENDED-RELEASE TABLETS (ICELANDIC) * RANOLAZINE ER - ORAL (ICELANDIC) documented in this encounter Medications at Time [...] mouth 2 times daily. Indications: ANXIETY 02/23/2017 NIFEdipine (PROCARDIA XL) 90 mg Oral Tablet [...] Refills Last Filled Start Date End Date ranolazine (RANEXA) 500 mg Oral Tablet Sustained Release 12 hr Take 1 Tab by mouth every 12 hours. 60 Tab 1 06/24/2016 09/22/2016 pantoprazole (PROTONIX) 40 mg Oral Tablet, Delayed Release (E.C.) Take 1 Tab by mouth daily. 30 Tab 1 06/24/2016 11/26/2016 NIFEdipine (PROCARDIA XL) 90 mg Oral Tablet Extended Rel 24 hr Take 1 Tab by mouth daily. 30 Tab 1 06/24/2016 05/12/2017 isosorbide mononitrate (IMDUR) 60 mg Oral Tablet Sustained Release 24 hr Take 1 Tab by mouth daily. 30 Tab 1 06/24/2016 09/22/2016 atorvastatin (LIPITOR) 20 mg Oral Tablet Take 1 Tab by mouth nightly. 30 Tab 1 06/24/2016 09/22/2016 documented in this encounter Discharge Disposition Disposition Code Departure Means Destination Comment s Manifold Operator Care Other [facility] documented in this encounter Progress Notes * Charity Moncada RN - 06/24/2016 1:11 PM EDT 06/24/16 1235 Discharge Planning Evaluation Actual Discharge Plan Final Note: patient on discharge to the [facility]. [facility] will provide transport this afternoon, sometime after 2pm. notified [facility] that patient will need to go to [address] [place] [address] in [place] as she will be arriving after 2pm. No further needs. Follow-up Follow-up Date 07/01/16 * Katelynn Skinner, ROLF - 06/24/2016 12:41 PM EDT Report called to Alissa at [facility]. IV removed with no complications, dressing c/d/i. Patient updated on plan of care. Aware of transport back to [place] and anxious to get back home. * Charity Moncada RN - 06/24/2016 10:42 AM EDT 06/24/16 1000 Discharge Planning Evaluation Actual Discharge Plan Discharge plan: CC received a call from Nilton at the [facility]- they are able to accept patient back at discharge. PT is recommending SNF, but patient is refusing at this time. CC continues to follow to arrange [facility] transport at discharge. Follow-up Follow-up Date 07/01/16 * Bello Cruz MD - 06/24/2016 10:00 AM EDT Images from the original note were not included. Cardiology Progress Note [facility] Bello Nash M.D. DOA: 06/22/2016 Hospital Day#: 0 Physician of Record: Campbell Huston MD SUBJECTIVE: Pt. Has no new complaints. Her chest discomfort has significantly improved, but has notresolved completely Tele: No significant arrhythmias. REVIEW OF SYSTEMS: NEGATIVE FOR: dyspnea, palpitations, dizziness, syncope, edema POSITIVE FOR: See subjective. Review of systems is otherwise negative. MEDICATIONS: ??? amitriptyline 75 mg Oral Nightly ??? ARIPiprazole 30 mg Oral Daily ??? aspirin 81 mg Oral Daily ??? atorvastatin 20 mg Oral Nightly ??? ferrous sulfate 325 mg Oral BID WM ??? gabapentin 100 mg Oral Nightly ??? glipiZIDE 10 mg Oral BID WM ??? isosorbide mononitrate 60 mg Oral Daily ??? miconazole Topical BID ??? NIFEdipine 90 mg Oral Daily ??? pantoprazole 40 mg Oral Daily ??? pneumococcal vaccine 0.5 mL Intramuscular ONCE ??? ranolazine 500 mg Oral 2 times per day ??? risperiDONE 2 mg Oral Nightly ??? roPINIRole 1.5 mg Oral Nightly ??? venlafaxine 300 mg Oral Nightly PHYSICAL EXAMINATION: Vitals: 06/23/16 2018 06/24/16 0015 06/24/16 0506 06/24/16 0746 BP: 145/89 145/89 150/65 124/73 BP Location: Left arm Right arm Left arm Right arm Patient Position: Sitting Semi Fowlers Semi Fowlers Semi Fowlers Pulse: 88 91 81 84 Resp: Temp: 97.9 ??F (36.6 ??C) 98 ??F (36.7 ??C) 97.8 ??F (36.6 ??C) 98 ??F (36.7 ??C) TempSrc: Oral Oral Oral Oral SpO2: 99% 97% 95% 94% Weight: Height: Body mass index is 38.79 kg/(m^2). Wt Readings from Last 3 Encounters: 06/23/16 255 lb 1.6 oz (115.7 kg) 06/22/16 271 lb (122.9 kg) 12/29/15 230 lb 3.2 oz (104.4 kg) Intake/Output Summary (Last 24 hours) at 06/24/16 1000 Last data filed at 06/23/16 1740 Gross per 24 hour Intake 595 ml Output 0 ml Net 595 ml CONSTITUTIONAL: Vital signs are noted. No apparent distress. Alert and oriented. RESPIRATORY: Respiratory effort is normal. Wheezes are absent. Rales are absent. Rhonchi are absent. CARDIOVASCULAR: Heart rate is noted above. Rhythm is regular. Murmurs are absent. Rubs are absent. S1 and S2 normal. S3 or S4 are absent. JVP is normal. No edema. Pulses are normal. GASTROINTESTINAL: Bowel sounds are normal. Abdomen is soft and non tender, non distended MUSCULOSKELETAL: Clubbing is absent. Cyanosis is absent. Range of motion is intact. SKIN: Warm and dry. No rashes PSYCHIATRIC: Mood is normal. Affect is normal. LABORATORY AND STUDIES: Lab Results Component Value Date NA 139 06/22/2016 NA 143 01/02/2016 NA 140 01/01/2016 K 4.2 06/22/2016 K 4.0 01/02/2016 K 4.3 01/01/2016 BUN 15 06/22/2016 BUN 17 01/02/2016 BUN 16 01/01/2016 CALCIUM 8.5 (L) 06/22/2016 CL 102 06/22/2016 CO2 23 06/22/2016 CREATININE 1.42 (H) 06/22/2016 CREATININE 1.25 01/02/2016 CREATININE 1.27 01/01/2016 GLU 200 (H) 06/22/2016 Lab Results Component Value Date WBC 9.9 06/22/2016 WBC 7.4 01/01/2016 WBC 7.6 12/31/2015 HGB 11.5 (L) 06/22/2016 HGB 10.8 (L) 01/01/2016 HGB 11.6 (L) 12/31/2015 HCT 34.3 (L) 06/22/2016 HCT 32.4 (L) 01/01/2016 HCT 35.4 (L) 12/31/2015 MCV 87.4 06/22/2016 PLT 150 06/22/2016 PLT 126 (L) 01/01/2016 PLT 145 12/31/2015 Lab Results Component Value Date TROPT <0.01 06/22/2016 TROPT <0.01 06/22/2016 TROPT <0.01 06/22/2016 Lab Results Component Value Date INR 1.03 12/28/2015 INR 1.08 12/28/2015 INR 1.02 12/26/2015 Lab Results Component Value Date CHOLESTEROL 177 09/09/2015 CHOLESTEROL 165 10/20/2014 HDL 35 (L) 09/09/2015 HDL 41 10/20/2014 LDLCALC 67 09/09/2015 LDLCALC 90 10/20/2014 TRIG 375 (H) 09/09/2015 TRIG 170 (H) 10/20/2014 Lab Results Component Value Date ALT 10 06/22/2016 AST 12 06/22/2016 GGT 49 (H) 09/09/2015 ALKPHOS 195 (H) 06/22/2016 Lab Results Component Value Date HGBA1C 6.1 09/09/2015 Lab Results Component Value Date TSH 3.090 12/27/2015 TSH 3.550 09/09/2015 TSH 2.200 04/02/2015 Lab Results Component Value Date BNP 210 06/22/2016 BNP 1172 (H) 12/26/2015 BNP 308 10/18/2014 ASSESSMENT AND PLAN: Chest pain - Troponins negative - EKG unchanged - CXR: no acute disease - VQ scan low probability It is possible that her symptoms come from Her known LAD lesion. She was started on isosorbide and Ranexa yesterday. If patient continues to have episodes of chest pain despite antianginals after a few weeks, she would probably need to get a repeat angiogram and PCI of her LAD. She had been on beta blockers, which were stopped likely due to bradycardia. Beta blockers usually have an antianginal effects. Continue aspirin and statin. Echocardiogram reviewed, no evidence of wall motion abnormalities or decreased EF. Her RVSP was mildly elevated. CAD - Cath (12/2015): 60-70% prox LAD with normal FFR ?? Paroxysmal Atrial Fib/Flutter - S/p flutter ablation (12/2015) - Eliquis stopped due to falls per patient ?? Hypertension ?? Dyslipidemia - On statin ?? Mild Renal Insufficiency ?? H/o CVA ?? H/o Schizophrenia ?Patient appears to be doing well, I would suggest no further testing or changes from cardiology standpoint. She can be discharged today, as mentioned above if she is not feeling well over the next few weeks,we may reconsider repeat coronary angiogram. Bello Nash MD [facility] 06/24/2016 Thank you for allowing me to participate in this patient's care. Please do not hesitate to contact me with any questions This chart was completed using voice recognition technology and may contain unintended errors * Katelynn Skinner RN - 06/23/2016 2:58 PM EDT VSS per shift, oxygenation adequate on room air. Patient denies pain that morning but then this afternoon reports chest pressure and shortness of breath - nitro paste applied and patient reports improvement. Cardiology aware. Patient has been ambulating to restroom with standby assistance. Attempted to call [facility] with no answer or call back. Patient up to side of bed throughout shift, declines to sit in chair at this time. Updated on current treatment and plan of care. * Campbell Huston MD - 06/23/2016 2:47 PM EDT Images from the original note were not included. Admit Date: 06/22/2016 LOS: 0 days HPI: Faby Palm is a(n)65 y.o. female being followed for atypical chest pain, hx of PAF, recent left ankle fracture. Subjective: Seen today, no acute issues, eating. Feels a horse sitting on her chest Objective: I reviewed all labs, imaging studies and current inpatient medications as of this date Scheduled Meds: ??? amitriptyline 75 mg Oral Nightly ??? ARIPiprazole 30 mg Oral Daily ??? aspirin 81 mg Oral Daily ??? atorvastatin 20 mg Oral Nightly ??? ferrous sulfate 325 mg Oral BID WM ??? gabapentin 100 mg Oral Nightly ??? glipiZIDE 10 mg Oral BID WM ??? isosorbide mononitrate 60 mg Oral Daily ??? pneumococcal vaccine 0.5 mL Intramuscular ONCE ??? ranolazine 500 mg Oral 2 times per day ??? risperiDONE 2 mg Oral Nightly ??? roPINIRole 1.5 mg Oral Nightly ??? venlafaxine 300 mg Oral Nightly Continuous Infusions: Visit Vitals ??? BP (!) 149/95 (BP Location: Right arm, Patient Position: Sitting) ??? Pulse 66 ??? Temp 97.9 ??F (36.6 ??C) (Oral) ??? Resp 18 ??? Ht 5' 8 (1.727 m) ??? Wt 255 lb 1.6 oz (115.7 kg) ??? SpO2 95% ??? No ??? BMI 38.79 kg/m2 Patient not in acute distress Clear lungs RRR Soft +BS Cast left leg Nm Lung Ventilation Perfusion Result Date: 06/23/2016 NM LUNG VENTILATION PERFUSION. 06/23/2016 11:21 AM CLINICAL HISTORY: 65-year-old with chest pain. Elevated creatinine. -Chest pain, acute, PE suspected, intermed prob, negative D-dimer FINDINGS: Comparison: Chest radiograph dated June 22, 2016. No prior V/Q scans for comparison Patient inhaled 12.0mCi xenon-133 for ventilatory images. Furthermore, patient received 7.3 mCi technetium 99m MAA intravenously for perfusion images. Ventilatory images demonstrate relatively homogeneous distribution of the radiotracer throughout the lungs. Perfusion images demonstrate also demonstrates relatively homogeneous distribution of the radiotracer throughout the lungs. 1. Scintigraphic findings are low probability for pulmonary embolism. Assessment/Plan: Atypical chest pain. No ACS. V/Q low probability Echo pending Hx of CAD, prior LHC, mid LAD lesion. Noted imdur, ranexa added Hx of PAF- NSR, not on eliquis d/t fall Not on BB Hx of esophageal ring and esophogeal ulcer 03/2015 PPI Consider repeat EGD if sx persist Hx of schizophrenia Essential HTN Morbid obesity Recent left ankle fx, cast in place Possible discharge later if echo normal and if ok with cardiology Campbell Huston MD * Deena Jackson, PT STUDENT - 06/23/2016 1:59 PM EDT 06/23/16 1359 PT Subjective Note Type Evaluation Patient Room/Unit 445 PT Subjective Comments #1 Pt agreeable to therapy. Discharge Information Evaluation to serve as discharge summary if no further treatment provided before the facility discharge Admitting Diagnosis Chest pain Past Med Hx COPD, DDD, CHF, DM, HTN, CVA, atrial flutter Diagnostic Testing 06/22/16: XR chest-no acute disease; 06/23/16: nuclear medicine lung perfusion-lowprobability for PE Pain Screening PT/OT Patient Currently in Pain Yes Pain Rating 7 Pain Location Foot Pain Orientation Left Pain Intervention(s) Repositioned;Ambulation/Increased activity Cognition Overall Cognitive Status Needs continued assessment Arousal/Alertness Appropriate responses to stimuli Attention Span Appears intact Memory Appears intact Orientation Level Oriented X3;Pleasant and Cooperative Following Commands Follows all commands and directions without difficulty Safety Judgement Decreased awareness of safety techniques Awareness of Errors Decreased awareness of errors Problem Solving Assistance required to identify errors made Additional Comments Pt did not appear to be following NWB of LLE despite repeated cues. Pt responded appropriately to all questions/instructions throughout evalution. Precautions Therapy Precautions Yes Weight Bearing Status Non-weight bearing;Right lower extremity Precaution info given Weight bearing;To use call light to request assistance with all mobility Additional Comments Pt has a cast on L foot as well as an orthopedic shoe. Pt reports that she had plates put in following a fall several years ago and that the hardware has come lose. She states that her MD told her to wear the cast for 3 weeks, then he would fit her with a brace. [facility] staff has attempted to contact MD to clarify WB status but have been unsuccessful. [facility] staff is treating pt as NWB in the interim. Pt does not appear to be maintaining NWB status. Home Living/Prior Function Type of Home Facility Home Layout One level Number of Steps 0 Home Equipment None Level of Assistance Independent with functional transfers;Ambulatory in home;Needs assistance with ADLs;Needs assistance with homemaking Lives With Personal Care Additional Comments Pt lives at [facility] (personal care). She reports that she receives assistance with bathing, cleaning, and meals, but that she was previously independent with functional mobility within the facility. Pt states that facility staff will provide limited mobility assistance on a temporary basis (such as during illness) but that residents are generally expected to t/f and ambulate within the facility on their own. Coord/Sensation Assessed Grossly Intact/Normal Perception Perception Grossly intact/normal Observation Presentation Patient seated edge of bed Posture Endomorphic female Observation Bed Alarm;Outer Diameter Technician Vitals VSS on RA Additional Comments Pt frequently protrudes her tongue and rocks her upper body back and forth. UE Assessment LUE Assessment X Additional Comments Grossly 4/5. Pt reports L side has been weaker since her stroke (2009) RUE Assessment WFL LE Assessment LLE Assessment X LLE Additional Comments hip flexors 3+/5; knee flexors and extensors 4/5. Ankle not tested due to cast. RLE Assessment WFL Bed Mobility Additional Comments Pt seated EOB upon arrival. Transfers Sit to Stand Contact guard assist Stand to Sit Contact guard assist Gait Gait Contact guard assist Gait Distance (Feet) 10 Feet Assistive Device 2 Wheel walker Pattern Slow chhaya;Antalgic Weight Bearing Status Non-weight bearing;Unable to maintain weight bearing status Additional Comments Nsg is treating pt as NWB on LLE until they can clarify nature of her orthopedic injury and WB precautions with her MD. Pt did not appear to be maintaining NWB of LLE during gait despite frequent cues. Ambulation activities ceased due to inability to maintain NWB. Vitals VSS on RA AM PAC: How much help from another person does the patient currently need... turning from your back to your side while in a flat bed without using bedrails? 4 moving from lying on your back to sitting on the side of a flat bed without using bedrails? 4 moving to and from a bed to a chair? 3 standing up from a chair using your arms (e.g. wheelchair, or bedside chair)? 3 need to walk in hospital room? 2 climbing 3-5 steps with a railing? 1 AM PAC: BASIC MOBILITY SCORING AM PAC Moblity Raw Score 17 AM PAC Mobility CMS 0-100% Functional Percentage 43.83 AM PAC Mobility CMS G Code Modifier CK Balance Sitting Balance 3+/5 sits without UE support for 30 seconds or greater Standing Balance 2/5 indep, requires both UE support Exercise Exercise No Education Education To use call light to request assistance with all mobility;Role of Therapy;Safety with mobility;Cues for proper technique;Discharge planning;Up with assistance only;Precautions Patient Safety Patient Safety Patient seated edge of bed;Bed alarm activated Assessment Assessment Decreased gait;Decreased functional mobility;Decreased balance;Decreased activity tolerance ;Decreased endurance;Decreased Left Upper Extremity strength;Decreased Left Lower Extremity strength Prognosis Good;With continued PT s/p acute discharge Rationale for Skilled Therapy Fall Risk;Balance Deficits;Not safe with independent transfers;Not safe ambulating independently Goals Patient and/or Family Goal To return to [facility]. PT GOALS (Yes/No) Yes Add Goals Pt will perform Sit to Stand Supervision (to improve functional mobility) Pt Will Ambulate 11-30 feet;With 2 wheel walker;Supervision (while maintaining NWB to improve functional mobility) Pt Will Tolerate Exercise 11-15 reps;Independently (to improve LLE strength, cardiovascular endurance) Goal Formulation With patient Time for Goal Achievement 3-5 days Plan Treatment/Interventions Gait training;Functional transfer training;LE strengthening/ROM;Increase activity tolerance ;Endurance training PT Frequency 5-6x/week Recommendation PT Recommendation Short-term skilled PT;Rehab Additional PT discharge information Pt is not at her baseline level of mobility. She requires assistance with t/f and gait. She states that her personal care facility will provide limited, temporary assistance with mobility. If staff cannot provide assistance, she would benefit from skilled therapyto return to her baseline level of function in order to safely return to personal care facility. Time In / Time Out 1329/1345 IP PT Evaluation Minutes 8 IP PT Treatment Minutes 8 Cosign Entry reviewed and co-signed Cosigned by Bessie Carty, PT at 06/23/2016 3:06 PM EDT Associated attestation - Bessie Carty PT - 06/23/2016 3:06 PM EDT cosign * Charity Moncada RN - 06/23/2016 12:54 PM EDT 06/23/16 1245 Discharge Planning Evaluation Actual Discharge Plan Initial screen complete: discussed discharge plan with patient and she statesthat her plan is to return to the [facility] in [place]- patient will require [facility] ( ) for transport. CC sent clinicals via [employer] and placed a call to the [facility]- message left, awaiting return call. Patient states she will follow up with [facility] and utilizes [facility] in [place]. CC continues to follow to assist with transportation at discharge. Follow-up Follow-up Date 06/30/16 RRS Is patient score high risk on RRS score? No * Deena Jackson, PT STUDENT - 06/23/2016 10:56 AM EDT 06/23/16 1056 PT Subjective Note Type Evaluation Attempt Patient Room/Unit 445 PT Subjective Comments #1 Pt at nuclear medicine. PT Subjective Comments #2 Per charge nurse, pt is being treated as NWB on LLE due to cast on foot. Nsg has attempted to contact MD and assisted living facility where pt resides regarding orthopedic injury and WB status but has thus far been unsuccessful. Therapy delay reason Unavailable due to tests/procedures Recommendation Cosign Entry reviewed and co-signed Cosigned by Bessie Carty PT at 06/23/2016 2:56 PM EDT Associated attestation - Bessie Carty PT - 06/23/2016 2:56 PM EDT cosign * Gunjan Mustafa RN - 06/22/2016 8:00 PM EDT Patient oriented to room and unit. Nonskid footwear in place. Side rails x 2. Bed alarm in use. Call light within reach. No chest pain at this time. Vitals stable. Skin assessment performed with Sandra BANSAL. No skin issues noted. documented in this encounter H&P Notes * Campbell Huston MD - 06/22/2016 6:58 PM EDT Images from the original note were not included. Name: Faby Palm ADDRESS: [address] [place] [address] : 1950 AGE: 65 y.o. Admitting Physician: Campbell Huston MD Date of Admit: 06/22/2016 PCP:Alessandra Trevino France, OIL BURNER TECHNICIAN Chief Complaint: Chest pain History of Present Illness: Patient is a 65 y.o. female hx of HTN, Aflutter s/p ablation, CAD C in 2016, mild LAD stenosis (no sten), DM, schizophrenia brought to ER for evaluation of chest pressure, mid sternal, feels like a horse sitting on her chest associated with mild sob. No nausea, vomiting, palpitations, diaphoresis. Has a cast on her left leg, states hardware on her foot had broken. Nofever, chills, no sick contact. Has not been able to move around that much Past Medical History: Diagnosis Date ??? Atrial [...] Tablet Take 150 mg by mouth daily. Provider, Historical sitaGLIPtin (JANUVIA) 100 mg Oral Tablet Take 100 mg by mouth daily. Provider, Historical torsemide (DEMADEX) 10 mg Oral Tablet Take 1 Tab by mouth daily. 01/02/16 Ernie Pizano MD venlafaxine (EFFEXOR-XR) 150 mg Oral Capsule, Sust. Release 24 hr Take 300 mg by mouth nightly. Provider, Historical Allergies Allergen Reactions ??? Compazine [Prochlorperazine Edisylate] ??? [place] ??? Talwin [Pentazocine Lactate] Social History Social History ??? Marital status: Spouse name: N/A ??? Number of children: N/A ??? Years of education: N/A Social History Main Topics ??? Smoking status: Never Smoker ??? Smokeless tobacco: Never Used ??? Alcohol use No ??? Drug use: No ??? Sexual activity: Not on file Other Topics Concern ??? Not on file Social History Narrative Family History Problem Relation Age of Onset ??? Cancer Mother raffaele cancer Review of Systems: The listed systems were reviewed and reveal the following in addition to any already discussed in the HPI: Constitutional: Negative. HEENT: Negative. . Respiratory: Negative. Cardiovascular: positive for chest pressur. Gastrointestinal: Negative. Genitourinary: Negative. Musculoskeletal: Negative. Skin: Negative. Neurological: Negative. Endo/Heme/Allergies: Negative. Psychiatric/Behavioral: Negative. Physical Exam: Visit Vitals ??? BP 143/63 (BP Location: Left arm, Patient Position: Sitting) ??? Pulse 69 ??? Temp 97.9 ??F (36.6 ??C) (Oral) ??? Resp 20 ??? Ht 5' 8 (1.727 m) ??? Wt 271 lb (122.9 kg) ??? SpO2 99% ??? No ??? BMI 41.21 kg/m2 GEN APPEARANCE: Pt appears in NAD, obese, in bed HEENT: Normocephalic and atraumatic. Neck: Normal range of motion. Neck supple. Cardiovascular: Normal rate, regular rhythm, normal heart sounds and intact distal pulses. Exam reveals no gallop and no friction rub. No murmur heard. Pulmonary/Chest: Clear breath sounds bilaterally. No crackles, rales, wheezing. No accessory muscles use. Abdominal: Soft. Bowel sounds are normal. There is no distension, no palpable mass, rebound or guarding. : not examined Neurological: Patient is alert and oriented to person, place, and time. No cranial nerve deficit. Strength is normal and equal throughout. Sensation is intact Musculoskeletal: Cast left leg Skin: Skin is warm and dry. No rash noted. Psychiatric: normal mood and affect. Labs: CBC: Lab Results Component Value Date WBC 9.9 06/22/2016 RBC 3.92 06/22/2016 HGB 11.5 (L) 06/22/2016 HCT 34.3 (L) 06/22/2016 MCV 87.4 06/22/2016 MCHC 33.6 06/22/2016 RDW 13.6 06/22/2016 MPV 9.6 06/22/2016 BMP: Lab Results Component Value Date NA 139 06/22/2016 K 4.2 06/22/2016 CL 102 06/22/2016 CO2 23 06/22/2016 BUN 15 06/22/2016 CREATININE 1.42 (H) 06/22/2016 CALCIUM 8.5 (L) 06/22/2016 GFRAFRAM 45 06/22/2016 GFRNONAFRAM 37 06/22/2016 GLU 200 (H) 06/22/2016 Hepatic: Lab Results Component Value Date ALKPHOS 195 (H) 06/22/2016 ALT 10 06/22/2016 AST 12 06/22/2016 PROT 6.9 06/22/2016 LABBILI 0.4 06/22/2016 BILIDIR <0.2 09/09/2015 Lab Results Component Value Date LIPASE 24 09/09/2015 EKG SR, left axis deviation, normal MO and QT intervals, no ST elevation or depression, small Q Assessment/plan: Chest pain, no ischemic changes on EKG, tn x 2 neg D dimer elevated, unable to obtain CTA chest d/t JACK Unlikely to have PE given on eliquis But given recent left foot fracture, immobility and obese, it's reasonable to do a V/Q scan Echo Cardiology consult Hx of CAD [facility] in 12/2015, mid LAD lesion No stent Hx of Afib, s/p ablation On eliquis Essential HTN- stable Hx of schizophrenia Recent left foot/ankle fracture, unstable hardware Cast in place Morbid obesity Discussed with patient and RN Campbell Huston MD 06/22/2016 documented in this encounter Consult Notes * Bello Cruz MD - 06/23/2016 10:40 AM EDTAssociated Order(s): IP CONSULT TO CARDIOLOGY CARDIOLOGY CONSULT Faby Palm Today's Date: 06/23/2016 Date of Admission: 06/22/2016 Primary Care Provider: Alessandra Trevino APRN In Store Marketing Associate: seen inpatient only Chief Complaint: Chest pain Referring MD: Campbell Huston HPI: Faby Palm 65 y/o female with a history of CAD, PAF, hypertension, dyslipidemia, CVA and schizophrenia presents with chest pain which started yesterday morning after awakening. Describes as an anterior pressure. Feels like someone is pushing on me . No radiation. Not exertional, positional or pleuritic. Feels like she is unable to take a deep breath. Has intermittent dizziness. Denies N/V and diaphoresis. Given topical NTG with partial relief, otherwise has remained constant since onset. History of CAD per cath (12/2015) with 60-70% proximal LAD and normal FFR. She was managed medically. ROS: Denies: Constitutional: fever, chills ENT: headaches, vertigo Cardiovascular: palpitations, edema, orthopnea, syncope Pulmonary: cough, sputum production Gastrointestinal: abdominal pain, nausea, vomiting Genitourinary: change in bladder habits Musculoskeletal: weakness, joint complaints Integumentary: rash Endocrine: fatigue Hematologic/Lymphatic: abnormal bruising Allergic/Immunologic: hives Complains of: chest pressure Allergies Allergen Reactions ??? Compazine [Prochlorperazine Edisylate] ??? [place] ??? Pentazocine Hcl ??? Prochlorperazine Maleate ??? Talwin [Pentazocine Lactate] Prior to Admission Medications - not taking Metoprolol or Eliquis Prescriptions Prior to Admission Medication Sig Dispense Refill Last Dose ??? acetaminophen 325 mg Oral Tab Take 650 mg by mouth every 4 hours as needed for Pain. Unknown atUnknown time ??? amitriptyline (ELAVIL) 75 mg Oral Tablet Take 75 mg by mouth nightly. 06/21/2016 at Unknown time ??? ARIPiprazole (ABILIFY) 10 mg Oral Tablet Take 30 mg by mouth daily. 06/22/2016 at Unknown time ??? aspirin 81 mg Oral Tablet, Delayed Release (E.C.) Take 81 mg by mouth daily. 06/22/2016 at Unknown time ??? ferrous sulfate 325 mg (65 mg iron) Oral Tablet Take 1 Tab by mouth 2 times daily (with meals).60 Tab 5 06/22/2016 ??? gabapentin (NEURONTIN) 100 mg Oral Capsule Take 100 mg by mouth nightly. 06/21/2016 at Unknown time ??? glipiZIDE (GLUCOTROL) 10 mg Oral Tablet Take 10 mg by mouth 2 times daily (with meals). 06/22/2016 ??? hydrOXYzine (ATARAX) 25 mg Oral Tablet Take 25 mg by mouth 2 times daily. Indications: ANXIETY 06/21/2016 at Unknown time ??? lisinopril (PRINIVIL;ZESTRIL) 10 mg Oral Tablet Take 5 mg by mouth daily. 06/22/2016 at Unknown time ??? NIFEdipine (PROCARDIA XL) 90 mg Oral Tablet Extended Rel 24 hr Take 90 mg by mouth daily. ??? pantoprazole (PROTONIX) 40 mg Oral Tablet, Delayed Release (E.C.) Take 1 Tab by mouth 2 times daily. 60 Tab 1 06/22/2016 at Unknown time ??? risperiDONE (RISPERDAL) 1 mg Oral Tablet Take 2 mg by mouth nightly. 06/21/2016 at Unknown time ??? roPINIRole (REQUIP) 0.5 mg Oral Tablet Take 1.5 mg by mouth nightly. 06/21/2016 at Unknown time ??? sitaGLIPtin (JANUVIA) 100 mg Oral Tablet Take 100 mg by mouth daily. 06/22/2016 at Unknown time ??? venlafaxine (EFFEXOR-XR) 150 mg Oral Capsule, Sust. Release 24 hr Take 300 mg by mouth nightly.06/22/2016 at Unknown time ??? apixaban (ELIQUIS) 5 mg Oral Tablet Take 1 Tab by mouth 2 times daily. (Patient not taking: Reported on 06/22/2016) 60 Tab 0 Not Taking at Unknown time ??? atorvastatin (LIPITOR) 20 mg Oral Tablet Take 1 Tab by mouth nightly. (Patient not taking: Reported on 06/22/2016) 30 Tab 2 Not Taking at Unknown time ??? hydrOXYzine (ATARAX) 50 mg Oral Tablet Take 25 mg by mouth 2 times daily. Reported on 06/22/2016Not Taking at Unknown time ??? metoprolol (LOPRESSOR) 25 mg Oral Tablet Take 1 Tab by mouth 2 times daily. (Patient not taking: Reported on 06/22/2016) 60 Tab 2 Not Taking at Unknown time ??? sertraline (ZOLOFT) 100 mg Oral Tablet Take 150 mg by mouth daily. Reported on 06/22/2016 Not Taking at Unknown time ??? torsemide (DEMADEX) 10 mg Oral Tablet Take 1 Tab by mouth daily. (Patient not taking: Reported on 06/22/2016) 30 Tab 2 Not Taking at Unknown time Past Medical History: Past [...] of Onset ??? Cancer Mother raffaele cancer Social History: reports that she has never smoked. She has never used smokeless tobacco. She reports that she does not drink alcohol or use illicit drugs. Labs: Lab Results Component Value Date HGB 11.5 (L) 06/22/2016 HCT 34.3 (L) 06/22/2016 PLT 150 06/22/2016 NA 139 06/22/2016 K 4.2 06/22/2016 CREATININE 1.42 (H) 06/22/2016 BUN 15 06/22/2016 TSH 3.090 12/27/2015 INR 1.03 12/28/2015 Vitals: Vitals: 06/22/16 2358 06/23/16 0419 06/23/16 0528 06/23/16 0741 BP: 131/59 121/49 149/65 BP Location: Left arm Right arm Right arm Patient Position: Semi Fowlers Lying left side Semi Fowlers Pulse: 69 63 81 Resp: Temp: 97.8 ??F (36.6 ??C) 97.5 ??F (36.4 ??C) 97.9 ??F (36.6 ??C) TempSrc: Oral Oral Oral SpO2: 98% 98% 97% Weight: 255 lb 1.6 oz (115.7 kg) Height: Body mass index is 38.79 kg/(m^2). TELEMETRY: NSR, 60's Physical Exam: GEN: Alert, pleasant and oriented x3. In no acute distress. HEENT: Sclerae anicteric. No xanthelasmas. EOM's intact. NECK: Supple. No JVD. LUNGS: clear to auscultation. Chest wall nontender. HEART: RRR, no murmur, gallop, or rub. ABD: soft, nontender, positive bowel sounds EXT: no edema, +2 radial, LLE hard cast NEURO: no obvious focal abnormalities Cardiac Cath (12/2015): Proximal LAD 60-70% stenosis. Ostial RCA 20%, no dampening noted. The ejection fraction is 50-55% by visual estimate Nonphysiologic significant stenosis of the Mid LAD with FFR of 0.92 Echo (12/2015): LVEF 60-65%, MCH, mod-severe TR, RVSP~32+JVP EKG: NSR, rate 64, septal QW, no acute ST abnormalities - unchanged from prior Assessment: Chest pain - Troponins negative - EKG unchanged - CXR: no acute disease - VQ scan low probability CAD - Cath (12/2015): 60-70% prox LAD with normal FFR Paroxysmal Atrial Fib/Flutter - S/p flutter ablation (12/2015) - Eliquis stopped due to falls per patient Hypertension Dyslipidemia - On statin Mild Renal Insufficiency H/o CVA H/o Schizophrenia Plan: - Echo requested per attending and pending - KENDAL JOSE - will add Imdur. If recurrent symptoms despite antianginals may have to consider repeat cath. - Betablocker stopped by her PCP, suspect due to baseline bradycardia - Continue ASA, Lipitor Further input to follow-up from Dr. Saad Oropeza, OIL BURNER TECHNICIAN 06/23/2016 ATTENDING PHYSICIAN ATTESTATION: The patient was seen in collaboration with Pamela Oropeza. I have reviewed all the pertinent history, laboratory and radiology studies. I have had a [id number] encounter with the patient, taken a history and performed a physical examination of this patient. I agree with the history, physical, assessment and plan as outlined above unless otherwise stated on the following addendum. PMH of CAD, PAF, hypertension, dyslipidemia, CVA and schizophrenia. Presented to the hospital with chest pain that started after waking up yesterday. She described it as a pressure in the anterior chest, she said it feels like somebody is pushing. The pain does not radiate, it is not exertional, there are no other specific exacerbating or alleviating factors. She does feel like she is unable to take a deep breath. She also complained of intermittent dizziness. Denied nausea, vomiting, diaphoresis, otherwise shortness of breath. Of note, patient had a coronary angiogram approximately 6 months ago that showed a 60-70% LAD lesion that had a normal FFR at the time. No intervention. Vitals noted NAD RRR S1S2 CTAB Benign abdomen No edema Patient with an episode of chest pain. Her troponins have been negative and her EKG remains unchanged. ACS ruled out. She also had a VQ scan with low probability for PE. It is possible that her symptoms come from LAD lesion as above. Given the fact that there is no evidence of acute ischemia, I would recommend to initiate antianginal agents. If patient continues to have episodes of chest pain despite antianginals, she would probably need to get a repeat angiogram and PCI of her LAD. She had been on beta blockers, which were stopped likely due to bradycardia. Beta blockers usually have an antianginal effects, so we will have to substitute the effects by using isosorbide and Ranexa. Continue aspirin and statin. If patient continues to be okay without any more episodes of chest pain after 24 hours for observation, I would recommend for her to be discharged, and to be followed very closely in the cardiology office. Bello Nash MD 06/23/2016 documented in this encounter Miscellaneous Notes * Utilization Review Notes - Camille Mcknight RN - 06/24/2016 12:31 PM EDT cont stay review, pt on discharge pt to return home at discharge, director of patient care following for any discharge needs. * Plan of Care - Gunjan Mustafa RN - 06/24/2016 3:09 AM EDT Problem: Safety: Fall Risk Goal: Patient will remain free of falls and injury Outcome: Progressing Bed in lowest position. Side rails x 2. Nonskid footwear in place. Bed alarm in use. Call light within reach Problem: Pain Management Goal: The patient???s stated pain goal will be reached and maintained. The patient???s stated pain goal will be reached and maintained Outcome: Progressing Pain managed with prn medication Problem: Knowledge Deficit Related to Disease Process/Treatment Goal: Patient/family will be knowledgeable of disease process and treatment Outcome: Progressing Pt up to date on plan. No questions at this time * Plan of Care - Katelynn Skinner RN - 06/23/2016 1:09 PM EDT Problem: Safety: Fall Risk Goal: Patient will remain free of falls and injury Outcome: Progressing No falls per shift, non-skid footwear in place, bed alarm being utilized, call light within reach and use encouraged. Problem: Pain Management Goal: The patient???s stated pain goal will be reached and maintained. The patient???s stated pain goal will be reached and maintained Outcome: Progressing Leg pain managed with PRN tylenol Problem: Knowledge Deficit Related to Disease Process/Treatment Goal: Patient/family will be knowledgeable of disease process and treatment Outcome: Progressing Patient updated on current treatment and plan of care. Problem: Psycho/Social/Spiritual Goal: Patient will identify sources of support and strength Outcome: Progressing Patient identifies friends at assisted living as support system Problem: Assess for New Problems - (ALWAYS ADD TO CARE PLAN) Assess patient for any new problem(s) to add to Care Plan. If no new problem(s) are identified, choose no new problem(s) added . If new problem(s) are identified, choose new problem added and document a note regarding the new problem(s). Add the template for the new problem(s) to the Care Plan. Goal: Patient???s care plan will be individualized with added [...] problems identified. * Utilization Review Notes - Lizzie Mireles LPN - 06/23/2016 9:08 AM EDT Admission from ER to TELEMETRY Observation order on chart. Admission for Chest Pain D Dimer 646 ASA Daily, Eliquis 5mg BID, Ferrous Sulfate BID, Neurontin Nightly, Glucotrol 10mg BID, Lopressor 25mg BID, Nitro Paste x1, Daily Weights, Cardiac Monitoring, NM Lumg Ventilation Perfusion ordered, NPO Midnight, Consult Cardiology, Echo Ordered * Plan of Care - Gunjan Mustafa RN - 06/23/2016 3:25 AM EDT Problem: Safety: Fall Risk Goal: Patient will remain free of falls and injury Outcome: Progressing Bed in lowest position. Side rails x 2. Nonskid footwear in place. Bed alarm in use. Call light within reach Problem: Pain Management Goal: The patient???s stated pain goal will be reached and maintained. The patient???s stated pain goal will be reached and maintained Outcome: Progressing Pain managed with prn medication Problem: Knowledge Deficit Related to Disease Process/Treatment Goal: Patient/family will be knowledgeable of disease process and treatment Outcome: Progressing Pt up to date on plan. No questions at this time documented in this encounter Plan of Treatment Not on file documented as of this encounter Procedures Procedure Name Priority Date/Time Associated Diagnosis Comments SCANNED RHYTHM STRIPS 06/28/2016 3:46 PM EDT SCANNED RHYTHM STRIPS 06/24/2016 7:41 AM EDT EC ECHOCARDIOGRAM COMPLETE W DOPPLER AND COLOR FLOW MAPPING Routine 06/23/2016 3:12 PM EDT NM LUNG VENTILATION PERFUSION EMMY 06/23/2016 11:21 AM EDT EK EKG 12 LEAD Routine 06/23/2016 12:05 AM EDT IP CONSULT TO CARDIOLOGY Routine 06/22/2016 8:00 PM EDT Procedure Note - Bello Cruz MD - 06/23/2016 10:40 AM EDTThis note is in progress. CARDIOLOGY CONSULT Faby Palm Today's Date: 06/23/2016 Date of Admission: 06/22/2016 Primary Care Provider: Alessandra Trevino [place], OIL BURNER TECHNICIAN In Store Marketing Associate: seen inpatient only Chief Complaint: Chest pain Referring MD: Campbell Huston HPI: Faby Palm 65 y/o female with a history of CAD, PAF, hypertension,dyslipidemia, CVA and schizophrenia presents with chest pain which startedyesterday morning after awakening. Describes as an anterior pressure. Feels like someone is pushing on me . No radiation. Not exertional,positional or pleuritic. Feels like she is unable to take a deep breath.Has intermittent dizziness. Denies N/V and diaphoresis. Given topical NTGwith partial relief, otherwise has remained constant since onset. Historyof CAD per cath (12/2015) with 60-70% proximal LAD and normal FFR. She wasmanaged medically. ROS: Denies: Constitutional: fever, chills ENT: headaches, vertigo Cardiovascular: palpitations, edema, orthopnea, syncope Pulmonary: cough, sputum production Gastrointestinal: abdominal pain, nausea, vomiting Genitourinary: change in bladder habits Musculoskeletal: weakness, joint complaints Integumentary: rash Endocrine: fatigue Hematologic/Lymphatic: abnormal bruising Allergic/Immunologic: hives Complains of: chest pressure Allergies Allergen Reactions ? ? Compazine [Prochlorperazine Edisylate] ? ? [place] ? ? Pentazocine Hcl ? ? Prochlorperazine Maleate ? ? Talwin [Pentazocine Lactate] Prior to Admission Medications - not taking Metoprolol or Eliquis Prescriptions Prior to Admission Medication Sig Dispense Refill Last Dose ? ? acetaminophen 325 mg Oral Tab Take 650 mg by mouth every 4 hours asneeded for Pain. Unknown at Unknown time ? ? amitriptyline (ELAVIL) 75 mg Oral Tablet Take 75 mg by mouth nightly.06/21/2016 at Unknown time ? ? ARIPiprazole (ABILIFY) 10 mg Oral Tablet Take 30 mg by mouth daily.06/22/2016 at Unknown time ? ? aspirin 81 mg Oral Tablet, Delayed Release (E.C.) Take 81 mg by mouthdaily. 06/22/2016 at Unknown time ? ? ferrous sulfate 325 mg (65 mg iron) Oral Tablet Take 1 Tab by mouth 2times daily (with meals). 60 Tab 5 06/22/2016 ? ? gabapentin (NEURONTIN) 100 mg Oral Capsule Take 100 mg by mouth nightly.06/21/2016 at Unknown time ? ? glipiZIDE (GLUCOTROL) 10 mg Oral Tablet Take 10 mg by mouth 2 timesdaily (with meals). 06/22/2016 ? ? hydrOXYzine (ATARAX) 25 mg Oral Tablet Take 25 mg by mouth 2 timesdaily. Indications: ANXIETY 06/21/2016 at Unknown time ? ? lisinopril (PRINIVIL;ZESTRIL) 10 mg Oral Tablet Take 5 mg by mouthdaily. 06/22/2016 at Unknown time ? ? NIFEdipine (PROCARDIA XL) 90 mg Oral Tablet Extended Rel 24 hr Take 90mg by mouth daily. ? ? pantoprazole (PROTONIX) 40 mg Oral Tablet, Delayed Release (E.C.) Take 1Tab by mouth 2 times daily. 60 Tab 1 06/22/2016 at Unknown time ? ? risperiDONE (RISPERDAL) 1 mg Oral Tablet Take 2 mg by mouth nightly.06/21/2016 at Unknown time ? ? roPINIRole (REQUIP) 0.5 mg Oral Tablet Take 1.5 mg by mouth nightly.06/21/2016 at Unknown time ? ? sitaGLIPtin (JANUVIA) 100 mg Oral Tablet Take 100 mg by mouth daily.06/22/2016 at Unknown time ? ? venlafaxine (EFFEXOR-XR) 150 mg Oral Capsule, Sust. Release 24 hr Elxz806 mg by mouth nightly. 06/22/2016 at Unknown time ? ? apixaban (ELIQUIS) 5 mg Oral Tablet Take 1 Tab by mouth 2 times daily.(Patient not taking: Reported on 06/22/2016) 60 Tab 0 Not Taking at Unknowntime ? ? atorvastatin (LIPITOR) 20 mg Oral Tablet Take 1 Tab by mouth nightly.(Patient not taking: Reported on 06/22/2016) 30 Tab 2 Not Taking at Unknowntime ? ? hydrOXYzine (ATARAX) 50 mg Oral Tablet Take 25 mg by mouth 2 timesdaily. Reported on 06/22/2016 Not Taking at Unknown time ? ? metoprolol (LOPRESSOR) 25 mg Oral Tablet Take 1 Tab by mouth 2 timesdaily. (Patient not taking: Reported on 06/22/2016) 60 Tab 2 Not Taking atUnknown time ? ? sertraline (ZOLOFT) 100 mg Oral Tablet Take 150 mg by mouth daily.Reported on 06/22/2016 Not Taking at Unknown time ? ? torsemide (DEMADEX) 10 mg Oral Tablet Take 1 Tab by mouth daily.(Patient not taking: Reported on 06/22/2016) 30 Tab 2 Not Taking at Unknowntime Past Medical History: Past Medical History: Diagnosis [...] ? BREAST SURGERY ? ? JOINT REPLACEMENT ? ? LUNG SURGERY ? ? ORTHOPEDIC SURGERY ? ? TONSILLECTOMY ? ? UPPER GASTROINTESTINAL ENDOSCOPY N/A 04/03/2015 ESOPHAGOGASTRODUODENOSCOPY WITH BIOPSY AND BRUSHING; Surgeon: Be Brown MD; Location: [facility]; Service: Endoscopy Family History: Family History Problem Relation Age of Onset ? ? Cancer Mother raffaele cancer Social History: reports that she has never smoked. She has never used smokeless tobacco.She reports that she does not drink alcohol or use illicit drugs. Labs: Lab Results Component Value Date HGB 11.5 (L) 06/22/2016 HCT 34.3 (L) 06/22/2016 PLT 150 06/22/2016 NA 139 06/22/2016 K 4.2 06/22/2016 CREATININE 1.42 (H) 06/22/2016 BUN 15 06/22/2016 TSH 3.090 12/27/2015 INR 1.03 12/28/2015 Vitals: Vitals: 06/22/16 2358 06/23/16 0419 06/23/16 0528 06/23/16 0741 BP: 131/59 121/49 149/65 BP Location: Left arm Right arm Right arm Patient Position: Semi Fowlers Lying left side Semi Fowlers Pulse: 69 63 81 Resp: Temp: 97.8 ??F (36.6 ??C) 97.5 ??F (36.4 ??C) 97.9 ??F (36.6 ??C) TempSrc: Oral Oral Oral SpO2: 98% 98% 97% Weight: 255 lb 1.6 oz (115.7 kg) Height: Body mass index is 38.79 kg/(m^2). TELEMETRY: NSR, 60's Physical Exam: GEN: Alert, pleasant and oriented x3. In no acute distress. HEENT: Sclerae anicteric. No xanthelasmas. EOM's intact. NECK: Supple. No JVD. LUNGS: clear to auscultation. Chest wall nontender. HEART: RRR, no murmur, gallop, or rub. ABD: soft, nontender, positive bowel sounds EXT: no edema, +2 radial, LLE hard cast NEURO: no obvious focal abnormalities Cardiac Cath (12/2015): Proximal LAD 60-70% stenosis. Ostial RCA 20%, no dampening noted. The ejection fraction is 50-55% by visual estimate Nonphysiologic significant stenosis of the Mid LAD with FFR of 0.92 Echo (12/2015): LVEF 60-65%, MCH, mod-severe TR, RVSP~32+JVP EKG: NSR, rate 64, septal QW, no acute ST abnormalities - unchanged fromprior Assessment: Chest pain - Troponins negative - EKG unchanged - CXR: no acute disease - VQ scan low probability CAD - Cath (12/2015): 60-70% prox LAD with normal FFR Paroxysmal Atrial Fib/Flutter - S/p flutter ablation (12/2015) - Eliquis stopped due to falls per patient Hypertension Dyslipidemia - On statin Mild Renal Insufficiency H/o CVA H/o Schizophrenia Plan: - Echo requested per attending and pending - KENDAL JOSE - will add Imdur. If recurrent symptoms despite antianginals mayhave to consider repeat cath. - Betablocker stopped by her PCP, suspect due to baseline bradycardia - Continue ASA, Lipitor Further input to follow-up from Dr. Saad Oropeza, OIL BURNER TECHNICIAN 06/23/2016 ATTENDING PHYSICIAN ATTESTATION: The patient was seen in collaboration with Pamela Oropeza. I have reviewed all the pertinent history, laboratory and radiologystudies. I have had a [id number] encounter with the patient, taken a history andperformed a physical examination of this patient. I agree with the history, physical, assessment and plan as outlined aboveunless otherwise stated on the following addendum. PMH of CAD, PAF, hypertension, dyslipidemia, CVA and schizophrenia. Presented to the hospital with chest pain that started after waking upyesterday. She described it as a pressure in the anterior chest, she said it feelslike somebody is pushing. The pain does not radiate, it is not exertional, there are no otherspecific exacerbating or alleviating factors. She does feel like she isunable to take a deep breath. She also complained of intermittent dizziness. Denied nausea, vomiting, diaphoresis, otherwise shortness of breath. Of note, patient had a coronary angiogram approximately 6 months ago thatshowed a 60-70% LAD lesion that had a normal FFR at the time. Nointervention. Vitals noted NAD RRR S1S2 CTAB Benign abdomen No edema Patient with an episode of chest pain. Her troponins have been negativeand her EKG remains unchanged. ACS ruled out. She also had a VQ scan with low probability for PE. It is possible that her symptoms come from LAD lesion as above. Given thefact that there is no evidence of acute ischemia, I would recommend toinitiate antianginal agents. If patient continues to have episodes ofchest pain despite antianginals, she would probably need to get a repeatangiogram and PCI of her LAD. She had been on beta blockers, which were stopped likely due tobradycardia. Beta blockers usually have an antianginal effects, so we willhave to substitute the effects by using isosorbide and Ranexa. Continue aspirin and statin. If patient continues to be okay without any more episodes of chest painafter 24 hours for observation, I would recommend for her to bedischarged, and to be followed very closely in the cardiology office. Bello Nash MD 06/23/2016 TROPONIN-T Timed 06/22/2016 7:52 PM EDT GLUCOSE METER POC Routine 06/22/2016 7:12 PM EDT documented in this encounter Results * SCANNED RHYTHM STRIPS (06/28/2016 3:46 PM EDT) Anatomical Region Laterality Modality Other 06/28/2016 3:46 PM EDT us Unknown Unknown IMG ECG ORDERABLES Final Result * SCANNED RHYTHM STRIPS (06/24/2016 7:41 AM EDT) Anatomical Region Laterality Modality Other 06/24/2016 7:41 AM EDT us Unknown Unknown IMG ECG ORDERABLES Final Result * EC ECHOCARDIOGRAM COMPLETE W DOPPLER AND COLOR FLOW MAPPING (06/23/2016 3:12 PM EDT) Ejection Fraction 65-70 % PYRAMIS Anatomical Region Laterality Modality Electrocardiogra phy 06/23/2016 2:21 PM EDT Impressions 06/24/2016 8:23 AM EDT ??CONCLUSIONS ??Normal LV size and function. LVEF 65-70%. ??Mild concentric hypertrophy. ?Grade 1 diastolic dysfunction ??The right ventricle is normal in size and function. ?Mild left atrial dilatation. ??Trace mitral regurgitation. ??Mild to moderate tricuspid regurgitation. RVSP estimated to be:.37 mmHg + JVP. Narrative Procedure Note Bello Cruz MD - 06/24/2016 IMPRESSION CONCLUSIONS Normal LV size and function. LVEF 65-70%. Mild concentric hypertrophy. Grade 1 diastolic dysfunction The right ventricle is normal in size and function. Mild left atrial dilatation. Trace mitral regurgitation. Mild to moderate tricuspid regurgitation. RVSP estimated to be:.37 mmHg+ JVP. us Campbell Huston MD IMG ECHO ORDERABLES Final Result * NM LUNG VENTILATION PERFUSION (06/23/2016 11:21 AM EDT) Anatomical Region Laterality Modality Chest Nuclear Medicine 06/23/2016 11:2 1 AM EDT Impressions 06/23/2016 12:08 PM EDT 1. Scintigraphic findings are low probability for pulmonary embolism. Narrative 06/23/2016 12:08 PM EDT NM LUNG VENTILATION PERFUSION. 06/23/2016 11:21 AM CLINICAL HISTORY: 65-year-old with chest pain. Elevated creatinine. -Chest pain, acute, PE suspected, intermed prob, negative D-dimer FINDINGS: Comparison: Chest radiograph dated June 22, 2016. No prior V/Q scans for comparison Patient inhaled 12.0 mCi xenon-133 for ventilatory images. Furthermore, patient received 7.3 mCi technetium 99m MAA intravenously for perfusion images. Ventilatory images demonstrate relatively homogeneous distribution of the radiotracer throughout the lungs. Perfusion images demonstrate also demonstrates relatively homogeneous distribution of the radiotracer throughout the lungs. Procedure Note Sandra Pena MD - 06/23/2016 NM LUNG VENTILATION PERFUSION. 06/23/2016 11:21 AM CLINICAL HISTORY: 65-year-old with chest pain. Elevated creatinine. -Chestpain, acute, PE suspected, intermed prob, negative D-dimer FINDINGS: Comparison: Chest radiograph dated June 22, 2016. No prior V/Q scansfor comparison Patient inhaled 12.0 mCi xenon-133 for ventilatory images. Furthermore,patient received 7.3 mCi technetium 99m MAA intravenously for perfusion images. Ventilatory images demonstrate relatively homogeneous distribution ofthe radiotracer throughout the lungs. Perfusion images demonstrate also demonstrates relatively homogeneous distribution of the radiotracer throughout the lungs. IMPRESSION: 1. Scintigraphic findings are low probability for pulmonary embolism. Campbell Huston MD [facility] ORDERABLES Final Result * EK EKG 12 LEAD (06/23/2016 12:05 AM EDT) Anatomical Region Laterality Modality Electrocardiogra phy 06/23/2016 7:21 AM EDT Impressions 06/24/2016 9:10 AM EDT ? Stationary ECG Study ?[facility] ? Interpretive Statements ? SINUS RHYTHM PATTERN CONSISTENT WITH PULMONARY DISEASE SEPTAL MYOCARDIAL INFARCTION, PROBABLY OLD Inferior TN - age undetermined Electronically Signed On 06-24-2016 9:10:06 EDT by Bello Nash MD Narrative Procedure Note Bello Cruz MD - 06/24/2016 IMPRESSION [address] ECG Study [facility] Interpretive Statements SINUS RHYTHM PATTERN CONSISTENT WITH PULMONARY DISEASE SEPTAL MYOCARDIAL INFARCTION, PROBABLY OLD Inferior TN - age undetermined Electronically Signed On 06-24-2016 9:10:06 EDT by Bello Nash MD us Ernie Michel MD IMG ECG ORDERABLES Final Resu lt * TROPONIN-T (06/22/2016 7:52 PM EDT) [facility] Troponin-T <0.01 <=0.00 ng/mL [facility] Comment: Values > or = 0.01 ng/mL have been shown to have prognostic value. Blood specimen (specimen) 06/22/2016 7:52 PM EDT 06/22/2016 8:00 PM EDT us Ernie Michel MD CHEMISTRY ORDERABLES Final Re sult [facility] [address] [place] [address] * (ABNORMAL) GLUCOSE METER POC (06/22/2016 7:12 PM EDT) Glucose Meter POC 175(H) 70 - 100 mg/dL [facility] POINT OF CARE LABORATORY Sample [facility] Patient Status Non-Critical Patient [facility] POINT [facility] CARE [facility]OR[facility] Blood specimen (specimen) 06/22/2016 7:12 PM EDT 06/22/2016 7:12 PM EDT Campbell Huston MD POINT OF CARE TEST ORDERABLES Fi nal Result [facility] [address] [place] [address] documented in this encounter Visit Diagnoses Diagnosis Precordial pain- Primary Essential hypertension Unspecified essential hypertension Hemiparesis affecting left side as late effect of stroke (HCC) Hemiplegia affecting unspecified side, late effect of cerebrovascular disease Peripheral motor neuropathy Mononeuritis of unspecified site Atrial flutter (HCC) Atrial flutter documented in this encounter Administered Medications Inactive Administered Medications - up to 1 most recent administrations Medication Order MAR Action Action Date Dose Rate Site acetaminophen (TYLENOL) tablet 650 mg 650 mg, Oral, EVERY 4 HOURS PRN, Starting on Wed06/22/16 at 1910, Until Wed06/24/16 at 2208, Pain, Maximum adult dose of acetaminophen is 4000 mg from all sources in 24 hours. Given 06/23/2016 8:25 PM EDT 650 mg amitriptyline (ELAVIL) tablet 75 mg 75 mg, Oral, NIGHTLY, First dose on Wed06/22/16 at 2145, Until Discontinued Given 06/23/2016 8:26 PM EDT 75 mg ARIPiprazole (ABILIFY) tablet 30 mg 30 mg, Oral, DAILY, First dose on Wed06/23/16 at 0900, Until Discontinued Given 06/24/2016 8:02 AM EDT 30 mg aspirin EC tablet 81 mg 81 mg, Oral, DAILY, First dose on Wed06/23/16 at 0900, Until Discontinued Given 06/24/2016 8:02 AM EDT 81 mg atorvastatin (LIPITOR) tablet 20 mg 20 mg, Oral, NIGHTLY, First dose on Wed06/22/16 at 2145, Until Discontinued Given 06/23/2016 8:26 PM EDT 20 mg diphenhydrAMINE (BENADRYL) tablet 25-50 mg 25-50 mg, Oral, NIGHTLY PRN, Starting on Wed06/23/16 at 2236, Until Wed06/24/16 at 2208, Sleep Given 06/23/2016 10:55 PM EDT 50 mg ferrous sulfate tablet 325 mg 325 mg, Oral, 2 TIMES DAILY WITH MEALS, First dose on Wed06/22/16 at 2145, Until Discontinued Given 06/24/2016 8:03 AM EDT 325 mg gabapentin (NEURONTIN) capsule 100 mg 100 mg, Oral, NIGHTLY, First dose on Wed06/22/16 at 2145, Until Discontinued Given 06/23/2016 8:26 PM EDT 100 mg glipiZIDE (GLUCOTROL) tablet 10 mg 10 mg, Oral, 2 TIMES DAILY WITH MEALS, First dose on Wed06/22/16 at 2145, Until Discontinued Given 06/24/2016 8:02 AM EDT 10 mg isosorbide mononitrate (IMDUR) CR tablet 60 mg 60 mg, Oral, DAILY, First dose on Wed06/23/16 at 1445, Until Discontinued Given 06/24/2016 8:03 AM EDT 60 mg miconazole (MICATIN) 2 % powder Topical, 2 TIMES DAILY, 56 doses, First dose on Wed06/23/16 at 2200, Last dose on Wed07/21/16 at 0900, Application site: skin folds/ananya area Given 06/24/2016 8:03 AM EDT NIFEdipine (PROCARDIA XL) CR tablet 90 mg 90 mg, Oral, DAILY, First dose on Wed06/24/16 at 0900, Until Discontinued Given 06/24/2016 10:29 AM EDT 90 mg nitroGLYCERIN (NITROGLYN) 2 % ointment 1 Inch 1 Inch, Topical, EVERY 6 HOURS SCHEDULED (4 times per day), First dose on Wed06/22/16 at 2015, Until Discontinued, Wipe off old dose, apply to chest wall. Patch Applied 06/23/2016 12:17 PM EDT 1 Inch pantoprazole (PROTONIX) tablet 40 mg 40 mg, Oral, DAILY, First dose on Wed06/23/16 at 1630, Until Discontinued, Do not crush or chew Given 06/24/2016 8:02 AM EDT 40 mg ranolazine (RANEXA) SR tablet 500 mg 500 mg, Oral, EVERY 12 HOURS SCHEDULED (2 times per day), First dose on Wed06/23/16 at 2100, Until Discontinued Given 06/24/2016 8:02 AM EDT 500 mg risperiDONE (RisperDAL) tablet 2 mg 2 mg, Oral, NIGHTLY, First dose on Wed06/22/16 at 2145, Until Discontinued Given 06/23/2016 8:26 PM EDT 2 mg roPINIRole (REQUIP) tablet 1.5 mg 1.5 mg, Oral, NIGHTLY, First dose on Wed06/22/16 at 2145, Until Discontinued Given 06/23/2016 8:26 PM EDT 1.5 mg sodium chloride 0.9% syringe Intravenous, ONCE PRN, 1 dose, Starting on Wed06/23/16 at 1055, Until Wed06/23/16 at 1055, Line Care, Flush every shift or after IV medication, Radiology Given 06/23/2016 10:55 AM EDT 10 mL [id number] MAA (DRAXIMAGE) injection 7.3 millicurie 7.3 millicurie, Intravenous, ONCE PRN, 1 dose, Starting on Wed06/23/16 at 1055, Until Wed06/23/16 at 1055, Radiology Procedure, Administration dose must be within 10% of the ordered dose for radiopharmaceutical medications., Radiology Given 06/23/2016 10:55 AM EDT 7.3 millicuries venlafaxine (EFFEXOR-XR) XR capsule 300 mg 300 mg, Oral, NIGHTLY, First dose on Wed06/23/16 at 2100, Until Discontinued Given 06/23/2016 8:26 PM EDT 300 mg xenon Xe-133 gas 12 millicurie 12 millicurie, Inhalation, ONCE PRN, 1 dose, Starting on Wed06/23/16 at 1055, Until Wed06/23/16 at 1055, Radiology Procedure, Administration dose must be within 10% of the ordered dose for radiopharmaceutical medications., Radiology Given 06/23/2016 10:55 AM EDT 12 millicuries documented in this encounter Discontinued Medications Medication Sig Discontinue Reason Start Date End Da te hydrOXYzine (ATARAX) 50 mg Oral Tablet Take 25 mg by mouth 2 times daily. Reported on 06/22/2016 Stop Taking at Discharge 06/24/2016 pantoprazole (PROTONIX) 40 mg Oral Tablet, Delayed Release (E.C.) Take 1 Tab by mouth 2 times daily. Stop Taking at Discharge 04/04/2015 06/24/2016 apixaban (ELIQUIS) 5 mg Oral Tablet Take 1 Tab by mouth 2 times daily. Stop Taking at Discharge 01/01/2016 06/24/2016 torsemide (DEMADEX) 10 mg Oral Tablet Take 1 Tab by mouth daily. Stop Taking at Discharge 01/02/2016 06/24/2016 atorvastatin (LIPITOR) 20 mg Oral Tablet Take 1 Tab by mouth nightly. Stop Taking at Discharge 01/02/2016 06/24/2016 metoprolol (LOPRESSOR) 25 mg Oral Tablet Take 1 Tab by mouth 2 times daily. Stop Taking at Discharge 01/02/2016 06/24/2016 sertraline (ZOLOFT) 100 mg Oral Tablet Take 150 mg by mouth daily. Reported on 06/22/2016 Stop Taking at Discharge 06/24/2016 NIFEdipine (PROCARDIA XL) 90 mg Oral Tablet Extended Rel 24 hr Take 90 mg by mouth daily. Stop Taking at Discharge 06/24/2016 documented as of this encounter Historical Medications * This list may reflect changes made after this encounter. NIFEdipine (PROCARDIA XL) 90 mg Oral Tablet Extended Rel 24 hr Take 90 mg by mouth daily. 06/24/2016 hydrOXYzine (ATARAX) 25 mg Oral TabletIndications :anxiety Take 25 mg by mouth 2 times daily. Indications: ANXIETY 02/23/2017 added in this encounter Active and Recently Administered Medications Times are shown in EDT. Scheduled Medication Order 06/22/2016 06/23/2016 06/24/2016 amitriptyline (ELAVIL) tablet 75 mg 75 mg, Oral, NIGHTLY, First dose on Wed06/22/16 at 2145, Until Discontinued 3 (Given - Provider: Gunjan Mustafa RN)2025 (Given - Provider: Gunjan Mustafa RN) ARIPiprazole (ABILIFY) tablet 30 mg 30 mg, Oral, DAILY, First dose on Wed06/23/16 at 0900, Until Discontinued 926 (Given - Provider: Katelynn Skinner, ROLF) 08 (Given - Provider: Katelynn Skinner, ROLF) aspirin EC tablet 81 mg 81 mg, Oral, DAILY, First dose on Wed06/23/16 at 0900, Until Discontinued 926 (Given - Provider: Katelynn Skinner RN) 08 (Given - Provider: Katelynn Skinner RN) atorvastatin (LIPITOR) tablet 20 mg 20 mg, Oral, NIGHTLY, First dose on Wed06/22/16 at 2145, Until Discontinued 2144 (Not Given - Provider: Gunjan Mustafa RN - Reason: Patient/family declined - Comment: Pt not currently taking) 2025 (Given - Provider: Gunjan Mustafa RN) ferrous sulfate tablet 325 mg 325 mg, Oral, 2 TIMES DAILY WITH MEALS, First dose on Wed06/22/16 at 2145, Until Discontinued 2225 (Given - Provider: Gunjan Mustafa RN) 1100 (Hold - Provider: Katelynn Skinner RN - Reason: NPO)1716 (Given - Provider: Yesenia Omer RN) 08 (Given - Provider: Katelynn Skinner RN)1800 (Due) gabapentin (NEURONTIN) capsule 100 mg 100 mg, Oral, NIGHTLY, First dose on Wed06/22/16 at 2145, Until Discontinued 2228 (Given - Provider: Gunjan Mustafa RN) 2025 (Given - Provider: Gunjan Mustafa RN) glipiZIDE (GLUCOTROL) tablet 10 mg 10 mg, Oral, 2 TIMES DAILY WITH MEALS, First dose on Wed06/22/16 at 2145, Until Discontinued 2225 (Given - Provider: Gunjan Mustafa RN) 1100 (Hold - Provider: Katelynn Skinner RN - Reason: NPO)1716 (Given - Provider: Yesenia Omer RN) 0802 (Given - Provider: Katelynn Skinner, ROLF)1800 (Due) isosorbide mononitrate (IMDUR) CR tablet 60 mg 60 mg, Oral, DAILY, First dose on Wed06/23/16 at 1445, Until Discontinued 153 (Given - Provider: Yesenia Omer RN) 0803 (Given - Provider: Katelynn Skinner, ROLF) miconazole (MICATIN) 2 % powder Topical, 2 TIMES DAILY, 56 doses, First dose on Wed06/23/16 at 2200, Last dose on Wed07/21/16 at 0900, Application site: skin folds/ananya area 2302 (Given - Provider: Gunjan Mustafa RN) 0803 (Given - Provider: Katelynn Skinner, ROLF) NIFEdipine (PROCARDIA XL) CR tablet 90 mg 90 mg, Oral, DAILY, First dose on Wed06/24/16 at 0900, Until Discontinued 1029 (Given - Provider: Katelynn Skinner, ROLF) nitroGLYCERIN (NITROGLYN) 2 % ointment 1 Inch (CANCELED) 1 Inch, Topical, EVERY 6 HOURS SCHEDULED (4 times per day), First dose on Wed06/22/16 at 2015, Until Discontinued, Wipe off old dose, apply to chest wall. 2014 (Not Given - Provider: Gunjan Mustafa RN - Reason: Patient/family declined) 0000 (Not Given - Provider: Gunjan Mustafa RN - Reason: Patient/family declined)0600 (Not Given - Provider: Gunjan Mustafa RN - Reason: Patient/family declined)1200 (Not Given - Provider: Katelynn Skinner RN - Reason: Patient/family declined)1217 (Patch Applied - Provider: Katelynn Skinner RN - Comment: patient reports pressure)1400 (Patch Removed - Provider: Katelynn Skinner RN) pantoprazole (PROTONIX) tablet 40 mg 40 mg, Oral, DAILY, First dose on Wed06/23/16 at 1630, Until Discontinued, Do not crush or chew 1535 (Given - Provider: Yesenia Omer RN) 0802 (Given - Provider: Katelynn Skinner, ROLF) pneumococcal vaccine (PNEUMOVAX 23) injection 0.5 mL 0.5 mL, Intramuscular, ONE TIME VACCINE, 1 dose, On Wed06/23/16 at 1015 1015 (Not Given - Provider: Katelynn Skinner RN - Reason: Patient/family declined - Comment: reports already had) ranolazine (RANEXA) SR tablet 500 mg 500 mg, Oral, EVERY 12 HOURS SCHEDULED (2 times per day), First dose on Wed06/23/16 at 2100, Until Discontinued 2025 (Given - Provider: Gunjan Mustafa RN) 08 (Given - Provider: Katelynn Skinner, ROLF) risperiDONE (RisperDAL) tablet 2 mg 2 mg, Oral, NIGHTLY, First dose on Wed06/22/16 at 2145, Until Discontinued 2225 (Given - Provider: Gunjan Mustafa RN) 2025 (Given - Provider: Gunjan Mustafa RN) roPINIRole (REQUIP) tablet 1.5 mg 1.5 mg, Oral, NIGHTLY, First dose on Wed06/22/16 at 2145, Until Discontinued 2225 (Given - Provider: Gunjan Mustafa RN) 2025 (Given - Provider: Gunjan Mustafa RN) venlafaxine (EFFEXOR-XR) XR capsule 300 mg 300 mg, Oral, NIGHTLY, First dose on Wed06/23/16 at 2100, Until Discontinued 2025 (Given - Provider: Gunjan Mustafa RN) PRN Medication Order 06/22/2016 06/23/2016 06/24/2016 acetaminophen (TYLENOL) tablet 650 mg 650 mg, Oral, EVERY 4 HOURS PRN, Starting on Wed06/22/16 at 1910, Until Wed06/24/16 at 2208, Pain, Maximum adult dose of acetaminophen is 4000 mg from all sources in 24 hours. 2001 (Given - Provider: Gunjan Mustafa RN) 230 (Given - Provider: Gunjan Mustafa RN)1216 (Given - Provider: Katelynn Skinner, ROLF)2024 (Given - Provider: Gunjan Mustafa RN) diphenhydrAMINE (BENADRYL) tablet 25-50 mg 25-50 mg, Oral, NIGHTLY PRN, Starting on Wed06/23/16 at 2236, Until Wed06/24/16 at 2208, Sleep 2255 (Given - Provider: Gunjan Mustafa RN) sodium chloride 0.9% syringe (COMPLETED) Intravenous, ONCE PRN, 1 dose, Starting on Wed06/23/16 at 1055, Until Wed06/23/16 at 1055, Line Care, Flush every shift or after IV medication, Radiology 1055 (Given - Provider: Payton Arroyo, SETTLEMENT PROCESSOR) [id number] MAA (DRAXIMAGE) injection 7.3 millicurie (COMPLETED) 7.3 millicurie, Intravenous, ONCE PRN, 1 dose, Starting on Wed06/23/16 at 1055, Until Wed06/23/16 at 1055, Radiology Procedure, Administration dose must be within 10% of the ordered dose for radiopharmaceutical medications., Radiology 1055 (Given - Provider: Payton Arroyo, SETTLEMENT PROCESSOR) xenon Xe-133 gas 12 millicurie (COMPLETED) 12 millicurie, Inhalation, ONCE PRN, 1 dose, Starting on Wed06/23/16 at 1055, Until Tu06/23/16 at 1055, Radiology Procedure, Administration dose must be within 10% of the ordered dose for radiopharmaceutical medications., Radiology 1055 (Given - Provider: Payton Arroyo, SETTLEMENT PROCESSOR) documented in this encounter Orders Medications Ordered That Gaurav ht Not Have Been Administered Count Last Ordered Date First Ordered Date pneumococcal vaccine (PNEUMO VAX 23) injection 0.5 mL 1 06/23/2016 apixaban (ELIQUIS) tablet 5 mg 1 06/22/2016 metoprolol (LOPRESSOR) tablet 25 mg 1 06/22 sertraline (ZOLOFT) tablet 150 mg 1 017 Nursing Count Last Ordered Date First Orde red Date ADMISSION 3 06/23/2016 06/22/2016 Consult Count Last Ordered Date First Orde red Date IP CONSULT TO CARDIOLOGY 1 06/22/2016 PT Count Last Ordered Date First Orde red Date IP CONSULT TO PHYSICAL THERAPY 1 06/23/2016 Transfer Count Last Ordered Date First Orde red Date BED REQUEST 1 06/22/2016 documented in this encounter Care Teams Marketing Content Manager Relationship Specialty Start Date End Date Uriel Alessandra August, [address] [facility] [place] [id number] PCP - General Nurse Practitioner-Family 08/29/14 09/20/16 documented as of this encounter
--- OUTSIDE RECORDS SUMMARY | 2024-02-16 15:00 | XMS_ITS | Encounter Summary ---
Author Organization [place] [address] Care Team Providers Care Sheep Boner Name Role Phone Alessandra Trevino August Primary Care Provider + Reason for Visit * Reason Comments Chest Pain patient c/o chest pa in with shortness of breath and cough that started this morning, given ASA 324mg PO and nitro x3 with some relief * Auth/Cert/Inpt Specialty Diagnoses / Procedures Referred By Contac t Referred To Contact Diagnoses Chest pain, unspecified type Referral ID Status Reason Start Date Expiration Date Visits Re quested Visits Authorized [id number] 1 1 Encounter Details Date Type Department Care Team (Late st Contact Info) Description 07/30/2016 10:32 AM EDT - 08/02/2016 5:11 PM EDT Emergency EDG 5D TCU [facility] [place] [address] Ernie Michel MD [address] [place] [id number] Tr Story MD [address] [place] [address] [place] [address] Chest pain, unspecified type (Primary Dx) Discharge [...] Sign Reading Time Taken Comments Blood Pressure 106/69 08/02/2016 11:28 AM EDT Pulse 72 08/02/2016 11:28 AM EDT Temperature 36.7 ??C (98 ??F) 08/02/2016 11: 28 AM EDT Respiratory Rate 18 08/02/2016 11:2 8 AM EDT Oxygen Saturation 95% 08/02/2016 11: 28 AM EDT Inhaled Oxygen Concentration - - Weight 113.9 kg (251 lb 3.2 oz) 08/02/2016 5:59 AM EDT Height 174 cm (5' 8.5 ) 07/30/2016 5:58 PM EDT Body Mass Index 37.64 07/30/2016 5:58 PM EDT documented in this encounter Medications [...] Tab by mouth daily. 30 Tab 1 08/02/2016 7 insulin glargine (LANTUS) 100 unit/mL SubQ Solution Subcutaneous (Inject under the skin) 15 Units every evening. 10 mL 12 08/02/2016 7 guaiFENesin (ROBITUSSIN) 100 mg/5 mL Oral Liquid Take 10 mL by mouth every 4 hours as needed. 08/02/2016 7 insulin glargine (LANTUS) 100 unit/mL SubQ Solution Subcutaneous (Inject under the skin) 15 Units every evening. 10 mL 12 08/02/2016 7 documented in this encounter Discharge Disposition Disposition Code Departure Means Destination Home or Self Usp documented in this encounter Progress Notes * Marcy Martinez, RN - 08/02/2016 5:11 PM EDT Pt discharged home via [facility] as provided by [facility], [place]. Discharge instructions, follow up appointments, new medications and possible side effects reviewed w/ patient and daughter. Verbalized understanding. Quick release and care everywhere forms sent to [facility] facility. All questions answered, patient feels adequate for discharge. All belongings sent with patient. PIV removed, catheter intact, dressing applied. Awaiting for transport to [facility] at this time. Marcy Martinez RN 05:00PM * Dolores Nieto, ROLF - 08/02/2016 3:57 PM EDT 08/02/16 1555 Discharge Planning Evaluation Actual Discharge Plan 08/02/16. CC final note. Spoke with Fransisco at [facility], [place]. Reports she isable to return. Informed him that she has home PT arranged. He reports they have a contract with [employer], , and they can be arranged for her transport home. [facility] will be paying for cost of taxi. No further needs. CC to sign off. * Dolores Nieto RN - 08/02/2016 3:21 PM EDT 08/02/16 1512 Discharge Planning Evaluation Actual Discharge Plan 08/02/16. CC follow up. Discussed PT recommendations with pt. Reports she has a walker at home. Agreeable to home PT. [facility] Reports she has someone that gives her a bath everyday. Per pt request, sent referral to [facility]. CC to follow. * Bello Devries MD - 08/02/2016 12:25 PM EDT Heart & Vascular Progress Note PATIENT: Faby Palm Primary Coke Oven Patcher: none She has been in the hospital for LOS: 0 days Patient presents to the hospital for: Chief Complaint Patient presents with ??? Chest Pain patient c/o chest pain with shortness of breath and cough that started this morning, given ASA 324mg PO and nitro x3 with some relief Cardiology following for: chest pain Subjective: Remains SOB. Denies CP. Objective: Vitals: 08/02/16 1128 BP: 106/69 Pulse: 72 Resp: 18 Temp: 98 ??F (36.7 ??C) SpO2: 95% I/O 24 hours: Intake/Output Summary (Last 24 hours) at 08/02/16 1225 Last data filed at 08/02/16 1101 Gross per 24 hour Intake 1160 ml Output 800 ml Net 360 ml I/O since Admission: -310 Telemetry: SR Exam: Pt in no distress sitting on edge of bed. Neck supple CVS - S1, S2 RRR RS -CTA, distant, no rales Abd - soft, NT, +BS Extremities- BLE edema Alert and oriented Mood and affect appropriate Medication: ??? amitriptyline 75 mg Oral Nightly ??? ARIPiprazole 30 mg Oral Daily ??? aspirin 81 mg Oral Daily ??? atorvastatin 20 mg Oral Nightly ??? ferrous sulfate 325 mg Oral BID WM ??? fUROsemide 20 mg Intravenous Once ??? gabapentin 100 mg Oral Nightly ??? glipiZIDE 10 mg Oral BID WM ??? hydrOXYzine 25 mg Oral BID ??? insulin aspart 1-10 Units Subcutaneous QID WM ??? insulin glargine 15 Units Subcutaneous QPM (Insulin) ??? isosorbide mononitrate 60 mg Oral Daily ??? linagliptin 5 mg Oral Daily ??? lisinopril 5 mg Oral Daily ??? miconazole Topical 2 times per day ??? NIFEdipine 90 mg Oral Daily ??? pantoprazole 40 mg Oral Daily ??? ranolazine 500 mg Oral 2 times per day ??? risperiDONE 2 mg Oral Nightly ??? roPINIRole 1.5 mg Oral Nightly ??? sertraline 150 mg Oral Daily ??? venlafaxine 300 mg Oral Nightly dextrose, diphenhydrAMINE, glucagon (human recombinant), guaiFENesin, miconazole, ondansetron OR ondansetron, oxyCODONE-acetaminophen Labs & Studies: All pertinent labs & radiologic studies for the past 24 hours have been reviewed Assessment & Plan: 1. CP-non cardiac -troponin negative, ECG without acute changes -lexiscan stress without ischemia 07/31 -echo normal 07/30 2. SOB -appears slightly overloaded will give a one time dose of IV lasix 3. CKD -stable 4. PAF -currently SR 5.CAD -ASA, statin, ranexa, imdur 6. HTN -ARABELLA, nifedipine Plan: Lasix 20mg IV x1 Ok to discharge after IV lasix given Pt seen in collaboration with Dr. Devries during rounds. Carmen Sainz APRN 08/02/2016 Complaining of LUONG and edema 1+ pitting RRR abd nt Plan additional diuretic Can go home on oral lasix if PCP desires. * Katelynn Beckford, PT - 08/02/2016 12:21 PM EDT 08/02/16 1210 PT Subjective Note Type Evaluation Patient Room/Unit 5943--Received order for PT eval and treat. PT Subjective Comments #1 Pt is agreeable to PT. States she is being discharged tomorrow. PT Subjective Comments #2 Pt reports she falls about once weekly at the [facility] where she lives; statesshe is too bull-headed to use the walker she has at home. Discharge Information Evaluation to serve as discharge summary if no further treatment provided before the facility discharge Admitting Diagnosis chest pain: Pt was admitted from [facility] with SOB, chest pain, cough. unable to find cause with cardiac workup. Past Med Hx COPD, CHF, DDD, DMII, HTN, suicide attempt, stroke 2009 with left sided hemiparesis, aflutter, ablation, joint replacement. Diagnostic Testing stress test neg, echo neg EF 55-60% Pain Screening PT/OT Patient Currently in Pain No Cognition Overall Cognitive Status WFL Orientation Level Oriented X4;Pleasant and Cooperative Safety Judgement Decreased awareness of need for safety Insight Decreased awareness of deficits Home Living/Prior Function Type of Home Assisted Living Home Layout One level;Ramped entrance Number of Steps 0 Home Equipment 2 wheel walker (did not use [employer]) Level of Assistance Ambulatory in home;Needs assistance with ADLs;Needs assistance with homemaking Lives With Alone Additional Comments has significant other who wants me to come home. Observation Presentation Patient seated edge of bed Posture obese female patient. Additional Comments assisted patient in donning socks and AFO and shoes UE Assessment LUE Assessment WFL RUE Assessment WFL LE Assessment LLE Assessment X LLE Additional Comments wears AFO for foot drop, ankle stability. mild residual weakness from CVA RLE Assessment WFL Transfers Sit to Stand Contact guard assist;Min assist (uses momentum/rocking.) Stand to Sit Contact guard assist;With verbal cues Gait Gait Contact guard assist;Min assist Gait Distance (Feet) 100 Feet Assistive Device None Pattern Slow chhaya (bilat hips ext rotated. trunk lean to opp side as swing limb) Weight Bearing Status Total Additional Comments Pt becomes very unsteady as she begins to fatigue. Stops frequently to rest andreaches for meza. After resting, instructed pt with use of rolling walker for allowance for farther distances and increased safety. demonstrates amb with walker 20', CGA/SBA. Vitals Spo2 96% on room air after amb. Very SOBOE. requires about 90 seconds and VCs for PLB to recover. AM PAC: How much help from another [...] PAC Mobility CMS G Code Modifier CK PT G-Codes Functional Assessment Tool Used AMPA Score 18 Functional Limitation Mobility: Walking and moving around Mobility: Walking and Moving Around Current Status (G8978) CK Mobility: Walking and Moving Around Goal Status (G8979) CJ Balance Sitting Balance 4+/5 moves/returns trunkal midpoint 1-2 inches in multiple planes Standing Balance 3/5 indep, without support for up to 30 seconds Education Education Role of Therapy;Safety with mobility;Cues for proper technique;Discharge planning;Up withassistance only Patient Safety Patient Safety Nursing notified of status (left patient in bathroom. agrees to pull cord when finished) Assessment Assessment Decreased gait;Decreased functional mobility;Decreased balance;Decreased activity tolerance Prognosis Good;With continued PT s/p acute discharge Rationale for Skilled Therapy Fall Risk Goals PT GOALS (Yes/No) Yes Add Goals Pt will perform Sit to Stand With stand by assist Pt Will Ambulate 101-150 feet;With 2 wheel walker;With stand by assist Goal Formulation With patient Time for Goal Achievement 3 days Plan Treatment/Interventions Gait training;Bed mobility;Neuromuscular re- education;Balance training;ADL retraining;Functional transfer training;Increase activity tolerance PT Frequency 3-5x/week Recommendation PT Recommendation Rehab;Home PT Therapy Equipment Recommended 2 Wheel walker (needs to start using existing walker) Time In / Time Out [id number] IP PT Evaluation Minutes 10 IP PT Treatment Minutes 10 * Tr Story MD - 08/02/2016 10:08 AM EDT SEP Hospitalist Active Hospital Problems Diagnosis ??? *Precordial pain ??? 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 Atrial flutter (HCC) ??? S/P ablation of atrial flutter ??? Acute on chronic diastolic (congestive) heart failure (HCC) ??? Coronary artery disease involving [place] coronary artery of [place] heart with unstable angina pectoris (HCC) ??? Hemiparesis affecting left side as late effect of stroke (HCC) ??? Essential hypertension Assessment: * chest pain / dyspnea - suspect stable angina. Admit for rule out. Cards eval - troponins neg. No ischemic EKG changes - stress test negative ? * CAD - last cath Dec 60-70% prox LAD lesion - imdur and ranexa recently started ? * parox afib/flutter -ablation Dec -no anticoag due to fall risk ? * type 2 diabetes - glipizide and linagliptin. low carb diet. Not-controlled. Add lantus - on arabella inhib ? * htn - arabella inhib, nifedipine ? * CKD, stage 3 - Cr at baseline ?? * weakness * cough - suspect allergies. Rec claritin. Add robitussin Plan: Home after PT eval. Subjective: Chief Complaint Patient presents with ??? Chest Pain patient c/o chest pain with shortness of breath and cough that started this morning, given ASA 324mg PO and nitro x3 with some relief HPI: Doing okay. Has a mild cough. Objective: Vitals: 08/01/16 2335 08/02/16 0457 08/02/16 0559 08/02/16 0717 BP: 122/49 134/57 136/68 BP Location: Right arm Right arm Right arm Patient Position: Semi Fowlers Semi Fowlers Sitting Pulse: 76 79 98 Resp: 18 Temp: 98.6 ??F (37 ??C) 98.4 ??F (36.9 ??C) 97.9 ??F (36.6 ??C) TempSrc: Oral Oral Oral SpO2: 93% 93% 94% Weight: 251 lb 3.2 oz (113.9 kg) Height: I/O last 3 completed shifts: In: 1040 [P.O.:1040] Out: 500 [Urine:500] Weight: 251 lb 3.2 oz (113.9 kg) Gen: in bed, sleepy HEENT: atraumatic, normocephalic,PERRLA EOMI, no JVD, Cardiovascular: RRR without murmurs, rubs, or gallops Lungs: CTA, decreased to bases Abdomen: positive bowel sounds, soft, non-tender to palpation, no hepatosplenomegaly appreciated, no masses Extremities: no cyanosis, clubbing trace pitting edema Neuro: no focal neurological deficits, strength and sensation normal, Skin: clear, dry, and intact, no rashes Psyche: Normal mood and affect Heme: No bleeding or bruising Musculoskeletal: No muscle or joint pain or redness Results: Pertinent labs and radiographic tests from 08/02/16 have been reviewed Tr Story MD 08/02/2016 10:08 AM * Marcy Martinez RN - 08/02/2016 7:45 AM EDT Patient is alert & oriented x4, V/S stable Spo2 >90% on RA, afebrile. NSR on monitor. Denies any pain at this time. Ananya-areas redness, barrier cream and miconazole powder in use. No other areas of skin breakdown noted. Stress incontinence at times with coughing or sneezing. Ambulates with standby assistance, left foot boot in use. Encouraged Q2 hour turn, repositions independently in bed. PIVL c/d/i, saline locked. SCDs in place. Updated on plan of care, discussed blood sugar control. Bed alarm on. Call light, bedside table and personal belongings within reach. Will continue to monitor. Marcy Martinez RN 7:48 AM * Janina Lockhart RN - 08/02/2016 12:48 AM EDT Patient is alert and oriented x4, VSS, NSR on monitor Complains of arthritis pain Controlled with scheduled Gabapentin Skin assessed, no new issues noted Patient encouraged to turn q2h to prevent skin breakdown Patient able to turn self independently in bed Oxygen saturation >90%, RA PIV L AC, C/D/I, flushed well SCDs in place Updated on POC Fall precautions addressed Bed in lowest postion Bed alarm activated Call light within reach Will continue to monitor * Marcy Martinez RN - 08/01/2016 3:56 PM EDT Patient alert & oriented x4. V/S stable Spo2 >92% on RA, afebrile. NSR on monitor. Denies any chest pain, dizziness. Mild SOB with exertion. Ananya-area/ abdominal folds with redness and excoriation due to episodes of incontinence. Miconazolepowder and barrier cream applied. Patient repositions independently in bed, standby assist with useof Left foot boot/breace. No other areas of skin breakdown noted. PIVL c/d/i, saline locked. Updated on plan of care. Educated on new medication (Lantus) and diabetes control with increased in fruits and vegetables and carbohydrate counting upon returning home. All questions answered. Bed alarm on. Call light, bedside table and personal belongings within reach. Will continue to monitor. Marcy Martinez RN 3:59 PM * Tr Story MD - 08/01/2016 11:02 AM EDT SEP Hospitalist Active Hospital Problems Diagnosis ??? *Precordial pain ??? 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 Atrial flutter (HCC) ??? S/P ablation of atrial flutter ??? Acute on chronic diastolic (congestive) heart failure (HCC) ??? Coronary artery disease involving [place] coronary artery of [place] heart ??? Hemiparesis affecting left side as late effect of stroke (HCC) ??? Essential hypertension Assessment: * chest pain / dyspnea - suspect stable angina. Admit for rule out. Cards eval - troponins neg. No ischemic EKG changes - stress test negative ? * CAD - last cath Dec 60-70% prox LAD lesion - imdur and ranexa recently started ? * parox afib/flutter -ablation Dec -no anticoag due to fall risk ?? * type 2 diabetes - glipizide and linagliptin. low carb diet. Not-controlled. Add lantus - on arabella inhib ? * htn - arabella inhib, nifedipine ? * CKD, stage 3 - Cr at baseline * weakness ?? Plan: PT safia for d/c planning. I suspect deconditioning playing a role in her dyspnea. Subjective: Chief Complaint Patient presents with ??? Chest Pain patient c/o chest pain with shortness of breath and cough that started this morning, given ASA 324mg PO and nitro x3 with some relief HPI: feels okay. Still with mild dyspnea at rest. She feels weak. Her legs don't work right. she would like PT to see her. Objective: Vitals: 08/01/16 0015 08/01/16 0141 08/01/16 0446 08/01/16 0850 BP: 151/58 137/55 145/58 BP Location: Right arm Right arm Right arm Patient Position: Supine Supine Semi Fowlers Pulse: 80 85 83 Resp: 18 18 18 Temp: 97.6 ??F (36.4 ??C) 97.8 ??F (36.6 ??C) 98.1 ??F (36.7 ??C) TempSrc: Oral Oral Oral SpO2: 94% 90% 91% Weight: 251 lb 3.2 oz (113.9 kg) Height: I/O last 3 completed shifts: In: 600 [P.O.:600] Out: 1150 [Urine:1150] Weight: 251 lb 3.2 oz (113.9 kg) Gen: no acute distress, alert, oriented, obese, in bed HEENT: atraumatic, normocephalic,PERRLA EOMI, no JVD, Cardiovascular: RRR without murmurs, rubs, or gallops Lungs: CTA, decreased to bases Abdomen: positive bowel sounds, soft, non-tender to palpation, no hepatosplenomegaly appreciated, no masses Extremities: no cyanosis, clubbing trace pitting edema Neuro: no focal neurological deficits, strength and sensation normal, Skin: clear, dry, and intact, no rashes Psyche: Normal mood and affect Heme: No bleeding or bruising Musculoskeletal: No muscle or joint pain or redness Results: Pertinent labs and radiographic tests from 08/01/16 have been reviewed Tr Story MD 08/01/2016 11:02 AM * Manju Chen, RN - 07/31/2016 11:33 PM EDT Pt is alert/oriented X3. VSS. Sating >90% on RA.NSR on the monitor. Denies pain at this times. Did complain of feeling SOB. Lungs sounded clear and diminished. The pressure in her chest occurred after her dinner. I asked her if she ever had indigestion or anything in her past and she stated onlywhen she was . Pt skin is red and excoriated in her ananya area and abdominal folds. Powder has been applied. Pt SCD's are in place and pt has been educated on their importance. Pt is an stand by assist in the room. Bed alarm is on for safety. Call light within reach. Will continue to monitor. * Joselyn Krause RN - 07/31/2016 5:25 PM EDT Pt. Alert and oriented, VSS, NSR on manager monitoring. Complaints of CP today after stress test today, pt. eating with no visual signs of distress noted. Pt. stated she was SOA. VSS checked O2 sats, 95% on room air, placed on 2lnc for comfort. Pt. Given prn percocet for pain and scheduled daily meds.CP resolved with no further episodes. Pt. Resting comfortably. Up with assist x1 to bathroom. Skin assessment performed redness and Excoriation noted to ananya area and abdominal folds, otherwise skin intact. Call light in reach and bed alarm on. Will continue to monitor. * Maureen Canada RN - 07/31/2016 2:23 PM EDT 07/31/16 1421 Assessment Complete ED Screening Completed Initial screening complete, post-acute needs identified, assessment to follow Actual Discharge Plan 07/31/16: CC Initial Assessment: Met with patient at bedside. She is from assisted living at [facility]. She does not want to immediately return there she would like to get some rehab first, will ask for PT referral. PCP is [facility], and is able to afford her medications ok. CC will continue to follow for possible rehab needs. Completed by CC/SW Yes * Bello Devries MD - 07/31/2016 11:01 AM EDT Cardiology Note: Faby Palm Today's Date: 07/31/2016 LOS: 0 days Subjective: sleeping, awakens to loud voice. States having chest pain and shortness of breath when awakened. Falls back to sleep. Objective: Vitals: Visit Vitals ??? BP 181/88 (BP Location: Right arm, Patient Position: Semi Fowlers) ??? Pulse 78 ??? Temp 98 ??F (36.7 ??C) (Oral) ??? Resp 18 ??? Ht 5' 8.5 (1.74 m) ??? Wt 253 lb (114.8 kg) ??? SpO2 99% ??? No ??? BMI 37.91 kg/m2 Intake and Output: Intake/Output Summary (Last 24 hours) at 07/31/16 1101 Last data filed at 07/31/16 0821 Gross per 24 hour Intake 240 ml Output 950 ml Net -710 ml Weight: Wt Readings from Last 3 Encounters: 07/31/16 253 lb (114.8 kg) 06/23/16 255 lb 1.6 oz (115.7 kg) 06/22/16 271 lb (122.9 kg) Labs: Lab Results Component Value Date HGB 12.1 07/30/2016 HCT 36.7 07/30/2016 PLT 174 07/30/2016 NA 139 07/30/2016 K 4.2 07/30/2016 CREATININE 1.43 (H) 07/30/2016 BUN 20 07/30/2016 TSH 3.090 12/27/2015 INR 1.03 12/28/2015 Last Echocardiogram: Results for orders placed during the hospital encounter of 06/22/16 EC ECHOCARDIOGRAM COMPLETE W DOPPLER AND COLOR FLOW MAPPING Impression CONCLUSIONS Normal LV size and function. LVEF 65-70%. Mild concentric hypertrophy. Grade 1 diastolic dysfunction The right ventricle is normal in size and function. Mild left atrial dilatation. Trace mitral regurgitation. Mild to moderate tricuspid regurgitation. RVSP estimated to be:.37 mmHg + JVP. No results found for this or any previous visit. Last Vascular Study: No results found for this or any previous visit. Last Holter: No results found for this or any previous visit. Last Stress: Results for orders placed during the hospital encounter of 09/09/15 ST STRESS TEST LEXISCAN Impression Exercise ECG Report [facility] Interpretive Statements Stress Test Lexiscan Reason for Exam: chest pain Ordering Diagnosis: same Resting HR: 76 Peak HR: 88 Resting B/P 125/57 PeaK B/P 125/57 1. Lexiscan 0.4 mg was given IV push at 30 seconds into protocol. 2. Lexiscan injection was done without low level exercise. 3. Termination of test due to protocol completion. 4. Symptoms: None 5. No Aminophylline given 6. Myoview scan report pending. 7. Resting EK. Arrhythmias: 9. Conclusion: SR with low voltage at rest Non ischemic pharmacologic GXT by EKG criteria Electronically Signed On 09-10-2015 9:57:25 EDT by Tr Wayne MD CATH :No results found. 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 Mid LAD of approximately 70% but difficult to quantify due to discrete lesion at point of trifurcation with a non flow limiting lesion based on FFR of 0.92 -asa, statin, ARABELLA, imdur, procardia, ranexa HTN -ARABELLA, procardia Paroxysmal Afib/blutter -ASA -NSR now Plan: ?? Lexiscan results pending Ruth Agee APRN Addendum: Echo and Lexiscan negative Faby Andrews APRN 07/31/2016 4:25 PM Sleeping on my visit cta rrr abd nt Ok for discharge * Tr Story MD - 07/31/2016 8:57 AM EDT SEP Hospitalist Active Hospital Problems Diagnosis ??? *Precordial pain ??? 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 Atrial flutter (HCC) ??? S/P ablation of atrial flutter ??? Acute on chronic diastolic (congestive) heart failure (HCC) ??? Coronary artery disease involving [place] coronary artery of [place] heart ??? Hemiparesis affecting left side as late effect of stroke (HCC) ??? Essential hypertension Assessment: * chest pain / dyspnea - suspect stable angina. Admit for rule out. Cards eval - troponins neg. No ischemic EKG changes ?? * CAD - last cath Dec 60-70% prox LAD lesion - imdur and ranexa recently started ?? * parox afib/flutter -ablation Dec -no anticoag due to fall * type 2 diabetes - glipizide. Change to low carb diet - on arabella inhib ?? * htn - arabella inhib, nifedipine ?? * CKD, stage 3 - Cr at baseline Plan: Seen by cards. Stress test today. Back to room. Still with chest pain and dyspnea. Exam as below. Await results of stress test. Subjective: Chief Complaint Patient presents with ??? Chest Pain patient c/o chest pain with shortness of breath and cough that started this morning, given ASA 324mg PO and nitro x3 with some relief HPI: Events noted. Still having chest pain early this morning. Objective: Vitals: 07/30/16 2257 07/31/16 0506 07/31/16 0509 07/31/16 0750 BP: 137/69 124/57 181/88 BP Location: Right arm Right arm Right arm Patient Position: Semi Fowlers Semi Fowlers Semi Fowlers Pulse: 88 77 78 Resp: 18 18 18 Temp: 98 ??F (36.7 ??C) 98 ??F (36.7 ??C) 98 ??F (36.7 ??C) TempSrc: Oral Oral Oral SpO2: 93% 95% 99% Weight: 253 lb (114.8 kg) Height: I/O last 3 completed shifts: In: 240 [P.O.:240] Out: 600 [Urine:600] Weight: 253 lb (114.8 kg) Exam 07/31 - patient gone Gen: no acute distress, alert, oriented, obese HEENT: atraumatic, normocephalic,PERRLA EOMI, no JVD, Cardiovascular: RRR without murmurs, rubs, or gallops Lungs: CTA, decreased to bases Abdomen: positive bowel sounds, soft, non-tender to palpation, no hepatosplenomegaly appreciated, no masses Extremities: no cyanosis, clubbing trace pitting edema Neuro: no focal neurological deficits, strength and sensation normal, Skin: clear, dry, and intact, no rashes Psyche: Normal mood and affect Heme: No bleeding or bruising Musculoskeletal: No muscle or joint pain or redness Results: Pertinent labs and radiographic tests from 07/31/16 have been reviewed Tr Story MD 07/31/2016 8:57 AM * Manju Chen RN - 07/31/2016 1:30 AM EDT Pt is alert/oriented X3. VSS. Pt HR and BP elevated after she had went to the bathroom. She also complained of chest pain. I administered 2 Percocet and a stat EKG. The pain improved and the EKG showed now change per MD. I informed pt to call out for assist with ambulation. Bed alarm is broken and house keeping has been informed. Pt sating >90% on RA. Skin has redness to abd folds and ananya area. Pt wears a diaper and I informed the pt that we need to take it off. She refused its removal. I educated her on how it holds the moisture close to her skin and that's why it is so red. I applied powder and keep checking to make sure it stays dry. Pt reports being incontinent at night. Pt is a stand by in the room. I showed pt the GWN and whiteboard. SCD's have been ordered awaiting there arrival. Call light within reach. Will continue to monitor. * Mariama Mendes RN - 07/30/2016 7:59 PM EDT 4 eyes skin assessment complete with Gurinder BANSAL, redness and excoriation in abd folds, powder ordered per protocol, Will continue to monitor * Astrid Wadr RN - 07/30/2016 6:25 PM EDT Patients admission paperwork and required documents completed upon admission. Heart monitor applied. Vital signs obtained. Height and weight collected. Allergies reviewed. Patient does have advanced directive- copy is at [facility]. Personal preferences reviewed. Patient has not traveled within the past 30 days. Activities of daily living gone over with patient. PIC form filled out and signed on computer. Placed on summary page. Valuables form signed on computer. Discharge planning and learning assessment completed. Mobility score and joe scale filled out. Flu vaccine received prior to admission. Up to date on pneumonia vaccine. Patient denies smoking. PIC bag and handbook discussed with patient and communication journal placed on bedside table. A little bit about me paper filled out and placed on bulletin board in patients room. [place] meds unable to be reviewed at this time, [facility] to call us back at a later time. GWN and whiteboard explained to patient. Videos watched on hospital safety and pain. Skin to be assessed. Patient resting in bed with call light within reach. Will continue to monitor. * Mariama Mendes RN - 07/30/2016 6:16 PM EDT Attempts made to call [facility] to complete [place] medications, Multiple phone numbers tried unsuccessfully, Attempted to call pharmacies on file but [facility] requested to leave a voicemail and [facility] pharmacy is closed for the day, Will continue to try and obtain [facility] list 18:25- Spoke with someone at [facility] who stated she would obtain medication list as well as the last time patient took medication and call back in about 10 minutes. * Jacqueline Severino RN - 07/30/2016 1:13 PM EDT 07/30/16 1310 ED Screening ED Screening Completed Initial screening complete, post-acute needs identified, assessment to follow Medical Record Reviewed Yes Who you interviewed In person interview with patient What brought the patient to the ED chest pain Where did the patient come from? Other (Comment) (assiated living semi private) Support Systems (see contacts) Issues related to prior living situation has glucoses meter and supplies Activities of Daily Living Unable to Assess Mental Status Alert and oriented Identified psychosocial/financial issues (meds from facility) Issues with non-compliance Yes (follow no special diet if they told me I just ignored it ) Anticipated post-acute care needs Home (verified address,plans to have transportation home) Additional comments regarding post acute care needs denies home health Potential barriers to discharge No Observation Information Provided to Patient/Family Yes form signed Does patient meet high risk triggers? History of non-compliance/nonadherence to medical plan documented in this encounter H&P Notes * Tr Story MD - 07/30/2016 1:42 PM EDT Internal Medicine History and Physical Date of Admission: 07/30/2016 Admitting Physician: Tr Story MD Primary Care Physician: Alessandra Trevino August, Chief Complaint Patient presents with ??? Chest Pain patient c/o chest pain with shortness of breath and cough that started this morning, given ASA 324mg PO and nitro x3 with some relief Faby Palm is a 66 y.o. female who presents with the acute onset of mid- sternal chest tightness and shortness of breath that occurred this morning. It felt like someone was sitting on her chest.She had a non-productive cough. Not associated with activity. He was nauseated, sweaty, and clammy.She lives in assisted living and occurred while she was at adult day care. She hasn't felt well over the past few days. No fevers. She has chronic lower extremity edema that is stable. She still has symptoms at this time. Past Medical History: Diagnosis Date ??? Atrial [...] Allergen Reactions ??? Compazine [Prochlorperazine Edisylate] ??? [place] ??? Pentazocine Hcl ??? Prochlorperazine Maleate ??? Talwin [Pentazocine Lactate] Current Facility-Administered Medications: ??? sodium chloride 0.9% syringe 5-10 mL, 5-10 mL, Intravenous, PRN, Claire Pineda, NIKO Current Outpatient Prescriptions: ??? acetaminophen 325 mg Oral Tab, Take 650 mg by mouth every 4 hours as needed for Pain., Disp: , Rfl: ??? amitriptyline (ELAVIL) 75 mg Oral Tablet, Take 75 mg by mouth nightly., Disp: , Rfl: ??? ARIPiprazole (ABILIFY) 10 mg Oral Tablet, Take 30 mg by mouth daily., Disp: , Rfl: ??? aspirin 81 mg Oral Tablet, Delayed Release (E.C.), Take 81 mg by mouth daily., Disp: , Rfl: ??? atorvastatin (LIPITOR) 20 mg Oral Tablet, Take 1 Tab by mouth nightly., Disp: 30 Tab, Rfl: 1 ??? ferrous sulfate 325 mg (65 mg iron) Oral Tablet, Take 1 Tab by mouth 2 times daily (with meals)., Disp: 60 Tab, Rfl: 5 ??? gabapentin (NEURONTIN) 100 mg Oral Capsule, Take 100 mg by mouth nightly., Disp: , Rfl: ??? glipiZIDE (GLUCOTROL) 10 mg Oral Tablet, Take 10 mg by mouth 2 times daily (with meals)., Disp:, Rfl: ??? hydrOXYzine (ATARAX) 25 mg Oral Tablet, Take 25 mg by mouth 2 times daily. Indications: ANXIETY, Disp: , Rfl: ??? isosorbide mononitrate (IMDUR) 60 mg Oral Tablet Sustained Release 24 hr, Take 1 Tab by mouth daily., Disp: 30 Tab, Rfl: 1 ??? lisinopril (PRINIVIL;ZESTRIL) 10 mg Oral Tablet, Take 5 mg by mouth daily., Disp: , Rfl: ??? NIFEdipine (PROCARDIA XL) 90 mg Oral Tablet Extended Rel 24 hr, Take 1 Tab by mouth daily., Disp: 30 Tab, Rfl: 1 ??? pantoprazole (PROTONIX) 40 mg Oral Tablet, Delayed Release (E.C.), Take 1 Tab by mouth daily., Disp: 30 Tab, Rfl: 1 ??? ranolazine (RANEXA) 500 mg Oral Tablet Sustained Release 12 hr, Take 1 Tab by mouth every 12 hours., Disp: 60 Tab, Rfl: 1 ??? risperiDONE (RISPERDAL) 1 mg Oral Tablet, Take 2 mg by mouth nightly., Disp: , Rfl: ??? roPINIRole (REQUIP) 0.5 mg Oral Tablet, Take 1.5 mg by mouth nightly., Disp: , Rfl: ??? sitaGLIPtin (JANUVIA) 100 mg Oral Tablet, Take 100 mg by mouth daily., Disp: , Rfl: ??? venlafaxine (EFFEXOR-XR) 150 mg Oral Capsule, Sust. Release 24 hr, Take 300 mg by mouth nightly., Disp: , Rfl: Social History Social History [...] of Onset ??? Cancer Mother larnyx cancer Immunization History Administered Date(s) Administered ??? Influenza Vaccine Quadrivalent PF 12/27/2015 ??? Pneumococcal Conjugate Vaccine 13 Valent 12/26/2015 ROS Review of Systems: The listed systems were reviewed and reveal the following in addition to any already discussed in the HPI: ?? Constitutional: No fever, chills, or weight loss ?? Eyes: No visual disturbance ?? HENT: No headache, hearing loss, epistaxis, sore throat, or hoarseness ?? Lungs: + SOB, cough, hemoptysis, or pleuritic chest pain ?? Cardiovascular: + chest pain, PND or orthopnea ?? Endocrine: No polyuria, polydypsia, or polyphagia ?? GI: No abdominal pain, + nausea, vomiting, hematemesis, diarrhea, constipation, melena, hematochezia, or bright red blood per rectum ?? : No dysuria, frequency, hesitancy, or hematuria ?? Musculoskeletal: No myalgias or muscle weakness ?? Neurologic: No focal numbness or weakness ?? Skin: No edema, jaundice, or skin discoloration ?? Psychiatric: No depression, homicidal or suicidal ideation Hx of dep/anx ?? Hematologic/Allergic: No history of blood clots, bleeding or easy bruising Vital Signs Visit Vitals ??? BP 133/62 ??? Pulse 68 ??? Temp 97.5 ??F (36.4 ??C) (Oral) ??? Resp 13 ??? Ht 5' 8.5 (1.74 m) ??? Wt 225 lb (102.1 kg) ??? SpO2 98% ??? BMI 33.71 kg/m2 Gen: no acute distress, alert, oriented, obese HEENT: atraumatic, normocephalic,PERRLA EOMI, no JVD, Cardiovascular: RRR without murmurs, rubs, or gallops Lungs: CTA, decreased to bases Abdomen: positive bowel sounds, soft, non-tender to palpation, no hepatosplenomegaly appreciated, no masses Extremities: no cyanosis, clubbing trace pitting edema Neuro: no focal neurological deficits, strength and sensation normal, Skin: clear, dry, and intact, no rashes Psyche: Normal mood and affect Heme: No bleeding or bruising Musculoskeletal: No muscle or joint pain or redness Radiology/ Procedures/Labs Pertinent imaging and laboratory studies were reviewed. Active Hospital Problems Diagnosis ??? *Precordial pain ??? Atrial flutter (HCC) ??? S/P ablation of atrial flutter ??? Acute on chronic diastolic (congestive) heart failure (HCC) ??? Coronary artery disease involving [place] coronary artery of [place] heart ??? Hemiparesis affecting left side as late effect of stroke (HCC) ??? Essential hypertension Assessment and Plan * chest pain / dyspnea - suspect stable angina. Admit for rule out. Cards eval - troponins neg. No ischemic EKG changes * CAD - last cath Dec 60-70% prox LAD lesion - imdur and ranexa recently started * parox afib/flutter -ablation Dec -no anticoag due to fall * htn * CKD, stage 3 - Cr at baseline * h/o stroke with residual left weakness See chart orders for detailed plan. Prior Tr Story MD 07/30/2016 1:42 PM documented in this encounter Consult Notes * Bello Devries MD - 07/30/2016 5:30 PM EDTAssociated Order(s): [place] [facility] [place] [facility] Cardiology Consultation ADMISSION: 07/30/2016 PATIENT: Faby Palm [birth year] PCP: Alessandra Trevino August, PROPERTY OFFICER I would like to thank Tr Story MD for requesting me to see your Faby Palm in consultation chest pain Moderate intensity Mid sternal Associated sob No radiation. No dysphagia odynophagia Onset rest Ongoing lasted 9 hours. Past Medical History Past Medical History: Diagnosis Date ??? Atrial flutter (HCC) EPS, AFL Ablation on 12/31/[address] Tee ??? CHF (congestive heart failure) ([facility]) ??? COPD (chronic obstructive pulmonary disease) ([facility]) ??? DDD (degenerative disc disease) ??? Diabetes mellitus ([facility]) ??? Hypertension ??? RLS (restless legs syndrome) ??? Stroke ([facility]) 2010 left side affected ??? Suicide attempt ([facility]) ??? Yeast infection recurrent Medication No current [...] mouth 2 times daily. Indications: ANXIETY ??? isosorbide mononitrate (IMDUR) 60 mg Oral Tablet Sustained Release 24 hr Take 1 Tab by mouth daily. 30 Tab 1 ??? lisinopril (PRINIVIL;ZESTRIL) 10 mg Oral Tablet Take 5 mg by mouth daily. ??? NIFEdipine (PROCARDIA XL) [...] 300 mg by mouth nightly. Scheduled Meds: Continuous Infusions: Past Surgical History Past Surgical History: Procedure Laterality Date ??? [...] Allergen Reactions ??? Compazine [Prochlorperazine Edisylate] ??? [place] ??? Pentazocine Hcl ??? Prochlorperazine Maleate ??? Talwin [Pentazocine Lactate] Family History Family History Problem Relation Age of Onset ??? Cancer Mother larnyx cancer Social History Social History Substance Use Topics ??? Smoking status: Never Smoker ??? Smokeless tobacco: Never Used ??? Alcohol use No Review of Systems Per [facility] nursing notes ,remainder of ROS was reviewed and negative Objective: Visit Vitals ??? BP 140/71 ??? Pulse 61 ??? Temp 97.5 ??F (36.4 ??C) (Oral) ??? Resp 14 ??? Ht 5' 8.5 (1.74 m) ??? Wt 225 lb (102.1 kg) ??? SpO2 99% ??? BMI 33.71 kg/m2 General: alert, appears stated age and cooperative Oropharynx: normal Neck: nontender Lung: clear to auscultation bilaterally Heart: regular rate and rhythm, S1, S2 normal, no murmur, click, rub or gallop Abdomen: soft, non-tender. Bowel sounds normal. No masses, no organomegaly Extremities: extremities normal, atraumatic, no cyanosis or edema Pulses: 2+ and symmetric bilaterally,brachial, radial, inquinal, popliteal, posterior tibial and dorsalis pedis Skin: warm and dry, no hyperpigmentation, vitiligo, or suspicious lesions and Warm and dry. no hyperpigmentation, vitiligo, or suspicious lesions Neuro: normal without focal findings, FOUZIA, reflexes normal and symmetric and mental status, speech normal, alert and oriented x iii Diagnostic tests Lab Results Component Value Date WBC 7.6 07/30/2016 HGB 12.1 07/30/2016 HCT 36.7 07/30/2016 PLT 174 07/30/2016 Lab Results Component Value Date CREATININE 1.43 (H) 07/30/2016 BUN 20 07/30/2016 NA 139 07/30/2016 K 4.2 07/30/2016 CL 101 07/30/2016 CO2 26 07/30/2016 Lab Results Component Value Date CHOLESTEROL 177 09/09/2015 TRIG 375 (H) 09/09/2015 HDL 35 (L) 09/09/2015 LDLCALC 67 09/09/2015 Lab Results Component Value Date ALT 10 06/22/2016 AST 12 06/22/2016 Lab Results Component Value Date TSH 3.090 12/27/2015 Lab Results Component Value Date INR 1.03 12/28/2015 No results found for: CKTOTAL, CKMB, CKMBINDEX, TROPONINI Xr Chest Pa And Lateral Result Date: 07/30/2016 XR CHEST PA AND LATERAL 07/30/2016 11:18 AM HISTORY: -CHEST PAIN COMPARE: 06/22/2016. Heart size borderline. Evaluation of the lung bases is somewhat limited due to prominent overlying soft tissues, which generate increased density overlying the lower lungs. A row of surgical sutures is present in the peripheral right upper lobe. There are coarse atelectatic markings at the right lung base, similarto prior, due in part to overlying breast shadow. Right mid and upper lungs are clear. No pleural fluid is seen. Borderline cardiac size. Mild relative increased density overlying right lower lung, but appearanceis similar to prior 06/22/2016 exam and may be due entirely to prominent overlying breast tissue. Mild right basal atelectasis not excluded. Ek Ekg 12 Lead Result Date: 07/30/2016 NOTICE: Preliminary tracing available for review; Final Interpretation by physician to follow. Stationary ECG Study [facility] Interpretive Statements SINUS BRADYCARDIA LOW QRS VOLTAGE IN PRECORDIAL LEADS ANTERIOR MYOCARDIAL INFARCTION, PROBABLY OLD INFERIOR MYOCARDIAL INFARCTION, PROBABLY OLD No change since previous ECG Electronically Signed On 07-30-2016 13:31:22 EDT by Rome Harris MD EKG: Interpreted by mE normal EKG, normal sinus rhythm, poor anterior R wave. Telemetry Interpreted by me normal sinus The most recent cardiovascular imaging studies availabe in [facility] EMR were reviewed at time of consultation Assessment: Code Status Prior Active Hospital Problems Diagnosis ??? *Precordial pain ??? Atrial flutter (HCC) ??? S/P ablation of atrial flutter ??? Acute on chronic diastolic (congestive) heart failure (HCC) ??? Coronary artery disease involving [place] coronary artery of [place] heart ??? Hemiparesis affecting left side as late effect of stroke (HCC) ??? Essential hypertension Plan: For complete plan of care please also refer to orders Intermediate severity disease at trifurcation in lad Need to document anterior ischemia prior to revasck lexiscan myoview. Echo. documented in this encounter ED Notes * Payton Armenta RN - 07/30/2016 3:22 PM EDT Report given to ROLF Albarran * Claire Pineda APRN - 07/30/2016 10:32 AM EDT Chief Complaint Patient presents with ??? Chest Pain patient c/o chest pain with shortness of breath and cough that started this morning, given ASA 324mg PO and nitro x3 with some relief HPI Comments: Faby Palm is a 66 y.o. with multiple comorbidities including atrial flutter status post ablation in 2016, CHF, hypertension, COPD, CAD blockage to LAD-not flow limiting that presents to the emergency department with complaints of chest pain to the left side of her chest with associated nausea and shortness of breath. Patient states she has had a cough for some time now but denies it being productive, fevers or chills. She is a nonsmoker. Patient states she was sitting at hertherapy appointment today when she felt a pressure sensation to her mid chest. Patient states she was not anxious or stressed at that time. She denies any lower extremity swelling. Denies any additional complaints at this time. Patient is a 66 y.o. female presenting with chest pain. History provided by: Patient Chest Pain Associated symptoms: nausea and shortness of breath Associated symptoms: no abdominal pain, no cough, no fever, no palpitations and no vomiting Allergies Allergen Reactions ??? Compazine [Prochlorperazine Edisylate] ??? [place] ??? Pentazocine Hcl ??? Prochlorperazine Maleate ??? [...] Tablet Take 1 Tab by mouth nightly. 06/24/16 Campbell Huston MD ferrous sulfate 325 [...] 2 times daily. Indications: ANXIETY Provider, Historical isosorbide mononitrate (IMDUR) 60 mg Oral Tablet Sustained Release 24 hr Take 1 Tab by mouth daily.06/24/16 Campbell Huston MD lisinopril (PRINIVIL;ZESTRIL) 10 mg Oral Tablet Take 5 mg by mouth daily. Provider, Historical NIFEdipine (PROCARDIA XL) 90 mg Oral Tablet Extended Rel 24 hr Take 1 Tab by mouth daily. 06/24/16 Campbell Huston MD pantoprazole (PROTONIX) 40 mg Oral Tablet, Delayed Release (E.C.) Take 1 Tab by mouth daily. 06/24/16 Campbell Huston MD ranolazine (RANEXA) 500 mg Oral Tablet Sustained Release 12 hr Take 1 Tab by mouth every 12 hours. 06/24/16 Campbell Huston MD risperiDONE (RISPERDAL) 1 [...] Negative for palpitations and leg swelling. Gastrointestinal: Positive for nausea. Negative for abdominal pain, diarrhea and vomiting. Genitourinary: Negative for dysuria and frequency. Musculoskeletal: Negative. Skin: Negative for rash. Neurological: Negative. Psychiatric/Behavioral: Negative. All other systems reviewed and are negative. Blood pressure 133/62, pulse 68, temperature 97.5 ??F (36.4 ??C), temperature source Oral, resp. rate 13, height 5' 8.5 (1.74 m), weight 225 lb (102.1 kg), SpO2 98 %. Physical Exam Constitutional: [...] or performed during the hospital encounter of 07/30/16 XR CHEST PA AND LATERAL Narrative XR CHEST PA AND LATERAL 07/30/2016 11:18 AM HISTORY: -CHEST PAIN COMPARE: 06/22/2016. Heart size borderline. Evaluation of the lung bases is somewhat limited due to prominent overlying soft tissues, which generate increased density overlying the lower lungs. A row of surgical sutures is present in the peripheral right upper lobe. There are coarse atelectatic markings at the right lung base, similar to prior, due in part to overlying breast shadow. Right mid and upper lungs are clear. No pleural fluid is seen. Impression Borderline cardiac size. Mild relative increased density overlying right lower lung, but appearance is similar to prior 06/22/2016 exam and may be due entirely to prominent overlying breast tissue. Mild right basal atelectasis not excluded. CBC WITH AUTO DIFF Result Value Ref Range WBC 7.6 4.0 - 11.0 x10(3)/mcL RBC 4.18 3.80 - 5.10 x10(6)/mcL Hgb 12.1 12.0 - 15.6 gm/dL Hct 36.7 35.7 - 45.9 % MCV 87.8 82.5 - 99.8 fL MCH 28.9 27.0 - 34.3 pg MCHC 32.9 32.1 - 35.3 gm/dL RDW 13.8 11.5 - 15.0 % Platelet 174 144 - 423 x10(3)/mcL MPV 9.2 6.8 - 10.8 fL BASIC METABOLIC PANEL Result Value Ref Range Sodium 139 136 - 145 mmol/L Potassium 4.2 3.5 - 5.0 mmol/L Chloride 101 98 - 107 mmol/L Total CO2 26 22 - 29 mmol/L Anion Gap 12 7 - 16 mmol/L Calcium 9.0 8.8 - 10.2 mg/dL Glucose Lvl 224 (H) 82 - 100 mg/dL BUN 20 8 - 23 mg/dL Creatinine 1.43 (H) 0.51 - 1.30 mg/dL GFR Afr Am 45 GFR Non Afr Am 37 TROPONIN-T Result Value Ref Range Troponin-T <0.01 <=0.00 ng/mL DIFFERENTIAL Result Value Ref Range Neut Percent 70.2 % Lymph Percent 20.0 % Ware Percent 5.8 % Eos Percent 3.4 % Baso Percent 0.6 % Neut# 5.3 1.8 - 7.7 x10(3)/mcL Lymph# 1.5 0.6 - 4.8 x10(3)/mcL Ware# 0.4 0.0 - 1.3 x10(3)/mcL Eos# 0.3 0.0 - 0.5 x10(3)/mcL Baso# 0.0 0.0 - 0.2 x10(3)/mcL EK EKG 12 LEAD Narrative NOTICE: Preliminary tracing available for review; Final Interpretation by physician to follow. Impression Stationary ECG Study [facility] Interpretive Statements SINUS BRADYCARDIA LOW QRS VOLTAGE IN PRECORDIAL LEADS ANTERIOR MYOCARDIAL INFARCTION, PROBABLY OLD INFERIOR MYOCARDIAL INFARCTION, PROBABLY OLD ED Course: Appropriate laboratory and radiology studies reviewed Above in history of present illness and physical examination. On arrival to the emergency department patient is otherwise well-appearing and in no acute distress. She is afebrile with stable vital signs. She complains of a pressure- like sensation to her chest so presented to the emergency department. Patient had a recent echocardiogram in June with a normal ejection fraction and moderate tricuspid regurgitation and had a cardiac catheter December 2015 in which she had 60-70% stenosis at the LADwith good flows and a stent was placed. Patient came to the emergency department in the middle of June for chest pain like she's presenting today but was discharged home. Patient is not on anticoagulation due to frequency of falls. She states she has compliant with her other medications. Troponin was negative, laboratory studies were unremarkable/unchanged. I did touch base with cardiology, Dr. Nash who agreed with inpatient admission and further monitoring. June 2016 ECHO: IMPRESSION CONCLUSIONS Normal LV size and function. LVEF 65-70%. Mild concentric hypertrophy. Grade 1 diastolic dysfunction The right ventricle is normal in size and function. Mild left atrial dilatation. Trace mitral regurgitation. Mild to moderate tricuspid regurgitation. RVSP estimated to be:.37 mmHg + JVP. Cardiac catheter December 2015: Dominance: Right Left Main The vessel is moderate in size. Left Anterior Descending Proximal LAD 60-70% stenosis. Left Circumflex There is mild diffuse disease throughout the vessel. Right Coronary Artery High anterior takeoff. Ostial RCA 20%, no dampening noted ED Clinical Impression: Chest pain Critical Care time Condition at Discharge/Transfer from Department: Stable This chart was completed using voice recognition technology and may contain unintended errors Claire Pineda APRN 07/30/16 1233 Cosigned by Ernie Michel MD at 07/30/2016 2:51 PM EDT Associated attestation - Ernie Michel MD - 07/30/2016 2:51 PM EDT I have reviewed the chief complaint and history of present illness and review of systems as well asthe past medical/social/family history sections for this patient. I have participated in the care of this patient. I have reviewed the pertinent clinical information including physical exam, labs, radiographic studies and the plan. This patient was seen in coordination with PA/PATIENT SERVICES REP. This chart was completed using voice recognition technology and may contain unintended errors documented in this encounter Miscellaneous Notes * Utilization Review Notes - Pat Chapa RN - 08/02/2016 3:16 PM EDT Discharge order in [facility]. PT eval: recomm rehab vs home PT Cardiology says home after iv lasix given. CC following for discharge plan * Utilization Review Notes - Pat Chapa RN - 08/01/2016 3:54 PM EDT Cardiac w/u negative Await PT eval for d/c plan * Plan of Care - Maureen Canada RN - 07/31/2016 3:59 PM EDT Problem: Disposition/Transition of Care Goal: Patient will have a plan for disposition or transition to next level of care Outcome: Completed Date Met: 07/31/16 CC following for any d/c needs * Utilization Review Notes - Annika Solis, ROLF - 07/31/2016 10:37 AM EDT UM Note: Observation. ER admit to tele for Chest Pain. Trop negative x3. Plan Echo and stress test.Discharge plan pending medical stability. documented in this encounter Plan of Treatment Not on file documented as of this encounter Procedures Procedure Name Priority Date/Time Associated Diagnosis Comments SCANNED RHYTHM STRIPS 08/04/2016 5:24 PM EDT GLUCOSE METER POC Routine 08/02/2016 12:06 PM EDT SCANNED RHYTHM STRIPS 08/02/2016 9:22 AM EDT GLUCOSE METER POC Routine 08/02/2016 7:46 AM EDT IP CONSULT TO [facility] CARE Routine 08/02/2016 7:32 AM EDT GLUCOSE METER POC Routine 08/01/2016 9:37 PM EDT SCANNED RHYTHM STRIPS 08/01/2016 7:52 PM EDT GLUCOSE METER POC Routine 08/01/2016 5:41 PM EDT GLUCOSE METER POC Routine 08/01/2016 1:12 PM EDT GLUCOSE METER POC Routine 08/01/2016 7:49 AM EDT GLUCOSE METER POC Routine 07/31/2016 9:33 PM EDT SCANNED RHYTHM STRIPS 07/31/2016 8:32 PM EDT GLUCOSE METER POC Routine 07/31/2016 6:20 PM EDT SCANNED RADIOLOGY REPORT 07/31/2016 3:18 PM EDT GLUCOSE METER POC Routine 07/31/2016 12:16 PM EDT NM MYOCARDIAL PERFUSION SPECT STRESS AND REST STAT 07/31/2016 11:38 AM EDT SCANNED EKG 07/31/2016 11:[address] STRESS TEST LEXISCAN STAT 07/31/2016 10:52 AM EDT SCANNED RHYTHM STRIPS 07/31/2016 10:12 AM EDT EC ECHOCARDIOGRAM COMPLETE W DOPPLER AND COLOR FLOW MAPPING STAT 07/31/2016 9:06 AM EDT GLUCOSE METER POC Routine 07/31/2016 8:00 AM EDT GLUCOSE METER POC Routine 07/30/2016 9:47 PM EDT EK EKG 12 LEAD STAT 07/30/2016 9:23 PM EDT SCANNED RHYTHM STRIPS 07/30/2016 8:53 PM EDT TROPONIN-T Timed 07/30/2016 7:01 PM EDT TROPONIN-T STAT 07/30/2016 1:44 PM EDT IP CONSULT TO CARDIOLOGY Routine 07/30/2016 12:31 PM EDT Procedure Note - Bello Devries MD - 07/30/2016 5:30 PM EDTThis note is in progress. [facility] [place] [facility] Cardiology Consultation ADMISSION: 07/30/2016 PATIENT: Faby Palm [birth year] PCP: Alessandra Trevino August, I would like to thank Tr Story MD for requesting me to see Evon Palm in consultation chest pain Moderate intensity Mid sternal Associated sob No radiation. No dysphagia odynophagia Onset rest Ongoing lasted 9 hours. Past Medical History Past Medical History: Diagnosis Date ? ? [...] attempt (HCC) ? ? Yeast infection recurrent Medication No current facility-administered medications on file prior to encounter. Current Outpatient Prescriptions on File Prior to Encounter Medication Sig Dispense Refill ? ? acetaminophen 325 mg Oral Tab Take 650 mg by mouth every 4 hours asneeded for Pain. ? ? amitriptyline (ELAVIL) 75 mg Oral Tablet Take 75 mg by mouth nightly. ? ? ARIPiprazole (ABILIFY) 10 mg Oral Tablet Take 30 mg by mouth daily. ? ? aspirin 81 mg Oral Tablet, Delayed Release (E.C.) Take 81 mg by mouthdaily. ? ? atorvastatin (LIPITOR) 20 mg Oral Tablet Take 1 Tab by mouth nightly. 30Tab 1 ? ? ferrous sulfate 325 mg (65 mg iron) Oral Tablet Take 1 Tab by mouth 2times daily (with meals). 60 Tab 5 ? ? gabapentin (NEURONTIN) 100 mg Oral Capsule Take 100 mg by mouth nightly. ? ? glipiZIDE (GLUCOTROL) 10 mg Oral Tablet Take 10 mg by mouth 2 timesdaily (with meals). ? ? hydrOXYzine (ATARAX) 25 mg Oral Tablet Take 25 mg by mouth 2 timesdaily. Indications: ANXIETY ? ? isosorbide mononitrate (IMDUR) 60 mg Oral Tablet Sustained Release 24 hrTake 1 Tab by mouth daily. 30 Tab 1 ? ? lisinopril (PRINIVIL;ZESTRIL) 10 mg Oral Tablet Take 5 mg by mouthdaily. ? ? NIFEdipine (PROCARDIA XL) 90 mg Oral Tablet Extended Rel 24 hr Take 1Tab by mouth daily. 30 Tab 1 ? ? pantoprazole (PROTONIX) 40 mg Oral Tablet, Delayed Release (E.C.) Take 1Tab by mouth daily. 30 Tab 1 ? ? ranolazine (RANEXA) 500 mg Oral Tablet Sustained Release 12 hr Take 1Tab by mouth every 12 hours. 60 Tab 1 ? ? risperiDONE (RISPERDAL) 1 mg Oral Tablet Take 2 mg by mouth nightly. ? ? roPINIRole (REQUIP) 0.5 mg Oral Tablet Take 1.5 mg by mouth nightly. ? ? sitaGLIPtin (JANUVIA) 100 mg Oral Tablet Take 100 mg by mouth daily. ? ? venlafaxine (EFFEXOR-XR) 150 mg Oral Capsule, Sust. Release 24 hr Wups680 mg by mouth nightly. Scheduled Meds: Continuous Infusions: Past Surgical History Past Surgical History: Procedure Laterality Date ? [...] ENDOSCOPY; Service: Endoscopy Allergy Allergies Allergen Reactions ? ? Compazine [Prochlorperazine Edisylate] ? ? [place] ? ? Pentazocine Hcl ? ? Prochlorperazine Maleate ? ? [place] [Pentazocine Lactate] Family History Family History Problem Relation Age of Onset ? ? Cancer Mother larnyx cancer Social History Social History Substance Use Topics ? ? Smoking status: Never Smoker ? ? Smokeless tobacco: Never Used ? ? Alcohol use No Review of Systems Per Epic nursing notes ,remainder of ROS was reviewed and negative Objective: Visit Vitals ? ? BP 140/71 ? ? Pulse 61 ? ? Temp 97.5 ??F (36.4 ??C) (Oral) ? ? Resp 14 ? ? Ht 5' 8.5 (1.74 m) ? ? Wt 225 lb (102.1 kg) ? ? SpO2 99% ? ? BMI 33.71 kg/m2 General: alert, appears stated age and cooperative Oropharynx: normal Neck: nontender Lung: clear to auscultation bilaterally Heart: regular rate and rhythm, S1, S2 normal, no murmur, click, rub orgallop Abdomen: soft, non-tender. Bowel sounds normal. No masses, no organomegaly Extremities: extremities normal, atraumatic, no cyanosis or edema Pulses: 2+ and symmetric bilaterally,brachial, radial, inquinal,popliteal, posterior tibial and dorsalis pedis Skin: warm and dry, no hyperpigmentation, vitiligo, or suspicious lesionsand Warm and dry. no hyperpigmentation, vitiligo, or suspicious lesions Neuro: normal without focal findings, FOUZIA, reflexes normal and symmetricand mental status, speech normal, alert and oriented x iii Diagnostic tests Lab Results Component Value Date WBC 7.6 07/30/2016 HGB 12.1 07/30/2016 HCT 36.7 07/30/2016 PLT 174 07/30/2016 Lab Results Component Value Date CREATININE 1.43 (H) 07/30/2016 BUN 20 07/30/2016 NA 139 07/30/2016 K 4.2 07/30/2016 CL 101 07/30/2016 CO2 26 07/30/2016 Lab Results Component Value Date CHOLESTEROL 177 09/09/2015 TRIG 375 (H) 09/09/2015 HDL 35 (L) 09/09/2015 LDLCALC 67 09/09/2015 Lab Results Component Value Date ALT 10 06/22/2016 AST 12 06/22/2016 Lab Results Component Value Date TSH 3.090 12/27/2015 Lab Results Component Value Date INR 1.03 12/28/2015 No results found for: CKTOTAL, CKMB, CKMBINDEX, TROPONINI Xr Chest Pa And Lateral Result Date: 07/30/2016 XR CHEST PA AND LATERAL 07/30/2016 11:18 AM HISTORY: -CHEST PAINCOMPARE: 06/22/2016. Heart size borderline. Evaluation of the lung bases issomewhat limited due to prominent overlying soft tissues, which generateincreased density overlying the lower lungs. A row of surgical sutures ispresent in the peripheral right upper lobe. There are coarse atelectaticmarkings at the right lung base, similar to prior, due in part tooverlying breast shadow. Right mid and upper lungs are clear. No pleuralfluid is seen. Borderline cardiac size. Mild relative increased density overlying rightlower lung, but appearance is similar to prior 06/22/2016 exam and may bedue entirely to prominent overlying breast tissue. Mild right basalatelectasis not excluded. Ek Ekg 12 Lead Result Date: 07/30/2016 NOTICE: Preliminary tracing available for review; Final Interpretation byphysician to follow. Stationary ECG StudySt. Sandra DrewInterpretive Statements SINUSBRADYCARDIA LOW QRS VOLTAGE IN PRECORDIAL LEADS ANTERIOR MYOCARDIALINFARCTION, PROBABLY OLD INFERIOR MYOCARDIAL INFARCTION, PROBABLY OLD Nochange since previous ECG Electronically Signed On 07-30-2016 13:31:22 EDTby Rome Harris MD EKG: Interpreted by mE normal EKG, normal sinus rhythm, poor anterior Rwave. Telemetry Interpreted by me normal sinus The most recent cardiovascular imaging studies availabe in [facility] EMR werereviewed at time of consultation Assessment: Code Status Prior Active Hospital Problems Diagnosis ? ? *Precordial pain ? ? Atrial flutter (HCC) ? ? S/P ablation of atrial flutter ? ? Acute on chronic diastolic (congestive) heart failure (HCC) ? ? Coronary artery disease involving [place] coronary artery of [place] heart ? ? Hemiparesis affecting left side as late effect of stroke (HCC) ? ? Essential hypertension Plan: For complete plan of care please also refer to orders Intermediate severity disease at trifurcation in lad Need to document anterior ischemia prior to revasck lexiscan myoview. Echo. TROPONIN-T STAT 07/30/2016 11:37 AM EDT DIFFERENTIAL STAT 07/30/2016 11:37 AM EDT CBC WITH DIFF STAT 07/30/2016 11:37 AM EDT BASIC METABOLIC PANEL STAT 07/30/2016 11:37 AM EDT XR CHEST PA AND LATERAL EMMY 07/30/2016 11:18 AM EDT EK EKG 12 LEAD STAT 07/30/2016 10:33 AM EDT documented in this encounter Results * SCANNED RHYTHM STRIPS (08/04/2016 5:24 PM EDT) Anatomical Region Laterality Modality Other 08/04/2016 5:24 PM EDT us Unknown Unknown IMG ECG ORDERABLES Final Result * (ABNORMAL) GLUCOSE METER POC (08/02/2016 12:06 PM EDT) Glucose Meter POC 221(H) 70 - 100 mg/dL [facility] POINT OF CARE LABORATORY Sample Type Capillary [facility] Patient Status Non-Critical Patient [facility] POINT OF CARE LABORATORY Blood specimen (specimen) 08/02/2016 12:06 PM EDT 08/02/2016 12:06 PM EDT us Tr Story MD POINT OF CARE TEST ORDERABLES F inal Result [facility] POINT [facility] CARE LABORATORY [address] [place] [address] [place] [address] * SCANNED RHYTHM STRIPS (08/02/2016 9:22 AM EDT) Anatomical Region Laterality Modality Other 08/02/2016 9:22 AM EDT us Unknown Unknown IMG ECG ORDERABLES Final Result * (ABNORMAL) GLUCOSE METER POC (08/02/2016 7:46 AM EDT) Glucose Meter POC 215(H) 70 - 100 mg/dL [facility] POINT OF CARE LABORATORY Sample Type Capillary [facility] POIN T OF CARE LABORATORY Patient Status Non-Critical Patient [facility] POINT OF CARE LABORATORY Blood specimen (specimen) 08/02/2016 7:46 AM EDT 08/02/2016 7:46 AM EDT us Tr Story MD POINT OF CARE TEST ORDERABLES F inal Result Performing Organization Address City/[facility]/ZIP Co de Phone Number [facility] POINT OF CARE LABORATORY [address] [place] [address] ADRIEL Bullard [address] * (ABNORMAL) GLUCOSE METER POC (08/01/2016 9:37 PM EDT) Glucose Meter POC 219(H) 70 - 100 mg/dL [facility] POINT OF CARE LABORATORY Sample Type Capillary [facility] Patient Status Non-Critical Patient [facility] POINT OF CARE LABORATORY Blood specimen (specimen) 08/01/2016 9:37 PM EDT 08/01/2016 9:37 PM EDT Tr Story MD POINT OF CARE TEST ORDERABLES F inal Result Performing Organization Address [facility] Co de Phone Number [facility] POINT [facility] [address] [place] [address] ADRIEL Bullard [address] * SCANNED RHYTHM STRIPS (08/01/2016 7:52 PM EDT) Anatomical Region Laterality Modality Other 08/01/2016 7:52 PM EDT us Unknown Unknown IMG ECG ORDERABLES Final Result * (ABNORMAL) GLUCOSE METER POC (08/01/2016 5:41 PM EDT) Glucose Meter POC 116(H) 70 - 100 mg/dL [facility] Sample Type Capillary [facility] Patient Status Non-Critical Patient [facility] POINT [facility]ARE LAB[facility] Blood specimen (specimen) 08/01/2016 5:41 PM EDT 08/01/2016 5:41 PM EDT Tr Story MD POINT OF CARE TEST ORDERABLES F inal Result Performing Organization Address [facility]/ZIP Co de Phone Number [facility] POINT OF CARE LABORATORY [address] [facility] ADRIEL Bullard [address] * (ABNORMAL) GLUCOSE METER POC (08/01/2016 1:12 PM EDT) Glucose Meter POC 228(H) 70 - 100 mg/dL [facility] POINT OF CARE LABORAT[facility] Sample Type Capillary [facility] POIN T OF CARE LABORATORY Patient Status Non-Critical Patient [facility] POINT [facility]ARE LAB[facility] Blood specimen (specimen) 08/01/2016 1:12 PM EDT 08/01/2016 1:12 PM EDT us Tr Story MD POINT OF CARE TEST ORDERABLES F inal Result Performing Organization Address [facility] Co de Phone Number [facility] POINT OF CARE LABORATORY 1 [facility] ADRIEL Bullard [address] * (ABNORMAL) GLUCOSE METER POC (08/01/2016 7:49 AM EDT) Glucose Meter POC 192(H) 70 - 100 mg/dL [facility] POINT OF CARE LABORATORY Sample Type Capillary [facility] Patient Status Non-Critical Patient [facility] POINT [facility] CARE LAB[facility] Blood specimen (specimen) 08/01/2016 7:49 AM EDT 08/01/2016 7:49 AM EDT us Tr Story MD POINT OF CARE TEST ORDERABLES F inal Result Performing Organization Address [facility] de Phone Number [facility] POINT OF CARE LABORATORY [address] [facility] [place]EL Bullard [address] * (ABNORMAL) GLUCOSE METER POC (07/31/2016 9:33 PM EDT) Glucose Meter POC 243(H) 70 - 100 mg/dL [facility] POINT OF CARE LABORATORY Sample Type Capillary [facility] Patient Status Non-Critical Patient [facility] POINT [facility] CARE LAB[facility] Blood specimen (specimen) 07/31/2016 9:33 PM EDT 07/31/2016 9:33 PM EDT us Tr Story MD POINT OF CARE TEST ORDERABLES F inal Result Performing Organization Address City/[facility] Co de Phone Number [facility] POINT OF CARE LABORATORY 1 [facility] ADRIEL Bullard [address] * SCANNED RHYTHM STRIPS (07/31/2016 8:32 PM EDT) Anatomical Region Laterality Modality Other 07/31/2016 8:32 PM EDT us Unknown Unknown IMG ECG ORDERABLES Final Result * (ABNORMAL) GLUCOSE METER POC (07/31/2016 6:20 PM EDT) Glucose Meter POC 233(H) 70 - 100 mg/dL [facility] POINT OF CARE LABORATORY Sample Type Capillary [facility] Patient Status Non-Critical Patient [facility] POINT [facility] CARE LAB[facility] Blood specimen (specimen) 07/31/2016 6:20 PM EDT 07/31/2016 6:20 PM EDT Tr Story MD POINT OF CARE TEST ORDERABLES F inal Result Performing Organization Address [facility] de Phone Number [facility] PO[facility] [address] [place] [address] ADRIEL Bullard [address] * SCANNED RADIOLOGY REPORT (07/31/2016 3:18 PM EDT) Anatomical Region Laterality Modality Other 07/31/2016 3:18 PM EDT us Unknown Unknown IMG DIAGNOSTIC IMAGING ORDERABLE S Final Result * (ABNORMAL) GLUCOSE METER POC (07/31/2016 12:16 PM EDT) Glucose Meter POC 126(H) 70 - 100 mg/dL [facility] POINT OF CARE LABORATORY Sample Type Capillary [facility] Patient Status Non-Critical Patient [facility] POINT [facility] CARE [facility] Blood specimen (specimen) 07/31/2016 12:16 PM EDT 07/31/2016 12:16 PM EDT Tr Story MD POINT OF CARE TEST ORDERABLES F inal Result Performing Organization Address [facility] Co de Phone Number [facility] [address] [place] [address] ADRIEL Bullard [address] * NM MYOCARDIAL PERFUSION SPECT STRESS AND REST (07/31/2016 11:38 AM EDT) Anatomical Region Laterality Modality Nuclear Medicine 07/31/2016 9:00 AM EDT Impressions 07/31/2016 3:43 PM EDT IMPRESSIONS Normal left ventricular perfusion study. ?? No evidence of myocardial ischemia or myocardial infarction. ?? Normal left ventricular size and function. ?? Narrative Procedure Note Mohamud Alonso MD - 07/31/2016 IMPRESSION IMPRESSIONS Normal left ventricular perfusion study. No evidence of myocardial ischemia or myocardial infarction. Normal left ventricular size and function. us Faby Andrews PROPERTY OFFICER IMG NM CARDIAC ORDERABLES F inal Result * SCANNED EKG (07/31/2016 11:32 AM EDT) Anatomical Region Laterality Modality Other 07/31/2016 11:3 2 AM EDT us Unknown Unknown IMG ECG ORDERABLES Final Result * ST STRESS TEST LEXISCAN (07/31/2016 10:52 AM EDT) Anatomical Region Laterality Modality Cardiac Stress T esting 07/31/2016 10:3 4 AM EDT Impressions 07/31/2016 1:06 PM EDT ? Exercise ECG Report ?[facility] [place] ? Interpretive Statements ? Stress Test Lexiscan Reason for Exam: chest discomfort Ordering Diagnosis: same Resting HR: 64 ?? Peak HR: 85 Resting B/P 140/70 ??PeaK B/P 149/55 1. Lexiscan 0.4 mg was given IV push at 30 seconds into protocol. 2. Lexiscan injection was done ___with _x__without low level exercise. 3. Termination of test due to protocol completion _x__ yes ___ no. 4. Symptoms: pt c/o slight sob s/p lexiscan injection, resolves in recovery. 5. Aminophylline given _x_ no ___ yes 6. Myoview scan report pending. 7. Resting EK. Arrhythmias: 9. Conclusion: Resting ECG is normal sinus rhythm. Normal response to Lexiscan. Electronically Signed On 07-31-2016 13:06:19 EDT by Bello Devries MD Narrative Procedure Note Bello Devries MD - 07/31/2016 IMPRESSION Exercise ECG Report [place] Interpretive Statements Stress Test Lexiscan Reason for Exam: chest discomfort Ordering Diagnosis: same Resting HR: 64 Peak HR: 85 Resting B/P 140/70 PeaK B/P 149/55 1. Lexiscan 0.4 mg was given IV push at 30 seconds into protocol. 2. Lexiscan injection was done ___with _x__without low level exercise. 3. Termination of test due to protocol completion _x__ yes ___ no. 4. Symptoms: pt c/o slight sob s/p lexiscan injection, resolves inrecovery. 5. Aminophylline given _x_ no ___ yes 6. Myoview scan report pending. 7. Resting EK. Arrhythmias: 9. Conclusion: Resting ECG is normal sinus rhythm. Normal response to Lexiscan. Electronically Signed On 07-31-2016 13:06:19 EDT by Bello Devries MD Faby Andrews APRN IMG STRESS ORDERABLES Final Result * SCANNED RHYTHM STRIPS (07/31/2016 10:12 AM EDT) Anatomical Region Laterality Modality Other 07/31/2016 10:1 2 AM EDT us Unknown Unknown IMG ECG ORDERABLES Final Result * EC ECHOCARDIOGRAM COMPLETE W DOPPLER AND COLOR FLOW MAPPING (07/31/2016 9:06 AM EDT) [facility] Ejection Fraction 55-60 % [place] Anatomical Region Laterality Modality Electrocardiogra phy 07/31/2016 8:41 AM EDT Impressions 07/31/2016 12:06 PM EDT ??CONCLUSIONS ??Normal global left ventricular size, wall thickness, systolic function with no obvious regional wall motion abnormalities. Narrative Procedure Note Bello Devries MD - 07/31/2016 IMPRESSION CONCLUSIONS Normal global left ventricular size, wall thickness, systolic functionwith no obvious regional wall motion abnormalities. us Faby Andrews APRN IMG ECHO ORDERABLES Final R esult * (ABNORMAL) GLUCOSE METER POC (07/31/2016 8:00 AM EDT) [facility] Glucose Meter POC 171(H) 70 - 100 mg/dL [facility] POINT OF CARE LABORATORY Sample Type Capillary [facility] POIN T OF CARE LABORATORY Patient Status Non-Critical Patient [facility] POINT OF CARE LABORATORY Blood specimen (specimen) 07/31/2016 8:00 AM EDT 07/31/2016 8:00 AM EDT us Tr Story MD POINT OF CARE TEST ORDERABLES F inal Result [facility] POINT OF CARE LABORATORY [address] [facility] [place] [address] * (ABNORMAL) GLUCOSE METER POC (07/30/2016 9:47 PM EDT) Glucose Meter POC 241(H) 70 - 100 mg/dL [facility] POINT OF CARE LABORATORY Sample Type Capillary [facility] POIN T OF CARE LABORATORY Patient Status Non-Critical Patient [facility] POINT OF CARE LABORATORY Blood specimen (specimen) 07/30/2016 9:47 PM EDT 07/30/2016 9:47 PM EDT us Tr Story MD POINT OF CARE TEST ORDERABLES F inal Result [facility] POINT OF CARE LABORATORY [address] [facility] [place] [address] * EK EKG 12 LEAD (07/30/2016 9:23 PM EDT) Anatomical Region Laterality Modality Electrocardiogra phy 07/30/2016 9:33 PM EDT Impressions 07/31/2016 8:53 AM EDT ? Stationary ECG Study ?[facility] [place] ? Interpretive Statements ? SINUS RHYTHM WITH OCCASIONAL VENTRICULAR PREMATURE COMPLEXES LOW QRS VOLTAGE IN PRECORDIAL LEADS SEPTAL MYOCARDIAL INFARCTION, PROBABLY OLD INFERIOR MYOCARDIAL INFARCTION, PROBABLY OLD No change since previous ECG Electronically Signed On 07-31-2016 8:53:01 EDT by Rome Harris MD Narrative Procedure Note Kam Harris MD - 07/31/2016 IMPRESSION [facility] Interpretive Statements SINUS RHYTHM WITH OCCASIONAL VENTRICULAR PREMATURE COMPLEXES LOW QRS VOLTAGE IN PRECORDIAL LEADS SEPTAL MYOCARDIAL INFARCTION, PROBABLY OLD INFERIOR MYOCARDIAL INFARCTION, PROBABLY OLD No change since previous ECG Electronically Signed On 07-31-2016 8:53:01 EDT by Rome Harris MD us Tr tSory MD IMG ECG ORDERABLES Final Result * SCANNED RHYTHM STRIPS (07/30/2016 8:53 PM EDT) Anatomical Region Laterality Modality Other 07/30/2016 8:53 PM EDT us Unknown Unknown IMG ECG ORDERABLES Final Result * TROPONIN-T (07/30/2016 7:01 PM EDT) Troponin-T <0.01 <=0.00 ng/mL [facility] Comment: Values > or = 0.01 ng/mL have been shown to have prognostic value. Blood specimen (specimen) 07/30/2016 7:01 PM EDT 07/30/2016 7:06 PM EDT Claire Pineda APRN CHEMISTRY ORDERABLES Final R esult Performing Organization Address City/[facility]/ZIP Co de Phone Number [facility] [address] [place] [address] * TROPONIN-T (07/30/2016 1:44 PM EDT) Troponin-T <0.01 <=0.00 ng/mL [facility] Comment: Values > or = 0.01 ng/mL have been shown to have prognostic value. Blood specimen (specimen) 07/30/2016 1:44 PM EDT 07/30/2016 1:47 PM EDT Claire Pineda APRN CHEMISTRY ORDERABLES Final R esult Performing Organization Address City/[facility]/[place] [address] * DIFFERENTIAL (07/30/2016 11:37 AM EDT) [facility] Neut Percent 70.2 % [facility] Lymph Percent 20.0 % [facility] Ware Percent 5.8 % [facility] Eos Percent 3.4 % [facility] Baso Percent 0.6 % [facility] Neut# 5.3 1.8 - 7.7 x10(3)/mcL [facility] Lymph# 1.5 0.6 - 4.8 x10(3)/[facility] LABORATORY Ware# 0.4 0.0 - 1.3 x10(3)/[facility] LAB[facility] Eos# 0.3 0.0 - 0.5 x10(3)/[facility] LAB[facility]ORY Baso# 0.0 0.0 - 0.2 x10(3)/[facility] LAB[facility] Blood specimen (specimen) 07/30/2016 11:37 AM EDT 07/30/2016 11:40 AM EDT Claire Pineda APRN HEMATOLOGY ORDERABLES Final Result Performing Organization Address [facility] [place] [address] * TROPONIN-T (07/30/2016 11:37 AM EDT) [facility] Troponin-T <0.01 <=0.00 ng/mL [facility] Comment: Values > or = 0.01 ng/mL have been shown to have prognostic value. Blood specimen (specimen) 07/30/2016 11:37 AM EDT 07/30/2016 11:40 AM EDT Claire Pineda APRN CHEMISTRY ORDERABLES Final R esult Performing Organization Address [facility] [place] [address] * (ABNORMAL) BASIC METABOLIC PANEL (07/30/2016 11:37 AM EDT) [facility] Sodium 139 136 - 145 mmol/L [facility] Potassium 4.2 3.5 - 5.0 mmol/L [facility] Chloride 101 98 - 107 mmol/L [facility] Total CO2 26 22 - 29 mmol/L [facility] Anion Gap 12 7 - 16 mmol/L [facility] Calcium 9.0 8.8 - 10.2 mg/dL [facility] Glucose Lvl 224(H) 82 - 100 mg/dL [facility] BUN 20 8 - 23 mg/dL [facility] Creatinine 1.43(H) 0.51 - 1.30 mg/dL [facility] GFR Afr Am 45 [facility] GFR Non Afr Am 37 [facility] Blood specimen (specimen) UPPER LIMB STRUCTURE / Unknown 07/30/2016 11:37 AM EDT 07/30/2016 11:40 AM EDT Claire Pineda PROPERTY OFFICER CHEMISTRY ORDERABLES Edited Result - Final [facility] [address] [place] [address] * CBC WITH AUTO DIFF (07/30/2016 11:37 AM EDT) WBC 7.6 4.0 - 11.0 x10(3)/mcL [facility] RBC 4.18 3.80 - 5.10 x10(6)/mcL [facility] Hgb 12.1 12.0 - 15.6 gm/dL [facility] Hct 36.7 35.7 - 45.9 % [facility] MCV 87.8 82.5 - 99.8 fL [facility] MCH 28.9 27.0 - 34.3 pg [facility] MCHC 32.9 32.1 - 35.3 gm/dL [facility] RDW 13.8 11.5 - 15.0 % [facility] Platelet 174 144 - 423 x10(3)/mcL [facility] MPV 9.2 6.8 - 10.8 fL [facility] Blood specimen (specimen) UPPER LIMB STRUCTURE / Unknown 07/30/2016 11:37 AM EDT 07/30/2016 11:40 AM EDT Claire Pineda APRN HEMATOLOGY ORDERABLES Final Result [facility] [address] [id number] * XR CHEST PA AND LATERAL (07/30/2016 11:18 AM EDT) Anatomical Region Laterality Modality Chest Radiographic Whit ging 07/30/2016 11:1 8 AM EDT Impressions 07/30/2016 11:44 AM EDT Borderline cardiac size. Mild relative increased density overlying right lower lung, but appearance is similar to prior 06/22/2016 exam and may be due entirely to prominent overlying breast tissue. Mild right basal atelectasis not excluded. Narrative 07/30/2016 11:44 AM EDT XR CHEST PA AND LATERAL ?? 07/30/2016 11:18 AM HISTORY: ??-CHEST PAIN ?? COMPARE: 06/22/2016. Heart size borderline. Evaluation of the lung bases is somewhat limited due to prominent overlying soft tissues, which generate increased density overlying the lower lungs. A row of surgical sutures is present in the peripheral right upper lobe. There are coarse atelectatic markings at the right lung base, similar to prior, due in part to overlying breast shadow. Right mid and upper lungs are clear. No pleural fluid is seen. Procedure Note Mayo Gil MD - 07/30/2016 XR CHEST PA AND LATERAL 07/30/2016 11:18 AM HISTORY: -CHEST PAIN COMPARE: 06/22/2016. Heart size borderline. Evaluation of the lung bases is somewhat limiteddue to prominent overlying soft tissues, which generate increased densityoverlying the lower lungs. A row of surgical sutures is present in the peripheral rightupper lobe. There are coarse atelectatic markings at the right lung base,similar to prior, due in part to overlying breast shadow. Right mid and upper lungsare clear. No pleural fluid is seen. IMPRESSION: Borderline cardiac size. Mild relative increased density overlying right lower lung, but appearance is similar to prior 06/22/2016 exam andmay be due entirely to prominent overlying breast tissue. Mild right basalatelectasis not excluded. us Claire Pineda APRN IMG DIAGNOSTIC IMAGING ORDER DEBBIE Final Result * EK EKG 12 LEAD (07/30/2016 10:33 AM EDT) Anatomical Region Laterality Modality Electrocardiogra phy 07/30/2016 10:3 7 AM EDT Impressions 07/30/2016 1:31 PM EDT ? Stationary ECG Study ?[place] ? Interpretive Statements ? SINUS BRADYCARDIA LOW QRS VOLTAGE IN PRECORDIAL LEADS ANTERIOR MYOCARDIAL INFARCTION, PROBABLY OLD INFERIOR MYOCARDIAL INFARCTION, PROBABLY OLD No change since previous ECG Electronically Signed On 07-30-2016 13:31:22 EDT by Rome Harris MD Narrative Procedure Note Kam Harris MD - 07/30/2016 IMPRESSION Stationary ECG Study [place] Interpretive Statements SINUS BRADYCARDIA LOW QRS VOLTAGE IN PRECORDIAL LEADS ANTERIOR MYOCARDIAL INFARCTION, PROBABLY OLD INFERIOR MYOCARDIAL INFARCTION, PROBABLY OLD No change since previous ECG Electronically Signed On 07-30-2016 13:31:22 EDT by Rome Harris MD us Ernie Michel MD IMG ECG ORDERABLES Final Resu lt documented in this encounter Visit Diagnoses Diagnosis Precordial pain- Primary Chest pain, unspecified type Hemiparesis affecting left side as late effect of stroke (HCC) Hemiplegia affecting unspecified side, late effect of cerebrovascular disease Acute on chronic diastolic (congestive) heart failure (HCC) Atrial flutter (HCC) Atrial flutter Essential hypertension Unspecified essential hypertension S/P ablation of atrial flutter Other postprocedural status 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) documented in this encounter Administered Medications Inactive Administered Medications - up to 1 most recent administrations Medication Order MAR Action Action Date Dose Rate Site amitriptyline (ELAVIL) tablet 75 mg 75 mg, Oral, NIGHTLY, First dose on Wed07/30/16 at 2100, Until Discontinued Given 08/01/2016 9:30 PM EDT 75 mg ARIPiprazole (ABILIFY) tablet 30 mg 30 mg, Oral, DAILY, First dose on Wed07/31/16 at 0900, Until Discontinued Given 08/02/2016 8:02 AM EDT 30 mg aspirin EC tablet 81 mg 81 mg, Oral, DAILY, First dose on Wed07/31/16 at 0900, Until Discontinued Given 08/02/2016 8:02 AM EDT 81 mg atorvastatin (LIPITOR) tablet 20 mg 20 mg, Oral, NIGHTLY, First dose on Wed07/30/16 at 2100, Until Discontinued Given 08/01/2016 9:30 PM EDT 20 mg dextrose 50 % solution 25 mL 25 mL, Intravenous, PRN, Starting on Francine 07/30/16 at 1937, Until Wed08/02/16 at 2111, Low blood sugar, If FSBS less than 70 mg/dl and patient cannot take orally, Check FSBS every 30 minutes and repeat 25 mL of D50 IV push and notify physician if FSBS less than 70 mg/dL VESICANT diphenhydrAMINE (BENADRYL) tablet 25 mg 25 mg, Oral, EVERY 4 HOURS PRN, Starting on Wed07/30/16 at 2114, Until Wed08/02/16 at 2111, Sleep Given 08/02/2016 12:18 AM EDT 25 mg ferrous sulfate tablet 325 mg 325 mg, Oral, 2 TIMES DAILY WITH MEALS, First dose on Francine 07/30/16 at 1945, Until Discontinued Given 08/02/2016 8:02 AM EDT 325 mg fUROsemide (LASix) injection 20 mg 20 mg, Intravenous, ONCE, 1 dose, On [place] 08/02/16 at 1230 Given 08/02/2016 1:51 PM EDT 20 mg fUROsemide (LASix) tablet 20 mg 20 mg, Oral, DAILY, First dose on [place] 08/02/16 at 1415, Until Discontinued gabapentin (NEURONTIN) capsule 100 mg 100 mg, Oral, NIGHTLY, First dose on [facility] 07/30/16 at 2100, Until Discontinued Given 08/01/2016 9:30 PM EDT 100 mg glipiZIDE (GLUCOTROL) tablet 10 mg 10 mg, Oral, 2 TIMES DAILY WITH MEALS, First dose on [facility] 07/30/16 at 1945, Until Discontinued Given 08/02/2016 8:01 AM EDT 10 mg glucagon (human recombinant) (GLUCAGEN) injection 1 mg 1 mg, Intramuscular, PRN, Starting on [facility] 07/30/16 at 1937, Until [place] 08/02/16 at 2112, Low blood sugar, If FSBS less than 70 mg/dl, patient cannot take orally and without IV access, If patient is without IV access, give Glucagon 1 mg Intramuscularly, insert IV and call physician. guaiFENesin (ROBITUSSIN) 100 mg/5 mL liquid 200 mg 200 mg, Oral, EVERY 4 HOURS PRN, Starting on [place] 08/02/16 at 1025, Until [place] 08/02/16 at 2112, Congestion Given 08/02/2016 1:50 PM EDT 200 mg hydrOXYzine (VISTARIL) capsule 25 mg 25 mg, Oral, 2 TIMES DAILY, First dose on [facility] 07/30/16 at 2100, Until Discontinued, Therapeutic Interchange for hydrOXYzine hcl 25mg tab Given 08/02/2016 8:01 AM EDT 25 mg insulin aspart (NovoLOG) injection 1-10 Units 1-10 Units, Subcutaneous, 4 TIMES DAILY WITH MEALS, First dose on [facility] 07/30/16 at 2100, Until Discontinued, Medium dose algorithm: FSBS? Additional [...] hours. Waste Sort Code = BKC Given 08/02/2016 12:09 PM EDT 4 Units Left Arm insulin glargine (LANTUS) injection 15 Units 15 Units, Subcutaneous, EVERY EVENING (INSULIN), First dose on Wed08/01/16 at 1900, Until Discontinued, Waste Sort Code = BKC Given 08/01/2016 5:53 PM EDT 15 Units Left Arm isosorbide mononitrate (IMDUR) CR tablet 60 mg 60 mg, Oral, DAILY, First dose on Wed07/31/16 at 0900, Until Discontinued Given 08/02/2016 8:01 AM EDT 60 mg linagliptin (TRADJENTA) tablet 5 mg 5 mg, Oral, DAILY, First dose on Wed07/31/16 at 0900, Until Discontinued, Therapeutic interchange as the dipeptidly peptidase-4 (DPP-4) inhibitor of choice. Given 08/02/2016 8:01 AM EDT 5 mg lisinopril (PRINIVIL;ZESTril) tablet 5 mg 5 mg, Oral, DAILY, First dose on Wed07/31/16 at 0900, Until Discontinued, +++ACEI Medication+++ Given 08/02/2016 8:02 AM EDT 5 mg miconazole (MICATIN) 2 % powder Topical, EVERY 12 HOURS SCHEDULED (2 times per day), 84 doses, First dose on Wed07/30/16 at 2100, Last dose on Wed09/10/16 at 0900, Application site: abd folds/ananya area Given 08/02/2016 8:02 AM EDT miconazole (MICATIN) 2 % powder Topical, PRN, Starting on Wed07/30/16 at 1958, Until Wed08/02/16 at 2111, Wound Care, Application site: abd folds/ananya area NIFEdipine (PROCARDIA XL) CR tablet 90 mg 90 mg, Oral, DAILY, First dose on Wed07/31/16 at 0900, Until Discontinued Given 08/02/2016 8:01 AM EDT 90 mg ondansetron (ZOFRAN) 4 mg/2 mL injection 4 mg 4 mg, Intravenous, EVERY 6 HOURS PRN, Starting on Wed07/30/16 at 1833, Until Wed08/02/16 at 2111, Nausea ondansetron (ZOFRAN) tablet 4 mg 4 mg, Oral, EVERY 6 HOURS PRN, Starting on Wed07/30/16 at 1833, Until Wed08/02/16 at 2111, Nausea oxyCODONE-acetaminophen (PERCOCET) 5-325 mg per tablet 1-2 Tab 1-2 Tablet, Oral, EVERY 4 HOURS PRN, Starting on Wed07/30/16 at 1833, Until Wed08/02/16 at 2111, Pain, Begin with lowest dose unless otherwise directed. Reassess pain in one hour. If pain unrelieved, remainder of dose may be given to patient. Maximum adult dose of acetaminophen is 4000 mg from all sources in 24 hours. Given 07/31/2016 1:00 PM EDT 1 Tablet pantoprazole (PROTONIX) tablet 40 mg 40 mg, Oral, DAILY, First dose on Wed07/31/16 at 0900, Until Discontinued, Do not crush or chew Given 08/02/2016 8:02 AM EDT 40 mg ranolazine (RANEXA) SR tablet 500 mg 500 mg, Oral, EVERY 12 HOURS SCHEDULED (2 times per day), First dose on Wed07/30/16 at 2100, Until Discontinued Given 08/02/2016 8:01 AM EDT 500 mg regadenoson (LEXISCAN) injection 0.4 mg 0.4 mg, Intravenous, ONCE, 1 dose, On Wed07/31/16 at 1100, Echo Meds Given 07/31/2016 10:43 AM EDT 0.4 mg risperiDONE (RisperDAL) tablet 2 mg 2 mg, Oral, NIGHTLY, First dose on Wed07/30/16 at 2100, Until Discontinued Given 08/01/2016 9:30 PM EDT 2 mg roPINIRole (REQUIP) tablet 1.5 mg 1.5 mg, Oral, NIGHTLY, First dose on Wed07/30/16 at 2100, Until Discontinued Given 08/01/2016 9:31 PM EDT 1.5 mg sertraline (ZOLOFT) tablet 150 mg 150 mg, Oral, DAILY, First dose on Wed07/31/16 at 0900, Until Discontinued Given 08/02/2016 8:02 AM EDT 150 mg sodium chloride 0.9% syringe Intravenous, ONCE PRN, 1 dose, Starting on Wed07/31/16 at 0843, Until Wed07/31/16 at 0830, Line Care, Flush every shift or after IV medication, Radiology Given 07/31/2016 8:30 AM EDT 10 mL Left Arm [id number] (MYOVIEW) injection 10-45 millicurie 10-45 millicurie, Intravenous, ONCE PRN, 1 dose, Starting on Wed07/31/16 at 0843, Until Wed07/31/16 at 1048, Radiology Procedure, Administration dose must be within 10% of the ordered dose for radiopharmaceutical medications., Radiology Given 07/31/2016 10:48 AM EDT 29 millicuries [id number] (MYOVIEW) injection 10-45 millicurie 10-45 millicurie, Intravenous, ONCE PRN, 1 dose, Starting on Wed07/31/16 at 0843, Until Wed07/31/16 at 0830, Radiology Procedure, Administration dose must be within 10% of the ordered dose for radiopharmaceutical medications., Radiology Given 07/31/2016 8:30 AM EDT 12.1 millicuries Left Arm venlafaxine (EFFEXOR-XR) XR capsule 300 mg 300 mg, Oral, NIGHTLY, First dose on Wed07/30/16 at 2100, Until Discontinued Given 08/01/2016 9:30 PM EDT 300 mg documented in this encounter Discontinued Medications Medication Sig Discontinue Reason Start Date End Da te insulin glargine (LANTUS) 100 unit/mL SubQ Solution Subcutaneous (Inject under the skin) 15 Units every evening. 08/02/2016 08/02/2016 documented as of this encounter Historical Medications * This list may reflect changes made after this encounter. sertraline (ZOLOFT) 100 mg Oral Tablet Take 200 mg by mouth daily. Reported on 08/12/2016 added in this encounter Active and Recently Administered Medications Times are shown in EDT. Scheduled Medication Order 07/31/2016 08/01/2016 08/02/2016 amitriptyline (ELAVIL) tablet 75 mg 75 mg, Oral, NIGHTLY, First dose on Wed07/30/16 at 2100, Until Discontinued 2036 (Given - Provider: Manju Chen RN) 2129 (Given - Provider: Janina Lockhart RN) ARIPiprazole (ABILIFY) tablet 30 mg 30 mg, Oral, DAILY, First dose on Wed07/31/16 at 0900, Until Discontinued 1502 (Given - Provider: Joselyn Krause RN) 1751 (Given - Provider: Marcy Martinez RN) 0802 (Given - Provider: Marcy Martinez RN) aspirin EC tablet 81 mg 81 mg, Oral, DAILY, First dose on Wed07/31/16 at 0900, Until Discontinued 1304 (Given - Provider: Joselyn Krause RN) 0906 (Given - Provider: Marcy Martinez RN) 0802 (Given - Provider: Marcy Martinez RN) atorvastatin (LIPITOR) tablet 20 mg 20 mg, Oral, NIGHTLY, First dose on [place] 07/30/16 at 2100, Until Discontinued 2035 (Given - Provider: Manju Chen RN) 2129 (Given - Provider: Janina Lockhart RN) ferrous sulfate tablet 325 mg 325 mg, Oral, 2 TIMES DAILY WITH MEALS, First dose on [place] 07/30/16 at 1945, Until Discontinued 1303 (Given - Provider: Joselyn Krause RN)1857 (Given - Provider: Joselyn Krause RN) 0904 (Given - Provider: Marcy Martinez RN)1750 (Given - Provider: Marcy Martinez RN) 0802 (Given - Provider: Marcy Martinez RN) fUROsemide (LASix) injection 20 mg (COMPLETED) 20 mg, Intravenous, ONCE, 1 dose, On Wed08/02/16 at 1230 1351 (Given - Provider: Marcy Martinez RN) fUROsemide (LASix) tablet 20 mg 20 mg, Oral, DAILY, First dose on Wed08/02/16 at 1415, Until Discontinued 1414 (Not Given - Provider: Marcy Martinez RN - Reason: Other - Comment: Duplicate order see MAR) gabapentin (NEURONTIN) capsule 100 mg 100 mg, Oral, NIGHTLY, First dose on [place] 07/30/16 at 2100, Until Discontinued 2037 (Given - Provider: Manju Chen RN) 2129 (Given - Provider: Janina Lockhart RN) glipiZIDE (GLUCOTROL) tablet 10 mg 10 mg, Oral, 2 TIMES DAILY WITH MEALS, First dose on [place] 07/30/16 at 1945, Until Discontinued 1304 (Given - Provider: Joselyn Krause RN)1857 (Given - Provider: Joselyn Krause RN) 0906 (Given - Provider: Marcy Martinez RN)175 (Given - Provider: Marcy Martinez RN) 0801 (Given - Provider: Marcy Martinez RN) hydrOXYzine (VISTARIL) capsule 25 mg 25 mg, Oral, 2 TIMES DAILY, First dose on [place] 07/30/16 at 2100, Until Discontinued, Therapeutic Interchange for hydrOXYzine hcl 25mg tab 1304 (Given - Provider: Joselyn Krause RN)2036 (Given - Provider: Manju Chen RN) 0905 (Given - Provider: Marcy Martinez RN)2129 (Given - Provider: Janina Lockhart RN) 0801 (Given - Provider: Marcy Martinez RN) insulin aspart (NovoLOG) injection 1-10 Units 1-10 Units, Subcutaneous, 4 TIMES DAILY WITH MEALS, First dose on [place] 07/30/16 at 2100, Until Discontinued, Medium dose algorithm: FSBS? Additional [...] 3 hours. Waste Sort Code = BKC 0804 (Given - Provider: Joselyn Krause, RN)1301 (Given - Provider: Joselyn Krause RN)1856 (Given - Provider: Joselyn Krause RN)2159 (Given - Provider: Manju Chen RN - Comment: Kurt confirmed.) 0857 (Given - Provider: Marcy Martinez RN)1322 (Given - Provider: Marcy Martinez RN - Comment: Verified with ROLF Hollins)1800 (Not Given - Provider: Marcy Martinez RN - Reason: Order parameters not met)2140 (Given - Provider: Janina Lockhart RN - Comment: BS 219) 0759 (Given - Provider: Marcy Martinez RN - Comment: Verified with ROLF Irwin)1209 (Given - Provider: Marcy Martinez RN - Comment: Verified with ROLF Dias) insulin glargine (LANTUS) injection 15 Units 15 Units, Subcutaneous, EVERY EVENING (INSULIN), First dose on Wed08/01/16 at 1900, Until Discontinued, Waste Sort Code = BKC 1753 (Given - Provider: Marcy Martinez RN) isosorbide mononitrate (IMDUR) CR tablet 60 mg 60 mg, Oral, DAILY, First dose on Wed07/31/16 at 0900, Until Discontinued 1304 (Given - Provider: Joselyn Krause RN) 0905 (Given - Provider: Marcy Martinez RN) 0801 (Given - Provider: Marcy Martinez RN) linagliptin (TRADJENTA) tablet 5 mg 5 mg, Oral, DAILY, First dose on Wed07/31/16 at 0900, Until Discontinued, Therapeutic interchange as the dipeptidly peptidase-4 (DPP-4) inhibitor of choice. 1303 (Given - Provider: Joselyn Krause RN) 0905 (Given - Provider: Marcy Martinez RN) 08 (Given - Provider: Marcy Martinez RN) lisinopril (PRINIVIL;ZESTril) tablet 5 mg 5 mg, Oral, DAILY, First dose on Wed07/31/16 at 0900, Until Discontinued, +++ACEI Medication+++ 1502 (Given - Provider: Joselyn Krause RN) 09 (Given - Provider: Marcy Martinez RN) 08 (Given - Provider: Marcy Martinez RN) miconazole (MICATIN) 2 % powder Topical, EVERY 12 HOURS SCHEDULED (2 times per day), 84 doses, First dose on Wed07/30/16 at 2100, Last dose on Wed09/10/16 at 0900, Application site: abd folds/ananya area 1304 (Given - Provider: Joselyn Krause RN)2034 (Given - Provider: aMnju Chen RN) 09 (Given - Provider: Marcy Martinez RN)2099 (Given - Provider: Janina Lockhart RN) 08 (Given - Provider: Marcy Martinez RN) NIFEdipine (PROCARDIA XL) CR tablet 90 mg 90 mg, Oral, DAILY, First dose on Wed07/31/16 at 0900, Until Discontinued 1302 (Given - Provider: Joselyn Krause RN) 09 (Given - Provider: Marcy Martinez RN) 08 (Given - Provider: Marcy Martinez RN) pantoprazole (PROTONIX) tablet 40 mg 40 mg, Oral, DAILY, First dose on Wed07/31/16 at 0900, Until Discontinued, Do not crush or chew 1302 (Given - Provider: Joselyn Krause RN) 09 (Given - Provider: Marcy Martinez RN) 08 (Given - Provider: Marcy Martinez RN) ranolazine (RANEXA) SR tablet 500 mg 500 mg, Oral, EVERY 12 HOURS SCHEDULED (2 times per day), First dose on Wed07/30/16 at 2100, Until Discontinued 1303 (Given - Provider: Joselyn Krause RN)2035 (Given - Provider: Manju Chen RN) 09 (Given - Provider: Marcy Martinez RN)2129 (Given - Provider: Janina Lockhart RN) 08 (Given - Provider: Marcy Martinez RN) regadenoson (LEXISCAN) injection 0.4 mg (COMPLETED) 0.4 mg, Intravenous, ONCE, 1 dose, On Wed07/31/16 at 1100, Echo Meds 1043 (Given - Provider: Ximena Brantley RN) risperiDONE (RisperDAL) tablet 2 mg 2 mg, Oral, NIGHTLY, First dose on Wed07/30/16 at 2100, Until Discontinued 2037 (Given - Provider: Manju Chen RN) 2129 (Given - Provider: Janina Lockhart RN) roPINIRole (REQUIP) tablet 1.5 mg 1.5 mg, Oral, NIGHTLY, First dose on Wed07/30/16 at 2100, Until Discontinued 2035 (Given - Provider: Manju Chen RN) 2130 (Given - Provider: Janina Lockhart RN) sertraline (ZOLOFT) tablet 150 mg 150 mg, Oral, DAILY, First dose on Wed07/31/16 at 0900, Until Discontinued 1303 (Given - Provider: Joselyn Krause RN) 09 (Given - Provider: Marcy Martinez RN) 08 (Given - Provider: Marcy Martinez RN) venlafaxine (EFFEXOR-XR) XR capsule 300 mg 300 mg, Oral, NIGHTLY, First dose on Wed07/30/16 at 2100, Until Discontinued 2036 (Given - Provider: Manju Chen RN) 2129 (Given - Provider: Janina Lockhart RN) PRN Medication Order 07/31/2016 08/01/2016 08/02/2016 dextrose 50 % solution 25 mL 25 mL, Intravenous, PRN, Starting on Wed07/30/16 at 1937, Until Wed08/02/16 at 2112, Low blood sugar, If FSBS less than 70 mg/dl and patient cannot take orally, Check FSBS every 30 minutes and repeat 25 mL of D50 IV push and notify physician if FSBS less than 70 mg/dL VESICANT diphenhydrAMINE (BENADRYL) tablet 25 mg 25 mg, Oral, EVERY 4 HOURS PRN, Starting on [place] 07/30/16 at 2115, Until 08/02/16 at 2111, Sleep 2159 (Given - Provider: Manju Chen, ROLF) 0018 (Given - Provider: Janina Lockhart RN) glucagon (human recombinant) (GLUCAGEN) injection 1 mg 1 mg, Intramuscular, PRN, Starting on [place] 07/30/16 at 1937, Until 08/02/16 at 2111, Low blood sugar, If FSBS less than 70 mg/dl, patient cannot take orally and without IV access, If patient is without IV access, give Glucagon 1 mg Intramuscularly, insert IV and call physician. guaiFENesin (ROBITUSSIN) 100 mg/5 mL liquid 200 mg 200 mg, Oral, EVERY 4 HOURS PRN, Starting on Wed08/02/16 at 1025, Until Wed08/02/16 at 2111, Congestion 1350 (Given - Provider: Marcy Martinez RN) miconazole (MICATIN) 2 % powder Topical, PRN, Starting on [place] 07/30/16 at 1958, Until Wed08/02/16 at 2111, Wound Care, Application site: abd folds/ananya area ondansetron (ZOFRAN) 4 mg/2 mL injection 4 mg(Linked Group 1) 4 mg, Intravenous, EVERY 6 HOURS PRN, Starting on [place] 07/30/16 at 1833, Until Wed08/02/16 at 2111, Nausea ondansetron (ZOFRAN) tablet 4 mg(Linked Group 1) 4 mg, Oral, EVERY 6 HOURS PRN, Starting on [place] 07/30/16 at 1833, Until 08/02/16 at 2111, Nausea oxyCODONE-acetaminophen (PERCOCET) 5-325 mg per tablet 1-2 Tab 1-2 Tablet, Oral, EVERY 4 HOURS PRN, Starting on [place] 07/30/16 at 1833, Until 08/02/16 at 2111, Pain, Begin with lowest dose unless otherwise directed. Reassess pain in one hour. If pain unrelieved, remainder of dose may be given to patient. Maximum adult dose of acetaminophen is 4000 mg from all sources in 24 hours. 0517 (Given - Provider: Manju Chen, ROLF)1300 (Given - Provider: Joselyn Krause RN) sodium chloride 0.9% syringe (COMPLETED) Intravenous, ONCE PRN, 1 dose, Starting on Wed07/31/16 at 0843, Until Wed07/31/16 at 0830, Line Care, Flush every shift or after IV medication, Radiology 0830 (Given - Provider: Mitchel Parker, SEWING TRIMMER) [id number] (MYOVIEW) injection 10-45 millicurie (COMPLETED) 10-45 millicurie, Intravenous, ONCE PRN, 1 dose, Starting on Wed07/31/16 at 0843, Until Wed07/31/16 at 1048, Radiology Procedure, Administration dose must be within 10% of the ordered dose for radiopharmaceutical medications., Radiology 1048 (Given - Provider: Geovanna Nguyễn, SEWING TRIMMER) [id number] (MYOVIEW) injection 10-45 millicurie (COMPLETED) 10-45 millicurie, Intravenous, ONCE PRN, 1 dose, Starting on Wed07/31/16 at 0843, Until Wed07/31/16 at 0830, Radiology Procedure, Administration dose must be within 10% of the ordered dose for radiopharmaceutical medications., Radiology 0830 (Given - Provider: Mitchel Parker, SEWING TRIMMER) Linked Groups Order Group 1: ondansetron (ZOFRAN) tablet 4 mgJump to med 4 mg, Oral, EVERY 6 HOURS PRN, Starting on [place] 07/30/16 at 1833, Until 08/02/16 at 2112, Nausea Or ondansetron (ZOFRAN) 4 mg/2 mL injection 4 mgJump to med 4 mg, Intravenous, EVERY 6 HOURS PRN, Starting on [place] 07/30/16 at 1833, Until 08/02/16 at 2112, Nausea documented in this encounter Orders Medications Ordered That Gaurav ht Not Have Been Administered Count Last Ordered Date First Ordered Date fUROsemide (LASix) tablet 20 mg 1 7 aspirin chewable tablet 324 mg 1 07/30/2016 dextrose 50 % solution 25 mL 1 07/30/2016 glucagon (human recombinant) (GLUCAGEN) injection 1 mg 1 07/30/2016 miconazole (MICATIN) 2 % powder 1 7 ondansetron (ZOFRAN) 4 mg/2 mL injection 4 mg 1 07/30/2016 ondansetron (ZOFRAN) tablet 4 mg 1 07/31/19 17 sodium chloride 0.9% syringe 5-10 mL 1 07/07 Nursing Count Last Ordered Date First Orde red Date ADMISSION 1 07/30/2016 Consult Count Last Ordered Date First Orde red Date IP CONSULT TO PASTORAL CARE 1 08/02/2016 IP CONSULT TO CARDIOLOGY 1 07/30/2016 PT Count Last Ordered Date First Orde red Date IP CONSULT TO PHYSICAL THERAPY 1 08/01/2016 Transfer Count Last Ordered Date First Orde red Date BED REQUEST 1 07/30/2016 documented in this encounter Care Teams [employer] Relationship Specialty Start Date End Date Alessandra Trevino August, [address] [facility] [address] [place] [id number] PCP - General Nurse Practitioner-Family 08/29/14 09/20/16 documented as of this encounter
--- OUTSIDE RECORDS SUMMARY | 2024-02-16 15:01 | XMS_ITS | Encounter Summary ---
Author Organization [place] [address] Care Team Providers Care Provider Relations Representative Name Role Phone Alessandra Trevino August Primary Care Provider + Reason for Visit * Auth/Cert/Inpt Specialty Diagnoses / Procedures Referred By Arsh t Referred To Contact Critical Care Medicine Diagnoses Chest pain angina Procedures CORONARY ANGIOGRAM / CARDIAC CATHETERIZATION [[id number]] [place] [address] [address] Phone: tel: fax: Referral ID Status Reason Start Date Expiration Date Visits Re quested Visits Authorized [id number] 12/29/2015 12/28/2016 1 1 Encounter Details Date Type Department Care Team (Late st Contact Info) Description 12/31/2015 4:00 PM EDT - 12/31/2015 6:00 PM EDT Surgery [facility] [address] [place] [address] Mita Tee MD [address] [place] [address] ELECTROPHYSIOLOGY STUDY + ABLATION Surgery Details Date/Time Status Location OR Service Patient Class Case Class Case Type Trauma Case? 12/31/2015 4:00 PM Posted [facility] CARDIAC [facility] EP LAB 2 Cardiac Inpatient N/A Panel 1 Procedure LRB Anes Op Region Wound Class Comments ELECTROPHYSIOLOGY STUDY + ABLATION N/A Monitored Anesthesia Care ELECTROPHYSIOLOG Y STUDY + ABLATION flutter ablation Surgeon Surgeon Role Service Panel Mita Tee MD Primary Cardiac 1 documented in this [...] Sign Reading Time Taken Comments Blood Pressure 145/95 12/31/2015 6:00 PM EDT Pulse 67 12/31/2015 6:00 PM EDT Temperature 36.9 ??C (98.4 ??F) 12/31/2015 1:44 PM ED T Respiratory Rate 18 12/31/2015 6:00 PM EDT Oxygen Saturation 96% 12/31/2015 5:31 PM EDT Inhaled Oxygen Concentration - - Weight 104.4 kg (230 lb 3.2 oz) 12/29/2015 6:48 AM EDT Height 174 cm (5' 8.5 ) 12/28/2015 10:4 0 PM EDT Body Mass Index 34.49 12/28/2015 10:40 PM EDT documented in this encounter Discharge Summaries * Ernie Pizano MD - 01/02/2016 11:45 AM EDT #[id number] * Ernie Pizano MD - 01/02/2016 11:45 AM EDT [facility]/[place]/[facility]/[place], [place] NAME: FABY PALM [facility]#: [id number] LOCATION/ROOM: [facility] [address] [place] [address] FACILITY: [facility] DICTATOR: Ernie Pizano DISCHARGE SUMMARY [...] Terrazas of cardiology, Dr. Erickson of gastroenterology, mine Shepherd of cardiology. HOSPITAL COURSE: The patient is [...] to need ablation. She was transferred to [facility] for this reason and she went for [...] to her previous living arrangement at the [facility] in [place], [place] with home health and physical therapy [...] as they wish. Ernie Pizano MD By: kg/djhg Job ID: [id number] Doc ID: [id number] CC: documented in this encounter Discharge Instructions * Discharge Instructions* Lia Hendricks RN - 01/01/2016 7:16 AM EDT [facility] Discharge Instructions - Leg Access Best wishes are extended to you on behalf of [facility] as you are discharged. Because we [...] sent through Care Everywhere. * METOPROLOL TABLETS (PANAMANIAN) * ATORVASTATIN TABLETS (PANAMANIAN) * GROIN SITE CARE (PANAMANIAN) * APIXABAN ORAL TABLETS (PANAMANIAN) * ATRIAL FLUTTER (PANAMANIAN) documented in this encounter Medications at Time [...] Code Departure Means Destination Home Health Care [facility] documented in this encounter Progress Notes * Lulu Sun MSW - 01/02/2016 2:56 PM EDT 01/01: Pt to transport [facility], advised arriving by 3:15-3:20p. Confirmed with Alissa at facility. [facility] accepted for SN and PT. * Lia Hendricks RN - 01/02/2016 2:44 PM EDT Patient understood discharge instructions. Informational handouts given to patient on Groin after care and restrictions, and new medicine, Eliquis, Lipitor and Metoprolol including side effects. * Lulu Sun MSW - 01/02/2016 12:29 PM EDT 01/01: SW update. Referral sent to [facility] for SN and PT. Awaiting response. [facility] transport,hopeful for transport around 3:00-3:30p. Discussed with RN and Alissa at [facility]. Alissa advised PT notes are similar to how pt was prior to coming into hospital and can accommodate [facility] for PT and SN. All in agreement. [...] Presentation Patient seated edge of bed Observation Corporate Representative;Bed Alarm Transfers Sit to Stand Contact guard [...] skilled PT Time In / Time Out [id number] IP PT Treatment Minutes 18 * Ernie Pizano MD - 01/02/2016 11:28 AM EDT [facility] Hospitalist Subjective: HPI: Received message from SS that pt and her son desire for the pt to return to the [facility]---PT rec rehab/SNF and pt seems agreeable to [...] LEAD Impression Stationary ECG Study [facility] [...] oral Lopressor ? Coronary artery disease involving [place] coronary artery of [place] heart without angina pectoris---s/p angio with LAD [...] is [facility]. Referral sent. Orderrequested for C for SN and PT from . Also requested DC orders if OK for dc. Will need [facility] transport. SW following. * Laila Terrazas MD - 01/02/2016 8:15 AM EDT CARDIOLOGY Daily Progress Note ? Patient personally seen and examined. ? Attending Physician: Mayo Omalley DO Admitting Physician: Mayo Omalley DO ? Admission Date: 12/28/2015 Admission diagnosis: [...] Fowlers Pulse: 67 71 67 71 Resp: 16 16 Temp: 98.4 ??F (36.9 ??C) 98.6 ??F [...] fraction is in the normal range. ?? Xigdmdoa-kh-lbklpv tricuspid regurgitation. RVSP estimated to be: 32 [...] CTI flutter on 12/31/2015 Remains In SR [id number]-[id number] 5 ? HX CVA ? HTN ? JACK Cr back to WNL: 1.27 ? Hx of schizophrenia ? Plan: No new suggestions. Discharge ok from cardiac standpoint. ? Laila Terrazas Cardiology * Anu Aguero RN - 01/01/2016 8:46 PM EDT Right groin site open to air. Excoriation noted. Cleansed after toileted. Powder applied to skin folds except right groin d/t ablation. Clean guaze applied to groin. Looks better than yesterday. Lessmoist. Ambulated to with walker and standby assist. Large amount [...] with chest pain. Pt initially presented to [facility] ED 12/25 with chest pain/tightness radiating to jaw, SOB. Found to have A-flutter- was seen by Cardiology and EP. Transferred to [facility] for LHC and ablation. Had cardiac cath [...] Presentation Patient resting in bed Observation Clay Catheter;Corporate Representative Bed Mobility Supine to Sit Mod assist [...] skilled PT Time In / Time Out [id number] IP PT Treatment Minutes 14 * Lia [...] 01/01/16 1501 Assessment Complete Actual Discharge Plan 12/31: Physical therapy recommended skilled rehab. Met [...] LEAD Impression Stationary ECG Study [facility] [...] oral Lopressor ? Coronary artery disease involving [place] coronary artery of [place] heart without angina pectoris---s/p angio with LAD [...] Ernie Pizano MD 01/01/2016 12:16 PM * Elida Martin APRN - 01/01/2016 10:25 AM EDT Electrophysiology Daily [...] atrial flutter ??? Coronary artery disease involving [place] coronary artery of [place] heart without angina pectoris ??? Ulcer of esophagus without bleeding ??? JACK (acute kidney injury) (HCC) ??? Chest pain ??? Hemiparesis affecting left side as late effect of stroke (HCC) ??? Essential hypertension ??? History of CVA (cerebrovascular accident) Plan: 1. Atrial flutter- likely CTI dependent ?? --> S/P CTI flutter ablation 12/31/15 --> [id number] score: 6. She is on Eliquis. AFL [...] Physician: Mayo Omalley, DO Admitting Physician: Mayo Omalley DO ? Admission Date: 12/28/2015 Admission diagnosis: [...] fraction is in the normal range. ?? Brdtqwxn-ph-uwonvo tricuspid regurgitation. RVSP estimated to be: 32 [...] of CTI flutter on 12/31/2015 In SR [id number] 5 ? HX CVA ? HTN ? [...] EKG 12 LEAD Impression Stationary ECG Study [facility] Interpretive Statements SINUS RHYTHM WITH FREQUENT [...] per Card ? Coronary artery disease involving [place] coronary artery of [place] heart without angina pectoris---s/p angio with LAD [...] MD 12/31/2015 10:51 AM * Stewart Robert [facility] - 12/31/2015 7:57 AM EDT S: Faby Palm is a(n) 65 y.o. female with diagnosis of A-FIB (CHADS2=5). Allergies: Compazine [prochlorperazine edisylate]; Haswell; and Talwin [pentazocine lactate] Pharmacy managing heparin therapy. Bleeding signs/symptoms noted: none. O: Most Recent Labs: Recent Labs 12/28/15214912/29/1561912/30/15 0620 WBC 7.5 7.2 8.6 HGB 12.5 12.3 11.9* HCT 36.9 36.4 36.0 PLT 142* 145 160 Platelets are being monitored at least every 48 hours while the patient is receiving unfractionatedheparin therapy. Recent Labs 12/26/15 19012/28/15 0651 12/28/15214912/29/15 0458 12/30/15 0710 12/31/15 0512 INR 1.02 [...] for goal (anti-Xa 0.3 - 0.7 unit/mL). Stewart Lindo PharmD * Laila Terrazas MD - 12/31/2015 7:53 AM EDT CARDIOLOGY Daily Progress Note ? Patient personally seen and examined. ? Attending Physician: Mayo Omalley DO Admitting Physician: Mayo Omalley DO ?? Admission [...] fraction is in the normal range. ?? Kkeiwdyd-sq-gsupqz tricuspid regurgitation. RVSP estimated to be: 32 [...] Rate controlled. TSH normal On heparin infusion Kci0kp6-zhhg 5 ? HX CVA ? HTN ? JACK Cr 1.66 ? Hx of schizophrenia ? Plan: Ablation later today per EP. Hemodynamically stable. ?? Laila Terrazas Cardiology * Patricia Mathew, ROLF - 12/31/2015 1:53 AM EDT Vital signs stable. cardizem drip infusing as ordered. Monitor remains atrial flutter. Right groin folds excoriated no bleeding or hematoma at cath site. Up to bathroom with assistance and tolerated fair. Bed alarm in place for safety. Offers no complaints. * Charity Butler RN - 12/30/2015 3:22 PM EDT 12/30/15 0118 Assessment Complete Actual Discharge Plan 12/29 CC: Called and spoke with nurse at [facility] regarding patient returning there when medically stable. [...] ablation tomm. ??? Coronary artery disease involving [place] coronary artery of [place] heart without angina pectoris---s/p angio yest with [...] with chest pain. Pt initially presented to [facility] ED 12/25 with chest pain/tightness radiating to jaw, SOB. Found to have A-flutter- was seen by Cardiology and EP. Transferred to [facility] for LHC and ablation. Had cardiac cath [...] Home Living/Prior Function Type of Home Facility ([facility]) Home Equipment 2 wheel walker Level of Assistance Ambulatory in home;Needs assistance with ADLs;Needs assistance with homemaking Lives With (has 2 roommates per pt) Additional Comments Pt reports she gets around independently with walker, only needs assist for bathing. States facility provides meals and does housework. Pt reports several falls recently. Observation Presentation Patient resting in bed Observation PICC line;Corporate Representative;Bed Alarm UE Assessment Additional Comments general weakness [...] skilled PT Time In / Time Out 0139-0891 IP PT Evaluation Minutes 15 IP PT [...] seen by Cardiology and EP. Transferred to [facility] for LHC and ablation. Had cardiac cath [...] Home Living/Prior Function Type of Home Facility ([facility]) Home Equipment 2 wheel walker Level of Assistance Ambulatory in home;Needs assistance with ADLs;Needs assistance with homemaking Lives With (has 2 roommates per pt) Additional Comments Pt reports she gets around independently with walker, only needs assist for bathing. States facility provides meals and does housework. Pt reports several falls recently. Observation Presentation Patient resting in bed Observation PICC line;Corporate Representative;Bed Alarm UE Assessment Additional Comments general weakness [...] skilled PT Time In / Time Out 5648-8374 IP PT Evaluation Minutes 15 IP PT [...] flutter (HCC) ??? Coronary artery disease involving [place] coronary artery of [place] heart without angina pectoris ??? Esophageal ulcer [...] information above including history, exam, and recommendations. note Persistent atrial flutter: --> CTI flutter [...] kg/(m^2). Intake/Output Summary (Last 24 hours) at 12/30/1558 Last data filed at 12/30/15 08 Gross per 24 hour Intake 801.77 ml [...] fraction is in the normal range. ?? Dhesxbzl-ok-armaur tricuspid regurgitation. RVSP estimated to be: 32 [...] Rate controlled. TSH normal On heparin infusion Byq5hx4-gaak 5 ?? HX CVA ? HTN ?? [...] having an ablation today. Will contact Dr. Nay dixon out. Will continue to monitor. * Stewart Robert [facility] - 12/30/2015 8:20 AM EDT S: Faby Palm is a(n) 65 y.o. female with diagnosis of A-FIB (CHADS2=5). Allergies: Compazine [prochlorperazine edisylate]; Haswell; and Talwin [pentazocine lactate] Pharmacy managing heparin therapy. Bleeding signs/symptoms noted: none. O: Most Recent Labs: Recent Labs 12/28/15214912/29/1561912/30/15 0620 WBC 7.5 7.2 8.6 HGB 12.5 12.3 11.9* HCT 36.9 36.4 36.0 PLT 142* 145 160 Platelets are being monitored at least every 48 hours while the patient is receiving unfractionatedheparin therapy. Recent Labs 12/26/15 19012/28/15 0651 12/28/15214912/29/15 0458 12/30/15 0710 INR 1.02 -- 1.08 -- 1.03 -- -- HEPARINLEVEL -- < > 0.92* < > 0.32 0.31 0.30 PTT 28.2 -- -- -- -- -- -- < > = values in this interval not displayed. Recent Labs 12/26/15 1314 12/26/15 1525 12/26/15 19012/28/15214912/29/15 0620 12/30/15 0620 TROPT <0.01 <0.01 <0.01 [...] unit/mL). Thanks, Stewart Robert PharmD * Hafsa Carrion RN - 12/30/2015 6:39 AM EDT Patient [...] states that she does not like this [facility], stating she likes the other [facility] . Asked patient why, patient states she [...] concerns. Be Brown MD 12/29/2015 6:44 PM [facility] Gastroenterology * Araseli Mcguire, RN - 12/29/2015 4:07 PM EDT Patient continuously [...] 65 y/o F transferred to [facility]g from [facility] on 12/27 for cardiac cath Past Med Hx COPD, DD, CHF, DM, HTN, suicide attempt, stoke 2010 left side affected, RLS * Araseli Mcguire RN - 12/29/2015 1:03 PM EDT ACT 151 [...] on. Will continue to monitor. * Pablo Montague [facility] - 12/29/2015 10:19 AM EDT S: Faby Palm is a(n) 65 y.o. female with diagnosis of A-FIB(CHADS2=5) . Allergies: Compazine [prochlorperazine edisylate]; Haswell; and Talwin [pentazocine lactate] Pharmacy managing heparin [...] 1907 12/28/15 0651 12/28/15 1454 12/28/15 2150 12/29/15 0458 INR 1.02 -- 1.08 -- 1.03 [...] chart. CC received consult patient is from [facility] in [place] .Per chart, patient agreeable to angiogram today, transferred to PICU forrecovery. Per chart, [facility], uses walker for ambulation.CC requesting PT eval when medcailly stable to asst with safe DC plan. CC will cont to follow. * Estrellita Harris RN - 12/29/2015 9:30 AM EDT Pt sent to orthodontic laboratory technician this am, now being transferred to PICU, report called and belongings packed andtaken to pt room 4410. * Melisa Menon RN - 12/29/2015 2:04 AM EDT Patient transferred from [facility] for angio in the AM and possible ablation later in the week. Alert and oriented x3, standby assist to bathroom with walker. Pt refused skin assessment. Oriented to room, call light. VSS, A flutter on monitor. * Faby Schuler [facility] - 12/28/2015 11:01 PM EDT Pharmacy Note - heparin S: Faby Palm is a 65 y.o. female with recent chest pain, A flutter, angio scheduled for tomorrow, transferred from [facility] today. Allergies: Compazine [prochlorperazine edisylate]; Haswell; and Talwin[pentazocine lactate] Pharmacy managing heparin therapy. [...] - 0.7 unit/mL). Thank you, Faby Schuler [facility] documented in this encounter H&P Notes * Mita Tee MD - 12/31/2015 4:29 PM EDT PHYSICIAN IMMEDIATE PRE-PROCEDURE UPDATE H&P and SEDATION ASSESSMENT Risks, benefits, potential complications and alternatives have been discussed with patient and/or patient's legal authorized patient services representative. HISTORY AND PHYSICAL Inpatient: H&P is [...] uvula visible) Cath PCI Bleeding Risk Score Silver Miner; <=25 mild, 26-65 mod, >65 high: 65 Height: 5' 8.5 (174 cm) Weight: 230 lb 3.2 oz (104.4 kg) BMI (Calculated): 34.9 Comment: Allergies Allergen Reactions ??? Compazine [Prochlorperazine Edisylate] ??? Haswell ??? Talwin [Pentazocine Lactate] Source Note - Mita Tee MD - 12/27/2015 5:36 PM EDT ADMISSION: 12/27/2015 PATIENT: Faby Palm [id number] PCP: Alessandra Trevino APRN I would like to thank Campbell Huston [...] Brown MD; Location: [facility] ENDOSCOPY; Service: Endoscopy Allergy Allergies Allergen Reactions ??? Compazine [Prochlorperazine Edisylate] ??? Haswell ??? Talwin [Pentazocine Lactate] Family History Family History Problem Relation Age of Onset ??? Cancer Mother raffaele cancer Social History Social History Substance Use [...] most recent cardiovascular imaging studies availabe in [facility] EMR were reviewed at time of [...] for rate control --> please transfer to [place] over weekend/Wednesday under hospitalist service for planned procedure on Wednesday 2. CVA in the past --> patient reports that this was related to hypertensive emergency * Mayo Omalley DO - 12/29/2015 7:30 AM EDT [facility] History and Physical Name: Faby Palm ADDRESS: [address] [place] [address] : 1950 AGE: 65 y.o. Admitting Physician: Mayo Omalley DO Date of Admit: 12/28/2015 Chief Complaint: aflutter History of Present Illness:65 yo WF admitted for evaluation of chest pain and palpitations, she wasfound the have A flutter 2:1. Placed on IV heparin and BB, seen by cardiology and EP. She had mild JACK on CKD with improved with IVF. Transfer from [facility] for ablation and C. Prescriptions Prior to [...] Allergen Reactions ??? Compazine [Prochlorperazine Edisylate] ??? Haswell ??? Talwin [Pentazocine Lactate] Past Medical History [...] Brown MD; Location: [facility] ENDOSCOPY; Service: Endoscopy Social History Social History [...] Oral 134 20 97 % - - 12/28/15 2240 - - - - - - 5' [...] -stable JACK -BMP daily Tono Omalley DO [facility] Hospitalist 12/29/2015 7:30 AM documented in this encounter Miscellaneous Notes * Plan of Care - Hafsa Carrion, RN - 12/30/2015 1:22 AM EDT Problem: [...] CHART FOR CHEST PAIN PT D/C FROM [facility] FOR BE ADMITTED AT [facility] FOR CARDIAC PROCEDURE MD NOTE 12/28: Chief Complaint: aflutter History of Present Illness:65 yo WF admitted for evaluation of chest pain and palpitations, she wasfound the have A flutter 2:1. Placed on IV heparin and BB, seen by cardiology and EP. She had mild JACK on CKD with improved with IVF. Transfer from [facility] for ablation and LHC. Cardiac cath 12/28: [...] + POC Routine 12/29/2015 8:41 AM EDT [facility] HEMODYNAMIC WAVEFORMS Routine 12/29/2015 8:28 AM EDT [...] Meter POC 126(H) 70 - 100 mg/dL [facility] Blood specimen (specimen) 01/02/2016 11:55 AM EDT 01/02/2016 11:55 AM EDT Mayo Omalley DO POINT OF CARE TEST ORDER DEBBIE Final Result Performing Organization Address City/[facility]/ZIP Co de Phone Number [facility] [address] [facility] [place] [address] * (ABNORMAL) GLUCOSE METER POC (01/02/2016 8:15 AM EDT) [facility] Signature Glucose Meter POC 66(L) 70 - 100 mg/dL [facility] Blood specimen (specimen) 01/02/2016 8:15 AM EDT 01/02/2016 8:15 AM EDT Mayo Omalley DO POINT OF CARE TEST ORDER DEBBIE Final Result Performing Organization Address City/[facility]/ZIP Co de Phone Number [facility] [address] [facility] [place] [address] * BASIC METABOLIC PANEL (01/02/2016 6:05 AM EDT) Sodium 143 136 - 145 mmol/L [facility] Potassium 4.0 3.5 - 5.0 mmol/L [facility] Chloride 104 98 - 107 mmol/L [facility] Total CO2 29 22 - 29 mmol/L [facility] Anion Gap 10 7 - 16 mmol/L [facility] Calcium 9.2 8.8 - 10.2 mg/dL [facility] Glucose Lvl 84 82 - 100 mg/dL [facility] BUN 17 8 - 23 mg/dL [facility] Creatinine 1.25 0.51 - 1.30 mg/dL [facility] GFR Afr Am 52 [facility] GFR Non Afr Am 43 [facility] Blood specimen (specimen) 01/02/2016 6:05 AM EDT 01/02/2016 7:32 AM EDT Ernie Pizano MD CHEMISTRY ORDERABLES Edited R esult - Final Performing Organization Address [facility] Co de Phone Number [facility] [address] [place] [address] * GLUCOSE METER POC (01/01/2016 11:07 PM EDT) Glucose Meter POC 92 70 - 100 mg/dL [facility] Blood specimen (specimen) 01/01/2016 11:07 PM EDT 01/01/2016 11:07 PM EDT us Mayo Omalley DO POINT OF CARE TEST ORDER DEBBIE Final Result Performing Organization Address [facility] de Phone Number [facility] [address] [facility] [place] [address] * SCANNED RHYTHM STRIPS (01/01/2016 9:53 PM EDT) Anatomical Region Laterality Modality Other 01/01/2016 9:53 PM EDT us Unknown Unknown IMG ECG ORDERABLES Final Result * GLUCOSE METER POC (01/01/2016 6:27 PM EDT) Glucose Meter POC 83 70 - 100 mg/dL [facility] Blood specimen (specimen) 01/01/2016 6:27 PM EDT 01/01/2016 6:27 PM EDT Mayo Omalley DO POINT OF CARE TEST ORDER DEBBIE Final Result Performing Organization Address [facility] de Phone Number [facility] POINT OF CARE LABORATORY [address] [facility] [place] [address] * (ABNORMAL) GLUCOSE METER POC (01/01/2016 12:52 PM EDT) Glucose Meter POC 137(H) 70 - 100 mg/dL [facility] Blood specimen (specimen) 01/01/2016 12:52 PM EDT 01/01/2016 12:52 PM EDT Result [facility] Mayo Omalley POINT OF CARE TEST ORDER DEBBIE Final Result Performing Organization Address [facility] de Phone Number [facility] [address] [place] [address] [place] [address] * SCANNED RHYTHM STRIPS (01/01/2016 9:31 AM EDT) Anatomical Region Laterality Modality Other 01/01/2016 9:31 AM EDT us Unknown Unknown IMG ECG ORDERABLES Final Result * (ABNORMAL) GLUCOSE METER POC (01/01/2016 8:43 AM EDT) Glucose Meter POC 120(H) 70 - 100 mg/dL [facility] Blood specimen (specimen) 01/01/2016 8:43 AM EDT 01/01/2016 8:43 AM EDT Mayo Omalley DO POINT OF CARE TEST ORDER DEBBIE Final Result Performing Organization Address [facility] de Phone Number [facility] [address] [facility] [place] [address] * SCANNED RHYTHM STRIPS (01/01/2016 6:16 AM EDT) Anatomical Region Laterality Modality Other 01/01/2016 6:16 AM EDT us Unknown Unknown IMG ECG ORDERABLES Final Result * (ABNORMAL) CBC (01/01/2016 6:10 AM EDT) WBC 7.4 4.0 - 11.0 x10(3)/mcL [facility] RBC 3.59(L) 3.80 - 5.10 x10(6)/[facility] Hgb 10.8(L) 12.0 - 15.6 gm/dL [facility] Hct 32.4(L) 35.7 - 45.9 % [facility] MCV 90.2 82.5 - 99.8 fL [facility] MCH 30.1 27.0 - 34.3 pg [facility] MCHC 33.4 32.1 - 35.3 gm/dL [facility] RDW 14.3 11.5 - 15.0 % [facility] Platelet 126(L) 144 - 423 x10(3)/[facility] MPV 9.3 6.8 - 10.8 fL [facility] Blood specimen (specimen) UPPER LIMB STRUCTURE / Unknown 01/01/2016 6:10 AM EDT 01/01/2016 6:13 AM EDT Narrative [facility] - 01/01/2016 6:23 AM EDT Hemogram every 2nd day while on heparin us Kaushik Perea MD HEMATOLOGY ORDERABLES Final Resu lt [facility] [address] [place] [address] * (ABNORMAL) BASIC METABOLIC PANEL (01/01/2016 6:10 AM EDT) Sodium 140 136 - 145 mmol/L [facility] Potassium 4.3 3.5 - 5.0 mmol/L [facility] Chloride 104 98 - 107 mmol/L [facility] Total CO2 27 22 - 29 mmol/L [facility] Anion Gap 9 7 - 16 mmol/L [facility] Calcium 8.7(L) 8.8 - 10.2 mg/dL [facility] Glucose Lvl 116(H) 82 - 100 mg/dL [facility] BUN 16 8 - 23 mg/dL [facility] Creatinine 1.27 0.51 - 1.30 mg/dL [facility] GFR Afr Am 51 [facility] OOD LABOR[facility] GFR Non Afr Am 42 [facility] Blood specimen (specimen) UPPER LIMB STRUCTURE / Unknown 01/01/2016 6:10 AM EDT 01/01/2016 6:13 AM EDT us Kaushik Perea MD CHEMISTRY ORDERABLES Edited Resu lt - Final Performing Organization Address [facility] Co de Phone Number [facility] [address] [place] [address] * (ABNORMAL) GLUCOSE METER POC (12/31/2015 8:17 PM EDT) Glucose Meter POC 115(H) 70 - 100 mg/dL [facility] Blood specimen (specimen) 12/31/2015 8:17 PM EDT 12/31/2015 8:17 PM EDT us Mayo Omalley DO POINT OF CARE TEST ORDER DEBBIE Final Result Performing Organization Address [facility] de Phone Number [facility] [address] [facility] [place] [address] * GLUCOSE METER POC (12/31/2015 5:32 PM EDT) Glucose Meter POC 73 70 - 100 mg/dL [facility] Blood specimen (specimen) 12/31/2015 5:32 PM EDT 12/31/2015 5:32 PM EDT us Mayo Omalley DO POINT OF CARE TEST ORDER DEBBIE Final Result Performing Organization Address [facility] Co de Phone Number [facility] [address] [place] [address] * GLUCOSE METER POC (12/31/2015 4:50 PM EDT) Glucose Meter POC 86 70 - 100 mg/dL [facility] Blood specimen (specimen) 12/31/2015 4:50 PM EDT 12/31/2015 4:50 PM EDT Mayo Omalley DO POINT OF CARE TEST ORDER DEBBIE Final Result [facility] POINT OF CARE LABORATORY [address] [place] [address] * EK EKG 12 LEAD (12/31/2015 4:47 PM EDT) Anatomical Region Laterality Modality Electrocardiogra phy 12/31/2015 4:56 PM EDT Impressions 12/31/2015 6:13 PM EDT ? Stationary ECG Study ?St. [...] 12-31-2015 18:13:01 EDT by Ashwin Hoffmann MD Mita Tee MD IMG ECG ORDERABLES Final Resu lt * ELECTROPHYSIOLOGY STUDIES + RADIO FREQUENCY ABLATION (12/31/2015 4:43 PM EDT) Narrative [facility] - 12/31/2015 4:44 PM EDT 1. Successful mapping and ablation of CTI flutter with CL 260ms with achievement of Bidirectional block Complication There were no immediate complications Elida Martin INVISIBLE [employer]ACES ORTHODONTIST ELECTROPHYSIOLOGY ORDER DEBBIE Final Result Performing Organization Address City/[facility]/ZIP Co de Phone Number [facility] * GLUCOSE METER POC (12/31/2015 2:03 PM EDT) Glucose Meter POC 72 70 - 100 mg/dL [facility] POINT OF CARE LAB[facility]ORY Blood specimen (specimen) 12/31/2015 2:03 PM EDT 12/31/2015 2:03 PM EDT Mayo Omalley DO POINT OF CARE TEST ORDER DEBBIE Final Result Performing Organization Address [facility] de Phone Number [facility] POINT OF CARE LABORATORY [address] [facility] [place] [address] * GLUCOSE METER POC (12/31/2015 12:37 PM EDT) Glucose Meter POC 89 70 - 100 mg/dL [facility] POINT [facility] CARE LAB[facility]ORY Blood specimen (specimen) 12/31/2015 12:37 PM EDT 12/31/2015 12:37 PM EDT Mayo Omalley DO POINT OF CARE TEST ORDER DEBBIE Final Result Performing Organization Address [facility] Co de Phone Number [facility] POINT OF CARE LABORATORY [address] [facility] [place] [address] * SCANNED RHYTHM STRIPS (12/31/2015 8:15 AM EDT) Anatomical Region Laterality Modality Other 12/31/2015 8:15 AM EDT Unknown Unknown IMG ECG ORDERABLES Final Result * (ABNORMAL) GLUCOSE METER POC (12/31/2015 7:20 AM EDT) [facility] Signature Glucose Meter POC 108(H) 70 - 100 mg/dL [facility] Blood specimen (specimen) 12/31/2015 7:20 AM EDT 12/31/2015 7:20 AM EDT Mayo Omalley DO POINT OF CARE TEST ORDER DEBBIE Final Result Performing Organization Address [facility] Phone Number [facility] [address] [place] [address] * (ABNORMAL) CBC (12/31/2015 5:12 AM EDT) [facility] WBC 7.6 4.0 - 11.0 x10(3)/mcL [facility] RBC 3.89 3.80 - 5.10 x10(6)/mcL [facility] Hgb 11.6(L) 12.0 - 15.6 gm/dL [facility] Hct 35.4(L) 35.7 - 45.9 % [facility] MCV 91.1 82.5 - 99.8 fL [facility] MCH 29.8 27.0 - 34.3 pg [facility] MCHC 32.7 32.1 - 35.3 gm/dL [facility] RDW 14.3 11.5 - 15.0 % [facility] Platelet 145 144 - 423 x10(3)/mcL [facility] MPV 10.8 6.8 - 10.8 fL [facility] Blood specimen (specimen) UPPER LIMB STRUCTURE / Unknown 12/31/2015 5:12 AM EDT 12/31/2015 9:44 AM EDT Narrative [facility] - 12/31/2015 10:21 AM EDT Hemogram every 2nd day while on heparin us Ernie Pizano MD HEMATOLOGY ORDERABLES Final R esult Performing Organization Address City/[facility]/ZIP Co de Phone Number [facility] [address] [place] [address] * HEPARIN ANTI-XA, UNF (12/31/2015 5:12 AM EDT) Pathologist [facility] Heparin Level UNF 0.35 0.30 - 0.70 IU/mL [facility] Comment:The therapeutic rang e for heparinized patients monitored by the Heparin Lvl UF is 0.30-0.70 IU/mL. Blood specimen (specimen) 12/31/2015 5:12 AM EDT 12/31/2015 7:30 AM EDT Narrative [facility] - 12/31/2015 7:41 AM EDT Heparin anti-Xa unfractionated level every day while on heparin Campbell Huston MD HEMATOLOGY ORDERABLES Final Resu lt Performing Organization Address City/[facility]/[place] [address] * (ABNORMAL) BASIC METABOLIC PANEL (12/31/2015 5:12 AM EDT) [facility] Sodium 142 136 - 145 mmol/L [facility] Potassium 4.0 3.5 - 5.0 mmol/L [facility] Chloride 102 98 - 107 mmol/L [facility] Total CO2 25 22 - 29 mmol/L [facility] Anion Gap 15 7 - 16 mmol/L [facility] Calcium 8.9 8.8 - 10.2 mg/dL [facility] Glucose Lvl 113(H) 82 - 100 mg/dL [facility] BUN 20 8 - 23 mg/dL [facility] Creatinine 1.55(H) 0.51 - 1.30 mg/dL [facility] GFR Afr Am 41 [facility] OOD [facility] GFR Non Afr Am [facility] Blood specimen (specimen) 12/31/2015 5:12 AM EDT 12/31/2015 7:31 AM EDT Ernie Pizano MD CHEMISTRY ORDERABLES Edited R esult - Final Performing Organization Address City/[facility]/ZIP Co de Phone Number [facility] [address] [place] [address] * SCANNED RHYTHM STRIPS (12/31/2015 12:34 AM EDT) Anatomical Region Laterality Modality Other 12/31/2015 12:3 4 AM EDT us Unknown Unknown IMG ECG ORDERABLES Final Result * (ABNORMAL) GLUCOSE METER POC (12/30/2015 8:14 PM EDT) Glucose Meter POC 116(H) 70 - 100 mg/dL [facility] POINT OF CARE LABORATORY Blood specimen (specimen) 12/30/2015 8:14 PM EDT 12/30/2015 8:14 PM EDT Mayo Stewart Omalley DO POINT OF CARE TEST ORDER DEBBIE Final Result Performing Organization Address [facility]/ZIP Co de Phone Number [facility] POINT OF CARE LABORATORY [address] [facility] [place] [address] * GLUCOSE METER POC (12/30/2015 5:06 PM EDT) Glucose Meter POC 75 70 - 100 mg/dL [facility] Blood specimen (specimen) 12/30/2015 5:06 PM EDT 12/30/2015 5:06 PM EDT Mayo Swensonshay Omalley POINT OF CARE TEST ORDER DEBBIE Final Result Performing Organization Address [facility] Phone Number [facility] [address] [facility] [place] [address] * SCANNED RHYTHM STRIPS (12/30/2015 4:11 PM EDT) Anatomical Region Laterality Modality Other 12/30/2015 4:11 PM EDT us Unknown Unknown IMG ECG ORDERABLES Final Result * (ABNORMAL) GLUCOSE METER POC (12/30/2015 2:15 PM EDT) Glucose Meter POC 157(H) 70 - 100 mg/dL [facility] POINT OF CARE LAB[facility]ORY Blood specimen (specimen) 12/30/2015 2:15 PM EDT 12/30/2015 2:15 PM EDT Mayo Omalley DO POINT OF CARE TEST ORDER DEBBIE Final Result Performing Organization Address City/[facility] Co de Phone Number [facility] [address] [facility] [place] [address] * (ABNORMAL) GLUCOSE METER POC (12/30/2015 8:53 AM EDT) Glucose Meter POC 108(H) 70 - 100 mg/dL [facility] Blood specimen (specimen) 12/30/2015 8:53 AM EDT 12/30/2015 8:53 AM EDT Mayo Omalley DO POINT OF CARE TEST ORDER DEBBIE Final Result Performing Organization Address [facility] de Phone Number [facility] [address] [place] [address] * HEPARIN ANTI-XA, UNF (12/30/2015 7:10 AM EDT) [facility] Heparin Level UNF 0.30 0.30 - 0.70 IU/mL [facility] Comment:The therapeutic rang e for heparinized patients monitored by the Heparin Lvl UF is 0.30-0.70 IU/mL. Blood specimen (specimen) 12/30/2015 7:10 AM EDT 12/30/2015 7:41 AM EDT Narrative [facility] - 12/30/2015 8:02 AM EDT Heparin anti-Xa unfractionated level every day while on heparin Campbell Huston MD HEMATOLOGY ORDERABLES Final Resu lt Performing Organization Address City/[facility] Co de Phone Number [facility] 1 [place] [address] * DIFFERENTIAL (12/30/2015 6:20 AM EDT) Neut Percent 58.5 % [facility] Lymph Percent 29.1 % [facility] [place] Percent 7.7 % [facility] Eos Percent 4.1 % [facility] Baso Percent 0.6 % [facility] Neut# 5.0 1.8 - 7.7 x10(3)/[facility] LABORATORY Lymph# 2.5 0.6 - 4.8 x10(3)/[facility] LABORATORY [place]# 0.7 0.0 - 1.3 x10(3)/[facility] LABORATORY Eos# 0.4 0.0 - 0.5 x10(3)/[facility] LABORATORY Baso# 0.1 0.0 - 0.2 x10(3)/[facility] LABORATORY Blood specimen (specimen) 12/30/2015 6:20 AM EDT 12/30/2015 6:25 AM EDT Campbell Huston MD HEMATOLOGY ORDERABLES Final Resu lt Performing Organization Address City/[facility] Co de Phone Number [facility] [address] [place] [address] * (ABNORMAL) BASIC METABOLIC PANEL (12/30/2015 6:20 AM EDT) Pathologist [facility] Sodium 141 136 - 145 mmol/L [facility] Potassium 4.0 3.5 - 5.0 mmol/L [facility] Chloride 101 98 - 107 mmol/L [facility] Total CO2 28 22 - 29 mmol/L [facility] Anion Gap 12 7 - 16 mmol/L [facility] Calcium 8.9 8.8 - 10.2 mg/dL [facility] Glucose Lvl 126(H) 82 - 100 mg/dL [facility] BUN 19 8 - 23 mg/dL [facility] Creatinine 1.66(H) 0.51 - 1.30 mg/dL [facility] GFR [facility] GFR Non Afr Am 31 [facility] Blood specimen (specimen) UPPER LIMB STRUCTURE / Unknown 12/30/2015 6:20 AM EDT 12/30/2015 6:25 AM EDT Campbell Huston MD CHEMISTRY ORDERABLES Edited Resu lt - Final Performing Organization Address City/[facility]/ZIP Co de Phone Number [facility] [address] [place] [address] * MAGNESIUM LEVEL (12/30/2015 6:20 AM EDT) Magnesium 1.9 1.6 - 2.4 mg/dL [facility] Blood specimen (specimen) UPPER LIMB STRUCTURE / Unknown 12/30/2015 6:20 AM EDT 12/30/2015 6:25 AM EDT Campbell Huston MD CHEMISTRY ORDERABLES Final Resul t Performing Organization Address City/[facility]/ZIP Co de Phone Number [facility] [address] [place] [address] * (ABNORMAL) CBC WITH AUTO DIFF (12/30/2015 6:20 AM EDT) WBC 8.6 4.0 - 11.0 x10(3)/mcL [facility] RBC 4.07 3.80 - 5.10 x10(6)/[facility] LABORATORY Hgb 11.9(L) 12.0 - 15.6 gm/dL [facility] Hct 36.0 35.7 - 45.9 % [facility] MCV 88.6 82.5 - 99.8 fL [facility] MCH 29.2 27.0 - 34.3 pg [facility] MCHC 32.9 32.1 - 35.3 gm/dL [facility] RDW 14.5 11.5 - 15.0 % [facility] Platelet 160 144 - 423 x10(3)/mcL [facility] MPV 9.6 6.8 - 10.8 fL [facility] Blood specimen (specimen) UPPER LIMB STRUCTURE / Unknown 12/30/2015 6:20 AM EDT 12/30/2015 6:25 AM EDT us Campbell Huston MD HEMATOLOGY ORDERABLES Final Resu lt Performing Organization Address City/[facility]/ZIP Co de Phone Number [facility] [address] [place] [address] * SCANNED RHYTHM STRIPS (12/29/2015 11:56 PM EDT) Anatomical Region Laterality Modality Other 12/29/2015 11:5 6 PM EDT Unknown Unknown IMG ECG ORDERABLES Final Result * GLUCOSE METER POC (12/29/2015 8:07 PM EDT) Glucose Meter POC 97 70 - 100 mg/dL [facility] POINT OF CARE LABORATORY Blood specimen (specimen) 12/29/2015 8:07 PM EDT 12/29/2015 8:07 PM EDT Mayo Omalley DO POINT OF CARE TEST ORDER DEBBIE Final Result Performing Organization Address [facility] Co de Phone Number [facility] POINT [facility] [address] [facility] [place] [address] * (ABNORMAL) GLUCOSE METER POC (12/29/2015 3:42 PM EDT) Glucose Meter POC 168(H) 70 - 100 mg/dL [facility] Blood specimen (specimen) 12/29/2015 3:42 PM EDT 12/29/2015 3:42 PM EDT Mayo Omalley DO POINT OF CARE TEST ORDER DEBBIE Final Result Performing Organization Address [facility] Co de Phone Number [facility] [address] [facility] [place] [address] * (ABNORMAL) GLUCOSE METER POC (12/29/2015 11:51 AM EDT) Glucose Meter POC 113(H) 70 - 100 mg/dL [facility] Blood specimen (specimen) 12/29/2015 11:51 AM EDT 12/29/2015 11:51 AM EDT Mayo Omalley DO POINT OF CARE TEST ORDER DEBBIE Final Result Performing Organization Address City/[facility] Co de Phone Number [facility] [address] [facility] [place] [address] * ACTIVATED CLOTTING TIME POC (12/29/2015 10:46 AM EDT) ACT -LR 151 89 - 169 second(s) [facility] POINT OF CARE LABORATORY Blood specimen (specimen) 12/29/2015 10:46 AM EDT 12/29/2015 10:46 AM EDT Mayo Omalley DO POINT OF CARE TEST ORDER DEBBIE Final Result Performing Organization Address [facility] de Phone Number [facility] POINT OF CARE LABORATORY [address] [facility] [place] [address] * (ABNORMAL) ACTIVATED CLOTTING TIME POC (12/29/2015 9:33 AM EDT) ACT -LR 178(H) 89 - 169 second(s) [facility] POINT OF CARE LAB[facility]ORY Blood specimen (specimen) 12/29/2015 9:33 AM EDT 12/29/2015 9:33 AM EDT Kaushik Perea MD POINT OF CARE TEST ORDERABLES Fi nal Result Performing Organization Address [facility] de Phone Number [facility] POINT OF CARE LABORATORY [address] [facility] [place] [address] * INTRAVASCULAR DOPPLER VELOCITY (12/29/2015 9:07 AM [...] documented. Complication There were no immediate complications us Mike Winchester MD CARDIAC CATH ORDERABLES Final Result Performing Organization Address [facility] Co de Phone Number [facility] * CORONARY ANGIOGRAM (COR/LHC/LV GRAM, CARDIAC CATHETERIZATION), LEFT VENTRICULOGRAM, LEFT HEART CATH(12/29/2015 9:07 AM EDT) Cath EF Estimated 50 % [facility] Narrative [facility] - 12/29/2015 10:41 AM EDT ?? [...] ORDERABLES Final Re sult Performing Organization Address [facility] de Phone Number [facility] * ACTIVATED CLOTTING TIME POC (12/29/2015 8:41 AM EDT) Pathologist [facility] ACT -LR 154 89 - 169 second(s) [facility] POINT OF CARE LABORATORY Blood specimen (specimen) 12/29/2015 8:41 AM EDT 12/29/2015 8:41 AM EDT us Kaushik Perea MD POINT OF CARE TEST ORDERABLES Fi nal Result Performing Organization Address [facility] de Phone Number [facility] POINT OF CARE LABORATORY [address] [place], [place] [address] [address] * CLOTH BALER HEMODYNAMIC WAVEFORMS (12/29/2015 8:28 AM EDT) 12/29/2015 8:28 AM EDT us Kaushik Perea MD CARDIAC CATH ORDERABLES Final Re sult Performing Organization Address [facility] de Phone Number [facility] [address] [place] [address] * SCANNED RHYTHM STRIPS (12/29/2015 8:06 AM EDT) Anatomical Region Laterality Modality Other 12/29/2015 8:06 AM EDT us Unknown Unknown IMG ECG ORDERABLES Final Result * (ABNORMAL) GLUCOSE METER POC (12/29/2015 7:56 AM EDT) Glucose Meter POC 117(H) 70 - 100 mg/dL [facility] POINT OF CARE LABORATORY Blood specimen (specimen) 12/29/2015 7:56 AM EDT 12/29/2015 7:56 AM EDT us Kaushik Perea MD POINT OF CARE TEST ORDERABLES Fi nal Result Performing Organization Address [facility] de Phone Number [facility] [address] [place] [address] * DIFFERENTIAL (12/29/2015 6:20 AM EDT) Neut Percent 67.4 % [facility] Lymph Percent 20.8 % [facility] [place] Percent 6.8 % [facility] Eos Percent 4.3 % [facility] Baso Percent 0.7 % [facility] Neut# 4.9 1.8 - 7.7 x10(3)/[facility] LABORATORY Lymph# 1.5 0.6 - 4.8 x10(3)/[facility] LABORATORY [place]# 0.5 0.0 - 1.3 x10(3)/[facility] LABORATORY Eos# 0.3 0.0 - 0.5 x10(3)/[facility] LABORATORY Baso# 0.1 0.0 - 0.2 x10(3)/[facility] LABORATORY Blood specimen (specimen) 12/29/2015 6:20 AM EDT 12/29/2015 6:24 AM EDT us Campbell Huston MD HEMATOLOGY ORDERABLES Final Resu lt Performing Organization Address City/[facility]/[place] [address] * MAGNESIUM LEVEL (12/29/2015 6:20 AM EDT) Pathologist [facility] Magnesium 1.8 1.6 - 2.4 mg/dL [facility] Blood specimen (specimen) UPPER LIMB STRUCTURE / Unknown 12/29/2015 6:20 AM EDT 12/29/2015 6:24 AM EDT us Campbell Huston MD CHEMISTRY ORDERABLES Final Resul t Performing Organization Address City/[facility]/ZIP Co de Phone Number [facility] [address] [place] [address] * CBC WITH AUTO DIFF (12/29/2015 6:20 AM EDT) [facility] WBC 7.2 4.0 - 11.0 x10(3)/mcL [facility] RBC 4.11 3.80 - 5.10 x10(6)/mcL [facility] Hgb 12.3 12.0 - 15.6 gm/dL [facility] Hct 36.4 35.7 - 45.9 % [facility] MCV 88.6 82.5 - 99.8 fL [facility] MCH 30.0 27.0 - 34.3 pg [facility] MCHC 33.8 32.1 - 35.3 gm/dL [facility] RDW 13.6 11.5 - 15.0 % [facility] Platelet 145 144 - 423 x10(3)/mcL [facility] MPV 9.5 6.8 - 10.8 fL [facility] Blood specimen (specimen) UPPER LIMB STRUCTURE / Unknown 12/29/2015 6:20 AM EDT 12/29/2015 6:24 AM EDT us Campbell Huston MD HEMATOLOGY ORDERABLES Final Resu lt Performing Organization Address City/[facility]/ZIP Co de Phone Number [facility] [address] [place] [address] * (ABNORMAL) BASIC METABOLIC PANEL (12/29/2015 6:20 AM EDT) Pathologist [facility] Sodium 140 136 - 145 mmol/L [facility] Potassium 3.9 3.5 - 5.0 mmol/L [facility] Chloride 103 98 - 107 mmol/L [facility] Total CO2 26 22 - 29 mmol/L [facility] Anion Gap 11 7 - 16 mmol/L [facility] Calcium 9.1 8.8 - 10.2 mg/dL [facility] Glucose Lvl 136(H) 82 - 100 mg/dL [facility] BUN 15 8 - 23 mg/dL [facility] Creatinine 1.19 0.51 - 1.30 mg/dL [facility] GFR Afr Am 55 [facility] OOD LABOR[facility] GFR Non Afr Am 46 [facility] Blood specimen (specimen) UPPER LIMB STRUCTURE / Unknown 12/29/2015 6:20 AM EDT 12/29/2015 6:24 AM EDT us Campbell Huston MD CHEMISTRY ORDERABLES Edited Resu lt - Final Performing Organization Address City/[facility] [place] [address] * HEPARIN ANTI-XA, UNF (12/29/2015 4:58 AM EDT) Heparin Level UNF 0.31 0.30 - 0.70 IU/mL [facility] Comment:The therapeutic rang e for heparinized patients monitored by the Heparin l UF is 0.30-0.70 IU/mL. Blood specimen (specimen) 12/29/2015 4:58 AM EDT 12/29/2015 6:09 AM EDT Narrative [facility] - 12/29/2015 6:32 AM EDT Heparin anti-Xa unfractionated level every day while on heparin us Campbell Huston MD HEMATOLOGY ORDERABLES Final Resu lt Performing Organization Address [facility] [facility]/ZIP Co de Phone Number [facility] [address] [place] [address] * DIFFERENTIAL (12/28/2015 9:50 PM EDT) Neut Percent 61.4 % [facility] Lymph Percent 26.1 % [facility] [place] Percent 6.7 % [facility] Eos Percent 5.0 % [facility] Baso Percent 0.8 % [facility] Neut# 4.6 1.8 - 7.7 x10(3)/[facility] Lymph# 2.0 0.6 - 4.8 x10(3)/[facility] [place]# 0.5 0.0 - 1.3 x10(3)/[facility] Eos# 0.4 0.0 - 0.5 x10(3)/mcL [facility] Baso# 0.1 0.0 - 0.2 x10(3)/[facility] Blood specimen (specimen) 12/28/2015 9:50 PM EDT 12/28/2015 10:13 PM EDT us Kaushik Perea MD HEMATOLOGY ORDERABLES Final Resu lt Performing Organization Address [facility] [place] [address] * HEPARIN ANTI-XA, UNF (12/28/2015 9:50 PM EDT) Heparin Level UNF 0.32 0.30 - 0.70 IU/mL [facility] Comment:The therapeutic rang e for heparinized patients monitored by the Heparin Lvl UF is 0.30-0.70 IU/mL. Blood specimen (specimen) 12/28/2015 9:50 PM EDT 12/28/2015 10:13 PM EDT us Kaushik Perea MD HEMATOLOGY ORDERABLES Final Resu lt Performing Organization Address City/[facility] [place] [address] * PT / INR (12/28/2015 9:50 PM EDT) PT 11.9 10.1 - 12.9 second(s) [facility] INR 1.03 0.88 - 1.12 [facility] Comment: Level of Therapy ??Indications ??Target INR Range Standard Dose Treatment and prophylaxis of venous 2.0 - 3.0 ??thrombosis, pulmonary embolism ?High Dose High risk patients with mechanical ?2.5 - 3.5 ??heart valves Blood specimen (specimen) UPPER LIMB STRUCTURE / Unknown 12/28/2015 9:50 PM EDT 12/28/2015 10:13 PM EDT Narrative [facility] - 12/28/2015 10:26 PM EDT PT/INR only if patient is on Coumadin. ??Notify transactional attorney if INR is 1.8 or greater us Kaushik Perea MD HEMATOLOGY ORDERABLES Final Resu lt [facility] [address] [place] [address] * (ABNORMAL) CBC WITH AUTO DIFF (12/28/2015 9:50 PM EDT) WBC 7.5 4.0 - 11.0 x10(3)/[facility] RBC 4.23 3.80 - 5.10 x10(6)/[facility]L [facility] Hgb 12.5 12.0 - 15.6 gm/dL [facility] Hct 36.9 35.7 - 45.9 % [facility] MCV 87.3 82.5 - 99.8 fL [facility] MCH 29.5 27.0 - 34.3 pg [facility] MCHC 33.8 32.1 - 35.3 gm/dL [facility] RDW 14.1 11.5 - 15.0 % [facility] Platelet 142(L) 144 - 423 x10(3)/mcL [facility] MPV 9.7 6.8 - 10.8 fL [facility] Blood specimen (specimen) UPPER LIMB STRUCTURE / Unknown 12/28/2015 9:50 PM EDT 12/28/2015 10:13 PM EDT Narrative [facility] - 12/28/2015 10:19 PM EDT Do not repeat if done in the past 10 days. Kaushik Perea MD HEMATOLOGY ORDERABLES Final Resu lt Performing Organization Address City/[facility]/ZIP Co de Phone Number [facility] [address] [place] [address] * (ABNORMAL) BASIC METABOLIC PANEL (12/28/2015 9:50 PM EDT) Sodium 141 136 - 145 mmol/L [facility] Potassium 4.1 3.5 - 5.0 mmol/L [facility] Chloride 104 98 - 107 mmol/L [facility] Total CO2 24 22 - 29 mmol/L [facility] Anion Gap 13 7 - 16 mmol/L [facility] Calcium 8.8 8.8 - 10.2 mg/dL [facility] Glucose Lvl 125(H) 82 - 100 mg/dL [facility] BUN 16 8 - 23 mg/dL [facility] Creatinine 1.15 0.51 - 1.30 mg/dL [facility] GFR Afr Am 57 [facility] GFR Non Afr Am 48 [facility] Blood specimen (specimen) UPPER LIMB STRUCTURE / Unknown 12/28/2015 9:50 PM EDT 12/28/2015 10:13 PM EDT Narrative [facility] - 12/28/2015 10:43 PM EDT Notify transactional attorney if GFR <45, and/or potassium greater than or equal to 5.5 or less than or equal to 3.0. ??Do not repeat if done within past 10 days unless angiography study done within past 10 days. Kaushik Perea MD CHEMISTRY ORDERABLES Edited Resu lt - Final [facility] [address] [place] [address] * GLUCOSE METER POC (12/28/2015 8:14 PM EDT) Glucose Meter POC 93 70 - 100 mg/dL [facility] Blood specimen (specimen) 12/28/2015 8:14 PM EDT 12/28/2015 8:14 PM EDT us Kaushik Perea MD POINT OF CARE TEST ORDERABLES Fi nal Result [facility] [address] [place] [address] documented in this encounter Visit Diagnoses Diagnosis [...] esophagus without bleeding Coronary artery disease involving [place] coronary artery of [place] heart without angina pectoris Precordial pain Typical atrial flutter (HCC) Atrial [...] Given 01/02/2016 8:29 AM EDT 81 mg atorvastatin (LIPITOR) tablet 20 mg 20 mg, Oral, NIGHTLY, First dose on 12/30/15 at 2100, Until Discontinued Given 01/01/2016 8:53 PM EDT 20 mg ferrous sulfate tablet 325 mg 325 mg, Oral, 2 TIMES DAILY WITH MEALS, First dose (after last modification) on 12/29/15 at 0800, Until Discontinued, Discharge/Readmit Given 01/02/2016 [...] Given 01/02/2016 8:30 AM EDT 10 mg HYDROcodone-acetaminophen (NORCO) 5-325 mg per tablet 1-2 Tab 1-2 Tablet, Oral, EVERY 6 HOURS PRN, Starting on 12/28/15 [...] least 3 hours. Waste Sort Code = BK, Discharge/Readmit Given 01/01/2016 12:57 PM EDT 1 [...] Given 01/02/2016 8:30 AM EDT 25 mg miconazole (MICATIN) 2 % powder Topical, EVERY 12 HOURS SCHEDULED (2 times per day), First dose on Wed12/29/15 at 1145, Until Discontinued, Application site: folds Given 01/02/2016 8:33 AM EDT miconazole (MICATIN) 2 % powder Topical, PRN, Starting on Wed12/29/15 at 1133, Until Wed01/02/16 at 1856, Wound Care, Application site: folds [...] NIGHTLY, First dose (after last modification) on [facility] 12/28/15 at 2100, Until Discontinued, Discharge/Readmit Given [...] restarting IV's and 20ml after blood draws venlafaxine (EFFEXOR-XR) XR capsule 300 mg 300 [...] dose on Wed12/29/15 at 2100, Until Discontinued 2204 (Given - Provider: Roslyn Hinkle RN) 2053 (Given - Provider: Anu Aguero RN) apixaban (ELIQUIS) tablet 5 mg 5 mg, Oral, 2 TIMES DAILY, First dose on Wed12/31/15 at 2230, Until Discontinued 2205 (Given - Provider: Roslyn Hinkle RN) 08 (Given - Provider: Lia Hendricks RN)2053 (Given - Provider: Anu Aguero RN) 0830 (Given - Provider: Lia Hendricks RN) ARIPiprazole (ABILIFY) tablet 30 mg 30 mg, Oral, DAILY, First dose (after last modification) on Wed12/29/15 at 0900, Until Discontinued, Discharge/Readmit 0834 (Given - Provider: Anu Aguero RN) 0813 (Given - Provider: Lia Hendricks RN) 0829 (Given - Provider: Lia Hendricks RN) aspirin EC tablet 81 mg 81 mg, Oral, DAILY, First dose on Wed12/30/15 at 0900, Until Discontinued, Post-op 0834 (Given - Provider: Anu Aguero RN) 0813 (Given - Provider: Lia Hendricks RN) 0829 (Given - Provider: Lia Hendricks RN) atorvastatin (LIPITOR) tablet 20 mg 20 mg, Oral, NIGHTLY, First dose on Wed12/30/15 at 2100, Until Discontinued 2205 (Given - Provider: Roslyn Hinkle RN) 2052 (Given - Provider: Anu Aguero RN) ferrous sulfate tablet 325 mg 325 mg, Oral, 2 TIMES DAILY WITH MEALS, First dose (after last modification) on Wed12/29/15 at 0800, Until Discontinued, Discharge/Readmit 0834 (Given - Provider: Anu Aguero RN)1808 (Given - Provider: Anu Aguero RN) 0813 (Given - Provider: Lia Hendricks RN)1822 (Given - Provider: Lia Hendricks RN) 08 [...] RN)1821 (Given - Provider: Lia Hendricks RN) 829 (Given - Provider: Lia Hendricks RN) insulin [...] not met)1800 (Not Given - Provider: Anu Aguero RN - Reason: Order parameters not met)2100 [...] Hendricks RN) 08 (Given - Provider: Lia Hednricks RN) lisinopril (PRINIVIL;ZESTril) tablet 5 mg 5 mg, Oral, DAILY, First dose on 12/29/15 at 1000, Until Discontinued, +++ACEI Medication+++ Hold for SBP less than 100 0834 (Given - Provider: Anu Aguero RN) 0813 (Given - Provider: Lia Hendricks RN) 0829 (Given - Provider: Lia Hendricks RN) metoprolol (LOPRESSOR) tablet 25 mg 25 mg, Oral, 2 TIMES DAILY, First dose (after last modification) on Wed12/31/15 at 2100, Until Discontinued, Hold for SBP less than 100 or pulse less than 60, Discharge/Readmit 2206 (Given - Provider: Roslyn Hinkle RN) 08 (Given - Provider: Lia Hendricks, ROLF)2052 (Given - Provider: Anu Aguero, ROLF) 0830 (Given - Provider: Lia Hendricks, ROLF) metoprolol (LOPRESSOR) tablet 50 mg (CANCELED) 50 mg, Oral, 2 TIMES DAILY, First dose (after last modification) on Wed12/28/15 at 2100, Until Discontinued, Discharge/Readmit 0834 (Given - Provider: Anu Aguero RN) miconazole (MICATIN) 2 % powder Topical, EVERY 12 HOURS SCHEDULED (2 times per day), First dose on Wed12/29/15 at 1145, Until Discontinued, Application site: [facility] 0837 (Given - Provider: Anu Aguero RN)2206 (Given - Provider: Roslyn Hinkle RN) 08 (Given - Provider: Lia Hendricks, ROLF)2053 (Given - Provider: Anu Aguero, ROLF) 08 (Given - Provider: Lia Hendricks RN) pantoprazole (PROTONIX) tablet 40 mg 40 mg, Oral, 2 TIMES DAILY, First dose (after last modification) on 12/28/15 at 2100, Until Discontinued, Do not crush or chew, Discharge/Readmit 0834 (Given - Provider: Anu Aguero RN)2205 (Given - Provider: Roslyn Hinkle RN) 08 (Given - Provider: Lia Hendricks, ROLF)2052 (Given - Provider: Anu Aguero RN) 08 (Given - Provider: Lia Hendricks RN) risperiDONE (RisperDAL) tablet 2 mg 2 [...] given at 0552)1501 (Given - Provider: Lia Hendricks, ROLF)1502 (Given - Provider: Lia Hendricks, ROLF)2343 (Given - Provider: Anu Aguero RN)2344 (Given - Provider: Anu Aguero, ROLF) 0615 (Given - Provider: Anu Aguero RN - Comment: red port)0616 (Given - Provider: Anu Aguero RN - Comment: purple port flushed)1400 (Not Given - Provider: Lia Hendricks, ROLF - Reason: Loss of IV access - Comment: pt d/c'd Home) sodium chloride 0.9% syringe (CANCELED) Intravenous, EVERY 8 HOURS SCHEDULED (3 times per day), First dose on Wed12/31/15 at 1700, Until Discontinued, Flush with 3-5 mL saline for PERIPHERAL saline lock maintenance. 180 (Given - Provider: Anu Aguero RN)220 (Given - Provider: Roslyn Hinkle RN) 0552 (Given - Provider: Charity Perry RN) venlafaxine (EFFEXOR-XR) XR capsule 300 mg 300 mg, Oral, NIGHTLY, First dose (after last modification) on 12/28/15 at 2100, Until Discontinued, Discharge/Readmit 2205 (Given - Provider: Roslyn Hinkle, ROLF) 205 (Given - Provider: Anu Aguero, ROLF) Continuous Medication Order 12/31/2015 01/01/2016 01/02/2016 0.9 % NaCl infusion (CANCELED) Intravenous, at 50 mL/hr, CONTINUOUS, Starting on Wed12/30/15 at 1200, Until Wed01/01/16 at 1222 0149 (New Bag - Provider: Patricia Mathew RN)1233 (Rate/Dose Change - Provider: Anu Aguero RN) 0802 (New Bag - Provider: Lia Hendricks, RN)1257 (Stopped - Provider: Lia Hendricks, RN) PRN Medication Order 12/31/2015 01/01/2016 01/02/2016 0.45 % NaCl infusion (CANCELED) Intravenous, at 30 mL/hr, PREPROCEDURE CONTINUOUS, Starting on Wed12/31/15 at 0645, Until Wed01/01/16 at 0848, Administer 1 hour prior to procedure in left arm with 20 gauge or larger IV catheter, Pre-op ([facility] Meds) 1358 (New Bag - Provider: Karly Ames, ROLF)1627 (Anesthesia Volume Adjustment - Provider: Alyx Solo [...] mg 1 mg, Intravenous, PRN, Starting on 12/29/15 at 0920, Until Francine 01/02/16 at 1856, Ventricular fibrillation, Emergency order for [...] Oral, EVERY 6 HOURS PRN, Starting on 12/28/15 [...] Hendricks, ROLF) 1118 (Given - Provider: Lia Hendricks RN) hydrOXYzine (VISTARIL) capsule 50 mg 50 mg, Oral, 3 TIMES DAILY PRN, Starting on 12/29/15 at 0953, Until Francine 01/02/16 at 1856, Itching, Therapeutic Interchange for hydrOXYzine hcl 50mg tab lactated ringers infusion Intravenous, at 100 mL/hr, PREPROCEDURE CONTINUOUS, Starting on Wed12/31/15 at 0645, Until Francine 01/02/16 at 1856, To be given in SDS/Pre-op Holding Area, Pre-op (Holding/SDS Meds) metoclopramide HCl (REGLAN) injection 10 mg 10 mg, Intravenous, EVERY 6 HOURS PRN, Starting on Wed12/29/15 at 0920, Until Francine 01/02/16 at 1856, Nausea, Post-op miconazole (MICATIN) 2 % powder Topical, PRN, Starting on Wed12/29/15 at 1133, Until Francine 01/02/16 at 1856, [...] First Ordered Date sodium chloride 0.9% syringe 10 mL 2 201512/28/2015 sodium chloride 0.9% syringe 10-20 mL 1 acetaminophen (TYLENOL) tablet 650 mg 4 12/28/2015 apixaban (ELIQUIS) tablet 5 mg 1 12/31/2015 glipiZIDE (GLUCOTROL) tablet 10 mg 2 201512/29/2015 metoprolol (LOPRESSOR) tablet 25 mg 1 12/30 ondansetron (ZOFRAN) 4 mg/2 mL injection 4 mg 3 12/31/2015 12/28/2015 ondansetron (ZOFRAN-ODT) dis integrating tablet 8 mg 1 12/31/2015 oxyCODONE-acetaminophen (PER COCET) 5-325 mg per tablet 1-2 Tab 2 12/31/2015 12/29/2015 sodium chloride 0.9% IV line flush 20-50 mL 2 12/31/2015 12/28/2015 sodium chloride 0.9% syringe 3 12/31/2015 12/28/2015 0.45 % NaCl infusion 1 12/30/2015 0.9 % NaCl infusion 3 12/30/2015 12/28/19 16 atorvastatin (LIPITOR) tablet 20 mg 1 12/29 lactated ringers infusion 1 12/30/2015 amitriptyline (ELAVIL) tablet 75 mg 1 12/28 ARIPiprazole (ABILIFY) tablet 30 mg 2 12/2812/28/2015 aspirin EC tablet 81 mg 2 12/29/2015 atropine injection 0.5 mg 1 12/29/2015 dextrose 50 % solution 25 g 1 12/29/2015 diltiazem (CARDIZEM) 1 mg/mL in dextrose 5% 125 mL infusion 1 12/29/2015 diltiazem (CARDIZEM) 10 mg i n dextrose 5% 10 mL iv bolus 1 12/29/2015 EPINEPHrine injection 1 mg 1 12/29/2015 fentaNYL (SUBLIMAZE) 50 mcg/mL injection 1 12/29/2015 fentaNYL (SUBLIMAZE) 50 mcg/ mL injection 50 mcg 2 12/29/2015 ferrous sulfate tablet 325 mg 2 12/29/2015 12/28/2015 gabapentin (NEURONTIN) capsule 100 mg 2 12/28/2015 heparin (porcine) injection 1 12/29/2015 heparin 25,000 units in 250 mL 0.45% NaCl 2 12/29/2015 12/28/2015 hydrOXYzine (VISTARIL) capsule 50 mg 1 12/07 linagliptin (TRADJENTA) tablet 5 mg 2 12/2812/28/2015 lisinopril (PRINIVIL;ZESTril) tablet 5 mg 1 12/29/2015 LORazepam (ATIVAN) tablet 1 mg 1 12/29/2015 metoclopramide HCl (REGLAN) injection 10 mg 1 12/29/2015 miconazole (MICATIN) 2 % powder 2 6 midazolam (VERSED) injection 1 12/29/2015 pantoprazole (PROTONIX) tablet 40 mg 2 12/0712/28/2015 risperiDONE (RisperDAL) tablet 2 mg 2 12/2812/28/2015 roPINIRole (REQUIP) tablet 1.5 mg 2 016 12/28/2015 torsemide (DEMADEX) tablet 10 mg 1 12/29/19 16 venlafaxine (EFFEXOR-XR) XR capsule 300 mg 2 12/29/2015 12/28/2015 acetaminophen (OFIRMEV) infusion 1,000 mg 1 12/28/2015 acetaminophen (TYLENOL) suppository 650 mg 1 12/28/2015 aspirin tablet 325 mg 1 12/28/2015 dextrose 50 % solution 25 mL 1 12/28/2015 glucagon (human recombinant) (GLUCAGEN) injection 1 mg 1 12/28/2015 HYDROcodone-acetaminophen (N ORCO) 5-325 mg per tablet 1-2 Tab 1 12/28/2015 insulin aspart (NovoLOG) inj ection 1-10 Units 1 12/28/2015 metoprolol (LOPRESSOR) tablet 50 mg 1 12/27 nitroGLYCERIN (NITROGLYN) 2 % ointment 1 Inch 1 12/28/2015 ondansetron (ZOFRAN) tablet 4 mg 1 12/28/19 16 Lab Orders Without Results Count Last Ordered D ate First Ordered Date BASIC METABOLIC PANEL 1 12/29/2015 Procedures Count Last Ordered Date First Orde red Date CASE REQUEST CLOTH BALER 1 12/30/2015 Nursing Count Last Ordered Date [...] 12/28/2015 documented in this encounter Care Teams Provider Relations Representative Relationship Specialty Start Date End Date Alessandra Trevino August, [address] [facility] [address] [place] [address] PCP - General Nurse Practitioner-Family 08/29/14 09/20/16 documented as of this encounter
--- OUTSIDE RECORDS SUMMARY | 2024-02-16 15:01 | XMS_ITS | Encounter Summary ---
Author Organization [place] [address] Care Team Providers Care Crown Perforator Operator Name Role Phone Alessandra Trevino August Primary Care Provider + Reason for Visit * Auth/Cert/Inpt Specialty Diagnoses / Procedures Referred By Arsh t Referred To Contact Critical Care Medicine Diagnoses Chest pain angina Procedures CORONARY ANGIOGRAM / CARDIAC CATHETERIZATION [[id number]] [facility] [address] Phone: tel: fax: Referral ID Status Reason Start Date Expiration Date Visits Re quested Visits Authorized [id number] 12/29/2015 12/28/2016 1 1 Encounter Details Date Type Department Care Team (Late st Contact Info) Description 12/31/2015 2:52 PM EDT Anesthesia Event [facility] [place] [address] Janes Mora MD [address] [place] [address] [facility] [place] [address] Payton Dow, HAM [address] [place] [address] Anesthesia Record Procedure Summary Procedure Name Responsible Anesthesiologist Anesthesia Start Time Anesthesia Stop Time ELECTROPHYSIOLOGY STUDY + ABLATION Janes Mora MD 12/31/15 1452 12/31/15 1648 Events Date Time Event Comment 12/31/2015 1423 1449 AN Equip Check 1452 An Start 1452 An Start Data 1452 Immediate Pre Anesthetic Ass es 1454 Anesthesia Ready 1457 an margaret now sangeetha gtt of f psr 1509 Incision 1635 an stop data 1648 Handoff I completed my SBAR handoff to the receiving nurse which have included the followin. Identification of the patient, family, or patient surrogate 2. Identification of the responsible practitioner 3. Pertinent medical history 4. Surgical procedure and reason for procedure 5. Intraoperative anesthetic management 6. Expectations/Plans for the early post-procedure period 7. 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 Lines, Drains, and Airways Type Details Placement Removal PICC Double Lumen Placement Date: 12/07 03/23; Placement Time: 1415; Size: 5; Orientation: Right; PICC Location: Basilic; Sutured: Securing device; Placement Verify: Xray, Tip in SVC, Blood Return; Description: dual lumen ; Length: 38 cm; Inserted By: Niko RICKETTS ; Insertion Attempts: 1; Local Anes: Injectable; Insertion Location: IR; Infection Prevention Measures: Yes; Avoiding Contact with Central Line: Yes; Hand Hygiene: Yes; Hand Hygiene Before Proc: Yes; Sterile Gown: Yes; Mask: Yes; Cap: Yes; Sterile Gloves: Yes; Skin Prep: Yes; Full Drape: Yes; Biopatch Applied: Yes; Ultrasound Guidance Used: Yes; Removal Date: 01/02/16; Removal Time: 1336; Removed By: Kendrick vera Rn,IVT; Post Removal: No complications, Catheter intact, Dressing applied (quik clot dressing in place(to be removed as instruction on 01-02pt supine, rn Meghna aware of removal); Removal Catheter Length: 38 cm; Catheter Tip Cultured: No 12/27/15 1415 by Araseli Hernández RN 01/02/16 1336 by Yecenia Vera RN Venous Sheath 12/31/15; 1510; Righ t femoral vein; (One 8fr, and ONE 8.5fr); No; Yes; Yes; Yes; Yes; Yes; Yes; Yes; SABA BANSAL 12/31/15 1510 by Jamilah Chapa RN 12/31/15 1627 by Jamilah Chapa RN documented in this encounter Social History Tobacco [...] on file documented as of this encounter OR Notes * Anesthesia Postprocedure Evaluation - Janes Mora MD - 12/31/2015 7:13 PM EDT Post-Anesthesia Evaluation Note Patient Name: Faby Palm Patient Date: December 31, 2015 Patient Location: [facility] Post OP Vitals: stable Level of Consciousness: awake Post Anesthesia Pain: adequate analgesia Long Acting Local Anesthetic: n/a Airway Patency: patent Respiratory: room air Cardiovascular: stable Hydration: euvolemic Nausea Controlled: yes * Anesthesia Preprocedure Evaluation - Stefani Berry MD - 12/30/2015 12:38 PM EDT Pre-Anesthesia Evaluation Note Patient Name: Faby Palm Sex: female Patient : 1950 Age: 65 y.o. Patient Date: December 30, 2015 Procedure: ELECTROPHYSIOLOGY STUDY + ABLATION ??flutter ablation Anesthesia Evaluation Patient summary reviewed, Nursing notes reviewed and Previous anesthesia No history of anesthetic complications Airway Mallampati: II TM distance: >3 FB Neck ROM: fullNo increased risk of difficult airway Dental - normal exam (+) edentulous Pulmonary breath sounds clear to auscultation (+)COPD, (-) shortness of breath, URI cough sputum Cardiovascular (+) hypertension,, CAD (angioplasty to LAD12/29/15), CHF, arrhythmias (atrial fibrillation) , , (-) angina, LUONG ECG reviewed Rhythm: irregular Rate: normal Neuro/Psych (+) CVA (left sided weakness), psychiatric history (h/o suicide attempt), peripheral neuropathy, GI/Hepatic/Renal (+) GERD, Endo/Other (+) diabetes mellitus type 2, back or neck pain (DDD):, anemia, Comments: RLS Current Other findings: Labs reviewed from 12/30/15: hgb 11.9, creat 1.66 EKG 12/27/15: SR, premature complexes, low QRS, possible anterior WI, inferior WI Echo 12/27/15: EF 60-65%, mild LVH, stage 3 diastolic dysfunction, trace-mild MR, mod-severe TR, RVSP 32, trace ID Body mass index is 34.49 kg/(m^2). Anesthesia Plan ASA 4 Anesthesia Plan: MAC Intravenous induction Monitors: STD Anesthetic plan and risks discussed with patient. NPO>MN documented in this encounter Plan of Treatment Not on file documented as of this encounter Visit Diagnoses Not on filedocumented in this encounter Administered Medications Inactive Administered Medications - up to 1 most recent administrations Medication Order MAR Action Action Date Dose Rate Site fentaNYL (SUBLIMAZE) 50 mcg/mL injection Intravenous, PRN (Anesthesia), Starting on Wed12/31/15 at 1536, Until Wed12/31/15 at 1648, Anesthesia Intra-op Given 12/31/2015 3:36 PM EDT 25 mcg ketamine (KETALAR) injection PRN (Anesthesia), Starting on Wed12/31/15 at 1503, Until Wed12/31/15 at 1648, Anesthesia Intra-op Given 12/31/2015 3:30 PM EDT 20 mg lidocaine 1% 10 mg/mL (1 %) injection Intravenous, PRN (Anesthesia), Starting on Wed12/31/15 at 1455, Until Wed12/31/15 at 1648, Anesthesia Intra-op Given 12/31/2015 2:55 PM EDT 50 mg propofol (DIPRIVAN) infusion 10 mg/mL Intravenous, CONTINUOUS PRN, Starting on Wed12/31/15 at 1455, Until Wed12/31/15 at 1647, Anesthesia Intra-op Rate/Dose Change 12/31/2015 3:30 PM EDT 125 mcg/kg/min 78.3 mL/hr propofol (DIPRIVAN) injection Intravenous, PRN (Anesthesia), Starting on Wed12/31/15 at 1530, Until Wed12/31/15 at 1648, Anesthesia Intra-op Given 12/31/2015 3:30 PM EDT 40 mg documented in this encounter Care Teams Crown Perforator Operator Relationship Specialty Start Date End Date Uriel Alessandra August, [address] [facility] [address] [place] [id number] PCP - General Nurse Practitioner-Family 08/29/14 09/20/16 documented as of this encounter
--- OUTSIDE RECORDS SUMMARY | 2024-02-16 15:01 | XMS_ITS | Encounter Summary ---
Author Organization [place] [address] Care Team Providers Care Endless Steamer Tender Name Role Phone Alessandra Trevino August Primary Care Provider + Reason for Visit * Auth/Cert/Inpt Specialty Diagnoses / Procedures Referred By Arsh t Referred To Contact Critical Care Medicine Diagnoses Chest pain angina Procedures CORONARY ANGIOGRAM / CARDIAC CATHETERIZATION [[id number]] [facility] [place] [id number] Phone: tel: fax: Referral ID Status Reason Start Date Expiration Date Visits Re quested Visits Authorized [id number] 12/29/2015 12/28/2016 1 1 Encounter Details Date Type Department Care Team (Late st Contact Info) Description 12/29/2015 8:00 AM EDT - 12/29/2015 9:00 AM EDT Surgery [facility] BAKERY DEMONSTRATOR [facility] [place] [address] Kaushik Perea MD [address] [place] [address] CORONARY ANGIOGRAM / CARDIAC CATHETERIZATION Surgery Details Date/Time Status Location OR Service Patient Class Case Class Case Type Trauma Case? 12/29/2015 8:00 AM Posted [facility] CARDIAC BAKERY DEMONSTRATOR IMAGING ED[facility] CCL 3 Cardiac Surgery Admit N/A Panel 1 Procedure LRB Anes Op Region Wound Class Comments CORONARY ANGIOGRAM / CARDIAC CATHETERIZATION N/A None CORONARY ANGIOGRAM / CARDIAC CATHETERIZATION [[id number]] LEFT VENTRICULOGRAM N/A None LEFT HEART CATHETERIZATION N/A None Panel 2 Procedure LRB Anes Op Region Wound Class Comments INTRAVASCULAR DOPPLER VELOCITY N/A None Surgeon Surgeon Role Service Panel Kaushik Perea MD Primary Cardiac 1 Mike Winchester MD Primary Cardiac 2 documented in this encounter Social History Tobacco [...] Sign Reading Time Taken Comments Blood Pressure 150/101 12/29/2015 7:45 AM EDT Pulse 106 12/29/2015 7:45 AM EDT Temperature 36.7 ??C (98.1 ??F) 12/29/2015 7:45 AM ED T Respiratory Rate 18 12/29/2015 7:45 AM EDT Oxygen Saturation 94% 12/29/2015 7:45 AM EDT Inhaled Oxygen Concentration - - Weight 104.4 kg (230 lb 3.2 oz) 12/29/2015 6:48 AM EDT Height 174 cm (5' 8.5 ) 12/28/2015 10:4 0 PM EDT Body Mass Index 34.49 12/28/2015 10:40 PM EDT documented in this encounter Discharge Summaries * Ernie Pizano MD - 01/02/2016 11:45 AM EDT #[id number] * Ernie Pizano MD - 01/02/2016 11:45 AM EDT [facility]/[place], [place] NAME: FABY PALM DEBBIE#: [id number] LOCATION/ROOM: [facility] [address] [place] [address] FACILITY: [facility] DICTATOR: Ernie Pizano DISCHARGE SUMMARY [...] Terrazas of cardiology, Dr. Erickson of gastroenterology, Dr. Tee et susan. of cardiology. HOSPITAL COURSE: The patient is [...] to need ablation. She was transferred to [facility] for this reason and she went [...] to her previous living arrangement at the [facility] in [place], [place] with home health and physical therapy [...] Ernie Pizano MD By: kg/djhg Job ID: [id number] Doc ID: [id number] CC: documented in this encounter Discharge Instructions [...] sent through Care Everywhere. * METOPROLOL TABLETS (EQUATORIAL GUINEAN) * ATORVASTATIN TABLETS (EQUATORIAL GUINEAN) * GROIN SITE CARE (EQUATORIAL GUINEAN) * APIXABAN ORAL TABLETS (EQUATORIAL GUINEAN) * ATRIAL FLUTTER (EQUATORIAL GUINEAN) documented in this encounter Medications at Time [...] Code Departure Means Destination Home Health Care [facility] documented in this encounter Progress Notes * Lulu Sun MSW - 01/02/2016 2:56 PM EDT 01/01: Pt to transport [facility], advised arriving by 3:15-3:20p. Confirmed with Alissa at facility. [facility] accepted for SN and PT. * Lia Hendricks, ROLF - 01/02/2016 2:44 PM EDT Patient understood discharge instructions. Informational handouts given to patient on Groin after care and restrictions, and new medicine, Eliquis, Lipitor and Metoprolol including side effects. * Lulu Sun MSW - 01/02/2016 12:29 PM EDT 01/01: SW update. Referral sent to [facility] for SN and PT. Awaiting response. LP transport,hopeful for transport around 3:00-3:30p. Discussed with RN and Alissa at [facility]. Alissa advised PT notes are similar to how pt was prior to coming into hospital and can accommodate [facility] for PT and SN. All in agreement. [...] Presentation Patient seated edge of bed Observation Wood Technologist;Bed Alarm Transfers Sit to Stand Contact guard [...] skilled PT Time In / Time Out [id number] IP PT Treatment Minutes 18 * Ernie Pizano MD - 01/02/2016 11:28 AM EDT [facility] Hospitalist Subjective: HPI: Received message from SS that pt and her son desire for the pt to return to the [facility]---PT rec rehab/SNF and pt seems [...] EKG 12 LEAD Impression Stationary ECG Study [facility] [place] Interpretive Statements SINUS RHYTHM Conversion to sinus [...] oral Lopressor ? Coronary artery disease involving togiak coronary artery of togiak heart without angina pectoris---s/p angio with LAD [...] is [facility]. Referral sent. Orderrequested for HHC for SN and PT from MD. Also requested DC orders if OK for dc. Will need LP transport. SW following. * Laila Terrazas MD - 01/02/2016 8:15 AM EDT CARDIOLOGY Daily Progress Note ? Patient personally seen and examined. ? Attending Physician: Mayo Omalley, Admitting Physician: Mayo Omalley, DO ? Admission [...] [id number] [phone] Resp: 16 16 16 16 Temp: 98.4 ??F (36.9 ??C) [...] fraction is in the normal range. ?? Kafjwlrq-bm-pwowlt tricuspid regurgitation. RVSP estimated to be: 32 [...] CTI flutter on 12/31/2015 Remains In SR [id number] 5 ? HX CVA ? HTN ? [...] with chest pain. Pt initially presented to [facility] ED 12/25 with chest pain/tightness radiating to jaw, SOB. Found to have A-flutter- was seen by Cardiology and EP. Transferred to [facility] for LHC and ablation. Had cardiac [...] Presentation Patient resting in bed Observation Clay Catheter;Wood Technologist Bed Mobility Supine to Sit Mod assist [...] skilled PT Time In / Time Out 5755-4250 IP PT Treatment Minutes 14 * Lia Hendricks RN - 01/01/2016 3:28 PM EDT Patient resting [...] 12 LEAD Impression Stationary ECG Study [facility] Interpretive Statements SINUS RHYTHM Conversion to sinus [...] by physician to follow. Stationary ECG Study [facility] Interpretive Statements SINUS RHYTHM Conversion to sinus [...] oral Lopressor ? Coronary artery disease involving togiak coronary artery of togiak heart without angina pectoris---s/p angio with LAD [...] atrial flutter ??? 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 Ulcer of esophagus without bleeding ??? JACK (acute kidney injury) (HCC) ??? Chest pain ??? Hemiparesis affecting left side as late effect of stroke (HCC) ??? Essential hypertension ??? History of CVA (cerebrovascular accident) Plan: 1. Atrial flutter- likely CTI dependent ?? --> S/P CTI flutter ablation 12/31/15 --> [id number] score: 6. She is on Eliquis. AFL [...] fraction is in the normal range. ?? Avdvfahb-lv-mthtpq tricuspid regurgitation. RVSP estimated to be: 32 [...] of CTI flutter on 12/31/2015 In SR [id number] 5 ? HX CVA ? HTN ? [...] EKG 12 LEAD Impression Stationary ECG Study [place] Interpretive Statements SINUS RHYTHM WITH FREQUENT ECTOPIC [...] per Card ? Coronary artery disease involving togiak coronary artery of togiak heart without angina pectoris---s/p angio with LAD [...] MD 12/31/2015 10:51 AM * Stewart Robert [facility] - 12/31/2015 7:57 AM EDT S: Faby Palm is a(n) 65 y.o. female with diagnosis of A-FIB (CHADS2=5). Allergies: Compazine [prochlorperazine edisylate]; Linndale; and Talwin [pentazocine lactate] Pharmacy managing heparin therapy. Bleeding signs/symptoms noted: none. O: Most Recent Labs: Recent Labs 12/28/15214912/29/15 0612/30/15 0620 WBC 7.5 7.2 8.6 HGB 12.5 [...] 0.7 unit/mL). Thanks, Stewart Robert PharmD * Laila Terrazas MD - 12/31/2015 [...] fraction is in the normal range. ?? Acxszrfs-uq-nhvzie tricuspid regurgitation. RVSP estimated to be: 32 [...] Rate controlled. TSH normal On heparin infusion [id number] 5 ? HX CVA ? HTN ? JACK Cr 1.66 ? Hx of schizophrenia ? Plan: Ablation later today per EP. Hemodynamically stable. ?? Laila Terrazas Cardiology * Patricia Mathew RN - 12/31/2015 1:53 AM EDT Vital signs stable. cardizem drip infusing as ordered. Monitor remains atrial flutter. Right groin folds excoriated no bleeding or hematoma at cath site. Up to bathroom with assistance and tolerated fair. Bed alarm in place for safety. Offers no complaints. * Charity Butler RN - 12/30/2015 3:22 PM EDT 12/30/15 1518 Assessment Complete Actual Discharge Plan 12/29 CC: Called and spoke with nurse at [facility] regarding patient returning there when medically [...] ablation tomm. ??? Coronary artery disease involving togiak coronary artery of togiak heart without angina pectoris---s/p angio yest with [...] running low Ablation planned for tomm Ernie Pizano, MD 12/30/2015 11:46 AM * EriAdriaOnurYael hernández, PT - 12/30/2015 11:34 AM EDT 12/30/15 [...] with chest pain. Pt initially presented to [facility] ED 12/25 with chest pain/tightness radiating to jaw, SOB. Found to have A-flutter- was seen by Cardiology and EP. Transferred to [facility] for LHC and ablation. Had cardiac [...] Home Living/Prior Function Type of Home Facility ([facility]) Home Equipment 2 wheel walker Level of Assistance Ambulatory in home;Needs assistance with ADLs;Needs assistance with homemaking Lives With (has 2 roommates per pt) Additional Comments Pt reports she gets around independently with walker, only needs assist for bathing. States facility provides meals and does housework. Pt reports several falls recently. Observation Presentation Patient resting in bed Observation PICC line;Wood Technologist;Bed Alarm UE Assessment Additional Comments general weakness [...] skilled PT Time In / Time Out 3182-4368 IP PT Evaluation Minutes 15 IP PT [...] with chest pain. Pt initially presented to [facility] ED 12/25 with chest pain/tightness radiating to jaw, SOB. Found to have A-flutter- was seen by Cardiology and EP. Transferred to [facility] for LHC and ablation. Had cardiac [...] Home Living/Prior Function Type of Home Facility ([facility]) Home Equipment 2 wheel walker Level of Assistance Ambulatory in home;Needs assistance with ADLs;Needs assistance with homemaking Lives With (has 2 roommates per pt) Additional Comments Pt reports she gets around independently with walker, only needs assist for bathing. States facility provides meals and does housework. Pt reports several falls recently. Observation Presentation Patient resting in bed Observation PICC line;Wood Technologist;Bed Alarm UE Assessment Additional Comments general weakness [...] skilled PT Time In / Time Out 7097-5047 IP PT Evaluation Minutes 15 IP PT [...] flutter (HCC) ??? 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 Esophageal ulcer [...] fraction is in the normal range. ?? Dwcplume-mp-zqqsmv tricuspid regurgitation. RVSP estimated to be: 32 [...] Rate controlled. TSH normal On heparin infusion [id number] 5 ?? HX CVA ? HTN ?? [...] tofind out. Will continue to monitor. * Yesica Stewart, [facility] - 12/30/2015 8:20 AM EDT S: Faby Palm is a(n) 65 y.o. female with diagnosis of A-FIB (CHADS2=5). Allergies: Compazine [prochlorperazine edisylate]; Linndale; and Talwin [pentazocine lactate] Pharmacy managing heparin therapy. Bleeding signs/symptoms noted: none. O: Most Recent Labs: Recent Labs 12/28/15214912/29/15 0612/30/15 0620 WBC 7.5 7.2 8.6 HGB 12.5 12.3 11.9* HCT 36.9 36.4 36.0 PLT 142* 145 160 Platelets are being monitored at least every 48 hours while the patient is receiving unfractionatedheparin therapy. Recent Labs 12/26/15 1907 12/28/15 0651 12/28/15 21512/29/15 0458 12/30/15 0710 INR 1.02 -- 1.08 [...] states that she does not like this [facility], stating she likes the other [facility] better . Asked patient why, patient states [...] concerns. Be Brown MD 12/29/2015 6:44 PM [facility] Gastroenterology * Araseli Mcguire, RN [...] 2010 left side affected, RLS * Araseli Mcguire, RN - 12/29/2015 1:03 PM EDT ACT [...] Will continue to monitor. * Pablo Montague [facility] - 12/29/2015 10:19 AM EDT S: Faby Palm is a(n) 65 y.o. female with diagnosis of A-FIB(CHADS2=5) . Allergies: Compazine [prochlorperazine edisylate]; Linndale; and Talwin [pentazocine lactate] Pharmacy managing heparin [...] chart. CC received consult patient is from [facility] .Per chart, patient agreeable to angiogram today, transferred to PICU forrecovery. Per chart, patient [facility], uses walker for ambulation.CC requesting PT eval when medcailly stable to asst with safe DC plan. CC will cont to follow. 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 * Melisa Menon RN - 12/29/2015 2:04 AM EDT Patient transferred from [facility] for angio in the AM and possible ablation later in the week. Alert and oriented x3, standby assist to bathroom with walker. Pt refused skin assessment. Oriented to room, call light. VSS, A flutter on monitor. * Faby Schuler, [facility] - 12/28/2015 11:01 PM EDT Pharmacy Note - heparin S: Faby Palm is a 65 y.o. female with recent chest pain, A flutter, angio scheduled for tomorrow, transferred from [facility] today. Allergies: Compazine [prochlorperazine edisylate]; Linndale; and Talwin[pentazocine lactate] Pharmacy managing heparin therapy. [...] - 0.7 unit/mL). Thank you, Faby Schuler [facility] documented in this encounter H&P Notes * Mita Tee MD - 12/31/2015 4:29 PM EDT PHYSICIAN IMMEDIATE PRE-PROCEDURE UPDATE H&P and SEDATION ASSESSMENT Risks, benefits, potential complications and alternatives have been discussed with patient and/or patient's legal authorized student services representative. HISTORY AND PHYSICAL Inpatient: H&P [...] uvula visible) Cath PCI Bleeding Risk Score Domestic Travel Consultant; <=25 mild, 26-65 mod, >65 high: 65 Height: 5' 8.5 (174 cm) Weight: 230 lb 3.2 oz (104.4 kg) BMI (Calculated): 34.9 Comment: Allergies Allergen Reactions ??? Compazine [Prochlorperazine Edisylate] ??? Linndale ??? Talwin [Pentazocine Lactate] Source Note - Mita Tee MD - 12/27/2015 5:36 PM EDT ADMISSION: 12/27/2015 PATIENT: Faby Palm [id number] PCP: Alessandra Trevino August, I would like [...] Be Brown MD; Location: [facility] ENDOSCOPY; Service: Endoscopy Allergy Allergies Allergen Reactions ??? Compazine [Prochlorperazine Edisylate] ??? Linndale ??? Talwin [Pentazocine Lactate] Family History Family [...] most recent cardiovascular imaging studies availabe in [facility] EMR were reviewed at time of [...] for rate control --> please transfer to [facility] over weekend/Wednesday under hospitalist service for planned procedure on Wednesday 2. CVA in the past --> patient reports that this was related to hypertensive emergency * Mayo Omalley DO - 12/29/2015 7:30 AM EDT [facility] History and Physical Name: Faby Palm ADDRESS: [address] [place] [address] : 1950 AGE: 65 y.o. Admitting Physician: Mayo Omalley DO Date of Admit: 12/28/2015 Chief Complaint: aflutter History of Present Illness:65 yo WF admitted for evaluation of chest pain and palpitations, she wasfound the have A flutter 2:1. Placed on IV heparin and BB, seen by cardiology and EP. She had mild JACK on CKD with improved with IVF. Transfer from [facility] for ablation and C. Prescriptions Prior [...] Allergen Reactions ??? Compazine [Prochlorperazine Edisylate] ??? Linndale ??? Talwin [Pentazocine Lactate] Past Medical History [...] of Onset ??? Cancer Mother larnyx cancer Review of Systems: The listed systems [...] EKG 12 LEAD Impression Stationary ECG Study [place] Interpretive Statements SINUS RHYTHM WITH FREQUENT ECTOPIC [...] [place] MD Assessment/Plan: CP -resolved -cardiology following -C today Aflutter Hx of CVA -CTI dependent -need NOAC for 4 weeks post flutter ablation -EP following -ablation planned for wednesday -BB -heparin -CHADs2-vasc= 5 HTN -stable JACK -BMP daily Tono Omalley DO [facility] Hospitalist 12/29/2015 7:30 AM documented in this encounter Miscellaneous Notes * Plan of Care - Hafsa Carrion, ROLF - 12/30/2015 1:22 AM EDT Problem: Safety: [...] CHART FOR CHEST PAIN PT D/C FROM [facility] FOR BE ADMITTED AT [facility] FOR CARDIAC PROCEDURE MD NOTE 12/28: Chief Complaint: aflutter History of Present Illness:65 yo WF admitted for evaluation of chest pain and palpitations, she wasfound the have A flutter 2:1. Placed on IV heparin and BB, seen by cardiology and EP. She had mild JACK on CKD with improved with IVF. Transfer from [facility] for ablation and LHC. Cardiac cath [...] + POC Routine 12/29/2015 8:41 AM EDT BAKERY DEMONSTRATOR HEMODYNAMIC WAVEFORMS Routine 12/29/2015 8:28 AM EDT [...] Meter POC 126(H) 70 - 100 mg/dL [facility] POINT OF CARE LABORATORY Blood specimen (specimen) 01/02/2016 11:55 AM EDT 01/02/2016 11:55 AM EDT Mayo Omalley DO POINT OF CARE TEST ORDER DEBBIE Final Result Performing Organization Address [facility] Co de Phone Number [facility] [address] [facility] [place] [address] * (ABNORMAL) GLUCOSE METER POC (01/02/2016 8:15 AM EDT) [facility] Signature Glucose Meter POC 66(L) 70 - 100 mg/dL [facility]INT [facility] Blood specimen (specimen) 01/02/2016 8:15 AM EDT 01/02/2016 8:15 AM EDT Mayo Omalley POINT OF CARE TEST ORDER DEBBIE Final Result Performing Organization Address [facility] Co de Phone Number [facility] [address] [facility] [place] [address] * BASIC METABOLIC PANEL (01/02/2016 6:05 AM EDT) Sodium 143 136 - 145 mmol/L [facility] Potassium 4.0 3.5 - 5.0 mmol/L [facility] Chloride 104 98 - 107 mmol/L [facility] Total CO2 29 22 - 29 mmol/L [facility] Anion Gap 10 7 - 16 mmol/L [facility] Calcium 9.2 8.8 - 10.2 mg/dL [facility] Glucose Lvl 84 82 - 100 mg/dL [facility] BUN 17 8 - 23 mg/dL [facility] Creatinine 1.25 0.51 - 1.30 mg/dL [facility] GFR Afr Am [facility] GFR Non Afr Am 43 [facility] Blood specimen (specimen) 01/02/2016 6:05 AM EDT 01/02/2016 7:32 AM EDT us Ernie Pizano MD CHEMISTRY ORDERABLES Edited R esult - Final [facility] [address] [place] [address] * GLUCOSE METER POC (01/01/2016 11:07 PM EDT) Glucose Meter POC 92 70 - 100 mg/dL [facility]ARE [facility] Blood specimen (specimen) 01/01/2016 11:07 PM EDT 01/01/2016 11:07 PM EDT us Mayo Omalley DO POINT OF CARE TEST ORDER DEBBIE Final Result Performing Organization Address [facility] de Phone Number [facility] [address] [place] [address] * SCANNED RHYTHM STRIPS (01/01/2016 9:53 PM EDT) Anatomical Region Laterality Modality Other 01/01/2016 9:53 PM EDT us Unknown Unknown IMG ECG ORDERABLES Final Result * GLUCOSE METER POC (01/01/2016 6:27 PM EDT) Glucose Meter POC 83 70 - 100 mg/dL [facility] Blood specimen (specimen) 01/01/2016 6:27 PM EDT 01/01/2016 6:27 PM EDT us Mayo Omalley DO POINT OF CARE TEST ORDER DEBBIE Final Result Performing Organization Address City/[facility] de Phone Number [facility]ARE [facility] [address] [facility] [place] [address] * (ABNORMAL) GLUCOSE METER POC (01/01/2016 12:52 PM EDT) Glucose Meter POC 137(H) 70 - 100 mg/dL [facility]ARE [facility] Blood specimen (specimen) 01/01/2016 12:52 PM EDT 01/01/2016 12:52 PM EDT Mayo Omalley DO POINT OF CARE TEST ORDER DEBBIE Final Result Performing Organization Address [facility] Phone Number [facility] [address] [facility] [place] [address] * SCANNED RHYTHM STRIPS (01/01/2016 9:31 AM EDT) Anatomical Region Laterality Modality Other 01/01/2016 9:31 AM EDT us Unknown Unknown IMG ECG ORDERABLES Final Result * (ABNORMAL) GLUCOSE METER POC (01/01/2016 8:43 AM EDT) Glucose Meter POC 120(H) 70 - 100 mg/dL [facility] Blood specimen (specimen) 01/01/2016 8:43 AM EDT 01/01/2016 8:43 AM EDT us Mayo Omalley DO POINT OF CARE TEST ORDER DEBBIE Final Result Performing Organization Address [facility] de Phone Number [facility] [address] [facility] [place] [address] * SCANNED RHYTHM STRIPS (01/01/2016 6:16 AM EDT) Anatomical Region Laterality Modality Other 01/01/2016 6:16 AM EDT us Unknown Unknown IMG ECG ORDERABLES Final Result * (ABNORMAL) CBC (01/01/2016 6:10 AM EDT) WBC 7.4 4.0 - 11.0 x10(3)/mcL [facility] RBC 3.59(L) 3.80 - 5.10 x10(6)/mcL [facility] Hgb 10.8(L) 12.0 - 15.6 gm/dL [facility] Hct 32.4(L) 35.7 - 45.9 % [facility] MCV 90.2 82.5 - 99.8 fL [facility] MCH 30.1 27.0 - 34.3 pg [facility] MCHC 33.4 32.1 - 35.3 gm/dL [facility] RDW 14.3 11.5 - 15.0 % [facility] Platelet 126(L) 144 - 423 x10(3)/mcL [facility] MPV 9.3 6.8 - 10.8 fL [facility] Blood specimen (specimen) UPPER LIMB STRUCTURE / Unknown 01/01/2016 6:10 AM EDT 01/01/2016 6:13 AM EDT Narrative [facility] - 01/01/2016 6:23 AM EDT Hemogram every 2nd day while on heparin us Kaushik Perea MD HEMATOLOGY ORDERABLES Final Resu lt [facility] [address] [place] [address] * (ABNORMAL) BASIC METABOLIC PANEL (01/01/2016 6:10 AM EDT) Pathologist [facility] Sodium 140 136 - 145 mmol/L [facility] Potassium 4.3 3.5 - 5.0 mmol/L [facility] Chloride 104 98 - 107 mmol/L [facility] Total CO2 27 22 - 29 mmol/L [facility] Anion Gap 9 7 - 16 mmol/L [facility] Calcium 8.7(L) 8.8 - 10.2 mg/dL [facility] [facility]ENTER Glucose Lvl 116(H) 82 - 100 mg/dL [facility] BUN 16 8 - 23 mg/dL [facility] Creatinine 1.27 0.51 - 1.30 mg/dL [facility] GFR Afr Am 51 [facility] OOD LABORATORY GFR Non Afr Am 42 [facility] Blood specimen (specimen) UPPER LIMB STRUCTURE / Unknown 01/01/2016 6:10 AM EDT 01/01/2016 6:13 AM EDT us Kaushik Perea MD CHEMISTRY ORDERABLES Edited Resu lt - Final [facility] 1 Medical [facility] [place] [address] * (ABNORMAL) GLUCOSE METER POC (12/31/2015 8:17 PM EDT) Glucose Meter POC 115(H) 70 - 100 mg/dL [facility] Blood specimen (specimen) 12/31/2015 8:17 PM EDT 12/31/2015 8:17 PM EDT Mayo Omalley DO POINT OF CARE TEST ORDER DEBBIE Final Result Performing Organization Address [facility]/ZIP Co de Phone Number [facility] 1 [facility] [place] [address] * GLUCOSE METER POC (12/31/2015 5:32 PM EDT) Glucose Meter POC 73 70 - 100 mg/dL [facility] POINT [facility] Blood specimen (specimen) 12/31/2015 5:32 PM EDT 12/31/2015 5:32 PM EDT Mayo Omalley DO POINT OF CARE TEST ORDER DEBBIE Final Result Performing Organization Address City/[facility]/ZIP Co de Phone Number [facility] 1 [facility] [place] [address] * GLUCOSE METER POC (12/31/2015 4:50 PM EDT) Glucose Meter POC 86 70 - 100 mg/dL [facility] Blood specimen (specimen) 12/31/2015 4:50 PM EDT 12/31/2015 4:50 PM EDT us Mayo Omalley DO POINT OF CARE TEST ORDER DEBBIE Final Result [facility] 1 Medical [facility] [place] [address] * EK EKG 12 LEAD (12/31/2015 4:47 PM EDT) Anatomical Region Laterality Modality Electrocardiogra phy 12/31/2015 4:56 PM EDT Impressions 12/31/2015 6:13 PM EDT ? Stationary ECG Study ?[facility] [place] ? Interpretive Statements ? SINUS RHYTHM Conversion to sinus rhythm from flutter LOW QRS VOLTAGE IN PRECORDIAL LEADS ANTEROSEPTAL MYOCARDIAL INFARCTION, PROBABLY OLD Electronically Signed On 12-31-2015 18:13:01 EDT by Ashwin Hoffmann MD Narrative Procedure Note Ashwin oHffmann MD - 12/31/2015 IMPRESSION Stationary ECG Study [place] Interpretive Statements SINUS RHYTHM Conversion to sinus [...] There were no immediate complications Elida Martin RADIO DISPATCHER ELECTROPHYSIOLOGY ORDER DEBBIE Final Result Performing Organization Address [facility] Co de Phone Number [facility] * GLUCOSE METER POC (12/31/2015 2:03 PM EDT) Glucose Meter POC 72 70 - 100 mg/dL [facility] Blood specimen (specimen) 12/31/2015 2:03 PM EDT 12/31/2015 2:03 PM EDT Mayo Omalley DO POINT OF CARE TEST ORDER DEBBIE Final Result Performing Organization Address [facility] de Phone Number [facility]ARE [facility] 1 [facility] [place] [address] * GLUCOSE METER POC (12/31/2015 12:37 PM EDT) Glucose Meter POC 89 70 - 100 mg/dL [facility] Blood specimen (specimen) 12/31/2015 12:37 PM EDT 12/31/2015 12:37 PM EDT Mayo Omalley DO POINT OF CARE TEST ORDER DEBBIE Final Result Performing Organization Address [facility] de Phone Number [facility] 1 [facility] [place] [address] * SCANNED RHYTHM STRIPS (12/31/2015 8:15 AM EDT) Anatomical Region Laterality Modality Other 12/31/2015 8:15 AM EDT us Unknown Unknown IMG ECG ORDERABLES Final Result * (ABNORMAL) GLUCOSE METER POC (12/31/2015 7:20 AM EDT) Glucose Meter POC 108(H) 70 - 100 mg/dL [facility] Blood specimen (specimen) 12/31/2015 7:20 AM EDT 12/31/2015 7:20 AM EDT us Mayo Omalley DO POINT OF CARE TEST ORDER DEBBIE Final Result [facility] 1 Medical [facility] [place] [address] * (ABNORMAL) CBC (12/31/2015 5:12 AM EDT) WBC 7.6 4.0 - 11.0 x10(3)/mcL [facility] RBC 3.89 3.80 - 5.10 x10(6)/mcL [facility] Hgb 11.6(L) 12.0 - 15.6 gm/dL [facility] Hct 35.4(L) 35.7 - 45.9 % [facility] MCV 91.1 82.5 - 99.8 fL [facility] MCH 29.8 27.0 - 34.3 pg [facility] MCHC 32.7 32.1 - 35.3 gm/dL [facility] RDW 14.3 11.5 - 15.0 % [facility] Platelet 145 144 - 423 x10(3)/mcL [facility] MPV 10.8 6.8 - 10.8 fL [facility] Blood specimen (specimen) UPPER LIMB STRUCTURE / Unknown 12/31/2015 5:12 AM EDT 12/31/2015 9:44 AM EDT Narrative [facility] - 12/31/2015 10:21 AM EDT Hemogram every 2nd day while on heparin us Ernie Pizano MD HEMATOLOGY ORDERABLES Final R esult [facility] [address] [place] [address] * HEPARIN ANTI-XA, UNF (12/31/2015 5:12 AM EDT) Pathologist [facility] Heparin Level UNF 0.35 0.30 - 0.70 IU/mL [facility] Comment:The therapeutic rang e for heparinized patients monitored by the Heparin Lvl UF is 0.30-0.70 IU/mL. Blood specimen (specimen) 12/31/2015 5:12 AM EDT 12/31/2015 7:30 AM EDT Narrative [facility] - 12/31/2015 7:41 AM EDT Heparin anti-Xa unfractionated level every day while on heparin us Campbell Huston MD HEMATOLOGY ORDERABLES Final Resu lt Performing Organization Address [facility] [place] [address] * (ABNORMAL) BASIC METABOLIC PANEL (12/31/2015 5:12 AM EDT) [facility] Sodium 142 136 - 145 mmol/L [facility] Potassium 4.0 3.5 - 5.0 mmol/L [facility] Chloride 102 98 - 107 mmol/L [facility] Total CO2 25 22 - 29 mmol/L [facility] Anion Gap 15 7 - 16 mmol/L [facility] Calcium 8.9 8.8 - 10.2 mg/dL [facility] Glucose Lvl 113(H) 82 - 100 mg/dL [facility] BUN 20 8 - 23 mg/dL [facility] Creatinine 1.55(H) 0.51 - 1.30 mg/dL [facility] GFR Non Afr Am [address] [facility] Blood specimen (specimen) 12/31/2015 5:12 AM EDT 12/31/2015 7:31 AM EDT us Ernie Pizano MD CHEMISTRY ORDERABLES Edited R esult - Final Performing Organization Address [facility] de Phone Number [facility] 1 [facility] [place] [address] * SCANNED RHYTHM STRIPS (12/31/2015 12:34 AM EDT) Anatomical Region Laterality Modality Other 12/31/2015 12:3 4 AM EDT us Unknown Unknown IMG ECG ORDERABLES Final Result * (ABNORMAL) GLUCOSE METER POC (12/30/2015 8:14 PM EDT) Glucose Meter POC 116(H) 70 - 100 mg/dL [facility] Blood specimen (specimen) 12/30/2015 8:14 PM EDT 12/30/2015 8:14 PM EDT Mayo Omalley DO POINT OF CARE TEST ORDER DEBBIE Final Result Performing Organization Address [facility] Phone Number [facility] [address] [place] [address] [address] [place] [address] * GLUCOSE METER POC (12/30/2015 5:06 PM EDT) Glucose Meter POC 75 70 - 100 mg/dL [facility] Blood specimen (specimen) 12/30/2015 5:06 PM EDT 12/30/2015 5:06 PM EDT Mayo Omalley DO POINT OF CARE TEST ORDER DEBBIE Final Result Performing Organization Address [facility] Phone Number [address] [place] [address] * SCANNED RHYTHM STRIPS (12/30/2015 4:11 PM EDT) Anatomical Region Laterality Modality Other 12/30/2015 4:11 PM EDT us Unknown Unknown IMG ECG ORDERABLES Final Result * (ABNORMAL) GLUCOSE METER POC (12/30/2015 2:15 PM EDT) Glucose Meter POC 157(H) 70 - 100 mg/dL [facility] Blood specimen (specimen) 12/30/2015 2:15 PM EDT 12/30/2015 2:15 PM EDT Mayo Omalley DO POINT OF CARE TEST ORDER DEBBIE Final Result Performing Organization Address [facility] de Phone Number [facility] 1 [facility] [address] [place] [address] * (ABNORMAL) GLUCOSE METER POC (12/30/2015 8:53 AM EDT) Glucose Meter POC 108(H) 70 - 100 mg/dL [facility] Blood specimen (specimen) 12/30/2015 8:53 AM EDT 12/30/2015 8:53 AM EDT Mayo Omalley DO POINT OF CARE TEST ORDER DEBBIE Final Result Performing Organization Address [facility] Phone Number [facility] 1 [facility] [address] [place] [address] * HEPARIN ANTI-XA, UNF (12/30/2015 7:10 AM EDT) Pathologist [facility] Heparin Level UNF 0.30 0.30 - 0.70 IU/mL [facility] Comment:The therapeutic rang e for heparinized patients monitored by the Heparin Lvl UF is 0.30-0.70 IU/mL. Blood specimen (specimen) 12/30/2015 7:10 AM EDT 12/30/2015 7:41 AM EDT Narrative [facility] - 12/30/2015 8:02 AM EDT Heparin anti-Xa unfractionated level every day while on heparin Campbell Huston MD HEMATOLOGY ORDERABLES Final Resu lt Performing Organization Address [facility] Co de Phone Number [facility] 1 [place] [address] * DIFFERENTIAL (12/30/2015 6:20 AM EDT) Neut Percent 58.5 % [facility] Lymph Percent 29.1 % [facility] [place] Percent 7.7 % [facility] Eos Percent 4.1 % [facility] Baso Percent 0.6 % [facility] Neut# 5.0 1.8 - 7.7 x10(3)/mcL [facility] Lymph# 2.5 0.6 - 4.8 x10(3)/[facility] LAB[facility] [place]# 0.7 0.0 - 1.3 x10(3)/[facility] LAB[facility] Eos# 0.4 0.0 - 0.5 x10(3)/[facility] Baso# 0.1 0.0 - 0.2 x10(3)/[facility] Blood specimen (specimen) 12/30/2015 6:20 AM EDT 12/30/2015 6:25 AM EDT Campbell Huston MD HEMATOLOGY ORDERABLES Final Resu lt Performing Organization Address City/State/[facility] Co de Phone Number [facility] [address] [place] [address] * (ABNORMAL) BASIC METABOLIC PANEL (12/30/2015 6:20 AM EDT) Sodium 141 136 - 145 mmol/L [facility] Potassium 4.0 3.5 - 5.0 mmol/L [facility] Chloride 101 98 - 107 mmol/L [facility] Total CO2 28 22 - 29 mmol/L [facility] Anion Gap 12 7 - 16 mmol/L [facility] Calcium 8.9 8.8 - 10.2 mg/dL [facility] Glucose Lvl 126(H) 82 - 100 mg/dL [facility] BUN 19 8 - 23 mg/dL [facility] Creatinine 1.66(H) 0.51 - 1.30 mg/dL [facility] GFR Afr Am 38 [facility] OOD LABORATORY GFR Non Afr Am 31 [facility] Blood specimen (specimen) UPPER LIMB STRUCTURE / Unknown 12/30/2015 6:20 AM EDT 12/30/2015 6:25 AM EDT us Campbell Huston MD CHEMISTRY ORDERABLES Edited Resu lt - Final Performing Organization Address City/[facility] Co de Phone Number [facility] 1 [place] [address] * MAGNESIUM LEVEL (12/30/2015 6:20 AM EDT) Magnesium 1.9 1.6 - 2.4 mg/dL [facility] Blood specimen (specimen) UPPER LIMB STRUCTURE / Unknown 12/30/2015 6:20 AM EDT 12/30/2015 6:25 AM EDT us Campbell Huston MD CHEMISTRY ORDERABLES Final Resul t Performing Organization Address [facility] de Phone Number [facility] [address] [place] [address] * (ABNORMAL) CBC WITH AUTO DIFF (12/30/2015 6:20 AM EDT) WBC 8.6 4.0 - 11.0 x10(3)/mcL [facility] RBC 4.07 3.80 - 5.10 x10(6)/mcL [facility] Hgb 11.9(L) 12.0 - 15.6 gm/dL [facility] Hct 36.0 35.7 - 45.9 % [facility] MCV 88.6 82.5 - 99.8 fL [facility] MCH 29.2 27.0 - 34.3 pg [facility] MCHC 32.9 32.1 - 35.3 gm/dL [facility] RDW 14.5 11.5 - 15.0 % [facility] Platelet 160 144 - 423 x10(3)/mcL [facility] MPV 9.6 6.8 - 10.8 fL [facility] Blood specimen (specimen) UPPER LIMB STRUCTURE / Unknown 12/30/2015 6:20 AM EDT 12/30/2015 6:25 AM EDT us Campbell Huston MD HEMATOLOGY ORDERABLES Final Resu lt Performing Organization Address [facility] de Phone Number [facility] 1 [place] [address] * SCANNED RHYTHM STRIPS (12/29/2015 11:56 PM EDT) Anatomical Region Laterality Modality Other 12/29/2015 11:5 6 PM EDT Unknown Unknown IMG ECG ORDERABLES Final Result * GLUCOSE METER POC (12/29/2015 8:07 PM EDT) Glucose Meter POC 97 70 - 100 mg/dL [facility] Blood specimen (specimen) 12/29/2015 8:07 PM EDT 12/29/2015 8:07 PM EDT us Mayo Omalley DO POINT OF CARE TEST ORDER DEBBIE Final Result Performing Organization Address [facility] Phone Number [facility] 1 [facility] [place] [address] * (ABNORMAL) GLUCOSE METER POC (12/29/2015 3:42 PM EDT) Glucose Meter POC 168(H) 70 - 100 mg/dL [facility] Blood specimen (specimen) 12/29/2015 3:42 PM EDT 12/29/2015 3:42 PM EDT us Mayo Omalley DO POINT OF CARE TEST ORDER DEBBIE Final Result Performing Organization Address [facility] de Phone Number [facility] 1 [facility] [place] [address] * (ABNORMAL) GLUCOSE METER POC (12/29/2015 11:51 AM EDT) Glucose Meter POC 113(H) 70 - 100 mg/dL [facility] Blood specimen (specimen) 12/29/2015 11:51 AM EDT 12/29/2015 11:51 AM EDT us Mayo Omalley DO POINT OF CARE TEST ORDER DEBBIE Final Result Performing Organization Address [facility] Co de Phone Number [facility]ARE [facility] 1 [facility] [place] [address] * ACTIVATED CLOTTING TIME POC (12/29/2015 10:46 AM EDT) ACT -LR 151 89 - 169 second(s) [facility] Blood specimen (specimen) 12/29/2015 10:46 AM EDT 12/29/2015 10:46 AM EDT us Mayo Omalley DO POINT OF CARE TEST ORDER DEBBIE Final Result Performing Organization Address [facility] Co de Phone Number [facility] 1 [facility] [place] [address] * (ABNORMAL) ACTIVATED CLOTTING TIME POC (12/29/2015 9:33 AM EDT) ACT -LR 178(H) 89 - 169 second(s) [facility] Blood specimen (specimen) 12/29/2015 9:33 AM EDT 12/29/2015 9:33 AM EDT us Kaushik Perea MD POINT OF CARE TEST ORDERABLES Fi nal Result Performing Organization Address [facility] de Phone Number [facility] 1 [facility] [place] [address] * INTRAVASCULAR DOPPLER VELOCITY (12/29/2015 9:07 AM [...] documented. Complication There were no immediate complications Mkie Winchester MD CARDIAC CATH ORDERABLES Final Result Performing Organization Address [facility] Co de Phone Number [facility] * CORONARY ANGIOGRAM (COR/LHC/LV GRAM, CARDIAC CATHETERIZATION), LEFT VENTRICULOGRAM, LEFT HEART CATH(12/29/2015 9:07 AM EDT) Pathologist [facility] Cath EF Estimated 50 % [facility] [...] ORDERABLES Final Re sult Performing Organization Address [facility] Co de Phone Number [facility] * ACTIVATED CLOTTING TIME POC (12/29/2015 8:41 AM EDT) Pathologist [facility] ACT -LR 154 89 - 169 second(s) [facility] Blood specimen (specimen) 12/29/2015 8:41 AM EDT 12/29/2015 8:41 AM EDT us Kaushik Perea MD POINT OF CARE TEST ORDERABLES Fi nal Result Performing Organization Address [facility] Co de Phone Number [facility]ARE [facility] 1 [facility] [place] [address] * BAKERY DEMONSTRATOR HEMODYNAMIC WAVEFORMS (12/29/2015 8:28 AM EDT) 12/29/2015 8:28 AM EDT us Kaushik Perea MD CARDIAC CATH ORDERABLES Final Re sult Performing Organization Address [facility] de Phone Number [facility] 1 [place] [address] * SCANNED RHYTHM STRIPS (12/29/2015 8:06 AM EDT) Anatomical Region Laterality Modality Other 12/29/2015 8:06 AM EDT us Unknown Unknown IMG ECG ORDERABLES Final Result * (ABNORMAL) GLUCOSE METER POC (12/29/2015 7:56 AM EDT) Glucose Meter POC 117(H) 70 - 100 mg/dL [facility] Blood specimen (specimen) 12/29/2015 7:56 AM EDT 12/29/2015 7:56 AM EDT us Kaushik Perea MD POINT OF CARE TEST ORDERABLES Fi nal Result Performing Organization Address [facility] de Phone Number [facility] [address] [place] [address] * DIFFERENTIAL (12/29/2015 6:20 AM EDT) Neut Percent 67.4 % [facility] Lymph Percent 20.8 % [facility] [place] Percent 6.8 % [facility] Eos Percent 4.3 % [facility] Baso Percent 0.7 % [facility] Neut# 4.9 1.8 - 7.7 x10(3)/[facility] LABORATORY Lymph# 1.5 0.6 - 4.8 x10(3)/[facility] LAB[facility]ATORY [place]# 0.5 0.0 - 1.3 x10(3)/[facility] LABORATORY Eos# 0.3 0.0 - 0.5 x10(3)/[facility] LABORATORY Baso# 0.1 0.0 - 0.2 x10(3)/[facility] LAB[facility] Blood specimen (specimen) 12/29/2015 6:20 AM EDT 12/29/2015 6:24 AM EDT us Campbell Huston MD HEMATOLOGY ORDERABLES Final Resu lt Performing Organization Address City/[facility] Co de Phone Number [facility] [address] [place] [address] * MAGNESIUM LEVEL (12/29/2015 6:20 AM EDT) Magnesium 1.8 1.6 - 2.4 mg/dL [facility] Blood specimen (specimen) UPPER LIMB STRUCTURE / Unknown 12/29/2015 6:20 AM EDT 12/29/2015 6:24 AM EDT us Campbell Huston MD CHEMISTRY ORDERABLES Final Resul t Performing Organization Address [facility] de Phone Number [facility] [address] [place] [address] * CBC WITH AUTO DIFF (12/29/2015 6:20 AM EDT) WBC 7.2 4.0 - 11.0 x10(3)/mcL [facility] RBC 4.11 3.80 - 5.10 x10(6)/mcL [facility] Hgb 12.3 12.0 - 15.6 gm/dL [facility] Hct 36.4 35.7 - 45.9 % [facility] MCV 88.6 82.5 - 99.8 fL [facility] MCH 30.0 27.0 - 34.3 pg [facility] MCHC 33.8 32.1 - 35.3 gm/dL [facility] RDW 13.6 11.5 - 15.0 % [facility] Platelet 145 144 - 423 x10(3)/mcL [facility] MPV 9.5 6.8 - 10.8 fL [facility] Blood specimen (specimen) UPPER LIMB STRUCTURE / Unknown 12/29/2015 6:20 AM EDT 12/29/2015 6:24 AM EDT us Campbell Huston MD HEMATOLOGY ORDERABLES Final Resu lt Performing Organization Address City/[facility] Co de Phone Number [facility] [address] [place] [address] * (ABNORMAL) BASIC METABOLIC PANEL (12/29/2015 6:20 AM EDT) Sodium 140 136 - 145 mmol/L [facility] Potassium 3.9 3.5 - 5.0 mmol/L [facility] Chloride 103 98 - 107 mmol/L [facility] Total CO2 26 22 - 29 mmol/L [facility] Anion Gap 11 7 - 16 mmol/L [facility] Calcium 9.1 8.8 - 10.2 mg/dL [facility] Glucose Lvl 136(H) 82 - 100 mg/dL [facility] BUN 15 8 - 23 mg/dL [facility] Creatinine 1.19 0.51 - 1.30 mg/dL [facility] GFR Afr Am 55 [facility] GFR Non Afr Am 46 [facility] Blood specimen (specimen) UPPER LIMB STRUCTURE / Unknown 12/29/2015 6:20 AM EDT 12/29/2015 6:24 AM EDT Campbell Huston MD CHEMISTRY ORDERABLES Edited Resu lt - Final Performing Organization Address City/[facility] Co de Phone Number [facility] [address] [place] [address] * HEPARIN ANTI-XA, UNF (12/29/2015 4:58 AM EDT) Heparin Level UNF 0.31 0.30 - 0.70 IU/mL [facility] Comment:The therapeutic rang e for heparinized patients monitored by the Heparin Lvl UF is 0.30-0.70 IU/mL. Blood specimen (specimen) 12/29/2015 4:58 AM EDT 12/29/2015 6:09 AM EDT Narrative [facility] - 12/29/2015 6:32 AM EDT Heparin anti-Xa unfractionated level every day while on heparin us Campbell Huston MD HEMATOLOGY [place] [address] * DIFFERENTIAL (12/28/2015 9:50 PM EDT) Neut Percent 61.4 % [facility] Lymph Percent 26.1 % [facility] [place] Percent 6.7 % [facility] Eos Percent 5.0 % [facility] Baso Percent 0.8 % [facility] Neut# 4.6 1.8 - 7.7 x10(3)/mcL [facility] Lymph# 2.0 0.6 - 4.8 x10(3)/[facility] [place]# 0.5 0.0 - 1.3 x10(3)/[facility] Eos# 0.4 0.0 - 0.5 x10(3)/[facility] Baso# 0.1 0.0 - 0.2 x10(3)/[facility] Blood specimen (specimen) 12/28/2015 9:50 PM EDT 12/28/2015 10:13 PM EDT us Kaushik Perea MD HEMATOLOGY ORDERABLES Final Resu lt Performing Organization Address [facility] [place] [address] * HEPARIN ANTI-XA, UNF (12/28/2015 9:50 PM EDT) Pathologist [facility] Heparin Level UNF 0.32 0.30 - 0.70 IU/mL [facility] Comment:The therapeutic rang e for heparinized patients monitored by the Heparin Lvl UF is 0.30-0.70 IU/mL. Blood specimen (specimen) 12/28/2015 9:50 PM EDT 12/28/2015 10:13 PM EDT us Kaushik Perea MD HEMATOLOGY ORDERABLES Final Resu lt Performing Organization Address City/[facility]/[place] [address] * PT / INR (12/28/2015 9:50 PM EDT) [facility] PT 11.9 10.1 - 12.9 second(s) [facility] INR 1.03 0.88 - 1.12 [facility] Comment: Level of Therapy ??Indications ??Target INR Range Standard Dose Treatment and prophylaxis of venous 2.0 - 3.0 ??thrombosis, pulmonary embolism ?High Dose High risk patients with mechanical ?2.5 - 3.5 ??heart valves Blood specimen (specimen) UPPER LIMB STRUCTURE / Unknown 12/28/2015 9:50 PM EDT 12/28/2015 10:13 PM EDT Narrative [facility] - 12/28/2015 10:26 PM EDT PT/INR only if patient is on Coumadin. ??Notify operations management professionals if INR is 1.8 or greater us Kaushik Perea MD HEMATOLOGY ORDERABLES Final Resu lt [facility] [address] [place] [address] * (ABNORMAL) CBC WITH AUTO DIFF (12/28/2015 9:50 PM EDT) [facility] WBC 7.5 4.0 - 11.0 x10(3)/mcL [facility] RBC 4.23 3.80 - 5.10 x10(6)/mcL [facility] Hgb 12.5 12.0 - 15.6 gm/dL [facility] Hct 36.9 35.7 - 45.9 % [facility] MCV 87.3 82.5 - 99.8 fL [facility] MCH 29.5 27.0 - 34.3 pg [facility] MCHC 33.8 32.1 - 35.3 gm/dL [facility] RDW 14.1 11.5 - 15.0 % [facility] Platelet 142(L) 144 - 423 x10(3)/mcL [facility] MPV 9.7 6.8 - 10.8 fL [facility] Blood specimen (specimen) UPPER LIMB STRUCTURE / Unknown 12/28/2015 9:50 PM EDT 12/28/2015 10:13 PM EDT Narrative [facility] - 12/28/2015 10:19 PM EDT Do not repeat if done in the past 10 days. us Kaushik Perea MD HEMATOLOGY ORDERABLES Final Resu lt Performing Organization Address [facility] Co de Phone Number [facility] [address] [place] [address] * (ABNORMAL) BASIC METABOLIC PANEL (12/28/2015 9:50 PM EDT) Sodium 141 136 - 145 mmol/L [facility] Potassium 4.1 3.5 - 5.0 mmol/L [facility] Chloride 104 98 - 107 mmol/L [facility] Total CO2 24 22 - 29 mmol/L [facility] Anion Gap 13 7 - 16 mmol/L [facility] Calcium 8.8 8.8 - 10.2 mg/dL [facility] Glucose Lvl 125(H) 82 - 100 mg/dL [facility] BUN 16 8 - 23 mg/dL [facility] Creatinine 1.15 0.51 - 1.30 mg/dL [facility] GFR Afr Am 57 [facility] OOD LAB[facility] GFR Non Afr Am 48 [facility] [place] [facility] Blood specimen (specimen) UPPER LIMB STRUCTURE / Unknown 12/28/2015 9:50 PM EDT 12/28/2015 10:13 PM EDT Narrative [facility] - 12/28/2015 10:43 PM EDT Notify operations management professionals if GFR <45, and/or potassium greater than or equal to 5.5 or less than or equal to 3.0. ??Do not repeat if done within past 10 days unless angiography study done within past 10 days. us Kaushik Perea MD CHEMISTRY ORDERABLES Edited Resu lt - Final Performing Organization Address [facility]/ZIP Co de Phone Number [facility] [address] [place] [address] * GLUCOSE METER POC (12/28/2015 8:14 PM EDT) [facility] Signature Glucose Meter POC 93 70 - 100 mg/dL [facility] Blood specimen (specimen) 12/28/2015 8:14 PM EDT 12/28/2015 8:14 PM EDT us Kaushik Perea MD POINT OF CARE TEST ORDERABLES Fi nal Result [facility] [address] [facility] [place] [address] documented in this encounter Visit Diagnoses Diagnosis Precordial pain Typical atrial flutter (HCC) Atrial [...] Given 01/01/2016 8:53 PM EDT 20 mg fentaNYL (SUBLIMAZE) 50 mcg/mL injection PRN, Starting on 12/28/16 at 0821, Until 12/29/15 at 0907, Intra-procedure(Cath) Given 12/29/2015 8:52 AM EDT 50 mcg ferrous sulfate tablet [...] 01/02/2016 8:30 AM EDT 10 mg heparin (porcine) injection PRN, Starting on 12/29/15 at 0852, Until Ambia 12/29/15 at 0907, Intra-procedure(Cath) Given 12/29/2015 8:52 AM EDT 5,000 Units HYDROcodone-acetaminophen (NORCO) 5-325 mg per tablet 1-2 [...] DAILY, First dose (after last modification) on Ambia 12/29/15 at 0900, Until Discontinued, Therapeutic interchange as [...] at 1856, Wound Care, Application site: folds midazolam (VERSED) injection PRN, Starting on Wed12/29/15 at 0821, Until Wed12/29/15 at 0907, Intra-procedure(Cath) Given 12/29/2015 8:21 AM EDT 1 mg ondansetron (ZOFRAN) 4 mg/2 mL injection [...] modification) on Wed12/28/15 at 2100, Until Discontinued, Do not crush or chew, Discharge/Readmit Given 01/02/2016 8:29 AM EDT 40 mg risperiDONE (RisperDAL) tablet 2 mg 2 mg, Oral, NIGHTLY, First dose (after last modification) on Wed12/28/15 at 2100, Until Discontinued, Discharge/Readmit Given 01/01/2016 8:53 PM EDT 2 mg roPINIRole (REQUIP) tablet 1.5 mg 1.5 mg, Oral, NIGHTLY, First dose (after last modification) on [facility] 12/28/15 at 2100, Until Discontinued, Discharge/Readmit Given [...] RN)2053 (Given - Provider: Anu Aguero, ROLF) 829 (Given - Provider: Lia Hendricks, ROLF) ARIPiprazole [...] 2052 (Given - Provider: Anu Aguero, ROLF) ferrous sulfate tablet 325 mg 325 mg, Oral, 2 TIMES DAILY WITH MEALS, First dose (after last modification) on Wed12/29/15 at 0800, Until Discontinued, Discharge/Readmit 0834 (Given - Provider: Anu Aguero RN)1808 (Given - Provider: Anu Aguero, ROLF) 08 (Given - Provider: Lia Hendricks RN)182 (Given - Provider: Lia Hendricks RN) 08 (Given - Provider: Lia Hendricks, ROLF) gabapentin (NEURONTIN) capsule 100 mg 100 mg, Oral, NIGHTLY, First dose (after last modification) on 12/28/15 at 2100, Until Discontinued, Discharge/Readmit 2205 (Given - Provider: Roslyn Hinkle RN) 2052 (Given - Provider: Anu Aguero, ROLF) glipiZIDE (GLUCOTROL) tablet 10 mg 10 mg, Oral, 2 TIMES DAILY WITH MEALS, First dose (after last modification) on Wed01/01/16 at 0800, Until Discontinued 08 (Given - Provider: Lia Hendricks RN)1821 (Given - Provider: Lia Hendricks, ROLF) 829 (Given - Provider: Lia Hendricks, ROLF) insulin aspart (NovoLOG) injection 1-10 Units 1-10 [...] least 3 hours. Waste Sort Code = [facility], Discharge/Readmit 0800 (Not Given - Provider: Anu [...] 0834 (Given - Provider: Anu Aguero RN) 08 [...] Aguero RN) 0830 (Given - Provider: Lia Hendricks, ROLF) metoprolol (LOPRESSOR) tablet 50 mg (CANCELED) 50 mg, Oral, 2 TIMES DAILY, First dose (after last modification) on 12/28/15 at 2100, Until Discontinued, Discharge/Readmit 0834 (Given - Provider: Anu Aguero, ROLF) miconazole (MICATIN) 2 % powder Topical, EVERY 12 HOURS SCHEDULED (2 times per day), First dose on 12/29/15 at 1145, Until Discontinued, Application site: [facility] 0837 (Given - Provider: Anu Aguero RN)2206 (Given - Provider: Roslyn Hinkle RN) 08 (Given - Provider: Lia Hendricks, ROLF)2053 (Given - Provider: Anu Aguero, ROLF) 0833 (Given - Provider: Lia Hendricks, ROLF) pantoprazole (PROTONIX) tablet 40 mg 40 mg, Oral, 2 TIMES DAILY, First dose (after last modification) on 12/28/15 at 2100, Until Discontinued, Do not crush or chew, Discharge/Readmit 0834 (Given - Provider: Anu Aguero RN)220 (Given - Provider: Roslyn Hinkle RN) 0813 (Given - Provider: Lia Hendricks, ROLF)2052 (Given - Provider: Anu Aguero, ROLF) 0829 (Given - Provider: Lia Hendricks, ROLF) risperiDONE [...] 2052 (Given - Provider: Anu Aguero RN) sodium chloride 0.9% syringe 10 mL 10 mL, Intravenous, EVERY 8 HOURS SCHEDULED (3 times per day), First dose on Wed01/01/16 at 0900, Until Discontinued, Flush PICC q8h when not in use 0900 (Not Given - Provider: Lia Hendricks RN - Reason: Contraindicated - Comment: given at 0552)1501 (Given - Provider: Lia Hendricks RN)1502 (Given - Provider: Lia Hendircks, ROLF)2343 (Given - Provider: Anu Aguero RN)2344 [...] on Wed12/28/15 at 2100, Until Discontinued, Discharge/Readmit 2205 (Given [...] RN) 0802 (New Bag - Provider: Lia Jacobs Eladio, RN)1257 (Stopped - Provider: Lia Hendricks, ROLF) PRN Medication Order 12/31/2015 01/01/2016 01/02/2016 0.45 % NaCl infusion (CANCELED) Intravenous, at 30 mL/hr, PREPROCEDURE CONTINUOUS, Starting on Wed12/31/15 at 0645, Until Wed01/01/16 at 0848, Administer 1 hour prior to procedure in left arm with 20 gauge or larger IV catheter, Pre-op (Floor Meds) 1358 (New Bag - Provider: Karly Ames RN)1627 (Anesthesia Volume Adjustment - Provider: Alyx [...] g 25 g, Intravenous, PRN, Starting on 12/29/15 at 0920, [...] at 1856, Low blood sugar, If FSBS less than 70 mg/dl, patient cannot take orally and without IV access, If patient is without IV access, give Glucagon 1 mg Intramuscularly, insert IV and call physician., Discharge/Readmit HYDROcodone-acetaminophe n (NORCO) 5-325 mg per tablet 1-2 Tab 1-2 Tablet, Oral, EVERY 6 HOURS PRN, Starting on Wed12/28/15 at 1949, Until Francine 01/02/16 at 1856, [...] PRN, Starting on Wed12/29/15 at 0953, Until Francine 01/02/16 at 1856, [...] PRN, Starting on Wed01/01/16 at 0849, Until Wed01/02/16 at 1856, Line Care, Flush with 10ml [...] 1 mg 1 12/29/2015 fentaNYL (SUBLIMAZE) 50 mcg/ mL injection 50 mcg 2 12/29/2015 ferrous sulfate tablet 325 mg 2 12/29/2015 12/28/2015 gabapentin (NEURONTIN) capsule 100 mg 2 12/28/2015 heparin 25,000 units in 250 mL 0.45% NaCl 2 12/29/2015 12/28/2015 hydrOXYzine (VISTARIL) capsule 50 mg 1 12/07 linagliptin (TRADJENTA) tablet 5 mg 2 12/2812/28/2015 lisinopril (PRINIVIL;ZESTril) tablet 5 mg 1 12/29/2015 LORazepam (ATIVAN) tablet 1 mg 1 12/29/2015 metoclopramide HCl (REGLAN) injection 10 mg 1 12/29/2015 miconazole (MICATIN) 2 % powder 2 6 pantoprazole (PROTONIX) tablet 40 mg 2 12/0712/28/2015 [...] Date First Orde red Date 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
--- OUTSIDE RECORDS SUMMARY | 2024-02-16 15:02 | XMS_ITS | Encounter Summary ---
Author Organization [place] [address] Care Team Providers Care Pallet Rectifier Name Role Phone Alessandra Trevino August Primary Care Provider + Reason for Visit * Reason Comments Rib Pain pt resident of [facility]. per staff pt fell out of bed wednesday night. increasing bruising since. Encounter Details Date Type Department Care Team (Late st Contact Info) Description 09/29/2015 5:27 AM EDT - 09/29/2015 9:27 AM EDT Emergency [facility] [address] [place] [address] Yary Go MD [address] [place] [address] Chest injury, initial encounter (Primary Dx) Discharge Disposition: Home or Self [...] Sign Reading Time Taken Comments Blood Pressure 139/94 09/29/2015 7:01 AM EDT Pulse 79 09/29/2015 5:27 AM EDT Temperature 36.7 ??C (98.1 ??F) 09/29/2015 5:27 AM ED T Respiratory Rate 20 09/29/2015 5:27 AM EDT Oxygen Saturation 100% 09/29/2015 7:01 AM EDT Inhaled Oxygen Concentration - - Weight 97.5 kg (215 lb) 09/29/2015 5:27 AM EDT Height 172.7 cm (5' 8 ) 09/29/2015 5:27 AM EDT Body Mass Index 32.69 09/29/2015 5:27 AM EDT documented in this encounter Discharge Instructions * Discharge Instructions* Yary Go MD - 09/29/2015 7:10 AM EDT Images from the original note were not included. Blunt Chest Trauma Blunt chest trauma is an injury caused by a blow to the chest. These chest injuries can be very painful. Blunt chest trauma often results in bruised or broken (fractured) ribs. Most cases of bruised and fractured ribs from blunt chest traumas get better after 1 to 3 weeks of rest and pain medicine.Often, the soft tissue in the chest wall is also injured, causing pain and bruising. Internal organs, such as the heart and lungs, may also be injured. Blunt chest trauma can lead to serious medical problems. This injury requires immediate medical care. CAUSES ?? Motor vehicle collisions. ?? Falls. ?? Physical violence. ?? Sports injuries. SYMPTOMS ?? Chest pain. The pain may be worse when you move or breathe deeply. ?? Shortness of breath. ?? Lightheadedness. ?? Bruising. ?? Tenderness. ?? Swelling. DIAGNOSIS Your caregiver will do a physical exam. X-rays may be taken to look for fractures. However, minor rib fractures may not show up on X-rays until a few days after the injury. If a more serious injury is suspected, further imaging tests may be done. This may include ultrasounds, computed tomography (CT) scans, or magnetic resonance imaging (MRI). TREATMENT Treatment depends on the severity of your injury. Your caregiver may prescribe pain medicines and deep breathing exercises. HOME CARE INSTRUCTIONS ?? Limit your activities until you can move around without much pain. ?? Do not do any strenuous work until your injury is healed. ?? Put ice on the injured area. ?? Put ice in a plastic bag. ?? Place a towel between your skin and the bag. ?? Leave the ice on for 15-20 minutes, 03-04 times a day. ?? You may wear a rib belt as directed by your caregiver to reduce pain. ?? Practice deep breathing as directed by your caregiver to keep your lungs clear. ?? Only take uobu-iki-labtslk or prescription medicines for pain, fever, or discomfort as directed by your caregiver. SEEK IMMEDIATE MEDICAL CARE IF: ?? You have increasing pain or shortness of breath. ?? You cough up blood. ?? You have nausea, vomiting, or abdominal pain. ?? You have a fever. ?? You feel dizzy, weak, or you faint. MAKE SURE YOU: ?? Understand these instructions. ?? Will watch your condition. ?? Will get help right away if you are not doing well or get worse. Document Released: 04/01/2005 Document Revised: 05/16/2012 Document Reviewed: 12/09/2011 ExitCare?? Patient Information ??2015 INNO[place]. This information is not intended to replace advice given to you by your health care provider. Make sure you discuss any questions you have with your health care provider. documented in this encounter Medications at Time [...] mg by mouth 2 times daily. 02/23/2017 glipiZIDE (GLUCOTROL) 10 mg Oral Tablet Take 10 mg by mouth 2 times daily (with meals). 09/21/2017 HYDROcodone-acet aminophen (NORCO) 5-325 mg Oral Tablet Take 1 Tab by mouth every 4 hours as needed for Pain for up to 6 doses. 6 Tab 0 09/29/2015 10/13/2015 hydrOXYzine (ATARAX) 50 mg Oral Tablet Take 25 mg by mouth 2 times daily. Reported on 06/22/2016 06/24/2016 ibuprofen (ADVIL;MOTRIN) 600 mg Oral Tablet Take 1 Tab by mouth every 8 hours as needed for Pain for up to 21 doses. 21 Tab 0 09/29/2015 10/13/2015 NIFEdipine (PROCARDIA XL) 90 mg Oral Tablet Extended Rel 24 hr Take 90 mg by mouth daily. 12/26/2015 pantoprazole (PROTONIX) 40 mg Oral Tablet, Delayed [...] Refills Last Filled Start Date End Date HYDROcodone-acetam inophen (NORCO) 5-325 mg Oral Tablet Take 1 Tab by mouth every 4 hours as needed for Pain for up to 6 doses. 6 Tab 0 09/29/2015 10/13/2015 ibuprofen (ADVIL;MOTRIN) 600 mg Oral Tablet Take 1 Tab by mouth every 8 hours as needed for Pain for up to 21 doses. 21 Tab 0 09/29/2015 10/13/2015 documented in this encounter Discharge Disposition Disposition Code Departure Means Destination Home or Self Alf documented in this encounter Progress Notes * Jayde Reyes RN - 09/29/2015 10:04 AM EDT 09/29/15: CC Initial Assessment, rec'd call from ED to al pt, per nursing, pt lives at [facility] in [place]. Per nursing, pt fell out of bed over night the night of 09/26, pt then reported to staff (Patricia) that she still had pain in ribs and would like to go to ED, staff (Patricia) then contacted [facility] admin Fransisco Hahn and he spoke with pt on phone and declined to have pt transported to ED. On unrelated incident, a [place] Police office (Bret Mancia) was at [facility], unknown staffapproched officer stating that pt wanted to go to ED and Admin would not allow it. Officer Boom called EMS for pt. CC met with pt in ED lobby, per pt she has lived at [facility] for 1 year, when asked if she likes it there she says no , CC asked if pt felt safe to return, pt states that while it is not nice, she feels safe to return, likes facility, has a boyfriend, pt denies any abuse, denies feeling unsafe, states that all of her needs (food, meds) are cared for, pt appears well groomed.CC asked about incident, per pt she fell out of bed overnight the night of 09/26-09/27, then asked togo to ED, worker Patricia called admin Fransisco Hahn, pt reports speaking to Fransisco on phone, states that Fransisco said If you had a broken rib, you would not be talking right now . Pt then states that sheis unsure of which worker reported incident to Officer Gavino as she was asleep when EMS arrived.Pt transported back to [facility] by taxi, denies HH needs. Call placed to CC Supervision quality control supervisor and APS. APS worker states that she was having system issues, worker to input info can call back CC with case number. Addendum: APS Report number is [id number] from broke beater machine operator [id number]. documented in this encounter ED Notes * Zoie Monge - 09/29/2015 9:20 AM EDT Jayde from social insurance analyst is talking to patient in the lobby * Leesa Pena, ROLF - 09/29/2015 9:15 AM EDT Pt ate all of breakfast * Zoie Monge - 09/29/2015 9:00 AM EDT resident services manager called about pt living arrangements * Yary Go MD - 09/29/2015 7:29 AM EDT Chief Complaint Patient presents with ??? Rib Pain pt resident of [facility]. per staff pt fell out of bed sallie night. increasing bruising since. HPI Comments: 65-year-old female presenting with right-sided rib pain. Patient is a resident of [facility]. According to the staff report of patient patient rolled out of bed overnight. Patient denies dizziness chest pain or shortness of breath prior to fall. Since falls been having pain in the right lateral chest. Denies abdominal pain. Denies shortness of breath currently. Denies any neck or back pain. Past history COPD, degenerative disc disease, CHF, diabetes, hypertension, restless leg, stroke. History provided by: Patient Allergies Allergen Reactions ??? Compazine [Prochlorperazine Edisylate] ??? [place] ??? [place] [Pentazocine Lactate] Home Medications: Prior [...] 30 mg by mouth daily. Provider, Historical ferrous sulfate 325 mg (65 mg iron) Oral Tablet Take 1 Tab by mouth 2 times daily (with meals). 04/04/15 Campbell Huston MD glipiZIDE (GLUCOTROL) 10 mg Oral Tablet Take 10 mg by mouth 2 times daily (with meals). Provider, Historical HYDROcodone-acetaminophen (NORCO) 5-325 mg Oral Tablet Take 1 Tab by mouth every 4 hours as needed for Pain for up to 6 doses. 09/29/15 10/13/15 Yary Go MD hydrOXYzine (ATARAX) 50 mg Oral Tablet Take 25 mg by mouth 2 times daily. Provider, Historical ibuprofen (ADVIL;MOTRIN) 600 mg Oral Tablet Take 1 Tab by mouth every 8 hours as needed for Pain for up to 21 doses. 09/29/15 10/13/15 Yary Go MD lisinopril (PRINIVIL;ZESTRIL) 10 mg Oral Tablet Take 5 mg by mouth daily. Provider, Historical NIFEdipine (PROCARDIA XL) 90 mg Oral Tablet Extended Rel 24 hr Take 90 mg by mouth daily. Provider,Historical pantoprazole (PROTONIX) 40 mg Oral Tablet, Delayed [...] Provider, Historical Past Medical History: Past Medical History Diagnosis Date ??? COPD (chronic obstructive pulmonary disease) (HCC) ??? DDD (degenerative disc disease) ??? CHF (congestive heart failure) (HCC) ??? Diabetes mellitus (HCC) ??? Hypertension ??? Yeast infection recurrent ??? Suicide attempt (HCC) ??? Stroke (HCC) 2010 left side affected ??? RLS (restless legs syndrome) Social History: reports that she has never smoked. She has never used smokeless tobacco. She reports that she does not drink alcohol or use illicit drugs. Family History: Family History Problem Relation Age of Onset ??? Cancer Mother raffaele cancer Surgical History: Past Surgical History Procedure Laterality Date ??? Lung surgery ??? Tonsillectomy ??? Breast surgery ??? Orthopedic surgery ??? Joint replacement ??? Ankle surgery ??? Upper gastrointestinal endoscopy N/A 04/03/2015 ESOPHAGOGASTRODUODENOSCOPY WITH BIOPSY AND BRUSHING; Surgeon: Be Brown MD; Location: [facility]; Service: Endoscopy Review of Systems Constitutional: Negative for appetite change. HENT: Negative. Eyes: Negative. Respiratory: Negative for cough and shortness of breath. Cardiovascular: Positive for chest pain. Negative for leg swelling. Gastrointestinal: Negative for nausea, vomiting and diarrhea. Musculoskeletal: Negative. Negative for back pain and neck pain. Skin: Negative for pallor. Neurological: Negative. Psychiatric/Behavioral: Negative. Negative for confusion and agitation. All other systems reviewed and are negative. Blood pressure 139/94, pulse 79, temperature 98.1 ??F (36.7 ??C), temperature source Oral, resp. rate 20, height 5' 8 (1.727 m), weight 215 lb (97.523 kg), SpO2 100 %. Physical Exam Constitutional: She appears well-developed and well-nourished. No distress. Eyes: Conjunctivae and EOM are normal. Neck: Normal range of motion. Neck supple. Cardiovascular: Normal rate, regular rhythm, normal heart sounds and intact distal pulses. Exam reveals no gallop and no friction rub. No murmur heard. Pulmonary/Chest: Effort normal and breath sounds normal. No respiratory distress. She has no wheezes. She has no rales. She exhibits tenderness (right lateral chest. There is no evidence of bruising or deformity.). Neurological: She is alert. Skin: Skin is warm and dry. No pallor. Psychiatric: She has a normal mood and affect. Nursing note and vitals reviewed. Procedures Radiology/EKG/Labs: Results for orders placed or performed during the hospital encounter of 09/29/15 XR CHEST PA AND LATERAL Narrative XR CHEST PA AND LATERAL 09/29/2015 6:08 AM CLINICAL: -RIB PAIN COMPARISON: 09/09/2015 FINDINGS: The cardiopericardial silhouette is mildly enlarged. The mediastinum and vasculature are within normal limits. The lungs are clear. Impression IMPRESSION: No acute disease. ED Course: Appropriate laboratory and radiology studies reviewed 65 y.o. female presenting with chest pain. Describes as a mechanical fall. Pain is reproducible. Noacute findings demonstrated on chest x-ray. Patient is discharged home to follow-up with family doctor. Secondary to severe pain and chest patient is given incentive spirometer as well as [place] and ibuprofen. Discussed test results and diagnosis with patient and family. Expressed understanding of findings and plan of care. Advised to return if new or worsening symptoms KARLENE is down. Requests #[id number] ED Clinical Impression: Chest injury, initial encounter (primary encounter diagnosis) Critical Care time Condition at Discharge/Transfer from Department: Stable This chart was completed using voice recognition technology and may contain unintended errors Yary Go MD 09/29/15 0732 Yary Go MD 09/29/15 0842 * Destini Marin RN - 09/29/2015 7:12 AM EDT Pt instructed on how to use incentive spirometer. Pt completed return demo. Destini Marin RN documented in this encounter Plan of Treatment Not on file documented as of this encounter Procedures Procedure Name Priority Date/Time Associated Diagnosis Comments XR CHEST PA AND LATERAL EMMY 09/29/2015 6:08 AM EDT documented in this encounter Results * XR CHEST PA AND LATERAL (09/29/2015 6:08 AM EDT) Anatomical Region Laterality Modality Chest Radiographic Whit ging 09/29/2015 6:08 AM EDT Impressions 09/29/2015 6:23 AM EDT IMPRESSION: No acute disease. Narrative 09/29/2015 6:23 AM EDT XR CHEST PA AND LATERAL ?? 09/29/2015 6:08 AM CLINICAL: -RIB PAIN COMPARISON: 09/09/2015 FINDINGS: The cardiopericardial silhouette is mildly enlarged. The mediastinum and vasculature are within normal limits. The lungs are clear. Procedure Note Juvenal Woodward III, MD - 09/29/2015 XR CHEST PA AND LATERAL 09/29/2015 6:08 AM CLINICAL: -RIB PAIN COMPARISON: 09/09/2015 FINDINGS: The cardiopericardial silhouette is mildly enlarged. Themediastinum and vasculature are within normal limits. The lungs are clear. IMPRESSION: No acute disease. Yary Go MD IMG DIAGNOSTIC IMAGING ORDERABLES Final Result documented in this encounter Visit Diagnoses Diagnosis Chest injury, initial encounter- Primary documented in this encounter Orders Nursing Count Last Ordered Date First Orde red Date RESPIRATORY ORDER/INSTRUCTION 1 09/29/2015 documented in this encounter Care Teams Pallet Rectifier Relationship Specialty Start Date End Date Alessandra Trevino August, [address] [place] [address] PCP - General Nurse Practitioner-Family 08/29/14 09/20/16 documented as of this encounter
--- OUTSIDE RECORDS SUMMARY | 2024-02-16 15:02 | XMS_ITS | Encounter Summary ---
Author Organization [place] [address] Care Team Providers Care Manager Discovery Name Role Phone Alessandra Trevino August Primary Care Provider + Reason for Visit * Reason Comments Infection Encounter Details Date Type Department Care Team (Late st Contact Info) Description 05/08/2015 10:38 AM EST - 05/08/2015 3:13 PM EST Emergency [facility] Emergency [address] [place] [address] Rod Wade MD [address] [place] [address] Yeast infection of the skin (Primary Dx); Cellulitis of skin Discharge Disposition: Home or Self Care Social History Tobacco Use Types Packs/Day Years Used Date Smoking Tobacco: Never Alcohol Use Standard Drinks/Week Comments [...] Sign Reading Time Taken Comments Blood Pressure 152/71 05/08/2015 10:39 AM EST Pulse 68 05/08/2015 10:39 AM EST Temperature 36.6 ??C (97.8 ??F) 05/08/2015 10:[address] Respiratory Rate 18 05/08/2015 10:39 AM EST Oxygen Saturation 100% 05/08/2015 10:39 AM EST Inhaled Oxygen Concentration - - Weight 99.8 kg (220 lb) 05/08/2015 10:39 AM EST Height 174 cm (5' 8.5 ) 05/08/2015 10:39 AM EST Body Mass Index 32.96 05/08/2015 10:39 AM EST documented in this encounter Discharge Instructions * Discharge Instructions* Naye Gipson PA-C - 05/08/2015 2:17 PM EST Take medications as prescribed Follow up with your family doctor in 3-4 days Keep skin folds at groin area with 4X4 to prevent further maceration of area Return if any problems documented in this encounter Medications at Time of Discharge ferrous sulfate 325 mg (65 mg iron) Oral Tablet Take 1 Tab by mouth 2 times daily (with meals). 60 Tab 5 04/04/2015 ARIPiprazole (ABILIFY) 10 mg Oral Tablet Take 30 mg by mouth 2 times daily. 7 clindamycin (CLEOCIN) 300 mg Oral Capsule Take 1 Cap by mouth every 6 hours for 28 doses. 28 Cap 0 05/08/2015 6 hydrOXYzine (ATARAX) 50 mg Oral Tablet Take 25 mg by mouth 2 times daily. Reported on 06/22/2016 7 nystatin (MYCOSTATIN) Top Cream Apply topically 2 times daily for 14 days. 1 Tube 0 05/08/2015 6 pantoprazole (PROTONIX) 40 mg Oral Tablet, Delayed Release (E.C.) Take 1 Tab by mouth 2 times daily. 60 Tab 1 04/04/2015 7 risperiDONE (RISPERDAL) 1 mg Oral Tablet Take 2 mg by mouth nightly. 7 venlafaxine (EFFEXOR-XR) 150 mg Oral Capsule, Sust. Release 24 hr Take 300 mg by mouth nightly. 7 documented as of this encounter Ordered Prescriptions Prescription Sig Dispense Quantity Refills Last Filled Start Date End Date clindamycin (CLEOCIN) 300 mg Oral Capsule Take 1 Cap by mouth every 6 hours for 28 doses. 28 Cap 0 05/08/2015 6 nystatin (MYCOSTATIN) Top Cream Apply topically 2 times daily for 14 days. 1 Tube 0 05/08/2015 6 documented in this encounter Discharge Disposition Disposition Code Departure Means Destination Home or Self Residential documented in this encounter ED Notes * Octavio Wolfe RN - 05/08/2015 3:10 PM EST [facility] was contacted and stated that someone would pharmacy picking technician Ms. Palm from the ER Lobby. * Naye Gipson PA-C - 05/08/2015 11:47 AM EST Chief Complaint Patient presents with ??? Infection HPI Comments: The patient was seen for Dr Wade. The patient is a 64-year-old diabetic white female from an assisted living facility who was broughtto the ER by squad for evaluation of yeast infection at the groin area. Patient states she's had this off-and-on for the past 6 months. She states she's been applying cream without any relief. She states the infection has gotten worse recently that she is even having problems walking due to the pain. She denies fever or chills. She takes metformin for her diabetes. Patient does not know exactly what medications she took for the yeast infection. Patient is here for further evaluation. Patient is a poor historian. History provided by: Patient Allergies Allergen Reactions ??? Compazine [Prochlorperazine Edisylate] ??? Moosic ??? Talwin [Pentazocine Lactate] Home Medications: Prior to Admission medications Medication Sig Start Date End Date Taking? Authorizing Provider ARIPiprazole (ABILIFY) 10 mg Oral Tablet Take 20 mg by mouth daily. Yes Provider, Historical hydrOXYzine (ATARAX) 50 mg Oral Tablet Take 50 mg by mouth every 6 hours as needed for Itching. YesProvider, Historical lisinopril (PRINIVIL;ZESTRIL) 10 mg Oral Tablet Take by mouth daily. Yes Provider, Historical risperiDONE (RISPERDAL) 1 mg Oral Tablet Take 1 mg by mouth nightly. Yes Provider, Historical roPINIRole (REQUIP) 0.5 mg Oral Tablet Take 0.5 mg by mouth nightly. Yes Provider, Historical venlafaxine (EFFEXOR-XR) 150 mg Oral Capsule, Sust. Release 24 hr Take 150 mg by mouth nightly. YesProvider, Historical ferrous sulfate 325 mg (65 mg iron) Oral Tablet Take 1 Tab by mouth 2 times daily (with meals). 04/04/15 Campbell Huston MD HYDROcodone-acetaminophen (NORCO) 5-325 mg Oral Tablet Take 1 Tab by mouth every 6 hours as needed for Pain. 10/22/14 Jordy Badillo MD METFORMIN HCL (METFORMIN ORAL) Take by mouth. Provider, Historical pantoprazole (PROTONIX) 40 mg Oral Tablet, Delayed Release (E.C.) Take 1 Tab by mouth 2 times daily. 04/04/15 Campbell Huston MD Past Medical History: Past Medical History Diagnosis Date ??? COPD (chronic obstructive pulmonary disease) (HCC) ??? DDD (degenerative disc disease) ??? CHF (congestive heart failure) (HCC) ??? Diabetes mellitus (HCC) ??? Hypertension ??? Yeast infection recurrent ??? Suicide attempt (HCC) ??? Stroke (HCC) 2010 left side affected ??? RLS (restless legs syndrome) Social History: reports that she has never smoked. She does not have any smokeless tobacco history on file. She reports that she does not drink [...] ENDOSCOPY; Service: Endoscopy Review of Systems Constitutional: Negative. HENT: Negative. Respiratory: Negative. Cardiovascular: Negative. Gastrointestinal: Negative. Genitourinary: Negative. Musculoskeletal: Negative. Skin: Positive for rash. Neurological: Negative. Psychiatric/Behavioral: Negative. All other systems reviewed and are negative. Blood pressure 152/71, pulse 68, temperature 97.8 ??F (36.6 ??C), temperature source Oral, resp. rate 18, height 5' 8.5 (1.74 m), weight 220 lb (99.791 kg), SpO2 100 %. Physical Exam Constitutional: She is oriented to person, place, and time. She appears well- nourished. No distress. Obese HENT: Head: Normocephalic and atraumatic. Eyes: Conjunctivae and EOM are normal. Pupils are equal, round, and reactive to light. Neck: Normal range of motion. Neck supple. Cardiovascular: Normal rate, regular rhythm, normal heart sounds and intact distal pulses. No murmur heard. Pulmonary/Chest: Effort normal and breath sounds normal. No respiratory distress. She has no wheezes. She has no rales. Abdominal: Soft. Bowel sounds are normal. She exhibits no distension and no mass. There is no tenderness. There is no rebound and no guarding. Musculoskeletal: Normal range of motion. Neurological: She is alert and oriented to person, place, and time. Skin: Skin is warm and dry. Rash noted. She is not diaphoretic. There is erythema. No pallor. Red, raw, coalesced rash of the groin area with a couple of small first degree ulcers. Cellulitis of the groin area observed. Psychiatric: She has a normal mood and affect. Her behavior is normal. Judgment and thought contentnormal. Vitals reviewed. Procedures Radiology/EKG/Labs: Results for orders placed or performed during the hospital encounter of 05/08/15 CBC WITH AUTO DIFF Result Value Ref Range WBC 8.0 4.0 - 11.0 x10(3)/mcL RBC 4.04 3.80 - 5.10 x10(6)/mcL Hgb 10.0 (L) 12.0 - 15.6 gm/dL Hct 32.2 (L) 35.7 - 45.9 % MCV 79.6 (L) 82.5 - 99.8 fL MCH 24.7 (L) 27.0 - 34.3 pg MCHC 31.0 (L) 32.1 - 35.3 gm/dL RDW 21.4 (H) 11.5 - 15.0 % Platelet 173 144 - 423 x10(3)/mcL MPV 9.1 6.8 - 10.8 fL BASIC METABOLIC PANEL Result Value Ref Range Sodium 142 136 - 145 mmol/L Potassium 4.2 3.5 - 5.0 mmol/L Chloride 105 98 - 107 mmol/L Total CO2 26 22 - 29 mmol/L Anion Gap 11 7 - 16 mmol/L Calcium 9.3 8.8 - 10.2 mg/dL Glucose Lvl 142 (H) 82 - 100 mg/dL BUN 20 8 - 23 mg/dL Creatinine 1.08 0.51 - 1.30 mg/dL GFR Afr Am >60 GFR Non Afr Am 51 DIFFERENTIAL Result Value Ref Range Neut Percent 69.9 % Lymph Percent 18.7 % Haralson Percent 4.3 % Eos Percent 6.5 % Baso Percent 0.6 % Neut# 5.6 1.8 - 7.7 x10(3)/mcL Lymph# 1.5 0.6 - 4.8 x10(3)/mcL Haralson# 0.3 0.0 - 1.3 x10(3)/mcL Eos# 0.5 0.0 - 0.5 x10(3)/mcL Baso# 0.0 0.0 - 0.2 x10(3)/mcL GLUCOSE METER POC Result Value Ref Range Glucose Lvl 124 (H) 70 - 100 mg/dL ED Course: Appropriate laboratory and radiology studies reviewed The patient was seen and evaluated in the ER. She presented with the above complaints. Physical exam is remarkable for candidal skin infection of the groin area with second-degree bacterial infection. She was afebrile. She did not appear septic. CBC and BMP unremarkable. Patient was discussed with the attending physician. Dr Wade also saw and evaluated the patient. She was prescribed nystatin cream and Cleocin. Discharge instructions were explained to her, she verbalized understanding. Patient was discharged home in a stable condition. ED Clinical Impression: Yeast infection of skin, groin Cellulitis of the groin area Critical Care time Condition at Discharge/Transfer from Department: Improved This chart was completed using voice recognition technology and may contain unintended errors Naye Gipson PA-C 05/08/15 [id number] Cosigned by Rod Wade MD at 05/08/2015 4:25 PM EST Associated attestation - Rod Wade MD - 05/08/2015 4:25 PM EST I have reviewed the chief complaint and history of present illness and review of systems as well asthe past medical/social/family history sections for this patient. I have examined this patient, andparticipated in the care of this patient. I have reviewed the pertinent clinical information including physical exam, labs, radiographic studies and the plan. This patient was seen in coordination with PA/PC SUPPORT SPECIALIST. This chart was completed using voice recognition technology and may contain unintended errors documented in this encounter Plan of Treatment Not on file documented as of this encounter Procedures Procedure Name Priority Date/Time Associated Diagnosis Comments GLUCOSE METER POC Routine 05/08/2015 11: 21 AM EST DIFFERENTIAL STAT 05/08/2015 10:50 AM EST CBC WITH DIFF STAT 05/08/2015 10:50 AM EST BASIC METABOLIC PANEL STAT 05/08/2015 10:50 AM EST documented in this encounter Results * (ABNORMAL) GLUCOSE METER POC (05/08/2015 11:21 AM EST) [facility] Glucose Meter POC 124(H) 70 - 100 mg/dL [facility] Blood specimen (specimen) 05/08/2015 11:21 AM EST 05/08/2015 11:21 AM EST us Rod Wade MD POINT OF CARE TEST ORDERABLES Final Result [facility] [address] [place] [address] * DIFFERENTIAL (05/08/2015 10:50 AM EST) Neut Percent 69.9 % [facility] Lymph Percent 18.7 % [facility] Haralson Percent 4.3 % [facility] Eos Percent 6.5 % [facility] Baso Percent 0.6 % [facility] Neut# 5.6 1.8 - 7.7 x10(3)/mcL [facility] Lymph# 1.5 0.6 - 4.8 x10(3)/mcL [facility] Haralson# 0.3 0.0 - 1.3 x10(3)/mcL [facility] Eos# 0.5 0.0 - 0.5 x10(3)/mcL [facility] Baso# 0.0 0.0 - 0.2 x10(3)/mcL [facility] Blood specimen (specimen) 05/08/2015 10:50 AM EST 05/08/2015 11:24 AM EST Rod Wade MD HEMATOLOGY ORDERABLES Final Re nilest [facility] [address] [facility] [place] [address] * (ABNORMAL) BASIC METABOLIC PANEL (05/08/2015 10:50 AM EST) Sodium 142 136 - 145 mmol/L [facility] Potassium 4.2 3.5 - 5.0 mmol/L [facility] Chloride 105 98 - 107 mmol/L [facility] Total CO2 26 22 - 29 mmol/L [facility] Anion Gap 11 7 - 16 mmol/L [facility] Calcium 9.3 8.8 - 10.2 mg/dL [facility] Glucose Lvl 142(H) 82 - 100 mg/dL [facility] BUN 20 8 - 23 mg/dL [facility] Creatinine 1.08 0.51 - 1.30 mg/dL [facility] GFR Afr Am >60 [facility] GFR Non Afr Am 51 [facility] Blood specimen (specimen) UPPER LIMB STRUCTURE / Unknown 05/08/2015 10:50 AM EST 05/08/2015 11:24 AM EST Rod Wade MD CHEMISTRY ORDERABLES Edited Re sult - Final Performing Organization Address [facility] de Phone Number [facility] [address] [place] [address] * (ABNORMAL) CBC WITH AUTO DIFF (05/08/2015 10:50 AM EST) WBC 8.0 4.0 - 11.0 x10(3)/mcL [facility] RBC 4.04 3.80 - 5.10 x10(6)/mcL [facility] Hgb 10.0(L) 12.0 - 15.6 gm/dL [facility] Hct 32.2(L) 35.7 - 45.9 % [facility] MCV 79.6(L) 82.5 - 99.8 fL [facility] MCH 24.7(L) 27.0 - 34.3 pg [facility] MCHC 31.0(L) 32.1 - 35.3 gm/dL [facility] RDW 21.4(H) 11.5 - 15.0 % [facility] Platelet 173 144 - 423 x10(3)/mcL [facility] MPV 9.1 6.8 - 10.8 fL [facility] Blood specimen (specimen) UPPER LIMB STRUCTURE / Unknown 05/08/2015 10:50 AM EST 05/08/2015 11:24 AM EST Rod Wade MD HEMATOLOGY ORDERABLES Final Lena day Performing Organization Address [facility] Co de Phone Number [facility] [address] [place] [address] documented in this encounter Visit Diagnoses Diagnosis Yeast infection of the skin- Primary Candidiasis of skin and nails Cellulitis of skin documented in this encounter Administered Medications Inactive Administered Medications - up to 1 most recent administrations Medication Order MAR Action Action Date Dose Rate Site HYDROcodone-acetaminophen (NORCO) 5-325 mg per tablet 1 Tab 1 Tablet, Oral, ONCE, 1 dose, On Wed05/08/15 at 1200, Maximum adult dose of acetaminophen is 4000 mg from all sources in 24 hours. Given 05/08/2015 11:54 AM EST 1 Tablet documented in this encounter Active and Recently Administered Medications Times are shown in EST. Scheduled Medication Order 05/06/2015 05/07/2015 05/08/2015 HYDROcodone-acetaminophen (NORCO) 5-325 mg per tablet 1 Tab (COMPLETED) 1 Tablet, Oral, ONCE, 1 dose, On Wed05/08/15 at 1200, Maximum adult dose of acetaminophen is 4000 mg from all sources in 24 hours. 1154 (Given - Provid er: Elvis Smith RN) documented in this encounter Orders Medications Ordered That Gaurav ht Not Have Been Administered Count Last Ordered Date First Ordered Date HYDROcodone-acetaminophen (N ORCO) 5-325 mg per tablet 1 Tab 1 05/08/2015 Nursing Count Last Ordered Date First Orde red Date FINGERSTICK BLOOD SUGAR 1 05/08/2015 documented in this encounter Care Teams Manager Discovery Relationship Specialty Start Date End Date VerotonePablomy August, [address] [facility] [address] [place] [id number] PCP - General Nurse Practitioner-Family 08/29/14 09/20/16 documented as of this encounter
--- OUTSIDE RECORDS SUMMARY | 2024-02-16 15:02 | XMS_ITS | Encounter Summary ---
Author Organization [place] [address] Care Team Providers Care Designer Architect Name Role Phone Alessandra Trevino August Primary Care Provider + Reason for Visit * Reason Comments Chest Pain patient c/o chest pa in on/off fro awhile, given nitro x2 with relief and ASA 324mg po by ems * Auth/Cert/Inpt Specialty Diagnoses / Procedures Referred By Contac t Referred To Contact Diagnoses Chest pain Chest pain at rest Referral ID Status Reason Start Date Expiration Date Visits Re quested Visits Authorized [id number] 1 1 Encounter Details Date Type Department Care Team (Late st Contact Info) Description 09/09/2015 3:23 PM EDT - 09/10/2015 5:37 PM EDT Emergency EDG 6D TCU [facility] [place] [address] Elizabeth Martin MD [address] [place] [address] [place] [address] Pj Bauer MD [address] [place] [address] Chest pain at rest (Primary Dx) Discharge Disposition: Home or Self [...] Sign Reading Time Taken Comments Blood Pressure 129/63 09/10/2015 3:39 PM EDT Pulse 95 09/10/2015 3:39 PM EDT Temperature 36.3 ??C (97.4 ??F) 09/10/2015 3:39 PM ED T Respiratory Rate 18 09/10/2015 3:39 PM EDT Oxygen Saturation 94% 09/10/2015 3:39 PM EDT Inhaled Oxygen Concentration - - Weight 97.7 kg (215 lb 4.8 oz) 09/10/2015 3:26 A M EDT Height 172.7 cm (5' 8 ) 09/09/2015 7:54 PM EDT Body Mass Index 32.74 09/09/2015 7:54 PM EDT documented in this encounter Discharge Summaries * Fam Valentine MD - 09/10/2015 3:42 PM EDT [facility] Discharge Summary Patient Name: Faby Palm : 1950 Admit Date: 09/09/2015 Discharge Date: 09/10/2015 Admitting Physician: Pj Bauer MD Discharge Physician: Fam Valentine MD Reason for Hospitalization: Active Hospital Problems *Chest pain at rest JACK (acute kidney injury) (HCC) Elevated alkaline phosphatase level Coronary artery disease involving te-moak coronary artery of te-moak heart Essential hypertension History of CVA (cerebrovascular accident) Weakness of left leg Hospital Course/Significant Findings: Pt is a 65 y.o female with remote hx of LA, HTN, and CVA (residual left side weakness) who presented to the ED with typical chest pain. She underwent ACS rule out which was negative. Lexiscan stress test with NM myoview also did not show any signs of myocardialischemia. Pt advised to follow up with PCP to discuss test results. Procedures Performed: None Consults: Discharge Exam: See Progress Note Discharge Diagnoses: Principal Problem: Chest pain at rest Active Problems: Weakness of left leg History of CVA (cerebrovascular accident) Essential hypertension JACK (acute kidney injury) (HCC) Elevated alkaline phosphatase level Coronary artery disease involving te-moak coronary artery of te-moak heart Condition at Discharge: good Disposition: Home Discharge Medications:: Medication List CONTINUE taking these medications acetaminophen 325 mg Tab Dose: 650 mg Refills: 0 Commonly known as: TYLENOL amitriptyline 75 mg Tab Dose: 75 mg Refills: 0 Commonly known as: ELAVIL ARIPiprazole 10 mg Tab Dose: 30 mg Refills: 0 Commonly known as: ABILIFY ferrous sulfate 325 mg (65 mg iron) Tab Dose: 325 mg Qty: 60 Tab Refills: 5 325 mg, Oral, 2 TIMES DAILY WITH MEALS glipiZIDE 10 mg Tab Dose: 10 mg Refills: 0 Commonly known as: GLUCOTROL hydrOXYzine 50 mg Tab Dose: 25 mg Refills: 0 Commonly known as: ATARAX lisinopril 10 mg Tab Dose: 5 mg Refills: 0 Commonly known as: PRINIVIL;ZESTril NIFEdipine 90 mg Tr24 Dose: 90 mg Refills: 0 Commonly known as: PROCARDIA XL pantoprazole 40 mg Tbec Dose: 40 mg Qty: 60 Tab Refills: 1 Commonly known as: PROTONIX 40 mg, Oral, 2 TIMES DAILY risperiDONE 1 mg Tab Dose: 2 mg Refills: 0 Commonly known as: RisperDAL roPINIRole 0.5 mg Tab Dose: 1.5 mg Refills: 0 Commonly known as: REQUIP sitaGLIPtin 100 mg Tab Dose: 100 mg Refills: 0 Commonly known as: JANUVIA venlafaxine 150 mg Cp24 Dose: 300 mg Refills: 0 Commonly known as: EFFEXOR-XR STOP taking these medications pioglitazone 15 mg Tab Commonly known as: ACTOS Follow Up: Alessandra Trevino August, [address] [facility] [address] In 3 days Signed: Fam Valentine MD 09/10/2015 3:48 PM Cosigned by Pj Bauer MD at 09/18/2015 4:56 PM EDT documented in this encounter Medications [...] 2 times daily. Reported on 06/22/2016 06/24/2016 NIFEdipine (PROCARDIA XL) 90 mg Oral [...] Code Departure Means Destination Home or Self Mcfp documented in this encounter Progress Notes * Tiara Pro RN - 09/10/2015 1:49 PM EDT 09/10/15 3125 Assessment Complete Actual Discharge Plan 09/09. CC initial assessment. Chart reviewed. Met with patient. Patient is in with chest pain. Getting stress test this date. Patient lives at the [facility] and patient states that they can pick her up from the hospital at discharge. Patient walking in room indeptly- CC instructed patient to make nursing aware if there is an issue with transportation at discharge, and CC can assist with that at that time. PCP is Dr. Trevino. Patient able to afford meds. NO needs noted. Completed by CC/SW Yes Discharge to Assisted living * Pj Bauer MD - 09/10/2015 8:26 AM EDT Patient: Faby Palm [facility] Day: PCP: Alessandra Trevino, FLAT FOLDING MACHINE OPERATOR C[facility]S: [facility]: [facility]: Code Status Full Code - Primary Hospital Physician(s) today: ('s) SBAR: Situation - Background: -65 yo female with PMHx significant for known CAD (reports LA 20 years ago but reports no stents), hx of CVA with left side residual weakness, PUD, HTN, CHF, Anxiety who presented to ED from [facility] with chest pain. Pt was admitted in Mar 2015 for chest pain, ACS ruled out underwent EDG (refused colonoscopy) and found to have ulcers Psychosocial Circumstances: -lives at [facility] in [place], [place] Assessment / Recommendations - Chest pain: JACK: KDIGO Stage 1 of 3 Hx of PUD: EGD in Mar 2015- ulcers in middle third of esophagus CHF diastolic and systolic dysfunction: Last ECHO 03/2015- LVEF 60-65% with stage 1 diastolic dysfunction. HTN: goal <140/90 on Nifedipine / Lisinopril DM: On Glipizide, januvia, pioglitazone Hx of CVA with residual left sided weakness: Pysch Hx: uncertain dx, currently on Abilify, risperidone, Requip, Elavil, Hydroxyzine, and Effexor Telemetry: - Core Measures: Smoking Cessation: [ ]Discussed [ ]NA [ ]Treatment KASPAR: [ ] Done [ ]NA Discharge Planning: -lives at [facility] in [place], [place] [ ]Home [ ]SNF [ ]ECF [ ]Rehab [ ]Hospice [ ]LTACH [ ]Uncertain Immunizations: There is no immunization history for the selected administration types on file for this patient. Scheduled Meds: ??? amitriptyline 75 mg Oral Nightly ??? ARIPiprazole 30 mg Oral Daily ??? ferrous sulfate 325 mg Oral BID WM ??? hydrOXYzine 25 mg Oral BID ??? [START ON 09/11/2015] insulin aspart 1-5 Units Subcutaneous QID WM ??? miconazole Topical 2 times per day ??? NIFEdipine 90 mg Oral Daily ??? pantoprazole 40 mg Oral BID ??? risperiDONE 2 mg Oral Nightly ??? roPINIRole 1.5 mg Oral Nightly ??? venlafaxine 150 mg Oral Nightly Continuous Infusions: ??? sodium chloride Stopped (09/10/15 0113) PRN Meds:.acetaminophen, dextrose, glucagon (human recombinant), hydrALAZINE, melatonin, miconazole, [id number] Objective: Vital Blood Pressure: 135/57 mmHg Temp: 97.7 ??F (36.5 ??C) Signs Pulse: 80 Resp: 16 SpO2: 92 % Temp (24hrs), Av ??F (36.7 ??C), Min:97.7 ??F (36.5 ??C), Max:98.3 ??F (36.8 ??C) SUPPLEMENTAL O2 & NIV (last filed) O2 Device: Room Air SpO2 Readings from Last 2 Encounters: 09/10/15 92% 05/08/15 100% Intake/Output Summary (Last 24 hours) at 09/10/15 0826 Last data filed at 09/10/15 0117 Gross per 24 hour Intake 497.01 ml Output 0 ml Net 497.01 ml Interval Labs / Imaging were reviewed I have provided direct personal supervision as needed. Care plan has been developed collaborativelywith resident physician(s) and team members. Pj Bauer MD * Fam Valentine MD - 09/10/2015 7:39 AM EDT Fam Valentine MD & [facility] Family Medicine Residency Team I and members of the team (including upper level resident and attendings) have participated in the development of this encounter and evaluation. PATIENT: Faby Palm : 1950 Hospital Day: Admit Date: 09/09/2015 PCP: Alessandra Trevino APRN Code Status Full Code C/S: MEDICAL DECISION MAKING Today;s Tasks / Orders / Goals / Main Issues Current main issues: Chest pain: - ruled out for ACS - underwent stress test this AM, mary edge, awaiting NM portion - remote hx of LA, not on ASA, statin, BB - ARABELLA held due to mild JACK - discussed with pt that she should speak with PCP regarding chest pain and evaluate for starting these medicines JACK: - resolved with fluids - likely secondary to dehydration, pt reports episodes of vomiting yesterday Hx of PUD: - EGD in March showing ulcers in middle third of esophagus - continue iron, PPI, and carafate - likely has GI component to chest pain CHF: - ECHO 03/2015: LVEF 60-65%, stage 1 diastolic dysfunction - has LE edema and reports taking a water pill which is not lasix - advised to follow up with PCP, likely needs lasix, however will not start today due to bump in Crfrom baseline HTN: - on ARABELLA - continue procardia - goal< 140/90, currently stable DM: - on glipizide, januvia, and pioglitazone - pt advised to stop pioglitazone with hx of CHF, to follow up with PCP HX of CVA: - not on ASA or statin Dispo: Discharge home today if NM portion of stress test also normal. Continuous Infusions: ??? sodium chloride Stopped (09/10/15 0113) Postoperative & procedures (including Lines and Drains) Status & Events: -Kennedy: no - Problem List Updated & SBAR: reviewed yes Core Measures: A. VTE Prophylaxis: not indicated / SCD'S: yes B. Immunizations: There is no immunization history for the selected administration types on file for this patient. Anticipated discharge plans and/or psychosocial circumstances: - [ ]Home [ ]SNF [ ]ECF [ ]Rehab [ ]Hospice [ ]LTACH [ ]Uncertain - Subjective: HCAHPS: New medications explained yes Yazmin not experienced side effects. Comments: She states has improved over the previous 24 hours. Patient reports no complaints. ROS: Activity: change activity as tolerated Diet: CARDIAC DIET MAR reviewed: yes Objective: Vital Blood Pressure: 126/74 mmHg Temp: 98.1 ??F (36.7 ??C) Signs Pulse: 92 Resp: 18 SpO2: 100 % Temp (24hrs), Av ??F (36.7 ??C), Min:97.7 ??F (36.5 ??C), Max:98.3 ??F (36.8 ??C) SUPPLEMENTAL O2 & NIV (last filed) O2 Device: Room Air SpO2 Readings from Last 2 Encounters: 09/10/15 100% 05/08/15 100% MECHANICAL VENTILATION (last filed) BLOOD GAS & ACID BASE DATA SpO2 Av.6 % Min: 92 % Max: 100 % Intake/Output Summary (Last 24 hours) at 09/10/15 1224 Last data filed at 09/10/15 0117 Gross per 24 hour Intake 497.01 ml Output 0 ml Net 497.01 ml Wt Reading from Admission: Body mass index is 32.74 kg/(m^2). 09/09/2015 220 lb (99.791 kg) Wt Readings from Last 1 Encounters: 09/10/15 215 lb 4.8 oz (97.659 kg) EXAM: Constitutional: Faby is alert, well developed, well nourished, in no acute distress Lungs: clear to auscultation bilaterally} CV: normal rate, regular rhythm, normal S1, S2, no murmurs, rubs, clicks or gallops Abdomen: soft, non-tender; bowel sounds normal; no masses, no organomegaly Extremities: 2+ bilateral pedal edema Neuro: oriented, no focal deficits Skin: warm and dry, no hyperpigmentation, vitiligo, or suspicious lesions Skin breakdown SBAR reviewed Telemetry: - normal sinus Labs / Imaging: Interval Results Reviewed FSBG: reviewed CBC: Recent Labs 09/09/15 1635 09/10/15 0556 WBC 9.0 7.0 HGB 12.5 12.7 PLT 164 132* BMP: Recent Labs 09/09/15 1635 09/10/15 0556 NA 145 146* K 4.4 3.5 CL 105 106 CO2 25 24 BUN 26* 20 CREATININE 1.42* 1.30 Hepatic: Recent Labs 09/09/15 1635 09/09/15 2241 09/09/15 2241 AST 13 21 -- ALT 13 15 -- ALKPHOS 182* 182* 182* Complexity and Time involved: For Critical Care Patients Risk of Complications / Morbidity / Mortality - High: -Illness(es) present that pose a threat to life/bodily function -Significant exacerbation of illness / side effects of treatment -Use of parenteral controlled substances -Therapy requires monitoring for toxicity Total Time Spent: > 30 Minutes Fam Valentine MD Cosigned by Pj Bauer MD at 09/18/2015 4:56 PM EDT * Marcos Flores RN - 09/10/2015 1:30 AM EDT Patient lost IV access. Patient has already had multiple sticks this evening for IV access and refused to let us try anymore. Notified the resident industrial relations manager and she stated it is fine to keep off IV fluids. Will continue to monitor. * Marcos Flores RN - 09/09/2015 10:22 PM EDT Skin assessment completed with Analy Garcia RN, kellentent has redness/excoriation in perineum area and also under abdominal folds. Micatin powder ordered. Patient also has an old scarred spot on her left buttocks, possibly from previously healed ulcer. No other skin issues noted at this time. Will continue to monitor. * Stefani Haro RN - 09/09/2015 6:50 PM EDT 09/09/15 1850 ED Screening ED Screening Completed Initial screening complete, no post-acute needs identified at this time Medical Record Reviewed Yes Who you interviewed In person interview with patient What brought the patient to the ED chest pain Where did the patient come from? Assisted Living ([facility]) Support Systems Home Care Staff Activities of Daily Living Independent Mental Status Alert and oriented Issues with non-compliance No Anticipated post-acute care needs Home with OP Follow Up Potential barriers to discharge No Observation Information Provided to Patient/Family Yes documented in this encounter H&P Notes * Silvana Vásquez DO - 09/09/2015 6:44 PM EDT [facility] Residency History & Physical Silvana Susan Vásquez DO & [facility] Family Medicine Residency Team I and members of the team (including upper level resident and attending) have participated in the development of this encounter and evaluation. PATIENT: Faby Palm : 1950 Admit Date: 09/09/2015 PCP: Alessandra Trevino August, C/S: Admitting Physician: Pj Bauer MD Code Status: FULL CODE Advanced Directive: unable to obtain- will need to contact assist living facility is my Health CareSurrogate (Who would be the person that helps make medical decisions should you not be able to voice your desires for goals of care?) Pt estranged from family for over 1 year Subjective: Chief Complaint: Chief Complaint Patient presents with ??? Chest Pain patient c/o chest pain on/off fro awhile, given nitro x2 with relief and ASA 324mg po by ems History of Present Illness: 65 yo female with PMHx significant for known CAD (reports LA 20 years ago but reports no stents), hx of CVA with left side residual weakness, PUD, HTN, CHF, Anxiety who presented to ED from assisted living with chest pain. Pt is a poor historian, uncertain of medical hx or what medications she is on. Pt reports on and off chest pain over ismael last few weeks. States it usually happens at random usually at rest, occasionally after she eats. The pain is center of her chest and radiates to her left arm. Usually she the pain resolves on its own without associated N/V/diaphoreiss or SOB. Today she was at a cookout for 08 of September and chest pain started after eating. Pain was middle of chest radiating to left shoulder and jaw with sweating, SOB, feeling light headed and feeling like she was goingto pass out. Assisted living called 911. She was given nitro and ASA en route to ED which improved pain. Pain lasted about 30 mins today. States pain is not like when she had her heart attack 20 years ago. Pt states she has had lower ext edema over the last few months. She states she was started on a water pill but does not know name or dose. Denies chronic SOB no orthopnea, no cough. Pt was admitted in Mar 2015 for chest pain, ACS ruled out at that time, thought to have more GI symptoms underwent EDG (refused colonoscopy) and found to have ulcers. She was started on Protonix BID and iron for iron def anemia. Currently denies black tarry stools, no sebastián blood in stools. H/H stable on CBC in ED. Pt currently lives at [facility] in [place], [place]. She has resided there for over 1 year. States she used to live in [place] until she had her stroke then was placed at assisted living. She does not know why she was moved there. She has not seen or talked to her family since being placed in assisted living. I attempted to contact the Assisted living facility this evening to update medical hx and medications but was unable to get a hold of someone. Pt states Lexi is the person who gives her her medications daily. ED course: troponin neg x2, no acute EKG changes-NSR, non specific ST elevation in Inf leads which was present on previous EKG in mar, Qwaves inf leads, No reciprocal changes on EKG. CXR no acute disease. CMP- elevated BUN/Cr 26/1.42; alk phos 182, CBC - unremarkable, stable H/H. Lipase normal Review of Systems: The listed systems were reviewed and reveal the following: All other ROS non-contributory. Constitutional: no malaise, fever, anorexia or weight loss, +diaphoresis Eyes: no changes in acuity, double vision or dry eyes HENT: no hoarseness, no sore throat, no mouth sores, no congestion, no epistaxis Lungs: shortness of breath with chest pain today , no cough Cardiovascular: chest pain Endocrine: no polyuria, no polydipsia GI: abd pain, nausea with vomiting today : no additional concerns noted Musculoskeletal: no additional concerns noted Neurologic: no headaches, weakness or paresis, syncope or seizures Skin: no additional concern noted Psychiatric: anxiety Hematologic/Allergic: no additional concerns noted Problem List Reviewed, Hospital Problem List Up Dated, and Overview Developed: yes Medication Reconciliation and Allergies: yes Social History and Family History Reviewed: yes Tobacco / Drug / Alcohol History: History Alcohol Use No History Drug Use No History Smoking status ??? Never Smoker Smokeless tobacco ??? Never Used Immunizations: There is no immunization history for the selected administration types on file for this patient. Objective: Physical Exam / Data Body mass index is 33.11 kg/(m^2). Wt Readings from Last 1 Encounters: 09/09/15 217 lb 11.2 oz (98.748 kg) Ht Readings from Last 1 Encounters: 09/09/15 5' 8 (1.727 m) Vital Blood Pressure: (!) 179/93 mmHg Temp: 98.3 ??F (36.8 ??C) Signs Pulse: 84 Resp: 18 SpO2: 100 % Temp (24hrs), Av.1 ??F (36.7 ??C), Min:97.9 ??F (36.6 ??C), Max:98.3 ??F (36.8 ??C) SUPPLEMENTAL O2 & NIV (last filed) O2 Device: Room Air SpO2 Readings from Last 2 Encounters: 09/09/15 100% 05/08/15 100% General: Faby appears alert, well developed, well nourished, in no acute distress Skin: warm, well perfused and no rashes She does not have skin breakdown - See SBAR Head: Normocephalic, without obvious abnormality, atraumatic Eyes: Pupils equal, round and reactive to light and Extraocular movements intact ENT: ENT exam normal, mucous membranes moist Neck: neck is supple and there is full active range of motion Breast: not examined Lungs: clear to auscultation bilaterally Cardiovascular: heart tones normal S1, S2 No JVD, no S3 gallop Pulses Table: L radial + R radial + L dorsalis pedis + R dorsalis pedis + Abdomen: abdomen is soft, nontender- no epigastric tenderness on palpation, and nondistended without hepatosplenomegaly or masses, normoactive bowel sounds are present, there are no peritoneal signs Back: symmetric, no curvature. ROM normal. No CVA tenderness. : not examined Lymphadenopathy: normal and no adenopathy noted Musculoskeletal/Ext: normal muscle bulk with no contractures or deformities +2 pitting edema b/l LEL>R, non tender to palpation, neg homans sign, no cords, +2 distal pulses palpated b/l. Neurological: alert and oriented x3, although someone tangential on exam easily redirected. Poor historian. Evidence of tardive dyskinsia on exam- lip smacking. No focal deficits except for weakness in left leg, sensation intact b/l Data Current Labs, Radiologic Studies and Medical Test Reviewed: yes MEDICAL DECISION MAKING Assessment and Plan: Active Hospital Problems Diagnosis Date Noted ??? Chest pain at rest 09/09/2015 ??? JACK (acute kidney injury) (HCC) 09/09/2015 ??? Elevated alkaline phosphatase level 09/09/2015 ??? Coronary artery disease involving te-moak coronary artery of te-moak heart 09/09/2015 ??? Essential hypertension 10/19/2014 ??? History of CVA (cerebrovascular accident) 10/19/2014 ??? Weakness of left leg 10/19/2014 Resolved Hospital Problems Diagnosis Date Noted Date Resolved No resolved problems to display. Chest pain: known CAD, chest pain with typical and atypical features. improved with Nitro. With associated SOB, vomiting, lightheadedness today. Pain comes on after eating sometimes. Had a cheeseburger and hot dog at 08 of September green party today. Pain started shortly after eating. troponin's neg x2, no acute EKG changes. Pt with known CAD and PUD, Pain is more consistent with GI however will admit forACS r/o. Is having chest pain at rest not associated with food over the last few months. Pt currently eating large plate of food in ED. Will monitor for chest pain after eating this evening. - admit to TCU- telemetry - trend troponins - EKG in am - given symptoms consider stress test in am and repeat ECHO - consider GI consult for repeat EGD - CXR - normal - I/Os - ASA, nitroglycerin PRN, morphine - BMP, lipid panel, TSH and CBC in AM JACK: KDIGO Stage 1 of 3. (an increase of serum creatinine that is 1.5 - 1.9 times the baseline creatinine or an absolute increase of 0.3 mg / dL over baseline. Also can be defined as a decrease in urine output to <0.5 ml /kg/hour for 6-12 hours) - BUN/Cr 26/1.42; GFR 37; CO2 25, CrCl 41.1 - BUN/Cr in May 2015 and Mar 2015- 20/1.08 with GFR 51. -- suspect underlying CKDIIIA - likely prerenal with BUN/Cr ratio ~18. FeNa ordered - hold nephrotoxic meds- no NSAIDS, hold lisinopril - follow up urine studies - IVF overnight- gentle hydration given CHF - repeat BMP in am - consider renal ultrasound if not improving Hx of PUD: EGD in Mar 2015- ulcers in middle third of esophagus- pathology neg for malignancy, foodin stomach. She was started on Iron, Protonix BID and Carafate. Continue Protonix. Suspect a GI component to Chest pain. No epigastric tenderness on exam. Consider GI consult if cardiac work-up neg. CHF diastolic and systolic dysfunction: Last ECHO 03/2015- LVEF 60-65% with stage 1 diastolic dysfunction. LA dilation, Right ventricular systolic pressure 32mmHg. Appears compensated currently. Exam unremarkable except for chronic LE pitting edema. Pt reports taking water pill at home, not on medlist and unable to get updated med list tonight. Will update in am. - pt needs to be started on [place] therapy currently on ACEI, consider starting Metoprolol XL vs Coreg, Statin and daily ASA therapy and lasix if needed (may already be on- unsure) Elevated Alk Phos: chronically elevated over the last year. Will obtain GGT and fractioned alk phos. Further work-up pending results. No recent Mammogram in [facility]. HTN: goal <140/90. Currently on lisinopril hold for JACK. Will add PRN hydralazine for now - recommend starting BB ?DM: On Glipizide, januvia, pioglitazone daily. Pt poor historian. Will hold for now and monitor blgl. Recommend stopping Pioglitazone given CHF dx. - fingerstick blgl - low dose correctional - hemoglobin A1c ordered Pysch Hx: uncertain dx, currently on Abilify, risperidone, Requip, Elavil, Hydroxyzine, and Effexor. Strongly recommend these medications be adjusted and deescalated bobby given symptoms of tardive dyskinsia. Consider Psych consult to assist with medications - These are confirmed meds on her med list from outside facility Hx of CVA with residual left sided weakness: lives in assisted living Health Care Maintenance: needs mammogram and colonoscopy, Pneumovax and Tdap. Psychosocial Circumstances: lives at [facility] in [place], [place] Prophylaxis: SCD, Protonix 40mg BID FEN: cardiac diet, NS @100cc/hr Disposition: admit for ACS r/o and JACK Silvana Vásquez, 09/09/2015 Cosigned by Pj Bauer MD at 09/18/2015 4:56 PM EDT documented in this encounter ED Notes * Ashok Hawkins RN - 09/09/2015 6:57 PM EDT Fed pt * Anthony Ann - 09/09/2015 4:39 PM EDT Labs drawn * Elizabeth Martin MD - 09/09/2015 3:48 PM EDT CHIEF COMPLAINT Chief Complaint Patient presents with ??? Chest Pain patient c/o chest pain on/off today, given nitro x2 and ASA 324mg po by ems HPI Faby Palm is a 65 y.o. female who presents anterior chest pain that radiated down her left arm. She states it occurred this morning while eating breakfast initially thought it was indigestion, not relieved by tums. Occurred again at lunchtime. At both of these times she felt a little lightheaded like she might pass out and also had nausea with vomiting. She states over the past couple weeks. She's been having episodes of chest pain does not always occur with eating but today was the firsttime she felt lightheaded last 20-30 minutes each time, had not told anybody until today. Has not vomited bloody or black stool. Not been having abdominal pain. Has noticed a couple weeks of some leg swelling which is new. No fevers Was sweaty and clammy earlier REVIEW OF SYSTEMS See HPI for further details. Has had leg swelling, jaw pain, intermittent chest pain, no vomiting, no bloody or black stool Review of systems otherwise negative. PAST MEDICAL HISTORY Past Medical History Diagnosis Date ??? COPD (chronic obstructive pulmonary disease) (HCC) ??? DDD (degenerative disc disease) ??? CHF (congestive heart failure) (HCC) ??? Diabetes mellitus (HCC) ??? Hypertension ??? Yeast infection recurrent ??? Suicide attempt (HCC) ??? Stroke (HCC) 2010 left side affected ??? RLS (restless legs syndrome) FAMILY HISTORY Family History Problem Relation Age of Onset ??? Cancer Mother larnyx cancer SOCIAL HISTORY History Social History ??? Marital Status: Spouse Name: N/A ??? Number of Children: N/A ??? Years of Education: N/A Social History Main Topics ??? Smoking status: Never Smoker ??? Smokeless tobacco: Not on file ??? Alcohol Use: No ??? Drug Use: No ??? Sexual Activity: Not on file Other Topics Concern ??? Not on file Social History Narrative SURGICAL HISTORY Past Surgical History Procedure Laterality Date ??? Lung surgery ??? Tonsillectomy ??? Breast surgery ??? Orthopedic surgery ??? Joint replacement ??? Ankle surgery ??? Upper gastrointestinal endoscopy N/A 04/03/2015 ESOPHAGOGASTRODUODENOSCOPY WITH BIOPSY AND BRUSHING; Surgeon: Be Brown MD; Location: PENDING SALE TO [facility]; Service: Endoscopy CURRENT MEDICATIONS Current Outpatient Rx Name Route Sig Dispense Refill ??? ARIPiprazole (ABILIFY) 10 mg Oral Tablet Oral Take 20 mg by mouth daily. ??? ferrous sulfate 325 mg (65 mg iron) Oral Tablet Oral Take 1 Tab by mouth 2 times daily (with meals). 60 Tab 5 ??? HYDROcodone-acetaminophen (NORCO) 5-325 mg Oral Tablet Oral Take 1 Tab by mouth every 6 hours as needed for Pain. 12 Tab 0 ??? hydrOXYzine (ATARAX) 50 mg Oral Tablet Oral Take 50 mg by mouth every 6 hours as needed for Itching. ??? lisinopril (PRINIVIL;ZESTRIL) 10 mg Oral Tablet Oral Take by mouth daily. ??? METFORMIN HCL (METFORMIN ORAL) Oral Take by mouth. ??? pantoprazole (PROTONIX) 40 mg Oral Tablet, Delayed Release (E.C.) Oral Take 1 Tab by mouth 2 times daily. 60 Tab 1 ??? risperiDONE (RISPERDAL) 1 mg Oral Tablet Oral Take 1 mg by mouth nightly. ??? roPINIRole (REQUIP) 0.5 mg Oral Tablet Oral Take 0.5 mg by mouth nightly. ??? venlafaxine (EFFEXOR-XR) 150 mg Oral Capsule, Sust. Release 24 hr Oral Take 150 mg by mouth nightly. ALLERGIES Allergies Allergen Reactions ??? Compazine [Prochlorperazine Edisylate] ??? Kenefic ??? Talwin [Pentazocine Lactate] PHYSICAL EXAM VITAL SIGNS: Constitutional: Well developed, Well nourished, No acute distress, Non-toxic appearance. HENT: Normocephalic, Atraumatic, Bilateral external ears normal, Oropharynx moist, No oral exudates, Nose normal. Patient has some lipsmacking. She has upper dentures and is edentulous on the lower. She says she is trying to find a sore spot on her gums, b/c jaw was hurting earlier Eyes: PERRLA, EOMI, Conjunctiva normal, No discharge. Neck: Normal range of motion, No tenderness, Supple, No stridor. Cardiovascular: Normal heart rate, Normal rhythm, No murmurs, No rubs, No gallops. Thorax & Lungs: Normal breath sounds, No respiratory distress, No wheezing, No chest tenderness. Abdomen: Soft, No tenderness, No masses, No pulsatile masses. Skin: Warm, Dry, No erythema, No rash. Back: No tenderness, No CVA tenderness. Extremities: Intact distal pulses, 1+ bilateral edema, No tenderness, No cyanosis Musculoskeletal: Good range of motion in all major joints. No tenderness to palpation or major deformities noted. Neurologic: Alert & oriented x 3, Normal motor function, Normal sensory function, No focal deficits noted. Psychiatric: Affect normal, Judgment normal, Mood normal. EKG EKG done at 1528, rate of 91, sinus rhythm, PVCs, low QRS voltage, Q waves inferior leads. Comparedto an EKG done in March of this year. PVCs. 2. New, but otherwise unchanged RADIOLOGY/PROCEDURES Results for orders placed or performed during the hospital encounter of 09/09/15 XR CHEST PA AND LATERAL Narrative TWO VIEWS OF THE CHEST 09/09/2015 HISTORY: Chest pain. COMPARISON: April 01, 2015. FINDINGS: The heart is normal in size. The lungs are clear of infiltrate. The costophrenic angles are within normal limits. There is no pleural effusion. No pneumothorax. Impression IMPRESSION: Stable chest. CBC WITH AUTO DIFF Result Value Ref Range WBC 9.0 4.0 - 11.0 x10(3)/mcL RBC 4.48 3.80 - 5.10 x10(6)/mcL Hgb 12.5 12.0 - 15.6 gm/dL Hct 37.7 35.7 - 45.9 % MCV 84.2 82.5 - 99.8 fL MCH 27.8 27.0 - 34.3 pg MCHC 33.1 32.1 - 35.3 gm/dL RDW 16.0 (H) 11.5 - 15.0 % Platelet 164 144 - 423 x10(3)/mcL MPV 9.2 6.8 - 10.8 fL BASIC METABOLIC PANEL Result Value Ref Range Sodium 145 136 - 145 mmol/L Potassium 4.4 3.5 - 5.0 mmol/L Chloride 105 98 - 107 mmol/L Total CO2 25 22 - 29 mmol/L Anion Gap 15 7 - 16 mmol/L Calcium 9.3 8.8 - 10.2 mg/dL Glucose Lvl 119 (H) 82 - 100 mg/dL BUN 26 (H) 8 - 23 mg/dL Creatinine 1.42 (H) 0.51 - 1.30 mg/dL GFR Afr Am 45 GFR Non Afr Am 37 TROPONIN-T Result Value Ref Range Troponin-T <0.01 <=0.00 ng/mL LIPASE LEVEL Result Value Ref Range Lipase Lvl 24 13 - 60 IU/L HEPATIC FUNCTION PANEL Result Value Ref Range Total Protein 7.5 6.4 - 8.3 gm/dL Albumin 4.0 3.2 - 4.6 gm/dL Bili Direct <0.2 0.0 - 0.3 mg/dL Bili Total 0.2 0.1 - 1.3 mg/dL AST 13 <=40 IU/L ALT 13 <=41 IU/L Alk Phos 182 (H) 35 - 104 IU/L DIFFERENTIAL Result Value Ref Range Neut Percent 66.1 % Lymph Percent 23.9 % Towns Percent 6.8 % Eos Percent 2.8 % Baso Percent 0.4 % Neut# 5.9 1.8 - 7.7 x10(3)/mcL Lymph# 2.2 0.6 - 4.8 x10(3)/mcL Towns# 0.6 0.0 - 1.3 x10(3)/mcL Eos# 0.3 0.0 - 0.5 x10(3)/mcL Baso# 0.0 0.0 - 0.2 x10(3)/mcL EK EKG 12 LEAD Narrative NOTICE: Preliminary tracing available for review; Final Interpretation by physician to follow. Impression Stationary ECG Study [facility] [place] Interpretive Statements SINUS RHYTHM WITH OCCASIONAL VENTRICULAR PREMATURE COMPLEXES LOW QRS VOLTAGE IN PRECORDIAL LEADS INFERIOR MYOCARDIAL INFARCTION, PROBABLY OLD ANTEROSEPTAL MYOCARDIAL INFARCTION, PROBABLY OLD COURSE & MEDICAL DECISION MAKING Pertinent Labs & Imaging studies reviewed. (See chart for details) Patient was pain-free at the time my evaluation. Some of her symptoms are more concerning for GI, but certainly concern for cardiac with intermittent chest pain radiating to jaws and left shoulder. Patient is in an assisted living facility, unclear why states she is from [place] within the hospital and that she [facility]. She is on Abilify and Risperdal perhaps this is related to mental health reasons patient has had aspirin and nitroglycerin here. EKG has no ST changes. Initial troponin is normal. Plan admit to the hospital to the [facility] practice service for further workup and evaluation plan. Rule out from a cardiac perspective, but may need addressing of GI component of symptoms with Dr. Vásquez with the resident team who accepted the admission FINAL IMPRESSION 1. 1. Chest pain at rest Condition the disposition: stable This chart was completed using voice recognition technology and may contain unintended errors Elizabeth Martin MD 09/09/15 8028 documented in this encounter Miscellaneous Notes * Utilization Review Notes - Yesenia Alvarez RN - 09/10/2015 8:44 AM EDT OBS ORDER ON CHART. ON TCU TELE. URGENT ADMIT FROM ED WITH CHEST PAIN AT REST. TROPONIN <0.01. STRESS TEST. SS CONSULT. HOME AT D/C. * Plan of Care - Marcos Flores RN - 09/10/2015 2:56 AM EDT Problem: Chest Pain Cardiac Dysfunction Goal: Patient will have adequate blood volume through coronary vasculature maintained and cardiac pump effectiveness will be improved Outcome: Progressing Patient has had no complaints of chest pain since arriving from the ED. Stress test scheduled in the AM documented in this encounter Plan of Treatment Not on file documented as of this encounter Procedures Procedure Name Priority Date/Time Associated Diagnosis Comments SCANNED RHYTHM STRIPS 09/12/2015 10:10 PM EDT SCANNED RADIOLOGY REPORT 09/10/2015 3:48 PM EDT GLUCOSE METER POC Routine 09/10/2015 11: 11 AM EDT SCANNED RHYTHM STRIPS 09/10/2015 11:06 AM EDT NM MYOCARDIAL PERFUSION SPECT STRESS AND REST EMMY 09/10/2015 9:[address] STRESS TEST LEXISCAN Routine 09/10/2015 9:08 AM EDT EK EKG 12 LEAD Routine 09/10/2015 6:45 AM EDT DIFFERENTIAL Early AM 09/10/2015 5:56 AM EDT CBC WITH DIFF Early AM 09/10/2015 5:56 AM EDT BASIC METABOLIC PANEL Early AM 09/10/2015 5:56 AM EDT TROPONIN-T Timed 09/09/2015 10:41 PM EDT HEMOGLOBIN A1C Routine 09/09/2015 10:41 PM EDT ALKALINE PHOSPHATASE ISOENZYMES Routine 09/09/2015 10:41 PM EDT THYROID STIMULATING HORMONE Routine 09/09/2015 10:41 PM EDT GAMMA GLUTAMYL TRANSFERASE Routine 09/09/2015 10:41 PM EDT HEPATIC FUNCTION PANEL Routine 09/09/2015 10:41 PM EDT LIPID SCREEN Routine 09/09/2015 10:41 PM EDT GLUCOSE METER POC Routine 09/09/2015 10: 07 PM EDT IP CONSULT TO SOCIAL WORK Routine 09/09/2015 7:50 PM EDT TROPONIN-T STAT 09/09/2015 7:05 PM EDT TROPONIN-T STAT 09/09/2015 4:35 PM EDT DIFFERENTIAL STAT 09/09/2015 4:35 PM EDT CBC WITH DIFF STAT 09/09/2015 4:35 PM EDT LIPASE LEVEL STAT 09/09/2015 4:35 PM EDT HEPATIC FUNCTION PANEL STAT 09/09/2015 4:35 PM EDT BASIC METABOLIC PANEL STAT 09/09/2015 4:35 PM EDT XR CHEST PA AND LATERAL EMMY 09/09/2015 4:23 PM EDT EK EKG 12 LEAD STAT 09/09/2015 3:28 PM EDT documented in this encounter Results * SCANNED RHYTHM STRIPS (09/12/2015 10:10 PM EDT) Anatomical Region Laterality Modality Other 09/12/2015 10:1 0 PM EDT us Unknown Unknown IMG ECG ORDERABLES Final Result * SCANNED RADIOLOGY REPORT (09/10/2015 3:48 PM EDT) Anatomical Region Laterality Modality Other 09/10/2015 3:48 PM EDT us Unknown Unknown IMG DIAGNOSTIC IMAGING ORDERABLE S Final Result * (ABNORMAL) GLUCOSE METER POC (09/10/2015 11:11 AM EDT) Glucose Meter POC 165(H) 70 - 100 mg/dL [facility] Blood specimen (specimen) 09/10/2015 11:11 AM EDT 09/10/2015 11:11 AM EDT us Pj Bauer MD POINT OF CARE TEST ORDERABLE S Final Result [facility] [address] [facility] [place] [address] * SCANNED RHYTHM STRIPS (09/10/2015 11:06 AM EDT) Anatomical Region Laterality Modality Other 09/10/2015 11:0 6 AM EDT us Unknown Unknown IMG ECG ORDERABLES Final Result * NM MYOCARDIAL PERFUSION SPECT STRESS AND REST (09/10/2015 9:41 AM EDT) Anatomical Region Laterality Modality Nuclear Medicine 09/10/2015 8:15 AM EDT Impressions 09/10/2015 3:16 PM EDT IMPRESSIONS No evidence of myocardial ischemia or prior myocardial infarction. ?? Normal left ventricular size and function. ?? No wall motion abnormalities. ?? Narrative Procedure Note Tr Wayne MD - 09/10/2015 IMPRESSION IMPRESSIONS No evidence of myocardial ischemia or prior myocardial infarction. Normal left ventricular size and function. No wall motion abnormalities. us Silvana M Summe DO IMG NM CARDIAC ORDERABLES Final Result * ST STRESS TEST LEXISCAN (09/10/2015 9:08 AM EDT) Anatomical Region Laterality Modality Cardiac Stress T esting 09/10/2015 8:55 AM EDT Impressions 09/10/2015 9:57 AM EDT ? Exercise ECG Report ?[facility] [place] ? Interpretive Statements ? Stress Test Lexiscan Reason for Exam: chest pain Ordering Diagnosis: same Resting HR: 76 ?? Peak HR: 88 Resting B/P 125/57 ?? PeaK B/P 125/57 1. Lexiscan 0.4 mg [...] 09-10-2015 9:57:25 EDT by Tr Wayne MD Narrative Procedure Note Tr Wayne MD - 09/10/2015 IMPRESSION Exercise ECG Report [facility] [place] Interpretive Statements Stress Test Lexiscan Reason for [...] 09-10-2015 9:57:25 EDT by Tr Wayne MD us Silvana Vásquez DO IMG STRESS ORDERABLES Final Res ult * EK EKG 12 LEAD (09/10/2015 6:45 AM EDT) Anatomical Region Laterality Modality Other 09/10/2015 6:45 AM EDT Impressions 09/10/2015 6:44 PM EDT ? Stationary ECG Study ?[facility] [place] ? Interpretive Statements ? SINUS RHYTHM WITH OCCASIONAL SUPRAVENTRICULAR PREMATURE COMPLEXES SEPTAL MYOCARDIAL INFARCTION, PROBABLY OLD Electronically Signed On 09-10-2015 18:44:07 EDT by Alok Pinon MD Narrative Procedure Note Alok Pinon MD - 09/10/2015 IMPRESSION Stationary ECG Study [facility] [place] Interpretive Statements SINUS RHYTHM WITH OCCASIONAL SUPRAVENTRICULAR PREMATURE COMPLEXES SEPTAL MYOCARDIAL INFARCTION, PROBABLY OLD Electronically Signed On 09-10-2015 18:44:07 EDT by Alok Pinon MD [facility] IMG ECG ORDERABLES Final Result * DIFFERENTIAL (09/10/2015 5:56 AM EDT) [facility] Neut Percent 61.1 % [facility] Lymph Percent 27.5 % [facility] Towns Percent 7.1 % [facility] Eos Percent 3.4 % [facility] Baso Percent 0.9 % [facility] Neut# 4.3 1.8 - 7.7 x10(3)/mcL [facility] Lymph# 1.9 0.6 - 4.8 x10(3)/mcL [facility] Towns# 0.5 0.0 - 1.3 x10(3)/[facility] LAB[facility] Eos# 0.2 0.0 - 0.5 x10(3)/[facility] Baso# 0.1 0.0 - 0.2 x10(3)/[facility] Blood specimen (specimen) 09/10/2015 5:56 AM EDT 09/10/2015 6:00 AM EDT [facility] [place] [address] * (ABNORMAL) BASIC METABOLIC PANEL (09/10/2015 5:56 AM EDT) [facility] Sodium 146(H) 136 - 145 mmol/L [facility] Potassium 3.5 3.5 - 5.0 mmol/L [facility] Chloride 106 98 - 107 mmol/L [facility] Total CO2 24 22 - 29 mmol/L [facility] Anion Gap 16 7 - 16 mmol/L [facility] Calcium 9.3 8.8 - 10.2 mg/dL [facility] Glucose Lvl 145(H) 82 - 100 mg/dL [facility] BUN 20 8 - 23 mg/dL [facility] Creatinine 1.30 0.51 - 1.30 mg/dL [facility] GFR Afr Am 50 [facility] GFR Non Afr Am 41 [facility] Blood specimen (specimen) UPPER LIMB STRUCTURE / Unknown 09/10/2015 5:56 AM EDT 09/10/2015 6:[address] [facility] DO CHEMISTRY ORDERABLES Edited Res ult - Final Performing Organization Address City/[facility] Co de Phone Number [facility] [address] [place] [address] * (ABNORMAL) CBC WITH AUTO DIFF (09/10/2015 5:56 AM EDT) WBC 7.0 4.0 - 11.0 x10(3)/mcL [facility] RBC 4.48 3.80 - 5.10 x10(6)/mcL [facility] Hgb 12.7 12.0 - 15.6 gm/dL [facility] Hct 37.2 35.7 - 45.9 % [facility] MCV 83.0 82.5 - 99.8 fL [facility] MCH 28.3 27.0 - 34.3 pg [facility] MCHC 34.1 32.1 - 35.3 gm/dL [facility] RDW 16.2(H) 11.5 - 15.0 % [facility] Platelet 132(L) 144 - 423 x10(3)/mcL [facility] MPV 9.5 6.8 - 10.8 fL [facility] Blood specimen (specimen) UPPER LIMB STRUCTURE / Unknown 09/10/2015 5:56 AM EDT 09/10/2015 6:[address] [facility] DO HEMATOLOGY ORDERABLES Final Res ult Performing Organization Address [facility] Co de Phone Number [facility] [address] [place] [address] * TROPONIN-T (09/09/2015 10:41 PM EDT) Troponin-T <0.01 <=0.00 ng/mL [facility] Comment: Values > or = 0.01 ng/mL have been shown to have prognostic value. Blood specimen (specimen) 09/09/2015 10:41 PM EDT 09/09/2015 10:53 PM EDT us Elizabeth Martin MD CHEMISTRY ORDERABLES Final R esult Performing Organization Address [facility] de Phone Number [facility] [address] [place] [address] * HEMOGLOBIN A1C (09/09/2015 10:41 PM EDT) Pathologist [facility] Hgb A1c 6.1 <=7.0 % [facility] Comment: Reference Interval for Hgb A1c Hgb A1c ?Interpretation ? < 6.0 ?Non-Diabetic Range 6.0 - 7.0 ? ADA Therapeutic Target ??> 7.0 ? Action suggested Blood specimen (specimen) UPPER LIMB STRUCTURE / Unknown 09/09/2015 10:41 PM EDT 09/09/2015 10:54 PM EDT us Silvana Vásquez DO CHEMISTRY ORDERABLES Final Resu lt Performing Organization Address [facility] de Phone Number [facility] [address] [place] [address] * (ABNORMAL) ALKALINE PHOSPHATASE ISOENZYMES (09/09/2015 10:41 PM EDT) Alk Phos 182(H) 35 - 104 IU/L [facility] Residual Activity 78 % [facility] Comment: <25% Residual Activity suggests bone origin. >35% Residual Activity suggests liver origin. Blood specimen (specimen) UPPER LIMB STRUCTURE / Unknown 09/09/2015 10:41 PM EDT 09/09/2015 10:54 PM EDT us Silvana Vásquez DO CHEMISTRY ORDERABLES Edited Res ult - Final Performing Organization Address [facility] Co de Phone Number [facility] [address] [place] [address] * (ABNORMAL) GAMMA GLUTAMYL TRANSFERASE (09/09/2015 10:41 PM EDT) GGT 49(H) 5 - 36 IU/L [facility] Blood specimen (specimen) UPPER LIMB STRUCTURE / Unknown 09/09/2015 10:41 PM EDT 09/09/2015 10:53 PM EDT us Silvana Vásquez DO CHEMISTRY ORDERABLES Final Resu lt Performing Organization Address [facility] de Phone Number [facility] [address] [place] [address] * (ABNORMAL) LIPID SCREEN (09/09/2015 10:41 PM EDT) Cholesterol 177 <=200 mg/dL [facility] Comment: < 200 ?Desirable 200 - 239 ? Borderline High >= 240 ?High Triglyceride 375(H) <=150 mg/dL [facility] Comment: < 150 ? Normal 150 - 199 ?Borderline High 200 - 499 ?High ??>= 500 ? Very High HDL 35(L) >=40 mg/dL [facility] Comment: ?? > 60 ?Optimal 40 - 60 ?Acceptable ?? < 40 ?Low LDL Calculated 67 <=100 mg/dL [facility] Comment: ??< 100 ?Optimal 100 - 129 ? Near or above optimal 130 - 159 ? Borderline High 160 - 189 ? High >= 190 ?Very High Blood specimen (specimen) UPPER LIMB STRUCTURE / Unknown 09/09/2015 10:41 PM EDT 09/09/2015 10:53 PM EDT [facility] Susan Vásquez DO CHEMISTRY ORDERABLES Final Resu lt Performing Organization Address [facility] de Phone Number [facility] [address] [place] [address] * (ABNORMAL) HEPATIC FUNCTION PANEL (09/09/2015 10:41 PM EDT) Total Protein 7.3 6.4 - 8.3 gm/dL [facility] Albumin 4.0 3.2 - 4.6 gm/dL [facility] Bili Direct <0.2 0.0 - 0.3 mg/dL [facility] Bili Total 0.2 0.1 - 1.3 mg/dL [facility] AST 21 <=40 IU/L [facility] ALT 15 <=41 IU/L [facility] Alk Phos 182(H) 35 - 104 IU/L [facility] Blood specimen (specimen) UPPER LIMB STRUCTURE / Unknown 09/09/2015 10:41 PM EDT 09/09/2015 10:53 PM EDT Silvana [facility] DO CHEMISTRY ORDERABLES Final Resu lt Performing Organization Address [facility] de Phone Number [facility] [address] [place] [address] * THYROID STIMULATING HORMONE (09/09/2015 10:41 PM EDT) TSH 3.550 0.270 - 4.200 mcIU/mL [facility] Blood specimen (specimen) UPPER LIMB STRUCTURE / Unknown 09/09/2015 10:41 PM EDT 09/09/2015 10:53 PM EDT [facility] CHEMISTRY ORDERABLES Final Resu lt Performing Organization Address [facility] Co de Phone Number [facility] [address] [place] [address] * (ABNORMAL) GLUCOSE METER POC (09/09/2015 10:07 PM EDT) [facility] Glucose Meter POC 129(H) 70 - 100 mg/dL [facility] Blood specimen (specimen) 09/09/2015 10:07 PM EDT 09/09/2015 10:07 PM EDT us Pj Bauer MD POINT OF CARE TEST ORDERABLE S Final Result Performing Organization Address [facility] [place] [address] * TROPONIN-T (09/09/2015 7:05 PM EDT) [facility] Troponin-T <0.01 <=0.00 ng/mL [facility] Comment: Values > or = 0.01 ng/mL have been shown to have prognostic value. Blood specimen (specimen) 09/09/2015 7:05 PM EDT 09/09/2015 7:12 PM EDT Narrative [facility] - 09/09/2015 7:35 PM EDT due 18:35 us Elizabeth Martin MD CHEMISTRY ORDERABLES Final R esult Performing Organization Address [facility] Co de Phone Number [facility] [address] [place] [address] * DIFFERENTIAL (09/09/2015 4:35 PM EDT) [facility] Signature Neut Percent 66.1 % [facility] Lymph Percent 23.9 % [facility] Towns Percent 6.8 % [facility] Eos Percent 2.8 % [facility] Baso Percent 0.4 % [facility] Neut# 5.9 1.8 - 7.7 x10(3)/mcL [facility] Lymph# 2.2 0.6 - 4.8 x10(3)/mcL [facility] Towns# 0.6 0.0 - 1.3 x10(3)/mcL [facility] Eos# 0.3 0.0 - 0.5 x10(3)/mcL [facility] Baso# 0.0 0.0 - 0.2 x10(3)/[facility] Blood specimen (specimen) 09/09/2015 4:35 PM EDT 09/09/2015 4:38 PM EDT us Elizabeth Martin MD HEMATOLOGY ORDERABLES Final Result Performing Organization Address [facility] [place] [address] * (ABNORMAL) HEPATIC FUNCTION PANEL (09/09/2015 4:35 PM EDT) Total Protein 7.5 6.4 - 8.3 gm/dL [facility] Albumin 4.0 3.2 - 4.6 gm/dL [facility] Bili Direct <0.2 0.0 - 0.3 mg/dL [facility] Bili Total 0.2 0.1 - 1.3 mg/dL [facility] AST 13 <=40 IU/L [facility] ALT 13 <=41 IU/L [facility] Alk Phos 182(H) 35 - 104 IU/L [facility] Blood specimen (specimen) UPPER LIMB STRUCTURE / Unknown 09/09/2015 4:35 PM EDT 09/09/2015 4:38 PM EDT us Elizabeth Martin MD CHEMISTRY ORDERABLES Final R esult Performing Organization Address [facility] Co de Phone Number [facility] [address] [place] [address] * LIPASE LEVEL (09/09/2015 4:35 PM EDT) Lipase Lvl 24 13 - 60 IU/L [facility] Blood specimen (specimen) UPPER LIMB STRUCTURE / Unknown 09/09/2015 4:35 PM EDT 09/09/2015 4:38 PM EDT Elizabeth Martin MD CHEMISTRY ORDERABLES Final R esult Performing Organization Address [facility] Co de Phone Number [facility] [address] [place] [address] * TROPONIN-T (09/09/2015 4:35 PM EDT) Pathologist [facility] Troponin-T <0.01 <=0.00 ng/mL [facility] Comment: Values > or = 0.01 ng/mL have been shown to have prognostic value. Blood specimen (specimen) 09/09/2015 4:35 PM EDT 09/09/2015 4:38 PM EDT Elizabeth Martin MD CHEMISTRY ORDERABLES Final R esult Performing Organization Address [facility] [place] [address] * (ABNORMAL) BASIC METABOLIC PANEL (09/09/2015 4:35 PM EDT) [facility] Sodium 145 136 - 145 mmol/L [facility] Potassium 4.4 3.5 - 5.0 mmol/L [facility] Chloride 105 98 - 107 mmol/L [facility] Total CO2 25 22 - 29 mmol/L [facility] Anion Gap 15 7 - 16 mmol/L [facility] Calcium 9.3 8.8 - 10.2 mg/dL [facility] Glucose Lvl 119(H) 82 - 100 mg/dL [facility] BUN 26(H) 8 - 23 mg/dL [facility] Creatinine 1.42(H) 0.51 - 1.30 mg/dL [facility] GFR Afr Am 45 [facility] GFR Non Afr Am [address] [facility] Blood specimen (specimen) UPPER LIMB STRUCTURE / Unknown 09/09/2015 4:35 PM EDT 09/09/2015 4:38 PM EDT Elizabeth Martin MD CHEMISTRY ORDERABLES Edited Result - Final Performing Organization Address [facility] de Phone Number [facility] [address] [place] [address] * (ABNORMAL) CBC WITH AUTO DIFF (09/09/2015 4:35 PM EDT) [facility] Signature WBC 9.0 4.0 - 11.0 x10(3)/mcL [facility] RBC 4.48 3.80 - 5.10 x10(6)/mcL [facility] Hgb 12.5 12.0 - 15.6 gm/dL [facility] Hct 37.7 35.7 - 45.9 % [facility] MCV 84.2 82.5 - 99.8 fL [facility] MCH 27.8 27.0 - 34.3 pg [facility] MCHC 33.1 32.1 - 35.3 gm/dL [facility] RDW 16.0(H) 11.5 - 15.0 % [facility] Platelet 164 144 - 423 x10(3)/mcL [facility] MPV 9.2 6.8 - 10.8 fL [facility] Blood specimen (specimen) UPPER LIMB STRUCTURE / Unknown 09/09/2015 4:35 PM EDT 09/09/2015 4:38 PM EDT us Elizabeth Martin MD HEMATOLOGY ORDERABLES Final Result Performing Organization Address [facility] de Phone Number [facility] [address] [place] [address] * XR CHEST PA AND LATERAL (09/09/2015 4:23 PM EDT) Anatomical Region Laterality Modality Chest Radiographic Whit ging 09/09/2015 4:23 PM EDT Impressions 09/09/2015 4:40 PM EDT IMPRESSION: Stable chest. Narrative 09/09/2015 4:40 PM EDT TWO VIEWS OF THE CHEST 09/09/2015 HISTORY: Chest pain. COMPARISON: April 01, 2015. FINDINGS: The heart is normal in size. ??The lungs are clear of infiltrate. ??The costophrenic angles are within normal limits. ??There is no pleural effusion. ??No pneumothorax. ?? Procedure Note Beni Granado MD - 09/09/2015 TWO VIEWS OF THE CHEST 09/09/2015 HISTORY: Chest pain. COMPARISON: April 01, 2015. FINDINGS: The heart is normal in size. The lungs are clear of infiltrate.The costophrenic angles are within normal limits. There is no pleuraleffusion. No pneumothorax. IMPRESSION: Stable chest. us Elizabeth Martin MD IMG DIAGNOSTIC IMAGING ORDER DEBBIE Final Result * EK EKG 12 LEAD (09/09/2015 3:28 PM EDT) Anatomical Region Laterality Modality Other 09/09/2015 3:28 PM EDT Impressions 09/10/2015 12:18 AM EDT ? Stationary ECG Study ?[facility] ? Interpretive Statements ? SINUS RHYTHM WITH OCCASIONAL VENTRICULAR PREMATURE COMPLEXES LOW QRS VOLTAGE IN PRECORDIAL LEADS INFERIOR MYOCARDIAL INFARCTION, PROBABLY OLD ANTEROSEPTAL MYOCARDIAL INFARCTION, PROBABLY OLD Electronically Signed On 09-10-2015 0:18:33 EDT by Alok Pinon MD Narrative Procedure Note Alok Pinon MD - 09/10/2015 IMPRESSION Stationary ECG Study [facility] Interpretive Statements SINUS RHYTHM WITH OCCASIONAL VENTRICULAR PREMATURE COMPLEXES LOW QRS VOLTAGE IN PRECORDIAL LEADS INFERIOR MYOCARDIAL INFARCTION, PROBABLY OLD ANTEROSEPTAL MYOCARDIAL INFARCTION, PROBABLY OLD Electronically Signed On 09-10-2015 0:18:33 EDT by Alok Pinon MD us Elizabeth Martin MD IMG ECG ORDERABLES Final Res ult documented in this encounter Visit Diagnoses Diagnosis Chest pain at rest- Primary Chest pain, unspecified Chest pain at rest Chest pain, unspecified JACK (acute kidney injury) (HCC) Acute kidney failure, unspecified Essential hypertension Unspecified essential hypertension History of CVA (cerebrovascular accident) Transient ischemic attack (TIA), and cerebral infarction without residual deficits Weakness of left leg Other musculoskeletal symptoms referable to limbs Elevated alkaline phosphatase level Other nonspecific abnormal serum enzyme levels Coronary artery disease involving te-moak coronary artery of te-moak heart documented in this encounter Administered Medications Inactive Administered Medications - up to 1 most recent administrations Medication Order MAR Action Action Date Dose Rate Site 0.9 % NaCl infusion Intravenous, at 100 mL/hr, CONTINUOUS, Starting on Wed09/09/15 at 1999, Until Wed09/10/15 at 2138 New Bag 09/09/2015 10:08 PM EDT 100 mL/hr amitriptyline (ELAVIL) tablet 75 mg 75 mg, Oral, NIGHTLY, First dose on Wed09/09/15 at 2130, Until Discontinued Given 09/09/2015 10:04 PM EDT 75 mg ARIPiprazole (ABILIFY) tablet 30 mg 30 mg, Oral, DAILY, First dose (after last modification) on Wed09/09/15 at 2215, Until Discontinued Given 09/10/2015 11:13 AM EDT 30 mg ferrous sulfate tablet 325 mg 325 mg, Oral, 2 TIMES DAILY WITH MEALS, First dose on Wed09/09/15 at 1999, Until Discontinued Given 09/10/2015 11:13 AM EDT 325 mg hydrALAZINE (APRESOLINE) injection 10 mg 10 mg, Intravenous, EVERY 6 HOURS PRN, Starting on Wed09/09/15 at 2007, Until Wed09/10/15 at 8, High Blood Pressure, SBP>160 or DBP >90 Given 09/09/2015 8:26 PM EDT 10 mg hydrOXYzine (VISTARIL) capsule 25 mg 25 mg, Oral, 2 TIMES DAILY, First dose (after last modification) on Wed09/09/15 at 2130, Until Discontinued, Therapeutic Interchange for hydrOXYzine hcl 50mg tab Given 09/10/2015 11:13 AM EDT 25 mg melatonin tablet 5 mg 5 mg, Oral, NIGHTLY PRN, Starting on Wed09/10/15 at 0117, Until Wed09/10/15 at 2138, Sleep Given 09/10/2015 2:49 AM EDT 5 mg miconazole (MICATIN) 2 % powder Topical, EVERY 12 HOURS SCHEDULED (2 times per day), First dose on Wed09/09/15 at 2145, Until Discontinued, Application site: Groin Given 09/10/2015 11:15 AM EDT NIFEdipine (PROCARDIA XL) CR tablet 90 mg 90 mg, Oral, DAILY, First dose on Wed09/09/15 at 2145, Until Discontinued Given 09/10/2015 11:13 AM EDT 90 mg pantoprazole (PROTONIX) tablet 40 mg 40 mg, Oral, 2 TIMES DAILY, First dose on Wed09/09/15 at 2100, Until Discontinued, Do not crush or chew Given 09/10/2015 11:13 AM EDT 40 mg regadenoson (LEXISCAN) injection 0.4 mg 0.4 mg, Intravenous, ONCE, 1 dose, On Wed09/10/15 at 0915, Echo Meds Given 09/10/2015 8:57 AM EDT 0.4 mg risperiDONE (RisperDAL) tablet 2 mg 2 mg, Oral, NIGHTLY, First dose on Wed09/09/15 at 2130, Until Discontinued Given 09/09/2015 10:06 PM EDT 2 mg roPINIRole (REQUIP) tablet 1.5 mg 1.5 mg, Oral, ONCE, 1 dose, On Wed09/09/15 at 2215 Given 09/09/2015 10:15 PM EDT 1.5 mg sodium chloride 0.9% syringe Intravenous, ONCE PRN, 1 dose, Starting on Wed09/10/15 at 0801, Until Wed09/10/15 at 0802, Line Care, Flush every shift or after IV medication, Radiology Given 09/10/2015 8:02 AM EDT 10 mL [id number] (MYOVIEW) injection 10-45 ernesto Curie 10-45 millicurie, Intravenous, ONCE PRN, 1 dose, Starting on Wed09/10/15 at 0801, Until Wed09/10/15 at 2138, Radiology Procedure, Administration dose must be within 10% of the ordered dose for radiopharmaceutical medications., Radiology Given 09/10/2015 9:00 AM EDT 33.4 millicuries [id number] (MYOVIEW) injection 10-45 ernesto Curie 10-45 millicurie, Intravenous, ONCE PRN, 1 dose, Starting on Wed09/10/15 at 0801, Until Wed09/10/15 at 0801, Radiology Procedure, Administration dose must be within 10% of the ordered dose for radiopharmaceutical medications., Radiology Given 09/10/2015 8:01 AM EDT 12.9 millicuries venlafaxine (EFFEXOR-XR) XR capsule 150 mg 150 mg, Oral, ONCE, 1 dose, On Wed09/09/15 at 2215 Given 09/09/2015 10:20 PM EDT 150 mg documented in this encounter Discontinued Medications Medication Sig Discontinue Reason Start Date End Da te HYDROcodone-acetaminop hen (NORCO) 5-325 mg Oral Tablet Take 1 Tab by mouth every 6 hours as needed for Pain. Removed During Admission Medication Review 10/22/2014 09/09/2015 METFORMIN HCL (METFORMIN ORAL) Take by mouth. Removed During Admission Medication Review 09/09/2015 pioglitazone (ACTOS) 15 mg Oral Tablet Take 15 mg by mouth daily. Stop Taking at Discharge 09/09/2015 documented as of this encounter Historical Medications * This list may reflect changes made after this encounter. acetaminophen 325 mg Oral Tab Take 650 mg by mouth every 4 hours as needed for Pain. Pt takes 1 to 2 tabs as needed 10/06/2018 NIFEdipine (PROCARDIA XL) 90 mg Oral Tablet Extended Rel 24 hr Take 90 mg by mouth daily. 12/26/2015 pioglitazone (ACTOS) 15 mg Oral Tablet Take 15 mg by mouth daily. 09/09/2015 glipiZIDE (GLUCOTROL) 10 mg Oral Tablet Take 10 mg by mouth 2 times daily (with meals). 09/21/2017 sitaGLIPtin (JANUVIA) 100 mg Oral Tablet Take 100 mg by mouth daily. 02/23/2017 amitriptyline (ELAVIL) 75 mg Oral Tablet Take 75 mg by mouth nightly. 09/23/2016 added in this encounter Active and Recently Administered Medications Times are shown in EDT. Scheduled Medication Order 09/08/2015 09/09/2015 09/10/2015 amitriptyline (ELAVIL) tablet 75 mg (CANCELED) 75 mg, Oral, NIGHTLY, First dose on Wed09/09/15 at 2130, Until Discontinued 2203 (Given - Provider: Marcos Flores RN) ARIPiprazole (ABILIFY) tablet 30 mg (CANCELED) 30 mg, Oral, DAILY, First dose (after last modification) on Wed09/09/15 at 2215, Until Discontinued 2229 (Given - Provider: Marcos Flores RN) 1113 (Given - Provider: Richard Navas RN) ferrous sulfate tablet 325 mg (CANCELED) 325 mg, Oral, 2 TIMES DAILY WITH MEALS, First dose on Wed09/09/15 at 2000, Until Discontinued 2203 (Given - Provider: Marcos Flores RN) 111 (Given - Provider: Richard Navas RN) hydrOXYzine (VISTARIL) capsule 25 mg (CANCELED) 25 mg, Oral, 2 TIMES DAILY, First dose (after last modification) on Wed09/09/15 at 2130, Until Discontinued, Therapeutic Interchange for hydrOXYzine hcl 50mg tab 2204 (Given - Provider: Marcos Flores RN) 111 (Given - Provider: Richard Navas RN) miconazole (MICATIN) 2 % powder (CANCELED) Topical, EVERY 12 HOURS SCHEDULED (2 times per day), First dose on Wed09/09/15 at 2145, Until Discontinued, Application site: Groin 2240 (Given - Provider: Marcos Flores RN) 111 (Given - Provider: Richard Navas RN) NIFEdipine (PROCARDIA XL) CR tablet 90 mg (CANCELED) 90 mg, Oral, DAILY, First dose on Wed09/09/15 at 2145, Until Discontinued 2204 (Given - Provider: Marcos Flores RN) 111 (Given - Provider: Richard Navas RN) pantoprazole (PROTONIX) tablet 40 mg (CANCELED) 40 mg, Oral, 2 TIMES DAILY, First dose on Wed09/09/15 at 2100, Until Discontinued, Do not crush or chew 2204 (Given - Provider: Marcos Flores RN) 1113 (Given - Provider: Richard Navas RN) regadenoson (LEXISCAN) injection 0.4 mg (COMPLETED) 0.4 mg, Intravenous, ONCE, 1 dose, On Wed09/10/15 at 0915, [place] [facility] 0857 (Given - Provid er: Kandice Fernandez RN) risperiDONE (RisperDAL) tablet 2 mg (CANCELED) 2 mg, Oral, NIGHTLY, First dose on Wed09/09/15 at 2130, Until Discontinued 2205 (Given - Provider: Marcos Flores RN) roPINIRole (REQUIP) tablet 1.5 mg (COMPLETED) 1.5 mg, Oral, ONCE, 1 dose, On Wed09/09/15 at 2215 2215 (Given - Provider: Marcos Flores RN) venlafaxine (EFFEXOR-XR) XR capsule 150 mg (COMPLETED) 150 mg, Oral, ONCE, 1 dose, On Wed09/09/15 at 2215 2220 (Given - Provider: Marcos Flores RN) Continuous Medication Order 09/08/2015 09/09/2015 09/10/2015 0.9 % NaCl infusion (CANCELED) Intravenous, at 100 mL/hr, CONTINUOUS, Starting on Wed09/09/15 at 2000, Until Wed09/10/15 at 2138 2208 (New Bag - Provider: Marcos Flores RN) 0113 (Stopped - Provider: Marcos Flores RN - Comment: loss of IV access) PRN Medication Order 09/08/2015 09/09/2015 09/10/2015 hydrALAZINE (APRESOLINE) injection 10 mg (CANCELED) 10 mg, Intravenous, EVERY 6 HOURS PRN, Starting on Wed09/09/15 at 2008, Until Wed09/10/15 at 2138, High Blood Pressure, SBP>160 or DBP >90 2025 (Given - Provider: Marcos Flores, ROLF) melatonin tablet 5 mg (CANCELED) 5 mg, Oral, NIGHTLY PRN, Starting on Wed09/10/15 at 0117, Until Wed09/10/15 at 2138, Sleep 0249 (Given - Provider: Marcos Flores RN) sodium chloride 0.9% syringe (COMPLETED) Intravenous, ONCE PRN, 1 dose, Starting on Wed09/10/15 at 0801, Until Wed09/10/15 at 0802, Line Care, Flush every shift or after IV medication, Radiology 801 (Given - Provider: Jackeline Dove, ATTENDING PATHOLOGIST) [id number] (MYOVIEW) injection 10-45 ernesto Curie (CANCELED) 10-45 millicurie, Intravenous, ONCE PRN, 1 dose, Starting on Wed09/10/15 at 0801, Until Wed09/10/15 at 2138, Radiology Procedure, Administration dose must be within 10% of the ordered dose for radiopharmaceutical medications., Radiology 09 (Given - Provider: Jackeline Dove, ATTENDING PATHOLOGIST) [id number] (MYOVIEW) injection 10-45 ernesto Curie (COMPLETED) 10-45 millicurie, Intravenous, ONCE PRN, 1 dose, Starting on Wed09/10/15 at 0801, Until Wed09/10/15 at 0801, Radiology Procedure, Administration dose must be within 10% of the ordered dose for radiopharmaceutical medications., Radiology 800 (Given - Provider: Jackeline Dove, ATTENDING PATHOLOGIST) documented in this encounter Orders Medications Ordered That Gaurav ht Not Have Been Administered Count Last Ordered Date First Ordered Date insulin aspart (NovoLOG) inj ection 1-5 Units 2 09/10/2015 09/09/2015 acetaminophen (TYLENOL) tablet 650 mg 1 06/2015 ARIPiprazole (ABILIFY) tablet 20 mg 1 09/08 ARIPiprazole (ABILIFY) tablet 30 mg 1 09/08 dextrose 50 % solution 25 mL 1 09/09/2015 glucagon (human recombinant) (GLUCAGEN) injection 1 mg 1 09/09/2015 hydrOXYzine (VISTARIL) capsule 50 mg 06/2015 miconazole (MICATIN) 2 % powder 1 6 roPINIRole (REQUIP) tablet 0.5 mg 1 016 roPINIRole (REQUIP) tablet 1.5 mg 1 016 venlafaxine (EFFEXOR-XR) XR capsule 150 mg 2 09/09/2015 Nursing Count Last Ordered Date First Orde red Date ADMISSION 4 09/09/2015 ED ENTER ADMISSION ORDER 1 09/09/2015 NURSING COMMUNICATION 1 09/09/2015 Consult Count Last Ordered Date First Orde red Date IP CONSULT TO SOCIAL WORK 1 09/09/2015 Transfer Count Last Ordered Date First Orde red Date BED REQUEST 2 09/09/2015 documented in this encounter Care Teams Designer Architect Relationship Specialty Start Date End Date Alessandra Trevino August, [address] [facility] [address] [place] [address] PCP - General Nurse Practitioner-Family 08/29/14 09/20/16 documented as of this encounter
--- OUTSIDE RECORDS SUMMARY | 2024-02-16 15:02 | XMS_ITS | Encounter Summary ---
Author Organization [place] [address] Care Team Providers Care Finish Photographer Name Role Phone Alessandra Trevino August Primary Care Provider + Reason for Visit * Reason Comments Shortness of Breath Pt is a resident at [facility] in [facility], she c/o feeling SOB, chest tightness and jaw pain. On ED arrival pt is awake and alert c/o L sided jaw pain, chest tightness. 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); Acute renal failure, unspecified acute renal failure type (HCC) Discharge Disposition: Home Health Care [facility] Social History Tobacco Use Types Packs/Day Years [...] Sign Reading Time Taken Comments Blood Pressure 135/83 12/28/2015 4:42 PM EDT Pulse 110 12/28/2015 4:42 PM EDT Temperature 36.7 ??C (98.1 ??F) 12/28/2015 4:42 PM ED T Respiratory Rate 20 12/28/2015 4:42 PM EDT Oxygen Saturation 96% 12/28/2015 4:42 PM EDT Inhaled Oxygen Concentration - - Weight 101.6 kg (224 lb) 12/26/2015 12:45 PM EDT Height 174 cm (5' 8.5 ) 12/26/2015 12:45 PM EDT Body Mass Index 33.56 12/26/2015 12:45 PM EDT documented in this encounter Discharge Summaries * Campbell Huston MD - 12/28/2015 11:[address] [facility] Discharge Summary Patient Name: Faby Palm : 1950 Admit Date: 12/26/2015 Discharge Date: 12/28/2015 Admitting Physician: Campbell Huston MD Discharge Physician: Campbell Huston MD Reason for Hospitalization: Active Hospital Problems Angina pectoris (HCC) *Typical atrial flutter (HCC) Acute on chronic diastolic (congestive) heart failure (HCC) JACK (acute kidney injury) (HCC) Essential hypertension History of CVA (cerebrovascular accident) Hospital Course/Significant Findings: patient was admitted for evaluation of chest pain and palpitations, she was found the have A flutter 2:1. Placed on IV heparin and BB, seen by cardiology and EP.She had mild JACK on CKD with improved with IVF. She is going to [facility] for LHC in 12/28 and ablation next Wednesday with EP. Stable for discharge Procedures Performed: None Consults: Treatment Team: Consulting Physician: Kaushik Perea MD Consulting Physician: Mita Tee MD Discharge Exam: NAD, comfortable Clear lungs, no wheezing IRRR Soft, NT +BS No LE edema Discharge Diagnoses: Active Hospital Problems Diagnosis ??? *Typical atrial flutter (HCC) ??? Angina pectoris (HCC) ??? Acute on chronic diastolic (congestive) heart failure (HCC) ??? JACK (acute kidney injury) (HCC) ??? Essential hypertension ??? History of CVA (cerebrovascular accident) Hx of depression Condition at Discharge: stable Disposition: [facility] Discharge Medications:: Medication List ASK your doctor about these medications acetaminophen 325 mg Tab Dose: 650 mg Refills: 0 Commonly known as: TYLENOL amitriptyline 75 mg Tab Dose: 75 mg Refills: 0 Commonly known as: ELAVIL ARIPiprazole 10 mg Tab Dose: 30 mg Refills: 0 Commonly known as: ABILIFY aspirin 81 mg Tbec Dose: 81 mg Refills: 0 ferrous sulfate 325 mg (65 mg iron) [...] Commonly known as: PROTONIX 40 mg, Oral, BID risperiDONE 1 mg Tab Dose: 2 mg Refills: 0 Commonly known as: RisperDAL roPINIRole 0.5 mg Tab Dose: 1.5 mg Refills: 0 Commonly known as: REQUIP sitaGLIPtin 100 mg Tab Dose: 100 mg Refills: 0 Commonly known as: JANUVIA torsemide 10 mg Tab Dose: 10 mg Refills: 0 Commonly known as: DEMADEX venlafaxine 150 mg Cp24 Dose: 300 mg Refills: 0 Commonly known as: EFFEXOR-XR Spent > 30 mns on discharge planing Signed: Campbell Huston MD 12/28/2015 11:53 AM documented in this encounter Medications at Time [...] mouth daily. 30 Tab 2 01/02/2016 06/24/2016 torsemide (DEMADEX) 10 mg Oral Tablet Take 10 mg by mouth 2 times daily. 01/02/2016 venlafaxine (EFFEXOR-XR) 150 mg Oral Capsule, Sust. Release 24 hr Take 300 mg by mouth nightly. 10/15/2016 documented as of this encounter Discharge Disposition Disposition Code Departure Means Destination Home Health Care [facility] documented in this encounter Progress Notes * Leida Miller RN - 12/28/2015 4:27 PM EDT Pt being transferred to [place] for angio procedure tomorrow morning 12/29/15. Report called to TCU 5D [facility]. Pt's son Elias called & updated on pt's transfer with room number. Bed in lowest position, nonskid foot wear on, bed alarm on & call light within reach. Will continue to monitor. * Manju Chowdhury, [facility] - 12/28/2015 3:41 PM EDT S: Faby Palm is a(n) 65 y.o. female with diagnosis of of Aflutter (CHADS2 = 5 HTN, CHF, DM and CVA). Admitted through Ed with SOB associated with palpitations and radiating chest pain. Pharmacy managing anticoagulation therapy. Bleeding signs and symptoms: none- noted hx of PUD in 03/2015 O: Most Recent Labs: Recent Labs 12/26/15 1314 12/27/15 0529 12/28/15 0405 WBC 9.9 6.5 6.8 HGB 13.0 12.1 12.0 HCT 38.9 36.3 35.8 PLT 203 154 144 Recent Labs 12/26/15 1907 12/27/15 2258 12/28/15 0651 12/28/15 1454 INR 1.02 -- -- 1.08 -- HEPARINLEVEL -- < > 0.92* 0.92* 0.61 PTT 28.2 -- -- -- -- < > = values in this interval not displayed. Recent Labs 12/26/15 1314 12/26/15 1525 12/26/15 1907 12/27/15 0529 12/27/15 0958 12/28/15 0405 TROPT <0.01 <0.01 <0.01 -- -- -- BUN 41* -- 41* 37* 37* 24* CREATININE 1.96* -- 2.04* 1.62* 1.59* 1.16 Weight: 224 lb (101.6 kg) A/P: Physician orders and progress notes reviewed. Patient to be transported to [facility] for angiogram tomorrow. Hgb/Hct are stable. Anti Xa today at 1454 = 0.61, first therapeutic level since rate adjustment. Will continue current rate of 950 units/h. Will follow pertinent lab parameters in 6 hours and adjust for goal (anti-Xa 0.3 - 0.7 unit/mL). Manju Chowdhury, PharmKendrick * Kaushik Perea MD - 12/28/2015 3:05 PM EDT [facility] Patient: Faby Palm LOS: 2 days SUBJECTIVE: The patient has no cardiac complaints. REVIEW OF SYSTEMS: NEGATIVE FOR: chest pain, dyspnea, palpitations, dizziness, syncope, edema POSITIVE FOR: See subjective. Review of systems is otherwise negative. MEDICATIONS: Scheduled Medications: ??? ARIPiprazole 30 mg Oral Daily ??? aspirin 325 mg Oral Daily ??? famotidine 20 mg Intravenous Once ??? ferrous sulfate 325 mg Oral BID WM ??? gabapentin 100 mg Oral Nightly ??? insulin aspart 1-10 Units Subcutaneous QID WM ??? linagliptin 5 mg Oral Daily ??? metoprolol 50 mg Oral BID ??? nitroGLYCERIN 1 Inch Topical 4 times per day ??? pantoprazole 40 mg Oral BID ??? risperiDONE 2 mg Oral Nightly ??? roPINIRole 1.5 mg Oral Nightly ??? sodium chloride 0.9% 10 mL Intravenous 3 times per day ??? venlafaxine 300 mg Oral Nightly Continuous Infusions: ??? heparin (porcine) 950 Units/hr (12/28/15 1138) PRN Medications: acetaminophen, acetaminophen OR acetaminophen, dextrose, glucagon (human recombinant), HYDROcodone-acetaminophen, ondansetron OR ondansetron, sodium chloride 0.9%, sodium chloride 0.9% PHYSICAL EXAMINATION: Vitals: 12/28/15 1120 BP: (!) 146/99 Pulse: 95 Resp: 22 Temp: 98.1 ??F (36.7 ??C) SpO2: 98% Temp (24hrs), Av.5 ??F (36.4 ??C), Min:97.3 ??F (36.3 ??C), Max:98.1 ??F (36.7 ??C) Weight: 224 lb (101.6 kg) Intake/Output Summary (Last 24 hours) at 12/28/15 1505 Last data filed at 12/28/15 1309 Gross per 24 hour Intake 4135.7 ml Output 0 ml Net 4135.7 ml CONSTITUTIONAL: No apparent distress. Alert and oriented. EYES: Gaze is conjugate. Ptosis is absent. EARS, NOSE, MOUTH, THROAT: Oropharynx is clear. Nose is midline. NECK: Thyromegaly is absent. Trachea is midline. Masses are absent. RESPIRATORY: Respiratory effort is normal. Wheezes are absent. Rales are absent. Rhonchi are absent. CARDIOVASCULAR: Heart rate is noted above. Rhythm is irregular. Murmurs are absent. Rubs are absent. S1 and S2 normal. S3 or S4 are absent. Pulses are normal. Jugular venous pressure is normal. Edema is absent. Carotid Bruits are absent. GASTROINTESTINAL: Bowel sounds are normal. Hepatomegaly is absent. Spleenomegaly is absent. Abdomen is soft and non tender. MUSCULOSKELETAL: Clubbing is absent. Cyanosis is absent. SKIN: Rashes are visually absent. Turgor is normal. Warm and dry. NEUROLOGICAL: Grossly nonfocal. PSYCHIATRIC: Mood is normal. Affect is flat LABORATORY AND STUDIES: Lab Results Component Value Date WBC 6.8 12/28/2015 HGB 12.0 12/28/2015 HCT 35.8 12/28/2015 MCV 87.7 12/28/2015 PLT 144 12/28/2015 Lab Results Component Value Date NA 141 12/28/2015 K 4.2 12/28/2015 CL 103 12/28/2015 CO2 27 12/28/2015 BUN 24 (H) 12/28/2015 CREATININE 1.16 12/28/2015 CALCIUM 8.4 (L) 12/28/2015 GLU 134 (H) 12/28/2015 Lab Results Component Value Date INR 1.08 12/28/2015 Lab Results Component Value Date ALKPHOS 182 (H) 09/09/2015 ALT 15 09/09/2015 AST 21 09/09/2015 PROT 7.3 09/09/2015 LABBILI 0.2 09/09/2015 Lab Results Component Value Date LIPASE 24 09/09/2015 No results found for: TROPONINT Lab Results Component Value Date BNP 1172 (H) 12/26/2015 No results found for: SPECGRAV, UAPROTEIN, BLOODU, NITRITE, LEUKOCYTESUR, WBCUA, RBCUA No results found for: PH, PCO2, PO2, HCO3, TCO2, BASEEXCESS, O2SAT, INSPIREDO2, SPECIMENTYPE IMAGING: Scanned Rhythm Strips Result Date: 12/28/2015 Ordered by an unspecified provider. ACTIVE PROBLEM LIST: Active Hospital Problems Diagnosis ??? *Typical atrial flutter (HCC) ??? Angina pectoris (HCC) ??? Acute on chronic diastolic (congestive) heart failure (HCC) ??? JACK (acute kidney injury) (HCC) ??? Essential hypertension ??? History of CVA (cerebrovascular accident) ASSESSMENT AND PLAN: This is a 65 y.o. female who was admitted on 12/26/2015 and has the following issues: Chest pain None current Per Dr Perea note,pt wished to proceed with angiogram To be transported to [facility] Jody Tee on case Recommended CTI flutter ablation On lopressor for rate control Rate varies 90-119 TSH normal On heparin infusion [id number] HX CVA HTN 106-146 sys JACK Cr 1.16 Hx of schizophrenia To be transported to [facility]. Further per Dr Perea I personally examined this patient. Pt was seen in conjunction with a mid-level provider. No cp No sob. CVS-s1,s2 irr. RS- no rales or rhonchi. Cr improves. Stop IV fluids. I discussed with patient the indication for coronary angiography. The risks of cath, not limited todeath, bleeding, infection, heart attack, stoke, damage to blood vessels, kidney failure explained. EP consult appreciated. * Ela Isbell - 12/28/2015 2:54 PM EDT [facility] TO BE P/U @ 7 - 7:30 PM 12/28/2015. ARRIVE AT [facility] 5 D, ROOM 5411 FOR PROCEDURE TOMORROW, 12/29/2015. * Destini Marquez RN - 12/28/2015 4:32 AM EDT Uneventful shift. Patient a&o x4 throughout shift. VS stable, on room air, pain managed with medication per eMAR. Patient kept NPO after midnight in preparation for upcoming procedure. Side railsup x2, call light within reach, bed in lowest position. Educated patient to call for assistance. Bed alarm in use. Will continue to monitor. 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 Bed in lowest position, non-skid socks in place, bedside table close, and call light within reach. * Campbell Huston MD - 12/27/2015 1:20 PM EDT Being followed for JACK on CKD, Aflutter, chest pain Feels ok, no more chest pain, no sob No fever PE Visit Vitals ??? BP 106/67 (BP Location: Right arm, Patient Position: Semi Fowlers) ??? Pulse 91 ??? Temp 97.1 ??F (36.2 ??C) (Oral) ??? Resp 16 ??? Ht 5' 8.5 (1.74 m) ??? Wt 224 lb (101.6 kg) ??? SpO2 100% ??? No ??? BMI 33.56 kg/m2 NAD, obese Clear lungs, RA IRRR Soft +BS 1+ b/L LE edema Tele: Aflutter BUN/Cr 37/1.59 A/P Aflutter, on IV heparin, BB Echo preserved EF, moderate to severe TR Moderate to severe TR on echo Atypical chest pain. Noted plan for [facility] Possible mild acute diastolic CHF- improved, on RA. Now on IVF JACK on CKD III- improved, post lasix Hx of DM Hx of CVA Hx of PUD 03/2015- Hb stable Obesity Hx of depression Campbell Huston MD * Lulu Cho, [facility] - 12/27/2015 11:11 AM EDT S: Faby Palm is a(n) 65 y.o. female with diagnosis of Aflutter (CHADS2 = 5 HTN, CHF, DM and CVA). Admitted through Ed with SOB associated with palpitations and radiating chest pain. Pharmacy managing anticoagulation therapy. Bleeding signs and symptoms: none- noted hx of PUD in 03/2015 Allergies: Compazine [prochlorperazine edisylate]; [place]; and Talwin [pentazocine lactate]. PMH significant for CHF, CVA / TIA, HTN. O: Most Recent Labs: Recent Labs 12/26/15 1314 12/27/15 0529 WBC 9.9 6.5 HGB 13.0 12.1 HCT 38.9 36.3 PLT 203 154 Recent Labs 12/26/15 1907 12/27/15 0015 12/27/15 0958 INR 1.02 -- -- HEPARINLEVEL -- 1.12* 0.94* PTT 28.2 -- -- Recent Labs 12/26/15 1314 12/26/15 1525 12/26/15 1907 12/27/15 0529 12/27/15 0958 TROPT <0.01 <0.01 <0.01 -- -- BUN 41* -- 41* 37* 37* CREATININE 1.96* -- 2.04* 1.62* 1.59* Weight: 224 lb (101.6 kg) A/P: - Physician orders and progress notes reviewed. - Hgb/Hct are stable. - [id number] overnight elevated at 1.12. Drip was turned off and decreased to 1550 units/hr - Recheck this AM still above goal range. Reduced rate to 1350 units/hr and will recheck level in 6hours - Goal anti-Xa is 0.3-0.7 Lulu Cho [facility] * Shane Carcamo [facility] - 12/27/2015 3:05 AM EDT Mainframe Software Developer Follow Up Initial Anti Xa = 1.12 Anticoagulation greater than desired No evidence of bleeding noted Plan: turn heparin infusion off for 30 minutes Then start at reduced rate of 1550 units/hour Anti Xa at 09:15 Thank You Ben Carcamo [facility] * Lisa Brown [facility] - 12/26/2015 6:23 PM EDT S: Faby Palm is a(n) 65 y.o. female with diagnosis of Aflutter (CHADS2 = 5 HTN, CHF, DM and CVA). Allergies: Compazine [prochlorperazine edisylate]; [place]; and Talwin [pentazocine lactate]. PMH significant for CHF, CVA / TIA, HTN. Pharmacy consulted for management of heparin pharmacotherapy. Bleeding signs/symptoms noted: none. 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 Most Recent Labs: Recent Labs 12/26/15 1314 WBC 9.9 HGB 13.0 HCT 38.9 PLT 203 Recent Labs 12/26/15 1314 12/26/15 1525 TROPT <0.01 <0.01 BUN 41* -- CREATININE 1.96* -- Weight: 224 lb (101.6 kg) A/P: Aflutter CHADS2 = 5 Physician orders and progress notes reviewed. Heparin Will initiate therapy per high dose protocol. Adjust for none / not indicated. Will bolus 8000 units and initiate infusion at 1800 units/hour. Pharmacy will follow pertinent lab parameters in 6 hours(0100) and adjust for goal (anti-Xa 0.3 - 0.7 unit/mL). Lisa Lindo, Pharm.D. [id number] 12/26/2015 6:23 PM * Tsering Tompkins, RN - 12/26/2015 4:51 PM EDT Patient admitted to unit in stable condition. She is A&O. She brings up past suicide attempts, 4 in total (most recent attempt made 8 weeks ago). She says she tried to cut her writs and if she tries again she will do it the right way this time . When asked if she has a plan for the future she states she will swallow anti-freeze because it tastes sweet and will do the trick fast . She deniessuicidal feelings at present and is not in distress. Primary MD notified. Will continue to monitor. * Ela Cochran RN - 12/26/2015 3:25 PM EDT 12/26/15 1520 ED Screening ED Screening Completed Initial screening complete, post-acute needs identified, assessment to follow Medical Record Reviewed Yes Who you interviewed In person interview with patient What brought the patient to the ED chest pain Where did the patient come from[facility] Issues related to prior living situation 12/26/15 ED CC Met with pt in the room. Pt denies needs atthis time. Pt is a resident at [facility]. Pt states she is independent with her walker but then states she has fallen at least 4 times in the lst fewweeks. Pt has a PCP. Pt sttaes she gets her scripts from [facility] in [place], they deliver to her. Pt states [facility] will transport her home at discharge. CC to follow for discharge. Activities of Daily Living Independent Mental Status Alert and oriented Issues with non-compliance No Anticipated post-acute care needs Home with OP Follow Up Potential barriers to discharge No Observation Information Provided to Patient/Family No documented in this encounter H&P Notes * Campbell Huston MD - 12/26/2015 5:16 PM EDT Images from the original note were not included. Name: Faby Palm ADDRESS: [facility] [address] [address] [address] : 1950 AGE: 65 y.o. Admitting Physician: Campbell Huston MD Date of Admit: 12/26/2015 PCP:Alessandra Trevino August, Chief Complaint: shortness of breath and palpitations History of Present Illness: Patient is a 65 y.o. female hx of chronic diastolic CHF, CVA with residual deficit, DM, depression came to ER for evaluation. Reports shortness of breath associated with palpitations this AM, with pain on her chest radiated to her Robi. No nausea, vomiting, diaphoresis. No prior similar issues. Reports bilateral legs swelling past few days. No orthopnea, PND. No changesin exercise tolerance. Lives in a long-term. PMH Chronic diastolic CHF HTN DM RLS CVA Depression PUD (antral and duodenal ulcer), NSAIS related PSH Lung surgery Breast surgery Ankle surgery Past Surgical History Procedure Laterality Date ??? [...] Tablet Take 75 mg by mouth nightly. Yes Provider, Historical ARIPiprazole (ABILIFY) 10 mg Oral Tablet Take 30 mg by mouth daily. Yes Provider, Historical aspirin 81 mg Oral Tablet, Delayed Release (E.C.) Take 81 mg by mouth daily. Yes Provider, Historical ferrous sulfate 325 mg (65 mg iron) Oral Tablet Take 1 Tab by mouth 2 times daily (with meals). 04/04/15 Yes Campbell Huston MD gabapentin (NEURONTIN) 100 mg Oral Capsule Take 100 mg by mouth nightly. Yes Provider, Historical glipiZIDE (GLUCOTROL) 10 mg Oral Tablet Take 10 mg by mouth 2 times daily (with meals). Yes Provider, Historical hydrOXYzine (ATARAX) 50 mg Oral Tablet Take 25 mg by mouth 2 times daily. Yes Provider, Historical lisinopril (PRINIVIL;ZESTRIL) 10 mg Oral Tablet Take 5 mg by mouth daily. Yes Provider, Historical NIFEdipine (PROCARDIA XL) 90 mg Oral Tablet Extended Rel 24 hr Take 90 mg by mouth daily. Yes Provider, Historical pantoprazole (PROTONIX) 40 mg Oral Tablet, Delayed Release (E.C.) Take 1 Tab by mouth 2 times daily. 04/04/15 Yes Campbell Huston MD risperiDONE (RISPERDAL) 1 mg Oral Tablet Take 2 mg by mouth nightly. Yes Provider, Historical roPINIRole (REQUIP) 0.5 mg Oral Tablet Take 1.5 mg by mouth nightly. Yes Provider, Historical sitaGLIPtin (JANUVIA) 100 mg Oral Tablet Take 100 mg by mouth daily. Yes Provider, Historical venlafaxine (EFFEXOR-XR) 150 mg Oral Capsule, Sust. Release 24 hr Take 300 mg by mouth nightly. YesProvider, Historical Allergies Allergen Reactions ??? Compazine [Prochlorperazine Edisylate] ??? [place] ??? Talwin [Pentazocine Lactate] Social History Social [...] Negative. HEENT: Negative. . Respiratory: Negative. Cardiovascular: Negative. Gastrointestinal: Negative. Genitourinary: Negative. Musculoskeletal: positive for B/L swelling Skin: Negative. Neurological: Negative. Endo/Heme/Allergies: Negative. Psychiatric/Behavioral: Negative. Physical Exam: Blood pressure 112/71, pulse 98, temperature 97.6 ??F (36.4 ??C), temperature source Oral, resp. rate 14, height 5' 8.5 (1.74 m), weight 224 lb (101.6 kg), SpO2 100 %, not currently . Body mass index is 33.56 kg/(m^2). Body surface area is 2.16 meters squared. GEN APPEARANCE: Pt appears in NAD HEENT: Normocephalic and atraumatic. Neck: Normal range of motion. Neck supple. Cardiovascular: IRRR, no murmur Pulmonary/Chest: Clear breath sounds bilaterally. No crackles, rales, wheezing. No accessory muscles use. Abdominal: Soft. +BS, non TTP : not examined Neurological: Patient is alert and oriented to person, place, and time. Mild dysarthria, tongue rolling/twisting Musculoskeletal: 2+ pitting LE edema Skin: Skin is warm and dry. No rash noted. Psychiatric: normal mood and affect. Labs: CBC: Lab Results Component Value Date WBC 9.9 12/26/2015 RBC 4.45 12/26/2015 HGB 13.0 12/26/2015 HCT 38.9 12/26/2015 MCV 87.3 12/26/2015 MCHC 33.5 12/26/2015 RDW 14.2 12/26/2015 MPV 9.4 12/26/2015 BMP: Lab Results Component Value Date NA 141 12/26/2015 K 4.0 12/26/2015 CL 100 12/26/2015 CO2 28 12/26/2015 BUN 41 (H) 12/26/2015 CREATININE 1.96 (H) 12/26/2015 CALCIUM 9.0 12/26/2015 GFRAFRAM 31 12/26/2015 GFRNONAFRAM 26 12/26/2015 GLU 74 (L) 12/26/2015 Hepatic: Lab Results Component Value Date ALKPHOS 182 (H) 09/09/2015 ALT 15 09/09/2015 AST 21 09/09/2015 PROT 7.3 09/09/2015 LABBILI 0.2 09/09/2015 BILIDIR <0.2 09/09/2015 Lab Results Component Value Date LIPASE 24 09/09/2015 Radiology: Xr Chest Pa And Lateral Result Date: 12/26/2015 TWO-VIEW CHEST, 12/26/2015 at 1317 HISTORY: -SHORTNESS OF BREATH FINDINGS: Comparison 09/29/2015. Heart size is enlarged but stable. The lungs are clear. No acute disease. EKG Reviewed: Aflutter 2:1 Echo 04/02/2015 EF 60-65%, normal LV function Mod LAE, trace MR, trac TR, RSVP 32 Assessment Aflutter. New onset. CHADS2 5 Possible mild acute diastolic CHF. Elevated BNP. Clear lungs but edematous legs, Mild JACK on CKD III Hx of PUD 03/2015 Hx of DM Hx of HTN Hx of CVA with residual deficit left hemiparesis Hx of depression. Stable No suicidal ideation, hallucinations Obesity Plan Metoprolol, lasix 40 mg IV x 1 IV heparin. Monitor given hx of PUD in 03/2015 Echo DC nifedipine Cardiology consult OP sleep studies Ablation might be an option TSH normal in 09/2015 Campbell Huston MD 12/26/2015 documented in this encounter Consult Notes * Mita Tee MD - 12/27/2015 5:36 PM EDTAssociated Order(s): IP CONSULT TO ELECTROPHYSIOLOGY ADMISSION: 12/27/2015 PATIENT: Faby Palm [id number] PCP: Alessandra Trevino, CHAIRMAN CEO I would like to thank Campbell Huston [...] BRUSHING; Surgeon: Chrissy Brown MD; Location: [facility] ENDOSCOPY; Service: Endoscopy Allergy Allergies Allergen Reactions ??? Compazine [Prochlorperazine Edisylate] ??? [place] ??? Talwin [Pentazocine Lactate] Family History Family [...] most recent cardiovascular imaging studies availabe in [facility] EMR were reviewed at time of [...] for rate control --> please transfer to [place] over /Wednesday under hospitalist service for planned procedure on Wednesday 2. CVA in the past --> patient reports that this was related to hypertensive emergency * Kaushik Perea MD - 12/27/2015 11:18 AM EDT [facility]/[place]/[facility]/[place], [place] NAME: FABY PALM [facility]#: [id number] LOCATION/ROOM: [address] FACILITY: [facility] DICTATOR: Kaushik Perea CONSULTATION Page 1 CONSULTATION CARDIOLOGY CONSULTATION DATE OF CONSULTATION: 12/27/2015 DATE OF : 1950 REASON FOR CONSULTATION: Jaw discomfort, chest discomfort, atrial flutter. HISTORY OF PRESENT ILLNESS: The patient is a pleasant 65-year-old who tells me she lives in [place] due to a psychiatric issue. She tells me that yesterday morning she began having significant aching on both sides of her jaw. She also had chest discomfort and a heaviness. She was short of breath. She had no palpitations, dizziness, presyncope, or syncope. She was brought to the hospital and found to have new onset atrial flutter. Even now, she has a mild discomfort in her chest. She has never had this before. PAST MEDICAL HISTORY: The patient has history diastolic heart failure, hypertension, diabetes, history of stroke in the past, depression, peptic ulcer disease due to NSAIDs in September 2014. She tells methat she has schizophrenia and depression. SOCIAL HISTORY: She has no history of smoking, alcohol, or drug abuse. FAMILY HISTORY: Negative for premature heart disease. REVIEW OF SYSTEMS: She has no headaches, no fevers, no chills, no nausea, no vomiting, no diarrhea,no burning micturition and no seizures. All other systems negative and reviewed by me. PHYSICAL EXAMINATION: GENERAL APPEARANCE: The patient is sitting up in bed at present, in no severe distress at this time. VITAL SIGNS: Blood pressure is 106/70, pulse rate of 90. HEENT: Head is atraumatic, normocephalic. NECK: There is no JVD. Supple. No thyromegaly. CARDIOVASCULAR: S1, S2 irregularly irregular. CHEST: Respirations: Bilateral equal air entry. No crepitus or rhonchi. ABDOMEN: Soft. Positive bowel sounds. EXTREMITIES: Mild edema bilaterally. NEUROLOGIC EXAM: She is alert, awake, and oriented x3. Mood and affect are appropriate. LABORATORY DATA: Creatinine is 1.62, potassium 3.9. CBC is normal. Creatinine on 12/25 was 2.04 andcreatinine in September, was 1.42 and in May, was 1.08. CHEST X-RAY: A chest x-ray, PA and lateral, demonstrates lungs to be clear. EKG: EKG demonstrates atrial flutter with a rate of 80 beats per minute and decreased R-wave progression; no dynamic ST segment changes. ASSESSMENT AND PLAN: 1. The patient is a pleasant 65-year-old who has a history of psychiatric issues. She presented to the hospital with jaw discomfort and chest pressure. This is suspicious for angina. She was found tohave new onset atrial flutter with controlled ventricular rate. She has multiple risk factors for at herosclerotic heart disease including hypertension, diabetes; history of CVA. I reviewed her stresstest from September,. There was no evidence of ischemia. I discussed with the patient the options of coronary angiography as a definitive modality to evaluate atherosclerotic heart disease. The risksof this procedure including bleeding, infection, heart attack, stroke, emergency bypass, damage to blood vessels, and . The patient understands all these. I also brought the patients nurse into the room. The patient was able to tell her nurse all about this angiograph. The patient tells me that she makes the wrong decisions and she has family in [place]; however, makes her own decisions. She wishes to proceed with coronary angiography. I discussed the risks of this procedure including ____; hence, we will not proceed with coronary angiography today. I have started her on IV fluids andwe will proceed with coronary angiography tomorrow. I have ordered an echocardiogram. 2. I reviewed her last stress test from September 2015 which was negative. 3. New onset atrial flutter. Time of onset is unknown. I have consulted Dr. Tee. 4. She has a history of GI bleed and is on IV heparin. I have consulted Gastroenterology to assist us since she likely needs anticoagulation. The risk of stroke was explained to the patient. 5. Diabetes. 6. History of schizophrenia and depression. 7. I have ordered thyroid function tests. 8. Hypertension. 9. History of diastolic heart failure. She does not appear to be in decompensated heart failure. She has some mild leg swelling. I have initiated IV fluids for her kidneys. At this time we will hold off on diuretics. 10. The patient is complex. She has multiple medical issues. I thank Dr. Huston for consulting me. If you have any questions, please do not hesitate to call me. Kaushik Perea MD By: Job ID: [id number] DocID: [id number] CC: * Kaushik Perea MD - 12/27/2015 11:17 AM EDT Plan: Echo IV fluids Cath tomorrow. Monitor labs Cath TSH Thank you. [id number] * Danial Erickson DO - 12/27/2015 11:11 AM EDT GI Consultation: Faby Palm is a 65 y.o. female asked to see us in consultation by Alessandra Trevino APRN & Campbell Huston MD for evaluation of New Aflutter, need for anticoagulation, PUD in Mar 2015. Patient with history of DM, Stroke, COPD, CHF, with new diagnosis of A flutter. She presented to the ER with CP, and SOB. She was evaluated in the ER and found to be in A Flutter and started on heparin gtt. Cardiology requesting GI eval due to need for residential use of anticoag medication. With recent EGD in March of this year she was diagnosed with Ulcers in the middle third of the esophagus, a nd pill esophagitis. She was started on Carafate and PPI bid. She reports compliance with both medication. She continues to have heart burn symptoms that she uses TUMS and Rolaids 3-4 x a week. She denies any GI complaints currently - abdominal pain, melena, hematemesis, hematochezia, wt loss, constipation, diarrhea. Hgb stable at 12.1, BUN 37, Creat 1.59. Previous endoscopic procedures: EGD 04/03/2015 for ELIU and epigastric pain ??Ring in the gastroesophageal junction. ??Food in the stomach body. ??Ulcers in the middle third of the esophagus. (Biopsy, Brushing). negative ??Normal mucosa in the whole examined duodenum. (Biopsy). negative Prescriptions Prior to Admission Medication Sig Dispense Refill Last Dose ??? acetaminophen 325 mg Oral Tab Take 650 mg by mouth every 4 hours as needed for Pain. Unknown atUnknown time ??? amitriptyline (ELAVIL) 75 mg Oral Tablet Take 75 mg by mouth nightly. 12/25/2015 at 2100 ??? ARIPiprazole (ABILIFY) 10 mg Oral Tablet Take 30 mg by mouth daily. 12/26/2015 at 0830 ??? aspirin 81 mg Oral Tablet, Delayed Release (E.C.) Take 81 mg by mouth daily. 12/26/2015 at Unknown time ??? ferrous sulfate 325 mg (65 mg iron) Oral Tablet Take 1 Tab by mouth 2 times daily (with meals).60 Tab 5 12/26/2015 at 0830 ??? gabapentin (NEURONTIN) 100 mg Oral Capsule Take 100 mg by mouth nightly. 12/26/2015 at 2100 ??? glipiZIDE (GLUCOTROL) 10 mg Oral Tablet Take 10 mg by mouth 2 times daily (with meals). 12/26/2015 at 0830 ??? hydrOXYzine (ATARAX) 50 mg Oral Tablet Take 25 mg by mouth 2 times daily. 12/26/2015 at 0830 ??? lisinopril (PRINIVIL;ZESTRIL) 10 mg Oral Tablet Take 5 mg by mouth daily. 12/26/2015 at 0830 ??? pantoprazole (PROTONIX) 40 mg Oral Tablet, Delayed Release (E.C.) Take 1 Tab by mouth 2 times daily. 60 Tab 1 12/26/2015 at 8030 ??? risperiDONE (RISPERDAL) 1 mg Oral Tablet Take 2 mg by mouth nightly. 12/26/2015 at 2100 ??? roPINIRole (REQUIP) 0.5 mg Oral Tablet Take 1.5 mg by mouth nightly. 12/26/2015 at 2100 ??? sitaGLIPtin (JANUVIA) 100 mg Oral Tablet Take 100 mg by mouth daily. 12/26/2015 at 0830 ??? torsemide (DEMADEX) 10 mg Oral Tablet Take 10 mg by mouth 2 times daily. 12/26/2015 at Unknown time ??? venlafaxine (EFFEXOR-XR) 150 mg Oral Capsule, Sust. Release 24 hr Take 300 mg by mouth nightly.12/26/2015 at 2100 Medication: ??? ARIPiprazole 30 mg Oral Daily [...] Nightly ??? venlafaxine 300 mg Oral Nightly ??? sodium chloride ??? heparin (porcine) 1,350 Units/hr (12/27/15 1109) Allergies: Allergies Allergen Reactions ??? Compazine [Prochlorperazine Edisylate] ??? [place] ??? Talwin [Pentazocine Lactate] Immunizations: Immunization History Administered Date(s) Administered ??? Influenza Vaccine Quadrivalent PF 12/27/2015 ??? Pneumococcal Conjugate Vaccine 13 Valent 12/26/2015 Family history, past medical history, and social history are reviewed as below. Past Medical History: Past Medical History Diagnosis Date ??? CHF (congestive heart failure) (HCC) ??? COPD (chronic obstructive pulmonary disease) (HCC) ??? DDD (degenerative disc disease) ??? Diabetes mellitus (HCC) ??? Hypertension ??? RLS (restless legs syndrome) ??? Stroke (HCC) 2010 left side affected ??? Suicide attempt (HCC) ??? Yeast infection recurrent Past Surgical History: Past Surgical History Procedure Laterality Date ??? Lung surgery ??? Tonsillectomy ??? Breast surgery ??? Orthopedic surgery ??? Joint replacement ??? Ankle surgery ??? Upper gastrointestinal endoscopy N/A 04/03/2015 ESOPHAGOGASTRODUODENOSCOPY WITH BIOPSY AND BRUSHING; Surgeon: Chrissy Brown MD; Location: [facility]; Service: Endoscopy Family History: Family History Problem Relation Age of Onset ??? Cancer Mother raffaele cancer Social History: Social History Substance Use Topics ??? Smoking status: Never Smoker ??? Smokeless tobacco: Never Used ??? Alcohol use No ROS Constitutional: Denies fever,sweats, chills or weight loss Eyes: Denies change in visual acuity HENT: Denies hearing loss or dizziness Respiratory: Denies cough new onset shortness of breath Cardiovascular: Denies edema New onset chest pain : Denies dysuria, hematuria, urgency or frequency Musculoskeletal: Denies back pain or joint pain Integument: Denies rash Neurologic: Denies headache, previous stroke, TIA, confusion Endocrine: Denies polyuria or polydipsia Lymphatic: Denies swollen glands Psychiatric: Positive history of depression and anxiety , suicide attempt Hematologic: Denies previous anemia or easy bruising All other review of systems negative, except for those noted. PHYSICAL EXAM: VITAL SIGNS: Visit Vitals ??? BP 106/67 (BP Location: Right arm, Patient Position: Semi Fowlers) ??? Pulse 91 ??? Temp 97.1 ??F (36.2 ??C) (Oral) ??? Resp 16 ??? Ht 5' 8.5 (1.74 m) ??? Wt 224 lb (101.6 kg) ??? SpO2 100% ??? No ??? BMI 33.56 kg/m2 Date 12/27/15 0700 - 12/28/15 0659 Shift 8260-4082 2447-2043 2939-4888 24 Hour Total I N T A K E P.O. 360 360 I.V. (mL/kg/hr) 197.6 197.6 IV Piggyback 0 0 Shift Total (mL/kg) 557.6 (5.5) 557.6 (5.5) O U T P U T Shift Total (mL/kg) Weight (kg) 101.6 101.6 101.6 101.6 Constitutional: Well developed. Well nourished. Non-toxic appearance. No acute distress. HENT: Normocephalic. Atraumatic. Bilateral external ears normal, Oropharynx moist. No oral exudate.Nose normal. Eyes: No Scleral icterus Neck: No Cervical or supraclavicular nodes Lymphatic: No lymphadenopathy noted. Cardiovascular: Normal S1 and S2, Irregular rhythm, Aflutter, No murmurs, No rubs, No gallops. Thorax & Lungs: Normal breath sounds, No respiratory distress, No wheezing, No chest tenderness. Abdomen: Soft, non-tender. Bowel sounds are normoactive x 4 quad, without bruits. No guarding, spasm or rebound. Rectal: Deferred. Skin: Warm, dry. No erythema. No rash. Extremities: Intact distal pulses, No deformity. LE dependent yoon edema +1. Neurologic: Alert & oriented x 3, RESULTS Lab Results Component Value Date ALT 15 09/09/2015 AST 21 09/09/2015 GGT 49 (H) 09/09/2015 ALKPHOS 182 (H) 09/09/2015 BILIDIR <0.2 09/09/2015 PROT 7.3 09/09/2015 INR 1.02 12/26/2015 LIPASE 24 09/09/2015 Lab Results Component Value Date WBC 6.5 12/27/2015 HGB 12.1 12/27/2015 HCT 36.3 12/27/2015 MCV 87.9 12/27/2015 PLT 154 12/27/2015 Lab Results Component Value Date CREATININE 1.59 (H) 12/27/2015 BUN 37 (H) 12/27/2015 NA 139 12/27/2015 K 3.9 12/27/2015 CL 100 12/27/2015 CO2 29 12/27/2015 IMAGES Xr Chest Pa And Lateral Result Date: 12/26/2015 TWO-VIEW CHEST, 12/26/2015 at 1317 HISTORY: -SHORTNESS OF BREATH FINDINGS: Comparison 09/29/2015. Heart size is enlarged but stable. The lungs are clear. No acute disease. Ek Ekg 12 Lead Result Date: 12/27/2015 NOTICE: Preliminary tracing available for review; Final Interpretation by physician to follow. Stationary ECG Study [facility] Interpretive Statements SINUS RHYTHM WITH FREQUENT ECTOPIC PREMATURE COMPLEXES LOW QRS VOLTAGE IN PRECORDIAL LEADS [QRS DEFLECTION < 1.0 mV IN CHEST LEADS] POSSIBLE ANTERIOR MYOCARDIAL INFARCTION [30 ms Q WAVE IN V3/V4, OR R < 0.2 mV IN V4], OF INDETERMINATE AGE INFERIOR MYOCARDIAL INFARCTION [40+ ms Q WAVE AND/OR ST/T ABNORMALITY IN II/aVF], OFINDETERMINATE AGE Ek Ekg 12 Lead Result Date: 12/26/2015 NOTICE: Preliminary tracing available for review; Final Interpretation by physician to follow. Stationary ECG Study [facility] Interpretive Statements ATRIAL FLUTTER POSSIBLE ANTERIOR MYOCARDIAL INFARCTION, OF INDETERMINATE AGE INFERIOR MYOCARDIAL INFARCTION, OF INDETERMINATE AGEA FLUTTER IS NEW COMPARED TO PREVIOUS ECG Electronically Signed On 12-26-2015 16:23:09 EDT by Abundio Marin MD Scanned Rhythm Strips Result Date: 12/27/2015 Ordered by an unspecified provider. ASSESSMENT 1. New onset A Flutter requiring anticoag residential use. With history of gastric ulcers Mar 2015. PLAN 1. Okay for anticoag med as indicated and directed per cardiology 2. Continue PPI 3. Monitor Hgb, monitor for signs of bleeding 1. The patient indicates understanding of these issues and agrees with the plan. 2. I reviewed the patient's medical information and medical history. 3. I have reviewed the past medical, family, and social history sections including the medications and allergies listed in the above medical record. Electronically signed by: Faby Berger APRN, 12/27/2015 11:11 AM I have seen and interviewed this patient face to face. I have reviewed the chief complaint, historyof present illness, vital signs, I/O, physical examination, laboratory and radiographic studies. I have examined this patient, and participated in the care of this patient in coordination with the nurse practitioner. There has been no change In the data recorded by the CHAIRMAN CEO. HEENT: NCAT Lungs:CTAB CV: RRR Abd: soft, ntd ExT: dpi History of esophagitis on bid ppi. OK with anticoagulation but continue antisecretory therapy at least once daily. Will sign off. Please call if further questions or concerns. documented in this encounter ED Notes * Shahzad Correa RN - 12/26/2015 3:41 PM EDT Report called to LACEY Duff. Patient to [id number]. * Eliza Contreras RN - 12/26/2015 12:47 PM EDT Bed: AC07 Expected date: Expected time: Means of arrival: Comments: [facility] * Tr Henry MD - 12/26/2015 12:40 PM EDT Chief Complaint Patient presents with ??? Shortness of Breath Pt is a resident at [facility] in [facility], she c/o feeling SOB, chest tightness andjaw pain. On ED arrival pt is awake and alert c/o L sided jaw pain, chest tightness. HPI Comments: The patient is a 65-year-old female with past medical history significant for psychiatric issues, COPD, CHF, diabetes, hypertension, who presents to the emergency room with complaints of chest pain. Patient states that she has had acute onset of chest tightness that radiatesto her jaw along with shortness of breath. Patient reports moderate intensity of her symptoms. Patient states that they have been constant today. She reports shortness of breath at rest. Patient denies any vomiting. She has had no diarrhea. No dizziness noted. She has not taken any medications prior to arrival. She lives at a [facility] in [facility]. She is here for evaluation. 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 Compazine [Prochlorperazine Edisylate] ??? [place] ??? Talwin [Pentazocine Lactate] Home Medications: Prior to Admission medications Medication Sig Start Date End Date Taking? Authorizing Provider acetaminophen 325 mg Oral Tab Take 650 mg by mouth every 4 hours as needed for Pain. Yes Provider, Historical amitriptyline (ELAVIL) 75 mg Oral Tablet Take 75 mg by mouth nightly. Yes Provider, Historical ARIPiprazole (ABILIFY) 10 mg Oral Tablet Take 30 mg by mouth daily. Yes Provider, Historical ferrous sulfate 325 mg (65 mg iron) Oral Tablet Take 1 Tab by mouth 2 times daily (with meals). 04/04/15 Yes Campbell Huston MD gabapentin (NEURONTIN) 100 mg Oral Capsule Take 100 mg by mouth nightly. Yes Provider, Historical glipiZIDE (GLUCOTROL) 10 mg Oral Tablet Take 10 mg by mouth 2 times daily (with meals). Yes Provider, Historical hydrOXYzine (ATARAX) 50 mg Oral Tablet Take 25 mg by mouth 2 times daily. Yes Provider, Historical lisinopril (PRINIVIL;ZESTRIL) 10 mg Oral Tablet Take 5 mg by mouth daily. Yes Provider, Historical NIFEdipine (PROCARDIA XL) 90 mg Oral Tablet Extended Rel 24 hr Take 90 mg by mouth daily. Yes Provider, Historical pantoprazole (PROTONIX) 40 mg Oral Tablet, Delayed Release (E.C.) Take 1 Tab by mouth 2 times daily. 04/04/15 Yes Campbell Huston MD risperiDONE (RISPERDAL) 1 mg Oral Tablet Take 2 mg by mouth nightly. Yes Provider, Historical roPINIRole (REQUIP) 0.5 mg Oral Tablet Take 1.5 mg by mouth nightly. Yes Provider, Historical sitaGLIPtin (JANUVIA) 100 mg Oral Tablet Take 100 mg by mouth daily. Yes Provider, Historical venlafaxine (EFFEXOR-XR) 150 mg Oral Capsule, Sust. Release 24 hr Take 300 mg by mouth nightly. YesProvider, Historical aspirin 81 mg Oral Tablet, Delayed Release (E.C.) Take 81 mg by mouth daily. Provider, Historical Past Medical History: Past Medical History Diagnosis Date ??? CHF [...] Negative for chills and fever. HENT: Negative. Positive for jaw pain Eyes: Negative. Respiratory: Positive for chest tightness and shortness of breath. Negative for cough. Cardiovascular: Negative for chest pain, palpitations and leg swelling. Gastrointestinal: Negative for abdominal pain, diarrhea, nausea and vomiting. Genitourinary: Negative for dysuria and frequency. Musculoskeletal: Negative. Skin: Negative for rash. Neurological: Negative. Psychiatric/Behavioral: Negative. All other systems reviewed and are negative. Blood pressure 101/60, pulse 93, temperature 97.9 ??F (36.6 ??C), temperature source Oral, resp. rate 22, height 5' 8.5 (1.74 m), weight 224 lb (101.6 kg), SpO2 99 %. Physical Exam Constitutional: She is oriented to person, place, and time. She appears well- developed and well-nourished. No distress. HENT: Head: Normocephalic and atraumatic. Mouth/Throat: Oropharynx is clear and moist. Mucous membranes are dry Eyes: Conjunctivae and EOM are normal. Pupils are equal, round, and reactive to light. Neck: Normal range of motion. Neck supple. Cardiovascular: Normal rate and regular rhythm. Exam reveals no gallop and no friction rub. No murmur heard. Pulmonary/Chest: Effort normal and breath sounds normal. Clear to auscultation bilaterally Abdominal: Soft. Bowel sounds are normal. She [...] or performed during the hospital encounter of 12/26/15 XR CHEST PA AND LATERAL Narrative TWO-VIEW CHEST, 12/26/2015 at 1317 HISTORY: -SHORTNESS OF BREATH FINDINGS: Comparison 09/29/2015. Heart size is enlarged but stable. The lungs are clear. Impression No acute disease. CBC WITH AUTO DIFF Result Value Ref Range WBC 9.9 4.0 - 11.0 x10(3)/mcL RBC 4.45 3.80 - 5.10 x10(6)/mcL Hgb 13.0 12.0 - 15.6 gm/dL Hct 38.9 35.7 - 45.9 % MCV 87.3 82.5 - 99.8 fL MCH 29.3 27.0 - 34.3 pg MCHC 33.5 32.1 - 35.3 gm/dL RDW 14.2 11.5 - 15.0 % Platelet 203 144 - 423 x10(3)/mcL MPV 9.4 6.8 - 10.8 fL BASIC METABOLIC PANEL Result Value Ref Range Sodium 141 136 - 145 mmol/L Potassium 4.0 3.5 - 5.0 mmol/L Chloride 100 98 - 107 mmol/L Total CO2 28 22 - 29 mmol/L Anion Gap 13 7 - 16 mmol/L Calcium 9.0 8.8 - 10.2 mg/dL Glucose Lvl 74 (L) 82 - 100 mg/dL BUN 41 (H) 8 - 23 mg/dL Creatinine 1.96 (H) 0.51 - 1.30 mg/dL GFR Afr Am 31 GFR Non Afr Am 26 TROPONIN-T Result Value Ref Range Troponin-T <0.01 <=0.00 ng/mL NT PROBNP Result Value Ref Range NT Pro-BNP 1172 (H) <=319 pg/mL DIFFERENTIAL Result Value Ref Range Neut Percent 62.6 % Lymph Percent 24.2 % [place] Percent 7.1 % Eos Percent 5.3 % Baso Percent 0.8 % Neut# 6.2 1.8 - 7.7 x10(3)/mcL Lymph# 2.4 0.6 - 4.8 x10(3)/mcL [place]# 0.7 0.0 - 1.3 x10(3)/mcL Eos# 0.5 0.0 - 0.5 x10(3)/mcL Baso# 0.1 0.0 - 0.2 x10(3)/mcL EK EKG 12 LEAD Narrative NOTICE: Preliminary tracing available for review; Final Interpretation by physician to follow. Impression Stationary ECG Study [facility] Interpretive Statements ATRIAL FLUTTER/TACHYCARDIA POSSIBLE ANTERIOR MYOCARDIAL INFARCTION, OF INDETERMINATE AGE INFERIOR MYOCARDIAL INFARCTION, OF INDETERMINATE AGE ED Course: Appropriate laboratory and radiology studies reviewed EKG shows new onset atrial flutter. Patient has a 2 to one response. There are some concerning ST segment changes noted. Patient last had a stress test in September which was negative. Patient's O2 sats remained stable. Patient is given aspirin and nitroglycerin. Patient has some mild acute renal failure. Patient's chest x-ray shows no evidence for fluid overload. Patient is started on slow fluids at 100 mls per hour. I am hoping that the fluids will resolve her cardiac dysrhythmia. She remains in atrial flutter, but is rate controlled The on-call physician for Alessandra Trevino August, was paged. Dr. Huston returned the page. The patient's history, presentation, laboratory and radiographic results were discussed with the on-call physician. Dr. Huston accepted the patient for admission. Admission orders were written by me. The [facility] and the patient were informed of the disposition. Patient's old records were reviewed and are part of the medical decision making. Old records include previous emergency room visits, admission history and physicals, discharge summaries and previous lab work, EKGs and/or imaging studies. 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) Acute renal failure, unspecified acute renal failure type (HCC) Critical Care time Condition at Discharge/Transfer from Department: Improved This chart was completed using voice recognition technology and may contain unintended errors Tr Henry MD 12/26/15 1403 documented in this encounter Miscellaneous Notes * Plan of Care - Sandra Engel RN - 12/28/2015 12:25 PM EDT Problem: Safety: Fall Risk Goal: Patient will remain free of falls and injury Outcome: Progressing Bed in lowest position; Non-skid socks in place; Bedside table close; Call light within reach and pt demonstrates understanding of use. Problem: Pain Management Goal: The patient???s stated pain goal will be reached and maintained. The patient???s stated pain goal will be reached and maintained Outcome: Progressing Pt has denied pain this shift * Plan of Care - Sandra Engel RN - 12/27/2015 3:33 PM EDT Problem: Individualized Patient Preference/Goals - (ALWAYS ADD TO CARE PLANS) (always add to care plan) Goal: What is most important for you today? ANSWER DAILY This goal needs to be ANSWER DAILY - DO NOT COMPLETE Outcome: Progressing Pt. Had PICC line placed Problem: Safety: Fall Risk Goal: Patient will remain free of falls and injury Outcome: Progressing Bed in lowest position; non-skid socks in place; bedside table close; call light within reach and pt demonstrates understanding of use * Utilization Review Notes - Viktoriya Pepe RN - 12/27/2015 11:08 AM EDT Inpatient order in chart. 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 Patient presents with? Shortness of Breath? Pt is a resident at [facility] in [facility], she c/o feeling SOB, chest tightness and jaw pain. On ED arrival pt is awake and alert c/o L sided jaw pain, chest tightness. ?BUN 41, creatinine 1.96, Pro BNP 1172, Cont ivf Ns at 100 ml/hr. Heparin Iv bolus followed by cont iv gtt. Consult Cardiology/EP and GI. Echo, CC following for dc planning. Attending MD Plan 12-26-15 Metoprolol, lasix 40 mg IV x 1 IV heparin. Monitor given hx of PUD in 03/2015 Echo DC nifedipine Cardiology consult OP sleep studies Ablation might be an option TSH normal in 09/2015 * Plan of Care - Maureen Devries RN - 12/27/2015 3:00 AM EDT Problem: Individualized Patient Preference/Goals - (ALWAYS ADD TO CARE PLANS) (always add to care plan) Goal: What is most important for you today? ANSWER DAILY This goal needs to be ANSWER DAILY - DO NOT COMPLETE Outcome: Progressing I want to get sleep Problem: Safety: Fall Risk Goal: Patient will remain free of falls and injury Outcome: Progressing Pt remained free from falls. Side rails up x2. Bed locked and in lowest position, call light in reach. Pt verbalized understanding. Problem: Pain Management Goal: The patient???s stated pain goal will be reached and maintained. The patient???s stated pain goal will be reached and maintained Outcome: Progressing Pt is currently sleeping w/ 0 s/s of pain Problem: Knowledge Deficit Related to Disease Process/Treatment Goal: Patient/family will be knowledgeable of disease process and treatment Outcome: Progressing rx and dx information provided Problem: Cardiac Dysfunction - 73 Goal: Patient will have adequate blood volume through coronary vasculature maintained and cardiac pump effectiveness will be improved Outcome: Progressing Pt is strict I/O and daily weight * Critical Result Value - Maureen Devries RN - 12/27/2015 2:52 AM EDT Faby Palm [id number], 1950 12/27/2015 Test Name/Result: Heparin Time: 248 Caller/Home Health Occupational Therapist: Elaine Lozano to Maureen Devries RN Action Taken: Pharmacy called Time: 250 Notified Physician/Physician Designee: Ben Carcamo documented in this encounter Plan of Treatment Not on file documented as of this encounter Procedures Procedure Name Priority Date/Time Associated Diagnosis Comments SCANNED RHYTHM STRIPS 12/31/2015 10:09 PM EDT GLUCOSE METER POC Routine 12/28/2015 4:30 PM EDT HEPARIN ANTI-XA, UNF Timed 12/28/2015 2:54 PM EDT GLUCOSE METER POC Routine 12/28/2015 12:02 PM EDT GLUCOSE METER POC Routine 12/28/2015 9:04 AM EDT HEPARIN ANTI-XA, UNF Early AM 12/28/2015 6:51 AM EDT PT / INR Routine 12/28/2015 6:51 AM EDT DIFFERENTIAL Early AM 12/28/2015 4:05 AM EDT CBC WITH DIFF Early AM 12/28/2015 4:05 AM EDT MAGNESIUM LEVEL Early AM 12/28/2015 4:05 AM EDT BASIC METABOLIC PANEL Early AM 12/28/2015 4:05 AM EDT SCANNED RHYTHM STRIPS 12/28/2015 3:02 AM EDT HEPARIN ANTI-XA, UNF Timed 12/27/2015 10:58 PM EDT GLUCOSE METER POC Routine 12/27/2015 8:49 PM EDT HEPARIN ANTI-XA, UNF Timed 12/27/2015 5:06 PM EDT GLUCOSE METER POC Routine 12/27/2015 5:05 PM EDT IR ULTRASOUND GUIDED VASCULAR ACCESS EMMY 12/27/2015 2:20 PM EDT IR PICC INSERTION EQUAL OR > 5 YEARS EMMY 12/27/2015 2:20 PM EDT GLUCOSE METER POC Routine 12/27/2015 11:50 AM EDT IP CONSULT TO ELECTROPHYSIOLOGY Routine 12/27/2015 10:04 AM EDT Procedure Note - Mita Tee MD - 12/27/2015 5:36 PM EDTThis note is in progress. ADMISSION: 12/27/2015 PATIENT: Faby Palm [id number] PCP: Alessandra Trevino, CHAIRMAN CEO I would like to thank Campbell Huston MD for requesting me to see yourpatient, Faby Palm in consultation for AFL. Ms. Faby Palm is a 65 y.o. 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 ANgiogram tomorrow Past Medical History Past Medical History Diagnosis Date ? ? CHF (congestive heart failure) (HCC) [...] 30 mg by mouth daily. ? ? ferrous sulfate 325 mg (65 mg iron) Oral Tablet Take 1 Tab by mouth 2times daily (with meals). 60 Tab 5 ? ? glipiZIDE (GLUCOTROL) 10 mg Oral Tablet Take 10 mg by mouth 2 timesdaily (with meals). ? ? hydrOXYzine (ATARAX) 50 mg Oral Tablet Take 25 mg by mouth 2 timesdaily. ? ? lisinopril (PRINIVIL;ZESTRIL) 10 mg Oral Tablet Take 5 mg by mouthdaily. ? ? pantoprazole (PROTONIX) 40 mg Oral Tablet, Delayed Release (E.C.) Take 1Tab by mouth 2 times daily. 60 Tab 1 ? ? risperiDONE (RISPERDAL) 1 mg Oral Tablet Take 2 mg by mouth nightly. ? ? roPINIRole (REQUIP) 0.5 mg Oral Tablet Take 1.5 mg by mouth nightly. ? ? sitaGLIPtin (JANUVIA) 100 mg Oral Tablet Take 100 mg by mouth daily. ? ? venlafaxine (EFFEXOR-XR) 150 mg Oral Capsule, Sust. Release 24 hr Deto002 mg by mouth nightly. Scheduled Meds: ? ? ARIPiprazole 30 mg Oral Daily ? ? aspirin 81 mg Oral Daily ? ? ferrous sulfate 325 mg Oral BID WM ? ? gabapentin 100 mg Oral Nightly ? ? insulin aspart 1-10 Units Subcutaneous QID WM ? ? linagliptin 5 mg Oral Daily ? ? metoprolol 25 mg Oral BID ? ? nitroGLYCERIN 1 Inch Topical 4 times per day ? ? pantoprazole 40 mg Oral BID ? ? risperiDONE 2 mg Oral Nightly ? ? roPINIRole 1.5 mg Oral Nightly ? ? sodium chloride 0.9% 10 mL Intravenous 3 times per day ? ? venlafaxine 300 mg Oral Nightly Continuous Infusions: ? ? sodium chloride 100 mL/hr at 12/27/15 1440 ? ? heparin (porcine) 1,350 Units/hr (12/27/15 1438) Past Surgical History Past Surgical History Procedure Laterality Date ? ? Lung surgery ? ? Tonsillectomy ? ? Breast surgery ? ? Orthopedic surgery ? ? Joint replacement ? ? Ankle surgery ? ? Upper gastrointestinal endoscopy N/A 04/03/2015 ESOPHAGOGASTRODUODENOSCOPY WITH BIOPSY AND BRUSHING; Surgeon:Chrissy Brown MD; Location: [facility]; Service: Endoscopy Allergy Allergies Allergen Reactions ? ? Compazine [Prochlorperazine Edisylate] ? ? [place] ? ? Talwin [Pentazocine Lactate] Family History Family History Problem Relation Age of Onset ? ? Cancer Mother larnyx cancer Social History Social History Substance Use Topics ? ? Smoking status: Never Smoker ? ? Smokeless tobacco: Never Used ? ? Alcohol use No Review of Systems palpitations, tachycardia, all other systems have been reviewed and arenegative. Objective: Visit Vitals ? ? BP (!) 147/95 (BP Location: Left arm, Patient Position: Semi Fowlers) ? ? Pulse 90 ? ? Temp 97.3 ??F (36.3 ??C) (Oral) ? ? Resp 18 ? ? Ht 5' 8.5 (1.74 m) ? ? Wt 224 lb (101.6 kg) ? ? SpO2 100% ? ? No ? ? BMI 33.56 kg/m2 General: alert, appears stated [...] most recent cardiovascular imaging studies availabe in [facility] EMR werereviewed at time of consultation Assessment: Plan: 1. Atrial flutter- likely CTI dependent Discussed Rx options with the patient in detail- I recommended a CTIflutter ablation early next week- The customary risks and benefits of the procedure were explained to thepatient and they wish to proceed. --> Continue UFH --> Will need NOAC for 4 weeks post flutter ablation --> Increase Lopressor for rate control --> please transfer to [place] over weekend/Wednesday under hospitalistservice for planned procedure on Wednesday 2. CVA in the past --> patient reports that this was related to hypertensive emergency HEPARIN ANTI-XA, UNF Timed 12/27/2015 9:58 AM EDT THYROID STIMULATING HORMONE Routine 12/27/2015 9:58 AM EDT MAGNESIUM LEVEL Routine 12/27/2015 9:58 AM EDT BASIC METABOLIC PANEL Routine 12/27/2015 9:58 AM EDT EC ECHOCARDIOGRAM COMPLETE W DOPPLER AND COLOR FLOW MAPPING Routine 12/27/2015 9:20 AM EDT GLUCOSE METER POC Routine 12/27/2015 7:12 AM EDT CBC Early AM 12/27/2015 5:29 AM EDT BASIC METABOLIC PANEL Early AM 12/27/2015 5:29 AM EDT SCANNED RHYTHM STRIPS 12/27/2015 2:39 AM EDT EK EKG 12 LEAD Routine 12/27/2015 12:35 AM EDT HEPARIN ANTI-XA, UNF Timed 12/27/2015 12:15 AM EDT TROPONIN-T Timed 12/26/2015 7:07 PM EDT PARTIAL THROMBOPLASTIN TIME STAT 12/26/2015 7:07 PM EDT PT / INR STAT 12/26/2015 7:07 PM EDT BASIC METABOLIC PANEL Routine 12/26/2015 7:07 PM EDT TROPONIN-T STAT 12/26/2015 3:25 PM EDT XR CHEST PA AND LATERAL EMMY 12/26/2015 1:27 PM EDT TROPONIN-T STAT 12/26/2015 1:14 PM EDT DIFFERENTIAL STAT 12/26/2015 1:14 PM EDT CBC WITH DIFF STAT 12/26/2015 1:14 PM EDT NT PROBNP STAT 12/26/2015 1:14 PM EDT BASIC METABOLIC PANEL STAT 12/26/2015 1:14 PM EDT SALINE LOCK IV STAT 12/26/2015 12:42 PM EDT EK EKG 12 LEAD STAT 12/26/2015 12:42 PM EDT documented in this encounter Results * SCANNED RHYTHM STRIPS (12/31/2015 10:09 PM EDT) Anatomical Region Laterality Modality Other 12/31/2015 10:0 9 PM EDT Unknown Unknown IMG ECG ORDERABLES Final Result * (ABNORMAL) GLUCOSE METER POC (12/28/2015 4:30 PM EDT) Glucose Meter POC 142(H) 70 - 100 mg/dL [facility] Blood specimen (specimen) 12/28/2015 4:30 PM EDT 12/28/2015 4:30 PM EDT Campbell Huston MD POINT OF CARE TEST ORDERABLES Fi nal Result Performing Organization Address [facility] de Phone Number [facility] [address] [place] [address] * HEPARIN ANTI-XA, UNF (12/28/2015 2:54 PM EDT) Heparin Level UNF 0.61 0.30 - 0.70 IU/mL [facility] Comment:The therapeutic rang e for heparinized patients monitored by the Heparin Lvl UF is 0.30-0.70 IU/mL. Blood specimen (specimen) 12/28/2015 2:54 PM EDT 12/28/2015 3:00 PM EDT Campbell Huston MD HEMATOLOGY ORDERABLES Final Resu lt Performing Organization Address City/[facility]/ZIP Co de Phone Number [facility] [address] [facility] [place] [address] * GLUCOSE METER POC (12/28/2015 12:02 PM EDT) Glucose Meter POC 100 70 - 100 mg/dL [facility] Blood specimen (specimen) 12/28/2015 12:02 PM EDT 12/28/2015 12:02 PM EDT us Campbell Huston MD POINT OF CARE TEST ORDERABLES Fi nal Result Performing Organization Address [facility] de Phone Number [facility] [address] [facility] [place] [address] * GLUCOSE METER POC (12/28/2015 9:04 AM EDT) Glucose Meter POC 89 70 - 100 mg/dL [facility] Blood specimen (specimen) 12/28/2015 9:04 AM EDT 12/28/2015 9:04 AM EDT us Campbell Huston MD POINT OF CARE TEST ORDERABLES Fi nal Result Performing Organization Address [facility] de Phone Number [facility] [address] [facility] [place] [address] * (ABNORMAL) HEPARIN ANTI-XA, UNF (12/28/2015 6:51 AM EDT) Heparin Level UNF 0.92(H) 0.30 - 0.70 IU/mL [facility] Comment:The therapeutic rang e for heparinized patients monitored by the Heparin Lvl UF is 0.30-0.70 IU/mL. Blood specimen (specimen) 12/28/2015 6:51 AM EDT 12/28/2015 7:10 AM EDT Narrative [facility] - 12/28/2015 7:25 AM EDT Heparin anti-Xa unfractionated level every day while on heparin us Campbell Huston MD HEMATOLOGY ORDERABLES Final Resu lt Performing Organization Address [facility] Co de Phone Number [facility] [address] [place] [address] * PT / INR (12/28/2015 6:51 AM EDT) [facility] PT 12.5 10.1 - 12.9 second(s) [facility] INR 1.08 0.88 - 1.12 [facility] Comment: Level of Therapy ??Indications ??Target INR Range Standard Dose Treatment and prophylaxis of venous 2.0 - 3.0 ??thrombosis, pulmonary embolism ?High Dose High risk patients with mechanical ?2.5 - 3.5 ??heart valves Blood specimen (specimen) 12/28/2015 6:51 AM EDT 12/28/2015 8:05 AM EDT Narrative [facility] - 12/28/2015 8:11 AM EDT PT/INR only if patient is on Coumadin. ??Notify leak operator paraffin plant if INR is 1.8 or greater us Kaushik Perea MD HEMATOLOGY ORDERABLES Final Resu lt [facility] [address] [facility] [place] [address] * DIFFERENTIAL (12/28/2015 4:05 AM EDT) [facility] Neut Percent 56.5 % [facility] Lymph Percent 31.7 % [facility] [place] Percent 6.4 % [facility] Eos Percent 4.5 % [facility] Baso Percent 0.9 % [facility] Neut# 3.8 1.8 - 7.7 x10(3)/mcL [facility] Lymph# 2.2 0.6 - 4.8 x10(3)/mcL [facility] [place]# 0.4 0.0 - 1.3 x10(3)/mcL [facility] Eos# 0.3 0.0 - 0.5 x10(3)/mcL [facility] Baso# 0.1 0.0 - 0.2 x10(3)/mcL [facility] Blood specimen (specimen) 12/28/2015 4:05 AM EDT 12/28/2015 4:51 AM EDT Campbell Huston MD HEMATOLOGY ORDERABLES Final Resu lt Performing Organization Address [facility] Co de Phone Number [facility] [address] [place] [address] * MAGNESIUM LEVEL (12/28/2015 4:05 AM EDT) Magnesium 2.0 1.6 - 2.4 mg/dL [facility] Blood specimen (specimen) UPPER LIMB STRUCTURE / Unknown 12/28/2015 4:05 AM EDT 12/28/2015 4:50 AM EDT Campbell Huston MD CHEMISTRY ORDERABLES Final Resul t Performing Organization Address [facility] de Phone Number [facility] [address] [place] [address] * CBC WITH AUTO DIFF (12/28/2015 4:05 AM EDT) WBC 6.8 4.0 - 11.0 x10(3)/mcL [facility] RBC 4.08 3.80 - 5.10 x10(6)/mcL [facility] Hgb 12.0 12.0 - 15.6 gm/dL [facility] Hct 35.8 35.7 - 45.9 % [facility] MCV 87.7 82.5 - 99.8 fL [facility] MCH 29.4 27.0 - 34.3 pg [facility] MCHC 33.6 32.1 - 35.3 gm/dL [facility] RDW 14.0 11.5 - 15.0 % [facility] Platelet 144 144 - 423 x10(3)/mcL [facility] MPV 10.2 6.8 - 10.8 fL [facility] Blood specimen (specimen) UPPER LIMB STRUCTURE / Unknown 12/28/2015 4:05 AM EDT 12/28/2015 4:51 AM EDT Result [facility] Campbell Huston MD HEMATOLOGY ORDERABLES Final Resu lt Performing Organization Address [facility] de Phone Number [facility] [address] [facility] [place] [address] * (ABNORMAL) BASIC METABOLIC PANEL (12/28/2015 4:05 AM EDT) [facility] Sodium 141 136 - 145 mmol/L [facility] Potassium 4.2 3.5 - 5.0 mmol/L [facility] Chloride 103 98 - 107 mmol/L [facility] Total CO2 27 22 - 29 mmol/L [facility] Anion Gap 11 7 - 16 mmol/L [facility] Calcium 8.4(L) 8.8 - 10.2 mg/dL [facility] Glucose Lvl 134(H) 82 - 100 mg/dL [facility] BUN 24(H) 8 - 23 mg/dL [facility] Creatinine 1.16 0.51 - 1.30 mg/dL [facility] GFR Afr Am 57 [facility] GFR Non Afr Am 47 [facility] Blood specimen (specimen) UPPER LIMB STRUCTURE / Unknown 12/28/2015 4:05 AM EDT 12/28/2015 4:50 AM EDT Result [facility] Campbell Huston MD CHEMISTRY ORDERABLES Edited Resu lt - Final Performing Organization Address [facility] Co de Phone Number [facility] [address] [facility] [place] [address] * SCANNED RHYTHM STRIPS (12/28/2015 3:02 AM EDT) Anatomical Region Laterality Modality Other 12/28/2015 3:02 AM EDT Unknown Unknown IMG ECG ORDERABLES Final Result * (ABNORMAL) HEPARIN ANTI-XA, UNF (12/27/2015 10:58 PM EDT) Heparin Level UNF 0.92(H) 0.30 - 0.70 IU/mL [facility] Comment:The therapeutic rang e for heparinized patients monitored by the Heparin Lvl UF is 0.30-0.70 IU/mL. Blood specimen (specimen) 12/27/2015 10:58 PM EDT 12/27/2015 11:01 PM EDT us Kaushik Perea MD HEMATOLOGY ORDERABLES Final Resu lt Performing Organization Address [facility] de Phone Number [facility] [address] [place] [address] * GLUCOSE METER POC (12/27/2015 8:49 PM EDT) Glucose Meter POC 79 70 - 100 mg/dL [facility] Blood specimen (specimen) 12/27/2015 8:49 PM EDT 12/27/2015 8:49 PM EDT us Campbell Huston MD POINT OF CARE TEST ORDERABLES Fi nal Result Performing Organization Address [facility] Phone Number [facility] [address] [facility] [place] [address] * HEPARIN ANTI-XA, UNF (12/27/2015 5:06 PM EDT) Heparin Level UNF 0.68 0.30 - 0.70 IU/mL [facility] Comment:The therapeutic rang e for heparinized patients monitored by the Heparin Lvl UF is 0.30-0.70 IU/mL. Blood specimen (specimen) 12/27/2015 5:06 PM EDT 12/27/2015 5:11 PM EDT us Kaushik Perea MD HEMATOLOGY ORDERABLES Final Resu lt Performing Organization Address City/[facility] Co de Phone Number [facility] [address] [place] [address]. [place] [address] * GLUCOSE METER POC (12/27/2015 5:05 PM EDT) Glucose Meter POC 91 70 - 100 mg/dL [facility] Blood specimen (specimen) 12/27/2015 5:05 PM EDT 12/27/2015 5:05 PM EDT us Campbell Huston MD POINT OF CARE TEST ORDERABLES Fi nal Result [facility] [address] [facility] [place] [address] * IR ULTRASOUND GUIDED VASCULAR ACCESS (12/27/2015 2:20 PM EDT) Anatomical Region Laterality Modality Interventional R adiology 12/27/2015 2:20 PM EDT Impressions 12/27/2015 2:29 PM EDT SUCCESSFUL AND UNCOMPLICATED ULTRASOUND AND FLUOROSCOPICALLY GUIDED PLACEMENT OF PICC. ??PICC READY FOR IMMEDIATE USE. Narrative 12/27/2015 2:29 PM EDT ULTRASOUND AND FLUOROSCOPICALLY GUIDED PICC LINE INSERTION:12/27/2015 2:20 PM CLINICAL HISTORY: ICD-10, Z45.2, encounter for adjustment and management of vascular access device. TECHNICAL FACTORS AND FINDINGS: Procedure was performed by Patricia Lieberman [facility] under the supervision of Dr. Asad Wayne. ??Ultrasound interrogation performed of the right basilic vein. ??It is shown to be patent and compressible. ?? This was documented with a permanent image. The catheter was placed using all elements of maximal sterile barrier technique as well as all elements of sterile ultrasound technique. Following sterile skin preparation and local anesthesia under ultrasound guidance the vein was punctured. ??This allowed guide wire and introducer sheath insertion. Through the introducer sheath a PICC was inserted. ??Catheter tip was positioned at the cavo-atrial junction. ??This was documented with a single fluoroscopic spot film. Catheter was cut to 38 cm. ??Fluoroscopy time 0.1 minutes. Catheter aspirated and flushed freely. ??The catheter was secured to the skin surface. ??A sterile dressing was applied. Patient tolerated the procedure well and left the Radiology Department in stable condition. ?? Procedure Note Luis E Wayne MD - 12/27/2015 ULTRASOUND AND FLUOROSCOPICALLY GUIDED PICC LINE INSERTION:12/27/2015 2:20PM CLINICAL HISTORY: ICD-10, Z45.2, encounter for adjustment and managementof vascular access device. TECHNICAL FACTORS AND FINDINGS: Procedure was performed by Patricia Lieberman [facility] under the supervision of Dr.Brad Wayne. Ultrasound interrogation performed of the right basilic vein. Itis shown to be patent and compressible. This was documented with apermanent image. The catheter was placed using all elements of maximal sterile barriertechnique as well as all elements of sterile ultrasound technique. Following sterileskin preparation and local anesthesia under ultrasound guidance the vein was punctured. This allowed guide wire and introducer sheath insertion.Through the introducer sheath a PICC was inserted. Catheter tip was positioned atthe cavo-atrial junction. This was documented with a single fluoroscopic spotfilm. Catheter was cut to 38 cm. Fluoroscopy time 0.1 minutes. Catheter aspirated and flushed freely. The catheter was secured to theskin surface. A sterile dressing was applied. Patient tolerated the procedurewell and left the Radiology Department in stable condition. IMPRESSION SUCCESSFUL AND UNCOMPLICATED ULTRASOUND AND FLUOROSCOPICALLY GUIDEDPLACEMENT OF PICC. PICC READY FOR IMMEDIATE USE. Campbell Huston MD IMG IR ORDERABLES Final Result * IR PICC INSERTION EQUAL OR > 5 YEARS (12/27/2015 2:20 PM EDT) Anatomical Region Laterality Modality Interventional R adiology 12/27/2015 2:20 PM EDT Impressions 12/27/2015 2:29 PM EDT SUCCESSFUL AND UNCOMPLICATED ULTRASOUND AND FLUOROSCOPICALLY GUIDED PLACEMENT OF PICC. ??PICC READY FOR IMMEDIATE USE. Narrative 12/27/2015 2:29 PM EDT ULTRASOUND AND FLUOROSCOPICALLY GUIDED PICC LINE INSERTION:12/27/2015 2:20 PM CLINICAL HISTORY: ICD-10, Z45.2, encounter for adjustment and management of vascular access device. TECHNICAL FACTORS AND FINDINGS: Procedure was performed by Patricia Lieberman [facility] under the supervision of Dr. Asad Wayne. ??Ultrasound interrogation performed of the right basilic vein. ??It is shown to be patent and compressible. ?? This was documented with a permanent image. The catheter was placed using all elements of maximal sterile barrier technique as well as all elements of sterile ultrasound technique. Following sterile skin preparation and local anesthesia under ultrasound guidance the vein was punctured. ??This allowed guide wire and introducer sheath insertion. Through the introducer sheath a PICC was inserted. ??Catheter tip was positioned at the cavo-atrial junction. ??This was documented with a single fluoroscopic spot film. Catheter was cut to 38 cm. ??Fluoroscopy time 0.1 minutes. Catheter aspirated and flushed freely. ??The catheter was secured to the skin surface. ??A sterile dressing was applied. Patient tolerated the procedure well and left the Radiology Department in stable condition. ?? Procedure Note Luis E Wayne MD - 12/27/2015 ULTRASOUND AND FLUOROSCOPICALLY GUIDED PICC LINE INSERTION:12/27/2015 2:20PM CLINICAL HISTORY: ICD-10, Z45.2, encounter for adjustment and managementof vascular access device. TECHNICAL FACTORS AND FINDINGS: Procedure was performed by Patricia [facility] under the supervision of Dr.Brad Wayne. Ultrasound interrogation performed of the right basilic vein. Itis shown to be patent and compressible. This was documented with apermanent image. The catheter was placed using all elements of maximal sterile barriertechnique as well as all elements of sterile ultrasound technique. Following sterileskin preparation and local anesthesia under ultrasound guidance the vein was punctured. This allowed guide wire and introducer sheath insertion.Through the introducer sheath a PICC was inserted. Catheter tip was positioned atthe cavo-atrial junction. This was documented with a single fluoroscopic spotfilm. Catheter was cut to 38 cm. Fluoroscopy time 0.1 minutes. Catheter aspirated and flushed freely. The catheter was secured to theskin surface. A sterile dressing was applied. Patient tolerated the procedurewell and left the Radiology Department in stable condition. IMPRESSION SUCCESSFUL AND UNCOMPLICATED ULTRASOUND AND FLUOROSCOPICALLY GUIDEDPLACEMENT OF PICC. PICC READY FOR IMMEDIATE USE. Campbell Huston MD IM IR ORDERABLES Final Result * (ABNORMAL) GLUCOSE METER POC (12/27/2015 11:50 AM EDT) [facility] Glucose Meter POC 153(H) 70 - 100 mg/dL [facility] Blood specimen (specimen) 12/27/2015 11:50 AM EDT 12/27/2015 11:50 AM EDT us Campbell Huston MD POINT OF CARE TEST ORDERABLES Fi nal Result Performing Organization Address [facility] de Phone Number [facility] POINT OF CARE LABORATORY [address] [place] [address] * MAGNESIUM LEVEL (12/27/2015 9:58 AM EDT) [facility] Magnesium 2.0 1.6 - 2.4 mg/dL [facility] Blood specimen (specimen) UPPER LIMB STRUCTURE / Unknown 12/27/2015 9:58 AM EDT 12/27/2015 10:18 AM EDT us Kaushik Perea MD CHEMISTRY ORDERABLES Final Resul t Performing Organization Address [facility] de Phone Number [facility] [address] [id number] * THYROID STIMULATING HORMONE (12/27/2015 9:58 AM EDT) [facility] TSH 3.090 0.270 - 4.200 mcIU/mL [facility] Blood specimen (specimen) 12/27/2015 9:58 AM EDT 12/27/2015 2:27 PM EDT us Kaushik Perea MD CHEMISTRY ORDERABLES Final Resul t Performing Organization Address [facility] de Phone Number [facility] [address] [place] [address] * (ABNORMAL) BASIC METABOLIC PANEL (12/27/2015 9:58 AM EDT) [facility] Sodium 139 136 - 145 mmol/L [facility] Potassium 3.9 3.5 - 5.0 mmol/L [facility] Chloride 100 98 - 107 mmol/L [facility] Total CO2 29 22 - 29 mmol/L [facility] Anion Gap 10 7 - 16 mmol/L [facility] Calcium 8.7(L) 8.8 - 10.2 mg/dL [facility] Glucose Lvl 227(H) 82 - 100 mg/dL [facility] BUN 37(H) 8 - 23 mg/dL [facility] Creatinine 1.59(H) 0.51 - 1.30 mg/dL [facility] GFR Afr Am 40 [facility] GFR Non Afr Am 33 [facility] Blood specimen (specimen) UPPER LIMB STRUCTURE / Unknown 12/27/2015 9:58 AM EDT 12/27/2015 10:18 AM EDT us Kaushik Perea MD CHEMISTRY ORDERABLES Edited Resu lt - Final Performing Organization Address [facility] de Phone Number [address] [address] * (ABNORMAL) HEPARIN ANTI-XA, UNF (12/27/2015 9:58 AM EDT) Heparin Level UNF 0.94(H) 0.30 - 0.70 IU/mL [facility] Comment:The therapeutic rang e for heparinized patients monitored by the Heparin Lvl UF is 0.30-0.70 IU/mL. Blood specimen (specimen) 12/27/2015 9:58 AM EDT 12/27/2015 10:17 AM EDT Narrative [facility] - 12/27/2015 10:36 AM EDT Pt in echo 12/27/2015 09:07 [email or web address] us Kaushik Perea MD HEMATOLOGY ORDERABLES Final Resu lt Performing Organization Address [facility] Co de Phone Number [facility] [address] [place] [address] * EC ECHOCARDIOGRAM COMPLETE W DOPPLER AND COLOR FLOW MAPPING (12/27/2015 9:20 AM EDT) Ejection Fraction 60-65 % [place] Anatomical Region Laterality Modality Electrocardiogra phy 12/27/2015 8:42 AM EDT Impressions 12/27/2015 12:41 PM EDT ??CONCLUSIONS ??Left ventricular ejection fraction is in the normal range. ?[id number] tricuspid regurgitation. RVSP estimated to be: 32 mmHg + JVP. Narrative Procedure Note Kaushik Perea MD - 12/27/2015 IMPRESSION CONCLUSIONS Left ventricular ejection fraction is in the normal range. [id number]-[id number] tricuspid regurgitation. RVSP estimated to be: 32mmHg + JVP. us Campbell Huston MD IMG ECHO ORDERABLES Final Result * GLUCOSE METER POC (12/27/2015 7:12 AM EDT) [facility] Glucose Meter POC 98 70 - 100 mg/dL [facility] POINT OF CARE LABORATORY Blood specimen (specimen) 12/27/2015 7:12 AM EDT 12/27/2015 7:12 AM EDT us Campbell Huston MD POINT OF CARE TEST ORDERABLES Fi nal Result [facility] POINT OF CARE LABORATORY [address] [facility] [place] [address] * (ABNORMAL) BASIC METABOLIC PANEL (12/27/2015 5:29 AM EDT) [facility] Sodium 142 136 - 145 mmol/L [facility] Potassium 3.9 3.5 - 5.0 mmol/L [facility] Chloride 101 98 - 107 mmol/L [facility] Total CO2 26 22 - 29 mmol/L [facility] Anion Gap 15 7 - 16 mmol/L [facility] Calcium 8.8 8.8 - 10.2 mg/dL [facility] Glucose Lvl 89 82 - 100 mg/dL [facility] BUN 37(H) 8 - 23 mg/dL [facility] Creatinine 1.62(H) 0.51 - 1.30 mg/dL [facility] GFR Afr Am 39 [facility]. [facility] GFR Non Afr Am 32 [facility] [place] Blood specimen (specimen) UPPER LIMB STRUCTURE / Unknown 12/27/2015 5:29 AM EDT 12/27/2015 6:19 AM EDT us Campbell Huston MD CHEMISTRY ORDERABLES Edited Resu lt - Final Performing Organization Address City/[facility]/ZIP Co de Phone Number [facility] [address] [place] [address] * CBC (12/27/2015 5:29 AM EDT) WBC 6.5 4.0 - 11.0 x10(3)/mcL [facility] RBC 4.13 3.80 - 5.10 x10(6)/mcL [facility] Hgb 12.1 12.0 - 15.6 gm/dL [facility] Hct 36.3 35.7 - 45.9 % [facility] MCV 87.9 82.5 - 99.8 fL [facility] MCH 29.3 27.0 - 34.3 pg [facility] MCHC 33.3 32.1 - 35.3 gm/dL [facility] RDW 14.1 11.5 - 15.0 % [facility] Platelet 154 144 - 423 x10(3)/mcL [facility] MPV 9.9 6.8 - 10.8 fL [facility] Blood specimen (specimen) UPPER LIMB STRUCTURE / Unknown 12/27/2015 5:29 AM EDT 12/27/2015 6:20 AM EDT Narrative [facility] - 12/27/2015 6:32 AM EDT Hemogram every 2nd day while on heparin us Kaushik Perea MD HEMATOLOGY ORDERABLES Final Resu lt [facility] [address] [place] [address] * SCANNED RHYTHM STRIPS (12/27/2015 2:39 AM EDT) Anatomical Region Laterality Modality Other 12/27/2015 2:39 AM EDT us Unknown Unknown IMG ECG ORDERABLES Final Result * EK EKG 12 LEAD (12/27/2015 12:35 AM EDT) Anatomical Region Laterality Modality Electrocardiogra phy 12/27/2015 7:43 AM EDT Impressions 12/27/2015 4:01 PM EDT ? Stationary ECG Study ? [facility] ? Interpretive Statements ? SINUS RHYTHM WITH FREQUENT ECTOPIC PREMATURE COMPLEXES LOW QRS VOLTAGE IN PRECORDIAL LEADS [QRS DEFLECTION < 1.0 mV IN CHEST LEADS] POSSIBLE ANTERIOR MYOCARDIAL INFARCTION [30 ms Q WAVE IN V3/V4, OR R < 0.2 mV IN V4], OF INDETERMINATE AGE INFERIOR MYOCARDIAL INFARCTION [40+ ms Q WAVE AND/OR ST/T ABNORMALITY IN II/aVF], OF INDETERMINATE AGE NO ??CHANGE Follow up tracing suggested Electronically Signed On 12-27-2015 16:01:01 EDT by Kamari Goss MD Narrative Procedure Note Kamari Goss MD - 12/27/2015 IMPRESSION Stationary ECG Study [place] [facility] [place] Interpretive Statements SINUS RHYTHM WITH FREQUENT ECTOPIC PREMATURE COMPLEXES LOW QRS VOLTAGE IN PRECORDIAL LEADS [QRS DEFLECTION < 1.0 mV IN CHESTLEADS] POSSIBLE ANTERIOR MYOCARDIAL INFARCTION [30 ms Q WAVE IN V3/V4, OR R < 0.2mV IN V4], OF INDETERMINATE AGE INFERIOR MYOCARDIAL INFARCTION [40+ ms Q WAVE AND/OR ST/T ABNORMALITY IN II/aVF], OF INDETERMINATE AGE NO CHANGE Follow up tracing suggested Electronically Signed On 12-27-2015 16:01:01 EDT by Kamari Goss MD us Tr Henry MD IMG ECG ORDERABLES Final Resu lt * (ABNORMAL) HEPARIN ANTI-XA, UNF (12/27/2015 12:15 AM EDT) Heparin Level UNF 1.12(C) 0.30 - 0.70 IU/mL [facility] Comment:The therapeutic rang e for heparinized patients monitored by the Heparin Lvl UF is 0.30-0.70 IU/mL. Blood specimen (specimen) 12/27/2015 12:15 AM EDT 12/27/2015 2:32 AM EDT us Kaushik Perea MD HEMATOLOGY ORDERABLES Final Resu lt [facility] [address] [place] [address] * PT / INR (12/26/2015 7:07 PM EDT) PT 11.7 10.1 - 12.9 second(s) [facility] INR 1.02 0.88 - 1.12 [facility] Comment: Level of Therapy ??Indications ??Target INR Range Standard Dose Treatment and prophylaxis of venous 2.0 - 3.0 ??thrombosis, pulmonary embolism ?High Dose High risk patients with mechanical ?2.5 - 3.5 ??heart valves Blood specimen (specimen) UPPER LIMB STRUCTURE / Unknown 12/26/2015 7:07 PM EDT 12/26/2015 7:14 PM EDT us Kaushik Perea MD HEMATOLOGY ORDERABLES Final Resu lt Performing Organization Address [facility] Phone Number [facility] [address] [place] [address] * PARTIAL THROMBOPLASTIN TIME (12/26/2015 7:07 PM EDT) PTT 28.2 26.0 - 36.4 second(s) [facility] Comment: Therapeutic range for direct thrombin inhibitors: Argatroban is 1.5 to 3 times the aPTT baseline. Lepirudin is 1.5 to 2 times the aPTT baseline. The aPTT should not exceed 100 seconds. The dosage of Argatroban should be decreased in patients with hepatic impairment. ??The dosage of Lepirudin should be decreased in renal insufficiency. The aPTT is no longer the appropriate test to monitor unfractionated heparin anticoagulation. Blood specimen (specimen) UPPER LIMB STRUCTURE / Unknown 12/26/2015 7:07 PM EDT 12/26/2015 7:14 PM EDT us Kaushik Perea MD HEMATOLOGY ORDERABLES Final [facility] Performing Organization Address [facility] de Phone Number [facility] [address] [place] [address] * (ABNORMAL) BASIC METABOLIC PANEL (12/26/2015 7:07 PM EDT) Sodium 143 136 - 145 mmol/L [facility] Potassium 4.2 3.5 - 5.0 mmol/L [facility] Chloride 100 98 - 107 mmol/L [facility] Total CO2 24 22 - 29 mmol/L [facility] Anion Gap 19(H) 7 - 16 mmol/L [facility] Calcium 8.9 8.8 - 10.2 mg/dL [facility] Glucose Lvl 110(H) 82 - 100 mg/dL [facility] BUN 41(H) 8 - 23 mg/dL [facility] Creatinine 2.04(H) 0.51 - 1.30 mg/dL [facility] GFR Afr Am 30 [facility] GFR Non Afr Am 25 [facility] Blood specimen (specimen) UPPER LIMB STRUCTURE / Unknown 12/26/2015 7:07 PM EDT 12/26/2015 7:14 PM EDT Campbell Huston MD CHEMISTRY ORDERABLES Final Resul t Performing Organization Address [facility] Co de Phone Number [address] [address] * TROPONIN-T (12/26/2015 7:07 PM EDT) Troponin-T <0.01 <=0.00 ng/mL [facility] Comment: Values > or = 0.01 ng/mL have been shown to have prognostic value. Blood specimen (specimen) 12/26/2015 7:07 PM EDT 12/26/2015 7:14 PM EDT us Tr Henry MD CHEMISTRY ORDERABLES Final Re sult Performing Organization Address City/[facility] Co de Phone Number [address] [address] * TROPONIN-T (12/26/2015 3:25 PM EDT) Troponin-T <0.01 <=0.00 ng/mL [facility] Comment: Values > or = 0.01 ng/mL have been shown to have prognostic value. Blood specimen (specimen) 12/26/2015 3:25 PM EDT 12/26/2015 3:33 PM EDT us Tr Henry MD CHEMISTRY ORDERABLES Final Re sult [facility] [address] [facility] [place], [place] [id number] * XR CHEST PA AND LATERAL (12/26/2015 1:27 PM EDT) Anatomical Region Laterality Modality Chest Radiographic Whit ging 12/26/2015 1:27 PM EDT Impressions 12/26/2015 1:34 PM EDT No acute disease. Narrative 12/26/2015 1:34 PM EDT TWO-VIEW CHEST, 12/26/2015 at 1317 HISTORY: -SHORTNESS OF BREATH FINDINGS: Comparison 09/29/2015. Heart size is enlarged but stable. The lungs are clear. Procedure Note Luis E Wayne MD - 12/26/2015 TWO-VIEW CHEST, 12/26/2015 at 1317 HISTORY: -SHORTNESS OF BREATH FINDINGS: Comparison 09/29/2015. Heart size is enlarged but stable. The lungs are clear. IMPRESSION No acute disease. us Tr Henry MD IMG DIAGNOSTIC IMAGING ORDERA BLES Final Result * DIFFERENTIAL (12/26/2015 1:14 PM EDT) Neut Percent 62.6 % [facility] Lymph Percent 24.2 % [facility] [place] Percent 7.1 % [facility] Eos Percent 5.3 % [facility] Baso Percent 0.8 % [facility] Neut# 6.2 1.8 - 7.7 x10(3)/mcL [facility] Lymph# 2.4 0.6 - 4.8 x10(3)/mcL [facility] [place]# 0.7 0.0 - 1.3 x10(3)/mcL [facility] Eos# 0.5 0.0 - 0.5 x10(3)/mcL [facility] Baso# 0.1 0.0 - 0.2 x10(3)/mcL [facility] Blood specimen (specimen) 12/26/2015 1:14 PM EDT 12/26/2015 1:14 PM EDT [facility] HEMATOLOGY ORDERABL ES Final Result Performing Organization Address [facility] Phone Number [facility] [address] [place] [address] * (ABNORMAL) NT PROBNP (12/26/2015 1:14 PM EDT) Pathologist [facility] NT Pro-BNP 1,172(H) <=319 pg/mL [facility] Comment: An NT pro-BNP level less than 300 pg/mL in any patient, regardless of age, Effectively rules out acute CHF with a 99% negative predictive value. Blood specimen (specimen) UPPER LIMB STRUCTURE / Unknown 12/26/2015 1:14 PM EDT 12/26/2015 1:14 PM EDT Result [facility] Tr Henry MD CHEMISTRY ORDERABLES Final Re sult Performing Organization Address [facility] Phone Number [facility] [address] [place] [address] * TROPONIN-T (12/26/2015 1:14 PM EDT) [facility] Troponin-T <0.01 <=0.00 ng/mL [facility] Comment: Values > or = 0.01 ng/mL have been shown to have prognostic value. Blood specimen (specimen) 12/26/2015 1:14 PM EDT 12/26/2015 1:14 PM EDT Result [facility] Tr Henry MD CHEMISTRY ORDERABLES Final Re sult Performing Organization Address [facility] de Phone Number [facility] [address] [place] [address] * (ABNORMAL) BASIC METABOLIC PANEL (12/26/2015 1:14 PM EDT) [facility] Sodium 141 136 - 145 mmol/L [facility] Potassium 4.0 3.5 - 5.0 mmol/L [facility] Chloride 100 98 - 107 mmol/L [facility] Total CO2 28 22 - 29 mmol/L [facility] Anion Gap 13 7 - 16 mmol/L [facility] Calcium 9.0 8.8 - 10.2 mg/dL [facility] Glucose Lvl 74(L) 82 - 100 mg/dL [facility] BUN 41(H) 8 - 23 mg/dL [facility] Creatinine 1.96(H) 0.51 - 1.30 mg/dL [facility] GFR Afr Am 31 [facility] GFR Non Afr Am 26 [facility] Blood specimen (specimen) UPPER LIMB STRUCTURE / Unknown 12/26/2015 1:14 PM EDT 12/26/2015 1:14 PM EDT Tr Henry MD CHEMISTRY ORDERABLES Edited R esult - Final [facility] [address] [phone] * CBC WITH AUTO DIFF (12/26/2015 1:14 PM EDT) WBC 9.9 4.0 - 11.0 x10(3)/mcL [facility] RBC 4.45 3.80 - 5.10 x10(6)/mcL [facility] Hgb 13.0 12.0 - 15.6 gm/dL [facility] Hct 38.9 35.7 - 45.9 % [facility] MCV 87.3 82.5 - 99.8 fL [facility] MCH 29.3 27.0 - 34.3 pg [facility] MCHC 33.5 32.1 - 35.3 gm/dL [facility] RDW 14.2 11.5 - 15.0 % [facility] Platelet 203 144 - 423 x10(3)/mcL [facility] MPV 9.4 6.8 - 10.8 fL [facility] Blood specimen (specimen) UPPER LIMB STRUCTURE / Unknown 12/26/2015 1:14 PM EDT 12/26/2015 1:14 PM EDT us Tr Henry MD HEMATOLOGY ORDERABLES Final R esult [facility] [address] [place] [address] * EK EKG 12 LEAD (12/26/2015 12:42 PM EDT) Anatomical Region Laterality Modality Electrocardiogra phy 12/26/2015 12:5 4 PM EDT Impressions 12/26/2015 4:23 PM EDT ? Stationary ECG Study ? [place] [facility] ? Interpretive Statements ? ATRIAL FLUTTER POSSIBLE ANTERIOR MYOCARDIAL INFARCTION, OF INDETERMINATE AGE INFERIOR MYOCARDIAL INFARCTION, OF INDETERMINATE AGE A FLUTTER IS NEW COMPARED TO PREVIOUS ECG Electronically Signed On 12-26-2015 16:23:09 EDT by Abundio Marin MD Narrative Procedure Note Abundio Marin MD - 12/26/2015 IMPRESSION Stationary ECG Study 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) Acute renal failure, unspecified acute renal failure type (HCC) Essential hypertension Unspecified essential hypertension History of CVA (cerebrovascular accident) Transient ischemic attack (TIA), and cerebral infarction without residual deficits JACK (acute kidney injury) (HCC) Acute kidney failure, unspecified Acute on chronic diastolic (congestive) heart failure (HCC) Angina pectoris (HCC) Other and unspecified angina pectoris documented in this encounter Administered Medications Inactive Administered Medications - up to 1 most recent administrations Medication Order MAR Action Action Date Dose Rate Site 0.9 % NaCl infusion Intravenous, at 100 mL/hr, CONTINUOUS, Starting on Francine 12/26/15 at 1400, Until Francine 12/26/15 at 1636 New Bag 12/26/2015 2:04 PM EDT 100 mL/hr 100 mL/hr 0.9 % NaCl infusion Intravenous, at 100 mL/hr, CONTINUOUS, Starting on Wed12/27/15 at 1145, Until 12/28/15 at 0800 New Bag 12/28/2015 12:48 AM EDT 100 mL/hr 0.9 % NaCl infusion Intravenous, at 150 mL/hr, CONTINUOUS, Starting on 12/28/15 at 0930, Until 12/28/15 at 1324, Start 2 hours prior to procedure at 150 mL/hr. If Sodium Bicarbonate drip to infuse, 0.9% Normal Saline to infuse at Keep Open Rate., Pre-op (Floor Meds) New Bag 12/28/2015 10:35 AM EDT 1,000 mL 150 mL/hr acetaminophen (OFIRMEV) infusion 1,000 mg 1,000 mg, Intravenous, EVERY 6 HOURS PRN, Starting on Francine 12/26/15 at 1620, Until 12/28/15 at 1938, Pain, For Mild to Moderate Pain if oral route not available, Administer over 15 Minutes, Maximum adult dose of acetaminophen is 4000 mg from all sources in 24 hours. acetaminophen (TYLENOL) suppository 650 mg 650 mg, Rectal, EVERY 4 HOURS PRN, Starting on Francine 12/26/15 at 1620, Until 12/28/15 at 1938, Fever, Headaches, Maximum adult dose of acetaminophen is 4000 mg from all sources in 24 hours. acetaminophen (TYLENOL) tablet 650 mg 650 mg, Oral, EVERY 4 HOURS PRN, Starting on Francine 12/26/15 at 1620, Until 12/28/15 at 1938, Fever, Headaches, Maximum adult dose of acetaminophen is 4000 mg from all sources in 24 hours. ARIPiprazole (ABILIFY) tablet 30 mg 30 mg, Oral, DAILY, First dose on Wed12/27/15 at 0900, Until Discontinued Given 12/28/2015 8:27 AM EDT 30 mg aspirin EC tablet 81 mg 81 mg, Oral, DAILY, First dose on Wed12/27/15 at 0900, Until Discontinued Given 12/27/2015 9:39 AM EDT 81 mg aspirin tablet 325 mg 325 mg, Oral, ONCE, 1 dose, On Francine 12/26/15 at 1400 Given 12/26/2015 2:04 PM EDT 325 mg aspirin tablet 325 mg 325 mg, Oral, DAILY, First dose on 12/28/15 at 0930, Until Discontinued, Only give pre-procedure if patient did not take ordered aspirin at home, Pre-op (Floor Meds) dextrose 50 % solution 25 mL 25 mL, Intravenous, PRN, Starting on Francine 12/26/15 at 2205, Until 12/28/15 at 1938, Low blood sugar, If FSBS <70 mg/dl and patient cannot take orally, Check FSBS every 15 minutes and repeat 25 mL of D50 IV push and notify physician if FSBS <70 mg/dl VESICANT ferrous sulfate tablet 325 mg 325 mg, Oral, 2 TIMES DAILY WITH MEALS, First dose on Francine 12/26/15 at 1915, Until Discontinued Given 12/28/2015 5:35 PM EDT 325 mg fUROsemide (LASix) injection 40 mg 40 mg, Intravenous, ONCE, 1 dose, On Francine 12/26/15 at 1900, MAXIMUM ADMINISTRATION RATE = 40 mg/min Given 12/26/2015 6:11 PM EDT 40 mg gabapentin (NEURONTIN) capsule 100 mg 100 mg, Oral, NIGHTLY, First dose on Francine 12/26/15 at 2100, Until Discontinued Given 12/27/2015 8:44 PM EDT 100 mg glipiZIDE (GLUCOTROL) tablet 10 mg 10 mg, Oral, 2 TIMES DAILY WITH MEALS, First dose on Francine 12/26/15 at 1915, Until Discontinued Given 12/26/2015 8:14 PM EDT 10 mg glucagon (human recombinant) (GLUCAGEN) injection 1 mg 1 mg, Intramuscular, PRN, Starting on Francine 12/26/15 at 2205, Until 12/28/15 at 1938, Low blood sugar, If FSBS less than 70 mg/dl, patient cannot take orally and without IV access, If patient is without IV access, give Glucagon 1 mg Intramuscularly, insert IV and call physician. heparin (porcine) injection 8,000 Units 8,000 Units, Intravenous, ONCE, 1 dose, On Francine 12/26/15 at 2000 Given 12/26/2015 11:39 PM EDT 8,000 Units heparin 25,000 units in 250 mL 0.45% NaCl 1,800 Units/hr (18 mL/hr), Intravenous, CONTINUOUS, Starting on Francine 12/26/15 at 2000, Until Wed12/27/15 at 0249 New Bag 12/26/2015 7:57 PM EDT 1,800 Units/hr 18 mL/hr heparin 25,000 units in 250 mL 0.45% NaCl 950 Units/hr (9.5 mL/hr), Intravenous, CONTINUOUS, Starting on Wed12/27/15 at 0430, Until 12/28/15 at 1938 New Bag 12/28/2015 11:38 AM EDT 950 Units/hr 9.5 mL/hr HYDROcodone-acetaminoph en (NORCO) 5-325 mg per tablet 1-2 Tab 1-2 Tablet, Oral, EVERY 6 HOURS PRN, Starting on Francine 12/26/15 at 1620, Until 12/28/15 at 1938, Pain, Begin with lowest dose unless otherwise directed. Reassess pain in one hour. If pain unrelieved, remainder of dose may be given to patient. Maximum adult dose of acetaminophen is 4000 mg from all sources in 24 hours. Given During Downtime 12/28/2015 3:53 AM EDT 2 Tablets insulin aspart (NovoLOG) injection 1-10 Units 1-10 Units, Subcutaneous, 4 TIMES DAILY WITH MEALS, First dose on Wed12/27/15 at 0800, Until Discontinued, Medium dose algorithm: FSBS Additional [...] hours. Waste Sort Code = BKC Given 12/27/2015 11:55 AM EDT 2 Units linagliptin (TRADJENTA) tablet 5 mg 5 mg, Oral, DAILY, First dose on Wed12/27/15 at 0900, Until Discontinued, Therapeutic interchange as the dipeptidly peptidase-4 (DPP-4) inhibitor of choice. Given 12/28/2015 8:26 AM EDT 5 mg metoprolol (LOPRESSOR) tablet 25 mg 25 mg, Oral, 2 TIMES DAILY, First dose on Wed12/26/15 at 1900, Until Discontinued Given 12/27/2015 9:39 AM EDT 25 mg metoprolol (LOPRESSOR) tablet 50 mg 50 mg, Oral, 2 TIMES DAILY, First dose (after last modification) on Wed12/27/15 at 2100, Until Discontinued Given 12/28/2015 8:26 AM EDT 50 mg nitroGLYCERIN (NITROGLYN) 2 % ointment 1 Inch 1 Inch, Topical, ONCE, 1 dose, On Wed12/26/15 at 1400, Wipe off old dose, apply to chest wall Patch Applied 12/26/2015 2:04 PM EDT 1 Inch nitroGLYCERIN (NITROGLYN) 2 % ointment 1 Inch 1 Inch, Topical, EVERY 6 HOURS SCHEDULED (4 times per day), First dose on Wed12/26/15 at 1800, Until Discontinued, Wipe off old dose, apply to chest wall. ondansetron (ZOFRAN) 4 mg/2 mL injection 4 mg 4 mg, Intravenous, EVERY 6 HOURS PRN, Starting on Wed12/26/15 at 1620, Until 12/28/15 at 1938, Nausea ondansetron (ZOFRAN) tablet 4 mg 4 mg, Oral, EVERY 6 HOURS PRN, Starting on Wed12/26/15 at 1620, Until 12/28/15 at 1938, Nausea pantoprazole (PROTONIX) tablet 40 mg 40 mg, Oral, 2 TIMES DAILY, First dose on Wed12/26/15 at 2100, Until Discontinued, Do not crush or chew Given 12/28/2015 8:27 AM EDT 40 mg risperiDONE (RisperDAL) tablet 2 mg 2 mg, Oral, NIGHTLY, First dose on Francine 12/26/15 at 2100, Until Discontinued Given 12/27/2015 8:44 PM EDT 2 mg roPINIRole (REQUIP) tablet 1.5 mg 1.5 mg, Oral, NIGHTLY, First dose on Francine 12/26/15 at 2100, Until Discontinued Given 12/27/2015 8:44 PM EDT 1.5 mg sodium chloride 0.9% IV line flush 20-50 mL 20-50 mL, Intravenous, at 150-600 mL/hr, PRN, Starting on Wed12/27/15 at 1418, Until 12/28/15 at 1938, Line Care, Flush with a minimum of 20 mL after IVPB to insure complete administration of the dose. May use the saline infusion to back flush IVPB tubing as needed. sodium chloride 0.9% syringe 10 mL 10 mL, Intravenous, EVERY 8 HOURS SCHEDULED (3 times per day), First dose on Wed12/27/15 at 1600, Until Discontinued, Flush with 10 mL saline for saline locked CENTRAL line/PICC/Dialysis pigtail lock maintenance. Given 12/27/2015 10:07 PM EDT 10 mL sodium chloride 0.9% syringe Intravenous, PRN, Starting on Wed12/27/15 at 1418, Until 12/28/15 at 1938, Line Care, Flush with 5-10 mL saline pre/post IVP, 10 mL prior to IVPB or blood product administration, and 20 mL post blood draws for CENTRAL lines. venlafaxine (EFFEXOR-XR) XR capsule 300 mg 300 mg, Oral, NIGHTLY, First dose on Francine 12/26/15 at 2100, Until Discontinued Given 12/27/2015 8:44 PM EDT 300 mg documented in this encounter Discontinued Medications Medication Sig Discontinue Reason Start Date End Da te NIFEdipine (PROCARDIA XL) 90 mg Oral Tablet Extended Rel 24 hr Take 90 mg by mouth daily. Stop Taking at Discharge 12/26/2015 documented as of this encounter Historical Medications * This list may reflect changes made after this encounter. torsemide (DEMADEX) 10 mg Oral Tablet Take 10 mg by mouth 2 times daily. 01/02/2016 aspirin 81 mg Oral Tablet, Delayed Release (E.C.) Take 81 mg by mouth daily. 01/21/2017 gabapentin (NEURONTIN) 100 mg Oral Capsule Take 100 mg by mouth 3 times daily. Take 2 capsules by mouth 3 times daily 02/23/2017 added in this encounter Active and Recently Administered Medications Times are shown in EDT. Scheduled Medication Order 12/26/2015 12/27/2015 12/28/2015 ARIPiprazole (ABILIFY) tablet 30 mg 30 mg, Oral, DAILY, First dose on Wed12/27/15 at 0900, Until Discontinued 0940 (Given - Provider: Sandra Engel RN) 0827 (Given - Provider: Sandra Engel RN) aspirin EC tablet 81 mg (CANCELED) 81 mg, Oral, DAILY, First dose on Wed12/27/15 at 0900, Until Discontinued 0939 (Given - Provider: Sandra Engel, ROLF) aspirin tablet 325 mg (COMPLETED) 325 mg, Oral, ONCE, 1 dose, On Francine 12/26/15 at 1400 1404 (Given - Provider: Joanna Smith RN) aspirin tablet 325 mg 325 mg, Oral, DAILY, First dose on 12/28/15 at 0930, Until Discontinued, Only give pre-procedure if patient did not take ordered aspirin at home, Pre-op (Floor Meds) 0930 (Not Given - Provider: Sandra Engel RN - Reason: Other - Comment: gave scheduled 81mg) famotidine (PEPCID) 20 mg/2 mL injection 20 mg 20 mg, Intravenous, ONCE, 1 dose, On 12/28/15 at 0930, Pre-medication for documented allergy to IV contrast and not already addressed. DO NOT ADMINISTER UNLESS PATIENT HAS A DOCUMENTED CONTRAST ALLERGY. Give two hours prior to procedure. Give immediately if less than two hours remain prior to procedure. Dilute with 0.9% Sodium Chloride to total volume of 10 mL and administer over a period not less than 2 minutes. Use 10 mL normal saline to dilute and administer famotidine IV, Pre-op ([facility] Meds) 0930 (Not Given - Provider: Sandra Engel RN - Reason: Order parameters not met - Comment: pt not allergic to dye, pepcid not needed) ferrous sulfate tablet 325 mg 325 mg, Oral, 2 TIMES DAILY WITH MEALS, First dose on Francine 12/26/15 at 1915, Until Discontinued 2012 (Given - Provider: Maureen Devries RN) 0939 (Given - Provider: Sandra Engel RN - Comment: pt at ECHO)1733 (Given - Provider: Sandra Engel RN) 0826 (Given - Provider: Sandra Engel, ROLF)173 (Given - Provider: Leida Miller RN) fUROsemide (LASix) injection 40 mg (COMPLETED) 40 mg, Intravenous, ONCE, 1 dose, On Francine 12/26/15 at 1900, MAXIMUM ADMINISTRATION RATE = 40 mg/min 1810 (Given - Provider: Tsering Tompkins RN) gabapentin (NEURONTIN) capsule 100 mg 100 mg, Oral, NIGHTLY, First dose on Francine 12/26/15 at 2100, Until Discontinued 2120 (Given - Provider: Maureen Devries RN) 2043 (Given - Provider: Destini Marquez, ROLF) glipiZIDE (GLUCOTROL) tablet 10 mg (CANCELED) 10 mg, Oral, 2 TIMES DAILY WITH MEALS, First dose on Francine 12/26/15 at 1915, Until Discontinued 2013 (Given - Provider: Maureen Devries RN) heparin (porcine) injection 8,000 Units (COMPLETED) 8,000 Units, Intravenous, ONCE, 1 dose, On Francine 12/26/15 at 2000 2339 (Given - Provider: Maureen Devries RN) insulin aspart (NovoLOG) injection 1-10 Units 1-10 Units, Subcutaneous, 4 TIMES DAILY WITH MEALS, First dose on Wed12/27/15 at 0800, Until Discontinued, Medium dose algorithm: FSBS Additional [...] 3 hours. Waste Sort Code = BKC 0800 (Not Given - Provider: Sandra Engel RN - Reason: Order parameters not met)1155 (Given - Provider: Leida Miller RN - Comment: verified by ROLF Cain)1800 (Not Given - Provider: Sandra Engel RN - Reason: Order parameters not met)2100 (Not Given - Provider: Destini Marquez RN - Reason: Order parameters not met) 0800 (Not Given - Provider: Sandra Engel RN - Reason: Order parameters not met)1200 (Not Given - Provider: Sandra Engel RN - Reason: Order parameters not met)1800 (Not Given - Provider: Leida Miller RN - Reason: Patient/family declined) linagliptin (TRADJENTA) tablet 5 mg 5 mg, Oral, DAILY, First dose on Wed12/27/15 at 0900, Until Discontinued, Therapeutic interchange as the dipeptidly peptidase-4 (DPP-4) inhibitor of choice. 0939 (Given - Provider: Sandra Engel RN) 08 (Given - Provider: Sandra Engel RN) metoprolol (LOPRESSOR) tablet 25 mg (CANCELED) 25 mg, Oral, 2 TIMES DAILY, First dose on Wed12/26/15 at 1900, Until Discontinued 1817 (Given - Provider: Tsering Tompkins RN) 0939 (Given - Provider: Sandra Engel RN) metoprolol (LOPRESSOR) tablet 50 mg 50 mg, Oral, 2 TIMES DAILY, First dose (after last modification) on Wed12/27/15 at 2100, Until Discontinued 220 (Given - Provider: Destini Marquez RN) 08 (Given - Provider: Sandra Engel, ROLF) nitroGLYCERIN (NITROGLYN) 2 % ointment 1 Inch (COMPLETED) 1 Inch, Topical, ONCE, 1 dose, On Francine 12/26/15 at 1400, Wipe off old dose, apply to chest wall 1404 (Patch Applied - Provider: Joanna Smith, ROLF) nitroGLYCERIN (NITROGLYN) 2 % ointment 1 Inch 1 Inch, Topical, EVERY 6 HOURS SCHEDULED (4 times per day), First dose on Francine 12/26/15 at 1800, Until Discontinued, Wipe off old dose, apply to chest wall. 1800 (Not Given - Provider: Tsering Tompkins RN - Reason: Patient/family declined) 0000 (Not Given - Provider: Maureen Devries RN - Reason: Patient/family declined)0600 (Not Given - Provider: Maureen Devries RN - Reason: Patient/family declined)1200 (Not Given - Provider: Sandra Engel RN - Reason: Patient/family declined)1800 (Not Given - Provider: Sandra Engel RN - Reason: Patient/family declined) 0000 (Not Given - Provider: Destini Marquez RN - Reason: Patient/family declined)0600 (Not Given - Provider: Destini Marquez RN - Reason: Patient/family declined)1200 (Not Given - Provider: Sandra Engel RN - Reason: Patient/family declined)1800 (Not Given - Provider: Leida Miller RN - Reason: Patient/family declined) pantoprazole (PROTONIX) tablet 40 mg 40 mg, Oral, 2 TIMES DAILY, First dose on Francine 12/26/15 at 2100, Until Discontinued, Do not crush or chew 2120 (Given - Provider: Maureen Devries RN) 09 (Given - Provider: Sandra Engel, ROLF)2043 (Given - Provider: Destini Marquez, ROLF) 08 (Given - Provider: Sandra Engel, ROLF) risperiDONE (RisperDAL) tablet 2 mg 2 mg, Oral, NIGHTLY, First dose on Francine 12/26/15 at 2100, Until Discontinued 2119 (Given - Provider: Maureen Devries RN) 2043 (Given - Provider: Destini Marquez, RN) roPINIRole (REQUIP) tablet 1.5 mg 1.5 mg, Oral, NIGHTLY, First dose on Francine 12/26/15 at 2100, Until Discontinued 2119 (Given - Provider: Maureen Devries RN) 2043 (Given - Provider: Destini Marquez, RN) sodium chloride 0.9% syringe 10 mL 10 mL, Intravenous, EVERY 8 HOURS SCHEDULED (3 times per day), First dose on Wed12/27/15 at 1600, Until Discontinued, Flush with 10 mL saline for saline locked CENTRAL line/PICC/Dialysis pigtail lock maintenance. 1600 (Not Given - Provider: Sandra Engel RN - Reason: IV Infusing)2207 (Given - Provider: Destini Marquez, ROLF) 0600 (Not Given - Provider: Destini Marquez RN - Reason: Other - Comment: given when labs drawn, flushed all lumens)1400 (Not Given - Provider: Sandra Engel RN - Reason: IV Infusing) venlafaxine (EFFEXOR-XR) XR capsule 300 mg 300 mg, Oral, NIGHTLY, First dose on Wed12/26/15 at 2100, Until Discontinued 2120 (Given - Provider: Maureen Devries RN) 2043 (Given - Provider: Destini Marquez, ROLF) Continuous Medication Order 12/26/2015 12/27/2015 12/28/2015 0.9 % NaCl infusion (CANCELED) Intravenous, at 100 mL/hr, CONTINUOUS, Starting on Wed12/26/15 at 1400, Until Wed12/26/15 at 1636 1404 (New Bag - Provider: Joanna Smith, ROLF) 0.9 % NaCl infusion (CANCELED) Intravenous, at 100 mL/hr, CONTINUOUS, Starting on Wed12/27/15 at 1145, Until Wed12/28/15 at 0800 1440 (New Bag - Provider: Leida Miller, ROLF - Comment: moved infusion to start due to loss of IV access) 0048 (New Bag - Provider: Analy Krishnamurthy RN) 0.9 % NaCl infusion (CANCELED) Intravenous, at 150 mL/hr, CONTINUOUS, Starting on 12/28/15 at 0930, Until 12/28/15 at 1324, Start 2 hours prior to procedure at 150 mL/hr. If Sodium Bicarbonate drip to infuse, 0.9% Normal Saline to infuse at Keep Open Rate., Pre-op (Floor Meds) 0859 (Rate/Dose Change - Provider: Sandra Engel RN)1035 (New Bag - Provider: Sandra Engel RN)1340 (Stopped - Provider: Sandra Engel RN) heparin 25,000 units in 250 mL 0.45% NaCl (CANCELED) 1,800 Units/hr (18 mL/hr), Intravenous, CONTINUOUS, Starting on Francine 12/26/15 at 2000, Until 12/27/15 at 0249 1957 (New Bag - Provider: Maureen Devries RN) heparin 25,000 units in 250 mL 0.45% NaCl 950 Units/hr (9.5 mL/hr), Intravenous, CONTINUOUS, Starting on 12/27/15 at 0430, Until 12/28/15 at 1938 0319 (Stopped - Provider: Maureen Devries RN - Comment: see order start time)0321 (New Bag - Provider: Maureen Devries RN)1109 (Rate/Dose Change - Provider: Sandra Engel, ROLF)1438 (New Bag - Provider: Leida Miller RN)2354 (Rate/Dose Change - Provider: Destini Marquez RN) 0857 (Rate/Dose Change - Provider: Sandra Engel, ROLF)1138 (New Bag - Provider: Sandra Engel, ROLF) PRN Medication Order 12/26/2015 12/27/2015 12/28/2015 acetaminophen (OFIRMEV) infusion 1,000 mg 1,000 mg, Intravenous, EVERY 6 HOURS PRN, Starting on Francine 12/26/15 at 1620, Until 12/28/15 at 1938, Pain, For Mild to Moderate Pain if oral route not available, Administer over 15 Minutes, Maximum adult dose of acetaminophen is 4000 mg from all sources in 24 hours. acetaminophen (TYLENOL) suppository 650 mg(Linked Group 1) 650 mg, Rectal, EVERY 4 HOURS PRN, Starting on Francine 12/26/15 at 1620, Until 12/28/15 at 1938, Fever, Headaches, Maximum adult dose of acetaminophen is 4000 mg from all sources in 24 hours. acetaminophen (TYLENOL) tablet 650 mg(Linked Group 1) 650 mg, Oral, EVERY 4 HOURS PRN, Starting on Francine 12/26/15 at 1620, Until 12/28/15 at 1938, Fever, Headaches, Maximum adult dose of acetaminophen is 4000 mg from all sources in 24 hours. dextrose 50 % solution 25 mL 25 mL, Intravenous, PRN, Starting on Francine 12/26/15 at 2205, Until 12/28/15 at 1938, Low blood sugar, If FSBS <70 mg/dl and patient cannot take orally, Check FSBS every 15 minutes and repeat 25 mL of D50 IV push and notify physician if FSBS <70 mg/dl VESICANT glucagon (human recombinant) (GLUCAGEN) injection 1 mg 1 mg, Intramuscular, PRN, Starting on Francine 12/26/15 at 2205, Until 12/28/15 at 1938, Low blood sugar, If FSBS less than 70 mg/dl, patient cannot take orally and without IV access, If patient is without IV access, give Glucagon 1 mg Intramuscularly, insert IV and call physician. HYDROcodone-acetaminophen (NORCO) 5-325 mg per tablet 1-2 Tab 1-2 Tablet, Oral, EVERY 6 HOURS PRN, Starting on Francine 12/26/15 at 1620, Until 12/28/15 at 1938, Pain, Begin with lowest dose unless otherwise directed. Reassess pain in one hour. If pain unrelieved, remainder of dose may be given to patient. Maximum adult dose of acetaminophen is 4000 mg from all sources in 24 hours. 1805 (Given - Provider: Tsering Tompkins RN) 0014 (Given - Provider: Maureen Devries RN)0537 (Given - Provider: Maureen Devries RN)2052 (Given - Provider: Destini Marquez, ROLF) 0353 (Given During Downtime - Provider: Destini Marquez, RN) ondansetron (ZOFRAN) 4 mg/2 mL injection 4 mg(Linked Group 2) 4 mg, Intravenous, EVERY 6 HOURS PRN, Starting on Francine 12/26/15 at 1620, Until 12/28/15 at 1938, Nausea ondansetron (ZOFRAN) tablet 4 mg(Linked Group 2) 4 mg, Oral, EVERY 6 HOURS PRN, Starting on Francine 12/26/15 at 1620, Until 12/28/15 at 1938, Nausea sodium chloride 0.9% IV line flush 20-50 mL 20-50 mL, Intravenous, at 150-600 mL/hr, PRN, Starting on Wed12/27/15 at 1418, Until 12/28/15 at 1938, Line Care, Flush with a minimum of 20 mL after IVPB to insure complete administration of the dose. May use the saline infusion to back flush IVPB tubing as needed. sodium chloride 0.9% syringe Intravenous, PRN, Starting on Wed12/27/15 at 1418, Until 12/28/15 at 1938, Line Care, Flush with 5-10 mL saline pre/post IVP, 10 mL prior to IVPB or blood product administration, and 20 mL post blood draws for CENTRAL lines. Linked Groups Order Group 1: acetaminophen (TYLENOL) tablet 650 mgJump to med 650 mg, Oral, EVERY 4 HOURS PRN, Starting on Francine 12/26/15 at 1620, Until 12/28/15 at 1938, Fever, Headaches, Maximum adult dose of acetaminophen is 4000 mg from all sources in 24 hours. Or acetaminophen (TYLENOL) suppository 650 mgJump to med 650 mg, Rectal, EVERY 4 HOURS PRN, Starting on Francine 12/26/15 at 1620, Until 12/28/15 at 1938, Fever, Headaches, Maximum adult dose of acetaminophen is 4000 mg from all sources in 24 hours. Group 2: ondansetron (ZOFRAN) tablet 4 mgJump to med 4 mg, Oral, EVERY 6 HOURS PRN, Starting on Francine 12/26/15 at 1620, Until 12/28/15 at 1938, Nausea Or ondansetron (ZOFRAN) 4 mg/2 mL injection 4 mgJump to med 4 mg, Intravenous, EVERY 6 HOURS PRN, Starting on Francine 12/26/15 at 1620, Until 12/28/15 at 1938, Nausea documented in this encounter Orders Medications Ordered That Gaurav ht Not Have Been Administered Count Last Ordered Date First Ordered Date aspirin tablet 325 mg 1 12/28/2015 diphenhydrAMINE (BENADRYL) injection 25 mg 1 12/28/2015 famotidine (PEPCID) 20 mg/2 mL injection 20 mg 1 12/28/2015 methylPREDNISolone sodium roper ccinate (Solu-MEDROL) 125 mg/2 mL injection 125 mg 1 12/28/2015 sodium chloride 0.9% IV line flush 20-50 mL 1 12/27/2015 sodium chloride 0.9% syringe 1 12/27/2015 0.9 % NaCl infusion 1 12/26/2015 acetaminophen (OFIRMEV) infusion 1,000 mg 1 12/26/2015 acetaminophen (TYLENOL) suppository 650 mg 1 12/26/2015 acetaminophen (TYLENOL) tablet 650 mg 1 dextrose 50 % solution 25 mL 1 12/26/2015 glucagon (human recombinant) (GLUCAGEN) injection 1 mg 1 12/26/2015 lisinopril (PRINIVIL;ZESTril) tablet 5 mg 1 12/26/2015 morphine injection 2 mg 1 12/26/2015 morphine injection 4 mg 1 12/26/2015 nitroGLYCERIN (NITROGLYN) 2 % ointment 1 Inch 1 12/26/2015 ondansetron (ZOFRAN) 4 mg/2 mL injection 4 mg 1 12/26/2015 ondansetron (ZOFRAN) tablet 4 mg 1 12/26/19 16 Lab Orders Without Results Count Last Ordered D ate First Ordered Date BASIC METABOLIC PANEL 1 12/28/2015 Nursing Count Last Ordered Date First Orde red Date NOTIFY PHYSICIAN (SPECIFY) 2 12/28/2015 NURSING COMMUNICATION 1 12/28/2015 VERIFY INFORMED CONSENT CARD CATH 1 016 ADMISSION 2 12/26/2015 CARDIAC MONITORING 1 12/26/2015 ED ENTER ADMISSION ORDER 1 12/26/2015 Consult Count Last Ordered Date First Orde red Date IP CONSULT TO ELECTROPHYSIOLOGY 1 6 Respiratory Care Count Last Ordered Date First Ordered Date OXYGEN THERAPY 1 12/26/2015 IV Count Last Ordered Date First Orde red Date SALINE LOCK IV 1 12/26/2015 Transfer Count Last Ordered Date First Orde red Date BED REQUEST 1 12/26/2015 documented in this encounter Care Teams Finish Photographer Relationship Specialty Start Date End Date Alessandra Trevino August, [address] [facility] [address] [place] [address] PCP - General Nurse Practitioner-Family 08/29/14 09/20/16 documented as of this encounter
--- OUTSIDE RECORDS SUMMARY | 2024-02-16 15:03 | XMS_ITS | Encounter Summary ---
Author Organization [place] [address] Care Team Providers Care Education Rn Name Role Phone Alessandra Trevino August Primary Care Provider + Reason for Visit * Reason Comments Chest Pain started with chest p ain 11:30 and twelve today while eating lunch, pain midsternal, thought it was heartburn, +SOB, +dizziness, felt nauseated but no vomiting, no fever, denies cough, * Auth/Cert/Inpt Specialty Diagnoses / Procedures Referred By Contac t Referred To Contact Diagnoses Chest pain, unspecified chest pain type Anemia, unspecified anemia type Referral ID Status Reason Start Date Expiration Date Visits Re quested Visits Authorized [id number] 1 1 Encounter Details Date Type Department Care Team (Latest Contact Info) Description 04/01/2015 1:13 PM EST - 04/04/2015 12:39 PM [facility] Hospital Encounter [facility] [address] [address] [place] [place] [address] Mike Hart MD [address] [place] [address] Sherif Bartholomew MD [facility] [place] [address] Campbell Huston MD [address] [place] [address] Chest pain, unspecified chest pain type (Primary Dx); Anemia, unspecified anemia type Discharge Disposition: Home or Self Care [...] Sign Reading Time Taken Comments Blood Pressure 140/76 04/04/2015 11:35 AM EST Pulse 89 04/04/2015 8:16 AM EST Temperature 36.4 ??C (97.6 ??F) 04/04/2015 8:16 AM ES T Respiratory Rate 16 04/04/2015 8:16 AM EST Oxygen Saturation 100% 04/04/2015 11:35 AM EST Inhaled Oxygen Concentration - - Weight 86.9 kg (191 lb 8 oz) 04/04/2015 5:35 AM EST Blue Height 174 cm (5' 8.5 ) 04/01/2015 4:27 PM EST Body Mass Index 28.69 04/01/2015 4:27 PM EST documented in this encounter Discharge Summaries * Campbell Huston MD - 04/04/2015 10:[address] [facility] Discharge Summary Patient Name: Faby Palm : 1950 Admit Date: 04/01/2015 Discharge Date: 04/04/2015 Admitting Physician: Sherif Bartholomew MD Discharge Physician: Campbell Huston MD Reason for Hospitalization: Active Hospital Problems ELIU (iron deficiency anemia) Chest pain *Acute blood loss anemia Essential hypertension Hospital Course/Significant Findings: patient was admitted for evaluation of atypical and burning chest pain. She had evidence of ELIU. She was seen by GI, EGD showed esophageal ring, ulcer and food in stomach. She received IV venofer. She declines colonoscopy Stable for discharge with po ferrous sulfate, PPI and carafate and OP f/u PCP and GI Advised to avoid NSAID Procedures Performed: EGD Consults: Treatment Team: Consulting Physician: Isabel Dumont MD Discharge Exam: NAD, comfortable Clear lungs, no wheezing RRR, no murmur Soft, NT +BS No LE edema Discharge Diagnoses: Principal Problem: Acute blood loss anemia d/t likely GI blood loss Essential hypertension Chest pain ELIU (iron deficiency anemia) Condition at Discharge: stable Disposition: Home Discharge Medications:: Medication List START taking these medications ferrous sulfate 325 mg (65 mg iron) Tab Dose: 325 mg Qty: 60 Tab Refills: 5 325 mg, Oral, 2 TIMES DAILY WITH MEALS pantoprazole 40 mg Tbec Dose: 40 mg Qty: 60 Tab Refills: 1 Commonly known as: PROTONIX 40 mg, Oral, 2 TIMES DAILY sucralfate 100 mg/mL Susp Dose: 1 g Qty: 1200 mL Refills: 0 Commonly known as: CARAFATE 1 g, Oral, 4 TIMES DAILY BEFORE MEAL CONTINUE taking these medications ARIPiprazole 10 mg Tab Dose: 20 mg Refills: 0 Commonly known as: ABILIFY HYDROcodone-acetaminophen 5-325 mg Tab Dose: 1 Tab Qty: 12 Tab Refills: 0 Commonly known as: NORCO 1 Tab, Oral, EVERY 6 HOURS PRN hydrOXYzine 50 mg Tab Dose: 50 mg Refills: 0 Commonly known as: ATARAX lisinopril 10 mg Tab Refills: 0 Commonly known as: PRINIVIL;ZESTril METFORMIN ORAL Refills: 0 risperiDONE 1 mg Tab Dose: 1 mg Refills: 0 Commonly known as: RisperDAL roPINIRole 0.5 mg Tab Dose: 0.5 mg Refills: 0 Commonly known as: REQUIP venlafaxine 150 mg Cp24 Dose: 150 mg Refills: 0 Commonly known as: EFFEXOR-XR Where to Get Your Medications These are the prescriptions that you need to mushroom picker. You may get the following medications from any pharmacy - ferrous sulfate 325 mg (65 mg iron) Tab - pantoprazole 40 mg Tbec - sucralfate 100 mg/mL Susp Follow Up: .Net Architect Schedule an appointment as soon as possible for a visit Alessandra Trevino August, [facility] [address] [facility] [address] In 3 days Isabel Dumont MD [address] [facility] [address] Call Call for a follow up appointment Alessandra Trevino August, DIRECTOR INSTITUTION [address] [facility] [address] In 3 days Spent > 30 mns on discharge planing Signed: Campbell Huston MD 04/04/2015 10:50 AM documented in this encounter Discharge Instructions * Discharge Instructions* Claire Loaiza RN - 04/04/2015 10:[address] [facility] Discharge Instructions - Following Endoscopy 1. A responsible adult, 18 years or older must be in attendance until the next A.M. 2. Rest quietly today. 3. May resume usual diet. 4. Do not drive or operate any machinery until the next A.M., or as instructed. 5. No alcoholic beverages for 24 hours. 6. Do not make any legal or important decisions for the next 24 hours. 7. Call the physician???s office for a follow-up visit or 8. Patient discharged to the care of ADDITIONAL INSTRUCTIONS: Call at if the following occurs: EGD: Abdominal pains, cramps, swelling, chest pains, difficulty in swallowing, chills, coughing blood, severe sore throat, or body temp. over 101 degrees. Other Instructions: Copy of Discharge Medication Instruction Sheet Given * Attachments The following attachments cannot be sent through Care Everywhere. * PANTOPRAZOLE TABLETS (SWEDISH) * SUCRALFATE ORAL SUSPENSION (SWEDISH) * IRON TABLETS, CAPSULES, EXTENDED-RELEASE TABLETS (SWEDISH) documented in this encounter Medications at Time of Discharge ferrous sulfate 325 mg (65 mg iron) Oral Tablet Take 1 Tab by mouth 2 times daily (with meals). 60 Tab 5 04/04/2015 ARIPiprazole (ABILIFY) 10 mg Oral Tablet Take 30 mg by mouth 2 times daily. 02/23/2017 hydrOXYzine (ATARAX) 50 mg Oral Tablet Take 25 mg by mouth 2 times daily. Reported on 06/22/2016 06/24/2016 pantoprazole (PROTONIX) 40 mg Oral Tablet, Delayed Release (E.C.) Take 1 Tab by mouth 2 times daily. 60 Tab 1 04/04/2015 06/24/2016 risperiDONE (RISPERDAL) 1 mg Oral Tablet Take 2 mg by mouth nightly. 02/23/2017 sucralfate (CARAFATE) 100 mg/mL Oral Suspension Take 10 mL by mouth 4 times a day with meals for 30 days. 1200 mL 0 04/04/2015 05/04/2015 venlafaxine (EFFEXOR-XR) 150 mg Oral Capsule, Sust. Release 24 hr Take 300 mg by mouth nightly. 10/15/2016 documented as of this encounter Ordered Prescriptions Prescription Sig Dispense Quantity Refills Last Filled Start Date End Date ferrous sulfate 325 mg (65 mg iron) Oral Tablet Take 1 Tab by mouth 2 times daily (with meals). 60 Tab 5 04/04/2015 sucralfate (CARAFATE) 100 mg/mL Oral Suspension Take 10 mL by mouth 4 times a day with meals for 30 days. 1200 mL 0 04/04/2015 05/04/2015 pantoprazole (PROTONIX) 40 mg Oral Tablet, Delayed Release (E.C.) Take 1 Tab by mouth 2 times daily. 60 Tab 1 04/04/2015 06/24/2016 documented in this encounter Discharge Disposition Disposition Code Departure Means Destination Home or Self Care Other documented in this encounter Progress Notes * Be Brown MD - 04/10/2015 4:37 PM ESTQuick Note: Please call patient with results consistent with pill esophagitis. The main pills are aspirin, nsaids, doxycycline, and others. Continue a PPI and make sure they take their medications with a full glass of water. * Claire Loaiza RN - 04/04/2015 12:19 PM EST Report called to [facility] * Therese Roman RN - 04/04/2015 11:47 AM EST 04/04/15 1139 Discharge Planning Evaluation Actual Discharge Plan 04/04/15 CC Final Note: Noted patient ready for discharge. [facility] to provide transportation for patient at 1:00 to take her back to the [facility]. CC available if needed. Anticipated post-acute care needs Personal Intermediate * Campbell Huston MD - 04/04/2015 10:44 AM EST Images from the original note were not included. Admit Date: 04/01/2015 LOS: 1 day HPI: Faby Palm is a(n)64 y.o. female being followed for anemia/ELIU Subjective: Seen today, doing well. No chest pain, sob Objective: I reviewed all labs, imaging studies and current inpatient medications as of this date Scheduled Meds: ??? ARIPiprazole 20 mg Oral Daily ??? ferrous sulfate 325 mg Oral BID WM ??? insulin aspart 1-5 Units Subcutaneous QID WM ??? lisinopril 10 mg Oral Daily ??? metFORMIN 1,000 mg Oral BID WM ??? miconazole Topical BID ??? nitroGLYCERIN 1 Inch Topical 4 times per day ??? pantoprazole 40 mg Oral Daily ??? risperiDONE 1 mg Oral Nightly ??? roPINIRole 0.5 mg Oral Nightly ??? sodium chloride 0.9% Intravenous 3 times per day ??? sucralfate 1 g Oral QID AC ??? venlafaxine 150 mg Oral Nightly Continuous Infusions: BP 128/55 mmHg Pulse 89 Temp(Src) 97.6 ??F (36.4 ??C) (Oral) Resp 16 Ht 5' 8.5 (1.74 m) Wt 191 lb 8 oz (86.864 kg) BMI 28.69 kg/m2 SpO2 100% ? No Patient not in acute distress Clear lungs RRR Soft +BS EGD 04/03/15 Ring in the gastroesophageal junction. Food in the stomach body. Ulcers in the middle third of the esophagus. (Biopsy, Brushing). Normal mucosa in the whole examined duodenum. (Biopsy). Assessment/Plan: Acute blood loss anemia/ELIU Hb 13-> 8.0. EGD as above. Post venofer Esophageal ulcer PPI BID Ferrous sulfate Declines colonoscopy. Consider cologuard tesing Atypical chest pain. No ACS. Echo preserved EF DM. Stable HTN. Stable Ok for discharge with OP f/u PCP and JAQUELINE Huston MD * Charity Cifuentes RN - 04/04/2015 10:40 AM EST Images from the original note were not included. WOUND CARE: Re-consulted to evaluate areas of concern to bilateral groins. Upon assessment noted ptwith scattered red, moist sores that are painful per pt. Etiology unknown at this time. Pt states that her PMD hs been treating these areas for years and that they go away and come back. Recommend toapply anti- fungal powder every 12 hours and PRN per the moisture related dermatitis protocol to help wick moisture away from the skin. Will also recommend pt F/U with a teacher adventure education upon D/C for a biopsy. Pt aware and is agreeable. Discussed plan of care with pt and primary nurse. Will continue tofollow offering support. Thanks * Camryn Harris RN - 04/03/2015 7:29 PM EST VSS, no complaints of pain this shift. EGD performed today. Pt is resting comfortably at this time.Will continue to monitor. * Candace Todd RD,LD - 04/03/2015 1:51 PM EST Nutrition Consult for vascular ulcer on foot. Reviewed chart and po Pt. Taking diet well here and at home. Blood sugar reported as WNL -92-68 No recent A1c level Noted EGD today - ulcers reported Please advance diet to 75-90 gm carb /[address] to sign off. * Campbell Huston MD - 04/03/2015 11:27 AM EST Images from the original note were not included. Admit Date: 04/01/2015 HPI: Faby Palm is a(n)64 y.o. female being followed for Chest pain, unspecified chest pain type [R07.9] Anemia, unspecified anemia type [D64.9]. Subjective: Seen today, doing well. No chest pain, sob Objective: I reviewed all labs, imaging studies and current inpatient medications as of this date Scheduled Meds: ??? ARIPiprazole 20 mg Oral Daily ??? insulin aspart 1-5 Units Subcutaneous QID WM ??? iron sucrose (VENOFER) IVPB (Standard) 200 mg Intravenous Daily ??? lisinopril 10 mg Oral Daily ??? metFORMIN 1,000 mg Oral BID WM ??? nitroGLYCERIN 1 Inch Topical 4 times per day ??? pantoprazole 40 mg Oral Daily ??? risperiDONE 1 mg Oral Nightly ??? roPINIRole 0.5 mg Oral Nightly ??? venlafaxine 150 mg Oral Nightly Continuous Infusions: BP 155/85 mmHg Pulse 81 Temp(Src) 97.9 ??F (36.6 ??C) (Oral) Resp 18 Ht 5' 8.5 (1.74 m) Wt 205 lb 8 oz (93.214 kg) BMI 30.79 kg/m2 SpO2 100% ? No Patient not in acute distress Lungs CTA. Heart regular S1, S2 are normal. No murmur. Abd soft, NT, ND, bowel sounds are present. Neuro AAO X3. Radiology: Ec Echocardiogram Complete W Doppler And Color Flow Mapping 04/03/2015 CONCLUSIONS Moderate concentric left ventricular hypertrophy. Abnormal relaxation fillingpattern of the left ventricle for age (stage 1 diastolic dysfunction). Left ventricular function isnormal. Moderate left atrial dilatation. Mild mitral regurgitation. Trace aortic regurgitation. Mild tricuspid regurgitation. Right ventricular systolic pressure estimated at 32 mmHg. BRANDON BLAKE MD Scanned Rhythm Strips 04/03/2015 Ordered by an unspecified provider. Assessment/Plan: Acute blood loss anemia/ELIU Hb 13-> 8.0.Possible PUD, gastritis, esophagitis, occult GI bleed. Getting venofer Plan for EGD today PPI BID GI following Atypical chest pain. No ACS. Echo preserved EF DM. Stable HTN. Stable States she will think about the colonoscopy. Campbell Huston MD * Therese Roman RN - 04/03/2015 11:14 AM EST 04/03/15 1114 Discharge Planning Evaluation Actual Discharge Plan 04/03/15 CC Update: Noted plan for EGD today. Discharge plan remains for patient to return to the [facility] via [facility]. Will continue to follow. Anticipated post-acute care needs Personal Intermediate * Teodoro Whitt RN - 04/02/2015 5:57 PM EST PT's blood glucose 78 mg/dl. PT is eating meal at this time. * Teodoro Whitt RN - 04/02/2015 5:20 PM EST PT's blood glucose 63 mg/dl. Provided snack to increase blood sugar level. * Aníbal Ureña LPN - 04/02/2015 4:46 PM EST Pt will have EGD tomorrow . Pt very excited about getting to eat today and in a.m. No complaints offered * Therese Roman RN - 04/02/2015 3:04 PM EST 04/02/15 1455 Assessment Complete ED Screening Completed Initial screening complete, no post-acute needs identified at this time Actual Discharge Plan 04/02/15 CC Initial Assessment: Met with patient at bedside. She states she lives at the [facility] and plans on returning there at discharge. She states she uses a walkerthere. No home health. She uses [facility] for transportation. PCP is Dr. Trevino. [facility] takes care of her medications. Will continue to follow for discharge planning. Completed by CC/SW Yes Care Coordination Assessment Observation Information Provided to Patient/Family Yes Assessed In person interview with patient Mental Status Alert and oriented Does patient need professor of geography? No Decision Maker Him/Herself Activities of Daily Living Needs Assistance Where did the patient come from? Senior Living Support Systems Friends/Neighbors Quality of Support System Adequate Type of Home Care Services None Recent decline in your ability to care for yourself physically? No DME Currently Used Walker Anticipated/Recommended DME needs? [facility] Financial Concerns No Obtain prescription meds at discharge? Medicare D/Medicaid Obtain follow up care after discharge? PCP office Transportation at discharge [facility] Discussed discharge plan with patient/family Yes Agency/Facility Options Offered, list provided N/A Concerns about discharge plan none * Campbell Huston MD - 04/02/2015 1:00 PM EST Images from the original note were not included. Admit Date: 04/01/2015 HPI: Faby Palm is a(n)64 y.o. female being followed for Chest pain, unspecified chest pain type [R07.9] Anemia, unspecified anemia type [D64.9]. Subjective: Seen today, doing ok. No fever, chills, chest pain, sob Objective: I reviewed all labs, imaging studies and current inpatient medications as of this date Scheduled Meds: ??? ARIPiprazole 20 mg Oral Daily ??? insulin aspart 1-5 Units Subcutaneous QID WM ??? lisinopril 10 mg Oral Daily ??? metFORMIN 1,000 mg Oral BID WM ??? nitroGLYCERIN 1 Inch Topical 4 times per day ??? pantoprazole 40 mg Intravenous BID ??? risperiDONE 1 mg Oral Nightly ??? roPINIRole 0.5 mg Oral Nightly ??? venlafaxine 150 mg Oral Nightly Continuous Infusions: BP 148/75 mmHg Pulse 88 Temp(Src) 97.5 ??F (36.4 ??C) (Oral) Resp 18 Ht 5' 8.5 (1.74 m) Wt 203 lb 8 oz (92.307 kg) BMI 30.49 kg/m2 SpO2 95% ? No Patient not in acute distress Clear lungs RRR Soft +BS Assessment/Plan: Acute blood loss anemia. Hb 13-> 8.2.Possible PUD, gastritis, esophagitis, occult GI bleed. Tells me she would not let any one do a colonoscopy on her. Clear liquid, NPO pas [place] Iron studies venofer 200 mg QD IV PPI BID GI consulted Atypical chest pain. No ACS. Echo result pending DM. Stable HTN. Stable D/w patient Campbell Huston MD * Aníbal Ureña LPN - 04/02/2015 11:16 AM EST Pt. Was instructed not to eat or drink in case EGD was ordered . Door sign flagged for npo and order obtained from [facility] took in clear liquid tray and pt states she finished eating at10:45, Reinforced instructions to remain NPO. * Sridevi Cavanaugh RN - 04/02/2015 11:05 AM EST WOUNDCARE: Consulted to evaluate area of concern to the Lt great toe. Please see LDA for complete assessment and documentation. Patient with suspected Diabetic Foot Ulcer to the Lt lateral great toe.Wound is full thickness, dry, red, with painful, purple/red ananya-wound. She is not routinely followed by podiatry for her diabetic feet. Noted history of neuropathy. Request podiatry consultation forfurther evaluation. Discussed importance of daily inspection and care of diabetic feet. Explained high risk for complication including infection. Recommend use of Xeroform gauze and offloading until seen by podiatry. Encourage other pressure preventative interventions including frequent turn/repositioning schedule. CN consulted for nutritional support with wound healing. Orders updated on chart. Plan of care discussed with patient and primary nursing. Will continue to follow closely offering support, awaiting further input/instruction from director of estate. Thank you. * Liliana Marley 04/01/2015 8:22 PM EST Coverage for Dr. Isabel Dumont is being handled by Dr. Néstor Hdzusionwu Text message for GI consult sent 04/01/15 @ 2008 by Jamari Marley This will be handled in the morning documented in this encounter H&P Notes * Sherif Bartholomew MD - 04/01/2015 6:22 PM EST [facility] History and Physical Name: Faby Palm ADDRESS: No Address, No Phone Number Available [facility] [id number] : 1950 AGE: 64 y.o. ADMITTING PHYSICIAN: Sherif Bartholomew MD DATE OF ADMISSION: 04/01/2015 CHIEF COMPLAINT: Epigastric pain HISTORY OF PRESENT ILLNESS: This is a 64 y.o. year-old patient who came to the emergency room complaining of epigastric pain. The symptoms started 5 hours prior to admission. The pain: -is localized in the epigastric area -goes up to an intensity of 6-7 over 10 in intensity at its worse -Started during she had lunch -It is a sharp pain -some radiation to her midback and across her chest from side to side -associated with nausea but no vomiting She takes ibuprofen on a daily basis and up to 3 times a day for knee pain. Denies any melena or bright red blood per rectum. She was found to have dropped her H/H by 5 point over the past 5 months. PAST MEDICAL HISTORY: Past Medical History Diagnosis Date ??? COPD (chronic obstructive pulmonary disease) (HCC) ??? DDD (degenerative disc disease) ??? CHF (congestive heart failure) (HCC) ??? Diabetes mellitus (HCC) ??? Hypertension ??? Yeast infection recurrent ??? Suicide attempt (HCC) ??? Stroke (HCC) 2010 left side affected ??? RLS (restless legs syndrome) PAST SURGICAL HISTORY: Past Surgical History Procedure Laterality Date ??? Lung surgery ??? Tonsillectomy ??? Breast surgery ??? Orthopedic surgery ??? Joint replacement ??? Ankle surgery FAMILY HISTORY: History reviewed. No pertinent family history. SOCIAL HISTORY: History Social History ??? Marital Status: Spouse Name: N/A Number of Children: N/A ??? Years of Education: N/A Social History Main Topics ??? Smoking status: Never Smoker ??? Smokeless tobacco: None ??? Alcohol Use: No ??? Drug Use: No ??? Sexual Activity: None Other Topics Concern ??? None Social History Narrative ALLERGIES: Allergies Allergen Reactions ??? Compazine [Prochlorperazine Edisylate] ??? [facility] ??? Talwin [Pentazocine Lactate] REVIEW OF SYSTEMS: All systems have been reviewed and review of systems is only positive for: - no fever -no melena -no bright red blood per rectum -epigastric pain++ - heartburn+++ All other systems have been reviewed and are negative for any acute issues. PHYSICAL EXAMINATION: BP 146/74 mmHg Pulse 72 Temp(Src) 98.2 ??F (36.8 ??C) Resp 16 Ht 5' 8.5 (1.74 m) Wt 204 lb 12.9 oz (92.9 kg) BMI 30.68 kg/m2 SpO2 98% ? No ?? Constitutional: Patient is not in any apparent distress ?? HEENT: Eyes; pupils are round, equal and reactive to light and accommodation. ?? ENT and MOUTH: moist mucous membranes. No tonsillar exudates. ?? RESPIRATORY: Lungs are clear bilaterally to auscultation. No wheezing, no rales. ?? Cardiovascular: Regular rate and rhythm, no murmur. ?? GASTROINTESTINAL: Abdomen is soft, non-tender, non-distended. No organomegaly palpated. ?? GENITOURINARY: No CVA tenderness. No suprapubic tenderness. ?? LYMPHATIC/HEMATOLOGY: No lymphadenopathy palpated. ?? SKIN: No active skin lesions, no dermatitis seen. ?? NEUROLOGICAL: No focal neurological deficit. ?? PSYCHIATRIST: The patient is alert, awake and oriented to time, place, person and situation. ?? MUSCULOSKELETAL: No cyanosis, no edema, no gross deformities .NEURO: some difficulty with the left leg MEDICAL DECISION MAKING I personally reviewed the patient's medical information and medical history. I have personally reviewed the past medical, family, and social history sections including the medications and allergies listed in the above sections of the medical record. Labs: I personally reviewed this patient???s laboratories results: CBC: Lab Results Component Value Date WBC 8.5 04/01/2015 RBC 3.51* 04/01/2015 HGB 8.5* 04/01/2015 HCT 27.7* 04/01/2015 MCV 78.7* 04/01/2015 MCHC 30.6* 04/01/2015 RDW 17.1* 04/01/2015 MPV 8.9 04/01/2015 BMP: Lab Results Component Value Date NA 138 04/01/2015 K 4.4 04/01/2015 CL 102 04/01/2015 CO2 23 04/01/2015 BUN 20 04/01/2015 LABALBU 3.6 10/18/2014 CREATININE 1.08 04/01/2015 CALCIUM 9.1 04/01/2015 GFRAFRAM >60 04/01/2015 GFRNONAFRAM 51 04/01/2015 GLU 158* 04/01/2015 U/A:No results found for: SPECGRAV, UAPROTEIN, BLOODU, NITRITE, LEUKOCYTESUR, WBCUA, RBCUA Cardiac markers: No results found for: CKMB, MYOGLOBIN Radiology: I personally reviewed this patient???s radiological images: The chest X-ray reviewed by myself does not show any Infiltrates. There is no pneumothorax, no pleural effusion. I personally reviewed the EKG which shows normal sinus rhythm. There is no ST elevation and no signs of any acute myocardial ischemia. Xr Chest Ap Portable 04/01/2015 AP PORTABLE CHEST, 04/01/2015 at 1358 HISTORY: Chest pain. FINDINGS: Comparison 10/18/2014.Heart size is mildly enlarged but stable. Lungs are clear. Right rib deformity noted from prior fracture. 04/01/2015 IMPRESSION: No acute disease. Ek Ekg 12 Lead 04/01/2015 NOTICE: Preliminary tracing available for review; Final Interpretation by physician to follow. 04/01/[address] [facility] [facility] Interpretive Statements 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 MYOCARDIAL INFARCTION, PROBABLY OLD No change since previous ECG Electronically Signed On 04-01-2015 16:40:24 Ludy Marin MD Results for orders placed during the hospital encounter of 04/01/15 EK EKG 12 LEAD Impression Stationary ECG Study [facility] Interpretive Statements 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 MYOCARDIAL INFARCTION, PROBABLY OLD No change since previous ECG Electronically Signed On 04-01-2015 16:40:24 EST by Abundio Marin MD ASSESSMENT/PLAN: Principal Problem: Acute blood loss anemia Active Problems: Essential hypertension Chest pain Gastrointestinal hemorrhage associated with gastroduodenitis Hemiparesis affecting left side as late effect of stroke (HCC) 1._ Acute blood loss anemia Secondary to upper GI bleed? Repeat H/H every 12 hours Monitor for hematemesis and/or blood in stools or any active blood loss from any source Will transfuse if H/H keeps dropping or if patient develops any symptoms related to the acute bloodloss. No anticoagulation DVT prophilaxys only with jeremy hose or pneumatic compression devices 2._Possible upper GI bleed Gastrointestinal hemorrhage associated with gastroduodenitis/ peptic ulcer dz? Overuse of NSAIDs Never had a colonoscopy GI consult for possible EGD 3._ chronic knee pain bilateral norco PRN 4._ Chest pain From GERD/ Gastritis? Also could be symptoms from anemia Serial cardiac enzymes Continuous cardiac monitoring per protocole Echocardiogram 5._ Essential hypertension BP monitoring 6._DM type uncontrolled complicated with neuropathy Continue her Metformin Insulin if need via correction scale DVT ppx: only SCD 's or JEREMY hose CODE STATUS: full code Sherif Bartholomew MD 04/01/2015 6:22 PM documented in this encounter Consult Notes * Be Brown MD - 04/02/2015 2:50 PM ESTAssociated Order(s): IP CONSULT TO GI Images from the original note were not included. GI Consultation: Faby Palm is a 64 y.o. female asked to see us in consultation by Alessandra Trevino APRN & Campbell Huston MD for evaluation of chest pain and microcytic anemia. Pt with DM, HTN, CAD, CVA, depression and remote hx PUD admitted through ER with acute onset of chest pain radiating to her back while eating yesterday. Troponins negative but noted to have new onsetanemia with hemoccult negative stool. She describes several week hx of epigastric pain, different than the chest pain yesterday, improves with eating or antacids. Denies any vomiting, diarrhea, constipation, melena, hematochezia, vaginal bleeding or epistaxis. Remote hx PUD in [place] >10 years ago; no prior colon. Takes ASA daily Prescriptions prior to admission Medication Sig Dispense Refill Last Dose ??? ARIPiprazole (ABILIFY) 10 mg Oral Tablet Take 20 mg by mouth daily. Taking at Unknown time ??? HYDROcodone-acetaminophen (NORCO) 5-325 mg Oral Tablet Take 1 Tab by mouth every 6 hours as needed for Pain. 12 Tab 0 Not Taking at Unknown time ??? hydrOXYzine (ATARAX) 50 mg Oral Tablet Take 50 mg by mouth every 6 hours as needed for Itching.Taking at [place] ??? lisinopril (PRINIVIL;ZESTRIL) 10 mg Oral Tablet Take by mouth daily. Taking at Unknown time ??? METFORMIN HCL (METFORMIN ORAL) Take by mouth. Taking at Unknown time ??? risperiDONE (RISPERDAL) 1 mg Oral Tablet Take 1 mg by mouth nightly. Taking at Unknown time ??? roPINIRole (REQUIP) 0.5 mg Oral Tablet Take 0.5 mg by mouth nightly. Taking at Unknown time ??? venlafaxine (EFFEXOR-XR) 150 mg Oral Capsule, Sust. Release 24 hr Take 150 mg by mouth nightly.Taking at Unknown time Medication: ??? ARIPiprazole 20 mg Oral Daily ??? insulin aspart 1-5 Units Subcutaneous QID WM ??? lisinopril 10 mg Oral Daily ??? metFORMIN 1,000 mg Oral BID WM ??? nitroGLYCERIN 1 Inch Topical 4 times per day ??? pantoprazole 40 mg Intravenous BID ??? risperiDONE 1 mg Oral Nightly ??? roPINIRole 0.5 mg Oral Nightly ??? venlafaxine 150 mg Oral Nightly Allergies: Allergies Allergen Reactions ??? Compazine [Prochlorperazine Edisylate] ??? [facility] ??? Talwin [Pentazocine Lactate] Immunizations: There is no immunization history for the selected administration types on file for this patient. Family history, past medical history, and social history are reviewed as below. Past Medical History: PUD Past Medical History Diagnosis Date ??? COPD (chronic obstructive pulmonary disease) (HCC) ??? DDD (degenerative disc disease) ??? CHF (congestive heart failure) (HCC) ??? Diabetes mellitus (HCC) ??? Hypertension ??? Yeast infection recurrent ??? Suicide attempt (HCC) ??? Stroke (HCC) 2010 left side affected ??? RLS (restless legs syndrome) Past Surgical History: Partial lobectomy (benign); breast reduction Past Surgical History Procedure Laterality Date ??? Lung surgery ??? Tonsillectomy ??? Breast surgery ??? Orthopedic surgery ??? Joint replacement ??? Ankle surgery Family History: Mother -larynx cancer History reviewed. No pertinent family history. Social History: History Substance Use Topics ??? Smoking status: Never Smoker ??? Smokeless tobacco: Not on file ??? Alcohol Use: No ROS Constitutional: Denies fever,sweats, chills or weight loss Eyes: Denies change in visual acuity HENT: Denies hearing loss or dizziness Respiratory: Denies cough or shortness of breath Cardiovascular: Denies edema : Denies dysuria, hematuria, urgency or frequency Musculoskeletal: Denies back pain or joint pain Integument: Denies rash Neurologic: Denies headache, TIA, confusion Endocrine: Denies polyuria or polydipsia Lymphatic: Denies swollen glands Psychiatric: Denies depression or anxiety Hematologic: Denies previous anemia or easy bruising All other review of systems negative, except for those noted. PHYSICAL EXAM: VITAL SIGNS: BP 148/75 mmHg Pulse 88 Temp(Src) 97.5 ??F (36.4 ??C) (Oral) Resp 18 Ht 5' 8.5 (1.74 m) Wt 203 lb 8 oz (92.307 kg) BMI 30.49 kg/m2 SpO2 95% ? No Date 04/02/15 0700 - 04/03/15 0659 Shift 7907-9121 6257-5959 5636-3971 24 Hour Total I N T A K E P.O. 650 650 Shift Total (mL/kg) 650 (7) 650 (7) O U T P U T Urine (mL/kg/hr) 500 500 Shift Total (mL/kg) 500 (5.4) 500 (5.4) Weight (kg) 92.3 92.3 92.3 92.3 Constitutional: Well developed. Well nourished, obese. Non-toxic appearance. No acute distress. HENT: Normocephalic. Atraumatic. Bilateral external ears normal, Oropharynx moist. No oral exudate.Nose normal. Eyes: No Scleral icterus Neck: No Cervical or supraclavicular nodes Lymphatic: No lymphadenopathy noted. Cardiovascular: Normal S1 and S2, Normal rhythm, No murmurs, No rubs, No gallops. Thorax & Lungs: Normal breath sounds, No respiratory distress, No wheezing, No chest tenderness. Abdomen: Soft, epigastric tenderness. Bowel sounds are normoactive without bruits. No guarding, spasm or rebound. No hepatomegaly. No splenomegaly. No ascites Rectal: Deferred. Skin: Warm, dry. No erythema. No rash. Extremities: Intact distal pulses, No deformity. trace edema. Neurologic: Alert & oriented x 3 RESULTS Trop negative; hgb 8.5 (down from - 10/18/14); mcv 79 Lab Results Component Value Date ALT 17 10/18/2014 AST 14 10/18/2014 ALKPHOS 183* 10/18/2014 PROT 6.8 10/18/2014 LABALBU 3.6 10/18/2014 Lab Results Component Value Date WBC 8.5 04/01/2015 HGB 8.2* 04/02/2015 HCT 27.0* 04/02/2015 MCV 78.7* 04/01/2015 PLT 234 04/01/2015 Lab Results Component Value Date CREATININE 1.08 04/01/2015 BUN 20 04/01/2015 NA 138 04/01/2015 K 4.4 04/01/2015 CL 102 04/01/2015 CO2 23 04/01/2015 IMAGES Ek Ekg 12 Lead 04/02/2015 NOTICE: Preliminary tracing available for review; Final Interpretation by physician to follow. 04/02/[address] [facility] Interpretive Statements SINUS RHYTHM LOW QRS VOLTAGE IN PRECORDIAL LEADS [QRS DEFLECTION < 1.0 mV IN CHEST LEADS] INFERIOR MYOCARDIAL INFARCTION [40+ ms Q WAVE AND/OR ST/T ABNORMALITY IN II/aVF], PROBABLY OLD ANTEROSEPTAL MYOCARDIAL INFARCTION [40+ ms Q WAVE IN V1-V4], OF INDETERMINATE AGE Scanned Rhythm Strips 04/02/2015 Ordered by an unspecified provider. ASSESSMENT 1. Microcytic anemia-new onset compared with Oct 2. Remote hx PUD 3. Chest pain-atypical in origin PLAN 1. Strongly recommend EGD and colonoscopy to evaluate new onset microcytic anemia, however, she refuses colonoscopy. She is agreeable to pursue EGD, however, and verbalizes understanding risks of notpursing colonoscopy such as persistent anemia, polyps, tumor. Can pursue cologuard stool dna testing. 2. Schedule EGD for tomorrow 3. Check LFTs and lipase 4. PPI Thanks for consult 1. The patient indicates understanding of these issues and agrees with the plan. 2. I reviewed the patient's medical information and medical history. 3. I have reviewed the past medical, family, and social history sections including the medications and allergies listed in the above medical record. Be Brown MD 04/02/2015 7:15 PM [facility] Gastroenterology documented in this encounter ED Notes * Marisol Torre RN - 04/01/2015 5:14 PM EST Attempt to call report. Unable to take report at this time. * Marisol Torre RN - 04/01/2015 3:17 PM EST Rectal exam per Dr. Hart with assist of Sergio BANSAL * Mike Hart MD - 04/01/2015 1:22 PM EST Chief Complaint Patient presents with ??? Chest Pain started with chest pain 11:30 and twelve today while eating lunch, pain midsternal, thought it was heartburn, +SOB, +dizziness, felt nauseated but no vomiting, no fever, denies cough, Patient is a 64 y.o. female presenting with chest pain. History provided by: Patient and medical records Chest Pain Pain location: Substernal area Pain quality: sharp Pain radiates to: Does not radiate Pain radiates to the back: no Pain severity: Moderate Onset quality: Gradual (After eating a chili dog) Timing: Constant Progression: Unchanged Chronicity: New Context: eating and at rest Relieved by: Nothing Worsened by: Nothing tried Ineffective treatments: Antacids Associated symptoms: nausea Associated symptoms: no abdominal pain, no back pain, no cough, no shortness of breath and not vomiting Nausea: Severity: Mild Onset quality: Gradual Timing: Constant Progression: Unchanged Risk factors: coronary artery disease (patient reports she had a heart attack 5 years ago, she was treated at a hospital in [place], no stents placed), diabetes mellitus, hypertension and obesity Risk factors: no smoking Allergies Allergen Reactions ??? Compazine [Prochlorperazine Edisylate] ??? [facility] ??? Talwin [Pentazocine Lactate] Home Medications: Prior to Admission medications Medication Sig Start Date End Date Taking? Authorizing Provider ARIPiprazole (ABILIFY) 10 mg Oral Tablet Take 20 mg by mouth daily. Yes Provider, Historical HYDROcodone-acetaminophen (NORCO) 5-325 mg Oral Tablet Take 1 Tab by mouth every 6 hours as needed for Pain. 10/22/14 Joryd Badillo MD hydrOXYzine (ATARAX) 50 mg Oral Tablet Take 50 mg by mouth every 6 hours as needed for Itching. YesProvider, Historical lisinopril (PRINIVIL;ZESTRIL) 10 mg Oral Tablet Take by mouth daily. Yes Provider, Historical METFORMIN HCL (METFORMIN ORAL) Take by mouth. Yes Provider, Historical risperiDONE (RISPERDAL) 1 mg Oral Tablet Take 1 mg by mouth 2 times daily. Yes Provider, Historical roPINIRole (REQUIP) 0.5 mg Oral Tablet Take 0.5 mg by mouth 3 times daily. Yes Provider, Historical venlafaxine (EFFEXOR-XR) 150 mg Oral Capsule, Sust. Release 24 hr Take by mouth daily. Yes Provider, Historical Past Medical History: Past Medical [...] alcohol or use illicit drugs. Family History: No family history on file. Surgical History: Past Surgical History Procedure Laterality Date ??? Lung surgery ??? Tonsillectomy ??? Breast surgery ??? Orthopedic surgery ??? Joint replacement ??? Ankle surgery Review of Systems Respiratory: Negative for cough and shortness of breath. Cardiovascular: Positive for chest pain. Gastrointestinal: Positive for nausea. Negative for vomiting and abdominal pain. Musculoskeletal: Negative for back pain. All other systems reviewed and are negative. Blood pressure 146/74, pulse 72, temperature 98.2 ??F (36.8 ??C), resp. rate 16, height 5' 8.5 (1.74 m), weight 224 lb (101.606 kg), SpO2 98 %. Physical Exam Constitutional: [...] exhibits no distension. There is no tenderness. Thereis no rebound and no guarding. Genitourinary: Guaiac negative stool. Brown stool on rectal exam Musculoskeletal: Normal range of motion. She exhibits no edema or tenderness. Neurological: She is alert and oriented to person, place, and time. Skin: Skin is warm and dry. No rash noted. Psychiatric: She has a normal mood and affect. Her behavior is normal. Judgment and thought contentnormal. Nursing note and vitals reviewed. Procedures Radiology/EKG/Labs: Results for orders placed or performed during the hospital encounter of 04/01/15 XR CHEST AP PORTABLE Narrative AP PORTABLE CHEST, 04/01/2015 at 1358 HISTORY: Chest pain. FINDINGS: Comparison 10/18/2014. Heart size is mildly enlarged but stable. Lungs are clear. Right rib deformity noted from prior fracture. Impression IMPRESSION: No acute disease. CBC WITH AUTO DIFF Result Value Ref Range WBC 8.5 4.0 - 11.0 x10(3)/mcL RBC 3.51 (L) 3.80 - 5.10 x10(6)/mcL Hgb 8.5 (L) 12.0 - 15.6 gm/dL Hct 27.7 (L) 35.7 - 45.9 % MCV 78.7 (L) 82.5 - 99.8 fL MCH 24.1 (L) 27.0 - 34.3 pg MCHC 30.6 (L) 32.1 - 35.3 gm/dL RDW 17.1 (H) 11.5 - 15.0 % Platelet 234 144 - 423 x10(3)/mcL MPV 8.9 6.8 - 10.8 fL BASIC METABOLIC PANEL Result Value Ref Range Sodium 138 136 - 145 mmol/L Potassium 4.4 3.5 - 5.0 mmol/L Chloride 102 98 - 107 mmol/L Total CO2 23 22 - 29 mmol/L Anion Gap 13 7 - 16 mmol/L Calcium 9.1 8.8 - 10.2 mg/dL Glucose Lvl 158 (H) 82 - 100 mg/dL BUN 20 8 - 23 mg/dL Creatinine 1.08 0.51 - 1.30 mg/dL GFR Afr Am >60 GFR Non Afr Am 51 TROPONIN-T Result Value Ref Range Troponin-T <0.01 (H) <=0.00 ng/mL TROPONIN-T Result Value Ref Range Troponin-T <0.01 <=0.00 ng/mL DIFFERENTIAL Result Value Ref Range Neut Percent 68.0 % Lymph Percent 21.1 % [place] Percent 6.6 % Eos Percent 3.4 % Baso Percent 0.9 % Neut# 5.8 1.8 - 7.7 x10(3)/mcL Lymph# 1.8 0.6 - 4.8 x10(3)/mcL [place]# 0.6 0.0 - 1.3 x10(3)/mcL Eos# 0.3 0.0 - 0.5 x10(3)/mcL Baso# 0.1 0.0 - 0.2 x10(3)/mcL SMEAR REVIEW Result Value Ref Range RBC Morph Microcytic Aniso Slight Microcyte Occasional Macrocyte Occasional EK EKG 12 LEAD Impression Stationary ECG Study [facility] Interpretive Statements 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 MYOCARDIAL INFARCTION, PROBABLY OLD No change since previous ECG Electronically Signed On 04-01-2015 16:40:24 EST by Abundio Marin MD EKG Interpretation Interpreted by me Rhythm: normal sinus Rate: normal [place]: normal Ectopy: none Conduction: normal ST Segments: no acute change T Waves: no acute change Q Waves: Inferior and anterior Clinical Impression: Sinus rhythm, inferior and anterior Q waves, no acute ST elevation or depression ED Course: Appropriate laboratory and radiology studies reviewed Patient is interviewed and examined. She is afebrile and nontoxic in appearance. There is no evidence of hypoxia or respiratory distress. She complained of chest pain after eating lunch today. There is some concern her symptoms could be gastrointestinal in origin. She does have a cardiac history. Her EKG shows no acute changes. Chest x-ray is clear. Cardiac labs are negative. Patient does have a significant drop in her hemoglobin when compared to labs from last summer. She reports a previous history of gastric ulcer. She denies any recent hematemesis or melena. Rectal exam reveals brown stoolwhich is heme negative. Patient was given IV Protonix. I made arrangements for her to be admitted to the hospital. We'll perform serial H&H's and keep her on Protonix. She'll also maintain cardiac monitoring and serial troponins. She is admitted in stable condition. Further diagnostic testing and consultation will be at the discretion of the admitting physician. ED Clinical Impression: Chest pain Anemia Rule out GI bleed Critical Care time Condition at Discharge/Transfer from Department: Stable This chart was completed using voice recognition technology and may contain unintended errors Mike Hart MD 04/01/15 [id number] documented in this encounter Miscellaneous Notes * Plan of Care - Claire Loaiza RN - 04/04/2015 9:21 AM EST Problem: Cardiac Dysfunction - 73 Goal: Patient will have adequate blood volume through coronary vasculature maintained and cardiac pump effectiveness will be improved Outcome: Progressing Denies CP Problem: Nutrition Imbalance, Cardiac Goal: Nutritional needs will be maintained Outcome: Progressing sitting up at bedside eating breakfast Problem: Safety: Fall Risk Goal: Patient will remain free of falls and injury Outcome: Progressing Bed alarm in use * H&P Update - Be Brown MD - 04/03/2015 12:16 PM EST Images from the original note were not included. Procedure: EGD Allergies: Allergies Allergen Reactions ??? Compazine [Prochlorperazine Edisylate] ??? [facility] ??? Talwin [Pentazocine Lactate] Previous anesthesia reaction: No Pre-Procedure Assessment: Risks, benefits, potential complications and alternatives discussed with the patients legally authorized retail representative. The patient's pre-procedure physical assessment indicates that the patient is suitable candidate for and agrees to the planned sedation and procedure. NPO as ordered for procedure: Yes Cardiovascular and Vital signs Stable: yes Comment: Adequate/Patient Oral Airway yes Comment: The Patient was examined as below GEN:NAD NEURO:A&Ox3 SKIN:no obvious rash or lesions on exposed surfaces HEENT:anicteric NECK:no lad CV:RRR PULM:CTA GI:soft, NTND :NTND EXT:no C/C/E H&P Update History and Physical within 30 days and on chart? yes History and Physical reviewed? yes Changes? no List: Physician Signature: Be Brown MD Date:04/03/2015 Time:12:16 PM * Plan of Care - Camryn Harris RN - 04/03/2015 10:11 AM EST Problem: Cardiac Dysfunction - 73 Goal: Patient will have adequate blood volume through coronary vasculature maintained and cardiac pump effectiveness will be improved Outcome: Progressing No complaints of chest pain this shift. Cardiac monitoring in place. Problem: Nutrition Imbalance, Cardiac Goal: Nutritional needs will be maintained Outcome: Progressing Pt tolerating current diet order Problem: Safety: Fall Risk Goal: Patient will remain free of falls and injury Outcome: Progressing Bed/chair alarm in use, non skid footwear applied, pt calls for assistance as needed. No falls thisshift Problem: Pain Management Goal: The patient???s stated pain goal will be reached and maintained. The patient???s stated pain goal will be reached and maintained Outcome: Progressing No complaints of pain this shift * Plan of Care - Jackeline Bill RN - 04/03/2015 1:29 AM EST Problem: Cardiac Dysfunction - 73 Goal: Patient will have adequate blood volume through coronary vasculature maintained and cardiac pump effectiveness will be improved Outcome: Progressing Pt BP 156/82, with oxygen at 100% on RA. Will continue to monitor. Problem: Safety: Fall Risk Goal: Patient will remain free of falls and injury Outcome: Progressing Pt has on nonskid footwear, bedside table and call light within reach. Will continue to monitor. Problem: Pain Management Goal: The patient???s stated pain goal will be reached and maintained. The patient???s stated pain goal will be reached and maintained Outcome: Progressing Pt has on c/o of pain at this time. Will continue to Monitor. * Plan of Care - Teodoro Whitt RN - 04/02/2015 6:10 PM EST Problem: Nutrition Imbalance, Cardiac Goal: Nutritional needs will be maintained Outcome: Progressing PT received dinner Problem: Safety: Fall Risk Goal: Patient will remain free of falls and injury Outcome: Progressing Bed alarm on, call light in reach, bed in lowest position, non-slip footwear on Problem: Pain Management Goal: The patient???s stated pain goal will be reached and maintained. The patient???s stated pain goal will be reached and maintained Outcome: Progressing No complaints of pain; PRN medications available for pain negation * Plan of Care - Therese Roman RN - 04/02/2015 3:04 PM EST Problem: Disposition/Transition of Care Goal: Patient will have a plan for disposition or transition to next level of care Outcome: Completed Date Met: 04/02/15 Will continue to follow for discharge planning. * Plan of Care - Caterina Liu RN - 04/02/2015 2:46 AM EST Problem: Cardiac Dysfunction - 73 Goal: Patient will have adequate blood volume through coronary vasculature maintained and cardiac pump effectiveness will be improved Outcome: Progressing Pt denies chest pain during assessment, VSS. Will continue to monitor. Problem: Nutrition Imbalance, Cardiac Goal: Nutritional needs will be maintained Outcome: Progressing Pt ate 85% of evening meal. Problem: Safety: Fall Risk Goal: Patient will remain free of falls and injury Outcome: Progressing Bed in lowest position, call light in reach, non-skid footwear in place, floors free of clutter. Nofalls this shift. Problem: Pain Management Goal: The patient???s stated pain goal will be reached and maintained. The patient???s stated pain goal will be reached and maintained Outcome: Progressing Pt denies pain during assessment. Will continue to monitor. documented in this encounter Plan of Treatment Scheduled Orders Name Type Priority Associated Diagnoses Order Schedule ESOPHAGOGASTRODUODENOSCOPY (EGD) Procedures Routine One Time for 1 Occurrences starting 04/02/2015 until 04/02/2015 FERRITIN Lab Routine Routine - Once for 1 Occurrences starting 04/02/2015 until 04/02/2015 documented as of this encounter Procedures Procedure Name Priority Date/Time Associated Diagnosis Comments SCANNED RHYTHM STRIPS 04/08/2015 9:48 PM EST IP CONSULT TO WOUND CARE Routine 016 9:27 AM EST GLUCOSE METER POC Routine 04/04/2015 8:49 AM EST TROPONIN-T Timed 04/04/2015 6:28 AM EST HEMOGLOBIN AND HEMATOCRIT Timed 2015 6:28 AM EST LIPASE LEVEL Early AM 04/04/2015 6:28 AM EST HEPATIC FUNCTION PANEL Early AM 6 6:28 AM EST SCANNED RHYTHM STRIPS 04/04/2015 1:06 AM EST GLUCOSE METER POC Routine 04/03/2015 9:15 PM EST HEMOGLOBIN AND HEMATOCRIT Timed 2015 6:21 PM EST GLUCOSE METER POC Routine 04/03/2015 5:48 PM EST GLUCOSE METER POC Routine 04/03/2015 3:23 PM EST GLUCOSE METER POC Routine 04/03/2015 2:16 PM EST NON-SURG RN CYTOLOGY REPORT Routine 04/03/19 16 12:32 PM EST PATHOLOGY TISSUE REPORT Routine 04/03/19 16 12:29 PM EST ESOPHAGOGASTRODUODENOSCOPY 04/03 12:19 PM EST gastropares is, mid esophageal ulcers, schatzki's ring GMED EGD Routine 04/03/2015 11:30 AM EST GLUCOSE METER POC Routine 04/03/2015 7:50 AM EST TROPONIN-T Timed 04/03/2015 6:09 AM EST HEMOGLOBIN AND HEMATOCRIT Timed 2015 6:09 AM EST LIPASE LEVEL Early AM 04/03/2015 6:09 AM EST HEPATIC FUNCTION PANEL Early AM 6 6:09 AM EST SCANNED RHYTHM STRIPS 04/03/2015 2:17 AM EST GLUCOSE METER POC Routine 04/02/2015 9:35 PM EST IRON/UIBC Routine 04/02/2015 6:08 PM EST VITAMIN B12/ FOLIC ACID Routine 04/02/19 16 6:08 PM EST HEMOGLOBIN AND HEMATOCRIT Timed 2015 6:08 PM EST RETICULOCYTE COUNT Routine 04/02/2015 6:08 PM EST THYROID STIMULATING HORMONE Routine 03/09 6:08 PM EST IRON LEVEL Routine 04/02/2015 6:08 PM EST FERRITIN Routine 04/02/2015 6:08 PM EST GLUCOSE METER POC Routine 04/02/2015 5:54 PM EST GLUCOSE METER POC Routine 04/02/2015 5:16 PM EST EC ECHOCARDIOGRAM COMPLETE W DOPPLER AND COLOR FLOW MAPPING Routine 04/02/2015 2:45 PM EST IP CONSULT TO NUTRITION Routine 04/02/19 16 11:05 AM EST GLUCOSE METER POC Routine 04/02/2015 9:13 AM EST EK EKG 12 LEAD Routine 04/02/2015 8:12 AM EST TROPONIN-T Timed 04/02/2015 5:48 AM EST HEMOGLOBIN AND HEMATOCRIT Timed 2015 5:48 AM EST SCANNED RHYTHM STRIPS 04/02/2015 5:37 AM EST GLUCOSE METER POC Routine 04/01/2015 9:04 PM EST TROPONIN-T Timed 04/01/2015 7:20 PM EST IP CONSULT TO WOUND CARE Routine 016 6:53 PM EST GLUCOSE METER POC Routine 04/01/2015 6:23 PM EST IP CONSULT TO GI Routine 04/01/2015 6:12 PM EST Procedure Note - Be Brown MD - 04/02/2015 2:50 PM ESTThis note is in progress. Images from the original note were not included. GI Consultation: Faby Palm is a 64 y.o. female asked to see us in consultation byAlessandra Trevino APRN & Campbell Huston MD for evaluation of chest painand microcytic anemia. Pt with DM, HTN, CAD, CVA, depression and remote hx PUD admitted through with acute onset of chest pain radiating to her back while eatingyesterday. Troponins negative but noted to have new onset anemia withhemoccult negative stool. She describes several week hx of epigastricpain, different than the chest pain yesterday, improves with eating orantacids. Denies any vomiting, diarrhea, constipation, melena,hematochezia, vaginal bleeding or epistaxis. Remote hx PUD in [place]>10 years ago; no prior colon. Takes ASA daily Prescriptions prior to admission Medication Sig Dispense Refill Last Dose ? ? ARIPiprazole (ABILIFY) 10 mg Oral Tablet Take 20 mg by mouth daily.Taking at Unknown time ? ? HYDROcodone-acetaminophen (NORCO) 5-325 mg Oral Tablet Take 1 Tab bymouth every 6 hours as needed for Pain. 12 Tab 0 Not Taking at Unknowntime ? ? hydrOXYzine (ATARAX) 50 mg Oral Tablet Take 50 mg by mouth every 6 hoursas needed for Itching. Taking at mckeon ? ? lisinopril (PRINIVIL;ZESTRIL) 10 mg Oral Tablet Take by mouth daily.Taking at Unknown time ? ? METFORMIN HCL (METFORMIN ORAL) Take by mouth. Taking at Unknown time ? ? risperiDONE (RISPERDAL) 1 mg Oral Tablet Take 1 mg by mouth nightly.Taking at Unknown time ? ? roPINIRole (REQUIP) 0.5 mg Oral Tablet Take 0.5 mg by mouth nightly.Taking at Unknown time ? ? venlafaxine (EFFEXOR-XR) 150 mg Oral Capsule, Sust. Release 24 hr [id number] mg by mouth nightly. Taking at Unknown time Medication: ? ? ARIPiprazole 20 mg Oral Daily ? ? insulin aspart 1-5 Units Subcutaneous QID WM ? ? lisinopril 10 mg Oral Daily ? ? metFORMIN 1,000 mg Oral BID WM ? ? nitroGLYCERIN 1 Inch Topical 4 times per day ? ? pantoprazole 40 mg Intravenous BID ? ? risperiDONE 1 mg Oral Nightly ? ? roPINIRole 0.5 mg Oral Nightly ? ? venlafaxine 150 mg Oral Nightly Allergies: Allergies Allergen Reactions ? ? Compazine [Prochlorperazine Edisylate] ? ? [facility] ? ? Talwin [Pentazocine Lactate] Immunizations: There is no immunization history for the selected administration types onfile for this patient. Family history, past medical history, and social history are reviewedas below. Past Medical History: PUD Past Medical History Diagnosis Date ? ? COPD (chronic obstructive pulmonary disease) (HCC) ? ? DDD (degenerative disc disease) ? ? CHF (congestive heart failure) (HCC) ? ? Diabetes mellitus (HCC) ? ? Hypertension ? ? Yeast infection recurrent ? ? Suicide attempt (HCC) ? ? Stroke (HCC) 2010 left side affected ? ? RLS (restless legs syndrome) Past Surgical History: Partial lobectomy (benign); breast reduction Past Surgical History Procedure Laterality Date ? ? Lung surgery ? ? Tonsillectomy ? ? Breast surgery ? ? Orthopedic surgery ? ? Joint replacement ? ? Ankle surgery Family History: Mother -larynx cancer History reviewed. No pertinent family history. Social History: History Substance Use Topics ? ? Smoking status: Never Smoker ? ? Smokeless tobacco: Not on file ? ? Alcohol Use: No ROS Constitutional: Denies fever,sweats, chills or weight loss Eyes: Denies change in visual acuity HENT: Denies hearing loss or dizziness Respiratory: Denies cough or shortness of breath Cardiovascular: Denies edema : Denies dysuria, hematuria, urgency or frequency Musculoskeletal: Denies back pain or joint pain Integument: Denies rash Neurologic: Denies headache, TIA, confusion Endocrine: Denies polyuria or polydipsia Lymphatic: Denies swollen glands Psychiatric: Denies depression or anxiety Hematologic: Denies previous anemia or easy bruising All other review of systems negative, except for those noted. PHYSICAL EXAM: VITAL SIGNS: BP 148/75 mmHg Pulse 88 Temp(Src) 97.5 ??F (36.4 ??C)(Oral) Resp 18 Ht 5' 8.5 (1.74 m) Wt 203 lb 8 oz (92.307 kg) BMI30.49 kg/m2 SpO2 95% ? No Date 04/02/15 0700 - 04/03/15 0659 Shift 8740-2600 3435-3304 4312-3560 24 Hour Total I N T A K E P.O. 650 650 Shift Total (mL/kg) 650 (7) 650 (7) O U T P U T Urine (mL/kg/hr) 500 500 Shift Total (mL/kg) 500 (5.4) 500 (5.4) Weight (kg) 92.3 92.3 92.3 92.3 Constitutional: Well developed. Well nourished, obese. Non-toxicappearance. No acute distress. HENT: Normocephalic. Atraumatic. Bilateral external ears normal,Oropharynx moist. No oral exudate. Nose normal. Eyes: No Scleral icterus Neck: No Cervical or supraclavicular nodes Lymphatic: No lymphadenopathy noted. Cardiovascular: Normal S1 and S2, Normal rhythm, No murmurs, No rubs, Nogallops. Thorax & Lungs: Normal breath sounds, No respiratory distress, [place]zing, No chest tenderness. Abdomen: Soft, epigastric tenderness. Bowel sounds are normoactivewithout bruits. No guarding, spasm or rebound. No hepatomegaly. Nosplenomegaly. No ascites Rectal: Deferred. Skin: Warm, dry. No erythema. No rash. Extremities: Intact distal pulses, No deformity. trace edema. Neurologic: Alert & oriented x 3 RESULTS Trop negative; hgb 8.5 (down from 13- 10/18/14); mcv 79 Lab Results Component Value Date ALT 17 10/18/2014 AST 14 10/18/2014 ALKPHOS 183* 10/18/2014 PROT 6.8 10/18/2014 LABALBU 3.6 10/18/2014 Lab Results Component Value Date WBC 8.5 04/01/2015 HGB 8.2* 04/02/2015 HCT 27.0* 04/02/2015 MCV 78.7* 04/01/2015 PLT 234 04/01/2015 Lab Results Component Value Date CREATININE 1.08 04/01/2015 BUN 20 04/01/2015 NA 138 04/01/2015 K 4.4 04/01/2015 CL 102 04/01/2015 CO2 23 04/01/2015 IMAGES Ek Ekg 12 Lead 04/02/2015 NOTICE: Preliminary tracing available for review; FinalInterpretation by physician to follow. 04/02/2015 Stationary ECG StudySt. Sandra LoweInterpretive StatementsSINUS RHYTHM LOW QRS VOLTAGE IN PRECORDIAL LEADS [QRSDEFLECTION < 1.0 mV IN CHEST LEADS] INFERIOR MYOCARDIAL INFARCTION [40+ msQ WAVE AND/OR ST/T ABNORMALITY IN II/aVF], PROBABLY OLD ANTEROSEPTALMYOCARDIAL INFARCTION [40+ ms Q WAVE IN V1-V4], OF INDETERMINATE AGE Scanned Rhythm Strips 04/02/2015 Ordered by an unspecified provider. ASSESSMENT 1. Microcytic anemia-new onset compared with Oct 2. Remote hx PUD 3. Chest pain-atypical in origin PLAN 1. Strongly recommend EGD and colonoscopy to evaluate new onset microcyticanemia, however, she refuses colonoscopy. She is agreeable to pursue EGD,however, and verbalizes understanding risks of not pursing colonoscopysuch as persistent anemia, polyps, tumor. Can pursue cologuard stool dnatesting. 2. Schedule EGD for tomorrow 3. Check LFTs and lipase 4. PPI Thanks for consult 1. The patient indicates understanding of these issues and agrees withthe plan. 2. I reviewed the patient's medical information and medical history. 3. I have reviewed the past medical, family, and social history sectionsincluding the medications and allergies listed in the above medicalrecord. Be Brown MD 04/02/2015 7:15 [facility] TROPONIN-T STAT 04/01/2015 3:55 PM EST XR CHEST AP PORTABLE EMMY 04/01/2015 2:01 PM EST TROPONIN-T STAT 04/01/2015 1:50 PM EST SMEAR REVIEW STAT 04/01/2015 1:50 PM EST DIFFERENTIAL STAT 04/01/2015 1:50 PM EST CBC WITH DIFF STAT 04/01/2015 1:50 PM EST BASIC METABOLIC PANEL STAT 04/01/2015 1:50 PM EST EK EKG 12 LEAD STAT 04/01/2015 1:27 PM EST SALINE LOCK IV STAT 04/01/2015 1:17 PM EST documented in this encounter Results * SCANNED RHYTHM STRIPS (04/08/2015 9:48 PM EST) Anatomical Region Laterality Modality Other 04/08/2015 9:48 PM EST us Unknown Unknown IMG ECG ORDERABLES Final Result * GLUCOSE METER POC (04/04/2015 8:49 AM EST) [facility] Signature Glucose Meter POC 75 70 - 100 mg/dL [facility] Blood specimen (specimen) 04/04/2015 8:49 AM EST 04/04/2015 8:49 AM EST us Campbell Huston MD POINT OF CARE TEST ORDERABLES Fi nal Result [facility] [address] [place] [address] * LIPASE LEVEL (04/04/2015 6:28 AM EST) Lipase Lvl 35 13 - 60 IU/L [facility] Blood specimen (specimen) 04/04/2015 6:28 AM EST 04/04/2015 6:57 AM EST Be Brown MD CHEMISTRY ORDERABLES Final R critical access hospital Performing Organization Address [facility] Phone Number [facility] [address] [place] [address] * (ABNORMAL) HEPATIC FUNCTION PANEL (04/04/2015 6:28 AM EST) Pathologist [facility] Total Protein 6.5 6.4 - 8.3 gm/dL [facility] Albumin 3.0(L) 3.2 - 4.6 gm/dL [facility] Bili Direct <0.2 0.0 - 0.3 mg/dL [facility] Bili Total 0.2 0.1 - 1.3 mg/dL [facility] AST 12 <=40 IU/L [facility] ALT 11 <=41 IU/L [facility] Alk Phos 143(H) 35 - 104 IU/L [facility] Blood specimen (specimen) 04/04/2015 6:28 AM EST 04/04/2015 6:57 AM EST us Be Brown MD CHEMISTRY ORDERABLES Final [facility] Performing Organization Address [facility] Phone Number [facility] [address] [place] [address] * TROPONIN-T (04/04/2015 6:28 AM EST) [facility] Troponin-T <0.01 <=0.00 ng/mL [facility] Comment: Values > or = 0.01 ng/mL have been shown to have prognostic value. Blood specimen (specimen) 04/04/2015 6:28 AM EST 04/04/2015 6:57 AM EST us Be Brown MD CHEMISTRY ORDERABLES Final R critical access hospital Performing Organization Address [facility] Phone Number [facility] [address] [place] [address] * (ABNORMAL) HEMOGLOBIN AND HEMATOCRIT (04/04/2015 6:28 AM EST) Hgb 8.0(L) 12.0 - 15.6 gm/dL [facility] Hct 26.0(L) 35.7 - 45.9 % [facility] Blood specimen (specimen) UPPER LIMB STRUCTURE / Unknown 04/04/2015 6:28 AM EST 04/04/2015 6:57 AM EST Be Brown MD HEMATOLOGY ORDERABLES Final Result Performing Organization Address [facility] [[email or web address]] Co de Phone Number [facility] [address] [place] [address] * SCANNED RHYTHM STRIPS (04/04/2015 1:06 AM EST) Anatomical Region Laterality Modality Other 04/04/2015 1:06 AM EST Unknown Unknown IMG ECG ORDERABLES Final Result * (ABNORMAL) GLUCOSE METER POC (04/03/2015 9:15 PM EST) [facility] Signature Glucose Meter POC 111(H) 70 - 100 mg/dL [facility] Blood specimen (specimen) 04/03/2015 9:15 PM EST 04/03/2015 9:15 PM EST Result [facility] Campbell Huston MD POINT OF CARE TEST ORDERABLES Fi nal Result Performing Organization Address [facility]/ZIP Co de Phone Number [facility] [address] [place] [address] * (ABNORMAL) HEMOGLOBIN AND HEMATOCRIT (04/03/2015 6:21 PM EST) Hgb 8.1(L) 12.0 - 15.6 gm/dL [facility] Hct 26.4(L) 35.7 - 45.9 % [facility] Blood specimen (specimen) UPPER LIMB STRUCTURE / Unknown 04/03/2015 6:21 PM EST 04/03/2015 7:01 PM EST Result Jaison Brown MD HEMATOLOGY ORDERABLES Final Result Performing Organization Address [facility]/ZIP Co de Phone Number [facility] [address] [place] [address] * GLUCOSE METER POC (04/03/2015 5:48 PM EST) Glucose Meter POC 71 70 - 100 mg/dL [facility] Blood specimen (specimen) 04/03/2015 5:48 PM EST 04/03/2015 5:48 PM EST Result Jaison Huston MD POINT OF CARE TEST ORDERABLES Fi nal Result Performing Organization Address [facility] Phone Number [facility] [address] [facility] [place] [address] * (ABNORMAL) GLUCOSE METER POC (04/03/2015 3:23 PM EST) Glucose Meter POC 68(L) 70 - 100 mg/dL [facility] Blood specimen (specimen) 04/03/2015 3:23 PM EST 04/03/2015 3:23 PM EST Result Jaison Huston MD POINT OF CARE TEST ORDERABLES Fi nal Result Performing Organization Address [facility] [[email or web address]] Co de Phone Number [facility] [address] [facility] [place] [address] * (ABNORMAL) GLUCOSE METER POC (04/03/2015 2:16 PM EST) Glucose Meter POC 52(L) 70 - 100 mg/dL [facility] Blood specimen (specimen) 04/03/2015 2:16 PM EST 04/03/2015 2:16 PM EST Result Jaison Huston MD POINT OF CARE TEST ORDERABLES Fi nal Result Performing Organization Address [facility] [[email or web address]] Co de Phone Number [facility] [address] [facility] [place] [address] * NON-SURG RN CYTOLOGY REPORT (04/03/2015 12:32 PM EST) Non-Manager Net Cytology Report ? PATIENT NAME:FABY PALM ? Non-Manager Net Cytology Report ? Accession Number ?Collected Date/Time ? Received Date/Time ? [id number] ? 04/03/15 12:32 EST ?04/04/15 14:30 EST ? Specimen Source ? Esophageal Brushing ? Diagnosis ? Negative for Malignancy. ? Comment ? The specimen consists of benign squamous and glandular epithelial cells. ? NOTE: No fungal organisms or viral changes are noted. ? Cytotechnologis t:DT, ??JOP ?04/05/2015 ? Completed by: ?ROX RODRÍGUEZ ?(Electronical ly signed by) ?04/05/2015 ? [facility] ? Gross Description ? 3 direct smears received. [facility] 04/03/2015 12:3 2 PM EST us Be Brown MD CYTOLOGY ORDERABLES Final Re sult [facility] [address] [facility] [place] [address] * PATHOLOGY TISSUE REPORT (04/03/2015 12:29 PM EST) Surgical Pathology Report ? PATIENT NAME:FABY PALM ?Surgical Pathology Report ? Accession Number ?Collected Date/Time ? Received Date/Time ? [id number] ? 04/03/15 12:29 EST ?04/03/15 16:29 EST ? Diagnosis ? 1) Duodenum, biopsy: ? - No histopathology in duodenal mucosa. ? 2) Esophageal ulcer, biopsy: ? - Ulcerative esophagitis. ? - No viral inclusions or fungal organisms identified. ? Yessi Ostedori ? (Electronically signed by) ? Verified: 04/04/2015 ? [facility] ? Clinical Information ? Iron deficiency anemia; gastroparesis, mid esophageal ulcers, Schatzki's ? ring. ? Gross Description ? The specimen arrives in formalin in 2 parts: ? Part 1) The first part is labeled duodenal biopsy and consists of 3 shaikh ? fragments ranging in size from 0.3-0.5 cm, entirely submitted in 1A. ? Part 2) The second part is labeled esophageal ulcer ??biopsy and consists ? of 4 shaikh ? fragments ranging in size from 0.2-0.5 cm, entirely submitted in 2A. / MLR ? MMY/LA ? Microscopic Description ? Microscopic examination is performed and the findings corroborate the ? diagnosis. [facility] 04/03/2015 12:2 9 PM EST us Be Brown MD PATHOLOGY ORDERABLES Final R esult [facility] [address] [place] [address] * GMED EGD (04/03/2015 11:30 AM EST) 04/03/2015 11:3 0 AM EST Impressions [facility] - 04/03/2015 12:38 PM EST Ring in the gastroesophageal junction. Food in the stomach body. Ulcers in the middle third of the esophagus. (Biopsy, Brushing). Normal mucosa in the whole examined duodenum. (Biopsy). Plan: Await pathology results Carafate 1g oral four times a day PPI Iron supplementation 2-3 times a day with Hg monitoring. If no improvement may need additional testing. Colonoscopy vs. Cologuard testing Follow-up office visit in 2 months This section is an excerpt of the full report. Be Brown MD GI PROCEDURE ORDERABLES Mildred l Result Performing Organization Address [facility] [[email or web address]] Co de Phone Number [facility] [address] [place] [address] * (ABNORMAL) GLUCOSE METER POC (04/03/2015 7:50 AM EST) Glucose Meter POC 68(L) 70 - 100 mg/dL [facility] Blood specimen (specimen) 04/03/2015 7:50 AM EST 04/03/2015 7:50 AM EST Campbell Huston MD POINT OF CARE TEST ORDERABLES Fi nal Result Performing Organization Address [facility] de Phone Number [facility] [address] [place] [address] * LIPASE LEVEL (04/03/2015 6:09 AM EST) [facility] Lipase Lvl 58 13 - 60 IU/L [facility] Blood specimen (specimen) 04/03/2015 6:09 AM EST 04/03/2015 7:17 AM EST Be Brown MD CHEMISTRY ORDERABLES Final R esult Performing Organization Address [facility] Co de Phone Number [facility] [address] [place] [address] * (ABNORMAL) HEPATIC FUNCTION PANEL (04/03/2015 6:09 AM EST) [facility] Total Protein 6.8 6.4 - 8.3 gm/dL [facility] Albumin 3.3 3.2 - 4.6 gm/dL [facility] Bili Direct <0.2 0.0 - 0.3 mg/dL [facility] Bili Total 0.2 0.1 - 1.3 mg/dL [facility] AST 14 <=40 IU/L [facility] ALT 13 <=41 IU/L [facility] Alk Phos 144(H) 35 - 104 IU/L [facility] Blood specimen (specimen) 04/03/2015 6:09 AM EST 04/03/2015 7:17 AM EST Be Brown MD CHEMISTRY ORDERABLES Final R critical access hospital Performing Organization Address [facility] de Phone Number [facility] [address] [place] [address] * TROPONIN-T (04/03/2015 6:09 AM EST) Troponin-T <0.01 <=0.00 ng/mL [facility] Comment: Values > or = 0.01 ng/mL have been shown to have prognostic value. Blood specimen (specimen) 04/03/2015 6:09 AM EST 04/03/2015 7:17 AM EST Be Brown MD CHEMISTRY ORDERABLES Final R esult Performing Organization Address [facility] de Phone Number [facility] [address] [place] [address] * (ABNORMAL) HEMOGLOBIN AND HEMATOCRIT (04/03/2015 6:09 AM EST) Hgb 8.0(L) 12.0 - 15.6 gm/dL [facility] Hct 25.4(L) 35.7 - 45.9 % [facility] Blood specimen (specimen) UPPER LIMB STRUCTURE / Unknown 04/03/2015 6:09 AM EST 04/03/2015 7:18 AM EST Be Brown MD HEMATOLOGY ORDERABLES Final Result Performing Organization Address City/[facility]/ZIP Co de Phone Number [facility] [address] [facility] [place] [address] * SCANNED RHYTHM STRIPS (04/03/2015 2:17 AM EST) Anatomical Region Laterality Modality Other 04/03/2015 2:17 AM EST Unknown Unknown IMG ECG ORDERABLES Final Result * GLUCOSE METER POC (04/02/2015 9:35 PM EST) [facility] Glucose Meter POC 92 70 - 100 mg/dL [facility] Blood specimen (specimen) 04/02/2015 9:35 PM EST 04/02/2015 9:35 PM EST Result [facility] Campbell Huston MD POINT OF CARE TEST ORDERABLES Fi nal Result Performing Organization Address [facility] [[email or web address]] Co de Phone Number [facility] [address] [place] [address] * VITAMIN B12/ FOLIC ACID (04/02/2015 6:08 PM EST) [facility] Vitamin B12 806 211 - 946 pg/mL [facility] Folic Acid Lvl 10.49 4.50 - 37.30 ng/mL [facility] Blood specimen (specimen) 04/02/2015 6:08 PM EST 04/02/2015 10:00 PM EST Narrative [facility] - 04/02/2015 10:39 PM EST Add to AM lab Campbell Huston MD CHEMISTRY ORDERABLES Edited Resu lt - Final Performing Organization Address City/[facility] [[email or web address]] Co de Phone Number [facility] [address] [place] [address] * (ABNORMAL) IRON LEVEL (04/02/2015 6:08 PM EST) Iron 22(L) 30 - 160 mcg/dL [facility] Blood specimen (specimen) UPPER LIMB STRUCTURE / Unknown 04/02/2015 6:08 PM EST 04/02/2015 10:00 PM EST Narrative [facility] - 04/02/2015 10:28 PM EST Add to AM lab us Campbell Huston MD CHEMISTRY ORDERABLES Final Resul t Performing Organization Address City/[facility]/ZIP Co de Phone Number [facility] [address] [place] [address] * THYROID STIMULATING HORMONE (04/02/2015 6:08 PM EST) Pathologist [facility] TSH 2.200 0.270 - 4.200 mcIU/mL [facility] Blood specimen (specimen) 04/02/2015 6:08 PM EST 04/02/2015 10:00 PM EST Kim Hernandez APRN CHEMISTRY ORDERABLES Final R esult Performing Organization Address City/[facility] [[email or web address]] [place] [address] * FERRITIN (04/02/2015 6:08 PM EST) Pathologist [facility] Ferritin 62 13 - 150 ng/mL [facility] Blood specimen (specimen) 04/02/2015 6:08 PM EST 04/02/2015 10:00 PM EST Kim Hernandez APRN CHEMISTRY ORDERABLES Final R esult Performing Organization Address [facility] [[email or web address]] [place] [address] * (ABNORMAL) RETICULOCYTE COUNT (04/02/2015 6:08 PM EST) Pathologist [facility] Retic Cnt Auto 2.7(H) 0.5 - 1.5 % [facility] Retic# [id number] 50 - 100 x10(3)/mcL [facility] Retic Corrected 1.8 0.5 - 2.3 % [facility] Blood specimen (specimen) 04/02/2015 6:08 PM EST 04/02/2015 10:00 PM EST Kim Hernandez APRN HEMATOLOGY ORDERABLES Final Result Performing Organization Address [facility] [place] [address] * (ABNORMAL) IRON/UIBC (04/02/2015 6:08 PM EST) Iron 21(L) 30 - 160 mcg/dL [facility] UIBC 337 112 - 347 mcg/dL [facility] Transferrin Saturation 6(L) 20 - 50 % [facility] Blood specimen (specimen) 04/02/2015 6:08 PM EST 04/02/2015 10:00 PM EST Kim Hernandez APRN CHEMISTRY ORDERABLES Final R esult Performing Organization Address [facility] [place] [address] * (ABNORMAL) HEMOGLOBIN AND HEMATOCRIT (04/02/2015 6:08 PM EST) Hgb 8.5(L) 12.0 - 15.6 gm/dL [facility] Hct 28.0(L) 35.7 - 45.9 % [facility] Blood specimen (specimen) UPPER LIMB STRUCTURE / Unknown 04/02/2015 6:08 PM EST 04/02/2015 6:31 PM EST Be Brown MD HEMATOLOGY ORDERABLES Final Result Performing Organization Address [facility] de Phone Number [facility] [address] [place] [address] * GLUCOSE METER POC (04/02/2015 5:54 PM EST) Glucose Meter POC 78 70 - 100 mg/dL [facility] Blood specimen (specimen) 04/02/2015 5:54 PM EST 04/02/2015 5:54 PM EST us Campbell Huston MD POINT OF CARE TEST ORDERABLES Fi nal Result [facility] [address] [facility] [address] [place] [address] * (ABNORMAL) GLUCOSE METER POC (04/02/2015 5:16 PM EST) Glucose Meter POC 63(L) 70 - 100 mg/dL [facility] Blood specimen (specimen) 04/02/2015 5:16 PM EST 04/02/2015 5:16 PM EST Campbell Huston MD POINT OF CARE TEST ORDERABLES Fi nal Result Performing Organization Address [facility] [[email or web address]] Co de Phone Number [facility] [address] [facility] [address] [place] [address] * EC ECHOCARDIOGRAM COMPLETE W DOPPLER AND COLOR FLOW MAPPING (04/02/2015 2:45 PM EST) [facility] Ejection Fraction 60-65 % [place] Anatomical Region Laterality Modality Electrocardiogra phy 04/02/2015 1:46 PM EST Impressions 04/03/2015 8:38 AM EST ??CONCLUSIONS ??Moderate ??concentric left ventricular hypertrophy. ??Abnormal relaxation filling pattern of the left ventricle for age (stage 1 diastolic dysfunction). ??Left ventricular function is normal. ??Moderate left atrial dilatation. ??Mild mitral regurgitation. ??Trace aortic regurgitation. ??Mild tricuspid regurgitation. ??Right ventricular systolic pressure estimated at 32 mmHg. ?? BRANDON BLAKE MD Narrative Procedure Note Brandon Blake MD - 04/03/2015 IMPRESSION CONCLUSIONS Moderate concentric left ventricular hypertrophy. Abnormal relaxation filling pattern of the left ventricle for age (stage1 diastolic dysfunction). Left ventricular function is normal. Moderate left atrial dilatation. Mild mitral regurgitation. Trace aortic regurgitation. Mild tricuspid regurgitation. Right ventricular systolic pressure estimated at 32 mmHg. BRANDON BLAKE MD us Sherif Bartholomew MD IMG ECHO ORDERABLES Final Re sult * GLUCOSE METER POC (04/02/2015 9:13 AM EST) Glucose Meter POC 93 70 - 100 mg/dL [facility] Blood specimen (specimen) 04/02/2015 9:13 AM EST 04/02/2015 9:13 AM EST us Campbell Huston MD POINT OF CARE TEST ORDERABLES Fi nal Result [facility] [address] [facility] [place] [address] * EK EKG 12 LEAD (04/02/2015 8:12 AM EST) Anatomical Region Laterality Modality Other 04/02/2015 8:12 AM EST Impressions 04/03/2015 1:33 AM EST ? Stationary ECG Study ? [facility] ? Interpretive Statements ? 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 MYOCARDIAL INFARCTION, OF INDETERMINATE AGE Electronically Signed On 04-03-2015 1:33:07 EST by Abundio Marin MD Narrative Procedure Note Abundio Marin MD - 04/03/2015 IMPRESSION [facility] 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 MYOCARDIAL INFARCTION, OF INDETERMINATE AGE Electronically Signed On 04-03-2015 1:33:07 EST by Abundio Marin MD Sherif Bartholomew MD IMG ECG ORDERABLES Final Res ult * (ABNORMAL) TROPONIN-T (04/02/2015 5:48 AM EST) Pathologist [facility] [place] Troponin-T <0.01(H) <=0.00 ng/mL [facility] Comment: Values > or = 0.01 ng/mL have been shown to have prognostic value. Blood specimen (specimen) 04/02/2015 5:48 AM EST 04/02/2015 6:48 AM EST Be Brown MD CHEMISTRY ORDERABLES Final R esult Performing Organization Address [facility] [[email or web address]] Co de Phone Number [address] [address] * (ABNORMAL) HEMOGLOBIN AND HEMATOCRIT (04/02/2015 5:48 AM EST) [facility] Hgb 8.2(L) 12.0 - 15.6 gm/dL [facility] Hct 27.0(L) 35.7 - 45.9 % [facility] Blood specimen (specimen) UPPER LIMB STRUCTURE / Unknown 04/02/2015 5:48 AM EST 04/02/2015 6:46 AM EST Be Brown MD HEMATOLOGY ORDERABLES Final Result Performing Organization Address [facility] de Phone Number [address] [address] * SCANNED RHYTHM STRIPS (04/02/2015 5:37 AM EST) Anatomical Region Laterality Modality Other 04/02/2015 5:37 AM EST us Unknown Unknown IMG ECG ORDERABLES Final Result * (ABNORMAL) GLUCOSE METER POC (04/01/2015 9:04 PM EST) Glucose Meter POC 217(H) 70 - 100 mg/dL [facility] Blood specimen (specimen) 04/01/2015 9:04 PM EST 04/01/2015 9:04 PM EST Sherif Bartholomew MD POINT OF CARE TEST ORDERABLE S Final Result Performing Organization Address [facility] [[email or web address]] Co de Phone Number [facility] [address] [facility] [address] * (ABNORMAL) TROPONIN-T (04/01/2015 7:20 PM EST) [facility] Troponin-T <0.01(H) <=0.00 ng/mL [facility] Comment: Values > or = 0.01 ng/mL have been shown to have prognostic value. Blood specimen (specimen) 04/01/2015 7:20 PM EST 04/01/2015 8:26 PM EST Sherif Bartholomew MD CHEMISTRY ORDERABLES Final R esult Performing Organization Address [facility] de Phone Number [facility] [address] [place] [address] * (ABNORMAL) GLUCOSE METER POC (04/01/2015 6:23 PM EST) Glucose Meter POC 222(H) 70 - 100 mg/dL [facility] Blood specimen (specimen) 04/01/2015 6:23 PM EST 04/01/2015 6:23 PM EST Sherif Barhtolomew MD POINT OF CARE TEST ORDERABLE S Final Result Performing Organization Address City/[facility] [[email or web address] Co de Phone Number [facility] [address] [facility] [place] [address] * TROPONIN-T (04/01/2015 3:55 PM EST) Troponin-T <0.01 <=0.00 ng/mL [facility] Comment: Values > or = 0.01 ng/mL have been shown to have prognostic value. Blood specimen (specimen) 04/01/2015 3:55 PM EST 04/01/2015 4:04 PM EST Mike Hart MD CHEMISTRY ORDERABLES Final Re sult [facility] [address] [facility] [place] [place], [place] [id number] * XR CHEST AP PORTABLE (04/01/2015 2:01 PM EST) Anatomical Region Laterality Modality Chest Radiographic Whit ging 04/01/2015 2:01 PM EST Impressions 04/01/2015 2:16 PM EST IMPRESSION: No acute disease. Narrative 04/01/2015 2:16 PM EST AP PORTABLE CHEST, 04/01/2015 at 1358 HISTORY: Chest pain. FINDINGS: Comparison 10/18/2014. Heart size is mildly enlarged but stable. Lungs are clear. Right rib deformity noted from prior fracture. Procedure Note Luis E Wayne MD - 04/01/2015 AP PORTABLE CHEST, 04/01/2015 at 1358 HISTORY: Chest pain. FINDINGS: Comparison 10/18/2014. Heart size is mildly enlarged but stable. Lungs are clear. Right rib deformity noted from prior fracture. IMPRESSION: No acute disease. Mike Hart MD IMG DIAGNOSTIC IMAGING ORDERA BLES Final Result * SMEAR REVIEW (04/01/2015 1:50 PM EST) RBC Morph Microcytic [facility] Aniso Slight [facility] Microcyte Occasional [facility] Macrocyte Occasional [facility] Blood specimen (specimen) 04/01/2015 1:50 PM EST 04/01/2015 1:59 PM EST Mike Hart MD HEMATOLOGY ORDERABLES Final R critical access hospital Performing Organization Address [facility] [[email or web address]] Co de Phone Number [facility] [address] [address] * DIFFERENTIAL (04/01/2015 1:50 PM EST) Neut Percent 68.0 % [facility] Lymph Percent 21.1 % [facility] [place] Percent 6.6 % [facility] Eos Percent 3.4 % [facility] Baso Percent 0.9 % [facility] Neut# 5.8 1.8 - 7.7 x10(3)/mcL [facility] Lymph# 1.8 0.6 - 4.8 x10(3)/mcL [facility] [place]# 0.6 0.0 - 1.3 x10(3)/mcL [facility] Eos# 0.3 0.0 - 0.5 x10(3)/mcL [facility] Baso# 0.1 0.0 - 0.2 x10(3)/mcL [facility] Blood specimen (specimen) 04/01/2015 1:50 PM EST 04/01/2015 1:59 PM EST Mike Hart MD HEMATOLOGY ORDERABLES Final R critical access hospital Performing Organization Address City/[facility] [[email or web address]] Co de Phone Number [facility] [address] [address] * (ABNORMAL) TROPONIN-T (04/01/2015 1:50 PM EST) Pathologist [facility] [place] Troponin-T <0.01(H) <=0.00 ng/mL [facility] Comment: Values > or = 0.01 ng/mL have been shown to have prognostic value. Blood specimen (specimen) 04/01/2015 1:50 PM EST 04/01/2015 1:59 PM EST Mike Hart MD CHEMISTRY ORDERABLES Final Re sult Performing Organization Address [facility] de Phone Number [facility] [address] [place] [address] * (ABNORMAL) BASIC METABOLIC PANEL (04/01/2015 1:50 PM EST) [facility] Sodium 138 136 - 145 mmol/L [facility] Potassium 4.4 3.5 - 5.0 mmol/L [facility] Chloride 102 98 - 107 mmol/L [facility] Total CO2 23 22 - 29 mmol/L [facility] Anion Gap 13 7 - 16 mmol/L [facility] Calcium 9.1 8.8 - 10.2 mg/dL [facility] Glucose Lvl 158(H) 82 - 100 mg/dL [facility] BUN 20 8 - 23 mg/dL [facility] Creatinine 1.08 0.51 - 1.30 mg/dL [facility] GFR Afr Am >60 [facility] GFR Non Afr Am 51 [facility] Blood specimen (specimen) UPPER LIMB STRUCTURE / Unknown 04/01/2015 1:50 PM EST 04/01/2015 1:59 PM EST Mike Hart MD CHEMISTRY ORDERABLES Edited R esult - Final Performing Organization Address [facility] de Phone Number [facility] [address] [place] [address] * (ABNORMAL) CBC WITH AUTO DIFF (04/01/2015 1:50 PM EST) Pathologist [facility] [place] WBC 8.5 4.0 - 11.0 x10(3)/mcL [facility] RBC 3.51(L) 3.80 - 5.10 x10(6)/mcL [facility] Hgb 8.5(L) 12.0 - 15.6 gm/dL [facility] Hct 27.7(L) 35.7 - 45.9 % [facility] MCV 78.7(L) 82.5 - 99.8 fL [facility] MCH 24.1(L) 27.0 - 34.3 pg [facility] MCHC 30.6(L) 32.1 - 35.3 gm/dL [facility] RDW 17.1(H) 11.5 - 15.0 % [facility] Platelet 234 144 - 423 x10(3)/mcL [facility] MPV 8.9 6.8 - 10.8 fL [facility] Blood specimen (specimen) UPPER LIMB STRUCTURE / Unknown 04/01/2015 1:50 PM EST 04/01/2015 1:59 PM EST us Mike Hart MD HEMATOLOGY ORDERABLES Final R esult Performing Organization Address City/State/[facility] [[email or web address]] Co de Phone Number [facility] [address] [place] [address] * EK EKG 12 LEAD (04/01/2015 1:27 PM EST) Anatomical Region Laterality Modality Other 04/01/2015 1:27 PM EST Impressions 04/01/2015 4:40 PM EST ? [facility] ? Interpretive Statements ? 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 MYOCARDIAL INFARCTION, PROBABLY OLD No change since previous ECG Electronically Signed On 04-01-2015 16:40:24 EST by Abundio Marin MD Narrative Procedure Note Abundio Marin MD - 04/01/2015 IMPRESSION Stationary ECG Study [facility] Interpretive Statements 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 MYOCARDIAL INFARCTION, PROBABLY OLD No change since previous ECG Electronically Signed On 04-01-2015 16:40:24 EST by Abundio Marin MD Mike Hart MD IMG ECG ORDERABLES Final Resu lt documented in this encounter Visit Diagnoses Diagnosis Acute blood loss anemia- Primary Acute posthemorrhagic anemia Chest pain, unspecified chest pain type Anemia, unspecified anemia type Essential hypertension Unspecified essential hypertension Chest pain Chest pain, unspecified Gastrointestinal hemorrhage associated with gastroduodenitis Hemiparesis affecting left side as late effect of stroke (HCC) Hemiplegia affecting unspecified side, late effect of cerebrovascular disease ELIU (iron deficiency anemia) Iron deficiency anemia, unspecified documented in this encounter Admitting Diagnoses Diagnosis Chest pain Chest pain, unspecified documented in this encounter Administered Medications Inactive Administered Medications - up to 1 most recent administrations Medication Order MAR Action Action Date Dose Rate Site ARIPiprazole (ABILIFY) tablet 20 mg 20 mg, Oral, DAILY, First dose on Wed04/01/15 at 2030, Until Discontinued Given 04/04/2015 10:05 AM EST 20 mg diphenhydrAMINE (BENADRYL) tablet 25 mg 25 mg, Oral, NIGHTLY PRN, Starting on Wed04/02/15 at 0018, Until Wed04/04/15 at 1730, Sleep Given 04/02/2015 8:35 PM EST 25 mg ferrous sulfate tablet 325 mg 325 mg, Oral, 2 TIMES DAILY WITH MEALS, First dose on Wed04/04/15 at 1215, Until Discontinued Given 04/04/2015 12:03 PM EST 325 mg gi cocktail suspension 30 mL 30 mL, Oral, ONCE, 1 dose, On Wed04/01/15 at 1630 Given 04/01/2015 4:42 PM EST 30 mL insulin aspart (NovoLOG) injection 1-5 Units 1-5 Units, Subcutaneous, 4 TIMES DAILY WITH MEALS, First dose on Wed04/01/15 at 2100, Until Discontinued, Low dose algorithm: FSBS Additional Insulin NPO/Bedtime 121-149 0 units 0 units 150-199 1 units 0 units 200-250 2 units 1 units 251-300 3 units 1 units 301-350 4 units 2 units Greater than 350 5 units, and call MD. 3 units Do not use NPO dosing If patient receiving TPN or tube feeds. Correction insulin doses must be by at least 3 hours. Waste Sort Code = BKC Given 04/01/2015 9:51 PM EST 1 Units iron sucrose (VENOFER) 200 mg in sodium chloride 0.9 % 100 mL IVPB 200 mg, Intravenous, DAILY, 3 doses, First dose on Wed04/02/15 at 1700, Last dose on Wed04/04/15 at 1700, Administer over 30 Minutes, VESICANT IV Started 04/03/2015 5:09 PM EST 200 mg 200 mL/hr lisinopril (PRINIVIL;ZESTril) tablet 10 mg 10 mg, Oral, DAILY, First dose on Wed04/01/15 at 2030, Until Discontinued, +++ACEI Medication+++ Given 04/04/2015 10:05 AM EST 10 mg LORazepam (ATIVAN) tablet 0.5 mg 0.5 mg, Oral, ONCE PRN, 1 dose, Starting on Wed04/03/15 at 2102, Until Wed04/03/15 at 2133, Anxiety Given 04/03/2015 9:33 PM EST 0.5 mg metFORMIN (GLUCOPHAGE) tablet 1,000 mg 1,000 mg, Oral, 2 TIMES DAILY WITH MEALS, First dose on Wed04/01/15 at 2030, Until Discontinued, For procedures using IV iodinated contrast: hold metformin at the time of or prior to the procedure, and for 48 hours after. Inform MD Given 04/04/2015 10:05 AM EST 1,000 mg miconazole (MICATIN) 2 % powder Topical, 2 TIMES DAILY, First dose on Wed04/04/15 at 1030, Until Discontinued, Application site: groins/folds Given 04/04/2015 10:07 AM EST nitroGLYCERIN (NITROGLYN) 2 % ointment 1 Inch 1 Inch, Topical, ONCE, 1 dose, On Wed04/01/15 at 1400 Patch Applied 04/01/2015 1:56 PM EST 1 Inch nitroGLYCERIN (NITROGLYN) 2 % ointment 1 Inch 1 Inch, Topical, EVERY 6 HOURS SCHEDULED (4 times per day), First dose on Wed04/01/15 at 1930, Until Discontinued, Wipe off old dose, apply to chest wall. Patch Applied 04/02/2015 11:38 PM EST 1 Inch oxyCODONE (ROXICODONE) immediate release tablet 5 mg 5 mg, Oral, EVERY 4 HOURS PRN, Starting on Wed04/03/15 at 1238, Until Francine 04/04/15 at 0725, Pain, Give if patient has received IV acetaminophen (OFIRMEV), PACU Given 04/03/2015 8:39 PM EST 5 mg pantoprazole (PROTONIX) injection 40 mg 40 mg, Intravenous, ONCE, 1 dose, On Wed04/01/15 at 1515, Dilute with 10 mL of 0.9% NaCl. Administer over 2 minutes. Given 04/01/2015 3:22 PM EST 40 mg pantoprazole (PROTONIX) injection 40 mg 40 mg, Intravenous, 2 TIMES DAILY, First dose on Wed04/01/15 at 2100, Until Discontinued, Dilute with 10 mL of 0.9% NaCl. Administer over 2 minutes. Given 04/02/2015 11:42 AM EST 40 mg pantoprazole (PROTONIX) tablet 40 mg 40 mg, Oral, DAILY, First dose on Wed04/03/15 at 0900, Until Discontinued Given 04/04/2015 10:05 AM EST 40 mg risperiDONE (RisperDAL) tablet 1 mg 1 mg, Oral, NIGHTLY, First dose on Wed04/01/15 at 2100, Until Discontinued Given 04/03/2015 8:39 PM EST 1 mg roPINIRole (REQUIP) tablet 0.5 mg 0.5 mg, Oral, NIGHTLY, First dose on Wed04/01/15 at 2100, Until Discontinued Given 04/03/2015 8:39 PM EST 0.5 mg sodium chloride 0.9% peripheral IV line flush 20-50 mL 20-50 mL, Intravenous, at 150-600 mL/hr, PRN, Starting on Wed04/03/15 at 1706, Until Francine 04/04/15 at 1730, Line Care, Use this order to document priming and flushing IV line after medication administration. IV Started 04/03/2015 5:08 PM EST 20 mL 150 mL/hr sodium chloride 0.9% syringe Intravenous, EVERY 8 HOURS SCHEDULED (3 times per day), First dose on Wed04/03/15 at 2200, Until Discontinued, Flush with 3-5 mL saline for saline lock maintenance. Given 04/04/2015 5:38 AM EST 10 mL sucralfate (CARAFATE) 100 mg/mL suspension 1 g 1 g, Oral, 4 TIMES DAILY BEFORE MEAL, First dose on Wed04/03/15 at 1630, Until Discontinued Given 04/04/2015 10:06 AM EST 1 g venlafaxine (EFFEXOR-XR) XR capsule 150 mg 150 mg, Oral, NIGHTLY, First dose on Wed04/01/15 at 2100, Until Discontinued Given 04/03/2015 8:39 PM EST 150 mg documented in this encounter Historical Medications * This list may reflect changes made after this encounter. METFORMIN HCL (METFORMIN ORAL) Take by mouth. 06/2015 lisinopril (PRINIVIL;ZESTRI L) 10 mg Oral Tablet Take 5 mg by mouth daily. 08/12/2016 risperiDONE (RISPERDAL) 1 mg Oral Tablet Take 2 mg by mouth nightly. 02/23/2017 venlafaxine (EFFEXOR-XR) 150 mg Oral Capsule, Sust. Release 24 hr Take 300 mg by mouth nightly. 10/15/2016 hydrOXYzine (ATARAX) 50 mg Oral Tablet Take 25 mg by mouth 2 times daily. Reported on 06/22/2016 06/24/2016 ARIPiprazole (ABILIFY) 10 mg Oral Tablet Take 30 mg by mouth 2 times daily. 02/23/2017 added in this encounter Active and Recently Administered Medications Times are shown in EST. Scheduled Medication Order 04/02/2015 04/03/2015 04/04/2015 ARIPiprazole (ABILIFY) tablet 20 mg (CANCELED) 20 mg, Oral, DAILY, First dose on Wed04/01/15 at 2030, Until Discontinued 0900 (Not Given - Provider: Aníbal Ureña LPN - Reason: NPO) 0852 (Given - Provider: Camryn Harris RN) 1005 (Given - Provider: Claire Loaiza, RN) ferrous sulfate tablet 325 mg 325 mg, Oral, 2 TIMES DAILY WITH MEALS, First dose on Wed04/04/15 at 1215, Until Discontinued 1203 (Given - Provider: Claire Loaiza, RN) iron sucrose (VENOFER) 200 mg in sodium chloride 0.9 % 100 mL IVPB (COMPLETED) 200 mg, Intravenous, DAILY, 3 doses, First dose on Wed04/02/15 at 1700, Last dose on Wed04/04/15 at 1700, Administer over 30 Minutes, VESICANT 1841 (IV Started - Provider: Teodoro Whitt RN)1911 (Stopped - Provider: Jackeline Bill RN)2214 (Canceled Entry - Provider: Jackeline Bill RN)2227 (Canceled Entry - Provider: Jackeline Bill RN)2235 (IV Started - Provider: Jackeline Bill RN)2244 (Stopped - Provider: Jackeline Bill, ROLF)2257 (Stopped - Provider: Jackeline Bill, ROLF)2305 (Stopped - Provider: Jackeline Bill, ROLF) 1709 (IV Started - Provider: Camryn Harris RN)1740 (Stopped - Provider: Camryn Harris, ROLF) 1700 (Due) lisinopril (PRINIVIL;ZESTril) tablet 10 mg (CANCELED) 10 mg, Oral, DAILY, First dose on Wed04/01/15 at 2030, Until Discontinued, +++ACEI Medication+++ 0900 (Not Given - Provider: Aníbal Ureña LPN - Reason: NPO) 0852 (Given - Provider: Camryn Harris RN) 1005 (Given - Provider: Claire Loaiza, ROLF) metFORMIN (GLUCOPHAGE) tablet 1,000 mg (CANCELED) 1,000 mg, Oral, 2 TIMES DAILY WITH MEALS, First dose on Wed04/01/15 at 2030, Until Discontinued, For procedures using IV iodinated contrast: hold metformin at the time of or prior to the procedure, and for 48 hours after. Inform 0800 (Not Given - Provider: Aníbal Ureña LPN - Reason: NPO)2046 (Given - Provider: Jackeline Bill RN) 0852 (Given - Provider: Camryn Harris RN)1828 (Given - Provider: Camryn Harris RN) 1005 (Given - Provider: Claire Loaiza, RN) miconazole (MICATIN) 2 % powder (CANCELED)(Linked Group 1) Topical, 2 TIMES DAILY, First dose on Wed04/04/15 at 1030, Until Discontinued, Application site: groins/folds 1007 (Given - Provider: Claire Loaiza, RN) nitroGLYCERIN (NITROGLYN) 2 % ointment 1 Inch (CANCELED) 1 Inch, Topical, EVERY 6 HOURS SCHEDULED (4 times per day), First dose on Wed04/01/15 at 1930, Until Discontinued, Wipe off old dose, apply to chest wall. 0000 (Not Given - Provider: Caterina Liu RN - Reason: Patient/family declined)0521 (Patch Applied - Provider: Caterina Liu RN)1325 (Patch Applied - Provider: Aníbal Ureña LPN)1855 (Patch Applied - Provider: Teodoro Whitt RN)2338 (Patch Applied - Provider: Jackeline Bill RN) 0520 (Not Given - Provider: Jackeline Bill RN - Reason: Patient/family declined)1200 (Not Given - Provider: Camryn Harris RN - Reason: Patient/family declined)1800 (Not Given - Provider: Camryn Harris RN - Reason: Patient/family declined) 0000 (Not Given - Provider: Kylah Omer RN - Reason: Patient/family declined)0600 (Not Given - Provider: Kylah Omer RN - Reason: Patient/family declined)1148 (Not Given - Provider: Claire Loaiza RN - Reason: Patient/family declined) pantoprazole (PROTONIX) injection 40 mg (CANCELED) 40 mg, Intravenous, 2 TIMES DAILY, First dose on Wed04/01/15 at 2100, Until Discontinued, Dilute with 10 mL of 0.9% NaCl. Administer over 2 minutes. 1142 (Given - Provider: Kyra Del Rosario RN) pantoprazole (PROTONIX) tablet 40 mg 40 mg, Oral, DAILY, First dose on Wed04/03/15 at 0900, Until Discontinued 145 (Given - Provider: Camryn Harris RN) 1005 (Given - Provider: Claire Loaiza RN) risperiDONE (RisperDAL) tablet 1 mg (CANCELED) 1 mg, Oral, NIGHTLY, First dose on Wed04/01/15 at 2100, Until Discontinued 2021 (Given - Provider: Jackeline Bill RN) 2038 (Given - Provider: Kylah Omer RN) roPINIRole (REQUIP) tablet 0.5 mg (CANCELED) 0.5 mg, Oral, NIGHTLY, First dose on Wed04/01/15 at 2100, Until Discontinued 2021 (Given - Provider: Jackeline Bill RN) 2038 (Given - Provider: Kylah Omer RN) sodium chloride 0.9% syringe (CANCELED) Intravenous, EVERY 8 HOURS SCHEDULED (3 times per day), First dose on Wed04/03/15 at 2200, Until Discontinued, Flush with 3-5 mL saline for saline lock maintenance. 2355 (Given - Provider: Kylah Omer RN) 0538 (Given - Provider: Kylah Omer RN) sucralfate (CARAFATE) 100 mg/mL suspension 1 g 1 g, Oral, 4 TIMES DAILY BEFORE MEAL, First dose on Wed04/03/15 at 1630, Until Discontinued 165 (Given - Provider: Camryn Harris RN)2038 (Given - Provider: Kylah Omer RN) 0819 (Bolus in Bag - Provider: Claire Loaiza RN)1006 (Given - Provider: Claire Loaiza RN) venlafaxine (EFFEXOR-XR) XR capsule 150 mg (CANCELED) 150 mg, Oral, NIGHTLY, First dose on Wed04/01/15 at 2100, Until Discontinued 2208 (Given - Provider: Jackeline Bill RN) 2038 (Given - Provider: Kylah Omer RN) PRN Medication Order 04/02/2015 04/03/2015 04/04/2015 diphenhydrAMINE (BENADRYL) tablet 25 mg (CANCELED) 25 mg, Oral, NIGHTLY PRN, Starting on Wed04/02/15 at 0018, Until Wed04/04/15 at 1730, Sleep 0032 (Given - Provider: Caterina Liu, ROLF)2034 (Given - Provider: Jackeline Bill RN) LORazepam (ATIVAN) tablet 0.5 mg (COMPLETED) 0.5 mg, Oral, ONCE PRN, 1 dose, Starting on Wed04/03/15 at 2102, Until Wed04/03/15 at 2133, Anxiety 2132 (Given - Provider: Kylah Omer, ROLF) oxyCODONE (ROXICODONE) immediate release tablet 5 mg (CANCELED) 5 mg, Oral, EVERY 4 HOURS PRN, Starting on Wed04/03/15 at 1238, Until Wed04/04/15 at 0725, Pain, Give if patient has received IV acetaminophen (OFIRMEV), PACU 2038 (Given - Provider: Kylah Omer, ROLF) sodium chloride 0.9% peripheral IV line flush 20-50 mL (CANCELED) 20-50 mL, Intravenous, at 150-600 mL/hr, PRN, Starting on Wed04/03/15 at 1706, Until Wed04/04/15 at 1730, Line Care, Use this order to document priming and flushing IV line after medication administration. 1708 (IV Started - Provider: Camryn Harris, ROLF)1756 (Stopped - Provider: Claire Loaiza RN) Linked Groups Order Group 1: miconazole (MICATIN) 2 % powder (CANCELED)Jump to med Topical, 2 TIMES DAILY, First dose on Wed04/04/15 at 1030, Until Discontinued, Application site: groins/folds And miconazole (MICATIN) 2 % powder (CANCELED) Topical, PRN, Starting on Wed04/04/15 at 0854, Until Wed04/04/15 at 1730, Wound Care, Application site: groins/folds documented in this encounter Orders Medications Ordered That Gaurav ht Not Have Been Administered Count Last Ordered Date First Ordered Date miconazole (MICATIN) 2 % powder 6 0.9 % NaCl infusion 04/03/2015 dimenhyDRINATE (DRAMAMINE) injection 25 mg 04/03/2015 fentaNYL (SUBLIMAZE) 50 mcg/ mL injection 25 mcg 1 04/03/2015 HYDROmorphone (DILAUDID) injection 0.25 mg 1 04/03/2015 meperidine (DEMEROL) 25 mg/m L injection (PF) 12.5 mg 1 04/03/2015 ondansetron (ZOFRAN) 4 mg/2 mL injection 4 mg 2 04/03/2015 04/01/2015 ondansetron (ZOFRAN-ODT) dis integrating tablet 8 mg 1 04/03/2015 oxyCODONE-acetaminophen (PER COCET) 5-325 mg per tablet 1 Tab 1 04/03/2015 sodium chloride 0.9% syringe 1 04/03/2015 acetaminophen (TYLENOL) suppository 650 mg 1 04/01/2015 acetaminophen (TYLENOL) tablet 650 mg 1 aspirin tablet 325 mg 1 04/01/2015 dextrose 50 % solution 25 mL 1 04/01/2015 glucagon (human recombinant) (GLUCAGEN) injection 1 mg 1 04/01/2015 HYDROcodone-acetaminophen (N ORCO) 5-325 mg per tablet 1 Tab 1 04/01/2015 ondansetron (ZOFRAN) tablet 4 mg 1 04/01/19 16 Lab Orders Without Results Count Last Ordered D ate First Ordered Date NON-SURG RN CYTOLOGY REQUEST 1 04/03/2015 PATHOLOGY TISSUE REQUEST 1 04/03/2015 Nursing Count Last Ordered Date First Orde red Date ADMISSION 3 04/03/2015 04/01/2015 CARDIAC MONITORING 1 04/01/2015 ED ENTER ADMISSION ORDER 1 04/01/2015 Consult Count Last Ordered Date First Orde red Date IP CONSULT TO WOUND CARE 2 04/04/2015 IP CONSULT TO NUTRITION 1 04/02/2015 IP CONSULT TO GI 1 04/01/2015 IV Count Last Ordered Date First Orde red Date SALINE LOCK IV 1 04/01/2015 Transfer Count Last Ordered Date First Orde red Date BED REQUEST 1 04/01/2015 documented in this encounter Care Teams Education Rn Relationship Specialty Start Date End Date Alessandra Trevino August, [address] [facility] [address] [place] [id number] PCP - General Nurse Practitioner-Family 08/29/14 09/20/16 documented as of this encounter
--- OUTSIDE RECORDS SUMMARY | 2024-02-16 15:03 | XMS_ITS | Clinical Summary ---
Author Organization Healthcare Address [address] [place] [address] Care Team Providers Care Primary Care Provider Name Role Phone Marcio Rodriguez MD Primary Care Provider + [phone] Allergies Active Allergy Reactions Criticality Noted Date Comments [place] Unknown - Patient st ates they do not know rxn details Low 08/29/2014 Pentazocine Unknown - Patient st ates they do not know rxn details Low 08/29/2014 Prochlorperazine Unknown - Patient st ates they do not know rxn details Low 08/29/2014 Medications GABAPENTIN PO 02/12/2020 Activ e OXYBUTYNIN CHLORIDE PO 02/12/2020 Active amLODIPine (Norvasc) 5 MG tablet 02/12/2020 Active ARIPiprazole (Abilify) 30 MG tablet 02/12/2020 Active Aspirin Buf,CaCarb-MgCar b-MgO, 81 MG tablet 02/12/2020 Active ATORVASTATIN CALCIUM PO 02/12/2020 Active CALCIUM-VITAMIN D-VITAMIN K PO 02/12/2020 Acti ve clopidogrel (Plavix) 75 MG tablet 02/12/2020 Active doxepin (SINEquan) 10 MG capsule 02/12/2020 Active insulin glargine (Basaglar KwikPen) 100 UNIT/ML injection 02/12/2020 Active lisinopril 5 MG tablet 02/12/2020 Active metFORMIN (Glucophage) 500 MG tablet 02/12/2020 Active omeprazole (PriLOSEC) [address] capsule 02/12/2020 Active sertraline (Zoloft) 100 MG tablet 02/12/2020 Active albuterol 108 (90 Base) MCG/ACT inhaler Inhale 2 puffs. Active amLODIPine (Norvasc) 5 MG tablet 06/18/2020 Active atorvastatin (Lipitor) 20 MG tablet 06/18/2020 Active buPROPion SR (Wellbutrin SR) 150 MG 12 hr tablet 06/18/2020 Active busPIRone (Buspar) 5 MG tablet Take 5 mg by mouth twice a day. Active cefdinir (Omnicef) 300 MG capsule 12/14/2020 Active clopidogrel (Plavix) 75 MG tablet 06/18/2020 Active doxepin (SINEquan) 10 MG capsule 06/18/2020 Active ertapenem (INVanz) 1 g injection 05/04/2021 Active glipiZIDE (Glucotrol) 10 MG tablet Take 10 mg by mouth twice a day. Active Icosapent Ethyl (Vascepa) 1 g capsule Take 1 g by mouth twice a day. Active BD AutoShield Duo 30G X 5 MM misc 08/15/2021 Active isosorbide mononitrate ER (Imdur) 60 MG 24 hr tablet Take 120 mg by mouth 1 (one) time each day. Active lactulose (Chronulac) 10 GM/15ML solution 06/30/2020 Ac tive lamoTRIgine (LaMICtal) 100 MG tablet Take 50 mg by mouth. Active levoFLOXacin (Levaquin) 250 MG tablet 06/27/2020 Active lidocaine (Xylocaine) 1 % injection 05/02/2021 Active lisinopril 5 MG tablet 06/18/2020 Active loperamide (Imodium) 2 MG capsule 01/04/2020 Active metFORMIN (Glucophage) 500 MG tablet 06/18/2020 Active nitrofurantoin, macrocrystal-mon ohydrate, (Macrobid) 100 MG capsule 04/13/2021 Active nitroglycerin (Nitrostat) 0.[address] under the tongue. Active omeprazole (PriLOSEC) [address] capsule 06/18/2020 Active oxybutynin XL (Ditropan-XL) 10 MG 24 hr tablet 06/18/2020 Act josafat QUEtiapine (SEROquel) 100 MG tablet 10/24/2020 Active sertraline (Zoloft) 100 MG tablet 06/18/2020 Active sodium chloride 0.9 % solution 10/23/2020 Acti ve sucralfate (Carafate) 1 GM/10ML suspension Take 1 g by mouth. Active traZODone (Desyrel) 100 MG tablet 06/15/2020 Active Family History Medical History Relation Name Comments Cardiac disorder Father Cataracts Father Thrombophilia Father Relation Name Status Comments Father Social History Tobacco Use Types Packs/Day Years Used Date Smoking Tobacco: Never Smokeless Tobacco: Never Alcohol Use Standard Drinks/Week Comments Never 0 (1 standard drink = 0.6 oz pur e alcohol) Comments Unknown Sex and Gender Information Value Date Recorded Sex Assigned at Not on file Legal Sex Female 7:28 PM EDT Gender Identity Not on file Sexual Orientation Not on file Last Filed Vital Signs Vital Sign Reading Time Taken Comments Blood Pressure 114/59 09/09/2021 9:21 AM EDT Pulse 51 09/09/2021 9:21 AM EDT Temperature - - Respiratory Rate - - Oxygen Saturation - - Inhaled Oxygen Concentration - - Weight 101 kg (222 lb) 09/09/2021 9:21 AM EDT Height 172.7 cm (5' 8 ) 09/09/2021 9:21 AM EDT Body Mass Index 33.75 09/09/2021 9:21 AM EDT Plan of Treatment Health Maintenance Due Date Last Done Comments [facility]-Depression Screening 1950 [facility]-Hepatitis C Screening 1950 [facility]-Infant/Child/Adol SDOH Screenings 1950 [facility]-Obesity Intervention 07/13/1957 [facility]- SDOH Screenings 07/13/1969 [facility]-Adult SDOH Screenings 07/13/1969 CT Colonography 07/13/1996 Colonoscopy 07/13/1996 FIT-DNA 07/13/1996 FIT 07/13/1996 FOBT 07/13/1996 Sigmoidoscopy 07/13/1996 [facility]-Colorectal Cancer Screening 07/13/1996 [facility]-Zoster Vaccines (1 of 2) 07/13/2001 [facility]-Medicare Annual Wellness (AWV) 07/27/2019 07/26/2018, 04/19/2018, 09/21/2016 [facility]-Bone Density Scan 07/05/2020 07/05/2018 [facility]-Breast Cancer Screening 07/25/2020 07/25/2018 [id number] Vaccine ( season) 2023 04/06/2020, 03/16/2020 [facility]-Influenza Vaccine (#1) 11/07/202301/07, 01/24/2019, 01/05/2018, Additional history exists [facility]-RSV Vaccine: 60+ Years or (1 - 1-dose 75+ series) 07/13/2026 [facility]-DTaP,Tdap,and Td Vaccines (2 - Td or Tdap) 12/16/2029 12/17/2019 [facility]-Pneumococcal Vaccine: 65+ Years Completed 07/26/2017, 12/26/2015, 10/19/2014, Additional history exists [facility]-Diabetes: Hemoglobin A1C Discontinued 10/28/2018 [facility]-HIB Vaccines Aged Out No longer e ligible based on patient's age to complete this topic [facility]-HPV Vaccines Aged Out No longer e ligible based on patient's age to complete this topic [facility]-Hepatitis A Vaccines Aged Out No longer eligible based on patient's age to complete this topic [facility]-IPV Vaccines Aged Out No longer e ligible based on patient's age to complete this topic [facility]-Rotavirus Vaccines Aged Out No lo nger eligible based on patient's age to complete this topic Procedures Procedure Name Priority Date/Time Associated Diagnosis Comments HEMOGLOBIN A1C Routine 10/28/2018 7:08 AM EDT from Last 3 Months or Most Recently Relevant to Health Maintenance Results * Hemoglobin A1c (10/28/2018 7:08 AM EDT) Hemoglobin A1c 5.6 4.7 - 6.0 % [facility] Comment: Glycohemoglobin Reference Range, 0 years and up: ??4.7 to 6.0% . HA1C Interpretive Data: Diagnosis of Diabetes: Diabetic > or = 6.5% Pre-diabetic 5.7 to 6.4% Non-diabetic < or = 5.6% . Glycemic Targets for Type I and Type II Diabetics: Non- Adults <7.0% Adults <6.0% Children and Adolescents <7.5% . Source: ??[place] [employer]. Standards of medical care in diabetes, 2017. Diabetes Care.2017:40 (suppl 1):S1-S135. . HbA1c assay performed by an ion-exchange chromatography method that is certified traceable to the DCCT. 10/28/2018 7:08 AM EDT 10/28/2018 7:19 AM EDT Pamela [facility] LAB BLOOD ORDERABLES Final Re sult [facility] from Last 3 Months or Most Recently Relevant to Health Maintenance Insurance MEDICARE [place]ICAID-[place] Care Teams Primary Care Provider Relationship Specialty Start Date End Date Marcio Rodriguez MD [address] [place] [address] PCP - General 07/19/20
--- OUTSIDE RECORDS SUMMARY | 2024-02-16 15:03 | XMS_ITS | Encounter Summary ---
Author Organization [place] [address] Care Team Providers Care Compliance Consultant Name Role Phone Alessandra Trevino August Primary [...] Expiration Date Visits Re quested Visits Authorized [id number] 1 1 Encounter Details Date Type Department Care Team (Late st Contact Info) Description 04/03/2015 11:30 AM EST - 04/03/2015 11:45 AM EST Surgery [facility]TT ENDOSCOPY [address] [place] [address] [place] [address] [place] [address] ESOPHAGOGASTRODUODENOSCOPY Surgery Details Date/Time Status Location OR Service Patient Class Case Class Case Type Trauma Case? 04/03/2015 11:30 AM Posted FTT ENDOSCOPY FTT ENDO 02 Endoscopy Inpatient N/A Panel 1 Procedure LRB Anes Op Region Wound Class Comments ESOPHAGOGASTRODUODENOSCOPY N/A Monit ored Anesthesia Care ESOPHAGOGASTROD UODENOSCOPY WITH BIOPSY AND BRUSHING Surgeon Surgeon Role Service Panel Chrissy Borwn MD Primary Endoscopy 1 documented in this encounter Social History [...] Huston MD - 04/04/2015 10:50 AM EST [facility] Discharge Summary Patient Name: Faby Palm [...] are the prescriptions that you need to bulk picker. You may get the following medications from any pharmacy - ferrous sulfate 325 mg (65 mg iron) Tab - pantoprazole 40 mg Tbec - sucralfate 100 mg/mL Susp Follow Up: Digital Designer Schedule an appointment as soon as possible for a visit Alessandra Trevino August, [address] [facility] [address] In 3 days Isabel Dumont MD [address] [facility] [address] Call Call for a follow up appointment Alessandra Trevino France, HISTOLOGY TECHNOLOGIST [address] [facility] [address] In 3 days Spent > 30 mns on discharge planing Signed: Campbell Huston MD 04/04/2015 10:50 AM documented in this encounter Discharge Instructions * Discharge Instructions* Claire Loaiza RN - 04/04/2015 10:55 AM EST [facility] Discharge Instructions - Following Endoscopy 1. A [...] sent through Care Everywhere. * PANTOPRAZOLE TABLETS (BAHRAINI) * SUCRALFATE ORAL SUSPENSION (BAHRAINI) * IRON TABLETS, CAPSULES, EXTENDED-RELEASE TABLETS (BAHRAINI) documented in this encounter Medications at Time [...] documented in this encounter Progress Notes * Chrissy Brown MD - 04/10/2015 4:37 PM ESTQuick Note: Please call patient with results consistent with pill esophagitis. The main pills are aspirin, nsaids, doxycycline, and others. Continue a PPI and make sure they take their medications with a full glass of water. * Claire Loaiza RN - 04/04/2015 12:19 PM EST Report called to [facility] * Therese Roman RN - 04/04/2015 11:47 AM EST 04/04/15 1139 Discharge Planning Evaluation Actual Discharge Plan 04/04/15 CC Final Note: Noted patient ready for discharge. [facility] to provide transportation for patient at 1:00 to take her back to the [facility]. CC available if needed. Anticipated post-acute care needs Personal Fpc * Campbell Huston MD - 04/04/2015 10:44 [...] Will also recommend pt F/U with a wafer production worker upon D/C for a biopsy. Pt aware [...] States she will think about the colonoscopy. Cruff Robel, MD * Therese Roman, ROLF - 04/03/2015 11:14 AM EST 04/03/15 1114 Discharge Planning Evaluation Actual Discharge Plan 04/03/15 CC Update: Noted plan for EGD today. Discharge plan remains for patient to return to the [facility] via [facility]. Will continue to follow. Anticipated post-acute care needs Personal Fpc * Teodoro Whitt RN - 04/02/2015 5:57 [...] bedside. She states she lives at the [facility] and plans on returning there at discharge. She states she uses a walkerthere. No home health. She uses [facility] for transportation. PCP is Dr. Trevino. [facility] takes care of her medications. Will continue to follow for discharge planning. Completed by CC/SW Yes Care Coordination Assessment Observation Information Provided to Patient/Family Yes Assessed In person interview with patient Mental Status Alert and oriented Does patient need interpreter and translator? No Decision Maker Him/Herself Activities of Daily Living Needs Assistance Where did the patient come from? Alf Support Systems Friends/Neighbors Quality of Support System [...] closely offering support, awaiting further input/instruction from coach cleaner. Thank you. * Liliana Marley - 04/01/2015 8:22 PM EST Coverage for Dr. Isabel Dumont is being handled by Dr. Néstor Hdzusionwaudelia Text message for GI consult sent 04/01/15 @ 2008 by Jamari Marley This will be handled in the morning documented in this encounter H&P Notes * Sherif Bartholomew MD - 04/01/2015 6:22 PM EST [facility] History and Physical Name: Faby Palm ADDRESS: No Address, No Phone Number Available [facility] [address] : 1950 AGE: 64 y.o. ADMITTING PHYSICIAN: [...] Allergen Reactions ??? Compazine [Prochlorperazine Edisylate] ??? Van Dyne ??? Talwin [Pentazocine Lactate] REVIEW OF SYSTEMS: [...] documented in this encounter Consult Notes * Chrissy Brown MD - 04/02/2015 2:50 PM ESTAssociated [...] bleeding or epistaxis. Remote hx PUD in [place] >10 years ago; no prior colon. Takes [...] Allergen Reactions ??? Compazine [Prochlorperazine Edisylate] ??? Van Dyne ??? Talwin [Pentazocine Lactate] Immunizations: There is [...] Date 04/02/15 0700 - 04/03/15 0659 Shift [id number] [phone] 24 Hour Total I N T A [...] allergies listed in the above medical record. Chrissy Brown MD 04/02/2015 7:15 PM [facility] Gastroenterology documented in this encounter ED [...] she was treated at a hospital in [place], no stents placed), diabetes mellitus, hypertension and obesity Risk factors: no smoking Allergies Allergen Reactions ??? Compazine [Prochlorperazine Edisylate] ??? Van Dyne ??? Talwin [Pentazocine Lactate] Home Medications: Prior to Admission medications Medication Sig Start Date End Date Taking? Authorizing Provider ARIPiprazole (ABILIFY) 10 mg Oral Tablet Take 20 mg by mouth daily. Yes Provider, Historical HYDROcodone-acetaminophen (NORCO) 5-325 mg Oral Tablet Take 1 Tab by mouth every 6 hours as needed for Pain. 10/22/14 Jordy Badillo MD hydrOXYzine (ATARAX) 50 mg Oral [...] Date ??? COPD (chronic obstructive pulmonary disease) ([facility]) ??? DDD (degenerative disc disease) ??? CHF [...] Percent 68.0 % Lymph Percent 21.1 % [place] Percent 6.6 % Eos Percent 3.4 % Baso Percent 0.9 % Neut# 5.8 1.8 - 7.7 x10(3)/mcL Lymph# 1.8 0.6 - 4.8 x10(3)/mcL [place]# 0.6 0.0 - 1.3 x10(3)/mcL Eos# 0.3 [...] by me Rhythm: normal sinus Rate: normal M[place]: normal Ectopy: none Conduction: normal ST Segments: [...] contain unintended errors Mike Hart MD 04/01/15 8817 documented in this encounter Miscellaneous Notes * [...] alarm in use * H&P Update - Chrissy Brown MD - 04/03/2015 12:16 PM EST Images from the original note were not included. Procedure: EGD Allergies: Allergies Allergen Reactions ??? Compazine [Prochlorperazine Edisylate] ??? Van Dyne ??? Talwin [Pentazocine Lactate] Previous anesthesia reaction: No Pre-Procedure Assessment: Risks, benefits, potential complications and alternatives discussed with the patients legally authorized maintenance representative. The patient's pre-procedure physical assessment indicates [...] reviewed? yes Changes? no List: Physician Signature: Chrissy Brown MD Date:04/03/2015 Time:12:16 PM * Plan of Care - Camryn Harris, RN - 04/03/2015 10:11 AM EST Problem: [...] METER POC Routine 04/03/2015 2:16 PM EST NON-CONDOMINIUM PROPERTY MANAGER CYTOLOGY REPORT Routine 04/03/19 16 12:32 PM [...] 04/01/2015 6:12 PM EST Procedure Note - Chrissy Brown MD - 04/02/2015 2:50 PM ESTThis [...] bleeding or epistaxis. Remote hx PUD in [place]>10 years ago; no prior colon. Takes ASA [...] mg Oral Capsule, Sust. Release 24 hr [id number] mg by mouth nightly. Taking at Unknown [...] ? ? Compazine [Prochlorperazine Edisylate] ? ? Van Dyne ? ? Talwin [Pentazocine Lactate] Immunizations: There is no immunization history for the selected administration types onfile for this patient. Family history, past medical history, and social history are reviewedas below. Past Medical History: PUD Past Medical History Diagnosis Date ? ? COPD (chronic obstructive pulmonary disease) ([facility]) ? ? DDD (degenerative disc disease) ? ? CHF (congestive heart failure) ([facility]) ? ? Diabetes mellitus ([facility]) ? ? Hypertension ? ? Yeast infection recurrent ? ? Suicide attempt ([facility]) ? ? Stroke ([facility]) 2010 left side affected ? ? RLS [...] Date 04/02/15 0700 - 04/03/15 0659 Shift [phone] 24 Hour Total I N T A [...] by physician to follow. 04/02/2015 Stationary ECG StudyStSuki LoweInterpretive StatementsSINUS RHYTHM LOW QRS VOLTAGE IN [...] and allergies listed in the above medicalrecord. Chrissy Brown MD 04/02/2015 7:15 PM [facility] Gastroenterology TROPONIN-T STAT 04/01/2015 3:55 PM EST [...] GLUCOSE METER POC (04/04/2015 8:49 AM EST) Glucose Meter POC 75 70 - 100 mg/dL [facility] POINT OF CARE LABORATORY Blood specimen (specimen) 04/04/2015 8:49 AM EST 04/04/2015 8:49 AM EST us Campbell Huston MD POINT OF CARE TEST ORDERABLES Fi nal Result [facility] POINT OF CARE LABORATORY [address] [facility] [place] [address] * LIPASE LEVEL (04/04/2015 6:28 AM EST) Lipase Lvl 35 13 - 60 IU/L [facility] Blood specimen (specimen) 04/04/2015 6:28 AM EST 04/04/2015 6:57 AM EST Chrissy Brown MD CHEMISTRY ORDERABLES Final [facility] Performing Organization Address [facility] Phone Number [facility] [address] [place] [address] * (ABNORMAL) HEPATIC FUNCTION PANEL (04/04/2015 6:28 AM EST) [facility] Total Protein 6.5 6.4 - 8.3 gm/dL [facility] Albumin 3.0(L) 3.2 - 4.6 gm/dL [facility] Bili Direct <0.2 0.0 - 0.3 mg/dL [facility] Bili Total 0.2 0.1 - 1.3 mg/dL [facility] AST 12 <=40 IU/L [facility] ALT 11 <=41 IU/L [facility] Alk Phos 143(H) 35 - 104 IU/L [facility] Blood specimen (specimen) 04/04/2015 6:28 AM EST 04/04/2015 6:57 AM EST Chrissy Brown MD CHEMISTRY ORDERABLES Final [facility] Performing Organization Address [facility] Phone Number [email or web address] [address] [address] * TROPONIN-T (04/04/2015 6:28 AM EST) [facility] Troponin-T <0.01 <=0.00 ng/mL [facility] Comment: Values > or = 0.01 ng/mL have been shown to have prognostic value. Blood specimen (specimen) 04/04/2015 6:28 AM EST 04/04/2015 6:57 AM EST Chrissy Brown MD CHEMISTRY ORDERABLES Final [facility] Performing Organization Address [facility] Phone Number [email or web address] [address] [place] [address] * (ABNORMAL) HEMOGLOBIN AND HEMATOCRIT (04/04/2015 6:28 AM EST) Hgb 8.0(L) 12.0 - 15.6 gm/dL [facility] Hct 26.0(L) 35.7 - 45.9 % [facility] Blood specimen (specimen) UPPER LIMB STRUCTURE / Unknown 04/04/2015 6:28 AM EST 04/04/2015 6:57 AM EST Chrissy Brown MD HEMATOLOGY ORDERABLES Final Result Performing Organization Address [facility] de Phone Number [facility] [address] [place] [address] * SCANNED RHYTHM STRIPS (04/04/2015 1:06 AM EST) Anatomical Region Laterality Modality Other 04/04/2015 1:06 AM EST Unknown Unknown IMG ECG ORDERABLES Final Result * (ABNORMAL) GLUCOSE METER POC (04/03/2015 9:15 PM EST) [facility] Signature Glucose Meter POC 111(H) 70 - 100 mg/dL [facility] POINT OF CARE LABORATORY Blood specimen (specimen) 04/03/2015 9:15 PM EST 04/03/2015 9:15 PM EST Result [facility] Campbell Huston MD POINT OF CARE TEST ORDERABLES Fi nal Result Performing Organization Address City/[facility] Co de Phone Number [facility] POINT OF CARE LABORATORY [address] [facility] [place] [address] * (ABNORMAL) HEMOGLOBIN AND HEMATOCRIT (04/03/2015 6:21 PM EST) Hgb 8.1(L) 12.0 - 15.6 gm/dL [facility] Hct 26.4(L) 35.7 - 45.9 % [facility] Blood specimen (specimen) UPPER LIMB STRUCTURE / Unknown 04/03/2015 6:21 PM EST 04/03/2015 7:01 PM EST Result Jaison Brown MD HEMATOLOGY ORDERABLES Final Result Performing Organization Address [facility]/ZIP Co de Phone Number [facility] [address] [place] [address] * GLUCOSE METER POC (04/03/2015 5:48 PM EST) Glucose Meter POC 71 70 - 100 mg/dL [facility] Blood specimen (specimen) 04/03/2015 5:48 PM EST 04/03/2015 5:48 PM EST Result Jaison Huston MD POINT OF CARE TEST ORDERABLES Fi nal Result Performing Organization Address [facility] Phone Number [facility] [address] [facility] [place] [address] * (ABNORMAL) GLUCOSE METER POC (04/03/2015 3:23 PM EST) Glucose Meter POC 68(L) 70 - 100 mg/dL [facility] Blood specimen (specimen) 04/03/2015 3:23 PM EST 04/03/2015 3:23 PM EST Result Jaison Huston MD POINT OF CARE TEST ORDERABLES Fi nal Result Performing Organization Address [facility] Co de Phone Number [facility] [address] [facility] [place] [address] * (ABNORMAL) GLUCOSE METER POC (04/03/2015 2:16 PM EST) Glucose Meter POC 52(L) 70 - 100 mg/dL [facility] Blood specimen (specimen) 04/03/2015 2:16 PM EST 04/03/2015 2:16 PM EST Result Jaison Huston MD POINT OF CARE TEST ORDERABLES Fi nal Result Performing Organization Address [facility] Co de Phone Number [facility] POINT OF CARE LABORATORY [address] [facility] [address] [place], [place] [address] * NON-CONDOMINIUM PROPERTY MANAGER CYTOLOGY REPORT (04/03/2015 12:32 PM EST) Non-Underground Distribution Engineer Cytology Report ? PATIENT NAME:FABY PALM ? Non-Underground Distribution Engineer Cytology Report ? Accession Number ?Collected Date/Time ? Received Date/Time ? [id number] ? 04/03/15 12:32 EST ?04/04/15 14:30 EST [...] Gross Description ? 3 direct smears received. [facility] 04/03/2015 12:3 2 PM EST us Chrissy Brown MD CYTOLOGY ORDERABLES Final Re sult [facility] [address] [facility] [place] [address] * PATHOLOGY TISSUE REPORT (04/03/2015 12:29 PM EST) Surgical Pathology Report ? PATIENT NAME:FABY PALM ?Surgical Pathology Report ? Accession Number ?Collected Date/Time ? Received Date/Time ? [id number] ? 04/03/15 12:29 EST ?04/03/15 16:29 EST ? Diagnosis ? 1) Duodenum, biopsy: ? - No histopathology in duodenal mucosa. ? 2) Esophageal ulcer, biopsy: ? - Ulcerative esophagitis. ? - No viral inclusions or fungal organisms identified. ? Yessi Osterhage ? (Electronically signed by) ? Verified: 04/04/2015 [...] and the findings corroborate the ? diagnosis. [facility] 04/03/2015 12:2 9 PM EST us Chrissy Brown MD PATHOLOGY ORDERABLES Final R esult [facility] [address] [place] [address] * GMED EGD (04/03/2015 11:30 AM EST) 04/03/2015 11:3 0 AM EST Impressions [facility] - 04/03/2015 12:38 PM EST Ring [...] is an excerpt of the full report. Chrissy Brown MD GI PROCEDURE ORDERABLES Mildred l Result Performing Organization Address [facility] Co de Phone Number [facility] [address] [place] [address] * (ABNORMAL) GLUCOSE METER POC (04/03/2015 7:50 AM EST) Glucose Meter POC 68(L) 70 - 100 mg/dL [facility] POINT OF CARE LABORATORY Blood specimen (specimen) 04/03/2015 7:50 AM EST 04/03/2015 7:50 AM EST Result [facility] Campbell Huston MD POINT OF CARE TEST ORDERABLES Fi nal Result Performing Organization Address [facility] Phone Number [facility] POINT OF CARE LABORATORY [address] [place] [address] * LIPASE LEVEL (04/03/2015 6:09 AM EST) [facility] Lipase Lvl 58 13 - 60 IU/L [facility] Blood specimen (specimen) 04/03/2015 6:09 AM EST 04/03/2015 7:17 AM EST Result [facility] Chrissy Brown MD CHEMISTRY ORDERABLES Final R esult Performing Organization Address [facility] de Phone Number [facility] [address] [place] [address] * (ABNORMAL) HEPATIC FUNCTION PANEL (04/03/2015 6:09 AM EST) [facility] Total Protein 6.8 6.4 - 8.3 gm/dL [facility] Albumin 3.3 3.2 - 4.6 gm/dL [facility] Bili Direct <0.2 0.0 - 0.3 mg/dL [facility] Bili Total 0.2 0.1 - 1.3 mg/dL [facility] AST 14 <=40 IU/L [facility] ALT 13 <=41 IU/L [facility] Alk Phos 144(H) 35 - 104 IU/L [facility] Blood specimen (specimen) 04/03/2015 6:09 AM EST 04/03/2015 7:17 AM EST Chrissy Brown MD CHEMISTRY ORDERABLES [facility] Performing Organization Address [facility] de Phone Number [address] [address] * TROPONIN-T (04/03/2015 6:09 AM EST) [facility] Troponin-T <0.01 <=0.00 ng/mL [facility] Comment: Values > or = 0.01 ng/mL have been shown to have prognostic value. Blood specimen (specimen) 04/03/2015 6:09 AM EST 04/03/2015 7:17 AM EST Chrissy Brown MD CHEMISTRY ORDERABLES Final R esult Performing Organization Address [facility] de Phone Number [facility] [address] [facility], [place] [id number] * (ABNORMAL) HEMOGLOBIN AND HEMATOCRIT (04/03/2015 6:09 AM EST) [facility] Hgb 8.0(L) 12.0 - 15.6 gm/dL [facility] Hct 25.4(L) 35.7 - 45.9 % [facility] Blood specimen (specimen) UPPER LIMB STRUCTURE / Unknown 04/03/2015 6:09 AM EST 04/03/2015 7:18 AM EST Chrissy Brown MD HEMATOLOGY ORDERABLES Final Result [facility] [address] [facility] [place] [address] * SCANNED RHYTHM STRIPS (04/03/2015 2:17 AM EST) Anatomical Region Laterality Modality Other 04/03/2015 2:17 AM EST Unknown Unknown IMG ECG ORDERABLES Final Result * GLUCOSE METER POC (04/02/2015 9:35 PM EST) [facility] Glucose Meter POC 92 70 - 100 mg/dL [facility] POINT OF CARE LABORATORY Blood specimen (specimen) 04/02/2015 9:35 PM EST 04/02/2015 9:35 PM EST Result [facility] Campbell Huston MD POINT OF CARE TEST ORDERABLES Fi nal Result Performing Organization Address [facility] Co de Phone Number [facility] POINT OF CARE LABORATORY [address] [place] [address] * VITAMIN B12/ FOLIC ACID (04/02/2015 6:08 PM EST) [facility] Vitamin B12 806 211 - 946 pg/mL [facility] Folic Acid Lvl 10.49 4.50 - 37.30 ng/mL [facility] Blood specimen (specimen) 04/02/2015 6:08 PM EST 04/02/2015 10:00 PM EST Narrative [facility] - 04/02/2015 10:39 PM EST Add to AM lab Campbell Huston MD CHEMISTRY ORDERABLES Edited Resu lt - Final Performing Organization Address City/[facility]/ZIP Co de Phone Number [facility] [address] [place] [address] * (ABNORMAL) IRON LEVEL (04/02/2015 6:08 PM EST) [facility] Iron 22(L) 30 - 160 mcg/dL [facility] Blood specimen (specimen) UPPER LIMB STRUCTURE / Unknown 04/02/2015 6:08 PM EST 04/02/2015 10:00 PM EST Narrative [facility] - 04/02/2015 10:28 PM EST Add to AM lab Campbell Huston MD CHEMISTRY ORDERABLES Final Resul t Performing Organization Address City/[facility]/[place] [address] * THYROID STIMULATING HORMONE (04/02/2015 6:08 PM EST) [facility] TSH 2.200 0.270 - 4.200 mcIU/mL [facility] Blood specimen (specimen) 04/02/2015 6:08 PM EST 04/02/2015 10:00 PM EST Kim Hernandez APRN CHEMISTRY ORDERABLES Final R esult Performing Organization Address City/[facility] [place] [address] * FERRITIN (04/02/2015 6:08 PM EST) [facility] Ferritin 62 13 - 150 ng/mL [facility] Blood specimen (specimen) 04/02/2015 6:08 PM EST 04/02/2015 10:00 PM EST Kim Hernandez APRN CHEMISTRY ORDERABLES Final R esult Performing Organization Address [facility] [place] [address] * (ABNORMAL) RETICULOCYTE COUNT (04/02/2015 6:08 PM EST) [facility] Retic Cnt Auto 2.7(H) 0.5 - 1.5 % [facility] Retic# 96 50 - 100 x10(3)/mcL [facility] Retic Corrected 1.8 0.5 - 2.3 % [facility] Blood specimen (specimen) 04/02/2015 6:08 PM EST 04/02/2015 10:00 PM EST Kim Hernandez APRN HEMATOLOGY ORDERABLES Final Result Performing Organization Address [facility] [place] [address] * (ABNORMAL) IRON/UIBC (04/02/2015 6:08 PM EST) Iron 21(L) 30 - 160 mcg/dL [facility] UIBC 337 112 - 347 mcg/dL [facility] Transferrin Saturation 6(L) 20 - 50 % [facility] Blood specimen (specimen) 04/02/2015 6:08 PM EST 04/02/2015 10:00 PM EST Kim Hernandez APRN CHEMISTRY ORDERABLES Final R esult Performing Organization Address [facility] [place] [address] * (ABNORMAL) HEMOGLOBIN AND HEMATOCRIT (04/02/2015 6:08 PM EST) [facility] Signature Hgb 8.5(L) 12.0 - 15.6 gm/dL [facility] Hct 28.0(L) 35.7 - 45.9 % [facility] Blood specimen (specimen) UPPER LIMB STRUCTURE / Unknown 04/02/2015 6:08 PM EST 04/02/2015 6:31 PM EST Chrissy Brown MD HEMATOLOGY ORDERABLES Final Result Performing Organization Address [facility] Co de Phone Number [facility] [address] [place] [address] * GLUCOSE METER POC (04/02/2015 5:54 PM EST) Glucose Meter POC 78 70 - 100 mg/dL [facility] POINT OF CARE LABORATORY Blood specimen (specimen) 04/02/2015 5:54 PM EST 04/02/2015 5:54 PM EST us Campbell Huston MD POINT OF CARE TEST ORDERABLES Fi nal Result Performing Organization Address City/[facility]/ZIP Co de Phone Number [facility] POINT OF CARE LABORATORY [address] [facility] [address] [place] [address] * (ABNORMAL) GLUCOSE METER POC (04/02/2015 5:16 PM EST) Glucose Meter POC 63(L) 70 - 100 mg/dL [facility] POINT OF CARE LABORATORY Blood specimen (specimen) 04/02/2015 5:16 PM EST 04/02/2015 5:16 PM EST us Campbell Huston MD POINT OF CARE TEST ORDERABLES Fi nal Result Performing Organization Address [facility] Co de Phone Number [facility] POINT OF CARE LABORATORY [address] [facility] [address] [place] [address] * EC ECHOCARDIOGRAM COMPLETE W DOPPLER AND COLOR FLOW MAPPING (04/02/2015 2:45 PM EST) Pathologist [facility] Ejection Fraction 60-65 % [place] Anatomical Region [...] Meter POC 93 70 - 100 mg/dL [facility] POINT OF CARE LABORATORY Blood specimen (specimen) 04/02/2015 9:13 AM EST 04/02/2015 9:13 AM EST us Campbell Huston MD POINT OF CARE TEST ORDERABLES Fi nal Result [facility] POINT OF CARE LABORATORY [address] [place] [address] * EK EKG 12 LEAD (04/02/2015 8:12 AM EST) Anatomical Region Laterality Modality Other 04/02/2015 8:12 AM EST Impressions 04/03/2015 1:33 AM EST ? Stationary ECG Study ? [facility] ? Interpretive Statements ? 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 Blood specimen (specimen) 04/02/2015 5:48 AM EST 04/02/2015 6:48 AM EST Chrissy Brown MD CHEMISTRY ORDERABLES Final R esult Performing Organization Address [facility] de Phone Number [address] [address] * (ABNORMAL) HEMOGLOBIN AND HEMATOCRIT (04/02/2015 5:48 AM EST) [facility] Hgb 8.2(L) 12.0 - 15.6 gm/dL [facility] Hct 27.0(L) 35.7 - 45.9 % [facility] Blood specimen (specimen) UPPER LIMB STRUCTURE / Unknown 04/02/2015 5:48 AM EST 04/02/2015 6:46 AM EST Chrissy Brown MD HEMATOLOGY ORDERABLES Final Result Performing Organization Address [facility] de Phone Number [facility] [address] [place] [address] * SCANNED RHYTHM STRIPS (04/02/2015 5:37 AM EST) Anatomical Region Laterality Modality Other 04/02/2015 5:37 AM EST Unknown Unknown IMG ECG ORDERABLES Final Result * (ABNORMAL) GLUCOSE METER POC (04/01/2015 9:04 PM EST) Glucose Meter POC 217(H) 70 - 100 mg/dL [facility] POINT OF [facility] Blood specimen (specimen) 04/01/2015 9:04 PM EST 04/01/2015 9:04 PM EST Sherif Bartholomew MD POINT OF CARE TEST ORDERABLE S Final Result Performing Organization Address [facility] Co de Phone Number [facility] [address] [place] [address] [place] [address] * (ABNORMAL) TROPONIN-T (04/01/2015 7:20 PM EST) Troponin-T <0.01(H) <=0.00 ng/mL [facility] Comment: Values > or = 0.01 ng/mL have been shown to have prognostic value. Blood specimen (specimen) 04/01/2015 7:20 PM EST 04/01/2015 8:26 PM EST Sherif Bartholomew MD CHEMISTRY ORDERABLES Final R esult Performing Organization Address [facility] Co de Phone Number [facility] [address] [place] [address] * (ABNORMAL) GLUCOSE METER POC (04/01/2015 6:23 PM EST) Glucose Meter POC 222(H) 70 - 100 mg/dL [facility] POINT [facility] Blood specimen (specimen) 04/01/2015 6:23 PM EST 04/01/2015 6:23 PM EST Sherif Bartholomew MD POINT OF CARE TEST ORDERABLE S Final Result Performing Organization Address [facility] Co de Phone Number [facility] POINT OF [facility] [address] [place] [address] * TROPONIN-T (04/01/2015 3:55 PM EST) Troponin-T <0.01 <=0.00 ng/mL [facility] Comment: Values > or = 0.01 ng/mL have been shown to have prognostic value. Blood specimen (specimen) 04/01/2015 3:55 PM EST 04/01/2015 4:04 PM EST Mike Hart MD CHEMISTRY ORDERABLES Final Re sult [facility] [address] [facility] [place] [address] * XR CHEST AP PORTABLE (04/01/2015 2:01 [...] Mike Hart MD HEMATOLOGY ORDERABLES Final R on license of [facility] Performing Organization Address City/[facility] Co de Phone Number [facility] [address] [address] * DIFFERENTIAL (04/01/2015 1:50 PM EST) Neut Percent 68.0 % [facility] Lymph Percent 21.1 % [facility] [place] Percent 6.6 % [facility] Eos Percent 3.4 % [facility] Baso Percent 0.9 % [facility] Neut# 5.8 1.8 - 7.7 x10(3)/mcL [facility] Lymph# 1.8 0.6 - 4.8 x10(3)/mcL [facility] [place]# 0.6 0.0 - 1.3 x10(3)/mcL [facility] Eos# 0.3 0.0 - 0.5 x10(3)/mcL [facility] Baso# 0.1 0.0 - 0.2 x10(3)/mcL [facility] Blood specimen (specimen) 04/01/2015 1:50 PM EST 04/01/2015 1:59 PM EST Mike Hart MD HEMATOLOGY ORDERABLES Final R on license of [facility] Performing Organization Address City/[facility] Co de Phone Number [facility] [address] [address] * (ABNORMAL) TROPONIN-T (04/01/2015 1:50 PM EST) Pathologist [facility] Troponin-T <0.01(H) <=0.00 ng/mL [facility] Comment: Values > or = 0.01 ng/mL have been shown to have prognostic value. Blood specimen (specimen) 04/01/2015 1:50 PM EST 04/01/2015 1:59 PM EST Mike Hart MD CHEMISTRY ORDERABLES Final Re sult Performing Organization Address [facility] de Phone Number [facility] [address] [place] [address] * (ABNORMAL) BASIC METABOLIC PANEL (04/01/2015 1:50 PM EST) Pathologist [facility] Sodium 138 136 - 145 mmol/L [facility] Potassium 4.4 3.5 - 5.0 mmol/L [facility] Chloride 102 98 - 107 mmol/L [facility] Total CO2 23 22 - 29 mmol/L [facility] Anion Gap 13 7 - 16 mmol/L [facility] Calcium 9.1 8.8 - 10.2 mg/dL [facility] Glucose Lvl 158(H) 82 - 100 mg/dL [facility] BUN 20 8 - 23 mg/dL [facility] Creatinine 1.08 0.51 - 1.30 mg/dL [facility] GFR Afr Am >60 [facility] GFR Non Afr Am 51 [facility] Blood specimen (specimen) UPPER LIMB STRUCTURE / Unknown 04/01/2015 1:50 PM EST 04/01/2015 1:59 PM EST Mike Hart MD CHEMISTRY ORDERABLES Edited R esult - Final Performing Organization Address [facility] Co de Phone Number [facility] [address] [place] [address] * (ABNORMAL) CBC WITH AUTO DIFF (04/01/2015 1:50 PM EST) WBC 8.5 4.0 - 11.0 x10(3)/mcL [facility] RBC 3.51(L) 3.80 - 5.10 x10(6)/mcL [facility] Hgb 8.5(L) 12.0 - 15.6 gm/dL [facility] Hct 27.7(L) 35.7 - 45.9 % [facility] MCV 78.7(L) 82.5 - 99.[address] [facility] MCH 24.1(L) 27.0 - 34.[address] [facility] MCHC 30.6(L) 32.1 - 35.3 gm/dL [facility] RDW 17.1(H) 11.5 - 15.0 % [facility] Platelet 234 144 - 423 x10(3)/mcL [facility] MPV 8.9 6.8 - 10.[address] [facility] Blood specimen (specimen) UPPER LIMB STRUCTURE / Unknown 04/01/2015 1:50 PM EST 04/01/2015 1:59 PM EST us Mike Hart MD HEMATOLOGY ORDERABLES Final R esult Performing Organization Address City/State/[facility] Co de Phone Number [facility] [address] [place] [id number] * EK EKG 12 LEAD (04/01/2015 1:27 PM EST) Anatomical Region Laterality Modality Other 04/01/2015 1:27 PM EST Impressions 04/01/2015 4:40 PM EST ? [facility] ? Interpretive Statements ? 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 MYOCARDIAL INFARCTION, PROBABLY OLD No change since previous ECG Electronically Signed On 04-01-2015 16:40:24 EST by Abundio Marin MD Narrative Procedure Note Abundio Marin MD - 04/01/2015 IMPRESSION Stationary ECG Study [facility] Interpretive Statements 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 MYOCARDIAL INFARCTION, PROBABLY OLD No change since previous ECG Electronically Signed On 04-01-2015 16:40:24 EST by Abundio Marin MD Mike Hart MD IMG ECG ORDERABLES Final Resu lt documented in this encounter Visit Diagnoses Not on filedocumented in this encounter Admitting Diagnoses Diagnosis Chest pain Chest pain, unspecified documented in this encounter Historical Medications * [...] 20 mg, Oral, DAILY, First dose on 04/01/15 at 2030, Until Discontinued 0900 (Not Given [...] Jackeline Bill RN)2244 (Stopped - Provider: Jackeline Bill RN)2257 (Stopped - Provider: Jackeline Bill RN)2305 (Stopped - Provider: Jackeline Bill RN) 1709 (IV Started - Provider: Camryn Harris RN)1740 (Stopped - Provider: Camryn Harris RN) 1700 (Due) lisinopril (PRINIVIL;ZESTril) tablet 10 mg (CANCELED) 10 mg, Oral, DAILY, First dose on Wed04/01/15 at 2030, Until Discontinued, +++ACEI Medication+++ 0900 (Not Given - Provider: Aníbal Ureña LPN - Reason: NPO) 0852 (Given - Provider: Camryn Harris, ROLF) 1005 (Given - Provider: Claire Loaiza, RN) metFORMIN (GLUCOPHAGE) tablet 1,000 mg (CANCELED) 1,000 mg, Oral, 2 TIMES DAILY WITH MEALS, First dose on Wed04/01/15 at 2030, Until Discontinued, For procedures using IV iodinated contrast: hold metformin at the time of or prior to the procedure, and for 48 hours after. Inform 0800 (Not Given - Provider: Aníbal Ureña LPN - Reason: NPO)2045 (Given - Provider: Jackeline Bill RN) 0852 [...] administration. 1708 (IV Started - Provider: Camryn Harris RN)1756 (Stopped - Provider: Claire Loaiza RN) Linked [...] Count Last Ordered Date First Ordered Date ferrous sulfate tablet 325 mg 1 04/04/2015 miconazole (MICATIN) 2 % powder 2 6 0.9 % NaCl infusion 1 04/03/2015 dimenhyDRINATE (DRAMAMINE) injection 25 mg 1 04/03/2015 fentaNYL (SUBLIMAZE) 50 mcg/ mL injection 25 mcg 1 04/03/2015 HYDROmorphone (DILAUDID) injection 0.25 mg 1 04/03/2015 LORazepam (ATIVAN) tablet 0.5 mg 1 04/03/19 16 meperidine (DEMEROL) 25 mg/m L injection (PF) 12.5 mg 1 04/03/2015 ondansetron (ZOFRAN) 4 mg/2 mL injection 4 mg 2 04/03/2015 04/01/2015 ondansetron (ZOFRAN-ODT) dis integrating tablet 8 mg 1 04/03/2015 oxyCODONE (ROXICODONE) immed iate release tablet 5 mg 1 04/03/2015 oxyCODONE-acetaminophen (PER COCET) 5-325 mg per tablet 1 Tab 1 04/03/2015 sodium chloride 0.9% periphe ral IV line flush 20-50 mL 1 04/03/2015 sodium chloride 0.9% syringe 2 04/03/2015 sucralfate (CARAFATE) 100 mg /mL suspension 1 g 1 04/03/2015 diphenhydrAMINE (BENADRYL) tablet 25 mg 1 0 04/02/2015 iron sucrose (VENOFER) 200 m g in sodium chloride 0.9 % 100 mL IVPB 1 04/02/2015 pantoprazole (PROTONIX) tablet 40 mg 1 03/09 acetaminophen (TYLENOL) suppository 650 mg 1 04/01/2015 acetaminophen (TYLENOL) tablet 650 mg 1 ARIPiprazole (ABILIFY) tablet 20 mg 1 04/01 aspirin tablet 325 mg 1 04/01/2015 dextrose 50 % solution 25 mL 1 04/01/2015 gi cocktail suspension 30 mL 1 04/01/2015 glucagon (human recombinant) (GLUCAGEN) injection 1 mg 1 04/01/2015 HYDROcodone-acetaminophen (N ORCO) 5-325 mg per tablet 1 Tab 1 04/01/2015 insulin aspart (NovoLOG) inj ection 1-5 Units 1 04/01/2015 lisinopril (PRINIVIL;ZESTril) tablet 10 mg 1 04/01/2015 metFORMIN (GLUCOPHAGE) tablet 1,000 mg 1 nitroGLYCERIN (NITROGLYN) 2 % ointment 1 Inch 2 04/01/2015 ondansetron (ZOFRAN) tablet 4 mg 1 04/01/19 16 pantoprazole (PROTONIX) injection 40 mg 2 0 04/01/2015 risperiDONE (RisperDAL) tablet 1 mg 1 04/01 roPINIRole (REQUIP) tablet 0.5 mg 1 016 venlafaxine (EFFEXOR-XR) XR capsule 150 mg 1 04/01/2015 Lab Orders Without Results Count Last Ordered D ate First Ordered Date NON-[employer] PROPERTY MA[employer]GER CYTOLOGY REQUEST 1 04/03/2015 PATHOLOGY TISSUE REQUEST [...] 04/01/2015 documented in this encounter Care Teams Compliance Consultant Relationship Specialty Start Date End Date Alessandra Trevino August,N [address] [facility] [address] [place] [address] PCP - General Nurse Practitioner-Family 08/29/14 09/20/16 documented as of this encounter
--- OUTSIDE RECORDS SUMMARY | 2024-02-16 15:03 | XMS_ITS | Encounter Summary ---
Author Organization Healthcare Address [address] [place] [address] Care Team Providers Care Jailer Name Role Phone Marcio Rodriguez MD Primary Care Provider [phone] Encounter Details Date Type Department Care Team (Latest Contact Info) Description 09/09/2021 Travel Social History Tobacco Use Types Packs/Day Years Used Date Smoking Tobacco: Never Smokeless Tobacco: Never Alcohol Use Standard Drinks/Week Comments Never 0 (1 standard drink = 0.6 oz pur e alcohol) Comments Unknown Sex and Gender Information Value Date Recorded Sex Assigned at Not on file Legal Sex Female 7:28 PM EDT Gender Identity Not on file Sexual Orientation Not on file COVID-19 Exposure Response Date Recorded In the last 10 days, have yo u been in contact with someone who was confirmed or suspected to have Coronavirus/COVID-19? No / Unsure 09/09/2021 9:10 AM EDT documented as of this encounter Plan of Treatment Not on file documented as of this encounter Visit Diagnoses Not on filedocumented in this encounter Additional Health Concerns Assessment Noted Time A fall risk assessment has been complete d for the patient 09/09/2021 9:23 AM EDT documented as of this encounter Care Teams Jailer Relationship Specialty Start Date End Date Marcio Rodriguez MD [address] [place] [address] PCP - General 07/19/20 documented as of this encounter
--- OUTSIDE RECORDS SUMMARY | 2024-02-16 15:03 | XMS_ITS | Encounter Summary ---
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 Name Role Phone Alessandra Trevino August Primary Care Provider + Reason for Visit * Reason Comments Extremity Weakness complains of left si ded numbness & tingling in foot, hx of old CVA and has residual weakness on left side related to that- today arrives complaining of more frequent falls and weakness, no LOC at any occurence, arrives alert adn oriented X4 * Auth/Cert/Inpt Specialty Diagnoses / Procedures Referred By Arsh patel Referred To Contact Diagnoses History of CVA (cerebrovascular accident) Frequent falls Weakness of left leg Referral ID Status Reason Start Date Expiration Date Visits Re quested Visits Authorized [id number] 1 1 Encounter Details Date Type Department Care Team (Late st Contact Info) Description 10/18/2014 3:18 PM EDT - 10/22/2014 2:41 PM EDT Emergency [facility] [address] [place] [address] Marcio Parker MD [address] [place] [address] Jordy Badilol MD [address] [place] [address] Weakness of left leg (Primary Dx); Frequent falls; History of CVA (cerebrovascular accident) Discharge Disposition: Nursing Facility Social History Tobacco Use Types Packs/Day [...] Sign Reading Time Taken Comments Blood Pressure 143/76 10/22/2014 1:10 PM EDT Pulse 91 10/22/2014 1:10 PM EDT Temperature 36.9 ??C (98.5 ??F) 10/22/2014 1:10 PM ED T Respiratory Rate 18 10/22/2014 1:10 PM EDT Oxygen Saturation 98% 10/22/2014 1:10 PM EDT Inhaled Oxygen Concentration - - Weight 101.6 kg (224 lb) 10/18/2014 3:20 PM EDT Height 174 cm (5' 8.5 ) 10/18/2014 10:43 PM EDT Body Mass Index 33.56 10/18/2014 3:20 PM EDT documented in this encounter Discharge Summaries * Jordy Badillo MD - 10/22/2014 12:47 PM EDT [facility] Discharge Summary Patient Name: Faby Palm : 1950 Admit Date: 10/18/2014 Discharge Date: 10/22/2014 Admitting Physician: Jordy Badillo MD Discharge Physician: Jordy Badillo MD Hospital Course Patient was admitted with left lower extremity weakness causing her to fall. She did not have any features to suggest an acute CVA. Patient had a MRI of the lumbar spine that showed: 1. Moderate degenerative disc and facet disease at L4-L5 with left side dominance, resulting in mild left central canal narrowing, left lateral recess narrowing and moderate left neural foraminal stenosis. 2. Mild to moderate diffuse disc bulge L3-L4 with moderate right and mild left neural foraminal narrowing. Mild central canal stenosis. 3. Bilateral L5-S1 moderate facet arthropathy. Neurosurgery was consulted, conservative management was recommended since patient did not have any back pain. It was recommended that she has an EMG done as outpatient. Patient was seen by physical therapy, alf nursing care was recommended. She was re-evaluated today, she is stable for discharge. Her blood pressure medications were adjusted to include Norvasc,Lisinopril and metoprolol in order to achieve good control. Consults: Treatment Team: Consulting Physician: Charmaine Chandler MD Consulting Physician: Shane Castano MD Discharge Exam: BP 168/80 mmHg Pulse 101 Temp(Src) 99.3 ??F (37.4 ??C) (Oral) Resp 18 Ht 5' 8.5 (1.74 m) Wt 224 lb (101.606 kg) BMI 33.56 kg/m2 SpO2 97% ? No Patient not in acute distress. Neck supple, no JVD. Lungs CTA. Heart regular S1, S2 are normal. No murmur. Abd soft, NT, ND, bowel sounds are present. Ext unilateral edema of the left leg. No calf tenderness Neuro AAO X3. Left lower extremity weakness. Discharge Diagnoses: Weakness of left leg History of CVA (cerebrovascular accident) Frequent falls Essential hypertension Peripheral motor neuropathy Condition at Discharge: stable Disposition: senior living care facility Discharge Medications:: Medication List START taking these medications amitriptyline 25 mg Tab Dose: 25 mg Qty: 30 Tab Refills: 0 Commonly known as: ELAVIL 25 mg, Oral, NIGHTLY amLODIPine 10 mg Tab Dose: 10 mg Qty: 30 Tab Refills: 0 Commonly known as: NORVASC 10 mg, Oral, DAILY aspirin 81 mg Chew Dose: 81 mg Qty: 30 Tab Refills: 0 81 mg, Oral, DAILY HYDROcodone-acetaminophen 5-325 mg Tab Dose: 1 Tab Qty: 12 Tab Refills: 0 Commonly known as: NORCO 1 Tab, Oral, EVERY 6 HOURS PRN lisinopril 40 mg Tab Dose: 40 mg Qty: 30 Tab Refills: 0 Commonly known as: PRINIVIL;ZESTril 40 mg, Oral, DAILY metoprolol 25 mg Tab Dose: 25 mg Qty: 60 Tab Refills: 0 Commonly known as: LOPRESSOR 25 mg, Oral, 2 TIMES DAILY CHANGE how you take these medications ARIPiprazole 2 mg Tab Dose: 2 mg Qty: 30 Tab Refills: 0 Commonly known as: ABILIFY 2 mg, Oral, DAILY What changed: - medication strength - how much to take - when to take this CONTINUE taking these medications roPINIRole 0.5 mg Tab Dose: 0.5 mg Refills: 0 Commonly known as: REQUIP venlafaxine 150 mg Cp24 Dose: 150 mg Qty: 30 Cap Refills: 0 Commonly known as: EFFEXOR-XR 150 mg, Oral, DAILY STOP taking these medications hydrOXYzine 50 mg Tab Commonly known as: ATARAX Where to Get Your Medications These are the prescriptions that you need to sisal picker. You may get the following medications from any pharmacy - amitriptyline 25 mg Tab - amLODIPine 10 mg Tab - ARIPiprazole 2 mg Tab - aspirin 81 mg Chew - HYDROcodone-acetaminophen 5-325 mg Tab - lisinopril 40 mg Tab - metoprolol 25 mg Tab - venlafaxine 150 mg Cp24 Follow Up: Alessandra Trevino August, HOLLOW [employer] PARTITION ERECTOR [address] [facility] [address] [facility] [address] [place], [place] [id number] Alessandra Trevino August, HO[employer] TILE PARTITION ERECTOR [address] [facility] [address] [facility] [address] Time spent > 30 mn Signed: Jordy Badillo MD 10/22/2014 12:47 PM documented in this encounter Discharge Instructions * Discharge Instructions* Deena Gallegos RN - 10/22/2014 2:01 PM EDT Metoprolol tablets What is this medicine? METOPROLOL (me TOE proe lole) is a beta-laquita. Beta-blockers reduce the workload on the heart andhelp it to beat more regularly. This medicine is used to treat high blood pressure and to prevent chest pain. It is also used to after a heart attack and to prevent an additional heart attack from occurring. This medicine may be used for other purposes; ask your health care provider or pharmacist if you have questions. COMMON BRAND NAME(S): Delmispressor What should I tell my health care provider before I take this medicine? They need to know if you have any of these conditions: -diabetes -heart or vessel disease like slow heart rate, worsening heart failure, heart block, sick sinus syndrome or Raynaud's disease -kidney disease -liver disease -lung or breathing disease, like asthma or emphysema -pheochromocytoma -thyroid disease -an unusual or allergic reaction to metoprolol, other beta-blockers, medicines, foods, dyes, or preservatives - or trying to get -breast-feeding How should I use this medicine? Take this medicine by mouth with a drink of water. Follow the directions on the prescription label.Take this medicine immediately after meals. Take your doses at regular intervals. Do not take more medicine than directed. Do not stop taking this medicine suddenly. This could lead to serious heart-related effects. Talk to your baggage porter regarding the use of this medicine in children. Special care may be needed. Overdosage: If you think you have taken [...] Do not take double or extra doses. What may interact with this medicine? This medicine may interact with the following medications: -certain medicines for blood pressure, heart disease, irregular heart beat -certain medicines for depression like monoamine oxidase (MAO) inhibitors, fluoxetine, or paroxetine -clonidine -dobutamine -epinephrine -isoproterenol -reserpine This list may not describe all possible interactions. Give your health care provider a list of all the medicines, herbs, non-prescription drugs, or dietary supplements you use. Also tell them if you smoke, drink alcohol, or use illegal drugs. Some items may interact with your medicine. What should I watch for while using this medicine? Visit your doctor or health child care aide for regular check ups. Contact your doctor right awayif your symptoms worsen. Check your blood pressure and pulse rate regularly. Ask your health child care aide what your blood pressure and pulse rate should be, and when you should contact them. You may get drowsy or dizzy. Do not drive, use machinery, or do anything that needs mental alertness until you know how this medicine affects you. Do not sit or stand up quickly, especially if you are an older patient. This reduces the risk of dizzy or fainting spells. Contact your doctor if these symptoms continue. Alcohol may interfere with the effect of this medicine. Avoid alcoholic drinks. What side effects may I notice from receiving this medicine? Side effects that you should report to your doctor or health child care aide as soon as possible: -allergic reactions like skin rash, itching or hives -cold or numb hands or feet -depression -difficulty breathing -faint -fever with sore throat -irregular heartbeat, chest pain -rapid weight gain -swollen legs or ankles Side effects that usually do not require medical attention (report to your doctor or health child care aide if they continue or are bothersome): -anxiety or nervousness -change in sex drive or performance -dry skin -headache -nightmares or trouble sleeping -short term memory loss -stomach upset or diarrhea -unusually tired This list may not describe all possible side effects. Call your doctor for medical advice about side effects. You may report side effects to FDA at 3-144-NMF-0151. Where should I keep my medicine? Keep out of the reach of children. Store at room temperature between 15 and 30 degrees C (59 and 86 degrees F). Throw away any unused medicine after the expiration date. NOTE: This sheet is a summary. It may not cover all possible information. If you have questions about this medicine, talk to your doctor, pharmacist, or health care provider. ?? 2015, Elsevier/Gold Standard. (2013-10-27 14:40:36) Lisinopril tablets What is this medicine? LISINOPRIL (lyse IN oh pril) is an ARABELLA inhibitor. This medicine is used to treat high blood pressure and heart failure. It is also used to protect the heart immediately after a heart attack. This medicine may be used for other purposes; ask your health care provider or pharmacist if you have questions. COMMON BRAND NAME(S): Prinivil, Zestril What should I tell my health care provider before I take this medicine? They need to know if you have any of these conditions: -diabetes -heart or blood vessel disease -immune system disease like lupus or scleroderma -kidney disease -low blood pressure -previous swelling of the tongue, face, or lips with difficulty breathing, difficulty swallowing, hoarseness, or tightening of the throat -an unusual or allergic reaction to lisinopril, other ARABELLA inhibitors, insect venom, foods, dyes, orpreservatives - or trying to get -breast-feeding How should I use this medicine? Take this medicine by mouth with a glass of water. Follow the directions on your prescription label. You may take this medicine with or without food. Take your medicine at regular intervals. Do not stop taking this medicine except on the advice of your doctor or health child care aide. Talk to your baggage porter regarding the use of this medicine in children. Special care may be needed. While this drug may be prescribed for children as young as 6 years of age for selected conditions, precautions do apply. Overdosage: [...] Do not take double or extra doses. What may interact with this medicine? -diuretics -lithium -NSAIDs, medicines for pain and inflammation, like ibuprofen or naproxen -[id number]-sdp-yztfeun herbal supplements like hawthorn -potassium salts or potassium supplements -salt substitutes This list may not describe all possible interactions. Give your health care provider a list of all the medicines, herbs, non-prescription drugs, or dietary supplements you use. Also tell them if you smoke, drink alcohol, or use illegal drugs. Some items may interact with your medicine. What should I watch for while using this medicine? Visit your doctor or health child care aide for regular check ups. Check your blood pressure as directed. Ask your doctor what your blood pressure should be, and when you should contact him or her.Call your doctor or health child care aide if you notice an irregular or fast heart beat. Women should inform their doctor if they wish to become or think they might be . There is a potential for serious side effects to an unborn child. Talk to your health child care aide or pharmacist for more information. Check with your doctor or health child care aide if you get an attack of severe diarrhea, nausea and vomiting, or if you sweat a lot. The loss of too much body fluid can make it dangerous for you to take this medicine. You may get drowsy or dizzy. Do not drive, use machinery, or do anything that needs mental alertness until you know how this drug affects you. Do not stand or sit up quickly, especially if you are anolder patient. This reduces the risk of dizzy or fainting spells. Alcohol can make you more drowsy and dizzy. Avoid alcoholic drinks. Avoid salt substitutes unless you are told otherwise by your doctor or health child care aide. Do not treat yourself for coughs, colds, or pain while you are taking this medicine without asking your doctor or health child care aide for advice. Some ingredients may increase your blood pressure. What side effects may I notice from receiving this medicine? Side effects that you should report to your doctor or health child care aide as soon as possible: -abdominal pain with or without nausea or vomiting -allergic reactions like skin rash or hives, swelling of the hands, feet, face, lips, throat, or tongue -dark urine -difficulty breathing -dizzy, lightheaded or fainting spell -fever or sore throat -irregular heart beat, chest pain -pain or difficulty passing urine -redness, blistering, peeling or loosening of the skin, including inside the mouth -unusually weak -yellowing of the eyes or skin Side effects that usually do not require medical attention (report to your doctor or health child care aide if they continue or are bothersome): -change in taste -cough -decreased sexual function or desire -headache -sun sensitivity -tiredness This list may not describe all possible side effects. Call your doctor for medical advice about side effects. You may report side effects to FDA at 4-223-ARX-3938. Where should I keep my medicine? Keep out of the reach of children. Store at room temperature between 15 and 30 degrees C (59 and 86 degrees F). Protect from moisture.Keep container tightly closed. Throw away any unused medicine after the expiration date. NOTE: This sheet is a summary. It may not cover all possible information. If you have questions about this medicine, talk to your doctor, pharmacist, or health care provider. ?? 2015, Elsevier/Gold Standard. (2008-08-27 17:36:32) Acetaminophen; Hydrocodone tablets or capsules What is this medicine? ACETAMINOPHEN; HYDROCODONE (a set a MATTHEW alan fen; alia droe KOE done) is a pain reliever. It is used to treat mild to moderate pain. This medicine may be used for other purposes; ask your health care provider or pharmacist if you have questions. COMMON BRAND NAME(S): Anexsia, Bancap HC, Ceta-Plus, Co-Gesic, Comfortpak, Dolagesic, Dolorex Forte, DuoCet, Hydrocet, Hydrogesic, Lorcet, Lorcet HD, Lorcet Plus, Lortab, Margesic H, Maxidone, Latonia,Polygesic, Stagesic, Vanacet, Verdrocet, Vicodin, Vicodin ES, Vicodin HP, Xodol, Zydone What should I tell my health care provider before I take this medicine? They need to know if you have any of these conditions: -brain tumor -Crohn's disease, inflammatory bowel disease, or ulcerative colitis -drug abuse or addiction -head injury -heart or circulation problems -if you often drink alcohol -kidney disease or problems going to the bathroom -liver disease -lung disease, asthma, or breathing problems -an unusual or allergic reaction to acetaminophen, hydrocodone, other opioid analgesics, other medicines, foods, dyes, or preservatives - or trying to get -breast-feeding How should I use this medicine? Take this medicine by mouth. Swallow it with a full glass of water. Follow the directions on the prescription label. If the medicine upsets your stomach, take the medicine with food or milk. Do not take more than you are told to take. Talk to your baggage porter regarding the use of this medicine in children. This medicine is not approved for use in children. Overdosage: If you think you have taken [...] Do not take double or extra doses. What may interact with this medicine? -alcohol -antihistamines -isoniazid -medicines for depression, anxiety, or psychotic disturbances -medicines for sleep -muscle relaxants -naltrexone -narcotic medicines (opiates) for pain -phenobarbital -ritonavir -tramadol This list may not describe all possible interactions. Give your health care provider a list of all the medicines, herbs, non-prescription drugs, or dietary supplements you use. Also tell them if you smoke, drink alcohol, or use illegal drugs. Some items may interact with your medicine. What should I watch for while using this medicine? Tell your doctor or health child care aide if your pain does not go away, if it gets worse, or ifyou have new or a different type of pain. You may develop tolerance to the medicine. Tolerance means that you will need a higher dose of the medicine for pain relief. Tolerance is normal and is expected if you take the medicine for a long time. Do not suddenly stop taking your medicine because you may develop a severe reaction. Your body becomes used to the medicine. This does NOT mean you are addicted. Addiction is a behavior related to getting and using a drug for a non- medical reason. If you have pain, you have a medical reason to takepain medicine. Your doctor will tell you how much medicine to take. If your doctor wants you to stop the medicine, the dose will be slowly lowered over time to avoid any side effects. You may get drowsy or dizzy when you first start taking the medicine or change doses. Do not drive,use machinery, or do anything that may be dangerous until you know how the medicine affects you. Stand or sit up slowly. There are different types of narcotic medicines (opiates) for pain. If you take more than one type at the same time, you may have more side effects. Give your health care provider a list of all medicines you use. Your doctor will tell you how much medicine to take. Do not take more medicine than directed. Call emergency for help if you have problems breathing. The medicine will cause constipation. Try to have a bowel movement at least every 2 to 3 days. If you do not have a bowel movement for 3 days, call your doctor or health child care aide. Too much acetaminophen can be very dangerous. Do not take Tylenol (acetaminophen) or medicines thatcontain acetaminophen with this medicine. Many non-prescription medicines contain acetaminophen. Always read the labels carefully. What side effects may I notice from receiving this medicine? Side effects that you should report to your doctor or health child care aide as soon as possible: -allergic reactions like skin rash, itching or hives, swelling of the face, lips, or tongue -breathing problems -confusion -feeling faint or lightheaded, falls -stomach pain -yellowing of the eyes or skin Side effects that usually do not require medical attention (report to your doctor or health child care aide if they continue or are bothersome): -nausea, vomiting -stomach upset This list may not describe all possible side effects. Call your doctor for medical advice about side effects. You may report side effects to FDA at 7-010-QCQ-2741. Where should I keep my medicine? Keep out of the reach of children. This medicine can be abused. Keep your medicine in a safe place to protect it from theft. Do not share this medicine with anyone. Selling or giving away this medicine is dangerous and against the law. Store at room temperature between 15 and 30 degrees C (59 and 86 degrees F). Protect from light. Keep container tightly closed. Throw away any unused medicine after the expiration date. Discard unused medicine and used packaging carefully. Pets and children can be harmed if they find used or lost packages. NOTE: This sheet is a summary. It may not cover all possible information. If you have questions about this medicine, talk to your doctor, pharmacist, or health care provider. ?? 2015, Elsevier/Gold Standard. (2013-10-16 13:15:56) Aspirin, ASA oral tablets What is this medicine? ASPIRIN ( pir in) is a pain reliever. It is used to treat mild pain and fever. This medicine is also used as directed by a doctor to prevent and to treat heart attacks, to prevent strokes, and to treat arthritis or inflammation. This medicine may be used for other purposes; ask your health care provider or pharmacist if you have questions. COMMON BRAND NAME(S): Aspir-Low, Aspir-Kaycee, Aspirtab, Dain Advanced Aspirin, Dain Aspirin, BayerAspirin Extra Strength, Dain Aspirin Plus, Dain Extra Strength, Dain Extra Strength Plus, Dain Genuine Aspirin, Dain Womens Aspirin, Bufferin, Bufferin Extra Strength, Bufferin Low Dose What should I tell my health care provider before I take this medicine? They need to know if you have any of these conditions: -anemia -asthma -bleeding problems -child with chickenpox, the flu, or other viral infection -diabetes -gout -if you frequently drink alcohol containing drinks -kidney disease -liver disease -low level of vitamin K -lupus -smoke tobacco -stomach ulcers or other problems -an unusual or allergic reaction to aspirin, tartrazine dye, other medicines, dyes, or preservatives - or trying to get -breast-feeding How should I use this medicine? Take this medicine by mouth with a glass of water. Follow the directions on the package or prescription label. You can take this medicine with or without food. If it upsets your stomach, take it withfood. Do not take your medicine more often than directed. Talk to your baggage porter regarding the use of this medicine in children. While this drug may be prescribed for children as young as 12 years of age for selected conditions, precautions do apply. Children and teenagers should not use this medicine to treat chicken pox or flu symptoms unless directed by a doctor. Patients over 65 years old may have a stronger reaction and need a smaller dose. Overdosage: If you think you have taken too much of this medicine contact a poison control center or emergency room at once. NOTE: This medicine is only for you. Do not share this medicine with others. What if I miss a dose? If you are taking this medicine on a regular schedule and miss a dose, take it as soon as you can. If it is almost time for your next dose, take only that dose. Do not take double or extra doses. What may interact with this medicine? Do not take this medicine with any of the following medications: -cidofovir -ketorolac -probenecid This medicine may also interact with the following medications: -alcohol -alendronate -bismuth subsalicylate -flavocoxid -herbal supplements like feverfew, garlic, parish, ginkgo biloba, horse chestnut -medicines for diabetes or glaucoma like acetazolamide, methazolamide -medicines for gout -medicines that treat or prevent blood clots like enoxaparin, heparin, ticlopidine, warfarin -other aspirin and aspirin-like medicines -NSAIDs, medicines for pain and inflammation, like ibuprofen or naproxen -pemetrexed -sulfinpyrazone -varicella live vaccine This list may not describe all possible interactions. Give your health care provider a list of all the medicines, herbs, non-prescription drugs, or dietary supplements you use. Also tell them if you smoke, drink alcohol, or use illegal drugs. Some items may interact with your medicine. What should I watch for while using this medicine? If you are treating yourself for pain, tell your doctor or health child care aide if the pain lasts more than 10 days, if it gets worse, or if there is a new or different kind of pain. Tell your doctor if you see redness or swelling. Also, check with your doctor if you have a fever that lasts formore than 3 days. Only take this medicine to prevent heart attacks or blood clotting if prescribed by your doctor or health child care aide. Do not take aspirin or aspirin-like medicines with this medicine. Too much aspirin can be dangerous. Always read the labels carefully. This medicine can irritate your stomach or cause bleeding problems. Do not smoke cigarettes or drink alcohol while taking this medicine. Do not lie down for 30 minutes after taking this medicine to prevent irritation to your throat. If you are scheduled for any medical or dental procedure, tell your healthcare provider that you are taking this medicine. You may need to stop taking this medicine before the procedure. This medicine may be used to treat migraines. If you take migraine medicines for 10 or more days a month, your migraines may get worse. Keep a diary of headache days and medicine use. Contact your healthcare professional if your migraine attacks occur more frequently. What side effects may I notice from receiving this medicine? Side effects that you should report to your doctor or health child care aide as soon as possible: -allergic reactions like skin rash, itching or hives, swelling of the face, lips, or tongue -breathing problems -changes in hearing, ringing in the ears -confusion -general ill feeling or flu-like symptoms -pain on swallowing -redness, blistering, peeling or loosening of the skin, including inside the mouth or nose -signs and symptoms of bleeding such as bloody or black, tarry stools; red or dark-brown urine; spitting up blood or brown material that looks like coffee grounds; red spots on the skin; unusual bruising or bleeding from the eye, gums, or nose -trouble passing urine or change in the amount of urine -unusually weak or tired -yellowing of the eyes or skin Side effects that usually do not require medical attention (report to your doctor or health child care aide if they continue or are bothersome): -diarrhea or constipation -headache -nausea, vomiting -stomach gas, heartburn This list may not describe all possible side effects. Call your doctor for medical advice about side effects. You may report side effects to FDA at 9-279-WDG-3534. Where should I keep my medicine? Keep out of the reach of children. Store at room temperature between 15 and 30 degrees C (59 and 86 degrees F). Protect from heat and moisture. Do not use this medicine if it has a strong vinegar smell. Throw away any unused medicine after the expiration date. NOTE: This sheet is a summary. It may not cover all possible information. If you have questions about this medicine, talk to your doctor, pharmacist, or health care provider. ?? 2015, Elsevier/Gold Standard. (2013-10-24 11:30:31) Amlodipine tablets What is this medicine? AMLODIPINE (am PRINCESS di perona) is a calcium-channel laquita. It affects the amount of calcium found inyour heart and muscle cells. This relaxes your blood vessels, which can reduce the amount of work the heart has to do. This medicine is used to lower high blood pressure. It is also used to prevent chest pain. This medicine may be used for other purposes; ask your health care provider or pharmacist if you have questions. COMMON BRAND NAME(S): Candelaria What should I tell my health care provider before I take this medicine? They need to know if you have any of these conditions: -heart problems like heart failure or aortic stenosis -liver disease -an unusual or allergic reaction to amlodipine, other medicines, foods, dyes, or preservatives - or trying to get -breast-feeding How should I use this medicine? Take this medicine by mouth with a glass of water. Follow the directions on the prescription label.Take your medicine at regular intervals. Do not take more medicine than directed. Talk to your baggage porter regarding the use of this medicine in children. Special care may be needed. This medicine has been used in children as young as 6. Persons over 65 years old may have a stronger reaction to this medicine and need smaller doses. Overdosage: If you think you have taken [...] Do not take double or extra doses. What may interact with this medicine? -herbal or dietary supplements -local or general anesthetics -medicines for high blood pressure -medicines for prostate problems -rifampin This list may not describe all possible interactions. Give your health care provider a list of all the medicines, herbs, non-prescription drugs, or dietary supplements you use. Also tell them if you smoke, drink alcohol, or use illegal drugs. Some items may interact with your medicine. What should I watch for while using this medicine? Visit your doctor or health child care aide for regular check ups. Check your blood pressure and pulse rate regularly. Ask your health child care aide what your blood pressure and pulse rate should be, and when you should contact him or her. This medicine may make you feel confused, dizzy or lightheaded. Do not drive, use machinery, or do anything that needs mental alertness until you know how this medicine affects you. To reduce the risk of dizzy or fainting spells, do not sit or stand up quickly, especially if you are an older patient. Avoid alcoholic drinks; they can make you more dizzy. Do not suddenly stop taking amlodipine. Ask your doctor or health child care aide how you can gradually reduce the dose. What side effects may I notice from receiving this medicine? Side effects that you should report to your doctor or health child care aide as soon as possible: -allergic reactions like skin rash, itching or hives, swelling of the face, lips, or tongue -breathing problems -changes in vision or hearing -chest pain -fast, irregular heartbeat -swelling of legs or ankles Side effects that usually do not require medical attention (report to your doctor or health child care aide if they continue or are bothersome): -dry mouth -facial flushing -nausea, vomiting -stomach gas, pain -tired, weak -trouble sleeping This list may not describe all possible side effects. Call your doctor for medical advice about side effects. You may report side effects to FDA at 3-478-GHM-1006. Where should I keep my medicine? Keep out of the reach of children. Store at room temperature between 59 and 86 degrees F (15 and 30 degrees C). Protect from light. Keep container tightly closed. Throw away any unused medicine after the expiration date. NOTE: This sheet is a summary. It may not cover all possible information. If you have questions about this medicine, talk to your doctor, pharmacist, or health care provider. ?? 2015, Elsevier/Gold Standard. (2013-01-20 11:40:58) Amitriptyline tablets What is this medicine? AMITRIPTYLINE (a matthew TRIP ti cassandra) is used to treat depression. This medicine may be used for other purposes; ask your health care provider or pharmacist if you have questions. COMMON BRAND NAME(S): Jayde Sparrow What should I tell my health care provider before I take this medicine? They need to know if you have any of these conditions: -an alcohol problem -asthma, difficulty breathing -bipolar disorder or schizophrenia -difficulty passing urine, prostate trouble -glaucoma -heart disease or previous heart attack -liver disease -over active thyroid -seizures -thoughts or plans of suicide, a previous suicide attempt, or family history of suicide attempt -an unusual or allergic reaction to amitriptyline, other medicines, foods, dyes, or preservatives - or trying to get -breast-feeding How should I use this medicine? Take this medicine by mouth with a drink of water. Follow the directions on the prescription label.You can take the tablets with or without food. Take your medicine at regular intervals. Do not takeit more often than directed. Do not stop taking this medicine suddenly except upon the advice of your doctor. Stopping this medicine too quickly may cause serious side effects or your condition may worsen. A special MedGuide will be given to you by the pharmacist with each prescription and refill. Be sure to read this information carefully each time. Talk to your baggage porter regarding the use of this medicine in children. Special care may be needed. Overdosage: If you think you have taken [...] Do not take double or extra doses. What may interact with this medicine? Do not take this medicine with any of the following medications: -arsenic trioxide -certain medicines used to regulate abnormal heartbeat or to treat other heart conditions -cisapride -droperidol -halofantrine -linezolid -MAOIs like Carbex, Eldepryl, Marplan, Nardil, and Parnate -methylene blue -other medicines for mental depression -phenothiazines like perphenazine, thioridazine and chlorpromazine -pimozide -probucol -procarbazine -sparfloxacin -Kindred's Wort -ziprasidone This medicine may also interact with the following medications: -atropine and related drugs like hyoscyamine, scopolamine, tolterodine and others -barbiturate medicines for inducing sleep or treating seizures, like phenobarbital -cimetidine -disulfiram -ethchlorvynol -thyroid hormones such as levothyroxine This list may not describe all possible interactions. Give your health care provider a list of all the medicines, herbs, non-prescription drugs, or dietary supplements you use. Also tell them if you smoke, drink alcohol, or use illegal drugs. Some items may interact with your medicine. What should I watch for while using this medicine? Tell your doctor if your symptoms do not get better or if they get worse. Visit your doctor or health child care aide for regular checks on your progress. Because it may take several weeks to see the full effects of this medicine, it is important to continue your treatment as prescribed by your doctor. Patients and their families should watch out for new or worsening thoughts of suicide or depression. Also watch out for sudden changes in feelings such as feeling anxious, agitated, panicky, irritable, hostile, aggressive, impulsive, severely restless, overly excited and hyperactive, or not being able to sleep. If this happens, especially at the beginning of treatment or after a change in dose, call your health child care aide. You may get drowsy or dizzy. Do not drive, use machinery, or do anything that needs mental alertness until you know how this medicine affects you. Do not stand or sit up quickly, especially if you are an older patient. This reduces the risk of dizzy or fainting spells. Alcohol may interfere with the effect of this medicine. Avoid alcoholic drinks. Do not treat yourself for coughs, colds, or allergies without asking your doctor or health child care aide for advice. Some ingredients can increase possible side effects. Your mouth may get dry. Chewing sugarless gum or sucking hard candy, and drinking plenty of water will help. Contact your doctor if the problem does not go away or is severe. This medicine may cause dry eyes and blurred vision. If you wear contact lenses you may feel some discomfort. Lubricating drops may help. See your eye doctor if the problem does not go away or is severe. This medicine can cause constipation. Try to have a bowel movement at least every 2 to 3 days. If you do not have a bowel movement for 3 days, call your doctor or health child care aide. This medicine can make you more sensitive to the sun. Keep out of the sun. If you cannot avoid being in the sun, wear protective clothing and use sunscreen. Do not use sun lamps or tanning beds/booths. What side effects may I notice from receiving this medicine? Side effects that you should report to your doctor or health child care aide as soon as possible: -allergic reactions like skin rash, itching or hives, swelling of the face, lips, or tongue -abnormal production of milk in females -breast enlargement in both males and females -breathing problems -confusion, hallucinations -fast, irregular heartbeat -fever with increased sweating -muscle stiffness, or spasms -pain or difficulty passing urine, loss of bladder control -seizures -suicidal thoughts or other mood changes -swelling of the testicles -tingling, pain, or numbness in the feet or hands -yellowing of the eyes or skin Side effects that usually do not require medical attention (report to your doctor or health child care aide if they continue or are bothersome): -change in sex drive or performance -constipation or diarrhea -nausea, vomiting -weight gain or loss This list may not describe all possible side effects. Call your doctor for medical advice about side effects. You may report side effects to FDA at 1-930-SEE-8443. Where should I keep my medicine? Keep out of the reach of children. Store at room temperature between 20 and 25 degrees C (68 and 77 degrees F). Throw away any unused medicine after the expiration date. NOTE: This sheet is a summary. It may not cover all possible information. If you have questions about this medicine, talk to your doctor, pharmacist, or health care provider. ?? 2015, Elsevier/Gold Standard. (2012-07-11 13:50:32) documented in this encounter Medications at Time of Discharge amitriptyline (ELAVIL) 25 mg Oral Tablet Take 1 Tab by mouth nightly for 30 days. 30 Tab 0 10/22/2014 11/21/2014 amLODIPine (NORVASC) 10 mg Oral Tablet Take 1 Tab by mouth daily for 30 days. 30 Tab 0 10/22/2014 11/21/2014 ARIPiprazole (ABILIFY) 2 mg Oral Tablet Take 1 Tab by mouth daily for 30 days. 30 Tab 0 10/22/2014 11/21/2014 aspirin 81 mg Oral Tablet, Chewable Take 1 Tab by mouth daily for 30 days. 30 Tab 0 10/22/2014 11/21/2014 lisinopril (PRINIVIL;ZESTRIL ) 40 mg Oral Tablet Take 1 Tab by mouth daily for 30 days. 30 Tab 0 10/22/2014 11/21/2014 metoprolol (LOPRESSOR) 25 mg Oral Tablet Take 1 Tab by mouth 2 times daily for 30 days. 60 Tab 0 10/22/2014 11/21/2014 venlafaxine (EFFEXOR-XR) 150 mg Oral Capsule, Sust. Release 24 hr Take 1 Cap by mouth daily for 30 days. 30 Cap 0 10/22/2014 11/21/2014 documented as of this encounter Ordered Prescriptions Prescription Sig Dispense Quantity Refills Last Filled Start Date End Date metoprolol (LOPRESSOR) 25 mg Oral Tablet Take 1 Tab by mouth 2 times daily for 30 days. 60 Tab 0 10/22/2014 5 venlafaxine (EFFEXOR-XR) 150 mg Oral Capsule, Sust. Release 24 hr Take 1 Cap by mouth daily for 30 days. 30 Cap 0 10/22/2014 5 amitriptyline (ELAVIL) 25 mg Oral Tablet Take 1 Tab by mouth nightly for 30 days. 30 Tab 0 10/22/2014 5 ARIPiprazole (ABILIFY) 2 mg Oral Tablet Take 1 Tab by mouth daily for 30 days. 30 Tab 0 10/22/2014 5 lisinopril (PRINIVIL;ZESTRIL) 40 mg Oral Tablet Take 1 Tab by mouth daily for 30 days. 30 Tab 0 10/22/2014 5 amLODIPine (NORVASC) 10 mg Oral Tablet Take 1 Tab by mouth daily for 30 days. 30 Tab 0 10/22/2014 5 HYDROcodone-acetam inophen (NORCO) 5-325 mg Oral Tablet Take 1 Tab by mouth every 6 hours as needed for Pain. 12 Tab 0 10/22/2014 6 aspirin 81 mg Oral Tablet, Chewable Take 1 Tab by mouth daily for 30 days. 30 Tab 0 10/22/2014 5 documented in this encounter Discharge Disposition Disposition Code Departure Means Destination Nursing Facility [facility] or documented in this encounter Progress Notes * Toma Beebe RN - 10/22/2014 3:04 PM EDT Gave report to Pamela at [facility]. RX and discharge instructions given to pt and also faxed to [facility]. * Marcos Pepe MSW - 10/22/2014 2:48 PM EDT 10/22 Final Note- Patient discharging to [facility], AVS faxed, patient transported via cab with voucher. Patient in agreement with plan. * Toma Beebe RN - 10/22/2014 2:47 PM EDT Discharge instructions given to pt, verbalized understanding. Attempted to call report to [facility], spoke with Yecenia. IV and heart monitor removed. No complications. * Jordy Badillo MD - 10/22/2014 12:17 PM EDT Images from the original note were not included. Adult Progress Note Admit Date: 10/18/2014 LOS: 4 days HPI: Faby Palm is a(n)64 y.o. female admitted with Frequent falls and weakness of left leg. Subjective: Seen today, she states feeling well. No acute events noted by nursing. Scheduled Meds: ??? lisinopril 40 mg Oral Daily ??? amLODIPine 10 mg Oral Daily ??? aspirin 81 mg Oral Daily ??? ARIPiprazole 2 mg Oral Daily ??? roPINIRole 0.5 mg Oral Nightly ??? amitriptyline 25 mg Oral Nightly ??? pneumococcal vaccine 0.5 mL Intramuscular ONCE ??? venlafaxine 150 mg Oral Daily ??? miconazole Topical 2 times per day Continuous Infusions: Objective: BP 168/80 mmHg Pulse 101 Temp(Src) 99.3 ??F (37.4 ??C) (Oral) Resp 18 Ht 5' 8.5 (1.74 m) Wt 224 lb (101.606 kg) BMI 33.56 kg/m2 SpO2 97% ? No Patient not in acute distress. Neck supple, no JVD. Lungs CTA. Heart regular S1, S2 are normal. No murmur. Abd soft, NT, ND, bowel sounds are present. Ext unilateral edema of the left leg. No calf tenderness Neuro AAO X3. Left lower extremity weakness. Labs: CBC: Lab Results Component Value Date WBC 8.4 10/18/2014 RBC 4.66 10/18/2014 HGB 13.0 10/18/2014 HCT 40.4 10/18/2014 MCV 86.7 10/18/2014 MCHC 32.2 10/18/2014 PLT 143* 10/18/2014 BMP: Lab Results Component Value Date NA 140 10/18/2014 K 3.8 10/18/2014 CL 104 10/18/2014 CO2 24 10/18/2014 BUN 14 10/18/2014 CREATININE 0.91 10/18/2014 CALCIUM 9.2 10/18/2014 GLU 90 10/18/2014 Coagulation: No results found for: INR, APTT Accucheck Results: Radiology results: Scanned Rhythm Strips 10/22/2014 Ordered by an unspecified provider. Assessment: 1.Left lower extremity weakness: Likely from peripheral neuropathy. There is no evidence of acute CVA. -Continue supportive care. -Neurology input for EMG noted. Will be done as outpatient. -Neurosurgery input appreciated. -Continue PT 2. Depression. On Abilify, Elavil and Effexor. 3. Hypertension. Poorly controlled. -Lisinopril increased to 40 mg daily and Norvasc 10 mg daily. -Add metoprolol 25 mg BID 4. History of CVA with residual left hemiparesis. -Continue supportive care. -ASA 81 mg daily. 5. Disposition. Patient is medically stable for discharge. She will need an EMG done as outpatient. Jordy Badillo MD * Payton Melton OT - 10/22/2014 11:44 AM EDT 10/22/14 0935 OT Subjective Patient Room/Unit 3611 OT Subjective Comments #1 Pt c/o having dirty hair and needing depends. Precautions Precaution info given Yes;To use call light to request assistance with all mobililty Cognition Overall Cognitive Status Impaired Receptive Pt is not very attentive to details, such as whether she had thoroughly cleaned her teeth, etc. Expressive Pt is able to express her needs. Arousal/Alertness Appropriate responses to stimuli Attention Span Appears intact Pain Screening PT/OT Patient Currently in Pain No Observation Presentation Patient resting in bed Observation IV;Enforcement Officer Transfers Sit to Stand Independent;Supervision Stand to Sit Independent;Supervision Bed to Chair Independent;Supervision Functional Transfers Toilet Transfers Independent;Supervision Current Level of Function Where Assessed Chair;Standing at sink Grooming Assistance Stand by (Needs cues for thoroughness.) LE Dressing Assistance Supervision Toileting Supervision Hygiene Assistance Partial assist (Decreased thoroughness. ) Additional Comments Suspect that pt is typically not very thorough with ADLs, and benefits from occassional A. Pt stood at sink for OT to A with hair washing (A due to IV in hand). Pt assited with Depends, but she typically wears the pull up style at home. Did well with donning pants. Balance Sitting - Static Good Sitting - Dynamic Good Standing - Static Good Standing - Dynamic Good minus Interventions Balance Training Pt tolerated standing for 5 minutes for ADLs at sink. Assessment Progress Slow progress, cognitive deficits Rationale for Skilled Therapy Fall Risk;Balance Deficits;Needs verbal/tactile cues for ADL's;Needs physical cues for ADL's Additional Comments Cont with goals Plan Treatment Interventions ADL retraining;Functional transfer training;Endurance training;Cognitive reorientation;Patient/Family training;Equipment eval/education;Neuro muscular reeducation;Compensatorytechnique education Recommendation OT Recommendation 24 hour supervision/assist;Home with prior support (May benefit from increased support with ADLs) Time In / Time Out [id number] IP OT Individual Treatment Minutes 38 * Marcos Pepe MSW - 10/22/2014 11:42 AM EDT 10/22 SW- [facility] for quotes to [place]; [facility] $230.00, [employer] $210.00. Patient will travel via [employer]; ok with MD to [facility]. Will send AVS via [employer] when available. SW to follow. * Marcos Pepe MSW - 10/22/2014 10:09 AM EDT 10/22 SW- Contacted Breana at [facility], able to accept patient and patient agreeable to plan. Sent updated pre-transfer packet via [employer]. SW to follow. * Nighat Jules, PT - 10/21/2014 6:35 PM EDT 10/21/14 1718 PT Subjective Patient Room/Unit 3611-PT Treatment PT Subjective Comments #1 Pt in bed, agreeable to treatment. PT Subjective Comments #2 Pt found to incontinent of large amount of strong, malodorous urine in bed Pain Screening PT/OT Patient Currently in Pain Denies Cognition Overall Cognitive Status Impaired Insight Decreased awareness of deficits Problem Solving Assistance required to generate solutions Additional Comments Unconcerned for level of incontinence Precautions Precaution info given Yes;To use call light to request assistance with all mobililty Observation Presentation Patient resting in bed Observation IV;Enforcement Officer Bed Mobility Supine to Sit Modified independent (device) Transfers Sit to Stand Independent Stand to Sit Independent Gait PT Gait Stand by assist Gait Distance (Feet) 158 Feet Assistive Device None Pattern Shuffle;Slow chhaya Additional Comments very slow chhaya with near non-functional stride length. Balance Sitting - Static Good Sitting - Dynamic Good Standing - Static Good Standing - Dynamic Good minus Exercise Exercise No Education Education Patient/Family Education;Role of Therapy;Up with assistance only Patient Safety Patient Safety Patient left in chair with needs in reach Assessment Assessment Decreased gait;Decreased functional mobility;Decreased safety judgement ;Decreased activity tolerance Prognosis Good Progress Improving as expected Rationale for Skilled Therapy Not safe ambulating independently Goals Pt Will Ambulate Met;31-50 feet;With stand by assist;New goal;> 200 feet Plan Treatment/Interventions Continue with current plan of care Recommendation PT Recommendation 24 hour supervision/assist;Home with prior support Time In / Time Out 1705/1718 IP PT Treatment Minutes 13 (gait) * Uriel Mauricio CSW - 10/21/2014 4:15 PM EDT 10/21/14 SW- Met with patient at bedside. She wants placement in [place] at discharge. SW asked patient about returning to [facility] and she does not wish to do this. Patient has notransportation. She reports she was brought here from [facility] and wasn't aware that she was coming to this area. She has been at the [facility] since May. Patient prefers [facility] or a facility with [facility] in the name, she wasn't sure the full title. [place] referral was sent for [facility] facilities. SW to follow. * Jordy Badillo MD - 10/21/2014 10:02 AM EDT Images from the original note were not included. Adult Progress Note Admit Date: 10/18/2014 LOS: 3 days HPI: Faby Palm is a(n)64 y.o. female admitted with Frequent falls and weakness of left leg. Subjective: Seen today, she states feeling well. No acute events noted by nursing. Scheduled Meds: ??? lisinopril 40 mg Oral Daily ??? amLODIPine 10 mg Oral Daily ??? aspirin 81 mg Oral Daily ??? ARIPiprazole 2 mg Oral Daily ??? roPINIRole 0.5 mg Oral Nightly ??? amitriptyline 25 mg Oral Nightly ??? pneumococcal vaccine 0.5 mL Intramuscular ONCE ??? venlafaxine 150 mg Oral Daily ??? miconazole Topical 2 times per day Continuous Infusions: Objective: BP 179/92 mmHg Pulse 70 Temp(Src) 98 ??F (36.7 ??C) (Oral) Resp 18 Ht 5' 8.5 (1.74 m) Wt224 lb (101.606 kg) BMI 33.56 kg/m2 SpO2 100% ? No Patient not in acute distress. Neck supple, no JVD. Lungs CTA. Heart regular S1, S2 are normal. No murmur. Abd soft, NT, ND, bowel sounds are present. Ext unilateral edema of the left leg. No calf tenderness Neuro AAO X3. Left lower extremity weakness. Labs: CBC: Lab Results Component Value Date WBC 8.4 10/18/2014 RBC 4.66 10/18/2014 HGB 13.0 10/18/2014 HCT 40.4 10/18/2014 MCV 86.7 10/18/2014 MCHC 32.2 10/18/2014 PLT 143* 10/18/2014 BMP: Lab Results Component Value Date NA 140 10/18/2014 K 3.8 10/18/2014 CL 104 10/18/2014 CO2 24 10/18/2014 BUN 14 10/18/2014 CREATININE 0.91 10/18/2014 CALCIUM 9.2 10/18/2014 GLU 90 10/18/2014 Coagulation: No results found for: INR, APTT Accucheck Results: Radiology results: Scanned Rhythm Strips 10/21/2014 Ordered by an unspecified provider. Assessment: 1.Left lower extremity weakness: Likely from peripheral neuropathy. There is no evidence of acute CVA. -Continue supportive care. -Neurology input for EMG noted. -Neurosurgery input appreciated. -Continue PT 2. Depression. On Abilify, Elavil and Effexor. 3. Hypertension. Poorly controlled. -Lisinopril increased to 40 mg daily and Norvasc 10 mg added. 4. History of CVA with residual left hemiparesis. -Continue supportive care. -ASA 81 mg daily. 5. Disposition. PT recommendations are noted. Social work is arranging placement. Jordy Badillo MD * Uriel Mauricio CSW - 10/20/2014 1:55 PM EDT 10/20/14 SW- APS worker Summer Abbasi ([phone]) met with patient today. Summer asked this worker to assist in finding a retirement or personal assisted for the patient in [place], per patient's request. SW [facility]. Patient's insurance will require a pre-cert which cannot happen until Wednesday. SW attempted to discuss with patient, but she was sleeping soundly and didn't awake to her name. SW will follow up. * Jordy Badillo MD - 10/20/2014 10:46 AM EDT Images from the original note were not included. Adult Progress Note Admit Date: 10/18/2014 LOS: 2 days HPI: Faby Palm is a(n)64 y.o. female admitted for History of CVA (cerebrovascular accident) [V12.54] Frequent falls [V15.88] Weakness of left leg [729.89]. Subjective: Seen today, she states feeling better. No acute events noted by nursing. Scheduled Meds: ??? lisinopril 40 mg Oral Daily ??? amLODIPine 10 mg Oral Daily ??? hydrALAZINE 5 mg Intravenous Once ??? ARIPiprazole 2 mg Oral Daily ??? roPINIRole 0.5 mg Oral Nightly ??? amitriptyline 25 mg Oral Nightly ??? pneumococcal vaccine 0.5 mL Intramuscular ONCE ??? venlafaxine 150 mg Oral Daily ??? miconazole Topical 2 times per day Continuous Infusions: Objective: BP 171/76 mmHg Pulse 73 Temp(Src) 97.6 ??F (36.4 ??C) (Oral) Resp 20 Ht 5' 8.5 (1.74 m) Wt 224 lb (101.606 kg) BMI 33.56 kg/m2 SpO2 100% ? No Patient not in acute distress. Neck supple, no JVD. Lungs CTA. Heart regular S1, S2 are normal. No murmur. Abd soft, NT, ND, bowel sounds are present. Ext unilateral edema of the left leg. No calf tenderness Neuro AAO X3. Left lower extremity weakness. Labs: CBC: Lab Results Component Value Date WBC 8.4 10/18/2014 RBC 4.66 10/18/2014 HGB 13.0 10/18/2014 HCT 40.4 10/18/2014 MCV 86.7 10/18/2014 MCHC 32.2 10/18/2014 PLT 143* 10/18/2014 BMP: Lab Results Component Value Date NA 140 10/18/2014 K 3.8 10/18/2014 CL 104 10/18/2014 CO2 24 10/18/2014 BUN 14 10/18/2014 CREATININE 0.91 10/18/2014 CALCIUM 9.2 10/18/2014 GLU 90 10/18/2014 Coagulation: No results found for: INR, APTT Accucheck Results: Radiology results: Mri Lumbar Spine Wo Contrast 10/19/2014 MRI LUMBAR SPINE WITHOUT CONTRAST: 10/19/2014 COMPARISON: None. INDICATION: 64-year-old with left leg swelling and weakness. Falling over past couple of months. TECHNICAL FACTORS: Sagittal and axial T1 and T2 and sagittal STIR sequences obtained without contrast on 1.5 Angela magnet. FINDINGS: Lumbar lordosis is mildly exaggerated. There is less than 2 mm anterolisthesis of L3 with respect to L4. Alignment and vertebral height otherwise normal. L4-L5 disc space is most narrowed; moderate in degree. It has left side dominant sub endplate degenerative marrow and irregular endplates withtiny sub-endplate cystic changes. L3-L4 disc space is mildly narrowed. No acute marrow edema. Conusis normal in signal and configuration. Its tip ends lower L1 level. T12-L1 through L2-L3 discs haveminimal diffuse disc bulge. Central canal and neural foramen are patent. L3-L4 mild to moderate diffuse disc bulge. Mild central canal narrowing. Ligamentum flavum and facet joints are hypertrophic. Moderate right and mild left neural foraminal stenosis. At L4-L5, there is mild to moderate diffuse disc bulge with asymmetric broad-based left foraminal prominence. Additional mild left greater than right facet and ligamentum flavum hypertrophy contribute to asymmetric left lateral recess narrowingand moderate left neural foraminal stenosis. Ventral thecal sac is minimally concave. Mild left central canal narrowing. Right neural foramen is mildly narrowed. At L5-S1, there is minimal diffuse disc bulge. Central canal and neural foramen are patent. Moderate bilateral facet hypertrophy, including fluid within joint spaces, especially on the left. 10/19/2014 IMPRESSION: 1. Moderate degenerative disc and facet disease at L4-L5 with left side dominance, resulting in mild left central canal narrowing, left lateral recess narrowing and moderate left neural foraminal stenosis. 2. Mild to moderate diffuse disc bulge L3-L4 with moderate right and mild left neural foraminal narrowing. Mild central canal stenosis. 3. Bilateral L5-S1 moderate facet arthropathy. Va Us Lower Extremity Venous Bilateral 10/19/2014 CONCLUSIONS No evidence of deep vein thrombosis identified in the bilateral lower extremities. No evidence of superficial vein thrombosis identified in the bilateral lower extremities. Mayo Beard MD Scanned Rhythm Strips 10/20/2014 Ordered by an unspecified provider. Assessment: 1.Left lower extremity weakness: Likely from peripheral neuropathy. There is no evidence of acute CVA. -Continue supportive care -Neurology input for EMG noted. -Will consult neurosurgery to evaluate for radiculopathy given MRI findings. 2. Depression. On Abilify, Elavil and Effexor. 3. Hypertension. Poorly controlled. -Lisinopril increased to 40 mg daily and Norvasc 10 mg added. 4. History of CVA with residual left hemiparesis. -Continue supportive care. -ASA 81 mg daily. -Check lipid profile. 5. Disposition. PT recommendations are noted. Social work is arranging placement. > 25 minutes spent Jordy Badillo MD * Valeri Tobar RN - 10/20/2014 10:45 AM EDT Per ok to Hold IV blood pressure medication at this time due to loss of IV access * Payton Melton OT - 10/19/2014 5:28 PM EDT 10/19/14 1305 OT Subjective Patient Room/Unit 3611 OT Subjective Comments #1 Pt agreeable to tx. Discharge Information Evaluation to serve as discharge summary if no further treatment provided before the facility discharge Admitting Diagnosis H/o CVA, frequent falls, weakness left leg. Pt was admitted via ED 10/18/2014 with left sided numbness and tingling left foot. Past Med Hx COPD, DDD, CHF, DM, HTN, yeast infection (recurrent), suicide attempt, stroke, restlessleg syndrome, lung surgery, breast surgery, left TKA, left ankle fracture surgery. Diagnostic Testing 10/18/2014 left hip xray: no significant osseous, joint or soft tissue abnormality seen. 10/18/2014 CT head: Chronic ischemic change with periventricular leukomalacia. No infarct, mass, hemorrhage or extra-axial fluid or blood collection. 10/18/2014 chest xray: no acute findings. Precautions Precaution info given Yes;To use call light to request assistance with all mobililty Prior Function Level of Assistance Independent with ADLs ;Independent with functional transfers;Needs assistance with homemaking Lives With Assisted Living Receives Help From mens locker room attendant ADL Assistance Independent Homemaking Assistance Needs assistance Meal Prep Total Laundry Total Vacuuming Total Cleaning Total Gardening Total Yard Work Total Driving No Shopping Needs assistance Vocational Retired Leisure Hobbies - Yes (comment) (Pt goes to adult day care. TV and reading.) Home Living Type of Home Assisted Living Home Layout Able to Live on Main level with bedroom/bathroom Bathroom Shower/Tub Walk-in shower Bathroom Toilet Standard Bathroom Equipment None Bathroom Accessibility Accessible Home Equipment Cane Cognition Overall Cognitive Status Impaired (Appear at least at baseline.) Receptive Needs some reminders with directions. Expressive Pt able to make her needs known. Arousal/Alertness Appropriate responses to stimuli Attention Span Appears intact Memory Appears intact Orientation Level Oriented X3 Following Commands Follows one step commands with increased time;Follows one step commands with repetition Safety Judgement Decreased awareness of need for assistance;Decreased awareness of need for safety;Decreased awareness of safety techniques;Requires verbal cues for safety;Requires tactile cues for safety Awareness of Errors Assistance required to correct errors made Insight Decreased awareness of deficits Problem Solving Assistance required to generate solutions Pain Screening PT/OT Patient Currently in Pain Yes Pain Rating (Unable to rate) Pain Location Ankle Pain Intervention(s) Distraction Observation Presentation Patient resting in bed Observation Enforcement Officer;Bed Alarm;Chair Alarm Right UE Assessment RUE Assessment WFL Left UE Assessment LUE Assessment WFL Hand Function Gross Grasp Functional Coordination Functional Current Level of Function Where Assessed Chair Eating Assistance Independent Grooming Assistance Contact guard UE Bathing Assistance Contact guard LE Bathing Assistance Contact guard UE Dressing Assistance Contact guard LE Dressing Assistance Contact guard Toileting Contact guard Hygiene Assistance Patient independent Bed Mobility Supine to Sit Stand by assist Transfers Sit to Stand Contact guard assist;Stand by assist Stand to Sit Contact guard assist;Stand by assist Balance Sitting - Static Good Sitting - Dynamic Good Standing - Static Good Standing - Dynamic Good minus Perception Initiation Appears intact Motor Planning Appears intact Perseveration Not present Assessment Assessment Decreased ADL status;Decreased self-care trans;Decreased high-level ADLs;Decreased Safe judgement during ADL;Decreased cognition Prognosis Fair;Good Goal Formulation With Patient Goals Yes ADL Goals Pt Will Perform All ADL's Mod indep Functional Transfer Goals Pt Will Perform All Functional Transfers Mod indep Plan Treatment Interventions ADL retraining;Instrumental ADL retraining;Functional transfer training;UE strengthening/ROM;Endurance training;Cognitive reorientation;Patient/Family training;Equipment eval/education;Neuro muscular reeducation;Compensatory technique education OT Frequency 2-5x/wk Time for Goal Achievement 1-2 weeks Recommendation OT Recommendation Home with prior support;24 hour supervision/assist Time In / Time Out [id number] IP OT Evaluation Minutes 10 IP OT Individual Treatment Minutes 10 * Therese Roman RN - 10/19/2014 4:37 PM EDT 10/19/14 1637 Discharge Planning Evaluation Actual Discharge Plan 10/19/14 CC Update: MD states patient is capable of making her own decisions. * Therese Roman RN - 10/19/2014 4:35 PM EDT 10/19/14 1634 Discharge Planning Evaluation Actual Discharge Plan 10/19/14 CC Update: After hours CC received request from day time CC asking tocontact MD to see if patient can make her own decisions. Text message sent to primary MD. Also asked to call [facility] to see if they could possibly accept patient. Admission woman stated all beds are full right now and to call back in a week. Available if needed. * Ela Marquez, RN - 10/19/2014 3:53 PM EDT 10/19/14 1552 Assessment Complete Actual Discharge Plan 10/19/14 CC received call from Marshall from [facility] who received a report for selfneglect and will come to hospital tomorrow to see patient. Lauren, case specialist, at [facility], toldCC that she was going to fill out the report earlier today. SW to follow. * Ela Marquez, RN - 10/19/2014 3:26 PM EDT 10/19/14 1526 Assessment Complete Actual Discharge Plan 10/19/14 CC NOTE- CC called No.Steve. [facility] in [place], [phone], and left message to call CC to discuss transportation and obtain info. on patient. Daughter's number listed on face sheet is disconnected. Patient states that she [facility] and is agreeable to return there at [place]. Patient states that there is too much drama there. Patient is Observation. Pt reports she has been living in assisted living since June 2014. Prior to that,she was living in [place], [place]. Pt. states she was unaware that facility was so far away from [facility].Pt has a cane but states she doesn't * Yasmine Schmitt, PT - 10/19/2014 1:48 PM EDT 10/19/14 1327 PT Subjective Patient Room/Unit 3611 PT EVAL PT Subjective Comments #1 Pt agreed to work with therapy. States she wants to return to [place], [place], as her family lives there. Admits to h/o falls but unsure why she is falling. Admitting Diagnosis h/o CVA, frequent falls, weakness left leg. Past Med Hx Pt was admitted via ED 10/18/2014 with left sided numbness and tingling left foot. PMHx:COPD, DDD, CHF, DM, HTN, yeast infection (recurrent), suicide attempt, stroke, restless leg syndrome, lung surgery, breast surgery, left TKA, left ankle fracture surgery. Diagnostic Testing 10/18/2014 left hip xray: no significant osseous, joint or soft tissue abnormality seen. 10/18/2014 CT head: Chronic ischemic change with periventricular leukomalacia. No infarct, mass, hemorrhage or extra-axial fluid or blood collection. 10/18/2014 chest xray: no acute findings. Pain Screening PT/OT Patient Currently in Pain Yes Pain Rating (not rated) Pain Location Ankle Pain Orientation Left;Medial Pain Duration Continuous Additional Comments pt reports pain is new but that swelling in left LE is chronic since ankle fracture surgery. Cognition Overall Cognitive Status WFL Receptive WFL Expressive WFL Arousal/Alertness Appropriate responses to stimuli Attention Span Appears intact Memory Appears intact Orientation Level Oriented X4;Pleasant and Cooperative Following Commands Follows one step commands without difficulty Safety Judgement Requires verbal cues for safety;Decreased awareness of need for assistance;Decreased awareness of need for safety;Decreased awareness of safety techniques Awareness of Errors Assistance required to identify errors made Insight Decreased awareness of deficits Problem Solving Assistance required to identify errors made Additional Comments Pt may lack insight into safety/injury potential. Precautions Precaution info given Yes;To use call light to request assistance with all mobililty Home Living/Prior Function Type of Home Assisted Living Home Layout Able to Live on Main level with bedroom/bathroom Number of Steps 0 Home Equipment Cane;Shower chair;Grab bars Level of Assistance Ambulatory in home;Needs assistance with homemaking;Independent with functionaltransfers Lives With Assisted Living Additional Comments Pt reports she has been living in assisted living since May 2014. Prior to that, she was living in [place], [place]. Pt states she was unaware that facility was so far away from [facility]. Pt has a cane but states she doesn't use it. Pt holds onto furniture. Pt spends mostof her time in her room and stays to herself. Has assistance for cooking, housekeeping and laundry. Observation Presentation Patient resting in bed Posture 5' 8.5 , 224 lbs per medical record Observation Enforcement Officer;Bed Alarm Right UE Assessment Additional Comments see OT eval Left UE Assessment Additional Comments see OT eval RLE Assessment RLE Assessment WFL LLE Assessment LLE Assessment WFL Additional Comments edema left lower extremity. DF 4/5. pt reports pain medial left ankle. No bruising or discoloration observed in this area. Bed Mobility Supine to Sit Stand by assist Transfers Sit to Stand Contact guard assist;Stand by assist Stand to Sit Contact guard assist;Stand by assist Stand Pivot Transfers Contact guard assist Gait PT Gait Contact guard assist Gait Distance (Feet) 45 Feet Assistive Device None Pattern Slow chhaya Weight Bearing Status Weight bearing as tolerated Additional Comments ambulates with toe-out foot progression/ER at hips. Pt reports she normally drags left foot. Pt had decreased DF and heelstrike but was able to clear both feet from floor during gait. No overt LOB but has wide PAUL. Balance Sitting - Static Good Sitting - Dynamic Good Standing - Static Good Standing - Dynamic Good minus Exercise Exercise No Education Education Patient/Family Education;Role of Therapy;Safety with mobility;Cues for proper technique;Discharge planning;Up with assistance only;Safe and proper posture/positioning;Safe and proper technique with transfers;Safe and proper technique with gait pattern Patient Safety Patient Safety Patient seated edge of bed;Bed alarm activated;Nursing notified of status Assessment Assessment Decreased gait Prognosis Good Rationale for Skilled Therapy Not safe ambulating independently Goals PT GOALS (Yes/No) Yes Add Goals Pt Will Ambulate 31-50 feet;51-100 feet;With stand by assist Goal Formulation With patient Time for Goal Achievement 5 treatment days Plan Treatment/Interventions Gait training;Neuromuscular re-education;Balance training;Functional transfer training;LE strengthening/ROM;Increase activity tolerance ;Patient/Family training;Equipment eval/education;Compensatory technique education PT Frequency 2-5x/wk Recommendation PT Recommendation Home with prior support;24 hour supervision/assist Equipment Recommended (may need to use her cane ) Time In / Time Out 1307/1327 IP PT Evaluation Minutes 10 IP PT Treatment Minutes 10(gait) * Ela Marquez RN - 10/19/2014 11:26 AM EDT 10/19/14 1126 Assessment Complete Actual Discharge Plan 10/19/14 CC NOTE- CC received call from Jimbo Aguilar Espinoza case specialist, who saw patient yesterday and referred her to hospital. Lauren states that is not a safe discharge plan for patient to return to [facility]. CC requested Lauren to fill out APS report. CC spoke with Psych Tech regarding placement and is awaiting PT evaluation. Patient will need SW tofollow. * Yasmine Schmitt, PT - 10/19/2014 9:46 AM EDT 10/19/14 0922 PT Subjective Patient Room/Unit 3611 Therapy delay reason Patient eating;Nursing/Physician/other therapy care being provided * Payton Melton OT - 10/19/2014 9:37 AM EDT 10/19/14 0937 OT Subjective Patient Room/Unit 3611 Therapy delay reason Patient eating;Nursing/Physician/other therapy care being provided * Shane Carcamo Tommie - 10/19/2014 3:48 AM EDT Please clarify home dose of Aripiprazole (Abilfy) Home dose was listed as 20mg three times daily Patient does not know what dose she takes She does not even know if she has to take multiple tablets to achieve her dose (would be necessary to take a 20 mg dose) Maximum recomended daily dose is 30 mg Suspect actual dose is 2 mg TID not 20 mg Will change dose to 2 mg TID overnight until dose is verified with home provider Thank You Ben Carcamo [facility] * Ela Cochran RN - 10/18/2014 8:23 PM EDT 10/18/14 2019 ED Screening ED Screening Completed Initial screening complete, post-acute needs identified, assessment to follow Medical Record Reviewed Yes Who you interviewed In person interview with patient What brought the patient to the ED weakness Where did the patient come from? Assisted Living Support Systems Other (Comment);Agency Issues related to prior living situation 10/18/14 ED CC Met with pt in the room. Pt denies needs at this time. OBS letter given to pt. Pt to ED from [facility] [phone]. Pt states she has a room ther and they will come get her at discharge. Pt goes to daycare during the day. Pt does not have any DME,states she falls alot. Pt is unsure about her scripts states they take care of them. Pt has a PCP, JEAN-PAUL Trevino. CC to follow for discharge.. Activities of Daily Living Needs Assistance Mental Status Alert and oriented Issues with non-compliance No Anticipated post-acute care needs Home with OP Follow Up Potential barriers to discharge No Observation Information Provided to Patient/Family Yes documented in this encounter H&P Notes * Jordy Badillo MD - 10/19/2014 8:16 AM EDT [facility]/[facility]/[place], [place] NAME: FABY PALM [facility]#: [id number] LOCATION/ROOM: FTT [facility] [address] FACILITY: [facility] DICTATOR: Jordy Badillo HISTORY AND PHYSICAL Page 4 HISTORY AND PHYSICAL ADMISSION DATE: 10/18/2014 DATE OF : 1950 HISTORY OF PRESENT ILLNESS: Faby Palm is a 64-year-old female with a medical history significant for COPD, degenerative disk disease, history of diabetes, depression, and a previous history of CVA with residual left hemiparesis. The patient came to the emergency room complaining of left lower extremity weakness and frequent falls. According to the patient for the past several weeks, she hasbeen having difficulty with her left leg and is becoming progressively weak. The patient reports that as a result of this, she walked mostly by dragging her left leg and she has been falling frequently. She denies having any pain in the leg but it is swollen. She denies any weakness or numbness of the other extremities. No fever and no injury. PAST MEDICAL HISTORY: Past medical history is significant for depression, COPD, degenerative disk disease, diabetes, hypertension, and a previous CVA with residual left hemiparesis. PAST SURGICAL HISTORY: Past surgical history is significant for a left knee replacement. She had a partial lung removal with surgeries. ALLERGIES: She is allergic to [place], [place], and Compazine. SOCIAL HISTORY: The patient denies smoking. She denies alcohol. She denies the use of illicit drugs. HOME MEDICATIONS: Her home medications include Abilify, Hydroxyzine 50 mg every 6 hours, Requip 0.5mg 3 times a day, and Effexor 150 mg daily. FAMILY HISTORY: Family history was reviewed. It is significant for her sister who has a history of heart disease. She reports that her mother had a history of cancer. REVIEW OF SYSTEMS: Review of systems was obtained at this time. The patient feels well except for swelling and weakness of her left lower extremity. She has no headache, no blurry vision, no dizziness, and no lightheadedness. She has no nausea or vomiting, no diarrhea, no dysuria, and no rash on the skin. She has no suicidal ideation. No chest pain, no palpitations. All other systems are reviewedand are negative. PHYSICAL EXAMINATION: GENERAL: The patient is not in acute distress. Her blood pressure is 160/89, pulse 78, respiratory rate 18, temperature 98.2, and oxygen saturation is 95% on room air. HEENT: Head is atraumatic. Pupils are equal, round, and reactive to light. NECK: Neck is supple. No JVD. She has no carotid bruit. LUNGS: Lungs are clear to auscultation. HEART: Heart is regular. S1 and S2 normal. ABDOMEN: The abdomen is soft, nontender, and nondistended. Bowel sounds are present. EXTREMITIES: Her left lower extremity is edematous. No warmth or painful to touch. She has no edemaor calf tenderness in the right lower extremity. The patient has difficulty picking up her left lower extremity from the bed, but once she is helped, she is able to maintain the leg against gravity. NEUROLOGIC: She is alert, awake, and oriented x 3. She has a mild hemiparesis of her left upper extremity and the left lower extremity is showing signs of weakness, especially when it comes to sisal picker her legs from the bed. SKIN: Skin is intact. No rash or jaundice. LABS: Labs in the emergency room, her CBC showed a WBC of 8.6, hemoglobin 13, hematocrit 40.4, and platelets 143. Chemistry: Sodium 140, potassium 3.8, chloride 104, CO2 24, BUN 14, creatinine 0.91, and her glucose is 90. Troponins are negative at less than 0.01 x 3. BNP is 308. CT of the head shows chronic ischemic changes with periventricular leukomalacia. There is no infarct, mass, hemorrhage, or extra axial fluid or blood collection. Her chest x-ray shows no acute findings. EKG shows that she is in sinus rhythm at 71 beats per minute. She has some Q waves in 2 and aVF andV2 and V3 but no acute changes. X-ray of the left hip shows no significant osseous, joint, or soft tissue abnormality seen. ASSESSMENT: A 64-year-old female with: 1. Left lower extremity weakness: I suspect the patient may have some degree of peripheral neuropathy. There is no evidence of acute CVA (cerebrovascular accident). 2. Depression. 3. Hypertension. 4. 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 PLAN: 1. The patient is being admitted to the medical floor. 2. I will obtain an MRI of her lumbar spine. 3. I will ask neurology to evaluate for this peripheral neuropathy. 4. Given the swelling of her left lower extremity, we will obtain a Doppler to rule out DVT. 5. We will check her vitamin B12, folate, and TSH. 6. We will control her blood pressure. 7. We will review and resume her home medications. I have discussed the diagnosis and plan of care with the patient. All questions were answered. She expressed complete understanding and agreed to proceed. Jordy Badillo MD By: bull/glen Job ID: [id number] Doc ID: [id number] CC: documented in this encounter Consult Notes * Shane Castano MD - 10/20/2014 12:45 PM EDTAssociated Order(s): IP CONSULT TO NEUROSURGERY [id number] Left LE weakness and numbness. MRI L-spine shows mild DDD with some left sided narrowing at L4/5 > L5/S1. No LBP and no radicular pain but some left ankle pain. Weakness unclear etiology. Agree with PT, EMG. ? lucunar CVA * Shane Castano MD - 10/20/2014 12:45 PM EDT [facility] [place]/[facility]/[place], [place] NAME: FABY PALM [facility]#: [id number] LOCATION/ROOM: [facility] [address] FACILITY: [facility] DICTATOR: Shane Castano CONSULTATION Page 1 CONSULTATION NEUROSURGICAL CONSULTATION DATE OF CONSULTATION: 10/20/2014 DIAGNOSIS: Left lower extremity weakness. CHIEF COMPLAINT: Left lower extremity weakness. HISTORY OF PRESENT ILLNESS: Ms. Palm is a 64-year-old woman with about a one- week history of left lower extremity weakness. She denies any precipitating event. She has some weakness in the left lower extremity with several falls. She presented to the emergency room and was admitted. Symptoms have been going on for at least a week and progressively worsening. Sometimes they are moderate in intensity and constant. Nothing makes them better or worse. She has been dragging her left leg and thereis associated numbness below the knee. She denies any bowel or bladder dysfunction. There is some pain around the medial ankle on the left side, but otherwise no low back or lower extremity pain. Shehas not had any specific treatment for this. No chest pain or shortness of breath or swelling in the leg. PAST MEDICAL HISTORY: Her past medical history is significant for depression, COPD, degenerative disk disease, diabetes, hypertension, CVA with some left hemiparesis. PAST SURGICAL HISTORY: Left knee replacement and a partial lung removal. MEDICATIONS: Her medications include: 1. Abilify. 2. Hydroxyzine. 3. Requip. 4. Effexor. ALLERGIES: [place], Talwin, and Compazine. SOCIAL HISTORY: Denies smoking. Denies alcohol. Denies drug use. FAMILY HISTORY: Family history is significant for heart disease, cancer. REVIEW OF SYSTEMS: Review of systems is as above. PHYSICAL EXAMINATION: GENERAL: On examination today, she is an age-appropriate woman, sitting comfortably in bed, eating her lunch. VITAL SIGNS: Temperature is 97, pulse 76, respirations 19, blood pressure 160/70. NEUROLOGIC: She is awake, alert, and oriented x3. Her mood and affect is appropriate. Her gait and station is significant for externally rotated left lower extremity at the hip, but she does not otherwise have an antalgic gait and she can get up and down without any assistance or difficulty. Her balance was intact. Her gait was steady. Her sensation to light touch appears to be intact throughout and her deep tendon reflexes are 2+ including both knee jerks and ankle jerks. She does not have much in the way of tenderness to palpation in the lumbar spine and only minimally restricted range of motion of the lumbar spine. No tenderness to palpation and normal range of motion throughout the remainder of the spine and four extremities. No gross instability and normal strength and tone in all those areas as well with the exception of some mild diffuse weakness throughout the left lower extremity. No one muscle group is particularly involved although the weakness seems to be perhaps a little more noticeable proximally than it does distally. There is edema in the left lower extremity at 2+ pitting and that is a distinct difference from the right-hand side. There is no cervical lymphadenopathy and no obvious lesions of the visible skin and subcutaneous tissue over the head, neck, torso and four extremities, with the exception of a scar over the right side of the forehead. REVIEW OF TESTING: An MRI scan of the lumbar spine shows an age-appropriate degree of degenerative disease with some mild lateral recess narrowing at L4-L5 on the left, moderate foraminal narrowing, and there is also mild to moderate foraminal narrowing at L5-S1 on the left. There is no high-grade stenosis or high-grade left-sided neural compression. If anything the narrowing may be a little moresignificant on the right side, particularly at L4-L5. I personally reviewed the films and read the radiology report and agree with the findings. IMPRESSION AND PLAN: My impression is one of some left lower extremity weakness of unclear etiologyalthough this could be related to degenerative disease of the lumbar spine. It is a little atypicalthat there is very little if any pain. Head CT showed no evidence of acute infarct, but it is possible a smaller infarct visible on MRI scan might be missed on CT. In addition, otherwise I agree withphysical therapy and an outpatient EMG. Shane Castano MD By: lan Job ID: [id number] DocID: [id number] CC: * Charmaine Chandler MD - 10/19/2014 7:06 PM EDT [facility] [place]/[facility]/[place], [place] NAME: [facility]#: [id number] LOCATION/ROOM: [facility] [address] FACILITY: [facility] DICTATOR: Charmaine Chandler CONSULTATION Page 2 CONSULTATION DOCPROPERTY CopyText \* [facility] [facility] CONSULTATION DATE OF CONSULTATION: 10/19/2014 DATE OF : 1950 REASON FOR CONSULTATION: Left leg weakness. HISTORY OF PRESENT ILLNESS: This is a 64-year-old white female with history of COPD, degenerative disk disease, stroke, who presented to the hospital with progressive left lower extremity weakness, frequent falls. No numbness. No lower back pain. She was dragging her left leg. She denied incontinence. PAST MEDICAL HISTORY: Depression, COPD, degenerative disk disease, diabetes, hypertension, previousstroke, with left-sided weakness. PAST SURGICAL HISTORY: Left knee replacement. ALLERGIES: [place], Talwin, and Compazine. SOCIAL HISTORY: Does not smoke or drink. Currently living in assisted living. She apparently is from [place], [place]. PHYSICAL EXAMINATION: VITAL SIGNS: Blood pressure 150/70, pulse 70, respirations 18, temperature 98. GENERAL: In general, the patient is in no acute distress. NECK: Neck is supple. NEUROLOGIC: She is awake, oriented to time, person, place, and town. She has normal language function and normal attention span. Cranial nerves II through XII are intact. Her reflexes 1+ upper extremity, 2+ knee, 2+ ankle. Babinski is downgoing. Sensation, including vibratory sense and temperature are normal bilaterally. Muscle strength 5/5 right and left upper extremity; right lower extremity knee extension is 4/5. Dorsi plantar flexion 4+/5 on the left side. Knee flexion is 4+/5. LABORATORY DATA/CLINICAL TESTS: MRI of the lumbar spine showed moderate degenerative disk disease L4-5, with a left side dominance, mild left central canal narrowing, left lateral recess narrowing, moderate left neural foraminal stenosis at L4-5. Mild to moderate diffuse bulge at L3-4, with a moderate right and mild left neural foraminal stenosis. LABORATORY EVALUATION/CLINICAL TESTS: B12 is 379, folic acid 14, pH 1.6, WBC 8.4. Sodium 140, creatinine 0.9, troponin negative, and syphilis test is negative. ASSESSMENT/PLAN: Left leg weakness, with left greater than right foraminal spinal stenosis, L4-5, which is consistent with her MRI findings. I would like to obtain EMG testing to rule out acute radiculopathy. The patient does not really have back pain. Unsure whether she will be a good surgical candidate. CT scan only showed periventricular leukomalacia. May consider a surgical consultation also. Charmaine Chandler MD By: singh/jessica/[facility] Job ID: [id number] DocID: [id number] CC: * Charmaine Chanlder MD - 10/19/2014 6:59 PM EDTAssociated Order(s): IP CONSULT TO NEUROLOGY Assessment: Lumbar spondylosis Left leg weakness: more left L4-5 level, DTR nl as well as sensory, no LBP Plan: PT EMG left leg to rule out left acute radiculopathy Consider consult surgery documented in this encounter ED Notes * Altaf Julien RN - 10/18/2014 9:44 PM EDT Report to Lia BANSAL on TCU-3. * Rod Lopez PA - 10/18/2014 5:05 PM EDT Chief Complaint Patient presents with ??? Extremity Weakness complains of left sided numbness & tingling in foot, hx of old CVA and has residual weakness onleft side related to that- today arrives complaining of more frequent falls and weakness, no LOC atany occurence, arrives alert adn oriented X4 HPI Comments: This is a 64-year-old female patient with history of CVA approximately 5 years ago that presents with left lower extremity weakness over the last 2-3 days. She is seen for Dr. Parker. Patient denies any other weakness, confusion, or altered mental status. Patient states about 2-3 days ago she noticed some swelling to the left foot. This was also accompanied by weakness, mainly to the left hip. The weakness is intermittent. She will be standing and walking and light will suddenly give out on her causing her to fall. She has fallen at least 2 times. She denies any head injury or other muscular skeletal injuries from the fall. Patient denies any confusion or altered mental status. There is been no chest pain, palpitations, shortness breath. No nausea or vomiting. Patient denies any back pain. She denies urinary retention or incontinence. No saddle paresthesia. No loss of function or weakness of the lower extremity. Patient denies any history of malignancy. Norecent epidural injections. No IV drug use. No fever. The history is provided by the patient. No hourly sign language interpreter was used. Allergies Allergen Reactions ??? Compazine [Prochlorperazine Edisylate] ??? [place] ??? Talwin [Pentazocine Lactate] Home Medications: Prior to Admission medications Medication Sig Start Date End Date Taking? Authorizing Provider ARIPiprazole (ABILIFY) 20 mg Oral Tablet Take 20 mg by mouth daily. Yes Provider, Historical hydrOXYzine (ATARAX) 50 mg Oral Tablet Take 50 mg by mouth every 6 hours as needed for Itching. YesProvider, Historical roPINIRole (REQUIP) 0.5 mg Oral Tablet Take 0.5 mg by mouth 3 times daily. Yes Provider, Historical venlafaxine (EFFEXOR-XR) 150 mg Oral Capsule, Sust. Release 24 hr Take 150 mg by mouth daily. Provider, Historical Past Medical History: Past Medical History Diagnosis Date ??? COPD (chronic obstructive pulmonary disease) ([facility]) ??? DDD (degenerative disc disease) ??? CHF (congestive heart failure) (HCC) ??? Diabetes mellitus (HCC) ??? Hypertension ??? Yeast infection recurrent ??? Suicide attempt (HCC) ??? Stroke (HCC) 2010 left side affected Social History: reports that she has never [...] replacement ??? Ankle surgery Review of Systems Constitutional: Negative for fever. Eyes: Negative for visual disturbance. Respiratory: Negative for shortness of breath. Cardiovascular: Negative for chest pain and palpitations. Gastrointestinal: Negative for nausea, vomiting and abdominal pain. Genitourinary: Negative for dysuria. Musculoskeletal: Negative for neck pain. Skin: Negative for rash. Neurological: Positive for weakness (Left hip.). Negative for dizziness and headaches. Psychiatric/Behavioral: Negative. All other systems reviewed and are negative. Blood pressure 160/84, pulse 66, temperature 98.4 ??F (36.9 ??C), temperature source Oral, resp. rate 14, height 5' 8 (1.727 m), weight 224 lb (101.606 kg), SpO2 98 %. Physical Exam Constitutional: She is oriented to person, place, and time. She appears well- nourished. No distress. Pt is awake, alert, oriented. Appears well. NAD. HENT: Head: Normocephalic and atraumatic. Eyes: Conjunctivae and EOM are normal. Pupils are equal, round, and reactive to light. Neck: Normal range of motion. Neck supple. No JVD present. Cardiovascular: Normal rate and regular rhythm. Pulmonary/Chest: Effort normal and breath sounds normal. Abdominal: Soft. She exhibits no distension. Musculoskeletal: She exhibits no edema. Neurological: She is alert and oriented to person, place, and time. Patient is awake, alert, oriented. Pt comprehends and responds my questioning appropriately. There is no slurred speech. No facial droop. Normal facial strength and movements. Normal sensation to face bilaterally. There is no pronator drift. Normal finger to nose. Normal rapid alternating movements. There is mild residual left-sided weakness from patient's previous CVA. Range of motion and strength is at baseline with the exception of flexion of the left hip. Patient is able to adequately flex, extend and have normal strength against resistance with the ankle and knee. However, she has difficulty flexing the hip and is wheezing into resistance with this motion. Skin: Skin is warm and dry. No rash noted. Psychiatric: She has a normal mood and affect. Nursing note and vitals reviewed. Procedures Radiology/EKG/Labs: Results for orders placed or performed during the hospital encounter of 10/18/14 CT HEAD WO CONTRAST Narrative CT HEAD WO CONTRAST 10/18/2014 at 1623 hours Clinical: 64-year-old female. Left leg weakness. Technical: 5 mm axial sections. No contrast. Compare: None FINDINGS: Ventricles normal in size and position. No mass, no mass effect, no hemorrhage, no infarct or extra-axial fluid or blood collection. Extensive periventricular leukomalacia. Impression IMPRESSION: Chronic ischemic change with periventricular leukomalacia. No infarct, mass, hemorrhage or extra-axial fluid or blood collection. XR CHEST AP PORTABLE Narrative XR CHEST AP PORTABLE EXAM DATE Oct 18, 2014 03:43:24 PM HISTORY: -Chest Pain Comparison: 08/29/2013 FINDINGS: Lungs are clear. There is unchanged mild to moderate cardiomegaly. There's no pleural fluid Impression IMPRESSION: No acute findings XR HIP LEFT AP AND LATERAL Narrative XR HIP LEFT AP AND LATERAL , 3 views 10/18/2014 at 1751 hours Clinical: 64-year-old female. Left side weakness Impression IMPRESSION: No significant osseous, joint or soft tissue abnormality is seen. TROPONIN-T Result Value Ref Range Troponin-T <0.01 <=0.02 ng/mL CBC WITH AUTO DIFF Result Value Ref Range WBC 8.4 4.0 - 11.0 x10(3)/mcL RBC 4.66 3.80 - 5.10 x10(6)/mcL Hgb 13.0 12.0 - 15.6 gm/dL Hct 40.4 35.7 - 45.9 % MCV 86.7 82.5 - 99.8 fL MCH 27.9 27.0 - 34.3 pg MCHC 32.2 32.1 - 35.3 gm/dL RDW 14.8 11.5 - 15.0 % Platelet 143 (L) 144 - 423 x10(3)/mcL MPV 9.8 6.8 - 10.8 fL COMPREHENSIVE METABOLIC PANEL Result Value Ref Range Sodium 140 136 - 145 mmol/L Potassium 3.8 3.5 - 5.0 mmol/L Chloride 104 98 - 107 mmol/L Total CO2 24 22 - 29 mmol/L Anion Gap 12 7 - 16 mmol/L Calcium 9.2 8.8 - 10.2 mg/dL Glucose Lvl 90 82 - 100 mg/dL BUN 14 8 - 23 mg/dL Creatinine 0.91 0.51 - 1.30 mg/dL Albumin 3.6 3.2 - 4.6 gm/dL Total Protein 6.8 6.4 - 8.3 gm/dL Bili Total 0.5 0.1 - 1.3 mg/dL AST 14 <=40 IU/L ALT 17 <=41 IU/L Alk Phos 183 (H) 35 - 104 IU/L GFR Afr Am >60 GFR Non Afr Am >60 NT PROBNP Result Value Ref Range NT Pro-BNP 308 <=319 pg/mL DIFFERENTIAL Result Value Ref Range Neut Percent 54.8 % Lymph Percent 34.2 % Isabella Percent 7.4 % Eos Percent 2.6 % Baso Percent 1.0 % Neut# 4.6 1.8 - 7.7 x10(3)/mcL Lymph# 2.9 0.6 - 4.8 x10(3)/mcL Isabella# 0.6 0.0 - 1.3 x10(3)/mcL Eos# 0.2 0.0 - 0.5 x10(3)/mcL Baso# 0.1 0.0 - 0.2 x10(3)/mcL GLUCOSE METER POC Result Value Ref Range Glucose Lvl 98 70 - 100 mg/dL EK EKG 12 LEAD Impression Stationary ECG Study [facility] Interpretive Statements Sinus rhythm with PVC(s) Leftward axis Inferior infarct - age undetermined Old anteroseptal infarct Low QRS voltages in precordial leads Abnormal ECG No change Electronically Signed On 10-18-2014 18:53:33 EDT by Abundio Marin MD ED Course: Appropriate laboratory and radiology studies reviewed This was a 64-year-old female patient seen for Dr. Castillo that presented with left lower extremity weakness. On exam this weakness appears to be isolated to the hip area. Neurologic exam is otherwise normal with the exception of residual left-sided weakness from previous CVA which is the patient's baseline. There is no evidence of current stroke at this time. Head CT is negative. Cardiac workup is obtained and is negative. Troponin is not elevated. EKG is normal sinus rhythm with PVC. Throat is not elevated. Chest x-ray clear. BNP is not elevated at 308. X-ray of the left hip is initially obtained and is negative. Case is discussed Dr. Parker. Given the patient's frequent falls, age, and history of previous CVAs admission is recommended. Hospitalist is paged. I spoke to Heather Ayon NP. for the hospitalist service. Admission is accepted under Dr. Badillo. Pt is admitted to Med/Surg. PT/OT consults placed. ED Clinical Impression: Weakness of left leg (primary encounter diagnosis) Frequent falls History of CVA (cerebrovascular accident) Critical Care time Condition at Discharge/Transfer from Department: Stable This chart was completed using voice recognition technology and may contain unintended errors Rod Lopez PA 10/18/[id number] Cosigned by Marcio Parker MD at 10/18/2014 9:32 PM EDT Associated attestation - Marcio Parker MD - 10/18/2014 9:32 PM EDT This chart was completed using voice recognition technology and may contain unintended errors documented in this encounter Miscellaneous Notes * Plan of Care - Alyx De La Cruz RN - 10/22/2014 2:13 AM EDT Problem: Pain Management Goal: The patient???s stated pain goal will be reached and maintained. The patient???s stated pain goal will be reached and maintained Outcome: Progressing Pain medication given for complaint of pain. Medication was effective Problem: Infection - 8 Goal: Signs and symptoms of infections are decreased or avoided Outcome: Progressing WBC 8. 5 , afebrile no signs or symptoms of infection Problem: Safety: Fall Risk Goal: Patient will remain free of falls and injury Outcome: Progressing Bed alarm on x2 Patient will get up without calling for assistance. Reminders given to the patient to call for assistance . Side rails up x2 Problem: Knowledge Deficit Goal: Patient/family will be knowledgeable of disease process and treatment Outcome: Progressing Patient is informed of care that is being given Problem: Altered Mobility - 79 Related to paresis/paraplegia Goal: Patient will reach optimal mobility status with highest level of independence Outcome: Progressing Patients gait unsteady Problem: Psycho/Social/Spiritual Goal: Patient will identify sources of support and strength Outcome: Progressing Patient had cheondoism mass playing on the television. She stated she has watched it a few times * Plan of Care - Kasia Mendez RN - 10/20/2014 12:18 AM EDT Problem: Pain Management Goal: The patient???s stated pain goal will be reached and maintained. The patient???s stated pain goal will be reached and maintained Outcome: Not Progressing Minor c/o ankle pain; given prn pain medication with relief. Will continue to monitor. Problem: Safety: Fall Risk Goal: Patient will remain free of falls and injury Outcome: Progressing BA in use, no falls this shift. Bed locked in lowest position, pt. Reminded to call for assist whenneeded-pt. Forgetful at times about call light system. Siderails upx2. Will continue to monitor. Problem: Knowledge Deficit Goal: Patient/family will be knowledgeable of disease process and treatment Outcome: Progressing Pt. Updated on POC, no further questions at this time. * Plan of Care - Ela Marquez RN - 10/19/2014 3:27 PM EDT Problem: Discharge/Coordination of Care/Transition of Care Goal: Patient will have a plan for disposition or transition to next level of care Outcome: Progressing 10/19/14 Patient has DC needs. Problem: Disposition/Transition of Care Goal: Patient will have a plan for disposition or transition to next level of care Outcome: Progressing 10/19/14 Patient has DC needs. * H&P Update - Jordy Badillo MD - 10/19/2014 8:25 AM EDT Patient seen and examined. Full H&P dictated. Impression 1.Weakness of left leg/Frequent falls. 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 No evidence of acute CVA 2.History of CVA (cerebrovascular accident) 3.Essential hypertension 4. Depression Plan MRI of the lumbar spine B12/Folate, TSH., RPR Neurology evaluation Lower extremity ultrasound to r/o DVT Home meds Start Lisinopril 20 mg daily PT eval Jordy Badillo MD * Plan of Care - Lia Gale RN - 10/19/2014 2:08 AM EDT Problem: Pain Management Goal: The patient???s stated pain goal will be reached and maintained. The patient???s stated pain goal will be reached and maintained Outcome: Progressing Pt's pain well controlled throughout shift. Problem: Infection - 8 Goal: Signs and symptoms of infections are decreased or avoided Outcome: Progressing Pt afebrile throughout shift. WBC are within normal limits. Problem: Safety: Fall Risk Goal: Patient will remain free of falls and injury Outcome: Progressing Fall/injury free throughout shift. Side rails up x2, bed alarm on, call light within reach documented in this encounter Plan of Treatment Scheduled Orders Name Type Priority Associated Diagnoses Orde r Schedule EMG Neurology Routine One Time for 1 Occurrences starting 10/22/2014 until 10/22/2014 documented as of this encounter Procedures Procedure Name Priority Date/Time Associated Diagnosis Comments SCANNED RHYTHM STRIPS 10/24/2014 11:10 PM EDT SCANNED RHYTHM STRIPS 10/22/2014 2:15 AM EDT SCANNED RHYTHM STRIPS 10/21/2014 2:19 AM EDT IP CONSULT TO NEUROSURGERY Routine 10/20/2014 10:52 AM EDT Procedure Note - Shane Castano MD - 10/20/2014 12:45 PM EDTThis note is in progress. [id number] Left LE weakness and numbness. MRI L-spine shows mild DDD with some leftsided narrowing at L4/5 > L5/S1. No LBP and no radicular pain but some left ankle pain. Weakness unclear etiology. Agree with PT, EMG. ? lucunar CVA LIPID SCREEN Routine 10/20/2014 7:10 AM EDT SCANNED RHYTHM STRIPS 10/20/2014 3:49 AM EDT MRI LUMBAR SPINE WO CONTRAST EMMY 10/19/2014 2:18 PM EDT VA US LOWER EXTREMITY VENOUS BILATERAL Routine 10/19/2014 12:12 PM EDT SYPHILIS SCREEN WITH REFLEX RPR QUANT Routine 10/19/2014 11:39 AM EDT VITAMIN B12/ FOLIC ACID Routine 10/19/2014 11:39 AM EDT THYROID STIMULATING HORMONE Routine 10/19/2014 11:39 AM EDT IP CONSULT TO NEUROLOGY Routine 10/19/2014 8:25 AM EDT Procedure Note - Charmaine Chandler MD - 10/19/2014 6:59 PM EDTThis note is in progress. Assessment: Lumbar spondylosis Left leg weakness: more left L4-5 level, DTR nl as well as sensory, noLBP Plan: PT EMG left leg to rule out left acute radiculopathy Consider consult surgery SCANNED RHYTHM STRIPS 10/19/2014 12:57 AM EDT TROPONIN-T Timed 10/18/2014 11:30 PM EDT IP CONSULT TO SOCIAL WORK Routine 10/18/2014 10:52 PM EDT TROPONIN-T STAT 10/18/2014 7:30 PM EDT XR HIP LEFT AP LATERAL W AP PELVIS EMMY 10/18/2014 6:16 PM EDT TROPONIN-T STAT 10/18/2014 5:28 PM EDT DIFFERENTIAL STAT 10/18/2014 5:28 PM EDT CBC WITH DIFF STAT 10/18/2014 5:28 PM EDT NT PROBNP STAT 10/18/2014 5:28 PM EDT COMPREHENSIVE METABOLIC PANEL STAT 10/18/2014 5:[address] HEAD WO CONTRAST STAT 10/18/2014 4 :22 PM EDT XR CHEST AP PORTABLE EMMY 10/18/2014 3:43 PM EDT EK EKG 12 LEAD STAT 10/18/2014 3:27 PM EDT GLUCOSE METER POC Routine 10/18/2014 3:2 5 PM EDT documented in this encounter Results * SCANNED RHYTHM STRIPS (10/24/2014 11:10 PM EDT) Anatomical Region Laterality Modality Other 10/24/2014 11:1 0 PM EDT us Unknown Unknown IMG ECG ORDERABLES Final Result * SCANNED RHYTHM STRIPS (10/22/2014 2:15 AM EDT) Anatomical Region Laterality Modality Other 10/22/2014 2:15 AM EDT us Unknown Unknown IMG ECG ORDERABLES Final Result * SCANNED RHYTHM STRIPS (10/21/2014 2:19 AM EDT) Anatomical Region Laterality Modality Other 10/21/2014 2:19 AM EDT us Unknown Unknown IMG ECG ORDERABLES Final Result * (ABNORMAL) LIPID SCREEN (10/20/2014 7:10 AM EDT) [facility] Signature Cholesterol 165 <=200 mg/dL [facility] Comment: < 200 ?Desirable 200 - 239 ? Borderline High >= 240 ?High Triglyceride 170(H) <=150 mg/dL [facility] Comment: < 150 ? Normal 150 - 199 ?Borderline High 200 - 499 ?High ??>= 500 ? Very High HDL 41 >=40 mg/dL [facility] Comment: ?? > 60 ?Optimal 40 - 60 ?Acceptable ?? < 40 ?Low LDL Calculated 90 <=100 mg/dL [facility] Comment: ??< 100 ?Optimal 100 - 129 ? Near or above optimal 130 - 159 ? Borderline High 160 - 189 ? High >= 190 ?Very High Blood specimen (specimen) UPPER LIMB STRUCTURE / Unknown 10/20/2014 7:10 AM EDT 10/20/2014 10:36 AM EDT Narrative [facility] - 10/20/2014 11:12 AM EDT NPO for Lipids only. us Jordy Badillo MD CHEMISTRY ORDERABLES Edited Resu lt - Final [facility] [address] [place] [address] * SCANNED RHYTHM STRIPS (10/20/2014 3:49 AM EDT) Anatomical Region Laterality Modality Other 10/20/2014 3:49 AM EDT us Unknown Unknown IMG ECG ORDERABLES Final Result * MRI LUMBAR SPINE WO CONTRAST (10/19/2014 2:18 PM EDT) Anatomical Region Laterality Modality L-spine Magnetic Resonan ce 10/19/2014 8:21 AM EDT Impressions 10/19/2014 3:08 PM EDT IMPRESSION: 1. Moderate degenerative disc and facet disease at L4-L5 with left side dominance, resulting in mild left central canal narrowing, left lateral recess narrowing and moderate left neural foraminal stenosis. 2. Mild to moderate diffuse disc bulge L3-L4 with moderate right and mild left neural foraminal narrowing. Mild central canal stenosis. 3. Bilateral L5-S1 moderate facet arthropathy. Narrative 10/19/2014 3:08 PM EDT MRI LUMBAR SPINE WITHOUT CONTRAST: 10/19/2014 COMPARISON: None. INDICATION: 64-year-old with left leg swelling and weakness. Falling over past couple of months. TECHNICAL FACTORS: Sagittal and axial T1 and T2 and sagittal STIR sequences obtained without contrast on 1.5 Angela magnet. FINDINGS: Lumbar lordosis is mildly exaggerated. There is less than 2 mm anterolisthesis of L3 with respect to L4. Alignment and vertebral height otherwise normal. L4-L5 disc space is most narrowed; moderate in degree. It has left side dominant sub endplate degenerative marrow and irregular endplates with tiny sub-endplate cystic changes. L3-L4 disc space is mildly narrowed. No acute marrow edema. Conus is normal in signal and configuration. Its tip ends lower L1 level. T12-L1 through L2-L3 discs have minimal diffuse disc bulge. Central canal and neural foramen are patent. L3-L4 mild to moderate diffuse disc bulge. Mild central canal narrowing. Ligamentum flavum and facet joints are hypertrophic. Moderate right and mild left neural foraminal stenosis. At L4-L5, there is mild to moderate diffuse disc bulge with asymmetric broad- based left foraminal prominence. Additional mild left greater than right facet and ligamentum flavum hypertrophy contribute to asymmetric left lateral recess narrowing and moderate left neural foraminal stenosis. Ventral thecal sac is minimally concave. Mild left central canal narrowing. Right neural foramen is mildly narrowed. At L5-S1, there is minimal diffuse disc bulge. Central canal and neural foramen are patent. Moderate bilateral facet hypertrophy, including fluid within joint spaces, especially on the left. Procedure Note Ela Chen MD - 10/19/2014 MRI LUMBAR SPINE WITHOUT CONTRAST: 10/19/2014 COMPARISON: None. INDICATION: 64-year-old with left leg swelling and weakness. Falling overpast couple of months. TECHNICAL FACTORS: Sagittal and axial T1 and T2 and sagittal STIRsequences obtained without contrast on 1.5 Angela magnet. FINDINGS: Lumbar lordosis is mildly exaggerated. There is less than 2 mmanterolisthesis of L3 with respect to L4. Alignment and vertebral height otherwise normal. L4-L5 discspace is most narrowed; moderate in degree. It has left side dominant sub endplatedegenerative marrow and irregular endplates with tiny sub-endplate cystic changes. L3-L4 discspace is mildly narrowed. No acute marrow edema. Conus is normal in signal and configuration. Itstip ends lower L1 level. T12-L1 through L2-L3 discs have minimal diffuse disc bulge. Central [place] neural foramen are patent. L3-L4 mild to moderate diffuse disc bulge. Mild central canal narrowing.Ligamentum flavum and facet joints are hypertrophic. Moderate right and mild left neuralforaminal stenosis. At L4-L5, there is mild to moderate diffuse disc bulge with asymmetricbroad- based left foraminal prominence. Additional mild left greater than right facet andligamentum flavum hypertrophy contribute to asymmetric left lateral recess narrowing andmoderate left neural foraminal stenosis. Ventral thecal sac is minimally concave. Mild leftcentral canal narrowing. Right neural foramen is mildly narrowed. At L5-S1, there is minimal diffuse disc bulge. Central canal and neuralforamen are patent. Moderate bilateral facet hypertrophy, including fluid within joint spaces,especially on the left. IMPRESSION: 1. Moderate degenerative disc and facet disease at L4-L5 with left sidedominance, resulting in mild left central canal narrowing, left lateral recess narrowing andmoderate left neural foraminal stenosis. 2. Mild to moderate diffuse disc bulge L3-L4 with moderate right and mildleft neural foraminal narrowing. Mild central canal stenosis. 3. Bilateral L5-S1 moderate facet arthropathy. Jordy Badillo MD [facility] MRI ORDERABLES Final Result * [facility] LOWER EXTREMITY VENOUS BILATERAL (10/19/2014 12:12 PM EDT) Anatomical Region Laterality Modality Vascular, Leg Vascular Imaging 10/19/2014 10:4 9 AM EDT Impressions 10/19/2014 4:04 PM EDT ??CONCLUSIONS ??No evidence of deep vein thrombosis identified in the bilateral lower extremities. ?No evidence of superficial vein thrombosis identified in the bilateral lower extremities. ?Mayo Beard MD Narrative Procedure Note Mayo Beard Jr., MD - 10/19/2014 IMPRESSION CONCLUSIONS No evidence of deep vein thrombosis identified in the bilateral lowerextremities. No evidence of superficial vein thrombosis identified in the bilaterallower extremities. Mayo Beard MD us Jordy Badillo MD IMG VASCULAR ORDERABLES Final Re sult * SYPHILIS SCREEN WITH REFLEX RPR QUANT (10/19/2014 11:39 AM EDT) Pathologist [facility] TREP(SYPHILIS) AB INDEX <0.10 <=1.09 Index Value [facility] Comment: <0.90 - Negative 0.90 to 1.00 - Equivocal ?? Patients with equivocal results should be retested in 7-14 days. >=1.10 - Positive NOTE: ??All equivocal and positive results will be reflexed to Quantitative Non-Treponemal(RPR)test. Blood specimen (specimen) 10/19/2014 11:39 AM EDT 10/19/2014 2:20 PM EDT Jordy Badillo MD CHEMISTRY ORDERABLES Final Resul t Performing Organization Address City/[facility]/ZIP Co de Phone Number [facility] [address] [place] [address] * THYROID STIMULATING HORMONE (10/19/2014 11:39 AM EDT) Pathologist [facility] TSH 1.610 0.270 - 4.200 mcIU/mL [facility] Blood specimen (specimen) UPPER LIMB STRUCTURE / Unknown 10/19/2014 11:39 AM EDT 10/19/2014 2:19 PM EDT Jordy Badillo MD CHEMISTRY ORDERABLES Final Resul t Performing Organization Address City/[facility]/ZIP Co de Phone Number [facility] [address] [place] [address] * VITAMIN B12/ FOLIC ACID (10/19/2014 11:39 AM EDT) Vitamin B12 379 211 - 946 pg/mL [facility] Folic Acid Lvl 14.32 4.50 - 37.30 ng/mL [facility] Blood specimen (specimen) UPPER LIMB STRUCTURE / Unknown 10/19/2014 11:39 AM EDT 10/19/2014 2:20 PM EDT Jordy Badillo MD CHEMISTRY ORDERABLES Edited Resu lt - Final Performing Organization Address [facility] Co de Phone Number [facility] [address] [place] [address] * SCANNED RHYTHM STRIPS (10/19/2014 12:57 AM EDT) Anatomical Region Laterality Modality Other 10/19/2014 12:5 7 AM EDT Unknown Unknown IMG ECG ORDERABLES Final Result * TROPONIN-T (10/18/2014 11:30 PM EDT) Troponin-T <0.01 <=0.02 ng/mL [facility] Comment: < 0.03 ?No detectable myocardial injury 0.03 - 0.10 ?? Possible myocardial injury ??> 0.10 ?Indicative of myocardial injury Blood specimen (specimen) 10/18/2014 11:30 PM EDT 10/18/2014 11:40 PM EDT Marcio Parker MD CHEMISTRY ORDERABLES Final Result Performing Organization Address [facility] de Phone Number [facility] [address] [place] [address] * TROPONIN-T (10/18/2014 7:30 PM EDT) Troponin-T <0.01 <=0.02 ng/mL [facility] Comment: < 0.03 ?No detectable myocardial injury 0.03 - 0.10 ?? Possible myocardial injury ??> 0.10 ?Indicative of myocardial injury Blood specimen (specimen) 10/18/2014 7:30 PM EDT 10/18/2014 7:56 PM EDT Marcio Parker MD CHEMISTRY ORDERABLES Final Result Performing Organization Address City/[facility]/ZIP Co de Phone Number [facility] [address] [place] [address] * XR HIP LEFT AP AND LATERAL (10/18/2014 6:16 PM EDT) Anatomical Region Laterality Modality Hip Radiographic Whit ging 10/18/2014 5:30 PM EDT Impressions 10/18/2014 7:22 PM EDT IMPRESSION: ??No significant osseous, joint or soft tissue abnormality is seen. Narrative 10/18/2014 7:22 PM EDT XR HIP LEFT AP AND LATERAL , 3 views 10/18/2014 at 1751 hours Clinical: 64-year-old female. Left side weakness Procedure Note Shane Watkins MD - 10/18/2014 XR HIP LEFT AP AND LATERAL , 3 views 10/18/2014 at 1751 hours Clinical: 64-year-old female. Left side weakness IMPRESSION: No significant osseous, joint or soft tissue abnormality isseen. us Marcio Parker MD IMG DIAGNOSTIC IMAGING [facility] Final Result * DIFFERENTIAL (10/18/2014 5:28 PM EDT) Neut Percent 54.8 % [facility] Lymph Percent 34.2 % [facility] Isabella Percent 7.4 % [facility] Eos Percent 2.6 % [facility] Baso Percent 1.0 % [facility] Neut# 4.6 1.8 - 7.7 x10(3)/mcL [facility] Lymph# 2.9 0.6 - 4.8 x10(3)/mcL [facility] Isabella# 0.6 0.0 - 1.3 x10(3)/mcL [facility] Eos# 0.2 0.0 - 0.5 x10(3)/mcL [facility] Baso# 0.1 0.0 - 0.2 x10(3)/[facility] Blood specimen (specimen) 10/18/2014 5:28 PM EDT 10/18/2014 5:58 PM EDT Marcio Parker MD HEMATOLOGY ORDERABLES Final Result [facility] [address] [place] [address] * NT PROBNP (10/18/2014 5:28 PM EDT) NT Pro-BNP 308 <=319 pg/mL [facility] Comment: An NT pro-BNP level less than 300 pg/mL in any patient, regardless of age, Effectively rules out acute CHF with a 99% negative predictive value. Blood specimen (specimen) 10/18/2014 5:28 PM EDT 10/18/2014 5:58 PM EDT Marcio Parker MD CHEMISTRY ORDERABLES Final Result [facility] [address] [place] [address] * (ABNORMAL) COMPREHENSIVE METABOLIC PANEL (10/18/2014 5:28 PM EDT) Pathologist [facility] Sodium 140 136 - 145 mmol/L [facility] Potassium 3.8 3.5 - 5.0 mmol/L [facility] Chloride 104 98 - 107 mmol/L [facility] Total CO2 24 22 - 29 mmol/L [facility] Anion Gap 12 7 - 16 mmol/L [facility] Calcium 9.2 8.8 - 10.2 mg/dL [facility] Glucose Lvl 90 82 - 100 mg/dL [facility] BUN 14 8 - 23 mg/dL [facility] Creatinine 0.91 0.51 - 1.30 mg/dL [facility] Albumin 3.6 3.2 - 4.6 gm/dL [facility] Total Protein 6.8 6.4 - 8.3 gm/dL [facility] Bili Total 0.5 0.1 - 1.3 mg/dL [facility] AST 14 <=40 IU/L [facility] ALT 17 <=41 IU/L [facility] Alk Phos 183(H) 35 - 104 IU/L [facility] GFR Afr Am >60 [facility] GFR Non Afr Am >60 [facility] Blood specimen (specimen) UPPER LIMB STRUCTURE / Unknown 10/18/2014 5:28 PM EDT 10/18/2014 5:58 PM EDT Marcio Parker MD CHEMISTRY ORDERABLES Edited Result - Final Performing Organization Address [facility] de Phone Number [facility] [address] [place] [address] * (ABNORMAL) CBC WITH AUTO DIFF (10/18/2014 5:28 PM EDT) [facility] WBC 8.4 4.0 - 11.0 x10(3)/mcL [facility] RBC 4.66 3.80 - 5.10 x10(6)/mcL [facility] Hgb 13.0 12.0 - 15.6 gm/dL [facility] Hct 40.4 35.7 - 45.9 % [facility] MCV 86.7 82.5 - 99.8 fL [facility] MCH 27.9 27.0 - 34.3 pg [facility] MCHC 32.2 32.1 - 35.3 gm/dL [facility] RDW 14.8 11.5 - 15.0 % [facility] Platelet 143(L) 144 - 423 x10(3)/mcL [facility] MPV 9.8 6.8 - 10.8 fL [facility] Blood specimen (specimen) UPPER LIMB STRUCTURE / Unknown 10/18/2014 5:28 PM EDT 10/18/2014 5:58 PM EDT Marcio Parker MD HEMATOLOGY ORDERABLES Final Result Performing Organization Address [facility] de Phone Number [facility] [address] [place] [address] * TROPONIN-T (10/18/2014 5:28 PM EDT) [facility] Troponin-T <0.01 <=0.02 ng/mL [facility] Comment: < 0.03 ?No detectable myocardial injury 0.03 - 0.10 ?? Possible myocardial injury ??> 0.10 ?Indicative of myocardial injury Blood specimen (specimen) 10/18/2014 5:28 PM EDT 10/18/2014 5:58 PM EDT Marcio Parker MD CHEMISTRY ORDERABLES Final Result Performing Organization Address [facility]/State/ZIP Co de Phone Number [facility] [address] [place] [address] * CT HEAD WO CONTRAST (10/18/2014 4:22 PM EDT) Anatomical Region Laterality Modality Head Computed Tomogra phy 10/18/2014 3:33 PM EDT Impressions 10/18/2014 4:26 PM EDT IMPRESSION: Chronic ischemic change with periventricular leukomalacia. No infarct, mass, hemorrhage or extra-axial fluid or blood collection. Narrative 10/18/2014 4:[address] HEAD WO CONTRAST 10/18/2014 at 1623 hours Clinical: 64-year-old female. Left leg weakness. Technical: 5 mm axial sections. No contrast. Compare: None FINDINGS: Ventricles normal in size and position. No mass, no mass effect, no hemorrhage, no infarct or extra-axial fluid or blood collection. Extensive periventricular leukomalacia. Procedure Note Shane Watkins MD - 10/18/2014 CT HEAD WO CONTRAST 10/18/2014 at 1623 hours Clinical: 64-year-old female. Left leg weakness. Technical: 5 mm axial sections. No contrast. Compare: None FINDINGS: Ventricles normal in size and position. No mass, no mass effect, no hemorrhage, no infarct or extra-axial fluid orblood collection. Extensive periventricular leukomalacia. IMPRESSION: Chronic ischemic change with periventricular leukomalacia. Noinfarct, mass, hemorrhage or extra-axial fluid or blood collection. us Marcio Parker MD IMG CT ORDERABLES Final Res ult * XR CHEST AP PORTABLE (10/18/2014 3:43 PM EDT) Anatomical Region Laterality Modality Chest Radiographic Wiht ging 10/18/2014 3:34 PM EDT Impressions 10/18/2014 3:51 PM EDT IMPRESSION: No acute findings Narrative 10/18/2014 3:51 PM EDT XR CHEST AP PORTABLE ?? EXAM DATE Oct 18, 2014 03:43:24 PM HISTORY: -Chest Pain Comparison: 08/29/2013 FINDINGS: Lungs are clear. There is unchanged mild to moderate cardiomegaly. There's no pleural fluid Procedure Note Marjan Bender MD - 10/18/2014 XR CHEST AP PORTABLE EXAM DATE Oct 18, 2014 03:43:24 PM HISTORY: -Chest Pain Comparison: 08/29/2013 FINDINGS: Lungs are clear. There is unchanged mild to moderate cardiomegaly. There'sno pleural fluid IMPRESSION: No acute findings us Marcio Parker MD IMG DIAGNOSTIC IMAGING [facility] Final Result * EK EKG 12 LEAD (10/18/2014 3:27 PM EDT) Anatomical Region Laterality Modality Other 10/18/2014 3:27 PM EDT Impressions 10/18/2014 6:53 PM EDT ? Stationary ECG Study ? [facility] ? Interpretive Statements ? Sinus rhythm with PVC(s) Leftward axis Inferior infarct - age undetermined Old anteroseptal infarct Low QRS voltages in precordial leads Abnormal ECG No change Electronically Signed On 10-18-2014 18:53:33 EDT by Abundio Marin MD Narrative Procedure Note Abundio Marin MD - 10/18/2014 IMPRESSION Stationary ECG Study [facility] Interpretive Statements Sinus rhythm with PVC(s) Leftward axis Inferior infarct - age undetermined Old anteroseptal infarct Low QRS voltages in precordial leads Abnormal ECG No change Electronically Signed On 10-18-2014 18:53:33 EDT by Abundio Marin MD Marcio Parker MD IMG ECG ORDERABLES Final Re sult * GLUCOSE METER POC (10/18/2014 3:25 PM EDT) [facility] Signature Glucose Meter POC 98 70 - 100 mg/dL [facility] Blood specimen (specimen) 10/18/2014 3:25 PM EDT 10/18/2014 3:25 PM EDT Marcio Parker MD POINT OF CARE TEST ORDERABL ES Final Result [facility] [address] [place] [address] documented in this encounter Visit Diagnoses Diagnosis Weakness of left leg- Primary Other musculoskeletal symptoms referable to limbs Weakness of left leg Other musculoskeletal symptoms referable to limbs Frequent falls Personal history of fall History of CVA (cerebrovascular accident) Transient ischemic attack (TIA), and cerebral infarction without residual deficits History of CVA (cerebrovascular accident) Transient ischemic attack (TIA), and cerebral infarction without residual deficits Frequent falls Personal history of fall Essential hypertension Unspecified essential hypertension Peripheral motor neuropathy Mononeuritis of unspecified site documented in this encounter Admitting Diagnoses Diagnosis Weakness of left leg Other musculoskeletal symptoms referable to limbs History of CVA (cerebrovascular accident) Transient ischemic attack (TIA), and cerebral infarction without residual deficits Frequent falls Personal history of fall documented in this encounter Administered Medications Inactive Administered Medications - up to 1 most recent administrations Medication Order MAR Action Action Date Dose Rate Site amitriptyline (ELAVIL) tablet 25 mg 25 mg, Oral, NIGHTLY, First dose on Wed10/19/14 at 2100, Until Discontinued Given 10/21/2014 8:36 PM EDT 25 mg amLODIPine (NORVASC) tablet 10 mg 10 mg, Oral, DAILY, First dose on 10/20/14 at 1015, Until Discontinued Given 10/22/2014 9:08 AM EDT 10 mg ARIPiprazole (ABILIFY) tablet 2 mg 2 mg, Oral, DAILY, First dose (after last modification) on Wed10/19/14 at 1000, Until Discontinued Given 10/22/2014 9:08 AM EDT 2 mg aspirin chewable tablet 81 mg 81 mg, Oral, DAILY, First dose on Wed10/20/14 at 1230, Until Discontinued Given 10/22/2014 9:08 AM EDT 81 mg diphenhydrAMINE (BENADRYL) tablet 25 mg 25 mg, Oral, NIGHTLY PRN, Starting on Wed10/18/14 at 2358, Until Wed10/22/14 at 1842, Sleep Given 10/21/2014 8:40 PM EDT 25 mg HYDROcodone-acetaminophen (NORCO) 5-325 mg per tablet 1-2 Tab 1-2 Tablet, Oral, EVERY 6 HOURS PRN, Starting on Wed10/18/14 at 2045, Until Wed10/22/14 at 1842, Pain, Begin with lowest dose unless otherwise directed. Reassess pain in one hour. If pain unrelieved, remainder of dose may be given to patient. Maximum adult dose of acetaminophen is 4000 mg from all sources in 24 hours. Given 10/22/2014 1:04 PM EDT 1 Tablet lisinopril (PRINIVIL;ZESTril) tablet 20 mg 20 mg, Oral, DAILY, First dose on Wed10/19/14 at 1000, Until Discontinued, +++ACEI Medication+++ Given 10/19/2014 11:15 AM EDT 20 mg lisinopril (PRINIVIL;ZESTril) tablet 40 mg 40 mg, Oral, DAILY, First dose (after last modification) on Wed10/20/14 at 1015, Until Discontinued, +++ACEI Medication+++ Given 10/22/2014 9:08 AM EDT 40 mg LORazepam (ATIVAN) injection 1 mg 1 mg, Intravenous, ONCE, 1 dose, On Wed10/19/14 at 1215, Give 30 minutes prior to MRI VESICANT Given 10/19/2014 1:28 PM EDT 1 mg miconazole (MICATIN) 2 % powder Topical, EVERY 12 HOURS SCHEDULED (2 times per day), First dose on Wed10/19/14 at 0115, Until Discontinued, Application site: ananya area/ under abdominal folds Given 10/22/2014 9:08 AM EDT roPINIRole (REQUIP) tablet 0.5 mg 0.5 mg, Oral, NIGHTLY, First dose (after last modification) on Wed10/19/14 at 2100, Until Discontinued Given 10/21/2014 8:37 PM EDT 0.5 mg venlafaxine (EFFEXOR-XR) XR capsule 150 mg 150 mg, Oral, DAILY, First dose on Wed10/19/14 at 0900, Until Discontinued Given 10/22/2014 9:08 AM EDT 150 mg zolpidem (AMBIEN) tablet 5 mg 5 mg, Oral, NIGHTLY PRN, Starting on 10/21/14 at 2329, Until 10/22/14 at 1842, Sleep Given 10/22/2014 1:16 AM EDT 5 mg documented in this encounter Discontinued Medications Medication Sig Discontinue Reason Start Date End Da te venlafaxine (EFFEXOR-XR) 150 mg Oral Capsule, Sust. Release 24 hr Take 150 mg by mouth daily. Stop Taking at Discharge 10/22/2014 hydrOXYzine (ATARAX) 50 mg Oral Tablet Take 50 mg by mouth every 6 hours as needed for Itching. Stop Taking at Discharge 10/22/2014 ARIPiprazole (ABILIFY) 20 mg Oral Tablet Take 20 mg by mouth 3 times daily. Stop Taking at Discharge 10/22/2014 documented as of this encounter Active and Recently Administered Medications Times are shown in EDT. Scheduled Medication Order 10/20/2014 10/21/2014 10/22/2014 amitriptyline (ELAVIL) tablet 25 mg 25 mg, Oral, NIGHTLY, First dose on Wed10/19/14 at 2100, Until Discontinued 2030 (Given - Provider: Ernie Bryan, ROLF) 2035 (Given - Provider: Alyx De La Cruz RN) amLODIPine (NORVASC) tablet 10 mg 10 mg, Oral, DAILY, First dose on Wed10/20/14 at 1015, Until Discontinued 3 (Given - Provider: Valeri Tobar, ROLF) 0819 (Given - Provider: Valeri Tobar, ROLF) 0908 (Given - Provider: Toma Beebe RN) ARIPiprazole (ABILIFY) tablet 2 mg 2 mg, Oral, DAILY, First dose (after last modification) on Wed10/19/14 at 1000, Until Discontinued 0848 (Given - Provider: Anna Roblero RN) 08 (Given - Provider: Valeri Tobar RN) 09 (Given - Provider: Toma Beebe, ROLF) aspirin chewable tablet 81 mg 81 mg, Oral, DAILY, First dose on Wed10/20/14 at 1230, Until Discontinued 1800 (Hold - Provider: Valeri Tobar RN - Reason: Patient/family declined) 08 (Given - Provider: Valeri Tobar RN) 09 (Given - Provider: Toma Beebe, ROLF) lisinopril (PRINIVIL;ZESTril) tablet 40 mg 40 mg, Oral, DAILY, First dose (after last modification) on Wed10/20/14 at 1015, Until Discontinued, +++ACEI Medication+++ 1023 (Given - Provider: Valeri Tobar RN) 08 (Given - Provider: Valeri Tobar RN) 907 (Given - Provider: Toma Beebe RN) miconazole (MICATIN) 2 % powder (CANCELED) Topical, EVERY 12 HOURS SCHEDULED (2 times per day), First dose on Wed10/19/14 at 0115, Until Discontinued, Application site: ananya area/ under abdominal folds 1026 (Given - Provider: Valeri Tobar RN)2029 (Given - Provider: Ernie Bryan, ROLF) 08 (Given - Provider: Valeri Tobar, ROLF)2035 (Given - Provider: Alyx De La Cruz, ROLF) 09 (Given - Provider: Toma Beebe, ROLF) roPINIRole (REQUIP) tablet 0.5 mg (CANCELED) 0.5 mg, Oral, NIGHTLY, First dose (after last modification) on Wed10/19/14 at 2100, Until Discontinued 2030 (Given - Provider: Ernie Bryan, RN) 2036 (Given - Provider: Alyx De La Cruz, ROLF) venlafaxine (EFFEXOR-XR) XR capsule 150 mg 150 mg, Oral, DAILY, First dose on Wed10/19/14 at 0900, Until Discontinued 0849 (Given - Provider: Anna Roblero RN) 0819 (Given - Provider: Valeri Tobar, ROLF) 0908 (Given - Provider: Toma Beebe, ROLF) PRN Medication Order 10/20/2014 10/21/2014 10/22/2014 diphenhydrAMINE (BENADRYL) tablet 25 mg (CANCELED) 25 mg, Oral, NIGHTLY PRN, Starting on Francine 10/18/14 at 2358, Until 10/22/14 at 1842, Sleep 0017 (Given - Provider: RUBEN Aggarwal)2040 (Given - Provider: Alyx De La Cruz, ROLF) HYDROcodone-acetaminophe n (NORCO) 5-325 mg per tablet 1-2 Tab 1-2 Tablet, Oral, EVERY 6 HOURS PRN, Starting on Francine 10/18/14 at 2045, Until 10/22/14 at 1842, Pain, Begin with lowest dose unless otherwise directed. Reassess pain in one hour. If pain unrelieved, remainder of dose may be given to patient. Maximum adult dose of acetaminophen is 4000 mg from all sources in 24 hours. 0431 (Given - Provider: Kasia Mendez RN)1235 (Given - Provider: Valeri Tobar, ROLF)1944 (Given - Provider: Ernie Bryan, ROLF) 0305 (Given - Provider: Ernie Bryan, ROLF)1420 (Given - Provider: Valeri Tobar, ROLF)2327 (Given - Provider: Alyx De La Cruz, ROLF) 1304 (Given - Provider: Toma Beebe, ROLF) zolpidem (AMBIEN) tablet 5 mg (CANCELED) 5 mg, Oral, NIGHTLY PRN, Starting on 10/21/14 at 2329, Until 10/22/14 at 1842, Sleep 0116 (Given - Provider: Alyx De La Cruz, ROLF) documented in this encounter Orders Medications Ordered That Gaurav ht Not Have Been Administered Count Last Ordered Date First Ordered Date hydrALAZINE (APRESOLINE) injection 5 mg 1 0 10/20/2014 ARIPiprazole (ABILIFY) tablet 2 mg 1 2014 ARIPiprazole (ABILIFY) tablet 20 mg 1 10/18 HYDROcodone-acetaminophen (N ORCO) 5-325 mg per tablet 1 Tab 1 10/18/2014 miconazole (MICATIN) 2 % powder 1 5 ondansetron (ZOFRAN) 4 mg/2 mL injection 4 mg 1 10/18/2014 ondansetron (ZOFRAN) tablet 4 mg 1 10/19/19 15 pneumococcal vaccine (PNEUMO VAX 23) injection 0.5 mL 1 10/18/2014 roPINIRole (REQUIP) tablet 0.5 mg 1 015 Nursing Count Last Ordered Date First Orde red Date ADMISSION 2 10/18/2014 CHECK TEMPERATURE 1 10/18/2014 ED ENTER ADMISSION ORDER 1 10/18/2014 FINGERSTICK BLOOD SUGAR 1 10/18/2014 NEUROLOGICAL CHECKS 2 10/18/2014 TURN PATIENT 1 10/18/2014 VITAL SIGNS 1 10/18/2014 Consult Count Last Ordered Date First Orde red Date IP CONSULT TO NEUROSURGERY 1 10/20/2014 IP CONSULT TO NEUROLOGY 1 10/19/2014 IP CONSULT TO SOCIAL WORK 1 10/18/2014 Nourishments Count Last Ordered Date First Orde red Date ADVANCE DIET TOLERATED 1 10/18/2014 OT Count Last Ordered Date First Orde red Date IP CONSULT TO OCCUPATIONAL THERAPY 1 2014 PT Count Last Ordered Date First Orde red Date IP CONSULT TO PHYSICAL THERAPY 2 10/19/2014 10/18/2014 Respiratory Care Count Last Ordered Date First Ordered Date OXYGEN THERAPY 1 10/18/2014 Transfer Count Last Ordered Date First Orde red Date BED REQUEST 2 10/18/2014 Discharge Count Last Ordered Date First Orde red Date DISCHARGE PATIENT 1 10/22/2014 documented in this encounter Care Teams Hot Punch Press Operator Relationship Specialty Start Date End Date Uriel Alessandra August, [address] [facility] [address] [place] [address] PCP - General Nurse Practitioner-Family 08/29/14 09/20/16 documented as of this encounter
--- OUTSIDE RECORDS SUMMARY | 2024-02-16 15:03 | XMS_ITS | Encounter Summary ---
Author Organization [place] [address] Care Team Providers Care Field Support Technician Name Role Phone Alessandra Trevino August Primary Care Provider + Reason for Visit * Auth/Cert/Inpt Specialty Diagnoses / Procedures Referred By Arsh patel Referred To Contact Diagnoses Chest pain, unspecified chest pain type Anemia, unspecified anemia type Referral ID Status Reason Start Date Expiration Date Visits Re quested Visits Authorized [id number] 1 1 Encounter Details Date Type Department Care Team (Late st Contact Info) Description 04/03/2015 12:18 PM EST Anesthesia Event [facility] [address] [place] [address] Rod Hester MD [address] [place] [id number] Anesthesia Record Procedure Summary Procedure Name Responsible Anesthesiologist Anesthesia Start Time Anesthesia Stop Time ESOPHAGOGASTRODUODENOSCOPY Rod Hester MD 1218 04/03/15 1237 Events Date Time Event Comment 04/03/2015 1209 1218 AN Equip Check 1218 An Start 1218 An Start Data 1220 Immediate Pre Anesthetic Ass es 1225 Incision 1230 an stop data 1237 Handoff I completed my SBAR handoff to the receiving nurse which have included the followin. Identification of the patient, family, or patient surrogate 2. Identification of the responsible practitioner 3. Pertinent medical history 4. Surgical procedure and reason for procedure 5. Intraoperative anesthetic management 6. Expectations/Plans for the early post-procedure period 7. Opportunity for questions and acknowledgement of understanding from the receiving PACU/ICU steam table worker 1237 An Stop Meds Name Total propofol (DIPRIVAN) injection 70 mg 0.9 % NaCl infusion 300 mL * Agents Name O2 * Blood No blood administrations on file. Lines, Drains, and Airways Type Details Placement Removal Wound 04/01/15; 1849; Diabetic ulcer; Toe (Comment which one) (big toe); Left, Lateral; great; Yes; 04/04/15; 1730 04/01/15 1850 by Janina Escamilla APRN 04/04/15 173 by Discharge Provider, Automatic Peripheral IV 04/02/15; 220; 04/06/15; 22; Right; Thalia Olmos RN; 3; None; 04/04/15; 1730; No 04/02/152202 by Kamryn Olmos RN 04/04/151729 by Discharge Provider, Automatic documented in this encounter Social History Tobacco [...] OR Notes * Anesthesia Postprocedure Evaluation - Rod Hester MD - 04/03/2015 1:33 PM EST Post-Anesthesia Evaluation Note Patient Name: Faby Palm Patient Date: April 03, 2015 Patient Location: PACU (endo) Post OP Vitals: stable Level of Consciousness: awake, alert and oriented Post Anesthesia Pain: adequate analgesia Long Acting Local Anesthetic: n/a Airway Patency: patent Difficult Airway: no Respiratory: spontaneous ventilation Cardiovascular: stable and BP within 20% of baseline Hydration: euvolemic Nausea Controlled: yes * Anesthesia Preprocedure Evaluation - Rod Hester MD - 04/03/2015 12:07 PM EST Pre-Anesthesia Evaluation Note Patient Name: Faby Palm Sex: female Patient : 1950 Age: 64 y.o. Patient Date: April 03, 2015 Procedure: ESOPHAGOGASTRODUODENOSCOPY (N/A ) Anesthesia Evaluation Patient summary reviewed Airway Mallampati: III TM distance: >3 FB Neck ROM: fullNo increased risk of difficult airway Dental (+) edentulous Pulmonary breath sounds clear to auscultation (+)COPD, decreased breath sounds, Cardiovascular (+) hypertension, CHF, , Rhythm: regular Rate: normal Neuro/Psych (+) CVA, Comments: rls GI/Hepatic/Renal Endo/Other (+) diabetes mellitus, anemia, Current Anesthesia Plan ASA 3 Anesthesia Plan: MAC Intravenous induction Monitors: STD Anesthetic plan and risks discussed with patient. documented in this encounter Plan of Treatment Not on file documented as of this encounter Visit Diagnoses Not on filedocumented in this encounter Administered Medications Inactive Administered Medications - up to 1 most recent administrations Medication Order MAR Action Action Date Dose Rate Site 0.9 % NaCl infusion CONTINUOUS PRN, Starting on Wed04/03/15 at 1218, Until Wed04/03/15 at 1237, Anesthesia Intra-op New Bag 04/03/2015 12:18 PM EST propofol (DIPRIVAN) injection Intravenous, PRN, Starting on Wed04/03/15 at 1223, Until Wed04/03/15 at 1237, Anesthesia Intra-op Given 04/03/2015 12:25 PM EST 20 mg documented in this encounter Care Teams Field Support Technician Relationship Specialty Start Date End Date Alessandra Trevino August, [address] [facility] [address] [place] [phone] PCP - General Nurse Practitioner-Family 08/29/14 09/20/16 documented as of this encounter
--- OUTSIDE RECORDS SUMMARY | 2024-02-16 15:03 | XMS_ITS | Encounter Summary ---
Author Organization [place] [address] Care Team Providers Care Cascara Bark Cutter Name Role Phone Alessandra Trevino August Primary Care Provider + Reason for Visit * Reason Comments Extremity Weakness Pt to er by ems with c/o left leg weakness and pt was unable to get out of her chair for about an hour and a half last pm. upon arrival to scene pt was up walking and patients feet were swollen around her shoes. left worse than right. Swelling has subsided after ems removed her shoes. Pt is alert and oriented during triage. Encounter Details Date Type Department Care Team (Late st Contact Info) Description 08/29/2014 11:14 AM EDT - 08/29/2014 5:14 PM EDT Emergency [facility] Emergency [address] [place] [address] Anthony Fish MD [address] [place] [id number] Peripheral edema (Primary Dx) Discharge Disposition: Home or Self [...] Sign Reading Time Taken Comments Blood Pressure 146/69 08/29/2014 2:04 PM EDT Pulse 57 08/29/2014 2:04 PM EDT Temperature 36.3 ??C (97.4 ??F) 08/29/2014 11:19 AM E DT Respiratory Rate 17 08/29/2014 2:04 PM EDT Oxygen Saturation 95% 08/29/2014 11:19 AM EDT Inhaled Oxygen Concentration - - Weight 101.6 kg (224 lb) 08/29/2014 11:19 AM EDT Height 174 cm (5' 8.5 ) 08/29/2014 11:19 AM EDT Body Mass Index 33.56 08/29/2014 11:19 AM EDT documented in this encounter Discharge Instructions * Attachments The following attachments cannot be sent through Care Everywhere. * PERIPHERAL EDEMA (AMHARIC) documented in this encounter Medications at Time of Discharge ARIPiprazole (ABILIFY) 20 mg Oral Tablet Take 20 mg by mouth 3 times daily. 10/22/2014 hydrOXYzine (ATARAX) 50 mg Oral Tablet Take 50 mg by mouth every 6 hours as needed for Itching. 10/22/2014 venlafaxine (EFFEXOR-XR) 150 mg Oral Capsule, Sust. Release 24 hr Take 150 mg by mouth daily. 10/22/2014 documented as of this encounter Discharge Disposition Disposition Code Departure Means Destination Home or Self Senior Living documented in this encounter ED Notes * Anthony Fish MD - 08/29/2014 12:17 PM EDT Chief Complaint Patient presents with ??? Extremity Weakness Pt to er by ems with c/o left leg weakness and pt was unable to get out of her chair for about an hour and a half last pm. upon arrival to scene pt was up walking and patients feet were swollen around her shoes. left worse than right. Swelling has subsided after ems removed her shoes. Pt is alert and oriented during triage. HPI Comments: Patient is a 64-year-old female who presents to emergency department with left lower extremity edema and weakness for the last several days. States she has difficulties ambulating and getting up and down from a seated position due to this weakness. She denies any weakness in her extremities and denies any headache or facial droop. 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 She is currently living at a mental health facility in [place]. Per report, she is unable to get out of the chair last night and therefore sent in the same position for an extended amount of time. The history is provided by the patient. Allergies Allergen Reactions ??? Compazine [Prochlorperazine Edisylate] ??? Loa ??? Talwin [Pentazocine Lactate] Home Medications: Prior to Admission medications Medication Sig Start Date End Date Taking? Authorizing Provider ARIPiprazole (ABILIFY) 20 mg Oral Tablet Take 20 mg by mouth daily. Yes Provider, Historical hydrOXYzine (ATARAX) 50 mg Oral Tablet Take 50 mg by mouth every 6 hours as needed for Itching. YesProvider, Historical venlafaxine (EFFEXOR-XR) 150 mg Oral Capsule, Sust. Release 24 hr Take 150 mg by mouth daily. Yes Provider, Historical roPINIRole (REQUIP) 0.5 mg Oral Tablet Take 0.5 mg by mouth 3 times daily. Yes Provider, Historical Past Medical History: Past Medical History Diagnosis Date ??? COPD (chronic obstructive pulmonary disease) ??? DDD (degenerative disc disease) ??? CHF (congestive heart failure) ??? Diabetes mellitus ??? Hypertension ??? Yeast infection recurrent ??? Suicide attempt Social History: reports that she has never [...] surgery Review of Systems Constitutional: Negative for fever and chills. HENT: Negative. Eyes: Negative. Respiratory: Negative for cough and shortness of breath. Cardiovascular: Negative for chest pain, palpitations and leg swelling. Gastrointestinal: Negative for nausea, vomiting, abdominal pain and diarrhea. Genitourinary: Negative for dysuria and frequency. Musculoskeletal: Negative. Skin: Negative for rash. Neurological: Positive for weakness. Negative for seizures, speech difficulty, light-headedness andnumbness. Psychiatric/Behavioral: Negative. All other systems reviewed and are negative. Blood pressure 168/95, pulse 60, temperature 97.4 ??F (36.3 ??C), temperature source Oral, resp. rate 20, height 5' 8.5 (1.74 m), weight 224 lb (101.606 kg), SpO2 95 %. Physical Exam Constitutional: [...] is no tenderness. Musculoskeletal: She exhibits edema. She exhibits no tenderness. 1+ pitting edema in LLE. No pain, -Cortney's, no palpable cords, no warmth or erythema Lymphadenopathy: She has no cervical adenopathy. Neurological: She is alert and oriented to person, place, and time. No cranial nerve deficit. Skin: Skin is warm and dry. No rash noted. Psychiatric: She has a normal mood and affect. Nursing note and vitals reviewed. Procedures Radiology/EKG/Labs: Results for orders placed or performed during the hospital encounter of 08/29/14 XR CHEST PA AND LATERAL Narrative TWO-VIEW CHEST, 08/29/2014 at 1301 HISTORY: Congestion and leg weakness. FINDINGS: Comparison none. Heart size is mildly enlarged. The lungs are clear. Impression IMPRESSION: No acute disease. CBC WITH AUTO DIFF Result Value Ref Range WBC 6.3 4.0 - 11.0 x10(3)/mcL RBC 4.74 3.80 - 5.10 x10(6)/mcL Hgb 13.4 12.0 - 15.6 gm/dL Hct 41.2 35.7 - 45.9 % MCV 86.8 82.5 - 99.8 fL MCH 28.2 27.0 - 34.3 pg MCHC 32.5 32.1 - 35.3 gm/dL RDW 14.0 11.5 - 15.0 % Platelet 152 144 - 423 x10(3)/mcL MPV 9.8 6.8 - 10.8 fL COMPREHENSIVE METABOLIC PANEL Result Value Ref Range Sodium 144 136 - 145 mmol/L Potassium 4.1 3.5 - 5.0 mmol/L Chloride 107 98 - 107 mmol/L Total CO2 26 22 - 29 mmol/L Anion Gap 11 7 - 16 mmol/L Calcium 8.8 8.8 - 10.2 mg/dL Glucose Lvl 107 (H) 82 - 100 mg/dL BUN 14 8 - 23 mg/dL Creatinine 0.92 0.51 - 1.30 mg/dL Albumin 3.9 3.2 - 4.6 gm/dL Total Protein 7.1 6.4 - 8.3 gm/dL Bili Total 0.4 0.1 - 1.3 mg/dL AST 17 <=40 IU/L ALT 17 <=41 IU/L Alk Phos 182 (H) 35 - 104 IU/L GFR Afr Am >60 GFR Non Afr Am >60 D-DIMER Result Value Ref Range D-Dimer <230 <=230 ng/mL D-DU NT PROBNP Result Value Ref Range NT Pro-BNP 82 <=319 pg/mL TROPONIN-T Result Value Ref Range Troponin-T <0.01 <=0.02 ng/mL DIFFERENTIAL Result Value Ref Range Neut Percent 52.6 % Lymph Percent 37.2 % Cottle Percent 6.5 % Eos Percent 2.7 % Baso Percent 1.0 % Neut# 3.3 1.8 - 7.7 x10(3)/mcL Lymph# 2.3 0.6 - 4.8 x10(3)/mcL Cottle# 0.4 0.0 - 1.3 x10(3)/mcL Eos# 0.2 0.0 - 0.5 x10(3)/mcL Baso# 0.1 0.0 - 0.2 x10(3)/mcL EK EKG 12 LEAD Narrative NOTICE: Preliminary tracing available for review; Final Interpretation by physician to follow. Impression Stationary ECG Study [facility] Interpretive Statements SINUS BRADYCARDIA MODERATE VOLTAGE CRITERIA FOR LVH, CONSIDER NORMAL VARIANT POSSIBLE ANTERIOR MYOCARDIAL INFARCTION, OF INDETERMINATE AGE INFERIOR MYOCARDIAL INFARCTION, PROBABLY OLD EKG: Sinus bradycardia at a rate of 57. Q waves in the anterior leads. No comparison available. ED Course: Appropriate laboratory and radiology studies reviewed Patient does have 1+ pitting edema in the left lower extremity but no appreciable neurologic deficits. Sensation is intact and she is moving her extremities without difficulty. She was also seen ambulating by EMS. I suspect that her symptoms are related to the fact that she was stuck in a chair for prolonged amount of time and may have had some mild nerve and vein compression resulting in mild edema and paresthesias. However, there is no reason to suspect CVA as she has no symptoms in her extremities or face, she is able to ambulate and sensation is completely intact. D-dimer is negative and she has no pain or tenderness on examination, so no DVT or cellulitis. Lastly, BMP is normal and chest x-ray is unremarkable with no pulmonary edema. ED Clinical Impression: Peripheral edema (primary encounter diagnosis) Critical Care time Condition at Discharge/Transfer from Department: Stable This chart was completed using voice recognition technology and may contain unintended errors Anthony Fish MD 08/29/14 1333 documented in this encounter Plan of Treatment Not on file documented as of this encounter Procedures Procedure Name Priority Date/Time Associated Diagnosis Comments XR CHEST PA AND LATERAL STAT 08/29/2014 1:08 PM EDT EK EKG 12 LEAD STAT 08/29/2014 12:30 PM EDT TROPONIN-T STAT 08/29/2014 12:20 PM EDT DIFFERENTIAL STAT 08/29/2014 12:20 PM EDT D-DIMER STAT 08/29/2014 12:20 PM EDT CBC WITH DIFF STAT 08/29/2014 12:20 PM EDT NT PROBNP STAT 08/29/2014 12:20 PM EDT COMPREHENSIVE METABOLIC PANEL STAT 08/29/2014 12:20 PM EDT documented in this encounter Results * XR CHEST PA AND LATERAL (08/29/2014 1:08 PM EDT) Anatomical Region Laterality Modality Chest Radiographic Whit ging 08/29/2014 12:1 7 PM EDT Impressions 08/29/2014 1:11 PM EDT IMPRESSION: No acute disease. Narrative 08/29/2014 1:11 PM EDT TWO-VIEW CHEST, 08/29/2014 at 1301 HISTORY: Congestion and leg weakness. FINDINGS: Comparison none. Heart size is mildly enlarged. The lungs are clear. Procedure Note Luis E Wayne MD - 08/29/2014 TWO-VIEW CHEST, 08/29/2014 at 1301 HISTORY: Congestion and leg weakness. FINDINGS: Comparison none. Heart size is mildly enlarged. The lungs are clear. IMPRESSION: No acute disease. us Anthony Fish MD IMG DIAGNOSTIC IMAGI NG ORDERABLES Final Result * EK EKG 12 LEAD (08/29/2014 12:30 PM EDT) Anatomical Region Laterality Modality Other 08/29/2014 12:3 0 PM EDT Impressions 08/29/2014 5:24 PM EDT ? Stationary [facility] ? [facility] ? Interpretive Statements ? SINUS BRADYCARDIA LEFT VENTRICULAR HYPERTROPHY WITH ST-T CHANGES POSSIBLE ANTERIOR MYOCARDIAL INFARCTION, OF INDETERMINATE AGE INFERIOR MYOCARDIAL INFARCTION, PROBABLY OLD ABNORMAL ECG Electronically Signed On 2014-08-29 17:24:09 EDT by Abundio Marin MD Narrative Procedure Note Abundio Marin MD - 08/29/2014 IMPRESSION Stationary ECG Study [facility] Interpretive Statements SINUS BRADYCARDIA LEFT VENTRICULAR HYPERTROPHY WITH ST-T CHANGES POSSIBLE ANTERIOR MYOCARDIAL INFARCTION, OF INDETERMINATE AGE INFERIOR MYOCARDIAL INFARCTION, PROBABLY OLD ABNORMAL ECG Electronically Signed On 2014-08-29 17:24:09 EDT by Abundio Marin MD us Anthony Fish MD IMG ECG ORDERABLES F inal Result * DIFFERENTIAL (08/29/2014 12:20 PM EDT) Pathologist [facility] Neut Percent 52.6 % [facility] Lymph Percent 37.2 % [facility] Cottle Percent 6.5 % [facility] Eos Percent 2.7 % [facility] Baso Percent 1.0 % [facility] Neut# 3.3 1.8 - 7.7 x10(3)/mcL [facility] Lymph# 2.3 0.6 - 4.8 x10(3)/mcL [facility] Cottle# 0.4 0.0 - 1.3 x10(3)/mcL [facility] Eos# 0.2 0.0 - 0.5 x10(3)/mcL [facility] Baso# 0.1 0.0 - 0.2 x10(3)/mcL [facility] Blood specimen (specimen) 08/29/2014 12:20 PM EDT 08/29/2014 12:26 PM EDT us Anthony Fish MD HEMATOLOGY ORDERABLE S Final Result [facility] [address] [place] [address] * TROPONIN-T (08/29/2014 12:20 PM EDT) [facility] Troponin-T <0.01 <=0.02 ng/mL [facility] Comment: < 0.03 ?No detectable myocardial injury 0.03 - 0.10 ?? Possible myocardial injury ??> 0.10 ?Indicative of myocardial injury Blood specimen (specimen) 08/29/2014 12:20 PM EDT 08/29/2014 12:26 PM EDT Anthony Fish MD CHEMISTRY ORDERABLES Final Result Performing Organization Address [facility] de Phone Number [facility] [address] [place] [address] * NT PROBNP (08/29/2014 12:20 PM EDT) NT Pro-BNP 82 <=319 pg/mL [facility] Comment: An NT pro-BNP level less than 300 pg/mL in any patient, regardless of age, Effectively rules out acute CHF with a 99% negative predictive value. Blood specimen (specimen) UPPER LIMB STRUCTURE / Unknown 08/29/2014 12:20 PM EDT 08/29/2014 12:26 PM EDT Anthony Fish MD CHEMISTRY ORDERABLES Final Result Performing Organization Address [facility] de Phone Number [facility] [address] [place] [address] * D-DIMER (08/29/2014 12:20 PM EDT) D-Dimer <230 <=230 ng/mL D-DU [facility] Comment: This test has been clinically validated by the software sales manager and approved by the FDA for exclusion [...] specimen (specimen) UPPER LIMB STRUCTURE / Unknown 08/29/2014 12:20 PM EDT 08/29/2014 12:26 PM EDT Anthony Fish MD HEMATOLOGY ORDERABLE S Final Result Performing Organization Address [facility] Co de Phone Number [facility] [address] [place] [address] * (ABNORMAL) COMPREHENSIVE METABOLIC PANEL (08/29/2014 12:20 PM EDT) Pathologist [facility] Sodium 144 136 - 145 mmol/L [facility] Potassium 4.1 3.5 - 5.0 mmol/L [facility] Chloride 107 98 - 107 mmol/L [facility] Total CO2 26 22 - 29 mmol/L [facility] Anion Gap 11 7 - 16 mmol/L [facility] Calcium 8.8 8.8 - 10.2 mg/dL [facility] Glucose Lvl 107(H) 82 - 100 mg/dL [facility] BUN 14 8 - 23 mg/dL [facility] Creatinine 0.92 0.51 - 1.30 mg/dL [facility] Albumin 3.9 3.2 - 4.6 gm/dL [facility] Total Protein 7.1 6.4 - 8.3 gm/dL [facility] Bili Total 0.4 0.1 - 1.3 mg/dL [facility] AST 17 <=40 IU/L [facility] ALT 17 <=41 IU/L [facility] Alk Phos 182(H) 35 - 104 IU/L [facility] GFR Afr Am >60 [facility] GFR Non Afr Am >60 [facility] Blood specimen (specimen) UPPER LIMB STRUCTURE / Unknown 08/29/2014 12:20 PM EDT 08/29/2014 12:26 PM EDT Anthony Fish MD CHEMISTRY ORDERABLES Edited Result - Final Performing Organization Address [facility]/ZIP Co de Phone Number [facility] [address] [place] [address] * CBC WITH AUTO DIFF (08/29/2014 12:20 PM EDT) Pathologist [facility] WBC 6.3 4.0 - 11.0 x10(3)/mcL [facility] RBC 4.74 3.80 - 5.10 x10(6)/mcL [facility] Hgb 13.4 12.0 - 15.6 gm/dL [facility] Hct 41.2 35.7 - 45.9 % [facility] MCV 86.8 82.5 - 99.8 fL [facility] MCH 28.2 27.0 - 34.3 pg [facility] MCHC 32.5 32.1 - 35.3 gm/dL [facility] RDW 14.0 11.5 - 15.0 % [facility] Platelet 152 144 - 423 x10(3)/mcL [facility] MPV 9.8 6.8 - 10.8 fL [facility] Blood specimen (specimen) UPPER LIMB STRUCTURE / Unknown 08/29/2014 12:20 PM EDT 08/29/2014 12:26 PM EDT us Anthony iFsh MD HEMATOLOGY ORDERABLE S Final Result [facility] [address] [place] [address] documented in this encounter Visit Diagnoses Diagnosis Peripheral edema- Primary Edema documented in this encounter Historical Medications * This list may reflect changes made after this encounter. roPINIRole (REQUIP) 0.5 mg Oral Tablet Take 1.5 mg by mouth nightly. 11/26/2016 venlafaxine (EFFEXOR-XR) 150 mg Oral Capsule, Sust. Release 24 hr Take 150 mg by mouth daily. 10/22/2014 hydrOXYzine (ATARAX) 50 mg Oral Tablet Take 50 mg by mouth every 6 hours as needed for Itching. 10/22/2014 ARIPiprazole (ABILIFY) 20 mg Oral Tablet Take 20 mg by mouth 3 times daily. 10/22/2014 added in this encounter Orders Nourishments Count Last Ordered Date First Orde red Date DIET MESSAGE 1 08/29/2014 documented in this encounter Care Teams Cascara Bark Cutter Relationship Specialty Start Date End Date Alessandra Trevino August,N [address] [facility] [address] [place] [phone] PCP - General Nurse Practitioner-Family 08/29/14 09/20/16 documented as of this encounter
--- OUTSIDE RECORDS SUMMARY | 2024-02-16 15:04 | XMS_ITS | Encounter Summary ---
Author Organization Healthcare Address [address] [id number] Care Team Providers Care Brake Liner Name Role Phone Unavailable Primary Care Provider Unavailabl e Encounter Details Date Type Department Care Team (Late st Contact Info) Description 02/12/2020 [facility] Encounter HISTORICAL OPHTHALMOLOGY [address] [place] [address] Beni Simmons MD [address] [place] [phone] Social History Tobacco Use Types Packs/Day Years Used Date Smoking Tobacco: Never Assessed Comments Unknown Sex and Gender Information Value Date Recorded Sex Assigned at Not on file Legal Sex Female 7:28 PM EDT Gender Identity Not on file Sexual Orientation Not on file documented as of this encounter Plan of Treatment Not on file documented as of this encounter Visit Diagnoses Not on filedocumented in this encounter
--- OUTSIDE RECORDS SUMMARY | 2024-02-16 15:04 | XMS_ITS | Encounter Summary ---
Author Organization Healthcare Address [address] [place] [address] Care Team Providers Care Administration Physician Name Role Phone Marcio Rodriguez MD Primary Care Provider [phone] Encounter Details Date Type Department Care Team (Latest Contact Info) Description 08/29/2021 Travel Social History Tobacco Use Types Packs/Day [...] suspected to have Coronavirus/COVID-19? No / Unsure 08/29/2021 8:54 AM EDT documented as of this encounter Plan of Treatment Not on file documented as of this encounter Visit Diagnoses Not on filedocumented in this encounter Additional Health Concerns Assessment Noted Time A fall risk assessment has been complete d for the patient 08/29/2021 10:31 AM EDT documented as of this encounter Care Teams Administration Physician Relationship Specialty Start Date End Date Marcio Rodriguez MD [address] [place] [address] PCP - General 07/19/20 documented as of this encounter
--- OUTSIDE RECORDS SUMMARY | 2024-02-16 15:04 | XMS_ITS | Encounter Summary ---
Author Organization Healthcare Address [address] [id number] Care Team Providers Care Advanced Developer Name Role Phone Marcio Rodriguez MD Primary Care Provider [phone] Reason for Visit * Reason Comments Follow-up Encounter Details Date Type Department Care Team ([facility] st Contact Info) Description 08/29/2021 9:30 AM EDT Office Visit Medical Office Building [facility] [address], [address] [place] [address] Renata Cuellar, BOOK SHELVER [address] [place] [address] Pain due to total left knee replacement, initial encounter ([facility]) (Primary Dx) Social History Tobacco Use Types [...] AM EDT documented as of this encounter Last Filed Vital Signs Vital Sign Reading Time Taken Comments Blood Pressure 129/66 08/29/2021 10:29 AM EDT Pulse - - Temperature - - Respiratory Rate - - Oxygen Saturation - - Inhaled Oxygen Concentration - - Weight 99.8 kg (220 lb) 08/29/2021 10:29 AM EDT Height 172.7 cm (5' 8 ) 08/29/2021 10:29 AM EDT Body Mass Index 33.45 08/29/2021 10:29 AM EDT documented in this encounter Miscellaneous Notes * Progress Notes - Renata Cuellar, BOOK SHELVER - 08/29/2021 9:30 AM EDT CHIEF COMPLAINT: Left knee pain HISTORY OF PRESENT ILLNESS: 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 Six months ago she began having severe left knee pain which has continued to worsen overtime. She reports that her mobility continues to be limited. She ambulates with a walker but is only able to do so for short distances typically less than 50 ft. She is a skilled nursing resident and has to have care getting out of bed. She is here today in a wheelchair. She was previously told that the left knee was infected. She had multiple labs and a bone scan. She brought a disc in with her today but the disc only showed an x-ray PAST MEDICAL HISTORY: Reviewed PAST SURGICAL HISTORY: Reviewed MEDICATIONS: Reviewed ALLERGIES: no known drug allergies SOCIAL HISTORY: Current daily smoker, half a pack per day alcohol use occasional, and history of marijuana FAMILY HISTORY: Reviewed REVIEW OF SYSTEMS: A 14 point review of systems was completed by the patient on intake sheet and positive for the items mentioned in the above history of present illness. PHYSICAL EXAM: General: Alert and oriented and in no acute distress, speech is easily understandable, answers all questions appropriately. Skin: Appropriate for ethnicity, warm, dry, no abnormal skin changes. HEENT: Normocephalic, atraumatic, extraoccular movements intact Lymphatics: No lymphadenopathy Cardiopulmonary: Regular rate by palpation, equal chest expansion, no respiratory difficulty on room air Extremities: Extremities warm and well perfused Musculoskeletal: Pathology limited to the, no abnormal skin changes, no palpable masses, no tenderness to palpation, distal circulation motor and sensation intact, muscle strength 5 out of 5, ROM: 10-90, no redness or swelling IMAGING: Left knee x-ray reviewed and shows stable hardware ASSESSMENT: Painful left total knee PLAN: She had previously been told that the knee was infected and the previous surgeon's sent her here so that someone could ???fix it?? unfortunately today and was not able to review the bone scan as she only brought in the x-rays and there was no lab results available for review. She is a resident of a skilled nursing the caregiver that is with her today states that they would likely be able to obtain new lab work from the skilled nursing if they are unable to bring her lab work results with her at her next follow-up. Follow-up scheduled in [address] Brown for evaluation of possible left total knee infection so that he can review labs and bone scan which were not available during her visit today. ?? documented in this encounter Plan of Treatment Not on file documented as of this encounter Visit Diagnoses Diagnosis Pain due to total left knee replacement, initial encounter ([facility])- Primary documented in this encounter Additional Health Concerns Assessment Noted Time A fall risk assessment has been complete d for the patient 08/29/2021 10:31 AM EDT documented as of this encounter Care Teams Advanced Developer Relationship Specialty Start Date End Date Marcio Rodriguez MD [address] [place] [address] PCP - General 07/19/20 documented as of this encounter
--- OUTSIDE RECORDS SUMMARY | 2024-02-16 15:04 | XMS_ITS | Encounter Summary ---
Author Organization Healthcare Address [address] [id number] Care Team Providers Care Construction Consultant Name Role Phone Unavailable Primary Care Provider Unavailabl e Encounter Details Date Type Department Care Team (Late st Contact Info) Description 05/01/2020 [facility] Encounter HISTORICAL OPHTHALMOLOGY [address] [place] [address] Beni Simmons MD [address] [address] Social History Tobacco Use Types Packs/Day Years Used Date Smoking Tobacco: Never Comments Unknown Sex and Gender Information Value Date Recorded Sex Assigned at Not on file Legal Sex Female 7:28 PM EDT Gender Identity Not on file Sexual Orientation Not on file documented as of this encounter Plan of Treatment Not on file documented as of this encounter Visit Diagnoses Not on filedocumented in this encounter
--- OUTSIDE RECORDS SUMMARY | 2024-02-16 15:04 | XMS_ITS | Encounter Summary ---
Author Organization Healthcare Address [address] [id number] Care Team Providers Care Model Engine Mechanic Name Role Phone Marcio Rodriguez MD Primary Care Provider [phone] Reason for Visit * Reason Comments Pain Encounter Details Date Type Department Care Team ([facility] st Contact Info) Description 09/09/2021 9:20 AM EDT Office Visit Medical Office Building [facility] [address] [facility], [address] [place] [address] Thong Brown MD [address] [place] [address] Pain due to total left knee replacement, initial encounter ([facility]) (Primary Dx) Social History Tobacco Use Types [...] Mass Index 33.75 09/09/2021 9:21 AM EDT documented in this encounter Miscellaneous Notes * Progress Notes - Renata Cuellar APRN - 09/09/2021 9:20 AM EDT CHIEF COMPLAINT:?Left knee pain HISTORY OF PRESENT ILLNESS:?Followup from 2 weeks ago bilateral total knee replacements left knee replaced over 10 years ago. ??Six months ago she began having severe left knee pain which has continued to worsen over time and is unchanged since her last visit. ??She reports continued to be limited. ??She ambulates with a walker but is only able to do so for short distances typically less than 50 ft. ??She is a long-term resident and has to have care getting out of bed. ??She is here todayin a wheelchair. ??She was previously told that the left knee was infected. ??She had multiple labsand a bone scan. She brought her labs results w/ her today . PHYSICAL EXAM: General: Alert and oriented and [...] intact, muscle strength 5 out of 5, ??ROM: 10-90,??no redness or swelling IMAGING:?Left knee x-ray reviewed and shows stable hardware and no signs of infection ASSESSMENT:?Painful left total knee PLAN:?Labs reviewed along w/ xray. No indications of infection, PT for quad strengthening, new rx given and followup prn?? Cosigned by Thong Brown MD at 09/09/2021 10:12 AM EDT Associated attestation - Thong Brown MD - 09/09/2021 10:12 AM EDT Signature Only documented in this encounter Plan of Treatment Not on file documented as of this encounter Visit Diagnoses Diagnosis Pain due to total left knee replacement, initial encounter ([facility])- Primary documented in this encounter Additional Health Concerns Assessment Noted Time A fall risk assessment has been complete d for the patient 09/09/2021 9:23 AM EDT documented as of this encounter Care Teams Model Engine Mechanic Relationship Specialty Start Date End Date Marcio Rodriguez MD [address] [place] [address] PCP - General 07/19/20 documented as of this encounter
--- OUTSIDE RECORDS SUMMARY | 2024-02-16 15:04 | XMS_ITS | Encounter Summary ---
Author Organization Healthcare Address [address] [id number] Care Team Providers Care Lap Runner Name Role Phone Marcio Rodriguez MD Primary Care Provider [phone] Encounter Details Date Type Department Care Team (Late st Contact Info) Description 10/21/2020 [facility] [address] [place] [address] Beni Simmons MD [address] [address] Social History Tobacco Use Types [...] on filedocumented in this encounter Care Teams Lap Runner Relationship Specialty Start Date End Date Marcio Rodriguez MD [address] [place] [address] PCP - General 07/19/20 documented as of this encounter
--- OUTSIDE RECORDS SUMMARY | 2024-02-16 15:04 | XMS_ITS | Continuity of Care Document ---
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 Role Phone Terrence CHEEK, Maverick Unavailable Unavailable Allergies, Adverse Reactions, Alerts Substance Reaction Status [...] AutoShield Duo Pen Needle 30 gauge x /16 - Active Lagevrio 200 mg capsule (EUA) [...] tablet - Ac tive Procedures Procedure Date Trim nail(s) SBSQ NF CARE LOW MDM 20 REMOVE IMPACTED EAR WAX DEBRIDE NAIL 6 [...] Diagnoses Date Provider Providers Copied on Encounter SBSQ NF CARE LOW MDM [address] [place] [address], [address] [facility] [address] [place] [address], [id number], tel:[phone] [place] Nail dystrophyOnycho gryphosisOther specified peripheral vascular diseasesType 2 diabetes mellitus with diabetic neuropathy, unspecifiedAbra fiona, left lesser toe(s), sequelaAbrasion , right lesser toe(s), sequela 4 [place]. [address] [place] [address], [address] [address], [place], [place], [id number], tel:[phone] [place] ear care exam (chief complaint) Impacted cerumen, bilateral 4 [place]. Referring Provider: Rainer Asher. [address] [place] [address], [address] [address] [address], [place], [place], [id number], tel:[phone] [place] Tinea unguiumType 2 diabetes w diabetic peripheral angiopath w/o gangrene 4 Christian Cummings. [address] [facility], [address], [place], [address], [place]. [address] [place] [address], [address] [place] [address], [place], [place], [id number], [place] tel:[phone] [place] Glaucoma, suspect (chief complaint) Open angle with borderline findings, high risk, bilateralAge-re lated nuclear cataract, bilateralType 2 diabetes mellitus without complications 4 Keron Paredes. , [place]. Referring Provider: Marcio Melo. [address] [place] [address], [address] [place] [address], [place], [place], [id number], [place] tel:[phone] [place] Impacted cerumen, bilateral 4 Lina Pace. , [place]. Referring Provider: Marcio Melo. [address] [place] [address], [address] [place] [address], [place], [place], [id number], tel:[phone] [place] Encounter for dental examination and cleaning without abnormal findings 4 Steven Landa. [address] [place] [address], [address], [place], [place], [id number], [place]. tel:[phone] Referring Provider: Marcio Melo. [address] [place] [address], [address] [place] [address], [place], [place], [id number], [place] tel:[phone] [place] Tinea unguiumType 2 diabetes w diabetic peripheral angiopath w/o gangreneCorns and callosities 4 Christian Cummings. [address] [place] [address], [address], [place], [address], [place]. Referring Provider: Rainer Asher. [address] [place] [address], [address] [place] [address], [place], [place], [id number], [place] tel:[phone] [place] No Information 4 Christian Cummings. [address] [place] [address], [address], [place], [address], [place]. [address] [place] [address], [address] [place] [address], [place], [place], [id number], [place] tel:[phone] [place] Corns and callositiesTine a unguiumType 2 diabetes w diabetic peripheral angiopath w/o gangrene Apr- 4 Christian Cummings. [address] [facility], [address], [place], [address], [place]. Referring Provider: Rainer Asher. NURSING FAC CARE SUBSEQ 360[facility], [address] [place], [place] [address], [place], [place], [id number], [place] tel:[phone] [place] Medical eye problem (chief complaint) Hypertensive retinopathy, bilateral Dec-2 3 Kristie Romano. [address] [facility], [place], [address], [place]. tel:[phone] Referring Provider: Marcio Melo. [address] [place] [address], [address] [place], [place] [address], [place], [place], [id number], [place] tel:[phone] [place] Encounter for dental examination and cleaning without abnormal findings Feb-0 3 Angel Payne. [address] [facility], [address], [place], [place], [id number], [place]. tel:[phone] Referring Provider: Marcio Melo. SBSQ NF CARE MODERATE MDM [address] [place] [address], [address] [place], [place] [address], [place], [place], [id number], [place] tel:[phone] [place] Glaucoma, suspect (chief complaint) Open angle with borderline findings, high risk, bilateralAge-re lated nuclear cataract, bilateralType 2 diabetes mellitus without complications Oct-2 3 Mack Mendoza. [address] [facility], [address], [place], [address], [place]. Referring Provider: Marcio Melo. NURSING FAC CARE SUBSEQ 360[facility], [address] [place], [place] [address], [place], [place], [id number], [place] tel:[phone] [place] Abrasion, left lesser toe(s), initial encounterTinea unguiumType 2 diabetes w diabetic peripheral angiopath w/o gangrene Sep-2 3 Christian Cummings. [address] [facility], [address], [place], [address], [place]. [facility], [address] [facility] [address], [place], [place], [id number], [place] tel:[phone] [place] Tinea unguiumType 2 diabetes w diabetic peripheral angiopath w/o gangreneCorns and callosities 3 Christian Cummings. [address] [facility], [address], [place], [address], [place]. Referring Provider: Rainer Asher. NURSING FAC CARE SUBSEQ [address] [place] [address], [address] [facility] [address], [place], [place], [id number], [place] tel:[phone] [place] Medical eye problem (chief complaint) Hypertensive retinopathy, bilateral 3 Kristie Romano. [address] [facility], [place], [address], [place]. tel:[phone] Referring Provider: Marcio Melo. [address] [place] [address], [address] [facility] [address], [place], [place], [id number], [place] tel:[phone] [place] Glaucoma, suspect (chief complaint) Open angle with borderline findings, high risk, bilateralType 2 diabetes mellitus without complicationsAg e-related nuclear cataract, bilateral 3 Mack Mendoza. [address] [facility], [address] [facility], [place], [address], [place]. Referring Provider: Marcio Melo. [address] [place] [address], [address] [facility] 300, [place], [place], [id number], [place] tel:[phone] [place] No Information 3 [place], [place]. [address] [place] [address], [address] [facility] [address], [place], [place], [id number], [place] tel:[phone] [place] Encounter for dental examination and cleaning without abnormal findings 3 [place], [place]. Referring Provider: Marcio Melo. [address] [place] [address], [address] [facility] [address], [place], [place], [id number], [place] tel:[phone] [place] Encounter for examination of ears and hearing without abnormal findings 3 [place], [place]. Referring Provider: Marcio Melo. [address] [place] [address], [address] [place], [place] [address], [place], [place], [id number], [place] tel:[phone] [place] Corns and callositiesTine a unguiumType 2 diabetes w diabetic peripheral angiopath w/o gangrene 3 Christian Cummings. [address], [address], [place], [address], [place]. Referring Provider: Rainer Asher. [address] [place] [address], [address] [place], [place] [address], [place], [place], [id number], [place] tel:[phone] [place] Presbyopia 3 [place], [place]. NURSING FAC CARE SUBSEQ [address] [place] [address], [address] [place], [place] [address], [place], [place], [id number], [place] tel:[phone] [place] hearing loss (chief complaint) Unspecified hearing loss, bilateral 3 Alexy-Hard sera Genia. [address], [address], [place], [address], [place]. Referring Provider: Marcio Melo. [address] [place] [address], [address] [place], [place] [address], [place], [place], [id number], [place] tel:[phone] [place] Diabetic eye exam (chief complaint) Glaucoma, suspect (chief complaint) Open angle with borderline findings, high risk, bilateralVitreo us degeneration, left eyeHypertensive retinopathy, bilateral 2 [place], [place]. Referring Provider: Marcio Melo. [address] [place] [address], [address] [place], [place] [address], [place], [place], [id number], [place] tel:[phone] [place] Tinea unguiumType 2 diabetes w diabetic peripheral angiopath w/o gangrene 2 Christian Cummings. [address], [address], [place], [address], [place]. Referring Provider: Rainer Mcdowell. NURSING FAC CARE SUBSEQ [address] [place] [address], [address] [place] [address] [address], [place], [place], [id number], [place] tel:[phone] [place] Tinea unguiumType 2 diabetes w diabetic peripheral angiopath w/o gangreneHallux valgus (acquired), right foot Sep- 2 Christian Cummings. [address] [facility], [address], [place], [address], [place]. Referring Provider: Marcio Melo. [address] [place] [address], [id number] [place], [place] [address], [place], [place], [id number], [place] tel:[phone] [place] Diabetic eye exam (chief complaint) Type 2 diabetes mellitus with mild nonproliferativ e diabetic retinopathy without macular edema, bilateral Sep- 2 Kristie Romano. [address] [facility], [place], [address], [place]. tel:[phone] Referring Provider: Marcio Melo. [address] [place] [address], [address] [place], [place] [address], [place], [place], [id number], [place] tel:[phone] [place] Glaucoma, suspect (chief complaint) Type 2 diabetes mellitus without complicationsOp en angle with borderline findings, high risk, bilateralDry eye syndrome of bilateral lacrimal glands 2 Mack Mendoza. [address] [facility], [address], [place], [address], [place]. Referring Provider: Marcio Melo. [address] [place] [address], [address] [place], [place] [address], [place], [place], [id number], [place] tel:[phone] [place] Type 2 diabetes w diabetic peripheral angiopath w/o gangreneTinea unguiumCorns and callosities 2 [facility]. , [place]. Referring Provider: Malka Truong. [address] [place] [address], [id number] [place], [place] [address], [place], [place], [id number], [place] tel:[phone] [place] Encounter for dental exam and cleaning w/o abnormal findings 2 Angel Payne. [address] [facility], [address], [place], [place], [id number], [place]. tel:[phone] Referring Provider: Marcio Melo. [facility], [address] [facility] [address], [place], [place], [id number], [place] tel:[phone] [place] Type 2 diabetes mellitus without complicationsTi dimas talley 2 [place], [place]. Referring Provider: Marcio Melo. [address] [place] [address], [address] [address], [place], [place], [id number], [place] tel:[phone] [place] Glaucoma, suspect (chief complaint) Open angle with borderline findings, high risk, bilateralType 2 diabetes mellitus without complications 0 2 Mack Mendoza. [address] [facility], [address], [place], [address], [place]. Referring Provider: Marcio Melo. [address] [place] [address], [address] [place] [address], [place], [place], [id number], [place] tel:[phone] [place] No Information Dec-0 1 [place], [place]. [address] [place] [address], [address] [facility] [address], [place], [place], [id number], [place] tel:[phone] [place] Glaucoma (chief complaint) Glaucoma, suspect (chief complaint) Open angle with borderline findings, high risk, bilateral Oct-1 2- 1 Kristie Romano. [address] [facility], [place], [address], [place]. tel:[phone] Referring Provider: Marcio Melo. NURSING FAC CARE SUBSEQ [address] [place] [address], [address] [facility] [address], [place], [place], [id number], [place] tel:[phone] [place] ear care exam (chief complaint) Unspecified hearing loss, bilateral Oct-0 - 1 Bevier-Hard sera Genia. [address] [facility], [address], [place], [address], [place]. Referring Provider: Marcio Melo. [address] [place] [address], [address] [place], [place] [address], [place], [place], [id number], [place] tel:[phone] [place] Tinea unguiumType 2 diabetes mellitus without complications Sep-2 1 [place]. Referring Provider: Marcio Melo. NURSING FAC CARE SUBSEQ [address] [place] [address], [address] [facility] [address], [place], [place], [id number], tel:[phone] [place] Tinea unguiumAbrasion , right lesser toe(s), initial encounterFlat foot [pes planus] (acquired), unspecified footType 2 diabetes mellitus without complications Sep-2 1 [place], [place]. Referring Provider: Marcio Melo. [address] [place] [address], [address] [place] [address], [place], [place], [id number], tel:[phone] [place] Unspecified hearing loss, bilateral Herbert- 1 Dupree Chelci. [address] [place] [address], [address], [place], [place], [id number], . tel:[phone] Referring Provider: Marcio Melo. [address] [place] [address], [address] [place], [place] [address], [place], [place], [id number], tel:[phone] [place] Medical eye problem (chief complaint) Diabetic eye exam (chief complaint) Type 2 diabetes mellitus without complicationsOp en angle with borderline findings, high risk, bilateral May-0 1 Kristie Romano. [id number] [place] [address], [place], [facility], [place]. tel:[phone] Referring Provider: Marcio Melo. NURSING FAC CARE SUBSEQ [address] [place] [address], [address] [place], [place] [address], [place], [place], [id number], tel:[phone] [place] hearing loss (chief complaint) Unspecified hearing loss, bilateral Jun- 1 Bevier-Hard sera Genia. [address] [facility], [address], [place], [address], [place]. Referring Provider: Marcio Melo. Family History Family Member Type Diagnosis Age At Onset No Information Payers Payer name Insurance type Covered constitution party ID Jessika rahmanshay(s) Medicare [place] [id number] Medicaid [facility] [id number] Social History Type Description Quantity Date Captured Comments Sex Female Smoking Status No Information Chief Complaint And Reason For Visit No [...] symptom is frequent. The condition is moderate. Oct Glaucoma Oct Glaucoma, suspect The patient is present for [...] Information Instructions Date Instruction Additional Infor mishel Discussed using comp ression stockings to assist in localize swelling and venous return, and the fci benefits of using compression stockings. Reinforced the importance of proper adherence to using the vane hose, and compression stockings. Will continue to monitor. Related to Other specified peripheral vascular diseases This is a chronic st able problem, Will reassess and follow up in 2-3 months Related to Type 2 diabetes mellitus with diabetic neuropathy, unspecified Wound care following , healing well at this time, no change to treatment or additional intervention at this time. Will continue to monitor. Related to Abrasion, right lesser toe(s), sequela Wound care following , healing well at this time, no change to treatment or additional intervention at this time. Will continue to monitor. Related to Abrasion, left lesser toe(s), sequela All documented dystr ophic nails were reduced in length as needed to prevent pain and other symptoms. Related to Nail dystrophy All documented thick ened nails were debrided using a rotary tool and nail nipper. Related to Onychogryphosis Performed cerumen re moval as per protocol. [...] findings, high risk, bilateral Oct Impression/Plan - David rderline Glaucoma findings; No [...] diabetes mellitus without complications Discussed with the tatyana adams. No dressing needed at this time. Monitor [...] of ears and hearing without abnormal findings All of the calluses were debrided/pared to prevent further tissue breakdown and pain. Related to Corns and callosities Toenails 1-5 b/l wer e debrided in length and thickness without incident. Follow up in 2-3 months. Related to Tinea unguium Recommend referral t o audiology per patient's [...] 2 diabetes mellitus without complications Impression/Plan - Dr y eye syndrome is [...] angle with borderline findings, high risk, bilateral All of the calluses were debrided/pared [...] with borderline findings, high risk, bilateral Oct- follow up in 12-15 m [address] or sooner if needed. Related to Unspecified [...] loss, bilateral Assessments Type Assessment Date assessment Nail dystrophy assessment Onychogryphosis assessment Other specified peripheral vascu lar diseases assessment Type 2 diabetes mellitus with di abetic neuropathy, unspecified assessment Abrasion, left lesser toe(s), se quela assessment Abrasion, right lesser toe(s), s equela Patient Care Teams Name Effective Dates (start - stop) Status Members No Information
--- NOTE | 2024-02-16 15:20 | XR_ITS ---
FINAL REPORT CLINICAL HISTORY: pain COMPARISON: 06/26/2021 FINDINGS: Three views of the left knee reveal no evidence of fracture or dislocation. The patient is status post knee arthroplasty. The bony alignment is normal. The joint spaces are preserved. There is no evidence of joint effusion. There are vascular calcifications. IMPRESSION: Postoperative changes without acute abnormality. Reviewed, Interpreted and Dictated by Mike Macias III, MD Transcribed by Anu Borges Authenticated and [facility]
--- NOTE | 2024-02-16 15:27 | EXP.PAIN.SOA ---
[facility] Disclaimer: The information contained in this section may have been updated after the patient was seen, as this information can be updated by other users. Medical History (Updated 02/16/24 @ 15:58 by Carmen Boyd APRN) Depression Facial laceration Multiple bruises Fall from bed Contusion of right hip Puncture wound of forehead Traumatic hematoma of forehead Suicidal ideation Pre-operative cardiovascular examination Contusion of left hip Knee contusion Skin tear of forearm without complication Multiple falls Concussion without loss of consciousness Scalp laceration Fracture of rib of right side Contusion of rib on left side Malaise and fatigue Dehydration Elevated left ventricular end-diastolic pressure (LVEDP) Unstable angina pectoris Atypical chest pain Bronchitis Acute kidney injury Sinus bradycardia Renal insufficiency Shingles rash Family History Other Unknown family medical history Social History Smoking Status: Never smoker alcohol intake: never substance use type: denies use current occupational status: other Travel in the last 8 weeks: None household members: other housing: snf caffeine: No PM Subjective & Objective Subjective Subjective:: Patient is a pleasant 73-year-old female who presents today for follow-up of her right intra-articular knee injection on 01/18/2024. Patient rates her pain today a 9 out of 10. She does state that she had 75% relief and that the right knee is doing just fine. She does state that she has had 2 different occasions where she fell over the last week or so. Patient states that there was not anything in particular that went on however her legs just gave out causing her to fall. She states 1 was about a week ago and denied any significant injury. The other episode of falling happened yesterday and she states that she landed directly on her left knee. Patient is experiencing worsening pain and swelling in this extremity. Patient is unsure if she did anything of significance. She does state the pain is severe and is interfering with her ability perform activities of daily living such as cooking and cleaning. Patient did previously have a left infrapatellar nerve block in October that did provide 90% relief and overall has done pretty well up until the fall. Patient is interested in any help we may be able to provide due to the worsening pain. Her Kristopher has been reviewed and is appropriate. Review of Systems: General: No recent weight changes, no fever, no sleep disturbances Respiratory: No cough, no shortness of air, no recurring pulmonary infections Cardiovascular/peripheral vascular: No chest pain, no palpitations, no edema, no shortness of breath Gastrointestinal: No new onset incontinence, normal bowel movements reported Genitourinary: No new onset incontinence Musculoskeletal: Left knee pain Psychiatric: [Normal mood/affect] Neurological: [Denies weakness in extremities], [denies balance issues] Pain at rest (0-10 scale): 9 Objective Objective:: Physical Exam: General: Alert and oriented x3, no acute distress, pleasant and cooperative Lungs: Respirations even and unlabored, symmetrical chest expansion Eyes: PERRL Musculoskeletal: Flexion and extension of left knee somewhat guarded secondary to pain, [antalgic gait noted] Neurological: Speech clear, no gross sensory deficit Has patient had previous pain injection?: Yes Percent improvement in pain since last injection: 75% Conservative treatment options previously tried: Home exercise plan Length of treatment: Longer than 12 weeks Meds Home Medications and Allergies Home Medications ?Medication ?Instructions ?Recorded ?Confirmed ?Type atorvastatin 20 mg tablet 20 mg PO HS Cholesterol 02/17/18 01/18/24 History sertraline 100 mg tablet 200 mg PO DAILY mood 02/17/18 01/18/24 History calcium carbonate-vitamin D3 600 1 each PO BID Supplement 09/29/19 01/18/24 History mg-125 unit tablet clopidogrel 75 mg tablet 75 mg PO DAILY antiplatelet 09/29/19 01/18/24 History doxepin 10 mg capsule 30 mg PO HS sleep 09/29/19 01/18/24 History insulin glargine 100 unit/mL (3 35 unit SQ HS Diabetes 09/29/19 01/18/24 History mL) subcutaneous pen metformin 500 mg tablet 500 mg PO DAILY Diabetes 09/29/19 01/18/24 History omeprazole 40 mg capsule,delayed 40 mg PO DAILY acid reflux 09/29/19 01/18/24 History release oxybutynin chloride 10 mg 10 mg PO DAILY overactive bladder 09/29/19 01/18/24 History tablet,extended release 24 hr aripiprazole 30 mg tablet 30 mg PO DAILY mood 05/17/20 01/18/24 History aspirin 81 mg chewable tablet 81 mg PO DAILY heart health 05/17/20 01/18/24 History bupropion HCl 150 mg 24 hr tablet, 150 mg PO DAILY Depression 05/17/20 01/18/24 History extended release trazodone 100 mg tablet 100 mg PO HS Insomnia 05/17/20 01/18/24 History acetaminophen 500 mg tablet 500 mg PO Q6H PRN pain 06/03/20 01/18/24 History (Tylenol Extra Strength) amlodipine 5 mg tablet 2.5 mg (1/2 x 5 mg) PO DAILY 06/03/20 01/18/24 Rx Hypertension #15 tabs docusate sodium 100 mg capsule 100 mg PO DAILY constipation 06/03/20 01/18/24 History (Colace) lactulose 20 gram/30 mL oral 20 g PO BID constipation 06/03/20 01/18/24 History solution lisinopril 5 mg tablet 2.5 mg (1/2 x 5 mg) PO DAILY 06/03/20 01/18/24 Rx Hypertension #15 tabs polyethylene glycol 3350 17 17 g PO DAILY constipation 06/03/20 01/18/24 History gram/dose oral powder (Miralax) zinc acetate 25 mg (zinc) capsule 25 mg PO DAILY supplement 06/03/20 01/18/24 History (Galzin) gabapentin 100 mg capsule 100 mg PO BID Pain #60 caps 08/18/22 01/18/24 Rx tramadol 50 mg tablet 50 mg PO BID PRN pain #60 tabs 09/03/22 01/18/24 Rx diclofenac sodium 1 % topical gel 2 g topical QID #100 grams 12/09/23 01/18/24 Rx (Voltaren Arthritis Pain) New Prescriptions to Start Prescriptions: Allergies Allergy/AdvReac Type Severity Reaction Status Date / Time pentazocine (PENTAZOCINE) Allergy Intermediate CRAZY Verified 10/19/23 11:47 prochlorperazine Allergy Intermediate ITCHING Verified 10/19/23 11:47 (PROCHLORPERAZINE) lithium (LITHIUM) Allergy Unknown Verified 10/19/23 11:47 Assessment and Plan *Assessment and plan (1) Left knee pain: Status: Acute Category: Medical Code(s): M25.562 - Pain in left knee Plan Patient is experiencing worsening pain in her left knee with very limited range of motion. Patient did have mild swelling in comparison to the right during today's visit. I did discuss with patient that I will order x-ray to rule out of fracture and that as long as there is no contraindications we will plan on proceeding forward with a repeat left infrapatellar nerve block. Patient did have her prior injection of this back in October that did provide 90% relief and has worked well up until her fall. Patient has continued conservative treatment including oral medication, heat and ice, topicals, continued at home stretching exercise for longer than 12 weeks. Patient will be scheduled for a left infrapatellar nerve block. Patient has been instructed to contact the clinic with any concerns before the next appointment. Dr. Smith has reviewed this note and agrees with this plan of care. This note was dictated using voice recognition software and make contain errors or omissions. All injections are used with Lidocaine or Bupivacaine and Depo Medrol.
[2024-02-16 16:26] VITALS: BP 126/60; PULSE 58; RESP 16; O2SAT 96; BMI 36.3
== END 2024-02-16 23:59 | disposition home or self-care (01) ==
PROVIDERS: Visit Provider Nurse Practitioner Family
DX: M25.562 Pain in left knee (principal); Z73.89 Other problems related to life management difficulty; Z79.899 Other long term (current) drug therapy
CPT/HCPCS: 73562; 99212; G0463

== ENCOUNTER 2024-03-14 13:49 | Day surgery (SDC) | payer MEDICARE, MEDICAID, SELFPAY ==
[2024-03-14 14:12] VITALS: BP 161/71; PULSE 66; RESP 16; TEMP 36.4; O2SAT 100; BMI 34.9
[2024-03-14] MEDS: methylPREDNISolone ACETATE 80MG/ML VIAL 80 MG (14:18)
[2024-03-14] MEDS: BUPIVACAINE 0.25% 10ML INJ 25 MG IJ (14:19)
[2024-03-14] MEDS: LIDOCAINE 1% 5ML PF VIAL 5 ML (14:19)
[2024-03-14 14:20] LABS: POC Glucose,Bedside 160 (70-110)
[2024-03-14 14:27] VITALS: BP 137/76; PULSE 59; RESP 16; O2SAT 100
--- NOTE | 2024-03-14 14:27 | EXP.PAIN.PRO ---
Procedure Date: 03/14/24 Time: 14:25 Anesthesiologist:: Thong Pelaez CRNA Complications:: None Pre-procedure Diagnosis:: Status post left total knee replacement. Chronic left knee pain. Post-procedure Diagnosis:: Same. Indications for Procedure:: Patient is a pleasant 73-year-old female who comes our clinic today for left infrapatellar nerve block. Patient is status post left TKA in the past. Continues to have chronic left knee pain. Patient describes pain as constant, dull, aching. Patient is unable to ambulate due to left knee pain. She rates her pain 7/10. Procedure Details:: Details of the procedure explained to the patient. The area of the left knee was cleaned using chlorhexidine as a cleansing solution. Using a 25-gauge inch and half needle the left infrapatellar nerve was accessed with ease. After negative aspiration a 10 cc solution containing 0.25% Marcaine 5 mL +1% lidocaine 5 mL and 40 mg of Depo-Medrol was injected. Patient tolerated procedure without difficulty. No complications.. Plan and Disposition:: Patient was discharged out incident.
== END 2024-03-14 14:27 | disposition home or self-care (01) ==
PROVIDERS: Visit Provider Nurse Anesthetist, Certified Registered
DX: M25.562 Pain in left knee (principal); G89.29 Other chronic pain; Z96.652 Presence of left artificial knee joint
CPT/HCPCS: 64450; 82962; J1010

== ENCOUNTER 2024-04-05 10:07 | Outpatient (POV) | payer MEDICARE, MEDICAID, SELFPAY ==
[2024-04-05 10:38] VITALS: BP 124/68; PULSE 62; RESP 14; O2SAT 94; BMI 36.3
--- NOTE | 2024-04-05 11:10 | EXP.PAIN.SOA ---
[facility] Disclaimer: The information contained in this section may have been updated after the patient was seen, as this information can be updated by other users. Medical History Depression Facial laceration Multiple bruises Fall from bed Contusion of right hip Puncture wound of forehead Traumatic hematoma of forehead Suicidal ideation Pre-operative cardiovascular examination Contusion of left hip Knee contusion Skin tear of forearm without complication Multiple falls Concussion without loss of consciousness Scalp laceration Fracture of rib of right side Contusion of rib on left side Malaise and fatigue Dehydration Elevated left ventricular end-diastolic pressure (LVEDP) Unstable angina pectoris Atypical chest pain Bronchitis Acute kidney injury Sinus bradycardia Renal insufficiency Shingles rash Family History Other Unknown family medical history Social History Smoking Status: Never smoker alcohol intake: never substance use type: denies use current occupational status: other Travel in the last 8 weeks: None household members: other housing: senior care caffeine: No PM Subjective & Objective Subjective Subjective:: Patient is a pleasant 73-year-old female who presents today for follow-up of left infrapatellar nerve block. Patient rates her pain today a 9 out of 10. She states that she did get significant improvement however feels like it is more giving about 25% relief nail. Her injection was on 14 March. She feels like the left leg is just continually getting weaker. Patient has had a left total knee replacement about 10 years ago that was done in removal and just has continued to have issues. Patient does state that her right knee is still doing wonderful from her last right intra-articular injection that was back in January that provided 75% relief. She states that the injection on that side has done well and has improved function. She states that the left knee has always been the worst. Patient is a resident at a senior care. Her Kristopher has been reviewed and is appropriate. Review of Systems: General: No recent weight changes, no fever, no sleep disturbances Respiratory: No cough, no shortness of air, no recurring pulmonary infections Cardiovascular/peripheral vascular: No chest pain, no palpitations, no edema, no shortness of breath Gastrointestinal: No new onset incontinence, normal bowel movements reported Genitourinary: No new onset incontinence Musculoskeletal: Left knee pain Psychiatric: [Normal mood/affect] Neurological: [Denies weakness in extremities], [denies balance issues] Pain at rest (0-10 scale): 9 Objective Objective:: Physical Exam: General: Alert and oriented x3, no acute distress, pleasant and cooperative Lungs: Respirations even and unlabored, symmetrical chest expansion Eyes: PERRL Musculoskeletal: Flexion and extension of left knee [spine] somewhat guarded secondary to pain, [antalgic gait noted] Neurological: Speech clear, no gross sensory deficit Has patient had previous pain injection?: Yes Percent improvement in pain since last injection: 50 to 25% Conservative treatment options previously tried: Home exercise plan Length of treatment: Over12 weeks Meds Home Medications and Allergies Home Medications ?Medication ?Instructions ?Recorded ?Confirmed ?Type atorvastatin 20 mg tablet 20 mg PO HS Cholesterol 02/17/18 04/05/24 History sertraline 100 mg tablet 200 mg PO DAILY mood 02/17/18 04/05/24 History calcium carbonate-vitamin D3 600 1 each PO BID Supplement 09/29/19 04/05/24 History mg-125 unit tablet clopidogrel 75 mg tablet 75 mg PO DAILY antiplatelet 09/29/19 04/05/24 History doxepin 10 mg capsule 30 mg PO HS sleep 09/29/19 04/05/24 History insulin glargine 100 unit/mL (3 35 unit SQ HS Diabetes 09/29/19 04/05/24 History mL) subcutaneous pen metformin 500 mg tablet 500 mg PO DAILY Diabetes 09/29/19 04/05/24 History omeprazole 40 mg capsule,delayed 40 mg PO DAILY acid reflux 09/29/19 04/05/24 History release oxybutynin chloride 10 mg 10 mg PO DAILY overactive bladder 09/29/19 04/05/24 History tablet,extended release 24 hr aripiprazole 30 mg tablet 30 mg PO DAILY mood 05/17/20 04/05/24 History aspirin 81 mg chewable tablet 81 mg PO DAILY heart health 05/17/20 04/05/24 History bupropion HCl 150 mg 24 hr tablet, 150 mg PO DAILY Depression 05/17/20 04/05/24 History extended release trazodone 100 mg tablet 100 mg PO HS Insomnia 05/17/20 04/05/24 History acetaminophen 500 mg tablet 500 mg PO Q6H PRN pain 06/03/20 04/05/24 History (Tylenol Extra Strength) amlodipine 5 mg tablet 2.5 mg (1/2 x 5 mg) PO DAILY 06/03/20 04/05/24 Rx Hypertension #15 tabs docusate sodium 100 mg capsule 100 mg PO DAILY constipation 06/03/20 04/05/24 History (Colace) lactulose 20 gram/30 mL oral 20 g PO BID constipation 06/03/20 04/05/24 History solution lisinopril 5 mg tablet 2.5 mg (1/2 x 5 mg) PO DAILY 06/03/20 04/05/24 Rx Hypertension #15 tabs polyethylene glycol 3350 17 17 g PO DAILY constipation 06/03/20 04/05/24 History gram/dose oral powder (Miralax) zinc acetate 25 mg (zinc) capsule 25 mg PO DAILY supplement 06/03/20 04/05/24 History (Galzin) gabapentin 100 mg capsule 100 mg PO BID Pain #60 caps 08/18/22 04/05/24 Rx tramadol 50 mg tablet 50 mg PO BID PRN pain #60 tabs 09/03/22 04/05/24 Rx diclofenac sodium 1 % topical gel 2 g topical QID #100 grams 12/09/23 04/05/24 Rx (Voltaren Arthritis Pain) New Prescriptions to Start Prescriptions: Allergies Allergy/AdvReac Type Severity Reaction Status Date / Time pentazocine (PENTAZOCINE) Allergy Intermediate CRAZY Verified 10/19/23 11:47 prochlorperazine Allergy Intermediate ITCHING Verified 10/19/23 11:47 (PROCHLORPERAZINE) lithium (LITHIUM) Allergy Unknown Verified 10/19/23 11:47 Assessment and Plan *Assessment and plan (1) Left knee pain: Status: Acute Category: Medical Code(s): M25.562 - Pain in left knee Plan Patient continues to have significant pain in her left knee with additional weakness and feeling like the leg is going to give out. Patient does do physical therapy at the facility however has not noticed any additional improvement. I did discuss with the patient that she may benefit from a knee brace. I will order her a customizable knee brace to help stabilize and protect the knee while the patient ambulates. Patient agrees with this plan of care. Patient will return to clinic in 2 months for reevaluation of symptoms and plan of care. Patient has been instructed to contact the clinic with any concerns before the next appointment. Dr. Smith has reviewed this note and agrees with this plan of care. This note was dictated using voice recognition software and make contain errors or omissions. All injections are used with Lidocaine, Bupivacaine and Depo Medrol. Occasionally urine drug screen is needed to verify patient's compliance with our office pain contract. This is ordered based off specific treatments related to chronic pain with the potential to abuse certain medications.
== END 2024-04-05 23:59 | disposition home or self-care (01) ==
LOC: SC.PAIN 10:08
PROVIDERS: PCP Family Medicine; Visit Provider Nurse Practitioner Family
DX: M25.562 Pain in left knee (principal); Z96.652 Presence of left artificial knee joint; Z79.899 Other long term (current) drug therapy
CPT/HCPCS: 99212; G0463

== ENCOUNTER 2024-04-24 16:50 | Emergency (ER) | payer MEDICARE, MEDICAID, SELFPAY ==
[2024-04-24] VITALS (11 sets, daily range): BP systolic 119–153; BP diastolic 54–89; PULSE 51–73; RESP 14–17; TEMP 36.6; O2SAT 96–98; BMI 20.9
--- NOTE | 2024-04-24 16:50 | PC.NURSE ---
pt arrived via EMS to room 8. A Sanjeev RN at bedside for report and triage.
--- NOTE | 2024-04-24 16:57 | HMH.EDGENADL ---
Discharge Plan Disposition Patient Disposition: Xfer SNF Prescriptions Prescriptions: No Action atorvastatin 20 mg tablet 20 mg PO HS sertraline 100 mg tablet 200 mg PO DAILY docusate sodium [Colace] 100 mg capsule 100 mg PO DAILY acetaminophen [Tylenol Extra Strength] 500 mg tablet 500 mg PO Q6H PRN (Reason: pain) lactulose 20 gram/30 mL solution 20 g PO BID polyethylene glycol 3350 [Miralax] 17 gram/dose powder 17 g PO DAILY Galzin 25 mg (zinc) capsule 25 mg PO DAILY amlodipine 5 mg tablet 2.5 mg PO DAILY Qty: 15 4RF lisinopril 5 mg tablet 2.5 mg PO DAILY Qty: 15 4RF gabapentin 100 mg capsule 100 mg PO BID Qty: 60 5RF tramadol 50 mg tablet 50 mg PO BID PRN (Reason: pain) Qty: 60 0RF metformin 500 MG tablet 500 mg PO DAILY oxybutynin chloride 10 MG tablet extended release 24hr 10 mg PO DAILY clopidogrel 75 MG tablet 75 mg PO DAILY doxepin 10 MG capsule 30 mg PO HS omeprazole 40 MG capsule,delayed release(DR/EC) 40 mg PO DAILY calcium carbonate-vitamin D3 1 EACH tablet 1 each PO BID insulin glargine 100 UNIT/ML insulin pen 35 unit SQ HS bupropion HCl 150 MG tablet extended release 24 hr 150 mg PO DAILY trazodone 100 MG tablet 100 mg PO HS aspirin 81 MG tablet,chewable 81 mg PO DAILY aripiprazole 30 MG tablet 30 mg PO DAILY diclofenac sodium [Voltaren Arthritis Pain] 1 % gel 2 g topical QID Qty: 100 0RF Rx Instructions: apply to single elbow, wrist or hand; for hand includes palm/fingers/back of hand Referrals Follow up/Referrals: Rainer Pretty MD [Primary Care Provider] - See instructions Activity Restrictions/Add. Instructions Additional Instructions/Restrictions: To conversation with mental health intake at [facility] patient does not meet criteria for inpatient psychiatric admission. They do recommend however outpatient psychiatric follow-up within 48 hours. They also recommend that patient have no access to sharp objects that she be served with paper products and plastic wear instead of full metal utensils. Clinical Impressions Clinical Impression: Suicidal ideation Print Language Print Language: Iraqi Discharge ED Provider: Erich Vee General Adult HPI <JAMARCUS Negron - Last Filed: 04/24/24 22:19> General Chief complaint: Psychiatric Symptoms Stated complaint: SI with plan Time Seen by Provider: 04/24/24 16:57 History of Present Illness HPI narrative: Patient presents for suicidal ideations with plan. [facility] however her son is her power of divorce attorney. Patient has a long history of schizophrenia/schizoaffective disorder and depression. Patient told staff member at the [facility] today that she had plan to kill herself by cutting herself with anything that she can get my hands on . Patient states the reason for this is that she is upset that she has not spoken to her son in the month and has not seen him in over a year. Patient however also states that she is upset because she is missing dinner at the [facility] and does not understand why she is here in the emergency department. She denies any chest pain fever chills hemoptysis hematochezia melena nausea vomiting diarrhea and denies suicide ideations currently. As her son is her power of divorce attorney I then had a conversation with him and he states that he travels for work a lot and his mom would call him sometimes up to 6 times a day. He is the only family member who is still on speaking terms with her. He states that she has done this in the past but is always notified somebody that she was going to do it. She has not actually had a psychiatric admission and that he is aware of. Related Data Home Medications ?Medication ?Instructions ?Recorded ?Confirmed atorvastatin 20 mg tablet 20 mg PO HS Cholesterol 02/17/18 04/05/24 sertraline 100 mg tablet 200 mg PO DAILY mood 02/17/18 04/05/24 calcium carbonate-vitamin D3 600 1 each PO BID Supplement 09/29/19 04/05/24 mg-125 unit tablet clopidogrel 75 mg tablet 75 mg PO DAILY antiplatelet 09/29/19 04/05/24 doxepin 10 mg capsule 30 mg PO HS sleep 09/29/19 04/05/24 insulin glargine 100 unit/mL (3 35 unit SQ HS Diabetes 09/29/19 04/05/24 mL) subcutaneous pen metformin 500 mg tablet 500 mg PO DAILY Diabetes 09/29/19 04/05/24 omeprazole 40 mg capsule,delayed 40 mg PO DAILY acid reflux 09/29/19 04/05/24 release oxybutynin chloride 10 mg 10 mg PO DAILY overactive bladder 09/29/19 04/05/24 tablet,extended release 24 hr aripiprazole 30 mg tablet 30 mg PO DAILY mood 05/17/20 04/05/24 aspirin 81 mg chewable tablet 81 mg PO DAILY heart health 05/17/20 04/05/24 bupropion HCl 150 mg 24 hr tablet, 150 mg PO DAILY Depression 05/17/20 04/05/24 extended release trazodone 100 mg tablet 100 mg PO HS Insomnia 05/17/20 04/05/24 acetaminophen 500 mg tablet 500 mg PO Q6H PRN pain 06/03/20 04/05/24 (Tylenol Extra Strength) docusate sodium 100 mg capsule 100 mg PO DAILY constipation 06/03/20 04/05/24 (Colace) lactulose 20 gram/30 mL oral 20 g PO BID constipation 06/03/20 04/05/24 solution polyethylene glycol 3350 17 17 g PO DAILY constipation 06/03/20 04/05/24 gram/dose oral powder (Miralax) zinc acetate 25 mg (zinc) capsule 25 mg PO DAILY supplement 06/03/20 04/05/24 (Galzin) Previous Rx's ?Medication ?Instructions ?Recorded amlodipine 5 mg tablet 2.5 mg (1/2 x 5 mg) PO DAILY 06/03/20 Hypertension #15 tabs lisinopril 5 mg tablet 2.5 mg (1/2 x 5 mg) PO DAILY 06/03/20 Hypertension #15 tabs gabapentin 100 mg capsule 100 mg PO BID Pain #60 caps 08/18/22 tramadol 50 mg tablet 50 mg PO BID PRN pain #60 tabs 09/03/22 diclofenac sodium 1 % topical gel 2 g topical QID #100 grams 12/09/23 (Voltaren Arthritis Pain) Allergies Allergy/AdvReac Type Severity Reaction Status Date / Time pentazocine (PENTAZOCINE) Allergy Intermediate CRAZY Verified 10/19/23 11:47 prochlorperazine Allergy Intermediate ITCHING Verified 10/19/23 11:47 (PROCHLORPERAZINE) lithium (LITHIUM) Allergy Unknown Verified 10/19/23 11:47 [facility] <JAMARCUS Negron - Last Filed: 04/24/24 22:19> [facility] Disclaimer: The information contained in this section may have been updated after the patient was seen, as this information can be updated by other users. Medical History (Updated 04/24/24 @ 22:19 by JAMARCUS Negron) Depression Facial laceration Multiple bruises Fall from bed Contusion of right hip Puncture wound of forehead Traumatic hematoma of forehead Suicidal ideation Pre-operative cardiovascular examination Contusion of left hip Knee contusion Skin tear of forearm without complication Multiple falls Concussion without loss of consciousness Scalp laceration Fracture of rib of right side Contusion of rib on left side Malaise and fatigue Dehydration Elevated left ventricular end-diastolic pressure (LVEDP) Unstable angina pectoris Atypical chest pain Bronchitis Acute kidney injury Sinus bradycardia Renal insufficiency Shingles rash Family History Other Unknown family medical history Social History Smoking Status: Former smoker alcohol intake: never substance use type: denies use current occupational status: other Travel in the last 8 weeks: None household members: other housing: [facility] caffeine: No Other Medical History Have you received the Flu Vaccine for this season: Yes Have you received the Pneumonia Vaccine: Yes <JAMARCUS Negron - Last Filed: 04/24/24 22:19> ROS Obtained: Yes Systems reviewed as appropriate & no additional complaints except as documented Physical Exam <JAMARCUS Negron - Last Filed: 04/24/24 22:19> General General appearance: alert and in no apparent distress Respiratory Respiratory exam: Present normal lung sounds bilaterally Cardiovascular Cardiovascular exam: Present regular rate Neurological Exam Neurological exam: Present alert; Absent oriented X3 (Patient is oriented to person and her son but not the year the day or the month. At baseline she does have dementia reportedly.) Medical Decision Making <JAMARCUS Negron - Last Filed: 04/24/24 22:19> Medical Records Medical records reviewed: Yes I reviewed the patient's medical records. Screening: Per USPSTF and CDC recommendations, given the prevalence of disease in our region, it is our hospital?s policy to screen for HIV and viral Hepatitis for all patients aged 18 and over and those with ongoing risk factors. Kristopher Inquiry Pt receiving controlled substance: No Vital Signs: 04/24/24 16:50 04/24/24 19:01 04/24/24 19:31 Temperature 97.9 F Temperature Source Oral Pulse Rate 56 L Pulse Rate [Left Radial] 56 L Respiratory Rate 17 Blood Pressure 153/74 H 130/61 Blood Pressure [Right Arm] 151/67 H Blood Pressure Mean 100 Blood Pressure Mean [Right Arm] 95 Blood Pressure Source [Right Arm] Automatic Cuff Blood Pressure Position Blood Pressure Position [Right Arm] Sitting 02 Sat by Pulse Oximetry 97 97 Oxygen Delivery Method Room Air Room Air Room Air 04/24/24 20:00 04/24/24 20:31 04/24/24 21:00 Temperature Temperature Source Pulse Rate 60 60 51 L Pulse Rate [Left Radial] Respiratory Rate Blood Pressure 149/89 H 126/64 149/61 H Blood Pressure [Right Arm] Blood Pressure Mean Blood Pressure Mean [Right Arm] Blood Pressure Source [Right Arm] Blood Pressure Position Blood Pressure Position [Right Arm] 02 Sat by Pulse Oximetry 98 97 96 Oxygen Delivery Method Room Air Room Air Room Air 04/24/24 21:31 04/24/24 22:03 04/24/24 22:32 Temperature Temperature Source Pulse Rate 54 L 73 65 Pulse Rate [Left Radial] Respiratory Rate Blood Pressure 119/54 L 145/81 H 127/64 Blood Pressure [Right Arm] Blood Pressure Mean Blood Pressure Mean [Right Arm] Blood Pressure Source [Right Arm] Blood Pressure Position Blood Pressure Position [Right Arm] 02 Sat by Pulse Oximetry 96 97 98 Oxygen Delivery Method Room Air Room Air Room Air 04/24/24 23:00 04/24/24 23:24 Temperature 98 F Temperature Source Oral Pulse Rate 67 68 Pulse Rate [Left Radial] Respiratory Rate 14 Blood Pressure 131/74 140/70 Blood Pressure [Right Arm] Blood Pressure Mean Blood Pressure Mean [Right Arm] Blood Pressure Source [Right Arm] Blood Pressure Position Supine Blood Pressure Position [Right Arm] 02 Sat by Pulse Oximetry 98 Oxygen Delivery Method Room Air Room Air Lab Data Lab results reviewed: Yes I reviewed the patient's lab results. Lab Results 04/24/24 17:12: Urine Color Yellow, Urine Appearance Slightly cloudy, Urine pH 6.0, Ur Specific [place] 1.020, Urine Protein Negative, Urine Glucose (UA) 2+, Urine Ketones Negative, Urine Blood Trace-i, Urine Nitrate Positive A, Urine Bilirubin Negative, Urine Urobilinogen 0.2, Ur Leukocyte Esterase 2+ A, Urine RBC 3-5, Urine WBC 50-100, Ur Squamous Epith Cells 3-5, Urine Bacteria 2+, Urine Yeast 2+ 04/24/24 18:25: WBC 8.7, RBC 4.38, Hgb 12.4, Hct 39.3, MCV 89.7, MCH 28.3, MCHC 31.6 L, RDW 14.4, Plt Count 141 L, MPV 11.1 H, Neut % (Auto) 64.8, Lymph % (Auto) 23.2, [place] % (Auto) 6.2, Eos % (Auto) 4.6, Baso % (Auto) 0.5, Neut # (Auto) 5.7, Lymph # (Auto) 2.0, [place] # (Auto) 0.5, Eos # (Auto) 0.4, Baso # (Auto) 0.0, Sodium 140, Potassium 4.7, Chloride 104, Carbon Dioxide 31 H, Anion Gap 9.7, BUN 22 H, Creatinine 1.20 H, Estimated Creat Clear 41, Estimated GFR 44 L, Est GFR ( Amer) 53 L, Glucose 112 H, Calcium 9.7, Magnesium 1.8, Total Bilirubin 0.4, AST 23, ALT 18, Alkaline Phosphatase 150 H, Troponin I 0.01, Total Protein 7.1, Albumin 4.2, Globulin 2.9, Albumin/Globulin Ratio 1.4 04/24/24 18:25 04/24/24 18:25 Orders (Tests/Meds): ED MEDICATIONS Discontinued Medications Generic Name Dose Route Start Last Admin Trade Name Freq PRN Reason Stop Dose Admin Levetiracetam 1,000 mg/ Sodium 110 mls @ 220 mls/hr 04/24/24 17:28 04/24/24 17:34 Chloride IV 04/24/24 17:29 Not Given ONCE ONE ORDERS Category Date Time Status CBC w/Auto Diff [Complete Blood Count Auto Diff] Stat Lab 04/24/24 18:25 Completed CMP [Comprehensive Metabolic Panel] Stat Lab 04/24/24 18:25 Completed Magnesium Stat Lab 04/24/24 18:25 Completed Trop I [Troponin I] Stat Lab 04/24/24 18:25 Completed UA [Urinalysis and Microscopic] Stat Lab 04/24/24 17:12 Completed Urine Culture Stat Micro 04/24/24 17:12 Received VBG [Venous Blood Gas] Stat RT 04/24/24 17:13 Stop Req Medical Decision Narrative: In summary patient is a 73-year-old female who presents to the emergency department for evaluation of suicidal ideations. Patient is hemodynamic stable with a blood pressure 151/67 pulse 56 respiratory rate 17 temperature is 97.9 O2 sats 98% on room air upon arrival. Physical exam is remarkable for a well-nourished well-developed 73-year-old female who is otherwise in no acute distress. It is of note that patient is unable to ambulate without assistance and a walker. She currently denies any suicidal ideations but does admit to the utterance earlier today and states that she did it because she was angry at her son as she has been unable to reach him.. Differential diagnosis includes suicidal ideation versus manipulation. Initial workup will be conducted with hematologic labs urinalysis. Additionally a mental health evaluation has been requested from [facility]. Initial interventions include suicide precautions. Initial workup reviewed by me and via my conversation with the project development coordinator she does not meet criteria for inpatient admission however they recommend outpatient psychiatric evaluation. Upon repeat evaluation repeats that she is not suicidal denies self-harm but also lacks the ability to self-harm. Given this I recommended [facility] with [facility] to her [facility] team. Patient have paper products with meals and no access to sharp objects. <Erich Vee MD - Last Filed: 04/24/24 23:32> Vital Signs: 04/24/24 16:50 04/24/24 19:01 04/24/24 19:31 Temperature 97.9 F Temperature Source Oral Pulse Rate 56 L Pulse Rate [Left Radial] 56 L Respiratory Rate 17 Blood Pressure 153/74 H 130/61 Blood Pressure [Right Arm] 151/67 H Blood Pressure Mean 100 Blood Pressure Mean [Right Arm] 95 Blood Pressure Source [Right Arm] Automatic Cuff Blood Pressure Position Blood Pressure Position [Right Arm] Sitting 02 Sat by Pulse Oximetry 97 97 Oxygen Delivery Method Room Air Room Air Room Air 04/24/24 20:00 04/24/24 20:31 04/24/24 21:00 Temperature Temperature Source Pulse Rate 60 60 51 L Pulse Rate [Left Radial] Respiratory Rate Blood Pressure 149/89 H 126/64 149/61 H Blood Pressure [Right Arm] Blood Pressure Mean Blood Pressure Mean [Right Arm] Blood Pressure Source [Right Arm] Blood Pressure Position Blood Pressure Position [Right Arm] 02 Sat by Pulse Oximetry 98 97 96 Oxygen Delivery Method Room Air Room Air Room Air 04/24/24 21:31 04/24/24 22:03 04/24/24 22:32 Temperature Temperature Source Pulse Rate 54 L 73 65 Pulse Rate [Left Radial] Respiratory Rate Blood Pressure 119/54 L 145/81 H 127/64 Blood Pressure [Right Arm] Blood Pressure Mean Blood Pressure Mean [Right Arm] Blood Pressure Source [Right Arm] Blood Pressure Position Blood Pressure Position [Right Arm] 02 Sat by Pulse Oximetry 96 97 98 Oxygen Delivery Method Room Air Room Air Room Air 04/24/24 23:00 04/24/24 23:24 Temperature 98 F Temperature Source Oral Pulse Rate 67 68 Pulse Rate [Left Radial] Respiratory Rate 14 Blood Pressure 131/74 140/70 Blood Pressure [Right Arm] Blood Pressure Mean Blood Pressure Mean [Right Arm] Blood Pressure Source [Right Arm] Blood Pressure Position Supine Blood Pressure Position [Right Arm] 02 Sat by Pulse Oximetry 98 Oxygen Delivery Method Room Air Room Air Lab Data Lab Results 04/24/24 17:12: Urine Color Yellow, Urine Appearance Slightly cloudy, Urine pH 6.0, Ur Specific [place] 1.020, Urine Protein Negative, Urine Glucose (UA) 2+, Urine Ketones Negative, Urine Blood Trace-i, Urine Nitrate Positive A, Urine Bilirubin Negative, Urine Urobilinogen 0.2, Ur Leukocyte Esterase 2+ A, Urine RBC 3-5, Urine WBC 50-100, Ur Squamous Epith Cells 3-5, Urine Bacteria 2+, Urine Yeast 2+ 04/24/24 18:25: WBC 8.7, RBC 4.38, Hgb 12.4, Hct 39.3, MCV 89.7, MCH 28.3, MCHC 31.6 L, RDW 14.4, Plt Count 141 L, MPV 11.1 H, Neut % (Auto) 64.8, Lymph % (Auto) 23.2, [place] % (Auto) 6.2, Eos % (Auto) 4.6, Baso % (Auto) 0.5, Neut # (Auto) 5.7, Lymph # (Auto) 2.0, [place] # (Auto) 0.5, Eos # (Auto) 0.4, Baso # (Auto) 0.0, Sodium 140, Potassium 4.7, Chloride 104, Carbon Dioxide 31 H, Anion Gap 9.7, BUN 22 H, Creatinine 1.20 H, Estimated Creat Clear 41, Estimated GFR 44 L, Est GFR ( Amer) 53 L, Glucose 112 H, Calcium 9.7, Magnesium 1.8, Total Bilirubin 0.4, AST 23, ALT 18, Alkaline Phosphatase 150 H, Troponin I 0.01, Total Protein 7.1, Albumin 4.2, Globulin 2.9, Albumin/Globulin Ratio 1.4 Orders (Tests/Meds): ED MEDICATIONS Discontinued Medications Generic Name Dose Route Start Last Admin Trade Name Freq PRN Reason Stop Dose Admin Levetiracetam 1,000 mg/ Sodium 110 mls @ 220 mls/hr 04/24/24 17:28 04/24/24 17:34 Chloride IV 04/24/24 17:29 Not Given ONCE ONE ORDERS Category Date Time Status CBC w/Auto Diff [Complete Blood Count Auto Diff] Stat Lab 04/24/24 18:25 Completed CMP [Comprehensive Metabolic Panel] Stat Lab 04/24/24 18:25 Completed Magnesium Stat Lab 04/24/24 18:25 Completed Trop I [Troponin I] Stat Lab 04/24/24 18:25 Completed UA [Urinalysis and Microscopic] Stat Lab 04/24/24 17:12 Completed Urine Culture Stat Micro 04/24/24 17:12 Received VBG [Venous Blood Gas] Stat RT 04/24/24 17:13 Stop Req Medical Decision Narrative: In summary patient is a 73-year-old female who presents to the emergency department for evaluation of suicidal ideations. Patient is hemodynamic stable with a blood pressure 151/67 pulse 56 respiratory rate 17 temperature is 97.9 O2 sats 98% on room air upon arrival. Physical exam is remarkable for a well-nourished well-developed 73-year-old female who is otherwise in no acute distress. It is of note that patient is unable to ambulate without assistance and a walker. She currently denies any suicidal ideations but does admit to the utterance earlier today and states that she did it because she was angry at her son as she has been unable to reach him.. Differential diagnosis includes suicidal ideation versus manipulation. Initial workup will be conducted with hematologic labs urinalysis. Additionally a mental health evaluation has been requested from [facility]. Initial interventions include suicide precautions. Initial workup reviewed by me and via my conversation with the project development coordinator she does not meet criteria for inpatient admission however they recommend outpatient psychiatric evaluation. Upon repeat evaluation repeats that she is not suicidal denies self-harm but also lacks the ability to self-harm. Given this I recommended [facility] with [facility] to [facility] team. Patient have paper products with meals and no access to sharp objects. I was consulted by the JORGE, and we discussed the complexity of the problems being addressed. I approved the treatment and management plan for this patient's care in the Emergency Department, thus performing a substantive portion of the medical decision making. Erich Vee MD Critical Care <JAMARCUS Negron - Last Filed: 04/24/24 22:19> Critical Care Time Critical Care Time: No
[2024-04-24 18:36] LABS: Microscopic, Urine URINE MICROSCOPIC (MICROSCOPIC)
[2024-04-24 18:39] LABS: Basophils % 0.5 % (0.1-2.0); Eosinophils # 0.4 K/mm3 (0.0-0.4); Eosinophils % 4.6 % (0.1-12.0); Hematocrit 39.3 % (37.0-47.0); Hemoglobin 12.4 g/dL (12.2-16.2); Lymphocytes % 23.2 % (10-50); Mean Corpuscular HGB Conc 31.6 g/dL (31.8-35.4); Mean Corpuscular Hemoglobin 28.3 pg (27.0-31.2); Mean Corpuscular Volume 89.7 fl (81-99); Mean Platelet Volume 11.1 fl (7.4-10.4); Monocytes # 0.5 K/mm3 (0.1-1.0); Monocytes % 6.2 % (1.7-9.3); Neutrophils # 5.7 K/mm3 (1.8-7.8); Neutrophils % 64.8 % (37.0-80.0); Platelet Count 141 K/mm3 (142-424); Red Blood Count 4.38 M/mm3 (4.20-5.40); Red Cell Distribution Width 14.4 % (11.5-17.5); White Blood Count 8.7 K/mm3 (4.8-10.8)
--- NOTE | 2024-04-24 18:40 | PC.NURSE ---
Gave pt drink and food, ok'ed by JAMARCUS
[2024-04-24 18:54] LABS: Albumin Level 4.2 g/dl (3.5-5.0); Chloride 104 mmol/L (98-107); Potassium 4.7 mmoL/L (3.5-5.1); Sodium 140 mmol/L (136-145)
[2024-04-24 18:57] LABS: Alanine Aminotransferase 18 U/L (12-78); Albumin/Globulin Ratio 1.4 (1.1-1.8); Alkaline Phosphatase 150 U/L (38-126); Anion Gap 9.7 mEq/L (5-15); Aspartate Amino Transferase 23 U/L (14-36); Bilirubin,Total 0.4 mg/dl (0.2-1.3); Blood Urea Nitrogen 22 mg/dl (7-17); Calcium 9.7 mg/dl (8.4-10.2); Carbon Dioxide 31 mmol/L (22.0-30.0); Creatinine Clearance Estimated 41 mL/min (50-200); Estimated Glomerular Filt Rate 44 ml/min (>60); GFR (African American) 53 ML/MIN (>60); Globulin 2.9 g/dL (1.3-3.2); Glucose 112 mg/dl (74-100); Magnesium 1.8 mg/dl (1.6-2.3); Total Protein,Serum 7.1 g/dl (6.3-8.2)
[2024-04-24 19:10] LABS: Troponin I 0.01 ng/ml (0.00-0.034)
--- NOTE | 2024-04-24 19:16 | PC.NURSE ---
Son on the phone speaking with provider at this time. Sitter remains at the bedside with suicide precautions in place. NAD noted, RR even and non labored.
--- NOTE | 2024-04-24 19:17 | PC.NURSE ---
Oliver CRUM s/w pt's son on the phone
--- NOTE | 2024-04-24 19:22 | PC.NURSE ---
Oliver is speaking with pt Son at this time
[2024-04-24 19:40] LABS: Bilirubin,Urine Negative (Negative); Blood, Urine TRACE-I (Negative); Color,Urine YELLOW (Yellow); Glucose,Urine (UA) 2+ (Negative); Ketones,Urine Negative (Negative); Leukocyte Esterase,Urine 2+ (Negative); Nitrate,Urine POSITIVE (Negative); Protein,Urine Negative (Negative); Urobilinogen,Urine 0.2 EU/dl (0.2)
--- NOTE | 2024-04-24 19:45 | PC.NURSE ---
194- Contacting [facility] for geriatric pysch consult. Reports that their social worker aide does not come in until the AM. Reports that it would be best to call back in the AM if patient is still here and set up evaulation.
[2024-04-24 19:54] LABS: Appearance,Urine Slightly Cloudy (Clear)
--- NOTE | 2024-04-24 20:17 | PC.NURSE ---
2010- [facility] contacted, provider speaking with intake at this time.
--- NOTE | 2024-04-24 20:30 | PC.NURSE ---
behavioral health said bthey would call back when all the requested papers have been faxed. papers have been faxed at this time.
[2024-04-24 21:07] LABS: Bacteria,Urine 2+ /lpf; WBC,Urine 50-100 #/hpf (0-3)
[2024-04-24 21:08] LABS: Yeast,Urine 2+ /lpf
--- NOTE | 2024-04-24 22:00 | PC.NURSE ---
gave patient nutri grain bar for snack
--- NOTE | 2024-04-24 22:58 | PC.NURSE ---
report given to arden philippe [place] pending EMS transportation.
--- NOTE | 2024-04-28 12:56 | PC.NURSE ---
VENKATESH DISCUSSED WITH DR WAN, NEW RX GIVEN. SPOKE LINN WITH AD UPDATED, UA RESULTS FAXED TO [facility] [phone]
== END 2024-04-24 23:26 ==
PROVIDERS: Physician Assistant; Emergency Provider Emergency Medicine; PCP Family Medicine
DX: R45.851 Suicidal ideations (principal); F25.9 Schizoaffective disorder, unspecified; F32.A Depression, unspecified
CPT/HCPCS: 80053; 81001; 83735; 84484; 85025; 87086; 87088; 87186; 96365; 99285

== ENCOUNTER 2024-05-27 19:55 | Outpatient (CLI) | payer MEDICARE, MEDICAID, SELFPAY ==
[2024-05-27 20:22] LABS: Microscopic, Urine URINE MICROSCOPIC (MICROSCOPIC)
[2024-05-27 20:37] LABS: Appearance,Urine CLEAR (Clear); Bilirubin,Urine Negative (Negative); Blood, Urine MODERATE (Negative); Color,Urine YELLOW (Yellow); Glucose,Urine (UA) 250 (Negative); Ketones,Urine TRACE (Negative); Leukocyte Esterase,Urine Negative (Negative); Nitrate,Urine Negative (Negative); Protein,Urine TRACE (Negative); Specific Gravity, Urine >= 1.030 (1.005-1.030); Urobilinogen,Urine 0.2 EU/dl (0.2)
[2024-05-27 20:57] LABS: Bacteria,Urine Trace /lpf
[2024-05-27 21:01] LABS: Basophils # 0.1 K/mm3 (0-0.2); Basophils % 0.6 % (0.1-2.0); Eosinophils % 0.1 % (0.1-12.0); Hematocrit 41.4 % (37.0-47.0); Hemoglobin 12.2 g/dL (12.2-16.2); Lymphocytes # 1.6 K/mm3 (0.7-4.5); Lymphocytes % 11.6 % (10-50); Mean Corpuscular HGB Conc 29.5 g/dL (31.8-35.4); Mean Corpuscular Hemoglobin 27.9 pg (27.0-31.2); Mean Corpuscular Volume 94.7 fl (81-99); Mean Platelet Volume 11.7 fl (7.4-10.4); Monocytes % 7.3 % (1.7-9.3); Neutrophils # 11.1 K/mm3 (1.8-7.8); Neutrophils % 79.1 % (37.0-80.0); Platelet Count 148 K/mm3 (142-424); Red Blood Count 4.37 M/mm3 (4.20-5.40); Red Cell Distribution Width 15.3 % (11.5-17.5)
[2024-05-27 21:03] LABS: Chloride 103 mmol/L (98-107)
[2024-05-27 21:04] LABS: Potassium 5.9 mmoL/L (3.5-5.1); Sodium 142 mmol/L (136-145)
[2024-05-27 21:06] LABS: Blood Urea Nitrogen 29 mg/dl (7-17); Estimated Glomerular Filt Rate 23 ml/min (>60); GFR (African American) 28 ML/MIN (>60)
[2024-05-27 21:07] LABS: Alanine Aminotransferase 16 U/L (12-78); Albumin/Globulin Ratio 1.7 (1.1-1.8); Alkaline Phosphatase 105 U/L (38-126); Anion Gap 8.9 mEq/L (5-15); Aspartate Amino Transferase 21 U/L (14-36); Bilirubin,Total 0.5 mg/dl (0.2-1.3); Calcium 9.4 mg/dl (8.4-10.2); Carbon Dioxide 36 mmol/L (22.0-30.0); Globulin 2.4 g/dL (1.3-3.2); Glucose 154 mg/dl (74-100); Total Protein,Serum 6.4 g/dl (6.3-8.2)
== END 2024-05-27 23:59 | disposition home or self-care (01) ==
LOC: LAB.DROPOF 19:56
PROVIDERS: Internal Medicine Adolescent Medicine; PCP Nurse Practitioner Family; Visit Provider Nurse Practitioner Family
DX: E11.69 Type 2 diabetes mellitus with other specified complication (principal)
CPT/HCPCS: 80053; 81001; 85025

== ENCOUNTER 2024-05-30 09:53 | Observation (INO) | payer MEDICARE, MEDICAID, SELFPAY ==
[2024-05-30] VITALS (13 sets, daily range): BP systolic 98–146; BP diastolic 67–89; PULSE 54–108; RESP 15–28; TEMP 36.6–36.9; O2SAT 90–100; BMI 36.8; BMI 38.1
--- NOTE | 2024-05-30 09:59 | ECG_ITS ---
APPROVED REPORT Exam: Resting ECG HR:103 bpm ECG Measurements Heart Rate 103 AXES QRSd 87 QRS -34 QT 298 T 73 QTc 357 Conclusion Atrial fibrillation with RVR Intermittent PVCs No obvious acute ischemic change Leftward axis Electronically signed by : NANCY WAN, 05/31/2024 07:25:20
--- NOTE | 2024-05-30 10:17 | XR_ITS ---
FINAL REPORT CLINICAL HISTORY: soa, cough COMPARISON: 04/27/2021 FINDINGS: A portable view of the chest was obtained. Cardiac and mediastinal silhouettes are within normal limits. Left base atelectasis is present, new since the prior exam of 2021. There is no pleural effusion or pneumothorax. IMPRESSION: Left base atelectasis, new since the prior exam of 2021. Reviewed, Interpreted and Dictated by Cierra Correa MD Transcribed by Iva Mendes Authenticated and [facility]
--- NOTE | 2024-05-30 10:25 | PC.NURSE ---
respiratory aware of vbg
[2024-05-30 10:28] LABS: Basophils % 0.5 % (0.1-2.0); Eosinophils # 0.2 K/mm3 (0.0-0.4); Eosinophils % 2.7 % (0.1-12.0); Hematocrit 43.8 % (37.0-47.0); Hemoglobin 13.4 g/dL (12.2-16.2); Mean Corpuscular HGB Conc 30.6 g/dL (31.8-35.4); Mean Corpuscular Hemoglobin 28.1 pg (27.0-31.2); Mean Corpuscular Volume 91.8 fl (81-99); Mean Platelet Volume 10.6 fl (7.4-10.4); Monocytes # 0.7 K/mm3 (0.1-1.0); Monocytes % 8.7 % (1.7-9.3); Neutrophils % 62.4 % (37.0-80.0); Platelet Count 157 K/mm3 (142-424); Red Blood Count 4.77 M/mm3 (4.20-5.40); Red Cell Distribution Width 14.8 % (11.5-17.5)
[2024-05-30 10:33] LABS: Lactate Venous 1.8 mmol/L (0.4-2.0); VBG Base Excess 6.3 mmol/L (-2.4-2.3); VBG HCO3 30.2 mmol/L (23-30); VBG Oxygen Saturation 89.4 % (50-70); VBG PCO2 44.4 mmol/L (35-51); VBG PH 7.45 mmol/L (7.31-7.41); VBG PO2 54.7 mmol/L (28-40); VBG Total CO2 31.6 mmol/L (23-27)
[2024-05-30 10:36] LABS: Chloride 104 mmol/L (98-107); Potassium 4.8 mmoL/L (3.5-5.1); Sodium 143 mmol/L (136-145)
--- NOTE | 2024-05-30 10:37 | ED_ITS ---
Discharge Plan Disposition Patient Disposition: Home, Self-Care Chief Complaint: Shortness of Breath/Dyspnea Prescriptions Prescriptions: No Action atorvastatin 20 mg tablet 20 mg PO HS sertraline 100 mg tablet 200 mg PO DAILY docusate sodium [Colace] 100 mg capsule 100 mg PO DAILY acetaminophen [Tylenol Extra Strength] 500 mg tablet 500 mg PO Q6H PRN (Reason: pain) lactulose 20 gram/30 mL solution 20 g PO BID polyethylene glycol 3350 [Miralax] 17 gram/dose powder 17 g PO DAILY Galzin 25 mg (zinc) capsule 25 mg PO DAILY amlodipine 5 mg tablet 2.5 mg PO DAILY Qty: 15 4RF lisinopril 5 mg tablet 2.5 mg PO DAILY Qty: 15 4RF gabapentin 100 mg capsule 100 mg PO BID Qty: 60 5RF tramadol 50 mg tablet 50 mg PO BID PRN (Reason: pain) Qty: 60 0RF metformin 500 MG tablet 500 mg PO DAILY oxybutynin chloride 10 MG tablet extended release 24hr 10 mg PO DAILY clopidogrel 75 MG tablet 75 mg PO DAILY doxepin 10 MG capsule 30 mg PO HS omeprazole 40 MG capsule,delayed release(DR/EC) 40 mg PO DAILY calcium carbonate-vitamin D3 1 EACH tablet 1 each PO BID insulin glargine 100 UNIT/ML insulin pen 35 unit SQ HS bupropion HCl 150 MG tablet extended release 24 hr 150 mg PO DAILY trazodone 100 MG tablet 100 mg PO HS aspirin 81 MG tablet,chewable 81 mg PO DAILY aripiprazole 30 MG tablet 30 mg PO DAILY nitrofurantoin monohyd/m-cryst [Macrobid] 100 mg capsule 100 mg PO BID 5 Days Qty: 10 0RF Rx Instructions: must administer with a meal/food diclofenac sodium [Voltaren Arthritis Pain] 1 % gel 2 g topical QID Qty: 100 0RF Rx Instructions: apply to single elbow, wrist or hand; for hand includes palm/fingers/back of hand Referrals Follow up/Referrals: Rainer Asher MD [Primary Care Provider] - See instructions Clinical Impressions Clinical Impression: New onset a-fib, CHF exacerbation Print Language Print Language: Czech Discharge ED Provider: Erich Vee HPI General Chief Complaint: Shortness of Breath/Dyspnea Stated Complaint: irregular HR Time Seen by Provider: 05/30/24 09:55 Mode of Arrival: Ambulatory Source of Information: Patient, EMS and Medical Record Description of Symptoms (Recalled from ER Triage Doc. by RN): per shelter pt has been soa for 2 days with ams, staff placed her on oxygen 2 days ago, baseline is room air. Pt able to answer questions appropriately. History of Present Illness HPI narrative: Please note that above description of symptoms, in this electronic medical record under categorization of recalled from ER triage doctor by RN are reflective of an initial nursing assessment, however, is not reflective of my full history and physical exam that was personally taken and clarified. Consequentially, this preceding description of symptoms, which may include the patient's categorized chief complaint in the EMR, do not reflect my personal clinical impression, and the ultimate description of history of present illness and patient stated complaints should be deferred to this section of the note. Unless stated otherwise or congruent with this section of the note, additional signs, symptoms, or incongruence should be interpreted as inaccurate with my clinical impression. Related Data Home Medications ?Medication ?Instructions ?Recorded ?Confirmed atorvastatin 20 mg tablet 20 mg PO HS Cholesterol 02/17/18 04/05/24 sertraline 100 mg tablet 200 mg PO DAILY mood 02/17/18 04/05/24 calcium carbonate-vitamin D3 600 1 each PO BID Supplement 09/29/19 04/05/24 mg-125 unit tablet clopidogrel 75 mg tablet 75 mg PO DAILY antiplatelet 09/29/19 04/05/24 doxepin 10 mg capsule 30 mg PO HS sleep 09/29/19 04/05/24 insulin glargine 100 unit/mL (3 35 unit SQ HS Diabetes 09/29/19 04/05/24 mL) subcutaneous pen metformin 500 mg tablet 500 mg PO DAILY Diabetes 09/29/19 04/05/24 omeprazole 40 mg capsule,delayed 40 mg PO DAILY acid reflux 09/29/19 04/05/24 release oxybutynin chloride 10 mg 10 mg PO DAILY overactive bladder 09/29/19 04/05/24 tablet,extended release 24 hr aripiprazole 30 mg tablet 30 mg PO DAILY mood 05/17/20 04/05/24 aspirin 81 mg chewable tablet 81 mg PO DAILY heart health 05/17/20 04/05/24 bupropion HCl 150 mg 24 hr tablet, 150 mg PO DAILY Depression 05/17/20 04/05/24 extended release trazodone 100 mg tablet 100 mg PO HS Insomnia 05/17/20 04/05/24 acetaminophen 500 mg tablet 500 mg PO Q6H PRN pain 06/03/20 04/05/24 (Tylenol Extra Strength) docusate sodium 100 mg capsule 100 mg PO DAILY constipation 06/03/20 04/05/24 (Colace) lactulose 20 gram/30 mL oral 20 g PO BID constipation 06/03/20 04/05/24 solution polyethylene glycol 3350 17 17 g PO DAILY constipation 06/03/20 04/05/24 gram/dose oral powder (Miralax) zinc acetate 25 mg (zinc) capsule 25 mg PO DAILY supplement 06/03/20 04/05/24 (Galzin) Previous Rx's ?Medication ?Instructions ?Recorded amlodipine 5 mg tablet 2.5 mg (1/2 x 5 mg) PO DAILY 06/03/20 Hypertension #15 tabs lisinopril 5 mg tablet 2.5 mg (1/2 x 5 mg) PO DAILY 06/03/20 Hypertension #15 tabs gabapentin 100 mg capsule 100 mg PO BID Pain #60 caps 08/18/22 tramadol 50 mg tablet 50 mg PO BID PRN pain #60 tabs 09/03/22 diclofenac sodium 1 % topical gel 2 g topical QID #100 grams 12/09/23 (Voltaren Arthritis Pain) nitrofurantoin 100 mg PO BID 5 days #10 caps 04/28/24 monohydrate/macrocrystals 100 mg capsule (Macrobid) Allergies Allergy/AdvReac Type Severity Reaction Status Date / Time pentazocine (PENTAZOCINE) Allergy Intermediate CRAZY Verified 10/19/23 11:47 prochlorperazine Allergy Intermediate ITCHING Verified 10/19/23 11:47 (PROCHLORPERAZINE) lithium (LITHIUM) Allergy Unknown Verified 10/19/23 11:47 [facility] Disclaimer: The information contained in this section may have been updated after the patient was seen, as this information can be updated by other users. Medical History (Updated 05/30/24 @ 13:27 by Erich Vee MD) Depression Facial laceration Multiple bruises Fall from bed Contusion of right hip Puncture wound of forehead Traumatic hematoma of forehead Suicidal ideation Pre-operative cardiovascular examination Contusion of left hip Knee contusion Skin tear of forearm without complication Multiple falls Concussion without loss of consciousness Scalp laceration Fracture of rib of right side Contusion of rib on left side Malaise and fatigue Dehydration Elevated left ventricular end-diastolic pressure (LVEDP) Unstable angina pectoris Atypical chest pain Bronchitis Acute kidney injury Sinus bradycardia Renal insufficiency Shingles rash Family History Other Unknown family medical history Social History Smoking Status: Unknown if ever smoked alcohol intake: never substance use type: denies use current occupational status: other Travel in the last 8 weeks: None household members: other housing: shelter caffeine: No Have you lived/traveled outside [place] in past 30 days?: No Contact w/someone who lives/traveled outside US past 30 days?: No Exposure to someone with infectious disease in past 14 days?: No Do you have a fever (greater than 100.4 F or 38 C)?: No Have you tested positive for COVID-19: No Exposed to someone with COVID-19 in past 14 days?: No Do you have a sore throat?: No Do you have a cough?: No Do you have any weakness?: No Do you have any diarrhea?: No Are you experiencing any unusual bleeding?: No Do you have any muscle aches/pain?: No Do you have any abdominal pain?: No Are you experiencing loss of taste or smell?: No Other Medical History Have you received the Flu Vaccine for this season: Yes Have you received the Pneumonia Vaccine: Yes ROS Obtained: Yes All systems reviewed & no additional complaints except as documented Physical Exam General General appearance: alert, in no apparent distress and obese Comment: Chronically ill, but not acutely in distress Neck Neck exam: Present trachea midline Chest Chest inspection: Present normal inspection and symmetric chest wall rise Respiratory Respiratory exam: Present normal lung sounds bilaterally; Absent respiratory distress, wheezes, stridor, accessory muscle use or prolonged expiratory phase Cardiovascular Cardiovascular exam: Present tachycardia, irregular rhythm and other (Pulses equal and symmetric in upper and lower extremities) Abdominal Exam Abdominal exam: Present soft; Absent distention or tenderness Extremities Exam Extremities exam: Absent edema Neurological Exam Neurological exam: Present alert, oriented X3 and CN II-XII intact Skin Skin exam: Present warm and dry; Absent cyanosis, diaphoresis or pallor HEART Score HEART Score HEART Score assessment performed?: Yes History (anamnesis): Slightly suspicious ECG: Normal Age: >65 years Risk factors: 3 or more risk factors Troponin: 1-3x normal limit HEART Score: 5 Critical Care Critical Care Time Critical Care Time: Yes (cardiac) Attestation: On 05/30/24, the high probability of a clinically significant, sudden or life threatening deterioration of the following system(s) required my full and direct attention, intervention and personal management. The time I documented below is in addition to time spent performing reported procedures but includes the following listed in this critical care notation. Total Time Total Critical Care Time: 45 Medical Decision Making Medical Records Medical records reviewed: Yes I reviewed the patient's medical records. Kristopher Inquiry Pt receiving controlled substance: No Kristopher was queried for this patient: No Vital Signs Vital Signs: 05/30/24 10:25 05/30/24 10:26 05/30/24 10:30 Temperature 98.3 F Temperature Source Oral Pulse Rate 61 67 Pulse Rate [Left Radial] 104 H Respiratory Rate 24 19 17 Blood Pressure 134/77 115/76 Blood Pressure [Right Arm] 132/78 Blood Pressure Mean [Right Arm] 96 02 Sat by Pulse Oximetry 94 L 96 91 L Oxygen Delivery Method Room Air 05/30/24 11:01 05/30/24 11:30 Temperature Temperature Source Pulse Rate 54 L 62 Pulse Rate [Left Radial] Respiratory Rate 26 H 22 Blood Pressure 98/67 L 114/76 Blood Pressure [Right Arm] Blood Pressure Mean [Right Arm] 02 Sat by Pulse Oximetry 100 100 Oxygen Delivery Method Nasal Cannula Lab Data Labs: Lab Results 05/30/24 10:20: WBC 8.0 D, RBC 4.77, Hgb 13.4, Hct 43.8, MCV 91.8, MCH 28.1, M CHC 30.6 L, RDW 14.8, Plt Count 157, MPV 10.6 H, Neut % (Auto) 62.4, Lymph % (Auto) 25.0, Sierra % (Auto) 8.7, Eos % (Auto) 2.7, Baso % (Auto) 0.5, Neut # (Auto) 5.0, Lymph # (Auto) 2.0, Sierra # (Auto) 0.7, Eos # (Auto) 0.2, Baso # (Auto) 0.0, PT 12.1, INR 1.09, APTT 23.7, D-Dimer 0.94 H, Sodium 143, Potassium 4.8, Chloride 104, Carbon Dioxide 36 H, Anion Gap 7.8, BUN 31 H, Creatinine 1.30 H D, Estimated Creat Clear 68, Estimated GFR 40 L, Est GFR ( Amer) 49 L D , Glucose 117 H, Lactate 1.1, Calcium 10.2, Magnesium 1.8, Total Bilirubin 0.5, AST 28 D, ALT 19, Alkaline Phosphatase 103, Troponin I 0.05 H, NT-Pro-B Natriuret Pep 6890 H, Total Protein 7.0, Albumin 4.0, Globulin 3.0, Albumin/Globulin Ratio 1.3, Procalcitonin 0.090, TSH 4.11, Thyroxine (T4) 5.6, HCV Ab LUZ ELENA w/Rflx PCR Qn Negative, HIV Ag/Ab Combo Qual Negative 05/30/24 10:24: VBG pH 7.45 H, VBG pCO2 44.4, VBG pO2 54.7 H, VBG HCO3 30.2 H, V BG Total CO2 31.6 H, VBG O2 Saturation 89.4 H, VBG Base Excess 6.3 H, VBG Lactic Acid 1.8 05/30/24 10:20 05/30/24 10:20 Response Orders (Tests/Meds): ED MEDICATIONS Discontinued Medications Generic Name Dose Route Start Last Admin Trade Name Freq PRN Reason Stop Dose Admin Acetaminophen 1,000 mg 05/30/24 12:04 05/30/24 12:06 Acetaminophen 1,000mg/100ml Vial IV 05/30/24 12:05 1,000 mg ONCE ONE Administration Aspirin 324 mg 05/30/24 11:29 05/30/24 11:48 Aspirin 81mg Chewable Tablet PO 05/30/24 11:30 324 mg ONCE ONE Administration Furosemide 60 mg 05/30/24 11:26 05/30/24 11:35 Furosemide 40mg/4ml Vial IV 05/30/24 11:27 60 mg ONCE ONE Administration Iopamidol 80 ml 05/30/24 12:27 05/30/24 12:28 Iopamidol-370 (76%);100ml Bottle IV 05/30/24 12:28 80 ml ONCE ONE Administration Ketorolac Tromethamine 15 mg 05/30/24 11:44 05/30/24 11:47 Ketorolac 30mg/Ml Vial IV 05/30/24 11:45 15 mg ONCE ONE Administration Sodium Chloride 10 ml 05/30/24 12:27 05/30/24 12:28 Sodium Chloride 0.9% 10ml Syr (Rad Only) IV 05/30/24 12:28 10 ml ONCE ONE Administration Sodium Chloride 50 ml 05/30/24 12:27 05/30/24 12:28 0.9 % Sodium Chloride 50 Ml Vial IV 05/30/24 12:28 50 ml ONCE ONE Administration ORDERS Category Date Time Status CT angio chest PE protocol Stat Cat Scan 05/30/24 11:26 Taken XR chest portable Stat Exams 05/30/24 10:17 Completed Complete Blood Count Auto Diff Stat Lab 05/30/24 10:20 Completed Comprehensive Metabolic Panel Stat Lab 05/30/24 10:20 Completed D-Dimer Stat Lab 05/30/24 10:20 Completed HIV Combo Stat Lab 05/30/24 10:20 Completed Hepatitis C Ab Qual. W/ RFX Stat Lab 05/30/24 10:20 Completed Lactic Acid Stat Lab 05/30/24 10:20 Completed Magnesium Stat Lab 05/30/24 10:20 Completed NT Pro Brain Natriuretic Pep. Stat Lab 05/30/24 10:20 Completed PT INR [Prothrombin Time INR] Stat Lab 05/30/24 10:20 Completed PTT [Activated Partial Thrombo Time] Stat Lab 05/30/24 10:20 Completed Procalcitonin Stat Lab 05/30/24 10:20 Completed T4 (Thyroxine) Stat Lab 05/30/24 10:20 Completed TSH [Thyroid Stimulating Hormone] Stat Lab 05/30/24 10:20 Completed Troponin I Q3H Lab 05/30/24 13:30 Ordered Troponin I Q3H Lab 05/30/24 16:30 Ordered Troponin I Stat Lab 05/30/24 10:20 Completed Urinalysis and Microscopic Stat Lab 05/30/24 10:19 Ordered Blood Culture Stat Micro 05/30/24 10:30 Received Venous Blood Gas Stat RT 05/30/24 10:24 Completed MDM Narrative Medical Decision Narrative: 73-year-old female history of hypertension, hyperlipidemia, anxiety, CKD, type 2 diabetes, CHF, ACS, psychiatric comorbidities 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 They state that she has been more short of breath for the past 2 days or so at her shelter. They started her on oxygen for comfort 2 days prior to this, but states she has still been more lethargic than usual. Patient denies any concerns at this time. No chest pain, shortness of breath, cough, nausea, vomiting,, urinary symptoms, fevers or chills, and does not feel that she is much deviated from her baseline. Does have a cough, but states this is normal for her. History was obtained via conversation with patient, EMS. On arrival, patient hemodynamically stable, alert, oriented x 3, appropriate, GCS 15, moving all extremities spontaneously, pupils equal and reactive to light. Full physical exam performed and significant for chronically ill-appearing female no acute distress. Obese. Nontachypneic. Lungs are clear anterior and posteriorly. She does have tachycardic, irregularly irregular rhythm consistent with probable A-fib. No murmurs gallops or rubs. No lower extremity edema. Pulses equal and symmetric in upper and lower extremities. Abdomen soft, nontender, nondistended. Differential includes urinary tract infection, pneumonia, PE, pneumothorax, sepsis, among others. Patient placed on continuous cardiac monitoring and continuous pulse ox with initial blood pressure 134/77, heart rate 61, saturation 94% on room air. Independent interpretation of EKG shows A-fib with RVR 103 bpm with QRS 87, QTc 357. Leftward axis. No acute ischemic change. Intermittent PVCs. Workup independently interpreted and significant for nonactionable CBC. Chemistry with stable CKD creatinine 1.3 and BUN 31. Troponin elevated 0.05, BNP elevated at 6890. Patient given 324 mg aspirin as well as IV Lasix 60 mg. On independent interpretation of imaging, cardiomegaly and pulmonary venous congestion with no overt edema. Concern for bilateral small pleural effusions. See radiology read for full review of final results. Heart score 5. Given elevated D-dimer, new onset A-fib, reported need for oxygen at shelter, CT PE was ordered. On independent interpretation, no pulmonary embolus, dependent edema without effusions. On reevaluation, patient having abdominal pain, Toradol was administered. Given patient presentation, workup, history, this most likely represents CHF exacerbatio and new onset A-fib. Examiner Of Currency disclaimer Much of this encounter note is an electronic circular knife cutter machine spoken language to printed text. Electronic circular knife cutter machine of the spoken language may permit errors. Although I have reviewed the note, some errors may still exist.
[2024-05-30 10:39] LABS: Alanine Aminotransferase 19 U/L (12-78); Alkaline Phosphatase 103 U/L (38-126); Anion Gap 7.8 mEq/L (5-15); Aspartate Amino Transferase 28 U/L (14-36); Bilirubin,Total 0.5 mg/dl (0.2-1.3); Blood Urea Nitrogen 31 mg/dl (7-17); Carbon Dioxide 36 mmol/L (22.0-30.0); Creatinine Clearance Estimated 68 mL/min (50-200); Estimated Glomerular Filt Rate 40 ml/min (>60); GFR (African American) 49 ML/MIN (>60)
[2024-05-30 10:40] LABS: Activated Partial Thrombo Time 23.7 seconds (22.8-30.6); Calcium 10.2 mg/dl (8.4-10.2); Glucose 117 mg/dl (74-100); INR 1.09 (0.9-1.1); Lactic Acid 1.1 mmol/L (0.7-2.1); Magnesium 1.8 mg/dl (1.6-2.3); Prothrombin Time 12.1 seconds (10.1-12.5)
[2024-05-30 10:49] LABS: NT Pro Brain Natriuretic Pep. 6890 pg/mL (0-125)
[2024-05-30 10:52] LABS: Troponin I 0.05 ng/ml (0.00-0.034)
[2024-05-30 10:56] LABS: D-Dimer 0.94 ug/mL (0.0-0.5); T4 (Thyroxine) 5.6 ug/dl (5.53-11.0)
[2024-05-30 11:10] LABS: Thyroid Stimulating Hormone 4.11 uIU/mL (0.465-4.68)
--- NOTE | 2024-05-30 11:12 | PC.NURSE ---
per [facility] chart pt was recently started on cefednir on 05/28 for uti. aware
--- NOTE | 2024-05-30 11:26 | CT_ITS ---
FINAL REPORT TECHNIQUE: Postcontrast axial images of the chest were performed in a CTA protocol. This study was performed with techniques to keep radiation doses as low as reasonably achievable, (ALARA). Individualized dose reduction technique using automated exposure control or adjustment of mA and/or kV according to the patient's size were employed. CLINICAL HISTORY: New A-fib, elevated dimer, shortness of breath FINDINGS: The heart is enlarged. No adenopathy is identified. No pleural or pericardial effusion is identified. The thoracic aorta is normal in caliber with no focal aneurysm or dissection identified. There is no filling defect to suggest pulmonary embolism. Bilateral groundglass opacities are nonspecific. Mild edema not excluded. The images of the upper abdomen demonstrate mild splenomegaly. IMPRESSION: No evidence for PE or dissection on this exam. Cardiomegaly. Groundglass opacities which may represent pulmonary edema. Reviewed, Interpreted and Dictated by Cierra Correa MD Transcribed by Adela Akbar Authenticated and [facility]
[2024-05-30] MEDS: FUROSEMIDE 40MG/4ML VIAL 60 MG IV (11:35)
[2024-05-30] MEDS: KETOROLAC 30MG/ML VIAL 15 MG IV (11:47)
[2024-05-30] MEDS: ASPIRIN 81MG CHEWABLE TABLET 324 MG PO (11:48)
--- NOTE | 2024-05-30 12:03 | PC.NURSE ---
purewick placed on pt at this time
[2024-05-30] MEDS: ACETAMINOPHEN 1,000MG/100ML VIAL 1000 MG IV (12:06)
[2024-05-30 12:20] LABS: HIV Combo NEGATIVE (Negative)
[2024-05-30 12:28] LABS: Hepatitis C Ab Qual. W/ RFX NEGATIVE (Negative)
[2024-05-30] MEDS: 0.9 % SODIUM CHLORIDE 50 ML VIAL IV (12:28)
[2024-05-30] MEDS: SODIUM CHLORIDE 0.9% 10ML SYR (RAD ONLY) 10 ML IV (12:28)
[2024-05-30] MEDS: IOPAMIDOL-370 (76%);100ML BOTTLE 80 ML IV (12:28)
[2024-05-30 12:58] LABS: Albumin/Globulin Ratio 1.3 (1.1-1.8)
--- NOTE | 2024-05-30 13:08 | CA_ITS ---
APPROVED REPORT EXAM: Comprehensive 2D, Doppler, and color-flow Echocardiogram Wooden Barrel Mechanic: Laura Berger CRT Ht: 5 ft 8 in Wt: 242lbs BSA: 2.22 BP: 114/76 mmHg Indications: Congestive Heart Failure, Shortness of Breath, CVA/TIA, Atrial Fibrillation, Peripheral Edema, Hyperlipidemia, Hypertension/HDD, CKD, CVA, CA, DM TDE very limited images pt flat on back. M-Mode Dimensions RVDd 3.27 cm (0.9-2.6) LA Diam 3.37 cm (1.9-4.0) LVDd 3.52 cm (3.5-5.7) LVDs 2.29 cm (3.5-5.7) IVSd 2.55 cm (0.6-1.1) PWd 0.85 cm (0.6-1.1) EF (Teich) 65.30% FS 34.90% EDV (Teich) 51.60 mL ESV (Teich) 17.90 mL Aortic Valve AO Peak GR. 11.80 mmHg Pulmonary Valve PV Peak Velocity 86.0 (50-150 cm/s) Tricuspid Valve TR P. Velocity 209.00 cm/s RAP Estimate 10.00 mmHg RVSP 27.40 mmHg Left Ventricle The left ventricle is normal size. The left ventricular systolic function is normal. The left ventricular ejection fraction is within the normal range. There is increased LV wall thickness. There is normal LV segmental wall motion. Diastolic function is indeterminate. LVEF is 55%. Right Ventricle The right ventricle is not well-visualized. Atria The left atrium size is normal. The right atrium is not well-visualized. Aortic Valve The aortic valve is mildly thickened. There is no aortic valvular stenosis. Trace aortic regurgitation. Mitral Valve The mitral valve is normal in structure. Trace mitral regurgitation. Tricuspid Valve The tricuspid valve leaflets are not well-visualized. Pulmonic Valve The pulmonic valve is not well-visualized. Great Vessels The aortic root is normal in size. The IVC is not well-visualized. Pericardium There is no pericardial effusion. Other Information Study Quality: Technically Difficult Conclusion Technically difficult study due to poor acoustic windows. Normal LV systolic function. RV not well-visualized. No significant AV or MV stenosis or regurgitation. The TV and PV are not well-visualized. Electronically signed by : Liz Field MD 06/01/2024 13:04:38
--- NOTE | 2024-05-30 13:26 | PC.NURSE ---
HS aware of admission
--- NOTE | 2024-05-30 13:55 | PC.NURSE ---
report called to Charity BANSAL
--- NOTE | 2024-05-30 14:04 | P.CONCA_ITS ---
History of Present Illness History of Present Illness Consult date: 05/30/24 Requesting physician: Shane Barillas Consult reason: shortness of breath Chief complaint: SOA Additional Medical History:: 1. CAD, mild A. LHC, 06/2020, Mild CAD of LAD and RCA. Circumflex normal. EF 65%. LVEDP 10 mmHg. B. History of CA per patient approximately 2010, [facility], no significant CAD. 2. Hypertension A. Echo, 05/2020, LVEF 55%, moderate LAE, mild conc LVH with no regional WMA, calcified mitral valve without stenosis, mild MR. RVSP 38 mm Hg. 3. Hyperlipidemia A. Statin therapy 4. Obesity 5. Psychiatric issues 6. Diabetes mellitus type 2 7. History of esophageal stricture status post dilation 8. Thrombocytopenia A. Resolved in 2024 9. History of CKD, stage III A. Creatinine 1.3, GFR 40 on 05/30/2024 B. Chronic anemia 10. Shortness of breath with lethargy, 05/30/2024 A. Elevated D-dimer but CTA of the chest negative for PE. 11. Newly diagnosed A-fib, 05/30/2024 A. CHADS-VASC score of 6 (9.8% adjusted stroke rate per year) B. Remote history of CVA (approximately 2009 that required intense therapy per patient). 12. CHF with elevated BNP at 6890 with groundglass opacities on chest CTA, 05/30/2024 13. Ambulatory issues with multiple falls by history History of present illness: 73-year-old care home resident admitted through the ER for increasing shortness of breath of the last 2 days despite supplemental oxygen. Workup in the ER pertinent for new onset atrial fibrillation on EKG and CTA of the chest negative for PE but noticing groundglass opacities in the lungs with concern for CHF. Mildly elevated troponin at 0.05 noted. Cardiology consulted for evaluation recommendations. Patient was given full dose aspirin and started on IV Lasix. Despite history of falls, patient is now resident of [place] and with new onset A. fib, prior CVA and high CHADS-VASC score, will start anticoagulation. [facility] Disclaimer: The information contained in this section may have been updated after the eboni patel was seen, as this information can be updated by other users. Medical History (Updated 05/30/24 @ 15:07 by Charity Michael RN) Heart attack Left sided cerebral hemisphere cerebrovascular accident (CVA) CVA (cerebral vascular accident) Depression Facial laceration Multiple bruises Fall from bed Contusion of right hip Puncture wound of forehead Traumatic hematoma of forehead Suicidal ideation Pre-operative cardiovascular examination Contusion of left hip Knee contusion Skin tear of forearm without complication Multiple falls Concussion without loss of consciousness Scalp laceration Fracture of rib of right side Contusion of rib on left side Malaise and fatigue Dehydration Elevated left ventricular end-diastolic pressure (LVEDP) Unstable angina pectoris Atypical chest pain Bronchitis Acute kidney injury Sinus bradycardia Renal insufficiency Shingles rash Surgical History (Updated 05/30/24 @ 15:07 by Charity Michael RN) H/O heart artery stent Family History Other Unknown family medical history Social History (Updated 05/30/24 @ 15:08 by Charity Michael RN) Smoking Status: Unknown if ever smoked alcohol intake: never substance use type: denies use current occupational status: retired, disabled and other Travel in the last 8 weeks: None household members: other housing: care home caffeine: No Have you lived/traveled outside US in past 30 days?: No Contact w/someone who lives/traveled outside US past 30 days?: No Exposure to someone with infectious disease in past 14 days?: No Do you have a fever (greater than 100.4 F or 38 C)?: No Have you tested positive for COVID-19: No Exposed to someone with COVID-19 in past 14 days?: No Do you have a sore throat?: No Do you have a cough?: No Do you have any weakness?: No Do you have any diarrhea?: No Are you experiencing any unusual bleeding?: No Do you have any muscle aches/pain?: No Do you have any abdominal pain?: No Are you experiencing loss of taste or smell?: No Exam Data for Last 24 hours Vital signs and Labs for Last 24 Hours: Temp Pulse Resp BP Pulse Ox O2 Del Method 98.3 F 61 16 136/75 94 L Room Air 05/30/24 10:26 05/30/24 13:31 05/30/24 13:31 05/30/24 13:31 05/30/24 13:31 05/30/24 12:54 Laboratory Results - last 24 hr 05/30/24 10:20: WBC 8.0 D, RBC 4.77, Hgb 13.4, Hct 43.8, MCV 91.8, MCH 28.1, MCHC 30.6 L, RDW 14.8, Plt Count 157, MPV 10.6 H, Neut % (Auto) 62.4, Lymph % (Auto) 25.0, [place] % (Auto) 8.7, Eos % (Auto) 2.7, Baso % (Auto) 0.5, Neut # (Auto) 5.0, Lymph # (Auto) 2.0, [place] # (Auto) 0.7, Eos # (Auto) 0.2, Baso # (Auto) 0.0, PT 12.1, INR 1.09, APTT 23.7, D-Dimer 0.94 H, Sodium 143, Potassium 4.8, Chloride 104, Carbon Dioxide 36 H, Anion Gap 7.8, BUN 31 H, Creatinine 1.30 H D, Estimated Creat Clear 68, Estimated GFR 40 L, Est GFR ( Amer) 49 L D , Glucose 117 H, Lactate 1.1, Calcium 10.2, Magnesium 1.8, Total Bilirubin 0.5, AST 28 D, ALT 19, Alkaline Phosphatase 103, Troponin I 0.05 H, NT-Pro-B Natriu ret Pep 6890 H, Total Protein 7.0, Albumin 4.0, Globulin 3.0, Albumin/Globulin Ratio 1.3, Procalcitonin 0.090, TSH 4.11, Thyroxine (T4) 5.6, HCV Ab LUZ ELENA w/Rflx PCR Qn Negative, HIV Ag/Ab Combo Qual Negative 05/30/24 10:24: VBG pH 7.45 H, VBG pCO2 44.4, VBG pO2 54.7 H, VBG HCO3 30.2 H, VBG Total CO2 31.6 H, VBG O2 Saturation 89.4 H, VBG Base Excess 6.3 H, VBG Lactic Acid 1.8 I & O for Last 24 hours: Intake & Output 05/28/24 05/29/24 05/30/24 05/31/24 11:59 11:59 11:59 11:59 Weight 242 lb Meds Home Medications and Allergies Home Medications ?Medication ?Instructions ?Recorded ?Confirmed ?Type atorvastatin 20 mg tablet 20 mg PO HS 02/17/18 05/30/24 History sertraline 100 mg tablet 200 mg PO HS 02/17/18 05/30/24 History calcium carbonate-vitamin D3 600 1 each PO BID 09/29/19 05/30/24 History mg-125 unit tablet clopidogrel 75 mg tablet 75 mg PO DAILY 09/29/19 05/30/24 History doxepin 10 mg capsule 30 mg PO HS sleep 09/29/19 04/05/24 History insulin glargine 100 unit/mL (3 35 unit SQ HS 09/29/19 05/30/24 History mL) subcutaneous pen metformin 500 mg tablet 500 mg PO DAILY Diabetes 09/29/19 04/05/24 History omeprazole 40 mg capsule,delayed 40 mg PO DAILY acid reflux 09/29/19 04/05/24 History release oxybutynin chloride 10 mg 10 mg PO DAILY overactive bladder 09/29/19 04/05/24 History tablet,extended release 24 hr aripiprazole 30 mg tablet 30 mg PO HS 05/17/20 05/30/24 History aspirin 81 mg chewable tablet 81 mg PO DAILY 05/17/20 05/30/24 History bupropion HCl 150 mg 24 hr tablet, 150 mg PO DAILY Depression 05/17/20 04/05/24 History extended release trazodone 100 mg tablet 100 mg PO HS Insomnia 05/17/20 04/05/24 History acetaminophen 500 mg tablet 500 mg PO Q6H PRN pain 06/03/20 04/05/24 History (Tylenol Extra Strength) docusate sodium 100 mg capsule 100 mg PO DAILY 06/03/20 05/30/24 History (Colace) lactulose 20 gram/30 mL oral 30 ml PO Q12HP PRN Constipation 06/03/20 05/30/24 History solution lisinopril 5 mg tablet 2.5 mg (1/2 x 5 mg) PO DAILY 06/03/20 04/05/24 Rx Hypertension #15 tabs polyethylene glycol 3350 17 17 g PO DAILY 06/03/20 05/30/24 History gram/dose oral powder (Miralax) zinc acetate 25 mg (zinc) capsule 25 mg PO DAILY supplement 06/03/20 04/05/24 History (Galzin) gabapentin 100 mg capsule 100 mg PO BID Pain #60 caps 08/18/22 04/05/24 Rx diclofenac sodium 1 % topical gel 2 g topical QID #100 grams 12/09/23 04/05/24 Rx (Voltaren Arthritis Pain) nitrofurantoin 100 mg PO BID 5 days #10 caps 04/28/24 Rx monohydrate/macrocrystals 100 mg capsule (Macrobid) aluminum hydrox-magnesium carb 95 30 ml PO Q8HP PRN Indigestion 05/30/24 05/30/24 History mg-358 mg/15 mL oral suspension amlodipine 5 mg tablet 5 mg PO DAILY 05/30/24 05/30/24 History cefdinir 300 mg capsule 300 mg PO BID 05/30/24 05/30/24 History dapagliflozin propanediol 10 mg 10 mg PO DAILY 05/30/24 05/30/24 History tablet (Farxiga) divalproex 250 mg tablet,delayed 250 mg PO BID 05/30/24 05/30/24 History release ibuprofen 400 mg tablet 400 mg PO Q12HP PRN Breakthrough 05/30/24 05/30/24 History Pain, Mild melatonin 10 mg tablet 10 mg PO HS 05/30/24 05/30/24 History nystatin 100,000 unit/gram topical 1 applic topical TID 05/30/24 05/30/24 History powder pantoprazole 20 mg tablet,delayed 20 mg PO HS 05/30/24 05/30/24 History release tramadol 25 mg tablet 25 mg PO Q12HP PRN Moderate Pain 05/30/24 05/30/24 History (Scale Score 5-6) trolamine salicylate 10 % topical 1 applic topical TID 05/30/24 05/30/24 History cream New Prescriptions to Start Prescriptions: Allergies Allergy/AdvReac Type Severity Reaction Status Date / Time pentazocine (PENTAZOCINE) Allergy Intermediate CRAZY Verified 10/19/23 11:47 prochlorperazine Allergy Intermediate ITCHING Verified 10/19/23 11:47 (PROCHLORPERAZINE) lithium (LITHIUM) Allergy Unknown Verified 10/19/23 11:47 Assessment and Plan *Assessment and plan (1) CHF exacerbation: Status: Acute Qualifiers: Heart failure type: unspecified Qualified Code(s): I50.9 - Heart failure, unspecified Category: Medical Code(s): I50.9 - Heart failure, unspecified (2) New onset a-fib: Status: Acute Category: Medical Code(s): I48.91 - Unspecified atrial fibrillation (3) Multiple falls: Status: Chronic Category: Medical Code(s): R29.6 - Repeated falls (4) CKD (chronic kidney disease) stage 3, GFR 30-59 ml/min: Status: Chronic Qualifiers: Chronic kidney disease stage 3 subtype: unspecified whether 3a or 3b Qualified Code(s): N18.30 - Chronic kidney disease, stage 3 unspecified Category: Medical Code(s): N18.30 - Chronic kidney disease, stage 3 unspecified (5) Diabetes: Status: Chronic Qualifiers: Diabetes mellitus complication status: with other specified complication Diabetes mellitus skilled nursing insulin use: without terminal carman use Diabetes mellitus type: type 2 Qualified Code(s): E11.69 - Type 2 diabetes mellitus with other specified complication Category: Medical Code(s): E11.9 - Type 2 diabetes mellitus without complications Plan 1. Worsening SOA with elevated BNP and evidence of fluid on chest CTA -CHF, newly diagnosed -check echo -IV diuretics 2. Newly diagnosed A. fib with remote history of CVA -CHADS VASC of 6 but frequent falls so -thyroid normal -Add low dose metoprolol for rate control -continue lisinopril 3. DM -defer to Hospitalist -continue Farxiga 4. CKD stage III -monitor with diuretic use -on lisinopril 5. Mild CAD by cath 2020 -stop aspirin due to starting anticoagulation -continue plavix 6. Hyperlipidemia -on statin Check echo consider anticoagulation if falls not an issue since she is at [facility] Add metoprolol for rate control
--- NOTE | 2024-05-30 14:05 | SW/DCPLANNER ---
Addendum entered by Lauren Andrade 05/31/24 10:42: I have updated Miri w/ [facility] that patient will return today [facility] level of care. Original Note: This patient currently resides at [facility] level of care. I will continue to follow up w/ Miri at [facility] until patient is medically stable for discharge. Discharge date is unknown at this time. Updated patient information will be faxed.
[2024-05-30 14:08] LABS: Troponin I 0.05 ng/ml (0.00-0.034)
--- NOTE | 2024-05-30 14:11 | PC.NURSE ---
arrived by stretcher from ED
--- NOTE | 2024-05-30 14:43 | PC.NURSE ---
Unable to reach son at this time to verify code status.
--- NOTE | 2024-05-30 15:33 | P.CONPHA_ITS ---
Pharmacy Intervention Comments: MEDICATION RECONCILIATION COMPLETE USING MAR FROM [facility].
--- NOTE | 2024-05-30 15:33 | HMH.PHAINT1 ---
Pharmacy Intervention Comments: MEDICATION RECONCILIATION COMPLETE USING MAR FROM [facility].
[2024-05-30 17:13] LABS: Troponin I 0.05 ng/ml (0.00-0.034)
--- NOTE | 2024-05-30 17:30 | PC.NURSE ---
Pt is A&o x3. Sitting up in the bed with no complaints other then she is hungry and would like something to eat. Awaiting dinner tray at this time. Pt remains afib on telemetry. VSS. Call light within reach.
[2024-05-30] MEDS: METOPROLOL TARTRATE 25MG TABLET 25 MG PO ×2 (17:48→20:36)
--- NOTE | 2024-05-30 18:02 | P.HP_ITS ---
History of Present Illness *Admission Date: 05/30/24 *Reason for visit:: Shortness of breath *History of present illness: Faby Palm is a 73-year-old female with a medical history significant for remote IA with no stents, CVA, hypertension, type 2 diabetes, mood disorder who presents with progressive shortness of breath over the past few days. Patient is a resident at [facility] who mostly wheelchair-bound. She states over the past few days she has become increasingly short of breath with no cough, chest pain. She does endorse several week history of orthopnea. Workup in the ED significant for BNP 6008 2090, troponin 0.05, D-dimer 0.94. CTA chest suggestive of pulmonary edema. On room air. Case discussed with ED provider and decision was made to admit patient for suspected new onset heart failure. [facility] Disclaimer: The information contained in this section may have been updated after the patient was seen, as this information can be updated by other users. Medical History (Updated 05/30/24 @ 15:07 by Charity Michael RN) Heart attack Left sided cerebral hemisphere cerebrovascular accident (CVA) CVA (cerebral vascular accident) Depression Facial laceration Multiple bruises Fall from bed Contusion of right hip Puncture wound of forehead Traumatic hematoma of forehead Suicidal ideation Pre-operative cardiovascular examination Contusion of left hip Knee contusion Skin tear of forearm without complication Multiple falls Concussion without loss of consciousness Scalp laceration Fracture of rib of right side Contusion of rib on left side Malaise and fatigue Dehydration Elevated left ventricular end-diastolic pressure (LVEDP) Unstable angina pectoris Atypical chest pain Bronchitis Acute kidney injury Sinus bradycardia Renal insufficiency Shingles rash Surgical History (Updated 05/30/24 @ 15:07 by Charity Michael RN) H/O heart artery stent Family History Other Unknown family medical history Social History (Updated 05/30/24 @ 15:08 by Charity Michael RN) Smoking Status: Unknown if ever smoked alcohol intake: never substance use type: denies use current occupational status: retired, disabled and other Travel in the last 8 weeks: None household members: other housing: long-term caffeine: No Have you lived/traveled outside US in past 30 days?: No Contact w/someone who lives/traveled outside US past 30 days?: No Exposure to someone with infectious disease in past 14 days?: No Do you have a fever (greater than 100.4 F or 38 C)?: No Have you tested positive for COVID-19: No Exposed to someone with COVID-19 in past 14 days?: No Do you have a sore throat?: No Do you have a cough?: No Do you have any weakness?: No Do you have any diarrhea?: No Are you experiencing any unusual bleeding?: No Do you have any muscle aches/pain?: No Do you have any abdominal pain?: No Are you experiencing loss of taste or smell?: No Other Medical History Have you received the Flu Vaccine for this season: Yes Have you received the Pneumonia Vaccine: Yes Meds Home Medications and Allergies Home Medications ?Medication ?Instructions ?Recorded ?Confirmed ?Type atorvastatin 20 mg tablet 20 mg PO HS 02/17/18 05/30/24 History sertraline 100 mg tablet 200 mg PO HS 02/17/18 05/30/24 History calcium carbonate-vitamin D3 600 1 each PO BID 09/29/19 05/30/24 History mg-125 unit tablet clopidogrel 75 mg tablet 75 mg PO DAILY 09/29/19 05/30/24 History insulin glargine 100 unit/mL (3 35 unit SQ HS 09/29/19 05/30/24 History mL) subcutaneous pen aripiprazole 30 mg tablet 30 mg PO HS 05/17/20 05/30/24 History aspirin 81 mg chewable tablet 81 mg PO DAILY 05/17/20 05/30/24 History acetaminophen 500 mg tablet 1,000 mg PO AC 06/03/20 05/30/24 History (Tylenol Extra Strength) docusate sodium 100 mg capsule 100 mg PO DAILY 06/03/20 05/30/24 History (Colace) lactulose 20 gram/30 mL oral 30 ml PO Q12HP PRN Constipation 06/03/20 05/30/24 History solution polyethylene glycol 3350 17 17 g PO DAILY 06/03/20 05/30/24 History gram/dose oral powder (Miralax) aluminum hydrox-magnesium carb 95 30 ml PO Q8HP PRN Indigestion 05/30/24 05/30/24 History mg-358 mg/15 mL oral suspension amlodipine 5 mg tablet 5 mg PO DAILY 05/30/24 05/30/24 History cefdinir 300 mg capsule 300 mg PO BID 05/30/24 05/30/24 History dapagliflozin propanediol 10 mg 10 mg PO DAILY 05/30/24 05/30/24 History tablet (Farxiga) divalproex 250 mg tablet,delayed 250 mg PO BID 05/30/24 05/30/24 History release ibuprofen 400 mg tablet 400 mg PO Q12HP PRN Breakthrough 05/30/24 05/30/24 History Pain, Mild lisinopril 5 mg tablet 5 mg PO DAILY 05/30/24 05/30/24 History melatonin 10 mg tablet 10 mg PO HS 05/30/24 05/30/24 History metformin 500 mg tablet 500 mg PO DAILY 05/30/24 05/30/24 History nystatin 100,000 unit/gram topical 1 applic topical TID 05/30/24 05/30/24 History powder ondansetron HCl 4 mg tablet 4 mg PO Q6HP PRN Nausea And 05/30/24 05/30/24 History Vomiting pantoprazole 20 mg tablet,delayed 20 mg PO HS 05/30/24 05/30/24 History release tramadol 25 mg tablet 25 mg PO Q12HP PRN Moderate Pain 05/30/24 05/30/24 History (Scale Score 5-6) trolamine salicylate 10 % topical 1 applic topical TID 05/30/24 05/30/24 History cream New Prescriptions to Start Prescriptions: Allergies Allergy/AdvReac Type Severity Reaction Status Date / Time pentazocine (PENTAZOCINE) Allergy Intermediate CRAZY Verified 10/19/23 11:47 prochlorperazine Allergy Intermediate ITCHING Verified 10/19/23 11:47 (PROCHLORPERAZINE) lithium (LITHIUM) Allergy Unknown Verified 10/19/23 11:47 Exam Data for Last 24 hours Vital signs and Labs for Last 24 Hours: Temp Pulse Resp BP Pulse Ox O2 Del Method 97.9 F 107 H 20 146/89 H 95 Room Air 05/30/24 16:00 05/30/24 16:00 05/30/24 16:00 05/30/24 16:00 05/30/24 16:00 05/30/24 17:00 Laboratory Results - last 24 hr 05/30/24 10:20: WBC 8.0 D, RBC 4.77, Hgb 13.4, Hct 43.8, MCV 91.8, MCH 28.1, MCHC 30.6 L, RDW 14.8, Plt Count 157, MPV 10.6 H, Neut % (Auto) 62.4, Lymph % (Auto) 25.0, [place] % (Auto) 8.7, Eos % (Auto) 2.7, Baso % (Auto) 0.5, Neut # (Auto) 5.0, Lymph # (Auto) 2.0, [place] # (Auto) 0.7, Eos # (Auto) 0.2, Baso # (Auto) 0.0, PT 12.1, INR 1.09, APTT 23.7, D-Dimer 0.94 H, Sodium 143, Potassium 4.8, Chloride 104, Carbon Dioxide 36 H, Anion Gap 7.8, BUN 31 H, Creatinine 1.30 H D, Estimated Creat Clear 68, Estimated GFR 40 L, Est GFR ( Amer) 49 L D , Glucose 117 H, Lactate 1.1, Calcium 10.2, Magnesium 1.8, Total Bilirubin 0.5, AST 28 D, ALT 19, Alkaline Phosphatase 103, Troponin I 0.05 H, NT-Pro-B Natriuret Pep 6890 H, Total Protein 7.0, Albumin 4.0, Globulin 3.0, Albumin/Globulin Ratio 1.3, Procalcitonin 0.090, TSH 4.11, Thyroxine (T4) 5.6, HCV Ab LUZ ELENA w/Rflx PCR Qn Negative, HIV Ag/Ab Combo Qual Negative 05/30/24 10:24: VBG pH 7.45 H, VBG pCO2 44.4, VBG pO2 54.7 H, VBG HCO3 30.2 H, VBG Total CO2 31.6 H, VBG O2 Saturation 89.4 H, VBG Base Excess 6.3 H, VBG Lactic Acid 1.8 05/30/24 13:35: Troponin I 0.05 H 05/30/24 16:39: Troponin I 0.05 H I & O for Last 24 hours: Intake & Output 05/27/24 05/28/24 05/29/24 05/30/24 23:59 23:59 23:59 23:59 Weight 103.958 kg Constitutional Constitutional: no acute distress and obese *Routine HEENT Exam Head: Present normocephalic Eye: Present EOMI and PERRL ENT: Present mucous membranes moist *Routine Neck Exam Neck: Present supple; Absent lymphadenopathy *Routine Respiratory Exam Respiratory: Present CTA bilaterally *Routine Cardiovascular Exam Cardiovascular: Present RRR *Routine Abdominal Exam Abdominal: Present soft and normoactive bowel sounds; Absent tenderness *Routine Rectal Exam Rectal:: deferred *Routine Genitalia Exam Genitalia:: deferred *Routine Extremities Exam Extremities: Absent cyanosis, clubbing or edema *Routine Skin Exam Skin: Present warm; Absent rash *Routine Neurological Exam Neurological: Present alert and oriented X3 Assessment and Plan *Assessment and plan (1) CHF exacerbation: Status: Acute Qualifiers: Heart failure type: unspecified Qualified Code(s): I50.9 - Heart failure, unspecified Category: Medical Code(s): I50.9 - Heart failure, unspecified Plan Faby Palm is a 73-year-old female with a medical history significant for remote IA with no stents, CVA, hypertension, type 2 diabetes, mood disorder who presents with progressive shortness of breath over the past few days. Patient is a resident at [facility] who mostly wheelchair-bound. She states over the past few days she has become increasingly short of breath with no cough, chest pain. She does endorse several week history of orthopnea. Workup in the ED significant for BNP 6890, troponin 0.05, D-dimer 0.94. CTA chest suggestive of pulmonary edema. On room air. Case discussed with ED provider and decision was made to admit patient for suspected new onset heart failure. #Heart failure exacerbation, new onset, unknown type #New onset A-fib #NSTEMI, likely type II ? Progressive shortness of breath, orthopnea, BNP 6890. Troponins plateaued 0.05, and EKG without acute ischemic changes. ? CTA chest suggestive of pulmonary edema. On room air. Improved peripheral edema with IV Lasix 60 mg given in the ED. ? IV Lasix 40 mg twice daily. Continue home Farxiga. Consider starting spironolactone. ? Follow-up ECHO. ? Cardiology consulted, [id number] but frequent falls. Considering anticoagulation. Started low-dose metoprolol. Hold home aspirin, continue Plavix. #History of CVA ? Plavix, statin. #Type 2 diabetes ? ACHS glucose checks, LDSSI #Mood disorder ? Continue home sertraline, valproic acid, aripiprazole. #GERD ? Continue home Protonix. DNR DVT prophylaxis: Lovenox 40 mg
--- NOTE | 2024-05-30 18:06 | PC.NURSE ---
Kyra BANSAL from [facility] called to inquire what the admitting diagnosis was. I updated her.
[2024-05-30] MEDS: ACETAMINOPHEN 325MG TAB 650 MG PO (20:35)
[2024-05-30] MEDS: ARIPiprazole 10MG TABLET 30 MG PO (20:36)
[2024-05-30] MEDS: SERTRALINE 100MG TABLET 200 MG PO (20:37)
[2024-05-30] MEDS: INSULIN GLARGINE 100 UNITS/ML 3ML FLEXPEN 20 UNIT SUBCUT (20:37)
[2024-05-30] MEDS: CALCIUM CARB + VIT D 500MG TAB 500 MG PO (20:37)
[2024-05-30] MEDS: DIVALPROEX 250MG (Delayed-Release) TABLET 250 MG PO (20:37)
[2024-05-30] MEDS: ATORVASTATIN 20MG TABLET 20 MG PO (20:37)
[2024-05-30] MEDS: MELATONIN 5MG TABLET 10 MG PO (20:37)
[2024-05-30] MEDS: PANTOPRAZOLE 40MG TABLET 40 MG PO (20:37)
[2024-05-30] MEDS: NYSTATIN TOPICAL POWDER 30GM TP (20:38)
[2024-05-30 20:45] LABS: POC Glucose,Bedside 125 (70-110)
[2024-05-30 23:50] LABS: Microscopic, Urine URINE MICROSCOPIC (MICROSCOPIC)
[2024-05-30 23:51] LABS: Blood, Urine Negative (Negative); Color,Urine YELLOW (Yellow); Glucose,Urine (UA) Negative (Negative); Ketones,Urine Negative (Negative); Leukocyte Esterase,Urine SMALL (Negative); Nitrate,Urine Negative (Negative); PH,Urine 5.5 (5.0-8.5); Protein,Urine Negative (Negative); Specific Gravity, Urine 1.015 (1.005-1.030); Urobilinogen,Urine 0.2 EU/dl (0.2)
[2024-05-30 23:54] LABS: Appearance,Urine Slightly Cloudy (Clear); Bilirubin,Urine Negative (Negative)
[2024-05-31] VITALS: BP 127/82; PULSE 83; PULSE 90; RESP 16; TEMP 36.5; O2SAT 94
[2024-05-31 00:05] LABS: Bacteria,Urine 2+ /lpf; RBC,Urine Occasional #/hpf (0-3); Squamous Epithelial Cell,Urine 20-50 #/hpf (0-5); WBC,Urine 20-50 #/hpf (0-3); Yeast,Urine 4+ /lpf
--- NOTE | 2024-05-31 03:50 | PC.NURSE ---
Patient is pleasantly alert and oriented. She was observed to have eyes closed, respirations unlabored on room air, and no apparent distress throughout the night. Heart rate has been controlled this shift; heart rhythm irregular, afib with PVCs on telemetry noted. Upon auscultation of her lungs, diminished lung sounds were heard in the bilateral bases; clear sounds were heard throughout her bilateral upper lobes. Bowel sounds active. Patient is incontinent; a purewick has remained in place this shift. Urine has been emptied and documented accordingly; urine appearance slightly cloudy and yellow. She has been requiring at least x2 assistance during transfers/ambulation. She complained of leg pain once this shift and requested to take Tylenol per MAY. Scheduled medications were also administered as appropriately per MAY. Nystatin powder was applied to her abdominal folds; no redness or excessive moisture was observed upon applying. ACHS glucose checks performed. At this time, the patient is resting in bed without any further complaints. No acute changes noted thus far. Bed alarm on. Call light within reach.
[2024-05-31 04:00] VITALS: BP 142/75; PULSE 59; PULSE 80; RESP 16; TEMP 36.7; O2SAT 96; BMI 39.0
[2024-05-31 05:42] LABS: POC Glucose,Bedside 114 (70-110)
[2024-05-31 06:35] LABS: Alanine Aminotransferase 15 U/L (12-78); Albumin Level 3.6 g/dl (3.5-5.0); Albumin/Globulin Ratio 1.3 (1.1-1.8); Alkaline Phosphatase 70 U/L (38-126); Aspartate Amino Transferase 25 U/L (14-36); Bilirubin,Total 0.6 mg/dl (0.2-1.3); Blood Urea Nitrogen 49 mg/dl (7-17); Carbon Dioxide 33 mmol/L (22.0-30.0); Chloride 103 mmol/L (98-107); Chol/HDL Ratio 3.3 (1-3.5); Cholesterol 107 mg/dl (140-200); Creatinine Clearance Estimated 57 mL/min (50-200); Estimated Glomerular Filt Rate 34 ml/min (>60); GFR (African American) 41 ML/MIN (>60); Globulin 2.8 g/dL (1.3-3.2); Glucose 101 mg/dl (74-100); HDL Cholesterol 32 mg/dl (40-60); Magnesium 2.1 mg/dl (1.6-2.3); Sodium 142 mmol/L (136-145); Total Protein,Serum 6.4 g/dl (6.3-8.2); Triglycerides 154 mg/dl (30-150); VLDL Cholesterol 31 mg/dL (0-40)
[2024-05-31 06:37] LABS: Basophils # 0.1 K/mm3 (0-0.2); Basophils % 0.8 % (0.1-2.0); Eosinophils # 0.3 K/mm3 (0.0-0.4); Eosinophils % 5.1 % (0.1-12.0); Hematocrit 40.5 % (37.0-47.0); Hemoglobin 12.5 g/dL (12.2-16.2); Lymphocytes # 2.2 K/mm3 (0.7-4.5); Lymphocytes % 34.1 % (10-50); Mean Corpuscular HGB Conc 30.9 g/dL (31.8-35.4); Mean Corpuscular Hemoglobin 27.8 pg (27.0-31.2); Mean Corpuscular Volume 90.2 fl (81-99); Mean Platelet Volume 11.5 fl (7.4-10.4); Monocytes # 0.5 K/mm3 (0.1-1.0); Monocytes % 8.3 % (1.7-9.3); Neutrophils # 3.3 K/mm3 (1.8-7.8); Neutrophils % 50.9 % (37.0-80.0); Platelet Count 132 K/mm3 (142-424); Red Blood Count 4.49 M/mm3 (4.20-5.40); Red Cell Distribution Width 14.8 % (11.5-17.5); White Blood Count 6.5 K/mm3 (4.8-10.8)
[2024-05-31 07:04] LABS: Thyroid Stimulating Hormone 3.73 uIU/mL (0.465-4.68)
[2024-05-31 08:00] VITALS: BP 137/93; PULSE 89; PULSE 90; RESP 18; TEMP 36.6; O2SAT 91
[2024-05-31] MEDS: DOCUSATE SODIUM 100 MG CAPSULE PO (09:42)
[2024-05-31] MEDS: FUROSEMIDE 40 MG TABLET PO (09:42)
[2024-05-31] MEDS: CLOPIDOGREL 75MG TAB 75 MG PO (09:42)
[2024-05-31] MEDS: DIVALPROEX 250MG (Delayed-Release) TABLET 250 MG PO (09:42)
[2024-05-31] MEDS: DAPAGLIFLOZIN PROPANEDIOL 10 MG TABLET PO (09:42)
[2024-05-31] MEDS: METOPROLOL TARTRATE 25MG TABLET 25 MG PO (09:42)
[2024-05-31] MEDS: POLYETHYLENE GLYCOL 3350 17 GM PACKET PO (09:42)
[2024-05-31] MEDS: CALCIUM CARB + VIT D 500MG TAB 500 MG PO (09:42)
[2024-05-31] MEDS: ENOXAPARIN 40MG/0.4ML SYRINGE 40 MG SUBCUT (09:43)
[2024-05-31] MEDS: NYSTATIN TOPICAL POWDER 30GM TP (09:43)
[2024-05-31] MEDS: FLUCONAZOLE 200MG TABLET 200 MG PO (09:43)
[2024-05-31 10:03] LABS: Hemoglobin A1C 6.5 % (4.0-6.0)
[2024-05-31 11:00] LABS: POC Glucose,Bedside 129 (70-110)
--- NOTE | 2024-05-31 11:40 | HMH.PTEV ---
Physical Therapy Evaluation Rehab PT IP Evaluation Start: 05/30/24 14:50 Freq: ONCE Status: Active Protocol: Document 05/31/24 09:45 ANA (Rec: 05/31/24 11:39 [email or web address] [id number]) Subjective/History History History 73-year-old female with a medical history significant for remote MS with no stents, CVA, hypertension, type 2 diabetes, mood disorder who presents with progressive shortness of breath over the past few days. Patient is a resident at [facility] who mostly wheelchair-bound. She states over the past few days she has become increasingly short of breath with no cough, chest pain. She does endorse several week history of orthopnea. Workup in the ED significant for BNP 6008 2090, troponin 0.05, D- dimer 0.94. CTA chest suggestive of pulmonary edema. On room air. Case discussed with ED provider and decision was made to admit patient for suspected new onset heart failure. She reports she lives at a [facility] home and she generally requires 2 person assist to transfer from bed to w/c. She uses w/c for all primary mobility at baseline. Subjective Subjective Pt reports she feels ok this am and agrees to mobility assessment. We can try. [facility] How much help from another person do you currently need... Turning from your back to your side A lot while in a flat bed without using bedrails? Moving from lying on back to sitting on A lot the side of a flat bed without using bedrails? Moving to and from a bed to a chair ( A lot including a wheelchair)? Standing up from a chair using your arms A lot ? (e.g., wheelchair, bedside chair) Walking in hospital room? Total Climbing 3-5 steps with a railing? Total Mobility Score 10 Mobility Level [facility] Mobility Calculator Mobility 4 Move to chair/ commode Rehab PT IP Eval Objective Appearance Patient Behavior Appropriate Patient Orientation Person,Place,Time Difficulty following instructions none Speech Pattern Clear Ambulation Patient Able to Ambulate No Balance Ability to Arise Able, uses arms to help Standing Balance Unsteady Dynamic Sitting Balance Ability Poor Dynamic Standing Balance Ability Zero Transfers Bed Transfer Ability Maximum x 1 (75% assist) Chair Transfer Ability Maximum x 2 (75% assist) Sit to Stand Bed Transfer Ability Maximum x 1 (75% assist) Sit to Stand Chair Transfer Ability Maximum x 1 (75% assist) Rehab PT IP prob,goals,plan Problems Date of Evaluation: 05/31/24 PT IP Problems Bed Mobility,Transfers Rehab Potential Rehab Potential Fair Plan PT Intervention Plan Bed Mobility,Transfers, Therapeutic Exercise PT Plan Frequency Daily Duration LOS Discharge Goals Bed Transfer Ability Maximum x 1 (75% assist) Sit to Stand Chair Transfer Ability Maximum x 1 (75% assist) Discharge Plan PT Discharge Plan Pt is currently at or very near to her baseline mobility based on her report. She is most appropriate to return to SNF once medically stable for d/c. Skilled therapy services are indicated acutely to aid pt improvement in transfers in order to maintain PLOF. Eval Complexity Eval Charge Codes 55463 - High Complexity PHYSICIAN CERTIFICATION: I certify the specified therapy services for Faby Palm are required, authorized, and reviewed every 30 days.
--- NOTE | 2024-05-31 11:49 | P.PN_ITS ---
Subjective Subjective Date: 05/31/24 Time: 11:49 Principal diagnosis: SOA Interval history: 73-year-old white female lying in bed in no acute distress. Patient states she has having difficulty breathing but appears to be in no acute distress. Heart rate is normal as well as blood pressure and oxygen saturation on room air. No appreciable wheezing or rhonchi on exam noted. Symptoms improved with repositioning in the bed. Exam Data for Last 24 hours Vital signs and Labs for Last 24 Hours: Temp Pulse Resp BP Pulse Ox O2 Del Method O2 Flow Rate 97.8 F 89 18 137/93 H 91 L Room Air 3 05/31/24 08:00 05/31/24 08:00 05/31/24 08:00 05/31/24 08:00 05/31/24 08:00 05/31/24 09:00 05/31/24 08:00 Laboratory Results - last 24 hr 05/30/24 10:20: Albumin 4.0, Globulin 3.0, Albumin/Globulin Ratio 1.3, HCV Ab LUZ ELENA w/Rflx PCR Qn Negative, HIV Ag/Ab Combo Qual Negative 05/30/24 13:35: Troponin I 0.05 H 05/30/24 16:39: Troponin I 0.05 H 05/30/24 20:26: POC Glucose 125 H 05/30/24 23:45: Urine Color Yellow, Urine Appearance Slightly cloudy, Urine pH 5.5, Ur Specific [place] 1.015, Urine Protein Negative, Urine Glucose (UA) Negative, Urine Ketones Negative, Urine Blood Negative, Urine Nitrate Negative, Urine Bilirubin Negative, Urine Urobilinogen 0.2, Ur Leukocyte Esterase Small, Urine RBC Occasional, Urine WBC 20-50, Ur Squamous Epith Cells 20-50, Urine Bacteria 2+, Urine Yeast 4+ 05/31/24 05:23: WBC 6.5, RBC 4.49, Hgb 12.5, Hct 40.5, MCV 90.2, MCH 27.8, MCHC 30.9 L, RDW 14.8, Plt Count 132 L, MPV 11.5 H, Neut % (Auto) 50.9, Lymph % (Auto) 34.1, [place] % (Auto) 8.3, Eos % (Auto) 5.1, Baso % (Auto) 0.8, Neut # (Auto) 3.3, Lymph # (Auto) 2.2, [place] # (Auto) 0.5, Eos # (Auto) 0.3, Baso # (Auto) 0.1, Sodium 142, Potassium 4.0, Chloride 103, Carbon Dioxide 33 H, Anion Gap 10.0, BUN 49 H D, Creatinine 1.50 H, Estimated Creat Clear 57, Estimated GFR 34 L, Est GFR ( Amer) 41 L, Glucose 101 H, Hemoglobin A1c 6.5 H, Calcium 10.0, Magnesium 2.1 D, Total Bilirubin 0.6, AST 25, ALT 15, Alkaline Phosphatase 70, Total Protein 6.4, Albumin 3.6, Globulin 2.8, Albumin/Globulin Ratio 1.3, Triglycerides 154 H, Cholesterol 107 L, LDL Cholesterol Direct 37.00 L, VLDL Cholesterol 31, HDL Cholesterol 32 L, Cholesterol/HDL Ratio 3.3, TSH 3.73 05/31/24 05:26: POC Glucose 114 H 05/31/24 10:53: POC Glucose 129 H I & O for Last 24 hours: Intake & Output 05/28/24 05/29/24 05/30/24 05/31/24 11:59 11:59 11:59 11:59 Intake Total 822 / 822 Output Total 450 / 450 Balance 372 / 372 Weight 242 lb 234 lb 7 oz Microbiology Reports for the Last 24 Hours: Microbiology 05/30/24 10:30 Blood Blood Culture - Preliminary NO GROWTH AFTER 24 HOURS 05/30/24 10:24 Blood Blood Culture - Preliminary NO GROWTH AFTER 24 HOURS Constitutional Constitutional: no acute distress *Routine Respiratory Exam Respiratory: Present decreased breath sounds and CTA bilaterally *Routine Cardiovascular Exam Cardiovascular: Present RRR Progress Note: A&P Assessment and plan (1) CHF exacerbation: Status: Acute Assessment and Plan Assessment and Plan for All Diagnoses:: 1. Worsening SOA with elevated BNP and evidence of fluid on chest CTA -CHF, newly diagnosed, likely diastoli -prelim echo shows preserved LVEF -IV diuretics switched to oral 2. Newly diagnosed A. fib with remote history of CVA -CHADS VASC of 6 but frequent falls by history -thyroid normal -Add low dose metoprolol for rate control -continue lisinopril -start eliquis 2.5 mg BID 3. DM -defer to Hospitalist -continue Farxiga -Hgb A1C 6.5 4. CKD stage III -monitor with diuretic use -on lisinopril -Cr 1.5, GFR 34 5. Mild CAD by cath 2020 -stop aspirin due to starting anticoagulation -continue plavix -mild flat troponin elevation at 0.05 X 3 6. Hyperlipidemia -on statin -LDL 37 OK for discharge from cardiology standpoint. Follow up in 1-2 wks. Home med recommendations: Stop aspirin Continue Plavix 75 mg daily Start Eliquis 2.5 mg twice daily Atorvastatin 20 mg daily Farxiga 10 mg daily Metoprolol succinate 25 mg daily Lasix 40 mg daily Spironolactone 25 mg daily
[2024-05-31 12:00] VITALS: BP 114/74; PULSE 70; PULSE 80; RESP 24; TEMP 36.6; O2SAT 90
--- NOTE | 2024-05-31 12:18 | EXP.DC.SUM ---
General Admission date:: 05/30/24 HPI HPI HPI: Faby Palm is a 73-year-old female with a medical history significant for remote NM with no stents, CVA, hypertension, type 2 diabetes, mood disorder who presents with progressive shortness of breath over the past few days. Patient is a resident at [facility] who mostly wheelchair-bound. She states over the past few days she has become increasingly short of breath with no cough, chest pain. She does endorse several week history of orthopnea. Workup in the ED significant for BNP 6008 2090, troponin 0.05, D-dimer 0.94. CTA chest suggestive of pulmonary edema. On room air. Case discussed with ED provider and decision was made to admit patient for suspected new onset heart failure. Hospital Course Hospital Course Hospital Course: Faby Palm is a 73-year-old female with a medical history significant for remote NM with no stents, CVA, hypertension, type 2 diabetes, mood disorder who presents with progressive shortness of breath over the past few days. Patient is a resident at [facility] who mostly wheelchair-bound. She states over the past few days she has become increasingly short of breath with no cough, chest pain. She does endorse several week history of orthopnea. Workup in the ED significant for BNP 6890, troponin 0.05, D-dimer 0.94. CTA chest suggestive of pulmonary edema. On room air. Case discussed with ED provider and decision was made to admit patient for suspected new onset heart failure. #HFpEF exacerbation, new onset #A-fib, new onset #NSTEMI, type II ? Presented with progressive shortness of breath on room air, orthopnea, BNP 6890. Troponins plateaued 0.05, and EKG without acute ischemic changes. ? CTA chest suggestive of pulmonary edema. On room air. ? Clinically improved with IV Lasix diuresis. ? Cardiology consulted, transitioned to oral Lasix 40 mg, spironolactone 25 mg, continue Farxiga 10 mg. ? Pending official ECHO report, but preliminary findings do not suggest reduced/systolic heart failure. ? Per A-fib, [id number] 6 but high fall risk. Cardiology started Eliquis 2.5 mg twice daily, metoprolol succinate 25 mg. Discontinue aspirin to avoid triple therapy. ? Will follow-up with cardiology within 2 weeks. #History of CVA ? Plavix, statin. #Type 2 diabetes ? Hemoglobin A1c 6.5%. ? Continue home regimen. #Mood disorder ? Continue home sertraline, valproic acid, aripiprazole. #GERD ? Continue home Protonix. Total time spent on discharge: 32 minutes on chart review, counseling, documentation, and direct care with patient. Exam Data for Last 24 hours Vital signs and Labs for Last 24 Hours: Temp Pulse Resp BP Pulse Ox O2 Del Method O2 Flow Rate 97.8 F 89 18 137/93 H 91 L Room Air 3 05/31/24 08:00 05/31/24 08:00 05/31/24 08:00 05/31/24 08:00 05/31/24 08:00 05/31/24 09:00 05/31/24 08:00 Laboratory Results - last 24 hr 05/30/24 10:20: Albumin 4.0, Globulin 3.0, Albumin/Globulin Ratio 1.3, HCV Ab LUZ ELENA w/Rflx PCR Qn Negative, HIV Ag/Ab Combo Qual Negative 05/30/24 13:35: Troponin I 0.05 H 05/30/24 16:39: Troponin I 0.05 H 05/30/24 20:26: POC Glucose 125 H 05/30/24 23:45: Urine Color Yellow, Urine Appearance Slightly cloudy, Urine pH 5.5, Ur Specific [place] 1.015, Urine Protein Negative, Urine Glucose (UA) Negative, Urine Ketones Negative, Urine Blood Negative, Urine Nitrate Negative, Urine Bilirubin Negative, Urine Urobilinogen 0.2, Ur Leukocyte Esterase Small, Urine RBC Occasional, Urine WBC 20-50, Ur Squamous Epith Cells 20-50, Urine Bacteria 2+, Urine Yeast 4+ 05/31/24 05:23: WBC 6.5, RBC 4.49, Hgb 12.5, Hct 40.5, MCV 90.2, MCH 27.8, MCHC 30.9 L, RDW 14.8, Plt Count 132 L, MPV 11.5 H, Neut % (Auto) 50.9, Lymph % (Auto) 34.1, [place] % (Auto) 8.3, Eos % (Auto) 5.1, Baso % (Auto) 0.8, Neut # (Auto) 3.3, Lymph # (Auto) 2.2, [place] # (Auto) 0.5, Eos # (Auto) 0.3, Baso # (Auto) 0.1, Sodium 142, Potassium 4.0, Chloride 103, Carbon Dioxide 33 H, Anion Gap 10.0, BUN 49 H D, Creatinine 1.50 H, Estimated Creat Clear 57, Estimated GFR 34 L, Est GFR ( Amer) 41 L, Glucose 101 H, Hemoglobin A1c 6.5 H, Calcium 10.0, Magnesium 2.1 D, Total Bilirubin 0.6, AST 25, ALT 15, Alkaline Phosphatase 70, Total Protein 6.4, Albumin 3.6, Globulin 2.8, Albumin/Globulin Ratio 1.3, Triglycerides 154 H, Cholesterol 107 L, LDL Cholesterol Direct 37.00 L, VLDL Cholesterol 31, HDL Cholesterol 32 L, Cholesterol/HDL Ratio 3.3, TSH 3.73 05/31/24 05:26: POC Glucose 114 H 05/31/24 10:53: POC Glucose 129 H I & O for Last 24 hours: Intake & Output 05/28/24 05/29/24 05/30/24 05/31/24 23:59 23:59 23:59 23:59 Intake Total 240 / 462 582 / 582 Output Total 400 / 450 50 / 50 Balance -160 / 12 532 / 532 Weight 103.958 kg 106.339 kg Microbiology Reports for the Last 24 Hours: Microbiology 05/30/24 10:30 Blood Blood Culture - Preliminary NO GROWTH AFTER 24 HOURS 05/30/24 10:24 Blood Blood Culture - Preliminary NO GROWTH AFTER 24 HOURS Constitutional Constitutional: no acute distress and obese *Routine HEENT Exam Head: Present normocephalic Eye: Present EOMI and PERRL ENT: Present mucous membranes moist *Routine Neck Exam Neck: Present supple; Absent lymphadenopathy *Routine Respiratory Exam Respiratory: Present decreased breath sounds and CTA bilaterally *Routine Cardiovascular Exam Cardiovascular: Present RRR *Routine Abdominal Exam Abdominal: Present soft and normoactive bowel sounds; Absent tenderness *Routine Extremities Exam Extremities: Absent cyanosis, clubbing or edema *Routine Skin Exam Skin: Present warm; Absent rash *Routine Neurological Exam Neurological: Present alert and oriented X3 Results Data Completed and Pending Labs on day of discharge: Labs from last 24 hours 05/31/24 05/31/24 05/31/24 10:53 05:26 05:23 WBC 6.5 RBC 4.49 Hgb 12.5 Hct 40.5 MCV 90.2 MCH 27.8 MCHC 30.9 L RDW 14.8 Plt Count 132 L MPV 11.5 H Neut % (Auto) 50.9 Lymph % (Auto) 34.1 [place] % (Auto) 8.3 Eos % (Auto) 5.1 Baso % (Auto) 0.8 Neut # (Auto) 3.3 Lymph # (Auto) 2.2 [place] # (Auto) 0.5 Eos # (Auto) 0.3 Baso # (Auto) 0.1 Sodium 142 Potassium 4.0 Chloride 103 Carbon Dioxide 33 H Anion Gap 10.0 BUN 49 H D Creatinine 1.50 H Estimated Creat Clear 57 Estimated GFR 34 L Est GFR ( Amer) 41 L Glucose 101 H POC Glucose 129 H 114 H Hemoglobin A1c 6.5 H Calcium 10.0 Magnesium 2.1 D Total Bilirubin 0.6 AST 25 ALT 15 Alkaline Phosphatase 70 Troponin I Total Protein 6.4 Albumin 3.6 Globulin 2.8 Albumin/Globulin Ratio 1.3 Triglycerides 154 H Cholesterol 107 L LDL Cholesterol Direct 37.00 L VLDL Cholesterol 31 HDL Cholesterol 32 L Cholesterol/HDL Ratio 3.3 TSH 3.73 Urine Color Urine Appearance Urine pH Ur Specific [place] Urine Protein Urine Glucose (UA) Urine Ketones Urine Blood Urine Nitrate Urine Bilirubin Urine Urobilinogen Ur Leukocyte Esterase Urine RBC Urine WBC Ur Squamous Epith Cells Urine Bacteria Urine Yeast HCV Ab LUZ ELENA w/Rflx PCR Qn HIV Ag/Ab Combo Qual 05/30/24 05/30/24 05/30/24 23:45 20:26 16:39 WBC RBC Hgb Hct MCV MCH MCHC RDW Plt Count MPV Neut % (Auto) Lymph % (Auto) [place] % (Auto) Eos % (Auto) Baso % (Auto) Neut # (Auto) Lymph # (Auto) [place] # (Auto) Eos # (Auto) Baso # (Auto) Sodium Potassium Chloride Carbon Dioxide Anion Gap BUN Creatinine Estimated Creat Clear Estimated GFR Est GFR ( Amer) Glucose POC Glucose 125 H Hemoglobin A1c Calcium Magnesium Total Bilirubin AST ALT Alkaline Phosphatase Troponin I 0.05 H Total Protein Albumin Globulin Albumin/Globulin Ratio Triglycerides Cholesterol LDL Cholesterol Direct VLDL Cholesterol HDL Cholesterol Cholesterol/HDL Ratio TSH Urine Color Yellow Urine Appearance Slightly cloudy Urine pH 5.5 Ur Specific [place] 1.015 Urine Protein Negative Urine Glucose (UA) Negative Urine Ketones Negative Urine Blood Negative Urine Nitrate Negative Urine Bilirubin Negative Urine Urobilinogen 0.2 Ur Leukocyte Esterase Small Urine RBC Occasional Urine WBC 20-50 Ur Squamous Epith Cells 20-50 Urine Bacteria 2+ Urine Yeast 4+ HCV Ab LUZ ELENA w/Rflx PCR Qn HIV Ag/Ab Combo Qual 05/30/24 05/30/24 13:35 10:20 WBC RBC Hgb Hct MCV MCH MCHC RDW Plt Count MPV Neut % (Auto) Lymph % (Auto) [place] % (Auto) Eos % (Auto) Baso % (Auto) Neut # (Auto) Lymph # (Auto) [place] # (Auto) Eos # (Auto) Baso # (Auto) Sodium Potassium Chloride Carbon Dioxide Anion Gap BUN Creatinine Estimated Creat Clear Estimated GFR Est GFR ( Amer) Glucose POC Glucose Hemoglobin A1c Calcium Magnesium Total Bilirubin AST ALT Alkaline Phosphatase Troponin I 0.05 H Total Protein Albumin 4.0 Globulin 3.0 Albumin/Globulin Ratio 1.3 Triglycerides Cholesterol LDL Cholesterol Direct VLDL Cholesterol HDL Cholesterol Cholesterol/HDL Ratio TSH Urine Color Urine Appearance Urine pH Ur Specific [place] Urine Protein Urine Glucose (UA) Urine Ketones Urine Blood Urine Nitrate Urine Bilirubin Urine Urobilinogen Ur Leukocyte Esterase Urine RBC Urine WBC Ur Squamous Epith Cells Urine Bacteria Urine Yeast HCV Ab LUZ ELENA w/Rflx PCR Qn Negative HIV Ag/Ab Combo Qual Negative Preliminary micro results at discharge 05/30/24 10:30 Blood Culture - Preliminary Blood NO GROWTH AFTER 24 HOURS 05/30/24 10:24 Blood Culture - Preliminary Blood NO GROWTH AFTER 24 HOURS DS: Diagnosis Discharge Diagnosis (1) CHF exacerbation: Status: Acute Code(s): I50.9 - Heart failure, unspecified Qualifiers: Heart failure type: unspecified Qualified Code(s): I50.9 - Heart failure, unspecified Meds Home Medications and Allergies Home Medications ?Medication ?Instructions ?Recorded ?Confirmed ?Type atorvastatin 20 mg tablet 20 mg PO HS 02/17/18 05/30/24 History sertraline 100 mg tablet 200 mg PO HS 02/17/18 05/30/24 History calcium carbonate-vitamin D3 600 1 each PO BID 09/29/19 05/30/24 History mg-125 unit tablet clopidogrel 75 mg tablet 75 mg PO DAILY 09/29/19 05/30/24 History insulin glargine 100 unit/mL (3 35 unit SQ HS 09/29/19 05/30/24 History mL) subcutaneous pen aripiprazole 30 mg tablet 30 mg PO HS 05/17/20 05/30/24 History acetaminophen 500 mg tablet 1,000 mg PO AC 06/03/20 05/30/24 History (Tylenol Extra Strength) docusate sodium 100 mg capsule 100 mg PO DAILY 06/03/20 05/30/24 History (Colace) lactulose 20 gram/30 mL oral 30 ml PO Q12HP PRN Constipation 06/03/20 05/30/24 History solution polyethylene glycol 3350 17 17 g PO DAILY 06/03/20 05/30/24 History gram/dose oral powder (Miralax) aluminum hydrox-magnesium carb 95 30 ml PO Q8HP PRN Indigestion 05/30/24 05/30/24 History mg-358 mg/15 mL oral suspension dapagliflozin propanediol 10 mg 10 mg PO DAILY 05/30/24 05/30/24 History tablet (Farxiga) divalproex 250 mg tablet,delayed 250 mg PO BID 05/30/24 05/30/24 History release ibuprofen 400 mg tablet 400 mg PO Q12HP PRN Breakthrough 05/30/24 05/30/24 History Pain, Mild melatonin 10 mg tablet 10 mg PO HS 05/30/24 05/30/24 History metformin 500 mg tablet 500 mg PO DAILY 05/30/24 05/30/24 History nystatin 100,000 unit/gram topical 1 applic topical TID 05/30/24 05/30/24 History powder ondansetron HCl 4 mg tablet 4 mg PO Q6HP PRN Nausea And 05/30/24 05/30/24 History Vomiting pantoprazole 20 mg tablet,delayed 20 mg PO HS 05/30/24 05/30/24 History release tramadol 25 mg tablet 25 mg PO Q12HP PRN Moderate Pain 05/30/24 05/30/24 History (Scale Score 5-6) trolamine salicylate 10 % topical 1 applic topical TID 05/30/24 05/30/24 History cream apixaban 5 mg tablet (Eliquis) 2.5 mg (1/2 x 5 mg) PO BID 30 days 05/31/24 Rx #30 tabs furosemide 40 mg tablet 40 mg PO DAILY 30 days #30 tabs 05/31/24 Rx metoprolol succinate 25 mg 25 mg PO DAILY #30 tabs 05/31/24 Rx tablet,extended release 24 hr (Toprol XL) spironolactone 25 mg tablet 25 mg PO DAILY 30 days #30 tabs 05/31/24 Rx New Prescriptions to Start Prescriptions: apixaban [Eliquis] Shane Barillas furosemide Shane Barillas metoprolol succinate [Toprol XL] Shane Barillas spironolactone Shane Barillas Allergies Allergy/AdvReac Type Severity Reaction Status Date / Time pentazocine (PENTAZOCINE) Allergy Intermediate CRAZY Verified 10/19/23 11:47 prochlorperazine Allergy Intermediate ITCHING Verified 10/19/23 11:47 (PROCHLORPERAZINE) lithium (LITHIUM) Allergy Unknown Verified 10/19/23 11:47 Discharge Plan Disposition Patient Disposition: Xfer Intermediate Care Fac Condition: Fair Discharge Order Discharge Orders: Discharge Order (Routine); Ordered 05/31/24 Ordered By: Shane Barillas Follow up Plan Follow up with: Luis Manuel Franklin PA [Physician Senior Publications Specialist] - 06/09/24 (Please call office for follow up appointment. ) Prescriptions/Medication Reconciliation: New furosemide 40 mg Tablet 40 mg PO DAILY 30 Days Qty: 30 0RF spironolactone 25 mg Tablet 25 mg PO DAILY 30 Days Qty: 30 0RF Eliquis 5 mg Tablet 2.5 mg PO BID 30 Days Qty: 30 0RF metoprolol succinate [Toprol XL] 25 mg tablet extended release 24 hr 25 mg PO DAILY Qty: 30 0RF Continued atorvastatin 20 mg tablet 20 mg PO HS sertraline 100 mg tablet 200 mg PO HS docusate sodium [Colace] 100 mg capsule 100 mg PO DAILY acetaminophen [Tylenol Extra Strength] 500 mg tablet 1,000 mg PO AC lactulose 20 gram/30 mL solution 30 ml PO Q12HP PRN (Reason: Constipation) polyethylene glycol 3350 [Miralax] 17 gram/dose powder 17 g PO DAILY clopidogrel 75 MG tablet 75 mg PO DAILY calcium carbonate-vitamin D3 1 EACH tablet 1 each PO BID insulin glargine 100 UNIT/ML insulin pen 35 unit SQ HS aripiprazole 30 MG tablet 30 mg PO HS aluminum hydrox-magnesium carb 95-358 mg/15 mL Suspension 30 ml PO Q8HP PRN (Reason: Indigestion) divalproex 250 mg tablet,delayed release (DR/EC) 250 mg PO BID pantoprazole 20 mg tablet,delayed release (DR/EC) 20 mg PO HS ibuprofen 400 mg tablet 400 mg PO Q12HP PRN (Reason: Breakthrough Pain, Mild) nystatin 100,000 unit/gram Powder 1 applic TOPICAL TID Rx Instructions: APPLY TOPICALLY TO ABDOMINAL FOLDS ONCE EVERY SHIFT. trolamine salicylate 10 % Cream 1 applic TOPICAL TID Rx Instructions: APPLY TOPICALLY TO KNEES AND SHOULDERS ONCE EVERY SHIFT. melatonin 10 mg Tablet 10 mg PO HS dapagliflozin propanediol [Farxiga] 10 mg tablet 10 mg PO DAILY tramadol 25 mg Tablet 25 mg PO Q12HP PRN (Reason: Moderate Pain (Scale Score 5-6)) ondansetron HCl 4 mg Tablet 4 mg PO Q6HP PRN (Reason: Nausea And Vomiting) metformin 500 mg tablet 500 mg PO DAILY Discontinued aspirin 81 MG tablet,chewable 81 mg PO DAILY cefdinir 300 mg Capsule 300 mg PO BID Rx Instructions: FOR 7 DAYS, 05/28/24 TO 06/04/24. amlodipine 5 mg tablet 5 mg PO DAILY lisinopril 5 mg tablet 5 mg PO DAILY Problem Reconciliation Problems Reviewed?: Yes Patient Discharge Instructions Patient Instructions: Heart Failure, DI for Heart Failure, DI for Shortness of Breath, How to Manage Shortness of Breath Print Language: Georgian Providers Primary Care Provider: Rainer Asher Admit Provider: Shane Barillas Attending Provider: Shane Barillas
--- NOTE | 2024-05-31 13:04 | XR_ITS ---
FINAL REPORT CLINICAL HISTORY: Shortness of breath COMPARISON: 05/30/2024 FINDINGS: A portable view of the chest was obtained. The heart is stable in size. Left basilar atelectasis or scar is unchanged. There is slight worsening of the right basilar opacity. There may be small pleural effusions. No pneumothorax is evident. IMPRESSION: Slight worsening right basilar opacity with possible small pleural effusions. Reviewed, Interpreted and Dictated by Cierra Correa MD Transcribed by Sridevi Miller Authenticated and [facility]
[2024-05-31] MEDS: FUROSEMIDE 40MG/4ML VIAL 40 MG IV (13:52)
[2024-05-31] MEDS: APIXABAN 5MG TABLET 2.5 MG PO (13:53)
[2024-05-31 16:00] VITALS: PULSE 80
== END 2024-05-31 17:36 ==
LOC: ER 13:27 → 2ND 14:37
PROVIDERS: Admitting Provider Student in an Organized Health Care Education/Training Program; Emergency Provider Emergency Medicine; PCP Internal Medicine Adolescent Medicine; Visit Provider Student in an Organized Health Care Education/Training Program
DX: I13.0 Hypertensive heart and chronic kidney disease with heart failure and stage 1 through stage 4 chronic kidney disease, or unspecified chronic kidney disease (principal); I21.4 Non-ST elevation (NSTEMI) myocardial infarction; I50.21 Acute systolic (congestive) heart failure; I24.9 Acute ischemic heart disease, unspecified; I48.91 Unspecified atrial fibrillation; R29.6 Repeated falls; N18.30 Chronic kidney disease, stage 3 unspecified; E11.22 Type 2 diabetes mellitus with diabetic chronic kidney disease; D63.1 Anemia in chronic kidney disease; Z86.73 Personal history of transient ischemic attack (TIA), and cerebral infarction without residual deficits; I25.2 Old myocardial infarction; F32.A Depression, unspecified; F41.9 Anxiety disorder, unspecified; N28.9 Disorder of kidney and ureter, unspecified; R06.01 Orthopnea; E78.5 Hyperlipidemia, unspecified; Z95.5 Presence of coronary angioplasty implant and graft; F39 Unspecified mood [affective] disorder; R00.0 Tachycardia, unspecified; Z91.81 History of falling; D69.6 Thrombocytopenia, unspecified; R79.89 Other specified abnormal findings of blood chemistry; E66.9 Obesity, unspecified; K21.9 Gastro-esophageal reflux disease without esophagitis; Z87.828 Personal history of other (healed) physical injury and trauma; Z88.6 Allergy status to analgesic agent; Z88.8 Allergy status to other drugs, medicaments and biological substances; Z79.02 Long term (current) use of antithrombotics/antiplatelets; Z79.4 Long term (current) use of insulin; Z79.2 Long term (current) use of antibiotics; Z79.891 Long term (current) use of opiate analgesic; Z79.899 Other long term (current) drug therapy; Z79.84 Long term (current) use of oral hypoglycemic drugs; Z79.82 Long term (current) use of aspirin; Z99.3 Dependence on wheelchair; Z74.1 Need for assistance with personal care; Z99.81 Dependence on supplemental oxygen; Z68.39 Body mass index [BMI] 39.0-39.9, adult
CPT/HCPCS: 36415; 71045; 71275; 80053; 80061; 81001; 82803; 82962; 83036; 83605; 83735; 83880; 84145; 84436; 84443; 84484; 85025; 85378; 85610; 85730; 86803; 87040; 87086; 87389; 93005; 93306; 97163; 99291; G0378; J0131; J1650; J1885; J1940; Q9967

== ENCOUNTER 2024-06-12 14:18 | Outpatient (POV) | payer MEDICARE, MEDICAID, SELFPAY ==
[2024-06-12 15:06] VITALS: BP 122/78; PULSE 66; RESP 14; O2SAT 95; BMI 34.9
--- NOTE | 2024-06-12 15:08 | EXP.PAIN.SOA ---
[facility] Disclaimer: The information contained in this section may have been updated after the patient was seen, as this information can be updated by other users. Medical History (Updated 06/12/24 @ 15:12 by Carmen Boyd APRN) Left knee pain Atrial fibrillation with RVR (HFpEF) heart failure with preserved ejection fraction Suicidal ideation Bilateral knee pain Dyspepsia Nonspecific chest pain Contusion of knee, left Abnormal cardiovascular stress test Atypical angina Dyspnea Anemia Gait instability Fracture of proximal phalanx of digit of hand Obesity UTI (urinary tract infection) Diastolic dysfunction Thrombocytopenia Closed rib fracture Skin Abnormalities Chest pain Heart attack Left sided cerebral hemisphere cerebrovascular accident (CVA) CVA (cerebral vascular accident) Depression Facial laceration Multiple bruises Fall from bed Contusion of right hip Puncture wound of forehead Traumatic hematoma of forehead Suicidal ideation Pre-operative cardiovascular examination Contusion of left hip Knee contusion Skin tear of forearm without complication Multiple falls Concussion without loss of consciousness Scalp laceration Fracture of rib of right side Contusion of rib on left side Malaise and fatigue Dehydration Elevated left ventricular end-diastolic pressure (LVEDP) Unstable angina pectoris Atypical chest pain Bronchitis Acute kidney injury Sinus bradycardia Renal insufficiency Shingles rash Surgical History H/O heart artery stent Family History Other Unknown family medical history Social History Smoking Status: Unknown if ever smoked alcohol intake: never substance use type: denies use current occupational status: retired, disabled and other Travel in the last 8 weeks: None household members: other housing: skilled nursing caffeine: No Have you lived/traveled outside US in past 30 days?: No Contact w/someone who lives/traveled outside US past 30 days?: No Exposure to someone with infectious disease in past 14 days?: No Do you have a fever (greater than 100.4 F or 38 C)?: No Have you tested positive for COVID-19: No Exposed to someone with COVID-19 in past 14 days?: No Do you have a sore throat?: No Do you have a cough?: No Do you have any weakness?: No Do you have any diarrhea?: No Are you experiencing any unusual bleeding?: No Do you have any muscle aches/pain?: No Do you have any abdominal pain?: No Are you experiencing loss of taste or smell?: No PM Subjective & Objective Subjective Subjective:: Patient is a pleasant 73-year-old female who presents today for worsening left knee pain. Today she rates her pain a 10 out of 10. Patient does state that she had a fall a couple of weeks ago where she just stumbled landing on her right knee. Patient states that it did aggravate her overall symptoms. Patient does not believe that she did any significant injury however states the pain is interfering with her ability perform activities of daily living such as cooking and cleaning. Patient did previously have a right infrapatellar nerve block back in February. Patient had a left knee replacements and has been doing infrapatellar nerve blocks from time to time. Patient did get 50% initially from her last infrapatellar nerve block. Patient is interested in additional injection therapy as well as possible knee brace. Patient just feels like it is unstable and does have a lot of movement to the joint. Her Kristopher has been reviewed and is appropriate. Review of Systems: General: No recent weight changes, no fever, no sleep disturbances Respiratory: No cough, no shortness of air, no recurring pulmonary infections Cardiovascular/peripheral vascular: No chest pain, no palpitations, no edema, no shortness of breath Gastrointestinal: No new onset incontinence, normal bowel movements reported Genitourinary: No new onset incontinence Musculoskeletal: Left knee pain Psychiatric: [Normal mood/affect] Neurological: [Denies weakness in extremities], [denies balance issues] Pain at rest (0-10 scale): 10 Objective Objective:: Physical Exam: General: Alert and oriented x3, no acute distress, pleasant and cooperative Lungs: Respirations even and unlabored, symmetrical chest expansion Eyes: PERRL Musculoskeletal: Flexion and extension of left knee somewhat guarded secondary to pain, [antalgic gait noted] Neurological: Speech clear, no gross sensory deficit Has patient had previous pain injection?: No Conservative treatment options previously tried: Home exercise plan Length of treatment: Longer than 12 weeks Meds Home Medications and Allergies Home Medications ?Medication ?Instructions ?Recorded ?Confirmed ?Type atorvastatin 20 mg tablet 20 mg PO HS 02/17/18 06/12/24 History sertraline 100 mg tablet 200 mg PO HS 02/17/18 06/12/24 History calcium carbonate-vitamin D3 600 1 each PO BID 09/29/19 06/12/24 History mg-125 unit tablet clopidogrel 75 mg tablet 75 mg PO DAILY 09/29/19 06/12/24 History insulin glargine 100 unit/mL (3 35 unit SQ HS 09/29/19 06/12/24 History mL) subcutaneous pen aripiprazole 30 mg tablet 30 mg PO HS 05/17/20 06/12/24 History acetaminophen 500 mg tablet 1,000 mg PO AC 06/03/20 06/12/24 History (Tylenol Extra Strength) docusate sodium 100 mg capsule 100 mg PO DAILY 06/03/20 06/12/24 History (Colace) lactulose 20 gram/30 mL oral 30 ml PO Q12HP PRN Constipation 06/03/20 06/12/24 History solution polyethylene glycol 3350 17 17 g PO DAILY 06/03/20 06/12/24 History gram/dose oral powder (Miralax) aluminum hydrox-magnesium carb 95 30 ml PO Q8HP PRN Indigestion 05/30/24 06/12/24 History mg-358 mg/15 mL oral suspension dapagliflozin propanediol 10 mg 10 mg PO DAILY 05/30/24 06/12/24 History tablet (Farxiga) divalproex 250 mg tablet,delayed 250 mg PO BID 05/30/24 06/12/24 History release metformin 500 mg tablet 500 mg PO DAILY 05/30/24 06/12/24 History ondansetron HCl 4 mg tablet 4 mg PO Q6HP PRN Nausea And 05/30/24 06/12/24 History Vomiting pantoprazole 20 mg tablet,delayed 20 mg PO HS 05/30/24 06/12/24 History release tramadol 25 mg tablet 25 mg PO Q12HP PRN Moderate Pain 05/30/24 06/12/24 History (Scale Score 5-6) trolamine salicylate 10 % topical 1 applic topical TID 05/30/24 06/12/24 History cream apixaban 5 mg tablet (Eliquis) 2.5 mg (1/2 x 5 mg) PO BID 30 days 05/31/24 06/12/24 Rx #30 tabs furosemide 40 mg tablet 40 mg PO DAILY 30 days #30 tabs 05/31/24 06/12/24 Rx spironolactone 25 mg tablet 25 mg PO DAILY 30 days #30 tabs 05/31/24 06/12/24 Rx metoprolol succinate 50 mg 50 mg PO DAILY #90 tabs 06/06/24 06/12/24 Rx tablet,extended release 24 hr New Prescriptions to Start Prescriptions: Allergies Allergy/AdvReac Type Severity Reaction Status Date / Time pentazocine (PENTAZOCINE) Allergy Intermediate CRAZY Verified 06/06/24 13:46 prochlorperazine Allergy Intermediate ITCHING Verified 06/06/24 13:46 (PROCHLORPERAZINE) lithium (LITHIUM) Allergy Unknown Verified 06/06/24 13:46 gabapentin AdvReac Verified 06/06/24 13:46 Assessment and Plan *Assessment and plan (1) Left knee pain: Status: Acute Category: Medical Code(s): M25.562 - Pain in left knee Plan Patient does have chronic left knee pain that has been going on for longer than 6 months. We have been doing left infrapatellar nerve blocks due to the history of a left knee replacement. I did discuss with the patient that she may benefit from repeat left knee injection. Risk and benefits were discussed with the patient and she would like to proceed forward with this plan of care. Patient has tried and failed conservative therapy including previous physical therapy with continued at home stretching exercise for longer than 12 weeks. Patient will also be ordered a knee brace to help add stability and support around this joint. Patient will be sent down with a written order for this device to take to physical therapy. Patient will be scheduled for a left infrapatellar nerve block. Patient has been instructed to contact the clinic with any concerns before the next appointment. Dr. Smith has reviewed this note and agrees with this plan of care. This note was dictated using voice recognition software and make contain errors or omissions. All injections are used with Lidocaine, Bupivacaine and Depo Medrol. Occasionally urine drug screen is needed to verify patient's compliance with our office pain contract. This is ordered based off specific treatments related to chronic pain with the potential to abuse certain medications.
== END 2024-06-12 23:59 | disposition home or self-care (01) ==
LOC: SC.PAIN 14:21
PROVIDERS: PCP Internal Medicine Adolescent Medicine; Visit Provider Nurse Practitioner Family
DX: M25.562 Pain in left knee (principal); Z73.89 Other problems related to life management difficulty; Z96.652 Presence of left artificial knee joint; Z79.01 Long term (current) use of anticoagulants
CPT/HCPCS: 99212; G0463

== ENCOUNTER 2024-06-12 15:07 | Outpatient (RCR) | payer MEDICARE, MEDICAID, SELFPAY | END 2024-06-12 23:59 | disposition home or self-care (01) | LOC: PT 15:07 | PROVIDERS: Visit Provider Nurse Practitioner Family | DX: M25.562 Pain in left knee (principal) ==

== ENCOUNTER 2024-07-06 12:03 | Outpatient (CLI) | payer MEDICARE, MEDICAID, SELFPAY | END 2024-07-06 23:59 | disposition home or self-care (01) | LOC: RT 12:04 | PROVIDERS: PCP Internal Medicine Adolescent Medicine; Visit Provider Physician Assistant | DX: I49.5 Sick sinus syndrome (principal) | CPT/HCPCS: 93270 ==

== ENCOUNTER 2024-07-18 07:12 | Outpatient (CLI) | payer MEDICARE, MEDICAID, SELFPAY ==
--- NOTE | 2024-07-18 | CA_ITS ---
APPROVED REPORT Exam: Pharmacologic Technologist: Stacy Guo Ht: 5 ft 8 in Wt: 230 lbs BSA: 2.17 m2 HR: 60 bpm BP: 137/75 mmHg Stress Test Details Test: Lexiscan HR Resting HR: 60 bpm Max Heart Rate (APMHR): 147.982027 bpm Max HR Achieved: 64 bpm Target HR (85% APMHR): 124.960319 bpm % of APMHR: 43.54 Recovery HR: 61 bpm BP Resting BP: 137.0/75.0 mmHg Max BP: 161.0/80.0 mmHg Recovery BP: 134.0/62.0 mmHg ECG Resting ECG: Sinus bradycardia Stress ECG Conclusion Symptoms: Dyspnea Arrhythmias/Ectopy: PVC ST-T Changes: Less than [address] depression. Conclusion: EKG unremarkable due to Lexscan infusion. Electronically signed by : Liz Field MD 07/18/2024 12:00:27
--- NOTE | 2024-07-18 08:00 | NM_ITS ---
APPROVED REPORT Exam: Nuclear Stress Test Indication: SOB, HTN, DM, High cholesterol Patient Location: Outpatient Stress Tech: Stacy Guo NM Tech:Malka Mock, ARRT, RT (R)(N) Ht: 5 ft 8 in Wt: 230 lbs Bra Size: D HR: 65 bpm BP: 137/75 mmHg BSA: 2.17 m2 TID: 1.18 BMI: 34.9 History: SOB, HTN, DM, High cholesterol Procedure: Patient received 0.4 mg of intravenous Lexiscan, resting heart rate 65 bpm, resting blood pressure 137/75 mmHg, with Lexiscan maximum heart rate achieved was 69 bpm which is % of the maximum predicted heart rate and blood pressure was 161/80 mmHg. With Lexiscan, patient denied any complaint of chest pain. Cardiac Stress and Resting SPECT Images: Cardiac Stress and Resting SPECT images were obtained using technetium 99m Myoview 32.1 mCi stress and 10.72 mCi at rest. The patient is unable to lie on her abdomen. Therefore, prone stress imaging could not be performed. This may affect the diagnostic interpretation of the study findings. Resting and stress imaging in supine positions demonstrate no evidence of fixed or reversible perfusion defects. Gated imaging demonstrates normal global and regional LV systolic function. LVEF is calculated at 58%. Conclusion: No evidence of fixed or reversible perfusion defects. Gated imaging demonstrates normal global and regional LV systolic function. LVEF is calculated at 58%. Electronically signed by : Liz Field MD 07/18/2024 12:00:13
[2024-07-18] MEDS: SODIUM CHLORIDE 0.9% 10ML SYR (RAD ONLY) 10 ML IV ×2 (09:11)
[2024-07-18] MEDS: ISOTOPE MYOVIEW (PER STUDY) 1 DOSE IV (09:11)
[2024-07-18] MEDS: REGADENOSON 0.4MG/5ML SYRINGE 0.4 MG IV (09:11)
== END 2024-07-18 23:59 | disposition home or self-care (01) ==
PROVIDERS: PCP Internal Medicine Adolescent Medicine; Visit Provider Physician Assistant
DX: I50.33 Acute on chronic diastolic (congestive) heart failure (principal); I49.5 Sick sinus syndrome; I48.91 Unspecified atrial fibrillation; I10 Essential (primary) hypertension; E78.2 Mixed hyperlipidemia; E66.9 Obesity, unspecified; R06.02 Shortness of breath
CPT/HCPCS: 78452; 93017; 93018; A9502; J2785

== ENCOUNTER 2024-07-23 09:23 | Emergency (ER) | payer MEDICARE, MEDICAID, SELFPAY ==
[2024-07-23] VITALS (20 sets, daily range): BP systolic 105–146; BP diastolic 57–74; PULSE 49–123; RESP 10–27; TEMP 36.8–36.9; O2SAT 95–98; BMI 36.5
--- NOTE | 2024-07-23 09:25 | ECG_ITS ---
APPROVED REPORT Exam: Resting ECG HR:53 bpm ECG Measurements Heart Rate 53 AXES [place] 176 P 63 QRSd 70 QRS 0 QT 420 T 76 QTc 403 Conclusion SINUS BRADYCARDIA LOW QRS VOLTAGE IN PRECORDIAL LEADS [QRS DEFLECTION < 1.0 mV IN CHEST LEADS] PATTERN CONSISTENT WITH PULMONARY DISEASE MARKED ST ELEVATION, CONSIDER INFERIOR INJURY [MARKED ST ELEVATION W/O NORMALLY INFLECTED T-WAVE IN II/aVF] ACUTE MA UNCONFIRMED REPORT Electronically signed by : Mayo Cortes, 07/23/2024 16:04:58
--- NOTE | 2024-07-23 09:43 | XR_ITS ---
PROCEDURE INFORMATION: Exam: XR Chest Exam date and time: 07/23/2024 10:18 AM Age: 74 years old Clinical indication: Dyspnea TECHNIQUE: Imaging protocol: Radiologic exam of the chest. Views: 1 view. COMPARISON: CR XR CHEST PORTABLE 05/31/2024 1:41 PM FINDINGS: Lungs: Patchy airspace opacity at the left base. Likely pneumonia. Pleural spaces: Unremarkable. No pleural effusion. No pneumothorax. Heart/Mediastinum: Unremarkable. No cardiomegaly. Bones/joints: Unremarkable. IMPRESSION: Patchy airspace opacity at the left base. Likely pneumonia.
--- NOTE | 2024-07-23 10:12 | ED_ITS ---
Discharge Plan Disposition Patient Disposition: Home, Self-Care Prescriptions Prescriptions: No Action atorvastatin 20 mg tablet 20 mg PO HS sertraline 100 mg tablet 200 mg PO HS docusate sodium [Colace] 100 mg capsule 100 mg PO DAILY acetaminophen [Tylenol Extra Strength] 500 mg tablet 1,000 mg PO AC polyethylene glycol 3350 [Miralax] 17 gram/dose powder 17 g PO DAILY metoprolol succinate 50 mg tablet extended release 24 hr 37.5 mg PO DAILY Qty: 90 3RF clopidogrel 75 MG tablet 75 mg PO DAILY calcium carbonate-vitamin D3 1 EACH tablet 1 each PO BID insulin glargine 100 UNIT/ML insulin pen 35 unit SQ HS aripiprazole 30 MG tablet 30 mg PO HS divalproex 250 mg tablet,delayed release (DR/EC) 250 mg PO BID pantoprazole 20 mg tablet,delayed release (DR/EC) 20 mg PO HS dapagliflozin propanediol [Farxiga] 10 mg tablet 10 mg PO DAILY metformin 500 mg tablet 500 mg PO DAILY furosemide 40 mg Tablet 40 mg PO DAILY 30 Days Qty: 30 0RF spironolactone 25 mg Tablet 25 mg PO DAILY 30 Days Qty: 30 0RF Eliquis 5 mg Tablet 2.5 mg PO BID 30 Days Qty: 30 0RF Referrals Follow up/Referrals: Rainer Asher MD [Primary Care Provider] - See instructions Activity Restrictions/Add. Instructions Additional Instructions/Restrictions: No evidence of acute cardiopulmonary emergency please follow-up with your market relationship manager or primary care doctor as needed. Clinical Impressions Clinical Impression: Atypical chest pain Print Language Print Language: [place] Discharge ED Provider: Vahid Cortes HPI General Chief Complaint: Chest Pain Stated Complaint: chest pain Time Seen by Provider: 07/23/24 09:33 Mode of Arrival: EMS Source of Information: Patient and EMS Description of Symptoms (Recalled from ER Triage Doc. by RN): pt reports a chest heaviness starting about 2am. had a stress test last week that she reports was good. History of Present Illness HPI narrative: Patient is a 74-year-old female presents today with substernal chest pain that started around 2 AM. Denies any exertional symptoms dyspnea diaphoresis etc. Has a known history of anxiety and stress associated with health-related conditions. Patient states symptoms have been constant since last night. Related Data Home Medications ?Medication ?Instructions ?Recorded ?Confirmed atorvastatin 20 mg tablet 20 mg PO HS 02/17/18 07/20/24 sertraline 100 mg tablet 200 mg PO HS 02/17/18 07/20/24 calcium carbonate-vitamin D3 600 1 each PO BID 09/29/19 07/20/24 mg-125 unit tablet clopidogrel 75 mg tablet 75 mg PO DAILY 09/29/19 07/20/24 insulin glargine 100 unit/mL (3 35 unit SQ HS 09/29/19 07/20/24 mL) subcutaneous pen aripiprazole 30 mg tablet 30 mg PO HS 05/17/20 07/20/24 acetaminophen 500 mg tablet 1,000 mg PO AC 06/03/20 07/20/24 (Tylenol Extra Strength) docusate sodium 100 mg capsule 100 mg PO DAILY 06/03/20 07/20/24 (Colace) polyethylene glycol 3350 17 17 g PO DAILY 06/03/20 07/20/24 gram/dose oral powder (Miralax) dapagliflozin propanediol 10 mg 10 mg PO DAILY 05/30/24 07/20/24 tablet (Farxiga) divalproex 250 mg tablet,delayed 250 mg PO BID 05/30/24 07/20/24 release metformin 500 mg tablet 500 mg PO DAILY 05/30/24 07/20/24 pantoprazole 20 mg tablet,delayed 20 mg PO HS 05/30/24 07/20/24 release Previous Rx's ?Medication ?Instructions ?Recorded apixaban 5 mg tablet (Eliquis) 2.5 mg (1/2 x 5 mg) PO BID 30 days 05/31/24 #30 tabs furosemide 40 mg tablet 40 mg PO DAILY 30 days #30 tabs 05/31/24 spironolactone 25 mg tablet 25 mg PO DAILY 30 days #30 tabs 05/31/24 metoprolol succinate 50 mg 37.5 mg (0.75 x 50 mg) PO DAILY 07/06/24 tablet,extended release 24 hr #90 tabs Allergies Allergy/AdvReac Type Severity Reaction Status Date / Time pentazocine (PENTAZOCINE) Allergy Intermediate CRAZY Verified 07/20/24 10:49 prochlorperazine Allergy Intermediate ITCHING Verified 07/20/24 10:49 (PROCHLORPERAZINE) lithium (LITHIUM) Allergy Unknown Verified 07/20/24 10:49 gabapentin AdvReac Verified 07/20/24 10:49 [facility] Disclaimer: The information contained in this section may have been updated after the patient was seen, as this information can be updated by other users. Medical History Sick sinus syndrome Tachy-niraj syndrome Left knee pain Atrial fibrillation with RVR (HFpEF) heart failure with preserved ejection fraction Suicidal ideation Bilateral knee pain Dyspepsia Nonspecific chest pain Contusion of knee, left Abnormal cardiovascular stress test Atypical angina Dyspnea Anemia Gait instability Fracture of proximal phalanx of digit of hand Obesity UTI (urinary tract infection) Diastolic dysfunction Thrombocytopenia Closed rib fracture Skin Abnormalities Chest pain Heart attack Left sided cerebral hemisphere cerebrovascular accident (CVA) CVA (cerebral vascular accident) Depression Facial laceration Multiple bruises Fall from bed Contusion of right hip Puncture wound of forehead Traumatic hematoma of forehead Suicidal ideation Pre-operative cardiovascular examination Contusion of left hip Knee contusion Skin tear of forearm without complication Multiple falls Concussion without loss of consciousness Scalp laceration Fracture of rib of right side Contusion of rib on left side Malaise and fatigue Dehydration Elevated left ventricular end-diastolic pressure (LVEDP) Unstable angina pectoris Atypical chest pain Bronchitis Acute kidney injury Sinus bradycardia Renal insufficiency Shingles rash Surgical History H/O heart artery stent Family History Other Unknown family medical history Social History Smoking Status: Never smoker alcohol intake: never substance use type: denies use current occupational status: other Travel in the last 8 weeks?: None household members: other housing: [facility] caffeine: No Have you lived/traveled outside US in past 30 days?: No Contact w/someone who lives/traveled outside US past 30 days?: No Exposure to someone with infectious disease in past 14 days?: No Do you have a fever (greater than 100.4 F or 38 C)?: No Have you tested positive for COVID-19?: No Exposed to someone with COVID-19 in past 14 days?: No Do you have a sore throat?: No Do you have a cough?: No Do you have any weakness?: No Do you have any diarrhea?: No Are you experiencing any unusual bleeding?: No Do you have any muscle aches/pain?: No Do you have any abdominal pain?: No Are you experiencing loss of taste or smell?: No Other Medical History Have you received the Flu Vaccine for this season: Yes Have you received the Pneumonia Vaccine: Yes ROS Obtained: Yes All systems reviewed & no additional complaints except as documented Physical Exam General General appearance: alert Respiratory Respiratory exam: Present normal lung sounds bilaterally Cardiovascular Cardiovascular exam: Present regular rate Neurological Exam Neurological exam: Present alert HEART Score HEART Score HEART Score assessment performed?: Yes History (anamnesis): Slightly suspicious ECG: Normal Age: >65 years Risk factors: 3 or more risk factors Troponin: </= normal limit HEART Score: 4 Critical Care Critical Care Time Critical Care Time: No Medical Decision Making Kristopher Inquiry Pt receiving controlled substance: No Vital Signs Vital Signs: 07/23/24 09:28 07/23/24 09:31 07/23/24 09:41 Temperature 98.4 F Temperature Source Oral Pulse Rate 49 L Pulse Rate [Right] 78 Respiratory Rate 27 H 12 20 Blood Pressure 146/57 H 109/66 L Blood Pressure [Right Arm] 109/66 L Blood Pressure Mean [Right Arm] 80 02 Sat by Pulse Oximetry 97 97 95 Oxygen Delivery Method Room Air Room Air Room Air 07/23/24 10:01 07/23/24 11:01 07/23/24 11:31 Temperature Temperature Source Pulse Rate Pulse Rate [Right] Respiratory Rate 21 12 23 Blood Pressure 120/63 125/68 105/67 L Blood Pressure [Right Arm] Blood Pressure Mean [Right Arm] 02 Sat by Pulse Oximetry 97 97 97 Oxygen Delivery Method Room Air Room Air Room Air 07/23/24 12:03 Temperature Temperature Source Pulse Rate 123 H Pulse Rate [Right] Respiratory Rate 18 Blood Pressure 128/72 Blood Pressure [Right Arm] Blood Pressure Mean [Right Arm] 02 Sat by Pulse Oximetry 97 Oxygen Delivery Method Room Air Lab Data Lab results reviewed: Yes I reviewed the patient's lab results. Labs: Lab Results 07/23/24 11:00: WBC 6.2, RBC 4.68, Hgb 12.9, Hct 41.9, MCV 89.5, MCH 27.6, MCHC 30.8 L, RDW 14.8, Plt Count 120 L, MPV 10.9 H, Neut % (Auto) 62.6, Lymph % (Auto) 26.1, [place] % (Auto) 7.6, Eos % (Auto) 2.6, Baso % (Auto) 0.5, Neut # (Auto) 3.9, Lymph # (Auto) 1.6, [place] # (Auto) 0.5, Eos # (Auto) 0.2, Baso # (Auto) 0.0, D-Dimer 0.40, Sodium 140, Potassium 3.8, Chloride 104, Carbon Dioxide 35 H, Anion Gap 4.8 L, BUN 23 H, Creatinine 1.10 H, Estimated Creat Clear 78, Estimated GFR 49 L, Est GFR ( Amer) 59, Glucose 135 H, Calcium 9.5, Total Bilirubin 0.6, AST 23, ALT 15, Alkaline Phosphatase 157 H, Troponin I 0.02, NT-Pro-B Natriuret Pep 403 H, Total Protein 6.5, Albumin 3.7, Globulin 2.8, Albumin/Globulin Ratio 1.3 07/23/24 11:00 07/23/24 11:00 Response Orders (Tests/Meds): ORDERS Category Date Time Status CXR --portable [XR chest portable] Stat Exams 07/23/24 09:43 Completed BNP [NT Pro Brain Natriuretic Pep.] Stat Lab 07/23/24 11:00 Completed CBC w/Auto Diff [Complete Blood Count Auto Diff] Stat Lab 07/23/24 11:00 Completed CMP [Comprehensive Metabolic Panel] Stat Lab 07/23/24 11:00 Completed D-Dimer Stat Lab 07/23/24 11:00 Completed Trop I [Troponin I] Stat Lab 07/23/24 11:00 Completed Troponin I Q3H Lab 07/23/24 12:45 Ordered Troponin I Q3H Lab 07/23/24 15:45 Ordered ECG Data Tracing #1: Attestation: I reviewed this ECG and interpreted as documented below: ECG Narrative: Ventricular rate of 53 sinus bradycardia no acute ischemic changes noted there is low voltage QRS left axis deviation no evidence of STEMI MDM Narrative Medical Decision Narrative: 74-year-old with above history and physical EKG is unremarkable from an acute standpoint. Will get a single troponin to rule out acute coronary syndrome given the duration of symptoms. Cannot use pulmonary embolism rule out criteria will obtain a D-dimer and utilize a cutoff of 1.04 CT PE with years criteria. Overall patient looks very well. Chest x-ray performed to person interpreted shows no acute cardiopulmonary emergency Labs unremarkable patient remains very stable no indication for serial troponin testing or further emergent evaluation or inpatient management. Patient discharged in stable condition with outpatient follow-up discussed.
--- NOTE | 2024-07-23 11:02 | ECG_ITS ---
APPROVED REPORT Exam: Resting ECG HR:46 bpm ECG Measurements Heart Rate 46 AXES WA 162 P 47 QRSd 82 QRS -30 QT 440 T 56 QTc 398 Conclusion SINUS BRADYCARDIA LOW QRS VOLTAGE IN PRECORDIAL LEADS [QRS DEFLECTION < 1.0 mV IN CHEST LEADS] INFERIOR MYOCARDIAL INFARCTION , PROBABLY OLD [40+ ms Q WAVE AND/OR ST/T ABNORMALITY IN II/aVF] ANTEROSEPTAL MYOCARDIAL INFARCTION , PROBABLY OLD [40+ ms Q WAVE IN V1-V4] ABNORMAL ECG UNCONFIRMED REPORT Electronically signed by : Mayo Cortes, 07/23/2024 16:04:15
[2024-07-23 11:09] LABS: Basophils % 0.5 % (0.1-2.0); Eosinophils # 0.2 Kmm3 (0.0-0.4); Eosinophils % 2.6 % (0.1-12.0); Hematocrit 41.9 % (37.0-47.0); Hemoglobin 12.9 g/dL (12.2-16.2); Immature Granulocytes # 0.04 10^3uL; Immature Granulocytes % 0.6 %; Lymphocytes # 1.6 K/mm3 (0.7-4.5); Lymphocytes % 26.1 % (10-50); Mean Corpuscular HGB Conc 30.8 g/dL (31.8-35.4); Mean Corpuscular Hemoglobin 27.6 pg (27.0-31.2); Mean Corpuscular Volume 89.5 fl (81-99); Mean Platelet Volume 10.9 fl (7.4-10.4); Monocytes # 0.5 K/mm3 (0.1-1.0); Monocytes % 7.6 % (1.7-9.3); Neutrophils # 3.9 K/mm3 (1.8-7.8); Neutrophils % 62.6 % (37.0-80.0); Nucleated Red Blood Cells # 0 10^3/uL; Nucleated Red Blood Cells % 0 %; Platelet Count 120 K/mm3 (142-424); Red Blood Count 4.68 M/mm3 (4.20-5.40); Red Cell Distribution Width 14.8 % (11.5-17.5); Red Cell Distribution Width-SD 47.1 fL; White Blood Count 6.2 K/mm3 (4.8-10.8)
[2024-07-23 11:15] LABS: Alanine Aminotransferase 15 U/L (12-78); Albumin Level 3.7 g/dl (3.5-5.0); Albumin/Globulin Ratio 1.3 (1.1-1.8); Alkaline Phosphatase 157 U/L (38-126); Anion Gap 4.8 mEq/L (5-15); Aspartate Amino Transferase 23 U/L (14-36); Bilirubin,Total 0.6 mg/dl (0.2-1.3); Blood Urea Nitrogen 23 mg/dl (7-17); Calcium 9.5 mg/dl (8.4-10.2); Carbon Dioxide 35 mmol/L (22.0-30.0); Chloride 104 mmol/L (98-107); Creatinine Clearance Estimated 78 mL/min (50-200); Estimated Glomerular Filt Rate 49 ml/min (>60); GFR (African American) 59 ML/MIN (>60); Globulin 2.8 g/dL (1.3-3.2); Glucose 135 mg/dl (74-100); Potassium 3.8 mmoL/L (3.5-5.1); Sodium 140 mmol/L (136-145); Total Protein,Serum 6.5 g/dl (6.3-8.2)
[2024-07-23 11:27] LABS: NT Pro Brain Natriuretic Pep. 403 pg/mL (0-125); Troponin I 0.02 ng/ml (0.00-0.034)
--- NOTE | 2024-07-23 12:09 | PC.NURSE ---
pt voiced she was hungry. food tray was ordered for pt
--- NOTE | 2024-07-23 12:18 | PC.NURSE ---
spoke with EMS regarding pt transfer
== END 2024-07-23 15:03 | disposition home or self-care (01) ==
PROVIDERS: Emergency Provider Student in an Organized Health Care Education/Training Program; PCP Internal Medicine Adolescent Medicine
DX: R07.89 Other chest pain (principal); R00.1 Bradycardia, unspecified; F41.9 Anxiety disorder, unspecified; E78.5 Hyperlipidemia, unspecified; I10 Essential (primary) hypertension
CPT/HCPCS: 71045; 80053; 83880; 84484; 85025; 85378; 93005; 99285

== ENCOUNTER 2025-01-30 18:07 | Emergency (ER) | payer MEDICARE, MEDICAID, SELFPAY ==
[2025-01-30 18:19] VITALS: PULSE 60; RESP 15; O2SAT 98
[2025-01-30 18:20] VITALS: BP 116/53; PULSE 57; RESP 15; TEMP 36.8; O2SAT 100; BMI 35.9
--- NOTE | 2025-01-30 18:20 | XR_ITS ---
PROCEDURE INFORMATION: Exam: XR Chest Exam date and time: 01/30/2025 6:28 PM Age: 74 years old Clinical indication: Shortness of breath; Additional info: Work up TECHNIQUE: Imaging protocol: Radiologic exam of the chest. Views: 1 view. COMPARISON: CT ANGIO CHEST PE PROTOCOL 05/30/2024 12:27 PM FINDINGS: Lungs: Hypoinflation. No consolidation. Pleural spaces: Unremarkable. No pleural effusion. No pneumothorax. Heart/Mediastinum: Unremarkable. Moderate stable cardiomegaly. Bones/joints: Unremarkable. IMPRESSION: No acute findings.
--- NOTE | 2025-01-30 18:21 | CT_ITS ---
PROCEDURE INFORMATION: Exam: CT Head Without Contrast Exam date and time: 01/30/2025 6:27 PM Age: 74 years old Clinical indication: Altered mental status/memory loss; Additional info: Encephalopathy TECHNIQUE: Imaging protocol: Computed tomography of the head without contrast. Radiation optimization: All CT scans at this facility use at least one of these dose optimization techniques: automated exposure control; mA and/or kV adjustment per patient size (includes targeted exams where dose is matched to clinical indication); or iterative reconstruction. COMPARISON: CT HEAD/BRAIN WO CON 12/06/2020 9:21 PM FINDINGS: Brain: There is diffuse prominence of the cerebral sulci, cisterns, and ventricles consistent with atrophy. No intra or extra-axial fluid collections are noted. No mass or mass effect is seen. Periventricular white matter hypoattenuation is seen consistent with chronic small vessel disease. Cerebral ventricles: No ventriculomegaly. Paranasal sinuses: Visualized sinuses are unremarkable. No fluid levels. Mastoid air cells: Visualized mastoid air cells are well aerated. Bones: Unremarkable. No acute fracture. Soft tissues: Unremarkable. IMPRESSION: No acute process noted.
--- NOTE | 2025-01-30 18:23 | ED_ITS ---
<Statement entered by Luis Manuel Matute MD - 01/31/25 10:54> I was consulted by the JORGE, and we discussed the complexity of the problems being addressed. I approve the treatment and management plan for this patient's care in the emergency department, thus performing a substantive portion of the medical decision making. Luis Manuel Matute MD Discharge Plan Disposition Patient Disposition: Home, Self-Care Condition: Fair Prescriptions Prescriptions: New cephalexin 500 mg capsule 1,000 mg PO BID 7 Days Qty: 28 0RF No Action atorvastatin 20 mg tablet 20 mg PO HS sertraline 100 mg tablet 200 mg PO HS docusate sodium [Colace] 100 mg capsule 100 mg PO DAILY acetaminophen [Tylenol Extra Strength] 500 mg tablet 1,000 mg PO AC polyethylene glycol 3350 [Miralax] 17 gram/dose powder 17 g PO DAILY melatonin 3 mg tablet 3 mg PO HS Gemtesa 75 mg tablet 75 mg PO DAILY metoprolol succinate 50 mg tablet extended release 24 hr 25 mg PO DAILY Qty: 90 3RF clopidogrel 75 MG tablet 75 mg PO DAILY calcium carbonate-vitamin D3 1 EACH tablet 1 each PO BID insulin glargine 100 UNIT/ML insulin pen 35 unit SQ HS aripiprazole 30 MG tablet 30 mg PO HS divalproex 250 mg tablet,delayed release (DR/EC) 250 mg PO BID pantoprazole 20 mg tablet,delayed release (DR/EC) 20 mg PO HS dapagliflozin propanediol [Farxiga] 10 mg tablet 10 mg PO DAILY furosemide 40 mg Tablet 40 mg PO DAILY 30 Days Qty: 30 0RF spironolactone 25 mg Tablet 25 mg PO DAILY 30 Days Qty: 30 0RF Eliquis 5 mg Tablet 2.5 mg PO BID 30 Days Qty: 30 0RF metformin 500 mg tablet 500 mg PO ONCE Referrals Follow up/Referrals: Rainer Asher MD [Primary Care Provider, Internal Medicine] - See instructions Clinical Impressions Clinical Impression: Urinary tract infection, Suicide ideation Instructions Patient Instructions: Acute Cystitis, DI for Suicidal Ideation in Adults Print Language Print Language: Ukrainian Discharge ED Provider: Luis Manuel Matute General Adult HPI General Chief complaint: Psychiatric Symptoms Stated complaint: SI- with plan Time Seen by Provider: 01/30/25 18:09 History of Present Illness HPI narrative: 74-year-old female presents to the ED via EMS for suicidal ideations. She tells me that she does not have suicidal ideations at this time. She said she did earlier today. She said she had a plan to drink Drano or slit her wrists. She said she is depressed because she has not seen her son in a year. He lives at [place] and he has not been to see her since last Haseeb. She says he travels for work and 2 hours it is too far for him to come see her. Patient is alert and oriented x 3. She is stable and afebrile today. She does have pain in both knees. She says this is chronic for her. Related Data Home Medications ?Medication ?Instructions ?Recorded ?Confirmed atorvastatin 20 mg tablet 20 mg PO HS 02/17/18 5 sertraline 100 mg tablet 200 mg PO HS 02/17/18 calcium carbonate-vitamin D3 600 1 each PO BID 0 01/16/25 mg-125 unit tablet clopidogrel 75 mg tablet 75 mg PO DAILY 09/29/1901/06 insulin glargine 100 unit/mL (3 35 unit SQ HS 09/29/19 01/16/25 mL) subcutaneous pen aripiprazole 30 mg tablet 30 mg PO HS 05/17/20 5 acetaminophen 500 mg tablet 1,000 mg PO AC 06/03/20 (Tylenol Extra Strength) docusate sodium 100 mg capsule 100 mg PO DAILY 1 01/16/25 (Colace) polyethylene glycol 3350 17 17 g PO DAILY 06/03/2001/30 gram/dose oral powder (Miralax) dapagliflozin propanediol 10 mg 10 mg PO DAILY 5 01/16/25 tablet (Farxiga) divalproex 250 mg tablet,delayed 250 mg PO BID 5 01/16/25 release pantoprazole 20 mg tablet,delayed 20 mg PO HS 05/30/24 01/16/25 release melatonin 3 mg tablet 3 mg PO HS 01/16/25 01/16/25 metformin 500 mg tablet 500 mg PO ONCE 01/16/2501/06 vibegron 75 mg tablet (Gemtesa) 75 mg PO DAILY 5 11/11/25 Previous Rx's ?Medication ?Instructions ?Recorded apixaban 5 mg tablet (Eliquis) 2.5 mg (1/2 x 5 mg) PO BID 30 days 05/31/24 #30 tabs furosemide 40 mg tablet 40 mg PO DAILY 30 days #30 t abs 05/31/24 spironolactone 25 mg tablet 25 mg PO DAILY 30 days #30 tabs 05/31/24 metoprolol succinate 50 mg 25 mg (1/2 x 50 mg) PO JEF Y #90 01/17/25 tablet,extended release 24 hr tabs cephalexin 500 mg capsule 1,000 mg (2 x 500 mg) PO BID 7 01/30/25 days #28 caps Allergies Allergy/AdvReac Type Severity Reaction Status Date / Time pentazocine (PENTAZOCINE) Allergy Intermediate CRAZY Verified 01/16/25 11:21 prochlorperazine Allergy Intermediate ITCHING Verified 01/16/25 11:21 (PROCHLORPERAZINE) lithium (LITHIUM) Allergy Unknown Unknown Verified 01/16/25 11:21 allergy reaction gabapentin AdvReac Unknown Verified 01/16/25 11:21 allergy reaction PFSH PFS Disclaimer: The information contained in this section may have been updated after the patient was seen, as this information can be updated by other users. Medical History Sick sinus syndrome Tachy-niraj syndrome Left knee pain Atrial fibrillation with RVR (HFpEF) heart failure with preserved ejection fraction Suicidal ideation Bilateral knee pain Dyspepsia Nonspecific chest pain Contusion of knee, left Abnormal cardiovascular stress test Atypical angina Dyspnea Anemia Gait instability Fracture of proximal phalanx of digit of hand Obesity UTI (urinary tract infection) Diastolic dysfunction Thrombocytopenia Closed rib fracture Skin Abnormalities Chest pain Heart attack Left sided cerebral hemisphere cerebrovascular accident (CVA) CVA (cerebral vascular accident) Depression Facial laceration Multiple bruises Fall from bed Contusion of right hip Puncture wound of forehead Traumatic hematoma of forehead Suicidal ideation Pre-operative cardiovascular examination Contusion of left hip Knee contusion Skin tear of forearm without complication Multiple falls Concussion without loss of consciousness Scalp laceration Fracture of rib of right side Contusion of rib on left side Malaise and fatigue Dehydration Elevated left ventricular end-diastolic pressure (LVEDP) Unstable angina pectoris Atypical chest pain Bronchitis Acute kidney injury Sinus bradycardia Renal insufficiency Shingles rash Surgical History H/O heart artery stent Family History Other Unknown family medical history Social History Smoking Status: Current every day smoker alcohol intake: never substance use type: denies use current occupational status: other Travel in the last 8 weeks?: None household members: other housing: halfway caffeine: No Have you lived/traveled outside [place] in past 30 days?: No Contact w/someone who lives/traveled outside [place] past 30 days?: No Exposure to someone with infectious disease in past 14 days?: No Do you have a fever (greater than 100.4 F or 38 C)?: No Have you tested positive for COVID-19?: No Exposed to someone with COVID-19 in past 14 days?: No Do you have a sore throat?: No Do you have a cough?: No Do you have any weakness?: No Do you have any diarrhea?: No Are you experiencing any unusual bleeding?: No Do you have any muscle aches/pain?: No Do you have any abdominal pain?: No Are you experiencing loss of taste or smell?: No Other Medical History Have you received the Flu Vaccine for this season: Yes Have you received the Pneumonia Vaccine: Yes ROS Obtained: Yes Systems reviewed as appropriate & no additional complaints except as documented Constitutional Constitutional: Reports as per HPI Physical Exam General General appearance: alert and in no apparent distress Head Head exam: normocephalic Eye Eye exam: Present PERRL and EOMI ENT ENT exam: Present normal oropharynx and mucous membranes moist Neck Neck exam: Present full ROM and trachea midline Respiratory Respiratory exam: Present normal lung sounds bilaterally Cardiovascular Cardiovascular exam: Present regular rate, normal rhythm, normal heart sounds, +S1 and +S2 Abdominal Exam Abdominal exam: Present soft and normal bowel sounds Extremities Exam Extremities exam: Present full ROM and normal capillary refill Neurological Exam Neurological exam: Present alert and oriented X3 Skin Skin exam: Present warm and dry Medical Decision Making Medical Records Screening: Per USPSTF and CDC recommendations, given the prevalence of disease in our region, it is our hospital?s policy to screen for HIV and viral Hepatitis for all patients aged 18 and over and those with ongoing risk factors. Kristopher Inquiry Pt receiving controlled substance: No Kristopher was queried for this patient: No Vital Signs: 01/30/25 18:19 01/30/25 18:20 01/30/25 18:45 Temperature 98.3 F Temperature Source Oral Pulse Rate 60 54 L Pulse Rate [Right Radial] 57 L Respiratory Rate 15 15 15 Blood Pressure Blood Pressure [Right Arm] 116/53 L Blood Pressure Mean [Right Arm] 74 Blood Pressure Source Blood Pressure Source [Right Arm] Automatic Cuff Blood Pressure Position Blood Pressure Position [Right Arm] Supine 02 Sat by Pulse Oximetry 98 100 98 Oxygen Delivery Method Room Air 01/30/25 21:08 Temperature 98.9 F Temperature Source Oral Pulse Rate 52 L Pulse Rate [Right Radial] Respiratory Rate 16 Blood Pressure 145/67 H Blood Pressure [Right Arm] Blood Pressure Mean [Right Arm] Blood Pressure Source Automatic Cuff Blood Pressure Source [Right Arm] Blood Pressure Position Sitting Blood Pressure Position [Right Arm] 02 Sat by Pulse Oximetry Oxygen Delivery Method Room Air Lab Data Lab Results 01/30/25 18:43: WBC 6.9, RBC 5.04, Hgb 14.7, Hct 44.9, MCV 89.1, MCH 29.2, MCHC 32.7, RDW 14.6, Plt Count 124 L, MPV 11.0 H, Neut % (Auto) 58.1, Lymph % (Auto) 30.4, [place] % (Auto) 7.2, Eos % (Auto) 3.3, Baso % (Auto) 0.4, Neut # (Auto) 4.0, Lymph # (Auto) 2.1, [place] # (Auto) 0.5, Eos # (Auto) 0.2, Baso # (Auto) 0.0, Sodium 143, Potassium 3.5, Chloride 94 L, Carbon Dioxide 39 H, Anion Gap 13.5, BUN 15, Creatinine 1.10 H, Estimated Creat Clear 70, Estimated GFR 49 L, Est GFR ( Amer) 59, Glucose 139 H, Calcium 9.6, Total Bilirubin 0.4, AST 24, ALT 14, Alkaline Phosphatase 120, Total Protein 6.6, Albumin 3.7, Globulin 2.9, Albumin/Globulin Ratio 1.3, TSH 6.33 H, Salicylates < 1.0 L, Acetaminophen < 10 L, Plasma/Serum Alcohol < 10 01/30/25 19:00: Ammonia < 9 L 01/30/25 19:04: Urine Color Yellow, Urine Appearance Slightly cloudy, Urine pH 6.0, Ur Specific [place] <= 1.005, Urine Protein Negative, Urine Glucose (UA) 3+, Urine Ketones Negative, Urine Blood 1+ A, Urine Nitrate Positive A, Urine Bilirubin Negative, Urine Urobilinogen 0.2, Ur Leukocyte Esterase 3+ A, Urine RBC 10-20, Urine WBC Tntc, Ur Squamous Epith Cells 5-10, Urine Bacteria 4+, Urine Yeast 2+ 01/30/25 19:07: Urine Opiates Screen Negative, Urine Methadone Screen Negative, Ur Barbituates Screen Negative, Ur Phencyclidine Scrn Negative, Ur Amphetamines Screen Negative, U Benzodiazepines Scrn Negative, Urine Cocaine Screen Negative, U Marijuana (THC) Screen Negative 01/30/25 18:43 01/30/25 18:43 Orders (Tests/Meds): ED MEDICATIONS Discontinued Medications Generic Name Dose Route Start Last Admin Trade Name Vegaq PRN Reason Stop Dose Admin Cephalexin HCl 1,000 mg 01/30/25 19:22 01/30/25 19:58 Cephalexin 500mg Capsule PO 01/30/25 19:23 1,000 mg ONCE ONE Administration ORDERS Category Date Time Status CT head/brain wo con Stat Cat Scan 01/30/25 18:21 Completed XR chest portable Stat Exams 01/30/25 18:20 Completed Acetaminophen Stat Lab 01/30/25 18:43 Completed Ammonia Stat Lab 01/30/25 19:00 Completed Complete Blood Count Auto Diff Stat Lab 01/30/25 18:43 Completed Comprehensive Metabolic Panel Stat Lab 01/30/25 18:43 Completed Drug Screen,Urine Stat Lab 01/30/25 19:07 Completed Ethyl Alcohol Stat Lab 01/30/25 18:43 Completed Madill (Eskalith(R)) Stat Lab 01/30/25 19:00 Received Salicylate Stat Lab 01/30/25 18:43 Completed Thyroid Stimulating Hormone Stat Lab 01/30/25 18:43 Completed Urinalysis and Microscopic Stat Lab 01/30/25 19:04 Completed Urine Culture Stat Micro 01/30/25 19:04 Received Medical Decision Narrative: patient is a 74-year-old female presenting to the emergency department for evaluation of suicidal ideation with a plan. Patient is hemodynamically stable and nontoxic-appearing upon arrival, afebrile. Differential diagnosis includes suicidal ideation. Workup will be conducted with hematologic labs, specific imaging. Initial inventions include crystalloid bolus, analgesics. Patient had urine that showed positive leukocytes and white blood cells. This will be treated with antibiotics. Patient with normal white blood cell count of 6.9. BUN and creatinine were 15 and 1.1. Patient's TSH was 6.33 this needs to be managed by PCP. Otherwise negative drug screening. Patient denies any suicidal ideations at this time. She did decline since she has been here. Patient safe for discharge home. Critical Care Critical Care Time Critical Care Time: No
[2025-01-30 18:45] VITALS: PULSE 54; RESP 15; O2SAT 98
--- OUTSIDE RECORDS SUMMARY | 2025-01-30 18:45 | XMS_ITS | Clinical Summary ---
Author Organization [facility] Address [address] [place] [address] Phone Care Team Providers Care Assembler Wire Mesh Gate Name Role Phone Unavailable Primary Care Provider Unavailabl e Allergies Active Allergy Reactions Criticality Noted Date Comments Prochlorperazine Edisylate 5 Sausal 08/29/2014 Pentazocine Hcl 06/22/2016 Prochlorperazine Maleate 06/22/2016 [...] Tablet Sustained Release 12 hrIndications:Stab le angina TAKE ONE TABLET BY MOUTH EVERY 12 HOURS 60 Tab 10/07/19 18 Active glipiZIDE (GLUCOTROL) 10 mg Oral TabletIndications: NSTEMI (non-ST elevated myocardial infarction) ([facility]),ASHD (arteriosclerotic heart disease),Essential hypertension,Chron ic diastolic CHF (congestive heart failure) ([facility]),Hyperlipidem ia, unspecified hyperlipidemia type Take 10 mg by mouth 2 times daily. 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 And Takes 100 mg at night Active QUEtiapine (SEROQUEL) 50 mg Oral Tablet Take 100 mg by mouth nightly. Active gabapentin (NEURONTIN) 100 mg Oral Capsule Take 200 mg by mouth 4 times daily. Active albuterol (PROVENTIL HFA; VENTOLIN HFA) 90 mcg/actuation Inhl HFA Aerosol InhalerIndications :Chronic diastolic CHF (congestive heart failure) ([facility]),Essential hypertension,ASHD (arteriosclerotic heart disease),S/P ablation of atrial [...] from the original. Has been sent to shelter care facility at [facility] - don't know if returning to [facility]. 11/2018 Call [facility] [employer] message with Kyra for lab results . Problem Noted Date Diagnosed Date [facility] resident 11/25/2023 MDD (major depressive disorder), recurrent episo de, mild 08/26/2023 Mood insomnia 08/26/2023 Personality disorder 08/26/2023 Edema of both lower legs due to peripheral venous insufficiency 09/29/2018 Bilateral cellulitis of lower leg 09/29/2018 Hypovolemic shock 08/12/2018 Severe obesity (BMI 35.0-39.9) with comorbidity 07/11/2018 Overview (07/11/2018): --BMI 36.34 with diabetes in problem list Osteopenia of multiple sites 07/07/2018 Old NE (myocardial infarction) 04/18/2018 Overview (04/18/2018): -NE > 4 weeks old Schizoaffective disorder, depressive [...] heart disease) 09/09/2015 Overview (07/26/2017): July 2017 Ost RCA lesion 60% stenosed. Mid RCA lesion 40% stenosed. Mid LAD lesion 50% stenosed. Significant but not clearly flow limiting dz Ostial RCA of 50-70% - difficult to image due to angulation with FFR of 0.92 Mid LAD appearing 50% with FFR of 0.82 Normal LVEDP Coronary Findings 12/2015 Dominance: Right Left Main [...] myoc ardial infarction) 08/01/2017 04/18/2018 Overview (04/18/2018): -NE > 4 weeks old -added Old NE Chest pain 07/24/2017 07/26/2018 Overview (07/25/2017): Added automatically from request for surgery [id number] Diarrhea 05/04/2017 07/24/2017 Acute lower UTI 05/04/2017 07/24/2017 Morbid obesity with BMI of 45.0-49.9, adult 05/03/2017 07/24/2017 Metabolic encephalopathy 05/03/2017 Depression with suicidal ideation 05/03/2017 07/24/2017 Intellectual disability 05/03/2017 06/2 Acute chest pain 04/11/2017 08/26/2023 Hypotension 12/19/2016 07/24/2017 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 10/22/2016 08/10/2017 Recurrent major depressive d isorder, in partial remission 10/22/2016 08/26/2023 Coronary artery disease invo lving cachil dehe coronary artery of cachil dehe heart without angina pectoris 12/30/2015 08/26/2023 Ulcer of esophagus without bleeding 12/29/2015 07/24/2017 Angina pectoris 12/27/2015 07/24/2017 Typical atrial flutter 12/26/201508/25 Chest pain at rest 09/09/2015 9 Elevated alkaline phosphatase level 09/09/2015 12/29/2015 Precordial pain 04/01/2015 07/24/2017 Gastrointestinal hemorrhage associated with gastroduodenitis 04/01/2015 09/07/2018 Acute blood loss anemia 04/01/201507/2017 Weakness of left leg 10/19/2014 016 Frequent falls 10/19/2014 07/24/2017 Peripheral motor neuropathy 10/19/2014 07/24/2017 Atrial flutter 07/24/2017 Overview (02/03/2016): EPS, AFL Ablation on 12/31/[address] Tee Immunizations Immunization Administration Dates Next Due Influenza Patient Reported 01/05/2018 Influenza Vaccine Quadrivalent PF 12/27/2015 Pneumococcal Conjugate Vaccine 13 Valent 016 Pneumococcal Polysaccharide 23 Valent 07/26/2017 Surgical History Surgery Date Site/Laterality Comments TONSILLECTOMY ORTHOPEDIC SURGERY JOINT REPLACEMENT left total knee replacement 1999 ANKLE SURGERY UPPER GASTROINTESTINAL ENDOSCOPY 04/03/2015 N/A ESOPHAGOGASTRODUODENOSCOPY WITH BIOPSY AND BRUSHING; Surgeon: Be Brown MD; Location: [facility]; Service: Endoscopy ABLATION [...] Schizoaffective disorder, de pressive type (HCC) 02/19/2017 NE (myocardial infarction) (HCC) Urinary incontinence Intellectual disability [...] 76 10/06/2018 6:00 PM EDT Temperature 36.7 C (98 F) 10/06/2018 4:00 PM EDT Respiratory Rate 18 [...] Date Last Done Comments Wellness Exam Medicare 07[birth year]13/1953 DTaP/TDaP/Td (1 - Tdap) 07/13/1970 Cologuard 07/13/1996 Colonoscopy 07/13/1996 Sigmoidoscopy 07/13/1996 Virtual Colonography 07/13/1996 RSV or 60+ (1 - Risk 50-74 years 1-dose series) 07/13/2001 Zoster (1 of 2) 07/13/2001 Colon Cancer Screening 08/11/2018 FIT 08/11/2018 08/11/2017 Hemoglobin A1c 10/17/2018 04/19/2018, 06/06/2017, 05/02/2017, Additional history exists Lipids 04/19/2019 04/19/2018, 09/05, 08/02/2017, Additional history exists Kidney Health: uACR 05/18/2019 05/17/2018 Kidney Health: eGFR 10/05/2019 10/04/2018, 10/03/2018, 09/29/2018, Additional history exists Diabetic Eye Exam 04/19/2020 04/19/2018 Breast Cancer Screening 07/25/2020 07/25/2018 COVID-19 Vaccine ( season) 2024 Influenza Vaccine (#1) 2024 01/05/2018, 2015 Hepatitis C Screening Completed 10/22/2016 Pneumococcal Vaccine 50+ Completed 07/26/2017, 12/07 Bone Density Screening Completed 07/05/2018 Hepatitis B Vaccine Aged Out No longe r eligible based on patient's age to complete this topic Meningococcal B Vaccine Aged Out No l onger eligible based on patient's age to complete [...] Procedure Name Priority Date/Time Associated Diagnosis Comments BASIC METABOLIC PANEL Timed 10/04/2018 6:21 AM EDT MM MAMMO DIGITAL SCREENING W CAD BILAT Routine 07/25/2018 3:22 PM EDT Encounter for screening mammogram for breast cancer DX BONE DENSITY AXIAL SKELETON Routine 07/05/2018 3:04 PM EDT Menopause ALBUMIN/CREATININE RATIO, RANDOM URINE Routine 05/17/2018 9:24 AM EDT Well [...] Recently Relevant to Health Maintenance Results * (ABNORMAL) BASIC METABOLIC PANEL (10/04/2018 6:21 AM EDT) Sodium 145 136 - 145 mmol/L 10/04/2018 7[facility] Potassium 4.5 3.5 - 5.0 mmol/L 10/04/2018 7:03 AM [facility] Chloride 110(H) 98 - 107 mmol/L 10/04/2018 7:03 [facility] Total CO2 27 22 - 29 mmol/L 10/04/2018 7:03 AM [facility] Anion Gap 8 7 - 16 mmol/L 10/04/2018 7:03 AM [facility] Calcium 9.2 8.8 - 10.4 mg/dL 10/04/2018 7:03 AM [facility] Glucose Lvl 123(H) 82 - 100 mg/dL 10/04/2018 7:03 AM [facility] BUN 31(H) 8 - 23 mg/dL 10/04/2018 7:03 AM [facility] Creatinine 1.34(H) 0.51 - 1.30 mg/dL 10/04/2018 7:03 AM [facility] GFR Afr Am 47(L) >=60 mL/min/1.7 3 m2 10/04/2018 7:03 AM [facility] GFR Non Afr Am 41(L) >=60 mL/min/1.7 3 m2 10/04/2018 7:03 AM [facility] Comment: This estimated GFR was [...] 6:21 AM EDT 10/04/2018 6:38 AM EDT us Sherif Bartholomew MD CHEMISTRY ORDERABLES Final R esult [facility] [address] [facility] [place] [address] * MM MAMMO DIGITAL SCREENING W CAD BILAT (07/25/2018 3:22 PM EDT) Anatomical Region Laterality Modality Breast Bilateral Mammography 07/25/2018 4:07 PM EDT Impressions 07/25/2018 4:07 PM EDT Negative ([id number]) ~ RECOMMENDATION: Routine screening mammogram in 1 [...] for screening mammogram for malignant neoplasm of [id number] ~ MM MAMMO DIG SCREEN CAD BILAT [...] for screening mammogram for malignant neoplasm of [id number] ~ MM MAMMO DIG SCREEN CAD BILAT Bilateral CC and MLO view(s) were taken. There are scattered fibroglandular densities. Prior study comparison: No prior studies available for comparison. No mammographic evidence of malignancy. No suspicious calcifications. ~ IMPRESSION: Negative ([id number]) ~ RECOMMENDATION: Routine screening mammogram in 1 [...] by a Radiologist and CAD. Sharee Segovia [facility] [facility] [place] S Final Result * DX BONE DENSITY AXIAL SKELETON (07/05/2018 3:04 PM EDT) Anatomical Region Laterality Modality Dexa Scan 07/05/2018 Narrative 07/06/2018 12:03 PM EDT Indication: The patient is a female age 65 or older who requires a bone density assessment. Study was performed on SkemA 5. Bone Density: Region BMD T-score Z-score AP Spine (L1, L2, L4) 0.909 -1.1 0.7 Femoral Neck (Left) 0.726 -1.1 0.5 Total Hip (Left) 0.845 -0.8 0.5 Femoral Neck (Right) 0.709 -1.3 0.4 Total Hip (Right) 0.846 -0.8 0.5 1/3 Radius (Left) 0.642 -0.9 1.0 World Health Organization criteria for BMD interpretation [...] 50. 10-year Fracture Risk(1): Major Osteoporotic Fracture 7.9% Hip Fracture 0.7% Reported Risk Factors: [place] (), Neck [...] RATIO URINE (05/17/2018 9:24 AM EDT) Urine Albumin 17.7 mg/L 05/17/2018 4:35 PM EDT [facility] Urine Creatinine 76.0 mg/dL 05/17/2018 4:35 PM EDT [facility] Ur Albumin/Creat Ratio 23 0 - 30 mg/g 05/17/2018 4:35 PM EDT [facility] Urine STRUCTURE OF URINARY TRACT PROPER / Unknown 05/17/2018 9:24 AM EDT 05/17/2018 9:24 AM EDT Sharee Segovia APRN URINE ORDERABLES Final Re sult [facility] [address] [facility] , [place] [address] * (ABNORMAL) HEMOGLOBIN A1C (04/19/2018 9:49 AM EST) Hgb A1C 6.6(H) 4.2 - 5.6 % 04/19/2018 4:07 PM EST [facility] Est. Avg Glucose 143 mg/dL 04/19/2018 4:07 PM EST [facility] Blood VENOUS BLOOD / Unknown Venipuncture / Unknown 04/19/2018 9:49 AM EST 04/19/2018 9:49 AM EST Narrative [facility]ED [facility] - 04/19/2018 4:07 PM EST REFERENCE RANGE: Normal: 4.0-5.6% Pre-diabetes: 5.7-6.4% Provisional diagnosis of diabetes: >6.4% Hgb F>10% and anything which shortens red cell survival, such as hemolytic anemia, or unstable hemoglobin variants such as HbSS, HbSC, or HbCC, will lower the HbA1c value associated with a given level of glycemic control. us Sharee Segovia NETWORK MANAGER CHEMISTRY ORDERABLES Mildred pike Result [facility] [address] [facility] , [place] [address] * LIPID SCREEN (04/19/2018 9:49 AM EST) Cholesterol 116 <=200 mg/dL 04/19/2018 4:24 PM EST [facility] Comment: < 200 Desirable 200 - 239 Borderline High >= 240 High Triglyceride 124 <=150 mg/dL 04/19/2018 4:24 PM EST [facility] Comment: < 150 Normal 150 - 199 Borderline High 200 - 499 High >= 500 Very High HDL 51 >=40 mg/dL 04/19/2018 4:24 PM EST [facility] Comment: > 60 Optimal 40 - 60 Acceptable < 40 Low LDL Calculated 40 <=100 mg/dL 04/19/2018 4:24 PM EST [facility] Comment: < 100 Optimal 100 - 129 Near or above optimal 130 - 159 Borderline High 160 - 189 High >= 190 Very High Non-HDL-C Calculated 65 <=129 mg/dL 04/19/2018 4:24 PM EST [facility] Comment: <130 Desirable 130-159 Above Desirable 160-189 Borderline High 190-219 High >= 220 Very High Fasting Specimen? Yes None 019 4:24 PM EST [facility] Blood VENOUS BLOOD / Unknown Venipuncture / Unknown 04/19/2018 9:49 AM EST 04/19/2018 9:49 AM EST us Sharee Segovia NETWORK MANAGER CHEMISTRY ORDERABLES Mildred l Result Performing Organization Address City/[facility]/ZIP Co de Phone Number [facility] [employer] [address], [place] [address] * (ABNORMAL) FECAL HEME SCREEN (08/11/2017 4:29 PM EDT) Fecal Heme Scrn Positive(A ) Negative 08/11/2017 8:34 PM EDT [facility] Stool COLON STRUCTURE / Unknown 08/11/2017 4:29 PM EDT 08/11/2017 4:29 PM EDT Sharee Segovia NETWORK MANAGER IMMUNOLOGY ORDERABLES Fin al Result Performing Organization Address [facility] Co de Phone Number [facility] [address] [place] [address] * HEPATITIS C ANTIBODY - SCREENING (10/22/2016 2:42 PM EDT) Hep C Ab Negative Negative [facility] Blood specimen (specimen) UPPER LIMB STRUCTURE / Unknown 10/22/2016 2:42 PM EDT 10/22/2016 8:27 PM EDT Shareeyola Segovia NETWORK MANAGER HEMATOLOGY ORDERABLES Fin al Result Performing Organization Address [facility] Co de Phone Number [facility] [address] [place] [address] from Last 3 Months or Most Recently Relevant to Health Maintenance Insurance MEDICARE PART B MEDICARE PART B [facility] [place] MEDICARE PART B [employer] [facility] [place] [id number] * Guarantor: Faby Palm Account Type Relation to Patient Date of Phone Billing Address [place] Personal Family Self Advance Directives For more information, please contact: [phone] * Full Code (Latest Code Status on [...]
--- OUTSIDE RECORDS SUMMARY | 2025-01-30 18:45 | XMS_ITS | Encounter Summary ---
Author Organization [facility] Address [address] [facility] [place] [address] Care Team Providers Care Ride Operator Name Role Phone Sharee Segovia APRN Primary Care Provider [phone] Katheryn Allen RN Unavailable Unavailable Khalida Hunter FURNITURE FABRICATOR, COS Unavailable Unavai Charity Newell RN Unavailable Unavail able Isaura Pickens SENIOR UI SOFTWARE ENGINEER Unavailable Unavail able Encounter Details Date Type Department Care Team (Late st Contact Info) Description 07/29/2017 Lab Requisition [facility] [place] [id number] [facility] Encounter for general adult medical [...] - 145 mmol/L 07/29/2017 10:50 AM EDT [facility] Potassium 4.1 3.5 - 5.0 mmol/L 07/29/2017 10:50 AM EDT [facility] Chloride 101 98 - 107 mmol/L 07/29/2017 10:50 AM EDT [facility] Total CO2 30(H) 22 - 29 mmol/L 07/29/2017 10:50 AM EDT [facility] Anion Gap 13 7 - 16 mmol/L 07/29/2017 10:50 AM EDT [facility] Calcium 9.3 8.8 - 10.2 mg/dL 07/29/2017 10:50 AM EDT [facility] Glucose Lvl 70(L) 82 - 100 mg/dL 07/29/2017 10:50 AM EDT [facility] BUN 18 8 - 23 mg/dL 07/29/2017 10:50 AM EDT [facility] Creatinine 1.33(H) 0.51 - 1.30 mg/dL 07/29/2017 10:50 AM EDT [facility] GFR Afr Am 48 mL/min/1.7 3 m2 07/29/2017 10:50 AM EDT [facility] GFR Non Afr Am 42 mL/min/1.7 3 m2 07/29/2017 10:50 AM EDT [facility] Comment: GFR Afr Am and GFR Non Afr Am calculated using CKD-EPI equation. GFR Category GFR(mL/min/1.73 m ) Kidney Function G1 >=90 Normal or high G2 60-89 Mildly decreased G3a 45-59 Mildly to moderately decreased G3b 30-44 Moderately to severely decreased G4 15-29 Severely decreased G5 <15 Kidney Failure Blood VENOUS BLOOD / Unknown 07/29/2017 5:50 AM EDT 07/29/2017 9:08 AM EDT [facility] CHEMISTRY ORDERABLES Final Resu lt [facility] [address] [place] [address] * CBC (07/29/2017 5:50 AM EDT) WBC 6.6 3.7 - 10.3 x10(3)/mcL 07/29/2017 9:34 AM EDT [facility] RBC 3.99 3.90 - 5.20 x10(6)/mcL 07/29/2017 9:34 AM EDT [facility] Hgb 11.5 11.2 - 15.7 g/dL 07/29/2017 9:34 AM EDT [facility] Hct 36.3 34.0 - 45.0 % 07/29/2017 9:34 AM EDT [facility] MCV 91.0 79.0 - 98.0 fL 07/29/2017 9:34 AM EDT [facility] MCH 28.8 26.0 - 32.0 pg 07/29/2017 9:34 AM EDT [facility] MCHC 31.7 30.7 - 35.5 g/dL 07/29/2017 9:34 AM EDT [facility] RDW 13.2 <=14.9 % 07/29/2017 9:34 AM EDT [facility] Platelet 206 155 - 369 x10(3)/mcL 07/29/2017 9:34 AM EDT [facility] MPV 11.7 8.8 - 12.5 fL 07/29/2017 9:34 AM EDT [facility] Blood VENOUS BLOOD / Unknown 07/29/2017 5:50 AM EDT 07/29/2017 9:08 AM EDT us [facility] HEMATOLOGY ORDERABLES Final Res ult [facility] [address] [place] [address] documented in this encounter Visit Diagnoses Diagnosis Encounter for general adult medical examination without abnormal findings Routine general medical examination at a health care facility documented in this encounter Additional Health Concerns Assessment Noted Time A fall risk assessment has been complete d for the patient 04/21/2017 10:52 AM EST documented as of this encounter Care Teams Ride Operator Relationship Specialty Start Date End Date Sharee Segovia APRN [address] [place] [address] PCP - General Nurse Practitioner-Family 09/21/16 Katheryn Allen, RN Health Advocate Registered Nurse 08/04/17 09/14/17 Khalida Hunter LSW, COS Senior Site Manager 08/09/17 08/29/17 Charity Last RN Lead Medical Technologist Registered Nurse 07/21/18 07/21/18 Isaura Pickens LCSW Senior Site Manager 09/12/18 10/19/18 documented as of this encounter
--- OUTSIDE RECORDS SUMMARY | 2025-01-30 18:45 | XMS_ITS | Encounter Summary ---
Author Organization [place] [address] Care Team Providers Care Rock Mason Apprentice Name Role Phone Alessandra Trevino August NURSING CONSULTANT Primary Care Provider + Sharee Segovia NURSING CONSULTANT Primary Care Provider [phone] Katheryn Allen RN Unavailable Unavailable Khalida Hunter ADMINISTRATIVE CLERK, COS Unavailable Unavai Charity Newell RN Unavailable Unavail able Isaura Pickens STAFFING ADMINISTRATOR Unavailable Unavail able Encounter Details Date Type Department Care Team (Late st Contact Info) Description 12/31/2015 Orders Only [facility] Edg [address] [facility] [address] [place] [address] Elida Martin, NURSING CONSULTANT [address] [place], [place] [id number] Social History Tobacco Use Types Packs/Day Years [...] 12/31/2015 1:35 PM EDT us Elida Martin NURSING CONSULTANT CARDIAC CATH ORDERABLES Final Result [facility] [address] [place] [address] documented in this encounter Visit Diagnoses Not on filedocumented in this encounter Care Teams Rock Mason Apprentice Relationship Specialty Start Date End Date DelmisAlessandra walsh August, NURSING CONSULTANT [address] [place] [id number] PCP - General Nurse Practitioner-Family 08/29/14 09/20/16 Sharee Segovia APRN [address] [place] [address] PCP - General Nurse Practitioner-Family 09/21/16 01/01/19 Katheryn Allen, RN Health Advocate Registered Nurse 08/04/17 09/14/17 Khalida Hunter LSW, COS Senior Sustainability Advisor 08/09/17 08/29/17 Charity Last, RN Anchor Tacker Registered Nurse 07/21/1807/21 Isaura Pickens STAFFING ADMINISTRATOR Senior Sustainability Advisor 09/12/18 9 documented as of this encounter
--- OUTSIDE RECORDS SUMMARY | 2025-01-30 18:45 | XMS_ITS | Encounter Summary ---
Author Organization [place] Address [facility] [place] [address] Care Team Providers Care Slot Technician Name Role Phone Sharee Segovia APRN Primary Care Provider [phone] Katheryn Allen RN Unavailable Unavailable Khalida Hunter SAUSAGE MAKER, COS Unavailable Unavai Charity Newell RN Unavailable Unavail able Isaura Pickens PHONE OPERATOR Unavailable Unavail able Encounter Details Date Type Department Care Team (Late st Contact Info) Description 07/28/2017 Lab Requisition [facility] ADRIEL [place] [id number] [facility] Encounter for general adult medical [...] maintain an ideal body weight General No QunicyLailaSilva S ROSIRonaldo HEMOGLOBIN A1C < 7.0 Result [...] 10.3 x10(3)/mc L 07/28/2017 8:16 AM EDT [facility] RBC 3.87(L) 3.90 - 5.20 x10(6)/mc L 07/28/2017 8:16 AM EDT [facility] Hgb 11.3 11.2 - 15.7 g/dL 07/28/2017 8:16 AM EDT [facility] Hct 35.2 34.0 - 45.0 % 07/28/2017 8:16 AM EDT [facility] MCV 91.0 79.0 - 98.0 fL 07/28/2017 8:16 AM EDT [facility] MCH 29.2 26.0 - 32.0 pg 07/28/2017 8:16 AM EDT [facility] MCHC 32.1 30.7 - 35.5 g/dL 07/28/2017 8:16 AM EDT [facility] RDW 13.4 <=14.9 % 07/28/2017 8:16 AM EDT [facility] Platelet 197 155 - 369 x10(3)/mc L 07/28/2017 8:16 AM EDT [facility] MPV 11.6 8.8 - 12.5 fL 07/28/2017 8:16 AM EDT [facility] Neut Percent 66.3 % 07/28/2017 8:16 AM EDT [facility] Comment:Neutrophils equals s egs plus bands Imm Gran% 0.9 % 07/28/2017 8:16 AM EDT [facility] Comment:Automated count of m etamyelocytes, myelocytes and promyelocytes Lymph Percent 22.4 % 07/28/2017 8:16 AM EDT [facility] [place] Percent 6.5 % 07/28/2017 8:16 AM EDT [facility] Eos Percent 3.2 % 07/28/2017 8:16 AM EDT [facility] Baso Percent 0.7 % 07/28/2017 8:16 AM EDT [facility] Neut # 4.5 1.6 - 6.1 x10(3)/mc L 07/28/2017 8:16 AM EDT [facility] Comment:Neutrophils equals s egs plus bands IMMGRAN# 0.1 0.0 - 0.1 x10(3)/mc L 07/28/2017 8:16 AM EDT [facility] Comment:Automated count of m etamyelocytes, myelocytes and promyelocytes Lymph # 1.5 1.2 - 3.9 x10(3)/mc L 07/28/2017 8:16 AM EDT [facility] [place] # 0.4 0.3 - 0.9 x10(3)/mc L 07/28/2017 8:16 AM EDT [facility] Eos# 0.2 0.0 - 0.5 x10(3)/mc L 07/28/2017 8:16 AM EDT [facility] Baso # 0.1 0.0 - 0.1 x10(3)/mc L 07/28/2017 8:16 AM EDT [facility] Blood VENOUS BLOOD / Unknown 07/28/2017 5:23 AM EDT 07/28/2017 7:55 AM EDT [facility] HEMATOLOGY ORDERABLES Final Res ult [facility] [address] [id number] * (ABNORMAL) COMPREHENSIVE METABOLIC PANEL (07/28/2017 5:23 AM EDT) Sodium 143 136 - 145 mmol/L [facility]2017 [facility] Potassium 4.3 3.5 - 5.0 mmol/L 07/28/2017 9:46 AM EDT [facility] Chloride 103 98 - 107 mmol/L 07/28/2017 9:46 AM EDT [facility] Total CO2 26 22 - 29 mmol/L 07/28[facility]2017 [facility] Anion Gap 14 7 - 16 mmol/L 07/28/2017 9:46 AM [facility] Calcium 9.0 8.8 - 10.2 mg/dL 07/28/2017 9:46 AM [facility] Glucose Lvl 86 82 - 100 mg/dL 07/28/2017 9:46 AM [facility] BUN 23 8 - 23 mg/dL 07/28/2017 9:46 AM EDT [facility] Creatinine 1.30 0.51 - 1.30 mg/dL 07/28/2017 9:46 AM [facility] Albumin 3.5 3.2 - 4.6 gm/dL 07/28/2017 9:46 AM [facility] Total Protein 6.2(L) 6.4 - 8.3 gm/dL 07/28/2017 9[facility] Bili Total 0.3 0.1 - 1.3 mg/dL 07/28/2017 9:46 AM EDT [facility] ALT 12 <=41 IU/L 07/28/2017 9[facility] AST 17 <=40 IU/L 07/28/2017 9:46 AM [facility] Alk Phos 113(H) 35 - 104 IU/L 07/28/2017 9:46 AM EDT [facility] GFR Afr Am 49 mL/min/1.7 3 m2 07/28/2017 9:46 AM EDT [facility] GFR Non Afr Am 43 mL/min/1.7 3 m2 07/28/2017 9:46 AM EDT [facility] Comment: GFR Afr Am and [...] AM EDT 07/28/2017 7:55 AM EDT [facility] CHEMISTRY ORDERABLES Final Resu [facility] [address] [place] [address] documented in this encounter Visit Diagnoses Diagnosis Encounter for general adult medical examination without abnormal findings Routine general medical examination at a health care facility documented in this encounter Additional Health Concerns Assessment Noted Time A fall risk assessment has been complete d for the patient 04/21/2017 10:52 AM EST documented as of this encounter Care Teams Slot Technician Relationship Specialty Start Date End Date Sharee Segovia APRN [address] [place] [address] PCP - General Nurse Practitioner-Family 09/21/16 Katheryn Allen, RN Health Advocate Registered Nurse 08/04/17 09/14/17 Khalida Hunter LSW, COS Data Entry Operator 08/09/17 08/29/17 Charity Last, RN Soaking Pit Operator Registered Nurse 07/21/18 07/21/18 Isaura Pickens, PHONE OPERATOR Data Entry Operator 09/12/18 10/19/18 documented as of this encounter
--- OUTSIDE RECORDS SUMMARY | 2025-01-30 18:45 | XMS_ITS | Clinical Summary ---
Author Organization [facility] Address [address] [place] [address] Care Team Providers Care Supervisor Central Supply Name Role Phone Marcio Rodriguez MD Primary Care Provider + [phone] Allergies Active Allergy Reactions Criticality Noted Date Comments [place] Unknown - Patient st ates they do [...] Health Maintenance Due Date Last Done Comments [facility]-Bone Density Scan 1950 [facility]-Depression Screening 1950 [facility]-/Child/Adol SDOH Screenings 1950 [facility]- SDOH Screenings 07/13/1969 [facility]-Adult SDOH Screenings 07/13/1969 CT Colonography 07/13/1996 Colonoscopy 07/13/1996 FIT-DNA 07/13/1996 FIT 07/13/1996 FOBT 07/13/1996 Sigmoidoscopy 07/13/1996 [facility]-Colorectal Cancer Screening 07/13/1996 [facility]-Zoster Vaccines (1 of 2) 07/13/2001 [id number] Vaccine (3 - season) 2024 04/06/2020, 03/16/2020 [facility]-Influenza Vaccine (#1) 11/06/202401/07, 01/24/2019, 01/05/2018, Additional history exists [facility]-RSV Vaccine: 60+ Years or (1 - 1-dose 75+ series) 07/13/2026 [facility]-DTaP,Tdap,and Td Vaccines (2 - Td or Tdap) 12/16/2029 12/17/2019 [facility]-Pneumococcal Vaccine: 50+ Years Completed 07/26/2017, 12/26/2015, 10/19/2014, Additional history exists [facility]-Breast Cancer Screening Discontinued 07/25/2018 [facility]-Diabetes: Hemoglobin A1C Discontinued 10/28/2018 HPV Vaccines Aged Out No longer eligi ble based on patient's age to complete this topic [facility]-HIB Vaccines Aged Out No longer e [...] Glycohemoglobin Reference Range, 0 years and up: 4.7 to 6.0% . HA1C Interpretive Data: Diagnosis of Diabetes: Diabetic > or = 6.5% Pre-diabetic 5.7 to 6.4% Non-diabetic < or = 5.6% . Glycemic Targets for Type I and Type II Diabetics: Non- Adults <7.0% Adults <6.0% Children and Adolescents <7.5% . Source: [place] [employer]. Standards of medical care in diabetes, 2017. Diabetes Care.2017:40 (suppl 1):S1-S135. . HbA1c assay performed by an ion-exchange chromatography method that is certified traceable to the DCCT. 10/28/2018 7:08 AM EDT 10/28/2018 7:19 AM EDT [facility] BLOOD ORDERABLES Final Re sult [facility] from Last 3 Months or Most Recently Relevant to Health Maintenance Insurance MEDICARE [place]ICAID[place] Care Teams Supervisor Central Supply Relationship Specialty Start Date End Date Marcio Rodriguez MD [address] [place] [address] [place] [address] PCP - General 07/19/20
--- NOTE | 2025-01-30 18:49 | ECG_ITS ---
APPROVED REPORT Exam: Resting ECG HR:52 bpm ECG Measurements Heart Rate 52 AXES MN 167 P 72 QRSd 81 QRS -51 QT 396 T 15 QTc 377 Conclusion SINUS BRADYCARDIA LOW QRS VOLTAGE IN PRECORDIAL LEADS [QRS DEFLECTION < 1.0 mV IN CHEST LEADS] INFERIOR MYOCARDIAL INFARCTION , PROBABLY OLD [40+ ms Q WAVE AND/OR ST/T ABNORMALITY IN II/aVF] Q waves anterolateral leads ABNORMAL ECG Electronically signed by : PABLO HOFF, 02/01/2025 13:53:42
[2025-01-30 19:00] LABS: Hematocrit 44.9 % (37.0-47.0); Hemoglobin 14.7 g/dL (12.2-16.2); Immature Granulocytes % 0.6 %; Mean Corpuscular HGB Conc 32.7 g/dL (31.8-35.4); Mean Corpuscular Hemoglobin 29.2 pg (27.0-31.2); Mean Corpuscular Volume 89.1 fl (81-99); Nucleated Red Blood Cells % 0 %; Platelet Count 124 K/mm3 (142-424); Red Blood Count 5.04 M/mm3 (4.20-5.40); Red Cell Distribution Width-SD 46.5 fL; White Blood Count 6.9 K/mm3 (4.8-10.8)
[2025-01-30 19:10] LABS: Chloride 94 mmol/L (98-107)
[2025-01-30 19:10] LABS: Microscopic, Urine URINE MICROSCOPIC (MICROSCOPIC)
[2025-01-30 19:11] LABS: Albumin Level 3.7 g/dl (3.5-5.0); Potassium 3.5 mmoL/L (3.5-5.1); Sodium 143 mmol/L (136-145)
[2025-01-30 19:14] LABS: Alanine Aminotransferase 14 U/L (12-78); Albumin/Globulin Ratio 1.3 (1.1-1.8); Alkaline Phosphatase 120 U/L (38-126); Anion Gap 13.5 mEq/L (5-15); Aspartate Amino Transferase 24 U/L (14-36); Bilirubin,Total 0.4 mg/dl (0.2-1.3); Blood Urea Nitrogen 15 mg/dl (7-17); Calcium 9.6 mg/dl (8.4-10.2); Carbon Dioxide 39 mmol/L (22.0-30.0); Creatinine Clearance Estimated 70 mL/min (50-200); Creatinine,Serum 1.10 mg/dl (0.52-1.04); Estimated Glomerular Filt Rate 49 ml/min (>60); GFR (African American) 59 ML/MIN (>60); Globulin 2.9 g/dL (1.3-3.2); Glucose 139 mg/dl (74-100); Total Protein,Serum 6.6 g/dl (6.3-8.2)
[2025-01-30 19:14] LABS: Bilirubin,Urine Negative (Negative); Color,Urine YELLOW (Yellow); Glucose,Urine (UA) 3+ (Negative); Ketones,Urine Negative (Negative); Leukocyte Esterase,Urine 3+ (Negative); PH,Urine 6.0 (5.0-8.5); Protein,Urine Negative (Negative); Specific Gravity, Urine <= 1.005 (1.005-1.030); Urobilinogen,Urine 0.2 EU/dl (0.2)
[2025-01-30 19:17] LABS: Acetaminophen < 10 ug/ml (10-30); Salicylate < 1.0 mg/dL (2.0-20.0)
[2025-01-30 19:18] LABS: Ammonia < 9 umol/L (9-30)
[2025-01-30 19:25] LABS: Amphetamine/Metha Screen,Urine Negative ng/ml (<1000)
[2025-01-30 19:26] LABS: Barbiturates Screen,Urine Negative ng/ml (<200)
[2025-01-30 19:27] LABS: Benzodiazepines Screen,Urine Negative ng/ml (<200)
[2025-01-30 19:28] LABS: Bacteria,Urine 4+ /lpf; WBC,Urine TNTC #/hpf (0-3)
[2025-01-30 19:29] LABS: Methadone Screen,Urine Negative ng/ml (<300)
[2025-01-30 19:30] LABS: Opiate Screen,Urine Negative ng/ml (<300); Phencyclidine Screen,Urine Negative ng/ml (<25)
[2025-01-30 19:45] LABS: Thyroid Stimulating Hormone 6.33 uIU/mL (0.465-4.68)
[2025-01-30 21:08] VITALS: BP 145/67; PULSE 52; RESP 16; TEMP 37.2; O2SAT 97
--- NOTE | 2025-01-30 22:01 | PC.NURSE ---
Attempted to call report back to nursing facility with no answer.
--- NOTE | 2025-01-30 22:59 | PC.NURSE ---
Nurse from [facility] [place] called asking for report in which she was informed we had made multiple attempts and she said they had been busy. Spoke with Kayla and gave her report.
--- NOTE | 2025-02-02 05:06 | PC.NURSE ---
urine culture results given to MD Car, no changes to prescriptions at this time
== END 2025-01-30 22:13 | disposition home or self-care (01) ==
PROVIDERS: Nurse Practitioner; Emergency Provider Student in an Organized Health Care Education/Training Program; PCP Internal Medicine Adolescent Medicine
DX: R45.851 Suicidal ideations (principal); N39.0 Urinary tract infection, site not specified; F17.210 Nicotine dependence, cigarettes, uncomplicated; B96.20 Unspecified Escherichia coli [E. coli] as the cause of diseases classified elsewhere
CPT/HCPCS: 70450; 71045; 80053; 80178; 80307; 80320; 80329; 81001; 82140; 84443; 85025; 87086; 87088; 87186; 93005; 99285